=== PATIENT | male | born 1940 | race Caucasian/White ===

== ENCOUNTER 2022-05-12 10:32 | Outpatient (CLI) | payer MEDICARE, BC, SELFPAY ==
[2022-05-12 17:13] LABS: Chloride* 98 mmol/L (96-114); Potassium* 4.3 mmol/L (3.6-5.1); Sodium* 141 mmol/L (135-149)
[2022-05-12 17:15] LABS: Creatinine* 1.9 mg/dL (0.5-1.5); Estimated Glomerular Filt Rate 35 ml/min
[2022-05-12 17:16] LABS: Blood Urea Nitrogen* 51 mg/dL (7-30); Calcium* 9.3 mg/dL (8.4-10.6); Carbon Dioxide* 33 mmol/L (20-32); Glucose* 140 mg/dL (60-115)
== END 2022-05-12 10:33 | disposition home or self-care (01) ==
LOC: LONREF 10:34
PROVIDERS: PCP Family Medicine; Visit Provider Family Medicine
DX: I50.9 Heart failure, unspecified (principal)
CPT/HCPCS: 80048

== ENCOUNTER 2022-05-24 07:57 | Outpatient (CLI) | payer MEDICARE, BC, SELFPAY ==
[2022-05-24 11:42] LABS: Chloride* 91 mmol/L (96-114)
[2022-05-24 11:43] LABS: Albumin* 4.3 g/dL (3.3-5.0); Potassium* 3.8 mmol/L (3.6-5.1); Sodium* 137 mmol/L (135-149)
[2022-05-24 11:45] LABS: Carbon Dioxide* 35 mmol/L (20-32); Creatinine* 2.2 mg/dL (0.5-1.5); Estimated Glomerular Filt Rate 29 ml/min
[2022-05-24 11:46] LABS: Blood Urea Nitrogen* 55 mg/dL (7-30); Calcium* 9.6 mg/dL (8.4-10.6); Glucose* 157 mg/dL (60-115); Phosphorus* 4.1 mg/dL (2.5-4.5)
[2022-05-24 11:51] LABS: Creatinine Urine 40.1 mg/dL
[2022-05-24 11:55] LABS: Microalbumin Creatinine Ratio 190 mg/g (0-30); Microalbumin Urine 8 mg/dL
== END 2022-05-24 07:58 | disposition home or self-care (01) ==
PROVIDERS: Internal Medicine Nephrology; PCP Family Medicine; Visit Provider Family Medicine
DX: N18.30 Chronic kidney disease, stage 3 unspecified (principal); N17.9 Acute kidney failure, unspecified; D64.9 Anemia, unspecified; E78.5 Hyperlipidemia, unspecified; I10 Essential (primary) hypertension
CPT/HCPCS: 80069; 82043; 82570

== ENCOUNTER 2022-06-06 08:18 | Outpatient (CLI) | payer MEDICARE, BC, SELFPAY ==
--- NOTE | 2022-06-06 08:45 | CRLHL7_ITS ---
For Patients: As a result of the Century Cures Act, medical imaging exams and procedure reports are released immediately into your electronic medical record. You may view this report before your referring provider. If you have questions, please contact your health care provider. CLINICAL HISTORY: CHRONIC KIDNEY DISEASE, STAGE 3 UNSPECIFIED, URINE RETENTION COMPARISON: 02/23/2022 and 01/25/2022 TECHNIQUE: Tian scale and color Doppler images were acquired of the kidneys and urinary bladder. FINDINGS: There is a simple exophytic cyst arising from the upper pole of the right kidney measuring 2.9 x 2.7 x 3.4 cm, unchanged. A small exophytic cyst arises from the lower pole measuring 1.8 x 1.5 x 1.6 cm. 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 No hydronephrosis. The right kidney measures 12.2cm in length and the left kidney measures 12.1cm in length. The renal cortex appears of normal thickness. Normal color Doppler flow to both kidneys. The prevoid bladder volume is 100 cc. Postvoid bladder volume 49 cc. Lobular masslike areas are located within the inferior bladder. IMPRESSION: Simple right renal cysts on the right and incidental benign angiomyolipoma left kidney. No hydronephrosis. Lobular masslike areas associated with the inferior bladder, differential diagnosis includes bladder mass or prostatomegaly. CT urogram recommended. Dictated by Bear Reeder MD @ 06/06/2022 9:54:41 AM (Electronically Signed)
== END 2022-06-06 08:19 | disposition home or self-care (01) ==
LOC: US 08:19
PROVIDERS: PCP Family Medicine; Visit Provider Internal Medicine Nephrology
DX: N18.30 Chronic kidney disease, stage 3 unspecified (principal); N28.1 Cyst of kidney, acquired
CPT/HCPCS: 76770

== ENCOUNTER 2022-06-22 08:47 | Outpatient (CLI) | payer MEDICARE, BC, SELFPAY ==
--- OUTSIDE RECORDS SUMMARY | 2022-06-22 08:51 | XMS_ITS | Encounter Summary ---
:1940 Author Organization [place] Address [address] 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 documented as of this encounter Plan of Treatment Upcoming Encounters Date Type Specialty Care Team Description 06/26/2022 Ancillary Procedure Cardiology Seng Canchola MD [address] [place] [address] [place] [id number] (Wo rk) 08/16/2022 Ancillary Procedure Cardiology Timothy Smith MD [address] [place] [phone] (Wo rk) 08/16/2022 Office Visit Cardiology Timothy Smith MD [address] [place] [address] (Wo rk) documented as of this encounter Visit Diagnoses Not on filedocumented in this encounter Care Teams Section Supervisor Relationship Specialty Start Date End Date Graham Licona MD PCP - General Family Medicine 06/30/21 [facility] [address] [place] [address] Timothy Smith MD Assigned Heart and Vascular 07/23/20 [address] Provider [place] [id number] documented as of this encounter
--- OUTSIDE RECORDS SUMMARY | 2022-06-22 08:51 | XMS_ITS | Encounter Summary ---
:1940 Author Organization [place] Address [address] [place] [address] Care Team Providers Name Role Phone Timothy Smith MD Unavailable Graham Licona MD Primary Care Provider Reason for Visit Reason Onset Date Comments fax clearance 02/14/2022 Needs cardiac cleara nce for 02/21/22 surgery Encounter Details Date Type Department Care Team Description 02/14/2022 Telephone [facility] Zarina Smith MD fax clearance (Needs [facility] [place] [address] cardiac clearance for [address] 02/21/22 surgery) [facility] [address] [place] [address] [place] [phone] Social History Tobacco Use Types Packs/Day Years Used Date Never Smoker Smokeless Tobacco: Never Used Alcohol Use Standard Drinks/Week Comments No 0 (1 standard drink = 0.6 oz pure alcoho l) Sex Assigned at Date Recorded Not on file COVID-19 Exposure Response Date Recorded In the last 10 days, have you been in contact with No / Unsu re 02/08/2022 2:58 PM CDT someone who was confirmed or suspected to have Coronavirus/COVID-19? documented as of this encounter Miscellaneous Notes Telephone Encounter - Lacy Washington RN - 02/14/2022 4:23 PM CDT Second request from [facility] for cardiac clearance letter requested to be faxed [phone]. Fax sent. JNelsonRN Telephone Encounter - Temitope Tamayo RN - 02/14/2022 2:14 PM CDT Faxed over to [facility] signed letter from Dr Smith that patient is cleared for hip surgery scheduled for 02/21. Signed letter sent to [facility] to scan. Maldonado RN Telephone Encounter - Timothy Smith MD - 02/14/2022 1:13 PM CDT YES Telephone Encounter - Anel Corado - 02/14/2022 9:41 AM CDT [facility] Call [facility] Phone Message May a detailed message be left on voicemail: yes Reason for Call: Other: [place] calling in stating that pt is having hip surgery on 02/21/22 and they are needing a letter for cardiac clearance faxed over to them at [phone]. Action Taken: Message routed to: Other: ru [facility] Travel Screening: Not Applicable documented in this encounter Plan of Treatment Upcoming Encounters Date Type Specialty Care Team Description 06/26/2022 Ancillary Procedure Cardiology Seng Canchola MD [address] [place] [address] [place] [phone] (Wo rk) 08/16/2022 Ancillary Procedure Cardiology Timothy Smith MD [address] [place] [phone] (Wo rk) 08/16/2022 Office Visit Cardiology Timothy Smith MD [address] [place] [phone] (Wo rk) documented as of this encounter Visit Diagnoses Not on filedocumented in this encounter Care Teams Brusher Operator Relationship Specialty Start Date End Date Graham Licona MD PCP - General Family Medicine 06/30/21 [facility] [address] [place] [address] Timothy Smith MD Assigned Heart and Vascular 07/23/20 [address] Provider [place] [phone] documented as of this encounter
--- OUTSIDE RECORDS SUMMARY | 2022-06-22 08:51 | XMS_ITS | Encounter Summary ---
:1940 Author Organization [place] Address [address] [place] [address] Care Team Providers Name Role Phone Timothy Smith MD Unavailable Graham Licona MD Primary Care Provider Encounter Details Date Type Department Care Team Description 05/03/2022 Travel Social History Tobacco Use Types Packs/Day Years Used Date Never Smoker Smokeless Tobacco: Never Used Alcohol Use Standard Drinks/Week Comments No 0 (1 standard drink = 0.6 oz pure alcoho l) Sex Assigned at Date Recorded Not on file COVID-19 Exposure Response Date Recorded In the last 10 days, have you been in contact Unable to asse ss 05/03/2022 12:42 PM CDT with someone who was confirmed or suspected to have Coronavirus/COVID-19? documented as of this encounter Plan of Treatment Upcoming Encounters Date Type Specialty Care Team Description 06/26/2022 Ancillary Procedure Cardiology Seng Canchola MD [address] [place] [address] [place] [id number] (Wo rk) 08/16/2022 Ancillary Procedure Cardiology Timothy Smith MD [address] [place] [phone] (Wo rk) 08/16/2022 Office Visit Cardiology Timothy Smith MD [address] [place] [phone] (Wo rk) documented as of this encounter Visit Diagnoses Not on filedocumented in this encounter Care Teams Motorcycle Engine Assembler Relationship Specialty Start Date End Date Graham Licona MD PCP - General Family Medicine 06/30/21 [facility] [address] [place] [address] Timothy Smith MD Assigned Heart and Vascular 07/23/20 [address] [facility] [address] Provider [place] [address] documented as of this encounter
--- OUTSIDE RECORDS SUMMARY | 2022-06-22 08:51 | XMS_ITS | Encounter Summary ---
:1940 Author Organization [facility] Address [address] [place] [address] Care Team Providers Name Role Phone Timothy Smith MD Unavailable Graham Licona MD Primary Care Provider Reason for Visit CV Testing (Routine) - Pending Review Specialty Diagnoses / Procedures Referred By Contact Refer red To Contact Diagnoses Cardiac pacemaker in situ Chris De Leon MD Procedures Cardiac Device Check - Remote (Post implant follow up) [address] [place] [id number] Referral ID Status Reason Start Date Expiration Date Visits V isits Requested Authorized [id number] Pending 07/05/2021 07/05/2022 1 1 Review Encounter Details Date Type Department Care Team Description 11/23/2021 Ancillary Procedure [facility] Chris De Leon, Cardiac pacemaker in [facility] situ Heart Care [address] [facility] [address] [place] [address] [place] [phone] Social History Tobacco Use Types Packs/Day Years Used Date Never Smoker Smokeless Tobacco: Never Used Alcohol Use Standard Drinks/Week Comments No 0 (1 standard drink = 0.6 oz pure alcoho l) Sex Assigned at Date Recorded Not on file documented as of this encounter Plan of Treatment Upcoming Encounters Date Type Specialty Care Team Description 06/26/2022 Ancillary Procedure Cardiology Seng Canchola MD [address] [place] [phone] (Wo rk) 08/16/2022 Ancillary Procedure Cardiology Timothy Smith MD [address] [place] [phone] (Wo rk) 08/16/2022 Office Visit Cardiology Timothy Smith MD [address] [place] [phone] (Wo rk) documented as of this encounter Procedures Procedure Name Priority Date/Time Associated Comments Diagnosis INTERROGATION DEVICE Routine 11/24/2021 1:06 PM Cardiac pacema ker Results for this EVAL REMOTE ICD UP TO SINGING TELEGRAM PERFORMER in situ proced ure are in 90 the results section. documented in this encounter Results INTERROGATION DEVICE EVAL REMOTE ICD UP TO 90 (11/24/2021 1:06 PM SINGING TELEGRAM PERFORMER) Component Value Ref Test Analysis Performed Pathologis t Range Method Time At Signature Date Time [id number] [employer] Interrogation Session Implantable [place] [employer] Pulse Generator Senior Support Engineer Implantable D432 RESONATE EL [employer] Pulse Generator ICD Model Implantable [id number] [employer] Pulse Generator Serial Number Type Remote [employer] Interrogation Session Clinic Name [facility] [employer] Implantable Defibrillator [employer] Pulse Generator Type Implantable [id number] [employer] Pulse Generator Implant Date Implantable Lead [place] [employer] Senior Support Engineer Implantable Lead [address] [place] [employer] Model 4-Site S Implantable Lead [id number] [employer] Serial Number Implantable Lead [id number] [employer] Implant Date Implantable Lead Bipolar Lead [employer] Polarity Type Implantable Lead UNKNOWN [employer] Location Detail 1 Implantable Lead Right Ventricle MEDTRON IC Location Brandon Setting VVIR [employer] Mode (NBG Code) Brandon Setting 50 {beats}/ [employer] Lower Rate Limit min Brandon Setting 130 {beats}/ [employer] Maximum Sensor min Rate Lead Channel Bipolar [employer] Setting Sensing Polarity Lead Channel 0.6 mV [employer] Setting Sensing Sensitivity Lead Channel Adaptive [employer] Setting Sensing Adaptation Mode Lead Channel Bipolar [employer] Setting Pacing Polarity Lead Channel 0.4 ms [employer] Setting Pacing Pulse Width Lead Channel 2.0 V [employer] Setting Pacing Amplitude Lead Channel Adaptive [employer] Setting Pacing Capture Mode Zone Setting VF [employer]TR[employer]IC Type Category Zone Setting VF [employer] Vendor Type Category Zone Setting 273 ms MEDTRONIC Detection Interval Zone Setting VT MEDTR[employer]IC Type Category Zone Setting VT MEDTR[employer]IC Vendor Type Category Zone Setting 353 ms [employer] Detection Interval Zone Setting VT MEDTR[employer]IC Type Category Zone Setting VT-1 [employer] Vendor Type Category Zone Setting 400 ms [employer] Detection Interval Lead Channel 469 ohm [employer] Impedance Value Lead Channel 0.7 V [employer]IC Pacing Threshold Amplitude Lead Channel 0.4 ms [employer] Pacing Threshold Pulse Width Battery Date [employer] Time of Measurements Battery Status Beginning of [employer] Service Battery 174 mo [employer] Remaining Longevity Battery 100 % [employer] Remaining Percentage Capacitor Charge Reformation [employer] Type Capacitor Last [id number] [employer] Charge Date Time Capacitor Charge 9.1 s [employer] Time Brandon Statistic [id number] [employer] Date Time Start Brandon Statistic [id number] [employer] Date Time End Brandon Statistic 3 % [employer]TR[employer]IC RV Percent Paced Therapy 0 [employer]TRONIC Statistic Recent Shocks Delivered Therapy 0 MEDTRONIC Statistic Recent Shocks Aborted Therapy 0 MEDTRONIC Statistic Recent ATP Delivered Therapy [id number] [employer] Statistic Recent Date Time Start Therapy [id number] [employer]IC Statistic Recent Date Time End Therapy 0 [employer]TRONIC Statistic Total Shocks Delivered Therapy 0 [employer]TR[employer]IC Statistic Total Shocks Aborted Therapy 8 [employer]TR[employer]IC Statistic Total ATP Delivered Therapy [id number] [employer]IC Statistic Total Date Time End Episode 0 [employer]TRONIC Statistic Recent Count Episode Other MEDTRONIC Statistic Type Category Episode 127 [employer]TR[employer]IC Statistic Recent Count Episode VT MEDTRONIC Statistic Type Category Episode NSVT [employer]TR[employer]IC Statistic Vendor Type Category Episode 0 MEDTRONIC Statistic Recent Count Episode VF [employer]TRONIC Statistic Type Category Episode VF [employer]TR[employer]IC Statistic Vendor Type Category Episode 0 MEDTRONIC Statistic Recent Count Episode VT MEDTRONIC Statistic Type Category Episode VT MEDTRONIC Statistic Vendor Type Category Episode 0 MEDTRONIC Statistic Recent Count Episode VT MEDTRONIC Statistic Type Category Episode VT-1 MEDTR[employer]IC Statistic Vendor Type Category Episode [id number] [employer] Statistic Recent Date Time Start Episode [id number] [employer] Statistic Recent Date Time End Episode [id number] [employer] Statistic Recent Date Time Start Episode [id number] [employer] Statistic Recent Date Time End Episode [id number] [employer] Statistic Recent Date Time Start Episode [id number] [employer]IC Statistic Recent Date Time End Episode [id number] [employer] Statistic Recent Date Time Start Episode [id number] [employer] Statistic Recent Date Time End Episode [id number] [employer] Statistic Recent Date Time Start Episode [id number] [employer]TR[employer]IC Statistic Recent Date Time End Episode APM-55 [employer] Identifier Episode Type Periodic EGM [employer] Category Episode Date [id number] [employer]ONIC Time Episode [id number]-160 [employer] Identifier Episode Type Other [employer]TRONIC Category Episode Date [id number] [employer] Time Anatomical Region Laterality Modality Other Specimen (Source) Anatomical Collection Method Collection Time Re ceived Time Location / / Volume Laterality 11/23/2021 12:40 AM SINGING TELEGRAM PERFORMER Narrative 12/04/2021 10:04 AM SINGING TELEGRAM PERFORMER [place] [employer] Resonate (S) ICD Remote Device Check SALES CLERK FOOD: 3 % ?? Mode: VVIR 50-130 ?? Presenting Rhythm: Irregular VS. On eliq uis. Heart Rate: Stable with good variability . ?? Sensing: WNL ?? Pacing Threshold: WNL ?? Impedance: WNL ?? Battery Status: 14.5 years ? Ventricular Arrhythmia: 127 NSVT episode s logged. 3 EGMs show RVR. The others show NSVT lasting 4-16 seconds wi th rates in the 150s-160s. Patient denies any associated symptoms. ATP: 0 ?? Shocks: 0 ?? Care Plan: Follow up in January with remote device check. He will be due see Dr. Smith in March. Called patient and revie wed results and plan. SIENNA Bolanos I have reviewed and interpreted the agustín ce interrogation, settings, programming and nurse's summary. The dev ice is functioning within normal device parameters. I agree with the curr ent findings, assessment and plan. Chris Hinds MD [facility] C[facility] SERVICES ORDERABL ES documented in this encounter Visit Diagnoses Diagnosis Cardiac pacemaker in situ documented in this encounter Care Teams Folding Rules Printing Machine Operator Relationship Specialty Start Date End Date Graham Licona MD PCP - General Family Medicine 06/30/21 [facility] [address] [place] [address] Timothy Smith MD Assigned Heart and Vascular 07/23/[address] Provider [place] [phone] documented as of this encounter
--- OUTSIDE RECORDS SUMMARY | 2022-06-22 08:51 | XMS_ITS | Encounter Summary ---
:1940 Author Organization [facility] Address [address] [place] [address] Care Team Providers Name Role Phone Timothy Smith MD Unavailable Graham Licona MD Primary Care Provider Encounter Details Date Type Department Care Team Description 03/20/2022 Telephone [facility] Janeth Huizar RN [address] [place] [address] Social History Tobacco Use Types Packs/Day Years Used Date Never Smoker Smokeless Tobacco: Never Used Alcohol Use Standard Drinks/Week Comments No 0 (1 standard drink = 0.6 oz pure alcoho l) Sex Assigned at Date Recorded Not on file documented as of this encounter Miscellaneous Notes Telephone Encounter - Charito Huizar RN - 03/21/2022 3:57 PM CDT Spoke with pt. He verbalizes understanding of medication instructions. -Pt to take 25mg of Toprol XL daily. -start Amiodarone 200mg BID for 1 month. Then decrease back down to 200mg every day. Pt requested script be sent to [facility] [employer] [facility] in [place], [place]. Will escribe this. Pt will call if he has any adverse reactions to this medication switch. Telephone Encounter - Timothy Smith MD - 03/21/2022 3:40 PM CDT OK to keep current dose of metoprolol. Telephone Encounter - Charito Huizar RN - 03/21/2022 10:52 AM CDT Is he to continue the Metoprolol as well? Pt was told by hospitalist at [place] to take 1/2 of 25mg (12.5mg) Toprol XL. He has been taking 1/2 of a 50mg tab (25mg) as he did not get a script for the 25mg tab. If so, what dose should he be on? The 12.5mg or 25mg? Telephone Encounter - Timothy Smith MD - 03/20/2022 4:24 PM CDT Recommend reload amiodarone 200 mg bid for 1 month, then drop to 200 mg daily. Consider VT ablation if he continues to have recurrent VT with ICD shocks after the above trial. Telephone Encounter - Charito Huizar RN - 03/20/2022 2:58 PM CDT Pt had scheduled remote device check today. Last on was on 11/23/21. Since then, he has had multiple alerts that have been addressed for VT, ATP and shocks. Pt has had 90+ episodes of NSVT since last check. Pt reports he was in the hospital at [facility]. He reports he was discharged on Metoprolol XL and was told to take 12.5mg or 1/2 tab daily. Pt reports med he was given is the Toprol XL 50 mg. He is not wanting to divide these in 1/4 tabs so has been halfing them and taking 25mg of Toprol XLsince he doesn't have the correct pill. Attempted to reach Dr. Shaikh SANTANA at [place] but prescribing MD was a hospitalist and he is unavailable. Per his note on 5/24/22: CHANGE how you take these medicines Instructions metoprolol succinate 25 mg Sustained-Release tablet For diagnoses: Typical atrial flutter (HC) What changed: medication strength how much to take Commonly known as: TOPROL XL Take 0.5 Tablets (12.5 mg) by mouth once daily. Will route to Dr. Smith as pt on wrong dose of Metoprolol and unable to reach prescribing MD. Adam Huizar RN documented in this encounter Plan of Treatment Upcoming Encounters Date Type Specialty Care Team Description 06/26/2022 Ancillary Procedure Cardiology Seng Canchola MD [address] [place] [phone] (Wo rk) 08/16/2022 Ancillary Procedure Cardiology Timothy Smith MD [address] [place] [phone] (Wo rk) 08/16/2022 Office Visit Cardiology Timothy Smith MD [address] [place] [phone] (Wo rk) documented as of this encounter Visit Diagnoses Diagnosis Sustained VT (ventricular tachycardia) - Primary Paroxysmal ventricular tachycardia documented in this encounter Care Teams Chucking Lathe Operator Relationship Specialty Start Date End Date Graham Licona MD PCP - General Family Medicine 06/30/21 [facility] [address] [place] [address] Timothy Smith MD Assigned Heart and Vascular 07/23/[address] Provider [place] [id number] documented as of this encounter
--- OUTSIDE RECORDS SUMMARY | 2022-06-22 08:51 | XMS_ITS | Encounter Summary ---
:1940 Author Organization [place] Address [address] [place] [address] Care Team Providers Name Role Phone Timothy Smith MD Unavailable Graham Licona MD Primary Care Provider Reason for Visit Reason Comments Heart Problem ICD shocks Encounter Details Date Type Department Care Team Description 01/27/2022 Documentation Only [facility] Catherine Aranda eart Problem (ICD [facility] [place] Cren[place] LPN shocks) [address] [facility] [address] [place] [address] Social History Tobacco Use Types Packs/Day Years Used Date Never Smoker Smokeless Tobacco: Never Used Alcohol Use Standard Drinks/Week Comments No 0 (1 standard drink = 0.6 oz pure alcoho l) Sex Assigned at Date Recorded Not on file documented as of this encounter Progress Notes Catherine Aranda LPN - 01/27/2022 3:47 PM CDT Pt called my line as we have done patient Assistance in the past, so he has my direct ph #. I picked up the call live-don tells me he has had 4 shocks today. I tried to transfer call, but it would have gone to , so I walked down to our device RN Ivette , and gave her the message, she agrees to call pt yvette cummins Kitty Myers RN - 01/27/2022 3:47 PM CDT Called and spoke with patient regarding his shocks. He states that he got 4 shocks today. He did notpass out but he did feel somewhat faint. He feels well now. Patient states [facility] They felt that he was in stable condition and he was discharged home. Patient states that he will not be back before the clinic closes this tonight. He will go send a remote device transmission when he gets home so we can make sure that we have the EGMs from his shocks available to review on Sunday. Patient states understanding and agreement with plan. He is currently scheduled to see Dr. Smith 02/08/22. documented in this encounter Plan of Treatment Upcoming Encounters Date Type Specialty Care Team Description 06/26/2022 Ancillary Procedure Cardiology Seng Canchola MD [address] [place] [phone] (Wo rk) 08/16/2022 Ancillary Procedure Cardiology Timothy Smith MD [address] [place] [address] (Wo rk) 08/16/2022 Office Visit Cardiology Timothy Smith MD [address] [place] [address] (Wo rk) documented as of this encounter Visit Diagnoses Not on filedocumented in this encounter Care Teams Lead Cytogenetic Technologist Relationship Specialty Start Date End Date Graham Licona MD PCP - General Family Medicine 06/30/21 [facility] [address] [place] [address] Timothy Smith MD Assigned Heart and Vascular 07/23/[address] Provider [place] [id number] documented as of this encounter
--- OUTSIDE RECORDS SUMMARY | 2022-06-22 08:51 | XMS_ITS | Encounter Summary ---
:1940 Author Organization [facility] Address [address] [place] [address] Care Team Providers Name Role Phone Timothy Smith MD Unavailable Graham Licona MD Primary Care Provider Reason for Visit Reason Comments Medication Question Re eliquis dose Encounter Details Date Type Department Care Team Description 05/29/[address] [facility] Catherine Aranda edication Question Heart [facility] Patt Crenshaw LPN (Re eliquis dose) [address] [facility] [address] [place] [id number] Social History Tobacco Use Types Packs/Day [...] have Coronavirus/COVID-19? documented as of this encounter Progress Notes Catherine Aranda LPN - 05/29/2022 9:22 AM CDT Pt called and left me a VM message, he wanted to make sure he was still supposed to be taking eliquis 5 mg I did a review of his last OV w/ Dr Smith, and YEs he is to remain on this medication and dose-did also remind him that his remote device check is sched 06-26-22, and next EP visit with Dr Smith is 08-16-22 Pt verbalized his understanding and agreement yvette cummins documented in this encounter Plan of Treatment Upcoming Encounters Date Type Specialty Care Team Description 06/26/2022 Ancillary Procedure Cardiology Seng Canchola MD [address] [place] [id number] (Wo rk) 08/16/2022 Ancillary Procedure Cardiology Timothy Smith MD [address] [place] [id number] (Wo rk) 08/16/2022 Office Visit Cardiology Tiomthy Smith MD [address] [place] [id number] (Wo rk) documented as of this encounter Visit Diagnoses Not on filedocumented in this encounter Care Teams Hatchery Laborer Relationship Specialty Start Date End Date Graham Licona MD PCP - General Family Medicine 06/30/21 [facility] [address] [place] [address] Timothy Smith MD Assigned Heart and Vascular 07/23/[address] Provider [place] [id number] documented as of this encounter
--- OUTSIDE RECORDS SUMMARY | 2022-06-22 08:51 | XMS_ITS | Encounter Summary ---
:1940 Author Organization [facility] Address [address] [place] [address] Care Team Providers Name Role Phone Timothy Smith MD Unavailable Graham Licona MD Primary Care Provider Reason for Visit Reason Onset Date Comments Implantable Devices 05/01/2022 Encounter Details Date Type Department Care Team Description 05/01/2022 Telephone [facility] Eve Santos, Impla ntable Devices [facility] Heart RN Care [address] [facility] [address] [place] [address] Social History Tobacco Use Types Packs/Day Years Used Date Never Smoker Smokeless Tobacco: Never Used Alcohol Use Standard Drinks/Week Comments No 0 (1 standard drink = 0.6 oz pure alcoho l) Sex Assigned at Date Recorded Not on file documented as of this encounter Miscellaneous Notes Telephone Encounter - Timothy Smith MD - 05/01/2022 3:07 PM CDT It is ok for the primary care physician to take care of diuretics. Telephone Encounter - Eve Santos RN - 05/01/2022 2:31 PM CDT Images from the original note were not included. Alert received for HeartLogic??? Heart Failure Index remains above the alert recovery threshold of 6. HeartLogic Index currently measuring 17. Spoke with patient who states he has gained about 12 lbs in one month and he believes this is due to water weight. Has not noticed any swelling or edema. Patient has been in touch with his primary MD, Dr. Licona, regarding this. Per patient, Dr. Licona prescribed 2.5mg metolazone daily which he started taking about 2 weeks ago. Pt states he has not noticed any decrease in weight since starting onthis medication. (Patient also takes 40mg lasix daily). Pt denies any worseing SOB or activity intolerance. Pt did sound somewhat winded to me when talking with him over the phone; when questioned about this patient states he has been working to get back to baseline since his hospitalization for a hip replacement in January. Spoke with SIENNA Milian at patient's primary clinic who will be contacting Dr. Licona for review and recommendations regarding of above information. Will also route to Dr. Smith as an FYI. SIENNA Partida Refer to below for picture of HeartLogic trends documented in this encounter Plan of Treatment Upcoming Encounters Date Type Specialty Care Team Description 06/26/2022 Ancillary Procedure Cardiology Seng Canchola MD [address] [place] [id number] (Wo rk) 08/16/2022 Ancillary Procedure Cardiology Timothy Smith MD [address] [place] [id number] (Wo rk) 08/16/2022 Office Visit Cardiology Timothy Smith MD [address] [place] [id number] (Wo rk) documented as of this encounter Visit Diagnoses Not on filedocumented in this encounter Care Teams Maintenance Truck Driver Relationship Specialty Start Date End Date Graham Licona MD PCP - General Family Medicine 06/30/21 [facility] [address] [place] [address] Timothy Smith MD Assigned Heart and Vascular 07/23/20 [address] Provider [place] [id number] documented as of this encounter
--- OUTSIDE RECORDS SUMMARY | 2022-06-22 08:51 | XMS_ITS | Encounter Summary ---
:1940 Author Organization [facility] Address [address] [place] [address] Care Team Providers Name Role Phone Timothy Smith MD Unavailable Graham Licona MD Primary Care Provider Encounter Details Date Type Department Care Team Description 03/06/2022 [facility] Keyshawn Myers RN [id number] [place] [address] Social History Tobacco Use Types [...] this encounter Miscellaneous Notes Telephone Encounter - Kitty Myers RN - 03/06/2022 9:45 AM CDT Images from the original note were not included. Remote alert received for heart logic index at 38 and trending up. Patient states that he had a hip replacement done 2 weeks ago. His legs are swollen but he is still at inpatient rehab and they are wrapping his legs and monitoring him closely. Will continue to monitor. documented in this encounter Plan of Treatment Upcoming Encounters Date Type Specialty Care Team Description 06/26/2022 Ancillary Procedure Cardiology Seng Canchola MD [address] [place] [id number] (Wo rk) 08/16/2022 Ancillary Procedure Cardiology Timothy Smith MD [address] [place] [id number] (Wo rk) 08/16/2022 Office Visit Cardiology Timothy Smith MD [address] [place] [id number] (Wo rk) documented as of this encounter Visit Diagnoses Not on filedocumented in this encounter Care Teams Psych Therapist Relationship Specialty Start Date End Date Graham Licona MD PCP - General Family Medicine 06/30/21 [facility] [address] [place] [address] Timothy Smith MD Assigned Heart and Vascular 07/23/[address] Provider [place] [id number] documented as of this encounter
--- OUTSIDE RECORDS SUMMARY | 2022-06-22 08:51 | XMS_ITS | Clinical Summary ---
:1940 Author Organization [facility] Address [address] [facility] [place] [address] Care Team Providers Name Role Phone Timothy Smith MD Unavailable Graham Licona MD Primary Care Provider Allergies Active Allergy Reactions Severity Noted Date Comments Adhesive Tape Rash Low 01/20/2022 Pravastatin Rash Medium 06/30/2021 Medications Medication Sig Dispensed Refills Start Date End Date Status ACYCLOVIR 400 MG OR 1 TABLET 3 TIMES 30 6 04/25/2004 Active TABS DAILY-as need for Cold sores fenofibrate 160 MG Take 160 mg by 0 Active tablet mouth daily. furosemide (LASIX) 40 Take 40 mg by 0 Active MG tablet mouth daily nitroGLYcerin Place 1 tablet 100 tablet 3 02/24/2020 Active (NITROSTAT) 0.4 MG (0.4 mg) under sublingual the tongue every tabletIndications: 5 minutes as Coronary artery disease needed for chest involving [place] pain coronary artery of [place] heart without angina pectoris metoprolol succinate ER Take 1 tablet 90 tablet 3 03/23/2021 Active (TOPROL-XL) 50 MG 24 hr (50 mg) by mouth tabletIndications: daily Persistent atrial fibrillation (H) atorvastatin (LIPITOR) Take 20 mg by 0 Active 20 MG tablet mouth daily loratadine (CLARITIN) Take 10 mg by 0 Active 10 MG tablet mouth daily glimepiride (AMARYL) 2 Take 2 mg by 0 Active MG tablet mouth 2 times daily biotin 1000 MCG TABS Take 1,000 mcg 0 Active tablet by mouth daily omeprazole (PRILOSEC) Take 20 mg by [address] capsule mouth daily metFORMIN (GLUCOPHAGE) Take 2 tablets 0 06/30/2021 Active 500 MG (1,000 mg) by tabletIndications: Type mouth 2 times 2 diabetes mellitus daily (with with complication (H) meals) tamsulosin (FLOMAX) 0.4 Take 0.4 mg by 0 Active MG capsule mouth every evening apixaban ANTICOAGULANT Take 1 tablet (5 60 tablet 3 09/06/2021 Active (ELIQUIS) 5 MG mg) by mouth 2 tabletIndications: times daily Persistent atrial fibrillation (H) amiodarone (PACERONE) Take 1 tablet 90 tablet 3 01/30/2022 Active 200 MG (200 mg) by tabletIndications: mouth daily Sustained VT (ventricular tachycardia) amiodarone (PACERONE) Take 1 tablet 60 tablet 0 03/21/2022 Active 200 MG (200 mg) by tabletIndications: mouth daily Sustained VT (ventricular tachycardia) Active Problems Problem Noted Date Morbid obesity 04/26/2021 Sustained VT (ventricular tachycardia) 01/29/2021 Localized edema 06/11/2018 Chest pain 03/07/2016 ACS (acute coronary syndrome) 02/02/2016 Other psoriasis 04/25/2004 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 Provider to review Atrial flutter Sleep apnea Coronary artery disease A-fib Encounters Date Type Specialty Care Team Description 05/29/2022 Documentation Only Cardiology Catherine Aranda, Med ication Question (Re EXTRUSION DIE COORDINATOR eliquis dose) 05/03/2022 Telephone Cardiology Timothy Smith MD Orders (Cardi ac device check in-clinic / Extend order ) 05/03/2022 Travel 05/01/2022 Telephone Cardiology Eve Santos, RN Implant able Devices from Last 3 Months Immunizations Name Administration Dates Next Due Influenza (IIV3) PF 08/06/2004 Family History Medical History Relation Comments Obesity Daughter 2 Heart Disease Father Obesity Paternal Grandmother Obesity Son 2 Relation Status Comments Daughter 1 Alive Daughter 2 Father (Age 87) Paternal Grandmother Son 1 Alive Son 2 Social History Tobacco Use Types Packs/Day Years Used Date Never Smoker Smokeless Tobacco: Never Used Alcohol Use Standard Drinks/Week Comments No 0 (1 standard drink = 0.6 oz pure alcoho l) Sex Assigned at Date Recorded Not on file Last Filed Vital Signs Vital Sign Reading Time Taken Comments Blood Pressure 110/70 02/08/2022 3:14 PM CDT Pulse 75 02/08/2022 3:14 PM CDT Temperature 36.6 ??C (97.9 ??F) 07/04/2021 12:03 PM CDT Respiratory Rate 16 07/04/2021 4:00 PM CDT Oxygen Saturation 95% 02/08/2022 3:14 PM CDT Inhaled Oxygen Concentration - - Weight 124.5 kg (274 lb 8 oz) 02/08/2022 3:14 PM CDT Height 174 cm (5' 8.5) 02/08/2022 3:14 PM CDT Body Mass Index 41.13 02/08/2022 3:14 PM CDT Plan of Treatment Upcoming Encounters Date Type Specialty Care Team Description 06/26/2022 Ancillary Procedure Cardiology Seng Canchola MD [address] [place] [id number] (Wo rk) 08/16/2022 Ancillary Procedure Cardiology Timothy Smith MD [address] [place] [id number] (Wo rk) 08/16/2022 Office Visit Cardiology Timothy Smith MD [address] [place] [id number] (Wo rk) Health Maintenance Due Date Last Done Comments ADVANCE CARE PLANNING 1940 ANNUAL REVIEW OF HM ORDERS 1940 DIABETIC FOOT EXAM 1940 EYE EXAM 1940 HF ACTION PLAN 1940 MICROALBUMIN 1940 FALL RISK ASSESSMENT 2003 MEDICARE ANNUAL WELLNESS 2003 VISIT ZOSTER IMMUNIZATION (2 of 08/26/2014 07/01/2014 3) LIPID 02/02/2017 02/03/2016, 04/25/2004 ALT 07/04/2019 07/04/2018, 05/03/2018, 04/25/2004 A1C 09/19/2021 06/20/2021, 02/03/2016, 02/02/2012, Additional history exists PHQ-2 (once per calendar 10/01/2021 year) BMP 01/02/2022 07/04/2021, 02/03/2019, 01/22/2019, Additional history exists INFLUENZA VACCINE (#1) 2022 06/28/2021, 06/24/2020, 08/15/2019, Additional history exists CBC 07/04/2022 07/04/2021, 07/04/2018, 05/31/2018, Additional history exists DTAP/TDAP/TD IMMUNIZATION 08/02/2031 08/02/2021, 06/07/2011 , (3 - Td or Tdap) 09/29/2002, Additional history exists Pneumococcal Vaccine: 65+ Completed 10/18/2015, 05/29/2011 , Years 07/07/2005, Additional history exists TSH W/FREE T4 REFLEX Completed 05/03/2018, 02/02/2012, 02/02/2012 COVID-19 Vaccine Completed 01/19/2022, 07/14/2021, 12/04/2020, Additional history exists IPV IMMUNIZATION Aged Out No longer eligi ble based on patient 's age to complete this topic MENINGITIS IMMUNIZATION Aged Out No longe r eligible based on patient 's age to complete this topic Medical Devices Implanted Type Area Twitchell Operator Device Shelf Model / Identifier Expiration Serial / Date Lot [facility]cd [facility] Df4 - [id number] ICD [place] 09/09/2021 [id number] / Implanted: Qty: 1 on 07/04/2021 at [facility] [employer] [place] [id number] / [id number] Lead Wires- Right Atrium-02/04/2016 Lead Wires- [employer] MEDICA L [id number]-52 / Implanted: 02/04/2016 by Timothy Smith MD (Quantity not on file) R ight [employer] INC [id number] / Explanted: 07/04/2021 (Quantity not on file) Lead Wires- Right Ventricle-02/04/2016 Lead Wires- [employer] MED ICAL 8TC-58 / Implanted: 02/04/2016 by Timothy Smith MD (Quantity not on file) Right INC [id number] / Explanted: 07/04/2021 (Quantity not on file) Ventricle Lead [place] [employer] Df4 Af 59 Cm 0272 - [id number] Leads [place] 04/07/2023 [id number] / Implanted: Qty: 1 on 07/04/2021 at [facility] [employer] [place] [id number] / [id number] Pacemaker-Dino Sci Pacemaker [place] ES MARYO HAI GRIJALVA [id number] / Implanted: 02/04/2016 by Timothy Smith MD (Quantity not on file) [employer] [place] [id number] / Explanted: 07/04/2021 (Quantity not on file) Insurance Payer Benefit Plan / Subscriber ID Effective Phone Address T ype Group Dates MEDICARE MEDICARE FOR HB [id number] 2003-Pres [phone] ATTN CLAIMS Medicare SUPPLEMENT ent [address] [facility] [place] [address] BCBS BCBS SNOQUALMIE [id number] 2016-Prese [phone] [address] [address] PPO BLUE nt [address] [place] [address] (Home) [place] [phone] [address] (Work) Advance Directives For more information, please contact: [phone] Latest Code Status on File Code Status Date Activated Date Inactivated Comments Full Code 02/04/2016 9:52 AM 07/04/2021 11:49 AM Full Code 02/02/2016 9:20 PM 02/04/2016 9:52 AM Full Code 02/01/2012 2:37 PM 02/04/2012 6:16 PM Care Teams Lead Painter Relationship Specialty Start Date End Date Graham Licona MD PCP - General Family Medicine 06/30/21 [facility] [address] [place] [address] Timothy Smith MD Assigned Heart and Vascular 07/23/20 [address] Provider [place] [id number]
--- OUTSIDE RECORDS SUMMARY | 2022-06-22 08:51 | XMS_ITS | Encounter Summary ---
:1940 Author Organization [place] Address [address] [place] [address] Care Team Providers Name Role Phone Timothy Smith MD Unavailable Graham Licona MD Primary Care Provider Reason for Referral Consultation (Routine: Next available opening) - Pending Review Specialty Diagnoses / Procedures Referred By Contact Refer red To Contact Cardiovascular Disease Diagnoses Paroxysmal ventricular tachycardia Timothy Smith MD [address] [place] [address] Referral ID Status Reason Start Date Expiration Date Visits V isits Requested Authorized [id number] Pending 02/08/2022 02/08/2023 1 1 Review iagnostic Imaging XR (Routine) - Pending Review Specialty Diagnoses / Procedures Referred By Contact Refer red To Contact Diagnoses Paroxysmal ventricular tachycardia Timothy Smith MD Procedures XR Chest [address] [place] [address] Referral ID Status Reason Start Date Expiration Date Visits V isits Requested Authorized [id number] Pending 02/08/2022 02/08/2023 1 1 Review Reason for Visit Reason Comments Annual Visit Annual f/up (Routine) - Closed Specialty Diagnoses / Procedures Referred By Contact Refer red To Contact Diagnoses Sustained VT (ventricular tachycardia) Timothy Smith MD [address] [place] [address] Referral ID Status Reason Start Date Expiration Date Visits Requ ested Visits Authorized [id number] Closed 03/23/2021 03/23/2022 1 1 Encounter Details Date Type Department Care Team Description 02/08/2022 Office Visit [facility] Timothy Smith MD Persistent atrial fibrillation (H) (Prim arnie Dx); [facility] [address] Paroxy smal ventricular tachycardia (H) [facility] [address] [place], [place] [address] [address] [place], [place] (Work) [address] Social History Tobacco Use Types Packs/Day Years [...] have Coronavirus/COVID-19? documented as of this encounter Last Filed Vital Signs Vital Sign Reading Time Taken Comments Blood Pressure 110/70 02/08/2022 3:14 PM CDT Pulse 75 02/08/2022 3:14 PM CDT Temperature - - Respiratory Rate - - Oxygen Saturation 95% 02/08/2022 3:14 PM CDT Inhaled Oxygen Concentration - - Weight 124.5 kg (274 lb 8 oz) 02/08/2022 3:14 PM CDT Height 174 cm (5' 8.5) 02/08/2022 3:14 PM CDT Body Mass Index 41.13 02/08/2022 3:14 PM CDT documented in this encounter Progress Notes Timothy Smith MD - 02/08/2022 3:47 PM CDT Service Date: 02/08/2022 HISTORY OF PRESENT ILLNESS: I saw Mr. Villa for follow-up of atrial fibrillation and ventricular tachycardia. He is an 81-year-old white male, who initially received a dual-chamber pacemaker for sinus node dysfunction. He subsequently developed persistent atrial fibrillation and was on rate control and anticoagulation therapy. Last year, he was found to have recurrent VT and the pacemaker system was upgraded to a single-chamber ICD in 07/2021. Recently, the patient had recurrent sustained VT with failed ATP for some episodes. He ended up with 6 ICD shocks. That happened over the last several weeks.On 01/30/2022, the patient was started on amiodarone 200 mg p.o. daily. At the present time, he feels well with no palpitation, shortness of breath or chest pain. The patient is known to have a normal LV ejection fraction. He has type 2 diabetes, sleep apnea, hypertension, coronary artery disease with previous CABG. The patient is scheduled to have a hip replacement in the next few weeks. PHYSICAL EXAMINATION: VITAL SIGNS: Today, the blood pressure was 110/70, heart rate 75 beats per minute, body weight 274 pounds. He came to the clinic with a walker. HEENT: The eyes and ENT were unremarkable. LUNGS: Clear. CARDIAC: Rhythm was regular and heart sounds were normal without murmur. ABDOMEN: Severe obesity. EXTREMITIES: There was chronic bilateral leg edema. EKG showed accelerated junctional rhythm with right bundle branch block. ASSESSMENT AND RECOMMENDATIONS: Mr. Villa has received multiple ICD shocks from recurrent VT. He appears to be doing well on amiodarone for now. I agree for him to continue amiodarone therapy indefinitely. He has chronic renal insufficiency, which makes him not an ideal candidate for sotalol. The patient may need to withhold Eliquis for hip replacement. He is asked to continue amiodarone without interruption for the surgery. I ordered a 6-month amiodarone lab panel. He will come back for follow-up in 6 months. cc: Juan José Licona MD [facility] [address] [place] [address] Timothy Smith MD MT: angela Name: RADHA VILLA Account: [id number] : 1940 Service Date: 02/08/2022 Document: [id number] Timothy Smith MD - 02/08/2022 3:15 PM CDT HPI and Plan: See dictation Orders Placed This Encounter Procedures ??? XR Chest 2 Views ??? Hepatic panel ??? Basic metabolic panel ??? TSH ??? Follow-Up with Cardiology EP ??? EKG 12-lead complete w/read - Clinics (performed today) ??? EKG 12-lead complete w/read (Future)- to be scheduled ??? Pulmonary function test No orders of the defined types were placed in this encounter. There are no discontinued medications. Encounter Diagnoses Name Primary? Persistent atrial fibrillation (H) Yes ??? Paroxysmal ventricular tachycardia (H) CURRENT MEDICATIONS: Current Outpatient Medications Medication Sig Dispense Refill ??? ACYCLOVIR 400 MG OR TABS 1 TABLET 3 TIMES DAILY-as need for Cold sores 30 6 ??? amiodarone (PACERONE) 200 MG tablet Take 1 tablet (200 mg) by mouth daily 90 tablet 3 ??? apixaban ANTICOAGULANT (ELIQUIS) 5 MG tablet Take 1 tablet (5 mg) by mouth 2 times daily 60 tablet 3 ??? atorvastatin (LIPITOR) 20 MG tablet Take 20 mg by mouth daily ??? biotin 1000 MCG TABS tablet Take 1,000 mcg by mouth daily ??? fenofibrate 160 MG tablet Take 160 mg by mouth daily. ??? furosemide (LASIX) 40 MG tablet Take 40 mg by mouth daily ??? glimepiride (AMARYL) 2 MG tablet Take 2 mg by mouth 2 times daily ??? loratadine (CLARITIN) 10 MG tablet Take 10 mg by mouth daily ??? metoprolol succinate ER (TOPROL-XL) 50 MG 24 hr tablet Take 1 tablet (50 mg) by mouth daily 90 tablet 3 ??? nitroGLYcerin (NITROSTAT) 0.[address] 1 tablet (0.4 mg) under the tongue every 5 minutes as needed for chest pain 100 tablet 3 ??? omeprazole (PRILOSEC) [address] capsule Take 20 mg by mouth daily ??? tamsulosin (FLOMAX) 0.4 MG capsule Take 0.4 mg by mouth every evening ??? metFORMIN (GLUCOPHAGE) 500 MG tablet Take 2 tablets (1,000 mg) by mouth 2 times daily (with meals) (Patient not taking: Reported on 02/08/2022) ALLERGIES Allergies Allergen Reactions ??? Pravastatin Rash ??? Adhesive Tape Rash PAST MEDICAL HISTORY: Past Medical History: Diagnosis Date ??? Arthritis ??? Atrial flutter (H) sp ablation 02/27/2013 ??? Coronary artery disease sp CABG ??? Hypertension ??? Melanoma (H) right eye ??? Mumps ??? Persistent atrial fibrillation (H) ??? Sinus node dysfunction (H) with recurrent near syncope, PM 02/03/2016 ??? Sleep apnea ??? Sustained VT (ventricular tachycardia) (H) 01/2021 ??? Type II diabetes mellitus (H) PAST SURGICAL HISTORY: Past Surgical History: Procedure Laterality Date ??? CATHETER, ABLATION 01/2013 Atrial flutter ??? CHOLECYSTECTOMY ??? EP ICD N/A 07/04/2021 Procedure: Implantable Cardioverter-Defibrillator (ICD); Surgeon: Chris De Leon MD; Location: HEART CARDIAC SENIOR TREASURY ANALYST ??? EP PACEMAKER 02/04/2016 SSS ??? HC LEFT HEART CATHETERIZATION 01/2012 see report ??? HERNIA REPAIR ??? ORTHOPEDIC SURGERY ??? rotator cuff ??? TESTICLE SURGERY ??? VASECTOMY ??? ZZC CABG, ARTERY-VEIN, FOUR 1986 FAMILY HISTORY: Family History Problem Relation Age of Onset ??? Heart Disease Father ??? Obesity Paternal Grandmother ??? Obesity Daughter ??? Obesity Son SOCIAL HISTORY: Social History Socioeconomic History ??? Marital status: Spouse name: None ??? Number of children: None ??? Years of education: None ??? Highest education level: None Tobacco Use ??? Smoking status: Never Smoker ??? Smokeless tobacco: Never Used Substance and Sexual Activity ??? Alcohol use: No ??? Drug use: No Other Topics Concern ??? Parent/sibling w/ CABG, MD or angioplasty before 65F 55M? No ??? Caffeine Concern Yes Comment: 2 cups coffe ??? Sleep Concern No ??? Stress Concern No ??? Special Diet No ??? Exercise No Review of Systems: Skin: Negative Eyes: Positive for glasses ENT: Negative Respiratory: Positive for sleep apnea;CPAP Cardiovascular: edema;Positive for Gastroenterology: Negative Genitourinary: Negative Musculoskeletal: Negative Neurologic: Negative Psychiatric: Negative Heme/Lymph/Imm: Negative Endocrine: Positive for diabetes Physical Exam: Vitals: BP 110/70 (BP Location: Right arm, Patient Position: Sitting, Cuff Size: Adult Large) Pulse 75 Ht 1.74 m (5' 8.5) Wt 124.5 kg (274 lb 8 oz) SpO2 95% BMI 41.13 kg/m?? Constitutional: cooperative, alert and oriented, well developed, well nourished, in no acute distress morbidly obese uses a walker Skin: warm and dry to the touch pacemaker incision in the left infraclavicular area was well-healed Head: normocephalic, no masses or lesions Eyes: pupils equal and round wear eye glasses Lymph: ENT: no pallor or cyanosis Neck: JVP normal JVP elevated JVP difficult to assess due to body habitus however appears to be elevated slightly above chin level Respiratory: clear to auscultation Bibasilar crackles Cardiac: no murmurs, gallops or rubs detected irregularly irregular rhythm pulses full and equal pulses below the femoral arteries are diminished right radial artery;2+ left radial artery;2+ GI: abdomen soft obese distended and firm Extremities and Muscular Skeletal: no deformities, clubbing, cyanosis, erythema observed 1+ compression stockings Neurological: no gross motor deficits Psych: Alert and Oriented x 3 CC Timothy Smith MD [address] [place] [id number] documented in this encounter Plan of Treatment Upcoming Encounters Date Type Specialty Care Team Description 06/26/2022 Ancillary Procedure Cardiology Seng Canchola MD [address] [place] [id number] (Fiorella olvera) 08/16/2022 Ancillary Procedure Cardiology Timothy Smith MD [address] [place] [id number] (Fiorella olvera) 08/16/2022 Office Visit Cardiology Timothy Smith MD [address] [place] [id number] (Wo rk) Scheduled Orders Name Type Priority Associated Diagnoses Order S chedule Hepatic panel Lab Routine Paroxysmal ventricular Expe cted: 08/07/2022 tachycardia (H) (Approximate ), Expires: 2022 Basic metabolic panel Lab Routine Paroxysmal ventricu lar Expected: 08/07/2022 tachycardia (H) (Approximate ), Expires: 2022 Pulmonary function PFT Routine Paroxysmal ventricular Expected: 08/07/2022 test tachycardia (H) (Approximate ), Expires: 2022 XR Chest 2 Views Imaging Routine Paroxysmal ventricular E xpected: 08/07/2022 tachycardia (H) (Approximate ), Expires: 2022 TSH Lab Routine Persistent atrial Expected: 02/08/2022 fibrillation (H) (Approximat e), Expires: 2021 EKG 12-lead complete EKG Routine Paroxysmal ventricul ar Expected: 08/11/2022 w/read (Future)- to be tachycardia (H) (A pproximate), scheduled Expires: 2022 Scheduled Referrals Name Type Priority Associated Diagnoses Order S chedule Follow-Up with Referral Routine: Next Paroxysmal Expected: Cardiology EP available opening ventricular 2 tachycardia (H) (Approximate ), Expires: 02/08/2023 documented as of this encounter Procedures Procedure Name Priority Date/Time Associated Diagnosis Comme nts EKG 12-LEAD Routine 02/09/2022 12:49 Persistent atrial Result s for this COMPLETE W/READ - PM CDT fibrillation (H) proced ure are in CLINICS the results section. documented in this encounter Results EKG 12-lead complete w/read - Clinics (performed today) (02/09/2022 12:49 PM CDT) Narrative This result has an attachment that is no t available. Timothy Smith MD ECG ORDERABLES documented in this encounter Visit Diagnoses Diagnosis Persistent atrial fibrillation (H) - [facility] Atrial fibrillation Paroxysmal ventricular tachycardia documented in this encounter Care Teams Medical Secretary Receptionist Relationship Specialty Start Date End Date Graham Licona MD PCP - General Family Medicine 06/30/21 [facility] [address] [place] [address] Timothy Smith MD Assigned Heart and Vascular 07/23/20 [address] Provider [place] [id number] documented as of this encounter
--- OUTSIDE RECORDS SUMMARY | 2022-06-22 08:51 | XMS_ITS | Encounter Summary ---
:1940 Author Organization [place] Address [address] [place] [address] Care Team Providers Name Role Phone Timothy Smith MD Unavailable Graham Licona MD Primary Care Provider Encounter Details Date Type Department Care Team Description 02/10/2022 Orders Only [facility] Timothy Smith MD Paroxysmal ventricular [facility] [address] tachycardia (H) [address] (Primary Dx) [facility] [address] [place] [address] [place] [phone] Social History Tobacco Use Types Packs/Day Years [...] [address] [place] [id number] (Wo rk) 08/16/2022 Ancillary Procedure Cardiology Timothy Smith MD [address] [place] [id number] (Wo rk) 08/16/2022 Office Visit Cardiology Timothy Smith MD [address] [place] [id number] (Wo rk) Scheduled Orders Name Type Priority Associated Diagnoses Order S chedule General PFT Lab (Please PFT Routine Paroxysmal ventri cular Expected: 08/13/2022 always keep checked) tachycardia (H) ([place] roximate), Expires: 2022 Pulmonary Function Test PFT Routine Paroxysmal ventri cular Expected: 02/24/2022 tachycardia (H) (Approximate ), Expires: 2022 documented as of this encounter Visit Diagnoses Diagnosis Paroxysmal ventricular tachycardia - Ria jing documented in this encounter Care Teams Ivory Polisher Relationship Specialty Start Date End Date Graham Licona MD PCP - General Family Medicine 06/30/21 [facility] [address] [facility] [place] [address] Timothy Smith MD Assigned Heart and Vascular 07/23/20 [address] Provider [place] [id number] documented as of this encounter
--- OUTSIDE RECORDS SUMMARY | 2022-06-22 08:51 | XMS_ITS | Encounter Summary ---
:1940 Author Organization [place] Address [address] [place] [address] Care Team Providers Name Role Phone Timothy Smith MD Unavailable Graham Licona MD Primary Care Provider Encounter Details Date Type Department Care Team Description 01/30/2022 Telephone [facility] Sandrine Whitman bryn [facility] [address] [facility] [address] [place] [address] Social History Tobacco Use Types Packs/Day Years Used Date Never Smoker Smokeless Tobacco: Never Used Alcohol Use Standard Drinks/Week Comments No 0 (1 standard drink = 0.6 oz pure alcoho l) Sex Assigned at Date Recorded Not on file documented as of this encounter Miscellaneous Notes Telephone Encounter - Aliza Whitman - 01/30/2022 1:08 PM CDT Called patient with Dr Smith's recommendations to start Amidoarone 200mg daily. Patient voiced understanding. Prescription sent to pharmacy of choice. Asked that patient call device clinic with any questions/concerns and will see Dr Smith in clinic on 02/08/22. Telephone Encounter - Timothy Smith MD - 01/30/2022 12:26 PM CDT Recommend amiodarone 200 mg daily. Telephone Encounter - Aliza Whitman - 01/30/2022 9:00 AM CDT Images from the original note were not included. Alert received from patients [employer] single chamber ICD for ATP therapy as well as shock therapy delivered to convert arrhythmia. Patent has received ATPx26 and 6 shocks were delivered. Episodes of ATP occurred on 01/27/22 at 0522,0525,0527, 0531, 0532 0930, 1112, 1121, 1124, 1218, 1220 and 01/28/22 at 0610, 0611 and 0612. Shock episode occurred on 01/27/22 after ATP x6 was unsuccessful, 6-41 J shocks were delivered. EGM shows: VT(190bpm)> ATP delivered that was unsuccessful in breaking the VT, with a spontaneous recovery to VS with rates of 70-90bpm for 5sec. VT(200bpm)> 41J shock the converted to a VS rhythm(60bpm) for 4.5sec. VT(190bpm)> 41J shock that again converted patient into a VS rhythm(70bpm) for 5sec. VT(170-180bpm)>41 J shock that converted patient into VS rhythm (90bpm) that lasted 12sec. VT (180bpm)>41J shock that converted patient into VS rhythm (70-90bpm) for 7sec. VT (180 bpm)> 41J shock delivered and converted to VS rhythm (60-80bpm) for 4.5sec. VT (180bpm)> 41 J shock that converted patient in to VS rhythm (60bpm) for 16.5sec and then back to VT with rates of 180bpm. ATP episode EGMs show ATP appropriately delivered for VT. Patient also has 32 NSVT episodes in the logbook since 01/26/22 with 4 EGMs available. EGMs show 10- 22with V rates of 180-190bpm. Patient presented to [facility] on 01/27/22 after receiving shocks from ICD.Patient stated he had an EKG performed and lab work and was sent home. Patient stated he is feeling well and denies any symptoms. Patient stated that at time of episodes he did not pass out but did feel somewhat faint. Denies any missed medication. Stated was restarted on Eliquis on Sunday after being off since due toa stomach ulcer. Per Saadia Montenegro's note on 06/30/21: Poor candidate for increasing BB given borderline BPs seen in past. 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 On Metoprolol 50mg daily. Patient has had previous episodes that have required ATP, however has not received shocks from device. Will route to Dr Smith. Patient is also scheduled to see Dr Smith on 02/08/22. EGM with shock episodes: ATP Episode from 01/28/22 at 0612: documented in this encounter Plan of Treatment Upcoming Encounters Date Type Specialty Care Team Description 06/26/2022 Ancillary Procedure Cardiology Seng Canchola MD [address] [place] [address] (Wo rk) 08/16/2022 Ancillary Procedure Cardiology Timothy Smith MD [address] [place] [id number] (Wo rk) 08/16/2022 Office Visit Cardiology Timothy Smith MD [address] [place] [address] (Wo rk) documented as of this encounter Visit Diagnoses Diagnosis Sustained VT (ventricular tachycardia) - Primary Paroxysmal ventricular tachycardia documented in this encounter Care Teams Internal Control Consultant Relationship Specialty Start Date End Date Graham Licona MD PCP - General Family Medicine 06/30/21 [facility] [address] [place] [address] Timothy Smith MD Assigned Heart and Vascular 07/23/[address] Provider [place] [id number] documented as of this encounter
--- OUTSIDE RECORDS SUMMARY | 2022-06-22 08:51 | XMS_ITS | Encounter Summary ---
:1940 Author Organization [place] Address [address] [place] [address] Care Team Providers Name Role Phone Timothy Smith MD Unavailable Graham Licona MD Primary Care Provider Reason for Referral CV Testing (Routine) - Pending Review Specialty Diagnoses / Procedures Referred By Contact Refer red To Contact Diagnoses Sustained VT (ventricular tachycardia) Paroxysmal ventricular tachycardia Cardiac pacemaker in situ Timothy Smith MD Procedures Cardiac Device Check - Remote (Standing ORD 4 count) [address] [place] [address] Referral ID Status Reason Start Date Expiration Date Visits V isits Requested Authorized [id number] Pending 05/04/2022 05/04/2023 100 100 Review V Testing (Routine) - Pending Review Specialty Diagnoses / Procedures Referred By Contact Refer red To Contact Diagnoses Sustained VT (ventricular tachycardia) Paroxysmal ventricular tachycardia Cardiac pacemaker in situ Timothy Smith MD Procedures Cardiac Device Check - In Clinic (Standing ORD 2 count) [address] [place] [address] Referral ID Status Reason Start Date Expiration Date Visits V isits Requested Authorized [id number] Pending 05/04/2022 05/04/2023 10 10 Review Reason for Visit Reason Onset Date Comments Orders 05/03/2022 Cardiac device check in-clinic/ Extend order Encounter Details Date Type Department Care Team Description 05/03/2022 Telephone [facility] Zarina Smith MD Orders (Cardiac device Health Heart [address] check in-c linic/ Extend [facility]-[place] [address] order ) [address] [place] [address] [address] [place], [place] (Work) [address] [phone] Social History Tobacco Use Types Packs/Day Years [...] this encounter Miscellaneous Notes Telephone Encounter - Adriana El RN - 05/04/2022 4:05 PM CDT Faxed orders to [place] [facility] Telephone Encounter - Charito Huizar RN - 05/04/2022 10:06 AM CDT Orders entered for remote and in clinic device appts. Appt made for pt in [place] for annual device check with Dr. Smith appt to follow. LM with date, time and place of appt and requested pt to call back to confirm. Orders previously entered for Amiodarone 6m follow up orders by Dr. Smith. Will fax to ord er to [place] [facility] at . [facility] [place] . Telephone Encounter - Maritza Metzger - 05/03/2022 12:47 PM CDT [facility] Phone Message May a detailed message be left on voicemail: no Reason for Call: Other: Guillermo called to schedule an appointment with Dr. SMITH on 08/16/2022. He will need a cardiac device check in-clinic at the time of that appointment, however, his current order expires on 07/05/2022. Please extend the order and add device check prior to this appointment. Also, Guillermo will require a PFT and he would prefer to schedule this in [place] as well. Please send an order to [facility]. Advising them to reach out to the Pt for scheduling. Action Taken: Other: [place] [facility] Travel Screening: Not Applicable documented in this encounter Plan of Treatment Upcoming Encounters Date Type Specialty Care Team Description 06/26/2022 Ancillary Procedure Cardiology Seng Canchola MD [address] [place], [place] [phone] (Wo rk) 08/16/2022 Ancillary Procedure Cardiology Timothy Smith MD [address] [place], [place] [address] (Wo rk) 08/16/2022 Office Visit Cardiology Timothy Smith MD [address] [place] [id number] (Wo rk) Scheduled Orders Name Type Priority Associated Diagnoses Order S chedule Cardiac Device Implantable Cardiac Routine Sustained VT 10 Occ urrences Check - In Device (ventricular starting 2021 Clinic (Standing tachycardia) (H ) until 05/04/2033 ORD 2 count) Paroxysmal ventricular tachycardia (H) Cardiac pacemaker in situ Cardiac Device Implantable Cardiac Routine Sustained VT 100 Oc currences Check - Remote Device (ventricular starting 12/2021 (Standing ORD 4 tachycardia) (H) until 05/04/2033 count) Paroxysmal ventricular tachycardia (H) Cardiac pacemaker in situ documented as of this encounter Visit Diagnoses Diagnosis Sustained VT (ventricular tachycardia) - Primary Paroxysmal ventricular tachycardia Paroxysmal ventricular tachycardia Cardiac pacemaker in situ documented in this encounter Care Teams Assistant Program Manager Relationship Specialty Start Date End Date Graham Licona MD PCP - General Family Medicine 06/30/21 [facility] [address] [place] [address] Timothy Smith MD Assigned Heart and Vascular 07/23/20 [address] Provider [place] [id number] documented as of this encounter
--- OUTSIDE RECORDS SUMMARY | 2022-06-22 08:51 | XMS_ITS | Clinical Summary ---
:1940 Author Organization [facility] [place] [address] Care Team Providers Name Role Phone Unavailable Primary Care Provider Unavailable Allergies No known active allergies Medications Medication Sig Dispensed Refills Start Date End Date Status blood-glucose meter Dispense glucose 1 Device 0 06/13/2013 Active meter, test strips and lancets covered by the patient insurance. Test 3 times per day. lancets Dispense lancets 200 Each 1 11/02/2014 Ac tive covered by pt ins. 250.00 NIDDM type II - Test 2 times/day. Reason: High A1C tests [address] 0.4 mg 0 Act mike (NITROSTAT) 0.4 mg under the tongue sublingual tablet every 5 minutes if needed for Chest Pain. biotin 5,000 mcg TbDi Take 5,000 mcg 0 12/18/2018 Active by mouth once daily. tamsulosin (FLOMAX) 0.4 Take 0.4 mg by 0 07/11/2019 Active mg capsule mouth once daily after a meal. acyclovir (ZOVIRAX) 400 TAKE ONE TABLET 90 Tablet 0 05/10/2021 Active mg tabletIndications: BY MOUTH THREE Recurrent cold sores TIMES A DAY NEEDED FOR COLD SORES omeprazole (PRILOSEC) Take 20 mg by 0 06/06/2021 Active 20 mg Delayed-Release mouth 2 times capsule daily before meals. metFORMIN (GLUCOPHAGE) Take 2 Tablets 360 Tablet 3 06/20/2021 Active 500 mg (1,000 mg) by tabletIndications: mouth 2 times Controlled type 2 daily with diabetes mellitus with meals. complication, without long-term current use of insulin (HC) furosemide (LASIX) 40 Take 1 Tablet 90 Tablet 2 06/20/2021 Active mg tabletIndications: (40 mg) by mouth Bilateral lower every morning. extremity edema glimepiride (AMARYL) 2 TAKE 1 TABLET 180 Tablet 3 06/20/2021 Active mg tabletIndications: TWICE A DAY Controlled type 2 diabetes mellitus with complication, without long-term current use of insulin (HC) fenofibrate 160 mg TAKE ONE TABLET 90 Tablet 0 11/08/2021 Active tabletIndications: BY MOUTH EVERY Hyperlipidemia, DAY WITH A MEAL unspecified hyperlipidemia type blood sugar diagnostic Dispense item 200 Each 3 12/30/2021 Active (Contour Next Test covered by pt Strips) ins. 2 x daily stripIndications: Dispense item Controlled type 2 covered by pt diabetes mellitus with ins. complication, without long-term current use of insulin (HC) amiodarone (CORDARONE) Take 200 mg by 0 Active 200 mg tablet mouth once daily. metOLazone (ZAROXOLYN) Take 2.5-5 mg by 0 Active 2.5 mg tablet mouth once daily. Alternate 2.5 mg and 5 mg every other day apixaban (ELIQUIS) 2.5 Take 1 Tablet 60 Tablet 2 02/26/2022 Active mg tabletIndications: (2.5 mg) by prevent thromboembolism mouth 2 times in chronic atrial daily. fibrillation oxyCODONE (ROXICODONE) Take 0.5 Tablets 10 Tablet 0 02/26/2022 Active 5 mg immediate release (2.5 mg) by tabletIndications: mouth every 6 Lumbar radicular pain hours if needed for Pain. metoprolol succinate Take 0.5 Tablets 30 Tablet 2 03/02/2022 Active (TOPROL XL) 25 mg (12.5 mg) by Sustained-Release mouth once tabletIndications: daily. 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 Stage 3a chronic kidney disease 06/20/2021 Sleep apnea, unspecified 09/12/2020 Heart failure 11/03/2019 Cataract of right eye 09/18/2019 Calculus of ureter 10/09/2018 Type 2 diabetes mellitus without complication, without long-term current 09/02/2018 use of insulin Abnormal kidney function 05/06/2018 Morbid obesity with BMI of 45.0-49.9, adult 12/20/2017 Chronic atrial fibrillation 03/07/2017 Malignant melanoma (HC) - ocular 10/12/2016 Coronary artery disease involving [place] coronary [place] of [place] heart 02/11/2016 without angina pectoris Lumbar foraminal stenosis 08/31/2015 Lumbar radicular pain 08/31/2015 Anticoagulation monitoring, INR range 2-3 06/26/2012 Atrial flutter 02/05/2012 Other and unspecified hyperlipidemia 10/18/2011 Low back pain 02/15/2010 HTN (hypertension) 02/10/2010 Resolved Problems Problem Noted Date Resolved Date Controlled type 2 diabetes mellitus with complication, 10/1106/20/2021 without long-term current use of insulin Controlled type 2 diabetes mellitus with complication, 01/1309/02/2018 without long-term current use of insulin Encounters Date Type Specialty Care Team Description 04/16/2022 Refill Slava Hernandez PA Refil l Request (Atorvastatin) from Last 3 Months Immunizations Name Administration Dates Next Due COVID-19 vaccine ([employer] 12/04/2020, 11/13/2020 30mcg/0.3mL) PF, MDV Influenza Virus, Unspecified 08/06/2004, 07/23/1997, 996, 07/21/1994, 08/05/1993, 08/11/1992 Influenza, High-dose Inactivated 07/03/2019, 07/16/2018, 03/2016, 07/16/2015, 08/05/2014 Influenza, IIV3 (Age 6-35 mos) 08/21/2013, 07/28/2011 Influenza, IIV3 (Age >=3 years) 07/28/2011, 07/26/2010, 06/01, 07/27/2008, 07/12/2007, 07/19/2006, 07/07/2005, 08/06/2004, 08/05/2003, 08/14/2002, 08/07/2001, 08/02/2000 Influenza, Inactivated IIV3 (Age 65+ 06/24/2020, 08/15/2019, 07/17/2017 Years) Preserv Free Pneumococcal Poly,23-Valent 05/29/2011, 07/07/2005, 10/10/19 03 (Pneumovax) Pneumococcal conj 13-Valent (Prevnar 10/18/2015 13) Td (Age >=7 Years) 09/29/2002, 03/02/1992 Td, Preservative Free (age >= 7 06/07/2011 Years) Zoster (Zostavax-ZVL, live) 07/01/2014 Family History Medical History Relation Name Comments Heart Disease Brother 1 Gene Heart Disease Brother 2 Brian Good Health Daughter x 2 Heart Disease Father Diabetes Maternal Grandmother Diabetes Paternal Grandmother No Known Problems Sister Good Health Son Relation Name Status Comments Brother 1 Gene Alive Brother 2 Brian Alive Daughter x 2 Alive Father Maternal Grandfather Maternal Grandmother Mother Paternal Grandfather Paternal Grandmother Sister Alive Son Alive Social History Tobacco Use Types Packs/Day Years Used Date Never Smoker Smokeless Tobacco: Never Used Tobacco Cessation: Counseling Given: Yes Alcohol Use Standard Drinks/Week Comments No 0 (1 standard drink = 0.6 oz pure alcoho l) Sex Assigned at Date Recorded Not on file Obstetrics History Last Filed Vital Signs Vital Sign Reading Time Taken Comments Blood Pressure 134/58 03/02/2022 8:39 AM CDT Pulse 83 03/02/2022 8:39 AM CDT Temperature 36.3 ??C (97.3 ??F) 03/02/2022 8:39 AM CDT Respiratory Rate 18 03/02/2022 8:39 AM CDT Oxygen Saturation 92% 03/02/2022 8:39 AM CDT Inhaled Oxygen Concentration - - Weight 126.1 kg (278 lb) 03/01/2022 10:00 AM CDT Height 175.3 cm (5' 9) 02/21/2022 4:40 PM CDT Body Mass Index 41.05 02/21/2022 4:40 PM CDT Plan of Treatment Health Maintenance Due Date Last Done Comments Tdap 1951 Zoster (shingles) series for age 1108/26/2014 07/01/2014 50+ (2 of 3) Tetanus booster 06/07/2021 06/07/2011, 06/07/2011, 09/29/2002, Additional history exists Influenza for age 65+ 06/01/2022 06/24/2020, 08/15/2019, 07/03/2019, Additional history exists BMI (ht and wt on same day) for 06/20/2022 06/20/2021, 09/01, age 18+ 06/24/2020, Additional history exists Medicare Wellness for age 65+ 06/20/2022 06/20/2021, 2019 Depression screening for age 12+ 06/21/2022 06/21/2021, , 11/03/2019, Additional history exists Pneumococcal series for age 65+ Completed 10/18/2015, 05/02, 07/07/2005, Additional history exists COVID-19 vaccine series Completed 01/19/2022, 07/14/2021, 12/04/2020, Additional history exists Results Not on filefrom Last 3 Months Insurance Payer Benefit Plan / Subscriber ID Effective Dates Phone Addre ss Type Group MEDICARE PART B MEDICARE PART B [id number] 2003-Prese ATTN: CLAIMS - HB USE ONLY HB ONLY nt [address] [place] [address] MEDICARE PART A MEDICARE PART A [id number] 2003-Prese ATTN: CLAIMS - HB USE ONLY HB ONLY nt [address] [place] [address] BLUE CROSS BLUE CROSS [id number] 2016-Presen [address] [address] [place], [place] ONLY [id number] BLUE CROSS MR BLUE CROSS [id number] 2016-Presen [address] [address] [place], [place] ONLY [id number] (Home) [place] [address] [facility] Other 10/01/2000 [address] [employer] [place] (Work) [address] [place] [address] Advance Directives Latest Code Status on File Code Status Date Activated Date Inactivated Comments Full Code 02/22/2022 2:53 PM 03/02/2022 1:31 PM Code Status Discussion: Reviewed Preferences Full Code 02/21/2022 4:37 PM 02/22/2022 2:53 PM Code Status Discussion: Unable to Assess Preferences, Provid er to review later
--- OUTSIDE RECORDS SUMMARY | 2022-06-22 08:51 | XMS_ITS | Encounter Summary ---
:1940 Author Organization [facility] Address [address] [place] [address] Care Team Providers Name Role Phone Timothy Smith MD Unavailable Graham Licona MD Primary Care Provider Encounter Details Date Type Department Care Team Description 02/08/2022 Travel Social History Tobacco Use Types Packs/Day [...] 06/26/2022 Ancillary Procedure Cardiology Seng Canchola MD [address] [place] [id number] (Wo rk) 08/16/2022 Ancillary Procedure Cardiology Timothy Smith MD [address] [place] [id number] (Wo rk) 08/16/2022 Office Visit Cardiology Timothy Smith MD [address] [place] [id number] (Wo rk) documented as of this encounter Visit Diagnoses Not on filedocumented in this encounter Care Teams Cutting Pressman Relationship Specialty Start Date End Date Graham Licona MD PCP - General Family Medicine 06/30/21 [facility] [address] [place] [address] Timothy Smith MD Assigned Heart and Vascular 07/23/20 [address] [facility] [address] Provider [place] [id number] documented as of this encounter
--- OUTSIDE RECORDS SUMMARY | 2022-06-22 08:51 | XMS_ITS | Encounter Summary ---
:1940 Author Organization [facility] Address [address] [place] [address] Care Team Providers Name Role Phone Timothy Smith MD Unavailable Graham Licona MD Primary Care Provider Reason for Visit Reason Onset Date Comments Implantable Devices 09/12/2021 HeartLogic alert Encounter Details Date Type Department Care Team Description 09/12/2021 Telephone [facility] Sintia Muhammad, Impl antable Devices [facility] RN (HeartLog ic alert) Heart Care [address] [place] [id number] Social History Tobacco Use Types Packs/Day Years Used Date Never Smoker Smokeless Tobacco: Never Used Alcohol Use Standard Drinks/Week Comments No 0 (1 standard drink = 0.6 oz pure alcoho l) Sex Assigned at Date Recorded Not on file COVID-19 Exposure Response Date Recorded In the last month, have you been in contact with No / Unsure 08/24/2021 10:48 AM [facility] someone who was confirmed or suspected to have Coronavirus / COVID-19? documented as of this encounter Miscellaneous Notes Telephone Encounter - Sintia Muhammad, RN - 10/03/2021 8:53 AM CST Images from the original note were not included. Remote alert received for HeartLogic at current index of 18, slightly down from last week's index of19. Contributing trends are S3 heart sounds and night heart rate. Patient was contacted on 12/13/[address] Smith was instructed to follow- up with his PMD for evaluation and diuretic titration if needed. If that does not work, then CORE clinic was recommended. Called and spoke with Don who stated that he saw his PMD and they adjusted his diuretics. He has lost 12 pounds so far and is feeling much better. He has follow-up with his PMD in 3 weeks to see how everything is going. Will continue to monitor at this time. SIENNA Hatch [facility] Telephone Encounter - Sintia Muhammad RN - 09/14/2021 11:35 AM CST Called and spoke with patient. Don states he is actually feeling much better. He has been watching his sodium intake and he is down 6 pounds since Sunday. Updated patient on Dr. Smith's recommendation to follow-up with his primary care provider to see if anyadjustments are needed on his diuretics. Explained if additional follow-up is needed after seeing his primary care provider, than Dr. Smith would recommend he follow-up with our CORE clinic, or heart failure clinic. Also congratulated patient on improvement in symptoms and recommended he continue to monitor his sodium intake and symptoms. Patient verbalized understanding and appreciation for call. SIENNA Hatch [facility] Telephone Encounter - Timothy Smith MD - 09/13/2021 4:28 PM CST I am not able to manage heart failure with frequent visit. This patient has severe renal insufficiency. The first step may be with his PMD for evaluation and diuretic titration. If that does not work, then CORE clinic is recommended. [facility] Telephone Encounter - Sintia Muhammad RN - 09/12/2021 12:01 PM CST Images from the original note were not included. [place] ICD remote alert received for HeartLogic at current index of 16. Contributing trends are heart sounds (S3 and S3/S1 ratio). Called and spoke with patient who stated over the last couple of months he has had some shortness ofbreath off and on, leg swelling, and weight gain of about 10 pounds over the last couple of months. He stated in the last week there has not been too much that has changed, though his legs have been a little more swollen. He states he does wear compression stockings. He also states that occasionally he will take an extra 20mg of Lasix depending on his symptoms, though he has not done this in the lastweek. Patient instructed to monitor symptoms and notify clinic if he has increased shortness of breath, swelling, weight gain of 2-3 pounds in a day or 3-5 pounds in a week, or has to increase the incline hesleeps at. Patient verbalized understanding and stated he would do so. He was wondering if he shouldtake any extra Lasix. Will route message to Saadia to determine plan and will update patient after shehas reviewed the information. SIENNA Hatch [facility] documented in this encounter Plan of Treatment Upcoming Encounters Date Type Specialty Care Team Description 06/26/2022 Ancillary Procedure Cardiology Seng Canchola MD [address] [address] [place] [id number] (Wo rk) 08/16/2022 Ancillary Procedure Cardiology Timothy Smith MD [address] [place] [id number] (Wo rk) 08/16/2022 Office Visit Cardiology Timothy Smith MD [address] [place] [id number] (Wo rk) documented as of this encounter Visit Diagnoses Not on filedocumented in this encounter Care Teams Payroll Bookkeeper Relationship Specialty Start Date End Date Graham Licona MD PCP - General Family Medicine 06/30/21 [facility] [address] [place] [address] Timothy Smith MD Assigned Heart and Vascular 07/23/20 [address] Provider [place] [id number] documented as of this encounter
--- OUTSIDE RECORDS SUMMARY | 2022-06-22 08:51 | XMS_ITS | Encounter Summary ---
:1940 Author Organization [facility] Address [address] [place] [address] Care Team Providers Name Role Phone Timothy Smith MD Unavailable Graham Licona MD Primary Care Provider Reason for Referral CV Testing (Routine) - Pending Review Specialty Diagnoses / Procedures Referred By Contact Refer red To Contact Diagnoses Cardiac pacemaker in situ Steven Canchola, Procedures Cardiac Device Check - Remote (Standing ORD 4 count) [address] [place] [address] Referral ID Status Reason Start Date Expiration Date Visits V isits Requested Authorized [id number] Pending 03/20/2022 03/20/2023 100 100 Review Reason for Visit CV Testing (Routine) - Pending Review Specialty Diagnoses / Procedures Referred By Contact Refer red To Contact Diagnoses Cardiac pacemaker in situ Steven Canchola, Procedures Cardiac Device Check - Remote [address] [place] [address] Referral ID Status Reason Start Date Expiration Date Visits V isits Requested Authorized [id number] Pending 03/20/2022 03/20/2023 1 1 Review Encounter Details Date Type Department Care Team Description [facility] Jose in situ Heart Care [address] [place] [address] [place] [phone] (Wo rk) [phone] Social History Tobacco Use Types Packs/Day Years [...] [address] [place] [id number] (Wo rk) 08/16/2022 Ancillary Procedure Cardiology Timothy Smith MD [address] [place] [id number] (Wo rk) 08/16/2022 Office Visit Cardiology Timothy Smith MD [address] [place] [id number] (Wo rk) Scheduled Orders Name Type Priority Associated Order Schedule Diagnoses Cardiac Device Implantable Cardiac Routine Cardiac pacemaker 1 00 Occurrences Check - Remote Device in situ starting 03/02 (Standing ORD 4 until 2032 count) documented as of this encounter Procedures Procedure Name Priority Date/Time Associated Comments Diagnosis INTERROGATION DEVICE Routine 03/20/2022 2:18 PM Cardiac pacema ker Results for this EVAL REMOTE ICD UP TO CDT in situ proced ure are in 90 the results section. documented in this encounter Results INTERROGATION DEVICE EVAL REMOTE ICD UP TO 90 (03/20/2022 2:18 PM CDT) Component Value Ref Test Analysis Performed Pathologis t Range Method Time At Signature Date Time [id number] [employer] Interrogation Session Implantable [employer] [employer] Pulse Generator Pulley Mortiser Operator Implantable D432 RESONATE EL [employer] Pulse Generator ICD Model Implantable [id number] [employer] Pulse Generator Serial Number Type Remote [employer] Interrogation Session Clinic Name [place] [employer] Implantable Defibrillator [employer] Pulse Generator Type Implantable [id number] [employer] Pulse Generator Implant Date Implantable Lead [employer] Pulley Mortiser Operator Implantable Lead 0272 [place] [employer] Model 4-Site S Implantable Lead 900908 [employer] Serial Number Implantable Lead [id number] [employer] Implant Date Implantable Lead Bipolar Lead [...] 469 ohm [employer] Impedance Value Lead Channel 0.9 V [employer] Pacing Threshold Amplitude Lead Channel 0.4 ms [employer] Pacing Threshold Pulse Width Battery Date [employer] Time of Measurements Battery Status Beginning of [employer] Service Battery 156 mo [employer] Remaining Longevity Battery 100 % [employer] Remaining Percentage Capacitor Charge Reformation [employer] Type Capacitor Last [id number] [employer] Charge Date Time Capacitor Charge 8.8 s [employer] Time Capacitor Charge Shock [employer] Type Capacitor Last [id number] [employer] Charge Date Time Capacitor Charge 6.8 s [employer] Time Capacitor Charge 41 J [employer] Energy Brandon Statistic [employer]IC Date Time Start Brandon Statistic [employer]IC Date Time End Brandon Statistic 3 % [employer] RV Percent Paced Therapy 6 [employer] Statistic Recent Shocks Delivered Therapy 0 [employer]IC Statistic Recent Shocks Aborted Therapy 26 [employer] Statistic Recent ATP Delivered Therapy [employer] Statistic Recent Date Time Start Therapy [id number] [employer] Statistic Recent Date Time End Therapy 6 [employer] Statistic Total Shocks Delivered Therapy 0 [employer]IC Statistic Total Shocks Aborted Therapy 34 [employer]IC Statistic Total ATP Delivered Therapy [id number] [employer]IC Statistic Total Date Time End Episode 0 [employer]IC Statistic Recent Count Episode Other [employer]TRONIC Statistic Type Category Episode 203 [employer] Statistic Recent Count Episode VT [employer]IC Statistic Type Category Episode NSVT [employer] Statistic Vendor Type Category Episode 0 [employer] Statistic Recent Count Episode VF [employer] Statistic Type Category Episode VF [employer] Statistic Vendor Type Category Episode 14 [employer] Statistic Recent Count Episode VT [employer] Statistic Type Category Episode VT [employer] Statistic Vendor Type Category Episode 0 [employer]IC Statistic Recent Count Episode VT [employer]IC Statistic Type Category Episode VT-1 [employer] Statistic Vendor Type Category Episode [id number] [employer] Statistic Recent Date Time Start Episode [id number] [employer] Statistic Recent Date Time End Episode [id number] [employer] Statistic Recent Date Time Start Episode [id number] [employer] Statistic Recent Date Time End Episode [id number] [employer] Statistic Recent Date Time Start Episode [id number] [employer] Statistic Recent Date Time End Episode [id number] [employer] Statistic Recent Date Time Start Episode [id number] [employer] Statistic Recent Date Time End Episode [id number] [employer] Statistic Recent Date Time Start Episode [id number] [employer] Statistic Recent Date Time End Episode [id number] [employer] Identifier Episode Type Periodic EGM [employer] Category Episode Date [id number] [employer] Time Episode [id number] [employer] Identifier Episode Type Other [employer] Category Episode Date [id number] [employer] Time Anatomical Region Laterality Modality Other Specimen (Source) Anatomical Collection Method Collection Time Re ceived Time Location / / Volume Laterality 03/19/2022 1:07 AM CDT Narrative 03/26/2022 9:18 AM CDT [employer] Resonate(S) ICD Remote Device Check ?? ALLOPATHIC DOCTOR: 3 % ?? Mode: VVIR 50-130 ?? Presenting Rhythm: VS at 50s-70's ?? Heart Rate: Stable with adequate variabi lity ?? Sensing: WNL ?? Pacing Threshold: WNL ?? Impedance: WNL shock: 79 ohms ?? Battery Status: 13y ?? Atrial Arrhythmia: none ?? Ventricular Arrhythmia: 90 episodes of ? ?VT/NSVT logged. Included in these are 14 episodes that included ATP. These have been accounted for. See Epic note from Dr. Smith regarding the episodes on 01/27 and . The rest of the episodes logged were NSVT. EGM's show bu rsts of NSVT in the 150's to 170's lasting 3-23s. ?? ATP: see episodes already reviewed. Sinc e last scheduled remote on 11/23/21, pt has had 96 ATP ?? Shocks: 4 shocks given since last schedu led remote on 11/23/21. See documentation on 01/27-. These have been accounted for. Pt seen in ER ?? Care Plan: follow up with next remote ch suma on ??06/26/22. Pt updated with results and follow up plan. pt reports divya lopez was put on 12.5mg of Toprolol XL vs 50mg. ??pt reports that his pills are 50 mg and wondering how to break them into 4s. per 's note from [facility], pt is to be on 12.5mg. Unable to talk with that physician or his nurse . pt is currently taking 25mg of Toprolol XL. ??per Dr. Tomlin's note [facility]: CHANGE how you take these medicines Instructions metoprolol succinate 25 mg Sustained-Rel ease tablet For diagnoses: Typical atrial flutter (H C) What changed: medication strength how much to take Commonly known as: TOPROL XL Take 0.5 Tablets (12.5 mg) by mouth once daily. routed note to Dr. Smith as pt is wrong do se of med and unable to reach ordering provider at [facility]. SH/RN I have reviewed and interpreted the agustín ce interrogation, settings, programming and nurse's summary. The dev ice is functioning within normal device parameters. I agree with the curr ent findings, assessment and plan. Steven Canchola MD [facility] documented in this encounter Visit Diagnoses Diagnosis Cardiac pacemaker in situ documented in this encounter Care Teams Exceptional Student Education Teacher Relationship Specialty Start Date End Date Graham Licona MD PCP - General Family Medicine 06/30/21 [facility] [address] [place] [address] Timothy Smith MD Assigned Heart and Vascular 07/23/20 [address] Provider [place] [id number] documented as of this encounter
--- OUTSIDE RECORDS SUMMARY | 2022-06-22 08:51 | XMS_ITS | Encounter Summary ---
:1940 Author Organization [facility] Address [address] [place] [address] Care Team Providers Name Role Phone Timothy Smith MD Unavailable Graham Licona MD Primary Care Provider Encounter Details Date Type Department Care Team Description 12/09/2021 Telephone [facility] Keyshawn Myers RN [address] [place] [address] Social History Tobacco Use Types Packs/Day Years Used Date Never Smoker Smokeless Tobacco: Never Used Alcohol Use Standard Drinks/Week Comments No 0 (1 standard drink = 0.6 oz pure alcoho l) Sex Assigned at Date Recorded Not on file COVID-19 Exposure Response Date Recorded In the last month, have you been in contact Unable to assess 12/02/2021 12:08 PM [employer] with someone who was confirmed or suspected to have Coronavirus / COVID-19? documented as of this encounter Miscellaneous Notes Telephone Encounter - Aliza Whitman - 12/09/2021 1:04 PM CST SIENNA Soliman from Dr Licona's office called device clinic with questions regarding alert that was received from patient's ICD. Reviewed with Janny the [employer] reading and what it means. Per note belowpatient has some swelling in his toes and ankles and it was suggested to follow up with PCP to discuss diuretic dosage. Janny appreciative for the information. [employer] Telephone Encounter - Kitty Myers RN - 12/09/2021 9:20 AM CST Remote alert for heart logic index at 20. This has been slowly trending up. Spoke with patient. He states that his weight has been stable and he feels well. He does have a small amount of swelling in his toes and ankles. Asked patient to contact his PCP (they manage his diuretics) to let them know that he has some swelling. Patient states understanding and agreement with plan. [employer] documented in this encounter Plan of Treatment Upcoming Encounters Date Type Specialty Care Team Description 06/26/2022 Ancillary Procedure Cardiology Seng Canchola MD [address] [place] [id number] (Wo rk) 08/16/2022 Ancillary Procedure Cardiology Timothy Smith MD [address] [place] [id number] (Wo rk) 08/16/2022 Office Visit Cardiology Timothy Smith MD [address] [place] [id number] (Wo rk) documented as of this encounter Visit Diagnoses Not on filedocumented in this encounter Care Teams Ambulatory Technologist Relationship Specialty Start Date End Date Graham Licona MD PCP - General Family Medicine 06/30/21 [facility] [address] [place] [address] Timothy Smith MD Assigned [facility] 07/23/[address] Provider [place] [id number] documented as of this encounter
--- OUTSIDE RECORDS SUMMARY | 2022-06-22 08:52 | XMS_ITS | Encounter Summary ---
:1940 Author Organization [facility] Address [address] [place] [address] Care Team Providers Name Role Phone Timothy Smith MD Unavailable Graham Licona MD Primary Care Provider Encounter Details Date Type Department Care Team Description 07/14/2021 Travel Social History Tobacco Use Types Packs/Day Years Used Date Never Smoker Smokeless Tobacco: Never Used Alcohol Use Standard Drinks/Week Comments No 0 (1 standard drink = 0.6 oz pure alcoho l) Sex Assigned at Date Recorded Not on file COVID-19 Exposure Response Date Recorded In the last month, have you been in contact with No / Unsure 07/14/2021 10:54 AM CDT someone who was confirmed or suspected to have Coronavirus / COVID-19? 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
--- OUTSIDE RECORDS SUMMARY | 2022-06-22 08:52 | XMS_ITS | Encounter Summary ---
:1940 Author Organization [facility] Address [address] [place] [address] Care Team Providers Name Role Phone Timothy Smith MD Unavailable Graham Licona MD Primary Care Provider Reason for Visit Auth/Cert Specialty Diagnoses / Procedures Referred By Contact Refer red To Contact Med Surg Diagnoses Sustained VT (ventricular tachycardia) Cardiac pacemaker in situ VT Care Suites Procedures HC ICD IMPLANT, SINGLE / DUAL W LEAD INSERTION/REPOSITIONING Implantable Cardioverter-Defibrillator (ICD) [address] [id number] Phone: Referral ID Status Reason Start Date Expiration Date Visits Requ ested Visits Authorized [id number] 1 1 Encounter Details Date Type Department Care Team Description 07/04/[address] [facility] Timothy Smith MD [address] [place] [id number] Sustained VT (ventricular tachycardia) ( H); [facility] Kaur De Leon MD [address] [place] [address] Cardiac pacemaker in situ Suites [address] [id number] Social History Tobacco Use Types Packs/Day Years Used Date Never Smoker Smokeless Tobacco: Never Used Alcohol Use Standard Drinks/Week Comments No 0 (1 standard drink = 0.6 oz pure alcoho l) Sex Assigned at Date Recorded Not on file documented as of this encounter Last Filed Vital Signs Vital Sign Reading Time Taken Comments Blood Pressure 108/67 07/04/2021 4:00 PM CDT Pulse 79 07/04/2021 4:00 PM CDT Temperature 36.6 ??C (97.9 ??F) 07/04/2021 12:03 PM CDT Respiratory Rate 16 07/04/2021 4:00 PM CDT Oxygen Saturation 96% 07/04/2021 4:00 PM CDT Inhaled Oxygen Concentration - - Weight 124.7 kg (275 lb) 07/04/2021 12:03 PM CDT Height 174 cm (5' 8.5) 07/04/2021 12:03 PM CDT Body Mass Index 41.2 07/04/2021 12:03 PM CDT documented in this encounter Discharge Instructions Discharge InstructionsAnila Bright RN - 07/04/2021 4:40 PM CDT ICD Implant Discharge Instructions After you go home: ??? Have an adult stay with you until tomorrow. ??? You may resume your normal diet. For 24 hours - due to the sedation you received: ??? Relax and take it easy. ??? Do NOT make any important or legal decisions. ??? Do NOT drive or operate machines at home or at work. ??? Do NOT drink alcohol. Care of Chest Incision: ??? Keep the bandage on at least 3 days. You may remove the dressing on afternoon. Change it only if it gets loose or soaked. If you need to change it, use [id number] gauze and a large clear bandage. ??? Leave the strips of tape on. They will fall off on their own, or we will remove them at your first check-up. ??? Check your wound daily for signs of infection, such as increased redness, severe swelling or draining. Fever may also be a sign of infection. Call us if you see any of these signs. ??? If there are no signs of infection, you may shower after the bandage comes off in 3 days. If youtake a tub bath, keep the wound dry. ??? No soaking the incision (swimming pool, bathtub, hot tub) for 2 weeks. ??? You may have mild to medium pain for 3 to 5 days. Take Acetaminophen (Tylenol) or Ibuprofen (Advil) for the pain. If the pain persists or is severe, call us. Activity: ??? For at least 2 weeks: Do not raise your elbow above your shoulder. You can begin to use your fela it feels comfortable to you. ??? Do not use arm on implant side to lift more than 10 pounds for 2 weeks. ??? In 6 to 8 weeks: You may begin to golf, play tennis, swim and do similar activities. ? ? No driving for one day & limit to necessary driving for one week. Please talk to your doctorfor specific recommendations. Bleeding: ??? If you start bleeding from the incision site, sit down and press firmly on the site for 10 minutes. ??? Once bleeding stops, call [facility] as soon as you can. Call 911 right away if you have heavy bleeding or bleeding that does not stop. Medicines: ??? Take your medications, including blood thinners, unless your provider tells you not to. ??? If you have stopped any medicines, check with your provider about when to restart them. Follow Up Appointments: ??? Follow up with Device Clinic at [facility] Heart [facility] of patient preference in 7- 10 days. Call the clinic if: ??? You have a large or growing hard lump around the site. ??? The site is red, swollen, hot or tender. ??? Blood or fluid is draining from the site. ??? You have chills or a fever greater than 101 F (38 C). ??? You feel dizzy or light-headed. ??? Questions or concerns. Telling others about your device: ??? Before you leave the hospital, you will receive a temporary ID card. A permanent card will be mailed to you about 6 to 8 weeks later. Always carry the ID card with you. It has important details about your device. ??? You may also get a Medical Alert bracelet or tag that says you have a defibrillator (ICD). Go [email or web address]. ??? Always tell doctors, dentists and other care providers that you have a device implanted in you. ??? Let us know before you plan any surgeries. Your care team must take special steps to keep you safe during certain procedures. These steps will depend on the type of device you have. Your provider will need to see your ID card. They may need to call us for instructions. Device Safety: ??? Please refer to device brick wheeler???s booklet for further information. [facility]: [phone] UMP (7 days a week) documented in this encounter Medications at Time of Discharge Medication Sig Dispensed Refills Start Date End Date ACYCLOVIR 400 MG OR TABS 1 TABLET 3 TIMES 30 6 04/25 DAILY-as need for Cold sores atorvastatin (LIPITOR) 20 Take 20 mg by mouth 0 MG tablet daily biotin 1000 MCG TABS Take 1,000 mcg by 0 tablet mouth daily fenofibrate 160 MG tablet Take 160 mg by mouth 0 daily. furosemide (LASIX) 40 MG Take 40 mg by mouth 0 tablet daily glimepiride (AMARYL) 2 MG Take 2 mg by mouth 2 0 tablet times daily loratadine (CLARITIN) 10 Take 10 mg by mouth 0 MG tablet daily metFORMIN (GLUCOPHAGE) 500 Take 2 tablets 0 06/30 MG tabletIndications: Type (1,000 mg) by mouth 2 diabetes mellitus with 2 times daily (with complication (H) meals) metoprolol succinate ER Take 1 tablet (50 90 tablet 3 03/23 (TOPROL-XL) 50 MG 24 hr mg) by mouth daily tabletIndications: Persistent atrial fibrillation (H) nitroGLYcerin (NITROSTAT) Place 1 tablet (0.4 100 tablet 3 0 02/24/2020 0.4 MG sublingual mg) under the tongue tabletIndications: every 5 minutes as Coronary artery disease needed for chest involving [place] coronary pain artery of [place] heart without angina pectoris omeprazole (PRILOSEC) 20 Take 20 mg by mouth [address] capsule daily tamsulosin (FLOMAX) 0.4 MG Take 0.4 mg by mouth 0 capsule every evening documented as of this encounter Progress Notes Anila Bright RN - 07/04/2021 5:33 PM CDT 1535 Report received from Trudi Rhoades RN. 1545 Pt A/O. Drsg CDI to left chest. No oozing or hematoma noted. Area soft & flat. Pt denies pain. Pt instructed on activity restrictions with left arm. Verbal understanding received. Pt's atbedside. Detailed update given. ICD/PPM booklet & ID card given to pt's . Many questions answered. Pt taking diet & flds well. No complaints. 1600 Pt continues with frequent runs of PVCs - pt asymptomatic. 1615 OOB - steady on feet. Ambulated in halls to bathroom with good angeline. 1620 Pt to radiology for CXR. See results. 1635 Device check done at this time. 1650 Discharge teaching & instructions given to both pt & w/ verbal understanding received. All questions & concerns addressed. 1730 Pt discharged per w/c to private vehicle. All personal belongings taken w/ pt. Trudi Rhoades RN - 07/04/2021 3:21 PM CDT Care Suites Post Procedure Note Patient Information Name: Haris Villa Age: [age] year old Post Procedure Time patient returned to Care Suites: 1500 Concerns/abnormal assessment: pt has significant PVCs vs VT on monitor. MD aware and states pt had this rhythm during the case as well. Pt had low sats, O2 applied. Pt tolerated food and fluids withoutissue. If abnormal assessment, provider notified: Yes Plan/Other: recover from sedation, O2 via NC, monitor rhythm and vital signs, treat as needed. CXRs ordered and will be done prior to discharge. Change of shirt report given to Anila Rhoades RN Kaur De Leon MD - 07/04/2021 2:53 PM CDT Uneventful upgrading of a pacemaker to an ICD. Home after recovering from sedation provided normal cxr and device check. Anila Bright RN - 07/04/2021 1:33 PM CDT Care Suites Admission Nursing Note Reason for admission: ICD Implant CS arrival time: 1200 Accompanied by: - Prachi Name/phone of DC utility driver: ... [phone] Medications held: off blood thinners (Eliquis) for past month d/t GI bleed Education/questions answered: Procedure explained. All questions & concerns addressed. Plan: Home with post procedure A/O. Denies pain. Labs WNL. IV flds infusing. Procedure explained. All questions & concerns addressed. Pt resting in bed, denies additional needs at this time, call light within reach. at bedside. 1220 Report received from Trudi Rhoades RN. 1315 Dr De Leon at bedside to speak with pt & . Consent signed at this time. 1325 Report given to Trudi Rhoades RN. Anila Coulter RN - 07/04/2021 12:31 PM CDT PATIENT/VISITOR WELLNESS SCREENING Step 1 Patient Screening 1. In the last month, have you been in contact with someone who was confirmed or suspected to have Coronavirus/COVID-19? No 2. Do you have the following symptoms? Fever/Chills? No Cough? No Shortness of breath? No Skin rash? No New loss of taste or smell? No Sore throat? No Muscle or body aches? No Headaches? No Fatigue? No Vomiting or diarrhea? No Step 2 Visitor Screening 1. Name of Visitor (1 visitor per patient): Prachi - 2. In the last month, have you been in contact with someone who was confirmed or suspected to have Coronavirus/COVID-19? No 3. Do you have the following symptoms? Fever/Chills? No Cough? No Shortness of breath? No Skin rash? No New loss of taste or smell? No Sore throat? No Runny or stuffy nose? No Muscle or body aches? No Headaches? No Fatigue? No Vomiting or diarrhea? No If the visitor has positive symptoms, notify winding department supervisor/manger Per policy, the visitor will need to leave the facility documented in this encounter Plan of Treatment Upcoming Encounters Date Type Specialty Care Team Description 06/26/2022 Ancillary Procedure Cardiology Seng Canchola MD [address] [place], [place] [id number] (Wo rk) 08/16/2022 Ancillary Procedure Cardiology Timothy Smith MD [address] [place], [place] [id number] (Wo rk) 08/16/2022 Office Visit Cardiology Timothy Smith MD [address] [place], [place] [id number] (Wo rk) documented as of this encounter Procedures Procedure Name Priority Date/Time Associated Diagnosis Comme nts XR CHEST 2 VIEWS STAT 07/04/2021 4:35 PM Resul ts for this CDT procedure are i n the results section. EP ICD Routine 07/04/2021 2:40 PM Sustained VT Results f or this CDT (ventricular procedure are i n tachycardia) (H) the results Cardiac pacemaker in section . situ BASIC METABOLIC STAT 07/04/2021 12:48 PM Resul ts for this PANEL CDT procedure are i n the results section. CBC WITH PLATELETS STAT 07/04/2021 12:48 PM Re sults for this CDT procedure are i n the results section. EKG 12-LEAD, STAT 07/04/2021 12:15 PM Results for this TRACING ONLY CDT procedure are i n the results section. EP REPORT - HIM 07/04/2021 12:00 AM SCAN CDT documented in this encounter Results X-ray Chest 2 vws* (07/04/2021 4:35 PM CDT) Anatomical Region Laterality Modality Chest Digital Radiography Specimen (Source) Anatomical Location Collection Method / Collectio n Time Received Time / Laterality Volume Impressions 07/04/2021 4:59 PM CDT IMPRESSION: No acute disease. VALERIANO FITZGERALD MD SYSTEM ID: ??[id number] Narrative 07/04/2021 4:59 PM CDT CHEST TWO VIEWS 07/04/2021 4:35 PM HISTORY: Implantable cardiac device plac ement, evaluate for pneumothorax. COMPARISON: 05/02/2018 FINDINGS: Cardiac leads noted that proje ct over the cardiac silhouette. No pneumothorax. Question so me atelectasis and/or infiltrate in the mid to lower right cesar g. The cardiac silhouette is enlarged, but similar to previous. Pulmo nary vasculature appears congested. Procedure Note Valeriano Fitzgerald MD - 07/04/2021Fo rmatting of this note might be different from the original. CHEST TWO VIEWS 07/04/2021 4:35 PM HISTORY: Implantable cardiac device plac ement, evaluate for pneumothorax. COMPARISON: 05/02/2018 FINDINGS: Cardiac leads noted that proje ct over the cardiac silhouette. No pneumothorax. Question so me atelectasis and/or infiltrate in the mid to lower right cesar g. The cardiac silhouette is enlarged, but similar to previous. Pulmo nary vasculature appears congested. IMPRESSION: No acute disease. VALERIANO FITZGERALD MD SYSTEM ID: [id number] Kaur Hinds MD IMG DIAGNOSTIC IMAGING ORDER ANN EP ICD (07/04/2021 2:40 PM CDT) Anatomical Region Laterality Modality Radio Fluoroscopy Specimen (Source) Anatomical Location Collection Method / Collectio n Time Received Time / Laterality Volume Narrative 07/04/2021 4:21 PM CDT PROCEDURES PERFORMED: 1. Upgrading of a pacemaker to a single- chamber implantable cardioverter defibrillator (ICD) 2. Conscious sedation. 3. Cardiac fluoroscopy INDICATION: Ventricular tachycardia HISTORY OF PRESENT ILLNESS: This is a 80 year old year-old patient with a history of CAD with CABG, s/p ppm for ta chybrady syndrome who was noted to have frequent PVCs up to 25% of the time along with sustained VT at a rate of 170 bpm lasted longer than 1 minute a /w lightheadedness. It is unclear if morphology of sustained VT was simila r to PVCs which has a RBBB and inferior axis orientation. Patient is re ferred for an ICD as secondary prevention against sudden cardiac as recommended by his primary EP physician, Dr. Smith. Risks of the procedur e was discussed before the procedure including but not limited to v ascular injury, infection, pneumothorax, and cardiac perforation. METHOD: Informed consent was obtained an d intravenous antibiotics was given prior to the procedure. The patien t was prepped and draped in the usual manner. Subclavian venogram was pe rformed showing patency. 1% lidocaine was infiltrated into the incis ion located over the left axillary vein area. ??An incision was then made w ith a #15 blade. The device was removed from the pocket. This vein was a ccessed using the modified Seldinger's technique with radiographic guidance as guided by venogram. A sheath was then glide over the wire into the vein. A lead was then advanced into the heart and was fixed in to the right ventricular apical area. Appropriate sensing and threshold were obtained. There was no diaphragmatic stimulation with high outp ut pacing. The sheath was then peeled away. The lead was then secured t o the pectoralis muscle fascia using O-Ethibond sutures. The pacemaker leads were removed the pac Kenguruker generator and were capped. A pocket was then revised and was irriga star with NS solution. The lead was then attached to the device and placed i n the pocket. ??The pocket was then closed with 2-0 and 4-0 Vicryl sutures. Steri-Strips and an OpSite dressing were then placed over the incis ion. ??The patient was then transferred back to the Care Suites ??in stable condition. DEVICE INFORMATION: Implant Name Type Inv. Item Serial No. M anufacturer Lot No. LRB No. Used Action ICD RESONATE EL VR DF4 - [id number] ICD ICD RESONATE EL VR DF4 [id number] [employer] [place] [id number] ??1 Implante d LEAD ??RELIANCE ENDOTAK DF4 AF 59 CM 027 2 - [id number] Leads LEAD ??RELIANCE ENDOTAK DF4 AF 59 CM [id number] [employer] [id number] ??1 Implanted STIMULATION THRESHOLDS: RV - ??Sense:8.4 mV, Threshold: 0.5 V @ 0.4-0.5 ms, Impedance: 583 ohms COMPLICATIONS: None CONCLUSION: 1. Uneventful upgrading of pacemaker to a single-chamber implantable cardioverter defibrillator 2. 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 Will defer to Dr. Smith for treatment Kaur De Leon MD Timothy Smith MD CV ELECTROPHYSIOLOGY ORDERAB LES (ABNORMAL) CBC with platelets (07/04/2021 12:48 PM CDT) Patholo gist Method Time Signature WBC Count 6.9 4.0 - 11.0 07/04/2021 LABORATORY 10e3/uL 12:54 PM CDT RBC Count 3.52 (L) 4.40 - 07/04/2021 LABORATORY 5.90 12:54 PM CDT 10e6/uL Hemoglobin 10.6 (L) 13.3 - 07/04/2021 LABORATORY 17.7 g/dL 12:54 PM CDT Hematocrit 34.5 (L) 40.0 - 07/04/2021 LABORATORY 53.0 % 12:54 PM CDT MCV 98 78 - 100 07/04/2021 LABORATORY fL 12:54 PM CDT MCH 30.1 26.5 - 07/04/2021 LABORATORY 33.0 pg 12:54 PM CDT MCHC 30.7 (L) 31.5 - 07/04/2021 LABORATORY 36.5 g/dL 12:54 PM CDT RDW 15.9 (H) 10.0 - 07/04/2021 LABORATORY 15.0 % 12:54 PM CDT Platelet Count 250 150 - 450 07/04/2021 LABORATORY 10e3/uL 12:54 PM CDT Specimen Anatomical Collection Method / Collection Time Recei chikis Time (Source) Location / Volume Laterality Blood STRUCTURE OF LEFT Venipuncture / 07/04/2021 12:48 10/0 12/2020 UPPER LIMB / Unknown PM CDT 12:52 PM CDT Unknown Timothy Smith MD LAB - BLOOD ORDERABLES Performing Organization Address City/State/ZIP Code Phon e Number LABORATORY [place] [address] [facility] [address] floor, Room [address] (ABNORMAL) Basic metabolic panel (07/04/2021 12:48 PM CDT) Analysis Performed At Patho logist Time Signature Sodium 140 133 - 144 07/04/2021 LABORATORY mmol/L 1:15 PM CDT Potassium 4.2 3.4 - 5.3 07/04/2021 LABORATORY mmol/L 1:15 PM CDT Chloride 105 94 - 109 07/04/2021 LABORATORY mmol/L 1:15 PM CDT Carbon Dioxide 27 20 - 32 07/04/2021 LABORATORY (CO2) mmol/L 1:15 PM CDT Anion Gap 8 3 - 14 07/04/2021 LABORATORY mmol/L 1:15 PM CDT Urea Nitrogen 27 7 - 30 07/04/2021 LABORATORY mg/dL 1:15 PM CDT Creatinine 1.25 0.66 - 07/04/2021 LABORATORY 1.25 mg/dL 1:15 PM CDT Calcium 9.2 8.5 - 10.1 07/04/2021 LABORATORY mg/dL 1:15 PM CDT Glucose 151 (H) 70 - 99 07/04/2021 LABORATORY mg/dL 1:15 PM CDT GFR Estimate 53 (L) >60 07/04/2021 LABORATORY mL/min/1.7 1:15 PM CDT 3m2 Comment: As of April 10, 2021, eGFR is ca lculated by the CKD-EPI creatinine equation, without race adjustment. eGFR can be inf luenced by muscle mass, exercise, and diet. The reported eGFR is an estimation only and is only applicable if the renal function is stable. Specimen Anatomical Collection Method / Collection Time Recei chikis Time (Source) Location / Volume Laterality Blood STRUCTURE OF LEFT Venipuncture / 07/04/2021 12:48 10/12/2020 UPPER LIMB / Unknown PM CDT 12:52 PM CDT Unknown Timothy Smith MD LAB - BLOOD ORDERABLES Performing Organization Address City/State/ZIP Code [place] [address] [facility] [address], [address] EKG 12-lead, tracing only (07/04/2021 12:15 PM CDT) Component Value Ref Range Test Analysis Performed Pathologis t Method Time At Signature Systolic Blood mmHg RADIOLOGY Pressure RESULTS Diastolic Blood mmHg RADIOLOGY Pressure RESULTS Ventricular Rate 96 BPM RADIOLOGY RESULTS Atrial Rate 94 BPM RADIOLOGY RESULTS ID Interval ms RADIOLOGY RESULTS QRS Duration 140 ms RADIOLOGY RESULTS QT 418 ms RADIOLOGY RESULTS QTc 528 ms RADIOLOGY RESULTS P [place] degrees RADIOLOGY RESULTS R AXIS -79 degrees RADIOLOGY RESULTS T [place] 3 degrees RADIOLOGY RESULTS Interpretation Atrial fibrillation with premature ventricular beats RADIOLOGY ECG Left axis deviation RESULTS Right bundle branch block Inferior infarct , age undetermined Abnormal ECG When compared with ECG of 31-MAY-2018 13:40, Atrial fibrillation has replaced Sinus rhythm Confirmed by MD SAUNDRA, KAUR (1984), editor newspaper TIMA [employer]ONEL ([id number]) on 07/05/2021 6:24:46 PM Specimen Anatomical Collection Method Collection Time Receive d Time (Source) Location / / Volume Laterality 07/04/2021 12:15 07/05/2021 6:24 PM CDT PM CDT Timothy Smith MD ECG ORDERABLES Performing Organization Address City/State/ZIP Code Phon e Number RADIOLOGY RESULTS EP REPORT - HIM SCAN (07/04/2021 12:00 AM CDT) Specimen (Source) Anatomical Location Collection Method / Collectio n Time Received Time / Laterality Volume 07/04/2021 Narrative This result has an attachment that is no t available. Provider Scan CV ELECTROPHYSIOLOGY ORDERAB LES documented in this encounter Visit Diagnoses Diagnosis Sustained VT (ventricular tachycardia) Paroxysmal ventricular tachycardia Cardiac pacemaker in situ Sustained VT (ventricular tachycardia) Paroxysmal ventricular tachycardia Cardiac pacemaker in situ documented in this encounter Administered Medications Inactive Administered Medications - up to 3 most recent administrations Medication Order MAR Action Action Date Dose Rate Site 0.45% sodium chloride infusion New Bag 07/04/2021 1:05 PM CDT 75 mL/hr at 75 mL/hr, Intravenous, CONTINUOUS, Start 2 hours pre-procedure and then per provider direction intra-procedure. Pre-procedurally for CAR electrophysiology studies., Cardiac Pre-procedure, Starting on Sun07/04/21 at 1230, Until Sun07/04/21 at 1504 ceFAZolin (ANCEF) intermittent New Bag 07/04/2021 1:45 PM CDT 3 g 200 mL/hr infusion 3 g (pre-mix) Routine, 3 g, Intravenous, PRE-OP/PRE-PROCEDURE, Starting on Sun07/04/21 at 1200, For 1 dose, Give dose within 1 hour PRIOR to procedure in pre-procedure area (Outpatients), or, on Patient Care Unit (Inpatients) PRIOR to arrival in EP lab. Call EP lab to coordinate start time., Indications: Perioperative Pharmacoprophylaxis, Cardiac Pre-procedure documented in this encounter Active and Recently Administered Medications Times are shown in CDT. Scheduled Medication Order 07/02/2021 07/03/2021 07/04/2021 ceFAZolin (ANCEF) intermittent infusion 3 g (pre-mix) (COMPLETED ) 1345 (New Bag - Provider: Heriberto Gaston, RN) Routine, 3 g, Intravenous, PRE-OP/PRE-ID OCEDURE, Starting on Sun07/04/21 at 1200, For 1 dose, Give dose within 1 hour PRIOR to procedure in pre-procedure area (Outpatients), or, on Patient Care Unit (In patients) PRIOR to arrival in EP lab. Ca ll EP lab to coordinate start time., Indications: Perioperative Pharmacoprophylaxis, Cardiac Pre-procedure Continuous Medication Order 07/02/2021 07/03/2021 07/04/2021 0.45% sodium chloride infusion (CANCELED) 1305 (New Bag - Provider: Anila Bright RN) at 75 mL/hr, Intravenous, CONTINUOUS, St art 2 hours pre-procedure and then per provider direction intra-procedure. Pre-procedurally for CAR electrophysiology studies., Cardiac Pre-procedure, Starting on Sun07/04/21 at 1230, Until Sun07/04/21 at 1504 PRN Medication Order 07/02/2021 07/03/2021 07/04/2021 bupivacaine (MARCAINE) 0.25% preservative free injection (CANCEL ED) 1401 (Given - Provider: Heriberto Gaston, RN) ONCE PRN, Starting on Sun07/04/21 at 1401, Cardiac Intra-procedu re fentaNYL (PF) (SUBLIMAZE) injection (CANCELED) 1350 (Given - Provider: Heriberto Gaston, RN)1358 (Given - Provider: Heriberto Gaston, RN)1423 (Given - Provider: Heriberto Gaston, RN) ONCE PRN, Administer over 3-5 Minutes, S tarting on Sun07/04/21 at 1350, Cardiac Intra-procedure lidocaine 1 % (CANCELED) 1401 (G iven - Provider: Heriberto Gaston, RN) ONCE PRN, Starting on Sun07/04/21 at 1401, Cardiac Intra-procedu re midazolam (VERSED) injection (CANCELED) 1350 (Given - Provider: Heriberto Gaston, RN)1358 (Given - Provider: Heriberto Gaston, RN)1414 (Given - Provider: Heriberto Gaston, RN) Administer over 2 Minutes, ONCE PRN, Sta rting on Sun07/04/21 at 1350, Cardiac Intra-procedure naloxone (NARCAN) injection 0.2 mg 0.2 mg, Intravenous, EVERY 2 MIN PRN, op ioid reversal, Starting on Sun07/04/21 at 1506, Administer intravenous route when available and notify provider when administered. For unintended sedation or resp iratory depression if all of the below c riteria are met: ~ respiratory rate LESS than or EQUAL to 8. ~SaO2 less than 92% and or/end-tidal CO2 is greater than 50. ~ the patient is receiving an opioid, kirby s unintended sedations assessed as RASS (-3), and is currently not on mechanical ventilation. RASS scale moderate (-3) is movement or eye opening to voice but no eye contact. Patient Monitoring Once the patient has demonstrated a response to the naloxone, continue to monitor respiratory rate, depth, oxygen saturation and end-tidal CO2 (if available) every 15 minutes x 2, then every 30 minutes x 2, the n every 1 hour x 1 after each naloxone d ose. Consider transfer to ICU if patient respiratory parameters have not improved after 4 naloxone doses. naloxone (NARCAN) injection 0.2 mg 0.2 mg, Intramuscular, EVERY 2 MIN PRN, opioid reversal, Starting on Sun07/04/21 at 1506, Administer intramuscular if an intravenous route is not available and notify provider when administered. For uni ntended sedation or respiratory depressi on if all of the below criteria are met: ~ respiratory rate LESS than or EQUAL to 8. ~SaO2 less than 92% and or/end-tidal CO2 is greater than 50. ~ the patient is receiving an opioid, has unintended sed ations assessed as RASS (-3), and is currently not on mechanical ventilation. RASS scale moderate (-3) is movement or eye opening to voice but no eye contact. Pat ient Monitoring Once the patient has dem onstrated a response to the naloxone, continue to monitor respiratory rate, depth, oxygen saturation and end-tidal CO2 (if available) every 15 minutes x 2, then e very 30 minutes x 2, then every 1 hour x 1 after each naloxone dose. Consider transfer to ICU if patient respiratory parameters have not improved after 4 naloxone doses. naloxone (NARCAN) injection 0.4 mg 0.4 mg, Intravenous, EVERY 2 MIN PRN, op ioid reversal, Starting on Sun07/04/21 at 1506, Administer intravenous route when available and notify provider when administered. For unintended sedation or resp iratory depression if all of the below c riteria are met: ~ respiratory rate LESS than or EQUAL to 8. ~ SaO2 less than 92% and or/end-tidal CO2 is greater than 50. ~ the patient is receiving an opioid, h as unintended sedation assessed as RASS (-4) or (-5) and patient is currently not on mechanical ventilation. RASS scale (-4) is deep sedation with no response to voice but movement or eye opening to phy sical stimulation. RASS scale (-5) is un arousable. Patient Monitoring Once the patient has demonstrated a response to the naloxone, continue to monitor respiratory rate, depth, oxygen saturation and end -tidal CO2 (if available) every 15 minut es x 2, then every 30 minutes x 2, then every 1 hour x 1 after each naloxone dose. Consider transfer to ICU if patient respiratory parameters have not improved after 4 naloxone doses. naloxone (NARCAN) injection 0.4 mg 0.4 mg, Intramuscular, EVERY 2 MIN PRN, opioid reversal, Starting on Sun07/04/21 at 1506, Administer intramuscular if an intravenous route is not available and notify provider when administered. For uni ntended sedation or respiratory depressi on if all of the below criteria are met: ~ respiratory rate LESS than or EQUAL to 8. ~ SaO2 less than 92% and or/end- tidal CO2 is greater than 50. ~ the patient i s receiving an opioid, has unintended se dation assessed as RASS (-4) or (-5) and patient is currently not on mechanical ventilation. RASS scale (-4) is deep sedation with no response to voice but moveme nt or eye opening to physical stimulatio n. RASS scale (-5) is unarousable. Patient Monitoring Once the patient has demonstrated a response to the naloxone, continue to monitor respiratory rate, depth, o xygen saturation and end-tidal CO2 (if a vailable) every 15 minutes x 2, then every 30 minutes x 2, then every 1 hour x 1 after each naloxone dose. Consider transfer to ICU if patient respiratory parameters have not improved after 4 naloxone doses. oxyCODONE-acetaminophen (PERCOCET) 5-325 MG per tablet 1 tablet 1 tablet, Oral, EVERY 4 HOURS PRN, other , mild or moderate pain, Starting on 07/04/21 at 1506, Maximum acetaminophen dose from all sources= 75 mg/kg/day not to exceed 4 grams documented in this encounter Care Teams Film Recordist Relationship Specialty Start Date End Date Graham Licona MD PCP - General Family Medicine 06/30/21 [facility] [address] [place] [address] Timothy Smith MD Assigned Heart and Vascular 07/23/20 [address] Provider [place] [id number] documented as of this encounter
--- OUTSIDE RECORDS SUMMARY | 2022-06-22 08:52 | XMS_ITS | Encounter Summary ---
:1940 Author Organization [place] Address [address] [place] [address] Care Team Providers Name Role Phone Slava Hernandez PA-C Primary Care Provider Timothy Smith MD Unavailable Reason for Visit CV Testing (Routine) - Closed Specialty Diagnoses / Procedures Referred By Contact Refer red To Contact Diagnoses Cardiac pacemaker in situ SSS (sick sinus syndrome) (H) Steven Canhcola Procedures Cardiac Device Check - Remote [address] [place] [id number] Referral ID Status Reason Start Date Expiration Date Visits Requ ested Visits Authorized [id number] Closed 02/16/2021 02/16/2022 1 1 Encounter Details Date Type Department Care Team Description 05/18/2021 Ancillary [facility] Steven Canchola Card iac pacemaker in situ; Procedure [facility] MD Jose SSS (sick sinus syndrome) (H) Heart Care [address] [facility] [address] [place] [address] [place] [phone] (Wo rk) [address] [phone] Social History Tobacco Use Types Packs/Day Years Used Date Never Smoker Smokeless Tobacco: Never Used Alcohol Use Standard Drinks/Week Comments No 0 (1 standard drink = 0.6 oz pure alcoho l) Sex Assigned at Date Recorded Not on file COVID-19 Exposure Response Date Recorded In the last month, have you been in contact with No / Unsure 04/26/2021 12:28 PM CDT someone who was confirmed or suspected to have Coronavirus / COVID-19? documented as of this encounter Plan of Treatment Upcoming Encounters Date Type Specialty Care Team Description 06/26/2022 Ancillary Procedure Cardiology Seng Canchola MD [address] [place] [address] (Wo rk) 08/16/2022 Ancillary Procedure Cardiology Timothy Smith MD [address] [place] [address] (Wo rk) 08/16/2022 Office Visit Cardiology Timothy Smith MD [address] [place] [address] (Wo rk) documented as of this encounter Procedures Procedure Name Priority Date/Time Associated Comments Diagnosis INTERROGATION DEVICE Routine 05/18/2021 3:56 PM Cardiac pacema ker Results for this EVAL REMOTE PACER UP CDT in situ procedure are in TO 90 DAYS SSS (sick sinus the results syndrome) (H) section. documented in this encounter Results INTERROGATION DEVICE EVAL REMOTE PACER UP TO 90 DAYS (05/18/2021 3:56 PM CDT) Component Value Ref Test Analysis Performed Pathologis t Range Method Time At Signature Date Time [id number] [employer] Interrogation Session Implantable [employer] MED[employer]ONIC Pulse Generator Rental Car Deliverer Implantable L121 ESSENTIO EL MEDTRONIC Pulse Generator Model Implantable [id number] MEDTRONIC Pulse Generator Serial Number Type Remote MEDTRONIC Interrogation Session Clinic Name [facility] [employer] Implantable Pacemaker MED[employer]ONIC Pulse Generator Type Implantable [id number] MEDTRONIC Pulse Generator Implant Date Implantable Lead [facility] [employer]O RAUL Rental Car Deliverer Implantable Lead [id number] Tendril MEDTRONI C Model STS Implantable Lead [id number] MED[employer]IC Serial Number Implantable Lead [id number] MEDTRONIC Implant Date Implantable Lead Bipolar Lead MEDTRONIC Polarity Type Implantable Lead UNKNOWN [employer]IC Location Detail 1 Implantable Lead Right Atrium [employer] Location Implantable Lead [facility] [employer] RAUL Rental Car Deliverer Implantable Lead [id number] Tendril MEDTRONI C Model STS Implantable Lead [id number] [employer] Serial Number Implantable Lead [id number] MEDTRONIC Implant Date Implantable Lead Bipolar Lead [employer]ONIC Polarity Type Implantable Lead UNKNOWN [employer] Location Detail 1 Implantable Lead Right Ventricle MEDTRON IC Location Brandon Setting VVIR MEDTRONIC Mode (NBG Code) Brandon Setting 60 {beats}/ [employer] Lower Rate Limit min Brandon Setting 130 {beats}/ [employer] Maximum Sensor min Rate Brandon Setting AT 140 {beats}/ [employer] Mode Switch Rate min Lead Channel 0.15 mV MEDTRONIC Setting Sensing Sensitivity Lead Channel Adaptive [employer]IC Setting Sensing Adaptation Mode Lead Channel Bipolar [employer]IC Setting Sensing Polarity Lead Channel 1.5 mV MEDTRONIC Setting Sensing Sensitivity Lead Channel Adaptive MEDTR[employer]IC Setting Sensing Adaptation Mode Lead Channel Bipolar [employer]IC Setting Pacing Polarity Lead Channel 0.4 ms [employer]TR[employer]IC Setting Pacing Pulse Width Lead Channel 1.3 V [employer]TR[employer]IC Setting Pacing Amplitude Lead Channel Adaptive MEDTRONIC Setting Pacing Capture Mode Zone Setting VT MEDTRONIC Type Category Zone Setting VT MEDTRONIC Vendor Type Category Zone Setting 375 ms [employer]TRON[employer] Detection Interval Lead Channel 409 ohm [employer] Impedance Value Lead Channel 524 ohm [employer]IC Impedance Value Lead Channel 0.8 V [employer] Pacing Threshold Amplitude Lead Channel 0.4 ms [employer]TR[employer]IC Pacing Threshold Pulse Width Battery Date [id number] [employer] Time of Measurements Battery Status Beginning of [employer]TR[employer] Service Battery 126 mo [employer] Remaining Longevity Battery 100 % [employer] Remaining Percentage Brandon Statistic [id number] [employer] Date Time Start Brandon Statistic [id number] [employer]ONIC Date Time End Brandon Statistic 0 % [employer]IC RA Percent Paced Brandon Statistic 30 % [employer] RV Percent Paced Episode 0 MEDTRONIC Statistic Recent Count Episode AT/AF [employer]TRONIC Statistic Type Category Episode AF MEDTRONIC Statistic Vendor Type Category Episode 0 MEDTRONIC Statistic Recent Count Episode SVT MEDTRONIC Statistic Type Category Episode SVT MEDTRONIC Statistic Vendor Type Category Episode 2 [employer]TRONIC Statistic Recent Count Episode VT MEDTRONIC Statistic Type Category Episode NSVT MEDTRONIC Statistic Vendor Type Category Episode 0 MEDTRONIC Statistic Recent Count Episode VT MEDTRONIC Statistic Type Category Episode VT MEDTRONIC Statistic Vendor Type Category Episode [id number] [employer]TRONIC Statistic Recent Date Time Start Episode [id number] [employer]TRONIC Statistic Recent Date Time End Episode [id number] [employer]TR[employer]IC Statistic Recent Date Time Start Episode [id number] [employer] Statistic Recent Date Time End Episode [id number] [employer] Statistic Recent Date Time Start Episode [id number] [employer] Statistic Recent Date Time End Episode [id number] [employer]TR[employer]IC Statistic Recent Date Time Start Episode [id number] [employer]IC Statistic Recent Date Time End Episode APM-99 [employer]TR[employer]IC Identifier Episode Type Periodic EGM [employer]IC Category Episode Date [id number] MEDTRONIC Time Episode [id number] [employer]IC Identifier Episode Type Other MEDTRONIC Category Episode Date [id number] MEDTRONIC Time Episode V-[id number] MEDTRONIC Identifier Episode Type VT MEDTRONIC Category Episode Date [id number] MED[employer]ONIC Time Episode Duration 14 s MEDTRONIC Episode [id number] MEDTRONIC Identifier Episode Type VT MEDTRONIC Category Episode Date [id number] MED[employer]ONIC Time Episode Duration 16 s MEDTRONIC Anatomical Region Laterality Modality Other Specimen (Source) Anatomical Collection Method Collection Time Re ceived Time Location / / Volume Laterality 05/18/2021 12:41 AM CDT Narrative 05/24/2021 4:14 PM CDT [employer] Essentio (S) Remote PPM Device Check MEDICAL ASSISTANT PRN: 30% Mode: VVIR 60-130 Presenting Rhythm: MEDICAL ASSISTANT PRN Heart Rate: Adequate rates per histogram Sensing: Stable Pacing Threshold: Stable Impedance: Stable Battery Status: 10.5 years Atrial Arrhythmia: n/a Ventricular Arrhythmia: 2 ventricular hi gh rates. 2 EGMs for review show irregular VS events suggestive of RVR, e pisodes lasting 27-35 seconds, rates 100-180 bpm. Care Plan: F/U latitude ppm in 3 months. Gave PT results over the phone. JULY HenriquezT/ KAE Keen I have reviewed and interpreted the agustín ce interrogation, settings, programming and nurse's summary. The dev ice is functioning within normal device parameters. I agree with the curr ent findings, assessment and plan. Steven Canchola MD [facility] documented in this encounter Visit Diagnoses Diagnosis Cardiac pacemaker in situ SSS (sick sinus syndrome) (H) Sinoatrial node dysfunction documented in this encounter Care Teams Check Inspector Relationship Specialty Start Date End Date Slava Hernandez, PCP - General Physician Fiber Picker 07/02/1806/02 PA-C [address] [id number] Timothy Smith MD Assigned Heart and 07/23/20 [address] V[address] Provider [address] [place] [id number] documented as of this encounter
--- OUTSIDE RECORDS SUMMARY | 2022-06-22 08:52 | XMS_ITS | Encounter Summary ---
:1940 Author Organization [facility] Address [address] [place] [address] Care Team Providers Name Role Phone Timothy Smith MD Unavailable Graham Licona MD Primary Care Provider Reason for Visit Auth/Cert Specialty Diagnoses / Procedures Referred By Contact Refer red To Contact Med Surg Diagnoses Sustained VT (ventricular tachycardia) Cardiac pacemaker in situ VT Care Suites Procedures HC ICD IMPLANT, SINGLE / DUAL W LEAD INSERTION/REPOSITIONING Implantable Cardioverter-Defibrillator (ICD) [address] [place] [address] Phone: Referral ID Status Reason Start Date Expiration Date Visits Requ ested Visits Authorized [id number] 1 1 Encounter Details Date Type Department Care Team Description 07/04/2021 Surgery [facility] Kaur De Leon MD [facility] [address] Card ioverter-Defibrillat Heart Care [address] or (ICD) [address] [place] [address] [place] [address] [phone] Surgery Details Date/Time Status Location OR Service Patient Class Case Case Trauma Class Type Case? 07/04/21 2:00 Posted HEART Cath Cardiology Outpatient PM CARDIAC Lab 4 THERAPIST Panel 1 Procedure LRB Anes Op Region Wound Class Commen ts Implantable N/A Conscious Sedation Heart ICD I mplant, Cardioverter-Defibrill Li /De Leon, Lucia Sci, ator (ICD) prep mailed to pt, pt arrive at 1 2:00 Surgeon Surgeon Role Service Panel Kaur De Leon MD Primary Cardiology 1 documented in this encounter Social History Tobacco Use Types Packs/Day Years Used Date Never Smoker Smokeless Tobacco: Never Used Alcohol Use Standard Drinks/Week Comments No 0 (1 standard drink = 0.6 oz pure alcoho l) Sex Assigned at Date Recorded Not on file documented as of this encounter Last Filed Vital Signs Vital Sign Reading Time Taken Comments Blood Pressure 118/68 07/04/2021 3:00 PM CDT Pulse 99 07/04/2021 3:00 PM CDT Temperature 36.6 ??C (97.9 ??F) 07/04/2021 12:03 PM CDT Respiratory Rate 18 07/04/2021 12:03 PM CDT Oxygen Saturation 92% 07/04/2021 3:00 PM CDT Inhaled Oxygen Concentration - - [...] If you need to change it, use [id number] gauze and a large clear bandage. ??? [...] 10 minutes. ??? Once bleeding stops, call [facility] as soon as you can. Call 911 right away if you have heavy bleeding or bleeding that does not stop. Medicines: ??? Take your medications, including blood thinners, unless your provider tells you not to. ??? If you have stopped any medicines, check with your provider about when to restart them. Follow Up Appointments: ??? Follow up with Device Clinic at [facility] Heart Clinic of patient preference in 7- [...] says you have a defibrillator (ICD). Go [email or web address]. ??? Always tell doctors, dentists and other [...] Device Safety: ??? Please refer to device cray fishing hand???s booklet for further information. [facility] at [facility]: [phone] UM (7 days a week) documented in this [...] Coronary artery disease needed for chest involving [place] coronary pain artery of [place] heart without angina pectoris omeprazole (PRILOSEC) 20 [...] has significant PVCs vs VT on monitor. aware and states pt had this rhythm [...] provided normal cxr and device check. 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 [phone] Medications held: off blood thinners (Eliquis) for [...] If the visitor has positive symptoms, notify mirror department supervisor/manger Per policy, the visitor will need to leave the facility documented in this encounter Plan of Treatment Upcoming Encounters Date Type Specialty Care Team Description 06/26/2022 Ancillary Procedure Cardiology Seng Canchola MD [address] [place], [place] [address] (Wo rk) 08/16/2022 Ancillary Procedure Cardiology Timothy Smith MD [address] [place], [place] [address] (Wo rk) 08/16/2022 Office Visit Cardiology Timothy Smith MD [address] [place], [place] [address] (Wo rk) documented as of this encounter [...] The pacemaker leads were removed the pac Mobclixker generator and were capped. A pocket was [...] Action ICD RESONATE EL VR DF4 - [id number] ICD ICD RESONATE EL VR DF4 [id number] IPexpert [id number] ??1 Implante d LEAD ??RELIANCE ENDOTAK DF4 AF 59 CM 027 2 - [id number] Leads LEAD ??RELIANCE ENDOTAK DF4 AF 59 CM [id number] IPexpert [id number] ??1 Implanted STIMULATION THRESHOLDS: RV - ??Sense:8.4 [...] CBC with platelets (07/04/2021 12:48 PM CDT) [facility] Method Time Signature WBC Count 6.9 4.0 [...] Address City/State/ZIP Code Phon e Number [place] [address] [facility] [address] 1[address] floor, [...] Address City/State/ZIP Code Phon e Number [place] [address] [facility] [address] 1[address], Room 20B EKG 12-lead, tracing only (07/04/2021 12:15 PM CDT) Component Value Ref Range Test Analysis Performed Pathologis t Method Time At Signature Systolic Blood mmHg RADIOLOGY Pressure RESULTS Diastolic Blood mmHg RADIOLOGY Pressure RESULTS Ventricular Rate 96 BPM RADIOLOGY RESULTS Atrial Rate 94 BPM RADIOLOGY RESULTS AZ Interval ms RADIOLOGY RESULTS QRS Duration 140 ms RADIOLOGY RESULTS QT 418 ms RADIOLOGY RESULTS QTc 528 ms RADIOLOGY RESULTS P [place] degrees RADIOLOGY RESULTS R AXIS -79 degrees RADIOLOGY RESULTS T [place] 3 degrees RADIOLOGY RESULTS Interpretation Atrial fibrillation with premature ventricular beats RADIOLOGY ECG Left axis deviation RESULTS Right bundle branch block Inferior infarct , age undetermined Abnormal ECG When compared with ECG of 31-MAY-2018 13:40, Atrial fibrillation has replaced Sinus rhythm Confirmed by MD SAUNDRA, KAUR (1984), editor dictionary TIMA CORONEL ([id number]) on 07/05/2021 6:24:46 PM Specimen Anatomical Collection [...] Sun07/04/21 at 1230, Until Sun07/04/21 at 1504 bupivacaine (MARCAINE) 0.25% Given 07/04/2021 2:01 PM CDT 10 mLs Left Chest preservative free injection ONCE PRN, Starting on Sun07/04/21 at 1401, Cardiac Intra-procedure ceFAZolin (ANCEF) intermittent New Bag 07/04/2021 1:45 [...] start time., Indications: Perioperative Pharmacoprophylaxis, Cardiac Pre-procedure fentaNYL (PF) (SUBLIMAZE) injection Given 07/04/2021 2:23 PM CDT 50 mcg ONCE PRN, Administer over 3-5 Minutes, Starting on Sun07/04/21 at 1350, Cardiac Intra-procedure Given 07/04/2021 1:58 PM CDT 50 mcg Given 07/04/2021 1:50 PM CDT 50 mcg lidocaine 1 % Given 07/04/2021 2:01 PM CDT 10 mLs Left Chest ONCE PRN, Starting on Sun07/04/21 at 1401, Cardiac Intra-procedure midazolam (VERSED) injection Given 07/04/2021 2:14 PM CDT 1 mg Administer over 2 Minutes, ONCE PRN, Starting on Sun07/04/21 at 1350, Cardiac Intra-procedure Given 07/04/2021 1:58 PM CDT 1 mg Given 07/04/2021 1:50 PM CDT 1 mg documented in this encounter Active and Recently Administered Medications Times are shown in CDT. Scheduled Medication Order 07/02/2021 07/03/2021 07/04/2021 ceFAZolin (ANCEF) intermittent infusion 3 g (pre-mix) (COMPLETED ) 1345 (New Bag - Provider: Heriberto Gaston RN) Routine, 3 g, Intravenous, PRE-OP/PRE-AZ OCEDURE, Starting on Sun07/04/21 at 1200, For [...] (CANCEL ED) 1401 (Given - Provider: Heriberto Gaston RN) ONCE PRN, Starting on Sun07/04/21 at 1401, Cardiac Intra-procedu re fentaNYL (PF) (SUBLIMAZE) injection (CANCELED) 1350 (Given - Provider: Heriberto Gaston RN)1358 (Given - Provider: Heriberto Gaston, RN)1423 (Given - Provider: Heriberto Gaston RN) ONCE PRN, Administer over 3-5 Minutes, S tarting on Sun07/04/21 at 1350, Cardiac Intra-procedure lidocaine 1 % (CANCELED) 1401 (G iven - Provider: Heriberto Gaston RN) ONCE PRN, Starting on Sun07/04/21 at 1401, Cardiac Intra-procedu re midazolam (VERSED) injection (CANCELED) 1350 (Given - Provider: Heriberto Gaston RN)1358 (Given - Provider: Heriberto Gaston RN)1414 (Given - Provider: Heriberto Gaston RN) Administer over 2 Minutes, ONCE PRN, [...] , mild or moderate pain, Starting on Sun07/04/21 at 1506, Maximum acetaminophen dose from all sources= 75 mg/kg/day not to exceed 4 grams documented in this encounter Care Teams Smoke Inspector Relationship Specialty Start Date End Date Graham Licona MD PCP - General Family Medicine 06/30/21 [facility] [address] [place] [address] Timothy Smith MD Assigned Heart and Vascular 07/23/20 [address] [facility] [address] Provider [place] [id number] documented as of this encounter
--- OUTSIDE RECORDS SUMMARY | 2022-06-22 08:52 | XMS_ITS | Encounter Summary ---
:1940 Author Organization [facility] Address [address] [place] [address] Care Team Providers Name Role Phone Timothy Smith MD Unavailable Graham Licona MD Primary Care Provider Reason for Referral CV Testing (Routine) - Pending Review Specialty Diagnoses / Procedures Referred By Contact Refer red To Contact Diagnoses Cardiac pacemaker in situ Chris De Leon MD Procedures Cardiac Device Check - Remote (Post implant follow up) [address] [place] [id number] Referral ID Status Reason Start Date Expiration Date Visits V isits Requested Authorized [id number] Pending 07/05/2021 07/05/2022 1 1 Review V Testing (Routine) - Pending Review Specialty Diagnoses / Procedures Referred By Contact Refer red To Contact Diagnoses Cardiac pacemaker in situ Chris De Leon MD Procedures Cardiac Device Check - In Clinic (Post implant follow up) [address] [place] [id number] Referral ID Status Reason Start Date Expiration Date Visits V isits Requested Authorized [id number] Pending 07/05/2021 07/05/2022 1 1 Review Encounter Details Date Type Department Care Team Description 07/05/2021 [facility] Chris De Leon MD Cardiac pacemaker in [facility] [place] [address] situ (Primary Dx) [address] [place] [address] [place] [phone] Social History Tobacco Use Types Packs/Day Years [...] [address] [place] [id number] (Wo rk) 08/16/2022 Ancillary Procedure Cardiology Timothy Smith MD [address] [place] [id number] (Wo rk) 08/16/2022 Office Visit Cardiology Timothy Smith MD [address] [place] [id number] (Wo rk) Scheduled Orders Name Type Priority Associated Order Schedule Diagnoses Cardiac Device Implantable Cardiac Routine Cardiac pacemaker 3 Occurrences Check - In Clinic Device in situ starting 1 (Post implant until 07/05/20, 2 follow up) completed Cardiac Device Implantable Cardiac Routine Cardiac pacemaker 4 Occurrences Check - Remote Device in situ starting 01/2021 (Post implant until 07/05/20, 1 follow up) completed documented as of this encounter Results INTERROGATION DEVICE EVAL REMOTE ICD UP TO 90 (11/24/2021 1:06 PM EMERGENCY DETAIL DRIVER) Component Value Ref Test Analysis Performed Pathologis t Range Method Time At Signature Date Time [id number] [employer] Interrogation Session Implantable [employer] Pulse Generator [employer] Implantable D432 RESONATE EL [employer] Pulse Generator ICD Model Implantable [id number] [employer] Pulse Generator Serial Number Type Remote [facility] Interrogation Session Clinic Name [facility] Implantable Defibrillator [employer] Pulse Generator Type Implantable [id number] [employer] Pulse Generator Implant Date Implantable Lead [employer] Meat Hostess Implantable Lead 0272 Pitcher [employer] Model 4-Site S Implantable Lead [id number] [employer] Serial Number Implantable Lead [id number] [employer] Implant Date Implantable Lead Bipolar Lead [...] Capacitor Charge Reformation [employer] Type Capacitor Last [id number] [employer] Charge Date Time Capacitor Charge 9.1 s [employer] Time Brandon Statistic [employer] Date Time Start Brandon Statistic [employer] Date Time End Brandon Statistic 3 % [employer] RV Percent Paced Therapy 0 [employer] Statistic Recent Shocks Delivered Therapy 0 [employer] Statistic Recent Shocks Aborted Therapy 0 [employer] Statistic Recent ATP Delivered Therapy [employer] Statistic Recent Date Time Start Therapy [employer] Statistic Recent Date Time End Therapy 0 [employer] Statistic Total Shocks Delivered Therapy 0 [employer] Statistic Total Shocks Aborted Therapy 8 [employer] Statistic Total ATP Delivered Therapy [employer] Statistic Total Date Time End Episode [...] VT-1 [employer] Statistic Vendor Type Category Episode [id number] [employer] Statistic Recent Date Time Start Episode [id number] [employer] Statistic Recent Date Time End Episode [id number] [employer] Statistic Recent Date Time Start Episode [id number] [employer] Statistic Recent Date Time End Episode [id number] [employer] Statistic Recent Date Time Start Episode [id number] [employer] Statistic Recent Date Time End Episode [id number] [employer] Statistic Recent Date Time Start Episode [id number] [employer] Statistic Recent Date Time End Episode [id number] [employer] Statistic Recent Date Time Start Episode [id number] [employer] Statistic Recent Date Time End Episode APM-55 [employer] Identifier Episode Type Periodic EGM [employer] Category Episode Date [employer] Time Episode RVAT-160 [employer] Identifier Episode Type Other [employer] Category Episode Date [employer] Time Anatomical Region Laterality Modality Other Specimen (Source) Anatomical Collection Method Collection Time Re ceived Time Location / / Volume Laterality 11/23/2021 12:40 AM EMERGENCY DETAIL DRIVER Narrative 12/04/2021 10:04 AM EMERGENCY DETAIL DRIVER [employer] Resonate (S) ICD Remote Device Check MOLD STAMPER AND REPAIRER: 3 % ?? Mode: VVIR 50-130 ?? [...] Hinds MD CV CARDIAC SERVICES ORDERABL ES ICD DEVICE PROGRAMMING EVAL, DUAL LEAD ICD (08/24/2021 11:02 AM EMERGENCY DETAIL DRIVER) Component Value Ref Test Analysis Performed Pathologis t Range Method Time At Signature Date Time [id number] [employer] Interrogation Session Implantable [employer] Pulse Generator [employer] Implantable D432 RESONATE EL [employer] Pulse Generator ICD Model Implantable [id number] [employer] Pulse Generator Serial Number Type In Clinic [facility] Interrogation Session Clinic Name [facility] [employer] Implantable Defibrillator [employer] Pulse Generator Type Implantable [id number] [employer] Pulse Generator Implant Date Implantable Lead [employer] Meat Hostess Implantable Lead 0272 Pitcher [employer] Model 4-Site S Implantable Lead 912482 [employer] Serial Number Implantable Lead [id number] [employer] Implant Date Implantable Lead Bipolar Lead [...] 400 ms [employer] Detection Interval Lead Channel 453 ohm [employer] Impedance Value Lead Channel 0.7 V [employer] Pacing Threshold Amplitude Lead Channel 0.4 ms [employer] Pacing Threshold Pulse Width Battery Date [id number] [employer] Time of Measurements Battery Status Beginning of [employer] Service Battery 174 mo [employer] Remaining Longevity Battery 100 % [employer] Remaining Percentage Capacitor Charge Reformation [employer] Type Capacitor Last [id number] [employer] Charge Date Time Capacitor Charge 9.1 s [employer] Time Brandon Statistic [id number] [employer] Date Time Start Brandon Statistic [id number] [employer] Date Time End Brandon Statistic 4 % [employer] RV Percent Paced Therapy 0 [employer] Statistic Recent Shocks Delivered Therapy 0 [employer]IC Statistic Recent Shocks Aborted Therapy 8 [employer]IC Statistic Recent ATP Delivered Therapy [id number] [employer] Statistic Recent Date Time Start Therapy [id number] [employer] Statistic Recent Date Time End Therapy 0 [employer]IC Statistic Total Shocks Delivered Therapy 0 [employer]IC Statistic Total Shocks Aborted Therapy 8 [employer] Statistic Total ATP Delivered Therapy [id number] [employer] Statistic Total Date Time End Episode 0 [employer] Statistic Recent Count Episode Other [employer]IC Statistic Type Category Episode 417 [employer] Statistic Recent Count Episode VT [facility]IC Statistic Type Category Episode NSVT [employer] Statistic Vendor Type Category Episode 0 [employer] Statistic Recent Count Episode VF [facility] Statistic Type Category Episode VF [employer] Statistic Vendor Type Category Episode 4 [facility]IC Statistic Recent Count Episode VT [facility]TR[employer]IC Statistic Type Category Episode VT [facility] Statistic Vendor Type Category Episode 0 [facility]IC Statistic Recent Count Episode VT [facility]TR[employer]IC Statistic Type Category Episode VT-1 [facility] Statistic Vendor Type Category Episode [id number] [employer] Statistic Recent Date Time Start Episode [id number] [employer] Statistic Recent Date Time End Episode [id number] [employer] Statistic Recent Date Time Start Episode [id number] [employer] Statistic Recent Date Time End Episode [id number] [employer] Statistic Recent Date Time Start Episode [id number] [employer] Statistic Recent Date Time End Episode [id number] [employer] Statistic Recent Date Time Start Episode [id number] [employer] Statistic Recent Date Time End Episode [id number] [employer] Statistic Recent Date Time Start Episode [id number] [employer] Statistic Recent Date Time End Episode APM-11 [facility] Identifier Episode Type Periodic EGM [facility] Category Episode Date [id number] [employer] Time Anatomical Region Laterality Modality Other Specimen (Source) Anatomical Collection Method Collection Time Re ceived Time Location / / Volume Laterality 08/24/2021 11:09 AM EMERGENCY DETAIL DRIVER Narrative 09/06/2021 1:31 PM EMERGENCY DETAIL DRIVER [employer] Resonate (S) ICD Device Check Patient seen in clinic for device evalua tion and iterative programming. ?? MOLD STAMPER AND REPAIRER: 4% ?? Mode: VVIR 50-130 ?? Underlying Rhythm: Afib with V rates of 70-100 bpm. Patient is off Eliquis since June due to a GI bleed. ??Per notes patient was to have follow-up EGD done to reassess. Per kaelyn ent this was completed on 08/04/21 and patient stated results were all goo d See care everywhere for results. Heart Rate: Stable with good variability . ?? Sensing: WNL ?? Pacing Threshold: Stable ?? Impedance: Stable ?? Battery Status: Estimated at 15 years ?? Device Site: Healing well ? Ventricular Arrhythmia: 4 VT episodes th at required treatment all of which have been documented on as alerts. 2 of the episodes occurred on 08/04/21 at 1202 and 1204. EGMs show VT with V ra barbara of 200-210 for 7yay9xdx and 3kwa3tud. Both episodes received ATPx6 a nd was successful after the 6th attempt. VT episode on 08/01/21 at 0923 E GM shows VT for 7shf89pcb with V rates of 180-210bpm, ATPx7 was delivered and was successful after the 7th ATP attempt. The other episode of VT occ urred on 07/23/21 at 0832 EGM shows 4gmd2eup of VT with V rates of 200 bpm ATPx6 and was successful on the 6th attempt. Patient also had 418 ep isodes of NSVT logged with 12 EGMs available for review. EGMs show 4-26 beth ts of NSVT with V rates of 150-200 bpm. Patient denies symptoms with all ep isodes of VT and ATP therapy. Reviewed most recent episode of NSVT laila t occurred on 08/20/21 at 0955 and lasted 26 beats patient also denies symp toms with this episode. Per Dr Smith recommendations will continue to monitor for patient symptoms or shocks. ATP: 8 ?? Shocks: 0 ?? Setting Change: None ?? Care Plan: Remote device check scheduled for 11/24/20. Due to see EP ARTURO. Reviewed remote monitoring and follow up plan. Reviewed that he should call the device clinic if he has symptom s with the episodes of VT/NSVT. Patient voiced understanding. Will route message to Dr Smith regarding when to restart Eliquis. KF RN I have reviewed and interpreted the agustín ce interrogation, settings, programming and nurse's summary. The dev ice is functioning within normal device parameters. I agree with the curr ent findings, assessment and plan. Chris Hinds MD CV CARDIAC SERVICES ORDERABL ES ICD DEVICE PROGRAMMING EVAL, SINGLE LEAD ICD (07/14/2021 12:46 PM CDT) Component Value Ref Test Analysis Performed Pathologis t Range Method Time At Signature Date Time [id number] [employer] Interrogation Session Implantable [employer] Pulse Generator [employer] Implantable D432 RESONATE EL [employer] Pulse Generator ICD Model Implantable [id number] [employer] Pulse Generator Serial Number Type In Clinic [facility] Interrogation Session Clinic Name [facility] [facility] Implantable Defibrillator [employer] Pulse Generator Type Implantable [id number] [employer] Pulse Generator Implant Date Implantable Lead [employer] Meat Hostess Implantable Lead 0272 Pitcher [employer] Model 4-Site S Implantable Lead [id number] [employer] Serial Number Implantable Lead [id number] [employer] Implant Date Implantable Lead Bipolar Lead [...] VF [employer] Vendor Type Category Zone Setting 273.0 ms [employer] Detection Interval Zone Setting VT [employer] Type Category Zone Setting VT [employer] Vendor Type Category Zone Setting 353.0 ms [employer] Detection Interval Zone Setting VT [employer] Type Category Zone Setting VT-1 [employer] Vendor Type Category Zone Setting 400.0 ms [employer] Detection Interval Lead Channel 450.0 ohm [employer] Impedance Value Lead Channel 12.8 mV [employer] Sensing Intrinsic Amplitude Lead Channel 0.9000 V [employer] Pacing Threshold Amplitude Lead Channel 0.4 ms [employer] Pacing Threshold Pulse Width Battery Status Beginning of [employer] Service Capacitor Charge Reformation [employer] Type Capacitor Last SunJul 04 [employer] Charge Date Time 08:56:22 CDT 2020 Capacitor Charge 9.065 [employer] Time Capacitor Charge Shock [employer] Type Capacitor Charge 0 s [employer] Time Capacitor Charge 0 J [employer] Energy Therapy 0 [employer]ONIC Statistic Total Shocks Delivered Therapy 0 MEDTRONIC Statistic Total Shocks Aborted Therapy 0 MEDTRONIC Statistic Total ATP Delivered Therapy [id number] [employer] Statistic Total Date Time End Therapy 0 [employer]IC Statistic Recent Shocks Delivered Therapy 0 [employer]IC Statistic Recent Shocks Aborted Therapy 0 [employer] Statistic Recent ATP Delivered Therapy SunJul 04 [employer] Statistic Recent 11:45:37 CDT 2020 Date Time Start Therapy [id number] [employer] Statistic Recent Date Time End Episode 61 [employer]IC Statistic Total Count Episode VT [employer] Statistic Type Category Episode NSVT [employer] Statistic Vendor Type Category Episode 0 [employer] Statistic Total Count Episode VF [employer]IC Statistic Type Category Episode VF [employer] Statistic Vendor Type Category Episode 0 [employer]IC Statistic Total Count Episode [id number]_MONITOR [facility] Statistic Type Category Episode [id number] [employer] Statistic Total Date Time End Episode [id number] [employer] Statistic Total Date Time End Episode [id number] [employer] Statistic Total Date Time End Episode 51 [employer]IC Statistic Recent Count Episode VT [facility]IC Statistic Type Category Episode NSVT [employer] Statistic Vendor Type Category Episode 0 [employer]IC Statistic Recent Count Episode VF [employer]IC Statistic Type Category Episode VF [employer] Statistic Vendor Type Category Episode 0 [employer]IC Statistic Recent Count Episode [id number]_MONITOR [employer] Statistic Type Category Episode SunJul 04 [employer] Statistic Recent 11:45:37 CDT 2020 Date Time Start Episode [id number] [employer] Statistic Recent Date Time End Episode SunJul 04 [employer] Statistic Recent 11:45:37 CDT 2020 Date Time Start Episode [id number] [employer] Statistic Recent Date Time End Episode SunJul 04 [employer] Statistic Recent 11:45:37 CDT 2020 Date Time Start Episode [id number] [employer] Statistic Recent Date Time End Anatomical Region Laterality Modality Other Specimen (Source) Anatomical Collection Method Collection Time Re ceived Time Location / / Volume Laterality 07/14/2021 11:37 AM CDT Narrative 07/18/2021 1:08 PM CDT Integrien ??7 Day Post Upgrade to ICD and PPM removal Device Check Patient seen in clinic for device evalua tion and iterative programming. MOLD STAMPER AND REPAIRER: 3 % ?? Mode: VVIR 50-130 ?? Underlying Rhythm: Afib with irregular V S in the 50-140's. Patient off of Eliquis and GI bleed in June. ?? Heart Rate: Stable with V rates all over . Sensing: wnl ?? Pacing Threshold: stable ?? Impedance: stable ?? Battery Status: 15 years ?? Incision/Complications: Patient had sumanth chikis steri-strips yesterday 07/13/2021 and he has a strong skin reac tion to the adhesive tap. Incision site from device placed is well approxim ated and healing well. However patient has large tape burn and irritate d skin below incision line. See epic encounter for documentation of tape reaction. Reviewed signs of infection and when to call the clinic fo r entire chest area. Patient stated he understood. ? Ventricular Arrhythmia: 51 NSVT episodes logged since implant on 07/04/2021. 2 EGM's available showing bu rst of NSVT ??as reviewed by Dr. De Leon Episodes logged lasting 12 seconds with average V rates between 133-141. Patient did state he is taking his Toprol-XL 50mg daily as prescribed. Will send update FYI to Dr. Smith for review once he returns as patient is asymptomatic. ATP: 0 ?? Shocks: 0 ?? Setting Change: None ?? Care Plan: Follow-up in six weeks with i n-clinic device check. Reviewed activity restrictions, incision care, wh en to call the clinic, and what to do in the event patient gets shocked. Re viewed home monitoring again and will send FYI update to Dr. Smith and Saadia Montenegro regarding patient's irregular and fast V rates as well as fo llow-up regarding anticoagulation status. LEXY, RN ?? I have reviewed and interpreted the agustín ce interrogation, settings, programming and nurse's summary. The dev ice is functioning within normal device parameters. I agree with the curr ent findings, assessment and plan. Chris Hinds MD CV CARDIAC SERVICES ORDERABL ES documented in this encounter Visit Diagnoses Diagnosis Cardiac pacemaker in situ - Primary Cardiac pacemaker in situ Cardiac pacemaker in situ Cardiac pacemaker in situ documented in this encounter Care Teams Rags Laborer Relationship Specialty Start Date End Date Graham Licona MD PCP - General Family Medicine 06/30/21 [facility] [address] [place] [address] Timothy Smith MD Assigned Heart and Vascular 07/23/20 [address] Provider [place] [id number] documented as of this encounter
--- OUTSIDE RECORDS SUMMARY | 2022-06-22 08:52 | XMS_ITS | Encounter Summary ---
:1940 Author Organization [facility] Address [address] [place] [address] Care Team Providers Name Role Phone Timothy Smith MD Unavailable Graham Licona MD Primary Care Provider Encounter Details Date Type Department Care Team Description 07/14/2021 Documentation Only [facility] Thao Alcocer, Clinic Patt RN [address] [facility] [address] [place] [phone] Social History Tobacco Use Types Packs/Day Years [...] / COVID-19? documented as of this encounter Progress Notes Thao Alcocer, RN - 07/14/2021 1:59 PM CDT Images from the original note were not included. Patient had 7 day in-clinic device check done today, 07/14/2021 following upgrade from PPM to signalchamber ICD device. During device interrogation patient noted to have frequent PVC's and what appeared to be short bursts of NSVT episodes. Of note patient has had a total of 51 NSVT episodes logged since implant on 07/04/2021. 2 EGM's available to view which were reviewed with Dr. De Leon who stated logged episodes are NSVT episodes. Patient is asymptomatic with episodes and verified he is taking his Toprol-XL 50mg daily as prescribed. Will route this update as an FYI to Dr. Smith for review and recommendation if needed. Of note patient had additional skin problems noted from tape and adhesive sensitivity. Photo taken as a precaution. Reviewed incision care and signs of infection with patient. Patient aware to call theclinic with any concerns. Thao Alcocer RN - 07/14/2021 1:59 PM CDT Called patient and left voicemail asking for a call back to review anticoagulation status and updatepatient on Dr. Smith's response regarding logged NSVT episodes. During in-clinic device check on 07/14/2021 patient was not taking his Eliquis due to a GI bleed he had on , 06/06/21. Per notes patient was to have follow-up EGD done to reassess at during in-clinic check patient did not have anything scheduled yet. (see Saadia Montenegro's note from 06/30/2021) Sintia Muhammad RN - 07/14/2021 1:59 PM CDT Received call back from patient. Reviewed Dr. Smith's recommendations to continue to monitor NSVT episodes at this time as patient is asymptomatic and has chronic renal insufficiency. Also notified patient that if he were to develop symptoms, he should contact the device clinic to let us know. Patient verbalized understanding and agreement with plan. Patient also stated that he has his follow-up EGD scheduled for early August (he thinks on 08/07/21). He is aware that GI will likely have to clear him to restart anticoagulants. Patient will call if he has any further questions. SIENNA Hatch documented in this encounter Miscellaneous Notes Telephone Encounter - Timothy Smith MD - 07/19/2021 11:47 AM CDT Observation only because pt has no symptoms and has chronic renal insufficiency. documented in this encounter Plan of Treatment Upcoming Encounters Date Type Specialty Care Team Description 06/26/2022 Ancillary Procedure Cardiology Seng Canchola MD [address] [place] [id number] (Wo rk) 08/16/2022 Ancillary Procedure Cardiology Timothy Smith MD [address] [place] [id number] (Wo rk) 08/16/2022 Office Visit Cardiology Timothy Smith MD [address] [place] [id number] (Wo rk) documented as of this encounter Visit Diagnoses Not on filedocumented in this encounter Care Teams Car Mover Relationship Specialty Start Date End Date Graham Licona MD PCP - General Family Medicine 06/30/21 [facility] [address] [place] [address] Timothy Smith MD Assigned Heart and Vascular 07/23/[address] Provider [place] [address] documented as of this encounter
--- OUTSIDE RECORDS SUMMARY | 2022-06-22 08:52 | XMS_ITS | Encounter Summary ---
:1940 Author Organization [place] Address [address] [place] [address] Care Team Providers Name Role Phone Timothy Smith MD Unavailable Graham Licona MD Primary Care Provider Reason for Visit Reason Onset Date Comments Implantable Devices 07/25/2021 Alert for VT requiri ng ATP Encounter Details Date Type Department Care Team Description 07/25/2021 Telephone [facility] Sintia Muhammad, Impl antable Devices [facility] RN (Alert fo r VT requiring Heart Care ATP) [address] [facility] [address] [place] [phone] Social History Tobacco Use Types Packs/Day [...] Telephone Encounter - Sintia Muhammad, RN - 07/25/2021 1:05 PM CDT Called and spoke with patient who stated he is unaware of when the episodes are happening and cannotrecall symptoms at the time of the episode on 07/23/21 requiring ATP. Patient stated he is a little tense hearing that he has been having these episodes, but has not been symptomatic with them. Reassured patient that his device did exactly what it was intended to do for the faster rhythm on the . Encouraged him to try and go about his normal activities as much as possible and reassured him that Dr. Smith is aware of these episodes and does not want to make any changes to his medications or treatment plan at this time. Patient was appreciative of call and will call with any questions. SIENNA Hatch Telephone Encounter - Timothy Smith MD - 07/25/2021 11:23 AM CDT No plan change for now. Telephone Encounter - Sintia Muhammad RN - 07/25/2021 10:14 AM CDT Images from the original note were not included. Remote ICD alert for ATP delivered. Since 07/14/21, patient has had: - 126 NSVT episodes logged with 4 EGMs available. EGMs show 9-14 beats NSVT in the 130-160s. - 1 VT episode logged on 07/23/21 at 0832. EGM shows NSVT lasting 1m7s with v- rates in the 200s. ATPx6 was delivered with rhythm breaking after the 6th ATP attempt (the first 5 ATP episodes have a coupling interval of 97% and 1 burst, implying this was set to delay therapy and the 6th ATP attempt is the first true therapy delivered). See below for EGM and device settings. Called and left message for patient requesting a call back to see if he had any symptoms at time of episode (lightheadedness, dizziness, etc.). Device clinic phone number provided. Pt is on [employer]. Dr. Smith was previously notified for frequent NSVT episodes after 1 week check on 07/14/21 and recommended observation only at that time due to patient being asymptomatic and having a hx of chronic renalinsufficiency. Will route update to Dr. Smith re: continued NSVT episodes and ATP therapy received. SIENNA Hatch ICD Therapy Settings: VT episode requiring ATPx6: documented in this encounter Plan of Treatment Upcoming Encounters Date Type Specialty Care Team Description 06/26/2022 Ancillary Procedure Cardiology Seng Canchola MD [address] [place] [place] [id number] (Wo rk) 08/16/2022 Ancillary Procedure Cardiology Timothy Smith MD [address] [place] [id number] (Wo rk) 08/16/2022 Office Visit Cardiology Timothy Smith MD [address] [place] [id number] (Wo rk) documented as of this encounter Visit Diagnoses Not on filedocumented in this encounter Care Teams Community Health Counselor Relationship Specialty Start Date End Date Graham Licona MD PCP - General Family Medicine 06/30/21 [facility] [address] [place] [id number] Timothy Smith MD Assigned Heart and Vascular 07/23/[address] Provider [place] [id number] documented as of this encounter
--- OUTSIDE RECORDS SUMMARY | 2022-06-22 08:52 | XMS_ITS | Encounter Summary ---
:1940 Author Organization [place] Address [address] [place] [address] Care Team Providers Name Role Phone Timothy Smith MD Unavailable Graham Licona MD Primary Care Provider Encounter Details Date Type Department Care Team Description 08/24/2021 Travel Social History Tobacco Use Types Packs/Day Years Used Date Never Smoker Smokeless Tobacco: Never Used Alcohol Use Standard Drinks/Week Comments No 0 (1 standard drink = 0.6 oz pure alcoho l) Sex Assigned at Date Recorded Not on file COVID-19 Exposure Response Date Recorded In the last month, have you been in contact with No / Unsure 08/24/2021 10:48 AM [employer]IC someone who was confirmed or suspected to have Coronavirus / COVID-19? documented as of this encounter Plan of Treatment Upcoming Encounters Date Type Specialty Care Team Description 06/26/2022 Ancillary Procedure Cardiology Seng Canchola MD [address] [place] [address] [place] [id number] (Wo rk) 08/16/2022 Ancillary Procedure Cardiology Timothy Smith MD [address] [place] [id number] (Wo rk) 08/16/2022 Office Visit Cardiology Timothy Smith MD [address] [place] [phone] (Wo rk) documented as of this encounter Visit Diagnoses Not on filedocumented in this encounter Care Teams Tai Chi Instructor Relationship Specialty Start Date End Date Graham Licona MD PCP - General Family Medicine 06/30/[address] [facility] [address] [place] [address] Timothy Smith MD Assigned Heart and Vascular 07/23/20 [address] Provider [place] [id number] documented as of this encounter
--- OUTSIDE RECORDS SUMMARY | 2022-06-22 08:52 | XMS_ITS | Encounter Summary ---
:1940 Author Organization [place] Address [address] [place] [address] Care Team Providers Name Role Phone Timothy Smith MD Unavailable Graham Licona MD Primary Care Provider Reason for Visit Reason Onset Date Comments Implantable Devices 08/02/2021 Encounter Details Date Type Department Care Team Description 08/02/[address] [facility] Sandrine Whitman Implantable Devices [facility] Heart [address] [place] [phone] Social History Tobacco Use Types [...] Notes Telephone Encounter - Aliza Whitman - 08/02/2021 3:45 PM CDT Patient returned phone call to device clinic. Reviewed date/time of episode on 08/01/21. Patient denied symptoms at time of episode that required ATP. Reviewed with patient that Dr Smith is aware and at this time we will continue to monitor. Encouraged patient to call device clinic with any symptoms. Telephone Encounter - Timothy Smith MD - 08/02/2021 10:50 AM CDT Thank you for the update. Stick with the previous plan: no intervention unless he has symptoms or shocks from VT. Telephone Encounter - Aliza Whitman - 08/02/2021 8:47 AM CDT Images from the original note were not included. Remote ICD alert for ATP delivered. Since 07/24/21(last alert for ATP, see note from 07/25/21 at 1014 ). Patient has had 43 NSVT episodes logged with 4 EGMs available. EGMs show 4-13 beats NSVT with V rates of 150-170bpm. With 10 of the episodes occurring on 08/01/2021. Patient had 1 VT episode logged on 08/01/2021 at 0923. EGM shows VT lasting [id number] with V rates [id number]. ATPx7 was delivered with rhythm breaking after the 7th ATP attempt. Left message with patient's (Prachi) and asked that patient return call to device clinic. Wifestated that patient felt tired yesterday. Asked that she have Don call device clinic to discuss symptoms. Patient is on Toprol XL 50mg daily. Dr Smith was notified of previous ATP episode on 07/24/21 and at that time no change was recommended. Will route message to Dr Smith to inform of new episodes. documented in this encounter Plan of Treatment Upcoming Encounters Date Type Specialty Care Team Description 06/26/2022 Ancillary Procedure Cardiology Seng Canchola MD [address] [place] [place] [phone] (Wo rk) 08/16/2022 Ancillary Procedure Cardiology Timothy Smith MD [address] [place] [phone] (Wo rk) 08/16/2022 Office Visit Cardiology Timothy Smith MD [address] [place] [phone] (Wo rk) documented as of this encounter Visit Diagnoses Not on filedocumented in this encounter Care Teams Allergy And Immunology Specialist Relationship Specialty Start Date End Date Graham Licona MD PCP - General Family Medicine 06/30/21 [facility] [address] [place] [address] Timothy Smith MD Assigned Heart and Vascular 07/23/20 [address] Provider [place] [id number] documented as of this encounter
--- OUTSIDE RECORDS SUMMARY | 2022-06-22 08:52 | XMS_ITS | Encounter Summary ---
:1940 Author Organization [place] Address [address] [place] [address] Care Team Providers Name Role Phone Slava Hernandez PA-C Primary Care Provider Timothy Smith MD Unavailable Encounter Details Date Type Department Care Team Description 04/28/2021 Telephone [facility] Keyshawn Myers RN [facility] [id number] [place] [phone] Social History Tobacco Use Types [...] Telephone Encounter - Timothy Smith MD - 04/28/2021 10:31 AM CDT Just continue current medical therapy. May consider po amiodarone if he has symptomatic VT. Telephone Encounter - Kitty Myers RN - 04/28/2021 10:25 AM CDT Spoke with patient. He was scheduled for an ICD implant (upgrade from ppm to ICD) and states that hehas changed his mind and does not want to have an ICD placed. Patient states that he does not have any questions about it. He is just not interested. Will update Dr. Smith. documented in this encounter Plan of Treatment Upcoming Encounters Date Type Specialty Care Team Description 06/26/2022 Ancillary Procedure Cardiology Seng Canchola MD [address] [place] [address] (Wo rk) 08/16/2022 Ancillary Procedure Cardiology Timothy Smith MD [address] [place] [address] (Wo rk) 08/16/2022 Office Visit Cardiology Timothy Smith MD [address] [place] [address] (Wo rk) documented as of this encounter Visit Diagnoses Not on filedocumented in this encounter Care Teams Internal Medicine Physician Relationship Specialty Start Date End Date Slava Hernandez, PCP - General Physician Other Sales Support Worker 07/02/1806/02 PA-C [facility] [address] [place], [place] [id number] Timothy Smith MD Assigned Heart and 07/23/[address] Vascular Provider [place]ally [place] [id number] documented as of this encounter
--- OUTSIDE RECORDS SUMMARY | 2022-06-22 08:52 | XMS_ITS | Encounter Summary ---
:1940 Author Organization [facility] [place] Address [address] [place] [address] Care Team Providers Name Role Phone Timothy Smith MD Unavailable Graham Licona MD Primary Care Provider Reason for Visit Reason Comments H & P For ICD upgrade Consultation (Routine) - Pending Review Specialty Diagnoses / Procedures Referred By Contact Refer red To Contact Diagnoses Sustained VT (ventricular tachycardia) Cardiac pacemaker in situ [facility] [address] [place] [id number] Referral ID Status Reason Start Date Expiration Date Visits V isits Requested Authorized [id number] Pending 06/23/2021 06/23/2022 1 1 Review Encounter Details Date Type Department Care Team Description 06/30/2021 Office Visit [facility] Tammy Montenegro [place] (ventricular tachycardia) (H); [facility] Patt Torres PA-C Cardiac pacemaker in situ; [address] Type 2 diabetes mellitus with complication (H); [address] Persistent atrial fibrillation (H) [place] [phone] [place] [id number] (Wo rk) Social History Tobacco Use Types Packs/Day Years Used Date Never Smoker Smokeless Tobacco: Never Used Alcohol Use Standard Drinks/Week Comments No 0 (1 standard drink = 0.6 oz pure alcoho l) Sex Assigned at Date Recorded Not on file documented as of this encounter Last Filed Vital Signs Vital Sign Reading Time Taken Comments Blood Pressure 131/71 06/30/2021 7:25 AM CDT Pulse 83 06/30/2021 7:25 AM CDT Temperature - - Respiratory Rate - - Oxygen Saturation 95% 06/30/2021 7:25 AM CDT Inhaled Oxygen Concentration - - Weight 124.7 kg (275 lb) 06/30/2021 7:25 AM CDT Height 174 cm (5' 8.5) 06/30/2021 7:25 AM CDT Body Mass Index 41.21 06/30/2021 7:25 AM CDT documented in this encounter Patient Instructions Patient InstructionsTammy Montenegro PA-C - 06/30/2021 7:30 AM CDT Don - it was nice to see you again today! 1. Reviewed your recent hospitalization at [facility]. I'll look into this more and let Dr. Smith know! PLAN: 1. Upgrade to defibrillator on 07/04 o COVID testing 07/01. Limit contacts between testing and procedure o Stay off of Eliquis o Hold Lasix 40, Glipizide 5 mg & Metformin 1000 mg AM of procedure o Arrive @ 1200 on 07/04/2021 for 1400 procedure o No solid food starting at midnight; OK to have clear liquids morning of procedure until 8 AM, thennothing to eat/drink after 0800. [phone] documented in this encounter Progress Notes Tammy Montenegro PA-C - 06/30/2021 7:30 AM CDT [facility] I had the pleasure of seeing Odilon when he came for preoperative evaluation prior to planned ICD implantation. This [address] Smith for his history of: 1. Ventricular Tachycardia; low-nl EF - noted on device interrogations despite increasing BB therapy 2. Atrial flutter s/p CTI ablation 01/[address] Smith 3. Persistent AFib, initially on amiodarone therapy. He underwent DC cardioversion 05/2018 which was only briefly successful. Subsequently, a rate control/anticoagulation strategy was recommended and amiodarone was discontinued. 4. Chronic anticoagulation with Eliquis for CHADSVASc of 4 (diabetes, CAD, age) 5. 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 He did not ever have an AV node ablation. 6. 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 We believe he had a VG -OM, VG-RCA, VG-LAD and VG-D at that time. Angiogram01/2016 showed patent VGs! 7. 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 8. Obstructive sleep apnea, type 2 diabetes, obesity 9. Recent GI bleed/bleeding ulcer - admitted [facility] 06/04-03/2021. Two units pRBCs given. EGD reportedly showed non-bleeding gastric ulcer (not currently bleeding). Repeat EGD in 4 weeks (early Jul) rec'd. I saw Guillermo back in 11/2018 at which time he was c/o increasing SOB and edema. Repeat echo showed EF dropped slightly to ~40%. Lasix was adjusted and sxs improved. In 01/2021 he was noted to have sustained VT, lasting up to 73 seconds a/w dizziness and palpitations. Metoprolol was increased to 50 mg daily. 24 hour Holter continued to show episodes of VT and frequent PVCs. When Dr. Smith saw him 04/26 he rec'd ICD implantation for primary prevention. He shared with me that he was recently admitted to [facility] d/t dark tarry stools 06/02-01/2021 (?). He had episodes of hypotension. He required 2 units pRBCs, he believes. Eliquis and Celebrexwere stopped. He was started on cephalexin for LLE cellulitis and Carafate for his stomach ulcer. Hgb on discharge 06/05 appears it was 9.8 g/dL. It does not appear it has been checked since then. He hasnot seen GI since then. Has been treated for L LE cellulitis. No fevers/chills. Interval History: Guillermo is still weak after his hospitalization but much better. Has had no furhter episodes of melena or hematochezia. He thinks he got 2 units of pRBCs. We'll work on getting records from [facility]. No issues with palpitations. No dizziness, lightheadedness since the 2 that prompted him to agree toICD implantation this summer. No syncope/falls. No c/o CP. Thinks breathing is stable. He's not taking Celebrex anymore (since hospital discharge) and aches b/c of this, but not anything he wasn't expecting. ADDENDUM 06/30/2021 REVIEWED NOTES FROM [facility]. Pt admitted 06/03- 03/2021 for acute GI bleeding with black coffee-ground emesis and melena. Continued to have large melanotic stools in hospital. Eliquis held and given 2 units pRBCs. Was given Kcentra and EGD done, showing gastric ulcer (not cur rently bleeding but previous bleeding). Initial Hgb 06/03 was 12.9 g/dL but dropped to anderson of 9.9g/dL, it appears. tarted on Carafate and omeprazole. OP EGD rec'd 4 weeks. VITALS: Vitals: BP 131/71 (BP Location: Right arm, Cuff Size: Adult Regular) Pulse 83 Ht 1.74 m (5' 8.5) Wt 124.7 kg (275 lb) SpO2 95% BMI 41.21 kg/m?? Diagnostic Testing: EKG 03/2021 showed AFib 92 bpm. Frequent PVCs. RBBB Dino Sci PPM 05/2021, showed 30% ASSEMBLER FOR PULLER OVER MACHINE in VVIR 60/130. 2 HVR with EGMs showing AFib/RVR to 35seconds Echocardiogram 03/2021 - EF 50-55%. Mod decreased RVSF. MARTA (mod). Mod MAC with trace MR. Trace TR with RVSP 36+RAP. RA pressure 8mmHg. Trivial aortic sclerosis with trace-mild AI. Root OK. asc ao mildly dilated 3.7 cm Angiogram 01/2016 - patent bypass grafts Plan: Get [facility] records re: GI Bleed ICD upgrade as planned Assessment/Plan: 1. VT, PVCs. EF 50-55% 03/2021 ??? As above, at risk for SCD given VT seen on PPM checks and Holter despite increased BB therapy. ??? Poor candidate for increasing BB given borderline BPs seen in past ??? 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 Today, I directly discussed with the patient the rationale for ICD placement, alternative therapies,technical aspects of the surgical procedure, risks/benefits of therapy and need for long-term follow-up in the Device Clinic. An educational handout regarding ICD therapy was provided today and reviewed [id number]. The main points addressed in the handout were further discussed today. All questions/concerns were addressed. After a good discussion, the patient verbalized understanding and has agreed to proceed with ICD implantation. ??? [place] Decision Making Aid PLAN: ??? ICD upgrade o COVID testing 07/01. Limit contacts between testing and procedure o Continue to HOLD Eliquis. Dr. Smith had rec'd x 2 days prior, but he's been off of this all month post GI Bleed o Hold Lasix 40, Glipizide 5 mg & Metformin 1000 mg AM of procedure o Arrive @ 1200 on 07/04/2021 for 1400 procedure o No solid food starting at midnight; OK to have clear liquids morning of procedure until 8 AM, thennothing to eat/drink after 0800. ??? Dr. Smith notes may require Amiodarone therapy if VT persists on device interrogations ??? No evidence of active infection in legs at this time (had cephalexin x 7 days given early Jun @[facility]) 2. CAD ??? S/p 4 v CABG 1986 with patent VGs on cath 2015 ??? Remains on BB, statin. LDL 61 mg/dL 11/2019 ??? Denies CP ??? No ASA d/t Eliquis therapy. PLAN: ??? Continue current meds 3. Recent GI Bleed ??? Reportedly had 2 units pRBCs and was placed on Carafate. He's no longer on this based on follow-up note from PCP in [facility] ??? No recurrent BRBPR/melena PLAN: ??? Will work on getting [facility] documents ??? CBC will be completed at time of ICD upgrade ??? Will d/w Dr. Smith given need to restart Eliquis following ICD. Apparently, repeat EGD was to be set up 4 weeks Saadia Montenegro PA-C, MSPAS No orders of the defined types were placed in this encounter. Orders Placed This Encounter Medications ??? atorvastatin (LIPITOR) 20 MG tablet Sig: Take 20 mg by mouth daily ??? loratadine (CLARITIN) 10 MG tablet Sig: Take 10 mg by mouth daily ??? glimepiride (AMARYL) 2 MG tablet Sig: Take 2 mg by mouth 2 times daily ??? biotin 1000 MCG TABS tablet Sig: Take 1,000 mcg by mouth daily ??? omeprazole (PRILOSEC) [address] capsule Sig: Take 20 mg by mouth daily ??? metFORMIN (GLUCOPHAGE) 500 MG tablet Sig: Take 2 tablets (1,000 mg) by mouth 2 times daily (with meals) ??? apixaban ANTICOAGULANT (ELIQUIS ANTICOAGULANT) 5 MG tablet Sig: Take 1 tablet (5 mg) by mouth 2 times daily ON HOLD 06/2021 Dispense: 180 tablet Refill: 3 Medications Discontinued During This Encounter Medication Reason ??? pravastatin (PRAVACHOL) 80 MG tablet Stopped by Patient ??? metFORMIN (GLUCOPHAGE) 500 MG tablet ??? celecoxib (CELEBREX) 200 MG capsule Discontinued by another Health Care Provider ??? apixaban ANTICOAGULANT (ELIQUIS ANTICOAGULANT) 5 MG tablet Encounter Diagnoses Name Primary? Sustained VT (ventricular tachycardia) (H) ??? Cardiac pacemaker in situ ??? Type 2 diabetes mellitus with complication (H) ??? Persistent atrial fibrillation (H) CURRENT MEDICATIONS: Current Outpatient Medications Medication Sig Dispense Refill ??? ACYCLOVIR 400 MG OR TABS 1 TABLET 3 TIMES DAILY-as need for Cold sores 30 6 ??? apixaban ANTICOAGULANT (ELIQUIS ANTICOAGULANT) 5 MG tablet Take 1 tablet (5 mg) by mouth 2 timesdaily ON HOLD 06/2021 180 tablet 3 ??? atorvastatin (LIPITOR) 20 MG [...] mg by mouth 2 times daily ??? GLIPIZIDE PO Take 5 mg by mouth 2 times daily (before meals) ??? loratadine (CLARITIN) 10 MG tablet Take 10 mg by mouth daily ??? metFORMIN (GLUCOPHAGE) 500 MG tablet Take 2 tablets (1,000 mg) by mouth 2 times daily (with meals) ??? metoprolol succinate ER (TOPROL-XL) 50 MG [...] ??? tamsulosin (FLOMAX) 0.4 MG capsule Take 1 capsule (0.4 mg) by mouth daily 90 capsule 4 ALLERGIES Allergies Allergen Reactions ??? No Known Allergies ??? Pravastatin Rash Review of Systems: Skin: Negative Eyes: Positive for glasses ENT: Negative for Respiratory: Positive for sleep apnea;CPAP Cardiovascular: Negative for;palpitations;chest pain lightheadedness;fatigue;Positive for;edema;exercise intolerance Gastroenterology: Positive for melena;hematochezia Genitourinary: Negative Musculoskeletal: Positive for back pain;neck pain Neurologic: Negative Psychiatric: Negative Heme/Lymph/Imm: Positive for easy bruising Endocrine: Positive for diabetes Physical Exam: Vitals: BP 131/71 (BP Location: Right arm, Cuff Size: Adult Regular) Pulse 83 Ht 1.74 m (5' 8.5) Wt 124.7 kg (275 lb) SpO2 95% BMI 41.21 kg/m?? Constitutional: cooperative, alert and oriented, well developed, well nourished, in no acute distress morbidly obese uses a walker Skin: warm and dry to the touch Head: normocephalic, no masses or lesions Eyes: pupils equal and round wear eye glasses ENT: no pallor or cyanosis Neck: JVP normal JVP elevated Chest: clear to auscultation Bibasilar crackles Cardiac: no murmurs, gallops or rubs detected irregularly irregular rhythm Abdomen: abdomen soft obese distended and firm Vascular: pulses full and equal pulses below the femoral arteries are diminished right radial artery;2+ left radial artery;2+ Extremities and Back: no deformities, clubbing, cyanosis, erythema observed compression stockings Neurological: no gross motor deficits PAST MEDICAL HISTORY: Past Medical History: Diagnosis [...] Past Surgical History: Procedure Laterality Date ??? C CABG, ARTERY-VEIN, FOUR 1985 ??? CATHETER, ABLATION 01/2013 Atrial flutter ??? CHOLECYSTECTOMY ??? EP PACEMAKER 02/04/2016 SSS ??? HC LEFT HEART CATHETERIZATION 01/2012 see report ??? HERNIA REPAIR ??? ORTHOPEDIC SURGERY ??? rotator cuff ??? TESTICLE SURGERY ??? VASECTOMY FAMILY HISTORY: Family History Problem Relation Age of Onset ??? Heart Disease Father ??? Obesity Paternal Grandmother ??? Obesity Daughter ??? Obesity Son SOCIAL HISTORY: Social History Socioeconomic History ??? Marital status: Spouse name: None ??? Number of children: None ??? Years of education: None ??? Highest education level: None Occupational History ??? None Tobacco Use ??? Smoking status: Never Smoker ??? Smokeless tobacco: Never Used Substance and Sexual Activity ??? Alcohol use: No ??? Drug use: No ??? Sexual activity: None Other Topics Concern ??? Parent/sibling w/ CABG, PR or angioplasty before 65F 55M? No ??? Service Not Asked ??? Blood Transfusions Not Asked ??? Caffeine Concern Yes Comment: 2 cups coffe ??? Occupational Exposure Not Asked ??? Hobby Hazards Not Asked ??? Sleep Concern No ??? Stress Concern No ??? Weight Concern Not Asked ??? Special Diet No ??? Back Care Not Asked ??? Exercise No ??? Bike Helmet Not Asked ??? Seat Belt Not Asked ??? Self-Exams Not Asked Social History Narrative ??? None Social Determinants of Health Financial Resource Strain: ??? Difficulty of Paying Living Expenses: Food Insecurity: ??? Worried About Running Out of Food in the Last Year: ??? Ran Out of Food in the Last Year: Transportation Needs: ??? Lack of Transportation (Medical): ??? Lack of Transportation (Non-Medical): Physical Activity: ??? Days of Exercise per Week: ??? Minutes of Exercise per Session: Stress: ??? Feeling of Stress : Social Connections: ??? Frequency of Communication with Friends and Family: ??? Frequency of Social Gatherings with Friends and Family: ??? Attends Orthodox Services: ??? Active Member of Clubs or Organizations: ??? Attends Club or Organization Meetings: ??? Marital Status: Intimate Partner Violence: ??? Fear of Current or Ex-Partner: ??? Emotionally Abused: ??? Physically Abused: ??? Sexually Abused: documented in this encounter Plan of Treatment Upcoming Encounters Date Type Specialty Care Team Description 06/26/2022 Ancillary Procedure Cardiology Seng Canchola MD [address] [place] [id number] (Wo rk) 08/16/2022 Ancillary Procedure Cardiology Timothy Smith MD [address] [place] [id number] (Wo rk) 08/16/2022 Office Visit Cardiology Timothy Smith MD [address] [place] [id number] (Wo rk) documented as of this encounter Visit Diagnoses Diagnosis Sustained VT (ventricular tachycardia) Paroxysmal ventricular tachycardia Cardiac pacemaker in situ Type 2 diabetes mellitus with complicati on (H) Persistent atrial fibrillation (H) Atrial fibrillation documented in this encounter Care Teams Mop Maker Relationship Specialty Start Date End Date Graham Licona MD PCP - General Family Medicine 06/30/21 [facility] [address] [place] [address] Timothy Smith MD Assigned Heart and Vascular 07/23/[address] Provider [place] [id number] documented as of this encounter
--- OUTSIDE RECORDS SUMMARY | 2022-06-22 08:52 | XMS_ITS | Encounter Summary ---
:1940 Author Organization [facility] Address [address] [place] [address] Care Team Providers Name Role Phone Timothy Smith MD Unavailable Graham Licona MD Primary Care Provider Reason for Visit Reason Onset Date Comments Implantable Devices 08/24/2021 Encounter Details Date Type Department Care Team Description 08/24/2021 Telephone [facility] Sandrine Whitman Implantable Devices [facility] [address] [facility] [address] [place] [address] Social History Tobacco Use Types Packs/Day Years Used Date Never Smoker Smokeless Tobacco: Never Used Alcohol Use Standard Drinks/Week Comments No 0 (1 standard drink = 0.6 oz pure alcoho l) Sex Assigned at Date Recorded Not on file COVID-19 Exposure Response Date Recorded In the last month, have you been in contact with No / Unsure 08/24/2021 10:48 AM SOCIETY REPORTER someone who was confirmed or suspected to have Coronavirus / COVID-19? documented as of this encounter Miscellaneous Notes Telephone Encounter - Aliza Whitman - 09/06/2021 11:52 AM CST Images from the original note were not included. Called patient and reviewed that Dr Smith would like patient to restart Eliquis. Asked that patient call clinic if he notices any signs of GI bleed (dark tarry stools). Patient voiced understanding. ETY REPORTER Telephone Encounter - Aliza Whitman - 08/24/2021 12:50 PM CST Images from the original note were not included. Patient had in clinic device check today of his Single chamber ICD. Patient has a history of Aflutter/AFib. And per Saadia Montenegro's note on 06/30/21 a CHADSVASc of 4 (diabetes, CAD, age). Patient has been off Eliquis since June due to a GI bleed. Per notes patient was to have follow-up EGD done to reassess. Per patient this was completed on 08/04/21 and patient stated results were all good. See results below. ?? Will route message to Dr Smith. ETY REPORTER documented in this encounter Plan of Treatment Upcoming Encounters Date Type Specialty Care Team Description 06/26/2022 Ancillary Procedure Cardiology Seng Canchola MD [address] [place] [id number] (Wo rk) 08/16/2022 Ancillary Procedure Cardiology Timothy Smith MD [address] [place] [id number] (Wo rk) 08/16/2022 Office Visit Cardiology Timothy Smith MD [address] [place] [id number] (Wo rk) documented as of this encounter Visit Diagnoses Diagnosis Persistent atrial fibrillation (H) - [facility] jing Atrial fibrillation documented in this encounter Care Teams Station Mechanic Helper Relationship Specialty Start Date End Date Graham Licona MD PCP - General Family Medicine 06/30/21 [facility] [address] [place] [address] Timothy Smith MD Assigned Heart and Vascular 07/23/[address] Provider [place] [id number] documented as of this encounter
--- OUTSIDE RECORDS SUMMARY | 2022-06-22 08:52 | XMS_ITS | Encounter Summary ---
:1940 Author Organization [facility] Address [address] [place] [address] Care Team Providers Name Role Phone Timothy Smith MD Unavailable Graham Licona MD Primary Care Provider Encounter Details Date Type Department Care Team Description 07/01/2021 [facility] for screening for Hospital other viral diseases [address] [place] [address] Social History Tobacco Use Types Packs/Day Years [...] 06/26/2022 Ancillary Procedure Cardiology Seng Canchola MD [address] [place] [id number] (Wo rk) 08/16/2022 Ancillary Procedure Cardiology Timothy Smith MD [address] [place] [id number] (Wo rk) 08/16/2022 Office Visit Cardiology Timothy Smith MD [address] [place] [id number] (Wo rk) documented as of this encounter Procedures Procedure Name Priority Date/Time Associated Diagnosis Comme nts COVID-19 VIRUS Routine 07/01/2021 9:31 AM Encounter for Result s for this (CORONAVIRUS) BY CDT screening for other proc edure are in PCR viral diseases the results section. documented in this encounter Results Asymptomatic COVID-19 Virus (Coronavirus) by PCR Nasopharyngeal (07/01/2021 9:31 AM CDT) Analysis Performed At Patho logist Time Signature SARS CoV2 PCR Negative Negative 07/02/2021 [facility] 7:10 PM CDT LABORATORY Comment: NEGATIVE: SARS-CoV-2 (COVID-19) RNA not detected, presumed negative. Specimen Anatomical Location / Collection Method Collection Jose e Received Time (Source) Laterality / Volume Swab NASOPHARYNGEAL Non-blood 07/01/2021 9:31 07/01/2021 9:31 STRUCTURE / Unknown Collection / AM CDT AM CDT Unknown Narrative [facility] - 07/02/2021 7:10 PM C DT Testing was performed using the Aptima SARS-CoV-2 Assay on the Portable [employer] Instrument System. Additional in formation about this Emergency Use Authorization (EUA) assay can be found via the Lab Guide. This test should be ordered for t he detection of SARS-CoV-2 in individuals who meet SARS-CoV-2 clinical and/or epidemiological criteria. Test performance is unknown in asymptomatic patients. This test is for in vitro diagnostic use unde r the FDA EUA for laboratories certified under CLIA to per form high complexity testing. This test has not been FDA cleared or ap proved. A negative result does not rule out the presence of PCR in hibitors in the specimen or target RNA in concentration below the li kodi of detection for the assay. The possibility of a false negati ve should be considered if the patient's recent exposure or clinica l presentation suggests COVID-19. This test was validated by the [facility] Infectious Diseases Diagnostic Laboratory. This lab oratory is certified under the Clinical Laboratory Improvement Amen dments of 1987 (CLIA-88) as qualified to perform high complexity lab oratory testing. Timothy Smith MD LAB - MICRO GENERAL ORDERABL ES Performing Organization Address City/State/ZIP Code Phon e Number [facility] [place] [address] Diag. Lab [address] [facility] [facility] Infectious [place], [place] [phone] Diseases Diagnostic [phone], [facility] Lab (IDDL) [address] [facility], [address] documented in this encounter Visit Diagnoses Diagnosis Encounter for screening for other viral diseases documented in this encounter Care Teams Internal Sales Relationship Specialty Start Date End Date Graham Licona MD PCP - General Family Medicine 06/30/21 [facility] [address] [place] [address] Timothy Smith MD Assigned Heart and Vascular 07/23/20 [address] [facility] [address] Provider [place] [id number] documented as of this encounter
--- OUTSIDE RECORDS SUMMARY | 2022-06-22 08:52 | XMS_ITS | Encounter Summary ---
:1940 Author Organization [place] Address [address] [facility] [place] [address] Care Team Providers Name Role Phone Timothy Smith MD Unavailable Graham Licona MD Primary Care Provider Reason for Visit Reason Comments Clinic Care Coordination - Follow-up Encounter Details Date Type Department Care Team Description 06/30/2021 Documentation Only [facility] Tammy Montenegro [facility] Care Heart [facility] Shilpi Torres PA-C Coordination - [address] [facility] [address] [facility] [address] [place], [place] [phone] Social History Tobacco Use Types Packs/Day [...] documented as of this encounter Progress Notes Tammy Montenegro PA-C - 06/30/2021 3:[address] Haley OCAMPO only as you're doing Don's upgrade to from dual chamber PPM to ICD for primary prevention on 07/04. Pt of Dr. Smith's. FYI - I met him and he let me know that he'd been at [facility] for GI bleed/ulcer~. He's been off Eliquis since early Jun/ of this; was not instructed when to restart this for his persistent AFib but due to have a repeat EGD early Jul. Dr. Smith had wanted him to hold Eliquis x 2 days anyway. I figured we'd wait to restart until until repeat EGD done (I'm not sure if that has been set up yet but will check). Just I! Saadia documented in this encounter Plan of Treatment Upcoming Encounters Date Type Specialty Care Team Description 06/26/2022 Ancillary Procedure Cardiology Seng Cacnhola MD [address] [place] [id number] (Wo rk) 08/16/2022 Ancillary Procedure Cardiology Timothy Smith MD [address] [place] [address] (Wo rk) 08/16/2022 Office Visit Cardiology Timothy Smith MD [address] [place] [address] (Wo rk) documented as of this encounter Visit Diagnoses Not on filedocumented in this encounter Care Teams Acquisitions Editor Relationship Specialty Start Date End Date Graham Licona MD PCP - General Family Medicine 06/30/21 [facility] [address] [place] [address] Timothy Smith MD Assigned Heart and Vascular 07/23/[address] Provider [place] [id number] documented as of this encounter
--- OUTSIDE RECORDS SUMMARY | 2022-06-22 08:52 | XMS_ITS | Encounter Summary ---
:1940 Author Organization [place] Address [address] [place] [address] Care Team Providers Name Role Phone Timothy Smith MD Unavailable Graham Licona MD Primary Care Provider Reason for Visit CV Testing (Routine) - Pending Review Specialty Diagnoses / Procedures Referred By Contact Refer red To Contact Diagnoses Cardiac pacemaker in situ Chris De Leon MD Procedures Cardiac Device Check - In Clinic (Post implant follow up) [address] [place] [id number] Referral ID Status Reason Start Date Expiration Date Visits V isits Requested Authorized [id number] Pending 07/05/2021 07/05/2022 1 1 Review Encounter Details Date Type Department Care Team Description 08/24/2021 Ancillary Procedure [facility] Chris De Leon, Cardiac pacemaker in [facility] situ Heart Care [address] [facility] [address] [place] [address] [place] [phone] Social History Tobacco Use Types Packs/Day Years Used Date Never Smoker Smokeless Tobacco: Never Used Alcohol Use Standard Drinks/Week Comments No 0 (1 standard drink = 0.6 oz pure alcoho l) Sex Assigned at Date Recorded Not on file COVID-19 Exposure Response Date Recorded In the last month, have you been in contact with No / Unsure 08/24/2021 10:48 AM LOCOMOTIVE ENGINEER someone who was confirmed or suspected to have Coronavirus / COVID-19? documented as of this encounter Plan of Treatment Upcoming Encounters Date Type Specialty Care Team Description 06/26/2022 Ancillary Procedure Cardiology Seng Canchola MD [address] [place] [phone] (Wo rk) 08/16/2022 Ancillary Procedure Cardiology Timothy Smith MD [address] [place] [phone] (Wo rk) 08/16/2022 Office Visit Cardiology Timothy Smith MD [address] [place] [phone] (Wo rk) documented as of this encounter Procedures Procedure Name Priority Date/Time Associated Comments Diagnosis ICD DEVICE Routine 08/24/2021 11:02 Cardiac pacemaker Result s for this PROGRAMMING EVAL, AM LOCOMOTIVE ENGINEER in situ procedure are in DUAL LEAD ICD the results section. documented in this encounter Results ICD DEVICE PROGRAMMING EVAL, DUAL LEAD ICD (08/24/2021 11:02 AM LOCOMOTIVE ENGINEER) Component Value Ref Test Analysis Performed Pathologis t Range Method Time At Signature Date Time [id number] [employer] Interrogation Session Implantable [employer] Pulse Generator Mechanical Service Specialist Implantable D432 RESONATE EL [employer]IC Pulse Generator ICD Model Implantable [id number] [employer] Pulse Generator Serial Number Type In Clinic [facility] Interrogation Session Clinic Name [facility] [employer] Implantable Defibrillator [employer]TRONIC Pulse Generator Type Implantable [id number] MEDTR[employer]IC Pulse Generator Implant Date Implantable Lead [employer] Mechanical Service Specialist Implantable Lead [address] [place] [employer]TR[employer]IC Model 4-Site S Implantable Lead [id number] [employer] Serial Number Implantable Lead [id number] [employer]IC Implant Date Implantable Lead Bipolar Lead [...] [employer]ONIC Pacing Threshold Pulse Width Battery Date [id number] [employer] Time of Measurements Battery Status Beginning of [employer]TR[employer]IC Service Battery 174 mo [employer]TR[employer]IC Remaining Longevity Battery 100 % [employer] Remaining Percentage Capacitor Charge Reformation [employer] Type Capacitor Last [id number] [employer] Charge Date Time Capacitor Charge 9.1 s [employer]IC Time Brandon Statistic [id number] [employer] Date Time Start Brandon Statistic [id number] [employer] Date Time End Brandon Statistic 4 % [employer] RV Percent Paced Therapy 0 [employer]ONIC Statistic Recent Shocks Delivered Therapy 0 [employer]TRONIC Statistic Recent Shocks Aborted Therapy 8 [employer]TRONIC Statistic Recent ATP Delivered Therapy [id number] [employer]TRONIC Statistic Recent Date Time Start Therapy [id number] MEDTRONIC Statistic Recent Date Time End Therapy 0 MEDTRONIC Statistic Total Shocks Delivered Therapy 0 MEDTRONIC Statistic Total Shocks Aborted Therapy 8 MEDTRONIC Statistic Total ATP Delivered Therapy [id number] MEDTRONIC Statistic Total Date Time End Episode [...] VT-1 MEDTRONIC Statistic Vendor Type Category Episode [id number] [employer] Statistic Recent Date Time Start Episode [id number] [employer]IC Statistic Recent Date Time End Episode [id number] [employer]IC Statistic Recent Date Time Start Episode [id number] [employer]IC Statistic Recent Date Time End Episode [id number] [employer]IC Statistic Recent Date Time Start Episode [id number] [employer] Statistic Recent Date Time End Episode [id number] [employer]IC Statistic Recent Date Time Start Episode [employer]TRONIC Statistic Recent Date Time End Episode [id number] [employer] Statistic Recent Date Time Start Episode [employer]ONIC Statistic Recent Date Time End Episode APM-11 [employer] Identifier Episode Type Periodic EGM [employer] Category Episode Date [id number] [employer] Time Anatomical Region Laterality Modality Other Specimen (Source) Anatomical Collection Method Collection Time Re ceived Time Location / / Volume Laterality 08/24/2021 11:09 AM LOCOMOTIVE ENGINEER Narrative 09/06/2021 1:31 PM LOCOMOTIVE ENGINEER Linki Resonate (S) ICD Device Check Patient seen in clinic for device evalua tion and iterative programming. ?? NAPPER TENDER: 4% ?? Mode: VVIR 50-130 ?? Underlying [...] with V ra barbara of 200-210 for [id number] and [id number]. Both episodes received ATPx6 a nd was successful after the 6th attempt. VT episode on 08/01/21 at 0923 E GM shows VT for [id number] with V rates of 180-210bpm, ATPx7 was delivered and was successful after the 7th ATP attempt. The other episode of VT occ urred on 07/23/21 at 0832 EGM shows [id number] of VT with V rates of 200 [...] situ documented in this encounter Care Teams Physiotherapy Practice Manager Relationship Specialty Start Date End Date Graham Licona MD PCP - General Family Medicine 06/30/21 [facility] [address] [place] [address] Timothy Smith MD Assigned Heart and Vascular 07/23/[address] Provider [place] [id number] documented as of this encounter
--- OUTSIDE RECORDS SUMMARY | 2022-06-22 08:52 | XMS_ITS | Encounter Summary ---
:1940 Author Organization [place] Address [address] [place] [address] Care Team Providers Name Role Phone Timothy Smith MD Unavailable Graham Licona MD Primary Care Provider Reason for Visit CV Testing (Routine) - Pending Review Specialty Diagnoses / Procedures Referred By Contact Refer red To Contact Diagnoses Cardiac pacemaker in situ Chris De Leon MD Procedures Cardiac Device Check - In Clinic (Post implant follow up) [address] [place] [address] Referral ID Status Reason Start Date Expiration Date Visits V isits Requested Authorized [id number] Pending 07/05/2021 07/05/2022 1 1 Review Encounter Details Date Type Department Care Team Description 07/14/2021 Ancillary Procedure [facility] Chris De Leon, Cardiac pacemaker in [facility] situ Heart Care [address] [facility] [address] [place] [address] [place] [phone] Social History Tobacco Use Types Packs/Day Years [...] [address] [place] [phone] (Wo rk) 08/16/2022 Ancillary Procedure Cardiology Timothy Smith MD [address] [place] [address] (Wo rk) 08/16/2022 Office Visit Cardiology Timothy Smith MD [address] [place] [phone] (Wo rk) documented as of this encounter Procedures Procedure Name Priority Date/Time Associated Comments Diagnosis ICD DEVICE Routine 07/14/2021 12:46 Cardiac pacemaker Result s for this PROGRAMMING EVAL, PM CDT in situ procedure are in SINGLE LEAD ICD the results section. documented in this encounter Results ICD DEVICE PROGRAMMING EVAL, SINGLE LEAD ICD (07/14/2021 12:46 PM CDT) Component Value Ref Test Analysis Performed Pathologis t Range Method Time At Signature Date Time [employer]IC Interrogation Session Implantable [employer] MEDTRONIC Pulse Generator Plumber Implantable D432 RESONATE EL MEDTRONIC Pulse Generator ICD Model Implantable [id number] [employer]TRONIC Pulse Generator Serial Number Type In Clinic [facility] Interrogation Session Clinic Name [facility] [employer]IC Implantable Defibrillator MEDTRONIC Pulse Generator Type Implantable [id number] MEDTRONIC Pulse Generator Implant Date Implantable Lead [employer]TR ONIC Plumber Implantable Lead [address] [place] MEDTRONIC Model 4-Site S Implantable Lead [id number] [employer]TRONIC Serial Number Implantable Lead [id number] MEDTRONIC Implant Date Implantable Lead Bipolar Lead [...] 0 MEDTRONIC Statistic Total ATP Delivered Therapy 58462391437155 MEDTRONIC Statistic Total Date Time End Therapy 0 MEDTRONIC Statistic Recent Shocks Delivered Therapy 0 MEDTRONIC Statistic Recent Shocks Aborted Therapy 0 [employer]TRONIC Statistic Recent ATP Delivered Therapy SunJul 04 [employer]TR[employer]IC Statistic Recent 11:45:37 CDT 2020 Date Time Start Therapy [id number] [employer]TRONIC Statistic Recent Date Time End Episode 61 [employer]TRONIC Statistic Total Count Episode VT MEDTRONIC Statistic Type Category Episode NSVT MEDTRONIC Statistic Vendor Type Category Episode 0 MEDTRONIC Statistic Total Count Episode VF MEDTRONIC Statistic Type Category Episode VF MEDTRONIC Statistic Vendor Type Category Episode 0 MEDTRONIC Statistic Total Count Episode VF_VT_MONITOR MEDTRONIC Statistic Type Category Episode [id number] MEDTRONIC Statistic Total Date Time End Episode [id number] [employer]TR[employer]IC Statistic Total Date Time End Episode [id number] [employer]TR[employer]IC Statistic Total Date Time End Episode [...] 11:45:37 CDT 2020 Date Time Start Episode [id number] [employer]IC Statistic Recent Date Time End Episode SunJul 04 [employer]TR[employer]IC Statistic Recent 11:45:37 CDT 2020 Date Time Start Episode [id number] [employer]TR[employer]IC Statistic Recent Date Time End Episode SunJul 04 [employer]TRONIC Statistic Recent 11:45:37 CDT 2020 Date Time Start Episode [id number] [employer]IC Statistic Recent Date Time End Anatomical Region Laterality Modality Other Specimen (Source) Anatomical Collection Method Collection Time Re ceived Time Location / / Volume Laterality 07/14/2021 11:37 AM CDT Narrative 07/18/2021 1:08 PM CDT EMUZE ??7 Day Post Upgrade to ICD and PPM removal Device Check Patient seen in clinic for device evalua tion and iterative programming. CARGO OPERATIONS AGENT: 3 % ?? Mode: VVIR 50-130 ?? [...] situ documented in this encounter Care Teams Safety Person Relationship Specialty Start Date End Date Graham Licona MD PCP - General Family Medicine 06/30/21 [facility] [address] [place] [address] Timothy Smith MD Assigned Heart and Vascular 07/23/20 [address] [facility] [address] [address] Provider [place] [address] documented as of this encounter
--- OUTSIDE RECORDS SUMMARY | 2022-06-22 08:52 | XMS_ITS | Encounter Summary ---
:1940 Author Organization [place] Address [address] [place] [address] Care Team Providers Name Role Phone Slava Hernandez PA-C Primary Care Provider Timothy Smith MD Unavailable Reason for Referral (Routine) - Pending Review Specialty Diagnoses / Procedures Referred By Contact Refer red To Contact Diagnoses Sustained VT (ventricular tachycardia) Cardiac pacemaker in situ [facility] Procedures Case Request EP: Implantable Cardioverter-Defibrillator (ICD) [address] [facility] [address] [place] [phone] Referral ID Status Reason Start Date Expiration Date Visits V isits Requested Authorized [id number] Pending 06/23/2021 06/23/2022 1 1 Review onsultation (Routine) - Pending Review Specialty Diagnoses / Procedures Referred By Contact Refer red To Contact Diagnoses Sustained VT (ventricular tachycardia) Cardiac pacemaker in situ [facility] [address] [facility] [address] [place] [address] Referral ID Status Reason Start Date Expiration Date Visits V isits Requested Authorized [id number] Pending 06/23/2021 06/23/2022 1 1 Review Reason for Visit Reason Onset Date Comments Implantable Devices 06/23/2021 Encounter Details Date Type Department Care Team Description 06/23/2021 Telephone [facility] Sandrine Whitman Implantable Devices [facility] Heart [place] [address] [facility] [address] [place] [address] Social History Tobacco Use Types Packs/Day Years Used Date Never Smoker Smokeless Tobacco: Never Used Alcohol Use Standard Drinks/Week Comments No 0 (1 standard drink = 0.6 oz pure alcoho l) Sex Assigned at Date Recorded Not on file documented as of this encounter Miscellaneous Notes Telephone Encounter - Aliza Whitman - 06/23/2021 11:49 AM CDT Called patient with Dr Smith's recommendations. Encouraged patient to present to the ED if symptoms worsen. Orders were placed and paper work given to scheduling. Telephone Encounter - Timothy Smith MD - 06/23/2021 11:44 AM CDT Yes, please go ahead to reschedule ICD upgrade. Telephone Encounter - Aliza Whitman - 06/23/2021 10:26 AM CDT Images from the original note were not included. Patient called device clinic this morning stating that he had 2 episodes yesterday where he felt like he was going to pass out. Patient stated that Dr Smith had recommended that he upgrade his device to aICD in 03/2021. And at that time he decided he did not want to proceed. Patient stated that he has changed his mind and would to upgrade to a ICD. Asked that patient send a remote transmission of his pacemaker today to evaluate for any arrhythmiasthat correlate to symptoms. Patient had 14 logged VT episodes and 193 NSVT episodes logged. 10 VT EGMs available show NSVT episodes lasting 3-13sec with rates of 180-200 bpm. 2 NSVT EGMs available show on and off NSVT lasting 3-10 beats with rated of 120-200 bpm. Will route message to Dr Smith. documented in this encounter Plan of Treatment Upcoming Encounters Date Type Specialty Care Team Description 06/26/2022 Ancillary Procedure Cardiology Seng Canchola MD [address] [place] [address] (Wo rk) 08/16/2022 Ancillary Procedure Cardiology Timothy Smith MD [address] [place] [address] (Wo rk) 08/16/2022 Office Visit Cardiology Timothy Smith MD [address] [place] [phone] (Wo rk) Scheduled Referrals Name Type Priority Associated Order Schedule Diagnoses Follow-Up with Referral Routine: Next Sustained VT Expected: Diagnostic Sales Specialist available opening (ventricular tachycardia) (H) (Approximate), Cardiac pacemaker Expires: in situ 06/23/2022 documented as of this encounter Visit Diagnoses Diagnosis Sustained VT (ventricular tachycardia) - Primary Paroxysmal ventricular tachycardia Cardiac pacemaker in situ documented in this encounter Care Teams Lode Miner Blasting Relationship Specialty Start Date End Date lSava Hernandez, PCP - General Physician Special Machine Operator 07/02/1806/02 PA-C [facility] [id number] [place] [id number] Timothy Smith MD Assigned Heart and 07/23/[address] Vascular Provider [address] [place] [address] documented as of this encounter
--- OUTSIDE RECORDS SUMMARY | 2022-06-22 08:52 | XMS_ITS | Encounter Summary ---
:1940 Author Organization [place] Address [address] [place] [address] Care Team Providers Name Role Phone Timothy Smith MD Unavailable Graham Licona MD Primary Care Provider Encounter Details Date Type Department Care Team Description 07/05/2021 Telephone [facility] Keyshawn Myers RN [facility] Heart [place] [id number] [place] [address] Social History Tobacco Use Types Packs/Day Years Used Date Never Smoker Smokeless Tobacco: Never Used Alcohol Use Standard Drinks/Week Comments No 0 (1 standard drink = 0.6 oz pure alcoho l) Sex Assigned at Date Recorded Not on file documented as of this encounter Miscellaneous Notes Telephone Encounter - Kitty Myers RN - 07/05/2021 10:16 AM CDT Post device implant discharge phone call. Reviewed the following: No raising arm above shoulder on the side of implant for 3 weeks Remove outer dressing 3 days after implant. May shower after outer dressing removed. Leave steri-strips in place, will be removed at 1 week device check Limit driving for: 1 week Watch for redness, drainage, warmth, or fever. Call device clinic if any signs of infection. 1 week device check scheduled: 07/14/21 at 11:00am in [place]. Pt states understanding of all instructions. documented in this encounter Plan of Treatment Upcoming Encounters Date Type Specialty Care Team Description 06/26/2022 Ancillary Procedure Cardiology Seng Canchola MD [address] [place] [phone] (Wo rk) 08/16/2022 Ancillary Procedure Cardiology Timothy Smith MD [address] [place] [phone] (Wo rk) 08/16/2022 Office Visit Cardiology Timothy Smith MD [address] [place] [phone] (Wo rk) documented as of this encounter Visit Diagnoses Not on filedocumented in this encounter Care Teams Relocation Associate Relationship Specialty Start Date End Date Graham Licona MD PCP - General Family Medicine 06/30/21 [facility] [address] [place] [address] Timothy Smith MD Assigned Heart and Vascular 07/23/20 [address] Provider [place] [id number] documented as of this encounter
--- OUTSIDE RECORDS SUMMARY | 2022-06-22 08:52 | XMS_ITS | Encounter Summary ---
:1940 Author Organization [place] Address [address] [place] [address] Care Team Providers Name Role Phone Timothy Smith MD Unavailable Graham Licona MD Primary Care Provider Encounter Details Date Type Department Care Team Description [facility]/05[facility]2021 [facility] [address] [place] [address] Social History Tobacco Use Types [...] this encounter Miscellaneous Notes Telephone Encounter - Tony Reyes RN - 08/05/2021 9:55 AM CDT Remote ICD alert for ATP delivered. Since 08/02/2021 patient has had the following episodes logged. - 8 NSVT episodes logged. 2 EGMs available show 18-23 beats NSVT in the 190-200s. - 2 VT episodes logged on 08/04/2021 occurring consecutively at 12:02 and 12:04. EGM shows VT [id number] and 1m9s with V-rates in the 200-210s. For both episodes ATPx6 was delivered with rhythm breaking after the 6th ATP attempt. Dr. Smith reviewed episodes that occurred on 08/01 and 08/02/2021. The current plan is for no intervention unless he has symptoms or shocks from VT. Called patient to assess for symptoms. Left message for patient asking that patient return call if he is aware of any symptoms occurred at time episodes logged. Addendum: Patient returned call and stated he does not recall symptoms at time episodes logged. Willcontinue to monitor and asked that patient call if he notices any symptoms of fast heart rates (palpations), shortness of breath or syncope. Patient is scheduled for in clinic device check on 08/24/2021. documented in this encounter Plan of Treatment Upcoming Encounters Date Type Specialty Care Team Description 06/26/2022 Ancillary Procedure Cardiology Seng Canchola MD [address] [place] [phone] (Wo rk) 08/16/2022 Ancillary Procedure Cardiology Timothy Smith MD [address] [place] [address] (Wo rk) 08/16/2022 Office Visit Cardiology Timothy Smith MD [address] [place] [address] (Wo rk) documented as of this encounter Visit Diagnoses Not on filedocumented in this encounter Care Teams Keypunch Operator Relationship Specialty Start Date End Date Graham Licona MD PCP - General Family Medicine 06/30/21 [facility] [address] [place] [address] Timothy Smith MD Assigned Heart and Vascular 07/23/[address] Provider [place] [phone] documented as of this encounter
--- OUTSIDE RECORDS SUMMARY | 2022-06-22 08:52 | XMS_ITS | Encounter Summary ---
:1940 Author Organization [place] Address [address] [facility] [place] [address] Care Team Providers Name Role Phone Timothy Smith MD Unavailable Graham Licona MD Primary Care Provider Encounter Details Date Type Department Care Team Description 07/14/2021 Documentation Only [facility] Heart Trung, Shan Ruffin, Clinic Patt SANTANA [address] [facility] [address] [facility] [address] [place] [address] [place] [phone] (Wo rk) Social History Tobacco Use Types [...] as of this encounter Progress Notes Thao Alcocer RN - 07/14/2021 1:55 PM CDT Erroneous encounter. documented in this encounter Plan of Treatment Upcoming Encounters Date Type Specialty Care Team Description 06/26/2022 Ancillary Procedure Cardiology Iskos, Demos thenes Nikolaos, MD [address] [place] [phone] (Wo rk) 08/16/2022 Ancillary Procedure Cardiology Timothy Smith MD [address] [place] [phone] (Wo rk) 08/16/2022 Office Visit Cardiology Timothy Smith MD [address] [place] [phone] (Wo rk) documented as of this encounter Visit Diagnoses Not on filedocumented in this encounter Care Teams Mobile Home Installer Relationship Specialty Start Date End Date Graham Licona MD PCP - General Family Medicine 06/30/21 [facility] [address] [place] [address] Timothy Smith MD Assigned Heart and Vascular 07/23/20 [address] Provider [place] [phone] documented as of this encounter
--- OUTSIDE RECORDS SUMMARY | 2022-06-22 08:52 | XMS_ITS | Encounter Summary ---
:1940 Author Organization [place] Address [address] [place] [address] Care Team Providers Name Role Phone Slava Hernandez PA-C Primary Care Provider Timothy Smith MD Unavailable Encounter Details Date Type Department Care Team Description 06/29/2021 Orders Only [facility] Tony Reyes Sustai ned [facility] RN (ventricu lar Heart Care tachycardia) (H) [address] [facility] (Primary Dx) [facility] [address] [place] [phone] Social History Tobacco Use Types Packs/Day Years Used Date Never Smoker Smokeless Tobacco: Never Used Alcohol Use Standard Drinks/Week Comments No 0 (1 standard drink = 0.6 oz pure alcoho l) Sex Assigned at Date Recorded Not on file documented as of this encounter Progress Notes Tony Reyes, SIENNA - 06/29/2021 9:24 AM CDT Called patient with pre-procedure instructions for device implant: Anticoagulation: Patient to hold Eliquis 2 days prior to procedure per Dr. Smith Oral diabetes meds: Hold Metformin AM of procedure Insulin: N/A Diuretic: N/A Contrast allergy: None Pt informed to be NPO at midnight, may have clear liquid breakfast before 8am. Instructed pt to shower the morning of the procedure, and then put on a clean shirt in order to helpprevent infection. Pt has post-procedure transportation and 24 hours monitoring set up. Pt aware of no driving for 24 hours post procedure due to sedation. COVID test scheduled: Sunday07/01/2021 Pt reminded to self-quarantine from the time of the COVID test to the procedure. Pt aware of arrival time and location. Pt verbalized understanding of instructions. documented in this encounter Plan of Treatment Upcoming Encounters Date Type Specialty Care Team Description 06/26/2022 Ancillary Procedure Cardiology Seng Canchola MD [address] [place] [address] (Wo rk) 08/16/2022 Ancillary Procedure Cardiology Timothy Smith MD [address] [place] [id number] (Wo rk) 08/16/2022 Office Visit Cardiology Timothy Smith MD [address] [place] [id number] (Wo rk) documented as of this encounter Visit Diagnoses Diagnosis Sustained VT (ventricular tachycardia) - Primary Paroxysmal ventricular tachycardia documented in this encounter Care Teams Child Support Agent Relationship Specialty Start Date End Date Slava Hernandez, PCP - General Physician Production Operations Engineer 07/02/1806/02 PA-C [facility] [address] [place] [address] Timothy Smith MD Assigned Heart and 07/23/[address] Vascular Provider [address] [place] [id number] documented as of this encounter
--- OUTSIDE RECORDS SUMMARY | 2022-06-22 08:53 | XMS_ITS | Encounter Summary ---
:1940 Author Organization [place] Address [address] [place] [address] Care Team Providers Name Role Phone Slava Hernandez PA-C Primary Care Provider Reason for Visit CV Testing (Routine) - Closed Specialty Diagnoses / Procedures Referred By Contact Refer red To Contact Diagnoses Cardiac pacemaker in situ Basil Guadalupe MD Procedures Cardiac Device Check - Remote [address] [place] [address] Referral ID Status Reason Start Date Expiration Date Visits Requ ested Visits Authorized [id number] Closed 01/27/2020 01/26/2021 1 1 Encounter Details Date Type Department Care Team Description 05/04/2020 Ancillary Procedure [facility] Basil Guadalupe ardiac pacemaker in [facility] MD [place] situ Heart Care [address] [facility] [address] [facility] [address] [place] [address] [place] [phone] (Work) [phone] Social History Tobacco Use Types Packs/Day Years Used Date Never Smoker Smokeless Tobacco: Never Used Alcohol Use Standard Drinks/Week Comments No 0 (1 standard drink = 0.6 oz pure alcoho l) Sex Assigned at Date Recorded Not on file documented as of this encounter Plan of Treatment Upcoming Encounters Date Type Specialty Care Team Description 06/26/2022 Ancillary Procedure Cardiology Seng Canchola MD [address] [place] [address] (Wo rk) 08/16/2022 Ancillary Procedure Cardiology Tmiothy Smith MD [address] [place] [id number] (Wo rk) 08/16/2022 Office Visit Cardiology Timothy Smith MD [address] [place] [id number] (Wo rk) documented as of this encounter Procedures Procedure Name Priority Date/Time Associated Comments Diagnosis INTERROGATION DEVICE Routine 05/04/2020 7:30 AM Cardiac pacema ker Results for this EVAL REMOTE PACER UP CDT in situ procedu re are in TO 90 DAYS the results section. documented in this encounter Results INTERROGATION DEVICE EVAL REMOTE PACER UP TO 90 DAYS (05/04/2020 7:30 AM CDT) Component Value Ref Test Analysis Performed Pathologis t Range Method Time At Signature Date Time [id number] [employer] Interrogation Session Implantable [place] [employer] Pulse Generator Scraper Tender Implantable L121 ESSENTIO EL [employer] Pulse Generator Model Implantable [id number] [employer] Pulse Generator Serial Number Type Remote [facility]IC Interrogation Session Clinic Name [facility] [employer] Implantable Pacemaker [employer]IC Pulse Generator Type Implantable [id number] [employer] Pulse Generator Implant Date Implantable Lead [facility] RAUL Scraper Tender Implantable Lead 2087TC Tendril MEDTRONI C Model STS Implantable Lead [id number] [employer] Serial Number Implantable Lead [id number] MED[employer]IC Implant Date Implantable Lead Bipolar Lead [employer] Polarity Type Implantable Lead UNKNOWN [employer] Location Detail 1 Implantable Lead Right Atrium [employer] Location Implantable Lead [facility] [employer] RAUL Scraper Tender Implantable Lead 2087TC Tendril MEDTRONI C Model STS Implantable Lead [id number] [employer] Serial Number Implantable Lead [id number] MEDTRONIC [...] 375 ms [employer] Detection Interval Lead Channel 421 ohm [employer] Impedance Value Lead Channel 528 ohm [employer] Impedance Value Lead Channel 0.8 V [employer] Pacing Threshold Amplitude Lead Channel 0.4 ms [employer] Pacing Threshold Pulse Width Battery Date [employer]IC Time of Measurements Battery Status Beginning of MEDTR[employer] Service Battery 138 mo [employer] Remaining Longevity Battery 100 % [employer] Remaining Percentage Brandon Statistic [id number] [employer]IC Date Time Start Brandon Statistic [id number] [employer]IC Date Time End Brandon Statistic 0 % [employer] RA Percent Paced Brandon Statistic 36 % [employer] RV Percent Paced Episode 0 [employer]IC Statistic Recent Count Episode AT/AF [employer]IC Statistic Type Category Episode AF [employer]TRONIC Statistic Vendor Type Category Episode 0 [employer]TR[employer]IC Statistic Recent Count Episode SVT [facility]TR[employer]IC Statistic Type Category Episode SVT [facility]TR[employer]IC Statistic Vendor Type Category Episode 18 [employer]IC Statistic Recent Count Episode VT MEDTRONIC Statistic Type Category Episode NSVT [facility]TR[employer]IC Statistic Vendor Type Category Episode 0 MEDTRONIC Statistic Recent Count Episode VT MEDTRONIC Statistic Type Category Episode VT [facility]TR[employer]IC Statistic Vendor Type Category Episode [id number] [employer] Statistic Recent Date Time Start Episode [id number] [employer] Statistic Recent Date Time End Episode [id number] [employer] Statistic Recent Date Time Start Episode [id number] [employer] Statistic Recent Date Time End Episode [id number] [employer] Statistic Recent Date Time Start Episode [id number] [employer] Statistic Recent Date Time End Episode [id number] [employer] Statistic Recent Date Time Start Episode [id number] [employer]IC Statistic Recent Date Time End Episode APM-95 [employer] Identifier Episode Type Periodic EGM [employer]IC Category Episode Date [id number] [employer]IC Time Episode [id number] [employer]IC Identifier Episode Type Other MEDTRONIC Category Episode Date [id number] MED[employer]IC Time Episode V-1554 MED[employer]IC Identifier Episode Type VT [facility]IC Category Episode Date [id number] [employer] Time Episode Duration 13 s MEDTRONIC Episode V-1553 MEDTRONIC Identifier Episode Type VT MEDTRONIC Category Episode Date [id number] [employer] Time Episode Duration 18 s MEDTRONIC Episode V-1552 MEDTRONIC Identifier Episode Type VT MEDTRONIC Category Episode Date [id number] MED[employer]IC Time Episode Duration 14 s MEDTRONIC Episode V-1551 [employer]IC Identifier Episode Type VT [facility]IC Category Episode Date [id number] [employer] Time Episode Duration 13 s [employer] Anatomical Region Laterality Modality Other Specimen (Source) Anatomical Collection Method Collection Time Re ceived Time Location / / Volume Laterality 05/04/2020 12:41 AM CDT Narrative 05/05/2020 5:21 PM CDT [employer] (S) Remote PPM Device Check 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 2 EGMs available showing irregular VS events suggestive of RVR, e pisodes lasting 5-18 seconds, rates 120 - 180bpm. Care Plan: F/u PPM Latitude q 3 months. LM with results. KAE Keen I have reviewed and interpreted the agustín ce interrogation, settings, programming and nurse's summary. The dev ice is functioning within normal device parameters. I agree with the curr ent findings, assessment and plan. Basil Guadalupe MD CV CARDIAC SERVICES ORDERABL ES documented in this encounter Visit Diagnoses Diagnosis Cardiac pacemaker in situ documented in this encounter Care Teams Sulfide Head Operator Relationship Specialty Start Date End Date Slava Hernandez PA-C PCP - General Physician Manufacturing Associate 07/02/18 06/29/[address] [address] documented as of this encounter
--- OUTSIDE RECORDS SUMMARY | 2022-06-22 08:53 | XMS_ITS | Encounter Summary ---
:1940 Author Organization [place] Address [address] [place] [address] Care Team Providers Name Role Phone Slava Hernandez PA-C Primary Care Provider Timothy Smith MD Unavailable Reason for Visit CV Testing (Routine) - Closed Specialty Diagnoses / Procedures Referred By Contact Refer red To Contact Diagnoses Cardiac pacemaker in situ Timothy Smith MD Procedures Cardiac Device Check - Remote [address] [place] [id number] Referral ID Status Reason Start Date Expiration Date Visits Requ ested Visits Authorized [id number] Closed 05/04/2020 05/04/2021 1 1 Encounter Details Date Type Department Care Team Description 08/03/2020 Ancillary Procedure [facility] Timothy Smith MD Cardiac pacemaker in [facility] [address] situ Heart Care [address] [facility] [place] [address] [facility] [address] [place] [phone] (Work) [phone] Social History Tobacco Use Types Packs/Day Years Used Date Never Smoker Smokeless Tobacco: Never Used Alcohol Use Standard Drinks/Week Comments No 0 (1 standard drink = 0.6 oz pure alcoho l) Sex Assigned at Date Recorded Not on file COVID-19 Exposure Response Date Recorded In the last month, have you been in contact with No / Unsure 07/07/2020 10:34 AM CDT someone who was confirmed or suspected to have Coronavirus / COVID-19? documented as of this encounter Plan of Treatment Upcoming Encounters Date Type Specialty Care Team Description 06/26/2022 Ancillary Procedure Cardiology Seng Canchola MD [address] [place] [phone] (Wo rk) 08/16/2022 Ancillary Procedure Cardiology Timothy Smith MD [address] [place], [place] [phone] (Wo rk) 08/16/2022 Office Visit Cardiology Timothy Smith MD [address] [place] [phone] (Wo rk) documented as of this encounter Procedures Procedure Name Priority Date/Time Associated Comments Diagnosis INTERROGATION DEVICE Routine 08/03/2020 8:56 AM Cardiac pacema ker Results for this EVAL REMOTE PACER UP WIRE ANNEALER in situ procedu re are in TO 90 DAYS the results section. documented in this encounter Results INTERROGATION DEVICE EVAL REMOTE PACER UP TO 90 DAYS (08/03/2020 8:56 AM WIRE ANNEALER) Component Value Ref Test Analysis Performed Pathologis t Range Method Time At Signature Date Time [id number] [employer] Interrogation Session Implantable [place] [employer] Pulse Generator Rn Cardiac Implantable L121 ESSENTIO EL [employer] Pulse Generator Model Implantable [id number] [employer] Pulse Generator Serial Number Type Remote MEDTR[facility]IC Interrogation Session Clinic Name [facility] [employer] Implantable Pacemaker MEDTRONIC Pulse Generator Type Implantable [id number] MED[employer]IC Pulse Generator Implant Date Implantable Lead [facility] RAUL Rn Cardiac Implantable Lead 2087TC Tendril MEDTRONI C Model STS Implantable Lead [id number] [employer]IC Serial Number Implantable Lead [id number] MEDTRONIC Implant Date Implantable Lead Bipolar Lead [employer] Polarity Type Implantable Lead UNKNOWN [employer] Location Detail 1 Implantable Lead Right Atrium [employer] Location Implantable Lead [facility] [employer] RAUL Rn Cardiac Implantable Lead 2087TC Tendril MEDTRONI C Model STS Implantable Lead [id number] [employer] Serial Number Implantable Lead [id number] MEDTRONIC [...] 375 ms MEDTRONIC Detection Interval Lead Channel 419 ohm MEDTRONIC Impedance Value Lead Channel 521 ohm [employer]IC Impedance Value Lead Channel 0.8 V [employer]TR[employer]IC Pacing Threshold Amplitude Lead Channel 0.4 ms [employer]TR[employer]IC Pacing Threshold Pulse Width Battery Date [employer]IC Time of Measurements Battery Status Beginning of MEDTR[employer]IC Service Battery 132 mo [employer]IC Remaining Longevity Battery 100 % [employer]IC Remaining Percentage Brandon Statistic [id number] [employer]TR[employer]IC Date Time Start Brandon Statistic [id number] [employer]IC Date Time End Brandon Statistic 0 % MEDTRONIC RA Percent Paced Brandon Statistic 35 % MEDTRONIC RV Percent Paced Episode 0 MEDTRONIC Statistic Recent Count Episode AT/AF [facility]TRONIC Statistic Type Category Episode AF MEDTRONIC Statistic Vendor Type Category Episode 0 MEDTRONIC Statistic Recent Count Episode SVT MEDTRONIC Statistic Type Category Episode SVT MEDTRONIC Statistic Vendor Type Category Episode 24 MEDTRONIC Statistic Recent Count Episode VT MEDTRONIC Statistic Type Category Episode NSVT [employer]TRONIC Statistic Vendor Type Category Episode 0 MEDTRONIC Statistic Recent Count Episode VT MEDTRONIC Statistic Type Category Episode VT MEDTRONIC Statistic Vendor Type Category Episode [id number] [employer]TRONIC Statistic Recent Date Time Start Episode [id number] [employer]IC Statistic Recent Date Time End Episode [id number] [employer]IC Statistic Recent Date Time Start Episode [id number] [employer]IC Statistic Recent Date Time End Episode [id number] [employer]IC Statistic Recent Date Time Start Episode [id number] [employer]TRONIC Statistic Recent Date Time End Episode [id number] [employer]TR[employer]IC Statistic Recent Date Time Start Episode [id number] [employer]TRONIC Statistic Recent Date Time End Episode APM-96 [employer]IC Identifier Episode Type Periodic EGM [employer]IC Category Episode Date [id number] MED[employer]IC Time Episode RVAT-[id number] [employer] Identifier Episode Type Other MEDTRONIC Category Episode Date [id number] MED[employer]IC Time Episode V-1560 MEDTRONIC Identifier Episode Type VT MEDTRONIC Category Episode Date [id number] MEDTRONIC Time Episode Duration 13 s MEDTRONIC Episode V-1559 MEDTRONIC Identifier Episode Type VT MEDTRONIC Category Episode Date [id number] MEDTRONIC Time Episode Duration 19 s MEDTRONIC Episode V-1558 MEDTRONIC Identifier Episode Type VT MEDTRONIC Category Episode Date [id number] MEDTR[employer]IC Time Episode Duration 11 s MEDTRONIC Episode V-1557 MEDTRONIC Identifier Episode Type VT MEDTRONIC Category Episode Date [id number] MED[employer]IC Time Episode Duration 11 s MEDTRONIC Episode V-1556 MEDTRONIC Identifier Episode Type VT MEDTRONIC Category Episode Date [id number] MEDTRONIC Time Episode Duration 29 s MEDTRONIC Episode V-1555 MEDTRONIC Identifier Episode Type VT [facility]TRONIC Category Episode Date [id number] [employer] Time Episode Duration 13 s [employer] Anatomical Region Laterality Modality Other Specimen (Source) Anatomical Collection Method Collection Time Re ceived Time Location / / Volume Laterality 08/03/2020 12:41 AM WIRE ANNEALER Narrative 08/04/2020 1:54 PM WIRE ANNEALER [employer] (S) Remote PPM Device Check 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 2 EGMs available showing irregular VS events suggestive of RVR, e pisodes lasting 13-19 seconds, rates 88-180bpm. Care Plan: F/u PPM Latitude q 3 months. Postpone annual due to Covid. LM with results. JULY KeenT I have reviewed and interpreted the agustín ce interrogation, settings, programming and nurse's summary. The dev ice is functioning within normal device parameters. I agree with the curr ent findings, assessment and plan. Timothy Smith MD CV CARDIAC SERVICES ORDERABL ES documented in this encounter Visit Diagnoses Diagnosis Cardiac pacemaker in situ documented in this encounter Care Teams Php Consultant Relationship Specialty Start Date End Date Slava Hernandez, PCP - General Physician Vaccine Specialist 07/02/1806/02 [facility] [address] [place] [address] Timothy Smith MD Assigned Heart and 07/23/20 [address] Vascular Provider [address] [place] [address] documented as of this encounter
--- OUTSIDE RECORDS SUMMARY | 2022-06-22 08:53 | XMS_ITS | Encounter Summary ---
:1940 Author Organization [place] Address [address] [place] [address] Care Team Providers Name Role Phone Slava Hernandez PA-C Primary Care Provider Encounter Details Date Type Department Care Team Description 07/07/2020 Travel Social History Tobacco Use Types Packs/Day [...] [address] [place] [phone] (Wo rk) 08/16/2022 Ancillary Procedure Cardiology Timothy Smith MD [address] [place] [phone] (Wo rk) 08/16/2022 Office Visit Cardiology Timothy Smith MD [address] [place] [phone] (Wo rk) documented as of this encounter Visit Diagnoses Not on filedocumented in this encounter Care Teams Model Engine Mechanic Relationship Specialty Start Date End Date Slava Hernandez PA-C PCP - General Physician Drafter Cartographic 07/02/18 06/29/21 [facility] [address] [place] [address] documented as of this encounter
--- OUTSIDE RECORDS SUMMARY | 2022-06-22 08:53 | XMS_ITS | Encounter Summary ---
:1940 Author Organization [facility] Address [address] [place] [address] Care Team Providers Name Role Phone Slava Hernandez PA-C Primary Care Provider Timothy Smith MD Unavailable Reason for Referral CV Testing (Routine) - Closed Specialty Diagnoses / Procedures Referred By Contact Refer red To Contact Cardiology Diagnoses Sustained VT (ventricular tachycardia) Timothy Smith MD Cv Cardiac Svc Rscc Procedures Holter Monitor 24 hour Adult Pediatric [facility] AMB BP MONITORING W/SW >=24 HR, RECORD/SCAN/INTRP/RPT [facility] HOLTER RECORDING 24 HRS [facility] H[place] SCAN 24 HRS [place] HOLTER SCAN 24 HRS [address] [address] [employer] [place] AMB BP MONITORING W/SW >= 24 HR, RECORD/SCAN/INTRP/RPT HC HOLTER RECORDING 24 HRS HC HOLTER SCAN 24 HRS, ANALYSIS WITH REPORT [place] [address] [address] [place] [address] Phone: Fax: Referral ID Status Reason Start Date Expiration Date Visits Requ ested Visits Authorized [id number] Closed 03/23/2021 03/23/2022 1 1 Reason for Visit CV Testing (Routine) - Closed Specialty Diagnoses / Procedures Referred By Contact Refer red To Contact Cardiology Diagnoses Sustained VT (ventricular tachycardia) Timothy Smith MD Rh Cv Cardiac Svc Rscc Procedures Holter Monitor 24 hour Adult Pediatric ZZC AMB BP MONITORING W/SW >=24 HR, RECORD/SCAN/INTRP/RPT [facility] HOLTER RECORDING 24 HRS [facility] [place]OL[place] 24 HRS [place] 24 [place] [address] [address] [employer] [place] AMB BP MONITORING W/SW >= 24 HR, RECORD/SCAN/INTRP/RPT HC HOLTER RECORDING 24 HRS HC HOLTER SCAN 24 HRS, [place] [address] [address] [place] [address] Phone: Fax: Referral ID Status Reason Start Date Expiration Date Visits Requ ested Visits Authorized [id number] Closed 03/23/2021 03/23/2022 1 1 Encounter Details Date Type Department Care Team Description 03/30/2021 Hospital Encounter [facility] Timothy Smith MD Sustained [place] [facility] [address] (ventricu lar Heart Care [address] tachycardia) (H) [address] [facility] [place], [place] [address] [address] [place], [place] (Work) [address] Social History Tobacco Use Types Packs/Day Years Used Date Never Smoker Smokeless Tobacco: Never Used Alcohol Use Standard Drinks/Week Comments No 0 (1 standard drink = 0.6 oz pure alcoho l) Sex Assigned at Date Recorded Not on file COVID-19 Exposure Response Date Recorded In the last month, have you been in contact with No / Unsure 03/30/2021 2:08 PM CDT someone who was confirmed or suspected to have Coronavirus / COVID-19? documented as of this encounter Medications at Time of Discharge Medication Sig Dispensed Refills Start Date End Date ACYCLOVIR 400 MG OR TABS 1 TABLET 3 TIMES 30 6 04/25 DAILY-as need for Cold sores fenofibrate 160 MG tablet Take 160 mg by 0 mouth daily. furosemide (LASIX) 40 MG Take 40 mg by mouth 0 tablet daily metoprolol succinate ER Take 1 tablet (50 90 tablet 3 03/23 (TOPROL-XL) 50 MG 24 hr mg) by mouth daily tabletIndications: Persistent atrial fibrillation (H) nitroGLYcerin (NITROSTAT) Place 1 tablet (0.4 100 tablet 3 0 02/24/2020 0.4 MG sublingual mg) under the tabletIndications: tongue every 5 Coronary artery disease minutes as needed involving ak chin coronary for chest pain artery of ak chin heart without angina pectoris apixaban ANTICOAGULANT Take 1 tablet (5 180 tablet 2 021 04/26/2021 (ELIQUIS ANTICOAGULANT) 5 mg) by mouth 2 MG tabletIndications: times daily A-fib (H) celecoxib (CELEBREX) 200 Take 200 mg by 0 06/30/2021 MG capsule mouth 2 times daily GLIPIZIDE PO Take 5 mg by mouth 0 12/2020 2 times daily (before meals) metFORMIN (GLUCOPHAGE) Take 2 tablets 60 tablet 0 6 06/30/2021 500 MG tabletIndications: (1,000 mg) by mouth Type 2 diabetes mellitus 2 times daily (with with complication (H) meals) pravastatin (PRAVACHOL) Take 80 mg by mouth 0 06/30/2021 80 MG tablet At Bedtime tamsulosin (FLOMAX) 0.4 Take 1 capsule (0.4 90 capsule 4 11/201807/04/2021 MG capsuleIndications: mg) by mouth daily Urinary frequency, Weak urinary stream documented as of this encounter Progress Notes Génesis Barth - 03/30/2021 2:21 PM CDT 24 Hour holter monitor was set up without complications. documented in this encounter Plan of Treatment Upcoming Encounters Date Type Specialty Care Team Description 06/26/2022 Ancillary Procedure Cardiology Seng Canchola MD [address] [place] [id number] (Wo rk) 08/16/2022 Ancillary Procedure Cardiology Timothy Smith MD [address] [place] [address] (Wo rk) 08/16/2022 Office Visit Cardiology Timothy Smith MD [address] [place] [id number] (Wo rk) documented as of this encounter Procedures Procedure Name Priority Date/Time Associated Comments Diagnosis HOLTER MONITOR 24 HOUR Routine 03/30/2021 2:21 PM Sustained VT Results for this APPLICATION SCAN CDT (ventricular procedure a re in ANALYSIS AND PROVIDER tachycardia) (H) th e results INTERPRETATION section. documented in this encounter Results HOLTER MONITOR 24 HOUR APPLICATION SCAN ANALYSIS AND PROVIDER INTERPRETATION (03/30/2021 2:21 PM CDT) Anatomical Region Laterality Modality Other Specimen (Source) Anatomical Collection Method Collection Time Re ceived Time Location / / Volume Laterality 03/30/2021 2:19 PM CDT Timothy Smith MD CV CARDIAC SERVICES ORDERABL ES documented in this encounter Visit Diagnoses Diagnosis Sustained VT (ventricular tachycardia) Paroxysmal ventricular tachycardia documented in this encounter Care Teams Medical Claims Representative Relationship Specialty Start Date End Date Slava Hernandez, PCP - General Physician Medical Leader 07/02/1806/02 PA-C [facility] [address] [place] [address] Timothy Smith MD Assigned Heart and 07/23/20 [address] Vascular Provider [place] [address] documented as of this encounter
--- OUTSIDE RECORDS SUMMARY | 2022-06-22 08:53 | XMS_ITS | Encounter Summary ---
:1940 Author Organization [facility] Address [address] [place] [address] Care Team Providers Name Role Phone Slava Hernandez PA-C Primary Care Provider Timothy Smith MD Unavailable Reason for Visit Reason Onset Date Comments Refill Request 08/30/2020 bridge to mail order !! Encounter Details Date Type Department Care Team Description 08/30/2020 Refill M [facility] Zarina Smith MD Refill Request ([facility] [place] [address] to mail order!!) [address] [place] [address] [place] [phone] Social History Tobacco Use Types Packs/Day Years [...] MD [address] [place] [id number] (Wo rk) 08/16/2022 Ancillary Procedure Cardiology Timothy Smith MD [address] [place] [id number] (Wo rk) 08/16/2022 Office Visit Cardiology Timothy Smith MD [address] [place] [id number] (Wo rk) documented as of this encounter Visit Diagnoses Diagnosis Paroxysmal atrial fibrillation (H) Atrial fibrillation documented in this encounter Care Teams Diesel Crane Operator Relationship Specialty Start Date End Date Slava Hernandez, PCP - General Physician Skip Tracer 07/02/1806/02 PA-C [facility] [address] [place] [address] Timothy Smith MD Assigned Heart and 07/23/20 [address] Vascular Provider [address] [place] [address] documented as of this encounter
--- OUTSIDE RECORDS SUMMARY | 2022-06-22 08:53 | XMS_ITS | Encounter Summary ---
:1940 Author Organization [facility] Address [address] [place] [address] Care Team Providers Name Role Phone Slava Hernandez PA-C Primary Care Provider Timothy Smith MD Unavailable Encounter Details Date Type Department Care Team Description 03/30/2021 Travel Social History Tobacco Use Types Packs/Day [...] [address] [place] [id number] (Wo rk) 08/16/2022 Ancillary Procedure Cardiology Timothy Smith MD [address] [place] [id number] (Wo rk) 08/16/2022 Office Visit Cardiology Timothy Smith MD [address] [place] [id number] (Wo rk) documented as of this encounter Visit Diagnoses Not on filedocumented in this encounter Care Teams Electromedical Service Engineer Relationship Specialty Start Date End Date Slava Hernandez, PCP - General Physician Perforator Operator Oil Well 07/02/1806/02 [facility] [address] [place] [address] Timothy Smith MD Assigned Heart and 07/23/20 [address] [facility] Vascular Provider [address] [place] [address] documented as of this encounter
--- OUTSIDE RECORDS SUMMARY | 2022-06-22 08:53 | XMS_ITS | Encounter Summary ---
:1940 Author Organization [facility] Address [address] [place] [address] Care Team Providers Name Role Phone Slava Hernandez PA-C Primary Care Provider Timothy Smith MD Unavailable Reason for Visit Reason Onset Date Comments Medication Question 02/02/2021 side effects? Encounter Details Date Type Department Care Team Description 02/02/2021 Telephone [facility] Sammi Hill Medic ation Question [facility] SIENNA Butler (side eff ects?) Heart Care [address] [facility] [address] [place] [address] Social History Tobacco Use Types Packs/Day Years Used Date Never Smoker Smokeless Tobacco: Never Used Alcohol Use Standard Drinks/Week Comments No 0 (1 standard drink = 0.6 oz pure alcoho l) Sex Assigned at Date Recorded Not on file documented as of this encounter Miscellaneous Notes Telephone Encounter - Sammi Hill RN - 02/02/2021 1:10 PM CDT Pt left VM. He said he has blood blisters all over his left arm. He says this is new and has never happened before. Chart reviewed. Pt does take eliquis for persistent AF. Called pt. He said he has had the blood blisters on his left arm for almost a week. They all popped up at the same time, and haven't gotten better or worse. No injury to his arm that he can remember, but he says he is working outside more lately. They all appear underneath his skin, there is no actualbleeding. He said he recently had some on his right arm too, but those have resolved. I told pt to give it another week or so, and then call us if they aren't getting better. I told him that with the eliquis normal things like that can take longer to resolve because of the blood thinner. Pt states understanding and agrees with this plan. documented in this encounter Plan of Treatment Upcoming Encounters Date Type Specialty Care Team Description 06/26/2022 Ancillary Procedure Cardiology Seng Canchola MD [address] [place] [id number] (Wo rk) 08/16/2022 Ancillary Procedure Cardiology Timothy Smith MD [address] [place] [address] (Wo rk) 08/16/2022 Office Visit Cardiology Timothy Smith MD [address] [place] [id number] (Wo rk) documented as of this encounter Visit Diagnoses Not on filedocumented in this encounter Care Teams Entertainment Musician Relationship Specialty Start Date End Date Slava Hernandez, PCP - General Physician Chief Of Service 07/02/1806/02 PA-C [facility] [address] [place] [address] Timothy Smith MD Assigned Heart and 07/23/20 [address] Vascular Provider W[address]Cally [place] [id number] documented as of this encounter
--- OUTSIDE RECORDS SUMMARY | 2022-06-22 08:53 | XMS_ITS | Encounter Summary ---
:1940 Author Organization [facility] Address [address] [facility] [place] [address] Care Team Providers Name Role Phone Slava Hernandez PA-C Primary Care Provider Timothy Smith MD Unavailable Reason for Visit Reason Comments Medication Refill Encounter Details Date Type Department Care Team Description 09/24/2020 Refill [facility] Urology Shea Rivera PA-C Medication Refill [facility] [place] [address] [place] [address] [place] [address] [place] [phone] Social History Tobacco Use Types Packs/Day Years Used Date Never Smoker Smokeless Tobacco: Never Used Alcohol Use Standard Drinks/Week Comments No 0 (1 standard drink = 0.6 oz pure alcoho l) Sex Assigned at Date Recorded Not on file documented as of this encounter Plan of Treatment Upcoming Encounters Date Type Specialty Care Team Description 06/26/2022 Ancillary Procedure Cardiology Seng Canchola MD [address] [place] [id number] (Wo rk) 08/16/2022 Ancillary Procedure Cardiology Timothy Smith MD [address] [place] [id number] (Wo rk) 08/16/2022 Office Visit Cardiology Timothy Smith MD [address] [place] [id number] (Wo rk) documented as of this encounter Visit Diagnoses Diagnosis Urinary frequency Weak urinary stream Slowing of urinary stream documented in this encounter Care Teams Carton Gluing Machine Operator Relationship Specialty Start Date End Date Slava Hernandez, PCP - General Physician Commercial Loan Analyst 07/02/1806/02 PA-C [facility] [address] [place] [address] Timothy Smith MD Assigned Heart and 07/23/20 [address] Vascular Provider [address] [place] [id number] documented as of this encounter
--- OUTSIDE RECORDS SUMMARY | 2022-06-22 08:53 | XMS_ITS | Encounter Summary ---
:1940 Author Organization [facility] Address [address] [place] [address] Care Team Providers Name Role Phone Slava Hernandez PA-C Primary Care Provider Timothy Smith MD Unavailable Reason for Visit Reason Onset Date Comments Refill Request 08/25/2020 Eliquis Encounter Details Date Type Department Care Team Description 08/25/[address] [facility] Heart Zarina Smith MD Refill Request (Eliquis) [facility] [place] [address] [place] [id number] [facility] [address] [place] [address] [place] [phone] Social History Tobacco Use Types Packs/Day Years Used Date Never Smoker Smokeless Tobacco: Never Used Alcohol Use Standard Drinks/Week Comments No 0 (1 standard drink = 0.6 oz pure alcoho l) Sex Assigned at Date Recorded Not on file documented as of this encounter Plan of Treatment Upcoming Encounters Date Type Specialty Care Team Description 06/26/2022 Ancillary Procedure Cardiology Seng Canchola MD [address] [facility] [address] [place] [phone] (Wo rk) 08/16/2022 Ancillary Procedure Cardiology Timothy Smith MD [address] [place] [phone] (Wo rk) 08/16/2022 Office Visit Cardiology Timothy Smith MD [address] [place] [id number] (Wo rk) documented as of this encounter Visit Diagnoses Diagnosis Paroxysmal atrial fibrillation (H) Atrial fibrillation documented in this encounter Care Teams Regional Sales Leader Relationship Specialty Start Date End Date Slava Hernandez, PCP - General Physician Medical Radiation Dosimetrist 07/02/1806/02 [facility] [address] [place] [address] Timothy Smith MD Assigned Heart and 07/23/20 [address] Vascular Provider [address] [place] [id number] documented as of this encounter
--- OUTSIDE RECORDS SUMMARY | 2022-06-22 08:53 | XMS_ITS | Encounter Summary ---
:1940 Author Organization [facility] Address [address] [place] [address] Care Team Providers Name Role Phone Slava Hernandez PA-C Primary Care Provider Reason for Referral (Routine) - Closed Specialty Diagnoses / Procedures Referred By Contact Refer red To Contact Diagnoses Persistent atrial fibrillation (H) Ankur Smith MD [address] [place] [address] Referral ID Status Reason Start Date Expiration Date Visits Requ ested Visits Authorized [id number] Closed 07/07/2020 07/07/2021 1 1 (Routine) - Closed Specialty Diagnoses / Procedures Referred By Contact Refer red To Contact Diagnoses Persistent atrial fibrillation (H) Ankur Smith MD [address] [place] [address] Referral ID Status Reason Start Date Expiration Date Visits Requ ested Visits Authorized [id number] Closed 07/07/2020 07/07/2021 1 1 Reason for Visit Reason Comments Atrial Fib (Routine) - Closed Specialty Diagnoses / Procedures Referred By Contact Refer red To Contact Diagnoses Persistent atrial fibrillation (H) Ankur Smith MD [address] [place] [id number] Referral ID Status Reason Start Date Expiration Date Visits Requ ested Visits Authorized [id number] Closed 06/25/2019 06/24/2020 1 1 Encounter Details Date Type Department Care Team Description 07/07/2020 Office Visit [facility] Ankur Smith MD Persistent atrial [facility] [address] (H) [facility] [address] [address] [place], [place] [address] [address] [place], [place] (Work) [phone] Social History Tobacco Use [...] / COVID-19? documented as of this encounter Last Filed Vital Signs Vital Sign Reading Time Taken Comments Blood Pressure 98/64 07/07/2020 10:43 AM CDT Pulse 70 07/07/2020 10:43 AM CDT Temperature - - Respiratory Rate - - Oxygen Saturation 94% 07/07/2020 10:43 AM CDT Inhaled Oxygen Concentration - - Weight 130.2 kg (287 lb) 07/07/2020 10:43 AM CDT Height 180.3 cm (5' 11) 07/07/2020 10:43 AM CDT Body Mass Index 40.03 07/07/2020 10:43 AM CDT documented in this encounter Progress Notes Ankur Smith - 07/07/2020 11:14 AM CDT Service Date: 07/07/2020 CLINIC NOTE HISTORY OF PRESENT ILLNESS: I saw Mr. Villa for followup of atrial fibrillation. He is an 79-year-old white male with a history of coronary artery disease and previous CABG. He had previous atrial flutter ablation and received a dual- chamber pacemaker for sinus node dysfunction. Over the last few years, he has developed persistent atrial fibrillation. He has been on rate control and anticoagulation medications. The patient currently is taking Eliquis 2.5 mg in the morning and 5 mg in the evening. Hehas not had any bleeding or stroke. Symptomatically, he has some fatigue. He denies shortness of breath, chest pain. With position changes, he has dizziness but has not had syncope or near syncope. PHYSICAL EXAMINATION: VITAL SIGNS: Blood pressure was 98/64, heart rate 70 beats per minute, body weight 287 pounds. HEENT: The eyes and ENT were unremarkable. GENERAL: He walks with a cane. CARDIOVASCULAR EXAMINATION: Showed no remarkable abnormalities. ABDOMINAL EXAMINATION: Showed severe obesity. EXTREMITIES: There was no pedal edema. Recent pacemaker interrogation showed about 30% ventricular pacing. ASSESSMENT AND RECOMMENDATIONS: Mr. Villa has some fatigue. His blood pressure is relatively low andhe has apparent symptoms of orthostatic hypotension. I therefore reduced the dose of Toprol-XL from 50 to 25 mg p.o. daily. He will continue the other medications. Regarding his fatigue, he may come to our office for further evaluation if it is getting worse. His cardiology followup is scheduled for 1 year. cc: HANK Handley [place] [phone] ANKUR SMITH MD MT: [place] Name: RADHA VILLA Account: [id number] : 1940 Service Date: 07/07/2020 Document: [id number] Ankur Smith - 07/07/2020 10:45 AM CDT HPI and Plan: See dictation Orders Placed This Encounter Procedures ??? Follow-Up with Process Plant Operator ??? Follow-Up with Cardiac Advanced Practice Provider Orders Placed This Encounter Medications ??? metoprolol succinate ER (TOPROL-XL) 50 MG 24 hr tablet Sig: Take 0.5 tablets (25 mg) by mouth daily Dispense: 90 tablet Refill: 3 Medications Discontinued During This Encounter Medication Reason ??? PANTOPRAZOLE SODIUM PO Therapy completed ??? tamsulosin (FLOMAX) 0.4 MG capsule Medication Reconciliation Clean Up ??? metoprolol succinate ER (TOPROL-XL) 50 MG 24 hr tablet Encounter Diagnosis Name Primary? Persistent atrial fibrillation (H) CURRENT MEDICATIONS: Current Outpatient Medications Medication Sig Dispense Refill ??? ACYCLOVIR 400 MG OR TABS 1 TABLET 3 TIMES DAILY-as need for Cold sores 30 6 ??? apixaban ANTICOAGULANT (ELIQUIS) 5 MG tablet Take 1 tablet (5 mg) by mouth 2 times daily (Patient taking differently: Take 7.5 mg by mouth 2 times daily Pt is taking 0.5 tablets (2.5mg) Morning and1 tablet (5 mg) Evening For a total of 1.5 tablets daily Or 7.5 mg daily) 180 tablet 3 ??? celecoxib (CELEBREX) 200 MG capsule Take 200 mg by mouth 2 times daily ??? fenofibrate 160 MG tablet Take 160 mg by mouth daily. ??? furosemide (LASIX) 40 MG tablet Take 40 mg by mouth daily ??? GLIPIZIDE PO Take 5 mg by mouth 2 times daily (before meals) ??? metFORMIN (GLUCOPHAGE) 500 MG tablet Take 2 tablets (1,000 mg) by mouth 2 times daily (with meals) (Patient taking differently: Take 1,000 mg by mouth daily ) 60 tablet ??? metoprolol succinate ER (TOPROL-XL) 50 MG 24 hr tablet Take 0.5 tablets (25 mg) by mouth daily 90 tablet 3 ??? nitroGLYcerin (NITROSTAT) 0.[address] 1 tablet (0.4 mg) under the tongue every 5 minutes as needed for chest pain 100 tablet 3 ??? pravastatin (PRAVACHOL) 80 MG tablet Take 80 mg by mouth At Bedtime ??? tamsulosin (FLOMAX) 0.4 MG capsule Take 1 capsule (0.4 mg) by mouth daily 90 capsule 4 ALLERGIES Allergies Allergen Reactions ??? No Known Allergies PAST MEDICAL HISTORY: Past Medical History: Diagnosis Date ??? Arthritis ??? Atrial flutter (H) sp ablation 02/27/2013 ??? Coronary artery disease sp CABG ??? Hypertension ??? Melanoma (H) right eye ??? Mumps ??? Persistent atrial fibrillation (H) ??? Sinus node dysfunction (H) with recurrent near syncope, PM 02/03/2016 ??? Sleep apnea ??? Type II diabetes mellitus (H) PAST SURGICAL HISTORY: Past Surgical History: Procedure Laterality Date ??? C CABG, ARTERY-VEIN, FOUR 1986 ??? CATHETER, ABLATION 01/2013 Atrial flutter ??? [...] education level: None Occupational History ??? None Social Needs ??? Financial resource strain: None ??? Food insecurity Worry: None Inability: None ??? Transportation needs Medical: None Non-medical: None Tobacco Use ??? Smoking status: Never Smoker ??? Smokeless tobacco: Never Used Substance and Sexual Activity ??? Alcohol use: No ??? Drug use: No ??? Sexual activity: None Lifestyle ??? Physical activity Days per week: None Minutes per session: None ??? Stress: None Relationships ??? Social connections Talks on phone: None Gets together: None Attends taoist service: None Active member of club or organization: None Attends meetings of clubs or organizations: None Relationship status: None ??? Intimate partner violence Fear of current or ex partner: None Emotionally abused: None Physically abused: None Forced sexual activity: None Other Topics Concern ??? Parent/sibling w/ CABG, WI or angioplasty before 65F 55M? No ??? [...] Not Asked Social History Narrative ??? None Review of Systems: Skin: Negative Eyes: Positive for glasses eye cancer removed ENT: Negative for Respiratory: Positive for sleep apnea;CPAP Cardiovascular: lightheadedness;fatigue;Positive for gets a feeeling of passing out when sitting down in easy chair every time he sits down in it., low energy Gastroenterology: Negative Genitourinary: Negative Musculoskeletal: Positive for back pain;neck pain Neurologic: Negative Psychiatric: Negative Heme/Lymph/Imm: Positive for easy bruising Endocrine: Positive for diabetes Physical Exam: Vitals: BP 98/64 (BP Location: Right arm, Patient Position: Sitting, Cuff Size: Adult Large) Pulse70 Ht 1.803 m (5' 11) Wt 130.2 kg (287 lb) SpO2 94% BMI 40.03 kg/m?? Constitutional: cooperative, alert and oriented, well developed, well nourished, in no acute distress morbidly obese uses a walker Skin: warm and dry to the touch pacemaker incision in the left infraclavicular area was well-healed Head: normocephalic, no masses or lesions Eyes: pupils equal and round wear eye glasses Lymph: ENT: no pallor or cyanosis Neck: JVP normal JVP 10-12 JVP difficult to assess due to body habitus however appears to be elevated slightly above chin level Respiratory: clear to auscultation Bibasilar crackles Cardiac: regular rhythm irregularly irregular rhythm pulses full and equal pulses below the femoral arteries are diminished right radial artery;2+ left radial artery;2+ GI: abdomen soft obese distended and firm Extremities and Muscular Skeletal: no deformities, clubbing, cyanosis, erythema observed 1+ wearin compression stockings Neurological: no gross motor deficits Psych: Alert and Oriented x 3 CC Ankur Smith MD [address] [place] [id number] documented in this encounter Plan of Treatment Upcoming Encounters Date Type Specialty Care Team Description 06/26/2022 Ancillary Procedure Cardiology Seng Canchola MD [address] [place] [id number] (Wo rk) 08/16/2022 Ancillary Procedure Cardiology Ankur Smith MD [address] [place] [id number] (Wo rk) 08/16/2022 Office Visit Cardiology Ankur Smith MD [address] [place] [address] (Wo rk) Scheduled Referrals Name Type Priority Associated Diagnoses Order S chedule Follow-Up with Referral Routine Persistent atrial Expected : Process Plant Operator fibrillation 03/29/20 (Approximate), Expires: 07/27/2022 Follow-Up with Cardiac Referral Routine Persistent atrial Expected: Advanced Practice Provider fibrillation 1 (Approximate), Expires: 11/19/2021 documented as of this encounter Visit Diagnoses Diagnosis Persistent atrial fibrillation (H) Atrial fibrillation documented in this encounter Care Teams Machine Adjuster Relationship Specialty Start Date End Date Slava Hernandez, PAIlanaC PCP - General Physician Lead Generator 07/02/18 06/29/21 [facility] [address] [place] [address] documented as of this encounter
--- OUTSIDE RECORDS SUMMARY | 2022-06-22 08:53 | XMS_ITS | Encounter Summary ---
:1940 Author Organization [facility] Address [address] [place] [address] Care Team Providers Name Role Phone Slava Hernandez PA-C Primary Care Provider Timothy Smith MD Unavailable Reason for Referral CV Testing (Routine) - Closed Specialty Diagnoses / Procedures Referred By Contact Refer red To Contact Diagnoses Cardiac pacemaker in situ Chris De Leon MD Procedures Cardiac Device Check - In Clinic [address] [place] [id number] Referral ID Status Reason Start Date Expiration Date Visits Requ ested Visits Authorized [id number] Closed 11/16/2020 11/16/2021 1 1 T VENDOR Reason for Visit CV Testing (Routine) - Closed Specialty Diagnoses / Procedures Referred By Contact Refer red To Contact Diagnoses Cardiac pacemaker in situ Chris De Leon MD Procedures Cardiac Device Check - Remote [address] [place] [id number] Referral ID Status Reason Start Date Expiration Date Visits Requ ested Visits Authorized [id number] Closed 08/03/2020 08/03/2021 1 1 Encounter Details Date Type Department Care Team Description 11/16/2020 Ancillary Procedure [facility] Chris De Leon Cardiac pacemaker in [facility] situ Heart Care [address] [facility] [address] [place] [address] [place] [phone] Social History Tobacco Use Types Packs/Day Years [...] MD [address] [place] [place] [id number] (Wo rk) 08/16/2022 Ancillary Procedure Cardiology Timothy Smith MD [address] [place] [id number] (Wo rk) 08/16/2022 Office Visit Cardiology Timothy Smith MD [address] [place] [id number] (Wo rk) documented as of this encounter Procedures Procedure Name Priority Date/Time Associated Comments Diagnosis INTERROGATION DEVICE Routine 11/16/2020 11:11 Cardiac pacemake r Results for this EVAL REMOTE PACER UP AM FRUIT VENDOR in situ procedu re are in TO 90 DAYS the results section. documented in this encounter Results PM DEVICE PROGRAMMING EVAL, DUAL LEAD PACER (02/16/2021 9:51 AM CDT) Component Value Ref Test Analysis Performed Pathologis t Range Method Time At Signature Date Time [id number] [employer] Interrogation Session Implantable [employer] Pulse Generator Sustainability Consultant Implantable L121 ESSENTIO EL [employer] Pulse Generator Model Implantable [id number] [employer] Pulse Generator Serial Number Type In Clinic [facility] Interrogation Session Clinic Name [facility] [employer] Implantable Pacemaker [employer] Pulse Generator Type Implantable [id number] [employer] Pulse Generator Implant Date Implantable Lead [employer] [facility]UL Sustainability Consultant Implantable Lead [id number] Tendril MEDTRONI C Model STS Implantable Lead [id number] [employer] Serial Number Implantable Lead [id number] [employer] Implant Date Implantable Lead Bipolar Lead [employer] Polarity Type Implantable Lead UNKNOWN [employer] Location Detail 1 Implantable Lead Right Atrium [facility] Location Implantable Lead [facility] RAUL Sustainability Consultant Implantable Lead 2088TC Tendril [employer] C Model STS Implantable Lead [id number] [employer] Serial Number Implantable Lead [id number] [employer] Implant Date Implantable Lead Bipolar Lead [employer] Polarity Type Implantable Lead UNKNOWN [employer] Location Detail 1 Implantable Lead Right Ventricle [facility] IC Location Brandon Setting VVIR [employer] Mode (NBG Code) Brandon Setting 60 {beats}/ [employer] Lower Rate Limit min Brandon Setting 130 {beats}/ [employer] Maximum Sensor min Rate Brandon Setting 300.0 ms [employer] HANS Delay Low Brandon Setting 300.0 ms [employer] PAV Delay Low Brandon Setting 300.0 ms [employer] PAV Delay High Brandon Setting AT Unknown [employer] Mode Switch Mode Lead Channel Off [employer] Setting Sensing Polarity Lead Channel 0.15 mV [employer] Setting Sensing Sensitivity Lead Channel Adaptive [employer] Setting Sensing Adaptation Mode Lead Channel Bipolar [employer] Setting Sensing Polarity Lead Channel 1.5 mV [employer] Setting Sensing Sensitivity Lead Channel Adaptive [facility] Setting Sensing Adaptation Mode Lead Channel Unknown [facility] Setting Pacing Polarity Lead Channel Fixed Pacing [facility]IC Setting Pacing Capture Mode Lead Channel Bipolar [employer] Setting Pacing Polarity Lead Channel 0.4 ms [employer] Setting Pacing Pulse Width Lead Channel 1.3 V [employer] Setting Pacing Amplitude Lead Channel Adaptive [facility] Setting Pacing Capture Mode Zone Setting VT [facility] Type Category Zone Setting VT [facility] Vendor Type Category Zone Setting 375.0 ms [employer] Detection Interval Lead Channel 421.0 ohm [employer] Impedance Value Lead Channel 1.6000 V [employer] Pacing Threshold Amplitude Lead Channel 0.4 ms [facility] Pacing Threshold Pulse Width Lead Channel 529.0 ohm [employer] Impedance Value Lead Channel 17.1 mV [employer] Sensing Intrinsic Amplitude Lead Channel 0.6000 V [employer] Pacing Threshold Amplitude Lead Channel 0.4 ms [employer] Pacing Threshold Pulse Width Battery Status Beginning of [employer] Service Battery 10.5 yrs [employer] Remaining Longevity Brandon Statistic 39 % [employer] RV Percent Paced Episode 765 [employer] Statistic Total Count Episode VT [facility] Statistic Type Category Episode NSVT [facility] Statistic Vendor Type Category Episode [id number] [employer] Statistic Total Date Time End Episode 80 [facility] Statistic Recent Count Episode VT [facility] Statistic Type Category Episode NSVT [facility] Statistic Vendor Type Category Episode SunOct 15 [employer] Statistic Recent 03:43:58 FRUIT VENDOR 2019 Date Time Start Episode [id number] [employer] Statistic Recent Date Time End Anatomical Region Laterality Modality Other Specimen (Source) Anatomical Location Collection Method / Collectio n Time Received Time / Laterality Volume 02/16/2021 Narrative 02/21/2021 9:24 AM CDT [employer] Essentio (D) Pacemaker Device Check Patient seen in clinic for device evalua tion and iterative programming. AP: NA ?% ?? ROUSTABOUT CREW PUSHER: 39 % ?? Mode: VVIR 60-130 ?? Underlying Rhythm: AF, HR 74-115 bpm ?? Heart Rate: excellent variability ?? Sensing: WNL ?? Pacing Threshold: WNL ?? Impedance: WNL ?? Battery Status: 10.5 yrs estimated longe vity ?? Device Site: WNL ?? Atrial Arrhythmia: 100% AF, on Eliquis ? ? Ventricular Arrhythmia: 21 episodes sinc e last remote in November. 7 EGMs available for review. 4 of the EGMs are from 12/09/2020 between 6:50pm and 7:15pm, these 4 EGMs show regular VS in the 170-180's and a different near-field morphology. Pt says he rememb ers feeling some lightheadedness maybe around that date, but he can't be sure of the exact date. Durations of these 4 episodes are listed as 21 sec onds - 1 minute 13 seconds, though episode duration is usually over-estimat ed by about 10 seconds on this device. Only 1 of the EGMs shows the ent julia episode, and that episode was 14 seconds. The 3 other available EGMs s how irregular rates and no change in morphology for short bursts of RVR ?? Setting Change: none ?? Care Plan: Scheduled remote in 3 months. ??OV with [facility]O due in 07/2021. Pt asked for a BMP order to check his kidne ys because he's on furosemide. His PMD refills his furosemide, so I asked p t to talk to PMD about this, he agreed. Will review possible NSVT/VT epi sodes with Dr. Smith, see separate encounter. ?? EC RN I have reviewed and interpreted the agustín ce interrogation, settings, programming and nurse's summary. The dev ice is functioning within normal device parameters. I agree with the curr ent findings, assessment and plan. Chris Hinds MD CV CARDIAC SERVICES ORDERABL ES INTERROGATION DEVICE EVAL REMOTE PACER UP TO 90 DAYS (11/16/2020 11:11 AM FRUIT VENDOR) Component Value Ref Test Analysis Performed Pathologis t Range Method Time At Signature Date Time [employer] Interrogation Session Implantable [employer] Pulse Generator Sustainability Consultant Implantable L121 ESSENTIO EL [employer] Pulse Generator Model Implantable [id number] [employer] Pulse Generator Serial Number Type Remote [facility] Interrogation Session Clinic Name [facility] Implantable Pacemaker [employer] Pulse Generator Type Implantable [id number] [employer] Pulse Generator Implant Date Implantable Lead [employer]UL Sustainability Consultant Implantable Lead 8TC Tendril MEDTRONI C Model STS Implantable Lead [id number] [employer] Serial Number Implantable Lead [id number] [employer] Implant Date Implantable Lead Bipolar Lead [employer] Polarity Type Implantable Lead UNKNOWN [employer] Location Detail 1 Implantable Lead Right Atrium [employer] Location Implantable Lead [employer]UL Sustainability Consultant Implantable Lead 8TC Tendril [employer] C Model STS Implantable Lead [id number] [employer] Serial Number Implantable Lead [id number] [employer]IC [...] 375 ms [employer] Detection Interval Lead Channel 420 ohm [employer] Impedance Value Lead Channel 533 ohm [employer] Impedance Value Lead Channel 0.8 V [employer] Pacing Threshold Amplitude Lead Channel 0.4 ms [employer] Pacing Threshold Pulse Width Battery Date [id number] [employer] Time of Measurements Battery Status Beginning of [employer] Service Battery 132 mo [employer] Remaining Longevity Battery 100 % [employer] Remaining Percentage Brandon Statistic [id number] [employer] Date Time Start Brandon Statistic [id number] [employer] Date Time End Brandon Statistic 0 % [employer] RA Percent Paced Brandon Statistic 38 % [employer] RV Percent Paced Episode 0 [employer] Statistic Recent Count Episode AT/AF [facility] Statistic Type Category Episode AF [facility] Statistic Vendor Type Category Episode 0 [employer] Statistic Recent Count Episode SVT [facility] Statistic Type Category Episode SVT [facility] Statistic Vendor Type Category Episode 64 [facility] Statistic Recent Count Episode VT [facility]TR[facility]IC Statistic Type Category Episode NSVT [employer] Statistic Vendor Type Category Episode 6 [facility] Statistic Recent Count Episode VT [facility]TR[employer]IC Statistic Type Category Episode VT [facility]TR[employer]IC Statistic Vendor Type Category Episode [id number] [employer] Statistic Recent Date Time Start Episode [id number] [employer] Statistic Recent Date Time End Episode [id number] [employer] Statistic Recent Date Time Start Episode [id number] [employer] Statistic Recent Date Time End Episode [id number] [employer] Statistic Recent Date Time Start Episode [id number] [employer] Statistic Recent Date Time End Episode [id number] [employer] Statistic Recent Date Time Start Episode [id number] [facility] Statistic Recent Date Time End Episode APM-97 [employer] Identifier Episode Type Periodic EGM [employer] Category Episode Date [id number] [employer] Time Episode [id number] [employer] Identifier Episode Type Other [employer]IC Category Episode Date [id number] [employer]IC Time Episode V-1606 [facility]IC Identifier Episode Type VT [facility]IC Category Episode Date [id number] [employer] Time Episode Duration 20 s MEDTR[employer]IC Episode V-1605 [employer]IC Identifier Episode Type VT [facility]TR[employer]IC Category Episode Date [id number] [employer]IC Time Episode Duration 14 s MEDTR[employer]IC Episode V-1604 [employer]IC Identifier Episode Type VT [facility]IC Category Episode Date [id number] [employer]IC Time Episode Duration 17 s MEDTRONIC Episode V-1603 MED[employer]IC Identifier Episode Type VT [facility]IC Category Episode Date [id number] [employer] Time Episode Duration 14 s MEDTRONIC Episode V-1602 [facility]IC Identifier Episode Type VT [facility]IC Category Episode Vendor VT [facility]IC Type Category Episode Date [id number] [facility] Time Episode Duration 29 s MEDTRONIC Episode V-1601 [employer] Identifier Episode Type VT [facility]IC Category Episode Date [id number] [facility] Time Episode Duration 16 s MEDTRONIC Episode V-1600 [employer]IC Identifier Episode Type VT [facility]IC Category Episode Date [id number] [employer] Time Episode Duration 15 s MEDTRONIC Episode V-1599 [employer]IC Identifier Episode Type VT [facility]IC Category Episode Vendor VT [facility]IC Type Category Episode Date [id number] [facility] Time Episode Duration 175 s MEDTRONIC Episode V-1598 [employer]IC Identifier Episode Type VT [facility]IC Category Episode Date [id number] [facility] Time Episode Duration 14 s MEDTRONIC Episode V-1597 [employer]IC Identifier Episode Type VT [facility]TR[facility]IC Category Episode Date [id number] [employer] Time Episode Duration 14 s MEDTRONIC Episode V-1596 [employer]IC Identifier Episode Type VT [facility]TR[employer]IC Category Episode Date [id number] [employer] Time Episode Duration 16 s MEDTRONIC Episode V-1595 [employer]IC Identifier Episode Type VT [facility]TR[employer]IC Category Episode Date [id number] [employer] Time Episode Duration 16 s MEDTRONIC Episode V-1592 [employer]TR[employer]IC Identifier Episode Type VT [facility]TR[employer]IC Category Episode Vendor VT [facility]IC Type Category Episode Date [id number] [facility] Time Episode Duration 129 s MEDTRONIC Episode V-1591 [employer]IC Identifier Episode Type VT [facility]TR[employer]IC Category Episode Vendor VT [facility]IC Type Category Episode Date [id number] [employer]IC Time Episode Duration 21 s MEDTRONIC Episode V-1590 [employer]IC Identifier Episode Type VT [facility]TR[facility]IC Category Episode Vendor VT [facility]IC Type Category Episode Date [id number] [facility] Time Episode Duration 66 s MEDTRONIC Episode V-1585 [facility]IC Identifier Episode Type VT [facility] Category Episode Vendor VT [facility] Type Category Episode Date [id number] [facility] Time Episode Duration 67 s [facility] Anatomical Region Laterality Modality Other Specimen (Source) Anatomical Collection Method Collection Time Re ceived Time Location / / Volume Laterality 11/16/2020 12:42 AM FRUIT VENDOR Narrative 11/22/2020 12:22 PM FRUIT VENDOR [employer] Essentio (S) Remote PPM Device Check ROUSTABOUT CREW PUSHER: 38%, Chronic AFib, taking Eliquis Mode: VVIR Presenting Rhythm: ROUSTABOUT CREW PUSHER Heart Rate: adequate heart rates per his togram Sensing: stable Pacing Threshold: stable Impedance: stable Battery Status: 11 years remaining Atrial Arrhythmia: n/a Ventricular Arrhythmia: 46 ventricular h igh rates. 8 EGMs available continue to show irregular VS events sug gestive of RVR, episodes lasting 14 seconds to 2 minutes 55 seconds, rate s 160-200bpm. Care Plan: F/u annual threshold in 3 mon ths, order placed. LM with results. JULY KeenT I have reviewed and interpreted the agustín ce interrogation, settings, programming and nurse's summary. The dev ice is functioning within normal device parameters. I agree with the curr ent findings, assessment and plan. Chris Hinds MD CV CARDIAC SERVICES ORDERABL ES documented in this encounter Visit Diagnoses Diagnosis Cardiac pacemaker in situ SSS (sick sinus syndrome) (H) - Primary Sinoatrial node dysfunction Cardiac pacemaker in situ documented in this encounter Care Teams Machining Manager Relationship Specialty Start Date End Date Slava Hernandez, PCP - General Physician Care Manager 07/02/1806/02 PA-C [facility] [address] [place], [place] [id number] Timothy Smith MD Assigned Heart and 07/23/20 [address] Vascular Provider [address] [place] [address] documented as of this encounter
--- OUTSIDE RECORDS SUMMARY | 2022-06-22 08:53 | XMS_ITS | Encounter Summary ---
:1940 Author Organization [facility] Address [address] [place] [address] Care Team Providers Name Role Phone Slava Hernandez PA-C Primary Care Provider Timothy Smith MD Unavailable Encounter Details Date Type Department Care Team Description 04/26/2021 Travel Social History Tobacco Use Types Packs/Day [...] [address] [place] [id number] (Wo rk) 08/16/2022 Ancillary Procedure Cardiology Timothy Smith MD [address] [place] [id number] (Wo rk) 08/16/2022 Office Visit Cardiology Timothy Smith MD [address] [place] [id number] (Wo rk) documented as of this encounter Visit Diagnoses Not on filedocumented in this encounter Care Teams Event Planner Relationship Specialty Start Date End Date Slava Hernandez, PCP - General Physician Knitting Demonstrator 07/02/1806/02 [facility] [address] [place] [address] Timothy Smith MD Assigned Heart and 07/23/20 [address] [facility] Vascular Provider [address] [place] [address] documented as of this encounter
--- OUTSIDE RECORDS SUMMARY | 2022-06-22 08:53 | XMS_ITS | Encounter Summary ---
:1940 Author Organization [facility] Address [address] [place] [address] Care Team Providers Name Role Phone Slava Hernandez PA-C Primary Care Provider Ankur Smith MD Unavailable Reason for Referral CV Testing (Routine) - Closed Specialty Diagnoses / Procedures Referred By Contact Refer red To Contact Cardiology Diagnoses Sustained VT (ventricular tachycardia) Ru Cv Cardiac Services Sh Cv Cardiac Services Procedures Echocardiogram Complete [facility] TTE W/DOPPLER, COMPLETE [facility] ECHO COMPLETE W DOPPLER W CONTRAST [facility] ECHO COMPLETE W DOPPLER W/O CONTRAST [facility] IV PUSH SINGLE, INITIAL SUBSTANCE ZZ[facility] US GUIDE FOR PERICARDIOCENTESIS [address] ZZ[facility] ECHO MYOCARD BX ZZC INJECTION, PERFLUTREN LIPID MICROSPHERES, PER ML ZZ[facility] STATISTIC IV PUSH SINGLE INITIAL SUBSTANCE FL ECHO MYOCARD BX FL INJECTION, PERFLUTREN LIPID MICROSPHERES, PER ML FL TTE W/DOPPLER, COMPLETE [address] FL IV PUSH SINGLE, INITIAL S UBSTANCE FL TTE W/DOPPLER, COMPLETE FL TTE W/DOPPLER, COMPLETE HC US GUIDE FOR PERICARDIOCENTESIS HC ECHO MYOCARD BX HC IV PUSH SINGLE, INITIAL SUBSTANCE HC STATISTIC IV PUSH [place] [address] HC ECHO COMPLETE W DOPPLER W CONTRAST HC ECHO COMPLETE W DOPPLER W/O CONTRAST [id number] Referral ID Status Reason Start Date Expiration Date Visits Requ ested Visits Authorized [id number] Closed 02/17/2021 02/17/2022 1 1 Reason for Visit CV Testing (Routine) - Closed Specialty Diagnoses / Procedures Referred By Contact Refer red To Contact Cardiology Diagnoses Sustained VT (ventricular tachycardia) Ru Cv Cardiac Services Sh Cv Cardiac Services Procedures Echocardiogram Complete ZZHC TTE W/DOPPLER, COMPLETE ZZ[facility] ECHO COMPLETE W DOPPLER W CONTRAST ZZ[facility] ECHO COMPLETE W DOPPLER W/O CONTRAST ZZ[facility] IV PUSH SINGLE, INITIAL SUBSTANCE ZZHC US GUIDE FOR PERICARDIOCENTESIS [address] [facility] [address] [employer] [address] [facility] ZZHC ECHO MYOCARD BX ZZC INJECTION, PERFLUTREN LIPID MICROSPHERES, PER ML ZZHC STATISTIC IV PUSH SINGLE INITIAL SUBSTANCE FL ECHO MYOCARD BX FL INJECTION, PERFLUTREN LIPID MICROSPHERES, PER ML FL TTE W/DOPPLER, COMPLETE [address] FL IV PUSH SINGLE, INITIAL S UBSTANCE FL TTE W/DOPPLER, COMPLETE FL TTE W/DOPPLER, COMPLETE HC US GUIDE FOR PERICARDIOCENTESIS HC ECHO MYOCARD BX HC IV PUSH SINGLE, INITIAL SUBSTANCE HC STATISTIC IV PUSH SINGLE [place] [address] HC ECHO COMPLETE W DOPPLER W CONTRAST HC ECHO COMPLETE W DOPPLER W/O CONTRAST [id number] Referral ID Status Reason Start Date Expiration Date Visits Requ ested Visits Authorized [id number] Closed 02/17/2021 02/17/2022 1 1 Encounter Details Date Type Department Care Team Description 03/21/2021 Hospital Encounter [facility] Ankur Smith MD Sustained [place] [address] CLEM (ventr icular [facility] [address] tachycardia) (H) [address] [facility] [place] [phone] (Primary Dx) [facility] [phone] [address] (Work) [place] [address] Social History Tobacco Use Types Packs/Day Years Used Date Never Smoker Smokeless Tobacco: Never Used Alcohol Use Standard Drinks/Week Comments No 0 (1 standard drink = 0.6 oz pure alcoho l) Sex Assigned at Date Recorded Not on file COVID-19 Exposure Response Date Recorded In the last month, have you been in contact with No / Unsure 03/21/2021 12:36 PM CDT someone who was confirmed or suspected to have Coronavirus / COVID-19? documented as of this encounter Last Filed Vital Signs Vital Sign Reading Time Taken Comments Blood Pressure 100/68 03/21/2021 1:00 PM CDT Pulse - - Temperature - - Respiratory Rate - - Oxygen Saturation - - Inhaled Oxygen Concentration - - Weight - - Height - - Body Mass Index - - documented in this encounter Medications at Time of Discharge Medication Sig Dispensed Refills Start Date End Date ACYCLOVIR 400 MG OR TABS 1 TABLET 3 TIMES 30 6 04/25 DAILY-as need for Cold sores fenofibrate 160 MG tablet Take 160 mg by 0 mouth daily. furosemide (LASIX) 40 MG Take 40 mg by mouth 0 tablet daily nitroGLYcerin (NITROSTAT) Place 1 tablet (0.4 100 tablet 3 0 02/24/2020 0.4 MG sublingual mg) under the tabletIndications: tongue every 5 Coronary artery disease minutes as needed involving [place] coronary for chest pain artery of [place] heart without angina pectoris apixaban ANTICOAGULANT Take [...] times daily (with with complication (H) meals) metoprolol succinate ER Take 0.5 tablets 90 tablet 3 201903/23/2021 (TOPROL-XL) 50 MG 24 hr (25 mg) by mouth tabletIndications: daily Persistent atrial fibrillation (H) pravastatin (PRAVACHOL) Take 80 mg by mouth 0 06/30/2021 80 MG tablet At Bedtime tamsulosin (FLOMAX) 0.4 Take 1 capsule (0.4 90 capsule 4 11/201807/04/2021 MG capsuleIndications: mg) by mouth daily Urinary frequency, Weak urinary stream documented as of this encounter Plan of Treatment Upcoming Encounters Date Type Specialty Care Team Description 06/26/2022 Ancillary Procedure Cardiology Seng Canchola MD [address] [place] [place] [id number] (Wo rk) 08/16/2022 Ancillary Procedure Cardiology Ankur Smith MD [address] [place] [id number] (Wo rk) 08/16/2022 Office Visit Cardiology Ankur Smith MD [address] [place] [id number] (Wo rk) documented as of this encounter Procedures Procedure Name Priority Date/Time Associated Diagnosis Comme nts ECHO COMPLETE WITH Routine 03/21/2021 1:18 PM Sustained VT Res ults for this CONTRAST CDT (ventricular procedure are i n tachycardia) (H) the results section. documented in this encounter Results ECHO COMPLETE WITH CONTRAST (03/21/2021 1:18 PM CDT) Anatomical Region Laterality Modality Echocardiography Specimen (Source) Anatomical Collection Method Collection Time Re ceived Time Location / / Volume Laterality 03/21/2021 12:48 PM CDT Narrative 03/21/2021 2:22 PM CDT [id number]^KEELEY^ANKUR [facility] Heart Echocardiography Laboratory [address] [facility] [address] [place] [id number] Name: RAHDA FAROOQ : 1940 Study Date: 03/21/2021 12:48 PM Age: 80 yrs Gender: Male Patient Location: SHCVCV Reason For Study: Sustained VT (ventricu lar tachycardia) (H) Ordering Physician: ANKUR SMITH Referring Physician: ANKUR SMITH Performed By: ZEHRA Saenz BSA: 2.5 m2 Height: 71 in Weight: 285 lb HR: 73 BP: 100/68 mmHg Procedure Complete Echo Adult. Vijaya ([facility] #[id number]) given intravenously. Interpretation Summary The visual ejection fraction is estimate d at 50-55%. There is borderline global hypokinesia o f the left ventricle. No significant valvular heart disease. The patient exhibited frequent PVCs. Left Ventricle The left ventricle is normal in size. Th ere is normal left ventricular wall thickness. The visual ejection fraction is estimated at 50-55%. Diastolic function not assessed due to atrial fibr illation. There is borderline global hypokinesia of the left ventricle. Right Ventricle Moderately decreased right ventricular s ystolic function. Atria The left atrium is moderately dilated. T he right atrium is moderately dilated. There is no color Doppler evidence of an atrial shunt. Mitral Valve The mitral valve leaflets are mildly thi ckened. There is moderate mitral annular calcification. There is trace mi tral regurgitation. Tricuspid Valve There is trace tricuspid regurgitation. The right ventricular systolic pressure is approximated at 36.[address] us the right atrial pressure. IVC diameter and respiratory changes fall in to an intermediate range suggesting an RA pressure of 8 mmHg. Aortic Valve There is trivial trileaflet aortic scler osis. There is trace to mild aortic regurgitation. Pulmonic Valve There is trace pulmonic valvular regurgi tation. Vessels The aortic root is normal size. The asce nding aorta is Mildly dilated. Pericardium There is no pericardial effusion. Rhythm The rhythm was atrial fibrillation. The patient exhibited frequent PVCs. MMode/2D Measurements & Calculations IVSd: 1.1 cm LVIDd: 5.2 cm LVIDs: 3.3 cm LVPWd: 1.1 cm FS: 35.8 % LV mass(C)d: 216.8 grams LV mass(C)dI: 88.4 grams/m2 Ao root diam: 3.5 cm asc Aorta Diam: 3.7 cm LVOT diam: 2.5 cm LVOT area: 4.9 cm2 LA Volume (BP): 120.0 ml LA Volume Index (BP): 49.0 ml/m2 RWT: 0.42 Doppler Measurements & Calculations MV E max pascual: 103.8 cm/sec MV dec time: 0.20 sec PA acc time: 0.10 sec PI end-d pascual: 140.1 cm/sec TR max pascual: 300.0 cm/sec TR max P.0 mmHg E/E' av.4 Lateral E/e': 11.1 Medial E/e': 17.6 Report approved by: Pop Byrnes 02:22 PM Procedure Note Steve Brush MD - 03/21/2021Form atting of this note might be different from the original. [id number]^KEELEY^[facility] Heart Echocardiography Laboratory [address] [facility] [address] [place] [id number] Name: RADHA FAROOQ : 1940 Study Date: 03/21/2021 12:48 PM Age: 80 yrs Gender: Male Patient Location: [facility] Reason For Study: Sustained VT (ventricu lar tachycardia) (H) Ordering Physician: ANKUR SMITH Referring Physician: ANKUR SMITH Performed By: MCKAY Saenz BSA: 2.5 m2 Height: 71 in Weight: 285 lb HR: 73 BP: 100/68 mmHg Procedure Complete Echo Adult. Optison ([facility] #[id number]) given intravenously. Interpretation Summary The visual ejection fraction is estimate d at 50-55%. There is borderline global hypokinesia o f the left ventricle. No significant valvular heart disease. The patient exhibited frequent PVCs. Left Ventricle The left ventricle is normal in size. Th ere is normal left ventricular wall thickness. The visual ejection fraction is estimated at 50-55%. Diastolic function not assessed due to atrial fibr illation. There is borderline global hypokinesia of the left ventricle. Right Ventricle Moderately decreased right ventricular s ystolic function. Atria The left atrium is moderately dilated. T he right atrium is moderately dilated. There is no color Doppler evidence of an atrial shunt. Mitral Valve The mitral valve leaflets are mildly thi ckened. There is moderate mitral annular calcification. There is trace mi tral regurgitation. Tricuspid Valve There is trace tricuspid regurgitation. The right ventricular systolic pressure is approximated at 36.[address] us the right atrial pressure. IVC diameter and respiratory changes fall in to an intermediate range suggesting an RA pressure of 8 mmHg. Aortic Valve There is trivial trileaflet aortic scler osis. There is trace to mild aortic regurgitation. Pulmonic Valve There is trace pulmonic valvular regurgi tation. Vessels The aortic root is normal size. The asce nding aorta is Mildly dilated. Pericardium There is no pericardial effusion. Rhythm The rhythm was atrial fibrillation. The patient exhibited frequent PVCs. MMode/2D Measurements & Calculations IVSd: 1.1 cm LVIDd: 5.2 cm LVIDs: 3.3 cm LVPWd: 1.1 cm FS: 35.8 % LV mass(C)d: 216.8 grams LV mass(C)dI: 88.4 grams/m2 Ao root diam: 3.5 cm asc Aorta Diam: 3.7 cm LVOT diam: 2.5 cm LVOT area: 4.9 cm2 LA Volume (BP): 120.0 ml LA Volume Index (BP): 49.0 ml/m2 RWT: 0.42 Doppler Measurements & Calculations MV E max pascual: 103.8 cm/sec MV dec time: 0.20 sec PA acc time: 0.10 sec PI end-d pascual: 140.1 cm/sec TR max pascual: 300.0 cm/sec TR max P.0 mmHg E/E' av.4 Lateral E/e': 11.1 Medial E/e': 17.6 Report approved by: Pop Byrnes 02:22 PM Ankur Smith MD CV ECHO ORDERABLES documented in this encounter Visit Diagnoses Diagnosis Sustained VT (ventricular tachycardia) - Primary Paroxysmal ventricular tachycardia documented in this encounter Administered Medications Inactive Administered Medications - up to 3 most recent administrations Medication Order MAR Action Action Date Dose Rate Site perflutren diluted 1mL to 2mL with Given 03/21/2021 1:19 PM CDT 3 mLs saline (OPTISON) diluted injection 3 mL 3 mL, Intravenous, ONCE, On Sun03/21/21 at 1330, For 1 dose, [facility] [id number] sodium chloride (PF) 0.9% PF flush 10 mL Given 03/21/2021 1:19 PM CDT 10 mLs 10 mL, Intravenous, ONCE, On Sun03/21/21 at 1330, For 1 dose documented in this encounter Care Teams Pipelayer Relationship Specialty Start Date End Date Slava Hernandez, PCP - General Physician Veneer Manufacturer 07/02/1806/02 PA-C [facility] [address] [place] [address] Ankur Smith MD Assigned Heart and 07/23/20 [address] [facility] S Vascular Provider [address] [place] [address] documented as of this encounter
--- OUTSIDE RECORDS SUMMARY | 2022-06-22 08:53 | XMS_ITS | Encounter Summary ---
:1940 Author Organization [facility] Address [address] [place] [address] Care Team Providers Name Role Phone Slava Hernandez PA-C Primary Care Provider Timothy Smith MD Unavailable Encounter Details Date Type Department Care Team Description 03/23/2021 Travel Social History Tobacco Use Types Packs/Day Years Used Date Never Smoker Smokeless Tobacco: Never Used Alcohol Use Standard Drinks/Week Comments No 0 (1 standard drink = 0.6 oz pure alcoho l) Sex Assigned at Date Recorded Not on file COVID-19 Exposure Response Date Recorded In the last month, have you been in contact with No / Unsure 03/23/2021 1:22 PM CDT someone who was confirmed or suspected to have Coronavirus / COVID-19? documented as of this encounter Plan of Treatment Upcoming Encounters Date Type Specialty Care Team Description 06/26/2022 Ancillary Procedure Cardiology Seng Canchola MD [address] [place] [id number] (Wo rk) 08/16/2022 Ancillary Procedure Cardiology Timothy Smith MD [address] [place] [phone] (Wo rk) 08/16/2022 Office Visit Cardiology Timothy Smith MD [address] [place] [phone] (Wo rk) documented as of this encounter Visit Diagnoses Not on filedocumented in this encounter Care Teams Handle Attacher Relationship Specialty Start Date End Date Slava Hernandez, PCP - General Physician Handbag Parts Cutter 07/02/1806/02 [facility] [address] [place] [address] Timothy Smith MD Assigned Heart and 07/23/20 [address] [facility] Vascular Provider [address] [place] [address] documented as of this encounter
--- OUTSIDE RECORDS SUMMARY | 2022-06-22 08:53 | XMS_ITS | Encounter Summary ---
:1940 Author Organization [facility] Address [address] [facility] [place] [address] Care Team Providers Name Role Phone Slava Hernandez PA-C Primary Care Provider Timothy Smith MD Unavailable Reason for Visit Reason Onset Date Comments Prior Auth - Medication 11/04/2020 (ELIQUIS) 5 MG t ablet COST TIER EXPECTION - Denied Encounter Details Date Type Department Care Team Description 11/04/2020 Telephone [facility] Heart Zarina Smith MD Prior Auth - Medication [facility] [place] [address] ((ELIQUIS) 5 MG tablet [address] [facility] [address] COST TIER EXPECTION - [facility] [address] [place] [address] Denied) [place] [phone] Social History Tobacco Use Types Packs/Day Years Used Date Never Smoker Smokeless Tobacco: Never Used Alcohol Use Standard Drinks/Week Comments No 0 (1 standard drink = 0.6 oz pure alcoho l) Sex Assigned at Date Recorded Not on file documented as of this encounter Miscellaneous Notes Telephone Encounter - Lacy Washington RN - 11/10/2020 1:35 PM CST Pt called device nurse for a prescription of Eliquis. JNelosnRN ANDER Telephone Encounter - Claire Harvey - 11/05/2020 11:59 AM CST Images from the original note were not included. PRIOR AUTHORIZATION DENIED-Tiering Exception Medication: (ELIQUIS) 5 MG tablet COST TIER EXPECTION - Denied Denial Date: 11/04/2020 Denial Rational: Appeal Information: ANDER Telephone Encounter - Monica Nguyen - 11/04/2020 4:11 PM CST Images from the original note were not included. PA Initiation Medication: (ELIQUIS) 5 MG tablet COST TIER EXPECTION - Insurance Company: [employer] [place] - Pharmacy Filling the Rx: [facility] [address] [place] [place] [address] [phone] Filling Pharmacy Filling Pharmacy Start Date: 11/04/2020 ANDER Telephone Encounter - Viola Arcos - 11/04/2020 2:31 PM CST Prior Authorization Retail Medication Request Medication/Dose: apixaban ANTICOAGULANT (ELIQUIS) 5 MG tablet COST TIER EXPECTION ICD code (if different than what is on RX): Previously Tried and Failed: Rationale: Insurance Name: [employer] Insurance ID: Pharmacy Information (if different than what is on RX) Name: Phone: Patient called in stating the medication is too expensive and is over $500. He cannot afford medication. ANDER documented in this encounter Plan of Treatment Upcoming Encounters Date Type Specialty Care Team Description 06/26/2022 Ancillary Procedure Cardiology Seng Canchola MD [address] [place] [id number] (Wo rk) 08/16/2022 Ancillary Procedure Cardiology Timothy Smith MD [address] [place] [phone] (Wo rk) 08/16/2022 Office Visit Cardiology Timothy Smith MD [address] [place] [phone] (Wo rk) documented as of this encounter Visit Diagnoses Not on filedocumented in this encounter Care Teams Room Server Relationship Specialty Start Date End Date Slava Hernandez, PCP - General Physician Plater Supervisor 07/02/1806/02 PA-C [facility] [address] [place], [place] [id number] Timothy Smith MD Assigned Heart and 07/23/20 [address] Vascular Provider [address] [place] [id number] documented as of this encounter
--- OUTSIDE RECORDS SUMMARY | 2022-06-22 08:53 | XMS_ITS | Encounter Summary ---
:1940 Author Organization [place] Address [address] [place] [address] Care Team Providers Name Role Phone Slava Hernandez PA-C Primary Care Provider Timothy Smith MD Unavailable Reason for Visit Reason Comments Atrial Fib ekg done (Routine) - Closed Specialty Diagnoses / Procedures Referred By Contact Refer red To Contact Diagnoses Sustained VT (ventricular tachycardia) Timothy Smith MD [address] [place] [address] Referral ID Status Reason Start Date Expiration Date Visits Requ ested Visits Authorized [id number] Closed 03/23/2021 03/23/2022 1 1 Encounter Details Date Type Department Care Team Description 04/26/2021 Office Visit [facility] Timothy Smith MD Persistent atrial fibrillation (H) (Prim arnie Dx); [facility] [place] [address] Sustained VT (ventricular ta chycardia) (H); [address] [facility] [address] Morbid obesity (H) [facility] [address] [place] [address] [place] [phone] Social History Tobacco Use Types Packs/Day Years [...] Sign Reading Time Taken Comments Blood Pressure 111/64 04/26/2021 12:33 PM CDT Pulse 64 04/26/2021 12:33 PM CDT Temperature - - Respiratory Rate - - Oxygen Saturation - - Inhaled Oxygen Concentration - - Weight 128.8 kg (284 lb) 04/26/2021 12:33 PM CDT Height - - Body Mass Index 42.55 03/23/2021 1:28 PM CDT documented in this encounter Progress Notes Timothy Smith MD - 04/26/2021 1:17 PM CDT Service Date: 04/26/2021 CLINIC NOTE HISTORY OF PRESENT ILLNESS: I saw Mr. Villa for followup of ventricular tachycardia. He is an 80-year-old white male with a history of coronary artery disease and previous CABG. The patient had a dual-chamber pacemaker implanted for sinus node dysfunction. He has developed persistent atrial fibrillation. He has a normal LV ejection fraction. The patient was found to have multiple episodes of VT on pacemaker interrogation in January. One episode lasted for 1 minute and 13 seconds, meeting the criteria for sustained VT. He had dizziness and palpitations during that time. When I saw him in late March, I increased the dose of metoprolol and had him repeat a Holter monitor for 24 hours. He did not have apparent side effects from the change of the metoprolol dose. On the other hand, he continued to have multiple episodes of ventricular tachycardia. Overall, he had 1490 episodes of nonsustained VT. In addition, he had frequent PVCs. PHYSICAL EXAMINATION: VITAL SIGNS: Blood pressure was 111/64, heart rate 64 beats per minute, body weight 284 pounds. GENERAL: He came to the clinic with a walker. HEENT: Eyes and ENT were unremarkable. CARDIOVASCULAR EXAMINATION: Showed no remarkable changes. ASSESSMENT AND RECOMMENDATIONS: Mr. Villa continued to have frequent runs of ventricular tachycardia. He is at risk of sudden cardiac . I discussed the proposal of ICD implantation with the patient. He is full code and he would like to have ICD upgrade from the pacemaker. I went through the risksand benefits of ICD upgrade today. He is asked to withhold Eliquis for 2 days. After the ICD upgrade, we will continue to monitor for symptoms of VT. If he has symptomatic VT, we may have to add amiodarone at that point. At the present time, the major concern is cardiac arrest and he seemed to be relatively asymptomatic from ventricular tachycardia with the short-lasting episodes. Based on his blood p ressure, there is probably no room to add more metoprolol. He is not a candidate for sotalol becauseof chronic renal insufficiency. Timothy Smith MD cc: Slava Hernandez PA-C [facility] [id number] [place] [id number] Timothy Smith MD MT: francesca Name: RADHA VILLA MRN: [id number] Account: [id number] : 1940 Service Date: 04/26/2021 Document: [id number] Timothy Smith MD - 04/26/2021 12:45 PM CDT HPI and Plan: See dictation No orders of the defined types were placed in this encounter. Orders Placed This Encounter Medications ??? apixaban ANTICOAGULANT (ELIQUIS ANTICOAGULANT) 5 MG tablet Sig: Take 1 tablet (5 mg) by mouth 2 times daily Dispense: 180 tablet Refill: 3 Medications Discontinued During This Encounter Medication Reason ??? apixaban ANTICOAGULANT (ELIQUIS ANTICOAGULANT) 5 MG tablet Reorder Encounter Diagnoses Name Primary? Sustained VT (ventricular tachycardia) (H) ??? Morbid obesity (H) ??? Persistent atrial fibrillation (H) Yes CURRENT MEDICATIONS: Current Outpatient Medications Medication Sig Dispense Refill ??? ACYCLOVIR 400 MG OR TABS 1 TABLET 3 TIMES DAILY-as need for Cold sores 30 6 ??? apixaban ANTICOAGULANT (ELIQUIS ANTICOAGULANT) 5 MG tablet Take 1 tablet (5 mg) by mouth 2 timesdaily 180 tablet 3 ??? celecoxib (CELEBREX) 200 [...] Other Topics Concern ??? Parent/sibling w/ CABG, OR or angioplasty before 65F 55M? No ??? [...] Gatherings with Friends and Family: ??? Attends Islam Services: ??? Active Member of Clubs or Organizations: ??? Attends Club or Organization Meetings: ??? Marital Status: Intimate Partner Violence: ??? Fear of Current or Ex-Partner: ??? Emotionally Abused: ??? Physically Abused: ??? Sexually Abused: Review of Systems: Skin: Negative Eyes: Positive [...] Positive for diabetes Physical Exam: Vitals: BP 111/64 Pulse 64 Wt 128.8 kg (284 lb) BMI 42.55 kg/m?? Constitutional: Skin: Head: Eyes: Lymph: ENT: Neck: Respiratory: Cardiac: GI: Extremities and Muscular Skeletal: Neurological: Psych: CC Timothy Smith MD [address] [place] [address] documented in this encounter Plan of Treatment Upcoming Encounters Date Type Specialty Care Team Description 06/26/2022 Ancillary Procedure Cardiology Seng Canchola MD [address] [place] [address] [place], [place] [phone] (Wo rk) 08/16/2022 Ancillary Procedure Cardiology Timothy Smith MD [address] [place] [id number] (Wo rk) 08/16/2022 Office Visit Cardiology Timothy Smith MD [address] [place], [place] [phone] (Wo rk) documented as of this encounter Procedures Procedure Name Priority Date/Time Associated Diagnosis Comme nts EKG 12-LEAD Routine 04/26/2021 4:35 PM Results f or this COMPLETE W/READ - CDT procedure are in CLINICS the results section. documented in this encounter Results EKG 12-lead complete w/read (Future)- to be scheduled (04/26/2021 4:35 PM CDT) Narrative This result has an attachment that is no t available. Timothy Smith MD ECG ORDERABLES documented in this encounter Visit Diagnoses Diagnosis Persistent atrial fibrillation (H) - Ria jing Atrial fibrillation Sustained VT (ventricular tachycardia) Paroxysmal ventricular tachycardia Morbid obesity (H) Morbid obesity documented in this encounter Care Teams Wharf Tender Helper Relationship Specialty Start Date End Date Slava Hernandez, PCP - General Physician Chemist Assistant 07/02/1806/02 [facility] [address] [place] [address] Timothy Smith MD Assigned Heart and 07/23/20 [address] Vascular Provider [address] [place] [address] documented as of this encounter
--- OUTSIDE RECORDS SUMMARY | 2022-06-22 08:53 | XMS_ITS | Encounter Summary ---
:1940 Author Organization [place] Address [address] [facility] [place] [address] Care Team Providers Name Role Phone Slava Hernandez PA-C Primary Care Provider Timothy Smith MD Unavailable Reason for Visit Reason Onset Date Comments Refill Request 11/10/2020 Eliquis Encounter Details Date Type Department Care Team Description 11/10/2020 Refill M [facility] Sintia Muhammad Refi ll Request (Eliquis) [facility] Heart RN Care [facility] [address] [place] [address] Social History Tobacco Use Types Packs/Day Years Used Date Never Smoker Smokeless Tobacco: Never Used Alcohol Use Standard Drinks/Week Comments No 0 (1 standard drink = 0.6 oz pure alcoho l) Sex Assigned at Date Recorded Not on file documented as of this encounter Miscellaneous Notes Telephone Encounter - Sintia Muhammad, RN - 11/10/2020 1:04 PM CST Received call from patient stating that he needs a refill on his Eliquis. He stated that he originally had been taking Eliquis 5mg twice daily, but had changed that on his own to take 2.5mg in the morning and 5 mg at night. He stated that he is agreeable to go back on the Eliquis 5mg twice daily if the doctor feels this would be best. He would like a prescription sent in to the [facility] mail order pharmacy. Spoke with Dr. Smith who stated that he would recommend patient resume the Eliquis 5mg BID. Prescription for Eliquis 5mg BID sent into [facility] mail order pharmacy per patient request. Pt called and updated and verbalized understanding and agreement with plan. 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 encounter Plan of Treatment Upcoming Encounters Date Type Specialty Care Team Description 06/26/2022 Ancillary Procedure Cardiology Seng Canchola MD [address] [place] [place] [address] (Wo rk) 08/16/2022 Ancillary Procedure Cardiology Timothy Smith MD [address] [place] [address] (Wo rk) 08/16/2022 Office Visit Cardiology Timothy Smith MD [address] [place] [address] (Wo rk) documented as of this encounter Visit Diagnoses Diagnosis Atrial flutter (H) - Primary Atrial flutter A-fib (H) Atrial fibrillation documented in this encounter Care Teams Image Processing Engineer Relationship Specialty Start Date End Date Slava Hernandez, PCP - General Physician Retail Salesperson 07/02/1806/02 PA-C [facility] [address] [place], [place] [phone] Timothy Smith MD Assigned Heart and 07/23/[address] Vascular Provider [address] [place] [id number] documented as of this encounter
--- OUTSIDE RECORDS SUMMARY | 2022-06-22 08:53 | XMS_ITS | Encounter Summary ---
:1940 Author Organization [place] Address [address] [place] [address] Care Team Providers Name Role Phone Slava Hernandez PA-C Primary Care Provider Ankur Smith MD Unavailable Reason for Referral (Routine) - Closed Specialty Diagnoses / Procedures Referred By Contact Refer red To Contact Diagnoses Sustained VT (ventricular tachycardia) [facility] [address] [place] [address] Referral ID Status Reason Start Date Expiration Date Visits Requ ested Visits Authorized [id number] Closed 02/17/2021 02/17/2022 1 1 V Testing (Routine) - Closed Specialty Diagnoses / Procedures Referred By Contact Refer red To Contact Cardiology Diagnoses Sustained VT (ventricular tachycardia) [facility] Procedures Echocardiogram Complete ZZHC TTE W/DOPPLER, COMPLETE ZZHC ECHO COMPLETE W DOPPLER W CONTRAST ZZHC ECHO COMPLETE W DOPPLER W/O CONTRAST ZZHC IV PUSH SINGLE, INITIAL SUBSTANCE ZZHC US GUIDE FOR PERICARDIOCENTESIS [id number] [employer] [address] [place] [address] ZZHC ECHO MYOCARD BX ZZC INJECTION, PERFLUTREN LIPID MICROSPHERES, PER ML ZZHC STATISTIC IV PUSH SINGLE INITIAL SUBSTANCE MT ECHO MYOCARD BX MT INJECTION, PERFLUTREN LIPID MICROSPHERES, PER ML MT TTE W/DOPPLER, COMPLETE [address] MT IV PUSH SINGLE, INITIAL S UBSTANCE MT TTE W/DOPPLER, COMPLETE MT TTE W/DOPPLER, COMPLETE HC US GUIDE FOR PERICARDIOCENTESIS HC ECHO MYOCARD BX HC IV PUSH SINGLE, INITIAL SUBSTANCE HC STATISTIC IV PUSH [place]ING[place] [address] HC ECHO COMPLETE W DOPPLER W CONTRAST HC ECHO COMPLETE W DOPPLER W/O CONTRAST [id number] Referral ID Status Reason Start Date Expiration Date Visits Requ ested Visits Authorized [id number] Closed 02/17/2021 02/17/2022 1 1 Reason for Visit Reason Onset Date Comments Implantable Devices 02/16/2021 PPM, NSVT/sustained VT Encounter Details Date Type Department Care Team Description 02/16/2021 Telephone [facility] Triston Butler RN (PPM, NSVT/sustained VT) [address] [facility] [address] [place] [address] Social History Tobacco Use Types Packs/Day Years Used Date Never Smoker Smokeless Tobacco: Never Used Alcohol Use Standard Drinks/Week Comments No 0 (1 standard drink = 0.6 oz pure alcoho l) Sex Assigned at Date Recorded Not on file COVID-19 Exposure Response Date Recorded In the last month, have you been in contact with No / Unsure 02/16/2021 9:18 AM CDT someone who was confirmed or suspected to have Coronavirus / COVID-19? documented as of this encounter Miscellaneous Notes Telephone Encounter - Sammi Hill RN - 02/17/2021 9:49 AM CDT Entered order for echo and f/u OV with Dr. Smith. Called pt, no answer, left non- urgent message to callback to device clinic for some recommendations from Dr. Smith. ADDENDUM 1:15PM. Pt called back and left VM. I called pt and spoke with him. I explained the sustained ventricular tachycardia and what that means. I gave him Dr. Smith's recommendations for echo and OV to discuss results and also discuss upgrade to ICD. I told pt what the ICD is and how it works. Pt states understanding. Transferred to scheduling to set up echo and OV. Telephone Encounter - Ankur Smith MD - 02/16/2021 2:06 PM CDT Repeat echo. Consider upgrade to dual chamber ICD for secondary prevention because of sustained VT (>30 seconds). Telephone Encounter - Sammi Hill RN - 02/16/2021 9:56 AM CDT Images from the original note were not included. Pt in device clinic today for annual threshold. He has dual chamber PPM, programmed VVIR for chronicAF, and he takes Eliquis. His underlying rhythm is AF with HR 74-115 bpm, and he V paces 39%. There were 21 ventricular episodes since last remote in November. 7 EGMs available for review. 4 of the EGMs are from 12/09/2020 between 6:50pm and 7:15pm, these 4 EGMs show regular VS in the 170-180's and a different near-field morphology, suspicious for NSVT/VT. Pt says he remembers feeling some lightheadedness maybe around that date, but he can't be sure of the exact date. Durations of these 4 episodes are listed as 21 seconds - 1 minute 13 seconds, though episode duration is usually over-estimated by about 10 seconds on this device. Only 1 of the EGMs shows the entire episode, and that episode was 14 seconds, and this was the shortest episode. Last EF from 2019 echo was 39-44%. Pt takes metoprolol succinate 25mg daily, this dose was reduced by Dr. Smith in 07/2020 due to fatigue. Pt has a hi story of CAD and CABG. The 3 other available EGMs show irregular rates and no change in morphology for short bursts of RVR. EGM from one of the possible VT episodes: documented in this encounter Plan of Treatment Upcoming Encounters Date Type Specialty Care Team Description 06/26/2022 Ancillary Procedure Cardiology Seng Canchola MD [address] [place] [address] [place] [id number] (Wo rk) 08/16/2022 Ancillary Procedure Cardiology Ankur Smith MD [address] [place] [address] (Wo rk) 08/16/2022 Office Visit Cardiology Ankur Smith MD [address] [place] [id number] (Wo rk) Scheduled Referrals Name Type Priority Associated Diagnoses Order S chedule Follow-Up with Referral Routine Sustained VT Expected: Reciprocating Drill Operator (ventricular 03/20/20 tachycardia) (H) (Approximat e), Expires: 02/17/2022 documented as of this encounter Results ECHO COMPLETE WITH CONTRAST (03/21/2021 1:18 PM CDT) Anatomical Region Laterality Modality Echocardiography Specimen (Source) Anatomical Collection Method Collection Time Re ceived Time Location / / Volume Laterality 03/21/2021 12:48 PM CDT Narrative 03/21/2021 2:22 PM CDT [id number]^KEELEY^ANKUR [facility] [address] [facility] [address] [place] [address] Name: RADHA VILLA : 1940 Study Date: 03/21/2021 12:48 PM Age: 80 yrs Gender: Male Patient Location: [facility] Reason For Study: Sustained VT (ventricu lar tachycardia) (H) Ordering Physician: ANKUR SMTIH Referring Physician: ANKUR SMITH Performed By: MCKAY Saenz BSA: 2.5 m2 Height: 71 in Weight: 285 lb HR: 73 BP: 100/68 mmHg Procedure Complete Echo Adult. Vijaya ([facility] #[id number]) given intravenously. Interpretation Summary The visual ejection [...] note might be different from the original. [id number]^KEELEY^ANKUR [facility] [address] [facility] [address] [place] [address] Name: RADHA VILLA : 1940 Study Date: 03/21/2021 12:48 PM Age: 80 yrs Gender: Male Patient Location: [facility] Reason For Study: Sustained VT (ventricu lar tachycardia) (H) Ordering Physician: ANKUR SMITH Referring Physician: ANKUR SMITH Performed By: MCKAY Saenz BSA: 2.5 m2 Height: 71 in Weight: 285 lb HR: 73 BP: 100/68 mmHg Procedure Complete Echo Adult. Optison ([facility] #[id number]) given intravenously. Interpretation Summary The visual ejection [...] 11.1 Medial E/e': 17.6 Report approved by: oPp Byrnes 02:22 PM Ankur Smith MD CV ECHO ORDERABLES documented in this encounter Visit Diagnoses Diagnosis Sustained VT (ventricular tachycardia) - Primary Paroxysmal ventricular tachycardia Sustained VT (ventricular tachycardia) - Primary Paroxysmal ventricular tachycardia documented in this encounter Care Teams Fire Safety Manager Relationship Specialty Start Date End Date Slava Hernandez, PCP - General Physician Transferrer 07/02/1806/02 PA-C [facility] [address] [place], [place] [id number] Ankur Smith MD Assigned Heart and 07/23/20 [address] [facility] Vascular Provider [address] [place] [address] documented as of this encounter
--- OUTSIDE RECORDS SUMMARY | 2022-06-22 08:53 | XMS_ITS | Encounter Summary ---
:1940 Author Organization [place] Address [address] [place] [address] Care Team Providers Name Role Phone Slava Hernandez PA-C Primary Care Provider Timothy Smith MD Unavailable Reason for Referral CV Testing (Routine) - Closed Specialty Diagnoses / Procedures Referred By Contact Refer red To Contact Diagnoses Cardiac pacemaker in situ SSS (sick sinus syndrome) (H) Steven Canchola, Procedures Cardiac Device Check - Remote MD [address] [place] [address] Referral ID Status Reason Start Date Expiration Date Visits Requ ested Visits Authorized [id number] Closed 02/16/2021 02/16/2022 1 1 Reason for Visit CV Testing (Routine) - Closed Specialty Diagnoses / Procedures Referred By Contact Refer red To Contact Diagnoses Cardiac pacemaker in situ Chris De Leon MD Procedures Cardiac Device Check - In Clinic [address] [place] [address] Referral ID Status Reason Start Date Expiration Date Visits Requ ested Visits Authorized [id number] Closed 11/16/2020 11/16/2021 1 1 Encounter Details Date Type Department Care Team Description 02/16/2021 Ancillary Procedure [facility] Chris De Leon SSS (sick sinus syndrome) (H) (Primary Dx); Heart Clinic Cardiac pacemaker in situ [place] [address] [place] [address] [place] [phone] [address] (Work) [phone] Social History Tobacco Use Types Packs/Day Years [...] [address] [place] [id number] (Wo rk) 08/16/2022 Ancillary Procedure Cardiology Timothy Smith MD [address] [place] [id number] (Wo rk) 08/16/2022 Office Visit Cardiology Timothy Smith MD [address] [place] [id number] (Wo rk) Scheduled Orders Name Type Priority Associated Order Schedule Diagnoses Cardiac Device Implantable Cardiac Routine Cardiac pacemaker 4 Occurrences Check - Remote Device in situ starting 02/16/2021 SSS (sick sinus until 2021, 1 syndrome) (H) completed documented as of this encounter Procedures Procedure Name Priority Date/Time Associated Comments Diagnosis PM DEVICE PROGRAMMING Routine 02/16/2021 9:51 AM Cardiac pacem vane Results for this EVAL, DUAL LEAD PACER CDT in situ proced ure are in the results section. documented in this encounter Results INTERROGATION DEVICE EVAL REMOTE PACER UP TO 90 DAYS (05/18/2021 3:56 PM CDT) Component Value Ref Test Analysis Performed Pathologis t Range Method Time At Signature Date Time MEDTRONIC Interrogation Session Implantable [place] [employer] MEDTRONIC Pulse Generator Container Coordinator Implantable L121 ESSENTIO EL MEDTRONIC Pulse Generator Model Implantable [id number] MEDTRONIC Pulse Generator Serial Number Type Remote MEDTRONIC Interrogation Session Clinic Name [facility] Implantable Pacemaker MEDTRONIC Pulse Generator Type Implantable [id number] MEDTRONIC Pulse Generator Implant Date Implantable Lead [facility] RAUL Container Coordinator Implantable Lead 8TC Tendril MEDTRONI C Model STS Implantable Lead [id number] MEDTRONIC Serial Number Implantable Lead [id number] MEDTRONIC Implant Date Implantable Lead Bipolar Lead MEDTRONIC Polarity Type Implantable Lead UNKNOWN MEDTRONIC Location Detail 1 Implantable Lead Right Atrium MEDTRONIC Location Implantable Lead [facility] MED[employer] RAUL Container Coordinator Implantable Lead 8TC Tendril MEDTRONI C Model STS Implantable Lead [id number] MEDTRONIC Serial Number Implantable Lead [id number] MEDTRONIC [...] 100 % MEDTRONIC Remaining Percentage Brandon Statistic [id number] MEDTRONIC Date Time Start Brandon Statistic MEDTRONIC Date Time End Brandon Statistic 0 [...] [place] MEDTRONIC Statistic Vendor Type Category Episode [id number] MEDTRONIC Statistic Recent Date Time Start Episode [id number] MEDTRONIC Statistic Recent Date Time End Episode [id number] MEDTRONIC Statistic Recent Date Time Start Episode [id number] MEDTRONIC Statistic Recent Date Time End Episode [id number] MEDTRONIC Statistic Recent Date Time Start Episode [id number] MEDTRONIC Statistic Recent Date Time End Episode [id number] MEDTRONIC Statistic Recent Date Time Start Episode [id number] MEDTRONIC Statistic Recent Date Time End Episode APM-99 MEDTRONIC Identifier Episode Type Periodic EGM MEDTRONIC Category Episode Date [id number] MEDTRONIC Time Episode [id number] MEDTRONIC Identifier Episode Type Other MEDTRONIC Category Episode Date [id number] MEDTRONIC Time Episode V-1629 MEDTRONIC Identifier Episode Type [place] MEDTRONIC Category Episode Date [id number] MEDTRONIC Time Episode Duration 14 s MEDTRONIC Episode V-1628 MEDTRONIC Identifier Episode Type [place] MEDTRONIC Category Episode Date [id number] MEDTRONIC Time Episode Duration 16 s MEDTRONIC Anatomical Region Laterality Modality Other Specimen (Source) Anatomical Collection Method Collection Time Re ceived Time Location / / Volume Laterality 05/18/2021 12:41 AM CDT Narrative 05/24/2021 4:14 PM CDT [employer] Essentio (S) Remote PPM Device Check VISUAL DESIGNER: 30% Mode: VVIR 60-130 Presenting Rhythm: VISUAL DESIGNER Heart Rate: Adequate rates per histogram Sensing: [...] Canchola MD [facility]EN PM DEVICE PROGRAMMING EVAL, DUAL LEAD PACER (02/16/2021 9:51 AM CDT) Component Value Ref Test Analysis Performed Pathologis t Range Method Time At Signature Date Time [id number] MEDTRONIC Interrogation Session Implantable [employer] [employer]IC Pulse Generator Container Coordinator Implantable L121 ESSENTIO EL [employer]TRONIC Pulse Generator Model Implantable [id number] MEDTRONIC Pulse Generator Serial Number Type In Clinic MEDTRONIC Interrogation Session Clinic Name [facility] MEDTRONIC Implantable Pacemaker MEDTRONIC Pulse Generator Type Implantable [id number] MEDTRONIC Pulse Generator Implant Date Implantable Lead [facility] MED[employer] RAUL Container Coordinator Implantable Lead 2088TC Tendril MEDTRONI C Model STS Implantable Lead [id number] MEDTRONIC Serial Number Implantable Lead [id number] MEDTRONIC Implant Date Implantable Lead Bipolar Lead MEDTRONIC Polarity Type Implantable Lead UNKNOWN MEDTRONIC Location Detail 1 Implantable Lead Right Atrium MEDTRONIC Location Implantable Lead [facility] [employer] RAUL Container Coordinator Implantable Lead 2088TC Tendril MEDTRONI C Model STS Implantable Lead [id number] MEDTRONIC Serial Number Implantable Lead [id number] MEDTRONIC [...] NSVT MEDTRONIC Statistic Vendor Type Category Episode [id number] MEDTRONIC Statistic Total Date Time End Episode 80 MEDTRONIC Statistic Recent Count Episode [place] MEDTRONIC Statistic Type Category Episode NSVT MEDTRONIC Statistic Vendor Type Category Episode SunOct 15 MEDTRONIC Statistic Recent 03:43:58 PULLMAN CLERK 2019 Date Time Start Episode [id number] MEDTRONIC Statistic Recent Date Time End Anatomical Region Laterality Modality Other Specimen (Source) Anatomical Location Collection Method / Collectio n Time Received Time / Laterality Volume 02/16/2021 Narrative 02/21/2021 9:24 AM CDT [employer] Essentio (D) Pacemaker Device Check Patient seen in clinic for device evalua tion and iterative programming. AP: NA ?% ?? VISUAL DESIGNER: 39 % ?? Mode: VVIR 60-130 ?? [...] documented in this encounter Visit Diagnoses Diagnosis SSS (sick sinus syndrome) (H) - Primary Sinoatrial node dysfunction Cardiac pacemaker in situ Cardiac pacemaker in situ SSS (sick sinus syndrome) (H) Sinoatrial node dysfunction documented in this encounter Care Teams Scrap Hooker Relationship Specialty Start Date End Date Slava Hernandez, PCP - General Physician Tie Knitter Helper 07/02/1806/02 PA-C [facility] [address] [place] [address] Timothy Smith MD Assigned Heart and 07/23/[address] [facility] [place] [place] S Vascular Provider [address] [place] [address] documented as of this encounter
--- OUTSIDE RECORDS SUMMARY | 2022-06-22 08:53 | XMS_ITS | Encounter Summary ---
:1940 Author Organization [place] Address [address] [place] [address] Care Team Providers Name Role Phone Slava Hernandez PA-C Primary Care Provider Timothy Smith MD Unavailable Reason for Referral (Routine) - Closed Specialty Diagnoses / Procedures Referred By Contact Refer red To Contact Diagnoses Sustained VT (ventricular tachycardia) Timothy Smith MD [address] [place] [address] Referral ID Status Reason Start Date Expiration Date Visits Requ ested Visits Authorized [id number] Closed 03/23/2021 03/23/2022 1 1 V Testing (Routine) - Closed Specialty Diagnoses / Procedures Referred By Contact Refer red To Contact Cardiology Diagnoses Sustained VT (ventricular tachycardia) Timothy Smith MD Cv Cardiac Svc Rscc Procedures Holter Monitor 24 hour Adult Pediatric ZZC AMB BP MONITORING W/SW >=24 HR, RECORD/SCAN/INTRP/RPT ZZ[facility] HOLTER RECORDING 24 HRS Z[facility] HOLTER SCAN 24 HRS [place] HOLTER RECORDING 24 HRS [place] HOLTER SCAN 24 HRS [address] [address] [employer] [place] AMB BP MONITORING W/SW >= 24 HR, RECORD/SCAN/INTRP/RPT HC HOLTER RECORDING 24 HRS HC HOLTER SCAN 24 HRS, ANALYSIS WITH REPORT [place] [address] [address] [place] [address] Phone: Fax: Referral ID Status Reason Start Date Expiration Date Visits Requ ested Visits Authorized [id number] Closed 03/23/2021 03/23/2022 1 1 Reason for Visit Reason Comments FU Cardiac testing review echo, discuss upgrade - ekg done (Routine) - Closed Specialty Diagnoses / Procedures Referred By Contact Refer red To Contact Diagnoses Sustained VT (ventricular tachycardia) [facility] [address] [facility] [address] [place] [address] Referral ID Status Reason Start Date Expiration Date Visits Requ ested Visits Authorized [id number] Closed 02/17/2021 02/17/2022 1 1 Encounter Details Date Type Department Care Team Description 03/23/2021 Office Visit [facility] Timothy Smith MD Sustained VT (ventricular tachycardia) ( H); [facility] [place] [address] Persistent atrial fibrillati on (H) [address] [facility] [address] [facility] [address] [place] [address] [place] [address] Social History Tobacco Use Types Packs/Day [...] Sign Reading Time Taken Comments Blood Pressure 119/64 03/23/2021 1:28 PM CDT Pulse 60 03/23/2021 1:28 PM CDT Temperature - - Respiratory Rate - - Oxygen Saturation - - Inhaled Oxygen Concentration - - Weight 126.1 kg (278 lb) 03/23/2021 1:28 PM CDT Height 174 cm (5' 8.5) 03/23/2021 1:28 PM CDT Body Mass Index 41.65 03/23/2021 1:28 PM CDT documented in this encounter Progress Notes Timothy Smith MD - 03/23/2021 2:00 PM CDT Service Date: 03/23/2021 HISTORY OF PRESENT ILLNESS: I saw Mr. Villa for evaluation of ventricular tachycardia. He is an 80-year-old white male with a history of coronary artery disease and previous CABG. He has a Medtronic dual-chamber pacemaker implanted for sinus node dysfunction. Over the years, he has developed persistent atrial fibrillation. The pacemaker detected nonsustained VT around 01/2021. He had some dizziness, but no syncope or near syncope. The VT was up to 1 minute and heart rate was relatively slow at around 160 beats per minute. He last saw me in 07/2020. At that time, he had a relatively low blood pressure. He reported fatigue. For that reason, I have reduced the dose of metoprolol from 50 to 25 mg once a day. The patient had echocardiography on 03/21/2021. His ejection fraction was reported to be about 50%. He was found to have frequent PVCs during the echocardiography. PHYSICAL EXAMINATION: VITAL SIGNS: Blood pressure was 119/64, heart rate 60 beats per minute, body weight down to 278 pounds. HEENT: Unremarkable. LUNGS: Clear. CARDIAC: Rhythm was irregularly irregular. Heart sounds were normal, without murmur. ABDOMEN: Severe obesity. EXTREMITIES: There was no pedal edema. Today's EKG showed atrial fibrillation with right bundle branch block. He had frequent PVCs. ASSESSMENT AND RECOMMENDATIONS: Mr. Villa remains in chronic atrial fibrillation with controlled ventricular rate. He has nonsustained VT with mild dizziness. Today's EKG showed frequent PVCs and he had PVCs during the recent echocardiography. At this point, I would delay consideration of ICD upgrade.I have increased the dose of metoprolol back to 50 mg p.o. daily. He will have a 24-hour Holter in about 1 week that is to assess the frequency of PVCs. I will see him for followup visit in about 1 month. At that time, I will decide if we should continue medical therapy, PVC ablation or ICD upgrade. Timothy Smith MD cc: [facility] [place] [address] [place], [address] Timothy Smith MD MT: patito Name: RADHA VILLA MRN: [id number] Account: [id number] : 1940 Service Date: 03/23/2021 Document: [id number] Mary Post CMA - 03/23/2021 1:45 PM CDT A decision aid for implantable cardioverter-defibrillatiors (ICD) given to patient at office visit to review before seeing provider. Timothy Smith MD - 03/23/2021 1:45 PM CDT HPI and Plan: See dictation Orders Placed This Encounter Procedures ??? Follow-Up with Inventory Specialist ??? EKG 12-lead complete w/read (Future)- to be scheduled ??? Holter Monitor 24 hour Adult Pediatric Orders Placed This Encounter Medications ??? metoprolol succinate ER (TOPROL-XL) 50 MG 24 hr tablet Sig: Take 1 tablet (50 mg) by mouth daily Dispense: 90 tablet Refill: 3 Medications Discontinued During This Encounter Medication Reason ??? metoprolol succinate ER (TOPROL-XL) 50 MG 24 hr tablet Encounter Diagnoses Name Primary? Sustained VT (ventricular tachycardia) (H) ??? Persistent atrial fibrillation (H) CURRENT MEDICATIONS: Current Outpatient Medications Medication Sig Dispense Refill ??? ACYCLOVIR 400 MG OR TABS 1 TABLET 3 TIMES DAILY-as need for Cold sores 30 6 ??? apixaban ANTICOAGULANT (ELIQUIS ANTICOAGULANT) 5 MG tablet Take 1 tablet (5 mg) by mouth 2 timesdaily 180 tablet 2 ??? celecoxib (CELEBREX) 200 MG capsule Take [...] on phone: None Gets together: None Attends judaism service: None Active member of club or [...] Positive for diabetes Physical Exam: Vitals: BP 119/64 Pulse 60 Ht 1.74 m (5' 8.5) Wt 126.1 kg (278 lb) BMI 41.65 kg/m?? Constitutional: cooperative, alert and oriented, well [...] Oriented x 3 CC Timothy Smith MD [address] [place] [address] documented in this encounter Plan of Treatment Upcoming Encounters Date Type Specialty Care Team Description 06/26/2022 Ancillary Procedure Cardiology Seng Canchola MD [address] [place] [phone] (Wo rk) 08/16/2022 Ancillary Procedure Cardiology Timothy Smith MD [address] [place] [id number] (Wo rk) 08/16/2022 Office Visit Cardiology Timothy Smith MD [address] [place] [id number] (Wo rk) Scheduled Referrals Name Type Priority Associated Diagnoses Order S chedule Follow-Up with Referral Routine Sustained VT Expected: Inventory Specialist (ventricular 04/22/20 21 tachycardia) (H) (Approximat e), Expires: 03/23/2022 documented as of this encounter Procedures Procedure Name Priority Date/Time Associated Diagnosis Comme nts EKG 12-LEAD Routine 03/23/2021 2:02 PM Persistent atrial Resu lts for this COMPLETE W/READ - CDT fibrillation (H) proced ure are in CLINICS the results section. documented in this encounter Results EKG 12-lead complete w/read (Future)- to be scheduled (04/26/2021 4:35 PM CDT) Narrative This result has an attachment that is no t available. Timothy Smith MD ECG ORDERABLES HOLTER MONITOR 24 HOUR APPLICATION SCAN ANALYSIS AND PROVIDER INTERPRETATION (03/30/2021 2:21 PM CDT) Anatomical Region Laterality Modality Other Specimen (Source) Anatomical Collection Method Collection Time Re ceived Time Location / / Volume Laterality 03/30/2021 2:19 PM CDT Timothy Smith MD CV CARDIAC SERVICES ORDERABL ES EKG 12-lead complete w/read (Future)- to be scheduled (03/23/2021 2:02 PM CDT) Narrative This result has an attachment that is no t available. Timothy Smith MD ECG ORDERABLES documented in this encounter Visit Diagnoses Diagnosis Sustained VT (ventricular tachycardia) Paroxysmal ventricular tachycardia Persistent atrial fibrillation (H) Atrial fibrillation documented in this encounter Care Teams Application Integrator Relationship Specialty Start Date End Date Slava Hernandez, PCP - General Physician Solar Designer/Installer 07/02/1806/02 PA-C [facility] [address] [place] [address] Timothy Smith MD Assigned Heart and 07/23/20 [address] Vascular Provider [address] [place] [address] documented as of this encounter
--- OUTSIDE RECORDS SUMMARY | 2022-06-22 08:53 | XMS_ITS | Encounter Summary ---
:1940 Author Organization [place] Address [address] [place] [address] Care Team Providers Name Role Phone Slava Hernandez PA-C Primary Care Provider Timothy Smith MD Unavailable Encounter Details Date Type Department Care Team Description 02/16/2021 Travel Social History Tobacco Use Types Packs/Day [...] [address] [place] [phone] (Wo rk) 08/16/2022 Ancillary Procedure Cardiology Timothy Smith MD [address] [place] [phone] (Wo rk) 08/16/2022 Office Visit Cardiology Timothy Smith MD [address] [place] [phone] (Wo rk) documented as of this encounter Visit Diagnoses Not on filedocumented in this encounter Care Teams Element Winding Machine Tender Relationship Specialty Start Date End Date Slava Hernandez, PCP - General Physician Inside Sales Account Executive 07/02/1806/02 MAR[facility]EL [facility] [address] [place] [address] Timothy Smith MD Assigned Heart and 07/23/20 [address] [facility] Vascular Provider [address] [place] [address] documented as of this encounter
--- OUTSIDE RECORDS SUMMARY | 2022-06-22 08:53 | XMS_ITS | Encounter Summary ---
:1940 Author Organization [place] Address [address] [place] [address] Care Team Providers Name Role Phone Slava Hernandez PA-C Primary Care Provider Timothy Smith MD Unavailable Encounter Details Date Type Department Care Team Description 04/26/2021 Orders Only [facility] Timothy Smith MD Encounter for [facility] [address] [facility] screening for other [address] [facility] [address] viral diseases [facility] [address] [place] [address] [place] [phone] Social History Tobacco Use Types Packs/Day Years [...] documented as of this encounter Miscellaneous Notes Addendum Note - Severiano Acevedo - 04/26/2021 4:10 PM CDT Addended by: SEVERIANO ACEVEDO on: 06/23/2021 02:53 PM Modules accepted: Orders documented in this encounter Plan of Treatment Upcoming Encounters Date Type Specialty Care Team Description 06/26/2022 Ancillary Procedure Cardiology Seng Canchola MD [address] [place] [phone] (Wo rk) 08/16/2022 Ancillary Procedure Cardiology Timothy Smith MD [address] [place], [place] [address] (Wo rk) 08/16/2022 Office Visit Cardiology Timothy Smith MD [address] [place] [phone] (Wo rk) documented as of this encounter Results Asymptomatic COVID-19 Virus (Coronavirus) [...] using the Aptima SARS-CoV-2 Assay on the [employer]War Instrument System. Additional in formation about this [...] COVID-19. This test was validated by the [facility]. This lab oratory is certified under the Clinical Laboratory Improvement Amen dments of 1987 (CLIA-88) as qualified to perform high complexity lab oratory testing. Timothy Smith MD LAB - MICRO GENERAL ORDERABL ES Performing Organization Address City/State/ZIP Code Phon e Number [facility] [place] [address] Diag. Lab [address] [facility], [address] [facility] Infectious [place], [place] [phone] Diseases Diagnostic [phone], [facility] Lab (IDDL) [address] [facility], [address] documented in this encounter Visit Diagnoses Diagnosis Encounter for screening for other viral diseases documented in this encounter Care Teams Cloth Printer Relationship Specialty Start Date End Date Slava Hernandez, PCP - General Physician Briquette Maker 07/02/1806/02 PA-C [facility] [address] [place] [address] Timothy Smith MD Assigned Heart and 07/23/20 [address] Vascular Provider [address] [place] [address] documented as of this encounter
--- OUTSIDE RECORDS SUMMARY | 2022-06-22 08:53 | XMS_ITS | Encounter Summary ---
:1940 Author Organization [place] Address [address] [place] [address] Care Team Providers Name Role Phone Slava Hernandez PA-C Primary Care Provider Timothy Smith MD Unavailable Encounter Details Date Type Department Care Team Description 03/21/2021 Travel Social History Tobacco Use Types Packs/Day [...] [address] [place] [id number] (Wo rk) 08/16/2022 Ancillary Procedure Cardiology Timothy Smith MD [address] [place] [phone] (Wo rk) 08/16/2022 Office Visit Cardiology Timothy Smith MD [address] [place] [phone] (Wo rk) documented as of this encounter Visit Diagnoses Not on filedocumented in this encounter Care Teams Supervisor Bleach Plant Relationship Specialty Start Date End Date Slava Hernandez, PCP - General Physician Wrapper Stemmer Hand 07/02/1806/02 MAR[facility]EL [facility] [address] [place] [address] Timothy Smith MD Assigned Heart and 07/23/20 [address] [facility] Vascular Provider [address] [place] [address] documented as of this encounter
--- OUTSIDE RECORDS SUMMARY | 2022-06-22 08:53 | XMS_ITS | Encounter Summary ---
:1940 Author Organization [place] Address [address] [place] [address] Care Team Providers Name Role Phone Slava Hernandez PA-C Primary Care Provider Timothy Smith MD Unavailable Reason for Visit Reason Onset Date Comments Refill Request 08/30/2020 mail order refill se 08-25-2020-[facility] claims they dont have it----re sent Encounter Details Date Type Department Care Team Description 08/30/2020 Refill [facility] Zarina Smith MD Refill Request (mail [facility] [place] [address] order refill sent [address] [facility] [address] 08-25-2020-[facility] claims [address] [place] [address] they dont have it----re [place] [phone] sent) [phone] Social History Tobacco Use Types Packs/Day Years Used Date Never Smoker Smokeless Tobacco: Never Used Alcohol Use Standard Drinks/Week Comments No 0 (1 standard drink = 0.6 oz pure alcoho l) Sex Assigned at Date Recorded Not on file documented as of this encounter Plan of Treatment Upcoming Encounters Date Type Specialty Care Team Description 06/26/2022 Ancillary Procedure Cardiology Seng Canchola MD [address] [place] [phone] (Wo rk) 08/16/2022 Ancillary Procedure Cardiology Timothy Smith MD [address] [place] [phone] (Wo rk) 08/16/2022 Office Visit Cardiology Timothy Smith MD [address] [place] [phone] (Wo rk) documented as of this encounter Visit Diagnoses Diagnosis Paroxysmal atrial fibrillation (H) Atrial fibrillation documented in this encounter Care Teams Mechanical Reliability Engineer Relationship Specialty Start Date End Date Slava Hernandez, PCP - General Physician Faculty Research Assistant 07/02/1806/02 PA-C [facility] [address] [place] [address] Timothy Smith MD Assigned Heart and 07/23/20 [address] Vascular Provider [address] [place] [address] documented as of this encounter
--- OUTSIDE RECORDS SUMMARY | 2022-06-22 08:53 | XMS_ITS | Encounter Summary ---
:1940 Author Organization [facility] Address [address] [place] [address] Care Team Providers Name Role Phone Slava Hernandez PA-C Primary Care Provider Timothy Smith MD Unavailable Encounter Details Date Type Department Care Team Description 11/08/2020 Telephone [facility] Sergo Tamayo RN [address] [place] [phone] Social History Tobacco Use Types Packs/Day Years Used Date Never Smoker Smokeless Tobacco: Never Used Alcohol Use Standard Drinks/Week Comments No 0 (1 standard drink = 0.6 oz pure alcoho l) Sex Assigned at Date Recorded Not on file documented as of this encounter Miscellaneous Notes Telephone Encounter - Temitope Tamayo RN - 11/11/2020 7:23 AM CST Message left with patient to discuss further. Awaiting return call. SIENNA Okeefe ICAL RESEARCH WORKER Telephone Encounter - Temitope Tamayo RN - 11/08/2020 11:17 AM CST ----- Message from Catherine Aranda LPN sent at 11/08/2020 10:32 AM CHEMICAL RESEARCH WORKER ----- Pt left a VM message on my phone that eliquis is too expensive, over 500$, he Rosanna will not be taking that, what else can I try-will forward to AF team His pn# [phone] [place] cigar patcher ICAL RESEARCH WORKER documented in this encounter Plan of Treatment Upcoming Encounters Date Type Specialty Care Team Description 06/26/2022 Ancillary Procedure Cardiology Seng Canchola MD [address] [place] [id number] (Wo rk) 08/16/2022 Ancillary Procedure Cardiology Timothy Smith MD [address] [place] [id number] (Wo rk) 08/16/2022 Office Visit Cardiology Timothy Smith MD [address] [place] [id number] (Wo rk) documented as of this encounter Visit Diagnoses Not on filedocumented in this encounter Care Teams Jewel Stripper Relationship Specialty Start Date End Date Slava Hernandez, PCP - General Physician Beam Builder 07/02/1806/02 PA-C [facility] [address] [place], [place] [id number] Timothy Smith MD Assigned Heart and 07/23/[address] Vascular Provider [address] [place] [id number] documented as of this encounter
--- OUTSIDE RECORDS SUMMARY | 2022-06-22 08:54 | XMS_ITS | Encounter Summary ---
:1940 Author Organization [facility] Address [address] [place] [address] Care Team Providers Name Role Phone Slava Hernandez PA-C Primary Care Provider Encounter Details Date Type Department Care Team Description 10/15/2019 Telephone [facility] Zina Myers RN [address] [place] [address] Social History Tobacco Use Types Packs/Day Years Used Date Never Smoker Smokeless Tobacco: Never Used Alcohol Use Standard Drinks/Week Comments No 0 (1 standard drink = 0.6 oz pure alcoho l) Sex Assigned at Date Recorded Not on file documented as of this encounter Miscellaneous Notes Telephone Encounter - Timothy Smith MD - 10/15/2019 1:22 PM CST Thank you for the update. P CLERK Telephone Encounter - Kitty Myers RN - 10/15/2019 9:56 AM CST Patient was seen today for his annual threshold. He noted that he was no longer taking his eliquis due to cost. He stated that he changed insurance at the beginning of this year. Patient states that hehas previously had a reaction to warfarin. I provided him with the names of xarelto and pradaxa and asked that he call insurance company to see what these would cost. I asked that he call us with an update after hearing back from them. He also had 1 EGM logged showing NSVT. EGM shows 8 beats of NSVT in the 200s. Echo in 11/2018 shows EF 39-44%. He is on metoprolol. Will route to Dr. Smith per protocol. P CLERK documented in this encounter Plan of Treatment Upcoming Encounters Date Type Specialty Care Team Description 06/26/2022 Ancillary Procedure Cardiology Seng Canchola MD [address] [place] [phone] (Wo rk) 08/16/2022 Ancillary Procedure Cardiology Timothy Smith MD [address] [place] [id number] (Wo rk) 08/16/2022 Office Visit Cardiology Timothy Smith MD [address] [place] [id number] (Wo rk) documented as of this encounter Visit Diagnoses Not on filedocumented in this encounter Care Teams Business Management Consultant Relationship Specialty Start Date End Date Slava Hernandez PA-C PCP - General Physician Vault Worker 07/02/18 06/29/21 [facility] [address] [place] [address] documented as of this encounter
--- OUTSIDE RECORDS SUMMARY | 2022-06-22 08:54 | XMS_ITS | Encounter Summary ---
:1940 Author Organization [facility] Address [address] [place] [address] Care Team Providers Name Role Phone Slava Hernandez PA-C Primary Care Provider Encounter Details Date Type Department Care Team Description 01/20/2020 Travel Social History Tobacco Use Types Packs/Day Years Used Date Never Smoker Smokeless Tobacco: Never Used Alcohol Use Standard Drinks/Week Comments No 0 (1 standard drink = 0.6 oz pure alcoho l) Sex Assigned at Date Recorded Not on file COVID-19 Exposure Response Date Recorded In the last month, have you been in contact with No / Unsure 01/20/2020 9:01 AM CDT someone who was confirmed or suspected to have Coronavirus / COVID-19? documented as of this encounter Plan of Treatment Upcoming Encounters Date Type Specialty Care Team Description 06/26/2022 Ancillary Procedure Cardiology Seng Canchola MD [address] [place] [phone] (Wo rk) 08/16/2022 Ancillary Procedure Cardiology Timothy Smith MD [address] [place] [phone] (Wo rk) 08/16/2022 Office Visit Cardiology Timothy Smith MD [address] [place] [phone] (Wo rk) documented as of this encounter Visit Diagnoses Not on filedocumented in this encounter Care Teams Vocational Instructor Relationship Specialty Start Date End Date Slava Hernandez PA-C PCP - General Physician Workers Compensation Claims Adjuster 07/02/18 06/29/21 [facility] [address] [place] [address] documented as of this encounter
--- OUTSIDE RECORDS SUMMARY | 2022-06-22 08:54 | XMS_ITS | Encounter Summary ---
:1940 Author Organization [facility] Address [address] [place] [address] Care Team Providers Name Role Phone Slava Hernandez PA-C Primary Care Provider Encounter Details Date Type Department Care Team Description 06/25/2019 Travel Social History Tobacco Use Types Packs/Day [...] [address] [place] [id number] (Wo rk) 08/16/2022 Ancillary Procedure Cardiology Timothy Smith MD [address] [place] [phone] (Wo rk) 08/16/2022 Office Visit Cardiology Timothy Smith MD [address] [place] [phone] (Wo rk) documented as of this encounter Visit Diagnoses Not on filedocumented in this encounter Care Teams Station Jailer Relationship Specialty Start Date End Date Slava Hernandez PA-C PCP - General Physician Insurance Special Agent 07/02/18 06/29/21 [facility] [id number] [place] [address] [place] [address] documented as of this encounter
--- OUTSIDE RECORDS SUMMARY | 2022-06-22 08:54 | XMS_ITS | Encounter Summary ---
:1940 Author Organization [facility] Address [address] [place] [address] Care Team Providers Name Role Phone Slava Hernandez PA-C Primary Care Provider Reason for Referral (Routine) - Closed Specialty Diagnoses / Procedures Referred By Contact Refer red To Contact Diagnoses Persistent atrial fibrillation (H) Ankur Smith MD [address] [place] [address] Referral ID Status Reason Start Date Expiration Date Visits Requ ested Visits Authorized [id number] Closed 06/25/2019 06/24/2020 1 1 (Routine) - Closed Specialty Diagnoses / Procedures Referred By Contact Refer red To Contact Diagnoses Persistent atrial fibrillation (H) Ankur Smith MD [address] [place] [address] Referral ID Status Reason Start Date Expiration Date Visits Requ ested Visits Authorized [id number] Closed 06/25/2019 06/24/2020 1 1 Reason for Visit Reason Comments Consult AF, cardiomyopathy, PPM, CA D (Routine) - Closed Specialty Diagnoses / Procedures Referred By Contact Refer red To Contact Diagnoses Persistent atrial fibrillation (H) Chronic systolic congestive heart failure (H) Elda Johnson, FLACO INTRANET SPECIALIST [address] [place] [id number] Referral ID Status Reason Start Date Expiration Date Visits Requ ested Visits Authorized [id number] Closed 01/22/2019 01/22/2020 1 1 Encounter Details Date Type Department Care Team Description 06/25/2019 Office Visit [facility], Elda Montoya, VICE PRESIDENT NETWORK INTRANET SPECIALIST [address] [place] [id number] Persistent atrial fibrillation (H); [facility] Ankur Smith MD [address] [place] [phone] Chronic systolic congestive heart failur e (H) [facility] [address] [facility] [address] [place] [address] Social History Tobacco Use Types Packs/Day Years Used Date Never Smoker Smokeless Tobacco: Never Used Alcohol Use Standard Drinks/Week Comments No 0 (1 standard drink = 0.6 oz pure alcoho l) Sex Assigned at Date Recorded Not on file documented as of this encounter Last Filed Vital Signs Vital Sign Reading Time Taken Comments Blood Pressure 120/60 06/25/2019 10:14 AM CDT Pulse 80 06/25/2019 10:14 AM CDT Temperature - - Respiratory Rate - - Oxygen Saturation - - Inhaled Oxygen Concentration - - Weight 136.1 kg (300 lb) 06/25/2019 10:14 AM CDT Height 180.3 cm (5' 11) 06/25/2019 10:14 AM CDT Body Mass Index 41.84 06/25/2019 10:14 AM CDT documented in this encounter Progress Notes Ankur Smith MD - 06/25/2019 10:32 AM CDT Service Date: 06/25/2019 CLINIC NOTE HISTORY OF PRESENT ILLNESS: I saw Mr. Villa for followup of coronary artery disease and atrial fibrillation. He is an 78-year-old white male with a history of coronary artery disease and previous CABG.The current LV ejection fraction is about 40%. The patient initially received a dual-chamber pacemaker for sinus node dysfunction on 02/04/2016. He had previous atrial flutter ablation on 02/27/2013. The patient has developed chronic atrial fibrillation without rapid ventricular rate. He currently is receiving 50% of ventricular pacing on metoprolol 50 mg once a day. He is known to have chronic renal insufficiency and type 2 diabetes. He is on torsemide 20 mg once aday without mild shortness of breath, orthopnea or PND. The patient has decided to take Eliquis 5 mg once a day only because he believed that he is 78 yearsold and would not care less about having a stroke. In addition, the co-pay seemed to be too high to him. Third, he thinks that with once daily Eliquis, he has less subcutaneous bleeding. PHYSICAL EXAMINATION: VITAL SIGNS: Blood pressure was 120/60, heart rate 80 beats per minute, body weight 300 pounds. CHEST: The pacemaker site looked well. LUNGS: Clear. CARDIAC: Rhythm was regular and heart sounds were normal without murmur. ABDOMINAL EXAMINATION: Showed severe obesity. EXTREMITIES: He had trace bilateral leg edema. ASSESSMENT AND RECOMMENDATIONS: Mr. Villa has been relatively stable for the last few months. I agree for him to take Eliquis once a day as long as he is aware of slightly increased risk of stroke withthe nontypical dosing schedule. He can continue the other medications and return for followup in 6 months. He is encouraged to lose weight. cc: HANK Handley [facility] [id number] [place] [id number] ANKUR SMITH MD MT: CAITLYN Name: RADHA VILLA MRN: [id number] Account: [id number] : 1940 Service Date: 06/25/2019 Document: [id number] Ankur Smith MD - 06/25/2019 10:15 AM CDT HPI and Plan: See dictation Orders Placed This Encounter Procedures ??? Follow-Up with Cardiac Advanced Practice Provider ??? Follow-Up with Bait Man ??? EKG 12-lead complete w/read (Future)- to be scheduled No orders of the defined types were placed in this encounter. There are no discontinued medications. Encounter Diagnoses Name Primary? Persistent atrial fibrillation (H) ??? Chronic systolic congestive heart failure (H) CURRENT MEDICATIONS: Current Outpatient Medications Medication Sig Dispense Refill ??? ACYCLOVIR 400 MG OR TABS 1 TABLET 3 TIMES DAILY-as need for Cold sores 30 6 ??? apixaban ANTICOAGULANT (ELIQUIS) 5 MG tablet Take 1 tablet (5 mg) by mouth 2 times daily (Patient taking differently: Take 5 mg by mouth daily ) 180 tablet 2 ??? celecoxib (CELEBREX) 200 MG capsule Take 200 mg by mouth 2 times daily ??? fenofibrate 160 MG tablet Take 160 mg by mouth daily. ??? GLIPIZIDE PO Take 5 mg by mouth 2 times daily (before meals) ??? metFORMIN (GLUCOPHAGE) 500 MG tablet Take 2 tablets (1,000 mg) by mouth 2 times daily (with meals) (Patient taking differently: Take 1,000 mg by mouth daily ) 60 tablet ??? metoprolol succinate ER (TOPROL-XL) 100 MG 24 hr tablet Take 0.5 tablets (50 mg) by mouth daily 90 tablet 1 ??? nitroGLYcerin (NITROSTAT) 0.[address] 1 tablet (0.4 mg) under the tongue every 5 minutes as needed for chest pain 25 tablet 3 ??? pravastatin (PRAVACHOL) 80 MG tablet Take 80 mg by mouth At Bedtime ??? tamsulosin (FLOMAX) 0.4 MG capsule Take 1 capsule (0.4 mg) by mouth daily 90 capsule 4 ??? torsemide (DEMADEX) 20 MG tablet Take 1 tablet (20 mg) by mouth daily 90 tablet 3 ??? PANTOPRAZOLE SODIUM PO Take 40 mg by mouth every morning (before breakfast). ??? terazosin (HYTRIN) 5 MG capsule Take 1 capsule (5 mg) by mouth At Bedtime (Patient not taking: Reported on 01/01/2019) 90 capsule 3 ALLERGIES Allergies Allergen Reactions ??? No Known [...] ??? Financial resource strain: None ??? Food insecurity: Worry: None Inability: None ??? Transportation needs: Medical: None Non-medical: None Tobacco Use ??? Smoking status: Never Smoker ??? Smokeless tobacco: Never Used Substance and Sexual Activity ??? Alcohol use: No ??? Drug use: No ??? Sexual activity: None Lifestyle ??? Physical activity: Days per week: None Minutes per session: None ??? Stress: None Relationships ??? Social connections: Talks on phone: None Gets together: None Attends advent service: None Active member of club or organization: None Attends meetings of clubs or organizations: None Relationship status: None ??? Intimate partner violence: Fear of current or ex partner: None Emotionally abused: None Physically abused: None Forced sexual activity: None Other Topics Concern ??? Parent/sibling w/ CABG, LA or angioplasty before 65F 55M? No ??? [...] ??? None Review of Systems: Skin: Negative for Eyes: Positive for glasses ENT: Negative for Respiratory: Positive for sleep apnea;CPAP Cardiovascular: Negative Gastroenterology: Negative for Genitourinary: not assessed Musculoskeletal: Positive for back pain;neck pain Neurologic: Negative for Psychiatric: Negative for Heme/Lymph/Imm: Positive for allergies Endocrine: Positive for diabetes Physical Exam: Vitals: BP 120/60 Pulse 80 Ht 1.803 m (5' 11) Wt 136.1 kg (300 lb) BMI 41.84 kg/m?? Constitutional: cooperative, alert and oriented, well [...] Psych: Alert and Oriented x 3 CC Slava Hernandez, [facility] [address] [place] [address] documented in this encounter Plan of Treatment Upcoming Encounters Date Type Specialty Care Team Description 06/26/2022 Ancillary Procedure Cardiology Seng Canchola MD [address] [place] [phone] (Wo rk) 08/16/2022 Ancillary Procedure Cardiology Ankur Smith MD [address] [place] [id number] (Wo rk) 08/16/2022 Office Visit Cardiology Ankur Smith MD [address] [place] [address] (Wo rk) Scheduled Referrals Name Type Priority Associated Diagnoses Order S chedule Follow-Up with Cardiac Referral Routine Persistent atrial Expected: Advanced Practice Provider fibrillation ( H) 12/24/2019 (Approximate), Expires: 06/24/2020 Follow-Up with Referral Routine Persistent atrial Expected : Bait Man fibrillation (H) 06/02 (Approximate), Expires: 11/06/2020 documented as of this encounter Results EKG 12-lead complete w/read (Future)- to be scheduled (03/23/2021 2:02 PM CDT) Narrative This result has an attachment that is no t available. Ankur Smith MD ECG ORDERABLES documented in this encounter Visit Diagnoses Diagnosis Persistent atrial fibrillation (H) Atrial fibrillation Chronic systolic congestive heart failur e (H) Chronic systolic heart failure documented in this encounter Care Teams Orthotics Prosthetics Technician Relationship Specialty Start Date End Date Slava Hernandez, PA-C PCP - General Physician Ore Feeder 07/02/18 06/29/21 [facility] [address] [place] [address] documented as of this encounter
--- OUTSIDE RECORDS SUMMARY | 2022-06-22 08:54 | XMS_ITS | Encounter Summary ---
:1940 Author Organization [facility] Address [address] [place] [address] Care Team Providers Name Role Phone Slava Hernandez PA-C Primary Care Provider Encounter Details Date Type Department Care Team Description 02/03/2019 Orders Only [facility] Etl Developer jordyn systolic Clinic [place] congestive heart failure [address] [facility] [address] [place] [address] Social History Tobacco Use [...] [address] [place] [phone] (Wo rk) 08/16/2022 Office Visit Cardiology Timothy Smith MD [address] [place] [phone] (Wo rk) documented as of this encounter Procedures Procedure Name Priority Date/Time Associated Diagnosis Comme nts BASIC METABOLIC Routine 02/03/2019 11:17 AM Chronic systolic R esults for this PANEL CDT congestive heart procedure a re in failure (H) the results section. documented in this encounter Results (ABNORMAL) Basic metabolic panel (02/03/2019 11:17 AM CDT) Analysis Performed At [facility] Time Signature Sodium 140 133 - 144 02/03/2019 [facility] mmol/L 12:07 PM [facility] Potassium 4.1 3.4 - 5.3 02/03/2019 [facility] mmol/L 12:07 PM [facility] Chloride 104 94 - 109 02/03/2019 [facility] mmol/L 12:07 PM [facility] Carbon Dioxide 30 20 - 32 02/03/2019 [facility] mmol/L 12:15 PM [facility] Anion Gap 6 3 - 14 02/03/2019 [facility] mmol/L 12:15 PM [facility] Glucose 95 70 - 99 02/03/2019 [facility] mg/dL 12:15 PM [facility] Urea Nitrogen 39 (H) 7 - 30 02/03/2019 [facility] mg/dL 12:15 PM [facility] Creatinine 1.64 (H) 0.66 - 02/03/2019 [facility] 1.25 mg/dL 12:15 PM [facility] GFR Estimate 39 (L) >60 02/03/2019 [facility] mL/min/{1. 12:15 PM [facility] 73_m2} HOSPITAL Comment: Non GFR Calc Starting 09/17/2018, serum creatinine ba sed estimated GFR (eGFR) will be calculated using the Chronic Kidney Dise [employer] [facility] Epidemiology Collaboration (CKD-EPI) equation. GFR Estimate If 45 (L) >60 mL/min/{1.73_m2} 02/03/2019 12:15 PM [facility] Comment: GFR Calc Starting 09/17/2018, serum creatinine ba sed estimated GFR (eGFR) will be calculated using the Chronic Kidney Dise [employer] Epidemiology Collaboration (CKD-EPI) equation. Calcium 9.6 8.5 - 10.1 mg/dL 02/03/2019 12:15 PM [facility] Specimen Anatomical Collection Method Collection Time Receive d Time (Source) Location / / Volume Laterality Blood specimen 02/03/2019 11:17 9 (specimen) AM CDT 11:22 AM CDT Elda Johnson APRN CHILD CARE LEADER LAB - BLOOD ORDERABL ES Performing Organization Address City/State/ZIP Code Phon e Number [place] [address] [address] [place], [place] [address] [facility] [address] [phone] documented in this encounter Visit Diagnoses Diagnosis Chronic systolic congestive heart failur e (H) Chronic systolic heart failure documented in this encounter Care Teams Senior Civil Engineer Relationship Specialty Start Date End Date Slava Hernandez PA-C PCP - General Physician Sales Representative Jewelry 07/02/18 06/29/[address] [facility] [address] [place] [address] documented as of this encounter
--- OUTSIDE RECORDS SUMMARY | 2022-06-22 08:54 | XMS_ITS | Encounter Summary ---
:1940 Author Organization [facility] Address [address] [place] [address] Care Team Providers Name Role Phone Slava Hernandez PA-C Primary Care Provider Reason for Referral CV Testing (Routine) - Closed Specialty Diagnoses / Procedures Referred By Contact Refer red To Contact Diagnoses Cardiac pacemaker in situ Basil Guadalupe MD Procedures Cardiac Device Check - Remote [address] [place] [address] Referral ID Status Reason Start Date Expiration Date Visits Requ ested Visits Authorized [id number] Closed 10/15/2019 10/14/2020 1 1 NCE CLERK Reason for Visit CV Testing (Routine) - Closed Specialty Diagnoses / Procedures Referred By Contact Refer red To Contact Diagnoses Cardiac pacemaker in situ [facility] Cv Cardiac Services Procedures Cardiac Device Check - In Clinic [address] [facility] [address] [place] [address] Referral ID Status Reason Start Date Expiration Date Visits Requ ested Visits Authorized [id number] Closed 06/25/2019 06/24/2020 1 1 Encounter Details Date Type Department Care Team Description 10/15/[address] [facility] Timothy Smith MD Cardiac pacemaker in Heart Clinic [address] [place] [address] [address] [address] [place], [place] [address] [address] [place], [place] (Work) [phone] Social History Tobacco Use Types Packs/Day Years [...] [address] [place] [address] (Wo rk) 08/16/2022 Ancillary Procedure Cardiology Timothy Smith MD [address] [place] [id number] (Wo rk) 08/16/2022 Office Visit Cardiology Timothy Smith MD [address] [place] [id number] (Wo rk) documented as of this encounter Procedures Procedure Name Priority Date/Time Associated Comments Diagnosis PM DEVICE PROGRAMMING Routine 10/15/2019 9:24 AM Cardiac pacem vane Results for this EVAL, DUAL LEAD PACER BALANCE CLERK in situ proced ure are in the results section. documented in this encounter Results INTERROGATION DEVICE EVAL REMOTE PACER UP TO 90 DAYS (01/27/2020 7:40 AM CDT) Component Value Ref Test Analysis Performed Pathologis t Range Method Time At Signature Date Time [id number] [employer] Interrogation Session Implantable [employer] Pulse Generator Adjunct Spanish Instructor Implantable L121 ESSENTIO EL [employer] Pulse Generator Model Implantable [id number] [employer] Pulse Generator Serial Number Type Remote [facility] Interrogation Session Clinic Name [facility] Implantable Pacemaker [employer] Pulse Generator Type Implantable [id number] [employer] Pulse Generator Implant Date Implantable Lead [facility] [facility]UL Adjunct Spanish Instructor Implantable Lead 2088TC Tendril [employer] C Model STS Implantable Lead [id number] [employer] Serial Number Implantable Lead [id number] [employer] Implant Date Implantable Lead Bipolar Lead [employer] Polarity Type Implantable Lead UNKNOWN [employer] Location Detail 1 Implantable Lead Right Atrium [employer] Location Implantable Lead [facility] [facility] [employer] RAUL Adjunct Spanish Instructor Implantable Lead 2088TC Tendril [employer] C Model STS Implantable Lead [id number] [employer] Serial Number Implantable Lead [id number] [employer] Implant Date Implantable Lead Bipolar Lead [...] [employer] Setting Pacing Pulse Width Lead Channel 1.2 V [employer] Setting Pacing Amplitude Lead Channel Adaptive [employer] Setting Pacing Capture Mode Zone Setting VT [facility] Type Category Zone Setting VT [facility] Vendor Type Category Zone Setting 375 ms [employer] Detection Interval Lead Channel 409 ohm [employer] Impedance Value Lead Channel 517 ohm [employer] Impedance Value Lead Channel 0.8 V [employer] Pacing Threshold Amplitude Lead Channel 0.4 ms [employer] Pacing Threshold Pulse Width Battery Date [employer] Time of Measurements Battery Status Beginning of [employer] Service Battery 144 mo [employer] Remaining Longevity Battery 100 % [employer] Remaining Percentage Brandon Statistic [id number] [employer] Date Time Start Brandon Statistic [id number] [employer] Date Time End Brandon Statistic 0 % [employer] RA Percent Paced Brandon Statistic 35 % [employer] RV Percent Paced Episode 0 [facility] Statistic Recent Count Episode AT/AF [facility] Statistic Type Category Episode AF [facility] Statistic Vendor Type Category Episode 0 [facility] Statistic Recent Count Episode SVT [facility] Statistic Type Category Episode SVT [facility] Statistic Vendor Type Category Episode 14 [facility] Statistic Recent Count Episode VT [facility]IC Statistic Type Category Episode NSVT [employer] Statistic Vendor Type Category Episode 0 [facility] Statistic Recent Count Episode VT [facility]IC Statistic Type Category Episode VT [facility]IC Statistic Vendor Type Category Episode [id number] [facility] Statistic Recent Date Time Start Episode [id number] [facility] Statistic Recent Date Time End Episode [id number] [employer] Statistic Recent Date Time Start Episode [id number] [employer] Statistic Recent Date Time End Episode [id number] [employer] Statistic Recent Date Time Start Episode [id number] [facility] Statistic Recent Date Time End Episode [id number] [facility] Statistic Recent Date Time Start Episode [id number] [facility] Statistic Recent Date Time End Episode APM-94 [facility] Identifier Episode Type Periodic EGM [facility] Category Episode Date [id number] [facility] Time Episode [id number] [employer] Identifier Episode Type Other [employer]IC Category Episode Date [id number] [employer] Time Episode V-1550 [employer] Identifier Episode Type VT [facility]IC Category Episode Date [id number] [facility] Time Episode Duration 16 s [facility]IC Episode V-1549 [employer] Identifier Episode Type VT [facility] Category Episode Date [id number] [facility] Time Episode Duration 26 s [facility]IC Episode V-1548 [employer] Identifier Episode Type VT [facility] Category Episode Date [id number] [facility] Time Episode Duration 28 s MED[employer]IC Episode V-1547 [employer] Identifier Episode Type VT [facility] Category Episode Date [id number] [facility] Time Episode Duration 12 s MED[employer]IC Episode V-1546 [employer] Identifier Episode Type VT [facility]IC Category Episode Date [id number] [employer] Time Episode Duration 14 s MEDTR[employer]IC Episode V-1545 [employer] Identifier Episode Type VT [facility]TR[facility]IC Category Episode Date [id number] [facility] Time Episode Duration 21 s MEDTR[employer]IC Episode V-1544 [employer] Identifier Episode Type VT [facility]TR[facility]IC Category Episode Date [id number] [facility] Time Episode Duration 14 s MED[employer]IC Episode V-1543 [employer] Identifier Episode Type VT [facility]TR[facility]IC Category Episode Date [id number] [facility] Time Episode Duration 37 s [facility]IC Episode V-1542 [employer] Identifier Episode Type VT [facility] Category Episode Date [id number] [facility] Time Episode Duration 14 s [facility]IC Episode V-1541 [employer] Identifier Episode Type VT [facility] Category Episode Date [id number] [facility] Time Episode Duration 23 s [facility] Anatomical Region Laterality Modality Other Specimen (Source) Anatomical Collection Method Collection Time Re ceived Time Location / / Volume Laterality 01/27/2020 12:41 AM CDT Narrative 02/10/2020 3:26 PM CDT [employer] (S) Remote PPM Device Check GEOPHYSICAL PARTY CHIEF: 35%, Chronic AFib, taking Eliquis Mode: VVIR Presenting Rhythm: GEOPHYSICAL PARTY CHIEF Heart Rate: adequate heart rates per his togram Sensing: stable Pacing Threshold: stable Impedance: stable Battery Status: 12 years remaining Atrial Arrhythmia: n/a Ventricular Arrhythmia: 14 ventricular h igh rates. 2 EGMs available showing irregular VS events suggestive o f RVR, episodes lasting 12-37 seconds, rates 140 - 175bpm. Care Plan: F/u PPM Latitude q 3 months. Gave patient results over the phone. OsmaniCVT I have reviewed and interpreted the agustín ce interrogation, settings, programming and nurse's summary. The dev ice is functioning within normal device parameters. I agree with the curr ent findings, assessment and plan. Basil Guadalupe MD CV CARDIAC SERVICES ORDERABL ES PM DEVICE PROGRAMMING EVAL, DUAL LEAD PACER (10/15/2019 9:24 AM BALANCE CLERK) Component Value Ref Test Analysis Performed Pathologis t Range Method Time At Signature Date Time [id number] [employer] Interrogation Session Implantable [employer] Pulse Generator Adjunct Spanish Instructor Implantable L121 ESSENTIO EL [employer] Pulse Generator Model Implantable [id number] [facility] Pulse Generator Serial Number Type In Clinic [facility] Interrogation Session Clinic Name [facility] Implantable Pacemaker [employer] Pulse Generator Type Implantable [id number] [employer] Pulse Generator Implant Date Implantable Lead [facility] [facility] RAUL Adjunct Spanish Instructor Implantable Lead 2088TC Tendril MEDTRONI C Model STS Implantable Lead [id number] [employer] Serial Number Implantable Lead [id number] [employer] Implant Date Implantable Lead Bipolar Lead [employer] Polarity Type Implantable Lead UNKNOWN [employer] Location Detail 1 Implantable Lead Right Atrium [facility] Location Implantable Lead [facility] [facility] RAUL Adjunct Spanish Instructor Implantable Lead 2088TC Tendril [employer] C Model STS Implantable Lead [id number] [employer] Serial Number Implantable Lead [id number] [employer] Implant Date Implantable Lead Bipolar Lead [...] ms [employer] PAV Delay Low Brandon Setting 200.0 ms [employer]IC PAV Delay High Brandon Setting AT Unknown MEDTRONIC Mode Switch Mode Lead Channel Off [employer]IC Setting Sensing Polarity Lead Channel Unknown MEDTR[employer]IC Setting Sensing Cathode Location Lead Channel Unknown MEDTRONIC Setting Sensing Cathode Terminal Lead Channel Unknown [employer]IC Setting Sensing Anode Location Lead Channel Unknown MEDTRONIC Setting Sensing Anode Terminal Lead Channel 0.15 mV MEDTRONIC Setting Sensing Sensitivity Lead Channel Adaptive MED[employer]IC Setting Sensing Adaptation Mode Lead Channel Bipolar [employer]TRONIC Setting Sensing Polarity Lead Channel Unknown MEDTRONIC Setting Sensing Cathode Location Lead Channel Unknown MEDTRONIC Setting Sensing Cathode Terminal Lead Channel Unknown MEDTRONIC Setting Sensing Anode Location Lead Channel Unknown MEDTRONIC Setting Sensing Anode Terminal Lead Channel 1.5 mV MEDTRONIC Setting Sensing Sensitivity Lead Channel Adaptive MEDTRONIC Setting Sensing Adaptation Mode Lead Channel Unknown MEDTRONIC Setting Pacing Polarity Lead Channel Unknown MEDTRONIC Setting Pacing Anode Location Lead Channel Unknown MEDTRONIC Setting Pacing Anode Terminal Lead Channel Unknown MEDTRONIC Setting Sensing Cathode Location Lead Channel Unknown MEDTRONIC Setting Sensing Cathode Terminal Lead Channel Fixed Pacing MEDTRONIC Setting Pacing Capture Mode Lead Channel Bipolar MEDTRONIC Setting Pacing Polarity Lead Channel Unknown MEDTRONIC Setting Pacing Anode Location Lead Channel Unknown MEDTRONIC Setting Pacing Anode Terminal Lead Channel Unknown MEDTRONIC Setting Sensing Cathode Location Lead Channel Unknown MEDTRONIC Setting Sensing Cathode Terminal Lead Channel 0.4 ms [employer]TRONIC Setting Pacing Pulse Width Lead Channel 1.2 V [facility]IC Setting Pacing Amplitude Lead Channel Adaptive [facility]IC Setting Pacing Capture Mode Zone Setting VT MEDTRONIC Type Category Zone Setting VT [facility]IC Vendor Type Category Zone Setting 375.0 ms [employer] Detection Interval Lead Channel 403.0 ohm [employer] Impedance Value Lead Channel 0.5 mV [employer] Sensing Intrinsic Amplitude Lead Channel 1.6000 V [employer]IC Pacing Threshold Amplitude Lead Channel 0.4 ms [employer]IC Pacing Threshold Pulse Width Lead Channel 521.0 ohm [employer]IC Impedance Value Lead Channel 13.1 mV [employer]IC Sensing Intrinsic Amplitude Lead Channel 0.7000 V [employer]IC Pacing Threshold Amplitude Lead Channel 0.4 ms [employer]IC Pacing Threshold Pulse Width Battery Status Beginning of [employer] Service Episode 685 [employer]IC Statistic Total Count Episode VT [facility]IC Statistic Type Category Episode NSVT [facility] Statistic Vendor Type Category Episode [id number] [employer] Statistic Total Date Time End Episode 97 [employer] Statistic Recent Count Episode VT [facility]IC Statistic Type Category Episode NSVT [facility] Statistic Vendor Type Category Episode [id number] [employer] Statistic Recent Date Time Start Episode [id number] [facility] Statistic Recent Date Time End Anatomical Region Laterality Modality Other Specimen (Source) Anatomical Collection Method Collection Time Re ceived Time Location / / Volume Laterality 10/15/2019 3:46 PM BALANCE CLERK Narrative 10/16/2019 10:41 AM BALANCE CLERK [employer] Accolade (D) Pacemaker Device Check AP: <1 ?% ?? GEOPHYSICAL PARTY CHIEF: 61 % ?? Mode: VVIR 60-130 (was DDDR) ?? Underlying Rhythm: Afib with variable v rate in the 40s-60s ?? Heart Rate: Stable with adequate variabi lity ?? Sensing: WNL ?? Pacing Threshold: WNL ?? Impedance: WNL ?? Battery Status: 9 years ?? Device Site: Well healed ?? Atrial Arrhythmia: AT/AF burden remains 100%. Patient states that he is not currently taking his eliquis due to cost. He states he quit taking it about 2 weeks ago. I provided him the na mes of alternative anticoagulants and asked that he call his insurance to see what the cost would be. Ventricular Arrhythmia: 6 NSVT episodes logged with 2 EGMs available. 1 EGM shows RVR in the 170s. The other perez ws 8 beats of NSVT in the 200s. Echo in 11/2018 shows EF 39-44%. He is on metoprolol. Setting Change: Changed mode from DDDR t o VVIR due to being in chronic afib for >1 year. ?? Care Plan: Follow up in December with remot e device check. Patient is due to see Elda in November. Will inform Dr. Smith of NSVT episode. RORO RN ?? I have reviewed and interpreted the agustín ce interrogation, settings, programming and nurse's summary. The dev ice is functioning within normal device parameters. I agree with the curr ent findings, assessment and plan. 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
--- OUTSIDE RECORDS SUMMARY | 2022-06-22 08:54 | XMS_ITS | Encounter Summary ---
:1940 Author Organization [facility] Address [address] [place] [address] Care Team Providers Name Role Phone Slava Hernandez PA-C Primary Care Provider Reason for Visit Reason Onset Date Comments Refill Request 07/11/2019 Eliquis Encounter Details Date Type Department Care Team Description 07/11/[address] [facility] Zarina Smith MD Refill Request (Eliquis) Clinic [place] [address] [facility] [address] [place] [address] [address] [place] [phone] Social History Tobacco Use Types Packs/Day Years [...] [address] [place] [id number] (Wo rk) 08/16/2022 Ancillary Procedure Cardiology Timothy Smith MD [address] [place] [id number] (Wo rk) 08/16/2022 Office Visit Cardiology Timothy Smith MD [address] [place] [address] (Wo rk) documented as of this encounter Visit Diagnoses Diagnosis Paroxysmal atrial fibrillation (H) Atrial fibrillation documented in this encounter Care Teams [employer] Relationship Specialty Start Date End Date Slava Hernandez PA-C PCP - General Physician Wire Saw Operator 07/02/18 06/29/21 [facility] [address] [place], [place] [id number] documented as of this encounter
--- OUTSIDE RECORDS SUMMARY | 2022-06-22 08:54 | XMS_ITS | Encounter Summary ---
:1940 Author Organization [facility] Address [address] [place] [address] Care Team Providers Name Role Phone Slava Hernandez PA-C Primary Care Provider Reason for Visit Reason Comments CORE Enrollment Encounter Details Date Type Department Care Team Description 02/03/2019 [facility] SUPERVISOR SOLDER MAKING [address] [place], [place] [address] [facility] SUPERVISOR SOLDER MAKING [address] [place] [address] congestive heart [facility] e failure (H) [address] [facility] [address] [place] [phone] Social History Tobacco Use Types Packs/Day Years Used Date Never Smoker Smokeless Tobacco: Never Used Alcohol Use Standard Drinks/Week Comments No 0 (1 standard drink = 0.6 oz pure alcoho l) Sex Assigned at Date Recorded Not on file documented as of this encounter Last Filed Vital Signs Vital Sign Reading Time Taken Comments Blood Pressure 126/62 02/03/2019 10:41 AM CDT Pulse 86 02/03/2019 10:41 AM CDT Temperature - - Respiratory Rate - - Oxygen Saturation 92% 02/03/2019 10:41 AM CDT Inhaled Oxygen Concentration - - Weight 132.3 kg (291 lb 9.6 oz) 02/03/2019 10:41 AM 288 home CDT Height 180.3 cm (5' 11) 02/03/2019 10:41 AM CDT Body Mass Index 40.67 02/03/2019 10:41 AM CDT documented in this encounter Patient Instructions Patient Instructionsde Tony Moreno LPN - 02/03/2019 10:50 AM CDT Call [facility] nurse for any questions or concerns Mon-Fri 8am-4pm: [phone] For concerns after hours: [phone] Medication changes: No changes Plan from today: See Dr. Smith in March Lab results after the appt. Today documented in this encounter Progress Notes Lina Noriega APRN CNP - 02/03/2019 11:39 AM CDT Service Date: 02/03/2019 HISTORY OF PRESENT ILLNESS: Guillermo Villa is a pleasant 78-year-old patient who presents to [facility] for enrollment per Elda Johnson's request. He follows with Dr. Smith regarding the following issues: 1. Atrial flutter: Status post CTI ablation 01/[address] Smith. 2. Persistent atrial fibrillation: Initially on amiodarone. Underwent DC cardioversion in 05/2018 which was only briefly successful. He has been in persistent atrial fibrillation since 07/2018. Anticoagulation with Eliquis for a CHADS-VASc score of 4 (diabetes, CAD, age). 3. Sinus node dysfunction: Status post dual-chamber [employer] pacemaker 01/2016. 4. Coronary disease: Status post 4-vessel CABG 1986, thought to be BG-OM, VG- RCA, VG-LAD and VG-D atthe time. Angiogram 01/2016 showed patent VG. 5. Cardiomyopathy. LVEF 40%. Was on an AMINTA inhibitor in the past, is not due to renal insufficiency.He is on torsemide 20 mg daily. 6. Right bundle branch block. 7. Obstructive sleep apnea. 8. Type 2 diabetes. 9. Obesity. Was seen by Elda Johnson 01/22/2019. EKG had been done 11/15/2018 revealing intermittent V-paced at 76 beats per minute with PVCs of different morphology. Intrinsic beat showed a right bundle branch block morphology. QRS was 180 milliseconds (paced). Device interrogation 11/14/2018 showed atrial fibrillation with controlled ventricular response. He had 20 episodes of rapid ventricular response between 05/2018 and 10/17/2018. Device check 11/2018 showed 0% A pacing and 71% V pacing with an underlying rhythm of atrial fibrillation with V pacing. 100% atrial fibrillation. Echocardiogram 06/2018 showed an LVEF 45%-50% with mild to moderate concentric left ventricular hypertrophy. There were no significant valvular abnormalities. Echocardiogram 11/2018 revealed an LVEF of 39-44%, mild global hypokinesis of the left ventricle, moderate to severe inferior and inferolateral wall hypokinesis, mildly decreased right ventricular systolic function. Moderate to severe biatrial enlargement, IVC dilated. The patient has had multiple episodes of volume overload. His high weight was 317 pounds. Lasix was doubled and over time his medication was changed to torsemide. He is currently on 20 mg daily. He hadan episode where his weight went up 6 pounds and Elda increased his torsemide to 20 mg b.i.d. for3 days and his weight came down nicely. Today, he states his cooks meals from home. He does eat out at times. He does wear support socks. He does not really watch the salt, but over time he has educated himself on how high some of the foods are. His metoprolol was recently decreased from 100 mg a day to 50 mg a day. He denies increasedshortness of breath, PND, syncope or near-syncope. PHYSICAL EXAMINATION: VITAL SIGNS: Blood pressure 126/62, pulse is 86, weight is 291 pounds in the clinic and 288 pounds at home. Please see complete physical examination below. IMPRESSION AND PLAN: 1. Patient has an ejection fraction per echocardiogram of 39%-44%. He is not on an AMINTA inhibitor dueto renal insufficiency. CHF teaching was given. The patient refused further ischemic workup. His last coronary angiography revealed patent bypass and no intervention was completed. He has needed his diuretics adjusted from time to time. CHF teaching was given. I have also given him the direct phone number to the [facility] nurse if his weight increases suddenly or if he becomes more short of breath. The patient recently gained 6 pounds of fluid. Elda increased the torsemide from 20 mg daily to 20 mg b.i.d. His weight is back down to baseline. 2. Atrial fibrillation. Metoprolol recently decreased from 100 mg daily to 50 mg daily. His EKG reveals heart rate of 76 beats per minute when seen by Elda. The rhythm is atrial fibrillation. Last device checks reveal overall controlled atrial fibrillation. He is currently taking Eliquis for a CHADS-VASc score of 5 (hypertension, heart failure, age and CAD). 3. Coronary artery disease: CABG x4 in 1983. He had an angiogram in 2015 revealing patent bypass grafts. 4. He will follow up with Dr. Smith in March or sooner if needed. LINA NORIEGA APRN, [place]: [place] Name: RADHA VILLA MRN: [id number] Account: [id number] : 1940 Service Date: 02/03/2019 Document: [id number] Lina Noriega APRN CNP - 02/03/2019 10:50 AM CDT HPI and Plan: See [id number] No orders of the defined types were placed in this encounter. No orders of the defined types were placed in this encounter. There are no discontinued medications. Encounter Diagnosis Name Primary? Chronic systolic congestive heart failure (H) CURRENT MEDICATIONS: Current Outpatient Medications Medication Sig Dispense Refill ??? ACYCLOVIR 400 MG OR TABS 1 TABLET 3 TIMES DAILY-as need for Cold sores 30 6 ??? apixaban ANTICOAGULANT (ELIQUIS) 5 MG tablet Take 1 tablet (5 mg) by mouth 2 times daily 180 tablet 2 ??? celecoxib (CELEBREX) 200 MG capsule Take 200 mg by mouth 2 times daily ??? fenofibrate 160 MG tablet Take 160 mg by mouth daily. ??? GLIPIZIDE PO Take 5 mg by mouth 2 times daily (before meals) ??? metFORMIN (GLUCOPHAGE) 500 MG tablet Take 2 tablets (1,000 mg) by mouth 2 times daily (with meals) 60 tablet ??? metoprolol succinate ER (TOPROL-XL) 100 MG 24 hr tablet Take 0.5 tablets (50 mg) by mouth daily 90 tablet 1 ??? PANTOPRAZOLE SODIUM PO Take 40 mg by mouth every morning (before breakfast). ??? pravastatin (PRAVACHOL) 80 MG tablet Take [...] 5 minutes as needed for chest pain (Patient not taking: Reported on 02/03/2019) 25 tablet 3 ??? terazosin (HYTRIN) 5 MG capsule Take 1 capsule (5 mg) by mouth At Bedtime (Patient not taking: Reported on 01/01/2019) 90 capsule 3 ALLERGIES Allergies Allergen Reactions ??? No Known Allergies PAST MEDICAL HISTORY: Past Medical History: Diagnosis Date ??? Arthritis ??? Atrial flutter (H) sp ablation 02/27/2013 ??? Coronary artery disease sp CABG ??? Diabetes (H) ??? Hypertension ??? Malignant neoplasm (H) eye cancer tx with radiation 10 years ago, monitoring every 2 months ??? Melanoma (H) right eye ??? Mumps ??? PVC (premature ventricular contraction) ??? Sinus node dysfunction (H) with recurrent near syncope, PM 02/03/2016 ??? Sleep apnea PAST SURGICAL HISTORY: Past Surgical History: Procedure Laterality Date ??? C CABG, ARTERY-VEIN, FOUR 1985 ??? CATHETER, ABLATION 01/2013 Atrial flutter ??? CHOLECYSTECTOMY ??? HC LEFT HEART CATHETERIZATION 01/2012 see [...] on phone: None Gets together: None Attends christian service: None Active member of club or organization: None Attends meetings of clubs or organizations: None Relationship status: None ??? Intimate partner violence: Fear of current or ex partner: None Emotionally abused: None Physically abused: None Forced sexual activity: None Other Topics Concern ??? Parent/sibling w/ CABG, [place] or angioplasty before 65F 55M? No ??? [...] Narrative ??? None Review of Systems: Skin: Positive for nail changes spilting nails Eyes: Positive for glasses eye cancer removed ENT: Negative Respiratory: Positive for sleep apnea;CPAP;dyspnea on exertion;shortness of breath;cough at baseline- denies noted much SOB/GALLARDO ; cough d/t allergies per pt Cardiovascular: Positive for;edema wears compression stockings, has helped Gastroenterology: Positive for melena;hematochezia h/o above Genitourinary: Negative Musculoskeletal: Positive for arthritis;joint pain;nocturnal cramping Neurologic: Negative Psychiatric: Negative Heme/Lymph/Imm: Negative Endocrine: Positive for diabetes Physical Exam: Vitals: BP 126/62 (BP Location: Right arm, Patient Position: Chair, Cuff Size: Adult Regular) Pulse 86 Ht 1.803 m (5' 11) Wt 132.3 kg (291 lb 9.6 oz) SpO2 92% BMI 40.67 kg/m?? Constitutional: cooperative, alert and oriented, well developed, well nourished, in no acute distress morbidly obese uses a walker Skin: warm and dry to the touch pacemaker incision in the left infraclavicular area was well-healed Head: normocephalic, no masses or lesions Eyes: pupils equal and round wear eye glasses Lymph: ENT: no pallor or cyanosis Neck: JVP normal Respiratory: clear to auscultation Cardiac: irregularly irregular rhythm GI: abdomen soft obese Extremities and Muscular Skeletal: no deformities, clubbing, cyanosis, erythema observed 1+ Neurological: Psych: Alert and Oriented x 3 CC Elda Johnson APRN SUPERVISOR SOLDER MAKING [address] [place] [address] documented in this encounter Plan of Treatment Upcoming Encounters Date Type Specialty Care Team Description 06/26/2022 Ancillary Procedure Cardiology Seng Canchola MD [address] [place], [place] [address] (Wo rk) 08/16/2022 Ancillary Procedure Cardiology Timothy Smith MD [address] [place], [place] [address] (Wo rk) 08/16/2022 Office Visit Cardiology Timothy Smith MD [address] [place], [place] [id number] (Wo rk) documented as of this encounter Visit Diagnoses Diagnosis Chronic systolic congestive heart failur e (H) Chronic systolic heart failure documented in this encounter Care Teams Appraisal Manager Relationship Specialty Start Date End Date Slava Hernandez PA-C PCP - General Physician Piano Builder 07/02/18 06/29/[address] [address] documented as of this encounter
--- OUTSIDE RECORDS SUMMARY | 2022-06-22 08:54 | XMS_ITS | Encounter Summary ---
:1940 Author Organization [facility] Address [address] [place] [address] Care Team Providers Name Role Phone Slava Hernandez PA-C Primary Care Provider Reason for Visit CV Testing - Closed Specialty Diagnoses / Procedures Referred By Contact Refer red To Contact Diagnoses Syncope and collapse Steven Canchola, Procedures Cardiac Device Check - Remote [address] [place] [address] Referral ID Status Reason Start Date Expiration Date Visits Requ ested Visits Authorized [id number] Closed 12/10/2018 12/10/2019 1 1 Encounter Details Date Type Department Care Team Description 03/18/2019 Ancillary [facility] Steven Canchola Sync ope and Procedure [facility] MD Jose collapse [facility] [address] [facility] [address] [facility] [address] [place] [address] [place] [phone] (Wo rk) [address] [phone] Social History Tobacco Use Types Packs/Day Years [...] [address] [place] [id number] (Wo rk) 08/16/2022 Ancillary Procedure Cardiology Timothy Smith MD [address] [place] [id number] (Wo rk) 08/16/2022 Office Visit Cardiology Timothy Smith MD [address] [place] [id number] (Wo rk) documented as of this encounter Procedures Procedure Name Priority Date/Time Associated Comments Diagnosis INTERROGATION DEVICE Routine 03/18/2019 2:04 PM Syncope and R esults for this EVAL REMOTE PACER UP CDT collapse procedu re are in TO 90 DAYS the results section. documented in this encounter Results INTERROGATION DEVICE EVAL REMOTE PACER UP TO 90 DAYS (03/18/2019 2:04 PM CDT) Component Value Ref Test Analysis Performed Pathologis t Range Method Time At Signature Date Time [id number] [employer] Interrogation Session Implantable [employer] Pulse Generator Order Tracer Implantable L121 [place] EL [employer] Pulse Generator Model Implantable [id number] [employer] Pulse Generator Serial Number Type Remote [employer] Interrogation Session Clinic Name [facility] [employer] Implantable Pacemaker [employer] Pulse Generator Type Implantable [id number] [employer] Pulse Generator Implant Date Implantable Lead [facility] [facility] [employer] [facility]UL Order Tracer Implantable Lead [id number] Tendril [employer] C Model STS Implantable Lead [id number] [employer] Serial Number Implantable Lead [id number] [employer] Implant Date Implantable Lead Bipolar Lead [employer] Polarity Type Implantable Lead UNKNOWN [employer] Location Detail 1 Implantable Lead Right Atrium [employer] Location Implantable Lead [facility] Order Tracer Implantable Lead [id number] Tendril [employer] C Model STS Implantable Lead [id number] [employer] Serial Number Implantable Lead [id number] [employer] Implant Date Implantable Lead Bipolar Lead [employer] Polarity Type Implantable Lead UNKNOWN [employer] Location Detail 1 Implantable Lead Right Ventricle [employer] IC Location Brandon Setting DDDR [employer] Mode (NBG Code) Brandon Setting 60 {beats}/ [employer] Lower Rate Limit min Brandon Setting 130 {beats}/ [employer] Maximum Tracking min Rate Brandon Setting 130 {beats}/ [employer] Maximum Sensor min Rate Brandon Setting 300 ms [employer] HANS Delay Low Brandon Setting 300 ms [employer] PAV Delay Low Brandon Setting 200 ms [employer] PAV Delay High Brandon Setting 200 ms [employer] HANS Delay High Brandon Setting AT 140 {beats}/ [employer] Mode Switch Rate min Brandon Setting AT VDIR [employer] Mode Switch Mode Lead Channel Bipolar [employer] Setting Sensing Polarity Lead Channel 0.15 mV [employer] Setting Sensing Sensitivity Lead Channel Adaptive [employer] Setting Sensing Adaptation Mode Lead Channel Bipolar [employer] Setting Sensing Polarity Lead Channel 1.5 mV [employer] Setting Sensing Sensitivity Lead Channel Adaptive [employer] Setting Sensing Adaptation Mode Lead Channel Bipolar [employer] Setting Pacing Polarity Lead Channel 0.4 ms [employer] Setting Pacing Pulse Width Lead Channel 3.5 V [employer] Setting Pacing Amplitude Lead Channel Fixed Pacing [employer] Setting Pacing Capture Mode Lead Channel Bipolar [employer] Setting Pacing Polarity Lead Channel 0.4 ms [employer] Setting Pacing Pulse Width Lead Channel 1.3 V [employer] Setting Pacing Amplitude Lead Channel Adaptive [employer] Setting Pacing Capture Mode Zone Setting VT [employer] Type Category Zone Setting VT [employer] Vendor Type Category Zone Setting 375 ms [employer] Detection Interval Lead Channel 392 ohm [employer] Impedance Value Lead Channel 529 ohm [employer] Impedance Value Lead Channel 0.8 V [employer] Pacing Threshold Amplitude Lead Channel 0.4 ms [employer] Pacing Threshold Pulse Width Battery Date [employer] Time of Measurements Battery Status Beginning of [employer] Service Battery 114 mo [employer] Remaining Longevity Battery 100 % [employer] Remaining Percentage Brandon Statistic [id number] [employer] Date Time Start Brandon Statistic [id number] [employer] Date Time End Brandon Statistic 0 % [employer] RA Percent Paced Brandon Statistic 60 % [employer] RV Percent Paced Atrial Tachy [id number] [employer] Statistic Date Time Start Atrial Tachy [id number] [employer] Statistic Date Time End Atrial Tachy 100 % [employer] Statistic AT/AF [place] Percent Episode 1 [employer] Statistic Recent Count Episode AT/AF [employer] Statistic Type Category Episode AF [employer] Statistic Vendor Type Category Episode 1 [employer] Statistic Recent Count Episode SVT [employer] Statistic Type Category Episode SVT [employer] Statistic Vendor Type Category Episode 17 [employer] Statistic Recent Count Episode VT [employer] Statistic Type Category Episode NSVT [employer] Statistic Vendor Type Category Episode 0 [employer] Statistic Recent Count Episode VT [employer] Statistic Type Category Episode VT [employer] Statistic Vendor Type Category Episode [id number] [employer] Statistic Recent Date Time Start Episode [id number] [employer] Statistic Recent Date Time End Episode [id number] [employer] Statistic Recent Date Time Start Episode [id number] [employer] Statistic Recent Date Time End Episode [id number] [employer] Statistic Recent Date Time Start Episode [id number] [employer] Statistic Recent Date Time End Episode [id number] [employer] Statistic Recent Date Time Start Episode [id number] [employer] Statistic Recent Date Time End Episode APM-91 [employer] Identifier Episode Type Periodic EGM [employer] Category Episode Date [id number] [employer] Time Episode [id number]-[id number] [employer] Identifier Episode Type Other [employer] Category Episode Date [id number] [employer] Time Episode V-1456 [employer] Identifier Episode Type VT [employer] Category Episode Date [id number] [employer] Time Episode Duration 22 s [employer] Episode V-1455 [employer] Identifier Episode Type SVT [employer] Category Episode Vendor SVT [employer] Type Category Episode Date [id number] [employer] Time Episode Duration 110 s [employer]IC Episode V-1454 [employer] Identifier Episode Type VT [employer] Category Episode Date [id number] [employer] Time Episode Duration 15 s [employer]IC Episode V-1453 [employer] Identifier Episode Type VT [employer] Category Episode Date [id number] [employer] Time Episode Duration 21 s [employer]IC Episode V-1452 [employer] Identifier Episode Type VT [employer] Category Episode Date [id number] [employer] Time Episode Duration 21 s [employer]IC Episode V-1451 [employer] Identifier Episode Type VT [employer] Category Episode Date [id number] [employer] Time Episode Duration 15 s MED[employer]IC Episode V-1450 [employer] Identifier Episode Type VT [employer] Category Episode Date [id number] [employer] Time Episode Duration 17 s [employer]IC Episode V-1449 [employer] Identifier Episode Type VT [employer] Category Episode Date [id number] [employer] Time Episode Duration 13 s [employer]IC Episode V-1448 [employer] Identifier Episode Type VT [employer] Category Episode Date [id number] [employer] Time Episode Duration 19 s [employer] Episode ATR-6506 [employer] Identifier Episode Type AT/AF [employer] Category Episode Date [id number] [employer] Time Episode V-1447 [employer] Identifier Episode Type VT [employer] Category Episode Date [id number] [employer] Time Episode Duration 17 s [employer] Episode V-1446 [employer] Identifier Episode Type VT [employer] Category Episode Date [id number] [employer] Time Episode Duration 14 s [employer] Anatomical Region Laterality Modality Other Specimen (Source) Anatomical Collection Method Collection Time Re ceived Time Location / / Volume Laterality 03/18/2019 5:41 AM CDT Narrative 03/19/2019 2:34 PM CDT [employer] L121 [place] EL (D) Remote PPM Device CheckAP: 0%REGISTERED OCCUPATIONAL THERAPIST: 60%Mode: DDDRPresenting Rhythm: Chronic Afib and VPHeart Rate: Adequate heart rates per histogram Sensing: stabl e Pacing Threshold: RA: not preformed RV: stable Impedance: stable B attery Status: 9.5 years remaining Atrial Arrhythmia: Chronic Afib, taking Eliquis.Ventricular Arrhythmia: 17 VHRs. 3 EGMs available show RVR, longest episode lasting 1 minute 50 seconds, rates: 100-180bpm. Reviewed betzaida Lee RN. Care Plan: FU latitude q 3 months. Gave results and ne xt transmission date over the phone to patient. Jaleesa CVTI have revi ewed and interpreted the device interrogation, settings, programming and nurse's summary. The device is functioning within normal device paramet ers. I agree with the current findings, assessment and plan. Steven Canchola MD [facility] documented in this encounter Visit Diagnoses Diagnosis Syncope and collapse documented in this encounter Care Teams Fractionating Still Operator Relationship Specialty Start Date End Date Slava Hernandez PA-C PCP - General Physician Director Of Surgery 07/02/18 06/29/[address] [address] documented as of this encounter
--- OUTSIDE RECORDS SUMMARY | 2022-06-22 08:54 | XMS_ITS | Encounter Summary ---
:1940 Author Organization [place] Address [facility] [place] [address] Care Team Providers Name Role Phone Slava Hernandez PA-C Primary Care Provider Reason for Visit Reason Onset Date Comments Medication Request 10/31/2019 Encounter Details Date Type Department Care Team Description 10/31/2019 [facility] Urology Shea Rivera , Medication Request Clinic [place] [address] [place] [address] [place] [address] [phone] (Wo rk) Social History Tobacco Use Types Packs/Day Years Used Date Never Smoker Smokeless Tobacco: Never Used Alcohol Use Standard Drinks/Week Comments No 0 (1 standard drink = 0.6 oz pure alcoho l) Sex Assigned at Date Recorded Not on file documented as of this encounter Miscellaneous Notes Telephone Encounter - Heriberto Grossman - 10/31/2019 8:47 AM CST [facility] Call Center Phone Message May a detailed message be left on voicemail: yes Reason for Call: Medication Refill Request Has the patient contacted the pharmacy for the refill? Yes Name of medication being requested: tamsulosin (FLOMAX) 0.4 MG capsule Provider who prescribed the medication: Beverly Davis RN Pharmacy: [facility] - [place], [place] - [address] AT PORTAL TO REGISTERED [facility] Date medication is needed: 2/3 Action Taken: Message routed to: [facility]): urology [employer] HE[employer]CARE CONSULTANT documented in this encounter Plan of Treatment Upcoming Encounters Date Type Specialty Care Team Description 06/26/2022 Ancillary Procedure Cardiology Seng Canchola MD [address] [place] [address] (Wo rk) 08/16/2022 Ancillary Procedure Cardiology Timothy Smith MD [address] [place] [address] (Wo rk) 08/16/2022 Office Visit Cardiology Timothy Smith MD [address] [place] [address] (Wo rk) documented as of this encounter Visit Diagnoses Diagnosis BPH (benign prostatic hyperplasia) - Ria jing Unspecified hyperplasia of prostate with out urinary obstruction and other lower urinary tract symptoms (LUTS) documented in this encounter Care Teams Patient Biller Relationship Specialty Start Date End Date Slava Hernandez PA-C PCP - General Physician Campus Manager 07/02/18 06/29/21 [facility] [address] [place] [address] documented as of this encounter
--- OUTSIDE RECORDS SUMMARY | 2022-06-22 08:54 | XMS_ITS | Encounter Summary ---
:1940 Author Organization [facility] Address [address] [place] [address] Care Team Providers Name Role Phone Slava Hernandez PA-C Primary Care Provider Reason for Visit Reason Onset Date Comments Prior Auth - Medication 07/17/2019 Eliquis 5 MG tab let (Tier Exception) - DENIED Encounter Details Date Type Department Care Team Description 07/17/2019 Telephone [facility] Heart Zarina Smith MD Prior Auth - Medication Clinic [facility] [address] (Eliquis 5 MG tablet [address] (Tier Exception) - [facility] [address] [place] [address] DENIED) [place] [address] Social History Tobacco Use Types Packs/Day Years Used Date Never Smoker Smokeless Tobacco: Never Used Alcohol Use Standard Drinks/Week Comments No 0 (1 standard drink = 0.6 oz pure alcoho l) Sex Assigned at Date Recorded Not on file documented as of this encounter Miscellaneous Notes Telephone Encounter - Temitope Tamayo RN - 07/25/2019 3:57 PM CDT Spoke to patient regarding denial of PA. Patient aware he is in the donut hole and that is reason for increase in cost. Patient reports he has completed open enrollment for next year and has a $450 deductible and after that is met his copay for eliquis will be $45 for 30 days. SIENNA Okeefe Telephone Encounter - Monica Nguyen - 07/23/2019 2:45 PM CDT Images from the original note were not included. PRIOR AUTHORIZATION DENIED Medication: Eliquis 5 MG tablet (Tier Exception) - DENIED Denial Date: 07/20/2019 Denial Rational: Appeal Information: Please advise if appeal is necessary and place a letter of medical necessity under the letters tab in patient's chart and route back to [facility] PA MED [[id number]] Telephone Encounter - Lacy Washington RN - 07/21/2019 3:44 PM CDT Pt called as he is almost out of Eliquis and that cost it now~$400. Pt is most likely in the donut hole. A PA was started by someone outside of this clinic. Did explain to pt that this may be Denied aspt is in the coverage gap (donut hole). Have place one month of samples for pt to seed cone picker in [place]. Will watch for PA results. JNelsonRN Telephone Encounter - Monica Nguyen - 07/18/2019 10:52 AM CDT Images from the original note were not included. PA Initiation Medication: Eliquis 5 MG tablet (Tier Exception) - Insurance Company: Medicare Blue - Pharmacy Filling the Rx: [facility] - [place], [place] - [address] AT PORTAL TO REGISTERED [facility] Filling Pharmacy Filling Pharmacy Start Date: 07/18/2019 Telephone Encounter - Ron Fontaine - 07/17/2019 8:30 AM CDT Prior Authorization Retail Medication Request Medication/Dose: apixaban ANTICOAGULANT (ELIQUIS) 5 MG tablet- (TIER EXCEPTION) ICD Code: Paroxysmal atrial fibrillation (H) (I48.0) Insurance Name: [facility] Medicare Blue RX BIN: [id number] PCN: MEDDADV ID: [id number] RX GROUP: [id number] Pharmacy Information: Name Pharmacy: [facility] - [place] [address] AT Portal to Registered [facility] Sites documented in this encounter Plan of Treatment Upcoming Encounters Date Type Specialty Care Team Description 06/26/2022 Ancillary Procedure Cardiology Seng Canchola MD [address] [place] [id number] (Wo rk) 08/16/2022 Ancillary Procedure Cardiology Timothy Smith MD [address] [place] [address] (Wo rk) 08/16/2022 Office Visit Cardiology Timothy Smith MD [address] [place] [address] (Wo rk) documented as of this encounter Visit Diagnoses Not on filedocumented in this encounter Care Teams Acute Care Nurse Practitioner Relationship Specialty Start Date End Date Slava Hernandez PA-C PCP - General Physician Sales Solutions Associate 07/02/18 06/29/21 [facility] [address] [place] [address] documented as of this encounter
--- OUTSIDE RECORDS SUMMARY | 2022-06-22 08:54 | XMS_ITS | Encounter Summary ---
:1940 Author Organization [facility] Address [address] [place] [address] Care Team Providers Name Role Phone Slava Hernandez PA-C Primary Care Provider Reason for Visit Reason Onset Date Comments Refill Request 10/15/2019 send eliquis to mail order pharmacy-I gave him samples to PU as he has not bee n taking due to cost Encounter Details Date Type Department Care Team Description 10/15/[address] [facility] Heart Zarina Smith MD Refill Request (send [facility] [address] eliquis to mail order [address] [facility] [address] pharmacy-I gave him [address] [place] [address] samples to PU as he has [place] [phone] not been taking due to [phone] cost) Social History Tobacco Use Types Packs/Day Years Used Date Never Smoker Smokeless Tobacco: Never Used Alcohol Use Standard Drinks/Week Comments No 0 (1 standard drink = 0.6 oz pure alcoho l) Sex Assigned at Date Recorded Not on file documented as of this encounter Plan of Treatment Upcoming Encounters Date Type Specialty Care Team Description 06/26/2022 Ancillary Procedure Cardiology Seng Canchola MD [address] [place] [phone] (Wo rk) 08/16/2022 Ancillary Procedure Cardiology Timothy Smith MD [address] [place] [address] (Wo rk) 08/16/2022 Office Visit Cardiology Timothy Smith MD [address] [place] [address] (Wo rk) documented as of this encounter Visit Diagnoses Diagnosis Paroxysmal atrial fibrillation (H) Atrial fibrillation documented in this encounter Care Teams Ui Developer With Angular Js Relationship Specialty Start Date End Date Slava Hernandez PA-C PCP - General Physician Sign Installer 07/02/18 06/29/21 [facility] [address] [place] [address] documented as of this encounter
--- OUTSIDE RECORDS SUMMARY | 2022-06-22 08:54 | XMS_ITS | Encounter Summary ---
:1940 Author Organization [facility] Address [address] [place] [address] Care Team Providers Name Role Phone Slava Hernandez PA-C Primary Care Provider Encounter Details Date Type Department Care Team Description 01/23/2019 Documentation Only [facility] Montoya APRN BRASS POURER [address] [facility] [address] [facility] [address] [place] [address] [place], [place] [address] (Wo rk) Social History Tobacco Use Types Packs/Day Years Used Date Never Smoker Smokeless Tobacco: Never Used Alcohol Use Standard Drinks/Week Comments No 0 (1 standard drink = 0.6 oz pure alcoho l) Sex Assigned at Date Recorded Not on file documented as of this encounter Progress Notes Elda Johnson APRN CNP - 01/23/2019 1:21 PM CDT Can you ask Haris Villa to send a remote transmission a few days prior to his CORE clinic visit. I would like to be able to tell if his HRs have increased since 01/01 when his metoprolol was decreased Thank you, elda Elda Johnson APRN CNP - 01/23/2019 1:21 PM CDT Per device clinic the results would only give an average and not recent HRs therefore he will not send in a remote check prior to seeing CORE clinic documented in this encounter Plan of Treatment Upcoming Encounters Date Type Specialty Care Team Description 06/26/2022 Ancillary Procedure Cardiology Seng Canchola MD [address] [place] [address] (Wo rk) 08/16/2022 Ancillary Procedure Cardiology Timothy Smith MD [address] [place] [address] (Wo rk) 08/16/2022 Office Visit Cardiology Timothy Smith MD [address] [place] [address] (Wo rk) documented as of this encounter Visit Diagnoses Not on filedocumented in this encounter Care Teams Pyrometer Operator Relationship Specialty Start Date End Date Slava Hernandez PA-C PCP - General Physician Aging Room Hand 07/02/18 06/29/21 [facility] [address] [place] [address] documented as of this encounter
--- OUTSIDE RECORDS SUMMARY | 2022-06-22 08:54 | XMS_ITS | Encounter Summary ---
:1940 Author Organization [facility] Address [address] [place] [address] Care Team Providers Name Role Phone Slava Hernandez PA-C Primary Care Provider Encounter Details Date Type Department Care Team Description 01/22/2019 Orders Only [facility] Heart [facility] [place] fibrillation (H) [address] [facility] [address] [place] [address] Social History Tobacco Use [...] Procedure Cardiology Seng Canchola MD [address] [place] [address] (Wo rk) 08/16/2022 Ancillary Procedure Cardiology Timothy Smith MD [address] [place] [phone] (Wo rk) 08/16/2022 Office Visit Cardiology Timothy Smith MD [address] [place] [phone] (Wo rk) documented as of this encounter Procedures Procedure Name Priority Date/Time Associated Diagnosis Comme nts BASIC METABOLIC STAT 01/22/2019 9:14 AM Persistent atrial R esults for this PANEL CDT fibrillation (H) procedure a re in the results section. documented in this encounter Results (ABNORMAL) Basic metabolic panel (01/22/2019 9:14 AM CDT) Analysis Performed At [facility] Time Signature Sodium 140 133 - 144 01/22/2019 [facility] mmol/L 10:08 AM [facility] Potassium 4.1 3.4 - 5.3 01/22/2019 [facility] mmol/L 10:08 AM [facility] Chloride 105 94 - 109 01/22/2019 [facility] mmol/L 10:08 AM [facility] Carbon Dioxide 31 20 - 32 01/22/2019 [facility] mmol/L 10:17 AM [facility] Anion Gap 4 3 - 14 01/22/2019 [facility] mmol/L 10:17 AM [facility] Glucose 102 (H) 70 - 99 01/22/2019 [facility] mg/dL 10:17 AM [facility] Urea Nitrogen 37 (H) 7 - 30 01/22/2019 [facility] mg/dL 10:17 AM [facility] Creatinine 1.63 (H) 0.66 - 01/22/2019 [facility] 1.25 mg/dL 10:17 AM [facility] GFR Estimate 39 (L) >60 01/22/2019 [facility] mL/min/{1. 10:17 AM [facility] 73_m2} HOSPITAL Comment: Non GFR Calc Starting 09/17/2018, serum creatinine ba sed estimated GFR (eGFR) will be calculated using the Chronic Kidney Dise [facility] Epidemiology Collaboration (CKD-EPI) equation. GFR Estimate If 45 (L) >60 mL/min/{1.73_m2} 01/22/2019 10:17 AM [facility] Comment: GFR Calc Starting 09/17/2018, serum creatinine ba sed estimated GFR (eGFR) will be calculated using the Chronic Kidney Dise [facility] Epidemiology Collaboration (CKD-EPI) equation. Calcium 9.7 8.5 - 10.1 mg/dL 01/22/2019 10:17 AM [facility] Specimen Anatomical Collection Method Collection Time Receive d Time (Source) Location / / Volume Laterality Blood specimen 01/22/2019 9:14 AM 019 9:17 (specimen) CDT AM CDT Timothy Smith MD LAB - BLOOD ORDERABLES Performing Organization Address City/State/ZIP Code Phon e Number [facility] [address] [place], [place] [address] [facility] [address] [place], [place] [address] [place] [address] documented in this encounter Visit Diagnoses Diagnosis Persistent atrial fibrillation (H) Atrial fibrillation documented in this encounter Care Teams Commissioner Of Relocation Services Relationship Specialty Start Date End Date Slava Hernandez PA-C PCP - General Physician Equipment Tester 07/02/18 06/29/[address] [address] documented as of this encounter
--- OUTSIDE RECORDS SUMMARY | 2022-06-22 08:54 | XMS_ITS | Encounter Summary ---
:1940 Author Organization [facility] Address [address] [place] [address] Care Team Providers Name Role Phone Slava Hernandez PA-C Primary Care Provider Reason for Visit CV Testing (Routine) - Closed Specialty Diagnoses / Procedures Referred By Contact Refer red To Contact Diagnoses Cardiac pacemaker in situ Basil Guadalupe MD Procedures Cardiac Device Check - Remote [address] [place] [address] Referral ID Status Reason Start Date Expiration Date Visits Requ ested Visits Authorized [id number] Closed 10/15/2019 10/14/2020 1 1 Encounter Details Date Type Department Care Team Description 01/27/2020 Ancillary Procedure [facility] Basil Guadalupe ardiac pacemaker in [facility] MD [facility] [address] [facility] [address] [facility] [address] [place] [address] [place] [phone] [address] (Work) [phone] Social History Tobacco Use Types Packs/Day Years [...] [address] [place] [phone] (Wo rk) 08/16/2022 Ancillary Procedure Cardiology Timothy Smith MD [address] [place] [address] (Wo rk) 08/16/2022 Office Visit Cardiology Timothy Smith MD [address] [place], [place] [address] (Wo rk) documented as of this encounter Procedures Procedure Name Priority Date/Time Associated Comments Diagnosis INTERROGATION DEVICE Routine 01/27/2020 7:40 AM Cardiac pacema ker Results for this EVAL REMOTE PACER UP CDT in situ procedu re are in TO 90 DAYS the results section. documented in this encounter Results INTERROGATION DEVICE EVAL REMOTE PACER UP TO 90 DAYS (01/27/2020 7:40 AM CDT) Component Value Ref Test Analysis Performed Pathologis t Range Method Time At Signature Date Time [id number] [employer] Interrogation Session Implantable [employer] Pulse Generator Sky Cap Implantable L121 ESSENTIO EL [employer] Pulse Generator Model Implantable [id number] [employer] Pulse Generator Serial Number Type Remote [employer] Interrogation Session Clinic Name [facility] [employer] Implantable Pacemaker [employer] Pulse Generator Type Implantable [id number] [employer] Pulse Generator Implant Date Implantable Lead [facility] RAUL Sky Cap Implantable Lead 2087TC Tendril [employer]I C Model STS Implantable Lead [id number] [employer] Serial Number Implantable Lead [id number] [employer] Implant Date Implantable Lead Bipolar Lead [employer] Polarity Type Implantable Lead UNKNOWN [employer] Location Detail 1 Implantable Lead Right Atrium [employer] Location Implantable Lead [employer] Sky Cap Implantable Lead 2087TC Tendril [employer] C Model STS Implantable Lead [id number] [employer] Serial Number Implantable Lead [id number] [employer] [...] 100 % [employer] Remaining Percentage Brandon Statistic [id number] [employer] Date Time Start Brandon Statistic [id number] [employer] Date Time End Brandon Statistic 0 [...] [place] [employer] Statistic Vendor Type Category Episode [id number] [employer] Statistic Recent Date Time Start Episode [id number] [employer] Statistic Recent Date Time End Episode [id number] [employer] Statistic Recent Date Time Start Episode [id number] [employer] Statistic Recent Date Time End Episode [id number] [employer] Statistic Recent Date Time Start Episode [id number] [employer] Statistic Recent Date Time End Episode [id number] [employer] Statistic Recent Date Time Start Episode [id number] [employer] Statistic Recent Date Time End Episode APM-94 [employer] Identifier Episode Type Periodic EGM [employer] Category Episode Date [id number] [employer] Time Episode [id number] [employer] Identifier Episode Type Other [employer] Category Episode Date [id number] [employer] Time Episode V-1550 [employer] Identifier Episode Type [place] [employer] Category Episode Date [id number] [employer] Time Episode Duration 16 s [employer] Episode V-1549 [employer] Identifier Episode Type [place] [employer] Category Episode Date [id number] [employer] Time Episode Duration 26 s [employer] Episode V-1548 [employer] Identifier Episode Type [place] [employer] Category Episode Date [id number] [employer] Time Episode Duration 28 s [employer] Episode V-1547 [employer] Identifier Episode Type [place] [employer] Category Episode Date [id number] [employer] Time Episode Duration 12 s [employer]IC Episode V-1546 [employer] Identifier Episode Type [place] [employer] Category Episode Date [id number] [employer] Time Episode Duration 14 s [employer]IC Episode V-1545 [employer] Identifier Episode Type [place] [employer] Category Episode Date [id number] [employer] Time Episode Duration 21 s [employer]IC Episode V-1544 [employer] Identifier Episode Type [place] [employer] Category Episode Date [id number] [employer] Time Episode Duration 14 s [employer] Episode V-1543 [employer] Identifier Episode Type [place] [employer] Category Episode Date [id number] [employer] Time Episode Duration 37 s [employer] Episode V-1542 [employer] Identifier Episode Type [place] [employer] Category Episode Date [id number] [employer] Time Episode Duration 14 s [employer] Episode V-1541 [employer] Identifier Episode Type [place] [employer] Category Episode Date [id number] [employer] Time Episode Duration 23 s [employer] Anatomical Region Laterality Modality Other Specimen (Source) Anatomical Collection Method Collection Time Re ceived Time Location / / Volume Laterality 01/27/2020 12:41 AM CDT Narrative 02/10/2020 3:26 PM CDT [employer] (S) Remote PPM Device Check RECEIVING TELLER: 35%, Chronic AFib, taking Eliquis Mode: VVIR Presenting Rhythm: RECEIVING TELLER Heart Rate: adequate heart rates per his togram Sensing: stable Pacing Threshold: stable Impedance: stable Battery Status: 12 years remaining Atrial Arrhythmia: n/a Ventricular Arrhythmia: 14 ventricular h igh rates. 2 EGMs available showing irregular VS events suggestive o f RVR, episodes lasting 12-37 seconds, rates 140 - 175bpm. Care Plan: F/u PPM Latitude q 3 months. Gave patient results over the phone. JULY KeenT I have reviewed and interpreted the agustín ce interrogation, settings, programming and nurse's summary. The dev ice is functioning within normal device parameters. I agree with the curr ent findings, assessment and plan. Basil Guadalupe MD CV CARDIAC SERVICES ORDERABL ES documented in this encounter Visit Diagnoses Diagnosis Cardiac pacemaker in situ documented in this encounter Care Teams Trimmer Machine Operator Relationship Specialty Start Date End Date Slava Hernandez, PAIlanaC PCP - General Physician Epidemiology Investigator 07/02/18 06/29/21 [facility] [address] [place] [address] documented as of this encounter
--- OUTSIDE RECORDS SUMMARY | 2022-06-22 08:54 | XMS_ITS | Encounter Summary ---
:1940 Author Organization [place] Address [address] [place] [address] Care Team Providers Name Role Phone Slava Hernandez PA-C Primary Care Provider Reason for Referral CV Testing (Routine) - Closed Specialty Diagnoses / Procedures Referred By Contact Refer red To Contact Diagnoses Cardiac pacemaker in situ [facility] Cv Cardiac Services Procedures Cardiac Device Check - Remote [address] [facility] [address] [place] [phone] Referral ID Status Reason Start Date Expiration Date Visits Requ ested Visits Authorized [id number] Closed 01/23/2019 01/23/2020 1 1 Encounter Details Date Type Department Care Team Description 01/23/2019 Orders Only [facility] Kitty Myers, Cardi ac pacemaker in [facility] RN situ (Ria jing Dx) Heart Care [address] [facility] [address] [place] [phone] Social History [...] Ancillary Procedure Cardiology Seng Canchola MD [address] [place] [id number] (Wo rk) 08/16/2022 Ancillary Procedure Cardiology Tiomthy Smith MD [address] [place] [id number] (Wo rk) 08/16/2022 Office Visit Cardiology Timothy Smith MD [address] [place] [id number] (Wo rk) documented as of this encounter Results INTERROGATION DEVICE EVAL REMOTE PACER UP TO 90 DAYS (06/25/2019 8:54 AM CDT) Component Value Ref Test Analysis Performed Pathologis t Range Method Time At Signature Date Time [id number] [employer] Interrogation Session Implantable [place] [employer] Pulse Generator Internet Marketing Specialist Implantable L121 [place] EL [employer] Pulse Generator Model Implantable [id number] [employer] Pulse Generator Serial Number Type Remote [employer] Interrogation Session Clinic Name [facility] [employer] Implantable Pacemaker [employer] Pulse Generator Type Implantable [id number] [employer] Pulse Generator Implant Date Implantable Lead [facility] [employer] RAUL Internet Marketing Specialist Implantable Lead [id number] Tendril MEDTRONI C Model STS Implantable Lead [id number] [employer] Serial Number Implantable Lead [id number] [employer] Implant Date Implantable Lead Bipolar Lead [employer] Polarity Type Implantable Lead UNKNOWN [employer] Location Detail 1 Implantable Lead Right Atrium [employer] Location Implantable Lead [facility] [employer] RAUL Internet Marketing Specialist Implantable Lead 2088TC Tendril MEDTRONI C Model STS Implantable Lead [id number] [employer] Serial Number Implantable Lead [id number] [employer] Implant Date Implantable Lead Bipolar Lead [employer] Polarity Type Implantable Lead UNKNOWN [employer] Location Detail 1 Implantable Lead Right Ventricle MEDTR[employer] IC Location Brandon Setting DDDR [employer] Mode (NBG Code) Brandon Setting 60 {beats}/ [employer] Lower Rate Limit min Brandon Setting 130 {beats}/ [employer] Maximum Tracking min Rate Brandon Setting 300 ms MEDTRONIC [...] 375 ms [employer] Detection Interval Lead Channel Check Lead [employer] Status Lead Channel 418 ohm [employer] Impedance Value Lead Channel 533 ohm [employer] Impedance Value Lead Channel 0.8 V [employer] Pacing Threshold Amplitude Lead Channel 0.4 ms [employer] Pacing Threshold Pulse Width Battery Date [id number] [employer] Time of Measurements Battery Status Beginning of [employer] Service Battery 108 mo [employer] Remaining Longevity Battery 100 % [employer] Remaining Percentage Brandon Statistic [id number] [employer]IC Date Time Start Brandon Statistic [id number] [employer] Date Time End Brandon Statistic 0 % [employer] RA Percent Paced Brandon Statistic 62 % [employer] RV Percent Paced Atrial Tachy [id number] [employer] Statistic Date Time Start Atrial Tachy [id number] [employer] Statistic Date Time End Atrial Tachy 100 % [employer] Statistic AT/AF Kirvin Percent Episode 5 [employer] Statistic Recent Count Episode AT/AF [employer] Statistic Type Category Episode AF [employer] Statistic Vendor Type Category Episode 1 [employer] Statistic Recent Count Episode SVT [employer] Statistic Type Category Episode SVT [employer]TR[employer] Statistic Vendor Type Category Episode 91 [employer]IC Statistic Recent Count Episode VT [employer]TR[employer]IC Statistic Type Category Episode NSVT [employer]TR[employer]IC Statistic Vendor Type Category Episode 0 [employer]TR[employer]IC Statistic Recent Count Episode VT MEDTRONIC Statistic Type Category Episode VT [employer]TR[employer]IC Statistic Vendor Type Category Episode [id number] [employer] Statistic Recent Date Time Start Episode [id number] [employer] Statistic Recent Date Time End Episode [id number] [employer] Statistic Recent Date Time Start Episode [id number] [employer] Statistic Recent Date Time End Episode [id number] [employer] Statistic Recent Date Time Start Episode [id number] [employer] Statistic Recent Date Time End Episode [id number] [employer] Statistic Recent Date Time Start Episode [id number] [employer]IC Statistic Recent Date Time End Episode APM-92 [employer]IC Identifier Episode Type Periodic EGM [employer] Category Episode Date [id number] [employer] Time Episode [id number]-[id number] [employer]IC Identifier Episode Type Other [employer]TRONIC Category Episode Date [id number] [employer]IC Time Episode ATR-6510 [employer]IC Identifier Episode Type AT/AF [employer] Category Episode Date [id number] MED[employer]IC Time Episode V-1530 MEDTRONIC Identifier Episode Type VT [employer]TR[employer]IC Category Episode Date [id number] MED[employer]IC Time Episode Duration 15 s MEDTRONIC Episode V-1529 MEDTRONIC Identifier Episode Type VT MEDTRONIC Category Episode Date [id number] [employer]IC Time Episode Duration 14 s MEDTRONIC Episode V-1528 MEDTRONIC Identifier Episode Type VT MEDTRONIC Category Episode Date [id number] [employer]IC Time Episode Duration 15 s MEDTRONIC Episode V-1527 MEDTRONIC Identifier Episode Type VT MEDTRONIC Category Episode Date [id number] [employer]IC Time Episode Duration 14 s MEDTRONIC Episode V-1526 MEDTR[employer]IC Identifier Episode Type VT MEDTRONIC Category Episode Date [id number] [employer] Time Episode Duration 14 s MEDTRONIC Episode V-1525 MEDTR[employer]IC Identifier Episode Type VT MEDTRONIC Category Episode Date [id number] [employer] Time Episode Duration 15 s MEDTRONIC Episode V-1524 MEDTRONIC Identifier Episode Type VT MEDTRONIC Category Episode Date [id number] [employer]TR[employer]IC Time Episode Duration 40 s MEDTRONIC Episode V-1523 MEDTRONIC Identifier Episode Type VT MEDTRONIC Category Episode Date [id number] [employer] Time Episode Duration 16 s MEDTRONIC Episode V-1522 MEDTR[employer]IC Identifier Episode Type VT [employer]TR[employer]IC Category Episode Date [id number] [employer] Time Episode Duration 15 s MEDTRONIC Episode V-1521 MEDTRONIC Identifier Episode Type VT [employer]IC Category Episode Date [id number] [employer] Time Episode Duration 14 s MED[employer]IC Episode ATR-6509 [employer]IC Identifier Episode Type AT/AF [employer] Category Episode Date [id number] [employer] Time Episode Duration 1,020,750 s MEDTRONIC Episode ATR-6508 [employer]IC Identifier Episode Type AT/AF [employer]IC Category Episode Date [id number] [employer]IC Time Episode Duration 2,246,835 s MEDTR[employer]IC Episode ATR-6507 [employer]IC Identifier Episode Type AT/AF [employer] Category Episode Date [id number] [employer] Time Episode Duration 30 s [employer]IC Anatomical Region Laterality Modality Other Specimen (Source) Anatomical Collection Method Collection Time Re ceived Time Location / / Volume Laterality 06/25/2019 5:40 AM CDT Narrative 07/01/2019 8:21 AM CDT [employer] L121 [place] EL (D) Remote PPM Device CheckAP: 0%PSYCHOLOGICAL TESTS SALES AGENT: 62%Mode: DDDRPresenting Rhythm: Afib wit h PSYCHOLOGICAL TESTS SALES AGENT & VSHeart Rate: adequate heart rates per histogramSensing: stable Pacing Threshold: RA: not performed RV: stableImpedance: stableBat rissa Status: 9 years remainingAtrial Arrhythmia: remains in A fib 100% of the time, taking EliquisVentricular Arrhythmia: 10 vent h igh rates. 2 EGMs available showing Afib with RVR lasting ??3 - 4 se conds, rates 170 - 185bpm. Care Plan: Order placed for annual threshold to be scheduled in Aug/Oct. Pt seeing Dr. Smith later today. No answer, le ft message with results. Darius CVTI have reviewed and interpreted the d evice interrogation, settings, programming and nurse's summary. The dev ice is functioning within normal device parameters. I agree with the curr ent findings, assessment and plan. Basil Guadalupe MD CV CARDIAC SERVICES ORDERABL ES documented in this encounter Visit Diagnoses Diagnosis Cardiac pacemaker in situ - Primary Cardiac pacemaker in situ documented in this encounter Care Teams Railroad Brake Repairer Relationship Specialty Start Date End Date Slava Hernandez PA-C PCP - General Physician Offset Second Press Operator 07/02/18 06/29/[address] [address] documented as of this encounter
--- OUTSIDE RECORDS SUMMARY | 2022-06-22 08:54 | XMS_ITS | Encounter Summary ---
:1940 Author Organization [place] Address [address] [place] [address] Care Team Providers Name Role Phone Slava Hernandez PA-C Primary Care Provider Encounter Details Date Type Department Care Team Description 02/03/2019 Travel Social History Tobacco Use Types Packs/Day [...] [address] [place] [id number] (Wo rk) 08/16/2022 Ancillary Procedure Cardiology Timothy Smith MD [address] [place] [id number] (Wo rk) 08/16/2022 Office Visit Cardiology Timothy Smith MD [address] [place] [id number] (Wo rk) documented as of this encounter Visit Diagnoses Not on filedocumented in this encounter Care Teams Switchboard Manager Relationship Specialty Start Date End Date Slava Hernandez PA-C PCP - General Physician Payroll Administrative Assistant 07/02/18 06/29/21 [facility] [id number] [place] [address] [place] [address] documented as of this encounter
--- OUTSIDE RECORDS SUMMARY | 2022-06-22 08:54 | XMS_ITS | Encounter Summary ---
:1940 Author Organization [facility] Address [address] [place] [address] Care Team Providers Name Role Phone Slava Hernandez PA-C Primary Care Provider Reason for Referral (Routine) - Closed Specialty Diagnoses / Procedures Referred By Contact Refer red To Contact Diagnoses Persistent atrial fibrillation (H) Cardiac pacemaker in situ Elda Johnson APRN CNP [address] [place] [address] Referral ID Status Reason Start Date Expiration Date Visits Requ ested Visits Authorized [id number] Closed 01/20/2020 01/19/2021 1 1 Reason for Visit Reason Onset Date Comments Atrial Fib 01/20/2020 (Routine) - Closed Specialty Diagnoses / Procedures Referred By Contact Refer red To Contact Diagnoses Persistent atrial fibrillation (H) Timothy Smith MD [address] [place] [address] Referral ID Status Reason Start Date Expiration Date Visits Requ ested Visits Authorized [id number] Closed 06/25/2019 06/24/2020 1 1 Encounter Details Date Type Department Care Team Description 01/20/2020 Virtual Visit [facility] Elda Johnson atrial fibrillation (Primary Dx); [facility] Shilpi Montoya APRN Cardiac pacemaker in situ; [address] [facility] Paroxysmal atrial fibrillation (H) [facility] [address] [place] [phone] [address] [place] [id number] Social History Tobacco Use Types Packs/Day Years [...] this encounter Progress Notes Elda Johnson APRN COLLECTION ANALYST - 01/20/2020 9:30 AM CDT Haris Villa is a 79 year old male who is being evaluated via a billable video visit. The patient has been notified of following: This video visit will be conducted via a call between you and your physician/provider. We have found that certain health care needs can be provided without the need for an in-person physical exam. This service lets us provide the care you need with a video conversation. If a prescription is necessarywe can send it directly to your pharmacy. If lab work is needed we can place an order for that and you can then stop by our lab to have the test done at a later time. Video visits are billed at different rates depending on your insurance coverage. Please reach out [facility] insurance provider with any questions. If during the course of the call the physician/provider feels a video visit is not appropriate, you will not be charged for this service. BP: 126/65 HR: 86 Height: 5-11.5 Weight: 295lb Ronel Barba LPN Patient has given verbal consent for Video visit? Yes How would you like to obtain your AVS? Mail a copy Patient would like the video invitation sent by: Text to cell phone: [phone] [employer] Video Start Time: 9:30 am Additional provider notes: Haris Villa is a 79 year old male who is following up for 6 month cardiology appointment. This visit is being conducted as a virtual visit due to the emphasis on mitigation of the COVID-19 virus pandemic. The clinician has decided that the risk of an in-office visit outweighs the benefit for this patient. He is a patient of Dr Smith. His medical history includes 1. Atrial flutter s/p CTI ablation 01/[address] Smith 2. Persistent atrial fibrillation, initially on amiodarone therapy. ??He underwent DC cardioversion 05/2018 which was only briefly successful??and amiodarone. He has been in persistent atrial fibrillation since 07/2018. Anticoagulation with Eliquis??for CHADSVASc of 4 (diabetes, CAD, age++) 3. Sinus node dysfunction??s/p??dual-chamber [employer] pacemaker 01/2016. 4. Coronary disease??s/p 4v CABG (1986) - ??VG -OM, VG-RCA, VG-LAD and VG- Diagonal at that time. Angiogram 01/2016 showed patent VGs 5. Cardiomyopathy?? 6. RBBB 7. Obstructive sleep apnea 8. type 2 diabetes 9. obesity Diagnostics: ?? Device check (10/2019) revealed A-paced <1% GLASS ARTIST: 61 % Stable leads. Battery life 9 years Atrial Arrhythmia: 100% atrial fibrillation with controlled Ventricular rates Ventricular Arrhthymias 2 EGM 1 shows RVR in the 170s. 8 beats NSVT at 200 bpm. ?? ECHO (11/2018) revealed EF 39-44%, In 03/2018 , he saw Dr. Smith with increasing edema, fatigue and shortness of breath. ??His diuretics were adjusted and at that time he declined a coronary angiogram. ? In 07/[address] Smith??and was doing better with only minimal fatigue and dyspnea his EF at that time was 45-50%. ? In 11/2018 he saw his PCP for increased bilateral lower extremity edema. ??His creatinine at that time was 1.4 and his weight was 317 pounds. ??His Lasix was increased to 40 mg twice daily.? On 11/15/18 he saw HANK Jacobo,??with increased??lower extremity edema and shortness of breath,??significant decrease in exercise tolerance with no significant improvement with the increase of diuretic. ??Patient did not feel this was related to his coronary artery disease but did admit to increasedsodium in his diet. ?At that time,??an echo and repeat BMP was recommended and there was a discussion to proceed with a stress test versus a coronary angiogram but the patient declined.??In subsequent visits his lasix 40 mg twice daily was changed to torsemide 20 mg twice daily and was asked to return in 1 week for follow up but did not return. Again he declined further ischemic work up. Due to elevated creatinine of 2.2 his torsemide was decreased to 20 mg daily. He was subsequently [facility]. In 10/2019, his device check revealed NSVT lasting 8 beats at 200 bpm. In addition he had stopped OACdue to cost, Today he was on video and has no complaints. He denies chest pain or pressure, dizziness, syncope, angina, dyspnea at rest or with exertion, palpitations, orthopnea, or PND. He does have LE edema whichis stable. He is taking Eliquis 2.5 mg in the morning and 5 mg at night and denies bleeding, hematuria, hematochezia, epistaxis and signs/symptoms of stroke. He is taking his other medications as prescribed. He is not able to walk far due to back pain. Physical Exam Constitutional: He is oriented to person, place, and time. He appears well- developed and well-nourished. HENT: Head: Normocephalic. Eyes: Pupils are equal, round, and reactive to light. Neck: Normal range of motion. Musculoskeletal: General: Edema present. Neurological: He is alert and oriented to person, place, and time. He has normal reflexes. Psychiatric: He has a normal mood and affect. His behavior is normal. Judgment and thought content normal. REmainder of exam was deferred due to public health pandemic. ASSESSMENT AND PLAN HFrEF - ischemic cardiomyopathy Patient's has had a low EF which has varied from 35-40% to 45-50% in the past. Most recent ECHO shows EF 40% with wall motion abnormalities which is new. In the past, patient has refused further ischemia work up as he said the last angiogram revealed patent bypass and no interventions were completed. ? He is not a candidate for an AMINTA-I due to elevated creatinine His weight is down to 295# which has been stable. He is currently taking lasix 40 mg daily. On virtual exam today he does have LE edema which he states is normal for him ?? Atrial fibrillation. Since 2018, he has been chronic atrial fibrillation after not maintaining sinus rhythm while on amiodarone. He is asymptomatic. For rate control he is taking metoprolol XL 50 mg daily For anticoagulation for CHADS VASC 5 (HTN, HF, age++, CAD) he is prescribed Eliquis 5 mg twice daily. Due to cost he is taking 2.5 mg in the morning and 5 mg in the evening. We did discuss options including warfarin which he had adverse side effects and Financial programs through [employer]. ?? Coronary artery disease. Patient had??a CABG x 4 in 1983. ??He had an angiogram in 2016 which revealed patent bypass grafts. ?? He is asymptomatic He will continue on metoprolol succinate 50 mg daily, pravastatin, fenofibrate and he has nitroglycerin as needed. ? Sinus node dysfunction s/p dual chamber permanent pacemaker ?? Normal device function ?? Stable leads ?? Follow up with device clinic on a quarterly basis Plan: ?? Follow up in [address] Smith and encouraged pt to seek [employer]'s financial assistance for Eliquis ?? Patient expresses understanding and agreement with the plan. ?? I appreciate the chance to help with Haris Villa Please let me know if you have any questions or concerns. ?? Elda Johnson APRN, AQUILINO Video-Visit Details Type of service: Video Visit Video End Time (time video stopped): 9:40 Originating Location (pt. Location): Home Distant Location (provider location): [facility] Mode of Communication: Video Conference via [employer] Elda Johnson APRN COLLECTION ANALYST documented in this encounter Plan of Treatment Upcoming Encounters Date Type Specialty Care Team Description 06/26/2022 Ancillary Procedure Cardiology Seng Canchola MD [address] [place] [id number] (Wo rk) 08/16/2022 Ancillary Procedure Cardiology Timothy Smith MD [address] [place] [id number] (Wo rk) 08/16/2022 Office Visit Cardiology Timothy Smith MD [address] [place] [id number] (Wo rk) Scheduled Referrals Name Type Priority Associated Diagnoses Order S chedule Follow-Up with Referral Routine Persistent atrial Expected : Director Of Real Estate fibrillation 07/21/2020 Cardiac pacemaker in (Approx imate), situ Expires: 01/19/2021 documented as of this encounter Visit Diagnoses Diagnosis Persistent atrial fibrillation (H) - [facility] Atrial fibrillation Cardiac pacemaker in situ Paroxysmal atrial fibrillation (H) Atrial fibrillation documented in this encounter Care Teams Pantograph I Engraver Relationship Specialty Start Date End Date Slava Hernandez, MARIBEL PCP - General Physician Salesperson Sheet Music 07/02/18 06/29/21 [facility] [id number] [place] [id number] documented as of this encounter
--- OUTSIDE RECORDS SUMMARY | 2022-06-22 08:54 | XMS_ITS | Encounter Summary ---
:1940 Author Organization [facility] Address [address] [place] [address] Care Team Providers Name Role Phone Slava Hernandez PA-C Primary Care Provider Reason for Referral (Routine) - Closed Specialty Diagnoses / Procedures Referred By Contact Refer red To Contact Diagnoses Persistent atrial fibrillation (H) Chronic systolic congestive heart failure (H) Elda Johnson APRN CNP [email or web address] [place] [address] Referral ID Status Reason Start Date Expiration Date Visits Requ ested Visits Authorized [id number] Closed 01/22/2019 01/22/2020 1 1 Specialty Diagnoses / Procedures Referred By Contact Refer red To Contact Elda Johnson APRN CNP [address] [place] [address] Referral ID Status Reason Start Date Expiration Date Visits Requ ested Visits Authorized Reason for Visit Reason Comments Follow Up 2 week followup - Closed Specialty Diagnoses / Procedures Referred By Contact Refer red To Contact Diagnoses Persistent atrial fibrillation (H) Timothy Smith MD [address] [place] [address] Referral ID Status Reason Start Date Expiration Date Visits Requ ested Visits Authorized [id number] Closed 01/01/2019 01/01/2020 1 1 Encounter Details Date Type Department Care Team Description 01/22/2019 Office Visit Neha Timothy Smith MD [address] [place] [id number] Chronic systolic congestive heart failur e (H) (Primary Dx); [facility] Elda Johnson APRN COMPUTER SYSTEMS MANAGER [address] [place] [id number] Persistent atrial fibrillation (H) [facility] [address] [facility] [address] [place] [address] Social History Tobacco Use Types Packs/Day Years Used Date Never Smoker Smokeless Tobacco: Never Used Alcohol Use Standard Drinks/Week Comments No 0 (1 standard drink = 0.6 oz pure alcoho l) Sex Assigned at Date Recorded Not on file documented as of this encounter Last Filed Vital Signs Vital Sign Reading Time Taken Comments Blood Pressure 118/70 01/22/2019 9:44 AM CDT Pulse 76 01/22/2019 9:44 AM CDT Temperature - - Respiratory Rate - - Oxygen Saturation - - Inhaled Oxygen Concentration - - Weight 137.3 kg (302 lb 11.2 oz) 01/22/2019 9:44 AM CDT Height 180.3 cm (5' 11) 01/22/2019 9:44 AM CDT Body Mass Index 42.22 01/22/2019 9:44 AM CDT documented in this encounter Progress Notes Elda Johnson APRN COMPUTER SYSTEMS MANAGER - 01/22/2019 9:30 AM CDT HPI: Haris Villa is a 78 year old male who presents for follow up regarding his fluid overload and medication changes. He is a patient of Dr. Smith. His medical history includes: 1.?Atrial flutter s/p CTI ablation 01/[address] Smith 2.?Persistent atrial fibrillation, initially on amiodarone therapy. ??He underwent DC cardioversion 05/2018 which was only briefly successful and amiodarone. He has been in persistent atrial fibrillation since 07/2018. Anticoagulation with Eliquis??for CHADSVASc of 4 (diabetes, CAD, age++) 3.?Sinus node dysfunction??s/p dual-chamber [employer] pacemaker 01/2016. 4.?Coronary disease??status post 4v CABG 1986. Thought to be VG -OM, VG-RCA, VG-LAD and VG-D at that time. Angiogram 01/2016 showed patent VGs 5.?Cardiomyopathy, 6. 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 ??QRS duration was 180 ms (paced) Device interrogation??11/14/18 showed atrial fibrillation with controlled ventricular response. ??He had 20 episodes of rapid ventricular response between 05/2018 and 10/17/2018. device check (11/2018) shows 0% A Pacing and 71% V??Pacing with an underlying rhythm of A. fib with Vpacing. ??100% atrial fibrillation. Echocardiogram??06/2018 showed an EF of 45-50% with mild to moderate concentric left ventricular hypertrophy. ??There was no significant valvular abnormalities ECHO (11/18/2018) revealed EF 39-44% (patient declined contrast), mild global hypokinesis of the leftventricle, moderate to severe inferior and inferolateral wall hypokinesis, mildly decreased right ventricle systolic function. Moderate- severe by atrial enlargement, IVC dilated. He saw Dr. Smith 03/2018 with increasing edema, fatigue and shortness of breath. His diuretics were adjusted and at that time he declined a coronary angiogram. In 07/[address] Smith and was doing better with only minimal fatigue and dyspnea his EF at that time was 45-50%. In 11/2018 he saw his PCP for increased bilateral lower extremity edema. His creatinine at that time was 1.4 and his weight was 317 pounds. His Lasix was increased to 40 mg twice daily. On 11/15/18 he saw HANK Jacobo, with increased lower extremity edema and shortness of breath, significant decrease in exercise tolerance with no significant improvement with the increase of diuretic.Patient did not feel this was related to his coronary artery disease but did admit to increased sodium in his diet. At that time, an echo and repeat BMP was recommended and there was a discussion to proceed with a stress test versus a coronary angiogram but the patient declined. He again seen in clinic with not much improvement in LE edema or symptoms of GALLARDO. His lasix 40 mg twice daily was changed to torsemide 20 mg twice daily and was asked to return in 1 week for follow up but did not return. Again he declined further ischemic work up. Pt elected to follow up via phone calls vs the recommended clinic visit. His creatinine was elevatedto 2.2 and his torsemide was decreased to 20 mg daily He then saw Dr. Smith, his weight decreased with torsemide. His metoprolol XL was decreased from 100 mgto 50 mg daily. Today he presents for repeat BMP and ECG to evaluate his HR rates with lower dose of metoprolol. Hiscreatinine was 1.6 today and his weight is up 6# at home and in the clinic. He does confess to intermittent non-adherence to a low sodium diet. His shortness of breath has improved slightly. He now hasadded stress as his is currently hospitalized at [facility] and he had to stop 1x walking down the hallway to her room. When he stops due to shortness of breath he denies associated symptoms of chest pain or chest pressure or chest tightness, dizziness, palpitations, nausea. For his LE edema he is wearing support stockings. His abdomen is morbidly obese and slightly firm. He is tolerating his Eliquis and denies bleeding, hematuria, hematochezia, and epistaxis. We did discuss his use ofCelebrex with Eliquis and I encouraged him to see his PCP or a pain clinic for an alternative. Presenting EKG atrial fibrillation with RBBB and ventricular paced with rate of 76 bpm. ASSESSMENT AND PLAN Cardiomyopathy. Patient's has had a low EF which has varied from 35-40% to 45-50% in the past. Most recent ECHO shows EF 40% with wall motion abnormalities which is new. Patient has refused further ischemia work up daryl said the last angiogram revealed patent bypass and no interventions were completed. His diuretics have been adjusted and unfortunately his creatinine has increased in the meantime. He has been non adherent to recommended office visit follow up and low salt diet. While on torsemide 20 mg BID, he lost 15# and has since regained 7# and complains of abdominal distension and bloating, GALLARDO, and LE edema. His creatinine was as high as 2.2 and today is currently 1.6. He is currently taking metoprolol succinate 50 mg daily. At this time his heart rate does not appearto be elevated per ECG and he is not complaining of palpitations. Regarding optimal medication he is not on an AMINTA inhibitor which I believe was discontinued on 05/21/18 due to elevated creatinine of 2. A referral to [facility] clinic was recommended today for HF and medication optimization. He is agreeable to go. Will increase torsemide to 20 mg twice daily for 3 days and return to torsemide 20 mg daily. Follow up with BMP in 1-2 weeks. ?? Atrial fibrillation. Since 2018, he has been chronic atrial fibrillation after not maintaining sinus rhythm while on amiodarone. His metoprolol was decreased from 100 mg to 50 mg at last office visit. Today's ECG reveals HR of 76bpm and appears to be atrial fibrillation with intermittent pacing but the ECG is of poor quality and was over read by Dr Smith Past device checks revealed overall controlled atrial fibrillation. Prior to the CORE appointment will have patient send in a remote to assess for HR control. He is taking Eliquis 5 mg twice daily for CHADS VASC 5 (HTN, HF, age++, CAD). He is currently takingCelebrex for back pain. Recommended follow up with his PCP/pain clinic to discuss alternative pain medication ?? Coronary artery disease. Patient had a CABG x 4 in 1983. He had an angiogram in 2016 which revealed patent bypass grafts. Over the course of the past year patient has had a decrease in exercise tolerance. He can no longer walka block without significant shortness of breath. And a repeat echo was performed revealed new wall motion abnormalities. Stress tests have been recommended patient has declined as past angiogram revealed non flowing limiting lesions. He will continue on metoprolol succinate 50 mg daily, pravastatin, fenofibrate and he has nitroglycerin as needed. Recommendations ?? Increase torsemide to 20 mg twice daily for 3 days. Then return to 20 mg daily ?? Follow up BMP in 1 week ?? Recommendation to establish care in the [facility] clinic ?? Follow up with Dr. Smith in 3 months ?? Send remote transmission prior to CORE visit ?? Follow up with PCP to discuss alternatives to Celebrex ?? Continue to weigh self daily, wear compression stockings, and follow a low sodium diet ?? See PCP for alternative pain medicine for Celebrex Patient expresses understanding and agreement with the plan. ?? I appreciate the chance to help with Haris Juan Miguel Villa Please let me know if you have any questions or concerns. Elda Johnson APRN, COMPUTER SYSTEMS MANAGER This note was completed in part using [employer] voice recognition software. Although reviewed after completion, some word and grammatical errors may occur. Orders Placed This Encounter Procedures ??? Basic metabolic panel ??? [facility] ??? Follow-Up with Learning Facilitator ??? EKG 12-lead complete w/read - Clinics (performed today) No orders of the defined types were placed in this encounter. There are no discontinued medications. Encounter Diagnoses Name Primary? Persistent atrial fibrillation (H) ??? Chronic systolic congestive heart failure (H) Yes CURRENT MEDICATIONS: Current Outpatient Medications [...] for chest pain 25 tablet 3 ??? PANTOPRAZOLE SODIUM PO Take 40 mg by mouth every morning (before breakfast). ??? pravastatin (PRAVACHOL) 80 MG tablet Take 80 mg by mouth At Bedtime ??? tamsulosin (FLOMAX) 0.4 MG capsule Take 1 capsule (0.4 mg) by mouth daily 90 capsule 4 ??? torsemide (DEMADEX) 20 MG tablet Take 1 tablet (20 mg) by mouth daily 90 tablet 3 ??? terazosin (HYTRIN) 5 MG [...] on phone: None Gets together: None Attends jain service: None Active member of club or [...] Narrative ??? None Review of Systems: Skin: Eyes: Positive for glasses ENT: Negative Respiratory: Positive for CPAP;sleep apnea;dyspnea on exertion Cardiovascular: edema;Positive for Physical Exam: Vitals: BP 118/70 (BP Location: Right arm, Patient Position: Sitting, Cuff Size: Adult Large) Pulse 76 Ht 1.803 m (5' 11) Wt 137.3 kg (302 lb 11.2 oz) BMI 42.22 kg/m?? Constitutional: cooperative, alert and oriented, well developed, well nourished, in no acute distress morbidly obese uses a walker Skin: warm and dry to the touch Head: normocephalic, no masses or lesions Eyes: pupils equal and round wear eye glasses ENT: no pallor or cyanosis Neck: JVP 10-12 JVP difficult to assess due to body habitus however appears to be elevated slightly above chin level Chest: clear to auscultation Cardiac: irregularly irregular rhythm Abdomen: abdomen soft obese distended and firm Vascular: pulses full and equal right radial artery;2+ left radial artery;2+ Extremities and Back: no deformities, clubbing, cyanosis, erythema observed wearin compression stockings Neurological: no gross motor deficits Recent Lab Results: LIPID RESULTS: Lab Results Component Value Date CHOL 155 02/03/2016 HDL 31 (L) 02/03/2016 LDL 86 02/03/2016 TRIG 190 (H) 02/03/2016 CHOLHDLRATIO 5.0 04/25/2004 LIVER ENZYME RESULTS: Lab Results Component Value Date AST 22 07/04/2018 ALT 22 07/04/2018 CBC RESULTS: Lab Results Component Value Date WBC 7.8 07/04/2018 RBC 4.35 (L) 07/04/2018 HGB 13.9 07/04/2018 HCT 43.3 07/04/2018 MCV 100 07/04/2018 MCH 32.0 07/04/2018 MCHC 32.1 07/04/2018 RDW 15.2 (H) 07/04/2018 PLT 242 07/04/2018 BMP RESULTS: Lab Results Component Value Date NA 140 01/22/2019 POTASSIUM 4.1 01/22/2019 CHLORIDE 105 01/22/2019 CO2 31 01/22/2019 ANIONGAP 4 01/22/2019 GLC 102 (H) 01/22/2019 BUN 37 (H) 01/22/2019 CR 1.63 (H) 01/22/2019 GFRESTIMATED 39 (L) 01/22/2019 GFRESTBLACK 45 (L) 01/22/2019 [place] 9.7 01/22/2019 A1C RESULTS: Lab Results Component Value Date A1C 9.0 (H) 02/03/2016 INR RESULTS: Lab Results Component Value Date INR 1.25 (H) 07/04/2018 INR 1.00 02/04/2016 CC Timothy Smith MD [address] [place] [id number] documented in this encounter Plan of Treatment Upcoming Encounters Date Type Specialty Care Team Description 06/26/2022 Ancillary Procedure Cardiology Seng Canchola MD [address] [place] [id number] (Wo rk) 08/16/2022 Ancillary Procedure Cardiology Timothy Smith MD [address] [place] [id number] (Wo rk) 08/16/2022 Office Visit Cardiology Timothy Smith MD [address] [place] [id number] (Wo rk) Scheduled Referrals Name Type Priority Associated Diagnoses Order S Critical access hospital Clinic Referral Routine Chronic systolic Expected: congestive heart 01/29/2019 failure (H) (Approximate), Expires: 01/23/2020 Follow-Up with Referral Routine Persistent atrial Expected : Learning Facilitator fibrillation (H) 04/23/2019 Chronic systolic (Approximat e), congestive heart Expires: failure (H) 01/23/2020 documented as of this encounter Procedures Procedure Name Priority Date/Time Associated Diagnosis Comme nts EKG 12-LEAD Routine 01/22/2019 3:09 PM Persistent atrial Resu lts for this COMPLETE W/READ - CDT fibrillation (H) proced ure are in CLINICS the results section. documented in this encounter Results (ABNORMAL) Basic metabolic panel (02/03/2019 11:17 AM CDT) Analysis Performed At Patho logist Time Signature Sodium 140 133 - 144 02/03/2019 [place] mmol/L 12:07 PM [facility] Potassium 4.1 3.4 - 5.3 02/03/2019 [facility] mmol/L 12:07 PM [facility] Chloride 104 94 - 109 02/03/2019 [place] mmol/L 12:07 PM [facility] Carbon Dioxide 30 20 - 32 02/03/2019 [place] mmol/L 12:15 PM [facility] Anion Gap 6 3 - 14 02/03/2019 [place] mmol/L 12:15 PM [facility] Glucose 95 70 - 99 02/03/2019 [place] mg/dL 12:15 PM [facility] Urea Nitrogen 39 (H) 7 - 30 02/03/2019 [place] mg/dL 12:15 PM [facility] Creatinine 1.64 (H) 0.66 - 02/03/2019 [facility] 1.25 mg/dL 12:15 PM [facility] GFR Estimate 39 (L) >60 02/03/2019 [place] mL/min/{1. 12:15 PM [facility] 73_m2} HOSPITAL Comment: Non GFR Calc Starting 09/17/2018, serum creatinine ba sed estimated GFR (eGFR) will be calculated using the Chronic Kidney Dise ase Epidemiology Collaboration (CKD-EPI) equation. GFR Estimate If 45 (L) >60 mL/min/{1.73_m2} 02[facility]03[facility]2019 [facility] Comment: GFR Calc Starting 09/17/2018, serum creatinine ba sed estimated GFR (eGFR) will be calculated using the Chronic Kidney Dise ase Epidemiology Collaboration (CKD-EPI) equation. Calcium 9.6 8.5 - 10.1 mg/dL 02/03/2019 12:15 PM CDT [facility] Specimen Anatomical Collection Method Collection Time Receive d Time (Source) Location / / Volume Laterality Blood specimen 02/03/2019 11:17 9 (specimen) AM CDT 11:22 AM CDT Elda Johnson APRN, CNP LAB - BLOOD ORDERABL ES Performing Organization Address City/State/ZIP Code Phon e Number [place] [address] [address] [place], [place] [address] [phone] [place] [address] [phone] EKG 12-lead complete w/read - Clinics (performed today) (01/22/2019 3:09 PM CDT) Narrative This result has an attachment that is no t available. Elda Johnson APRN, CNP ECG ORDERABLES documented in this encounter Visit Diagnoses Diagnosis Chronic systolic congestive heart failur e (H) - Primary Chronic systolic heart failure Persistent atrial fibrillation (H) Atrial fibrillation documented in this encounter Care Teams Election Supervisor Relationship Specialty Start Date End Date Slava Hernandez PA-C PCP - General Physician Certified Tumor Registrar 07/02/18 06/29/21 [facility] [address] [place] [address] documented as of this encounter
--- OUTSIDE RECORDS SUMMARY | 2022-06-22 08:54 | XMS_ITS | Encounter Summary ---
:1940 Author Organization [place] Address [address] [place] [address] Care Team Providers Name Role Phone Slava Hernandez PA-C Primary Care Provider Reason for Visit CV Testing (Routine) - Closed Specialty Diagnoses / Procedures Referred By Contact Refer red To Contact Diagnoses Cardiac pacemaker in situ [facility] Cv Cardiac Services Procedures Cardiac Device Check - Remote [address] [facility] [address] [place] [phone] Referral ID Status Reason Start Date Expiration Date Visits Requ ested Visits Authorized [id number] Closed 01/23/2019 01/23/2020 1 1 Encounter Details Date Type Department Care Team Description 06/25/2019 Ancillary Procedure [facility] Basil Guadalupe ardiac pacemaker in [facility] MD [place] situ Heart Care [address] [facility] [address] [id number] [facility] [address] [place] [address] [place] [phone] (Work) [phone] Social History Tobacco Use Types Packs/Day Years Used Date Never Smoker Smokeless Tobacco: Never Used Alcohol Use Standard Drinks/Week Comments No 0 (1 standard drink = 0.6 oz pure alcoho l) Sex Assigned at Date Recorded Not on file documented as of this encounter Plan of Treatment Upcoming Encounters Date Type Specialty Care Team Description 06/26/2022 Ancillary Procedure Cardiology Seng Canchola MD [address] [facility] [address] [place] [address] (Wo rk) 08/16/2022 Ancillary Procedure Cardiology Timothy Smith MD [address] [place] [phone] (Wo rk) 08/16/2022 Office Visit Cardiology Timothy Smith MD [address] [place] [phone] (Wo rk) documented as of this encounter Procedures Procedure Name Priority Date/Time Associated Comments Diagnosis INTERROGATION DEVICE Routine 06/25/2019 8:54 AM Cardiac pacema ker Results for this EVAL REMOTE PACER UP CDT in situ procedu re are in TO 90 DAYS the results section. documented in this encounter Results INTERROGATION DEVICE EVAL REMOTE PACER UP TO 90 DAYS (06/25/2019 8:54 AM CDT) Component Value Ref Test Analysis Performed Pathologis t Range Method Time At Signature Date Time [id number] [employer] Interrogation Session Implantable [place] [employer] Pulse Generator Floor Covering Printer Assistant Implantable L121 ESSENTIO EL [employer]TRONIC Pulse Generator Model Implantable [id number] MEDTRONIC Pulse Generator Serial Number Type Remote MEDTRONIC Interrogation Session Clinic Name [place] [facility]IC Implantable Pacemaker MEDTRONIC Pulse Generator Type Implantable [id number] MEDTRONIC Pulse Generator Implant Date Implantable Lead [facility] RAUL Floor Covering Printer Assistant Implantable Lead 2087TC Tendril MEDTRONI C Model STS Implantable Lead [id number] MEDTRONIC Serial Number Implantable Lead [id number] MEDTRONIC Implant Date Implantable Lead Bipolar Lead [employer]IC Polarity Type Implantable Lead UNKNOWN [employer]ONIC Location Detail 1 Implantable Lead Right Atrium MEDTRONIC Location Implantable Lead [facility] [employer] RAUL Floor Covering Printer Assistant Implantable Lead 2087TC Tendril MEDTRONI C Model STS Implantable Lead [id number] [employer]ONIC Serial Number Implantable Lead [id number] MEDTRONIC [...] MEDTRONIC Pacing Threshold Pulse Width Battery Date [id number] [employer]TRONIC Time of Measurements Battery Status Beginning of MEDTRONIC Service Battery 108 mo MEDTRONIC Remaining Longevity Battery 100 % MEDTRONIC Remaining Percentage Brandon Statistic [id number] MEDTRONIC Date Time Start Brandon Statistic [id number] MEDTRONIC Date Time End Brandon Statistic 0 % MEDTRONIC RA Percent Paced Brandon Statistic 62 % [employer]TRONIC RV Percent Paced Atrial Tachy [id number] MEDTRONIC Statistic Date Time Start Atrial Tachy [id number] MEDTRONIC Statistic Date Time End Atrial Tachy 100 % MEDTRONIC Statistic AT/AF [place] Percent Episode 5 MEDTRONIC Statistic Recent Count [...] [place] MEDTRONIC Statistic Vendor Type Category Episode [id number] MEDTRONIC Statistic Recent Date Time Start Episode [id number] MEDTRONIC Statistic Recent Date Time End Episode [id number] MEDTRONIC Statistic Recent Date Time Start Episode [id number] MEDTRONIC Statistic Recent Date Time End Episode [id number] MEDTRONIC Statistic Recent Date Time Start Episode [id number] MEDTRONIC Statistic Recent Date Time End Episode [id number] MEDTRONIC Statistic Recent Date Time Start Episode [id number] MEDTRONIC Statistic Recent Date Time End Episode APM-92 MEDTRONIC Identifier Episode Type Periodic EGM MEDTRONIC Category Episode Date [id number] MEDTRONIC Time Episode [id number]-[id number] MEDTRONIC Identifier Episode Type Other MEDTRONIC Category Episode Date [id number] MEDTRONIC Time Episode ATR-6510 MEDTRONIC Identifier Episode Type AT/AF MEDTRONIC Category Episode Date [id number] MEDTRONIC Time Episode V-1530 MEDTRONIC Identifier Episode Type [place] MEDTRONIC Category Episode Date [id number] MEDTRONIC Time Episode Duration 15 s MEDTRONIC Episode V-1529 MEDTRONIC Identifier Episode Type VT MEDTRONIC Category Episode Date [id number] MEDTRONIC Time Episode Duration 14 s MEDTRONIC Episode V-1528 MEDTRONIC Identifier Episode Type VT MEDTRONIC Category Episode Date [id number] MEDTRONIC Time Episode Duration 15 s MEDTRONIC Episode V-1527 MEDTRONIC Identifier Episode Type VT MEDTRONIC Category Episode Date [id number] MEDTRONIC Time Episode Duration 14 s MEDTRONIC Episode V-1526 MEDTRONIC Identifier Episode Type VT MEDTRONIC Category Episode Date [id number] MEDTRONIC Time Episode Duration 14 s MEDTRONIC Episode V-1525 MEDTRONIC Identifier Episode Type VT MEDTRONIC Category Episode Date [id number] MEDTRONIC Time Episode Duration 15 s MEDTRONIC Episode V-1524 MEDTRONIC Identifier Episode Type VT MEDTRONIC Category Episode Date [id number] MEDTRONIC Time Episode Duration 40 s MEDTRONIC Episode V-1523 MEDTRONIC Identifier Episode Type VT MEDTRONIC Category Episode Date [id number] MEDTRONIC Time Episode Duration 16 s MEDTRONIC Episode V-1522 MEDTRONIC Identifier Episode Type VT MEDTRONIC Category Episode Date [id number] MEDTRONIC Time Episode Duration 15 s MEDTRONIC Episode V-1521 MEDTRONIC Identifier Episode Type VT MEDTRONIC Category Episode Date [id number] MEDTRONIC Time Episode Duration 14 s MEDTRONIC Episode ATR-6509 MEDTRONIC Identifier Episode Type AT/AF MEDTRONIC Category Episode Date [id number] MEDTRONIC Time Episode Duration 1,020,750 s MEDTRONIC Episode ATR-6508 MEDTRONIC Identifier Episode Type AT/AF MEDTRONIC Category Episode Date [id number] [employer]IC Time Episode Duration 2,246,835 s MEDTRONIC Episode ATR-6507 MEDTRONIC Identifier Episode Type AT/AF MEDTRONIC Category Episode Date [id number] MEDTRONIC Time Episode Duration 30 s MEDTRONIC Anatomical Region Laterality Modality Other Specimen (Source) Anatomical Collection Method Collection Time Re ceived Time Location / / Volume Laterality 06/25/2019 5:40 AM CDT Narrative 07/01/2019 8:21 AM CDT [employer] L121 Essentio EL (D) Remote PPM Device CheckAP: 0%WIRE INSULATOR: 62%Mode: DDDRPresenting Rhythm: Afib wit h WIRE INSULATOR & VSHeart Rate: adequate heart rates per [...] answer, le ft message with results. Darius MCDOWELLTI have reviewed and interpreted the d evice interrogation, settings, programming and nurse's summary. The dev ice is functioning within normal device parameters. I agree with the curr ent findings, assessment and plan. Basil Guadalupe MD CV CARDIAC SERVICES ORDERABL ES documented in this encounter Visit Diagnoses Diagnosis Cardiac pacemaker in situ documented in this encounter Care Teams Engineering Professor Relationship Specialty Start Date End Date Slava Hernandez PA-C PCP - General Physician Lockstitch Zipper Setter 07/02/18 06/29/[address] [address] documented as of this encounter
--- OUTSIDE RECORDS SUMMARY | 2022-06-22 08:54 | XMS_ITS | Encounter Summary ---
:1940 Author Organization [place] Address [address] [facility] [place] [address] Care Team Providers Name Role Phone Slava Hernandez PA-C Primary Care Provider Encounter Details Date Type Department Care Team Description 01/22/2019 Travel Social History Tobacco Use Types Packs/Day [...] [address] [place] [place] [phone] (Wo rk) 08/16/2022 Ancillary Procedure Cardiology Timothy Smith MD [address] [place] [phone] (Wo rk) 08/16/2022 Office Visit Cardiology Timothy Smith MD [address] [place] [phone] (Wo rk) documented as of this encounter Visit Diagnoses Not on filedocumented in this encounter Care Teams Restaurant Culinary Manager Relationship Specialty Start Date End Date Slava Hernandez PA-C PCP - General Physician Parts Counter Representative 07/02/18 06/29/21 [facility] [address] [place] [address] [place] [address] documented as of this encounter
--- OUTSIDE RECORDS SUMMARY | 2022-06-22 08:54 | XMS_ITS | Encounter Summary ---
:1940 Author Organization [place] Address [address] [place] [address] Care Team Providers Name Role Phone Slava Hernandez PA-C Primary Care Provider Reason for Visit Reason Onset Date Comments Refill Request 02/24/2020 SL NTG Encounter Details Date Type Department Care Team Description 02/24/2020 Refill [facility] Heart Tammy Montenegro Refill Request (SL NTG) Clinic Patt Torres PA-C [address] [facility] [address] [facility] [address] [place] [address] [place] [address] (Wo rk) Social History Tobacco Use Types [...] 06/26/2022 Ancillary Procedure Cardiology Seng Canchola MD [address] [place] [place] [address] (Wo rk) 08/16/2022 Ancillary Procedure Cardiology Timothy Smith MD [address] [place] [address] (Wo rk) 08/16/2022 Office Visit Cardiology Timothy Smith MD [address] [place] [address] (Wo rk) documented as of this encounter Visit Diagnoses Diagnosis 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
--- OUTSIDE RECORDS SUMMARY | 2022-06-22 08:54 | XMS_ITS | Encounter Summary ---
:1940 Author Organization [place] Address [address] [facility] [place] [address] Care Team Providers Name Role Phone Slava Hernandez PA-C Primary Care Provider Encounter Details Date Type Department Care Team Description 10/15/2019 Travel Social History Tobacco Use Types Packs/Day [...] [address] [place] [phone] (Wo rk) 08/16/2022 Ancillary Procedure Cardiology Timothy Smith MD [address] [place] [phone] (Wo rk) 08/16/2022 Office Visit Cardiology Timothy Smith MD [address] [place] [phone] (Wo rk) documented as of this encounter Visit Diagnoses Not on filedocumented in this encounter Care Teams Tube Coater Relationship Specialty Start Date End Date Slava Hernandez PA-C PCP - General Physician Gold Frame Assembler 07/02/18 06/29/21 [facility] [address] [place] [address] [place] [address] documented as of this encounter
--- OUTSIDE RECORDS SUMMARY | 2022-06-22 08:54 | XMS_ITS | Encounter Summary ---
:1940 Author Organization [place] Address [address] [place] [address] Care Team Providers Name Role Phone Slava Hernandez PA-C Primary Care Provider Reason for Referral CV Testing (Routine) - Closed Specialty Diagnoses / Procedures Referred By Contact Refer red To Contact Diagnoses Cardiac pacemaker in situ [facility] Cv Cardiac Services Procedures Cardiac Device Check - In Clinic [address] [facility] [address] [place] [phone] Referral ID Status Reason Start Date Expiration Date Visits Requ ested Visits Authorized [id number] Closed 06/25/2019 06/24/2020 1 1 Encounter Details Date Type Department Care Team Description 06/25/[address] [facility] Sary Riojas Cardi ac pacemaker in [facility] situ ([facility]) Heart Care [address] [facility] [address] [place] [phone] [...] Ancillary Procedure Cardiology Seng Canchola MD [address] [facility] [address] [place] [address] (Wo rk) 08/16/2022 Ancillary Procedure Cardiology Timothy Smith MD [address] [place] [phone] (Wo rk) 08/16/2022 Office Visit Cardiology Timothy Smith MD [address] [place] [phone] (Wo rk) documented as of this encounter Results PM DEVICE PROGRAMMING EVAL, DUAL LEAD PACER (10/15/2019 9:24 AM INSTRUCTION LIBRARIAN) Component Value Ref Test Analysis Performed [employer]Th[employer]ful Media t Range Method Time At Signature Date Time MEDTRONIC Interrogation Session Implantable [employer]ONIC Pulse Generator Manager Room Implantable L121 ESSENTIO EL MEDTRONIC Pulse Generator Model Implantable [id number] MEDTRONIC Pulse Generator Serial Number Type In Clinic MEDTRONIC Interrogation Session Clinic Name [facility] MEDTRONIC Implantable Pacemaker MEDTRONIC Pulse Generator Type Implantable [id number] MEDTRONIC Pulse Generator Implant Date Implantable Lead [facility] MED[facility]O RAUL Manager Room Implantable Lead 2088TC Tendril MEDTRONI C Model STS Implantable Lead [id number] MEDTRONIC Serial Number Implantable Lead [id number] MEDTRONIC Implant Date Implantable Lead Bipolar Lead [employer]TRONIC Polarity Type Implantable Lead UNKNOWN MEDTRONIC Location Detail 1 Implantable Lead Right Atrium MEDTRONIC Location Implantable Lead [facility] MEDTRO RAUL Manager Room Implantable Lead 2088TC Tendril MEDTRONI C Model STS Implantable Lead [id number] [employer]TRONIC Serial Number Implantable Lead [id number] MEDTRONIC [...] NSVT MEDTRONIC Statistic Vendor Type Category Episode [id number] MEDTRONIC Statistic Total Date Time End Episode 97 MEDTRONIC Statistic Recent Count Episode [place] MEDTRONIC Statistic Type Category Episode NSVT MEDTRONIC Statistic Vendor Type Category Episode [id number] MEDTRONIC Statistic Recent Date Time Start Episode [id number] MEDTRONIC Statistic Recent Date Time End Anatomical Region Laterality Modality Other Specimen (Source) Anatomical Collection Method Collection Time Re ceived Time Location / / Volume Laterality 10/15/2019 3:46 PM INSTRUCTION LIBRARIAN Narrative 10/16/2019 10:41 AM INSTRUCTION LIBRARIAN [employer] Accolade (D) Pacemaker Device Check AP: <1 ?% ?? DOUBLER HELPER: 61 % ?? Mode: VVIR 60-130 (was [...] Will inform Dr. Smith of NSVT episode. RORO, RN ?? I have reviewed and interpreted [...] situ documented in this encounter Care Teams Gluing Pressman Relationship Specialty Start Date End Date Slava Hernandez PA-C PCP - General Physician Cigarette Seller 07/02/18 06/29/[address] [address] documented as of this encounter
--- OUTSIDE RECORDS SUMMARY | 2022-06-22 08:55 | XMS_ITS | Encounter Summary ---
:1940 Author Organization [place] Address [address] [facility] [address] Care Team Providers Name Role Phone Slava Hernandez PA-C Primary Care Provider Encounter Details Date Type Department Care Team Description 10/23/2018 Travel Social History Tobacco Use Types Packs/Day [...] [address] [place] [phone] (Wo rk) 08/16/2022 Ancillary Procedure Cardiology Timothy Smith MD [address] [place] [phone] (Wo rk) 08/16/2022 Office Visit Cardiology Timothy Smith MD [address] [place] [phone] (Wo rk) documented as of this encounter Visit Diagnoses Not on filedocumented in this encounter Care Teams Instructional Technologist Relationship Specialty Start Date End Date Slava Hernandez PA-C PCP - General Physician Bakery Team Leader 07/02/18 06/29/21 [facility] [address] [place] [address] [place] [address] documented as of this encounter
--- OUTSIDE RECORDS SUMMARY | 2022-06-22 08:55 | XMS_ITS | Encounter Summary ---
:1940 Author Organization [place] Address [address] [place] [address] Care Team Providers Name Role Phone Slava Hernandez PA-C Primary Care Provider Reason for Visit Reason Onset Date Comments Refill Request 01/10/2019 torsemide Encounter Details Date Type Department Care Team Description 01/10/2019 Refill [facility] Heart Temitope Tamayo, Refill Request Clinic Shilpi EL (torsemide) [address] [facility] [address] [place] [phone] Social History Tobacco Use Types Packs/Day Years Used Date Never Smoker Smokeless Tobacco: Never Used Alcohol Use Standard Drinks/Week Comments No 0 (1 standard drink = 0.6 oz pure alcoho l) Sex Assigned at Date Recorded Not on file documented as of this encounter Miscellaneous Notes Telephone Encounter - Temitope Tamayo RN - 01/10/2019 9:44 AM CDT Patient called requesting that refills be 3 months versus 30 days. Sent script to [facility] per request. SIENNA Okeefe documented in this encounter Plan of Treatment Upcoming Encounters Date Type Specialty Care Team Description 06/26/2022 Ancillary Procedure Cardiology Seng Canchola MD [address] [facility] [address] [place] [address] (Wo rk) 08/16/2022 Ancillary Procedure Cardiology Timothy Smith MD [address] [place] [address] (Wo rk) 08/16/2022 Office Visit Cardiology Timothy Smith MD [address] [place] [address] (Wo rk) documented as of this encounter Visit Diagnoses Diagnosis Localized edema Edema documented in this encounter Care Teams Liner Man Relationship Specialty Start Date End Date Slava Hernandez PA-C PCP - General Physician Department Coordinator 07/02/18 06/29/21 [facility] [address] [place] [address] documented as of this encounter
--- OUTSIDE RECORDS SUMMARY | 2022-06-22 08:55 | XMS_ITS | Encounter Summary ---
:1940 Author Organization [place] Address [address] [place] [address] Care Team Providers Name Role Phone Slava Hernandez PA-C Primary Care Provider Encounter Details Date Type Department Care Team Description 11/18/2018 Documentation Only [facility] Tammy Montenegro Heart Clinic P[place] Torres PA-C [address] [facility] [address] [facility] [address] [place] [address] [place] 634295 (Wo rk) Social History Tobacco Use Types Packs/Day Years Used Date Never Smoker Smokeless Tobacco: Never Used Alcohol Use Standard Drinks/Week Comments No 0 (1 standard drink = 0.6 oz pure alcoho l) Sex Assigned at Date Recorded Not on file documented as of this encounter Progress Notes Tammy Montenegro PA-C - 11/18/2018 1:41 PM CST Pls let pt know that blood work obtained today looked good! He's been on Lasix 40 mg BID since 11/13. When I saw him 11/15, he was slightly better from a fluid overload/SOB standpoint, but it had been <48 hours. * Continue Lasix 40 mg BID (or 80 every day) * How is breathing? Swelling? Weight? * Plan is to see me tomorrow but reschedule to if it's snowing tomorrow. ER TUBING BACKER Temitope Tamayo RN - 11/18/2018 1:41 PM CST Message left for patient to review lab work and recommendations per HANK Jacobo. Awaiting return call. SIENNA Okeefe ER TUBING BACKER Temitope Tamayo RN - 11/18/2018 1:41 PM CST Spoke with patient regarding results of lab work done 11/18. Patient to continue with lasix 40mg po bid or 80mg every day. Patient reports breathing has improved. Legs continue to have swelling. Patient reports he is starting to wrap them. Weight is down 5 pounds. Patient requesting to move appointment to later date. Reviewed with Saadia. She wanted patient to follow up next week. Patient requesting [facility]. Appointment scheduled for 11/27 with Elda Johnson. Instructed patient to call clinic if he had any questions or concerns. Patient provided verbal understanding of above. SIENNA Okeefe ER TUBING BACKER documented in this encounter Plan of Treatment Upcoming Encounters Date Type Specialty Care Team Description 06/26/2022 Ancillary Procedure Cardiology Seng Canchola MD [address] [place] [phone] (Wo rk) 08/16/2022 Ancillary Procedure Cardiology Timothy Smith MD [address] [place] [address] (Wo rk) 08/16/2022 Office Visit Cardiology Timothy Smith MD [address] [place] [phone] (Wo rk) documented as of this encounter Visit Diagnoses Not on filedocumented in this encounter Care Teams Sleeve Ironer Relationship Specialty Start Date End Date Slava Hernandez PA-C PCP - General Physician Mitten Sewer 07/02/18 06/29/21 [facility] [address] [place], [place] [id number] documented as of this encounter
--- OUTSIDE RECORDS SUMMARY | 2022-06-22 08:55 | XMS_ITS | Encounter Summary ---
:1940 Author Organization Many Address [address] [place] [address] Care Team Providers Name Role Phone Slava Hernandez PA-C Primary Care Provider Reason for Referral - Closed Specialty Diagnoses / Procedures Referred By Contact Refer red To Contact Diagnoses Paroxysmal atrial fibrillation (H) Cardiomyopathy, unspecified type (H) Ischemic cardiomyopathy Tammy Glover PA-C [address] [place] [address] Referral ID Status Reason Start Date Expiration Date Visits Requ ested Visits Authorized [id number] Closed 11/15/2018 11/15/2019 1 1 TROLYSIST CV Testing (Routine) - Closed Specialty Diagnoses / Procedures Referred By Contact Refer red To Contact Cardiology Diagnoses Paroxysmal atrial fibrillation (H) Cardiomyopathy, unspecified type (H) Ischemic cardiomyopathy Tammy Glover Cv Cardiac Svc Rscc Procedures Echocardiogram Complete HC TTE W/DOPPLER, COMPLETE HC ECHO COMPLETE W DOPPLER W CONTRAST HC ECHO COMPLETE W DOPPLER W/O CONTRAST HC IV PUSH SINGLE, INITIAL SUBSTANCE HC US GUIDE FOR PERICARDIOCENTESIS HC ECHO MYOCARD BX MARIBEL Torres [id number] [employer] C INJECTION, PERFLUTREN LIPI D MICROSPHERES, PER ML HC STATISTIC IV PUSH SINGLE INITIAL SUBSTANCE [address] [place] [address] [place] [address] Phone: Fax: Referral ID Status Reason Start Date Expiration Date Visits Requ ested Visits Authorized [id number] Closed 11/15/2018 11/15/2019 1 1 TROLYSIST Reason for Visit Reason Comments Edema Fatigue Encounter Details Date Type Department Care Team Description 11/15/2018 Office Visit [facility] Tammy Glover Cardio myopathy, unspecified type (H) (Primary Dx); [facility] Patt Torres PA-C Paroxysmal atrial fibrillation (H); [address] SSS (sick sinus syndrome) (H); [facility] [address] Ischemic cardiomyopathy; [place] [phone] [place] [address] Coronary artery disease involving yocha dehe coronary artery of yocha dehe heart without angina pectoris [phone] (Wo rk) Social History Tobacco Use Types Packs/Day Years Used Date Never Smoker Smokeless Tobacco: Never Used Alcohol Use Standard Drinks/Week Comments No 0 (1 standard drink = 0.6 oz pure alcoho l) Sex Assigned at Date Recorded Not on file documented as of this encounter Last Filed Vital Signs Vital Sign Reading Time Taken Comments Blood Pressure 123/70 11/15/2018 1:00 PM ELECTROLYSIST Pulse 80 11/15/2018 1:00 PM ELECTROLYSIST Temperature - - Respiratory Rate - - Oxygen Saturation - - Inhaled Oxygen Concentration - - Weight 142.9 kg (315 lb) 11/15/2018 1:00 PM ELECTROLYSIST Height 180.3 cm (5' 11) 11/15/2018 1:00 PM ELECTROLYSIST Body Mass Index 43.93 11/15/2018 1:00 PM ELECTROLYSIST documented in this encounter Patient Instructions Patient InstructionsTammy Glover PA-C - 11/15/2018 1:10 PM ELECTROLYSIST 1. Reviewed increased swelling and shortness of breath x 2 weeks. May be due increased sodium intake(soup) in cold weather * Limit salt in diet * Use compression stockings/SOURAV bandages to try and squeeze fluid from the tissue in legs into the bloodstream so furosemide can work better *See us next week with echocardiogram and blood work ... A little too early to check blood work today as it's only been 1.5 days since furosemide adjusted * Weigh self every morning first thing!!! Write this down and bring in to next appt. At Dr. Torres 11/13 you were #317 and today at our office you were #315. Back in 07/2018, you were @ #295 2. Continue Lasix 40 mg twice daily (80 mg daily) 3. Sent Rx for nitroglycerin to use if chest discomfort does not improve with rest. 4. My nurses are Lacy/Pat: [phone] TROLYSIST documented in this encounter Progress Notes Tammy Glover PA-C - 11/15/2018 1:10 PM CST HPI: I had the pleasure of seeing Don when he came for concerns regarding fluid overload. He is a 78 [address] Smith for his history of: 1. Atrial flutter status post CTI ablation 01/[address] Smith 2. Persistent atrial fibrillation, initially on amiodarone therapy. He underwent DC cardioversion 05/2018 which was only briefly successful. Subsequently, a rate control/anticoagulation strategy was recommended and amiodarone was discontinued. Recent device interrogation shows that he's been in AFib 07/2018 3. Chronic anticoagulation with Eliquis for CHADSVASc of 4 (diabetes, CAD, age) 4. Sinus node dysfunction status post dual-chamber [employer] pacemaker 01/2016. He did not ever have an AV node ablation. 5. Coronary disease status post 4v CABG 1986. We believe he had a VG -OM, VG- RCA, VG-LAD and VG-D atthat time. Angiogram 01/2016 showed patent VGs! 6. 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 7. Obstructive sleep apnea, type 2 diabetes, obesity When Dr. Smith saw him 03/2018, he had been complaining of increasing edema, fatigue and shortness of breath, and his diuretic dose had been adjusted. He had declined coronary angiogram. On repeat evaluation 07/2018, he was doing better with just minimal fatigue and dyspnea. At that time, they reviewed anecho showing an EF of 45-50%. He comes today complaining of lower extremity edema and shortness of breath. He actually saw his primary, Dr. Hernandez, for this on 11/13 with concerns regarding increasing bilateral lower extremity edema x1 week, though notes to me today that this was likely more than 2 weeks since this started. With this, he has noted an increase in dyspnea, but denies orthopnea or PND. He remains compliant with CPAP therapy. At Dr. Hernandez's office, BMP was drawn (below) showing renal insufficiency with creatinine of 1.4. Hisweight was 317 pounds. His Lasix was increased to 40 mg BID. He states that since that time he does feel like his edema and dyspnea are may be a bit better, but notes only been 1/2 days since his diuretic increase. He notes that last Fall, he would work out at the gym for roughly 15 minutes, doing multiple different exercises. Now, he has to stop after just 2-3 minutes for fatigue, increased shortness of breath and chest tightness. This tightness he feels is related to not being able to breathe, and he does not think is related to coronary disease. He states that nothing like he what he had prior to his bypass surgery in the 80s. He has not taken sublingual nitroglycerin for this. The only thing he thinks he is done differently recently is that he has been eating more soup due tothe cold weather. EKG today, which I overread, showed intermittent [employer] @ 76 bpm with 2 PVCs of different morphology. Intrinsic beats showed a right bundle branch block morphology. QRS duration was 180 ms (paced) Device interrogation 11/14/18 showed atrial fibrillation with controlled ventricular response. He hadhad 20 episodes of rapid ventricular response between 05/2018 and 10/17/2018. Full device interrogation 08/27 shows 0% A Pacing and 41% V Pacing with an underlying rhythm of A. fib with V pacing. He had been in atrial fibrillation since 07/2018. Blood work 11/[address] Hernandez's office showed a sodium of 142, potassium 4.2, BUN 38 creatinine 1.43. Echocardiogram 06/2018 showed an EF of 45-50% with mild to moderate concentric left ventricular hypertrophy. There was no significant valvular abnormalities Assessment & Plan: 1. Fluid overload ?? Most recent echo 06/2018 with EF 45-50% ?? Since increasing Lasix 11/13/2018, just 2 days ago, he does think that things have improved, but still very early to tell ?? On exam, he continues to demonstrate at least 2+ pitting edema, hepatojugular reflux, JVD and very mild bibasilar crackles PLAN: ?? Continue Lasix 40 mg twice daily ?? Repeat BMP and echocardiogram early next week ?? See us back to review ?? Does not appear to be related to rapid atrial fibrillation as he has not had any rapid rates since October. Likely due to dietary indiscretion ?? Continue CPAP therapy ?? I have asked him to limit sodium in diet, put his feet up whenever possible and use Sourav bandages/compression stockings to help his lower extremity edema ?? Instructed to present to the emergency department with any significant worsening of symptoms 2. Atrial Fibrillation ?? As above, on rate control/AC strategy and device interrogation shows no rapid rates since 10/2018 ?? On Eliquis for CHADSVASc 4 and rate control with Metoprolol XL 100 mg daily ?? EKG as above PLAN: ?? Continue anticoagulation and metoprolol 3. Chest tightness ?? He states that he believes this is from his shortness of breath, and does not feel like what he had prior to his bypass surgery in the 1980s ?? Most recent angiogram in 2016 did show patent vein grafts, despite being over 30 years old ?? He has never had to take nitroglycerin and symptoms improve immediately when he stops ?? Blood pressure is under good control PLAN: ?? Discussed proceeding with stress test versus coronary angiography, but he does not want to proceed with either as he feels like his chest discomfort is more related to breathing ?? Agreed that we would start with continued diuresis and an echocardiogram ?? I have sent a new prescription in for nitroglycerin ?? Instructed to go to the emergency department should he get any significant change in symptomatology or discomfort that not improved with nitroglycerin Saadia Glover PA-C, MSPAS Orders Placed This Encounter Procedures ??? Basic metabolic panel ??? Follow-Up with Cardiac Advanced Practice Provider ??? EKG 12-lead complete w/read - Clinics (performed today) ??? Echocardiogram Complete Orders Placed This Encounter Medications ??? furosemide (LASIX) 40 MG tablet Sig: Take 1 tablet (40 mg) by mouth 2 times daily ??? nitroGLYcerin (NITROSTAT) 0.4 MG sublingual tablet Sig: Place 1 tablet (0.4 mg) under the tongue every 5 minutes as needed for chest pain Dispense: 25 tablet Refill: 3 Medications Discontinued During This Encounter Medication Reason ??? furosemide (LASIX) 40 MG tablet ??? nitroglycerin (NITROSTAT) 0.4 MG sublingual tablet Reorder Encounter Diagnoses Name Primary? Paroxysmal atrial fibrillation (H) Yes ??? Cardiomyopathy, unspecified type (H) ??? SSS (sick sinus syndrome) (H) ??? Ischemic cardiomyopathy ??? Coronary artery disease involving yocha dehe coronary artery of yocha dehe heart without angina pectoris CURRENT MEDICATIONS: Current Outpatient Medications Medication Sig Dispense Refill ??? acetaminophen (TYLENOL) 500 MG tablet Take 1-2 tablets (500-1,000 mg) by mouth every 8 hours as needed for mild pain (DO NOT FILL! For dosing only.) DO NOT FILL! For Dosing Only 1 tablet 0 ??? acetaminophen-codeine (TYLENOL #3) 300-30 MG per tablet Take 1-2 tablets by mouth every 4 hours as needed for moderate pain 10 tablet 0 ??? ACYCLOVIR 400 MG OR TABS 1 [...] ??? furosemide (LASIX) 40 MG tablet Take 1 tablet (40 mg) by mouth 2 times daily ??? GLIPIZIDE PO Take 5 mg by mouth 2 times daily (before meals) ??? metFORMIN (GLUCOPHAGE) 500 MG tablet Take 2 tablets (1,000 mg) by mouth 2 times daily (with meals) 60 tablet ??? metoprolol (TOPROL-XL) 100 MG 24 hr tablet Take 1 tablet (100 mg) by mouth daily 90 tablet 1 ??? nitroGLYcerin (NITROSTAT) 0.[address] 1 tablet (0.4 mg) under the tongue every 5 minutes as needed for chest pain 25 tablet 3 ??? PANTOPRAZOLE SODIUM PO Take 40 mg by mouth every morning (before breakfast). ??? pravastatin (PRAVACHOL) 80 MG tablet Take 80 mg by mouth At Bedtime ??? terazosin (HYTRIN) 5 MG capsule Take 1 capsule (5 mg) by mouth At Bedtime 90 capsule 3 ??? ondansetron (ZOFRAN ODT) 4 MG ODT tab Take 1 tablet (4 mg) by mouth every 8 hours as needed for nausea (Patient not taking: Reported on 11/15/2018) 10 tablet 0 ??? oxyCODONE IR (ROXICODONE) 5 MG tablet Take 1 tablet (5 mg) by mouth every 6 hours as needed for pain (Patient not taking: Reported on 10/23/2018) 12 tablet 0 ALLERGIES Allergies Allergen Reactions ??? No Known [...] education: None ??? Highest education level: None Social Needs ??? Financial resource strain: None ??? Food insecurity - worry: None ??? Food insecurity - inability: None ??? Transportation needs - medical: None ??? Transportation needs - non-medical: None Occupational History ??? None Tobacco Use ??? Smoking status: Never Smoker ??? Smokeless tobacco: Never Used Substance and Sexual Activity ??? Alcohol use: No ??? Drug use: No ??? Sexual activity: None Other Topics Concern ??? Parent/sibling w/ CABG, [place] or angioplasty before 65F 55M? No ??? [...] of Systems: Skin: Positive for nail changes Eyes: Positive for glasses ENT: Negative Respiratory: Positive for sleep apnea;CPAP;dyspnea on exertion;shortness of breath Cardiovascular: Negative for;palpitations;chest pain;dizziness;lightheadedness Positive for;edema Gastroenterology: Negative melena;hematochezia Genitourinary: Negative Musculoskeletal: Positive for arthritis;joint pain;nocturnal cramping Neurologic: Negative Psychiatric: Negative Heme/Lymph/Imm: Negative Endocrine: Positive for diabetes Physical Exam: Vitals: BP 123/70 Pulse 80 Ht 1.803 m (5' 11) Wt 142.9 kg (315 lb) BMI 43.93 kg/m?? Constitutional: cooperative obese uses a wheeled walker Skin: warm and dry to the touch Head: normocephalic, no masses or lesions Eyes: pupils equal and round wear eye glasses ENT: no pallor or cyanosis, dentition good Neck: JVP >12;hepatojugular reflux Chest: Bibasilar crackles Cardiac: irregularly irregular rhythm Abdomen: abdomen soft obese Vascular: pulses below the femoral arteries are diminished Extremities and Back: no deformities, clubbing, cyanosis, erythema observed Neurological: no gross motor deficits Recent Lab [...] RESULTS: Lab Results Component Value Date NA 139 07/04/2018 POTASSIUM 4.2 07/04/2018 CHLORIDE 102 07/04/2018 CO2 30 07/04/2018 ANIONGAP 7 07/04/2018 GLC 240 (H) 07/04/2018 BUN 37 (H) 07/04/2018 CR 1.43 (H) 07/04/2018 GFRESTIMATED 48 (L) 07/04/2018 GFRESTBLACK 58 (L) 07/04/2018 [place] 9.3 07/04/2018 TROLYSIST documented in this encounter Plan of Treatment Upcoming Encounters Date Type Specialty Care Team Description 06/26/2022 Ancillary Procedure Cardiology Seng Canchola MD [address] [place] [id number] (Wo rk) 08/16/2022 Ancillary Procedure Cardiology Timothy Smith MD [address] [place] [id number] (Wo rk) 08/16/2022 Office Visit Cardiology Timothy Smith MD [address] [place] [id number] (Wo wade) Scheduled Referrals Name Type Priority Associated Diagnoses Order S chedule Follow-Up with Referral Routine Paroxysmal atrial Expected : 11/22/2018 Cardiac Advanced fibrillation (H ) (Approximate), Practice Provider Cardiomyopathy, Expires : 11/15/2019 unspecified type (H) Ischemic cardiomyopathy documented as of this encounter Procedures Procedure Name Priority Date/Time Associated Diagnosis Comme nts EKG 12-LEAD Routine 11/15/2018 4:45 PM Paroxysmal atrial Resu lts for this COMPLETE W/READ - ELECTROLYSIST fibrillation (H) proced ure are in CLINICS the results section. documented in this encounter Results ECHO COMPLETE (11/18/2018 11:17 AM ELECTROLYSIST) Anatomical Region Laterality Modality Echocardiography Specimen (Source) Anatomical Collection Method Collection Time Re ceived Time Location / / Volume Laterality 11/18/2018 10:35 AM ELECTROLYSIST Narrative 11/19/2018 3:59 PM ELECTROLYSIST [id number]^BELEN^TAMMY^JUSTEN [facility] Echocardiography Laboratory [address] [id number] Name: RADHA VILLA : 1940 Study Date: 11/18/2018 10:35 AM Age: 78 yrs Gender: Male Patient Location: [facility] Reason For Study: Paroxysmal atrial fibr illation (H), Cardiomyopathy, unspecified Ordering Physician: TAMMY GLOVER Referring Physician: TAMMY GLOVER Performed By: Radha Mcgrath BSA: 2.6 m2 Height: 71 in Weight: 315 lb BP: 123/70 mmHg __ Procedure Complete Echo Adult. __ Interpretation Summary Very limited image quality which limits interpretation. Patient declined contrast (or IV site difficult) The left ventricle is mildly dilated. The visual ejection fraction is estimate d at 39-44%. Diastolic Doppler findings (E/E' ratio a nd/or other parameters) suggest left ventricular filling pressures are increa sed. Septal motion is consistent with conduct ion abnormality. There is mild global hypokinesia of the left ventricle. There is moderate to severe inferior and inferolateral wall hypokinesis. Mildly decreased right ventricular systo lic function There is mod-severe biatrial enlargement . The IVC is dilated and fails to change w ith respiration, suggesting elevated central venous pressure. Technically difficult, suboptimal study. __ Left Ventricle The left ventricle is mildly dilated. Th ere is normal left ventricular wall thickness. The visual ejection fraction is estimated at 39-44%. Diastolic function not assessed due to atrial fibr illation. Diastolic Doppler findings (E/E' ratio and/or other parameters) sug gest left ventricular filling pressures are increased. Septal motion i s consistent with conduction abnormality. There is mild global hypoki nesia of the left ventricle. There is moderate to severe inferior and inferola teral wall hypokinesis. Right Ventricle Borderline right ventricular enlargement . The right ventricle is not well visualized. Mildly decreased right ventr icular systolic function. Atria There is mod-severe biatrial enlargement . Mitral Valve There is mild (1+) mitral regurgitation. Tricuspid Valve There is trace tricuspid regurgitation. Right ventricular systolic pressure could not be approximated due to inadequ ate tricuspid regurgitation. Aortic Valve The aortic valve is trileaflet with aort ic valve sclerosis. No hemodynamically significant valvular aortic stenosis. Pulmonic Valve The pulmonic valve is not well seen, but is grossly normal. Vessels The ascending aorta is Borderline dilate d. The IVC is dilated and fails to change with respiration, suggesting elev ated central venous pressure. Pericardium The pericardium appears normal. Rhythm The rhythm was atrial fibrillation with controlled ventricular rate at rest. __ MMode/2D Measurements & Calculations IVSd: 0.92 cm LVIDd: 5.6 cm LVIDs: 4.6 cm LVPWd: 0.80 cm FS: 18.8 % LV mass(C)d: 180.5 grams LV mass(C)dI: 70.6 grams/m2 Ao root diam: 3.5 cm asc Aorta Diam: 3.7 cm LVOT diam: 2.6 cm LVOT area: 5.2 cm2 LA Volume (BP): 143.0 ml LA Volume Index (BP): 55.9 ml/m2 RWT: 0.28 Doppler Measurements & Calculations MV E max pascual: 100.3 cm/sec MV A max pascual: 36.0 cm/sec MV E/A: 2.8 MV dec time: 0.14 sec E/E' av.0 Lateral E/e': 18.2 Medial E/e': 19.8 __ Report approved by: Pop Bloom 11/19/2018 03:59 PM Procedure Note Jeffrey Fraser MD - 11/19/2018Format ting of this note might be different from the original. [id number]^BELEN^TAMMY^JUSTEN [facility] Echocardiography Laboratory [address] [place] [id number] Name: RADHA VILLA : 1940 Study Date: 11/18/2018 10:35 AM Age: 78 yrs Gender: Male Patient Location: [facility] Reason For Study: Paroxysmal atrial fibr illation (H), Cardiomyopathy, unspecified Ordering Physician: TAMMY GLOVER Referring Physician: TAMMY GLOVER Performed By: Radha Mcgrath BSA: 2.6 m2 Height: 71 in Weight: 315 lb BP: 123/70 mmHg __ Procedure Complete Echo Adult. __ Interpretation Summary Very limited image quality which limits interpretation. Patient declined contrast (or IV site difficult) The left ventricle is mildly dilated. The visual ejection fraction is estimate d at 39-44%. Diastolic Doppler findings (E/E' ratio a nd/or other parameters) suggest left ventricular filling pressures are increa sed. Septal motion is consistent with conduct ion abnormality. There is mild global hypokinesia of the left ventricle. There is moderate to severe inferior and inferolateral wall hypokinesis. Mildly decreased right ventricular systo lic function There is mod-severe biatrial enlargement . The IVC is dilated and fails to change w ith respiration, suggesting elevated central venous pressure. Technically difficult, suboptimal study. __ Left Ventricle The left ventricle is mildly dilated. Th ere is normal left ventricular wall thickness. The visual ejection fraction is estimated at 39-44%. Diastolic function not assessed due to atrial fibr illation. Diastolic Doppler findings (E/E' ratio and/or other parameters) sug gest left ventricular filling pressures are increased. Septal motion i s consistent with conduction abnormality. There is mild global hypoki nesia of the left ventricle. There is moderate to severe inferior and inferola teral wall hypokinesis. Right Ventricle Borderline right ventricular enlargement . The right ventricle is not well visualized. Mildly decreased right ventr icular systolic function. Atria There is mod-severe biatrial enlargement . Mitral Valve There is mild (1+) mitral regurgitation. Tricuspid Valve There is trace tricuspid regurgitation. Right ventricular systolic pressure could not be approximated due to inadequ ate tricuspid regurgitation. Aortic Valve The aortic valve is trileaflet with aort ic valve sclerosis. No hemodynamically significant valvular aortic stenosis. Pulmonic Valve The pulmonic valve is not well seen, but is grossly normal. Vessels The ascending aorta is Borderline dilate d. The IVC is dilated and fails to change with respiration, suggesting elev ated central venous pressure. Pericardium The pericardium appears normal. Rhythm The rhythm was atrial fibrillation with controlled ventricular rate at rest. __ MMode/2D Measurements & Calculations IVSd: 0.92 cm LVIDd: 5.6 cm LVIDs: 4.6 cm LVPWd: 0.80 cm FS: 18.8 % LV mass(C)d: 180.5 grams LV mass(C)dI: 70.6 grams/m2 Ao root diam: 3.5 cm asc Aorta Diam: 3.7 cm LVOT diam: 2.6 cm LVOT area: 5.2 cm2 LA Volume (BP): 143.0 ml LA Volume Index (BP): 55.9 ml/m2 RWT: 0.28 Doppler Measurements & Calculations MV E max pascual: 100.3 cm/sec MV A max pascual: 36.0 cm/sec MV E/A: 2.8 MV dec time: 0.14 sec E/E' av.0 Lateral E/e': 18.2 Medial E/e': 19.8 __ Report approved by: Pop Bloom 11/19/2018 03:59 PM Tammy Glover PA-C CV ECHO ORDERABLES (ABNORMAL) Basic metabolic panel (11/18/2018 10:02 AM [facility]) Analysis Performed At Patho logist Time Signature Sodium 144 133 - 144 11/18/2018 [facility] mmol/L 10:39 AM [facility] Potassium 3.8 3.4 - 5.3 11/18/2018 [facility] mmol/L 10:39 AM [facility] Chloride 105 94 - 109 11/18/2018 [facility] mmol/L 10:39 AM [facility] Carbon Dioxide 33 (H) 20 - 32 11/18/2018 [facility] mmol/L 10:46 AM [facility] Anion Gap 6 3 - 14 11/18/2018 [facility] mmol/L 10:46 AM [facility] Glucose 146 (H) 70 - 99 11/18/2018 [facility] mg/dL 10:46 AM [facility] Urea Nitrogen 30 7 - 30 11/18/2018 [facility] mg/dL 10:46 AM [facility] Creatinine 1.35 (H) 0.66 - 11/18/2018 [facility] 1.25 mg/dL 10:46 AM [facility] GFR Estimate 49 (L) >60 11/18/2018 [facility] mL/min/{1. 10:46 AM [facility] 73_m2} HOSPITAL Comment: Non GFR Calc Starting 09/17/2018, serum creatinine ba sed estimated GFR (eGFR) will be calculated using the Chronic Kidney Dise [facility] Epidemiology Collaboration (CKD-EPI) equation. GFR Estimate If 57 (L) >60 mL/min/{1.73_m2} 11/18/2018 10:46 AM [facility] Comment: GFR Calc Starting 09/17/2018, serum creatinine ba sed estimated GFR (eGFR) will be calculated using the Chronic Kidney Dise [facility] Epidemiology Collaboration (CKD-EPI) equation. Calcium 9.2 8.5 - 10.1 mg/dL 11/18/2018 10:46 AM [facility] Specimen Anatomical Collection Method Collection Time Receive d Time (Source) Location / / Volume Laterality Blood specimen 11/18/2018 10:02 9 (specimen) AM ELECTROLYSIST 10:07 AM ELECTROLYSIST Tammy Glover PA-C LAB - BLOOD ORDERABLES Performing Organization Address City/State/ZIP Code Phon e Number M [facility] [address], [place] [address] [place] [facility] [address] [place], [place] [address] [place] [address] EKG 12-lead complete w/read - Clinics (performed today) (11/15/2018 4:45 PM ELECTROLYSIST) Narrative This result has an attachment that is no t available. Tammy Glover PA-C ECG ORDERABLES documented in this encounter Visit Diagnoses Diagnosis Cardiomyopathy, unspecified type (H) - P rimary Paroxysmal atrial fibrillation (H) Atrial fibrillation SSS (sick sinus syndrome) (H) Sinoatrial node dysfunction Ischemic cardiomyopathy Other specified forms of chronic ischemi c heart disease Coronary artery disease involving yocha dehe coronary artery of yocha dehe heart without angina pectoris Paroxysmal atrial fibrillation (H) Atrial fibrillation Cardiomyopathy, unspecified type (H) Ischemic cardiomyopathy Other specified forms of chronic ischemi c heart disease documented in this encounter Care Teams Nail Galvanizer Relationship Specialty Start Date End Date Slava Hernandez PA-C PCP - General Physician Internal Combustion Engine Inspector 07/02/18 06/29/21 [facility] [address] [place] [address] documented as of this encounter
--- OUTSIDE RECORDS SUMMARY | 2022-06-22 08:55 | XMS_ITS | Encounter Summary ---
:1940 Author Organization [facility] Address [address] [place] [address] Care Team Providers Name Role Phone Slava Hernandez PA-C Primary Care Provider Reason for Referral CV Testing (Routine) - Closed Specialty Diagnoses / Procedures Referred By Contact Refer red To Contact Cardiology Diagnoses Paroxysmal atrial fibrillation (H) Cardiomyopathy, unspecified type (H) Ischemic cardiomyopathy Tammy Glover Rh Cv Cardiac Svc Rscc Procedures Echocardiogram Complete HC TTE W/DOPPLER, COMPLETE HC ECHO COMPLETE W DOPPLER W CONTRAST HC ECHO COMPLETE W DOPPLER W/O CONTRAST HC IV PUSH SINGLE, INITIAL SUBSTANCE HC US GUIDE FOR PERICARDIOCENTESIS HC ECHO MYOCARD BX MARIBEL Torres [address] C INJECTION, PERFLUTREN LIPI D MICROSPHERES, PER ML HC STATISTIC IV PUSH SINGLE INITIAL SUBSTANCE [address] [place] [address] [place] [address] Phone: Fax: Referral ID Status Reason Start Date Expiration Date Visits Requ ested Visits Authorized [id number] Closed 11/15/2018 11/15/2019 1 1 AD LASTER Reason for Visit CV Testing (Routine) - Closed Specialty Diagnoses / Procedures Referred By Contact Refer red To Contact Cardiology Diagnoses Paroxysmal atrial fibrillation (H) Cardiomyopathy, unspecified type (H) Ischemic cardiomyopathy Tammy Glover Rh Cv Cardiac Svc Rscc Procedures Echocardiogram Complete HC TTE W/DOPPLER, COMPLETE HC ECHO COMPLETE W DOPPLER W CONTRAST HC ECHO COMPLETE W DOPPLER W/O CONTRAST HC IV PUSH SINGLE, INITIAL SUBSTANCE HC US GUIDE FOR PERICARDIOCENTESIS HC ECHO MYOCARD BX MARIBEL Torres [id number] INJECTION, PERFLUTREN LIPI D MICROSPHERES, PER ML HC STATISTIC IV PUSH SINGLE INITIAL SUBSTANCE [address] [place] [address] [place] [address] Phone: Fax: Referral ID Status Reason Start Date Expiration Date Visits Requ ested Visits Authorized [id number] Closed 11/15/2018 11/15/2019 1 1 Encounter Details Date Type Department Care Team Description 11/18/2018 [facility] Belen Tammybridget Jaeger smaquyen atrial fibrillation (H); Encounter [facility] MARIBEL Torres Cardiomyopathy, unspecified type (H); [facility] [address] Ischemic cardiomyopathy [address] [place] [address] [place], [place] [phone] [address] (Work) [phone] Social History Tobacco Use Types Packs/Day Years Used Date Never Smoker Smokeless Tobacco: Never Used Alcohol Use Standard Drinks/Week Comments No 0 (1 standard drink = 0.6 oz pure alcoho l) Sex Assigned at Date Recorded Not on file documented as of this encounter Medications at Time of Discharge Medication Sig Dispensed Refills Start Date End Date ACYCLOVIR 400 MG OR TABS 1 TABLET 3 TIMES 30 6 04/25 DAILY-as need for Cold sores fenofibrate 160 MG tablet Take 160 mg by 0 mouth daily. acetaminophen (TYLENOL) Take 1-2 tablets (500-1,000 mg) by mouth every 8 hours as needed for mild pain (DO NOT FILL! For dosing only.) DO NOT FILL! 1 tablet 0 07/05/2018 01/01/2019 500 MG tablet For Dosing Only acetaminophen-codeine Take 1-2 tablets by 10 tablet 0 02/0301/01/2019 (TYLENOL #3) 300-30 MG mouth every 4 hours per tabletIndications: as needed for Sinoatrial node moderate pain dysfunction (H) apixaban ANTICOAGULANT Take 1 tablet (5 180 tablet 2 019 07/11/2019 (ELIQUIS) 5 MG mg) by mouth 2 tabletIndications: times daily Paroxysmal atrial fibrillation (H) celecoxib (CELEBREX) 200 Take 200 mg by 0 06/30/2021 MG capsule mouth 2 times daily furosemide (LASIX) 40 MG Take 1 tablet (40 0 11/0111/28/2018 tabletIndications: mg) by mouth 2 Ischemic cardiomyopathy times daily GLIPIZIDE PO Take 5 mg by mouth 0 12/2020 2 times daily (before meals) metFORMIN (GLUCOPHAGE) Take 2 tablets 60 tablet 0 6 06/30/2021 500 MG tabletIndications: (1,000 mg) by mouth Type 2 diabetes mellitus 2 times daily (with with complication (H) meals) metoprolol (TOPROL-XL) Take 1 tablet (100 90 tablet 1 10/0801/01/2019 100 MG 24 hr mg) by mouth daily tabletIndications: Palpitations nitroGLYcerin (NITROSTAT) Place 1 tablet (0.4 25 tablet 3 0 11/15/2018 02/24/2020 0.4 MG sublingual mg) under the tabletIndications: tongue every 5 Coronary artery disease minutes as needed involving craig coronary for chest pain artery of craig heart without angina pectoris ondansetron (ZOFRAN ODT) Take 1 tablet (4 10 tablet 0 07/0501/01/2019 4 MG ODT tab mg) by mouth every 8 hours as needed for nausea oxyCODONE IR (ROXICODONE) Take 1 tablet (5 12 tablet 0 10/01/201801/01/2019 5 MG tablet mg) by mouth every 6 hours as needed for pain PANTOPRAZOLE SODIUM PO Take 40 mg by mouth 0 07/07/2020 every morning (before breakfast). pravastatin (PRAVACHOL) Take 80 mg by mouth 0 06/30/2021 80 MG tablet At Bedtime terazosin (HYTRIN) 5 MG Take 1 capsule (5 90 capsule 3 10/2301/20/2020 capsuleIndications: mg) by mouth At Benign prostatic Bedtime hyperplasia with weak urinary stream documented as of this encounter Plan of Treatment Upcoming Encounters Date Type Specialty Care Team Description 06/26/2022 Ancillary Procedure Cardiology Seng Canchola MD [address] [place] [id number] (Wo rk) 08/16/2022 Ancillary Procedure Cardiology Timothy Smith MD [address] [place] [id number] (Wo rk) 08/16/2022 Office Visit Cardiology Timothy Smith MD [address] [place] [id number] (Wo rk) documented as of this encounter Procedures Procedure Name Priority Date/Time Associated Diagnosis Comme nts ECHO COMPLETE Routine 11/18/2018 11:17 AM Paroxysmal atrial Re sults for this THREAD LASTER fibrillation (H) procedure are in Cardiomyopathy, the results unspecified type (H) section. Ischemic cardiomyopathy documented in this encounter Results ECHO COMPLETE (11/18/2018 11:17 AM THREAD LASTER) Anatomical Region Laterality Modality Echocardiography Specimen (Source) Anatomical Collection Method Collection Time Re ceived Time Location / / Volume Laterality 11/18/2018 10:35 AM THREAD LASTER Narrative 11/19/2018 3:59 PM THREAD LASTER [id number]^BELEN^TAMMY^JOSEFABELINO [facility] Echocardiography Laboratory [address] [place] [address] Name: RADHA VILLA : 1940 Study Date: 11/18/2018 10:35 AM Age: 78 yrs Gender: Male Patient Location: [facility] Reason For Study: Paroxysmal atrial fibr illation [...] note might be different from the original. [id number]^BELEN^TAMMY^JOSEFABELINO [facility] Echocardiography Laboratory [address] [place] [address] Name: RADHA VILLA : 1940 Study Date: 11/18/2018 10:35 AM Age: 78 yrs Gender: Male Patient Location: [facility] Reason For Study: Paroxysmal atrial fibr illation [...] PM Tammy Glover PA-C CV ECHO ORDERABLES documented in this encounter Visit Diagnoses Diagnosis Paroxysmal atrial fibrillation (H) Atrial fibrillation Cardiomyopathy, unspecified type (H) Ischemic cardiomyopathy Other specified forms of chronic ischemi c heart disease documented in this encounter Care Teams Rehabilitation Case Coordinator Relationship Specialty Start Date End Date Slava Hernandez PA-C PCP - General Physician Floral Merchandiser 07/02/18 06/29/21 [facility] [address] [place] [address] documented as of this encounter
--- OUTSIDE RECORDS SUMMARY | 2022-06-22 08:55 | XMS_ITS | Encounter Summary ---
:1940 Author Organization [facility] Address [address] [place] [address] Care Team Providers Name Role Phone Slava Hernandez PA-C Primary Care Provider Reason for Visit Reason Comments Follow Up 1 week Encounter Details Date Type Department Care Team Description 11/28/[address] [facility] Elda Johnson ed edema (Primary Dx); [facility] Patt Montoya APRN Ischemic cardiomyopathy; [address] [facility] Coronary artery disease involving kweth[place] coronary artery of kw[place] heart with angina pectoris (H) [facility] [address] [place] [address] [address] [place], [place] [address] Social History Tobacco Use Types Packs/Day Years Used Date Never Smoker Smokeless Tobacco: Never Used Alcohol Use Standard Drinks/Week Comments No 0 (1 standard drink = 0.6 oz pure alcoho l) Sex Assigned at Date Recorded Not on file documented as of this encounter Last Filed Vital Signs Vital Sign Reading Time Taken Comments Blood Pressure 104/61 11/28/2018 10:40 AM VIDEO CONFERENCE SPECIALIST Pulse 54 11/28/2018 10:40 AM VIDEO CONFERENCE SPECIALIST Temperature - - Respiratory Rate - - Oxygen Saturation - - Inhaled Oxygen Concentration - - Weight 140.6 kg (310 lb) 11/28/2018 10:40 AM VIDEO CONFERENCE SPECIALIST Height 180.3 cm (5' 10.98) 11/28/2018 10:40 AM VIDEO CONFERENCE SPECIALIST Body Mass Index 43.26 11/28/2018 10:40 AM VIDEO CONFERENCE SPECIALIST documented in this encounter Progress Notes Elda Johnson, FLACO RIDER TICKET WORKER - 11/28/2018 10:50 AM CST HPI: Haris Villa is a 78 year old male who presents for follow up regarding his fluid overload. He is a patient of Dr. Smith and HANK Jacobo. Haris Villa's medical history includes: 1. Atrial flutter status post CTI ablation 01/[address] Smith 2. Persistent atrial fibrillation, initially on amiodarone therapy. He underwent DC cardioversion 05/2018 which was only briefly successful and amiodarone was subsequently stopped and a rate control method was pursued. 3. Chronic anticoagulation with Eliquis for CHADSVASc of 4 (diabetes, CAD, age++) 4. Sinus node dysfunction s/p dual-chamber [employer] pacemaker 01/2016. 5. Coronary disease status post 4v CABG 1986. Thought to be VG -OM, VG-RCA, VG- LAD and VG-D at that time. Angiogram 01/2016 showed patent VGs 6. Mild cardiomyopathy, On 06/2018, echo revealed EF 45-50%. 7. Other diagnosis include Obstructive sleep apnea, type 2 diabetes, obesity He saw Dr. Smith 03/2018 with increasing edema, fatigue and shortness of breath. His diuretics were adjusted and at that time he declined a coronary angiogram. On 07/02/[address] Smith and was doing betterwith only minimal fatigue and dyspnea his EF at that time was 45-50%. On 11/13/18 he saw his PCP for increased bilateral lower extremity edema. His creatinine at that time was 1.4 and his weight was 317pounds. His Lasix was increased to 40 mg twice daily. on 11/15/18 he saw HANK Jacobo, with increased lower extremity edema and shortness of breath, significant decrease in exercise tolerance with no significant improvement with the increase of diuretic. Patient did not feel this was related to his coronary artery disease but did admit to increased sodium in his diet. At that time, an echo and repeat BMP was recommended and there was a discussion to proceed with a stress test versus a coronary angiogram but the patient declined. 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 Intrinsic beats showed a right bundle branch block morphology. QRS duration was 180 ms (paced) Device interrogation 11/14/18 showed atrial fibrillation with controlled ventricular response. He had20 episodes of rapid ventricular response between 05/2018 and 10/17/2018. Full device interrogation 08/27/2018 shows 0% A Pacing and 41% V Pacing with an underlying rhythm ofA. fib with V pacing. He had been in atrial fibrillation since 07/2018. Echocardiogram 06/2018 showed an EF of 45-50% with mild to moderate concentric left ventricular hypertrophy. There was no significant valvular abnormalities ECHO (11/18/2018) revealed EF 39-44% (patient declined contrast), mild global hypokinesis of the leftventricle, moderate to severe inferior and inferolateral wall hypokinesis, mildly decreased right ventricle systolic function. Moderate- severe by atrial enlargement, IVC dilated. Today Haris Villa presents stating he has not lost a significant amount of weight since starting Lasix 40 mg twice daily. His current weight at home is 305 pounds. he is been taking his weight dailyand it varies from 303-308 since 11/19. He continues to have lower extremity edema however he does not wear compression stockings as they are difficult to put on. He tries to follow low-sodium diet. Andwhen asked what his biggest complaint is he states that 6 months ago he could walk a block without shortness of breath and today he cannot. 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 We did discuss that hehas new wall motion abnormalities on his recent echo however he did not want to pursue a stress testat this time. He was agreeable to changing his Lasix to torsemide. And he will return in 1 week withlabs prior. At this time he denies chest pain or pressure, dizziness, dyspnea with exertion, orthopnea, PND. At this time he is tolerating his Eliquis and denies easy bruising or bleeding, hematuria, hematochezia, and epistaxis. ASSESSMENT AND PLAN Cardiomyopathy. Patient's has had a low ejection fraction which has varied from 35-40% to 45-50% in the past year. In the last month he presented to his PCP with complaints of increased lower extremity edema and increased shortness of breath. At that time his Lasix was increased to 40 mg twice daily and an echocardiogram was repeated. He presents today for follow-up and is frustrated that his weight has not significantly decreased nor has his lower extremity edema. Patient had a recent ECHO which revealed distendedIVC, his abdomonen is distended and he has significant LE edema. Regarding his lower extremity edemaI recommended compression stockings and he would probably benefit from the ones with zippers and he may even benefit from a lymphedema referral. At this time he refused lymphedema clinic referral. He is currently taking metoprolol succinate 100 mg daily. At this time he is not on an AMINTA inhibitor which I believe was discontinued on 05/21/18 due to elevated creatinine of 2. At this time, he is agreeable to change his Lasix 40 mg twice daily to torsemide 20 mg twice daily and he will return to clinic in 1 week with BMP prior. Atrial fibrillation. A rate control method was attempted in 2017 after not maintaining sinus rhythm while on amiodarone his device check and his recent echo revealed persistent atrial fibrillation with overall controlled ventricular rate. Of note his device check on 11/14/18 showed atrial fibrillation with controlled ventricular response however he did have 20 episodes of RVR between 05/2018 and 10/17/18. He is currently taking metoprolol succinate 100 mg daily for rate control. He is taking Eliquis 5 mg twice daily for CHADS VASC 5 (HTN, HF, age++, CAD). Coronary artery disease. Patient had a CABG x 4 in 1983. He had an angiogram in 2015 which revealed patent bypass grafts. Over the course of the past 6 months patient has had a decrease in exercise tolerance. He can no longer walk a block without significant shortness of breath. And a repeat echo was performed which revealed new wall motion abnormalities. I recommended a stress test and at this time the patient has declined.He will continue on metoprolol succinate 100 mg daily and he has nitroglycerin as needed. Recommendations: ?? Stopped Lasix 40 mg twice daily and start torsemide 20 mg twice daily ?? Return to clinic in 1 week for labs and a visit ?? At that time could consider starting Spironolactone 12.5 mg daily or hydrochlorothiazide 12.5 mg daily. ?? Readdress a stress test at next visit ?? At some point the patient may benefit from a core referral to optimize medications such as an ACEinhibitor. ?? Recommend compression stockings with zippers. ?? At next visit recommend following up with Dr. Smith Patient expresses understanding and agreement with the plan. ?? I appreciate the chance to help with Haris Juan Miguel Villa Please let me know if you have any questions or concerns. Elda Johnson APRN, RIDER TICKET WORKER This note was completed in part using [employer] voice recognition software. Although reviewed after completion, some word and grammatical errors may occur. Orders Placed This Encounter Procedures ??? Basic metabolic panel ??? Follow-Up with Cardiac Advanced Practice Provider Orders Placed This Encounter Medications ??? torsemide (DEMADEX) 20 MG tablet Sig: Take 1 tablet (20 mg) by mouth 2 times daily Dispense: 60 tablet Refill: 11 Medications Discontinued During This Encounter Medication Reason ??? furosemide (LASIX) 40 MG tablet Encounter Diagnoses Name Primary? Localized edema Yes ??? Ischemic cardiomyopathy CURRENT MEDICATIONS: Current Outpatient Medications Medication Sig Dispense Refill ??? acetaminophen-codeine (TYLENOL #3) 300-30 MG per [...] mouth At Bedtime 90 capsule 3 ??? torsemide (DEMADEX) 20 MG tablet Take 1 tablet (20 mg) by mouth 2 times daily 60 tablet 11 ??? oxyCODONE IR (ROXICODONE) 5 MG tablet Take 1 tablet (5 mg) by mouth every 6 hours as needed for pain (Patient not taking: Reported on 11/28/2018) 12 tablet 0 ALLERGIES Allergies Allergen Reactions [...] on phone: None Gets together: None Attends gnosticist service: None Active member of club or organization: None Attends meetings of clubs or organizations: None Relationship status: None ??? Intimate partner violence: Fear of current or ex partner: None Emotionally abused: None Physically abused: None Forced sexual activity: None Other Topics Concern ??? Parent/sibling w/ CABG, CO or angioplasty before 65F 55M? No ??? [...] Positive for diabetes Physical Exam: Vitals: BP 104/61 Pulse 54 Ht 1.803 m (5' 10.98) Wt 140.6 kg (310 lb) BMI 43.26 kg/m?? Constitutional: cooperative, alert and oriented, well developed, well nourished, in no acute distress morbidly obese uses a walker Skin: warm and dry to the touch Head: normocephalic, no masses or lesions Eyes: pupils equal and round ENT: no pallor or cyanosis Neck: unable to assess JVP due to body habitus Chest: clear to auscultation Cardiac: irregularly irregular rhythm Abdomen: obese distended and firm Vascular: pulses full and equal Extremities and Back: no deformities, clubbing, cyanosis, [...] RESULTS: Lab Results Component Value Date NA 142 11/25/2018 POTASSIUM 4.3 11/25/2018 CHLORIDE 106 11/25/2018 CO2 33 (H) 11/25/2018 ANIONGAP 3 11/25/2018 GLC 131 (H) 11/25/2018 BUN 32 (H) 11/25/2018 CR 1.43 (H) 11/25/2018 GFRESTIMATED 46 (L) 11/25/2018 GFRESTBLACK 53 (L) 11/25/2018 [place] 9.2 11/25/2018 A1C RESULTS: Lab Results Component Value Date A1C 9.0 (H) 02/03/2016 INR RESULTS: Lab Results Component Value Date INR 1.25 (H) 07/04/2018 INR 1.00 02/04/2016 CC No referring provider defined for this encounter. O CONFERENCE SPECIALIST documented in this encounter Plan of Treatment Upcoming Encounters Date Type Specialty Care Team Description 06/26/2022 Ancillary Procedure Cardiology Seng Canchola MD [address] [place] [id number] (Wo rk) 08/16/2022 Ancillary Procedure Cardiology Timothy Smith MD [address] [place] [id number] (Wo rk) 08/16/2022 Office Visit Cardiology Timothy Smith MD [address] [place] [id number] (Wo rk) documented as of this encounter Results (ABNORMAL) Basic metabolic panel (12/12/2018 9:12 AM CDT) Analysis Performed At [facility] Time Signature Sodium 143 133 - 144 12/12/2018 [facility] mmol/L 9:51 AM [facility] Potassium 4.2 3.4 - 5.3 12/12/2018 [facility] mmol/L 9:51 AM [facility] Chloride 106 94 - 109 12/12/2018 [facility] mmol/L 9:51 AM [facility] Carbon Dioxide 31 20 - 32 12/12/2018 [facility] mmol/L 9:56 AM [facility] Anion Gap 6 3 - 14 12/12/2018 [facility] mmol/L 9:56 AM [facility] Glucose 101 (H) 70 - 99 12/12/2018 [facility] mg/dL 9:56 AM [facility] Urea Nitrogen 55 (H) 7 - 30 12/12/2018 [facility] mg/dL 9:56 AM [facility] Creatinine 2.20 (H) 0.66 - 12/12/2018 [facility] 1.25 mg/dL 9:56 AM [facility] GFR Estimate 27 (L) >60 12/12/2018 [place] mL/min/{1. 9:56 AM [facility] 73_m2} HOSPITAL Comment: Non GFR Calc Starting 09/17/2018, serum creatinine ba sed estimated GFR (eGFR) will be calculated using the Chronic Kidney Dise [facility] Epidemiology Collaboration (CKD-EPI) equation. GFR Estimate If 32 (L) >60 mL/min/{1.73_m2} 12/12/2018 9: 56 AM [facility] Comment: GFR Calc Starting 09/17/2018, serum creatinine ba sed estimated GFR (eGFR) will be calculated using the Chronic Kidney Dise [facility] Epidemiology Collaboration (CKD-EPI) equation. Calcium 8.8 8.5 - 10.1 mg/dL 12/12/2018 9:56 AM [facility] Specimen Anatomical Collection Method Collection Time Receive d Time (Source) Location / / Volume Laterality Blood specimen 12/12/2018 9:12 AM 019 9:14 (specimen) CDT AM CDT Elda Johnson APRN RIDER TICKET WORKER LAB - BLOOD ORDERABL ES Performing Organization Address City/State/ZIP Code Phon e Number M [facility] [address] [place], [place] [address] [facility] [address] [place], [place] [address] [phone] documented in this encounter Visit Diagnoses Diagnosis Localized edema - Primary Edema Ischemic cardiomyopathy Other specified forms of chronic ischemi c heart disease Coronary artery disease involving [place] coronary artery of kw[place] heart with angina pectoris (H) documented in this encounter Care Teams Energy Conservation Technician Relationship Specialty Start Date End Date Slava Hernandez PA-C PCP - General Physician Vacuum Filter Operator 07/02/18 06/29/21 [facility] [address] [place] [id number] documented as of this encounter
--- OUTSIDE RECORDS SUMMARY | 2022-06-22 08:55 | XMS_ITS | Encounter Summary ---
:1940 Author Organization [facility] Address [address] [place] [address] Care Team Providers Name Role Phone Slava Hernandez PA-C Primary Care Provider Encounter Details Date Type Department Care Team Description 12/12/2018 [facility] Heart [facility] em[facility] cardiomyopathy Clinic [address] [place] [address] Social History Tobacco Use [...] [address] [place] [id number] (Wo rk) 08/16/2022 Ancillary Procedure Cardiology Timothy Smith MD [address] [place] [id number] (Wo rk) 08/16/2022 Office Visit Cardiology Timothy Smith MD [address] [place] [phone] (Wo rk) documented as of this encounter Procedures Procedure Name Priority Date/Time Associated Diagnosis Comme nts BASIC METABOLIC Routine 12/12/2018 9:12 AM Ischemic cardiomyop athy Results for this PANEL CDT procedure are i n the results section. documented in this encounter Results (ABNORMAL) Basic metabolic panel (12/12/2018 9:12 AM CDT) Analysis Performed At Patho logist Time Signature Sodium 143 133 - 144 12/12/2018 [facility] mmol/L 9:51 AM [facility] Potassium 4.2 3.4 - 5.3 12/12/2018 [facility] mmol/L 9:51 AM [facility] Chloride 106 94 - 109 12/12/2018 [facility] mmol/L 9:51 AM [facility] Carbon Dioxide 31 20 - 32 12/12/2018 [facility] mmol/L 9:56 AM [facility] Anion Gap 6 3 - 14 12/12/2018 [facility] mmol/L 9:56 AM [facility] Glucose 101 (H) 70 - 99 12/12/2018 [place] mg/dL 9:56 AM [facility] Urea Nitrogen 55 (H) 7 - 30 12/12/2018 [facility] mg/dL 9:56 AM [facility] Creatinine 2.20 (H) 0.66 - 12/12/2018 [facility] 1.25 mg/dL 9:56 AM [facility] GFR Estimate 27 (L) >60 12/12/2018 [place] mL/min/{1. 9:56 AM [facility] 73_m2} [facility] Comment: Non GFR Calc Starting 09/17/2018, serum creatinine ba sed estimated GFR (eGFR) will be calculated using the Chronic Kidney Dise [facility] Epidemiology Collaboration (CKD-EPI) equation. GFR Estimate If 32 (L) >60 mL/min/{1.73_m2} 12/12/2018 9: 56 AM [facility] Comment: GFR Calc Starting 09/17/2018, serum creatinine ba sed estimated GFR (eGFR) will be calculated using the Chronic Kidney Dise [facility] Epidemiology Collaboration (CKD-EPI) equation. Calcium 8.8 8.5 - 10.1 mg/dL 12/12/2018 9:56 AM [facility] Specimen Anatomical Collection Method Collection Time Receive d Time (Source) Location / / Volume Laterality Blood specimen 12/12/2018 9:12 AM 019 9:14 (specimen) CDT AM CDT Elda Lindsay Johnson APRN COMPILATION CLERK LAB - BLOOD ORDERABL ES Performing Organization Address City/State/ZIP Code Phon e Number M [facility] [address] [place], [place] [address] [facility] [address] [phone] documented in this encounter Visit Diagnoses Diagnosis Ischemic cardiomyopathy Other specified forms of chronic ischemi c heart disease documented in this encounter Care Teams Simonizer Relationship Specialty Start Date End Date Slava Hernandez PA-C PCP - General Physician Highway Traffic Control Technician 07/02/18 06/29/21 [facility] [id number] [place] [phone] documented as of this encounter
--- OUTSIDE RECORDS SUMMARY | 2022-06-22 08:55 | XMS_ITS | Encounter Summary ---
:1940 Author Organization [facility] Address [address] [place] [address] Care Team Providers Name Role Phone Slava Hernandez PA-C Primary Care Provider Reason for Referral Diagnostic Imaging XR - Closed Specialty Diagnoses / Procedures Referred By Contact Refer red To Contact Radiology. Diagnoses Calculus of kidney Shea Rivera PA-C Rh Xray Procedures XR KUB [[id number]] [address] [place], [place] [phone] Fax: Referral ID Status Reason Start Date Expiration Date Visits Requ ested Visits Authorized [id number] Closed 10/23/2018 10/23/2019 1 1 PHONE DIRECTORY DELIVERER Reason for Visit Reason Comments Other stone Encounter Details Date Type Department Care Team Description 10/23/2018 Office Visit [facility] Shea Rivera, Calcul us of kidney (Primary Dx); [facility] Benign prostatic hyperplasia with weak u rinary stream Ken[place] [address] [place] [address] [place], [place] [phone] (Work) [phone] Social History Tobacco Use Types Packs/Day Years Used Date Never Smoker Smokeless Tobacco: Never Used Alcohol Use Standard Drinks/Week Comments No 0 (1 standard drink = 0.6 oz pure alcoho l) Sex Assigned at Date Recorded Not on file documented as of this encounter Last Filed Vital Signs Vital Sign Reading Time Taken Comments Blood Pressure - - Pulse 82 10/23/2018 1:26 PM TELEPHONE DIRECTORY DELIVERER Temperature - - Respiratory Rate - - Oxygen Saturation 92% 10/23/2018 1:26 PM TELEPHONE DIRECTORY DELIVERER Inhaled Oxygen Concentration - - Weight 133.8 kg (295 lb) 10/23/2018 1:26 PM TELEPHONE DIRECTORY DELIVERER Height 180.3 cm (5' 11) 10/23/2018 1:26 PM TELEPHONE DIRECTORY DELIVERER Body Mass Index 41.14 10/23/2018 1:26 PM TELEPHONE DIRECTORY DELIVERER documented in this encounter Patient Instructions Patient InstructionsHuShea monae PA-C - 10/23/2018 1:30 PM CST Standard recommendations on kidney stone prevention: -These include maintaining fluid intake of 3 liters per day or more with a goal of making 2 or more liters of urine per day. If alcoholic or caffeinated beverages are consumed, you need to drink water along with these beverages to maintain hydration. -A few ounces of lemon juice concentrate a day diluted in water can help prevent stones (citrate is a stone inhibitor). -Sodium influences calcium excretion in the urine. Limit intake of red meat, salt, and salty processed foods. -Uric acid-high levels in the blood can lead to kidney stones and gout, especially if the urine pH is low. Reduce her protein intake, especially red meats. -Weight loss, if overweight, can reduce the recurrence of kidney stones. -Diabetes-if diabetic, you are at a greater risk of having kidney stones. -Maintain calcium intake in diet through continued consumption of dairy products etc. -Limit foods that are high in oxalate such as spinach, sweet potatoes, dark chocolate, soy products,and some nuts such as peanuts. -Medications that can increase risk of kidney stones: Ephedrine, Guaifenesin, Triamterene, Lasix, Diamox, Topamax, Zonegran, laxatives. -Additional/different recommendations pending any stone analysis. PHONE DIRECTORY DELIVERER documented in this encounter Progress Notes Shea Rivera PA-C - 10/23/2018 1:30 PM CST CC: Left UVJ stone. HPI: It is a pleasure to see Mr. Haris Villa, a pleasant 78 year old male seen today in the urology clinic in consultation from Dustin Hernandez PA-C for evaluation of the above. Passed two kidney stones in Jul. No prior hx of stones. Noted to have 3-5 RBCs on one UA this year and CT stone protocol showed 6mm left UVJ stone without hydronephrosis. Recent BMP revealed Cr 1.2 and Ca to be normal. UA today negative. Currently, the patient reports no pain. The patient has not been straining their urine with no captured stones thus far. Denies gross hematuria, dysuria, fevers, chills, N/V. Saw Dr. Moura in 2011 for urinary frequency, weak stream (BPH). Had good response to Flomax but hadtotal loss of sex drive and has now been off of it. RECENT IMAGING: Microscopic hematuria. Prior cholecystectomy. History of kidney stones. TECHNIQUE: Unenhanced helical CT of the abdomen and pelvis. Sagittal and coronal reformats generated. PLEASE NOTE THAT ALL CT SCANS AT THIS FACILITY USE DOSE MODULATION, ITERATIVE RECONSTRUCTION, AND/ORWEIGHT-BASED DOSING WHEN APPROPRIATE TO REDUCE RADIATION TO LOW REASONABLY ACHIEVABLE. COMPARISON: 09/03/2018. FINDINGS: Subpleural interstitial thickening at the lung bases may be indicative of pulmonary fibrosis and with mild peripheral bronchiectasis. Pleural plaque laterally in the right lower lung zone. Enlarged heart. Right atrial right ventricular leads. Calcified granulomas at the right lung base. Calcifications within the liver and spleen consistent with old granulomatous disease. No definite masses appreciated within the unenhanced pancreas, liver, spleen or the adrenal glands. Exophytic cyst at the upper pole of the right kidney. No evidence of nephrolithiasis. 6 millimeter calcification at the left uretero vesical junction without significant hydronephrosis. This has progressed to the ureterovesical junction from the distal aspect of the ureter on the previous exam. Normal prostate size. Colonic diverticulosis without evidence of diverticulitis. No abdominal aortic aneurysm. Prior cholecystectomy. Multilevel degenerative disc disease and facet arthrosis of the lumbar spine. Impression: 1. 6 mm calculus at the left ureterovesical junction without significant hydroureteronephrosis. 2. Colonic diverticulosis. 3. Upper pole right renal cyst. 4. 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 5. Prior cholecystectomy. 6. Probable pulmonary fibrosis. Past Medical History: Diagnosis Date ??? Arthritis [...] near syncope, PM 02/03/2016 ??? Sleep apnea Past Surgical History: Procedure Laterality Date ??? C CABG, ARTERY-VEIN, FOUR 1985 ??? CATHETER, ABLATION 01/2013 Atrial flutter ??? CHOLECYSTECTOMY ??? HC LEFT HEART CATHETERIZATION 01/2012 see report ??? HERNIA REPAIR ??? ORTHOPEDIC SURGERY ??? rotator cuff ??? TESTICLE SURGERY ??? VASECTOMY Current Outpatient Medications Medication Sig Dispense Refill ??? ACYCLOVIR 400 MG OR TABS 1 TABLET 3 TIMES DAILY-as need for Cold sores 30 6 ??? apixaban ANTICOAGULANT (ELIQUIS) 5 MG tablet Take 1 tablet (5 mg) by mouth 2 times daily 180 tablet 3 ??? celecoxib (CELEBREX) 200 [...] 80 mg by mouth At Bedtime ??? acetaminophen-codeine (TYLENOL #3) 300-30 MG per tablet Take 1-2 tablets by mouth every 4 hours as needed for moderate pain (Patient not taking: Reported on 10/23/2018) 10 tablet 0 ??? furosemide (LASIX) 40 MG tablet Take 1 tablet (40 mg) by mouth daily (Patient not taking: Reported on 10/23/2018) 30 tablet 3 ??? nitroglycerin (NITROSTAT) 0.[address] 0.4 mg under the tongue every 5 minutesas needed for chest pain For chest pain place 1 tablet under the tongue every 5 minutes for 3 doses.If symptoms persist 5 minutes after 1st dose call 911. ??? oxyCODONE IR (ROXICODONE) 5 MG tablet Take 1 tablet (5 mg) by mouth every 6 hours as needed for pain (Patient not taking: Reported on 10/23/2018) 12 tablet 0 Allergies Allergen Reactions ??? No Known Allergies FAMILY HISTORY: There is no family h/o malignancy. There is no family h/o urolithiasis. SOCIAL HISTORY: The patient does not smoke cigarettes. Denies EtOH and illicit drug abuse. ROS: A comprehensive 14 point ROS was obtained and otherwise negative except for that outlined abovein the HPI. GENERAL PHYSICAL EXAM: Pulse 82 Ht 1.803 m (5' 11) Wt 133.8 kg (295 lb) SpO2 92% BMI 41.14 kg/m?? GEN: NAD EYES: EOMI MOUTH: MMM NECK: Supple RESP: Unlabored breathing CARDIAC: No LE edema SKIN: Warm ABD: soft NEURO: AAO UA today neg. ASSESSMENT AND PLAN: 78 year old male with a lef-sided UVJ calculus and BPH w/ LUTS. - Warning signs discussed including fevers, chills, N/V, gross hematuria, severe pain that is refractory to medications which should prompt more urgent evaluation. Patient understands to proceed to theER should these warning signs occur outside of clinic hours. -Check KUB, has not been straining urine. Will call with results. Discussed that sometimes a repeat CT in needed to confirm passage. -Trial of terazosin; SE reviewed. RTO 3-6 months for for med check, PVR During counseling for this visit, we covered the natural history of kidney stones, the risk of progression to symptomatic pain/infection, and the possibility of renal failure/kidney damage. We covered treatment options including observation, medical expulsive therapy, ureteroscopy/laser/stent. Standard recommendations on kidney stone prevention were provided. I have enjoyed participating in the medical care of this patient and will continue to keep you updated on his progress. Please do not hesitate to contact me with any questions or concerns. Shea Rivera PA-C [facility] Urology 30 minutes were spent with the patient today, > 50% in counseling and coordination of care of kidney stone. PHONE DIRECTORY DELIVERER Shea Rivera PA-C - 10/23/2018 1:30 PM CST 2011 [place] PHONE DIRECTORY DELIVERER documented in this encounter Nursing Notes Delores Wilburn CMA - 10/23/2018 1:30 PM CST Pt here for stone Follow-up. Pt has had dark urine. Pt sometimes had flank pain. Pt passed 2 stones in [place] PHONE DIRECTORY DELIVERER documented in this encounter Plan of Treatment Upcoming Encounters Date Type Specialty Care Team Description 06/26/2022 Ancillary Procedure Cardiology Seng Canchola MD [address] [place] [id number] (Wo rk) 08/16/2022 Ancillary Procedure Cardiology Timothy Smith MD [address] [place] [phone] (Wo rk) 08/16/2022 Office Visit Cardiology Timothy Smith MD [address] [place] [phone] (Wo rk) documented as of this encounter Procedures Procedure Name Priority Date/Time Associated Comments Diagnosis URINE MACROSCOPIC Routine 10/23/2018 1:33 PM Calculus of kidne y Results for this ONLY TELEPHONE DIRECTORY DELIVERER procedure are i n the results section. documented in this encounter Results XR KUB [[id number]] (10/23/2018 2:27 PM TELEPHONE DIRECTORY DELIVERER) Anatomical Region Laterality Modality Abdomen/Pelvis Digital Radiography Specimen (Source) Anatomical Location Collection Method / Collectio n Time Received Time / Laterality Volume Impressions 10/23/2018 2:44 PM TELEPHONE DIRECTORY DELIVERER IMPRESSION: No specific evidence of the previously seen distal ureteral stone. JEFFREY PA MD Narrative 10/23/2018 2:44 PM TELEPHONE DIRECTORY DELIVERER XR KUB 10/23/2018 2:27 PM HISTORY: Left ureteral stone. COMPARISON: Abdomen and pelvis CT, 2017 FINDINGS: There is no specific density i n the projection of the pelvis to correlate with the previously seen di stal left ureteral stone. No evidence of renal calculus. The bowel ga s pattern is nonobstructive. Procedure Note Jeffrey Pa MD - 10/23/2018For matting of this note might be different from the original. XR KUB 10/23/2018 2:27 PM HISTORY: Left ureteral stone. COMPARISON: Abdomen and pelvis CT, 2017 FINDINGS: There is no specific density i n the projection of the pelvis to correlate with the previously seen di stal left ureteral stone. No evidence of renal calculus. The bowel ga s pattern is nonobstructive. IMPRESSION: No specific evidence of the previously seen distal ureteral stone. JEFFREY PA MD Shea Rivera PA-C IMG DIAGNOSTIC IMAGING ORDER ANN (ABNORMAL) UA without Microscopic [[id number]] (10/23/2018 1:33 PM TELEPHONE DIRECTORY DELIVERER) [facility] Method Time Signature Color Urine Yellow 10/23/2018 [place] 1:36 PM [facility] Appearance Urine Clear 10/23/2018 [place] 1:36 PM TELEPHONE DIRECTORY DELIVERER [facility] Glucose Urine Negative NEG^Negat 10/23/2018 [place] mike mg/dL 1:36 PM TELEPHONE DIRECTORY DELIVERER [facility] Bilirubin Urine Negative NEG^Negat 10/23/2018 [place] mike 1:36 PM TELEPHONE DIRECTORY DELIVERER [facility] Ketones Urine Trace (A) NEG^Negat 10/23/2018 [place] mike mg/dL 1:36 PM TELEPHONE DIRECTORY DELIVERER [facility] Specific [place] >1.030 1.003 - 10/23/2018 [place] Urine 1.035 1:36 PM TELEPHONE DIRECTORY DELIVERER [facility] Blood Urine Negative NEG^Negat 10/23/2018 [place] mike 1:36 PM TELEPHONE DIRECTORY DELIVERER [facility] pH Urine 6.0 5.0 - 7.0 10/23/2018 [place] pH 1:36 PM TELEPHONE DIRECTORY DELIVERER [facility] Protein Albumin 100 (A) NEG^Negat 10/23/2018 [place] Urine mike mg/dL 1:36 PM TELEPHONE DIRECTORY DELIVERER [facility] Urobilinogen 1.0 0.2 - 1.0 10/23/2018 [place] Urine EU/dL 1:36 PM TELEPHONE DIRECTORY DELIVERER [facility] Nitrite Urine Negative NEG^Negat 10/23/2018 [place] mike 1:36 PM TELEPHONE DIRECTORY DELIVERER [facility] Leukocyte Negative NEG^Negat 10/23/2018 [place] Esterase Urine mike 1:36 PM TELEPHONE DIRECTORY DELIVERER [facility] Source Midstream 10/23/2018 [place] Urine 1:35 PM TELEPHONE DIRECTORY DELIVERER [facility] Specimen (Source) Anatomical Collection Method Collection Time Re ceived Time Location / / Volume Laterality Examination of 10/23/2018 1:33 10/23/2018 1:34 midstream urine PM TELEPHONE DIRECTORY DELIVERER PM TELEPHONE DIRECTORY DELIVERER specimen (procedure) Shea Rivera PA-C LAB - URINE ORDERABLES Performing Organization Address City/State/ZIP Code Phon e Number [facility] [address] [place] [address] [facility] [address] documented in this encounter Visit Diagnoses Diagnosis Calculus of kidney - Primary Benign prostatic hyperplasia with weak u rinary stream Calculus of kidney documented in this encounter Care Teams Wiring Technician Relationship Specialty Start Date End Date Slava Hernandez PA-C PCP - General Physician Salesperson Burial Needs 07/02/18 06/29/21 [facility] [address] [place] [address] documented as of this encounter
--- OUTSIDE RECORDS SUMMARY | 2022-06-22 08:55 | XMS_ITS | Encounter Summary ---
:1940 Author Organization [facility] Address [address] [place] [address] Care Team Providers Name Role Phone Slava Hernandez PA-C Primary Care Provider Encounter Details Date Type Department Care Team Description 11/14/2018 Telephone [facility] Norris, [place], [facility] RN [address] [facility] [address] [facility] [address] [place] [address] [place] [address] [phone] (Wo rk) Social History Tobacco Use Types Packs/Day Years Used Date Never Smoker Smokeless Tobacco: Never Used Alcohol Use Standard Drinks/Week Comments No 0 (1 standard drink = 0.6 oz pure alcoho l) Sex Assigned at Date Recorded Not on file documented as of this encounter Miscellaneous Notes Telephone Encounter - Mary Norris RN, RN - 11/14/2018 11:02 AM SLEEP SCIENTIST Pt calling to report CHF symptoms of fatiuge, weakness, decreased exercise intolerance, and palpitations. His PCP doubled his diuretic and wanted him to be seen by Dr Smith. He cannot see Dr Smith for awhileso will see Saadiajessica Montenegro instead on 11/15/18. He sent a remote PPM transmission that showed afib with controlled vent rate. He had 20 episodes of afib with RVR since 05/18 but none since 10/17/18. P SCIENTIST documented in this encounter Plan of Treatment Upcoming Encounters Date Type Specialty Care Team Description 06/26/2022 Ancillary Procedure Cardiology Seng Canchola MD [address] [place] [id number] (Wo rk) 08/16/2022 Ancillary Procedure Cardiology Timothy Smith MD [address] [place] [phone] (Wo rk) 08/16/2022 Office Visit Cardiology Timothy Smith MD [address] [place] [phone] (Wo rk) documented as of this encounter Visit Diagnoses Not on filedocumented in this encounter Care Teams Hair Designer Relationship Specialty Start Date End Date Slava Hernandez PA-C PCP - General Physician Scraper Tender 07/02/18 06/29/21 [facility] [address] [place] [address] documented as of this encounter
--- OUTSIDE RECORDS SUMMARY | 2022-06-22 08:55 | XMS_ITS | Encounter Summary ---
:1940 Author Organization [place] [facility] Address [address] [place] [address] Care Team Providers Name Role Phone Slava Hernandez PA-C Primary Care Provider Encounter Details Date Type Department Care Team Description 11/25/2018 Orders Only [facility] Heart ACS (acute coronary [facility] [place] syndrome) (H) [address] [facility] [address] [place] [address] Social History Tobacco Use [...] [address] [place] [id number] (Wo rk) 08/16/2022 Ancillary Procedure Cardiology Timothy Smith MD [address] [place] [id number] (Wo rk) 08/16/2022 Office Visit Cardiology Timothy Smith MD [address] [place] [id number] (Wo rk) documented as of this encounter Procedures Procedure Name Priority Date/Time Associated Diagnosis Comme nts BASIC METABOLIC Routine 11/25/2018 10:56 AM ACS (acute coronar y Results for this PANEL TRANSPORTATION DISPATCH MANAGER syndrome) (H) procedure are in the results section. documented in this encounter Results (ABNORMAL) Basic metabolic panel (11/25/2018 10:56 AM [facility]) Analysis Performed At Patho logist Time Signature Sodium 142 133 - 144 11/25/2018 [facility] mmol/L 11:18 AM [facility] Potassium 4.3 3.4 - 5.3 11/25/2018 [facility] mmol/L 11:18 AM [facility] Chloride 106 94 - 109 11/25/2018 [facility] mmol/L 11:18 AM [facility] Carbon Dioxide 33 (H) 20 - 32 11/25/2018 [facility] mmol/L 11:24 AM [facility] Anion Gap 3 3 - 14 11/25/2018 [facility] mmol/L 11:24 AM [facility] Glucose 131 (H) 70 - 99 11/25/2018 [facility] mg/dL 11:24 AM [facility] Urea Nitrogen 32 (H) 7 - 30 11/25/2018 [facility] mg/dL 11:24 AM [facility] Creatinine 1.43 (H) 0.66 - 11/25/2018 [facility] 1.25 mg/dL 11:24 AM [facility] GFR Estimate 46 (L) >60 11/25/2018 [place] mL/min/{1. 11:24 AM [facility] 73_m2} HOSPITAL Comment: Non GFR Calc Starting 09/17/2018, serum creatinine ba sed estimated GFR (eGFR) will be calculated using the Chronic Kidney Dise [facility] Epidemiology Collaboration (CKD-EPI) equation. GFR Estimate If 53 (L) >60 mL/min/{1.73_m2} 11/25/2018 11:24 AM [facility] Comment: GFR Calc Starting 09/17/2018, serum creatinine ba sed estimated GFR (eGFR) will be calculated using the Chronic Kidney Dise [facility] Epidemiology Collaboration (CKD-EPI) equation. Calcium 9.2 8.5 - 10.1 mg/dL 11/25/2018 11:24 AM [facility] Specimen Anatomical Collection Method Collection Time Receive d Time (Source) Location / / Volume Laterality Blood specimen 11/25/2018 10:56 02/25/201 9 (specimen) AM TRANSPORTATION DISPATCH MANAGER 10:59 AM TRANSPORTATION DISPATCH MANAGER Tammy Montenegro PA-C LAB - BLOOD ORDERABLES Performing Organization Address City/State/ZIP Code Phon e Number M [facility] [address] [place], [place] [address] [facility] [address] [place], [place] [address] [place] [address] documented in this encounter Visit Diagnoses Diagnosis ACS (acute coronary syndrome) (H) Intermediate coronary syndrome documented in this encounter Care Teams Plant Puller Relationship Specialty Start Date End Date Slava Hernandez PA-C PCP - General Physician Gizzard Puller 07/02/18 06/29/21 [facility] [id number] [place] [id number] documented as of this encounter
--- OUTSIDE RECORDS SUMMARY | 2022-06-22 08:55 | XMS_ITS | Encounter Summary ---
:1940 Author Organization [place] Address [address] [facility] [place] [address] Care Team Providers Name Role Phone Slava Hernandez PA-C Primary Care Provider Encounter Details Date Type Department Care Team Description 11/15/2018 Travel Social History Tobacco Use Types Packs/Day [...] [address] [place] [phone] (Wo rk) 08/16/2022 Ancillary Procedure Cardiology Timothy Smith MD [address] [place] [phone] (Wo rk) 08/16/2022 Office Visit Cardiology Timothy Smith MD [address] [place] [phone] (Wo rk) documented as of this encounter Visit Diagnoses Not on filedocumented in this encounter Care Teams Steam Tunnel Feeder Relationship Specialty Start Date End Date Slava Hernandez PA-C PCP - General Physician Auto Suspension And Steering Mechanic 07/02/18 06/29/21 [facility] [id number] [place] [address] [place] [address] documented as of this encounter
--- OUTSIDE RECORDS SUMMARY | 2022-06-22 08:55 | XMS_ITS | Encounter Summary ---
:1940 Author Organization [place] Address [address] [place] [address] Care Team Providers Name Role Phone Slava Hernandez PA-C Primary Care Provider Reason for Visit Reason Onset Date Comments Clinic Care Coordination - Initial 11/26/2018 woods e OV Encounter Details Date Type Department Care Team Description 11/26/2018 Telephone [facility] Lacy [place] C linic Care Coordination Clinic [place] RN - Initial (change OV) [address] [facility] [address] [place] [address] Social History Tobacco Use Types Packs/Day Years Used Date Never Smoker Smokeless Tobacco: Never Used Alcohol Use Standard Drinks/Week Comments No 0 (1 standard drink = 0.6 oz pure alcoho l) Sex Assigned at Date Recorded Not on file documented as of this encounter Miscellaneous Notes Telephone Encounter - Lacy [place] RN - 11/26/2018 9:08 AM CST Pt called back and was explained of the mix up and pt will come to [place] on at 1050 and seeMaureen. Pt had BMP on 11/25. . Jing ISSIONER OF RELOCATION SERVICES Telephone Encounter - Lacy [place] RN - 11/26/2018 8:19 AM CST LM with pt to have pt call back to discuss his OV scheduled for tomorrow and that it is not scheduled with enough time. Jing ISSIONER OF RELOCATION SERVICES documented in this encounter Plan of Treatment Upcoming Encounters Date Type Specialty Care Team Description 06/26/2022 Ancillary Procedure Cardiology Seng Canchola MD [address] [place] [address] (Wo rk) 08/16/2022 Ancillary Procedure Cardiology Timothy Smith MD [address] [place] [id number] (Wo rk) 08/16/2022 Office Visit Cardiology Timothy Smith MD [address] [place] [id number] (Wo rk) documented as of this encounter Visit Diagnoses Not on filedocumented in this encounter Care Teams Band Master Relationship Specialty Start Date End Date Slava Hernandez PA-C PCP - General Physician Speech And Drama Teacher 07/02/18 06/29/21 [facility] [address] [place] [address] documented as of this encounter
--- OUTSIDE RECORDS SUMMARY | 2022-06-22 08:55 | XMS_ITS | Encounter Summary ---
:1940 Author Organization [place] Address [address] [place] [address] Care Team Providers Name Role Phone Slava Hernandez PA-C Primary Care Provider Encounter Details Date Type Department Care Team Description 12/12/2018 Telephone [facility] Patt Montoya APRN [facility] [address] [place] [address] [place] [id number] [phone] Social History Tobacco Use Types Packs/Day Years Used Date Never Smoker Smokeless Tobacco: Never Used Alcohol Use Standard Drinks/Week Comments No 0 (1 standard drink = 0.6 oz pure alcoho l) Sex Assigned at Date Recorded Not on file documented as of this encounter Miscellaneous Notes Telephone Encounter - Lacy [place] RN - 12/30/2018 8:09 AM CDT Spoke to pt who will see Dr smith on Sunday at 1115. Jing Telephone Encounter - Lacy [place] RN - 12/27/2018 10:46 AM CDT Pt returned call and states that he would like to see Dr smith at this time. Will discuss with Dr Smith ifhe can see pt next week instead. Jing Telephone Encounter - Temitope Tamayo RN - 12/26/2018 2:47 PM CDT Message left for patient to have patient be seen sooner d/t abnormal labs. Awaiting return call. SIENNA Okeefe Telephone Encounter - Elda Johnson APRN CNP - 12/19/2018 2:39 PM CDT Can you look at Dr. Smith's schedule. Is there a way we can have Don see Dr. Smith sooner than 01/20. Wouldhe feel comfortable seeing Saadia or I prior. Telephone Encounter - Lacy [place] RN - 12/19/2018 7:49 AM CDT Pt could not do an an OV on 12/18 as he has OV at [facility] on the same day. Pt states that he will decide on the OV already scheduled on 01/20. Jing Telephone Encounter - Lacy [place] RN - 12/17/2018 1:50 PM CDT LM for pt that Dr Smith has 2 OV available in [place] tomorrow if pt is wanting to be seen sooner. Jing Telephone Encounter - Elda Johnson APRN CNP - 12/17/2018 1:03 PM CDT Scheduling called patient, however, he wants to follow up with Vinny. He is going to keep his appointment with Dr. Smith in December in case it does not work out Telephone Encounter - Elda Johnson APRN CNP - 12/16/2018 9:18 AM CDT I am sorry; I would also like to see the patient the day of the lab (12/19/2018). Can you help me schedule an appointment too. His creatinine is not normal and I would like to assess his symptoms. Thank you, Elda Telephone Encounter - Temitope Tamayo RN - 12/13/2018 9:59 AM CDT Spoke to patient regarding results of BMP from 12/12. Per Elda Johnson, ARTURO: 1) his creatinine was elevated 2) Decrease torsemide to 20 mg daily--updated medication list in epic 3) no advil or aleve 4) Come to clinic and repeat labs in 1 week--scheduled in [facility] on 12/19 at 9:45am 5) follow low sodium diet 6) watch fluid intake Patient provided verbal understanding regarding above. SIENNA Okeefe Telephone Encounter - Elda Johnson APRN CNP - 12/12/2018 4:20 PM CDT Left message for patient to call clinic for the followin) his creatinine was elevated 2) Decrease torsemide to 20 mg daily 3) no advil or aleve 4) Come to clinic and repeat labs in 1 week 5) follow low sodium diet 6) watch fluid intake documented in this encounter Plan of Treatment Upcoming Encounters Date Type Specialty Care Team Description 06/26/2022 Ancillary Procedure Cardiology Seng Canchola MD [address] [facility] [address] [place] [phone] (Wo rk) 08/16/2022 Ancillary Procedure Cardiology Timothy Smith MD [address] [place] [phone] (Wo rk) 08/16/2022 Office Visit Cardiology Timothy Smith MD [address] [place] [phone] (Wo rk) documented as of this encounter Visit Diagnoses Diagnosis Coronary artery disease involving [place] coronary artery of [place] heart with angina pectoris (H) - Primary Localized edema Edema documented in this encounter Care Teams Java Web User Interface Developer Relationship Specialty Start Date End Date Slava Hernandez PA-C PCP - General Physician Melt Down Furnace Operator 07/02/18 06/29/21 [facility] [address] [place] [address] documented as of this encounter
--- OUTSIDE RECORDS SUMMARY | 2022-06-22 08:55 | XMS_ITS | Encounter Summary ---
:1940 Author Organization [place] Address [address] [facility] [place] [address] Care Team Providers Name Role Phone Slava Hernandez PA-C Primary Care Provider Encounter Details Date Type Department Care Team Description 12/12/2018 Travel Social History Tobacco Use Types Packs/Day [...] [address] [place] [phone] (Wo rk) 08/16/2022 Ancillary Procedure Cardiology Timothy Smith MD [address] [place] [phone] (Wo rk) 08/16/2022 Office Visit Cardiology Timothy Smith MD [address] [place] [phone] (Wo rk) documented as of this encounter Visit Diagnoses Not on filedocumented in this encounter Care Teams Wet And Dry Sugar Bin Operator Relationship Specialty Start Date End Date Slava Hernandez PA-C PCP - General Physician Machine Cementer 07/02/18 06/29/[address] [facility] [id number] [place] [address] [place] [address] documented as of this encounter
--- OUTSIDE RECORDS SUMMARY | 2022-06-22 08:55 | XMS_ITS | Encounter Summary ---
:1940 Author Organization [place] Address [address] [place] [address] Care Team Providers Name Role Phone Slava Hernandez PA-C Primary Care Provider Reason for Referral - Closed Specialty Diagnoses / Procedures Referred By Contact Refer red To Contact Diagnoses Persistent atrial fibrillation (H) Ankur Smith MD [address] [place] [id number] Referral ID Status Reason Start Date Expiration Date Visits Requ ested Visits Authorized [id number] Closed 01/01/2019 01/01/2020 1 1 Reason for Visit Reason Comments Edema Cardiomyopathy Encounter Details Date Type Department Care Team Description 01/01/2019 Office Visit [facility] Ankur Smith MD ACS (acute coronary syndrome) (H) (Prima ry Dx); [facility] [place] [address] Palpitations; [address] Persistent atrial fibrillation (H) [facility] [address] [place] [address] [place] [phone] Social History Tobacco Use Types Packs/Day Years Used Date Never Smoker Smokeless Tobacco: Never Used Alcohol Use Standard Drinks/Week Comments No 0 (1 standard drink = 0.6 oz pure alcoho l) Sex Assigned at Date Recorded Not on file documented as of this encounter Last Filed Vital Signs Vital Sign Reading Time Taken Comments Blood Pressure 104/66 01/01/2019 11:18 AM CDT Pulse 70 01/01/2019 11:18 AM CDT Temperature - - Respiratory Rate - - Oxygen Saturation - - Inhaled Oxygen Concentration - - Weight 133.8 kg (295 lb) 01/01/2019 11:18 AM CDT Height 180.3 cm (5' 11) 01/01/2019 11:18 AM CDT Body Mass Index 41.14 01/01/2019 11:18 AM CDT documented in this encounter Progress Notes Ankur Smith MD - 01/01/2019 11:55 AM CDT Service Date: 01/01/2019 CLINIC NOTE HISTORY OF PRESENT ILLNESS: I saw Mr. Villa for followup of atrial fibrillation and congestive heartfailure. He is an 78-year-old white male with history of chronic atrial fibrillation and coronary artery disease with previous CABG. He had a pacemaker implanted initially for sinus node dysfunction. He has been in persistent atrial fibrillation for years. He has underlying right bundle branch block and the ventricular rate is not known to be fast. The LV function is mildly reduced. The patient has underlying chronic renal insufficiency. Over the last few years, he has been complaining of shortness of breath in the presence of chronic renal insufficiency and severe obesity. The patient previously de clined coronary angiography. He currently has no angina. Recently, he presented to our clinic with leg edema. He was started on torsemide 20 mg once a day. Since 11/28, he has lost 15 pounds. Symptomatically, he feels much better. At the present time, he has no complaints. PHYSICAL EXAMINATION: VITAL SIGNS: Blood pressure was 104/66, heart rate 70 beats per minute, body weight 295 pounds. GENERAL: The patient uses a walker for ambulation. LUNGS: Clear. CARDIAC: Rhythm was irregularly irregular. The heart sounds were normal with no murmur. ABDOMEN: Examination showed severe obesity. EXTREMITIES: He has trace bilateral leg edema. ASSESSMENT AND RECOMMENDATIONS: Mr. Villa has had significant improvement of his symptoms since initiation of torsemide. He has lost 15 pounds. The creatinine on 12/12 showed elevation up to 2.2. I would like him to have a repeat BMP in 2 weeks while on the same dose of torsemide. He may need a reduction of the dosage if the creatinine continues to elevate. During today's clinic visit, I have decidedto cut the dose of metoprolol from 100 to 50 mg once a day. When he returns to the clinic for followup in 2 weeks, he will have a redo EKG to make sure that he does not have rapid ventricular rate. cc: HANK Handley [facility] [address] [place] [address] ANKUR SMITH MD MT: CAITLYN Name: RADHA VILLA MRN: [id number] Account: [id number] : 1940 Service Date: 01/01/2019 Document: [id number] Ankur Smith MD - 01/01/2019 11:15 AM CDT HPI and Plan: See dictation Orders Placed This Encounter Procedures ??? Basic metabolic panel ??? Follow-Up with Cardiac Advanced Practice Provider ??? EKG 12-lead complete w/read (Future)- to be scheduled Orders Placed This Encounter Medications ??? metoprolol succinate ER (TOPROL-XL) 100 MG 24 hr tablet Sig: Take 0.5 tablets (50 mg) by mouth daily Dispense: 90 tablet Refill: 1 Medications Discontinued During This Encounter Medication Reason ??? acetaminophen (TYLENOL) 500 MG tablet Therapy completed ??? acetaminophen-codeine (TYLENOL #3) 300-30 MG per tablet Therapy completed ??? ondansetron (ZOFRAN ODT) 4 MG ODT tab Therapy completed ??? oxyCODONE IR (ROXICODONE) 5 MG tablet Therapy completed ??? metoprolol (TOPROL-XL) 100 MG 24 hr tablet Encounter Diagnoses Name Primary? ACS (acute coronary syndrome) (H) Yes ??? Palpitations ??? Persistent atrial fibrillation (H) CURRENT MEDICATIONS: [...] 1 tablet (20 mg) by mouth daily 60 tablet 11 ??? terazosin (HYTRIN) 5 MG capsule Take [...] on phone: None Gets together: None Attends nondenominational service: None Active member of club or organization: None Attends meetings of clubs or organizations: None Relationship status: None ??? Intimate partner violence: Fear of current or ex partner: None Emotionally abused: None Physically abused: None Forced sexual activity: None Other Topics Concern ??? Parent/sibling w/ CABG, ME or angioplasty before 65F 55M? No ??? [...] for sleep apnea;CPAP;dyspnea on exertion;shortness of breath some improvement to SOB Cardiovascular: Negative for;palpitations;chest pain;dizziness;lightheadedness Positive for;edema wears compression stockings, has helped Gastroenterology: Negative melena;hematochezia Genitourinary: Negative Musculoskeletal: Positive for arthritis;joint pain;nocturnal cramping Neurologic: Negative Psychiatric: Negative Heme/Lymph/Imm: Negative Endocrine: Positive for diabetes Physical Exam: Vitals: BP 104/66 Pulse 70 Ht 1.803 m (5' 11) Wt 133.8 kg (295 lb) BMI 41.14 kg/m?? Constitutional: cooperative, alert and oriented, well developed, well nourished, in no acute distress morbidly obese uses a walker Skin: warm and dry to the touch pacemaker incision in the left infraclavicular area was well-healed Head: normocephalic, no masses or lesions Eyes: pupils equal and round wear eye glasses Lymph: ENT: no pallor or cyanosis Neck: JVP normal JVP >12;hepatojugular reflux unable to assess JVP due to body habitus Respiratory: clear to auscultation Bibasilar crackles Cardiac: regular rhythm irregularly irregular rhythm pulses full and equal pulses below the femoral arteries are diminished GI: abdomen soft obese distended and firm Extremities and Muscular Skeletal: no deformities, clubbing, cyanosis, erythema observed bilateral LE edema;2+;3+ Neurological: no gross motor deficits Psych: Alert and Oriented x 3 CC Slava Hernandez PA-C [facility] [address] [place] [address] documented in this encounter Plan of Treatment Upcoming Encounters Date Type Specialty Care Team Description 06/26/2022 Ancillary Procedure Cardiology Seng Canchola MD [address] [place] [phone] (Fiorella olvera) 08/16/2022 Ancillary Procedure Cardiology Ankur Smith MD [address] [place] [phone] (Fiorella olvera) 08/16/2022 Office Visit Cardiology Ankur Smith MD [address] [place] [phone] (Fiorella olvera) Scheduled Referrals Name Type Priority Associated Diagnoses Order S chedule Follow-Up with Referral Routine Persistent atrial Expected : 01/15/2019 Cardiac Advanced fibrillation (H) (Approx imate), Practice Provider Expires: 0 01/01/2020 documented as of this encounter Results (ABNORMAL) Basic metabolic panel (01/22/2019 9:[address] [facility]) Analysis Performed At [facility] Time Signature Sodium 140 133 - 144 01/22/2019 [facility] mmol/L 10:08 AM [facility] Potassium 4.1 3.4 - 5.3 01/22/2019 [facility] mmol/L 10:08 AM [facility] Chloride 105 94 - 109 01/22/2019 [facility] mmol/L 10:08 AM [facility] Carbon Dioxide 31 20 - 32 01/22/2019 [facility] mmol/L 10:17 AM [facility] Anion Gap 4 3 - 14 01/22/2019 [facility] mmol/L 10:17 AM [facility] Glucose 102 (H) 70 - 99 01/22/2019 [facility] mg/dL 10:17 AM [facility] Urea Nitrogen 37 (H) 7 - 30 01/22/2019 [facility] mg/dL 10:17 AM [facility] Creatinine 1.63 (H) 0.66 - 01/22/2019 [facility] 1.25 mg/dL 10:17 AM [facility] GFR Estimate 39 (L) >60 01/22/2019 [facility] mL/min/{1. 10:17 AM COUNT INCLUDES THE [facility] 73_m2} HOSPITAL Comment: Non GFR Calc Starting 09/17/2018, serum creatinine ba sed estimated GFR (eGFR) will be calculated using the Chronic Kidney Dise [facility] Epidemiology Collaboration (CKD-EPI) equation. GFR Estimate If 45 (L) >60 mL/min/{1.73_m2} 01/22/2019 10:[address] [facility] Comment: GFR Calc Starting 09/17/2018, serum creatinine ba sed estimated GFR (eGFR) will be calculated using the Chronic Kidney Dise [facility] Epidemiology Collaboration (CKD-EPI) equation. Calcium 9.7 8.5 - 10.1 mg/dL 01/22/2019 10:17 AM [facility] Specimen Anatomical Collection Method Collection Time Receive d Time (Source) Location / / Volume Laterality Blood specimen 01/22/2019 9:14 AM 019 9:17 (specimen) CDT AM CDT Ankur Smith MD LAB - BLOOD ORDERABLES Performing Organization Address City/State/ZIP Code Phon e Number M [facility] [address] [place], [place] [address] [facility] [address] [place], [place] [address] [place] [address] documented in this encounter Visit Diagnoses Diagnosis ACS (acute coronary syndrome) (H) - Prim arnie Intermediate coronary syndrome Palpitations Persistent atrial fibrillation (H) Atrial fibrillation documented in this encounter Care Teams Rack Puncher Relationship Specialty Start Date End Date Slava Hernandez PAIlanaC PCP - General Physician Radiation Officer 07/02/18 06/29/21 [facility] [address] [place] [address] documented as of this encounter
--- OUTSIDE RECORDS SUMMARY | 2022-06-22 08:55 | XMS_ITS | Encounter Summary ---
:1940 Author Organization [place] Address [address] [facility] [place] [address] Care Team Providers Name Role Phone Slava Hernandez PA-C Primary Care Provider Encounter Details Date Type Department Care Team Description 11/28/2018 Travel Social History Tobacco Use Types Packs/Day [...] [address] [place] [phone] (Wo rk) 08/16/2022 Ancillary Procedure Cardiology Timothy Smith MD [address] [place] [phone] (Wo rk) 08/16/2022 Office Visit Cardiology Timothy Smith MD [address] [place] [phone] (Wo rk) documented as of this encounter Visit Diagnoses Not on filedocumented in this encounter Care Teams Director Of Income Tax Relationship Specialty Start Date End Date Slava Hernandez PA-C PCP - General Physician Relay Telegrapher 07/02/18 06/29/21 [facility] [id number] [place] [address] [place] [address] documented as of this encounter
--- OUTSIDE RECORDS SUMMARY | 2022-06-22 08:55 | XMS_ITS | Encounter Summary ---
:1940 Author Organization [place] Address [address] [place] [address] Care Team Providers Name Role Phone Slava Hernandez PA-C Primary Care Provider Encounter Details Date Type Department Care Team Description 11/18/2018 Orders Only [facility] Heart Paro xysmal atrial fibrillation (H); [facility] Cardiomyopathy, unspecified type (H); [address] [address] Ischemi c cardiomyopathy [address] [place] [address] Social History Tobacco Use Types [...] Procedure Cardiology Seng Canchola MD [address] [place] [phone] (Wo rk) 08/16/2022 Ancillary Procedure Cardiology Timothy Smith MD [address] [place] [address] (Wo rk) 08/16/2022 Office Visit Cardiology Timothy Smith MD [address] [place] [address] (Wo rk) documented as of this encounter Procedures Procedure Name Priority Date/Time Associated Diagnosis Comme nts BASIC METABOLIC Routine 11/18/2018 10:02 Paroxysmal atrial Res ults for this PANEL AM [facility] fibrillation (H) procedure are in Cardiomyopathy, the results unspecified type (H) section. Ischemic cardiomyopathy documented in this encounter Results (ABNORMAL) Basic metabolic panel (11/18/2018 10:02 AM [facility]) Analysis Performed At [facility] Time Signature Sodium 144 133 - 144 11/18/2018 [facility] mmol/L 10:39 AM [facility] Potassium 3.8 3.4 - 5.3 11/18/2018 [facility] mmol/L 10:39 AM [facility] Chloride 105 94 - 109 11/18/2018 [facility] mmol/L 10:39 AM [facility] Carbon Dioxide 33 (H) 20 - 32 11/18/2018 [facility] mmol/L 10:46 AM [facility] Anion Gap 6 3 - 14 11/18/2018 [facility] mmol/L 10:46 AM [facility] Glucose 146 (H) 70 - 99 11/18/2018 [facility] mg/dL 10:46 AM [facility] Urea Nitrogen 30 7 - 30 11/18/2018 [facility] mg/dL 10:46 AM [facility] Creatinine 1.35 (H) 0.66 - 11/18/2018 [facility] 1.25 mg/dL 10:46 AM [facility] GFR Estimate 49 (L) >60 11/18/2018 [place] mL/min/{1. 10:46 AM [facility] 73_m2} HOSPITAL Comment: Non GFR Calc Starting 09/17/2018, serum creatinine ba sed estimated GFR (eGFR) will be calculated using the Chronic Kidney Dise [facility] Epidemiology Collaboration (CKD-EPI) equation. GFR Estimate If 57 (L) >60 mL/min/{1.73_m2} 11/18/2018 10:[address] [facility] Comment: GFR Calc Starting 09/17/2018, serum creatinine ba sed estimated GFR (eGFR) will be calculated using the Chronic Kidney Dise [facility] Epidemiology Collaboration (CKD-EPI) equation. Calcium 9.2 8.5 - 10.1 mg/dL 11/18/2018 10:46 AM [facility] Specimen Anatomical Collection Method Collection Time Receive d Time (Source) Location / / Volume Laterality Blood specimen 11/18/2018 10: 9 (specimen) AM [facility] 10:07 AM [facility] Tammy Montenegro PA-C LAB - BLOOD ORDERABLES Performing Organization Address City/State/ZIP Code Phon e Number M [facility] [address] [place], [place] [address] [facility] [address] [phone] documented in this encounter Visit Diagnoses Diagnosis Paroxysmal atrial fibrillation (H) Atrial fibrillation Cardiomyopathy, unspecified type (H) Ischemic cardiomyopathy Other specified forms of chronic ischemi c heart disease documented in this encounter Care Teams Senior Coldfusion Developer Relationship Specialty Start Date End Date Slava Hernandez PA-C PCP - General Physician Serging Machine Operator Automatic 07/02/18 06/29/21 [facility] [id number] [place] [address] documented as of this encounter
--- OUTSIDE RECORDS SUMMARY | 2022-06-22 08:55 | XMS_ITS | Encounter Summary ---
:1940 Author Organization [place] Address [address] [place] [address] Care Team Providers Name Role Phone Slava Hernandez PA-C Primary Care Provider Reason for Visit CV Testing - Closed Specialty Diagnoses / Procedures Referred By Contact Refer red To Contact Diagnoses Pacemaker Basil Guadalupe MD Procedures Cardiac Device Check - Remote [address] [place] [address] [place] [id number] Referral ID Status Reason Start Date Expiration Date Visits Requ ested Visits Authorized [id number] Closed 11/14/2018 11/14/2019 1 1 Encounter Details Date Type Department Care Team Description 11/14/2018 Ancillary Procedure [facility] Basil Guadalupe [facility] [address] [facility] [address] [facility] [address] [place] [address] [place] [phone] Social History Tobacco Use Types Packs/Day Years [...] [address] [place] [address] [place] [id number] (Wo rk) 08/16/2022 Ancillary Procedure Cardiology Timothy Smith MD [address] [place] [id number] (Wo rk) 08/16/2022 Office Visit Cardiology Timothy Smith MD [address] [place] [id number] (Wo rk) documented as of this encounter Procedures Procedure Name Priority Date/Time Associated Diagnosis Comme nts COURTESY DEVICE Routine 11/14/2018 11:19 AM Pacemaker Resul ts for this CHECK DISPATCHER ELECTRIC POWER procedure are i n the results section. documented in this encounter Results COURTESY DEVICE CHECK (11/14/2018 11:19 AM DISPATCHER ELECTRIC POWER) Component Value Ref Test Analysis Performed Pathologis t Range Method Time At Signature Date Time [id number] [employer] Interrogation Session Implantable [employer] Pulse Generator Teasel Setter Implantable L121 ESSENTIO EL [employer] Pulse Generator Model Implantable [id number] [employer] Pulse Generator Serial Number Type Remote [facility] Interrogation Session Clinic Name [facility] Implantable Pacemaker [facility] Pulse Generator Type Implantable [id number] [employer] Pulse Generator Implant Date Implantable Lead [facility] RAUL Teasel Setter Implantable Lead 2088TC Tendril MEDTRONI C Model STS Implantable Lead [id number] [employer] Serial Number Implantable Lead [id number] [employer] Implant Date Implantable Lead Bipolar Lead [facility] Polarity Type Implantable Lead UNKNOWN [employer] Location Detail 1 Implantable Lead Right Atrium [employer] Location Implantable Lead [facility] [facility] [employer] RAUL Teasel Setter Implantable Lead 2088TC Tendril MEDTRONI C Model STS Implantable Lead [id number] [employer] Serial Number Implantable Lead [id number] [employer] Implant Date Implantable Lead Bipolar Lead [...] Channel Check Lead [employer] Status Lead Channel 370 ohm [facility] Impedance Value Lead Channel 504 ohm [employer] Impedance Value Lead Channel 0.8 V [employer] Pacing Threshold Amplitude Lead Channel 0.4 ms [employer] Pacing Threshold Pulse Width Battery Date [id number] [employer] Time of Measurements Battery Status Beginning of [employer] Service Battery 108 mo [employer] Remaining Longevity Battery 100 % [employer] Remaining Percentage Brandon Statistic [id number] [employer] Date Time Start Brandon Statistic [id number] [facility] Date Time End Brandon Statistic 0 % [facility] RA Percent Paced Brandon Statistic 48 % [employer] RV Percent Paced Atrial Tachy [id number] [employer]IC Statistic Date Time Start Atrial Tachy 21592898483029 [employer] Statistic Date Time End Atrial Tachy 80 % [employer] Statistic AT/AF [place] Percent Episode 497 [employer] Statistic Recent Count Episode AT/AF [facility] Statistic Type Category Episode AF [facility] Statistic Vendor Type Category Episode 1 [facility] Statistic Recent Count Episode SVT [facility]TR[facility] Statistic Type Category Episode SVT [facility] Statistic Vendor Type Category Episode 19 [facility] Statistic Recent Count Episode VT [facility]TR[facility]IC Statistic Type Category Episode NSVT [facility] Statistic Vendor Type Category Episode 0 [facility]IC Statistic Recent Count Episode VT [facility]TR[facility]IC Statistic Type Category Episode VT [facility] Statistic Vendor Type Category Episode [id number] [facility] Statistic Recent Date Time Start Episode [id number] [facility] Statistic Recent Date Time End Episode [id number] [facility] Statistic Recent Date Time Start Episode [id number] [facility] Statistic Recent Date Time End Episode [id number] [facility] Statistic Recent Date Time Start Episode [id number] [facility] Statistic Recent Date Time End Episode [id number] [facility] Statistic Recent Date Time Start Episode [id number] [facility] Statistic Recent Date Time End Episode [id number] [facility] Identifier Episode Type Other [employer] Category Episode Date [id number] [facility] Time Episode V-1438 [facility] Identifier Episode Type VT [facility] Category Episode Date [id number] [facility] Time Episode Duration 14 s [facility]IC Episode V-1437 [facility]IC Identifier Episode Type VT [facility] Category Episode Date [id number] [facility] Time Episode Duration 12 s MEDTR[facility]IC Episode V-1436 [facility] Identifier Episode Type VT [facility] Category Episode Date [id number] [facility] Time Episode Duration 12 s MEDTR[facility]IC Episode V-1435 [facility] Identifier Episode Type VT [facility] Category Episode Date [id number] [facility] Time Episode Duration 12 s MEDTRONIC Episode V-1434 MEDTR[facility]IC Identifier Episode Type SVT [facility] Category Episode Vendor SVT [facility] Type Category Episode Date [id number] [facility] Time Episode Duration 74 s MEDTRONIC Episode V-1433 [facility]IC Identifier Episode Type VT [facility] Category Episode Date [id number] [facility] Time Episode Duration 13 s MEDTRONIC Episode V-1432 [facility]IC Identifier Episode Type VT [facility] Category Episode Date [id number] [facility] Time Episode Duration 18 s MEDTR[facility]IC Episode V-1431 [facility]IC Identifier Episode Type VT [facility]IC Category Episode Date [id number] [facility] Time Episode Duration 11 s MEDTR[facility]IC Episode V-1430 [facility]IC Identifier Episode Type VT [facility] Category Episode Date [id number] [facility] Time Episode Duration 12 s [facility]IC Episode ATR-6504 [employer] Identifier Episode Type AT/AF [facility] Category Episode Date [id number] [facility] Time Episode V-1429 [facility]IC Identifier Episode Type VT [facility] Category Episode Date [id number] [facility] Time Episode Duration 12 s MEDTR[facility]IC Episode V-1428 MED[facility]IC Identifier Episode Type VT [facility] Category Episode Date [id number] [facility] Time Episode Duration 12 s [facility] Episode APM-87 [facility] Identifier Episode Type Periodic EGM [facility] Category Episode Date [id number] [facility] Time Anatomical Region Laterality Modality Other Specimen (Source) Anatomical Collection Method Collection Time Re ceived Time Location / / Volume Laterality 11/14/2018 4:55 PM DISPATCHER ELECTRIC POWER Narrative 11/20/2018 2:33 PM DISPATCHER ELECTRIC POWER courtesy check: Pt calling to report CHF symptoms of fatiuge, weakness, decreased exercise intolerance, and ??pa lpitations. His PCP doubled his diuretic and wanted him to be seen by Dr Smith. He cannot see Dr Smith for awhile so will see Saadia Montenegro instead on 11/15/18. He sent a remote PPM transmission that showed afib with contr olled vent rate. He had 20 episodes of afib with RVR since 05/18 but none since 10/17/18. Basil Guadalupe MD [facility] ORDERABL ES documented in this encounter Visit Diagnoses Diagnosis Pacemaker Cardiac pacemaker in situ documented in this encounter Care Teams Oven Unloader Relationship Specialty Start Date End Date Slava Hernandez PA-C PCP - General Physician Translation Director 07/02/18 06/29/[address] [address] documented as of this encounter
--- OUTSIDE RECORDS SUMMARY | 2022-06-22 08:55 | XMS_ITS | Encounter Summary ---
:1940 Author Organization [place] Address [facility] [place] [address] Care Team Providers Name Role Phone Slava Hernandez PA-C Primary Care Provider Reason for Visit Reason Onset Date Comments Refill Request 12/31/2018 Tamsulosin Encounter Details Date Type Department Care Team Description 12/31/2018 Refill [facility] Shea Rivera, Refill Request [facility] [place] (Tamsulosin) [address] [place] [address] [place], [place] [address] (Wo rk) Social History Tobacco Use Types Packs/Day Years Used Date Never Smoker Smokeless Tobacco: Never Used Alcohol Use Standard Drinks/Week Comments No 0 (1 standard drink = 0.6 oz pure alcoho l) Sex Assigned at Date Recorded Not on file documented as of this encounter Miscellaneous Notes Telephone Encounter - Beverly Davis RN - 12/31/2018 9:58 AM CDT Rx e-scribed to pt's pharmacy as below. Called Don to inform. ----- Message from Afsaneh Chacon sent at 12/31/2018 7:35 AM CDT ----- Regarding: FW: Medication ----- Message ----- From: Shea Rivera PA-C Sent: 12/30/2018 4:35 PM To: Afsaneh Evaristo Chacon, # Subject: RE: Medication Please call in tamsulosin 0.4mg daily #90 4 refills and let pt know. Thanks,MH ----- Message ----- From: ChaconAfsaneh Evaristo Sent: 12/30/2018 9:51 AM To: Shea Rivera PA-C, # Subject: Medication Shea/ Nurses, Patient came in with Terazosin 5mg CAP And said he would like to switch back to Tamsulosin 0.4mg CAP. His preffered pharmacy is [facility], mail order. 90 day supply Call back if needed is [phone] Thanks! documented in this encounter Plan of Treatment Upcoming Encounters Date Type Specialty Care Team Description 06/26/2022 Ancillary Procedure Cardiology Seng Canchola MD [address] [place] [address] [place] [phone] (Wo rk) 08/16/2022 Ancillary Procedure Cardiology Timothy Smith MD [address] [place] [phone] (Wo rk) 08/16/2022 Office Visit Cardiology Timothy Smith MD [address] [place] [phone] (Wo rk) documented as of this encounter Visit Diagnoses Diagnosis Urinary frequency - Primary Weak urinary stream Slowing of urinary stream documented in this encounter Care Teams Data Warehouse Developer Relationship Specialty Start Date End Date Slava Hernandez PA-C PCP - General Physician Armoured Car Escort 07/02/18 06/29/21 [facility] [address] [place] [address] documented as of this encounter
--- OUTSIDE RECORDS SUMMARY | 2022-06-22 08:55 | XMS_ITS | Encounter Summary ---
:1940 Author Organization [place] Address [address] [place] [address] Care Team Providers Name Role Phone Slava Hernandez PA-C Primary Care Provider Reason for Referral Diagnostic Imaging XR - Closed Specialty Diagnoses / Procedures Referred By Contact Refer red To Contact Radiology. Diagnoses Calculus of kidney Shea Rivera PA-C Rh Xray Procedures XR KUB [[id number]] [address] [place] [address] [place], [place] [phone] Fax: Referral ID Status Reason Start Date Expiration Date Visits Requ ested Visits Authorized [id number] Closed 10/23/2018 10/23/2019 1 1 M ROOM ATTENDANT Reason for Visit Diagnostic Imaging XR - Closed Specialty Diagnoses / Procedures Referred By Contact Refer red To Contact Radiology. Diagnoses Calculus of kidney Shea Rivera PA-C Rh Xray Procedures XR KUB [[id number]] [address] [place] [address] [place], [place] [phone] Fax: Referral ID Status Reason Start Date Expiration Date Visits Requ ested Visits Authorized [id number] Closed 10/23/2018 10/23/2019 1 1 Encounter Details Date Type Department Care Team Description 10/23/2018 Hospital Encounter [facility] Miguel Shea Radhames, Calculus of kidney [facility] [address] [place], [phone] [place] [address] [phone] Social History Tobacco Use Types Packs/Day Years [...] tabletIndications: times daily Paroxysmal atrial fibrillation (H) apixaban ANTICOAGULANT Take 1 tablet (5 180 tablet 3 018 11/01/2018 (ELIQUIS) 5 MG mg) by mouth 2 tabletIndications: times daily Paroxysmal atrial fibrillation (H) celecoxib (CELEBREX) 200 Take 200 mg by 0 06/30/2021 MG capsule mouth 2 times daily furosemide (LASIX) 40 MG Take 1 tablet (40 30 tablet 3 05/0211/15/2018 tabletIndications: mg) by mouth daily Ischemic cardiomyopathy GLIPIZIDE PO Take 5 mg by mouth 0 10/0 12/2020 2 times daily (before meals) metFORMIN (GLUCOPHAGE) Take 2 tablets 60 tablet 0 6 06/30/2021 500 MG tabletIndications: (1,000 mg) by mouth Type 2 diabetes mellitus 2 times daily (with with complication (H) meals) metoprolol (TOPROL-XL) Take 1 tablet (100 90 tablet 1 10/0801/01/2019 100 MG 24 hr mg) by mouth daily tabletIndications: Palpitations nitroglycerin (NITROSTAT) Place 0.4 mg under 0 11/15/2018 0.4 MG sublingual tablet the tongue every 5 minutes as needed for chest pain For chest pain place 1 tablet under the tongue every 5 minutes for 3 doses. If symptoms persist 5 minutes after 1st dose call 911. ondansetron (ZOFRAN ODT) Take 1 tablet (4 10 tablet 0 07/0501/01/2019 4 MG ODT tab mg) by mouth every 8 hours as needed for nausea oxyCODONE IR (ROXICODONE) Take 1 tablet (5 12 tablet 0 01/201801/01/2019 5 MG tablet mg) by mouth every [...] 06/26/2022 Ancillary Procedure Cardiology Seng Canchola MD [address] [place] [address] [place] [address] (Wo rk) 08/16/2022 Ancillary Procedure Cardiology Timothy Smith MD [address] [place] [address] (Wo rk) 08/16/2022 Office Visit Cardiology Timothy Smith MD [address] [place] [address] (Wo rk) documented as of this encounter Procedures Procedure Name Priority Date/Time Associated Diagnosis Comme nts XR KUB Routine 10/23/2018 2:27 PM Calculus of kidney Res ults for this STEAM ROOM ATTENDANT procedure are i n the results section . documented in this encounter Results XR KUB [[id number]] (10/23/2018 2:27 PM STEAM ROOM ATTENDANT) Anatomical Region Laterality Modality Abdomen/Pelvis Digital Radiography Specimen (Source) Anatomical Location Collection Method / Collectio n Time Received Time / Laterality Volume Impressions 10/23/2018 2:44 PM STEAM ROOM ATTENDANT IMPRESSION: No specific evidence of the previously seen distal ureteral stone. JEFFREY PA MD Narrative 10/23/2018 2:44 PM STEAM ROOM ATTENDANT XR KUB 10/23/2018 2:27 PM HISTORY: Left [...] stone. JEFFREY PA MD Shea Rivera PA-C [facility] ORDER ANN documented in this encounter Visit Diagnoses Diagnosis Calculus of kidney documented in this encounter Care Teams Maritime Officer Relationship Specialty Start Date End Date Slava Hernandez PA-C PCP - General Physician Diet Attendant 07/02/18 06/29/21 [facility] [address] [place] [address] documented as of this encounter
--- OUTSIDE RECORDS SUMMARY | 2022-06-22 08:55 | XMS_ITS | Encounter Summary ---
:1940 Author Organization [place] Address [address] [place] [address] Care Team Providers Name Role Phone Slava Hernandez PA-C Primary Care Provider Reason for Referral CV Testing - Closed Specialty Diagnoses / Procedures Referred By Contact Refer red To Contact Diagnoses Syncope and collapse Steven Canchola, Procedures Cardiac Device Check - Remote [address] [place] [address] Referral ID Status Reason Start Date Expiration Date Visits Requ ested Visits Authorized [id number] Closed 12/10/2018 12/10/2019 1 1 Reason for Visit CV Testing - Closed Specialty Diagnoses / Procedures Referred By Contact Refer red To Contact Diagnoses Syncope and collapse Steven Canchola, Procedures Cardiac Device Check - Remote [address] [place] [id number] Referral ID Status Reason Start Date Expiration Date Visits Requ ested Visits Authorized [id number] Closed 09/01/2018 09/01/2019 1 1 Encounter Details Date Type Department Care Team Description 12/10/2018 [facility] Steven Canchola Sync ope and Procedure [facility] MD Jose collapse [facility] [address] [facility] [address] [facility] [address] [place] [address] [place] [phone] (Wo rk) [phone] [phone] Social History Tobacco Use Types Packs/Day Years [...] [address] [place] [phone] (Wo rk) 08/16/2022 Ancillary Procedure Cardiology Timothy Smith MD [address] [place] [id number] (Wo rk) 08/16/2022 Office Visit Cardiology Timothy Smith MD [address] [place] [id number] (Wo rk) documented as of this encounter Procedures Procedure Name Priority Date/Time Associated Comments Diagnosis INTERROGATION DEVICE Routine 12/10/2018 10:02 Syncope and Res ults for this EVAL REMOTE PACER UP AM CDT collapse procedu re are in TO 90 DAYS the results section. documented in this encounter Results INTERROGATION DEVICE EVAL REMOTE PACER UP TO 90 DAYS (03/18/2019 2:04 PM CDT) Component Value Ref Test Analysis Performed Pathologis t Range Method Time At Signature Date Time [id number] [employer] Interrogation Session Implantable [employer] Pulse Generator Caddie Supervisor Implantable L121 ESSENTIO EL [employer] Pulse Generator Model Implantable [id number] [employer] Pulse Generator Serial Number Type Remote [facility] Interrogation Session Clinic Name [facility] Implantable Pacemaker [employer]IC Pulse Generator Type Implantable [id number] [employer] Pulse Generator Implant Date Implantable Lead [facility] RAUL Caddie Supervisor Implantable Lead 2088TC Tendril MEDTRONI C Model STS Implantable Lead [id number] [employer] Serial Number Implantable Lead [id number] [employer] Implant Date Implantable Lead Bipolar Lead [employer] Polarity Type Implantable Lead UNKNOWN [employer] Location Detail 1 Implantable Lead Right Atrium [facility] Location Implantable Lead [facility] RAUL Caddie Supervisor Implantable Lead 2088TC Tendril MEDTRONI C Model STS Implantable Lead [id number] [employer] Serial Number Implantable Lead [id number] [employer] Implant Date Implantable Lead Bipolar Lead [...] [employer] Pacing Threshold Pulse Width Battery Date [id number] [employer] Time of Measurements Battery Status Beginning of [employer] Service Battery 114 mo [employer] Remaining Longevity Battery 100 % [employer] Remaining Percentage Brandon Statistic [id number] [employer] Date Time Start Brandon Statistic [employer]TRONIC Date Time End Brandon Statistic 0 % [employer] RA Percent Paced Brandon Statistic 60 % [employer] RV Percent Paced Atrial Tachy [employer]IC Statistic Date Time Start Atrial Tachy [id number] [employer] Statistic Date Time End Atrial Tachy 100 % [employer] Statistic AT/AF [place] Percent Episode 1 [employer] Statistic Recent Count [...] [place] [facility] Statistic Vendor Type Category Episode [id number] [employer] Statistic Recent Date Time Start Episode [id number] [employer] Statistic Recent Date Time End Episode [id number] [employer] Statistic Recent Date Time Start Episode [id number] [employer] Statistic Recent Date Time End Episode [id number] [employer] Statistic Recent Date Time Start Episode [id number] [employer] Statistic Recent Date Time End Episode [id number] [employer] Statistic Recent Date Time Start Episode [id number] [facility] Statistic Recent Date Time End Episode APM-91 [employer] Identifier Episode Type Periodic EGM [employer] Category Episode Date [id number] [employer] Time Episode [id number]-[id number] [employer] Identifier Episode Type Other [employer] Category Episode Date [id number] [employer] Time Episode V-1456 [employer] Identifier Episode Type [place] [facility] Category Episode Date [id number] [employer] Time Episode Duration 22 s MEDTR[employer]IC Episode V-1455 [employer]IC Identifier Episode Type SVT [employer]TR[employer]IC Category Episode Vendor SVT [employer] Type Category Episode Date [id number] [facility]IC Time Episode Duration 110 s MEDTRONIC Episode V-1454 MED[employer]IC Identifier Episode Type [place] [facility]IC Category Episode Date [id number] [employer] Time Episode Duration 15 s MEDTRONIC Episode V-1453 [employer]IC Identifier Episode Type [place] [facility]TR[facility]IC Category Episode Date [id number] [employer]IC Time Episode Duration 21 s MEDTRONIC Episode V-1452 MED[employer]IC Identifier Episode Type [place] [facility]IC Category Episode Date [id number] [employer] Time Episode Duration 21 s MEDTRONIC Episode V-1451 [employer]IC Identifier Episode Type VT [facility]IC Category Episode Date [id number] [employer] Time Episode Duration 15 s MEDTRONIC Episode V-1450 [employer]IC Identifier Episode Type [place] [facility]IC Category Episode Date [id number] [employer]IC Time Episode Duration 17 s MEDTRONIC Episode V-1449 [employer]IC Identifier Episode Type [place] [facility]IC Category Episode Date [id number] [facility]IC Time Episode Duration 13 s MEDTRONIC Episode V-1448 [employer]IC Identifier Episode Type [place] [facility] Category Episode Date [id number] [facility] Time Episode Duration 19 s [facility]IC Episode ATR-6506 [employer] Identifier Episode Type AT/AF [facility] Category Episode Date [id number] [facility] Time Episode V-1447 [facility]IC Identifier Episode Type [place] [facility] Category Episode Date [id number] [facility] Time Episode Duration 17 s MEDTR[employer]IC Episode V-1446 [employer]IC Identifier Episode Type [place] [facility] Category Episode Date [id number] [employer] Time Episode Duration 14 s [employer] Anatomical Region Laterality Modality Other Specimen (Source) Anatomical Collection Method Collection Time Re ceived Time Location / / Volume Laterality 03/18/2019 5:41 AM CDT Narrative 03/19/2019 2:34 PM CDT [employer] L121 Essentio EL (D) Remote PPM Device CheckAP: 0%COLLECTION OFFICER: 60%Mode: DDDRPresenting Rhythm: Chronic Afib and VPHeart Rate: Adequate heart rates per histogram Sensing: stabl e Pacing Threshold: RA: not preformed RV: stable Impedance: stable B attery Status: 9.5 years remaining Atrial Arrhythmia: Chronic Afib, taking Eliquis.Ventricular Arrhythmia: 17 VHRs. 3 EGMs available show RVR, longest episode lasting 1 minute 50 seconds, rates: 100-180bpm. Reviewed wit divya Lee RN. Care Plan: FU latitude q 3 months. Gave results and ne xt transmission date over the phone to patient. Jaleesa CVTI have revi ewed and interpreted the device interrogation, settings, programming and nurse's summary. The device is functioning within normal device paramet ers. I agree with the current findings, assessment and plan. Steven Canchola MD [facility] INTERROGATION DEVICE EVAL REMOTE PACER UP TO 90 DAYS (12/10/2018 10:02 AM CDT) Component Value Ref Test Analysis Performed Pathologis t Range Method Time At Signature Date Time [id number] [employer] Interrogation Session Implantable [employer] Pulse Generator Caddie Supervisor Implantable L121 ESSENTIO EL [employer]IC Pulse Generator Model Implantable [id number] [employer] Pulse Generator Serial Number Type Remote [facility] Interrogation Session Clinic Name [facility] Implantable Pacemaker [employer] Pulse Generator Type Implantable [id number] [employer]IC Pulse Generator Implant Date Implantable Lead [facility] RAUL Caddie Supervisor Implantable Lead 2087TC Tendril MEDTRONI C Model STS Implantable Lead [id number] [employer] Serial Number Implantable Lead [id number] [employer]IC Implant Date Implantable Lead Bipolar Lead [employer] Polarity Type Implantable Lead UNKNOWN [employer] Location Detail 1 Implantable Lead Right Atrium [facility] Location Implantable Lead [facility] RAUL Caddie Supervisor Implantable Lead 2087TC Tendril MEDTRONI C Model STS Implantable Lead [id number] [employer] Serial Number Implantable Lead [id number] MEDTRONIC [...] Channel Check Lead [employer]IC Status Lead Channel 384 ohm [facility]IC Impedance Value Lead Channel 497 ohm [employer] Impedance Value Lead Channel 0.8 V [employer] Pacing Threshold Amplitude Lead Channel 0.4 ms [employer] Pacing Threshold Pulse Width Battery Date [id number] [employer] Time of Measurements Battery Status Beginning of [employer] Service Battery 102 mo [employer] Remaining Longevity Battery 97 % [employer] Remaining Percentage Brandon Statistic [id number] [employer]IC Date Time Start Brandon Statistic [id number] [employer] Date Time End Brandon Statistic 0 % [employer] RA Percent Paced Brandon Statistic 71 % [employer] RV Percent Paced Atrial Tachy [id number] MEDTRONIC Statistic Date Time Start Atrial Tachy [id number] [employer]IC Statistic Date Time End Atrial Tachy 100 % [facility]IC Statistic AT/AF [place] Percent Episode 0 [employer]ONIC Statistic Recent Count Episode [...] [place] MEDTR[facility]IC Statistic Vendor Type Category Episode [id number] [employer]IC Statistic Recent Date Time Start Episode [id number] [employer]IC Statistic Recent Date Time End Episode [id number] [employer]IC Statistic Recent Date Time Start Episode [id number] [employer]TRONIC Statistic Recent Date Time End Episode [id number] [employer]IC Statistic Recent Date Time Start Episode [id number] [facility]TRONIC Statistic Recent Date Time End Episode [id number] [employer]TR[employer]IC Statistic Recent Date Time Start Episode [id number] [employer]ONIC Statistic Recent Date Time End Episode APM-90 [facility]IC Identifier Episode Type Periodic EGM [facility]IC Category Episode Date [id number] [employer]IC Time Episode RVAT-1695 [employer]IC Identifier Episode Type Other [employer]IC Category Episode Date [id number] [employer]IC Time Episode V-1440 MEDTRONIC Identifier Episode Type [place] [facility]IC Category Episode Date [id number] [employer]IC Time Episode Duration 12 s MEDTR[employer]IC Episode V-1439 MED[employer]IC Identifier Episode Type [place] [facility]IC Category Episode Date [id number] [employer]IC Time Episode Duration 13 s [employer]IC Anatomical Region Laterality Modality Other Specimen (Source) Anatomical Collection Method Collection Time Re ceived Time Location / / Volume Laterality 12/10/2018 5:42 AM CDT Narrative 12/11/2018 12:07 PM CDT [employer] Essentio (D) Remote PPM Device CheckAP: 0%\X090A\COLLECTION OFFICER: 71%Mode: ??DDDR ? Presenting Rhythm: AFib with VPHeart Rate: Adequate rates per histogramSensing: stable ? Pacing Threshold: stable ? Impedance: stableBattery Status: 8.5 yea rsAtrial Arrhythmia: Patient has been in AFib 100% of the time, ventricul ar rates controlled. Taking Eliquis. Ventricular Arrhythmia: 1 ventr icular high rate since last check on 11/15. EGM shows AFib with RVR lasting 13 seconds, rates peaked at 180bpm.Care Plan: F/u PPM Latitude q 3 m ont. Gave patient results over the phone. MaruCVTI have reviewed and interpreted the device interrogation, settings, programming and nurse's summary. The device is functioning within normal device paramet ers. I agree with the current findings, assessment and plan. Steven Canchola MD [facility] documented in this encounter Visit Diagnoses Diagnosis Syncope and collapse Syncope and collapse documented in this encounter Care Teams Lye Bath Operator Relationship Specialty Start Date End Date Slava Hernandez PA-C PCP - General Physician Child And Adolescent Psychiatrist 07/02/18 06/29/21 [facility] [address] [place] [address] documented as of this encounter
--- OUTSIDE RECORDS SUMMARY | 2022-06-22 08:55 | XMS_ITS | Encounter Summary ---
:1940 Author Organization [place] Address [address] [place] [address] Care Team Providers Name Role Phone Slava Hernandez PA-C Primary Care Provider Encounter Details Date Type Department Care Team Description 11/25/2018 Travel Social History Tobacco Use Types Packs/Day [...] Seng Canchola MD [address] [place] [phone] (Wo rk) 08/16/2022 Ancillary Procedure Cardiology Timothy Smith MD [address] [place] [id number] (Wo rk) 08/16/2022 Office Visit Cardiology Timothy Smith MD [address] [place] [phone] (Wo rk) documented as of this encounter Visit Diagnoses Not on filedocumented in this encounter Care Teams Battery Hand Relationship Specialty Start Date End Date Slava Hernandez PA-C PCP - General Physician Stagecraft Professor 07/02/18 06/29/21 [facility] [id number] [place] [address] [place] [address] documented as of this encounter
--- OUTSIDE RECORDS SUMMARY | 2022-06-22 08:55 | XMS_ITS | Encounter Summary ---
:1940 Author Organization [place] Address [address] [place] [address] Care Team Providers Name Role Phone Slava Hernandez PA-C Primary Care Provider Encounter Details Date Type Department Care Team Description 11/20/[address] [facility] Tammy Montenegro ACS (acute coronary Heart Clinic Patt Torres PA-C syndrome) (H) [address] [facility] [address] [facility] [address] ([facility] Dx) [facility] [address] [place] [phone] Social History Tobacco Use Types Packs/Day Years Used Date Never Smoker Smokeless Tobacco: Never Used Alcohol Use Standard Drinks/Week Comments No 0 (1 standard drink = 0.6 oz pure alcoho l) Sex Assigned at Date Recorded Not on file documented as of this encounter Progress Notes Tammy Montenegro PA-C - 11/20/2018 2:49 PM CST Pls let pt know that I reviewed echo, done due to heart failure exacerbation. * EF down a bit from last year - ~40% (had been 45-50% 06/2018, but 35-40% back in 03/2018). Overall, probably not too much different. * Still looks fluid overloaded given dilated IVC and high CVP .... Continue Lasix 40 mg BID * Inferior/inferolateral wall was sluggish, which had not previously been seen on previous echos (previously global hypokinesis). It's possible that the SVG to the PDA is closed (40-50% lesion in proximal graft noted 2015, or the VG to the OM might be down). Pay attention to any chest discomfort/use of NTG and d/w Elda at OV. If SOB not improved with diuresis, may consider stress testing. Pls add BMP to OV with Elda Mary PreciadoSaadia TENANCE DATA ANALYST Temitope Tamayo, SIENNA - 11/20/2018 2:49 PM CST Spoke to patient regarding echo results. Per Saadia Montenegro: * EF down a bit from last year - ~40% (had been 45-50% 06/2018, but 35-40% back in 03/2018). Overall, probably not too much different. * Still looks fluid overloaded given dilated IVC and high CVP .... Continue Lasix 40 mg BID * Inferior/inferolateral wall was sluggish, which had not previously been seen on previous echos (previously global hypokinesis). It's possible that the SVG to the PDA is closed (40-50% lesion in proximal graft noted 2015, or the VG to the OM might be down). Pay attention to any chest discomfort/use of NTG and d/w Elda at OV. If SOB not improved with diuresis, may consider stress testing.---SOB improved but not significant. This will be discussed at upcoming appt. Patient will also bring in dailyweights. Pls add BMP to OV with Elda--Orders placed in e-contratos for BMP and scheduling to call patient on 11/25to set up labs. SIENNA Okeefe TENANCE DATA ANALYST documented in this encounter Plan of Treatment Upcoming Encounters Date Type Specialty Care Team Description 06/26/2022 Ancillary Procedure Cardiology Seng Canchola MD [address] [place] [id number] (Wo rk) 08/16/2022 Ancillary Procedure Cardiology Timothy Smith MD [address] [place] [phone] (Wo rk) 08/16/2022 Office Visit Cardiology Timothy Smith MD [address] [place] [address] (Wo rk) documented as of this encounter Results (ABNORMAL) Basic metabolic panel (11/25/2018 10:56 AM [facility]) Analysis Performed At [facility] Time Signature Sodium 142 133 - 144 11/25/2018 [facility] mmol/L 11:18 AM [facility] Potassium 4.3 3.4 - 5.3 11/25/2018 [facility] mmol/L 11:18 AM [facility] Chloride 106 94 - 109 11/25/2018 [facility] mmol/L 11:18 AM [facility] Carbon Dioxide 33 (H) 20 - 32 11/25/2018 [facility] mmol/L 11:24 AM [facility] Anion Gap 3 3 - 14 [facility]:24 AM [facility] Glucose 131 (H) 70 - 99 11/25/2018 [facility] mg/dL 11:24 AM [facility] Urea Nitrogen 32 (H) 7 - 30 11/25/2018 [facility] mg/dL 11:24 AM [facility] Creatinine 1.43 (H) 0.66 - 11/25/2018 [facility] 1.25 mg/dL 11:24 AM [facility] GFR Estimate 46 (L) >60 11/25/2018 [facility] mL/min/{1. 11:24 AM [facility] 73_m2} HOSPITAL Comment: Non GFR Calc Starting 09/17/2018, serum creatinine ba sed estimated GFR (eGFR) will be calculated using the Chronic Kidney Dise [facility] Epidemiology Collaboration (CKD-EPI) equation. GFR Estimate If 53 (L) >60 mL/min/{1.73_m2} 11/25/2018 11:24 AM [facility] Comment: GFR Calc Starting 09/17/2018, serum creatinine ba sed estimated GFR (eGFR) will be calculated using the Chronic Kidney Dise [facility] Epidemiology Collaboration (CKD-EPI) equation. Calcium 9.2 8.5 - 10.1 mg/dL 11/25/2018 11:24 AM MAINTENANCE DATA ANALYST [facility] Specimen Anatomical Collection Method Collection Time Receive d Time (Source) Location / / Volume Laterality Blood specimen 11/25/2018 10:56 9 (specimen) AM MAINTENANCE DATA ANALYST 10:59 AM MAINTENANCE DATA ANALYST Tammy Montenegro PA-C LAB - BLOOD ORDERABLES Performing Organization Address City/State/ZIP Code Phon [place] Number [place] [address] [address] [address] [place] [address] [phone] documented in this encounter Visit Diagnoses Diagnosis ACS (acute coronary syndrome) (H) - Prim arnie Intermediate coronary syndrome documented in this encounter Care Teams Repairer Typewriter Relationship Specialty Start Date End Date Slava Hernandez PA-C PCP - General Physician Winter Sports Manager 07/02/18 06/29/21 [facility] [id number] [place] [address] documented as of this encounter
--- OUTSIDE RECORDS SUMMARY | 2022-06-22 08:55 | XMS_ITS | Encounter Summary ---
:1940 Author Organization [place] Address [address] [place] [address] Care Team Providers Name Role Phone Slava Hernandez PA-C Primary Care Provider Encounter Details Date Type Department Care Team Description 11/18/2018 Travel Social History Tobacco Use Types Packs/Day [...] [address] [place] [phone] (Wo rk) 08/16/2022 Ancillary Procedure Cardiology Timothy Smith MD [address] [place] [phone] (Wo rk) 08/16/2022 Office Visit Cardiology Timothy Smith MD [address] [place] [phone] (Wo rk) documented as of this encounter Visit Diagnoses Not on filedocumented in this encounter Care Teams Filler Blender Relationship Specialty Start Date End Date Slava Hernandez PA-C PCP - General Physician Interlocker Maintainer 07/02/18 06/29/21 [facility] [id number] [place] [address] [place] [address] documented as of this encounter
--- OUTSIDE RECORDS SUMMARY | 2022-06-22 08:56 | XMS_ITS | Encounter Summary ---
:1940 Author Organization [place] Address [address] [place] [address] Care Team Providers Name Role Phone [facility], [facility] Primary Care Provider [phone] Reason for Visit Reason Onset Date Comments Clinic Care Coordination - Follow-up 05/31/2018 Encounter Details Date Type Department Care Team Description 05/31/2018 Telephone [facility] Temitope Tamayo, Clinic Care Coordination Clinic Patt RN - Follow-up [address] [facility] [address] [place] [phone] Social History Tobacco Use Types Packs/Day Years Used Date Never Smoker Smokeless Tobacco: Never Used Alcohol Use Standard Drinks/Week Comments No 0 (1 standard drink = 0.6 oz pure alcoho l) Sex Assigned at Date Recorded Not on file documented as of this encounter Miscellaneous Notes Telephone Encounter - Temitope Tamayo RN - 05/31/2018 4:27 PM CDT Spoke to patient regarding follow up appt scheduled 07/03 please see other telephone enc. Duplicate. documented in this encounter Plan of Treatment Upcoming Encounters Date Type Specialty Care Team Description 06/26/2022 Ancillary Procedure Cardiology Seng Canchola MD [address] [facility] [address] [place] [phone] (Wo rk) 08/16/2022 Ancillary Procedure Cardiology Timothy Smith MD [address] [place] [address] (Wo rk) 08/16/2022 Office Visit Cardiology Timothy Smith MD [address] [place] [address] (Wo rk) documented as of this encounter Visit Diagnoses Not on filedocumented in this encounter Care Teams Stylist Apprentice Relationship Specialty Start Date End Date [facility], [facility] PCP - General 01/16/18 07/01/18 [address] [place] [address] documented as of this encounter
--- OUTSIDE RECORDS SUMMARY | 2022-06-22 08:56 | XMS_ITS | Encounter Summary ---
:1940 Author Organization [place] Address [facility] [place] [address] Care Team Providers Name Role Phone Clinic, [facility] Primary Care Provider Reason for Visit Reason Onset Date Comments Refill Request 05/07/2018 needs a bridge to [place]-order script-sent to [facility] Encounter Details Date Type Department Care Team Description 05/07/2018 Refill [facility] Zarina Smith MD Refill Request (needs a Clinic Patt [address] bridge to mail-order [address] [facility] [address] script-sent to [employer] [facility]) [address] [place] [address] [place] [phone] [phone] Social History Tobacco Use Types Packs/Day Years [...] [address] [place] [phone] (Wo rk) 08/16/2022 Ancillary Procedure Cardiology Timothy Smith MD [address] [place] [phone] (Wo rk) 08/16/2022 Office Visit Cardiology Timothy Smith MD [address] [place] [address] (Wo rk) documented as of this encounter Visit Diagnoses Diagnosis Persistent atrial fibrillation (H) Atrial fibrillation documented in this encounter Care Teams Electrocardiographic Technician Relationship Specialty Start Date End Date [facility], Vinny Jaimes PCP - General 01/16/18 07/01/18 [address] [address] [place] [phone] documented as of this encounter
--- OUTSIDE RECORDS SUMMARY | 2022-06-22 08:56 | XMS_ITS | Encounter Summary ---
:1940 Author Organization [facility] Address [address] [place] [address] Care Team Providers Name Role Phone [facility], [facility] Primary Care Provider [phone] Encounter Details Date Type Department Care Team Description 06/19/2018 Documentation Only [facility] Heart Outside, [facility] [address] [facility] [address] [place] [phone] Social History [...] MD [address] [place] [address] [place] [id number] (Wo rk) 08/16/2022 Ancillary Procedure Cardiology Timothy Smith MD [address] [place] [id number] (Wo rk) 08/16/2022 Office Visit Cardiology Timothy Smith MD [address] [place] [id number] (Wo rk) documented as of this encounter Procedures Procedure Name Priority Date/Time Associated Diagnosis Comme nts BASIC METABOLIC PANEL Routine 06/13/2018 Result s for this procedure are i n the results section . documented in this encounter Results (ABNORMAL) Basic metabolic panel (06/13/2018) [facility] gist Method Time Signature Sodium 138 135 - 145 [facility] mmol/L [facility] Potassium 4.6 3.5 - 5.0 [facility] mmol/L [facility] Chloride 103 98 - 110 [facility] mmol/L [facility] Carbon Dioxide 25 21 - 31 [facility] mmol/L [facility] Anion Gap 10 5 - 18 [facility] mmol/L [facility] Glucose 184 (A) 65 - 99 [facility] mg/dL [facility] Urea Nitrogen 34 (A) 8 - 25 [facility] mg/dL [facility] Creatinine 1.34 (A) 0.72 - [facility] 1.25 mg/dL [facility] Calcium 10 8.5 - 10.5 [facility] mg/dL [facility] GFR Estimate 51 (A) 60 [facility] ml/min/1.7 [facility] 3m2 [facility]OR[facility]ORY GFR Estimate If >60 60 [facility] Black ml/min/1.7 [facility] 3m2 LABOR[facility]ORY Specimen (Source) Anatomical Location Collection Method / Collectio n Time Received Time / Laterality Volume Blood specimen 06/13/2018 (specimen) Patient Reported LAB - BLOOD ORDERABLES Performing Organization Address City/State/ZIP Code Phon e Number [employer] [facility] [address] [place] [address] LABORATORY [address] documented in this encounter Visit Diagnoses Not on filedocumented in this encounter Care Teams Foxing Closer Relationship Specialty Start Date End Date [facility] [place] PCP - General 01/16/18 07/01/18 [id number] [place] [phone] documented as of this encounter
--- OUTSIDE RECORDS SUMMARY | 2022-06-22 08:56 | XMS_ITS | Encounter Summary ---
:1940 Author Organization [facility] Address [address] [place] [address] Care Team Providers Name Role Phone Slava Hernandez PA-C Primary Care Provider Reason for Visit Reason Comments Pacemaker Check PPM Latitude NXT Encounter Details Date Type Department Care Team Description 08/27/2018 Allied Health/Nurse [facility] Pac emaker Check (PPM Visit [facility] [place] Latitude NXT) [address] [place] [address] [address] [place] [phone] Social History Tobacco Use Types Packs/Day Years Used Date Never Smoker Smokeless Tobacco: Never Used Alcohol Use Standard Drinks/Week Comments No 0 (1 standard drink = 0.6 oz pure alcoho l) Sex Assigned at Date Recorded Not on file documented as of this encounter Progress Notes Sary Riojas - 08/27/2018 4:30 PM CST [employer] EL L121 (D) Remote PPM Device Check AP: 0% SYSTEM OPERATION SUPERINTENDENT: 41% Mode: DDDR Presenting Rhythm: Afib with SYSTEM OPERATION SUPERINTENDENT Heart Rate: histogram shows good rate variation Sensing: stable Pacing Threshold: RA: not performed RV: stable Impedance: stable Battery Status: 9.5 years remaining 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 Controlled vent response while in mode switch. Taking Eliquis and Metoprolol. Ventricular Arrhythmia: none Care Plan: F/U Latitude NXT q 3 month. Transferred pt to scheduling to arrange OV in October. Gave results and next transmission date over the phone to pt. Brannonson CVT SFER PUMPER documented in this encounter Plan of Treatment Upcoming Encounters Date Type Specialty Care Team Description 06/26/2022 Ancillary Procedure Cardiology Seng Canchola MD [address] [place] [address] [place] [address] (Wo rk) 08/16/2022 Ancillary Procedure Cardiology Timothy Smith MD [address] [place] [address] (Wo rk) 08/16/2022 Office Visit Cardiology Timothy Smith MD [address] [place] [id number] (Wo rk) documented as of this encounter Procedures Procedure Name Priority Date/Time Associated Diagnosis Comme [facility] PM DEVICE Routine 08/27/2018 10:09 AM Cardiac pacemaker in INTERROGATE REMOTE, UP TRANSFER PUMPER situ TO 90 DAYS, LEAD/LEADLESS HC INTERR DEVICE EVAL Routine 08/27/2018 Cardiac pacemaker i n REMOTE, PM/LDLS PM/ICD, situ UP TO 90 DAYS documented in this encounter Results INTERROGATION DEVICE EVAL REMOTE, PACER/ICD (63258) (08/27/2018) Narrative This result has an attachment that is no t available. Steven Canchola MD PROCEDURES documented in this encounter Visit Diagnoses Diagnosis Cardiac pacemaker in situ - Primary documented in this encounter Care Teams Front Desk Representative Relationship Specialty Start Date End Date Slava Hernandez PA-C PCP - General Physician Gear Grinding Machine Operator 07/02/18 06/29/21 [facility] [address] [place] [address] documented as of this encounter
--- OUTSIDE RECORDS SUMMARY | 2022-06-22 08:56 | XMS_ITS | Encounter Summary ---
:1940 Author Organization [facility] Address [address] [place] [address] Care Team Providers Name Role Phone Slava HernandezC Primary Care Provider Reason for Visit Reason Comments Abdominal Pain Encounter Details Date Type Department Care Team Description 07/04/2018 - Emergency [facility] Essie Sanchez Nephr olithiasis 07/05/2018 [facility] Emergency Dep t MD Tamanna [address] [facility]YS[facility] [place], [place] [id number] [address] [facility] [phone] [place], [place] [address] (Wo rk) Social History Tobacco Use Types Packs/Day Years Used Date Never Smoker Smokeless Tobacco: Never Used Alcohol Use Standard Drinks/Week Comments No 0 (1 standard drink = 0.6 oz pure alcoho l) Sex Assigned at Date Recorded Not on file documented as of this encounter Last Filed Vital Signs Vital Sign Reading Time Taken Comments Blood Pressure 123/69 07/04/2018 10:53 PM CDT Pulse - - Temperature 36.4 ??C (97.5 ??F) 07/04/2018 10:40 PM CDT Respiratory Rate 16 07/04/2018 10:40 PM CDT Oxygen Saturation 93% 07/05/2018 2:19 AM CDT Inhaled Oxygen Concentration - - Weight 133.8 kg (295 lb) 07/04/2018 10:42 PM CDT Height - - Body Mass Index 41.14 07/02/2018 9:22 AM CDT documented in this encounter Discharge Instructions Discharge Essie Aguilar MD - 07/05/2018 2:18 AM CDT Discharge Instructions Kidney Stones Kidney stones are a common problem that can cause a lot of pain but fortunately are usually not dangerous. Kidney stones form in the kidney and then can cause a blockage (obstruction) of the flow of urine from the kidney which leads to pain. Most patients can manage kidney stones at home (without a hospital stay). However, sometimes your condition may be worse than it seemed at first, or may get worse with time. Most kidney stones will pass on their own, but occasionally stones may need to be removed by an urologist. Generally, every Emergency Department visit should have a follow-up clinic visit with either a primary or a specialty clinic/provider. Please follow-up as instructed by your emergency provider today. Return to the Emergency Department if: ??? Your pain is not controlled despite the medications provided or recommended. ??? You are vomiting (throwing up) and cannot keep fluids or medications down. ? ? You develop a fever (>100.4??F). ??? You feel much more ill or develop new symptoms. What can I do to help myself? Be sure to drink plenty of fluids. ??? If instructed to do so, strain your urine (pee) with the urine strainer you were provided with today. Your stone may look like a grain of sand or a small pebble. Collect any stones in the cup provided and bring to your follow-up appointment. ??? Staying active is good, and may help the stone to pass. You may do whatever you feel up to doingwithout restrictions. Treatment: ??? Non-steroidal anti-inflammatory drugs (NSAIDs). This includes prescription medicines like Toradol?? (ketorolac) and non-prescription medicines like Advil?? (ibuprofen) and Nuprin?? (ibuprofen) and Naproxen. These pain relievers are very effective for kidney stones. ??? Nausea (sick to your stomach) medication. Nausea and vomiting are common with kidney stones, so your provider may send you home with medicine for this. ??? Flomax?? (tamsulosin). This medicine is sometimes used for men with prostate problems, but also can help kidney stones to pass. Its effectiveness is controversial or questionable so it is prescribed in certain situations. This medicine can lower blood pressure, and you may feel faint/lightheaded, e specially when you first stand up. Be sure to get up gradually, sit down if you feel faint, and avoid activity where feeling faint would be dangerous, such as climbing ladders. If you were given a prescription for medicine here today, be sure to read all of the information (including the package insert) that comes with your prescription. This will include important information about the medicine, its side effects, and any warnings that you need to know about. The pharmacist who fills the prescription can provide more information and answer questions you may have about the medicine. If you have questions or concerns that the pharmacist cannot address, please call or return to the Emergency Department. Remember that you can always come back to the Emergency Department if you are not able to see your regular provider in the amount of time listed above, if you get any new symptoms, or if there is anything that worries you. Opioid Medication Discharge Instructions You have been given a prescription for an opioid (narcotic) pain medicine and/or have received a pain medicine while here in the emergency department. These medicines can make you drowsyor impaired. You must not drive, operate dangerous equipment, or engage in any other dangerous activities while taking these medications. If you drive while taking these medications, you could be arrested for DUI, or driving under the influence. Do not drink any alcohol while you are taking these medications. Opioid pain medications can cause addiction. If you have a history of chemical dependency of any type, you are at a higher risk of becoming addicted to pain medications. Only take these prescribed medications to treat your pain when all other options have been tried. Take it for as short a time and as few doses as possible. Store your pain pills in a secure place, as they are frequently stolen and provide a dangerous opportunity for children or visitors in your house to start abusing these powerful medications. We will not replace any lost or stolen medicine. As soon as your pain is better, you should safely dispose of all your remaining medication. Many prescription pain medications contain Tylenol (acetaminophen), including Vicodin, Tylenol #3, Hixton, Lortab, and Percocet. You should not take any extra pills of Tylenol if you are using these prescription medications or you can get very sick. Do not ever take more than 4000 mg of acetaminophen in any 24 hour period. All opioids tend to cause constipation. Drink plenty of water and eat foods that have a lot of fiber, such as fruits, vegetables, prune juice, apple juice and high fiber cereal. Take a laxative if you don???t move your bowels at least every other day. Miralax, Milk of Magnesia, Colace, or Senna can be used to keep you regular. documented in this encounter Medications at Time [...] 0 06/30/2021 80 MG tablet At Bedtime documented as of this encounter ED Notes Yue Tyson RN - 07/05/2018 2:10 AM CDT Pt given urinal to pee. Given crackers and water for PO challenge Yue Tyson RN - 07/05/2018 2:00 AM CDT Pt very upset that it took so long to get more pain medications. RN explained it's been a busy night and several critical patients came in that took priority and apologized for the wait. Pt still upset. Shaila Priest RN - 07/04/2018 10:43 PM CDT Pt c/o LLQ abdominal pain that started this afternoon. Pt denies n/v/d/f. Essie Sanchez MD - 07/04/2018 10:36 PM CDT History Chief Complaint: Abdominal Pain HPI Haris Villa is an anticoagulated 77 year old male with a history of hypertension, coronary arterydisease s/p CABG, melanoma, and atrial flutter who presents to the ED for evaluation of abdominal pain. The patient states that he developed some abdominal discomfort, as if he was going to have diarrhea, around 1800. He states that he had a bowel movement but it was normal and denies diarrhea. [id number], he states that he developed left lower quadrant abdominal pain which he rates a 9/10. He also complains of increased urinary urgency tonight as well. He denies any symptoms of fever, nausea, vomit, or hematuria. His states that he has been flushed and will occasionally break out in sweats, which she suspect is likely secondary to the pain, as well. Of note, he has some bilateral leg swelling which he states is normal in addition to cough/cold symptoms. The patient has not taken and pain medications prior to presenting. Allergies: The patient has no known drug allergies. Medications: Tylenol #3 Acyclovir Eliquis Glipizide Lasix Metformin Metoprolol Nitrostat Pantoprazole sodium Pravastatin Past Medical History: Arthritis Atrial flutter CAD Diabetes HTN Malignant neoplasm Melanoma PVC Sinus node dysfunction Sleep apnea Past Surgical History: CABG Atrial flutter Cholecystectomy Left heart cath Hernia repair Rotator cuff surgery Family History: Heart disease Social History: Negative for tobacco use. Negative for alcohol use. Marital Status: [2] Review of Systems Constitutional: Positive for diaphoresis. Negative for fever. Gastrointestinal: Positive for abdominal pain. Negative for nausea and vomiting. Genitourinary: Positive for urgency. Negative for hematuria. All other systems reviewed and are negative. Physical Exam First Vitals: BP: 94/70 Heart Rate: 77 Temp: 97.5 ??F (36.4 ??C) Resp: 16 Weight: 133.8 kg (295 lb) SpO2: 96 % Physical Exam Nursing note and vitals reviewed. Constitutional: Pleasant and well groomed. Elevated BMI. HENT: Mouth/Throat: Oropharynx is without swelling or erythema. Oral mucosa moist. Eyes: Conjunctivae are normal. No scleral icterus. Neck: Neck supple. Cardiovascular: Normal rate, regular rhythm and intact distal pulses. Pulmonary/Chest: Effort normal and breath sounds normal. Abdominal: Soft. No distension. There is no tenderness. No focal abdominal tenderness. Musculoskeletal: No edema, No calf tenderness. Trace pedal edema, baseline per patient. Neurological:Alert. Coordination normal. Skin: Skin is warm and dry. Psychiatric: Normal mood and affect. Emergency Department Course Imaging: Radiographic findings were communicated with the patient who voiced understanding of the findings. CT Abdomen pelvis without contrast: 1. There are three distal left ureteral stones measuring up to 0.4 cm in diameter and causing mild hydronephrosis. 2. Prostate gland enlargement. 3. Colonic diverticula without acute diverticulitis as per radiology. Laboratory: CBC: WBC: 7.8, HGB: 13.9, PLT: 242 CMP: Glucose 240, BUN 37 (H), Creatinine 1.43 (H), GFR estimate 48 (L), Alkphos 32 (L), o/w WNL Lipase: 124 UA with Microscopic: Glc 50 (A), Mucous present (A), o/w WNL INR: 1.25 (H) Interventions: 2357 Dilaudid 0.2 mg IV 0153 Tylenol 1,000 mg PO 0154 Dilaudid 0.2 mg IV Emergency Department Course: Nursing notes and vitals reviewed. (2343) I performed an exam of the patient as documented above. IV inserted. Medicine administered as documented above. Blood drawn. This was sent to the lab for further testing, results above. The patient provided a urine sample here in the emergency department. This was sent for laboratory testing, findings above. The patient was sent for a abdomen/pelvis CT while in the emergency department, findings above. 0112 I rechecked the patient and discussed the results of his workup thus far. Findings and plan explained to the Patient. Patient discharged home with instructions regarding supportive care, medications, and reasons to return. The importance of close follow-up was reviewed. The patient was prescribed Tylenol, Zofran, and Oxycodone. I personally reviewed the laboratory results with the Patient and answered all related questions prior to discharge. Impression & Plan Medical Decision Making: The patient presented with unilateral flank and abdominal pain. On arrival the differential diagnosis included, but was not limited to nephrolithiasis, pyelonephritis, AAA, testicular torsion. CT confirms a ureteral stone. The patient's symptoms have been controlled with described interventions in the Emergency Department. There is no fever or evidence of a urinary tract infection. The patient will be discharged with opioid analgesics and Ibuprofen for pain. I have explained the importance of short term NSAID use in the management of ureteral colic. The patient understands to return to the ED with uncontrolled pain, vomiting, and fever. I have recommended that they strain their urine for stone, if detected, submit to primary doctor for lab analysis. Plan: 1. Return to the ED with new or worse symptoms 2. Follow up with your PMD in 3-4 for ongoing evaluation and management and additional narcotics as needed for symptom control. 3. Follow up with urology within one week, sooner if pain continues, as retrieval of the stone may be required for refractory symptoms. 4. Provided with standard [facility] Discharge instructions for Kidney Stones 5. Prescriptions for Tylenol, Zofran, and oxycodone were provided. Diagnosis: ICD-10-CM 1. Nephrolithiasis N20.0 Disposition: discharged to home Discharge Medications: Discharge Medication List as of 07/05/2018 2:20 AM START taking these medications Details acetaminophen (TYLENOL) 500 MG tablet Take 1-2 tablets (500-1,000 mg) by mouth every 8 hours as needed for mild pain (DO NOT FILL! For dosing only.) DO NOT FILL! For Dosing Only, Disp-1 tablet, R-0, Local Print ondansetron (ZOFRAN ODT) 4 MG ODT tab Take 1 tablet (4 mg) by mouth every 8 hours as needed for nausea, Disp-10 tablet, R-0, Local Print oxyCODONE IR (ROXICODONE) 5 MG tablet Take 1 tablet (5 mg) by mouth every 6 hours as needed for pain, Disp-12 tablet, R-0, Local Print Scribe Disclosure: I, Isac Alfred, am serving as a scribe on 07/04/2018 at 11:43 PM to personally document services performed by Essie Sanchez* based on my observations and the provider's statements to me. Isac Alfred 07/04/2018 [facility] EMERGENCY DEPARTMENT Essie Sanchez MD 07/07/181951 documented in this encounter Plan of Treatment Upcoming Encounters Date Type Specialty Care Team Description 06/26/2022 Ancillary Procedure Cardiology Seng Canchola MD [address] [place] [id number] (Wo rk) 08/16/2022 Ancillary Procedure Cardiology Timothy Smith MD [address] [place], [place] [phone] (Wo rk) 08/16/2022 Office Visit Cardiology Timothy Smith MD [address] [place] [address] (Wo rk) documented as of this encounter Procedures Procedure Name Priority Date/Time Associated Comments Diagnosis CT ABDOMEN PELVIS W/O STAT 07/05/2018 12:08 Re sults for this CONTRAST AM CDT procedure are i n the results section. ROUTINE UA WITH STAT 07/04/2018 10:50 Results for this MICROSCOPIC REFLEX TO PM CDT proced ure are in CULTURE the results section. CBC WITH PLATELETS & STAT 07/04/2018 10:50 Res ults for this DIFFERENTIAL PM CDT procedure are i n the results section. INR Routine 07/04/2018 10:50 Results for this PM CDT procedure are i n the results section. LIPASE STAT 07/04/2018 10:50 Results for this PM CDT procedure are i n the results section. COMPREHENSIVE STAT 07/04/2018 10:50 Results fo r this METABOLIC PANEL PM CDT procedure ar e in the results section. documented in this encounter Results CT Abdomen Pelvis w/o Contrast (07/05/2018 12:08 AM CDT) Anatomical Region Laterality Modality Abdomen/Pelvis, SUBRAD CT BODY, UMP CT ABDOMEN PELVIS, Computed Tomography RAD CT Specimen (Source) Anatomical Location Collection Method / Collectio n Time Received Time / Laterality Volume Impressions 07/05/2018 1:35 AM CDT IMPRESSION: 1. There are three distal left ureteral stones measuring up to 0.4 cm in diameter and causing mild hydronephro sis. 2. Prostate gland enlargement. 3. Colonic diverticula without acute div erticulitis. CHEYENNE TIAN MD Narrative 07/05/2018 1:[address] ABDOMEN PELVIS W/O CONTRAST ??07/05/2018 12:08 AM HISTORY: Left lower quadrant pain. TECHNIQUE: Noncontrast CT abdomen and pe lvis was performed. Radiation dose for this scan was reduced using aut omated exposure control, adjustment of the mA and/or kV according to patient size, or iterative reconstruction technique. COMPARISON: None. FINDINGS: Abdomen: There is mild dilatation of the left renal collecting system and ureter into the pelvis. There are th ree distal ureteral stones measuring up to 0.4 cm. There are two corral bcentimeter high attenuation lesions in the lower pole of the left ki dney which are probably high-density cysts. There is a 3.1 cm ex ophytic cyst at the upper pole of the right kidney. No right-sided urin arnie stones. There is mild atelectasis and scarring a t the lung bases. Calcified granuloma in the right lower lobe. The h eart is enlarged. Cardiac device in place. Evaluation of the solid abdominal organs is limited by the lack of intravenous contrast. The re are calcified granulomas in the liver and spleen. The gallbladder is absent. The pancreas and adrenal glands are within normal limits. There is no abdominal or pelvic lymph node enlargement. There is atherosclerotic calcification of the aorta and its branches. No aneury sm. Pelvis: There are a few colonic divertic osman without acute diverticulitis. No bowel obstruction or inflammation. The appendix is normal. No free intraperitoneal gas or f luid. The prostate gland is enlarged. A few pelvic phleboliths. Dege nerative disease in the spine. Procedure Note Cheyenne Tian MD - 07/05/2018Form atting of this note might be different from the original. CT ABDOMEN PELVIS W/O CONTRAST 07/05/2018 12:08 AM HISTORY: Left lower quadrant pain. TECHNIQUE: Noncontrast CT abdomen and pe lvis was performed. Radiation dose for this scan was reduced using aut omated exposure control, adjustment of the mA and/or kV according to patient size, or iterative reconstruction technique. COMPARISON: None. FINDINGS: Abdomen: There is mild dilatation of the left renal collecting system and ureter into the pelvis. There are th ree distal ureteral stones measuring up to 0.4 cm. There are two ocrral bcentimeter high attenuation lesions in the lower pole of the left ki dney which are probably high-density cysts. There is a 3.1 cm ex ophytic cyst at the upper pole of the right kidney. No right-sided urin arnie stones. There is mild atelectasis and scarring a t the lung bases. Calcified granuloma in the right lower lobe. The h eart is enlarged. Cardiac device in place. Evaluation of the solid abdominal organs is limited by the lack of intravenous contrast. The re are calcified granulomas in the liver and spleen. The gallbladder is absent. The pancreas and adrenal glands are within normal limits. There is no abdominal or pelvic lymph node enlargement. There is atherosclerotic calcification of the aorta and its branches. No aneury sm. Pelvis: There are a few colonic divertic osman without acute diverticulitis. No bowel obstruction or inflammation. The appendix is normal. No free intraperitoneal gas or f luid. The prostate gland is enlarged. A few pelvic phleboliths. Dege nerative disease in the spine. IMPRESSION: 1. There are three distal left ureteral stones measuring up to 0.4 cm in diameter and causing mild hydronephro sis. 2. Prostate gland enlargement. 3. Colonic diverticula without acute div erticulitis. CHEYENNE TIAN MD Essie Sanchez MD IMG CT ORDERABLES (ABNORMAL) INR (07/04/2018 10:50 PM CDT) athologist Signature INR 1.25 (H) 0.86 - 1.14 07/05/2018 [place] 12:43 AM T [facility] Specimen Anatomical Collection Method Collection Time Receive d Time (Source) Location / / Volume Laterality 07/04/2018 10:50 07/04/2018 PM CDT 11:22 PM CDT Provider Unknown LAB - BLOOD ORDERABLES Performing Organization Address City/State/ZIP Code Phon e Number [facility] [address], [place] [address] [facility] [address] [place] [address] [phone] (ABNORMAL) UA with Microscopic reflex to Culture (07/04/2018 10:50 PM CDT) Patholo gist Method Time Signature Color Urine Yellow 07/04/2018 [place] 11:28 PM [facility] Appearance Urine Clear 07/04/2018 [place] 11:28 PM [facility] Glucose Urine 50 (A) NEG^Negat 07/04/2018 [facility] mike mg/dL 11:28 PM [facility] Bilirubin Urine Negative NEG^Negat 07/04/2018 [facility] mike 11:28 PM [facility] Ketones Urine Negative NEG^Negat 07/04/2018 [facility] mike mg/dL 11:28 PM [facility] Specific [place] 1.017 1.003 - 07/04/2018 [place] Urine 1.035 11:28 PM [facility] Blood Urine Negative NEG^Negat 07/04/2018 [facility] mike 11:28 PM [facility] pH Urine 5.0 5.0 - 7.0 07/04/2018 [place] pH 11:28 PM [facility] Protein Albumin Negative NEG^Negat 07/04/2018 [place] Urine mike mg/dL 11:28 PM [facility] Urobilinogen 0.0 0.0 - 2.0 07/04/2018 [facility] mg/dL mg/dL 11:28 PM [facility] Nitrite Urine Negative NEG^Negat 07/04/2018 [facility] mike 11:28 PM [facility] Leukocyte Negative NEG^Negat 07/04/2018 [place] Esterase Urine mike 11:28 PM [facility] Source Midstream 07/04/2018 [place] Urine 11:15 PM [facility] WBC Urine 1 0 - 5 07/04/2018 [facility] /HPF 11:28 PM [facility] RBC Urine 1 0 - 2 07/04/2018 [facility] /HPF 11:28 PM [facility] Squamous <1 0 - 1 07/04/2018 [facility] Epithelial /HPF /HPF 11:28 PM [facility] Mucous Urine Present (A) NEG^Negat 07/04/2018 [facility] mike /LPF 11:28 PM [facility] Specimen (Source) Anatomical Collection Method Collection Time Re ceived Time Location / / Volume Laterality Examination of 07/04/2018 10:50 8 midstream urine PM T 11:15 PM T specimen (procedure) Sabino Mckeon MD LAB - URINE ORDERABLES Performing Organization Address City/State/[facility] Phon e [facility] [address], [place] [address] [place] [address] [place] [address] [address] Lipase (07/04/2018 10:50 PM CDT) P athologist Signature Lipase 124 73 - 393 07/04/2018 [facility] U/L 11:35 PM CDT HOSPITAL Specimen Anatomical Collection Method Collection Time Receive d Time (Source) Location / / Volume Laterality Blood specimen 07/04/2018 10:50 8 (specimen) PM CDT 11:14 PM CDT Sabino Mckeon MD LAB - BLOOD ORDERABLES Performing Organization Address [facility] [address], [place] [address] [place] [address] [address] [place], [place] [address], [facility] [phone] (ABNORMAL) Comprehensive metabolic panel (07/04/2018 10:50 PM CDT) Analysis Performed At Patho logist Time Signature Sodium 139 133 - 144 07/04/2018 [place] mmol/L 11:35 PM [facility] Potassium 4.2 3.4 - 5.3 07/04/2018 [place] mmol/L 11:35 PM [facility] Chloride 102 94 - 109 07/04/2018 [place] mmol/L 11:35 PM [facility] Carbon Dioxide 30 20 - 32 07/04/2018 [place] mmol/L 11:35 PM [facility] Anion Gap 7 3 - 14 07/04/2018 [place] mmol/L 11:35 PM [facility] Glucose 240 (H) 70 - 99 07/04/2018 [place] mg/dL 11:35 PM [facility] Urea Nitrogen 37 (H) 7 - 30 07/04/2018 [place] mg/dL 11:35 PM [facility] Creatinine 1.43 (H) 0.66 - 07/04/2018 [facility] 1.25 mg/dL 11:35 PM [facility] GFR Estimate 48 (L) >60 07/04/2018 [place] mL/min/1.7 11:[address] Comment: Non GFR Calc GFR Estimate If 58 (L) >60 mL/min/1.7m2 07/04/2018 11:35 PM [facility] Black [facility] Comment: GFR Calc Calcium 9.3 8.5 - 10.1 07/04/2018 11:35 PM [facility] mg/dL [facility] Bilirubin Total 0.4 0.2 - 1.3 mg/dL 07/04/2018 11:35 P [facility] Albumin 3.9 3.4 - 5.0 g/dL 07/04/2018 11:35 PM [facility] Protein Total 7.8 6.8 - 8.8 g/dL 07/04/2018 11:35 PM [facility] Alkaline Phosphatase 32 (L) 40 - 150 U/L 07/04/2018 11:35 PM [facility] ALT 22 0 - 70 U/L 07/04/2018 11:35 PM [facility] AST 22 0 - 45 U/L 07/04/2018 11:35 PM [facility] Specimen Anatomical Collection Method Collection Time Receive d Time (Source) Location / / Volume Laterality Blood specimen 07/04/2018 10:50 8 (specimen) PM CDT 11:14 PM CDT Sabino Mckeon MD LAB - BLOOD ORDERABLES Performing Organization Address City/State/ZIP Code Phon e Number [place] [address] [address] [place] [address] [phone] (ABNORMAL) CBC + differential (07/04/2018 10:50 PM CDT) [facility] Method Time Signature WBC 7.8 4.0 - 07/05/2018 [facility] 11.0 12:03 AM [facility] 10e9/L [facility] RBC Count 4.35 (L) 4.4 - 5.9 07/05/2018 [facility] 10e12/L 12:03 AM [facility] Hemoglobin 13.9 13.3 - 07/05/2018 [facility] 17.7 g/dL 12:03 AM [facility] Hematocrit 43.3 40.0 - 07/05/2018 [facility] 53.0 % 12:03 [facility] MCV 100 78 - 100 07/05/2018 [facility] fl 12:03 AM [facility] MCH 32.0 26.5 - 07/05/2018 [facility] 33.0 pg 12:03 AM [facility] MCHC 32.1 31.5 - 07/05/2018 [facility] 36.5 g/dL 12:03 AM [facility] RDW 15.2 (H) 10.0 - 07/05/2018 [facility] 15.0 % 12:03 AM [facility] Platelet Count 242 150 - 450 07/05/2018 [facility] 10e9/L 12:03 AM [facility] Diff Method Automated 07/05/2018 [facility] Method 12:03 AM [facility] % Neutrophils 62.9 % 07/05/2018 [facility] 12:03 AM [facility] % Lymphocytes 19.5 % 07/05/2018 [facility] 12:03 [facility] % Monocytes 11.0 % 07/05/2018 [facility] 12:03 [facility] % Eosinophils 5.0 % 07/05/2018 [facility] 12:03 [facility] % Basophils 0.8 % 07/05/2018 [facility] 12:03 [facility] % Immature 0.8 % 07/05/2018 [facility] Granulocytes 12:03 AM [facility] Nucleated RBCs 0 0 /100 07/05/2018 [facility] 12:03 AM [facility] Absolute 4.9 1.6 - 8.3 07/05/2018 [facility] Neutrophil 10e9/L 12:03 AM [facility] Absolute 1.5 0.8 - 5.3 07/05/2018 [facility] Lymphocytes 10e9/L 12:03 AM [facility] Absolute 0.9 0.0 - 1.3 07/05/2018 [facility] Monocytes 10e9/L 12:03 AM [facility] Absolute 0.4 0.0 - 0.7 07/05/2018 [facility] Eosinophils 10e9/L 12:03 AM [facility] Absolute 0.1 0.0 - 0.2 07/05/2018 [place] Basophils 10e9/L 12:03 AM [facility] Abs Immature 0.1 0 - 0.4 07/05/2018 [place] Granulocytes 10e9/L 12:03 AM [facility] Absolute 0.0 07/05/2018 [place] Nucleated RBC 12:03 AM [facility] Specimen Anatomical Collection Method Collection Time Receive d Time (Source) Location / / Volume Laterality Blood specimen 07/04/2018 10:50 8 (specimen) PM CDT 11:14 PM CDT Sabino Mckeon MD LAB - BLOOD ORDERABLES Performing Organization Address City/State/ZIP Code Phon e Number [place] [address] [address] [place] [address] [phone] documented in this encounter Visit Diagnoses Diagnosis Nephrolithiasis Calculus of kidney documented in this encounter Administered Medications Inactive Administered Medications - up to 3 most recent administrations Medication Order MAR Action Action Date Dose Rate Site acetaminophen (TYLENOL) tablet Given 07/05/2018 1:53 AM CDT 1,00 0 mg 1,000 mg 1,000 mg, Oral, ONCE, On Sun07/05/18 at 0114, For 1 dose, Maximum acetaminophen dose from all sources = 75 mg/kg/day not to exceed 4 gram HYDROmorphone (DILAUDID) injection 0.2 m g Given 07/04/2018 11:57 PM CDT 0.2 mg 0.2 mg, Intravenous, ONCE PRN, other, pain control or improvement in physical function. Hold dose for analgesic side effects., Starting on Ana 07/04/18 at 2350, For 1 dose, Notify the provider to assess for uncontrolled pain or analgesic side effects. Hold while on IV HALL CLERK or with regular IV opioid dosing. HYDROmorphone (DILAUDID) injection 0.2 m g Given 07/05/2018 1:54 AM CDT 0.2 mg 0.2 mg, Intravenous, ONCE, On Sun07/05/18 at 0114, For 1 dose documented in this encounter Active and Recently Administered Medications Times are shown in CDT. Scheduled Medication Order 07/03/2018 07/04/2018 07/05/2018 acetaminophen (TYLENOL) tablet 1,000 mg (COMPLETED) 0153 (Given - Provider: Krissy Emmanuel, RN) 1,000 mg, Oral, ONCE, Sun07/05/18 at 011 4, For 1 dose, Maximum acetaminophen dose from all sources = 75 mg/kg/day not to exceed 4 gram HYDROmorphone (DILAUDID) injection 0.2 mg (COMPLETED) 015 (Given - Provider: Krissy Emmanuel RN) 0.2 mg, Intravenous, ONCE, 1 dose, Sun07/05/18 at 0114 PRN Medication Order 07/03/2018 07/04/2018 07/05/2018 HYDROmorphone (DILAUDID) injection 0.2 mg (COMPLETED) 2356 (Given - Provider: Yue Tyson RN) 0.2 mg, Intravenous, ONCE PRN, 1 dose, S tarting Ana 07/04/18 at 2350, Until Ana 07/04/18 at 2357, other, pain control or improvement in physical function. Hold dose for analgesic side effects., Notify the provider to assess for uncontrolled madhuri n or analgesic side effects. Hold while on IV HALL CLERK or with regular IV opioid dosing. documented in this encounter Care Teams Warehouse Order Selector Relationship Specialty Start Date End Date Slava Hernandez PA-C PCP - General Physician Broom Worker 07/02/18 06/29/[address] [address] documented as of this encounter
--- OUTSIDE RECORDS SUMMARY | 2022-06-22 08:56 | XMS_ITS | Encounter Summary ---
:1940 Author Organization [facility] Address [address] [place] [address] Care Team Providers Name Role Phone Clinic, [facility] Primary Care Provider [phone] Reason for Visit Reason Comments Pacemaker Check Rep check Pre AF ablation (c ancelled) Encounter Details Date Type Department Care Team Description 05/31/2018 Documentation Only [facility] Fabiola Hurtado Check (Rep [facility] [place] Bui RN, RN check Pre AF [address] [facility] HEART ablati on... [address] [place] [phone] [phone] [address] [place], [place] [id number] Social History Tobacco Use Types Packs/Day Years Used Date Never Smoker Smokeless Tobacco: Never Used Alcohol Use Standard Drinks/Week Comments No 0 (1 standard drink = 0.6 oz pure alcoho l) Sex Assigned at Date Recorded Not on file documented as of this encounter Progress Notes Fabiola Hurtado, RN, RN - 06/07/2018 3:48 PM CDT [facility] [employer] (D) PPM REP INTERROGATION Rep interrogated device while pt prepping for A flutter ablation. Ablation was then canceled as pt presented in sinus rhythm. Mode switched back to DDDR 60/130 on 05/07/18 when pt was cardioverted. He later had more A flutter episodes (2:1). Dr Smith recommended ablation. Will continue to monitor for further events. MS at 140 BPM; Lead measurements are stable battery is full with an estimated 12 years remaining longevity. Continue on current schedule. Supa,SIENNA documented in this encounter Plan of Treatment Upcoming Encounters Date Type Specialty Care Team Description 06/26/2022 Ancillary Procedure Cardiology Seng Canchola MD [address] [place] [id number] (Wo rk) 08/16/2022 Ancillary Procedure Cardiology Timothy Smith MD [address] [place] [id number] (Wo rk) 08/16/2022 Office Visit Cardiology Timothy Smith MD [address] [place] [id number] (Wo rk) documented as of this encounter Visit Diagnoses Not on filedocumented in this encounter Care Teams Retail Department Manager Relationship Specialty Start Date End Date [facility], Vinny Jaimes PCP - General 01/16/18 07/01/18 [id number] [place] [phone] documented as of this encounter
--- OUTSIDE RECORDS SUMMARY | 2022-06-22 08:56 | XMS_ITS | Encounter Summary ---
:1940 Author Organization [place] Address [address] [place] [address] Care Team Providers Name Role Phone Slava Hernandez PA-C Primary Care Provider Reason for Visit Reason Onset Date Comments Prior Auth - Medication 10/02/2018 apixaban ANTICOA GULANT (ELIQUIS) 5 MG tablet- Tier Exception Denied Encounter Details Date Type Department Care Team Description 10/02/2018 Telephone [facility] Timothy Smith MD Prior Auth - Medication [facility] [place] [address] (apixaban ANTICOAGULANT [address] [facility] [address] (ELIQUIS) 5 MG tablet- [facility] [address] [place] [address] Tier Exception Denied) [place] [phone] Social History Tobacco Use Types Packs/Day Years Used Date Never Smoker Smokeless Tobacco: Never Used Alcohol Use Standard Drinks/Week Comments No 0 (1 standard drink = 0.6 oz pure alcoho l) Sex Assigned at Date Recorded Not on file documented as of this encounter Miscellaneous Notes Telephone Encounter - Temitope Tamayo RN - 11/01/2018 10:45 AM CST Patient called and is requesting his refills to go to [facility]. Needing eliquis. Sent script to pharmacy. SIENNA Okeefe L COAT SPRAYER Telephone Encounter - Lacy [place] RN - 10/29/2018 10:19 AM CST Pt called as he needs a couple of weeks of samples of Eliquis to make it until his new insurance card arrives. 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 Jing L COAT SPRAYER Telephone Encounter - Lacy [place] RN - 10/28/2018 7:32 AM CST Pt called and LM and stated that he has changed his insurance from [employer] to [employer] and will bring in his card when it arrives in the mail. Will then do a new PA if needed. Jing L COAT SPRAYER Telephone Encounter - Lacy [place] RN - 10/22/2018 4:24 PM CST LM for pt to call back to discuss the Eliquis tier exception denial. Jing L COAT SPRAYER Telephone Encounter - Catherine Aranda LPN - 10/07/2018 4:24 PM CST WILL FORWARD THE DENIAL WE RECEIVED FROM [facility] PA TEAM TO EP DR SMITH----BECAUSE OF MEDICARE RULES [place] NOT QUALIFY FOR A TIER EXCEPTION-YVETTE MENA--COULD DO AN APPEAL OR OTHER MEDICATION Pt calling today ,- he has 2 weeks of samples left and cannot afford the eliquis, We have already tried for a PA-message to EP Team Dr Smith-yvette mena L COAT SPRAYER Telephone Encounter - Yareli Tamez - 10/07/2018 11:40 AM CST Images from the original note were not included. TIER EXCEPTION DENIED Medication: apixaban ANTICOAGULANT (ELIQUIS) 5 MG tablet- Tier Exception Denied Denial Date: 10/03/2018 Denial Rational: You asked for a covered drug at a lower cost level. When you ask for a higher cost drug at a lower cost level (tier) it is called a tiering exception. [facility] follows Medicare rules; which explain when you can ask for a Tier Exception. It says you can ask for a tier exception as long as there is a lower cost brand name drug or biological drug for treating the same condition on your plans formulary drug list. You don???t qualify for a tiering exception per Medicare rules. If you feel there is additional information related to this case that might affect this decision and an appeal isdesired, please submit a written letter of medical necessity to our PA Team. Appeal Information: L COAT SPRAYER Telephone Encounter - Yareli Tamez - 10/03/2018 12:54 PM CST Images from the original note were not included. Central Prior Authorization Team Ter Exception Renewal Initiation Medication: apixaban ANTICOAGULANT (ELIQUIS) 5 MG tablet Insurance Company: [employer] - Pharmacy Filling the Rx: [facility] MAIL DELIVERY - [address] Filling Pharmacy Filling Pharmacy Fax: Start Date: 10/03/2018 L COAT SPRAYER Telephone Encounter - Kitty Sierra - 10/02/2018 10:12 AM CST TIER EXCEPTION RENEWAL Prior Authorization Retail Medication Request Medication/Dose: apixaban ANTICOAGULANT (ELIQUIS) 5 MG tablet ICD code (if different than what is on RX): Paroxysmal atrial fibrillation (H) [I48.0] Previously Tried and Failed: See chart Rationale: Needs renewal on Tier exception Patient called to start process Insurance Name: [employer] BIN: [id number] PCN: [id number] Pharmacy Information (if different than what is on RX) Name: [facility] MAIL DELIVERY L COAT SPRAYER documented in this encounter Plan of Treatment Upcoming Encounters Date Type Specialty Care Team Description 06/26/2022 Ancillary Procedure Cardiology Seng Canchola MD [address] [place] [id number] (Wo rk) 08/16/2022 Ancillary Procedure Cardiology Timothy Smith MD [address] [place], [place] [phone] (Wo rk) 08/16/2022 Office Visit Cardiology Timothy Smith MD [address] [place] [id number] (Wo rk) documented as of this encounter Visit Diagnoses Diagnosis Paroxysmal atrial fibrillation (H) Atrial fibrillation documented in this encounter Care Teams Double End Trimmer Relationship Specialty Start Date End Date Slava Hernandez PAIlanaC PCP - General Physician Medicine Aide 07/02/18 06/29/21 [facility] [address] [place] [address] documented as of this encounter
--- OUTSIDE RECORDS SUMMARY | 2022-06-22 08:56 | XMS_ITS | Encounter Summary ---
:1940 Author Organization [place] Address [facility] [place] [address] Care Team Providers Name Role Phone [facility], [place] Primary Care Provider [phone] Slava Hernandez PA-C Primary Care Provider Reason for Visit Reason Comments FU After EP Procedure S/p unsuccessful DCCV on 05/07 Encounter Details Date Type Department Care Team Description 05/21/2018 Office Visit [facility] Timothy Smith MD [address] [place] [id number] Persistent atrial fibrillation (H) (Prim arnie Dx); Heart Clinic Elda Ramires, BANKING SERVICES CLERK DOOR CLAMPER [address] [place] [id number] Coronary artery disease involving [place] coronary artery of [place] heart with angina pectoris (H); [address] [facility] Sleep mandrel press hand ea, unspecified type; [address] Cardiomyopathy, unspecified type (H); [place] [address] Typical atrial flutter (H); [phone] Ischemic cardio myopathy Social History Tobacco Use Types Packs/Day Years Used Date Never Smoker Smokeless Tobacco: Never Used Alcohol Use Standard Drinks/Week Comments No 0 (1 standard drink = 0.6 oz pure alcoho l) Sex Assigned at Date Recorded Not on file documented as of this encounter Last Filed Vital Signs Vital Sign Reading Time Taken Comments Blood Pressure 112/62 05/21/2018 2:46 PM CDT Pulse 78 05/21/2018 2:46 PM CDT Temperature - - Respiratory Rate - - Oxygen Saturation - - Inhaled Oxygen Concentration - - Weight 135.4 kg (298 lb 9.6 oz) 05/21/2018 2:46 PM CDT Height 180.3 cm (5' 11) 05/21/2018 2:46 PM CDT Body Mass Index 41.65 05/21/2018 2:46 PM CDT documented in this encounter Patient Instructions Patient InstructionsStElda cuba APRN CNP - 05/21/2018 3:10 PM CDT Schedule your atrial flutter ablation. Reduce your lasix to 40 mg daily. Follow up with your primary care provider with BMP. You creatine is elevated today. As always, thank you for trusting us with your health care needs! If you have any questions regarding your visit please contact your care team: Cardiology Telephone Number Afib RNs: Lacy Del Rosario and Pat [phone] Call for Electrophysiology procedure scheduling concerns [phone] Device Clinic (Pacemakers, ICDs, Loop Recorders) RN's: Sammi Cotton Lynda, MJ, Stephanie, Sue During business hours: [phone] documented in this encounter Progress Notes Elda Johnson APRN CNP - 05/21/2018 3:10 PM CDT HPI: Harsi Villa is a 77 year old male who is a patient of Dr. Smith who presents for atrial fibrillationfollow up. His past medical history includes CAD s/p CABG, atrial fibrillation, cardiomyopathy, obesity, HTN, SSS s/p pacemaker implantation, atrial flutter s/p ablation 01/2013. He saw Dr. Smith (04/30/2018) and was noted to have developed persistent atrial fibrillation with in the past few months, associated with 2+ LE edema while taking lasix 20 mg. His rates appeared to be controlled, however, his ECHO (04/30/2018) revealed EF 35-40% and he had LE edema. Dr. Smith increased his lasix to 40 mg BID, initiated amiodarone 200 mg daily and proceeded to DCCV. He underwent a successful DCCV on 05/07/2018 however converted back to atrial fibrillation in recovery. Device check today revealed 0% A-paced; 34% V-paced Not appropriately mode switching and in an atrial tachycardia. Today Haris Villa presents feeling good. His BMP is elevated His LE edema has decreased. Wears his CPAP. At this time, he denies chest pain or pressure, headaches, dizziness, syncope, angina, dyspnea at rest or with exertion, dry cough, palpitations, orthopnea, PND, abdominal pain, abdominal edema,pedal edema, or claudication. Denies easy bruising or bleeding, hematuria, hematochezia, and epistaxis. Denies signs/symptoms of stroke such as visual disturbance, difficulty speaking, facial drooping,confusion, problems with gait, or any new numbness or weakness. ASSESSMENT AND PLAN (I48.1) Persistent atrial fibrillation (H) Reviewed the EMG and EKG with Dr. Smith. He recommended pursing an atrial flutter ablation. He will have a reassessment of the LV ejection fraction in the end of June. I will see him for followup in July. Atrial flutter ablation Discussed complications of an atrial flutter ablation include but are not limited to vascular injury, excessive bleeding groin hematoma, diaphragm injury, cardiac tamponade requiring pericardiocentesisor open heart surgery, esophageal injury, pulmonary vein stenosis, and thromboembolic complications or strokes. Patient understands there is 3-4% risk of complication associated with procedure. After an extensive discussion, the patient would like to proceed with an atrial flutter ablation. Consent will be signed by the procedure physician. (I25.119) CAD Metoprolol XL 100 mg daily Pravastatin 80 mg daily (last LDL 86 mg on 02/02/2018) Nitroglycerin prn Fenofibrate 160 mg daily (G47.30) Sleep apnea, unspecified type Wears mask (I42.9) Cardiomyopathy, unspecified type (H) Decrease lasix from 80 mg to 40 mg daily Recommended following up with primary care in 1 week with BMP Amiodarone TSH 3.79 (05/03/2018) ALT 31 (05/03/2018) AST 25 (05/03/2018) PFT completed 05/07 Repeat ECHO prior to follow up with Dr. Smith Patient expresses understanding and agreement with the plan. ?? I appreciate the chance to help with Haris Villa Please let me know if you have any questions or concerns. Elda Johnson APRN, DOOR CLAMPER This note was completed in part using [employer]IRS[employer] voice recognition software. Although reviewed after completion, some word and grammatical errors may occur. Orders Placed This Encounter Procedures ??? EKG 12-lead complete w/read - Clinics (performed today) ??? EP Ablation atrial flutter Orders Placed This Encounter Medications ??? furosemide (LASIX) 40 MG tablet Sig: Take 1 tablet (40 mg) by mouth daily Dispense: 30 tablet Refill: 3 Pt will call for refills Medications Discontinued During This Encounter Medication Reason ??? spironolactone (ALDACTONE) 25 MG tablet ??? furosemide (LASIX) 40 MG tablet Reorder Encounter Diagnoses Name Primary? Persistent atrial fibrillation (H) Yes ??? Coronary artery disease involving [place] coronary artery of [place] heart with angina pectoris (H) ??? Sleep apnea, unspecified type ??? Cardiomyopathy, unspecified type (H) ??? Typical atrial flutter (H) ??? Ischemic cardiomyopathy CURRENT MEDICATIONS: Current Outpatient Prescriptions Medication Sig Dispense Refill ??? acetaminophen-codeine (TYLENOL #3) 300-30 MG per tablet Take 1-2 tablets by mouth every 4 hours as needed for moderate pain 10 tablet 0 ??? ACYCLOVIR 400 MG OR TABS 1 TABLET 3 TIMES DAILY-as need for Cold sores 30 6 ??? amiodarone (PACERONE/CODARONE) 100 MG TABS tablet Take 2 tablets (200 mg) by mouth daily 16 tablet 0 ??? apixaban ANTICOAGULANT (ELIQUIS) 5 MG tablet Take 1 tablet (5 mg) by mouth 2 times daily 180 tablet 3 ??? celecoxib (CELEBREX) 200 MG capsule Take 200 mg by mouth 2 times daily ??? fenofibrate 160 MG tablet Take 160 mg by mouth daily. ??? furosemide (LASIX) 40 MG tablet Take 1 tablet (40 mg) by mouth daily 30 tablet 3 ??? GLIPIZIDE PO Take 5 mg by mouth 2 times daily (before meals) ??? metFORMIN (GLUCOPHAGE) 500 MG tablet Take 2 tablets (1,000 mg) by mouth 2 times daily (with meals) 60 tablet ??? metoprolol (TOPROL-XL) 100 MG 24 hr tablet Take 1 tablet (100 mg) by mouth daily 90 tablet 1 ??? nitroglycerin (NITROSTAT) 0.[address] 0.4 mg under the tongue every 5 minutesas needed for chest pain For chest pain place 1 tablet under the tongue every 5 minutes for 3 doses.If symptoms persist 5 minutes after 1st dose call 911. ??? PANTOPRAZOLE SODIUM PO Take 40 mg by mouth every morning (before breakfast). ??? pravastatin (PRAVACHOL) 80 MG tablet Take 80 mg by mouth At Bedtime ??? [DISCONTINUED] furosemide (LASIX) 40 MG tablet Take 1 tablet (40 mg) by mouth 2 times daily 30 tablet 3 ALLERGIES Allergies Allergen Reactions ??? No Known Allergies PAST MEDICAL HISTORY: Past Medical History: Diagnosis Date ??? Arthritis ??? Atrial flutter (H) sp ablation 02/27/2013 ??? Coronary artery disease sp CABG ??? Diabetes (H) ??? Hypertension ??? Malignant neoplasm (H) eye cancer tx with radiation 10 years ago, monitoring every 2 months ??? Melanoma (H) right eye ??? PVC (premature ventricular contraction) ??? Sinus node dysfunction (H) with recurrent near syncope, PM 02/03/2016 ??? Sleep apnea PAST SURGICAL HISTORY: Past Surgical History: Procedure Laterality Date ??? C CABG, ARTERY-VEIN, FOUR 1985 ??? CATHETER, ABLATION 01/2013 Atrial flutter ??? CHOLECYSTECTOMY ??? HC LEFT HEART CATHETERIZATION 01/2012 see report ??? HERNIA REPAIR ??? ORTHOPEDIC SURGERY ??? rotator cuff FAMILY HISTORY: Family History Problem Relation Age of Onset ??? HEART DISEASE Father ??? Obesity Paternal Grandmother ??? Obesity Daughter ??? Obesity Son SOCIAL HISTORY: Social History Social History ??? Marital status: Spouse name: N/A ??? Number of children: N/A ??? Years of education: N/A Social History Main Topics ??? Smoking status: Never Smoker ??? Smokeless tobacco: Never Used ??? Alcohol use No ??? Drug use: No ??? Sexual activity: Not Asked Other Topics Concern ??? Parent/Sibling W/ Cabg, Mi Or Angioplasty Before 65f 55m? No ??? Caffeine Concern Yes 2 cups coffe ??? Sleep Concern No ??? Stress Concern No ??? Special Diet No ??? Exercise No Social History Narrative Review of Systems: Skin: Positive for nail changes Eyes: Positive for glasses ENT: Negative Respiratory: Positive for sleep apnea;CPAP Cardiovascular: Negative for;palpitations;chest pain;dizziness;lightheadedness Positive for;edema Gastroenterology: Negative melena;hematochezia Genitourinary: Negative Musculoskeletal: Positive for arthritis;joint pain;nocturnal cramping Neurologic: Negative Psychiatric: Negative Heme/Lymph/Imm: Negative Endocrine: Positive for diabetes Physical Exam: Vitals: BP 112/62 Pulse 78 Ht 1.803 m (5' 11) Wt 135.4 kg (298 lb 9.6 oz) BMI 41.65 kg/m2 Constitutional: cooperative obese uses a wheeled walker Skin: warm and dry to the touch Head: normocephalic, no masses or lesions Eyes: pupils equal and round ENT: no pallor or cyanosis, dentition good Neck: JVP normal Chest: clear to auscultation Cardiac: regular rhythm Abdomen: abdomen soft obese Vascular: Extremities and Back: Neurological: no gross motor deficits Recent Lab Results: LIPID RESULTS: Lab Results Component Value Date CHOL 155 02/03/2016 HDL 31 (L) 02/03/2016 LDL 86 02/03/2016 TRIG 190 (H) 02/03/2016 CHOLHDLRATIO 5.0 04/25/2004 LIVER ENZYME RESULTS: Lab Results Component Value Date AST 25 05/03/2018 ALT 31 05/03/2018 CBC RESULTS: Lab Results Component Value Date WBC 6.4 02/04/2016 RBC 4.80 02/04/2016 HGB 13.6 05/02/2018 HCT 46.8 02/04/2016 MCV 98 02/04/2016 MCH 32.9 02/04/2016 MCHC 33.8 02/04/2016 RDW 13.6 02/04/2016 PLT 206 02/04/2016 BMP RESULTS: Lab Results Component Value Date NA 141 05/21/2018 POTASSIUM 4.7 05/21/2018 CHLORIDE 101 05/21/2018 CO2 31 (H) 05/21/2018 ANIONGAP 13.7 05/21/2018 GLC 154 (H) 05/21/2018 BUN 44 (H) 05/21/2018 CR 2.03 (H) 05/21/2018 GFRESTIMATED 32 (L) 05/21/2018 GFRESTBLACK 39 (L) 05/21/2018 AFRICA 10.3 05/21/2018 A1C RESULTS: Lab Results Component Value Date A1C 9.0 (H) 02/03/2016 CC Timothy Smith MD [address] [place] [address] R COVERINGS SALESPERSON documented in this encounter Plan of Treatment Upcoming Encounters Date Type Specialty Care Team Description 06/26/2022 Ancillary Procedure Cardiology Seng Canchola MD [address] [place], [place] [id number] (Wo rk) 08/16/2022 Ancillary Procedure Cardiology Timothy Smith MD [address] [place] [address] (Wo rk) 08/16/2022 Office Visit Cardiology Timothy Smith MD [address] [place], [place] [id number] (Wo rk) documented as of this encounter Procedures Procedure Name Priority Date/Time Associated Diagnosis Comme nts EKG 12-LEAD Routine 05/22/2018 11:39 Persistent atrial Result s for this COMPLETE W/READ - AM CDT fibrillation (H) proced ure are in CLINICS the results section. documented in this encounter Results EKG 12-lead complete w/read - Clinics (performed today) (05/22/2018 11:39 AM CDT) Narrative This result has an attachment that is no t available. 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 PCP - General 01/16/18 07/01/18 [place] [address] Slava Hernandez PA-C PCP - General Physician Mill Manager 07/02/18 06/29/21 [facility] [address] [place] [address] documented as of this encounter
--- OUTSIDE RECORDS SUMMARY | 2022-06-22 08:56 | XMS_ITS | Encounter Summary ---
:1940 Author Organization [place] Address [address] [place] [address] Care Team Providers Name Role Phone Slava Hernandez PA-C Primary Care Provider Reason for Referral - Closed Specialty Diagnoses / Procedures Referred By Contact Refer red To Contact Diagnoses Persistent atrial fibrillation (H) Ankur Smith MD [address] [place] [address] Referral ID Status Reason Start Date Expiration Date Visits Requ ested Visits Authorized [id number] Closed 07/02/2018 07/02/2019 1 1 Reason for Visit Reason Comments Atrial Fib ekg done - Closed Specialty Diagnoses / Procedures Referred By Contact Refer red To Contact Diagnoses Persistent atrial fibrillation (H) Ankur Smith MD [address] [place] [id number] Referral ID Status Reason Start Date Expiration Date Visits Requ ested Visits Authorized [id number] Closed 07/04/2018 07/04/2019 1 1 Encounter Details Date Type Department Care Team Description 07/02/2018 Office Visit [facility] Ankur Smith MD Persistent atrial [facility] [address] fibrillation (H) [address] [facility] [address] [place] [address] [place] [phone] Social History Tobacco Use Types Packs/Day Years Used Date Never Smoker Smokeless Tobacco: Never Used Alcohol Use Standard Drinks/Week Comments No 0 (1 standard drink = 0.6 oz pure alcoho l) Sex Assigned at Date Recorded Not on file documented as of this encounter Last Filed Vital Signs Vital Sign Reading Time Taken Comments Blood Pressure 134/76 07/02/2018 9:22 AM CDT Pulse 77 07/02/2018 9:22 AM CDT Temperature - - Respiratory Rate - - Oxygen Saturation - - Inhaled Oxygen Concentration - - Weight 138.3 kg (305 lb) 07/02/2018 9:22 AM CDT Height 180.3 cm (5' 11) 07/02/2018 9:22 AM CDT Body Mass Index 42.54 07/02/2018 9:22 AM CDT documented in this encounter Progress Notes Ankur Smith MD - 07/02/2018 9:53 AM CDT Service Date: 07/02/2018 HISTORY OF PRESENT ILLNESS: I saw Mr. Villa for followup of atrial fibrillation. There was an error in my documentation in the recent past. The patient did not have AV node ablation. He is a 77-year-old white male with a history of obesity, type 2 diabetes, hypertension, sleep apneaand coronary artery disease with previous CABG. He had atrial flutter ablation on 02/27/2013. He received a dual-chamber pacemaker implantation on 02/04/2016 for sinus node dysfunction. The patient hasbeen in persistent atrial fibrillation in the recent past. When I saw him in March, he was complaining of leg edema, fatigue and shortness of breath. The patient declined repeat coronary angiography. Hewas put on amiodarone and was scheduled for DC cardioversion. Although the cardioversion was acutelysuccessful, he reverted back to atrial fibrillation before he was discharged back home. Amiodarone has been stopped. He is currently on Eliquis for anticoagulation. He is taking Lasix 40 mg p.o. daily for leg edema, Toprol-XL 100 mg once a day for rate control. Symptomatically, he stated that he is feeling fine now with some mild fatigue only. The weight has been stable. On current dose of Lasix, he has no reaccumulation of fluid and he has no orthopnea or PND. Denies palpitation or chest pain. PHYSICAL EXAMINATION: VITAL SIGNS: Blood pressure was 134/76, heart rate 77 beats per minute, body weight 305 pounds. HEENT: Eyes and ENT were unremarkable. LUNGS: Clear. CARDIAC: Rhythm was irregularly irregular. The heart sounds were normal without murmur. ABDOMEN: Severe obesity. EXTREMITIES: He had trace leg edema. EKG today showed atrial fibrillation with controlled ventricular rate and right bundle branch block that is atypical. His echocardiography a few days ago showed ejection fraction 45%-50%. ASSESSMENT AND RECOMMENDATIONS: Mr. Villa is stable at the present time. He is doing reasonably wellsymptomatically. Since he cannot maintain sinus rhythm after DC cardioversion on amiodarone, we willno longer pursue rhythm control. We will continue anticoagulation and rate control for the time being. He will stay on the current medications and return to see me in 10/2018. cc: [place] [address] ANKUR SMITH MD MT: AISHWARYA Name: RADHA VILLA Account: [id number] : 1940 Service Date: 07/02/2018 Document: [id number] Ankur Smith MD - 07/02/2018 9:30 AM CDT HPI and Plan: See dictation Orders Placed This Encounter Procedures ??? Follow-Up with Section Gang No orders of the defined types were placed in this encounter. There are no discontinued medications. Encounter Diagnosis Name Primary? Persistent atrial fibrillation (H) CURRENT MEDICATIONS: Current Outpatient Prescriptions Medication Sig [...] Take 80 mg by mouth At Bedtime ALLERGIES Allergies Allergen Reactions ??? No Known [...] removed ENT: Negative Respiratory: Positive for sleep apnea;CPAP Cardiovascular: Negative for;palpitations;chest pain;dizziness;lightheadedness Positive for;edema edema muich improved Gastroenterology: Negative melena;hematochezia Genitourinary: Negative Musculoskeletal: Positive for arthritis;joint pain;nocturnal cramping Neurologic: Negative Psychiatric: Negative Heme/Lymph/Imm: Negative Endocrine: Positive for diabetes Physical Exam: Vitals: BP 134/76 Pulse 77 Ht 1.803 m (5' 11) Wt 138.3 kg (305 lb) BMI 42.54 kg/m2 Constitutional: cooperative obese uses a wheeled walker Skin: warm and dry to the touch pacemaker incision in the right infraclavicular area was well-healed Head: normocephalic, no masses or lesions Eyes: pupils equal and round wear eye glasses Lymph: ENT: no pallor or cyanosis, dentition good Neck: JVP normal Respiratory: clear to auscultation Cardiac: regular rhythm irregularly irregular rhythm not assessed this visit GI: abdomen soft obese Extremities and Muscular Skeletal: no deformities, clubbing, cyanosis, erythema observed bilateral LE edema;1+;2+;L greater than R Neurological: no gross motor deficits Psych: Alert and Oriented x 3 CC Ankur Smith MD [address] [place] [address] documented in this encounter Plan of Treatment Upcoming Encounters Date Type Specialty Care Team Description 06/26/2022 Ancillary Procedure Cardiology Seng Canchola MD [address] [place] [address] (Wo rk) 08/16/2022 Ancillary Procedure Cardiology Ankur Smith MD [address] [place] [address] (Wo rk) 08/16/2022 Office Visit Cardiology Ankur Smith MD [address] [place] [address] (Wo rk) Scheduled Referrals Name Type Priority Associated Diagnoses Order S chedule Follow-Up with Referral Routine Persistent atrial Expected : Section Gang fibrillation (H) 10/02 (Approximate), Expires: 07/02/2019 documented as of this encounter Procedures Procedure Name Priority Date/Time Associated Diagnosis Comme nts EKG 12-LEAD Routine 07/02/2018 9:53 AM Persistent atrial Resu lts for this COMPLETE W/READ - CDT fibrillation (H) proced ure are in CLINICS the results section. documented in this encounter Results EKG 12-lead complete w/read (Future)- to be scheduled (07/02/2018 9:53 AM CDT) Narrative This result has an attachment that is no t available. Ankur Smith MD ECG ORDERABLES documented in this encounter Visit Diagnoses Diagnosis Persistent atrial fibrillation (H) Atrial fibrillation documented in this encounter Care Teams Decating Machine Operator Relationship Specialty Start Date End Date Slava Hernandez PA-C PCP - General Physician Multimedia Project Manager 07/02/18 06/29/[address] [facility] [address] [place] [address] documented as of this encounter
--- OUTSIDE RECORDS SUMMARY | 2022-06-22 08:56 | XMS_ITS | Encounter Summary ---
:1940 Author Organization [place] Address [address] [place] [address] Care Team Providers Name Role Phone [facility], [facility] Primary Care Provider Encounter Details Date Type Department Care Team Description 05/21/2018 Orders Only [facility] Heart CAD (coronary artery Clinic [facility] ory disease) [address] [facility] [address] [place] [phone] Social History Tobacco Use Types Packs/Day Years [...] [address] [place] [id number] (Wo rk) 08/16/2022 Ancillary Procedure Cardiology Timothy Smith MD [address] [place] [phone] (Wo rk) 08/16/2022 Office Visit Cardiology Timothy Smith MD [address] [place] [phone] (Wo rk) documented as of this encounter Procedures Procedure Name Priority Date/Time Associated Diagnosis Comme nts BASIC METABOLIC Routine 05/21/2018 2:05 PM CAD (coronary arter y Results for this PANEL CDT disease) procedure are i n the results section. documented in this encounter Results (ABNORMAL) Basic metabolic panel (05/21/2018 2:05 PM CDT) [facility] Time Signature Sodium 141 136 - 145 05/21/2018 [facility] mmol/L 3:31 PM CDT [facility] A Potassium 4.7 3.5 - 5.1 05/21/2018 [facility] mmol/L 3:31 PM CDT [facility] A Chloride 101 98 - 107 05/21/2018 [facility] mmol/L 3:31 PM CDT [facility] A Carbon Dioxide 31 (H) 23 - 29 05/21/2018 [facility] mmol/L 3:31 PM CDT [facility] A Anion Gap 13.7 6 - 17 05/21/2018 [facility] mmol/L 3:31 PM T [facility] A Glucose 154 (H) 70 - 105 05/21/2018 [facility] mg/dL 3:31 PM CDT [facility] A Urea Nitrogen 44 (H) 7 - 30 05/21/2018 [facility] mg/dL 3:31 PM T [facility] A Creatinine 2.03 (H) 0.70 - 05/21/2018 [facility] 1.30 mg/dL 3:31 PM T [facility] A GFR Estimate 32 (L) >60 05/21/2018 [facility] mL/min/1.7 3:31 PM T [facility] m2 A GFR Estimate If 39 (L) >60 05/21/2018 [facility] Black mL/min/1.7 3:31 PM CDT [facility] m2 A Calcium 10.3 8.5 - 10.5 05/21/2018 [facility] mg/dL 3:31 PM T [facility] A Specimen Anatomical Collection Method Collection Time Receive d Time (Source) Location / / Volume Laterality Blood specimen 05/21/2018 2:05 PM 018 2:07 (specimen) CDT PM CDT Elda Johnson APRN BIGHT MAKER LAB - BLOOD ORDERABL ES Performing Organization Address City/State/ZIP Code Phon e Number [facility] [address] [address] [address] documented in this encounter Visit Diagnoses Diagnosis CAD (coronary artery disease) Coronary atherosclerosis of unspecified type of vessel, [place] or graft documented in this encounter Care Teams Senior Business Process Analyst Relationship Specialty Start Date End Date Clinic, [facility] PCP - General 01/16/18 07/01/18 [address] [place] [address] documented as of this encounter
--- OUTSIDE RECORDS SUMMARY | 2022-06-22 08:56 | XMS_ITS | Encounter Summary ---
:1940 Author Organization [place] Address [address] [place] [address] Care Team Providers Name Role Phone [facility] Primary Care Provider [phone] Encounter Details Date Type Department Care Team Description 05/03/2018 Orders Only [facility] Heart Isch emic cardiomyopathy; [facility] Persistent atrial fibrillati on (H) [address] [place], [place] [phone] Social History Tobacco Use Types Packs/Day [...] [address] [place] [id number] (Wo rk) 08/16/2022 Ancillary Procedure Cardiology Timothy Smith MD [address] [place] [id number] (Wo rk) 08/16/2022 Office Visit Cardiology Timothy Smith MD [address] [place] [id number] (Wo rk) documented as of this encounter Procedures Procedure Name Priority Date/Time Associated Diagnosis Comme nts TSH Routine 05/03/2018 9:58 AM Persistent atrial Resu lts for this CDT fibrillation (H) procedure a re in the results section. HEPATIC FUNCTION Routine 05/03/2018 9:58 AM Persistent atrial Results for this PANEL CDT fibrillation (H) procedure a re in the results section. BASIC METABOLIC Routine 05/03/2018 9:58 AM Ischemic cardiomyop athy Results for this PANEL CDT procedure are i n the results section. documented in this encounter Results TSH (05/03/2018 9:58 AM CDT) P athologist Signature TSH 3.79 0.40 - 4.00 05/03/2018 [facility] mU/L 10:39 AM T HOSPITAL Specimen Anatomical Collection Method Collection Time Receive d Time (Source) Location / / Volume Laterality Blood specimen 05/03/2018 9:58 AM 018 9:59 (specimen) CDT AM CDT Timothy Smith MD LAB - BLOOD ORDERABLES Performing Organization Address City/State/ZIP Code Phon e Number [place] [address] [place] [address] [facility] [address] [phone] (ABNORMAL) Hepatic panel (05/03/2018 9:58 AM CDT) Analysis Performed At Patho logist Time Signature Bilirubin Direct 0.4 (H) 0.0 - 0.2 05/03/2018 [place] mg/dL 10:33 AM [facility] Bilirubin Total 1.0 0.2 - 1.3 05/03/2018 [place] mg/dL 10:33 AM [facility] Albumin 3.7 3.4 - 5.0 05/03/2018 [place] g/dL 10:33 AM [facility] Protein Total 7.9 6.8 - 8.8 05/03/2018 [place] g/dL 10:33 AM [facility] Alkaline 29 (L) 40 - 150 05/03/2018 [place] Phosphatase U/L 10:33 AM [facility] ALT 31 0 - 70 U/L 05/03/2018 [place] 10:33 AM [facility] AST 25 0 - 45 U/L 05/03/2018 [place] 10:33 AM [facility] Specimen Anatomical Collection Method Collection Time Receive d Time (Source) Location / / Volume Laterality Blood specimen 05/03/2018 9:58 AM 018 9:59 (specimen) CDT AM CDT Timothy Smith MD LAB - BLOOD ORDERABLES Performing Organization Address City/State/ZIP Code Phon e Number [place] [address] [address] [place] [address] [facility] [address] [phone] (ABNORMAL) Basic metabolic panel (05/03/2018 9:58 AM CDT) P athologist Signature Sodium 138 133 - 144 05/03/2018 [place] mmol/L 10:33 AM [facility] Potassium 4.5 3.4 - 5.3 05/03/2018 [place] mmol/L 10:33 AM [facility] Chloride 100 94 - 109 05/03/2018 [place] mmol/L 10:33 AM [facility] Carbon Dioxide 31 20 - 32 05/03/2018 [place] mmol/L 10:33 AM [facility] Anion Gap 7 3 - 14 05/03/2018 [place] mmol/L 10:33 AM [facility] Glucose 150 (H) 70 - 99 05/03/2018 [place] mg/dL 10:33 AM [facility] Urea Nitrogen 34 (H) 7 - 30 05/03/2018 [place] mg/dL 10:33 AM [facility] Creatinine 1.25 0.66 - 05/03/2018 [facility] 1.25 mg/dL 10:33 AM [facility] GFR Estimate 56 (L) >60 05/03/2018 [place] mL/min/1.7 10:[address] Comment: Non GFR Calc GFR Estimate If 67 >60 mL/min/1.7m2 05/03/2018 10:33 AM [facility] Comment: GFR Calc Calcium 9.2 8.5 - 10.1 mg/dL 05/03/2018 10:33 AM CDT [facility] Specimen Anatomical Collection Method Collection Time Receive d Time (Source) Location / / Volume Laterality Blood specimen 05/03/2018 9:58 AM 018 9:59 (specimen) CDT AM CDT Timothy Smith MD LAB - BLOOD ORDERABLES Performing Organization Address City/State/ZIP Code Phon e Number [place] [address] [address] [place], [place] [address] [phone] [facility] [address] [place], [place] [address] [place] [address] documented in this encounter Visit Diagnoses Diagnosis Ischemic cardiomyopathy Other specified forms of chronic ischemi c heart disease Persistent atrial fibrillation (H) Atrial fibrillation documented in this encounter Care Teams Business Area Manager Relationship Specialty Start Date End Date [facility], Vinny Jaimes PCP - General 01/16/18 07/01/18 [address] [place] [address] documented as of this encounter
--- OUTSIDE RECORDS SUMMARY | 2022-06-22 08:56 | XMS_ITS | Encounter Summary ---
:1940 Author Organization [place] Address [address] [place] [address] Care Team Providers Name Role [facility] [phone] Reason for Visit (Routine) - Closed Specialty Diagnoses / Procedures Referred By Contact Refer red To Contact Cardiology Diagnoses Per Sarah Persistent atrial fibrillation Rh Echo cc Procedures [facility] [address] [place] [address] [place], [place] [address] Phone: Fax: Referral ID Status Reason Start Date Expiration Date Visits Requ ested Visits Authorized [id number] Closed 06/26/2018 06/26/2019 1 1 Encounter Details Date Type Department Care Team Description 06/26/[address] [facility] Ankur Smith MD [facility] [address] [facility] fibrillat ion (H) [facility] [address] [address] [place] [address] [address] [place], [place] (Work) [phone] Social History Tobacco Use [...] Take 160 mg by 0 mouth daily. acetaminophen-codeine Take 1-2 tablets by 10 tablet [...] 5 minutes after 1st dose call 911. PANTOPRAZOLE SODIUM PO Take 40 mg by mouth 0 07/07/2020 every morning (before breakfast). pravastatin (PRAVACHOL) Take 80 mg by mouth 0 06/30/2021 80 MG tablet At Bedtime documented as of this encounter Plan of Treatment Upcoming Encounters Date Type Specialty Care Team Description 06/26/2022 Ancillary Procedure Cardiology Seng Canchola MD [address] [place] [id number] (Wo rk) 08/16/2022 Ancillary Procedure Cardiology Ankur Smith MD [address] [place] [id number] (Wo rk) 08/16/2022 Office Visit Cardiology Ankur Smith MD [address] [place] [phone] (Wo rk) documented as of this encounter Procedures Procedure Name Priority Date/Time Associated Diagnosis Comme nts ECHO LIMITED WITH Routine 06/26/2018 10:58 Persistent atrial R esults for this OPTISON AM CDT fibrillation (H) procedure a re in the results section. documented in this encounter Results ECHO LIMITED WITH OPTISON (06/26/2018 10:58 AM CDT) Anatomical Region Laterality Modality Echocardiography Specimen (Source) Anatomical Collection Method Collection Time Re ceived Time Location / / Volume Laterality 06/26/2018 10:37 AM CDT Narrative 06/26/2018 1:09 PM CDT [id number]^SARAH^ANKUR [facility] Echocardiography Laboratory [address] [place] [id number] Name: RADHA VILLA : 1940 Study Date: 06/26/2018 10:37 AM Age: 77 yrs Gender: Male Patient Location: [facility] Reason For Study: Persistent atrial fibr illation (H) Ordering Physician: ANKUR SMITH Referring Physician: Kemar [facility] Performed By: Britany Sales RDCS BSA: 2.5 m2 Height: 71 in Weight: 302 lb HR: 81 BP: 117/71 mmHg __ Procedure Limited Echo Adult. Contrast Optison. __ Interpretation Summary Technically difficult imaging The rhythm was atrial fibrillation. Left ventricular systolic function is mi ldly reduced. The visual ejection fraction is estimate d at 45-50%. There is mild to moderate concentric lef t ventricular hypertrophy. There is moderate biatrial enlargement. Doppler interogation does not demonstrat e significant stenosis or insufficiency involving cardiac valves. No change since 04/30/2018. __ Left Ventricle The left ventricle is normal in size. Th ere is mild to moderate concentric left ventricular hypertrophy. Left ventr icular systolic function is mildly reduced. The visual ejection fraction is estimated at 45-50%. Left ventricular diastolic function is indeterminate. No regional wall motion abnormalities noted. There is no thrombus seen in the left ventricle. Right Ventricle The right ventricle is normal in structu re, function and size. There is no mass or thrombus in the right ventricle. Atria There is moderate biatrial enlargement. The left atrial appendage is not well visualized. Mitral Valve The mitral valve is not well visualized. There is no mitral regurgitation noted. There is no mitral valve stenosis . Tricuspid Valve Normal tricuspid valve. The right ventri cular systolic pressure is approximated at 8.5 mmHg plus the right atrial pressure. Right ventricle systolic pressure estimate normal. There is mild to moderate (1-2+) tricuspid regurgitation. There is no tricuspid raya nosis. Aortic Valve There is mild trileaflet aortic sclerosi s. No aortic regurgitation is present. No aortic stenosis is present. Pulmonic Valve The pulmonic valve is not well visualize d. There is no pulmonic valvular regurgitation. There is no pulmonic valv ular stenosis. Vessels The aortic root is normal size. Normal s ize ascending aorta. Inferior vena cava not well visualized for estimation of right atrial pressure. The pulmonary artery is normal size. Pericardium The pericardium appears normal. There is no pleural effusion. Rhythm The rhythm was atrial fibrillation. __ MMode/2D Measurements & Calculations LA dimension: 5.5 cm LA Volume (BP): 111.0 ml LA Volume Index (BP): 44.2 ml/m2 Doppler Measurements & Calculations MV E max pascual: 95.8 cm/sec MV A max pascual: 59.7 cm/sec MV E/A: 1.6 MV dec time: 0.18 sec TR max pascual: 142.4 cm/sec TR max P.5 mmHg __ Report approved by: Dr. Umair clemente 06/26/2018 01:09 PM Procedure Note Umair Alves MD - 06/26/2018For matting of this note might be different from the original. [id number]^SARAH^ANKUR [facility] Echocardiography Laboratory [address] [place] [address] Name: RAHDA VILLA : 1940 Study Date: 06/26/2018 10:37 AM Age: 77 yrs Gender: Male Patient Location: [facility] Reason For Study: Persistent atrial fibr illation (H) Ordering Physician: ANKUR SMITH Referring Physician: Vinny Reinoso Performed By: Britany Sales RDCS BSA: 2.5 m2 Height: 71 in Weight: 302 lb HR: 81 BP: 117/71 mmHg __ Procedure Limited Echo Adult. Contrast Optison. __ Interpretation Summary Technically difficult imaging The rhythm was atrial fibrillation. Left ventricular systolic function is mi ldly reduced. The visual ejection fraction is estimate d at 45-50%. There is mild to moderate concentric lef t ventricular hypertrophy. There is moderate biatrial enlargement. Doppler interogation does not demonstrat e significant stenosis or insufficiency involving cardiac valves. No change since 04/30/2018. __ Left Ventricle The left ventricle is normal in size. Th ere is mild to moderate concentric left ventricular hypertrophy. Left ventr icular systolic function is mildly reduced. The visual ejection fraction is estimated at 45-50%. Left ventricular diastolic function is indeterminate. No regional wall motion abnormalities noted. There is no thrombus seen in the left ventricle. Right Ventricle The right ventricle is normal in structu re, function and size. There is no mass or thrombus in the right ventricle. Atria There is moderate biatrial enlargement. The left atrial appendage is not well visualized. Mitral Valve The mitral valve is not well visualized. There is no mitral regurgitation noted. There is no mitral valve stenosis . Tricuspid Valve Normal tricuspid valve. The right ventri cular systolic pressure is approximated at 8.5 mmHg plus the right atrial pressure. Right ventricle systolic pressure estimate normal. There is mild to moderate (1-2+) tricuspid regurgitation. There is no tricuspid raya nosis. Aortic Valve There is mild trileaflet aortic sclerosi s. No aortic regurgitation is present. No aortic stenosis is present. Pulmonic Valve The pulmonic valve is not well visualize d. There is no pulmonic valvular regurgitation. There is no pulmonic valv ular stenosis. Vessels The aortic root is normal size. Normal s ize ascending aorta. Inferior vena cava not well visualized for estimation of right atrial pressure. The pulmonary artery is normal size. Pericardium The pericardium appears normal. There is no pleural effusion. Rhythm The rhythm was atrial fibrillation. __ MMode/2D Measurements & Calculations LA dimension: 5.5 cm LA Volume (BP): 111.0 ml LA Volume Index (BP): 44.2 ml/m2 Doppler Measurements & Calculations MV E max pascual: 95.8 cm/sec MV A max pascual: 59.7 cm/sec MV E/A: 1.6 MV dec time: 0.18 sec TR max pascual: 142.4 cm/sec TR max P.5 mmHg __ Report approved by: Dr. Umair clemente 06/26/2018 01:09 PM Ankur Smith MD CV ECHO ORDERABLES documented in this encounter Visit Diagnoses Diagnosis Persistent atrial fibrillation (H) Atrial fibrillation documented in this encounter Administered Medications Inactive Administered Medications - up to 3 most recent administrations Medication Order MAR Action Action Date Dose Rate Site perflutren diluted 1mL to 2mL with Given 06/26/2018 11:00 AM CDT 3 mLs saline (OPTISON) diluted injection 3 mL 3 mL, Intravenous, ONCE, On Sun06/26/18 at 1100, For 1 dose sodium chloride (PF) 0.9% PF flush 10 mL Given 06/26/2018 10:59 AM CDT 10 mLs 10 mL, Intracatheter, ONCE, On Sun06/26/18 at 1100, For 1 dose documented in this encounter Care Teams Adult Specialist Relationship Specialty Start Date End Date Clinic, Vinny Jaimes PCP - General 01/16/18 07/01/18 [address] [place] [phone] documented as of this encounter
--- OUTSIDE RECORDS SUMMARY | 2022-06-22 08:56 | XMS_ITS | Encounter Summary ---
:1940 Author Organization [facility] Address [address] [place] [address] Care Team Providers Name Role Phone [facility], [facility] Primary Care Provider [phone] Reason for Referral - Closed Specialty Diagnoses / Procedures Referred By Contact Refer red To Contact Diagnoses Typical atrial flutter (H) Timothy Smith MD [address] [place] [address] Referral ID Status Reason Start Date Expiration Date Visits Requ ested Visits Authorized [id number] Closed 05/31/2018 05/31/2019 1 1 Encounter Details Date Type Department Care Team Description 05/31/2018 Hospital Encounter [facility] Timothy Smith MD Typical atrial [facility] [address] flutter (H ) [address] [place] [address] [place] [phone] Social History Tobacco Use Types Packs/Day Years Used Date Never Smoker Smokeless Tobacco: Never Used Alcohol Use Standard Drinks/Week Comments No 0 (1 standard drink = 0.6 oz pure alcoho l) Sex Assigned at Date Recorded Not on file documented as of this encounter Last Filed Vital Signs Vital Sign Reading Time Taken Comments Blood Pressure 125/59 05/31/2018 11:06 AM CDT Pulse 76 05/31/2018 11:06 AM CDT Temperature 36.2 ??C (97.2 ??F) 05/31/2018 11:06 AM CDT Respiratory Rate 16 05/31/2018 11:06 AM CDT Oxygen Saturation 93% 05/31/2018 11:06 AM CDT Inhaled Oxygen Concentration - - Weight 137.3 kg (302 lb 9.6 oz) 05/31/2018 11:06 AM CDT Height - - Body Mass Index 42.2 05/21/2018 2:46 PM CDT documented in this encounter Discharge Instructions Discharge InstructionsAnn Marie Reyes RN - 05/31/2018 2:28 PM CDT documented in this encounter Medications at Time [...] Take 1 tablet (5 180 tablet 3 017 06/25/2018 (ELIQUIS) 5 MG mg) by mouth 2 [...] At Bedtime documented as of this encounter Progress Notes Ann Marie Reyes RN - 05/31/2018 2:12 PM CDT Patient is in sinus rhythm/Procedure was cancelled by Dr. Smith. EKG was done. Patient had food/liquids. Family was called. Dr. Smith talked to patient. Patient will stop amiodarone. AVS to patient. Discharged at 1420, ambulatory, with family, independently. After patient was discharged, RN from [facility] called/had changed patient's f/u appointment withDr., and said she would call patient at home. Timothy Smith MD - 05/31/2018 1:44 PM CDT Pt was in sinus rhythm in [address] Suites. He was in atrial fib when the pacemaker was re-interrogated, ventricular rate controlled. Pacemaker interrogation on 05-21-2018 showed atrial flutter with 2:1 AV conduction while amiodarone. He had typical atrial flutter ablation in 02/27/2013. Atrial flutter ablation is not recommended. The scheduled procedure is cancelled. (There was an error in my previous note. Pt had no history of AV node ablation.) Stop amiodarone because he cannot maintain regular sinus rhythm. Continue the other home medications. See me in July 2018. documented in this encounter Plan of Treatment Upcoming Encounters Date Type Specialty Care Team Description 06/26/2022 Ancillary Procedure Cardiology Seng Canchola MD [address] [place], [place] [id number] (Wo rk) 08/16/2022 Ancillary Procedure Cardiology Timothy Smith MD [address] [place], [place] [address] (Wo rk) 08/16/2022 Office Visit Cardiology Timothy Smith MD [address] [place], [place] [address] (Wo rk) Scheduled Referrals Name Type Priority Associated Diagnoses Order S chedule Follow-Up with Referral Routine Typical atrial Expected: [place] Turner flutter (H) 07/30/20 18 (Approximate), Expires: 05/31/2019 documented as of this encounter Procedures Procedure Name Priority Date/Time Associated Diagnosis Comme nts EKG 12-LEAD, STAT 05/31/2018 1:40 PM Results f or this TRACING ONLY CDT procedure are i n the results section. EKG 12-LEAD, STAT 05/31/2018 11:43 AM Results for this TRACING ONLY CDT procedure are i n the results section. BASIC METABOLIC STAT 05/31/2018 11:30 AM Typical atrial Res ults for this PANEL CDT flutter (H) procedure are i n the results section. CBC WITH PLATELETS STAT 05/31/2018 11:30 AM Typical atrial Results for this CDT flutter (H) procedure are i n the results section. documented in this encounter Results EKG 12-lead, tracing only (05/31/2018 1:40 PM CDT) [facility] [place] Method Time Signature Interpretation ECG Click View RADIOLOGY Image link RESULTS to view waveform and result Specimen (Source) Anatomical Collection Method Collection Time Re ceived Time Location / / Volume Laterality 05/31/2018 1:40 PM CDT Timothy Smith MD ECG ORDERABLES Performing Organization Address City/State/ZIP Code Phon e Number RADIOLOGY RESULTS EKG 12-lead, tracing only (05/31/2018 11:43 AM CDT) Patholo gist Method Time Signature Interpretation ECG Click View RADIOLOGY Image link RESULTS to view waveform and result Specimen (Source) Anatomical Collection Method Collection Time Re ceived Time Location / / Volume Laterality 05/31/2018 11:43 AM CDT Timothy Smith MD ECG ORDERABLES Performing Organization Address City/State/ZIP Code Phon e Number RADIOLOGY RESULTS (ABNORMAL) CBC with platelets (05/31/2018 11:30 AM CDT) Analysis Performed At Patho logist Time Signature WBC 7.5 4.0 - 11.0 05/31/2018 [facility] 10e9/L 12:33 PM T [facility] RBC Count 4.39 (L) 4.4 - 5.9 05/31/2018 [facility] 10e12/L 12:33 PM [facility] Hemoglobin 14.0 13.3 - 05/31/2018 [facility] 17.7 g/dL 12:33 PM [facility] Hematocrit 42.3 40.0 - 05/31/2018 [facility] 53.0 % 12:33 PM [facility] MCV 96 78 - 100 05/31/2018 [facility] fl 12:33 PM [facility] MCH 31.9 26.5 - 05/31/2018 [facility] 33.0 pg 12:33 PM [facility] MCHC 33.1 31.5 - 05/31/2018 [facility] 36.5 g/dL 12:33 PM [facility] RDW 14.8 10.0 - 05/31/2018 [facility] 15.0 % 12:33 PM [facility] Platelet Count 228 150 - 450 05/31/2018 [facility] 10e9/L 12:33 PM [facility] Specimen Anatomical Collection Method Collection Time Receive d Time (Source) Location / / Volume Laterality Blood specimen 05/31/2018 11:30 8 (specimen) AM CDT 12:30 PM CDT Timothy Smith MD LAB - BLOOD ORDERABLES Performing Organization Address City/State/ZIP Code Phon e Number [facility] [address] [phone] [facility] [address] [address], [place] [phone] (ABNORMAL) Basic metabolic panel (05/31/2018 11:30 AM CDT) P athologist Signature Sodium 140 133 - 144 05/31/2018 [place] mmol/L 12:50 PM [facility] Potassium 4.2 3.4 - 5.3 05/31/2018 [place] mmol/L 12:50 PM [facility] Chloride 104 94 - 109 05/31/2018 [place] mmol/L 12:50 PM [facility] Carbon Dioxide 29 20 - 32 05/31/2018 [place] mmol/L 12:50 PM [facility] Anion Gap 7 3 - 14 05/31/2018 [place] mmol/L 12:50 PM [facility] Glucose 119 (H) 70 - 99 05/31/2018 [place] mg/dL 12:50 PM [facility] Urea Nitrogen 27 7 - 30 05/31/2018 [place] mg/dL 12:50 PM [facility] Creatinine 1.20 0.66 - 05/31/2018 [place] 1.25 mg/dL 12:50 PM [facility] GFR Estimate 58 (L) >60 05/31/2018 [place] mL/min/1.7 12:[address] Comment: Non GFR Calc GFR Estimate If 71 >60 mL/min/1.7m2 05/31/2018 12:50 PM [facility] Comment: GFR Calc Calcium 9.1 8.5 - 10.1 mg/dL 05/31/2018 12:50 PM [facility] Specimen Anatomical Collection Method Collection Time Receive d Time (Source) Location / / Volume Laterality Blood specimen 05/31/2018 11:30 8 (specimen) AM CDT 12:30 PM CDT Timothy Smith MD LAB - BLOOD ORDERABLES Performing Organization Address City/State/ZIP Code Phon e Number [facility] [address] [phone] [facility] [address] [address], [place] [phone] documented in this encounter Visit Diagnoses Diagnosis Typical atrial flutter (H) Atrial flutter documented in this encounter Administered Medications Inactive Administered Medications - up to 3 most recent administrations Medication Order MAR Action Action Date Dose Rate Site 0.45% sodium chloride infusion New Bag 05/31/2018 11:31 AM 30 mL/hr at 30 mL/hr, Intravenous, CDT CONTINUOUS, Start 2 hours pre-procedure and then per provider direction intra-procedure. Pre-procedurally for CAR electrophysiology studies., Cardiac Pre-procedure, Starting on Sun05/31/18 at 1130, Until Sun05/31/18 at 1621 HOLD all oral hypoglycemics glipiZIDE (GLUCOTROL), gly BURIDE (DIABETA/MICRONASE/GLYNASE), glimepiride (AMARYL), gli clazide, rosiglitazone (AVANDIA), pioglitazone (ACTOS), sitagli ptin (JANUVIA), saxagliptin (ONGLYZA) and linagliptin (TRAJENTA) metformin (GLUCOPHAGE, GLUMETZA , FORTAMET, RIOMET) and metformin containing medications: alogliptin/metformin (KAZANO), glipizide/metformin (METAGLIP), glyburide/metformin (G LUCOVANCE), rosiglitazone/metformin (AVANDAMET), dapagliflozin/met formin (XIGDUO XR), sitagliptin/metformin (JANUMET, JANUMET XR), linagliptin/metformin (JENTADUETO), repaglinide/metformin (PRANDIMET), saxagliptin/metform in (KOMBIGLYZE XR), canagliflozin/metformin (INVOKAMET), and pioglitazone/ metformin (ACTOPLUS MET, ACTOPLUS MET XR) the morning of the proc edure. Medication(s) to hold: oral hypoglycemics, Parameter f or hold (doses,days,conditions) : Hold before Pr ocedure or Test, Hours or days to hold med before/after procedure/surgery: hold mor candie of procedure, HOLD, Starting on Sun05/31/18 at 1124, Until Sun05/31/18 at 1621, Cardiac Pr e-procedure lidocaine (LMX4) cream Topical, EVERY 1 HOUR PRN, pain, with VA D insertion or accessing implanted port., Starting on Sun05/31/18 at 1124, For 365 days, Do NOT give if patient has a history of allergy to any local anesthetic or an y gabino product. Apply 30 minutes prior to VAD insertion or port access. MAX Dose: 2.5 g (?? o f 5 g tube), Cardiac Pre-procedure lidocaine 1 % 1 mL 1 mL, Other, EVERY 1 HOUR PRN, mild pain with VAD insertion or accessing implanted port, Starting on Sun05/31/18 at 1124, F or 365 days, Do NOT give if patient has a history of allergy to any local anesthet ic or any gabino product. MAX dose 1 mL subcutaneous OR intradermal in divided doses., Cardiac Pre-procedure sodium chloride (PF) 0.9% PF flush 3 mL 3 mL, Intracatheter, EVERY 1 HOUR PRN, l ine flush, Starting on Sun05/31/18 at 1124, For 365 days, for peripheral IV flush post IV meds, Ca rdiac Pre-procedure sodium chloride (PF) 0.9% PF flush 3 mL 3 mL, Intracatheter, EVERY 8 HOURS, First dose on Sun05/31/18 at 1130, For 365 days, And Q1H PRN, to lock peripheral IV dormant line. , Cardiac Pre-procedure documented in this encounter Active and Recently Administered Medications Times are shown in CDT. Scheduled Medication Order 05/29/2018 05/30/2018 05/31/2018 sodium chloride (PF) 0.9% PF flush 3 mL 1130 (Canceled Entry - Provider: Orders Generic Provider - Comment: Automatically canceled at discontinue of medication order) 3 mL, Intracatheter, EVERY 8 HOURS, Firs t dose on Sun05/31/18 at 1130, For 365 days, And Q1H PRN, to lock peripheral IV dormant line., Cardiac Pre-procedure Continuous Medication Order 05/29/2018 05/30/2018 05/31/2018 0.45% sodium chloride infusion 1 131 (New Bag - Provider: Aruna Garza RN) at 30 mL/hr, Intravenous, CONTINUOUS, St art 2 hours pre-procedure and then per provider direction intra-procedure. Pre-procedurally for CAR electrophysiology studies., Cardiac Pre-procedure, Starting Sun05/31/18 at 1130, Until Sun05/31/18 at 1621 PRN Medication Order 05/29/2018 05/30/2018 05/31/2018 HOLD all oral hypoglycemics glipiZIDE (G LUCOTROL), glyBURIDE (DIABETA/MICRONASE/GLYNASE), glimepiride (AMARYL), gliclazide, rosiglitazone (AVANDIA), pioglitazone (ACTOS), sitagliptin (JANUVIA), saxaglip tin (ONGLYZA) and linagliptin (TRAJENTA) metformin (GLUCOPHAGE, GLUMETZA, FORTAMET, RIOMET) and metformin containing medications: alogliptin/metformin (KAZANO), glipizide/metformin (METAGLIP), glyburide /metformin (GLUCOVANCE), rosiglitazone/m etformin (AVANDAMET), dapagliflozin/metformin (XIGDUO XR), sitagliptin/metformin (JANUMET, JANUMET XR), linagliptin/metformin (JENTADUETO), repaglinide/metformin (PRANDIMET), saxagliptin/metformin (KOMB IGLYZE XR), canagliflozin/metformin (INVOKAMET), and pioglitazone/metformin (ACTOPLUS MET, ACTOPLUS MET XR) the morning of the procedure. Medication(s) to hold: oral hypoglycemic s, Parameter for hold (doses,days,conditions) : Hold before Procedure or Test, Hours or days to hold med before/after procedure/surgery: hold morning of procedure , HOLD, Starting Sun05/31/18 at 1124, Un til Sun05/31/18 at 1621, Cardiac Pre-procedure lidocaine (LMX4) cream Topical, EVERY 1 HOUR PRN, pain, with VA D insertion or accessing implanted port., Starting Sun05/31/18 at 1124, For 365 days, Do NOT give if patient has a history of allergy to any local anesthetic or a ny gabino product. Apply 30 minutes stacey or to VAD insertion or port access. MAX Dose: 2.5 g (?? of 5 g tube), Cardiac Pre-procedure lidocaine 1 % 1 mL 1 mL, Other, EVERY 1 HOUR PRN, mild pain with VAD insertion or accessing implanted port, Starting Sun05/31/18 at 1124, For 365 days, Do NOT give if patient has a history of allergy to any local anesthet ic or any gabino product. MAX dose 1 mL subcutaneous OR intradermal in divided doses., Cardiac Pre-procedure sodium chloride (PF) 0.9% PF flush 3 mL 3 mL, Intracatheter, EVERY 1 HOUR PRN, l ine flush, Starting Sun05/31/18 at 1124, For 365 days, for peripheral IV flush post IV meds, Cardiac Pre-procedure documented in this encounter Care Teams Operations Coordinator Relationship Specialty Start Date End Date [facility], [facility] PCP - General 01/16/18 07/01/18 [address] [place] [address] documented as of this encounter
--- OUTSIDE RECORDS SUMMARY | 2022-06-22 08:56 | XMS_ITS | Encounter Summary ---
:1940 Author Organization [facility] Address [address] [place] [address] Care Team Providers Name Role Phone [facility], [facility] Primary Care Provider Reason for Visit Reason Comments Pacemaker Check annual - Closed Specialty Diagnoses / Procedures Referred By Contact Refer red To Contact Diagnoses Paroxysmal atrial fibrillation (H) [facility] [phone] [place] [phone] Referral ID Status Reason Start Date Expiration Date Visits Requ ested Visits Authorized [id number] Closed 05/20/2018 05/20/2019 1 1 Encounter Details Date Type Department Care Team Description 05/21/2018 [facility] Timothy Smith MD Pacemaker Check Health/Nurse [facility] [address] [facility][1] (annual) Visit [phone] [place] [address] [place] [phone] Social History Tobacco Use Types Packs/Day Years Used Date Never Smoker Smokeless Tobacco: Never Used Alcohol Use Standard Drinks/Week Comments No 0 (1 standard drink = 0.6 oz pure alcoho l) Sex Assigned at Date Recorded Not on file documented as of this encounter Progress Notes Sarina Carty RN - 05/21/2018 2:30 PM CDT [employer] (D) Pacemaker Device Check AP: 0 % DRY WALL INSTALLER: 34 % Mode: DDDR 60-130 Underlying Rhythm: 2:1 AFL with VR 70s Heart Rate: adequate variability Sensing: WNL Pacing Threshold: A-not obtained V-WNL Impedance: WNL Battery Status: estimated 12 years Device Site: remains well healed Atrial Arrhythmia: 11 ATR episodes recorded since 05/08 all less than 30 seconds - see note below Ventricular Arrhythmia: none Setting Change: His ATR mode switch trigger rate was set to 150, his presenting atrial rate was anywhere from 140-147 so his pacemaker is not appropriately mode switching - dropped trigger rate to 140 bpm and he mode switched appropriately Care Plan: remote check on 08/27, he is seeing Elda today, too. SK documented in this encounter Plan of Treatment Upcoming Encounters Date Type Specialty Care Team Description 06/26/2022 Ancillary Procedure Cardiology Seng Canchola MD [address] [place], [place] [phone] (Wo rk) 08/16/2022 Ancillary Procedure Cardiology Timothy Smith MD [address] [place] [address] (Wo rk) 08/16/2022 Office Visit Cardiology Timothy Smith MD [address] [place] [address] (Wo rk) documented as of this encounter Procedures Procedure Name Priority Date/Time Associated Diagnosis Comme [facility] PM DEVICE PROGRAMMING Routine 05/21/2018 Cardiac pacemaker in situ EVAL, SINGLE LEAD/LEADLESS SSS (sick sinu s syndrome) PACER (H) documented in this encounter Results PM DEVICE PROGRAMMING EVAL, SINGLE LEAD PACER (32358) (05/21/2018) Narrative This result has an attachment that is no t available. Timothy Smith MD PROCEDURES documented in this encounter Visit Diagnoses Diagnosis Cardiac pacemaker in situ - Primary SSS (sick sinus syndrome) (H) Sinoatrial node dysfunction documented in this encounter Care Teams Bid Writer Relationship Specialty Start Date End Date [facility], Vinny [place] PCP - General 01/16/18 07/01/18 [address] [place] [address] documented as of this encounter
--- OUTSIDE RECORDS SUMMARY | 2022-06-22 08:56 | XMS_ITS | Encounter Summary ---
:1940 Author Organization [facility] Address [address] [place] [address] Care Team Providers Name Role Phone [facility], [facility] Primary Care Provider [phone] Reason for Visit Reason Comments Pacemaker Check Rep check post cardioversion Encounter Details Date Type Department Care Team Description 05/07/2018 Documentation Only [facility] Fabiola Hurtado Check (Rep [facility] [place] Bui RN, RN check post [address] [facility] HEART cardio vers... [address] [place] [address] [phone] [address] [place] [address] Social History Tobacco Use Types Packs/Day Years Used Date Never Smoker Smokeless Tobacco: Never Used Alcohol Use Standard Drinks/Week Comments No 0 (1 standard drink = 0.6 oz pure alcoho l) Sex Assigned at Date Recorded Not on file documented as of this encounter Progress Notes Fabiola Hurtado RN, RN - 05/07/2018 1:19 PM CDT [employer] PPM REP CHECK POST CARDIOVERSION Leads stable post cardioversion. Device reprogrammed from VVIR back to DDDR to track episodes. Battery shows 13.5 years remaining. Counters reset. Presenting rhythm post cardioversion is sinus with first degree AV block and frequent PAC's. Pt has been started on Amiodarone to maintain sinus rhythm. continue on current schedule. SIENNA Cowart documented in this encounter Plan of Treatment Upcoming Encounters Date Type Specialty Care Team Description 06/26/2022 Ancillary Procedure Cardiology Seng Canchola MD [address] [place] [address] (Wo rk) 08/16/2022 Ancillary Procedure Cardiology Timothy Smith MD [address] [place] [address] (Wo rk) 08/16/2022 Office Visit Cardiology Timothy Smith MD [address] [place] [address] (Wo rk) documented as of this encounter Visit Diagnoses Not on filedocumented in this encounter Care Teams Mathematics Technician Relationship Specialty Start Date End Date [facility], Vinny [place] PCP - General 01/16/18 07/01/18 [address] [place] [address] documented as of this encounter
--- OUTSIDE RECORDS SUMMARY | 2022-06-22 08:56 | XMS_ITS | Encounter Summary ---
:1940 Author Organization [facility] Address [address] [place] [address] Care Team Providers Name Role Phone Slava Hernandez PA-C Primary Care Provider Encounter Details Date Type Department Care Team Description 09/27/2018 Telephone [facility] Zarina Smith MD [facility] [address] [facility] [address] [place] [address] [facility] [address] [place] [address] [phone] Social History Tobacco Use Types Packs/Day Years Used Date Never Smoker Smokeless Tobacco: Never Used Alcohol Use Standard Drinks/Week Comments No 0 (1 standard drink = 0.6 oz pure alcoho l) Sex Assigned at Date Recorded Not on file documented as of this encounter Miscellaneous Notes Telephone Encounter - Catherine Aranda LPN - 09/27/2018 4:29 PM CST [employer] looking to refill Amiodarone, which per Dr Claire dictation from 07-02-2018 Has been discontinued-I call ed to let pharmacy know-yvette cum[facility] documented in this encounter Plan of Treatment Upcoming Encounters Date Type Specialty Care Team Description 06/26/2022 Ancillary Procedure Cardiology Seng Canchola MD [address] [place] [phone] (Wo rk) 08/16/2022 Ancillary Procedure Cardiology Timothy Smith MD [address] [place] [phone] (Wo rk) 08/16/2022 Office Visit Cardiology Timothy Smith MD [address] [place] [phone] (Wo rk) documented as of this encounter Visit Diagnoses Not on filedocumented in this encounter Care Teams Therapeutic Consultant Relationship Specialty Start Date End Date Slava Hernandez PAIlanaC PCP - General Physician Measurement Superintendent 07/02/18 06/29/21 [facility] [address] [place] [address] documented as of this encounter
--- OUTSIDE RECORDS SUMMARY | 2022-06-22 08:56 | XMS_ITS | Encounter Summary ---
:1940 Author Organization [place] Address [address] [place] [address] Care Team Providers Name Role Phone [facility], [facility] Primary Care Provider [phone] Reason for Referral CV Testing - Closed Specialty Diagnoses / Procedures Referred By Contact Refer red To Contact Diagnoses Persistent atrial fibrillation (H) Ankur Smith MD Procedures Cardioversion [address] [place] [id number] Referral ID Status Reason Start Date Expiration Date Visits Requ ested Visits Authorized [id number] Closed 05/07/2018 05/07/2019 1 1 Reason for Visit CV Testing - Closed Specialty Diagnoses / Procedures Referred By Contact Refer red To Contact Diagnoses Persistent atrial fibrillation (H) Ankur Smith MD Procedures Cardioversion [address] [place] [id number] Referral ID Status Reason Start Date Expiration Date Visits Requ ested Visits Authorized [id number] Closed 05/07/2018 05/07/2019 1 1 Encounter Details Date Type Department Care Team Description 05/07/2018 Hospital Encounter [facility] Ankur Smith MD Persistent atrial [place] PACU [address] fibrillation (H) [address] [place] [phone] (work) Social History Tobacco Use Types Packs/Day Years Used Date Never Smoker Smokeless Tobacco: Never Used Alcohol Use Standard Drinks/Week Comments No 0 (1 standard drink = 0.6 oz pure alcoho l) Sex Assigned at Date Recorded Not on file documented as of this encounter Last Filed Vital Signs Vital Sign Reading Time Taken Comments Blood Pressure 110/86 05/07/2018 10:10 AM CDT Pulse 90 05/07/2018 8:48 AM CDT Temperature 36.2 ??C (97.1 ??F) 05/07/2018 8:48 AM CDT Respiratory Rate 16 05/07/2018 10:10 AM CDT Oxygen Saturation 95% 05/07/2018 10:10 AM CDT Inhaled Oxygen Concentration - - Weight - [...] for Sinoatrial node moderate pain dysfunction (H) amiodarone Take 2 tablets (200 16 tablet 0 05/07/201805/31 (PACERONE/CODARONE) 100 mg) by mouth daily MG TABS tabletIndications: Persistent atrial fibrillation (H) apixaban ANTICOAGULANT Take 1 tablet (5 180 tablet 3 017 06/25/2018 (ELIQUIS) 5 MG mg) by mouth 2 tabletIndications: times daily Paroxysmal atrial fibrillation (H) celecoxib (CELEBREX) 200 Take 200 mg by 0 06/30/2021 MG capsule mouth 2 times daily furosemide (LASIX) 40 MG Take 1 tablet (40 30 tablet 3 04/0205/21/2018 tabletIndications: mg) by mouth 2 Ischemic cardiomyopathy [...] 0 06/30/2021 80 MG tablet At Bedtime spironolactone Take by mouth daily 0 0 05/21/2018 (ALDACTONE) 25 MG tablet documented as of this encounter Progress Notes Mary Geiger RN - 05/07/2018 10:30 AM CDT Spoke to Dr. Smith about patient being in afib. He would like patient to followup next week at the clinic with [facility]. He will set up appt. documented in this encounter Miscellaneous Notes Op Note - Ankur Smith MD - 05/07/2018 10:15 AM CDT Procedure Date: 05/07/2018 DATE OF PROCEDURE: 05/07/2018 PROCEDURE: DC cardioversion of atrial fibrillation. INDICATIONS FOR PROCEDURE: Mr. Villa is a 77-year-old white male with history of sinus node dysfunction and chronic atrial fibrillation. At the present time, he has coronary artery disease with relatively preserved ejection fraction. The patient presented with shortness of breath and leg edema. He hasbeen treated with more aggressive diuretic therapy and the patient is scheduled for cardioversion because there is suspicion that the atrial fibrillation is contributing to his symptoms of congestive heart failure. He has been treated with amiodarone. PROCEDURE AND RESULTS: After the written informed consent was obtained, the patient was brought to the PACU in the fasting state. The procedure was performed under deep sedation assisted by the college advisor. The patches were placed in anterior and posterior fashion. A single shock of 200 joules successf ully converted to sinus rhythm. He had short runs of atrial fibrillation and atrial flutter post-cardioversion. There was no complication. ANKUR SMITH MD MT: CC Name: RADHA VILLA Account: [id number] : 1940 Procedure Date: 05/07/2018 Document: [id number] documented in this encounter Plan of Treatment Upcoming Encounters Date Type Specialty Care Team Description 06/26/2022 Ancillary Procedure Cardiology Seng Canchola MD [address] [place] [address] [place] [id number] (Wo rk) 08/16/2022 Ancillary Procedure Cardiology Ankur Smith MD [address] [place] [address] (Wo rk) 08/16/2022 Office Visit Cardiology Ankur Smith MD [address] [place] [address] (Wo rk) Scheduled Orders Name Type Priority Associated Diagnoses Order S chedule Cardioversion Echocardiography Routine Persistent atrial 1 Occ urrences starting fibrillation (H) 05/07/2018 until 05/07/2018 documented as of this encounter Procedures Procedure Name Priority Date/Time Associated Diagnosis Comme nts POTASSIUM STAT 05/07/2018 8:58 AM Persistent atrial Resu lts for this CDT fibrillation (H) procedure a re in the results section. MAGNESIUM STAT 05/07/2018 8:58 AM Persistent atrial Resu lts for this CDT fibrillation (H) procedure a re in the results section. GLUCOSE STAT 05/07/2018 8:58 AM Persistent atrial Resu lts for this CDT fibrillation (H) procedure a re in the results section. documented in this encounter Results (ABNORMAL) Glucose (05/07/2018 8:58 AM CDT) P athologist Signature Glucose 162 (H) 70 - 99 05/07/2018 [place] mg/dL 9:32 AM CDT [facility] Specimen Anatomical Collection Method Collection Time Receive d Time (Source) Location / / Volume Laterality Blood specimen 05/07/2018 8:58 AM 018 9:13 (specimen) CDT AM CDT Serge De Leon MD LAB - BLOOD ORDERABLES Performing Organization Address City/State/ZIP Code Phon e Number M [facility] [address] [place] [address] [phone] [facility] [address] [place] [address], [place] [phone] Potassium level (05/07/2018 8:58 AM CDT) P athologist Signature Potassium 3.7 3.4 - 5.3 05/07/2018 [place] mmol/L 9:32 AM CDT [facility] Specimen Anatomical Collection Method Collection Time Receive d Time (Source) Location / / Volume Laterality Blood specimen 05/07/2018 8:58 AM 018 9:13 (specimen) CDT AM CDT Ankur Smith MD LAB - BLOOD ORDERABLES Performing Organization Address City/State/ZIP Code Phon e Number M [facility] [address] [place] [address] [phone] [facility] [address] [place] [address], [place] [phone] Magnesium level (05/07/2018 8:58 AM CDT) P athologist Signature Magnesium 1.7 1.6 - 2.3 05/07/2018 [place] mg/dL 9:32 AM CDT [facility] Specimen Anatomical Collection Method Collection Time Receive d Time (Source) Location / / Volume Laterality Blood specimen 05/07/2018 8:58 AM 018 9:13 (specimen) CDT AM CDT Ankur Smith MD LAB - BLOOD ORDERABLES Performing Organization Address City/State/ZIP Code Phon e Number M [facility] [address] [place] [address] [phone] [facility] [address] [place] [address], [place] [phone] documented in this encounter Visit Diagnoses Diagnosis Persistent atrial fibrillation (H) Atrial fibrillation documented in this encounter Administered Medications Inactive Administered Medications - up to 3 most recent administrations Medication Order MAR Action Action Date Dose Rate Site lactated ringers infusion New Bag 05/07/2018 9:45 AM CDT 10 mL/hr at 10 mL/hr, Intravenous, ONCE, Pre-procedure, 1 dose, On Sun05/07/18 at 0845 lidocaine 1 % 0.5 mg Given 05/07/2018 9:45 AM CDT 0.5 mg 0.5 mg, Subcutaneous, ONCE, On Sun05/07/18 at 0845, For 1 dose, Pre-procedure documented in this encounter Care Teams Airdrop Systems Technician Relationship Specialty Start Date End Date Clinic, [facility] PCP - General 01/16/18 07/01/18 [id number] [place] [address] documented as of this encounter
--- OUTSIDE RECORDS SUMMARY | 2022-06-22 08:56 | XMS_ITS | Encounter Summary ---
:1940 Author Organization [place] Address [address] [place] [address] Care Team Providers Name Role Phone [facility] Primary Care Provider [phone] Encounter Details Date Type Department Care Team Description 05/28/2018 [facility] Heart Aravind Sunshine, [facility] [place] [address] [facility] [address] [place] [address] Social History [...] Seng Canchola MD [address] [facility] [address] [place] [phone] (Wo rk) 08/16/2022 Ancillary Procedure Cardiology Timothy Smith MD [address] [place] [id number] (Wo rk) 08/16/2022 Office Visit Cardiology Timothy Smith MD [address] [place] [id number] (Wo rk) documented as of this encounter Visit Diagnoses Not on filedocumented in this encounter Care Teams Traffic Court Magistrate Relationship Specialty Start Date End Date Clinic, [facility] PCP - General 01/16/18 07/01/18 [address] [place] [address] documented as of this encounter
--- OUTSIDE RECORDS SUMMARY | 2022-06-22 08:56 | XMS_ITS | Encounter Summary ---
:1940 Author Organization [place] Address [address] [place] [address] Care Team Providers Name Role Phone [facility], [facility] Primary Care Provider [phone] Encounter Details Date Type Department Care Team Description 05/07/2018 Anesthesia Event [facility] Ryann Chino MD [facility] [address] [place] [address] [facility] Ginger Santana, FLACO PLASTER APPLICATOR [address] [place] [address] [address] [place] [place] [phone] Anesthesia Record Procedure Summary Procedure Name Responsible Anesthesia Start Anesthesia Stop Anesthesiologist Time Time ECHO CARDIOVERSION - Derek Chino, 05/07/18 0951 0958 ECHO DEPARTMENT MD Events Date Time Event Comment 05/07/2018 0951 An Start 0951 An Start Data 0951 Quick Note Diagnosis:atriaL fibrillation Procedure: Cardioversion Screening Representative:Dr Smith Location:[facility] PACU room 12 0952 An Induction 09 0958 an stop data 0958 An Stop Electronically s igned by Ginger Santana on May 07, 2018 9:58 AM Name Total propofol (DIPRIVAN) injection 10 mg/mL vial 70 mg lactated ringers infusion 100 mL Agents Name NO HELIOX O2 N2O Air Exp Sevoflurane Exp Isoflurane Exp Desflurane Exp N2O O2 Delivery Device Ins Sevoflurane Ins Isoflurane Ins Desflurane O2 Auxiliary Blood No blood administrations on file. Lines, Drains, and Airways Type Details Placement Removal Incision/Surgical Site 02/27/13; 1433; 02/27/13 1433 by Anterior, Left; Leyda Alexandre, Chest RN Incision/Surgical Site 02/27/13; 1434; 02/27/13 1434 by Other (Comment) Leyda Alexandre, RN Right Groin Interventional 02/03/16; 03/22/21; 02/03/16 0000 by 03/22/21 0105 by Procedure Access 0105 Sintia Ahuja, Inpatient, Nurse RN Peripheral IV 05/07/18; 09; 05/07/18 0915 by 03/22/21 010 5 by G; Right; Hand Lindsay Freitas Inpatient, N carlos Mcgee RN Retired Non-Surgical 05/07/18; 951; 05/07/18 0952 by 03/22/21 0 105 by Airway Easy; Ginger Mclaughlin, MATCHING MACHINE OPERATOR Inpatient, Nurse PLASTER APPLICATOR documented in this encounter Social History Tobacco Use Types Packs/Day Years Used Date Never Smoker Smokeless Tobacco: Never Used Alcohol Use Standard Drinks/Week Comments No 0 (1 standard drink = 0.6 oz pure alcoho l) Sex Assigned at Date Recorded Not on file documented as of this encounter OR Notes Anesthesia Postprocedure Evaluation - Derek Chino MD - 05/15/2018 3:29 PM CDT Patient: Haris Villa * No procedures listed * Diagnosis:* No pre-op diagnosis entered * Diagnosis Additional Information: No value filed. Anesthesia Type: General, Other Note: Anesthesia Post Evaluation Patient location during evaluation: PACU Patient participation: Able to fully participate in evaluation Level of consciousness: awake Pain management: adequate Airway patency: patent Cardiovascular status: acceptable Respiratory status: acceptable Hydration status: acceptable PONV: none Last vitals: Vitals: 05/07/18 0848 05/07/18 1004 05/07/18 1010 BP: 122/68 113/76 110/86 Pulse: 90 Resp: 18 20 16 Temp: 36.2 ??C (97.1 ??F) SpO2: 94% 95% 95% Electronically Signed By: Derek Chino MD May 15, 2018 3:29 PM Anesthesia Preprocedure Evaluation - Derek Chino MD - 05/07/2018 9:56 AM CDT Procedure: Cardioversion Preop diagnosis: Atrial Fibrillation Allergies Allergen Reactions ??? No Known Allergies Past Medical History: Diagnosis Date ??? Arthritis [...] REPAIR ??? ORTHOPEDIC SURGERY ??? rotator cuff Social History Substance Use Topics ??? Smoking status: Never Smoker ??? Smokeless tobacco: Never Used ??? Alcohol use No Prior to Admission medications Medication Sig Start Date End Date Taking? Authorizing Provider apixaban ANTICOAGULANT (ELIQUIS) 5 MG tablet Take 1 tablet (5 mg) by mouth 2 times daily 05/25/17 YesTimothy Smith MD celecoxib (CELEBREX) 200 MG capsule Take 200 mg by mouth 2 times daily Yes Reported, Patient fenofibrate 160 MG tablet Take 160 mg by mouth daily. Yes Reported, Patient furosemide (LASIX) 40 MG tablet Take 1 tablet (40 mg) by mouth 2 times daily 04/30/18 Yes Timothy Smith MD GLIPIZIDE PO Take 5 mg by mouth 2 times daily (before meals) Yes Unknown, Entered By History metFORMIN (GLUCOPHAGE) 500 MG tablet Take 2 tablets (1,000 mg) by mouth 2 times daily (with meals) 02/04/16 Yes Joe Salomon, DO metoprolol (TOPROL-XL) 100 MG 24 hr tablet Take 1 tablet (100 mg) by mouth daily 10/08/17 Yes Timothy Smith MD PANTOPRAZOLE SODIUM PO Take 40 mg by mouth every morning (before breakfast). Yes Reported, Patient pravastatin (PRAVACHOL) 80 MG tablet Take 80 mg by mouth At Bedtime Yes Reported, Patient acetaminophen-codeine (TYLENOL #3) 300-30 MG per tablet Take 1-2 tablets by mouth every 4 hours as needed for moderate pain 02/04/16 Joe Salomon, DO ACYCLOVIR 400 MG OR TABS 1 TABLET 3 TIMES DAILY-as need for Cold sores 04/25/04 amiodarone (PACERONE/CODARONE) 100 MG TABS tablet Take 2 tablets (200 mg) by mouth daily 04/30/18 Timothy Smith MD nitroglycerin (NITROSTAT) 0.[address] 0.4 mg under the tongue every 5 minutes as needed for chest pain For chest pain place 1 tablet under the tongue every 5 minutes for 3 doses. If symptoms persist 5 minutes after 1st dose call 911. Reported, Patient spironolactone (ALDACTONE) 25 MG tablet Take by mouth daily Reported, Patient Current Facility-Administered Medications Ordered in [facility] Medication Dose Route Frequency Last Rate Last Dose ??? propofol (DIPRIVAN) injection 10 mg/mL vial PRN 70 mg at 05/07/18 0952 No current [facility]-ordered outpatient prescriptions on file. Wt Readings from Last 1 Encounters: 04/30/18 138.8 kg (306 lb) Temp Readings from Last 1 Encounters: 05/07/18 (P) 36.2 ??C (97.1 ??F) ((P) Temporal) BP Readings from Last 6 Encounters: 05/07/18 (P) 122/68 04/30/18 124/76 01/23/18 122/76 01/16/18 126/68 12/29/16 104/66 05/15/16 144/82 Pulse Readings from Last 4 Encounters: 05/07/18 (P) 90 04/30/18 86 01/23/18 68 01/16/18 66 Resp Readings from Last 1 Encounters: 05/07/18 (P) 18 SpO2 Readings from Last 1 Encounters: 05/07/18 (P) 94% Recent Labs Lab Test 05/07/18 0858 05/03/18 0958 02/22/18 0911 NA -- 138 143 POTASSIUM 3.7 4.5 4.2 CHLORIDE -- 100 108 CO2 -- 31 30 ANIONGAP -- 7 5 GLC 162* 150* 151* BUN -- 34* 30 CR -- 1.25 1.17 [place] -- 9.2 9.1 Recent Labs Lab Test 05/03/18 0958 AST 25 ALT 31 ALKPHOS 29* BILITOTAL 1.0 Recent Labs Lab Test 05/02/18 1559 02/04/16 1203 02/02/16 2140 WBC -- 6.4 10.3 HGB 13.6 15.8 15.2 PLT -- 206 196 No results for input(s): ABO, RH in the last 99279 hours. Recent Labs Lab Test 02/04/16 1203 02/27/13 1145 INR 1.00 2.66* Recent Labs Lab Test 02/03/16 0450 02/03/16 0140 02/02/16 2140 TROPI 0.395* 0.441* 0.407* No results for input(s): PH, PCO2, PO2, HCO3 in the last 53873 hours. No results for input(s): HCG in the last 77327 hours. Recent Results (from the past 744 hour(s)) XR Chest 1 View Narrative CHEST ONE VIEW 05/02/2018 4:14 PM HISTORY: Persistent atrial fibrillation (H). COMPARISON: Chest x-ray 02/04/2016. Impression IMPRESSION: Portable chest. Pulmonary vascular congestion has worsened in the interval since the prior study. Prior median sternotomy for CABG. Implantable cardiac device and both leads appear unchanged in position. Heart is normal in size. No pneumothorax. LANI CHAO MD RECENT LABS: ECG: ECHO: Anesthesia Evaluation . Pt has had prior anesthetic. Type: General No history of anesthetic complications ROS/MED HX ENT/Pulmonary: (+)sleep apnea, , . . Neurologic: Cardiovascular: (+) hypertension--CAD, --. : . . . :. dysrhythmias a-fib, . METS/Exercise Tolerance: Hematologic: Musculoskeletal: GI/Hepatic: Renal/Genitourinary: Endo: (+) type II DM . (-) Type I DM Psychiatric: Infectious Disease: Malignancy: Other: Physical Exam Normal systems: pulmonary Airway Mallampati: III TM distance: >3 FB Neck ROM: limited Dental (+) caps Cardiovascular Rhythm and rate: irregular and normal Pulmonary (+) decreased breath sounds Other findings: Morbid obesity Anesthesia Plan History & Physical Review History and physical reviewed and following examination; no interval change. ASA Status: 3 . NPO Status: > 8 hours Plan for General and Other with Propofol induction. PONV prophylaxis: Ondansetron (or other 5HT-3) Postoperative Care Postoperative pain management: IV analgesics. Consents Anesthetic plan, risks, benefits and alternatives discussed with: Patient. Use of blood products discussed: No . . . documented in this encounter Plan of Treatment Upcoming Encounters Date Type Specialty Care Team Description 06/26/2022 Ancillary Procedure Cardiology Seng Canchola MD [address] [place] [address] (Wo rk) 08/16/2022 Ancillary Procedure Cardiology Timothy Smith MD [address] [place] [address] (Wo rk) 08/16/2022 Office Visit Cardiology Timothy Smith MD [address] [place] [address] (Wo rk) documented as of this encounter Visit Diagnoses Not on filedocumented in this encounter Administered Medications Inactive Administered Medications - up to 3 most recent administrations Medication Order MAR Action Action Date Dose Rate Site propofol (DIPRIVAN) injection 10 Given 05/07/2018 9:52 AM CDT 70 mg mg/mL vial PRN, Starting on Sun05/07/18 at 0952, Anesthesia Intra-op documented in this encounter Care Teams Nutrition Coordinator Relationship Specialty Start Date End Date [facility], [facility] PCP - General 01/16/18 07/01/18 [address] [place] [phone] documented as of this encounter
--- OUTSIDE RECORDS SUMMARY | 2022-06-22 08:56 | XMS_ITS | Encounter Summary ---
:1940 Author Organization [place] Address [address] [place] [address] Care Team Providers Name Role Phone Clinic, [facility] Primary Care Provider [phone] Reason for Visit Reason Onset Date Comments Refill Request 06/25/2018 eliquis Encounter Details Date Type Department Care Team Description 06/25/2018 Refill [facility] Heart Zarina Smith MD Refill Request (eliquis) [facility] [place] [address] [place] [id number] [address] [place] [address] [place] [phone] Social History Tobacco Use Types Packs/Day Years [...] [address] [place] [id number] (Wo rk) 08/16/2022 Ancillary Procedure Cardiology Timothy Smith MD [address] [place] [id number] (Wo rk) 08/16/2022 Office Visit Cardiology Timothy Smith MD [address] [place] [address] (Wo rk) documented as of this encounter Visit Diagnoses Diagnosis Paroxysmal atrial fibrillation (H) Atrial fibrillation documented in this encounter Care Teams Cafeteria Table Attendant Relationship Specialty Start Date End Date [facility], [facility] PCP - General 01/16/18 07/01/18 [address] [place] [address] documented as of this encounter
--- OUTSIDE RECORDS SUMMARY | 2022-06-22 08:56 | XMS_ITS | Encounter Summary ---
:1940 Author Organization [place] Address [address] [place] [address] Care Team Providers Name Role Phone [facility] Primary Care Provider [phone] Encounter Details Date Type Department Care Team Description 06/11/2018 Documentation Only [facility] [place], [facility] [address] [facility] [address] [place] [phone] Social History Tobacco Use Types Packs/Day Years Used Date Never Smoker Smokeless Tobacco: Never Used Alcohol Use Standard Drinks/Week Comments No 0 (1 standard drink = 0.6 oz pure alcoho l) Sex Assigned at Date Recorded Not on file documented as of this encounter Progress Notes Catherine Aranda LPN - 06/11/2018 2:49 PM CDT Pt of DR Smith and also has seen Elda Oliver RUBBER MOLDER---had resent decrease in his lasix dose-Elda wanted pt to get a BMP 1 week after the medication decrease- [place] [facility], and would like to have that done @ his PMD office- [facility]-I faxed the order to [phone], and have asked them to fax results to my attention-yvette cummins 07-01-2018--I called [facility] to see if pt went in for labs(BMP) await the fax result or call from clinic RN-yvette [place]mins documented in this encounter Plan of Treatment Upcoming Encounters Date Type Specialty Care Team Description 06/26/2022 Ancillary Procedure Cardiology Seng Canchola MD [address] [place] [address] (Wo rk) 08/16/2022 Ancillary Procedure Cardiology Timothy Smith MD [address] [place] [address] (Wo rk) 08/16/2022 Office Visit Cardiology Timothy Smith MD [address] [place] [phone] (Wo rk) documented as of this encounter Visit Diagnoses Not on filedocumented in this encounter Care Teams Printing Gray Cloth Tender Relationship Specialty Start Date End Date [facility], [facility] PCP - General 01/16/18 07/01/18 [address] [place] [address] documented as of this encounter
--- OUTSIDE RECORDS SUMMARY | 2022-06-22 08:56 | XMS_ITS | Encounter Summary ---
:1940 Author Organization [place] Address [address] [place] [address] Care Team Providers Name Role Phone [facility], [facility] Primary Care Provider [phone] Reason for Visit Reason Onset Date Comments Clinic Care Coordination - Follow-up 05/31/2018 [facility] low up appt Encounter Details Date Type Department Care Team Description 05/31/2018 [facility] Heart Temitope Tamayo, Clinic Care Coordination Clinic Shilpi RN - Follow-up (follow up [address] [facility] appt) [facility] [address] [place] [phone] Social History Tobacco Use Types Packs/Day Years Used Date Never Smoker Smokeless Tobacco: Never Used Alcohol Use Standard Drinks/Week Comments No 0 (1 standard drink = 0.6 oz pure alcoho l) Sex Assigned at Date Recorded Not on file documented as of this encounter Miscellaneous Notes Telephone Encounter - Temitope Tamayo RN - 05/31/2018 4:41 PM CDT Spoke to patient to discuss follow up appt with Dr. Smith in July. Patient was scheduled for aflutter ablation today and procedure was cancelled. Appointment scheduled with Dr Smith on 07/03/18 at 9:15am. Appointment reminder sent to patient. SIENNA Okeefe documented in this encounter Plan of Treatment Upcoming Encounters Date Type Specialty Care Team Description 06/26/2022 Ancillary Procedure Cardiology Seng Canchola MD [address] [facility] [address] [place] [address] (Wo rk) 08/16/2022 Ancillary Procedure Cardiology Timothy Smith MD [address] [place] [address] (Wo rk) 08/16/2022 Office Visit Cardiology Timothy Smith MD [address] [place] [phone] (Wo rk) documented as of this encounter Visit Diagnoses Not on filedocumented in this encounter Care Teams Staff Genetic Counselor Relationship Specialty Start Date End Date [facility], [facility] PCP - General 01/16/18 07/01/18 [address] [place] [phone] documented as of this encounter
--- OUTSIDE RECORDS SUMMARY | 2022-06-22 08:56 | XMS_ITS | Encounter Summary ---
:1940 Author Organization [place] Address [facility] [place] [address] Care Team Providers Name Role Phone [facility] Primary Care Provider [phone] Reason for Referral - Closed Specialty Diagnoses / Procedures Referred By Contact Refer red To Contact Diagnoses Paroxysmal atrial fibrillation (H) [facility] [address] [address] [place] [phone] Referral ID Status Reason Start Date Expiration Date Visits Requ ested Visits Authorized [id number] Closed 05/20/2018 05/20/2019 1 1 Reason for Visit Reason Comments Clinic Care Coordination - Follow-up Encounter Details Date Type Department Care Team Description 05/07/2018 Care Coordination [facility] Brisa Sunshine [facility] [place] V[place] RN Coordination - [address] [facility] Follow-up [address] [address] [place] [address] Social History Tobacco Use Types Packs/Day Years Used Date Never Smoker Smokeless Tobacco: Never Used Alcohol Use Standard Drinks/Week Comments No 0 (1 standard drink = 0.6 oz pure alcoho l) Sex Assigned at Date Recorded Not on file documented as of this encounter Progress Notes Aravind Sunshine RN - 05/07/2018 10:[address] Smith he wants patient to return in 1-2 weeks to see Elda with an EKG and pacer check. If patient is still in afib he wants amiodarone stopped. Leyda will call patient either later today or tomorrow morning to schedule. I will place the pacemaker check orders. Yogesh documented in this encounter Plan of Treatment Upcoming Encounters Date Type Specialty Care Team Description 06/26/2022 Ancillary Procedure Cardiology Seng Canchola MD [address] [place] [address] (Wo rk) 08/16/2022 Ancillary Procedure Cardiology Timothy Smith MD [address] [place] [address] (Wo rk) 08/16/2022 Office Visit Cardiology Timothy Smith MD [address] [place] [address] (Wo rk) Scheduled Referrals Name Type Priority Associated Diagnoses Order S chedule Follow-Up with Referral Routine Paroxysmal atrial Expected : 05/20/2018 Device Clinic fibrillation (H) (Approxima te), Expires: 2018 documented as of this encounter Visit Diagnoses Diagnosis Paroxysmal atrial fibrillation (H) - Ria jing Atrial fibrillation documented in this encounter Care Teams Denture Contour Wire Specialist Relationship Specialty Start Date End Date Kemar, Vinny Jaimes PCP - General 01/16/18 07/01/18 [address] [place] [phone] documented as of this encounter
--- OUTSIDE RECORDS SUMMARY | 2022-06-22 08:56 | XMS_ITS | Encounter Summary ---
:1940 Author Organization [place] Address [address] [place] [address] Care Team Providers Name Role Phone [facility], [facility] Primary Care Provider [phone] Reason for Visit Reason Onset Date Comments Clinic Care Coordination - Initial 05/30/2018 pre i nstructions for aflutter ablation scheduled for 05/31 Encounter Details Date Type Department Care Team Description 05/30/2018 Telephone [facility] Heart Temitope Tamayo, Clinic Care Coordination Clinic Shilpi RN - Initial (pre [address] [facility] [address] aflutter ablation [place] [phone] scheduled for 05/31 ) [phone] Social History Tobacco Use Types Packs/Day Years Used Date Never Smoker Smokeless Tobacco: Never Used Alcohol Use Standard Drinks/Week Comments No 0 (1 standard drink = 0.6 oz pure alcoho l) Sex Assigned at Date Recorded Not on file documented as of this encounter Miscellaneous Notes Telephone Encounter - Temitope Tamayo RN - 05/31/2018 8:15 AM CDT Spoke to patient to review instructions for afib ablation scheduled for today 05/31 . Patient aware that he is to be NPO after midnight and may take sips of water with am medications. Patient held oral diabetic medication and furosemide. Patient to arrive at 11am for 1pm procedure. Patient aware that he will NOT be staying overnight after procedure. Patient will have a cdl truck driver post procedure and someone to stay with him for the first 24 hours. SIENNA Okeefe Telephone Encounter - Temitope Tamayo RN - 05/30/2018 2:50 PM CDT Message left for patient to review instructions for aflutter ablation scheduled for 05/31. Awaiting return call. SIENNA Okeefe documented in this encounter Plan of Treatment Upcoming Encounters Date Type Specialty Care Team Description 06/26/2022 Ancillary Procedure Cardiology Seng Canchola MD [address] [place] [address] (Wo rk) 08/16/2022 Ancillary Procedure Cardiology Timothy Smith MD [address] [place] [address] (Wo rk) 08/16/2022 Office Visit Cardiology Timothy Smith MD [address] [place] [address] (Wo rk) documented as of this encounter Visit Diagnoses Not on filedocumented in this encounter Care Teams Turner In Relationship Specialty Start Date End Date [facility], [facility] PCP - General 01/16/18 07/01/18 [address] [place] [address] documented as of this encounter
--- OUTSIDE RECORDS SUMMARY | 2022-06-22 08:56 | XMS_ITS | Encounter Summary ---
:1940 Author Organization [place] Address [address] [place] [address] Care Team Providers Name Role Phone [facility], [facility] Primary Care Provider [phone] Encounter Details Date Type Department Care Team Description 05/07/2018 Hospital Encounter [facility] Timothy Smith MD [place] [facility] [address] [place] [address] [place] [address] [phone] (Wo rk) Social History Tobacco Use Types [...] MG tablet documented as of this encounter Plan of Treatment Upcoming Encounters Date Type Specialty Care Team Description 06/26/2022 Ancillary Procedure Cardiology Seng Canchola MD [address] [place] [phone] (Wo rk) 08/16/2022 Ancillary Procedure Cardiology Timothy Smith MD [address] [place] [phone] (Wo rk) 08/16/2022 Office Visit Cardiology Timothy Smith MD [address] [place] [phone] (Wo rk) documented as of this encounter Visit Diagnoses Not on filedocumented in this encounter Care Teams Bone Glue Maker Relationship Specialty Start Date End Date Clinic, Vinny Jaimes PCP - General 01/16/18 07/01/18 [address] [place] [address] documented as of this encounter
--- OUTSIDE RECORDS SUMMARY | 2022-06-22 08:56 | XMS_ITS | Encounter Summary ---
:1940 Author Organization [place] Address [address] [place] [address] Care Team Providers Name Role Phone Clinic, [facility] Primary Care Provider [phone] Reason for Visit Reason Onset Date Comments Results 05/08/2018 baseline Amio testin g/ BPM- order plaed for repeat BMP when in to see Elda due to r ising BUN Encounter Details Date Type Department Care Team Description 05/08/2018 [facility] Elda Johnson Results (baseline [facility] Sh[place]pi Montoya APRN PATIENT SERVICE REPRESENTATIVE testing/ BPM- order [address] for repeat BMP [facility] [address] when in to see Elda [place] [address] [place] [address] due to rising BUN) [phone] (Wo rk) Social History Tobacco Use Types Packs/Day Years Used Date Never Smoker Smokeless Tobacco: Never Used Alcohol Use Standard Drinks/Week Comments No 0 (1 standard drink = 0.6 oz pure alcoho l) Sex Assigned at Date Recorded Not on file documented as of this encounter Miscellaneous Notes Telephone Encounter - Fabiola Hurtado, RN, RN - 05/08/2018 1:14 PM CDT Called patient and notified him that his TSH, hemoglobin, PFT, Chest X ray Hepatic panel were all WNL. The BMP did show some abnormalities and Mago Walters recommended repeating BPM when he is in to see Elda. He was agreeable to this and will be here at 2:10 PM. Cardioversion failed to return to sinus, pt is instructed to stay on the Amiodarone until he sees Elda. She will stop it if he remains in AF but explained that we can sometime see a spontaneous return to sinus just on Amiodarone. Order for BMP placed. SIENNA Cowart documented in this encounter Plan of Treatment Upcoming Encounters Date Type Specialty Care Team Description 06/26/2022 Ancillary Procedure Cardiology Seng Canchola MD [address] [place] [address] (Wo rk) 08/16/2022 Ancillary Procedure Cardiology Timothy Smith MD [address] [place] [address] (Wo rk) 08/16/2022 Office Visit Cardiology Timothy Smith MD [address] [place] [address] (Wo rk) documented as of this encounter Results (ABNORMAL) Basic metabolic panel (05/21/2018 2:05 PM CDT) Analysis Performed At Patho logist Time Signature Sodium 141 136 - 145 05/21/2018 [facility] mmol/L 3:31 PM CDT FATEM[place] A Potassium 4.7 3.5 - 5.1 05/21/2018 [facility] mmol/L 3:31 PM CDT ANIYAH-PILI A Chloride 101 98 - 107 05/21/2018 [facility] mmol/L 3:31 PM CDT [facility] A Carbon Dioxide 31 (H) 23 - 29 05/21/2018 [facility] mmol/L 3:31 PM CDT [facility] A Anion Gap 13.7 6 - 17 05/21/2018 [facility] mmol/L 3:31 PM CDT [facility] A Glucose 154 (H) 70 - 105 05/21/2018 [facility] mg/dL 3:31 PM CDT [facility] A Urea Nitrogen 44 (H) 7 - 30 05/21/2018 [facility] mg/dL 3:31 PM CDT [facility] A Creatinine 2.03 (H) 0.70 - 05/21/2018 [facility] 1.30 mg/dL 3:31 PM CDT [facility] A GFR Estimate 32 (L) >60 05/21/2018 [facility] mL/min/1.7 3:31 PM CDT [facility] m2 A GFR Estimate If 39 (L) >60 05/21/2018 [facility] Black mL/min/1.7 3:31 PM CDT [facility] m2 A Calcium 10.3 8.5 - 10.5 05/21/2018 [facility] mg/dL 3:31 PM CDT [facility] A Specimen Anatomical Collection Method Collection Time Receive d Time (Source) Location / / Volume Laterality Blood specimen 05/21/2018 2:05 PM 018 2:07 (specimen) CDT PM CDT Elda Johnson APRN PATIENT SERVICE REPRESENTATIVE LAB - BLOOD ORDERABL ES Performing Organization Address City/State/ZIP Code Phon e Number [facility] [address] [place] [place] [address] [address] documented in this encounter Visit Diagnoses Diagnosis CAD (coronary artery disease) - Primary Coronary atherosclerosis of unspecified type of vessel, chilkoot or graft documented in this encounter Care Teams Paper Tube Grader Relationship Specialty Start Date End Date [facility], [place] PCP - General 01/16/18 07/01/18 [address] [place] [address] documented as of this encounter
--- OUTSIDE RECORDS SUMMARY | 2022-06-22 08:57 | XMS_ITS | Encounter Summary ---
:1940 Author Organization [place] Address [address] [place] [address] Care Team Providers Name Role Phone Graham Licona MD Primary Care Provider Reason for Visit Reason Onset Date Comments Medication Question 01/04/2018 Eliquis Encounter Details Date Type Department Care Team Description 01/04/2018 Telephone [facility] Heart Lacy [place] M edication Question Clinic Sihlpi RN (Eliquis) [address] [facility] [address] [place] [phone] Social History Tobacco Use Types Packs/Day Years Used Date Never Smoker Alcohol Use Standard Drinks/Week Comments No 0 (1 standard drink = 0.6 oz pure alcoho l) Sex Assigned at Date Recorded Not on file documented as of this encounter Miscellaneous Notes Telephone Encounter - Kimmy Alberto RN - 01/04/2018 2:14 PM CDT Two week supply of Eliquis 5mg placed at medical front desk specialist of [facility] for pt knot picker cloth. Chu EL Telephone Encounter - Lacy [place] RN - 01/04/2018 1:58 PM CDT Pt LM requesting samples of Eliquis, as he will run out before his medications come in the mail. Will message nurse in [facility] to set out a couple of boxes for pt to knot picker cloth today if possible. JNelsonRN documented in this encounter Plan of Treatment Upcoming Encounters Date Type Specialty Care Team Description 06/26/2022 Ancillary Procedure Cardiology Seng Canchola MD [address] [place] [phone] (Wo rk) 08/16/2022 Ancillary Procedure Cardiology Timothy Smith MD [address] [place] [address] (Wo rk) 08/16/2022 Office Visit Cardiology Timothy Smith MD [address] [place], [place] [address] (Wo rk) documented as of this encounter Visit Diagnoses Not on filedocumented in this encounter Care Teams Fondant Puff Maker Relationship Specialty Start Date End Date Graham Licona MD PCP - General Family Practice 04/13/17 01/15/18 [facility] [address] [place] [address] documented as of this encounter
--- OUTSIDE RECORDS SUMMARY | 2022-06-22 08:57 | XMS_ITS | Encounter Summary ---
:1940 Author Organization [place] Address [address] [place] [address] Care Team Providers Name Role Phone Graham Licona MD Primary Care Provider Reason for Visit Reason Comments Pacemaker Check PPM Latitude NXT Encounter Details Date Type Department Care Team Description 07/16/2017 Allied Health/Nurse [facility] Pac emaker Check (PPM Visit Heart Clinic Shilpi Latitude NXT) [address] [place] [address] [address] [place] [address] Social History Tobacco Use Types Packs/Day Years Used Date Never Smoker Alcohol Use Standard Drinks/Week Comments No 0 (1 standard drink = 0.6 oz pure alcoho l) Sex Assigned at Date Recorded Not on file documented as of this encounter Progress Notes Sary Riojas - 07/16/2017 9:00 AM CDT Dino Adan VALLES L121 (S) Remote PPM Device Check GAS PIPE LAYER: 8% Mode: VVIR Presenting Rhythm: Afib with varying vent response Heart Rate: adequate heart rates per histogram Sensing: stable Pacing Threshold: stable Impedance: stable Battery Status: 13 years remaining Atrial Arrhythmia: chronic Afib, taking Eliquis Ventricular Arrhythmia: 285 vent high rates. EGMs available continue to show Afib with RVR lasting 10 seconds - 2 min, average rates 160 - 165bpm. Reviewed findings with Festus EL. He wore holter in the past and heart rate was controlled. Will cont to monitor. Care Plan: F/U Latitude NXT q 3 months. Per 's request, I will call pt tomorrow afternoon with results. Darius CVT documented in this encounter Plan of Treatment Upcoming Encounters Date Type Specialty Care Team Description 06/26/2022 Ancillary Procedure Cardiology Seng Canchola MD [address] [place], [place] [address] (Wo rk) 08/16/2022 Ancillary Procedure Cardiology Timothy Smith MD [address] [place] [address] (Wo rk) 08/16/2022 Office Visit Cardiology Timothy Smith MD [address] [place] [address] (Wo rk) documented as of this encounter Procedures Procedure Name Priority Date/Time Associated Diagnosis Comme [facility] Z PM DEVICE Routine 07/16/2017 1:42 PM Cardiac pacemaker in INTERROGATE REMOTE, UP CDT situ TO 90 DAYS, LEAD/LEADLESS HC INTERR DEVICE EVAL Routine 07/16/2017 Cardiac pacemaker i n REMOTE, PM/LDLS PM/ICD, situ UP TO 90 DAYS documented in this encounter Results INTERROGATION DEVICE EVAL REMOTE, PACER/ICD (29349) (07/16/2017) Narrative This result has an attachment that is no t available. Basil Guadalupe MD PROCEDURES documented in this encounter Visit Diagnoses Diagnosis Cardiac pacemaker in situ - Primary documented in this encounter Care Teams Flag Car Driver Relationship Specialty Start Date End Date Graham Licona MD PCP - General Family Practice 04/13/17 01/15/18 [facility] [address] [place] [address] documented as of this encounter
--- OUTSIDE RECORDS SUMMARY | 2022-06-22 08:57 | XMS_ITS | Encounter Summary ---
:1940 Author Organization [place] Address [address] [place] [address] Care Team Providers Name Role Phone Graham Licona MD Primary Care Provider Reason for Visit Reason Onset Date Comments Refill Request 10/08/2017 dose of metoprolol i ncreased to 100mg daily, succinate Encounter Details Date Type Department Care Team Description 10/08/2017 Refill [facility] Heart Zarina Smith MD Refill Request (dose of Clinic [place] [address] metoprolol increased to [address] 100mg daily, succinate) [address] [place] [address] [place] [phone] [phone] Social History Tobacco Use Types Packs/Day Years Used Date Never Smoker Alcohol Use Standard Drinks/Week Comments No 0 (1 standard drink = 0.6 oz pure alcoho l) Sex Assigned at Date Recorded Not on file documented as of this encounter Plan of Treatment Upcoming Encounters Date Type Specialty Care Team Description 06/26/2022 Ancillary Procedure Cardiology Seng Canchola MD [address] [place] [id number] (Wo rk) 08/16/2022 Ancillary Procedure Cardiology Timothy Smith MD [address] [place] [phone] (Wo rk) 08/16/2022 Office Visit Cardiology Timothy Smith MD [address] [facility] [place] [address] (Wo rk) documented as of this encounter Visit Diagnoses Diagnosis Palpitations - Primary documented in this encounter Care Teams Cake Cutter Machine Relationship Specialty Start Date End Date Graham Licona MD PCP - General Family Practice 04/13/17 01/15/18 [facility] [address] [place] [address] documented as of this encounter
--- OUTSIDE RECORDS SUMMARY | 2022-06-22 08:57 | XMS_ITS | Encounter Summary ---
:1940 Author Organization [place] Address [address] [place] [address] Care Team Providers Name Role Phone Graham Licona MD Primary Care Provider Reason for Visit Reason Comments Pacemaker Check PPM Latitude NXT Encounter Details Date Type Department Care Team Description 10/22/2017 Allied Health/Nurse [facility] Pac emaker Check (PPM Visit Heart Clinic Shilpi Latitude NXT) [address] [place] [address] [address] [place] [address] Social History Tobacco Use Types Packs/Day Years Used Date Never Smoker Alcohol Use Standard Drinks/Week Comments No 0 (1 standard drink = 0.6 oz pure alcoho l) Sex Assigned at Date Recorded Not on file documented as of this encounter Progress Notes Sary Riojas - 10/22/2017 3:30 PM CST [employer] Jaret VALLES L121 (S) Remote PPM Device Check LEAD ACCOUNTANT: 11% Mode: VVIR Presenting Rhythm: LEAD ACCOUNTANT Heart Rate: historgram shows heart rates 60 - 160bpm with 15% > 100bpm Sensing: stable Pacing Threshold: stable Impedance: stable Battery Status: 14 years remaining Atrial Arrhythmia: chronic Afib, taking Eliquis and Metoprolol Ventricular Arrhythmia: 15 vent high rates ( all occurring on 10/20/17) since last alert. EGMs continue to show RVR lasting 12 sec - 1 min, rates 150 - 180bpm. Reviewed findings with Santino EL Care Plan: Annual threshold and OV scheduled in December. No answer, left message with results. Darius CVT ERY/ORDNANCE OFFICER documented in this encounter Plan of Treatment Upcoming Encounters Date Type Specialty Care Team Description 06/26/2022 Ancillary Procedure Cardiology Seng Canchola MD [address] [place] [address] (Wo rk) 08/16/2022 Ancillary Procedure Cardiology Timothy Smith MD [address] [place] [address] (Wo rk) 08/16/2022 Office Visit Cardiology Timothy Smith MD [address] [place] [id number] (Wo rk) documented as of this encounter Procedures Procedure Name Priority Date/Time Associated Diagnosis Comme [facility] PM DEVICE Routine 10/22/2017 8:41 AM Cardiac pacemaker in INTERROGATE REMOTE, UP GUNNERY/ORDNANCE OFFICER situ TO 90 DAYS, LEAD/LEADLESS HC INTERR DEVICE EVAL Routine 10/22/2017 Cardiac pacemaker i n REMOTE, PM/LDLS PM/ICD, situ UP TO 90 DAYS documented in this encounter Results INTERROGATION DEVICE EVAL REMOTE, PACER/ICD (09422) (10/22/2017) Narrative This result has an attachment that is no t available. Basil Guadalupe MD PROCEDURES documented in this encounter Visit Diagnoses Diagnosis Cardiac pacemaker in situ - Primary documented in this encounter Care Teams Shopper Insights Manager Relationship Specialty Start Date End Date Graham Licona MD PCP - General Family Practice 04/13/17 01/15/18 [facility] [address] [place] [address] documented as of this encounter
--- OUTSIDE RECORDS SUMMARY | 2022-06-22 08:57 | XMS_ITS | Encounter Summary ---
:1940 Author Organization [place] Address [address] [place] [address] Care Team Providers Name Role Phone [facility], [facility] Primary Care Provider [phone] Reason for Visit (Routine) - Closed Specialty Diagnoses / Procedures Referred By Contact Refer red To Contact Cardiology Diagnoses Per Sarah SOB (shortness of breath) Katelynn Byrd Cv Echocard Procedures ECH COMPLETE [address] [facility] [address] Phone: Referral ID Status Reason Start Date Expiration Date Visits Requ ested Visits Authorized [id number] Closed 01/17/2018 01/17/2019 1 1 Encounter Details Date Type Department Care Team Description 01/17/2018 Hospital Encounter [place] Ankur Medeiros MD SOB (shortness of CV Echocardiography [address] breath) [id number] [place] [address] [facility] [phone] [place] [address] (Work) [phone] Social History Tobacco Use Types Packs/Day Years [...] capsule mouth 2 times daily furosemide (LASIX) 20 MG Take 20 mg by mouth 0 04/30/2018 tablet daily GLIPIZIDE PO Take 5 mg by [...] 06/26/2022 Ancillary Procedure Cardiology Seng Canchola MD [address] [place] [id number] (Wo rk) 08/16/2022 Ancillary Procedure Cardiology Ankur Smith MD [address] [place] [id number] (Wo rk) 08/16/2022 Office Visit Cardiology Ankur Smith MD [address] [facility] [address] [place] [id number] (Wo rk) documented as of this encounter Procedures Procedure Name Priority Date/Time Associated Diagnosis Comme nts ECHO COMPLETE WITH Routine 01/17/2018 10:38 AM SOB (shortness of Results for this OPTISON CDT breath) procedure are i n the results section. documented in this encounter Results ECHO COMPLETE WITH OPTISON (01/17/2018 10:38 AM CDT) Anatomical Region Laterality Modality Echocardiography Specimen (Source) Anatomical Collection Method Collection Time Re ceived Time Location / / Volume Laterality 01/17/2018 9:58 AM CDT Narrative 01/17/2018 2:54 PM CDT [id number]^SARAH^ANKUR^ [facility] Heart Echocardiography Laboratory [address] [facility] [address] [place] [id number] Name: RADHA VILLA : 1940 Study Date: 01/17/2018 09:58 AM Age: 77 yrs Gender: Male Patient Location: [facility] Reason For Study: , SOB (shortness of br eath) History: A-FIB, CABG, PACEMAKER Ordering Physician: ANKUR SMITH Referring Physician: [facility] Performed By: Nabeel Fxo RDCS BSA: 2.5 m2 Height: 71 in Weight: 311 lb HR: 68 BP: 124/76 mmHg __ Procedure Complete Echo Adult. Contrast Optison. __ Interpretation Summary The patient exhibited frequent PVCs. The rhythm was atrial fibrillation with wide QRS rhythm, likely RV paced There i s a catheter/pacemaker lead seen in the right ventricle. The frequent PVCs and atrial fibrillatio n made an ejection fraction approximation difficult. The left ventricle is normal in size. Th ere is moderate global hypokinesia of the left ventricle as the visual ejectio n fraction is estimated at 35-45%. Diastolic Doppler findings (E/E' ratio = 24 and/or other parameters) suggest left ventricular filling pressures are i ncreased. Also, the right ventricle is mild to mod erately dilated and the right ventricular systolic function is mild to moderately reduced. There is only mild (1+) mitral regurgita tion. There is mild (1+) tricuspid regurgitati on. The right ventricular systolic pressure is approximated at 39.7mmHg plu s the right atrial pressure is elevated, consistent with moderate pulmo nary hypertension. The inferior vena cava was severely dila star at 3.5 cm without respiratory variability, consistent with increased r ight atrial pressure. The study was technically difficult. The study was technically limited. __ Left Ventricle The left ventricle is normal in size. Th ere is normal left ventricular wall thickness. Diastolic function not assess ed due to atrial fibrillation. Diastolic Doppler findings (E/E' ratio a nd/or other parameters) suggest left ventricular filling pressures are increa sed. The visual ejection fraction is estimated at 35-45%. There is moderate g lobal hypokinesia of the left ventricle. Septal wall motion abnormalit y may reflect pacemaker activation. There is no thrombus seen in the left ve ntricle. Right Ventricle The right ventricle is mild to moderatel y dilated. There is a catheter/pacemaker lead seen in the righ t ventricle. The right ventricular systolic function is mild to moderately reduced. Atria The left atrium is severely dilated. Lef t atrial enlargement is noted by volume criteria. There is severe biatria l enlargement. The right atrium is severely dilated. There is no atrial jose nt seen. Mitral Valve There is no evidence of mitral valve pro lapse. There is mild (1+) mitral regurgitation. There is no mitral valve stenosis. Tricuspid Valve The tricuspid valve is normal in structu re and function. There is mild (1+) tricuspid regurgitation. The right ventr icular systolic pressure is approximated at 39.7 mmHg plus the right atrial pressure. The right ventricular systolic pressure is approxi mated at 39.7mmHg plus the right atrial pressure. Right ventricular systo lic pressure is elevated, consistent with mild to moderate pulmonary hyperten debra. Aortic Valve The aortic valve is normal in structure and function. The aortic valve is trileaflet. No aortic regurgitation is p resent. No aortic stenosis is present. Pulmonic Valve The pulmonic valve is not well seen, but is grossly normal. There is trace pulmonic valvular regurgitation. Vessels Normal size aorta. The inferior vena cav a was dilated at 3.5 cm without respiratory variability, consistent with increased right atrial pressure. Pericardium There is no pericardial effusion. There is no pleural effusion. Rhythm The patient exhibited frequent PVCs. The rhythm was atrial fibrillation with wide QRS rhythm. __ MMode/2D Measurements & Calculations IVSd: 1.1 cm LVIDd: 5.6 cm LVIDs: 4.8 cm LVPWd: 1.3 cm FS: 13.5 % LV mass(C)d: 267.8 grams LV mass(C)dI: 105.3 grams/m2 Ao root diam: 3.5 cm LA dimension: 6.6 cm asc Aorta Diam: 3.3 cm LA/Ao: 1.9 LA Volume (BP): 217.0 ml LA Volume Index (BP): 85.4 ml/m2 RWT: 0.45 Doppler Measurements & Calculations MV E max pascual: 128.0 cm/sec MV dec time: 0.17 sec PA acc time: 0.07 sec TR max pascual: 315.1 cm/sec TR max P.7 mmHg E/E' av.3 Lateral E/e': 18.1 Medial E/e': 24.5 __ Report approved by: Tip Parikh MDon 0 01/17/2018 02:54 PM Procedure Note Tip Parikh MD - 01/17/2018Formatti ng of this note might be different from the original. [id number]^SARAH^ANKUR^ [facility]ch[facility] Laboratory [address] [facility] [address] [place] [address] Name: RADHA VILLA : 1940 Study Date: 01/17/2018 09:58 AM Age: 77 yrs Gender: Male Patient Location: [facility] Reason For Study: , SOB (shortness of br eath) History: A-FIB, CABG, PACEMAKER Ordering Physician: ANKUR SMIHT Referring Physician: [facility] Performed By: Nabeel Fox RDCS BSA: 2.5 m2 Height: 71 in Weight: 311 lb HR: 68 BP: 124/76 mmHg __ Procedure Complete Echo Adult. Contrast Optison. __ Interpretation Summary The patient exhibited frequent PVCs. The rhythm was atrial fibrillation with wide QRS rhythm, likely RV paced There i s a catheter/pacemaker lead seen in the right ventricle. The frequent PVCs and atrial fibrillatio n made an ejection fraction approximation difficult. The left ventricle is normal in size. Th ere is moderate global hypokinesia of the left ventricle as the visual ejectio n fraction is estimated at 35-45%. Diastolic Doppler findings (E/E' ratio = 24 and/or other parameters) suggest left ventricular filling pressures are i ncreased. Also, the right ventricle is mild to mod erately dilated and the right ventricular systolic function is mild to moderately reduced. There is only mild (1+) mitral regurgita tion. There is mild (1+) tricuspid regurgitati on. The right ventricular systolic pressure is approximated at 39.7mmHg plu s the right atrial pressure is elevated, consistent with moderate pulmo nary hypertension. The inferior vena cava was severely dila star at 3.5 cm without respiratory variability, consistent with increased r ight atrial pressure. The study was technically difficult. The study was technically limited. __ Left Ventricle The left ventricle is normal in size. Th ere is normal left ventricular wall thickness. Diastolic function not assess ed due to atrial fibrillation. Diastolic Doppler findings (E/E' ratio a nd/or other parameters) suggest left ventricular filling pressures are increa sed. The visual ejection fraction is estimated at 35-45%. There is moderate g lobal hypokinesia of the left ventricle. Septal wall motion abnormalit y may reflect pacemaker activation. There is no thrombus seen in the left ve ntricle. Right Ventricle The right ventricle is mild to moderatel y dilated. There is a catheter/pacemaker lead seen in the righ t ventricle. The right ventricular systolic function is mild to moderately reduced. Atria The left atrium is severely dilated. Lef t atrial enlargement is noted by volume criteria. There is severe biatria l enlargement. The right atrium is severely dilated. There is no atrial jose nt seen. Mitral Valve There is no evidence of mitral valve pro lapse. There is mild (1+) mitral regurgitation. There is no mitral valve stenosis. Tricuspid Valve The tricuspid valve is normal in structu re and function. There is mild (1+) tricuspid regurgitation. The right ventr icular systolic pressure is approximated at 39.7 mmHg plus the right atrial pressure. The right ventricular systolic pressure is approxi mated at 39.7mmHg plus the right atrial pressure. Right ventricular systo lic pressure is elevated, consistent with mild to moderate pulmonary hyperten debra. Aortic Valve The aortic valve is normal in structure and function. The aortic valve is trileaflet. No aortic regurgitation is p resent. No aortic stenosis is present. Pulmonic Valve The pulmonic valve is not well seen, but is grossly normal. There is trace pulmonic valvular regurgitation. Vessels Normal size aorta. The inferior vena cav a was dilated at 3.5 cm without respiratory variability, consistent with increased right atrial pressure. Pericardium There is no pericardial effusion. There is no pleural effusion. Rhythm The patient exhibited frequent PVCs. The rhythm was atrial fibrillation with wide QRS rhythm. __ MMode/2D Measurements & Calculations IVSd: 1.1 cm LVIDd: 5.6 cm LVIDs: 4.8 cm LVPWd: 1.3 cm FS: 13.5 % LV mass(C)d: 267.8 grams LV mass(C)dI: 105.3 grams/m2 Ao root diam: 3.5 cm LA dimension: 6.6 cm asc Aorta Diam: 3.3 cm LA/Ao: 1.9 LA Volume (BP): 217.0 ml LA Volume Index (BP): 85.4 ml/m2 RWT: 0.45 Doppler Measurements & Calculations MV E max pascual: 128.0 cm/sec MV dec time: 0.17 sec PA acc time: 0.07 sec TR max pascual: 315.1 cm/sec TR max P.7 mmHg E/E' av.3 Lateral E/e': 18.1 Medial E/e': 24.5 __ Report approved by: Tip Parikh MDon 0 01/17/2018 02:54 PM Ankur Smith MD CV ECHO ORDERABLES documented in this encounter Visit Diagnoses Diagnosis SOB (shortness of breath) Shortness of breath documented in this encounter Administered Medications Inactive Administered Medications - up to 3 most recent administrations Medication Order MAR Action Action Date Dose Rate Site perflutren diluted 1mL to 2mL with Given 01/17/2018 10:39 AM CDT 9 mLs saline (OPTISON) diluted injection 9 mL 9 mL, Intravenous, ONCE, On Ana 01/17/18 at 1045, For 1 dose sodium chloride (PF) 0.9% PF flush 10 mL Given 01/17/2018 10:40 AM CDT 10 mLs 10 mL, Intravenous, ONCE, On Ana 01/17/18 at 1045, For 1 dose documented in this encounter Care Teams Photolithographic Stripper Relationship Specialty Start Date End Date [facility], Vinny Arrieta PCP - General 01/16/18 07/01/18 [address] [place] [address] documented as of this encounter
--- OUTSIDE RECORDS SUMMARY | 2022-06-22 08:57 | XMS_ITS | Encounter Summary ---
:1940 Author Organization [place] Address [address] [place] [address] Care Team Providers Name Role Phone Clinic, [facility] Primary Care Provider [phone] Reason for Visit (Routine) - Closed Specialty Diagnoses / Procedures Referred By Contact Refer red To Contact Respiratory Therapy Diagnoses 05/01 Dr. Smith wanted patient to get in before the end of the week. Persistent Atrial Fibrillation. Rh Respiratory Ther Procedures PULMONARY FUNCTION TEST [address] [place] [address] Phone: Referral ID Status Reason Start Date Expiration Date Visits Requ ested Visits Authorized [id number] Closed 05/02/2018 05/02/2019 1 1 Encounter Details Date Type Department Care Team Description 05/02/2018 Hospital Encounter [facility] Timothy Smith MD On amiodarone therapy (Primary Dx); [place] [facility] [address] Persis tent atrial fibrillation (H) Therapy [address] [place] [address] [place], [place] [phone] [address] (Work) [phone] Social History Tobacco Use Types Packs/Day Years [...] dysfunction (H) amiodarone Take 2 tablets (200 60 tablet 3 04/30/201805/07 (PACERONE/CODARONE) 100 mg) by mouth daily MG [...] documented as of this encounter Progress Notes Guera Hinojosa RT - 05/02/2018 3:55 PM CDT PFT Note: Patient completed pulmonary function testing with spirometry, lung volumes and diffusion. Good patient effort and cooperation. The results of this test met the ATS standards for acceptabilityand repeatability. Albuterol neb not given, patient is currently in a-fib and is scheduled on Sunday for cardioversion. documented in this encounter Procedure Notes Julianna Vazquez MD - 05/02/2018 3:51 PM CDTAssociated Order(s): PFT GENERAL LAB TESTING Procedure Date: 05/02/2018 Please see medical chart for graphs and statistics related to this report. REFERRING PHYSICIAN: Timothy Smith WREATH MACHINE TENDER: Guera Hinojosa DIAGNOSIS: Amiodarone Therapy, Atrial Fibrillation, CAD, HTN HEIGHT: 68.25 inches WEIGHT: 295.00 Lbs. DYSPNEA: No dyspnea COUGH: No cough WHEEZE: Rare TOBACCO PROD: Cigarette YEARS SMOKED: PKS/DAY: YEARS QUIT: MEDICATIONS: POST-TEST COMMENTS: Good patient effort and cooperation. The results of these tests meet ATS criteria for acceptability and repeatability. Albuterol neb not given, patient is currently in A-Fib, Cardioversion set for Sunday. INTERPRETATION: 1. Mild ventilatory defect, restrictive 2. No obstruction 3. Mildly restricted lung volumes 4. Gas transfer is normal for volumes 5. No previous study for comparison 6. Correlate clinically JULIANNA VAZQUEZ MD MT: [place] Name: RADHA VILLA MRN: [id number] Account: [id number] : 1940 Procedure Date: 05/02/2018 Document: [id number] cc: [facility] Timothy Smith MD documented in this encounter Plan of Treatment Upcoming Encounters Date Type Specialty Care Team Description 06/26/2022 Ancillary Procedure Cardiology Seng Canchola MD [address] [place] [id number] (Wo rk) 08/16/2022 Ancillary Procedure Cardiology Timothy Smith MD [address] [place] [id number] (Wo rk) 08/16/2022 Office Visit Cardiology Timothy Smith MD [address] [place] [id number] (Wo rk) Scheduled Orders Name Type Priority Associated Diagnoses Order S chedule Pulmonary Function PFT Routine Persistent atrial 1 Oc currences starting Test fibrillation (H) 05/02/2018 until 05/02/2018 documented as of this encounter Procedures Procedure Name Priority Date/Time Associated Diagnosis Comme nts PFT GENERAL LAB 06/06/2018 12:08 Results for this TESTING PM CDT procedure are i n the results section. PFT GENERAL LAB Routine 05/02/2018 3:23 PM Persistent atrial R esults for this TESTING CDT fibrillation (H) procedure a re in the results section. documented in this encounter Results PFT GENERAL LAB TESTING (06/06/2018 12:08 PM CDT) Procedure Note Julianna Vazquez MD - 05/02/2018 3:51 PM CDT Procedure Date: 05/02/2018 Please see medical chart for graphs and statistics related to this report. REFERRING PHYSICIAN: Timothy Smith TECHNICI AN: Guera Hinojosa DIAGNOSIS: Amiodarone Therapy, Atrial Fi brillation, CAD, HTN HEIGHT: 68.25 inches WEIGHT: 295.00 Lbs. DYSPNEA: No dyspnea COUGH: No cough WHEE ZE: Rare TOBACCO PROD: Cigarette YEARS SMOKED: PKS/DAY: YEARS QUIT: MEDICATIONS: POST-TEST COMMENTS: Good patient effort and cooperation. The results of these tests meet ATS criteria for acceptability and repeatability. Albuterol neb not given, patient is currently in A-Fib, Cardioversion set for Sunday. INTERPRETATION: 1. Mild ventilatory defect, restrictive 2. No obstruction 3. Mildly restricted lung volumes 4. Gas transfer is normal for volumes 5. No previous study for comparison 6. Correlate clinically JLUIANNA VAZQUEZ MD MT: [place] Name: RADHA VILLA MRN: [id number] Account: [id number] : 1940 Procedure Date: 05/02/20 Document: [id number] cc: [facility] Timothy Smith MD Julianna Vazquez MD PFT ORDERABLES Hemoglobin FUTURE anytime (05/02/2018 3:59 PM CDT) athologist Signature Hemoglobin 13.6 13.3 - 17.7 05/02/2018 [facility] g/dL 4:02 PM CDT HOSPITAL Specimen Anatomical Collection Method Collection Time Receive d Time (Source) Location / / Volume Laterality Blood specimen 05/02/2018 3:59 PM 018 4:00 (specimen) CDT PM CDT Timothy Smith MD LAB - BLOOD ORDERABLES Performing Organization Address City/State/ZIP Code Phon e Number M [facility] [address] [address] [place] [address] [phone] General PFT Lab (Please always keep checked) (05/02/2018 3:23 PM CDT) athologist Signature FVC-Pred 3.67 L [place] PFT FVC-Pre 2.49 L [place] PFT FVC-%Pred-Pre 67 % [place] PFT FEV1-Pre 2.03 L [place] PFT FEV1-%Pred-Pre 74 % [place] PFT [id number] 72 % [place] PFT [id number] 81 % [place] PFT FEFMax-Pred 6.90 L/sec [place] PFT FEFMax-Pre 6.78 L/sec [place] PFT FEFMax-%Pred-Pr 98 % [place] PFT e [id number] 1.96 L/sec [place] PFT [id number] 2.06 L/sec [place] PFT [id number]-P 105 % [place] PFT re ExpTime-Pre 6.47 sec [place] PFT FIFMax-Pre 5.17 L/sec [place] PFT VC-Pred 4.23 L [place] PFT VC-Pre 2.56 L [place] PFT VC-%Pred-Pre 60 % [place] PFT IC-Pred 4.20 L [place] PFT IC-Pre 2.31 L [place] PFT IC-%Pred-Pre 55 % [place] PFT ERV-Pred 0.03 L [place] PFT ERV-Pre 0.25 L [place] PFT ERV-%Pred-Pre 830 % [place] PFT [id number] 76 % [place] PFT [id number] 81 % [place] PFT FRCPleth-Pred 3.68 L [place] PFT FRCPleth-Pre 2.56 L [place] PFT FRCPleth-%Pred- 69 % [place] PFT Pre RVPleth-Pred 2.79 L [place] PFT RVPleth-Pre 2.31 L [place] PFT RVPleth-%Pred-P 82 % [place] PFT re TLCPleth-Pred 6.77 L [place] PFT TLCPleth-Pre 4.88 L [place] PFT TLCPleth-%Pred- 72 % [place] PFT Pre Gaw-Pred 1.03 L/s/cmH2O [place] PFT Gaw-Pre 0.70 L/s/cmH2O [place] PFT Gaw-%Pred-Pre 67 % [place] PFT sGaw-Pred 0.08 1/cmH2O*s [place] PFT sGaw-Pre 0.24 1/cmH2O*s [place] PFT sGaw-%Pred-Pre 296 % [place] PFT sRaw-Pred 4.76 cmH2O*s [place] PFT sRaw-Pre 4.22 cmH2O*s [place] PFT sRaw-%Pred-Pre 88 % [place] PFT DLCOunc-Pred 23.21 ml/min/mmHg [place] PFT DLCOunc-Pre 18.89 ml/min/mmHg [place] PFT DLCOunc-%Pred-P 81 % [place] PFT re DLCOcor-Pre 19.71 ml/min/mmHg [place] PFT DLCOcor-%Pred-P 84 % [place] PFT re VA-Pre 4.50 L [place] PFT VA-%Pred-Pre 69 % [place] PFT [id number] 65 % [place] PFT [id number] 79 % [place] PFT Specimen (Source) Anatomical Collection Method Collection Time Re ceived Time Location / / Volume Laterality 05/02/2018 3:23 PM CDT Timothy Smith MD PFT ORDERABLES Performing Organization Address City/State/ZIP Code Phon e Number [place] PFT documented in this encounter Visit Diagnoses Diagnosis On amiodarone therapy - Primary Persistent atrial fibrillation (H) Atrial fibrillation documented in this encounter Care Teams Sulfide Head Operator Relationship Specialty Start Date End Date [facility], [facility] PCP - General 01/16/18 07/01/18 [address] [place] [address] documented as of this encounter
--- OUTSIDE RECORDS SUMMARY | 2022-06-22 08:57 | XMS_ITS | Encounter Summary ---
:1940 Author Organization [place] Address [address] [place] [address] Care Team Providers Name Role Phone Clinic, [facility] Primary Care Provider [phone] Reason for Visit CV Testing - Closed Specialty Diagnoses / Procedures Referred By Contact Refer red To Contact Cardiology Diagnoses Paroxysmal atrial fibrillation (H) Ischemic cardiomyopathy Mago Sotomayor, ATTENDANT CAMPGROUND MEDIA LIBRARIAN Zz Sh Cv Echocard Procedures ECHO COMPLETE WITH OPTISON Echocardiogram [address] [place] [address] [facility] [address] [place] [phone] Phone: Referral ID Status Reason Start Date Expiration Date Visits Requ ested Visits Authorized [id number] Closed 04/23/2018 04/23/2019 1 1 Encounter Details Date Type Department Care Team Description 04/30/2018 Hospital Encounter [place] Mago Mina, P aroxysmal atrial fibrillation (H); CV Echocardiography ATTENDANT CAMPGROUND AQUILINO Ischemic cardiomyopathy [address] [facility] [address] [place] [address] Social History Tobacco Use Types Packs/Day [...] [address] [place] [phone] (Wo rk) 08/16/2022 Ancillary Procedure Cardiology Timothy Smith MD [address] [place] [id number] (Wo rk) 08/16/2022 Office Visit Cardiology Timothy Smith MD [address] [place] [id number] (Wo rk) documented as of this encounter Procedures Procedure Name Priority Date/Time Associated Diagnosis Comme nts ECHO COMPLETE WITH Routine 04/30/2018 11:54 Paroxysmal atrial Results for this OPTISON AM CDT fibrillation (H) procedure are in Ischemic cardiomyopathy the results section. documented in this encounter Results ECHO COMPLETE WITH OPTISON (04/30/2018 11:54 AM CDT) Anatomical Region Laterality Modality Echocardiography Specimen (Source) Anatomical Collection Method Collection Time Re ceived Time Location / / Volume Laterality 04/30/2018 11:04 AM CDT Narrative 04/30/2018 1:50 PM CDT [id number]^RESHMA^MAGO^N [facility] Heart [facility]chocardi[facility] Laboratory [address] [facility] [address] [place] [id number] Name: RADHA VILLA : 1940 Study Date: 04/30/2018 11:04 AM Age: 77 yrs Gender: Male Patient Location: [facility] Reason For Study: , Paroxysmal atrial fi brillation (H), Ischemic cardiomyopathy Ordering Physician: MAGO JUSTICE Referring Physician: MAGO JUSTICE Performed By: Kimberly Orantes, RDCS BSA: 2.5 m2 Height: 71 in Weight: 305 lb HR: 80 BP: 125/71 mmHg __ Procedure Complete Echo Adult. Contrast Optison. __ Interpretation Summary The left ventricle is normal in size. There is normal left ventricular wall th ickness. The visual ejection fraction is estimate d at 35-40%. Left ventricular diastolic function is i ndeterminate. There is moderate global hypokinesia of the left ventricle. Septal motion is consistent with conduct ion abnormality. The right ventricle is mild to moderatel y dilated. The right ventricular systolic function is mild to moderately reduced. There is a pacemaker lead in the right v entricle. The left atrium is mild to moderately di lated. The right atrium is mild to moderately d ilated. Pacer wire in right atrium The mitral valve leaflets are mildly thi ckened. There is mild mitral annular calcificati on. There is trace mitral regurgitation. There is trace to mild tricuspid regurgi tation. The right ventricular systolic pressure is approximated at 27.2mmHg plus the right atrial pressure. There is trivial trileaflet aortic scler osis. The rhythm was atrial fibrillation. The patient exhibited occasional PVCs. The study was technically difficult. Chambers ited views were obtained. Optison contrast was used without apparent compl ications. Since 01/17/2018, no significant change except decreased RVSP . __ Left Ventricle The left ventricle is normal in size. Th ere is normal left ventricular wall thickness. The visual ejection fraction is estimated at 35-40%. Left ventricular systolic function is moderat vernon reduced. Left ventricular diastolic function is indeterminate. The re is moderate global hypokinesia of the left ventricle. Septal motion is con sistent with conduction abnormality. There is no thrombus seen in the left ve ntricle. Right Ventricle The right ventricle is mild to moderatel y dilated. There is normal right ventricular wall thickness. The right ve ntricle is not well visualized. The right ventricular systolic function is m ild to moderately reduced. There is a pacemaker lead in the right ventricle. Atria The left atrium is mild to moderately di lated. The right atrium is mild to moderately dilated. Pacer wire in right atrium. Intact atrial septum. Mitral Valve The mitral valve leaflets are mildly thi ckened. There is mild mitral annular calcification. There is trace mitral reg urgitation. Tricuspid Valve The tricuspid valve is not well visualiz ed, but is grossly normal. There is trace to mild tricuspid regurgitation. T he right ventricular systolic pressure is approximated at 27.2mmHg plus the rig ht atrial pressure. Right ventricular systolic pressure is elevated, consisten t with mild pulmonary hypertension. Aortic Valve There is trivial trileaflet aortic scler osis. No aortic regurgitation is present. Pulmonic Valve The pulmonic valve is not well visualize d. There is no pulmonic valvular regurgitation. Vessels The aortic root is not well visualized. The aortic root is normal size. Normal size ascending aorta. The inferior vena cava is not dilated. Pulmonary arteries not well visualized. Pericardium The pericardium appears normal. There is no pericardial effusion. Rhythm The rhythm was atrial fibrillation. The patient exhibited occasional PVCs. __ MMode/2D Measurements & Calculations IVSd: 0.97 cm LVIDd: 5.6 cm LVIDs: 4.1 cm LVPWd: 0.95 cm FS: 26.9 % LV mass(C)d: 206.5 grams LV mass(C)dI: 81.8 grams/m2 LA dimension: 4.4 cm LA Volume (BP): 85.6 ml LA Volume Index (BP): 34.0 ml/m2 RWT: 0.34 Doppler Measurements & Calculations MV E max pascual: 113.0 cm/sec MV dec time: 0.19 sec TR max pascual: 260.6 cm/sec TR max P.2 mmHg E/E' av.4 Lateral E/e': 7.5 Medial E/e': 17.3 __ Report approved by: Pop Pham 04/30/2018 01:50 PM Procedure Note Willi Colmenares MD - 04/30/2018F ormatting of this note might be different from the original. [id number]^RESHMA^MAGO^Evaristo [facility] Heart Echocardiography Laboratory [facility] [facility] [address] [place] [address] Name: RADHA VILLA : 1940 Study Date: 04/30/2018 11:04 AM Age: 77 yrs Gender: Male Patient Location: [facility] Reason For Study: , Paroxysmal atrial fi brillation (H), Ischemic cardiomyopathy Ordering Physician: MAGO JUSTICE Referring Physician: MAGO JUSTICE Performed By: Kimberly Orantes RDCS BSA: 2.5 m2 Height: 71 in Weight: 305 lb HR: 80 BP: 125/71 mmHg __ Procedure Complete Echo Adult. Contrast Optison. __ Interpretation Summary The left ventricle is normal in size. There is normal left ventricular wall th ickness. The visual ejection fraction is estimate d at 35-40%. Left ventricular diastolic function is i ndeterminate. There is moderate global hypokinesia of the left ventricle. Septal motion is consistent with conduct ion abnormality. The right ventricle is mild to moderatel y dilated. The right ventricular systolic function is mild to moderately reduced. There is a pacemaker lead in the right v entricle. The left atrium is mild to moderately di lated. The right atrium is mild to moderately d ilated. Pacer wire in right atrium The mitral valve leaflets are mildly thi ckened. There is mild mitral annular calcificati on. There is trace mitral regurgitation. There is trace to mild tricuspid regurgi tation. The right ventricular systolic pressure is approximated at 27.2mmHg plus the right atrial pressure. There is trivial trileaflet aortic scler osis. The rhythm was atrial fibrillation. The patient exhibited occasional PVCs. The study was technically difficult. Chambers ited views were obtained. Optison contrast was used without apparent compl ications. Since 01/17/2018, no significant change except decreased RVSP . __ Left Ventricle The left ventricle is normal in size. Th ere is normal left ventricular wall thickness. The visual ejection fraction is estimated at 35-40%. Left ventricular systolic function is moderat vernon reduced. Left ventricular diastolic function is indeterminate. The re is moderate global hypokinesia of the left ventricle. Septal motion is con sistent with conduction abnormality. There is no thrombus seen in the left ve ntricle. Right Ventricle The right ventricle is mild to moderatel y dilated. There is normal right ventricular wall thickness. The right ve ntricle is not well visualized. The right ventricular systolic function is m ild to moderately reduced. There is a pacemaker lead in the right ventricle. Atria The left atrium is mild to moderately di lated. The right atrium is mild to moderately dilated. Pacer wire in right atrium. Intact atrial septum. Mitral Valve The mitral valve leaflets are mildly thi ckened. There is mild mitral annular calcification. There is trace mitral reg urgitation. Tricuspid Valve The tricuspid valve is not well visualiz ed, but is grossly normal. There is trace to mild tricuspid regurgitation. T he right ventricular systolic pressure is approximated at 27.2mmHg plus the rig ht atrial pressure. Right ventricular systolic pressure is elevated, consisten t with mild pulmonary hypertension. Aortic Valve There is trivial trileaflet aortic scler osis. No aortic regurgitation is present. Pulmonic Valve The pulmonic valve is not well visualize d. There is no pulmonic valvular regurgitation. Vessels The aortic root is not well visualized. The aortic root is normal size. Normal size ascending aorta. The inferior vena cava is not dilated. Pulmonary arteries not well visualized. Pericardium The pericardium appears normal. There is no pericardial effusion. Rhythm The rhythm was atrial fibrillation. The patient exhibited occasional PVCs. __ MMode/2D Measurements & Calculations IVSd: 0.97 cm LVIDd: 5.6 cm LVIDs: 4.1 cm LVPWd: 0.95 cm FS: 26.9 % LV mass(C)d: 206.5 grams LV mass(C)dI: 81.8 grams/m2 LA dimension: 4.4 cm LA Volume (BP): 85.6 ml LA Volume Index (BP): 34.0 ml/m2 RWT: 0.34 Doppler Measurements & Calculations MV E max pascual: 113.0 cm/sec MV dec time: 0.19 sec TR max pascual: 260.6 cm/sec TR max P.2 mmHg E/E' av.4 Lateral E/e': 7.5 Medial E/e': 17.3 __ Report approved by: Pop Pham 04/30/2018 01:50 PM Mago Sotomayor ATTENDANT CAMPGROUND MEDIA LIBRARIAN CV ECHO ORDERABLES documented in this encounter Visit Diagnoses Diagnosis Paroxysmal atrial fibrillation (H) Atrial fibrillation Ischemic cardiomyopathy Other specified forms of chronic ischemi c heart disease documented in this encounter Administered Medications Inactive Administered Medications - up to 3 most recent administrations Medication Order MAR Action Action Date Dose Rate Site perflutren diluted 1mL to 2mL with Given 04/30/2018 11:55 AM CDT 3 mLs saline (OPTISON) diluted injection 3 mL 3 mL, Intravenous, ONCE, On Sun04/30/18 at 1200, For 1 dose, [facility] [id number] documented in this encounter Care Teams Wharf Helper Relationship Specialty Start Date End Date Clinic, [facility] [place] PCP - General 01/16/18 07/01/18 [address] [place] [address] documented as of this encounter
--- OUTSIDE RECORDS SUMMARY | 2022-06-22 08:57 | XMS_ITS | Encounter Summary ---
:1940 Author Organization [place] Address [address] [place] [address] Care Team Providers Name Role Phone Graham Licona MD Primary Care Provider Reason for Visit Reason Onset Date Comments Refill Request 08/10/2017 metoprolol Encounter Details Date Type Department Care Team Description 08/10/2017 Refill [facility] Zarina Smith MD Refill Request Clinic [place] [address] (metoprolol) [address] [facility] [address] [place] [address] [place] [phone] Social History Tobacco Use Types Packs/Day Years [...] [address] [place] [id number] (Wo rk) 08/16/2022 Ancillary Procedure Cardiology Timothy Smith MD [address] [place] [phone] (Wo rk) 08/16/2022 Office Visit Cardiology Timothy Smith MD [address] [place] [id number] (Wo rk) documented as of this encounter Visit Diagnoses Diagnosis PAF (paroxysmal atrial fibrillation) (H) Atrial fibrillation documented in this encounter Care Teams Director Of Customer Acquisition Relationship Specialty Start Date End Date Graham Licona MD PCP - General Family Practice 04/13/17 01/15/18 [facility] [address] [place] [address] documented as of this encounter
--- OUTSIDE RECORDS SUMMARY | 2022-06-22 08:57 | XMS_ITS | Encounter Summary ---
:1940 Author Organization [place] Address [address] [place] [address] Care Team Providers Name Role Phone Graham Licona MD Primary Care Provider Reason for Visit Reason Comments Pacemaker Check Alert Encounter Details Date Type Department Care Team Description 06/12/2017 Documentation Only [facility] Lula Pa, Pace maker Check Heart Clinic Patt RN (Alert) [address] [facility] [address] [place] [address] Social History Tobacco Use Types Packs/Day Years Used Date Never Smoker Alcohol Use Standard Drinks/Week Comments No 0 (1 standard drink = 0.6 oz pure alcoho l) Sex Assigned at Date Recorded Not on file documented as of this encounter Progress Notes Lula Pa RN - 06/12/2017 2:50 PM CDT [facility]X [facility]-Alert for VHR Latitude alert for VT episode occurrence received- EGMs showed RVR response to AF, rates 160-170 bpm, longest lasting 1 minute. Patient is in chronic AF and is on Eliquis. Will continue to monitor. Heide Pa RN documented in this encounter Plan of Treatment Upcoming Encounters Date Type Specialty Care Team Description 06/26/2022 Ancillary Procedure Cardiology Seng Canchola MD [address] [facility] [address] [place] [address] (Wo rk) 08/16/2022 Ancillary Procedure Cardiology Timothy Smith MD [address] [place] [phone] (Wo rk) 08/16/2022 Office Visit Cardiology Timothy Smith MD [address] [place] [phone] (Wo rk) documented as of this encounter Visit Diagnoses Not on filedocumented in this encounter Care Teams Pier Hand Relationship Specialty Start Date End Date Graham Licona MD PCP - General Family Practice 04/13/17 01/15/18 [facility] [address] [place] [address] documented as of this encounter
--- OUTSIDE RECORDS SUMMARY | 2022-06-22 08:57 | XMS_ITS | Encounter Summary ---
:1940 Author Organization [place] Address [address] [place] [address] Care Team Providers Name Role Phone [facility], [facility] Primary Care Provider [phone] Encounter Details Date Type Department Care Team Description 02/22/2018 [facility] Heart [facility] emic cardiomyopathy Clinic [place] [id number] [place] [address] [address] [place] [address] Social History Tobacco Use [...] [address] [place] [phone] (Wo rk) 08/16/2022 Ancillary Procedure Cardiology Timothy Smith MD [address] [place] [id number] (Wo rk) 08/16/2022 Office Visit Cardiology Timothy Smith MD [address] [place] [phone] (Wo rk) documented as of this encounter Procedures Procedure Name Priority Date/Time Associated Diagnosis Comme nts BASIC METABOLIC Routine 02/22/2018 9:11 AM Ischemic cardiomyop athy Results for this PANEL CDT procedure are i n the results section. documented in this encounter Results (ABNORMAL) Basic metabolic panel (02/22/2018 9:11 AM CDT) P athologist Signature Sodium 143 133 - 144 02/22/2018 [place] mmol/L 10:15 AM [facility] Potassium 4.2 3.4 - 5.3 02/22/2018 [place] mmol/L 10:15 AM [facility] Chloride 108 94 - 109 02/22/2018 [place] mmol/L 10:15 AM [facility] Carbon Dioxide 30 20 - 32 02/22/2018 [place] mmol/L 10:15 AM [facility] Anion Gap 5 3 - 14 02/22/2018 [place] mmol/L 10:15 AM [facility] Glucose 151 (H) 70 - 99 02/22/2018 [place] mg/dL 10:15 AM [facility] Urea Nitrogen 30 7 - 30 02/22/2018 [place] mg/dL 10:15 AM [facility] Creatinine 1.17 0.66 - 02/22/2018 [place] 1.25 mg/dL 10:15 AM [facility] GFR Estimate 60 (L) >60 02/22/2018 [place] mL/min/1.7 10:[address] Comment: Non GFR Calc GFR Estimate If 73 >60 mL/min/1.7m2 02/22/2018 10:15 AM [facility] Comment: GFR Calc Calcium 9.1 8.5 - 10.1 mg/dL 02/22/2018 10:15 AM [facility] Specimen Anatomical Collection Method Collection Time Receive d Time (Source) Location / / Volume Laterality Blood specimen 02/22/2018 9:11 AM 018 9:17 (specimen) [facility] M[facility]otomayor COSTING ANALYST NAVIGATION OFFICER LAB - BLOOD ORDERABLES Performing Organization Address City/State/ZIP Code Phon e Number [facility] [address] [address] [facility] [address] [phone] documented in this encounter Visit Diagnoses Diagnosis Ischemic cardiomyopathy Other specified forms of chronic ischemi c heart disease documented in this encounter Care Teams Mixer Driver Relationship Specialty Start Date End Date Clinic, [facility] [place] PCP - General 01/16/18 07/01/1823366 [place] [address] documented as of this encounter
--- OUTSIDE RECORDS SUMMARY | 2022-06-22 08:57 | XMS_ITS | Encounter Summary ---
:1940 Author Organization [place] Address [address] [place] [address] Care Team Providers Name Role Phone Graham Licona MD Primary Care Provider Encounter Details Date Type Department Care Team Description 11/14/2017 Documentation Only [facility] luis antonio, [facility] [place] [address] [facility] [address] [place] [address] Social History Tobacco Use Types Packs/Day Years Used Date Never Smoker Alcohol Use Standard Drinks/Week Comments No 0 (1 standard drink = 0.6 oz pure alcoho l) Sex Assigned at Date Recorded Not on file documented as of this encounter Progress Notes Sarina Carty RN - 11/14/2017 7:36 AM CST Latitude alert received for V>A. Since last alert on 10/24 there have been 6 VT episodes and 10 NSVT episodes - available EGMs continue to show irregular V beats suggestive of RVR related to his permanent AF. Rates 160s-170s, longest episode 1 minute 18 seconds. About 15-20% of beats greater than 100 bpm. Patient is on 100 mg of metoprolol and eliquis. He is coming in for annual check on 01/16. AlyRN ICATION DISTRIBUTOR documented in this encounter Plan of Treatment Upcoming Encounters Date Type Specialty Care Team Description 06/26/2022 Ancillary Procedure Cardiology Seng Canchola MD [address] [facility] [address] [place] [id number] (Wo rk) 08/16/2022 Ancillary Procedure Cardiology Timothy Smith MD [address] [place], [place] [address] (Wo rk) 08/16/2022 Office Visit Cardiology Timothy Smith MD [address] [place] [phone] (Wo rk) documented as of this encounter Visit Diagnoses Not on filedocumented in this encounter Care Teams Front Line Supervisor Relationship Specialty Start Date End Date Graham Licona MD PCP - General Family Practice 04/13/17 01/15/18 [facility] [address] [place] [address] documented as of this encounter
--- OUTSIDE RECORDS SUMMARY | 2022-06-22 08:57 | XMS_ITS | Encounter Summary ---
:1940 Author Organization [place] Address [address] [place] [address] Care Team Providers Name Role Phone Clinic, [facility] Primary Care Provider Reason for Referral Diagnostic Imaging XR - Closed Specialty Diagnoses / Procedures Referred By Contact Refer red To Contact Radiology. Diagnoses Persistent atrial fibrillation (H) Timothy Smith MD Xray Procedures XR Chest [address] [address] Phone: Fax: Referral ID Status Reason Start Date Expiration Date Visits Requ ested Visits Authorized [id number] Closed 05/02/2018 05/07/2019 1 1 Reason for Visit Diagnostic Imaging XR - Closed Specialty Diagnoses / Procedures Referred By Contact Refer red To Contact Radiology. Diagnoses Persistent atrial fibrillation (H) Timothy Smith MD Rh Xray Procedures XR Chest [address] [address] [address] Phone: Fax: Referral ID Status Reason Start Date Expiration Date Visits Requ ested Visits Authorized [id number] Closed 05/02/2018 05/07/2019 1 1 Encounter Details Date Type Department Care Team Description 05/02/2018 Hospital Encounter [facility] Timothy Smith MD Persistent atrial [facility] [address] fibrillation (H) [address] [place] [phone] Social History Tobacco Use Types Packs/Day Years [...] [address] [place] [id number] (Wo rk) 08/16/2022 Ancillary Procedure Cardiology Timothy Smith MD [address] [place] [phone] (Wo rk) 08/16/2022 Office Visit Cardiology Timothy Smith MD [address] [place] [phone] (Wo rk) documented as of this encounter Procedures Procedure Name Priority Date/Time Associated Diagnosis Comme nts XR CHEST 1 VIEW Routine 05/02/2018 4:14 PM Persistent atrial R esults for this CDT fibrillation (H) procedure a re in the results section. documented in this encounter Results XR Chest 1 View (05/02/2018 4:14 PM CDT) Anatomical Region Laterality Modality Chest Digital Radiography Specimen (Source) Anatomical Location Collection Method / Collectio n Time Received Time / Laterality Volume Impressions 05/03/2018 10:01 AM CDT IMPRESSION: Portable chest. Pulmonary vascular congestion has worsened in the interval since the prior study. P rior median sternotomy for CABG. Implantable cardiac device and bot h leads appear unchanged in position. Heart is normal in size. No pn eumothorax. ANTHONY CHAO MD Narrative 05/03/2018 10:01 AM CDT CHEST ONE VIEW ??05/02/2018 4:14 PM HISTORY: ??Persistent atrial fibrillatio n (H). COMPARISON: Chest x-ray 02/04/2016. Procedure Note Anthony Chao MD - 05/03/2018Form atting of this note might be different from the original. CHEST ONE VIEW 05/02/2018 4:14 PM HISTORY: Persistent atrial fibrillation (H). COMPARISON: Chest x-ray 02/04/2016. IMPRESSION: Portable chest. Pulmonary va scular congestion has worsened in the interval since the prior study. P rior median sternotomy for CABG. Implantable cardiac device and bot h leads appear unchanged in position. Heart is normal in size. No pn eumothorax. ANTHONY CHAO MD Timothy Smith MD IMG DIAGNOSTIC IMAGING ORDER ANN documented in this encounter Visit Diagnoses Diagnosis Persistent atrial fibrillation (H) Atrial fibrillation documented in this encounter Care Teams Office Machines Teacher Relationship Specialty Start Date End Date [facility] [place] PCP - General 01/16/18 07/01/18 [address] [place] [address] documented as of this encounter
--- OUTSIDE RECORDS SUMMARY | 2022-06-22 08:57 | XMS_ITS | Encounter Summary ---
:1940 Author Organization [place] Address [address] [place] [address] Care Team Providers Name Role Phone [facility], [facility] Primary Care Provider Reason for Referral - Closed Specialty Diagnoses / Procedures Referred By Contact Refer red To Contact Diagnoses Paroxysmal atrial fibrillation (H) Ischemic cardiomyopathy Mago Sotomayor APRN CNP [address] [place] [phone] Referral ID Status Reason Start Date Expiration Date Visits Requ ested Visits Authorized [id number] Closed 04/23/2018 04/23/2019 1 1 Reason for Visit Reason Comments Follow Up Holter /Echo - Closed Specialty Diagnoses / Procedures Referred By Contact Refer red To Contact Diagnoses SOB (shortness of breath) Timothy Smith MD [address] [place] [id number] Referral ID Status Reason Start Date Expiration Date Visits Requ ested Visits Authorized [id number] Closed 01/23/2018 01/23/2019 1 1 Encounter Details Date Type Department Care Team Description 01/23/2018 Office Visit [facility] Timothy Smith MD [address] [place] [id number] Ischemic cardiomyopathy (Primary Dx); [facility] Clinic Mago Kessler APRN [employer] [address] [place] [phone] Paroxysmal atrial fibrillation (H); [address] SOB (shor tness of breath); [facility] [address] 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) [place] [phone] Social History Tobacco Use Types Packs/Day Years Used Date Never Smoker Smokeless Tobacco: Never Used Alcohol Use Standard Drinks/Week Comments No 0 (1 standard drink = 0.6 oz pure alcoho l) Sex Assigned at Date Recorded Not on file documented as of this encounter Last Filed Vital Signs Vital Sign Reading Time Taken Comments Blood Pressure 122/76 01/23/2018 10:07 AM CDT Pulse 68 01/23/2018 10:07 AM CDT Temperature - - Respiratory Rate - - Oxygen Saturation 93% 01/23/2018 10:07 AM CDT Inhaled Oxygen Concentration - - Weight 138.8 kg (305 lb 14.4 oz) 01/23/2018 10:07 AM CDT Height 180.3 cm (5' 11) 01/23/2018 10:07 AM CDT Body Mass Index 42.66 01/23/2018 10:07 AM CDT documented in this encounter Patient Instructions Patient InstructionsMago Keating, TITLE MANAGER [employer] - 01/23/2018 11:00 AM CDT Recheck labs in 1 month No changes Wear a support hose especially on the left leg Light to medium support on during the day and off at night OK to order online Component Latest Ref Rng & Units 01/23/2018 Sodium 136 - 145 mmol/L 141 Potassium 3.5 - 5.1 mmol/L 4.4 Chloride 98 - 107 mmol/L 101 Carbon Dioxide 23 - 29 mmol/L 29 Anion Gap 6 - 17 mmol/L 15.4 Glucose 70 - 105 mg/dL 152 (H) Urea Nitrogen 7 - 30 mg/dL 27 Creatinine 0.70 - 1.30 mg/dL 1.27 GFR Estimate >60 mL/min/1.7m2 55 (L) GFR Estimate If Black >60 mL/min/1.7m2 66 Calcium 8.5 - 10.5 mg/dL 10.1 documented in this encounter Progress Notes Mago Keating APRN CNP - 01/23/2018 4:30 PM CDT Service Date: 01/23/2018 HISTORY OF PRESENT ILLNESS: Mr. Villa is a delightful 77-year-old gentleman that I am having the pleasure of meeting today. He has a history of atrial fibrillation, which is now persistent. Briefly, hehas a history of sinus node dysfunction with pacemaker implantation. He is on rate control and antico agulation. He is followed by Dr. Smith. In 11/2016, his losartan was discontinued and metoprolol was increased to 100 mg once daily. He was seeing Dr. Smith for his annual visit on 01/16/2018 and had complaints of fatigue and shortness of breath. He was found to have increased leg edema, left greater than right. This is also the leg where his saphenous vein was harvested for his bypass surgery. He is on furosemide 20 mg daily; however,the patient states that he is actually taking 40 mg daily. He is also on spironolactone [address] Smtih ordered a repeat echocardiogram to reassess his LV function. He also ordered a repeat Holter monitor to see if he had adequate rate control. Holter monitor was completed. This showed a persistent fibrillation with average heart rate of 77 beats per minute. Minimum heart rate was 58 beats per minute with a max heart rate of 150 beats per minute at 6:43 a.m. The patient had 11,761 isolated ventricular ectopic beats. He also had some brief nonsustained VT, longest being 8 beats at 97 beats per minute. Echocardiogram was completed on 01/17, which showed an EF of 35%-40% with global hypokinesis noted in the left ventricle. RV function was moderately reduced. He had 1+ mitral insufficiency, 1+ tricuspid insufficiency and RVSP was at 39.7 mmHg plus RAP. When compared to his previous echo from 2 years earlier, his ejection fraction had declined (previously was 50%-55%). Angiogram was completed 01/2016. This showed occluded upper sioux coronary arteries with patent bypass graft. His proximal left main was occluded. LAD was fed by saphenous vein graft. Circumflex had a vein graft to the obtuse marginal. RCA was completely occluded. He had a saphenous vein graft to the LAD and diagonal that were widely patent and the saphenous vein graft to the OM was widely patent. The saphenous vein graft to the PDA had 4 unusual bends noted per Dr. Heard. FFR was negative. At this time, Mr. Villa denies chest pain, shortness of breath, lightheadedness or dizziness. He states that at times he feels like his legs do have lower extremity edema. He tries not add salt to his food, but states that he understands he should be on a low sodium diet. BMP completed today showed a creatinine of 1.27, potassium of 4.4. All other review of systems and past medical history are noted below. ASSESSMENT AND PLAN: Mr. Villa is a delightful 77-year-old gentleman here today for followup. 1. Persistent atrial fibrillation. In reviewing his history, he had a history of paroxysmal atrial fibrillation that is now persistent. His rate is adequately controlled. He did have the 1 episode of RVR that was briefly in the morning. I did review this with Dr. Smith and he agreed the rate appeared adequately controlled. He is on Eliquis at 5 mg b.i.d. and has no concerns with bleeding issues. 2. Sick sinus syndrome with dual-chamber pacemaker implantation. Device is functioning normally. 3. Cardiomyopathy (ischemic). I did offer a repeat angiogram to Mr. Villa. Dr. Smith felt with a drop in EF that this was warranted; however, Mr. Villa was not interested. He states that his last cath showed his vein grafts were patent. He states he is not having any symptoms and prefers to wait. He has had some brief nonsustained VT noted on Holter. Dr. Smith would like to reassess echocardiogram in 3 months to see if his ejection fraction has stabilized. If not, we need to make a decision about ICD upgrade for primary prevention. 4. Known coronary artery disease. Again, he had a CABG x4 in 1986. Angiogram showed complete and patent grafts when Dr. Heard did the angiogram in 2016. He is currently on fenofibrate 160 mg daily, pravastatin 80 mg daily. Last lipid profile was 11/24/2016 (found in Care Everywhere), LDL was 87, total cholesterol 146, triglycerides 116, HDL 36, ratio 4.06, non-HDL 110. Different options were discussed with Mr. Villa today. He does not have RVR noted on Holter. We briefly discussed AV mack ablation; however, this does not appear to be warranted at this time. Also, wediscussed possibility of cardioversion with amiodarone initiation. Although he is not symptomatic ofthe atrial fibrillation, he has had a drop in his ejection fraction. If this continues to be diminished, it may benefit him to proceed with cardioversion to see if the zoroastrian of atrial kick helps improve his EF. In the interim, he is euvolemic on exam. I did recommend that he wear support stocking. His left legdoes have 1+ edema, which is his vein graft bypassed leg. If there are questions or concerns, I have asked that he contact us. As always, thank you for including us in the care of this delightful gentleman. MAGO KEATING NP MT: AISHWARYA Name: RADHA VILLA Account: [id number] : 1940 Service Date: 01/23/2018 Document: [id number] Mago Keating APRN CNP - 01/23/2018 11:00 AM CDT HPI and Plan: #[id number] See dictation Orders Placed This Encounter Procedures ??? Basic metabolic panel No orders of the defined types were placed in this encounter. There are no discontinued medications. Encounter Diagnoses Name Primary? SOB (shortness of breath) ??? Paroxysmal atrial fibrillation (H) Yes ??? Ischemic cardiomyopathy CURRENT MEDICATIONS: Current [...] mg by mouth daily. ??? furosemide (LASIX) 20 MG tablet Take 20 mg by mouth daily ??? GLIPIZIDE PO [...] 80 mg by mouth At Bedtime ??? spironolactone (ALDACTONE) 25 MG tablet Take by mouth daily ALLERGIES Allergies Allergen Reactions ??? No Known Allergies PAST MEDICAL HISTORY: Past Medical History: Diagnosis Date ??? Arthritis ??? Atrial flutter (H) sp ablation 02/27/2013 ??? Coronary artery disease sp CABG ??? Hypertension ??? Malignant neoplasm (H) eye [...] glasses eye cancer removed ENT: Negative Respiratory: Negative dyspnea on exertion getting better Cardiovascular: Negative edema;Positive for Gastroenterology: Negative melena;hematochezia Genitourinary: Negative Musculoskeletal: Positive for arthritis;joint pain Neurologic: Negative Psychiatric: Negative Heme/Lymph/Imm: Negative Endocrine: Positive for diabetes Physical Exam: Vitals: BP 122/76 (BP Location: Left arm, Patient Position: Chair, Cuff Size: Adult Large) Pulse 68 Ht 1.803 m (5' 11) Wt 138.8 kg (305 lb 14.4 oz) SpO2 93% BMI 42.66 kg/m2 Constitutional: cooperative, alert and oriented, well developed, well nourished, in no acute distress Skin: warm and dry to the touch, no apparent skin lesions or masses noted pacemaker incision in the left infraclavicular area was well-healed Head: normocephalic, no masses or lesions Eyes: pupils equal and round wear eye glasses Lymph: ENT: no pallor or cyanosis, dentition good Neck: JVP normal;no carotid bruit Respiratory: clear to auscultation Cardiac: no S3 or S4;no murmurs, gallops or rubs detected irregularly irregular rhythm not assessed this visit GI: abdomen soft obese Extremities and Muscular Skeletal: no deformities, clubbing, cyanosis, erythema observed bilateral LE edema;1+;L greater than R Neurological: no gross motor deficits;affect appropriate Psych: Alert and Oriented x 3 CC [facility] [address] [place] [phone] documented in this encounter Plan of Treatment Upcoming Encounters Date Type Specialty Care Team Description 06/26/2022 Ancillary Procedure Cardiology Seng Canchola MD [address] [place] [phone] (Wo rk) 08/16/2022 Ancillary Procedure Cardiology Timothy Smith MD [address] [place], [place] [phone] (Wo rk) 08/16/2022 Office Visit Cardiology Timothy Smith MD [address] [place], [place] [phone] (Wo rk) Scheduled Referrals Name Type Priority Associated Diagnoses Order S chedule Follow-Up with Referral Routine Paroxysmal atrial Expected : Sofa Inspector fibrillation (H) 04/23/2018 Ischemic cardiomyopathy ([place]), Expires: 01/23/2019 documented as of this encounter Results (ABNORMAL) Basic metabolic panel (02/22/2018 9:11 AM CDT) P athologist Signature Sodium 143 133 - 144 02/22/2018 [facility] mmol/L 10:15 AM [facility] Potassium 4.2 3.4 - 5.3 02/22/2018 [facility] mmol/L 10:15 AM [facility] Chloride 108 94 - 109 02/22/2018 [facility] mmol/L 10:15 AM [facility] Carbon Dioxide 30 20 - 32 02/22/2018 [facility] mmol/L 10:15 AM [facility] Anion Gap 5 3 - 14 02/22/2018 [facility] mmol/L 10:15 AM [facility] Glucose 151 (H) 70 - 99 02/22/2018 [facility] mg/dL 10:15 AM [facility] Urea Nitrogen 30 7 - 30 02/22/2018 [facility] mg/dL 10:15 AM [facility] Creatinine 1.17 0.66 - 02/22/2018 [facility] 1.25 mg/dL 10:15 AM [facility] GFR Estimate 60 (L) >60 02/22/2018 [facility] mL/min/1.7 10:[address] Comment: Non GFR Calc GFR Estimate If 73 >60 mL/min/1.7m2 02/22/2018 10:15 AM [facility] Comment: GFR Calc Calcium 9.1 8.5 - 10.1 mg/dL 02/22/2018 10:15 AM [facility] Specimen Anatomical Collection Method Collection Time Receive d Time (Source) Location / / Volume Laterality Blood specimen 02/22/2018 9:11 AM 018 9:17 (specimen) CDT AM CDT Mago Sotomayor APRN [employer] [facility] - BLOOD ORDERABLES Performing Organization Address City/State/ZIP Code Phon e Number [place] [address] [address] [place], [place] [address] [place] [address] [phone] documented in this encounter Visit Diagnoses Diagnosis Ischemic cardiomyopathy - Primary Other specified forms of chronic ischemi c heart disease Paroxysmal atrial fibrillation (H) Atrial fibrillation SOB (shortness of breath) Shortness of breath Coronary artery disease involving upper sioux coronary artery of upper sioux heart with angina pectoris (H) documented in this encounter Care Teams Tank Terminal Gauger Relationship Specialty Start Date End Date [facility], [place] PCP - General 01/16/18 07/01/18 [address] [place] [address] documented as of this encounter
--- OUTSIDE RECORDS SUMMARY | 2022-06-22 08:57 | XMS_ITS | Encounter Summary ---
:1940 Author Organization [place] Address [address] [place] [address] Care Team Providers Name Role Phone Graham Licona MD Primary Care Provider Reason for Visit Reason Comments Pacemaker Check Clinic Care Coordination - Follow-up Encounter Details Date Type Department Care Team Description 08/13/2017 Documentation Only [facility] Sergo Vega Check; Heart Clinic Shilpi Lynne RN Clinic Care [address] [place] [address] [address] [place] [phone] Social History Tobacco Use Types Packs/Day Years Used Date Never Smoker Alcohol Use Standard Drinks/Week Comments No 0 (1 standard drink = 0.6 oz pure alcoho l) Sex Assigned at Date Recorded Not on file documented as of this encounter Progress Notes Guera Vega RN - 08/13/2017 12:08 PM CST [address] remote check; alert transmission received for VHR/ Pt has a history of atrial flutter. Tracings showing AF with RVR. Episodes have been fairly persistent since the end of July. Hedoes take Eliquis and Metoprolol. Last OV with Dr Smith 12-29-16 mentioned RX adjustment of the BB with the thought of stopping the AMINTA/ARB. Will review with DR SMITH. Pt states he does note the palpitations;he continues with normal activities, but feels fatigued. Will call him after discussing with Dr Smith. Note routed; Aeb 1300: call to pt; per Dr Smith, he is to STOP the Losartan and increase the Metoprolol Succ from 50mg QD to 100mg QD. He will begin this change tomorrow AM. I spoke with his ; if he has any questions he can call the clinic. Abe URED CAR ESCORT documented in this encounter Plan of Treatment Upcoming Encounters Date Type Specialty Care Team Description 06/26/2022 Ancillary Procedure Cardiology Seng Canchola MD [address] [place] [address] (Wo rk) 08/16/2022 Ancillary Procedure Cardiology Timothy Smith MD [address] [place] [address] (Wo rk) 08/16/2022 Office Visit Cardiology Timothy Smith MD [address] [place] [phone] (Wo rk) documented as of this encounter Visit Diagnoses Not on filedocumented in this encounter Care Teams Safety And Skill Based Pay Manager Relationship Specialty Start Date End Date Graham Licona MD PCP - General Family Practice 04/13/17 01/15/18 [facility] [address] [place] [address] documented as of this encounter
--- OUTSIDE RECORDS SUMMARY | 2022-06-22 08:57 | XMS_ITS | Encounter Summary ---
:1940 Author Organization [place] Address [address] [place] [address] Care Team Providers Name Role Phone [facility], [facility] Primary Care Provider [phone] Reason for Referral - Closed Specialty Diagnoses / Procedures Referred By Contact Refer red To Contact Diagnoses Persistent atrial fibrillation (H) Ankur Smith MD [address] [place] [address] Referral ID Status Reason Start Date Expiration Date Visits Requ ested Visits Authorized [id number] Closed 07/04/2018 07/04/2019 1 1 iagnostic Imaging XR - Closed Specialty Diagnoses / Procedures Referred By Contact Refer red To Contact Radiology. Diagnoses Persistent atrial fibrillation (H) Ankur Smith MD Rh Xray Procedures XR Chest 1 View [address] [place] [address] [place] [address] Phone: Fax: Referral ID Status Reason Start Date Expiration Date Visits Requ ested Visits Authorized [id number] Closed 05/02/2018 05/07/2019 1 1 V Testing - Closed Specialty Diagnoses / Procedures Referred By Contact Refer red To Contact Diagnoses Persistent atrial fibrillation (H) Ankur Smith MD Procedures Cardioversion [address] [place] [address] Referral ID Status Reason Start Date Expiration Date Visits Requ ested Visits Authorized [id number] Closed 05/07/2018 05/07/2019 1 1 Reason for Visit Reason Comments Results echo for review - Closed Specialty Diagnoses / Procedures Referred By Contact Refer red To Contact Diagnoses Paroxysmal atrial fibrillation (H) Ischemic cardiomyopathy Mago Sotomayor, SENIOR LIVING ADVISOR SECRETARY SPECIALIST [address] [place] [phone] Referral ID Status Reason Start Date Expiration Date Visits Requ ested Visits Authorized [id number] Closed 04/23/2018 04/23/2019 1 1 Encounter Details Date Type Department Care Team Description 04/30/2018 Office Visit [facility] Mago Sotomayor, SENIOR LIVING ADVISOR SECRETARY SPECIALIST [address] [place] [phone] Persistent atrial fibrillation (H) (Prim arnie Dx); Heart Clinic Ankur Beauchamp MD [address] [place] [phone] Paroxysmal atrial fibrillation (H); [address] [facility] Ischemic cardiomyopathy [place] [address] [place] [phone] Social History Tobacco Use Types Packs/Day Years Used Date Never Smoker Smokeless Tobacco: Never Used Alcohol Use Standard Drinks/Week Comments No 0 (1 standard drink = 0.6 oz pure alcoho l) Sex Assigned at Date Recorded Not on file documented as of this encounter Last Filed Vital Signs Vital Sign Reading Time Taken Comments Blood Pressure 124/76 04/30/2018 2:20 PM CDT Pulse 86 04/30/2018 2:20 PM CDT Temperature - - Respiratory Rate - - Oxygen Saturation 95% 04/30/2018 2:20 PM CDT Inhaled Oxygen Concentration - - Weight 138.8 kg (306 lb) 04/30/2018 2:20 PM CDT Height 180.3 cm (5' 11) 04/30/2018 2:20 PM CDT Body Mass Index 42.68 04/30/2018 2:20 PM CDT documented in this encounter Progress Notes Ankur Smith MD - 04/30/2018 2:55 PM CDT Service Date: 04/30/2018 HISTORY OF PRESENT ILLNESS: I saw Mr. Villa for followup of coronary artery disease, atrial fibrillation and LV dysfunction. He is a 77-year-old white male with obesity and hypertension. He has historyof coronary artery disease with previous CABG. He has sinus node dysfunction, status post AV node ablation and post-pacemaker implantation. The patient has developed persistent atrial fibrillation in the last few months. He previously had atrial flutter ablation in 01/2013. The patient appeared to have controlled ventricular rate at rest, but he has been complaining of leg edema. He has apparent dropof the LV ejection fraction. He does not have chest pain and does not feel palpitations. The patientcurrently is taking Lasix 20 mg b.i.d. but still has significant bilateral leg edema. His creatinineis only mildly elevated. PHYSICAL EXAMINATION: VITAL SIGNS: Blood pressure was 124/76, heart rate 86 beats per minute, body weight 306 pounds. GENERAL: He uses a walker. LUNGS: Clear. CARDIAC: Rhythm was irregularly irregular. The heart sounds were reduced without murmur. ABDOMEN: Examination showed severe obesity. EXTREMITIES: He had 2+ bilateral pitting leg edema. ASSESSMENT AND RECOMMENDATIONS: Mr. Villa continues to have significant leg edema on current dose ofLasix. I have increased Lasix from 20 to 40 mg p.o. b.i.d. He will have a BMP this Sunday to make sure that his potassium is acceptable. Today's echocardiography reported ejection fraction 35%-40%. The patient has declined coronary angiography. I suspect atrial fibrillation might be contributing to the reduced ejection fraction. Based on that, I have started him on amiodarone 200 mg once a day with a plan for DC cardioversion next week. He will have a reassessment of the LV ejection fraction in the end of June. I will see him forfollowup in July. The patient will have baseline amiodarone testing in [place]. cc: [facility] [address] [place] [address] ANKUR SMITH MD MT: MANDIE Name: RADHA VILLA MRN: [id number] Account: [id number] : 1940 Service Date: 04/30/2018 Document: [id number] Ankur Smith MD - 04/30/2018 2:15 PM CDT HPI and Plan: See dictation Orders Placed This Encounter Procedures ??? XR Chest 1 View ??? Basic metabolic panel ??? Hepatic panel ??? TSH ??? Follow-Up with Dock Clerk ??? EKG 12-lead complete w/read (Future)- to be scheduled ??? Cardioversion ??? Echocardiogram ??? Pulmonary function test Orders Placed This Encounter Medications ??? furosemide (LASIX) 40 MG tablet Sig: Take 1 tablet (40 mg) by mouth 2 times daily Dispense: 30 tablet Refill: 3 ??? amiodarone (PACERONE/CODARONE) 100 MG TABS tablet Sig: Take 2 tablets (200 mg) by mouth daily Dispense: 60 tablet Refill: 3 Medications Discontinued During This Encounter Medication Reason ??? furosemide (LASIX) 20 MG tablet Encounter Diagnoses Name Primary? Paroxysmal atrial fibrillation (H) ??? Ischemic cardiomyopathy ??? Persistent atrial fibrillation (H) Yes CURRENT MEDICATIONS: Current Outpatient Prescriptions Medication Sig [...] 2 tablets (200 mg) by mouth daily 60 tablet 3 ??? apixaban ANTICOAGULANT (ELIQUIS) 5 [...] mouth 2 times daily 30 tablet 3 ??? GLIPIZIDE PO [...] 25 MG tablet Take by mouth daily ??? nitroglycerin (NITROSTAT) 0.[address] 0.4 mg under the tongue every 5 minutesas needed for chest pain For chest pain place 1 tablet under the tongue every 5 minutes for 3 doses.If symptoms persist 5 minutes after 1st dose call 911. ??? [DISCONTINUED] furosemide (LASIX) 20 MG tablet Take 20 mg by mouth daily ALLERGIES Allergies Allergen Reactions [...] Respiratory: Positive for sleep apnea;CPAP Cardiovascular: Negative Positive for;edema Gastroenterology: Negative melena;hematochezia Genitourinary: Negative Musculoskeletal: Positive for arthritis;joint pain Neurologic: Negative Psychiatric: Negative Heme/Lymph/Imm: Negative Endocrine: Positive for diabetes Physical Exam: Vitals: BP 124/76 (BP Location: Right arm, Patient Position: Chair, Cuff Size: Adult Large) Pulse 86 Ht 1.803 m (5' 11) Wt 138.8 kg (306 lb) SpO2 95% BMI 42.68 kg/m2 Constitutional: Skin: Head: Eyes: Lymph: ENT: Neck: Respiratory: Cardiac: GI: Extremities and Muscular Skeletal: Neurological: Psych: CC Mago Keating, SENIOR LIVING ADVISOR SECRETARY SPECIALIST [address] [place] [address] Ankur Smith MD - 04/30/2018 2:15 PM CDT HPI and Plan: See dictation Orders Placed This Encounter Procedures ??? XR Chest 1 View ??? Basic metabolic panel ??? Hepatic panel ??? TSH ??? Follow-Up with Dock Clerk ??? EKG 12-lead complete w/read (Future)- to be scheduled ??? Cardioversion ??? Echocardiogram ??? Pulmonary function test Orders Placed This Encounter Medications ??? furosemide (LASIX) 40 MG tablet Sig: Take 1 tablet (40 mg) by mouth 2 times daily Dispense: 30 tablet Refill: 3 ??? amiodarone (PACERONE/CODARONE) 100 MG TABS tablet Sig: Take 2 tablets (200 mg) by mouth daily Dispense: 60 tablet Refill: 3 Medications Discontinued During This Encounter Medication Reason ??? furosemide (LASIX) 20 MG tablet Encounter Diagnoses Name Primary? Paroxysmal atrial fibrillation (H) ??? Ischemic cardiomyopathy ??? Persistent atrial fibrillation (H) Yes CURRENT MEDICATIONS: Current Outpatient Prescriptions Medication Sig [...] 2 tablets (200 mg) by mouth daily 60 tablet 3 ??? apixaban ANTICOAGULANT (ELIQUIS) 5 [...] mouth 2 times daily 30 tablet 3 ??? GLIPIZIDE PO [...] 25 MG tablet Take by mouth daily ??? nitroglycerin (NITROSTAT) 0.[address] 0.4 mg under the tongue every 5 minutesas needed for chest pain For chest pain place 1 tablet under the tongue every 5 minutes for 3 doses.If symptoms persist 5 minutes after 1st dose call 911. ??? [DISCONTINUED] furosemide (LASIX) 20 MG tablet Take 20 mg by mouth daily ALLERGIES Allergies Allergen Reactions [...] Respiratory: Positive for sleep apnea;CPAP Cardiovascular: Negative Positive for;edema Gastroenterology: Negative melena;hematochezia Genitourinary: Negative Musculoskeletal: Positive for arthritis;joint pain Neurologic: Negative Psychiatric: Negative Heme/Lymph/Imm: Negative Endocrine: Positive for diabetes Physical Exam: Vitals: BP 124/76 (BP Location: Right arm, Patient Position: Chair, Cuff Size: Adult Large) Pulse 86 Ht 1.803 m (5' 11) Wt 138.8 kg (306 lb) SpO2 95% BMI 42.68 kg/m2 Constitutional: Skin: Head: Eyes: Lymph: ENT: Neck: Respiratory: Cardiac: GI: Extremities and Muscular Skeletal: Neurological: Psych: CC Mago Keating, SENIOR LIVING ADVISOR SECRETARY SPECIALIST [address] [place] [address] documented in this encounter Plan of Treatment Upcoming Encounters Date Type Specialty Care Team Description 06/26/2022 Ancillary Procedure Cardiology Seng Canchola MD [address] [place] [address] (Wo rk) 08/16/2022 Ancillary Procedure Cardiology Ankur Smith MD [address] [place] [address] (Wo rk) 08/16/2022 Office Visit Cardiology Ankur Smith MD [address] [place] [address] (Wo rk) Scheduled Orders Name Type Priority Associated Diagnoses Order S chedule Cardioversion Echocardiography Routine Persistent atrial Expec star: 05/07/2018 fibrillation (H) (Approximat e), Expires: 2018 Scheduled Referrals Name Type Priority Associated Diagnoses Order S chedule Follow-Up with Referral Routine Persistent atrial Expected : Dock Clerk fibrillation (H) 12/2017 (Approximate), Expires: 04/30/2019 documented as of this encounter Results EKG 12-lead complete w/read (Future)- to be scheduled (07/02/2018 9:53 AM CDT) Narrative This result has an attachment that is no t available. Ankur Smith MD ECG ORDERABLES TSH (05/03/2018 9:58 AM CDT) P athologist Signature TSH 3.79 0.40 - 4.00 05/03/2018 [facility] mU/L 10:39 AM CDT HOSPITAL Specimen Anatomical Collection Method Collection Time Receive d Time (Source) Location / / Volume Laterality Blood specimen 05/03/2018 9:58 AM 018 9:59 (specimen) CDT AM CDT Ankur Smith MD LAB - BLOOD ORDERABLES Performing Organization Address [facility] Phon e Number [facility] [address], [place] [address] [facility] [address] [address] 7, [facility] [phone] (ABNORMAL) Hepatic panel (05/03/2018 9:58 AM CDT) Analysis Performed At Patho logist Time Signature Bilirubin Direct 0.4 (H) 0.0 - 0.2 05/03/2018 [place] mg/dL 10:33 AM [facility] Bilirubin Total 1.0 0.2 - 1.3 05/03/2018 [place] mg/dL 10:33 AM [facility] Albumin 3.7 3.4 - 5.0 05/03/2018 [place] g/dL 10:33 AM [facility] Protein Total 7.9 6.8 - 8.8 05/03/2018 [place] g/dL 10:33 AM [facility] Alkaline 29 (L) 40 - 150 05/03/2018 [place] Phosphatase U/L 10:33 AM [facility] ALT 31 0 - 70 U/L 05/03/2018 [place] 10:33 AM [facility] AST 25 0 - 45 U/L 05/03/2018 [place] 10:33 AM [facility] Specimen Anatomical Collection Method Collection Time Receive d Time (Source) Location / / Volume Laterality Blood specimen 05/03/2018 9:58 AM 018 9:59 (specimen) CDT AM CDT Ankur Smith MD LAB - BLOOD ORDERABLES Performing Organization Address City/[facility] Phon e Number [facility] [address], [place] [address] [place] [address] [address] [place], [place] [address] 7, [facility] [phone] (ABNORMAL) Basic metabolic panel (05/03/2018 9:58 AM CDT) P athologist Signature Sodium 138 133 - 144 05/03/2018 [place] mmol/L 10:33 AM [facility] Potassium 4.5 3.4 - 5.3 05/03/2018 [place] mmol/L 10:33 AM [facility] Chloride 100 94 - 109 05/03/2018 [place] mmol/L 10:33 AM [facility] Carbon Dioxide 31 20 - 32 05/03/2018 [place] mmol/L 10:33 AM [facility] Anion Gap 7 3 - 14 05/03/2018 [place] mmol/L 10:33 AM [facility] Glucose 150 (H) 70 - 99 05/03/2018 [place] mg/dL 10:33 AM [facility] Urea Nitrogen 34 (H) 7 - 30 05/03/2018 [place] mg/dL 10:33 AM [facility] Creatinine 1.25 0.66 - 05/03/2018 [place] 1.25 mg/dL 10:33 AM [facility] GFR Estimate 56 (L) >60 05/03/2018 [place] mL/min/1.7 10:[address] Comment: Non GFR Calc GFR Estimate If 67 >60 mL/min/1.7m2 05/03/2018 10:33 AM [facility] Comment: GFR Calc Calcium 9.2 8.5 - 10.1 mg/dL 05/03/2018 10:33 AM [facility] Specimen Anatomical Collection Method Collection Time Receive d Time (Source) Location / / Volume Laterality Blood specimen 05/03/2018 9:58 AM 018 9:59 (specimen) CDT AM CDT Ankur Smith MD LAB - BLOOD ORDERABLES Performing Organization Address City/State/ZIP Code Phon e Number [facility] [address], [place] [address] [facility] [address] [place], [place] [address] [address] [phone] XR Chest 1 View (05/02/2018 4:14 PM [...] is normal in size. No pn eumothorax. LANI CHAO MD Narrative 05/03/2018 10:01 AM CDT CHEST ONE VIEW ??05/02/2018 4:14 PM HISTORY: ??Persistent atrial fibrillatio n (H). COMPARISON: Chest x-ray 02/04/2016. Procedure Note Lani Chao MD - 05/03/2018Form atting of this [...] is normal in size. No pn eumothorax. LANI CHAO MD Ankur Smith MD IMG DIAGNOSTIC IMAGING ORDER ANN documented in this encounter Visit Diagnoses Diagnosis Persistent atrial fibrillation (H) - Ria jing Atrial fibrillation Paroxysmal atrial fibrillation (H) Atrial fibrillation Ischemic cardiomyopathy Other specified forms of chronic ischemi c heart disease Persistent atrial fibrillation (H) Atrial fibrillation documented in this encounter Care Teams Moth Exterminator Relationship Specialty Start Date End Date [facility], [place] [place] PCP - General 01/16/18 07/01/18 [address] [place] [phone] documented as of this encounter
--- OUTSIDE RECORDS SUMMARY | 2022-06-22 08:57 | XMS_ITS | Encounter Summary ---
:1940 Author Organization [place] Address [facility] [place] [address] Care Team Providers Name Role Phone Clinic, [facility] Primary Care Provider [phone] Reason for Visit Reason Comments Pacemaker Check PPM Latitude NXT Encounter Details Date Type Department Care Team Description 04/24/2018 Allied Health/Nurse [facility] Pac emaker Check (PPM Visit Heart Clinic [place] Latitude NXT) [address] [facility] [address] [place] [phone] Social History Tobacco Use Types Packs/Day Years Used Date Never Smoker Smokeless Tobacco: Never Used Alcohol Use Standard Drinks/Week Comments No 0 (1 standard drink = 0.6 oz pure alcoho l) Sex Assigned at Date Recorded Not on file documented as of this encounter Progress Notes Sary Riojas - 04/24/2018 3:30 PM CDT [employer] EL L121 (S) Remote PPM Device Check CASE FINISHER: 26% Mode: VVIR Presenting Rhythm: CASE FINISHER & VS Heart Rate: vent rates 60 - 140bpm with 10 - 15% of the time rates > 100bpm. Sensing: stable Pacing Threshold: stable Impedance: stable Battery Status: 13.5 years remaining Atrial Arrhythmia: chronic Afib, taking Eliquis. Ventricular Arrhythmia: 7 vent high rates. EGMs available show irregular VS events (RVR) with episodes lasting 10 sec - 1 min. Care Plan: Pt seeing Dr. Smith next week. F/U Latitude NXT q 3 months. Gave results and next transmission date over the phone to pt. KOlson CVT documented in this encounter Plan of Treatment Upcoming Encounters Date Type Specialty Care Team Description 06/26/2022 Ancillary Procedure Cardiology Seng Canchola MD [address] [place] [address] (Wo rk) 08/16/2022 Ancillary Procedure Cardiology Timothy Smith MD [address] [place] [address] (Wo rk) 08/16/2022 Office Visit Cardiology Timothy Smith MD [address] [place], [place] [phone] (Wo rk) documented as of this encounter Procedures Procedure Name Priority Date/Time Associated Diagnosis Comme [facility] PM DEVICE Routine 04/24/2018 9:24 AM Cardiac pacemaker in INTERROGATE REMOTE, UP CDT situ TO 90 DAYS, LEAD/LEADLESS HC INTERR DEVICE EVAL Routine 04/24/2018 Cardiac pacemaker i n REMOTE, PM/LDLS PM/ICD, situ UP TO 90 DAYS documented in this encounter Results INTERROGATION DEVICE EVAL REMOTE, PACER/ICD (35634) (04/24/2018) Narrative This result has an attachment that is no t available. Basil Guadalupe MD PROCEDURES documented in this encounter Visit Diagnoses Diagnosis Cardiac pacemaker in situ - Primary documented in this encounter Care Teams Medical Surgery Nurse Relationship Specialty Start Date End Date Clinic, [facility] PCP - General 01/16/18 07/01/18 [address] [place] [phone] documented as of this encounter
--- OUTSIDE RECORDS SUMMARY | 2022-06-22 08:57 | XMS_ITS | Encounter Summary ---
:1940 Author Organization [place] Address [address] [place] [address] Care Team Providers Name Role Phone Graham Licona MD Primary Care Provider Reason for Visit Reason Onset Date Comments Refill Request 05/25/2017 eliquis Encounter Details Date Type Department Care Team Description 05/25/2017 Refill M [facility] Heart Zarina Smith MD Refill Request (eliquis) [facility] [place] [address] [facility] [address] [place] [address] [place] [phone] Social History Tobacco Use Types Packs/Day Years Used Date Never Smoker Alcohol Use Standard Drinks/Week Comments No 0 (1 standard drink = 0.6 oz pure alcoho l) Sex Assigned at Date Recorded Not on file documented as of this encounter Plan of Treatment Upcoming Encounters Date Type Specialty Care Team Description 06/26/2022 Ancillary Procedure Cardiology Seng Canchola MD [address] [facility] [address] [place] [id number] (Wo rk) 08/16/2022 Ancillary Procedure Cardiology Timothy Smith MD [address] [place] [id number] (Wo rk) 08/16/2022 Office Visit Cardiology Timothy Smith MD [address] [place] [address] (Wo rk) documented as of this encounter Visit Diagnoses Diagnosis Paroxysmal atrial fibrillation (H) Atrial fibrillation documented in this encounter Care Teams Mems Process Engineer Relationship Specialty Start Date End Date Graham Licona MD PCP - General Family Practice 04/13/17 01/15/18 [facility] [address] [place] [address] documented as of this encounter
--- OUTSIDE RECORDS SUMMARY | 2022-06-22 08:57 | XMS_ITS | Encounter Summary ---
:1940 Author Organization [place] Address [address] [place] [address] Care Team Providers Name Role Phone [facility] Primary Care Provider [phone] Reason for Referral - Closed Specialty Diagnoses / Procedures Referred By Contact Refer red To Contact Diagnoses Atrial fibrillation (H) [facility] [address] [address] [place] [address] Referral ID Status Reason Start Date Expiration Date Visits Requ ested Visits Authorized [id number] Closed 04/25/2018 04/25/2019 1 1 Reason for Visit Reason Onset Date Comments Clinic Care Coordination - Follow-up 01/24/2018 Encounter Details Date Type Department Care Team Description 01/24/[address] [facility] Aravind Fierro [facility] [place] Vital RN Coordination - [address] [facility] Follow-up [address] [phone] Social History Tobacco Use Types Packs/Day Years Used Date Never Smoker Smokeless Tobacco: Never Used Alcohol Use Standard Drinks/Week Comments No 0 (1 standard drink = 0.6 oz pure alcoho l) Sex Assigned at Date Recorded Not on file documented as of this encounter Miscellaneous Notes Addendum Note - Aravind Fierro RN - 01/24/2018 11:22 AM CDT Addended by: ARAVIND FIERRO on: 01/24/2018 11:22 AM Modules accepted: Orders Telephone Encounter - Aravind Fierro RN - 01/24/2018 11:16 AM CDT Patient returned call and I carefully explained to him that Mago spoke to Dr. Smith and he would like torepeat an echocardiogram along with a clinic visit with him in three months. I told him that we wantto see if his EF comes up overtime. If it does not, then there would be a couple of options that would be discussed with him in an attempt to raise it. He is fine with this plan and I will place the order. I encouraged him to call us anytime he has questions or concerns. Yogesh Telephone Encounter - Aravind Fierro RN - 01/24/2018 9:23 AM CDT Left message with patient to call afib clinic clinic to discuss Mago's recommendation to repeat an echocardiogram and clinic visit with Dr. Smith in 3 months. Yogesh documented in this encounter Plan of Treatment Upcoming Encounters Date Type Specialty Care Team Description 06/26/2022 Ancillary Procedure Cardiology Seng Canchola MD [address] [place] [id number] (Wo wade) 08/16/2022 Ancillary Procedure Cardiology Timothy Smith MD [address] [place] [address] (Wo rk) 08/16/2022 Office Visit Cardiology Timothy Smith MD [address] [place] [phone] (Wo rk) Scheduled Referrals Name Type Priority Associated Diagnoses Order S chedule Follow-Up with Referral Routine Atrial fibrillation Expect ed: Welding Machine Operator Arc (H) 04/25/20 18 (Approximate), Expires: 01/24/2020 documented as of this encounter Visit Diagnoses Diagnosis Atrial fibrillation (H) - Primary Atrial fibrillation documented in this encounter Care Teams Vaccine Key Customer Leader Relationship Specialty Start Date End Date [facility], [place] PCP - General 01/16/18 07/01/18 [address] [place] [phone] documented as of this encounter
--- OUTSIDE RECORDS SUMMARY | 2022-06-22 08:57 | XMS_ITS | Encounter Summary ---
:1940 Author Organization [place] Address [address] [place] [address] Care Team Providers Name Role Phone Graham Licona MD Primary Care Provider Reason for Visit Reason Onset Date Comments Prior Auth - Medication 12/28/2017 apixaban ANTICOA GULANT (ELIQUIS) 5 MG tablet -TIER EXCEPTION approved Encounter Details Date Type Department Care Team Description 12/28/[address] [facility] Timothy Smith MD Prior Auth - Medication [facility] [place] [address] (apixaban ANTICOAGULANT [address] (ELIQUIS) 5 MG tablet [facility] [address] [place], [place] [address] -TIER EXCEPTION approved [place] [id number] ) Social History Tobacco Use Types Packs/Day Years Used Date Never Smoker Alcohol Use Standard Drinks/Week Comments No 0 (1 standard drink = 0.6 oz pure alcoho l) Sex Assigned at Date Recorded Not on file documented as of this encounter Miscellaneous Notes Telephone Encounter - Ana Noe - 01/03/2018 9:31 AM CDT Images from the original note were not included. Prior Authorization Approval Authorization Effective Date: 01/03/2018 Authorization Expiration Date: 09/30/2018 Medication: apixaban ANTICOAGULANT (ELIQUIS) 5 MG tablet -TIER EXCEPTION approved Reference #: CMM GALICIA [id number] Insurance Company: [employer] Which Pharmacy is filling the prescription (Not needed for infusion/clinic administered): [facility] [address] [place], [place] - [address] [address] Notified: Yes Patient Notified: No Telephone Encounter - Janette Archer - 01/02/2018 3:58 PM CDT Images from the original note were not included. Central Prior Authorization Team PA Initiation Medication: apixaban ANTICOAGULANT (ELIQUIS) 5 MG tablet -TIER EXCEPTION Insurance Company: [employer] - Pharmacy Filling the Rx: [facility] [id number] - [place], [place] - [address] [employer] [facility] Filling Pharmacy Filling Pharmacy Start Date: 01/02/2018 Telephone Encounter - Latesha Rider - 12/28/2017 3:03 PM CDT Central Prior Authorization Team Received call from patient. He states his copay is now $590.00 and needs another tier exception. Patient's phone: [phone] documented in this encounter Plan of Treatment Upcoming Encounters Date Type Specialty Care Team Description 06/26/2022 Ancillary Procedure Cardiology Seng Canchola MD [address] [place] [id number] (Wo rk) 08/16/2022 Ancillary Procedure Cardiology Timothy Smith MD [address] [place] [phone] (Wo rk) 08/16/2022 Office Visit Cardiology Timothy Smith MD [address] [place] [phone] (Wo rk) documented as of this encounter Visit Diagnoses Not on filedocumented in this encounter Care Teams Department Mgr Relationship Specialty Start Date End Date Graham Licona MD PCP - General Family Practice 04/13/17 01/15/18 [facility] [address] [place] [address] documented as of this encounter
--- OUTSIDE RECORDS SUMMARY | 2022-06-22 08:57 | XMS_ITS | Encounter Summary ---
:1940 Author Organization [place] Address [address] [place] [address] Care Team Providers Name Role Phone [facility], [facility] Primary Care Provider [phone] Encounter Details Date Type Department Care Team Description 05/02/2018 Hospital Encounter [facility] Timothy Smith MD On amiodarone [facility] [address] therapy [address] [place] [phone] Social History Tobacco Use Types Packs/Day Years [...] 06/26/2022 Ancillary Procedure Cardiology Seng Canchola MD [address] [place] [id number] (Wo rk) 08/16/2022 Ancillary Procedure Cardiology Timothy Smith MD [address] [place] [phone] (Wo rk) 08/16/2022 Office Visit Cardiology Timothy Smith MD [address] [place] [id number] (Wo rk) documented as of this encounter Procedures Procedure Name Priority Date/Time Associated Diagnosis Comme nts HEMOGLOBIN Routine 05/02/2018 3:59 PM On amiodarone therapy Results for this CDT procedure are i n the results section . documented in this encounter Results Hemoglobin FUTURE anytime (05/02/2018 3:59 PM CDT) athologist Signature Hemoglobin 13.6 13.3 - 17.7 05/02/[address] [facility] g/dL 4:02 PM CDT HOSPITAL Specimen Anatomical Collection Method Collection Time Receive d Time (Source) Location / / Volume Laterality Blood specimen 05/02/2018 3:59 PM 018 4:00 (specimen) CDT PM CDT Timothy Smith MD LAB - BLOOD ORDERABLES Performing Organization Address City/State/ZIP Code Phon e Number M [facility] [address] [address] [facility] [address] [phone] documented in this encounter Visit Diagnoses Diagnosis On amiodarone therapy documented in this encounter Care Teams Professor Of Religion Relationship Specialty Start Date End Date [facility], [facility] PCP - General 01/16/18 07/01/18 [address] [place] [address] documented as of this encounter
--- OUTSIDE RECORDS SUMMARY | 2022-06-22 08:57 | XMS_ITS | Encounter Summary ---
:1940 Author Organization [place] Address [address] [place] [address] Care Team Providers Name Role Phone Clinic, [facility] Primary Care Provider [phone] Reason for Visit Reason Comments Pacemaker Check Annual Threshold Check Encounter Details Date Type Department Care Team Description 01/16/2018 Allied Health/Nurse [facility] Pac emaker Check (Annual Visit [facility] [place] Threshold Check) [address] [facility] [address] [place] [phone] Social History Tobacco Use Types Packs/Day Years Used Date Never Smoker Smokeless Tobacco: Never Used Alcohol Use Standard Drinks/Week Comments No 0 (1 standard drink = 0.6 oz pure alcoho l) Sex Assigned at Date Recorded Not on file documented as of this encounter Progress Notes Lula Pa RN - 01/16/2018 11:00 AM CDT [employer] EL L121 Pacemaker Device Check AP: o % MANAGEMENT TRAINER: 14 % Mode: VVIR 60-130 bpm Underlying Rhythm: AF with variable ventricular rate. Heart Rate: Stable with good variability. Sensing: WNL Pacing Threshold: WNL Impedance: WNL Battery Status: Approximately 13.5 years longevity. Device Site: Well healed, Atrial Arrhythmia: Permanent AF, patient is on Eliquis. Ventricular Arrhythmia: 10 episodes logged as NSVT or VT(V>A), 2 stored EGMs which showed brief episodes of RVR. Setting Change: Programmed Atrial Intrinsic Amplitude off, Programmed Atrial Pace Impedance off. In Latitude the alert for V>A turned off. Care Plan: Follow up with Q 3 month remote checks. Saw Dr. Smith this AM . documented in this encounter Plan of Treatment Upcoming Encounters Date Type Specialty Care Team Description 06/26/2022 Ancillary Procedure Cardiology Seng Canchola MD [address] [place] [address] (Wo rk) 08/16/2022 Ancillary Procedure Cardiology Timothy Smith MD [address] [place] [address] (Wo rk) 08/16/2022 Office Visit Cardiology Timothy Smith MD [address] [place] [phone] (Wo rk) documented as of this encounter Procedures Procedure Name Priority Date/Time Associated Diagnosis Comme nts HC PM DEVICE PROGRAMMING EVAL, Routine 01/16/2018 Cardiac pa cemaker in situ DUAL LEAD PACER documented in this encounter Results PM DEVICE PROGRAMMING EVAL, DUAL LEAD PACER ([id number]) (01/16/2018) Narrative This result has an attachment that is no t available. Timothy Smith MD PROCEDURES documented in this encounter Visit Diagnoses Diagnosis Cardiac pacemaker in situ - Primary documented in this encounter Care Teams Coordinator Of Placement Relationship Specialty Start Date End Date [facility], [facility] PCP - General 01/16/18 07/01/18 [address] [place] [phone] documented as of this encounter
--- OUTSIDE RECORDS SUMMARY | 2022-06-22 08:57 | XMS_ITS | Encounter Summary ---
:1940 Author Organization [place] Address [address] [place] [address] Care Team Providers Name Role Phone Graham Licona MD Primary Care Provider Reason for Visit Reason Onset Date Comments Refill Request 08/13/2017 Encounter Details Date Type Department Care Team Description 08/13/2017 Refill [facility] Zarina Smith MD Refill Request Clinic [place] [address] [place] [address] [facility] [address] [place] [address] [phone] Social History Tobacco Use Types Packs/Day Years [...] MD [address] [place] [phone] (Wo rk) 08/16/2022 Ancillary Procedure Cardiology Timothy Smith MD [address] [place] [phone] (Wo rk) 08/16/2022 Office Visit Cardiology Timothy Smith MD [address] [place] [address] (Wo rk) documented as of this encounter Visit Diagnoses Not on filedocumented in this encounter Care Teams Supervisor Major Appliance Assembly Relationship Specialty Start Date End Date Graham Licona MD PCP - General Family Practice 04/13/17 01/15/18 [facility] [address] [place] [address] documented as of this encounter
--- OUTSIDE RECORDS SUMMARY | 2022-06-22 08:57 | XMS_ITS | Encounter Summary ---
:1940 Author Organization [place] Address [address] [place] [address] Care Team Providers Name Role Phone Clinic, [facility] Primary Care Provider [phone] Encounter Details Date Type Department Care Team Description 01/23/2018 Orders Only [facility] Heart SOB (shortness of breath) [facility] [address] [facility] [address] [place] [phone] Social History Tobacco Use Types Packs/Day Years [...] [address] [place] [id number] (Wo rk) 08/16/2022 Ancillary Procedure Cardiology Timothy Smith MD [address] [place] [phone] (Wo rk) 08/16/2022 Office Visit Cardiology Timothy Smith MD [address] [place] [phone] (Wo rk) documented as of this encounter Procedures Procedure Name Priority Date/Time Associated Diagnosis Comme nts BASIC METABOLIC Routine 01/23/2018 9:50 AM SOB (shortness of R esults for this PANEL CDT breath) procedure are i n the results section. documented in this encounter Results (ABNORMAL) Basic metabolic panel (01/23/2018 9:50 AM CDT) P athologist Signature Sodium 141 136 - 145 01/23/2018 [facility] mmol/L 10:46 AM CDT [facility] A Potassium 4.4 3.5 - 5.1 01/23/2018 [facility] mmol/L 10:46 AM CDT [facility] A Chloride 101 98 - 107 01/23/2018 [facility] mmol/L 10:46 AM CDT [facility] A Carbon Dioxide 29 23 - 29 01/23/2018 [facility] mmol/L 10:46 AM CDT [facility] A Anion Gap 15.4 6 - 17 01/23/2018 [facility] mmol/L 10:46 AM T [facility] A Glucose 152 (H) 70 - 105 01/23/2018 [facility] mg/dL 10:46 AM CDT [facility] A Urea Nitrogen 27 7 - 30 01/23/2018 [facility] mg/dL 10:46 AM CDT [facility] A Creatinine 1.27 0.70 - 01/23/2018 [facility] 1.30 mg/dL 10:46 AM CDT [facility] A GFR Estimate 55 (L) >60 01/23/2018 [facility] mL/min/1.7 10:46 AM CDT [facility] m2 A GFR Estimate If 66 >60 01/23/2018 [facility] Black mL/min/1.7 10:46 AM CDT [facility] m2 A Calcium 10.1 8.5 - 10.5 01/23/2018 [facility] mg/dL 10:46 AM [facility] A Specimen Anatomical Collection Method Collection Time Receive d Time (Source) Location / / Volume Laterality Blood specimen 01/23/2018 9:50 AM 018 9:51 (specimen) CDT AM CDT Timothy Smith MD LAB - BLOOD ORDERABLES Performing Organization Address City/State/ZIP Code Phon e Number [facility] [address] [place] [address] [address] documented in this encounter Visit Diagnoses Diagnosis SOB (shortness of breath) Shortness of breath documented in this encounter Care Teams Mounter Brass Wind Instruments Relationship Specialty Start Date End Date Clinic, [facility] PCP - General 01/16/18 07/01/18 [address] [place] [address] documented as of this encounter
--- OUTSIDE RECORDS SUMMARY | 2022-06-22 08:57 | XMS_ITS | Encounter Summary ---
:1940 Author Organization [place] Address [address] [place] [address] Care Team Providers Name Role Phone Clinic, [facility] Primary Care Provider [phone] Encounter Details Date Type Department Care Team Description 04/30/[address] [facility], Lidya Crenshaw Per vivient atrial Respiratory Therapy fibrillation (H) (Primary [address] D[address]) [place] [address] Social History Tobacco Use Types Packs/Day Years Used Date Never Smoker Smokeless Tobacco: Never Used Alcohol Use Standard Drinks/Week Comments No 0 (1 standard drink = 0.6 oz pure alcoho l) Sex Assigned at Date Recorded Not on file documented as of this encounter Plan of Treatment Upcoming Encounters Date Type Specialty Care Team Description 06/26/2022 Ancillary Procedure Cardiology Seng Canhcola MD [address] [place] [phone] (Wo rk) 08/16/2022 Ancillary Procedure Cardiology Timothy Smith MD [address] [place] [phone] (Wo rk) 08/16/2022 Office Visit Cardiology Timothy Smith MD [address] [place] [phone] (Wo rk) Scheduled Orders Name Type Priority Associated Diagnoses Order S chedule Pulmonary Function PFT Routine Persistent atrial 1 Oc currences starting Test fibrillation (H) 04/30/2018 until 04/30/2019 documented as of this encounter Results General PFT Lab (Please always keep checked) (05/02/2018 3:23 PM CDT) P athologist Signature FVC-Pred 3.67 L [facility] PFT FVC-Pre 2.49 L [facility] PFT FVC-%Pred-Pre 67 % [facility] FEV1-Pre 2.03 L [facility] P[facility] FEV1-%Pred-Pre 74 % [facility] PFT [id number] 72 % [facility] P[facility] [id number]-Pos 81 % [facility] FEFMax-Pred 6.90 L/sec [facility] PFT FEFMax-Pre 6.78 L/sec [facility] PFT FEFMax-%Pred-Pr 98 % [facility] PFT e [id number] 1.96 L/sec [facility] PFT [id number] 2.06 L/sec [facility] PFT HPF1285-%Pred-P 105 % [facility] PFT re ExpTime-Pre 6.47 sec [facility] PFT FIFMax-Pre 5.17 L/sec [facility] PFT VC-Pred 4.23 L [facility] PFT VC-Pre 2.56 L [facility] PFT VC-%Pred-Pre 60 % [facility] P[facility] IC-Pred 4.20 L [facility] PFT IC-Pre 2.31 L [facility] PFT IC-%Pred-Pre 55 % [facility] P[facility] ERV-Pred 0.03 L [facility] PFT ERV-Pre 0.25 L [facility] PFT ERV-%Pred-Pre 830 % [facility] PFT [id number] 76 % [facility] PFT [id number] 81 % [facility] PFT FRCPleth-Pred 3.68 L [...] [facility] VA-%Pred-Pre 69 % [facility] PFT [id number] 65 % [facility] P[facility] [id number] 79 % [facility] Specimen (Source) Anatomical Collection Method Collection Time Re ceived Time Location / / Volume Laterality 05/02/2018 3:23 PM CDT Timothy Smith MD PFT ORDERABLES Performing Organization Address City/State/ZIP Code Phon e Number [facility] documented in this encounter Visit Diagnoses Diagnosis Persistent atrial fibrillation (H) - Ria jing Atrial fibrillation documented in this encounter Care Teams Yardage Control Operator Relationship Specialty Start Date End Date [facility], [facility] Biloxidanny Lares PCP - General 01/16/18 07/01/18 [address] [place] [address] documented as of this encounter
--- OUTSIDE RECORDS SUMMARY | 2022-06-22 08:57 | XMS_ITS | Encounter Summary ---
:1940 Author Organization [place] Address [address] [place] [address] Care Team Providers Name Role Phone [facility], [facility] Primary Care Provider [phone] Reason for Referral CV Testing - Closed Specialty Diagnoses / Procedures Referred By Contact Refer red To Contact Cardiology Diagnoses SOB (shortness of breath) Timothy Smith MD [facility] Cardiac Test [facility] Procedures Holter Monitor 24 hour - Adult [address] [address] [place] [address] [address] [place] [address] Phone: Fax: Referral ID Status Reason Start Date Expiration Date Visits Requ ested Visits Authorized [id number] Closed 01/17/2018 01/23/2019 1 1 Reason for Visit CV Testing - Closed Specialty Diagnoses / Procedures Referred By Contact Refer red To Contact Cardiology Diagnoses SOB (shortness of breath) Timothy Smith MD [facility] Cardiac Test [facility] Procedures Holter Monitor 24 hour - Adult [address] [address] [place] [address] [address] [place] [address] Phone: Fax: Referral ID Status Reason Start Date Expiration Date Visits Requ ested Visits Authorized [id number] Closed 01/17/2018 01/23/2019 1 1 Encounter Details Date Type Department Care Team Description 01/21/2018 Hospital Encounter [place] [facility] Timothy Smith MD SOB ([facility] [address] breath) [address] [facility] [address] [place] [address] [place], [place] [phone] [address] (Work) [phone] Social History Tobacco Use Types Packs/Day Years [...] documented as of this encounter Progress Notes Moises Newton - 01/21/2018 10:56 AM CDT Placed a 24 Hour Holter Monitor. documented in this encounter Plan of Treatment Upcoming Encounters Date Type Specialty Care Team Description 06/26/2022 Ancillary Procedure Cardiology Seng Canchola MD [address] [place] [phone] (Wo rk) 08/16/2022 Ancillary Procedure Cardiology Timothy Smith MD [address] [place] [phone] (Wo rk) 08/16/2022 Office Visit Cardiology Timothy Smith MD [address] [place] [phone] (Wo rk) documented as of this encounter Procedures Procedure Name Priority Date/Time Associated Diagnosis Comme nts HOLTER MONITOR 24 Routine 01/21/2018 10:09 AM SOB (shortness o f Results for this HOUR - ADULT CDT breath) procedure are i n the results section. documented in this encounter Results Holter Monitor 24 hour - Adult (01/21/2018 10:09 AM CDT) [facility] gist Method Time Signature Interpretation Click View RADIOLOGY Heavy Equipment Sales Manager Image link RESULTS to view waveform and result Specimen (Source) Anatomical Collection Method Collection Time Re ceived Time Location / / Volume Laterality 01/21/2018 10:09 AM CDT Narrative This result has an attachment that is no t available. Timothy Smith MD CV CARDIAC SERVICES ORDERABL ES Performing Organization Address City/State/ZIP Code Phon e Number RADIOLOGY RESULTS documented in this encounter Visit Diagnoses Diagnosis SOB (shortness of breath) Shortness of breath documented in this encounter Care Teams Law Firm Receptionist Relationship Specialty Start Date End Date [facility], [facility] PCP - General 01/16/18 07/01/18 [address] [place] [address] documented as of this encounter
--- OUTSIDE RECORDS SUMMARY | 2022-06-22 08:57 | XMS_ITS | Encounter Summary ---
:1940 Author Organization [place] Address [facility] [place] [address] Care Team Providers Name Role Phone [facility], [facility] Primary Care Provider [phone] Reason for Referral - Closed Specialty Diagnoses / Procedures Referred By Contact Refer red To Contact Diagnoses SOB (shortness of breath) Ankur Smith MD [address] [place] [address] Referral ID Status Reason Start Date Expiration Date Visits Requ ested Visits Authorized [id number] Closed 01/23/2018 01/23/2019 1 1 V Testing - Closed Specialty Diagnoses / Procedures Referred By Contact Refer red To Contact Cardiology Diagnoses SOB (shortness of breath) Ankur Smith MD [facility] Procedures Holter Monitor 24 hour - Adult [address] [address] [place] [address] [address] [place] [address] Phone: Fax: Referral ID Status Reason Start Date Expiration Date Visits Requ ested Visits Authorized [id number] Closed 01/17/2018 01/23/2019 1 1 Reason for Visit Reason Comments Annual Visit f/u OV for AF - Closed Specialty Diagnoses / Procedures Referred By Contact Refer red To Contact Diagnoses Typical atrial flutter (H) Ankur Smith MD [address] [place] [address] Referral ID Status Reason Start Date Expiration Date Visits Requ ested Visits Authorized [id number] Closed 12/19/2017 12/19/2018 1 1 Encounter Details Date Type Department Care Team Description 01/16/2018 Office Visit [facility] Ankur Smith MD SOB (shortness of breath) (Primary Dx); [facility] [place] [address] Typical atrial flutter (H) [address] [facility] [address] [facility] [address] [place] [address] [place] [phone] Social History Tobacco Use Types Packs/Day Years Used Date Never Smoker Smokeless Tobacco: Never Used Alcohol Use Standard Drinks/Week Comments No 0 (1 standard drink = 0.6 oz pure alcoho l) Sex Assigned at Date Recorded Not on file documented as of this encounter Last Filed Vital Signs Vital Sign Reading Time Taken Comments Blood Pressure 126/68 01/16/2018 9:32 AM CDT Pulse 66 01/16/2018 9:32 AM CDT Temperature - - Respiratory Rate - - Oxygen Saturation - - Inhaled Oxygen Concentration - - Weight 141.1 kg (311 lb) 01/16/2018 9:32 AM CDT Height 180.3 cm (5' 10.98) 01/16/2018 9:32 AM CDT Body Mass Index 43.4 01/16/2018 9:32 AM CDT documented in this encounter Progress Notes Ankur Smith MD - 01/16/2018 10:08 AM CDT Service Date: 01/16/2018 HISTORY OF PRESENT ILLNESS: I saw Mr. Villa for followup of atrial fibrillation. He is a 5-aemj-krbrdrli male who had a pacemaker implanted for sinus node dysfunction. He has developed persistent atrial fibrillation. He has been on rate control and anticoagulation. When I saw him in 11/2016, losartan was discontinued and the metoprolol dose was increased to 100 mg p.o. daily. A Holter monitor on 01/08/2017 showed average ventricular rate of 81 beats per minute. The patient has been complaining of fatigue and shortness of breath recently. He was found to have leg edema with significant weight gain. He told me that he is on Lasix 20 mg 3 times a day, but that was unconfirmed from pharmacy because they refused to give us the information. He said that he lost about 10 pounds but now he is regaining weight. PHYSICAL EXAMINATION: VITAL SIGNS: Blood pressure was 126/68, heart rate 66 beats per minute, body weight 311 pounds. GENERAL: He had a recent back injury and he does use a walker in the clinic. CARDIOVASCULAR: The cardiac rhythm was irregularly irregular and heart sounds were normal without murmur. LUNGS: Clear. EXTREMITIES: He had 1+ bilateral pitting leg edema. The EKG today showed atrial fibrillation with ventricular rate 86 beats per minute. ASSESSMENT AND RECOMMENDATIONS: Mr. Villa is in chronic atrial fibrillation. At rest, his heart rateis not particularly fast. He has apparent leg edema on diuretic therapy. His previous echo reported normal ejection fraction. I ordered a repeat echocardiogram for reassessment of the LV ejection fraction. Furthermore, we will repeat the Holter to reassess the ventricular rate during atrial fibrillation. If the ventricular rate is uncontrolled with average above 90 beats per minute, we may recommend AV node ablation. On the other hand, if he has controlled ventricular rate, we may attempt a cardioversion of atrial fibrillation followed by amiodarone as a trial for management of his congestive heartfailure. In addition, I suspect chronic renal insufficiency. For that reason he will have a BMP before the next visit in 1 week. The patient has been asked to bring all of his home medications for the next clinic visit. ANKUR SMITH MD MT: AISHWARYA Name: RADHA VILLA MRN: [id number] Account: [id number] : 1940 Service Date: 01/16/2018 Document: [id number] Ankur Smith MD - 01/16/2018 9:45 AM CDT HPI and Plan: See dictation Orders Placed This Encounter Procedures ??? Follow-Up with Cardiac Advanced Practice Provider ??? EKG 12-lead complete w/read - Clinics (performed today) ??? Holter Monitor 24 hour - Adult ??? Echocardiogram No orders of the defined types were placed in this encounter. Medications Discontinued During This Encounter Medication Reason ??? losartan (COZAAR) 25 MG tablet Encounter Diagnoses Name Primary? Typical atrial flutter (H) ??? SOB (shortness of breath) Yes CURRENT MEDICATIONS: Current Outpatient Prescriptions Medication [...] eye cancer removed ENT: Negative Respiratory: Negative Cardiovascular: Negative Gastroenterology: Negative Genitourinary: Negative Musculoskeletal: Positive for arthritis;joint pain Neurologic: Negative Psychiatric: Negative Heme/Lymph/Imm: Negative Endocrine: Positive for diabetes Physical Exam: Vitals: BP 126/68 Pulse 66 Ht 1.803 m (5' 10.98) Wt 141.1 kg (311 lb) BMI 43.4 kg/m2 Constitutional: Skin: Head: Eyes: Lymph: ENT: Neck: Respiratory: Cardiac: GI: Extremities and Muscular Skeletal: Neurological: Psych: CC Ankur Smith MD [address] [place] [id number] documented in this encounter Plan of Treatment Upcoming Encounters Date Type Specialty Care Team Description 06/26/2022 Ancillary Procedure Cardiology Seng Canchola MD [address] [place], [place] [phone] (Wo rk) 08/16/2022 Ancillary Procedure Cardiology Ankur Smith MD [address] [place] [phone] (Wo rk) 08/16/2022 Office Visit Cardiology Ankur Smith MD [address] [place] [phone] (Wo rk) Scheduled Referrals Name Type Priority Associated Diagnoses Order S chedule Follow-Up with Cardiac Referral Routine SOB (shortness of Expected: 01/23/2018 Advanced Practice breath) (Approxima te), Provider Expires: 2018 documented as of this encounter Procedures Procedure Name Priority Date/Time Associated Diagnosis Comme nts EKG 12-LEAD Routine 01/16/2018 9:50 AM Typical atrial Results for this COMPLETE W/READ - CDT flutter (H) procedure are in CLINICS the results section. documented in this encounter Results (ABNORMAL) Basic metabolic panel (01/23/2018 9:50 AM CDT) P athologist Signature Sodium 141 136 - 145 01/23/2018 [facility] mmol/L 10:46 AM CDT [facility] Potassium 4.4 3.5 - 5.1 01/23/2018 [facility] mmol/L 10:46 AM CDT [facility] Chloride 101 98 - 107 01/23/2018 [facility] mmol/L 10:46 AM CDT [facility] Carbon Dioxide 29 23 - 29 01/23/2018 [facility] mmol/L 10:46 AM CDT [facility] Anion Gap 15.4 6 - 17 01/23/2018 [facility] mmol/L 10:46 AM CDT [facility] Glucose 152 (H) 70 - 105 01/23/2018 [facility] mg/dL 10:46 AM CDT [facility] Urea Nitrogen 27 7 - 30 01/23/2018 [facility] mg/dL 10:46 AM CDT [facility] A Creatinine 1.27 0.70 - 01/23/2018 [facility] 1.30 mg/dL 10:46 AM CDT [facility] A GFR Estimate 55 (L) >60 01/23/2018 [facility] mL/min/1.7 10:46 AM CDT [facility] m2 A GFR Estimate If 66 >60 01/23/2018 [facility] Black mL/min/1.7 10:46 AM CDT [facility] m2 A Calcium 10.1 8.5 - 10.5 01/23/2018 [facility] mg/dL 10:46 AM CDT [facility] A Specimen Anatomical Collection Method Collection Time Receive d Time (Source) Location / / Volume Laterality Blood specimen 01/23/2018 9:50 AM 018 9:51 (specimen) CDT AM CDT Ankur Smith MD LAB - BLOOD ORDERABLES Performing Organization Address City/State/ZIP Code Phon e Number [facility] [address] [place] [address] [address] Holter Monitor 24 hour - Adult (01/21/2018 10:09 AM CDT) [facility] gist Method Time Signature Interpretation Click View RADIOLOGY Roustabout Supervisor Image link RESULTS to view waveform and result Specimen (Source) Anatomical Collection Method Collection Time Re ceived Time Location / / Volume Laterality 01/21/2018 10:09 AM CDT Narrative This result has an attachment that is no t available. Ankur Smith MD [facility] ORDERABL ES Performing Organization Address City/State/ZIP Code Phon e Number RADIOLOGY RESULTS EKG 12-lead complete w/read - Clinics (performed today) (01/16/2018 9:50 AM CDT) Narrative This result has an attachment that is no t available. Ankur Smith MD ECG ORDERABLES documented in this encounter Visit Diagnoses Diagnosis SOB (shortness of breath) - Primary Shortness of breath Typical atrial flutter (H) Atrial flutter documented in this encounter Care Teams Marine Electrician Helper Relationship Specialty Start Date End Date Clinic, Vinny Lignum PCP - General 01/16/18 07/01/18 [address] [place] [address] documented as of this encounter
--- OUTSIDE RECORDS SUMMARY | 2022-06-22 08:58 | XMS_ITS | Encounter Summary ---
:1940 Author Organization [place] Address [address] [place] [address] Care Team Providers Name Role Phone Graham Licona MD Primary Care Provider Reason for Visit Reason Comments Pacemaker Check remote alert for VHR Encounter Details Date Type Department Care Team Description 04/20/2017 Documentation Only [facility] Fabiola Hurtado acemaker Check [facility] [place] Bui RN, RN (remote alert for [address] [facility] HEART VHR) [address] [place] [address] [phone] [address] [place] [phone] Social History Tobacco Use Types Packs/Day Years Used Date Never Smoker Alcohol Use Standard Drinks/Week Comments No 0 (1 standard drink = 0.6 oz pure alcoho l) Sex Assigned at Date Recorded Not on file documented as of this encounter Progress Notes Fabiola Hurtado, SIENNA, RN - 04/20/2017 9:28 AM CDT Epos PPM- Alert- NO CHARGE Another alert for VHR- 13 episodes of RVR yesterday at rates of 160-163 BPM lasting 10 seconds to 1 minute and 56 seconds. In past 6 days (when last interrogated) HR overall is still well controlled. We will monitor to assure this does not start to creep up. See Dr SMITH's note on 12/29 regarding possible change in meds if rate is not controlled. SIENNA Cowart documented in this encounter Plan of Treatment Upcoming Encounters Date Type Specialty Care Team Description 06/26/2022 Ancillary Procedure Cardiology Seng Canchola MD [address] [place], [place] [phone] (Wo rk) 08/16/2022 Ancillary Procedure Cardiology Timothy Smith MD [address] [place] [phone] (Wo rk) 08/16/2022 Office Visit Cardiology Timothy Smith MD [address] [place] [phone] (Wo rk) documented as of this encounter Visit Diagnoses Not on filedocumented in this encounter Care Teams Extrusion Die Repair Manager Relationship Specialty Start Date End Date Graham Licona MD PCP - General Family Practice 04/13/17 01/15/18 [facility] [address] [place] [address] documented as of this encounter
--- OUTSIDE RECORDS SUMMARY | 2022-06-22 08:58 | XMS_ITS | Encounter Summary ---
:1940 Author Organization [place] Address [address] [place] [address] Care Team Providers Name Role Phone Graham Licona MD Primary Care Provider Reason for Visit Reason Comments Samples eliquis 5mg Encounter Details Date Type Department Care Team Description 05/14/2017 Care Coordination [facility] Catherine Aranda Sa (eliquis [facility] Crenshaw LPN 5mg) [address] [facility] [address] [place] [phone] Social History Tobacco Use Types Packs/Day Years Used Date Never Smoker Alcohol Use Standard Drinks/Week Comments No 0 (1 standard drink = 0.6 oz pure alcoho l) Sex Assigned at Date Recorded Not on file documented as of this encounter Progress Notes Catherine Aranda LPN - 05/14/2017 8:32 AM CDT We have sent to PA team for a tier review for pts eliquis-we do not yet have the determination-pt called and will be out of his med on Sunday-he will be able to p/u samples @ our location-spoke/w Paola EL who will set aside samples-yvette cummins documented in this encounter Plan of Treatment Upcoming Encounters Date Type Specialty Care Team Description 06/26/2022 Ancillary Procedure Cardiology Seng Canchola MD [address] [facility] [address] [place] [address] (Wo rk) 08/16/2022 Ancillary Procedure Cardiology Timothy Smith MD [address] [place] [phone] (Wo rk) 08/16/2022 Office Visit Cardiology Timothy Smith MD [address] [place] [phone] (Wo rk) documented as of this encounter Visit Diagnoses Not on filedocumented in this encounter Care Teams Boiler Shop Mechanic Relationship Specialty Start Date End Date Graham Licona MD PCP - General Family Practice 04/13/17 01/15/18 [facility] [address] [place] [address] documented as of this encounter
--- OUTSIDE RECORDS SUMMARY | 2022-06-22 08:58 | XMS_ITS | Encounter Summary ---
:1940 Author Organization [place] Address [address] [place] [address] Care Team Providers Name Role Phone Nas Cardenas MD Primary Care Provider Reason for Visit Reason Comments Pacemaker Check COurtesy Encounter Details Date Type Department Care Team Description 03/19/2017 Allied Health/Nurse [facility] Pac emaker Check Visit [facility] (COurtesy) [address] [facility] [address] [place] [phone] Social History Tobacco Use Types Packs/Day Years Used Date Never Smoker Alcohol Use Standard Drinks/Week Comments No 0 (1 standard drink = 0.6 oz pure alcoho l) Sex Assigned at Date Recorded Not on file documented as of this encounter Progress Notes Quang Montalvo, RN - 03/19/2017 4:30 PM CDT Colondee Essentio PPM Courtesy-No Charge Alert received for VT episode. EGM suggest PAT. Patient also had several NSVT episodes; EGMs also suggest PAT Lead measurements are stable. Will continue to monitor. YYangRN. documented in this encounter Plan of Treatment Upcoming Encounters Date Type Specialty Care Team Description 06/26/2022 Ancillary Procedure Cardiology Seng Canchola MD [address] [facility] [address] [place] [phone] (Wo rk) 08/16/2022 Ancillary Procedure Cardiology Timothy Smith MD [address] [place] [address] (Wo rk) 08/16/2022 Office Visit Cardiology Timothy Smith MD [address] [place] [address] (Wo rk) documented as of this encounter Visit Diagnoses Diagnosis Cardiac pacemaker in situ - Primary documented in this encounter Care Teams Shipyard Painter Relationship Specialty Start Date End Date Nas Cardenas MD PCP - General Family Practice 02/01/12 04/12/17 documented as of this encounter
--- OUTSIDE RECORDS SUMMARY | 2022-06-22 08:58 | XMS_ITS | Encounter Summary ---
:1940 Author Organization [place] Address [address] [place] [address] Care Team Providers Name Role Phone Nas Cardenas MD Primary Care Provider Reason for Referral Specialty Diagnoses / Procedures Referred By Contact Refer red To Contact Ankur Smith MD [address] [facility] [place] [address] Referral ID Status Reason Start Date Expiration Date Visits Requ ested Visits Authorized Scheduling Instructions ANTICOAGULATION CLINIC COLLABORATIVE PA ACTICE AGREEMENT The following represents a collaborative practice agreement among the physicians of the Clinic and staff of the Anticoagulat ion Clinic Service ([facility]) Physicians shall: 1. Refer patients requiring anticoagulat ion to a specialty service staffed by personnel of Pharmacy Services and super vised by Clinic physicians. 2. Respond to questions and referrals fr pharmacy staff regarding delinquent or difficult patients. 3. Inform the [facility] staff when a new patie nt is to be started on the service in a timely manner including the indication f or warfarin therapy and any variation from the protocol. Anticoagulation service staff shall: 1. Conduct an education program for each patient. 2. Assess each patient for their ability to comply with therapy and their understanding of anticoagulation therapy . 3. Order all doses and dose changes base d on a mutually agreed protocol. 4. Schedule patients for follow-up labor atory and consultation visits. 5. Assess each patient's INR and provide appropriate direction. 6. At each visit, assess each patient fo r his or her risk of adverse or sub-therapeutic effects including at [facility] the following: Has the patient experienced any bleeding since the last INR Has the patient had any bacterial or vir al infections since the last INR Have any medications been added or woods ed or stopped since the last INR Has the patient had any symptoms of thro mboemboli since the last INR Has the patient had any dietary changes or changes in eating habits since the last INR Has the patient missed any warfarin/coum carlitos doses since the last INR Has the patient had a fever since the la st INR Has the patient had unusual diarrhea sin ce the last INR 7. Prepare new prescriptions and authori ze refills for anticoagulants. 8. Serve as a resource to and answer que stions from patients and staff. 9. Identify delinquent patients and init iate appropriate steps to ensure adequate follow-up and monitoring. 10. Refer delinquent patients and other problem situations to a physician for direction. 11. Initiate vitamin K therapy when vanessa cated. Reason for Visit Reason Comments Heart Problem - Closed Specialty Diagnoses / Procedures Referred By Contact Refer red To Contact Diagnoses Sinoatrial node dysfunction (H) Tammy Montenegro PA-C [address] [employer] [address] [place] [id number] Referral ID Status Reason Start Date Expiration Date Visits Requ ested Visits Authorized [id number] Closed 12/04/2016 12/04/2017 1 1 Encounter Details Date Type Department Care Team Description 12/29/2016 Office Visit [facility] Buffy Montenegro PA-C [address] [place] [id number] Paroxysmal atrial fibrillation (H) (Prim arnie Dx); Heart Clinic Ankur Beauchamp MD [address] [place] [id number] Sinoatrial node dysfunction (H) [address] [facility] [address] [place] [phone] Social History Tobacco Use Types Packs/Day Years Used Date Never Smoker Alcohol Use Standard Drinks/Week Comments No 0 (1 standard drink = 0.6 oz pure alcoho l) Sex Assigned at Date Recorded Not on file documented as of this encounter Last Filed Vital Signs Vital Sign Reading Time Taken Comments Blood Pressure 104/66 12/29/2016 1:11 PM CDT Pulse 78 12/29/2016 1:11 PM CDT Temperature - - Respiratory Rate - - Oxygen Saturation - - Inhaled Oxygen Concentration - - Weight 140.2 kg (309 lb) 12/29/2016 1:11 PM CDT Height 180.3 cm (5' 11) 12/29/2016 1:11 PM CDT Body Mass Index 43.1 12/29/2016 1:11 PM CDT documented in this encounter Progress Notes Ankur Smith MD - 12/29/2016 1:56 PM CDT HISTORY OF PRESENT ILLNESS: I saw Mr. Villa for evaluation of atrial fibrillation with rapid ventricular rate. He is a 76-year-old white male with a history of coronary artery disease and previous CABG. His ejection fraction is normal. The patient had atrial flutter ablation in 2012. He later receiveda [employer] dual-chamber pacemaker for symptomatic sinus node dysfunction. Subsequent to thepacemaker implantation, he has been known to have paroxysmal atrial fibrillation. He has been on Eliquis for which he complains about the cost of co-pay. The recent pacemaker interrogation showed that he had episodes of rapid ventricular rate up to 170 beats per minute during atrial fibrillation. On the other hand, the patient has no apparent symptoms. The Holter monitoring in March of last year did not show atrial fibrillation with rapid ventricular rate. PHYSICAL EXAMINATION: VITAL SIGNS: On examination, blood pressure was 104/66, heart rate 78 beats per minute, body weight 309 pounds. CHEST: The pacemaker site looked well. LUNGS: Clear. CARDIAC: Rhythm was regular, and the heart sounds were normal without murmur. ABDOMEN: Showed severe obesity. EXTREMITIES: There was no pedal edema. ASSESSMENT AND RECOMMENDATIONS: Mr. Villa is doing well symptomatically. From the pacemaker interrogation, I am not sure if he has occasional rapid ventricular rate or persistent rapid ventricular rate. Since the patient is asymptomatic, the only concern is whether he is at risk of tachycardia-induced cardiomyopathy. For further evaluation, I have ordered a repeat Holter for 24 hours, and I will follow the results when they are available. His blood pressure is relatively low, and there is not much room to change the rate control medications. However, if the Holter does show rapid ventricular rate, we may discontinue losartan in order to increase the dose of Toprol-XL. If the ventricular rate is only occasionally fast then I would recommend no intervention. Per patient request, the anticoagulation medication has been changed from Eliquis to warfarin. He prefers to have the INR monitored in your office. cc: Nas Cardenas MD [facility] [address] [place] [address] ANKUR SMITH MD MT: MANDIE Name: RADHA VILLA MRN: [id number] Account: [id number] : 1940 Service Date: 12/29/2016 Document: [id number] Ankur Smith MD - 12/29/2016 1:15 PM CDT HPI and Plan: See dictation Orders Placed This Encounter Procedures ??? Holter Monitor 24 hour - Adult Orders Placed This Encounter Medications ??? metoprolol (TOPROL-XL) 50 MG 24 hr tablet Sig: Take 50 mg by mouth daily ??? nitroglycerin (NITROSTAT) 0.4 MG sublingual tablet Sig: Place 0.4 mg under the tongue every 5 minutes as needed for chest pain For chest pain place 1 tablet under the tongue every 5 minutes for 3 doses. If symptoms persist 5 minutes after 1st dose call 911. ??? warfarin (COUMADIN) 5 MG tablet Sig: Take 1 tablet (5 mg) by mouth daily Dispense: 90 tablet Refill: 3 Medications Discontinued During This Encounter Medication Reason ??? metoprolol (TOPROL-XL) 50 MG 24 hr tablet Medication Reconciliation Clean Up ??? NITROGLYCERIN SL Medication Reconciliation Clean Up ??? apixaban ANTICOAGULANT (ELIQUIS) 5 MG tablet Encounter Diagnoses Name Primary? Sinoatrial node dysfunction (H) ??? Paroxysmal atrial fibrillation (H) Yes CURRENT MEDICATIONS: Current Outpatient Prescriptions Medication Sig Dispense Refill ??? metoprolol (TOPROL-XL) 50 MG 24 hr tablet Take 50 mg by mouth daily ??? nitroglycerin (NITROSTAT) 0.[address] 0.4 mg under the tongue every 5 minutesas needed for chest pain For chest pain place 1 tablet under the tongue every 5 minutes for 3 doses.If symptoms persist 5 minutes after 1st dose call 911. ??? warfarin (COUMADIN) 5 MG tablet Take 1 tablet (5 mg) by mouth daily 90 tablet 3 ??? losartan (COZAAR) 25 MG tablet Take 25 mg by mouth ??? metFORMIN (GLUCOPHAGE) 500 MG tablet Take 2 tablets (1,000 mg) by mouth 2 times daily (with meals) 60 tablet ??? acetaminophen-codeine (TYLENOL #3) 300-30 MG per tablet Take 1-2 tablets by mouth every 4 hours as needed for moderate pain 10 tablet 0 ??? GLIPIZIDE PO Take 5 mg by mouth 2 times daily (before meals) ??? celecoxib (CELEBREX) 200 MG capsule Take 200 mg by mouth 2 times daily ??? fenofibrate 160 MG tablet Take 160 mg by mouth daily. ??? ACYCLOVIR 400 MG OR TABS 1 TABLET 3 TIMES DAILY-as need for Cold sores 30 6 ??? PANTOPRAZOLE SODIUM PO Take 40 mg [...] Smoking status: Never Smoker ??? Smokeless tobacco: None ??? Alcohol use No ??? Drug use: [...] diabetes Physical Exam: Vitals: BP 104/66 Pulse 78 Ht 1.803 m (5' 11) Wt (!) 140.2 kg (309 lb) BMI 43.1 kg/m2 Constitutional: cooperative, alert and oriented, well developed, well nourished, in no acute distress Skin: warm and dry to the touch, no apparent skin lesions or masses noted Head: normocephalic, no masses or lesions Eyes: wear eye glasses ENT: no pallor or cyanosis, dentition good Neck: JVP normal;no carotid bruit Chest: normal breath sounds, clear to auscultation, normal A-P diameter, normal symmetry, normal respiratory excursion, no use of accessory muscles pacemaker incision in the left infraclavicular area was well-healed Cardiac: regular rhythm, normal S1/S2, no S3 or S4, apical impulse not displaced, no murmurs, gallops or rubs Abdomen: abdomen soft obese Vascular: pulses full and equal Extremities and Back: no deformities, clubbing, cyanosis, erythema observed bilateral LE edema;trace Neurological: affect appropriate, oriented to time, person and place HERMELINDA Montenegro PA-C [facility] [address] [place] [address] documented in this encounter Plan of Treatment Upcoming Encounters Date Type Specialty Care Team Description 06/26/2022 Ancillary Procedure Cardiology Seng Canchola MD [address] [place] [id number] (Wo rk) 08/16/2022 Ancillary Procedure Cardiology Ankur Smith MD [address] [place] [id number] (Wo rk) 08/16/2022 Office Visit Cardiology Ankur Smith MD [address] [place] [id number] (Wo rk) Scheduled Referrals Name Type Priority Associated Diagnoses Order S chedule INR/ANTICOAG REFERRAL Referral Routine Paroxysmal atrial E xpected: 12/29/2016, fibrillation (H) Expires: documented as of this encounter Results Holter Monitor 24 hour - Adult (01/08/2017) Narrative [facility] - 01/08/[address] [phone] 01/04/2017 Patient: ??Radha Bullard [facility] Chart: [id number] : ??1940 Age: ??76 year old Sex: ??male Procedure: ??Holter Monitor Placed: plea se see scanned document for result once interpretation is completed. Cut Off Machine Operator performing hook-up: ??Sheri Yuen Ankur Smith MD CV CARDIAC SERVICES ORDERABL ES Performing Organization Address City/State/ZIP Code Phon e Number [facility] documented in this encounter Visit Diagnoses Diagnosis Paroxysmal atrial fibrillation (H) - Ria jing Atrial fibrillation Sinoatrial node dysfunction (H) Sinoatrial node dysfunction Paroxysmal atrial fibrillation (H) Atrial fibrillation documented in this encounter Care Teams Line Leader Relationship Specialty Start Date End Date Nas Cardenas MD PCP - General Family Practice 02/01/12 04/12/17 documented as of this encounter
--- OUTSIDE RECORDS SUMMARY | 2022-06-22 08:58 | XMS_ITS | Encounter Summary ---
:1940 Author Organization [facility] Address [address] [place] [address] Care Team Providers Name Role Phone Graham Licona MD Primary Care Provider Reason for Visit Reason Onset Date Comments Refill Request 05/07/2017 Encounter Details Date Type Department Care Team Description 05/07/2017 Refill [facility] Selena Reynoso RN Refill Request [facility] [address] [facility] [address] [place] [phone] Social History Tobacco Use Types Packs/Day Years [...] [address] [place] [id number] (Wo rk) 08/16/2022 Ancillary Procedure Cardiology Timothy Smith MD [address] [place] [id number] (Wo rk) 08/16/2022 Office Visit Cardiology Timothy Smith MD [address] [place] [phone] (Wo rk) documented as of this encounter Visit Diagnoses Diagnosis PAF (paroxysmal atrial fibrillation) (H) - Primary Atrial fibrillation documented in this encounter Care Teams Dial Buffer Relationship Specialty Start Date End Date Graham Licona MD PCP - General Family Practice 04/13/17 01/15/18 [facility] [address] [place] [address] documented as of this encounter
--- OUTSIDE RECORDS SUMMARY | 2022-06-22 08:58 | XMS_ITS | Encounter Summary ---
:1940 Author Organization [facility] Address [address] [place] [address] Care Team Providers Name Role Phone Nas Cardenas MD Primary Care Provider Reason for Visit Reason Comments Pacemaker Check PPM Latitude Encounter Details Date Type Department Care Team Description 01/03/2017 Allied Health/Nurse [facility] Pac emaker Check (PPM Visit Heart Clinic [facility]) [address] [place] [address] [address] [place] [phone] Social History Tobacco Use Types Packs/Day Years Used Date Never Smoker Alcohol Use Standard Drinks/Week Comments No 0 (1 standard drink = 0.6 oz pure alcoho l) Sex Assigned at Date Recorded Not on file documented as of this encounter Progress Notes Rachel Freedman - 01/03/2017 11:45 AM CDT [employer] (D) Remote PPM Device Check AP: 2 % HAND CANDLE MOLDER: 14 % Mode: DDDR Presenting Rhythm: Aflutter/HAND CANDLE MOLDER Heart Rate: Adequate rates per histogram Sensing: Stable Pacing Threshold: Stable Impedance: Stable Battery Status: 13.5 years Atrial Arrhythmia: Patient remains in mode switch 100% of the time. Ventricular rates controlled. Taking Eliquis. Ventricular Arrhythmia: Pt continues to have brief ventricular high rate episodes. EGMs available show Aflutter with RVR. Reviewed findings with SIENNA Sawyer. Care Plan: F/u annual threshold in 3 months. Gave patient results over the phone. KAE Mahoney documented in this encounter Plan of Treatment Upcoming Encounters Date Type Specialty Care Team Description 06/26/2022 Ancillary Procedure Cardiology Seng Canchola MD [address] [place] [phone] (Wo rk) 08/16/2022 Ancillary Procedure Cardiology Timothy Smith MD [address] [place], [place] [phone] (Wo rk) 08/16/2022 Office Visit Cardiology Timothy Smith MD [address] [place] [id number] (Wo rk) documented as of this encounter Procedures Procedure Name Priority Date/Time Associated Diagnosis Comme [facility] Z PM DEVICE Routine 01/03/2017 9:24 AM Cardiac pacemaker in INTERROGATE REMOTE, UP CDT situ TO 90 DAYS, LEAD/LEADLESS HC INTERR DEVICE EVAL Routine 01/03/2017 Cardiac pacemaker i n REMOTE, PM/LDLS PM/ICD, situ UP TO 90 DAYS documented in this encounter Results INTERROGATION DEVICE EVAL REMOTE, PACER/ICD (00121) (01/03/2017) Narrative This result has an attachment that is no t available. Timothy Smith MD PROCEDURES documented in this encounter Visit Diagnoses Diagnosis Cardiac pacemaker in situ - Primary documented in this encounter Care Teams Communication Professor Relationship Specialty Start Date End Date Nas Cardenas MD PCP - General Family Practice 02/01/12 04/12/17 documented as of this encounter
--- OUTSIDE RECORDS SUMMARY | 2022-06-22 08:58 | XMS_ITS | Encounter Summary ---
:1940 Author Organization [place] [facility] Address [address] [place] [address] Care Team Providers Name Role Phone Graham Licona MD Primary Care Provider Reason for Visit Reason Onset Date Comments Patient Request 05/08/2017 echo Encounter Details Date Type Department Care Team Description 05/08/2017 Telephone [facility] Heart Lacy Washington P atient Request (echo) Clinic [place] [address] [facility] [address] [place] [phone] Social History Tobacco Use Types Packs/Day Years Used Date Never Smoker Alcohol Use Standard Drinks/Week Comments No 0 (1 standard drink = 0.6 oz pure alcoho l) Sex Assigned at Date Recorded Not on file documented as of this encounter Miscellaneous Notes Telephone Encounter - Lacy Washington RN - 05/08/2017 12:03 PM CDT Returned call to pt who answered this call, Discussed that having the echo at [place] is fine, but would request that echo results be sent to clinic. Pt will have this done. Pt told that if Dr Licona feels that pt needs to see Cardiology following echo to also call. Pt then stated that his Eliquisis costing $100/mo and he had called [facility] for help, but is still waiting. Pt has been on Coumadin in the past, but was changed d/t intolerance to Eliquis. A Tier exception has been sent to PA team to see if this cost can be reduced. JNelsonRN Telephone Encounter - Lacy Washington RN - 05/08/2017 11:27 AM CDT Pt called and LM stating that he had seen Dr Licona that told pt that he has water on his heart andwas started on diuretic pills and ordered to have an echo in [place]. Pt wondering if we would want it done up here. Attempted to call pt back but phone on rang and did not go to voice message, willattempt to call later. JNelsonRN documented in this encounter Plan of Treatment Upcoming Encounters Date Type Specialty Care Team Description 06/26/2022 Ancillary Procedure Cardiology Seng Canchola MD [address] [place] [address] (Wo rk) 08/16/2022 Ancillary Procedure Cardiology Timothy Smith MD [address] [place] [address] (Wo rk) 08/16/2022 Office Visit Cardiology Timothy Smith MD [address] [place] [id number] (Wo rk) documented as of this encounter Visit Diagnoses Not on filedocumented in this encounter Care Teams Surface Mount Technology Operator Relationship Specialty Start Date End Date Graham Licona MD PCP - General Family Practice 04/13/17 01/15/18 [facility] [address] [place] [address] documented as of this encounter
--- OUTSIDE RECORDS SUMMARY | 2022-06-22 08:58 | XMS_ITS | Encounter Summary ---
:1940 Author Organization [facility] Address [address] [place] [address] Care Team Providers Name Role Phone Nas Cardenas MD Primary Care Provider Reason for Visit (Routine) - Closed Specialty Diagnoses / Procedures Referred By Contact Refer red To Contact Cardiology Diagnoses Per Sarah 24 hour holter, AFIB Zzrh Cardiac Test [facility] Procedures [address] [place], [place] [phone] Phone: Fax: Referral ID Status Reason Start Date Expiration Date Visits Requ ested Visits Authorized [id number] Closed 01/03/2017 01/03/2018 1 1 Encounter Details Date Type Department Care Team Description 01/04/2017 Hospital Encounter [facility] Timothy Smith MD [facility] [address] fibrillation (H) [address] [place] [address] [place], [place] [phone] (Work) [phone] Social History Tobacco Use Types Packs/Day Years [...] Take 160 mg by mouth 0 daily. acetaminophen-codeine Take 1-2 tablets by 10 tablet 0 02/0301/01/2019 (TYLENOL #3) 300-30 MG mouth every 4 hours per tabletIndications: as needed for Sinoatrial node moderate pain dysfunction (H) celecoxib (CELEBREX) 200 Take 200 mg by mouth 0 06/30/2021 MG capsule 2 times daily GLIPIZIDE PO Take 5 mg by mouth 2 0 times daily (before meals) losartan (COZAAR) 25 MG Take 25 mg by mouth 0 10/201501/16/2018 tablet metFORMIN (GLUCOPHAGE) Take 2 tablets 60 tablet 0 6 06/30/2021 500 MG tabletIndications: (1,000 mg) by mouth Type 2 diabetes mellitus 2 times daily (with with complication (H) meals) metoprolol (TOPROL-XL) 50 Take 50 mg by mouth 0 05/07/2017 MG 24 hr tablet daily nitroglycerin (NITROSTAT) Place 0.4 mg under 0 [...] 0 06/30/2021 80 MG tablet At Bedtime warfarin (COUMADIN) 5 MG Take 1 tablet (5 mg) 90 tablet 3 0 12/29/2016 05/04/2017 tabletIndications: by mouth daily Paroxysmal atrial fibrillation (H) documented as of this encounter Progress Notes Sheri Yuen - 01/04/2017 10:08 AM CDT 24 hour holter set up. documented in this encounter Plan of Treatment Upcoming Encounters Date Type Specialty Care Team Description 06/26/2022 Ancillary Procedure Cardiology Seng Canchola MD [address] [facility] [address] [place] [id number] (Wo rk) 08/16/2022 Ancillary Procedure Cardiology Timothy Smith MD [address] [place] [id number] (Wo rk) 08/16/2022 Office Visit Cardiology Timothy Smith MD [address] [place] [id number] (Wo rk) documented as of this encounter Procedures Procedure Name Priority Date/Time Associated Diagnosis Comme nts HOLTER MONITOR 24 Routine 01/08/2017 Paroxysmal atrial Resul ts for this HOUR - ADULT fibrillation (H) procedure a re in the results section . documented in this encounter Results Holter Monitor 24 hour - Adult (01/08/2017) Narrative [facility] - 01/08/2017 [facility] [address] [place] [phone] 01/04/2017 Patient: ??Haris Bullard [facility] Chart: [id number] : ??1940 Age: ??76 year old Sex: ??male Procedure: ??Holter Monitor Placed: plea se see scanned document for result once interpretation is completed. Field Superintendent performing hook-up: ??Sheri Yuen Timothy Smith MD CV CARDIAC SERVICES ORDERABL ES Performing Organization Address City/State/ZIP Code Phon e Number [facility] documented in this encounter Visit Diagnoses Diagnosis Paroxysmal atrial fibrillation (H) Atrial fibrillation documented in this encounter Care Teams Stick Inserter Relationship Specialty Start Date End Date Nas Cardenas MD PCP - General Family Practice 02/01/12 04/12/17 documented as of this encounter
--- OUTSIDE RECORDS SUMMARY | 2022-06-22 08:58 | XMS_ITS | Encounter Summary ---
:1940 Author Organization [place] Address [address] [place] [address] Care Team Providers Name Role Phone Nas Cardenas MD Primary Care Provider Reason for Visit (Routine) - Closed Specialty Diagnoses / Procedures Referred By Contact Refer red To Contact Cardiology Diagnoses Per Fabiola Woo Cardiac Test [facility] Procedures HOLTER MONITOR [address] [place], [place] [address] Phone: Fax: Referral ID Status Reason Start Date Expiration Date Visits Requ ested Visits Authorized [id number] Closed 03/29/2016 03/29/2017 1 1 Encounter Details Date Type Department Care Team Description 04/13/2016 Hospital Encounter [facility] Timothy Smith MD SSS (sick sinus syndrome) (H); [facility] [address] [place] [address] Typical atrial flutter (H) [address] [facility] [address] [place] [address] [place], [place] [phone] (Work) [phone] Social History Tobacco Use Types Packs/Day Years [...] 0 12/2020 2 times daily (before meals) lisinopril Take 1 tablet (20 90 tablet 5 12/20/2015 016 (PRINIVIL,ZESTRIL) 20 MG mg) by mouth daily tabletIndications: Benign essential hypertension metFORMIN (GLUCOPHAGE) Take 2 tablets 60 tablet 0 6 06/30/2021 500 MG tabletIndications: (1,000 mg) by mouth Type 2 diabetes mellitus 2 times daily (with with complication (H) meals) metoprolol (TOPROL-XL) 50 Take 1 tablet (50 180 tablet 3 12/29/2016 MG 24 hr mg) by mouth 2 tabletIndications: times daily Take 50 Typical atrial flutter mg twice daily (pt (H) prefers to split dosing) 100 mg daily [address]GLYCER[address] SL Place 0.4 mg under 0 12/29/2016 the tongue every 5 minutes as needed PANTOPRAZOLE SODIUM PO Take 40 mg by mouth 0 07/07/2020 every morning (before breakfast). pravastatin (PRAVACHOL) Take 80 mg by mouth 0 06/30/2021 80 MG tablet At Bedtime warfarin (COUMADIN) 5 MG Take 1 tablet (5 30 tablet 0 03/2905/15/2016 tabletIndications: mg) by mouth daily Typical atrial flutter (H) documented as of this encounter Progress Notes Sheri Yuen - 04/13/2016 12:32 PM CDT 24 Hour holter monitor set up. documented in this encounter Plan of Treatment Upcoming Encounters Date Type Specialty Care Team Description 06/26/2022 Ancillary Procedure Cardiology Seng Canchola MD [address] [place] [id number] (Wo rk) 08/16/2022 Ancillary Procedure Cardiology Timothy Smith MD [address] [place] [address] (Wo rk) 08/16/2022 Office Visit Cardiology Timothy Smith MD [address] [place] [address] (Wo rk) documented as of this encounter Procedures Procedure Name Priority Date/Time Associated Diagnosis Comme nts HOLTER MONITOR 24 HOUR Routine 04/18/2016 SSS (sick sinus Re sults for this - ADULT syndrome) (H) procedure are in the Typical atrial flutter resul ts section. (H) documented in this encounter Results Holter Monitor 24 hour - Adult (04/18/2016) Narrative RADIANT - 04/18/2016 [facility] [id number] [place] [phone] 04/13/2016 Patient: ??Haris Covington Chart: [id number] : ??1940 Age: ??75 year old Sex: ??male Procedure: ??Holter Monitor Placed: plea se see scanned document for result once interpretation is comple star. Parquetry Floor Layer performing hook-up: ??Sheri Yuen Timothy Smith MD CV CARDIAC SERVICES ORDERABL ES Performing Organization Address City/State/ZIP Code Phon e Number RADIANT documented in this encounter Visit Diagnoses Diagnosis SSS (sick sinus syndrome) (H) Sinoatrial node dysfunction Typical atrial flutter (H) Atrial flutter documented in this encounter Care Teams Warpman Relationship Specialty Start Date End Date Nas Cardenas MD PCP - General Family Practice 02/01/12 04/12/17 documented as of this encounter
--- OUTSIDE RECORDS SUMMARY | 2022-06-22 08:58 | XMS_ITS | Encounter Summary ---
:1940 Author Organization [place] Address [address] [place] [address] Care Team Providers Name Role Phone Graham Licona MD Primary Care Provider Reason for Visit Reason Onset Date Comments Refill Request 05/23/2017 pt was granted tier acception for eliquis Encounter Details Date Type Department Care Team Description 05/23/2017 Refill [facility] Heart Zarina Smith MD Refill Request (pt was [facility] [address] granted tier acception [address] [phone] for eliquis) [address] [place] [address] [place] [phone] Social History Tobacco Use Types Packs/Day Years Used Date Never Smoker Alcohol Use Standard Drinks/Week Comments No 0 (1 standard drink = 0.6 oz pure alcoho l) Sex Assigned at Date Recorded Not on file documented as of this encounter Plan of Treatment Upcoming Encounters Date Type Specialty Care Team Description 06/26/2022 Ancillary Procedure Cardiology Seng Canchola MD [address] [place] [id number] (Wo rk) 08/16/2022 Ancillary Procedure Cardiology Timothy Smith MD [address] [place] [id number] (Wo rk) 08/16/2022 Office Visit Cardiology Timothy Smith MD [address] [place] [id number] (Wo rk) documented as of this encounter Visit Diagnoses Diagnosis Paroxysmal atrial fibrillation (H) Atrial fibrillation documented in this encounter Care Teams Bracelet And Brooch Maker Relationship Specialty Start Date End Date Graham Licona MD PCP - General Family Practice 04/13/17 01/15/18 [facility] [address] [place] [address] documented as of this encounter
--- OUTSIDE RECORDS SUMMARY | 2022-06-22 08:58 | XMS_ITS | Encounter Summary ---
:1940 Author Organization [place] Address [address] [place] [address] Care Team Providers Name Role Phone Nas Cardenas MD Primary Care Provider Reason for Visit Reason Comments Pacemaker Check Encounter Details Date Type Department Care Team Description 02/14/2016 Allied Health/Nurse [facility] Heart Pacemaker Check Visit Clinic [address] [place] [phone] Social History Tobacco Use Types Packs/Day Years Used Date Never Smoker Alcohol Use Standard Drinks/Week Comments Yes 0 (1 standard drink = 0.6 oz pure alcoho l) Sex Assigned at Date Recorded Not on file documented as of this encounter Progress Notes Mary Norris, RN, RN - 02/14/2016 11:33 AM CDT [place] [employer] 7-10 day Post Pacemaker Device Check AP: 14 % COMMUNICATIONS BILLING ANALYST: 8 % Mode: DDDR Underlying Rhythm: SR with frequent PACS Heart Rate: Slightly elevated due to frequent PACs. Rates mostly 60 - 110. No c/o. Sensing: stable Pacing Threshold: atrial threshold sl elevated Impedence: stable Battery Status: 15 years Incision: lateral edge not completely approximated. Steri strip applied. Atrial Arrhythmia: Frequent PACS. 1 brief mode switch lasting 2 sec for atrial flutter Ventricular Arrhythmia: none Setting Change: none Care Plan: f/u 6 weeks threshold. documented in this encounter Plan of Treatment Upcoming Encounters Date Type Specialty Care Team Description 06/26/2022 Ancillary Procedure Cardiology Seng Canchola MD [address] [place], [place] [phone] (Wo rk) 08/16/2022 Ancillary Procedure Cardiology Timothy Smith MD [address] [place], [place] [address] (Wo rk) 08/16/2022 Office Visit Cardiology Timothy Smith MD [address] [place] [phone] (Wo rk) documented as of this encounter Procedures Procedure Name Priority Date/Time Associated Diagnosis Comme nts PM DEVICE PROGRAMMING EVAL, Routine 02/14/2016 Cardiac pa cemaker in situ DUAL LEAD PACER documented in this encounter Results PM DEVICE PROGRAMMING EVAL, DUAL LEAD PACER ([id number]) (02/14/2016) Narrative This result has an attachment that is no t available. Steven Canchola MD PROCEDURES documented in this encounter Visit Diagnoses Diagnosis Cardiac pacemaker in situ - Primary documented in this encounter Care Teams Sales Superintendent Relationship Specialty Start Date End Date Nas Cardenas MD PCP - General Family Practice 02/01/12 04/12/17 documented as of this encounter
--- OUTSIDE RECORDS SUMMARY | 2022-06-22 08:58 | XMS_ITS | Encounter Summary ---
:1940 Author Organization [place] Address [address] [place] [address] Care Team Providers Name Role Phone Nas Cardenas MD Primary Care Provider Reason for Referral - Closed Specialty Diagnoses / Procedures Referred By Contact Refer red To Contact Diagnoses SSS (sick sinus syndrome) (H) Typical atrial flutter (H) [facility] [address] [facility] [address] [place] [phone] Referral ID Status Reason Start Date Expiration Date Visits Requ ested Visits Authorized [id number] Closed 04/11/2016 04/11/2017 1 1 Reason for Visit Reason Comments Pacemaker Check 6 weeks S/P PPM implant Encounter Details Date Type Department Care Team Description 03/28/2016 Allied Health/Nurse [facility] Pac emaker Check (6 Visit Heart Clinic [place] weeks S/P PPM implant) [address] [facility] [address] [place] [phone] Social History Tobacco Use Types Packs/Day Years Used Date Never Smoker Alcohol Use Standard Drinks/Week Comments No 0 (1 standard drink = 0.6 oz pure alcoho l) Sex Assigned at Date Recorded Not on file documented as of this encounter Progress Notes Fabiola Hurtado, RN, RN - 03/28/2016 12:56 PM CDT [employer] (D) Pacemaker Device Check 6 wks S/P implant AP:2 % TELECOMMUNICATIONS REPAIRER: 10 % Mode: DDDR 60/130 Underlying Rhythm: A flutter at time of interrogation (mostly 2:1) with v- rate [id number] BPM Heart Rate: Evidence on histogram of some RVR with a flutter with rates up to 160 bpm2 Sensing: WNL Pacing Threshold: unable to obtain atrial threshold d/t AFl; RV is WNL Impedance: WNL Battery Status: Full Atrial Arrhythmia: frequent mode switching comprising 38% ( some undersensing when flutter waves fall into refractory); 77 episodes logged as SVT Ventricular Arrhythmia: 47 NSVT with EGM showing short bursts of RVR with A flutter Setting Change: RV output lowered per protocol; mode switch atrial rate decreased from 170 to 150 bpm to make more sensitive to flutter waves. Care Plan: Reviewed findings with Dr Smith. Patient is instructed to stop aspirin. Start Eliquis 5 mg BID; increased metoprolol from 50 mg to 100 mg. He will obtain a 24 hour holter in 2 weeks and follow up with Dr Smith in 3-4 weeks. Patient is ASYMPTOMATIC at this time with A flutter. Orders placed and ptwas walked to scheduling. Samples of Eliquis given to pt with new RX escripted to mail order pharmacy. Pt will call them to preview cost and assure medication is at a reasonable huntley for him. If not he will call us back. SIENNA Cunningham I have reviewed and interpreted the device interrogation, settings, programming and summary. The device is functioning within normal device parameters. I agree with the current findings, assessment andplan. documented in this encounter Plan of Treatment Upcoming Encounters Date Type Specialty Care Team Description 06/26/2022 Ancillary Procedure Cardiology Seng Canchola MD [address] [place] [id number] (Wo rk) 08/16/2022 Ancillary Procedure Cardiology Timothy Smith MD [address] [place] [phone] (Wo rk) 08/16/2022 Office Visit Cardiology Timothy Smith MD [address] [place] [address] (Wo rk) Scheduled Referrals Name Type Priority Associated Diagnoses Order S chedule Follow-Up with Referral Routine SSS (sick sinus Expected: Stock Shaper syndrome) (H ) 04/11/2016 Typical atrial (Approximate) , flutter (H) Expires: 03/28/2017 documented as of this encounter Procedures Procedure Name Priority Date/Time Associated Diagnosis Comme nts HC PM DEVICE PROGRAMMING Routine 03/28/2016 Cardiac pacemaker in situ EVAL, DUAL LEAD PACER SSS (sick sinus syn drome) (H) documented in this encounter Results Holter Monitor 24 hour - Adult (04/18/2016) Narrative [facility] - 04/18/2016 [facility] [address] [facility] [address] [facility] [phone] 04/13/2016 Patient: ??Haris Covington Chart: [id number] : ??1940 Age: ??75 year old Sex: ??male Procedure: ??Holter Monitor Placed: plea se see scanned document for result once interpretation is comple star. Book Packer performing hook-up: ??Sheri Yuen Timothy Smith MD CV CARDIAC SERVICES ORDERABL ES Performing Organization Address City/State/ZIP Code Phon e Number RADIANT PM DEVICE PROGRAMMING EVAL, DUAL LEAD PACER ([id number]) (03/28/2016) Narrative This result has an attachment that is no t available. Steven Canchola MD PROCEDURES documented in this encounter Visit Diagnoses Diagnosis Cardiac pacemaker in situ - Primary SSS (sick sinus syndrome) (H) Sinoatrial node dysfunction Typical atrial flutter (H) Atrial flutter SSS (sick sinus syndrome) (H) Sinoatrial node dysfunction Typical atrial flutter (H) Atrial flutter documented in this encounter Care Teams Diesel Service Apprentice Relationship Specialty Start Date End Date Nas Cardenas MD PCP - General Family Practice 02/01/12 04/12/17 documented as of this encounter
--- OUTSIDE RECORDS SUMMARY | 2022-06-22 08:58 | XMS_ITS | Encounter Summary ---
:1940 Author Organization [place] Address [address] [place] [address] Care Team Providers Name Role Phone Graham Licona MD Primary Care Provider Reason for Visit Reason Comments Pacemaker Check Alert for VHR Encounter Details Date Type Department Care Team Description 04/24/2017 Documentation Only [facility] [place] Bui RN, RN (Alert for VHR) [address] [facility] [address] [place] [address] [phone] [address] [place] [address] Social History Tobacco Use Types Packs/Day Years Used Date Never Smoker Alcohol Use Standard Drinks/Week Comments No 0 (1 standard drink = 0.6 oz pure alcoho l) Sex Assigned at Date Recorded Not on file documented as of this encounter Progress Notes Fabiola Hurtado RN, RN - 04/24/2017 7:44 AM CDT [place] [employer] PPM ALERT Alert for VHR, (4 NSVT and 1 longer episodes logged at VT). All EGM's showed irregular VS events, pt now in permanent AF. Overall heart rate histogram shows stable rates. The bursts of RVR all lasted < 1 minute in duration. Will continue to monitor for longer episodes. SIENNA Cowart documented in this encounter Plan of Treatment Upcoming Encounters Date Type Specialty Care Team Description 06/26/2022 Ancillary Procedure Cardiology Seng Canchola MD [address] [place] [address] (Wo rk) 08/16/2022 Ancillary Procedure Cardiology Timothy Smith MD [address] [place] [id number] (Wo rk) 08/16/2022 Office Visit Cardiology Timothy Smith MD [address] [place], [place] [phone] (Wo rk) documented as of this encounter Visit Diagnoses Not on filedocumented in this encounter Care Teams Tiger Machine Operator Relationship Specialty Start Date End Date Graham Licona MD PCP - General Family Practice 04/13/17 01/15/18 [facility] [address] [place] [address] documented as of this encounter
--- OUTSIDE RECORDS SUMMARY | 2022-06-22 08:58 | XMS_ITS | Encounter Summary ---
:1940 Author Organization [place] Address [address] [place] [address] Care Team Providers Name Role Phone Nas Cardenas MD Primary Care Provider Reason for Visit Reason Comments Pacemaker Check PPM Latitude NXT Encounter Details Date Type Department Care Team Description 06/28/2016 Allied Health/Nurse [facility] Pac emaker Check (PPM Visit Heart Clinic [facility] Latitude NXT) [address] [place] [address] [address] [place] [phone] Social History Tobacco Use Types Packs/Day Years Used Date Never Smoker Alcohol Use Standard Drinks/Week Comments No 0 (1 standard drink = 0.6 oz pure alcoho l) Sex Assigned at Date Recorded Not on file documented as of this encounter Progress Notes Sary Riojas - 06/28/2016 9:00 AM CDT 90 day Latitude NXT Remote PPM Device Check AP: 2% STORAGE CENTER MANAGER: 14% Mode: DDDR Underlying Rhythm: Aflutter with VS Heart Rate: adequate heart rates per histogram Sensing: stable Pacing Threshold: stable Impedance: stable Battery Status: 14 years Atrial Arrhythmia: 1013 mode switch episodes comprising 100% of the time. Taking Eliquis Ventricular Arrhythmia: 60 vent high rates. EGMs available show Aflutter with RVR. Rates 140 - 170bpm. Reviewed findings with Supa RN Care Plan: F/U Latitude NXT q 3 months. No answer, left voice message with results and next transmission date. Asked pt to call me back if experiencing any symptoms with faster rates. Darius CVT documented in this encounter Plan of Treatment Upcoming Encounters Date Type Specialty Care Team Description 06/26/2022 Ancillary Procedure Cardiology Seng Canchola MD [address] [place] [address] (Wo rk) 08/16/2022 Ancillary Procedure Cardiology Timothy Smith MD [address] [place] [address] (Wo rk) 08/16/2022 Office Visit Cardiology Timothy Smith MD [address] [place] [phone] (Wo rk) documented as of this encounter Procedures Procedure Name Priority Date/Time Associated Diagnosis Comme [facility] PM DEVICE Routine 06/28/2016 9:13 AM Cardiac pacemaker in INTERROGATE REMOTE, UP CDT situ TO 90 DAYS, LEAD/LEADLESS HC INTERR DEVICE EVAL Routine 06/28/2016 Cardiac pacemaker i n REMOTE, PM/LDLS PM/ICD, situ UP TO 90 DAYS documented in this encounter Results INTERROGATION DEVICE EVAL REMOTE, PACER/ICD (25988) (06/28/2016) Narrative This result has an attachment that is no t available. Basil Guadalupe MD PROCEDURES documented in this encounter Visit Diagnoses Diagnosis Cardiac pacemaker in situ - Primary documented in this encounter Care Teams Grain Inspector Relationship Specialty Start Date End Date Nas Cardenas MD PCP - General Family Practice 02/01/12 04/12/17 documented as of this encounter
--- OUTSIDE RECORDS SUMMARY | 2022-06-22 08:58 | XMS_ITS | Encounter Summary ---
:1940 Author Organization [place] Address [address] [place] [address] Care Team Providers Name Role Phone Nas Cardenas MD Primary Care Provider Reason for Visit Reason Comments Results Encounter Details Date Type Department Care Team Description 04/24/[address] [facility] [place] [place] , Results Clinic [place] [id number] [facility] [address] [place] [phone] Social History Tobacco Use Types Packs/Day Years Used Date Never Smoker Alcohol Use Standard Drinks/Week Comments No 0 (1 standard drink = 0.6 oz pure alcoho l) Sex Assigned at Date Recorded Not on file documented as of this encounter Progress Notes Blair Montalvo, RN - 04/24/2016 3:47 PM CDT PA request called in to [phone]. YYangRN Blair Montalvo, RN - 04/24/2016 1:25 PM CDT Holter results reviewed with patient. Latitude monitor blinking light discussed with patient. Patient is scheduled to see Dr. Smith 05/15. Patient had questions about AF Ablation, instructed patient to have that discussion with Dr. Smith. Patient does not want to go on coumadin and can not afford eliquis. Patient is going to pepper picker more samples of Eliquis today and will discuss with Dr. Smith about AF Ablation. Will initiate a PA for Eliquis. YJagdeepgRN Catherine Aranda LPN - 04/24/2016 11:03 AM CDT Pt calling EP for holter results, also has a pacemaker question, his message said blinking orange light on my machine-message to ROSIO-yvette cummins documented in this encounter Miscellaneous Notes Addendum Note - Blair Montalvo, RN - 04/24/2016 3:47 PM CDT Addended by: BLAIR MONTALVO on: 04/24/2016 03:47 PM Modules accepted: Orders documented in this encounter Plan of Treatment Upcoming Encounters Date Type Specialty Care Team Description 06/26/2022 Ancillary Procedure Cardiology Seng Canchola MD [address] [place] [address] (Wo rk) 08/16/2022 Ancillary Procedure Cardiology Timothy Smith MD [address] [place] [address] (Wo rk) 08/16/2022 Office Visit Cardiology Timothy Smith MD [address] [place] [address] (Wo rk) documented as of this encounter Visit Diagnoses Not on filedocumented in this encounter Care Teams Braided Band Assembler Relationship Specialty Start Date End Date Nas Cardenas MD PCP - General Family Practice 02/01/12 04/12/17 documented as of this encounter
--- OUTSIDE RECORDS SUMMARY | 2022-06-22 08:58 | XMS_ITS | Encounter Summary ---
:1940 Author Organization [place] Address [address] [place] [address] Care Team Providers Name Role Phone Nas Cardenas MD Primary Care Provider Reason for Visit Reason Onset Date Comments Left Message To Call 01/23/2017 re the warfarin Encounter Details Date Type Department Care Team Description 01/23/2017 Telephone [facility] Catherine Aranda, Left Message To Call Heart Clinic [facility] (re the warfarin) [address] [facility] [address] [place] [phone] Social History Tobacco Use Types Packs/Day Years Used Date Never Smoker Alcohol Use Standard Drinks/Week Comments No 0 (1 standard drink = 0.6 oz pure alcoho l) Sex Assigned at Date Recorded Not on file documented as of this encounter Miscellaneous Notes Telephone Encounter - Fabiola Hurtado RN, RN - 01/23/2017 1:07 PM CDT Called patient back. I explained the dietary restrictions of warfarin are not you can't eat any greens, you simply have to have consistency in your diet. We discussed this further, he stated he had dinner with a friend who was on it but was complaining because he could not eat cabbage or lettuce etc. I told him again this was not completely true. He then stated he had an appointment with INR nurse to discuss starting warfarin- he will go and listen to her. I asked him to let us know what his finaldecision is. He stated- lets go with I will try it but if I decide not to I will call. Supa,RN Telephone Encounter - Catherine Aranda LPN - 01/23/2017 12:30 PM CDT Pt left a voice message on my phone, saw Dr Smith end of November-his message said I wont take warfarin,I like my salads, Im just going to take asa daily-looks like Dr Smith switched him from eliquis to warfarin -please call pt-will forward to EP team-yvette mena documented in this encounter Plan of Treatment Upcoming Encounters Date Type Specialty Care Team Description 06/26/2022 Ancillary Procedure Cardiology Seng Canchola MD [address] [place] [phone] (Wo rk) 08/16/2022 Ancillary Procedure Cardiology Timothy Smith MD [address] [place] [address] (Wo rk) 08/16/2022 Office Visit Cardiology Timothy Smith MD [address] [place] [address] (Wo rk) documented as of this encounter Visit Diagnoses Not on filedocumented in this encounter Care Teams Dictionary Editor Relationship Specialty Start Date End Date Nas Cardenas MD PCP - General Family Practice 02/01/12 04/12/17 documented as of this encounter
--- OUTSIDE RECORDS SUMMARY | 2022-06-22 08:58 | XMS_ITS | Encounter Summary ---
:1940 Author Organization [place] Address [address] [place] [address] Care Team Providers Name Role Phone Nas Cardenas MD Primary Care Provider Reason for Visit Reason Onset Date Comments Results 01/15/2017 Holter Encounter Details Date Type Department Care Team Description 01/15/2017 Telephone [facility] Heart Fabiola Hurtado, Results (Holter) Clinic [place] RN, RN [address] [facility] HEART [address] [place] [address] [address] [facility] [phone] [address] [place], [place] [phone] (Wo rk) Social History Tobacco Use Types Packs/Day Years Used Date Never Smoker Alcohol Use Standard Drinks/Week Comments No 0 (1 standard drink = 0.6 oz pure alcoho l) Sex Assigned at Date Recorded Not on file documented as of this encounter Miscellaneous Notes Telephone Encounter - Fabiola Hurtado, RN, RN - 01/15/2017 3:34 PM CDT Reviewed Holter results. Dr Smith had ordered to determine if pt was having NSVT vs RVR. Unfortunately neither showed up on Holter monitoring. Average HR was 81 BPM with the fastest rate at 133 BPM. NO medication changes needed at this time. Infrequent PVC's totaling [phone] in the monitored time. LM requesting callback to review with patient. SIENNA Cowart documented in this encounter Plan of Treatment Upcoming Encounters Date Type Specialty Care Team Description 06/26/2022 Ancillary Procedure Cardiology Seng Canchola MD [address] [place] [phone] (Wo rk) 08/16/2022 Ancillary Procedure Cardiology Timothy Smith MD [address] [place] [phone] (Wo rk) 08/16/2022 Office Visit Cardiology Timothy Smith MD [address] [place] [phone] (Wo rk) documented as of this encounter Visit Diagnoses Not on filedocumented in this encounter Care Teams Engineering Assistant Relationship Specialty Start Date End Date Nas Cardenas MD PCP - General Family Practice 02/01/12 04/12/17 documented as of this encounter
--- OUTSIDE RECORDS SUMMARY | 2022-06-22 08:58 | XMS_ITS | Encounter Summary ---
:1940 Author Organization [place] Address [address] [place] [address] Care Team Providers Name Role Phone Nas Cardenas MD Primary Care Provider Reason for Visit Reason Comments ICD Check Encounter Details Date Type Department Care Team Description 03/29/2017 Allied Health/Nurse [facility] Heart ICD Check Visit Clinic [address] [place] [phone] Social History Tobacco Use Types Packs/Day Years Used Date Never Smoker Alcohol Use Standard Drinks/Week Comments No 0 (1 standard drink = 0.6 oz pure alcoho l) Sex Assigned at Date Recorded Not on file documented as of this encounter Progress Notes Mary Norris, RN, RN - 03/29/2017 4:30 PM CDT Courtesy check: No charge. Stitch remote ICD alert for VT and NSVT episodes. There have been 11 since 03/25/17. He remains in atrial tach and all episodes were atrial tach with rapid vent rates (160 - 170). Longest was 2 min. Overall heart rate controlled per histogram. Called pt and he remains free of symptoms. Pt recalled later today and left voice messaging stating he feels a bit anxious and nervous. States he noticed the feeling yesterday. He will cont to monitor and call back next week to schedule f/u with Dr Smith or SEWER PIPE SORTER if symptoms persist. Or if he cont to have frequent fast rates, we can review need to med changes with Dr Smith. 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
--- OUTSIDE RECORDS SUMMARY | 2022-06-22 08:58 | XMS_ITS | Encounter Summary ---
:1940 Author Organization [place] Address [address] [place] [address] Care Team Providers Name Role Phone Nas Cardenas MD Primary Care Provider Reason for Visit Reason Onset Date Comments Refill Request 06/15/2016 Encounter Details Date Type Department Care Team Description 06/15/[address] [facility] Heart LangenbrMarian velasco, Refill Request Clinic [place] [address] [facility] [address] [place] [phone] Social History Tobacco Use Types Packs/Day [...] [address] [place] [phone] (Wo rk) 08/16/2022 Ancillary Procedure Cardiology Timothy Smith MD [address] [place] [phone] (Wo rk) 08/16/2022 Office Visit Cardiology Timothy Smith MD [address] [place] [phone] (Wo rk) documented as of this encounter Visit Diagnoses Diagnosis Atrial flutter (H) - Primary Atrial flutter documented in this encounter Care Teams Laboratory Chief Relationship Specialty Start Date End Date Nas Cardenas MD PCP - General Family Practice 02/01/12 04/12/17 documented as of this encounter
--- OUTSIDE RECORDS SUMMARY | 2022-06-22 08:58 | XMS_ITS | Encounter Summary ---
:1940 Author Organization [place] Address [address] [place] [address] Care Team Providers Name Role Phone Nas Cardenas MD Primary Care Provider Reason for Visit Reason Onset Date Comments Formulary Issue 03/29/2016 Eliquis and NOACS in general are not covered by his insurance plan Encounter Details Date Type Department Care Team Description 03/29/2016 Telephone [facility] [place] Bui RN, RN (Eliquis and NOACS in [address] [facility] HEART genera l are not covered [facility] W2 CLINIC by his insurance plan) [place] [phone] [address] [facility] [phone] [address] [place] [address] Social History Tobacco Use Types Packs/Day Years Used Date Never Smoker Alcohol Use Standard Drinks/Week Comments No 0 (1 standard drink = 0.6 oz pure alcoho l) Sex Assigned at Date Recorded Not on file documented as of this encounter Miscellaneous Notes Telephone Encounter - Fabiola Hurtado, RN, RN - 03/29/2016 9:37 AM CDT Patient calling to report that the Eliquis will cost him 500$ for a 3 month supply- an amount he is not will ing to pay. He states they will cover Pletal,clopideral and warfarin. I explained that the Pletal and Plavix are Antiplatelets medications and do not replace NOACs. He will need to use warfarin. He will have his INR monitored through his PCP, Dr Gordon' office. Paper orders sent to his office ([facility]); 1 month Rx for 5 mg warfarin sent to pharmacy. ARLENchaeppi documented in this encounter Plan of Treatment Upcoming Encounters Date Type Specialty Care Team Description 06/26/2022 Ancillary Procedure Cardiology Seng Canchola MD [address] [place] [phone] (Wo rk) 08/16/2022 Ancillary Procedure Cardiology Timothy Smith MD [address] [place] [phone] (Wo rk) 08/16/2022 Office Visit Cardiology Timothy Smith MD [address] [place] [phone] (Wo rk) documented as of this encounter Visit Diagnoses Diagnosis Typical atrial flutter (H) - Primary Atrial flutter documented in this encounter Care Teams Developmental Behavioral Physician Relationship Specialty Start Date End Date Nas Cardenas MD PCP - General Family Practice 02/01/12 04/12/17 documented as of this encounter
--- OUTSIDE RECORDS SUMMARY | 2022-06-22 08:58 | XMS_ITS | Encounter Summary ---
:1940 Author Organization [place] Address [address] [place] [address] Care Team Providers Name Role Phone Nas Cardenas MD Primary Care Provider Reason for Visit Reason Onset Date Comments Prior Auth - Medication 04/24/2016 ELIQUIS 5 MG- NO PA NEEDED Encounter Details Date Type Department Care Team Description 04/24/2016 Telephone [facility] Heart Zraina Smith MD Prior Auth - Medication Clinic [place] [address] (ELIQUIS 5 MG- NO PA [address] NEEDED) [facility] [address] [place] [address] [place] [phone] Social History Tobacco Use Types Packs/Day Years Used Date Never Smoker Alcohol Use Standard Drinks/Week Comments No 0 (1 standard drink = 0.6 oz pure alcoho l) Sex Assigned at Date Recorded Not on file documented as of this encounter Miscellaneous Notes Telephone Encounter - Yareli Tamez - 06/08/2016 12:22 PM CDT Images from the original note were not included. NO PA NEEDED PT NOTIFIED AND HE STATES HE CANT AFFORD THE MEDICATION @ $500 FOR 3 MONTH SUPPLY. I CALLED [employer] AND REQUESTED/INITIATED A TIER REDUCTION. WILL KNOW SOMETHING WITHIN 24-72HRS. documented in this encounter Plan of Treatment Upcoming Encounters Date Type Specialty Care Team Description 06/26/2022 Ancillary Procedure Cardiology Seng Canchola MD [address] [place], [place] [phone] (Wo rk) 08/16/2022 Ancillary Procedure Cardiology Timothy Smith MD [address] [place], [place] [address] (Wo rk) 08/16/2022 Office Visit Cardiology Timothy Smith MD [address] [place], [place] [phone] (Wo rk) documented as of this encounter Visit Diagnoses Not on filedocumented in this encounter Care Teams Delta System Freight Car Cleaner Relationship Specialty Start Date End Date Nas Cardenas MD PCP - General Family Practice 02/01/12 04/12/17 documented as of this encounter
--- OUTSIDE RECORDS SUMMARY | 2022-06-22 08:58 | XMS_ITS | Encounter Summary ---
:1940 Author Organization [place] Address [address] [place] [address] Care Team Providers Name Role Phone Graham Licona MD Primary Care Provider Reason for Visit Reason Comments Pacemaker Check alert for VHR Encounter Details Date Type Department Care Team Description 05/17/2017 Documentation Only [facility] Sergo Vega cemaker Check Heart Clinic [place] Lynne RN (alert for VHR) [address] [facility] [address] [place] [phone] Social History Tobacco Use Types Packs/Day Years Used Date Never Smoker Alcohol Use Standard Drinks/Week Comments No 0 (1 standard drink = 0.6 oz pure alcoho l) Sex Assigned at Date Recorded Not on file documented as of this encounter Progress Notes Guera Vega, SIENNA - 05/17/2017 1:40 PM CDT [place] PPM. Alert for VHR. Tracings show AF/RVR. Will continue to monitor. Pt on OAC. MarianeLanJeanN documented in this encounter Plan of Treatment Upcoming Encounters Date Type Specialty Care Team Description 06/26/2022 Ancillary Procedure Cardiology Seng Canchola MD [address] [facility] [address] [place] [phone] (Wo rk) 08/16/2022 Ancillary Procedure Cardiology Timothy Smith MD [address] [place] [address] (Wo rk) 08/16/2022 Office Visit Cardiology Timothy Smith MD [address] [place] [address] (Wo rk) documented as of this encounter Visit Diagnoses Not on filedocumented in this encounter Care Teams Editorial Cartoonist Relationship Specialty Start Date End Date Graham Licona MD PCP - General Family Practice 04/13/17 01/15/18 [facility] [address] [place] [address] documented as of this encounter
--- OUTSIDE RECORDS SUMMARY | 2022-06-22 08:58 | XMS_ITS | Encounter Summary ---
:1940 Author Organization [place] Address [address] [place] [address] Care Team Providers Name Role Phone Nas Cardenas MD Primary Care Provider Reason for Visit Reason Comments Pacemaker Check PPM Latitude NXT Encounter Details Date Type Department Care Team Description 10/04/2016 Allied Health/Nurse [facility] Pac emaker Check (PPM Visit Heart Clinic [place] Latitude NXT) [address] [facility] [address] [place] [phone] Social History Tobacco Use Types Packs/Day Years Used Date Never Smoker Alcohol Use Standard Drinks/Week Comments No 0 (1 standard drink = 0.6 oz pure alcoho l) Sex Assigned at Date Recorded Not on file documented as of this encounter Progress Notes Sary Riojas - 10/04/2016 8:17 AM CST [employer] Essentio EL L121 (D) Remote PPM Device Check AP: 2% LEARNING CENTER INSTRUCTOR: 13% Mode: DDDR Presenting Rhythm: Aflutter with VS and LEARNING CENTER INSTRUCTOR Heart Rate: evidence on histogram of some RVR with a flutter with rates up to 150 bpm Sensing: stable Pacing Threshold: stable Impedance: stable Battery Status: 13.5 years remaining Atrial Arrhythmia: pt remains in mode switch 100% of the time. Taking Eliquis Ventricular Arrhythmia: pt continues to have brief vent high rates. EGMs available show Aflutter with RVR. Reviewed findings with Supa EL. Care Plan: F/U Latitude NXT q 3 months. No answer, left voice message with results and next transmission date. Darius CVT FILLER MACHINE OPERATOR documented in this encounter Plan of Treatment Upcoming Encounters Date Type Specialty Care Team Description 06/26/2022 Ancillary Procedure Cardiology Seng Canchola MD [address] [place] [address] (Wo rk) 08/16/2022 Ancillary Procedure Cardiology Timothy Smith MD [address] [place] [address] (Wo rk) 08/16/2022 Office Visit Cardiology Timothy Smith MD [address] [place], [place] [phone] (Wo rk) documented as of this encounter Procedures Procedure Name Priority Date/Time Associated Diagnosis Comme [facility] PM DEVICE Routine 10/04/2016 8:35 AM Cardiac pacemaker in INTERROGATE REMOTE, UP BAG FILLER MACHINE OPERATOR situ TO 90 DAYS, LEAD/LEADLESS HC INTERR DEVICE EVAL Routine 10/04/2016 Cardiac pacemaker i n REMOTE, PM/LDLS PM/ICD, situ UP TO 90 DAYS documented in this encounter Results INTERROGATION DEVICE EVAL REMOTE, PACER/ICD (02680) (10/04/2016) Narrative This result has an attachment that is no t available. Chris Hinds MD PROCEDURES documented in this encounter Visit Diagnoses Diagnosis Cardiac pacemaker in situ - Primary documented in this encounter Care Teams Rn Nicu Relationship Specialty Start Date End Date Nas Cardenas MD PCP - General Family Practice 02/01/12 04/12/17 documented as of this encounter
--- OUTSIDE RECORDS SUMMARY | 2022-06-22 08:58 | XMS_ITS | Encounter Summary ---
:1940 Author Organization [place] Address [address] [place] [address] Care Team Providers Name Role Phone Nas Cardenas MD Primary Care Provider Reason for Visit Reason Onset Date Comments Other 04/06/2016 left messge stating he was not going to start warfarin Encounter Details Date Type Department Care Team Description 04/06/2016 Telephone [facility] Heart Fabiola Hurtado (left messge Clinic [place] Bui, RN, RN stating he was not [address] [facility] HEART going to start [facility] [address] CLINIC warfarin) [place] [phone] [address] [facility] [phone] [address] [place] [phone] Social History Tobacco Use Types Packs/Day Years Used Date Never Smoker Alcohol Use Standard Drinks/Week Comments No 0 (1 standard drink = 0.6 oz pure alcoho l) Sex Assigned at Date Recorded Not on file documented as of this encounter Miscellaneous Notes Telephone Encounter - Fabiola Hurtado, RN, RN - 04/06/2016 10:36 AM CDT Patient calling and left a message. He states he has decided to not start warfarin. He states I haveabout 10 days left of Eliquis, then my holter test (increased metoprolol from 50-100 mg); but I decided I am not going to take this warfarin. He has already checked into the cost of NOAC and they are too expensive. He has a follow up visit with Dr Smith in May. He extended when he came in for F/U as the earlier openings were during boudreaux hour times and refused to drive during this time. SIENNA Cowart documented in this encounter Plan of Treatment Upcoming Encounters Date Type Specialty Care Team Description 06/26/2022 Ancillary Procedure Cardiology Seng Canchola MD [address] [place] [phone] (Wo rk) 08/16/2022 Ancillary Procedure Cardiology Timothy Smith MD [address] [place] [phone] (Wo rk) 08/16/2022 Office Visit Cardiology Timothy Smith MD [address] [place] [phone] (Wo rk) documented as of this encounter Visit Diagnoses Not on filedocumented in this encounter Care Teams Pharmacy Technician Per Diem Relationship Specialty Start Date End Date Nas Cardenas MD PCP - General Family Practice 02/01/12 04/12/17 documented as of this encounter
--- OUTSIDE RECORDS SUMMARY | 2022-06-22 08:58 | XMS_ITS | Encounter Summary ---
:1940 Author Organization [place] Address [address] [place] [address] Care Team Providers Name Role Phone Graham Licona MD Primary Care Provider Reason for Visit Reason Comments Pacemaker Check Courtesy/Alert Encounter Details Date Type Department Care Team Description 04/19/2017 Allied Health/Nurse [facility] Pac emaker Check Visit Heart Clinic [place] (Courtesy/Alert) [address] [facility] [address] [place] [phone] Social History Tobacco Use Types Packs/Day Years Used Date Never Smoker Alcohol Use Standard Drinks/Week Comments No 0 (1 standard drink = 0.6 oz pure alcoho l) Sex Assigned at Date Recorded Not on file documented as of this encounter Progress Notes Quang Montalvo, RN - 04/19/2017 4:30 PM CDT [employer] Essentio PPM Courtesy/ No Charge Alert received for VT episodes. EGMs reviewed showing AF with RVR between 21 seconds and 1 minute and 13 seconds. Patient has know AF. Will continue to monitor. YYangREvaristo documented in this encounter Plan of Treatment Upcoming Encounters Date Type Specialty Care Team Description 06/26/2022 Ancillary Procedure Cardiology Seng Canchola MD [address] [facility] [address] [place] [address] (Wo rk) 08/16/2022 Ancillary Procedure Cardiology Timothy Smith MD [address] [place] [phone] (Wo rk) 08/16/2022 Office Visit Cardiology Timothy Smith MD [address] [place] [phone] (Wo rk) documented as of this encounter Visit Diagnoses Diagnosis Cardiac pacemaker in situ - Primary documented in this encounter Care Teams Freight Broker Agent Relationship Specialty Start Date End Date Graham Licona MD PCP - General Family Practice 04/13/17 01/15/18 [facility] [address] [place] [address] documented as of this encounter
--- OUTSIDE RECORDS SUMMARY | 2022-06-22 08:58 | XMS_ITS | Encounter Summary ---
:1940 Author Organization [place] Address [address] [place] [address] Care Team Providers Name Role Phone Nas Cardenas MD Primary Care Provider Reason for Visit Reason Comments ICD Check Encounter Details Date Type Department Care Team Description 03/26/2017 Allied Health/Nurse [facility] Heart ICD Check Visit Clinic [place] [address] [facility] [address] [place] [phone] Social History Tobacco Use Types Packs/Day Years Used Date Never Smoker Alcohol Use Standard Drinks/Week Comments No 0 (1 standard drink = 0.6 oz pure alcoho l) Sex Assigned at Date Recorded Not on file documented as of this encounter Progress Notes Mary Norris, RN, RN - 03/26/2017 4:30 PM CDT Courtesy Check: No charge. [employer] ICD remote alert due to episodes of NSVT. Reviewd EGMs and they appear PAT with RVR. Presenting rhythm is PAT. Called pt and he was not aware of any episodes. He feels fine. He admits to doing some heavy work over the weekend. MJBRN documented in this encounter Plan of Treatment Upcoming Encounters Date Type Specialty Care Team Description 06/26/2022 Ancillary Procedure Cardiology Seng Canchola MD [address] 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
--- OUTSIDE RECORDS SUMMARY | 2022-06-22 08:58 | XMS_ITS | Encounter Summary ---
:1940 Author Organization [place] Address [address] [place] [address] Care Team Providers Name Role Phone Graham Licona MD Primary Care Provider Reason for Visit Reason Onset Date Comments Medication Request 05/04/2017 SE with warfarin- wa nts to switch back to Eliquis Encounter Details Date Type Department Care Team Description 05/04/2017 Telephone [facility] Heart Zarina Smith MD Medication Request (SE Clinic [place] [address] with warfarin- wants to [address] switch back to Eliquis) [facility] [address] [place] [address] [place] [phone] Social History Tobacco Use Types Packs/Day Years Used Date Never Smoker Alcohol Use Standard Drinks/Week Comments No 0 (1 standard drink = 0.6 oz pure alcoho l) Sex Assigned at Date Recorded Not on file documented as of this encounter Miscellaneous Notes Telephone Encounter - Fabiola Hurtado RN, RN - 05/04/2017 3:59 PM CDT Patient calling in. He states he has not been feeling well, he states I read the SE of warfarin Josefina am having a lot of these SE. I asked him what was going on. He reports, dakotah SOB,itching, tingling, CP, stomach pain. He was in to see his PCP today, they andres blood and a chest X ray. He was instructed to return on Sunday. The primary care DID NOT instruct him to stop AC. He reports his Hemoglobin was at 13. Our last draw was January of 2016, Hemoglobin at that time was 15.8. Patient is requesting to switch back to Eliquis. He is asking that I call in a 30 day supply to local [facility], then send 90 day Rx to mail order. Since primary care did not instruct pt to stop AC, I will military exchange wireless manager the prescription at this time. Patient will call us back after F/U on Sunday with anyfurther instructions/findings. SIENNA Cowart documented in this encounter Plan of Treatment Upcoming Encounters Date Type Specialty Care Team Description 06/26/2022 Ancillary Procedure Cardiology Seng Canchola MD [address] [place] [address] (Wo rk) 08/16/2022 Ancillary Procedure Cardiology Timothy Smith MD [address] [place] [address] (Wo rk) 08/16/2022 Office Visit Cardiology Timothy Smith MD [address] [place] [address] (Wo rk) documented as of this encounter Visit Diagnoses Diagnosis Paroxysmal atrial fibrillation (H) - Ria jing Atrial fibrillation documented in this encounter Care Teams Supervisor Park Workers Relationship Specialty Start Date End Date Graham Licona MD PCP - General Family Practice 04/13/17 01/15/18 [facility] [address] [place] [address] documented as of this encounter
--- OUTSIDE RECORDS SUMMARY | 2022-06-22 08:58 | XMS_ITS | Encounter Summary ---
:1940 Author Organization [employer] Address [address] [place] [address] Care Team Providers Name Role Phone Graham Licona MD Primary Care Provider Reason for Visit Reason Onset Date Comments Prior Auth - Medication 05/10/2017 apixaban ANTICOA GULANT (ELIQUIS) 5 MG tablet - Tier Exception Appro chikis Encounter Details Date Type Department Care Team Description 05/10/2017 Telephone [facility] Timothy Smith MD Prior Auth - Medication [facility] [place] [address] (apixaban ANTICOAGULANT [address] (ELIQUIS) 5 MG tablet - [facility] [address] [place] [address] Tier Exception Approved) [place] [id number] Social History Tobacco Use Types Packs/Day Years Used Date Never Smoker Alcohol Use Standard Drinks/Week Comments No 0 (1 standard drink = 0.6 oz pure alcoho l) Sex Assigned at Date Recorded Not on file documented as of this encounter Miscellaneous Notes Telephone Encounter - Yareli Tamez - 05/28/2017 9:35 AM CDT Tier Exception Approval Authorization Effective Date: 05/16/2017 Authorization Expiration Date: 09/30/2017 Medication: apixaban ANTICOAGULANT (ELIQUIS) 5 MG tablet - Tier Exception Approved Approved Dose/Quantity: Reference #: Insurance Company: [employer] - Expected CoPay: $1.00 patient p/u meds on 05/23/17 CoPay Card Available: Foundation Assistance Needed: Which Pharmacy is filling the prescription (Not needed for infusion/clinic administered): [facility] [address] [place] [phone] [facility] Pharmacy Notified: Yes Patient Notified: Yes Telephone Encounter - Yareli Tamez - 05/28/2017 9:30 AM CDT Images from the original note were not included. Telephone Encounter - Yareli Tamez - 05/16/2017 11:28 AM CDT Images from the original note were not included. [facility] Authorization Team Tier Exception Initiation Medication: apixaban ANTICOAGULANT (ELIQUIS) 5 MG tablet Insurance Company: [employer] - Pharmacy Filling the Rx: [facility] [address] [place] [phone] [facility] Filling Pharmacy Filling Pharmacy Fax: Start Date: 05/16/2017 documented in this encounter Plan of Treatment Upcoming Encounters Date Type Specialty Care Team Description 06/26/2022 Ancillary Procedure Cardiology Seng Canchola MD [address] [place] [id number] (Wo rk) 08/16/2022 Ancillary Procedure Cardiology Timothy Smith MD [address] [place] [id number] (Wo rk) 08/16/2022 Office Visit Cardiology Timothy Smith MD [address] [place] [phone] (Wo rk) documented as of this encounter Visit Diagnoses Not on filedocumented in this encounter Care Teams Director Process Engineering Relationship Specialty Start Date End Date Graham Licona MD PCP - General Family Practice 04/13/17 01/15/18 [facility] [address] [place] [address] documented as of this encounter
--- OUTSIDE RECORDS SUMMARY | 2022-06-22 08:58 | XMS_ITS | Encounter Summary ---
:1940 Author Organization [place] Address [address] [place] [address] Care Team Providers Name Role Phone Graham Licona MD Primary Care Provider Reason for Visit Reason Onset Date Comments Pacemaker Check 04/25/2017 Remote alert for VHR Encounter Details Date Type Department Care Team Description 04/25/2017 Telephone [facility] Fabiola Hurtado acemaker Check (Remote Clinic Shilpi Bui, RN, RN alert for VHR) [address] [facility] [address] [place] [address] [address] [facility] [phone] [address] [place] [address] Social History Tobacco Use Types Packs/Day Years Used Date Never Smoker Alcohol Use Standard Drinks/Week Comments No 0 (1 standard drink = 0.6 oz pure alcoho l) Sex Assigned at Date Recorded Not on file documented as of this encounter Miscellaneous Notes Telephone Encounter - Fabiola Hurtado, RN, RN - 04/25/2017 5:09 PM CDT [facility] P[facility] Alert Received alert for another VHR. EGM again shows irregular VS events suggestive of RVR lasting 30 seconds. I did contact patient today to assure there have been no changes in his medications due to the frequency of alerts lately. EPIC shows pt should be taking 50 mg Toprol XL. Holter obtained while on that dose showed 24 hour avg HR of 81 BPM. Patient reports no changes in his medications, he is faithfully taking his Metoprolol daily. He also agreed to take warfarin and has been on that for about a month or so. Overall pt has been feeling well. Will continue to monitor for longer episodes of RVR. SIENNA Cowart documented in this encounter Plan of Treatment Upcoming Encounters Date Type Specialty Care Team Description 06/26/2022 Ancillary Procedure Cardiology Seng Canchola MD [address] [place] [phone] (Wo rk) 08/16/2022 Ancillary Procedure Cardiology Timothy Smith MD [address] [place], [place] [address] (Wo rk) 08/16/2022 Office Visit Cardiology Timothy Smith MD [address] [place] [address] (Wo rk) documented as of this encounter Visit Diagnoses Not on filedocumented in this encounter Care Teams Artificial Marble Worker Relationship Specialty Start Date End Date Graham Licona MD PCP - General Family Practice 04/13/17 01/15/18 [facility] [address] [place] [address] documented as of this encounter
--- OUTSIDE RECORDS SUMMARY | 2022-06-22 08:58 | XMS_ITS | Encounter Summary ---
:1940 Author Organization [place] Address [address] [place] [address] Care Team Providers Name Role Phone Nas Cardenas MD Primary Care Provider Reason for Visit Reason Comments Heart Problem 6 week follow up - Closed Specialty Diagnoses / Procedures Referred By Contact Refer red To Contact Diagnoses SSS (sick sinus syndrome) (H) Typical atrial flutter (H) [facility] [id number] [place] [id number] Referral ID Status Reason Start Date Expiration Date Visits Requ ested Visits Authorized [id number] Closed 04/11/2016 04/11/2017 1 1 Encounter Details Date Type Department Care Team Description 05/15/2016 Office Visit [facility] Ankur Smith MD SSS (sick sinus syndrome) (H); [facility] [place] [address] [place] [address] Typical atrial flutter (H) [id number] [place] [address] [place] [address] Social History Tobacco Use Types Packs/Day Years Used Date Never Smoker Alcohol Use Standard Drinks/Week Comments No 0 (1 standard drink = 0.6 oz pure alcoho l) Sex Assigned at Date Recorded Not on file documented as of this encounter Last Filed Vital Signs Vital Sign Reading Time Taken Comments Blood Pressure 144/82 05/15/2016 1:03 PM CDT Pulse 90 05/15/2016 1:03 PM CDT Temperature - - Respiratory Rate - - Oxygen Saturation 93% 05/15/2016 1:03 PM CDT Inhaled Oxygen Concentration - - Weight 135.6 kg (299 lb) 05/15/2016 1:03 PM CDT Height 180.3 cm (5' 11) 05/15/2016 1:03 PM CDT Body Mass Index 41.7 05/15/2016 1:03 PM CDT documented in this encounter Progress Notes Ankur Smith MD - 05/15/2016 1:38 PM CDT May 15, 2016 Nas Cardenas MD [facility] [id number] [place], [place] [id number] RE: Radha Villa : [address] Cardenas: I saw Mr. Villa for followup of atrial flutter and sinus node dysfunction. He is a 75-year-old [place] with a history of coronary artery disease and previous CABG. He had atrial flutter ablation in 2012. The patient was admitted for possible acute coronary syndrome in January. During the hospitalization, he was found to have multiple episodes of sinus asystole. He received a [employer] dual-chamber pacemaker implantation during the same hospitalization because he reported history of recurrent near-syncope prior to the admission. Since the pacemaker implantation, he has not had any recurrent syncope. He did undergo coronary angiography that showed patent grafts, although his [place] vessels were occluded. At the present time, he denies shortness of breath, palpitation, dizziness or chest pain. PHYSICAL EXAMINATION: VITAL SIGNS: On examination, blood pressure was 144/82, heart rate 90 beats per minute, body weight 299 pounds. CHEST: The pacemaker site has healed well. LUNGS: Clear. CARDIAC: The cardiac rhythm was regular and heart sounds were normal without murmur. ABDOMEN: Showed severe obesity. EXTREMITIES: There was no pedal edema. ASSESSMENT AND RECOMMENDATIONS: Mr. Villa is doing well symptomatically. A recent Holter showed thathe was mostly in atrial flutter with controlled ventricular rate. He is on Eliquis for anticoagulation, but he is concerned about his copayment. I asked him to contact his pharmacy regarding possible sw itching to Pradaxa or Xarelto if his copayment can be reduced. For the time being, he will continue the free samples of Eliquis for at least another 9 weeks. If he decides to switch to the other anticoagulant, he can contact our office for a prescription. His blood pressure is mildly elevated, but the patient insisted that his blood pressure has been quite normal when it is checked in your office. I will therefore, leave it up to you for possible titration of his high blood pressure medications in the future. Sincerely, MD ANKUR Greene MD MT: [id number] Name: RADHA VILLA Account: [id number] : 1940 Service Date: 05/15/2016 Document: [id number] Ankur Smith MD - 05/15/2016 1:29 PM CDT HPI and Plan: See dictation No orders of the defined types were placed in this encounter. Orders Placed This Encounter Medications ??? losartan (COZAAR) 25 MG tablet Sig: Take 25 mg by mouth Medications Discontinued During This Encounter Medication Reason ??? lisinopril (PRINIVIL,ZESTRIL) 20 MG tablet Therapy completed ??? warfarin (COUMADIN) 5 MG tablet Therapy completed Encounter Diagnoses Name Primary? SSS (sick sinus syndrome) (H) ??? Typical atrial flutter (H) CURRENT MEDICATIONS: Current Outpatient Prescriptions Medication Sig Dispense Refill ??? losartan (COZAAR) 25 MG tablet Take 25 mg by mouth ??? apixaban ANTICOAGULANT (ELIQUIS) 5 MG tablet Take 1 tablet (5 mg) by mouth 2 times daily 180 tablet 3 ??? metoprolol (TOPROL-XL) 50 MG 24 hr tablet Take 1 tablet (50 mg) by mouth 2 times daily Take 50 mg twice daily (pt prefers to split dosing) 100 mg daily 180 tablet 3 ??? metFORMIN (GLUCOPHAGE) 500 MG tablet Take 2 tablets (1,000 mg) by mouth 2 times daily (with meals) 60 tablet ??? GLIPIZIDE PO Take 5 mg by mouth 2 times daily (before meals) ??? celecoxib (CELEBREX) 200 MG capsule Take 200 mg by mouth 2 times daily ??? fenofibrate 160 MG tablet Take 160 mg by mouth daily. ??? PANTOPRAZOLE SODIUM PO Take 40 mg by mouth every morning (before breakfast). ??? NITROGLYCERIN SL Place 0.4 mg under the tongue every 5 minutes as needed ??? pravastatin (PRAVACHOL) 80 MG tablet Take 80 mg by mouth At Bedtime ??? acetaminophen-codeine (TYLENOL #3) 300-30 MG per tablet Take 1-2 tablets by mouth every 4 hours as needed for moderate pain 10 tablet 0 ??? ACYCLOVIR 400 MG OR TABS 1 TABLET 3 TIMES DAILY-as need for Cold sores 30 6 ALLERGIES Allergies Allergen Reactions ??? No Known Allergies PAST MEDICAL HISTORY: Past Medical History Diagnosis Date ??? Coronary artery disease sp CABG ??? Arthritis ??? Hypertension ??? Malignant neoplasm (H) eye cancer tx with radiation 10 years ago, monitoring every 2 months ??? Atrial flutter (H) sp ablation 02/27/2013 ??? Sleep apnea ??? Melanoma (H) right eye ??? PVC (premature ventricular contraction) ??? Sinus node dysfunction (H) with recurrent near syncope, PM 02/03/2016 PAST SURGICAL HISTORY: Past Surgical History Procedure Laterality Date ??? Catheter, ablation 01/2013 Atrial flutter ??? C cabg, artery-vein, four 1985 ??? Cholecystectomy ??? Hernia repair ??? Orthopedic surgery ??? Rotator cuff ??? Hc left heart catheterization 01/2012 see report FAMILY HISTORY: Family History Problem Relation Age of Onset ??? Heart Disease Father ??? Obesity Paternal Grandmother ??? Obesity Daughter ??? Obesity Son SOCIAL HISTORY: Social History Social History ??? Marital Status: Spouse Name: N/A ??? Number of Children: N/A ??? Years of Education: N/A Social History Main Topics ??? Smoking status: Never Smoker ??? Smokeless tobacco: None ??? Alcohol Use: No ??? Drug Use: No ??? Sexual Activity: Not Asked Other Topics Concern ??? Parent/Sibling W/ Cabg, Mi Or Angioplasty Before 65f 55m? No ??? Caffeine Concern Yes 2 cups coffe ??? Sleep Concern No ??? Stress Concern No ??? Special Diet No ??? Exercise No Social History Narrative Review of Systems: Skin: Positive for nail changes spilting nails Eyes: Positive for glasses eye cancer removed ENT: Negative Respiratory: Positive for dyspnea on exertion Cardiovascular: Negative for;palpitations;chest pain;fatigue;lightheadedness Gastroenterology: Negative for melena;hematochezia Genitourinary: Negative Musculoskeletal: Positive for arthritis Neurologic: Negative Psychiatric: Negative Heme/Lymph/Imm: Negative Endocrine: Positive for diabetes Physical Exam: Vitals: BP 144/82 mmHg Pulse 90 Ht 1.803 m (5' 11) Wt 135.626 kg (299 lb) BMI 41.72 kg/m2 SpO2 93% Constitutional: cooperative, alert and oriented, well developed, [...] appropriate, oriented to time, person and place CC No referring provider defined for this encounter. documented in this encounter Plan of Treatment Upcoming Encounters Date Type Specialty Care Team Description 06/26/2022 Ancillary Procedure Cardiology Seng Canchola MD [address] [place] [id number] (Wo wade) 08/16/2022 Ancillary Procedure Cardiology Ankur Smith MD [address] [place] [id number] (Wo rk) 08/16/2022 Office Visit Cardiology Ankur Smith MD [address] [place] [address] (Wo rk) documented as of this encounter Visit Diagnoses Diagnosis SSS (sick sinus syndrome) (H) Sinoatrial node dysfunction Typical atrial flutter (H) Atrial flutter documented in this encounter Care Teams Warehouse Processor Relationship Specialty Start Date End Date Nas Cardenas MD PCP - General Family Practice 02/01/12 04/12/17 documented as of this encounter
--- OUTSIDE RECORDS SUMMARY | 2022-06-22 08:58 | XMS_ITS | Encounter Summary ---
:1940 Author Organization [facility] Address [address] [place] [address] Care Team Providers Name Role Phone Nas Cardenas MD Primary Care Provider Reason for Referral - Closed Specialty Diagnoses / Procedures Referred By Contact Refer red To Contact Diagnoses Sinoatrial node dysfunction (H) Tammy Montenegro PA-C [address] [place] [id number] Referral ID Status Reason Start Date Expiration Date Visits Requ ested Visits Authorized [id number] Closed 12/04/2016 12/04/2017 1 1 Reason for Visit Reason Comments Heart Problem CAD Irregular Heart Beat s/p PPM - Closed Specialty Diagnoses / Procedures Referred By Contact Refer red To Contact Diagnoses Sinoatrial node dysfunction (H) Timothy Smith MD [address] [place] [address] Referral ID Status Reason Start Date Expiration Date Visits Requ ested Visits Authorized [id number] Closed 03/06/2016 03/06/2017 1 1 Encounter Details Date Type Department Care Team Description 03/09/2016 Office Visit [facility] Timothy Smith MD [address] [place] [id number] Cardiac pacemaker in situ (Primary Dx); Heart Clinic Tammy Carver PA-C [address] [place] [id number] Sinoatrial node dysfunction (H); [address] [facility] Benign es sential hypertension; [address] Typical atrial flutter (H) [place] [phone] Social History Tobacco Use Types Packs/Day Years Used Date Never Smoker Alcohol Use Standard Drinks/Week Comments No 0 (1 standard drink = 0.6 oz pure alcoho l) Sex Assigned at Date Recorded Not on file documented as of this encounter Last Filed Vital Signs Vital Sign Reading Time Taken Comments Blood Pressure 118/58 03/09/2016 8:45 AM CDT Pulse 88 03/09/2016 8:45 AM CDT Temperature - - Respiratory Rate - - Oxygen Saturation - - Inhaled Oxygen Concentration - - Weight 135.2 kg (298 lb 1.6 oz) 03/09/2016 8:45 AM CDT Height 180.3 cm (5' 11) 03/09/2016 8:45 AM CDT Body Mass Index 41.58 03/09/2016 8:45 AM CDT documented in this encounter Patient Instructions Patient InstructionsTammy Montenegro PA-C - 03/09/2016 9:01 AM CDT 1. Everything looked good today! Reviewed your first pacemaker check from mid January. Next is due on Sunday 6.28 @ 1 PM in [place] - call [phone] if you need to reschedule 2. Reviewed your angiogram/heart catheterization done in the hospital showing all of your bypasses still look great! 3. Continue to monitor for any lightheadedness or chest discomfort. 4. See Dr. Smith in 11/2016 but call earlier if need to be seen or any questions! My nurse is ZEINAB: [phone] documented in this encounter Progress Notes Tammy Montenegro PA-C - 03/09/2016 9:19 AM CDT HISTORY OF PRESENT ILLNESS: I had the pleasure of seeing Radha today when he came for followup of his recent pacemaker implantation. He is a very pleasant 75-year-old with a history of coronary disease, status post 4-vessel bypass surgery in 1986. We believe he had a vein graft to the obtuse marginal, vein graft to the RCA, vein graft to the LAD and vein graft to the diagonal. I do not believe his RAMIREZ was utilized He also had atrial flutter, status post ablation in 01/2013. He saw Dr. Smith back in 11/2015. Metoprolol succinate was decreased from 50 mg twice daily to just 50 mg daily and lisinopril was increased from 5 mg to 20 mg daily in an effort to improve blood pressure control. Unfortunately, he presented to [facility] on 02/01 and complained about chest fullness and increasing shortness of breath. His troponin was elevated and therefore, he was admitted [facility]. He underwent coronary angiography which showed an occluded [place] RCA, but vein grafts were all patent which was surprising given that they were about 30 years old. While in the hospital, he was noted to have a 5-second episode of asystole. This was actually completely asymptomatic, but the patient had noted 3 episodes of near-syncope prior to his admission. Dr. Smith saw him in the hospital and they discussed event monitor versus pacemaker implantation. Ultimately, he underwent dual-chamber [employer] pacemaker placement on 02/04/2016. Interestingly, he was noted to be in atypical atrial flutter upon arrival to the EP Lab, but after the atrial lead was placed, the flutter was pace terminated to sinus rhythm. He did have frequent PACsbut they were able to achieve atrial pacing threshold measurement. It was felt that if he were notedto have atrial fibrillation or atrial flutter on pacemaker interrogations then he would require anticoagulation given his high CHADS-VASc score. Guillermo tells me that he has done well since his hospitalization. He denies any problems with the pacemaker implantation. He denies any problems with recurrent chest pain, pressure or tightness. He denies any problems with the angiogram access site. He also denies any problems with fevers or chills. Overall, he is feeling better than before he came to the hospital. He does note that he continues toget some shortness of breath which he blames on his weight. This has not changed dramatically. He denies any problems with exertional chest pain, pressure or tightness. In the hospital, he underwent echocardiogram done 02/03 showing an EF of 50%- 55%. He had mild left ventricular hypertrophy and mild dilatation of the left atrium. Most recent device check on 02/13 showed he was 14% A paced and 8% V paced. He had frequent PACs and about 2 seconds of what looks like atrial flutter. ASSESSMENT AND PLAN: 1. Coronary disease and recent episode of chest discomfort. Again, he underwent 4-vessel bypass surgery in 1986. An angiogram done by Dr. Heard showed completely patent grafts. At this time, we will have him continue his current medications including beta best, aspirin, AMINTA inhibitor and statin therapy. 2. Asystole. He is now status post dual-chamber [employer] pacemaker implantation. His first device check showed this was working well. He is due for the next one at the end of March. He will keep his arm restrictions until then. We are continuing to watch for any episodes of arrhythmia on his pacemaker interrogations. 3. History of atrial flutter. As above, he is status post ablation 01/2013. He was noted to be in atypical atrial flutter when he presented to the EP Lab but he was paced into sinus rhythm when the atrial lead was placed. We will continue to monitor for this. He does have frequent PACs and he did havea mode switch lasting just 2 seconds. His CHADS-VASc score is 5 (hypertension, age over 75, diabetesand history of coronary disease) and Dr. Smith notes that if he did have evidence of recurrent arrhythmias that he would be placed on anticoagulation. We will continue to monitor this. It has been a pleasure to see Radha in clinic today. He will see Dr. Smith in 1 year. He will see our device nurses as arranged. TAMMY MONTENEGRO PA-C MT: Name: RADHA VILLA Account: [id number] : 1940 Service Date: 03/09/2016 Document: [id number] Tammy Montenegro PA-C - 03/09/2016 9:13 AM CDT HPI and Plan: See dictation #[id number] Orders Placed This Encounter Procedures ??? Follow-Up with Coupler ??? EKG 12-lead complete w/read - Clinics Encounter Diagnoses Name Primary? Sinoatrial node dysfunction (H) ??? Cardiac pacemaker in situ Yes ??? Benign essential hypertension ??? Typical atrial flutter (H) CURRENT MEDICATIONS: Current Outpatient Prescriptions Medication Sig Dispense Refill ??? metFORMIN (GLUCOPHAGE) 500 MG tablet Take 2 tablets (1,000 mg) by mouth 2 times daily (with meals) 60 tablet ??? metoprolol (TOPROL-XL) 50 MG 24 hr tablet Take 1 tablet (50 mg) by mouth daily ??? acetaminophen-codeine (TYLENOL #3) 300-30 MG per tablet Take 1-2 tablets by mouth every 4 hours as needed for moderate pain 10 tablet 0 ??? GLIPIZIDE PO Take 5 mg by mouth 2 times daily (before meals) ??? celecoxib (CELEBREX) 200 MG capsule Take 200 mg by mouth 2 times daily ??? aspirin 81 MG tablet Take 81 mg by mouth At Bedtime ??? lisinopril (PRINIVIL,ZESTRIL) 20 MG tablet Take 1 tablet (20 mg) by mouth daily 90 tablet 5 ??? fenofibrate 160 MG tablet Take 160 mg by mouth daily. ??? PANTOPRAZOLE SODIUM PO Take 40 mg by mouth every morning (before breakfast). ??? NITROGLYCERIN SL Place 0.4 mg under the tongue every 5 minutes as needed ??? pravastatin (PRAVACHOL) 80 MG tablet Take 80 mg by mouth At Bedtime ??? ACYCLOVIR 400 MG OR TABS 1 [...] eye ??? PVC (premature ventricular contraction) ??? High degree atrioventricular block with recurrent near syncope, PM 02/03/2016 ??? H/O angiography 02-02-2016 patent bypass grafts PAST SURGICAL HISTORY: Past Surgical History Procedure [...] Obesity Daughter ??? Obesity Son SOCIAL HISTORY: History Social History ??? Marital Status: Spouse Name: N/A ??? Number of Children: N/A ??? Years of Education: N/A Social History Main Topics ??? Smoking status: Never Smoker ??? Smokeless tobacco: Not on file ??? Alcohol Use: No ??? Drug Use: No ??? Sexual Activity: Not on file Other Topics Concern ??? Caffeine Concern Yes 2 cups coffe [...] Positive for diabetes Physical Exam: Vitals: BP 118/58 mmHg Pulse 88 Ht 1.803 m (5' 11) Wt 135.217 kg (298 lb 1.6 oz) BMI 41.59 kg/m2 Constitutional: cooperative, alert and oriented, well [...] oriented to time, person and place CC Nas Cardenas MD [facility] [address] [place] [address] documented in this encounter Plan of Treatment Upcoming Encounters Date Type Specialty Care Team Description 06/26/2022 Ancillary Procedure Cardiology Seng Canchola MD [address] [place] [address] (Wo rk) 08/16/2022 Ancillary Procedure Cardiology Timothy Smith MD [address] [place] [address] (Wo rk) 08/16/2022 Office Visit Cardiology Timothy Smith MD [address] [place] [address] (Wo rk) Scheduled Referrals Name Type Priority Associated Diagnoses Order S chedule Follow-Up with Referral Routine Sinoatrial node Expected: Coupler dysfunction (H) 12/04 (Approximate), Expires: 03/09/2017 documented as of this encounter Visit Diagnoses Diagnosis Cardiac pacemaker in situ - Primary Sinoatrial node dysfunction (H) Sinoatrial node dysfunction Benign essential hypertension Essential hypertension, benign Typical atrial flutter (H) Atrial flutter documented in this encounter Care Teams 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
--- OUTSIDE RECORDS SUMMARY | 2022-06-22 08:58 | XMS_ITS | Encounter Summary ---
:1940 Author Organization [facility] Address [address] [place] [address] Care Team Providers Name Role Phone Graham Licona MD Primary Care Provider Reason for Visit Reason Comments Pacemaker Check annual threshold Encounter Details Date Type Department Care Team Description 04/13/2017 Allied Health/Nurse [facility] Pac emaker Check (annual Visit [facility] threshold) [address] [facility] [address] [place] [phone] Social History Tobacco Use Types Packs/Day Years Used Date Never Smoker Alcohol Use Standard Drinks/Week Comments No 0 (1 standard drink = 0.6 oz pure alcoho l) Sex Assigned at Date Recorded Not on file documented as of this encounter Progress Notes Sammi Hill, SIENNA - 04/13/2017 9:45 AM CDT [employer] (D) Pacemaker Device Check AP: 1 % CHIEF MEDICAL TECHNOLOGIST: 15 % Mode: DDDR 60-130, changed to VVIR Underlying Rhythm: aflutter with 2:1 conduction, HR 75 bpm Heart Rate: good variability Sensing: WNL Pacing Threshold: WNL Impedance: WNL Battery Status: 13.5 yrs estimated longevity after changes made today. Atrial Arrhythmia: pt has been in aflutter since last annual check in March 2016. Ventricular Arrhythmia: since last alert on 04/01/2017, 8 episodes recorded, 5 EGMs available showing aflutter with 1:1 conduction, HR 160 bpm. All 5 recent EGMs are from 04/06/2017 in the afternoon, pt reports no symptoms. Setting Change: changed mode from DDDR to VVIR due to 100% aflutter. Changed V Amplitude from Trend at 2.0V to Auto, now at 1.3V. Care Plan: remote in 3 months, scheduled. Pt due for OV with Dr. Smith in November 2017. Encouraged pt to call if he ever has any symptoms of fast HR such as SOB, palpitations, lightheadedness, etc. EC RN documented in this encounter Plan of Treatment Upcoming Encounters Date Type Specialty Care Team Description 06/26/2022 Ancillary Procedure Cardiology Seng Canchola MD [address] [place], [place] [phone] (Wo rk) 08/16/2022 Ancillary Procedure Cardiology Timothy Smith MD [address] [place] [id number] (Wo rk) 08/16/2022 Office Visit Cardiology Timothy Smith MD [address] [place] [id number] (Wo rk) documented as of this encounter Procedures Procedure Name Priority Date/Time Associated Diagnosis Comme [facility] PM DEVICE PROGRAMMING Routine 04/13/2017 Cardiac pacemaker in situ EVAL, DUAL LEAD PACER Sinoatrial node dys function (H) documented in this encounter Results PM DEVICE PROGRAMMING EVAL, DUAL LEAD PACER ([id number]) (04/13/2017) Narrative This result has an attachment that is no t available. Basil Guadalupe MD PROCEDURES documented in this encounter Visit Diagnoses Diagnosis Cardiac pacemaker in situ - Primary Sinoatrial node dysfunction (H) Sinoatrial node dysfunction documented in this encounter Care Teams Mailroom Coordinator Relationship Specialty Start Date End Date Graham Licona MD PCP - General Family Practice 04/13/17 01/15/18 [facility] [address] [place] [address] documented as of this encounter
--- OUTSIDE RECORDS SUMMARY | 2022-06-22 08:59 | XMS_ITS | Encounter Summary ---
:1940 Author Organization [facility] Address [address] [place] [address] Care Team Providers Name Role Phone Nas Cardenas MD Primary Care Provider Encounter Details Date Type Department Care Team Description 02/27/2013 Historic Results [facility] Heart Unknown, [facility] [place] [address] [facility] [address] [place] [phone] Social History Tobacco Use Types [...] Seng Canchola MD [address] [facility] [address] [place] [id number] (Wo rk) 08/16/2022 Ancillary Procedure Cardiology Timothy Smith MD [address] [place] [id number] (Wo rk) 08/16/2022 Office Visit Cardiology Timothy Smith MD [address] [place] [id number] (Wo rk) documented as of this encounter Procedures Procedure Name Priority Date/Time Associated Diagnosis Comme nts EP REPORT - HIM SCAN - 02/27/2013 12:00 AM CDT ARCHIVE documented in this encounter Results EP REPORT - HIM SCAN - ARCHIVE (02/27/2013 12:00 AM CDT) Specimen (Source) Anatomical Location Collection Method / Collectio n Time Received Time / Laterality Volume 02/27/2013 Narrative This result has an attachment that is no t available. Provider Scan CV ELECTROPHYSIOLOGY ORDERAB LES documented in this encounter Visit Diagnoses Not on filedocumented in this encounter Care Teams Dermatology Physician Relationship Specialty Start Date End Date Nas Cardenas MD PCP - General Family Practice 02/01/12 04/12/17 documented as of this encounter
--- OUTSIDE RECORDS SUMMARY | 2022-06-22 08:59 | XMS_ITS | Encounter Summary ---
:1940 Author Organization [place] Address [address] [place] [address] Care Team Providers Name Role Phone Herminia Coleman MD Primary Care Provider Graham Licona MD Primary Care Provider [facility] Primary Care Provider [phone] Slava Hernandez PA-C Primary Care Provider Timothy Smith MD Unavailable Graham Licona MD Primary Care Provider Encounter Details Date Type Department Care Team Description 03/18/2013 Office Visit-[facility] Heart Radhames Huff vale [facility] [place] Mcgee PA-C [address] [facility] [address] [place] [address] Social History Tobacco Use Types Packs/Day Years Used Date Never Smoker Alcohol Use Standard Drinks/Week Comments Yes 0 (1 standard drink = 0.6 oz pure alcoho l) Sex Assigned at Date Recorded Not on file documented as of this encounter Progress Notes Michelle Huff PA-C - 04/26/2013 2:24 PM CDT Progress Note Created by: HANK Arellano [id number] DATE: 03/18/2013 RADHA VILLA DATE OF : 1940 AGE: [age] years old Referring Physician: HERMINIA COLEMAN Referring Clinic: [facility] CURRENT DIAGNOSES 1. - Hyperlipidemia, 272.4 2. - Hypertension, 401.1 3. MA-Recent Unspecified, 410.91 4. - CAD, 414.00 5. - Atrial Flutter, 427.32 ALLERGIES NKDA MEDICATIONS (prior to changes made today) 1. fenofibrate 160 mg tablet, 1 p.o. daily 2. isosorbide mononitrate 30 mg tablet extended release 24 hr, 1 p.o. PRN as Directed 3. lisinopril5 mg tablet, 1 p.o. daily 4. metoprolol succinate 50 mg tablet extended release 24 hr, 1 p.o. daily 5. Nitrostat 0.4 mg tablet, sublingual, 1 p.o. PRN as Directed 6. pantoprazole 40 mg tablet,delayed release (DR/EC), 1 p.o. daily 7. pravastatin 80 mg tablet, 1 p.o. daily 8. pseudoephedrine HCl 60 mg tablet, 90 mg po daily 9. warfarin 5 mg tablet, Take as Directed CHIEF COMPLAINTS Followup of - Atrial Flutter HISTORY OF PRESENT ILLNESS: Mr. Villa is a pleasant 72-year-old patient who presents to clinic todayfor followup after atrial flutter ablation to discuss chest discomfort as well as differential bloodpressures. He has a history of coronary artery disease and underwent coronary artery bypass graft surgery in the past at another institution. He presented to [facility] last year with chest discomfort and was found to be in atrial flutter. Due to troponin elevation he underwent coronary angiography and was found to have no significant stenosis. No intervention was performed. Subsequently he went to [facility] and underwent a direct current cardioversion. Dr. Smith saw him in January of this year for concerns regarding recurrent chest pain with exertion, such as walking more than two blocks,as well as shortness of breath and palpitations. His EKG at that time showed atrial flutter with controlled ventricular response. Dr. Smith discussed options with him and he decided to pursue an atrial flutter ablation. This was performed on 02/27/[address] Smith. A complete tricuspid isthmus block was achieved and one further ablation was required to eliminate the residual atrial electrogram over the tricuspid isthmus. He had no evidence of accessory pathway or dual AV mack pathways. No inducible SVT orVT. He has not suffered any complications from this procedure. He did call in to our clinic about two weeks later as he was having chest discomfort with activity that went away with rest. He would takean occasional nitroglycerin and this pain was relieved. Yesterday he called in to our clinic to cancel an appointment he had for today to discuss chest discomfort and then took his blood pressure this m orning and decided to come in. He was concerned as he took his blood pressure on both arms and on his left side it was more elevated than the right side, in the 140-150 on the left and 120s-130s on theright. He has not measured his blood pressure on both arms in the past. Today we did check his bloodpressure in both arms and they are very close in number. He continues to be on Coumadin 5 mg q.d. Nory tell me he has occasional episodes of chest discomfort that can occur randomly either at rest or with exertion. These do not seem to have any associated symptoms and are certainly improving since the ablation. Again, he had a normal angiogram in Jan, 2012. He denies any symptoms of dizziness, lightheadedness, or palpitations. He does have some lower extremity edema which is worse on the left than the right due to his vein graft procedure during his bypass surgery. Usually the swelling goes away overnight. Please see below for review of systems, history, and physical examination findings. EKG performed in the clinic today reveals sinus rhythm with a heart rate of 87 beats per minute and a right bundle branch block. PAST HISTORY Past Medical Illnesses: hyperlipidemia, obesity, sleep apnea on CPAP, hypertension Past Cardiac Illnesses: coronary artery disease, sp CABG, atrial flutter, S/P myocardial infarction LVEF not documented FAMILY HISTORY: Father - Age 80, ; Mother - Age 80, ; SOCIAL HISTORY Alcohol Use - does not use alcohol; Smoking - never smoked; Diet - regular diet; REVIEW OF SYSTEMS GENERAL ekg done INTEGUMENTARY denies any change in hair or nails, rashes, or skin lesions. EYES wears eye glasses/contact lenses EARS, NOSE, THROAT, MOUTH epistaxis RESPIRATORY cough, dyspnea, sleep apnea CARDIOVASCULAR chest pain, palpitations, edema ABDOMINAL denies ulcer disease, hematochezia or melena. GENITOURINARY-MALE frequency x 2, nocturia x 2 MUSCULOSKELETAL arthritis of the, thumb and back NEUROLOGICAL denies any history of recurrent strokes, headaches, TIA, or seizure disorder. PSYCHIATRIC denies any history of depression, substance abuse or change in cognitive functions. ENDOCRINE denies any history of thyroid disease or diabetes mellitus. HEMATOLOGICAL/IMMUNOLOGIC denies any food allergies, seasonal allergies, bleeding disorders. PHYSICAL EXAMINATION VITAL SIGNS: Blood Pressure: 128/64Sitting, Right arm, large cuff 128/70Sitting, Left arm, large cuff Pulse- 72.00/min. Weight- 318.00 lbs. 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 - [id number] CONSTITUTIONAL cooperative, alert and oriented,well developed, well nourished, in no acute distress. SKIN warm and dry to touch, no apparent skin lesions, or masses noted. HEAD normocephalic, atraumatic EYES Pupils equal and round, conjunctivae and lids unremarkable, sclera white, no xanthalasma ENT no pallor or cyanosis, dentition good NECK carotid pulses are full and equal bilaterally, JVP normal, no carotid bruit, no thyromegaly CHEST normal symmetry, no tenderness to palpation, normal respiratory excursion, no intercostal retraction, no use of accessory muscles, clear to auscultation and percussion. CARDIAC regular rhythm, S1 normal, S2 normal, No S3 or S4, Apical impulse not displaced, no murmurs, gallopsor rubs detected. ABDOMEN abdomen soft, bowel sounds normoactive, no masses, no hepatosplenomegaly, non- tender, no bruits PERIPHERAL PULSES pulses full and equal in all extremities, no bruits auscultated. EXTREMITIES & BACK no deformities, clubbing, cyanosis, erythema or edema observed. There are no spinal abnormalities noted. Normal muscle strength and tone. NEUROLOGICAL no gross motor deficits noted, affect appropriate, oriented to time, person and place. MEDICATIONS UPDATED/STARTED TODAY: IMPRESSIONS/PLAN IMPRESSION/PLAN: Mr. Villa is a pleasant 72-year-old patient who presents to clinic today for followup after atrial flutter ablation. He is coming in today to discuss chest discomfort after the procedure, as well as differential blood pressures. 1. Atrial flutter, status post atrial flutter ablation on 02/27/13. He does note some episodes of chest discomfort randomly. These seem to be improving sincethe procedure. He has taken some nitroglycerin for the pain and this completely relieves it. He continues to be on Coumadin for anticoagulation and is taking metoprolol succinate 50 mg q.d. 2. Hypertension. Blood pressure is well controlled today. He did come in because he was concerned regarding diffe rent blood pressure values for each arm. We did measure each arm today in the clinic and the numberswere very similar. I did suggest this could possibly be related to him putting on the blood pressurecuff himself and maybe not getting it as tight on one arm as the other. I ask that he ensure the cuff is the same tightness on both arms and if he continues to have discrepant numbers to certainly let us know. 3. Hyperlipidemia. He continues to be on statin medication. 4. Coronary artery disease, status post coronary artery bypass grafting in 1985 with a four-vessel bypass at [facility]. Subsequent angiography in Jan, 2012, did not show any significant stenosis. Thank you for allowing me to participate in the care of this pleasant patient. I encouraged him to call if he has any concerns or questions. He does have followup scheduled with Saadia Montenegro next week. Iencouraged him to keep this appointment but certainly if he is feeling well he can cancel it. He will also be seeing Dr. Smith in May. TODAYS ORDERS 1. 12 Lead EKG Today HANK Arellano documented in this encounter Plan of Treatment Upcoming Encounters Date Type Specialty Care Team Description 06/26/2022 Ancillary Procedure Cardiology Seng Canchola MD [address] [place] [address] [place] [id number] (Wo rk) 08/16/2022 Ancillary Procedure Cardiology Timothy Smith MD [address] [place] [id number] (Wo rk) 08/16/2022 Office Visit Cardiology Timothy Smith MD [address] [place] [id number] (Wo rk) documented as of this encounter Visit Diagnoses Not on filedocumented in this encounter Care Teams Grain Weigher Relationship Specialty Start Date End Date Herminia Coleman, ADA - General Family Practice 02/01/1203/31 Graham Licona MD PCP - General Family Practice 04/13/17 01/15/18 [facility] [address] [place] [address] Vinny Reinoso PCP - General 01/16/18 07/01/18 [place] [address] [place] [address] Slava Hernandez, PCP - General Physician Report Analyst 07/02/1806/02 PA-C [facility] [address] [place] [address] Graham Licona MD PCP - General Family Medicine 06/30/21 [facility] [address] [place] [address] Timothy Smith MD Assigned Heart and 07/23/20 [address] Vascular Provider [address] [place] [address] documented as of this encounter
--- OUTSIDE RECORDS SUMMARY | 2022-06-22 08:59 | XMS_ITS | Encounter Summary ---
:1940 Author Organization [place] Address [address] [place] [address] Care Team Providers Name Role Phone Nas Cardenas MD Primary Care Provider Encounter Details Date Type Department Care Team Description 01/15/[address] [facility] Heart Unknown, Doct or, [place] [id number] [facility] [address] [place] [id number] Social History Tobacco Use Types Packs/Day Years Used Date Never Smoker Alcohol Use Standard Drinks/Week Comments Yes 0 (1 standard drink = 0.6 oz pure alcoho l) Sex Assigned at Date Recorded Not on file documented as of this encounter Plan of Treatment Upcoming Encounters Date Type Specialty Care Team Description 06/26/2022 Ancillary Procedure Cardiology Seng Canchola MD [address] [facility] [address] [place] [id number] (Wo rk) 08/16/2022 Ancillary Procedure Cardiology Timothy Smith MD [address] [place] [id number] (Wo rk) 08/16/2022 Office Visit Cardiology Timothy Smith MD [address] [place] [id number] (Wo rk) documented as of this encounter Procedures Procedure Name Priority Date/Time Associated Comments Diagnosis GEMMS HISTORICAL Routine 01/15/2013 12:00 AM Resu lts for this RESULTS CDT procedure are i n the results section. documented in this encounter Results [facility] Historical Results (01/15/2013 12:00 AM CDT) P athologist Signature INR 2.9 GEMVT HISTORICAL RESULTS Specimen (Source) Anatomical Location Collection Method / Collectio n Time Received Time / Laterality Volume 01/15/2013 01/15/2013 Doctor Unknown MD LABORATORY Performing Organization Address City/State/ZIP Code Phon e Number GEMVT HISTORICAL RESULTS documented in this encounter Visit Diagnoses Not on filedocumented in this encounter Care Teams Digital Marketing Manager Relationship Specialty Start Date End Date Nas Cardenas MD PCP - General Family Practice 02/01/12 04/12/17 documented as of this encounter
--- OUTSIDE RECORDS SUMMARY | 2022-06-22 08:59 | XMS_ITS | Encounter Summary ---
:1940 Author Organization [place] Address [address] [place] [address] Care Team Providers Name Role Phone Herminia Coleman MD Primary Care Provider Reason for Referral - Closed Specialty Diagnoses / Procedures Referred By Contact Refer red To Contact Diagnoses Sinoatrial node dysfunction (H) Ankur Smith MD [address] [place] [address] Referral ID Status Reason Start Date Expiration Date Visits Requ ested Visits Authorized [id number] Closed 03/06/2016 03/06/2017 1 1 Reason for Visit Auth/Cert Specialty Diagnoses / Procedures Referred By Contact Refer red To Contact Coronary Intensive Diagnoses Chest Pain / Unstable Angina ACS (acute coronary syndrome) (HCC) Coronary Care Care Unit [address] , [address] [place] [address] Phone: Referral ID Status Reason Start Date Expiration Date Visits Requ ested Visits Authorized [id number] 1 1 Encounter Details Date Type Department Care Team Description [facility]02[facility]2016 [facility] 02/04/2016 Bethany Fung MD Type 2 diabetes mellitus with complicati on (H); Care Unit [address] block; [address] Atrial flutter, unspecified; [address] [place], [place] Coronary artery disease invo lving ak chin coronary artery of ak chin heart with angina pectoris (H) ABELARDO DOBBINS [phone] Social History Tobacco Use Types Packs/Day Years Used Date Never Smoker Alcohol Use Standard Drinks/Week Comments Yes 0 (1 standard drink = 0.6 oz pure alcoho l) Sex Assigned at Date Recorded Not on file documented as of this encounter Last Filed Vital Signs Vital Sign Reading Time Taken Comments Blood Pressure 124/70 02/04/2016 4:00 PM CDT Pulse 86 02/04/2016 7:51 AM CDT Temperature 36.7 ??C (98.1 ??F) 02/04/2016 3:35 PM CDT Respiratory Rate 37 02/04/2016 4:00 PM CDT Oxygen Saturation 94% 02/04/2016 2:45 PM CDT Inhaled Oxygen Concentration - - Weight 134.6 kg (296 lb 11.8 02/04/2016 4:58 AM CDT Bed scale oz) Height 180.3 cm (5' 11) 02/02/2016 7:45 PM CDT Body Mass Index 41.39 02/02/2016 7:45 PM CDT documented in this encounter Discharge Summaries Maynor Joyce, - 02/04/2016 2:34 PM CDT Date of admission: 02/02/2016. Date of discharge: 02/04/2016. PRIMARY CARE PHYSICIAN: Herminia Story MD. DISCHARGE DIAGNOSES: 1. Coronary artery disease with 4-vessel bypass in 1986: The patient was initially admitted with some chest discomfort and had an angiogram showing chronically occluded left main and RCA with patent saphenous vein grafts to the LAD, diagonal, OM and PDA. He will continue with medical management including aspirin, lisinopril, metoprolol and simvastatin. 2. Five-second sinus pause: In the setting of 3 recent near-syncopal episodes. Permanent pacemaker was placed today by Dr. Smith, will follow up in Device Clinic upon discharge. 3. GERD (gastroesophageal reflux disease): He continues on Protonix and will follow up with GI as anoutpatient. 4. Type 2 diabetes: Continues on metformin and glipizide. 5. Morbid obesity with BMI of 41. DISCHARGE MEDICATIONS: 1. Acyclovir 400 mg 3 times daily as needed for cold sores. 2. Aspirin 81 mg at bedtime. 3. Celebrex 200 mg b.i.d. 4. Fenofibrate 160 mg daily. 5. Glipizide 5 mg b.i.d. before meals. 6. Lisinopril 20 mg daily. 7. Metformin 1000 mg b.i.d. with meals to restart on Monday 02/05. 8. Nitroglycerin 0.4 mg sublingual every 5 minutes p.r.n. chest pain. 9. Protonix 40 mg every morning. 10. Pravastatin 80 mg at bedtime. 11. Toprol-XL 50 mg daily. ALLERGIES: No known drug allergies. DISPOSITION AND FOLLOWUP: 1. Discharge to home. 2. Followup with PCP in 1 week. 3. Follow up with Cardiology Device Clinic as scheduled. 4. Follow up PCP to discuss referral to GI physician. PENDING TEST RESULTS: None. CONSULTANTS: Dr. Singleton of Cardiology and Dr. Smith of Electrophysiology. PROCEDURES AND INVESTIGATIONS: 1. Angiography on 02/03/2016 showing chronically occluded left main and RCA as well as patent saphenous vein grafts to the LAD, diagonal, OM and PDA. 2. Permanent pacemaker placement on 02/03. HOSPITAL COURSE: Mr. Radha Farooq is a 75-year-old male with a past medical history significant for coronary artery disease with previous bypass, hypertension, dyslipidemia, type 2 diabetes who presents to the Emergency Department on 02/01 with concerns for chest pain. I refer you to the admission H &P dictated by Dr. Pina on admission for full details. Briefly the patient came in with chest fullness which he thought was similar to some of the GI symptoms he had had previously. He did have an elevated troponin at roughly 0.4 and so was started on heparin and nitroglycerin drips. He was admitted to [facility] where he was seen by Cardiology and underwent angiography the following day. This showed chronically occluded ak chin vessels with patent saphenous vein grafts as discussed above. The plan was for medical management. The night after the angiography the patient was noted to have a 5-second pause. The patient was asymptomatic from this, but upon further discussion with him, he notes 3 episodes of near-syncope in the few weeks nae ding up to his hospitalization. Electrophysiology was consulted and the patient underwent pacemaker implantation on the day of discharge. Cardiology has cleared him for discharge to home and followup in the Device Clinic following discharge. He will continue on his typical RECORDINGS LIBRARIAN medication regimen. CODE STATUS: Full code. TOTAL DISCHARGE TIME: Greater than 30 minutes. MAYNOR JOYCE DO MT: [id number] Name: RADHA FAROOQ Account: [id number] : 1940 Admit Date: Discharge Date: 02/04/2016 Document: [id number] cc: Ankur Coleman MD documented in this encounter Discharge Instructions Discharge InstructionsMaynor Joyce DO - 02/04/2016 9:52 AM CDT Ok to restart metformin on 02/05 AttachmentsThe following attachments cannot be sent through Care Everywhere. PACEMAKER IMPLANTATION, DISCHARGE INSTRUCTIONS FOR (ARABIC)PACEMAKER, LIVING WITH (ARABIC)documented in this encounter Medications at Time of [...] for Sinoatrial node moderate pain dysfunction (H) aspirin 81 MG tablet Take 81 mg by mouth 0 03/28/2016 At Bedtime celecoxib (CELEBREX) 200 Take 200 mg by mouth 0 06/30/2021 MG capsule 2 times daily GLIPIZIDE PO Take 5 mg by mouth 2 0 times daily (before meals) lisinopril Take 1 tablet (20 90 tablet 5 12/20/2015 016 (PRINIVIL,ZESTRIL) 20 MG mg) by mouth daily tabletIndications: Benign essential hypertension metFORMIN (GLUCOPHAGE) Take 2 tablets 60 tablet 0 6 06/30/2021 500 MG tabletIndications: (1,000 mg) by mouth Type 2 diabetes mellitus 2 times daily (with with complication (H) meals) metoprolol (TOPROL-XL) 50 Take 1 tablet (50 0 03/201603/28/2016 MG 24 hr mg) by mouth daily tabletIndications: Atrial flutter, unspecified, Coronary artery disease involving ak chin coronary artery of ak chin heart with angina pectoris (H) NITROGLYCERIN SL Place 0.4 mg under 0 12/29/2016 the tongue every 5 minutes as needed PANTOPRAZOLE SODIUM PO Take 40 mg by mouth 0 07/07/2020 every morning (before breakfast). pravastatin (PRAVACHOL) Take 80 mg by mouth 0 06/30/2021 80 MG tablet At Bedtime documented as of this encounter Progress Notes Ankur Smith MD - 02/04/2016 1:55 PM CDT Dual chamber pacer implantation. No complications. Pt was in atrial flutter before implantation, likely atypical. Paced to sinus rhythm with frequent PACs. He may need anticoagulation if future pacer interrogation shows atrial fib/flutter. May be discharged around 5-6PM today. Willi Colmenares MD - 02/04/2016 1:47 PM CDT [facility] Cardiology Progress Note Date of Service (when I saw the patient): 02/04/2016 Radha Farooq is a 75 year old male who was admitted on 02/02/2016. Assessment and Plan A: 1)Stable cardiac status at present 2)Sinus arrest-5-6 seconds with prior OP hx of near syncopal episodes at home; metoprolol xl(anti-anginal Rx) held 3)ASCVD s/p slight troponin elevation and cath showing patent grafts with no intervention performed; medical therapy advised. P: 1)Telemetry 2)EP consult appreciated with permanent pacemaker planned 3)Continue antianginal therapy Time Spent: > than 30 minutes of complex medical management of antianginal Rx and rhythm management. Willi Colmenares MD [facility] Interval History S: Doing well; no cp, sob; feeling better; had 5-6 second pause(sinus arrest) last PM on monitor Physical Exam Vitals: Blood pressure 139/89, pulse 86, temperature 97.6 ??F (36.4 ??C), temperature source Oral, resp. rate 16, height 1.803 m (5' 11), weight 134.6 kg (296 lb 11.8 oz), SpO2 98 %., Heart Rate: 88, Wt Readings from Last 4 Encounters: 02/04/16 134.6 kg (296 lb 11.8 oz) 12/20/15 138.347 kg (305 lb) 12/10/14 142.429 kg (314 lb) 02/27/13 145.786 kg (321 lb 6.4 oz) I/O last 3 completed shifts: In: 1033.71 [P.O.:240; I.V.:793.71] Out: 3200 [Urine:3200] Lungs: Decreased BS at bases with few crackles Heart: RR, S4, 1-2/6 systolic murmur Extremities: trace-1+ edema Medications ??? NaCl 30 mL/hr at 02/04/16 1214 ??? DOBUTamine ??? fentanyl drip ??? HEParin ??? heparin (porcine) ??? heparin (porcine) ??? isoproterenol ??? midazolam ??? - MEDICATION INSTRUCTIONS - ??? Continuing AMINTA inhibitor/ARB from home medication list OR AMINTA inhibitor/ARB order already placedduring this visit ??? - MEDICATION INSTRUCTIONS - ??? - MEDICATION INSTRUCTIONS - ??? sodium chloride (PF) 3 mL Intracatheter Q8H ??? nitroglycerin ??? pantoprazole 20 mg Oral QAM AC ??? insulin glargine 7 Units Subcutaneous At Bedtime ??? sucralfate 1 g Oral TID AC ??? sodium chloride (PF) 3 mL Intracatheter Q8H ??? aspirin EC 81 mg Oral Daily ??? fenofibrate 160 mg Oral Daily ??? lisinopril 20 mg Oral Daily ??? pravastatin 80 mg Oral At Bedtime ??? insulin aspart 1-10 Units Subcutaneous TID AC ??? insulin aspart 1-7 Units Subcutaneous At Bedtime All laboratory data reviewed ROUTINE IP LABS (Last four results) BMP Recent Labs Lab 02/03/16 0450 NA 138 POTASSIUM 4.1 CHLORIDE 103 AFRICA 8.4* CO2 26 BUN 27 CR 1.02 GLC 167* CBC Recent Labs Lab 02/04/16 1203 02/02/16 2140 WBC 6.4 10.3 RBC 4.80 4.63 HGB 15.8 15.2 HCT 46.8 45.0 MCV 98 97 MCH 32.9 32.8 MCHC 33.8 33.8 RDW 13.6 13.6 PLT 206 196 INR Recent Labs Lab 02/04/16 1203 INR 1.00 Lab Results Component Value Date TROPI 0.395* 02/03/2016 TROPI 0.441* 02/03/2016 TROPI 0.407* 02/02/2016 TROPI 5.030* 02/02/2012 TROPI 4.260* 02/01/2012 EKG results: Reviewed if available. Performed on 02/04/2016 Results: Sinus rhythm Anel Patterson RN - 02/04/2016 1:04 PM CDT Pt to EP lab at 1300. Report given to SIENNA Kemp. Harrison Rodriguez RN - 02/04/2016 11:37 AM CDT Met wt pt, his , and two daughters to discuss DC planning adn F/U appt. Pt's goal is to DC home wt . He states his and daughters are very helpful and supportive. F/U appt wt PCP has been arranged for 02/07. Pt and family aware. Plan is PPM placement this PM and then DC home it pt medicallystable. Pt and family verbalized understanding and have no further questions. Ankur Smith MD - 02/04/2016 11:20 AM CDT Pt changed his mind and now wants to have pacemaker implant instead of event monitor. Agree to proceed. Scheduled for this afternoon. Ankur Smith MD - 02/04/2016 9:41 AM CDT Admitted for persistent chest pain 1 week. Mild troponin elevation. Angiography showed patent grafts. Had previous atrial flutter ablation. Asystole was found on telemetry for about 5 seconds. Had near syncope 3 times at home. Metoprolol stopped. Pt was offered pacemaker vs event monitor. He preferred event monitor. Will see him in cardiology clinic in 1 month. Since his pain was worse after swallowing and relieved by GI cocktail, outpatient GI consultation may be beneficial. Pt can go home on event monitor today. Not to drive for 1 month. Maynor Francis DO - 02/04/2016 9:17 AM CDT [facility] Hospitalist Progress Note Maynor Joyce D.Jenae Date of service (Date I saw patient): 02/04/2016 Assessment and Plan Radha Farooq is a 75 year old male who was directly admitted from [facility] on 02/02/16 for evaluation of epigastric discomfort, chest pain and elevated troponin concerning for NSTEMI in the setting of known CAD. CAD with 4 vessel bypass 1987 with NSTEMI: Initially presented in [place] with epigastric discomfort and found to have elevated troponin. Troponin stable around 0.4. Angiogram 02/02 showed occluded LMand RCA, patent to LAD, Diagonal, OM and PDA. - cards recommends medical management - Continue RECORDINGS LIBRARIAN ASA, lisinopril, and simvastatin - metoprolol on hold as of 02/02 given five second pause - Appreciate Cardiology assistance. Five second sinus pause: noted on tele evening of 02/02. On toprol XL 50 mg daily RECORDINGS LIBRARIAN. -metoprolol dc 02/02 -EP consult pending GERD: States chest pain symptoms started as what he thought was GERD but no improvement with tums. Did note that GI cocktail helped a lot - Continue Protonix - Maalox and Simethicone available prn. Will also trial Carafate - If cardiac work-up negative or symptoms persist despite cardiac intervention would benefit from GIevaluation +/- EGD as outpatient DM-2, uncontrolled?? A1C 9.0 (7.9 in 10/16 per CareEverywhere) RECORDINGS LIBRARIAN regimen Metformin 1000 mg/d and Glipizide 5 mg bid - Oral agents on hold pending further plan by EP. Will need to hold Metformin for 48 hrs post angio - continue Lantus 7 units at hs while inpatient. Morbid Obesity - BMI 41.5 DVT Prophylaxis: Heparin drip Code Status: Full Code Disposition: Pending EP work up -discussed with cardiology and EP Interval History Had angiogram yesterday with plans for medical management. Had a 5 second pause on tele last night. Describes having 3 episodes in the past couple weeks where he gets dizzy and lightheaded while sitting on the couch without passing out. This passes quickly. No chest pain or shortness of breath. Tolerating diet. -Data reviewed today: I reviewed all new labs and imaging over the last 24 hours. I personally reviewed no images or EKG's today. Physical Exam Heart Rate: 88, Blood pressure 139/89, pulse 86, temperature 97.6 ??F (36.4 ??C), temperature sourceOral, resp. rate 16, height 1.803 m (5' 11), weight 134.6 kg (296 lb 11.8 oz), SpO2 98 %. Filed Vitals: 02/02/16 1945 02/03/16 0500 02/04/16 0458 Weight: 134.628 kg (296 lb 12.8 oz) 135.172 kg (298 lb) 134.6 kg (296 lb 11.8 oz) Vital Signs with Ranges Temp: [97.6 ??F (36.4 ??C)-98.1 ??F (36.7 ??C)] 97.6 ??F (36.4 ??C) Pulse: [86] 86 Heart Rate: [81-90] 88 Resp: [12-25] 16 BP: (104-139)/(52-89) 139/89 mmHg SpO2: [94 %-98 %] 98 % I/O's Last 24 hours I/O last 3 completed shifts: In: 1033.71 [P.O.:240; I.V.:793.71] Out: 3200 [Urine:3200] Constitutional: awake, alert, cooperative Respiratory: Clear to auscultation bilaterally, no crackles or wheezing noted. Good air exchange. Cardiovascular: Regular rate and rhythm. No murmur, rub or gallop noted. GI: Positive bowel sounds, soft, non-distended, non-tender. No masses or organomegaly noted. Musculoskeletal: Full range of motion. Tone is normal. No acute abnormalities. Neurologic: Awake, alert and oriented to name, place and time. Cranial nerves II-XII are grossly intact. Medications All medications were reviewed. ??? - MEDICATION INSTRUCTIONS - ??? Continuing AMINTA inhibitor/ARB from home medication list OR AMINTA inhibitor/ARB order already placedduring this visit ??? - MEDICATION INSTRUCTIONS - ??? - MEDICATION INSTRUCTIONS - ??? pantoprazole 20 mg Oral QAM AC ??? insulin glargine 7 Units Subcutaneous At Bedtime ??? sucralfate 1 g Oral TID AC ??? sodium chloride (PF) 3 mL Intracatheter Q8H ??? aspirin EC 81 mg Oral Daily ??? fenofibrate 160 mg Oral Daily ??? lisinopril 20 mg Oral Daily ??? pravastatin 80 mg Oral At Bedtime ??? insulin aspart 1-10 Units Subcutaneous TID AC ??? insulin aspart 1-7 Units Subcutaneous At Bedtime Data Recent Labs Lab 02/03/16 0450 02/03/16 0140 02/02/16 2140 WBC -- -- 10.3 HGB -- -- 15.2 MCV -- -- 97 PLT -- -- 196 NA 138 -- -- POTASSIUM 4.1 -- -- CHLORIDE 103 -- -- CO2 26 -- -- BUN 27 -- -- CR 1.02 -- -- ANIONGAP 9 -- -- AFRICA 8.4* -- -- GLC 167* -- -- TROPI 0.395* 0.441* 0.407* No results found for this or any previous visit (from the past 24 hour(s)). Maksim Herman PA-C - 02/03/2016 9:58 AM CDT [facility] Hospitalist Progress Note Date of Service (when I saw the patient): 02/03/2016 Assessment and Plan Radha Farooq is a 75 year old male who was directly admitted from [facility] on 02/02/16 for evaluation of epigastric discomfort, chest pain and elevated troponin concerning for NSTEMI in the setting of known CAD. CAD with 4 vessel bypass 1987 with NSTEMI - Initially presented in [place] with epigastric discomfort and found to have elevated troponin - Trop trend 0.407--0.411--0.395 - Continues on heparin and nitroglycerin drip as well as RECORDINGS LIBRARIAN ASA, lisinopril, Toprol XL and simvastatin -Appreciate Cardiology assistance. Plan for angiogram later today GERD - H/o gerd managed with Protonix. Denies previous history of EGD - States chest pain symptoms started as what he thought was GERD but no improvement with tums. Did note that GI cocktail last pm helped a lot - Continue Protonix - Maalox and Simethicone available prn. Will also trial Carafate - If cardiac work-up negative or symptoms persist despite cardiac intervention would benefit from GIevaluation +/- EGD as outpatient DM-2, uncontrolled A1C 9.0 (7.9 in 10/16 per CareEverywhere) - RECORDINGS LIBRARIAN regimen Metformin 1000 mg/d and Glipizide 5 mg bid - Checks blood glucose every other day. Discussed increased A1C and concern for uncontrolled DM in the setting of DM. Does admit he has been a bit more lax in diet in recent months - Oral agents on hold. Will need to hold Metformin for 48 hrs post angio - Will order Lantus 7 units at hs while inpatient. Consider adjustment of DM regimen at d/c vs closePCP follow up and improvement in diet modifications Morbid Obesity - BMI 41.5 DVT Prophylaxis: Heparin drip Code Status: Full Code Disposition: Pending angiogram and work-up per Cardiology Maksim Herman Interval History Doing well. No further symptoms of chest pain. Notes improvement after GI cocktail. Denies SOB. Discussed A1C and DM. -Data reviewed today: I reviewed all new labs and imaging results over the last 24 hours. I personally reviewed no images or EKG's today. Physical Exam Temp: 97.8 ??F (36.6 ??C) Temp src: Oral BP: 96/71 mmHg Heart Rate: 92 Resp: 17 SpO2: 98 % O2 Device: Nasal cannula Oxygen Delivery: 2 LPM Filed Vitals: 02/02/16 1945 02/03/16 0500 Weight: 134.628 kg (296 lb 12.8 oz) 135.172 kg (298 lb) Vital Signs with Ranges Temp: [97.8 ??F (36.6 ??C)-98 ??F (36.7 ??C)] 97.8 ??F (36.6 ??C) Heart Rate: [80-92] 92 Resp: [14-31] 17 BP: (80-118)/(39-93) 96/71 mmHg SpO2: [94 %-99 %] 98 % I/O last 3 completed shifts: In: 801.94 [I.V.:801.94] Out: 325 [Urine:325] Constitutional: Alert, resting comfortably in NAD Respiratory: Normal effort, symmetric expansion, no crackles or wheezing Cardiovascular: RRR no murmurs GI: Non distended, normal bowels sounds, no tenderness or guarding MSK: LE without edema. Dorsalis pedis pulse palpated bilaterally. Skin/Integumen: Clear Neuro: CN II-XII grossly intact Psych: Alert and oriented x 3. Normal affect Medications ??? NaCl 150 mL/hr at 02/03/16 0935 ??? - MEDICATION INSTRUCTIONS - ??? NaCl 75 mL/hr at 02/03/16 0805 ??? nitroglycerin 0.17 mcg/kg/min (02/03/16 0858) ??? Continuing AMINTA inhibitor/ARB from home medication list OR AMINTA inhibitor/ARB order already placedduring this visit ??? - MEDICATION INSTRUCTIONS - ??? - MEDICATION INSTRUCTIONS - ??? heparin 1,350 Units/hr (02/03/16 0804) ??? sodium chloride (PF) 3 mL Intracatheter Q8H ??? [START ON 02/04/2016] pantoprazole 20 mg Oral QAM AC ??? fenofibrate 160 mg Oral Daily ??? lisinopril 20 mg Oral Daily ??? metoprolol 50 mg Oral Daily ??? pravastatin 80 mg Oral At Bedtime ??? sodium chloride (PF) 3 mL Intracatheter Q8H ??? aspirin 325 mg Oral Daily ??? insulin aspart 1-10 Units Subcutaneous TID AC ??? insulin aspart 1-7 Units Subcutaneous At Bedtime Data Recent Labs Lab 02/03/16 0450 02/03/16 0140 02/02/16 2140 WBC -- -- 10.3 HGB -- -- 15.2 MCV -- -- 97 PLT -- -- 196 NA 138 -- -- POTASSIUM 4.1 -- -- CHLORIDE 103 -- -- CO2 26 -- -- BUN 27 -- -- CR 1.02 -- -- ANIONGAP 9 -- -- AFRICA 8.4* -- -- GLC 167* -- -- TROPI 0.395* 0.441* 0.407* No results found for this or any previous visit (from the past 24 hour(s)). Associated attestation - Maynor Joyce DO - 02/03/2016 4:07 PM CDT Physician Attestation I, Maynor Joyce, saw and evaluated Radha Farooq as part of a shared visit. I have reviewed and discussed with the advanced practice provider their history, physical and plan. I personally reviewed the vital signs and medications. My parish history or physical exam findings: pt resting comfortably in the chair. No further chest pain. Waiting for angiogram. Parish management decisions made by me: awaiting angiogram today. Continue with current therapy. Appreciate cardiology consult. Maynor Joyce Date of Service (when I saw the patient): 02/03/2016 Siddharth Singleton DO - 02/03/2016 9:27 AM CDT CONSULT DICTATED 75YO MALE WITH H/O REMOTE 4 VCABG, NSTEMI ADMITTED FOR ATYPICAL CP AND ELEVATED CARDIAC ENZYMES. RECOMMEND CORONARY ANGIOGRAM FOR ISCHEMIC EVALUATION. CXR RESULTS ARE NOT AVAILABLE FROM [facility] AND NEED TO BE REVIEWED-PENDING. Addendum: CXR results received from [place] radiology. Radiology read- no acute abnormality. documented in this encounter H&P Notes Blane Pina MD - 02/02/2016 8:59 PM CDT PRIMARY CARE PHYSICIAN: Herminia Coleman MD CHIEF COMPLAINT: Radha Farooq is a 75-year-old male who was admitted with chest pain. HISTORY OF PRESENT ILLNESS: The patient states that for approximately the last week he has had some intermittent chest fullness, which he describes as feeling like he needs to burp. The patient also describes some discomfort with swallowing, although he does not describe it as outright pain. Denies that food appears to get stuck. Denies regurgitation. The patient has been taking Tums and Maalox intermittently with only partial relief of symptoms. The patient also states that he has noticed increasing shortness of breath with exertion. He has been taking nitroglycerin for this with again only partial relief of dyspnea. There is not any associated nausea or diaphoresis with symptoms. Approximately 8:00 this morning, the patient again had this epigastric fullness. It has been present since that time. There is no associated shortness of breath, diaphoresis or nausea symptoms. Epigastric discomfort does not radiate to his shoulders, neck, jaw or back. He presented to an outside Emergency Department.He was given Mylanta without any relief. He was then noted to have a troponin of approximately 0.3. He was then transferred to [facility] for further evaluation. Prior to transfer, thepatient was started on heparin and nitroglycerin. Currently, patient states that his pain has remained at a 5/10 without any improvement following the initiation of heparin and nitroglycerin. PAST MEDICAL HISTORY: 1. Hypertension. 2. Hyperlipidemia. 3. Coronary artery disease. 4. Atrial flutter, status post ablation. 5. History of right eye melanoma, status post treatment at the [facility]. 6. Metabolic syndrome. 7. Diabetes mellitus type 2. 8. Coronary artery bypass graft in 1985 x4. 9. History of NSTEMI in 2011. MEDICATIONS PRIOR TO ADMISSION: 1. Metformin 1000 mg twice daily. 2. Glipizide 5 mg twice daily. 3. Celebrex 200 mg twice daily. 4. Aspirin 81 mg daily. 5. Toprol 50 mg daily. 6. Lisinopril 20 mg daily. 7. Fenofibrate 160 mg daily. 8. Protonix 40 mg daily. 9. Nitroglycerin sublingual as needed. 10. Pravachol 80 mg at bedtime. 11. Acyclovir 400 mg 3 times daily as needed. ALLERGIES: None. SOCIAL HISTORY: Patient is , lives with his . He is a nonsmoker with occasional alcohol use. FAMILY HISTORY: Heart disease in patient's father, otherwise noncontributory. REVIEW OF SYSTEMS: Complete comprehensive review of systems was performed and was negative except asabove. PHYSICAL EXAMINATION: VITAL SIGNS: Blood pressure 111/79, temperature 98.5 degrees, pulse 83, respiratory rate 20, % on room air. GENERAL: This is a morbidly obese male resting in bed. HEENT: Head appears atraumatic, normocephalic. Eyes: Sclerae noninjected, anicteric. Oral mucosa moist without lesions or exudates. NECK: Supple without any lymphadenopathy. LUNGS: Clear to auscultation bilaterally. HEART: Regular rate and rhythm without murmurs, gallops, rubs. ABDOMEN: Bowel sounds positive. Soft, nontender, nondistended, no hepatosplenomegaly. MUSCULOSKELETAL: Normal muscle mass and tone. SKIN: Shows no rashes. LYMPHATIC: No peripheral edema, no lymphadenopathy. NEUROLOGIC: Cranial nerves II-XII are intact. Strength in all 4 extremities normal, coordination normal. Reflexes normal and symmetrical. EKG viewed by myself demonstrates normal sinus rhythm. ASSESSMENT AND PLAN: A 75-year-old male who was admitted with chest pain and elevated troponin. 1. Chest pain concerning for acute coronary syndrome: This patient is being admitted to the CCU. Will follow serial troponins. Continue patient on aspirin, metoprolol, statin, heparin drip and nitroglycerin drip. Will consult Cardiology in the morning. 2. Hypertension: Continue Toprol and lisinopril. 3. Hyperlipidemia: Continue pravastatin. Consider changing to atorvastatin. Will check a fasting lipid panel in the morning. 4. Diabetes: Hold glipizide and metformin. Place patient on insulin sliding scale. 5. Gastroesophageal reflux disease: Continue patient on Protonix. There is a possibility that the patient's symptoms may be due to gastroesophageal reflux disease. Will treat with a GI cocktail tonightand see if patient's symptoms responded. CODE STATUS: Patient is full code. BLANE PINA MD MT: Name: RADHA FAROOQ Account: [id number] : 1940 Admitted: [id number] Document: [id number] cc: Herminia Coleman MD documented in this encounter Procedure Notes Juan José Person MD - 02/03/2016 4:22 PM CDT Occluded RCA, LM. Patent SVG LAD,Diagonal, OM, PDA. Medical management recommended documented in this encounter Consult Notes Ankur Smith MD - 02/04/2016 9:57 AM CDT CARDIOLOGY CONSULTATION REQUESTING PHYSICIAN: Maynor Joyce DO REASON FOR CONSULTATION: Cardiac asystole. HISTORY OF PRESENT ILLNESS: Mr. Radha Farooq is a 75-year-old white male with a history of coronary artery disease and previous CABG. Echocardiography in 2011 reported normal LV function. The patient presented with symptomatic atrial flutter with rapid ventricular rate and underwent catheter ablation on 02/27/2013 by me. He was last seen by me in the Cardiology Clinic in 11/2015. At that time, he wasdoing well. The patient had persistent mid sternal chest pain for the last week. The pain was described as moderate to severe. It was not associated with diaphoresis or shortness of breath. Swallowing of the food appeared to aggravate the pain. There was also a sensation that sometimes food appeared to be stuck in his esophagus. He did not have any vomiting or nausea. The patient was evaluated on 02/03/2016 withelevated troponin. He was sent for coronary angiography that showed occluded ak chin RCA, but the bypass graft was patent. After admission, he did receive a GI cocktails, and his chest pain has been relieved. At the present time, he has no chest pain, shortness of breath. He was found to have 1 episode of asystole for about 5 seconds on telemetry. He was at bed rest without apparent symptom. However, on inquiry, he reported 3 episodes of near-syncope at home. He stated that he was sitting, eating or watching TV when he briefly had a severe spell of dizziness for a few seconds. He did not lose consciousness completely. He did not feel any heart racing. PAST MEDICAL HISTORY: Hypertension, history of eye cancer with radiation, sleep apnea. FAMILY HISTORY: Noncontributory to sudden cardiac . SOCIAL HISTORY: He does not smoke or abuse alcohol. He is full code. REVIEW OF SYSTEMS: A comprehensive review of systems showed no fever, cough or diarrhea. He did not have history of stroke and he has not had any falls. CURRENT MEDICATIONS: 1. Aspirin 81 mg p.o. daily. 2. Fenofibrate 160 mg p.o. daily. 3. Insulin as needed. 4. Lisinopril 20 mg p.o. daily. 5. Protonix 20 mg p.o. daily. 6. Pravachol 80 mg p.o. daily. 7. Carafate 1 gram p.o. t.i.d. ALLERGIES: None. PHYSICAL EXAMINATION: GENERAL: He is alert and oriented without acute distress. VITAL SIGNS: Blood pressure 139/89, heart rate 86 beats per minute, temperature 97.6 degrees, oxygensaturation 98% on nasal cannula. HEENT: Eyes, ears, nose, throat were unremarkable. SKIN: There was no skin rash or lymph node enlargement. NECK: The jugular vein was not extended. LUNGS: Clear. HEART: Rhythm was regular and heart sounds were normal without murmur. ABDOMEN: Severe obesity. EXTREMITIES: There was no pedal edema. NEUROLOGIC: Showed no focal deficit. His EKG on telemetry showed asystole of about 5 seconds. The underlying atrial rhythm appeared to beatrial fib/flutter. However, the atrial arrhythmia was very brief, which was only observed during the asystole. ASSESSMENT AND RECOMMENDATIONS: Mr. Farooq is a 75-year-old white male with a history of coronary artery disease and preserved ejection fraction. He had previous atrial flutter ablation. The patient presented with chest pain with a mild troponin elevation. Repeat coronary angiography showed patent grafts. His chest pain has been relieved. The patient may benefit from Gastroenterology consultation. He has had 1 episode of asystole during atrial tachyarrhythmia. He also had 3 spells with near-syncope at home. The patient was given the option of receiving pacemaker implantation versus going home with an EKG event monitor.The patient preferred EKG event monitor. I agree for discontinuation of metoprolol because of asystole. Since he is at risk of possible syncope, he is asked not to drive a motor vehicle for now. We will see him in Cardiology Clinic to review the results of the EKG event monitor in 1month. ANKUR SMITH MD MT: [id number] Name: RADHA FAROOQ MRN: [id number] Account: [id number] : 1940 Consult Date: 02/04/2016 Document: [id number] cc: Maynor Joyce DO Siddharth Singleton DO - 02/03/2016 9:27 AM CDT CARDIOLOGY CONSULTATION DATE OF SERVICE: 02/03/2016. REQUESTING PHYSICIAN: Blane Pina MD. REASON FOR REFERRAL: Chest pain and elevated cardiac enzymes. HISTORY OF PRESENT ILLNESS: I have been asked to evaluate Radha Farooq, a very pleasant 75-year-old male for the above. He was initially seen at [facility] emergency room for the above symptoms and was transferred here for further evaluation and management. He has an underlying history of coronary artery disease with previous 4-vessel bypass graft in 1986, he had a non-ST elevation myocardial infarction in 2011, per his history. He did not have any stents placed at that time. He also has a history of peripheral vascular disease and atrial arrhythmias with previous ablation procedure. He has seen Dr. Darshan Smith in our clinic and recently saw him about a month ago. At that time, in reviewing Dr. Smith's note, the patient had been complaining of some chest pain symptoms, which he described as anginal. Mr. Farooq presented to [facility] after experiencing what he thought was acid reflux. He had had some pressure or fullness in the epigastric area. He found some partial relief with belching and he has had some partial relief with baking soda and water. He has not attempted to take sublingual nitroglycerin for his symptoms. At [facility] he was noted to have elevated cardiac enzymes; therefore, he was transferred here for further care and evaluation. I did review the electrocardiogram from his admission which demonstrates a sinus rhythm with a prolonged IN interval. There is no acute STor T-wave abnormalities seen on the EKG. His initial troponin at [facility] was 0.26. He presented with continued chest pain at [facility] and was admitted. His troponin measurements co ntinued to rise to a peak of 0.407 and then the last one has come down a little bit to 0.395. He is currently pain-free after being given what sounds like a GI cocktail. He is also, however, on IV nitroglycerin and heparin at this time. In talking with him, he does seem to have a little bit of memory issues. He did not recall discussing chest pains with Dr. Smith last month. He denies any recent cardiactesting and in reviewing his chart, I do not see that he has had a stress test at any time in the last 3 years. PAST MEDICAL HISTORY: Hypertension, hyperlipidemia, coronary artery disease with previous 4-vessel CABG in 1986, non-ST elevation myocardial infarction in 2011, no record of revascularization procedurewith this, atrial flutter and post ablation procedure, type 2 diabetes, history of melanoma of the right eye. MEDICATIONS ON ADMISSION: Please see H&P. Notable is Celebrex 200 mg twice a day. ALLERGIES: None. SOCIAL HISTORY: Lives with his . He is a lifelong nonsmoker, occasional alcohol use. FAMILY HISTORY: Father had a history of heart disease. REVIEW OF SYSTEMS: He has had ongoing issues with gastrointestinal distress with gaseous problems. He does take Protonix which he does not feel helps at all. He has had a sensation of fullness and somediscomfort swallowing. Once again, he describes that taking baking soda tends to help with these type of symptoms. He denies any symptoms suggestive of orthopnea or PND or difficulty breathing. He denies any claudication type symptoms. No difficulties moving his bowel or bladder. He does not recall whether he has had any evaluation of his reflux such as an EGD. The rest of the 10-point review of systems is described as above or is otherwise unremarkable. PHYSICAL EXAMINATION: VITAL SIGNS: His initial blood pressure upon arriving at [facility] demonstrated a blood pressure systolic of 111. His blood pressure here has ranged anywhere from 80-118 systolic over 39-73 diastolic.Heart rate is ranging between 80-92, respiratory rate 17-31. He is oxygenating 94% or greater on 2 liters per nasal cannula. He is afebrile. GENERAL: He is an obese male in no apparent distress, eupneic on exam and with conversation. HEENT: Head is atraumatic and normocephalic. Pupils are equal and small. Conjunctivae are clear. Oropharynx is clear. NECK: Supple and thick. I cannot appreciate jugular venous distention. I do not hear carotid bruits. CARDIOVASCULAR: Tones are regular, distant. I do not appreciate a murmur, gallop or rub. LUNGS: Clear posteriorly without wheezes or rales. ABDOMEN: Soft, obese. I do not appreciate bruits. He has diminished pulses in the lower extremities without peripheral edema. SKIN: Warm, dry without rash or jaundice. NEUROLOGIC: He is alert and oriented. There are no gross focal neurologic abnormalities noted. EKG is described as above. LABORATORY DATA: Electrolyte panel including kidney function looks normal. CBC is normal. Troponins are described as above. ASSESSMENT AND PLAN: This is a 75-year-old male with atypical chest pain symptoms, but with evidenceof a non-ST elevation myocardial infarction and previous history of coronary artery disease with 4-vessel CABG remotely. He describes his symptoms were relieved readily with a GI cocktail which suggests a gastrointestinal cause or source for his symptoms. However, he is demonstrating evidence of an acute coronary syndrome based upon his lab tests. I would recommend an ischemic evaluation. We talked about stress testing versus coronary angiogram. After discussion, he is agreeable to undergoing a coronary angiogram today. I did describe the risks, benefits and alternatives fully with him and he is agreeable to proceed. He has been n.p.o. since midnight. Metformin has been held. He declined watching the video. I will schedule him for coronary angiogram today for further evaluation. I would also recommend a change to his antacid medications with the addition of something like sucralfate or a more potent acid suppressant agent. I would continue the IV nitroglycerin and heparin drip. It is noted in his chart visit with Dr. Smith that his beta best was reduced recently because of the prolonged IN interval. We are happy to follow along in his care. Please feel free to contact me with any questions you havein regard to his care. SIDDHARTH SINGLETON DO MT: caprice Name: RADHA FAROOQ MRN: [id number] Account: [id number] : 1940 Consult Date: 02/03/2016 Document: [id number] documented in this encounter Miscellaneous Notes Plan of Care - Anel Wheatley RN - 02/04/2016 8:06 PM CDT Problem: Goal Outcome Summary Goal: Goal Outcome Summary Outcome: Adequate for Discharge Date Met: 02/04/16 Pt is A&O. Denies CP or discomfort at surgical site. Monitor shows a fib with occasional A and AV pacing. Dsg to L chest is CDI. Pt on bedrest until 1730, when Dr. Smith ok'd pt to be off bedrest. Up with SBA. Sling provided as a reminder to pt of activity restrictions following PPM placement. IVs removed and pt disconnected from monitor. All d/c instructions reviewed with pt and family members. Sent pt with rx for Tylenol #3. All questions answered. All pt's belongings accounted for. Pt left unit via w/c. Pt's dtr and to provide transport home. Provider Notification - Anel Wheatley RN - 02/04/2016 5:00 PM CDT Web paged Dr. Smith to update that pt had 15 second run of tachycardia and oddly paced beats. HR up to 127. Spoke to Dr. Smith and he states he will come look at rhythm strips. Plan of Care - Anel Patterson RN - 02/04/2016 3:40 PM CDT Problem: Individualization Goal: Patient Preferences Outcome: Improving VSS. Tele SR. Denies pain, discomfort, and SOB. Pacer placed this afternoon. Returned to unit at 1430. Off bedrest at 1830. Plan for chest xray before DC. Pt also requested GI consult outpatient. Will continue to monitor. Provider Notification - Anel Patterson RN - 02/04/2016 2:44 PM CDT MD Notification Notified Person: MD Notified Persons Name: Dr. Joyce Notification Date/Time: 02/04/16 1441 Notification Interaction: Text paged Physician Purpose of Notification: Pt family wants to talk regarding discharge. Orders Received: Comments: Plan of Care - Irish Hicks RN - 02/04/2016 7:30 AM CDT Problem: Goal Outcome Summary Goal: Goal Outcome Summary Outcome: Improving VSS, A/O, urine output good per urinal. Right groin site CDI with bandaids. Pt up with SBA. Plans for echo today and then discharge. Plan of Care - Sintia Ahuja RN - 02/03/2016 10:03 PM CDT Problem: Goal Outcome Summary Goal: Goal Outcome Summary Outcome: Improving Denies chest pain since angio Right groin site CDI Had a five second pause this evening, asymptomatic.... MD aware Plan of Care - Nieves Granado RN - 02/03/2016 1:42 PM CDT Problem: Goal Outcome Summary Goal: Goal Outcome Summary Outcome: No Change AOx4. VSS, on nitro gtt at 0.17mcg/kg/hr. Titrated down to 0.07 due to hypotension but CP began to return, able to titrate back up and patient able to tolerate. Now pain free. Plan for angio this afternoon. NPO since 02/01. SBA, voiding in urinal. 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 Plan of Care - Catherine Mak RN - 02/03/2016 7:29 AM CDT Problem: Goal Outcome Summary Goal: Goal Outcome Summary Outcome: No Change VSS. BP low at times, but pt has been laying on side so low BP's may not be accurate. Nitro gtt decreased. Heparin gtt infusing- increased with bolus, Xa at 1200. No c/o chest pain overnight, slept well. NPO for cardiology consult today. documented in this encounter Plan of Treatment Upcoming Encounters Date Type Specialty Care Team Description 06/26/2022 Ancillary Procedure Cardiology Seng Canchola MD [address] [place] [id number] (Wo rk) 08/16/2022 Ancillary Procedure Cardiology Ankur Smith MD [address] [place] [id number] (Wo rk) 08/16/2022 Office Visit Cardiology Ankur Smith MD [address] [place] [id number] (Wo rk) Scheduled Orders Name Type Priority Associated Diagnoses Order S chedule EKG 12-lead, tracing EKG Routine Enter c ondition for order only release in comm ents for 1 Occurrences sta rting 02/02/2016 Cardiac event monitor EKG Routine One ti me imaging for 1 Occurrences sta rting 02/04/2016 unti l 02/04/2016 Scheduled Referrals Name Type Priority Associated Diagnoses Order S chedule Follow-Up with Cardiac Referral Routine Sinoatrial node Ex pected: 03/06/2016 Advanced Practice dysfunction (H) (Approx imate), Provider Expires: 2016 documented as of this encounter Procedures Procedure Name Priority Date/Time Associated Diagnosis Comme nts XR CHEST POST STAT 02/04/2016 6:05 PM Second degree AV Resu lts for this PROCEDURE [place] CDT block procedure are in the results section. GLUCOSE BY METER Routine 02/04/2016 3:42 PM Sinoatrial node Re sults for this CDT dysfunction (H) procedure ar e in the results section. ECHO COMPLETE Routine 02/04/2016 3:25 PM Results for this CDT procedure are i n the results section. EKG 12-LEAD, TRACING Routine 02/04/2016 2:55 PM Second degree AV Results for this ONLY CDT block procedure are i n the results section. EP REPORT - HIM SCAN Routine 02/04/2016 2:11 PM CDT H PERM PACER DBLE Routine 02/04/2016 1:55 PM Resu lts for this LEAD CDT procedure are i n the results section. INR STAT 02/04/2016 12:03 Sinoatrial node Results for this PM CDT dysfunction (H) procedure ar e in the results section. HCG QUALITATIVE STAT 02/04/2016 12:03 Sinoatrial node Resul ts for this PM CDT dysfunction (H) procedure ar e in the results section. CBC WITH PLATELETS STAT 02/04/2016 12:03 Sinoatrial node Re sults for this PM CDT dysfunction (H) procedure ar e in the results section. GLUCOSE BY METER Routine 02/04/2016 11:57 Sinoatrial node Resu lts for this AM CDT dysfunction (H) procedure ar e in the results section. GLUCOSE BY METER Routine 02/04/2016 7:15 AM Resul ts for this CDT procedure are i n the results section. GLUCOSE BY METER Routine 02/04/2016 2:23 AM Resul ts for this CDT procedure are i n the results section. EP REPORT - HIM SCAN 02/04/2016 12:00 AM CDT GLUCOSE BY METER Routine 02/03/2016 9:13 PM Resul ts for this CDT procedure are i n the results section. GLUCOSE BY METER Routine 02/03/2016 5:17 PM Resul ts for this CDT procedure are i n the results section. HEART CATH LEFT Routine 02/03/2016 4:25 PM Result s for this HEART CATH CDT procedure are i n the results section. ACTIVATED CLOTTING Routine 02/03/2016 4:14 PM Res ults for this TIME POCT CDT procedure are i n the results section. HEPARIN 10A LEVEL Timed 02/03/2016 12:05 Result s for this PM CDT procedure are i n the results section. GLUCOSE BY METER Routine 02/03/2016 12:04 Results for this PM CDT procedure are i n the results section. GLUCOSE BY METER Routine 02/03/2016 7:12 AM Resul ts for this CDT procedure are i n the results section. TROPONIN I Routine 02/03/2016 4:50 AM Results f or this CDT procedure are i n the results section. LIPID REFLEX TO Routine 02/03/2016 4:50 AM Result s for this DIRECT LDL PANEL CDT procedure a re in the results section. HEMOGLOBIN A1C Routine 02/03/2016 4:50 AM Results for this CDT procedure are i n the results section. HEPARIN 10A LEVEL Routine 02/03/2016 4:50 AM Resu lts for this CDT procedure are i n the results section. BASIC METABOLIC Routine 02/03/2016 4:50 AM Result s for this PANEL CDT procedure are i n the results section. TROPONIN I Timed 02/03/2016 1:40 AM Results f or this CDT procedure are i n the results section. TROPONIN I Timed 02/02/2016 9:40 PM Results f or this CDT procedure are i n the results section. CBC WITH PLATELETS STAT 02/02/2016 9:40 PM Res ults for this CDT procedure are i n the results section. GLUCOSE BY METER Routine 02/02/2016 9:12 PM Resul ts for this CDT procedure are i n the results section. documented in this encounter Results XR Chest 1 View Post Procedure (02/04/2016 6:05 PM CDT) Anatomical Region Laterality Modality Chest Computed Radiography Specimen (Source) Anatomical Location Collection Method / Collectio n Time Received Time / Laterality Volume Impressions 02/04/2016 8:01 PM CDT IMPRESSION: Left cardiac device. No pneumothorax is seen. LAYNE HUERTAS MD Narrative 02/04/2016 8:01 PM CDT XR CHEST POST PROCEDURE ??02/04/2016 6:05 PM HISTORY: ??Post procedure, Atrioventricu lar block, second degree COMPARISON: Film performed on 02/01/2012 FINDINGS: ??A left cardiac device is in place. Leads appear to be in good position. No pneumothorax is seen. Patient is status post midline sternotomy. Lungs appear clear. Procedure Note Barron Huertas MD - 02/04/2016For matting of this note might be different from the original. XR CHEST POST PROCEDURE 02/04/2016 6:05 PM HISTORY: Post procedure, Atrioventricula r block, second degree COMPARISON: Film performed on 02/01/2012 FINDINGS: A left cardiac device is in pl aminta. Leads appear to be in good position. No pneumothorax is seen. Patient is status post midline sternotomy. Lungs appear clear. IMPRESSION: Left cardiac device. No pneu mothorax is seen. LAYNE HUERTAS MD Ankur Smith MD IMG DIAGNOSTIC IMAGING ORDER ANN (ABNORMAL) Glucose by meter (02/04/2016 3:42 PM CDT) P athologist Signature Glucose 129 (H) 70 - 99 POINT OF CARE mg/dL TEST, GLUCOSE Specimen Anatomical Collection Method Collection Time Receive d Time (Source) Location / / Volume Laterality 02/04/2016 3:42 PM 6 3:45 CDT PM CDT Blane Pina MD [facility] POCT Performing Organization Address City/State/ZIP Code Phon e Number FV POINT OF CARE TEST, GLUCOSE POINT OF CARE TEST, GLUCOSE Echocardiogram Complete (02/04/2016 3:25 PM CDT) Anatomical Region Laterality Modality Echocardiography Specimen (Source) Anatomical Collection Method Collection Time Re ceived Time Location / / Volume Laterality 02/04/2016 1:04 PM CDT Narrative 02/04/2016 4:07 PM CDT Interpretation Summary ?Version 2 [facility] Echocardiography Laboratory [address] [place], [place] [id number] Name: RADHA FAROOQ : 1940 Study Date: 02/04/2016 01:04 PM Age: 75 yrs Gender: Male Patient Location: [facility] Reason For Study: Chest Pain Ordering Physician: MAKSIM HERMAN Referring Physician: HERMINIA COLEMAN Performed By: Slava Mittal RDCS BSA: 2.5 m2 Height: 71 in Weight: 296 lb HR: 71 BP: 104/70 mmHg Procedure Complete Portable Echo Adult. Contrast L umason. Interpretation Summary The left ventricle is normal in size. Th ere is mild concentric left ventricular hypertrophy. Left ventricula r systolic function is low normal. The visual ejection fraction is estimate d at 50-55%. There is no thrombus seen in the left ventricle. The right ventricle is normal size. Ther e is a catheter/pacemaker lead seen in the right ventricle. The right ventri cular systolic function is normal. The left atrium is mildly dilated. Right atrial size is normal. Trace mitral and tricuspid regurgitation . Mild aortic root dilatation. No pericardial effusion. In comparison to the previous report viridiana ed 02/01/2012, the patient is now status post pacemaker implantation. Left Ventricle The left ventricle is normal in size. Th ere is mild concentric left ventricular hypertrophy. Left ventricula r systolic function is low normal. The visual ejection fraction is estimate d at 50-55%. There is no thrombus seen in the left ventricle. Right Ventricle The right ventricle is normal size. Ther e is a catheter/pacemaker lead seen in the right ventricle. The right ventri cular systolic function is normal. Atria The left atrium is mildly dilated. Right atrial size is normal. Mitral Valve The mitral valve leaflets are mildly thi ckened. There is mild mitral annular calcification. There is trace mitral reg urgitation. Tricuspid Valve There is trace tricuspid regurgitation. The right ventricular systolic pressure is approximated at 25.[address] us the right atrial pressure. Aortic Valve There is mild trileaflet aortic sclerosi s. No aortic regurgitation is present. No aortic stenosis is present. Pulmonic Valve There is no pulmonic valvular stenosis. Vessels Mild aortic root dilatation. Descending aortic velocity normal. Inferior vena cava not well visualized for estimation of right atrial pressure. Pericardium There is no pericardial effusion. MMode/2D Measurements & Calculations IVSd: 1.3 cm LVIDd: 5.0 cm LVIDs: 4.0 cm LVPWd: 1.1 cm FS: 20.2 % EDV(Teich): 118.5 ml ESV(Teich): 69.8 ml LV mass(C)d: 237.6 grams Ao root diam: 4.0 cm LA dimension: 4.1 cm LA/Ao: 1.0 LA Volume (BP): 63.0 ml LA Volume Index (BP): 25.3 ml/m2 Doppler Measurements & Calculations MV E max pascual: 58.3 cm/sec MV A max pascual: 54.2 cm/sec MV E/A: 1.1 MV dec time: 0.25 sec TR max pascual: 250.0 cm/sec TR max P.0 mmHg Report approved by: Pop Benavides 03/2016 04:09 PM Procedure Note Arron Parrish MD - 016 Interpretation Summary Version 2 [facility] Echocardiography Laboratory [address] [place] [address] Name: RADHA FAROOQ : 1940 Study Date: 02/04/2016 01:04 PM Age: 75 yrs Gender: Male Patient Location: [facility] Reason For Study: Chest Pain Ordering Physician: MAKSIM HERMAN Referring Physician: HERMINIA COLEMAN Performed By: Slava Mittal RDCS BSA: 2.5 m2 Height: 71 in Weight: 296 lb HR: 71 BP: 104/70 mmHg Procedure Complete Portable Echo Adult. Contrast L umason. Interpretation Summary The left ventricle is normal in size. Th ere is mild concentric left ventricular hypertrophy. Left ventricula r systolic function is low normal. The visual ejection fraction is estimate d at 50-55%. There is no thrombus seen in the left ventricle. The right ventricle is normal size. Ther e is a catheter/pacemaker lead seen in the right ventricle. The right ventri cular systolic function is normal. The left atrium is mildly dilated. Right atrial size is normal. Trace mitral and tricuspid regurgitation . Mild aortic root dilatation. No pericardial effusion. In comparison to the previous report viridiana ed 02/01/2012, the patient is now status post pacemaker implantation. Left Ventricle The left ventricle is normal in size. Th ere is mild concentric left ventricular hypertrophy. Left ventricula r systolic function is low normal. The visual ejection fraction is estimate d at 50-55%. There is no thrombus seen in the left ventricle. Right Ventricle The right ventricle is normal size. Ther e is a catheter/pacemaker lead seen in the right ventricle. The right ventri cular systolic function is normal. Atria The left atrium is mildly dilated. Right atrial size is normal. Mitral Valve The mitral valve leaflets are mildly thi ckened. There is mild mitral annular calcification. There is trace mitral reg urgitation. Tricuspid Valve There is trace tricuspid regurgitation. The right ventricular systolic pressure is approximated at 25.[address] us the right atrial pressure. Aortic Valve There is mild trileaflet aortic sclerosi s. No aortic regurgitation is present. No aortic stenosis is present. Pulmonic Valve There is no pulmonic valvular stenosis. Vessels Mild aortic root dilatation. Descending aortic velocity normal. Inferior vena cava not well visualized for estimation of right atrial pressure. Pericardium There is no pericardial effusion. MMode/2D Measurements & Calculations IVSd: 1.3 cm LVIDd: 5.0 cm LVIDs: 4.0 cm LVPWd: 1.1 cm FS: 20.2 % EDV(Teich): 118.5 ml ESV(Teich): 69.8 ml LV mass(C)d: 237.6 grams Ao root diam: 4.0 cm LA dimension: 4.1 cm LA/Ao: 1.0 LA Volume (BP): 63.0 ml LA Volume Index (BP): 25.3 ml/m2 Doppler Measurements & Calculations MV E max pascual: 58.3 cm/sec MV A max pascual: 54.2 cm/sec MV E/A: 1.1 MV dec time: 0.25 sec TR max pascual: 250.0 cm/sec TR max P.0 mmHg Report approved by: Pop Benavides 03/2016 04:09 PM Maksim Herman PA-C CV ECHO ORDERABLES EKG 12-lead, tracing only (02/04/2016 2:55 PM CDT) [facility] gist Method Time Signature Interpretation ECG Click View RADIOLOGY Image link RESULTS to view waveform and result Specimen (Source) Anatomical Collection Method Collection Time Re ceived Time Location / / Volume Laterality 02/04/2016 2:55 PM CDT Ankur Smith MD ECG ORDERABLES Performing Organization Address City/State/ZIP Code Phon e Number RADIOLOGY RESULTS EP Report - HIM Scan (02/04/2016 2:11 PM CDT) Anatomical Region Laterality Modality Other Narrative This result has an attachment that is no t available. Ankur Smith MD CV ELECTROPHYSIOLOGY ORDERAB LES EP Perm pacer dble lead (02/04/2016 1:55 PM CDT) Anatomical Region Laterality Modality Radio Fluoroscopy Specimen (Source) Anatomical Location Collection Method / Collectio n Time Received Time / Laterality Volume Narrative 02/08/2016 10:21 AM CDT PROCEDURE REPORT NAME OF THE PROCEDURE: Implantation of a dual chamber pacemaker system. INDICATIONS FOR PROCEDURE: Mr. Farooq is a 75-year-old white male with a history of coronary disease, previous CABG and atrial flutter. He presented with chest pain, and was found to have patent coronary grafts. The patient was found to have as ystole of 5 seconds on telemetry and he reported recent near sy ncope at home at least three times. PROCEDURE AND RESULTS: After the written informed consent was obtained, the patient was transported to CV Lab 4 in the fasting state. The procedure was performed under local anesthesia and sterile conditions. IV Versed and fentanyl were used for conscious sedation. By using the Seldinger technique, a guid ewire was inserted through the left subclavian vein. After the guidewir e was secured over the left shoulder by using the hemostat onto the draping, the incision was made below the left clavicle around the guide wire. The pacemaker pocket was created subcutaneously. The second guide wire was inserted after the creation of the pocket. The leads were i ntroduced by using the guidewires and peel-away sheaths. Under fluoroscopy, the ventricular lead was screwed into the base of the RV outflow tract and atrial lead to the RA appendage. Both leads were anc hored to the insertion sites after the pacing and sensing parameters were measured. The pocket was irrigated with bacitracin solution and c omplete hemostasis was obtained before the pulse generator impl antation. The incision was closed in layers and dressed in a steril e fashion. There was no complication. PACEMAKER INFORMATION: Pulse generator: [employer] ESSEN [address]NA DR Model L121, SN [id number]. Atrial lead: [employer] Model 2088TC, SR C [id number]. P-wave 2.7 millivolts. Atrial pacing thr eshold .8 volts. Atrial pace impedence 513 ohms. Ventricular lead: [employer] Model 2088TC, SR [id number]. R-wave 20 millivolts. Ventricular pacing threshold .8 volts. Ventricular pacing impedance 901 ohms. The patient was in atrial flutter on arr ival to the EP Lab. After the atrial lead was placed, the flutter was pace terminated to sinus rhythm. He had frequent PACs which made the atrial pacing threshold measurements somewhat difficult, but sti ll we were able to achieve the atrial pacing threshold measurement. If the patient is found to have atrial fibrillation/flutter on pacemaker interrogation in the near future, anticoagulation will be recommen ded. ANKUR SMITH MD Procedure Note Ankur Smith MD - 02/08/2016 PROCEDURE REPORT NAME OF THE PROCEDURE: Implantation of a dual chamber pacemaker system. INDICATIONS FOR PROCEDURE: Mr. Farooq is a 75-year-old white male with a history of coronary disease, previous CABG and atrial flutter. He presented with chest pain, and was found to have patent coronary grafts. The patient was found to have as ystole of 5 seconds on telemetry and he reported recent near sy ncope at home at least three times. PROCEDURE AND RESULTS: After the written informed consent was obtained, the patient was transported to CV Lab 4 in the fasting state. The procedure was performed under local anesthesia and sterile conditions. IV Versed and fentanyl were used for conscious sedation. By using the Seldinger technique, a guid ewire was inserted through the left subclavian vein. After the guidewir e was secured over the left shoulder by using the hemostat onto the draping, the incision was made below the left clavicle around the guide wire. The pacemaker pocket was created subcutaneously. The second guide wire was inserted after the creation of the pocket. The leads were i ntroduced by using the guidewires and peel-away sheaths. Under fluoroscopy, the ventricular lead was screwed into the base of the RV outflow tract and atrial lead to the RA appendage. Both leads were anc hored to the insertion sites after the pacing and sensing parameters were measured. The pocket was irrigated with bacitracin solution and c omplete hemostasis was obtained before the pulse generator impl antation. The incision was closed in layers and dressed in a steril e fashion. There was no complication. PACEMAKER INFORMATION: Pulse generator: [employer] ESSEN MARIANA DR Model L121, SN [id number]. Atrial lead: [employer] Model 2088TC, SR C [id number]. P-wave 2.7 millivolts. Atrial pacing thr eshold .8 volts. Atrial pace impedence 513 ohms. Ventricular lead: [employer] Model 2088TC, SR [id number]. R-wave 20 millivolts. Ventricular pacing threshold .8 volts. Ventricular pacing impedance 901 ohms. The patient was in atrial flutter on arr ival to the EP Lab. After the atrial lead was placed, the flutter was pace terminated to sinus rhythm. He had frequent PACs which made the atrial pacing threshold measurements somewhat difficult, but sti ll we were able to achieve the atrial pacing threshold measurement. If the patient is found to have atrial fibrillation/flutter on pacemaker interrogation in the near future, anticoagulation will be recommen ded. ANKUR SMITH MD Ankur Smith MD CV ELECTROPHYSIOLOGY ORDERAB LES INR (02/04/2016 12:03 PM CDT) athologist Signature INR 1.00 0.86 - 1.14 [facility] Specimen Anatomical Collection Method Collection Time Receive d Time (Source) Location / / Volume Laterality Blood specimen 02/04/2016 12:03 6 (specimen) PM CDT 12:13 PM CDT Ankur Smith MD LAB - BLOOD ORDERABLES Performing Organization Address City/State/ZIP Code Phon e Number [facility] [address] [place] [address] [phone] [facility] [address] [place] [address], [place] [phone] (ABNORMAL) HCG qualitative (02/04/2016 12:03 PM CDT) [facility] gist Method Time Signature HCG Qualitative Canceled, Test credited NEG [place] Serum Incorrectly ordered by PCU/Clinic [facility] (A) [facility] Specimen Anatomical Collection Method Collection Time Receive d Time (Source) Location / / Volume Laterality Blood specimen 02/04/2016 12:03 6 (specimen) PM CDT 12:13 PM CDT Ankur Smith MD LAB - BLOOD ORDERABLES Performing Organization Address City/State/ZIP Code Phon e Number [facility] [address] [place] [phone] [facility] [address] [place] [address], [place] [phone] CBC with platelets (02/04/2016 12:03 PM CDT) P athologist Signature WBC 6.4 4.0 - 11.0 [place] 10e9/L [facility] RBC Count 4.80 4.4 - 5.9 [place] 10e12/L [facility] Hemoglobin 15.8 13.3 - [place] 17.7 g/dL [facility] Hematocrit 46.8 40.0 - [place] 53.0 % [facility] MCV 98 78 - 100 [place] fl [facility] MCH 32.9 26.5 - [place] 33.0 pg [facility] MCHC 33.8 31.5 - [place] 36.5 g/dL [facility] RDW 13.6 10.0 - [place] 15.0 % [facility] Platelet Count 206 150 - 450 [place] 10e9/L [facility] Specimen Anatomical Collection Method Collection Time Receive d Time (Source) Location / / Volume Laterality Blood specimen 02/04/2016 12:03 6 (specimen) PM CDT 12:13 PM CDT Ankur Smith MD LAB - BLOOD ORDERABLES Performing Organization Address City/State/ZIP Code Phon e Number [facility] [address] [phone] [facility] [address] [address], [facility] [phone] (ABNORMAL) Glucose by meter (02/04/2016 11:57 AM CDT) P athologist Signature Glucose 203 (H) 70 - 99 POINT OF CARE mg/dL TEST, GLUCOSE Specimen Anatomical Collection Method Collection Time Receive d Time (Source) Location / / Volume Laterality 02/04/2016 11:57 02/04/2016 AM CDT 12:00 PM CDT Blane LAGUNAS - LIYA POCT Performing Organization Address City/State/ZIP Code Phon e Number FV POINT OF CARE TEST, GLUCOSE POINT OF CARE TEST, GLUCOSE (ABNORMAL) Glucose by meter (02/04/2016 7:15 AM CDT) P athologist Signature Glucose 173 (H) 70 - 99 POINT OF CARE mg/dL TEST, GLUCOSE Specimen Anatomical Collection Method Collection Time Receive d Time (Source) Location / / Volume Laterality 02/04/2016 7:15 AM 6 8:01 CDT AM CDT Blane LAGUNAS - LIYA POCT Performing Organization Address City/State/ZIP Code Phon e Number FV POINT OF CARE TEST, GLUCOSE POINT OF CARE TEST, GLUCOSE (ABNORMAL) Glucose by meter (02/04/2016 2:23 AM CDT) P athologist Signature Glucose 157 (H) 70 - 99 POINT OF CARE mg/dL TEST, GLUCOSE Specimen Anatomical Collection Method Collection Time Receive d Time (Source) Location / / Volume Laterality 02/04/2016 2:23 AM 6 2:25 CDT AM CDT Blane LAGUNAS - LIYA POCT Performing Organization Address [facility] Phon e Number FV POINT OF CARE TEST, GLUCOSE POINT OF CARE TEST, GLUCOSE EP REPORT - HIM SCAN (02/04/2016 12:00 AM CDT) Specimen (Source) Anatomical Location Collection Method / Collectio n Time Received Time / Laterality Volume 02/04/2016 Narrative This result has an attachment that is no t available. Provider Scan CV ELECTROPHYSIOLOGY ORDERAB LES (ABNORMAL) Glucose by meter (02/03/2016 9:13 PM CDT) P athologist Signature Glucose 204 (H) 70 - 99 POINT OF CARE mg/dL TEST, GLUCOSE Specimen Anatomical Collection Method Collection Time Receive d Time (Source) Location / / Volume Laterality 02/03/2016 9:13 PM 6 9:16 CDT PM CDT Blane LAGUNAS - LIYA POCT Performing Organization Address [facility] Phon e Number FV POINT OF CARE TEST, GLUCOSE POINT OF CARE TEST, GLUCOSE (ABNORMAL) Glucose by meter (02/03/2016 5:17 PM CDT) P athologist Signature Glucose 132 (H) 70 - 99 POINT OF CARE mg/dL TEST, GLUCOSE Specimen Anatomical Collection Method Collection Time Receive d Time (Source) Location / / Volume Laterality 02/03/2016 5:17 PM 6 5:21 CDT PM CDT Blane NICKERSON POCT Performing Organization Address [facility]/ZIP [facility] Phon e Number FV POINT OF CARE TEST, GLUCOSE POINT OF CARE TEST, GLUCOSE Heart Cath Left heart cath (02/03/2016 4:25 PM CDT) Anatomical Region Laterality Modality Radio Fluoroscopy Specimen (Source) Anatomical Location Collection Method / Collectio n Time Received Time / Laterality Volume Impressions 02/03/2016 4:30 PM CDT IMPRESSION: Occluded ak chin coronary arteries. Patent bypass ??grafts. PLAN: Medical management JUAN JOSÉ PERSON MD Narrative 02/03/2016 4:30 PM CDT INDICATION: Myocardial infarction PROCEDURES PERFORMED: Aortogram, left ri ght heart catheter coronary angiogram, vein graph angiography, wave wire HISTORY: Refer to H&P PROCEDURE: After discussing risks, benef its, goals, alternatives and complications of the procedure, the kaelyn ent was brought to the catheterization lab. Right and left groi ns were prepped and draped in sterile fashion. Under 1% Lidocaine a 4 Thai sheath was placed in the right femoral artery using a modifie d Seldinger technique. Coronary angiography was performed with a 4 Thai JL 4.5 and 3 DRC, multipurpose catheter diagnostic cathete rs. Standard angle and views were used for the right and left coronar ies. ??Wave wire was performed to the RCA graft. This was negative. ??A ortogram was done to look for RCA ak chin artery. FINDINGS: See below LEFT MAIN CORONARY ARTERY: Complete occl usion proximally LEFT ANTERIOR DESCENDING ARTERY: Patent and fed by a vein graft CIRCUMFLEX ARTERY: Obtuse marginal arter y fed by a vein graft RIGHT CORONARY ARTERY: Complete occlusio n Saphenous Vein ??a graft to the LAD and diagonal: Widely patent Saphenous vein graft to the OM: Widely p atent Saphenous vein graft to the PDA: There i s an unusual seen 4 bend in the proximal segment with mild 40-50% pr oximal stenosis. The distal vein graft into the PDA is widely patent . FFR negative. Procedure Note Juan José Person MD - 02/03/2016Fo rmatting of this note might be different from the original. INDICATION: Myocardial infarction PROCEDURES PERFORMED: Aortogram, left ri ght heart catheter coronary angiogram, vein graph angiography, wave wire HISTORY: Refer to H&P PROCEDURE: After discussing risks, benef its, goals, alternatives and complications of the procedure, the kaelyn ent was brought to the catheterization lab. Right and left groi ns were prepped and draped in sterile fashion. Under 1% Lidocaine a 4 Thai sheath was placed in the right femoral artery using a modifie d Seldinger technique. Coronary angiography was performed with a 4 Thai JL 4.5 and 3 DRC, multipurpose catheter diagnostic cathete rs. Standard angle and views were used for the right and left coronar ies. Wave wire was performed to the RCA graft. This was negative. Aor togram was done to look for RCA ak chin artery. FINDINGS: See below LEFT MAIN CORONARY ARTERY: Complete occl usion proximally LEFT ANTERIOR DESCENDING ARTERY: Patent and fed by a vein graft CIRCUMFLEX ARTERY: Obtuse marginal arter y fed by a vein graft RIGHT CORONARY ARTERY: Complete occlusio n Saphenous Vein a graft to the LAD and di agonal: Widely patent Saphenous vein graft to the OM: Widely p atent Saphenous vein graft to the PDA: There i s an unusual seen 4 bend in the proximal segment with mild 40-50% pr oximal stenosis. The distal vein graft into the PDA is widely patent . FFR negative. IMPRESSION: Occluded ak chin coronary art eries. Patent bypass grafts. PLAN: Medical management JUAN JOSÉ PERSON MD Siddharth Singleton DO CV CARDIAC CATH ORDERABLE S Activated clotting time POCT (02/03/2016 4:14 PM CDT) athologist Signature Activated Clot 156 105 - 167 POINT OF CARE Time sec TEST, HANDHELD METER Specimen Anatomical Collection Method Collection Time Receive d Time (Source) Location / / Volume Laterality 02/03/2016 4:14 PM 6 5:41 CDT PM CDT Blane Pina MD LAB - ENTER/EDIT POCT Performing Organization Address City/State/ZIP Code Phon e Number FV POINT OF CARE TEST, HANDHELD METER POINT OF CARE TEST, HANDHELD METER Heparin 10a Level (02/03/2016 12:05 PM CDT) athologist Signature Heparin 10A 0.29 IU/mL [facility] Comment: Therapeutic Range: ?? UFH: ?? 0.15-0.35 IU/mL for low ?intensity dosing ?0.30-0.70 IU/mL for high ?intensity dosing ?? LMWH: ??1.00-2.00 IU/mL if 4-6 h ?post daily dosing ?0.60-1.00 IU/mL if 4-6 h ?post twice a day dosin g Specimen Anatomical Collection Method Collection Time Receive d Time (Source) Location / / Volume Laterality Blood specimen 02/03/2016 12:05 6 (specimen) PM CDT 12:19 PM CDT Blane Pina MD LAB - BLOOD ORDERABLES Performing Organization Address City/[facility]/ZIP [facility] Phon e Number [facility] [address] [place] [address] [facility] [address] [place] [address], [place] [phone] (ABNORMAL) Glucose by meter (02/03/2016 12:04 PM CDT) P athologist Signature Glucose 157 (H) 70 - 99 POINT OF CARE mg/dL TEST, GLUCOSE Specimen Anatomical Collection Method Collection Time Receive d Time (Source) Location / / Volume Laterality 02/03/2016 12:04 02/03/2016 PM CDT 12:11 PM CDT Blane NICKERSON POCT Performing Organization Address [facility]/ZIP Code Phon e Number FV POINT OF CARE TEST, GLUCOSE POINT OF CARE TEST, GLUCOSE (ABNORMAL) Glucose by meter (02/03/2016 7:12 AM CDT) P athologist Signature Glucose 182 (H) 70 - 99 POINT OF CARE mg/dL TEST, GLUCOSE Specimen Anatomical Collection Method Collection Time Receive d Time (Source) Location / / Volume Laterality 02/03/2016 7:12 AM 6 7:21 CDT AM CDT Blane NICKERSON POCT Performing Organization Address [facility]/ZIP [facility] Phon e Number FV POINT OF CARE TEST, GLUCOSE POINT OF CARE TEST, GLUCOSE (ABNORMAL) Troponin I (02/03/2016 4:50 AM CDT) Analysis Performed At [facility] logist Time Signature Troponin I ES 0.395 (HH) 0.000 - [place] 0.045 ug/L [facility] Comment: The 99th percentile for upper reference range is 0.045 ug/L. ??Troponin values in the range of 0.045 - 0.120 ug/L may be associated with risks of adverse clinical events. Previous critical documented Specimen Anatomical Collection Method Collection Time Receive d Time (Source) Location / / Volume Laterality 02/03/2016 4:50 AM 6 5:01 CDT AM CDT Blane Pina MD LAB - BLOOD ORDERABLES Performing Organization Address City/[facility]/ZIP Code Phon e Number [facility] [address] [address] [phone] [facility] [address] [address], [facility] [phone] Heparin Xa (10a) Level (02/03/2016 4:50 AM CDT) [facility] gist Method Time Signature Heparin 10A <0.10 IU/mL [place] Level [facility] ?? UFH: ?? 0.15-0.35 IU/mL for low HOSPITAL ?intensity dosing ?0.30-0.70 IU/mL for high ?intensity dosing ?? LMWH: ??1.00-2.00 IU/mL if 4-6 h ?post daily dosing ?0.60-1.00 IU/mL if 4-6 h ?post twice a day dosing Specimen Anatomical Collection Method Collection Time Receive d Time (Source) Location / / Volume Laterality Blood specimen 02/03/2016 4:50 AM 016 5:01 (specimen) CDT AM CDT Blane Pina MD LAB - BLOOD ORDERABLES Performing Organization Address City/State/ZIP Code Phon e Number [facility] [address] [phone] [facility] [address] [place] [address], [place] [phone] (ABNORMAL) Basic metabolic panel (02/03/2016 4:50 AM CDT) athologist Signature Sodium 138 133 - 144 [place] mmol/L [facility] Potassium 4.1 3.4 - 5.3 [place] mmol/L [facility] Chloride 103 94 - 109 [place] mmol/L [facility] Carbon Dioxide 26 20 - 32 [place] mmol/L [facility] Anion Gap 9 3 - 14 [place] mmol/L [facility] Glucose 167 (H) 70 - 99 [place] mg/dL [facility] Urea Nitrogen 27 7 - 30 [place] mg/dL [facility] Creatinine 1.02 0.66 - [place] 1.25 mg/dL [facility] GFR Estimate 71 >60 [place] mL/min/1.[address] Comment: Non GFR Calc GFR Estimate If Black 86 >60 mL/min/1.7m2 [facility] Comment: GFR Calc Calcium 8.4 (L) 8.5 - 10.1 mg/dL [facility] Specimen Anatomical Collection Method Collection Time Receive d Time (Source) Location / / Volume Laterality Blood specimen 02/03/2016 4:50 AM 016 5:01 (specimen) CDT AM CDT Blane Pina MD LAB - BLOOD ORDERABLES Performing Organization Address City/State/ZIP Code Phon e Number [facility] [address] [place] [address] [facility] [address] [place] [address], [place] [phone] (ABNORMAL) Hemoglobin A1c (02/03/2016 4:50 AM CDT) P athologist Signature Hemoglobin A1C 9.0 (H) 4.3 - 6.0 [facility] Specimen Anatomical Collection Method Collection Time Receive d Time (Source) Location / / Volume Laterality Blood specimen 02/03/2016 4:50 AM 016 5:01 (specimen) CDT AM CDT Blane Pina MD LAB - BLOOD ORDERABLES Performing Organization Address City/State/ZIP Code Phon e Number [facility] [address] [place] [address] [facility] [address] [place] [address], [place] [phone] (ABNORMAL) Lipid panel reflex to direct LDL (02/03/2016 4:50 AM CDT) P athologist Signature Cholesterol 155 <200 mg/dL [facility] Triglycerides 190 (H) <150 mg/dL [facility] Comment: Borderline high: ??150-199 mg/dl High: ? 200-499 mg/dl Very high: ? >499 mg/dl HDL Cholesterol 31 (L) >39 mg/dL [facility] LDL Cholesterol Calculated 86 <100 mg/dL [facility] Comment: Desirable: <100 mg/dl Non HDL Cholesterol 124 <130 mg/dL [facility] Specimen Anatomical Collection Method Collection Time Receive d Time (Source) Location / / Volume Laterality Blood specimen 02/03/2016 4:50 AM 016 5:01 (specimen) CDT AM CDT Blane Pina MD LAB - BLOOD ORDERABLES Performing Organization Address City/State/ZIP Code Phon e Number [facility] [address] [place] [address] [phone] [facility] [address] [place] [address], [place] [phone] (ABNORMAL) Troponin I - Now then in 4 hours x 3 (02/03/2016 1:40 AM CDT) Analysis Performed At Patho logist Time Signature Troponin I ES 0.441 (HH) 0.000 - [place] 0.045 ug/L [facility] Comment: The 99th percentile for upper reference range is 0.045 ug/L. ??Troponin values in the range of 0.045 - 0.120 ug/L may be associated with risks of adverse clinical events. Previous critical documented Specimen Anatomical Collection Method Collection Time Receive d Time (Source) Location / / Volume Laterality Blood specimen 02/03/2016 1:40 AM 016 1:51 (specimen) CDT AM CDT Blane Pina MD LAB - BLOOD ORDERABLES Performing Organization Address City/[facility]/ZIP Code Phon e Number [facility] [address] [place] [address] [facility] [address] [place] [address], [place] [phone] (ABNORMAL) Troponin I - Now then in 4 hours x 3 (02/02/2016 9:40 PM CDT) Analysis Performed At Patho logist Time Signature Troponin I ES 0.407 () 0.000 - [place] 0.045 ug/L [facility] Comment: The 99th percentile for upper reference range is 0.045 ug/L. ??Troponin values in the range of 0.045 - 0.120 ug/L may be associated with risks of adverse clinical events. Critical Value called to and read back by KENNETH IN CCU AT 2210 KMJ Specimen Anatomical Collection Method Collection Time Receive d Time (Source) Location / / Volume Laterality Blood specimen 02/02/2016 9:40 PM 016 9:47 (specimen) CDT PM CDT Blane Pina MD LAB - BLOOD ORDERABLES Performing Organization Address City/State/ZIP Code Phon e Number [facility] [address] [place] [address] [facility] [address] [place] [address], [place] [phone] CBC with platelets (02/02/2016 9:40 PM CDT) P athologist Signature WBC 10.3 4.0 - 11.0 [place] 10e9/L [facility] RBC Count 4.63 4.4 - 5.9 [place] 10e12/L [facility] Hemoglobin 15.2 13.3 - [place] 17.7 g/dL [facility] Hematocrit 45.0 40.0 - [place] 53.0 % [facility] MCV 97 78 - 100 [place] fl [facility] MCH 32.8 26.5 - [place] 33.0 pg [facility] MCHC 33.8 31.5 - [place] 36.5 g/dL [facility] RDW 13.6 10.0 - [place] 15.0 % [facility] Platelet Count 196 150 - 450 [place] 10e9/L [facility] Specimen Anatomical Collection Method Collection Time Receive d Time (Source) Location / / Volume Laterality Blood specimen 02/02/2016 9:40 PM 016 9:47 (specimen) CDT PM CDT Blane Pina MD LAB - BLOOD ORDERABLES Performing Organization Address City/State/ZIP Code Phon e Number [facility] [address] [place] [address] [facility] [address] [place] [address], [facility] [phone] (ABNORMAL) Glucose by meter (02/02/2016 9:12 PM CDT) P athologist Signature Glucose 145 (H) 70 - 99 POINT OF CARE mg/dL TEST, GLUCOSE Specimen Anatomical Collection Method Collection Time Receive d Time (Source) Location / / Volume Laterality 02/02/2016 9:12 PM 6 9:15 CDT PM CDT Blane Pina MD LAB - BEAKER POCT Performing Organization Address City/State/ZIP Code Phon e Number [facility] POINT OF CARE TEST, GLUCOSE POINT OF CARE TEST, GLUCOSE documented in this encounter Visit Diagnoses Diagnosis Sinoatrial node dysfunction (H) - Primar y Sinoatrial node dysfunction Type 2 diabetes mellitus with complicati on (H) Second degree AV block Other second degree atrioventricular blo ck Atrial flutter, unspecified 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 Pre-procedurally for CAR electrophysiology studies., Cardiac Pre-procedure, Starting on Sun02/04/16 at 1200, Until Sun02/04/16 at 1430 0.9% sodium chloride infusion Rate/Dose Verify 02/03/2016 8:05 AM CDT 75 mL/hr at 75 mL/hr, Intravenous, CONTINUOUS, Starting on Sun02/02/16 at 2130, Until Sun02/03/16 at 2333 Rate/Dose Verify 02/03/2016 12:04 AM CDT 75 mL/hr New Bag 02/02/2016 9:55 PM CDT 75 mL/hr 0.9% sodium chloride infusion New Bag 02/03/2016 9:35 AM CDT 150 mL/hr at 150 mL/hr, Intravenous, CONTINUOUS, 150 mL/hr IV for 2 hours prior to cardiac prosthetic lab technician procedure, then decrease to 75 mL/hr to run throughout the procedure. Start at 0800 for inpatients. IF PATIENT IS RECEIVING RENAL DIALYSIS, RN to reduce rate of 0.9 % sodium chloride IV solution to 10 mL /hour (TKO) IV infusion to prevent fluid overload., Cardiac Pre-procedure, Starting on Sun02/03/16 at 0930, Until Sun02/03/16 at 1652 0.9% sodium chloride infusion New Bag 02/03/2016 5:43 PM CDT 75 mL/hr at 75 mL/hr, Intravenous, CONTINUOUS, Administer over 4 Hours, or until patient is ambulating. IF PATIENT IS RECEIVING RENAL DIALYSIS, RN to reduce rate of 0.9% sodium chloride IV solution to 10 mL /hour (TKO) to prevent fluid overload, Cardiac Post-procedure, Starting on Sun02/03/16 at 1745, Until Ana 02/03/16 at 2334 acetaminophen (TYLENOL) tablet 325-650 m g Given 02/03/2016 7:02 PM CDT 650 mg 325-650 mg, Oral, EVERY 4 HOURS PRN, mild pain, headaches, Starting on Ana 02/03/16 at 1740, Maximum acetaminophen dose from all sources = 75 mg/kg/day not to exceed 4 grams/day., Cardiac Post-procedure aspirin chewable tablet 162 mg Given 02/02/2016 9:56 PM CDT 162 mg 162 mg, Oral, ONCE, On Sun02/02/16 at 2130, For 1 dose, if not given in ED or by EMS. Total of 324mg today aspirin EC tablet 81 mg Given 02/04/2016 7:59 AM CDT 81 mg 81 mg, Oral, DAILY, First dose on Sun02/04/16 at 0900, DO NOT CRUSH., Cardiac Post-procedure aspirin tablet 325 mg Given 02/03/2016 9:35 AM CDT 325 mg 325 mg, Oral, DAILY, First dose on Sun02/03/16 at 0900 bacitracin in 0.9% NaCl 500 mL Given by Other 02/04/2016 1:48 PM 25,0 00 Units Bottle for irrigation 25,000 CDT Units ONCE PRN, for pacemaker/defibrillator pocket antibiotic irrigation. , Starting on Sun02/04/16 at 1310, For 1 dose, Irrigate pacemaker/defibrillator pocket when verbally ordered by prescriber during procedure., Cardiac Intra-procedure bupivacaine HCl 0.25 % preservative Given by Other 02/04/2016 1:35 PM CDT 5 mLs free injection SOLN 25-75 mg 25-75 mg (10-30 mL), Intradermal, ONCE PRN, for implants; for local anesthesia as verbally ordered by prescriber during procedure., Starting on Sun02/04/16 at 1310, For 1 dose, The provider administers the medication. Dose may be into smaller doses for administration., Cardiac Intra-procedure Given by Other 02/04/2016 1:30 PM CDT 10 mLs ceFAZolin (ANCEF) intermittent infusion 3 g Given 02/04/2016 1:0 0 PM CDT 3 g (pre-mix) Routine, 3 g, Intravenous, PRE-OP/PRE-PROCEDURE, Starting on Sun02/04/16 at 1148, For 1 dose, Give dose within 1 hour PRIOR to procedure in pre-procedure area (Outpatients), or, on Patient Care Unit (Inpatients) PRIOR to arrival in EP lab/incision/procedure. Call EP lab to coordinate start time., Indications: Perioperative Pharmacoprophylaxis, Cardiac Pre-procedure fenofibrate tablet 160 mg Given 02/04/2016 7:59 AM CDT 160 mg 160 mg, Oral, DAILY, First dose on 02/02/16 at 0900 Given 02/03/2016 9:39 AM CDT 160 mg FentaNYL Citrate (PF) (SUBLIMAZE) injection Given 02/03/2016 4:13 PM CDT 25 mcg 25-50 mcg 25-50 mcg, Intravenous, EVERY 2 MIN PRN, moderate to severe pain, other, when verbally ordered by prescriber during the procedure., Starting on Ana 02/03/16 at 1544, Doses can be exceeded under direct oversight of the patient by physician., Cardiac Intra-procedure Given 02/03/2016 3:51 PM CDT 25 mcg Given 02/03/2016 3:26 PM CDT 50 mcg FentaNYL Citrate (PF) (SUBLIMAZE) injection Given 02/04/2016 1:25 PM CDT 50 mcg 25-50 mcg 25-50 mcg, Intravenous, EVERY 2 MIN PRN, severe pain (7-10), when verbally ordered by the prescriber during the procedure, Starting on Sun02/04/16 at 1310, Doses can be exceeded under direct oversight of patient by physician., Cardiac Intra-procedure Given 02/04/2016 1:18 PM CDT 50 mcg heparin (porcine) injection 1,000-10,000 Given 016 4:04 PM CDT 2,000 Units Units 1,000-10,000 Units, Intravenous, EVERY 5 MIN PRN, other, bolus dose, Starting on Ana 02/03/16 at 1544, when verbally ordered by prescriber during procedure. Up to a max of 25,000 units. Physician may request an additional bolus., Cardiac Intra-procedure heparin infusion 25,000 New Bag 02/03/2016 12:54 PM 1,350 Units/hr 13.5 mL/hr units in 0.45% NaCl 250 mL CDT 1,350 Units/hr (13.5 mL/hr), Intravenous, CONTINUOUS, Starting on Sun02/02/16 at 2130, Goal level of: 0.15-0.35 IU/mL Xa=0.29 , continue @ 1350 units/hr and recheck in am 5/6 Heparin dosed per [place] Protocol. Monitor platelets every three days while on anticoagulation therapy. Rate/Dose Verify 02/03/2016 8:04 AM CDT 1,350 Units/hr 13.5 mL/hr Rate/Dose Change 02/03/2016 5:41 AM CDT 1,350 Units/hr 13.5 mL/hr heparin Loading Dose bolus dose from Given 02/03/2016 5:45 AM CD T 5,000 Units infusion pump 5,000 Units 5,000 Units, Intravenous, ONCE, On Ana 02/03/16 at 0545, For 1 dose, Nurse to administer dose from existing infusion. If no infusion bag or syringe for this order is available, contact pharmacist to re-enter medication order. insulin Aspart (NovoLOG) inj (RAPID ACTI NG) Given 02/04/2016 4:11 PM CDT 4 Units 1-10 Units, Subcutaneous, 3 TIMES DAILY BEFORE MEALS, First dose on Sun02/03/16 at 0730, Correction Scale - HIGH INSULIN RESISTANCE DOSING Do Not give Correction Insulin if Pre-Meal BG < 140. For Pre-Meal BG 140 - 164 give 1 unit. For Pre-Meal BG 165 - 189 give 2 units. For Pre-Meal BG 190 - 214 give 3 units. For Pre-Meal BG 215 - 239 give 4 units. For Pre-Meal BG 240 - 264 give 5 units. For Pre-Meal BG 265 - 289 give 6 units. For Pre-Meal BG 290 - 314 give 7 units. For Pre-Meal BG 315 - 339 give 8 units. For Pre-Meal BG 340 - 364 give 9 units. For Pre-Meal BG = or > 365 give 10 units To be given with prandial insulin, and based on pre-meal blood glucose. Notify MD if glucose > or = 350 mg/dL after administration of correction dose. If given at mealtime, must be administered 5 min before meal or immediately after. Given 02/04/2016 7:57 AM CDT 2 Units Given 02/03/2016 12:25 PM CDT 1 Units insulin Aspart (NovoLOG) inj (RAPID ACTI NG) Given 02/03/2016 9:18 PM CDT 1 Units 1-7 Units, Subcutaneous, AT BEDTIME, First dose on Sun02/02/16 at 2200, HIGH INSULIN RESISTANCE DOSING Do Not give Bedtime Correction Insulin if BG < 200. For BG 200 - 224 give 1 units. For BG 225 - 249 give 2 units. For BG 250 - 274 give 3 units. For BG 275 - 299 give 4 units. For BG 300 - 324 give 5 units. For BG 325 - 349 give 6 units. For BG = or > 350 give 7 units. Notify MD if glucose > or = 350 mg/dL after administration of correction dose. If given at mealtime, must be administered 5 min before meal or immediately after. insulin glargine (LANTUS) injection 7 Un its Given 02/03/2016 9:17 PM CDT 7 Units 7 Units, Subcutaneous, AT BEDTIME, First dose on Sun02/03/16 at 2200 lidocaine (PF) (XYLOCAINE) 1 % Given by Other 02/03/2016 3:50 PM CDT 90 mg injection 10-100 mg 10-100 mg (1-10 mL), Subcutaneous, ONCE PRN, For local anesthesia for groin puncture as verbally ordered by prescriber during the procedure., Starting on Sun02/03/16 at 1544, For 1 dose, The provider administers the medication. Dose may be into smaller doses for administration., Cardiac Intra-procedure lidocaine (PF) (XYLOCAINE) 1 % Given by Other 02/04/2016 1:35 PM CDT 50 mg injection 100-300 mg 100-300 mg (10-30 mL), Intradermal, ONCE PRN, for implants; for local anesthesia as verbally ordered by precriber during the procedure., Starting on Sun02/04/16 at 1310, For 1 dose, The provider administers the medication. Dose may be into smaller doses for administration, Cardiac Intra-procedure Given by Other 02/04/2016 1:30 PM CDT 100 mg lidocaine (XYLOCAINE) 2 % 15 mL, alum & mag Given 02/02/2016 9:18 PM CDT 30 mLs hydroxide-simethicone (MYLANTA ES/MAALOX ES) 15 mL GI Cocktail 30 mL, Oral, ONCE, On Sun02/02/16 at 2100, For 1 dose lisinopril (PRINIVIL,ZESTRIL) tablet 20 mg Given 02/04/2016 7:59 AM CDT 20 mg 20 mg, Oral, DAILY, First dose on Sun02/03/16 at 0900 metoprolol (TOPROL-XL) 24 hr tablet 50 m g Given 02/03/2016 9:35 AM CDT 50 mg 50 mg, Oral, DAILY, First dose on Sun02/03/16 at 0900, DO NOT CRUSH. Tablet may be split in half along score line. For Adults, Hold if Heart Rate less than 60 bpm. midazolam (VERSED) injection 0.5-2 mg Given 02/03/2016 4:14 PM CDT 0.5 mg 0.5-2 mg, Intravenous, EVERY 2 MIN PRN, other, when verbally ordered by prescriber during the procedure., Starting on Ana 02/03/16 at 1544, Doses can be exceeded under direct oversight of the patient by physician., Cardiac Intra-procedure Given 02/03/2016 3:52 PM CDT 0.5 mg Given 02/03/2016 3:26 PM CDT 1 mg midazolam (VERSED) injection 0.5-2 mg Given 02/04/2016 1:25 PM CDT 1 mg 0.5-2 mg, Intravenous, EVERY 2 MIN PRN, sedation, when verbally ordered by the prescriber during the procedure, Starting on Sun02/04/16 at 1310, Doses can be exceeded under direct oversight of patient by physician., Cardiac Intra-procedure Given 02/04/2016 1:20 PM CDT 2 mg nitroglycerin 50 mg in D5W Rate/Dose 02/03/2016 8:58 0.17 mcg/kg/min 6.9 mL/hr 250 mL (adult std) Change AM CDT infusion 0.07-1.49 mcg/kg/min ? 134.6 kg (2.8266-60.1662 mL/hr, rounded to 2.8-60.2 mL/hr), Intravenous, CONTINUOUS, Starting on Sun02/02/16 at 2130, Start at lowest dose ordered. Titrate by 0.1 mcg/kg/min every 5 minutes to keep systolic blood pressure less than 120 mmHg and greater than 90 mmHg and control angina. Hold for systolic blood pressure less than 85 mmHg. Notify provider if patient continues to have chest pain. Max Dose: 2 mcg/kg/min Rate/Dose Change 02/03/2016 8:04 AM CDT 0.07 mcg/kg/min 2.8 mL/hr Rate/Dose Change 02/03/2016 5:46 AM CDT 0.17 mcg/kg/min 6.9 mL/hr pantoprazole (PROTONIX) EC tablet 20 mg Given 02/04/2016 6:51 AM CDT 20 mg 20 mg, Oral, EVERY MORNING BEFORE BREAKFAST, First dose on Sun02/04/16 at 0730, DO NOT CRUSH. Therapeutic interchange for Nexium. pantoprazole (PROTONIX) EC tablet 40 mg Given 02/03/2016 8:56 AM CDT 40 mg 40 mg, Oral, EVERY MORNING BEFORE BREAKFAST, First dose on Sun02/03/16 at 0730 pravastatin (PRAVACHOL) tablet 80 mg Given 02/03/2016 9:18 PM CDT 80 mg 80 mg, Oral, AT BEDTIME, First dose on Sun02/02/16 at 2200 Given 02/02/2016 9:56 PM CDT 80 mg sodium chloride (PF) 0.9% PF flush 10 mL Given 02/04/2016 3:19 PM CDT 10 mLs 10 mL, Intravenous, ONCE, On Sun02/04/16 at 1530, For 1 dose sodium chloride (PF) 0.9% PF flush 3 mL Given 02/04/2016 6:53 AM CDT 3 mLs 3 mL, Intracatheter, EVERY 1 HOUR PRN, line flush, Starting on Sun02/03/16 at 1740, for peripheral IV flush post IV meds, Cardiac Post-procedure sodium chloride (PF) 0.9% PF flush 3 mL Given 02/04/2016 6:53 AM CDT 3 mLs 3 mL, Intracatheter, EVERY 8 HOURS, First dose on Sun02/03/16 at 1745, And Q1H PRN, to lock peripheral IV dormant line., Cardiac Post-procedure sodium chloride (PF) 0.9% PF flush 3 mL Given 02/04/2016 12:15 PM CDT 3 mLs 3 mL, Intracatheter, EVERY 8 HOURS, First dose on Sun02/04/16 at 1200, And Q1H PRN, to lock peripheral IV dormant line., Cardiac Pre-procedure sucralfate (CARAFATE) suspension 1 g Given 02/04/2016 6:51 AM CDT 1 g 1 g, Oral, 3 TIMES DAILY BEFORE MEALS, First dose on Sun02/03/16 at 1200, Shake well. Recommended to take before meals. Given 02/03/2016 6:18 PM CDT 1 g sulfur hexafluoride microsphere (LUMASON) Given 02/04/2016 3:19 PM CDT 5 mLs 60.7-25 MG injection 5 mL 5 mL, Intravenous, ONCE, On Sun02/04/16 at 1530, For 1 dose documented in this encounter Active and Recently Administered Medications Times are shown in CDT. Scheduled Medication Order 02/02/2016 02/03/2016 02/04/2016 aspirin chewable tablet 162 mg (COMPLETED) 2155 (Given - Provider: Sintia Ahuja, RN) 162 mg, Oral, ONCE, On Sun02/02/16 at 213 0, For 1 dose, if not given in ED or by EMS. Total of 324mg today aspirin EC tablet 81 mg (CANCELED) 0759 (Given - Provider: Anel Patterson RN)0800 (Canceled Entry - Provider: Anel Patterson RN) 81 mg, Oral, DAILY, First dose on 03/16 at 0900, DO NOT CRUSH., Cardiac Post-procedure aspirin tablet 325 mg (CANCELED) 0935 (Given - P rovider: Nieves Granado RN) 325 mg, Oral, DAILY, First dose on Sun02/03/16 at 0900 ceFAZolin (ANCEF) intermittent infusion 3 g (pre-mix) (COMPLETED ) 1300 (Given - Provider: Anel Patterson RN) Routine, 3 g, Intravenous, PRE-OP/PRE-IN OCEDURE, Starting on Sun02/04/16 at 1148, For 1 dose, Give dose within 1 hour PRIOR to procedure in pre-procedure area (Outpatients), or, on Patient Care Unit (Inp atients) PRIOR to arrival in EP lab/inci debra/procedure. Call EP lab to coordinate start time., Indications: Perioperative Pharmacoprophylaxis, Cardiac Pre-procedure fenofibrate tablet 160 mg (CANCELED) 093 9 (Given - Provider: Nieves Granado, SIENNA) 0759 (Given - Provider: Den Rose)0900 (Canceled Entry - Provider: Anel Patterson RN) 160 mg, Oral, DAILY, First dose on Sun02/03/16 at 0900 heparin Loading Dose bolus dose from infusion pump 5,000 Uni ts (COMPLETED) 0545 (Given - Provider: Catherine Mak RN) 5,000 Units, Intravenous, ONCE, On Sun at 0545, For 1 dose, Nurse to administer dose from existing infusion. If no infusion bag or syringe for this order is available, contact pharmacist to re-enter medication order. insulin Aspart (NovoLOG) inj (RAPID ACTING) (CANCELED) 0811 (Given - Provider: Nieves Granado, RN)1225 (Given - Provider: Nieves Granado, RN)1743 (Not Given - Provider: Sintia Ahuja RN - Reason: Order parameters not met) 0757 (Given - Provider: Anel Patterson RN)1356 (Not Given - Provider: Anel Patterson RN - Reason: NPO)1611 (Given - Provider: Anel Wheatley RN - Comment: BS 229) 1-10 Units, Subcutaneous, 3 TIMES DAILY BEFORE MEALS, First dose on Sun02/03/16 at 0730, Correction Scale - HIGH INSULIN RESISTANCE DOSING Do Not give Correction Insulin if Pre-Meal BG < 140. For Pre- Meal BG 140 - 164 give 1 unit. For Pre-M eal BG 165 - 189 give 2 units. For Pre- Meal BG 190 - 214 give 3 units. For Pre-Meal BG 215 - 239 give 4 units. For Pre- Meal BG 240 - 264 give 5 units. For Pre-Arlin l BG 265 - 289 give 6 units. For Pre-Arlin l BG 290 - 314 give 7 units. For Pre- Meal BG 315 - 339 give 8 units. For Pre-Meal BG 340 - 364 give 9 units. For Pre- Meal BG = or > 365 give 10 units To be giv en with prandial insulin, and based on p re-meal blood glucose. Notify MD if glucose > or = 350 mg/dL after administration of correction dose. If given at mealtime, must be administered 5 min before meal or immediately after. insulin Aspart (NovoLOG) inj (RAPID ACTING) (CANCELED) 2112 (Not Given - Provider: Sintia Ahuja RN - Reason: Order parameters not met) 2117 (Given - Provider: Sintia Ahuja RN) 1-7 Units, Subcutaneous, AT BEDTIME, Fir st dose on Sun02/02/16 at 2200, HIGH INSULIN RESISTANCE DOSING Do Not give Bedtime Correction Insulin if BG < 200. For BG 200 - 224 give 1 units. For BG 225 - 2 49 give 2 units. For BG 250 - 274 give 3 units. For BG 275 - 299 give 4 units. For BG 300 - 324 give 5 units. For BG 325 - 349 give 6 units. For BG = or > 350 give 7 units. Notify MD if glucose > or = 350 mg/dL after administration of c orrection dose. If given at mealtime, must be administered 5 min before meal or immediately after. insulin glargine (LANTUS) injection 7 Units (CANCELED) 2116 (Given - Provider: Sintia Ahuja RN) 7 Units, Subcutaneous, AT BEDTIME, First dose on Sun02/03/16 at 2 200 lidocaine (XYLOCAINE) 2 % 15 mL, alum & mag hydroxide-simethicone (MYLANTA ES/MAALOX ES) 15 mL GI Cocktail (COMPLETED) 2117 (Given - Provider: Sintia Ahuja, SIENNA) 30 mL, Oral, ONCE, On Sun02/02/16 at 2100, For 1 dose lisinopril (PRINIVIL,ZESTRIL) tablet 20 mg (CANCELED) 0936 (Not Given - Provider: Nieves Granado RN - Reason: Other) 0759 (Given - Provider: Anel Patterson RN)0900 (Canceled Entry - Provider: nAel Patterson RN) 20 mg, Oral, DAILY, First dose on Sun02/03/16 at 0900 metoprolol (TOPROL-XL) 24 hr tablet 50 mg (CANCELED) 0935 (Given - Provider: Nieves Granado RN) 50 mg, Oral, DAILY, First dose on 02/13 at 0900, DO NOT CRUSH. Tablet may be split in half along score line. For Adults, Hold if Heart Rate less than 60 bpm. pantoprazole (PROTONIX) EC tablet 20 mg (CANCELED) 0651 (Given - Provider: Irish Hicks RN) 20 mg, Oral, EVERY MORNING BEFORE BREAKF AST, First dose on Sun02/04/16 at 0730, DO NOT CRUSH. Therapeutic interchange for Nexium. pantoprazole (PROTONIX) EC tablet 40 mg (CANCELED) 0856 (Given - Provider: Nieves Granado RN) 40 mg, Oral, EVERY MORNING BEFORE BREAKFAST, First dose on Sun at 0730 pravastatin (PRAVACHOL) tablet 80 mg (CANCELED) 2155 ( Given - Provider: Sintia Ahuja RN) 2117 (Given - Provider: Sintia Ahuja RN) 80 mg, Oral, AT BEDTIME, First dose on Sun02/02/16 at 2200 sodium chloride (PF) 0.9% PF flush 10 mL (COMPLETED) 1519 (Given - Provider: Slava Mittal) 10 mL, Intravenous, ONCE, On Sun02/04/16 at 1530, For 1 dose sodium chloride (PF) 0.9% PF flush 3 mL (CANCELED) 1820 (Not Given - Provider: Sintia Ahuja RN - Reason: IV Infusing) 0653 (Given - Provider: Irish Hicks RN)1527 (Not Given - Provider: Anel Patterson RN - Reason: Other) 3 mL, Intracatheter, EVERY 8 HOURS, Firs t dose on Sun02/03/16 at 1745, And Q1H PRN, to lock peripheral IV dormant line., Cardiac Post-procedure sodium chloride (PF) 0.9% PF flush 3 mL (CANCELED) 1215 (Given - Provider: Anel Patterson RN) 3 mL, Intracatheter, EVERY 8 HOURS, Firs t dose on Sun02/04/16 at 1200, And Q1H PRN, to lock peripheral IV dormant line., Cardiac Pre-procedure sucralfate (CARAFATE) suspension 1 g (CANCELED) 1211 (Not Given - Provider: Nieves Granado RN - Reason: NPO)1818 (Given - Provider: Sintia Ahuja RN) 0651 (Given - Provider: Irish hernandez RN)1216 (Not Given - Provider: Anel Patterson RN - Reason: NPO)1720 (Not Given - Provider: Anel Wheatley RN - Reason: Other - Comment: Pt ate late lunch at 4:00 after EP procedure.) 1 g, Oral, 3 TIMES DAILY BEFORE MEALS, F irst dose on Sun02/03/16 at 1200, Shake well. Recommended to take before meals. sulfur hexafluoride microsphere (LUMASON) 60.7-25 MG i njection 5 mL (COMPLETED) 1519 (Given - Provider: London Mittal) 5 mL, Intravenous, ONCE, On Sun02/04/16 at 1530, For 1 dose Continuous Medication Order 02/02/2016 02/03/2016 02/04/2016 0.45% sodium chloride infusion (CANCELED) 1214 (New Bag - Provider: Anel Patterson RN) at 30 mL/hr, Intravenous, CONTINUOUS, St art 2 hours pre-procedure and then per provider direction intra-procedure. Pre-procedurally for CAR electrophysiology studies., Cardiac Pre-procedure, Starting on Sun02/04/16 at 1200, Until Sun02/04/16 at 1430 0.9% sodium chloride infusion (CANCELED) 2155 (New Bag - Provider: Sintia Ahuja, SIENNA) 0004 (Rate/Dose Verify - Provider: Nicole Mak RN)0805 (Rate/Dose Verify - Provider: Nieves Granado, SIENNA) at 75 mL/hr, Intravenous, CONTINUOUS, St arting on Sun02/02/16 at 2130, Until Sun02/03/16 at 2333 0.9% sodium chloride infusion (CANCELED) 0935 (New Bag - Provider: Nieves Grandao, SIENNA) at 150 mL/hr, Intravenous, CONTINUOUS, 1 50 mL/hr IV for 2 hours prior to cardiac prosthetic lab technician procedure, then decrease to 75 mL/hr to run throughout the procedure. Start at 0800 for inpatients. IF PATIENT I S RECEIVING RENAL DIALYSIS, RN to reduce rate of 0.9 % sodium chloride IV solution to 10 mL /hour (TKO) IV infusion to prevent fluid overload., Cardiac Pre-procedure, Starting on Sun02/03/16 at 0930, Until Sun02/03/16 at 1652 0.9% sodium chloride infusion (CANCELED) 1743 (New Bag - Provider: Sintia Ahuja, SIENNA) at 75 mL/hr, Intravenous, CONTINUOUS, Ad director corporate security over 4 Hours, or until patient is ambulating. IF PATIENT IS RECEIVING RENAL DIALYSIS, RN to reduce rate of 0.9% sodium chloride IV solution to 10 mL /arely r (TKO) to prevent fluid overload, Cardi ac Post-procedure, Starting on Sun02/03/16 at 1745, Until Sun02/03/16 at 2334 heparin infusion 25,000 units in 0.45% NaCl 250 mL (CA NCELED) 2127 (New Bag - Provider: Sintia Ahuja RN) 0004 (Rate/Dose Verify - Provider: Nicole Mak RN)0541 (Rate/Dose Change - Provider: Catherine Mak, SIENNA)0804 (Rate/Dose Verify - Provider: Nieves Granado, SIENNA)1254 (New Bag - Provider: Jv Granado RN) 1,350 Units/hr (13.5 mL/hr), Intravenous , CONTINUOUS, Starting on Sun02/02/16 at 2130, Goal level of: 0.15-0.35 IU/mL Xa=0.29 , continue @ 1350 units/hr and recheck in am 5/6 Heparin dosed per Nipomo P 1525 (S topped - Provider: Paulina Steward RN) rotocol. Monitor platelets every three days while on anticoagula tion therapy. nitroglycerin 50 mg in D5W 250 mL (adult std) infusion (CANCELED) 2123 (New Bag - Provider: Sintia Ahuja, SIENNA) 0004 (Rate/Dose Verify - Provider: Nicole Mak RN)0546 (Rate/Dose Change - Provider: Catherine Mak RN)0804 (Rate/Dose Change - Provider: Nieves Granado RN)0858 (Rate/Dose Change - Prov ider: Nieves Granado RN) 0.07-1.49 mcg/kg/min ? 134.6 kg (2.8266-60.1662 mL/hr, rounded to 2.8-60.2 mL/hr), Intravenous, CONTINUOUS, Starting on Sun02/02/16 at 2130, Start at lowest dose ordered. Titrate by 0.1 mcg/kg/min every 1526 (Stopped - Provider: Roseanne Steward RN) 5 minutes to keep systolic blood pressu re less than 120 mmHg and greater than 90 mmHg and control angina. Hold for systolic blood pressure less than 85 mmHg. Notify provider if patient continues to have chest pain. Max Dose: 2 mcg/kg/min PRN Medication Order 02/02/2016 02/03/2016 02/04/2016 acetaminophen (TYLENOL) tablet 325-650 mg (CANCELED) 1902 (Given - Provider: Sintia Ahuja RN) 325-650 mg, Oral, EVERY 4 HOURS PRN, mil d pain, headaches, Starting on Sun02/03/16 at 1740, Maximum acetaminophen dose from all sources = 75 mg/kg/day not to exceed 4 grams/day., Cardiac Post-procedure bacitracin in 0.9% NaCl 500 mL Bottle for irrigation 25,000 Unit s (COMPLETED) 1348 (Given by Other - Provider: Cass Amor RN) ONCE PRN, for pacemaker/defibrillator po cket antibiotic irrigation. , Starting on Sun02/04/16 at 1310, For 1 dose, Irrigate pacemaker/defibrillator pocket when verbally ordered by prescriber during procedure., Cardiac Intra-procedure bupivacaine HCl 0.25 % preservative free injection SOLN 25-75 mg (COMPLETED) 1330 (Given by Other - Provider: Cass Amor RN)1335 (Given by Other - Provider: Cass Amor RN) 25-75 mg (10-30 mL), Intradermal, ONCE P RN, for implants; for local anesthesia as verbally ordered by prescriber during procedure., Starting on Sun02/04/16 at 1310, For 1 dose, The provider administers t he medication. Dose may be int o smaller doses for administration., Cardiac Intra-procedure FentaNYL Citrate (PF) (SUBLIMAZE) injection 25-50 mcg (CANCE LED) 1526 (Given - Provider: Lazaro Crenshaw, SIENNA)1551 (Given - Provider: Lazaro Crenshaw, RN)1613 (Given - Provider: Lazaro Crenshaw, RN) 25-50 mcg, Intravenous, EVERY 2 MIN PRN, moderate to severe pain, other, when verbally ordered by prescriber during the procedure., Starting on Sun02/03/16 at 1544, Doses can be exceeded under direct ove rsight of the patient by physician., Cardiac Intra-procedure FentaNYL Citrate (PF) (SUBLIMAZE) injection 25-50 mcg (CANCELED) 1318 (Given - Provider: Cass Amor RN)1325 (Given - Provider: Cass Amor RN) 25-50 mcg, Intravenous, EVERY 2 MIN PRN, severe pain (7-10), when verbally ordered by the prescriber during the procedure, Starting on Sun02/04/16 at 1310, Doses can be exceeded under direct oversight of patient by physician., Cardiac Intra-procedure heparin (porcine) injection 1,000-10,000 Units (CANCELED) 1604 (Given - Provider: Lazaro Crenshaw RN) 1,000-10,000 Units, Intravenous, EVERY 5 MIN PRN, other, bolus dose, Starting on Sun02/03/16 at 1544, when verbally ordered by prescriber during procedure. Up to a max of 25,000 units. Physician may requ est an additional bolus., Cardiac Intra-procedure lidocaine (PF) (XYLOCAINE) 1 % injection 10-100 mg (COMPLETE D) 1550 (Given by Other - Provider: Lazaro Crneshaw RN - Comment: RFG) 10-100 mg (1-10 mL), Subcutaneous, ONCE PRN, For local anesthesia for groin puncture as verbally ordered by prescriber during the procedure., Starting on Sun02/03/16 at 1544, For 1 dose, The provider adm inisters the medication. Dose may be sep arated into smaller doses for administration., Cardiac Intra-procedure lidocaine (PF) (XYLOCAINE) 1 % injection 100-300 mg (COMPLETED) 1330 (Given by Other - Provider: Cass Amor RN)1335 (Given by Other - Provider: Cass Amor RN) 100-300 mg (10-30 mL), Intradermal, ONCE PRN, for implants; for local anesthesia as verbally ordered by precriber during the procedure., Starting on Sun02/04/16 at 1310, For 1 dose, The provider administ ers the medication. Dose may be separate d into smaller doses for administration, Cardiac Intra-procedure midazolam (VERSED) injection 0.5-2 mg (CANCELED) 1526 (Given - Provider: Lazaro Crenshaw, RN)1552 (Given - Provider: Lazaro Crenshaw, RN)1614 (Given - Provider: Lazaro Crenshaw, RN) 0.5-2 mg, Intravenous, EVERY 2 MIN PRN, other, when verbally ordered by prescriber during the procedure., Starting on Sun02/03/16 at 1544, Doses can be exceeded under direct oversight of the patient by physician., Cardiac Intra-procedure midazolam (VERSED) injection 0.5-2 mg (CANCELED) 1320 (Given - Provider: Cass Amor, RN)1325 (Given - Provider: Cass Amor, RN) 0.5-2 mg, Intravenous, EVERY 2 MIN PRN, sedation, when verbally ordered by the prescriber during the procedure, Starting on 02/04/16 at 1310, Doses can be exceeded under direct oversight of patient by physician., Cardiac Intra-procedure sodium chloride (PF) 0.9% PF flush 3 mL (CANCELED) 0653 (Given - Provider: Irish Hicks RN) 3 mL, Intracatheter, EVERY 1 HOUR PRN, l ine flush, Starting on Ana 02/03/16 at 1740, for peripheral IV flush post IV meds, Cardiac Post-procedure documented in this encounter Care Teams Religious Activities Director Relationship Specialty Start Date End Date Herminia Coleman MD PCP - General Family Practice 02/01/12 04/12/17 documented as of this encounter
--- OUTSIDE RECORDS SUMMARY | 2022-06-22 08:59 | XMS_ITS | Encounter Summary ---
:1940 Author Organization [facility] Address [address] [place] [address] Care Team Providers Name Role Phone Herminia Coleman MD Primary Care Provider Graham Licona MD Primary Care Provider [facility] Primary Care Provider [phone] Slava Hernandez-C Primary Care Provider Timothy Smith MD Unavailable Graham Licona MD Primary Care Provider Encounter Details Date Type Department Care Team Description 02/10/2013 Office Visit-[facility] Heart Rafael Smith MD [place] [id number] [place] [address] [place] [address] [phone] Social History Tobacco Use Types Packs/Day Years Used Date Never Smoker Alcohol Use Standard Drinks/Week Comments Yes 0 (1 standard drink = 0.6 oz pure alcoho l) Sex Assigned at Date Recorded Not on file documented as of this encounter Progress Notes Timothy Smith MD - 02/12/2013 1:31 PM CDT Progress Note Created by: Timothy Smith M.D. DATE: 02/10/2013 RADHA VILLA DATE OF : 1940 AGE: [age] years old Referring Physician: HERMINIA COLEMAN Referring Clinic: [facility] CURRENT DIAGNOSES 1. - Hyperlipidemia, 272.4 2. - Hypertension, 401.1 3. WA-Recent Unspecified, 410.91 4. - CAD, 414.00 5. [...] of - Atrial Flutter HISTORY OF PRESENT ILLNESS I had the pleasure of seeing Mr. Villa for evaluation of atrial flutter. This is a 72-year-old [place] with a history of coronary artery disease and coronary bypass surgery that was performed years ago in another institution. The patient presented to [facility] last year with chest pain. He was found to be in atrial flutter. Because of troponin elevation the attention was focused on acute coronary syndrome. He underwent coronary angiography and was found to have no significant stenosis. Therefore, he did not undergo any intervention. The patient was treated medically and was discharged from the hospital with no Cardiology followup plan. Subsequently he went to [facility] and underwent a DC cardioversion. Apparently, sometime in the recent past he went back to atrial tachyarrhythmia. He could not tell the exact time when he went back to atrial flutter. Symptomatically, he currently has recurrent chest pain with exertion such as walking more than two blocks. He also has shortness of breath. He feels palpitations quite frequently but he has no near-syncope or syncope. The patient has been anticoagulated with warfarin. He is also on aspirin. He is currently on metoprolol 50 mg q.d. The EKG from your office on January 15 showed atrial flutter with controlled ventricular rate when he is at rest. His other medical conditions include severe obesity, sleep apnea on CPAP, hypertension, and hyperlipidemia. His echocardiography in January of last year reported normal ejection fraction. On examination today the blood pressure was 110/50, body weight 322 pounds, and heart rate 76 beats per minute. The eyes and ENT were unremarkable. The lungs had no crackles or wheezing. The cardiac rhythm was regular and the heart sounds were normal. The heart sounds were remote. There was no murmur.The abdominal examination showed severe obesity. He had trace bilateral leg edema. Today's EKG showed atrial flutter with controlled ventricular rate when he was at rest. There was 1 PVC recorded as well. PAST HISTORY Past Medical Illnesses: hyperlipidemia, obesity, sleep apnea on CPAP, hypertension Past Cardiac Illnesses: coronary artery disease, sp CABG, atrial flutter, S/P myocardial infarction LVEF not documented FAMILY HISTORY: Father - Age 80, ; Mother - Age 80, ; SOCIAL HISTORY Alcohol Use - does not use alcohol; Smoking - never smoked; Diet - regular diet; REVIEW OF SYSTEMS GENERAL denies recent weight loss, weight gain, fever or chills or change in exercise tolerance. INTEGUMENTARY denies any change in hair or [...] disorders. PHYSICAL EXAMINATION VITAL SIGNS: Blood Pressure: 110/50Sitting, Left arm, large cuff Pulse- 76.00/min. Weight- 322.00 lbs. Height- 71 BMI Measurement: 45 CONSTITUTIONAL cooperative, alert and oriented,well developed, well [...] time, person and place. MEDICATIONS UPDATED/STARTED TODAY: fenofibrate 160 mg tablet, 1 p.o. daily, #0 (Zero) isosorbide mononitrate 30 mg tablet extended release 24 hr, 1 p.o. PRN as Directed, #0 (Zero) lisinopril 5 mg tablet, 1 p.o. daily, #0 (Zero) metoprolol succinate 50 mg tablet extended release 24 hr, 1 p.o. daily, #0 (Zero) Nitrostat 0.4 mg tablet, sublingual, 1 p.o. PRN as Directed, #0 (Zero) pantoprazole 40 mg tablet,delayed release (DR/EC), 1 p.o. daily, #0 (Zero) pravastatin 80 mg tablet, 1 p.o. daily, #0 (Zero) pseudoephedrine HCl 60 mg tablet, 90 mg po daily, #0 (Zero) warfarin 5 mg tablet, Take as Directed, #0 (Zero) MEDICATIONS REFILLED/STOPPED TODAY: Aspir-81 81 mg tablet,delayed release (DR/EC) 1 p.o. daily #0 (Zero) Physician Order IMPRESSIONS/PLAN Mr. Villa is a 72-year-old white male with severe obesity, hypertension, hyperlipidemia, and sleep apnea. He has underlying coronary artery disease with preserved LV ejection fraction. He had a previous coronary bypass surgery and the last coronary angiography showed no severe stenosis. He currently is in persistent atrial flutter. At rest his ventricular rates seems to be controlled. I suspect that his chest pain and shortness of breath with exertion are contributed at least partially by atrial flutter with rapid ventricular rate. In addition, the patient is bothered by recurrent palpitations. At this point I would recommend an EP study and catheter ablation of atrial flutter. The risks and benefits of flutter ablation were explained to the patient who expressed understanding and consented for the procedure. Meanwhile, I have asked him to discontinue aspirin for concern of increased risk of bleeding on top of warfarin. As for his chest discomfort with exertion we need to reassess the situationafter successful ablation of atrial flutter. If he continues to have chest pain with exertion, I would repeat a nuclear scan before a repeat coronary angiography. It is my pleasure to participate in the care of this patient. If you have any questions, please do not hesitate to contact me. TODAYS ORDERS 1. 12 Lead EKG Today 2. Ablation of Atrial Flutter PADMINI Smith M.D. documented in this encounter Plan of Treatment Upcoming Encounters Date Type Specialty Care Team Description 06/26/2022 Ancillary Procedure Cardiology Seng Canchola MD [address] [place] [address] [place] [id number] (Wo rk) 08/16/2022 Ancillary Procedure Cardiology Timothy Smith MD [address] [place] [phone] (Wo rk) 08/16/2022 Office Visit Cardiology Timothy Smith MD [address] [place] [id number] (Wo rk) documented as of this encounter Visit Diagnoses Not on filedocumented in this encounter Care Teams Senior Medical Technologist Relationship Specialty Start Date End Date Herminia Coleman, PCP - General Family Practice 02/01/1203/31 Graham Licona MD PCP - General Family Practice 04/13/17 01/15/18 [facility] [address] [facility] [place] [address] Vinny Reinoso PCP - General 01/16/18 07/01/[address] [address] Ghere, Robbin D, PCP - General Physician Cardiac Cath Technician 07/02/1806/02 PA-C [facility] [address] [place] [address] Graham Licona MD PCP - General Family Medicine 06/30/21 [facility] [address] [place] [address] Timothy Smith MD Assigned Heart and 07/23/20 [address] [facility] Vascular Provider [address] [place] [id number] documented as of this encounter
--- OUTSIDE RECORDS SUMMARY | 2022-06-22 08:59 | XMS_ITS | Encounter Summary ---
:1940 Author Organization [facility] Address [address] [place] [address] Care Team Providers Name Role Phone Nas Cardenas MD Primary Care Provider Encounter Details Date Type Department Care Team Description 02/25/2013 [facility] Guera Yap, Atrial flutter (H) [facility] RN (Primary Dx) Heart Care [address] [place] [id number] Social History Tobacco Use Types Packs/Day Years [...] [address] [place] [address] [place] [id number] (Wo rk) 08/16/2022 Ancillary Procedure Cardiology Timothy Smith MD [address] [place] [id number] (Wo rk) 08/16/2022 Office Visit Cardiology Timothy Smith MD [address] [place] [id number] (Wo rk) documented as of this encounter Visit Diagnoses Diagnosis Atrial flutter (H) - Primary Atrial flutter documented in this encounter Care Teams Bounty Hunter Relationship Specialty Start Date End Date Nas Cardenas MD PCP - General Family Practice 02/01/12 04/12/17 documented as of this encounter
--- OUTSIDE RECORDS SUMMARY | 2022-06-22 08:59 | XMS_ITS | Encounter Summary ---
:1940 Author Organization [facility] Address [address] [place] [address] Care Team Providers Name Role Phone Nas Cardenas MD Primary Care Provider Encounter Details Date Type Department Care Team Description 02/27/2013 Hospital Encounter [facility] Timothy Smith MD Atrial flutter (H) [facility] [address] (Primary D x) [address] [place] [address] [place] [phone] Social History Tobacco Use Types Packs/Day Years Used Date Never Smoker Alcohol Use Standard Drinks/Week Comments Yes 0 (1 standard drink = 0.6 oz pure alcoho l) Sex Assigned at Date Recorded Not on file documented as of this encounter Last Filed Vital Signs Vital Sign Reading Time Taken Comments Blood Pressure 113/73 02/27/2013 6:00 PM CDT Pulse 84 02/27/2013 6:00 PM CDT Temperature 36.2 ??C (97.2 ??F) 02/27/2013 11:17 AM CDT Respiratory Rate 16 02/27/2013 2:45 PM CDT Oxygen Saturation 93% 02/27/2013 6:00 PM CDT Inhaled Oxygen Concentration - - Weight 145.8 kg (321 lb 6.4 oz) 02/27/2013 11:17 AM CDT Height 180.3 cm (5' 11) 02/27/2013 11:17 AM CDT Body Mass Index 44.83 02/27/2013 11:17 AM CDT documented in this encounter Discharge Instructions Discharge InstructionsEric Ann Marie [place], RN - 02/27/2013 5:26 PM CDT 1. See an EP WEIGHT CONTROL ENGINEER in 1 month, with ECG 2. See Dr. Smith in 3 months, with ECG EP (Electrophysiology) Study or Ablation Discharge Instructions Patient Name: Haris Villa Today's Date: February 27, 2013 When you go home, have an adult stay with you until the next day. Care of your puncture site: In the first 24 hours: If you cough or sneeze, press firmly on the puncture site. The day after your test or treatment: ??? You may take a shower or tub bath. ??? You may remove the Band-Aid the next day. Bleeding is rare. If bleeding occurs, press firmly on the site while lying down and call 911. Activity Because you have received medicine to sedate you, you should not drive for 48 hours. To prevent bleeding, for the next 48 hours: ?? No lifting more than 10 pounds. ?? No housework, yard work or any activity that makes you sweat. ?? No stooping or squatting. ?? No sex. ?? No alcohol. Ask your doctor when you can return to work. Most people return to normal activity in 3 to 5 days. Discomfort You may have bruising, soreness or a hardening at the puncture site. This is normal. If you have pain or shortness of breath, you may take Advil (ibuprofen) or Tylenol (acetaminophen). Call the clinic and talk to a nurse if you have: ?? An increase in pain, fluid or swelling at the site. ?? A temperature of 101?? F (38.3?? C) or higher when taken under the tongue. ?? Shortness of breath or chest pain that is not relieved by Advil or Tylenol. ?? Premature heartbeats that occur often and lead to a return of symptoms. Heart rhythms You may have some premature heartbeats. These feel very strong. They may make you feel that the fastheart rhythm (tachycardia) is going to start again. Give it time. The premature beats should occur less often. Questions? Call [facility] at [phone]. documented in this encounter Medications at Time of Discharge Medication Sig Dispensed Refills Start Date End Date ACYCLOVIR 400 MG OR TABS 1 TABLET 3 TIMES 30 6 04/25 DAILY-as need for Cold sores fenofibrate 160 MG tablet Take 160 mg by 0 mouth daily. NITROGLYCERIN SL Place 0.4 mg under 0 12/29/2016 the tongue every 5 minutes as needed PANTOPRAZOLE SODIUM PO Take 40 mg by 0 07/07/2020 mouth every morning (before breakfast). pravastatin (PRAVACHOL) 80 Take 80 mg by 0 06/30/2021 MG tablet mouth At Bedtime lisinopril Take 5 mg by mouth 0 02/04/20122015 (PRINIVIL,ZESTRIL) 5 MG daily. tablet metoprolol (TOPROL-XL) 50 Take 50 mg by 0 12/20/2015 MG 24 hr tablet mouth 2 times daily metoprolol (TOPROL-XL) 50 Take 100 mg by 0 201112/10/2014 MG 24 hr tablet mouth daily. PSEUDOEPHEDRINE HCL Take 60 mg by 0 mouth daily. warfarin (COUMADIN) 5 MG Take 1 tablet by 10 tablet 1 02/0312/10/2014 tabletIndications: Atrial mouth daily. flutter (H) documented as of this encounter Progress Notes Timothy Smith MD - 02/28/2013 11:18 AM CDT Timothy Smith MD - 02/27/2013 2:08 PM CDT Typical atrial flutter. Successful ablation. No complications. May go home around 7pm. See discharge instructions for follow up Plan. Ann Marie Reyes RN - 02/27/2013 12:41 PM CDT Patient is here for Atrial Flutter Ablation. INR is 2.66, which was paged to Dr. Smith. Patient, spouseand daughters watched ablation video. Post ablation patient is in sinus rhythm, pain free. Patient taking po well, voided. Patient states understanding of discharge instructions. 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 documented in this encounter H&P Notes Timothy Smith MD - 02/26/2013 2:35 PM CDT documented in this encounter Plan of Treatment Upcoming Encounters Date Type Specialty Care Team Description 06/26/2022 Ancillary Procedure Cardiology Seng Canchola MD [address] [place] [id number] (Wo rk) 08/16/2022 Ancillary Procedure Cardiology Timothy Smith MD [address] [place] [id number] (Wo rk) 08/16/2022 Office Visit Cardiology Timothy Smith MD [address] [place] [phone] (Wo rk) documented as of this encounter Procedures Procedure Name Priority Date/Time Associated Diagnosis Comme nts EKG 12-LEAD, Routine 02/27/2013 2:47 PM Results f or this TRACING ONLY CDT procedure are i n the results section. HIM IMAGING SCAN Routine 02/27/2013 2:16 PM CDT EKG 12-LEAD, Routine 02/27/2013 12:40 PM Results for this TRACING ONLY CDT procedure are i n the results section. INR STAT 02/27/2013 11:45 AM Results for this CDT procedure are i n the results section. BASIC METABOLIC STAT 02/27/2013 11:45 AM Resul ts for this PANEL CDT procedure are i n the results section. CBC WITH PLATELETS STAT 02/27/2013 11:45 AM Re sults for this CDT procedure are i n the results section. documented in this encounter Results EKG 12-lead, tracing only (02/27/2013 2:47 PM CDT) [facility] Method Time Signature Interpretation ECG Click View RADIOLOGY Image link RESULTS to view waveform and result Specimen (Source) Anatomical Collection Method Collection Time Re ceived Time Location / / Volume Laterality 02/27/2013 2:47 PM CDT Timothy Smith MD ECG ORDERABLES Performing Organization Address City/[facility]/ZIP Code Phon e Number RADIOLOGY RESULTS ATRIAL FLUTTER REPORT - HIM Imaging Scan (02/27/2013 2:16 PM CDT) Anatomical Region Laterality Modality Other Narrative This result has an attachment that is no t available. Timothy Smith MD IMG DIAGNOSTIC IMAGING ORDER ANN EKG 12-lead, tracing only (02/27/2013 12:40 PM CDT) [facility] Method Time Signature Interpretation ECG Click View RADIOLOGY Image link RESULTS to view waveform and result Specimen (Source) Anatomical Collection Method Collection Time Re ceived Time Location / / Volume Laterality 02/27/2013 12:40 PM CDT Timothy Smith MD ECG ORDERABLES Performing Organization Address City/[facility] Phon e Number RADIOLOGY RESULTS (ABNORMAL) INR (02/27/2013 11:45 AM CDT) athologist Signature INR 2.66 (H) 0.86 - 1.14 [facility] Specimen Anatomical Collection Method Collection Time Receive d Time (Source) Location / / Volume Laterality Blood specimen 02/27/2013 11:45 3 (specimen) AM CDT 11:54 AM CDT Timothy Smith MD LAB - BLOOD ORDERABLES Performing Organization Address City/[facility] Phon e Number [facility] [address] [address] [phone] [facility] CBC with platelets (02/27/2013 11:45 AM CDT) athologist Signature WBC 6.0 4.0 - 11.0 [place] 10e9/L [facility] RBC Count 4.89 4.4 - 5.9 [place] 10e12/L [facility] Hemoglobin 15.6 13.3 - [facility] 17.7 g/dL [facility] Hematocrit 46.4 40.0 - [facility] 53.0 % [facility] MCV 95 78 - 100 [place] fl [facility] MCH 31.9 26.5 - [facility] 33.0 pg [facility] MCHC 33.6 31.5 - [facility] 36.5 g/dL [facility] RDW 14.0 10.0 - [place] 15.0 % [facility] Platelet Count 191 150 - 450 [place] 10e9/L [facility] Specimen Anatomical Collection Method Collection Time Receive d Time (Source) Location / / Volume Laterality Blood specimen 02/27/2013 11:45 3 (specimen) AM CDT 11:54 AM CDT Timothy Smith MD LAB - BLOOD ORDERABLES Performing Organization Address City/State/ZIP Code Phon e Number [facility] [address] [place] [address] [facility] (ABNORMAL) Basic metabolic panel (02/27/2013 11:45 AM CDT) P athologist Signature Sodium 139 133 - 144 [place] mmol/L [facility] Potassium 4.3 3.4 - 5.3 [place] mmol/L [facility] Chloride 102 94 - 109 [place] mmol/L [facility] Carbon Dioxide 24 20 - 32 [place] mmol/L [facility] Anion Gap 12 6 - 17 [place] mmol/L [facility] Glucose 183 (H) 60 - 99 [place] mg/dL [facility] Urea Nitrogen 20 7 - 30 [place] mg/dL [facility] Creatinine 0.79 0.66 - [facility] 1.25 mg/dL [facility] GFR Estimate >90 >60 [place] mL/min/1.[address] [facility] GFR Estimate If >90 >60 [place] Black mL/min/1.[address] LAB Calcium 8.7 8.5 - 10.4 [place] mg/dL [facility] Specimen Anatomical Collection Method Collection Time Receive d Time (Source) Location / / Volume Laterality Blood specimen 02/27/2013 11:45 3 (specimen) AM CDT 11:54 AM CDT Timothy Smith MD LAB - BLOOD ORDERABLES Performing Organization Address City/State/ZIP Code Phon e Number [facility] [address] [place] [address] [facility] documented in this encounter Visit Diagnoses Diagnosis Atrial flutter (H) - Primary Atrial flutter documented in this encounter Administered Medications Inactive Administered Medications - up to 3 most recent administrations Medication Order MAR Action Action Date Dose Rate Site 0.45 % sodium chloride IV New Bag 02/27/2013 11:58 AM 1,000 mLs 7 5 mL/hr solution CDT at 75 mL/hr, Intravenous, CONTINUOUS, Start 2 hours pre-procedure and then per MD direction intra-procedure. Pre-procedurally for CAR electrophysiology studies., Cardiac Pre-procedure, Starting on Ana 02/27/13 at 1145, Until Ana 02/27/13 at 1432 fentaNYL (SUBLIMAZE) injection 25-50 mcg Given 02/27/2013 1:31 PM CDT 50 mcg 25-50 mcg, Intravenous, EVERY 2 MIN PRN, severe pain (7-10), when verbally ordered by the prescriber during the procedure, Starting on Ana 02/27/13 at 1329, Doses can be exceeded under direct oversight of patient by physician., Cardiac Intra-procedure midazolam (VERSED) injection 0.5-2 mg Given 02/27/2013 1:32 PM CDT 1 mg 0.5-2 mg, Intravenous, EVERY 2 MIN PRN, sedation, when verbally ordered by the prescriber during the procedure, Starting on Ana 02/27/13 at 1329, Doses can be exceeded under direct oversight of patient by physician., Cardiac Intra-procedure documented in this encounter Active and Recently Administered Medications Times are shown in CDT. Continuous Medication Order 02/25/2013 02/26/2013 02/27/2013 0.45 % sodium chloride IV solution (CANCELED) 1158 (New Bag - Provider: Ann Marie Reyes RN) at 75 mL/hr, Intravenous, CONTINUOUS, St art 2 hours pre-procedure and then per MD direction intra-procedure. Pre-procedurally for CAR electrophysiology studies., Cardiac Pre-procedure PRN Medication Order 02/25/2013 02/26/2013 02/27/2013 fentaNYL (SUBLIMAZE) injection 25-50 mcg (CANCELED) 1331 (Given - Provider: Marissa Babin RN) 25-50 mcg, Intravenous, EVERY 2 MIN PRN, Starting Ana 02/27/13 at 1329, severe pain, when verbally ordered by the prescriber during the procedure, Doses can be exceeded under direct oversight of patient by physician., Cardiac Intra-procedure midazolam (VERSED) injection 0.5-2 mg (CANCELED) 1332 (Given - Provider: Marissa Babin RN) 0.5-2 mg, Intravenous, EVERY 2 MIN PRN, Starting Ana 02/27/13 at 1329, sedation, when verbally ordered by the prescriber during the procedure, Doses can be exceeded under direct oversight of patient by physician., Cardiac Intra-procedure documented in this encounter Care Teams Stage Producer Relationship Specialty Start Date End Date Nas Cardenas MD PCP - General Family Practice 02/01/12 04/12/17 documented as of this encounter
--- OUTSIDE RECORDS SUMMARY | 2022-06-22 08:59 | XMS_ITS | Encounter Summary ---
:1940 Author Organization [facility] Address [address] [place] [address] Care Team Providers Name Role Phone Nas Cardenas MD Primary Care Provider Reason for Referral - Closed Specialty Diagnoses / Procedures Referred By Contact Refer red To Contact Ankur Smith MD [address] [place] [id number] Referral ID Status Reason Start Date Expiration Date Visits Requ ested Visits Authorized [id number] Closed 12/10/2015 06/07/2016 1 1 Reason for Visit Reason Comments Annual Visit feeling well - ekg done Encounter Details Date Type Department Care Team Description 12/10/2014 Office Visit [facility] Ankur Smith MD Atrial flutter (H) [facility] [place] [address] (Primary Dx) [address] [phone] [facility] [address] [place] [address] [place] [phone] Social History Tobacco Use Types Packs/Day Years Used Date Never Smoker Alcohol Use Standard Drinks/Week Comments Yes 0 (1 standard drink = 0.6 oz pure alcoho l) Sex Assigned at Date Recorded Not on file documented as of this encounter Last Filed Vital Signs Vital Sign Reading Time Taken Comments Blood Pressure 124/84 12/10/2014 2:07 PM CDT Pulse 72 12/10/2014 2:07 PM CDT Temperature - - Respiratory Rate - - Oxygen Saturation - - Inhaled Oxygen Concentration - - Weight 142.4 kg (314 lb) 12/10/2014 2:07 PM CDT Height 181.6 cm (5' 11.5) 12/10/2014 2:07 PM CDT Body Mass Index 43.18 12/10/2014 2:07 PM CDT documented in this encounter Progress Notes Ankur Smith MD - 12/10/2014 2:31 PM CDT December 10, 2014 Nas Cardenas MD [facility] [address] [place] [address] RE: Radha Villa : [address] Cardenas: I saw Mr. Villa for followup of atrial flutter and coronary artery disease. He has had successful ablation of a right-sided atrial flutter on 02/27/2013. For the last year and half, he has not had any recurrent atrial fibrillation or flutter. He is known to have coronary artery disease with a small branch stenosis and normal LV function. He has not had any angina or congestive heart failure. The patient was diagnosed to have a right eye melanoma. He got treatment at [facility] and has had some impaired vision of the right eye. The melanoma is supposed to be in remission at the present time. Symptomatically, he denies shortness of breath, fatigue, palpitation or dizziness. PHYSICAL EXAMINATION: VITAL SIGNS: On examination, blood pressure was 124/84, heart rate 72 beats per minute, body weight up to 314 pounds. LUNGS: Clear. CARDIAC: The cardiac rhythm was regular with frequent premature contractions. The heart sounds were normal, and there was no murmur. ABDOMEN: Showed severe obesity. EXTREMITIES: The legs had no edema. EKG shows sinus rhythm with first-degree AV block. He had relatively frequent outflow tract PVCs. ASSESSMENT AND RECOMMENDATIONS: Mr. Villa has no complaints at the present time. His blood pressure is acceptable, and the weight is trending up. He has no evidence of recurrent atrial fibrillation up to this point. He does have relatively frequent PVCs, but he does not have apparent symptoms. I, therefore, do not recommend intervention for PVCs for the time being. If he continues to do well, we willsee him for followup in 1 year. Sincerely, MD ANKUR Greene MD MT: MANDIE Name: RADHA VILLA Account: [id number] : 1940 Service Date: 12/10/2014 Document: [id number] Ankur Smith MD - 12/10/2014 2:26 PM CDT HPI and Plan: See dictation Orders Placed This Encounter Procedures ??? EKG 12-lead complete w/read - Clinics (performed today) No orders of the defined types were placed in this encounter. Medications Discontinued During This Encounter Medication Reason ??? metoprolol (TOPROL-XL) 50 MG 24 hr tablet Stopped by Patient ??? PSEUDOEPHEDRINE HCL Stopped by Patient ??? warfarin (COUMADIN) 5 MG tablet Stopped by Patient Encounter Diagnosis Name Primary? Atrial flutter Yes CURRENT MEDICATIONS: Current Outpatient Prescriptions Medication Sig Dispense Refill ??? ACYCLOVIR 400 MG OR TABS 1 TABLET 3 TIMES DAILY-as need for Cold sores 30 6 ??? metoprolol (TOPROL-XL) 50 MG 24 hr tablet Take 50 mg by mouth 2 times daily ??? fenofibrate 160 MG tablet Take 160 mg by mouth daily. ??? PANTOPRAZOLE SODIUM PO Take 40 mg by mouth every morning (before breakfast). ??? NITROGLYCERIN SL Place 0.4 mg under the tongue. ??? lisinopril (PRINIVIL,ZESTRIL) 5 MG tablet Take 5 mg by mouth daily. ??? pravastatin (PRAVACHOL) 80 MG tablet Take 80 mg by mouth daily. ALLERGIES Allergies Allergen Reactions ??? No Known Allergies PAST MEDICAL HISTORY: Past Medical History Diagnosis Date ??? Coronary artery disease small branch stenosis ??? Arthritis ??? Hypertension ??? Malignant neoplasm eye cancer tx with radiation 10 years ago, monitoring every 2 months ??? Atrial flutter sp ablation 02/27/2013 ??? Sleep apnea ??? Melanoma right eye PAST SURGICAL HISTORY: Past Surgical History Procedure Laterality Date ??? Cardiac surgery ??? C cabg, artery-vein, four 1985 ??? Cholecystectomy ??? Hernia repair ??? Orthopedic surgery ??? Rotator cuff[ FAMILY HISTORY: Family History Problem Relation Age of Onset ??? Heart Father ??? Obesity Paternal Grandmother ??? Obesity Daughter ??? Obesity Son SOCIAL HISTORY: History Social History ??? Marital Status: Spouse Name: N/A Number of Children: N/A ??? Years of Education: N/A Social History Main Topics ??? Smoking status: Never Smoker ??? Smokeless tobacco: None ??? Alcohol Use: Yes ??? Drug Use: No ??? Sexual Activity: None Other Topics Concern ??? None Social History Narrative Review of Systems: Skin: Negative Eyes: Positive for eye cancer removed ENT: Negative Respiratory: Negative Cardiovascular: Negative Gastroenterology: Negative Genitourinary: Negative Musculoskeletal: Positive for arthritis;back pain Neurologic: Negative Psychiatric: Negative Heme/Lymph/Imm: Negative Endocrine: Positive for diabetes Physical Exam: Vitals: BP 124/84 Pulse 72 Ht 1.816 m (5' 11.5) Wt 142.429 kg (314 lb) BMI 43.19 kg/m2 Constitutional: cooperative, alert and oriented, well developed, well nourished, in no acute distress Skin: warm and dry to the touch, no apparent skin lesions or masses noted Head: normocephalic, no masses or lesions Eyes: wear eye glasses ENT: no pallor or cyanosis, dentition good Neck: carotid pulses are full and equal bilaterally, JVP normal, no carotid bruit, no thyromegaly Chest: normal breath sounds, clear to auscultation, normal A-P diameter, normal symmetry, normal respiratory excursion, no use of accessory muscles Cardiac: regular rhythm, normal S1/S2, no S3 or S4, apical impulse not displaced, no murmurs, gallops or rubs Abdomen: abdomen soft, non-tender, BS normoactive, no mass, no HSM, no bruits Vascular: pulses full and equal, no bruits auscultated Extremities and Back: no deformities, clubbing, cyanosis, erythema observed Neurological: affect appropriate, oriented to time, person and place CC No referring provider defined for this encounter. documented in this encounter Plan of Treatment Upcoming Encounters Date Type Specialty Care Team Description 06/26/2022 Ancillary Procedure Cardiology Seng Canchola MD [address] [place] [address] (Wo rk) 08/16/2022 Ancillary Procedure Cardiology Ankur Smith MD [address] [place] [address] (Wo rk) 08/16/2022 Office Visit Cardiology Ankur Smith MD [address] [place], [place] [address] (Wo rk) Scheduled Referrals Name Type Priority Associated Diagnoses Order S chedule Follow-Up with Referral Routine Atrial Flutter (H) Expecte d: Data Center Manager 12/10/19 16 (Approximate), Expires: 04/23/2016 documented as of this encounter Procedures Procedure Name Priority Date/Time Associated Diagnosis Comme nts EKG 12-LEAD Routine 12/10/2014 2:12 PM Atrial Flutter (H) Res ults for this COMPLETE W/READ - CDT procedure are in CLINICS the results section. documented in this encounter Results EKG 12-lead complete w/read - Clinics (performed today) (12/10/2014 2:12 PM CDT) Narrative This result has an attachment that is no t available. Ankur Smith MD ECG ORDERABLES documented in this encounter Visit Diagnoses Diagnosis Atrial flutter (H) - Primary Atrial flutter documented in this encounter Care Teams Supervisor [employer] Former Relationship Specialty Start Date End Date Nas Cardenas MD PCP - General Family Practice 02/01/12 04/12/17 documented as of this encounter
--- OUTSIDE RECORDS SUMMARY | 2022-06-22 08:59 | XMS_ITS | Encounter Summary ---
:1940 Author Organization [place] Address [address] [place] [address] Care Team Providers Name Role Phone Nas Cardenas MD Primary Care Provider Encounter Details Date Type Department Care Team Description 02/27/2013 Results Only [facility] Timothy Smith MD Hospital Results [address] [place] [id number] (Wo rk) Social History Tobacco Use Types [...] [address] [place] [id number] (Wo rk) 08/16/2022 Ancillary Procedure Cardiology Timothy Smith MD [address] [place] [id number] (Wo rk) 08/16/2022 Office Visit Cardiology Timothy Smith MD [address] [place] [id number] (Wo rk) documented as of this encounter Procedures Procedure Name Priority Date/Time Associated Diagnosis Comme nts H ABLATION ATRIAL 02/27/2013 2:26 PM Resu lts for this FLUTTER CDT procedure are i n the results section. documented in this encounter Results EP Ablation atrial flutter (02/27/2013 2:26 PM CDT) Anatomical Region Laterality Modality Other Specimen (Source) Anatomical Collection Method Collection Time Re ceived Time Location / / Volume Laterality 02/27/2013 2:26 PM CDT Narrative 03/07/2013 10:57 AM CDT RADHA FAROOQ ?? PROCEDURES PERFORMED: 1. ??Comprehensive EP study with left at rial recording through the coronary sinus. 2. ??Ablation of typical atrial flutter. ?? INDICATIONS FOR PROCEDURE: ??Mr. Daisy polanco s a 72-year-old white male with a history of coronary artery diseas e and previous CABG. ??He presented with persistent atrial flutter . ??The patient has been fully anticoagulated. ??After the risks and be nefits of the procedure were explained, the patient agreed for atrial flutter ablation for correction of the arrhythmia. ?? PROCEDURE AND RESULTS: ??After the writt en informed consent was obtained, the patient was transported to [facility] Lab 3 in the fasting state. ??The procedure was performed und er local anesthesia and sterile conditions. ??Intravenous Versed and fentanyl were used for conscious sedation. ??By using the Seldi nger technique, a 5 Amharic decapolar catheter was inserted through the left subclavian vein and placed into the coronary sinus. ??The Ann lo catheter was inserted through the right femoral vein and place d into the right atrium for mapping of the tricuspid annulus. ?? The patient was in persistent atrial flu tter at the baseline. ??The flutter cycle length was 272 millisecond s with variable AV conduction. ??The intracardiac recording showed activation patterns consistent with typical tricuspid isthmu s-dependent counterclockwise rotation atrial flutter. ??The ablation catheter was inserted through the right femoral vein and placed into t he tricuspid isthmus. ??The ablation catheter was from [facility] with 8 mm tip. ??The ablation was started at the output of 70 keane with a temperature of 66 degrees Celsius. ??The flutter was terminated on ablation #5. ??After that ablation, coronary sinus pacing showed c omplete tricuspid isthmus block. ??One more ablation was required to eliminate residual atrial electrogram over the tricuspid isthmus. ?? Comprehensive EP study was performed aft er flutter termination to assess the AV and VA conduction. ??The A -H was 214, H-V 55 milliseconds. ??AV Wenckebach cycle savannah th 470 milliseconds, AV node ERP 460 at BCL 600 milliseconds, atrial ERP 200 at BCL 600 milliseconds. ??VA Wenckebach cycle savannah th 370 milliseconds, VA ERP 270 at BCL 400 milliseconds. ??Ventricul ar ERP of 250 at BCL of 400 milliseconds. ??There was no evidence of accessory pathways or dual AV mack pathways. ??With single atrial and ventricular extrastimulation, there was no inducible SVT or VT. ?? At the end of the procedure, all cathete rs and sheaths were removed and local pressure was applied to the pu ncture site. ??There was no complication. ?? Procedure Note Timothy Smith MD - 03/07/2013 RADHA FAROOQ PROCEDURES PERFORMED: 1. Comprehensive EP study with left atri al recording through the coronary sinus. 2. Ablation of typical atrial flutter. INDICATIONS FOR PROCEDURE: Mr. Farooq is a 72-year-old white male with a history of coronary artery diseas e and previous CABG. He presented with persistent atrial flutter . The patient has been fully anticoagulated. After the risks and bene fits of the procedure were explained, the patient agreed for atrial flutter ablation for correction of the arrhythmia. PROCEDURE AND RESULTS: After the written informed consent was obtained, the patient was transported to CV Lab 3 in the fasting state. The procedure was performed under local anesthesia and sterile conditions. Intravenous Versed a nd fentanyl were used for conscious sedation. By using the Selding er technique, a 5 Amharic decapolar catheter was inserted through the left subclavian vein and placed into the coronary sinus. The Halo catheter was inserted through the right femoral vein and place d into the right atrium for mapping of the tricuspid annulus. The patient was in persistent atrial flu tter at the baseline. The flutter cycle length was 272 millisecond s with variable AV conduction. The intracardiac recording s howed activation patterns consistent with typical tricuspid isthmu s-dependent counterclockwise rotation atrial flutter. The ablation ca theter was inserted through the right femoral vein and placed into t he tricuspid isthmus. The ablation catheter was from [facility] with 8 mm tip. The ablation was started at the output of 70 keane with a temperature of 66 degrees Celsius. The flutter was terminated on a blation #5. After that ablation, coronary sinus pacing showed c omplete tricuspid isthmus block. One more ablation was required to eliminate residual atrial electrogram over the tricuspid isthmus. Comprehensive EP study was performed aft er flutter termination to assess the AV and VA conduction. The A-H was 214, H-V 55 milliseconds. AV Wenckebach cycle length 470 milliseconds, AV node ERP 460 at BCL 600 milliseconds, atrial ERP 200 at BCL 600 milliseconds. VA Wenckebach cycle length 370 milliseconds, VA ERP 270 at BCL 400 milliseconds. Ventricular ERP of 250 at BCL of 400 milliseconds. There was no evidence of a ccessory pathways or dual AV mack pathways. With single atrial and v entricular extrastimulation, there was no inducible SVT or VT. At the end of the procedure, all cathete rs and sheaths were removed and local pressure was applied to the pu ncture site. There was no complication. Timothy Smith MD CV ELECTROPHYSIOLOGY ORDERAB LES documented in this encounter Visit Diagnoses Not on filedocumented in this encounter Care Teams Survival Equipment Repairer Relationship Specialty Start Date End Date Nas Cardenas MD PCP - General Family Practice 02/01/12 04/12/17 documented as of this encounter
--- OUTSIDE RECORDS SUMMARY | 2022-06-22 08:59 | XMS_ITS | Encounter Summary ---
:1940 Author Organization [place] Address [address] [place] [address] Care Team Providers Name Role Phone Herminia Coleman MD Primary Care Provider Graham Licona MD Primary Care Provider [facility] Primary Care Provider [phone] Slava Hernandez-C Primary Care Provider Timothy Smith MD Unavailable Graham Licona MD Primary Care Provider Encounter Details Date Type Department Care Team Description 05/23/2013 Office Visit-[facility] Rafael Smith MD [place] [id number] [address] [place] [id number] [place] [phone] [phone] Social History Tobacco Use Types Packs/Day Years Used Date Never Smoker Alcohol Use Standard Drinks/Week Comments Yes 0 (1 standard drink = 0.6 oz pure alcoho l) Sex Assigned at Date Recorded Not on file documented as of this encounter Progress Notes Timothy Smith MD - 05/26/2013 12:59 PM CDT Progress Note Created by: Timothy Smith M.D. DATE: 05/23/2013 RADHA VILLA DATE OF : 1940 AGE: [age] years old Referring Physician: HERMINIA COLEMAN Referring Clinic: [facility] CURRENT DIAGNOSES 1. - Hyperlipidemia, 272.4 2. - Hypertension, 401.1 3. UT-Recent Unspecified, 410.91 4. - CAD, 414.00 5. - Atrial Flutter, 427.32 ALLERGIES NKDA MEDICATIONS (prior to changes made today) 1. Aspir-81 81 mg tablet,delayed release (DR/EC), 1 p.o. daily 2. fenofibrate 160 mg tablet, 1 p.o. daily 3. isosorbide mononitrate 30 mg tablet extended release 24 hr, 1 p.o. PRN as Directed 4. lisinopril5 mg tablet, 1 p.o. daily 5. metoprolol succinate 50 mg tablet extended release 24 hr, 1 p.o. twice daily 6. Nitrostat 0.4 mgtablet, sublingual, 1 p.o. PRN as Directed 7. pantoprazole 40 mg tablet,delayed release (DR/EC), 1 p.o. daily 8. pravastatin 80 mg tablet, 1 p.o. daily 9. pseudoephedrine HCl 60 mg tablet, 90 mg po daily prn 10. Ranexa 1,000 mg tablet extended release 12 hr, 1 p.o. twice daily CHIEF COMPLAINTS HISTORY OF PRESENT ILLNESS I had the pleasure of seeing Mr. Villa for follow-up of atrial flutter ablation and coronary artery disease. Since the success ablation of atrial flutter in January he has been doing well. He has not had any recurrent palpitation and denies dizziness. He does have frequent chest pain with exertion and typically the symptom would resolve after he stops his activities. The patient had coronary angiography in January of last year that showed no critical stenosis that would require stent or angioplasty. Apparently he had some small vessel disease that was not feasible for revascularization. On examination, the blood pressure was 110/62, body weight 312 pounds and heart rate 80 beats per minute. The eyes and ENT were unremarkable. The lungs had no crackles or wheezing. The cardiac rhythm was regular and the heart sounds were remote. There was no murmur. The abdominal examination showed noobesity. He has 1+ edema in the left leg and trace edema in the right leg. The EKG showed normal sinus rhythm. PAST HISTORY Past Medical Illnesses: hyperlipidemia, obesity, sleep apnea on CPAP, hypertension Past Cardiac Illnesses: coronary artery disease, sp CABG, atrial flutter sp ablation, S/P myocardial infarction Cardiac/Vasc Procedures-Invasive: radiofrequency ablation January 2013, cardiac cath (left) January 2013 Cardiology Procedures-NonInvasive: echocardiogram January 2012 Left Ventricular Ejection Fraction: EF<GT>55% by Echo -January 2013 EF<GT>55% by Echo -January 2013 REVIEW OF SYSTEMS GENERAL ekg done INTEGUMENTARY denies any change in hair or nails, rashes, or skin lesions. EYES wears eye glasses/contact lenses EARS, NOSE, THROAT, MOUTH epistaxis RESPIRATORY sleep apnea CARDIOVASCULAR palpitations, chest pain when walking up stairs ABDOMINAL denies ulcer disease, hematochezia or melena. [...] disorders. PHYSICAL EXAMINATION VITAL SIGNS: Blood Pressure: 110/62Sitting, Right arm, large cuff Pulse- 80.00/min. Weight- 312.20 lbs. Height- 71 BMI Measurement: 43 CONSTITUTIONAL cooperative, alert and oriented,well developed, well [...] time, person and place. MEDICATIONS UPDATED/STARTED TODAY: Aspir-81 81 mg tablet,delayed release (DR/EC), 1 p.o. daily, #90 (Ninety) metoprolol succinate 50 mg tablet extended release 24 hr, 1 p.o. twice daily, #0 (Zero) pseudoephedrine HCl 60 mg tablet, 90 mg po daily prn, #0 (Zero) Ranexa 1,000 mg tablet extended release 12 hr, 1 p.o. twice daily, #180 (One [place]y) MEDICATIONS REFILLED/STOPPED TODAY: metoprolol succinate 50 mg tablet extended release 24 hr 1 p.o. daily #0 (Zero) Dosage Increased, pseudoephedrine HCl 60 mg tablet 90 mg po daily #0 (Zero) Dosage Decreased and warfarin 5 mg tablet Take as Directed #0 (Zero) Physician Order IMPRESSIONS/PLAN ASSESSMENT AND RECOMMENDATION: Mr. Villa is maintaining sinus rhythm. He has been more than two months after the flutter ablation. So far we have not had any atrial fibrillation. I therefore have askedhim to switched warfarin to aspirin 81 mg once a day. For his angina he is already on nitrate and beta-best. I started him on Ranexa 1,000 mg p.o. b.i.d. He will start with samples first and will fill the prescription if he does well on the samples. It is my pleasure to participate in the care of this patient. If you have any questions, please do not hesitate to contact me. TODAYS ORDERS 1. Return Visit 1 year 2. Michelle MATA PA-C 3 months 3. 12 Lead EKG 3 months 4. 12 Lead EKG 1 year Timothy Smith M.D. documented in this encounter Plan of Treatment Upcoming Encounters Date Type Specialty Care Team Description 06/26/2022 Ancillary Procedure Cardiology Seng Canchola MD [address] [place] [id number] (Wo rk) 08/16/2022 Ancillary Procedure Cardiology Timothy Smith MD [address] [place] [id number] (Wo rk) 08/16/2022 Office Visit Cardiology Timothy Smith MD [address] [place] [id number] (Fiorella rk) documented as of this encounter Visit Diagnoses Not on filedocumented in this encounter Care Teams Crystal Finisher Relationship Specialty Start Date End Date Herminia Coleman, PCP - General Family Practice 02/01/1203/31 Graham Licona MD PCP - General Family Practice 04/13/17 01/15/18 [facility] [address] [place] [address] Vinny Reinoso PCP - General 01/16/18 07/01/18 [facility] [address] [place] [address] Slava Hernandez, PCP - General Physician Senior Business Consultant 07/02/1806/[address] [facility] [id number] [place] [id number] Graham Licona MD PCP - General Family Medicine 06/30/21 [facility] [address] [place] [address] Timothy Smith MD Assigned Heart and 07/23/20 [address] Vascular Provider [address] [place] [id number] documented as of this encounter
--- OUTSIDE RECORDS SUMMARY | 2022-06-22 08:59 | XMS_ITS | Encounter Summary ---
:1940 Author Organization [place] Address [address] [place] [address] Care Team Providers Name Role Phone Nas Cardenas MD Primary Care Provider Reason for Visit Reason Onset Date Comments Previsit 12/09/2014 [facility] 12/09/2014 Encounter Details Date Type Department Care Team Description 12/09/2014 PRE VISIT [facility] Zarina Smith MD Previsit; [facility] [place] [address] [facility] [address] [facility] [address] [place] [address] [place] [phone] Social History Tobacco Use Types Packs/Day Years Used Date Never Smoker Alcohol Use Standard Drinks/Week Comments Yes 0 (1 standard drink = 0.6 oz pure alcoho l) Sex Assigned at Date Recorded Not on file documented as of this encounter Plan of Treatment Upcoming Encounters Date Type Specialty Care Team Description 06/26/2022 Ancillary Procedure Cardiology Seng Canchola MD [address] [place] [id number] (Wo rk) 08/16/2022 Ancillary Procedure Cardiology Timothy Smith MD [address] [place] [phone] (Wo rk) 08/16/2022 Office Visit Cardiology Timothy Smith MD [address] [place] [id number] (Wo rk) documented as of this encounter Visit Diagnoses Not on filedocumented in this encounter Care Teams Client Support Manager Relationship Specialty Start Date End Date Nas Cardenas MD PCP - General Family Practice 02/01/12 04/12/17 documented as of this encounter
--- OUTSIDE RECORDS SUMMARY | 2022-06-22 08:59 | XMS_ITS | Encounter Summary ---
:1940 Author Organization [place] Address [address] [place] [address] Care Team Providers Name Role Phone Herminia Coleman MD Primary Care Provider Graham Licona MD Primary Care Provider [facility] Primary Care Provider [phone] Slava Hernandez PA-C Primary Care Provider Timothy Smith MD Unavailable Graham Licona MD Primary Care Provider Encounter Details Date Type Department Care Team Description 09/12/2013 Office Visit-[facility] Patt Torres PA-C [address] [facility] [address] [id number] [facility] [address] [place] [address] [place] [address] [phone] Social History Tobacco Use Types Packs/Day Years Used Date Never Smoker Alcohol Use Standard Drinks/Week Comments Yes 0 (1 standard drink = 0.6 oz pure alcoho l) Sex Assigned at Date Recorded Not on file documented as of this encounter Progress Notes Tammy Montenegro PA-C - 09/19/2013 3:42 PM CST Progress Note Created by: Demetra Boyle DATE: 09/12/2013 RADHA VILLA DATE OF : 1940 AGE: [age] years old Referring Physician: HERMINIA COLEMAN Referring Clinic: [facility] CURRENT DIAGNOSES 1. - Hyperlipidemia, 272.4 2. - Hypertension, 401.1 3. NJ-Recent Unspecified, 410.91 4. - CAD, 414.00 5. - Atrial Flutter, 427.32 ALLERGIES NKDA MEDICATIONS (prior to changes made today) 1. Aspir-81 81 mg tablet,delayed release (DR/EC), 1 p.o. daily 2. biotin 5 mg capsule, 1 p.o. twice daily 3. fenofibrate 160 mg tablet, 1 p.o. daily 4. glimepiride 2 mg tablet, 1 p.o. twice daily 5. loratadine 10 mg tablet, 1 p.o. daily 6. losartan 25 mg tablet, 1 p.o. daily 7. metformin 500 mg tablet, 2 p.o. daily 8. metoprolol succinate 50 mg tablet extended release 24 hr, 1 p.o. twice daily 9. naproxen 500 mg tablet, 1 p.o. PRN as Directed 10. Nitrostat 0.4 mg tablet, sublingual, 1 p.o. PRN as Directed 11. pantoprazole 40 mg tablet,delayed release (DR/EC), 1 p.o. daily 12. pravastatin 80 mg tablet, 1 p.o. daily 13. tamsulosin 0.4 mg capsule,extended release 24hr, 1 p.o. daily CHIEF COMPLAINTS Followup of atrial flutter, CAD and angina HISTORY OF PRESENT ILLNESS I had the pleasure of meeting Mr. Villa today when he came for followup of his coronary disease and chest discomfort. As you know, he is a 72-year-old white male. He has a history of four-vessel bypasssurgery in 1985 and January of 2012. He underwent coronary angiography, which showed diffuse disease, but no need for mechanical intervention. He has a history of atrial flutter, status-post ablation in January of 2013. He saw Dr. Smith, his primary supervisor cereal, in May, at which time he was complaining of chest discomfort. At that time he was noted to already be on isosorbide, as well as beta-blockade. Dr. Smith recommended Ranexa 1,000 mg twice daily. He also discontinued his warfarin in favor of babyaspirin. He called our office on 09/01/2013 complaining of a presyncopal event that had happened after a largemeal on . He was asked to see me in followup. Mr. Villa tells me that he did not think the Ranexa helped his symptoms at all. He actually is not on isosorbide, stating that he had significant headaches with this in the past. He does remain on ARB and beta-best therapy, however. He denies any worsening of his mild chronic angina. He notes this mostly when he is walking outside or walking in a big store, such as [employer]. He does workout at [employer] three times weekly and states he has not had to stop at all or take nitroglycerin when he does the recumbent bike. He denies any problems with edema, orthopnea, or PND. He denies palpitations or ryan syncope. He tells me that the spell he had on 08/29/2013 was after a very heavy pasta dish. He sat down on the couch and suddenly felt his heart pounding with a wave going over him. He did not check his blood pressure or blood sugar during this time. This was very brief. It did not cause him to pass out, it has not recurred. He has never had anything like this before. He denied any problems with chest pain during or following. He denies any bleeding issues, fevers, or chills. Overall, he really feels as though he is doing pretty well. PAST HISTORY Past Medical Illnesses: hyperlipidemia, obesity, sleep apnea on CPAP, hypertension Past Cardiac Illnesses: coronary artery disease, sp CABG, atrial flutter sp ablation, S/P myocardial infarction Cardiac/Vasc Procedures-Invasive: radiofrequency ablation January 2013, cardiac cath (left) January 2013 Cardiology Procedures-NonInvasive: echocardiogram January 2012 Left Ventricular Ejection Fraction: EF<GT>55% by Echo -January 2013 EF<GT>55% by Echo -January 2013 FAMILY HISTORY: Father - Age 80, ; Mother - Age 80, ; CARDIAC RISK FACTORS SOCIAL HISTORY Alcohol Use - does not use alcohol; Smoking - never smoked; Diet - regular diet; Exercise - no regular exercise; Seat Belt Use - always; Occupation - retired; Residence - lives in [place] year round; REVIEW OF SYSTEMS GENERAL See HPI INTEGUMENTARY denies any change in hair or nails, rashes, or skin lesions. EYES wears eye glasses/contact lenses EARS, NOSE, THROAT, MOUTH epistaxis RESPIRATORY sleep apnea CARDIOVASCULAR See HPI ABDOMINAL denies ulcer disease, hematochezia or melena. [...] disorders. PHYSICAL EXAMINATION VITAL SIGNS: Blood Pressure: 130/70 Sitting, Right arm, large cuff Pulse- 80.00/min. Weight- 314.20 lbs. Height- 71 BMI Measurement: 43 CONSTITUTIONAL [...] oriented to time, person and place. MEDICATIONS STARTED TODAY: losartan 25 mg tablet, 1 p.o. twice daily, #180 ([place]) MEDICATIONS STOPPED TODAY: losartan 25 mg tablet, 1 p.o. daily IMPRESSIONS/PLAN 1. Coronary disease and angina. He was unable to tolerate isosorbide due to headaches. Ranexa did not seem to improve his symptoms, per his report. His blood pressure is a bit high, and I think that wecould certainly increase his losartan, aiming for a blood pressure closer to the 120s to see if thatimproves his chest discomfort at all. At this time, therefore, I will increase losartan to 25 mg twice daily, and a prescription was Escripted for him. I did not increase his beta-best secondary to his EKG. I over read this today showing sinus rhythm with a long first-degree A-V block (240 milliseconds). Other options certainly include starting amlodipine or re-trialing isosorbide with the addition of Tylenol, as needed. I have asked him to contact me should he run into any issues, but currently he will plan to keep hisfollow-up appointment in May of 2014. 2. Presyncopal event. He thinks that this was more related to a change in his blood sugar after a heavy pasta meal. He did not check his blood pressure or blood sugar. I explained to him our limitations given that this has only happened once. At this time, I have recommended that he continue to followthis. If he were to have a significant episode, I would want him to try if he was safe to check his blood pressure or blood sugar and contact us. Certainly, we could determine if an event monitor was needed to ensure that his heart rate and rhythm do not change dramatically, causing these symptoms. As above, he is due to see Dr. Smith in May. He will contact us in the interim can we be of any assistance. TODAYS ORDERS 1. 12 Lead EKG Today 2. See Dr. Smith in 05/2014 as previously ordered Tammy Montenegro, Kasi. documented in this encounter Plan of Treatment Upcoming Encounters Date Type Specialty Care Team Description 06/26/2022 Ancillary Procedure Cardiology Seng Canchola MD [address] [place] [address] [id number] (Wo rk) 08/16/2022 Ancillary Procedure Cardiology Timothy Smith MD [address] [place] [id number] (Wo rk) 08/16/2022 Office Visit Cardiology Timothy Smith MD [address] [place] [id number] (Wo rk) documented as of this encounter Visit Diagnoses Not on filedocumented in this encounter Care Teams Vehicle And Equipment Cleaner Relationship Specialty Start Date End Date Niebeling, Herminia A, PCP - General Family Practice 02/01/1203/31 Graham Licona MD PCP - General Family Practice 04/13/17 01/15/18 [facility] [address] [place] [address] Vinny Reinoso PCP - General 01/16/18 07/01/[address] [place] [id number] [place] [phone] Slava Hernandez, PCP - General Physician Media Strategist 07/02/1806/02 JOSÉ MIGUELC [facility] [id number] [place] [id number] Graham Licona MD PCP - General Family Medicine 06/30/21 [facility] [address] [place] [address] Timothy Smith MD Assigned Heart and 07/23/20 [address] Vascular Provider [address] [place] [id number] documented as of this encounter
--- OUTSIDE RECORDS SUMMARY | 2022-06-22 08:59 | XMS_ITS | Encounter Summary ---
:1940 Author Organization [facility] Address [address] [place] [address] Care Team Providers Name Role Phone Nas Cardenas MD Primary Care Provider Encounter Details Date Type Department Care Team Description 02/27/2013 Historic Results [facility] [place] [facility] Heart Unknown, [facility] [place] [address] [facility] [address] [place] [phone] Social History Tobacco [...] Seng Canchola MD [address] [facility] [address] [place] [id number] (Wo rk) 08/16/2022 Ancillary Procedure Cardiology Timothy Smith MD [address] [place] [id number] (Wo rk) 08/16/2022 Office Visit Cardiology Timothy Smith MD [address] [place] [id number] (Wo rk) documented as of this encounter [...] on filedocumented in this encounter Care Teams Manager Action Relationship Specialty Start Date End Date Nas Cardenas MD PCP - General Family Practice 02/01/12 04/12/17 documented as of this encounter
--- OUTSIDE RECORDS SUMMARY | 2022-06-22 08:59 | XMS_ITS | Encounter Summary ---
:1940 Author Organization [facility] Address [address] [place] [address] Care Team Providers Name Role Phone Nas Cardenas MD Primary Care Provider Encounter Details Date Type Department Care Team Description 12/13/2012 Historic Results [facility] Heart Unknown, Doct or, [place] [id number] [facility] [address] [place] [phone] Social History Tobacco Use Types Packs/Day Years Used Date Never Smoker Alcohol Use Standard Drinks/Week Comments Yes 0 (1 standard drink = 0.6 oz pure alcoho l) Sex Assigned at Date Recorded Not on file documented as of this encounter Plan of Treatment Upcoming Encounters Date Type Specialty Care Team Description 06/26/2022 Ancillary Procedure Cardiology Seng Canchola MD [address] [facility] [address] [place] [id number] (Wo rk) 08/16/2022 Ancillary Procedure Cardiology Timothy Smith MD [address] [place] [id number] (Wo rk) 08/16/2022 Office Visit Cardiology Timothy Smith MD [address] [place] [id number] (Wo rk) documented as of this encounter Procedures Procedure Name Priority Date/Time Associated Comments Diagnosis [facility] HISTORICAL Routine 12/13/2012 12:00 AM Resu lts for this RESULTS CDT procedure are i n the results section. documented in this encounter Results [facility] Historical Results (12/13/2012 12:00 AM CDT) P athologist Signature Sodium 139 136 - 145 [facility] mmol/L HISTORICAL RESULTS Potassium 4.8 3.5 - 5.1 [facility] mmol/L HISTORICAL RESULTS Chloride 103 98 - 107 [facility] mmol/L HISTORICAL RESULTS Carbon Dioxide 21 23 - 29 [facility] mmol/L HISTORICAL RESULTS Anion Gap 15 [facility] HISTORICAL RESULTS Glucose Fasting 164 70 - 105 [facility] mg/dl HISTORICAL RESULTS Urea Nitrogen 21 7 - 18 [facility] mg/dl HISTORICAL RESULTS Creatinine 0.85 0.7 - 1.3 [facility] mg/dl HISTORICAL RESULTS eGFR Calculated >60 >60 mL/min [facility] (Non Black HISTORICAL Reference) RESULTS eGFR Calculated >60 >60 mL/min [facility] (Black HISTORICAL Reference) RESULTS Calcium 10.2 8.5 - 10.5 [facility] mg/dl HISTORICAL RESULTS Specimen (Source) Anatomical Location Collection Method / Collectio n Time Received Time / Laterality Volume 12/13/2012 12/13/2012 Doctor Unknown MD LABORATORY Performing Organization Address City/State/ZIP Code Phon e Number [facility] HISTORICAL RESULTS documented in this encounter Visit Diagnoses Not on filedocumented in this encounter Care Teams Assisted Living Nursing Director Relationship Specialty Start Date End Date Nas Cardenas MD PCP - General Family Practice 02/01/12 04/12/17 documented as of this encounter
--- OUTSIDE RECORDS SUMMARY | 2022-06-22 08:59 | XMS_ITS | Encounter Summary ---
:1940 Author Organization [facility] Address [address] [place] [address] Care Team Providers Name Role Phone Nas Cardenas MD Primary Care Provider Reason for Referral - Closed Specialty Diagnoses / Procedures Referred By Contact Refer red To Contact Diagnoses Typical atrial flutter (H) Ankur Smith MD [address] [place] [id number] Referral ID Status Reason Start Date Expiration Date Visits Requ ested Visits Authorized [id number] Closed 12/19/2017 12/19/2018 1 1 Reason for Visit Reason Comments Atrial Fib yearly f/u - Closed Specialty Diagnoses / Procedures Referred By Contact Refer red To Contact Ankur Smith MD [address] [place] [id number] Referral ID Status Reason Start Date Expiration Date Visits Requ ested Visits Authorized [id number] Closed 12/10/2015 06/07/2016 1 1 Encounter Details Date Type Department Care Team Description 12/20/2015 Office Visit [facility] Ankur Smith MD Benign essential hypertension (Primary D x); Heart Clinic [place] [address] Typical atrial flutter (H) [address] [facility] [address] [facility] [address] [place] [address] [place] [address] [phone] Social History Tobacco Use Types Packs/Day Years Used Date Never Smoker Alcohol Use Standard Drinks/Week Comments Yes 0 (1 standard drink = 0.6 oz pure alcoho l) Sex Assigned at Date Recorded Not on file documented as of this encounter Last Filed Vital Signs Vital Sign Reading Time Taken Comments Blood Pressure 134/82 12/20/2015 9:57 AM CDT Pulse 81 12/20/2015 9:57 AM CDT Temperature - - Respiratory Rate - - Oxygen Saturation - - Inhaled Oxygen Concentration - - Weight 138.3 kg (305 lb) 12/20/2015 9:57 AM CDT Height 181.6 cm (5' 11.5) 12/20/2015 9:57 AM CDT Body Mass Index 41.95 12/20/2015 9:57 AM CDT documented in this encounter Progress Notes Ankur Smith MD - 12/20/2015 10:21 AM CDT December 20, 2015 [place] [address] RE: Radha Farooq : [address] Cardenas: I saw Mr. Farooq is that for followup of coronary artery disease, atrial flutter, status post ablation. Since the last clinic visit about a year ago, he has been doing reasonably well without palpitation or shortness of breath. He does use nitroglycerin for occasional angina. He is still doing some part-time work without difficulty. The patient on the other hand does not do much physical activities for exercise purpose. PHYSICAL EXAMINATION: VITAL SIGNS: On examination, blood pressure was 134/82, heart rate 81 beats per minute, body weight down to 305 pounds. HEENT: The eyes and ENT were unremarkable. LUNGS: Clear. CARDIAC: The cardiac rhythm was regular and the heart sounds were normal. ABDOMEN: Showed severe obesity. EXTREMITIES: There was no pedal edema. EKG showed sinus rhythm with first-degree AV block with a relatively long WI interval. ASSESSMENT AND RECOMMENDATIONS: Mr. Farooq is doing reasonably well. His angina is occasional and infrequent. I agree for him to use nitroglycerin. However, if the angina frequency increases, we may have to repeat coronary angiography. His last coronary angiography was in 2011. He is known to have normal LV function. Based on his very long WI interval, I have asked him to change Toprol XL from 50 mg p.o. b.i.d. to 50 mg p.o. daily. On the other hand, the dose of lisinopril is increased from 5 to 20 mg once a day. He will return for Cardiology follow up in 1 year. However, if his angina frequency changes or severe fatigue becomes worse, he may contact our office for earlier visit. Sincerely, MD ANKUR Greene MD MT: [id number] Name: RADHA FAROOQ Account: [id number] : 1940 Service Date: 12/20/2015 Document: [id number] Ankur Smith MD - 12/20/2015 10:15 AM CDT HPI and Plan: See dictation Orders Placed This Encounter Procedures ??? Follow-Up with Cardiac Advanced Practice Provider ??? Follow-Up with Covering Machine Tender ??? EKG 12-lead complete w/read - Clinics (performed today) ??? EKG 12-lead complete w/read (Future)- to be scheduled ??? EKG 12-lead complete w/read (Future)- to be scheduled Orders Placed This Encounter Medications ??? celecoxib (CELEBREX) 200 MG capsule Sig: Take 200 mg by mouth 2 times daily ??? aspirin 81 MG tablet Sig: Take 81 mg by mouth daily ??? metoprolol (TOPROL XL) 50 MG 24 hr tablet Sig: Take 1 tablet (50 mg) by mouth daily Dispense: 90 tablet Refill: 5 ??? lisinopril (PRINIVIL,ZESTRIL) 20 MG tablet Sig: Take 1 tablet (20 mg) by mouth daily Dispense: 90 tablet Refill: 5 Medications Discontinued During This Encounter Medication Reason ??? metoprolol (TOPROL-XL) 50 MG 24 hr tablet ??? lisinopril (PRINIVIL,ZESTRIL) 5 MG tablet Encounter Diagnoses Name Primary? Benign essential hypertension Yes ??? Typical atrial flutter (HCC) CURRENT MEDICATIONS: Current Outpatient Prescriptions Medication Sig Dispense Refill ??? celecoxib (CELEBREX) 200 MG capsule Take 200 mg by mouth 2 times daily ??? aspirin 81 MG tablet Take 81 mg by mouth daily ??? metoprolol (TOPROL XL) 50 MG 24 hr tablet Take 1 tablet (50 mg) by mouth daily 90 tablet 5 ??? lisinopril (PRINIVIL,ZESTRIL) 20 MG tablet Take 1 tablet (20 mg) by mouth daily 90 tablet 5 ??? fenofibrate 160 MG tablet Take 160 mg by mouth daily. ??? PANTOPRAZOLE SODIUM PO Take 40 mg by mouth every morning (before breakfast). ??? NITROGLYCERIN SL Place 0.4 mg under the tongue. ??? pravastatin (PRAVACHOL) 80 MG tablet Take 80 mg by mouth daily. ??? ACYCLOVIR 400 MG OR TABS 1 TABLET 3 TIMES DAILY-as need for Cold sores 30 6 ALLERGIES Allergies Allergen Reactions ??? No Known Allergies PAST MEDICAL HISTORY: Past Medical History Diagnosis Date ??? Coronary artery disease sp CABG ??? Arthritis ??? Hypertension ??? Malignant neoplasm (HCC) eye cancer tx with radiation 10 years ago, monitoring every 2 months ??? Atrial flutter (HCC) sp ablation 02/27/2013 ??? Sleep apnea ??? Melanoma (HCC) right eye ??? PVC (premature ventricular contraction) PAST SURGICAL HISTORY: Past Surgical History Procedure [...] Sexual Activity: None Other Topics Concern ??? Caffeine Concern Yes 2 cups coffe ??? Sleep Concern No ??? Stress Concern No ??? Special Diet No ??? Exercise No Social History Narrative Review of Systems: Skin: Positive for nail changes spilting nails Eyes: Positive for glasses eye cancer removed ENT: Negative Respiratory: Negative Cardiovascular: Negative Gastroenterology: Negative Genitourinary: Negative Musculoskeletal: Positive for arthritis Neurologic: Negative Psychiatric: Negative Heme/Lymph/Imm: Negative Endocrine: Positive for diabetes Physical Exam: Vitals: BP 134/82 mmHg Pulse 81 Ht 1.816 m (5' 11.5) Wt 138.347 kg (305 lb) BMI 41.95 kg/m2 Constitutional: cooperative, alert and oriented, well [...] oriented to time, person and place CC Ankur Smith MD [facility] [address] [place] [id number] documented in this encounter Plan of Treatment Upcoming Encounters Date Type Specialty Care Team Description 06/26/2022 Ancillary Procedure Cardiology Seng Canchola MD [address] [place] [address] [place] [id number] (Wo rk) 08/16/2022 Ancillary Procedure Cardiology Ankur Smith MD [address] [place] [address] (Wo rk) 08/16/2022 Office Visit Cardiology Ankur Smith MD [address] [place] [phone] (Wo rk) Scheduled Referrals Name Type Priority Associated Diagnoses Order S chedule Follow-Up with Referral Routine Typical atrial Expected: Covering Machine Tender flutter (H) 12/20/19 18 (Approximate), Expires: 05/03/2018 documented as of this encounter Procedures Procedure Name Priority Date/Time Associated Diagnosis Comme nts EKG 12-LEAD COMPLETE Routine 12/20/2015 Results for this W/READ - CLINICS procedure a re in the results section . documented in this encounter Results EKG 12-lead complete w/read - Clinics (performed today) (12/20/2015) Narrative This result has an attachment that is no t available. Ankur Smith MD ECG ORDERABLES documented in this encounter Visit Diagnoses Diagnosis Benign essential hypertension - Primary Essential hypertension, benign Typical atrial flutter (H) Atrial flutter documented in this encounter Care Teams Pantomimist Relationship Specialty Start Date End Date Nas Cardenas MD PCP - General Family Practice 02/01/12 04/12/17 documented as of this encounter
--- NOTE | 2022-06-22 09:00 | CRLHL7_ITS ---
For Patients: As a result of the Century Cures Act, medical imaging exams and procedure reports are released immediately into your electronic medical record. You may view this report before your referring provider. If you have questions, please contact your health care provider. Indication: ANOSMIA Technique: Performed without IV contrast Comparison: None available Findings: Frontal sinuses: Clear. Ethmoid sinuses: Clear. Maxillary sinuses: Mild mucosal thickening inferior right maxillary sinus adjacent to a periapical/dentigerous cyst measuring 0.9 x 1.3 cm. Left maxillary sinus is clear. The maxillary sinus drainage pathways are patent on both sides. Sphenoid sinuses: Clear, including both sphenoethmoidal recesses. Nasal Cavity: Mild rightward curvature of the anterior nasal septum and mild leftward curvature of the posterior nasal septum. Left posterior nasal septal spur. Paradoxical turn of the right middle turbinates No TMJ abnormalities identified. The visualized portions of the orbits, intracranial contents and upper soft tissue neck are grossly negative. Impression: 1. Mild right maxillary sinus disease adjacent to a right periapical cyst, possibly related to periodontal disease. 2. S shaped curvature of the nasal septum with left posterior nasal septal spur. Please note that all CT scans at this facility use dose modulation, iterative reconstruction, and/or weight-based dosing when appropriate to reduce radiation dose to as low as reasonably achievable. Dictated by Bear Reeder MD @ 06/22/2022 11:09:45 AM (Electronically Signed)
--- OUTSIDE RECORDS SUMMARY | 2022-06-22 09:00 | XMS_ITS | Encounter Summary ---
:1940 Author Organization [place] Address [facility] [place] [address] Care Team Providers Name Role Phone Unavailable Primary Care Provider Unavailable Reason for Visit Reason Comments RECHECK having radiation tx for eye ca.-needing lab work Encounter Details Date Type Department Care Team Description 08/31/2004 Office Visit [facility] Kannan Flores MD [facility] XXX RESIGNED XXX ENCOUNTER--DISREGARD [address] (Primary Dx) [facility] [address] [place] [phone] (Wo rk) Social History Tobacco Use Types Packs/Day Years Used Date Never Smoker Alcohol Use Standard Drinks/Week Comments Yes 0 (1 standard drink = 0.6 oz pure alcoho l) Sex Assigned at Date Recorded Not on file documented as of this encounter Last Filed Vital Signs Vital Sign Reading Time Taken Comments Blood Pressure 128/90 08/31/2004 9:55 AM OPERATOR SPECIALIST COMMUNICATIONS Pulse 62 08/31/2004 9:55 AM OPERATOR SPECIALIST COMMUNICATIONS Temperature - - Respiratory Rate - - Oxygen Saturation - - Inhaled Oxygen Concentration - - Weight 139.3 kg (307 lb) 08/31/2004 9:55 AM OPERATOR SPECIALIST COMMUNICATIONS Height - - Body Mass Index - - documented in this encounter Progress Notes Kannan Flores - 01/15/2005 11:20 AM CDT err documented in this encounter Nursing Notes 08/31/2004 9:30 AM CST >> ELISABET VALLECILLO 08/31/2004 9:56 am Haris Villa presents for lab work/consult-having radiation tx for eye ca. Initial BP 128/90 Pulse 62 Wt 307 lbs (139.3kg). BP completed using cuff size: large. documented in this encounter Plan of Treatment Upcoming Encounters Date Type Specialty Care Team Description 06/26/2022 Ancillary Procedure Cardiology Seng Canchola MD [address] [place] [address] [place] [id number] (Wo rk) 08/16/2022 Ancillary Procedure Cardiology Timothy Smith MD [address] [place] [id number] (Wo rk) 08/16/2022 Office Visit Cardiology Timothy Smith MD [address] [place] [id number] (Wo rk) documented as of this encounter Visit Diagnoses Diagnosis ERRONEOUS ENCOUNTER--DISREGARD - Primary documented in this encounter
--- OUTSIDE RECORDS SUMMARY | 2022-06-22 09:00 | XMS_ITS | Encounter Summary ---
:1940 Author Organization [facility] Address [address] [place] [address] Care Team Providers Name Role Phone Nas Cardenas MD Primary Care Provider Encounter Details Date Type Department Care Team Description 02/02/2012 Historic Results [facility] Unknown, [facility] [place] [address] [facility] [address] [place] [id number] Social History [...] MD [address] [place] [address] [place] [id number] (Wo rk) 08/16/2022 Ancillary Procedure Cardiology Timothy Smith MD [address] [place] [id number] (Wo rk) 08/16/2022 Office Visit Cardiology Timothy Smith MD [address] [place] [id number] (Wo rk) documented as of this encounter Procedures Procedure Name Priority Date/Time Associated Diagnosis Comme nts CARDIAC CATH - HIM SCAN 02/02/2012 12:00 AM CDT - ARCHIVE documented in this encounter Results CARDIAC CATH - HIM SCAN - ARCHIVE (02/02/2012 12:00 AM CDT) Specimen (Source) Anatomical Location Collection Method / Collectio n Time Received Time / Laterality Volume 02/02/2012 Narrative This result has an attachment that is no t available. Provider Scan CV ELECTROPHYSIOLOGY ORDERAB LES documented in this encounter Visit Diagnoses Not on filedocumented in this encounter Care Teams Manager Zone Relationship Specialty Start Date End Date Nas Cardenas MD PCP - General Family Practice 02/01/12 04/12/17 documented as of this encounter
--- OUTSIDE RECORDS SUMMARY | 2022-06-22 09:00 | XMS_ITS | Encounter Summary ---
:1940 Author Organization [facility] Address [address] [place] [address] Care Team Providers Name Role Phone Unavailable Primary Care Provider Unavailable Reason for Visit Reason Comments SIGNAL TECHNICIAN - INTRODUCTION [facility] SENIOR MEMBER Encounter Details Date Type Department Care Team Description 11/12/2003 Telephone [place] PHYSICIAN Stephon Stone SIGNAL TECHNICIAN - ASSOCIATES - CARE PHYSICIAN INTRODUCTI ON ([facility] SENIOR MEMBER) [address] [place] [address] [place] [id number] [phone] Social History Tobacco Use Types Packs/Day Years Used Date Never Assessed Sex Assigned at Date Recorded Not on file documented as of this encounter Miscellaneous Notes Telephone Encounter - 11/12/2003 11:59 PM SIGNAL ENGINEER >> AMANDA STONE Wed Dec 09, 2003 11:27 AM Called member. Takes Zocor and no OTC medications, triple bypass surgery 17 years ago and no problems since. Lives independent in his own home with his , non smoker, drives, and ind ependent with meal prep and cleaning. Lower level, stairs, for laundry. Falls Prevention explained , member declined at present time. Member does not have an Advance Care Directive and requests Q &A brochure and workbook be mailed to him - completed today. My name and contact information is included in the cover letter mailed with the Advance Care Directives information, member was encour aged to call with any questions or concerns. Amanda Stone RN Case Manager FPA >> AMANDA STONE [facility] Nov 12, 2003 5:03 PM >> CALL RECEIVED. Contact: Called client as a new member, and as follow up to his [facility] score of 0.239. No answer, did not leave a message, will require a return call at a later time. Amanda Stone RN Case Ryann MARTINEZ documented in this encounter Plan of Treatment Upcoming Encounters Date Type Specialty Care Team Description 06/26/2022 Ancillary Procedure Cardiology Seng Canchola MD [address] [place] [place] [id number] (Wo rk) 08/16/2022 Ancillary Procedure Cardiology Timothy Smith MD [address] [place] [id number] (Wo rk) 08/16/2022 Office Visit Cardiology Timothy Smith MD [address] [place] [phone] (Wo rk) documented as of this encounter Visit Diagnoses Not on filedocumented in this encounter
--- OUTSIDE RECORDS SUMMARY | 2022-06-22 09:00 | XMS_ITS | Encounter Summary ---
:1940 Author Organization [facility] Address [facility] [facility] [place] [address] Care Team Providers Name Role Phone Unavailable Primary Care Provider Unavailable Encounter Details Date Type Department Care Team Description 10/13/2004 Operative Report Lesvia Serrato MD ([employer]) [facility] NCOLOGY [address] [facility] [place] [phone] (Wo rk) Social History Tobacco Use Types Packs/Day Years Used Date Never Smoker Alcohol Use Standard Drinks/Week Comments Yes 0 (1 standard drink = 0.6 oz pure alcoho l) Sex Assigned at Date Recorded Not on file documented as of this encounter Miscellaneous Notes Op Note - Lesvia Serrato - 10/15/2004 12:00 AM CONCRETE PUDDLER 1st ASS'T: 2nd ASS'T: PRE-OPERATIVE DIAGNOSIS: POST-OPERATIVE DIAGNOSIS: 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 Mr. Radha Villa is a [id number] with a diagnosis of right eye choroidal melanoma. The patient has had identification of this right eye lesion with basal measurements of 13 X 12 mm with an apical height of 3 mm. Based on this a 16 mm notched eye plaque has been recommended. This was discussed and reviewed with the patient including alternative options of treatment. The patient elected to proceed with radioactive I125 plaque implant. The patient was brought to the OR. Dr. Gonzalez had accomplished nerve block procedure and anesthesia of the right eye. The eye lesion was localized by Dr. Gonzalez. I delivered the 16 mm plaque. This contained 12 radioactive I125 seeds with an activity of 42.6 millicuries. The plaque was surgically implanted at 7:55 a.m. on . 10/13/04. This was sutured into place by Dr. Gonzalez. There was good localization. Subsequently the patient was brought to the Recovery Room in stable condition. He was then brought to Radiation Therapy where I reviewed and discussed the radiation precautions which were indicated. Confirmational x-ray films of the localization of the eye plaque were carried out. The patient tolerated this without significant difficulty. He subsequently was discharged to home with radiation precaution instructions. He will be having the eye plaque removed on 10/17/04. This will deliver an apical dose of approximately 7,400 cGy. LESVIA SERRATO MD MT: [email or web address] Document: [id number] [place], [place] Name: RADHA VILLA OPERATIVE REPORT Page 2 of 1 LCN: EYE DSC: 10/13/2004 [place], [place] Name: RADHA VILLA MR#: : Procedure Date: -86 1940 10/13/2004 Surgeon: LESVIA SERRATO MD OPERATIVE REPORT Page 1 of 1 RETE PUDDLER documented in this encounter Plan of Treatment Upcoming Encounters Date Type Specialty Care Team Description 06/26/2022 Ancillary Procedure Cardiology Seng Canchola MD [address] [place] [address] [place] [phone] (Wo rk) 08/16/2022 Ancillary Procedure Cardiology Timothy Smith MD [address] [place] [id number] (Wo rk) 08/16/2022 Office Visit Cardiology Timothy Smith MD [address] [place] [phone] (Wo rk) documented as of this encounter Visit Diagnoses Not on filedocumented in this encounter
--- OUTSIDE RECORDS SUMMARY | 2022-06-22 09:00 | XMS_ITS | Encounter Summary ---
:1940 Author Organization [place] Address [address] [place] [address] Care Team Providers Name Role Phone Nas Cardenas MD Primary Care Provider Reason for Visit Reason Comments Chest Pain awoke with pain at 0600 8 Auth/Cert - Closed Specialty Diagnoses / Procedures Referred By Contact Refer red To Contact Intensive Care Diagnoses Unstable angina (H) [facility] [address] [place] [address] Phone: Fax: Referral ID Status Reason Start Date Expiration Date Visits Requ ested Visits Authorized [id number] Closed 02/01/2012 07/30/2012 1 1 Encounter Details Date Type Department Care Team Description 02/01/2012 - [facility] [place] [address] [place], [place] [id number] Unstable angina (H); 02/04/2012 Encounter [facility] Jayy Gill MD [address] [place] [address] HTN (hypertension); Surgical Atrial flutter (H) [address] [place] [address] Social History Tobacco Use Types Packs/Day Years Used Date Never Smoker Alcohol Use Standard Drinks/Week Comments Yes 0 (1 standard drink = 0.6 oz pure alcoho l) Sex Assigned at Date Recorded Not on file documented as of this encounter Last Filed Vital Signs Vital Sign Reading Time Taken Comments Blood Pressure 119/71 02/04/2012 11:31 AM CDT Pulse 74 02/01/2012 11:19 AM CDT Temperature 36.9 ??C (98.4 ??F) 02/04/2012 11:31 AM CDT Respiratory Rate 20 02/04/2012 11:31 AM CDT Oxygen Saturation 94% 02/04/2012 12:49 PM CDT Inhaled Oxygen Concentration - - Weight 140.8 kg (310 lb 8 oz) 02/04/2012 6:20 AM standi ng scale CDT Height 180.3 cm (5' 11) 02/01/2012 2:00 PM CDT Body Mass Index 43.31 02/01/2012 2:00 PM CDT documented in this encounter Discharge Summaries Beatriz Ho MD - 02/04/2012 9:08 AM CDT PRIMARY CARE PHYSICIAN: Dr. Nas Cardenas. DISCHARGE DIAGNOSES: 1. Acute coronary syndrome, with NSTEMI, status post angiogram carried out on 02/02/2012 which showed that the [place] vessels proximally occluded but the SVGs remain patent, no lesion that warrantsPCI. 2. Hypertension. 3. Hyperlipidemia. 4. Coronary artery disease. 5. Metabolic syndrome. 6. Atrial flutter on rate control with metoprolol. Lovenox and Coumadin initiated during this hospitalization. HOSPITAL COURSE: Radha Farooq is a 71-year-old gentleman who presented to the ER with chest discomfort. His chest discomfort was 6 hours prior to presentation. The pain was constant. He described itas heaviness, tightness, associated with shortness of breath. The patient in the ER was started on a nitroglycerin drip and IV heparin. His EKG showed atrial flutter. His troponins trended up. Cardiology was consulted and subsequently underwent an angiogram on 02/02/2012. The angiogram showed the [place] vessels proximally occluded but the SVGs remain patent. No lesion that warrants PCI. It was thought that atrial flutter contributed to his presentation. His IZABELA score is 2, and hence this warrants anticoagulation and consideration of either cardioversion or ablation at some point in the future.During his hospital course, he remained chest pain-free. On the day of discharge, subjectively he denies any complaints. OBJECTIVE: VITAL SIGNS: Blood pressure is 132/83, temperature 98.1, respiratory rate 18, O2 sat 95% on 2 liters, pulse 81. GENERAL: He is a heavyset male, alert, awake, oriented, in no acute distress. NECK: Appears supple. LUNGS: Appear to have a few crackles at the bases. HEART: Regular rate, S1, S2 normal. Distant heart sounds. ABDOMEN: Obese, soft, nontender with good bowel sounds. EXTREMITIES: There is no edema. DISCHARGE MEDICATIONS: 1. Lisinopril 5 mg p.o. b.i.d. 2. Toprol-XL 50 mg p.o. b.i.d. 3. Lovenox 1 mg/kg subq b.i.d. for 3 days. 4. Coumadin 5 mg p.o. q. day. 5. Aspirin 81 mg p.o. q. day. 6. Celebrex 200 mg p.o. b.i.d. 7. Pravachol 80 mg p.o. q. day. FOLLOW UP: We will have him follow up with his primary care physician in the next 2-3 days for checkof his INR. Of note, it has been recommended that the patient undergo a sleep study for possible sleep apnea andpossible cardioversion in the next month or so, and consideration of cardiac rehab. LUCAS HO MD MT: #[id number] Name: RADHA FAROOQ Account: [id number] : 1940 Admit Date: Discharge Date: Document: [id number] cc: Nas Cardenas MD documented in this encounter Discharge Instructions Discharge Sariah England RN - 02/04/2012 2:29 PM CDT Images from the original note were not included. After your Coronary Artery procedure limit your activity during your first few days at home.Do not strain or lift heavy objects.For [address]: drive car,lift over 3-5 lbs,do housework, yardwork,stooping or squatting, have sexual intercourse or drink alcohol. Have an adult stay with you overnight. A small bruise or lump at the insertion site is common. Call your Dr. if swelling or bruising increases or the leg(or arm) in which the catheter was inserted feels cold or numb. For leg,If bleeding occurs lay down and apply firm pressure and call 911.For wrist, sit and apply pressure for 10 min,if bleeding does not stop, call 911. Call your caregiver if the site becomes more painful or for a fever > 100.5.Do not have MRI test for 3 months after stent unless ok with cardiology. MEDICATION: AMINTA INHIBITOR You have been prescribed an AMINTA inhibitor. This refers to a special class of drugs used to treat high blood pressure (hypertension). These drugs include Lotensin (benazepril), Capoten (captopril), Vasotec (enalapril), Monopril (fosinopril), Prinivil and Zestril (lisinopril), Accupril (quinapril), and A ltace (ramipril). Some of these medicines are also used to treat congestive heart failure. DIRECTIONS FOR USE: Unless otherwise stated, take your medicine on an empty stomach either??1 hour before meals or??2 hours after a meal. It may take several weeks before the effect of this medicine begins. To be effective, this medicine must be taken at regular intervals on a daily basis. When you first start this medicine, measure your own blood pressure every few days to check your response to the medicine. You may measure your own blood pressure at home or have someone do it for you at a pharmacy, clinic or your doctor???s office. Notify your doctor if your pressure does not begin to improve within??1 week or if the blood pressure goes below 110/60 on two readings in a row (this istoo low). The goal for most persons is to get their blood pressure below 140/90. Do not skip doses or suddenly stop taking this medicine since this may cause your blood pressure to go very high. Talk to your doctor if you need to stop this medicine so you can reduce the dose gradually. WHAT TO WATCH FOR: POSSIBLE SIDE EFFECTS: Change or decrease in sense of taste (this effect wears off with time), persistent non-productive cough. Contact your doctor. Dizziness or faintness, especially when getting up after sitting/lying down for long periods (this effect wears off with time; get up more slowly). Swelling of the face, feet or legs. Contact your doctor. ALLERGIC REACTION: Rash, itching, swelling, trouble breathing or swallowing. Contact your doctor or return to this facility promptly. MEDICAL CONDITIONS: Before starting this medicine, be sure your doctor knows if: ?? You are or ?? You have kidney disease, lupus, or other collagen vascular disease DRUG INTERACTIONS: Before starting this medicine, be sure your doctor knows if you are taking any ofthe following drugs: ?? Aldactone (spironolactone), Dyrenium (triamterene), Dyazide, potassium supplements NOTE: While taking this medicine, avoid aspirin and nonsteroidal anti- inflammatory drugs such as ibuprofen, Advil, Motrin, and Naprosyn. These may make this medicine less effective. WARNINGS: ?? DO NOT DRIVE, ride a bicycle or operate dangerous equipment while taking this medicine until you know how it will affect you. [NOTE: This information topic may not include all directions, precautions, medical conditions, drug/food interactions and warnings for this drug. Check with your doctor, nurse, or pharmacist for any questions that you may have.] ?? [id number] [place] [address]. All rights reserved. This information is not intended as a substitute for professional medical care. Always follow your healthcare professional's instructions. ATRIAL FLUTTER Atrial flutter??is a condition where the heart beats at a very rapid rate. It is due to a disturbance in the electrical pathways of the heart. It is a sign of heart disease or other health problems affecting the heart. The most common symptom is??palpitations. This is the feeling that your heart is fluttering or beating fast or hard. When the heart beats too fast, it does not pump blood very well. This can cause other symptoms such as anxiety, fatigue, shortness of breath, chest pain, dizziness or fainting. If this is your first episode of atrial flutter, and you have no heart or lung disease, you may never have another episode again. But in most cases, atrial flutter comes and goes, lasting from a few hours to a couple of days. Sometimes the atrial flutter does not ever go away and becomes chronic. Atrial flutter may be caused by disease of the heart or other conditions in the body that affect theheart: ?? Coronary artery disease (arteriosclerosis) ?? High blood pressure ?? Disease of the heart valves ?? Enlarged heart Atrial flutter can occur without heart disease due to: ?? Overactive thyroid (hyperthyroid) ?? Chronic lung disease (COPD, emphysema, bronchitis) ?? Heavy alcohol use ?? Cardiac stimulants (cocaine, amphetamines, diet pills, certain decongestant cold medicines, caffeine or nicotine) ?? Infection Treating or removing these causes will improve success in the treatment of atrial flutter and reduceyour risk of recurrence. Atrial flutter can alternate back and forth with another abnormal rhythm called atrial fibrillation.The risk of stroke is higher with these conditions. Proper treatment can reduce your risk. HOME CARE: 1. Resume your usual activities as soon as you are feeling back to normal. 2. If you smoke, stop smoking. Contact your doctor or a local stop-smoking program for help. 3. Avoid stimulants (cocaine, amphetamines, diet pills, certain decongestant cold medicines, caffeine, or nicotine). 4. If medicine is prescribed to prevent recurrence of atrial fibrillation, take it exactly as directed. Some medicines must be taken daily, not just when you have symptoms, in order to be effective. 5. If you were prescribed warfarin (Coumadin) to reduce stroke risk, have your blood tested on a regular basis as advised by your doctor. This will ensure that the dose is correct for you. FOLLOW UP with your doctor or as advised by our staff. [NOTE: If you had an x-ray or EKG (cardiogram), it will be reviewed by a specialist. You will be notified of any new findings that may affect your care.] GET PROMPT MEDICAL ATTENTION if any of the following occur: ?? Increasing shortness of breath ?? Swelling??of the legs ?? Unexpected weight gain ?? Chest pain or palpitations (the sense that your heart is fluttering, beating fast or hard) ?? Fever of 100.4??F (38??C) or higher, or as directed by your healthcare provider ?? Cough with dark-colored or bloody sputum (mucus) ?? Pain, redness, or swelling in one leg ?? Signs of stroke: ?? Weakness or numbness of an arm or leg or one side of the face ?? Difficulty with speech or vision ?? Extreme drowsiness, confusion, dizziness or fainting ?? [id number] [facility], [address] [place] [address], [place] [address]. All rights reserved. This information is not intended as a substitute for professional medical care. Always follow your healthcare professional's instructions. MEDICATION: BETA-BLOCKERS You have been prescribed a beta-best. This is a special type of drug that contains many differentgeneric and brand names, such as Inderal, (propranolol), Tenormin (atenolol), Lopressor (metoprolol), Corgard (nadolol), and others. They are used for angina, high blood pressure, rapid heart rate, migraine headaches, and other problems. DIRECTIONS FOR USE: ?? Unless otherwise stated, take your medicine on an empty stomach either one half hour before mealsor 2 hours after a meal. If you find that it causes nausea when taken on an empty stomach, you may take it with food. Take the medicine at regular intervals and as directed. ?? If you were given this medicine for high blood pressure, measure your blood pressure every few days to check your response. You may measure your own blood pressure at home, or have someone do it foryou at a pharmacy, clinic, or your doctor???s office. Notify your doctor if your pressure does not begin to improve within 1 week. Notify your doctor if your blood pressure goes below 110/60 on 2 readings in a row (this is too low) or if your pulse stays below 60. The goal for most persons is to get their blood pressure below 140/90 and pulse under 100. ?? If you were told to take this medicine every day, do not skip doses or suddenly stop taking this medicine since this might make your condition worse. Talk to your doctor if you need to stop this medicine so you can reduce the dose gradually. WHAT TO WATCH FOR: POSSIBLE SIDE EFFECTS: Nausea, vomiting, cramps, gas (Take the medicine with food. Contact your doctor if symptoms persist). Sedation, fatigue, dizziness, confusion, diarrhea, or constipation (Contact your doctor if these effects persist). Shortness of breath, wheezing, swelling of feet or legs, slow pulse, fainting (Contact your doctor or return to this facility promptly). MEDICAL CONDITIONS: Before starting this medicine, be sure your doctor knows if you have any of the following conditions: ?? or ?? Asthma, chronic bronchitis or emphysema ?? Heart disease or diabetes ?? Thyroid, liver, or kidney disease DRUG INTERACTIONS: Before starting this medicine, be sure your doctor knows if you are taking any ofthe following drugs: ?? Tagamet (cimetidine), calcium channel blockers (Calan, verapamil), another beta-best, theophylline (Aminophylline, Theodur), MAO inhibitors (Parnate) tranylcypromine, Nardil (phenelzine) WARNING: ?? Do not drive, ride a bicycle, or operate dangerous equipment while taking this medicine until youknow how it will affect you. [NOTE: This information topic may not include all directions, precautions, medical conditions, drug/food interactions, and warnings, for this drug. Check with your doctor, nurse, or pharmacist for any questions that you may have.] ?? [id number] [facility], [address] [place] [address], [place] [address]. All rights reserved. This information is not intended as a substitute for professional medical care. Always follow your healthcare professional's instructions. ?? under 100. ?? If you were told to take this medicine every day, do not skip doses or suddenly stop taking this medicine since this might make your condition worse. Talk to your doctor if you need to stop this medicine so you can reduce the dose gradually. Educational handouts (Thomas) provided/reviewed for Warfarin therapy guide, warfarin dietary guidelines, Metoprolol, Lisinopril, and discharge instructions and care of wrist/arm after Angio. documented in this encounter Medications at Time of Discharge Medication Sig Dispensed Refills Start Date End Date ACYCLOVIR 400 MG OR 1 TABLET 3 TIMES 30 6 04/25/2004 TABS DAILY-as need for Cold sores pravastatin Take 80 mg by mouth At 0 0 06/30/2021 (PRAVACHOL) 80 MG Bedtime tablet aspirin 81 MG EC Take 81 mg by mouth 0 02/27/2013 tablet daily. celecoxib (CELEBREX) Take 200 mg by mouth 2 0 02/27/2013 200 MG capsule times daily. enoxaparin (LOVENOX) Inject 1 mL 6 mL 0 02/04/2012 150 MG/ML Subcutaneous every 12 injectionIndications: hours. Atrial flutter (H) lisinopril Take 5 mg by mouth 0 02/04/20122015 (PRINIVIL,ZESTRIL) 5 daily. MG tablet lisinopril Take 1 tablet by mouth 30 tablet 0 02/04/2012 (PRINIVIL,ZESTRIL) 5 2 times daily. MG tabletIndications: HTN (hypertension) metoprolol (TOPROL-XL) Take 100 mg by mouth 0 03/201212/10/2014 50 MG 24 hr tablet daily. metoprolol (TOPROL-XL) Take 1 tablet by mouth 30 tablet 0 0 02/04/2012 02/27/2013 50 MG 24 hr 2 times daily. tabletIndications: Atrial flutter (H) warfarin (COUMADIN) 5 Take 1 tablet by mouth 10 tablet 1 12/10/2014 MG tabletIndications: daily. Atrial flutter (H) documented as of this encounter Progress Notes Willi Richard MD - 02/04/2012 11:08 AM CDT Cardiology Progress Note Interval History: S: Doing well; no cp, sob; feeling better Medications: ??? furosemide 20 mg Intravenous Once ??? metoprolol 50 mg Oral BID ??? warfarin 7.5 mg Oral ONCE at 18:00 ??? lisinopril 5 mg Oral BID ??? lisinopril 2.5 mg Oral Once ??? DISCONTD: lisinopril 2.5 mg Oral BID ??? sodium chloride 3 mL Intravenous Q8H ??? enoxaparin 1 mg/kg Subcutaneous Q12H ??? pravastatin 80 mg Oral Daily ??? sodium chloride 3 mL Intravenous Q8H ??? pantoprazole 40 mg Oral QAM AC ??? senna-docusate 1-2 tablet Oral BID ??? insulin aspart 1-5 Units Subcutaneous TID AC ??? insulin aspart 1-2.5 Units Subcutaneous At Bedtime ??? aspirin EC 325 mg Oral Daily Physical Exam: Patient Vitals in the past 24 hrs: BP Temp Temp src Resp SpO2 Weight 02/04/12 0726 132/83 mmHg 98.1 ??F (36.7 ??C) Oral 18 95 % - 02/04/12 0620 - - - - - 140.842 kg (310 lb 8 oz) 02/04/12 0407 144/76 mmHg 98.7 ??F (37.1 ??C) Oral 18 93 % - 02/04/12 0022 131/69 mmHg 97.9 ??F (36.6 ??C) Oral 18 95 % - 02/03/12 1910 - - - - 96 % - 02/03/12 1900 122/71 mmHg 97.2 ??F (36.2 ??C) Oral 18 89 % - 02/03/12 1452 151/79 mmHg 97 ??F (36.1 ??C) Oral 20 93 % - 02/03/12 1423 118/73 mmHg - - - - - 02/03/12 1330 183/113 mmHg - - 23 - - 02/03/12 1315 158/115 mmHg - - 11 99 % - 02/03/12 1215 128/84 mmHg - - 23 94 % - 02/03/12 1115 194/88 mmHg - - 22 91 % - Lungs: Decreased BS at bases, otherwise clear Heart: irreg. Variable S1, 1-2/6 systolic murmur Extremities: 1+edema Data: All laboratory data reviewed ROUTINE IP LABS (Last four results) BMP Lab 02/04/1218 02/02/12 0526 02/01/12 0845 NA 142 139 141 POTASSIUM 4.1 4.1 4.1 CHLORIDE 101 101 99 [place] 8.8 8.7 8.8 CO2 30 27 30 BUN 14 16 20 CR 0.68 0.59* 0.59* GLC 119* 140* 181* CBC Lab 02/04/12 0618 02/03/12 0550 02/01/12 1518 02/01/12 0845 WBC 7.7 -- 7.6 6.1 RBC 4.90 -- 4.71 4.93 HGB 15.7 -- -- -- HCT 47.1 -- 44.7 47.0 MCV 96 -- 95 95 MCH 32.0 -- 31.8 32.0 MCHC 33.3 -- 33.6 33.6 RDW 14.1 -- 13.8 14.0 PLT 152 140* 148* 161 INR Lab 02/04/12 0618 02/03/12 0550 02/02/12 1630 INR 1.15* 1.09 1.05 EKG results: Reviewed if available. Performed on 02/04/2012 Results: Atrial flutter with variable AV block Assessment and Plan: A: 1)stable cardiac condition 2)S/P [place] 3)Hypertension-improved control 4)atrial flutter-reasonable heart rate control at rest P: 1)Telemetry 2)Continue metoprolol xl, lisinopril-may need adjustment of doses with activity 3)Anticoagulation-Lovenox to coumadin 4)Patient would prefer one month of anticoagulation before considering cardioversion or ablation. Time Spent: > than 30 minutes WILLI RICHARD MD Essie Cleary - 02/03/2012 2:46 PM CDT 02/03/12 1401 Quick Adds Type of Visit Initial (Cardiac (OT)) Living Environment [R] Lives With spouse Living Arrangements house Self-Care Usual Activity Tolerance good Current Activity Tolerance moderate Regular Exercise no Equipment Currently Used at Home no [R] Functional Level Prior [R] Ambulation 0 - independent [R]Transferring 0 - independent General Information, OT Eval Onset of Illness/Injury or Date of Surgery - Date 02/02/12 Referring Physician Willi Richard Patient/Family Goals Statement To return home Pertinent History of Current Problem Pt admitted with chest pain. Pt sustained NSTEMI and is now s/pcath. Precautions/Limitations no known precautions/limitations Heart Disease Risk Factors Lack of physical activity;Overweight;Family history;Medical history;Age General Observations Pt sitting on EOB upon OT arrival. Agreeable to OT session. General Info Comments Pt pleasant and cooperative throughout session. Pain Assessment Patient Currently in Pain No Range of Motion (ROM), OT Eval Range of Motion (WFL) no deficits were identified Transfer Skill: Sit to Stand Level of [place]: Sit/Stand independent IADL Evaluation Previous Responsibilities yardwork;medication management;finances;driving Activities of Daily Living Analysis Impairments Contributing to Impaired Activities of Daily Living post surgical precautions;strength decreased General Therapy Interventions Planned Therapy Interventions home program guidelines;progressive activity/exercise;risk factor education Clinical Impression, OT Eval Criteria for Skilled Therapeutic Interventions Met yes;treatment indicated OT Diagnosis decreased activity tolerance Influenced by the following impairments see above Rehab Potential good, to achieve stated therapy goals Therapy Frequency other (see comments) (1x) Predicted Duration of Therapy Intervention (days/wks) 1x eval and treat Anticipated Discharge Disposition home w/ outpatient services Risks and Benefits of Treatment have been explained. Yes Patient, Family & other staff in agreement with plan of care Yes Total Evaluation Time Total Evaluation Time (Minutes) 10 Jayy Gill MD - 02/03/2012 12:13 PM CDT This patient is a 71 year old male with a significant past medical history of CABG times 4In 1985 and coronary artery disease who presents with NSTEMI S/P cath and being followed by cardiology Interval history Feels better No chest pain No shortness of breath No fever Past Medical History: CAD S/P CABG times 1985 Hyperlipidemia Past Surgical History: CABG GB SURGERY Current Medications ??? metoprolol 50 mg Oral BID ??? lisinopril 2.5 mg Oral BID ??? warfarin 7.5 mg Oral ONCE at 18:00 ??? sodium chloride 3 mL Intravenous Q8H ??? enoxaparin 1 mg/kg Subcutaneous Q12H ??? warfarin 7.5 mg Oral ONCE at 18:00 ??? DISCONTD: metoprolol 100 mg Oral Daily ??? pravastatin 80 mg Oral Daily ??? sodium chloride 3 mL Intravenous Q8H ??? pantoprazole 40 mg Oral QAM AC ??? senna-docusate 1-2 tablet Oral BID ??? insulin aspart 1-5 Units Subcutaneous TID AC ??? insulin aspart 1-2.5 Units Subcutaneous At Bedtime ??? aspirin EC 325 mg Oral Daily ??? DISCONTD: metoprolol 12.5 mg Oral BID Physical Exam: Vitals were reviewed Blood pressure 176/106, pulse 74, temperature 97.8 ??F (36.6 ??C), temperature source Oral, resp. rate 15, height 1.803 m (5' 11), weight 143.4 kg (316 lb 2.2 oz), SpO2 98.00%. Constitutional: awake, alert, cooperative and no apparent distress Eyes: lids and lashes normal, pupils equal, round and reactive to light, extra-ocular muscles intact, sclera clear and conjunctiva normal ENT: normocepalic, without obvious abnormality, atramatic, external ears without lesions Neck: supple, symmetrical, trachea midline, skin normal, no stridor and no lymphadenopathy Hematologic / Lymphatic: no cervical lymphadenopathy and no supraclavicular lymphadenopathy Back: symmetric, no curvature and spinous processes are non-tender on palpation Lungs: no increased work of breathing, good air exchange, no retractions and clear to auscultation Cardiovascular: regular rate and rhythm, normal S1 and S2, no S3, no S4 and no murmur noted Abdomen: normal bowel sounds, soft, non-distended and non-tender Musculoskeletal: no lower extremity pitting edema present there is no redness, warmth, or swelling of the joints full range of motion noted Neurologic: Mental Status Exam: Level of Alertness: awake Cranial Nerves: cranial nerves II-XII are grossly intact Motor Exam: moves all extremities well and symmetrically Sensory: Sensory intact Neuropsychiatric: General: normal, calm and normal eye contact Level of consciousness: alert / normal Affect: normal Skin: no bruising or bleeding, normal skin color, texture, turgor, no rashes and no lesions Data: Labs: Lab 02/02/12 0526 NA 139 POTASSIUM 4.1 CHLORIDE 101 CO2 27 ANIONGAP 10 GLC 140* BUN 16 CR 0.59* GFRESTIMATED >90 GFRESTBLACK >90 AFRICA 8.7 Lab 02/03/12 0550 02/01/12 1518 02/01/12 0845 WBC -- 7.6 6.1 HGB -- 15.0 15.8 HCT -- 44.7 47.0 MCV -- 95 95 PLT 140* 148* 161 Lab 02/02/12 0526 02/01/12 2359 02/01/12 1830 TROPONIN -- -- -- TROPI 5.030* 4.260* 2.330* TROPR -- -- -- Assessment and Recommendation: Assessment: This patient is a 71 year old male with a significant past medical history of CABG times 4In 1985 and coronary artery disease who presents with chest pain requiring NTG drip and elevate troponin concerning for Unstable Angina.He has ACS with NSTEMI S/P cath by Dr Alves 02/01 1.Acute coronary syndrome -NSTEMI -on lovenox,bb asa -cards following -cp free -cont meds -no stentable lesion per cards 2.CAD -continue meds -cath done -stable 3.Hyperlipidemia -cont statin 4.Hypertension -denies h/o HTN -Cont current meds 5.Hyperglycemia- -cont SSI -hgba1c 6.7 -may be diabetic ,need to repeat on discharge -counseled 6.Atrial flutter -intermittent -rate controlled -cont rate control -lovenox and coumadin -ablation discussed -further plan per cardiology Disposition -per cards -may transfer to tele Willi Richard MD - 02/03/2012 10:33 AM CDT Cardiology Progress Note Interval History: S: Doing well; no cp, sob Medications: ??? metoprolol 50 mg Oral BID ??? lisinopril 2.5 mg Oral BID ??? sodium chloride 3 mL Intravenous Q8H ??? enoxaparin 1 mg/kg Subcutaneous Q12H ??? warfarin 7.5 mg Oral ONCE at 18:00 ??? DISCONTD: metoprolol 100 mg Oral Daily ??? pravastatin 80 mg Oral Daily ??? sodium chloride 3 mL Intravenous Q8H ??? pantoprazole 40 mg Oral QAM AC ??? senna-docusate 1-2 tablet Oral BID ??? insulin aspart 1-5 Units Subcutaneous TID AC ??? insulin aspart 1-2.5 Units Subcutaneous At Bedtime ??? aspirin EC 325 mg Oral Daily ??? DISCONTD: metoprolol 12.5 mg Oral BID Physical Exam: Patient Vitals in the past 24 hrs: BP Temp Temp src Resp SpO2 02/03/12 0939 140/79 mmHg - - 28 92 % 02/03/12 0815 118/58 mmHg - - 9 89 % 02/03/12 0800 143/72 mmHg 97.8 ??F (36.6 ??C) Oral 9 91 % 02/03/12 0745 134/87 mmHg - - 16 93 % 02/03/12 0730 128/62 mmHg - - 10 92 % 02/03/12 0700 137/79 mmHg - - 8 92 % 02/03/12 0600 137/89 mmHg - - 15 - 02/03/12 0500 121/58 mmHg - - 23 - 02/03/12 0400 123/75 mmHg 98.4 ??F (36.9 ??C) Oral 18 98 % 02/03/12 0300 102/61 mmHg - - 18 - 02/03/12 0200 147/101 mmHg - - 17 - 02/03/12 0100 105/58 mmHg - - 26 - 02/03/12 0000 132/80 mmHg 98 ??F (36.7 ??C) Oral 16 98 % 02/02/12 2300 137/96 mmHg - - 16 - 02/02/12 2200 140/88 mmHg - - 16 - 02/02/12 2100 118/105 mmHg - - 18 - 02/02/12 2000 132/81 mmHg 98.3 ??F (36.8 ??C) Oral 19 98 % 02/02/12 1730 129/75 mmHg - - 19 - 02/02/12 1715 137/79 mmHg - - 20 - 02/02/12 1700 126/81 mmHg - - 22 - 02/02/12 1645 118/63 mmHg - - 30 - 02/02/12 1630 107/56 mmHg - - 28 - 02/02/12 1615 135/82 mmHg - - 28 - 02/02/12 1600 129/80 mmHg - - 10 - 02/02/12 1544 120/83 mmHg - - 19 - 02/02/12 1540 124/78 mmHg - - 24 - 02/02/12 1515 - - - 24 92 % 02/02/12 1511 108/62 mmHg - - 10 92 % 02/02/12 1509 120/65 mmHg - - 20 - 02/02/12 1130 107/61 mmHg - - 8 - 02/02/12 1100 117/64 mmHg - - 19 - Lungs: Decreased BS at bases with few crackles Heart: Irreg. Variable S1, 1/6 systolic murmur Extremities: trace-1+ edema Data: All laboratory data reviewed ROUTINE IP LABS (Last four results) BMP Lab 02/02/12 0526 02/01/12 0845 NA 139 141 POTASSIUM 4.1 4.1 CHLORIDE 101 99 AFRICA 8.7 8.8 CO2 27 30 BUN 16 20 CR 0.59* 0.59* GLC 140* 181* CBC Lab 02/03/12 0550 02/01/12 1518 02/01/12 0845 WBC -- 7.6 6.1 RBC -- 4.71 4.93 HGB -- 15.0 -- HCT -- 44.7 47.0 MCV -- 95 95 MCH -- 31.8 32.0 MCHC -- 33.6 33.6 RDW -- 13.8 14.0 PLT 140* 148* 161 INR Lab 02/03/12 0550 02/02/12 1630 INR 1.09 1.05 EKG results: Reviewed if available. Performed on 02/03/2012 Results: Atrial flutter/sinus rhythm Assessment and Plan: A: 1)S/P [place] with elevated troponin 2)atrial flutter with relatively controlled heart rate 3)ASCVD with distant CABG in 1985. P: 1)Telemetry 2)Adjust metoprolol xl to bid dosing and add lisinopril for better bp control 3)Anticoagulation 4)Consider possible EP assessment for atrial flutter ablation. 5)Cardiac rehab Time Spent: > than 30 minutes WILLI RICHARD MD Tanya Severino RT - 02/03/2012 9:06 AM CDT Overnight oximetry study completed. Preliminary results in paper chart. RT Kelvin 02/03/2012 9:07 AM Sherman Messer RN - 02/03/2012 5:58 AM CDT Afebrile. Uneventful night. Denies any pain. Sleep study done. 12-Lead EKG done this AM to verify current cardiac rhythm. Guera Mckeon, RT - 02/02/2012 11:36 PM CDT Patient set up on overnight oximetry. 2L nasal cannula, SpO2 95%. Guera Mckeon , RT 02/02/2012 11:38 PM José Luevano MD - 02/02/2012 2:50 PM CDT No new obstructive disease at cath. Metoprolol increased by Dr. Alves. Would rec long-term anticoagulation as outlined in my note and to this end am starting lovenox this evening with initiation of coumadin. The patient is obese, likely diabetic, 71 years of age. I have also ordered overnight oximetry with a readout this evening José Luevano MD - 02/02/2012 11:38 AM CDT [facility] Cardiology Progress Note Problem List: Patient Active Problem List Diagnoses Code ??? OTHER PSORIASIS 696.1 ??? AORTOCORONARY BYPASS STATUS V45.81 ??? 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 Pain-free with NTG. In atrial flutter, asymptomatic. No further CP, no dyspnea, no palpitations, no lightheadedness, no PND/orthopnea. Review of Systems: The Review of Systems is negative other than noted in the HPI. Medications: ??? nitroglycerin 50 mg in D5W 250 mL (adult std) ??? heparin 5,500 Units Intravenous Once ??? pravastatin 80 mg Oral Daily ??? sodium chloride 3 mL Intravenous Q8H ??? pantoprazole 40 mg Oral QAM AC ??? senna-docusate 1-2 tablet Oral BID ??? insulin aspart 1-5 Units Subcutaneous TID AC ??? insulin aspart 1-2.5 Units Subcutaneous At Bedtime ??? metoprolol 12.5 mg Oral BID ??? aspirin EC 325 mg Oral Daily ??? clopidogrel 300 mg Oral Once ??? DISCONTD: sodium chloride 3 mL Intravenous Q8H ??? DISCONTD: aspirin 81 mg Oral Daily ??? DISCONTD: aspirin 324 mg Oral Once ??? DISCONTD: aspirin EC 325 mg Oral Daily ??? DISCONTD: sodium chloride 3 mL Intravenous Q8H ??? DISCONTD: clopidogrel 75 mg Oral Daily Physical Exam: Most recent vitals: Blood pressure 116/84, pulse 74, temperature 98.6 ??F (37 ??C), resp. rate 28, height 1.803 m (5' 11), weight 145.6 kg (320 lb 15.8 oz), SpO2 97.00%. Vital Sign Ranges Temperature Temp Av.5 ??F (36.9 ??C) Min: 98.3 ??F (36.8 ??C) Max: 98.6 ??F (37 ??C) Blood pressure Systolic (24hrs), Av mmHg, Min:81 mmHg, Max:137 mmHg Diastolic (24hrs), Av mmHg, Min:44 mmHg, Max:98 mmHg Pulse No Data Recorded Respirations Resp Av.5 Min: 0 Max: 33 Pulse oximetry SpO2 Av.5 % Min: 94 % Max: 100 % Last 4 weights: Wt Readings from Last 4 Encounters: 02/02/12 145.6 kg (320 lb 15.8 oz) 08/31/04 139.254 kg (307 lb) 04/25/04 137.893 kg (304 lb) I&O: Intake/Output Summary (Last 24 hours) at 02/02/12 1139 Last data filed at 02/02/12 0700 Gross per 24 hour Intake 1141.11 ml Output 2680 ml Net -1538.89 ml Telemetry: A flutter Physical Exam: Constitutional: in no apparent distress and obese Skin: normal and no jaundice Head: Normocephalic, atramatic Eyes: pupils equal, round and reactive to light, extra ocular muscles intact, sclera clear, conjunctiva normal Neck: JVP not well visualized. Carotids normal in upstroke, volume and contour Chest: Normal Symmetry and no tenderness Lungs: normal and symmetric, clear to auscultation Cardiovascular: S1, S2 appear regular, no murmur rub or gallop noted. PMI nonpalpable Abdomen: Normal and normal bowel sounds Extremities and Back: No edema Neurological: Awake, alert, oriented to name, place and time. Cranial nerves II-XII are grossly intact. Motor is 5 out of 5 bilaterally. Cerebellar finger to nose, heel to corbett intact. Sensory is intact. Babinski down going, Romberg negative, and gait is normal. No gross or focal neurologic abnormalities Data: Lab Results Component Value Date WBC 7.6 02/01/2012 HGB 15.0 02/01/2012 HCT 44.7 02/01/2012 PLT 148* 02/01/2012 ALT 52 04/25/2004 AST 40 04/25/2004 NA 139 02/02/2012 BUN 16 02/02/2012 CO2 27 02/02/2012 TSH 1.64 02/02/2012 No results found for this basename: troponinies, cktotal, ckmb, ckmbindex HDL 37 04/25/2004 LDL 113 04/25/2004 CHOL 184 04/25/2004 TRIG 172 04/25/2004 EKG results: Imaging: Imaging: Assessment and Plan: 71 yo man with asymptomatic atrial flutter and recent NSTEMI (d.1). Plan for cath today. Have discussed at length options for intervention and the need for Plavix if a stent is used. Also discussed at length the need for aspirin or coumadin with atrial flutter and risk of bleed on triple therapy. My feeling is that he should simply continue on coumadin given his lack of symptoms, likely CARLO (may do overnight oximetry) and obesity, diabetes and age. We have discussed the consideration of ablation as an option as well, however. Further recs will be pending the findings at angiography- Attestation: Total time: 40 minutes/ 30 spent in coordination of care and counselling. José Luevano MD 02/02/2012 11:39 AM Jayy Gill MD - 02/02/2012 9:15 AM CDT Interval history Feels better No chest pain No shortness of breath Past Medical History: CAD S/P CABG times 1985 Hyperlipidemia Past Surgical History: CABG GB SURGERY Physical Exam: Vitals were reviewed Blood pressure 116/84, pulse 74, temperature 98.6 ??F (37 ??C), resp. rate 28, height 1.803 m (5' 11), weight 145.6 kg (320 lb 15.8 oz), SpO2 97.00%. Constitutional: awake, alert, cooperative and no apparent distress Eyes: lids and lashes normal, pupils equal, round and reactive to light, extra-ocular muscles intact, sclera clear and conjunctiva normal ENT: normocepalic, without obvious abnormality, atramatic, external ears without lesions Neck: supple, symmetrical, trachea midline, skin normal, no stridor and no lymphadenopathy Hematologic / Lymphatic: no cervical lymphadenopathy and no supraclavicular lymphadenopathy Back: symmetric, no curvature and spinous processes are non-tender on palpation Lungs: no increased work of breathing, good air exchange, no retractions and clear to auscultation Cardiovascular: regular rate and rhythm, normal S1 and S2, no S3, no S4 and no murmur noted Abdomen: normal bowel sounds, soft, non-distended and non-tender Musculoskeletal: no lower extremity pitting edema present there is no redness, warmth, or swelling of the joints full range of motion noted Neurologic: Mental Status Exam: Level of Alertness: awake Cranial Nerves: cranial nerves II-XII are grossly intact Motor Exam: moves all extremities well and symmetrically Sensory: Sensory intact Neuropsychiatric: General: normal, calm and normal eye contact Level of consciousness: alert / normal Affect: normal Skin: no bruising or bleeding, normal skin color, texture, turgor, no rashes and no lesions Data: Labs: Lab 02/02/12 0526 NA 139 POTASSIUM 4.1 CHLORIDE 101 CO2 27 ANIONGAP 10 GLC 140* BUN 16 CR 0.59* GFRESTIMATED >90 GFRESTBLACK >90 AFRICA 8.7 Lab 02/01/12 1518 02/01/12 0845 WBC 7.6 6.1 HGB 15.0 15.8 HCT 44.7 47.0 MCV 95 95 PLT 148* 161 Lab 02/02/12 0526 02/01/12 2359 02/01/12 1830 TROPONIN -- -- -- TROPI 5.030* 4.260* 2.330* TROPR -- -- -- Assessment and Recommendation: Assessment: This patient is a 71 year old male with a significant past medical history of CABG times 4In 1985 and coronary artery disease who presents with chest pain requiring NTG drip and elevate troponin concerning for Unstable Angina. 1.Acute coronary syndrome -NSTEMI -on heparin and nitro gtt -plan to cath noted 2.CAD -continue meds -cath today 3.Hyperlipidemia -cont statin 4.Morbid Obesity -counseled 5.Hyperglycemia- -cont SSI -hgba1c 6.7 -may be diabetic ,need to repeat on discharge -counseled Disposition -cath today -per cards documented in this encounter H&P Notes Jayy Gill MD - 02/01/2012 2:41 PM CDT [facility] Hospitalist Admission Note Name: Radha Farooq Date of : 1940 Age: [age] year old Date of admission: 02/01/2012 Primary care provider: Nas Cardenas MD Chief Complaint: Chest pain History is obtained from the patient History of Present Illness: This patient is a 71 year old male with a significant past medical history of coronary artery disease who presents with the following condition requiring a hospital admission: Chest Pain Radha Farooq complains of chest pain. Onset was 6 hours ago. Symptoms have been unchanged since that time. The patient's pain is constant. The patient describes the pain as heaviness, tightness and does not radiate. Patient rates pain as a 8/10 in intensity. Associated symptoms are: dyspnea. Aggravating factors are: none. Alleviating factors are: none. Patient's cardiac risk factors are: previous Ischemic Heart Disease and previous coronary artery bypass graft. Patient's risk factors for DVT/PE: none known. Previous cardiac testing: four years ago but no stent was placed. Patient wake up at 6 am this morning with pain as above.He used his old NTG tab with no improvement.His then drove him to ED for evaluation. Patient was started on NTG drip and heparin and I was asked to admit patient. Past Medical History: CAD S/P CABG times 4 1985 Hyperlipidemia Past Surgical History: CABG GB SURGERY Social History: History Substance Use Topics ??? Smoking status: Never Smoker ??? Smokeless tobacco: Not on file ??? Alcohol Use: Yes Family History: Family History Problem Relation Age of Onset ??? Heart Father ??? Obesity Paternal Grandmother ??? Obesity Daughter ??? Obesity Son Allergies: Allergies Allergen Reactions ??? No Known Allergies Medications: Prescriptions prior to admission Medication Sig Dispense Refill ??? aspirin 81 MG EC tablet Take 81 mg by mouth daily. ??? celecoxib (CELEBREX) 200 MG capsule Take 200 mg by mouth 2 times daily. ??? pravastatin (PRAVACHOL) 80 MG tablet Take 80 mg by mouth daily. ??? ACYCLOVIR 400 MG OR TABS 1 TABLET 3 TIMES DAILY-as need for Cold sores 30 6 Review of Systems: A Comprehensive greater than 10 system review of systems was carried out. Pertinent positives and negatives are noted above in HPI. Otherwise negative for contributory information. Physical Exam: Vitals were reviewed Blood pressure 110/71, pulse 74, temperature 97.1 ??F (36.2 ??C), temperature source Oral, resp. rate 23, height 1.803 m (5' 11), weight 145.1 kg (319 lb 14.2 oz), SpO2 96.00%. Constitutional: awake, alert, cooperative and no apparent distress Eyes: lids and lashes normal, pupils equal, round and reactive to light, extra-ocular muscles intact, sclera clear and conjunctiva normal ENT: normocepalic, without obvious abnormality, atramatic, external ears without lesions Neck: supple, symmetrical, trachea midline, skin normal, no stridor and no lymphadenopathy Hematologic / Lymphatic: no cervical lymphadenopathy and no supraclavicular lymphadenopathy Back: symmetric, no curvature and spinous processes are non-tender on palpation Lungs: no increased work of breathing, good air exchange, no retractions and clear to auscultation Cardiovascular: regular rate and rhythm, normal S1 and S2, no S3, no S4 and no murmur noted Abdomen: normal bowel sounds, soft, non-distended and non-tender Musculoskeletal: no lower extremity pitting edema present there is no redness, warmth, or swelling of the joints full range of motion noted Neurologic: Mental Status Exam: Level of Alertness: awake Cranial Nerves: cranial nerves II-XII are grossly intact Motor Exam: moves all extremities well and symmetrically Sensory: Sensory intact Neuropsychiatric: General: normal, calm and normal eye contact Level of consciousness: alert / normal Affect: normal Skin: no bruising or bleeding, normal skin color, texture, turgor, no rashes and no lesions Data: All laboratory data reviewed All laboratory and imaging data in the past 24 hours reviewed All cardiac studies reviewed by me. All imaging studies reviewed by me. EK: Atrial flutter with variable AV block, nonspecific intraventricular conduction delay, T wave abnormality, consider inferior ischemia. Heart rate 86 bpm, QT/QTc 422/504 ms, R axes 7. Abnormal ECG. 0953 Repeat ECG: Sinus rhythm with premature supraventricular complexes, nonspecific intraventricular block, nonspecific T wave abnormality. Heart rate 78 bpm, MA Interval 178 ms, QT/QTc 378/430 ms, R Axes 3. Abnormal ECG. No change compared to EKG dated 02/01/2012 (noted above) Imaging: Radiology results from 02/01/12 -X-RAY CHEST 2 VWS IMAGECAST RESULT Value: CHEST TWO VIEWS February 01, 2012 9:44 AM HISTORY: Chest pain. COMPARISON: None. FINDINGS: Heart is enlarged in size. Central vasculature is mildly prominent. Lungs are clear. IMPRESSION: Cardiomegaly. Question mild central pulmonary vascular congestion. Labs: Lab 02/01/12 0845 NA 141 POTASSIUM 4.1 CHLORIDE 99 CO2 30 ANIONGAP 12 GLC 181* BUN 20 CR 0.59* GFRESTIMATED >90 GFRESTBLACK >90 AFRICA 8.8 Lab 02/01/12 0845 WBC 6.1 HGB 15.8 HCT 47.0 MCV 95 PLT 161 Lab 02/01/12 1010 02/01/12 0845 TROPONIN -- -- TROPI 0.047* 0.026 TROPR -- -- No results found for this basename: TSH:3 in the last 168 hours Recent labs and studies reviewed. Patient`s old medical records reviewed and case discussed with the ED physician. Assessment and Recommendation: Assessment: This patient is a 71 year old male with a significant past medical history of CABG times 4In 1985 and coronary artery disease who presents with chest pain requiring NTG drip and elevate troponin concerning for Unstable Angina. 1.Acute coronary syndrome 2.CAD 3.Hyperlipidemia 4.Morbid Obesity 5.Hyperglycemia-Non fasting Recommendations: Admit to hospitalist Admit to inpatient and intensive care Oxygen continued Pain management: acetominophen, anxiolytics and oral narcotics Nausea and vomiting control measures Respiratory therapy Additional orders: continue NTG drip,heparin drip,ASA,will add BB,will get Echo,serial troponin,continue statin.hgb A1C Cardiac diet Bed rest with bathroom privileges Discussed treatment plan with the patient Inpatient consult with cardiology anticipate discharge to home with home care services and Anticipate discharge in 2 days documented in this encounter Procedure Notes Julianna Vazquez MD - 02/05/2012 3:22 PM CDTAssociated Order(s): PULMONARY FUNCTION TEST; PULMONARY FUNCTION TEST Interpretation of Nocturnal Recording Oximetry for study night of: 02/02/2012. Study running from 5929 to 9172. (See attached graphics in paper chart) This study was: 1. 2 liters of oxygen by nasal cannula 2. Abnormal study Findings include: 1. Bradycardia 2. Tachycardia 3. Multiple desaturations below 90% 4. Repetitive and suggestive of Sleep Disordered Breathing 5. Asleep sats documented: 92% Suggested follow up: 1. Clinical correlation 2. Schedule Outpatient Sleep Consultation Other: Abnormal study with REM pattern-like episodic desaturations despite O2, to a anderson of 81%; 2%of recording <89% saturation. Mean pulse 80 beats per minute with rate 28-119 bpm or yoselin-tachycardia in response to desaturations. JULIANNA VAZQUEZ MD MT: Name: RADHA FAROOQ Account: [id number] : 1940 Procedure Date: 02/02/2012 Document: [id number] Umair Alves MD - 02/02/2012 2:58 PM CDT Radha Farooq Date of : 1940 Age: [age] year old PROCEDURES PERFORMED: 1. Saphenous venous graft angiogram/Left internal mammary angiogram 2. Coronary angiogram. 3. Left heart catheterization. 4. Left ventriculogram. APPROACH: left radial artery. COMPLICATIONS: None noted. INDICATION FOR THE PROCEDURE: Radha Farooq is a 71 year old male with CAD sp CABG 1985. The numberof bypass grafts placed is unavailable although the patient underwent diagnostic angiography at an outside institution 4 years ago and no intervention was performed. He presents with prolonged chest pain, a troponin elevation to 5.0 and atrial flutter of uncertain duration, ventricular response rates in the 80s and at times low 90s. Diagnostic angiography with possible intervention was recommended by. We have explained the risks of , myocardial infarction, stroke, hematoma, bleeding, infection, renal failure, embolus, arrhythmia, use of stents, need for regional clinical director thienopyridine therapy, restenosis, the alternative of medical therapy alone, risk of peripheral vascular complications, and possible urgent bypass surgery for failed PCI. The patient voiced understanding and wishedto proceed. Radha Farooq has a good left radial and ulnar pulse with a normal Ilan's sign. PROCEDURES: 1. SVG and RAMIREZ angiography. Theleft radialregion was prepped and draped in standard fashion and infiltrated with 1% lidocaine. The left radialartery was entered percutaneously with a Cook needle, and with Seldinger technique, a 6 [place] sheath placed in the right radial artery. We gave no additional units of heparin since his heparin was stopped upon arrival in [employer]. We gave 2.5 mg of verapamil and 400 mcg of nitroglycerin intra-arterially. We advanced a 4 Fr RAMIREZ catheter under fluoroscopic guidance and placed the catheter in the ascending aorta. We measured pressures. We then seated the catheter in the ostium of the left internal mammary artery . Diagnostic views were taken in orthogonal projections. A 5Fr Manas catheter was then seated in the ostium of the SVG to the LAD.. LAD SVG graft Angiography was performed with orthogonal views. Later in the case a 6 Fr Right SVG bypass catheter was used to cannulate the SVG to RCA 2) [place] CAG The [place] RCA was cannulated with a 5Fr Manas catheter and the LMCA was cannulated with a 6Fr JL4. Orthogonal views were performed. 2. Left heart catheterization. We exchanged for [id number] pigtail catheter. This catheter was advanced under fluoroscopic guidance. We measured crossed the aortic valve. We noted no gradient. We measured pre left ventriculogram pressures. 3. Left ventriculogram. We next performed a left ventriculogram, injecting contrast in the 30-degreeRAO view. We measured pressures in the ventricle. We pulled the catheter across the aortic valve. Wenoted no gradient. The catheter was removed from the sheath. The sheath was removed from the access site.Hemostasis achieved with no hematoma and a good left radial pulseThe patient was sent back to the Telemetry for observation. No complications were observed. Total contrast was 72 mL Optiray 350. Total fluoroscopy time was 2.6 minutes. FINDINGS: Hemodynamics LEDP 20 Angiography: Left ventriculogram: LV chamber size is mildly dilated. Ejection fraction estimated at 60% with no regional wall motion abnormalities. No mitral insufficiency. Aortic root size is normal. Coronary Angiography: Left main: distally occluded . LAD: Seen only with injection of SVG to mid LAD. Proximal vessel occluded, but partially fills retrograde via injection of the SVG to mid LAD. The small to moderate D1 fills via ipsicollaterals from [place] LAD via injection of SVG. There is a subtotal narrowing at the origin of this vessel. The mid and distal LAD are small caliber and demonstrate atherosclerotic change, but no focal stenosis. CX: Seen only with injection of SVG to large M1. There is a subtotal stenosis in proximal M1, but this vessel fills nicely via the SVG anastamosed to the M1 and contains no significant narrowing distalto the distal anastomotic site. The terminal CX is small caliber, runs in AV groove and faintly fills a small distal marginal branch. The terminal CX is seen only via retrograde fill from the M1 via injection of the SVG to M1. Right coronary: The right coronary artery is a Dominant vessel with a 80% proximal stenosis. The vessel demonstrates competitive filling in the mid and distal vessel due to competitive filling. The SVGfills in a retrograde fashion via injection of the [place] RCA. There is no significant narrowing in the mid and distal RCA distal to the distal anastamotic site. SVGs 1) The SVG to mid LAD: a large graft with mild atherosclerotic change that is anatamosed to the mid LAD. There is no significant narrowing distal to the distal anastamotic site. 2) The SVG to Mid M1: This graft has mild atherosclerotic change, but nicely fills the large M1 which bifurcates over the posterolateral wall. There is no significant narrowing distal to the distal anastamotic site of the graft. 3) The SVG to mid RCA: Smooth ostial and proximal 50% narrowing. The mid segment of the graft is patulous without significant narrowing and CHARLES 3 flow. There is no significant narrowing in the mid anddistal dominant RCA distal to the distal anastamotic site. DISCUSSION: All [place] vessels are proximally occluded, but the SVGs remain patent. There is no lesion that warrants PCI. It may be that atrial flutter has contributed to his presentation . On basis ofdiabetes and hypertension, his CHADS2 score =2 and he likely warrants anticoagulation and consideration of either cardioversion or ablation at some point in future RECOMMENDATIONS: 1) Increase metoprolol xl to 100 daily. 2) Anticoagulation with either warfarin, dabigatrin or rivaroxaban. 3) Consideration of either Cardioversion or ablation. 4) Sleep apnea testing 5) Wt. Loss, exercise program, target LDL< 70 with statin. 6) Consider AMINTA or ARB in view of diabetes. Umair Alves MD FACCl documented in this encounter Consult Notes Umair Alves MD - 02/01/2012 5:13 PM CDT I have examined the patient, reviewed the history, medications and pre procedural tests. He underwent CABG 23 years ago and indicates he received both RAMIREZ and SVGs. He sustained a NSTEMI 4 years ago, but was told the vessels involved at that time were not large enough to warrant PCI. His admit ECG shows atrial flutter with a well controlled ventricular response rate. I will discuss TORREY vs BMS with in view of a possible regional clinical director need for anticoagulation. I have explained to the patient the risks of , [place], stroke, hematoma, possible urgent bypass surgery for failed PCI, use ofstents, thienopyridine agents, possible peripheral vascular complications, arrhythmia, and alternative of medical therapy alone associated with left heart catheterization, left ventriculography, coronary angiography, and possible percutaneous coronary intervention. The patient voiced understanding andwishes to proceed. The patient has a good left radial pulse, normal ulnar pulse and a normal Ilan'ssign. José Luevano MD - 02/01/2012 5:03 PM CDT CARDIOLOGY CONSULTATION REASON FOR CONSULTATION: Acute coronary syndrome. HISTORY OF PRESENT ILLNESS: Mr. Rahda Farooq is a very pleasant 71-year-old gentleman with known prior history of coronary artery disease who presented having been woken up at 6:00 a.m. with retrosternal chest discomfort. He says he thinks he may have noticed a little bit of tightness when he went to bed last night around 11:00 p.m., but thought it was related to the carbonation after having had abeer. At 6:00 a.m. when he was awakened, he took some baking soda and water but it did not help. He tried some sprays of nitroglycerin with no improvement. The nitroglycerin unfortunately was 4 years old, however. His prompted him to come into the emergency room where his pain was rated at 8/10 in intensity. EKGs from the ER were reviewed without evidence of ischemia or injury but with the comment on one EKG of atrial flutter. This was not seen on the EKGs that were available for me to review, and will be sought. Subsequent EKGs were apparently sinus. Cardiac enzymes demonstrated an initial troponin of 0.026 at 8:45 a.m., rising 2.047 at 10:10 a.m. and ultimately to 0.9 this afternoon. He wasstarted on a nitroglycerin drip with relief of his pain quite promptly. He states he has been in his usual state of health, which is quite good, since 4 years ago. He said he had a very similar presentation in [place], in [place], at the [facility], and underwent cardiac catheterization and was told that he had a small artery that was plugged off. He was also told that he had another little one that may block it in future with recurrent symptoms. He didnot undergo any sort of intervention. He otherwise has not had, however, any exertional or rest symptoms of chest discomfort or shortness of breath since that time. He has no lightheadedness, presyncope, syncope, PND, orthopnea, palpitations or swelling of the ankles. He does have risk factors of hyper tension and dyslipidemia. He denies diabetes though his blood sugar is elevated on presentation at 181. He denies tobacco abuse. He describes a family history of coronary disease in second-degree relatives at advanced ages. PAST MEDICAL HISTORY: 1. Mr. Farooq underwent coronary artery bypass grafting in 1985 with a 4-vessel bypass at [facility]. He has not had any further angiography since then. He has a preserved LVEF on echo. 2. Morbid obesity. 3. Dyslipidemia. 4. Hyperglycemia on a nonfasting blood sample. 5. Hypertension. OUTPATIENT MEDICATIONS: 1. Aspirin 81 a day. 2. Celebrex 200 twice daily. 3. Pravachol 80 a day. 4. Acyclovir as needed for cold sores. ALLERGIES: No known drug allergies. REVIEW OF SYSTEMS: As per admitting H&P of Dr. Gill dated today's date and included in the patient's online medical record. PHYSICAL EXAMINATION: VITAL SIGNS: Blood pressure is 110/71, heart rate 65 and regular. His weight is 145.1, height 1.8 meters. GENERAL: This is a well-appearing gentleman in no apparent distress. He is alert and oriented x 3. HEENT: EOMI, MARIUSZ. Mucous membranes are moist. No icterus or jaundice is noted. CHEST: clear to auscultation bilaterally without adventitious sounds CV: PMI nonpalpable. S1, S2 regular without clear murmur, rub or gallop. JVP cannot be well visualized. Carotids are normal in upstroke, volume and contour without appreciable bruits. ABDO: benign, nontender, nondistended. No bruits or masses. EXTR: no edema LABS: K+ 4.1; Cr 0.59; BUN 20; trop I 0.912; Hb 5.0; WBC 7.6; PLTS 149; CXR cardiomegaly with questionably increased vascularity ASSESSMENT AND PLAN: Pleasant 71-year-old gentleman with known coronary artery disease and recurrence of typical anginal chest discomfort of onset at rest this morning, perhaps with a warning last night on going to bed. His pain is relieved and he is currently pain-free. I would go ahead and continue him on heparin, nitrates, beta best, aspirin and statin as well as loading him on Plavix. He is scheduled for cardiac catheterization tomorrow. Hemoglobin A1c can be checked and further management will be deferred to his primary service. We have discussed the risks and benefits of cardiac catheterization including 1:1000 risk of or severe morbidity including stroke, renal failure, or need for emergent bypass amongst others. He has verbalized understanding and agrees to proceed. With respect to his arrhythmia, his CHADS risk score is 1 if diabetes is included. He staunchly denies a history of hypertension though it is described in the admitting history. His blood pressure was normal off antihypertensive medications, in support of his claim. He has no stroke history, he is 71 years old (<75) with preserved systolic function. There is not evidence of mitral stenosis on echocardiogram. Overall, my recommendation would be for consideration of coumadin anticoagulation but decision may be made in concert with the patient's findings at catheterization and the potential need for plavix. Further recommendations will be pending his course. It is a pleasure being involved in this pleasantgentleman's care. TOTAL TIME: 45 minutes, 40 in coordination of care and counseling. JOSÉ LUEVANO MD MT: #[id number] Name: RADHA FAROOQ Account: [id number] : 1940 Consult Date: 02/01/2012 Document: [id number] José Luevano MD - 02/01/2012 4:48 PM CDTAssociated Order(s): CARDIOLOGY IP CONSULT Patient seen and examined for ACS. No complaints of chest pain currentl;y. Mild elevation troponin. Benign ECG and echo. Discussed plans for cath tomorrow. Will load with Plavix today. Risks/benefits of cath including 1:1000 risk of , stroke, renal failure, need for emergent cardiac surgery and other significant morbidity described to patient who verbalized understanding and agrees to proceed. Of note, the patient is noted to be in asymptomatic atrial flutter with controlled ventricular response. Acuity is unknown but the indication for warfarin will likely exist long-term in the absence of symptoms. This has implications for the type of stent deployed, if necessary, given the increased risk of bleed associated with triple-therapy. Would recommend the use of bare-metal stent if technically feasible with acceptable anticipated outcomes (such as a larger-calibre vessel). However should a drug-eluting stent be preferred from a technical standpoint in light of culprit lesion characteristics, discussion of risk/benefits will be undertaken at the time. This will be addressed with the patient prior to being taken to the [facility] tomorrow morning. documented in this encounter ED Notes Amy Mackenzie - 02/01/2012 9:51 AM CDT ekg done on patient Stephen Liriano MD - 02/01/2012 8:49 AM CDT History Chief Complaint: Chest Pain HPI Radha Farooq is a 71 year old male with history of CAD who presents with chest pain. The patient states that around 6am this morning we awoke with left sided chest pain that has continued since that time. The patient states he gets acid reflux and usually takes baking soda and water but states he had no relief this morning. The patient then took a Nitro but again had no relief, prompting him here to the ED. He currently rates his pain as a 7-8/10 in severity and describes his pain as a constant heaviness in his chest. He states his pain does not worsen with exertion and is not pleuritic in nature. He also complains of slight difficulty breathing. He denies any back pain, abdominal pain or other a ssociated symptoms. Cardiac Risk Factors: The patient has a personal history of coronary artery disease. He has hypertension, hyperlipidemia and diabetes. He does not smoke or use illicit drugs. PE/DVT Risk Factors: The patient denies a personal and family history of PE, DVT, or other clotting disorders. He denies any recent travel, surgery, or other prolonged immobilization. He denies a personal history of cancer. He does not smoke. Allergies: No known allergies Medications: Pravastatin Aspirin 81mg Celebrex Acyclovir PRN Propanolol Protonix Flomax Nitroglycerine spray PRN Multivitamin Calcium Fish Oil Past Medical History: CAD Hyperlipidemia Herpes simplex Past Surgical History: Aortocoronary bypass, 2006 Family History: Father had heart disease. Marital Status: [2] Social History: Patient has never smoked. He drinks alcohol. His is at the bedside. Review of Systems Respiratory: Positive for slight difficulty breathing Cardiovascular: Positive for chest pain. Negative for pleuritic or exertional chest pain Gastrointestinal: Negative for abdominal pain. Musculoskeletal: Negative for back pain. All other systems reviewed and are negative. Physical Exam First Vitals: BP: 142/92 mmHg Heart Rate: 75 Temp: 97.1 ??F (36.2 ??C) Resp: 20 Height: 181.6 cm (5' 11.5) Weight: 133.811 kg (295 lb) SpO2: 95 % Physical Exam Constitutional: He is oriented to person, place, and time. HENT: Head: Normocephalic and atraumatic. Nose: Nose normal. Mouth/Throat: Mucous membranes are normal. Eyes: EOM are normal. Pupils are equal, round, and reactive to light. Cardiovascular: Normal rate, regular rhythm, S1 normal and S2 normal. Exam reveals no gallop and no friction rub. No murmur heard. Pulmonary/Chest: Effort normal and breath sounds normal. Abdominal: Soft. He exhibits no distension. No tenderness. Musculoskeletal: Normal range of motion. Neurological: He is alert and oriented to person, place, and time. He has normal strength. Skin: Skin is warm and dry. No rash noted. Emergency Department Course EC: Atrial flutter with variable AV block, nonspecific intraventricular conduction delay, T wave abnormality, consider inferior ischemia. Heart rate 86 bpm, QT/QTc 422/504 ms, R axes 7. Abnormal ECG. 0953 Repeat ECG: Sinus rhythm with premature supraventricular complexes, nonspecific intraventricular block, nonspecific T wave abnormality. Heart rate 78 bpm, MA Interval 178 ms, QT/QTc 378/430 ms, R Axes 3. Abnormal ECG. No change compared to EKG dated 02/01/2012 (noted above) Imaging: CXR 2 views: Cardiomegaly. Question mild central pulmonary vascular congestion. Per Radiology. Laboratory: CBC: WBC 6.1, HGB 15.8, HCT 47.0, PLT 161, o/w WNL BMP: Glucose 181 (High), Creatinine 0.59 (Low), o/w WNL Troponin: 0.026 (WNL) Repeat Troponin: 0.047 (High) Interventions: 0903 Nitrostat, 0.4 mg, PO 0909 Nitrostat, 0.4 mg, PO 0917 Nitrostat, 0.4 mg, PO 0853 Aspirin, 243 mg, PO 0926 Nitrodur, 0.4mg/hr, patch 1119 Lopressor, 25 mg, PO 1011 Nitroglycerin, 10ml/hr, IV drip Emergency Department Course: The patient is under continuous cardiac monitoring, pulse oximetry, and supplemental oxygen via a nasal canula here in the emergency department. 0849 After reviewing nursing notes and the patient's past medical history, I examined the patient here in the emergency department. I discussed with him the plan of care including laboratory workup, ECG and Xray imaging and he was in agreement with this plan. 1030 The patient is chest pain free again on the nitro drip. 1100 The patient remains chest pain free. [address] Gill regarding patient's condition and plan of care. [address] Sales regarding the patient. Recheck: I discussed with the patient admission to the hospital for further observation and he was in agreement. I also spoke with Dr. Dsouza who was in agreement with admission. The patient is admitted to the hospital for further observation and evaluation. Impression & Plan Medical Decision Making: This is a 71 year old male with history of coronary artery disease status post CABG who presents with unstable angina typical of symptoms leading to his most recent catheterization. Differential diagnosis is brought but given the character of the pain unstable angina was high on my list. The patient was immediately evaluated by myself and required multiple and serial reevaluations, cardiology consultation, and aggressive interventions including nitroglycerin and heparin drip. After initial resolution of pain, he required the aforementioned nitro drip. His initial troponin was negative, however it was done approximately three hours after the initial onset of his pain and will need to be followed up. On reevaluation the patient is normotensive and has resolution of pain. There are no signs or symptoms that suggest pulmonary embolism nor are there evidence on chest Xray of pneumothorax or aortic dissection. The patient will be admitted to ICU with plan for Nitroglycerin and heparin drip and possible catheterization for further evaluation and potential occlusive disease. The patient does have elevated glucose consistent with uncontrolled diabetes. There is no evidence of acute acidosis. He appears asymptomatic from this. He will require close glucose monitoring as an inpatient. Diagnosis: 1. Unstable angina 2. Elevated troponin 3. Coronary artery disease 4. Uncontrolled diabetes Disposition: Admit to ICU Critical care time: independent of procedures, was 65 minutes. I, Mitra Flower, am serving as a scribe on February 01, 2012 at 8:49 AM to personally document servicesperformed by Dr. Liriano based on my observations and the provider's statements to me. Stephen Liriano MD 02/01/12 1202 Ana Cage RN - 02/01/2012 8:46 AM CDT Patient awoke this AM at 0600 with left sided chest pain. He got no relief after TWO sprays of NTG. Pain was accompanied by slight nausea. He believed that this may be reflux and tried to drink baking soda and water also with no relief. Patient also reports taking ONE baby aspirin this am Medications: Pravastatin Aspirin 81mg Celebrex Acyclovir PRN Propanolol Protonix Flomax Nitroglycerine spray PRN Multivitamin Calcium Fish Oil documented in this encounter Miscellaneous Notes Plan of Care - Sariah Torres RN - 02/04/2012 3:43 PM CDT Problem: IP GENERAL POC-ADULT,OB,BEHAVIORAL FVCPM Goal: Individualization/Patient-Specific Goal (Adult,OB,Behavioral The patient and/or their loan representative will achieve their patient-specific goals related to the plan of care. The patient-specific goals include: RN: reviewed discharge and medication listing with patient and . Provided Lovenox teaching, warfarin teaching, and provided educational materials regarding Lisinopril, metoprolol, lovenox, and warfarin. Patients prescriptions were faxed to [facility]. Patient awaiting staff to bring to car by wheel chair for transport home by /POV at 1541 hours. Denies dizziness, SOB, or pain. Pt ambulated hallways several times with hospital staff/tolerated well with no SOB, dizziness, pain. Plan of Care - Kimberly Nur RN - 02/04/2012 5:42 AM CDT Problem: IP GENERAL POC-ADULT,OB,BEHAVIORAL FVCPM Goal: Individualization/Patient-Specific Goal (Adult,OB,Behavioral The patient and/or their loan representative will achieve their patient-specific goals related to the plan of care. The patient-specific goals include: Outcome: Improving Pt rested well throughout night. VSS. No c/o CP/discomfort. Tele Aflutter with CVR, but looks like SR at times. Angio done and 01/31. Sheath site on L arm with dressing that is CDI. Cardio following. Plan for possible ablation at [facility]. Will continue to monitor. Plan of Care - Sulema Sexton RN - 02/03/2012 10:53 PM CDT Problem: IP GENERAL POC-ADULT,OB,BEHAVIORAL FVCPM Goal: Individualization/Patient-Specific Goal (Adult,OB,Behavioral The patient and/or their loan representative will achieve their patient-specific goals related to the plan of care. The patient-specific goals include: Outcome: No Change Denies pain,spo2 on Ra was 88-89 % started on oxygen 2l nc spo2 was 96 %. Telemetry a fluter. Plan of Care - Mary Jasso RN - 02/03/2012 3:08 PM CDT Transferred to tele. Plan of Care - Essie Cleary - 02/03/2012 3:00 PM CDT Problem: General Rehab Plan of Care Goal: Occupational Therapy Goals The patient and/or their loan representative will achieve their patient-specific goals related to the plan of care. The patient-specific goals include: By 02/03/12 pt will... 1. Ambulate for 5-6 min. safely in [place] without angina. May need assistive device. (GOAL MET 02/03/12) 2. participate in appropriate education (See Adult Education Outcome Record) (GOAL MET 02/03/12) Frequency: 1x eval and treat Outcome: Completed Date Met: 02/03/12 OT: Evaluation and treatment completed. Recommend home with assist at dc. Educated pt on the importance of activity and scheduling cardiac rehab. Pt lives in [place] so stated he didn't want to have to come up 3x/week. Offered option for pt to come 1x/week and then continue on own at home and pt seemed open to this. Pt able to tolerate 5 min continuous walking in hallway with no c/o chest pain and BP and HR stable. All cardiac OT goals met. No further skilled cardiac OT needs identified. DC from OT. Occupational Therapy Discharge Summary Reason for discharge: All goals and outcomes met, no futher needs identified Progress towards goals: Goals met Recommendation(s): Continued therapy is recommended. Rationale/Recommendations: outpatient cardiac rehab recommended tomonitor progression of activity and encourage increased physical activity to decrease risk of another [place].. DC from cardiac OT Plan of Care - Sharla Veloz RN - 02/03/2012 2:46 PM CDT Problem: IP GENERAL POC-ADULT,OB,BEHAVIORAL FVCPM Goal: Individualization/Patient-Specific Goal (Adult,OB,Behavioral The patient and/or their loan representative will achieve their patient-specific goals related to the plan of care. The patient-specific goals include: Outcome: No Change Bp elevated this afternoon, 150-180/100-113. Tele was sr until 1015 when pt went into aflutter/fib. Pt denies pain, sob, chest pain. Cms intact in ue's. Pt denies numbness/tingling. Pt up to br multiples without problems. Pt transferred to [facility] tele. Plan of Care - Sharla Veloz RN - 02/03/2012 2:16 PM CDT Report called to [facility]it[facility] [place] Provider Notification - Sharla Veloz RN - 02/03/2012 1:[address] Richard paged with new bp of 183/113. Orders received for lisinopril 5mg po bid. Pt to start now and receive a second dose tonight. Plan of Care - Daly Norwood RN - 02/02/2012 5:49 AM CDT Problem: Acute Coronary Syndrome (Adult) Goal: Prevent/Manage Potential Problems Signs and symptoms of listed problems will be absent or manageable. Pt. Continues on heparin gtt and nitro gtt. Chest pain minimum. Pts. Trops. Continue to increase today. Pt. Scheduled for angio this AM. BP stable. Denies SOB. Continue to monitor. Plan of Care - Aravind Mahan RN - 02/01/2012 11:41 PM CDT Problem: IP GENERAL POC-ADULT,OB,BEHAVIORAL FVCPM Goal: Individualization/Patient-Specific Goal (Adult,OB,Behavioral The patient and/or their loan representative will achieve their patient-specific goals related to the plan of care. The patient-specific goals include: Outcome: No Change Remains pain free - rare pvc note - had 4 beat run. Cardiology here early in shift and discussed plan of care with pt - received old records as ordered from prior hospitalization with cardiac issues. Pharmacy-Admission Medication History - Elma Linder RPH - 02/01/2012 11:57 AM CDT Medication reconciliation complete documented in this encounter Plan of Treatment Upcoming Encounters Date Type Specialty Care Team Description 06/26/2022 Ancillary Procedure Cardiology Seng Canchola MD [address] [place] [id number] (Wo rk) 08/16/2022 Ancillary Procedure Cardiology Timothy Smith MD [address] [place] [id number] (Wo rk) 08/16/2022 Office Visit Cardiology Timothy Smith MD [address] [place] [id number] (Wo rk) Pending Results Name Type Priority Associated Diagnoses Date/Ti me Echo complete with Imaging Routine 2 3:23 PM CDT definity Scheduled Orders Name Type Priority Associated Diagnoses Order S chedule X-ray Chest 1 vw port Imaging Routine Enter condition for (CP) order release i n comments for 1 Occurrences sta rting 02/01/2012 EKG 12-lead, tracing EKG Routine Enter c ondition for only order release i n comments for 1 Occurrences sta rting 02/01/2012 Inpatient Coronary Imaging Routine One Time for 1 Angiography Adult Order Occu rrences starting 02/02/2012 unti l 02/02/2012 documented as of this encounter Procedures Procedure Name Priority Date/Time Associated Comments Diagnosis PFT GENERAL LAB 02/12/2012 12:32 Results for this TESTING PM CDT procedure are i n the results section. GLUCOSE BY METER Routine 02/04/2012 11:34 Results for this AM CDT procedure are i n the results section. GLUCOSE BY METER Routine 02/04/2012 7:25 AM Resul ts for this CDT procedure are i n the results section. INR Routine 02/04/2012 6:18 AM Results f or this CDT procedure are i n the results section. BASIC METABOLIC PANEL Routine 02/04/2012 6:18 AM Results for this CDT procedure are i n the results section. CBC WITH PLATELETS Routine 02/04/2012 6:18 AM Res ults for this CDT procedure are i n the results section. GLUCOSE BY METER Routine 02/03/2012 8:41 PM Resul ts for this CDT procedure are i n the results section. MRSA MSSA PCR, NASAL Routine 02/03/2012 8:25 PM R esults for this SWAB CDT procedure are i n the results section. GLUCOSE BY METER Routine 02/03/2012 6:08 PM Resul ts for this CDT procedure are i n the results section. GLUCOSE BY METER Routine 02/03/2012 12:18 Results for this PM CDT procedure are i n the results section. GLUCOSE BY METER Routine 02/03/2012 7:51 AM Resul ts for this CDT procedure are i n the results section. EKG 12-LEAD, TRACING STAT 02/03/2012 5:59 AM R esults for this ONLY CDT procedure are i n the results section. EKG 12-LEAD, TRACING Routine 02/03/2012 5:59 AM R esults for this ONLY CDT procedure are i n the results section. INR Routine 02/03/2012 5:50 AM Results f or this CDT procedure are i n the results section. PLATELET COUNT Timed 02/03/2012 5:50 AM Results for this CDT procedure are i n the results section. HIM ECG SCAN Routine 02/03/2012 GLUCOSE BY METER Routine 02/02/2012 9:00 PM Resul ts for this CDT procedure are i n the results section. GLUCOSE BY METER Routine 02/02/2012 5:39 PM Resul ts for this CDT procedure are i n the results section. INR STAT 02/02/2012 4:30 PM Results f or this CDT procedure are i n the results section. HEART CATH LEFT HEART Routine 02/02/2012 3:32 PM Results for this CATH CDT procedure are i n the results section. HIM IMAGING SCAN Routine 02/02/2012 2:49 PM CDT GLUCOSE BY METER Routine 02/02/2012 11:36 Results for this AM CDT procedure are i n the results section. GLUCOSE BY METER Routine 02/02/2012 7:32 AM Resul ts for this CDT procedure are i n the results section. TSH Routine 02/02/2012 5:26 AM Results f or this CDT procedure are i n the results section. TROPONIN I Timed 02/02/2012 5:26 AM Results f or this CDT procedure are i n the results section. HEMOGLOBIN A1C Routine 02/02/2012 5:26 AM Results for this CDT procedure are i n the results section. HEPARIN 10A LEVEL Routine 02/02/2012 5:26 AM Resu lts for this CDT procedure are i n the results section. BASIC METABOLIC PANEL Routine 02/02/2012 5:26 AM Results for this CDT procedure are i n the results section. HIM OTHER SCAN Routine 02/02/2012 TROPONIN I Timed 02/01/2012 11:59 Results for this PM CDT procedure are i n the results section. GLUCOSE BY METER Routine 02/01/2012 9:15 PM Resul ts for this CDT procedure are i n the results section. HEPARIN 10A LEVEL Timed 02/01/2012 7:40 PM Resu lts for this CDT procedure are i n the results section. TROPONIN I Timed 02/01/2012 6:30 PM Results f or this CDT procedure are i n the results section. HEPARIN 10A LEVEL Timed 02/01/2012 6:30 PM Resu lts for this CDT procedure are i n the results section. GLUCOSE BY METER Routine 02/01/2012 5:02 PM Resul ts for this CDT procedure are i n the results section. ECHO COMPLETE WITH Routine 02/01/2012 3:23 PM DEFINITY CDT TROPONIN I Timed 02/01/2012 3:18 PM Results f or this CDT procedure are i n the results section. HEMOGLOBIN A1C Routine 02/01/2012 3:18 PM Results for this CDT procedure are i n the results section. CBC WITH PLATELETS STAT 02/01/2012 3:18 PM Res ults for this CDT procedure are i n the results section. ECHO COMPLETE WITH Routine 02/01/2012 2:52 PM Res ults for this DEFINITY CDT procedure are i n the results section. TROPONIN I Timed 02/01/2012 10:10 Results for this AM CDT procedure are i n the results section. EKG 12-LEAD, TRACING STAT 02/01/2012 9:51 AM R esults for this ONLY CDT procedure are i n the results section. XR CHEST 2 VIEWS STAT 02/01/2012 9:44 AM Resul ts for this CDT procedure are i n the results section. EKG 12-LEAD, TRACING STAT 02/01/2012 8:45 AM R esults for this ONLY CDT procedure are i n the results section. CBC WITH PLATELETS & STAT 02/01/2012 8:45 AM R esults for this DIFFERENTIAL CDT procedure are i n the results section. TROPONIN I STAT 02/01/2012 8:45 AM Results f or this CDT procedure are i n the results section. BASIC METABOLIC PANEL STAT 02/01/2012 8:45 AM Results for this CDT procedure are i n the results section. HIM ECG SCAN Routine 02/01/2012 HIM ECG SCAN Routine 02/01/2012 documented in this encounter Results PULMONARY FUNCTION TEST (02/12/2012 12:32 PM CDT) Transcriptions Julianna Vazquez MD - 02/05/2012 3:22 PM CDT Interpretation of Nocturnal Recording Ox imetry for study night of: 02/02/2012. Study running from 2329 to 4354. (See attached graphics in paper chart) This study was: 1. 2 liters of oxygen by nasal cannula 2. Abnormal study Findings include: 1. Bradycardia 2. Tachycardia 3. Multiple desaturations below 90% 4. Repetitive and suggestive of Sleep D isordered Breathing 5. Asleep sats documented: 92% Suggested follow up: 1. Clinical correlation 2. Schedule Outpatient Sleep Consultatio n Other: Abnormal study with REM pattern-l karlo episodic desaturations despite O2, to a anderson of 81%; 2% of recording <89% saturation. Mean pulse 80 beats per minute with rate 28-119 bpm or yoselin-tachycardia in response to desaturations. JULIANNA VAZQUEZ MD MT: Name: RADHA FAROOQ Account: [id number] : 1940 Procedure Date: 02/02/20 Document: [id number] Julianna Vazquez MD PFT ORDERABLES (ABNORMAL) Glucose by meter (02/04/2012 11:34 AM CDT) P athologist Signature Glucose 130 (H) 60 - 99 POINT OF CARE mg/dL TEST, GLUCOSE Specimen Anatomical Collection Method Collection Time Receive d Time (Source) Location / / Volume Laterality 02/04/2012 11:34 02/04/2012 AM CDT 11:50 AM CDT Jayy LAGUNAS - BEJOHN PAUL POCT Performing Organization Address City/State/ZIP Code Phon e Number FV POINT OF CARE TEST, GLUCOSE POINT OF CARE TEST, GLUCOSE (ABNORMAL) Glucose by meter (02/04/2012 7:25 AM CDT) athologist Signature Glucose 138 (H) 60 - 99 POINT OF CARE mg/dL TEST, GLUCOSE Comment: RN/Dr notified Specimen Anatomical Collection Method Collection Time Receive d Time (Source) Location / / Volume Laterality 02/04/2012 7:25 AM 2 7:50 CDT AM CDT Jayy NICKERSON POCT Performing Organization Address City/[facility]/ZIP Code Phon e Number FV POINT OF CARE TEST, GLUCOSE POINT OF CARE TEST, GLUCOSE (ABNORMAL) INR (02/04/2012 6:18 AM CDT) athologist Signature INR 1.15 (H) 0.86 - 1.14 [facility] Specimen Anatomical Collection Method Collection Time Receive d Time (Source) Location / / Volume Laterality Blood specimen 02/04/2012 6:18 AM 012 6:31 (specimen) CDT AM CDT Jayy Gill MD LAB - BLOOD ORDERABLES Performing Organization Address City/[facility]/ZIP [facility] Phon e Number [facility] [address] [place] [address] [facility] CBC (AM Draw) (02/04/2012 6:18 AM CDT) athologist Signature WBC 7.7 4.0 - 11.0 [place] 10e9/L [facility] RBC Count 4.90 4.4 - 5.9 [place] 10e12/L [facility] Hemoglobin 15.7 13.3 - [facility] 17.7 g/dL [facility] Hematocrit 47.1 40.0 - [place] 53.0 % [facility] MCV 96 78 - 100 [place] fl [facility] MCH 32.0 26.5 - [facility] 33.0 pg [facility] MCHC 33.3 31.5 - [place] 36.5 g/dL [facility] RDW 14.1 10.0 - [place] 15.0 % [facility] Platelet Count 152 150 - 450 [place] 10e9/L [facility] Specimen Anatomical Collection Method Collection Time Receive d Time (Source) Location / / Volume Laterality Blood specimen 02/04/2012 6:18 AM 012 6:31 (specimen) CDT AM CDT Jayy Gill MD LAB - BLOOD ORDERABLES Performing Organization Address City/State/ZIP Code Phon e Number [facility] [address] [place], [place] [address] [facility] (ABNORMAL) Basic metabolic panel (02/04/2012 6:18 AM CDT) athologist Signature Sodium 142 133 - 144 [place] mmol/L [facility] Potassium 4.1 3.4 - 5.3 [place] mmol/L [facility] Chloride 101 94 - 109 [place] mmol/L [facility] Carbon Dioxide 30 20 - 32 [place] mmol/L [facility] Anion Gap 11 6 - 17 [place] mmol/L [facility] Glucose 119 (H) 60 - 99 [place] mg/dL [facility] Urea Nitrogen 14 7 - 30 [place] mg/dL [facility] Creatinine 0.68 0.66 - [facility] 1.25 mg/dL [facility] GFR Estimate >90 >60 [place] mL/min/1.[address] LAB GFR Estimate If >90 >60 [place] Black mL/min/1.[address] LAB Calcium 8.8 8.5 - 10.4 [place] mg/dL [facility] Specimen Anatomical Collection Method Collection Time Receive d Time (Source) Location / / Volume Laterality Blood specimen 02/04/2012 6:18 AM 012 6:31 (specimen) CDT AM CDT Jayy Gill MD LAB - BLOOD ORDERABLES Performing Organization Address City/State/ZIP Code Phon e Number [facility] [address] [place], [place] [address] [facility] (ABNORMAL) Glucose by meter (02/03/2012 8:41 PM CDT) P athologist Signature Glucose 146 (H) 60 - 99 POINT OF CARE mg/dL TEST, GLUCOSE Specimen Anatomical Collection Method Collection Time Receive d Time (Source) Location / / Volume Laterality 02/03/2012 8:41 PM 2 8:50 CDT PM CDT Jayy Gill MD LAB - BEAKER POCT Performing Organization Address [facility]/ZIP [facility] Phon e Number FV POINT OF CARE TEST, GLUCOSE POINT OF CARE TEST, GLUCOSE Methicillin Resistant Staph Aureus PCR (02/03/2012 8:25 PM CDT) Component Value Ref Test Analysis Performed At [facility] gist Range Method Time Signature Specimen Nares [facility] Methicillin MRSA Negative: SA Negative ? ?MRSA and Staphylococcus aureus target DNA not [facility] Resist/Sens S. detected, presumed negative for MRSA and SA colonization or the number of MICROBIOLOGY aureus PCR bacteria present may be bel ow the limit of detection for the assay. FDA approved assay performed using [employer] GeneXpert(R) real-ti me PCR. Specimen (Source) Anatomical Collection Method Collection Time Re ceived Time Location / / Volume Laterality Nasal structure 02/03/2012 8:25 2 9:02 (body structure) PM CDT PM CDT Jeffrey Stallworth MD LAB - MICRO GENERAL ORDERABL ES Performing Organization Address City/State/ZIP Code Phon e Number [facility] [address] [place] [address] [facility] MICROBIOLOGY (ABNORMAL) Glucose by meter (02/03/2012 6:08 PM CDT) P athologist Signature Glucose 163 (H) 60 - 99 POINT OF CARE mg/dL TEST, GLUCOSE Specimen Anatomical Collection Method Collection Time Receive d Time (Source) Location / / Volume Laterality 02/03/2012 6:08 PM 2 6:25 CDT PM CDT Jayy LAGUANS - LIYA POCT Performing Organization Address [facility] Phon e Number FV POINT OF CARE TEST, GLUCOSE POINT OF CARE TEST, GLUCOSE (ABNORMAL) Glucose by meter (02/03/2012 12:18 PM CDT) P athologist Signature Glucose 118 (H) 60 - 99 POINT OF CARE mg/dL TEST, GLUCOSE Specimen Anatomical Collection Method Collection Time Receive d Time (Source) Location / / Volume Laterality 02/03/2012 12:18 02/03/2012 PM CDT 12:35 PM CDT Jayy LAGUNAS - LIYA POCT Performing Organization Address [facility] Phon e Number FV POINT OF CARE TEST, GLUCOSE POINT OF CARE TEST, GLUCOSE (ABNORMAL) Glucose by meter (02/03/2012 7:51 AM CDT) P athologist Signature Glucose 167 (H) 60 - 99 POINT OF CARE mg/dL TEST, GLUCOSE Specimen Anatomical Collection Method Collection Time Receive d Time (Source) Location / / Volume Laterality 02/03/2012 7:51 AM 2 8:05 CDT AM CDT Jayy LAGUNAS - LIYA POCT Performing Organization Address [facility] Phon e Number FV POINT OF CARE TEST, GLUCOSE POINT OF CARE TEST, GLUCOSE EKG 12-lead, tracing only (02/03/2012 5:59 AM CDT) Component Value Ref Range Test Analysis Performed Pathologis t Method Time At Signature Ventricular Rate 76 BPM RADIOLOGY RESULTS Atrial Rate 76 BPM RADIOLOGY RESULTS MA Interval 168 ms RADIOLOGY RESULTS QRS Duration 106 ms RADIOLOGY RESULTS QT 368 ms RADIOLOGY RESULTS QTc 414 ms RADIOLOGY RESULTS P [place] 69 degrees RADIOLOGY RESULTS R AXIS 1 degrees RADIOLOGY RESULTS T [place] 117 degrees RADIOLOGY RESULTS Interpretation Sinus rhythm RADIOLOGY ECG RESULTS Interpretation Incomplete left RADIOLOGY ECG bundle branch RESULTS block Interpretation Nonspecific T wave RADIOL OGY ECG abnormality RESULTS Interpretation Abnormal ECG RADIOLOGY ECG RESULTS Interpretation When compared with RADIOL OGY ECG ECG of 03-FEB-2012 RESULTS 05:59, (unconfirmed) Interpretation Fusion complexes RADIOLOG Y ECG are no longer RESULTS Present Interpretation Premature RADIOLOGY ECG ventricular RESULTS complexes are no longer Present Interpretation Premature RADIOLOGY ECG supraventricular RESULTS complexes are no longer Present Interpretation Unconfirmed report - interpr etation of this ECG is computer generated - see RADIOLOGY ECG medical record for final interpretation RESULTS Specimen (Source) Anatomical Collection Method Collection Time Re ceived Time Location / / Volume Laterality 02/03/2012 5:59 AM CDT Stephen Liriano MD ECG ORDERABLES Performing Organization Address City/State/ZIP Code Phon e Number RADIOLOGY RESULTS EKG 12-lead, tracing only (02/03/2012 5:59 AM CDT) Component Value Ref Range Test Analysis Performed Pathologis t Method Time At Signature Ventricular Rate 78 BPM RADIOLOGY RESULTS Atrial Rate 78 BPM RADIOLOGY RESULTS MA Interval 168 ms RADIOLOGY RESULTS QRS Duration 100 ms RADIOLOGY RESULTS QT 364 ms RADIOLOGY RESULTS QTc 414 ms RADIOLOGY RESULTS P [place] 75 degrees RADIOLOGY RESULTS R AXIS 3 degrees RADIOLOGY RESULTS T [place] 126 degrees RADIOLOGY RESULTS Interpretation Sinus rhythm with RADIOLO GY ECG Premature RESULTS supraventricular complexes and Interpretation Premature RADIOLOGY ECG ventricular RESULTS complexes or Fusion complexes Interpretation Nonspecific ST and RADIOL OGY ECG T wave abnormality RESULTS Interpretation Abnormal ECG RADIOLOGY ECG RESULTS Interpretation When compared with RADIOL OGY ECG ECG of 01-FEB-2012 RESULTS 09:51, Interpretation Fusion complexes RADIOLOG Y ECG are now Present RESULTS Interpretation Premature RADIOLOGY ECG ventricular RESULTS complexes are now Present Interpretation ST now depressed RADIOLOG Y ECG in Inferior leads RESULTS Interpretation ST now depressed RADIOLOG Y ECG in Anterolateral RESULTS leads Interpretation T wave inversion RADIOLOG Y ECG no longer evident RESULTS in Inferior leads Interpretation Unconfirmed report - interpr etation of this ECG is computer generated - see RADIOLOGY ECG medical record for final interpretation RESULTS Specimen (Source) Anatomical Collection Method Collection Time Re ceived Time Location / / Volume Laterality 02/03/2012 5:59 AM CDT Jayy Gill MD ECG ORDERABLES Performing Organization Address City/State/ZIP Code Phon e Number RADIOLOGY RESULTS (ABNORMAL) Platelet count (02/03/2012 5:50 AM CDT) P athologist Signature Platelet Count 140 (L) 150 - 450 [place] 10e9/L [facility] Specimen Anatomical Collection Method Collection Time Receive d Time (Source) Location / / Volume Laterality Blood specimen 02/03/2012 5:50 AM 012 5:58 (specimen) CDT AM CDT Sabino Lujan [facility] - BLOOD ORDERABLES Performing Organization Address City/[facility]/ZIP [facility] Phon e Number [facility] [address] [place], [place] [address] [facility] INR (02/03/2012 5:50 AM CDT) P athologist Signature INR 1.09 0.86 - 1.14 [facility] Specimen Anatomical Collection Method Collection Time Receive d Time (Source) Location / / Volume Laterality Blood specimen 02/03/2012 5:50 AM 012 5:58 (specimen) CDT AM CDT José Luevano MD LAB - BLOOD ORDERABLES Performing Organization Address [facility] Phon e Number [facility] [address] [place], [place] [address] [facility] ECG - HIM ECG Scan (02/03/2012) Narrative This result has an attachment that is no t available. Jayy Gill MD ECG ORDERABLES Glucose by meter (02/02/2012 9:00 PM CDT) P athologist Signature Glucose 97 60 - 99 POINT OF CARE mg/dL TEST, GLUCOSE Specimen Anatomical Collection Method Collection Time Receive d Time (Source) Location / / Volume Laterality 02/02/2012 9:00 PM 2 9:10 CDT PM CDT Jayy Gill MD LAB - BEAKER POCT Performing Organization Address City/[facility]/ZIP Code Phon e Number FV POINT OF CARE TEST, GLUCOSE POINT OF CARE TEST, GLUCOSE (ABNORMAL) Glucose by meter (02/02/2012 5:39 PM CDT) P athologist Signature Glucose 138 (H) 60 - 99 POINT OF CARE mg/dL TEST, GLUCOSE Specimen Anatomical Collection Method Collection Time Receive d Time (Source) Location / / Volume Laterality 02/02/2012 5:39 PM 2 5:45 CDT PM CDT Jayy LAGUNAS - BEAKER POCT Performing Organization Address [facility]/ZIP Code Phon e Number FV POINT OF CARE TEST, GLUCOSE POINT OF CARE TEST, GLUCOSE INR (02/02/2012 4:30 PM CDT) P athologist Signature INR 1.05 0.86 - 1.14 [facility] Specimen Anatomical Collection Method Collection Time Receive d Time (Source) Location / / Volume Laterality Blood specimen 02/02/2012 4:30 PM 012 4:43 (specimen) CDT PM CDT Sabino Lujan [facility] - BLOOD ORDERABLES Performing Organization Address City/State/ZIP Code Phon e Number [facility] [address] [place], [place] [address] [facility] Heart Cath Left heart cath (02/02/2012 3:32 PM CDT) Anatomical Region Laterality Modality Other Specimen (Source) Anatomical Collection Method Collection Time Re ceived Time Location / / Volume Laterality 02/02/2012 3:32 PM CDT Impressions 02/03/2012 10:17 AM CDT RADHA FAROOQ PROCEDURES PERFORMED: 1. ??Left internal mammary angiogram. 2. ??Saphenous venous bypass graft angio graphy. 3. ??[place] coronary angiography. 4. ??Left heart catheterization. 5. ??Left ventriculogram. APPROACH: ??Left radial artery. COMPLICATIONS: ??None noted. INDICATION FOR THIS PROCEDURE: ??Mr. Edward agrawal is a 71-year-old man with a known history of coronary disease, statu s post bypass surgery about 23 years ago. ??Details regarding his pr evious bypass are unavailable. ?? He did undergo an angiogram 4 years ago, but no intervention was performed. ??The patient presented here with prolonged chest heaviness and tightness. ??His EKG shows atrial fl utter of uncertain duration. ?? His ventricular response rates have julio cesar ined between the 80s and low 90s. ??The patient's troponin peaked at 5.03. ??Diagnostic angiography with possible intervention was recommend ed by Dr. Luevano. ??We have explained the risks of , myoca rdial infarction, stroke, hematoma, bleeding, infection, embolus, arrhythmias, use of stents, restenosis, the option of medical therap y alone, risk of peripheral vascular complications, possible urgent bypass surgery for failed PCI. ??The patient voiced understanding and wished to proceed. ??A radial approach has been requested in vi ew of the patient's obesity. ?? He has a good left radial and ulnar puls e with a normal Ilan's sign. PROCEDURES: 1. ??Left internal mammary angiography. ??The left radial region was prepped and draped in standard fashion a nd infiltrated with 1% lidocaine. ??The left radial artery was entered percutaneously with a Cook needle, and with Seldinger techniqu e, a 6 Kosovan sheath placed in the left radial artery. ??We gave 2.5 mg of verapamil and 400 mcg nitroglycerin intra-arterially. ??The jose francisco lawrence had just been on a heparin drip, and we did not give him an y additional heparin as it had been stopped on admission here to e lab. ??We advanced a 4 Kosovan left internal mammary catheter an d seated it in the ostium of the left internal mammary artery. ??A si ngle view was taken of this vessel. ??It was clear that the RAMIREZ art jigna did not anastomose to the heart, and there was no evidence of an a rterial bypass being done. 2. ??Saphenous venous bypass graft angio graphy. ??We next advanced a 5 Fr Manas catheter and seated this cathet er in the ostium of the saphenous venous bypass graft to the LAD . ??Bypass graft angiography was performed in orthogonal views. ??The catheter was then seated in the ostium of the saphenous venous bypas s graft to the circumflex. ?? Bypass graft angiography was performed i n orthogonal views. ??Later on in the case, we did cannulate the saphen ous venous bypass graft to the right coronary artery with a 6 Frenc h right bypass graft catheter. ??Bypass graft angiography was performed in orthogonal views. 3. ??[place] coronary angiogram. ??We use d a 5 Kosovan Manas catheter to cannulate the ostium of the right fung ry artery. ??Right coronary angiography was performed in orthogonal views. ??We later exchanged for first a JL4 4 Kosovan and then finall y a JL4 6 Kosovan catheter which allowed us to seat in the ostium o f the left main. ??We noted the left main was distally occluded and took 2 views. 4. ??Left heart catheterization. ??We ex changed for a pigtail catheter. ?? This catheter was advanced across the ao rtic valve. ??We noted no gradient. ??We measured pre left ventric ulogram pressures. 5. ??Left ventriculogram. ??We next perf ormed a left ventriculogram, injecting contrast in the 30-degree BANUELOS view. ??We measured pressures in the ventricle. ??We pulled the cathet er across the aortic valve. ?? We noted no gradient. I stopped the procedure at this point an d reviewed the patient's films. ??I did not see any lesion that w arranted mechanical intervention at this time. ??The cathete r was removed from the wrist. ?? The sheath was removed from the wrist wi th a TR band placed with good hemostasis. ??The patient was sent back to the [facility] for observation. ?? No complications were observed. FINDINGS: Hemodynamics: ??LVEDP is 20. Angiography: Left ventriculogram: ??The ejection frac tion appears to be normal and slightly hyperdynamic. ??There is no kodi ral insufficiency. ??LV chamber size is slightly increased. Left internal mammary artery: ??This art jigna is widely patent but is not anastomosed to the heart. Bypass grafts: 1. ??The saphenous venous bypass graft t o the LAD: ??This graft is widely patent and anastomosed to the mid LAD. ??It fills the mid and distal vessel and in a retrograde fashio n the proximal vessel. ??There is filling of both septal pyrometer mechanic bra nches and a small to moderate-sized first diagonal branch see n with injection of the bypass graft. ??There is a subtotal narr owing present at the origin of this small to moderate-sized diagonal br anch which does fill via ipsicollaterals from the left coronary. 2. ??The saphenous venous bypass graft t o the large first obtuse marginal branch: ??This graft is widely patent with mild atheromatous change but no significant narrowing. ??I t fills a large first marginal branch which bifurcates over the postero lateral wall. ??The terminal circumflex is seen to run in the AV groo ve and appears to be small caliber. ??It fills in a retrograde fash ion by injection of the bypass graft. 3. ??The saphenous venous bypass graft t o the mid right coronary: ?? This graft has an ostial moderate smooth 50% narrowing. ??The mid segment of the graft is very patulous. ? ?The graft nicely fills the terminal right coronary, and there is no significant narrowing distal to the distal anastomotic site. [place] coronary arteries: 1. ??The [place] left main: ??This vessel of occluded in its distal portion before the takeoff of the circum flex and the LAD. 2. ??Circumflex: ??This vessel is seen o nly via injection of the saphenous venous bypass graft that anast omosed to the first marginal branch. ??The vessel is proximally occlu ded. ??The portion of the circumflex seen with injection of the by pass graft runs in the AV groove, is small caliber, and fills a ve ry small terminal marginal branch system. ?? 3. ??[place] right coronary artery: ??Thi s is a dominant vessel. ??It has a proximal 85-90% narrowing. ??There is competitive filling seen in the mid and distal right coronary with i njection of the [place] right coronary artery from the patent bypass g raft. ??The right coronary distal to the distal anastomotic site of the bypass graft has no significant narrowing. ASSESSMENT: ??All of Mr. Farooq's [place] coronary arteries are proximally occluded or severely narrowed , however, there are patent bypass grafts serving the distal vessels ??There does not appear to be any vessel that would warrant mechanical intervention. The patient has atrial flutter of uncert ain duration. ??Given his diabetes and hypertension, his CHADS sco re would be at least 2, and I would favor anticoagulation with either warfarin or dabigatran. ??The patient may also benefit from better con trol of his ventricular response rate, and consideration might b e given to cardioversion at some point since the duration of his dys rhythmia is unknown. RECOMMENDATIONS: 1. ??No indication for percutaneous inte rvention. 2. ??Continue low dose aspirin and stati n therapy. 3. ??Increase metoprolol to 100 mg daily . 4. ??Weight loss. 5. ??Consider sleep apnea studies. 6. ??Warfarin anticoagulation to maintai n therapeutic INR. 7. ??Consider eventual cardioversion. Total contrast used was 200 mL Optiray 3 50. ??Total fluoroscopy time was 17.1 minutes. José Luevano MD CV CARDIAC CATH ORDERABLES Cardiac Angiogram - HIM Imaging Scan (02/02/2012 2:49 PM CDT) Anatomical Region Laterality Modality Other Narrative This result has an attachment that is no t available. Umair Alves MD IMG DIAGNOSTIC IMAGING ORDER ANN (ABNORMAL) Glucose by meter (02/02/2012 11:36 AM CDT) P athologist Signature Glucose 126 (H) 60 - 99 POINT OF CARE mg/dL TEST, GLUCOSE Specimen Anatomical Collection Method Collection Time Receive d Time (Source) Location / / Volume Laterality 02/02/2012 11:36 02/02/2012 AM CDT 11:50 AM CDT Jayy LAGUNAS - BEJOHN PAUL POCT Performing Organization Address [facility] Phon e Number FV POINT OF CARE TEST, GLUCOSE POINT OF CARE TEST, GLUCOSE (ABNORMAL) Glucose by meter (02/02/2012 7:32 AM CDT) P athologist Signature Glucose 148 (H) 60 - 99 POINT OF CARE mg/dL TEST, GLUCOSE Specimen Anatomical Collection Method Collection Time Receive d Time (Source) Location / / Volume Laterality 02/02/2012 7:32 AM 2 8:16 CDT AM CDT Jayy LAGUNAS - LIYA POCT Performing Organization Address City/[facility] Phon e Number FV POINT OF CARE TEST, GLUCOSE POINT OF CARE TEST, GLUCOSE TSH (02/02/2012 5:26 AM CDT) P athologist Signature TSH 1.64 0.4 - 5.0 [facility] mU/L [facility] Specimen Anatomical Collection Method Collection Time Receive d Time (Source) Location / / Volume Laterality 02/02/2012 5:26 AM 2 5:41 CDT AM CDT Jayy Gill MD LAB - BLOOD ORDERABLES Performing Organization Address [facility] Phon e Number M [facility] [address], [place] [address] [facility] Heparin Xa (10a) Level (02/02/2012 5:26 AM CDT) P athologist Signature Heparin 10A 0.20 IU/mL [facility] LAB Comment: Therapeutic Range: ?? UFH: ?? 0.15-0.35 IU/mL for low ?intensity dosing ?0.30-0.70 IU/mL for high ?intensity dosing ?? LMWH: ??1.00-2.00 IU/mL if 4-6 h ?post daily dosing ?0.60-1.00 IU/mL if 4-6 h ?post twice a day dosin g Specimen Anatomical Collection Method Collection Time Receive d Time (Source) Location / / Volume Laterality Blood specimen 02/02/2012 5:26 AM 012 5:41 (specimen) CDT AM CDT Jayy Gill MD LAB - BLOOD ORDERABLES Performing Organization Address City/State/ZIP Code Phon e Number M [facility] [address] [place] [address] [facility] (ABNORMAL) Basic metabolic panel (02/02/2012 5:26 AM CDT) Analysis Performed At Patho logist Time Signature Sodium 139 133 - 144 [place] mmol/L [facility] Potassium 4.1 3.4 - 5.3 [place] mmol/L [facility] Chloride 101 94 - 109 [place] mmol/L [facility] Carbon Dioxide 27 20 - 32 [place] mmol/L [facility] Anion Gap 10 6 - 17 [place] mmol/L [facility] Glucose 140 (H) 60 - 99 [place] mg/dL [facility] Urea Nitrogen 16 7 - 30 [place] mg/dL [facility] Creatinine 0.59 (L) 0.66 - [facility] 1.25 mg/dL [facility] GFR Estimate >90 >60 [place] mL/min/1.[address] LAB GFR Estimate If >90 >60 [place] Black mL/min/1.[address] LAB Calcium 8.7 8.5 - 10.4 [place] mg/dL [facility] Specimen Anatomical Collection Method Collection Time Receive d Time (Source) Location / / Volume Laterality Blood specimen 02/02/2012 5:26 AM 012 5:41 (specimen) CDT AM CDT Jayy Gill MD LAB - BLOOD ORDERABLES Performing Organization Address City/[facility] Phon e Number [place] [id number], [place] [address] [facility] (ABNORMAL) Hemoglobin A1c (02/02/2012 5:26 AM CDT) P athologist Signature Hemoglobin A1C 6.6 (H) 4.3 - 6.0 [facility] LAB Specimen Anatomical Collection Method Collection Time Receive d Time (Source) Location / / Volume Laterality Blood specimen 02/02/2012 5:26 AM 012 5:41 (specimen) CDT AM CDT Jayy Gill MD LAB - BLOOD ORDERABLES Performing Organization Address City/[facility] Phon e Number [place] [id number], [place] [address] [facility] (ABNORMAL) Troponin I - every 6 hours x 4 (02/02/2012 5:26 AM CDT) Analysis Performed At Patho logist Time Signature Troponin I ES 5.030 (HH) 0.000 - [place] 0.034 ug/L [facility] Comment: Critical Value called to and read back sam MICHELE (ICU) ON 5..12 AT 0615 BY EK Specimen Anatomical Collection Method Collection Time Receive d Time (Source) Location / / Volume Laterality Blood specimen 02/02/2012 5:26 AM 012 5:41 (specimen) CDT AM CDT Jayy Gill MD LAB - BLOOD ORDERABLES Performing Organization Address City/[facility]/ZIP [facility] Phon e Number M [place] [address], [place] [address] [facility] OXIMETRY COMPREHENSIVE REPORT - HIM Other Scan (02/02/2012) Narrative This result has an attachment that is no t available. Julianna Vazquez MD IP NURSING ACTIVITY (ABNORMAL) Troponin I - every 6 hours x 4 (02/01/2012 11:59 PM CDT) Analysis Performed At Patho logist Time Signature Troponin I ES 4.260 () 0.000 - [place] 0.034 ug/L [facility] LAB Comment: Critical Value called to and read back sam walker DALY(ICU)ON [id number] @0041 TT Specimen Anatomical Collection Method Collection Time Receive d Time (Source) Location / / Volume Laterality Blood specimen 02/01/2012 11:59 2 (specimen) PM CDT 12:07 AM CDT Jayy Gill MD LAB - BLOOD ORDERABLES Performing Organization Address City/[facility]/ZIP Code Phon e Number [place] [address] [address] [facility] LAB (ABNORMAL) Glucose by meter (02/01/2012 9:15 PM CDT) P athologist Signature Glucose 155 (H) 60 - 99 POINT OF CARE mg/dL TEST, GLUCOSE Specimen Anatomical Collection Method Collection Time Receive d Time (Source) Location / / Volume Laterality 02/01/2012 9:15 PM 2 9:20 CDT PM CDT Jayy Gill MD LAB - BEAKER POCT Performing Organization Address City/[facility] Phon e Number FV POINT OF CARE TEST, GLUCOSE POINT OF CARE TEST, GLUCOSE Heparin 10a Level (02/01/2012 7:40 PM CDT) P athologist Signature Heparin 10A 0.26 IU/mL [facility] LAB Comment: Therapeutic Range: ?? UFH: ?? 0.15-0.35 IU/mL for low ?intensity dosing ?0.30-0.70 IU/mL for high ?intensity dosing ?? LMWH: ??1.00-2.00 IU/mL if 4-6 h ?post daily dosing ?0.60-1.00 IU/mL if 4-6 h ?post twice a day dosin g Specimen Anatomical Collection Method Collection Time Receive d Time (Source) Location / / Volume Laterality Blood specimen 02/01/2012 7:40 PM 012 7:45 (specimen) CDT PM CDT Jayy Gill MD LAB - BLOOD ORDERABLES Performing Organization Address [facility]/ZIP [facility] Phon e Number M [facility] [address], [place] [address] [facility] (ABNORMAL) Troponin I - every 6 hours x 4 (02/01/2012 6:30 PM CDT) Analysis Performed At Patho logist Time Signature Troponin I ES 2.330 (HH) 0.000 - [place] 0.034 ug/L [facility] Comment: Critical Value called to and read back sam MCKOY (GRADE RECORDER) AT 1900 05.03.12, TD Specimen Anatomical Collection Method Collection Time Receive d Time (Source) Location / / Volume Laterality Blood specimen 02/01/2012 6:30 PM 012 6:34 (specimen) CDT PM CDT Jayy Gill MD LAB - BLOOD ORDERABLES Performing Organization Address City/[facility]/ZIP [facility] Phon e Number M [facility] [address], [place] [address] [facility] Heparin 10a Level (02/01/2012 6:30 PM CDT) P athologist Signature Heparin 10A 0.30 IU/mL [facility] LAB Comment: Therapeutic Range: ?? UFH: ?? 0.15-0.35 IU/mL for low ?intensity dosing ?0.30-0.70 IU/mL for high ?intensity dosing ?? LMWH: ??1.00-2.00 IU/mL if 4-6 h ?post daily dosing ?0.60-1.00 IU/mL if 4-6 h ?post twice a day dosin g Specimen Anatomical Collection Method Collection Time Receive d Time (Source) Location / / Volume Laterality Blood specimen 02/01/2012 6:30 PM 012 6:34 (specimen) CDT PM CDT Cheng Theron [facility] LAB - BLOOD ORDERABLES Performing Organization Address [facility] Phon e Number [facility] [address], [place] [address] [facility] (ABNORMAL) Glucose by meter (02/01/2012 5:02 PM CDT) P athologist Signature Glucose 121 (H) 60 - 99 POINT OF CARE mg/dL TEST, GLUCOSE Specimen Anatomical Collection Method Collection Time Receive d Time (Source) Location / / Volume Laterality 02/01/2012 5:02 PM 2 6:50 CDT AM CDT Jayy Gill MD LAB - BEAKER POCT Performing Organization Address [facility]/ZIP Code Phon e Number FV POINT OF CARE TEST, GLUCOSE POINT OF CARE TEST, GLUCOSE (ABNORMAL) Hemoglobin A1c (02/01/2012 3:18 PM CDT) athologist Signature Hemoglobin A1C 6.7 (H) 4.3 - 6.0 [facility] LAB Specimen Anatomical Collection Method Collection Time Receive d Time (Source) Location / / Volume Laterality Blood specimen 02/01/2012 3:18 PM 012 3:23 (specimen) CDT PM CDT Jayy Gill MD LAB - BLOOD ORDERABLES Performing Organization Address [facility] Phon e Number M [facility] [address] [place], [place] [address] [facility] (ABNORMAL) CBC with platelets (02/01/2012 3:18 PM CDT) P athologist Signature WBC 7.6 4.0 - 11.0 [place] 10e9/L [facility] RBC Count 4.71 4.4 - 5.9 [place] 10e12/L [facility] Hemoglobin 15.0 13.3 - [facility] 17.7 g/dL [facility] Hematocrit 44.7 40.0 - [place] 53.0 % [facility] MCV 95 78 - 100 [place] fl [facility] MCH 31.8 26.5 - [facility] 33.0 pg [facility] MCHC 33.6 31.5 - [facility] 36.5 g/dL [facility] RDW 13.8 10.0 - [place] 15.0 % [facility] Platelet Count 148 (L) 150 - 450 [place] 10e9/L [facility] Specimen Anatomical Collection Method Collection Time Receive d Time (Source) Location / / Volume Laterality Blood specimen 02/01/2012 3:18 PM 012 3:23 (specimen) CDT PM CDT Jayy Gill MD LAB - BLOOD ORDERABLES Performing Organization Address City/[facility]/ZIP [facility] Phon e Number M [facility] [address], [place] [address] [facility] (ABNORMAL) Troponin I - every 6 hours x 4 (02/01/2012 3:18 PM CDT) Analysis Performed At Patho logist Time Signature Troponin I ES 0.912 () 0.000 - [facility] 0.034 ug/L [facility] Comment: Critical Value called to and read back sam MCKOY (ICU CHARGE NURSE) AT 1555 05.03.12 , TD Specimen Anatomical Collection Method Collection Time Receive d Time (Source) Location / / Volume Laterality Blood specimen 02/01/2012 3:18 PM 012 3:23 (specimen) CDT PM CDT Jayy Gill MD LAB - BLOOD ORDERABLES Performing Organization Address City/[facility]/ZIP Code Phon e Number M [facility] [address], [place] [address] [facility] Echo complete with definity (02/01/2012 2:52 PM CDT) [facility] Method Time Signature [facility] RADIOLOGY Interpretation Summary RESULTS Left ventricular systolic function is normal. Th e visual ejection fraction is estimated at 55-60%. The left ventricle is normal in size. T here is mild concentric left ventricular hypertrophy. No regional wall mo tion abnormalities noted. PatientHeight: 71 in PatientWeight: 319 lbs SystolicPressure: 114 mmHg DiastolicPressure: 73 mmHg HeartRate: 71 bpm BSA 2.6 m^2 Left Ventricle The left ventricle is normal in size. There is mild concentric left ventricular hypertrophy. Left ventricular systolic function is normal. The visual ejection fraction is estimated at 55-60%. No regional wall motion abnormalities noted. There is no thrombus seen in the left ventricle. Right Ventricle The right ventricle is normal size. There is normal right ventricular wall thickness. The right ventricular systolic function is normal. There is no mass or thrombus in the right ventricle. Atria The left atrium is moderately dilated. Right atrial size is normal. There is no atrial shunt seen. Mitral Valve The mitral valve is normal in structure and function. There is mild to moderate (1-2+) mitral regurgitation. There is no mitral valve stenosis. Tricuspid Valve Normal tricuspid valve. The right ventricular systolic pressure is approximated at 25 mmHg plus the right atrial pressure. Right ventricle systolic pressure estimate normal. There is mild (1+) tricuspid regurgitation. There is no tricuspid stenosis. Aortic Valve The aortic valve is trileaflet. No aortic regurgitation is present. No aortic stenosis is present. Pulmonic Valve The pulmonic valve is not well seen, but is grossly normal. There is trace pulmonic valvular regurgitation. There is no pulmonic valvular stenosis. Vessels The aortic root is normal size. Normal ascending aorta. The IVC is normal in size and reactivity with respirat ion, suggesting normal central venous pressure. The pulmonary artery is normal size. Normal pulmonary vein velocity. Pericardium The pericardium appears normal. There is no pleural effusion. Rhythm The rhythm was normal sinus. Procedure Complete Portable Echo Adult. Contrast Optison. Doppler Measurements & Calculations TR Max pascual: 249 cm/sec TR Max P mmHg Interpreting Physician: ??Umair Alves, ??electronically signed on 02-01-2012 15:44:33 Anatomical Region Laterality Modality Echocardiography Specimen (Source) Anatomical Collection Method Collection Time Re ceived Time Location / / Volume Laterality 02/01/2012 2:52 PM CDT Jayy Gill MD CV ECHO ORDERABLES (ABNORMAL) Troponin I (02/01/2012 10:10 AM CDT) Analysis Performed At Patho logist Time Signature Troponin I ES 0.047 (H) 0.000 - [place] 0.034 ug/L [facility] LAB Comment: The 99th percentile for upper reference range is 0.034 ug/L. Troponin values in the range of 0.035 - 0.120 ug/L may be associated with risks of adverse clinical events. Specimen Anatomical Collection Method Collection Time Receive d Time (Source) Location / / Volume Laterality Blood specimen 02/01/2012 10:10 2 (specimen) AM CDT 10:16 AM CDT Stephen Liriano MD LAB - BLOOD ORDERABLES Performing Organization Address City/State/ZIP Code Phon e Number [place] [id number], [place] [address] [facility] EKG 12 lead (02/01/2012 9:51 AM CDT) Component Value Ref Range Test Analysis Performed Pathologis t Method Time At Signature Ventricular Rate 78 BPM RADIOLOGY RESULTS Atrial Rate 78 BPM RADIOLOGY RESULTS MA Interval 178 ms RADIOLOGY RESULTS QRS Duration 136 ms RADIOLOGY RESULTS QT 378 ms RADIOLOGY RESULTS QTc 430 ms RADIOLOGY RESULTS P [place] 77 degrees RADIOLOGY RESULTS R AXIS 3 degrees RADIOLOGY RESULTS T [place] -160 degrees RADIOLOGY RESULTS Interpretation Sinus rhythm with RADIOLO GY ECG Premature RESULTS supraventricular complexes Interpretation Non-specific RADIOLOGY ECG intra-ventricular RESULTS conduction block Interpretation Nonspecific T wave RADIOL OGY ECG abnormality RESULTS Interpretation Abnormal ECG RADIOLOGY ECG RESULTS Interpretation Unconfirmed report - interpr etation of this ECG is computer generated - see RADIOLOGY ECG medical record for final interpretation RESULTS Specimen (Source) Anatomical Collection Method Collection Time Re ceived Time Location / / Volume Laterality 02/01/2012 9:51 AM CDT tSephen Liriano MD ECG ORDERABLES Performing Organization Address City/State/ZIP Code Phon e Number RADIOLOGY RESULTS X-ray Chest 2 vws* (02/01/2012 9:44 AM CDT) Anatomical Region Laterality Modality Chest Other Specimen (Source) Anatomical Collection Method Collection Time Re ceived Time Location / / Volume Laterality 02/01/2012 9:44 AM CDT Impressions 02/04/2012 9:57 PM CDT CHEST TWO VIEWS ??February 01, 2012 9:44 AM HISTORY: Chest pain. COMPARISON: None. FINDINGS: Heart is enlarged in size. Fabiana tral vasculature is mildly prominent. Lungs are clear. IMPRESSION: Cardiomegaly. Question mild central pulmonary vascular congestion. Stephen Liriano MD IMG DIAGNOSTIC IMAGING ORDER ANN EKG 12 lead (02/01/2012 8:45 AM CDT) Component Value Ref Range Test Analysis Performed Pathologis t Method Time At Signature Ventricular Rate 86 BPM RADIOLOGY RESULTS Atrial Rate 227 BPM RADIOLOGY RESULTS QRS Duration 124 ms RADIOLOGY RESULTS QT 422 ms RADIOLOGY RESULTS QTc 504 ms RADIOLOGY RESULTS P [place] 90 degrees RADIOLOGY RESULTS R AXIS 7 degrees RADIOLOGY RESULTS T [place] -121 degrees RADIOLOGY RESULTS Interpretation Atrial flutter RADIOLOGY ECG with variable A-V RESULTS block Interpretation Non-specific RADIOLOGY ECG intra-ventricular RESULTS conduction delay Interpretation T wave RADIOLOGY ECG abnormality, RESULTS consider inferior ischemia Interpretation Abnormal ECG RADIOLOGY ECG RESULTS Interpretation Unconfirmed report - interpr etation of this ECG is computer generated - see RADIOLOGY ECG medical record for final interpretation RESULTS Specimen (Source) Anatomical Collection Method Collection Time Re ceived Time Location / / Volume Laterality 02/01/2012 8:45 AM CDT Stephen Liraino MD ECG ORDERABLES Performing Organization Address City/State/ZIP Code Phon e Number RADIOLOGY RESULTS Troponin I (02/01/2012 8:45 AM CDT) P athologist Signature Troponin I 0.026 0.000 - [place] 0.034 ug/L [facility] Specimen Anatomical Collection Method Collection Time Receive d Time (Source) Location / / Volume Laterality Blood specimen 02/01/2012 8:45 AM 012 9:04 (specimen) CDT AM CDT Stephen Liriano MD LAB - BLOOD ORDERABLES Performing Organization Address City/State/ZIP Code Phon e Number [facility] [address], [place] [address] [facility] (ABNORMAL) Basic metabolic panel (02/01/2012 8:45 AM CDT) Analysis Performed At Patho logist Time Signature Sodium 141 133 - 144 [place] mmol/L [facility] Potassium 4.1 3.4 - 5.3 [place] mmol/L [facility] Chloride 99 94 - 109 [place] mmol/L [facility] Carbon Dioxide 30 20 - 32 [place] mmol/L [facility] Anion Gap 12 6 - 17 [place] mmol/L [facility] Glucose 181 (H) 60 - 99 [place] mg/dL [facility] Urea Nitrogen 20 7 - 30 [place] mg/dL [facility] Creatinine 0.59 (L) 0.66 - [place] 1.25 mg/dL [facility] GFR Estimate >90 >60 [place] mL/min/1.[address] LAB GFR Estimate If >90 >60 [place] Black mL/min/1.[address] LAB Calcium 8.8 8.5 - 10.4 [place] mg/dL [facility] Specimen Anatomical Collection Method Collection Time Receive d Time (Source) Location / / Volume Laterality Blood specimen 02/01/2012 8:45 AM 012 9:04 (specimen) CDT AM CDT Stephen Liriano MD LAB - BLOOD ORDERABLES Performing Organization Address City/State/ZIP Code Phon e Number M [address] [facility] CBC with platelets differential (02/01/2012 8:45 AM CDT) [facility] gist Method Time Signature WBC 6.1 4.0 - [place] 11.0 [facility] 10e9/L [facility] RBC Count 4.93 4.4 - 5.9 [place] 10e12/L [facility] Hemoglobin 15.8 13.3 - [facility] 17.7 g/dL [facility] Hematocrit 47.0 40.0 - [facility] 53.0 % [facility] MCV 95 78 - 100 [place] fl [facility] MCH 32.0 26.5 - [facility] 33.0 pg [facility] MCHC 33.6 31.5 - [place] 36.5 g/dL [facility] RDW 14.0 10.0 - [place] 15.0 % [facility] Platelet Count 161 150 - 450 [facility] 10e9/L [facility] Diff Method Automated [facility] LAB % Neutrophils 55.3 40 - 75 % [facility] % Lymphocytes 29.5 20 - 48 % [facility] % Monocytes 9.1 0 - 12 % [facility] % Eosinophils 5.3 0 - 6 % [facility] % Basophils 0.5 0 - 2 % [facility] % Immature 0.3 0 - 0.4 % [place] Granulocytes [facility] Absolute 3.4 1.6 - 8.3 [place] Neutrophil 10e9/L [facility] Absolute 1.8 0.8 - 5.3 [place] Lymphocytes 10e9/L [facility] Absolute 0.6 0.0 - 1.3 [place] Monocytes 10e9[facility] Absolute 0.3 0.0 - 0.7 [place] Eosinophils 10e9L [facility] Absolute 0.0 0.0 - 0.2 [place] Basophils 10e9/[facility] Abs Immature 0.0 0 - 0.03 [place] Granulocytes [address] [place] [address] LAB Specimen Anatomical Collection Method Collection Time Receive d Time (Source) Location / / Volume Laterality Blood specimen 02/01/2012 8:45 AM 012 9:04 (specimen) CDT AM CDT Stephen Liriano MD LAB - BLOOD ORDERABLES Performing Organization Address City/State/ZIP Code Phon e Number M [place] [address] [place] [address] [facility] ECG - HIM ECG Scan (02/01/2012) Narrative This result has an attachment that is no t available. Stephen Liriano MD ECG ORDERABLES ECG - HIM ECG Scan (02/01/2012) Narrative This result has an attachment that is no t available. Stephen Liriano MD ECG ORDERABLES documented in this encounter Visit Diagnoses Diagnosis Unstable angina (H) Intermediate coronary syndrome HTN (hypertension) Unspecified essential hypertension Atrial flutter (H) Atrial flutter documented in this encounter Administered Medications Inactive Administered Medications - up to 3 most recent administrations Medication Order MAR Action Action Date Dose Rate Site 0.9 % sodium chloride IV Rate/Dose Verify 02/02/2012 7:00 AM 1,000 mL s 10 mL/hr solution CDT at 150 mL/hr, Intravenous, CONTINUOUS, 150 mL/hr IV for 2 hours prior to cardiac laborer vegetable farm procedure, then decrease to 75 mL/hr to run throughout the procedure. Start at 0800 for inpatients., Cardiac Pre-procedure, Starting on Sun02/02/12 at 0000, Until Sun02/02/12 at 1450 New Bag 02/01/2012 4:00 PM CDT 1,000 mLs 10 mL/hr 0.9 % sodium chloride IV solution New Bag 02/02/2012 4:49 PM C DT 1,000 mLs 75 mL/hr at 75 mL/hr, Intravenous, CONTINUOUS, Administer over 2 Hours, or until patient is ambulating. Post coronary angiogram diagnostic exams. , Starting on Sun02/02/12 at 1530, Until Sun02/04/12 at 1816 aspirin 81 MG chewable tablet Starting on Ana 02/01/12 at 0855, For 1 dose, MADELYN CAGE: Kannaninet Override aspirin chewable tablet 243 mg Given 02/01/2012 8:53 AM CDT 243 mg 243 mg, Oral, ONCE, On Ana 02/01/12 at 0900, For 1 dose, Hold if patient allergy to aspirin, or if aspirin has been given during this episode. aspirin EC tablet 325 mg Given 02/04/2012 8:14 AM CDT 325 mg 325 mg, Oral, DAILY, First dose on Sun02/02/12 at 0900, Including day before and day of cardiac laborer vegetable farm procedure (except if pt. Allergic) if not already given today in ED for patients arriving on day of cardiac laborer vegetable farm procedure. Already received total of 325 mg 5 am. Given 02/03/2012 8:05 AM CDT 325 mg Given 02/02/2012 9:00 AM CDT 325 mg clopidogrel (PLAVIX) tablet 300 mg Given 02/01/2012 6:47 PM CDT 300 mg 300 mg, Oral, ONCE, On Ana 02/01/12 at 1700, For 1 dose enoxaparin (LOVENOX) injection 150 mg Given 02/04/2012 8:14 AM CDT 150 mg 150 mg (1 mg/kg ? 145.6 kg), Subcutaneous, EVERY 12 HOURS, First dose on Sun02/02/12 at 2000 Given 02/03/2012 8:42 PM CDT 150 mg Given 02/03/2012 8:05 AM CDT 150 mg fentaNYL (SUBLIMAZE) injection 25-50 mcg Given 02/02/2012 2:38 PM CDT 100 mcg 25-50 mcg, Intravenous, EVERY 2 MIN PRN, moderate to severe pain, other, when verbally ordered by prescriber during the procedure., Starting on Sun02/02/12 at 1335, Doses can be exceeded under direct oversight of the patient by physician., Cardiac Intra-procedure furosemide (LASIX) injection 20 mg Given 02/04/2012 9:36 AM CDT 20 mg 20 mg, Intravenous, ONCE, On Sun02/04/12 at 0930, For 1 dose heparin bolus dose from drip 5,500 Given 02/01/2012 12:34 PM CDT 5,500 Units Units 5,500 Units, Intravenous, ONCE, On Ana 02/01/12 at 1200, For 1 dose heparin drip 25,000 Rate/Dose Verify 02/02/2012 7:30 AM 1,100 Units/h r 11 mL/hr units in D5W 250 mL CDT 1,100 Units/hr (rounded to 11 mL/hr), Intravenous, CONTINUOUS, Starting on Sun02/01/12 at 1200, Continue at 1100 units/hr for Heparin 10a level of 0.3. Check next Heparin 10a level with AM labs 02/01., Initial Set-up verified by: qtt at 1,100 u/ hr New Bag 02/02/2012 4:47 AM CDT 1,100 Units/hr 11 mL/hr Rate/Dose Verify 02/01/2012 2:03 PM CDT 1,100 Units/hr 11 mL/hr insulin aspart (NovoLOG) injection Given 02/03/2012 6:09 PM CDT 1 Units 1-5 Units, Subcutaneous, 3 TIMES DAILY BEFORE MEALS, First dose on Sun02/01/12 at 1700, Correction Scale - MEDIUM INSULIN RESISTANCE DOSING Do Not give Correction Insulin if Pre-Meal BG < 140. For Pre-Meal BG 140 - 189 give 1 unit. For Pre-Meal BG 190 - 239 give 2 units. For Pre-Meal BG 240 - 289 give 3 units. For Pre-Meal BG 290 - 339 give 4 units. For Pre-Meal BG = or > 340 give 5 units. To be given with prandial insulin, and based on pre-meal blood glucose. Notify MD if glucose > or = 350 mg/dL after administration of correction dose. If given at mealtime, must be administered 5 min before meal or immediately after. Dispose as HW Given 02/03/2012 7:53 AM CDT 1 Units Left Arm lisinopril (PRINIVIL,Zestril) tablet 2.5 mg Given 02/03/2012 10:52 AM CDT 2.5 mg 2.5 mg, Oral, 2 TIMES DAILY, First dose on 02/03/12 at 1045, Hold for SBP < 100 lisinopril (PRINIVIL,Zestril) tablet 2.5 mg Given 02/03/2012 2:23 PM CDT 2.5 mg 2.5 mg, Oral, ONCE, On 02/03/12 at 1430, For 1 dose lisinopril (PRINIVIL,ZESTRIL) tablet 5 m g Given 02/04/2012 8:14 AM CDT 5 mg 5 mg, Oral, 2 TIMES DAILY, First dose on 02/03/12 at 2100, Hold for bp less than 100. Given 02/03/2012 8:42 PM CDT 5 mg metoprolol (LOPRESSOR) tablet 12.5 mg Given 02/02/2012 9:01 AM CDT 12.5 mg 12.5 mg, Oral, 2 TIMES DAILY, First dose on Ana 02/01/12 at 2100, Hold for SBP < 100 or HR < 60 metoprolol (LOPRESSOR) tablet 25 mg Given 02/01/2012 11:19 AM CDT 25 mg 25 mg, Oral, ONCE, On Ana 02/01/12 at 1115, For 1 dose metoprolol (TOPROL-XL) 24 hr tablet 100 mg Given 02/03/2012 8:05 AM CDT 100 mg 100 mg, Oral, DAILY, First dose on Sun02/02/12 at 1530, DO NOT CRUSH. Tablet may be split in half along score line. Given 02/02/2012 4:46 PM CDT 100 mg metoprolol (TOPROL-XL) 24 hr tablet 50 m g Given 02/04/2012 8:14 AM CDT 50 mg 50 mg, Oral, 2 TIMES DAILY, First dose (after last modification) on Sun02/04/12 at 0900, DO NOT CRUSH. Tablet may be split in half along score line. Hold if systolic bp<100 or hr<60 midazolam (VERSED) injection 0.5-2 mg Given 02/02/2012 2:39 PM CDT 1.5 mg 0.5-2 mg, Intravenous, EVERY 2 MIN PRN, other, when verbally ordered by prescriber during the procedure., Starting on Sun02/02/12 at 1335, Doses can be exceeded under direct oversight of the patient by physician., Cardiac Intra-procedure nitroglycerin (NITRODUR) 0.4 MG/HR 1 Given 02/01/2012 9:26 AM CD T 1 patch Left Arm patch 1 patch, Transdermal, ONCE, On Ana 02/01/12 at 0930, For 1 dose nitroglycerin (NITRODUR) 0.4 MG/HR Starting on Ana 02/01/12 at 0927, For 1 dose, MADELYN CAGE: Cabinet Override nitroglycerin (NITROSTAT) 0.4 MG SL tabl et Starting on Ana 02/01/12 at 0858, For 1 dose, MADELYN CAGE: Cabinet Override nitroglycerin (NITROSTAT) SL tablet 0.4 mg Given 02/01/2012 9:17 AM CDT 0.4 mg 0.4 mg, Sublingual, EVERY 5 MIN PRN, chest pain, Starting on Ana 02/01/12 at 0855, For 3 doses, until pain subsides. Hold for SBP<90 Given 02/01/2012 9:09 AM CDT 0.4 mg Given 02/01/2012 9:03 AM CDT 0.4 mg nitroglycerin 50 mg in D5W 250 mL (adult std) 200-5 MCG/ML-% infusion Starting on Ana 02/01/12 at 1003, For 1 dose, MADELYN CAGE: Cabinet Override nitroglycerin 50 mg in D5W 250 mL New Bag 02/02/2012 7:24 AM C DT mcg/kg/min mL/hr (adult std) 200-5 MCG/ML-% infusion Starting on Sun02/02/12 at 0539, For 1 dose, DALY NORWOOD: Cabinet Override nitroglycerin 50 mg in Rate/Dose Verify 02/01/2012 2:03 PM 40 mcg/min 12 mL/hr D5W 250 mL (adult std) CDT infusion 40 mcg/min (rounded to 12 mL/hr), Intravenous, CONTINUOUS, Starting on Ana 02/01/12 at 1000, Initial Set-up verified by: Stef Dunbar 02/01/2012 10:11 AM CDT 40 mcg/min 12 mL/hr Left Arm nitroglycerin 50 mg in Rate/Dose Change 02/02/2012 9:00 AM CDT 20 m cg/min 6 mL/hr D5W 250 mL (adult std) infusion 10 mcg/min (rounded to 3 mL/hr), Intravenous, CONTINUOUS, Starting on Ana 02/01/12 at 1500, Start at 10 mcg/min continuous IV; titrate by 5 mcg/min Q 5-10 min to keep SBP less than 120 mmHg and greater than 90mmHG and control angina. Hold for SBP Less than 85. Notify MD if patient continues to have chest pain. Max Dose: 100 mcg/min, Initial Set-up verified by: NTG qtt at 40 mcg's / hr (titraable) Rate/Dose Verify 02/02/2012 7:30 AM CDT 40 mcg/min 12 mL/hr Rate/Dose Verify 02/02/2012 5:30 AM CDT 40 mcg/min 12 mL/hr nitroglycerin Cmpd syr inj, 10ml Given by Other 02/02/2012 2:40 PM CD T 0.4 mg 0.1-0.5 mg 0.1-0.5 mg (100-500 mcg), INTRA-ARTERIAL, ONCE PRN, for radial artery sheath protocol, when verbally ordered by prescriber during the procedure, Starting on Sun02/02/12 at 1335, For 1 dose, Prescriber will administer the dose. Dispose as HW-P, Cardiac Intra-procedure pantoprazole (PROTONIX) EC tablet 40 mg Given 02/04/2012 6:32 AM CDT 40 mg 40 mg, Oral, EVERY MORNING BEFORE BREAKFAST, First dose on Sun02/02/12 at 0730, DO NOT CRUSH. Given 02/03/2012 8:05 AM CDT 40 mg Given 02/02/2012 6:56 AM CDT 40 mg pravastatin (PRAVACHOL) tablet 80 mg Given 02/03/2012 8:42 PM CDT 80 mg 80 mg, Oral, DAILY, First dose on Sun02/01/12 at 2000 Given 02/02/2012 7:58 PM CDT 80 mg Given 02/01/2012 9:50 PM CDT 80 mg senna-docusate (SENOKOT-S;PERICOLACE) Given 02/04/2012 8:14 AM C DT 2 tablets 8.6-50 MG per tablet 1-2 tablet 1-2 tablet, Oral, 2 TIMES DAILY, First dose on Sun02/01/12 at 2100, Start with 1 tablet PO BID, If no bowel movement in 24 hours, increase to 2 tablets po BID. Hold for loose stools. Given 02/03/2012 8:05 AM CDT 1 tablet Given 02/02/2012 7:59 PM CDT 1 tablet sodium chloride 0.9 % flush 3 mL Given 02/04/2012 8:14 AM CDT 3 mLs 3 mL, Intravenous, EVERY 8 HOURS, First dose on Sun02/01/12 at 2200, And Q1H PRN, to lock peripheral IV dormant line. Given 02/04/2012 12:22 AM CDT 3 mLs Given 02/03/2012 4:10 PM CDT 3 mLs sodium chloride 0.9 % flush 3 mL Given 02/01/2012 7:00 PM CDT 3 mLs 3 mL, Intravenous, EVERY 8 HOURS, First dose on Sun02/01/12 at 1930, And Q1H PRN, to lock peripheral IV dormant line. , Cardiac Pre-procedure sodium chloride 0.9 % flush 3 mL Given 02/03/2012 8:10 AM CDT 3 mLs 3 mL, Intravenous, EVERY 1 HOUR PRN, line flush, Starting on Sun02/02/12 at 1515, for peripheral IV flush post IV meds sodium chloride 0.9 % flush 3 mL Given 02/04/2012 8:14 AM CDT 3 mLs 3 mL, Intravenous, EVERY 8 HOURS, First dose on Sun02/02/12 at 1530, And Q1H PRN, to lock peripheral IV dormant line. Given 02/04/2012 12:31 AM CDT 3 mLs Given 02/03/2012 4:10 PM CDT 3 mLs verapamil (ISOPTIN) injection 1-2.5 Given by Other 02/02/2012 2 :39 PM CDT 2.5 mg mg 1-2.5 mg, INTRA-ARTERIAL, ONCE PRN, when verbally ordered by prescriber during procedure , Starting on Sun02/02/12 at 1335, For 1 dose, For radial or brachial access., Cardiac Intra-procedure warfarin (COUMADIN) tablet 7.5 mg Given 02/02/2012 7:59 PM CDT 7.5 mg 7.5 mg, Oral, ONCE AT 6PM, On Sun02/02/12 at 1915, For 1 dose, Dispose as HW-P warfarin (COUMADIN) tablet 7.5 mg Given 02/03/2012 6:06 PM CDT 7.5 mg 7.5 mg, Oral, ONCE AT 6PM, On Sun02/03/12 at 1800, For 1 dose, Dispose as HW-P documented in this encounter Active and Recently Administered Medications Times are shown in CDT. Scheduled Medication Order 02/02/2012 02/03/2012 02/04/2012 aspirin EC tablet 325 mg (CANCELED) 899 (Given - Provider: Brian Little RN) 804 (Given - Provider: Misa Nelson) 813 (Given - Provider: Modesto Carey) 325 mg, Oral, DAILY, First dose on Sun at 0900, Including day before and day of cardiac laborer vegetable farm procedure (except if pt. Allergic) if not already given today in ED for patients arriving on day o f cardiac laborer vegetable farm procedure. Already received total of 325 mg 5 /3 am. enoxaparin (LOVENOX) injection 150 mg 1956 (Given - Pr ovider: Sherman Messer RN) 804 (Given - Provider: Misa Nelson)2041 (Given - Provider: Mildred Massey RN) 14 (Given - Provider: Modesto Carey) 1 mg/kg ? 145.6 kg = 150 mg, Subcutaneous, EVERY 12 HOURS, First dose on Sun02/02/12 at 2000 furosemide (LASIX) injection 20 mg (COMPLETED) 935 (Given - Provider: Sariah Torres RN) 20 mg, Intravenous, ONCE, 02/04/12 at 0930, For 1 dose insulin aspart (NovoLOG) injection (CANCELED) 08 (Ho ld - Provider: Ana Tian LPN - Reason: NPO)1200 (Not Given - Provider: Brian Little RN - Reason: Order parameters not met - Comment: [phone] (Not Given - Provider: Mildred Massey RN - Reason: Order parameters not met - Comment: 138) 0753 (Given - Provider: Eran Ambrose LPN - Comment: [phone] (Not Given - Provider: Eran Ambrose LPN - Reason: Order parameters not met - Comment: [phone] (Given - Provider: Sulema East RN) 0727 (Not Given - Provider: Marta Bynum LPN - Reason: Order parameters not met - Comment: bg [phone] (Not Given - Provider: Marta Bynum LPN - Reason: Order parameters not met - Comment: bg 130) 1-5 Units, Subcutaneous, 3 TIMES DAILY B EFORE MEALS, First dose on Ana 02/01/12 at 1700, Correction Scale - MEDIUM INSULIN RESISTANCE DOSING Do Not give Correction Insulin if Pre-Meal BG < 140. For Pre -Meal BG 140 - 189 give 1 unit. For Pre- Meal BG 190 - 239 give 2 units. For Pre- Meal BG 240 - 289 give 3 units. For Pre-Meal BG 290 - 339 give 4 units. For Pre- Meal BG = or > 340 give 5 units. To be given with prandial insulin, and based o n pre-meal blood glucose. Notify MD if glucose > or = 350 mg/dL after administration of correction dose. If given at mealtime, must be administered 5 min before meal or immediately after. Dispose as HW lisinopril (PRINIVIL,Zestril) tablet 2.5 mg (CANCELED) 1052 (Given - Provider: Misa Nelson) 2.5 mg, Oral, 2 TIMES DAILY, First dose on 02/03/12 at 1045, Hold for SBP < 100 lisinopril (PRINIVIL,Zestril) tablet 2.5 mg (COMPLETED) 1423 (Given - Provider: Eran Ambrose LPN) 2.5 mg, Oral, ONCE, 02/03/12 at 1430, For 1 dose lisinopril (PRINIVIL,ZESTRIL) tablet 5 mg 2042 (Given - Provider: Mildred Massey RN) 0814 (Given - Provider: Modesto Carey) 5 mg, Oral, 2 TIMES DAILY, First dose on Sun02/03/12 at 2100, Hold for bp less than 100. metoprolol (LOPRESSOR) tablet 12.5 mg (CANCELED) 900 (Given - Provider: Brian Little RN) 12.5 mg, Oral, 2 TIMES DAILY, First dose on Ana 02/01/12 at 2100, Hold for SBP < 100 or HR < 60 metoprolol (TOPROL-XL) 24 hr tablet 100 mg (CANCELED) 1646 (Given - Provider: Brian Little RN) 0805 (Given - Provider: Misa Nelson) 100 mg, Oral, DAILY, First dose on Sun at 1530, DO NOT CRUSH. Tablet may be split in half along score line. metoprolol (TOPROL-XL) 24 hr tablet 50 mg 813 (Given - Provider: Marta Bynum LPN) 50 mg, Oral, 2 TIMES DAILY, First dose o [place] 02/04/12 at 0900, DO NOT CRUSH. Tablet may be split in half along score line. Hold if systolic bp<100 or hr<60 pantoprazole (PROTONIX) EC tablet 40 mg (CANCELED) 065 6 (Given - Provider: Daly Norwood RN) 0805 (Given - Provider: Misa Nelson) 0632 (Given - Pro vider: Jaclyn Rebolledo LPN) 40 mg, Oral, EVERY MORNING BEFORE BREAKF AST, First dose on Sun02/02/12 at 0730, DO NOT CRUSH. pravastatin (PRAVACHOL) tablet 80 mg (CANCELED) 1957 ( Given - Provider: Sherman Messer RN) 2041 (Given - Provider: Mildred Massey RN) 80 mg, Oral, DAILY, First dose on Ana 02/01/12 at 2000 senna-docusate (SENOKOT-S;PERICOLACE) 8. 6-50 MG per tablet 1-2 tablet (CANCELED) 900 (Given - Provider: Brian Little RN) 1958 (Given - Provider: Sherman Messer RN)2212 (Not Given - Provider: Sherman Messer RN - Reason: Other - Comment: given early) 0805 (Given - Provider: Misa Nelson)2041 (Not Given - Provider: Mildred Massey RN - Reason: Patient/family refused) 0814 (Given - Provider: Marta Bynum LPN) 1-2 tablet, Oral, 2 TIMES DAILY, First d ose on Ana 02/01/12 at 2100, Start with 1 tablet PO BID, If no bowel movement in 24 hours, increase to 2 tablets po BID. Hold for loose stools. sodium chloride 0.9 % flush 3 mL (CANCELED) 0527 (Give n - Provider: Daly Norwood RN)1555 (Not Given - Provider: Brian Little RN - Reason: Transfer to a procedural area)2215 (Not Given - Provider: Sherman Messer RN - Reason: IV Infusing) 0600 (Canceled Entry - Provider: Michael Luke RN)0811 (Given - Provider: Sharla Ruiz RN)1610 (Given - Provider: Sulema East RN) 0022 (Given - Provider: JYOTSNA Weber)0814 (Given - Provider: Marta Bynum LPN)1600 (Canceled Entry - Provider: Sharla Ruiz RN) 3 mL, Intravenous, EVERY 8 HOURS, First dose on Ana 02/01/12 at 2200, And Q1H PRN, to lock peripheral IV dormant line. sodium chloride 0.9 % flush 3 mL (CANCELED) 1648 (Give n - Provider: Brian Little RN)2330 (Not Given - Provider: Sherman Messer RN - Reason: IV Infusing) 0810 (Given - Provider: Sharla Ruiz RN)1610 (Given - Provider: Sulema East RN) 0031 (Given - Provider: Kimberly hoang RN)0814 (Given - Provider: Marta Bynum LPN)1600 (Canceled Entry - Provider: Sharla Ruiz RN) 3 mL, Intravenous, EVERY 8 HOURS, First dose on Sun02/02/12 at 1530, And Q1H PRN, to lock peripheral IV dormant line. warfarin (COUMADIN) tablet 7.5 mg (COMPLETED) 1958 (Gi didier - Provider: Sherman Messer, RN) 7.5 mg, Oral, ONCE AT 6PM, 02/02/12 at 1915, For 1 dose, Dispo se as HW-P warfarin (COUMADIN) tablet 7.5 mg (COMPLETED) 180 (Given - Provider: Sulema East, SIENNA) 7.5 mg, Oral, ONCE AT 6PM, 02/03/12 at 1800, For 1 dose, Dispo se as HW-P Continuous Medication Order 02/02/2012 02/03/2012 02/04/2012 0.9 % sodium chloride IV solution (CANCELED) 0700 (Rat e/Dose Verify - Provider: Brian Little RN) 1,000 mL, Intravenous, at 150 mL/hr, CON TINUOUS, Starting 02/02/12 at 0000, 150 mL/hr IV for 2 hours prior to cardiac laborer vegetable farm procedure, then decrease to 75 mL/hr to run throughout the procedure. Sta rt at 0800 for inpatients., Cardiac Pre-procedure 0.9 % sodium chloride IV solution (CANCELED) 1649 (New Bag - Provider: Brian Little RN) 1,000 mL, Intravenous, at 75 mL/hr, CONT INUOUS, Starting 02/02/12 at 1530, or until patient is ambulating. Post coronary angiogram diagnostic exams. heparin drip 25,000 units in D5W 250 mL (CANCELED) 044 7 (New Bag - Provider: Daly Norwood RN)0730 (Rate/Dose Verify - Provider: Brian Little RN)1325 (Stopped - Provider: Essie Lorenzo, SIENNA) 1,100 Units/hr = 11 mL/hr, Intravenous, at 11 mL/hr, CONTINUOUS, Starting Ana 02/01/12 at 1200, Continue at 1100 units/hr for Heparin 10a level of 0.3. Check next Heparin 10a level with AM labs 02/01. nitroglycerin 50 mg in D5W 250 mL (adult std) infusion (CANCELED) 0530 (Rate/Dose Verify - Provider: Daly Norwood RN)0730 (Rate/Dose Verify - Provider: Brian Little RN)0900 (Rate/Dose Change - Provider: Brian Little RN) 10 mcg/min = 3 mL/hr, Intravenous, at 3 mL/hr, CONTINUOUS, Starting Ana 02/01/12 at 1500, Start at 10 mcg/min continuous IV; titrate by 5 mcg/min Q 5-10 min to keep SBP less than 120 mmHg and greater than 90mmHG and control angina. Hold for SBP Less than 85. Notify MD if patient continues to have chest pain. Max Dose: 100 mcg/min PRN Medication Order 02/02/2012 02/03/2012 02/04/2012 fentaNYL (SUBLIMAZE) injection 25-50 mcg (CANCELED) 14 38 (Given - Provider: Essie Lorenzo RN - Comment: Total dose charted. See mac lab report.) 25-50 mcg, Intravenous, EVERY 2 MIN PRN, moderate to severe pain, other, when verbally ordered by prescriber during the procedure., Starting Sun02/02/12 at 1335, Doses can be exceeded under direct oversi ght of the patient by physician., Cardiac Intra-procedure midazolam (VERSED) injection 0.5-2 mg (CANCELED) 1439 (Given - Provider: Essie Lorenzo RN - Comment: Total dose given.See mac lab report.) 0.5-2 mg, Intravenous, EVERY 2 MIN PRN, other, when verbally ordered by prescriber during the procedure., Starting Sun02/02/12 at 1335, Doses can be exceeded under direct oversight of the patient by physician., Cardiac Intra-procedure nitroglycerin Cmpd syr inj, 10ml 0.1-0.5 mg (CANCELED) 1440 (Given by Other - Provider: sEsie Lorenzo RN - Comment: Total dose given. See mac lab report.) 100-500 mcg = 0.1-0.5 mg, INTRA-ARTERIAL , ONCE PRN, for radial artery sheath protocol, when verbally ordered by prescriber during the procedure, Starting Sun02/02/12 at 1335, For 1 dose, Prescriber will administer the dose. Dispose as HW-P, Cardiac Intra-procedure sodium chloride 0.9 % flush 3 mL (CANCELED) 0810 (Given - Provider: Sharla Ruiz, SIENNA) 3 mL, Intravenous, EVERY 1 HOUR PRN, carlos enrique e flush, Starting Sun02/02/12 at 1515, for peripheral IV flush post IV meds verapamil (ISOPTIN) injection 1-2.5 mg (CANCELED) 1439 (Given by Other - Provider: Essie Lorenzo RN - Comment: Total dose given by Dr. Alves. See mac lab report.) 1-2.5 mg, INTRA-ARTERIAL, ONCE PRN, when verbally ordered by prescriber during procedure , Starting Sun02/02/12 at 1335, For 1 dose, For radial or brachial access., Cardiac Intra-procedure No Frequency Medication Order 02/02/2012 02/03/2012 02/04/2012 nitroglycerin 50 mg in D5W 250 mL (adult std) 200-5 MCG/ML-% infusion (COMPLETED) 0724 (New Bag - Provider: Den Cueva - Comment: see below/charted) Starting on Sun02/02/12 at 0539, For 1 dose, DALY NORWOOD: Cabinet Override documented in this encounter Care Teams Back Shoe Worker Relationship Specialty Start Date End Date Nas Cardenas MD PCP - General Family Practice 02/01/12 04/12/17 documented as of this encounter
--- OUTSIDE RECORDS SUMMARY | 2022-06-22 09:00 | XMS_ITS | Encounter Summary ---
:1940 Author Organization [facility] Address [address] [place] [address] Care Team Providers Name Role Phone Unavailable Primary Care Provider Unavailable Encounter Details Date Type Department Care Team Description 10/13/2004 Historic [employer] INTERFACED REPORT Dasha Gonzalez MD [facility] [place] [address] [facility] [address] [place] [address] (Wo rk) Social History Tobacco Use Types Packs/Day Years Used Date Never Smoker Alcohol Use Standard Drinks/Week Comments Yes 0 (1 standard drink = 0.6 oz pure alcoho l) Sex Assigned at Date Recorded Not on file documented as of this encounter Progress Notes Dasha Gonzalez MD - 09/06/2011 4:57 AM [facility] OPERATOR 1st ASS'T: Sabino Ceja 2nd ASS'T: PRE-OPERATIVE DIAGNOSIS:Choroidal melanoma, macula, right eye. POST-OPERATIVE DIAGNOSIS:Choroidal melanoma, macula, right eye. OPERATION:Placement of iodine-125 radioactive plaque, right eye. COMPLICATIONS: None. SPECMIENS: None. PROCEDURE: After appropriate informed consent was obtained from Radha Farooq, the patient had a retrobulbar anesthetic block consisting of 4% lidocaine and 0.75% bupivacaine. After adequate akinesia and anesthesia was obtained, the patient was brought to the operating room and prepped and draped in usual sterile ophthalmic fashion. After a lid speculum was inserted into the right eye, a 360 degree conjunctival peritomy was performed and the Tenon's capsule was incised in all four quadrants using a curved Mcdaniel scissors. The four rectus muscles were looped with 2-0 silk sutures. The indirect ophthalmoscope was then used to size the tumor. It was a large macular tumor which extended out temporally. Decision was made to remove the lateral rectus in order to place the plaque. A 5-0 Vicryl suture, double-armed, was used to pass sutures through the base of the muscle and the muscle was disinserted using Katerine scissors. A small amount of bleeding was encountered and this was remedied with cautery. The dummy plaque was then placed and positioning for the sutures was performed. The real plaque was then placed which was a 16 mm notched plaque, given the macula location of the tumor. This was sewn into place with two 5-0 nylon sutures. The indirect ophthalmoscope along with the transillumination probe was then used to ensure that the plaque covered the entire surface of the tumor. The lateral rectus was then reinserted into the base of the muscle insertion and the ends of the Vicryl suture were cut long. The conjunctival wounds were then closed with 6-0 plain suture. Ancef 25 mg and Decadron 10 mg were injected inferiorly. The drapes were then removed. Scopolamine 0.25% drops were placed in the eye, and the eye was patched and shielded. The patient was then successfully escorted from the OR, tolerated the procedure well, and left the OR in good condition. DASHA GONZALEZ MD MT: taj Document: [id number] CC: DASHA GONZALEZ MD [place], [place] Name: RADHA FAROOQ OPERATIVE REPORT Page 2 of 2 LCN: EYE DSC: 10/13/2004 [place], [place] Name: RADHA FAROOQ MR#: : Procedure Date: [id number] 1940 10/13/2004 Surgeon: DASHA GONZALEZ MD OPERATIVE REPORT Page 1 of 2 OPERATOR documented in this encounter Plan of Treatment Upcoming Encounters Date Type Specialty Care Team Description 06/26/2022 Ancillary Procedure Cardiology Seng Canchola MD [address] [facility] [address] [place] [id number] (Wo rk) 08/16/2022 Ancillary Procedure Cardiology Timothy Smith MD [address] [place] [id number] (Wo rk) 08/16/2022 Office Visit Cardiology Timothy Smith MD [address] [place] [id number] (Wo rk) documented as of this encounter Visit Diagnoses Not on filedocumented in this encounter
--- OUTSIDE RECORDS SUMMARY | 2022-06-22 09:00 | XMS_ITS | Encounter Summary ---
:1940 Author Organization [place] Address [address] [place] [address] Care Team Providers Name Role Phone Unavailable Primary Care Provider Unavailable Encounter Details Date Type Department Care Team Description 08/06/2004 Allied Health/Nurse [facility] VAC CINE FOR INFLUENZA Visit Clinic [place] [address] [place] [address] Social History Tobacco Use Types [...] [address] [place] [id number] (Wo rk) 08/16/2022 Ancillary Procedure Cardiology Timothy Smith MD [address] [place] [id number] (Wo rk) 08/16/2022 Office Visit Cardiology Timothy Smith MD [address] [place] [id number] (Wo rk) documented as of this encounter Visit Diagnoses Diagnosis Need for prophylactic vaccination and in oculation against influenza documented in this encounter
--- OUTSIDE RECORDS SUMMARY | 2022-06-22 09:00 | XMS_ITS | Encounter Summary ---
:1940 Author Organization [place] Address [address] 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 OPERATION:Remove of I125 radioactive plaque right eye. Complications none. Specimens none. PROCEDURE: After appropriate informed consent was obtained from the patient, the patient had a retrobulbar anesthetic block consisting of 4% lidocaine and 0.75% Bupivacaine. After adequate akinesia and anesthesia was obtained, the patient was brought to the OR and prepped and draped in the usual sterile ophthalmic fashion. A lid speculum was inserted into the right eye. A temporal conjunctival peritomy was performed and the Tenon's capsule was incised. The superior and inferior rectus muscles were looped with 2-0 silk sutures. The double armed 5-0 nylon suture was used to reinforce attachment to the lateral rectus muscle. The muscle was then disinserted. The previously placed suture was removed. The radioactive plaque which was quite large and notch plaque located in the macula was removed after removing the two 5-0 nylon sutures folding this in place. Lateral rectus muscle was then reinserted to the muscle insertion using the needles on the 5-0 nylon double armed suture. This was tied down and the ends were cut fairly long on the suture. The buccal element was then irrigated with Tobramycin solution. The conjunctiva was closed with 6-0 plain suture. Decadron 10 mg was injected inferiorly. The drapes were then removed. Scopolamine 0.24% drops were placed on the eye and the eye was patched and shielded. The patient was escorted from the OR and tolerated the procedure well and left the OR in good condition. DASHA GONZALEZ MD MT: [email or web address] Document: [id number] CC: DASHA GONZALEZ MD [place], [place] Name: RADHA FAROOQ OPERATIVE REPORT Page 2 of 1 LCN: EYE DSC: 10/17/2004 [place], [place] Name: RADHA FAROOQ MR#: : Procedure Date: -86 1940 10/17/2004 Surgeon: DASHA GONZALEZ MD OPERATIVE REPORT Page 1 of 1 MAKER documented in this encounter Plan of Treatment Upcoming Encounters Date Type Specialty Care Team Description 06/26/2022 Ancillary Procedure Cardiology Seng Canchola MD [address] [place] [id number] (Wo rk) 08/16/2022 Ancillary Procedure Cardiology Timothy Smith MD [address] [place] [phone] (Wo rk) 08/16/2022 Office Visit Cardiology Timothy Smith MD [address] [place] [id number] (Wo rk) documented as of this encounter Visit Diagnoses Not on filedocumented in this encounter
--- OUTSIDE RECORDS SUMMARY | 2022-06-22 09:00 | XMS_ITS | Encounter Summary ---
:1940 Author Organization [place] Address [address] [place] [address] Care Team Providers Name Role Phone Nas Cardenas MD Primary Care Provider Encounter Details Date Type Department Care Team Description 02/01/2012 Historic Results [facility] Heart Unknown, [facility] ider Clinic [place] [address] [facility] [address] [place] [phone] Social History Tobacco Use Types Packs/Day Years Used Date Never Smoker Alcohol Use Standard Drinks/Week Comments Yes 0 (1 standard drink = 0.6 oz pure alcoho l) Sex Assigned at Date Recorded Not on file documented as of this encounter Plan of Treatment Upcoming Encounters Date Type Specialty Care Team Description 06/26/2022 Ancillary Procedure Cardiology Segn Canchola MD [address] [place] [id number] (Wo rk) 08/16/2022 Ancillary Procedure Cardiology Timothy Smith MD [address] [place] [id number] (Wo rk) 08/16/2022 Office Visit Cardiology Timothy Smith MD [address] [place] [id number] (Wo rk) documented as of this encounter Procedures Procedure Name Priority Date/Time Associated Diagnosis Comme nts ECHO CARDIAC - HIM SCAN 02/01/2012 12:00 AM CDT - ARCHIVE documented in this encounter Results ECHO CARDIAC - HIM SCAN - ARCHIVE (02/01/2012 12:00 AM CDT) Specimen (Source) Anatomical Location Collection Method / Collectio n Time Received Time / Laterality Volume 02/01/2012 Narrative This result has an attachment that is no t available. Provider Scan CV ECHO ORDERABLES documented in this encounter Visit Diagnoses Not on filedocumented in this encounter Care Teams Leather Whitener Relationship Specialty Start Date End Date Nas Cardenas MD PCP - General Family Practice 02/01/12 04/12/17 documented as of this encounter
--- OUTSIDE RECORDS SUMMARY | 2022-06-22 09:00 | XMS_ITS | Encounter Summary ---
:1940 Author Organization [place] Address [facility] [place] [address] Care Team Providers Name Role Phone Unavailable Primary Care Provider Unavailable Reason for Visit Reason Comments RECHECK Would like to have some lab work done. Encounter Details Date Type Department Care Team Description [facility]; Clinic [place] XXX RESIGNED XXX OTHER PSORIASIS [address] [place] [address] [place] [address] [place] [phone] (Wo rk) Social History Tobacco Use Types Packs/Day Years Used Date Never Smoker Alcohol Use Standard Drinks/Week Comments Yes 0 (1 standard drink = 0.6 oz pure alcoho l) Sex Assigned at Date Recorded Not on file documented as of this encounter Last Filed Vital Signs Vital Sign Reading Time Taken Comments Blood Pressure 114/80 04/25/2004 9:15 AM CDT Pulse 80 04/25/2004 9:15 AM CDT Temperature - - Respiratory Rate - - Oxygen Saturation - - Inhaled Oxygen Concentration - - Weight 137.9 kg (304 lb) 04/25/2004 9:15 AM CDT Height - - Body Mass Index - - documented in this encounter Progress Notes 04/25/2004 9:15 AM CDT CC: Haris Villa is a 63 year old male who presents for follow up lipid eval. and labs. Patient Changed Clinics due to Insurance reasons-I had Cardiac Bypass surgery at age 45. 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 he is also requesting evaluation of A Skin rash. 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 HEENT: Head without trauma. Conjunctiva clear. Nasal mucosa Normal in appearance. Throat -Normal. Scant, clear post-nasal drip noted. No tenderness over maxillary sinuses. NECK: Supple. No anterior lymph nodes palpable. No posterior nodes. LUNGS: Clear to auscultation and percussion bilaterally. CV: Regular rate and rhyt hm. No murmur. GI: Abdomen soft, non-tender. Non-distended. Normoactive bowel movements. skin-Scaly s ilver rash on extensor surfaces of left arm involving elbow, forearm and hand ASSESSMENT AND PLAN: Hyperlipidemia continue current medication regimen unchanged Rash-psorasis See Epic orders documented in this encounter Plan of Treatment Upcoming Encounters Date Type Specialty Care Team Description 06/26/2022 Ancillary Procedure Cardiology Seng Canchola MD [address] [place] [id number] (Wo rk) 08/16/2022 Ancillary Procedure Cardiology Timothy Smith MD [address] [place] [id number] (Wo rk) 08/16/2022 Office Visit Cardiology Timothy Smith MD [address] [place] [id number] (Fiorella rk) documented as of this encounter Procedures Procedure Name Priority Date/Time Associated Comments Diagnosis HCL COMPREHENSIVE Routine 04/25/2004 9:47 AM Mixed Resu lts for this METABOLIC PANEL CDT Hyperlipidemia procedure are in Other Psoriasis the results section. CL AFF A.M.A. LIPID Routine 04/25/2004 9:47 AM Mixed Re sults for this PANEL CDT Hyperlipidemia procedure are in Other Psoriasis the results section. documented in this encounter Results (ABNORMAL) A.M.A. LIPID PANEL (04/25/2004 9:47 AM CDT) athologist Signature Cholesterol 184 <200 mg/dL [facility] Comment: Cholesterol Reference Range: <200 ??The NCEP recommends further ? evaluation of: ? 1. ??Patients with cholesterol ? greater than 200 mg/dL ? if additional risk facto rs ? are present. ? 2. ??All patients with a ? cholesterol greater than ? 240 mg/dL. Triglycerides 172 (H) <150 mg/dL [facility] HDL Cholesterol 37 (L) >40 mg/dL [facility] LDL Cholesterol Calculated 113 0 - 129 mg/dL [facility] VLDL-Cholesterol 34 (H) 0 - 30 mg/dL [facility] Cholesterol/HDL Ratio 5.0 0.0 - 5.0 [facility] Specimen Anatomical Collection Method Collection Time Receive d Time (Source) Location / / Volume Laterality 04/25/2004 9:47 AM 4 9:52 CDT AM CDT Kannan Flores MD LABORATORY Performing Organization Address City/State/ZIP Code Phon e Number [facility] [address] [place] [address] [facility] (ABNORMAL) A.M.A. COMPREHENSIVE MET.PANEL (04/25/2004 9:47 AM CDT) athologist Signature Sodium 138 133 - 144 [facility] mmol[facility]L [facility] Potassium 4.1 3.4 - 5.3 [facility] mmol/L [facility] Chloride 105 94 - 109 [facility] mmol/L [facility] Carbon Dioxide 28 20 - 32 [facility] mmol/L [facility] Anion Gap 5 (L) 6 - 17 [facility] mmol/L [facility] Glucose 98 60 - 115 [facility] mg/dL [facility] Urea Nitrogen 22 7 - 30 [facility] mg/dL [facility] Creatinine 0.80 0.80 - [facility] 1.50 mg/dL [facility] GFR Estimate >80 >60 [facility] mL/min/1.7 [facility] m2 GFR Estimate If >80 >60 [facility] Black mL/min/1.7 [facility] m2 Calcium 9.0 8.5 - 10.4 [facility] mg/dL [facility] Bilirubin Total 0.5 0.2 - 1.3 [facility] mg/dL [facility] Albumin 3.7 3.2 - 4.5 [facility] g/dL [facility] Protein Total 7.1 6.0 - 8.2 [facility] g/dL [facility] Alkaline 66 40 - 150 [facility] Phosphatase U/L [facility] ALT 52 0 - 70 U/L [facility] AST 40 0 - 55 U/L [facility] Specimen Anatomical Collection Method Collection Time Receive d Time (Source) Location / / Volume Laterality 04/25/2004 9:47 AM 9:52 CDT AM CDT Kannan Flores MD LABORATORY Performing Organization Address City/State/ZIP Code Phon e Number [facility] [address] [place] [address] [facility] documented in this encounter Visit Diagnoses Diagnosis Mixed hyperlipidemia Other psoriasis documented in this encounter
== END 2022-06-22 08:48 | disposition home or self-care (01) ==
LOC: CT 08:49
PROVIDERS: PCP Family Medicine; Visit Provider Otolaryngology
DX: R43.0 Anosmia (principal); J32.0 Chronic maxillary sinusitis; J34.2 Deviated nasal septum; K04.8 Radicular cyst
CPT/HCPCS: 70486

== ENCOUNTER 2022-07-19 08:15 | Outpatient (CLI) | payer MEDICARE, BC, SELFPAY ==
--- OUTSIDE RECORDS SUMMARY | 2022-07-19 08:18 | XMS_ITS | Clinical Summary ---
:1940 Author Organization [facility] [place] [address] Care Team Providers Name Role Phone Unavailable Primary Care Provider Unavailable Allergies No known active allergies Medications Medication Sig Dispensed Refills Start End Date Status Date blood-glucose meter Dispense 1 Device 0 Active glucose 3 meter, test strips and lancets covered by the patient insurance. Test 3 times per day. lancets Dispense 200 Each 1 Active lancets 5 covered by pt ins. 250.00 NIDDM type II - Test 2 times/day. Reason: High A1C tests [address] 0.4 mg 0 Act mike (NITROSTAT) 0.4 mg under the sublingual tablet tongue every 5 minutes if needed for Chest Pain. biotin 5,000 mcg Take 5,000 0 Ac tive TbDi mcg by mouth 9 once daily. tamsulosin (FLOMAX) Take 0.4 mg 0 Active 0.4 mg capsule by mouth once 9 daily after a meal. omeprazole Take 20 mg by 0 Activ e (PRILOSEC) 20 mg mouth 2 times 1 Delayed-Release daily before capsule meals. metFORMIN Take 2 360 Tablet 3 Active (GLUCOPHAGE) 500 mg Tablets 1 tabletIndications: (1,000 mg) by Controlled type 2 mouth 2 times diabetes mellitus daily with with complication, meals. without long-term current use of insulin (HC) furosemide (LASIX) Take 1 Tablet 90 Tablet 2 Active 40 mg (40 mg) by 1 tabletIndications: mouth every Bilateral lower morning. extremity edema glimepiride (AMARYL) TAKE 1 TABLET 180 Tablet 3 Active 2 mg TWICE A DAY 1 tabletIndications: Controlled type 2 diabetes mellitus with complication, without long-term current use of insulin (HC) fenofibrate 160 mg TAKE ONE 90 Tablet 0 A ctive tabletIndications: TABLET BY 2 Hyperlipidemia, MOUTH EVERY unspecified DAY WITH A hyperlipidemia type MEAL blood sugar Dispense item 200 Each 3 Acti ve diagnostic (Contour covered by pt 2 Next Test Strips) ins. 2 x stripIndications: daily Controlled type 2 Dispense item diabetes mellitus covered by pt with complication, ins. without long-term current use of insulin (HC) amiodarone Take 200 mg 0 Active (CORDARONE) 200 mg by mouth once tablet daily. metOLazone Take 2.5-5 mg 0 Activ e (ZAROXOLYN) 2.5 mg by mouth once tablet daily. Alternate 2.5 mg and 5 mg every other day apixaban (ELIQUIS) Take 1 Tablet 60 Tablet 2 Active 2.5 mg (2.5 mg) by 2 tabletIndications: mouth 2 times prevent daily. thromboembolism in chronic atrial fibrillation oxyCODONE Take 0.5 10 Tablet 0 Active (ROXICODONE) 5 mg Tablets (2.5 2 immediate release mg) by mouth tabletIndications: every 6 hours Lumbar radicular if needed for pain Pain. metoprolol succinate Take 0.5 30 Tablet 2 Active (TOPROL XL) 25 mg Tablets (12.5 2 Sustained-Release mg) by mouth tabletIndications: once daily. Typical atrial flutter (HC) atorvastatin TAKE ONE 30 Tablet 0 Active (LIPITOR) 20 mg TABLET BY 2 tabletIndications: MOUTH EVERY Hyperlipidemia, DAY unspecified hyperlipidemia type acyclovir (ZOVIRAX) TAKE ONE 21 Tablet 0 Active 400 mg TABLET BY 2 tabletIndications: MOUTH THREE Recurrent cold sores TIMES A DAY NEEDED FOR COLD SORES acyclovir (ZOVIRAX) TAKE ONE 90 Tablet 0 07/05/20 Discontinued 400 mg TABLET BY 1 22 (Reorder tabletIndications: MOUTH THREE (E-cancel not Recurrent cold sores TIMES A DAY sent)) NEEDED FOR COLD SORES Active Problems Problem Noted Date Acute respiratory failure with hypoxia and hypercapnia 02/22/2022 Hemorrhagic shock 02/22/2022 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 [...] - ocular 10/12/2016 Coronary artery disease involving [place] coronary [place] ry of [place] heart 02/11/2016 without angina pectoris Lumbar foraminal [...] Encounters Date Type Specialty Care Team Description 07/05/2022 Refill Slava Hernandez PA Refil l Request (acyclovir) from Last 3 Months Immunizations Name Administration Dates Next Due COVID-19 vaccine (OneWed (Formerly Nearlyweds) 12/04/2020, 11/13/2020 30mcg/0.3mL) PF, MDV Influenza Virus, [...] 06/07/2021 06/07/2011, 06/07/2011, 09/29/2002, Additional history exists COVID-19 vaccine series (5 - 03/16/2022 01/19/2022, 021, Booster for Pfizer series) 12/04/2020, Additiona l history exists Influenza for age 65+ 06/01/2022 06/24/2020, 08/15/2019, 07/03/2019, Additional history exists BMI (ht and wt on same day) for 06/20/2022 06/20/2021, 09/01, age 18+ 06/24/2020, Additional history exists Medicare Wellness for age 65+ 06/20/2022 06/20/2021, 2019 Depression screening for age 12+ 06/21/2022 06/21/2021, , 11/03/2019, Additional history exists Pneumococcal series for age 65+ Completed 10/18/2015, 05/02, 07/07/2005, Additional history exists Results Not on filefrom Last 3 Months Insurance Payer Benefit Plan / Subscriber ID Effective Dates Phone Addre ss Type Group MEDICARE PART B MEDICARE PART B [id number] 2003-Prese ATTN: CLAIMS - HB USE ONLY HB ONLY nt [address] [place] [address] MEDICARE PART A MEDICARE PART A [id number] 2003-Prese ATTN: CLAIMS - HB USE ONLY HB ONLY nt [address] [facility] [place] [address] BLUE CROSS BLUE CROSS [id number] 2016-[place]en [address] [address] [address] [facility], [place] ONLY [id number] BLUE CROSS MR BLUE CROSS [id number] 2016-Eber [place] [address] [address] [employer], [place] MR PB ONLY [id number] [facility]/Tamiko Other 10/01/[address] [facility] [place] (Work) [address] [place] [address] Advance Directives Latest Code Status on File Code Status Date Activated Date Inactivated Comments Full Code 02/22/2022 2:53 PM 03/02/2022 1:31 PM Code Status Discussion: Reviewed Preferences Full Code 02/21/2022 4:37 PM 02/22/2022 2:53 PM Code Status Discussion: Unable to Assess Preferences, Provid er to review later
--- OUTSIDE RECORDS SUMMARY | 2022-07-19 08:18 | XMS_ITS | Clinical Summary ---
:1940 Author Organization [facility] Address [address] [facility] [place] [address] Care Team Providers Name Role Phone Timothy [...] Coronary artery disease needed for chest involving paimiut pain coronary artery of paimiut heart without angina pectoris metoprolol succinate ER [...] 04/25/2004 Overview: Problem list name updated by automated p rocess. Provider to review Atrial flutter Sleep apnea Coronary artery disease A-fib Encounters Date Type Specialty Care Team Description 06/26/2022 Ancillary Procedure Cardiology Steven Canchola Ca rdiac pacemaker in MD Jose situ 05/29/2022 Documentation Only Cardiology Catherine Aranda LPN Medication Question (Re eliquis dos e) 05/03/2022 Telephone Cardiology Timothy Smith MD Orders (Cardi ac device check in-clinic/ Exte nd order ) 05/03/2022 Travel 05/01/2022 Telephone Cardiology [...] Tobacco Use Types Packs/Day Years Used Date Smoking Tobacco: Never Smokeless Tobacco: Never Alcohol Use Standard Drinks/Week Comments No 0 [...] Encounters Date Type Specialty Care Team Description 08/16/2022 Ancillary Procedure Cardiology Timothy Smith MD [address] [place] [id number] (Wo rk) 08/16/2022 Office Visit Cardiology Timothy Smith MD [address] [place] [id number] (Wo rk) Health Maintenance Due Date Last Done Comments ADVANCE CARE PLANNING 1940 ANNUAL REVIEW OF HM ORDERS 1940 DIABETIC FOOT EXAM 1940 EYE EXAM 1940 MICROALBUMIN 1940 FALL RISK ASSESSMENT 2003 ZOSTER IMMUNIZATION (2 of 08/26/2014 07/01/2014 3) LIPID 02/02/2017 02/03/2016, 04/25/2004 A1C 09/19/2021 06/20/2021, 02/03/2016, 02/02/2012, Additional history exists PHQ-2 (once per calendar 10/01/2021 year) BMP 01/02/2022 07/04/2021, 02/03/2019, 01/22/2019, Additional history exists COVID-19 Vaccine (5 - 03/16/2022 01/19/2022, 07/14/2021, Booster for Pfizer series) 12/04/2020, Additiona l history exists INFLUENZA VACCINE (#1) 2022 06/28/2021, 06/24/2020, 06/24/2020, Additional history exists MEDICARE ANNUAL WELLNESS 06/20/2022 06/20/2021 VISIT DTAP/TDAP/TD IMMUNIZATION 08/02/2031 08/02/2021, 06/07/2011 , (3 - Td or Tdap) 06/07/2011, Additional history exists Pneumococcal Vaccine: 65+ Completed 10/18/2015, 05/29/2011 , Years 07/07/2005, Additional history exists IPV IMMUNIZATION Aged Out No longer eligi ble based on patient 's age to complete this topic MENINGITIS IMMUNIZATION Aged Out No longe r eligible based on patient 's age to complete this topic Medical Devices Implanted Type Area Housecleaner Floor Device Shelf Model / Identifier Expiration Serial / Date Lot Icd Resonate El Vr Df4 - [id number] ICD LILY 09/09/2021 D432 / Implanted: Qty: 1 on 07/04/2021 at [facility] [employer] [id number] / [id number] Lead Wires- Right Atrium-02/04/2016 Lead Wires- [employer] MEDICA L 8TC-52 / Implanted: 02/04/2016 by Timothy Smith MD (Quantity not on file) R ight Atrium INC [id number] / Explanted: 07/04/2021 (Quantity not on file) Lead Wires- Right Ventricle-02/04/2016 Lead Wires- [employer] MED ICAL 8TC-58 / Implanted: 02/04/2016 by Timothy Smith MD (Quantity not on file) Right INC [id number] / Explanted: 07/04/2021 (Quantity not on file) Ventricle Lead [place] [employer] Df4 Af 59 Cm 0272 - [id number] Leads LILY 04/07/2023 0272 / Implanted: Qty: 1 on 07/04/2021 at [facility] [employer] [id number] / [id number] Pacemaker-Dino Sci Pacemaker [place] [address] L121 / Implanted: 02/04/2016 by Timothy Smith MD (Quantity not on file) [employer] [place] [id number] / Explanted: 07/04/2021 (Quantity not on file) Procedures Procedure Name Priority Date/Time Associated Comments Diagnosis INTERROGATION DEVICE Routine 06/26/2022 12:55 Cardiac pacemake r Results for this EVAL REMOTE ICD UP TO AM CDT in situ proced ure are in 90 the results section. from Last 3 Months Results INTERROGATION DEVICE EVAL REMOTE ICD UP TO 90 (06/26/2022 12:55 AM CDT) Component Value Ref Test Analysis Performed Pathologis t Range Method Time At Signature Date Time [id number] [employer] Interrogation Session Implantable [place] [employer]ONIC Pulse Generator Housecleaner Floor Implantable D432 RESONATE EL MEDTRONIC Pulse Generator ICD Model Implantable [id number] MEDTRONIC Pulse Generator Serial Number Type Remote MEDTRONIC Interrogation Session Clinic Name [facility] [employer]TRONIC Implantable Defibrillator MEDTRONIC Pulse Generator Type Implantable [id number] MEDTRONIC Pulse Generator Implant Date Implantable Lead [place] [employer] ONIC Housecleaner Floor Implantable Lead 0272 [place] MEDTRONIC Model 4-Site S Implantable Lead [id number] MEDTRONIC Serial Number Implantable Lead [id number] MEDTRONIC Implant Date Implantable Lead Bipolar Lead [...] MEDTRONIC Setting Pacing Pulse Width Lead Channel 2.4 V MEDTRONIC Setting Pacing Amplitude Lead Channel [...] 400 ms [employer]TRONIC Detection Interval Lead Channel 515 ohm MEDTRONIC Impedance Value Lead Channel 1.1 V MEDTRONIC Pacing Threshold Amplitude Lead Channel 0.4 ms MEDTRONIC Pacing Threshold Pulse Width Battery Date [id number] [employer]TRONIC Time of Measurements Battery Status Beginning of MEDTRONIC Service Battery 174 mo MEDTRONIC Remaining Longevity Battery 100 % MEDTRONIC Remaining Percentage Capacitor Charge Reformation MEDTRONIC Type Capacitor Last MEDTRONIC Charge Date Time Capacitor Charge 8.8 s MEDTRONIC Time Capacitor Charge Shock MEDTRONIC Type Capacitor Last MEDTRONIC Charge Date Time Capacitor Charge 6.8 s MEDTRONIC Time Capacitor Charge 41 J MEDTRONIC Energy Brandon Statistic [id number] MEDTRONIC Date Time Start Brandon Statistic [id number] MEDTRONIC Date Time End Brandon Statistic 3 % MEDTRONIC RV Percent Paced Therapy 6 MEDTRONIC Statistic Recent Shocks Delivered Therapy 0 MEDTRONIC Statistic Recent Shocks Aborted Therapy 26 MEDTRONIC Statistic Recent ATP Delivered Therapy [id number] MEDTRONIC Statistic Recent Date Time Start Therapy [id number] MEDTRONIC Statistic Recent Date Time End Therapy 6 MEDTRONIC Statistic Total Shocks Delivered Therapy 0 MEDTRONIC Statistic Total Shocks Aborted Therapy 34 MEDTRONIC Statistic Total ATP Delivered Therapy [id number] MEDTRONIC Statistic Total Date Time End Episode [...] VT-1 MEDTRONIC Statistic Vendor Type Category Episode [id number] MEDTRONIC Statistic Recent Date Time Start Episode [id number] [employer]TRONIC Statistic Recent Date Time End Episode [id number] MEDTRONIC Statistic Recent Date Time Start Episode [id number] MEDTRONIC Statistic Recent Date Time End Episode [id number] MEDTRONIC Statistic Recent Date Time Start Episode [id number] MEDTRONIC Statistic Recent Date Time End Episode [id number] MEDTRONIC Statistic Recent Date Time Start Episode [id number] MEDTRONIC Statistic Recent Date Time End Episode [id number] [employer]TRONIC Statistic Recent Date Time Start Episode [id number] MEDTRONIC Statistic Recent Date Time End Episode APM-195 MEDTRONIC Identifier Episode Type Periodic EGM MEDTRONIC Category Episode Date [id number] MEDTRONIC Time Episode [id number]-[id number] [employer]TRONIC Identifier Episode Type Other MEDTRONIC Category Episode Date [id number] MEDTRONIC Time Anatomical Region Laterality Modality Other Specimen (Source) Anatomical Collection Method Collection Time Re ceived Time Location / / Volume Laterality 06/26/2022 12:55 AM CDT Narrative 06/27/2022 11:01 AM CDT [place] [employer] Resonate (S) ICD Remote Device Check TREE CLIMBER: 3% Mode: VVIR 50-130 ppm Presenting Rhythm: Heart Rate: Histogram shows good variabi lity with rates primarily 50-120's Sensing: Stable Pacing Threshold: WNL Impedance: WNL Battery Status: Estimated 14.5 years Atrial Arrhythmia: 0 Ventricular Arrhythmia: 0 ATP: 0 Shocks: 0 HeartLogic: 3 Care Plan: ??Pt has scheduled appt with Dr Smith and in-clinic device check ?? 08/16/22. ??Pt updated of results via val singh and confirmed his appointments. SIENNA Domingo I have reviewed and interpreted the agustín ce interrogation, settings, programming and nurse's summary. The dev ice is functioning within normal device parameters. I agree with the curr ent findings, assessment and plan. Steven Canchola MD [facility] from Last 3 Months Insurance Payer Benefit Plan / Subscriber ID Effective Phone Address T ype Group Dates MEDICARE MEDICARE FOR HB [id number] 2003-Pres [phone] ATTN CLAIMS Medicare SUPPLEMENT ent 40 [address] [place] [address] BCBS BCBS MI'[id number] 2016-Prese [phone] [address] [address] [place] [address] (Home) [place] [phone] [address] (Work) Advance Directives For more information, please contact: [phone] Latest Code Status on File Code Status Date Activated Date Inactivated Comments Full Code 02/04/2016 9:52 AM 07/04/2021 11:49 AM Code Status History Code Status Date Activated Date Inactivated Comments Full Code 02/02/2016 9:20 PM 02/04/2016 9:52 AM Full Code 02/01/2012 2:37 PM 02/04/2012 6:16 PM Care Teams Dramatic Reader Relationship Specialty Start Date End Date Graham Licona MD PCP - General Family Medicine 06/30/21 [facility] [address] [place] [address] Timothy Smith MD Assigned Heart and Vascular 07/23/[address] Provider [place] [id number]
--- OUTSIDE RECORDS SUMMARY | 2022-07-19 08:19 | XMS_ITS | Encounter Summary ---
:1940 Author Organization [facility] Address [address] [facility] [address] Care Team Providers Name Role Phone Timothy Smith MD Unavailable Graham Licona MD Primary Care Provider Reason for Visit Reason Onset Date Comments fax clearance 02/14/2022 Needs cardiac cleara nce for 02/21/22 surgery Encounter Details Date Type Department Care Team Description 02/14/2022 Telephone [facility] Heart Zarina Smith MD fax clearance ([facility] [place] [address] cardiac clearance for [address] 02/21/22 surgery) [facility] [address] [place] [address] [place] [phone] Social History Tobacco Use Types Packs/Day Years [...] 02/14/2022 4:23 PM CDT Second request from [facility] for cardiac clearance letter requested to be faxed [phone]. Fax sent. JNelsonRN Telephone Encounter - Temitope Tamayo RN - 02/14/2022 2:14 PM CDT Faxed over to [facility] signed letter from Dr Smith that patient is cleared for hip surgery scheduled for 02/21. Signed letter sent to [facility] to scan. SIENNA Okeefe Telephone Encounter - Timothy Smith MD - 02/14/2022 1:13 PM CDT YES Telephone Encounter - Anel Corado - 02/14/2022 9:41 AM CDT [facility] Phone Message May a detailed message be left on voicemail: yes Reason for Call: Other: [facility] calling in stating that pt is having hip surgery on 02/21/22 and they are needing a letter for cardiac clearance faxed over to them at [phone]. Action Taken: Message routed to: Other: ru cardio Travel Screening: Not Applicable documented in this encounter Plan of Treatment Upcoming Encounters Date Type Specialty Care Team Description 08/16/2022 Ancillary Procedure Cardiology Timothy Smith MD [address] [place] [id number] (Wo rk) 08/16/2022 Office Visit Cardiology Timothy Smith MD [address] [place] [id number] (Wo rk) documented as of this encounter Visit Diagnoses Not on filedocumented in this encounter Care Teams Central Office Maintainer Relationship Specialty Start Date End Date Graham Licona MD PCP - General Family Medicine 06/30/21 [facility] [address] [place] [address] Timothy Smith MD Assigned Heart and Vascular 07/23/20 [address] Provider [place] [id number] documented as of this encounter
--- OUTSIDE RECORDS SUMMARY | 2022-07-19 08:19 | XMS_ITS | Encounter Summary ---
:1940 Author Organization [facility] Address [address] [facility] [facility] [place] [address] Care Team Providers Name Role Phone Timothy Smith MD Unavailable Graham Licona MD Primary Care Provider Reason for Referral Consultation (Routine: Next available opening) - Pending Review Specialty Diagnoses / Procedures Referred By Contact Refer red To Contact Cardiovascular Disease Diagnoses Paroxysmal ventricular tachycardia Timothy Smith MD [address] [place] [address] Referral ID Status Reason Start Date Expiration Date Visits V isits Requested Authorized [id number] Pending 02/08/2022 02/08/2023 1 1 Review iagnostic Imaging XR (Routine) - Pending Review Specialty Diagnoses / Procedures Referred By Contact Refer red To Contact Diagnoses Paroxysmal ventricular tachycardia Timothy Smith MD Procedures XR Chest [address] [place] [address] Referral ID Status Reason Start Date Expiration Date Visits V isits Requested Authorized [id number] Pending 02/08/2022 02/08/2023 1 1 Review Reason for Visit Reason Comments Annual Visit Annual f/up (Routine) - Closed Specialty Diagnoses / Procedures Referred By Contact Refer red To Contact Diagnoses Sustained VT (ventricular tachycardia) Timothy Smith MD [address] [place] [address] Referral ID Status Reason Start Date Expiration Date Visits Requ ested Visits Authorized [id number] Closed 03/23/2021 03/23/2022 1 1 Encounter Details Date Type Department Care Team Description 02/08/2022 Office Visit [facility] Timothy Smith MD Persistent atrial fibrillation (H) (Prim arnie Dx); [facility] [address] Paroxy smal ventricular tachycardia (H) [facility] [address] [address] [place], [place] [address] [address] [place], [place] (Work) [phone] Social History Tobacco Use [...] 6 months. 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 EP PACEMAKER 02/04/2016 [facility] ??? HC [...] Other Topics Concern ??? Parent/sibling w/ CABG, MT or angioplasty before 65F 55M? No ??? [...] Oriented x 3 CC Timothy Smith MD [address] [place] [id number] documented in this encounter Plan of Treatment Upcoming Encounters Date Type Specialty Care Team Description 08/16/2022 Ancillary Procedure Cardiology Timothy Smith MD [address] [place] [phone] (Fiorella olvera) 08/16/2022 Office Visit Cardiology Timothy Smith MD [address] [place] [phone] (Fiorella olvera) Scheduled Orders Name Type Priority Associated Diagnoses [...] (H) - Ria jing Atrial fibrillation Paroxysmal ventricular tachycardia documented in this encounter Care Teams Junior Accountant Bookkeeper Relationship Specialty Start Date End Date Graham Licona MD PCP - General Family Medicine 06/30/21 [facility] [address] [place] [address] Timothy Smith MD Assigned Heart and Vascular 07/23/20 [address] Provider [place] [phone] documented as of this encounter
--- OUTSIDE RECORDS SUMMARY | 2022-07-19 08:19 | XMS_ITS | Encounter Summary ---
:1940 Author Organization [place] Address [address] [facility] [place] [address] Care Team Providers Name Role Phone Timothy Smith MD Unavailable Graham Licona MD Primary Care Provider Encounter Details Date Type Department Care Team Description 01/30/2022 [facility] Sandrine Whitman bryn [facility] Care [address] [facility] [address] [place] [address] Social History Tobacco Use Types [...] were not included. Alert received from patients [place] [employer] single chamber ICD for ATP therapy [...] V rates of 180-190bpm. Patient presented to [facility] on 01/27/22 after receiving shocks from ICD.Patient [...] [address] [place] [id number] (Wo wade) 08/16/2022 Office Visit Cardiology Timothy Smith MD [address] [place] [address] (Wo rk) documented as of this encounter Visit Diagnoses Diagnosis Sustained VT (ventricular tachycardia) - Primary Paroxysmal ventricular tachycardia documented in this encounter Care Teams Finance Executive Relationship Specialty Start Date End Date Graham Licona MD PCP - General Family Medicine 06/30/21 [facility] [address] [place] [address] Timothy Smith MD Assigned Heart and Vascular 07/23/[address] Provider [place] [address] documented as of this encounter
--- OUTSIDE RECORDS SUMMARY | 2022-07-19 08:19 | XMS_ITS | Encounter Summary ---
:1940 Author Organization [facility] Address [address] [place] [address] Care Team Providers Name Role Phone Timothy Smith MD Unavailable Graham Licona MD Primary Care Provider Encounter Details Date Type Department Care Team Description 03/20/2022 [facility] Janeth Huizar RN [facility] Heart [address] [place] [address] Social History Tobacco Use Types [...] day. Pt requested script be sent to [facility] [employer] Mail service in [place], [place]. Will escribe this. Pt will call if he has any adverse reactions to this medication switch. Telephone Encounter - Timothy Smith MD - 03/21/2022 3:40 PM CDT OK to keep current dose of metoprolol. Telephone Encounter - Charito Huizar RN - 03/21/2022 10:52 AM CDT Is he to continue the Metoprolol as well? Pt was told by hospitalist at [facility] to take 1/2 of 25mg (12.5mg) Toprol [...] reports he was in the hospital at [facility]. He reports he was discharged on Metoprolol [...] Attempted to reach Dr. Shaikh SANTANA at [facility] but prescribing MD was a hospitalist and he is unavailable. Per his note on 02/21/22: CHANGE how you take these medicines Instructions [...] [address] [place] [id number] (Wo wade) 08/16/2022 Office Visit Cardiology Timothy Smith MD [address] [place] [phone] (Fiorella olvera) documented as of this encounter Visit Diagnoses Diagnosis Sustained VT (ventricular tachycardia) - Primary Paroxysmal ventricular tachycardia documented in this encounter Care Teams Branch Library Clerk Relationship Specialty Start Date End Date Graham Licona MD PCP - General Family Medicine 06/30/21 [facility] [address] [place] [address] Timothy Smith MD Assigned Heart and Vascular 07/23/20 [address] Provider [place] [phone] documented as of this encounter
--- OUTSIDE RECORDS SUMMARY | 2022-07-19 08:19 | XMS_ITS | Encounter Summary ---
:1940 Author Organization [facility] Address [address] [facility] [place] [address] Care Team Providers Name Role Phone Timothy Smith MD Unavailable Graham Licona MD Primary Care Provider Reason for Visit Reason Comments Medication Question Re eliquis dose Encounter Details Date Type Department Care Team Description 05/29/2022 Documentation Only [facility] Catherine Aranda edication Question [facility] Patt Crenshaw LPN (Re eliquis dose) [address] [facility] [address] [place] [phone] Social History Tobacco [...] that his remote device check is sched 9-26-22, and next EP visit with Dr Smith is 08-16-22 Pt verbalized his understanding and agreement yvette cummins documented in this encounter Plan of Treatment Upcoming Encounters Date Type Specialty Care Team Description 08/16/2022 Ancillary Procedure Cardiology Timothy Smith MD [address] [place] [address] (Wo rk) 08/16/2022 Office Visit Cardiology Timothy Smith MD [address] [place] [phone] (Wo rk) documented as of this encounter Visit Diagnoses Not on filedocumented in this encounter Care Teams Literary Writer Relationship Specialty Start Date End Date Graham Licona MD PCP - General Family Medicine 06/30/[address] [facility] [address] [place] [address] Timothy Smith MD Assigned Heart and Vascular 07/23/20 [address] Provider [place] [id number] documented as of this encounter
--- OUTSIDE RECORDS SUMMARY | 2022-07-19 08:19 | XMS_ITS | Encounter Summary ---
:1940 Author Organization [facility] Address [address] [facility] [place] [address] Care Team Providers Name Role Phone Timothy [...] contact Unable to assess 12/02/2021 12:08 PM MAKEUP EDITOR with someone who was confirmed or suspected to have Coronavirus / COVID-19? documented as of this encounter Plan of Treatment Upcoming Encounters Date Type Specialty Care Team Description 08/16/2022 Ancillary Procedure Cardiology Timothy Smith MD [address] [place] [phone] (Wo rk) 08/16/2022 Office Visit Cardiology Timothy Smith MD [address] [place] [phone] (Wo rk) documented as of this encounter Visit Diagnoses Not on filedocumented in this encounter Care Teams Box Finisher Relationship Specialty Start Date End Date Graham Licona MD PCP - General Family Medicine 06/30/21 [facility] [address] [place] [address] Timothy Smith MD Assigned Heart and Vascular 07/23/20 [address] Provider [place] [address] documented as of this encounter
--- OUTSIDE RECORDS SUMMARY | 2022-07-19 08:19 | XMS_ITS | Encounter Summary ---
:1940 Author Organization [place] Address [address] [place] [address] Care Team Providers Name Role Phone Timothy Smith MD Unavailable Graham Licona MD Primary Care Provider Reason for Visit CV Testing (Routine) - Closed Specialty Diagnoses / Procedures Referred By Contact Refer red To Contact Diagnoses Cardiac pacemaker in situ Chris De Leon MD Procedures Cardiac Device Check - Remote (Post implant follow up) [address] [place] [id number] Referral ID Status Reason Start Date Expiration Date Visits Requ ested Visits Authorized [id number] Closed 07/05/2021 07/05/2022 1 1 Encounter Details Date Type Department Care Team Description 11/23/2021 Ancillary Procedure [facility] Chris De Leon, Cardiac pacemaker in [facility] situ Heart Care [address] [facility] [address] [place] [address] [place] [address] [phone] Social History Tobacco Use Types Packs/Day Years [...] [address] [place] [id number] (Wo rk) 08/16/2022 Office Visit Cardiology Timothy Smith MD [address] [place] [id number] (Wo rk) documented as of this encounter Procedures Procedure Name Priority Date/Time Associated Comments Diagnosis INTERROGATION DEVICE Routine 11/24/2021 1:06 PM Cardiac pacema ker Results for this EVAL REMOTE ICD UP TO CROZE MACHINE OPERATOR in situ proced ure are in 90 the results section. documented in this encounter Results INTERROGATION DEVICE EVAL REMOTE ICD UP TO 90 (11/24/2021 1:06 PM CROZE MACHINE OPERATOR) Component Value Ref Test Analysis Performed [employer] t Range Method Time At Signature Date Time [id number] [employer]IC Interrogation Session Implantable [place] [employer]IC Pulse Generator Cone Classifier Tender Implantable D432 RESONATE EL MEDTRONIC Pulse Generator ICD Model Implantable [id number] MEDTRONIC Pulse Generator Serial Number Type Remote MEDTRONIC Interrogation Session Clinic Name [facility] [employer]IC Implantable Defibrillator MEDTRONIC Pulse Generator Type Implantable [id number] MEDTRONIC Pulse Generator Implant Date Implantable Lead [place] [employer] Cone Classifier Tender Implantable Lead [address] [place] MEDTRONIC Model 4-Site S Implantable Lead [id number] MEDTRONIC Serial Number Implantable Lead [id number] MEDTRONIC Implant Date Implantable Lead Bipolar Lead [...] Capacitor Charge Reformation MEDTRONIC Type Capacitor Last [id number] MEDTRONIC Charge Date Time Capacitor Charge 9.1 s MEDTRONIC Time [place] Statistic [id number] MEDTRONIC Date Time Start Brandon Statistic [id number] MEDTRONIC Date Time End Brandon Statistic 3 % MEDTRONIC RV Percent Paced Therapy 0 MEDTRONIC Statistic Recent Shocks Delivered Therapy 0 MEDTRONIC Statistic Recent Shocks Aborted Therapy 0 MEDTRONIC Statistic Recent ATP Delivered Therapy [id number] MEDTRONIC Statistic Recent Date Time Start Therapy [id number] MEDTRONIC Statistic Recent Date Time End Therapy 0 MEDTRONIC Statistic Total Shocks Delivered Therapy 0 MEDTRONIC Statistic Total Shocks Aborted Therapy 8 MEDTRONIC Statistic Total ATP Delivered Therapy [id number] MEDTRONIC Statistic Total Date Time End Episode [...] VT-1 MEDTRONIC Statistic Vendor Type Category Episode [id number] MEDTRONIC Statistic Recent Date Time Start Episode [id number] MEDTRONIC Statistic Recent Date Time End Episode [id number] MEDTRONIC Statistic Recent Date Time Start Episode [id number] MEDTRONIC Statistic Recent Date Time End Episode [id number] MEDTRONIC Statistic Recent Date Time Start Episode [id number] MEDTRONIC Statistic Recent Date Time End Episode [id number] MEDTRONIC Statistic Recent Date Time Start Episode [id number] MEDTRONIC Statistic Recent Date Time End Episode [id number] MEDTRONIC Statistic Recent Date Time Start Episode [id number] MEDTRONIC Statistic Recent Date Time End Episode APM-55 MEDTRONIC Identifier Episode Type Periodic EGM MEDTRONIC Category Episode Date MEDTRONIC Time Episode RVAT-160 MEDTRONIC Identifier Episode Type Other MEDTRONIC Category Episode Date [id number] [employer]TRONIC Time Anatomical Region Laterality Modality Other Specimen (Source) Anatomical Collection Method Collection Time Re ceived Time Location / / Volume Laterality 11/23/2021 12:40 AM CROZE MACHINE OPERATOR Narrative 12/04/2021 10:04 AM CROZE MACHINE OPERATOR [employer] [place] Resonate (S) ICD Remote Device Check BOX CAR CHECKER: 3 % ?? Mode: VVIR 50-130 ?? [...] patient and revie wed results and plan. Cici, SIENNA I have reviewed and interpreted the agustín ce interrogation, settings, programming and nurse's summary. The dev ice is functioning within normal device parameters. I agree with the curr ent findings, assessment and plan. Chris Hinds MD CV CARDIAC SERVICES ORDERABL ES documented in this encounter Visit Diagnoses Diagnosis Cardiac pacemaker in situ documented in this encounter Care Teams Car Rider Relationship Specialty Start Date End Date Graham Licona MD PCP - General Family Medicine 06/30/21 [facility] [address] [place] [address] Timothy Smith MD Assigned Heart and Vascular 07/23/[address] Provider [place] [address] documented as of this encounter
--- OUTSIDE RECORDS SUMMARY | 2022-07-19 08:19 | XMS_ITS | Encounter Summary ---
:1940 Author Organization [place] Address [address] [facility] [place] [address] Care Team Providers Name Role Phone Timothy Smith MD Unavailable Graham Licona MD Primary Care Provider Encounter Details Date Type Department Care Team Description 12/09/2021 [facility] Keyshawn Myers RN [facility] Heart [address] [place] [address] Social History Tobacco Use Types Packs/Day Years Used Date Smoking Tobacco: Never Smokeless Tobacco: Never Alcohol Use Standard Drinks/Week Comments No 0 (1 standard drink = 0.6 oz pure alcoho l) Sex Assigned at Date Recorded Not on file COVID-19 Exposure Response Date Recorded In the last month, have you been in contact Unable to assess 12/02/2021 12:08 PM DESK PEN SET ASSEMBLER with someone who was confirmed or suspected [...] diuretic dosage. Janny appreciative for the information. PEN SET ASSEMBLER Telephone Encounter - Kitty Myers, RN - 12/09/2021 9:20 AM CST Remote [...] Patient states understanding and agreement with plan. PEN SET ASSEMBLER documented in this encounter Plan of Treatment Upcoming Encounters Date Type Specialty Care Team Description 08/16/2022 Ancillary Procedure Cardiology Timothy Smith MD [address] [place] [id number] (Wo rk) 08/16/2022 Office Visit Cardiology Timothy Smith MD [address] [place] [address] (Wo rk) documented as of this encounter Visit Diagnoses Not on filedocumented in this encounter Care Teams Knife Finisher Relationship Specialty Start Date End Date Graham Licona MD PCP - General Family Medicine 06/30/21 [facility] [address] [place] [address] Timothy Smith MD Assigned Heart and Vascular 07/23/20 [address] Provider [place] [address] documented as of this encounter
--- OUTSIDE RECORDS SUMMARY | 2022-07-19 08:19 | XMS_ITS | Encounter Summary ---
:1940 Author Organization [place] Address [address] [address] Care Team Providers Name Role Phone Timothy Smith MD Unavailable Graham Licona MD Primary Care Provider Reason for Visit Reason Onset Date Comments Implantable Devices 09/12/2021 [facility]Logic alert Encounter Details Date Type Department Care Team Description 09/12/2021 Telephone [facility] Sintia Muhammad, Impl antable Devices [facility] RN (HeartLog ic alert) Heart Care [address] [place] [address] [place] [phone] Social History Tobacco Use Types Packs/Day Years Used Date Smoking Tobacco: Never Smokeless Tobacco: Never Alcohol Use Standard Drinks/Week Comments No 0 (1 standard drink = 0.6 oz pure alcoho l) Sex Assigned at Date Recorded Not on file COVID-19 Exposure Response Date Recorded In the last month, have you been in contact with No / Unsure 08/24/2021 10:48 AM BPM ANALYST someone who was confirmed or suspected to [...] night heart rate. Patient was contacted on 09/12/[address] Smith was instructed to follow- up with his PMD for evaluation and diuretic titration if needed. If that does not work, then CORE clinic was recommended. Called and spoke with Guillermo who stated that he saw his PMD and they adjusted his diuretics. He has lost 12 pounds so far and is feeling much better. He has follow-up with his PMD in 3 weeks to see how everything is going. Will continue to monitor at this time. SIENNA Hatch ANALYST Telephone Encounter - Sintia Muhammad RN - [...] understanding and appreciation for call. SIENNA Hatch ANALYST Telephone Encounter - Timothy Smith MD - 09/13/2021 4:28 PM CST I am not able to manage heart failure with frequent visit. This patient has severe renal insufficiency. The first step may be with his PMD for evaluation and diuretic titration. If that does not work, then CORE clinic is recommended. ANALYST Telephone Encounter - Sintia Muhammad RN - 09/12/2021 12:01 PM CST Images from the original note were not included. [place] ICD remote alert received for HeartLogic at [...] after shehas reviewed the information. SIENNA Hatch ANALYST documented in this encounter Plan of Treatment Upcoming Encounters Date Type Specialty Care Team Description 08/16/2022 Ancillary Procedure Cardiology Timothy Smith MD [address] [place] [id number] (Wo wade) 08/16/2022 Office Visit Cardiology Timothy Smith MD [address] [place] [address] (Wo wade) documented as of this encounter Visit Diagnoses Not on filedocumented in this encounter Care Teams Autocad Draftsman Relationship Specialty Start Date End Date Grhaam Licona MD PCP - General Family Medicine 06/30/21 [facility] [address] [place] [address] Timothy Smith MD Assigned Heart and Vascular 07/23/20 [address] Provider [place] [address] documented as of this encounter
--- OUTSIDE RECORDS SUMMARY | 2022-07-19 08:19 | XMS_ITS | Encounter Summary ---
:1940 Author Organization [place] Address [address] [place] [address] Care Team Providers Name Role Phone Timothy Smith MD Unavailable Graham Licona MD Primary Care Provider Reason for Referral CV Testing (Routine) - Pending Review Specialty Diagnoses / Procedures Referred By Contact Refer red To Contact Diagnoses Cardiac pacemaker in situ Steven Canchola, Procedures Cardiac Device Check - Remote (Standing ORD 4 count) [address] [place] [address] Referral ID Status Reason Start Date Expiration Date Visits V isits Requested Authorized [id number] Pending 03/20/2022 03/20/2023 100 100 Review Reason for Visit CV Testing (Routine) - Pending Review Specialty Diagnoses / Procedures Referred By Contact Refer red To Contact Diagnoses Cardiac pacemaker in situ Steven Canchola, Procedures Cardiac Device Check - Remote [address] [place] [address] Referral ID Status Reason Start Date Expiration Date Visits V isits Requested Authorized [id number] Pending 03/20/2022 03/20/2023 1 1 Review Encounter Details Date Type Department Care Team Description 03/20/2022 [facility] Steven Canchola Card iac pacemaker Procedure [facility] MD Jose in situ Heart Care [address] [place] [address] [place] [phone] (Wo rk) [address] [phone] Social History Tobacco Use Types Packs/Day Years [...] [address] [place] [phone] (Wo rk) 08/16/2022 Office Visit Cardiology Timothy Smith MD [address] [place] [phone] (Wo rk) Scheduled Orders Name Type Priority Associated Order Schedule Diagnoses Cardiac Device Implantable Cardiac Routine Cardiac pacemaker 1 00 Occurrences Check - Remote Device in situ starting 03/02 (Standing ORD 4 until 2032, 1 count) completed documented as of this encounter Procedures [...] Range Method Time At Signature Date Time [id number] [employer]TRONIC Interrogation Session Implantable [employer] [employer] MEDTRONIC Pulse Generator Housing Development Specialist Implantable D432 RESONATE EL MEDTRONIC Pulse Generator ICD Model Implantable [id number] MEDTRONIC Pulse Generator Serial Number Type Remote MEDTRONIC Interrogation Session Clinic Name [facility] [employer]IC Implantable Defibrillator MEDTRONIC Pulse Generator Type Implantable [id number] MEDTRONIC Pulse Generator Implant Date Implantable Lead [employer] ON[employer] Housing Development Specialist Implantable Lead [address] [place] MEDTRONIC Model 4-Site S Implantable Lead 618515 MEDTRONIC Serial Number Implantable Lead [id number] MEDTRONIC Implant Date Implantable Lead Bipolar Lead [...] Capacitor Charge Reformation [employer]IC Type Capacitor Last [id number] MEDTRONIC Charge Date Time Capacitor Charge 8.8 s MEDTRONIC Time Capacitor Charge Shock MEDTRONIC Type Capacitor Last MEDTRONIC Charge Date Time Capacitor Charge 6.8 s MEDTRONIC Time Capacitor Charge 41 J MEDTRONIC Energy Brandon Statistic [id number] MEDTRONIC Date Time Start Brandon Statistic [id number] MEDTRONIC Date Time End Brandon Statistic 3 % MEDTRONIC RV Percent Paced Therapy 6 MEDTRONIC Statistic Recent Shocks Delivered Therapy 0 MEDTRONIC Statistic Recent Shocks Aborted Therapy 26 MEDTRONIC Statistic Recent ATP Delivered Therapy MEDTRONIC Statistic Recent Date Time Start Therapy [id number] MEDTRONIC Statistic Recent Date Time End Therapy 6 MEDTRONIC Statistic Total Shocks Delivered Therapy 0 MEDTRONIC Statistic Total Shocks Aborted Therapy 34 MEDTRONIC Statistic Total ATP Delivered Therapy 72014308533272 MEDTRONIC Statistic Total Date Time End Episode [...] VT-1 MEDTRONIC Statistic Vendor Type Category Episode [id number] MEDTRONIC Statistic Recent Date Time Start Episode [id number] MEDTRONIC Statistic Recent Date Time End Episode [id number] MEDTRONIC Statistic Recent Date Time Start Episode [id number] MEDTRONIC Statistic Recent Date Time End Episode [id number] MEDTRONIC Statistic Recent Date Time Start Episode [id number] MEDTRONIC Statistic Recent Date Time End Episode [id number] MEDTRONIC Statistic Recent Date Time Start Episode [id number] MEDTRONIC Statistic Recent Date Time End Episode [id number] MEDTRONIC Statistic Recent Date Time Start Episode [id number] MEDTRONIC Statistic Recent Date Time End Episode APM-195 MEDTRONIC Identifier Episode Type Periodic EGM MEDTRONIC Category Episode Date [id number] MEDTRONIC Time Episode RVAT-406 MEDTRONIC Identifier Episode Type Other MEDTRONIC Category Episode Date [id number] MEDTRONIC Time Anatomical Region Laterality Modality Other Specimen (Source) Anatomical Collection Method Collection Time Re ceived Time Location / / Volume Laterality 06/26/2022 12:55 AM CDT Narrative 06/27/2022 11:01 AM CDT [employer] Resonate (S) ICD Remote Device Check 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% Mode: VVIR 50-130 ppm Presenting Rhythm: [...] SERVICES MILTON HOLDEN INTERROGATION DEVICE EVAL REMOTE ICD UP TO 90 (03/20/2022 2:18 PM CDT) Component Value Ref Test Analysis Performed Pathologis t Range Method Time At Signature Date Time MEDTRONIC Interrogation Session Implantable [employer] [employer] MEDTRONIC Pulse Generator Housing Development Specialist Implantable D432 RESONATE EL MEDTRONIC Pulse Generator ICD Model Implantable [id number] MEDTRONIC Pulse Generator Serial Number Type Remote MEDTRONIC Interrogation Session Clinic Name [place] MEDTRONIC Implantable Defibrillator MEDTRONIC Pulse Generator Type Implantable [id number] MEDTRONIC Pulse Generator Implant Date Implantable Lead [employer]TR ON[employer] Housing Development Specialist Implantable Lead [address] [place] MEDTRONIC Model 4-Site S Implantable Lead 896378 MEDTRONIC Serial Number Implantable Lead [id number] MEDTRONIC Implant Date Implantable Lead Bipolar Lead [...] Capacitor Charge Reformation MEDTRONIC Type Capacitor Last [id number] MEDTRONIC Charge Date Time Capacitor Charge 8.8 s MEDTRONIC Time Capacitor Charge Shock MEDTRONIC Type Capacitor Last 61357017829326 MEDTRONIC Charge Date Time Capacitor Charge 6.8 s MEDTRONIC Time Capacitor Charge 41 J MEDTRONIC Energy Brandon Statistic [id number] MEDTRONIC Date Time Start Brandon Statistic [id number] MEDTRONIC Date Time End Brandon Statistic 3 % MEDTRONIC RV Percent Paced Therapy 6 MEDTRONIC Statistic Recent Shocks Delivered Therapy 0 MEDTRONIC Statistic Recent Shocks Aborted Therapy 26 MEDTRONIC Statistic Recent ATP Delivered Therapy 37665563788219 MEDTRONIC Statistic Recent Date Time Start Therapy 02523195845715 MEDTRONIC Statistic Recent Date Time End Therapy 6 MEDTRONIC Statistic Total Shocks Delivered Therapy 0 MEDTRONIC Statistic Total Shocks Aborted Therapy 34 MEDTRONIC Statistic Total ATP Delivered Therapy 46532285271004 MEDTRONIC Statistic Total Date Time End Episode [...] VT-1 MEDTRONIC Statistic Vendor Type Category Episode [id number] MEDTRONIC Statistic Recent Date Time Start Episode [id number] MEDTRONIC Statistic Recent Date Time End Episode [id number] MEDTRONIC Statistic Recent Date Time Start Episode [id number] MEDTRONIC Statistic Recent Date Time End Episode [id number] MEDTRONIC Statistic Recent Date Time Start Episode [id number] MEDTRONIC Statistic Recent Date Time End Episode [id number] MEDTRONIC Statistic Recent Date Time Start Episode [id number] MEDTRONIC Statistic Recent Date Time End Episode [id number] MEDTRONIC Statistic Recent Date Time Start Episode [id number] MEDTRONIC Statistic Recent Date Time End Episode APM-133 MEDTRONIC Identifier Episode Type Periodic EGM MEDTRONIC Category Episode Date [id number] MEDTRONIC Time Episode RVAT-293 MEDTRONIC Identifier Episode Type Other MEDTRONIC Category Episode Date [id number] MEDTRONIC Time Anatomical Region Laterality Modality Other Specimen (Source) Anatomical Collection Method Collection Time Re ceived Time Location / / Volume Laterality 03/19/2022 1:07 AM CDT Narrative 03/26/2022 9:18 AM CDT [employer] Resonate(S) ICD Remote Device Check ?? 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 % ?? Mode: VVIR 50-130 ?? [...] results and follow up plan. pt reports h e was put on 12.5mg of Toprolol XL vs 50mg. ??pt reports that his pills are 50 mg and wondering how to break them into 4s. per 's note from [facility], pt is to be on 12.5mg. Unable to talk with that physician or his nurse . pt is currently taking 25mg of Toprolol XL. ??per Dr. Tomlin's note [facility]: CHANGE how you take these medicines Instructions metoprolol succinate 25 mg Sustained-Rel ease tablet For diagnoses: Typical atrial flutter (H C) What changed: medication strength how much to take Commonly known as: TOPROL XL Take 0.5 Tablets (12.5 mg) by mouth once daily. routed note to Dr. Smith as pt is wrong do se of med and unable to reach ordering provider at [facility]. SH/RN I have reviewed and interpreted the agustín ce interrogation, settings, programming and nurse's summary. The dev ice is functioning within normal device parameters. I agree with the curr ent findings, assessment and plan. 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
--- OUTSIDE RECORDS SUMMARY | 2022-07-19 08:19 | XMS_ITS | Encounter Summary ---
:1940 Author Organization [place] Address [address] 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 documented as of this encounter Plan of Treatment Upcoming Encounters Date Type Specialty Care Team Description 08/16/2022 Ancillary Procedure Cardiology Timothy Smith MD [address] [place] [id number] (Wo rk) 08/16/2022 Office Visit Cardiology Timothy Smith MD [address] [place] [phone] (Wo rk) documented as of this encounter Visit Diagnoses Not on filedocumented in this encounter Care Teams Technical Support Associate Relationship Specialty Start Date End Date Graham Licona MD PCP - General Family Medicine 06/30/21 [facility] [address] [place] [address] Timothy Smith MD Assigned Heart and Vascular 07/23/20 [address] Provider [place] [address] documented as of this encounter
--- OUTSIDE RECORDS SUMMARY | 2022-07-19 08:19 | XMS_ITS | Encounter Summary ---
:1940 Author Organization [place] Address [address] [facility] [place] [address] Care Team Providers Name Role Phone Timothy Smith MD Unavailable Graham Licona MD Primary Care Provider Encounter Details Date Type Department Care Team Description 02/10/2022 Orders Only [facility] Timothy Smith MD Paroxysmal ventricular [facility] [place] [address] tachycardia (H) [address] [facility] [address] (Primary Dx) [facility] [address] [place] [address] [place] [phone] Social History Tobacco Use Types Packs/Day Years [...] 08/16/2022 Ancillary Procedure Cardiology Timothy Smith MD [address] [place] [address] (Wo rk) 08/16/2022 Office Visit Cardiology Timothy Smith MD [address] [place] [address] (Wo rk) Scheduled Orders Name Type Priority [...] jing documented in this encounter Care Teams Drawing Tracer Relationship Specialty Start Date End Date Graham Licona MD PCP - General Family Medicine 06/30/21 [facility] [address] [place] [address] Timothy Smith MD Assigned Heart and Vascular 07/23/20 [address] Provider [place] [address] documented as of this encounter
--- OUTSIDE RECORDS SUMMARY | 2022-07-19 08:19 | XMS_ITS | Encounter Summary ---
:1940 Author Organization [place] Address [address] [facility] [place] [address] Care Team Providers Name Role Phone Timothy Smith MD Unavailable Graham Licona MD Primary Care Provider Reason for Visit Reason Comments Heart Problem ICD shocks Encounter Details Date Type Department Care Team Description 01/27/2022 Documentation Only [facility] Catherine Aranda eart Problem (ICD [facility] [place] Crenshaw LPN shocks) [address] [facility] [address] [place] [address] Social History Tobacco Use Types [...] now. [facility] felt [facility] in [...] [address] [place] [address] (Wo rk) 08/16/2022 Office Visit Cardiology Timothy Smith MD [address] [place] [address] (Wo rk) documented as of this encounter Visit Diagnoses Not on filedocumented in this encounter Care Teams Vice President Global Advertising Sales Relationship Specialty Start Date End Date Graham Licona MD PCP - General Family Medicine 06/30/21 [facility] [address] [place] [address] Timothy Smith MD Assigned Heart and Vascular 07/23/20 [address] Provider [place] [address] documented as of this encounter
--- OUTSIDE RECORDS SUMMARY | 2022-07-19 08:19 | XMS_ITS | Encounter Summary ---
:1940 Author Organization [place] Address [address] [facility] [address] Care Team Providers Name Role Phone Timothy [...] [address] [place] [phone] (Wo rk) 08/16/2022 Office Visit Cardiology Timothy Smith MD [address] [place] [id number] (Wo rk) documented as of this encounter Visit Diagnoses Not on filedocumented in this encounter Care Teams Harbor Engineer Relationship Specialty Start Date End Date Graham Licona MD PCP - General Family Medicine 06/30/21 [facility] [address] [place] [address] Timothy Smith MD Assigned Heart and Vascular 07/23/20 [address] Provider [place] [id number] documented as of this encounter
--- OUTSIDE RECORDS SUMMARY | 2022-07-19 08:19 | XMS_ITS | Encounter Summary ---
:1940 Author Organization [place] Address [address] [place] [address] Care Team Providers Name Role Phone Timothy Smith MD Unavailable Graham Licona MD Primary Care Provider Reason for Referral CV Testing (Routine) - Pending Review Specialty Diagnoses / Procedures Referred By Contact Refer red To Contact Diagnoses Sustained VT (ventricular tachycardia) Paroxysmal ventricular tachycardia Cardiac pacemaker in situ Timothy Smith MD Procedures Cardiac Device Check - Remote (Standing ORD 4 count) [address] [place] [address] Referral ID Status Reason Start Date Expiration Date Visits V isits Requested Authorized [id number] Pending 05/04/2022 05/04/2023 100 100 Review V Testing (Routine) - Pending Review Specialty Diagnoses / Procedures Referred By Contact Refer red To Contact Diagnoses Sustained VT (ventricular tachycardia) Paroxysmal ventricular tachycardia Cardiac pacemaker in situ Timothy Smith MD Procedures Cardiac Device Check - In Clinic (Standing ORD 2 count) [address] [place] [address] Referral ID Status Reason Start Date Expiration Date Visits V isits Requested Authorized [id number] Pending 05/04/2022 05/04/2023 10 10 Review Reason for Visit Reason Onset Date Comments Orders 05/03/2022 Cardiac device check in-clinic/ Extend order Encounter Details Date Type Department Care Team Description 05/03/2022 Telephone [facility] Zarina Smith MD Orders (Cardiac device Health Heart [address] check in-c linic/ Extend [facility] [address] order ) [address] [place], [place] [address] [address] [place], [place] (Work) [address] [phone] Social History Tobacco Use Types Packs/Day Years [...] device appts. Appt made for pt in [place] for annual device check with Dr. Smith appt to follow. LM with date, time and place of appt and requested pt to call back to confirm. Orders previously entered for Amiodarone 6m follow up orders by Dr. Smith. Will fax to ord er to [facility] at . [facility] [place] . Telephone Encounter - Maritza Metzger - 05/03/2022 12:47 PM CDT [facility] Call Center Phone Message May a [...] he would prefer to schedule this in [place] as well. Please send an order to [facility]. Advising them to reach out to the Pt for scheduling. Action Taken: Other: [facility] Travel Screening: Not Applicable documented in this encounter Plan of Treatment Upcoming Encounters Date Type Specialty Care Team Description 08/16/2022 Ancillary Procedure Cardiology Timothy Smith MD [address] [place] [address] (Wo rk) 08/16/2022 Office Visit Cardiology Timothy Smith MD [address] [place] [address] (Wo rk) Scheduled Orders Name Type Priority [...] situ documented in this encounter Care Teams Ring Spinner Relationship Specialty Start Date End Date Graham Licona MD PCP - General Family Medicine 06/30/21 [facility] [address] [place] [address] Timothy Smith MD Assigned Heart and Vascular 07/23/20 [address] Provider [place] [phone] documented as of this encounter
--- OUTSIDE RECORDS SUMMARY | 2022-07-19 08:19 | XMS_ITS | Encounter Summary ---
:1940 Author Organization [place] Address [address] [place] [address] Care Team Providers Name Role Phone Timothy Smith MD Unavailable Graham Licona MD Primary Care Provider Encounter Details Date Type Department Care Team Description 03/06/2022 [facility] Keyshawn Myers RN [facility] Heart [address] [place] [address] Social History Tobacco Use Types [...] [address] [place] [address] (Wo rk) 08/16/2022 Office Visit Cardiology Timothy Smith MD [address] [place] [phone] (Wo rk) documented as of this encounter Visit Diagnoses Not on filedocumented in this encounter Care Teams Dental Assisting Instructor Relationship Specialty Start Date End Date Graham Licona MD PCP - General Family Medicine 06/30/21 [facility] [address] [place] [address] Timothy Smith MD Assigned Heart and Vascular 07/23/20 [address] Provider [place] [address] documented as of this encounter
--- OUTSIDE RECORDS SUMMARY | 2022-07-19 08:19 | XMS_ITS | Encounter Summary ---
:1940 Author Organization [place] Address [address] [place] [address] Care Team Providers Name Role Phone Timothy Smith MD Unavailable Graham Licona MD Primary Care Provider Reason for Visit CV Testing (Routine) - Pending Review Specialty Diagnoses / Procedures Referred By Contact Refer red To Contact Diagnoses Cardiac pacemaker in situ Steven Canchola Procedures Cardiac Device Check - Remote (Standing ORD 4 count) [address] [place] [address] [place] [address] Referral ID Status Reason Start Date Expiration Date Visits V isits Requested Authorized [id number] Pending 03/20/2022 03/20/2023 100 100 Review Encounter Details Date Type Department Care Team Description 06/26/2022 Ancillary [facility] Steven Canchola Card iac pacemaker Procedure [facility] MD Jose in situ Heart Care [address] [place] [address] [place] [address] [place] [phone] (Wo rk) [address] [phone] Social History Tobacco Use Types Packs/Day Years [...] Procedure Cardiology Timothy Smith MD [address] [place] [phone] (Wo rk) 08/16/2022 Office Visit Cardiology Timothy Smith MD [address] [place] [address] (Wo rk) documented as of this encounter [...] Range Method Time At Signature Date Time [id number] [employer] Interrogation Session Implantable [employer] Pulse Generator Customer Agent Implantable D432 RESONATE EL [employer]IC Pulse Generator ICD Model Implantable [id number] [employer] Pulse Generator Serial Number Type Remote [facility] Interrogation Session Clinic Name [facility] [employer] Implantable Defibrillator [employer]IC Pulse Generator Type Implantable [id number] [employer] Pulse Generator Implant Date Implantable Lead [employer] Customer Agent Implantable Lead [place] MEDTR[employer]IC Model 4-Site S Implantable Lead [id number] [employer]IC Serial Number Implantable Lead [id number] MEDTRONIC Implant Date Implantable Lead Bipolar Lead [...] [employer]TRONIC Pacing Threshold Pulse Width Battery Date 15338800659153 [employer]IC Time of Measurements Battery Status Beginning [...] Charge 41 J [employer]TRONIC Energy Brandon Statistic [id number] MEDTRONIC Date Time Start Brandon Statistic [id number] MEDTRONIC Date Time End Brandon Statistic 3 % MEDTRONIC RV Percent Paced Therapy 6 MEDTRONIC Statistic Recent Shocks Delivered Therapy 0 MEDTRONIC Statistic Recent Shocks Aborted Therapy 26 MEDTRONIC Statistic Recent ATP Delivered Therapy [id number] MEDTRONIC Statistic Recent Date Time Start Therapy [id number] MEDTRONIC Statistic Recent Date Time End Therapy 6 MEDTRONIC Statistic Total Shocks Delivered Therapy 0 MEDTRONIC Statistic Total Shocks Aborted Therapy 34 MEDTRONIC Statistic Total ATP Delivered Therapy 20674198444057 MEDTRONIC Statistic Total Date Time End Episode [...] VT-1 MEDTRONIC Statistic Vendor Type Category Episode [id number] MEDTRONIC Statistic Recent Date Time Start Episode [id number] MEDTRONIC Statistic Recent Date Time End Episode [id number] MEDTRONIC Statistic Recent Date Time Start Episode [id number] MEDTRONIC Statistic Recent Date Time End Episode [id number] MEDTRONIC Statistic Recent Date Time Start Episode [id number] MEDTRONIC Statistic Recent Date Time End Episode [id number] MEDTRONIC Statistic Recent Date Time Start Episode [id number] MEDTRONIC Statistic Recent Date Time End Episode [id number] MEDTRONIC Statistic Recent Date Time Start Episode [id number] [employer]TRONIC Statistic Recent Date Time End Episode APM-195 [employer]IC Identifier Episode Type Periodic EGM [employer]IC Category Episode Date [id number] [employer]ONIC Time Episode RVAT-406 [employer] Identifier Episode Type Other [employer]TRONIC Category Episode Date [id number] [employer] Time Anatomical Region Laterality Modality Other Specimen (Source) Anatomical Collection Method Collection Time Re ceived Time Location / / Volume Laterality 06/26/2022 12:55 AM CDT Narrative 06/27/2022 11:01 AM CDT [employer] Resonate (S) ICD 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 Chayo, RN I have reviewed and interpreted the agustín ce interrogation, settings, programming and nurse's summary. The dev ice is functioning within normal device parameters. I agree with the curr ent findings, assessment and plan. Steven Canchola MD [facility] documented in this encounter Visit Diagnoses Diagnosis Cardiac pacemaker in situ documented in this encounter Care Teams Spot Facer Relationship Specialty Start Date End Date Graham Licona MD PCP - General Family Medicine 06/30/21 [facility] [address] [place] [address] Timothy Smith MD Assigned Heart and Vascular 07/23/[address] Provider [place] [address] documented as of this encounter
--- OUTSIDE RECORDS SUMMARY | 2022-07-19 08:19 | XMS_ITS | Encounter Summary ---
:1940 Author Organization [place] Address [address] [facility] [place] [address] Care Team Providers Name Role Phone Timothy Smith MD Unavailable Graham Licona MD Primary Care Provider Reason for Visit Reason Onset Date Comments Implantable Devices 05/01/2022 Encounter Details Date Type Department Care Team Description 05/01/2022 Telephone [facility] Eve Santos, Impla ntable Devices [facility] Heart RN Care [facility] [facility] [address] [place] [address] Social History Tobacco Use Types [...] [address] [place] [address] (Fiorella olvera) 08/16/2022 Office Visit Cardiology Timothy Smith MD [address] [place] [address] (Wo wade) documented as of this encounter Visit Diagnoses Not on filedocumented in this encounter Care Teams Box Worker Relationship Specialty Start Date End Date Graham Licona MD PCP - General Family Medicine 06/30/21 [facility] [address] [place] [address] Timothy Smith MD Assigned Heart and Vascular 07/23/[address] Provider [place] [address] documented as of this encounter
--- OUTSIDE RECORDS SUMMARY | 2022-07-19 08:19 | XMS_ITS | Encounter Summary ---
:1940 Author Organization [place] Address [address] [facility] [address] Care Team Providers Name Role Phone Timothy Smith MD Unavailable Graham Licona MD Primary Care Provider Reason for Visit Reason Onset Date Comments Implantable Devices 08/24/2021 Encounter Details Date Type Department Care Team Description 08/24/2021 Telephone [facility] Sandrine Whitman Implantable Devices [facility] Heart Care [address] [place] [address] [address] [place] [address] Social History Tobacco Use Types Packs/Day Years Used Date Smoking Tobacco: Never Smokeless Tobacco: Never Alcohol Use Standard Drinks/Week Comments No 0 (1 standard drink = 0.6 oz pure alcoho l) Sex Assigned at Date Recorded Not on file COVID-19 Exposure Response Date Recorded In the last month, have you been in contact with No / Unsure 08/24/2021 10:48 AM DIRECTOR OF SPA AND GUEST EXPERIENCE someone who was confirmed or suspected to [...] bleed (dark tarry stools). Patient voiced understanding. CTOR OF SPA AND GUEST EXPERIENCE Telephone Encounter - Aliza Whitman - 08/24/2021 [...] ?? Will route message to Dr Smith. CTOR OF SPA AND GUEST EXPERIENCE documented in this encounter Plan of Treatment Upcoming Encounters Date Type Specialty Care Team Description 08/16/2022 Ancillary Procedure Cardiology Timothy Smith MD [address] [place] [phone] (Wo wade) 08/16/2022 Office Visit Cardiology Timothy Smith MD [address] [place] [address] (Wo rk) documented as of this encounter Visit Diagnoses Diagnosis Persistent atrial fibrillation (H) - [facility] jing Atrial fibrillation documented in this encounter Care Teams Lead Teller Relationship Specialty Start Date End Date Graham Licona MD PCP - General Family Medicine 06/30/21 [facility] [address] [place] [address] Timothy Smith MD Assigned Heart and Vascular 07/23/20 [address] Provider [place] [address] documented as of this encounter
--- OUTSIDE RECORDS SUMMARY | 2022-07-19 08:19 | XMS_ITS | Encounter Summary ---
:1940 Author Organization [place] Address [address] [facility] [place] [address] Care Team Providers Name Role Phone Timothy [...] [address] [place] [address] (Wo rk) 08/16/2022 Office Visit Cardiology Timothy Smith MD [address] [place] [phone] (Wo rk) documented as of this encounter Visit Diagnoses Not on filedocumented in this encounter Care Teams Nurse Executive Relationship Specialty Start Date End Date Graham Licona MD PCP - General Family Medicine 06/30/21 [facility] [address] [place] [address] Timothy Smith MD Assigned Heart and Vascular 07/23/20 [address] Provider [place] [address] documented as of this encounter
--- OUTSIDE RECORDS SUMMARY | 2022-07-19 08:20 | XMS_ITS | Encounter Summary ---
:1940 Author Organization [place] Address [address] [facility] [place] [address] Care Team Providers Name Role Phone Slava Hernandez PA-C Primary Care Provider Timothy Smith MD Unavailable Encounter Details Date Type Department Care Team Description 04/26/2021 Orders Only [facility] Timothy Smith MD Encounter for [facility] [place] [address] screening for other [address] viral diseases [facility] [address] [place] [address] [place] [phone] Social History Tobacco Use Types Packs/Day Years [...] [address] [place] [phone] (Wo rk) 08/16/2022 Office Visit Cardiology Timothy Smith MD [address] [place] [phone] (Wo rk) documented as of this encounter [...] using the Aptima SARS-CoV-2 Assay on the Tocagen Instrument System. Additional in formation about this [...] COVID-19. This test was validated by the [facility] Infectious Diseases Diagnostic Laboratory. This lab oratory is certified under the Clinical Laboratory Improvement Amen dments of 1987 (CLIA-88) as qualified to perform high complexity lab oratory testing. Timothy Smith MD LAB - MICRO GENERAL ORDERABL ES Performing Organization Address City/State/ZIP Code Phon e Number [facility] [place] [address] Diag. Lab [address] [facility], [address] [facility] Infectious [place], [place] [phone] Diseases Diagnostic [phone], [facility] Lab (IDDL) [address] [facility], [address]297 documented in this encounter Visit Diagnoses Diagnosis Encounter for screening for other viral diseases documented in this encounter Care Teams Crozer Operator Relationship Specialty Start Date End Date Slava Hernandez, PCP - General Physician Clinical Staff Rn 07/02/1806/02 PAIlanaC [facility] [address] [place] [address] Timothy Smith MD Assigned Heart and 07/23/20 [address] [facility] Vascular Provider [address] [place] [address] documented as of this encounter
--- OUTSIDE RECORDS SUMMARY | 2022-07-19 08:20 | XMS_ITS | Encounter Summary ---
:1940 Author Organization [place] Address [address] [place] [address] Care Team Providers Name Role Phone Timothy Smith MD Unavailable Graham Licona MD Primary Care Provider Reason for Visit CV Testing (Routine) - Closed Specialty Diagnoses / Procedures Referred By Contact Refer red To Contact Diagnoses Cardiac pacemaker in situ Chris De Leon MD Procedures Cardiac Device Check - In Clinic (Post implant follow up) [address] [place] [address] Referral ID Status Reason Start Date Expiration Date Visits Requ ested Visits Authorized [id number] Closed 07/05/2021 07/05/2022 1 1 Encounter Details Date Type Department Care Team Description 07/14/2021 Ancillary Procedure [facility] Chris De Leon, Cardiac pacemaker in [facility] situ Heart Care [address] [facility] [address] [place] [address] [place] [address] [phone] Social History Tobacco Use Types Packs/Day Years [...] [address] [place] [address] (Wo rk) 08/16/2022 Office Visit Cardiology Timothy Smith MD [address] [place] [phone] (Wo rk) documented as of this encounter [...] Range Method Time At Signature Date Time [id number] [employer] Interrogation Session Implantable [employer]IC Pulse Generator Motorcycle Mechanic Implantable D432 RESONATE EL MEDTRONIC Pulse Generator ICD Model Implantable [id number] MEDTR[employer]IC Pulse Generator Serial Number Type In Clinic [facility] Interrogation Session Clinic Name [place] [facility]IC Implantable Defibrillator MEDTRONIC Pulse Generator Type Implantable [id number] MEDTRONIC Pulse Generator Implant Date Implantable Lead [employer]TR [employer] Motorcycle Mechanic Implantable Lead [address] [place] MEDTRONIC Model 4-Site S Implantable Lead 642245 MEDTRONIC Serial Number Implantable Lead [id number] MEDTRONIC Implant Date Implantable Lead Bipolar Lead [...] 0 MEDTRONIC Statistic Total ATP Delivered Therapy 98526310269859 MEDTRONIC Statistic Total Date Time End Therapy 0 MEDTRONIC Statistic Recent Shocks Delivered Therapy 0 MEDTRONIC Statistic Recent Shocks Aborted Therapy 0 [employer]TRONIC Statistic Recent ATP Delivered Therapy SunJul 04 [employer]TRONIC Statistic Recent 11:45:37 CDT 2020 Date Time Start Therapy 57245459383938 [employer]TRONIC Statistic Recent Date Time End Episode 61 MEDTRONIC Statistic Total Count Episode VT MEDTRONIC Statistic Type Category Episode NSVT MEDTRONIC Statistic Vendor Type Category Episode 0 MEDTRONIC Statistic Total Count Episode VF MEDTRONIC Statistic Type Category Episode VF MEDTRONIC Statistic Vendor Type Category Episode 0 MEDTRONIC Statistic Total Count Episode VF_VT_MONITOR MEDTRONIC Statistic Type Category Episode [id number] MEDTRONIC Statistic Total Date Time End Episode [id number] MEDTRONIC Statistic Total Date Time End Episode [id number] MEDTRONIC Statistic Total Date Time End Episode [...] 11:45:37 CDT 2020 Date Time Start Episode [id number] [employer]IC Statistic Recent Date Time End Episode SunJul 04 [employer]IC Statistic Recent 11:45:37 CDT 2020 Date Time Start Episode [id number] [employer] Statistic Recent Date Time End Episode SunJul 04 [employer]IC Statistic Recent 11:45:37 CDT 2020 Date Time Start Episode [id number] [employer] Statistic Recent Date Time End Anatomical Region Laterality Modality Other Specimen (Source) Anatomical Collection Method Collection Time Re ceived Time Location / / Volume Laterality 07/14/2021 11:37 AM CDT Narrative 07/18/2021 1:08 PM CDT [place] ??7 Day Post Upgrade to ICD and PPM removal Device Check Patient seen in clinic for device evalua tion and iterative programming. UX LEAD: 3 % ?? Mode: VVIR 50-130 ?? [...] well as fo llow-up regarding anticoagulation status. KB, RN ?? I have reviewed and interpreted the agustín ce interrogation, settings, programming and nurse's summary. The dev ice is functioning within normal device parameters. I agree with the curr ent findings, assessment and plan. Chris Hinds MD [facility] ORDERABL ES documented in this encounter Visit Diagnoses Diagnosis Cardiac pacemaker in situ documented in this encounter Care Teams Vegetable Loader Machine Operator Relationship Specialty Start Date End Date Graham Licona MD PCP - General Family Medicine 06/30/21 [facility] [address] [place] [address] Timothy Smith MD Assigned Heart and Vascular 07/23/[address] Provider [place] [address] documented as of this encounter
--- OUTSIDE RECORDS SUMMARY | 2022-07-19 08:20 | XMS_ITS | Encounter Summary ---
:1940 Author Organization [place] Address [address] [facility] [place] [address] Care Team Providers Name Role Phone Timothy [...] [address] [place] [phone] (Wo rk) 08/16/2022 Office Visit Cardiology Timothy Smith MD [address] [place] [phone] (Wo rk) documented as of this encounter Visit Diagnoses Not on filedocumented in this encounter Care Teams Casting Operator Helper Relationship Specialty Start Date End Date Graham Licona MD PCP - General Family Medicine 06/30/21 [facility] [address] [place] [address] Timothy Smith MD Assigned Heart and Vascular 07/23/20 [address] Provider [place] [address] documented as of this encounter
--- OUTSIDE RECORDS SUMMARY | 2022-07-19 08:20 | XMS_ITS | Encounter Summary ---
:1940 Author Organization [place] Address [address] [facility] [place] [address] Care Team Providers Name Role Phone Timothy Smith MD Unavailable Graham Licona MD Primary Care Provider Encounter Details Date Type Department Care Team Description [facility] Heart [address] [place] [address] Social History Tobacco Use Types [...] at 12:02 and 12:04. EGM shows VT [id number] and 1m9s with V-rates in the 200-210s. [...] [address] [place] [address] (Wo wade) 08/16/2022 Office Visit Cardiology Timothy Smith MD [address] [place] [address] (Wo rk) documented as of this encounter Visit Diagnoses Not on filedocumented in this encounter Care Teams District Resource Officer Relationship Specialty Start Date End Date Graham Licona MD PCP - General Family Medicine 06/30/21 [facility] [address] [place] [address] Timothy Smith MD Assigned Heart and Vascular 07/23/20 [address] Provider [place] [address] documented as of this encounter
--- OUTSIDE RECORDS SUMMARY | 2022-07-19 08:20 | XMS_ITS | Encounter Summary ---
:1940 Author Organization [place] Address [address] [facility] [place] [address] Care Team Providers Name Role Phone Timothy Smith MD Unavailable Graham Licona MD Primary Care Provider Reason for Visit Reason Comments H & P For ICD upgrade Consultation (Routine) - Closed Specialty Diagnoses / Procedures Referred By Contact Refer red To Contact Diagnoses Sustained [place] (ventricular tachycardia) Cardiac pacemaker in situ [facility] [address] [facility] [address] [place] [phone] Referral ID Status Reason Start Date Expiration Date Visits Requ ested Visits Authorized [id number] Closed 06/23/2021 06/23/2022 1 1 Encounter Details Date Type Department Care Team Description 06/30/[address] [facility] Tammy Montenegro [place] (ventricular tachycardia) (H); Heart Clinic Patt Torres PA-C Cardiac pacemaker in situ; [address] [facility] Type 2 diabetes mellitus with complication (H); [address] Persistent atrial fibrillation (H) [place] [phone] [place] [id number] (Wo rk) Social History Tobacco Use Types [...] today! 1. Reviewed your recent hospitalization at [facility]. I'll look into this more and let [...] 8 AM, thennothing to eat/drink after 0800. [phone] documented in this encounter Progress Notes Tammy Montenegro PA-C - 06/30/2021 7:30 AM CDT [facility] I had the pleasure of seeing Odilon [...] (diabetes, CAD, age) 5. 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 He did not ever have an AV node ablation. 6. 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 We believe he had a VG -OM, VG-RCA, VG-LAD and VG-D at that time. Angiogram01/2016 showed patent VGs! 7. 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 8. Obstructive sleep apnea, type 2 diabetes, obesity 9. Recent GI bleed/bleeding ulcer - admitted [facility] 06/04-03/2021. Two units pRBCs given. EGD reportedly [...] me that he was recently admitted to [facility] d/t dark tarry stools 06/02-01/2021 (?). He [...] pRBCs. We'll work on getting records from [facility]. No issues with palpitations. No dizziness, lightheadedness since the 2 that prompted him to agree toICD implantation this summer. No syncope/falls. No c/o CP. Thinks breathing is stable. He's not taking Celebrex anymore (since hospital discharge) and aches b/c of this, but not anything he wasn't expecting. ADDENDUM 06/30/2021 REVIEWED NOTES FROM [facility]. Pt admitted 06/03- 03/2021 for acute GI bleeding with black coffee-ground emesis and melena. Continued to have large melanotic stools in hospital. Feliz held and given 2 units pRBCs. Was [...] RBBB Dino Sci PPM 05/2021, showed 30% LINUX CONSULTANT in VVIR 60/130. 2 HVR with EGMs showing AFib/RVR to 35seconds Echocardiogram 03/2021 - EF 50-55%. Mod decreased RVSF. MARTA (mod). Mod MAC with trace MR. Trace TR with RVSP 36+RAP. RA pressure 8mmHg. Trivial aortic sclerosis with trace-mild AI. Root OK. asc ao mildly dilated 3.7 cm Angiogram 01/2016 - patent bypass grafts Plan: Get [facility] records re: GI Bleed ICD upgrade as [...] ICD therapy was provided today and reviewed [id number]. The main points addressed in the handout were further discussed today. All questions/concerns were addressed. After a good discussion, the patient verbalized understanding and has agreed to proceed with ICD implantation. ??? Cooper Decision Making Aid PLAN: ??? ICD upgrade [...] cephalexin x 7 days given early Jun @[facility]) 2. CAD ??? S/p 4 v CABG [...] BRBPR/melena PLAN: ??? Will work on getting [facility] documents ??? CBC will be completed at [...] Other Topics Concern ??? Parent/sibling w/ CABG, FL or angioplasty before 65F 55M? No ??? [...] Gatherings with Friends and Family: ??? Attends Uatsdin Services: ??? Active Member of Clubs or [...] [address] [place] [id number] (Wo wade) 08/16/2022 Office Visit Cardiology Timothy Smith MD [address] [place] [id number] (Wo rk) documented as of this encounter Visit Diagnoses Diagnosis Sustained VT (ventricular tachycardia) Paroxysmal ventricular tachycardia Cardiac pacemaker in situ Type 2 diabetes mellitus with complicati on (H) Persistent atrial fibrillation (H) Atrial fibrillation documented in this encounter Care Teams Fitness Club Manager Relationship Specialty Start Date End Date Graham Licona MD PCP - General Family Medicine 06/30/21 [facility] [address] [place] [address] Timothy Smith MD Assigned Heart and Vascular 07/23/20 [address] Provider [place] [id number] documented as of this encounter
--- OUTSIDE RECORDS SUMMARY | 2022-07-19 08:20 | XMS_ITS | Encounter Summary ---
:1940 Author Organization [place] Address [address] [facility] [address] Care Team Providers Name Role Phone Timothy Smith MD Unavailable Graham Licona MD Primary Care Provider Reason for Referral CV Testing (Routine) - Closed Specialty Diagnoses / Procedures Referred By Contact Refer red To Contact Diagnoses Cardiac pacemaker in situ Chris De Leon MD Procedures Cardiac Device Check - Remote (Post implant follow up) [address] [place] [address] Referral ID Status Reason Start Date Expiration Date Visits Requ ested Visits Authorized [id number] Closed 07/05/2021 07/05/2022 1 1 V Testing (Routine) - Closed Specialty Diagnoses / Procedures Referred By Contact Refer red To Contact Diagnoses Cardiac pacemaker in situ Chris De Leon MD Procedures Cardiac Device Check - In Clinic (Post implant follow up) [address] [place] [address] Referral ID Status Reason Start Date Expiration Date Visits Requ ested Visits Authorized [id number] Closed 07/05/2021 07/05/2022 1 1 Encounter Details Date Type Department Care Team Description 07/05/2021 [facility] Chris De Leon MD Cardiac pacemaker in [facility] [address] situ (Primary Dx) [address] [place] [address] [place] [phone] Social History Tobacco Use Types Packs/Day Years [...] [address] [place] [address] (Wo rk) 08/16/2022 Office Visit Cardiology Timothy Smith MD [address] [place] [id number] (Wo rk) Scheduled Orders Name Type Priority [...] ICD UP TO 90 (11/24/2021 1:06 PM WET MACHINE TENDER) Component Value Ref Test Analysis Performed Pathologis t Range Method Time At Signature Date Time [id number] [employer] Interrogation Session Implantable [place] [employer] Pulse Generator Truckman Implantable D432 RESONATE EL [employer]IC Pulse Generator ICD Model Implantable [id number] [employer] Pulse Generator Serial Number Type Remote [facility]IC Interrogation Session Clinic Name [place] [facility] Implantable Defibrillator MEDTRONIC Pulse Generator Type Implantable [id number] [employer]IC Pulse Generator Implant Date Implantable Lead [place] [employer] Truckman Implantable Lead [address] [place] [employer]IC Model 4-Site S Implantable Lead [id number] [employer] Serial Number Implantable Lead [id number] MEDTRONIC Implant Date Implantable Lead Bipolar Lead [...] Capacitor Charge Reformation MEDTRONIC Type Capacitor Last [id number] [employer]TRONIC Charge Date Time Capacitor Charge 9.1 s MEDTRONIC Time Brandon Statistic MEDTRONIC Date Time Start Brandon Statistic MEDTRONIC Date Time End Brandon Statistic 3 % MEDTRONIC RV Percent Paced Therapy 0 MEDTRONIC Statistic Recent Shocks Delivered Therapy 0 MEDTRONIC Statistic Recent Shocks Aborted Therapy 0 MEDTRONIC Statistic Recent ATP Delivered Therapy [id number] MEDTRONIC Statistic Recent Date Time Start Therapy [id number] MEDTRONIC Statistic Recent Date Time End Therapy 0 MEDTRONIC Statistic Total Shocks Delivered Therapy 0 MEDTRONIC Statistic Total Shocks Aborted Therapy 8 MEDTRONIC Statistic Total ATP Delivered Therapy [id number] MEDTRONIC Statistic Total Date Time End Episode [...] VT-1 MEDTRONIC Statistic Vendor Type Category Episode [id number] [employer]TR[employer]IC Statistic Recent Date Time Start Episode MEDTRONIC Statistic Recent Date Time End Episode [id number] [employer]TR[employer]IC Statistic Recent Date Time Start Episode MEDTRONIC Statistic Recent Date Time End Episode [id number] [employer]TRONIC Statistic Recent Date Time Start Episode MEDTRONIC Statistic Recent Date Time End Episode [id number] [employer]TRONIC Statistic Recent Date Time Start Episode [id number] MEDTRONIC Statistic Recent Date Time End Episode [id number] [employer]TR[employer]IC Statistic Recent Date Time Start Episode [id number] [employer]IC Statistic Recent Date Time End Episode APM-55 [employer]IC Identifier Episode Type Periodic EGM MEDTRONIC Category Episode Date MEDTRONIC Time Episode RVAT-160 [employer]IC Identifier Episode Type Other MEDTRONIC Category Episode Date MEDTRONIC Time Anatomical Region Laterality Modality Other Specimen (Source) Anatomical Collection Method Collection Time Re ceived Time Location / / Volume Laterality 11/23/2021 12:40 AM WET MACHINE TENDER Narrative 12/04/2021 10:04 AM WET MACHINE TENDER [place] [employer] Resonate (S) ICD Remote Device Check CYBER SPECIAL AGENT: 3 % ?? Mode: VVIR 50-130 [...] EVAL, DUAL LEAD ICD (08/24/2021 11:02 AM WET MACHINE TENDER) Component Value Ref Test Analysis Performed Pathologis t Range Method Time At Signature Date Time [employer]IC Interrogation Session Implantable [place] [employer] Pulse Generator Truckman Implantable D432 RESONATE EL [employer]TR[employer]IC Pulse Generator ICD Model Implantable [id number] [employer] Pulse Generator Serial Number Type In Clinic [facility]IC Interrogation Session Clinic Name [place] [facility]IC Implantable Defibrillator MEDTRONIC Pulse Generator Type Implantable [id number] MEDTRONIC Pulse Generator Implant Date Implantable Lead [place] [employer] Truckman Implantable Lead [address] [place] MEDTRONIC Model 4-Site S Implantable Lead 409663 [employer]IC Serial Number Implantable Lead [id number] MEDTRONIC Implant Date Implantable Lead Bipolar Lead [...] [employer]TRONIC Pacing Threshold Pulse Width Battery Date [id number] [employer]IC Time of Measurements Battery Status Beginning of MEDTRONIC Service Battery 174 mo MEDTRONIC Remaining Longevity Battery 100 % [employer]TR[employer]IC Remaining Percentage Capacitor Charge Reformation MEDTRONIC Type Capacitor Last [id number] [employer]IC Charge Date Time Capacitor Charge 9.1 s MEDTRONIC Time Brandon Statistic [id number] MEDTRONIC Date Time Start Brandon Statistic MEDTRONIC Date Time End Brandon Statistic 4 % MEDTRONIC RV Percent Paced Therapy 0 MEDTRONIC Statistic Recent Shocks Delivered Therapy 0 MEDTRONIC Statistic Recent Shocks Aborted Therapy 8 MEDTRONIC Statistic Recent ATP Delivered Therapy [id number] MEDTRONIC Statistic Recent Date Time Start Therapy [id number] MEDTRONIC Statistic Recent Date Time End Therapy 0 MEDTRONIC Statistic Total Shocks Delivered Therapy 0 MEDTRONIC Statistic Total Shocks Aborted Therapy 8 MEDTRONIC Statistic Total ATP Delivered Therapy 72301514133410 MEDTRONIC Statistic Total Date Time End Episode [...] VT-1 MEDTRONIC Statistic Vendor Type Category Episode [id number] [employer]TRONIC Statistic Recent Date Time Start Episode [id number] [employer]TRONIC Statistic Recent Date Time End Episode [id number] MEDTRONIC Statistic Recent Date Time Start Episode [id number] MEDTRONIC Statistic Recent Date Time End Episode [id number] [employer]TRONIC Statistic Recent Date Time Start Episode [id number] MEDTRONIC Statistic Recent Date Time End Episode [id number] [employer]TR[employer]IC Statistic Recent Date Time Start Episode [id number] [employer]TR[employer]IC Statistic Recent Date Time End Episode [id number] MEDTRONIC Statistic Recent Date Time Start Episode [id number] MEDTRONIC Statistic Recent Date Time End Episode APM-11 [facility]IC Identifier Episode Type Periodic EGM [employer]TR[employer]IC Category Episode Date [id number] [employer] Time Anatomical Region Laterality Modality Other Specimen (Source) Anatomical Collection Method Collection Time Re ceived Time Location / / Volume Laterality 08/24/2021 11:09 AM WET MACHINE TENDER Narrative 09/06/2021 1:31 PM WET MACHINE TENDER [employer] Resonate (S) ICD Device Check Patient seen in clinic for device evalua tion and iterative programming. ?? CYBER SPECIAL AGENT: 4% ?? Mode: VVIR 50-130 ?? Underlying [...] with V ra barbara of 200-210 for 0bfq3yeh and 1ydt2uov. Both episodes received ATPx6 a nd was successful after the 6th attempt. VT episode on 08/01/21 at 0923 E GM shows VT for [id number] with V rates of 180-210bpm, ATPx7 was delivered and was successful after the 7th ATP attempt. The other episode of VT occ urred on 07/23/21 at 0832 EGM shows 8rnr7nbf of VT with V rates of 200 [...] Signature Date Time [employer]TRONIC Interrogation Session Implantable [place] [employer] Pulse Generator Truckman Implantable D432 RESONATE EL [employer]IC Pulse Generator ICD Model Implantable [id number] [employer]IC Pulse Generator Serial Number Type In Clinic [facility]IC Interrogation Session Clinic Name [place] [facility]IC Implantable Defibrillator MEDTRONIC Pulse Generator Type Implantable [id number] MEDTRONIC Pulse Generator Implant Date Implantable Lead [place] [employer] Truckman Implantable Lead [address] [place] MEDTRONIC Model 4-Site S Implantable Lead [id number] MEDTRONIC Serial Number Implantable Lead [id number] MEDTRONIC Implant Date Implantable Lead Bipolar Lead [...] 0 MEDTRONIC Statistic Total ATP Delivered Therapy MEDTRONIC Statistic Total Date Time End Therapy 0 MEDTRONIC Statistic Recent Shocks Delivered Therapy 0 MEDTRONIC Statistic Recent Shocks Aborted Therapy 0 MEDTRONIC Statistic Recent ATP Delivered Therapy SunJul 04 MEDTRONIC Statistic Recent 11:45:37 CDT 2020 Date Time Start Therapy [id number] MEDTRONIC Statistic Recent Date Time End Episode 61 MEDTRONIC Statistic Total Count Episode VT MEDTRONIC Statistic Type Category Episode NSVT MEDTRONIC Statistic Vendor Type Category Episode 0 MEDTRONIC Statistic Total Count Episode VF MEDTRONIC Statistic Type Category Episode VF MEDTRONIC Statistic Vendor Type Category Episode 0 MEDTRONIC Statistic Total Count Episode [id number] MEDTRONIC Statistic Type Category Episode [id number] MEDTRONIC Statistic Total Date Time End Episode [id number] MEDTRONIC Statistic Total Date Time End Episode [id number] MEDTRONIC Statistic Total Date Time End Episode [...] 11:45:37 CDT 2020 Date Time Start Episode [id number] [employer]IC Statistic Recent Date Time End Episode SunJul 04 [employer]TR[employer]IC Statistic Recent 11:45:37 CDT 2020 Date Time Start Episode [id number] [employer]ONIC Statistic Recent Date Time End Episode SunJul 04 MEDTRONIC Statistic Recent 11:45:37 CDT 2020 Date Time Start Episode [id number] [employer]ONIC Statistic Recent Date Time End Anatomical Region Laterality Modality Other Specimen (Source) Anatomical Collection Method Collection Time Re ceived Time Location / / Volume Laterality 07/14/2021 11:37 AM CDT Narrative 07/18/2021 1:08 PM CDT [employer] ??7 Day Post Upgrade to ICD and PPM removal Device Check Patient seen in clinic for device evalua tion and iterative programming. CYBER SPECIAL AGENT: 3 % ?? Mode: VVIR 50-130 [...] situ documented in this encounter Care Teams Screen Roller Relationship Specialty Start Date End Date Graham Licona MD PCP - General Family Medicine 06/30/21 [facility] [address] [place] [address] Timothy Smith MD Assigned Heart and Vascular 07/23/[address] Provider [place] [id number] documented as of this encounter
--- OUTSIDE RECORDS SUMMARY | 2022-07-19 08:20 | XMS_ITS | Encounter Summary ---
:1940 Author Organization [place] Address [address] [facility] [place] [address] Care Team Providers Name Role Phone Timothy Smith MD Unavailable Graham Licona MD Primary Care Provider Reason for Visit Reason Comments Clinic Care Coordination - Follow-up Encounter Details Date Type Department Care Team Description 06/30/2021 Documentation Only [facility] Tammy Montenegro Clinic Care Heart Clinic Patt Torres PA-C Coordination - [address] [facility] [address] [facility] [place] [phone] Social History Tobacco Use Types Packs/Day [...] let me know that he'd been at [facility] for GI bleed/ulcer~. He's been off Eliquis since early Jun of this; was not instructed when to restart this for his persistent AFib but due to have a repeat EGD early Jul. Dr. Smith had wanted him to hold Eliquis x 2 days anyway. I figured we'd wait to restart until until repeat EGD done (I'm not sure if that has been set up yet but will check). Just FYI! Saadia documented in this encounter Plan of Treatment Upcoming Encounters Date Type Specialty Care Team Description 08/16/2022 Ancillary Procedure Cardiology Timothy Smith MD [address] [place] [address] (Wo rk) 08/16/2022 Office Visit Cardiology Timothy Smith MD [address] [place] [address] (Wo rk) documented as of this encounter Visit Diagnoses Not on filedocumented in this encounter Care Teams Genetic Supervisor Relationship Specialty Start Date End Date Graham Licona MD PCP - General Family Medicine 06/30/21 [facility] [address] [place] [address] Timothy Smith MD Assigned Heart and Vascular 07/23/[address] Provider [place] [id number] documented as of this encounter
--- OUTSIDE RECORDS SUMMARY | 2022-07-19 08:20 | XMS_ITS | Encounter Summary ---
:1940 Author Organization [place] Address [address] [place] [address] Care Team Providers Name Role Phone Timothy Smith MD Unavailable Graham Licona MD Primary Care Provider Reason for Visit CV Testing (Routine) - Closed Specialty Diagnoses / Procedures Referred By Contact Refer red To Contact Diagnoses Cardiac pacemaker in situ Chris De Leon MD Procedures Cardiac Device Check - In Clinic (Post implant follow up) [address] [place] [id number] Referral ID Status Reason Start Date Expiration Date Visits Requ ested Visits Authorized [id number] Closed 07/05/2021 07/05/2022 1 1 Encounter Details Date Type Department Care Team Description 08/24/2021 Ancillary Procedure [facility] Chris De Leon, Cardiac pacemaker in [facility] situ Heart Care [address] [facility] [address] [place] [address] [place] [phone] Social History Tobacco Use Types Packs/Day Years Used Date Smoking Tobacco: Never Smokeless Tobacco: Never Alcohol Use Standard Drinks/Week Comments No 0 (1 standard drink = 0.6 oz pure alcoho l) Sex Assigned at Date Recorded Not on file COVID-19 Exposure Response Date Recorded In the last month, have you been in contact with No / Unsure 08/24/2021 10:48 AM ASSOCIATE PROFESSOR OF BIOSTATISTICS someone who was confirmed or suspected to have Coronavirus / COVID-19? documented as of this encounter Plan of Treatment Upcoming Encounters Date Type Specialty Care Team Description 08/16/2022 Ancillary Procedure Cardiology Timothy Smith MD [address] [place] [address] (Wo rk) 08/16/2022 Office Visit Cardiology Timothy Smith MD [address] [place] [phone] (Wo rk) documented as of this encounter Procedures Procedure Name Priority Date/Time Associated Comments Diagnosis ICD DEVICE Routine 08/24/2021 11:02 Cardiac pacemaker Result s for this PROGRAMMING EVAL, AM ASSOCIATE PROFESSOR OF BIOSTATISTICS in situ procedure are in DUAL LEAD ICD the results section. documented in this encounter Results ICD DEVICE PROGRAMMING EVAL, DUAL LEAD ICD (08/24/2021 11:02 AM ASSOCIATE PROFESSOR OF BIOSTATISTICS) Component Value Ref Test Analysis Performed Pathologis t Range Method Time At Signature Date Time [id number] [employer] Interrogation Session Implantable [place] [employer] Pulse Generator Apparel Manufacture Instructor Implantable D432 RESONATE EL MEDTRONIC Pulse Generator ICD Model Implantable [id number] MEDTRONIC Pulse Generator Serial Number Type In Clinic MEDTRONIC Interrogation Session Clinic Name [place] [facility]TR[employer]IC Implantable Defibrillator MEDTRONIC Pulse Generator Type Implantable [id number] MEDTRONIC Pulse Generator Implant Date Implantable Lead [employer] Apparel Manufacture Instructor Implantable Lead [address] [place] MEDTRONIC Model 4-Site S Implantable Lead 577635 [employer]IC Serial Number Implantable Lead [id number] MEDTRONIC Implant Date Implantable Lead Bipolar Lead [...] [employer]TRONIC Pacing Threshold Pulse Width Battery Date 81781903606551 MED[employer]ONIC Time of Measurements Battery Status Beginning of MEDTR[employer]IC Service Battery 174 mo MEDTRONIC Remaining Longevity Battery 100 % MEDTR[employer]IC Remaining Percentage Capacitor Charge Reformation MEDTRONIC Type Capacitor Last [id number] MEDTRONIC Charge Date Time Capacitor Charge 9.1 s MEDTRONIC Time Brandon Statistic [id number] MEDTRONIC Date Time Start Brandon Statistic 00223773295971 MEDTRONIC Date Time End Brandon Statistic 4 % MEDTRONIC RV Percent Paced Therapy 0 MEDTRONIC Statistic Recent Shocks Delivered Therapy 0 MEDTRONIC Statistic Recent Shocks Aborted Therapy 8 MEDTRONIC Statistic Recent ATP Delivered Therapy [id number] MEDTRONIC Statistic Recent Date Time Start Therapy 05569336829249 MEDTRONIC Statistic Recent Date Time End Therapy 0 MEDTRONIC Statistic Total Shocks Delivered Therapy 0 MEDTRONIC Statistic Total Shocks Aborted Therapy 8 MEDTRONIC Statistic Total ATP Delivered Therapy 71218171048252 MEDTRONIC Statistic Total Date Time End Episode [...] VT-1 MEDTRONIC Statistic Vendor Type Category Episode [id number] MEDTRONIC Statistic Recent Date Time Start Episode [id number] MEDTRONIC Statistic Recent Date Time End Episode [id number] MEDTRONIC Statistic Recent Date Time Start Episode [id number] MEDTRONIC Statistic Recent Date Time End Episode [id number] MEDTRONIC Statistic Recent Date Time Start Episode [id number] MEDTRONIC Statistic Recent Date Time End Episode [id number] MEDTRONIC Statistic Recent Date Time Start Episode [id number] MEDTRONIC Statistic Recent Date Time End Episode [id number] MEDTRONIC Statistic Recent Date Time Start Episode [id number] MEDTRONIC Statistic Recent Date Time End Episode APM-11 MEDTR[employer]IC Identifier Episode Type Periodic EGM MEDTRONIC Category Episode Date [id number] [employer]ONIC Time Anatomical Region Laterality Modality Other Specimen (Source) Anatomical Collection Method Collection Time Re ceived Time Location / / Volume Laterality 08/24/2021 11:09 AM ASSOCIATE PROFESSOR OF BIOSTATISTICS Narrative 09/06/2021 1:31 PM ASSOCIATE PROFESSOR OF BIOSTATISTICS [employer] Resonate (S) ICD Device Check Patient seen in clinic for device evalua tion and iterative programming. ?? DIGITAL HARDWARE DESIGN ENGINEER: 4% ?? Mode: VVIR 50-130 ?? Underlying [...] with V ra barbara of 200-210 for 2fmt5bah and 2rgy8gnw. Both episodes received ATPx6 a nd was successful after the 6th attempt. VT episode on 08/01/21 at 0923 E GM shows VT for [id number] with V rates of 180-210bpm, ATPx7 was delivered and was successful after the 7th ATP attempt. The other episode of VT occ urred on 07/23/21 at 0832 EGM shows 4wso8cwb of VT with V rates of 200 [...] situ documented in this encounter Care Teams Parts Person Relationship Specialty Start Date End Date Graham Licona MD PCP - General Family Medicine 06/30/21 [facility] [address] [place] [address] Timothy Smith MD Assigned Heart and Vascular 07/23/20 [address] Provider [place] [id number] documented as of this encounter
--- OUTSIDE RECORDS SUMMARY | 2022-07-19 08:20 | XMS_ITS | Encounter Summary ---
:1940 Author Organization [place] Address [address] [facility] [place] [address] Care Team Providers Name Role Phone Slava Hernandez PA-C Primary Care Provider Timothy Smith MD Unavailable Encounter Details Date Type Department Care Team Description 04/28/2021 Telephone [facility] Keyshawn Myers RN [address] [place] [address] Social History Tobacco Use Types [...] [address] [place] [address] (Wo rk) 08/16/2022 Office Visit Cardiology Timothy Smith MD [address] [place] [address] (Wo rk) documented as of this encounter Visit Diagnoses Not on filedocumented in this encounter Care Teams House Mover Helper Relationship Specialty Start Date End Date Slava Hernandez, PCP - General Physician Credit Risk Modeler 07/02/1806/02 PA-C [facility] [address] [place], [place] [phone] Timothy Smith MD Assigned Heart and 07/23/20 [address] Vascular Provider [address] [place] [address] documented as of this encounter
--- OUTSIDE RECORDS SUMMARY | 2022-07-19 08:20 | XMS_ITS | Encounter Summary ---
:1940 Author Organization [place] Address [address] [facility] [place] [address] Care Team Providers Name Role Phone iTmothy Smith MD Unavailable Graham Licona MD Primary Care Provider Reason for Visit Reason Onset Date Comments Implantable Devices 08/02/2021 Encounter Details Date Type Department Care Team Description 08/02/[address] [facility] Sandrine Whitman Implantable Devices [facility] Heart Care [address] [place] [address] Social History Tobacco Use Types Packs/Day [...] 08/01/2021 at 0923. EGM shows VT lasting [id number] with V rates [id number]. ATPx7 was delivered with rhythm breaking after [...] [address] [place] [phone] (Fiorella olvera) 08/16/2022 Office Visit Cardiology Timothy Smith MD [address] [place] [id number] (Fiorella olvera) documented as of this encounter Visit Diagnoses Not on filedocumented in this encounter Care Teams Firearms Expert Relationship Specialty Start Date End Date Graham Licona MD PCP - General Family Medicine 06/30/21 [facility] [address] [place] [address] Timothy Smith MD Assigned Heart and Vascular 07/23/20 [address] [facility] [address] [address] Provider [place] [address] documented as of this encounter
--- OUTSIDE RECORDS SUMMARY | 2022-07-19 08:20 | XMS_ITS | Encounter Summary ---
:1940 Author Organization [place] Address [address] [facility] [place] [address] Care Team Providers Name Role Phone Timothy Smith MD Unavailable Graham Licona MD Primary Care Provider Encounter Details Date Type Department Care Team Description 07/14/2021 Documentation Only [facility] Heart Thao [place], [facility] [place] RN [address] [facility] [address] [place] [phone] Social History Tobacco Use Types Packs/Day Years [...] [address] [place] [address] (Wo rk) 08/16/2022 Office Visit Cardiology Timothy Smith MD [address] [place] [phone] (Wo rk) documented as of this encounter Visit Diagnoses Not on filedocumented in this encounter Care Teams Therapeutic Recreation Specialist Relationship Specialty Start Date End Date Graham Licona MD PCP - General Family Medicine 06/30/21 [facility] [address] [place] [address] Timothy Smith MD Assigned Heart and Vascular 07/23/20 [address] Provider [place] [address] documented as of this encounter
--- OUTSIDE RECORDS SUMMARY | 2022-07-19 08:20 | XMS_ITS | Encounter Summary ---
:1940 Author Organization [place] Address [address] [place] [address] Care Team Providers Name Role Phone Slava Hernandez PA-C Primary Care Provider Timothy Smith MD Unavailable Reason for Visit CV Testing (Routine) - Closed Specialty Diagnoses / Procedures Referred By Contact Refer red To Contact Diagnoses Cardiac pacemaker in situ SSS (sick sinus syndrome) (H) Steven Canchola Procedures Cardiac Device Check - Remote [address] [place] [address] Referral ID Status Reason Start Date Expiration Date Visits Requ ested Visits Authorized [id number] Closed 02/16/2021 02/16/2022 1 1 Encounter Details Date Type Department Care Team Description 05/18/2021 Ancillary [facility] Steven Canchola iac pacemaker in situ; Procedure [facility] MD Jose SSS (sick sinus syndrome) (H) Heart Care [address] [facility] [address] [place] [address] [place] [phone] (Wo rk) [address] [phone] Social History Tobacco Use Types Packs/Day Years [...] Smith MD [address] [place] [phone] (Wo rk) 08/16/2022 Office Visit Cardiology Timothy Smith MD [address] [place] [phone] (Wo rk) documented as of this encounter [...] Range Method Time At Signature Date Time [id number] [employer] Interrogation Session Implantable [place] [employer] Pulse Generator Guide Alpine Implantable L121 ESSENTIO EL [employer]ONIC Pulse Generator Model Implantable [id number] [employer]ONIC Pulse Generator Serial Number Type Remote MEDTRONIC Interrogation Session Clinic Name [facility] [employer]IC Implantable Pacemaker [employer]ONIC Pulse Generator Type Implantable [id number] MED[employer]ONIC Pulse Generator Implant Date Implantable Lead [facility] RAUL Guide Alpine Implantable Lead 2087TC Tendril MEDTRONI C Model STS Implantable Lead [id number] [employer]ON[employer] Serial Number Implantable Lead [id number] MEDTRONIC Implant Date Implantable Lead Bipolar Lead [employer] Polarity Type Implantable Lead UNKNOWN [employer] Location Detail 1 Implantable Lead Right Atrium [employer] Location Implantable Lead [facility] RAUL Guide Alpine Implantable Lead 2087TC Tendril MEDTRONI C Model STS Implantable Lead [id number] [employer]IC Serial Number Implantable Lead [id number] MEDTRONIC [...] 100 % MEDTRONIC Remaining Percentage Brandon Statistic [id number] MEDTRONIC Date Time Start Brandon Statistic [id number] MEDTRONIC Date Time End Brandon Statistic 0 [...] [place] MEDTRONIC Statistic Vendor Type Category Episode [id number] MEDTRONIC Statistic Recent Date Time Start Episode [id number] [employer]TRONIC Statistic Recent Date Time End Episode [id number] [employer]TRONIC Statistic Recent Date Time Start Episode [id number] MEDTRONIC Statistic Recent Date Time End Episode [id number] MEDTRONIC Statistic Recent Date Time Start Episode [id number] MEDTRONIC Statistic Recent Date Time End Episode [id number] MEDTRONIC Statistic Recent Date Time Start Episode [id number] MEDTRONIC Statistic Recent Date Time End Episode APM-99 MEDTRONIC Identifier Episode Type Periodic EGM MEDTRONIC Category Episode Date [id number] MEDTRONIC Time Episode [id number] MEDTRONIC Identifier Episode Type Other MEDTRONIC Category Episode Date [id number] MEDTRONIC Time Episode V-1629 MEDTRONIC Identifier Episode Type [place] [employer]TRONIC Category Episode Date [id number] MEDTRONIC Time Episode Duration 14 s MEDTRONIC Episode V-1628 MEDTRONIC Identifier Episode Type [place] [employer]TRONIC Category Episode Date [id number] MEDTRONIC Time Episode Duration 16 s MEDTRONIC Anatomical Region Laterality Modality Other Specimen (Source) Anatomical Collection Method Collection Time Re ceived Time Location / / Volume Laterality 05/18/2021 12:41 AM CDT Narrative 05/24/2021 4:14 PM CDT Local Magnet Essentio (S) Remote PPM Device Check JOB ESTIMATOR: 30% Mode: VVIR 60-130 Presenting Rhythm: JOB ESTIMATOR Heart Rate: Adequate rates per histogram Sensing: [...] dysfunction documented in this encounter Care Teams Rack Worker Relationship Specialty Start Date End Date Slava Hernandez, PCP - General Physician Head Of Biology 07/02/1806/02 PAIlanaC [facility] [address] [place] [address] Timothy Smith MD Assigned Heart and 07/23/20 [address] Vascular Provider [address] [place] [address] documented as of this encounter
--- OUTSIDE RECORDS SUMMARY | 2022-07-19 08:20 | XMS_ITS | Encounter Summary ---
:1940 Author Organization [place] Address [address] [facility] [place] [address] Care Team Providers Name Role Phone Timothy Smith MD Unavailable Graham Licona MD Primary Care Provider Reason for Visit Auth/Cert Specialty Diagnoses / Procedures Referred By Contact Refer red To Contact Med Surg Diagnoses Sustained VT (ventricular tachycardia) Cardiac pacemaker in situ VT Care Suites Procedures HC ICD IMPLANT, SINGLE / DUAL W LEAD INSERTION/REPOSITIONING Implantable Cardioverter-Defibrillator (ICD) [address] [place] [place] [address] Phone: Referral ID Status Reason Start Date Expiration Date Visits Requ ested Visits Authorized [id number] 1 1 Encounter Details Date Type Department Care Team Description 07/04/2021 Surgery [facility] Kaur De Leon MD [facility] [address] Card ioverter-Defibrillat Heart Care [address] or (ICD) [address] [place] [address] [place] [address] [phone] Surgery Details Date/Time Status Location OR Service Patient Class Case Case Trauma Class Type Case? 07/04/21 2:00 Posted HEART Cath Cardiology Outpatient PM CARDIAC Lab 4 LOG MANAGER Panel 1 Procedure LRB Anes Op Region Wound Class Commen ts Implantable N/A Conscious Sedation Heart ICD I mplant, Cardioverter-Defibrill Sarah /De Leon, Lucia Sci, ator (ICD) prep [...] documented in this encounter Discharge Instructions Discharge Anila Combs RN - 07/04/2021 4:40 PM CDT ICD [...] If you need to change it, use [id number] gauze and a large clear bandage. ??? [...] 10 minutes. ??? Once bleeding stops, call [facility] Heart Clinic as soon as you [...] ??? Follow up with Device Clinic at [facility] Heart Clinic of patient preference in [...] Device Safety: ??? Please refer to device digital forensic analyst???s booklet for further information. [facility] Heart at [place]: [phone] [facility] (7 days a week) documented in this [...] Coronary artery disease needed for chest involving [place] coronary pain artery of [place] heart without angina pectoris omeprazole (PRILOSEC) 20 [...] All personal belongings taken w/ pt. Trudi Coffman RN - 07/04/2021 3:21 PM CDT Care [...] Accompanied by: - Prachi Name/phone of DC miniature train driver: ... [phone] Medications held: off blood thinners (Eliquis) for [...] If the visitor has positive symptoms, notify concrete stone fabricating supervisor/manger Per policy, the visitor will need to leave the facility documented in this encounter Plan of Treatment Upcoming Encounters Date Type Specialty Care Team Description 08/16/2022 Ancillary Procedure Cardiology Timothy Smith MD [address] [place] [phone] (Wo rk) 08/16/2022 Office Visit Cardiology Timothy Smith MD [address] [place] [phone] (Wo rk) documented as of this encounter [...] The pacemaker leads were removed the pac SeatID generator and were capped. A pocket was [...] Action ICD RESONATE EL VR DF4 - [id number] ICD ICD RESONATE EL VR DF4 [id number] [email or web address] [email or web address] [id number] ??1 Implante d LEAD ??RELIANCE ENDOTAK DF4 AF 59 CM 027 2 - [id number] Leads LEAD ??RELIANCE ENDOTAK DF4 AF 59 CM 0272 623602 [place] [employer] [place] 739334 ??1 Implanted STIMULATION THRESHOLDS: RV - ??Sense:8.4 [...] Address City/State/ZIP Code Phon e Number [place]ATORY [place] [address] [facility] Lab [address] 1st floor, [...] STRUCTURE OF LEFT Venipuncture / 07/04/2021 12:48 1012/2020 UPPER LIMB / Unknown PM CDT 12:52 PM CDT Unknown Timothy Smith MD LAB - BLOOD ORDERABLES Performing Organization Address City/State/ZIP [place] [address] Care Lab [address] 1st floor, Room 20B EKG 12-lead, [...] RESULTS QTc 528 ms RADIOLOGY RESULTS P Fitzpatrick degrees RADIOLOGY RESULTS R AXIS -79 degrees RADIOLOGY RESULTS T Fitzpatrick 3 degrees RADIOLOGY RESULTS Interpretation Atrial fibrillation with premature ventricular beats RADIOLOGY ECG Left axis deviation RESULTS Right bundle branch block Inferior infarct , age undetermined Abnormal ECG When compared with ECG of 31-MAY-2018 13:40, Atrial fibrillation has replaced Sinus rhythm Confirmed by MD SAUNDRA, KAUR (1984), scientific publications editor TIMA CORONEL ([id number]) on 07/05/2021 6:24:46 PM Specimen Anatomical Collection Method Collection Time Receive d Time (Source) Location / / Volume Laterality 07/04/2021 12:15 07/05/2021 6:24 PM CDT PM CDT Timothy Smith MD ECG ORDERABLES Performing Organization Address City/State/ZIP Code Phon e Number RADIOLOGY RESULTS EP REPORT - HIM SCAN (07/04/2021 12:00 AM CDT) Anatomical Region Laterality Modality Other Specimen [...] Heriberto Gaston RN) Routine, 3 g, Intravenous, PRE-OP/PRE-ID OCEDURE, [...] Heriberto Gaston RN)1414 (Given - Provider: Heriberto Gaston, RN) [...] grams documented in this encounter Care Teams Windows Administrator Relationship Specialty Start Date End Date Graham Licona MD PCP - General Family Medicine 06/30/21 [facility] [address] [place] [address] Timothy Smith MD Assigned Heart and Vascular 07/23/[address] Provider [place] [address] documented as of this encounter
--- OUTSIDE RECORDS SUMMARY | 2022-07-19 08:20 | XMS_ITS | Encounter Summary ---
:1940 Author Organization [place] Address [address] [facility] [place] [address] Care Team Providers Name Role Phone Timothy Smith MD Unavailable Graham Licona MD Primary Care Provider Encounter Details Date Type Department Care Team Description 07/14/2021 Documentation Only [facility] Heart Trung, S ananda C, Clinic [place] SANTANA [address] [facility] [address] [facility] [address] [place] [address] [place] [phone] (Wo rk) Social History Tobacco Use Types [...] [address] [place] [phone] (Wo rk) 08/16/2022 Office Visit Cardiology Timothy Smith MD [address] [place] [phone] (Wo rk) documented as of this encounter Visit Diagnoses Not on filedocumented in this encounter Care Teams Coding Assistant Relationship Specialty Start Date End Date Graham Licona MD PCP - General Family Medicine 06/30/21 [facility] [address] [place] [address] Timothy Smith MD Assigned Heart and Vascular 07/23/20 [address] Provider [place] [address] documented as of this encounter
--- OUTSIDE RECORDS SUMMARY | 2022-07-19 08:20 | XMS_ITS | Encounter Summary ---
:1940 Author Organization [place] Address [address] [facility] [place] [address] Care Team Providers Name Role Phone Slava Hernandez PA-C Primary Care Provider Timothy Smith MD Unavailable Encounter Details Date Type Department Care Team Description 06/29/2021 Orders Only [facility] Tony Reyes Sustai ned [facility] RN (ventricu lar Heart Care tachycardia) (H) [address] [facility] (Primary Dx) [facility] [address] [place] [address] Social [...] [address] [place] [address] (Wo rk) 08/16/2022 Office Visit Cardiology Timothy Smith MD [address] [place] [address] (Wo rk) documented as of this encounter Visit Diagnoses Diagnosis Sustained VT (ventricular tachycardia) - Primary Paroxysmal ventricular tachycardia documented in this encounter Care Teams Information Assistant Relationship Specialty Start Date End Date Slava Hernandez, PCP - General Physician Perforator Typist 07/02/1806/02 PA-C [facility] [address] [place], [place] [phone] Timothy Smith MD Assigned Heart and 07/23/20 [address] Vascular Provider [address] [place] [address] documented as of this encounter
--- OUTSIDE RECORDS SUMMARY | 2022-07-19 08:20 | XMS_ITS | Encounter Summary ---
:1940 Author Organization [place] Address [facility] [place] [address] Care Team Providers Name Role Phone Slava Hernandez PAIlanaC Primary Care Provider Timothy Smith MD Unavailable [...] [address] [place] [address] (Wo rk) 08/16/2022 Office Visit Cardiology Timothy Smith MD [address] [place] [phone] (Wo rk) documented as of this encounter Visit Diagnoses Not on filedocumented in this encounter Care Teams Wind Turbine Machinist Relationship Specialty Start Date End Date Slava Hernandez, PCP - General Physician Brand Specialist 07/02/1806/02 [facility] [address] [facility] [place] [address] Timothy Smith MD Assigned Heart and 07/23/20 [address] Vascular Provider [address] [place] [address] documented as of this encounter
--- OUTSIDE RECORDS SUMMARY | 2022-07-19 08:20 | XMS_ITS | Encounter Summary ---
:1940 Author Organization [place] Address [address] [facility] [place] [address] Care Team Providers Name Role Phone Timothy Smith MD Unavailable Graham Licona MD Primary Care Provider Encounter Details Date Type Department Care Team Description 07/01/2021 [facility] for screening for Hospital other viral diseases [address] [place] [address] Social History Tobacco Use [...] Procedure Cardiology Timothy Smith MD [address] [place] [phone] (Wo rk) 08/16/2022 Office Visit Cardiology Timothy Smith MD [address] [place] [phone] (Wo rk) documented as of this encounter [...] using the Aptima SARS-CoV-2 Assay on the [employer] Instrument System. Additional in formation about this [...] COVID-19. This test was validated by the [facility] Infectious Diseases Diagnostic Laboratory. This lab oratory is certified under the Clinical Laboratory Improvement Amen dments of 1987 (CLIA-88) as qualified to perform high complexity lab oratory testing. Timothy Smith MD LAB - MICRO GENERAL ORDERABL ES Performing Organization Address City/State/ZIP Code Phon e Number [facility] [place] [phone] Diag. Lab [address] [facility], [address] [facility] Infectious [place], [place] [phone] Diseases Diagnostic [address], [facility] Lab (IDDL) [address] [facility], [address] documented in this encounter Visit Diagnoses Diagnosis Encounter for screening for other viral diseases documented in this encounter Care Teams Tape Recorder Mechanic Relationship Specialty Start Date End Date Graham Licona MD PCP - General Family Medicine 06/30/21 [facility] [address] [place] [address] Timothy Smith MD Assigned Heart and Vascular 07/23/20 [address] Provider [place] [address] documented as of this encounter
--- OUTSIDE RECORDS SUMMARY | 2022-07-19 08:20 | XMS_ITS | Encounter Summary ---
:1940 Author Organization [place] Address [address] [place] [address] Care Team Providers Name Role Phone Timothy Smith MD Unavailable Graham Licona MD Primary Care Provider Reason for Visit Auth/Cert Specialty Diagnoses / Procedures Referred By Contact Refer red To Contact Med Surg Diagnoses Sustained VT (ventricular tachycardia) Cardiac pacemaker in situ VT Care Suites Procedures HC ICD IMPLANT, SINGLE / DUAL W LEAD INSERTION/REPOSITIONING Implantable Cardioverter-Defibrillator (ICD) [address] [address] Phone: Referral ID Status Reason Start Date Expiration Date Visits Requ ested Visits Authorized [id number] 1 1 Encounter Details Date Type Department Care Team Description 07/04/2021 Hospital Encounter [facility] Timothy Smith MD [address] [place] [address] Sustained VT (ventricular tachycardia) ( H); [facility] Kaur De Leon MD [address] [place] [address] Cardiac [...] If you need to change it, use [id number] gauze and a large clear bandage. ??? [...] 10 minutes. ??? Once bleeding stops, call [facility] Heart Clinic as soon as you can. Call 911 right away if you have heavy bleeding or bleeding that does not stop. Medicines: ??? Take your medications, including blood thinners, unless your provider tells you not to. ??? If you have stopped any medicines, check with your provider about when to restart them. Follow Up Appointments: ??? Follow up with Device Clinic at [facility] Heart Clinic of patient preference in 7- [...] says you have a defibrillator (ICD). Go [email or web address]. ??? Always tell doctors, dentists and other [...] Device Safety: ??? Please refer to device focuser???s booklet for further information. [facility] at [place]: [phone] UMP (7 days a week) documented in [...] Coronary artery disease needed for chest involving cherokee coronary pain artery of cherokee heart without angina pectoris omeprazole (PRILOSEC) 20 [...] Accompanied by: - Prachi Name/phone of DC driver examiner: ... [phone] Medications held: off blood thinners (Eliquis) for [...] If the visitor has positive symptoms, notify shipfitters supervisor/manger Per policy, the visitor will need to leave the facility documented in this encounter Plan of Treatment Upcoming Encounters Date Type Specialty Care Team Description 08/16/2022 Ancillary Procedure Cardiology Timothy Smith MD [address] [place] [id number] (Wo rk) 08/16/2022 Office Visit Cardiology Timothy Smith MD [address] [place] [address] (Wo rk) documented as of this encounter [...] sutures. The pacemaker leads were removed the [employer] generator and were capped. A pocket was [...] Action ICD RESONATE EL VR DF4 - [id number] ICD ICD RESONATE EL VR DF4 [id number] [employer] [place] 418005 ??1 Implante d LEAD ??RELIANCE ENDOTAK DF4 AF 59 CM 027 2 - [id number] Leads LEAD ??RELIANCE ENDOTAK DF4 AF 59 CM 0272 [id number] [employer] [place] 686948 ??1 Implanted STIMULATION THRESHOLDS: RV - ??Sense:8.4 [...] Address City/State/ZIP [place] [address] [phone] [facility] [address] 1st floor, [...] Address City/State/ZIP [place] [address] [phone] [facility] [address] 1st floor, Room 20B EKG 12-lead, tracing only (07/04/2021 12:15 PM CDT) Component Value Ref Range Test Analysis Performed Pathologis t Method Time At Signature Systolic Blood mmHg RADIOLOGY Pressure RESULTS Diastolic Blood mmHg RADIOLOGY Pressure RESULTS Ventricular Rate 96 BPM RADIOLOGY RESULTS Atrial Rate 94 BPM RADIOLOGY RESULTS MA Interval ms RADIOLOGY RESULTS QRS Duration 140 ms RADIOLOGY RESULTS QT 418 ms RADIOLOGY RESULTS QTc 528 ms RADIOLOGY RESULTS P [place] degrees RADIOLOGY RESULTS R AXIS -79 degrees RADIOLOGY RESULTS T [place] 3 degrees RADIOLOGY RESULTS Interpretation Atrial fibrillation with premature ventricular beats RADIOLOGY ECG Left axis deviation RESULTS Right bundle branch block Inferior infarct , age undetermined Abnormal ECG When compared with ECG of 31-MAY-2018 13:40, Atrial fibrillation has replaced Sinus rhythm Confirmed by MD SAUNDRA, KAUR (1984), commissioning editor TIMA CORONEL ([id number]) on 07/05/2021 6:24:46 PM Specimen Anatomical Collection [...] Heriberto Gaston RN) Routine, 3 g, Intravenous, PRE-OP/PRE-MA OCEDURE, Starting on Sun07/04/21 at 1200, For 1 dose, Give dose within 1 hour PRIOR to procedure in pre-procedure area (Outpatients), or, on Patient Care Unit (In patients) PRIOR to arrival in EP lab. Ca EP lab to coordinate start time., Indications: [...] Gaston RN)1358 (Given - Provider: Heriberto Gaston RN)1423 (Given - Provider: Heriberto Gaston RN) ONCE PRN, Administer over 3-5 Minutes, S tarting on Sun07/04/21 at 1350, Cardiac Intra-procedure lidocaine 1 % (CANCELED) 1401 (G iven - Provider: Heriberto Gaston RN) ONCE PRN, Starting on Sun07/04/21 at 1401, Cardiac Intra-procedu re midazolam (VERSED) injection (CANCELED) 1350 (Given - Provider: Heriberto Gaston RN)1358 (Given - Provider: Heriberto Gaston, SIENNA)1414 (Given - Provider: Heriberto Gaston RN) Administer [...] grams documented in this encounter Care Teams Youth Counselor Relationship Specialty Start Date End Date Graham Licona MD PCP - General Family Medicine 06/30/21 [facility] [address] [place] [address] Timothy Smith MD Assigned Heart and Vascular 07/23/20 [address] Provider [place] [address] documented as of this encounter
--- OUTSIDE RECORDS SUMMARY | 2022-07-19 08:20 | XMS_ITS | Encounter Summary ---
:1940 Author Organization [place] Address [address] [place] [address] Care Team Providers Name Role Phone Timothy Smith MD Unavailable Graham Licona MD Primary Care Provider Encounter Details Date Type Department Care Team Description 07/05/2021 Telephone [facility] Keyshawn Myers RN [facility] [address] [place] [address] Social History Tobacco Use Types [...] device check scheduled: 07/14/21 at 11:00am in [employer]. Pt states understanding of all instructions. documented in this encounter Plan of Treatment Upcoming Encounters Date Type Specialty Care Team Description 08/16/2022 Ancillary Procedure Cardiology Timothy Smith MD [address] [place] [address] (Wo rk) 08/16/2022 Office Visit Cardiology Timothy Smith MD [address] [place] [address] (Wo rk) documented as of this encounter Visit Diagnoses Not on filedocumented in this encounter Care Teams Bottle Caser Relationship Specialty Start Date End Date Graham Licona MD PCP - General Family Medicine 06/30/21 [facility] [address] [place] [address] Timothy Smith MD Assigned Heart and Vascular 07/23/20 [address] Provider [place] [address] documented as of this encounter
--- OUTSIDE RECORDS SUMMARY | 2022-07-19 08:20 | XMS_ITS | Encounter Summary ---
:1940 Author Organization [place] Address [address] [facility] [place] [address] Care Team Providers Name Role Phone Timothy Smith MD Unavailable Graham Licona MD Primary Care Provider Reason for Visit Reason Onset Date Comments Implantable Devices 07/25/2021 Alert for VT requiri ng ATP Encounter Details Date Type Department Care Team Description 07/25/2021 Telephone [facility] Sintia Muhammad, Impl antable Devices [facility] RN (Alert fo r VT requiring Heart Care ATP) [address] [place] [phone] Social History Tobacco Use Types Packs/Day [...] clinic phone number provided. Pt is on [employer] XL. Dr. Smith was previously notified for frequent NSVT episodes after 1 week check on 07/14/21 and recommended observation only at that time due to patient being asymptomatic and having a hx of chronic renalinsufficiency. Will route update to Dr. Smith re: continued NSVT episodes and ATP therapy received. PSchultz, RN ICD Therapy Settings: VT episode requiring ATPx6: documented in this encounter Plan of Treatment Upcoming Encounters Date Type Specialty Care Team Description 08/16/2022 Ancillary Procedure Cardiology Timothy Smith MD [address] [place] [address] (Wo rk) 08/16/2022 Office Visit Cardiology Timothy Smith MD [address] [place] [address] (Wo rk) documented as of this encounter Visit Diagnoses Not on filedocumented in this encounter Care Teams Newscast Producer Relationship Specialty Start Date End Date Graham Licona MD PCP - General Family Medicine 06/30/21 [facility] [address] [place] [address] Timothy Smith MD Assigned Heart and Vascular 07/23/20 [address] Provider [place] [address] documented as of this encounter
--- OUTSIDE RECORDS SUMMARY | 2022-07-19 08:20 | XMS_ITS | Encounter Summary ---
:1940 Author Organization [place] Address [address] [place] [address] Care Team Providers Name Role Phone Slava Hernandez PA-C Primary Care Provider Timothy Smith MD Unavailable Reason for Referral (Routine) - Closed Specialty Diagnoses / Procedures Referred By Contact Refer red To Contact Diagnoses Sustained VT (ventricular tachycardia) Cardiac pacemaker in situ [facility] Procedures Case Request EP: Implantable Cardioverter-Defibrillator (ICD) [address] [address] [place] [address] Referral ID Status Reason Start Date Expiration Date Visits Requ ested Visits Authorized [id number] Closed 06/23/2021 06/23/2022 1 1 onsultation (Routine) - Closed Specialty Diagnoses / Procedures Referred By Contact Refer red To Contact Diagnoses Sustained VT (ventricular tachycardia) Cardiac pacemaker in situ [facility] [address] [address] [place] [address] Referral ID Status Reason Start Date Expiration Date Visits Requ ested Visits Authorized [id number] Closed 06/23/2021 06/23/2022 1 1 Reason for Visit Reason Onset Date Comments Implantable Devices 06/23/2021 Encounter Details Date Type Department Care Team Description 06/23/2021 Telephone [facility] Sandrine Whitman Implantable Devices [facility] Heart [address] [facility] [address] [place] [address] Social History Tobacco Use Types [...] [address] [place] [address] (Wo rk) 08/16/2022 Office Visit Cardiology Timothy Smith MD [address] [place] [address] (Wo rk) Scheduled Referrals Name Type Priority Associated Order Schedule Diagnoses Follow-Up with Referral Routine: Next Sustained VT Expected: [facility] Shift Lead available opening (ventricular tachycardia) (H) (Approximate), Cardiac pacemaker Expires: in situ 06/23/2022 documented as of this encounter Visit Diagnoses Diagnosis Sustained VT (ventricular tachycardia) - Primary Paroxysmal ventricular tachycardia Cardiac pacemaker in situ documented in this encounter Care Teams Hematology Technician Relationship Specialty Start Date End Date Slava Hernandez, PCP - General Physician Drilling Rig Operator 07/02/1806/02 PA-C [facility] [address] [place] [address] Timothy Smith MD Assigned Heart and 07/23/[address] Vascular Provider [address] [place] [address] documented as of this encounter
--- OUTSIDE RECORDS SUMMARY | 2022-07-19 08:21 | XMS_ITS | Encounter Summary ---
:1940 Author Organization [place] Address [address] [place] [address] Care Team Providers Name Role Phone Slava Hernandez PA-C Primary Care Provider Ankur Smith MD Unavailable Reason for Referral (Routine) - Closed Specialty Diagnoses / Procedures Referred By Contact Refer red To Contact Diagnoses Sustained VT (ventricular tachycardia) [facility] [address] [place] [address] Referral ID Status Reason Start Date Expiration Date Visits Requ ested Visits Authorized [id number] Closed 02/17/2021 02/17/2022 1 1 V Testing [...] INITIAL SUBSTANCE [facility] US GUIDE FOR PERICARDIOCENTESIS [address] [place] [address] [facility] ECHO MYOCARD BX ZZC INJECTION, PERFLUTREN LIPID MICROSPHERES, PER ML [facility] STATISTIC IV PUSH SINGLE INITIAL SUBSTANCE MS ECHO MYOCARD BX MS INJECTION, PERFLUTREN LIPID MICROSPHERES, PER ML MS TTE W/DOPPLER, COMPLETE [address] MS IV PUSH SINGLE, INITIAL S UBSTANCE MS TTE W/DOPPLER, COMPLETE MS TTE W/DOPPLER, COMPLETE HC US GUIDE FOR PERICARDIOCENTESIS HC ECHO MYOCARD BX HC IV PUSH SINGLE, INITIAL SUBSTANCE HC STATISTIC IV [place]USH [place] [address] HC ECHO COMPLETE W DOPPLER W CONTRAST HC ECHO COMPLETE W DOPPLER W/O CONTRAST [phone] Referral ID Status Reason Start Date Expiration Date Visits Requ ested Visits Authorized [id number] Closed 02/17/2021 02/17/2022 1 1 Reason for Visit Reason Onset Date Comments Implantable Devices 02/16/2021 PPM, NSVT/sustained VT Encounter Details Date Type Department Care Team Description 02/16/2021 Telephone [facility] [place] Im[facility] Devices [facility] Triston Butler RN (PPM, NSVT/sustained VT) [address] [facility] [address] [place] [address] Social History Tobacco Use Types [...] Care Team Description 08/16/2022 Ancillary Procedure Cardiology Ankur Smith MD [address] [place] [id number] (Wo rk) 08/16/2022 Office Visit Cardiology Ankur Smith MD [address] [place] [id number] (Wo rk) Scheduled Referrals Name Type Priority Associated Diagnoses Order S chedule Follow-Up with Referral Routine Sustained VT Expected: Medical Lab Assistant (ventricular 03/20/20 21 tachycardia) (H) (Approximat e), Expires: 02/17/2022 documented as of this encounter Results ECHO COMPLETE WITH CONTRAST (03/21/2021 1:18 PM CDT) Anatomical Region Laterality Modality Echocardiography Specimen (Source) Anatomical Collection Method Collection Time Re ceived Time Location / / Volume Laterality 03/21/2021 12:48 PM CDT Narrative 03/21/2021 2:22 PM CDT [id number]^KEELEY^ANKUR [facility]ch[facility] Laboratory [address] [place] [address] Name: RADHA VILLA : 1940 Study Date: 03/21/2021 12:48 PM Age: 80 yrs Gender: Male Patient Location: [facility] Reason For Study: Sustained VT (ventricu lar tachycardia) (H) Ordering Physician: ANKUR SMITH Referring Physician: ANKUR SMITH Performed By: MCKAY Saenz BSA: 2.5 m2 Height: 71 in Weight: 285 lb HR: 73 BP: 100/68 mmHg Procedure Complete Echo Adult. Vijaya ([facility] #[id number]) given intravenously. Interpretation Summary The visual ejection [...] note might be different from the original. [id number]^KEELEY^[facility] [address] [facility] [address] [place] [address] Name: RADHA VILLA : 1940 Study Date: 03/21/2021 12:48 PM Age: 80 yrs Gender: Male Patient Location: [facility] Reason For Study: Sustained VT (ventricu lar tachycardia) (H) Ordering Physician: ANKUR SMITH Referring Physician: ANKUR SMITH Performed By: MCKAY Saenz BSA: 2.5 m2 Height: 71 in Weight: 285 lb HR: 73 BP: 100/68 mmHg Procedure Complete Echo Adult. Optison ([facility] #[id number]) given intravenously. Interpretation Summary The visual ejection [...] tachycardia documented in this encounter Care Teams Compounding And Finishing Supervisor Relationship Specialty Start Date End Date Slava Hernandez, PCP - General Physician Climatology Professor 07/02/1806/02 PA-C [facility] [address] [place] [address] Ankur Smith MD Assigned Heart and 07/23/20 [address] [facility] [address] Vascular Provider [address] [place] [address] documented as of this encounter
--- OUTSIDE RECORDS SUMMARY | 2022-07-19 08:21 | XMS_ITS | Encounter Summary ---
:1940 Author Organization [place] Address [address] [facility] [place] [address] Care Team Providers Name Role Phone Slava Hernandez PA-C Primary Care Provider Reason for Visit CV Testing (Routine) - Closed Specialty Diagnoses / Procedures Referred By Contact Refer red To Contact Diagnoses Cardiac pacemaker in situ Basil Guadalupe MD Procedures Cardiac Device Check - Remote [address] [place] [address] [place] [address] Referral ID Status Reason Start Date Expiration Date Visits Requ ested Visits Authorized [id number] Closed 01/27/2020 01/26/2021 1 1 Encounter Details Date Type Department Care Team Description 05/04/2020 Ancillary Procedure [facility] Basli Guadalupe ardiac pacemaker in [facility] MD Tawanda situ Heart Care [address] [facility] [address] [place] [address] [facility] [address] [place] [address] [place] [phone] [address] (Work) [phone] Social History Tobacco Use Types Packs/Day Years Used Date Smoking Tobacco: Never Smokeless Tobacco: Never Alcohol Use Standard Drinks/Week Comments No 0 (1 standard drink = 0.6 oz pure alcoho l) Sex Assigned at Date Recorded Not on file documented as of this encounter Plan of Treatment Upcoming Encounters Date Type Specialty Care Team Description 08/16/2022 Ancillary Procedure Cardiology Timothy Smith MD [address] [place] [address] (Wo rk) 08/16/2022 Office Visit Cardiology Timothy Smith MD [address] [place] [address] (Wo rk) documented as of this encounter [...] Range Method Time At Signature Date Time [id number] [employer] Interrogation Session Implantable [employer]IC Pulse Generator Extractor Loader And Unloader Implantable L121 ESSENT[address] EL [employer] Pulse Generator Model Implantable 996236 [employer] Pulse Generator Serial Number Type Remote [employer] Interrogation Session Clinic Name [facility] [employer] Implantable Pacemaker [employer] Pulse Generator Type Implantable [id number] [employer] Pulse Generator Implant Date Implantable Lead [facility] MEDTRO RAUL Extractor Loader And Unloader Implantable Lead 2088TC Tendril MEDTRONI C Model STS Implantable Lead [id number] [employer] Serial Number Implantable Lead [id number] [employer] Implant Date Implantable Lead Bipolar Lead [employer] Polarity Type Implantable Lead UNKNOWN [employer] Location Detail 1 Implantable Lead Right Atrium [employer] Location Implantable Lead [facility] MEDTRO RAUL Extractor Loader And Unloader Implantable Lead 2088TC Tendril MEDTRONI C Model STS Implantable Lead [id number] [employer] Serial Number Implantable Lead [id number] [employer] Implant Date Implantable Lead Bipolar Lead [...] 100 % MEDTR[employer] Remaining Percentage Brandon Statistic [id number] [employer]TRONIC Date Time Start Brandon Statistic [id number] MEDTRONIC Date Time End Brandon Statistic 0 [...] [place] MEDTRONIC Statistic Vendor Type Category Episode [id number] [employer]TR[employer] Statistic Recent Date Time Start Episode [id number] [employer] Statistic Recent Date Time End Episode [id number] [employer]TR[employer] Statistic Recent Date Time Start Episode [id number] [employer] Statistic Recent Date Time End Episode [id number] [employer] Statistic Recent Date Time Start Episode [id number] [employer] Statistic Recent Date Time End Episode [id number] [employer] Statistic Recent Date Time Start Episode [id number] [employer]TR[employer]IC Statistic Recent Date Time End Episode APM-95 [employer]IC Identifier Episode Type Periodic EGM [employer]IC Category Episode Date [id number] MED[employer]ONIC Time Episode [id number] [employer]IC Identifier Episode Type Other MEDTRONIC Category Episode Date [id number] MED[employer]IC Time Episode V-1554 [employer]IC Identifier Episode Type VT [employer]IC Category Episode Date [id number] [employer] Time Episode Duration 13 s MEDTRONIC Episode V-1553 MED[employer]IC Identifier Episode Type VT [employer]TR[employer]IC Category Episode Date [id number] [employer] Time Episode Duration 18 s MEDTRONIC Episode V-1552 MED[employer]IC Identifier Episode Type VT [employer]IC Category Episode Date [id number] [employer] Time Episode Duration 14 s MEDTRONIC Episode V-1551 [employer]IC Identifier Episode Type VT [employer]IC Category Episode Date [id number] [employer] Time Episode Duration 13 s [employer] Anatomical Region Laterality Modality Other Specimen (Source) Anatomical Collection Method Collection Time Re ceived Time Location / / Volume Laterality 05/04/2020 12:41 AM CDT Narrative 05/05/2020 5:21 PM CDT [employer] Essentio (S) Remote PPM Device Check VICE PRESIDENT QUALITY ASSURANCE: 36%, Chronic AFib, taking Eliquis Mode: VVIR Presenting Rhythm: VICE PRESIDENT QUALITY ASSURANCE Heart Rate: adequate heart rates per his [...] situ documented in this encounter Care Teams Dry Food Products Mixer Relationship Specialty Start Date End Date Slava Hernandez PA-C PCP - General Physician Filemaker Developer 07/02/18 06/29/[address] [address] documented as of this encounter
--- OUTSIDE RECORDS SUMMARY | 2022-07-19 08:21 | XMS_ITS | Encounter Summary ---
:1940 Author Organization [place] Address [address] [facility] [place] [address] Care Team Providers Name Role Phone Mary Slava Estrella PA-C Primary Care Provider Timothy Smith MD Unavailable Reason for Visit Reason Onset Date Comments Refill Request 08/30/2020 mail order refill se 08-25-2020-[facility] claims [facility]----re sent Encounter Details Date Type Department Care Team Description 08/30/2020 Refill [facility] Zarina Smith MD Refill Request (mail [facility] [address] order refill sent [address] [facility] [address] 08-25-2020-[facility] claims [address] [place] [address] they dont have it----re [place] [phone] sent) [phone] Social History Tobacco Use Types Packs/Day Years Used Date Smoking Tobacco: Never Smokeless Tobacco: Never Alcohol Use Standard Drinks/Week Comments No 0 (1 standard drink = 0.6 oz pure alcoho l) Sex Assigned at Date Recorded Not on file documented as of this encounter Plan of Treatment Upcoming Encounters Date Type Specialty Care Team Description 08/16/2022 Ancillary Procedure Cardiology Timothy Smith MD [address] [place] [phone] (Wo rk) 08/16/2022 Office Visit Cardiology Timothy Smith MD [address] [place] [address] (Wo rk) documented as of this encounter Visit Diagnoses Diagnosis Paroxysmal atrial fibrillation (H) Atrial fibrillation documented in this encounter Care Teams Ground School Instructor Relationship Specialty Start Date End Date Slava Hernandez, PCP - General Physician Mexican Food Machine Tender 07/02/1806/02 PA-C [facility] [address] [place] [address] Timothy Smith MD Assigned Heart and 07/23/20 [address] Vascular Provider [address] [place] [phone] documented as of this encounter
--- OUTSIDE RECORDS SUMMARY | 2022-07-19 08:21 | XMS_ITS | Encounter Summary ---
:1940 Author Organization [place] Address [facility] [place] [address] Care Team Providers Name Role Phone Slava [...] [address] [place] [address] (Wo rk) 08/16/2022 Office Visit Cardiology Timothy Smith MD [address] [place] [phone] (Wo rk) documented as of this encounter Visit Diagnoses Not on filedocumented in this encounter Care Teams Engineering Intern Relationship Specialty Start Date End Date Slava Hernandez, PCP - General Physician Harpsichord Maker 07/02/1806/02 [facility] [address] [facility] [address] Timothy Smith MD Assigned Heart and 07/23/20 [address] Vascular Provider [address] [place] [address] documented as of this encounter
--- OUTSIDE RECORDS SUMMARY | 2022-07-19 08:21 | XMS_ITS | Encounter Summary ---
:1940 Author Organization [place] Address [address] [place] [address] Care Team Providers Name Role Phone Slava Hernandez PA-C Primary Care Provider Timothy Smith MD Unavailable Reason for Referral CV Testing (Routine) - Closed Specialty Diagnoses / Procedures Referred By Contact Refer red To Contact Diagnoses Cardiac pacemaker in situ Chris De Leon MD Procedures Cardiac Device Check - In Clinic [address] [place] [address] Referral ID Status Reason Start Date Expiration Date Visits Requ ested Visits Authorized [id number] Closed 11/16/2020 11/16/2021 1 1 RAL LITHOGRAPHIC WORKER Reason for Visit CV Testing (Routine) - Closed Specialty Diagnoses / Procedures Referred By Contact Refer red To Contact Diagnoses Cardiac pacemaker in situ Chris De Leon MD Procedures Cardiac Device Check - Remote [address] [place] [address] Referral ID Status Reason Start Date Expiration Date Visits Requ ested Visits Authorized [id number] Closed 08/03/2020 08/03/2021 1 1 Encounter Details Date Type Department Care Team Description 11/16/2020 Ancillary Procedure [facility] Chris De Leon Cardiac pacemaker in [facility] situ [facility] Care [address] [facility] [address] [place] [address] [place] [phone] Social History Tobacco Use Types Packs/Day Years [...] Procedure Cardiology Timothy Smith MD [address] [place] [id number] (Wo rk) 08/16/2022 Office Visit Cardiology Timothy Smith MD [address] [place] [id number] (Wo rk) documented as of this encounter Procedures Procedure Name Priority Date/Time Associated Comments Diagnosis INTERROGATION DEVICE Routine 11/16/2020 11:11 Cardiac pacemake r Results for this EVAL REMOTE PACER UP AM GENERAL LITHOGRAPHIC WORKER in situ procedu re are in TO 90 DAYS the results section. documented in this encounter Results PM DEVICE PROGRAMMING EVAL, DUAL LEAD PACER (02/16/2021 9:51 AM CDT) Component Value Ref Test Analysis Performed Pathologis t Range Method Time At Signature Date Time [id number] [employer] Interrogation Session Implantable [employer] Pulse Generator Crossing [place] Implantable L121 ESSENT[place] EL [employer] Pulse Generator Model Implantable [id number] [employer] Pulse Generator Serial Number Type In Clinic [facility] Interrogation Session Clinic Name [facility] [employer] Implantable Pacemaker [employer] Pulse Generator Type Implantable [id number] [employer] Pulse Generator Implant Date Implantable Lead [facility] RAUL Crossing [place] Implantable Lead 8TC Tendril MEDTRONI C Model STS Implantable Lead [id number] [employer] Serial Number Implantable Lead [id number] [employer] Implant Date Implantable Lead Bipolar Lead [employer] Polarity Type Implantable Lead UNKNOWN [employer] Location Detail 1 Implantable Lead Right Atrium [employer] Location Implantable Lead [facility] [employer] RAUL Crossing [place] Implantable Lead 2088TC Tendril [employer]TRONI C Model STS Implantable Lead [id number] [employer] Serial Number Implantable Lead [id number] [employer] Implant Date Implantable Lead Bipolar Lead [...] NSVT [employer]TRONIC Statistic Vendor Type Category Episode [id number] [employer] Statistic Total Date Time End Episode 80 [employer] Statistic Recent Count Episode [place] [facility] Statistic Type Category Episode NSVT [employer] Statistic Vendor Type Category Episode SunOct 15 [employer] Statistic Recent 03:43:58 GENERAL LITHOGRAPHIC WORKER 2019 Date Time Start Episode [id number] [employer] Statistic Recent Date Time End Anatomical Region Laterality Modality Other Specimen (Source) Anatomical Location Collection Method / Collectio n Time Received Time / Laterality Volume 02/16/2021 Narrative 02/21/2021 9:24 AM CDT [email or web address] Essentio (D) Pacemaker Device Check Patient seen in clinic for device evalua tion and iterative programming. AP: NA ?% ?? RUG INSPECTOR: 39 % ?? Mode: VVIR 60-130 ?? [...] UP TO 90 DAYS (11/16/2020 11:11 AM GENERAL LITHOGRAPHIC WORKER) Component Value Ref Test Analysis Performed Pathologis t Range Method Time At Signature Date Time [id number] [employer] Interrogation Session Implantable [employer] Pulse Generator Crossing [place] Implantable L121 ESSENTIO EL [employer] Pulse Generator Model Implantable [id number] [employer] Pulse Generator Serial Number Type Remote [facility] Interrogation Session Clinic Name [place] [facility] Implantable Pacemaker [employer] Pulse Generator Type Implantable [id number] [employer] Pulse Generator Implant Date Implantable Lead [facility] RAUL Crossing [place] Implantable Lead 2087TC Tendril MEDTRONI C Model STS Implantable Lead [id number] [employer] Serial Number Implantable Lead [id number] MED[employer]IC Implant Date Implantable Lead Bipolar Lead [employer] Polarity Type Implantable Lead UNKNOWN [employer] Location Detail 1 Implantable Lead Right Atrium [employer] Location Implantable Lead [facility] [employer] RAUL Crossing [place] Implantable Lead 8TC Tendril MEDTRONI C Model STS Implantable Lead [id number] [employer] Serial Number Implantable Lead [id number] MEDTRONIC [...] 100 % [employer]TR[employer]IC Remaining Percentage Brandon Statistic [id number] MEDTRONIC Date Time Start Brandon Statistic MEDTRONIC [...] [place] MEDTR[employer]IC Statistic Vendor Type Category Episode [id number] [employer]TR[employer]IC Statistic Recent Date Time Start Episode [id number] [employer] Statistic Recent Date Time End Episode [id number] [employer]IC Statistic Recent Date Time Start Episode [id number] [employer]IC Statistic Recent Date Time End Episode [id number] [employer]IC Statistic Recent Date Time Start Episode [id number] [employer]IC Statistic Recent Date Time End Episode [id number] [employer]TR[employer]IC Statistic Recent Date Time Start Episode [id number] [employer]IC Statistic Recent Date Time End Episode APM-97 [employer] Identifier Episode Type Periodic EGM [employer]IC Category Episode Date [id number] MED[employer]IC Time Episode [id number]-[id number] [employer]IC Identifier Episode Type Other MEDTRONIC Category Episode Date [id number] MED[employer]IC Time Episode V-1606 MEDTRONIC Identifier Episode Type [place] [employer]IC Category Episode Date [id number] [employer]IC Time Episode Duration 20 s MEDTRONIC Episode V-1605 MEDTRONIC Identifier Episode Type VT [facility]TR[employer]IC Category Episode Date [id number] [employer]IC Time Episode Duration 14 s MEDTRONIC Episode V-1604 MEDTR[employer]IC Identifier Episode Type VT [employer]TR[employer]IC Category Episode Date [id number] [employer] Time Episode Duration 17 s MEDTRONIC Episode V-1603 MEDTR[employer]IC Identifier Episode Type VT MEDTRONIC Category Episode Date [id number] [employer]IC Time Episode Duration 14 s MEDTRONIC Episode V-1602 MEDTRONIC Identifier Episode Type VT MEDTRONIC Category Episode Vendor VT MEDTRONIC Type Category Episode Date [id number] [employer]IC Time Episode Duration 29 s MEDTRONIC Episode V-1601 MEDTRONIC Identifier Episode Type VT [facility]TR[facility]IC Category Episode Date [id number] [employer]IC Time Episode Duration 16 s MEDTRONIC Episode V-1600 MEDTRONIC Identifier Episode Type VT MEDTR[facility]IC Category Episode Date [id number] MEDTR[employer]IC Time Episode Duration 15 s MEDTRONIC Episode V-1599 MEDTRONIC Identifier Episode Type VT [facility]TR[facility]IC Category Episode Vendor VT MEDTR[employer]IC Type Category Episode Date [id number] MED[employer]IC Time Episode Duration 175 s MEDTRONIC Episode V-1598 MEDTRONIC Identifier Episode Type VT [facility]TR[facility]IC Category Episode Date [id number] [employer]IC Time Episode Duration 14 s MEDTRONIC Episode V-1597 MEDTRONIC Identifier Episode Type VT MEDTRONIC Category Episode Date [id number] MEDTR[employer]IC Time Episode Duration 14 s MEDTRONIC Episode V-1596 MEDTRONIC Identifier Episode Type VT MEDTRONIC Category Episode Date [id number] MEDTR[employer]IC Time Episode Duration 16 s MEDTRONIC Episode V-1595 MEDTRONIC Identifier Episode Type VT MEDTRONIC Category Episode Date [id number] MEDTRONIC Time Episode Duration 16 s MEDTRONIC Episode V-1592 MEDTRONIC Identifier Episode Type VT MEDTRONIC Category Episode Vendor VT MEDTRONIC Type Category Episode Date [id number] MEDTRONIC Time Episode Duration 129 s MEDTRONIC Episode V-1591 MEDTRONIC Identifier Episode Type VT MEDTRONIC Category Episode Vendor VT MEDTRONIC Type Category Episode Date [id number] MEDTRONIC Time Episode Duration 21 s MEDTRONIC Episode V-1590 MEDTRONIC Identifier Episode Type VT MEDTRONIC Category Episode Vendor VT MEDTRONIC Type Category Episode Date [id number] MED[employer]IC Time Episode Duration 66 s MEDTRONIC Episode V-1585 MEDTRONIC Identifier Episode Type VT [facility]IC Category Episode Vendor [place] [facility]IC Type Category Episode Date [id number] [facility]IC Time Episode Duration 67 s [facility]IC Anatomical Region Laterality Modality Other Specimen (Source) Anatomical Collection Method Collection Time Re ceived Time Location / / Volume Laterality 11/16/2020 12:42 AM GENERAL LITHOGRAPHIC WORKER Narrative 11/22/2020 12:22 PM GENERAL LITHOGRAPHIC WORKER [employer] Essentio (S) Remote PPM Device Check RUG INSPECTOR: 38%, Chronic AFib, taking Eliquis Mode: VVIR Presenting Rhythm: RUG INSPECTOR Heart Rate: adequate heart rates per his [...] mon ths, order placed. LM with results. KAE Keen I have [...] situ documented in this encounter Care Teams Automatic Machines Supervisor Relationship Specialty Start Date End Date Slava Hernandez, PCP - General Physician Legal Administrative Secretary 07/02/1806/02 PA-C [facility] [address] [place], [place] [address] Timothy Smith MD Assigned Heart and 07/23/20 [address] [facility] S Vascular Provider [address] [place] [address] documented as of this encounter
--- OUTSIDE RECORDS SUMMARY | 2022-07-19 08:21 | XMS_ITS | Encounter Summary ---
:1940 Author Organization [place] Address [facility] [place] [address] Care Team Providers Name Role Phone Slava [...] [address] [place] [address] (Wo rk) 08/16/2022 Office Visit Cardiology Timothy Smith MD [address] [place] [id number] (Wo rk) documented as of this encounter Visit Diagnoses Not on filedocumented in this encounter Care Teams Product Development Carpenter Relationship Specialty Start Date End Date Slava Hernandez, PCP - General Physician Supervisor Industrial Garment 07/02/1806/02 [facility] [address] [facility] [place] [address] iTmothy Smith MD Assigned Heart and 07/23/20 [address] Vascular Provider [address] [place] [address] documented as of this encounter
--- OUTSIDE RECORDS SUMMARY | 2022-07-19 08:21 | XMS_ITS | Encounter Summary ---
:1940 Author Organization [place] Address [facility] [place] [address] Care Team Providers Name Role Phone Slava [...] [address] [place] [address] (Wo rk) 08/16/2022 Office Visit Cardiology Timothy Smith MD [address] [place] [id number] (Wo rk) documented as of this encounter Visit Diagnoses Not on filedocumented in this encounter Care Teams Lens Polisher Hand Relationship Specialty Start Date End Date Slava Hernandez, PCP - General Physician Duct Cleaner 07/02/1806/02 [facility] [address] [place] [address] Timothy Smith MD Assigned Heart and 07/23/20 [address] Vascular Provider [address] [place] [address] documented as of this encounter
--- OUTSIDE RECORDS SUMMARY | 2022-07-19 08:21 | XMS_ITS | Encounter Summary ---
:1940 Author Organization [place] Address [facility] [place] [address] Care Team Providers Name Role Phone Slava Hernandez PA-C Primary Care Provider Timothy Smith MD Unavailable Reason for Visit Reason Comments Medication Refill Encounter Details Date Type Department Care Team Description 09/24/2020 Refill [facility] Urology Shea Rivera PA-C Medication Refill Clinic [place] [address] [place] [address] [place] [address] [place] [phone] Social History Tobacco Use Types Packs/Day Years Used Date Smoking Tobacco: Never Smokeless Tobacco: Never Alcohol Use Standard Drinks/Week Comments No 0 (1 standard drink = 0.6 oz pure alcoho l) Sex Assigned at Date Recorded Not on file documented as of this encounter Plan of Treatment Upcoming Encounters Date Type Specialty Care Team Description 08/16/2022 Ancillary Procedure Cardiology Timothy Smith MD [address] [place] [id number] (Wo rk) 08/16/2022 Office Visit Cardiology Timothy Smith MD [address] [place] [phone] (Wo rk) documented as of this encounter Visit Diagnoses Diagnosis Urinary frequency Weak urinary stream Slowing of urinary stream documented in this encounter Care Teams Press Smith Helper Relationship Specialty Start Date End Date Slava Hernandez, PCP - General Physician Automobile Drivers 07/02/1806/02 [facility] [address] [place] [address] Timothy Smith MD Assigned Heart and 07/23/20 [address] [facility] Provider [address] [place] [address] documented as of this encounter
--- OUTSIDE RECORDS SUMMARY | 2022-07-19 08:21 | XMS_ITS | Encounter Summary ---
:1940 Author Organization [place] Address Counts include 234 beds at the [facility] [place] [address] Care Team Providers Name Role Phone Slava [...] [address] [place] [phone] (Wo rk) 08/16/2022 Office Visit Cardiology Timothy Smith MD [address] [place] [phone] (Wo rk) documented as of this encounter Visit Diagnoses Not on filedocumented in this encounter Care Teams Travel Rn Or Relationship Specialty Start Date End Date Slava Hernandez PA-C PCP - General Physician Electrical Design Technologist 07/02/18 06/29/21 [facility] [address] [place] [address] documented as of this encounter
--- OUTSIDE RECORDS SUMMARY | 2022-07-19 08:21 | XMS_ITS | Encounter Summary ---
:1940 Author Organization [place] Address [address] [facility] [place] [address] Care Team Providers Name Role Phone Slava Hernandez PA-C Primary Care Provider Timothy Smith MD Unavailable Reason for Referral (Routine) - Closed Specialty Diagnoses / Procedures Referred By Contact Refer red To Contact Diagnoses Sustained [place] (ventricular tachycardia) Timothy Smith MD [address] [place] [address] Referral ID Status Reason Start Date Expiration Date Visits Requ ested Visits Authorized [id number] Closed 03/23/2021 03/23/2022 1 1 V Testing (Routine) - Closed Specialty Diagnoses / Procedures Referred By Contact Refer red To Contact Cardiology Diagnoses Sustained VT (ventricular tachycardia) Timothy Smith MD Cv Cardiac Svc Rscc Procedures Holter Monitor 24 hour Adult Pediatric ZZC AMB BP MONITORING W/SW >=24 HR, RECORD/SCAN/INTRP/RPT ZZHC HOLTER RECORDING 24 HRS ZZHC HOLTER SCAN 24 HRS AL HOLTER RECORDING 24 HRS AL HOLTER SCAN [address] [address] [employer] AL AMB BP MONITORING W/SW >= 24 HR, RECORD/SCAN/INTRP/RPT HC HOLTER RECORDING 24 HRS HC HOLTER SCAN 24 HRS, ANALYSIS WITH REPORT [place] [address] [address] [place] [address] Phone: Fax: Referral ID Status Reason Start Date Expiration Date Visits Requ ested Visits Authorized [id number] Closed 03/23/2021 03/23/2022 1 1 Reason for Visit Reason Comments FU Cardiac testing review echo, discuss upgrade - ekg done (Routine) - Closed Specialty Diagnoses / Procedures Referred By Contact Refer red To Contact Diagnoses Sustained [place] (ventricular tachycardia) [facility] [address] [facility] [address] [place] [address] Referral ID Status Reason Start Date Expiration Date Visits Requ ested Visits Authorized [id number] Closed 02/17/2021 02/17/2022 1 1 Encounter Details Date Type Department Care Team Description 03/23/2021 Office Visit [facility] Timothy Smith MD Sustained VT (ventricular tachycardia) ( H); [facility] [place] [address] Persistent atrial fibrillati on (H) [address] [facility] [address] [facility] [address] [place] [address] [place] [phone] Social History Tobacco Use [...] upgrade. Timothy Smith MD cc: HANK Hand[facility] [address] [place], [address] Timothy Smith MD MT: patito Name: RADHA VILLA MRN: [id number] Account: [id number] : 1940 Service Date: 03/23/2021 Document: [id number] Mary Post CMA - 03/23/2021 1:45 PM CDT A decision aid for implantable cardioverter-defibrillatiors (ICD) given to patient at office visit to review before seeing provider. Timothy Smith MD - 03/23/2021 1:45 PM CDT HPI and Plan: See dictation Orders Placed This Encounter Procedures ??? Follow-Up with Assistant Paralegal ??? EKG 12-lead complete w/read (Future)- to [...] on phone: None Gets together: None Attends temple service: None Active member of club or organization: None Attends meetings of clubs or organizations: None Relationship status: None ??? Intimate partner violence Fear of current or ex partner: None Emotionally abused: None Physically abused: None Forced sexual activity: None Other Topics Concern ??? Parent/sibling w/ CABG, HI or angioplasty before 65F 55M? No ??? [...] Oriented x 3 CC Timothy Smith MD [address] [place] [address] documented in this encounter Plan of Treatment Upcoming Encounters Date Type Specialty Care Team Description 08/16/2022 Ancillary Procedure Cardiology Timothy Smith MD [address] [place] [phone] (Wo wade) 08/16/2022 Office Visit Cardiology Timothy Smith MD [address] [place] [phone] (Wo rk) Scheduled Referrals Name Type Priority Associated Diagnoses Order S chedule Follow-Up with Referral Routine Sustained [place] Expected: Assistant Paralegal (ventricular 04/22/20 21 tachycardia) (H) (Approximat e), [...] fibrillation documented in this encounter Care Teams Metalizing Machine Operator Automatic Relationship Specialty Start Date End Date Slava Hernandez, PCP - General Physician Practice Support Specialist 07/02/1806/02 PA-C [facility] [address] [place] [address] Timothy Smith MD Assigned Heart and 07/23/20 [address] Vascular Provider [address] [place] [address] documented as of this encounter
--- OUTSIDE RECORDS SUMMARY | 2022-07-19 08:21 | XMS_ITS | Encounter Summary ---
:1940 Author Organization [place] Address [address] [place] [address] Care Team Providers Name Role Phone Slava Hernandez PA-C Primary Care Provider Timothy Smith MD Unavailable Reason for Referral CV Testing (Routine) - Closed Specialty Diagnoses / Procedures Referred By Contact Refer red To Contact Diagnoses Cardiac pacemaker in situ SSS (sick sinus syndrome) (H) Steven Canchola, Procedures Cardiac Device Check - Remote MD [address] [place] [address] Referral ID Status Reason Start Date Expiration Date Visits Requ ested Visits Authorized [id number] Closed 02/16/2021 02/16/2022 1 1 Reason for Visit CV Testing (Routine) - Closed Specialty Diagnoses / Procedures Referred By Contact Refer red To Contact Diagnoses Cardiac pacemaker in situ Chris De Leon MD Procedures Cardiac Device Check - In Clinic [address] [place] [address] Referral ID Status Reason Start Date Expiration Date Visits Requ ested Visits Authorized [id number] Closed 11/16/2020 11/16/2021 1 1 Encounter Details Date Type Department Care Team Description 02/16/2021 Ancillary Procedure [facility] Chris De Leon SSS (sick sinus syndrome) (H) (Primary Dx); Heart Clinic Cardiac pacemaker in situ [place] [address] [place] [address] [place]stein [phone] [address] (Work) [phone] Social History Tobacco Use Types Packs/Day Years [...] Procedure Cardiology Timothy Smith MD [address] [place] [id number] (Wo rk) 08/16/2022 Office Visit Cardiology Timothy Smith MD [address] [place] [id number] (Wo rk) Scheduled Orders Name Type Priority [...] Range Method Time At Signature Date Time [id number] [employer] Interrogation Session Implantable [employer]ONIC Pulse Generator Striper Implantable L121 ESSENTIO EL [employer]ONIC Pulse Generator Model Implantable [id number] [employer]IC Pulse Generator Serial Number Type Remote [facility]IC Interrogation Session Clinic Name [facility] Implantable Pacemaker MED[employer]IC Pulse Generator Type Implantable [id number] [employer]IC Pulse Generator Implant Date Implantable Lead [facility] RAUL Striper Implantable Lead Tendril MEDTRONI C Model STS Implantable Lead [id number] [employer]IC Serial Number Implantable Lead [id number] MED[employer]ONIC Implant Date Implantable Lead Bipolar Lead [employer] Polarity Type Implantable Lead UNKNOWN [employer] Location Detail 1 Implantable Lead Right Atrium [facility] Location Implantable Lead [facility] MED[facility] RAUL Striper Implantable Lead Tendril MEDTRONI C Model STS Implantable Lead [id number] [employer]IC Serial Number Implantable Lead [id number] MEDTRONIC [...] MEDTRONIC Pacing Threshold Pulse Width Battery Date [id number] [employer]IC Time of Measurements Battery Status Beginning of MEDTRONIC Service Battery 126 mo MEDTRONIC Remaining Longevity Battery 100 % [employer]IC Remaining Percentage Brandon Statistic MEDTRONIC Date Time Start Brandon [...] [place] MEDTR[employer]IC Statistic Vendor Type Category Episode [id number] [employer]TRONIC Statistic Recent Date Time Start Episode [id number] [facility] Statistic Recent Date Time End Episode [id number] [facility]IC Statistic Recent Date Time Start Episode [id number] [facility]TRONIC Statistic Recent Date Time End Episode [id number] [employer]TRONIC Statistic Recent Date Time Start Episode [id number] [facility]IC Statistic Recent Date Time End Episode [id number] MEDTRONIC Statistic Recent Date Time Start Episode [id number] MEDTRONIC Statistic Recent Date Time End Episode APM-99 [facility]IC Identifier Episode Type Periodic EGM MEDTRONIC Category Episode Date [id number] [facility]IC Time Episode [id number] MED[employer]ONIC Identifier Episode Type Other MEDTRONIC Category Episode Date [id number] MEDTRONIC Time Episode V-1629 MED[employer]ONIC Identifier Episode Type [place] [facility]IC Category Episode Date [id number] [facility]ONIC Time Episode Duration 14 s MEDTRONIC Episode V-1628 MED[facility]IC Identifier Episode Type [place] [facility] Category Episode Date [id number] [facility]IC Time Episode Duration 16 s MEDTRONIC Anatomical Region Laterality Modality Other Specimen (Source) Anatomical Collection Method Collection Time Re ceived Time Location / / Volume Laterality 05/18/2021 12:41 AM CDT Narrative 05/24/2021 4:14 PM CDT [facility] Essentio (S) Remote PPM Device Check GUNNERY/ORDNANCE OFFICER: 30% Mode: VVIR 60-130 Presenting Rhythm: GUNNERY/ORDNANCE OFFICER Heart Rate: Adequate rates per histogram Sensing: Stable Pacing Threshold: Stable Impedance: Stable Battery Status: 10.5 years Atrial Arrhythmia: n/a Ventricular Arrhythmia: 2 ventricular hi gh rates. 2 EGMs for review show irregular VS events suggestive of RVR, e pisodes lasting 27-35 seconds, rates 100-180 bpm. Care Plan: F/U latitude ppm in 3 months. Gave PT results over the phone. KEA Henriquez/ KAE Keen I have reviewed and interpreted [...] Range Method Time At Signature Date Time [id number] [employer] Interrogation Session Implantable [employer] Pulse Generator Striper Implantable L121 ESSENTIO EL [employer] Pulse Generator Model Implantable [id number] [employer]IC Pulse Generator Serial Number Type In Clinic [facility]IC Interrogation Session Clinic Name Lizandro [place] [facility]IC Implantable Pacemaker MED[employer]IC Pulse Generator Type Implantable [id number] MED[employer]IC Pulse Generator Implant Date Implantable Lead [facility] RAUL Striper Implantable Lead 8TC Tendril MEDTRONI C Model STS Implantable Lead [id number] [employer]IC Serial Number Implantable Lead [id number] MEDTRONIC Implant Date Implantable Lead Bipolar Lead [facility] Polarity Type Implantable Lead UNKNOWN [facility] Location Detail 1 Implantable Lead Right Atrium [facility] Location Implantable Lead [facility] MED[facility]O RAUL Striper Implantable Lead 8TC Tendril MEDTRONI C Model STS Implantable Lead [id number] MED[employer]IC Serial Number Implantable Lead [id number] MEDTRONIC [...] NSVT MEDTRONIC Statistic Vendor Type Category Episode [id number] MEDTRONIC Statistic Total Date Time End Episode 80 MED[employer]IC Statistic Recent Count Episode [place] MEDTR[facility]IC Statistic Type Category Episode NSVT MEDTRONIC Statistic Vendor Type Category Episode SunOct 15 [employer]IC Statistic Recent 03:43:58 LINEN ROOM WORKER 2019 Date Time Start Episode [id number] [facility] Statistic Recent Date Time End Anatomical Region Laterality Modality Other Specimen (Source) Anatomical Location Collection Method / Collectio n Time Received Time / Laterality Volume 02/16/2021 Narrative 02/21/2021 9:24 AM CDT [facility] Essentio (D) Pacemaker Device Check Patient seen in clinic for device evalua tion and iterative programming. AP: NA ?% ?? GUNNERY/ORDNANCE OFFICER: 39 % ?? Mode: VVIR 60-130 ?? [...] dysfunction documented in this encounter Care Teams Research Methodologist Relationship Specialty Start Date End Date Slava Hernandez, PCP - General Physician Sinker Winder 07/02/1806/02 PA-C [facility] [address] [place] [address] Timothy Smith MD Assigned Heart and 07/23/20 [address] Vascular Provider [address] [place] [address] documented as of this encounter
--- OUTSIDE RECORDS SUMMARY | 2022-07-19 08:21 | XMS_ITS | Encounter Summary ---
:1940 Author Organization [place] Address [address] [place] [address] Care Team Providers Name Role Phone Leeroymekhi Slava Estrella PA-C Primary Care Provider Timothy Smith MD Unavailable Reason for Visit Reason Onset Date Comments Prior Auth - Medication 11/04/2020 (ELIQUIS) 5 MG t ablet COST TIER EXPECTION - Denied Encounter Details Date Type Department Care Team Description 11/04/2020 Telephone [facility] Heart Zarina Smith MD Prior Auth - Medication Clinic [place] [address] [facility] [address] ((ELIQUIS) 5 MG tablet [address] [facility] [address] COST TIER EXPECTION - [facility] [address] [place] [address] Denied) [place] [address] Social History Tobacco Use Types [...] nurse for a prescription of Eliquis. JNelosnRN INTERVIEWER Telephone Encounter - Claire Harvey - 11/05/2020 11:59 AM CST Images from the original note were not included. PRIOR AUTHORIZATION DENIED-Tiering Exception Medication: (ELIQUIS) 5 MG tablet COST TIER EXPECTION - Denied Denial Date: 11/04/2020 Denial Rational: Appeal Information: INTERVIEWER Telephone Encounter - Monica Nguyen - 11/04/2020 4:11 PM CST Images from the original note were not included. PA Initiation Medication: (ELIQUIS) 5 MG tablet COST TIER EXPECTION - Insurance Company: [employer] - Pharmacy Filling the Rx: [facility] [address] [place] [id number] [facility] Filling Pharmacy Filling Pharmacy Start Date: 11/04/2020 INTERVIEWER Telephone Encounter - Viola Arcos - 11/04/2020 2:31 PM CST Prior Authorization Retail Medication Request Medication/Dose: apixaban ANTICOAGULANT (ELIQUIS) 5 MG tablet COST TIER EXPECTION ICD code (if different than what is on RX): Previously Tried and Failed: Rationale: Insurance Name: [employer] Insurance ID: Pharmacy Information (if different than what is on RX) Name: Phone: Patient called in stating the medication is too expensive and is over $500. He cannot afford medication. INTERVIEWER documented in this encounter Plan of Treatment Upcoming Encounters Date Type Specialty Care Team Description 08/16/2022 Ancillary Procedure Cardiology Timothy Smith MD [address] [place] [address] (Wo rk) 08/16/2022 Office Visit Cardiology Timothy Smith MD [address] [place] [address] (Wo rk) documented as of this encounter Visit Diagnoses Not on filedocumented in this encounter Care Teams Iron Pourer Relationship Specialty Start Date End Date Slava Hernandez, PCP - General Physician Medicinal Chemist 07/02/1806/02 PA-C [facility] [address] [place], [place] [id number] Timothy Smith MD Assigned Heart and 07/23/20 [address] V[address] [place] [id number] documented as of this encounter
--- OUTSIDE RECORDS SUMMARY | 2022-07-19 08:21 | XMS_ITS | Encounter Summary ---
:1940 Author Organization [place] Address [facility] [place] [address] Care Team Providers Name Role Phone Slava Hernandez PA-C Primary Care Provider Timothy Smith MD Unavailable Reason for Visit Reason Onset Date Comments Refill Request 08/25/2020 Eliquis Encounter Details Date Type Department Care Team Description 08/25/2020 Refill [facility] Heart Zarina Smith MD Refill Request (Eliquis) Clinic [place] [address] [facility] [address] [place] [address] [place] [phone] Social History Tobacco Use Types Packs/Day Years [...] Procedure Cardiology Timothy Smith MD [address] [place] [phone] (Wo rk) 08/16/2022 Office Visit Cardiology Timothy Smith MD [address] [place] [phone] (Wo rk) documented as of this encounter Visit Diagnoses Diagnosis Paroxysmal atrial fibrillation (H) Atrial fibrillation documented in this encounter Care Teams Delivery And Mail Sorter Relationship Specialty Start Date End Date Slava Hernandez, PCP - General Physician Pharmacy Specialist 07/02/1806/02 MARIBEL [facility] [address] [place] [address] Timothy Smith MD Assigned Heart and 07/23/20 [address] [facility] Vascular Provider [address] [place] [address] documented as of this encounter
--- OUTSIDE RECORDS SUMMARY | 2022-07-19 08:21 | XMS_ITS | Encounter Summary ---
:1940 Author Organization [place] Address [address] [facility] [facility] [place] [address] Care Team Providers Name Role Phone Slava Hernandez PA-C Primary Care Provider Timothy Smith MD Unavailable Reason for Visit Reason Comments Atrial Fib ekg done (Routine) - Closed Specialty Diagnoses / Procedures Referred By Contact Refer red To Contact Diagnoses Sustained [place] (ventricular tachycardia) iTmothy Smith MD [address] [place] [address] Referral ID Status Reason Start Date Expiration Date Visits Requ ested Visits Authorized [id number] Closed 03/23/2021 03/23/2022 1 1 Encounter Details Date Type Department Care Team Description 04/26/[address] [facility] Timothy Smith MD Persistent atrial fibrillation (H) (Prim arnie Dx); [facility] [place] [address] Sustained [place] (ventricular ta chycardia) (H); [address] [facility] [address] Morbid obesity (H) [facility] [address] [place] [address] [place] [phone] Social History Tobacco Use Types Packs/Day Years [...] Timothy Smith MD cc: Slava Hernandez PA-C [facility] [id number] [place] [address] Timothy Smith MD MT: francesca Name: RADHA VILLA MRN: [id number] Account: [id number] : 1940 Service Date: 04/26/2021 Document: [id number] Timothy Smith MD - 04/26/2021 12:45 PM [...] Psych: CC Timothy Smith MD [address] [place] [address] documented in this encounter Plan of Treatment Upcoming Encounters Date Type Specialty Care Team Description 08/16/2022 Ancillary Procedure Cardiology Timothy Smith MD [address] [place] [id number] (Wo rk) 08/16/2022 Office Visit Cardiology Timothy Smith MD [address] [place] [phone] (Wo rk) documented as of this encounter [...] obesity documented in this encounter Care Teams Trimmer Hand Relationship Specialty Start Date End Date Slava Hernandez, PCP - General Physician Lab Animal Technician 07/02/1806/02 PA-C [facility] [address] [place] [address] Timothy Smith MD Assigned Heart and 07/23/20 [address] V[address] [place] [phone] documented as of this encounter
--- OUTSIDE RECORDS SUMMARY | 2022-07-19 08:21 | XMS_ITS | Encounter Summary ---
:1940 Author Organization [place] Address [address] [place] [address] Care Team Providers Name Role Phone Slava Hernandez PA-C Primary Care Provider Timothy Smith MD Unavailable Reason for Visit Reason Onset Date Comments Medication Question 02/02/2021 side effects? Encounter Details Date Type Department Care Team Description 02/02/2021 Telephone [facility] [place] Medic ation Question [facility] SIENNA Butler (side eff ects?) [facility] Care [address] [place] [address] [address] [place] [address] Social History Tobacco Use Types [...] MD [address] [place] [address] (Wo rk) 08/16/2022 Office Visit Cardiology Timothy Smith MD [address] [place] [address] (Wo rk) documented as of this encounter Visit Diagnoses Not on filedocumented in this encounter Care Teams Iphone Developer Relationship Specialty Start Date End Date Slava Hernandez, PCP - General Physician Senior Director Finance 07/02/1806/02 PAKatie [facility] [address] [place] [address] Timothy Smith MD Assigned Heart and 07/23/20 [address] [place] [address] documented as of this encounter
--- OUTSIDE RECORDS SUMMARY | 2022-07-19 08:21 | XMS_ITS | Encounter Summary ---
:1940 Author Organization [place] Address [address] [place] [address] Care Team Providers Name Role Phone Salva Hernandez PA-C Primary Care Provider Ankur Smith [...] INITIAL SUBSTANCE [facility] US GUIDE FOR PERICARDIOCENTESIS [address] [place] [address] Z[facility] ECHO MYOCARD BX ZZC INJECTION, PERFLUTREN [...] HC STATISTIC IV PUSH SING[place] [address] HC ECHO COMPLETE W DOPPLER W CONTRAST HC ECHO COMPLETE W DOPPLER W/O CONTRAST [address] Referral ID Status Reason Start Date Expiration Date Visits Requ ested Visits Authorized [id number] Closed 02/17/2021 02/17/2022 1 1 Reason for [...] INITIAL SUBSTANCE ZZHC US GUIDE FOR PERICARDIOCENTESIS [address] [address] [facility] ZZHC ECHO MYOCARD BX ZZC INJECTION, PERFLUTREN [...] STATISTIC IV PUSH SINGLE [place] [address] HC ECHO COMPLETE W DOPPLER W CONTRAST HC ECHO COMPLETE W DOPPLER W/O CONTRAST [address] Referral ID Status Reason Start Date Expiration Date Visits Requ ested Visits Authorized [id number] Closed 02/17/2021 02/17/2022 1 1 Encounter Details Date Type Department Care Team Description 03/21/2021 Hospital Encounter [facility] Ankur Smith MD Sustained [place] [address] (ventr icular Heart Care [address] tachycardia) (H) [address] [facility] [place] [phone] (Primary Dx) [facility] [phone] [address] (Work) [place] [address] Social History [...] Coronary artery disease minutes as needed involving [place] coronary for chest pain artery of [place] heart without angina pectoris apixaban ANTICOAGULANT Take [...] [address] [place] [id number] (Wo rk) 08/16/2022 Office Visit Cardiology Ankur Smith MD [address] [place] [phone] (Wo rk) documented as of this encounter [...] PM CDT Narrative 03/21/2021 2:22 PM CDT [id number]^KEELEY^ANKUR [facility] Heart [facility]chocardiography Laboratory [address] [facility] [address] [place] [address] Name: RADHA FAROOQ : 1940 Study Date: 03/21/2021 12:48 PM Age: 80 yrs Gender: Male Patient Location: [facility] Reason For Study: Sustained VT (ventricu lar tachycardia) (H) Ordering Physician: ANKUR SMITH Referring Physician: ANKUR SMITH Performed By: MCKAY Saenz BSA: 2.5 m2 Height: 71 in Weight: 285 lb HR: 73 BP: 100/68 mmHg Procedure Complete Echo Adult. Vijaya ([facility] #[id number]) given intravenously. Interpretation Summary The visual ejection [...] note might be different from the original. [id number]^KEELEY^SUSANNASUSANA [facility] Heart [facility]ch[facility] Laboratory [address] [facility] [address] [place] [address] Name: RADHA FAROOQ : 1940 Study Date: 03/21/2021 12:48 PM Age: 80 yrs Gender: Male Patient Location: [facility] Reason For Study: Sustained VT (ventricu lar tachycardia) (H) Ordering Physician: ANKUR SMITH Referring Physician: ANKUR SMITH Performed By: ZEHRA Saenz BSA: 2.5 m2 Height: 71 in Weight: 285 lb HR: 73 BP: 100/68 mmHg Procedure Complete Echo Adult. Optison ([facility] #[id number]) given intravenously. Interpretation Summary The visual ejection [...] On Sun03/21/21 at 1330, For 1 dose, [facility] [id number] sodium chloride (PF) 0.9% PF flush 10 mL Given 03/21/2021 1:19 PM CDT 10 mLs 10 mL, Intravenous, ONCE, On Sun03/21/21 at 1330, For 1 dose documented in this encounter Care Teams Patient Transport Officer Relationship Specialty Start Date End Date Slava Hernandez, PCP - General Physician Color Artist 07/02/1806/02 PA-C [facility] [address] [place] [address] Ankur Smith MD Assigned Heart and 07/23/20 [address] Vascular Provider [address] [place] [address] documented as of this encounter
--- OUTSIDE RECORDS SUMMARY | 2022-07-19 08:21 | XMS_ITS | Encounter Summary ---
:1940 Author Organization [place] Address [address] [facility] [place] [address] Care Team Providers Name Role Phone Slava [...] 24 HRS ZZ[facility] HOLTER SCAN 24 HRS ME HOLTER RECORDING 24 HRS ME HOLTER SCAN 24 HRS [address] [address] [address] ME AMB BP MONITORING W/SW >= 24 HR, RECORD/SCAN/INTRP/RPT HC HOLTER RECORDING 24 HRS HC HOLTER SCAN 24 HRS, ANALYSIS WITH REPORT [place] [address] [address] [place] [address] Phone: Fax: Referral ID Status Reason Start Date Expiration Date Visits Requ ested Visits Authorized [id number] Closed 03/23/2021 03/23/2022 1 1 Reason for Visit CV Testing (Routine) - Closed Specialty Diagnoses / Procedures Referred By Contact Refer red To Contact Cardiology Diagnoses Sustained VT (ventricular tachycardia) Timothy Smith MD Rh Cv Cardiac Svc Rscc Procedures Holter Monitor 24 hour Adult Pediatric ZZC AMB BP MONITORING W/SW >=24 HR, RECORD/SCAN/INTRP/RPT ZZ[facility] HOLTER RECORDING 24 HRS ZZHC HOLTER SCAN 24 HRS ME HOLTER RECORDING 24 HRS ME HOLTER SCAN [address] [address] [address] ME AMB BP MONITORING W/SW >= 24 HR, RECORD/SCAN/INTRP/RPT HC HOLTER RECORDING 24 HRS HC HOLTER SCAN 24 HRS, ANALYSIS WITH REPORT [place] [address] [address] [place] [address] Phone: Fax: Referral ID Status Reason Start Date Expiration Date Visits Requ ested Visits Authorized [id number] Closed 03/23/2021 03/23/2022 1 1 Encounter Details Date Type Department Care Team Description 03/30/2021 Hospital Encounter [facility] Timothy Smith MD Sustained [place] [facility] [address] (ventricu lar Heart Care [address] tachycardia) (H) [address] [address] [place] [address] [address] [place], [place] (Work) [address] Social History Tobacco Use [...] Coronary artery disease minutes as needed involving [place] coronary for chest pain artery of [place] heart without angina pectoris apixaban ANTICOAGULANT Take [...] Procedure Cardiology Timothy Smith MD [address] [place] [address] (Wo rk) 08/16/2022 Office Visit Cardiology Timothy Smith MD [address] [place] [address] (Wo rk) documented as of this encounter [...] tachycardia documented in this encounter Care Teams Bellman Driver Relationship Specialty Start Date End Date Slava Hernandez, PCP - General Physician Drawing Hand 07/02/1806/02 PA-C [facility] [address] [place] [address] Timothy Smith MD Assigned Heart and 07/23/20 [address] Vascular Provider [address] [place] [address] documented as of this encounter
--- OUTSIDE RECORDS SUMMARY | 2022-07-19 08:21 | XMS_ITS | Encounter Summary ---
:1940 Author Organization [place] Address [facility] [place] [address] Care Team Providers Name Role Phone Slava [...] [address] [place] [address] (Wo rk) 08/16/2022 Office Visit Cardiology Timothy Smith MD [address] [place] [id number] (Wo rk) documented as of this encounter Visit Diagnoses Not on filedocumented in this encounter Care Teams Primer Charging Tool Setter Relationship Specialty Start Date End Date Slava Hernandez, PCP - General Physician Refuge Worker 07/02/1806/02 HANK-C [facility] [address] [facility] [address] Timothy Smith MD Assigned Heart and 07/23/20 [address] Vascular Provider [address] [place] [address] documented as of this encounter
--- OUTSIDE RECORDS SUMMARY | 2022-07-19 08:21 | XMS_ITS | Encounter Summary ---
:1940 Author Organization [place] Address [address] [facility] [place] [address] Care Team Providers Name Role Phone Slava Hernandez PA-C Primary Care Provider Reason for Referral (Routine) - Closed Specialty Diagnoses / Procedures Referred By Contact Refer red To Contact Diagnoses Persistent atrial fibrillation (H) Ankur Smith MD [address] [place] [address] Referral ID Status Reason Start Date Expiration Date Visits Requ ested Visits Authorized [id number] Closed 07/07/2020 07/07/2021 1 1 (Routine) - Closed Specialty Diagnoses / Procedures Referred By Contact Refer red To Contact Diagnoses Persistent atrial fibrillation (H) Ankur Smith MD [address] [place] [address] Referral ID Status Reason Start Date Expiration Date Visits Requ ested Visits Authorized [id number] Closed 07/07/2020 07/07/2021 1 1 Reason for Visit Reason Comments Atrial Fib (Routine) - Closed Specialty Diagnoses / Procedures Referred By Contact Refer red To Contact Diagnoses Persistent atrial fibrillation (H) Ankur Smith MD [address] [place] [address] Referral ID Status Reason Start Date Expiration Date Visits Requ ested Visits Authorized [id number] Closed 06/25/2019 06/24/2020 1 1 Encounter Details Date Type Department Care Team Description 07/07/2020 Office Visit [facility] Ankur Smith MD Persistent atrial [facility] [address] (H) [facility] [address] [address] [place], [place] [address] [address] [place], [place] (Work) [address] Social History Tobacco Use [...] scheduled for 1 year. cc: HANK Handley [facility] [address] [place], [place] [id number] ANKUR SMITH MD MT: CAITLYN Name: RADHA VILLA MRN: [id number] Account: [id number] : 1940 Service Date: 07/07/2020 Document: [id number] Ankur Smith - 07/07/2020 10:45 AM CDT HPI and Plan: See dictation Orders Placed This Encounter Procedures ??? Follow-Up with Jump Roll Operator ??? Follow-Up with Cardiac Advanced Practice [...] on phone: None Gets together: None Attends moravian service: None Active member of club or organization: None Attends meetings of clubs or organizations: None Relationship status: None ??? Intimate partner violence Fear of current or ex partner: None Emotionally abused: None Physically abused: None Forced sexual activity: None Other Topics Concern ??? Parent/sibling w/ CABG, TN or angioplasty before 65F 55M? No ??? [...] MD [address] [place] [id number] documented in this encounter Plan of Treatment Upcoming Encounters Date Type Specialty Care Team Description 08/16/2022 Ancillary Procedure Cardiology Ankur Smith MD [address] [place] [id number] (Fiorella olvera) 08/16/2022 Office Visit Cardiology Ankur Smith MD [address] [place] [id number] (Wo rk) Scheduled Referrals Name Type Priority Associated Diagnoses Order S chedule Follow-Up with Referral Routine Persistent atrial Expected : Jump Roll Operator fibrillation 03/29/20 (Approximate), Expires: 07/27/2022 Follow-Up with Cardiac Referral Routine Persistent atrial Expected: Advanced Practice Provider fibrillation 1 (Approximate), Expires: 11/19/2021 documented as of this encounter Visit Diagnoses Diagnosis Persistent atrial fibrillation (H) Atrial fibrillation documented in this encounter Care Teams Rack Carrier Relationship Specialty Start Date End Date Slava Hernandez PA-C PCP - General Physician Access Specialist 07/02/18 06/29/[address] [address] documented as of this encounter
--- OUTSIDE RECORDS SUMMARY | 2022-07-19 08:21 | XMS_ITS | Encounter Summary ---
:1940 Author Organization [place] Address [address] [facility] [place] [address] Care Team Providers Name Role Phone Slava Hernandez PA-C Primary Care Provider Timothy Smith MD Unavailable Reason for Visit Reason Onset Date Comments Refill Request 11/10/2020 Eliquis Encounter Details Date Type Department Care Team Description 11/10/2020 Refill M [facility] Sintia Muhammad Refi ll Request (Eliquis) [facility] Heart RN Care [address] [place] [phone] Social History Tobacco Use Types Packs/Day [...] like a prescription sent in to the [facility] mail order pharmacy. Spoke with Dr. Smith who stated that he would recommend patient resume the Eliquis 5mg BID. Prescription for Eliquis 5mg BID sent into [facility] mail order pharmacy per patient request. Pt called and updated and verbalized understanding and agreement with plan. SIENNA Hatch ETING INTELLIGENCE ANALYST documented in this encounter Plan of Treatment Upcoming Encounters Date Type Specialty Care Team Description 08/16/2022 Ancillary Procedure Cardiology Timothy Smith MD [address] [place] [address] (Wo rk) 08/16/2022 Office Visit Cardiology Timothy Smith MD [address] [place] [address] (Wo rk) documented as of this encounter Visit Diagnoses Diagnosis Atrial flutter (H) - Primary Atrial flutter A-fib (H) Atrial fibrillation documented in this encounter Care Teams Port Crane Operator Relationship Specialty Start Date End Date Slava Hernandez, PCP - General Physician Body Maker Machine Setter 07/02/1806/02 PA-C [facility] [address] [place] [address] Timothy Smith MD Assigned Heart and 07/23/20 [address] Vascular Provider [address] [place] [address] documented as of this encounter
--- OUTSIDE RECORDS SUMMARY | 2022-07-19 08:21 | XMS_ITS | Encounter Summary ---
:1940 Author Organization [place] Address [address] [facility] [place] [address] Care Team Providers Name Role Phone Slava Hernandez PA-C Primary Care Provider Timothy Smith MD Unavailable Reason for Visit CV Testing (Routine) - Closed Specialty Diagnoses / Procedures Referred By Contact Refer red To Contact Diagnoses Cardiac pacemaker in situ Timothy Smith MD Procedures Cardiac Device Check - Remote [address] [place] [address] Referral ID Status Reason Start Date Expiration Date Visits Requ ested Visits Authorized [id number] Closed 05/04/2020 05/04/2021 1 1 Encounter Details Date Type Department Care Team Description 08/03/2020 Ancillary Procedure [facility] Timothy Smith MD Cardiac pacemaker in [facility] [address] situ Heart Care S [address] [facility] [place] [address] [facility] [address] [place] [address] (Work) [phone] Social History Tobacco Use Types Packs/Day Years [...] [address] [place] [address] (Wo rk) 08/16/2022 Office Visit Cardiology Timothy Smith MD [address] [place] [address] (Wo rk) documented as of this encounter Procedures Procedure Name Priority Date/Time Associated Comments Diagnosis INTERROGATION DEVICE Routine 08/03/2020 8:56 AM Cardiac pacema ker Results for this EVAL REMOTE PACER UP MECHANICAL PRODUCT ENGINEER in situ procedu re are in TO 90 DAYS the results section. documented in this encounter Results INTERROGATION DEVICE EVAL REMOTE PACER UP TO 90 DAYS (08/03/2020 8:56 AM MECHANICAL PRODUCT ENGINEER) Component Value Ref Test Analysis Performed Pathologis t Range Method Time At Signature Date Time [id number] [employer] Interrogation Session Implantable [place] [employer] Pulse Generator Novelties Sales Representative Implantable L[address] [place] [employer] Pulse Generator Model Implantable [id number] [employer] Pulse Generator Serial Number Type Remote [employer] Interrogation Session Clinic Name [facility] [employer] Implantable Pacemaker [employer] Pulse Generator Type Implantable [id number] [employer] Pulse Generator Implant Date Implantable Lead [facility] RAUL Novelties Sales Representative Implantable Lead 2087TC Tendril MEDTRONI C Model STS Implantable Lead [id number] [employer] Serial Number Implantable Lead [id number] [employer] Implant Date Implantable Lead Bipolar Lead [employer] Polarity Type Implantable Lead UNKNOWN [employer] Location Detail 1 Implantable Lead Right Atrium [employer] Location Implantable Lead [facility] [employer] RAUL Novelties Sales Representative Implantable Lead 2087TC Tendril MEDTRONI C Model STS Implantable Lead [id number] [employer] Serial Number Implantable Lead [id number] [employer] Implant Date Implantable Lead Bipolar Lead [...] 100 % [employer] Remaining Percentage Brandon Statistic [id number] [employer]IC Date Time Start Brandon Statistic [id number] [employer] Date Time End Brandon Statistic 0 [...] [place] [employer] Statistic Vendor Type Category Episode [id number] [employer] Statistic Recent Date Time Start Episode [id number] [employer] Statistic Recent Date Time End Episode [id number] [employer] Statistic Recent Date Time Start Episode [id number] [employer] Statistic Recent Date Time End Episode [id number] [employer] Statistic Recent Date Time Start Episode [id number] [employer] Statistic Recent Date Time End Episode [id number] MEDTRONIC Statistic Recent Date Time Start Episode [id number] MEDTRONIC Statistic Recent Date Time End Episode APM-96 MEDTRONIC Identifier Episode Type Periodic EGM MEDTRONIC Category Episode Date [id number] [employer]IC Time Episode [id number] [employer] Identifier Episode Type Other [employer]TRONIC Category Episode Date [id number] [employer] Time Episode V-1560 [employer] Identifier Episode Type [place] [employer] Category Episode Date [id number] [employer] Time Episode Duration 13 s MEDTRONIC Episode V-1559 [employer]IC Identifier Episode Type VT [employer]IC Category Episode Date [id number] [employer] Time Episode Duration 19 s MEDTRONIC Episode V-1558 [employer]IC Identifier Episode Type [place] [employer]IC Category Episode Date [id number] [employer] Time Episode Duration 11 s MEDTRONIC Episode V-1557 [employer]IC Identifier Episode Type VT [employer]IC Category Episode Date [id number] [employer]IC Time Episode Duration 11 s MEDTRONIC Episode V-1556 MED[employer]IC Identifier Episode Type VT [employer]TR[employer]IC Category Episode Date [id number] [employer] Time Episode Duration 29 s MEDTR[employer]IC Episode V-1555 [employer]IC Identifier Episode Type [place] [employer]IC Category Episode Date [id number] [employer] Time Episode Duration 13 s [employer] Anatomical Region Laterality Modality Other Specimen (Source) Anatomical Collection Method Collection Time Re ceived Time Location / / Volume Laterality 08/03/2020 12:41 AM MECHANICAL PRODUCT ENGINEER Narrative 08/04/2020 1:54 PM MECHANICAL PRODUCT ENGINEER [email or web address] [place] (S) Remote PPM Device Check INSTRUMENT INSTALLER: 35%, Chronic AFib, taking Eliquis Mode: VVIR Presenting Rhythm: INSTRUMENT INSTALLER Heart Rate: adequate heart rates per [...] situ documented in this encounter Care Teams Head Of Partner Development Relationship Specialty Start Date End Date Slava Hernandez, PCP - General Physician Millwork Estimator 07/02/1806/02 PA-C [place] [id number] Timothy Smith MD Assigned Heart and 07/23/20 [address] Vascular Provider [address] [place] [id number] documented as of this encounter
--- OUTSIDE RECORDS SUMMARY | 2022-07-19 08:21 | XMS_ITS | Encounter Summary ---
:1940 Author Organization [place] Address [address] [facility] [place] [address] Care Team Providers Name Role Phone Slava Hernandez PA-C Primary Care Provider Timothy Smith MD Unavailable Reason for Visit Reason Onset Date Comments Refill Request 08/30/2020 [facility] to mail order !! Encounter Details Date Type Department Care Team Description 08/30/2020 Refill [facility] Heart Zarina Smith MD Refill Request ([facility] [place] [address] to mail order!!) [address] [place] [address] [place] [address] [phone] Social History Tobacco Use Types Packs/Day Years [...] [address] [place] [address] (Wo rk) 08/16/2022 Office Visit Cardiology Timothy Smith MD [address] [place] [address] (Wo rk) documented as of this encounter Visit Diagnoses Diagnosis Paroxysmal atrial fibrillation (H) Atrial fibrillation documented in this encounter Care Teams Coreroom Foundry Laborer Relationship Specialty Start Date End Date Slava Hernandez, PCP - General Physician Fiberglass Finisher 07/02/1806/02 [facility] [address] [place] [address] Timothy Smith MD Assigned Heart and 07/23/20 [address] [facility] Vascular Provider [address] [place] [address] documented as of this encounter
--- OUTSIDE RECORDS SUMMARY | 2022-07-19 08:21 | XMS_ITS | Encounter Summary ---
:1940 Author Organization [place] Address [address] [facility] [place] [address] Care Team Providers Name Role Phone Slava Hernandez PA-C Primary Care Provider Timothy Smith MD Unavailable Encounter Details Date Type Department Care Team Description 11/08/2020 Telephone [facility] Sergo Tamayo RN [place] [address] [place] [address] [address] [place] [address] Social History Tobacco Use Types [...] discuss further. Awaiting return call. SIENNA Okeefe R PRESS SUPERVISOR Telephone Encounter - Temitope Tamayo RN - 11/08/2020 11:17 AM CST ----- Message from Catherine Aranda LPN sent at 11/08/2020 10:32 AM POWER PRESS SUPERVISOR ----- Pt left a VM message on my phone that eliquis is too expensive, over 500$, he Rosanna will not be taking that, what else can I try-will forward to AF team His pn# [phone] [place] mailing section clerk R PRESS SUPERVISOR documented in this encounter Plan of Treatment Upcoming Encounters Date Type Specialty Care Team Description 08/16/2022 Ancillary Procedure Cardiology Timothy Smith MD [address] [place] [address] (Wo rk) 08/16/2022 Office Visit Cardiology Timothy Smith MD [address] [place] [id number] (Wo rk) documented as of this encounter Visit Diagnoses Not on filedocumented in this encounter Care Teams Fiscal Services Manager Relationship Specialty Start Date End Date Slava Hernandez, PCP - General Physician Automotive Technician Instructor 07/02/1806/02 PA-C [facility] [address] [place] [address] Timothy Smith MD Assigned Heart and 07/23/20 [address] Vascular Provider [address] [place] [address] documented as of this encounter
--- OUTSIDE RECORDS SUMMARY | 2022-07-19 08:22 | XMS_ITS | Encounter Summary ---
:1940 Author Organization [place] Address [facility] [place] [address] Care Team Providers Name Role Phone Slava [...] MD [address] [place] [address] (Wo rk) 08/16/2022 Office Visit Cardiology Timothy Smith MD [address] [place] [address] (Wo rk) documented as of this encounter Visit Diagnoses Not on filedocumented in this encounter Care Teams Fishing Tool Operator Relationship Specialty Start Date End Date Slava Hernandez PA-C PCP - General Physician Gaming Associate 07/02/18 06/29/21 [facility] [address] [place] [address] documented as of this encounter
--- OUTSIDE RECORDS SUMMARY | 2022-07-19 08:22 | XMS_ITS | Encounter Summary ---
:1940 Author Organization [place] Address [address] [facility] [place] [address] Care Team Providers Name Role Phone Slava Hernandez PA-C Primary Care Provider Encounter Details Date Type Department Care Team Description 01/22/2019 [facility] Heart [facility] [place] fibrillation (H) [address] [facility] [address] [place], [place] [phone] Social History Tobacco Use Types Packs/Day [...] MD [address] [place] [id number] (Wo rk) 08/16/2022 Office Visit Cardiology Timothy Smith MD [address] [place] [phone] (Wo rk) documented as of this encounter Procedures Procedure Name Priority Date/Time Associated Diagnosis Comme nts BASIC METABOLIC STAT 01/22/2019 9:14 AM Persistent atrial R esults for this PANEL CDT fibrillation (H) procedure a re in the results section. documented in this encounter Results (ABNORMAL) Basic metabolic panel (01/22/2019 9:14 AM CDT) Analysis Performed At Patho logist Time Signature Sodium 140 133 - 144 01/22/2019 [place] mmol/L 10:08 AM [facility] Potassium 4.1 3.4 - 5.3 01/22/2019 [place] mmol/L 10:08 AM [facility] Chloride 105 94 - 109 01/22/2019 [place] mmol/L 10:08 AM [facility] Carbon Dioxide 31 20 - 32 01/22/2019 [place] mmol/L 10:17 AM [facility] Anion Gap 4 3 - 14 01/22/2019 [place] mmol/L 10:17 AM [facility] Glucose 102 (H) 70 - 99 01/22/2019 [place] mg/dL 10:17 AM [facility] Urea Nitrogen 37 (H) 7 - 30 01/22/2019 [place] mg/dL 10:17 AM [facility] Creatinine 1.63 (H) 0.66 - 01/22/2019 [place] 1.25 mg/dL 10:17 AM [facility] GFR Estimate 39 (L) >60 01/22/2019 [place] mL/min/{1. 10:17 AM [facility] 73_m2} HOSPITAL Comment: Non GFR Calc Starting 09/17/2018, serum creatinine ba sed estimated GFR (eGFR) will be calculated using the Chronic Kidney Dise [facility] Epidemiology Collaboration (CKD-EPI) equation. GFR Estimate If 45 (L) >60 mL/min/{1.73_m2} 01/22/2019 10:17 AM [facility] Comment: GFR Calc Starting 09/17/2018, serum creatinine ba sed estimated GFR (eGFR) will be calculated using the Chronic Kidney Dise [facility] Epidemiology Collaboration (CKD-EPI) equation. Calcium 9.7 8.5 - 10.1 mg/dL 01/22/2019 10:17 AM [facility] Specimen Anatomical Collection Method Collection Time Receive d Time (Source) Location / / Volume Laterality Blood specimen 01/22/2019 9:14 AM 019 9:17 (specimen) CDT AM CDT Timothy Smith MD LAB - BLOOD ORDERABLES Performing Organization Address City/State/ZIP Code Phon e Number [facility] [address] [place], [place] [address] [facility] [address] [phone] documented in this encounter Visit Diagnoses Diagnosis Persistent atrial fibrillation (H) Atrial fibrillation documented in this encounter Care Teams Size Cutter Relationship Specialty Start Date End Date Slava Hernandez PA-C PCP - General Physician Ladies' Hat Trimmer 07/02/18 06/29/[address] [facility] [address] [place] [address] documented as of this encounter
--- OUTSIDE RECORDS SUMMARY | 2022-07-19 08:22 | XMS_ITS | Encounter Summary ---
:1940 Author Organization [place] Address [facility] [place] [address] Care Team Providers Name Role Phone Slava Hernandez PA-C Primary Care Provider Reason for Visit Reason Onset Date Comments Medication Request 10/31/2019 Encounter Details Date Type Department Care Team Description 10/31/2019 [facility] Urology Shea Rivera , Medication Request Clinic [place] [address] [place] [address] [place] [address] (Wo rk) Social History Tobacco Use Types Packs/Day Years Used Date Smoking Tobacco: Never Smokeless Tobacco: Never Alcohol Use Standard Drinks/Week Comments No 0 (1 standard drink = 0.6 oz pure alcoho l) Sex Assigned at Date Recorded Not on file documented as of this encounter Miscellaneous Notes Telephone Encounter - Heriberto Grossman - 10/31/2019 8:47 AM CST [facility] Call Center Phone Message May a detailed message be left on voicemail: yes Reason for Call: Medication Refill Request Has the patient contacted the pharmacy for the refill? Yes Name of medication being requested: tamsulosin (FLOMAX) 0.4 MG capsule Provider who prescribed the medication: Beverly Davis, RN Pharm[facility]: [facility] [place] [facility] [address] AT PORTAL TO REGISTERED CAREPUYALLUP SITES Date medication is needed: 2/3 Action Taken: Message routed to: [facility] ([facility]): urology TER AUTOMOBILE BRAKES documented in this encounter Plan of Treatment Upcoming Encounters Date Type Specialty Care Team Description 08/16/2022 Ancillary Procedure Cardiology Timothy Smith MD [address] [place] [address] (Wo rk) 08/16/2022 Office Visit Cardiology Timothy Smith MD [address] [place] [address] (Wo rk) documented as of this encounter Visit Diagnoses Diagnosis BPH (benign prostatic hyperplasia) - Ria jing Unspecified hyperplasia of prostate with out urinary obstruction and other lower urinary tract symptoms (LUTS) documented in this encounter Care Teams Health Services Director Relationship Specialty Start Date End Date Slava Hernandez PA-C PCP - General Physician Marriage And Family Therapist 07/02/18 06/29/21 [facility] [address] [place] [address] documented as of this encounter
--- OUTSIDE RECORDS SUMMARY | 2022-07-19 08:22 | XMS_ITS | Encounter Summary ---
:1940 Author Organization [place] Address [address] [place] [address] Care Team Providers Name Role Phone Slava Hernandez PA-C Primary Care Provider Reason for Referral CV Testing (Routine) - Closed Specialty Diagnoses / Procedures Referred By Contact Refer red To Contact Diagnoses Cardiac pacemaker in situ [facility] Cv Cardiac Services Procedures Cardiac Device Check - Remote [address] [facility] [address] [place] [phone] Referral ID Status Reason Start Date Expiration Date Visits Requ ested Visits Authorized [id number] Closed 01/23/2019 01/23/2020 1 1 Encounter Details Date Type Department Care Team Description 01/23/2019 Orders Only [facility] Kitty Myers, Cardi ac pacemaker in [facility] RN situ (Ria ch Dx) Heart Care [address] [facility] [address] [place] [address] [...] 08/16/2022 Ancillary Procedure Cardiology Timothy Smith MD [address] [facility] [address] [place] [address] (Wo rk) 08/16/2022 Office Visit Cardiology Timothy Smith MD [address] [place], [place] [address] (Wo rk) documented as of this encounter Results INTERROGATION DEVICE EVAL REMOTE PACER UP TO 90 DAYS (06/25/2019 8:54 AM CDT) Component Value Ref Test Analysis Performed Pathologis t Range Method Time At Signature Date Time [id number] [employer]TRON[employer] Interrogation Session Implantable [employer] MEDTRONIC Pulse Generator Jewelry Repairer Implantable L121 ESSENTIO EL MEDTRONIC Pulse Generator Model Implantable [id number] MEDTRONIC Pulse Generator Serial Number Type Remote MEDTRONIC Interrogation Session Clinic Name [facility] Implantable Pacemaker MEDTRONIC Pulse Generator Type Implantable [id number] MEDTRONIC Pulse Generator Implant Date Implantable Lead [facility] MEDTRO RAUL Jewelry Repairer Implantable Lead [id number] Tendril MEDTRONI C Model STS Implantable Lead [id number] [employer]ONIC Serial Number Implantable Lead [id number] MEDTRONIC Implant Date Implantable Lead Bipolar Lead [employer]ONIC Polarity Type Implantable Lead UNKNOWN [employer]TRONIC Location Detail 1 Implantable Lead Right Atrium MEDTRONIC Location Implantable Lead [facility] [facility] MEDTRO RAUL Jewelry Repairer Implantable Lead 2088TC Tendril MEDTRONI C Model STS Implantable Lead [id number] [employer]IC Serial Number Implantable Lead [id number] MEDTRONIC Implant Date Implantable Lead Bipolar Lead [...] MEDTRONIC Pacing Threshold Pulse Width Battery Date [id number] [employer]TRONIC Time of Measurements Battery Status Beginning of MEDTRONIC Service Battery 108 mo MEDTRONIC Remaining Longevity Battery 100 % MEDTRONIC Remaining Percentage Brandon Statistic [id number] MEDTRONIC Date Time Start Brandon Statistic [id number] MEDTRONIC Date Time End Brandon Statistic 0 % MEDTRONIC RA Percent Paced Brandon Statistic 62 % MEDTRONIC RV Percent Paced Atrial Tachy MEDTRONIC Statistic Date Time Start Atrial Tachy [id number] MEDTRONIC Statistic Date Time End Atrial Tachy 100 % MEDTRONIC Statistic AT/AF [place] Percent Episode 5 MEDTRONIC Statistic Recent Count [...] [place] MEDTRONIC Statistic Vendor Type Category Episode [id number] MEDTRONIC Statistic Recent Date Time Start Episode [id number] MEDTRONIC Statistic Recent Date Time End Episode [id number] MEDTRONIC Statistic Recent Date Time Start Episode [id number] MEDTRONIC Statistic Recent Date Time End Episode [id number] MEDTRONIC Statistic Recent Date Time Start Episode [id number] MEDTRONIC Statistic Recent Date Time End Episode [id number] MEDTRONIC Statistic Recent Date Time Start Episode [id number] MEDTRONIC Statistic Recent Date Time End Episode APM-92 MEDTRONIC Identifier Episode Type Periodic EGM MEDTRONIC Category Episode Date [id number] MEDTRONIC Time Episode RVAT-2151 MEDTRONIC Identifier Episode Type Other MEDTRONIC Category Episode Date [id number] MEDTRONIC Time Episode ATR-6510 MEDTRONIC Identifier Episode Type AT/AF MEDTRONIC Category Episode Date [id number] MEDTRONIC Time Episode V-1530 MEDTRONIC Identifier Episode Type [place] MEDTRONIC Category Episode Date [id number] MEDTRONIC Time Episode Duration 15 s MEDTRONIC Episode V-1529 MEDTRONIC Identifier Episode Type [place] MEDTRONIC Category Episode Date [id number] MEDTRONIC Time Episode Duration 14 s MEDTRONIC Episode V-1528 MEDTRONIC Identifier Episode Type [place] MEDTRONIC Category Episode Date [id number] MEDTRONIC Time Episode Duration 15 s MEDTRONIC Episode V-1527 MEDTRONIC Identifier Episode Type VT MEDTRONIC Category Episode Date [id number] MEDTRONIC Time Episode Duration 14 s MEDTRONIC Episode V-1526 MEDTRONIC Identifier Episode Type VT MEDTRONIC Category Episode Date [id number] MEDTRONIC Time Episode Duration 14 s MEDTRONIC Episode V-1525 MEDTRONIC Identifier Episode Type VT MEDTRONIC Category Episode Date [id number] MEDTRONIC Time Episode Duration 15 s MEDTRONIC Episode V-1524 MEDTRONIC Identifier Episode Type VT MEDTRONIC Category Episode Date [id number] MEDTRONIC Time Episode Duration 40 s MEDTRONIC Episode V-1523 MEDTRONIC Identifier Episode Type [place] MEDTRONIC Category Episode Date [id number] MEDTRONIC Time Episode Duration 16 s MEDTRONIC Episode V-1522 MEDTRONIC Identifier Episode Type VT MEDTRONIC Category Episode Date [id number] MEDTRONIC Time Episode Duration 15 s MEDTRONIC Episode V-1521 MEDTRONIC Identifier Episode Type [place] MEDTRONIC Category Episode Date [id number] MEDTRONIC Time Episode Duration 14 s MEDTRONIC Episode ATR-6509 MEDTRONIC Identifier Episode Type AT/AF MEDTRONIC Category Episode Date [id number] MEDTRONIC Time Episode Duration 1,020,750 s MEDTRONIC Episode ATR-6508 MEDTRONIC Identifier Episode Type AT/AF MEDTRONIC Category Episode Date [id number] MEDTRONIC Time Episode Duration 2,246,835 s MEDTRONIC Episode ATR-6507 MEDTRONIC Identifier Episode Type AT/AF MEDTRONIC Category Episode Date [id number] MEDTRONIC Time Episode Duration 30 s MEDTRONIC Anatomical Region Laterality Modality Other Specimen (Source) Anatomical Collection Method Collection Time Re ceived Time Location / / Volume Laterality 06/25/2019 5:40 AM CDT Narrative 07/01/2019 8:21 AM CDT [employer] L121 Essentio EL (D) Remote PPM Device CheckAP: 0%LOG SORTING SUPERVISOR: 62%Mode: DDDRPresenting Rhythm: Afib wit h LOG SORTING SUPERVISOR & VSHeart Rate: adequate heart rates per [...] situ documented in this encounter Care Teams Thermit Welding Machine Operator Relationship Specialty Start Date End Date Slava Hernandez PA-C PCP - General Physician Hand Sewer 07/02/18 06/29/21 [place] [id number] documented as of this encounter
--- OUTSIDE RECORDS SUMMARY | 2022-07-19 08:22 | XMS_ITS | Encounter Summary ---
:1940 Author Organization [place] Address [address] [facility] [place] [address] Care Team Providers Name Role Phone Mary Slava Estrella PA-C Primary Care Provider Encounter Details Date Type Department Care Team Description 10/15/2019 Telephone [facility] Zina Myers, RN [address] [place] [phone] Social History Tobacco Use Types [...] PM CST Thank you for the update. CHANGER Telephone Encounter - Kitty Myers RN - [...] Will route to Dr. Smith per protocol. CHANGER documented in this encounter Plan of Treatment Upcoming Encounters Date Type Specialty Care Team Description 08/16/2022 Ancillary Procedure Cardiology Timothy Smith MD [address] [place] [address] (Wo rk) 08/16/2022 Office Visit Cardiology Timothy Smith MD [address] [place] [address] (Wo rk) documented as of this encounter Visit Diagnoses Not on filedocumented in this encounter Care Teams Spark Plug Assembler Relationship Specialty Start Date End Date Slava Hernandez PA-C PCP - General Physician Office Nurse Practitioner 07/02/18 06/29/21 [facility] [address] [place] [address] documented as of this encounter
--- OUTSIDE RECORDS SUMMARY | 2022-07-19 08:22 | XMS_ITS | Encounter Summary ---
:1940 Author Organization [place] Address [address] [place] [address] Care Team Providers Name Role Phone Slava Hernandez PA-C Primary Care Provider Reason for Referral (Routine) - Closed Specialty Diagnoses / Procedures Referred By Contact Refer red To Contact Diagnoses Persistent atrial fibrillation (H) Ankur Smith MD [address] [place] [address] Referral ID Status Reason Start Date Expiration Date Visits Requ ested Visits Authorized [id number] Closed 06/25/2019 06/24/2020 1 1 (Routine) - Closed Specialty Diagnoses / Procedures Referred By Contact Refer red To Contact Diagnoses Persistent atrial fibrillation (H) Ankur Smith MD [address] [employer] [address] [place] [address] Referral ID Status Reason Start Date Expiration Date Visits Requ ested Visits Authorized [id number] Closed 06/25/2019 06/24/2020 1 1 Reason for Visit Reason Comments Consult AF, cardiomyopathy, PPM, CA D (Routine) - Closed Specialty Diagnoses / Procedures Referred By Contact Refer red To Contact Diagnoses Persistent atrial fibrillation (H) Chronic systolic congestive heart failure (H) Elda Johnson, FLACO ROLLE [address] [place] [address] Referral ID Status Reason Start Date Expiration Date Visits Requ ested Visits Authorized [id number] Closed 01/22/2019 01/22/2020 1 1 Encounter Details Date Type Department Care Team Description 06/25/2019 Office Visit [facility], Elda Lindsay, FRONT DESK ASSOCIATE FUSING MACHINE OPERATOR [address] [place] [address] Persistent atrial fibrillation (H); [facility] Ankur Smith MD [address] [place] [id number] Chronic systolic congestive heart failur e (H) [facility] [address] [place] [address] [address] [place] [phone] Social History Tobacco Use Types Packs/Day Years [...] encouraged to lose weight. cc: HANK Handley [facility] [place] [address] [place] [address] ANKUR SMITH MD MT: CAITLYN Name: RADHA VILLA Account: [id number] : 1940 Service Date: 06/25/2019 Document: [id number] Ankur Smith MD - 06/25/2019 10:15 AM CDT HPI and Plan: See dictation Orders Placed This Encounter Procedures ??? Follow-Up with Cardiac Advanced Practice Provider ??? Follow-Up with Splitting Machine Feeder ??? EKG 12-lead complete w/read (Future)- to [...] on phone: None Gets together: None Attends episcopalian service: None Active member of club or [...] Psych: Alert and Oriented x 3 CC lSava Hernandez PA-C [facility] [address] [place] [address] documented in this encounter Plan of Treatment Upcoming Encounters Date Type Specialty Care Team Description 08/16/2022 Ancillary Procedure Cardiology Ankur Smith MD [address] [place] [phone] (Fiorella olvera) 08/16/2022 Office Visit Cardiology Ankur Smith MD [address] [place] [phone] (Fiorella olvera) Scheduled Referrals Name Type Priority Associated Diagnoses Order S chedule Follow-Up with Cardiac Referral Routine Persistent atrial Expected: Advanced Practice Provider fibrillation ( H) 12/24/2019 (Approximate), Expires: 06/24/2020 Follow-Up with Referral Routine Persistent atrial Expected : Splitting Machine Feeder fibrillation (H) 06/02 (Approximate), Expires: 11/06/2020 documented [...] failure documented in this encounter Care Teams Talent Specialist Relationship Specialty Start Date End Date Slava Hernandez, PAIlanaC PCP - General Physician Formal Wear Rental Clerk 07/02/18 06/29/[address] [address] documented as of this encounter
--- OUTSIDE RECORDS SUMMARY | 2022-07-19 08:22 | XMS_ITS | Encounter Summary ---
:1940 Author Organization [place] Address [address] [facility] [address] Care Team Providers Name Role Phone Slava Hernandez PA-C Primary Care Provider Reason for Visit Reason Onset Date Comments Refill Request 10/15/2019 send eliquis to mail order pharmacy-I gave him samples to PU as he has not bee n taking due to cost Encounter Details Date Type Department Care Team Description 10/15/2019 Refill [facility] Heart Zarina Smith MD Refill Request ([facility] [place] [address] eliquis to mail order [address] [facility] [address] pharmacy-I gave him [address] [place] [address] samples to PU as he has [place] [phone] not been taking due to [phone] cost) Social History Tobacco Use Types Packs/Day Years Used Date Smoking Tobacco: Never Smokeless Tobacco: Never Alcohol Use Standard Drinks/Week Comments No 0 (1 standard drink = 0.6 oz pure alcoho l) Sex Assigned at Date Recorded Not on file documented as of this encounter Plan of Treatment Upcoming Encounters Date Type Specialty Care Team Description 08/16/2022 Ancillary Procedure Cardiology Timothy Smith MD [address] [place] [id number] (Wo rk) 08/16/2022 Office Visit Cardiology Timothy Smith MD [address] [place] [address] (Wo rk) documented as of this encounter Visit Diagnoses Diagnosis Paroxysmal atrial fibrillation (H) Atrial fibrillation documented in this encounter Care Teams Fish Hatchery Assistant Relationship Specialty Start Date End Date Slava Hernandez PA-C PCP - General Physician Drum Tender 07/02/18 06/29/21 [facility] [address] [place] [address] documented as of this encounter
--- OUTSIDE RECORDS SUMMARY | 2022-07-19 08:22 | XMS_ITS | Encounter Summary ---
:1940 Author Organization [place] Address [address] [facility] [address] Care Team Providers Name Role Phone Slava Hernandez PA-C Primary Care Provider Reason for Referral (Routine) - Closed Specialty Diagnoses / Procedures Referred By Contact Refer red To Contact Diagnoses Persistent atrial fibrillation (H) Cardiac pacemaker in situ Elda Johnson APRN CNP [address] [place] [address] Referral ID Status Reason Start Date Expiration Date Visits Requ ested Visits Authorized [id number] Closed 01/20/2020 01/19/2021 1 1 Reason for Visit Reason Onset Date Comments Atrial Fib 01/20/2020 (Routine) - Closed Specialty Diagnoses / Procedures Referred By Contact Refer red To Contact Diagnoses Persistent atrial fibrillation (H) Timothy Smith MD [address] [place] [address] Referral ID Status Reason Start Date Expiration Date Visits Requ ested Visits Authorized [id number] Closed 06/25/2019 06/24/2020 1 1 Encounter Details Date Type Department Care Team Description 01/20/2020 Virtual Visit [facility] Elda Johnson atrial fibrillation (Primary Dx); Heart Clinic [place] Montoya APRN CNP Cardiac pacemaker in situ; [address] [facility] [address] [facility] Paroxysmal atrial fibrillation (H) [place] [address] [place] [address] [place] [address] [phone] Social History Tobacco Use Types Packs/Day Years [...] this encounter Progress Notes Elda Johnson APRN MIXER OPERATOR HOT METAL - 01/20/2020 9:30 AM CDT [place] [...] on your insurance coverage. Please reach out toyour insurance provider with any questions. If during [...] invitation sent by: Text to cell phone: [phone] Doximity Video Start Time: 9:30 am Additional provider [...] (diabetes, CAD, age++) 3. Sinus node dysfunction??s/p??dual-chamber [employer] pacemaker 01/2016. 4. Coronary disease??s/p 4v CABG (1986) - ??VG -OM, VG-RCA, VG-LAD and VG- Diagonal at that time. Angiogram 01/2016 showed patent VGs 5. Cardiomyopathy?? 6. RBBB 7. Obstructive sleep apnea 8. type 2 diabetes 9. obesity Diagnostics: ?? Device check (10/2019) revealed A-paced <1% GULLET SLITTER: 61 % Stable leads. Battery life 9 [...] adverse side effects and Financial programs through [employer]. ?? Coronary artery disease. Patient had??a CABG [...] Dr. Smith and encouraged pt to seek [employer]'s financial assistance for Eliquis ?? Patient expresses understanding and agreement with the plan. ?? I appreciate the chance to help with [place]is [place] Please let me know if you have any questions or concerns. ?? Elda Johnson APRN, AQUILINO Video-Visit Details Type of service: Video Visit Video End Time (time video stopped): 9:40 Originating Location (pt. Location): Home Distant Location (provider location): [facility] Mode of Communication: Video Conference via GroupSwim Elda Johnson APRN CNP documented in this encounter Plan of Treatment Upcoming Encounters Date Type Specialty Care Team Description 08/16/2022 Ancillary Procedure Cardiology Timothy Smith MD [address] [place] [address] (Wo rk) 08/16/2022 Office Visit Cardiology Timothy Smith MD [address] [place] [address] (Wo rk) Scheduled Referrals Name Type Priority Associated Diagnoses Order S chedule Follow-Up with Referral Routine Persistent atrial Expected : Roller Painter fibrillation 07/21/2020 Cardiac pacemaker in (Approx imate), situ Expires: 01/19/2021 documented as of this encounter Visit Diagnoses Diagnosis Persistent atrial fibrillation (H) - [facility] Atrial fibrillation Cardiac pacemaker in situ Paroxysmal atrial fibrillation (H) Atrial fibrillation documented in this encounter Care Teams Nurse Discharge Planner Relationship Specialty Start Date End Date Slava Hernandez, PAIlanaC PCP - General Physician Supply Service Worker 07/02/18 06/29/21 [facility] [address] [place] [address] documented as of this encounter
--- OUTSIDE RECORDS SUMMARY | 2022-07-19 08:22 | XMS_ITS | Encounter Summary ---
:1940 Author Organization [place] Address [facility] [place] [address] Care Team Providers Name Role Phone Slava Hernandez PA-C Primary Care Provider Reason for Visit Reason Comments CORE Enrollment Encounter Details Date Type Department Care Team Description 02/03/2019 Office Visit [facility] Elda Johnson APRN FLEET MAINTENANCE FOREMAN [address] [place] [address] [facility] FLEET MAINTENANCE FOREMAN [address] [facility] [address] [place], [place] [address] congestive heart Heart failure (H) [facility] [place] [address] Social History Tobacco Use Types [...] for any questions or concerns Mon-Fri 8am-4pm: [phone] For concerns after hours: [phone] Medication changes: No changes Plan from today: [...] 3. Sinus node dysfunction: Status post dual-chamber [employer] pacemaker 01/2016. 4. Coronary disease: Status [...] if needed. LINA NORIEGA APRN, AQUILINO MT: PERLITA Name: RADHA VILLA Account: [id number] : 1940 Service Date: 02/03/2019 Document: [id number] Lina Noriega APRN CNP - 02/03/2019 10:50 AM CDT HPI and Plan: See [id number] No orders of the defined types were [...] on phone: None Gets together: None Attends cheondoism service: None Active member of club or organization: None Attends meetings of clubs or organizations: None Relationship status: None ??? Intimate partner violence: Fear of current or ex partner: None Emotionally abused: None Physically abused: None Forced sexual activity: None Other Topics Concern ??? Parent/sibling w/ CABG, MA or angioplasty before 65F 55M? No ??? [...] Oriented x 3 CC Elda Johnson APRN FLEET MAINTENANCE FOREMAN [address] [place] [address] documented in this encounter Plan of Treatment Upcoming Encounters Date Type Specialty Care Team Description 08/16/2022 Ancillary Procedure Cardiology Timothy Smith MD [address] [place] [address] (Wo rk) 08/16/2022 Office Visit Cardiology Timothy Smith MD [address] [place] [address] (Wo rk) documented as of this encounter Visit Diagnoses Diagnosis Chronic systolic congestive heart failur e (H) Chronic systolic heart failure documented in this encounter Care Teams Lighter Relationship Specialty Start Date End Date Slava Hernandez PA-C PCP - General Physician Circuit Breaker Assembler 07/02/18 06/29/[address] [address] documented as of this encounter
--- OUTSIDE RECORDS SUMMARY | 2022-07-19 08:22 | XMS_ITS | Encounter Summary ---
:1940 Author Organization [place] Address [facility] [place] [address] Care Team Providers Name Role Phone Slava Hernandez PA-C Primary Care Provider Reason for Visit Reason Onset Date Comments Refill Request 02/24/2020 SL NTG Encounter Details Date Type Department Care Team Description 02/24/2020 Refill [facility] Heart [place] Refill Request (SL NTG) Clinic Patt Torres PA-C [address] [facility] [address] [facility] [address] [place] [address] [place] [address] (Wo rk) Social History Tobacco Use Types [...] 08/16/2022 Ancillary Procedure Cardiology Timothy Smith MD [address] [place] [address] (Wo rk) 08/16/2022 Office Visit Cardiology Timothy Smith MD [address] [place] [phone] (Wo rk) documented as of this encounter Visit Diagnoses Diagnosis Coronary artery disease involving chenega coronary artery of chenega heart without angina pectoris documented in this encounter Care Teams Flash Welder Relationship Specialty Start Date End Date Slava Hernandez PA-C PCP - General Physician Educational Aid 07/02/18 06/29/21 [facility] [address] [place] [address] documented as of this encounter
--- OUTSIDE RECORDS SUMMARY | 2022-07-19 08:22 | XMS_ITS | Encounter Summary ---
:1940 Author Organization [place] Address [facility] [place] [address] Care Team Providers Name Role Phone Slava Hernandez PA-C Primary Care Provider Reason for Visit Reason Onset Date Comments Refill Request 07/11/2019 Eliquis Encounter Details Date Type Department Care Team Description 07/11/2019 Refill [facility] Heart Zarina Smith MD Refill Request (Eliquis) [facility] [place] [address] [place] [id number] [address] [place] [address] [place] [phone] [phone] Social History Tobacco Use Types Packs/Day Years [...] [address] [place] [address] (Wo rk) 08/16/2022 Office Visit Cardiology Timothy Smith MD [address] [place] [phone] (Wo rk) documented as of this encounter Visit Diagnoses Diagnosis Paroxysmal atrial fibrillation (H) Atrial fibrillation documented in this encounter Care Teams Welfare Interviewer Relationship Specialty Start Date End Date Slava Hernandez PA-C PCP - General Physician Elder Assistant 07/02/18 06/29/21 [facility] [address] [place] [address] documented as of this encounter
--- OUTSIDE RECORDS SUMMARY | 2022-07-19 08:22 | XMS_ITS | Encounter Summary ---
:1940 Author Organization [place] Address [address] [facility] [place] [address] Care Team Providers Name Role Phone Slava Hernandez PA-C Primary Care Provider Reason for Visit CV Testing - Closed Specialty Diagnoses / Procedures Referred By Contact Refer red To Contact Diagnoses Syncope and collapse Steven Canchola, Procedures Cardiac Device Check - Remote [address] [facility] [address] [place] [address] Referral ID Status Reason Start Date Expiration Date Visits Requ ested Visits Authorized [id number] Closed 12/10/2018 12/10/2019 1 1 Encounter Details Date Type Department Care Team Description 03/18/2019 Ancillary [facility] Steven Canchola Sync ope and Procedure [facility] MD Jose collapse [facility] [address] [facility] [address] [facility] [address] [place] [address] [place], [place] [phone] (Wo rk) [address] [phone] Social History Tobacco Use Types Packs/Day Years Used Date Smoking Tobacco: Never Smokeless Tobacco: Never Alcohol Use Standard Drinks/Week Comments No 0 (1 standard drink = 0.6 oz pure alcoho l) Sex Assigned at Date Recorded Not on file documented as of this encounter Plan of Treatment Upcoming Encounters Date Type Specialty Care Team Description 08/16/2022 Ancillary Procedure Cardiology Timothy Smith MD [address] [place] [id number] (Wo rk) 08/16/2022 Office Visit Cardiology Timothy Smith MD [address] [place] [address] (Wo rk) documented as of this encounter [...] Range Method Time At Signature Date Time [id number] [employer]TRONIC Interrogation Session Implantable [place] [employer]ONIC Pulse Generator Warehousing Technician Implantable L121 ESSENTIO EL MEDTRONIC Pulse Generator Model Implantable [id number] MEDTRONIC Pulse Generator Serial Number Type Remote MEDTRONIC Interrogation Session Clinic Name [facility]IC Implantable Pacemaker MEDTRONIC Pulse Generator Type Implantable [id number] MEDTRONIC Pulse Generator Implant Date Implantable Lead [facility] MEDTRO RAUL Warehousing Technician Implantable Lead 2088TC Tendril MEDTRONI C Model STS Implantable Lead [id number] MEDTRONIC Serial Number Implantable Lead [id number] MEDTRONIC Implant Date Implantable Lead Bipolar Lead MEDTRONIC Polarity Type Implantable Lead UNKNOWN [facility]TRONIC Location Detail 1 Implantable Lead Right Atrium MEDTRONIC Location Implantable Lead [facility] MEDTRO RAUL Warehousing Technician Implantable Lead 2088TC Tendril MEDTRONI C Model STS Implantable Lead [id number] MEDTRONIC Serial Number Implantable Lead [id number] MEDTRONIC [...] MEDTRONIC Pacing Threshold Pulse Width Battery Date [id number] MEDTRONIC Time of Measurements Battery Status Beginning of MEDTRONIC Service Battery 114 mo MEDTRONIC Remaining Longevity Battery 100 % MEDTRONIC Remaining Percentage Brandon Statistic [id number] MEDTRONIC Date Time Start Brandon Statistic [id number] MEDTRONIC Date Time End Brandon Statistic 0 % MEDTRONIC RA Percent Paced Brandon Statistic 60 % MEDTRONIC RV Percent Paced Atrial Tachy [id number] MEDTRONIC Statistic Date Time Start Atrial Tachy [id number] MEDTRONIC Statistic Date Time End Atrial Tachy 100 % MEDTRONIC Statistic AT/AF [place] Percent Episode 1 MEDTRONIC Statistic Recent Count [...] [place] MEDTRONIC Statistic Vendor Type Category Episode [id number] MEDTRONIC Statistic Recent Date Time Start Episode [id number] MEDTRONIC Statistic Recent Date Time End Episode [id number] MEDTRONIC Statistic Recent Date Time Start Episode [id number] MEDTRONIC Statistic Recent Date Time End Episode [id number] MEDTRONIC Statistic Recent Date Time Start Episode [id number] MEDTRONIC Statistic Recent Date Time End Episode [id number] MEDTRONIC Statistic Recent Date Time Start Episode [id number] MEDTRONIC Statistic Recent Date Time End Episode APM-91 MEDTRONIC Identifier Episode Type Periodic EGM MEDTRONIC Category Episode Date [id number] MEDTRONIC Time Episode [id number]-[id number] MEDTRONIC Identifier Episode Type Other MEDTRONIC Category Episode Date [id number] MEDTRONIC Time Episode V-1456 MEDTRONIC Identifier Episode Type [place] MEDTRONIC Category Episode Date [id number] MEDTRONIC Time Episode Duration 22 s MEDTRONIC Episode V-1455 MEDTRONIC Identifier Episode Type SVT MEDTRONIC Category Episode Vendor SVT MEDTRONIC Type Category Episode Date [id number] MEDTRONIC Time Episode Duration 110 s MEDTRONIC Episode V-1454 MEDTRONIC Identifier Episode Type VT MEDTRONIC Category Episode Date [id number] MEDTRONIC Time Episode Duration 15 s MEDTRONIC Episode V-1453 MEDTRONIC Identifier Episode Type VT MEDTRONIC Category Episode Date [id number] MEDTRONIC Time Episode Duration 21 s MEDTRONIC Episode V-1452 MEDTRONIC Identifier Episode Type VT MEDTRONIC Category Episode Date [id number] MEDTRONIC Time Episode Duration 21 s MEDTRONIC Episode V-1451 MEDTRONIC Identifier Episode Type VT MEDTRONIC Category Episode Date [id number] MEDTRONIC Time Episode Duration 15 s MEDTRONIC Episode V-1450 MEDTRONIC Identifier Episode Type VT MEDTRONIC Category Episode Date [id number] MEDTRONIC Time Episode Duration 17 s MEDTRONIC Episode V-1449 MEDTRONIC Identifier Episode Type VT MEDTRONIC Category Episode Date [id number] MEDTRONIC Time Episode Duration 13 s MEDTRONIC Episode V-1448 MEDTRONIC Identifier Episode Type VT MEDTRONIC Category Episode Date [id number] MEDTRONIC Time Episode Duration 19 s MEDTRONIC Episode ATR-6506 MEDTRONIC Identifier Episode Type AT/AF MEDTRONIC Category Episode Date [id number] MEDTRONIC Time Episode V-1447 MEDTRONIC Identifier Episode Type [place] MEDTRONIC Category Episode Date [id number] MEDTRONIC Time Episode Duration 17 s MEDTRONIC Episode V-1446 MEDTRONIC Identifier Episode Type [place] MEDTRONIC Category Episode Date [id number] MEDTRONIC Time Episode Duration 14 s MEDTRONIC Anatomical Region Laterality Modality Other Specimen (Source) Anatomical Collection Method Collection Time Re ceived Time Location / / Volume Laterality 03/18/2019 5:41 AM CDT Narrative 03/19/2019 2:34 PM CDT [employer] L121 Erwino EL (D) Remote PPM Device CheckAP: 0%CORPORATE TAX PREPARER: 60%Mode: DDDRPresenting Rhythm: Chronic Afib and VPHeart [...] collapse documented in this encounter Care Teams Senior Application Programmer Relationship Specialty Start Date End Date Slava Hernandez PA-C PCP - General Physician Human Relations Professor 07/02/18 06/29/21 [place] [address] documented as of this encounter
--- OUTSIDE RECORDS SUMMARY | 2022-07-19 08:22 | XMS_ITS | Encounter Summary ---
:1940 Author Organization [place] Address [address] [facility] [place] [address] Care Team Providers Name Role Phone Slava Hernandez PA-C Primary Care Provider Reason for Visit CV Testing (Routine) - Closed Specialty Diagnoses / Procedures Referred By Contact Refer red To Contact Diagnoses Cardiac pacemaker in situ [facility] Cardiac Services Procedures Cardiac Device Check - Remote [address] [facility] [address] [place] [address] Referral ID Status Reason Start Date Expiration Date Visits Requ ested Visits Authorized [id number] Closed 01/23/2019 01/23/2020 1 1 Encounter Details Date Type Department Care Team Description 06/25/2019 Ancillary Procedure [facility] Basil Guadalupe ardiac pacemaker in [facility] MD Tawanda situ Heart Care [address] [facility] [id number] [facility] [address] [place] [address] [place] [phone] [address] (Work) [phone] Social History Tobacco Use Types Packs/Day Years Used Date Smoking Tobacco: Never Smokeless Tobacco: Never Alcohol Use Standard Drinks/Week Comments No 0 (1 standard drink = 0.6 oz pure alcoho l) Sex Assigned at Date Recorded Not on file documented as of this encounter Plan of Treatment Upcoming Encounters Date Type Specialty Care Team Description 08/16/2022 Ancillary Procedure Cardiology Timothy Smith MD [address] [place] [address] (Wo rk) 08/16/2022 Office Visit Cardiology Timothy Smith MD [address] [place] [address] (Wo rk) documented as of this encounter [...] Range Method Time At Signature Date Time [id number] MEDTRONIC Interrogation Session Implantable [employer] [employer] MEDTRONIC Pulse Generator Lawn Mower Mechanic Implantable L121 ESSENTIO EL MEDTRONIC Pulse Generator Model Implantable [id number] MEDTRONIC Pulse Generator Serial Number Type Remote MEDTRONIC Interrogation Session Clinic Name [facility]ONIC Implantable Pacemaker MEDTRONIC Pulse Generator Type Implantable [id number] MEDTRONIC Pulse Generator Implant Date Implantable Lead [facility] MED[facility]O RAUL Lawn Mower Mechanic Implantable Lead 2088TC Tendril MEDTRONI C Model STS Implantable Lead [id number] MEDTRONIC Serial Number Implantable Lead [id number] MEDTRONIC Implant Date Implantable Lead Bipolar Lead MEDTRONIC Polarity Type Implantable Lead UNKNOWN MEDTRONIC Location Detail 1 Implantable Lead Right Atrium MEDTRONIC Location Implantable Lead [facility] [facility] MEDTRO RAUL Lawn Mower Mechanic Implantable Lead 2088TC Tendril MEDTRONI C Model STS Implantable Lead [id number] MEDTRONIC Serial Number Implantable Lead [id number] MEDTRONIC Implant Date Implantable Lead Bipolar Lead [...] MEDTRONIC Pacing Threshold Pulse Width Battery Date 63272703988926 MEDTRONIC Time of Measurements Battery Status Beginning of MEDTRONIC Service Battery 108 mo MEDTRONIC Remaining Longevity Battery 100 % MEDTRONIC Remaining Percentage Brandon Statistic [id number] MEDTRONIC Date Time Start Brandon Statistic [id number] MEDTRONIC Date Time End Brandon Statistic 0 % MEDTRONIC RA Percent Paced Brandon Statistic 62 % MEDTRONIC RV Percent Paced Atrial Tachy 47138878646912 MEDTRONIC Statistic Date Time Start Atrial Tachy 10654399060344 MEDTRONIC Statistic Date Time End Atrial Tachy 100 % MEDTRONIC Statistic AT/AF [place] Percent Episode 5 MEDTRONIC Statistic Recent Count [...] [place] MEDTRONIC Statistic Vendor Type Category Episode [id number] MEDTRONIC Statistic Recent Date Time Start Episode [id number] MEDTRONIC Statistic Recent Date Time End Episode [id number] MEDTRONIC Statistic Recent Date Time Start Episode [id number] MEDTRONIC Statistic Recent Date Time End Episode [id number] MEDTRONIC Statistic Recent Date Time Start Episode [id number] MEDTRONIC Statistic Recent Date Time End Episode [id number] MEDTRONIC Statistic Recent Date Time Start Episode [id number] MEDTRONIC Statistic Recent Date Time End Episode APM-92 MEDTRONIC Identifier Episode Type Periodic EGM MEDTRONIC Category Episode Date [id number] MEDTRONIC Time Episode RVAT-2151 MEDTRONIC Identifier Episode Type Other MEDTRONIC Category Episode Date [id number] MEDTRONIC Time Episode ATR-6510 MEDTRONIC Identifier Episode Type AT/AF MEDTRONIC Category Episode Date [id number] MEDTRONIC Time Episode V-1530 MEDTRONIC Identifier Episode Type VT MEDTRONIC Category Episode Date [id number] MEDTRONIC Time Episode Duration 15 s MEDTRONIC Episode V-1529 MEDTRONIC Identifier Episode Type VT MEDTRONIC Category Episode Date [id number] MEDTRONIC Time Episode Duration 14 s MEDTRONIC Episode V-1528 MEDTRONIC Identifier Episode Type VT MEDTRONIC Category Episode Date [id number] MEDTRONIC Time Episode Duration 15 s MEDTRONIC Episode V-1527 MEDTRONIC Identifier Episode Type VT MEDTRONIC Category Episode Date [id number] MEDTRONIC Time Episode Duration 14 s MEDTRONIC Episode V-1526 MEDTRONIC Identifier Episode Type VT MEDTRONIC Category Episode Date [id number] MEDTRONIC Time Episode Duration 14 s MEDTRONIC Episode V-1525 MEDTRONIC Identifier Episode Type VT MEDTRONIC Category Episode Date [id number] MEDTRONIC Time Episode Duration 15 s MEDTRONIC Episode V-1524 MEDTRONIC Identifier Episode Type VT MEDTRONIC Category Episode Date [id number] MEDTRONIC Time Episode Duration 40 s MEDTRONIC Episode V-1523 MEDTRONIC Identifier Episode Type VT MEDTRONIC Category Episode Date [id number] MEDTRONIC Time Episode Duration 16 s MEDTRONIC Episode V-1522 MEDTRONIC Identifier Episode Type VT MEDTRONIC Category Episode Date [id number] MEDTRONIC Time Episode Duration 15 s MEDTRONIC Episode V-1521 MEDTRONIC Identifier Episode Type VT MEDTRONIC Category Episode Date [id number] MEDTRONIC Time Episode Duration 14 s MEDTRONIC Episode ATR-6509 MEDTRONIC Identifier Episode Type AT/AF MEDTRONIC Category Episode Date [id number] MEDTRONIC Time Episode Duration 1,020,750 s MEDTRONIC Episode ATR-6508 MEDTRONIC Identifier Episode Type AT/AF MEDTRONIC Category Episode Date [id number] MEDTRONIC Time Episode Duration 2,246,835 s MEDTRONIC Episode ATR-6507 MEDTRONIC Identifier Episode Type AT/AF MEDTRONIC Category Episode Date [id number] MEDTRONIC Time Episode Duration 30 s MEDTRONIC Anatomical Region Laterality Modality Other Specimen (Source) Anatomical Collection Method Collection Time Re ceived Time Location / / Volume Laterality 06/25/2019 5:40 AM CDT Narrative 07/01/2019 8:21 AM CDT [employer] L121 Essentio EL (D) Remote PPM Device CheckAP: 0%BAG MACHINE OPERATOR: 62%Mode: DDDRPresenting Rhythm: Afib wit h BAG MACHINE OPERATOR & VSHeart Rate: adequate heart rates per [...] situ documented in this encounter Care Teams Accounting Clerks Supervisor Relationship Specialty Start Date End Date Slava Hernandez PA-C PCP - General Physician Stonework Tracer 07/02/18 06/29/[address] [address] documented as of this encounter
--- OUTSIDE RECORDS SUMMARY | 2022-07-19 08:22 | XMS_ITS | Encounter Summary ---
:1940 Author Organization [place] Address [address] [facility] [place] [address] Care Team Providers Name Role Phone Slava Hernandez PA-C Primary Care Provider Reason for Referral (Routine) - Closed Specialty Diagnoses / Procedures Referred By Contact Refer red To Contact Diagnoses Persistent atrial fibrillation (H) Chronic systolic congestive heart failure (H) Elda Johnson APRN DIGITAL PRODUCTION MANAGER [address] [place] [address] Referral ID Status Reason Start Date Expiration Date Visits Requ ested Visits Authorized [id number] Closed 01/22/2019 01/22/2020 1 1 Specialty Diagnoses / Procedures Referred By Contact Refer red To Contact Elda Johnson APRN CNP [address] [place] [address] Referral ID Status Reason Start Date Expiration Date Visits Requ ested Visits Authorized Reason for Visit Reason Comments Follow Up 2 week followup - Closed Specialty Diagnoses / Procedures Referred By Contact Refer red To Contact Diagnoses Persistent atrial fibrillation (H) Timothy Smith MD [address] [place] [address] Referral ID Status Reason Start Date Expiration Date Visits Requ ested Visits Authorized [id number] Closed 01/01/2019 01/01/2020 1 1 Encounter Details Date Type Department Care Team Description 01/22/2019 Office Visit Timothy Howard MD [address] [place] [address] Chronic systolic congestive heart failur e (H) (Primary Dx); [facility] Elda Johnson APRN DIGITAL PRODUCTION MANAGER [address] [place] [address] Persistent atrial fibrillation (H) [facility] [place] [address] Social History Tobacco Use Types [...] this encounter Progress Notes Elda Johnson APRN DIGITAL PRODUCTION MANAGER - 01/22/2019 9:30 AM CDT HPI: [...] (diabetes, CAD, age++) 3.?Sinus node dysfunction??s/p dual-chamber [employer] pacemaker 01/2016. 4.?Coronary disease??status post 4v CABG 1986. Thought to be VG -OM, VG-RCA, VG-LAD and VG-D at that time. Angiogram 01/2016 showed patent VGs 5.?Cardiomyopathy, 6. RBBB 7.?Other diagnosis include Obstructive sleep apnea, type 2 diabetes, obesity Diagnostics: EKG??(11/15/2018) revealed intermittent??GUIDE CRUISE @ 76 bpm with 2 PVCs of [...] stress as his is currently hospitalized at [facility] and he had to stop 1x walking [...] any questions or concerns. Elda Johnson APRN, DIGITAL PRODUCTION MANAGER This note was completed in part using Yoka voice recognition software. Although reviewed after completion, some word and grammatical errors may occur. Orders Placed This Encounter Procedures ??? Basic metabolic panel ??? [facility] ??? Follow-Up with Electronic Publisher ??? EKG 12-lead complete w/read - Clinics [...] on phone: None Gets together: None Attends mandaeism service: None Active member of club or organization: None Attends meetings of clubs or organizations: None Relationship status: None ??? Intimate partner violence: Fear of current or ex partner: None Emotionally abused: None Physically abused: None Forced sexual activity: None Other Topics Concern ??? Parent/sibling w/ CABG, IL or angioplasty before 65F 55M? No ??? [...] 02/04/2016 CC Timothy Smith MD [address] [place] [address] documented in this encounter Plan of Treatment Upcoming Encounters Date Type Specialty Care Team Description 08/16/2022 Ancillary Procedure Cardiology Timothy Smith MD [address] [place] [id number] (Wo rk) 08/16/2022 Office Visit Cardiology Timothy Smith MD [address] [place] [id number] (Wo rk) Scheduled Referrals Name Type Priority Associated Diagnoses Order S [facility] Referral Routine Chronic systolic Expected: congestive heart 01/29/2019 failure (H) (Approximate), Expires: 01/23/2020 Follow-Up with Referral Routine Persistent atrial Expected : Electronic Publisher fibrillation (H) 04/23/2019 Chronic systolic (Approximat e), [...] (ABNORMAL) Basic metabolic panel (02/03/2019 11:17 AM T) Analysis Performed At [facility] Time Signature Sodium 140 133 - 144 02/03/2019 [place] mmol/L 12:07 PM [facility] Potassium 4.1 3.4 - 5.3 02/03/2019 [place] mmol/L 12:07 PM [facility] Chloride 104 94 - 109 02/03/2019 [place] mmol/L 12:07 PM [facility] Carbon Dioxide 30 20 - 32 02/03/2019 [place] mmol/L 12:15 PM [facility] Anion Gap 6 3 - 14 02/03/2019 [place] mmol/L 12:15 PM [facility] Glucose 95 70 - 99 02/03/2019 [place] mg/dL 12:15 PM [facility] Urea Nitrogen 39 (H) 7 - 30 02/03/2019 [place] mg/dL 12:15 PM [facility] Creatinine 1.64 (H) 0.66 - 02/03/2019 [place] 1.25 mg/dL 12:15 PM [facility] GFR Estimate 39 (L) >60 02/03/2019 [place] mL/min/{1. 12:15 PM [facility] 73_m2} [facility]OS[facility] Comment: Non GFR Calc Starting 09/17/2018, serum creatinine ba sed estimated GFR (eGFR) will be calculated using the Chronic Kidney Dise ase Epidemiology Collaboration (CKD-EPI) equation. GFR Estimate If 45 (L) >60 mL/min/{1.73_m2} 02/03/2019 12:[address] [facility] Comment: GFR Calc Starting 09/17/2018, serum creatinine ba sed estimated GFR (eGFR) will be calculated using the Chronic Kidney Dise ase Epidemiology Collaboration (CKD-EPI) equation. Calcium 9.6 8.5 - 10.1 mg/dL 02/03/2019 12:15 PM CDT [facility] Specimen Anatomical Collection Method Collection Time Receive d Time (Source) Location / / Volume Laterality Blood specimen 02/03/2019 11:17 9 (specimen) AM CDT 11:22 AM CDT Elda Johnson APRN, CNP LAB - BLOOD ORDERABL ES Performing Organization Address City/State/ZIP Code Phon e Number M [facility] [address] [place], [place] [address] [facility] [address] [place], [place] [address] [phone] EKG 12-lead complete w/read - Clinics (performed today) (01/22/2019 3:09 PM CDT) Narrative This result has an attachment that is no t available. Elda Johnson APRN, CNP ECG ORDERABLES documented in this encounter Visit Diagnoses Diagnosis Chronic systolic congestive heart failur e (H) - Primary Chronic systolic heart failure Persistent atrial fibrillation (H) Atrial fibrillation documented in this encounter Care Teams Kapok Machine Operator Relationship Specialty Start Date End Date Slava Hernandez PA-C PCP - General Physician Clutch Assembler 07/02/18 06/29/[address] [address] documented as of this encounter
--- OUTSIDE RECORDS SUMMARY | 2022-07-19 08:22 | XMS_ITS | Encounter Summary ---
:1940 Author Organization [place] Address [facility] [place] [address] Care Team Providers Name Role Phone Slava [...] MD [address] [place] [address] (Wo rk) 08/16/2022 Office Visit Cardiology Timothy Smith MD [address] [place] [address] (Wo rk) documented as of this encounter Visit Diagnoses Not on filedocumented in this encounter Care Teams Compensation Intern Relationship Specialty Start Date End Date Slava Hernandez PA-C PCP - General Physician Topology Teacher 07/02/18 06/29/21 [facility] [address] [place] [address] documented as of this encounter
--- OUTSIDE RECORDS SUMMARY | 2022-07-19 08:22 | XMS_ITS | Encounter Summary ---
:1940 Author Organization [place] Address [address] [facility] [address] Care Team Providers Name Role Phone Slava Hernandez PA-C Primary Care Provider Encounter Details Date Type Department Care Team Description 02/03/2019 [facility] Heart Superintendent Building [facility] [place] congestive heart failure [address] [facility] [address] [place] [address] Social History Tobacco Use [...] [address] [place] [id number] (Wo rk) 08/16/2022 Office Visit Cardiology Timothy Smith MD [address] [place] [id number] (Wo rk) documented as of this encounter [...] Signature Sodium 140 133 - 144 02/03/2019 [place] mmol/L 12:07 PM [facility] Potassium 4.1 3.4 - 5.3 02/03/2019 [place] mmol/L 12:07 PM [facility] Chloride 104 94 - 109 02/03/2019 [place] mmol/L 12:07 PM [facility] Carbon Dioxide 30 20 - 32 02/03/2019 [place] mmol/L 12:15 PM [facility] Anion Gap 6 3 - 14 02/03/2019 [place] mmol/L 12:15 PM [facility] Glucose 95 70 - 99 02/03/2019 [place] mg/dL 12:15 PM [facility] Urea Nitrogen 39 (H) 7 - 30 02/03/2019 [place] mg/dL 12:15 PM [facility] Creatinine 1.64 (H) 0.66 - 02/03/2019 [place] 1.25 mg/dL 12:15 PM [facility] GFR Estimate 39 (L) >60 02/03/2019 [place] mL/min/{1. 12:15 PM [facility] 73_m2} [facility] Comment: Non GFR Calc Starting 09/17/2018, serum creatinine ba sed estimated GFR (eGFR) will be calculated using the Chronic Kidney Dise [facility] Epidemiology Collaboration (CKD-EPI) equation. GFR Estimate If 45 (L) >60 mL/min/{1.73_m2} 02/03/2019 12:15 PM [facility] Comment: GFR Calc Starting 09/17/2018, serum creatinine ba sed estimated GFR (eGFR) will be calculated using the Chronic Kidney Dise [facility] Epidemiology Collaboration (CKD-EPI) equation. Calcium 9.6 8.5 - 10.1 mg/dL 02/03/2019 12:15 PM [facility] Specimen Anatomical Collection Method Collection Time Receive d Time (Source) Location / / Volume Laterality Blood specimen 02/03/2019 11:17 9 (specimen) AM CDT 11:22 AM CDT Elda Johnson APRN [place] TRAFFIC CHECKER LAB - BLOOD ORDERABL ES Performing Organization Address City/State/ZIP Code Phon e Number M [facility] [address] [place], [place] [address] [facility] [address] [place] [place], [place] [address] [place] [address] documented in this encounter Visit Diagnoses Diagnosis Chronic systolic congestive heart failur e (H) Chronic systolic heart failure documented in this encounter Care Teams Gear Shaper Set Up Operator Relationship Specialty Start Date End Date Slava Hernandez PA-C PCP - General Physician Sewer And Drain Technician 07/02/18 06/29/21 [facility] [address] [place] [address] documented as of this encounter
--- OUTSIDE RECORDS SUMMARY | 2022-07-19 08:22 | XMS_ITS | Encounter Summary ---
:1940 Author Organization [place] Address [facility] [place] [address] Care Team Providers Name Role Phone Slava [...] MD [address] [place] [address] (Wo rk) 08/16/2022 Office Visit Cardiology Timothy Smith MD [address] [place] [address] (Wo rk) documented as of this encounter Visit Diagnoses Not on filedocumented in this encounter Care Teams Entry Level Paralegal Relationship Specialty Start Date End Date Slava Hernandez PA-C PCP - General Physician Underwater Photographer 07/02/18 06/29/21 [facility] [address] [place] [address] documented as of this encounter
--- OUTSIDE RECORDS SUMMARY | 2022-07-19 08:22 | XMS_ITS | Encounter Summary ---
:1940 Author Organization [place] Address [address] [facility] [place] [address] Care Team Providers Name Role Phone Slava Hernandez PA-C Primary Care Provider Reason for Visit CV Testing (Routine) - Closed Specialty Diagnoses / Procedures Referred By Contact Refer red To Contact Diagnoses Cardiac pacemaker in situ Basil Guadalupe MD Procedures Cardiac Device Check - Remote [address] [place] [id number] Referral ID Status Reason Start Date Expiration Date Visits Requ ested Visits Authorized [id number] Closed 10/15/2019 10/14/2020 1 1 Encounter Details Date Type Department Care Team Description 01/27/2020 Ancillary Procedure [facility] Basil Guadalupe ardiac pacemaker in [facility] MD [place] situ Heart Care [address] [facility] [address] [facility] [address] [place] [address] [place] [phone] [address] (Work) [phone] Social History Tobacco Use Types Packs/Day Years [...] [address] [place] [address] (Wo rk) 08/16/2022 Office Visit Cardiology Timothy Smith MD [address] [place] [phone] (Wo rk) documented as of this encounter [...] Range Method Time At Signature Date Time [id number] MEDTRONIC Interrogation Session Implantable [place] [employer]IC Pulse Generator Camera Repair Technician Implantable L121 ESSENTIO EL MEDTRONIC Pulse Generator Model Implantable [id number] MEDTRONIC Pulse Generator Serial Number Type Remote [facility]IC [facility]rogation [facility] MEDTRONIC Pulse Generator Type Implantable [id number] MEDTRONIC Pulse Generator Implant Date Implantable Lead [facility] RAUL Camera Repair Technician Implantable Lead 2087TC Tendril MEDTRONI C Model STS Implantable Lead [id number] MEDTRONIC Serial Number Implantable Lead [id number] MEDTRONIC Implant Date Implantable Lead Bipolar Lead MEDTRONIC Polarity Type Implantable Lead UNKNOWN MEDTRONIC Location Detail 1 Implantable Lead Right Atrium [employer] Location Implantable Lead [facility] RAUL Camera Repair Technician Implantable Lead 2087TC Tendril MEDTRONI C Model STS Implantable Lead [id number] MEDTRONIC Serial Number Implantable Lead [id number] MEDTRONIC Implant Date Implantable Lead Bipolar Lead [...] MEDTRONIC Pacing Threshold Pulse Width Battery Date [id number] MEDTRONIC Time of Measurements Battery Status Beginning of MEDTRONIC Service Battery 144 mo MEDTRONIC Remaining Longevity Battery 100 % MEDTRONIC Remaining Percentage Brandon Statistic [id number] MEDTRONIC Date Time Start Brandon Statistic [id number] MEDTRONIC Date Time End Brandon Statistic 0 [...] [place] MEDTRONIC Statistic Vendor Type Category Episode [id number] MEDTRONIC Statistic Recent Date Time Start Episode [id number] MEDTRONIC Statistic Recent Date Time End Episode [id number] MEDTRONIC Statistic Recent Date Time Start Episode [id number] MEDTRONIC Statistic Recent Date Time End Episode [id number] MEDTRONIC Statistic Recent Date Time Start Episode [id number] MEDTRONIC Statistic Recent Date Time End Episode [id number] MEDTRONIC Statistic Recent Date Time Start Episode [id number] MEDTRONIC Statistic Recent Date Time End Episode APM-94 MEDTRONIC Identifier Episode Type Periodic EGM MEDTRONIC Category Episode Date [id number] MEDTRONIC Time Episode [id number] MEDTRONIC Identifier Episode Type Other MEDTRONIC Category Episode Date [id number] MEDTRONIC Time Episode V-1550 MEDTRONIC Identifier Episode Type [place] MEDTRONIC Category Episode Date [id number] MEDTRONIC Time Episode Duration 16 s MEDTRONIC Episode V-1549 MEDTRONIC Identifier Episode Type [place] MEDTRONIC Category Episode Date [id number] MEDTRONIC Time Episode Duration 26 s MEDTRONIC Episode V-1548 MEDTRONIC Identifier Episode Type VT MEDTRONIC Category Episode Date [id number] MEDTRONIC Time Episode Duration 28 s MEDTRONIC Episode V-1547 MEDTRONIC Identifier Episode Type VT MEDTRONIC Category Episode Date [id number] MEDTRONIC Time Episode Duration 12 s MEDTRONIC Episode V-1546 MEDTRONIC Identifier Episode Type VT MEDTRONIC Category Episode Date [id number] MEDTRONIC Time Episode Duration 14 s MEDTRONIC Episode V-1545 MEDTRONIC Identifier Episode Type VT MEDTRONIC Category Episode Date [id number] MEDTRONIC Time Episode Duration 21 s MEDTRONIC Episode V-1544 MEDTRONIC Identifier Episode Type VT MEDTRONIC Category Episode Date [id number] MEDTRONIC Time Episode Duration 14 s MEDTRONIC Episode V-1543 MEDTRONIC Identifier Episode Type VT MEDTRONIC Category Episode Date [id number] MEDTRONIC Time Episode Duration 37 s MEDTRONIC Episode V-1542 MEDTRONIC Identifier Episode Type VT MEDTRONIC Category Episode Date [id number] MEDTRONIC Time Episode Duration 14 s MEDTRONIC Episode V-1541 MEDTRONIC Identifier Episode Type VT MEDTRONIC Category Episode Date [id number] MEDTRONIC Time Episode Duration 23 s MEDTRONIC Anatomical Region Laterality Modality Other Specimen (Source) Anatomical Collection Method Collection Time Re ceived Time Location / / Volume Laterality 01/27/2020 12:41 AM CDT Narrative 02/10/2020 3:26 PM CDT [employer] Essentio (S) Remote PPM Device Check ORGANIZATIONAL CONSULTANT: 35%, Chronic AFib, taking Eliquis Mode: VVIR Presenting Rhythm: ORGANIZATIONAL CONSULTANT Heart Rate: adequate heart rates per his [...] Gave patient results over the phone. KAE Keen I have reviewed and interpreted the agustín ce interrogation, settings, programming and nurse's summary. The dev ice is functioning within normal device parameters. I agree with the curr ent findings, assessment and plan. Basil Guadalupe MD CV CARDIAC SERVICES ORDERABL ES documented in this encounter Visit Diagnoses Diagnosis Cardiac pacemaker in situ documented in this encounter Care Teams Director Of Corporate Strategy Relationship Specialty Start Date End Date Slava Hernandez, PAIlanaC PCP - General Physician Pre Billing Specialist 07/02/18 06/29/21 [facility] [address] [place] [address] documented as of this encounter
--- OUTSIDE RECORDS SUMMARY | 2022-07-19 08:22 | XMS_ITS | Encounter Summary ---
:1940 Author Organization [place] Address [facility] [place] [address] Care Team Providers Name Role Phone Slava [...] MD [address] [place] [address] (Wo rk) 08/16/2022 Office Visit Cardiology Timothy Smith MD [address] [place] [address] (Wo rk) documented as of this encounter Visit Diagnoses Not on filedocumented in this encounter Care Teams Top Steep Tender Relationship Specialty Start Date End Date Slava Hernandez PA-C PCP - General Physician Avian Keeper 07/02/18 06/29/21 [facility] [address] [place] [address] documented as of this encounter
--- OUTSIDE RECORDS SUMMARY | 2022-07-19 08:22 | XMS_ITS | Encounter Summary ---
:1940 Author Organization [place] Address [facility] [place] [address] Care Team Providers Name Role Phone Slava [...] [address] [place] [phone] (Wo rk) 08/16/2022 Office Visit Cardiology Timothy Smith MD [address] [place] [phone] (Wo rk) documented as of this encounter Visit Diagnoses Not on filedocumented in this encounter Care Teams Tire Finisher Relationship Specialty Start Date End Date Slava Hernandez PA-C PCP - General Physician Registration Officer 07/02/18 06/29/21 [facility] [address] [place] [address] documented as of this encounter
--- OUTSIDE RECORDS SUMMARY | 2022-07-19 08:22 | XMS_ITS | Encounter Summary ---
:1940 Author Organization [place] Address [address] [place] [address] Care Team Providers Name Role Phone Slava Hernandez PA-C Primary Care Provider Reason for Referral CV Testing (Routine) - Closed Specialty Diagnoses / Procedures Referred By Contact Refer red To Contact Diagnoses Cardiac pacemaker in situ [facility] Cv Cardiac Services Procedures Cardiac Device Check - In Clinic [address] [facility] [address] [place] [phone] Referral ID Status Reason Start Date Expiration Date Visits Requ ested Visits Authorized [id number] Closed 06/25/2019 06/24/2020 1 1 Encounter Details Date Type Department Care Team Description 06/25/2019 [facility] Sary Riojas Cardi ac pacemaker in [facility] situ (Ira jing Dx) Heart Care [address] [facility] [address] [place] [phone] Social History [...] Ancillary Procedure Cardiology Timothy Smith MD [address] [facility] [address] [place] [phone] (Wo rk) 08/16/2022 Office Visit Cardiology Timothy Smith MD [address] [place] [address] (Wo rk) documented as of this encounter Results PM DEVICE PROGRAMMING EVAL, DUAL LEAD PACER (10/15/2019 9:24 AM INVENTORY ASSISTANT) Component Value Ref Test Analysis Performed Pathologis t Range Method Time At Signature Date Time [id number] MEDTRONIC Interrogation Session Implantable [place] [employer] MED[employer]ONIC Pulse Generator Travel Rn Or Implantable L121 ESS[address] EL MEDTRONIC Pulse Generator Model Implantable 180804 MEDTRONIC Pulse Generator Serial Number Type In Clinic MEDTRONIC Interrogation Session Clinic Name [facility] MEDTRONIC Implantable Pacemaker MEDTRONIC Pulse Generator Type Implantable [id number] MEDTRONIC Pulse Generator Implant Date Implantable Lead [facility]O RAUL Travel Rn Or Implantable Lead 2088TC Tendril MEDTRONI C Model STS Implantable Lead [id number] MEDTRONIC Serial Number Implantable Lead 20160204 MEDTRONIC Implant Date Implantable Lead Bipolar Lead MEDTRONIC Polarity Type Implantable Lead UNKNOWN MEDTRONIC Location Detail 1 Implantable Lead Right Atrium [facility]IC Location Implantable Lead [facility] RAUL Travel Rn Or Implantable Lead 2088TC Tendril MEDTRONI C Model STS Implantable Lead [id number] MEDTRONIC Serial Number Implantable Lead [id number] MEDTRONIC [...] NSVT MEDTRONIC Statistic Vendor Type Category Episode [id number] MEDTRONIC Statistic Total Date Time End Episode 97 MEDTRONIC Statistic Recent Count Episode VT MEDTRONIC Statistic Type Category Episode NSVT MEDTRONIC Statistic Vendor Type Category Episode [id number] MEDTRONIC Statistic Recent Date Time Start Episode [id number] MEDTRONIC Statistic Recent Date Time End Anatomical Region Laterality Modality Other Specimen (Source) Anatomical Collection Method Collection Time Re ceived Time Location / / Volume Laterality 10/15/2019 3:46 PM INVENTORY ASSISTANT Narrative 10/16/2019 10:41 AM INVENTORY ASSISTANT [place] [employer] Accolade (D) Pacemaker Device Check AP: <1 ?% ?? HEEL BRUSHER: 61 % ?? Mode: VVIR 60-130 (was [...] situ documented in this encounter Care Teams Cut Off Machine Helper Relationship Specialty Start Date End Date Slava Hernandez PA-C PCP - General Physician Wheel Blocker 07/02/18 06/29/[address] [address] documented as of this encounter
--- OUTSIDE RECORDS SUMMARY | 2022-07-19 08:22 | XMS_ITS | Encounter Summary ---
:1940 Author Organization [place] Address [address] [facility] [place] [address] Care Team Providers Name Role Phone Slava Hernandez PA-C Primary Care Provider Encounter Details Date Type Department Care Team Description 01/23/2019 Documentation Only [facility] Patt Montoya APRN VISOR INSTALLER [address] [facility] [address] [facility] [address] [place] [address] [place] [address] [phone] Social History Tobacco Use Types Packs/Day Years [...] MD [address] [place] [address] (Wo rk) 08/16/2022 Office Visit Cardiology Timothy Smith MD [address] [place] [address] (Wo rk) documented as of this encounter Visit Diagnoses Not on filedocumented in this encounter Care Teams Singer And Unloader Relationship Specialty Start Date End Date Slava Hernandez PA-C PCP - General Physician Slip Cover Sewer 07/02/18 06/29/21 [facility] [address] [place] [address] documented as of this encounter
--- OUTSIDE RECORDS SUMMARY | 2022-07-19 08:22 | XMS_ITS | Encounter Summary ---
:1940 Author Organization [place] Address [address] [place] [address] Care Team Providers Name Role Phone Slava Hernandez PA-C Primary Care Provider Reason for Referral CV Testing (Routine) - Closed Specialty Diagnoses / Procedures Referred By Contact Refer red To Contact Diagnoses Cardiac pacemaker in situ Basil Guadalupe MD Procedures Cardiac Device Check - Remote [address] [facility] [address] [place] [address] Referral ID Status Reason Start Date Expiration Date Visits Requ ested Visits Authorized [id number] Closed 10/15/2019 10/14/2020 1 1 M TURBINE ASSEMBLER Reason for Visit CV Testing (Routine) - Closed Specialty Diagnoses / Procedures Referred By Contact Refer red To Contact Diagnoses Cardiac pacemaker in situ [facility] Cv Cardiac Services Procedures Cardiac Device Check - In Clinic [address] [facility] [address] [place] [address] Referral ID Status Reason Start Date Expiration Date Visits Requ ested Visits Authorized [id number] Closed 06/25/2019 06/24/2020 1 1 Encounter Details Date Type Department Care Team Description 10/15/2019 Ancillary Procedure [facility] Timothy Smith MD Cardiac pacemaker in Heart Clinic [address] situ [facility] [address] [address] [place], [place] [address] [address] [place], [place] (Work) [phone] Social History Tobacco Use Types Packs/Day Years [...] [address] [place] [address] (Wo rk) 08/16/2022 Office Visit Cardiology Timothy Smith MD [address] [place] [phone] (Wo rk) documented as of this encounter Procedures Procedure Name Priority Date/Time Associated Comments Diagnosis PM DEVICE PROGRAMMING Routine 10/15/2019 9:24 AM Cardiac pacem vane Results for this EVAL, DUAL LEAD PACER STEAM TURBINE ASSEMBLER in situ proced ure are in the results section. documented in this encounter Results INTERROGATION DEVICE EVAL REMOTE PACER UP TO 90 DAYS (01/27/2020 7:40 AM CDT) Component Value Ref Test Analysis Performed Pathologis t Range Method Time At Signature Date Time [id number] MEDTRONIC Interrogation Session Implantable [place] [employer] MEDTRONIC Pulse Generator Trim Setter Implantable L121 ESSENTIO EL MEDTRONIC Pulse Generator Model Implantable 750579 MEDTRONIC Pulse Generator Serial Number Type Remote MEDTRONIC Interrogation Session Clinic Name [facility] MEDTRONIC Implantable Pacemaker MEDTRONIC Pulse Generator Type Implantable [id number] MEDTRONIC Pulse Generator Implant Date Implantable Lead [facility] RAUL Trim Setter Implantable Lead 2087TC Tendril MEDTRONI C Model STS Implantable Lead [id number] MEDTRONIC Serial Number Implantable Lead 20160204 MEDTRONIC Implant Date Implantable Lead Bipolar Lead MEDTRONIC Polarity Type Implantable Lead UNKNOWN MEDTRONIC Location Detail 1 Implantable Lead Right Atrium [employer]IC Location Implantable Lead [facility] [employer] RAUL Trim Setter Implantable Lead 2087TC Tendril MEDTRONI C Model STS Implantable Lead [id number] MEDTRONIC Serial Number Implantable Lead 20160204 MEDTRONIC [...] 100 % MEDTRONIC Remaining Percentage Brandon Statistic [id number] MEDTRONIC Date Time Start Brandon Statistic [id number] MEDTRONIC Date Time End Brandon Statistic 0 [...] [place] MEDTRONIC Statistic Vendor Type Category Episode [id number] MEDTRONIC Statistic Recent Date Time Start Episode [id number] MEDTRONIC Statistic Recent Date Time End Episode [id number] MEDTRONIC Statistic Recent Date Time Start Episode [id number] MEDTRONIC Statistic Recent Date Time End Episode [id number] MEDTRONIC Statistic Recent Date Time Start Episode [id number] MEDTRONIC Statistic Recent Date Time End Episode [id number] MEDTRONIC Statistic Recent Date Time Start Episode [id number] MEDTRONIC Statistic Recent Date Time End Episode APM-94 MEDTRONIC Identifier Episode Type Periodic EGM MEDTRONIC Category Episode Date [id number] MEDTRONIC Time Episode [id number]-2805 MEDTRONIC Identifier Episode Type Other MEDTRONIC Category Episode Date [id number] MEDTRONIC Time Episode V-1550 MEDTRONIC Identifier Episode Type [place] MEDTRONIC Category Episode Date [id number] MEDTRONIC Time Episode Duration 16 s MEDTRONIC Episode V-1549 MEDTRONIC Identifier Episode Type [place] MEDTRONIC Category Episode Date [id number] MEDTRONIC Time Episode Duration 26 s MEDTRONIC Episode V-1548 MEDTRONIC Identifier Episode Type [place] MEDTRONIC Category Episode Date [id number] MEDTRONIC Time Episode Duration 28 s MEDTRONIC Episode V-1547 MEDTRONIC Identifier Episode Type [place] MEDTRONIC Category Episode Date [id number] MEDTRONIC Time Episode Duration 12 s MEDTRONIC Episode V-1546 MEDTRONIC Identifier Episode Type [place] MEDTRONIC Category Episode Date [id number] MEDTRONIC Time Episode Duration 14 s MEDTRONIC Episode V-1545 MEDTRONIC Identifier Episode Type [place] MEDTRONIC Category Episode Date [id number] MEDTRONIC Time Episode Duration 21 s MEDTRONIC Episode V-1544 MEDTRONIC Identifier Episode Type [place] MEDTRONIC Category Episode Date [id number] MEDTRONIC Time Episode Duration 14 s MEDTRONIC Episode V-1543 MEDTRONIC Identifier Episode Type [place] MEDTRONIC Category Episode Date [id number] MEDTRONIC Time Episode Duration 37 s MEDTRONIC Episode V-1542 MEDTRONIC Identifier Episode Type [place] MEDTRONIC Category Episode Date [id number] MEDTRONIC Time Episode Duration 14 s MEDTRONIC Episode V-1541 MEDTRONIC Identifier Episode Type [place] MEDTRONIC Category Episode Date [id number] MEDTRONIC Time Episode Duration 23 s MEDTRONIC Anatomical Region Laterality Modality Other Specimen (Source) Anatomical Collection Method Collection Time Re ceived Time Location / / Volume Laterality 01/27/2020 12:41 AM CDT Narrative 02/10/2020 3:26 PM CDT [employer] Essentio (S) Remote PPM Device Check ANESTHESIOLOGIST: 35%, Chronic AFib, taking Eliquis Mode: VVIR Presenting Rhythm: ANESTHESIOLOGIST Heart Rate: adequate heart rates per his [...] EVAL, DUAL LEAD PACER (10/15/2019 9:24 AM STEAM TURBINE ASSEMBLER) Component Value Ref Test Analysis Performed Pathologis t Range Method Time At Signature Date Time [id number] MEDTRONIC Interrogation Session Implantable [place] [employer] MED[employer]ONIC Pulse Generator Trim Setter Implantable L121 ESSENTIO EL MEDTRONIC Pulse Generator Model Implantable 697831 MEDTRONIC Pulse Generator Serial Number Type In Clinic MEDTRONIC Interrogation Session Clinic Name [facility] MEDTRONIC Implantable Pacemaker MEDTRONIC Pulse Generator Type Implantable [id number] MEDTRONIC Pulse Generator Implant Date Implantable Lead [facility] MED[facility]O RAUL Trim Setter Implantable Lead 2088TC Tendril MEDTRONI C Model STS Implantable Lead [id number] MEDTRONIC Serial Number Implantable Lead 20160204 MEDTRONIC Implant Date Implantable Lead Bipolar Lead MEDTRONIC Polarity Type Implantable Lead UNKNOWN MEDTRONIC Location Detail 1 Implantable Lead Right Atrium MEDTRONIC Location Implantable Lead [facility] MED[employer]O RAUL Trim Setter Implantable Lead 2088TC Tendril MEDTRONI C Model STS Implantable Lead [id number] MEDTRONIC Serial Number Implantable Lead [id number] MEDTRONIC Implant Date Implantable Lead Bipolar Lead [...] NSVT MEDTRONIC Statistic Vendor Type Category Episode [id number] MEDTRONIC Statistic Total Date Time End Episode 97 MEDTRONIC Statistic Recent Count Episode [place] MEDTRONIC Statistic Type Category Episode NSVT MEDTRONIC Statistic Vendor Type Category Episode [id number] MEDTRONIC Statistic Recent Date Time Start Episode [id number] MEDTRONIC Statistic Recent Date Time End Anatomical Region Laterality Modality Other Specimen (Source) Anatomical Collection Method Collection Time Re ceived Time Location / / Volume Laterality 10/15/2019 3:46 PM STEAM TURBINE ASSEMBLER Narrative 10/16/2019 10:41 AM STEAM TURBINE ASSEMBLER [employer] Accolade (D) Pacemaker Device Check AP: <1 ?% ?? ANESTHESIOLOGIST: 61 % ?? Mode: VVIR 60-130 (was [...] situ documented in this encounter Care Teams [place] Maori Relationship Specialty Start Date End Date Slava Hernandez PAIlanaC PCP - General Physician Perforator Loader 07/02/18 06/29/[address] [address] documented as of this encounter
--- OUTSIDE RECORDS SUMMARY | 2022-07-19 08:23 | XMS_ITS | Encounter Summary ---
:1940 Author Organization [place] Address [address] [place] [address] Care Team Providers Name Role Phone Slava Hernandez PA-C Primary Care Provider Reason for Visit CV Testing - Closed Specialty Diagnoses / Procedures Referred By Contact Refer red To Contact Diagnoses Pacemaker Basil Guadalupe MD Procedures Cardiac Device Check - Remote [address] [place] [address] Referral ID Status Reason Start Date Expiration Date Visits Requ ested Visits Authorized [id number] Closed 11/14/2018 11/14/2019 1 1 Encounter Details Date Type Department Care Team Description 11/14/2018 Ancillary Procedure [facility] [address] [facility] [address] [facility] [address] [place] [address] [place] [address] [phone] Social History Tobacco Use Types Packs/Day Years [...] [address] [place] [address] (Wo rk) 08/16/2022 Office Visit Cardiology Timothy Smith MD [address] [place] [address] (Wo rk) documented as of this encounter Procedures Procedure Name Priority Date/Time Associated Diagnosis Comme nts COURTESY DEVICE Routine 11/14/2018 11:19 AM Pacemaker Resul ts for this CHECK CUTTER OUT procedure are i n the results section. documented in this encounter Results COURTESY DEVICE CHECK (11/14/2018 11:19 AM CUTTER OUT) Component Value Ref Test Analysis Performed Pathologis t Range Method Time At Signature Date Time [id number] MEDTRONIC Interrogation Session Implantable [employer] MEDTRONIC Pulse Generator Senior Software Systems Engineer Implantable L121 ESSENTIO EL MEDTRONIC Pulse Generator Model Implantable [id number] MEDTRONIC Pulse Generator Serial Number Type Remote MEDTRONIC Interrogation Session Clinic Name [facility] [employer]ONIC Implantable Pacemaker MEDTRONIC Pulse Generator Type Implantable [id number] MEDTRONIC Pulse Generator Implant Date Implantable Lead [facility] MEDTRO RAUL Senior Software Systems Engineer Implantable Lead 2088TC Tendril MEDTRONI C Model STS Implantable Lead [id number] MEDTRONIC Serial Number Implantable Lead [id number] MEDTRONIC Implant Date Implantable Lead Bipolar Lead MEDTRONIC Polarity Type Implantable Lead UNKNOWN MEDTRONIC Location Detail 1 Implantable Lead Right Atrium MEDTRONIC Location Implantable Lead [facility] [employer] RAUL Senior Software Systems Engineer Implantable Lead 2088TC Tendril MEDTRONI C Model STS Implantable Lead [id number] [employer]TRONIC Serial Number Implantable Lead [id number] MEDTRONIC Implant Date Implantable Lead Bipolar Lead [...] MEDTRONIC Pacing Threshold Pulse Width Battery Date [id number] MEDTRONIC Time of Measurements Battery Status Beginning of MEDTRONIC Service Battery 108 mo MEDTRONIC Remaining Longevity Battery 100 % MEDTRONIC Remaining Percentage Brandon Statistic [id number] MEDTRONIC Date Time Start Brandon Statistic [id number] MEDTRONIC Date Time End Brandon Statistic 0 % MEDTRONIC RA Percent Paced Brandon Statistic 48 % MEDTRONIC RV Percent Paced Atrial Tachy [id number] MEDTRONIC Statistic Date Time Start Atrial Tachy 45287429468521 MEDTRONIC Statistic Date Time End Atrial Tachy 80 % MEDTRONIC Statistic AT/AF [place] Percent Episode 497 MEDTRONIC Statistic Recent Count [...] [place] MEDTRONIC Statistic Vendor Type Category Episode [id number] MEDTRONIC Statistic Recent Date Time Start Episode [id number] MEDTRONIC Statistic Recent Date Time End Episode [id number] MEDTRONIC Statistic Recent Date Time Start Episode [id number] MEDTRONIC Statistic Recent Date Time End Episode [id number] MEDTRONIC Statistic Recent Date Time Start Episode [id number] MEDTRONIC Statistic Recent Date Time End Episode [id number] MEDTRONIC Statistic Recent Date Time Start Episode [id number] MEDTRONIC Statistic Recent Date Time End Episode [id number] MEDTRONIC Identifier Episode Type Other MEDTRONIC Category Episode Date [id number] MEDTRONIC Time Episode V-1438 MEDTRONIC Identifier Episode Type [place] MEDTRONIC Category Episode Date [id number] MEDTRONIC Time Episode Duration 14 s MEDTRONIC Episode V-1437 MEDTRONIC Identifier Episode Type [place] MEDTRONIC Category Episode Date [id number] MEDTRONIC Time Episode Duration 12 s MEDTRONIC Episode V-1436 MEDTRONIC Identifier Episode Type [place] MEDTRONIC Category Episode Date [id number] MEDTRONIC Time Episode Duration 12 s MEDTRONIC Episode V-1435 MEDTRONIC Identifier Episode Type [place] MEDTRONIC Category Episode Date [id number] MEDTRONIC Time Episode Duration 12 s MEDTRONIC Episode V-1434 MEDTRONIC Identifier Episode Type SVT MEDTRONIC Category Episode Vendor SVT MEDTRONIC Type Category Episode Date [id number] MEDTRONIC Time Episode Duration 74 s MEDTRONIC Episode V-1433 MEDTRONIC Identifier Episode Type [place] MEDTRONIC Category Episode Date [id number] MEDTRONIC Time Episode Duration 13 s MEDTRONIC Episode V-1432 MEDTRONIC Identifier Episode Type [place] MEDTRONIC Category Episode Date [id number] MEDTRONIC Time Episode Duration 18 s MEDTRONIC Episode V-1431 MEDTRONIC Identifier Episode Type [place] MEDTRONIC Category Episode Date [id number] MEDTRONIC Time Episode Duration 11 s MEDTRONIC Episode V-1430 MEDTRONIC Identifier Episode Type [place] MEDTRONIC Category Episode Date [id number] MEDTRONIC Time Episode Duration 12 s MEDTRONIC Episode ATR-[id number] MEDTRONIC Identifier Episode Type AT/AF MEDTRONIC Category Episode Date [id number] MEDTRONIC Time Episode V-1429 MEDTRONIC Identifier Episode Type [place] MEDTRONIC Category Episode Date [id number] MEDTRONIC Time Episode Duration 12 s MEDTRONIC Episode V-1428 MEDTRONIC Identifier Episode Type [place] MEDTRONIC Category Episode Date [id number] MEDTRONIC Time Episode Duration 12 s MEDTRONIC Episode APM-87 MEDTRONIC Identifier Episode Type Periodic EGM MEDTRONIC Category Episode Date [id number] MEDTRONIC Time Anatomical Region Laterality Modality Other Specimen (Source) Anatomical Collection Method Collection Time Re ceived Time Location / / Volume Laterality 11/14/2018 4:55 PM CUTTER OUT Narrative 11/20/2018 2:33 PM CUTTER OUT courtesy check: Pt calling to report CHF symptoms of fatiuge, weakness, decreased exercise intolerance, and ??pa lpitations. His PCP doubled his diuretic and wanted him to be seen by Dr Smith. He cannot see Dr Smith for awhile so will see Saadia Aguirrey instead on 11/15/18. He sent a remote PPM transmission that showed afib with contr olled vent rate. He had 20 episodes of afib with RVR since 05/18 but none since 10/17/18. Basil Guadalupe MD CV CARDIAC SERVICES ORDERABL ES documented in this encounter Visit Diagnoses Diagnosis Pacemaker Cardiac pacemaker in situ documented in this encounter Care Teams Hired Help Relationship Specialty Start Date End Date Slava Hernandez, JOSÉ MIGUELC PCP - General Physician Install Technician 07/02/18 06/29/21 [place] [id number] documented as of this encounter
--- OUTSIDE RECORDS SUMMARY | 2022-07-19 08:23 | XMS_ITS | Encounter Summary ---
:1940 Author Organization [place] Address [address] [facility] [place] [address] Care Team Providers Name Role Phone Slava Hernandez PA-C Primary Care Provider Encounter Details Date Type Department Care Team Description 11/14/2018 Telephone [facility] Robert Norris, SIENNA, [facility] RN [address] [facility] [address] [facility] [address] [place] [address] [place] [address] [phone] (Wo rk) Social History Tobacco Use Types Packs/Day Years Used Date Smoking Tobacco: Never Smokeless Tobacco: Never Alcohol Use Standard Drinks/Week Comments No 0 (1 standard drink = 0.6 oz pure alcoho l) Sex Assigned at Date Recorded Not on file documented as of this encounter Miscellaneous Notes Telephone Encounter - Mary Norris, RN, RN - 11/14/2018 11:02 AM ASSOCIATE CHIEF NURSE Pt calling to report CHF symptoms of fatiuge, weakness, decreased exercise intolerance, and palpitations. His PCP doubled his diuretic and wanted him to be seen by Dr mSith. He cannot see Dr Smith for awhileso will see Saadia Montenegro instead on 11/15/18. He sent a remote PPM transmission that showed afib with controlled vent rate. He had 20 episodes of afib with RVR since 05/18 but none since 10/17/18. CIATE CHIEF NURSE documented in this encounter Plan of Treatment Upcoming Encounters Date Type Specialty Care Team Description 08/16/2022 Ancillary Procedure Cardiology Timothy Smith MD [address] [place] [address] (Wo rk) 08/16/2022 Office Visit Cardiology Timothy Smith MD [address] [place] [address] (Wo rk) documented as of this encounter Visit Diagnoses Not on filedocumented in this encounter Care Teams Social Science Instructor Relationship Specialty Start Date End Date Slava Hernandez PAIlanaC PCP - General Physician Sweat Band Separator 07/02/18 06/29/21 [facility] [id number] [place] [address] documented as of this encounter
--- OUTSIDE RECORDS SUMMARY | 2022-07-19 08:23 | XMS_ITS | Encounter Summary ---
:1940 Author Organization [place] Address [address] [place] [address] Care Team Providers Name Role Phone Slava Hernandez PA-C Primary Care Provider Encounter Details Date Type Department Care Team Description 12/12/2018 [facility] Heart [facility] emic cardiomyopathy Clinic [address] [place] [address] Social History Tobacco Use [...] [address] [place] [phone] (Wo rk) 08/16/2022 Office Visit Cardiology Timothy Smith MD [address] [place] [id number] (Wo rk) documented as of this encounter Procedures Procedure Name Priority Date/Time Associated Diagnosis Comme nts BASIC METABOLIC Routine 12/12/2018 9:12 AM Ischemic cardiomyop athy Results for this PANEL CDT procedure are i n the results section. documented in this encounter Results (ABNORMAL) Basic metabolic panel (12/12/2018 9:12 AM CDT) Analysis Performed At Patho logist Time Signature Sodium 143 133 - 144 12/12/2018 [place] mmol/L 9:51 AM [facility] Potassium 4.2 3.4 - 5.3 12/12/2018 [place] mmol/L 9:51 AM [facility] Chloride 106 94 - 109 12/12/2018 [place] mmol/L 9:51 AM [facility] Carbon Dioxide 31 20 - 32 12/12/2018 [place] mmol/L 9:56 AM [facility] Anion Gap 6 3 - 14 12/12/2018 [place] mmol/L 9:56 AM [facility] Glucose 101 (H) 70 - 99 12/12/2018 [place] mg/dL 9:56 AM [facility] Urea Nitrogen 55 (H) 7 - 30 12/12/2018 [place] mg/dL 9:56 AM [facility] Creatinine 2.20 (H) 0.66 - 12/12/2018 [place] 1.25 mg/dL 9:56 AM [facility] GFR Estimate 27 (L) >60 12/12/2018 [place] mL/min/{1. 9:56 AM [facility] 73_m2} HOSPITAL Comment: Non GFR Calc Starting 09/17/2018, serum creatinine ba sed estimated GFR (eGFR) will be calculated using the Chronic Kidney Dise [facility] Epidemiology Collaboration (CKD-EPI) equation. GFR Estimate If 32 (L) >60 mL/min/{1.73_m2} 12/12/2018 9: 56 AM [facility] Comment: GFR Calc Starting 09/17/2018, serum creatinine ba sed estimated GFR (eGFR) will be calculated using the Chronic Kidney Dise [facility] Epidemiology Collaboration (CKD-EPI) equation. Calcium 8.8 8.5 - 10.1 mg/dL 12/12/2018 9:56 AM [facility] Specimen Anatomical Collection Method Collection Time Receive d Time (Source) Location / / Volume Laterality Blood specimen 12/12/2018 9:12 AM 019 9:14 (specimen) CDT AM CDT Elda Johnson APRN DISH STACKER LAB - BLOOD ORDERABL ES Performing Organization Address City/State/ZIP Code Phon e Number M [facility] [address] [place], [place] [address] [facility] [address] [phone] documented in this encounter Visit Diagnoses Diagnosis Ischemic cardiomyopathy Other specified forms of chronic ischemi c heart disease documented in this encounter Care Teams Training Specialist Relationship Specialty Start Date End Date Slava Hernandez PA-C PCP - General Physician Incubator Operator 07/02/18 06/29/21 [facility] [address] [place] [address] documented as of this encounter
--- OUTSIDE RECORDS SUMMARY | 2022-07-19 08:23 | XMS_ITS | Encounter Summary ---
:1940 Author Organization [place] Address [facility] [place] [address] Care Team Providers Name Role Phone Slava [...] MD [address] [place] [address] (Wo rk) 08/16/2022 Office Visit Cardiology Timothy Smith MD [address] [place] [address] (Wo rk) documented as of this encounter Visit Diagnoses Not on filedocumented in this encounter Care Teams Last Trimmer Relationship Specialty Start Date End Date Slava Hernandez PA-C PCP - General Physician Manager Pulmonary 07/02/18 06/29/21 [facility] [address] [place] [address] documented as of this encounter
--- OUTSIDE RECORDS SUMMARY | 2022-07-19 08:23 | XMS_ITS | Encounter Summary ---
:1940 Author Organization [place] Address [address] [facility] [address] Care Team Providers Name Role Phone Slava Hernandez PA-C Primary Care Provider Reason for Referral - Closed Specialty Diagnoses / Procedures Referred By Contact Refer red To Contact Diagnoses Paroxysmal atrial fibrillation (H) Cardiomyopathy, unspecified type (H) Ischemic cardiomyopathy Tammy Montenegro PA-C [address] [place] [address] Referral ID Status Reason Start Date Expiration Date Visits Requ ested Visits Authorized [id number] Closed 11/15/2018 11/15/2019 1 1 FIELD EQUIPMENT MECHANIC SUPERVISOR CV Testing (Routine) - Closed Specialty Diagnoses / Procedures Referred By Contact Refer red To Contact Cardiology Diagnoses Paroxysmal atrial fibrillation (H) Cardiomyopathy, unspecified type (H) Ischemic cardiomyopathy Tammy Montenegro Cv Cardiac Svc Rscc Procedures Echocardiogram Complete HC TTE W/DOPPLER, COMPLETE HC ECHO COMPLETE W DOPPLER W CONTRAST HC ECHO COMPLETE W DOPPLER W/O CONTRAST HC IV PUSH SINGLE, INITIAL SUBSTANCE HC US GUIDE FOR PERICARDIOCENTESIS HC ECHO MYOCARD BX MARIBEL Torres [address] BackTrack C INJECTION, PERFLUTREN LIPI D MICROSPHERES, PER ML HC STATISTIC IV PUSH SINGLE INITIAL SUBSTANCE [address] [place] [address] [place] [address] Phone: Fax: Referral ID Status Reason Start Date Expiration Date Visits Requ ested Visits Authorized [id number] Closed 11/15/2018 11/15/2019 1 1 FIELD EQUIPMENT MECHANIC SUPERVISOR Reason for Visit Reason Comments Edema Fatigue Encounter Details Date Type Department Care Team Description 11/15/2018 Office Visit [facility] Tammy Montenegro Cardio myopathy, unspecified type (H) (Primary Dx); [facility] Clinic [place]pi Torres PA-C Paroxysmal atrial fibrillation (H); [address] [facility] [address] [facility] [address] SSS (sick sinus syndrome) (H); [facility] [address] Ischemic cardiomyopathy; [place] [address] [place] [address] 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 [phone] (Wo rk) Social History Tobacco Use Types Packs/Day Years Used Date Smoking Tobacco: Never Smokeless Tobacco: Never Alcohol Use Standard Drinks/Week Comments No 0 (1 standard drink = 0.6 oz pure alcoho l) Sex Assigned at Date Recorded Not on file documented as of this encounter Last Filed Vital Signs Vital Sign Reading Time Taken Comments Blood Pressure 123/70 11/15/2018 1:00 PM OIL FIELD EQUIPMENT MECHANIC SUPERVISOR Pulse 80 11/15/2018 1:00 PM OIL FIELD EQUIPMENT MECHANIC SUPERVISOR Temperature - - Respiratory Rate - - Oxygen Saturation - - Inhaled Oxygen Concentration - - Weight 142.9 kg (315 lb) 11/15/2018 1:00 PM OIL FIELD EQUIPMENT MECHANIC SUPERVISOR Height 180.3 cm (5' 11) 11/15/2018 1:00 PM OIL FIELD EQUIPMENT MECHANIC SUPERVISOR Body Mass Index 43.93 11/15/2018 1:00 PM OIL FIELD EQUIPMENT MECHANIC SUPERVISOR documented in this encounter Patient Instructions Patient InstructionsTammy Montenegro PA-C - 11/15/2018 1:10 PM OIL FIELD EQUIPMENT MECHANIC SUPERVISOR 1. Reviewed increased swelling and shortness of [...] with rest. 4. My nurses are Lacy/Pat: [phone] FIELD EQUIPMENT MECHANIC SUPERVISOR documented in this encounter Progress Notes Tammy Montenegro PA-C - 11/15/2018 1:10 PM CST HPI: [...] 4. Sinus node dysfunction status post dual-chamber [employer] [place] [employer] pacemaker 01/2016. He did not ever [...] EKG today, which I overread, showed intermittent PERSONNEL DIRECTOR @ 76 bpm with 2 PVCs of [...] discomfort that not improved with nitroglycerin Saadia Montenegro PA-C, MSPAS Orders Placed This Encounter Procedures [...] Ischemic cardiomyopathy ??? 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 Parent/sibling w/ CABG, [place] or angioplasty before 65F 55M? No ??? [...] GFRESTBLACK 58 (L) 07/04/2018 [place] 9.3 07/04/2018 FIELD EQUIPMENT MECHANIC SUPERVISOR documented in this encounter Plan of Treatment Upcoming Encounters Date Type Specialty Care Team Description 08/16/2022 Ancillary Procedure Cardiology Timothy Smith MD [address] [place] [phone] (Wo wade) 08/16/2022 Office Visit Cardiology Timothy Smith MD [address] [place] [phone] (Fiorella olvera) Scheduled Referrals Name Type Priority [...] Resu lts for this COMPLETE W/READ - OIL FIELD EQUIPMENT MECHANIC SUPERVISOR fibrillation (H) proced ure are in CLINICS the results section. documented in this encounter Results ECHO COMPLETE (11/18/2018 11:17 AM OIL FIELD EQUIPMENT MECHANIC SUPERVISOR) Anatomical Region Laterality Modality Echocardiography Specimen (Source) Anatomical Collection Method Collection Time Re ceived Time Location / / Volume Laterality 11/18/2018 10:35 AM OIL FIELD EQUIPMENT MECHANIC SUPERVISOR Narrative 11/19/2018 3:59 PM [facility] [id number]^BELEN^TAMMY^JUSTEN [facility] Echocardiography Laboratory [address] [place] [address] Name: RADHA VILLA : 1940 Study Date: 11/18/2018 10:35 AM Age: 78 yrs Gender: Male Patient Location: [facility] Reason For Study: Paroxysmal atrial fibr illation (H), Cardiomyopathy, unspecified Ordering Physician: TAMMY MONTENEGRO Referring Physician: TAMMY MONTENEGRO Performed By: Radha Mcgrath BSA: 2.6 m2 [...] note might be different from the original. [id number]^BELEN^TAMMY^[facility] Echocardiography Laboratory [address] [place] [address] Name: RADHA VILLA : 1940 Study Date: 11/18/2018 10:35 AM Age: 78 yrs Gender: Male Patient Location: [facility] Reason For Study: Paroxysmal atrial fibr illation (H), Cardiomyopathy, unspecified Ordering Physician: TAMMY MONTENEGRO Referring Physician: TAMMY MONTENEGRO Performed By: Radha Mcgrath BSA: 2.6 m2 [...] by: Pop Bloom 11/19/2018 03:59 PM Tammy Montenegro PA-C CV ECHO ORDERABLES (ABNORMAL) Basic metabolic panel (11/18/2018 10:02 AM [facility]) Analysis Performed At Patho logist Time Signature Sodium 144 133 - 144 11/18/2018 [facility] mmol/L 10:39 AM [facility] Potassium 3.8 3.4 - 5.3 11/18/2018 [facility] mmol/L 10:39 AM [facility] Chloride 105 94 - 109 11/18/2018 [facility] mmol/L 10:39 AM [facility] Carbon Dioxide 33 (H) 20 - 32 11/18/2018 [facility] mmol/L 10:46 AM [facility] Anion Gap 6 3 - 14 11/18/2018 [facility] mmol/L 10:46 AM [facility] Glucose 146 (H) 70 - 99 11/18/2018 [facility] mg/dL 10:46 AM [facility] Urea Nitrogen 30 7 - 30 11/18/2018 [facility] mg/dL 10:46 AM [facility] Creatinine 1.35 (H) 0.66 - 11/18/2018 [facility] 1.25 mg/dL 10:46 AM [facility] GFR Estimate 49 (L) >60 11/18/2018 [facility] mL/min/{1. 10:46 AM [facility] 73_m2} HOSPITAL Comment: Non GFR Calc Starting 09/17/2018, serum creatinine ba sed estimated GFR (eGFR) will be calculated using the Chronic Kidney Dise [facility] Epidemiology Collaboration (CKD-EPI) equation. GFR Estimate If 57 (L) >60 mL/min/{1.73_m2} 11/18/2018 10:46 AM [facility] Comment: GFR Calc Starting 09/17/2018, serum creatinine ba sed estimated GFR (eGFR) will be calculated using the Chronic Kidney Dise [facility] Epidemiology Collaboration (CKD-EPI) equation. Calcium 9.2 8.5 - 10.1 mg/dL 11/18/2018 10:46 AM [facility] Specimen Anatomical Collection Method Collection Time Receive d Time (Source) Location / / Volume Laterality Blood specimen 11/18/2018 10:02 9 (specimen) AM OIL FIELD EQUIPMENT MECHANIC SUPERVISOR 10:07 AM [facility] Tammy Montenegro PA-C LAB - BLOOD ORDERABLES Performing Organization Address City/State/ZIP Code Phon e Number M [facility] [address] [place], [place] [address] [facility] [address] [place], [place] [address] [facility] [phone] EKG 12-lead complete w/read - Clinics (performed today) (11/15/2018 4:45 PM OIL FIELD EQUIPMENT MECHANIC SUPERVISOR) Narrative This result has an attachment that is no t available. 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
--- OUTSIDE RECORDS SUMMARY | 2022-07-19 08:23 | XMS_ITS | Encounter Summary ---
:1940 Author Organization [place] Address [address] [place] [address] Care Team Providers Name Role Phone Slava Hernandez PA-C Primary Care Provider Reason for Referral Diagnostic Imaging XR - Closed Specialty Diagnoses / Procedures Referred By Contact Refer red To Contact Radiology. 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 [place] [address] [place] [address] [place] [address] [place], [place] [phone] (Work) [phone] Social History Tobacco Use Types Packs/Day Years Used Date Smoking Tobacco: Never Smokeless Tobacco: Never Alcohol Use Standard Drinks/Week Comments No 0 (1 standard drink = 0.6 oz pure alcoho l) Sex Assigned at Date Recorded Not on file documented as of this encounter Last Filed Vital Signs Vital Sign Reading Time Taken Comments Blood Pressure - - Pulse 82 10/23/2018 1:26 PM FIELD SALES SPECIALIST Temperature - - Respiratory Rate - - Oxygen Saturation 92% 10/23/2018 1:26 PM FIELD SALES SPECIALIST Inhaled Oxygen Concentration - - Weight 133.8 kg (295 lb) 10/23/2018 1:26 PM FIELD SALES SPECIALIST Height 180.3 cm (5' 11) 10/23/2018 1:26 PM FIELD SALES SPECIALIST Body Mass Index 41.14 10/23/2018 1:26 PM FIELD SALES SPECIALIST documented in this encounter Patient Instructions Patient InstructionsShea Rivera PA-C - 10/23/2018 1:30 PM CST Standard [...] laxatives. -Additional/different recommendations pending any stone analysis. D SALES SPECIALIST documented in this encounter Progress Notes Shea [...] any questions or concerns. Shea Rivera PA-C [facility] 30 minutes were spent with the patient today, > 50% in counseling and coordination of care of kidney stone. D SALES SPECIALIST Shea Rivera PA-C - 10/23/2018 1:30 PM CST [address] [place] D SALES SPECIALIST documented in this encounter Nursing Notes Delores Wilburn CMA - 10/23/2018 1:30 PM CST Pt here for stone Follow-up. Pt has had dark urine. Pt sometimes had flank pain. Pt passed 2 stones in Trae Duenas CMA D SALES SPECIALIST documented in this encounter Plan of Treatment Upcoming Encounters Date Type Specialty Care Team Description 08/16/2022 Ancillary Procedure Cardiology Timothy Smith MD [address] [place] [id number] (Fiorella olvera) 08/16/2022 Office Visit Cardiology Timothy Smith MD [address] [place] [phone] (Fiorella olvera) documented as of this encounter Procedures Procedure Name Priority Date/Time Associated Comments Diagnosis URINE MACROSCOPIC Routine 10/23/2018 1:33 PM Calculus of kidne y Results for this ONLY FIELD SALES SPECIALIST procedure are i n the results section. documented in this encounter Results XR KUB [[id number]] (10/23/2018 2:27 PM FIELD SALES SPECIALIST) Anatomical Region Laterality Modality Abdomen/Pelvis Digital Radiography Specimen (Source) Anatomical Location Collection Method / Collectio n Time Received Time / Laterality Volume Impressions 10/23/2018 2:44 PM FIELD SALES SPECIALIST IMPRESSION: No specific evidence of the previously seen distal ureteral stone. JEFFREY PA MD Narrative 10/23/2018 2:44 PM FIELD SALES SPECIALIST XR KUB 10/23/2018 2:27 PM HISTORY: Left [...] IMAGING ORDER ANN (ABNORMAL) UA without Microscopic [[id number]] (10/23/2018 1:33 PM [facility]) [facility] Method Time Signature Color Urine Yellow 10/23/2018 [place] 1:36 PM [facility] Appearance Urine Clear 10/23/2018 [place] 1:36 PM FIELD SALES SPECIALIST [facility] Glucose Urine Negative NEG^Negat 10/23/2018 [place] mike mg/dL 1:36 PM FIELD SALES SPECIALIST [facility] Bilirubin Urine Negative NEG^Negat 10/23/2018 [place] mike 1:36 PM [facility] Ketones Urine Trace (A) NEG^Negat 10/23/2018 [place] mike mg/dL 1:36 PM [facility] Specific [place] >1.030 1.003 - 10/23/2018 [place] Urine 1.035 1:36 PM [facility] Blood Urine Negative NEG^Negat 10/23/2018 [place] mike 1:36 PM [facility] pH Urine 6.0 5.0 - 7.0 10/23/2018 [place] pH 1:36 PM [facility] Protein Albumin 100 (A) NEG^Negat 10/23/2018 [place] Urine mike mg/dL 1:36 PM FIELD SALES SPECIALIST [facility] Urobilinogen 1.0 0.2 - 1.0 10/23/2018 [place] Urine EU/dL 1:36 PM FIELD SALES SPECIALIST [facility] Nitrite Urine Negative NEG^Negat 10/23/2018 [place] mike 1:36 PM FIELD SALES SPECIALIST [facility] Leukocyte Negative NEG^Negat 10/23/2018 [place] Esterase Urine mike 1:36 PM FIELD SALES SPECIALIST [facility] Source Midstream 10/23/2018 [place] Urine 1:35 PM FIELD SALES SPECIALIST [facility] Specimen (Source) Anatomical Collection Method Collection Time Re ceived Time Location / / Volume Laterality Examination of 10/23/2018 1:33 10/23/2018 1:34 midstream urine PM FIELD SALES SPECIALIST PM FIELD SALES SPECIALIST specimen (procedure) Shea Rivera PA-C LAB - URINE ORDERABLES Performing Organization Address City/State/ZIP Code Phon e Number [facility] [address] [place] [phone] [facility] [address] documented in this encounter Visit Diagnoses Diagnosis Calculus of kidney - Primary 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
--- OUTSIDE RECORDS SUMMARY | 2022-07-19 08:23 | XMS_ITS | Encounter Summary ---
:1940 Author Organization [place] Address [address] [place] [address] Care Team Providers Name Role Phone Slava Hernandez PA-C Primary Care Provider Encounter Details Date Type Department Care Team Description 11/18/2018 Documentation Only [facility] Tammy Monten[facility] [place] Torres PA-C [address] [facility] [address] [facility] [address] [place] [phone] [place] [id number] (Wo rk) Social History Tobacco Use Types [...] but reschedule to if it's snowing tomorrow. IPLE WIRE SAWYER Temitope Tamayo RN - 11/18/2018 1:41 PM CST Message left for patient to review lab work and recommendations per HANK Jacobo. Awaiting return call. SIENNA Okeefe IPLE WIRE SAWYER Temitope Tamayo RN - 11/18/2018 1:41 PM [...] to follow up next week. Patient requesting [place] location. Appointment scheduled for 11/27 with Elda Johnson. Instructed patient to call clinic if he had any questions or concerns. Patient provided verbal understanding of above. SIENNA Okeefe IPLE WIRE SAWYER documented in this encounter Plan of Treatment Upcoming Encounters Date Type Specialty Care Team Description 08/16/2022 Ancillary Procedure Cardiology Timothy Smith MD [address] [place] [phone] (Wo rk) 08/16/2022 Office Visit Cardiology Timothy Smith MD [address] [place] [id number] (Wo rk) documented as of this encounter Visit Diagnoses Not on filedocumented in this encounter Care Teams Cabana Attendant Relationship Specialty Start Date End Date Slava Hernandez PA-C PCP - General Physician Food Service Aide 07/02/18 06/29/21 [facility] [id number] [place] [address] documented as of this encounter
--- OUTSIDE RECORDS SUMMARY | 2022-07-19 08:23 | XMS_ITS | Encounter Summary ---
:1940 Author Organization [place] Address [address] [place] [address] Care Team Providers Name Role Phone Mary Slava Estrella PA-C Primary Care Provider Reason for Visit Reason Onset Date Comments Prior Auth - Medication 10/02/2018 apixaban ANTICOA GULANT (ELIQUIS) 5 MG tablet- Tier Exception Denied Encounter Details Date Type Department Care Team Description 10/02/2018 Telephone [facility] Timothy Smith MD Prior Auth - Medication [facility] [place] [address] (apixaban ANTICOAGULANT [address] (ELIQUIS) 5 MG tablet- [facility] [address] [place] [address] Tier Exception Denied) [place] [phone] Social History Tobacco Use Types Packs/Day Years [...] is requesting [facility] ref[facility]. Needing eliquis. Sent script to pharmacy. SIENNA Okeefe ERY SETTER OUT Telephone Encounter - Lacy Washington RN - 10/29/2018 10:19 AM CST Pt called as he needs a couple of weeks of samples of Eliquis to make it until his new insurance card arrives. Have placed 3 weeks for pt to shredder picker. Jing ERY SETTER OUT Telephone Encounter - Lacy Washington RN - 10/28/2018 7:32 AM CST Pt called and LM and stated that he has changed his insurance from [employer] to [employer] and will bring in his card when it arrives in the mail. Will then do a new PA if needed. Jing ERY SETTER OUT Telephone Encounter - Lacy Washington RN - 10/22/2018 4:24 PM CST LM for pt to call back to discuss the Eliquis tier exception denial. Jing ERY SETTER OUT Telephone Encounter - Catherine Aranda LPN - [...] PA-message to EP Team Dr Smith-yvette mena ERY SETTER OUT Telephone Encounter - Yareli Tamez - 10/07/2018 [...] necessity to our PA Team. Appeal Information: ERY SETTER OUT Telephone Encounter - Yareli Tamez - 10/03/2018 12:54 PM CST Images from the original note were not included. Central Prior Authorization Team Ter Exception Renewal Initiation Medication: apixaban ANTICOAGULANT (ELIQUIS) 5 MG tablet Insurance Company: [employer] - Pharmacy Filling the Rx: [facility] MAIL DELIVERY - [address] Filling Pharmacy Filling Pharmacy Fax: Start Date: 10/03/2018 ERY SETTER OUT Telephone Encounter - Kitty Sierra - 10/02/2018 10:12 AM CST TIER EXCEPTION RENEWAL Prior Authorization Retail Medication Request Medication/Dose: apixaban ANTICOAGULANT (ELIQUIS) 5 MG tablet ICD code (if different than what is on RX): Paroxysmal atrial fibrillation (H) [I48.0] Previously Tried and Failed: See chart Rationale: Needs renewal on Tier exception Patient called to start process Insurance Name: [employer] BIN: [id number] PCN: [id number] Pharmacy Information (if different than what is on RX) Name: [facility] MAIL DELIVERY ERY SETTER OUT documented in this encounter Plan of Treatment Upcoming Encounters Date Type Specialty Care Team Description 08/16/2022 Ancillary Procedure Cardiology Timothy Smith MD [address] [place] [phone] (Wo rk) 08/16/2022 Office Visit Cardiology Timothy Smith MD [address] [place] [address] (Wo rk) documented as of this encounter Visit Diagnoses Diagnosis Paroxysmal atrial fibrillation (H) Atrial fibrillation documented in this encounter Care Teams Waiter/Waitress Cocktail Lounge Relationship Specialty Start Date End Date Slava Hernandez PA-C PCP - General Physician Race Car Driver 07/02/18 06/29/21 [facility] [address] [place] [address] documented as of this encounter
--- OUTSIDE RECORDS SUMMARY | 2022-07-19 08:23 | XMS_ITS | Encounter Summary ---
:1940 Author Organization [place] Address [address] [facility] [place] [address] Care Team Providers Name Role Phone Slava Hernandez PA-C Primary Care Provider Encounter Details Date Type Department Care Team Description 11/25/2018 [facility] Heart ACS (acute coronary Clinic [place] syndrome) (H) [address] [facility] [address] [place], [place] [phone] Social History Tobacco Use Types Packs/Day [...] [address] [place] [id number] (Wo rk) 08/16/2022 Office Visit Cardiology Timothy Smith MD [address] [place] [id number] (Wo rk) documented as of this encounter Procedures Procedure Name Priority Date/Time Associated Diagnosis Comme nts BASIC METABOLIC Routine 11/25/2018 10:56 AM ACS (acute coronar y Results for this PANEL FRUIT INSPECTOR syndrome) (H) procedure are in the results section. documented in this encounter Results (ABNORMAL) Basic metabolic panel (11/25/2018 10:56 AM FRUIT INSPECTOR) Analysis Performed At Patho logist Time Signature Sodium 142 133 - 144 11/25/2018 [place] mmol/L 11:18 AM [facility] Potassium 4.3 3.4 - 5.3 11/25/2018 [place] mmol/L 11:18 AM [facility] Chloride 106 94 - 109 11/25/2018 [place] mmol/L 11:18 AM [facility] Carbon Dioxide 33 (H) 20 - 32 11/25/2018 [facility] mmol/L 11:24 AM [facility] Anion Gap 3 3 - 14 11/25/2018 [facility] mmol/L 11:24 AM [facility] Glucose 131 (H) 70 - 99 11/25/2018 [place] mg/dL 11:24 AM [facility] Urea Nitrogen 32 (H) 7 - 30 11/25/2018 [place] mg/dL 11:24 AM [facility] Creatinine 1.43 (H) 0.66 - 11/25/2018 [facility] 1.25 mg/dL 11:24 AM [facility] GFR Estimate 46 (L) >60 11/25/2018 [place] mL/min/{1. 11:24 AM [facility] 73_m2} HOSPITAL Comment: Non GFR Calc Starting 09/17/2018, serum creatinine ba sed estimated GFR (eGFR) will be calculated using the Chronic Kidney Dise [facility] Epidemiology Collaboration (CKD-EPI) equation. GFR Estimate If 53 (L) >60 mL/min/{1.73_m2} 11/25/2018 11:24 AM [facility] Comment: GFR Calc Starting 09/17/2018, serum creatinine ba sed estimated GFR (eGFR) will be calculated using the Chronic Kidney Dise [facility] Epidemiology Collaboration (CKD-EPI) equation. Calcium 9.2 8.5 - 10.1 mg/dL 11/25/2018 11:24 AM [facility] Specimen Anatomical Collection Method Collection Time Receive d Time (Source) Location / / Volume Laterality Blood specimen 11/25/2018 10:56 9 (specimen) AM FRUIT INSPECTOR 10:59 AM FRUIT INSPECTOR Tammy Montenegro PA-C LAB - BLOOD ORDERABLES Performing Organization Address City/State/ZIP Code Phon e Number M [facility] [address] [place], [place] [address] [facility] [address] [place], [place] [address] [facility] [phone] documented in this encounter Visit Diagnoses Diagnosis ACS (acute coronary syndrome) (H) Intermediate coronary syndrome documented in this encounter Care Teams Business Solutions Architect Relationship Specialty Start Date End Date Slava Hernandez PA-C PCP - General Physician Online Content Developer 07/02/18 06/29/21 [facility] [address] [place] [address] documented as of this encounter
--- OUTSIDE RECORDS SUMMARY | 2022-07-19 08:23 | XMS_ITS | Encounter Summary ---
:1940 Author Organization [place] Address [facility] [place] [address] Care Team Providers Name Role Phone Slava Hernandez PA-C Primary Care Provider Reason for Visit Reason Onset Date Comments Refill Request 12/31/2018 Tamsulosin Encounter Details Date Type Department Care Team Description 12/31/2018 Refill [facility] Shea Rivera, Refill Request Urology Clinic Patt LÓPEZ (Tamsulosin) [address] [place] [address] [place], [place] [address] (Wo rk) Social History Tobacco Use Types [...] pt know. Thanks,MH ----- Message ----- From: Chacon Afsaneh Loera Sent: 12/30/2018 9:51 AM To: Shea Rivera PA-C, # Subject: Medication Shea/ Nurses, Patient came in with Terazosin 5mg CAP And said he would like to switch back to Tamsulosin 0.4mg CAP. [facility] preffered pharmacy is [facility], mail order. 90 day supply Call back if needed is [phone] Thanks! documented in this encounter Plan of Treatment Upcoming Encounters Date Type Specialty Care Team Description 08/16/2022 Ancillary Procedure Cardiology Timothy Smith MD [address] [place] [address] (Wo rk) 08/16/2022 Office Visit Cardiology Timothy Smith MD [address] [place] [address] (Wo rk) documented as of this encounter Visit Diagnoses Diagnosis Urinary frequency - Primary Weak urinary stream Slowing of urinary stream documented in this encounter Care Teams Principal Network Engineer Relationship Specialty Start Date End Date Slava Hernandez PA-C PCP - General Physician Debate Director 07/02/18 06/29/21 [facility] [address] [place] [address] documented as of this encounter
--- OUTSIDE RECORDS SUMMARY | 2022-07-19 08:23 | XMS_ITS | Encounter Summary ---
:1940 Author Organization [place] Address Pending sale to [facility] [address] Care Team Providers Name Role Phone Slava [...] MD [address] [place] [address] (Wo rk) 08/16/2022 Office Visit Cardiology Timothy Smith MD [address] [place] [address] (Wo rk) documented as of this encounter Visit Diagnoses Not on filedocumented in this encounter Care Teams Sprinkler Installer Relationship Specialty Start Date End Date Slava Hernandez PA-C PCP - General Physician Supervisor Finishing Room 07/02/18 06/29/21 [facility] [address] [place] [address] documented as of this encounter
--- OUTSIDE RECORDS SUMMARY | 2022-07-19 08:23 | XMS_ITS | Encounter Summary ---
:1940 Author Organization [place] Address Critical access hospital0 [facility] [place] [address] Care Team Providers Name Role Phone Slava Hernandez PA-C Primary Care Provider Reason for Visit Reason Comments Follow Up 1 week Encounter Details Date Type Department Care Team Description 11/28/2018 Office Visit [facility] Elda Johnson ed edema (Primary Dx); Heart Clinic Patt Montoya APRN SCREENER AND BLENDER Ischemic cardiomyopathy; [address] 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) [facility] [address] [place] [address] [place] [address] [phone] Social History Tobacco Use Types Packs/Day Years Used Date Smoking Tobacco: Never Smokeless Tobacco: Never Alcohol Use Standard Drinks/Week Comments No 0 (1 standard drink = 0.6 oz pure alcoho l) Sex Assigned at Date Recorded Not on file documented as of this encounter Last Filed Vital Signs Vital Sign Reading Time Taken Comments Blood Pressure 104/61 11/28/2018 10:40 AM CLAIMS DIRECTOR Pulse 54 11/28/2018 10:40 AM CLAIMS DIRECTOR Temperature - - Respiratory Rate - - Oxygen Saturation - - Inhaled Oxygen Concentration - - Weight 140.6 kg (310 lb) 11/28/2018 10:40 AM CLAIMS DIRECTOR Height 180.3 cm (5' 10.98) 11/28/2018 10:40 AM CLAIMS DIRECTOR Body Mass Index 43.26 11/28/2018 10:40 AM CLAIMS DIRECTOR documented in this encounter Progress Notes Alex Elda Montoya, FLACO SCREENER AND BLENDER - 11/28/2018 10:50 AM CST HPI: Haris [...] age++) 4. Sinus node dysfunction s/p dual-chamber [employer] pacemaker 01/2016. 5. Coronary disease status [...] patient declined. Diagnostics: EKG (11/15/2018) revealed intermittent MEDIA CONSULTANT OUTSIDE SALES @ 76 bpm with 2 PVCs of [...] any questions or concerns. Elda Johnson APRN, SCREENER AND BLENDER This note was completed in part using Project[employer]aker voice recognition software. Although reviewed after completion, [...] on phone: None Gets together: None Attends samaritan service: None Active member of club or organization: None Attends meetings of clubs or organizations: None Relationship status: None ??? Intimate partner violence: Fear of current or ex partner: None Emotionally abused: None Physically abused: None Forced sexual activity: None Other Topics Concern ??? Parent/sibling w/ CABG, RI or angioplasty before 65F 55M? No ??? [...] No referring provider defined for this encounter. MS DIRECTOR documented in this encounter Plan of Treatment Upcoming Encounters Date Type Specialty Care Team Description 08/16/2022 Ancillary Procedure Cardiology Timothy Smith MD [address] [place] [address] (Fiorella olvera) 08/16/2022 Office Visit Cardiology Timothy Smith MD [address] [place] [address] (Fiorella olvera) documented as of this encounter Results (ABNORMAL) Basic metabolic panel (12/12/2018 9:12 AM CDT) [facility] Signature Sodium 143 133 - 144 12/12/2018 [place] mmol/L 9:51 AM [facility] Potassium 4.2 3.4 - 5.3 12/12/2018 [place] mmol/L 9:51 AM [facility] Chloride 106 94 - 109 12/12/2018 [place] mmol/L 9:51 AM [facility] Carbon Dioxide 31 20 - 32 12/12/2018 [place] mmol/L 9:56 AM [facility] Anion Gap 6 3 - 14 12/12/2018 [place] mmol/L 9:56 AM [facility] Glucose 101 (H) 70 - 99 12/12/2018 [place] mg/dL 9:56 AM [facility] Urea Nitrogen 55 (H) 7 - 30 12/12/2018 [place] mg/dL 9:56 AM [facility] Creatinine 2.20 (H) 0.66 - 12/12/2018 [facility] 1.25 mg/dL 9:56 AM [facility] GFR Estimate 27 (L) >60 12/12/2018 [place] mL/min/{1. 9:56 AM [facility] 73_m2} [facility] Comment: Non GFR Calc Starting 09/17/2018, serum creatinine ba sed estimated GFR (eGFR) will be calculated using the Chronic Kidney Dise [facility] Epidemiology Collaboration (CKD-EPI) equation. GFR Estimate If 32 (L) >60 mL/min/{1.73_m2} 12/12/2018 9: 56 AM [facility] Comment: GFR Calc Starting 09/17/2018, serum creatinine ba sed estimated GFR (eGFR) will be calculated using the Chronic Kidney Dise [facility] Epidemiology Collaboration (CKD-EPI) equation. Calcium 8.8 8.5 - 10.1 mg/dL 12/12/2018 9:56 AM [facility] Specimen Anatomical Collection Method Collection Time Receive d Time (Source) Location / / Volume Laterality Blood specimen 12/12/2018 9:12 AM 019 9:14 (specimen) CDT AM CDT Elda Johnson APRN SCREENER AND BLENDER LAB - BLOOD ORDERABL ES Performing Organization Address City/State/ZIP Code Phon e Number M [facility] [address] [place], [place] [address] [facility] [address] [place] [id number] [facility] [phone] documented in this encounter Visit Diagnoses Diagnosis Localized edema - Primary Edema Ischemic cardiomyopathy Other specified forms of chronic ischemi c heart disease 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
--- OUTSIDE RECORDS SUMMARY | 2022-07-19 08:23 | XMS_ITS | Encounter Summary ---
:1940 Author Organization [place] Address [address] [place] [address] Care Team Providers Name Role Phone Slava Hernandez PA-C Primary Care Provider Reason for Referral CV Testing - Closed Specialty Diagnoses / Procedures Referred By Contact Refer red To Contact Diagnoses Syncope and collapse Steven Canchola, Procedures Cardiac Device Check - Remote [address] [place] [address] Referral ID Status Reason Start Date Expiration Date Visits Requ ested Visits Authorized [id number] Closed 12/10/2018 12/10/2019 1 1 Reason for Visit CV Testing - Closed Specialty Diagnoses / Procedures Referred By Contact Refer red To Contact Diagnoses Syncope and collapse Steven Canchola, Procedures Cardiac Device Check - Remote [address] [place] [address] Referral ID Status Reason Start Date Expiration Date Visits Requ ested Visits Authorized [id number] Closed 09/01/2018 09/01/2019 1 1 Encounter Details Date Type Department Care Team Description 12/10/2018 [facility] Steven Canchola Sync ope and Procedure [facility] MD Jose collapse [facility] [address] [place] [address] [facility] [address] [place] [address] [place] [phone] (Wo rk) [address] [phone] Social History Tobacco Use Types Packs/Day Years [...] [address] [place] [phone] (Wo rk) 08/16/2022 Office Visit Cardiology Timothy Smith MD [address] [place] [phone] (Wo rk) documented as of this encounter [...] Range Method Time At Signature Date Time [id number] [employer] Interrogation Session Implantable [employer] Pulse Generator [employer]astics [employer] Composites Inspector Implantable L121 ESSENTIO EL [employer]IC Pulse Generator Model Implantable [id number] [employer]IC Pulse Generator Serial Number Type Remote [facility] Interrogation Session Clinic Name [facility] Implantable Pacemaker [employer]ONIC Pulse Generator Type Implantable [id number] [employer]IC Pulse Generator Implant Date Implantable Lead [facility] [facility] [employer] RAUL [employer] Inspector Implantable Lead 8TC Tendril MEDTRONI C Model STS Implantable Lead [id number] [employer] Serial Number Implantable Lead [id number] MED[employer]IC Implant Date Implantable Lead Bipolar Lead [employer] Polarity Type Implantable Lead UNKNOWN [employer] Location Detail 1 Implantable Lead Right Atrium [facility] Location Implantable Lead [facility]UL [employer] Inspector Implantable Lead 8TC Tendril MEDTRONI C Model STS Implantable Lead [id number] [employer] Serial Number Implantable Lead [id number] MEDTR[employer]IC [...] [employer]IC Pacing Threshold Pulse Width Battery Date [id number] [employer] Time of Measurements Battery Status Beginning of [employer] Service Battery 114 mo [employer] Remaining Longevity Battery 100 % [employer] Remaining Percentage Brandon Statistic [id number] [employer]TR[employer]IC Date Time Start Brandon Statistic MEDTRONIC Date Time End Brandon Statistic 0 % [employer] RA Percent Paced Brandon Statistic 60 % [employer] RV Percent Paced Atrial Tachy MEDTRONIC Statistic Date Time Start Atrial Tachy MEDTRONIC Statistic Date Time End Atrial Tachy 100 % [facility] Statistic AT/AF [place] Percent Episode 1 [facility] Statistic Recent Count [...] [place] [facility] Statistic Vendor Type Category Episode [id number] [facility] Statistic Recent Date Time Start Episode [id number] [facility] Statistic Recent Date Time End Episode [id number] [facility] Statistic Recent Date Time Start Episode [id number] [facility] Statistic Recent Date Time End Episode [id number] [facility] Statistic Recent Date Time Start Episode [id number] [facility] Statistic Recent Date Time End Episode [id number] [facility] Statistic Recent Date Time Start Episode [id number] [facility] Statistic Recent Date Time End Episode APM-91 [facility] Identifier Episode Type Periodic EGM [facility] Category Episode Date [id number] [facility] Time Episode [id number]-1947 [facility] Identifier Episode Type Other [employer]TRONIC Category Episode Date [id number] [facility] Time Episode V-1456 [employer]IC Identifier Episode Type [place] [facility]IC Category Episode Date [id number] [facility]IC Time Episode Duration 22 s MEDTRONIC Episode V-1455 [employer]IC Identifier Episode Type SVT MEDTRONIC Category Episode Vendor SVT MEDTR[employer]IC Type Category Episode Date [id number] MEDTRONIC Time Episode Duration 110 s MEDTRONIC Episode V-1454 MEDTR[employer]IC Identifier Episode Type [place] [facility]TR[facility]IC Category Episode Date [id number] [employer]TR[employer]IC Time Episode Duration 15 s MEDTRONIC Episode V-1453 MEDTR[employer]IC Identifier Episode Type VT MEDTRONIC Category Episode Date [id number] [employer]TR[employer]IC Time Episode Duration 21 s MEDTRONIC Episode V-1452 MEDTR[employer]IC Identifier Episode Type VT MEDTRONIC Category Episode Date [id number] [employer]TR[employer]IC Time Episode Duration 21 s MEDTRONIC Episode V-1451 MEDTRONIC Identifier Episode Type VT MEDTRONIC Category Episode Date [id number] MEDTR[employer]IC Time Episode Duration 15 s MEDTRONIC Episode V-1450 MEDTRONIC Identifier Episode Type VT MEDTRONIC Category Episode Date [id number] MEDTR[employer]IC Time Episode Duration 17 s MEDTRONIC Episode V-1449 MED[employer]IC Identifier Episode Type VT MEDTRONIC Category Episode Date [id number] MEDTR[employer]IC Time Episode Duration 13 s MEDTRONIC Episode V-1448 MEDTRONIC Identifier Episode Type [place] MEDTRONIC Category Episode Date [id number] [facility]IC Time Episode Duration 19 s MEDTRONIC Episode ATR-6506 [employer]IC Identifier Episode Type AT/AF [facility] Category Episode Date [id number] MEDTR[employer]IC Time Episode V-1447 MEDTR[employer]IC Identifier Episode Type [place] MEDTR[facility]IC Category Episode Date [id number] MEDTRONIC Time Episode Duration 17 s MEDTRONIC Episode V-1446 MED[employer]IC Identifier Episode Type [place] [facility]IC Category Episode Date [id number] [facility] Time Episode Duration 14 s [employer] Anatomical Region Laterality Modality Other Specimen (Source) Anatomical Collection Method Collection Time Re ceived Time Location / / Volume Laterality 03/18/2019 5:41 AM CDT Narrative 03/19/2019 2:34 PM CDT [employer] L121 Essentio EL (D) Remote PPM Device CheckAP: 0%DRIVER SERVICE TECHNICIAN: 60%Mode: DDDRPresenting Rhythm: Chronic Afib and VPHeart [...] plan. Steven Canchola MD [facility] INTERROGATION DEVICE EVAL REMOTE PACER UP TO 90 DAYS (12/10/2018 10:02 AM CDT) Component Value Ref Test Analysis Performed Pathologis t Range Method Time At Signature Date Time [id number] [employer] Interrogation Session Implantable [place] [employer] Pulse Generator [employer] Composites Inspector Implantable L121 ESSENTIO EL [employer]IC Pulse Generator Model Implantable 190526 [employer] Pulse Generator Serial Number Type Remote [facility] Interrogation Session Clinic Name [facility]IC Implantable Pacemaker [employer]IC Pulse Generator Type Implantable [id number] [employer]IC Pulse Generator Implant Date Implantable Lead [facility] [facility] [employer] RAUL [employer] Inspector Implantable Lead 2088TC Tendril MEDTRONI C Model STS Implantable Lead [id number] [employer] Serial Number Implantable Lead [id number] [employer]ONIC Implant Date Implantable Lead Bipolar Lead [employer] Polarity Type Implantable Lead UNKNOWN [employer] Location Detail 1 Implantable Lead Right Atrium [employer] Location Implantable Lead [employer] RAUL [employer] Inspector Implantable Lead 2088TC Tendril MEDTRONI C Model STS Implantable Lead [id number] [employer] Serial Number Implantable Lead [id number] [employer]IC Implant Date Implantable Lead Bipolar Lead [...] [employer]TRONIC Pacing Threshold Pulse Width Battery Date [id number] [employer] Time of Measurements Battery Status Beginning of MEDTR[employer]IC Service Battery 102 mo [employer] Remaining Longevity Battery 97 % [employer] Remaining Percentage Brandon Statistic [id number] [employer]IC Date Time Start Brandon Statistic MEDTRONIC Date Time End Brandon Statistic 0 % [employer] RA Percent Paced Brandon Statistic 71 % [employer] RV Percent Paced Atrial Tachy [id number] MEDTRONIC Statistic Date Time Start Atrial Tachy [id number] [facility]TRONIC Statistic Date Time End Atrial Tachy 100 % [employer]TRONIC Statistic AT/AF [place] Percent Episode 0 [facility]IC Statistic Recent Count [...] [place] [facility]TRONIC Statistic Vendor Type Category Episode [id number] [facility]TRONIC Statistic Recent Date Time Start Episode [id number] [facility]TR[facility]IC Statistic Recent Date Time End Episode [id number] [facility]TR[employer]IC Statistic Recent Date Time Start Episode [id number] [facility]TRONIC Statistic Recent Date Time End Episode [id number] MEDTRONIC Statistic Recent Date Time Start Episode [id number] MEDTRONIC Statistic Recent Date Time End Episode [id number] [facility]TR[facility]IC Statistic Recent Date Time Start Episode [id number] MEDTRONIC Statistic Recent Date Time End Episode APM-90 [facility]IC Identifier Episode Type Periodic EGM [facility]IC Category Episode Date [id number] [facility]IC Time Episode RVAT-1695 [facility]IC Identifier Episode Type Other MEDTRONIC Category Episode Date [id number] MEDTRONIC Time Episode V-1440 MEDTRONIC Identifier Episode Type VT MEDTRONIC Category Episode Date [id number] MEDTRONIC Time Episode Duration 12 s MEDTRONIC Episode V-1439 MEDTRONIC Identifier Episode Type [place] [facility]IC Category Episode Date [id number] [employer] Time Episode Duration 13 s [employer] Anatomical Region Laterality Modality Other Specimen (Source) Anatomical Collection Method Collection Time Re ceived Time Location / / Volume Laterality 12/10/2018 5:42 AM CDT Narrative 12/11/2018 12:07 PM CDT [employer] Essentio (D) Remote PPM Device CheckAP: 0%\X090A\DRIVER SERVICE TECHNICIAN: 71%Mode: ??DDDR ? Presenting Rhythm: AFib with [...] ont. Gave patient results over the phone. EXenia,CVTI have reviewed and interpreted the device interrogation, settings, programming and nurse's summary. The device is functioning within normal device paramet ers. I agree with the current findings, assessment and plan. Steven Canchola MD [facility] documented in this encounter Visit Diagnoses Diagnosis Syncope and collapse Syncope and collapse documented in this encounter Care Teams Product Responsibility Liaison Relationship Specialty Start Date End Date Slava Hernandez, PAIlanaC PCP - General Physician [place] Cook 07/02/18 06/29/[address] [address] documented as of this encounter
--- OUTSIDE RECORDS SUMMARY | 2022-07-19 08:23 | XMS_ITS | Encounter Summary ---
:1940 Author Organization [place] Address [facility] [place] [address] Care Team Providers Name Role Phone Slava [...] MD [address] [place] [address] (Wo rk) 08/16/2022 Office Visit Cardiology Timothy Smith MD [address] [place] [phone] (Wo rk) documented as of this encounter Visit Diagnoses Not on filedocumented in this encounter Care Teams Customer Support Advisor Relationship Specialty Start Date End Date Slava Hernandez PA-C PCP - General Physician Rn Support Services 07/02/18 06/29/21 [facility] [address] [place] [address] documented as of this encounter
--- OUTSIDE RECORDS SUMMARY | 2022-07-19 08:23 | XMS_ITS | Encounter Summary ---
:1940 Author Organization [place] Address [address] [facility] [place] [address] Care Team Providers Name Role Phone Slava [...] PERICARDIOCENTESIS HC ECHO MYOCARD BX MARIBEL Torres [phone] C INJECTION, PERFLUTREN LIPI D MICROSPHERES, PER ML HC STATISTIC IV PUSH SINGLE INITIAL SUBSTANCE [address] [place] [address] [place] [address] Phone: Fax: Referral ID Status Reason Start Date Expiration Date Visits Requ ested Visits Authorized [id number] Closed 11/15/2018 11/15/2019 1 1 SCAPE MANAGEMENT TECHNICIAN Reason for Visit CV Testing (Routine) - [...] PERICARDIOCENTESIS HC ECHO MYOCARD BX [place] Torres [phone] [employer] [address] INJECTION, PERFLUTREN LIPI D MICROSPHERES, PER ML HC STATISTIC IV PUSH SINGLE INITIAL SUBSTANCE [address] [place] [address] [place] [address] Phone: Fax: Referral ID Status Reason Start Date Expiration Date Visits Requ ested Visits Authorized [id number] Closed 11/15/2018 11/15/2019 1 1 Encounter Details Date Type Department Care Team Description 11/18/2018 [facility] [place] Tammyame Jaeger smal atrial fibrillation (H); Encounter [facility] MARIBEL Torres Cardiomyopathy, unspecified type (H); [facility] [address] Ischemic cardiomyopathy [address] [place] [place] [address] [place], [place] [phone] [address] (Work) [phone] Social History Tobacco Use Types Packs/Day Years [...] Coronary artery disease minutes as needed involving napaimute coronary for chest pain artery of napaimute heart without angina pectoris ondansetron (ZOFRAN ODT) Take 1 tablet (4 10 tablet 0 07/0501/01/2019 4 MG ODT tab mg) by mouth every 8 hours as needed for nausea oxyCODONE IR (ROXICODONE) Take 1 tablet (5 12 tablet 0 10/0 01/201801/01/2019 5 MG tablet mg) by mouth [...] [address] [place] [phone] (Wo rk) 08/16/2022 Office Visit Cardiology Timothy Smith MD [address] [place] [phone] (Wo rk) documented as of this encounter Procedures Procedure Name Priority Date/Time Associated Diagnosis Comme nts ECHO COMPLETE Routine 11/18/2018 11:17 AM Paroxysmal atrial Re sults for this LANDSCAPE MANAGEMENT TECHNICIAN fibrillation (H) procedure are in Cardiomyopathy, the results unspecified type (H) section. Ischemic cardiomyopathy documented in this encounter Results ECHO COMPLETE (11/18/2018 11:17 AM LANDSCAPE MANAGEMENT TECHNICIAN) Anatomical Region Laterality Modality Echocardiography Specimen (Source) Anatomical Collection Method Collection Time Re ceived Time Location / / Volume Laterality 11/18/2018 10:35 AM LANDSCAPE MANAGEMENT TECHNICIAN Narrative 11/19/2018 3:59 PM LANDSCAPE MANAGEMENT TECHNICIAN [id number]^BELEN^TAMMY^JOSEFABELINO [facility] Echocardiography Laboratory [address] [place] [id number] Name: RADHA VILLA : 1940 Study Date: 11/18/2018 10:35 AM Age: 78 yrs Gender: Male Patient Location: [facility] Reason For Study: Paroxysmal atrial fibr [...] note might be different from the original. [id number]^BELEN^TAMMY^JUSTEN [facility] Echocardiography Laboratory [address] [facility] [place] [address] Name: RADHA VILLA : 1940 Study Date: 11/18/2018 10:35 AM Age: 78 yrs Gender: Male Patient Location: [facility] Reason For Study: Paroxysmal atrial fibr [...] disease documented in this encounter Care Teams Instrument Repairer Relationship Specialty Start Date End Date Slava Hernandez PA-C PCP - General Physician Pipe Processor 07/02/18 06/29/21 [facility] [address] [place] [address] documented as of this encounter
--- OUTSIDE RECORDS SUMMARY | 2022-07-19 08:23 | XMS_ITS | Encounter Summary ---
:1940 Author Organization [place] Address [address] [facility] [place] [address] Care Team Providers Name Role Phone Slava Hernandez PA-C Primary Care Provider Encounter Details Date Type Department Care Team Description 11/18/2018 [facility] Heart Paro xysmal atrial fibrillation (H); Clinic [place] Cardiomyopathy, unspecified type (H); [address] [facility] Ischemi c cardiomyopathy [address] [place] [address] Social History Tobacco Use Types Packs/Day Years Used Date Smoking Tobacco: Never Smokeless Tobacco: Never Alcohol Use Standard Drinks/Week Comments No 0 (1 standard drink = 0.6 oz pure alcoho l) Sex Assigned at Date Recorded Not on file documented as of this encounter Plan of Treatment Upcoming Encounters Date Type Specialty Care Team Description 08/16/2022 Ancillary Procedure Cardiology Timothy mSith MD [address] [place] [phone] (Wo rk) 08/16/2022 Office Visit Cardiology Timothy Smith MD [address] [place] [phone] (Wo rk) documented as of this encounter Procedures Procedure Name Priority Date/Time Associated Diagnosis Comme nts BASIC METABOLIC Routine 11/18/2018 10:02 Paroxysmal atrial Res ults for this PANEL AM AIR SUPPORT CONTROL OFFICER fibrillation (H) procedure are in Cardiomyopathy, the results unspecified type (H) section. Ischemic cardiomyopathy documented in this encounter Results (ABNORMAL) Basic metabolic panel (11/18/2018 10:[address] [facility]) Analysis Performed At Patho logist Time Signature Sodium 144 133 - 144 11/18/2018 [facility] mmol/L 10:39 AM [facility] Potassium 3.8 3.4 - 5.3 11/18/2018 [facility] mmol/L 10:39 AM [facility] Chloride 105 94 - 109 11/18/2018 [facility] mmol/L 10:39 AM [facility] Carbon Dioxide 33 (H) 20 - 32 11/18/2018 [facility] mmol/L 10:46 AM [facility] Anion Gap 6 3 - 14 11/18/2018 [facility] mmol/L 10:46 AM [facility] Glucose 146 (H) 70 - 99 11/18/2018 [facility] mg/dL 10:46 AM [facility] Urea Nitrogen 30 7 - 30 11/18/2018 [facility] mg/dL 10:46 AM [facility] Creatinine 1.35 (H) 0.66 - 11/18/2018 [facility] 1.25 mg/dL 10:46 AM [facility] GFR Estimate 49 (L) >60 11/18/2018 [place] mL/min/{1. 10:46 AM [facility] 73_m2} HOSPITAL Comment: Non GFR Calc Starting 09/17/2018, serum creatinine ba sed estimated GFR (eGFR) will be calculated using the Chronic Kidney Dise [facility] Epidemiology Collaboration (CKD-EPI) equation. GFR Estimate If 57 (L) >60 mL/min/{1.73_m2} 11/18/2018 10:46 AM [facility] Comment: GFR Calc Starting 09/17/2018, serum creatinine ba sed estimated GFR (eGFR) will be calculated using the Chronic Kidney Dise [facility] Epidemiology Collaboration (CKD-EPI) equation. Calcium 9.2 8.5 - 10.1 mg/dL 11/18/2018 10:46 AM [facility] Specimen Anatomical Collection Method Collection Time Receive d Time (Source) Location / / Volume Laterality Blood specimen 11/18/2018 10:02 9 (specimen) AM AIR SUPPORT CONTROL OFFICER 10:[address] [facility] Tammy Montenegro PA-C LAB - BLOOD ORDERABLES Performing Organization Address City/State/ZIP Code Phon e Number M [facility] [address] [place], [place] [address] [facility] [address] [place], [place] [address] [place] [address] documented in this encounter Visit Diagnoses Diagnosis Paroxysmal atrial fibrillation (H) Atrial fibrillation Cardiomyopathy, unspecified type (H) Ischemic cardiomyopathy Other specified forms of chronic ischemi c heart disease documented in this encounter Care Teams Tube Sizer Operator Relationship Specialty Start Date End Date Slava Hernandez PA-C PCP - General Physician Nurses' Aide 07/02/18 06/29/21 [facility] [address] [place] [address] documented as of this encounter
--- OUTSIDE RECORDS SUMMARY | 2022-07-19 08:23 | XMS_ITS | Encounter Summary ---
:1940 Author Organization [place] Address [address] [facility] [place] [address] Care Team Providers Name Role Phone Slava Hernandez PA-C Primary Care Provider Reason for Referral - Closed Specialty Diagnoses / Procedures Referred By Contact Refer red To Contact Diagnoses Persistent atrial fibrillation (H) Ankur Smith MD [address] [place] [address] Referral ID Status Reason Start Date Expiration Date Visits Requ ested Visits Authorized [id number] Closed 01/01/2019 01/01/2020 1 1 Reason for Visit Reason Comments Edema Cardiomyopathy Encounter Details Date Type Department Care Team Description 01/01/2019 Office Visit [facility] Ankur Smith MD ACS (acute coronary syndrome) (H) (Prima ry Dx); [facility] [place] [address] Palpitations; [address] Persistent atrial fibrillation (H) [facility] [address] [place] [address] [place] [phone] Social History Tobacco Use Types Packs/Day Years [...] have rapid ventricular rate. cc: HANK Handley [facility] [id number] [place] [address] ANKUR SMITH MD MT: CAITLYN Name: RADHA VILLA Account: [id number] : 1940 Service Date: 01/01/2019 Document: [id number] Ankur Smith MD - 01/01/2019 11:15 AM [...] on phone: None Gets together: None Attends worship service: None Active member of club or organization: None Attends meetings of clubs or organizations: None Relationship status: None ??? Intimate partner violence: Fear of current or ex partner: None Emotionally abused: None Physically abused: None Forced sexual activity: None Other Topics Concern ??? Parent/sibling w/ CABG, [place] or angioplasty before 65F 55M? No ??? [...] Oriented x 3 CC Slava Hernandez PA-C [address] [address] documented in this encounter Plan of Treatment Upcoming Encounters Date Type Specialty Care Team Description 08/16/2022 Ancillary Procedure Cardiology Ankur Smith MD [address] [place] [id number] (Fiorella olvera) 08/16/2022 Office Visit Cardiology Ankur Smith MD [address] [place] [phone] (Fiorella olvera) Scheduled Referrals Name Type Priority Associated Diagnoses Order S chedule Follow-Up with Referral Routine Persistent atrial Expected : 01/15/2019 Cardiac Advanced fibrillation (H) (Approx imate), Practice Provider Expires: 0 01/01/2020 documented as of this encounter Results (ABNORMAL) Basic metabolic panel (01/22/2019 9:14 AM CDT) Analysis Performed At Patho logist Time Signature Sodium 140 133 - 144 01/22/2019 [place] mmol/L 10:08 AM [facility] Potassium 4.1 3.4 - 5.3 01/22/2019 [place] mmol/L 10:08 AM [facility] Chloride 105 94 - 109 01/22/2019 [place] mmol/L 10:08 AM [facility] Carbon Dioxide 31 20 - 32 01/22/2019 [place] mmol/L 10:17 AM [facility] Anion Gap 4 3 - 14 01/22/2019 [place] mmol/L 10:17 AM [facility] Glucose 102 (H) 70 - 99 01/22/2019 [place] mg/dL 10:17 AM [facility] Urea Nitrogen 37 (H) 7 - 30 01/22/2019 [place] mg/dL 10:17 AM [facility] Creatinine 1.63 (H) 0.66 - 01/22/2019 [place] 1.25 mg/dL 10:17 AM [facility] GFR Estimate 39 (L) >60 01/22/2019 [place] mL/min/{1. 10:17 AM [facility] 73_m2} HOSPITAL Comment: Non GFR Calc Starting 09/17/2018, serum creatinine ba sed estimated GFR (eGFR) will be calculated using the Chronic Kidney Dise [facility] Epidemiology Collaboration (CKD-EPI) equation. GFR Estimate If 45 (L) >60 mL/min/{1.73_m2} 01/22/2019 10:17 AM [facility] Comment: GFR Calc Starting 09/17/2018, serum creatinine ba sed estimated GFR (eGFR) will be calculated using the Chronic Kidney Dise [facility] Epidemiology Collaboration (CKD-EPI) equation. Calcium 9.7 8.5 - 10.1 mg/dL 01/22/2019 10:17 AM [facility] Specimen Anatomical Collection Method Collection Time Receive d Time (Source) Location / / Volume Laterality Blood specimen 01/22/2019 9:14 AM 019 9:17 (specimen) CDT AM CDT Ankur Smith MD LAB - BLOOD ORDERABLES Performing Organization Address City/State/ZIP Code Phon e Number [facility] [address] [place], [place] [address] [facility] [address] [place], [place] [address] [place] [address] documented in this encounter Visit Diagnoses Diagnosis ACS (acute coronary syndrome) (H) - Prim arnie Intermediate coronary syndrome Palpitations Persistent atrial fibrillation (H) Atrial fibrillation documented in this encounter Care Teams Air Chief Marshal Relationship Specialty Start Date End Date Slava Hernandez PA-C PCP - General Physician Hide Or Skin Buffer 07/02/18 06/29/21 [facility] [address] [place] [address] documented as of this encounter
--- OUTSIDE RECORDS SUMMARY | 2022-07-19 08:23 | XMS_ITS | Encounter Summary ---
:1940 Author Organization [place] Address [facility] [place] [address] Care Team Providers Name Role Phone Mary Slava Estrella PA-C Primary Care Provider Encounter Details Date Type Department Care Team Description 09/27/2018 Telephone [facility] Heart Zarina Smith MD [facility] [address] [place] [address] [facility] [address] [place] [address] [phone] Social History Tobacco Use Types Packs/Day Years [...] call ed to let pharmacy know-yvette cummins DEADENER documented in this encounter Plan of Treatment Upcoming Encounters Date Type Specialty Care Team Description 08/16/2022 Ancillary Procedure Cardiology Timothy Smith MD [address] [place], [place] [phone] (Wo rk) 08/16/2022 Office Visit Cardiology Timothy Smith MD [address] [place] [address] (Wo rk) documented as of this encounter Visit Diagnoses Not on filedocumented in this encounter Care Teams Finisher Tailor Apprentice Relationship Specialty Start Date End Date Slava Hernandez PAIlanaC PCP - General Physician Sales Assistants And Salespersons 07/02/18 06/29/21 [facility] [address] [place] [address] documented as of this encounter
--- OUTSIDE RECORDS SUMMARY | 2022-07-19 08:23 | XMS_ITS | Encounter Summary ---
:1940 Author Organization [place] Address [facility] [place] [address] Care Team Providers Name Role Phone Slava [...] MD [address] [place] [address] (Wo rk) 08/16/2022 Office Visit Cardiology Timothy Smith MD [address] [place] [address] (Wo rk) documented as of this encounter Visit Diagnoses Not on filedocumented in this encounter Care Teams Trade Specialist Relationship Specialty Start Date End Date Slava Hernandez PA-C PCP - General Physician Completion Manager 07/02/18 06/29/21 [facility] [address] [place] [address] documented as of this encounter
--- OUTSIDE RECORDS SUMMARY | 2022-07-19 08:23 | XMS_ITS | Encounter Summary ---
:1940 Author Organization [place] Address [address] [facility] [place] [address] Care Team Providers Name Role Phone Slava Hernandez PA-C Primary Care Provider Encounter Details Date Type Department Care Team Description 12/12/2018 Telephone [facility] Heart Elda Johnson, [facility] [place] MARKETING UNDERWRITER [facility] [address] [place] [address] [place] [address] [phone] Social History Tobacco Use Types Packs/Day Years [...] on 12/18 as he has OV at [facility] on the same day. Pt states that he will decide on the OV already scheduled on 01/20. 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
--- OUTSIDE RECORDS SUMMARY | 2022-07-19 08:23 | XMS_ITS | Encounter Summary ---
:1940 Author Organization [place] Address [facility] [place] [address] Care Team Providers Name Role Phone Slava [...] MD [address] [place] [address] (Wo rk) 08/16/2022 Office Visit Cardiology Timothy Smith MD [address] [place] [address] (Wo rk) documented as of this encounter Visit Diagnoses Not on filedocumented in this encounter Care Teams Building Architect Relationship Specialty Start Date End Date Slava Hernandez PA-C PCP - General Physician Glue Jointer Feeder 07/02/18 06/29/21 [facility] [address] [place] [address] documented as of this encounter
--- OUTSIDE RECORDS SUMMARY | 2022-07-19 08:23 | XMS_ITS | Encounter Summary ---
:1940 Author Organization [place] Address [facility] [place] [address] Care Team Providers Name Role Phone Slava Hernandez PA-C Primary Care Provider Reason for Visit Reason Onset Date Comments Refill Request 01/10/2019 torsemide Encounter Details Date Type Department Care Team Description 01/10/[address] [facility] Heart Temitope [place]o, Refill Request Clinic [facility] EL (torsemide) [address] [facility] [address] [place] [address] Social History [...] months versus 30 days. Sent script to [facility] per request. SIENNA Okeefe documented in this encounter Plan of Treatment Upcoming Encounters Date Type Specialty Care Team Description 08/16/2022 Ancillary Procedure Cardiology Timothy Smith MD [address] [place] [id number] (Wo rk) 08/16/2022 Office Visit Cardiology Timothy Smith MD [address] [facility] [address] [place], [place] [address] (Wo rk) documented as of this encounter Visit Diagnoses Diagnosis Localized edema Edema documented in this encounter Care Teams City Jailer Relationship Specialty Start Date End Date Slava Hernandez PA-C PCP - General Physician Certified Midwife 07/02/18 06/29/21 [facility] [address] [place], [place] [id number] documented as of this encounter
--- OUTSIDE RECORDS SUMMARY | 2022-07-19 08:23 | XMS_ITS | Encounter Summary ---
:1940 Author Organization [place] Address [address] [place] [address] Care Team Providers Name Role Phone Slava Hernandez PA-C Primary Care Provider Reason for Referral Diagnostic Imaging XR - Closed Specialty Diagnoses / Procedures Referred By Contact Refer red To Contact Radiology. Diagnoses Calculus of kidney Shea Rivera PA-C Rh Xray Procedures XR KUB [[id number]] [address] [place] [address] [place], [place] [phone] Fax: Referral ID Status Reason Start Date Expiration Date Visits Requ ested Visits Authorized [id number] Closed 10/23/2018 10/23/2019 1 1 BOX TENDER Reason for Visit Diagnostic Imaging XR - Closed Specialty Diagnoses / Procedures Referred By Contact Refer red To Contact Radiology. Diagnoses Calculus of kidney Shea Rivera PA-C Rh Xray Procedures XR KUB [[id number]] [address] [place] [address] [place], [place] [phone] Fax: Referral ID Status Reason Start Date Expiration Date Visits Requ ested Visits Authorized [id number] Closed 10/23/2018 10/23/2019 1 1 Encounter Details Date Type Department Care Team Description 10/23/2018 Hospital Encounter [facility] MiguelShea, Calculus of kidney [facility] PA-C [address] [place] [place] [address] [phone] [place] [address] [phone] Social History Tobacco Use Types Packs/Day Years [...] Procedure Cardiology Timothy Smith MD [address] [place] [address] (Fiorella olvera) 08/16/2022 Office Visit Cardiology Timothy Smith MD [address] [place] [phone] (Fiorella olvera) documented as of this encounter Procedures Procedure Name Priority Date/Time Associated Diagnosis Comme nts XR KUB Routine 10/23/2018 2:27 PM Calculus of kidney Res ults for this DRY BOX TENDER procedure are i n the results section . documented in this encounter Results XR KUB [[id number]] (10/23/2018 2:27 PM DRY BOX TENDER) Anatomical Region Laterality Modality Abdomen/Pelvis Digital Radiography Specimen (Source) Anatomical Location Collection Method / Collectio n Time Received Time / Laterality Volume Impressions 10/23/2018 2:44 PM DRY BOX TENDER IMPRESSION: No specific evidence of the previously seen distal ureteral stone. JEFFREY PA MD Narrative 10/23/2018 2:44 PM DRY BOX TENDER XR KUB 10/23/2018 2:27 PM HISTORY: Left [...] stone. JEFFREY PA MD Shea Rivera PA-C [facility] ORDER ANN documented in this encounter Visit Diagnoses Diagnosis Calculus of kidney documented in this encounter Care Teams Certified Nursing Assistant Instructor Relationship Specialty Start Date End Date Slava Hernandez PA-C PCP - General Physician Cable Former 07/02/18 06/29/[address] [address] documented as of this encounter
--- OUTSIDE RECORDS SUMMARY | 2022-07-19 08:23 | XMS_ITS | Encounter Summary ---
:1940 Author Organization [place] Address [address] [facility] [place] [address] Care Team Providers Name Role Phone Slava Hernandez PA-C Primary Care Provider Reason for Visit Reason Onset Date Comments Clinic Care Coordination - Initial 11/26/2018 [place] [facility] OV Encounter Details Date Type Department Care Team Description 11/26/2018 Telephone [facility] Heart Lacy Washington C linic Care Coordination Clinic [place] RN - Initial (change OV) [address] [facility] [address] [place] [address] Social History Tobacco Use Types [...] mix up and pt will come to [place] on at 1050 and seeMaureen. Pt had BMP on 11/25. . Jing BRIDGE OPERATOR Telephone Encounter - Lacy Washington RN - 11/26/2018 8:19 AM CST LM with pt to have pt call back to discuss his OV scheduled for tomorrow and that it is not scheduled with enough time. MESHAelsonRN BRIDGE OPERATOR documented in this encounter Plan of Treatment Upcoming Encounters Date Type Specialty Care Team Description 08/16/2022 Ancillary Procedure Cardiology Timothy Smith MD [address] [place] [address] (Wo rk) 08/16/2022 Office Visit Cardiology Timothy Smith MD [address] [place] [address] (Wo rk) documented as of this encounter Visit Diagnoses Not on filedocumented in this encounter Care Teams Business Office Technology Instructor Relationship Specialty Start Date End Date Slava Hernandez, PAIlanaC PCP - General Physician Computer Customer Support Specialist 07/02/18 06/29/21 [facility] [address] [place] [address] documented as of this encounter
--- OUTSIDE RECORDS SUMMARY | 2022-07-19 08:23 | XMS_ITS | Encounter Summary ---
:1940 Author Organization [place] Address [facility] [place] [address] Care Team Providers Name Role Phone Slava [...] [address] [place] [address] (Wo rk) 08/16/2022 Office Visit Cardiology Timothy Smith MD [address] [place] [address] (Wo rk) documented as of this encounter Visit Diagnoses Not on filedocumented in this encounter Care Teams Applied Anthropologist Relationship Specialty Start Date End Date Slava Hernandez PA-C PCP - General Physician Soil Sort Worker 07/02/18 06/29/21 [facility] [address] [place] [address] documented as of this encounter
--- OUTSIDE RECORDS SUMMARY | 2022-07-19 08:24 | XMS_ITS | Encounter Summary ---
:1940 Author Organization [place] Address [facility] [place] [address] Care Team Providers Name Role Phone [facility] Primary Care Provider [phone] Encounter Details Date Type Department Care Team Description 05/21/[address] [facility] Heart CAD (coronary artery Clinic [place] Labor[facility] ory disease) [address] [facility] [address] [place] [address] Social History Tobacco Use Types Packs/Day Years Used Date Smoking Tobacco: Never Smokeless Tobacco: Never Alcohol Use Standard Drinks/Week Comments No 0 (1 standard drink = 0.6 oz pure alcoho l) Sex Assigned at Date Recorded Not on file documented as of this encounter Plan of Treatment Upcoming Encounters Date Type Specialty Care Team Description 08/16/2022 Ancillary Procedure Cardiology Timothy Smith MD [address] [facility] [address] [address] [place] [address] (Wo rk) 08/16/2022 Office Visit Cardiology Timothy Smith MD [address] [facility] [address] [place] [address] (Wo rk) documented as of this encounter Procedures Procedure Name Priority Date/Time Associated Diagnosis Comme nts BASIC METABOLIC Routine 05/21/2018 2:05 PM CAD (coronary arter y Results for this PANEL CDT disease) procedure are i n the results section. documented in this encounter Results (ABNORMAL) Basic metabolic panel (05/21/2018 2:05 PM CDT) [facility] Time Signature Sodium 141 136 - 145 05/21/2018 [facility] mmol/L 3:[address] [facility] A Potassium 4.7 3.5 - 5.1 05/21/2018 [facility] mmol/L 3:[address] [facility] A Chloride 101 98 - 107 05/21/2018 [facility] mmol/L 3:[address] [facility] A Carbon Dioxide 31 (H) 23 - 29 05/21/2018 [facility] mmol/L 3:[address] [facility] A Anion Gap 13.7 6 - 17 05/21/2018 [facility] mmol/L 3:[address] [facility] A Glucose 154 (H) 70 - 105 05/21/2018 [facility] mg/dL 3:[address] [facility] A Urea Nitrogen 44 (H) 7 - 30 05/21/2018 [facility] mg/dL 3:[address] [facility] A Creatinine 2.03 (H) 0.70 - 05/21/2018 [facility] 1.30 mg/dL 3:[address] [facility] A GFR Estimate 32 (L) >60 05/21/2018 [facility] mL/min/1.7 3:[address] [facility] m2 A GFR Estimate If 39 (L) >60 05/21/2018 [facility] [place] mL/min/1.7 3:[address] [facility] m2 A Calcium 10.3 8.5 - 10.5 05/21/2018 [facility] mg/dL 3:[address] [facility] A Specimen Anatomical Collection Method Collection Time Receive d Time (Source) Location / / Volume Laterality Blood specimen 05/21/2018 2:05 PM 018 2:07 (specimen) CDT PM CDT Elda Johnson APRN SOAP PRESS FEEDER LAB - BLOOD ORDERABL ES Performing Organization Address City/State/ZIP Code Phon e Number [facility] [address] [place] [place] [address] [address] documented in this encounter Visit Diagnoses Diagnosis CAD (coronary artery disease) Coronary atherosclerosis of unspecified type of vessel, [place] or graft documented in this encounter Care Teams Independent Film Maker Relationship Specialty Start Date End Date Clinic, Vinny Jaimes PCP - General 01/16/18 07/01/18 [address] [place] [address] documented as of this encounter
--- OUTSIDE RECORDS SUMMARY | 2022-07-19 08:24 | XMS_ITS | Encounter Summary ---
:1940 Author Organization [place] Address [facility] [place] [address] Care Team Providers Name Role Phone Clinic, Vinny Brian Head Primary Care Provider [phone] Slava Hernandez PA-C Primary Care Provider Reason for Visit Reason Comments FU After EP Procedure S/p unsuccessful DCCV on 05/07 Encounter Details Date Type Department Care Team Description 05/21/2018 Office Visit [facility] Timothy Smith MD [address] [facility] [address] [place] [phone] Persistent atrial fibrillation (H) (Prim arnie Dx); Heart Clinic Elda Ramires, FLACO FORMING YARDAGE CONTROL OPERATOR [address] [place] [address] Coronary artery disease involving [place] coronary artery of [place] heart with angina pectoris (H); [address] [facility] Sleep cath lab radiology technician ea, unspecified type; [address] Cardiomyopathy, unspecified type (H); [place] Typical atrial flutter (H); [phone] Ischemic cardiomyopathy [phone] Social History Tobacco Use Types Packs/Day Years [...] Afib RNs: Lacy Del Rosario and Pat [phone] Call for Electrophysiology procedure scheduling concerns [phone] Device Clinic (Pacemakers, ICDs, Loop Recorders) RN's: Sammi Cotton Lynda, MJ, Stephanie, Sue During business hours: [phone] documented in this encounter Progress Notes Elda Johnson APRN CNP - 05/21/2018 3:10 PM CDT HPI: Haris Villa is a 77 year old male [...] any questions or concerns. Elda Johnson APRN, FORMING YARDAGE CONTROL OPERATOR This note was completed in part using [employer] voice recognition software. Although reviewed after completion, [...] (H) Yes ??? Coronary artery disease involving [place] coronary artery of [place] heart with angina pectoris (H) ??? Sleep [...] 02/03/2016 CC Timothy Smith MD [address] [place] [address] TATION OPERATOR APPRENTICE documented in this encounter Plan of Treatment Upcoming Encounters Date Type Specialty Care Team Description 08/16/2022 Ancillary Procedure Cardiology Timothy Smith MD [address] [place] [phone] (Wo rk) 08/16/2022 Office Visit Cardiology Timothy Smith MD [address] [place] [phone] (Wo rk) documented as of this encounter [...] is no t available. 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
--- OUTSIDE RECORDS SUMMARY | 2022-07-19 08:24 | XMS_ITS | Encounter Summary ---
:1940 Author Organization [place] Address [facility] [place] [address] Care Team Providers Name Role Phone Clinic, [facility] Primary Care Provider Reason for Visit Reason Onset Date Comments Clinic Care Coordination - Follow-up 05/31/2018 [facility] low up appt Encounter Details Date Type Department Care Team Description 05/31/2018 [facility] Heart Temitope Tamayo, Clinic Care Coordination Clinic Patt RN - Follow-up (follow up [address] [facility] appt) [facility] [address] [place] [address] Social History Tobacco Use Types [...] 08/16/2022 Ancillary Procedure Cardiology Timothy Smith MD [address] [place] [address] (Wo rk) 08/16/2022 Office Visit Cardiology Timothy Smith MD [address] [place] [phone] (Wo rk) documented as of this encounter Visit Diagnoses Not on filedocumented in this encounter Care Teams Customer Service Representative Teacher Relationship Specialty Start Date End Date [facility], Vinny [place] PCP - General 01/16/18 07/01/18 [address] [place] [address] documented as of this encounter
--- OUTSIDE RECORDS SUMMARY | 2022-07-19 08:24 | XMS_ITS | Encounter Summary ---
:1940 Author Organization [place] Address [facility] [place] [address] Care Team Providers Name Role Phone Clinic, [facility] Primary Care Provider [phone] Encounter Details Date Type Department Care Team Description 05/07/2018 Hospital Encounter [facility] Timothy Smith MD [facility] PACU [address] [place] [address] [place] [address] [phone] (Wo rk) Social History Tobacco Use Types [...] Procedure Cardiology Timothy Smith MD [address] [place] [address] (Fiorella olvera) 08/16/2022 Office Visit Cardiology Timothy Smith MD [address] [place] [phone] (Fiorella olvera) documented as of this encounter Visit Diagnoses Not on filedocumented in this encounter Care Teams Tile Erector Relationship Specialty Start Date End Date Kemar, Vinny Jaimes PCP - General 01/16/18 07/01/18 [address] [address] [place] [address] documented as of this encounter
--- OUTSIDE RECORDS SUMMARY | 2022-07-19 08:24 | XMS_ITS | Encounter Summary ---
:1940 Author Organization [place] Address [address] [facility] [place] [address] Care Team Providers Name Role Phone Kemar, Vinny [place] Primary Care Provider [phone] Reason for Visit (Routine) - Closed Specialty Diagnoses / Procedures Referred By Contact Refer red To Contact Cardiology Diagnoses Per Sarah Persistent atrial fibrillation Rh Echo [facility] Procedures [facility]TE [address] [place], [place] [address] Phone: Fax: Referral ID Status Reason Start Date Expiration Date Visits Requ ested Visits Authorized [id number] Closed 06/26/2018 06/26/2019 1 1 Encounter Details Date Type Department Care Team Description 06/26/2018 Hospital Encounter [facility] Ankur Smith MD [facility] [address] [place] [address] AVWilfred fibrillat ion (H) [facility] [address] [address] [place] [address] [address] [place], [place] (Work) [address] Social History Tobacco Use [...] MD [address] [place] [phone] (Wo rk) 08/16/2022 Office Visit Cardiology Ankur Smith MD [address] [place] [address] (Wo rk) documented as of this encounter [...] AM CDT Narrative 06/26/2018 1:09 PM CDT [id number]^SARAH^ANKUR [facility] [address] [place] [address] Name: RADHA VILLA : 1940 Study Date: 06/26/2018 10:37 AM Age: 77 yrs Gender: Male Patient Location: [facility] Reason For Study: Persistent atrial fibr illation (H) Ordering Physician: ANKUR SMITH Referring Physician: Vinny Reinoso Salazar benito Performed By: Britany Sales RDCS BSA: 2.5 [...] max pascual: 95.8 cm/sec MV A max apscual: 59.7 cm/sec MV E/A: 1.6 MV dec time: 0.18 sec TR max pascual: 142.4 cm/sec TR max P.5 mmHg __ Report approved by: Dr. Umair clemente 06/26/2018 01:09 PM Procedure Note Umair Alves MD - 06/26/2018For matting of this note might be different from the original. [id number]^SARAH^ANKUR [facility] [address] [place] [address] Name: RADHA VILLA : 1940 Study Date: 06/26/2018 10:37 AM Age: 77 yrs Gender: Male Patient Location: [facility] Reason For Study: Persistent atrial fibr illation [...] dose documented in this encounter Care Teams Crm Coordinator Relationship Specialty Start Date End Date Clinic, Vinny Jaimes PCP - General 01/16/18 07/01/18 [address] [place] [address] documented as of this encounter
--- OUTSIDE RECORDS SUMMARY | 2022-07-19 08:24 | XMS_ITS | Encounter Summary ---
:1940 Author Organization [place] Address [facility] [place] [address] Care Team Providers Name Role Phone Clinic, [facility] Primary Care Provider [phone] Reason for Referral - Closed Specialty Diagnoses / Procedures Referred By Contact Refer red To Contact Diagnoses Typical atrial flutter (H) Timothy Smith MD [address] [place] [address] Referral ID Status Reason Start Date Expiration Date Visits Requ ested Visits Authorized [id number] Closed 05/31/2018 05/31/2019 1 1 Encounter Details Date Type Department Care Team Description 05/31/2018 Hospital Encounter [facility] Timothy Smith MD Typical atrial [facility] [address] flutter (H ) [address] [place] [address] [place] [address] [phone] Social History Tobacco Use Types Packs/Day Years [...] [address] [place] [address] (Wo rk) 08/16/2022 Office Visit Cardiology Timothy Smith MD [address] [place] [address] (Wo rk) Scheduled Referrals Name Type Priority Associated Diagnoses Order S chedule Follow-Up with Referral Routine Typical atrial Expected: Business Control Specialist flutter (H) 07/30/20 18 (Approximate), Expires: 05/31/2019 [...] 12-lead, tracing only (05/31/2018 1:40 PM CDT) [facility] Shop2 Method Time Signature Interpretation ECG Click View RADIOLOGY Image link RESULTS to view waveform and result Specimen (Source) Anatomical Collection Method Collection Time Re ceived Time Location / / Volume Laterality 05/31/2018 1:40 PM CDT Timothy Smith MD ECG ORDERABLES Performing Organization Address City/State/ZIP Code Phon e Number RADIOLOGY RESULTS EKG 12-lead, tracing only (05/31/2018 11:43 AM CDT) [facility] Shop2 Method Time Signature Interpretation ECG Click View [...] Signature WBC 7.5 4.0 - 11.0 05/31/2018 [place] 10e9/L 12:33 PM T [facility] RBC Count 4.39 (L) 4.4 - 5.9 05/31/2018 [facility] 10e12/L 12:33 PM T [facility] Hemoglobin 14.0 13.3 - 05/31/2018 [facility] 17.7 g/dL 12:33 PM T [facility] Hematocrit 42.3 40.0 - 05/31/2018 [facility] 53.0 % 12:33 PM T [facility] MCV 96 78 - 100 05/31/2018 [facility] fl 12:33 PM T [facility] MCH 31.9 26.5 - 05/31/2018 [facility] 33.0 pg 12:33 PM [facility] MCHC 33.1 31.5 - 05/31/2018 [facility] 36.5 g/dL 12:33 PM [facility] RDW 14.8 10.0 - 05/31/2018 [facility] 15.0 % 12:33 PM [facility] Platelet Count 228 150 - 450 05/31/2018 [place] 10e9/L 12:33 PM [facility] Specimen Anatomical Collection Method Collection Time Receive d Time (Source) Location / / Volume Laterality Blood specimen 05/31/2018 11:30 8 (specimen) AM CDT 12:30 PM CDT Timothy Smith MD LAB - BLOOD ORDERABLES Performing Organization Address City/[facility]/ZIP Code Phon e Number M [facility] [address] [phone] [facility] [address] [address], U [phone] (ABNORMAL) Basic metabolic panel (05/31/2018 11:30 AM CDT) P athologist Signature Sodium 140 133 - 144 05/31/2018 [place] mmol/L 12:50 PM [facility] Potassium 4.2 3.4 - 5.3 05/31/2018 [place] mmol/L 12:50 PM [facility] Chloride 104 94 - 109 05/31/2018 [place] mmol/L 12:50 PM [facility] Carbon Dioxide 29 20 - 32 05/31/2018 [place] mmol/L 12:50 PM [facility] Anion Gap 7 3 - 14 05/31/2018 [place] mmol/L 12:50 PM [facility] Glucose 119 (H) 70 - 99 05/31/2018 [place] mg/dL 12:50 PM [facility] Urea Nitrogen 27 7 - 30 05/31/2018 [place] mg/dL 12:50 PM [facility] Creatinine 1.20 0.66 - 05/31/2018 [place] 1.25 mg/dL 12:50 PM [facility] GFR Estimate 58 (L) >60 05/31/2018 [place] mL/min/1.7 12:[address] Comment: Non GFR Calc GFR Estimate If 71 >60 mL/min/1.7m2 05/31/2018 12:50 PM [facility] Comment: GFR Calc Calcium 9.1 8.5 - 10.1 mg/dL 05/31/2018 12:50 PM [facility] Specimen Anatomical Collection Method Collection Time Receive d Time (Source) Location / / Volume Laterality Blood specimen 05/31/2018 11:30 8 (specimen) AM CDT 12:30 PM T Timothy Smith MD LAB - BLOOD ORDERABLES Performing Organization Address City/State/ZIP Code Phon e Number M [facility] [address] [address] [facility] [address] [address], [facility] [phone] documented in this encounter Visit Diagnoses Diagnosis [...] Pre-procedure documented in this encounter Care Teams Clammer Relationship Specialty Start Date End Date Clinic, Vinny Jaimes PCP - General 01/16/18 07/01/18 [address] [place] [address] documented as of this encounter
--- OUTSIDE RECORDS SUMMARY | 2022-07-19 08:24 | XMS_ITS | Encounter Summary ---
:1940 Author Organization [place] Address [facility] [place] [address] Care Team Providers Name Role Phone [facility] Primary Care Provider [phone] Encounter Details Date Type Department Care Team Description 05/28/2018 [facility] Heart Aravind Sunshine, [facility] [place] [address] [facility] [address] [place] [phone] Social History Tobacco Use Types Packs/Day Years [...] [address] [place] [phone] (Wo rk) documented as of this encounter Visit Diagnoses Not on filedocumented in this encounter Care Teams Chemistry Technician Relationship Specialty Start Date End Date [facility] PCP - General 01/16/18 07/01/18 [address] [place] [phone] documented as of this encounter
--- OUTSIDE RECORDS SUMMARY | 2022-07-19 08:24 | XMS_ITS | Encounter Summary ---
:1940 Author Organization [place] Address [facility] [place] [address] Care Team Providers Name Role Phone Clinic, [facility] Primary Care Provider [phone] Reason for Visit Reason Onset Date Comments Results 05/08/2018 baseline Amio testin g/ BPM- order plaed for repeat BMP when in to see Elda due to r ising BUN Encounter Details Date Type Department Care Team Description 05/08/2018 Telephone [facility] Elda Johnson Results (baseline [facility] [place] APRN OFFICE PROFESSIONALS testing/ BPM- order [address] [facility] plaed for repeat BMP [facility] [address] [place] [address] [place] [address] due to rising BUN) [phone] Social History Tobacco Use Types Packs/Day Years Used Date Smoking Tobacco: Never Smokeless Tobacco: Never Alcohol Use Standard Drinks/Week Comments No 0 (1 standard drink = 0.6 oz pure alcoho l) Sex Assigned at Date Recorded Not on file documented as of this encounter Miscellaneous Notes Telephone Encounter - Fabiola Hurtado, SIENNA, RN - 05/08/2018 1:14 PM CDT Called [...] Procedure Cardiology Timothy Smith MD [address] [place] [phone] (Wo rk) 08/16/2022 Office Visit Cardiology Timothy Smith MD [address] [place] [phone] (Wo rk) documented as of this encounter Results (ABNORMAL) Basic metabolic panel (05/21/2018 2:05 PM CDT) Analysis Performed At Patho logist Time Signature Sodium 141 136 - 145 05/21/2018 [facility] mmol/L 3:31 PM CDT [facility] Potassium 4.7 3.5 - 5.1 05/21/2018 [facility] mmol/L 3:31 PM CDT [facility] Chloride 101 98 - 107 05/21/2018 [facility] mmol/L 3:31 PM CDT [facility] Carbon Dioxide 31 (H) 23 - 29 05/21/2018 [facility] mmol/L 3:31 PM CDT [facility] Anion Gap 13.7 6 - 17 05/21/2018 [facility] mmol/L 3:31 PM CDT [facility] Glucose 154 (H) 70 - 105 05/21/2018 [facility] mg/dL 3:31 PM CDT [facility] Urea Nitrogen 44 (H) 7 - 30 05/21/2018 [facility] mg/dL 3:31 PM CDT [facility] A Creatinine 2.03 (H) 0.70 - 05/21/2018 [facility] 1.30 mg/dL 3:31 PM CDT [facility] A GFR Estimate 32 (L) >60 05/21/2018 [facility] mL/min/1.7 3:31 PM CDT [facility] m2 A GFR Estimate If 39 (L) >60 05/21/2018 [facility] [place] mL/min/1.7 3:31 PM CDT [facility] m2 A Calcium 10.3 8.5 - 10.5 05/21/2018 [facility] mg/dL 3:31 PM CDT [facility] A Specimen Anatomical Collection Method Collection Time Receive d Time (Source) Location / / Volume Laterality Blood specimen 05/21/2018 2:05 PM 018 2:07 (specimen) CDT PM CDT Elda Johnson EDUCATION ANALYST OFFICE PROFESSIONALS LAB - BLOOD ORDERABL ES Performing Organization Address City/State/ZIP Code Phon e Number [facility] [address] [place] [address] [address] documented in this encounter Visit Diagnoses Diagnosis CAD (coronary artery disease) - Primary Coronary atherosclerosis of unspecified type of vessel, menominee or graft documented in this encounter Care Teams Plodding Operator Relationship Specialty Start Date End [facility] - [facility] 07/01/18 [address] [address] [place] [address] documented as of this encounter
--- OUTSIDE RECORDS SUMMARY | 2022-07-19 08:24 | XMS_ITS | Encounter Summary ---
:1940 Author Organization [place] Address [facility] [place] [place] [address] Care Team Providers Name Role Phone Vinny Reinoso Primary Care Provider [phone] Encounter Details Date Type Department Care Team Description 06/11/2018 Documentation Only [facility] [place], [place] [id number] [facility] [address] [place] [phone] Social History Tobacco Use Types Packs/Day Years [...] Smith and also has seen Elda Oliver WREATH MACHINE OPERATOR---had resent decrease in his lasix dose-Elda wanted pt to get a BMP 1 week after the medication decrease- He [place] [facility], and would like to have that done @ his PMD office- Vinny Jaimes-I faxed the order to [phone], and have asked them to fax results to my attention-yvette cummins 07-01-2018--I called Vinny @ [facility] to see if pt went in for labs(BMP) await the fax result or call from clinic RN-yvette cummins documented in this encounter Plan of Treatment Upcoming Encounters Date Type Specialty Care Team Description 08/16/2022 Ancillary Procedure Cardiology Timothy Smith MD [address] [place] [address] (Wo rk) 08/16/2022 Office Visit Cardiology Timothy Smith MD [address] [place] [address] (Wo rk) documented as of this encounter Visit Diagnoses Not on filedocumented in this encounter Care Teams Sap Business Analyst Relationship Specialty Start Date End Date [facility], Vinny Jaimes PCP - General 01/16/18 07/01/18 [address] [place] [phone] documented as of this encounter
--- OUTSIDE RECORDS SUMMARY | 2022-07-19 08:24 | XMS_ITS | Encounter Summary ---
:1940 Author Organization [place] Address Count includes the [facility] [place] [address] Care Team Providers Name Role Phone Mary Slava Estrella PA-C Primary Care Provider Reason for Visit Reason Comments Pacemaker Check PPM Latitude NXT Encounter Details Date Type Department Care Team Description 08/27/2018 [facility] Pac emaker Check (PPM Visit [facility] [place] Latitude NXT) [address] [place] [address] [address] [place] [address] Social History Tobacco Use Types Packs/Day Years Used Date Smoking Tobacco: Never Smokeless Tobacco: Never Alcohol Use Standard Drinks/Week Comments No 0 (1 standard drink = 0.6 oz pure alcoho l) Sex Assigned at Date Recorded Not on file documented as of this encounter Progress Notes Sary Riojas - 08/27/2018 4:30 PM CST [employer] [facility] EL L121 (D) Remote PPM Device Check AP: 0% ORAL AND MAXILLOFACIAL SURGERY: 41% Mode: DDDR Presenting Rhythm: Afib with ORAL AND MAXILLOFACIAL SURGERY Heart Rate: histogram shows good rate variation [...] transmission date over the phone to pt. Darius PAL BOOK WRITER documented in this encounter Plan of Treatment Upcoming Encounters Date Type Specialty Care Team Description 08/16/2022 Ancillary Procedure Cardiology Timothy Smith MD [address] [place] [phone] (Wo rk) 08/16/2022 Office Visit Cardiology Timothy Smith MD [address] [place] [address] (Wo rk) documented as of this encounter Procedures Procedure Name Priority Date/Time Associated Diagnosis Comme [facility] ZC PM DEVICE Routine 08/27/2018 10:09 AM Cardiac pacemaker in INTERROGATE REMOTE, UP HANDBOOK WRITER situ TO 90 DAYS, LEAD/LEADLESS HC INTERR DEVICE EVAL Routine 08/27/2018 Cardiac pacemaker i n REMOTE, PM/LDLS PM/ICD, situ UP TO 90 DAYS documented in this encounter Results INTERROGATION DEVICE EVAL REMOTE, PACER/ICD (53889) (08/27/2018) Narrative This result has an attachment that is no t available. Steven Canchola MD PROCEDURES documented in this encounter Visit Diagnoses Diagnosis Cardiac pacemaker in situ - Primary documented in this encounter Care Teams Director Of Primary Care Relationship Specialty Start Date End Date Slava Hernandez PA-C PCP - General Physician Firer Diesel Locomotive 07/02/18 06/29/21 [facility] [id number] [place] [address] documented as of this encounter
--- OUTSIDE RECORDS SUMMARY | 2022-07-19 08:24 | XMS_ITS | Encounter Summary ---
:1940 Author Organization [place] Address [address] [facility] [place] [address] Care Team Providers Name Role Phone Clinic, [facility] Primary Care Provider [phone] Encounter Details Date Type Department Care Team Description 05/02/2018 Hospital Encounter [facility] Timothy Smith MD On amiodarone [facility] [address] therapy [address] [place] [phone] Social History Tobacco Use Types Packs/Day Years [...] Procedure Cardiology Timothy Smith MD [address] [place] [address] (Fiorella olvera) 08/16/2022 Office Visit Cardiology Timothy Smith MD [address] [place] [phone] (Fiorella olvera) documented as of this encounter Procedures Procedure Name Priority Date/Time Associated Diagnosis Comme nts HEMOGLOBIN Routine 05/02/2018 3:59 PM On amiodarone therapy Results for this CDT procedure are i n the results section . documented in this encounter Results Hemoglobin FUTURE anytime (05/02/2018 3:59 PM CDT) P athologist Signature Hemoglobin 13.6 13.3 - 17.7 05/02/[address] [facility] g/dL 4:02 PM CDT HOSPITAL Specimen Anatomical Collection Method Collection Time Receive d Time (Source) Location / / Volume Laterality Blood specimen 05/02/2018 3:59 PM 018 4:00 (specimen) CDT PM CDT Timothy Smith MD LAB - BLOOD ORDERABLES Performing Organization Address City/State/ZIP Code Phon e Number M [facility] [address] [place], [place] [address] [facility] [address] [place], [place] [address] [place] [address] documented in this encounter Visit Diagnoses Diagnosis On amiodarone therapy documented in this encounter Care Teams Gasoline Pump Mechanic Relationship Specialty Start Date End Date [facility], Vinny [place] PCP - General 01/16/18 07/01/1891053 [place] [phone] documented as of this encounter
--- OUTSIDE RECORDS SUMMARY | 2022-07-19 08:24 | XMS_ITS | Encounter Summary ---
:1940 Author Organization [place] Address [facility] [place] [address] Care Team Providers Name Role Phone Clinic, [facility] Primary Care Provider [phone] Reason for Referral - Closed Specialty Diagnoses / Procedures Referred By Contact Refer red To Contact Diagnoses Paroxysmal atrial fibrillation (H) [facility] [address] [facility] [address] [place] [address] Referral ID Status Reason Start Date Expiration Date Visits Requ ested Visits Authorized [id number] Closed 05/20/2018 05/20/2019 1 1 Reason for Visit Reason Comments Clinic Care Coordination - Follow-up Encounter Details Date Type Department Care Team Description 05/07/2018 Care Coordination [facility] [place] V[place] RN Coordination - [address] [facility] Follow-up [facility] [address] [place] [phone] Social History Tobacco Use Types Packs/Day [...] [address] [place] [address] (Wo rk) 08/16/2022 Office Visit Cardiology Timothy Smith MD [address] [place] [address] (Wo rk) Scheduled Referrals Name Type Priority Associated Diagnoses Order S chedule Follow-Up with Referral Routine Paroxysmal atrial Expected : 05/20/2018 Device Clinic fibrillation (H) (Approxima te), Expires: 2018 documented as of this encounter Visit Diagnoses Diagnosis Paroxysmal atrial fibrillation (H) - Ria jing Atrial fibrillation documented in this encounter Care Teams Graduate Studies Dean Relationship Specialty Start Date End Date Clinic, Vinny Jaimes PCP - General 01/16/18 07/01/18 [address] [place] [address] documented as of this encounter
--- OUTSIDE RECORDS SUMMARY | 2022-07-19 08:24 | XMS_ITS | Encounter Summary ---
:1940 Author Organization [place] Address [address] [facility] [place] [address] Care Team Providers Name Role Phone Clinic, [facility] Primary Care Provider [phone] Reason for Referral CV Testing - Closed Specialty Diagnoses / Procedures Referred By Contact Refer red To Contact Diagnoses Persistent atrial fibrillation (H) Ankur Smith MD Procedures Cardioversion [address] [place] [address] Referral ID Status Reason Start Date Expiration Date Visits Requ ested Visits Authorized [id number] Closed 05/07/2018 05/07/2019 1 1 Reason for Visit CV Testing - Closed Specialty Diagnoses / Procedures Referred By Contact Refer red To Contact Diagnoses Persistent atrial fibrillation (H) Ankur Smith MD Procedures Cardioversion [address] [place] [id number] Referral ID Status Reason Start Date Expiration Date Visits Requ ested Visits Authorized [id number] Closed 05/07/2018 05/07/2019 1 1 Encounter Details Date Type Department Care Team Description 05/07/2018 Hospital Encounter [facility] Ankur Smith MD Persistent atrial [place] PACU [address] fibrillation (H) [address] [place] [phone] Social History Tobacco Use Types Packs/Day Years [...] followup next week at the clinic with RN CLINICAL. He will set up appt. documented in [...] performed under deep sedation assisted by the superintendent oil well services. The patches were placed in anterior and posterior fashion. A single shock of 200 joules successf ully converted to sinus rhythm. He had short runs of atrial fibrillation and atrial flutter post-cardioversion. There was no complication. ANKUR SMITH MD MT: CC Name: RADHA VILLA MRN: [id number] Account: [id number] : 1940 Procedure Date: 05/07/2018 Document: [id number] documented in this encounter Plan of Treatment Upcoming Encounters Date Type Specialty Care Team Description 08/16/2022 Ancillary Procedure Cardiology Ankur Smith MD [address] [place] [phone] ([place]) 08/16/2022 Office Visit Cardiology Ankur Smith MD [address] [place] [phone] ([place]) Scheduled Orders Name Type Priority Associated Diagnoses [...] Glucose 162 (H) 70 - 99 05/07/2018 [place] mg/dL 9:32 AM CDT [facility] Specimen Anatomical Collection Method Collection Time Receive d Time (Source) Location / / Volume Laterality Blood specimen 05/07/2018 8:58 AM 018 9:13 (specimen) CDT AM CDT Serge De Leon MD LAB - BLOOD ORDERABLES Performing Organization Address City/State/ZIP Code Phon e Number [facility] [address] [place] [address] [facility] [address] [place] [address], [place] [phone] Potassium level (05/07/2018 8:58 AM CDT) P athologist Signature Potassium 3.7 3.4 - 5.3 05/07/2018 [place] mmol/L 9:32 AM CDT [facility] Specimen Anatomical Collection Method Collection Time Receive d Time (Source) Location / / Volume Laterality Blood specimen 05/07/2018 8:58 AM 018 9:13 (specimen) CDT AM CDT Ankur Smith MD LAB - BLOOD ORDERABLES Performing Organization Address City/State/ZIP Code Phon e Number [facility] [address] [place] [address] [facility] [address] [place] [address], [place] [phone] Magnesium level (05/07/2018 8:58 AM CDT) P athologist Signature Magnesium 1.7 1.6 - 2.3 05/07/2018 [place] mg/dL 9:32 AM CDT [facility] Specimen Anatomical Collection Method Collection Time Receive d Time (Source) Location / / Volume Laterality Blood specimen 05/07/2018 8:58 AM 018 9:13 (specimen) CDT AM CDT Ankur Smith MD LAB - BLOOD ORDERABLES Performing Organization Address City/State/ZIP Code Phon e Number [facility] [address] [place] [address] [phone] [facility] [address] [place] [address], [place] [phone] documented in this encounter Visit Diagnoses Diagnosis [...] Pre-procedure documented in this encounter Care Teams Prison Warden Relationship Specialty Start Date End Date Clinic, Vinny [facility]imes PCP - General 01/16/18 07/01/18 [address] [place] [address] documented as of this encounter
--- OUTSIDE RECORDS SUMMARY | 2022-07-19 08:24 | XMS_ITS | Encounter Summary ---
:1940 Author Organization [place] Address [facility] [place] [address] Care Team Providers Name Role Phone Clinic, [facility] Primary Care Provider [phone] Reason for Visit Reason Onset Date Comments Refill Request 06/25/2018 [place] Encounter Details Date Type Department Care Team Description 06/25/2018 Refill [facility] Heart Zarina Smith MD Refill Request (eliquis) [facility] [place] [address] [facility] [address] [place] [address] [place] [phone] Social History Tobacco Use Types Packs/Day Years [...] [address] [place] [phone] (Wo rk) 08/16/2022 Office Visit Cardiology Timothy Smith MD [address] [place] [phone] (Wo rk) documented as of this encounter Visit Diagnoses Diagnosis Paroxysmal atrial fibrillation (H) Atrial fibrillation documented in this encounter Care Teams Adult Psychiatrist Relationship Specialty Start Date End Date Clinic, Vinny Jaimes PCP - General 01/16/18 07/01/18 [address] [place] [address] documented as of this encounter
--- OUTSIDE RECORDS SUMMARY | 2022-07-19 08:24 | XMS_ITS | Encounter Summary ---
:1940 Author Organization [place] Address [address] [place] [place] [address] Care Team Providers Name Role Phone Clinic, [facility] Primary Care Provider [phone] Reason for Visit Reason Onset Date Comments Clinic Care Coordination - Initial 05/30/2018 pre i nstructions for aflutter ablation scheduled for 05/31 Encounter Details Date Type Department Care Team Description 05/30/2018 Telephone [facility] Heart Temitope Tamayo, Clinic Care Coordination [facility] [place] RN - Initial (pre [address] [facility] [address] aflutter ablation [place] [phone] scheduled for 05/31 ) [phone] Social History Tobacco Use Types Packs/Day Years [...] overnight after procedure. Patient will have a mule driver post procedure and someone to stay [...] [address] [place] [phone] (Wo rk) 08/16/2022 Office Visit Cardiology Timothy Smith MD [address] [place] [phone] (Wo rk) documented as of this encounter Visit Diagnoses Not on filedocumented in this encounter Care Teams Spool Winder Relationship Specialty Start Date End Date [facility], Vinny Hamilton PCP - General 01/16/18 07/01/18 [address] [place] [address] documented as of this encounter
--- OUTSIDE RECORDS SUMMARY | 2022-07-19 08:24 | XMS_ITS | Encounter Summary ---
:1940 Author Organization [place] [facility] Address [address] [place] [address] Care Team Providers Name Role Phone Clinic, [facility] Primary Care Provider [phone] Reason for Visit Reason Comments Pacemaker Check annual - Closed Specialty Diagnoses / Procedures Referred By Contact Refer red To Contact Diagnoses Paroxysmal atrial fibrillation (H) [facility] [id number] [place] [phone] Referral ID Status Reason Start Date Expiration Date Visits Requ ested Visits Authorized [id number] Closed 05/20/2018 05/20/2019 1 1 Encounter Details Date Type Department Care Team Description 05/21/2018 [facility] Timothy Smith MD Pacemaker Check Health/Nurse [facility] [place] [address] [facility] (annual) Visit [address] [address] [place] [address] [place] [phone] Social History Tobacco Use Types Packs/Day Years Used Date Smoking Tobacco: Never Smokeless Tobacco: Never Alcohol Use Standard Drinks/Week Comments No 0 (1 standard drink = 0.6 oz pure alcoho l) Sex Assigned at Date Recorded Not on file documented as of this encounter Progress Notes Sarina Carty RN - 05/21/2018 2:30 PM CDT [employer] (D) Pacemaker Device Check AP: 0 % FACILITIES FLIGHT CHECK PILOT: 34 % Mode: DDDR 60-130 Underlying Rhythm: [...] [address] [place] [address] (Wo rk) 08/16/2022 Office Visit Cardiology Timothy Smith MD [address] [place] [phone] (Wo rk) documented as of this encounter Procedures Procedure Name Priority Date/Time Associated Diagnosis Comme [facility] PM DEVICE PROGRAMMING Routine 05/21/2018 Cardiac pacemaker in situ EVAL, SINGLE LEAD/LEADLESS SSS (sick sinu s syndrome) PACER (H) documented in this encounter Results PM DEVICE PROGRAMMING EVAL, SINGLE LEAD PACER (53094) (05/21/2018) Narrative This result has an attachment that is no t available. Timothy Smith MD PROCEDURES documented in this encounter Visit Diagnoses Diagnosis Cardiac pacemaker in situ - Primary SSS (sick sinus syndrome) (H) Sinoatrial node dysfunction documented in this encounter Care Teams Patrol Supervisor Relationship Specialty Start Date End Date [facility], [facility] PCP - General 01/16/18 07/01/18 [address] [place] [phone] documented as of this encounter
--- OUTSIDE RECORDS SUMMARY | 2022-07-19 08:24 | XMS_ITS | Encounter Summary ---
:1940 Author Organization [place] Address [facility] [address] Care Team Providers Name Role Phone Clinic, [facility] Primary Care Provider [phone] Reason for Visit Reason Onset Date Comments Clinic Care Coordination - Follow-up 05/31/2018 Encounter Details Date Type Department Care Team Description 05/31/2018 Telephone [facility] Heart Temitope Tamayo, Clinic Care Coordination Clinic [place] RN - Follow-up [address] [facility] [address] [place] [address] Social History [...] 08/16/2022 Ancillary Procedure Cardiology Timothy Smith MD [address] [facility] [address] [place] [phone] (Wo rk) 08/16/2022 Office Visit Cardiology Timothy Smith MD [address] [place] [phone] (Wo rk) documented as of this encounter Visit Diagnoses Not on filedocumented in this encounter Care Teams Screwhead Polisher Relationship Specialty Start Date End Date [facility], [facility] PCP - General 01/16/18 07/01/18 [address] [place] [address] documented as of this encounter
--- OUTSIDE RECORDS SUMMARY | 2022-07-19 08:24 | XMS_ITS | Encounter Summary ---
:1940 Author Organization [place] Address [facility] [facility] [place] [address] Care Team Providers Name Role Phone Clinic, [facility] Primary Care Provider [phone] Reason for Visit Reason Onset Date Comments Refill Request 05/07/2018 needs a bridge to co il-order script-sent to [facility] Encounter Details Date Type Department Care Team Description 05/07/2018 Refill [facility] Heart Zarina Smith MD Refill Request (needs a [facility] [address] bridge to mail-order [address] [facility] [address] script-sent to [facility]) [address] [place] [address] [place] [phone] Social History Tobacco Use Types Packs/Day Years [...] [address] [place] [phone] (Wo rk) 08/16/2022 Office Visit Cardiology Timothy Smith MD [address] [place] [phone] (Wo rk) documented as of this encounter Visit Diagnoses Diagnosis Persistent atrial fibrillation (H) Atrial fibrillation documented in this encounter Care Teams Business Information Consultant Relationship Specialty Start Date End Date [facility] [place] PCP - General 01/16/18 07/01/18 [address] [place] [phone] documented as of this encounter
--- OUTSIDE RECORDS SUMMARY | 2022-07-19 08:24 | XMS_ITS | Encounter Summary ---
:1940 Author Organization [place] Address [facility] [place] [address] Care Team Providers Name Role Phone [facility] [place] Primary Care Provider [phone] Encounter Details Date Type Department Care Team Description 05/03/2018 Orders Only [facility] Heart Isch emic cardiomyopathy; [facility] Persistent atrial fibrillati on (H) [address] [place] [address] Social History Tobacco Use Types Packs/Day [...] [address] [place] [phone] (Wo rk) 08/16/2022 Office Visit Cardiology Timothy Smith MD [address] [place] [phone] (Wo rk) documented as of this encounter [...] Signature TSH 3.79 0.40 - 4.00 05/03/[address] [facility] mU/L 10:39 AM [facility] Specimen Anatomical Collection Method Collection Time Receive d Time (Source) Location / / Volume Laterality Blood specimen 05/03/2018 9:58 AM 018 9:59 (specimen) CDT AM CDT Timothy Smith MD LAB - BLOOD ORDERABLES Performing Organization Address City/State/ZIP Code Phon e Number [place] [address] [address] [facility] [address] [phone] (ABNORMAL) Hepatic panel (05/03/2018 9:58 AM CDT) Analysis Performed At Patho logist Time Signature Bilirubin Direct 0.4 (H) 0.0 - 0.2 05/03/2018 [place] mg/dL 10:33 AM [facility] Bilirubin Total 1.0 0.2 - 1.3 05/03/2018 [place] mg/dL 10:33 AM [facility] Albumin 3.7 3.4 - 5.0 05/03/2018 [place] g/dL 10:33 AM [facility] Protein Total 7.9 6.8 - 8.8 05/03/2018 [place] g/dL 10:33 AM [facility] Alkaline 29 (L) 40 - 150 05/03/2018 [place] Phosphatase U/L 10:33 AM [facility] ALT 31 0 - 70 U/L 05/03/2018 [place] 10:33 AM [facility] AST 25 0 - 45 U/L 05/03/2018 [place] 10:33 AM [facility] Specimen Anatomical Collection Method Collection Time Receive d Time (Source) Location / / Volume Laterality Blood specimen 05/03/2018 9:58 AM 018 9:59 (specimen) CDT AM CDT Timothy Smith MD LAB - BLOOD ORDERABLES Performing Organization Address City/State/ZIP Code Phon e Number M [facility] [address] [place], [place] [address] [facility] [address] [place], [place] [address] [facility] [phone] (ABNORMAL) Basic metabolic panel (05/03/2018 9:58 AM CDT) athologist Signature Sodium 138 133 - 144 05/03/2018 [place] mmol/L 10:33 AM [facility] Potassium 4.5 3.4 - 5.3 05/03/2018 [place] mmol/L 10:33 AM [facility] Chloride 100 94 - 109 05/03/2018 [place] mmol/L 10:33 AM [facility] Carbon Dioxide 31 20 - 32 05/03/2018 [place] mmol/L 10:33 AM [facility] Anion Gap 7 3 - 14 05/03/2018 [place] mmol/L 10:33 AM [facility] Glucose 150 (H) 70 - 99 05/03/2018 [place] mg/dL 10:33 AM [facility] Urea Nitrogen 34 (H) 7 - 30 05/03/2018 [place] mg/dL 10:33 AM [facility] Creatinine 1.25 0.66 - 05/03/2018 [place] 1.25 mg/dL 10:33 AM [facility] GFR Estimate 56 (L) >60 05/03/2018 [place] mL/min/1.7 10:[address] Comment: Non GFR Calc GFR Estimate If 67 >60 mL/min/1.7m2 05/03/2018 10:[address] [facility] Comment: GFR Calc Calcium 9.2 8.5 - 10.1 mg/dL 05/03/2018 10:33 AM [facility] Specimen Anatomical Collection Method Collection Time Receive d Time (Source) Location / / Volume Laterality Blood specimen 05/03/2018 9:58 AM 018 9:59 (specimen) CDT AM CDT Timothy Smith MD LAB - BLOOD ORDERABLES Performing Organization Address City/State/ZIP Code Phon e Number M [facility] [address] [place], [place] [address] [facility] [address] [place], [place] [address] [facility] [phone] documented in this encounter Visit Diagnoses Diagnosis Ischemic cardiomyopathy Other specified forms of chronic ischemi c heart disease Persistent atrial fibrillation (H) Atrial fibrillation documented in this encounter Care Teams Office Machine Service Supervisor Relationship Specialty Start Date End Date [facility], [facility] PCP - General 01/16/18 07/01/18 [address] [place] [address] documented as of this encounter
--- OUTSIDE RECORDS SUMMARY | 2022-07-19 08:24 | XMS_ITS | Encounter Summary ---
:1940 Author Organization [place] Address [facility] [place] [address] Care Team Providers Name Role Phone Clinic, [facility] Primary Care Provider [phone] Encounter Details Date Type Department Care Team Description 05/07/2018 Anesthesia Event [facility] Ryann Chino MD [facility] [address] [place] [address] [facility] Ginger Santana, FLACO A AND P MECHANIC [address] [phone] [place] [phone] Anesthesia Record Procedure Summary Procedure Name Responsible Anesthesia Start Anesthesia Stop Anesthesiologist Time Time ECHO CARDIOVERSION - Derek Chino, 05/07/18 0951 0958 ECHO DEPARTMENT Events Date Time Event Comment 05/07/2018 0951 An Start 0951 An Start Data 0951 Quick Note Diagnosis:atriaL fibrillation Procedure: Cardioversion [employer]:Dr Smith Location:[facility] PACU room 12 0952 An Induction 0958 0958 an stop data 0958 An Stop [...] Ahuja, Inpatient, Nurse RN Peripheral IV 05/07/18; 0915; 20 05/07/18 0915 by 03/22/21 010 5 by G; Right; Hand Lindsay Freitas Inpatient, N carlos Mcgee RN Retired Non-Surgical 05/07/18; 951; 05/07/18 0952 by 03/22/21 0 105 by Airway Easy; Ginger Mclaughlin SURG PHYSICIAN ASST Inpatient, Nurse A AND P MECHANIC documented in this encounter Social History Tobacco [...] Reported, Patient Current Facility-Administered Medications Ordered in [facility] Medication Dose Route Frequency Last Rate Last Dose ??? propofol (DIPRIVAN) injection 10 mg/mL vial PRN 70 mg at 05/07/18 0952 No current [facility]-ordered outpatient prescriptions on file. Wt Readings [...] for input(s): ABO, RH in the last 10776 hours. Recent Labs Lab Test 02/04/16 1203 02/27/13 1145 INR 1.00 2.66* Recent Labs Lab Test 02/03/16 0450 02/03/16 0140 02/02/16 2140 TROPI 0.395* 0.441* 0.407* No results for input(s): PH, PCO2, PO2, HCO3 in the last 93582 hours. No results for input(s): HCG in the last 29825 hours. Recent Results (from the past 744 [...] [address] [place] [phone] (Wo rk) 08/16/2022 Office Visit Cardiology Timothy Smith MD [address] [place] [address] (Wo rk) documented as of this encounter Visit Diagnoses Not on filedocumented in this encounter Administered Medications Inactive Administered Medications - up to 3 most recent administrations Medication Order MAR Action Action Date Dose Rate Site propofol (DIPRIVAN) injection 10 Given 05/07/2018 9:52 AM CDT 70 mg mg/mL vial PRN, Starting on Sun05/07/18 at 0952, Anesthesia Intra-op documented in this encounter Care Teams Commercial Roofing Estimator Relationship Specialty Start Date End Date [facility], Vinny Jaimes PCP - General 01/16/18 07/01/18 [address] [place] [address] documented as of this encounter
--- OUTSIDE RECORDS SUMMARY | 2022-07-19 08:24 | XMS_ITS | Encounter Summary ---
:1940 Author Organization [place] Address [address] [facility] [place] [address] Care Team Providers Name Role Phone Clinic, [facility] Primary Care Provider [phone] Reason for Visit Reason Comments Pacemaker Check Rep check Pre AF ablation (c ancelled) Encounter Details Date Type Department Care Team Description 05/31/2018 Documentation Only [facility] Fabiola Hurtado Check (Rep Heart [facility] [place] Bui, RN, RN check Pre AF [address] [facility] HEART ablati on... [address] [place] [address] [phone] [address] [place] [address] [place] [phone] Social History Tobacco Use Types Packs/Day Years Used Date Smoking Tobacco: Never Smokeless Tobacco: Never Alcohol Use Standard Drinks/Week Comments No 0 (1 standard drink = 0.6 oz pure alcoho l) Sex Assigned at Date Recorded Not on file documented as of this encounter Progress Notes Fabiola Hurtado, RN, RN - 06/07/2018 3:48 PM CDT [employer] (D) PPM REP INTERROGATION Rep [...] [address] [place] [address] (Wo rk) 08/16/2022 Office Visit Cardiology Timothy Smith MD [address] [place] [phone] (Wo rk) documented as of this encounter Visit Diagnoses Not on filedocumented in this encounter Care Teams Lens Hardener Relationship Specialty Start Date End Date [facility], [facility] PCP - General 01/16/18 07/01/18 [address] [place] [phone] documented as of this encounter
--- OUTSIDE RECORDS SUMMARY | 2022-07-19 08:24 | XMS_ITS | Encounter Summary ---
:1940 Author Organization [place] Address [address] [facility] [place] [address] Care Team Providers Name Role Phone Slava Hernandez PA-C Primary Care Provider Reason for Visit Reason Comments Abdominal Pain Encounter Details Date Type Department Care Team Description 07/04/2018 - Emergency [facility] Essie Sanchez Nephr olithiasis 07/05/2018 [facility] Emergency Dep t MD Tamanna [address] [facility] [address] 543 [facility] [phone] [place], [place] [address] (Wo rk) Social History [...] documented in this encounter Discharge Instructions Discharge Essei Aguilar MD - 07/05/2018 2:18 AM CDT [...] contain Tylenol (acetaminophen), including Vicodin, Tylenol #3, [place], Lortab, and Percocet. You should not take [...] documented as of this encounter ED Notes Yeu Tyson RN - 07/05/2018 2:10 AM CDT Pt given urinal to pee. Given crackers and water for PO challenge NOT Yue Tyson RN - 07/05/2018 2:00 AM [...] but it was normal and denies diarrhea. [id number], he states that he developed left lower [...] for refractory symptoms. 4. Provided with standard [facility] Discharge instructions for Kidney Stones 5. [...] provider's statements to me. Isac Alfred 07/04/2018 [facility] EMERGENCY DEPARTMENT Essie Sanchez MD 07/07/181951 documented in this encounter Plan of Treatment Upcoming Encounters Date Type Specialty Care Team Description 08/16/2022 Ancillary Procedure Cardiology Timothy Smith MD [address] [place] [id number] (Wo rk) 08/16/2022 Office Visit Cardiology Timothy Smith MD [address] [place] [id number] (Wo rk) documented as of this encounter [...] Colonic diverticula without acute div erticulitis. 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 Procedure Note StrandCheyenne MD - 07/05/2018Form atting of this note [...] Colonic diverticula without acute div erticulitis. CHEYENNE FOOET MD Essie Sanchez MD IMG CT ORDERABLES (ABNORMAL) INR (07/04/2018 10:50 PM CDT) athologist Signature INR 1.25 (H) 0.86 - 1.14 07/05/2018 [place] 12:43 AM [facility] Specimen Anatomical Collection Method Collection Time Receive d Time (Source) Location / / Volume Laterality 07/04/2018 10:50 07/04/2018 PM CDT 11:22 PM CDT Provider Unknown LAB - BLOOD ORDERABLES Performing Organization Address City/State/ZIP Code Phon e Number [facility] [address] [address] [facility] [address] [phone] (ABNORMAL) UA with Microscopic reflex to Culture (07/04/2018 10:50 PM CDT) [facility] gist Method Time Signature Color Urine Yellow 07/04/2018 [place] 11:28 PM [facility] Appearance Urine Clear 07/04/2018 [place] 11:28 PM [facility] Glucose Urine 50 (A) NEG^Negat 07/04/2018 [place] mike mg/dL 11:28 PM [facility] Bilirubin Urine Negative NEG^Negat 07/04/2018 [place] mike 11:28 PM [facility] Ketones Urine Negative NEG^Negat 07/04/2018 [place] mike mg/dL 11:28 PM [facility] Specific [place] 1.017 1.003 - 07/04/2018 [place] Urine 1.035 11:28 PM [facility] Blood Urine Negative NEG^Negat 07/04/2018 [place] mike 11:28 PM [facility] pH Urine 5.0 5.0 - 7.0 07/04/2018 [place] pH 11:28 PM [facility] Protein Albumin Negative NEG^Negat 07/04/2018 [place] Urine mike mg/dL 11:28 PM [facility] Urobilinogen 0.0 0.0 - 2.0 07/04/2018 [place] mg/dL mg/dL 11:28 PM [facility] Nitrite Urine Negative NEG^Negat 07/04/2018 [place] mike 11:28 PM [facility] Leukocyte Negative NEG^Negat 07/04/2018 [place] Esterase Urine mike 11:28 PM [facility] Source Midstream 07/04/2018 [place] Urine 11:15 PM [facility] WBC Urine 1 0 - 5 07/04/2018 [place] /HPF 11:28 PM [facility] RBC Urine 1 0 - 2 07/04/2018 [facility] /HPF 11:28 [facility] Squamous <1 0 - 1 07/04/2018 [place] Epithelial /HPF /HPF 11:28 PM [facility] Mucous Urine Present (A) NEG^Negat 07/04/2018 [place] mike /LPF 11:28 [facility] Specimen (Source) Anatomical Collection Method Collection Time Re ceived Time Location / / Volume Laterality Examination of 07/04/2018 10:50 8 midstream urine PM T 11:15 PM [facility] specimen (procedure) Sabino Mckeon MD LAB - URINE ORDERABLES Performing Organization Address City/State/ZIP Code Phon e Number [facility] [address] [address] [place] [address] [address] 7, [facility] [phone] Lipase (07/04/2018 10:50 PM CDT) P athologist Signature Lipase 124 73 - 393 07/04/[address] [facility] U/L 11:35 PM [facility] Specimen Anatomical Collection Method Collection Time Receive d Time (Source) Location / / Volume Laterality Blood specimen 07/04/2018 10:50 8 (specimen) PM CDT 11:14 PM CDT Sabino Mckeon MD LAB - BLOOD ORDERABLES Performing Organization Address City/State/ZIP Code Phon e Number [facility] [address] [address] [place] [address] [address] [place], [place] [address] [phone] (ABNORMAL) Comprehensive metabolic panel (07/04/2018 10:50 PM CDT) Analysis Performed At Patho logist Time Signature Sodium 139 133 - 144 07/04/2018 [place] mmol/L 11:35 PM [facility] Potassium 4.2 3.4 - 5.3 07/04/2018 [place] mmol/L 11:35 PM [facility] Chloride 102 94 - 109 07/04/2018 [place] mmol/L 11:35 PM [facility] Carbon Dioxide 30 20 - 32 07/04/2018 [place] mmol/L 11:35 PM [facility] Anion Gap 7 3 - 14 07/04/2018 [place] mmol/L 11:35 PM [facility] Glucose 240 (H) 70 - 99 07/04/2018 [place] mg/dL 11:35 PM [facility] Urea Nitrogen 37 (H) 7 - 30 07/04/2018 [place] mg/dL 11:35 PM [facility] Creatinine 1.43 (H) 0.66 - 07/04/2018 [facility] 1.25 mg/dL 11:35 PM [facility] GFR Estimate 48 (L) >60 07/04/2018 [place] mL/min/1.7 11:[address] Comment: Non GFR Calc GFR Estimate If 58 (L) >60 mL/min/1.7m2 07/04/2018 11:35 PM [facility] Comment: GFR Calc Calcium 9.3 8.5 - 10.1 07/04/2018 11:[address] [facility] mg/dL [facility] Bilirubin Total 0.4 0.2 - 1.3 mg/dL 07/04/2018 11:[address] [facility] Albumin 3.9 3.4 - 5.0 g/dL 07/04/2018 11:35 PM [facility] IEW [facility] Protein Total 7.8 6.8 - 8.8 g/dL 07/04/2018 11:35 PM [facility] Alkaline Phosphatase 32 (L) 40 - 150 U/L 07/04/2018 11:[address] [facility] ALT 22 0 - 70 U/L 07/04/2018 11:[address] [facility] AST 22 0 - 45 U/L 07/04/2018 11:[address] [facility] Specimen Anatomical Collection Method Collection Time Receive d Time (Source) Location / / Volume Laterality Blood specimen 07/04/2018 10:50 8 (specimen) PM CDT 11:14 PM CDT Sabino Mckeon MD LAB - BLOOD ORDERABLES Performing Organization Address City/State/ZIP Code Phon e Number [facility] [place] [address] [address] [place] [address] [phone] (ABNORMAL) CBC + differential (07/04/2018 10:50 PM CDT) [facility] Method Time Signature WBC 7.8 4.0 - 07/05/2018 [facility] 11.0 12:03 AM [facility] 10e9/L [facility] RBC Count 4.35 (L) 4.4 - 5.9 07/05/2018 [facility] 10e12/L 12:03 AM [facility] Hemoglobin 13.9 13.3 - 07/05/2018 [facility] 17.7 g/dL 12:03 AM [facility] Hematocrit 43.3 40.0 - 07/05/2018 [facility] 53.0 % 12:03 AM [facility] MCV 100 78 - 100 07/05/2018 [facility] fl 12:03 AM [facility] MCH 32.0 26.5 - 07/05/2018 [facility] 33.0 pg 12:03 AM [facility] 32.1 31.5 - 07/05/2018 [facility] 36.5 g/dL 12:03 AM [facility] RDW 15.2 (H) 10.0 - 07/05/2018 [facility] 15.0 % 12:03 AM [facility] Platelet Count 242 150 - 450 07/05/2018 [facility] 10e9/L 12:03 AM [facility] Diff Method Automated 07/05/2018 [facility] Method 12:03 AM [facility] % Neutrophils 62.9 % 07/05/2018 [facility] 12:03 AM [facility] % Lymphocytes 19.5 % 07/05/2018 [facility] 12:03 AM [facility] % Monocytes 11.0 % 07/05/2018 [facility] 12:03 AM [facility] % Eosinophils 5.0 % 07/05/2018 [facility] 12:03 AM [facility] % Basophils 0.8 % 07/05/2018 [facility] 12:03 AM [facility] % Immature 0.8 % 07/05/2018 [facility] Granulocytes 12:03 AM [facility] Nucleated RBCs 0 0 /100 07/05/2018 [facility] 12:03 AM [facility] Absolute 4.9 1.6 - 8.3 07/05/2018 [facility] Neutrophil 10e9/L 12:03 AM [facility] Absolute 1.5 0.8 - 5.3 07/05/2018 [facility] Lymphocytes 10e9/L 12:03 AM [facility] Absolute 0.9 0.0 - 1.3 07/05/2018 [facility] Monocytes 10e9/L 12:03 AM [facility] Absolute 0.4 0.0 - 0.7 07/05/2018 [facility] Eosinophils 10e9/L 12:03 AM [facility] Absolute 0.1 0.0 - 0.2 07/05/2018 [facility] Basophils 10e9/L 12:03 AM [facility] Abs Immature 0.1 0 - 0.4 07/05/2018 [place] Granulocytes 10e9/L 12:03 AM [facility] Absolute 0.0 07/05/2018 [place] Nucleated RBC 12:03 AM [facility] Specimen Anatomical Collection Method Collection Time Receive d Time (Source) Location / / Volume Laterality Blood specimen 07/04/2018 10:50 8 (specimen) PM CDT 11:14 PM CDT Sabino Mckeon MD LAB - BLOOD ORDERABLES Performing Organization Address City/State/ZIP Code Phon e Number [place] [address] [address] [place], [place] [address] [phone] [place] [address] [phone] documented in this encounter Visit Diagnoses Diagnosis [...] analgesic side effects. Hold while on IV FLYING TEACHER or with regular IV opioid dosing. HYDROmorphone (DILAUDID) injection 0.2 m g Given 07/05/2018 1:54 AM CDT 0.2 mg 0.2 mg, Intravenous, ONCE, On Sun07/05/18 at 0114, For 1 dose documented in this encounter Active and Recently Administered Medications Times are shown in CDT. Scheduled Medication Order 07/03/2018 07/04/2018 07/05/2018 acetaminophen (TYLENOL) tablet 1,000 mg (COMPLETED) 0153 (Given - Provider: Krissy Emmanuel, SIENNA) 1,000 mg, Oral, ONCE, Sun07/05/18 at 011 4, For 1 dose, Maximum acetaminophen dose from all sources = 75 mg/kg/day not to exceed 4 gram HYDROmorphone (DILAUDID) injection 0.2 mg (COMPLETED) 0154 (Given - Provider: Krissy Emmanuel RN) 0.2 [...] analgesic side effects. Hold while on IV FLYING TEACHER or with regular IV opioid dosing. documented in this encounter Care Teams Brine Supervisor Relationship Specialty Start Date End Date Slava Hernandez PA-C PCP - General Physician Automobile Sales Consultant 07/02/18 06/29/[address] [address] documented as of this encounter
--- OUTSIDE RECORDS SUMMARY | 2022-07-19 08:24 | XMS_ITS | Encounter Summary ---
:1940 Author Organization [place] Address [address] [place] [address] Care Team Providers Name Role Phone Clinic, [facility] Primary Care Provider [phone] Reason for Visit Reason Comments Pacemaker Check Rep check post cardioversion Encounter Details Date Type Department Care Team Description 05/07/2018 Documentation Only [facility] Fabiola Hurtado Check (Rep Heart Clinic Patt Bui RN, RN check post [address] [facility] HEART cardio vers... [address] [place] [address] [phone] [address] [place] [address] Social History Tobacco Use Types Packs/Day Years Used Date Smoking Tobacco: Never Smokeless Tobacco: Never Alcohol Use Standard Drinks/Week Comments No 0 (1 standard drink = 0.6 oz pure alcoho l) Sex Assigned at Date Recorded Not on file documented as of this encounter Progress Notes Fabiola Hurtado RN, RN - 05/07/2018 1:19 PM CDT [employer] PPM REP CHECK POST CARDIOVERSION [...] [address] [place] [address] (Wo rk) 08/16/2022 Office Visit Cardiology Timothy Smith MD [address] [place] [phone] (Wo rk) documented as of this encounter Visit Diagnoses Not on filedocumented in this encounter Care Teams Hog Killer Relationship Specialty Start Date End Date [facility], [facility] PCP - General 01/16/18 07/01/18 [address] [place] [phone] documented as of this encounter
--- OUTSIDE RECORDS SUMMARY | 2022-07-19 08:24 | XMS_ITS | Encounter Summary ---
:1940 Author Organization [place] Address [address] [place] [address] Care Team Providers Name Role Phone [facility] Primary Care Provider [phone] Encounter Details Date Type Department Care Team Description 06/19/2018 Documentation Only [facility] Heart Outside, [facility] [place] [address] [facility] [address] [place] [phone] Social History Tobacco Use Types Packs/Day Years [...] MD [address] [place], [place] [phone] (Wo rk) 08/16/2022 Office Visit Cardiology Timothy Smith MD [address] [place] [id number] (Wo rk) documented as of this encounter Procedures Procedure Name Priority Date/Time Associated Diagnosis Comme nts BASIC METABOLIC PANEL Routine 06/13/2018 Result s for this procedure are i n the results section . documented in this encounter Results (ABNORMAL) Basic metabolic panel (06/13/2018) [facility] Method Time Signature Sodium 138 135 - [address] [facility] mmol/L [facility] Potassium 4.6 3.5 - 5.0 [facility] [employer] mmol/L [facility] Chloride 103 98 - 110 [facility] mmol/L [facility] Carbon Dioxide 25 21 - 31 [place] [employer] mmol/L [facility] Anion Gap 10 5 - 18 [facility] mmol/L [facility] Glucose 184 (A) 65 - 99 [facility] [employer] mg/dL [facility] Urea Nitrogen 34 (A) 8 - 25 [facility] mg/dL [facility] Creatinine 1.34 (A) 0.72 - [facility] 1.25 mg/dL [facility] Calcium 10 8.5 - 10.5 [place] [employer] mg/dL [facility] GFR Estimate 51 (A) 60 [facility] ml/min/1.7 [facility] 3m2 LABORATORY GFR Estimate If >60 60 [facility] ml/min/1.7 [facility] 3m2 LABORATORY Specimen (Source) Anatomical Location Collection Method / Collectio n Time Received Time / Laterality Volume Blood specimen 06/13/2018 (specimen) Patient Reported LAB - BLOOD ORDERABLES Performing Organization Address City/State/ZIP Code Phon e Number [facility] [address] [place] [address] LABORATORY [address] documented in this encounter Visit Diagnoses Not on filedocumented in this encounter Care Teams Administrative Representative Relationship Specialty Start Date End Date [facility], [facility] PCP - General 01/16/18 07/01/18 [address] [place] [address] documented as of this encounter
--- OUTSIDE RECORDS SUMMARY | 2022-07-19 08:24 | XMS_ITS | Encounter Summary ---
:1940 Author Organization [place] Address [address] [facility] [place] [address] Care Team Providers Name Role Phone Slava Hernandez PA-C Primary Care Provider Reason for Referral - Closed Specialty Diagnoses / Procedures Referred By Contact Refer red To Contact Diagnoses Persistent atrial fibrillation (H) Ankur Smith MD [address] [place] [address] Referral ID Status Reason Start Date Expiration Date Visits Requ ested Visits Authorized [id number] Closed 07/02/2018 07/02/2019 1 1 Reason for Visit Reason Comments Atrial Fib ekg done - Closed Specialty Diagnoses / Procedures Referred By Contact Refer red To Contact Diagnoses Persistent atrial fibrillation (H) Ankur Smith MD [address] [place] [address] Referral ID Status Reason Start Date Expiration Date Visits Requ ested Visits Authorized [id number] Closed 07/04/2018 07/04/2019 1 1 Encounter Details Date Type Department Care Team Description 07/02/2018 Office Visit [facility] Ankur Smith MD Persistent atrial [facility] [address] fibrillation (H) [address] [facility] [address] [place] [address] [place] [phone] Social History Tobacco Use Types Packs/Day Years [...] see me in 10/2018. cc: [place] [address] ANKUR SMITH MD MT: AISHWARYA Name: RADHA VILLA MRN: [id number] Account: [id number] : 1940 Service Date: 07/02/2018 Document: [id number] Ankur Smith MD - 07/02/2018 9:30 AM CDT HPI and Plan: See dictation Orders Placed This Encounter Procedures ??? Follow-Up with Invasive Cardiovascular Technologist No orders of the defined types were [...] x 3 CC Ankur Smith MD [address] [place] [phone] documented in this encounter Plan of Treatment Upcoming Encounters Date Type Specialty Care Team Description 08/16/2022 Ancillary Procedure Cardiology Ankur Smith MD [address] [place] [phone] (Wo rk) 08/16/2022 Office Visit Cardiology Ankur Smith MD [address] [place] [address] (Wo rk) Scheduled Referrals Name Type Priority Associated Diagnoses Order S chedule Follow-Up with Referral Routine Persistent atrial Expected : Invasive Cardiovascular Technologist fibrillation (H) 10/02 (Approximate), Expires: 07/02/2019 documented [...] fibrillation documented in this encounter Care Teams Medical Leader Relationship Specialty Start Date End Date Slava Hernandez, PA-C PCP - General Physician Director Business Intelligence 07/02/18 06/29/21 [facility] [address] [place] [address] documented as of this encounter
--- OUTSIDE RECORDS SUMMARY | 2022-07-19 08:25 | XMS_ITS | Encounter Summary ---
:1940 Author Organization [place] Address [facility] [place] [address] Care Team Providers Name Role Phone Graham Licona MD Primary Care Provider Reason for Visit Reason Comments Pacemaker Check PPM Latitude NXT Encounter Details Date Type Department Care Team Description 07/16/2017 Allied Health/Nurse [facility] Pac emaker Check (PPM Visit Heart Clinic [place] Latitude NXT) [address] [place] [address] [address] [place] [address] Social History Tobacco Use Types Packs/Day Years Used Date Smoking Tobacco: Never Alcohol Use Standard Drinks/Week Comments No 0 (1 standard drink = 0.6 oz pure alcoho l) Sex Assigned at Date Recorded Not on file documented as of this encounter Progress Notes Sary Riojas - 07/16/2017 9:00 AM CDT Dino Adan VALLES L121 (S) Remote PPM Device Check FIELD CARE MANAGER: 8% Mode: VVIR Presenting Rhythm: Afib with [...] [address] [place] [address] (Wo rk) 08/16/2022 Office Visit Cardiology Timothy Smith MD [address] [place] [address] (Wo rk) documented as of this encounter Procedures Procedure Name Priority Date/Time Associated Diagnosis Comme nts ZZC PM DEVICE Routine 07/16/2017 1:42 PM Cardiac pacemaker in INTERROGATE REMOTE, UP CDT situ TO 90 DAYS, LEAD/LEADLESS HC INTERR DEVICE EVAL Routine 07/16/2017 Cardiac pacemaker i n REMOTE, PM/LDLS PM/ICD, situ UP TO 90 DAYS documented in this encounter Results INTERROGATION DEVICE EVAL REMOTE, PACER/ICD (24341) (07/16/2017) Narrative This result has an attachment that is no t available. Basil Guadalupe MD PROCEDURES documented in this encounter Visit Diagnoses Diagnosis Cardiac pacemaker in situ - Primary documented in this encounter Care Teams Paddle Dyeing Machine Operator Relationship Specialty Start Date End Date Graham Licona MD PCP - General Family Practice 04/13/17 01/15/18 [facility] [address] [place] [address] documented as of this encounter
--- OUTSIDE RECORDS SUMMARY | 2022-07-19 08:25 | XMS_ITS | Encounter Summary ---
:1940 Author Organization [place] Address [facility] [place] [address] Care Team Providers Name Role Phone Graham Licona MD Primary Care Provider Reason for Visit Reason Comments Pacemaker Check PPM Latitude NXT Encounter Details Date Type Department Care Team Description 10/22/2017 Allied Health/Nurse [facility] Pac emaker Check (PPM Visit [facility] [place] Latitude NXT) [address] [place] [address] [address] [place] [address] Social History Tobacco Use Types Packs/Day Years Used Date Smoking Tobacco: Never Alcohol Use Standard Drinks/Week Comments No 0 (1 standard drink = 0.6 oz pure alcoho l) Sex Assigned at Date Recorded Not on file documented as of this encounter Progress Notes Sary Riojas - 10/22/2017 3:30 PM CST [place] Jaret VALLES L121 (S) Remote PPM Device Check PRINT LINE TAILER: 11% Mode: VVIR Presenting Rhythm: PRINT LINE TAILER Heart Rate: historgram shows heart rates 60 [...] December. No answer, left message with results. KOlson CVT DEVELOPER documented in this encounter Plan of Treatment Upcoming Encounters Date Type Specialty Care Team Description 08/16/2022 Ancillary Procedure Cardiology Timothy Smith MD [address] [place] [id number] (Wo rk) 08/16/2022 Office Visit Cardiology Timothy Smith MD [address] [place] [phone] (Wo rk) documented as of this encounter Procedures Procedure Name Priority Date/Time Associated Diagnosis Comme [facility] Z PM DEVICE Routine 10/22/2017 8:41 AM Cardiac pacemaker in INTERROGATE REMOTE, UP GUI DEVELOPER situ TO 90 DAYS, LEAD/LEADLESS HC INTERR DEVICE EVAL Routine 10/22/2017 Cardiac pacemaker i n REMOTE, PM/LDLS PM/ICD, situ UP TO 90 DAYS documented in this encounter Results INTERROGATION DEVICE EVAL REMOTE, PACER/ICD (00930) (10/22/2017) Narrative This result has an attachment that is no t available. Basil Guadalupe MD PROCEDURES documented in this encounter Visit Diagnoses Diagnosis Cardiac pacemaker in situ - Primary documented in this encounter Care Teams Rn Advanced Relationship Specialty Start Date End Date Graham Licona MD PCP - General Family Practice 04/13/17 01/15/18 [facility] [address] [place] [address] documented as of this encounter
--- OUTSIDE RECORDS SUMMARY | 2022-07-19 08:25 | XMS_ITS | Encounter Summary ---
:1940 Author Organization [place] Address [address] [facility] [place] [address] Care Team Providers Name Role Phone Graham Licona MD Primary Care Provider Reason for Visit Reason Comments Pacemaker Check Alert Encounter Details Date Type Department Care Team Description 06/12/2017 Documentation Only [facility] Lula Pa Pace maker Check Heart Clinic [place] RN (Alert) [address] [facility] [address] [place] [address] Social History Tobacco Use Types Packs/Day Years Used Date Smoking Tobacco: Never Alcohol Use Standard Drinks/Week Comments No 0 (1 standard drink = 0.6 oz pure alcoho l) Sex Assigned at Date Recorded Not on file documented as of this encounter Progress Notes Lula Pa RN - 06/12/2017 2:50 PM CDT [employer] Essentio-Alert for VHR Latitude alert for VT episode occurrence received- EGMs showed RVR response to AF, rates 160-170 bpm, longest lasting 1 minute. Patient is in chronic AF and is on Eliquis. Will continue to monitor. Heide Pa RN documented in this encounter Plan of Treatment Upcoming Encounters Date Type Specialty Care Team Description 08/16/2022 Ancillary Procedure Cardiology Timothy Smith MD [address] [place] [address] (Wo rk) 08/16/2022 Office Visit Cardiology Timothy Smith MD [address] [place] [address] (Wo rk) documented as of this encounter Visit Diagnoses Not on filedocumented in this encounter Care Teams Industrial Furnace Fabricator Relationship Specialty Start Date End Date Graham Licona MD PCP - General Family Practice 04/13/17 01/15/18 [facility] [address] [place] [address] documented as of this encounter
--- OUTSIDE RECORDS SUMMARY | 2022-07-19 08:25 | XMS_ITS | Encounter Summary ---
:1940 Author Organization [place] Address [address] [facility] [place] [address] Care Team Providers Name Role Phone Clinic, [facility] Primary Care Provider [phone] Reason for Visit (Routine) - Closed Specialty Diagnoses / Procedures Referred By Contact Refer red To Contact Cardiology Diagnoses Per Sarah SOB (shortness of breath) Katelynn Cv Echocard Procedures [facility] [address] [address] [place] [address] Phone: Referral ID Status Reason Start Date Expiration Date Visits Requ ested Visits Authorized [id number] Closed 01/17/2018 01/17/2019 1 1 Encounter Details Date Type Department Care Team Description 01/17/2018 Hospital Encounter [place] DallinAnkur Ramirez MD SOB (shortness of CV Echocardiography [address] breath) [id number] [place] [address] [facility] [phone] [place] [address] (Work) [phone] Social History Tobacco Use Types Packs/Day Years [...] 08/16/2022 Ancillary Procedure Cardiology Ankur Smith MD [address] [place] [phone] (Wo rk) 08/16/2022 Office Visit Cardiology Ankur Smith MD [address] [place] [address] (Wo rk) documented as of this encounter [...] AM CDT Narrative 01/17/2018 2:54 PM CDT [id number]^SARAH^ANKUR^ [facility] Heart Echocardiography Laboratory [address] [place] [address] [address] [place] [address] Name: RADHA VILLA : 1940 Study Date: 01/17/2018 09:58 AM Age: 77 yrs Gender: Male Patient Location: [facility] Reason For Study: , SOB (shortness of br eath) History: A-FIB, CABG, PACEMAKER Ordering Physician: ANKUR SMITH Referring Physician: [facility] Performed By: Nabeel Fox [...] note might be different from the original. [id number] [facility] [id number] 268530^SARAH^ANKUR^ [facility] Heart Echocardiography Laboratory [address] [facility] [address] [place], [place] [address] Name: RADHA VILLA : 1940 Study Date: 01/17/2018 09:58 AM Age: 77 yrs Gender: Male Patient Location: [facility] Reason For Study: , SOB (shortness of br eat) History: A-FIB, CABG, PACEMAKER Ordering Physician: ANKUR SMITH Referring Physician: [facility] Performed By: Nabeel Fox [...] dose documented in this encounter Care Teams Design Drafter Relationship Specialty Start Date End Date [facility], [facility] PCP - General 01/16/18 07/01/18 [address] [place] [address] documented as of this encounter
--- OUTSIDE RECORDS SUMMARY | 2022-07-19 08:25 | XMS_ITS | Encounter Summary ---
:1940 Author Organization [place] Address [address] [place] [address] Care Team Providers Name Role Phone Graham Licona MD Primary Care Provider Reason for Visit Reason Comments Pacemaker Check alert for VHR Encounter Details Date Type Department Care Team Description 05/17/2017 Documentation Only [facility] Sergo Vega cemaker Check Heart Clinic [place] Lynne RN (alert for VHR) [address] [facility] [address] [place] [address] Social History Tobacco Use Types Packs/Day Years Used Date Smoking Tobacco: Never Alcohol Use Standard Drinks/Week Comments No 0 (1 standard drink = 0.6 oz pure alcoho l) Sex Assigned at Date Recorded Not on file documented as of this encounter Progress Notes Guera Vega RN - 05/17/2017 1:40 PM CDT [place] PPM. Alert for VHR. Tracings show AF/RVR. Will continue to monitor. Pt on OAC. SueLangenrikkiunnerRN documented in this encounter Plan of Treatment Upcoming Encounters Date Type Specialty Care Team Description 08/16/2022 Ancillary Procedure Cardiology Timothy Smith MD [address] [place] [phone] (Wo rk) 08/16/2022 Office Visit Cardiology Timothy Smith MD [address] [place] [address] (Wo rk) documented as of this encounter Visit Diagnoses Not on filedocumented in this encounter Care Teams Supervisor Pipeline Maintenance Relationship Specialty Start Date End Date Graham Licona MD PCP - General Family Practice 04/13/17 01/15/18 [facility] [address] [place] [address] documented as of this encounter
--- OUTSIDE RECORDS SUMMARY | 2022-07-19 08:25 | XMS_ITS | Encounter Summary ---
:1940 Author Organization [place] Address [address] [facility] [place] [address] Care Team Providers Name Role Phone Graham Licona MD Primary Care Provider Reason for Visit Reason Onset Date Comments Prior Auth - Medication 12/28/2017 apixaban ANTICOA GULANT (ELIQUIS) 5 MG tablet -TIER EXCEPTION approved Encounter Details Date Type Department Care Team Description 12/28/2017 Telephone [facility] Timothy Smith MD Prior Auth - Medication [facility] [place] [address] (apixaban ANTICOAGULANT [address] (ELIQUIS) 5 MG tablet [facility] [address] [place] [address] -TIER EXCEPTION approved [place] [phone] ) Social History Tobacco Use Types Packs/Day [...] Reference #: CMM GALICIA [id number] Insurance Company: 1-800-DOCTORS [phone] Which Pharmacy is filling the prescription (Not needed for infusion/clinic administered): [facility] [address] [place], [place] - [address] [facility] Notified: Yes Patient Notified: No Telephone Encounter - Janette Archer - 01/02/2018 3:58 PM CDT Images from the original note were not included. Central Prior Authorization Team PA Initiation Medication: apixaban ANTICOAGULANT (ELIQUIS) 5 MG tablet -TIER EXCEPTION Insurance Company: [employer] - Pharmacy Filling the Rx: [facility] [address] [facility] [place], [place] - [address] [facility] Filling Pharmacy Start Date: 01/02/2018 Telephone Encounter - Latesha Rider - 12/28/2017 3:03 PM CDT Central Prior Authorization Team Received call from patient. He states his copay is now $590.00 and needs another tier exception. Patient's phone: [phone] documented in this encounter Plan of Treatment Upcoming Encounters Date Type Specialty Care Team Description 08/16/2022 Ancillary Procedure Cardiology Timothy Smith MD [address] [place] [phone] (Wo rk) 08/16/2022 Office Visit Cardiology Timothy Smith MD [address] [place] [phone] (Wo rk) documented as of this encounter Visit Diagnoses Not on filedocumented in this encounter Care Teams Coal Gasification Technician Relationship Specialty Start Date End Date Graham Licona MD PCP - General Family Practice 04/13/17 01/15/18 [facility] [address] [place] [address] documented as of this encounter
--- OUTSIDE RECORDS SUMMARY | 2022-07-19 08:25 | XMS_ITS | Encounter Summary ---
:1940 Author Organization [place] Address [address] [facility] [place] [address] Care Team Providers Name Role Phone Graham Licona MD Primary Care Provider Reason for Visit Reason Onset Date Comments Medication Question 01/04/2018 Eliquis Encounter Details Date Type Department Care Team Description 01/04/[address] [facility] Heart Lacy [place] M edication Question Clinic [place] RN (Eliquis) [address] [facility] [address] [place] [address] Social History Tobacco [...] week supply of Eliquis 5mg placed at credit front office developer of [facility] for pt moss picker. Chu EL Telephone Encounter - Lacy [place] RN - 01/04/2018 1:58 PM CDT Pt LM requesting samples of Eliquis, as he will run out before his medications come in the mail. Will message nurse in [facility] to set out a couple of boxes for pt to moss picker today if possible. Jing documented in this encounter Plan of Treatment Upcoming Encounters Date Type Specialty Care Team Description 08/16/2022 Ancillary Procedure Cardiology Timothy Smith MD [address] [place] [address] (Wo rk) 08/16/2022 Office Visit Cardiology Timothy Smith MD [address] [place] [address] (Wo rk) documented as of this encounter Visit Diagnoses Not on filedocumented in this encounter Care Teams Canary Breeder Relationship Specialty Start Date End Date Graham Licona MD PCP - General Family Practice 04/13/17 01/15/18 [facility] [address] [place] [address] documented as of this encounter
--- OUTSIDE RECORDS SUMMARY | 2022-07-19 08:25 | XMS_ITS | Encounter Summary ---
:1940 Author Organization [place] Address [address] [place] [address] Care Team Providers Name Role Phone Graham Licona MD Primary Care Provider Reason for Visit Reason Onset Date Comments Patient Request 05/08/2017 echo Encounter Details Date Type Department Care Team Description 05/08/2017 Telephone [facility] Heart Lacy [place] P atient Request (echo) Clinic [place] EL [address] [facility] [address] [place] [address] Social History Tobacco Use Types Packs/Day [...] call, Discussed that having the echo at [place] is fine, but would request that echo [...] see if this cost can be reduced. JNelsonDenN Telephone Encounter - Lacy [place] RN - 05/08/2017 11:27 AM CDT Pt called and LM stating that he had seen Dr Licona that told pt that he has water on his heart andwas started on diuretic pills and ordered to have an echo in [place]. Pt wondering if we would want it done up here. Attempted to call pt back but phone on rang and did not go to voice message, willattempt to call later. JNelsonRN documented in this encounter Plan of Treatment Upcoming Encounters Date Type Specialty Care Team Description 08/16/2022 Ancillary Procedure Cardiology Timothy Smith MD [address] [place] [address] (Wo rk) 08/16/2022 Office Visit Cardiology Timothy Smith MD [address] [place] [address] (Wo rk) documented as of this encounter Visit Diagnoses Not on filedocumented in this encounter Care Teams International Marketing Intern Relationship Specialty Start Date End Date Graham Licona MD PCP - General Family Practice 04/13/17 01/15/18 [facility] [address] [place] [address] documented as of this encounter
--- OUTSIDE RECORDS SUMMARY | 2022-07-19 08:25 | XMS_ITS | Encounter Summary ---
:1940 Author Organization [place] Address [address] [facility] [place] [address] Care Team Providers Name Role Phone Graham Licona MD Primary Care Provider Reason for Visit Reason Comments Samples eliquis 5mg Encounter Details Date Type Department Care Team Description 05/14/2017 Care Coordination [facility] Catherine Aranda Sa (eliquis Heart Clinic [place] Crenshaw LPN 5mg) [address] [facility] [address] [place] [address] Social [...] 08/16/2022 Ancillary Procedure Cardiology Timothy Smith MD [address] [place] [address] (Wo rk) 08/16/2022 Office Visit Cardiology Timothy Smith MD [address] [place] [address] (Wo rk) documented as of this encounter Visit Diagnoses Not on filedocumented in this encounter Care Teams Veneer Jointer Returner Relationship Specialty Start Date End Date Graham Licona MD PCP - General Family Practice 04/13/17 01/15/18 [facility] [address] [place] [address] documented as of this encounter
--- OUTSIDE RECORDS SUMMARY | 2022-07-19 08:25 | XMS_ITS | Encounter Summary ---
:1940 Author Organization [place] Address [address] [facility] [place] [address] Care Team Providers Name Role Phone Clinic, [facility] Primary Care Provider [phone] Reason for Referral Diagnostic Imaging XR - Closed Specialty Diagnoses / Procedures Referred By Contact Refer red To Contact Radiology. Diagnoses Persistent atrial fibrillation (H) Timothy Smith MD Rh Xray Procedures XR Chest [address] [place] [address] [address] Phone: Fax: Referral ID Status Reason Start Date Expiration Date Visits Requ ested Visits Authorized [id number] Closed 05/02/2018 05/07/2019 1 1 Reason for Visit Diagnostic Imaging XR - Closed Specialty Diagnoses / Procedures Referred By Contact Refer red To Contact Radiology. Diagnoses Persistent atrial fibrillation (H) Timothy Smith MD Rh Xray Procedures XR Chest [address] [place] [address] [address] Phone: Fax: Referral ID Status Reason Start Date Expiration Date Visits Requ ested Visits Authorized [id number] Closed 05/02/2018 05/07/2019 1 1 Encounter Details Date Type Department Care Team Description 05/02/2018 Hospital Encounter [facility] Timothy Smith MD Persistent atrial [facility] [address] fibrillation (H) [address] [facility] [place] [address] Social History Tobacco Use Types Packs/Day [...] [address] [place] [id number] (Fiorella rk) 08/16/2022 Office Visit Cardiology Timothy Smith MD [address] [place] [phone] (Fiorella olvera) documented as of this encounter [...] fibrillation documented in this encounter Care Teams Car Wash Attendant Relationship Specialty Start Date End Date [facility], [facility] PCP - General 01/16/18 07/01/18 [address] [place] [address] documented as of this encounter
--- OUTSIDE RECORDS SUMMARY | 2022-07-19 08:25 | XMS_ITS | Encounter Summary ---
:1940 Author Organization [place] Address [facility] [place] [address] Care Team Providers Name Role Phone [facility] [place] Primary Care Provider [phone] Encounter Details Date Type Department Care Team Description 02/22/2018 [facility] emic cardiomyopathy Clinic [address] [place] [address] Social History Tobacco Use [...] [address] [place] [address] (Wo rk) 08/16/2022 Office Visit Cardiology Timothy Smith MD [address] [place] [phone] (Wo rk) documented as of this encounter Procedures Procedure Name Priority Date/Time Associated Diagnosis Comme nts BASIC METABOLIC Routine 02/22/2018 9:11 AM Ischemic cardiomyop athy Results for this PANEL CDT procedure are i n the results section. documented in this encounter Results (ABNORMAL) Basic metabolic panel (02/22/2018 9:11 AM CDT) P athologist Signature Sodium 143 133 - 144 02/22/2018 [place] mmol/L 10:15 AM [facility] Potassium 4.2 3.4 - 5.3 02/22/2018 [place] mmol/L 10:15 AM [facility] Chloride 108 94 - 109 02/22/2018 [place] mmol/L 10:15 AM [facility] Carbon Dioxide 30 20 - 32 02/22/2018 [place] mmol/L 10:15 AM [facility] Anion Gap 5 3 - 14 02/22/2018 [place] mmol/L 10:15 AM [facility] Glucose 151 (H) 70 - 99 02/22/2018 [place] mg/dL 10:15 AM [facility] Urea Nitrogen 30 7 - 30 02/22/2018 [place] mg/dL 10:15 AM [facility] Creatinine 1.17 0.66 - 02/22/2018 [place] 1.25 mg/dL 10:15 AM [facility] GFR Estimate 60 (L) >60 02/22/2018 [place] mL/min/1.7 10:[address] Comment: Non GFR Calc GFR Estimate If 73 >60 mL/min/1.7m2 02/22/2018 10:15 AM [facility] Comment: GFR Calc Calcium 9.1 8.5 - 10.1 mg/dL 02/22/2018 10:15 AM [facility] Specimen Anatomical Collection Method Collection Time Receive d Time (Source) Location / / Volume Laterality Blood specimen 02/22/2018 9:11 AM 018 9:17 (specimen) T [facility] Mago Sotomayor APRN GUIDANCE ADVISER LAB - BLOOD ORDERABLES Performing Organization Address City/State/ZIP Code Phon e Number M [facility] [address] [address] [facility] [address] [phone] documented in this encounter Visit Diagnoses Diagnosis Ischemic cardiomyopathy Other specified forms of chronic ischemi c heart disease documented in this encounter Care Teams Motion Study Technician Relationship Specialty Start Date End Date Vinny Reinoso PCP - General 01/16/18 07/01/18 [address] [place] [address] documented as of this encounter
--- OUTSIDE RECORDS SUMMARY | 2022-07-19 08:25 | XMS_ITS | Encounter Summary ---
:1940 Author Organization [place] Address [address] [facility] [place] [address] Care Team Providers Name Role Phone Clinic, [facility] Primary Care Provider [phone] Reason for Referral - Closed Specialty Diagnoses / Procedures Referred By Contact Refer red To Contact Diagnoses Paroxysmal atrial fibrillation (H) Ischemic cardiomyopathy Mago Sotomayor APRN CNP [address] [place] [address] Referral ID Status Reason Start Date Expiration Date Visits Requ ested Visits Authorized [id number] Closed 04/23/2018 04/23/2019 1 1 Reason for Visit Reason Comments Follow Up Holter /Echo - Closed Specialty Diagnoses / Procedures Referred By Contact Refer red To Contact Diagnoses SOB (shortness of breath) Timothy Smith MD [address] [place] [address] Referral ID Status Reason Start Date Expiration Date Visits Requ ested Visits Authorized [id number] Closed 01/23/2018 01/23/2019 1 1 Encounter Details Date Type Department Care Team Description 01/23/2018 Office Visit [facility] Timothy Smith MD [address] [place] [id number] Ischemic cardiomyopathy (Primary Dx); Heart Clinic Mago Kessler, GRADE SETTER INKJET OPERATOR [address] [place] [phone] Paroxysmal atrial fibrillation (H); 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 [place] ordered a repeat echocardiogram to reassess his [...] Angiogram was completed 01/2016. 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 His [...] proceed with cardioversion to see if the orthodoxy of atrial kick helps improve his EF. [...] NP MT: AISHWARYA Name: RADHA VILLA Account: [id number] : 1940 Service Date: 01/23/2018 Document: [id number] Mago Keating APRN CNP - 01/23/2018 11:00 AM CDT HPI and Plan: #[id number] See dictation Orders Placed This Encounter Procedures [...] Psych: Alert and Oriented x 3 CC [facility] [address] [place] [address] documented in this encounter Plan of Treatment Upcoming Encounters Date Type Specialty Care Team Description 08/16/2022 Ancillary Procedure Cardiology Timothy Smith MD [address] [place] [address] (Wo rk) 08/16/2022 Office Visit Cardiology Timothy Smith MD [address] [place] [address] (Wo rk) Scheduled Referrals Name Type Priority Associated Diagnoses Order S chedule Follow-Up with Referral Routine Paroxysmal atrial Expected : Die Cutter Apprentice fibrillation (H) 04/23/2018 Ischemic cardiomyopathy ([place]), Expires: 01/23/2019 documented as of this encounter Results (ABNORMAL) Basic metabolic panel (02/22/2018 9:11 AM CDT) athologist Signature Sodium 143 133 - 144 02/22/2018 [facility] mmol[facility]L 10:15 AM [facility] Potassium 4.2 3.4 - 5.3 02/22/2018 [place] mmol/L 10:15 AM [facility] Chloride 108 94 - 109 02/22/2018 [place] mmol/L 10:15 AM [facility] Carbon Dioxide 30 20 - 32 02/22/2018 [place] mmol/L 10:15 AM [facility] Anion Gap 5 3 - 14 02/22/2018 [place] mmol/L 10:15 AM [facility] Glucose 151 (H) 70 - 99 02/22/2018 [facility] mg/dL 10:15 AM [facility] Urea Nitrogen 30 7 - 30 02/22/2018 [place] mg/dL 10:15 AM [facility] Creatinine 1.17 0.66 - 02/22/2018 [facility] 1.25 mg/dL 10:15 AM [facility] GFR Estimate 60 (L) >60 02/22/2018 [place] mL/min/1.7 10:[address] Comment: Non GFR Calc GFR Estimate If 73 >60 mL/min/1.7m2 02/22/2018 10:15 AM [facility] Comment: GFR Calc Calcium 9.1 8.5 - 10.1 mg/dL 02/22/2018 10:15 AM CDT [facility] Specimen Anatomical Collection Method Collection Time Receive d Time (Source) Location / / Volume Laterality Blood specimen 02/22/2018 9:11 AM 018 9:17 (specimen) CDT AM CDT Mago N Светлана GRADE SETTER INKJET OPERATOR LAB - BLOOD ORDERABLES Performing Organization Address City/State/ZIP Code Phon e Number [place] [address] [address] [place], [place] [address] [facility] [address] [phone] documented in this encounter Visit Diagnoses Diagnosis Ischemic cardiomyopathy - Primary Other specified forms of chronic ischemi c heart disease Paroxysmal atrial fibrillation (H) Atrial fibrillation SOB (shortness of breath) Shortness of breath 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
--- OUTSIDE RECORDS SUMMARY | 2022-07-19 08:25 | XMS_ITS | Encounter Summary ---
:1940 Author Organization [place] Address [facility] [place] [address] Care Team Providers Name Role Phone Clinic, [facility] Primary Care Provider [phone] Reason for Visit Reason Comments Pacemaker Check PPM Latitude NXT Encounter Details Date Type Department Care Team Description 04/24/2018 Allied Health/Nurse [facility] Pac emaker Check (PPM Visit Heart Clinic Patt Latitude NXT) [address] [place] [address] [address] [place] [address] Social History Tobacco Use Types Packs/Day Years Used Date Smoking Tobacco: Never Smokeless Tobacco: Never Alcohol Use Standard Drinks/Week Comments No 0 (1 standard drink = 0.6 oz pure alcoho l) Sex Assigned at Date Recorded Not on file documented as of this encounter Progress Notes Sary Riojas - 04/24/2018 3:30 PM CDT [employer] [facility] EL L121 (S) Remote PPM Device Check CARPET SEWING MACHINE OPERATOR: 26% Mode: VVIR Presenting Rhythm: CARPET SEWING MACHINE OPERATOR & VS Heart Rate: vent rates 60 [...] transmission date over the phone to pt. Mccoy CVT documented in this encounter Plan of Treatment Upcoming Encounters Date Type Specialty Care Team Description 08/16/2022 Ancillary Procedure Cardiology Timothy Smith MD [address] [place] [address] (Wo rk) 08/16/2022 Office Visit Cardiology Timothy Smith MD [address] [place] [address] (Wo rk) documented as of this encounter Procedures Procedure Name Priority Date/Time Associated Diagnosis Comme [facility] Z PM DEVICE Routine 04/24/2018 9:24 AM Cardiac pacemaker in INTERROGATE REMOTE, UP CDT situ TO 90 DAYS, LEAD/LEADLESS HC INTERR DEVICE EVAL Routine 04/24/2018 Cardiac pacemaker i n REMOTE, PM/LDLS PM/ICD, situ UP TO 90 DAYS documented in this encounter Results INTERROGATION DEVICE EVAL REMOTE, PACER/ICD (04206) (04/24/2018) Narrative This result has an attachment that is no t available. Basil Guadalupe MD PROCEDURES documented in this encounter Visit Diagnoses Diagnosis Cardiac pacemaker in situ - Primary documented in this encounter Care Teams Sed High School Teacher Relationship Specialty Start Date End Date [facility], [facility] PCP - General 01/16/18 07/01/18 [address] [place] [address] documented as of this encounter
--- OUTSIDE RECORDS SUMMARY | 2022-07-19 08:25 | XMS_ITS | Encounter Summary ---
:1940 Author Organization [place] Address [address] [facility] [place] [address] Care Team Providers Name Role Phone Graham Licona MD Primary Care Provider Encounter Details Date Type Department Care Team Description 11/14/2017 Documentation Only [facility] Shilpi EL [address] [facility] [address] [place] [address] Social History Tobacco Use Types Packs/Day Years Used Date Smoking Tobacco: Never Alcohol Use Standard Drinks/Week Comments No 0 (1 standard drink = 0.6 oz pure alcoho l) Sex Assigned at Date Recorded Not on file documented as of this encounter Progress Notes Sarina Carty, SIENNA - 11/14/2017 7:36 AM CST Latitude alert [...] coming in for annual check on 01/16. SPowellRN LE HRMS DEVELOPER documented in this encounter Plan of Treatment Upcoming Encounters Date Type Specialty Care Team Description 08/16/2022 Ancillary Procedure Cardiology Timothy Smith MD [address] [place] [address] (Wo rk) 08/16/2022 Office Visit Cardiology Timothy Smith MD [address] [place] [address] (Wo rk) documented as of this encounter Visit Diagnoses Not on filedocumented in this encounter Care Teams Candy Packer Relationship Specialty Start Date End Date Graham Licona MD PCP - General Family Practice 04/13/17 01/15/18 [facility] [address] [place] [address] documented as of this encounter
--- OUTSIDE RECORDS SUMMARY | 2022-07-19 08:25 | XMS_ITS | Encounter Summary ---
:1940 Author Organization [place] Address [address] [place] [address] Care Team Providers Name Role Phone [facility] Primary Care Provider [phone] Reason for Visit (Routine) - Closed Specialty Diagnoses / Procedures Referred By Contact Refer red To Contact Respiratory Therapy Diagnoses 05/01 Dr. Smith wanted patient to get in before the end of the week. Persistent Atrial Fibrillation. Rh Respiratory Ther Procedures PULMONARY FUNCTION TEST [address] [place] [address] Phone: Referral ID Status Reason Start Date Expiration Date Visits Requ ested Visits Authorized [id number] Closed 05/02/2018 05/02/2019 1 1 Encounter Details Date Type Department Care Team Description 05/02/2018 Hospital Encounter [facility] Timothy Smith MD On amiodarone therapy (Primary Dx); [facility] [address] Persis tent atrial fibrillation (H) Therapy [address] [place] [address] [place], [place] [phone] [address] (Work) [phone] Social History Tobacco Use Types Packs/Day Years [...] documented as of this encounter Progress Notes Dellwo, Guera L, RT - 05/02/2018 3:55 PM CDT PFT [...] to this report. REFERRING PHYSICIAN: Timothy Smith CLOTH MERCERIZING SUPERVISOR: Guera Hinojosa DIAGNOSIS: Amiodarone Therapy, Atrial Fibrillation, [...] VAZQUEZ MD MT: TALIA Name: RADHA VILLA Account: [id number] : 1940 Procedure Date: 05/02/2018 Document: [id number] cc: [facility] Timothy Smith MD documented in this encounter Plan of Treatment Upcoming Encounters Date Type Specialty Care Team Description 08/16/2022 Ancillary Procedure Cardiology Timothy Smith MD [address] [facility] [address] [place] [address] (Wo rk) 08/16/2022 Office Visit Cardiology Timothy Smith MD [address] [place] [address] (Wo rk) Scheduled Orders Name Type Priority [...] VAZQUEZ MD MT: TALIA Name: RADHA VILLA Account: [id number] : 1940 Procedure Date: 05/02/20 18 Document: [id number] cc: [facility] Timothy Smith MD Julianna Vazquez MD PFT ORDERABLES Hemoglobin FUTURE anytime (05/02/2018 3:59 PM CDT) athologist Signature Hemoglobin 13.6 13.3 - 17.7 05/02/2018 [facility] g/dL 4:02 PM CDT HOSPITAL Specimen Anatomical Collection Method Collection Time Receive d Time (Source) Location / / Volume Laterality Blood specimen 05/02/2018 3:59 PM 018 4:00 (specimen) CDT PM CDT Timothy Smith MD LAB - BLOOD ORDERABLES Performing Organization Address City/State/ZIP Code Phon e Number [facility] [address] [address] [facility] [address] [phone] General PFT Lab (Please always keep checked) (05/02/2018 3:23 PM CDT) athologist Signature FVC-Pred 3.67 L [place] PFT FVC-Pre 2.49 L [place] PFT FVC-%Pred-Pre 67 % [place] PFT FEV1-Pre 2.03 L [place] PFT FEV1-%Pred-Pre 74 % [place] PFT [id number] 72 % [place] PFT [id number] 81 % [place] PFT FEFMax-Pred 6.90 L/sec [place] PFT FEFMax-Pre 6.78 L/sec [place] PFT FEFMax-%Pred-Pr 98 % [place] PFT e [id number] 1.96 L/sec [place] PFT [id number] 2.06 L/sec [place] PFT [id number]-%Pred-P 105 % [place] PFT re ExpTime-Pre 6.47 sec [place] PFT FIFMax-Pre 5.17 L/sec [place] PFT VC-Pred 4.23 L [place] PFT VC-Pre 2.56 L [place] PFT VC-%Pred-Pre 60 % [place] PFT IC-Pred 4.20 L [place] PFT IC-Pre 2.31 L [place] PFT IC-%Pred-Pre 55 % [place] PFT ERV-Pred 0.03 L [place] PFT ERV-Pre 0.25 L [place] PFT ERV-%Pred-Pre 830 % [place] PFT [id number] 76 % [place] PFT [id number] 81 % [place] PFT FRCPleth-Pred 3.68 L [...] [place] PFT VA-%Pred-Pre 69 % [place] PFT [id number]-Pmnx 65 % [place] PFT [id number]-Rsm 79 % [facility] PFT Specimen (Source) Anatomical Collection Method Collection Time Re ceived Time Location / / Volume Laterality 05/02/2018 3:23 PM CDT Timothy Smith MD PFT ORDERABLES Performing Organization Address City/State/ZIP Code Phon e Number [facility] PFT documented in this encounter Visit Diagnoses Diagnosis On amiodarone therapy - Primary Persistent atrial fibrillation (H) Atrial fibrillation documented in this encounter Care Teams Pest Management Supervisor Relationship Specialty Start Date End Date Kemar, Vinny Jaimes PCP - General 01/16/18 07/01/18 [address] [place] [phone] documented as of this encounter
--- OUTSIDE RECORDS SUMMARY | 2022-07-19 08:25 | XMS_ITS | Encounter Summary ---
:1940 Author Organization [place] Address [facility] [place] [address] Care Team Providers Name Role Phone Graham Licona MD Primary Care Provider Reason for Visit Reason Onset Date Comments Refill Request 08/10/2017 metoprolol Encounter Details Date Type Department Care Team Description 08/10/2017 Refill [facility] Heart Zarina Smith MD Refill Request Clinic [facility] [address] (metoprolol) [id number] [place] [address] [place] [phone] [phone] Social History Tobacco Use Types Packs/Day Years [...] [address] [place] [address] (Wo rk) 08/16/2022 Office Visit Cardiology Timothy Smith MD [address] [place] [address] (Wo rk) documented as of this encounter Visit Diagnoses Diagnosis PAF (paroxysmal atrial fibrillation) (H) Atrial fibrillation documented in this encounter Care Teams Supervisor [place] Relationship Specialty Start Date End Date Graham Licona MD PCP - General Family Practice 04/13/17 01/15/18 [facility]ICAL [facility] [address] [place] [address] documented as of this encounter
--- OUTSIDE RECORDS SUMMARY | 2022-07-19 08:25 | XMS_ITS | Encounter Summary ---
:1940 Author Organization [place] Address [address] [facility] [place] [address] Care Team Providers Name Role Phone Graham Licona MD Primary Care Provider Reason for Visit Reason Comments Pacemaker Check Clinic Care Coordination - Follow-up Encounter Details Date Type Department Care Team Description 08/13/2017 Documentation Only [facility] Sergo Vega Check; Heart Clinic Patt Lynne RN Clinic Care [address] [place] [address] [address] [place] [address] Social History Tobacco [...] after discussing with Dr Smith. Note routed; SueLangenbrunnerRN 1300: call to pt; per Dr Smith, he is to STOP the Losartan and increase the Metoprolol Succ from 50mg QD to 100mg QD. He will begin this change tomorrow AM. I spoke with his ; if he has any questions he can call the clinic. Abe CAL DATA ANALYST documented in this encounter Plan of Treatment Upcoming Encounters Date Type Specialty Care Team Description 08/16/2022 Ancillary Procedure Cardiology Timothy Smith MD [address] [place] [address] (Wo rk) 08/16/2022 Office Visit Cardiology Timothy Smith MD [address] [place] [address] (Wo rk) documented as of this encounter Visit Diagnoses Not on filedocumented in this encounter Care Teams Welfare Aide Relationship Specialty Start Date End Date Graham Licona MD PCP - General Family Practice 04/13/17 01/15/18 [facility] [address] [place] [address] documented as of this encounter
--- OUTSIDE RECORDS SUMMARY | 2022-07-19 08:25 | XMS_ITS | Encounter Summary ---
:1940 Author Organization [place] Address [facility] [place] [address] Care Team Providers Name Role Phone Clinic, [facility] Primary Care Provider [phone] Reason for Referral CV Testing - Closed Specialty Diagnoses / Procedures Referred By Contact Refer red To Contact Cardiology Diagnoses SOB (shortness of breath) Timothy Smith MD Zzdomitila Cardiac Test [facility] Procedures Holter Monitor 24 hour - Adult [address] [address] [place] [address] [address] [place] [address] Phone: Fax: Referral ID Status Reason Start Date Expiration Date Visits Requ ested Visits Authorized [id number] Closed 01/17/2018 01/23/2019 1 1 Reason for Visit CV Testing - Closed Specialty Diagnoses / Procedures Referred By Contact Refer red To Contact Cardiology Diagnoses SOB (shortness of breath) Timothy Smith MD Zzrh Cardiac Test Rs Procedures Holter Monitor 24 hour - Adult [address] [address] [place] [address] [address] [place] [address] Phone: Fax: Referral ID Status Reason Start Date Expiration Date Visits Requ ested Visits Authorized [id number] Closed 01/17/2018 01/23/2019 1 1 Encounter Details Date Type Department Care Team Description 01/21/2018 Hospital Encounter [place] [facility] Timothy Smith MD SOB ([facility] [address] breath) [address] [facility] [address] [place] [address] [place] [phone] [address] (Work) [phone] Social History Tobacco Use Types Packs/Day Years [...] [address] [place] [address] (Wo rk) 08/16/2022 Office Visit Cardiology Timothy Smith MD [address] [place] [address] (Wo rk) documented as of this encounter Procedures Procedure Name Priority Date/Time Associated Diagnosis Comme nts HOLTER MONITOR 24 Routine 01/21/2018 10:09 AM SOB (shortness o f Results for this HOUR - ADULT CDT breath) procedure are i n the results section. documented in this encounter Results Holter Monitor 24 hour - Adult (01/21/2018 10:09 AM CDT) [facility] gist Method Time Signature Interpretation Click View RADIOLOGY Lead Refiner Image link RESULTS to view waveform and [...] breath documented in this encounter Care Teams College [employer] Department Head Relationship Specialty Start Date End Date Clinic, Vinny Jaimes PCP - General 01/16/18 07/01/18 [address] [place] [address] documented as of this encounter
--- OUTSIDE RECORDS SUMMARY | 2022-07-19 08:25 | XMS_ITS | Encounter Summary ---
:1940 Author Organization [place] Address [facility] [place] [address] Care Team Providers Name Role Phone Graham Licona MD Primary Care Provider Reason for Visit Reason Onset Date Comments Refill Request 05/07/2017 Encounter Details Date Type Department Care Team Description 05/07/2017 Refill [facility] Selena Reynoso RN Refill Request [facility] [address] [facility] [address] [place] [phone] Social History Tobacco Use Types Packs/Day Years [...] [address] [place] [address] (Wo rk) 08/16/2022 Office Visit Cardiology Timothy Smith MD [address] [place] [phone] (Wo rk) documented as of this encounter Visit Diagnoses Diagnosis PAF (paroxysmal atrial fibrillation) (H) - Primary Atrial fibrillation documented in this encounter Care Teams Locum Tenens Relationship Specialty Start Date End Date Graham Licona MD PCP - General Family Practice 04/13/17 01/15/18 [facility] [address] [place] [address] documented as of this encounter
--- OUTSIDE RECORDS SUMMARY | 2022-07-19 08:25 | XMS_ITS | Encounter Summary ---
:1940 Author Organization [place] Address [address] [facility] [place] [address] Care Team Providers Name Role Phone Graham Licona MD Primary Care Provider Reason for Visit Reason Onset Date Comments Prior Auth - Medication 05/10/2017 apixaban ANTICOA GULANT (ELIQUIS) 5 MG tablet - Tier Exception Appro chikis Encounter Details Date Type Department Care Team Description 05/10/2017 Telephone [facility] Timothy Smith MD Prior Auth - Medication Heart Clinic [place] [address] (apixaban ANTICOAGULANT [address] (ELIQUIS) 5 MG tablet - [facility] [address] [place], [place] [address] Tier Exception Approved) [place] [phone] Social History Tobacco Use Types Packs/Day Years [...] Exception Approved Approved Dose/Quantity: Reference #: Insurance Noom: [employer] [phone] Expected CoPay: $1.00 patient p/u meds on 05/23/17 CoPay Card Available: Foundation Assistance Needed: Which Pharmacy is filling the prescription (Not needed for infusion/clinic administered): [facility] [address] [place], [place] - [address] [facility] Pharmacy Notified: Yes Patient Notified: Yes Telephone Encounter - Yareli Tamez - 05/28/2017 9:30 AM CDT Images from the original note were not included. Telephone Encounter - Yareli Tamez - 05/16/2017 11:28 AM CDT Images from the original note were not included. [facility] [place] [facility] Prior Authorization Team Tier Exception Initiation Medication: apixaban ANTICOAGULANT (ELIQUIS) 5 MG tablet Insurance Company: [employer] - Pharmacy Filling the Rx: [facility] [address] [place] [phone] [facility] Filling Pharmacy Filling Pharmacy Fax: Start Date: 05/16/2017 documented in this encounter Plan of Treatment Upcoming Encounters Date Type Specialty Care Team Description 08/16/2022 Ancillary Procedure Cardiology Timothy Smith MD [address] [place] [address] (Wo rk) 08/16/2022 Office Visit Cardiology Timothy Smith MD [address] [place] [address] (Wo rk) documented as of this encounter Visit Diagnoses Not on filedocumented in this encounter Care Teams Police Captain Precinct Relationship Specialty Start Date End Date Graham Licona MD PCP - General Family Practice 04/13/17 01/15/18 [facility]ICAL [facility] [address] [place] [address] documented as of this encounter
--- OUTSIDE RECORDS SUMMARY | 2022-07-19 08:25 | XMS_ITS | Encounter Summary ---
:1940 Author Organization [place] Address [facility] [place] [address] Care Team Providers Name Role Phone Graham Licona MD Primary Care Provider Reason for Visit Reason Onset Date Comments Refill Request 05/25/2017 eliquis Encounter Details Date Type Department Care Team Description 05/25/2017 Refill [facility] Heart Zarina Smith MD Refill Request (eliquis) [facility] [place] [address] [id number] [place] [address] [place] [phone] [phone] Social History Tobacco Use Types Packs/Day Years [...] [address] [place] [address] (Wo rk) 08/16/2022 Office Visit Cardiology Timothy Smith MD [address] [place] [phone] (Wo rk) documented as of this encounter Visit Diagnoses Diagnosis Paroxysmal atrial fibrillation (H) Atrial fibrillation documented in this encounter Care Teams Clam Grower Relationship Specialty Start Date End Date Graham Licona MD PCP - General Family Practice 04/13/17 01/15/18 [facility] [address] [place] [address] documented as of this encounter
--- OUTSIDE RECORDS SUMMARY | 2022-07-19 08:25 | XMS_ITS | Encounter Summary ---
:1940 Author Organization [place] Address Counts include [facility] beds at the [facility] [place] [address] Care Team Providers Name Role Phone Clinic, [facility] Primary Care Provider [phone] Reason for Visit CV Testing - Closed Specialty Diagnoses / Procedures Referred By Contact Refer red To Contact Cardiology Diagnoses Paroxysmal atrial fibrillation (H) Ischemic cardiomyopathy Mago Sotomayor, FLACO CONSUMER SALES REPRESENTATIVE Zz Cv Echocard Procedures ECHO COMPLETE WITH OPTISON Echocardiogram [address] [facility] [place] [address] [facility] [address] [place] [phone] Phone: Referral ID Status Reason Start Date Expiration Date Visits Requ ested Visits Authorized [id number] Closed 04/23/2018 04/23/2019 1 1 Encounter Details Date Type Department Care Team Description 04/30/2018 Hospital Encounter [place] Mago Mina, P aroxysmal atrial fibrillation (H); CV Echocardiography RN CLINICAL QUALITYEvaristo ROLLE Ischemic cardiomyopathy [address] [facility] [address] S [...] [address] [place] [address] (Wo rk) 08/16/2022 Office Visit Cardiology Timothy Smith MD [address] [place] [address] (Wo rk) documented as of this encounter [...] AM CDT Narrative 04/30/2018 1:50 PM CDT [id number] [facility] [id number]^RESHMA^MAGO^N [facility] Ech[facility] Laboratory [address] [facility] [address] [place] [address] Name: RADHA VILLA : 1940 Study Date: [...] note might be different from the original. [id number] [facility] [id number]^RESHMA^MAGO^Evaristo [facility] Heart Echocardiography Laboratory [address] [facility] [address] [place] [address] Name: RADHA VILLA : 1940 Study Date: [...] Pop Pham 04/30/2018 01:50 PM Mago Sotomayor RN CLINICAL QUALITY CONSUMER SALES REPRESENTATIVE CV ECHO ORDERABLES documented in this encounter [...] On Sun04/30/18 at 1200, For 1 dose, [facility] [id number] documented in this encounter Care Teams Hearing Healthcare Practitioner Relationship Specialty Start Date End Date [facility], Vinny Jaimes PCP - General 01/16/18 07/01/18 [address] [place] [address] documented as of this encounter
--- OUTSIDE RECORDS SUMMARY | 2022-07-19 08:25 | XMS_ITS | Encounter Summary ---
:1940 Author Organization [place] Address [facility] [place] [address] Care Team Providers Name Role Phone [facility] [place] Primary Care Provider [phone] Encounter Details Date Type Department Care Team Description 04/30/2018 Orders Only [facility], Lidya Crenshaw Per sistent atrial Respiratory Therapy fibrillation (H) (Primary [address] [place]x) [place] [address] Social History Tobacco Use Types Packs/Day [...] [address] [place] [address] (Wo rk) 08/16/2022 Office Visit Cardiology Timothy Smith MD [address] [place] [id number] (Wo rk) Scheduled Orders Name Type Priority [...] [facility] PFT FEV1-%Pred-Pre 74 % [facility] PFT [id number]-Ruvf 72 % [place] PFT [id number] 81 % [place] PFT FEFMax-Pred 6.90 L/sec [place] PFT FEFMax-Pre 6.78 L/sec [place] PFT FEFMax-%Pred-Pr 98 % [place] PFT e [id number] 1.96 L/sec [place] PFT [id number] 2.06 L/sec [place] PFT [id number]-%Pred-P 105 % [place] PFT re ExpTime-Pre 6.47 sec [place] PFT FIFMax-Pre 5.17 L/sec [place] PFT VC-Pred 4.23 L [place] PFT VC-Pre 2.56 L [place] PFT VC-%Pred-Pre 60 % [place] PFT IC-Pred 4.20 L [place] PFT IC-Pre 2.31 L [place] PFT IC-%Pred-Pre 55 % [place] PFT ERV-Pred 0.03 L [place] PFT ERV-Pre 0.25 L [place] PFT ERV-%Pred-Pre 830 % [place] PFT [id number] 76 % [place] PFT [id number]-[id number] 81 % [place] PFT FRCPleth-Pred 3.68 L [...] [place] PFT VA-%Pred-Pre 69 % [place] PFT [id number]-Fecg 65 % [place] PFT [id number]-Vpi 79 % [facility] PFT Specimen (Source) Anatomical Collection Method Collection Time Re ceived Time Location / / Volume Laterality 05/02/2018 3:23 PM CDT Timothy Smith MD PFT ORDERABLES Performing Organization Address City/State/ZIP Code Phon e Number [facility] PFT documented in this encounter Visit Diagnoses Diagnosis Persistent atrial fibrillation (H) - Ria jing Atrial fibrillation documented in this encounter Care Teams Mink Rancher Relationship Specialty Start Date End Date [facility] - General 01/16/18 07/01/18 [address] [place] [address] documented as of this encounter
--- OUTSIDE RECORDS SUMMARY | 2022-07-19 08:25 | XMS_ITS | Encounter Summary ---
:1940 Author Organization [place] Address [facility] [place] [address] Care Team Providers Name Role Phone Graham Licona MD Primary Care Provider Reason for Visit Reason Onset Date Comments Refill Request 10/08/2017 dose of metoprolol i ncreased to 100mg daily, succinate Encounter Details Date Type Department Care Team Description 10/08/2017 Refill [facility] Heart Zarina Smith MD Refill Request (dose of [facility] [place] [address] metoprolol increased to [address] 100mg daily, succinate) [address] [place] [address] [place] [phone] Social History Tobacco Use Types Packs/Day Years [...] [address] [place] [phone] (Wo rk) 08/16/2022 Office Visit Cardiology Timothy Smith MD [address] [place] [phone] (Wo rk) documented as of this encounter Visit Diagnoses Diagnosis Palpitations - Primary documented in this encounter Care Teams Set Up / Operator Relationship Specialty Start Date End Date Graham Licona MD PCP - General Family Practice 04/13/17 01/15/18 [facility] [address] [place] [address] documented as of this encounter
--- OUTSIDE RECORDS SUMMARY | 2022-07-19 08:25 | XMS_ITS | Encounter Summary ---
:1940 Author Organization [place] Address [facility] [place] [address] Care Team Providers Name Role Phone Graham Licona MD Primary Care Provider Reason for Visit Reason Onset Date Comments Refill Request 05/23/2017 pt was granted tier acception for eliquis Encounter Details Date Type Department Care Team Description 05/23/2017 Refill [facility] Heart Zarina Smith MD Refill Request (pt was Clinic [place] [address] granted tier acception [address] [facility] [address] for eliquis) [address] [place] [address] [place] [phone] [phone] Social History Tobacco Use Types Packs/Day Years Used Date Smoking Tobacco: Never Alcohol Use Standard Drinks/Week Comments No 0 (1 standard drink = 0.6 oz pure alcoho l) Sex Assigned at Date Recorded Not on file documented as of this encounter Plan of Treatment Upcoming Encounters Date Type Specialty Care Team Description 08/16/2022 Ancillary Procedure Cardiology Timothy Smith MD [address] [place] [phone] (Wo rk) 08/16/2022 Office Visit Cardiology Timothy Smith MD [address] [place] [phone] (Wo rk) documented as of this encounter Visit Diagnoses Diagnosis Paroxysmal atrial fibrillation (H) Atrial fibrillation documented in this encounter Care Teams Plastic Surgeon Relationship Specialty Start Date End Date Graham Licona MD PCP - General Family Practice 04/13/17 01/15/18 [facility] [address] [place] [address] documented as of this encounter
--- OUTSIDE RECORDS SUMMARY | 2022-07-19 08:25 | XMS_ITS | Encounter Summary ---
:1940 Author Organization [place] Address [facility] [place] [address] Care Team Providers Name Role Phone Clinic, [facility] Primary Care Provider [phone] Reason for Referral - Closed Specialty Diagnoses / Procedures Referred By Contact Refer red To Contact Diagnoses Atrial fibrillation (H) [facility] [address] [facility] [address] [place] [address] Referral ID Status Reason Start Date Expiration Date Visits Requ ested Visits Authorized [id number] Closed 04/25/2018 04/25/2019 1 1 Reason for Visit Reason Onset Date Comments Clinic Care Coordination - Follow-up 01/24/2018 Encounter Details Date Type Department Care Team Description 01/24/2018 Telephone [facility] Aravind Fierro [facility] [place] Vital RN Coordination - [address] [facility] Follow-up [facility] [address] [place] [address] Social History Tobacco Use Types Packs/Day [...] [address] [place] [phone] (Fiorella olvera) 08/16/2022 Office Visit Cardiology Timothy Smith MD [address] [place] [address] (Fiorella olvera) Scheduled Referrals Name Type Priority Associated Diagnoses Order S chedule Follow-Up with Referral Routine Atrial fibrillation Expect ed: Injection Molding Technician (H) 04/25/20 18 (Approximate), Expires: 01/24/2020 documented as of this encounter Visit Diagnoses Diagnosis Atrial fibrillation (H) - Primary Atrial fibrillation documented in this encounter Care Teams Supervisor Lace Tearing Relationship Specialty Start Date End Date Clinic, [facility] PCP - General 01/16/18 07/01/18 [address] [place] [address] documented as of this encounter
--- OUTSIDE RECORDS SUMMARY | 2022-07-19 08:25 | XMS_ITS | Encounter Summary ---
:1940 Author Organization [place] Address [facility] [place] [address] Care Team Providers Name Role Phone Clinic, [facility] Primary Care Provider [phone] Reason for Visit Reason Comments Pacemaker Check Annual Threshold Check Encounter Details Date Type Department Care Team Description 01/16/2018 [facility] Pac emaker Check (Annual Visit Heart [facility] [place] Threshold Check) [address] [place] [address] [address] [place] [phone] Social History Tobacco Use Types Packs/Day Years Used Date Smoking Tobacco: Never Smokeless Tobacco: Never Alcohol Use Standard Drinks/Week Comments No 0 (1 standard drink = 0.6 oz pure alcoho l) Sex Assigned at Date Recorded Not on file documented as of this encounter Progress Notes Lula Pa RN - 01/16/2018 11:00 AM CDT [employer] EL L121 Pacemaker Device Check AP: o % DAYCARE ASSISTANT: 14 % Mode: VVIR 60-130 bpm Underlying [...] [address] [place] [address] (Wo rk) 08/16/2022 Office Visit Cardiology Timothy Smith MD [address] [place] [address] (Wo rk) documented as of this encounter Procedures Procedure Name Priority Date/Time Associated Diagnosis Comme nts HC PM DEVICE PROGRAMMING EVAL, Routine 01/16/2018 Cardiac pa cemaker in situ DUAL LEAD PACER documented in this encounter Results PM DEVICE PROGRAMMING EVAL, DUAL LEAD PACER (08255) (01/16/2018) Narrative This result has an attachment that is no t available. Timothy Smith MD PROCEDURES documented in this encounter Visit Diagnoses Diagnosis Cardiac pacemaker in situ - Primary documented in this encounter Care Teams Room Service Waiter/Waitress Relationship Specialty Start Date End Date Clinic, Vinny Jaimes PCP - General 01/16/18 07/01/18 [address] [place] [address] documented as of this encounter
--- OUTSIDE RECORDS SUMMARY | 2022-07-19 08:25 | XMS_ITS | Encounter Summary ---
:1940 Author Organization [place] Address [facility] [place] [address] Care Team Providers Name Role Phone Clinic, [facility] Primary Care Provider [phone] Reason for Referral - Closed Specialty Diagnoses / Procedures Referred By Contact Refer red To Contact Diagnoses Persistent atrial fibrillation (H) Ankur Smith MD [address] [place] [address] Referral ID Status Reason Start Date Expiration Date Visits Requ ested Visits Authorized [id number] Closed 07/04/2018 07/04/2019 1 1 iagnostic Imaging XR - Closed Specialty Diagnoses / Procedures Referred By Contact Refer red To Contact Radiology. Diagnoses Persistent atrial fibrillation (H) Ankur Smith MD Rh Xray Procedures XR Chest [address] [place] [address] [place] [address] Phone: Fax: Referral ID Status Reason Start Date Expiration Date Visits Requ ested Visits Authorized [id number] Closed 05/02/2018 05/07/2019 1 1 V Testing - Closed Specialty Diagnoses / Procedures Referred By Contact Refer red To Contact Diagnoses Persistent atrial fibrillation (H) Ankur Smith MD Procedures Cardioversion [address] [place] [address] Referral ID Status Reason Start Date Expiration Date Visits Requ ested Visits Authorized [id number] Closed 05/07/2018 05/07/2019 1 1 Reason for Visit Reason Comments Results echo for review - Closed Specialty Diagnoses / Procedures Referred By Contact Refer red To Contact Diagnoses Paroxysmal atrial fibrillation (H) Ischemic cardiomyopathy Mago Sotomayor, FLACO STORE CLERK [address] [place] [phone] Referral ID Status Reason Start Date Expiration Date Visits Requ ested Visits Authorized [id number] Closed 04/23/2018 04/23/2019 1 1 Encounter Details Date Type Department Care Team Description 04/30/2018 Office Visit [facility] Mago Sotomayor, FLACO STORE CLERK [address] [place] [phone] Persistent atrial fibrillation (H) (Prim arnie Dx); Heart Clinic Ankur Beauchamp MD [address] [place] [address] Paroxysmal atrial fibrillation (H); [address] [facility] Ischemic cardiomyopathy South [address] [place] [phone] Social History Tobacco Use Types Packs/Day Years [...] patient will have baseline amiodarone testing in [place]. cc: [address] [address] ANKUR SMITH MD MT: MANDIE Name: RADHA VILLA Account: [id number] : 1940 Service Date: 04/30/2018 Document: [id number] Ankur Smith MD - 04/30/2018 2:15 PM CDT HPI and Plan: See dictation Orders Placed This Encounter Procedures ??? XR Chest 1 View ??? Basic metabolic panel ??? Hepatic panel ??? TSH ??? Follow-Up with Sanding Supervisor ??? EKG 12-lead complete w/read (Future)- to [...] Muscular Skeletal: Neurological: Psych: CC Mago Keating, SCOURING TRAIN OPERATOR CHIEF STORE CLERK [address] [facility] [address] [place] [address] Ankur Smith MD - 04/30/2018 2:15 PM CDT HPI and Plan: See dictation Orders Placed This Encounter Procedures ??? XR Chest 1 View ??? Basic metabolic panel ??? Hepatic panel ??? TSH ??? Follow-Up with Sanding Supervisor ??? EKG 12-lead complete w/read (Future)- to [...] Muscular Skeletal: Neurological: Psych: CC Mago Keating, SCOURING TRAIN OPERATOR CHIEF STORE CLERK [address] [place] [address] documented in this encounter Plan of Treatment Upcoming Encounters Date Type Specialty Care Team Description 08/16/2022 Ancillary Procedure Cardiology Ankur Smith MD [address] [place] [address] (Wo rk) 08/16/2022 Office Visit Cardiology Ankur Smith MD [address] [place], [place] [address] (Wo rk) Scheduled Orders Name Type Priority Associated Diagnoses Order S chedule Cardioversion Echocardiography Routine Persistent atrial Expec star: 05/07/2018 fibrillation (H) (Approximat e), Expires: 2018 Scheduled Referrals Name Type Priority Associated Diagnoses Order S chedule Follow-Up with Referral Routine Persistent atrial Expected : Sanding Supervisor fibrillation (H) 12/2017 (Approximate), Expires: 04/30/2019 documented as of this encounter Results EKG 12-lead complete w/read (Future)- to be scheduled (07/02/2018 9:53 AM CDT) Narrative This result has an attachment that is no t available. Ankur Smith MD ECG ORDERABLES TSH (05/03/2018 9:58 AM CDT) P athologist Signature TSH 3.79 0.40 - 4.00 05/03/2018 [facility] mU/L 10:39 AM CDT HOSPITAL Specimen Anatomical Collection Method Collection Time Receive d Time (Source) Location / / Volume Laterality Blood specimen 05/03/2018 9:58 AM 018 9:59 (specimen) CDT AM CDT Ankur Smith MD LAB - BLOOD ORDERABLES Performing Organization Address [facility]/Va Hospital/ZIP [facility] Phon e Number Karey [facility] [address] [place], [place] [address] [facility] [address] [place], [place] [address], [facility] [phone] (ABNORMAL) Hepatic panel (05/03/2018 9:58 AM CDT) Analysis Performed At Patho logist Time Signature Bilirubin Direct 0.4 (H) 0.0 - 0.2 05/03/2018 [place] mg/dL 10:33 AM [facility] Bilirubin Total 1.0 0.2 - 1.3 05/03/2018 [place] mg/dL 10:33 AM [facility] Albumin 3.7 3.4 - 5.0 05/03/2018 [place] g/dL 10:33 AM [facility] Protein Total 7.9 6.8 - 8.8 05/03/2018 [place] g/dL 10:33 AM [facility] Alkaline 29 (L) 40 - 150 05/03/2018 [place] Phosphatase U/L 10:33 AM [facility] ALT 31 0 - 70 U/L 05/03/2018 [place] 10:33 AM [facility] AST 25 0 - 45 U/L 05/03/2018 [place] 10:33 AM [facility] Specimen Anatomical Collection Method Collection Time Receive d Time (Source) Location / / Volume Laterality Blood specimen 05/03/2018 9:58 AM 018 9:59 (specimen) CDT AM T Ankur Smith MD LAB - BLOOD ORDERABLES Performing Organization Address [facility]/Va Hospital/[facility] Phon e Daniel Eden [facility] [address] [place], [place] [address] [facility] [address] [place], [place] [address] [phone] (ABNORMAL) Basic metabolic panel (05/03/2018 9:58 AM CDT) P athologist Signature Sodium 138 133 - 144 05/03/2018 [place] mmol/L 10:33 AM [facility] Potassium 4.5 3.4 - 5.3 05/03/2018 [place] mmol/L 10:33 AM [facility] Chloride 100 94 - 109 05/03/2018 [place] mmol/L 10:33 AM [facility] Carbon Dioxide 31 20 - 32 05/03/2018 [place] mmol/L 10:33 AM [facility] Anion Gap 7 3 - 14 05/03/2018 [place] mmol/L 10:33 AM [facility] Glucose 150 (H) 70 - 99 05/03/2018 [place] mg/dL 10:33 AM [facility] Urea Nitrogen 34 (H) 7 - 30 05/03/2018 [place] mg/dL 10:33 AM [facility] Creatinine 1.25 0.66 - 05/03/2018 [place] 1.25 mg/dL 10:33 AM [facility] GFR Estimate 56 (L) >60 05/03/2018 [place] mL/min/1.7 10:[address] Comment: Non GFR Calc GFR Estimate If 67 >60 mL/min/1.7m2 05/03/2018 10:33 AM [facility] Comment: GFR Calc Calcium 9.2 8.5 - 10.1 mg/dL 05/03/2018 10:33 AM [facility] Specimen Anatomical Collection Method Collection Time Receive d Time (Source) Location / / Volume Laterality Blood specimen 05/03/2018 9:58 AM 018 9:59 (specimen) CDT AM CDT Ankur Smith MD LAB - BLOOD ORDERABLES Performing Organization Address City/State/ZIP Code Phon e Number M [facility] [address] [place], [place] [address] [facility] [address] [phone] XR Chest 1 View (05/02/2018 4:14 PM [...] Persistent atrial fibrillation (H) - [facility] Atrial fibrillation Paroxysmal atrial fibrillation (H) Atrial fibrillation Ischemic cardiomyopathy Other specified forms of chronic ischemi c heart disease Persistent atrial fibrillation (H) Atrial fibrillation documented in this encounter Care Teams Back Up Machine Operator Relationship Specialty Start Date End Date [facility], Vinny Jaimes PCP - General 01/16/18 07/01/18 [address] [place] [phone] documented as of this encounter
--- OUTSIDE RECORDS SUMMARY | 2022-07-19 08:25 | XMS_ITS | Encounter Summary ---
:1940 Author Organization [place] Address [facility] [place] [address] Care Team Providers Name Role Phone Clinic, [facility] Primary Care Provider [phone] Reason for Referral - Closed Specialty Diagnoses / Procedures Referred By Contact Refer red To Contact Diagnoses SOB (shortness of breath) Ankur Smith MD [address] [place] [address] Referral ID Status Reason Start Date Expiration Date Visits Requ ested Visits Authorized [id number] Closed 01/23/2018 01/23/2019 1 1 V Testing - Closed Specialty Diagnoses / Procedures Referred By Contact Refer red To Contact Cardiology Diagnoses SOB (shortness of breath) Ankur Smith MD [facility] Procedures Holter Monitor 24 hour - Adult [address] [employer] [address] [address] [place] [address] [address] [place] [address] Phone: Fax: Referral ID Status Reason Start Date Expiration Date Visits Requ ested Visits Authorized [id number] Closed 01/17/2018 01/23/2019 1 1 Reason for Visit Reason Comments Annual Visit f/u OV for AF - Closed Specialty Diagnoses / Procedures Referred By Contact Refer red To Contact Diagnoses Typical atrial flutter (H) Ankur Smith MD [address] [place] [address] Referral ID Status Reason Start Date Expiration Date Visits Requ ested Visits Authorized [id number] Closed 12/19/2017 12/19/2018 1 1 Encounter Details Date Type Department Care Team Description 01/16/2018 Office Visit [facility] Ankur Smith MD SOB (shortness of breath) (Primary Dx); [facility] [place] [address] Typical atrial flutter (H) [address] [facility] [address] [facility] [address] [place] [address] [place] [phone] Social History Tobacco Use Types Packs/Day Years [...] followup of atrial fibrillation. He is a [id number] male who had a pacemaker implanted for [...] MD MT: AISHWARYA Name: RADHA VILLA Account: [id number] : 1940 Service Date: 01/16/2018 Document: [id number] Ankur Smith MD - 01/16/2018 9:45 AM [...] MD [address] [place] [address] documented in this encounter Plan of Treatment Upcoming Encounters Date Type Specialty Care Team Description 08/16/2022 Ancillary Procedure Cardiology Ankur Smith MD [address] [place] [address] (Wo rk) 08/16/2022 Office Visit Cardiology Ankur Smith MD [address] [place] [address] (Wo rk) Scheduled Referrals Name Type Priority [...] [facility] mmol/L 10:46 AM CDT [facility] A Potassium 4.4 3.5 - 5.1 01/23/2018 [facility] mmol/L 10:46 AM CDT [facility] Chloride 101 98 - 107 01/23/2018 [facility] mmol/L 10:46 AM CDT [facility] Carbon Dioxide 29 23 - 29 01/23/2018 [facility] mmol/L 10:46 AM T [facility] Anion Gap 15.4 6 - 17 01/23/2018 [facility] mmol/L 10:46 AM CDT [facility] Glucose 152 (H) 70 - 105 01/23/2018 [facility] mg/dL 10:46 AM CDT [facility] Urea Nitrogen 27 7 - 30 01/23/2018 [facility] mg/dL 10:46 AM T [facility] Creatinine 1.27 0.70 - 01/23/2018 [facility] 1.30 mg/dL 10:46 AM CDT [facility] GFR Estimate 55 (L) >60 01/23/2018 [facility] mL/min/1.7 10:46 AM CDT [facility] m2 A GFR Estimate If 66 >60 01/23/2018 [facility] Black mL/min/1.7 10:46 AM CDT [facility] m2 A Calcium 10.1 8.5 - 10.5 01/23/2018 [facility] mg/dL 10:46 AM CDT [facility] A Specimen Anatomical Collection Method Collection Time Receive d Time (Source) Location / / Volume Laterality Blood specimen 01/23/2018 9:50 AM 018 9:51 (specimen) CDT AM CDT Ankur Smith MD LAB - BLOOD ORDERABLES Performing Organization Address City/State/ZIP Code Phon e Number [facility] [address] [place] [address] [address] Holter Monitor 24 hour - Adult (01/21/2018 10:09 AM CDT) [facility] Method Time Signature Interpretation Click View RADIOLOGY Test Grader Image link RESULTS to view waveform and [...] flutter documented in this encounter Care Teams Clinching Machine Operator Relationship Specialty Start Date End Date [facility], Vinny Jaimes PCP - General 01/16/18 07/01/18 [address] [place] [phone] documented as of this encounter
--- OUTSIDE RECORDS SUMMARY | 2022-07-19 08:25 | XMS_ITS | Encounter Summary ---
:1940 Author Organization [place] Address [facility]0 [facility] [place] [address] Care Team Providers Name Role Phone Graham Licona MD Primary Care Provider Reason for Visit Reason Onset Date Comments Refill Request 08/13/2017 Encounter Details Date Type Department Care Team Description 08/13/2017 Refill [facility] Heart Zarina Smith MD Refill Request Clinic [place] [address] [place] [address] [facility] [address] [place] [phone] [phone] Social History Tobacco Use Types Packs/Day Years [...] Smith MD [address] [place] [address] (Wo rk) 08/16/2022 Office Visit Cardiology Timothy Smith MD [address] [place] [address] (Wo rk) documented as of this encounter Visit Diagnoses Not on filedocumented in this encounter Care Teams Carton Stapler Relationship Specialty Start Date End Date Graham Licona MD PCP - General Family Practice 04/13/17 01/15/18 [facility] [address] [facility] [place] [place] [address] documented as of this encounter
--- OUTSIDE RECORDS SUMMARY | 2022-07-19 08:25 | XMS_ITS | Encounter Summary ---
:1940 Author Organization [place] Address [facility] [place] [address] Care Team Providers Name Role Phone Clinic, [facility] Primary Care Provider [phone] Encounter Details Date Type Department Care Team Description 01/23/2018 Orders Only [facility] Heart SOB (shortness of breath) Clinic [facility] [address] [facility] [address] [place] , [place] [phone] Social History Tobacco Use Types Packs/Day Years [...] [address] [place] [address] (Wo rk) 08/16/2022 Office Visit Cardiology Timothy Smith MD [address] [place] [address] (Wo rk) documented as of this encounter [...] [facility] mmol/L 10:46 AM CDT [facility] A Potassium 4.4 3.5 - 5.1 01/23/2018 [facility] mmol/L 10:46 AM CDT [facility] A Chloride 101 98 - 107 01/23/2018 [facility] mmol/L 10:46 AM CDT [facility] A Carbon Dioxide 29 23 - 29 01/23/2018 [facility] mmol/L 10:46 AM CDT [facility] A Anion Gap 15.4 6 - 17 01/23/2018 [facility] mmol/L 10:46 AM T [facility] A Glucose 152 (H) 70 - 105 01/23/2018 [facility] mg/dL 10:46 AM T [facility] A Urea Nitrogen 27 7 - 30 01/23/2018 [facility] mg/dL 10:46 AM T [facility] A Creatinine 1.27 0.70 - 01/23/2018 [facility] 1.30 mg/dL 10:46 AM CDT [facility] A GFR Estimate 55 (L) >60 01/23/2018 [facility] mL/min/1.7 10:46 AM CDT [facility] m2 A GFR Estimate If 66 >60 01/23/2018 [facility] Black mL/min/1.7 10:46 AM T [facility] m2 A Calcium 10.1 8.5 - 10.5 01/23/2018 [facility] mg/dL 10:46 AM T [facility] A Specimen Anatomical Collection Method Collection Time Receive d Time (Source) Location / / Volume Laterality Blood specimen 01/23/2018 9:50 AM 018 9:51 (specimen) CDT AM CDT Timothy Smith MD LAB - BLOOD ORDERABLES Performing Organization Address City/State/ZIP Code Phon e Number [facility] [address] [place] [address] [address] documented in this encounter Visit Diagnoses Diagnosis SOB (shortness of breath) Shortness of breath documented in this encounter Care Teams Clinical Nursing Professor Relationship Specialty Start Date End Date Clinic, Vinny Jaimes PCP - General 01/16/18 07/01/18 [address] [place] [address] documented as of this encounter
--- OUTSIDE RECORDS SUMMARY | 2022-07-19 08:26 | XMS_ITS | Encounter Summary ---
:1940 Author Organization [place] Address [address] [facility] [place] [address] Care Team Providers Name Role Phone Nas Cardenas MD Primary Care Provider Reason for Visit Reason Comments ICD Check Encounter Details Date Type Department Care Team Description 03/29/2017 Allied Health/Nurse [facility] Heart ICD Check Visit Clinic [address] [place] [phone] Social History Tobacco Use Types Packs/Day Years Used Date Smoking Tobacco: Never Alcohol Use Standard Drinks/Week Comments No 0 (1 standard drink = 0.6 oz pure alcoho l) Sex Assigned at Date Recorded Not on file documented as of this encounter Progress Notes Mary Norris RN, RN - 03/29/2017 4:30 PM CDT Courtesy check: No charge. [facility] EHR remote ICD alert for VT and NSVT [...] to schedule f/u with Dr Smith or DOOR AND ARRIVAL ATTENDANT if symptoms persist. Or if he cont to have frequent fast rates, we can review need to med changes with Dr Smith. 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
--- OUTSIDE RECORDS SUMMARY | 2022-07-19 08:26 | XMS_ITS | Encounter Summary ---
:1940 Author Organization [place] Address [address] [facility] [place] [address] Care Team Providers Name Role Phone Graham Licona MD Primary Care Provider Reason for Visit Reason Onset Date Comments Medication Request 05/04/2017 SE with warfarin- wa nts to switch back to Eliquis Encounter Details Date Type Department Care Team Description 05/04/2017 Telephone [facility] Heart Zarina Smith MD Medication Request ([facility] [place] [address] with warfarin- wants to [address] switch back to Eliquis) [facility] [address] [place] [address] [place] [phone] Social History Tobacco Use [...] instruct pt to stop AC, I will change management analyst the prescription at this time. Patient will call us back after F/U on Sunday with anyfurther instructions/findings. SIENNA Cowart documented in this encounter Plan of Treatment Upcoming Encounters Date Type Specialty Care Team Description 08/16/2022 Ancillary Procedure Cardiology Timothy Smith MD [address] [place] [phone] (Wo rk) 08/16/2022 Office Visit Cardiology Timothy Smith MD [address] [place] [id number] (Wo rk) documented as of this encounter Visit Diagnoses Diagnosis Paroxysmal atrial fibrillation (H) - Ria jing Atrial fibrillation documented in this encounter Care Teams Beef Killer Relationship Specialty Start Date End Date Graham Licona MD PCP - General Family Practice 04/13/17 01/15/18 [facility] [address] [place] [address] documented as of this encounter
--- OUTSIDE RECORDS SUMMARY | 2022-07-19 08:26 | XMS_ITS | Encounter Summary ---
:1940 Author Organization [place] Address [address] [facility] [place] [address] Care Team Providers Name Role Phone Nas Cardenas MD Primary Care Provider Reason for Visit Reason Comments ICD Check Encounter Details Date Type Department Care Team Description 03/26/2017 Allied Health/Nurse [facility] [place] [facility] ICD Check Visit Clinic [place] [address] [facility] [address] [place] [phone] Social History Tobacco Use Types Packs/Day Years Used Date Smoking Tobacco: Never Alcohol Use Standard Drinks/Week Comments No 0 (1 standard drink = 0.6 oz pure alcoho l) Sex Assigned at Date Recorded Not on file documented as of this encounter Progress Notes Mary Norris, RN, RN - 03/26/2017 4:30 PM CDT Courtesy Check: No charge. 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
--- OUTSIDE RECORDS SUMMARY | 2022-07-19 08:26 | XMS_ITS | Encounter Summary ---
:1940 Author Organization [place] Address [address] [place] [address] Care Team Providers Name Role Phone Nas Cardensa MD Primary Care Provider Reason for Visit Reason Onset Date Comments Other 04/06/2016 left messge stating he was not going to start warfarin Encounter Details Date Type Department Care Team Description 04/06/2016 Telephone [facility] Heart Fabiola Hurtado (left messge Clinic [place] Bui, RN, RN stating he was not [address] [facility] HEART going to start [facility] [address] CLINIC warfarin) [place] [phone] [address] [facility] [address] [phone] [address] [place] [id number] Social History Tobacco Use Types Packs/Day Years [...] and refused to drive during this time. SupaRN documented in this encounter Plan of Treatment Upcoming Encounters Date Type Specialty Care Team Description 08/16/2022 Ancillary Procedure Cardiology Timothy Smith MD [address] [place] [id number] (Wo rk) 08/16/2022 Office Visit Cardiology Timothy Smith MD [address] [place] [address] (Wo rk) documented as of this encounter Visit Diagnoses Not on filedocumented in this encounter Care Teams Roll Scale Worker Relationship Specialty Start Date End Date Nas Cardenas MD PCP - General Family Practice 02/01/12 04/12/17 documented as of this encounter
--- OUTSIDE RECORDS SUMMARY | 2022-07-19 08:26 | XMS_ITS | Encounter Summary ---
:1940 Author Organization [place] Address [address] [facility] [place] [address] Care Team Providers Name Role Phone Nas Cardenas MD Primary Care Provider Reason for Visit Reason Onset Date Comments Prior Auth - Medication 04/24/2016 ELIQUIS 5 MG- NO PA NEEDED Encounter Details Date Type Department Care Team Description 04/24/2016 Telephone [facility] Heart Zarina Smith MD Prior Auth - Medication Clinic [place] [address] (ELIQUIS 5 MG- NO PA [address] NEEDED) [facility] [address] [place] [address] [place] [address] Social History Tobacco Use Types Packs/Day [...] [address] [place] [phone] (Wo rk) 08/16/2022 Office Visit Cardiology Timothy Smith MD [address] [place] [address] (Wo rk) documented as of this encounter Visit Diagnoses Not on filedocumented in this encounter Care Teams Roll Tester Relationship Specialty Start Date End Date Nas Cardenas MD PCP - General Family Practice 02/01/12 04/12/17 documented as of this encounter
--- OUTSIDE RECORDS SUMMARY | 2022-07-19 08:26 | XMS_ITS | Encounter Summary ---
:1940 Author Organization [place] Address [facility] [place] [address] Care Team Providers Name Role Phone Nas Cardenas MD Primary Care Provider Reason for Visit Reason Comments Pacemaker Check PPM Latitude NXT Encounter Details Date Type Department Care Team Description 10/04/2016 Allied Health/Nurse [facility] Pac emaker Check (PPM Visit Heart Clinic [place] Latitude NXT) [address] [place] [address] [address] [place] [phone] Social History Tobacco Use Types Packs/Day Years Used Date Smoking Tobacco: Never Alcohol Use Standard Drinks/Week Comments No 0 (1 standard drink = 0.6 oz pure alcoho l) Sex Assigned at Date Recorded Not on file documented as of this encounter Progress Notes Sary Riojas - 10/04/2016 8:17 AM CST [employer] Essentio EL L121 (D) Remote PPM Device Check AP: 2% PLANT ATTENDANT OR ASSISTANT OPERATOR: 13% Mode: DDDR Presenting Rhythm: Aflutter with VS and PLANT ATTENDANT OR ASSISTANT OPERATOR Heart Rate: evidence on histogram of some [...] message with results and next transmission date. [employer]lson CVT EMS SUPPORT SPECIALIST documented in this encounter Plan of Treatment Upcoming Encounters Date Type Specialty Care Team Description 08/16/2022 Ancillary Procedure Cardiology Timothy Smith MD [address] [place] [phone] (Wo rk) 08/16/2022 Office Visit Cardiology Timothy Smith MD [address] [place] [phone] (Wo rk) documented as of this encounter Procedures Procedure Name Priority Date/Time Associated Diagnosis Comme [facility] PM DEVICE Routine 10/04/2016 8:35 AM Cardiac pacemaker in INTERROGATE REMOTE, UP SYSTEMS SUPPORT SPECIALIST situ TO 90 DAYS, LEAD/LEADLESS HC INTERR DEVICE EVAL Routine 10/04/2016 Cardiac pacemaker i n REMOTE, PM/LDLS PM/ICD, situ UP TO 90 DAYS documented in this encounter Results INTERROGATION DEVICE EVAL REMOTE, PACER/ICD (07268) (10/04/2016) Narrative This result has an attachment that is no t available. Chris Hinds MD PROCEDURES documented in this encounter Visit Diagnoses Diagnosis Cardiac pacemaker in situ - Primary documented in this encounter Care Teams Road Roller Operator Hot Mix Relationship Specialty Start Date End Date Nas Cardenas MD PCP - General Family Practice 02/01/12 04/12/17 documented as of this encounter
--- OUTSIDE RECORDS SUMMARY | 2022-07-19 08:26 | XMS_ITS | Encounter Summary ---
:1940 Author Organization [place] Address [address] [place] [address] Care Team Providers Name Role Phone Nas Cardenas MD Primary Care Provider Reason for Visit (Routine) - Closed Specialty Diagnoses / Procedures Referred By Contact Refer red To Contact Cardiology Diagnoses Per Fabiola Woo Cardiac Test [facility] Procedures HOLTER MONITOR [address] [place], [place] [address] Phone: Fax: Referral ID Status Reason Start Date Expiration Date Visits Requ ested Visits Authorized [id number] Closed 03/29/2016 03/29/2017 1 1 Encounter Details Date Type Department Care Team Description 04/13/2016 Hospital Encounter [place] [facility] Timothy Smith MD SSS (sick sinus syndrome) (H); [facility] [address] [place] [address] Typical atrial flutter (H) [address] [employer] [place] [address] [place] [address] [place], [place] [phone] [address] (Work) [phone] Social History Tobacco Use Types Packs/Day Years [...] 08/16/2022 Ancillary Procedure Cardiology Timothy Smith MD [address] [place] [phone] (Wo rk) 08/16/2022 Office Visit Cardiology Timothy Smith MD [address] [place] [address] (Wo rk) documented as of this encounter Procedures Procedure Name Priority Date/Time Associated Diagnosis Comme nts HOLTER MONITOR 24 HOUR Routine 04/18/2016 SSS (sick sinus Re sults for this - ADULT syndrome) (H) procedure are in the Typical atrial flutter resul ts section. (H) documented in this encounter Results Holter Monitor 24 hour - Adult (04/18/2016) Narrative RADIANT - 04/18/2016 [facility] [address] [facility] [address] [facility] [address] 04/13/2016 Patient: ??Haris Bullard [facility] Chart: [id number] : ??1940 Age: ??75 year old Sex: ??male Procedure: ??Holter Monitor Placed: plea se see scanned document for result once interpretation is comple star. Scuba Diver performing hook-up: ??Sheri Yuen Timothy Smith MD CV CARDIAC SERVICES ORDERABL ES Performing Organization Address City/State/ZIP Code Phon e Number RADIANT documented in this encounter Visit Diagnoses Diagnosis SSS (sick sinus syndrome) (H) Sinoatrial node dysfunction Typical atrial flutter (H) Atrial flutter documented in this encounter Care Teams Oracle Fusion Consultant Relationship Specialty Start Date End Date Nas Cardenas MD PCP - General Family Practice 02/01/12 04/12/17 documented as of this encounter
--- OUTSIDE RECORDS SUMMARY | 2022-07-19 08:26 | XMS_ITS | Encounter Summary ---
:1940 Author Organization [place] Address [address] [facility] [place] [address] Care Team Providers Name Role Phone Nas Cardenas MD Primary Care Provider Reason for Visit Reason Comments Heart Problem 6 week follow up - Closed Specialty Diagnoses / Procedures Referred By Contact Refer red To Contact Diagnoses SSS (sick sinus syndrome) (H) Typical atrial flutter (H) [facility] [id number] [place] [phone] Referral ID Status Reason Start Date Expiration Date Visits Requ ested Visits Authorized [id number] Closed 04/11/2016 04/11/2017 1 1 Encounter Details Date Type Department Care Team Description 05/15/[address] [facility] Ankur Smith MD SSS (sick sinus syndrome) (H); [facility] [place] [address] [facility] Typical atrial flutter (H) [id number] [place] [address] [place] [phone] Social History Tobacco Use [...] CDT May 15, 2016 Nas Cardenas MD [facility] [address] [place], [place] [id number] RE: Radha Villa : [address] [...] episodes of sinus asystole. He received a [place] [employer] dual-chamber pacemaker implantation during the same hospitalization because he reported history of recurrent near-syncope prior to the admission. Since the pacemaker implantation, he has not had any recurrent syncope. He did undergo coronary angiography that showed patent grafts, although his [place] vessels were occluded. At the present time, [...] Greene MD MT: KALPESH Name: RADHA VILLA MRN: [id number] Account: [id number] : 1940 Service Date: 05/15/2016 Document: [id number] Ankur Smith MD - 05/15/2016 1:29 PM [...] 08/16/2022 Ancillary Procedure Cardiology Ankur Smith MD [address] [place] [phone] (Fiorella olvera) 08/16/2022 Office Visit Cardiology Ankur Smith MD [address] [place] [address] (Wo rk) documented as of this encounter Visit Diagnoses Diagnosis SSS (sick sinus syndrome) (H) Sinoatrial node dysfunction Typical atrial flutter (H) Atrial flutter documented in this encounter Care Teams Make Up Artist Relationship Specialty Start Date End Date Nas Cardenas MD PCP - General Family Practice 02/01/12 04/12/17 documented as of this encounter
--- OUTSIDE RECORDS SUMMARY | 2022-07-19 08:26 | XMS_ITS | Encounter Summary ---
:1940 Author Organization [place] Address [facility] [place] [address] Care Team Providers Name Role Phone Nas Cardenas MD Primary Care Provider Reason for Visit Reason Comments Pacemaker Check PPM Latitude NXT Encounter Details Date Type Department Care Team Description 06/28/2016 Allied Health/Nurse [facility] Pac emaker Check (PPM Visit Heart Clinic [place] Latitude NXT) [address] [place] [address] [address] [place] [address] Social History Tobacco Use Types Packs/Day Years Used Date Smoking Tobacco: Never Alcohol Use Standard Drinks/Week Comments No 0 (1 standard drink = 0.6 oz pure alcoho l) Sex Assigned at Date Recorded Not on file documented as of this encounter Progress Notes Sary Rijoas - 06/28/2016 9:00 AM CDT 90 day Latitude NXT Remote PPM Device Check AP: 2% FLOW COORDINATOR: 14% Mode: DDDR Underlying Rhythm: Aflutter with [...] MD [address] [place] [phone] (Wo rk) 08/16/2022 Office Visit Cardiology Timothy Smith MD [address] [place] [address] (Wo rk) documented as of this encounter Procedures Procedure Name Priority Date/Time Associated Diagnosis Comme nts ZC PM DEVICE Routine 06/28/2016 9:13 AM Cardiac pacemaker in INTERROGATE REMOTE, UP CDT situ TO 90 DAYS, LEAD/LEADLESS HC INTERR DEVICE EVAL Routine 06/28/2016 Cardiac pacemaker i n REMOTE, PM/LDLS PM/ICD, situ UP TO 90 DAYS documented in this encounter Results INTERROGATION DEVICE EVAL REMOTE, PACER/ICD (74262) (06/28/2016) Narrative This result has an attachment that is no t available. Bsail Guadalupe MD PROCEDURES documented in this encounter Visit Diagnoses Diagnosis Cardiac pacemaker in situ - Primary documented in this encounter Care Teams Horse Racetrack Manager Relationship Specialty Start Date End Date Nas Cardenas MD PCP - General Family Practice 02/01/12 documented as of this encounter
--- OUTSIDE RECORDS SUMMARY | 2022-07-19 08:26 | XMS_ITS | Encounter Summary ---
:1940 Author Organization [place] Address [address] [facility] [place] [address] Care Team Providers Name Role Phone Garham Licona MD Primary Care Provider Reason for Visit Reason Comments Pacemaker Check Courtesy/Alert Encounter Details Date Type Department Care Team Description 04/19/2017 Allied Health/Nurse [facility] Pac emaker Check Visit Heart Clinic [place] (Courtesy/Alert) [address] [facility] [address] [place] [phone] Social History Tobacco Use Types Packs/Day Years Used Date Smoking Tobacco: Never Alcohol Use Standard Drinks/Week Comments No 0 (1 standard drink = 0.6 oz pure alcoho l) Sex Assigned at Date Recorded Not on file documented as of this encounter Progress Notes Quang Montalvo, RN - 04/19/2017 4:30 PM CDT [employer] PPM Courtesy/ No Charge Alert received for VT episodes. EGMs reviewed showing AF with RVR between 21 seconds and 1 minute and 13 seconds. Patient has know AF. Will continue to monitor. YRadha documented in this encounter Plan of Treatment Upcoming Encounters Date Type Specialty Care Team Description 08/16/2022 Ancillary Procedure Cardiology Timothy Smith [facility] [address] [facility] [address] [place] [address] (Wo rk) 08/16/2022 Office Visit Cardiology Timothy Smith MD [address] [place] [phone] (Wo rk) documented as of this encounter Visit Diagnoses Diagnosis Cardiac pacemaker in situ - Primary documented in this encounter Care Teams Tobacco Conditioner Relationship Specialty Start Date End Date Graham Licona MD PCP - General Family Practice 04/13/17 01/15/18 [facility] [address] [place] [address] documented as of this encounter
--- OUTSIDE RECORDS SUMMARY | 2022-07-19 08:26 | XMS_ITS | Encounter Summary ---
:1940 Author Organization [place] Address [address] [facility] [place] [address] Care Team Providers Name Role Phone Nas Cardenas MD Primary Care Provider Reason for Visit (Routine) - Closed Specialty Diagnoses / Procedures Referred By Contact Refer red To Contact Cardiology Diagnoses Per Sarah 24 hour holter, AFIB Zzrh Cardiac Test [facility] Procedures HOLTER MONITOR [address] [place], [place] [address] Phone: Fax: Referral ID Status Reason Start Date Expiration Date Visits Requ ested Visits Authorized [id number] Closed 01/03/2017 01/03/2018 1 1 Encounter Details Date Type Department Care Team Description 01/04/2017 Hospital Encounter [place] [facility] Timothy Smith MD [facility] [address] fibrillation (H) [address] [place] [address] [place], [place] [phone] [address] (Work) [phone] Social History Tobacco Use Types Packs/Day Years [...] MD [address] [place] [address] (Wo rk) 08/16/2022 Office Visit Cardiology Timothy Smith MD [address] [place] [address] (Wo rk) documented as of this encounter Procedures Procedure Name Priority Date/Time Associated Diagnosis Comme nts HOLTER MONITOR 24 Routine 01/08/2017 Paroxysmal atrial Resul ts for this HOUR - ADULT fibrillation (H) procedure a re in the results section . documented in this encounter Results Holter Monitor 24 hour - Adult (01/08/2017) Narrative RADIANT - 01/08/2017 [facility] [address] [facility] [address] [facility] [address] 01/04/2017 Patient: ??Haris Bullard [facility] Chart: [id number] : ??1940 Age: ??76 year old Sex: ??male Procedure: ??Holter Monitor Placed: plea se see scanned document for result once interpretation is completed. Geotechnician performing hook-up: ??Sheri Yuen Timothy Smith MD CV CARDIAC SERVICES ORDERABL ES Performing Organization Address City/State/ZIP Code Phon e Number RADIANT documented in this encounter Visit Diagnoses Diagnosis Paroxysmal atrial fibrillation (H) Atrial fibrillation documented in this encounter Care Teams Telecommunicator Relationship Specialty Start Date End Date Nas Cardenas MD PCP - General Family Practice 02/01/12 04/12/17 documented as of this encounter
--- OUTSIDE RECORDS SUMMARY | 2022-07-19 08:26 | XMS_ITS | Encounter Summary ---
:1940 Author Organization [place] Address [address] [facility] [place] [address] Care Team Providers Name Role Phone Herminia Coleman MD Primary Care Provider Reason for Referral - Closed Specialty Diagnoses / Procedures Referred By Contact Refer red To Contact Diagnoses Sinoatrial node dysfunction (H) Ankur Smith MD [address] [place] [address] Referral ID Status Reason Start Date Expiration Date Visits Requ ested Visits Authorized [id number] Closed 03/06/2016 03/06/2017 1 1 Reason for Visit Auth/Cert Specialty Diagnoses / Procedures Referred By Contact Refer red To Contact Coronary Intensive Diagnoses Chest Pain / Unstable Angina ACS (acute coronary syndrome) (HCC) Coronary Care Care Unit [address] , [address] [place] [address] Phone: Referral ID Status Reason Start Date Expiration Date Visits Requ ested Visits Authorized [id number] 1 1 Encounter Details Date Type Department Care Team Description 02/02/2016 - Hospital Encounter [facility] Blane Pina Sin oatrial node dysfunction (H) (Primary Dx); 02/04/2016 Bethany Fung MD Type 2 diabetes mellitus with complicati on (H); Care Unit [address] Second degree AV block; [address] Atrial flutter, unspecified; [address] [place], [place] Coronary artery disease invo lving [place] coronary artery of [place] heart with angina pectoris (H) [place] [phone] Social History Tobacco Use Types Packs/Day Years Used Date Smoking Tobacco: Never Alcohol Use Standard Drinks/Week Comments Yes 0 [...] and nitroglycerin drips. He was admitted to [facility] where he was seen by Cardiology and underwent angiography the following day. This showed chronically occluded [place] vessels with patent saphenous vein grafts as [...] discharge. He will continue on his typical SPINE NURSE medication regimen. CODE STATUS: Full code. TOTAL DISCHARGE TIME: Greater than 30 minutes. MAYNOR JOYCE DO MT: [id number] Name: RADHA FAROOQ Account: [id number] : 1940 Admit Date: Discharge Date: 02/04/2016 Document: [id number] cc: Ankur Coleman MD documented in this encounter Discharge Instructions Discharge InstructionsMaynor Joyce DO - 02/04/2016 9:52 AM CDT Ok to restart metformin on 02/05 AttachmentsThe following attachments cannot be sent through Care Everywhere. PACEMAKER IMPLANTATION, DISCHARGE INSTRUCTIONS FOR (NIUEAN)PACEMAKER, LIVING WITH (NIUEAN)documented in this encounter Medications at Time of [...] Atrial flutter, unspecified, Coronary artery disease involving [place] coronary artery of [place] heart with angina pectoris (H) NITROGLYCERIN SL [...] Colmenares MD - 02/04/2016 1:47 PM CDT [facility] Cardiology Progress Note Date of Service (when [...] Rx and rhythm management. Willi Colmenares MD [facility] Interval History S: Doing well; no [...] Not to drive for 1 month. Maynor Joyce DO - 02/04/2016 9:17 AM CDT [facility] Hospitalist Progress Note Maynor Joyce D.Jenae Date of service (Date I saw patient): 02/04/2016 Assessment and Plan Radha Farooq is a 75 year old male who was directly admitted from [facility] on 02/02/16 for evaluation of epigastric discomfort, chest pain and elevated troponin concerning for NSTEMI in the setting of known CAD. CAD with 4 vessel bypass 1987 with NSTEMI: Initially presented in [place] with epigastric discomfort and found to have elevated troponin. Troponin stable around 0.4. Angiogram 02/02 showed occluded LMand RCA, patent to LAD, Diagonal, OM and PDA. - cards recommends medical management - Continue SPINE NURSE ASA, lisinopril, and simvastatin - metoprolol on hold as of 02/02 given five second pause - Appreciate Cardiology assistance. Five second sinus pause: noted on tele evening of 02/02. On toprol XL 50 mg daily SPINE NURSE. -metoprolol dc 02/02 -EP consult pending GERD: [...] A1C 9.0 (7.9 in 10/16 per CareEverywhere) SPINE NURSE regimen Metformin 1000 mg/d and Glipizide 5 [...] Herman PA-C - 02/03/2016 9:58 AM CDT [facility] Hospitalist Progress Note Date of Service (when I saw the patient): 02/03/2016 Assessment and Plan Radha Farooq is a 75 year old male who was directly admitted from [facility] on 02/02/16 for evaluation of epigastric discomfort, chest pain and elevated troponin concerning for NSTEMI in the setting of known CAD. CAD with 4 vessel bypass 1987 with NSTEMI - Initially presented in [place] with epigastric discomfort and found to have elevated troponin - Trop trend 0.407--0.411--0.395 - Continues on heparin and nitroglycerin drip as well as SPINE NURSE ASA, lisinopril, Toprol XL and simvastatin -Appreciate [...] 9.0 (7.9 in 10/16 per CareEverywhere) - SPINE NURSE regimen Metformin 1000 mg/d and Glipizide 5 [...] EVALUATION. CXR RESULTS ARE NOT AVAILABLE FROM [facility] AND NEED TO BE REVIEWED-PENDING. Addendum: CXR results received from [place] radiology. Radiology read- no acute abnormality. documented [...] approximately 0.3. He was then transferred to [facility] for further evaluation. Prior to transfer, thepatient was started on heparin and nitroglycerin. Currently, patient states that his pain has remained at a 5/10 without any improvement following the initiation of heparin and nitroglycerin. PAST MEDICAL HISTORY: 1. Hypertension. 2. Hyperlipidemia. 3. Coronary artery disease. 4. Atrial flutter, status post ablation. 5. History of right eye melanoma, status post treatment at the [facility]. 6. Metabolic syndrome. 7. Diabetes mellitus type [...] 98.5 degrees, pulse 83, respiratory rate 20, [id number]% on room air. GENERAL: This is a [...] BLANE PINA MD MT: Name: RADHA FAROOQ MRN: [id number] Account: [id number] : 1940 Admitted: [id number] Document: [id number] cc: Herminia Coleman MD documented in this [...] sent for coronary angiography that showed occluded [place] RCA, but the bypass graft was patent. [...] SMITH MD MT: [id number] Name: RADHA FAROOQ Account: [id number] : 1940 Consult Date: 02/04/2016 Document: [id number] cc: Maynor Joyce DO Siddharth Singleton DO - 02/03/2016 9:27 AM CDT CARDIOLOGY CONSULTATION DATE OF SERVICE: 02/03/2016. REQUESTING PHYSICIAN: Blane Pina MD. REASON FOR REFERRAL: Chest pain and elevated cardiac enzymes. HISTORY OF PRESENT ILLNESS: I have been asked to evaluate Radha Farooq, a very pleasant 75-year-old male for the above. He was initially seen at [facility] emergency room for the above symptoms and [...] described as anginal. Mr. Farooq presented to [facility] after experiencing what he thought was acid reflux. He had had some pressure or fullness in the epigastric area. He found some partial relief with belching and he has had some partial relief with baking soda and water. He has not attempted to take sublingual nitroglycerin for his symptoms. At [place] he was noted to have elevated cardiac enzymes; therefore, he was transferred here for further care and evaluation. I did review the electrocardiogram from his admission which demonstrates a sinus rhythm with a prolonged OR interval. There is no acute STor T-wave abnormalities seen on the EKG. His initial troponin at [place] was 0.26. He presented with continued chest pain at [facility] and was admitted. His troponin measurements co [...] His initial blood pressure upon arriving at [place] demonstrated a blood pressure systolic of 111. [...] was reduced recently because of the prolonged OR interval. We are happy to follow along in his care. Please feel free to contact me with any questions you havein regard to his care. SIDDHARTH SINGLETON DO MT: caprice Name: RADHA FAROOQ MRN: [id number] Account: [id number] : 1940 Consult Date: 02/03/2016 Document: [id number] documented in this encounter Miscellaneous Notes Plan [...] Notification Notified Person: MD Notified Persons Name: Aime Notification Date/Time: 02/04/16 8964 Notification Interaction: Text paged Physician Purpose of [...] voiding in urinal. 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 and stated if angio wasn't going [...] [address] [place] [id number] (Wo rk) 08/16/2022 Office Visit Cardiology Ankur Smith MD [address] [place] [phone] (Wo rk) Scheduled Orders Name Type Priority [...] PM CDT Blane Pina MD [facility] POCT Performing Organization Address City/State/ZIP Code Phon e Number FV POINT OF CARE TEST, GLUCOSE POINT OF CARE TEST, GLUCOSE Echocardiogram Complete (02/04/2016 3:25 PM CDT) Anatomical Region Laterality Modality Echocardiography Specimen (Source) Anatomical Collection Method Collection Time Re ceived Time Location / / Volume Laterality 02/04/2016 1:04 PM CDT Narrative 02/04/2016 4:07 PM CDT Interpretation Summary ?Version 2 [facility] Echocardiography Laboratory [address] [place], [place] [id number] Name: RADHA FAROOQ : 1940 Study Date: 02/04/2016 01:04 PM Age: 75 yrs Gender: Male Patient Location: [facility] Reason For Study: Chest Pain Ordering Physician: [...] MD - 016 Interpretation Summary Version 2 [facility] Echocardiography Laboratory [address] [place] [address] Name: RADHA FAROOQ : 1940 Study Date: 02/04/2016 01:04 PM Age: 75 yrs Gender: Male Patient Location: [facility] Reason For Study: Chest Pain Ordering Physician: [...] 12-lead, tracing only (02/04/2016 2:55 PM CDT) [facility] gist Method Time Signature Interpretation ECG [...] was no complication. PACEMAKER INFORMATION: Pulse generator: [employer] [address] Model L121, [place] [id number]. Atrial lead: [employer] Model 2088TC, SR C [id number]. P-wave 2.7 millivolts. Atrial pacing thr eshold .8 volts. Atrial pace impedence 513 ohms. Ventricular lead: [employer] Model 2088TC, SR [id number]. R-wave 20 millivolts. Ventricular pacing threshold .8 [...] was no complication. PACEMAKER INFORMATION: Pulse generator: [employer] [address] Model L121, SN [id number]. Atrial lead: [employer] Model 2088TC, SR C [id number]. P-wave 2.7 millivolts. Atrial pacing thr eshold .8 volts. Atrial pace impedence 513 ohms. Ventricular lead: [employer] Model 2088TC, SR [id number]. R-wave 20 millivolts. Ventricular pacing threshold .8 [...] athologist Signature INR 1.00 0.86 - 1.14 [facility] Specimen Anatomical Collection Method Collection Time Receive d Time (Source) Location / / Volume Laterality Blood specimen 02/04/2016 12:03 6 (specimen) PM CDT 12:13 PM CDT Ankur Smith MD LAB - BLOOD ORDERABLES Performing Organization Address City/[facility]/ZIP Code Phon e Number [facility] [address] [place] [address] [facility] [address] [place] [address], [place] [phone] (ABNORMAL) HCG qualitative (02/04/2016 12:03 PM CDT) [facility] gist Method Time Signature HCG Qualitative Canceled, Test credited NEG [place] Serum Incorrectly ordered by PCU/Clinic [facility] Specimen Anatomical Collection Method Collection Time Receive d Time (Source) Location / / Volume Laterality Blood specimen 02/04/2016 12:03 6 (specimen) PM CDT 12:13 PM CDT Ankur Smith MD LAB - BLOOD ORDERABLES Performing Organization Address City/[facility]/ZIP Code Phon e Number [facility] [address] [place] [address] [facility] [address] [place] [address], [place] SA [phone] CBC with platelets (02/04/2016 12:03 PM CDT) athologist Signature WBC 6.4 4.0 - 11.0 [place] 10e9/L [facility] RBC Count 4.80 4.4 - 5.9 [place] 10e12/L [facility] Hemoglobin 15.8 13.3 - [place] 17.7 g/dL [facility] Hematocrit 46.8 40.0 - [place] 53.0 % [facility] MCV 98 78 - 100 [facility] MCH 32.9 26.5 - [place] 33.0 pg [facility] MCHC 33.8 31.5 - [place] 36.5 g/dL [facility] RDW 13.6 10.0 - [place] 15.0 % [facility] Platelet Count 206 150 - 450 [place] 10e9/L [facility] Specimen Anatomical Collection Method Collection Time Receive d Time (Source) Location / / Volume Laterality Blood specimen 02/04/2016 12:03 6 (specimen) PM CDT 12:13 PM CDT Ankur Smith MD LAB - BLOOD ORDERABLES Performing Organization Address City/State/ZIP Code Phon e Number [facility] [address] [place] [address] [phone] [facility] [address] [place] [address], [place] [phone] (ABNORMAL) Glucose by meter (02/04/2016 11:57 AM CDT) P athologist Signature Glucose 203 (H) 70 - 99 POINT OF CARE mg/dL TEST, GLUCOSE Specimen Anatomical Collection Method Collection Time Receive d Time (Source) Location / / Volume Laterality 02/04/2016 11:57 02/04/2016 AM CDT 12:00 PM CDT Blane [place]ICK[place] POCT Performing Organization Address City/[facility]/ZIP Code Phon e Number FV POINT OF CARE TEST, GLUCOSE POINT OF CARE TEST, GLUCOSE (ABNORMAL) Glucose by meter (02/04/2016 7:15 AM CDT) P athologist Signature Glucose 173 (H) 70 - 99 POINT OF CARE mg/dL TEST, GLUCOSE Specimen Anatomical Collection Method Collection Time Receive d Time (Source) Location / / Volume Laterality 02/04/2016 7:15 AM 6 8:01 CDT AM CDT Blane [place] POCT Performing Organization Address City/State/ZIP Code Phon [...] AM 6 2:25 CDT AM CDT Blane [place] POCT Performing Organization Address City/[facility]/ZIP Code Phon e Number FV POINT OF CARE TEST, GLUCOSE POINT OF CARE TEST, GLUCOSE EP REPORT - HIM SCAN (02/04/2016 12:00 AM CDT) Anatomical Region Laterality Modality [...] PM 6 9:16 CDT PM CDT Blane [place] POCT Performing Organization Address City/[facility] Phon e Number FV POINT OF CARE [...] CDT Blane NICKERSON POCT Performing Organization Address City/[facility] Phon e Number FV POINT OF CARE TEST, GLUCOSE POINT OF CARE TEST, GLUCOSE Heart Cath Left heart cath (02/03/2016 4:25 PM CDT) Anatomical Region Laterality Modality Radio Fluoroscopy Specimen (Source) Anatomical Location Collection Method / Collectio n Time Received Time / Laterality Volume Impressions 02/03/2016 4:30 PM CDT IMPRESSION: Occluded [place] coronary arteries. Patent bypass ??grafts. PLAN: Medical [...] sterile fashion. Under 1% Lidocaine a 4 Congolese sheath was placed in the right femoral artery using a modifie d Seldinger technique. Coronary angiography was performed with a 4 Cong[place] JL 4.5 and 3 DRC, multipurpose catheter diagnostic cathete rs. Standard angle and views were used for the right and left coronar ies. ??Wave wire was performed to the RCA graft. This was negative. ??A ortogram was done to look for RCA [place] artery. FINDINGS: See below LEFT MAIN CORONARY [...] patent . FFR negative. Procedure Note Juan Jsoé Person MD - 02/03/2016Fo rmatting of this [...] sterile fashion. Under 1% Lidocaine a 4 Cong[place]ese sheath was placed in the right femoral artery using a modifie d Seldinger technique. Coronary angiography was performed with a 4 Cong[place]ese JL 4.5 and 3 DRC, multipurpose catheter diagnostic cathete rs. Standard angle and views were used for the right and left coronar ies. Wave wire was performed to the RCA graft. This was negative. Aor togram was done to look for RCA [place] artery. FINDINGS: See below LEFT MAIN CORONARY [...] widely patent . FFR negative. IMPRESSION: Occluded [place] coronary art eries. Patent bypass grafts. PLAN: Medical management JUAN JOSÉ PERSON MD Siddharth Arananiherbert Singleton DO CV CARDIAC CATH ORDERABLE S [...] CDT) athologist Signature Heparin 10A 0.29 IU/mL [facility] Comment: Therapeutic Range: ?? UFH: ?? 0.15-0.35 [...] Organization Address City/State/ZIP Code Phon e Number [facility] [address] [place] [address] [facility] [address] [place] [address], U [phone] (ABNORMAL) Glucose by meter (02/03/2016 12:04 PM CDT) P athologist Signature Glucose 157 (H) 70 - 99 POINT OF CARE mg/dL TEST, GLUCOSE Specimen Anatomical Collection Method Collection Time Receive d Time (Source) Location / / Volume Laterality 02/03/2016 12:04 02/03/2016 PM CDT 12:11 PM CDT Blane [facility] POCT Performing Organization [...] AM 6 7:21 CDT AM CDT Blane [place] POCT Performing Organization Address City/State/ZIP Code Phon e Number FV POINT OF CARE TEST, GLUCOSE POINT OF CARE TEST, GLUCOSE (ABNORMAL) Troponin I (02/03/2016 4:50 AM CDT) Analysis Performed At Patho logist Time Signature Troponin I ES 0.395 () 0.000 [facility] 0.045 ug/L [facility] Comment: The 99th percentile for upper reference [...] LAB - BLOOD ORDERABLES Performing Organization Address City/[facility]/ZIP Code Phon e Number [facility] [address] [place] [address] [facility] [address] [place] [address], [place] [phone] Heparin Xa (10a) Level (02/03/2016 4:50 AM CDT) [facility] Method Time Signature Heparin 10A <0.10 IU/mL [facility] Therapeutic Range: [place] ?? UFH: ?? 0.15-0.35 IU/mL for low [...] Phon e Number [facility] [address] [place] [address] [phone] [facility] [address] [place] [address], [place] [phone] (ABNORMAL) Basic metabolic panel (02/03/2016 4:50 AM CDT) P athologist Signature Sodium 138 133 - 144 [place] mmol/L [facility] Potassium 4.1 3.4 - 5.3 [place] mmol/L [facility] Chloride 103 94 - 109 [place] mmol/L [facility] Carbon Dioxide 26 20 - 32 [place] mmol/L [facility] Anion Gap 9 3 - 14 [place] mmol/L [facility] Glucose 167 (H) 70 - 99 [place] mg/dL [facility] Urea Nitrogen 27 7 - 30 [place] mg/dL [facility] Creatinine 1.02 0.66 - [place] 1.25 mg/dL [facility] GFR Estimate 71 >60 [place] mL/min/1.[address] Comment: Non GFR Calc GFR Estimate If Black 86 >60 mL/min/1.7m2 F [facility] Comment: GFR Calc Calcium 8.4 (L) 8.5 - 10.1 mg/dL [facility] Specimen Anatomical Collection Method Collection Time Receive d Time (Source) Location / / Volume Laterality Blood specimen 02/03/2016 4:50 AM 016 5:01 (specimen) CDT AM CDT Blane Pina MD LAB - BLOOD ORDERABLES Performing Organization Address City/State/ZIP Code Phon e Number [facility] [address] [address] [phone] [facility] [address] [address], [facility] [phone] (ABNORMAL) Hemoglobin A1c (02/03/2016 4:50 AM CDT) P athologist Signature Hemoglobin A1C 9.0 (H) 4.3 - 6.0 [facility] Specimen Anatomical Collection Method Collection Time Receive d Time (Source) Location / / Volume Laterality Blood specimen 02/03/2016 4:50 AM 016 5:01 (specimen) CDT AM CDT Blane Pina MD LAB - BLOOD ORDERABLES Performing Organization Address City/State/ZIP Code Phon e Number [facility] [address] [address] [facility] [address] [address], [place] [phone] (ABNORMAL) Lipid panel reflex to direct LDL (02/03/2016 4:50 AM CDT) P athologist Signature Cholesterol 155 <200 mg/dL [facility] Triglycerides 190 (H) <150 mg/dL [facility] Comment: Borderline high: ??150-199 mg/dl High: ? 200-499 mg/dl Very high: ? >499 mg/dl HDL Cholesterol 31 (L) >39 mg/dL [facility] LDL Cholesterol Calculated 86 <100 mg/dL [facility] Comment: Desirable: <100 mg/dl Non HDL Cholesterol 124 <130 mg/dL [facility] Specimen Anatomical Collection Method Collection Time Receive d Time (Source) Location / / Volume Laterality Blood specimen 02/03/2016 4:50 AM 016 5:01 (specimen) CDT AM CDT Blane Pina MD LAB - BLOOD ORDERABLES Performing Organization Address City/State/ZIP Code Phon e Number [facility] [address] [address] [facility] [address] [address], [place] [phone] (ABNORMAL) Troponin I - Now then in 4 hours x 3 (02/03/2016 1:40 AM CDT) Analysis Performed At Patho logist Time Signature Troponin I ES 0.441 () 0.000 - [place] 0.045 ug/L [facility] Comment: The 99th percentile for upper reference [...] Phon e Number [facility] [address] [place] [address] [phone] [facility] [address] [place] [address], [place] [phone] (ABNORMAL) Troponin I - Now then in 4 hours x 3 (02/02/2016 9:40 PM CDT) Analysis Performed At Patho logist Time Signature Troponin I ES 0.407 () 0.000 - [place] 0.045 ug/L [facility] Comment: The 99th percentile for upper reference [...] Phon e Number [facility] [address] [place] [address] [facility] [address] [place] [address], [place] SA [phone] CBC with platelets (02/02/2016 9:40 PM CDT) athologist Signature WBC 10.3 4.0 - 11.0 [place] 10e9/L [facility] RBC Count 4.63 4.4 - 5.9 [place] 10e12/L [facility] Hemoglobin 15.2 13.3 - [place] 17.7 g/dL [facility] Hematocrit 45.0 40.0 - [place] 53.0 % [facility] MCV 97 78 - 100 [facility] MCH 32.8 26.5 - [place] 33.0 pg [facility] MCHC 33.8 31.5 - [place] 36.5 g/dL [facility] RDW 13.6 10.0 - [place] 15.0 % [facility] Platelet Count 196 150 - 450 [place] 10e9/L [facility] Specimen Anatomical Collection Method Collection Time Receive d Time (Source) Location / / Volume Laterality Blood specimen 02/02/2016 9:40 PM 016 9:47 (specimen) CDT PM CDT Blane Pina MD LAB - BLOOD ORDERABLES Performing Organization Address City/State/ZIP Code Phon e Number [facility] [address] [place] [address] [facility] [address] [place] [address], [place] [phone] (ABNORMAL) Glucose by meter (02/02/2016 9:12 PM [...] Atrial flutter, unspecified Coronary artery disease involving [place] coronary artery of [place] heart with angina pectoris (H) ACS (acute [...] IV for 2 hours prior to cardiac film laboratory technician procedure, then decrease to 75 mL/hr [...] Sun02/03/16 at 1745, Until Sun02/03/16 at 2334 acetaminophen (TYLENOL) tablet 325-650 m g Given 02/03/2016 7:02 PM CDT 650 mg 325-650 mg, Oral, EVERY 4 HOURS PRN, mild pain, headaches, Starting on Sun02/03/16 at 1740, [...] 325 mg, Oral, DAILY, First dose on Ana 02/03/16 at 0900 bacitracin in 0.9% NaCl 500 [...] 160 mg, Oral, DAILY, First dose on Ana 02/03/16 at 0900 Given 02/03/2016 9:39 AM CDT [...] mcg, Intravenous, EVERY 2 MIN PRN, severe pain, when verbally ordered by the [...] recheck in am 5/6 Heparin dosed per [place] Protocol. Monitor platelets every three days while on anticoagulation therapy. Rate/Dose Verify 02/03/2016 8:04 AM CDT 1,350 Units/hr 13.5 mL/hr Rate/Dose Change 02/03/2016 5:41 AM CDT 1,350 Units/hr 13.5 mL/hr heparin Loading Dose bolus dose from Given 02/03/2016 5:45 AM CD T 5,000 Units infusion pump 5,000 Units 5,000 Units, Intravenous, ONCE, On Sun02/03/16 at 0545, For 1 dose, Nurse to [...] 02/04/2016 aspirin chewable tablet 162 mg (COMPLETED) 2156 (Given - Provider: Sintia Ahuja, RN) 162 [...] Anel Patterson RN) Routine, 3 g, Intravenous, PRE-OP/PRE-OR OCEDURE, Starting on Sun02/04/16 at 1148, For [...] not met) 0757 (Given - Provider: Anel Patterson, RN)1356 (Not Given - Provider: Anel Patterson RN - Reason: NPO)1611 (Given - Provider: Anel Wheatley RN - Comment: BS 229) 1-10 Units, Subcutaneous, 3 TIMES DAILY BEFORE MEALS, First dose on Ana 02/03/16 at 0730, Correction Scale - HIGH INSULIN [...] not met) 2117 (Given - Provider: Sintia Ahuja, SIENNA) 1-7 Units, Subcutaneous, AT BEDTIME, Fir st [...] Cocktail (COMPLETED) 2117 (Given - Provider: Sintia Ahuja RN) 30 mL, Oral, ONCE, On Sun02/02/16 at 2100, For 1 dose lisinopril (PRINIVIL,ZESTRIL) tablet 20 mg (CANCELED) 935 (Not Given - Provider: Nieves Granado RN - Reason: Other) 0759 (Given - Provider: Anel Patterson RN)0900 (Canceled Entry - Provider: Anel Patterson RN) 20 mg, Oral, DAILY, First dose on Sun02/03/16 at 0900 metoprolol (TOPROL-XL) 24 hr tablet 50 mg (CANCELED) 35 (Given - Provider: Nieves Granado RN) 50 mg, Oral, DAILY, First dose on 02/13 at 0900, DO NOT CRUSH. Tablet may be split in half along score line. For Adults, Hold if Heart Rate less than 60 bpm. pantoprazole (PROTONIX) EC tablet 20 mg (CANCELED) 650 (Given - Provider: Irish Hicks RN) 20 mg, Oral, EVERY MORNING BEFORE BREAKF AST, First dose on Sun02/04/16 at 0730, DO NOT CRUSH. Therapeutic interchange for Nexium. pantoprazole (PROTONIX) EC tablet 40 mg (CANCELED) 855 (Given - Provider: Nieves Granado RN) 40 [...] 60.7-25 MG i njection 5 mL (COMPLETED) 151 (Given - Provider: London Mittal) 5 mL, [...] (CANCELED) 2155 (New Bag - Provider: Sintia Ahuja RN) 0004 (Rate/Dose Verify - Provider: Nicole Mak RN)0805 (Rate/Dose Verify - Provider: Nieves Granado RN) at 75 mL/hr, Intravenous, CONTINUOUS, St arting on Sun02/02/16 at 2130, Until Ana 02/03/16 at 2333 0.9% sodium chloride infusion (CANCELED) 0935 (New Bag - Provider: Nieves Granado RN) at 150 mL/hr, Intravenous, CONTINUOUS, 1 50 mL/hr IV for 2 hours prior to cardiac film laboratory technician procedure, then decrease to 75 mL/hr to run throughout the procedure. Start at 0800 for inpatients. IF PATIENT I S RECEIVING RENAL DIALYSIS, RN to reduce rate of 0.9 % sodium chloride IV solution to 10 mL /hour (TKO) IV infusion to prevent fluid overload., Cardiac Pre-procedure, Starting on Ana 02/03/16 at 0930, Until Ana 02/03/16 at 1652 0.9% sodium chloride infusion (CANCELED) 1743 (New Bag - Provider: Sintia Ahuja RN) at 75 mL/hr, Intravenous, CONTINUOUS, Ad ui software engineer over 4 Hours, or until patient is ambulating. IF PATIENT IS RECEIVING RENAL DIALYSIS, RN to reduce rate of 0.9% sodium chloride IV solution to 10 mL /arely r (TKO) to prevent fluid overload, Cardi ac Post-procedure, Starting on Ana 02/03/16 at 1745, Until Ana 02/03/16 at 2334 heparin infusion 25,000 units in 0.45% NaCl 250 mL (CA NCELED) 2128 (New Bag - Provider: Sintia Ahuja RN) 0004 (Rate/Dose Verify - Provider: Nicole Mak RN)0541 (Rate/Dose Change - Provider: Catherine Mak RN)0804 (Rate/Dose Verify - Provider: Nieves Granado, SIENNA)1254 (New Bag - Provider: Jv Granado RN) 1,350 Units/hr (13.5 mL/hr), Intravenous , CONTINUOUS, Starting on Sun02/02/16 at 2130, Goal level of: 0.15-0.35 IU/mL Xa=0.29 , continue @ 1350 units/hr and recheck in am 5/6 Heparin dosed per [place] P 1525 (S topped - Provider: Paulina Steward RN) rotocol. Monitor platelets every three days while on anticoagula tion therapy. nitroglycerin 50 mg in D5W 250 mL (adult std) infusion (CANCELED) 2123 (New Bag - Provider: Sintia Ahuja RN) [...] 02/04/2016 acetaminophen (TYLENOL) tablet 325-650 mg (CANCELED) 1901 (Given - Provider: Sintia Ahuja, SIENNA) 325-650 mg, Oral, EVERY 4 HOURS PRN, mil d pain, headaches, Starting on Ana 02/03/16 at 1740, Maximum acetaminophen dose from all sources = 75 mg/kg/day not to exceed 4 grams/day., Cardiac Post-procedure bacitracin in 0.9% NaCl 500 mL Bottle for irrigation 25,000 Unit s (COMPLETED) 1348 (Given by Other - Provider: Cass Amor, SIENNA) ONCE PRN, for pacemaker/defibrillator po cket antibiotic irrigation. , Starting on Sun02/04/16 at 1310, For 1 dose, Irrigate pacemaker/defibrillator pocket when verbally ordered by prescriber during procedure., Cardiac Intra-procedure bupivacaine HCl 0.25 % preservative free injection SOLN 25-75 mg (COMPLETED) 1330 (Given by Other - Provider: Cass Amor, SIENNA)1335 (Given by Other - Provider: Cass Amor [...] mcg (CANCELED) 1318 (Given - Provider: Cass Amor, SIENNA)1325 (Given - Provider: Cass Amor, SIENNA) 25-50 mcg, Intravenous, EVERY 2 MIN PRN, severe pain (7-10), when verbally ordered by the prescriber during the procedure, Starting on Sun02/04/16 at 1310, Doses can be exceeded under direct oversight of patient by physician., Cardiac Intra-procedure heparin (porcine) injection 1,000-10,000 Units (CANCELED) 1604 (Given - Provider: Lazaro Crenshaw, RN) 1,000-10,000 Units, Intravenous, EVERY 5 MIN PRN, other, bolus dose, Starting on Sun02/03/16 at 1544, when verbally ordered by prescriber during procedure. Up to a max of 25,000 units. Physician may requ est an additional bolus., Cardiac Intra-procedure lidocaine (PF) (XYLOCAINE) 1 % injection 10-100 mg (COMPLETE D) 1550 (Given by Other - Provider: Lazaro Crenshaw RN - Comment: RFG) 10-100 mg (1-10 [...] mg (CANCELED) 1526 (Given - Provider: Lazaro Crenshaw RN)1552 (Given - Provider: Lazaro Crenshaw, RN)1614 (Given - Provider: Lazaro Crenshaw, RN) 0.5-2 mg, Intravenous, EVERY 2 MIN PRN, other, when verbally ordered by prescriber during the procedure., Starting on Sun02/03/16 at 1544, Doses can be exceeded under direct oversight of the patient by physician., Cardiac Intra-procedure midazolam (VERSED) injection 0.5-2 mg (CANCELED) 1320 (Given - Provider: Cass Amor RN)1325 (Given - Provider: Cass Amor, SIENNA) 0.5-2 mg, Intravenous, EVERY 2 MIN PRN, [...] Post-procedure documented in this encounter Care Teams Computational Scientist Relationship Specialty Start Date End Date Herminia Coleman MD PCP - General Family Practice 02/01/12 04/12/17 documented as of this encounter
--- OUTSIDE RECORDS SUMMARY | 2022-07-19 08:26 | XMS_ITS | Encounter Summary ---
:1940 Author Organization [place] Address [address] [facility] [place] [address] Care Team Providers Name Role Phone Graham Licona MD Primary Care Provider Reason for Visit Reason Onset Date Comments Pacemaker Check 04/25/2017 Remote alert for VHR Encounter Details Date Type Department Care Team Description 04/25/2017 Telephone [facility] Heart Fabiola Hurtado acemaker Check (Remote Clinic [place] Bui, RN, RN alert for VHR) [address] [facility] [address] [place] [address] [address] [facility] [phone] [address] [place] [address] Social History Tobacco Use Types Packs/Day Years Used Date Smoking Tobacco: Never Alcohol Use Standard Drinks/Week Comments No 0 (1 standard drink = 0.6 oz pure alcoho l) Sex Assigned at Date Recorded Not on file documented as of this encounter Miscellaneous Notes Telephone Encounter - Fabiola Hurtado, RN, RN - 04/25/2017 5:09 PM CDT [employer]ent[employer] PPM Alert Received alert for another [...] [address] [place] [id number] (Wo rk) 08/16/2022 Office Visit Cardiology Timothy Smith MD [address] [place] [id number] (Wo rk) documented as of this encounter Visit Diagnoses Not on filedocumented in this encounter Care Teams Conference Producer Relationship Specialty Start Date End Date Graham Licona MD PCP - General Family Practice 04/13/17 01/15/18 [facility] [address] [place] [address] documented as of this encounter
--- OUTSIDE RECORDS SUMMARY | 2022-07-19 08:26 | XMS_ITS | Encounter Summary ---
:1940 Author Organization [place] Address [address] [facility] [address] Care Team Providers Name Role Phone Nas Cardenas MD Primary Care Provider Reason for Visit Reason Onset Date Comments Formulary Issue 03/29/2016 Eliquis and NOACS in general are not covered by his insurance plan Encounter Details Date Type Department Care Team Description 03/29/2016 Telephone [facility] Heart Fabiola Hurtado [facility] Issue Clinic [place] Bui RN, RN (Eliquis and NOACS in [address] [facility] HEART genera are not covered [address] by his insurance plan) [place] [phone] [facility] [phone] [address] [place] [phone] Social History Tobacco Use Types Packs/Day Years [...] office. [facility] orders [facility] ([facility] 1 month Rx for 5 mg warfarin sent to pharmacy. Supa documented in this encounter Plan of Treatment Upcoming Encounters Date Type Specialty Care Team Description 08/16/2022 Ancillary Procedure Cardiology Timothy Smith MD [address] [place] [phone] (Wo rk) 08/16/2022 Office Visit Cardiology Timothy Smith MD [address] [place] [address] (Wo rk) documented as of this encounter Visit Diagnoses Diagnosis Typical atrial flutter (H) - Primary Atrial flutter documented in this encounter Care Teams Body Masker Relationship Specialty Start Date End Date Nas Cardenas MD PCP - General Family Practice 02/01/12 04/12/17 documented as of this encounter
--- OUTSIDE RECORDS SUMMARY | 2022-07-19 08:26 | XMS_ITS | Encounter Summary ---
:1940 Author Organization [place] Address [facility] [place] [address] Care Team Providers Name Role Phone Nas Cardenas MD Primary Care Provider Reason for Visit Reason Onset Date Comments Refill Request 06/15/2016 Encounter Details Date Type Department Care Team Description 06/15/2016 Refill [facility] Heart Marian Vega, Refill Request Clinic [place] [address] [facility] [address] [place], [place] [phone] Social History Tobacco Use Types Packs/Day Years [...] [address] [place] [address] (Wo rk) 08/16/2022 Office Visit Cardiology Timothy Smith MD [address] [place] [phone] (Wo rk) documented as of this encounter Visit Diagnoses Diagnosis Atrial flutter (H) - Primary Atrial flutter documented in this encounter Care Teams Batch Trucker Relationship Specialty Start Date End Date Nas Cardenas MD PCP - General Family Practice 02/01/12 04/12/17 documented as of this encounter
--- OUTSIDE RECORDS SUMMARY | 2022-07-19 08:26 | XMS_ITS | Encounter Summary ---
:1940 Author Organization [place] Address [address] [place] [address] Care Team Providers Name Role Phone Nas Cardenas MD Primary Care Provider Reason for Visit Reason Onset Date Comments Results 01/15/2017 Holter Encounter Details Date Type Department Care Team Description 01/15/2017 Telephone [facility] Heart Fabiola Hurtado, Results (Holter) Clinic [place] RN, RN [address] [facility] [address]ART [address] [place] [address] [address] [facility] [phone] [place] [address] (Wo rk) Social History Tobacco Use [...] [address] [place] [address] (Wo rk) 08/16/2022 Office Visit Cardiology Timothy Smith MD [address] [place] [address] (Wo rk) documented as of this encounter Visit Diagnoses Not on filedocumented in this encounter Care Teams Global Transportation Manager Relationship Specialty Start Date End Date Nas Cardenas MD PCP - General Family Practice 02/01/12 04/12/17 documented as of this encounter
--- OUTSIDE RECORDS SUMMARY | 2022-07-19 08:26 | XMS_ITS | Encounter Summary ---
:1940 Author Organization [place] Address [address] [place] [address] Care Team Providers Name Role Phone Graham Licona MD Primary Care Provider Reason for Visit Reason Comments Pacemaker Check annual threshold Encounter Details Date Type Department Care Team Description 04/13/2017 Allied Health/Nurse [facility] Pac emaker Check (annual Visit Heart Clinic [place] threshold) [address] [facility] [address] [place] [phone] Social History Tobacco Use Types Packs/Day Years Used Date Smoking Tobacco: Never Alcohol Use Standard Drinks/Week Comments No 0 (1 standard drink = 0.6 oz pure alcoho l) Sex Assigned at Date Recorded Not on file documented as of this encounter Progress Notes Sammi Hill, SIENNA - 04/13/2017 9:45 AM CDT [employer] Essentio (D) Pacemaker Device Check AP: 1 % FACILITIES ASSISTANT: 15 % Mode: DDDR 60-130, changed to [...] [address] [place] [id number] (Wo rk) 08/16/2022 Office Visit Cardiology Timothy Smith MD [address] [place] [phone] (Wo rk) documented as of this encounter Procedures Procedure Name Priority Date/Time Associated Diagnosis Comme Merged with [facility] PM DEVICE PROGRAMMING Routine 04/13/2017 Cardiac pacemaker in situ EVAL, DUAL LEAD PACER Sinoatrial node dys function (H) documented in this encounter Results PM DEVICE PROGRAMMING EVAL, DUAL LEAD PACER (36735) (04/13/2017) Narrative This result has an attachment that is no t available. Basil Guadalupe MD PROCEDURES documented in this encounter Visit Diagnoses Diagnosis Cardiac pacemaker in situ - Primary Sinoatrial node dysfunction (H) Sinoatrial node dysfunction documented in this encounter Care Teams Finance And Administration Manager Relationship Specialty Start Date End Date Graham Licona MD PCP - General Family Practice 04/13/17 01/15/18 [facility] [address] [place] [address] documented as of this encounter
--- OUTSIDE RECORDS SUMMARY | 2022-07-19 08:26 | XMS_ITS | Encounter Summary ---
:1940 Author Organization [place] Address [address] [facility] [place] [address] Care Team Providers Name Role Phone Graham Licona MD Primary Care Provider Reason for Visit Reason Comments Pacemaker Check remote alert for VHR Encounter Details Date Type Department Care Team Description 04/20/2017 Documentation Only [facility] Fabiola Hurtado acevaker Check Heart Clinic [place] Bui RN, RN (remote alert for [address] [facility] HEART VHR) South [address] [place] [address] [phone] [address] [place] [address] Social History Tobacco Use Types Packs/Day Years Used Date Smoking Tobacco: Never Alcohol Use Standard Drinks/Week Comments No 0 (1 standard drink = 0.6 oz pure alcoho l) Sex Assigned at Date Recorded Not on file documented as of this encounter Progress Notes Fabiola Hurtado, RN, RN - 04/20/2017 9:28 AM CDT [employer] PPM- Alert- NO CHARGE Another alert for VHR- 13 episodes of RVR yesterday at rates of 160-163 BPM lasting 10 seconds to 1 minute and 56 seconds. In past 6 days (when last interrogated) HR overall is still well controlled. We will monitor to assure this does not start to creep up. See Dr MSITH's note on 12/29 regarding possible change in meds if rate is not controlled. SIENNA Cowart documented in this encounter Plan of Treatment Upcoming Encounters Date Type Specialty Care Team Description 08/16/2022 Ancillary Procedure Cardiology Timothy Smith MD [address] [place] [phone] (Wo rk) 08/16/2022 Office Visit Cardiology Timothy Smith MD [address] [place] [phone] (Wo rk) documented as of this encounter Visit Diagnoses Not on filedocumented in this encounter Care Teams Film Inspector Relationship Specialty Start Date End Date Graham Licona MD PCP - General Family Practice 04/13/17 01/15/18 [facility] [address] [place] [address] documented as of this encounter
--- OUTSIDE RECORDS SUMMARY | 2022-07-19 08:26 | XMS_ITS | Encounter Summary ---
:1940 Author Organization [place] Address [address] [facility] [place] [address] Care Team Providers Name Role Phone Nas Cardenas MD Primary Care Provider Reason for Visit Reason Comments Pacemaker Check COurtesy Encounter Details Date Type Department Care Team Description 03/19/2017 Allied Health/Nurse [facility] Pac emaker Check Visit Heart Clinic [place] (COurtesy) [address] [facility] [address] [place] [phone] Social History Tobacco Use Types Packs/Day Years Used Date Smoking Tobacco: Never Alcohol Use Standard Drinks/Week Comments No 0 (1 standard drink = 0.6 oz pure alcoho l) Sex Assigned at Date Recorded Not on file documented as of this encounter Progress Notes Quang Montalvo RN - 03/19/2017 4:30 PM CDT [employer]ent[employer] PPM Courtesy-No Charge Alert received for VT episode. EGM suggest PAT. Patient also had several NSVT episodes; EGMs also suggest PAT Lead measurements are stable. Will continue to monitor. [id number]. documented in this encounter Plan of Treatment Upcoming Encounters Date Type Specialty Care Team Description 08/16/2022 Ancillary Procedure Cardiology Timothy Smith MD [address] [place] [phone] (Wo rk) 08/16/2022 Office Visit Cardiology Timothy Smith MD [address] [place] [address] (Wo rk) documented as of this encounter Visit Diagnoses Diagnosis Cardiac pacemaker in situ - Primary documented in this encounter Care Teams Pickup Driver Relationship Specialty Start Date End Date Nas Cardenas MD PCP - General Family Practice 02/01/12 04/12/17 documented as of this encounter
--- OUTSIDE RECORDS SUMMARY | 2022-07-19 08:26 | XMS_ITS | Encounter Summary ---
:1940 Author Organization [place] Address [facility] [place] [address] Care Team Providers Name Role Phone Nas Cardenas MD Primary Care Provider Reason for Visit Reason Comments Pacemaker Check PPM Latitude Encounter Details Date Type Department Care Team Description 01/03/2017 Allied Health/Nurse [facility] Pac emaker Check (PPM Visit Heart Clinic [facility] Latitude) [address] [place] [address] [address] [place] [address] Social History Tobacco Use Types Packs/Day Years Used Date Smoking Tobacco: Never Alcohol Use Standard Drinks/Week Comments No 0 (1 standard drink = 0.6 oz pure alcoho l) Sex Assigned at Date Recorded Not on file documented as of this encounter Progress Notes Rachel Freedman - 01/03/2017 11:45 AM CDT [employer] Essentio (D) Remote PPM Device Check AP: 2 % MARBLE SUPERVISOR: 14 % Mode: DDDR Presenting Rhythm: Aflutter/MARBLE SUPERVISOR Heart Rate: Adequate rates per histogram Sensing: [...] [address] [place] [address] (Wo rk) 08/16/2022 Office Visit Cardiology Timothy Smith MD [address] [place] [address] (Wo rk) documented as of this encounter Procedures Procedure Name Priority Date/Time Associated Diagnosis Comme nts Z PM DEVICE Routine 01/03/2017 9:24 AM Cardiac pacemaker in INTERROGATE REMOTE, UP CDT situ TO 90 DAYS, LEAD/LEADLESS HC INTERR DEVICE EVAL Routine 01/03/2017 Cardiac pacemaker i n REMOTE, PM/LDLS PM/ICD, situ UP TO 90 DAYS documented in this encounter Results INTERROGATION DEVICE EVAL REMOTE, PACER/ICD (07321) (01/03/2017) Narrative This result has an attachment that is no t available. Timothy Smith MD PROCEDURES documented in this encounter Visit Diagnoses Diagnosis Cardiac pacemaker in situ - Primary documented in this encounter Care Teams Checker In Relationship Specialty Start Date End Date Nas Cardenas MD PCP - General Family Practice 02/01/12 04/12/17 documented as of this encounter
--- OUTSIDE RECORDS SUMMARY | 2022-07-19 08:26 | XMS_ITS | Encounter Summary ---
:1940 Author Organization [place] Address [address] [facility] [place] [address] Care Team Providers Name Role Phone Nas Cardenas MD Primary Care Provider Reason for Visit Reason Onset Date Comments Left Message To Call 01/23/2017 re the warfarin Encounter Details Date Type Department Care Team Description 01/23/2017 Telephone [facility] Catherine Aranda, Left Message To Call Heart Clinic [place] (re the warfarin) [address] [facility] [address] [place] [address] Social History Tobacco Use Types Packs/Day [...] I decide not to I will call. SupaRN Telephone Encounter - Catherine Aranda LPN - [...] [address] [place] [address] (Wo rk) 08/16/2022 Office Visit Cardiology Timothy Smith MD [address] [place] [address] (Wo rk) documented as of this encounter Visit Diagnoses Not on filedocumented in this encounter Care Teams Research Engineer Marine Equipment Relationship Specialty Start Date End Date Nas Cardenas MD PCP - General Family Practice 02/01/12 04/12/17 documented as of this encounter
--- OUTSIDE RECORDS SUMMARY | 2022-07-19 08:26 | XMS_ITS | Encounter Summary ---
:1940 Author Organization [place] Address [address] [facility] [place] [address] Care Team Providers Name Role Phone Graham Licona MD Primary Care Provider Reason for Visit Reason Comments Pacemaker Check Alert for VHR Encounter Details Date Type Department Care Team Description 04/24/2017 Documentation Only [facility] Heart Clinic [place] Bui RN, RN (Alert for VHR) [address] [facility] [address] [place] [phone] [facility] [phone] [address] [place] [address] Social History Tobacco Use Types Packs/Day Years Used Date Smoking Tobacco: Never Alcohol Use Standard Drinks/Week Comments No 0 (1 standard drink = 0.6 oz pure alcoho l) Sex Assigned at Date Recorded Not on file documented as of this encounter Progress Notes Fabiola Hurtado RN, RN - 04/24/2017 7:44 AM CDT [facility] [employer] PPM ALERT Alert for VHR, (4 [...] [address] [place] [address] (Wo rk) 08/16/2022 Office Visit Cardiology Timothy Smith MD [address] [place] [phone] (Wo rk) documented as of this encounter Visit Diagnoses Not on filedocumented in this encounter Care Teams Labor Operator Relationship Specialty Start Date End Date Graham Licona MD PCP - General Family Practice 04/13/17 01/15/18 [facility] [address] [place] [address] documented as of this encounter
--- OUTSIDE RECORDS SUMMARY | 2022-07-19 08:26 | XMS_ITS | Encounter Summary ---
:1940 Author Organization [place] Address [address] [place] [address] Care Team Providers Name Role Phone Nas Cardenas MD Primary Care Provider Reason for Referral - Closed Specialty Diagnoses / Procedures Referred By Contact Refer red To Contact Diagnoses Sinoatrial node dysfunction (H) Tammy Montenegro PA-C [address] [place] [address] Referral ID Status Reason Start Date Expiration Date Visits Requ ested Visits Authorized [id number] Closed 12/04/2016 12/04/2017 1 1 Reason for Visit Reason Comments Heart Problem CAD Irregular Heart Beat s/p PPM - Closed Specialty Diagnoses / Procedures Referred By Contact Refer red To Contact Diagnoses Sinoatrial node dysfunction (H) Timothy Smith MD [address] [place] [address] Referral ID Status Reason Start Date Expiration Date Visits Requ ested Visits Authorized [id number] Closed 03/06/2016 03/06/2017 1 1 Encounter Details Date Type Department Care Team Description 03/09/2016 Office Visit [facility] Timothy Smith MD [address] [place] [address] Cardiac pacemaker in situ (Primary Dx); Heart Clinic Tammy Carver PA-C [address] [place] [address] Sinoatrial node dysfunction (H); [address] [facility] Benign es sential hypertension; [address] Typical atrial flutter (H) [place] [phone] Social History Tobacco Use Types Packs/Day Years [...] today! Reviewed your first pacemaker check from january. Next is due on Sunday 6.28 @ 1 PM in [place] - call [phone] if you need to reschedule 2. Reviewed your angiogram/heart catheterization done in the hospital showing all of your bypasses still look great! 3. Continue to monitor for any lightheadedness or chest discomfort. 4. See Dr. Smith in 11/2016 but call earlier if need to be seen or any questions! My nurse is ZEINAB: [phone] documented in this encounter Progress Notes Tammy [...] blood pressure control. Unfortunately, he presented to [facility] on 02/01 and complained about chest fullness and increasing shortness of breath. His troponin was elevated and therefore, he was admitted [facility]. He underwent coronary angiography which showed an occluded [place] RCA, but vein grafts were all patent [...] versus pacemaker implantation. Ultimately, he underwent dual-chamber [employer] pacemaker placement on 02/04/2016. Interestingly, he [...] Asystole. He is now status post dual-chamber [employer] pacemaker implantation. His first device check [...] nurses as arranged. TAMMY MONTENEGRO PA-C MT: KALPESH Name: RADHA VILLA MRN: [id number] Account: [id number] : 1940 Service Date: 03/09/2016 Document: [id number] Tammy Montenegro PA-C - 03/09/2016 9:13 AM CDT HPI and Plan: See dictation #[id number] Orders Placed This Encounter Procedures ??? Follow-Up with Laminator Hand ??? EKG 12-lead complete w/read - Clinics [...] person and place CC Nas Cardenas MD [facility] [address] [place] [address] documented in this encounter Plan of Treatment Upcoming Encounters Date Type Specialty Care Team Description 08/16/2022 Ancillary Procedure Cardiology Timothy Smith MD [address] [place] [address] (Wo rk) 08/16/2022 Office Visit Cardiology Timothy Smith MD [address] [place] [address] (Wo rk) Scheduled Referrals Name Type Priority Associated Diagnoses Order S chedule Follow-Up with Referral Routine Sinoatrial node Expected: Laminator Hand dysfunction (H) 12/04 (Approximate), Expires: 03/09/2017 documented as of this encounter Visit Diagnoses Diagnosis Cardiac pacemaker in situ - Primary Sinoatrial node dysfunction (H) Sinoatrial node dysfunction Benign essential hypertension Essential hypertension, benign Typical atrial flutter (H) Atrial flutter documented in this encounter Care Teams Eligibility Examiner Relationship Specialty Start Date End Date Nas Cardenas MD PCP - General Family Practice 02/01/12 04/12/17 documented as of this encounter
--- OUTSIDE RECORDS SUMMARY | 2022-07-19 08:26 | XMS_ITS | Encounter Summary ---
:1940 Author Organization [place] Address [address] [facility] [place] [address] Care Team Providers Name Role Phone Nas Cardenas MD Primary Care Provider Reason for Referral Specialty Diagnoses / Procedures Referred By Contact Refer red To Contact Ankur Smith MD [address] [place] [address] Referral ID Status Reason Start Date Expiration Date Visits Requ ested Visits Authorized Scheduling Instructions ANTICOAGULATION CLINIC COLLABORATIVE MS ACTICE AGREEMENT The following represents a collaborative practice agreement among the physicians of the Clinic and staff of the Anticoagulat ion Clinic Service ([facility]) Physicians shall: 1. Refer patients requiring anticoagulat ion to a specialty service staffed by personnel of Pharmacy Services and super vised by Clinic physicians. 2. Respond to questions and referrals fr om pharmacy staff regarding delinquent or difficult patients. 3. Inform the [facility] staff when a new patie nt [...] of adverse or sub-therapeutic effects including at nae st the following: Has the patient experienced any [...] dysfunction (H) Tammy Montenegro PA-C [address] [place] [address] Referral ID Status Reason Start Date Expiration Date Visits Requ ested Visits Authorized [id number] Closed 12/04/2016 12/04/2017 1 1 Encounter Details Date Type Department Care Team Description 12/29/2016 Office Visit [facility] Buffy Montenegro PA-C [address] [place] [id number] Paroxysmal atrial fibrillation (H) (Prim arnie Dx); Heart Clinic Ankur Beauchamp MD [address] [place] [id number] Sinoatrial node dysfunction (H) [address] [facility] [address] [place] [phone] Social History Tobacco Use Types Packs/Day Years [...] flutter ablation in 2012. He later receiveda [employer] dual-chamber pacemaker for symptomatic sinus node [...] in your office. cc: Nas Cardenas MD [facility] [address] [place] [address] ANKUR SMITH MD MT: MANDIE Name: RADHA VILLA Account: [id number] : 1940 Service Date: 12/29/2016 Document: [id number] Ankur Smith MD - 12/29/2016 1:15 PM [...] [address] [place] [address] documented in this encounter Plan of Treatment Upcoming Encounters Date Type Specialty Care Team Description 08/16/2022 Ancillary Procedure Cardiology Ankur Smith MD [address] [place] [address] (Wo rk) 08/16/2022 Office Visit Cardiology Ankur Smith MD [address] [place] [address] (Wo rk) Scheduled Referrals Name Type Priority Associated Diagnoses Order S chedule INR/ANTICOAG REFERRAL Referral Routine Paroxysmal atrial E xpected: 12/29/2016, fibrillation (H) Expires: documented as of this encounter Results Holter Monitor 24 hour - Adult (01/08/2017) Narrative [facility] - 01/08/2017 [facility] [address] [place] [phone] 01/04/2017 Patient: ??Radha Covington Chart: [id number] : ??1940 Age: ??76 year old Sex: ??male Procedure: ??Holter Monitor Placed: plea se see scanned document for result once interpretation is completed. Video Game Programmer performing hook-up: ??Sheri Yuen Ankur Smith MD CV C[facility] SERVICES ORDERABL ES Performing Organization Address City/State/ZIP Code Phon e Number RADIANT documented in this encounter Visit Diagnoses Diagnosis Paroxysmal atrial fibrillation (H) - Ria jing Atrial fibrillation Sinoatrial node dysfunction (H) Sinoatrial node dysfunction Paroxysmal atrial fibrillation (H) Atrial fibrillation documented in this encounter Care Teams Front End Developer Javascript Html Css Relationship Specialty Start Date End Date Nas Cardenas MD PCP - General Family Practice 02/01/12 04/12/17 documented as of this encounter
--- OUTSIDE RECORDS SUMMARY | 2022-07-19 08:26 | XMS_ITS | Encounter Summary ---
:1940 Author Organization [place] Address [address] [place] [address] Care Team Providers Name Role Phone Nas Cardenas MD Primary Care Provider Reason for Visit Reason Comments Pacemaker Check Encounter Details Date Type Department Care Team Description 02/14/2016 Allied Health/Nurse [facility] Heart Pacemaker Check Visit Clinic [address] [place] [phone] Social History Tobacco Use Types Packs/Day Years Used Date Smoking Tobacco: Never Alcohol Use Standard Drinks/Week Comments Yes 0 (1 standard drink = 0.6 oz pure alcoho l) Sex Assigned at Date Recorded Not on file documented as of this encounter Progress Notes Mary Norris, RN, RN - 02/14/2016 11:33 AM CDT [employer] 7-10 day Post Pacemaker Device Check AP: 14 % ROTARY DRILLER HELPER: 8 % Mode: DDDR Underlying Rhythm: SR [...] [address] [place] [address] (Wo rk) 08/16/2022 Office Visit Cardiology Timothy Smith MD [address] [place] [phone] (Wo rk) documented as of this encounter Procedures Procedure Name Priority Date/Time Associated Diagnosis Comme nts HC PM DEVICE PROGRAMMING EVAL, Routine 02/14/2016 Cardiac pa cemaker in situ DUAL LEAD PACER documented in this encounter Results PM DEVICE PROGRAMMING EVAL, DUAL LEAD PACER (11032) (02/14/2016) Narrative This result has an attachment that is no t available. Steven Canchola MD PROCEDURES documented in this encounter Visit Diagnoses Diagnosis Cardiac pacemaker in situ - Primary documented in this encounter Care Teams Dining Room Hostess Relationship Specialty Start Date End Date Nas Cardenas MD PCP - General Family Practice 02/01/12 04/12/17 documented as of this encounter
--- OUTSIDE RECORDS SUMMARY | 2022-07-19 08:26 | XMS_ITS | Encounter Summary ---
:1940 Author Organization [place] Address [address] [place] [address] Care Team Providers Name Role Phone Nas Cardenas MD Primary Care Provider Reason for Referral - Closed Specialty Diagnoses / Procedures Referred By Contact Refer red To Contact Diagnoses SSS (sick sinus syndrome) (H) Typical atrial flutter (H) [facility] [address] [facility] [address] [place] [phone] Referral ID Status Reason Start Date Expiration Date Visits Requ ested Visits Authorized [id number] Closed 04/11/2016 04/11/2017 1 1 Reason for Visit Reason Comments Pacemaker Check 6 weeks S/P PPM implant Encounter Details Date Type Department Care Team Description 03/28/2016 Allied Health/Nurse [facility] Pac emaker Check (6 Visit [facility] [place] weeks S/P PPM implant) [address] [facility] [address] [place] [phone] Social History Tobacco Use Types Packs/Day Years Used Date Smoking Tobacco: Never Alcohol Use Standard Drinks/Week Comments No 0 (1 standard drink = 0.6 oz pure alcoho l) Sex Assigned at Date Recorded Not on file documented as of this encounter Progress Notes Fabiola Hurtado RN, RN - 03/28/2016 12:56 PM CDT [employer] (D) Pacemaker Device Check 6 wks S/P implant AP:2 % FISHER SWORDFISH: 10 % Mode: DDDR 60/130 Underlying Rhythm: A flutter at time of interrogation (mostly 2:1) with v- rate we75-635 BPM Heart Rate: Evidence on histogram of [...] Care Team Description 08/16/2022 Ancillary Procedure Cardiology Tmiothy Smith MD [address] [place] [phone] (Fiorella olvera) 08/16/2022 Office Visit Cardiology Timothy Smith MD [address] [place] [address] (Fiorella olvera) Scheduled Referrals Name Type Priority Associated Diagnoses Order S chedule Follow-Up with Referral Routine SSS (sick sinus Expected: Wedding Photographer syndrome) (H ) 04/11/2016 Typical atrial (Approximate) , flutter (H) Expires: 03/28/2017 documented as of this encounter Procedures Procedure Name Priority Date/Time Associated Diagnosis Comme nts HC PM DEVICE PROGRAMMING Routine 03/28/2016 Cardiac pacemaker in situ EVAL, DUAL LEAD PACER SSS (sick sinus syn drome) (H) documented in this encounter Results Holter Monitor 24 hour - Adult (04/18/2016) Narrative [facility] - 04/18/2016 [facility] [address] [facility] [address] [facility] [address] 04/13/2016 Patient: ??Haris Covington Chart: [id number] : ??1940 Age: ??75 year old Sex: ??male Procedure: ??Holter Monitor Placed: plea se see scanned document for result once interpretation is comple star. Ash Worker performing hook-up: ??Sheri Yuen Timothy Smith MD CV CARDIAC SERVICES ORDERABL ES Performing Organization Address City/State/ZIP Code Phon e Number RADIANT PM DEVICE PROGRAMMING EVAL, DUAL LEAD PACER ([address]) (03/28/2016) Narrative This result has an attachment that is no t available. Steven Canchola MD PROCEDURES documented in this encounter Visit Diagnoses Diagnosis Cardiac pacemaker in situ - Primary SSS (sick sinus syndrome) (H) Sinoatrial node dysfunction Typical atrial flutter (H) Atrial flutter SSS (sick sinus syndrome) (H) Sinoatrial node dysfunction Typical atrial flutter (H) Atrial flutter documented in this encounter Care Teams Beveling And Edging Machine Operator Relationship Specialty Start Date End Date Nas Cardenas MD PCP - General Family Practice 02/01/12 04/12/17 documented as of this encounter
--- OUTSIDE RECORDS SUMMARY | 2022-07-19 08:27 | XMS_ITS | Encounter Summary ---
:1940 Author Organization [place] Address [address] [facility] [place] [address] Care Team Providers Name Role Phone Nas Cardenas MD Primary Care Provider Encounter Details Date Type Department Care Team Description [facility] RN (Primary Dx) [facility] [address] [place] [phone] Social History Tobacco Use Types Packs/Day Years [...] [address] [place] [phone] (Wo rk) 08/16/2022 Office Visit Cardiology Timothy Smith MD [address] [place] [phone] (Wo rk) documented as of this encounter Visit Diagnoses Diagnosis Atrial flutter (H) - Primary Atrial flutter documented in this encounter Care Teams Carton Stamper Relationship Specialty Start Date End Date Nas Cardenas MD PCP - General Family Practice 02/01/12 04/12/17 documented as of this encounter
--- OUTSIDE RECORDS SUMMARY | 2022-07-19 08:27 | XMS_ITS | Encounter Summary ---
:1940 Author Organization [place] Address [address] [facility] [place] [address] Care Team Providers Name Role Phone Herminia Coleman MD Primary Care Provider Graham Licona MD Primary Care Provider [facility] Primary Care Provider [phone] Slava HernandezC Primary Care Provider Timothy Smith MD Unavailable Graham Licona MD Primary Care Provider Encounter Details Date Type Department Care Team Description 05/23/2013 Office Visit-[facility] Heart Rafael Smith MD [address] [place] [address] [place] [address] [phone] Social History Tobacco Use Types Packs/Day Years [...] Referring Physician: HERMINIA COLEMAN Referring Clinic: [facility] CURRENT DIAGNOSES 1. - Hyperlipidemia, 272.4 2. - Hypertension, 401.1 3. VT-Recent Unspecified, 410.91 4. - CAD, 414.00 5. [...] I had the pleasure of seeing Mr. Vlila for follow-up of atrial flutter ablation and [...] hr, 1 p.o. twice daily, #180 (One Ragland Eighty) MEDICATIONS REFILLED/STOPPED TODAY: metoprolol succinate 50 [...] MD [address] [place] [phone] (Fiorella olvera) 08/16/2022 Office Visit Cardiology Timothy Smith MD [address] [place] [address] (Fiorella olvera) documented as of this encounter Visit Diagnoses Not on filedocumented in this encounter Care Teams Slot Machine Department Floorperson Relationship Specialty Start Date End Date Herminia Coleman, ADA - General Family Practice 02/01/1203/31 Graham Licona MD PCP - General Family Practice 04/13/17 01/15/18 [facility] [address] [place] [address] Vinny Reinoso PCP - General 01/16/18 07/01/18 [place] [address] [place] [phone] Slava Hernandez, PCP - General Physician Customer Relations Specialist 07/02/1806/02 [facility] [address] [place] [address] Graham Licona MD PCP - General Family Medicine 06/30/21 [facility] [address] [place] [address] Timothy Smith MD Assigned Heart and 07/23/20 [address] Vascular Provider [address] [place] [address] documented as of this encounter
--- OUTSIDE RECORDS SUMMARY | 2022-07-19 08:27 | XMS_ITS | Encounter Summary ---
:1940 Author Organization [place] Address [address] [place] [address] Care Team Providers Name Role Phone Nas Cardenas MD Primary Care Provider Encounter Details Date Type Department Care Team Description 12/13/2012 Historic Results [facility] Heart Unknown, Doct or, [facility] [address] [place] [address] [address] [place] [phone] Social History Tobacco Use Types Packs/Day Years Used Date Smoking Tobacco: Never Alcohol Use Standard Drinks/Week Comments Yes 0 (1 standard drink = 0.6 oz pure alcoho l) Sex Assigned at Date Recorded Not on file documented as of this encounter Plan of Treatment Upcoming Encounters Date Type Specialty Care Team Description 08/16/2022 Ancillary Procedure Cardiology Timothy Smith MD [address] [place] [address] (Wo rk) 08/16/2022 Office Visit Cardiology Timothy Smith MD [address] [place] [phone] (Wo rk) documented as of this encounter Procedures Procedure Name Priority Date/Time Associated Comments Diagnosis [facility] HISTORICAL Routine 12/13/2012 12:00 AM Resu lts for this RESULTS CDT procedure are i n the results section. documented in this encounter Results [facility] Historical Results (12/13/2012 12:00 AM CDT) P [...] on filedocumented in this encounter Care Teams Polysom Tech Relationship Specialty Start Date End Date Nas Cardenas MD PCP - General Family Practice 02/01/12 04/12/17 documented as of this encounter
--- OUTSIDE RECORDS SUMMARY | 2022-07-19 08:27 | XMS_ITS | Encounter Summary ---
:1940 Author Organization [place] Address [facility] [place] [address] Care Team Providers Name Role Phone Unavailable Primary Care Provider Unavailable Encounter Details Date Type Department Care Team Description 10/13/2004 Historic Senior Peoplesoft Developer INTERFACED REPORT Dasha Gonzalez MD [facility] [address] [facility] [address] [place], [place] [address] (Wo rk) Social History Tobacco Use Types Packs/Day Years Used Date Smoking Tobacco: Never Alcohol Use Standard Drinks/Week Comments Yes 0 (1 standard drink = 0.6 oz pure alcoho l) Sex Assigned at Date Recorded Not on file documented as of this encounter Progress Notes Dasha Gonzalez MD - 09/06/2011 4:57 AM HOTEL RESERVATION AGENT 1st ASS'T: Sabino Ceja 2nd ASS'T: PRE-OPERATIVE [...] condition. DASHA GONZALEZ MD MT: taj Document: [id number] CC: DASHA GONZALEZ MD [place], [place] Name: RADHA FAROOQ OPERATIVE REPORT Page 2 of 2 LCN: EYE DSC: 10/13/2004 [place], [place] Name: RADHA FAROOQ MR#: : Procedure Date: -86 1940 10/13/2004 Surgeon: DASHA GONZALEZ MD OPERATIVE REPORT Page 1 of 2 L RESERVATION AGENT documented in this encounter Plan of Treatment Upcoming Encounters Date Type Specialty Care Team Description 08/16/2022 Ancillary Procedure Cardiology Timothy Smith MD [address] [place] [address] (Wo rk) 08/16/2022 Office Visit Cardiology Timothy Smith MD [address] [place] [phone] (Fiorella rk) documented as of this encounter Visit Diagnoses Not on filedocumented in this encounter
--- OUTSIDE RECORDS SUMMARY | 2022-07-19 08:27 | XMS_ITS | Encounter Summary ---
:1940 Author Organization [place] Address [address] [place] [address] Care Team Providers Name Role Phone Nas Cardenas MD Primary Care Provider Encounter Details Date Type Department Care Team Description 02/27/2013 Hospital Encounter [facility] Timothy Smith MD Atrial flutter (H) [facility] [address] ([address] D x) [address] [place] [address] [place] [phone] Social History Tobacco Use Types Packs/Day Years [...] Instructions Discharge InstructionsAnn Marie Reyes RN - 02/27/2013 5:26 PM CDT 1. See an EP BATH HOUSE ATTENDANT in 1 month, with ECG 2. See [...] beats should occur less often. Questions? Call [facility] Physician Heart at [phone]. documented in this encounter Medications at Time of Discharge Medication Sig Dispensed Refills Start Date End Date ACYCLOVIR 400 MG OR TABS 1 TABLET 3 TIMES 30 6 04/25 DAILY-as need for Cold sores fenofibrate 160 MG tablet Take 160 mg by 0 mouth daily. lisinopril Take 5 mg by mouth 0 02/04/20122015 (PRINIVIL,ZESTRIL) 5 MG daily. tablet metoprolol (TOPROL-XL) 50 Take 50 mg by 0 12/20/2015 MG 24 hr tablet mouth 2 times daily metoprolol (TOPROL-XL) 50 Take 100 mg by 0 201112/10/2014 MG 24 hr tablet mouth daily. NITROGLYCERIN SL Place 0.4 mg under 0 12/29/2016 the tongue every 5 minutes as needed PANTOPRAZOLE SODIUM PO Take 40 mg by 0 07/07/2020 mouth every morning (before breakfast). pravastatin (PRAVACHOL) 80 Take 80 mg by 0 06/30/2021 MG tablet mouth At Bedtime PSEUDOEPHEDRINE HCL Take 60 mg by 0 [...] was discharged at 1909 per W/C with route delivery service driver. documented in this encounter H&P Notes Timothy Smith MD - 02/26/2013 2:35 PM CDT documented in this encounter Plan of Treatment Upcoming Encounters Date Type Specialty Care Team Description 08/16/2022 Ancillary Procedure Cardiology Timothy Smith MD [address] [place] [id number] (Wo rk) 08/16/2022 Office Visit Cardiology Timothy Smith MD [address] [place] [id number] (Wo rk) documented as of this encounter [...] 12-lead, tracing only (02/27/2013 2:47 PM CDT) [facility] Method Time Signature Interpretation ECG Click View RADIOLOGY Image link RESULTS to view waveform and result Specimen (Source) Anatomical Collection Method Collection Time Re ceived Time Location / / Volume Laterality 02/27/2013 2:47 PM CDT Timothy Smith MD ECG ORDERABLES Performing Organization Address City/State/ZIP Code Phon e Number RADIOLOGY RESULTS ATRIAL FLUTTER REPORT - HIM Imaging Scan (02/27/2013 2:16 PM CDT) Anatomical Region Laterality Modality Other Narrative This result has an attachment that is no t available. Timothy Smith MD IMG DIAGNOSTIC IMAGING ORDER ANN EKG 12-lead, tracing only (02/27/2013 12:40 PM CDT) [facility] Method Time Signature Interpretation ECG Click View RADIOLOGY Image link RESULTS to view waveform and result Specimen (Source) Anatomical Collection Method Collection Time Re ceived Time Location / / Volume Laterality 02/27/2013 12:40 PM CDT Timothy Smith MD ECG ORDERABLES Performing Organization Address City/State/ZIP Code Phon e Number RADIOLOGY RESULTS (ABNORMAL) INR (02/27/2013 11:45 AM CDT) athologist [facility] INR 2.66 (H) 0.86 - 1.14 [facility] Specimen Anatomical Collection Method Collection Time Receive d Time (Source) Location / / Volume Laterality Blood specimen 02/27/2013 11:45 3 (specimen) AM CDT 11:54 AM CDT Timothy Smith MD LAB - BLOOD ORDERABLES Performing Organization Address City/State/ZIP Code Phon e Number [facility] [address] [address] [facility] CBC with platelets (02/27/2013 11:45 AM CDT) athologist Signature WBC 6.0 4.0 - 11.0 [place] 10e9/L [facility] RBC Count 4.89 4.4 - 5.9 [place] 10e12/L [facility] Hemoglobin 15.6 13.3 - [place] 17.7 g/dL [facility] Hematocrit 46.4 40.0 - [facility] 53.0 % [facility] MCV 95 78 - [address] [place] [address] [facility] MCH 31.9 26.5 - [facility] 33.[address] [facility] MCHC 33.6 31.5 - [facility] 36.5 g/dL [facility] RDW 14.0 10.0 - [place] 15.0 % [facility] Platelet Count 191 150 - 450 [place] 10e9/L [facility] Specimen Anatomical Collection Method Collection Time Receive d Time (Source) Location / / Volume Laterality Blood specimen 02/27/2013 11:45 3 (specimen) AM CDT 11:54 AM CDT Timothy Smith MD LAB - BLOOD ORDERABLES Performing Organization Address City/State/ZIP Code Phon e Number [facility] [address] [place] [place] [address] [facility] (ABNORMAL) Basic metabolic panel (02/27/2013 11:45 AM CDT) P athologist Signature Sodium 139 133 - 144 [place] mmol/L [facility] Potassium 4.3 3.4 - 5.3 [place] mmol/L [facility] Chloride 102 94 - 109 [place] mmol/L [facility] Carbon Dioxide 24 20 - 32 [place] mmol/L [facility] Anion Gap 12 6 - 17 [place] mmol/L [facility] Glucose 183 (H) 60 - 99 [place] mg/dL [facility] Urea Nitrogen 20 7 - 30 [place] mg/dL [facility] Creatinine 0.79 0.66 - [facility] 1.25 mg/dL [facility] GFR Estimate >90 >60 [place] mL/min/1.[address] LAB GFR Estimate If >90 >60 [place] Black mL/min/1.[address] LAB Calcium 8.7 8.5 - 10.4 [place] mg/dL [facility] Specimen Anatomical Collection Method Collection Time Receive d Time (Source) Location / / Volume Laterality Blood specimen 02/27/2013 11:45 3 (specimen) AM CDT 11:54 AM CDT Timothy Smith MD LAB - BLOOD ORDERABLES Performing Organization Address City/State/ZIP Code [facility] e Number [facility] [address] [address] [phone] [facility] documented in this encounter Visit [...] Intra-procedure documented in this encounter Care Teams Mill Worker Relationship Specialty Start Date End Date Nas Cardenas MD PCP - General Family Practice 02/01/12 04/12/17 documented as of this encounter
--- OUTSIDE RECORDS SUMMARY | 2022-07-19 08:27 | XMS_ITS | Encounter Summary ---
:1940 Author Organization [place] Address [address] [place] [address] Care Team Providers Name Role Phone Nas Cardenas MD Primary Care Provider Encounter Details Date Type Department Care Team Description 02/02/2012 Historic Results [facility] Unknown, [facility] ider [facility] [place] [address] [facility] [address] [place] [phone] Social History Tobacco Use Types Packs/Day Years [...] [address] [place] [id number] (Wo rk) 08/16/2022 Office Visit Cardiology Timothy Smith MD [address] [place] [phone] (Wo rk) documented as of this encounter Procedures Procedure Name Priority Date/Time Associated Diagnosis Comme nts CARDIAC CATH - HIM SCAN 02/02/2012 12:00 AM CDT - ARCHIVE documented in this encounter Results CARDIAC CATH - HIM SCAN - ARCHIVE (02/02/2012 12:00 AM CDT) Anatomical Region Laterality Modality Other Specimen (Source) Anatomical Location Collection Method / Collectio n Time Received Time / Laterality Volume 02/02/2012 Narrative This result has an attachment that is no t available. Provider Scan CV ELECTROPHYSIOLOGY ORDERAB LES documented in this encounter Visit Diagnoses Not on filedocumented in this encounter Care Teams Gut Puller Relationship Specialty Start Date End Date Nas Cardenas MD PCP - General Family Practice 02/01/12 04/12/17 documented as of this encounter
--- OUTSIDE RECORDS SUMMARY | 2022-07-19 08:27 | XMS_ITS | Encounter Summary ---
:1940 Author Organization [place]ota Address [facility] [place] [address] Care Team Providers Name Role Phone Nas Cardenas MD Primary Care Provider Reason for Visit Reason Comments Chest Pain awoke with pain at 0600 05/10 Auth/Cert - Closed Specialty Diagnoses / Procedures Referred By Contact Refer red To Contact Intensive Care Diagnoses Unstable angina (H) [facility] [address] [place] [address] Phone: Fax: Referral ID Status Reason Start Date Expiration Date Visits Requ ested Visits Authorized [id number] Closed 02/01/2012 07/30/2012 1 1 Encounter Details Date Type Department Care Team Description 02/01/2012 - [facility] MD [facility] [address] [place], [place] [id number] Unstable angina (H); 02/04/2012 Encounter [facility] Jayy Gill MD [address] [place] [address] HTN (hypertension); Surgical Atrial flutter (H) [address] [place] [address] Social History Tobacco Use Types [...] on 02/02/2012 which showed that the old brevig mission vessels proximally occluded but the SVGs remain [...] on 02/02/2012. The angiogram showed the old brevig mission vessels proximally occluded but the SVGs remain [...] MD MT: #[id number] Name: RADHA FAROOQ Account: [id number] : 1940 Admit Date: Discharge Date: Document: [id number] cc: Nas Cardenas MD documented in this [...] any questions that you may have.] ?? [id number] [place] [address]. All rights reserved. This information is not [...] Extreme drowsiness, confusion, dizziness or fainting ?? [phone] [facility], [address] [place] [address], [place] [address]. All rights reserved. This information is not [...] any questions that you may have.] ?? [phone] [facility], [address] [place] [address], [place] [address]. All rights reserved. This information is not [...] 04/25/2004 TABS DAILY-as need for Cold sores aspirin 81 MG EC Take 81 mg [...] 2 times daily. tabletIndications: Atrial flutter (H) pravastatin Take 80 mg by mouth At 0 0 06/30/2021 (PRAVACHOL) 80 MG Bedtime tablet warfarin (COUMADIN) 5 Take 1 tablet by [...] IP LABS (Last four results) BMP Lab 02/04/12 0618 02/02/12 0526 02/01/12 0845 NA 142 139 [...] and Plan: A: 1)stable cardiac condition 2)S/P NJ 3)Hypertension-improved control 4)atrial flutter-reasonable heart rate control [...] Transfer Skill: Sit to Stand Level of [place]: Sit/Stand independent IADL Evaluation Previous Responsibilities yardwork;medication [...] flutter/sinus rhythm Assessment and Plan: A: 1)S/P NJ with elevated troponin 2)atrial flutter with relatively [...] overnight oximetry. 2L nasal cannula, SpO2 95%. RT Ifeoma 02/02/2012 11:38 PM José Luevano MD - [...] Luevano MD - 02/02/2012 11:38 AM CDT [facility] Cardiology Progress Note Problem List: Patient [...] Gill MD - 02/01/2012 2:41 PM CDT [facility] Hospitalist Admission Note Name: Radha Farooq Date [...] T wave abnormality. Heart rate 78 bpm, UT Interval 178 ms, QT/QTc 378/430 ms, R [...] past medical history of CABG times 4In 1986 and coronary artery disease who presents with [...] study night of: 02/02/2012. Study running from 8009 to 0516. (See attached graphics in paper chart) This [...] VAZQUEZ MD MT: Name: RADHA FAROOQ Account: [id number] : 1940 Procedure Date: 02/02/2012 Document: [id number] Umair Alves MD - 02/02/2012 2:58 PM [...] embolus, arrhythmia, use of stents, need for terminal worker thienopyridine therapy, restenosis, the alternative of medical [...] needle, and with Seldinger technique, a 6 Venezuelan sheath placed in the right radial artery. We gave no additional units of heparin since his heparin was stopped upon arrival in catheter builder. We gave 2.5 mg of verapamil and [...] to cannulate the SVG to RCA 2) Hopi CAG The Hopi RCA was cannulated with a 5Fr Manas catheter and the LMCA was cannulated with a 6Fr JL4. Orthogonal views were performed. 2. Left heart catheterization. We exchanged for e5Errzzm pigtail catheter. This catheter was advanced under [...] to moderate D1 fills via ipsicollaterals from brevig mission LAD via injection of SVG. There is [...] a retrograde fashion via injection of the brevig mission RCA. There is no significant narrowing in [...] to the distal anastamotic site. 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 I have explained to the patient the risks of , NJ, stroke, hematoma, possible urgent bypass surgery for [...] coronary syndrome. HISTORY OF PRESENT ILLNESS: Mr. Radha Farooq is a very pleasant 71-year-old gentleman [...] he had a very similar presentation in [place], in [place], at the [facility], and underwent cardiac catheterization and was told [...] in 1985 with a 4-vessel bypass at [facility]. He has not had any further [...] LUEVANO MD MT: #[id number] Name: RADHA FAROOQ MRN: [id number] Account: [id number] : 1940 Consult Date: 02/01/2012 Document: [id number] José Luevano MD - 02/01/2012 4:48 PM [...] patient prior to being taken to the catheter builder tomorrow morning. documented in this encounter ED [...] T wave abnormality. Heart rate 78 bpm, UT Interval 178 ms, QT/QTc 378/430 ms, R [...] time: independent of procedures, was 65 minutes. IMitra, am serving as a scribe on February [...] Individualization/Patient-Specific Goal (Adult,OB,Behavioral The patient and/or their customer success representative will achieve their patient-specific goals related to the plan of care. The patient-specific goals include: RN: reviewed discharge and medication listing with patient and . Provided Lovenox teaching, warfarin teaching, and provided educational materials regarding Lisinopril, metoprolol, lovenox, and warfarin. Patients prescriptions were faxed to [facility]. Patient awaiting staff to bring to car by wheel chair for transport home by /POV at 1541 hours. Denies dizziness, SOB, or pain. Pt ambulated hallways several times with hospital staff/tolerated well with no SOB, dizziness, pain. Plan of Care - Kimberly Nur RN - 02/04/2012 5:42 AM CDT Problem: IP GENERAL POC-ADULT,OB,BEHAVIORAL FVCPM Goal: Individualization/Patient-Specific Goal (Adult,OB,Behavioral The patient and/or their customer success representative will achieve their patient-specific goals related to the plan of care. The patient-specific goals include: Outcome: Improving Pt rested well throughout night. VSS. No c/o CP/discomfort. Tele Aflutter with CVR, but looks like SR at times. Angio done and 01/31. Sheath site on L arm with dressing that is CDI. Cardio following. Plan for possible ablation at [facility]. Will continue to monitor. Plan of Care - Sulema Sexton RN - 02/03/2012 10:53 PM CDT Problem: IP GENERAL POC-ADULT,OB,BEHAVIORAL FVCPM Goal: Individualization/Patient-Specific Goal (Adult,OB,Behavioral The patient and/or their customer success representative will achieve their patient-specific goals related [...] Occupational Therapy Goals The patient and/or their customer success representative will achieve their patient-specific goals related [...] and scheduling cardiac rehab. Pt lives in [place] so stated he didn't want to have [...] physical activity to decrease risk of another NJ.. DC from cardiac OT Plan of Care - Sharla Veloz RN - 02/03/2012 2:46 PM CDT Problem: IP GENERAL POC-ADULT,OB,BEHAVIORAL FVCPM Goal: Individualization/Patient-Specific Goal (Adult,OB,Behavioral The patient and/or their customer success representative will achieve their patient-specific goals related to the plan of care. The patient-specific goals include: Outcome: No Change Bp elevated this afternoon, 150-180/100-113. Tele was sr until 1015 when pt went into aflutter/fib. Pt denies pain, sob, chest pain. Cms intact in ue's. Pt denies numbness/tingling. Pt up to br multiples without problems. [place] [facility] [place] Plan of Care - Sharla Veloz RN - 02/03/2012 2:16 PM CDT Report called to Chitra EL on [facility]. Provider Notification - Sharla Veloz RN [...] Individualization/Patient-Specific Goal (Adult,OB,Behavioral The patient and/or their customer success representative will achieve their patient-specific goals related [...] [address] [place] [id number] (Wo rk) 08/16/2022 Office Visit Cardiology Timothy Smith MD [address] [place] [id number] (Wo rk) Pending Results Name Type Priority [...] study night of: 02/02/2012. Study running from 7739 to 2181. (See attached graphics in paper chart) This study was: 1. 2 liters of oxygen by nasal cannula 2. Abnormal study Findings include: 1. Bradycardia 2. Tachycardia 3. Multiple desaturations below 90% 4. Repetitive and suggestive of Sleep D isordered Breathing 5. Asleep sats documented: 92% Suggested follow up: 1. Clinical correlation 2. Schedule Outpatient Sleep Consultatio n Other: Abnormal study with REM pattern-l karol episodic desaturations despite O2, to a anderson of 81%; 2% of recording <89% saturation. Mean pulse 80 beats per minute with rate 28-119 bpm or yoselin-tachycardia in response to desaturations. JULIANAN VAZQUEZ MD MT: rh Name: RADHA FAROOQ Account: [id number] : 1940 Procedure Date: 02/02/20 12 Document: [id number] Julianna Vazquez MD PFT ORDERABLES (ABNORMAL) Glucose by meter (02/04/2012 11:34 AM CDT) P athologist Signature Glucose 130 (H) 60 - 99 POINT OF CARE mg/dL TEST, GLUCOSE Specimen Anatomical Collection Method Collection Time Receive d Time (Source) Location / / Volume Laterality 02/04/2012 11:34 02/04/2012 AM CDT 11:50 AM CDT Jayy LAGUNAS - BEAKER POCT Performing Organization Address [facility]/ZIP [facility] Phon e Number FV POINT OF CARE TEST, GLUCOSE POINT OF CARE TEST, GLUCOSE (ABNORMAL) Glucose by meter (02/04/2012 7:25 AM CDT) athologist Signature Glucose 138 (H) 60 - 99 POINT OF CARE mg/dL TEST, GLUCOSE Comment: RN/Dr notified Specimen Anatomical Collection Method Collection Time Receive d Time (Source) Location / / Volume Laterality 02/04/2012 7:25 AM 2 7:50 CDT AM CDT Jayy LAGUNAS - LIYA POCT Performing Organization Address [facility] Phon e Number FV POINT OF CARE TEST, GLUCOSE POINT OF CARE TEST, GLUCOSE (ABNORMAL) INR (02/04/2012 6:18 AM CDT) athologist [facility] INR 1.15 (H) 0.86 - 1.14 [facility] LAB Specimen Anatomical Collection Method Collection Time Receive d Time (Source) Location / / Volume Laterality Blood specimen 02/04/2012 6:18 AM 012 6:31 (specimen) CDT AM CDT Jayy Gill MD LAB - BLOOD ORDERABLES Performing Organization Address [facility] Phon e Number M [facility] [address] [place], [place] [address] [facility] CBC (AM Draw) (02/04/2012 6:18 AM CDT) athologist Signature WBC 7.7 4.0 - 11.0 [place] 10e9/L [facility] RBC Count 4.90 4.4 - 5.9 [place] 10e12/L [facility] Hemoglobin 15.7 13.3 - [place] 17.7 g/dL [facility] Hematocrit 47.1 40.0 - [facility] 53.0 % [facility] MCV 96 78 - 100 [place] fl [facility] MCH 32.0 26.5 - [facility] 33.0 pg [facility] MCHC 33.3 31.5 - [facility] 36.5 g/dL [facility] RDW 14.1 10.0 - [facility] 15.0 % [facility] Platelet Count 152 150 - 450 [place] 10e9/L [facility] Specimen Anatomical Collection Method Collection Time Receive d Time (Source) Location / / Volume Laterality Blood specimen 02/04/2012 6:18 AM 012 6:31 (specimen) CDT AM CDT Jayy Gill MD LAB - BLOOD ORDERABLES Performing Organization Address City/State/ZIP Code Phon e Number M [address] [facility] (ABNORMAL) Basic metabolic panel (02/04/2012 6:18 AM CDT) athologist Signature Sodium 142 133 - 144 [place] mmol/L [facility] Potassium 4.1 3.4 - 5.3 [place] mmol/L [facility] Chloride 101 94 - 109 [place] mmol/L [facility] Carbon Dioxide 30 20 - 32 [place] mmol/L [facility] Anion Gap 11 6 - 17 [place] mmol/L [facility] Glucose 119 (H) 60 - 99 [place] mg/dL [facility] Urea Nitrogen 14 7 - 30 [place] mg/dL [facility] Creatinine 0.68 0.66 - [facility] 1.25 mg/dL [facility] GFR Estimate >90 >60 [place] mL/min/[address] [place] [address] LAB GFR Estimate If >90 >60 [place] Black mL/min/1.[address] [place] [address] LAB Calcium 8.8 8.5 - 10.4 [place] mg/dL [facility] Specimen Anatomical Collection Method Collection Time Receive d Time (Source) Location / / Volume Laterality Blood specimen 02/04/2012 6:18 AM 012 6:31 (specimen) CDT AM CDT Jayy Gill MD LAB - BLOOD ORDERABLES Performing Organization Address City/State/ZIP Code Phon e Number [facility] [address] [place], [place] [address] [facility] (ABNORMAL) Glucose by meter (02/03/2012 8:41 PM CDT) P athologist Signature Glucose 146 (H) 60 - 99 POINT OF CARE mg/dL TEST, GLUCOSE Specimen Anatomical Collection Method Collection Time Receive d Time (Source) Location / / Volume Laterality 02/03/2012 8:41 PM 2 8:50 CDT PM CDT Jayy LAGUNAS - BEAKER POCT Performing Organization Address City/[facility]/ZIP Code Phon e Number FV POINT OF CARE TEST, GLUCOSE POINT OF CARE TEST, GLUCOSE Methicillin Resistant Staph Aureus PCR (02/03/2012 8:25 PM CDT) Component Value Ref Test Analysis Performed At Patholo gist Range Method Time Signature Specimen Nares [facility] LAB Methicillin MRSA Negative: SA Negative ? ?MRSA and Staphylococcus aureus target DNA not [facility] Resist/Sens S. detected, presumed negative for MRSA and SA colonization or the number of MICROBIOLOGY aureus PCR bacteria present may be bel ow the limit of detection for the assay. FDA approved assay performed using [employer] GeneXpert(R) real-ti me PCR. Specimen (Source) Anatomical Collection Method Collection Time Re ceived Time Location / / Volume Laterality Nasal structure 02/03/2012 8:25 2 9:02 (body structure) PM CDT PM CDT Jeffrey Stallworth MD LAB - MICRO GENERAL ORDERABL ES Performing Organization Address City/[facility]/ZIP Code Phon e Number [address] [address] [facility] MICROBIOLOGY (ABNORMAL) Glucose by meter (02/03/2012 6:08 PM CDT) P athologist Signature Glucose 163 (H) 60 - 99 POINT OF CARE mg/dL TEST, GLUCOSE Specimen Anatomical Collection Method Collection Time Receive d Time (Source) Location / / Volume Laterality 02/03/2012 6:08 PM 2 6:25 CDT PM CDT Jayy LAGUNAS - BEAKER POCT Performing Organization Address City/[facility]/ZIP Code Phon e Number FV POINT OF CARE TEST, GLUCOSE POINT OF CARE TEST, GLUCOSE (ABNORMAL) Glucose by meter (02/03/2012 12:18 PM CDT) P athologist Signature Glucose 118 (H) 60 - 99 POINT OF CARE mg/dL TEST, GLUCOSE Specimen Anatomical Collection Method Collection Time Receive d Time (Source) Location / / Volume Laterality 02/03/2012 12:18 02/03/2012 PM CDT 12:35 PM CDT Jayy Gill MD LAB - BEJOHN PAUL POCT Performing Organization Address [facility] Phon e Number FV POINT [...] LAGUNAS - LIYA POCT Performing Organization Address [facility] Phon e Number FV POINT OF CARE TEST, GLUCOSE POINT OF CARE TEST, GLUCOSE EKG 12-lead, tracing only (02/03/2012 5:59 AM CDT) Component Value Ref Range Test Analysis Performed Pathologis t Method Time At Signature Ventricular Rate 76 BPM RADIOLOGY RESULTS Atrial Rate 76 BPM RADIOLOGY RESULTS UT Interval 168 ms RADIOLOGY RESULTS QRS Duration 106 ms RADIOLOGY RESULTS QT 368 ms RADIOLOGY RESULTS QTc 414 ms RADIOLOGY RESULTS P Willard 69 degrees RADIOLOGY RESULTS R AXIS 1 degrees RADIOLOGY RESULTS T Willard 117 degrees RADIOLOGY RESULTS Interpretation Sinus rhythm [...] RESULTS Atrial Rate 78 BPM RADIOLOGY RESULTS UT Interval 168 ms RADIOLOGY RESULTS QRS Duration 100 ms RADIOLOGY RESULTS QT 364 ms RADIOLOGY RESULTS QTc 414 ms RADIOLOGY RESULTS P Willard 75 degrees RADIOLOGY RESULTS R AXIS 3 degrees RADIOLOGY RESULTS T Willard 126 degrees RADIOLOGY RESULTS Interpretation Sinus rhythm [...] Gill MD ECG ORDERABLES Performing Organization Address City/[facility]/ZIP Code Phon e Number RADIOLOGY RESULTS (ABNORMAL) Platelet count (02/03/2012 5:50 AM CDT) P athologist Signature Platelet Count 140 (L) 150 - 450 [place] 10e9/L [facility] Specimen Anatomical Collection Method Collection Time Receive d Time (Source) Location / / Volume Laterality Blood specimen 02/03/2012 5:50 AM 012 5:58 (specimen) CDT AM CDT Sabnio Lujan [facility] LAB - BLOOD ORDERABLES Performing Organization Address City/[facility]/ZIP Code Phon e Number [employer] [address] [place], [place] [address] [facility] INR (02/03/2012 5:50 AM CDT) athologist Signature INR 1.09 0.86 - 1.14 [facility] LAB Specimen Anatomical Collection Method Collection Time Receive d Time (Source) Location / / Volume Laterality Blood specimen 02/03/2012 5:50 AM 012 5:58 (specimen) CDT AM CDT José Luevano MD LAB - BLOOD ORDERABLES Performing Organization Address City/[facility]/ZIP Code Phon e Number [facility] [address] [place], [place] [address] [facility] ECG - HIM ECG Scan (02/03/2012) Narrative This result has an attachment that is no t available. Jayy Gill MD ECG ORDERABLES Glucose by meter (02/02/2012 9:00 PM CDT) athologist Signature Glucose 97 60 - 99 POINT OF CARE mg/dL TEST, GLUCOSE Specimen Anatomical Collection Method Collection Time Receive d Time (Source) Location / / Volume Laterality 02/02/2012 9:00 PM 2 9:10 CDT PM CDT Jayy LAGUNAS - BEAKER POCT Performing Organization Address City/[facility]/ZIP Code Phon e Number FV POINT OF CARE TEST, GLUCOSE POINT OF CARE TEST, GLUCOSE (ABNORMAL) Glucose by meter (02/02/2012 5:39 PM CDT) athologist Signature Glucose 138 (H) 60 - 99 POINT OF CARE mg/dL TEST, GLUCOSE Specimen Anatomical Collection Method Collection Time Receive d Time (Source) Location / / Volume Laterality 02/02/2012 5:39 PM 2 5:45 CDT PM CDT Jayy LAGUNAS - BEJOHN PAUL POCT Performing Organization Address City/[facility]/ZIP [facility] Phon e Number FV POINT OF CARE TEST, GLUCOSE POINT OF CARE TEST, GLUCOSE INR (02/02/2012 4:30 PM CDT) athologist Signature INR 1.05 0.86 - 1.14 [facility] LAB Specimen Anatomical Collection Method Collection Time Receive d Time (Source) Location / / Volume Laterality Blood specimen 02/02/2012 4:30 PM 012 4:43 (specimen) CDT PM CDT Sabino Lujan [facility] LAB - BLOOD ORDERABLES Performing Organization Address City/State/ZIP Code Phon e Number [facility] [address] [place], [place] [address] [facility] Heart Cath Left heart cath (02/02/2012 3:32 PM CDT) Anatomical Region Laterality Modality Other Specimen (Source) Anatomical Collection Method Collection Time Re ceived Time Location / / Volume Laterality 02/02/2012 3:32 PM CDT Impressions 02/03/2012 10:17 AM CDT RADHA FAROOQ PROCEDURES PERFORMED: 1. ??Left internal mammary angiogram. 2. ??Saphenous venous bypass graft angio graphy. 3. ??Hopi coronary angiography. 4. ??Left heart catheterization. 5. [...] and with Seldinger techniqu e, a 6 Venezuelan sheath placed in the left radial artery. ??We gave 2.5 mg of verapamil and 400 mcg nitroglycerin intra-arterially. ??The jose francisco lawrence had just been on a heparin drip, and we did not give him an y additional heparin as it had been stopped on admission here to e lab. ??We advanced a 4 Venezuelan left internal mammary catheter an d seated [...] angiography was performed in orthogonal views. 3. ??Hopi coronary angiogram. ??We use d a 5 Venezuelan Manas catheter to cannulate the ostium of the right fung ry artery. ??Right coronary angiography was performed in orthogonal views. ??We later exchanged for first a JL4 4 Venezuelan and then finall y a JL4 6 Venezuelan catheter which allowed us to seat in [...] vessel. ??There is filling of both septal car lot attendant bra nches and a small to moderate-sized [...] narrowing distal to the distal anastomotic site. Hopi coronary arteries: 1. ??The brevig mission left main: ??This vessel of occluded in [...] small terminal marginal branch system. ?? 3. ??Hopi right coronary artery: ??Thi s is a dominant vessel. ??It has a proximal 85-90% narrowing. ??There is competitive filling seen in the mid and distal right coronary with i njection of the brevig mission right coronary artery from the patent bypass g raft. ??The right coronary distal to the distal anastomotic site of the bypass graft has no significant narrowing. ASSESSMENT: ??All of Mr. Farooq's brevig mission coronary arteries are proximally occluded or severely [...] 02/02/2012 AM CDT 11:50 AM CDT Jayy NICKERSON POCT Performing Organization Address City/[facility]/ZIP Code Phon e Number FV POINT OF CARE TEST, GLUCOSE POINT OF CARE TEST, GLUCOSE (ABNORMAL) Glucose by meter (02/02/2012 7:32 AM CDT) athologist Signature Glucose 148 (H) 60 - 99 POINT OF CARE mg/dL TEST, GLUCOSE Specimen Anatomical Collection Method Collection Time Receive d Time (Source) Location / / Volume Laterality 02/02/2012 7:32 AM 2 8:16 CDT AM CDT Jayy NICKERSON POCT Performing Organization Address City/[facility]/ZIP [facility] Phon e Number FV POINT OF CARE TEST, GLUCOSE POINT OF CARE TEST, GLUCOSE TSH (02/02/2012 5:26 AM CDT) athologist Signature TSH 1.64 0.4 - 5.0 [facility] LAB Specimen Anatomical Collection Method Collection Time Receive d Time (Source) Location / / Volume Laterality 02/02/2012 5:26 AM 2 5:41 CDT AM CDT Jayy Gill MD LAB - BLOOD ORDERABLES Performing Organization Address City/[facility]/ZIP [facility] Phon e Number [facility] [address] [place], [place] [address] [facility] Heparin Xa (10a) Level (02/02/2012 5:26 AM CDT) athologist Signature Heparin 10A 0.20 IU/mL [facility] LAB Comment: Therapeutic Range: ?? UFH: ?? 0.15-0.35 IU/mL for low ?intensity dosing ?0.30-0.70 IU/mL for high ?intensity dosing ?? LMWH: ??1.00-2.00 IU/mL if 4-6 h ?post daily dosing ?0.60-1.00 IU/mL if 4-6 h ?post twice a day dosin g Specimen Anatomical Collection Method Collection Time Receive d Time (Source) Location / / Volume Laterality Blood specimen 02/02/2012 5:26 AM 012 (specimen) CDT 5:41 AM CDT Jayy Gill MD LAB - BLOOD ORDERABLES Performing Organization Address City/State/ZIP Code Phon e Number [facility] [address] [place] [address] [facility] LAB (ABNORMAL) Basic metabolic panel (02/02/2012 5:26 AM CDT) Analysis Performed At Patho logist Time Signature Sodium 139 133 - 144 [place] mmol/L [facility] Potassium 4.1 3.4 - 5.3 [facility] [place] mmol/L [facility] Chloride 101 94 - 109 [place] mmol/L [facility] Carbon Dioxide 27 20 - 32 [place] mmol/L [facility] Anion Gap 10 6 - 17 [place] mmol/L [facility] Glucose 140 (H) 60 - 99 [place] mg/dL [facility] Urea Nitrogen 16 7 - 30 [place] mg/dL [facility] Creatinine 0.59 (L) 0.66 [facility]/dL [facility] GFR Estimate >90 >60 [place] mL/min/1.[address] LAB GFR Estimate If >90 >60 [place] Black mL/min/1.[address] LAB Calcium 8.7 8.5 - 10.4 [place] mg/dL [facility] Specimen Anatomical Collection Method Collection Time Receive d Time (Source) Location / / Volume Laterality Blood specimen 02/02/2012 5:26 AM 012 5:41 (specimen) CDT AM CDT Jayy Gill MD LAB - BLOOD ORDERABLES Performing Organization Address [facility] Phon e Number Karey [facility] [address], [place] [address] [facility] (ABNORMAL) Hemoglobin A1c (02/02/2012 5:26 AM CDT) P athologist Signature Hemoglobin A1C 6.6 (H) 4.3 - 6.0 [facility] Specimen Anatomical Collection Method Collection Time Receive d Time (Source) Location / / Volume Laterality Blood specimen 02/02/2012 5:26 AM 012 5:41 (specimen) CDT AM CDT Jayy Gill MD LAB - BLOOD ORDERABLES Performing Organization Address [facility] Phon e Number [place] [address], [place] [address] [facility] (ABNORMAL) Troponin I - every 6 hours x 4 (02/02/2012 5:26 AM CDT) Analysis Performed At Patho logist Time Signature Troponin I ES 5.030 (HH) 0.000 - [place] 0.034 ug/L [facility] Comment: Critical Value called to and read back sam MICHELE (ICU) ON 5.4.12 AT 0615 BY EK Specimen Anatomical Collection Method Collection Time Receive d Time (Source) Location / / Volume Laterality Blood specimen 02/02/2012 5:26 AM 012 5:41 (specimen) CDT AM CDT Jayy Gill MD LAB - BLOOD ORDERABLES Performing Organization Address [facility]/ZIP [facility] Phon e Number [place] [address], [place] [address] [facility] OXIMETRY COMPREHENSIVE REPORT - HIM Other Scan (02/02/2012) Narrative This result has an attachment that is no t available. Julianna Vazquez MD IP NURSING ACTIVITY (ABNORMAL) Troponin I - every 6 hours x 4 (02/01/2012 11:59 PM CDT) Analysis Performed At Patho logist Time Signature Troponin I ES 4.260 () 0.000 - [place] 0.034 ug/L [facility] Comment: Critical Value called to and read back sam GANN(ICU)ON [id number] @0041 TT Specimen Anatomical Collection Method Collection Time Receive d Time (Source) Location / / Volume Laterality Blood specimen 02/01/2012 11:59 2 (specimen) PM CDT 12:07 AM CDT Jayy Gill MD LAB - BLOOD ORDERABLES Performing Organization Address City/State/ZIP Code Phon e Number M [place] [address] [place] [address] [facility] (ABNORMAL) Glucose by meter (02/01/2012 9:15 [...] P athologist Signature Heparin 10A 0.26 IU/mL [facility] Comment: Therapeutic Range: ?? UFH: ?? [...] LAB - BLOOD ORDERABLES Performing Organization Address [facility] Phon e Number M [facility] [address], [place] [address] [facility] (ABNORMAL) Troponin I - every 6 hours x 4 (02/01/2012 6:30 PM CDT) Analysis Performed At Patho logist Time Signature Troponin I ES 2.330 (HH) 0.000 - [place] 0.034 ug/L [facility] Comment: Critical Value called to and read back sam MCKOY (ANCHORER) AT 1900 05.12, TD Specimen Anatomical Collection Method Collection Time Receive d Time (Source) Location / / Volume Laterality Blood specimen 02/01/2012 6:30 PM 012 6:34 (specimen) CDT PM CDT Jayy Gill MD LAB - BLOOD ORDERABLES Performing Organization Address City/[facility] Phon e Number M [facility] [address], [place] [address] [facility] Heparin 10a Level (02/01/2012 6:30 PM CDT) P athologist Signature Heparin 10A 0.30 IU/mL [facility] Comment: Therapeutic Range: ?? UFH: ?? [...] 012 6:34 (specimen) CDT PM CDT Cheng Noelucki [facility] LAB - BLOOD ORDERABLES Performing Organization Address [facility] Phon e Number M [facility] [address] [place], [place] [address] [facility] (ABNORMAL) Glucose by meter (02/01/2012 5:02 PM CDT) athologist Signature Glucose 121 (H) 60 - 99 POINT OF CARE mg/dL TEST, GLUCOSE Specimen Anatomical Collection Method Collection Time Receive d Time (Source) Location / / Volume Laterality 02/01/2012 5:02 PM 2 6:50 CDT AM CDT Jayy Gill MD LAB - BEAKER POCT Performing Organization Address [facility] Phon e Number FV POINT OF CARE TEST, GLUCOSE POINT OF CARE TEST, GLUCOSE (ABNORMAL) Hemoglobin A1c (02/01/2012 3:18 PM CDT) athologist [facility] Hemoglobin A1C 6.7 (H) 4.3 - 6.0 [facility] Specimen Anatomical Collection Method Collection Time Receive d Time (Source) Location / / Volume Laterality Blood specimen 02/01/2012 3:18 PM 012 3:23 (specimen) CDT PM CDT Jayy Gill MD LAB - BLOOD ORDERABLES Performing Organization Address [facility] Phon e Number M [facility] [address] [place], [place] [address] [facility] (ABNORMAL) CBC with platelets (02/01/2012 3:18 PM CDT) athologist Signature WBC 7.6 4.0 - 11.0 [place] 10e9/L [facility] RBC Count 4.71 4.4 - 5.9 [place] 10e12/L [facility] Hemoglobin 15.0 13.3 - [place] 17.7 g/dL [facility] Hematocrit 44.7 40.0 - [place] 53.0 % [facility] MCV 95 78 - 100 [place] fl [facility] MCH 31.8 26.5 - [facility] 33.0 pg [facility] MCHC 33.6 31.5 - [place] 36.5 g/dL [facility] RDW 13.8 10.0 - [place] 15.0 % [facility] Platelet Count 148 (L) 150 - 450 [place] 10e9/L [facility] Specimen Anatomical Collection Method Collection Time Receive d Time (Source) Location / / Volume Laterality Blood specimen 02/01/2012 3:18 PM 012 3:23 (specimen) CDT PM CDT Jayy Gill MD LAB - BLOOD ORDERABLES Performing Organization Address [facility] Phon e Number M [facility] [address], [place] [address] [facility] (ABNORMAL) Troponin I - every 6 hours x 4 (02/01/2012 3:18 PM CDT) Analysis Performed At Patho logist Time Signature Troponin I ES 0.912 () 0.000 - [place] 0.034 ug/L [facility] Comment: Critical Value called to and read back sam MCKOY (ICU CHARGE NURSE) AT 1555 05.03.12 , TD Specimen Anatomical Collection Method Collection Time Receive d Time (Source) Location / / Volume Laterality Blood specimen 02/01/2012 3:18 PM 012 3:23 (specimen) CDT PM CDT Jayy Gill MD LAB - BLOOD ORDERABLES Performing Organization Address [facility] Phon e Number M [facility] [address], [place] [address] [facility] Echo complete with definity (02/01/2012 2:52 PM CDT) Patholo gist Method Time Signature [facility] Interpretation Summary [...] Troponin I ES 0.047 (H) 0.000 - [place] 0.034 ug/L [facility] Comment: The 99th percentile for upper [...] Organization Address City/State/ZIP Code Phon e Number [place] [address], [place] [address] [facility] EKG 12 lead (02/01/2012 9:51 AM CDT) Component Value Ref Range Test Analysis Performed Pathologis t Method Time At Signature Ventricular Rate 78 BPM RADIOLOGY RESULTS Atrial Rate 78 BPM RADIOLOGY RESULTS UT Interval 178 ms RADIOLOGY RESULTS QRS Duration 136 ms RADIOLOGY RESULTS QT 378 ms RADIOLOGY RESULTS QTc 430 ms RADIOLOGY RESULTS P Willard 77 degrees RADIOLOGY RESULTS R AXIS 3 degrees RADIOLOGY RESULTS T [place] -160 degrees RADIOLOGY RESULTS Interpretation Sinus rhythm [...] / Volume Laterality 02/01/2012 9:51 AM CDT Stephen Liriano MD ECG ORDERABLES [...] RESULTS QTc 504 ms RADIOLOGY RESULTS P [place] 90 degrees RADIOLOGY RESULTS R AXIS 7 degrees RADIOLOGY RESULTS T [place] -121 degrees RADIOLOGY RESULTS Interpretation Atrial flutter [...] Volume Laterality 02/01/2012 8:45 AM CDT Stephen Liriano MD ECG ORDERABLES Performing Organization Address City/State/ZIP Code Phon e Number RADIOLOGY RESULTS Troponin I (02/01/2012 8:45 AM CDT) P athologist Signature Troponin I ES 0.026 0.000 - [place] 0.034 ug/L [facility] Specimen Anatomical Collection Method Collection Time Receive d Time (Source) Location / / Volume Laterality Blood specimen 02/01/2012 8:45 AM 012 9:04 (specimen) CDT AM CDT Stephen Liriano MD LAB - BLOOD ORDERABLES Performing Organization Address City/State/ZIP Code Phon e Number M [facility] [address], [place] [address] [facility] (ABNORMAL) Basic metabolic panel (02/01/2012 8:45 AM CDT) Analysis Performed At Patho logist Time Signature Sodium 141 133 - 144 [place] mmol/L [facility] Potassium 4.1 3.4 - 5.3 [place] mmol/L [facility] Chloride 99 94 - 109 [place] mmol/L [facility] Carbon Dioxide 30 20 - 32 [place] mmol/L [facility] Anion Gap 12 6 - 17 [place] mmol/L [facility] Glucose 181 (H) 60 - 99 [place] mg/dL [facility] Urea Nitrogen 20 7 - 30 [place] mg/dL [facility] Creatinine 0.59 (L) 0.66 - [place] 1.25 mg/dL [facility] GFR Estimate >90 >60 [place] mL/min/1.[address] LAB GFR Estimate If >90 >60 [place] Black mL/min/1.[address] LAB Calcium 8.8 8.5 - 10.4 [place] mg/dL [facility] Specimen Anatomical Collection Method Collection Time Receive d Time (Source) Location / / Volume Laterality Blood specimen 02/01/2012 8:45 AM 012 9:04 (specimen) CDT AM CDT Stephen Liriano MD LAB - BLOOD ORDERABLES Performing Organization Address City/State/ZIP Code Phon e Number M [place] [address] [place] [address] [facility] CBC with platelets differential (02/01/2012 8:45 AM CDT) [facility] gist Method Time Signature WBC 6.1 4.0 - [place] 11.0 [facility] 10e9/L [facility] RBC Count 4.93 4.4 - 5.9 [place] 10e12/L [facility] Hemoglobin 15.8 13.3 - [place] 17.7 g/dL [facility] Hematocrit 47.0 40.0 - [place] 53.0 % [facility] MCV 95 78 - 100 [facility] MCH 32.0 26.5 - [place] 33.0 pg [facility] MCHC 33.6 31.5 - [place] 36.5 g/dL [facility] RDW 14.0 10.0 - [place] 15.0 % [facility] Platelet Count 161 150 - 450 [place] 10e9/L [facility] Diff Method Automated [facility] % Neutrophils 55.3 40 - 75 % [facility] % Lymphocytes 29.5 20 - 48 % [facility] % Monocytes 9.1 0 - 12 % [facility] % Eosinophils 5.3 0 - 6 % [facility] % Basophils 0.5 0 - 2 % [facility] % Immature 0.3 0 - 0.4 % [place] Granulocytes [facility] Absolute 3.4 1.6 - 8.3 [place] Neutrophil 10e9/L [facility] Absolute 1.8 0.8 - 5.3 [place] Lymphocytes 10e9/L [facility] Absolute 0.6 0.0 - 1.3 [place] Monocytes 10e9/L [facility] Absolute 0.3 0.0 - 0.7 [place] Eosinophils 10e9/L [facility] Absolute 0.0 0.0 - 0.2 [place] Basophils [facility] Abs Immature 0.0 0 - 0.03 [place] Granulocytes [address] [place] [address] LAB Specimen Anatomical Collection Method Collection Time Receive d Time (Source) Location / / Volume Laterality Blood specimen 02/01/2012 8:45 AM 012 9:04 (specimen) CDT AM CDT Stephen Liriano MD LAB - BLOOD ORDERABLES Performing Organization Address City/State/ZIP Code Phon e Number [place] [address], [place] [address] [facility] ECG - HIM ECG Scan (02/01/2012) [...] IV for 2 hours prior to cardiac catheter builder procedure, then decrease to 75 mL/hr to [...] at 0855, For 1 dose, MADELYN CAGE: Darrion Override aspirin chewable tablet 243 mg Given [...] Including day before and day of cardiac catheter builder procedure (except if pt. Allergic) if not already given today in ED for patients arriving on day of cardiac catheter builder procedure. Already received total of 325 mg [...] Units Units 5,500 Units, Intravenous, ONCE, On Sun02/01/12 at 1200, For 1 dose heparin drip [...] Arm patch 1 patch, Transdermal, ONCE, On Sun02/01/12 at 0930, For 1 dose nitroglycerin (NITRODUR) 0.4 MG/HR Starting on Sun02/01/12 at 0927, For 1 dose, MADELYN CAGE: Cabinet Override nitroglycerin (NITROSTAT) 0.4 MG SL tabl et Starting on Sun02/01/12 at 0858, For 1 dose, MADELYN CAGE: Cabinet Override nitroglycerin (NITROSTAT) SL tablet 0.4 mg Given 02/01/2012 9:17 AM CDT 0.4 mg 0.4 mg, Sublingual, EVERY 5 MIN PRN, chest pain, Starting on Sun02/01/12 at 0855, For 3 doses, until pain subsides. Hold for SBP<90 Given 02/01/2012 9:09 AM CDT 0.4 mg Given 02/01/2012 9:03 AM CDT 0.4 mg nitroglycerin 50 mg in D5W 250 mL (adult std) 200-5 MCG/ML-% infusion Starting on Sun02/01/12 at 1003, For 1 dose, MADELYN CAGE: [...] First dose on [place] 02/01/12 at 2000 Given 02/02/2012 7:58 PM CDT 80 mg Given 02/01/2012 9:50 PM CDT 80 mg senna-docusate (SENOKOT-S;PERICOLACE) Given 02/04/2012 8:14 AM C DT 2 tablets 8.6-50 MG per tablet 1-2 tablet 1-2 tablet, Oral, 2 TIMES DAILY, First dose on [place] 02/01/12 at 2100, Start with [...] HOURS, First dose on [place] 02/01/12 at 1930, And Q1H PRN, to lock [...] 7.5 mg, Oral, ONCE AT 6PM, On 02/03/12 at 1800, For 1 dose, Dispose as HW-P documented in this encounter Active and Recently Administered Medications Times are shown in CDT. Scheduled Medication Order 02/02/2012 02/03/2012 02/04/2012 aspirin EC tablet 325 mg (CANCELED) 09 (Given - Provider: Brian Little RN) 0805 (Given - Provider: Misa Nelson) 0814 (Given - Provider: Modesto Carey) 325 mg, Oral, DAILY, First dose on Sun at 0900, Including day before and day of cardiac catheter builder procedure (except if pt. Allergic) if not already given today in ED for patients arriving on day o f cardiac catheter builder procedure. Already received total of 325 mg 5 /3 am. enoxaparin (LOVENOX) injection 150 mg 1956 (Given - Pr ovider: Sherman Messer RN) 08 (Given - Provider: Misa Nelson)2041 (Given - Provider: Mildred Massey RN) 0814 (Given - Provider: Modesto Carey) 1 mg/kg ? 145.6 kg = 150 mg, Subcutaneous, EVERY 12 HOURS, First dose on Sun02/02/12 at 2000 furosemide (LASIX) injection 20 mg (COMPLETED) 935 (Given - Provider: Sariah Torres, RN) 20 mg, Intravenous, ONCE, 02/04/12 at 0930, For 1 dose insulin aspart (NovoLOG) injection (CANCELED) 0840 (Ho ld - Provider: Ana Tian LPN [...] Oral, 2 TIMES DAILY, First dose on 5/5/12 at 2100, Hold for bp less than 100. metoprolol (LOPRESSOR) tablet 12.5 mg (CANCELED) 900 (Given - Provider: Brian Little RN) 12.5 mg, Oral, 2 TIMES DAILY, First dose on [place] 02/01/12 at 2100, Hold for SBP < 100 or HR < 60 metoprolol (TOPROL-XL) 24 hr tablet 100 mg (CANCELED) 1646 (Given - Provider: Brian Little RN) 08 (Given - Provider: Misa Nelson) 100 mg, Oral, DAILY, First dose on Sun at 1530, DO NOT CRUSH. Tablet may be split in half along score line. metoprolol (TOPROL-XL) 24 hr tablet 50 mg 08 (Given - Provider: Marta Bynum LPN) 50 mg, Oral, 2 TIMES DAILY, First dose o n [place] 02/04/12 at 0900, DO NOT CRUSH. Tablet [...] Messer RN) 2041 (Given - Provider: Mildred Massey, SIENNA) 80 mg, Oral, DAILY, First dose on [place] 02/01/12 at 2000 senna-docusate (SENOKOT-S;PERICOLACE) 8. 6-50 MG per tablet 1-2 tablet (CANCELED) 900 (Given - Provider: Brian Little RN) 1958 (Given - Provider: Sherman Messer RN)2212 (Not Given - Provider: Sherman Messer RN - Reason: Other - Comment: given early) 08 (Given - Provider: Misa Nelson)2041 (Not Given - Provider: Mildred Massey, SIENNA - Reason: Patient/family refused) 0814 (Given - [...] (COMPLETED) 1958 (Gi didier - Provider: Sherman Messer RN) 7.5 mg, Oral, ONCE AT 6PM, Sun02/02/12 at 1915, For 1 dose, Dispo se as HW-P warfarin (COUMADIN) tablet 7.5 mg (COMPLETED) 1806 (Given - Provider: Sulema East RN) 7.5 mg, Oral, ONCE AT 6PM, 02/03/12 at 1800, For 1 dose, Dispo se as HW-P Continuous Medication Order 02/02/2012 02/03/2012 02/04/2012 0.9 % sodium chloride IV solution (CANCELED) 0700 (Rat e/Dose Verify - Provider: Brian Little, RN) 1,000 mL, Intravenous, at 150 mL/hr, CON TINUOUS, Starting 02/02/12 at 0000, 150 mL/hr IV for 2 hours prior to cardiac catheter builder procedure, then decrease to 75 mL/hr to [...] [place]wood RN)0730 (Rate/Dose Verify - Provider: Brian Little, RN)1325 (Stopped - Provider: Essie Lorenzo, SIENNA) [...] [place] RN)0730 (Rate/Dose Verify - Provider: Brian Little, RN)0900 (Rate/Dose Change - Provider: Brian Little [...] (CANCELED) 1440 (Given by Other - Provider: Essie Lorenzo RN - Comment: Total dose given. See mac lab report.) 100-500 mcg = 0.1-0.5 mg, INTRA-ARTERIAL , ONCE PRN, for radial artery sheath protocol, when verbally ordered by prescriber during the procedure, Starting Sun02/02/12 at 1335, For 1 dose, Prescriber will administer the dose. Dispose as HW-P, Cardiac Intra-procedure sodium chloride 0.9 % flush 3 mL (CANCELED) 0810 (Given - Provider: Sharla Ruiz RN) 3 mL, Intravenous, EVERY 1 HOUR PRN, carlos enrique e flush, Starting Sun02/02/12 at 1515, for peripheral IV flush post IV meds verapamil (ISOPTIN) injection 1-2.5 mg (CANCELED) 1439 (Given by Other - Provider: Essie C [place], RN - Comment: Total dose given by [...] Override documented in this encounter Care Teams [employer] Relationship Specialty Start Date End Date Nas Cardenas MD PCP - General Family Practice 02/01/12 04/12/17 documented as of this encounter
--- OUTSIDE RECORDS SUMMARY | 2022-07-19 08:27 | XMS_ITS | Encounter Summary ---
:1940 Author Organization [facility] Address [address] [place] [address] Care Team Providers Name Role Phone Nas Cardenas MD Primary Care Provider Reason for Referral - Closed Specialty Diagnoses / Procedures Referred By Contact Refer red To Contact Diagnoses Typical atrial flutter (H) Ankur Smith MD [address] [place] [id number] Referral ID Status Reason Start Date Expiration Date Visits Requ ested Visits Authorized [id number] Closed 12/19/2017 12/19/2018 1 1 Reason for Visit Reason Comments Atrial Fib yearly f/u - Closed Specialty Diagnoses / Procedures Referred By Contact Refer red To Contact Ankur Smith MD [address] [place] [id number] Referral ID Status Reason Start Date Expiration Date Visits Requ ested Visits Authorized [id number] Closed 12/10/2015 06/07/2016 1 1 Encounter Details Date Type Department Care Team Description 12/20/2015 Office Visit [facility] Ankur Smith MD Benign essential hypertension (Primary D x); [facility] [address] Typical atrial flutter (H) [address] [facility] [address] [facility] [address] [place] [address] [place] [phone] Social History Tobacco Use Types Packs/Day Years [...] CDT December 20, 2015 [place] [address] RE: Radha Farooq : [address] [...] first-degree AV block with a relatively long MD interval. ASSESSMENT AND RECOMMENDATIONS: Mr. Farooq is doing reasonably well. His angina is occasional and infrequent. I agree for him to use nitroglycerin. However, if the angina frequency increases, we may have to repeat coronary angiography. His last coronary angiography was in 2011. He is known to have normal LV function. Based on his very long MD interval, I have asked him to change [...] visit. Sincerely, MD ANKUR Greene MD MT: Name: RADHA FAROOQ MRN: [id number] Account: [id number] : 1940 Service Date: 12/20/2015 Document: [id number] Ankur Smith MD - 12/20/2015 10:15 AM CDT HPI and Plan: See dictation Orders Placed This Encounter Procedures ??? Follow-Up with Cardiac Advanced Practice Provider ??? Follow-Up with Welfare Adviser ??? EKG 12-lead complete w/read - Clinics [...] Ankur Smith MD [facility] [address] [place] [id number] documented in this encounter Plan of Treatment Upcoming Encounters Date Type Specialty Care Team Description 08/16/2022 Ancillary Procedure Cardiology Ankur Smith MD [address] [place] [id number] (Wo rk) 08/16/2022 Office Visit Cardiology Ankur Smith MD [address] [place] [phone] (Wo rk) Scheduled Referrals Name Type Priority Associated Diagnoses Order S chedule Follow-Up with Referral Routine Typical atrial Expected: Welfare Adviser flutter (H) 12/20/19 18 (Approximate), Expires: 05/03/2018 [...] flutter documented in this encounter Care Teams [employer] Stabilizer Operator Relationship Specialty Start Date End Date Nas Cardenas MD PCP - General Family Practice 02/01/12 04/12/17 documented as of this encounter
--- OUTSIDE RECORDS SUMMARY | 2022-07-19 08:27 | XMS_ITS | Encounter Summary ---
:1940 Author Organization [place] Address [address] [facility] [place] [address] Care Team Providers Name Role Phone Nas Coleman MD Primary Care Provider Graham Licona MD Primary Care Provider [facility] Primary Care Provider Slava Hernandez-C Primary Care Provider Timothy Smith MD Unavailable Graham Licona MD Primary Care Provider Encounter Details Date Type Department Care Team Description 02/10/2013 Office Visit-[facility] Heart Rafael Smith MD [address] [place] [address] [place] [address] [phone] Social History Tobacco Use Types Packs/Day Years [...] 1940 AGE: [age] years old Referring Physician: NAS COLEMAN Referring Clinic: [facility] CURRENT DIAGNOSES 1. - Hyperlipidemia, 272.4 2. [...] in another institution. The patient presented to [facility] last year with chest pain. He was [...] Cardiology followup plan. Subsequently he went to [facility] and underwent a DC cardioversion. Apparently, sometime [...] [address] [place] [phone] (Wo rk) 08/16/2022 Office Visit Cardiology Timothy Smith MD [address] [place] [phone] (Fiorella rk) documented as of this encounter Visit Diagnoses Not on filedocumented in this encounter Care Teams Poke In Relationship Specialty Start Date End Date Nas Coleman, PCP - General Family Practice 02/01/1203/31 Graham Licona MD PCP - General Family Practice 04/13/17 01/15/[address] [facility] [address] [place] [address] Vinny Reinoso PCP - General 01/16/18 07/01/18 [place] [address] [place] [address] Slava Hernandez, PCP - General Physician Heavy Mobile Equipment Operator 07/02/1806/02 PA-C [facility] [address] [place] [address] Graham Licona MD PCP - General Family Medicine 06/30/[address] [facility] [address] [place] [address] Timothy Smith MD Assigned Heart and 07/23/20 [address] Vascular Provider [address] [place] [phone] documented as of this encounter
--- OUTSIDE RECORDS SUMMARY | 2022-07-19 08:27 | XMS_ITS | Encounter Summary ---
:1940 Author Organization [place] Address [address] [facility] [place] [address] Care Team Providers Name Role Phone Nas Cardenas MD Primary Care Provider Encounter Details Date Type Department Care Team Description 01/15/2013 Historic Results [facility] Heart Unknown, Doct or, [facility] [address] [place] [address] [address] [place] [phone] Social History Tobacco Use Types Packs/Day Years [...] [address] [place] [address] (Wo rk) 08/16/2022 Office Visit Cardiology Timothy Smith MD [address] [place] [phone] (Wo rk) documented as of this encounter Procedures Procedure Name Priority Date/Time Associated Comments Diagnosis [facility] HISTORICAL Routine 01/15/2013 12:00 AM Resu lts for this RESULTS CDT procedure are i n the results section. documented in this encounter Results [facility] Historical Results (01/15/2013 12:00 AM CDT) P athologist Signature INR 2.9 [facility] HISTORICAL RESULTS Specimen (Source) Anatomical Location Collection Method / Collectio n Time Received Time / Laterality Volume 01/15/2013 01/15/2013 Doctor Unknown MD LABORATORY Performing Organization Address City/State/ZIP Code Phon e Number [facility] HISTORICAL RESULTS documented in this encounter Visit Diagnoses Not on filedocumented in this encounter Care Teams Foreign Trade Teacher Relationship Specialty Start Date End Date Nas Cardenas MD PCP - General Family Practice 02/01/12 04/12/17 documented as of this encounter
--- OUTSIDE RECORDS SUMMARY | 2022-07-19 08:27 | XMS_ITS | Encounter Summary ---
:1940 Author Organization [place] Address [facility] [place] [address] Care Team Providers Name Role Phone Herminia Coleman MD Primary Care Provider Graham Licona MD Primary Care Provider [facility] Primary Care Provider [phone] Slava Hernandez PA-C Primary Care Provider Timothy Smith MD Unavailable Graham Licona MD Primary Care Provider Encounter Details Date Type Department Care Team Description 09/12/2013 Office Visit-[facility] Carmen Montenegro [facility] P[place] Torres PA-C [address] [facility] [facility] [facility] [address] [facility] [address] [place] [address] [place] [phone] Social History Tobacco Use Types Packs/Day Years Used Date Smoking Tobacco: Never Alcohol Use Standard Drinks/Week Comments Yes 0 (1 standard drink = 0.6 oz pure alcoho l) Sex Assigned at Date Recorded Not on file documented as of this encounter Progress Notes Tammy Montenegro PA-C - 09/19/2013 3:42 PM CST Progress Note Created by: Tammy Montenegro, P.A. DATE: 09/12/2013 RADHA VILLA DATE OF : 1940 AGE: [age] years old Referring Physician: HERMINIA COLEMAN Referring Clinic: [facility] CURRENT DIAGNOSES 1. - Hyperlipidemia, 272.4 2. - Hypertension, 401.1 3. [place]-Recent Unspecified, 410.91 4. - CAD, 414.00 5. [...] 2013. He saw Dr. Smith, his primary manager army, in May, at which time he was [...] walking in a big store, such as [employer]. He does workout at [employer] three times weekly and states he has [...] Occupation - retired; Residence - lives in [place] year round; REVIEW OF SYSTEMS GENERAL See [...] tablet, 1 p.o. twice daily, #180 (One Kinde Eighty) MEDICATIONS STOPPED TODAY: losartan 25 mg [...] Dr. Smith in 05/2014 as previously ordered Kasi Boyle. documented in this encounter Plan of Treatment Upcoming Encounters Date Type Specialty Care Team Description 08/16/2022 Ancillary Procedure Cardiology Timothy Smith MD [address] [place] [phone] (Wo rk) 08/16/2022 Office Visit Cardiology Timothy Smith MD [address] [place] [address] (Wo rk) documented as of this encounter Visit Diagnoses Not on filedocumented in this encounter Care Teams Pipe Roller Relationship Specialty Start Date End Date Herminia Coleman, PCP - General Family Practice 02/01/1203/31 Graham Licona MD PCP - General Family Practice 04/13/17 01/15/18 [facility] [address] [place] [address] Vinny Reinoso PCP - General 01/16/18 07/01/18 [place] [address] [place] [address] Slava Hernandez, PCP - General Physician Motor Pool Clerk 07/02/1806/02 PA-C [facility] [address] [place] [address] Graham Licona MD PCP - General Family Medicine 06/30/21 [facility] [address] [place] [address] Timothy Smith MD Assigned Heart and 07/23/20 [address] Vascular Provider [address] [place] [address] documented as of this encounter
--- OUTSIDE RECORDS SUMMARY | 2022-07-19 08:27 | XMS_ITS | Encounter Summary ---
:1940 Author Organization [place] Address [address] [facility] [place] [address] Care Team Providers Name Role Phone Nas Cardenas MD Primary Care Provider Reason for Visit Reason Onset Date Comments Previsit 12/09/2014 Irregular Heart Beat 12/09/2014 Encounter Details Date Type Department Care Team Description 12/09/2014 PRE VISIT [facility] Heart Zarina Smith MD Previsit; [facility] [place] [address] Heart Beat [address] [facility] [address] [facility] [address] [place] [address] [place] [phone] Social History Tobacco Use Types Packs/Day Years [...] [address] [place] [phone] (Wo rk) 08/16/2022 Office Visit Cardiology Timothy Smith MD [address] [place] [phone] (Wo rk) documented as of this encounter Visit Diagnoses Not on filedocumented in this encounter Care Teams Team Foreman Relationship Specialty Start Date End Date Nas Cardenas MD PCP - General Family Practice 02/01/12 04/12/17 documented as of this encounter
--- OUTSIDE RECORDS SUMMARY | 2022-07-19 08:27 | XMS_ITS | Encounter Summary ---
:1940 Author Organization [place] Address [facility] [place] [address] Care Team Providers Name Role Phone Unavailable Primary Care Provider Unavailable Encounter Details Date Type Department Care Team Description 10/17/2004 Historic Botanical Technical Officer INTERFACED REPORT Dasha Gonzalez MD [facility] [address] [facility] [address] [place], [place] [address] (Wo rk) Social History Tobacco Use Types Packs/Day Years Used Date Smoking Tobacco: Never Alcohol Use Standard Drinks/Week Comments Yes 0 (1 standard drink = 0.6 oz pure alcoho l) Sex Assigned at Date Recorded Not on file documented as of this encounter Progress Notes Dasha Gonzalez MD - 09/06/2011 4:53 AM CHAR FILTER OPERATOR 1st ASS'T: Sabino Ceja 2nd ASS'T: [...] condition. DASHA GONZALEZ MD MT: [email or web address] Document: [id number] CC: DASHA GONZALEZ MD [place], [place] Name: RADHA FAROOQ OPERATIVE REPORT Page 2 of 1 LCN: EYE DSC: 10/17/2004 [place], [place] Name: RADHA FAROOQ MR#: : Procedure Date: [id number] 1940 10/17/2004 Surgeon: DASHA GONZALEZ MD OPERATIVE REPORT Page 1 of 1 FILTER OPERATOR documented in this encounter Plan of Treatment Upcoming Encounters Date Type Specialty Care Team Description 08/16/2022 Ancillary Procedure Cardiology Timothy Smith MD [address] [place] [phone] (Wo rk) 08/16/2022 Office Visit Cardiology Timothy Smith MD [address] [place] [address] (Wo rk) documented as of this encounter Visit Diagnoses Not on filedocumented in this encounter
--- OUTSIDE RECORDS SUMMARY | 2022-07-19 08:27 | XMS_ITS | Encounter Summary ---
:1940 Author Organization [place] Address [address] [address] Care Team Providers Name Role Phone Nas Cardenas MD Primary Care Provider Reason for Referral - Closed Specialty Diagnoses / Procedures Referred By Contact Refer red To Contact Ankur Smith MD [address] [place] [id number] Referral ID Status Reason Start Date Expiration Date Visits Requ ested Visits Authorized [id number] Closed 12/10/2015 06/07/2016 1 1 Reason for Visit Reason Comments Annual Visit feeling well - ekg done Encounter Details Date Type Department Care Team Description 12/10/2014 Office Visit [facility] Ankur Smith MD Atrial flutter (H) [facility] [place] [address] (Primary Dx) [address] [facility] [address] [facility] [address] [place] [address] [place] [phone] Social History Tobacco Use Types Packs/Day Years [...] CDT December 10, 2014 Nas Cardenas MD [facility] [address] [place], [place] [id number] RE: Radha Villa : [address] [...] right eye melanoma. He got treatment at [facility] and has had some impaired vision [...] Greene MD MT: MANDIE Name: RADHA VILLA MRN: -[id number] Account: [id number] : 1940 Service Date: 12/10/2014 Document: [id number] Ankur Smith MD - 12/10/2014 2:26 PM [...] [address] [place] [phone] (Wo rk) 08/16/2022 Office Visit Cardiology Ankur Smith MD [address] [place] [phone] (Wo rk) Scheduled Referrals Name Type Priority Associated Diagnoses Order S chedule Follow-Up with Referral Routine Atrial Flutter (H) Expecte d: Loan Review Officer 12/10/19 16 (Approximate), Expires: 04/23/2016 documented as [...] flutter documented in this encounter Care Teams Chalker Soles Relationship Specialty Start Date End Date Nas Cardenas MD PCP - General Family Practice 02/01/12 04/12/17 documented as of this encounter
--- OUTSIDE RECORDS SUMMARY | 2022-07-19 08:27 | XMS_ITS | Encounter Summary ---
:1940 Author Organization [place] Address [address] [facility] [place] [address] Care Team Providers Name Role Phone Nas Cardenas MD Primary Care Provider Encounter Details Date Type Department Care Team Description 02/27/2013 Results Only [facility] Timothy Smith MD Hospital Results [address] [place] [address] (Wo rk) Social History Tobacco Use Types [...] [address] [place] [phone] (Wo rk) 08/16/2022 Office Visit Cardiology Timothy Smith MD [address] [place] [phone] (Wo rk) documented as of this encounter [...] CDT Narrative 03/07/2013 10:57 AM CDT RADHA VILLA ?? PROCEDURES PERFORMED: 1. ??Comprehensive EP study with left at rial recording through the coronary sinus. 2. ??Ablation of typical atrial flutter. ?? INDICATIONS FOR PROCEDURE: ??Mr. Villa i s a 72-year-old white male with a [...] using the Seldi nger technique, a 5 Malagasy decapolar catheter was inserted through the left [...] tricuspid isthmus. ??The ablation catheter was from [facility] with 8 mm tip. ??The ablation [...] Note Timothy Smith MD - 03/07/2013 RADHA VILLA PROCEDURES PERFORMED: 1. Comprehensive EP study with left atri al recording through the coronary sinus. 2. Ablation of typical atrial flutter. INDICATIONS FOR PROCEDURE: Mr. Villa is a 72-year-old white male with a [...] using the Selding er technique, a 5 Malagasy decapolar catheter was inserted through the left [...] tricuspid isthmus. The ablation catheter was from [facility] with 8 mm tip. The ablation [...] filedocumented in this encounter Care Teams House Officer Relationship Specialty Start Date End Date Nas Cardenas MD PCP - General Family Practice 02/01/12 04/12/17 documented as of this encounter
--- OUTSIDE RECORDS SUMMARY | 2022-07-19 08:27 | XMS_ITS | Encounter Summary ---
:1940 Author Organization [place] Address [address] [facility] [place] [address] Care Team Providers Name Role Phone Nas Cardenas MD Primary Care Provider Encounter Details Date Type Department Care Team Description 02/27/2013 Historic Results [facility] Heart Unknown, [facility] ider Clinic [place] [address] [facility] [address] [place] [phone] Social History Tobacco Use Types Packs/Day Years [...] [address] [place] [phone] (Wo rk) 08/16/2022 Office Visit Cardiology Timothy Smith MD [address] [place] [phone] (Wo rk) documented as of this encounter Procedures Procedure Name Priority Date/Time Associated Diagnosis Comme nts EP REPORT - HIM SCAN - 02/27/2013 12:00 AM CDT ARCHIVE documented in this encounter Results EP REPORT - HIM SCAN - ARCHIVE (02/27/2013 12:00 AM CDT) Anatomical Region Laterality Modality Other Specimen (Source) Anatomical Location Collection Method / Collectio n Time Received Time / Laterality Volume 02/27/2013 Narrative This result has an attachment that is no t available. Provider Scan CV ELECTROPHYSIOLOGY ORDERAB LES documented in this encounter Visit Diagnoses Not on filedocumented in this encounter Care Teams Teacher Aide Relationship Specialty Start Date End Date Nas Cardenas MD PCP - General Family Practice 02/01/12 04/12/17 documented as of this encounter
--- OUTSIDE RECORDS SUMMARY | 2022-07-19 08:27 | XMS_ITS | Encounter Summary ---
:1940 Author Organization [place] Address [address] [place] [address] Care Team Providers Name Role Phone Nas Cardenas MD Primary Care Provider Encounter Details Date Type Department Care Team Description 02/27/2013 Historic Results [facility] Heart Unknown, [facility] ider Clinic [place] [address] [facility] [address] [place] [phone] Social History Tobacco Use Types Packs/Day Years [...] [address] [place] [phone] (Wo rk) 08/16/2022 Office Visit Cardiology Timothy Smith MD [address] [place] [phone] (Wo rk) documented as of this encounter [...] on filedocumented in this encounter Care Teams University Archivist Relationship Specialty Start Date End Date Nas Cardenas MD PCP - General Family Practice 02/01/12 04/12/17 documented as of this encounter
--- OUTSIDE RECORDS SUMMARY | 2022-07-19 08:27 | XMS_ITS | Encounter Summary ---
:1940 Author Organization [place] Address [address] [place] [address] Care Team Providers Name Role Phone Herminia Coleman MD Primary Care Provider Graham Licona MD Primary Care Provider [facility] Primary Care Provider [phone] Slava Hernandez PA-C Primary Care Provider Timothy Smith MD Unavailable Graham Licona MD Primary Care Provider Encounter Details Date Type Department Care Team Description 03/18/2013 Office Visit-[facility] Guera Huff vale [facility] [place] Mcgee PA-C [address] [facility] [address] [place] [phone] Social History Tobacco Use Types Packs/Day Years Used Date Smoking Tobacco: Never Alcohol Use Standard Drinks/Week Comments Yes 0 (1 standard drink = 0.6 oz pure alcoho l) Sex Assigned at Date Recorded Not on file documented as of this encounter Progress Notes Michelle Huff PA-C - 04/26/2013 2:24 PM CDT Progress Note Created by: HANK Arellano [id number] DATE: 03/18/2013 RADHA VILLA DATE OF : 1940 AGE: [age] years old Referring Physician: HERMINIA COLEMAN Referring Clinic: [facility] CURRENT DIAGNOSES 1. - Hyperlipidemia, 272.4 2. - Hypertension, 401.1 3. [place]-Recent Unspecified, 410.91 4. - CAD, 414.00 5. [...] past at another institution. He presented to [facility] last year with chest discomfort and was found to be in atrial flutter. Due to troponin elevation he underwent coronary angiography and was found to have no significant stenosis. No intervention was performed. Subsequently he went to [facility] and underwent a direct current cardioversion. Dr. [...] Weight- 318.00 lbs. Height- 71 BMI Measurement: kaleo Error: [iMusician][kaleo SQL Supervisor Engine Assembly Conference Assistant][SQL Supervisor Engine Assembly]Divide by zero error encountered. - [id number] CONSTITUTIONAL cooperative, alert and oriented,well developed, well [...] in 1985 with a four-vessel bypass at [facility]. Subsequent angiography in Jan, 2012, did [...] [address] [place] [address] (Wo rk) 08/16/2022 Office Visit Cardiology Timothy Smith MD [address] [place] [address] (Wo rk) documented as of this encounter Visit Diagnoses Not on filedocumented in this encounter Care Teams Mold Machine Operator Relationship Specialty Start Date End Date Herminia Coleman, PCP - General Family Practice 02/01/1203/31 Graham Licona MD PCP - General Family Practice 04/13/17 01/15/18 [facility] [address] [place] [address] Vinny Reinoso PCP - General 01/16/18 07/01/18 [facility] [address] [place] [phone] Slava Hernandez, PCP - General Physician Pellet Machine Operator 07/02/1806/02 PA-C [facility] [address] [place] [address] Graham Licona MD PCP - General Family Medicine 06/30/21 [facility] [address] [place] [address] Timothy Smith MD Assigned Heart and 07/23/20 [address] [facility] Vascular Provider [address] [place] [phone] documented as of this encounter
--- OUTSIDE RECORDS SUMMARY | 2022-07-19 08:27 | XMS_ITS | Encounter Summary ---
:1940 Author Organization [place] Address [address] [facility] [place] [address] Care Team Providers Name Role Phone Nas Cardenas MD Primary Care Provider Encounter Details Date Type Department Care Team Description 02/01/[address] [facility] Heart Unknown, [facility] ider Clinic [place] [address] [facility] [address] [place] [phone] Social History Tobacco Use Types Packs/Day Years [...] [address] [place] [phone] (Wo rk) 08/16/2022 Office Visit Cardiology Timothy Smith MD [address] [place] [phone] (Wo rk) documented as of this encounter Procedures Procedure Name Priority Date/Time Associated Diagnosis Comme nts ECHO CARDIAC - HIM SCAN 02/01/2012 12:00 AM CDT - ARCHIVE documented in this encounter Results ECHO CARDIAC - HIM SCAN - ARCHIVE (02/01/2012 12:00 AM CDT) Anatomical Region Laterality Modality Echocardiography Specimen (Source) Anatomical Location Collection Method / Collectio n Time Received Time / Laterality Volume 02/01/2012 Narrative This result has an attachment that is no t available. Provider Scan CV ECHO ORDERABLES documented in this encounter Visit Diagnoses Not on filedocumented in this encounter Care Teams Luster Repairer Relationship Specialty Start Date End Date Nas Cardenas MD PCP - General Family Practice 02/01/12 04/12/17 documented as of this encounter
--- OUTSIDE RECORDS SUMMARY | 2022-07-19 08:28 | XMS_ITS | Encounter Summary ---
:1940 Author Organization [place] Address [address] [place] [address] Care Team Providers Name Role Phone Unavailable Primary Care Provider Unavailable Encounter Details Date Type Department Care Team Description 08/06/2004 Allied Health/Nurse Health [facility] FOR INFLUENZA Visit Clinic [place] [address] [place] [phone] Social History Tobacco Use Types Packs/Day Years [...] MD [address] [place] [address] (Wo rk) 08/16/2022 Office Visit Cardiology Timothy Smith MD [address] [place] [address] (Wo rk) documented as of this encounter Visit Diagnoses Diagnosis Need for prophylactic vaccination and in oculation against influenza documented in this encounter
--- OUTSIDE RECORDS SUMMARY | 2022-07-19 08:28 | XMS_ITS | Encounter Summary ---
:1940 Author Organization [place] Address [facility] [place] [address] Care Team Providers Name Role Phone Unavailable Primary Care Provider Unavailable Encounter Details Date Type Department Care Team Description 10/13/2004 Operative Report Lesvia Serrato MD (Ophthalmologist Retina Specialist) [facility] [address] 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 Mr. Radha Villa is a 16-hops-cnpghgprm with a diagnosis of right eye choroidal [...] approximately 7,400 cGy. LESVIA SERRATO MD MT: [email or web address] Document: [id number] [place], [place] Name: RADHA VILLA OPERATIVE REPORT Page 2 of 1 LCN: EYE DSC: 10/13/2004 [place], [place] Name: RADHA VILLA MR#: : Procedure Date: -86 1940 10/13/2004 Surgeon: LESVIA SERRATO MD OPERATIVE REPORT Page 1 of 1 GLIDING INSTRUCTOR documented in this encounter Plan of Treatment Upcoming Encounters Date Type Specialty Care Team Description 08/16/2022 Ancillary Procedure Cardiology Timothy Smith MD [address] [place] [phone] (Fiorella olvera) 08/16/2022 Office Visit Cardiology Timothy Smith MD [address] [place] [address] (Fiorella olvera) documented as of this encounter Visit Diagnoses Not on filedocumented in this encounter
--- OUTSIDE RECORDS SUMMARY | 2022-07-19 08:28 | XMS_ITS | Encounter Summary ---
:1940 Author Organization [place] Address [address] [facility] [place] [address] Care Team Providers Name Role Phone Unavailable Primary Care Provider Unavailable Reason for Visit Reason Comments RESIDENT PROGRAMS ASSISTANT - INTRODUCTION [facility] FOR SENIOR MEMBER Encounter Details Date Type Department Care Team Description 11/12/2003 Telephone [facility] PHYSICIAN Stephon Stone RESIDENT PROGRAMS ASSISTANT - ASSOCIATES - CARE PHYSICIAN INTRODUCTI ON ([facility]PT [facility] SENIOR MEMBER) [address] [place] [address] [place] [address] [place] [phone] Social History Tobacco Use Types Packs/Day Years Used Date Smoking Tobacco: Never Assessed Sex Assigned at Date Recorded Not on file documented as of this encounter Miscellaneous Notes Telephone Encounter - 11/12/2003 11:59 PM MEAT CARRIER >> AMANDA STONE Wed Dec 09, 2003 [...] Stone RN Case Manager FPA >> AMANDA Perez Nov 12, 2003 5:03 PM >> CALL RECEIVED. Contact: Called client as a new member, and as follow up to his [facility] score of 0.239. No answer, did not leave a message, will require a return call at a later time. Amanda Stone, SIENNA Case Ma lee MARTINEZ documented in this encounter Plan of Treatment Upcoming Encounters Date Type Specialty Care Team Description 08/16/2022 Ancillary Procedure Cardiology Timothy Smith MD [address] [place] [phone] (Wo rk) 08/16/2022 Office Visit Cardiology Timothy Smith MD [address] [place] [phone] (Wo rk) documented as of this encounter Visit Diagnoses Not on filedocumented in this encounter
--- OUTSIDE RECORDS SUMMARY | 2022-07-19 08:28 | XMS_ITS | Encounter Summary ---
:1940 Author Organization [place] Address [facility] [place] [address] Care Team Providers Name Role Phone Unavailable Primary Care Provider Unavailable Reason for Visit Reason Comments RECHECK Would like to have some lab work done. Encounter Details Date Type Department Care Team Description [facility]2004 [facility] MIX[facility]LIPIDEMIA; [facility] [place] XXX RESIGNED XXX OTHER PSORIASIS [address] [place] [address] [place] [address] [place] [phone] (Wo rk) Social History Tobacco Use [...] [address] [place] [phone] (Fiorella olvera) 08/16/2022 Office Visit Cardiology Timothy Smith MD [address] [place] [phone] (Fiorella olvera) documented as of this encounter [...] CDT) athologist Signature Cholesterol 184 <200 mg/dL [facility] Comment: Cholesterol Reference Range: <200 ??The NCEP recommends further ? evaluation of: ? 1. ??Patients with cholesterol ? greater than 200 mg/dL ? if additional risk facto rs ? are present. ? 2. ??All patients with a ? cholesterol greater than ? 240 mg/dL. Triglycerides 172 (H) <150 mg/dL [facility] HDL Cholesterol 37 (L) >40 mg/dL [facility] LDL Cholesterol Calculated 113 0 - 129 mg/dL [facility] VLDL-Cholesterol 34 (H) 0 - 30 mg/dL [facility] Cholesterol/HDL Ratio 5.0 0.0 - 5.0 [facility] Specimen Anatomical Collection Method Collection Time Receive d Time (Source) Location / / Volume Laterality 04/25/2004 9:47 AM 4 9:52 CDT AM CDT Kannan Flores MD LABORATORY Performing Organization Address City/State/ZIP Code Phon e Number [facility] [address] [place] [address] [facility] (ABNORMAL) A.M.A. COMPREHENSIVE MET.PANEL (04/25/2004 9:47 AM CDT) P athologist Signature Sodium 138 133 - 144 [place] [facility] mmol/L [facility] Potassium 4.1 3.4 - 5.3 [place] mmol/L [facility] Chloride 105 94 - 109 [place] [facility] mmol/L [facility] Carbon Dioxide 28 20 - 32 [place] [place] mmol/L [facility] Anion Gap 5 (L) 6 - 17 [place] [place] mmol/L [facility] Glucose 98 60 - 115 [place] mg/dL [facility] Urea Nitrogen 22 7 - 30 [place] [facility] mg/dL [facility] Creatinine 0.80 0.80 - [place] [place] 1.50 mg/dL [facility] LAB GFR Estimate >80 >60 [place] [facility] mL/min/1.7 [facility] LAB m2 GFR Estimate If >80 >60 [facility] Black mL/min/1.7 CLINIC LAB m2 Calcium 9.0 8.5 - 10.4 [facility] mg/dL CL[facility] LAB Bilirubin Total 0.5 0.2 - 1.3 [facility] mg/dL [facility] Albumin 3.7 3.2 - 4.5 [facility] g/dL [facility] Protein Total 7.1 6.0 - 8.2 [facility] g/dL [facility] Alkaline 66 40 - 150 [facility] Phosphatase U/L CLINIC LAB ALT 52 0 - 70 U/L [facility] AST 40 0 - 55 U/L [facility] Specimen Anatomical Collection Method Collection Time Receive d Time (Source) Location / / Volume Laterality 04/25/2004 9:47 AM 9:52 CDT AM CDT Kannan Flores MD LABORATORY Performing Organization Address City/State/ZIP Code Phon e Number [facility] [address] [place] [address] [facility] documented in this encounter Visit Diagnoses Diagnosis Mixed hyperlipidemia Other psoriasis documented in this encounter
--- OUTSIDE RECORDS SUMMARY | 2022-07-19 08:28 | XMS_ITS | Encounter Summary ---
:1940 Author Organization [place] Address [facility] [place] [address] Care Team Providers Name Role Phone Unavailable Primary Care Provider Unavailable Reason for Visit Reason Comments RECHECK having radiation tx for eye ca.-needing lab work Encounter Details Date Type Department Care Team Description 08/31/2004 Office Visit [facility] Kannan Flores MD [facility] XXX RESIGNED XXX ENCOUNTER--DISREGARD [address] [place] [address] (Primary Dx) [place] [address] [place] [phone] (Wo rk) Social History Tobacco Use Types Packs/Day Years Used Date Smoking Tobacco: Never Alcohol Use Standard Drinks/Week Comments Yes 0 (1 standard drink = 0.6 oz pure alcoho l) Sex Assigned at Date Recorded Not on file documented as of this encounter Last Filed Vital Signs Vital Sign Reading Time Taken Comments Blood Pressure 128/90 08/31/2004 9:55 AM STEEL POST INSTALLER SUPERVISOR Pulse 62 08/31/2004 9:55 AM STEEL POST INSTALLER SUPERVISOR Temperature - - Respiratory Rate - - Oxygen Saturation - - Inhaled Oxygen Concentration - - Weight 139.3 kg (307 lb) 08/31/2004 9:55 AM STEEL POST INSTALLER SUPERVISOR Height - - Body Mass Index - - documented in this encounter Progress Notes Kannan Flores - 01/15/2005 11:20 AM CDT err documented in this encounter Nursing Notes 08/31/2004 9:30 AM CST >> ELISABET VALLECILLO 08/31/2004 9:56 am Haris Covingtonolive presents for lab work/consult-having radiation tx for eye ca. Initial BP 128/90 Pulse 62 Wt 307 lbs (139.3kg). BP completed using cuff size: large. documented in this encounter Plan of Treatment Upcoming Encounters Date Type Specialty Care Team Description 08/16/2022 Ancillary Procedure Cardiology Timothy Smith MD [address] [place] [phone] (Wo rk) 08/16/2022 Office Visit Cardiology Timothy Smith MD [address] [place] [phone] (Wo rk) documented as of this encounter Visit Diagnoses Diagnosis ERRONEOUS ENCOUNTER--DISREGARD - Primary documented in this encounter
[2022-07-19 14:02] LABS: Iron* 81 ug/dL (49-181)
[2022-07-19 14:12] LABS: Chloride* 99 mmol/L (96-114); Percent Iron Saturation 26 % (20-50); Sodium* 137 mmol/L (135-149); Total Iron Binding Capacity 316 ug/dL (261-462)
[2022-07-19 14:13] LABS: Potassium* 4.7 mmol/L (3.6-5.1)
[2022-07-19 14:16] LABS: Blood Urea Nitrogen* 34 mg/dL (7-30); Calcium* 9.8 mg/dL (8.4-10.6); Carbon Dioxide* 28 mmol/L (20-32); Creatinine* 1.6 mg/dL (0.5-1.5); Estimated Glomerular Filt Rate 42 ml/min; Glucose* 151 mg/dL (60-115); Phosphorus* 3.3 mg/dL (2.5-4.5)
[2022-07-19 14:41] LABS: Creatinine Urine 145.7 mg/dL
[2022-07-19 14:56] LABS: Microalbumin Creatinine Ratio 50 mg/g (0-30); Microalbumin Urine 8 mg/dL
== END 2022-07-19 08:16 | disposition home or self-care (01) ==
LOC: LONREF 08:16
PROVIDERS: PCP Family Medicine; Visit Provider Internal Medicine Nephrology
DX: D64.9 Anemia, unspecified (principal); N17.9 Acute kidney failure, unspecified; N18.30 Chronic kidney disease, stage 3 unspecified; E13.9 Other specified diabetes mellitus without complications; R82.90 Unspecified abnormal findings in urine
CPT/HCPCS: 80069; 82043; 82570; 82728; 83540; 83550; 87086

== ENCOUNTER 2022-07-26 10:47 | Outpatient (CLI) | payer MEDICARE, BC, SELFPAY ==
--- OUTSIDE RECORDS SUMMARY | 2022-07-26 10:50 | XMS_ITS | Clinical Summary ---
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 02/11/2016 without angina pectoris Lumbar foraminal [...] Name Administration Dates Next Due COVID-19 vaccine ([employer] 12/04/2020, 11/13/2020 30mcg/0.3mL) PF, MDV Influenza Virus, [...] Group MEDICARE PART B MEDICARE PART B [id number] 2003-Prese ATTN: CLAIMS - HB USE ONLY HB ONLY nt [address] [place] [address] MEDICARE PART A MEDICARE PART A [id number] 2003-Prese ATTN: CLAIMS - HB USE ONLY HB ONLY nt [address] [place] [address] BLUE CROSS BLUE CROSS [id number] 2016-[place] [address] [address] [address] [facility], [place] ONLY [id number] BLUE CROSS MR BLUE CROSS [id number] 2016-Eber [place] [address] [address] [place], [place] PB ONLY [phone] [facility]Tamiko Other 10/01/2000 [address] [facility] [place] (Work) [address] [place] [address] Advance Directives Latest Code Status on File Code Status Date Activated Date Inactivated Comments Full Code 02/22/2022 2:53 PM 03/02/2022 1:31 PM Code Status Discussion: Reviewed Preferences Full Code 02/21/2022 4:37 PM 02/22/2022 2:53 PM Code Status Discussion: Unable to Assess Preferences, Provid er to review later
--- OUTSIDE RECORDS SUMMARY | 2022-07-26 10:50 | XMS_ITS | Encounter Summary ---
:1940 Author Organization [place] Address [address] [facility] [place] [address] Care Team Providers Name Role Phone Timothy Smith MD Unavailable Graham Licona MD Primary Care Provider Reason for Visit Reason Onset Date Comments fax clearance 02/14/2022 Needs cardiac cleara nce for 02/21/22 surgery Encounter Details Date Type Department Care Team Description 02/14/2022 Telephone [facility] Heart Zarina Smith MD fax clearance ([facility] [place] [address] cardiac clearance for [address] 02/21/22 surgery) [facility] [address] [place] [address] [place] [phone] Social History Tobacco Use Types Packs/Day Years [...] 02/14/2022 4:23 PM CDT Second request from [facility] for cardiac clearance letter requested to be faxed [phone]. Fax sent. JNelsonRN Telephone Encounter - Temitope Tamayo RN - 02/14/2022 2:14 PM CDT Faxed over to [facility] signed letter from Dr Smith that patient is cleared for hip surgery scheduled for 02/21. Signed letter sent to [facility] to scan. SIENNA Okeefe Telephone Encounter - Timothy Smith MD - 02/14/2022 1:13 PM CDT YES Telephone Encounter - Anel Corado - 02/14/2022 9:41 AM CDT [facility] Call Center Phone Message May a detailed message be left on voicemail: yes Reason for Call: Other: [facility] calling in stating that pt is having hip surgery on 02/21/22 and they are needing a letter for cardiac clearance faxed over to them at [phone]. Action Taken: Message routed to: Other: ru cardio Travel Screening: Not Applicable documented in this encounter Plan of Treatment Upcoming Encounters Date Type Specialty Care Team Description 08/16/2022 Ancillary Procedure Cardiology Timothy Smith MD [address] [place] [phone] (Wo rk) 08/16/2022 Office Visit Cardiology Timothy Smith MD [address] [place] [phone] (Wo rk) documented as of this encounter Visit Diagnoses Not on filedocumented in this encounter Care Teams Manager Cath Lab Relationship Specialty Start Date End Date Graham Licona MD PCP - General Family Medicine 06/30/21 [facility] [address] [place] [address] Timothy Smith MD Assigned Heart and Vascular 07/23/20 [address] Provider [place] [phone] documented as of this encounter
--- OUTSIDE RECORDS SUMMARY | 2022-07-26 10:50 | XMS_ITS | Encounter Summary ---
:1940 Author Organization [place] Address [address] [facility] [place] [address] Care Team Providers Name Role Phone Timothy [...] [address] [place] [phone] (Wo rk) 08/16/2022 Office Visit Cardiology Timothy Smith MD [address] [place] [phone] (Wo rk) documented as of this encounter Visit Diagnoses Not on filedocumented in this encounter Care Teams Racking Technician Relationship Specialty Start Date End Date Graham Licona MD PCP - General Family Medicine 06/30/21 [facility] [address] [place] [address] Timothy Smith MD Assigned Heart and Vascular 07/23/20 [address] Provider [place] [id number] documented as of this encounter
--- OUTSIDE RECORDS SUMMARY | 2022-07-26 10:50 | XMS_ITS | Encounter Summary ---
:1940 Author Organization [place] Address [address] [facility] [place] [address] Care Team Providers Name Role Phone Timothy Smith MD Unavailable Graham Licona MD Primary Care Provider Reason for Visit Reason Onset Date Comments Implantable Devices 05/01/2022 Encounter Details Date Type Department Care Team Description 05/01/2022 Telephone [facility] Eve Santos, Impla ntable Devices [facility] Heart RN Care [facility] [address] [place] [address] Social History Tobacco Use Types [...] a hip replacement in January. Spoke with ISENNA Milian at patient's primary clinic who will [...] [address] [place] [phone] (Fiorella olvera) 08/16/2022 Office Visit Cardiology Timothy Smith MD [address] [place] [address] (Wo wade) documented as of this encounter Visit Diagnoses Not on filedocumented in this encounter Care Teams Auto Parts Counter Person Relationship Specialty Start Date End Date Graham Licona MD PCP - General Family Medicine 06/30/21 [facility] [address] [place] [address] Timothy Smith MD Assigned Heart and Vascular 07/23/[address] Provider [place] [address] documented as of this encounter
--- OUTSIDE RECORDS SUMMARY | 2022-07-26 10:50 | XMS_ITS | Encounter Summary ---
:1940 Author Organization [place] Address [address] [facility] [place] [address] Care Team Providers Name Role Phone Timothy [...] [address] [place] [phone] (Wo rk) 08/16/2022 Office Visit Cardiology Timothy Smith MD [address] [place] [phone] (Wo rk) documented as of this encounter Visit Diagnoses Not on filedocumented in this encounter Care Teams Pharmacy Clerk Relationship Specialty Start Date End Date Graham Licona MD PCP - General Family Medicine 06/30/21 [facility] [address] [place] [address] Timothy Smith MD Assigned Heart and Vascular 07/23/20 [address] Provider [place] [id number] documented as of this encounter
--- OUTSIDE RECORDS SUMMARY | 2022-07-26 10:50 | XMS_ITS | Encounter Summary ---
:1940 Author Organization [place] Address [address] [facility] 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 documented as of this encounter Plan of Treatment Upcoming Encounters Date Type Specialty Care Team Description 08/16/2022 Ancillary Procedure Cardiology Timothy Smith MD [address] [place] [phone] (Wo rk) 08/16/2022 Office Visit Cardiology Timothy Smith MD [address] [place] [phone] (Wo rk) documented as of this encounter Visit Diagnoses Not on filedocumented in this encounter Care Teams Unit Aide Relationship Specialty Start Date End Date Graham Licona MD PCP - General Family Medicine 06/30/21 [facility] [address] [place] [address] Timothy Smith MD Assigned Heart and Vascular 07/23/20 [address] Provider [place] [address] documented as of this encounter
--- OUTSIDE RECORDS SUMMARY | 2022-07-26 10:50 | XMS_ITS | Clinical Summary ---
:1940 Author Organization [place] Address [address] [facility] [place] [address] Care Team Providers Name Role Phone Timothy [...] Coronary artery disease needed for chest involving [place] pain coronary artery of [place] heart without angina pectoris metoprolol succinate ER [...] [address] [place] [phone] (Wo rk) 08/16/2022 Office Visit Cardiology Timothy Smith MD [address] [place] [phone] (Wo rk) Health Maintenance Due Date Last [...] this topic Medical Devices Implanted Type Area Drapery Installer Device Shelf Model / Identifier Expiration Serial / Date Lot Icd Resonate El Vr Df4 - [id number] ICD ANTOINE 09/09/2021 D432 / Implanted: Qty: 1 on 07/04/2021 at [facility] Tier 1 Performance [id number] / [id number] Lead Wires- Right Atrium-02/04/2016 Lead Wires- [employer] MEDICA L 8TC-52 / Implanted: 02/04/2016 by Timothy Smith MD (Quantity not on file) R ight Atrium INC [id number] / Explanted: 07/04/2021 (Quantity not on file) Lead Wires- Right Ventricle-02/04/2016 Lead Wires- ST [employer]ENCE MED ICAL 8TC-58 / Implanted: 02/04/2016 by Timothy Smith MD (Quantity not on file) Right INC [id number] / Explanted: 07/04/2021 (Quantity not on file) Ventricle Lead [place] Df4 Af 59 Cm 0272 - [id number] Leads ANTOINE 04/07/2023 0272 / Implanted: Qty: 1 on 07/04/2021 at [facility] Tier 1 Performance [id number] / [id number] Pacemaker-Dino Sci Pacemaker [place] ES [address] L121 / Implanted: 02/04/2016 by Timothy Smith MD (Quantity not on file) [employer] [id number] / Explanted: 07/04/2021 (Quantity not on file) [...] Range Method Time At Signature Date Time 86758847868119 [employer] Interrogation Session Implantable [place] [employer] Pulse Generator Drapery Installer Implantable D432 RESONATE EL [employer]TRONIC Pulse Generator ICD Model Implantable [id number] [employer] Pulse Generator Serial Number Type Remote [employer]IC Interrogation Session Clinic Name [facility] [employer] Implantable Defibrillator [employer] Pulse Generator Type Implantable [id number] MEDTRONIC Pulse Generator Implant Date Implantable Lead [place] [employer] Drapery Installer Implantable Lead [address] [place] [employer]IC Model 4-Site S Implantable Lead [id number] [employer]TRONIC Serial Number Implantable Lead [id number] [employer]TRONIC Implant Date Implantable Lead Bipolar Lead [...] [employer]TRONIC Pacing Threshold Pulse Width Battery Date 93864422851429 [employer]IC Time of Measurements Battery Status Beginning [...] Charge 41 J MEDTRONIC Energy Brandon Statistic 84450682020499 MEDTRONIC Date Time Start Brandon Statistic [id number] [employer]TRONIC Date Time End Brandon Statistic 3 % MEDTRONIC RV Percent Paced Therapy 6 MEDTRONIC Statistic Recent Shocks Delivered Therapy 0 MEDTRONIC Statistic Recent Shocks Aborted Therapy 26 MEDTRONIC Statistic Recent ATP Delivered Therapy 92221313098690 MEDTRONIC Statistic Recent Date Time Start Therapy 95829635289309 MEDTRONIC Statistic Recent Date Time End Therapy 6 MEDTRONIC Statistic Total Shocks Delivered Therapy 0 MEDTRONIC Statistic Total Shocks Aborted Therapy 34 [employer]TRONIC Statistic Total ATP Delivered Therapy 95027382972491 [employer]TRONIC Statistic Total Date Time End Episode [...] VT-1 MEDTRONIC Statistic Vendor Type Category Episode [id number] [employer]TRONIC Statistic Recent Date Time Start Episode [id number] [employer]TR[employer]IC Statistic Recent Date Time End Episode [id number] MEDTRONIC Statistic Recent Date Time Start Episode [id number] [employer]TRONIC Statistic Recent Date Time End Episode [id number] [employer]TRONIC Statistic Recent Date Time Start Episode [id number] MEDTRONIC Statistic Recent Date Time End Episode [id number] MEDTRONIC Statistic Recent Date Time Start Episode [id number] MEDTRONIC Statistic Recent Date Time End Episode [id number] [employer]TRONIC Statistic Recent Date Time Start Episode [id number] MEDTRONIC Statistic Recent Date Time End Episode APM-195 [employer]IC Identifier Episode Type Periodic EGM [employer]IC Category Episode Date [id number] [employer] Time Episode RVAT-406 [employer] Identifier Episode Type Other [employer]ONIC Category Episode Date [id number] [employer] Time Anatomical Region Laterality Modality Other Specimen (Source) Anatomical Collection Method Collection Time Re ceived Time Location / / Volume Laterality 06/26/2022 12:55 AM CDT Narrative 06/27/2022 11:01 AM CDT [place] [employer] Resonate (S) ICD Remote Device Check 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 UTILITY WORKER: 3% Mode: VVIR 50-130 ppm Presenting Rhythm: [...] ype Group Dates MEDICARE MEDICARE FOR HB [id number] 2003-Pres [phone] ATTN CLAIMS Medicare SUPPLEMENT ent 40 [address] [place] [address] BCBS BCBS KAW [id number] 2016-Prese [phone] [address] [address] PPO BLUE nt 00 [place] [address] (Home) [place] [phone] [address] (Work) Advance Directives For more information, please contact: [phone] Latest Code Status on File Code Status Date Activated Date Inactivated Comments Full Code 02/04/2016 9:52 AM 07/04/2021 11:49 AM Code Status History Code Status Date Activated Date Inactivated Comments Full Code 02/02/2016 9:20 PM 02/04/2016 9:52 AM Full Code 02/01/2012 2:37 PM 02/04/2012 6:16 PM Care Teams Freelance Programmer/App Developer Relationship Specialty Start Date End Date Graham Licona MD PCP - General Family Medicine 06/30/21 [facility] [address] [place] [address] Timothy Smith MD Assigned Heart and Vascular 07/23/[address] Provider [place] [address]
--- OUTSIDE RECORDS SUMMARY | 2022-07-26 10:50 | XMS_ITS | Encounter Summary ---
:1940 Author Organization [place] Address [address] [facility] [place] [address] Care Team Providers Name Role Phone Timothy Smith MD Unavailable Graham Licona MD Primary Care Provider Reason for Visit Reason Comments Medication Question Re eliquis dose Encounter Details Date Type Department Care Team Description 05/29/2022 Documentation Only [facility] Catherine Aranda edication Question Heart Clinic Patt Crenshaw LPN (Re eliquis dose) [address] [facility] [address] [place] [phone] Social [...] [address] [place] [address] (Wo rk) 08/16/2022 Office Visit Cardiology Timothy Smith MD [address] [place] [phone] (Wo rk) documented as of this encounter Visit Diagnoses Not on filedocumented in this encounter Care Teams Service Administrator Relationship Specialty Start Date End Date Graham Licona MD PCP - General Family Medicine 06/30/21 [facility] [address] [place] [address] Timothy Smith MD Assigned Heart and Vascular 07/23/20 [address] Provider [place] [phone] documented as of this encounter
--- OUTSIDE RECORDS SUMMARY | 2022-07-26 10:50 | XMS_ITS | Encounter Summary ---
:1940 Author Organization [place] Address [address] [facility] [place] [address] Care Team Providers Name Role Phone Timothy Smith MD Unavailable Graham Licona MD Primary Care Provider Encounter Details Date Type Department Care Team Description 01/30/2022 [facility] Sandrine Whitman bryn [facility] [address] [facility] [address] [place] [address] Social History Tobacco Use Types [...] were not included. Alert received from patients [place] [employer] single chamber ICD for ATP therapy [...] V rates of 180-190bpm. Patient presented to [facility] on 01/27/22 after receiving shocks [...] [address] [place] [id number] (Wo wade) 08/16/2022 Office Visit Cardiology Timothy Smith MD [address] [place] [phone] (Wo rk) documented as of this encounter Visit Diagnoses Diagnosis Sustained VT (ventricular tachycardia) - Primary Paroxysmal ventricular tachycardia documented in this encounter Care Teams General Farm Manager Relationship Specialty Start Date End Date Graham Licona MD PCP - General Family Medicine 06/30/21 [facility] [address] [place] [address] Timothy Smith MD Assigned Heart and Vascular 07/23/[address] Provider [place] [address] documented as of this encounter
--- OUTSIDE RECORDS SUMMARY | 2022-07-26 10:50 | XMS_ITS | Encounter Summary ---
:1940 Author Organization [place] Address [address] [facility] [place] [address] Care Team Providers Name Role Phone Timothy Smith MD Unavailable Graham Licona MD Primary Care Provider Encounter Details Date Type Department Care Team Description 03/06/2022 [facility] Keyshawn Myers RN [facility] Heart [address] [place] [address] Social History Tobacco Use Types [...] [address] [place] [phone] (Wo rk) 08/16/2022 Office Visit Cardiology Timothy Smith MD [address] [place] [phone] (Wo rk) documented as of this encounter Visit Diagnoses Not on filedocumented in this encounter Care Teams Warble Saw Operator Relationship Specialty Start Date End Date Graham Licona MD PCP - General Family Medicine 06/30/21 [facility] [address] [place] [address] Timothy Smith MD Assigned Heart and Vascular 07/23/20 [address] Provider [place] [address] documented as of this encounter
--- OUTSIDE RECORDS SUMMARY | 2022-07-26 10:50 | XMS_ITS | Encounter Summary ---
:1940 Author Organization [place] Address [address] [facility] [place] [address] Care Team Providers Name Role Phone Timothy Smith MD Unavailable Graham Licona MD Primary Care Provider Encounter Details Date Type Department Care Team Description 03/20/2022 [facility] Janeth Huizar RN [facility] Heart [address] [place] [address] Social History Tobacco Use Types [...] day. Pt requested script be sent to [facility] in [place], [place]. Will escribe this. Pt will call if he has any adverse reactions to this medication switch. Telephone Encounter - Timothy Smith MD - 03/21/2022 3:40 PM CDT OK to keep current dose of metoprolol. Telephone Encounter - Charito Huizar RN - 03/21/2022 10:52 AM CDT Is he to continue the Metoprolol as well? Pt was told by hospitalist at [facility] to take 1/2 of 25mg (12.5mg) Toprol [...] reports he was in the hospital at [facility]. He reports he was discharged on Metoprolol [...] Attempted to reach Dr. Shaikh SANTANA at [facility] but prescribing MD was a hospitalist and [...] [address] [place] [phone] (Wo wade) 08/16/2022 Office Visit Cardiology Timothy Smith MD [address] [place] [phone] (Fiorella olvera) documented as of this encounter Visit Diagnoses Diagnosis Sustained VT (ventricular tachycardia) - Primary Paroxysmal ventricular tachycardia documented in this encounter Care Teams Resident Services Manager Relationship Specialty Start Date End Date Graham Licona MD PCP - General Family Medicine 06/30/21 [facility] [address] [place] [address] Timothy Smith MD Assigned Heart and Vascular 07/23/20 [address] Provider [place] [id number] documented as of this encounter
--- OUTSIDE RECORDS SUMMARY | 2022-07-26 10:50 | XMS_ITS | Encounter Summary ---
:1940 Author Organization [place] Address [address] [place] [address] Care Team Providers Name Role Phone Timothy Smith MD Unavailable Graham Licona MD Primary Care Provider Reason for Visit CV Testing (Routine) - Pending Review Specialty Diagnoses / Procedures Referred By Contact Refer red To Contact Diagnoses Cardiac pacemaker in situ Steven Canchola Procedures Cardiac Device Check - Remote (Standing ORD 4 count) [address] [place] [address] Referral ID Status Reason Start Date Expiration Date Visits V isits Requested Authorized [id number] Pending 03/20/2022 03/20/2023 100 100 Review Encounter Details Date Type Department Care Team Description 06/26/2022 Ancillary [facility] Steven Canchola Card iac pacemaker Procedure [facility] MD Jose in situ Heart Care [address] [place] [address] [place] [phone] (Wo rk) [address] [phone] Social History Tobacco Use Types Packs/Day Years [...] [address] [place] [phone] (Wo rk) 08/16/2022 Office Visit Cardiology Timothy Smith MD [address] [place] [address] (Wo rk) documented as of this encounter [...] Range Method Time At Signature Date Time [id number] [employer] Interrogation Session Implantable [place] [employer] Pulse Generator Guest Services Representative Implantable D432 RESONATE EL [employer] Pulse Generator ICD Model Implantable [id number] [employer] Pulse Generator Serial Number Type Remote [employer] Interrogation Session Clinic Name [facility] [employer] Implantable Defibrillator [employer] Pulse Generator Type Implantable [id number] [employer] Pulse Generator Implant Date Implantable Lead [place] [employer] Guest Services Representative Implantable Lead [address] [place] [employer] Model 4-Site S Implantable Lead 539648 [employer] Serial Number Implantable Lead [id number] [employer] Implant Date Implantable Lead Bipolar Lead [...] [employer] Pacing Threshold Pulse Width Battery Date [id number] [employer] Time of Measurements Battery Status Beginning [...] Charge 41 J [employer] Energy Brandon Statistic [id number] [employer] Date Time Start Brandon Statistic [id number] [employer] Date Time End Brandon Statistic 3 % [employer] RV Percent Paced Therapy 6 [employer] Statistic Recent Shocks Delivered Therapy 0 [employer]ONIC Statistic Recent Shocks Aborted Therapy 26 [employer] Statistic Recent ATP Delivered Therapy [id number] [employer]IC Statistic Recent Date Time Start Therapy [id number] MEDTRONIC Statistic Recent Date Time End Therapy 6 MEDTRONIC Statistic Total Shocks Delivered Therapy 0 MEDTRONIC Statistic Total Shocks Aborted Therapy 34 [employer]IC Statistic Total ATP Delivered Therapy 78307195377944 [employer] Statistic Total Date Time End Episode [...] VT-1 [employer] Statistic Vendor Type Category Episode [id number] [employer] Statistic Recent Date Time Start Episode [id number] [employer] Statistic Recent Date Time End Episode [id number] [employer] Statistic Recent Date Time Start Episode [id number] [employer] Statistic Recent Date Time End Episode [id number] [employer] Statistic Recent Date Time Start Episode [id number] [employer] Statistic Recent Date Time End Episode [id number] [employer]IC Statistic Recent Date Time Start Episode [id number] [employer] Statistic Recent Date Time End Episode [id number] [employer] Statistic Recent Date Time Start Episode [id number] [employer] Statistic Recent Date Time End Episode APM-195 [employer] Identifier Episode Type Periodic EGM [employer] Category Episode Date [id number] [employer] Time Episode RVAT-406 [employer] Identifier Episode Type Other [employer] Category Episode Date [id number] [employer] Time Anatomical Region Laterality Modality Other Specimen (Source) Anatomical Collection Method Collection Time Re ceived Time Location / / Volume Laterality 06/26/2022 12:55 AM CDT Narrative 06/27/2022 11:01 AM CDT [place] [employer] Resonate (S) ICD Remote Device Check 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
--- OUTSIDE RECORDS SUMMARY | 2022-07-26 10:50 | XMS_ITS | Encounter Summary ---
:1940 Author Organization [place] Address [address] [place] [address] Care Team Providers Name Role Phone Timothy Smith MD Unavailable Graham Licona MD Primary Care Provider Reason for Referral CV Testing (Routine) - Pending Review Specialty Diagnoses / Procedures Referred By Contact Refer red To Contact Diagnoses Cardiac pacemaker in situ Steven Canchola, Procedures Cardiac Device Check - Remote (Standing ORD 4 count) [address] [place] [address] Referral ID Status Reason Start Date Expiration Date Visits V isits Requested Authorized [id number] Pending 03/20/2022 03/20/2023 100 100 Review Reason for Visit CV Testing (Routine) - Pending Review Specialty Diagnoses / Procedures Referred By Contact Refer red To Contact Diagnoses Cardiac pacemaker in situ Steven Canchola, Procedures Cardiac Device Check - Remote [address] [place] [address] Referral ID Status Reason Start Date Expiration Date Visits V isits Requested Authorized [id number] Pending 03/20/2022 03/20/2023 1 1 Review Encounter Details Date Type Department Care Team Description 03/20[facility]2022 [facility] Steven Canchola Card iac pacemaker Procedure [facility] MD Jose in situ Heart Care [address] [place] [address] [place] [phone] (Wo rk) [address] [phone] Social History Tobacco Use Types Packs/Day Years [...] [address] [place] [phone] (Wo rk) 08/16/2022 Office Visit Cardiology Timothy Smith MD [address] [place] [phone] (Wo rk) Scheduled Orders Name Type Priority [...] Range Method Time At Signature Date Time [id number] [employer] Interrogation Session Implantable [place] [employer] Pulse Generator Office Support Associate Implantable D432 RESONATE EL [employer] Pulse Generator ICD Model Implantable [id number] [employer] Pulse Generator Serial Number Type Remote [employer] Interrogation Session Clinic Name [facility] [employer] Implantable Defibrillator [employer]IC Pulse Generator Type Implantable [id number] MED[employer]IC Pulse Generator Implant Date Implantable Lead [place] [employer] Office Support Associate Implantable Lead [address] [place] [employer] Model 4-Site S Implantable Lead 980759 [employer] Serial Number Implantable Lead [id number] [employer] Implant Date Implantable Lead Bipolar Lead [...] Capacitor Charge Reformation [employer] Type Capacitor Last [id number] [employer] Charge Date Time Capacitor Charge 8.8 s [employer]IC Time Capacitor Charge Shock [employer] Type Capacitor Last [employer] Charge Date Time Capacitor Charge 6.8 s [employer]IC Time Capacitor Charge 41 J [employer] Energy Brandon Statistic [id number] [employer]IC Date Time Start Brandon Statistic 09577781410440 [employer] Date Time End Brandon Statistic 3 % [employer] RV Percent Paced Therapy 6 [employer]IC Statistic Recent Shocks Delivered Therapy 0 [employer]IC Statistic Recent Shocks Aborted Therapy 26 [employer]IC Statistic Recent ATP Delivered Therapy [employer]ONIC Statistic Recent Date Time Start Therapy 76431226447087 [employer] Statistic Recent Date Time End Therapy 6 [employer]IC Statistic Total Shocks Delivered Therapy 0 [employer]IC Statistic Total Shocks Aborted Therapy 34 [employer]IC Statistic Total ATP Delivered Therapy 71320382774462 [employer]IC Statistic Total Date Time End Episode [...] VT-1 MEDTRONIC Statistic Vendor Type Category Episode [id number] [employer]TR[employer]IC Statistic Recent Date Time Start Episode [id number] MEDTR[employer]IC Statistic Recent Date Time End Episode [id number] [employer] Statistic Recent Date Time Start Episode [id number] [employer]IC Statistic Recent Date Time End Episode [id number] [employer]IC Statistic Recent Date Time Start Episode [id number] [employer]IC Statistic Recent Date Time End Episode [id number] [employer] Statistic Recent Date Time Start Episode [id number] [employer]IC Statistic Recent Date Time End Episode [id number] [employer]IC Statistic Recent Date Time Start Episode [id number] [employer]IC Statistic Recent Date Time End Episode APM-195 [employer] Identifier Episode Type Periodic EGM [employer] Category Episode Date [id number] [employer] Time Episode RVAT-406 [employer] Identifier Episode Type Other [employer] Category Episode Date [id number] [employer] Time Anatomical Region Laterality Modality Other Specimen (Source) Anatomical Collection Method Collection Time Re ceived Time Location / / Volume Laterality 06/26/2022 12:55 AM CDT Narrative 06/27/2022 11:01 AM CDT [place] [employer] Resonate (S) ICD Remote Device Check DEVELOPMENT TEAM LEAD: 3% Mode: VVIR 50-130 ppm Presenting Rhythm: [...] Signature Date Time [employer] Interrogation Session Implantable [place] [employer] Pulse Generator Office Support Associate Implantable D432 RESONATE EL [employer] Pulse Generator ICD Model Implantable 290815 [employer] Pulse Generator Serial Number Type Remote [employer] Interrogation Session Clinic Name [place] [employer] Implantable Defibrillator [employer]IC Pulse Generator Type Implantable [id number] MED[employer]IC Pulse Generator Implant Date Implantable Lead [place] [employer] Office Support Associate Implantable Lead [address] [place] [employer] Model 4-Site S Implantable Lead 331003 [employer] Serial Number Implantable Lead [id number] MEDTRONIC Implant Date Implantable Lead Bipolar Lead [...] Capacitor Charge Reformation [employer]IC Type Capacitor Last 14964012403406 [employer] Charge Date Time Capacitor Charge 8.8 s MEDTRONIC Time Capacitor Charge Shock [employer] Type Capacitor Last 53042921567224 [employer] Charge Date Time Capacitor Charge 6.8 s [employer]IC Time Capacitor Charge 41 J [employer] Energy Brandon Statistic [id number] [employer]IC Date Time Start Brandon Statistic 81253307315993 [employer]IC Date Time End Brandon Statistic 3 % [employer] RV Percent Paced Therapy 6 [employer]IC Statistic Recent Shocks Delivered Therapy 0 MEDTRONIC Statistic Recent Shocks Aborted Therapy 26 [employer]TRONIC Statistic Recent ATP Delivered Therapy 78367353173307 [employer]TRONIC Statistic Recent Date Time Start Therapy 87121868832870 [employer]TRONIC Statistic Recent Date Time End Therapy 6 [employer]TRONIC Statistic Total Shocks Delivered Therapy 0 [employer]TRONIC Statistic Total Shocks Aborted Therapy 34 [employer]IC Statistic Total ATP Delivered Therapy 34406570305419 [employer]ONIC Statistic Total Date Time End Episode [...] VT-1 MEDTRONIC Statistic Vendor Type Category Episode [id number] MEDTRONIC Statistic Recent Date Time Start Episode [id number] [employer]IC Statistic Recent Date Time End Episode [id number] [employer]TRONIC Statistic Recent Date Time Start Episode [id number] [employer]TRONIC Statistic Recent Date Time End Episode [id number] [employer]TRONIC Statistic Recent Date Time Start Episode [id number] MEDTRONIC Statistic Recent Date Time End Episode [id number] [employer]TR[employer]IC Statistic Recent Date Time Start Episode [id number] [employer]TRONIC Statistic Recent Date Time End Episode [id number] [employer]TRONIC Statistic Recent Date Time Start Episode [id number] MEDTRONIC Statistic Recent Date Time End Episode APM-133 [employer]IC Identifier Episode Type Periodic EGM [employer] Category Episode Date [id number] [employer] Time Episode RVAT-293 [employer] Identifier Episode Type Other [employer]IC Category Episode Date [id number] [employer] Time Anatomical Region Laterality Modality Other Specimen (Source) Anatomical Collection Method Collection Time Re ceived Time Location / / Volume Laterality 03/19/2022 1:07 AM CDT Narrative 03/26/2022 9:18 AM CDT [place] [employer] Resonate(S) ICD Remote Device Check ?? DEVELOPMENT TEAM LEAD: 3 % ?? Mode: VVIR 50-130 [...] into 4s. per 's note from [facility], pt is to be on 12.5mg. Unable to talk with that physician or his nurse . pt is currently taking 25mg of Toprolol XL. ??per Dr. Tomlin's note [facility]: CHANGE how you take [...] and unable to reach ordering provider at [facility]. SH/RN I have reviewed and interpreted the agustín ce interrogation, settings, programming and nurse's summary. The dev ice is functioning within normal device parameters. I agree with the curr ent findings, assessment and plan. 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
--- OUTSIDE RECORDS SUMMARY | 2022-07-26 10:50 | XMS_ITS | Encounter Summary ---
:1940 Author Organization [place] Address [address] [facility] [place] [address] Care Team Providers Name Role Phone Timothy Smith MD Unavailable Graham Licona MD Primary Care Provider Reason for Referral Consultation (Routine: Next available opening) - Pending Review Specialty Diagnoses / Procedures Referred By Contact Refer red To Contact Cardiovascular Disease Diagnoses Paroxysmal ventricular tachycardia Timothy Smith MD [address] [place] [address] Referral ID Status Reason Start Date Expiration Date Visits V isits Requested Authorized [id number] Pending 02/08/2022 02/08/2023 1 1 Review iagnostic Imaging XR (Routine) - Pending Review Specialty Diagnoses / Procedures Referred By Contact Refer red To Contact Diagnoses Paroxysmal ventricular tachycardia Timothy Smith MD Procedures XR Chest [address] [place] [address] Referral ID Status Reason Start Date Expiration Date Visits V isits Requested Authorized [id number] Pending 02/08/2022 02/08/2023 1 1 Review Reason for Visit Reason Comments Annual Visit Annual f/up (Routine) - Closed Specialty Diagnoses / Procedures Referred By Contact Refer red To Contact Diagnoses Sustained VT (ventricular tachycardia) Timothy Smith MD [address] [place] [address] Referral ID Status Reason Start Date Expiration Date Visits Requ ested Visits Authorized [id number] Closed 03/23/2021 03/23/2022 1 1 Encounter Details Date Type Department Care Team Description 02/08/2022 Office Visit [facility] Timothy Smith MD Persistent atrial fibrillation (H) (Prim arnie Dx); [facility] [address] Paroxysmal ventricular tachycardia (H) [place] [address] [address] [place], [place] [address] [address] [place], [place] (Work) [address] Social History Tobacco Use [...] 6 months. cc: Juan José Licona MD [facility] [address] [place] [address] Timothy Smith MD MT: angela Name: RADHA VILLA Account: [id number] : 1940 Service Date: 02/08/2022 Document: [id number] Timothy Smith MD - 02/08/2022 3:15 PM [...] Chris De Leon MD; Location: HEART CARDIAC SHAKER SCREEN OPERATOR ??? EP PACEMAKER 02/04/2016 [facility] ??? HC [...] Other Topics Concern ??? Parent/sibling w/ CABG, [place] or angioplasty before 65F 55M? No ??? [...] Oriented x 3 CC Timothy Smith MD [address] [place] [address] documented in this encounter Plan of Treatment Upcoming Encounters Date Type Specialty Care Team Description 08/16/2022 Ancillary Procedure Cardiology Timothy Smith MD [address] [place] [phone] (Fiorella olvera) 08/16/2022 Office Visit Cardiology Timothy Smith MD [address] [place] [phone] (Fiorella olvera) Scheduled Orders Name Type Priority [...] tachycardia documented in this encounter Care Teams Chef De [place]ie Relationship Specialty Start Date End Date Graham Licona MD PCP - General Family Medicine 06/30/21 [facility] [address] [place] [address] Timothy Smith MD Assigned Heart and Vascular 07/23/20 [address] Provider [place] [id number] documented as of this encounter
--- OUTSIDE RECORDS SUMMARY | 2022-07-26 10:50 | XMS_ITS | Encounter Summary ---
:1940 Author Organization [place] Address [address] [facility] [place] [address] Care Team Providers Name Role Phone Timothy Smith MD Unavailable Graham Licona MD Primary Care Provider Encounter Details Date Type Department Care Team Description 12/09/2021 [facility] Keyshawn Myers RN [facility] Heart [address] [place] [address] Social History Tobacco Use Types Packs/Day Years Used Date Smoking Tobacco: Never Smokeless Tobacco: Never Alcohol Use Standard Drinks/Week Comments No 0 (1 standard drink = 0.6 oz pure alcoho l) Sex Assigned at Date Recorded Not on file COVID-19 Exposure Response Date Recorded In the last month, have you been in contact Unable to assess 12/02/2021 12:08 PM DIE TESTER with someone who was confirmed or suspected [...] diuretic dosage. Janny appreciative for the information. TESTER Telephone Encounter - Kitty Myers, RN - [...] Patient states understanding and agreement with plan. TESTER documented in this encounter Plan of Treatment Upcoming Encounters Date Type Specialty Care Team Description 08/16/2022 Ancillary Procedure Cardiology Timothy Smith MD [address] [place] [address] (Wo rk) 08/16/2022 Office Visit Cardiology Timothy Smith MD [address] [place] [address] (Wo rk) documented as of this encounter Visit Diagnoses Not on filedocumented in this encounter Care Teams Ordnance Truck Installation Mechanic Relationship Specialty Start Date End Date Graham Licona MD PCP - General Family Medicine 06/30/[address] [facility] [address] [place] [address] Timothy Smith MD Assigned Heart and Vascular 07/23/20 [address] Provider [place] [address] documented as of this encounter
--- OUTSIDE RECORDS SUMMARY | 2022-07-26 10:50 | XMS_ITS | Encounter Summary ---
:1940 Author Organization [facility] Address [address] [facility] [facility] [place] [address] Care Team Providers Name Role Phone Timothy Smith MD Unavailable Graham Licona MD Primary Care Provider Reason for Visit Reason Comments Heart Problem ICD shocks Encounter Details Date Type Department Care Team Description 01/27/2022 Documentation Only [facility] Catherine Aranda eart Problem (ICD Heart [facility] [place] Crenshaw LPN shocks) [address] [facility] [address] [place] [address] Social History Tobacco Use Types Packs/Day [...] now. Patient states that [facility] They felt that he was in stable [...] [address] [place] [address] (Wo rk) 08/16/2022 Office Visit Cardiology Timothy Smith MD [address] [place] [address] (Wo rk) documented as of this encounter Visit Diagnoses Not on filedocumented in this encounter Care Teams Manager Market Development Relationship Specialty Start Date End Date Graham Licona MD PCP - General Family Medicine 06/30/21 [facility] [address] [place] [address] Timothy Smith MD Assigned Heart and Vascular 07/23/20 [address] Provider [place] [address] documented as of this encounter
--- OUTSIDE RECORDS SUMMARY | 2022-07-26 10:51 | XMS_ITS | Encounter Summary ---
:1940 Author Organization [place] Address [address] [facility] [place] [address] Care Team Providers Name Role Phone Timothy Smith MD Unavailable Graham Licona MD Primary Care Provider Encounter Details Date Type Department Care Team Description 07/14/2021 Documentation Only [facility] [place] RN [address] [facility] [address] [place] [phone] Social History Tobacco Use Types Packs/Day Years [...] [address] [place] [address] (Wo rk) 08/16/2022 Office Visit Cardiology Timothy Smith MD [address] [place] [id number] (Wo rk) documented as of this encounter Visit Diagnoses Not on filedocumented in this encounter Care Teams First Aid Teacher Relationship Specialty Start Date End Date Graham Licona MD PCP - General Family Medicine 06/30/21 [facility] [address] [place] [address] Timothy Smith MD Assigned Heart and Vascular 07/23/20 [address] Provider [place] [address] documented as of this encounter
--- OUTSIDE RECORDS SUMMARY | 2022-07-26 10:51 | XMS_ITS | Encounter Summary ---
:1940 Author Organization [place] Address [address] [facility] [facility] [place] [address] Care Team Providers Name Role Phone Timothy Smith MD Unavailable Graham Licona MD Primary Care Provider Reason for Visit Reason Onset Date Comments Implantable Devices 09/12/2021 HeartLogic alert Encounter Details Date Type Department Care Team Description 09/12/2021 Telephone [facility] Sintia Muhammad, Impl antable Devices [facility] RN (HeartLog ic alert) Heart Care [address] [place] [address] [place] [phone] Social History Tobacco Use Types Packs/Day Years Used Date Smoking Tobacco: Never Smokeless Tobacco: Never Alcohol Use Standard Drinks/Week Comments No 0 (1 standard drink = 0.6 oz pure alcoho l) Sex Assigned at Date Recorded Not on file COVID-19 Exposure Response Date Recorded In the last month, have you been in contact with No / Unsure 08/24/2021 10:48 AM LINUX NETWORK SYSTEMS ADMINISTRATOR someone who was confirmed or suspected to [...] to monitor at this time. SIENNA Hatch X NETWORK SYSTEMS ADMINISTRATOR Telephone Encounter - Sintia Muhammad RN - [...] understanding and appreciation for call. SIENNA Hatch X NETWORK SYSTEMS ADMINISTRATOR Telephone Encounter - Timothy Smith MD - 09/13/2021 4:28 PM CST I am not able to manage heart failure with frequent visit. This patient has severe renal insufficiency. The first step may be with his PMD for evaluation and diuretic titration. If that does not work, then CORE clinic is recommended. X NETWORK SYSTEMS ADMINISTRATOR Telephone Encounter - Sintia Muhammad RN - 09/12/2021 12:01 PM CST Images from the original note were not included. [place] ICD remote alert received for HeartLogic at [...] any extra Lasix. Will route message to Saadai to determine plan and will update patient after shehas reviewed the information. SIENNA Hatch X NETWORK SYSTEMS ADMINISTRATOR documented in this encounter Plan of Treatment Upcoming Encounters Date Type Specialty Care Team Description 08/16/2022 Ancillary Procedure Cardiology Timothy Smith MD [address] [place] [id number] (Wo wade) 08/16/2022 Office Visit Cardiology Timothy Smith MD [address] [place] [address] (Wo wade) documented as of this encounter Visit Diagnoses Not on filedocumented in this encounter Care Teams Crossbar Switch Adjuster Relationship Specialty Start Date End Date Graham Licona MD PCP - General Family Medicine 06/30/21 [facility] [address] [place] [address] Timothy Smith MD Assigned Heart and Vascular 07/23/20 [address] Provider [place] [address] documented as of this encounter
--- OUTSIDE RECORDS SUMMARY | 2022-07-26 10:51 | XMS_ITS | Encounter Summary ---
:1940 Author Organization [place] Address [address] [facility] [place] [address] Care Team Providers Name Role Phone Timothy Smith MD Unavailable Graham Licona MD Primary Care Provider Reason for Visit CV Testing (Routine) - Closed Specialty Diagnoses / Procedures Referred By Contact Refer red To Contact Diagnoses Cardiac pacemaker in situ Chris De Leon MD Procedures Cardiac Device Check - Remote (Post implant follow up) [address] [place] [id number] Referral ID Status Reason Start Date Expiration Date Visits Requ ested Visits Authorized [id number] Closed 07/05/2021 07/05/2022 1 1 Encounter Details Date Type Department Care Team Description 11/23/2021 Ancillary Procedure [facility] Chris De Leon, Cardiac pacemaker in [facility] situ Heart Care [address] [facility] [address] [place] [address] [place] [phone] [phone] Social History Tobacco Use Types Packs/Day Years [...] [address] [place] [phone] (Wo rk) 08/16/2022 Office Visit Cardiology Timothy Smith MD [address] [place] [address] (Wo rk) documented as of this encounter Procedures Procedure Name Priority Date/Time Associated Comments Diagnosis INTERROGATION DEVICE Routine 11/24/2021 1:06 PM Cardiac pacema ker Results for this EVAL REMOTE ICD UP TO CARRY OUT CLERK AND SHELF STOCKER in situ proced ure are in 90 the results section. documented in this encounter Results INTERROGATION DEVICE EVAL REMOTE ICD UP TO 90 (11/24/2021 1:06 PM CARRY OUT CLERK AND SHELF STOCKER) Component Value Ref Test Analysis Performed Pathtuul t Range Method Time At Signature Date Time [id number] MEDTR[employer]IC Interrogation Session Implantable [employer]ONIC Pulse Generator Portfolio Manager Implantable D432 RESONATE EL MEDTRONIC Pulse Generator ICD Model Implantable [id number] MEDTRONIC Pulse Generator Serial Number Type Remote MEDTRONIC Interrogation Session Clinic Name [facility]ONIC Implantable Defibrillator MEDTRONIC Pulse Generator Type Implantable [id number] MEDTRONIC Pulse Generator Implant Date Implantable Lead [employer] MED[employer] ONIC Portfolio Manager Implantable Lead [address] [place] MEDTRONIC Model 4-Site S Implantable Lead 270713 MEDTRONIC Serial Number Implantable Lead [id number] MEDTRONIC Implant Date Implantable Lead Bipolar Lead [...] Capacitor Charge Reformation MEDTRONIC Type Capacitor Last [id number] MEDTRONIC Charge Date Time Capacitor Charge 9.1 s MEDTRONIC Time Brandon Statistic [id number] MEDTRONIC Date Time Start Brandon Statistic [id number] MEDTRONIC Date Time End Brandon Statistic 3 % MEDTRONIC RV Percent Paced Therapy 0 MEDTRONIC Statistic Recent Shocks Delivered Therapy 0 MEDTRONIC Statistic Recent Shocks Aborted Therapy 0 MEDTRONIC Statistic Recent ATP Delivered Therapy [id number] MEDTRONIC Statistic Recent Date Time Start Therapy [id number] MEDTRONIC Statistic Recent Date Time End Therapy 0 MEDTRONIC Statistic Total Shocks Delivered Therapy 0 MEDTRONIC Statistic Total Shocks Aborted Therapy 8 MEDTRONIC Statistic Total ATP Delivered Therapy [id number] MEDTRONIC Statistic Total Date Time End Episode [...] VT-1 MEDTRONIC Statistic Vendor Type Category Episode [id number] MEDTRONIC Statistic Recent Date Time Start Episode [id number] MEDTRONIC Statistic Recent Date Time End Episode [id number] MEDTRONIC Statistic Recent Date Time Start Episode [id number] MEDTRONIC Statistic Recent Date Time End Episode [id number] MEDTRONIC Statistic Recent Date Time Start Episode [id number] MEDTRONIC Statistic Recent Date Time End Episode [id number] MEDTRONIC Statistic Recent Date Time Start Episode [id number] MEDTRONIC Statistic Recent Date Time End Episode [id number] MEDTRONIC Statistic Recent Date Time Start Episode [id number] MEDTRONIC Statistic Recent Date Time End Episode APM-55 MEDTRONIC Identifier Episode Type Periodic EGM MEDTRONIC Category Episode Date MEDTRONIC Time Episode RVAT-160 MEDTRONIC Identifier Episode Type Other MEDTRONIC Category Episode Date [id number] [facility]ONIC Time Anatomical Region Laterality Modality Other Specimen (Source) Anatomical Collection Method Collection Time Re ceived Time Location / / Volume Laterality 11/23/2021 12:40 AM CARRY OUT CLERK AND SHELF STOCKER Narrative 12/04/2021 10:04 AM CARRY OUT CLERK AND SHELF STOCKER [employer] Resonate (S) ICD Remote Device Check ADDICTION SOCIAL WORKER: 3 % ?? Mode: VVIR 50-130 ?? [...] situ documented in this encounter Care Teams Cleaning And Maintenance Worker Relationship Specialty Start Date End Date Graham Licona MD PCP - General Family Medicine 06/30/21 [facility] [address] [place] [address] Timothy Smith MD Assigned Heart and Vascular 07/23/[address] Provider [place] [address] documented as of this encounter
--- OUTSIDE RECORDS SUMMARY | 2022-07-26 10:51 | XMS_ITS | Encounter Summary ---
:1940 Author Organization [place] Address [address] [place] [address] Care Team Providers Name Role Phone Timothy Smith MD Unavailable Graham Licona MD Primary Care Provider Reason for Visit Auth/Cert Specialty Diagnoses / Procedures Referred By Contact Refer red To Contact Med Surg Diagnoses Sustained [place] (ventricular tachycardia) Cardiac pacemaker in situ [place] Care Suites Procedures HC ICD IMPLANT, SINGLE / DUAL W LEAD INSERTION/REPOSITIONING Implantable Cardioverter-Defibrillator (ICD) [address] [place] [place] [phone] Phone: Referral ID Status Reason Start Date Expiration Date Visits Requ ested Visits Authorized [id number] 1 1 Encounter Details Date Type Department Care Team Description 07/04/2021 Hospital Encounter [facility] Timothy Smith MD [address] [place] [address] Sustained [place] (ventricular tachycardia) ( H); [facility] Kaur De Leon MD [address] [place] [address] Cardiac [...] If you need to change it, use [id number] gauze and a large clear bandage. ??? [...] 10 minutes. ??? Once bleeding stops, call [facility] Heart Clinic as soon as you [...] ??? Follow up with Device Clinic at [facility] Heart Clinic of patient preference in [...] says you have a defibrillator (ICD). Go [email or web address]. ??? Always tell doctors, dentists and other [...] Device Safety: ??? Please refer to device manuscripts archivist???s booklet for further information. [facility] [place]: [phone] UMP (7 days a week) documented in [...] Coronary artery disease needed for chest involving [place] coronary pain artery of [place] heart without angina pectoris omeprazole (PRILOSEC) 20 [...] Accompanied by: - Prachi Name/phone of [place] courtesy van driver: ... [phone] Medications held: off blood thinners (Eliquis) for [...] If the visitor has positive symptoms, notify supervisor poultry farm/manger Per policy, the visitor will need to leave the facility documented in this encounter Plan of Treatment Upcoming Encounters Date Type Specialty Care Team Description 08/16/2022 Ancillary Procedure Cardiology Timothy Smith MD [address] [place] [phone] (Wo rk) 08/16/2022 Office Visit Cardiology Timothy Smith MD [address] [place] [address] (Wo rk) documented as of this encounter [...] sutures. The pacemaker leads were removed the [employer] generator and were capped. A pocket was [...] Action ICD RESONATE EL VR DF4 - [id number] ICD ICD RESONATE EL VR DF4 [id number] [employer] [place] 574908 ??1 Implante d LEAD ??RELIANCE ENDOTAK DF4 AF 59 CM 027 2 - [id number] Leads LEAD ??RELIANCE ENDOTAK DF4 AF 59 CM 0272 [id number] [employer] [place] 495609 ??1 Implanted STIMULATION THRESHOLDS: RV - ??Sense:8.4 [...] Address City/State/ZIP [place] [address] [phone] [facility] [address] 1st floor, [...] Address City/State/ZIP [place] [address] [facility] [address] 1st floor, Room 20B EKG 12-lead, tracing only (07/04/2021 12:15 PM CDT) Component Value Ref Range Test Analysis Performed Pathologis t Method Time At Signature Systolic Blood mmHg RADIOLOGY Pressure RESULTS Diastolic Blood mmHg RADIOLOGY Pressure RESULTS Ventricular Rate 96 BPM RADIOLOGY RESULTS Atrial Rate 94 BPM RADIOLOGY RESULTS HI Interval ms RADIOLOGY RESULTS QRS Duration 140 ms RADIOLOGY RESULTS QT 418 ms RADIOLOGY RESULTS QTc 528 ms RADIOLOGY RESULTS P [place] degrees RADIOLOGY RESULTS R AXIS -79 degrees RADIOLOGY RESULTS T [place] 3 degrees RADIOLOGY RESULTS Interpretation Atrial fibrillation with premature ventricular beats RADIOLOGY ECG Left axis deviation RESULTS Right bundle branch block Inferior infarct , age undetermined Abnormal ECG When compared with ECG of 31-MAY-2018 13:40, Atrial fibrillation has replaced Sinus rhythm Confirmed by MD SAUNDRA, KAUR ([id number]), society editor TIMA CORONEL ([id number]) on 07/05/2021 6:24:46 PM Specimen Anatomical Collection [...] Heriberto Gaston RN) Routine, 3 g, Intravenous, PRE-OP/PRE-HI OCEDURE, Starting on Sun07/04/21 at 1200, For [...] grams documented in this encounter Care Teams Food Operations Manager Relationship Specialty Start Date End Date Graham Licona MD PCP - General Family Medicine 06/30/21 [facility] [address] [place] [address] Timothy Smith MD Assigned Heart and Vascular 07/23/20 [address] Provider [place] [address] documented as of this encounter
--- OUTSIDE RECORDS SUMMARY | 2022-07-26 10:51 | XMS_ITS | Encounter Summary ---
:1940 Author Organization [place] Address [address] [facility] [place] [place] [address] Care Team Providers Name Role Phone Timothy Smith MD Unavailable Graham Licona MD Primary Care Provider Reason for Visit Reason Onset Date Comments Implantable Devices 07/25/2021 Alert for [place] requiri ng ATP Encounter Details Date Type Department Care Team Description 07/25/2021 Telephone [facility] Sintia Muhammad, Impl antable Devices [facility] RN (Alert fo r [place] requiring Heart Care ATP) [address] [place] [phone] Social History Tobacco Use Types Packs/Day [...] clinic phone number provided. Pt is on TopCue XL. Dr. Smith was previously notified for [...] [address] [place] [address] (Wo rk) 08/16/2022 Office Visit Cardiology Timothy Smith MD [address] [place] [address] (Wo rk) documented as of this encounter Visit Diagnoses Not on filedocumented in this encounter Care Teams Radiologist Relationship Specialty Start Date End Date Graham Licona MD PCP - General Family Medicine 06/30/21 [facility] [address] [place] [address] Timothy Smith MD Assigned Heart and Vascular 07/23/20 [address] Provider [place] [address] documented as of this encounter
--- OUTSIDE RECORDS SUMMARY | 2022-07-26 10:51 | XMS_ITS | Encounter Summary ---
:1940 Author Organization [place] Address [address] [place] [address] Care Team Providers Name Role Phone Timothy Smith MD Unavailable Graham Licona MD Primary Care Provider Reason for Visit CV Testing (Routine) - Closed Specialty Diagnoses / Procedures Referred By Contact Refer red To Contact Diagnoses Cardiac pacemaker in situ Chris De Leon MD Procedures Cardiac Device Check - In Clinic (Post implant follow up) [address] [place] [address] Referral ID Status Reason Start Date Expiration Date Visits Requ ested Visits Authorized [id number] Closed 07/05/2021 07/05/2022 1 1 Encounter Details Date Type Department Care Team Description 07/14/2021 Ancillary Procedure [facility] Chris De Leon, Cardiac pacemaker in [facility] situ Heart Care [address] [facility] [address] [place] [address] [place] [address] [phone] Social History Tobacco Use Types Packs/Day Years [...] [address] [place] [address] (Wo rk) 08/16/2022 Office Visit Cardiology Timothy Smith MD [address] [place] [phone] (Wo rk) documented as of this encounter [...] Range Method Time At Signature Date Time [id number] [employer]IC Interrogation Session Implantable [employer]ONIC Pulse Generator Ring Spinner Implantable D432 RESONATE EL MEDTRONIC Pulse Generator ICD Model Implantable 823472 MEDTRONIC Pulse Generator Serial Number Type In Clinic [facility] Interrogation Session Clinic Name [place] [facility]IC Implantable Defibrillator MEDTRONIC Pulse Generator Type Implantable [id number] MEDTRONIC Pulse Generator Implant Date Implantable Lead [employer] Ring Spinner Implantable Lead 0272 [place] MEDTRONIC Model 4-Site S Implantable Lead 128355 MEDTRONIC Serial Number Implantable Lead [id number] MEDTRONIC Implant Date Implantable Lead Bipolar Lead [...] 0 MEDTRONIC Statistic Total ATP Delivered Therapy [id number] MEDTRONIC Statistic Total Date Time End Therapy 0 MEDTRONIC Statistic Recent Shocks Delivered Therapy 0 MEDTRONIC Statistic Recent Shocks Aborted Therapy 0 MEDTRONIC Statistic Recent ATP Delivered Therapy SunJul 04 MEDTRONIC Statistic Recent 11:45:37 CDT 2020 Date Time Start Therapy [id number] MEDTRONIC Statistic Recent Date Time End Episode 61 MEDTRONIC Statistic Total Count Episode VT MEDTRONIC Statistic Type Category Episode NSVT MEDTRONIC Statistic Vendor Type Category Episode 0 MEDTRONIC Statistic Total Count Episode VF MEDTRONIC Statistic Type Category Episode VF MEDTRONIC Statistic Vendor Type Category Episode 0 MEDTRONIC Statistic Total Count Episode VF_VT_MONITOR MEDTRONIC Statistic Type Category Episode [id number] MEDTRONIC Statistic Total Date Time End Episode [id number] MEDTRONIC Statistic Total Date Time End Episode [id number] MEDTRONIC Statistic Total Date Time End Episode [...] 11:45:37 CDT 2020 Date Time Start Episode [id number] MEDTRONIC Statistic Recent Date Time End Episode SunJul 04 [employer]TRONIC Statistic Recent 11:45:37 CDT 2020 Date Time Start Episode [id number] MEDTRONIC Statistic Recent Date Time End Episode SunJul 04 [employer]TRONIC Statistic Recent 11:45:37 CDT 2020 Date Time Start Episode [id number] [employer]TRONIC Statistic Recent Date Time End Anatomical Region Laterality Modality Other Specimen (Source) Anatomical Collection Method Collection Time Re ceived Time Location / / Volume Laterality 07/14/2021 11:37 AM CDT Narrative 07/18/2021 1:08 PM CDT [place] ??7 Day Post Upgrade to ICD and PPM removal Device Check Patient seen in clinic for device evalua tion and iterative programming. WAREHOUSE LOGISTICS COORDINATOR: 3 % ?? Mode: VVIR 50-130 ?? [...] situ documented in this encounter Care Teams Investigator Vice Relationship Specialty Start Date End Date Graham Licona MD PCP - General Family Medicine 06/30/21 [facility] [address] [place] [address] Timothy Smith MD Assigned Heart and Vascular 07/23/20 [address] Provider [place] [address] documented as of this encounter
--- OUTSIDE RECORDS SUMMARY | 2022-07-26 10:51 | XMS_ITS | Encounter Summary ---
:1940 Author Organization [place] Address [address] [facility] [place] [address] Care Team Providers Name Role Phone Timothy Smith MD Unavailable Graham Licona MD Primary Care Provider Encounter Details Date Type Department Care Team Description 07/05/2021 Telephone [facility] Keyshawn Myers RN [facility] [address] [place] [address] Social History Tobacco Use Types [...] device check scheduled: 07/14/21 at 11:00am in [place]. Pt states understanding of all instructions. documented in this encounter Plan of Treatment Upcoming Encounters Date Type Specialty Care Team Description 08/16/2022 Ancillary Procedure Cardiology Timothy Smith MD [address] [place] [address] (Wo rk) 08/16/2022 Office Visit Cardiology Timothy Smith MD [address] [place] [address] (Wo rk) documented as of this encounter Visit Diagnoses Not on filedocumented in this encounter Care Teams Gear Machine Operator General Relationship Specialty Start Date End Date Graham Licona MD PCP - General Family Medicine 06/30/21 [facility] [address] [place] [address] Timothy Smith MD Assigned Heart and Vascular 07/23/20 [address] Provider [place] [address] documented as of this encounter
--- OUTSIDE RECORDS SUMMARY | 2022-07-26 10:51 | XMS_ITS | Encounter Summary ---
:1940 Author Organization [place] Address [address] [place] [address] Care Team Providers Name Role Phone Timothy Smith MD Unavailable Graham Licona MD Primary Care Provider Encounter Details Date Type Department Care Team Description 07/01/2021 [facility] for screening for Hospital other viral diseases [address] [place] [address] Social History Tobacco Use [...] Procedure Cardiology Timothy Smith MD [address] [place] [id number] (Wo rk) 08/16/2022 Office Visit Cardiology Timothy Smith MD [address] [place] [id number] (Wo rk) documented as of this encounter [...] using the Aptima SARS-CoV-2 Assay on the Power2Switch Instrument System. Additional in formation about this [...] COVID-19. This test was validated by the [facility] Infectious Diseases Diagnostic [facility]. This lab oratory is certified under the Clinical Laboratory Improvement Amen dments of 1987 (CLIA-88) as qualified to perform high complexity lab oratory testing. Timothy Smith MD LAB - MICRO GENERAL ORDERABL ES Performing Organization Address City/State/ZIP Code Phon e Number [facility] [place] [phone] Diag. Lab [address] [facility], [address] [facility] Infectious [place], [place] [phone] Diseases Diagnostic [phone], [facility] Lab (IDDL) [address] [facility], [address]297 documented in this encounter Visit Diagnoses Diagnosis Encounter for screening for other viral diseases documented in this encounter Care Teams Geriatric Psychiatrist Relationship Specialty Start Date End Date Graham Licona MD PCP - General Family Medicine 06/30/21 [facility] [address] [place] [address] Timothy Smith MD Assigned Heart and Vascular 07/23/20 [address] Provider [place] [id number] documented as of this encounter
--- OUTSIDE RECORDS SUMMARY | 2022-07-26 10:51 | XMS_ITS | Encounter Summary ---
:1940 Author Organization [place] Address [address] [facility] [place] [address] Care Team Providers Name Role Phone Timothy Smith MD Unavailable Graham Licona MD Primary Care Provider Reason for Referral CV Testing (Routine) - Closed Specialty Diagnoses / Procedures Referred By Contact Refer red To Contact Diagnoses Cardiac pacemaker in situ Chris De Leon MD Procedures Cardiac Device Check - Remote (Post implant follow up) [address] [place] [address] Referral ID Status Reason Start Date Expiration Date Visits Requ ested Visits Authorized [id number] Closed 07/05/2021 07/05/2022 1 1 V Testing (Routine) - Closed Specialty Diagnoses / Procedures Referred By Contact Refer red To Contact Diagnoses Cardiac pacemaker in situ Chris De Leon MD Procedures Cardiac Device Check - In Clinic (Post implant follow up) [address] [place] [address] Referral ID Status Reason Start Date Expiration Date Visits Requ ested Visits Authorized [id number] Closed 07/05/2021 07/05/2022 1 1 Encounter Details Date Type Department Care Team Description 07/05/2021 [facility] Chris De Leon MD Cardiac pacemaker in [facility] [place] [address] situ (Primary Dx) [address] [facility] [address] [place] [address] [place] [phone] Social History Tobacco Use Types Packs/Day Years [...] [address] [place] [id number] (Wo rk) 08/16/2022 Office Visit Cardiology Timothy Smith MD [address] [place] [id number] (Wo rk) Scheduled Orders Name Type Priority [...] ICD UP TO 90 (11/24/2021 1:06 PM KINDERGARTEN AIDE) Component Value Ref Test Analysis Performed Pathologis t Range Method Time At Signature Date Time [id number] [employer] Interrogation Session Implantable [place] [employer] Pulse Generator Hand Potter Implantable D432 RESONATE EL [employer]IC Pulse Generator ICD Model Implantable [id number] [employer] Pulse Generator Serial Number Type Remote [facility]IC Interrogation Session Clinic Name [place] [facility] Implantable Defibrillator [employer] Pulse Generator Type Implantable [id number] [employer] Pulse Generator Implant Date Implantable Lead [place] [employer] Hand Potter Implantable Lead [address] [place] [employer] Model 4-Site S Implantable Lead 824186 [employer] Serial Number Implantable Lead [id number] [employer]ONIC Implant Date Implantable Lead Bipolar Lead [...] Capacitor Charge Reformation [employer]ONIC Type Capacitor Last [id number] [employer] Charge Date Time Capacitor Charge 9.1 s MEDTRONIC Time Brandon Statistic MEDTRONIC Date Time Start Brandon Statistic MEDTRONIC Date Time End Brandon Statistic 3 % MEDTRONIC RV Percent Paced Therapy 0 [employer]TRONIC Statistic Recent Shocks Delivered Therapy 0 [employer]TRONIC Statistic Recent Shocks Aborted Therapy 0 MEDTRONIC Statistic Recent ATP Delivered Therapy [id number] [employer]IC Statistic Recent Date Time Start Therapy [id number] [employer] Statistic Recent Date Time End Therapy 0 MEDTRONIC Statistic Total Shocks Delivered Therapy 0 MEDTRONIC Statistic Total Shocks Aborted Therapy 8 [employer]TRONIC Statistic Total ATP Delivered Therapy [id number] [employer] Statistic Total Date Time End Episode [...] VT-1 MEDTRONIC Statistic Vendor Type Category Episode [id number] [employer]TR[employer]IC Statistic Recent Date Time Start Episode MEDTRONIC Statistic Recent Date Time End Episode [id number] [employer]TR[employer]IC Statistic Recent Date Time Start Episode MEDTRONIC Statistic Recent Date Time End Episode [id number] [employer]TR[employer]IC Statistic Recent Date Time Start Episode MEDTRONIC Statistic Recent Date Time End Episode [id number] [employer]TRONIC Statistic Recent Date Time Start Episode [id number] [employer]TR[employer]IC Statistic Recent Date Time End Episode [id number] [employer]TR[employer]IC Statistic Recent Date Time Start Episode [id number] [employer]IC Statistic Recent Date Time End Episode APM-55 [employer]IC Identifier Episode Type Periodic EGM [employer]TRONIC Category Episode Date MEDTRONIC Time Episode RVAT-160 [employer] Identifier Episode Type Other MEDTRONIC Category Episode Date MEDTRONIC Time Anatomical Region Laterality Modality Other Specimen (Source) Anatomical Collection Method Collection Time Re ceived Time Location / / Volume Laterality 11/23/2021 12:40 AM KINDERGARTEN AIDE Narrative 12/04/2021 10:04 AM KINDERGARTEN AIDE [place] [employer] Resonate (S) ICD Remote Device Check DEPENDENCY COUNSELOR: 3 % ?? Mode: VVIR 50-130 ?? [...] EVAL, DUAL LEAD ICD (08/24/2021 11:02 AM KINDERGARTEN AIDE) Component Value Ref Test Analysis Performed Pathologis t Range Method Time At Signature Date Time [employer] Interrogation Session Implantable [place] [employer] Pulse Generator Hand Potter Implantable D432 RESONATE EL [employer]IC Pulse Generator ICD Model Implantable 505592 [employer] Pulse Generator Serial Number Type In Clinic [facility] Interrogation Session Clinic Name [place] [facility] Implantable Defibrillator [employer]TRONIC Pulse Generator Type Implantable [id number] [employer] Pulse Generator Implant Date Implantable Lead [place] [employer] Hand Potter Implantable Lead [address] [place] [employer]TR[employer]IC Model 4-Site S Implantable Lead 394216 [employer]IC Serial Number Implantable Lead [id number] MEDTRONIC Implant Date Implantable Lead Bipolar Lead [...] MEDTRONIC Pacing Threshold Pulse Width Battery Date [id number] [employer]IC Time of Measurements Battery Status Beginning of [employer]TRONIC Service Battery 174 mo [employer]TR[employer]IC Remaining Longevity Battery 100 % [employer]TR[employer]IC Remaining Percentage Capacitor Charge Reformation [employer]TR[employer]IC Type Capacitor Last [id number] [employer]IC Charge Date Time Capacitor Charge 9.1 s MEDTRONIC Time Brandon Statistic [id number] [employer]TRONIC Date Time Start Brandon Statistic MEDTRONIC Date Time End Brandon Statistic 4 % MEDTRONIC RV Percent Paced Therapy 0 MEDTRONIC Statistic Recent Shocks Delivered Therapy 0 MEDTRONIC Statistic Recent Shocks Aborted Therapy 8 MEDTRONIC Statistic Recent ATP Delivered Therapy [id number] MEDTRONIC Statistic Recent Date Time Start Therapy [id number] MEDTRONIC Statistic Recent Date Time End Therapy 0 MEDTRONIC Statistic Total Shocks Delivered Therapy 0 MEDTRONIC Statistic Total Shocks Aborted Therapy 8 MEDTRONIC Statistic Total ATP Delivered Therapy [id number] [employer]TRONIC Statistic Total Date Time End Episode [...] VT-1 MEDTRONIC Statistic Vendor Type Category Episode [id number] [employer]TRONIC Statistic Recent Date Time Start Episode [id number] [employer]TRONIC Statistic Recent Date Time End Episode [id number] MEDTRONIC Statistic Recent Date Time Start Episode [id number] [employer]TRONIC Statistic Recent Date Time End Episode [id number] [employer]TRONIC Statistic Recent Date Time Start Episode [id number] [employer]TRONIC Statistic Recent Date Time End Episode [id number] [employer]TR[employer]IC Statistic Recent Date Time Start Episode [id number] [employer]TRONIC Statistic Recent Date Time End Episode [id number] MEDTRONIC Statistic Recent Date Time Start Episode [id number] [employer]TRONIC Statistic Recent Date Time End Episode APM-11 [facility]TR[employer]IC Identifier Episode Type Periodic EGM [facility]TRONIC Category Episode Date [id number] [employer]ON[employer] Time Anatomical Region Laterality Modality Other Specimen (Source) Anatomical Collection Method Collection Time Re ceived Time Location / / Volume Laterality 08/24/2021 11:09 AM KINDERGARTEN AIDE Narrative 09/06/2021 1:31 PM KINDERGARTEN AIDE [place] [employer] Resonate (S) ICD Device Check Patient seen in clinic for device evalua tion and iterative programming. ?? DEPENDENCY COUNSELOR: 4% ?? Mode: VVIR 50-130 ?? Underlying [...] with V ra barbara of 200-210 for 9wjm6dlr and 4uia4egb. Both episodes received ATPx6 a nd was successful after the 6th attempt. VT episode on 08/01/21 at 0923 E GM shows VT for 6xvf82ikr with V rates of 180-210bpm, ATPx7 was delivered and was successful after the 7th ATP attempt. The other episode of VT occ urred on 07/23/21 at 0832 EGM shows 2fpg1qro of VT with V rates of 200 [...] Signature Date Time [employer]TRONIC Interrogation Session Implantable [place] [employer] Pulse Generator Hand Potter Implantable D432 RESONATE EL [employer]TRONIC Pulse Generator ICD Model Implantable 745183 [employer]TRONIC Pulse Generator Serial Number Type In Clinic [facility]IC Interrogation Session Clinic Name [place] [facility]IC Implantable Defibrillator MEDTRONIC Pulse Generator Type Implantable [id number] MEDTRONIC Pulse Generator Implant Date Implantable Lead [place] [employer] Hand Potter Implantable Lead [address] [place] [employer]TRONIC Model 4-Site S Implantable Lead 004345 [employer]IC Serial Number Implantable Lead [id number] MEDTRONIC [...] 11:45:37 CDT 2020 Date Time Start Therapy [id number] [employer]TRONIC Statistic Recent Date Time End Episode 61 MEDTRONIC Statistic Total Count Episode VT MEDTRONIC Statistic Type Category Episode NSVT MEDTRONIC Statistic Vendor Type Category Episode 0 MEDTRONIC Statistic Total Count Episode VF MEDTRONIC Statistic Type Category Episode VF MEDTRONIC Statistic Vendor Type Category Episode 0 MEDTRONIC Statistic Total Count Episode VF_VT_MONITOR MEDTRONIC Statistic Type Category Episode [id number] MEDTRONIC Statistic Total Date Time End Episode [id number] MEDTRONIC Statistic Total Date Time End Episode [id number] MEDTRONIC Statistic Total Date Time End Episode [...] 11:45:37 CDT 2020 Date Time Start Episode [id number] [employer]IC Statistic Recent Date Time End Episode SunJul 04 [employer]TRONIC Statistic Recent 11:45:37 CDT 2020 Date Time Start Episode [id number] [employer]TRONIC Statistic Recent Date Time End Episode SunJul 04 [employer]IC Statistic Recent 11:45:37 CDT 2020 Date Time Start Episode [id number] [employer]IC Statistic Recent Date Time End Anatomical Region Laterality Modality Other Specimen (Source) Anatomical Collection Method Collection Time Re ceived Time Location / / Volume Laterality 07/14/2021 11:37 AM CDT Narrative 07/18/2021 1:08 PM CDT [place] ??7 Day Post Upgrade to ICD and PPM removal Device Check Patient seen in clinic for device evalua tion and iterative programming. DEPENDENCY COUNSELOR: 3 % ?? Mode: VVIR 50-130 ?? [...] situ documented in this encounter Care Teams Mainstreaming Facilitator Relationship Specialty Start Date End Date Graham Licona MD PCP - General Family Medicine 06/30/21 [facility] [address] [place] [address] Timothy Smith MD Assigned Heart and Vascular 07/23/[address] Provider [place] [address] documented as of this encounter
--- OUTSIDE RECORDS SUMMARY | 2022-07-26 10:51 | XMS_ITS | Encounter Summary ---
:1940 Author Organization [place] Address [address] [facility] [place] [address] Care Team Providers Name Role Phone Timothy Smith MD Unavailable Graham Licona MD Primary Care Provider Reason for Visit Auth/Cert Specialty Diagnoses / Procedures Referred By Contact Refer red To Contact Med Surg Diagnoses Sustained VT (ventricular tachycardia) Cardiac pacemaker in situ VT Care Suites Procedures HC ICD IMPLANT, SINGLE / DUAL W LEAD INSERTION/REPOSITIONING Implantable Cardioverter-Defibrillator (ICD) [address] [place] [place] [phone] Phone: Referral ID Status Reason Start Date Expiration Date Visits Requ ested Visits Authorized [id number] 1 1 Encounter Details Date Type Department Care Team Description 07/04/2021 Surgery [facility] Kaur De Leon MD [facility] [address] Card ioverter-Defibrillat Heart Care [address] or (ICD) [address] [place] [address] [place] [address] [phone] Surgery Details Date/Time Status Location OR Service Patient Class Case Case Trauma Class Type Case? 07/04/21 2:00 Posted HEART Cath Cardiology Outpatient PM CARDIAC Lab 4 BUSINESS ANALYTICS FACULTY MEMBER Panel 1 Procedure [facility] Anes Op Region [...] If you need to change it, use 4z8-essi gauze and a large clear bandage. ??? [...] 10 minutes. ??? Once bleeding stops, call [facility] Heart Clinic as soon as you can. Call 911 right away if you have heavy bleeding or bleeding that does not stop. Medicines: ??? Take your medications, including blood thinners, unless your provider tells you not to. ??? If you have stopped any medicines, check with your provider about when to restart them. Follow Up Appointments: ??? Follow up with Device Clinic at [facility] Heart Clinic of patient preference in 7- [...] Device Safety: ??? Please refer to device voltage inspector???s booklet for further information. [facility] [place]: [phone] [facility] (7 days a week) documented in this [...] Coronary artery disease needed for chest involving mary's igloo coronary pain artery of mary's igloo heart without angina pectoris omeprazole (PRILOSEC) 20 [...] Accompanied by: - Prachi Name/phone of DC cdl team truck driver: ... [phone] Medications held: off blood thinners (Eliquis) for [...] If the visitor has positive symptoms, notify sulfuric acid plant supervisor/manger Per policy, the visitor will need to leave the facility documented in this encounter Plan of Treatment Upcoming Encounters Date Type Specialty Care Team Description 08/16/2022 Ancillary Procedure Cardiology Timothy Smith MD [address] [place] [id number] (Wo rk) 08/16/2022 Office Visit Cardiology Timothy Smith MD [address] [place] [id number] (Wo rk) documented as of this encounter [...] The pacemaker leads were removed the pac [employer] generator and were capped. A pocket was [...] Action ICD RESONATE EL VR DF4 - [id number] ICD ICD RESONATE EL VR DF4 340378 [place] [employer] 136281 ??1 Implante d LEAD ??RELIANCE ENDOTAK DF4 AF 59 CM 027 2 - [id number] Leads LEAD ??RELIANCE ENDOTAK DF4 AF 59 CM 0272 302512 [place] [employer] [place] 700356 ??1 Implanted STIMULATION THRESHOLDS: RV - ??Sense:8.4 [...] Address City/State/ZIP Code Phon e Number [place] [address] [facility] Lab [address] [...] Address City/State/ZIP Code [place] [address] [phone] Care Lab [address] STrae 1st [...] RESULTS QTc 528 ms RADIOLOGY RESULTS P [place] degrees RADIOLOGY RESULTS R AXIS -79 degrees RADIOLOGY RESULTS T [place] 3 degrees RADIOLOGY RESULTS Interpretation Atrial fibrillation with premature ventricular beats RADIOLOGY ECG Left axis deviation RESULTS Right bundle branch block Inferior infarct , age undetermined Abnormal ECG When compared with ECG of 31-MAY-2018 13:40, Atrial fibrillation has replaced Sinus rhythm Confirmed by MD SAUNDRA, KAUR (1984), metropolitan editor TIMA CORONEL ([id number]) on 07/05/2021 6:24:46 PM Specimen Anatomical Collection [...] grams documented in this encounter Care Teams Insurance Verify Rep Relationship Specialty Start Date End Date Graham Licona MD PCP - General Family Medicine 06/30/21 [facility] [address] [place] [address] Timothy Smith MD Assigned Heart and Vascular 07/23/[address] Provider [place] [address] documented as of this encounter
--- OUTSIDE RECORDS SUMMARY | 2022-07-26 10:51 | XMS_ITS | Encounter Summary ---
:1940 Author Organization [place] Address [address] [place] [address] Care Team Providers Name Role Phone Slava Hernandez PA-C Primary Care Provider Timothy Smith MD Unavailable Reason for Referral (Routine) - Closed Specialty Diagnoses / Procedures Referred By Contact Refer red To Contact Diagnoses Sustained VT (ventricular tachycardia) Cardiac pacemaker in situ [facility] Procedures Case Request EP: Implantable Cardioverter-Defibrillator (ICD) [address] [address] [place] [address] Referral ID Status Reason Start Date Expiration Date Visits Requ ested Visits Authorized [id number] Closed 06/23/2021 06/23/2022 1 1 onsultation (Routine) - Closed Specialty Diagnoses / Procedures Referred By Contact Refer red To Contact Diagnoses Sustained VT (ventricular tachycardia) Cardiac pacemaker in situ [facility] [address] [address] [place] [address] Referral ID Status Reason Start Date Expiration Date Visits Requ ested Visits Authorized [id number] Closed 06/23/2021 06/23/2022 1 1 Reason for Visit Reason Onset Date Comments Implantable Devices 06/23/2021 Encounter Details Date Type Department Care Team Description 06/23/2021 Telephone [facility] Sandrine Whitman Implantable Devices [facility] [id number] [facility] [address] [place] [address] Social History Tobacco Use Types [...] [address] [place] [address] (Wo rk) 08/16/2022 Office Visit Cardiology Timothy Smith MD [address] [place] [address] (Wo rk) Scheduled Referrals Name Type Priority Associated Order Schedule Diagnoses Follow-Up with Referral Routine: Next Sustained VT Expected: Bin Filler available opening (ventricular tachycardia) (H) (Approximate), Cardiac pacemaker Expires: in situ 06/23/2022 documented as of this encounter Visit Diagnoses Diagnosis Sustained VT (ventricular tachycardia) - Primary Paroxysmal ventricular tachycardia Cardiac pacemaker in situ documented in this encounter Care Teams Teletype Or [place] Keyboard Operator Relationship Specialty Start Date End Date Slava Hernandez, PCP - General Physician Shank Sorter 07/[birth year]06/02 PA-C [facility] [address] [place] [address] Timothy Smith MD Assigned Heart and 07/23/[address] Vascular Provider [address] [place] [address] documented as of this encounter
--- OUTSIDE RECORDS SUMMARY | 2022-07-26 10:51 | XMS_ITS | Encounter Summary ---
:1940 Author Organization [place] Address [address] [facility] [place] [address] Care Team Providers Name Role Phone Timothy Smith MD Unavailable Graham Licona MD Primary Care Provider Reason for Visit Reason Onset Date Comments Implantable Devices 08/02/2021 Encounter Details Date Type Department Care Team Description 08/02/2021 Telephone [facility] Sandrine Whitman Implantable Devices [facility] [address] [place] [phone] Social History Tobacco Use Types Packs/Day [...] 08/01/2021 at 0923. EGM shows VT lasting 3yab19xda with V rates [id number]. ATPx7 was delivered with rhythm breaking after [...] [address] [place] [id number] (Fiorella olvera) 08/16/2022 Office Visit Cardiology Timothy Smith MD [address] [place] [id number] (Fiorella olvera) documented as of this encounter Visit Diagnoses Not on filedocumented in this encounter Care Teams Calender Inspector Relationship Specialty Start Date End Date Graham Licona MD PCP - General Family Medicine 06/30/21 [facility] [address] [place] [address] Timothy Smith MD Assigned Heart and Vascular 07/23/20 [address] [facility] [address] Provider [place] [address] documented as of this encounter
--- OUTSIDE RECORDS SUMMARY | 2022-07-26 10:51 | XMS_ITS | Encounter Summary ---
:1940 Author Organization [place] Address [address] [facility] [place] [address] Care Team Providers Name Role Phone Timothy Smith MD Unavailable Graham Licona MD Primary Care Provider Reason for Visit Reason Comments H & P For ICD upgrade Consultation (Routine) - Closed Specialty Diagnoses / Procedures Referred By Contact Refer red To Contact Diagnoses Sustained VT (ventricular tachycardia) Cardiac pacemaker in situ [facility] [address] [facility] [address] [place] [phone] Referral ID Status Reason Start Date Expiration Date Visits Requ ested Visits Authorized [id number] Closed 06/23/2021 06/23/2022 1 1 Encounter Details Date Type Department Care Team Description 06/30/2021 Office Visit [facility] Tammy Montenegro [place] (ventricular tachycardia) (H); Heart Clinic Patt Torres PA-C Cardiac pacemaker in situ; [address] [facility] Type 2 diabetes mellitus with complication (H); [address] Persistent atrial fibrillation (H) [place] [phone] [place] [phone] (Wo rk) Social History Tobacco Use Types [...] today! 1. Reviewed your recent hospitalization at [place]. I'll look into this more and let [...] 8 AM, thennothing to eat/drink after 0800. [phone] documented in this encounter Progress Notes Tammy Montenegro PA-C - 06/30/2021 7:30 AM CDT [facility] I had the pleasure of [...] (diabetes, CAD, age) 5. 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 He did not ever have an AV node ablation. 6. 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 We believe he had a VG -OM, VG-RCA, VG-LAD and VG-D at that time. Angiogram01/2016 showed patent VGs! 7. 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 8. Obstructive sleep apnea, type 2 diabetes, obesity 9. Recent GI bleed/bleeding ulcer - admitted [facility] 06/04-03/2021. Two units pRBCs given. [...] me that he was recently admitted to [facility] d/t dark tarry stools 06/02-01/2021 [...] pRBCs. We'll work on getting records from [facility]. No issues with palpitations. No dizziness, lightheadedness since the 2 that prompted him to agree toICD implantation this summer. No syncope/falls. No c/o CP. Thinks breathing is stable. He's not taking Celebrex anymore (since hospital discharge) and aches b/c of this, but not anything he wasn't expecting. ADDENDUM 06/30/2021 REVIEWED NOTES FROM [facility]. Pt admitted 06/03- 03/2021 for acute [...] RBBB Dino Sci PPM 05/2021, showed 30% DISTRIBUTOR OPERATOR in VVIR 60/130. 2 HVR with EGMs showing AFib/RVR to 35seconds Echocardiogram 03/2021 - EF 50-55%. Mod decreased RVSF. MARTA (mod). Mod MAC with trace MR. Trace TR with RVSP 36+RAP. RA pressure 8mmHg. Trivial aortic sclerosis with trace-mild AI. Root OK. asc ao mildly dilated 3.7 cm Angiogram 01/2016 - patent bypass grafts Plan: Get [facility] records re: GI Bleed ICD [...] ICD therapy was provided today and reviewed [id number]. The main points addressed in the handout were further discussed today. All questions/concerns were addressed. After a good discussion, the patient verbalized understanding and has agreed to proceed with ICD implantation. ??? Gaines Decision Making Aid PLAN: ??? ICD upgrade [...] cephalexin x 7 days given early Jun @[facility]) 2. CAD ??? S/p 4 [...] BRBPR/melena PLAN: ??? Will work on getting [facility] documents ??? CBC will be [...] Other Topics Concern ??? Parent/sibling w/ CABG, AK or angioplasty before 65F 55M? No ??? [...] Gatherings with Friends and Family: ??? Attends Yarsani Services: ??? Active Member of Clubs or [...] [address] [place] [phone] (Wo wade) 08/16/2022 Office Visit Cardiology Timothy Smith MD [address] [place] [id number] (Wo rk) documented as of this encounter Visit Diagnoses Diagnosis Sustained VT (ventricular tachycardia) Paroxysmal ventricular tachycardia Cardiac pacemaker in situ Type 2 diabetes mellitus with complicati on (H) Persistent atrial fibrillation (H) Atrial fibrillation documented in this encounter Care Teams Director Of Exhibits Relationship Specialty Start Date End Date Graham Licona MD PCP - General Family Medicine 06/30/21 [facility] [address] [place] [address] Timothy Smith MD Assigned Heart and Vascular 07/23/20 [address] Provider [place] [id number] documented as of this encounter
--- OUTSIDE RECORDS SUMMARY | 2022-07-26 10:51 | XMS_ITS | Encounter Summary ---
:1940 Author Organization [place] Address [address] [facility] [place] [address] Care Team Providers Name Role Phone Slava Hernandez PA-C Primary Care Provider Timothy Smith MD Unavailable Encounter Details Date Type Department Care Team Description 06/29/2021 Orders Only [facility] Tony Reyes Sustai ned [facility] RN (ventricu lar Heart Care tachycardia) (H) [address] [facility] (Primary Dx) [facility] [address] [place] [phone] Social [...] [address] [place] [phone] (Wo rk) 08/16/2022 Office Visit Cardiology Timothy Smith MD [address] [place] [address] (Wo rk) documented as of this encounter Visit Diagnoses Diagnosis Sustained VT (ventricular tachycardia) - Primary Paroxysmal ventricular tachycardia documented in this encounter Care Teams Agent Based Modeler Relationship Specialty Start Date End Date Slava Hernandze, PCP - General Physician Wrap Knitting Machine Operator 07/02/1806/02 PA-C [facility] [address] [place], [place] [id number] Timothy Smith MD Assigned Heart and 07/23/20 [address] [facility] Provider [address] [place] [id number] documented as of this encounter
--- OUTSIDE RECORDS SUMMARY | 2022-07-26 10:51 | XMS_ITS | Encounter Summary ---
:1940 Author Organization [place] Address [address] [facility] [place] [address] Care Team Providers Name Role Phone Timothy Smith MD Unavailable Graham Licona MD Primary Care Provider Reason for Visit Reason Onset Date Comments Implantable Devices 08/24/2021 Encounter Details Date Type Department Care Team Description 08/24/2021 Telephone [facility] Sandrine Whitman Implantable Devices [facility] Heart Care [address] [place] [address] [address] [place] [address] Social History Tobacco Use Types Packs/Day Years Used Date Smoking Tobacco: Never Smokeless Tobacco: Never Alcohol Use Standard Drinks/Week Comments No 0 (1 standard drink = 0.6 oz pure alcoho l) Sex Assigned at Date Recorded Not on file COVID-19 Exposure Response Date Recorded In the last month, have you been in contact with No / Unsure 08/24/2021 10:48 AM CONTRACTS ADMINISTRATOR someone who was confirmed or suspected [...] bleed (dark tarry stools). Patient voiced understanding. RACTS ADMINISTRATOR Telephone Encounter - Aliza Whitman - 08/24/2021 [...] ?? Will route message to Dr Smith. RACTS ADMINISTRATOR documented in this encounter Plan of Treatment Upcoming Encounters Date Type Specialty Care Team Description 08/16/2022 Ancillary Procedure Cardiology Timothy Smith MD [address] [place] [id number] (Wo wade) 08/16/2022 Office Visit Cardiology Tiomthy Smith MD [address] [place] [address] (Wo rk) documented as of this encounter Visit Diagnoses Diagnosis Persistent atrial fibrillation (H) - [facility] jing Atrial fibrillation documented in this encounter Care Teams Hospital Pharmacist Relationship Specialty Start Date End Date Graham Licona MD PCP - General Family Medicine 06/30/21 [facility] [address] [place] [address] Timothy Smith MD Assigned Heart and Vascular 07/23/20 [address] Provider [place] [id number] documented as of this encounter
--- OUTSIDE RECORDS SUMMARY | 2022-07-26 10:51 | XMS_ITS | Encounter Summary ---
:1940 Author Organization [place] Address [address] [facility] [place] [address] Care Team Providers Name Role Phone Timothy Smith MD Unavailable Graham Licona MD Primary Care Provider Reason for Visit Reason Comments Clinic Care Coordination - Follow-up Encounter Details Date Type Department Care Team Description 06/30/2021 Documentation Only [facility] Tammy Montenegro Clinic Care Heart Clinic Patt Torres PA-C Coordination - [address] [facility] [address] [facility] [address] [place] [facility] [place] [phone] Social History Tobacco Use Types Packs/Day [...] let me know that he'd been at [facility] for GI bleed/ulcer~. He's been off [...] [address] [place] [phone] (Wo rk) 08/16/2022 Office Visit Cardiology Timothy Smith MD [address] [place] [phone] (Wo rk) documented as of this encounter Visit Diagnoses Not on filedocumented in this encounter Care Teams Vascular Tech Relationship Specialty Start Date End Date Graham Licona MD PCP - General Family Medicine 06/30/21 [facility] [address] [place] [address] Timothy Smith MD Assigned Heart and Vascular 07/23/[address] Provider [place] [address] documented as of this encounter
--- OUTSIDE RECORDS SUMMARY | 2022-07-26 10:51 | XMS_ITS | Encounter Summary ---
:1940 Author Organization [place] Address [address] [place] [address] Care Team Providers Name Role Phone Timothy Smith MD Unavailable Graham Licona MD Primary Care Provider Reason for Visit CV Testing (Routine) - Closed Specialty Diagnoses / Procedures Referred By Contact Refer red To Contact Diagnoses Cardiac pacemaker in situ Chris De Leon MD Procedures Cardiac Device Check - In Clinic (Post implant follow up) [address] [place] [id number] Referral ID Status Reason Start Date Expiration Date Visits Requ ested Visits Authorized [id number] Closed 07/05/2021 07/05/2022 1 1 Encounter Details Date Type Department Care Team Description 08/24/2021 Ancillary Procedure [facility] Chris De Leon, Cardiac pacemaker in [facility] situ Heart Care [address] [facility] [address] [place] [address] [place] [phone] Social History Tobacco Use Types Packs/Day Years Used Date Smoking Tobacco: Never Smokeless Tobacco: Never Alcohol Use Standard Drinks/Week Comments No 0 (1 standard drink = 0.6 oz pure alcoho l) Sex Assigned at Date Recorded Not on file COVID-19 Exposure Response Date Recorded In the last month, have you been in contact with No / Unsure 08/24/2021 10:48 AM ETL INFORMATICA DEVELOPER someone who was confirmed or suspected to have Coronavirus / COVID-19? documented as of this encounter Plan of Treatment Upcoming Encounters Date Type Specialty Care Team Description 08/16/2022 Ancillary Procedure Cardiology Timothy Smith MD [address] [place] [phone] (Wo rk) 08/16/2022 Office Visit Cardiology Timothy Smith MD [address] [place] [phone] (Wo rk) documented as of this encounter Procedures Procedure Name Priority Date/Time Associated Comments Diagnosis ICD DEVICE Routine 08/24/2021 11:02 Cardiac pacemaker Result s for this PROGRAMMING EVAL, AM ETL INFORMATICA DEVELOPER in situ procedure are in DUAL LEAD ICD the results section. documented in this encounter Results ICD DEVICE PROGRAMMING EVAL, DUAL LEAD ICD (08/24/2021 11:02 AM ETL INFORMATICA DEVELOPER) Component Value Ref Test Analysis Performed Pathologis t Range Method Time At Signature Date Time [id number] [employer] Interrogation Session Implantable [employer] Pulse Generator Rate And Cost Analyst Implantable D432 RESONATE EL [employer] Pulse Generator ICD Model Implantable [id number] [employer] Pulse Generator Serial Number Type In Clinic [facility] Interrogation Session Clinic Name [place] [employer] Implantable Defibrillator [employer] Pulse Generator Type Implantable [id number] [employer] Pulse Generator Implant Date Implantable Lead [employer] Rate And Cost Analyst Implantable Lead [address] [place] [employer] Model 4-Site S Implantable Lead [id number] [employer] Serial Number Implantable Lead [id number] [employer] Implant Date Implantable Lead Bipolar Lead [...] [employer] Pacing Threshold Pulse Width Battery Date [id number] [employer] Time of Measurements Battery Status Beginning of [employer] Service Battery 174 mo [employer] Remaining Longevity Battery 100 % [employer] Remaining Percentage Capacitor Charge Reformation [employer] Type Capacitor Last [id number] [employer] Charge Date Time Capacitor Charge 9.1 s [employer] Time Brandon Statistic [id number] [employer] Date Time Start Brandon Statistic [id number] [employer] Date Time End Brandon Statistic 4 % [employer] RV Percent Paced Therapy 0 [employer] Statistic Recent Shocks Delivered Therapy 0 [employer]TRONIC Statistic Recent Shocks Aborted Therapy 8 [employer]TRONIC Statistic Recent ATP Delivered Therapy [id number] [employer] Statistic Recent Date Time Start Therapy [id number] [employer] Statistic Recent Date Time End Therapy 0 [employer]IC Statistic Total Shocks Delivered Therapy 0 [employer]IC Statistic Total Shocks Aborted Therapy 8 [employer]IC Statistic Total ATP Delivered Therapy [id number] [employer] Statistic Total Date Time End Episode [...] VT-1 [employer]TR[employer] Statistic Vendor Type Category Episode [id number] [employer] Statistic Recent Date Time Start Episode [id number] [employer] Statistic Recent Date Time End Episode [id number] [employer] Statistic Recent Date Time Start Episode [id number] [employer]TR[employer]IC Statistic Recent Date Time End Episode [id number] [employer] Statistic Recent Date Time Start Episode [id number] [employer] Statistic Recent Date Time End Episode [id number] [employer] Statistic Recent Date Time Start Episode [id number] [employer] Statistic Recent Date Time End Episode [id number] [employer] Statistic Recent Date Time Start Episode [id number] [employer] Statistic Recent Date Time End Episode APM-11 [employer] Identifier Episode Type Periodic EGM [employer] Category Episode Date [id number] [employer] Time Anatomical Region Laterality Modality Other Specimen (Source) Anatomical Collection Method Collection Time Re ceived Time Location / / Volume Laterality 08/24/2021 11:09 AM ETL INFORMATICA DEVELOPER Narrative 09/06/2021 1:31 PM ETL INFORMATICA DEVELOPER [employer] Resonate (S) ICD Device Check Patient seen in clinic for device evalua tion and iterative programming. ?? INFORMATION SYSTEMS OPERATOR: 4% ?? Mode: VVIR 50-130 ?? Underlying [...] with V ra barbara of 200-210 for 5ypk9mcq and 9dvx0mgr. Both episodes received ATPx6 a nd was successful after the 6th attempt. VT episode on 08/01/21 at 0923 E GM shows VT for [id number] with V rates of 180-210bpm, ATPx7 was delivered and was successful after the 7th ATP attempt. The other episode of VT occ urred on 07/23/21 at 0832 EGM shows 3ybe6rdm of VT with V rates of 200 [...] situ documented in this encounter Care Teams Public Health Officer Relationship Specialty Start Date End Date Graham Licona MD PCP - General Family Medicine 06/30/21 [facility] [address] [place] [address] Timotyh Smith MD Assigned Heart and Vascular 07/23/20 [address] Provider [place] [address] documented as of this encounter
--- OUTSIDE RECORDS SUMMARY | 2022-07-26 10:51 | XMS_ITS | Encounter Summary ---
:1940 Author Organization [place] Address [address] [facility] [address] Care Team Providers Name Role Phone Timothy [...] [address] [place] [phone] (Wo rk) 08/16/2022 Office Visit Cardiology Timothy Smith MD [address] [place] [phone] (Wo rk) documented as of this encounter Visit Diagnoses Not on filedocumented in this encounter Care Teams Refrigerator Crater Relationship Specialty Start Date End Date Graham Licona MD PCP - General Family Medicine 06/30/21 [facility] [address] [place] [address] Timothy Smith MD Assigned Heart and Vascular 07/23/20 [address] Provider [place] [address] documented as of this encounter
--- OUTSIDE RECORDS SUMMARY | 2022-07-26 10:51 | XMS_ITS | Encounter Summary ---
:1940 Author Organization [place] Address [address] [place] [address] Care Team Providers Name Role Phone Timothy Smith MD Unavailable Graham Licona MD Primary Care Provider Encounter Details Date Type Department Care Team Description [facility] [address] [place] [address] Social History Tobacco Use Types [...] encounter Miscellaneous Notes Telephone Encounter - Tony Reeys RN - 08/05/2021 9:55 AM CDT Remote ICD alert for ATP delivered. Since 08/02/2021 patient has had the following episodes logged. - 8 NSVT episodes logged. 2 EGMs available show 18-23 beats NSVT in the 190-200s. - 2 VT episodes logged on 08/04/2021 occurring consecutively at 12:02 and 12:04. EGM shows VT [id number] and 1m9s with V-rates in the 200-210s. [...] [address] [place] [phone] (Wo wade) 08/16/2022 Office Visit Cardiology Timothy Smith MD [address] [place] [address] (Wo rk) documented as of this encounter Visit Diagnoses Not on filedocumented in this encounter Care Teams Decoration Checker Relationship Specialty Start Date End Date Graham Licona MD PCP - General Family Medicine 06/30/21 [facility] [address] [place] [address] Timothy Smith MD Assigned Heart and Vascular 07/23/20 [address] Provider [place] [address] documented as of this encounter
--- OUTSIDE RECORDS SUMMARY | 2022-07-26 10:51 | XMS_ITS | Encounter Summary ---
:1940 Author Organization [place] Address [address] [facility] [place] [address] Care Team Providers Name Role Phone Timothy Smith MD Unavailable Graham Licona MD Primary Care Provider Encounter Details Date Type Department Care Team Description 07/14/2021 Documentation Only [facility] Heart Trung, S ananda C, Clinic [place] SANTANA [address] [facility] [address] [facility] [address] [place] [address] [place] [phone] (Wo rk) Social History Tobacco Use Types [...] [address] [place] [phone] (Wo rk) 08/16/2022 Office Visit Cardiology Timothy Smith MD [address] [place] [phone] (Wo rk) documented as of this encounter Visit Diagnoses Not on filedocumented in this encounter Care Teams Clam Shovel Operator Relationship Specialty Start Date End Date Graham Licona MD PCP - General Family Medicine 06/30/21 [facility] [address] [place] [address] Timothy Smith MD Assigned Heart and Vascular 07/23/20 [address] Provider [place] [address] documented as of this encounter
--- OUTSIDE RECORDS SUMMARY | 2022-07-26 10:51 | XMS_ITS | Encounter Summary ---
:1940 Author Organization [place] Address [address] [facility] 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 documented as of this encounter Plan of Treatment Upcoming Encounters Date Type Specialty Care Team Description 08/16/2022 Ancillary Procedure Cardiology Timothy Smith MD [address] [place] [phone] (Wo rk) 08/16/2022 Office Visit Cardiology Timothy Smith MD [address] [place] [phone] (Wo rk) documented as of this encounter Visit Diagnoses Not on filedocumented in this encounter Care Teams Screen Room Operator Relationship Specialty Start Date End Date Graham Licona MD PCP - General Family Medicine 06/30/21 [facility] [address] [place] [address] Timothy Smith MD Assigned Heart and Vascular 07/23/20 [address] Provider [place] [address] documented as of this encounter
--- OUTSIDE RECORDS SUMMARY | 2022-07-26 10:52 | XMS_ITS | Encounter Summary ---
:1940 Author Organization [place] Address [address] [facility] [place] [address] Care Team Providers Name Role Phone Slava Hernandez PA-C Primary Care Provider Timothy Smith MD Unavailable Reason for Referral (Routine) - Closed Specialty Diagnoses / Procedures Referred By Contact Refer red To Contact Diagnoses Sustained VT (ventricular tachycardia) Timothy Smith MD [address] [place] [address] Referral ID Status Reason Start Date Expiration Date Visits Requ ested Visits Authorized [id number] Closed 03/23/2021 03/23/2022 1 1 V Testing (Routine) - Closed Specialty Diagnoses / Procedures Referred By Contact Refer red To Contact Cardiology Diagnoses Sustained VT (ventricular tachycardia) Timothy Smith MD Cv Cardiac Svc Rscc Procedures Holter Monitor 24 hour Adult Pediatric ZZC AMB BP MONITORING W/SW >=24 HR, RECORD/SCAN/INTRP/RPT ZZHC HOLTER RECORDING 24 HRS ZZHC HOLTER SCAN 24 HRS MO HOLTER RECORDING 24 HRS MO HOLTER SCAN [address] [address] [employer] [place] AMB BP MONITORING W/SW >= 24 HR, RECORD/SCAN/INTRP/RPT HC HOLTER RECORDING 24 HRS HC HOLTER SCAN 24 HRS, ANALYSIS WITH REPORT [place] [address] [address] [place] [address] Phone: Fax: Referral ID Status Reason Start Date Expiration Date Visits Requ ested Visits Authorized [id number] Closed 03/23/2021 03/23/2022 1 1 Reason for Visit Reason Comments FU Cardiac testing review echo, discuss upgrade - ekg done (Routine) - Closed Specialty Diagnoses / Procedures Referred By Contact Refer red To Contact Diagnoses Sustained VT (ventricular tachycardia) [facility] [address] [facility] [address] [place] [address] Referral ID Status Reason Start Date Expiration Date Visits Requ ested Visits Authorized [id number] Closed 02/17/2021 02/17/2022 1 1 Encounter Details Date Type Department Care Team Description 03/23/2021 Office Visit [facility] Timothy Smith MD Sustained VT (ventricular tachycardia) ( H); [facility] [place] [address] Persistent atrial fibrillati on (H) [address] [facility] [address] [facility] [address] [place] [address] [place] [address] Social History Tobacco Use [...] upgrade. Timothy Smith MD cc: HANK [facility] [address] [place], [address] Timothy Smith MD MT: patito Name: RADHA VILLA MRN: [id number] Account: [id number] : 1940 Service Date: 03/23/2021 Document: [id number] Mary Post CMA - 03/23/2021 1:45 PM CDT A decision aid for implantable cardioverter-defibrillatiors (ICD) given to patient at office visit to review before seeing provider. Timothy Smith MD - 03/23/2021 1:45 PM CDT HPI and Plan: See dictation Orders Placed This Encounter Procedures ??? 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 EKG 12-lead complete w/read (Future)- to [...] Other Topics Concern ??? Parent/sibling w/ CABG, IA or angioplasty before 65F 55M? No ??? [...] MD [address] [place] [address] documented in this encounter Plan of Treatment Upcoming Encounters Date Type Specialty Care Team Description 08/16/2022 Ancillary Procedure Cardiology Timothy Smith MD [address] [place] [id number] (Wo wade) 08/16/2022 Office Visit Cardiology Timothy Smith MD [address] [place] [id number] (Wo rk) Scheduled Referrals Name Type Priority Associated Diagnoses Order S chedule Follow-Up with Referral Routine Sustained VT Expected: Fixed Wing Aircraft Crew Chief (ventricular 04/22/20 21 tachycardia) (H) (Approximat e), [...] fibrillation documented in this encounter Care Teams Ship Scaler Relationship Specialty Start Date End Date Slava Hernandez, PCP - General Physician Senior Manager Creative Services 07/02/1806/02 PA-C [facility] [address] [place] [address] Timothy Smith MD Assigned Heart and 07/23/20 [address] Vascular Provider [address] [place] [address] documented as of this encounter
--- OUTSIDE RECORDS SUMMARY | 2022-07-26 10:52 | XMS_ITS | Encounter Summary ---
:1940 Author Organization [place] Address [facility] [place] [address] Care Team Providers Name Role Phone Slava [...] [address] [place] [address] (Wo rk) 08/16/2022 Office Visit Cardiology Timothy Smith MD [address] [place] [phone] (Wo rk) documented as of this encounter Visit Diagnoses Not on filedocumented in this encounter Care Teams Public Works Commissioner Relationship Specialty Start Date End Date Slava Hernandez, PCP - General Physician Pari Mutuel Ticket Seller 07/02/1806/02 HANK[facility] [address] [facility] [place] [address] Timothy Smith MD Assigned Heart and 07/23/20 [address] Vascular Provider [address] [place] [address] documented as of this encounter
--- OUTSIDE RECORDS SUMMARY | 2022-07-26 10:52 | XMS_ITS | Encounter Summary ---
:1940 Author Organization [place] Address [facility] [place] [address] Care Team Providers Name Role Phone Slava [...] [address] [place] [address] (Wo rk) 08/16/2022 Office Visit Cardiology Timothy Smith MD [address] [place] [phone] (Wo rk) documented as of this encounter Visit Diagnoses Not on filedocumented in this encounter Care Teams Research Program Coordinator Relationship Specialty Start Date End Date Slava Hernandez, PCP - General Physician Tractor Mechanic Helper 07/02/1806/02 [facility] [address] [facility] [place] [address] Timothy Smith MD Assigned Heart and 07/23/20 [address] Vascular Provider [address] [place] [address] documented as of this encounter
--- OUTSIDE RECORDS SUMMARY | 2022-07-26 10:52 | XMS_ITS | Encounter Summary ---
:1940 Author Organization [place] Address [address] [facility] [place] [address] Care Team Providers Name Role Phone Slava [...] 24 HRS ZZHC HOLTER SCAN 24 HRS IA HOLTER RECORDING 24 HRS IA HOLTER SCAN 24 HRS [address] [address] [employer] [place] AMB BP MONITORING W/SW >= 24 HR, RECORD/SCAN/INTRP/RPT HC HOLTER RECORDING 24 HRS HC HOLTER SCAN 24 HRS, ANALYSIS WITH REPORT [place]BBINS [address] [address] [place] [address] Phone: Fax: Referral ID Status Reason Start Date Expiration Date Visits Requ ested Visits Authorized [id number] Closed 03/23/2021 03/23/2022 1 1 Reason for Visit CV Testing (Routine) - Closed Specialty Diagnoses / Procedures Referred By Contact Refer red To Contact Cardiology Diagnoses Sustained VT (ventricular tachycardia) Timothy Smith MD Rh Cv Cardiac Svc Rscc Procedures Holter Monitor 24 hour Adult Pediatric ZZC AMB BP MONITORING W/SW >=24 HR, RECORD/SCAN/INTRP/RPT ZZHC HOLTER RECORDING 24 HRS ZZHC HOLTER SCAN 24 HRS IA HOLTER RECORDING 24 HRS IA HOLTER SCAN [address] [address] [employer] [place] AMB BP MONITORING W/SW >= 24 HR, RECORD/SCAN/INTRP/RPT HC HOLTER RECORDING 24 HRS HC HOLTER SCAN 24 HRS, ANALYSIS WITH REPORT [place]BB[place] [address] [address] [place] [address] Phone: Fax: Referral ID Status Reason Start Date Expiration Date Visits Requ ested Visits Authorized [id number] Closed 03/23/2021 03/23/2022 1 1 Encounter Details Date Type Department Care Team Description 03/30/[address] [facility] Timothy Smith MD Sustained VT [facility] [address] (ventricu lar Heart Care S [address] tachycardia) (H) [address] [employer] [place] [address] [address] [address] [place], [place] (Work) [address] Social History Tobacco Use [...] Coronary artery disease minutes as needed involving mentasta coronary for chest pain artery of mentasta heart without angina pectoris apixaban ANTICOAGULANT Take [...] MD [address] [place] [address] (Wo rk) 08/16/2022 Office Visit Cardiology Timothy Smith MD [address] [place] [address] (Wo rk) documented as of this encounter [...] tachycardia documented in this encounter Care Teams Contractor Field Hauling Relationship Specialty Start Date End Date Slava Hernandez, PCP - General Physician Sound Effects Technician 07/02/1806/02 PA-C [facility] [address] [place] [address] Timothy Smith MD Assigned Heart and 07/23/20 [address] Vascular Provider [address] [place] [phone] documented as of this encounter
--- OUTSIDE RECORDS SUMMARY | 2022-07-26 10:52 | XMS_ITS | Encounter Summary ---
:1940 Author Organization [place] Address [address] [facility] [place] [address] Care Team Providers Name Role Phone Slava Hernandez PA-C Primary Care Provider Timothy Smith MD Unavailable Encounter Details Date Type Department Care Team Description 04/26/2021 Orders Only [facility] Timothy Smith MD Encounter for [facility] [place] [address] screening for other [address] viral diseases [facility] [address] [place] [address] [place] [phone] Social History Tobacco Use Types Packs/Day Years [...] [address] [place] [phone] (Wo rk) 08/16/2022 Office Visit Cardiology Timothy Smith MD [address] [place] [phone] (Wo rk) documented as of this encounter [...] using the Aptima SARS-CoV-2 Assay on the [employer] Instrument System. Additional in formation about this [...] COVID-19. This test was validated by the [facility] Infectious Diseases Diagnostic Laboratory. This lab oratory is certified under the Clinical Laboratory Improvement Amen dments of 1987 (CLIA-88) as qualified to perform high complexity lab oratory testing. Timothy Smith MD LAB - MICRO GENERAL ORDERABL ES Performing Organization Address City/State/ZIP Code Phon e Number [facility] [place] [address] Diag. Lab [address] [facility], Room [address]297 [facility] Infectious [place], [place] [phone] Diseases Diagnostic [phone], [facility] Lab (IDDL) [address] [facility], Room D297 documented in this encounter Visit Diagnoses Diagnosis Encounter for screening for other viral diseases documented in this encounter Care Teams Copy Clerk Relationship Specialty Start Date End Date Slava Hernandez, PCP - General Physician Aircraft Inspection Record Clerk 07/02/1806/02 PAIlanaC [facility] [address] [place] [address] Timothy Smith MD Assigned Heart and 07/23/20 [address] [facility] Vascular Provider [address] [place] [address] documented as of this encounter
--- OUTSIDE RECORDS SUMMARY | 2022-07-26 10:52 | XMS_ITS | Encounter Summary ---
:1940 Author Organization [place] Address [address] [place] [address] Care Team Providers Name Role Phone Slava Hernandez PA-C Primary Care Provider Ankur Smith MD Unavailable Reason for Referral (Routine) - Closed Specialty Diagnoses / Procedures Referred By Contact Refer red To Contact Diagnoses Sustained VT (ventricular tachycardia) [facility] [address] [employer] [address] [place] [address] Referral ID Status Reason Start Date Expiration Date Visits Requ ested Visits Authorized [id number] Closed 02/17/2021 02/17/2022 1 1 V Testing [...] INITIAL SUBSTANCE ZZHC US GUIDE FOR PERICARDIOCENTESIS [address] [place] [address] ZZHC ECHO MYOCARD BX ZZC INJECTION, PERFLUTREN LIPID MICROSPHERES, PER ML ZZHC STATISTIC IV PUSH SINGLE INITIAL SUBSTANCE CT ECHO MYOCARD BX CT INJECTION, PERFLUTREN LIPID MICROSPHERES, PER ML CT TTE W/DOPPLER, COMPLETE [address] IV PUSH SINGLE, INITIAL S UBSTANCE CT TTE W/DOPPLER, COMPLETE CT TTE W/DOPPLER, COMPLETE HC US GUIDE FOR PERICARDIOCENTESIS HC ECHO MYOCARD BX HC IV PUSH SINGLE, INITIAL SUBSTANCE HC STATISTIC IV [place]USH [place] [address] HC ECHO COMPLETE W DOPPLER W CONTRAST HC ECHO COMPLETE W DOPPLER W/O CONTRAST [address] Referral ID Status Reason Start Date Expiration Date Visits Requ ested Visits Authorized [id number] Closed 02/17/2021 02/17/2022 1 1 Reason for Visit Reason Onset Date Comments Implantable Devices 02/16/2021 PPM, NSVT/sustained VT Encounter Details Date Type Department Care Team Description 02/16/2021 Telephone [facility] [place] [facility] Triston Butler RN (PPM, NSVT/sustained VT) [address] [facility] [address] [place] [address] Social History Tobacco Use Types [...] [address] [place] [phone] (Wo rk) 08/16/2022 Office Visit Cardiology Ankur Smith MD [address] [place] [phone] (Wo rk) Scheduled Referrals Name Type Priority Associated Diagnoses Order S chedule Follow-Up with Referral Routine Sustained VT 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 Heart Ech[facility] Laboratory [address] [facility] [address] [place] [address] Name: RADHA VILLA : 1940 Study Date: 03/21/2021 12:48 PM Age: 80 yrs Gender: Male Patient Location: [facility] Reason For Study: Sustained VT (ventricu lar tachycardia) (H) Ordering Physician: ANKUR SMITH Referring Physician: ANKUR SMITH Performed By: MCKAY Saenz BSA: 2.5 m2 Height: 71 in Weight: 285 lb HR: 73 BP: 100/68 mmHg Procedure Complete Echo Adult. Vijaya ([facility] #[id number]) given intravenously. Interpretation Summary The visual ejection [...] note might be different from the original. [id number]^KEELEY^[facility] Heart [facility] [address] [facility] [address] [place] [address] Name: RADHA VILLA : 1940 Study Date: 03/21/2021 12:48 PM Age: 80 yrs Gender: Male Patient Location: [facility] Reason For Study: Sustained VT (ventricu lar tachycardia) (H) Ordering Physician: ANKUR SMITH Referring Physician: ANKUR SMITH Performed By: MCKAY Saenz BSA: 2.5 m2 Height: 71 in Weight: 285 lb HR: 73 BP: 100/68 mmHg Procedure Complete Echo Adult. Optison ([facility] #[id number]) given intravenously. Interpretation Summary The visual ejection [...] tachycardia documented in this encounter Care Teams Health Information Clerk Relationship Specialty Start Date End Date Slava Hernandez, PCP - General Physician Sales Superintendent 07/02/1806/02 PA-C [facility] [address] [place] [address] Ankur Smith MD Assigned Heart and 07/23/20 [address] [facility] S Vascular Provider [address] [place] [address] documented as of this encounter
--- OUTSIDE RECORDS SUMMARY | 2022-07-26 10:52 | XMS_ITS | Encounter Summary ---
:1940 Author Organization [place] Address [facility] [place] [address] Care Team Providers Name Role Phone Slava [...] [address] [place] [address] (Wo rk) 08/16/2022 Office Visit Cardiology Timothy Smith MD [address] [place] [phone] (Wo rk) documented as of this encounter Visit Diagnoses Not on filedocumented in this encounter Care Teams Film Casting Operator Relationship Specialty Start Date End Date Slava Hernandez, PCP - General Physician Venetian Blind Washer 07/02/1806/02 HANK[facility] [address] [facility] [place] [address] Timothy Smith MD Assigned Heart and 07/23/20 [address] Vascular Provider [address] [place] [address] documented as of this encounter
--- OUTSIDE RECORDS SUMMARY | 2022-07-26 10:52 | XMS_ITS | Encounter Summary ---
:1940 Author Organization [place] Address [address] [facility] [place] [address] Care Team Providers Name Role Phone Slava Hernandez PA-C Primary Care Provider Timothy Smith MD Unavailable Encounter Details Date Type Department Care Team Description 04/28/2021 Telephone [facility] Keyshawn Myers RN [address] [place] [address] Social History Tobacco Use Types [...] [address] [place] [address] (Wo rk) 08/16/2022 Office Visit Cardiology Timothy Smith MD [address] [place] [address] (Wo rk) documented as of this encounter Visit Diagnoses Not on filedocumented in this encounter Care Teams Steel Fabricating Supervisor Relationship Specialty Start Date End Date Slava Hernandez, PCP - General Physician Sas Sql Developer 07/02/1806/02 PA-C [facility] [address] [place], [place] [address] Timothy Smith MD Assigned Heart and 07/23/20 [address] Vascular Provider [address] [place] [address] documented as of this encounter
--- OUTSIDE RECORDS SUMMARY | 2022-07-26 10:52 | XMS_ITS | Encounter Summary ---
:1940 Author Organization [place] Address [address] [place] [address] Care Team Providers Name Role Phone Slava Hernandez PA-C Primary Care Provider Timothy Smith MD Unavailable Reason for Visit CV Testing (Routine) - Closed Specialty Diagnoses / Procedures Referred By Contact Refer red To Contact Diagnoses Cardiac pacemaker in situ SSS (sick sinus syndrome) (H) [facility] Procedures Cardiac Device Check - Remote [address] [place] [address] [place] [address] Referral ID Status Reason Start Date Expiration Date Visits Requ ested Visits Authorized [id number] Closed 02/16/2021 02/16/2022 1 1 Encounter Details Date Type Department Care Team Description 05/18/2021 Ancillary [facility] Steven [facility]ola iac pacemaker in situ; Procedure [facility] MD Jose SSS (sick sinus syndrome) (H) Heart Care [address] [facility] [address] [place] [address] [place]obb[place] [phone] (Wo rk) [address] [phone] Social History Tobacco Use Types Packs/Day Years [...] MD [address] [place] 059325 (Wo rk) 08/16/2022 Office Visit Cardiology Timothy Smith MD [address] [place] [phone] (Wo rk) documented as of this encounter [...] Range Method Time At Signature Date Time [id number] [employer] Interrogation Session Implantable [employer] Pulse Generator Flask Maker Implantable L121 [place] [employer] Pulse Generator Model Implantable [id number] [employer] Pulse Generator Serial Number Type Remote [employer] Interrogation Session Clinic Name [facility] [employer] Implantable Pacemaker [employer] Pulse Generator Type Implantable [id number] [employer] Pulse Generator Implant Date Implantable Lead [facility] RAUL Flask Maker Implantable Lead 2087TC Tendril MEDTRONI C Model STS Implantable Lead [id number] [employer] Serial Number Implantable Lead [id number] [employer]IC Implant Date Implantable Lead Bipolar Lead [employer] Polarity Type Implantable Lead UNKNOWN [employer] Location Detail 1 Implantable Lead Right Atrium [employer] Location Implantable Lead [facility] [employer] RAUL Flask Maker Implantable Lead 2087TC Tendril MEDTRONI C Model STS Implantable Lead [id number] [employer] Serial Number Implantable Lead [id number] MEDTRONIC [...] 100 % [employer] Remaining Percentage Brandon Statistic [id number] [employer] Date Time Start Brandon Statistic [id number] [employer] Date Time End Brandon Statistic 0 [...] [place] [employer] Statistic Vendor Type Category Episode [id number] [employer] Statistic Recent Date Time Start Episode [id number] [employer] Statistic Recent Date Time End Episode [id number] [employer] Statistic Recent Date Time Start Episode [id number] [employer] Statistic Recent Date Time End Episode [id number] [employer] Statistic Recent Date Time Start Episode [id number] [employer] Statistic Recent Date Time End Episode [id number] [employer] Statistic Recent Date Time Start Episode [id number] [employer] Statistic Recent Date Time End Episode APM-99 [employer] Identifier Episode Type Periodic EGM [employer] Category Episode Date [id number] [employer] Time Episode [id number] [employer] Identifier Episode Type Other [employer]IC Category Episode Date [id number] [employer]IC Time Episode V-1629 [employer] Identifier Episode Type [place] [employer] Category Episode Date [id number] [employer] Time Episode Duration 14 s [employer] Episode V-1628 [employer] Identifier Episode Type [place] [employer] Category Episode Date [id number] [employer] Time Episode Duration 16 s [employer] Anatomical Region Laterality Modality Other Specimen (Source) Anatomical Collection Method Collection Time Re ceived Time Location / / Volume Laterality 05/18/2021 12:41 AM CDT Narrative 05/24/2021 4:14 PM CDT [employer]entio (S) Remote PPM Device Check ORNAMENTAL METAL FABRICATOR APPRENTICE: 30% Mode: VVIR 60-130 Presenting Rhythm: ORNAMENTAL METAL FABRICATOR APPRENTICE Heart Rate: Adequate rates per histogram Sensing: [...] dysfunction documented in this encounter Care Teams Cuff Slitter Relationship Specialty Start Date End Date Slava Hernandez, PCP - General Physician Corporate Real Estate Specialist 07/02/1806/02 PAIlanaC [facility] [address] [place] [address] Timothy Smith MD Assigned Heart and 07/23/20 [address] Vascular Provider [address] [place] [address] documented as of this encounter
--- OUTSIDE RECORDS SUMMARY | 2022-07-26 10:52 | XMS_ITS | Encounter Summary ---
:1940 Author Organization [place] Address [facility] [place] [address] Care Team Providers Name Role Phone Slava [...] [address] [place] [address] (Wo rk) 08/16/2022 Office Visit Cardiology Timothy Smith MD [address] [place] 148235 (Wo rk) documented as of this encounter Visit Diagnoses Not on filedocumented in this encounter Care Teams Aluminum Boats Assembler Relationship Specialty Start Date End Date Slava Hernandez, PCP - General Physician High Raw Sugar Boiler 07/02/1806/02 HANK[facility]C [facility] [address] [facility] [place] [address] Timothy Smith MD Assigned Heart and 07/23/20 [address] Vascular Provider [address] [place] [address] documented as of this encounter
--- OUTSIDE RECORDS SUMMARY | 2022-07-26 10:52 | XMS_ITS | Encounter Summary ---
:1940 Author Organization [place] Address [address] [place] [address] Care Team Providers Name Role Phone Slava Hernandez PA-C Primary Care Provider Timothy Smith MD Unavailable Reason for Referral CV Testing (Routine) - Closed Specialty Diagnoses / Procedures Referred By Contact Refer red To Contact Diagnoses Cardiac pacemaker in situ SSS (sick sinus syndrome) (H) Steven Canchola, Procedures Cardiac Device Check - Remote MD [address] [place] [address] Referral ID Status Reason Start Date Expiration Date Visits Requ ested Visits Authorized [id number] Closed 02/16/2021 02/16/2022 1 1 Reason for Visit CV Testing (Routine) - Closed Specialty Diagnoses / Procedures Referred By Contact Refer red To Contact Diagnoses Cardiac pacemaker in situ Chris De Leon MD Procedures Cardiac Device Check - In Clinic [address] [place] [address] Referral ID Status Reason Start Date Expiration Date Visits Requ ested Visits Authorized [id number] Closed 11/16/2020 11/16/2021 1 1 Encounter Details Date Type Department Care Team Description 02/16/2021 Ancillary Procedure [facility] Chris De Leon SSS (sick sinus syndrome) (H) (Primary Dx); Heart Clinic Cardiac pacemaker in situ [place] [address] [place] [address] AB[place]stein [phone] [address] (Work) [phone] Social History Tobacco Use Types Packs/Day Years [...] [address] [place] [id number] (Wo rk) 08/16/2022 Office Visit Cardiology Timothy Smith MD [address] [place] [id number] (Wo rk) Scheduled Orders Name Type Priority [...] Range Method Time At Signature Date Time [id number] [employer] Interrogation Session Implantable [employer] Pulse Generator Bulk Folder Implantable [id number] ESSENTIO EL [employer]TRONIC Pulse Generator Model Implantable [id number] MEDTRONIC Pulse Generator Serial Number Type Remote MEDTRONIC Interrogation Session Clinic Name [facility] [facility] Implantable Pacemaker MEDTRONIC Pulse Generator Type Implantable [id number] MEDTRONIC Pulse Generator Implant Date Implantable Lead [facility] [facility] RAUL Bulk Folder Implantable Lead Tendril MEDTRONI C Model STS Implantable Lead [id number] MEDTRONIC Serial Number Implantable Lead [id number] MEDTRONIC Implant Date Implantable Lead Bipolar Lead MED[employer]ONIC Polarity Type Implantable Lead UNKNOWN [facility]TRONIC Location Detail 1 Implantable Lead Right Atrium [facility]TRON[employer] Location Implantable Lead [facility] RAUL Bulk Folder Implantable Lead Tendril MEDTRONI C Model STS Implantable Lead [id number] [employer]IC Serial Number Implantable Lead [id number] MEDTRONIC [...] MEDTRONIC Pacing Threshold Pulse Width Battery Date [id number] MEDTRONIC Time of Measurements Battery Status Beginning [...] [place] [facility]IC Statistic Vendor Type Category Episode [id number] [employer]TRONIC Statistic Recent Date Time Start Episode [id number] [employer]TRONIC Statistic Recent Date Time End Episode [id number] [employer]TRONIC Statistic Recent Date Time Start Episode [id number] MEDTRONIC Statistic Recent Date Time End Episode [id number] MEDTRONIC Statistic Recent Date Time Start Episode [id number] MEDTRONIC Statistic Recent Date Time End Episode [id number] [employer]TR[employer]IC Statistic Recent Date Time Start Episode [id number] [employer]TRONIC Statistic Recent Date Time End Episode APM-99 MEDTR[employer]IC Identifier Episode Type Periodic EGM MEDTRONIC Category Episode Date [id number] MEDTRONIC Time Episode [id number] MEDTRONIC Identifier Episode Type Other MEDTRONIC Category Episode Date [id number] MEDTRONIC Time Episode V-1629 MEDTRONIC Identifier Episode Type [place] MEDTRONIC Category Episode Date [id number] MEDTRONIC Time Episode Duration 14 s MEDTRONIC Episode V-1628 MEDTRONIC Identifier Episode Type [place] [facility]TRONIC Category Episode Date [id number] [employer]IC Time Episode Duration 16 s MEDTRONIC Anatomical Region Laterality Modality Other Specimen (Source) Anatomical Collection Method Collection Time Re ceived Time Location / / Volume Laterality 05/18/2021 12:41 AM CDT Narrative 05/24/2021 4:14 PM CDT PressBaby Essentio (S) Remote PPM Device Check GRAPHIC USER INTERFACE DESIGNER: 30% Mode: VVIR 60-130 Presenting Rhythm: GRAPHIC USER INTERFACE DESIGNER Heart Rate: Adequate rates per histogram Sensing: Stable Pacing Threshold: Stable Impedance: Stable Battery Status: 10.5 years Atrial Arrhythmia: n/a Ventricular Arrhythmia: 2 ventricular hi gh rates. 2 EGMs for review show irregular VS events suggestive of RVR, e pisodes lasting 27-35 seconds, rates 100-180 bpm. Care Plan: F/U latitude ppm in 3 months. Gave PT results over the phone. KAE Henriquez/ KAE Keen I have reviewed and [...] Range Method Time At Signature Date Time [id number] [employer] Interrogation Session Implantable [employer] Pulse Generator Bulk Folder Implantable L121 ESSENTIO EL [employer]IC Pulse Generator Model Implantable [id number] MEDTRONIC Pulse Generator Serial Number Type In Clinic [facility]ONIC Interrogation Session Clinic Name [facility] [place] [facility] Implantable Pacemaker MEDTRONIC Pulse Generator Type Implantable [id number] MEDTRONIC Pulse Generator Implant Date Implantable Lead [facility] RAUL Bulk Folder Implantable Lead 8TC Tendril MEDTRONI C Model STS Implantable Lead [id number] MED[employer]ONIC Serial Number Implantable Lead [id number] MEDTRONIC Implant Date Implantable Lead Bipolar Lead [employer]TRONIC Polarity Type Implantable Lead UNKNOWN MEDTRONIC Location Detail 1 Implantable Lead Right Atrium [facility]IC Location Implantable Lead 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 AP: NA ?% ?? GRAPHIC USER INTERFACE DESIGNER: 39 % ?? Mode: VVIR 60-130 [...] dysfunction documented in this encounter Care Teams Tree Feller Relationship Specialty Start Date End Date Slava Hernandez, PCP - General Physician Lumber Handler 07/02/1806/02 PA-C [facility] [address] [place] [address] Timothy Smith MD Assigned Heart and 07/23/20 [address] V[address] Provider [address] [place] [address] documented as of this encounter
--- OUTSIDE RECORDS SUMMARY | 2022-07-26 10:52 | XMS_ITS | Encounter Summary ---
:1940 Author Organization [place] Address [address] [place] [address] Care Team Providers Name Role Phone Slava Hernandez PA-C Primary Care Provider Tmiothy Smith MD Unavailable Reason for Visit Reason Comments Atrial Fib ekg done (Routine) - Closed Specialty Diagnoses / Procedures Referred By Contact Refer red To Contact Diagnoses Sustained [place] (ventricular tachycardia) Timothy Smith MD [address] [place] [address] Referral ID Status Reason Start Date Expiration Date Visits Requ ested Visits Authorized [id number] Closed 03/23/2021 03/23/2022 1 1 Encounter Details Date Type Department Care Team Description 04/26/2021 Office Visit [facility] Timothy Smith MD Persistent atrial fibrillation (H) (Prim arnie Dx); [facility] [place] [address] Sustained VT (ventricular ta chycardia) (H); [address] [facility] [address] Morbid obesity (H) [facility] [address] [place] [address] [place]obbins [phone] Social History Tobacco Use Types Packs/Day Years [...] Timothy Smith MD cc: Slava Hernandez PA-C [facility] [place] [id number] [place] [address] Timothy Smith MD MT: francesca Name: RADHA VILLA MRN: [id number] Account: [id number] : 1940 Service Date: 04/26/2021 Document: [id number] Timothy Smith MD - 04/26/2021 12:45 PM [...] Gatherings with Friends and Family: ??? Attends Anglican Services: ??? Active Member of Clubs or [...] [address] [place] [address] documented in this encounter Plan of Treatment Upcoming Encounters Date Type Specialty Care Team Description 08/16/2022 Ancillary Procedure Cardiology Timothy Smith MD [address] [place] [id number] (Wo rk) 08/16/2022 Office Visit Cardiology Timothy Smith MD [address] [place] [id number] (Wo rk) documented as of this encounter [...] obesity documented in this encounter Care Teams Supply Analyst Relationship Specialty Start Date End Date Slava Hernandez, PCP - General Physician Health Policy Manager 07/02/1806/02 PA-C [facility] [address] [place] [address] Timothy Smith MD Assigned Heart and 07/23/20 [address] V[address] [place] [phone] documented as of this encounter
--- OUTSIDE RECORDS SUMMARY | 2022-07-26 10:52 | XMS_ITS | Encounter Summary ---
:1940 Author Organization [place] Address [address] [place] [address] Care Team Providers Name Role Phone Slava [...] INITIAL SUBSTANCE [facility] US GUIDE FOR PERICARDIOCENTESIS [address] [place] [address] [facility] ECHO MYOCARD BX ZZC INJECTION, PERFLUTREN LIPID MICROSPHERES, PER ML [facility] STATISTIC IV PUSH SINGLE INITIAL SUBSTANCE HI ECHO MYOCARD BX HI INJECTION, PERFLUTREN LIPID MICROSPHERES, PER ML HI TTE W/DOPPLER, COMPLETE [address] HI IV PUSH SINGLE, INITIAL S UBSTANCE HI TTE W/DOPPLER, COMPLETE HI TTE W/DOPPLER, COMPLETE HC US GUIDE FOR PERICARDIOCENTESIS HC ECHO MYOCARD BX HC IV PUSH SINGLE, INITIAL SUBSTANCE HC STATISTIC IV PUSH SINGLE [place] [address] HC ECHO COMPLETE W DOPPLER W CONTRAST HC ECHO COMPLETE W DOPPLER W/O CONTRAST [id number] Referral ID Status Reason Start Date Expiration Date Visits Requ ested Visits Authorized [id number] Closed 02/17/2021 02/17/2022 1 1 Reason for [...] INITIAL SUBSTANCE ZZ[facility] US GUIDE FOR PERICARDIOCENTESIS [address] USINE [address] [facility] ZZHC ECHO MYOCARD BX ZZC INJECTION, PERFLUTREN LIPID MICROSPHERES, PER ML [facility] STATISTIC IV PUSH SINGLE INITIAL SUBSTANCE HI ECHO MYOCARD BX HI INJECTION, PERFLUTREN LIPID MICROSPHERES, PER ML HI TTE W/DOPPLER, COMPLETE [address] HI IV PUSH SINGLE, INITIAL S UBSTANCE HI TTE W/DOPPLER, COMPLETE HI TTE W/DOPPLER, COMPLETE HC US GUIDE FOR PERICARDIOCENTESIS HC ECHO MYOCARD BX HC IV PUSH SINGLE, INITIAL SUBSTANCE HC STATISTIC IV PUSH SINGLE [place] [address] HC ECHO COMPLETE W DOPPLER W CONTRAST HC ECHO COMPLETE W DOPPLER W/O CONTRAST [address] Referral ID Status Reason Start Date Expiration Date Visits Requ ested Visits Authorized [id number] Closed 02/17/2021 02/17/2022 1 1 Encounter Details Date Type Department Care Team Description 03/21/2021 Hospital Encounter [facility] Ankur Smith MD Sustained [place] [address] (ventr icular Heart Care [address] tachycardia) (H) [address] [facility] [place] [phone] (Primary Dx) [facility] [phone] [address] (Work) [place] [address] Social History [...] Coronary artery disease minutes as needed involving [place] coronary for chest pain artery of [place] heart without angina pectoris apixaban ANTICOAGULANT Take [...] [address] [place] [id number] (Wo rk) 08/16/2022 Office Visit Cardiology Ankur Smith MD [address] [place] [id number] (Wo rk) documented as of this encounter [...] PM CDT Narrative 03/21/2021 2:22 PM CDT [id number]^KEELEY^ANKUR [facility] Heart Echocardi[facility] Laboratory [address] [facility] [address] [place] [address] Name: RADHA FAROOQ : 1940 Study Date: 03/21/2021 12:48 PM Age: 80 yrs Gender: Male Patient Location: [facility] [address] Reason For Study: Sustained VT (ventricu lar tachycardia) (H) Ordering Physician: ANKUR SMITH Referring Physician: ANKUR SMITH Performed By: MCKAY Saenz BSA: 2.5 m2 Height: 71 in Weight: 285 lb HR: 73 BP: 100/68 mmHg Procedure Complete Echo Adult. Vijaya ([facility] #[id number]) given intravenously. Interpretation Summary The visual ejection [...] note might be different from the original. [id number]^KEELEY^SUSANNASUSANA [facility] Heart Echocardi[facility] Laboratory [address] [facility] [address] [place] [address] Name: RADHA FAROOQ : 1940 Study Date: 03/21/2021 12:48 PM Age: 80 yrs Gender: Male Patient Location: [facility] [address] Reason For Study: Sustained VT (ventricu lar tachycardia) (H) Ordering Physician: ANKUR SMITH Referring Physician: ANKUR SMITH Performed By: ZEHRA Saenz BSA: 2.5 m2 Height: 71 in Weight: 285 lb HR: 73 BP: 100/68 mmHg Procedure Complete Echo Adult. Optison ([facility] #[id number]) given intravenously. Interpretation Summary The visual ejection [...] On Sun03/21/21 at 1330, For 1 dose, [facility] [id number] sodium chloride (PF) 0.9% PF flush 10 mL Given 03/21/2021 1:19 PM CDT 10 mLs 10 mL, Intravenous, ONCE, On Sun03/21/21 at 1330, For 1 dose documented in this encounter Care Teams Apprentice Funeral Director Relationship Specialty Start Date End Date Slava Hernandez, PCP - General Physician Access Lead 07/02/1806/02 PA-C [facility] [address] [place] [address] Ankur Smith MD Assigned Heart and 07/23/20 [address] Vascular Provider [address] [place] [address] documented as of this encounter
--- OUTSIDE RECORDS SUMMARY | 2022-07-26 10:52 | XMS_ITS | Encounter Summary ---
:1940 Author Organization [place] Address [facility] [place] [address] Care Team Providers Name Role Phone Slava [...] [address] [place] [address] (Wo rk) 08/16/2022 Office Visit Cardiology Timothy Smith MD [address] [place] [phone] (Wo rk) documented as of this encounter Visit Diagnoses Not on filedocumented in this encounter Care Teams Promotional Marketing Analyst Relationship Specialty Start Date End Date Slava Hernandez, PCP - General Physician Emr Implementation Specialist 07/02/1806/02 [facility] [address] [facility] [place] [address] Timothy Smith MD Assigned Heart and 07/23/20 [address] [place] [address] documented as of this encounter
--- OUTSIDE RECORDS SUMMARY | 2022-07-26 10:53 | XMS_ITS | Encounter Summary ---
:1940 Author Organization [place] Address [address] [place] [address] Care Team Providers Name Role Phone Slava Hernandez PA-C Primary Care Provider Reason for Visit Reason Onset Date Comments Refill Request 10/15/2019 send eliquis to mail order pharmacy-I gave him samples to PU as he has not bee n taking due to cost Encounter Details Date Type Department Care Team Description 10/15/2019 Refill [facility] Heart Zarina Smith MD Refill Request (send [facility] [place] [address] eliquis to mail order [address] [facility] [address] pharmacy-I gave him [address] [place] [address] samples to PU as he has [place] [phone] not been taking due to [phone] cost) Social History Tobacco Use Types Packs/Day Years Used Date Smoking Tobacco: Never Smokeless Tobacco: Never Alcohol Use Standard Drinks/Week Comments No 0 (1 standard drink = 0.6 oz pure alcoho l) Sex Assigned at Date Recorded Not on file documented as of this encounter Plan of Treatment Upcoming Encounters Date Type Specialty Care Team Description 08/16/2022 Ancillary Procedure Cardiology Timothy Smith MD [address] [place] [id number] (Wo rk) 08/16/2022 Office Visit Cardiology Timothy Smith MD [address] [place] [address] (Wo rk) documented as of this encounter Visit Diagnoses Diagnosis Paroxysmal atrial fibrillation (H) Atrial fibrillation documented in this encounter Care Teams Timber Sizer Relationship Specialty Start Date End Date Slava Hernandez PA-C PCP - General Physician Figure Clerk 07/02/18 06/29/21 [facility] [address] [place] [address] documented as of this encounter
--- OUTSIDE RECORDS SUMMARY | 2022-07-26 10:53 | XMS_ITS | Encounter Summary ---
:1940 Author Organization [place] Address [facility] [address] Care Team Providers Name Role Phone Slava Hernandez PA-C Primary Care Provider Reason for Visit Reason Onset Date Comments Medication Request 10/31/2019 Encounter Details Date Type Department Care Team Description 10/31/2019 [facility] Urology Shea Rivera , Medication Request Clinic [place] LÓPEZ [address] [place] [address] [place] 3[address]25 (Wo rk) Social History Tobacco Use Types Packs/Day Years Used Date Smoking Tobacco: Never Smokeless Tobacco: Never Alcohol Use Standard Drinks/Week Comments No 0 (1 standard drink = 0.6 oz pure alcoho l) Sex Assigned at Date Recorded Not on file documented as of this encounter Miscellaneous Notes Telephone Encounter - Heriberto Grossman - 10/31/2019 8:47 AM CST [facility] Call Center Phone Message May a detailed message be left on voicemail: yes Reason for Call: Medication Refill Request Has the patient contacted the pharmacy for the refill? Yes Name of medication being requested: tamsulosin (FLOMAX) 0.4 MG capsule Provider who prescribed the medication: Beverly Davis, RN [facility] [address] AT PORTAL TO REGISTERED [address] Date medication is needed: 2/3 Action Taken: Message routed to: [facility]): urology N WEIGHER documented in this encounter Plan of Treatment Upcoming Encounters Date Type Specialty Care Team Description 08/16/2022 Ancillary Procedure Cardiology Timothy Smith MD [address] [place] [address] (Wo rk) 08/16/2022 Office Visit Cardiology Timothy Smith MD [address] [place] [address] (Wo rk) documented as of this encounter Visit Diagnoses Diagnosis BPH (benign prostatic hyperplasia) - Ria jing Unspecified hyperplasia of prostate with out urinary obstruction and other lower urinary tract symptoms (LUTS) documented in this encounter Care Teams Landscape Management Technician Relationship Specialty Start Date End Date Slava Hernandez PA-C PCP - General Physician Restaurant Delivery Driver 07/02/18 06/29/21 [facility] [address] [place] [address] documented as of this encounter
--- OUTSIDE RECORDS SUMMARY | 2022-07-26 10:53 | XMS_ITS | Encounter Summary ---
:1940 Author Organization [place] Address [facility] [place] [address] Care Team Providers Name Role Phone Slava Hernandez PA-C Primary Care Provider Timothy Smith MD Unavailable Reason for Visit Reason Onset Date Comments Refill Request 08/25/2020 Eliquis Encounter Details Date Type Department Care Team Description 08/25/[address] [facility] Heart Zarina Smith MD Refill Request (Eliquis) [facility] [place] [address] [facility] [address] [place] [address] [place] [phone] Social History Tobacco Use Types Packs/Day Years [...] Procedure Cardiology Timothy Smith MD [address] [place] [address]125 (Wo rk) 08/16/2022 Office Visit Cardiology Timothy Smith MD [address] [place] [address] (Wo rk) documented as of this encounter Visit Diagnoses Diagnosis Paroxysmal atrial fibrillation (H) Atrial fibrillation documented in this encounter Care Teams Shaping Machine Tender Relationship Specialty Start Date End Date Slava Hernandez, PCP - General Physician Valve Setter 07/02/1806/02 [facility] [address] [place] [address] Timothy Smith MD Assigned Heart and 07/23/20 [address] [facility] Vascular Provider [address] [place] [address] documented as of this encounter
--- OUTSIDE RECORDS SUMMARY | 2022-07-26 10:53 | XMS_ITS | Encounter Summary ---
:1940 Author Organization [place] Address [address] [facility] [place] [address] Care Team Providers Name Role Phone Slava Hernandez PA-C Primary Care Provider Timothy Smith MD Unavailable Reason for Visit CV Testing (Routine) - Closed Specialty Diagnoses / Procedures Referred By Contact Refer red To Contact Diagnoses Cardiac pacemaker in situ Timothy Smith MD Procedures Cardiac Device Check - Remote [address] [place] [address] Referral ID Status Reason Start Date Expiration Date Visits Requ ested Visits Authorized [id number] Closed 05/04/2020 05/04/2021 1 1 Encounter Details Date Type Department Care Team Description 08/03/2020 Ancillary Procedure [facility] Timothy Smith MD Cardiac pacemaker in [facility] [address] situ Heart Care S [address] [facility] [place] [address] [facility] [address] [place] [address] (Work) [phone] Social History Tobacco Use Types Packs/Day Years [...] [address] [place] [address] (Wo rk) 08/16/2022 Office Visit Cardiology Timothy Smith MD [address] [place] [address] (Wo rk) documented as of this encounter Procedures Procedure Name Priority Date/Time Associated Comments Diagnosis INTERROGATION DEVICE Routine 08/03/2020 8:56 AM Cardiac pacema ker Results for this EVAL REMOTE PACER UP PUBLICATIONS MANAGER in situ procedu re are in TO 90 DAYS the results section. documented in this encounter Results INTERROGATION DEVICE EVAL REMOTE PACER UP TO 90 DAYS (08/03/2020 8:56 AM PUBLICATIONS MANAGER) Component Value Ref Test Analysis Performed Pathologis t Range Method Time At Signature Date Time [id number] MEDTRONIC Interrogation Session Implantable [place] [employer] MEDTRONIC Pulse Generator Material Handler 2Nd Shift Implantable L121 ESSENTIO EL MEDTRONIC Pulse Generator Model Implantable [id number] MEDTRONIC Pulse Generator Serial Number Type Remote MEDTRONIC Interrogation Session Clinic Name [facility]ONIC Implantable Pacemaker MEDTRONIC Pulse Generator Type Implantable [id number] MEDTRONIC Pulse Generator Implant Date Implantable Lead [employer] MEDTRO RAUL Material Handler 2Nd Shift Implantable Lead 2087TC Tendril MEDTRONI C Model STS Implantable Lead [id number] MEDTRONIC Serial Number Implantable Lead [id number] MEDTRONIC Implant Date Implantable Lead Bipolar Lead MEDTRONIC Polarity Type Implantable Lead UNKNOWN MEDTRONIC Location Detail 1 Implantable Lead Right Atrium MEDTRONIC Location Implantable Lead [facility] MEDTRO RAUL Material Handler 2Nd Shift Implantable Lead 2087TC Tendril MEDTRONI C Model STS Implantable Lead [id number] MEDTRONIC Serial Number Implantable Lead [id number] MEDTRONIC Implant Date Implantable Lead Bipolar Lead [...] 100 % MEDTRONIC Remaining Percentage Brandon Statistic [id number] MEDTRONIC Date Time Start Brandon Statistic [id number] MEDTRONIC Date Time End Brandon Statistic 0 [...] [place] MEDTRONIC Statistic Vendor Type Category Episode [id number] MEDTRONIC Statistic Recent Date Time Start Episode [id number] MEDTRONIC Statistic Recent Date Time End Episode [id number] MEDTRONIC Statistic Recent Date Time Start Episode [id number] MEDTRONIC Statistic Recent Date Time End Episode [id number] MEDTRONIC Statistic Recent Date Time Start Episode [id number] MEDTRONIC Statistic Recent Date Time End Episode [id number] MEDTRONIC Statistic Recent Date Time Start Episode [id number] MEDTRONIC Statistic Recent Date Time End Episode APM-96 MEDTRONIC Identifier Episode Type Periodic EGM MEDTRONIC Category Episode Date [id number] MEDTRONIC Time Episode [id number]-[id number] MEDTRONIC Identifier Episode Type Other MEDTRONIC Category Episode Date [id number] MEDTRONIC Time Episode V-1560 MEDTRONIC Identifier Episode Type [place] MEDTRONIC Category Episode Date [id number] MEDTRONIC Time Episode Duration 13 s MEDTRONIC Episode V-1559 MEDTRONIC Identifier Episode Type [place] MEDTRONIC Category Episode Date [id number] MEDTRONIC Time Episode Duration 19 s MEDTRONIC Episode V-1558 MEDTRONIC Identifier Episode Type [place] MEDTRONIC Category Episode Date [id number] MEDTRONIC Time Episode Duration 11 s MEDTRONIC Episode V-1557 MEDTRONIC Identifier Episode Type [place] MEDTRONIC Category Episode Date [id number] MEDTRONIC Time Episode Duration 11 s MEDTRONIC Episode V-1556 MEDTRONIC Identifier Episode Type [place] MEDTRONIC Category Episode Date [id number] MEDTRONIC Time Episode Duration 29 s MEDTRONIC Episode V-1555 MEDTRONIC Identifier Episode Type [place] MEDTRONIC Category Episode Date [id number] MEDTRONIC Time Episode Duration 13 s MEDTRONIC Anatomical Region Laterality Modality Other Specimen (Source) Anatomical Collection Method Collection Time Re ceived Time Location / / Volume Laterality 08/03/2020 12:41 AM PUBLICATIONS MANAGER Narrative 08/04/2020 1:54 PM PUBLICATIONS MANAGER [employer] Essentio (S) Remote PPM Device Check RIG SUPERINTENDENT: 35%, Chronic AFib, taking Eliquis Mode: VVIR Presenting Rhythm: RIG SUPERINTENDENT Heart Rate: adequate heart rates per his [...] situ documented in this encounter Care Teams Dev Ops Engineer Relationship Specialty Start Date End Date Slava Hernandez, PCP - General Physician Surgical Dressing Maker 07/02/1806/02 PA-C [place] [id number] Timothy Smith MD Assigned Heart and 07/23/20 [address] Vascular Provider [address] [place] [id number] documented as of this encounter
--- OUTSIDE RECORDS SUMMARY | 2022-07-26 10:53 | XMS_ITS | Encounter Summary ---
:1940 Author Organization [place] Address [facility] [address] Care Team Providers Name Role Phone Slava Hernandez PA-C Primary Care Provider Timothy Smith MD Unavailable Reason for Visit Reason Comments Medication Refill Encounter Details Date Type Department Care Team Description 09/24/[address] [facility] Urology Shea Rivera PA-C Medication Refill [facility] [place] [address] [place] [address] [place] [address] [place] [phone] Social History Tobacco Use Types Packs/Day Years Used Date Smoking Tobacco: Never Smokeless Tobacco: Never Alcohol Use Standard Drinks/Week Comments No 0 (1 standard drink = 0.6 oz pure alcoho l) Sex Assigned at Date Recorded Not on file documented as of this encounter Plan of Treatment Upcoming Encounters Date Type Specialty Care Team Description 08/16/2022 Ancillary Procedure Cardiology Timothy Smith MD [address] [place] [id number] (Wo rk) 08/16/2022 Office Visit Cardiology Timothy Smith MD [address] [place] [phone] (Wo rk) documented as of this encounter Visit Diagnoses Diagnosis Urinary frequency Weak urinary stream Slowing of urinary stream documented in this encounter Care Teams Veneer Jointer Returner Relationship Specialty Start Date End Date Slava Hernandez, PCP - General Physician Freight Claim Investigator 07/02/1806/02 [facility] [address] [place] [address] Timothy Smith MD Assigned Heart and 07/23/20 [address] [facility] Vascular Provider [address] [place] [address] documented as of this encounter
--- OUTSIDE RECORDS SUMMARY | 2022-07-26 10:53 | XMS_ITS | Encounter Summary ---
:1940 Author Organization [place] Address [address] [facility] [place] [address] Care Team Providers Name Role Phone Slava Hernandez PA-C Primary Care Provider Reason for Referral (Routine) - Closed Specialty Diagnoses / Procedures Referred By Contact Refer red To Contact Diagnoses Persistent atrial fibrillation (H) Cardiac pacemaker in situ Elda Johnson APRN CNP [address] [place] [address] Referral ID Status Reason Start Date Expiration Date Visits Requ ested Visits Authorized [id number] Closed 01/20/2020 01/19/2021 1 1 Reason for Visit Reason Onset Date Comments Atrial Fib 01/20/2020 (Routine) - Closed Specialty Diagnoses / Procedures Referred By Contact Refer red To Contact Diagnoses Persistent atrial fibrillation (H) Timothy Smith MD [address] [place] [address] Referral ID Status Reason Start Date Expiration Date Visits Requ ested Visits Authorized [id number] Closed 06/25/2019 06/24/2020 1 1 Encounter Details Date Type Department Care Team Description 01/20/[address] [facility] Elda Johnson atrial fibrillation (Primary Dx); [facility] [place] Montoya APRN CNP Cardiac pacemaker in situ; [address] [facility] [address] [facility] Paroxysmal atrial fibrillation (H) South [address] [place] [address] [place] [address] [phone] Social History Tobacco Use Types Packs/Day Years [...] this encounter Progress Notes Elda Johnson APRN ENVIRONMENTAL PROGRAMS SPECIALIST - 01/20/2020 9:30 AM CDT [facility] [place] [...] invitation sent by: Text to cell phone: [phone] Doximity Video Start Time: 9:30 am Additional [...] (diabetes, CAD, age++) 3. Sinus node dysfunction??s/p??dual-chamber [employer] pacemaker 01/2016. 4. Coronary disease??s/p 4v CABG (1986) - ??VG -OM, VG-RCA, VG-LAD and VG- Diagonal at that time. Angiogram 01/2016 showed patent VGs 5. Cardiomyopathy?? 6. RBBB 7. Obstructive sleep apnea 8. type 2 diabetes 9. obesity Diagnostics: ?? Device check (10/2019) revealed A-paced <1% COMMERCIAL ANNOUNCER: 61 % Stable leads. Battery life 9 [...] adverse side effects and Financial programs through [employer]. ?? Coronary artery disease. Patient had??a CABG [...] Dr. Smith and encouraged pt to seek [employer]'s financial assistance for Eliquis ?? Patient expresses understanding and agreement with the plan. ?? I appreciate the chance to help with Haris Villa Please let me know if you have any questions or concerns. ?? Elda Johnson APRN, AQUILINO Video-Visit Details Type of service: Video Visit Video End Time (time video stopped): 9:40 Originating Location (pt. Location): Home Distant Location (provider location): [facility] Mode of Communication: Video Conference via [employer] Elda Johnson APRN CNP documented in this encounter Plan of Treatment Upcoming Encounters Date Type Specialty Care Team Description 08/16/2022 Ancillary Procedure Cardiology Timothy Smith MD [address] [place] [address] (Wo rk) 08/16/2022 Office Visit Cardiology Timothy Smith MD [address] [place] [address] (Wo rk) Scheduled Referrals Name Type Priority Associated Diagnoses Order S chedule Follow-Up with Referral Routine Persistent atrial Expected : Mortgage Coordinator fibrillation 07/21/2020 Cardiac pacemaker in (Approx imate), situ Expires: 01/19/2021 documented as of this encounter Visit Diagnoses Diagnosis Persistent atrial fibrillation (H) - [facility] Atrial fibrillation Cardiac pacemaker in situ Paroxysmal atrial fibrillation (H) Atrial fibrillation documented in this encounter Care Teams Bezel Cutter Relationship Specialty Start Date End Date Slava Hernandez, PAIlanaC PCP - General Physician International Sales Representative 07/02/18 06/29/21 [facility] [id number] [place] [address] documented as of this encounter
--- OUTSIDE RECORDS SUMMARY | 2022-07-26 10:53 | XMS_ITS | Encounter Summary ---
:1940 Author Organization [place] Address [address] [facility] [place] [address] Care Team Providers Name Role Phone Slava Hernandez PA-C Primary Care Provider Timothy Smith MD Unavailable Encounter Details Date Type Department Care Team Description 11/08/2020 Telephone [facility] Sergo Tamayo RN [place] [address] [place] [address] [address] [place] [address] Social History Tobacco Use Types [...] discuss further. Awaiting return call. SIENNA Okeefe DOZER MECHANIC Telephone Encounter - Temitope Tamayo RN - 11/08/2020 11:17 AM CST ----- Message from Catherine Aranda LPN sent at 11/08/2020 10:32 AM BULLDOZER MECHANIC ----- Pt left a VM message on my phone that eliquis is too expensive, over 500$, he Rosanna will not be taking that, what else can I try-will forward to AF team His pn# [phone] [place] flatbed driver DOZER MECHANIC documented in this encounter Plan of Treatment Upcoming Encounters Date Type Specialty Care Team Description 08/16/2022 Ancillary Procedure Cardiology Timothy Smith MD [address] [place] [address] (Wo rk) 08/16/2022 Office Visit Cardiology Timothy Smith MD [address] [place] [address] (Wo rk) documented as of this encounter Visit Diagnoses Not on filedocumented in this encounter Care Teams Clinical Education Academic Coordinator Relationship Specialty Start Date End Date Slava Hernandez, PCP - General Physician Electric Meter Inspector 07/02/1806/02 PA-C [facility] [address] [place] [address] Timothy Smith MD Assigned Heart and 07/23/20 [address] Vascular Provider [address] [place] [address] documented as of this encounter
--- OUTSIDE RECORDS SUMMARY | 2022-07-26 10:53 | XMS_ITS | Encounter Summary ---
:1940 Author Organization [place] Address [address] [facility] [place] [address] Care Team Providers Name Role Phone Slava Hernandez PA-C Primary Care Provider Timothy Smith MD Unavailable Reason for Visit Reason Onset Date Comments Refill Request 08/30/2020 bridge to mail order !! Encounter Details Date Type Department Care Team Description 08/30/2020 Refill [facility] Heart Zarina Smith MD Refill Request ([facility] [place] [address] to mail order!!) [address] [place] [address] [place] [address] [phone] Social History Tobacco Use Types Packs/Day Years [...] [address] [place] [address] (Wo rk) 08/16/2022 Office Visit Cardiology Timothy Smith MD [address] [place] [address] (Wo rk) documented as of this encounter Visit Diagnoses Diagnosis Paroxysmal atrial fibrillation (H) Atrial fibrillation documented in this encounter Care Teams Security Site Supervisor Relationship Specialty Start Date End Date Slava Hernandez, PCP - General Physician Student Services Representative 07/02/1806/02 [facility] [address] [place] [address] Timothy Smith MD Assigned Heart and 07/23/20 [address] [facility] Vascular Provider [address] [place] [address] documented as of this encounter
--- OUTSIDE RECORDS SUMMARY | 2022-07-26 10:53 | XMS_ITS | Encounter Summary ---
:1940 Author Organization [place] Address [address] [facility] [place] [address] Care Team Providers Name Role Phone Slava Hernandez PA-C Primary Care Provider Reason for Visit CV Testing (Routine) - Closed Specialty Diagnoses / Procedures Referred By Contact Refer red To Contact Diagnoses Cardiac pacemaker in situ Basil Guadalupe MD Procedures Cardiac Device Check - Remote [address] [place] [address] [place] [address] Referral ID Status Reason Start Date Expiration Date Visits Requ ested Visits Authorized [id number] Closed 01/27/2020 01/26/2021 1 1 Encounter Details Date Type Department Care Team Description 05/04/2020 Ancillary Procedure [facility] Basil Guadalupe ardiac pacemaker in [facility] MD [place] situ Heart Care [address] [facility] [address] [place] [address] [facility] [address] [place] [address] [place] [phone] [address] (Work) [phone] Social History Tobacco Use Types Packs/Day Years Used Date Smoking Tobacco: Never Smokeless Tobacco: Never Alcohol Use Standard Drinks/Week Comments No 0 (1 standard drink = 0.6 oz pure alcoho l) Sex Assigned at Date Recorded Not on file documented as of this encounter Plan of Treatment Upcoming Encounters Date Type Specialty Care Team Description 08/16/2022 Ancillary Procedure Cardiology Timothy Smith MD [address] [place] [address] (Wo rk) 08/16/2022 Office Visit Cardiology Timothy Smith MD [address] [place] [address] (Wo rk) documented as of this encounter [...] Range Method Time At Signature Date Time [id number] MEDTRONIC Interrogation Session Implantable [employer] MED[employer]ONIC Pulse Generator Assembler Tractor Implantable L121 ESSENTIO EL MEDTRONIC Pulse Generator Model Implantable [id number] MEDTRONIC Pulse Generator Serial Number Type Remote MEDTRONIC Interrogation Session Clinic Name [facility] MEDTRONIC Implantable Pacemaker MEDTRONIC Pulse Generator Type Implantable [id number] MEDTRONIC Pulse Generator Implant Date Implantable Lead [facility] MEDTRO RAUL Assembler Tractor Implantable Lead 2088TC Tendril MEDTRONI C Model STS Implantable Lead [id number] MEDTRONIC Serial Number Implantable Lead [id number] MEDTRONIC Implant Date Implantable Lead Bipolar Lead MEDTRONIC Polarity Type Implantable Lead UNKNOWN MEDTRONIC Location Detail 1 Implantable Lead Right Atrium MEDTRONIC Location Implantable Lead [facility] MEDTRO RAUL Assembler Tractor Implantable Lead 2088TC Tendril MEDTRONI C Model STS Implantable Lead [id number] MEDTRONIC Serial Number Implantable Lead [id number] MEDTRONIC Implant Date Implantable Lead Bipolar Lead [...] 100 % MEDTRONIC Remaining Percentage Brandon Statistic [id number] MEDTRONIC Date Time Start Brandon Statistic [id number] MEDTRONIC Date Time End Brandon Statistic 0 [...] [place] MEDTRONIC Statistic Vendor Type Category Episode [id number] MEDTRONIC Statistic Recent Date Time Start Episode [id number] MEDTRONIC Statistic Recent Date Time End Episode [id number] MEDTRONIC Statistic Recent Date Time Start Episode [id number] MEDTRONIC Statistic Recent Date Time End Episode [id number] MEDTRONIC Statistic Recent Date Time Start Episode [id number] MEDTRONIC Statistic Recent Date Time End Episode [id number] MEDTRONIC Statistic Recent Date Time Start Episode [id number] MEDTRONIC Statistic Recent Date Time End Episode APM-95 MEDTRONIC Identifier Episode Type Periodic EGM MEDTRONIC Category Episode Date [id number] MEDTRONIC Time Episode RVAT-3150 MEDTRONIC Identifier Episode Type Other MEDTRONIC Category Episode Date [id number] MEDTRONIC Time Episode V-1554 MEDTRONIC Identifier Episode Type [place] MEDTRONIC Category Episode Date [id number] MEDTRONIC Time Episode Duration 13 s MEDTRONIC Episode V-1553 MEDTRONIC Identifier Episode Type [place] MEDTRONIC Category Episode Date [id number] MEDTRONIC Time Episode Duration 18 s MEDTRONIC Episode V-1552 MEDTRONIC Identifier Episode Type [place] MEDTRONIC Category Episode Date [id number] MEDTRONIC Time Episode Duration 14 s MEDTRONIC Episode V-1551 MEDTRONIC Identifier Episode Type [place] MEDTRONIC Category Episode Date [id number] MEDTRONIC Time Episode Duration 13 s MEDTRONIC Anatomical Region Laterality Modality Other Specimen (Source) Anatomical Collection Method Collection Time Re ceived Time Location / / Volume Laterality 05/04/2020 12:41 AM CDT Narrative 05/05/2020 5:21 PM CDT [employer] Essentio (S) Remote PPM Device Check TRUCKSMITH: 36%, Chronic AFib, taking Eliquis Mode: VVIR Presenting Rhythm: TRUCKSMITH Heart Rate: adequate heart rates per his [...] documented in this encounter Care Teams Assistant Director Of Financial Aid Relationship Specialty Start Date End Date Slava Hernandez PA-C PCP - General Physician Assembler Piano 07/02/18 06/29/[address] [address] documented as of this encounter
--- OUTSIDE RECORDS SUMMARY | 2022-07-26 10:53 | XMS_ITS | Encounter Summary ---
:1940 Author Organization [place] Address [address] [facility] [place] [address] Care Team Providers Name Role Phone Mary Slava Estrella PA-C Primary Care Provider Timothy Smith MD Unavailable Reason for Visit Reason Onset Date Comments Refill Request 08/30/2020 mail order refill se 08-25-2020[facility]----re sent Encounter Details Date Type Department Care Team Description 08/30/[address] [facility] Heart Zarina Smith MD Refill Request (mail [facility] [place] [address] order refill sent [address] [facility] [address] 08-25-2020[facility] claims [address] [place] [address] they dont have it----re [place] [phone] sent) [phone] Social History Tobacco Use Types Packs/Day Years Used Date Smoking Tobacco: Never Smokeless Tobacco: Never Alcohol Use Standard Drinks/Week Comments No 0 (1 standard drink = 0.6 oz pure alcoho l) Sex Assigned at Date Recorded Not on file documented as of this encounter Plan of Treatment Upcoming Encounters Date Type Specialty Care Team Description 08/16/2022 Ancillary Procedure Cardiology Timothy Smith MD [address] [place] [phone] (Wo rk) 08/16/2022 Office Visit Cardiology Timothy Smith MD [address] [place] [address] (Wo rk) documented as of this encounter Visit Diagnoses Diagnosis Paroxysmal atrial fibrillation (H) Atrial fibrillation documented in this encounter Care Teams Bow Rehairer Relationship Specialty Start Date End Date Slava Hernandez, PCP - General Physician Neurodiagnostic Tech 07/02/1806/02 PA-C [facility] [address] [place] [address] Timothy Smith MD Assigned Heart and 07/23/20 [address] Vascular Provider [address] [place] [phone] documented as of this encounter
--- OUTSIDE RECORDS SUMMARY | 2022-07-26 10:53 | XMS_ITS | Encounter Summary ---
:1940 Author Organization [place] Address [facility] [place] [address] Care Team Providers Name Role Phone Slava [...] MD [address] [place] [address] (Wo rk) 08/16/2022 Office Visit Cardiology Timothy Smith MD [address] [place] [address] (Wo rk) documented as of this encounter Visit Diagnoses Not on filedocumented in this encounter Care Teams Tin Stacker Relationship Specialty Start Date End Date Slava Hernandez PA-C PCP - General Physician Preparation Plant Repairer 07/02/18 06/29/21 [facility] [address] [place] [address] documented as of this encounter
--- OUTSIDE RECORDS SUMMARY | 2022-07-26 10:53 | XMS_ITS | Encounter Summary ---
:1940 Author Organization [place] Address [facility] [place] [address] Care Team Providers Name Role Phone Slava [...] [address] [place] [phone] (Wo rk) 08/16/2022 Office Visit Cardiology Timothy Smith MD [address] [place] [phone] (Wo rk) documented as of this encounter Visit Diagnoses Not on filedocumented in this encounter Care Teams Enrichment Teacher Relationship Specialty Start Date End Date Slava Hernandez PA-C PCP - General Physician Halver Machine Operator 07/02/18 06/29/21 [facility] [address] [place] [address] documented as of this encounter
--- OUTSIDE RECORDS SUMMARY | 2022-07-26 10:53 | XMS_ITS | Encounter Summary ---
:1940 Author Organization [place] Address [address] [facility] [place] [address] Care Team Providers Name Role Phone Mary Slava Estrella PA-C Primary Care Provider Encounter Details Date Type Department Care Team Description 10/15/2019 Telephone [facility] Zina Myers, RN [address] [place] [phone] Social History Tobacco Use Types [...] PM CST Thank you for the update. PAPERER HELPER Telephone Encounter - Kitty Myers RN - [...] Will route to Dr. Smith per protocol. PAPERER HELPER documented in this encounter Plan of Treatment Upcoming Encounters Date Type Specialty Care Team Description 08/16/2022 Ancillary Procedure Cardiology Timothy Smith MD [address] [place] [id number] (Wo rk) 08/16/2022 Office Visit Cardiology Timothy Smith MD [address] [place] [phone] (Wo rk) documented as of this encounter Visit Diagnoses Not on filedocumented in this encounter Care Teams Lime Mixer Tender Relationship Specialty Start Date End Date Slava Hernandez PA-C PCP - General Physician Wholesale Representative 07/02/18 06/29/21 [facility] [id number] [place] [address] documented as of this encounter
--- OUTSIDE RECORDS SUMMARY | 2022-07-26 10:53 | XMS_ITS | Encounter Summary ---
:1940 Author Organization [place] Address [facility] [address] Care Team Providers Name Role Phone Slava Hernandez PA-C Primary Care Provider Reason for Visit Reason Onset Date Comments Refill Request 07/11/2019 Eliquis Encounter Details Date Type Department Care Team Description 07/11/2019 Refill [facility] Heart Zarina Smith MD Refill Request (Eliquis) [facility] [place] [address] [place] [id number] [place] [address] [place] [phone] Social History Tobacco Use Types Packs/Day Years [...] [address] [place] [phone] (Wo rk) 08/16/2022 Office Visit Cardiology Timothy Smith MD [address] [place] [phone] (Wo rk) documented as of this encounter Visit Diagnoses Diagnosis Paroxysmal atrial fibrillation (H) Atrial fibrillation documented in this encounter Care Teams Marine Steward Relationship Specialty Start Date End Date Slava Hernandez PA-C PCP - General Physician Sap Bods Developer 07/02/18 06/29/21 [facility] [address] [place] [address] documented as of this encounter
--- OUTSIDE RECORDS SUMMARY | 2022-07-26 10:53 | XMS_ITS | Encounter Summary ---
:1940 Author Organization [place] Address [facility] [place] [address] Care Team Providers Name Role Phone Slava Hernandez PA-C Primary Care Provider Reason for Visit Reason Onset Date Comments Refill Request 02/24/2020 SL NTG Encounter Details Date Type Department Care Team Description 02/24/[address] [facility] Heart [place] Refill Request (SL NTG) Clinic Patt Torres PA-C [address] [facility] [address] [facility] [address] [place] [phone] [place] [phone] (Wo rk) Social History Tobacco Use Types [...] 08/16/2022 Ancillary Procedure Cardiology Timothy Smith MD [address] [place] [phone] (Wo rk) 08/16/2022 Office Visit Cardiology Timothy Smith MD [address] [place] [phone] (Wo rk) documented as of this encounter Visit Diagnoses Diagnosis Coronary artery disease involving [place] coronary artery of [place] heart without angina pectoris documented in this encounter Care Teams Wool And Pelt Grader Relationship Specialty Start Date End Date Slava Hernandez PA-C PCP - General Physician Manager Product Design 07/02/18 06/29/21 [facility] [address] [place] [address] documented as of this encounter
--- OUTSIDE RECORDS SUMMARY | 2022-07-26 10:53 | XMS_ITS | Encounter Summary ---
:1940 Author Organization [place] Address [facility] [place] [address] Care Team Providers Name Role Phone Slava [...] MD [address] [place] [address] (Wo rk) 08/16/2022 Office Visit Cardiology Timothy Smith MD [address] [place] [phone] (Wo rk) documented as of this encounter Visit Diagnoses Not on filedocumented in this encounter Care Teams Oyster Shipper Relationship Specialty Start Date End Date Slava Hernandez PA-C PCP - General Physician Philosophy Specialist 07/02/18 06/29/21 [facility] [address] [place] [address] documented as of this encounter
--- OUTSIDE RECORDS SUMMARY | 2022-07-26 10:53 | XMS_ITS | Encounter Summary ---
:1940 Author Organization [place] Address [address] [facility] [place] [address] Care Team Providers Name Role Phone Slava Hernandez PA-C Primary Care Provider Reason for Referral (Routine) - Closed Specialty Diagnoses / Procedures Referred By Contact Refer red To Contact Diagnoses Persistent atrial fibrillation (H) Ankur Smith MD [address] [employer] [address] [place] [address] Referral ID Status Reason Start Date Expiration Date Visits Requ ested Visits Authorized [id number] Closed 07/07/2020 07/07/2021 1 1 (Routine) - Closed Specialty Diagnoses / Procedures Referred By Contact Refer red To Contact Diagnoses Persistent atrial fibrillation (H) Ankur Smith MD [address] [employer] [address] [place] [address] Referral ID Status Reason Start Date Expiration Date Visits Requ ested Visits Authorized [id number] Closed 07/07/2020 07/07/2021 1 1 Reason for Visit Reason Comments Atrial Fib (Routine) - Closed Specialty Diagnoses / Procedures Referred By Contact Refer red To Contact Diagnoses Persistent atrial fibrillation (H) Ankur Smith MD [address] [place] [address] Referral ID Status Reason Start Date Expiration Date Visits Requ ested Visits Authorized [id number] Closed 06/25/2019 06/24/2020 1 1 Encounter Details Date Type Department Care Team Description 07/07/2020 Office Visit [facility] Ankur Smith MD Persistent atrial Heart [facility] [address] fibrillati on (H) [place] [address] [address] [place], [place] [address] [address] [place], [place] (Work) [address] Social History Tobacco Use [...] scheduled for 1 year. cc: HANK Handley [place] [phone] ANKUR SMITH MD MT: CAITLYN Name: RADHA VILLA MRN: [id number] Account: [id number] : 1940 Service Date: 07/07/2020 Document: [id number] Ankur Smith - 07/07/2020 10:45 AM CDT HPI and Plan: See dictation Orders Placed This Encounter Procedures ??? Follow-Up with Diesel Dinkey Operator ??? Follow-Up with Cardiac Advanced Practice [...] on phone: None Gets together: None Attends alevism service: None Active member of club or [...] MD [address] [place] [phone] documented in this encounter Plan of Treatment Upcoming Encounters Date Type Specialty Care Team Description 08/16/2022 Ancillary Procedure Cardiology Ankur Smith MD [address] [place] [id number] (Fiorella olvera) 08/16/2022 Office Visit Cardiology Ankur Smith MD [address] [place] [phone] (Fiorella olvera) Scheduled Referrals Name Type Priority Associated Diagnoses Order S chedule Follow-Up with Referral Routine Persistent atrial Expected : Diesel Dinkey Operator fibrillation 03/29/20 (Approximate), Expires: 07/27/2022 Follow-Up with Cardiac Referral Routine Persistent atrial Expected: Advanced Practice Provider fibrillation 1 (Approximate), Expires: 11/19/2021 documented as of this encounter Visit Diagnoses Diagnosis Persistent atrial fibrillation (H) Atrial fibrillation documented in this encounter Care Teams Mixing Plant Operator Relationship Specialty Start Date End Date Slava Hernandez PA-C PCP - General Physician Ethics Officer 07/02/18 06/29/[address] [address] documented as of this encounter
--- OUTSIDE RECORDS SUMMARY | 2022-07-26 10:53 | XMS_ITS | Encounter Summary ---
:1940 Author Organization [place] Address [address] [place] [address] Care Team Providers Name Role Phone Slava Hernandez PA-C Primary Care Provider Timothy Smith MD Unavailable Reason for Referral CV Testing (Routine) - Closed Specialty Diagnoses / Procedures Referred By Contact Refer red To Contact Diagnoses Cardiac pacemaker in situ Chris De Leon MD Procedures Cardiac Device Check - In Clinic [address] [place] [address] Referral ID Status Reason Start Date Expiration Date Visits Requ ested Visits Authorized [id number] Closed 11/16/2020 11/16/2021 1 1 FACTURING ASSISTANT Reason for Visit CV Testing (Routine) - Closed Specialty Diagnoses / Procedures Referred By Contact Refer red To Contact Diagnoses Cardiac pacemaker in situ Chris De Leon MD Procedures Cardiac Device Check - Remote [address] [place] [address] Referral ID Status Reason Start Date Expiration Date Visits Requ ested Visits Authorized [id number] Closed 08/03/2020 08/03/2021 1 1 Encounter Details Date Type Department Care Team Description 11/16/2020 Ancillary Procedure [facility] Chris De Leon Cardiac pacemaker in [facility] situ Heart Care [address] [facility] [address] [place] [address] [place] [phone] Social History Tobacco Use Types Packs/Day Years [...] [address] [place] [phone] (Wo rk) 08/16/2022 Office Visit Cardiology Timothy Smith MD [address] [place] [phone] (Wo rk) documented as of this encounter Procedures Procedure Name Priority Date/Time Associated Comments Diagnosis INTERROGATION DEVICE Routine 11/16/2020 11:11 Cardiac pacemake r Results for this EVAL REMOTE PACER UP AM MANUFACTURING ASSISTANT in situ procedu re are in TO 90 DAYS the results section. documented in this encounter Results PM DEVICE PROGRAMMING EVAL, DUAL LEAD PACER (02/16/2021 9:51 AM CDT) Component Value Ref Test Analysis Performed Pathologis t Range Method Time At Signature Date Time [id number] [employer] Interrogation Session Implantable [employer] Pulse Generator Staff Midwife/Apprenticeship Director Implantable L121 ESSENTIO EL [employer] Pulse Generator Model Implantable [id number] [employer] Pulse Generator Serial Number Type In Clinic [facility] Interrogation Session Clinic Name [facility] Implantable Pacemaker [employer] Pulse Generator Type Implantable [id number] [employer] Pulse Generator Implant Date Implantable Lead [facility] RAUL Staff Midwife/Apprenticeship Director Implantable Lead 8TC Tendril MEDTRONI C Model STS Implantable Lead [id number] [employer] Serial Number Implantable Lead [id number] [employer] Implant Date Implantable Lead Bipolar Lead [employer] Polarity Type Implantable Lead UNKNOWN [employer] Location Detail 1 Implantable Lead Right Atrium [employer] Location Implantable Lead [facility] [employer] RAUL Staff Midwife/Apprenticeship Director Implantable Lead 2088TC Tendril MEDTRONI C Model STS Implantable Lead [id number] [employer] Serial Number Implantable Lead [id number] [employer] Implant Date Implantable Lead Bipolar Lead [...] NSVT [employer]TRONIC Statistic Vendor Type Category Episode [id number] [employer] Statistic Total Date Time End Episode 80 [employer]IC Statistic Recent Count Episode [place] [employer]IC Statistic Type Category Episode NSVT [employer]TRONIC Statistic Vendor Type Category Episode SunOct 15 [employer] Statistic Recent 03:43:58 MANUFACTURING ASSISTANT 2019 Date Time Start Episode [id number] [employer] Statistic Recent Date Time End Anatomical Region Laterality Modality Other Specimen (Source) Anatomical Location Collection Method / Collectio n Time Received Time / Laterality Volume 02/16/2021 Narrative 02/21/2021 9:24 AM CDT [employer] Essentio (D) Pacemaker Device Check Patient seen in clinic for device evalua tion and iterative programming. AP: NA ?% ?? SPEEDOMETER MECHANIC: 39 % ?? Mode: VVIR 60-130 ?? [...] UP TO 90 DAYS (11/16/2020 11:11 AM MANUFACTURING ASSISTANT) Component Value Ref Test Analysis Performed Pathologis t Range Method Time At Signature Date Time [id number] [employer] Interrogation Session Implantable [employer] Pulse Generator Staff Midwife/Apprenticeship Director Implantable L121 ESSENTIO EL [employer] Pulse Generator Model Implantable [id number] [employer] Pulse Generator Serial Number Type Remote [employer]IC Interrogation Session Clinic Name [place] [employer] Implantable Pacemaker [employer] Pulse Generator Type Implantable [id number] [employer] Pulse Generator Implant Date Implantable Lead [facility] [employer] RAUL Staff Midwife/Apprenticeship Director Implantable Lead 2087TC Tendril MEDTRONI C Model STS Implantable Lead [id number] [employer] Serial Number Implantable Lead [id number] [employer] Implant Date Implantable Lead Bipolar Lead [employer] Polarity Type Implantable Lead UNKNOWN [employer] Location Detail 1 Implantable Lead Right Atrium [employer] Location Implantable Lead [facility] [employer] RAUL Staff Midwife/Apprenticeship Director Implantable Lead 8TC Tendril MEDTRONI C Model STS Implantable Lead [id number] [employer] Serial Number Implantable Lead [id number] MED[employer]IC [...] 100 % MEDTRONIC Remaining Percentage Brandon Statistic [id number] MEDTRONIC Date Time Start Brandon Statistic MEDTRONIC [...] [place] [employer]TRONIC Statistic Vendor Type Category Episode [id number] [employer] Statistic Recent Date Time Start Episode [id number] [employer]IC Statistic Recent Date Time End Episode [id number] [employer]IC Statistic Recent Date Time Start Episode [id number] [employer] Statistic Recent Date Time End Episode [id number] [employer] Statistic Recent Date Time Start Episode [id number] [employer]TR[employer]IC Statistic Recent Date Time End Episode [id number] [employer]TR[employer]IC Statistic Recent Date Time Start Episode [id number] [employer]TR[employer]IC Statistic Recent Date Time End Episode APM-97 [employer]IC Identifier Episode Type Periodic EGM [employer]IC Category Episode Date [id number] MED[employer]IC Time Episode RVAT-[id number] [employer]IC Identifier Episode Type Other [employer]TRONIC Category Episode Date [id number] MEDTRONIC Time Episode V-1606 MEDTRONIC Identifier Episode Type VT [employer]TRONIC Category Episode Date [id number] [employer]TR[employer]IC Time Episode Duration 20 s MEDTRONIC Episode V-1605 MEDTRONIC Identifier Episode Type VT [employer]TR[employer]IC Category Episode Date [id number] MED[employer]IC Time Episode Duration 14 s MEDTRONIC Episode V-1604 MED[employer]IC Identifier Episode Type VT [employer]TR[employer]IC Category Episode Date [id number] [employer]IC Time Episode Duration 17 s MEDTRONIC Episode V-1603 MEDTRONIC Identifier Episode Type VT MEDTRONIC Category Episode Date [id number] [employer]TR[employer]IC Time Episode Duration 14 s MEDTRONIC Episode V-1602 MEDTRONIC Identifier Episode Type VT MEDTRONIC Category Episode Vendor VT MEDTRONIC Type Category Episode Date [id number] MEDTRONIC Time Episode Duration 29 s MEDTRONIC Episode V-1601 [employer]IC Identifier Episode Type VT MEDTRONIC Category Episode Date [id number] [employer]IC Time Episode Duration 16 s MEDTRONIC Episode V-1600 MEDTRONIC Identifier Episode Type VT MEDTRONIC Category Episode Date [id number] MEDTR[employer]IC Time Episode Duration 15 s MEDTRONIC Episode V-1599 MEDTRONIC Identifier Episode Type VT MEDTRONIC Category Episode Vendor VT MEDTRONIC Type Category Episode Date [id number] MEDTRONIC Time Episode Duration 175 s MEDTRONIC Episode V-1598 MEDTRONIC Identifier Episode Type VT MEDTRONIC Category Episode Date [id number] MEDTR[employer]IC Time Episode Duration 14 s MEDTRONIC Episode V-1597 MEDTRONIC Identifier Episode Type VT MEDTRONIC Category Episode Date [id number] MEDTR[employer]IC Time Episode Duration 14 s MEDTRONIC Episode V-1596 MEDTRONIC Identifier Episode Type VT MEDTRONIC Category Episode Date [id number] MEDTRONIC Time Episode Duration 16 s MEDTRONIC Episode V-1595 MEDTRONIC Identifier Episode Type VT MEDTRONIC Category Episode Date [id number] MEDTRONIC Time Episode Duration 16 s MEDTRONIC Episode V-1592 MEDTRONIC Identifier Episode Type VT MEDTRONIC Category Episode Vendor VT MEDTRONIC Type Category Episode Date [id number] MEDTRONIC Time Episode Duration 129 s MEDTRONIC Episode V-1591 MEDTRONIC Identifier Episode Type VT MEDTRONIC Category Episode Vendor VT MEDTRONIC Type Category Episode Date [id number] MEDTRONIC Time Episode Duration 21 s MEDTRONIC Episode V-1590 MEDTRONIC Identifier Episode Type VT MEDTRONIC Category Episode Vendor VT MEDTRONIC Type Category Episode Date [id number] MEDTRONIC Time Episode Duration 66 s MEDTRONIC Episode V-1585 MEDTRONIC Identifier Episode Type VT [employer]TR[employer]IC Category Episode Vendor [place] [employer]IC Type Category Episode Date [id number] [employer]ONIC Time Episode Duration 67 s [employer]IC Anatomical Region Laterality Modality Other Specimen (Source) Anatomical Collection Method Collection Time Re ceived Time Location / / Volume Laterality 11/16/2020 12:42 AM MANUFACTURING ASSISTANT Narrative 11/22/2020 12:22 PM MANUFACTURING ASSISTANT [employer] Essentio (S) Remote PPM Device Check SPEEDOMETER MECHANIC: 38%, Chronic AFib, taking Eliquis Mode: VVIR Presenting Rhythm: SPEEDOMETER MECHANIC Heart Rate: adequate heart rates per his [...] situ documented in this encounter Care Teams Business Dean Relationship Specialty Start Date End Date Slava Hernandez, PCP - General Physician Laundry Machine Mechanic 07/02/1806/02 PA-C [facility] [address] [place], [place] [phone] Timothy Smith MD Assigned Heart and 07/23/20 [address] [facility] [address] [address] Vascular Provider [address] [place] [address] documented as of this encounter
--- OUTSIDE RECORDS SUMMARY | 2022-07-26 10:53 | XMS_ITS | Encounter Summary ---
:1940 Author Organization [place] Address [address] [facility] [place] [address] Care Team Providers Name Role Phone Slava Hernandez PA-C Primary Care Provider Timothy Smith MD Unavailable Reason for Visit Reason Onset Date Comments Medication Question 02/02/2021 side effects? Encounter Details Date Type Department Care Team Description 02/02/2021 Telephone [facility] [place] Medic ation Question [facility] SIENNA Butler (side eff ects?) Heart Care [address] [place] [address] [address] [place] [address] Social History Tobacco Use Types [...] MD [address] [place] [address] (Wo rk) 08/16/2022 Office Visit Cardiology Timothy Smith MD [address] [place] [address] (Wo rk) documented as of this encounter Visit Diagnoses Not on filedocumented in this encounter Care Teams Section Hand Helper Relationship Specialty Start Date End Date Slava Hernandez, PCP - General Physician Shearing Shed Hand 07/02/1806/02 PAKatie [facility] [address] [place] [address] Timothy Smith MD Assigned Heart and 07/23/20 [address] Vascular Provider [address] [place] [address] documented as of this encounter
--- OUTSIDE RECORDS SUMMARY | 2022-07-26 10:53 | XMS_ITS | Encounter Summary ---
:1940 Author Organization [place] Address [address] [place] [address] Care Team Providers Name Role Phone Slava Hernandez PA-C Primary Care Provider Reason for Referral CV Testing (Routine) - Closed Specialty Diagnoses / Procedures Referred By Contact Refer red To Contact Diagnoses Cardiac pacemaker in situ Basil Guadalupe MD Procedures Cardiac Device Check - Remote [address] [facility] [address] [facility] [address] [place] [address] Referral ID Status Reason Start Date Expiration Date Visits Requ ested Visits Authorized [id number] Closed 10/15/2019 10/14/2020 1 1 PREVENTION COORDINATOR Reason for Visit CV Testing (Routine) - Closed Specialty Diagnoses / Procedures Referred By Contact Refer red To Contact Diagnoses Cardiac pacemaker in situ [facility] Cv Cardiac Services Procedures Cardiac Device Check - In Clinic [address] [facility] [address] [place] [address] Referral ID Status Reason Start Date Expiration Date Visits Requ ested Visits Authorized [id number] Closed 06/25/2019 06/24/2020 1 1 Encounter Details Date Type Department Care Team Description 10/15/[address] [facility] Timothy Smith MD Cardiac pacemaker in [facility] Clinic [address] situ [facility] [address] [address] [place], [place] [address] [address] [place], [place] (Work) [phone] Social History Tobacco Use Types Packs/Day Years [...] [address] [place] [id number] (Wo rk) 08/16/2022 Office Visit Cardiology Timothy Smith MD [address] [place] [id number] (Wo rk) documented as of this encounter Procedures Procedure Name Priority Date/Time Associated Comments Diagnosis PM DEVICE PROGRAMMING Routine 10/15/2019 9:24 AM Cardiac pacem vane Results for this EVAL, DUAL LEAD PACER LOSS PREVENTION COORDINATOR in situ proced ure are in the results section. documented in this encounter Results INTERROGATION DEVICE EVAL REMOTE PACER UP TO 90 DAYS (01/27/2020 7:40 AM CDT) Component Value Ref Test Analysis Performed Pathologis t Range Method Time At Signature Date Time [id number] [facility] Interrogation Session Implantable [employer] Pulse Generator Drawer Waxer Implantable L121 ESSENTIO EL [facility]IC Pulse Generator Model Implantable [id number] [facility] Pulse Generator Serial Number Type Remote [facility] Interrogation Session Clinic Name [facility] Implantable Pacemaker [facility]IC Pulse Generator Type Implantable [id number] [facility] Pulse Generator Implant Date Implantable Lead [facility] Drawer Waxer Implantable Lead 2087TC Tendril MEDTRONI C Model STS Implantable Lead [id number] [facility] Serial Number Implantable Lead [id number] [facility] Implant Date Implantable Lead Bipolar Lead [facility] Polarity Type Implantable Lead UNKNOWN [facility] Location Detail 1 Implantable Lead Right Atrium [facility] Location Implantable Lead [facility] RAUL Drawer Waxer Implantable Lead 2087TC Tendril MEDTRONI C Model STS Implantable Lead [id number] [facility] Serial Number Implantable Lead [id number] MEDTRONIC [...] 100 % [facility]IC Remaining Percentage Brandon Statistic [id number] [facility]IC Date Time Start Brandon Statistic [id number] [facility]IC Date Time End [place] Statistic 0 [...] [place] [facility] Statistic Vendor Type Category Episode [id number] [facility]IC Statistic Recent Date Time Start Episode [id number] [facility]IC Statistic Recent Date Time End Episode [id number] [facility] Statistic Recent Date Time Start Episode [id number] [facility]IC Statistic Recent Date Time End Episode [id number] [facility]IC Statistic Recent Date Time Start Episode [id number] [facility] Statistic Recent Date Time End Episode [id number] [facility] Statistic Recent Date Time Start Episode [id number] [facility]IC Statistic Recent Date Time End Episode APM-94 [facility] Identifier Episode Type Periodic EGM [facility] Category Episode Date [id number] [facility]IC Time Episode [id number]-[id number] [facility]IC Identifier Episode Type Other MEDTRONIC Category Episode Date [id number] MED[facility]IC Time Episode V-1550 [facility]IC Identifier Episode Type [place] [facility]IC Category Episode Date [id number] [facility] Time Episode Duration 16 s MEDTRONIC Episode V-1549 MED[facility]ONIC Identifier Episode Type VT [facility]IC Category Episode Date [id number] [facility]IC Time Episode Duration 26 s MEDTRONIC Episode V-1548 MED[facility]IC Identifier Episode Type VT [facility]TR[facility]IC Category Episode Date [id number] MED[facility]IC Time Episode Duration 28 s MEDTRONIC Episode V-1547 MEDTRONIC Identifier Episode Type VT [facility]TR[facility]IC Category Episode Date [id number] [facility]IC Time Episode Duration 12 s MEDTR[facility]IC Episode V-1546 MEDTRONIC Identifier Episode Type VT [facility]TR[facility]IC Category Episode Date [id number] [facility]IC Time Episode Duration 14 s MEDTRONIC Episode V-1545 MEDTRONIC Identifier Episode Type VT MEDTRONIC Category Episode Date [id number] MEDTR[facility]IC Time Episode Duration 21 s MEDTRONIC Episode V-1544 MEDTRONIC Identifier Episode Type VT MEDTRONIC Category Episode Date [id number] [facility]IC Time Episode Duration 14 s MEDTRONIC Episode V-1543 MEDTRONIC Identifier Episode Type VT MEDTRONIC Category Episode Date [id number] [facility]IC Time Episode Duration 37 s MEDTRONIC Episode V-1542 MEDTRONIC Identifier Episode Type VT MEDTRONIC Category Episode Date [id number] [facility]TRONIC Time Episode Duration 14 s MEDTR[facility]IC Episode V-1541 MED[facility]IC Identifier Episode Type [place] [facility] Category Episode Date [id number] [facility] Time Episode Duration 23 s [facility] Anatomical Region Laterality Modality Other Specimen (Source) Anatomical Collection Method Collection Time Re ceived Time Location / / Volume Laterality 01/27/2020 12:41 AM CDT Narrative 02/10/2020 3:26 PM CDT [employer] Essentio (S) Remote PPM Device Check TREE KILLER: 35%, Chronic AFib, taking Eliquis Mode: VVIR Presenting Rhythm: TREE KILLER Heart Rate: adequate heart rates per his [...] EVAL, DUAL LEAD PACER (10/15/2019 9:24 AM LOSS PREVENTION COORDINATOR) Component Value Ref Test Analysis Performed Pathologis t Range Method Time At Signature Date Time [id number] [facility] Interrogation Session Implantable [employer] Pulse Generator Drawer Waxer Implantable L121 ESSENTIO EL [facility] Pulse Generator Model Implantable [id number] [facility] Pulse Generator Serial Number Type In Clinic [facility] Interrogation Session Clinic Name [facility] Implantable Pacemaker MED[facility]IC Pulse Generator Type Implantable [id number] [facility] Pulse Generator Implant Date Implantable Lead [facility]UL Drawer Waxer Implantable Lead 2088TC Tendril MEDTRONI C Model STS Implantable Lead [id number] [facility] Serial Number Implantable Lead 20160204 MED[facility]IC Implant Date Implantable Lead Bipolar Lead [facility] Polarity Type Implantable Lead UNKNOWN [facility] Location Detail 1 Implantable Lead Right Atrium [facility] Location Implantable Lead [facility] RAUL Drawer Waxer Implantable Lead 2088TC Tendril MEDTRONI C Model STS Implantable Lead [id number] [facility] Serial Number Implantable Lead [id number] MEDTRONIC Implant Date Implantable Lead Bipolar Lead [...] NSVT [facility]TRONIC Statistic Vendor Type Category Episode [id number] [facility]IC Statistic Total Date Time End Episode 97 [facility]IC Statistic Recent Count Episode VT [facility]IC Statistic Type Category Episode NSVT [facility] Statistic Vendor Type Category Episode [id number] [facility] Statistic Recent Date Time Start Episode [id number] [facility] Statistic Recent Date Time End Anatomical Region Laterality Modality Other Specimen (Source) Anatomical Collection Method Collection Time Re ceived Time Location / / Volume Laterality 10/15/2019 3:46 PM LOSS PREVENTION COORDINATOR Narrative 10/16/2019 10:41 AM LOSS PREVENTION COORDINATOR [employer] Accolade (D) Pacemaker Device Check AP: <1 ?% ?? TREE KILLER: 61 % ?? Mode: VVIR 60-130 (was [...] situ documented in this encounter Care Teams Neon Tube Bender Relationship Specialty Start Date End Date Slava Hernandez PAIlanaC PCP - General Physician Spreader Operator 07/02/18 06/29/[address] [address] documented as of this encounter
--- OUTSIDE RECORDS SUMMARY | 2022-07-26 10:53 | XMS_ITS | Encounter Summary ---
:1940 Author Organization [place] Address [address] [facility] [place] [address] Care Team Providers Name Role Phone Slava Hernandez PA-C Primary Care Provider Reason for Visit CV Testing (Routine) - Closed Specialty Diagnoses / Procedures Referred By Contact Refer red To Contact Diagnoses Cardiac pacemaker in situ Basil Guadalupe MD Procedures Cardiac Device Check - Remote [address] [place] [address] [place] [id number] Referral ID Status Reason Start Date Expiration Date Visits Requ ested Visits Authorized [id number] Closed 10/15/2019 10/14/2020 1 1 Encounter Details Date Type Department Care Team Description 01/27/2020 Ancillary Procedure [facility] Basil Guadalupe ardiac pacemaker in [facility] MD [place] situ [facility] [address] [facility] [address] [place] [address] [facility] [address] [place] [address] [place] [phone] (Work) [phone] Social History Tobacco Use Types Packs/Day Years [...] [address] [place] [id number] (Wo rk) 08/16/2022 Office Visit Cardiology Timothy Smith MD [address] [place] [id number] (Wo rk) documented as of this encounter [...] Range Method Time At Signature Date Time [id number] [facility] Interrogation Session Implantable [employer]IC Pulse Generator Cutter Tender Implantable L121 ESSENTIO EL [facility]IC Pulse Generator Model Implantable 467642 MED[facility]IC Pulse Generator Serial Number Type Remote [facility] Interrogation Session [facility] Im[facility] Pacemaker [facility]IC Pulse Generator Type Implantable [id number] MED[facility]ONIC Pulse Generator Implant Date Implantable Lead [facility] RA[facility] Cutter Tender Implantable Lead 2087TC Tendril MEDTRONI C Model STS Implantable Lead [id number] [facility] Serial Number Implantable Lead 20160204 MEDTRONIC Implant Date Implantable Lead Bipolar Lead [facility] Polarity Type Implantable Lead UNKNOWN [facility] Location Detail 1 Implantable Lead Right Atrium [facility] Location Implantable Lead [facility]UL Cutter Tender Implantable Lead 2087TC Tendril MEDTRONI C Model STS Implantable Lead [id number] [facility] Serial Number Implantable Lead [id number] MEDTRONIC Implant Date Implantable Lead Bipolar Lead [...] MEDTRONIC Pacing Threshold Pulse Width Battery Date [id number] [facility]IC Time of Measurements Battery Status Beginning of MEDTR[facility]IC Service Battery 144 mo MEDTRONIC Remaining Longevity Battery 100 % [facility]TRONIC Remaining Percentage Brandon Statistic [id number] [facility]TRONIC Date Time Start Brandon Statistic [id number] [facility]ONIC Date Time End Brandon Statistic 0 [...] [place] [facility]IC Statistic Vendor Type Category Episode [id number] [facility]TRONIC Statistic Recent Date Time Start Episode [id number] [facility]TR[facility]IC Statistic Recent Date Time End Episode [id number] [facility]IC Statistic Recent Date Time Start Episode [id number] [facility]TR[facility]IC Statistic Recent Date Time End Episode [id number] MEDTRONIC Statistic Recent Date Time Start Episode [id number] MEDTRONIC Statistic Recent Date Time End Episode [id number] [facility]TRONIC Statistic Recent Date Time Start Episode [id number] [facility]TRONIC Statistic Recent Date Time End Episode APM-94 [facility]IC Identifier Episode Type Periodic EGM [facility]IC Category Episode Date [id number] MEDTRONIC Time Episode RVAT-2805 MEDTRONIC Identifier Episode Type Other MEDTRONIC Category Episode Date [id number] MEDTRONIC Time Episode V-1550 MEDTRONIC Identifier Episode Type [place] MEDTRONIC Category Episode Date [id number] MEDTRONIC Time Episode Duration 16 s MEDTRONIC Episode V-1549 MEDTRONIC Identifier Episode Type VT MEDTRONIC Category Episode Date [id number] MEDTRONIC Time Episode Duration 26 s MEDTRONIC Episode V-1548 MEDTRONIC Identifier Episode Type VT MEDTRONIC Category Episode Date [id number] MEDTRONIC Time Episode Duration 28 s MEDTRONIC Episode V-1547 MEDTRONIC Identifier Episode Type [place] MEDTRONIC Category Episode Date [id number] MEDTRONIC Time Episode Duration 12 s MEDTRONIC Episode V-1546 MEDTRONIC Identifier Episode Type VT MEDTRONIC Category Episode Date [id number] MEDTRONIC Time Episode Duration 14 s MEDTRONIC Episode V-1545 MEDTRONIC Identifier Episode Type VT MEDTRONIC Category Episode Date [id number] MEDTRONIC Time Episode Duration 21 s MEDTRONIC Episode V-1544 MEDTRONIC Identifier Episode Type VT MEDTRONIC Category Episode Date [id number] MEDTRONIC Time Episode Duration 14 s MEDTRONIC Episode V-1543 MEDTRONIC Identifier Episode Type VT MEDTRONIC Category Episode Date [id number] MEDTRONIC Time Episode Duration 37 s MEDTRONIC Episode V-1542 MEDTRONIC Identifier Episode Type VT MEDTRONIC Category Episode Date [id number] MEDTRONIC Time Episode Duration 14 s MEDTRONIC Episode V-1541 MEDTRONIC Identifier Episode Type VT MEDTRONIC Category Episode Date [id number] [facility]IC Time Episode Duration 23 s [facility] Anatomical Region Laterality Modality Other Specimen (Source) Anatomical Collection Method Collection Time Re ceived Time Location / / Volume Laterality 01/27/2020 12:41 AM CDT Narrative 02/10/2020 3:26 PM CDT [employer] Essentio (S) Remote PPM Device Check RUBBER TESTER: 35%, Chronic AFib, taking Eliquis Mode: VVIR Presenting Rhythm: RUBBER TESTER Heart Rate: adequate heart rates per his [...] situ documented in this encounter Care Teams Merchandising Coordinator Relationship Specialty Start Date End Date Slava Hernandez, PAIlanaC PCP - General Physician Will Call Clerk 07/02/18 06/29/21 [facility] [address] [place] [address] documented as of this encounter
--- OUTSIDE RECORDS SUMMARY | 2022-07-26 10:54 | XMS_ITS | Encounter Summary ---
:1940 Author Organization [place] Address [address] [facility] [place] [address] Care Team Providers Name Role Phone Slava Hernandez PA-C Primary Care Provider Reason for Visit CV Testing (Routine) - Closed Specialty Diagnoses / Procedures Referred By Contact Refer red To Contact Diagnoses Cardiac pacemaker in situ [facility] Cv Cardiac Services Procedures Cardiac Device Check - Remote [address] [facility] [address] [place] [address] Referral ID Status Reason Start Date Expiration Date Visits Requ ested Visits Authorized [id number] Closed 01/23/2019 01/23/2020 1 1 Encounter Details Date Type Department Care Team Description 06/25/2019 Ancillary Procedure [facility] Bsail Guadalupe ardiac pacemaker in [facility] MD Tawanda situ Heart Care [address] [facility] [address] [facility] [address] [place] [address] [place] [phone] (Work) [phone] Social History Tobacco Use Types Packs/Day Years Used Date Smoking Tobacco: Never Smokeless Tobacco: Never Alcohol Use Standard Drinks/Week Comments No 0 (1 standard drink = 0.6 oz pure alcoho l) Sex Assigned at Date Recorded Not on file documented as of this encounter Plan of Treatment Upcoming Encounters Date Type Specialty Care Team Description 08/16/2022 Ancillary Procedure Cardiology Timothy Smith MD [address] [place] [id number] (Wo rk) 08/16/2022 Office Visit Cardiology Timothy Smith MD [address] [place] [address] (Wo rk) documented as of this encounter [...] Range Method Time At Signature Date Time [id number] [facility] Interrogation Session Implantable [place] [employer] Pulse Generator Cartoon Artist Implantable L121 ESSENTIO EL [facility]IC Pulse Generator Model Implantable 832905 MEDTR[facility]IC Pulse Generator Serial Number Type Remote [facility] Interrogation Session Clinic Name [facility] Implantable Pacemaker MEDTRONIC Pulse Generator Type Implantable [id number] MEDTRONIC Pulse Generator Implant Date Implantable Lead [facility] RAUL Cartoon Artist Implantable Lead 2088TC Tendril MEDTRONI C Model STS Implantable Lead [id number] [facility]IC Serial Number Implantable Lead 23845092 MEDTRONIC Implant Date Implantable Lead Bipolar Lead [facility]IC Polarity Type Implantable Lead UNKNOWN [facility] Location Detail 1 Implantable Lead Right Atrium [facility] Location Implantable Lead [facility] RAUL Cartoon Artist Implantable Lead 2088TC Tendril MEDTRONI C Model STS Implantable Lead [id number] [facility] Serial Number Implantable Lead [id number] MED[facility]IC Implant Date Implantable Lead Bipolar Lead [...] MEDTRONIC Pacing Threshold Pulse Width Battery Date 00400473240632 [facility]IC Time of Measurements Battery Status Beginning of MEDTRONIC Service Battery 108 mo [facility]IC Remaining Longevity Battery 100 % [facility]IC Remaining Percentage Brandon Statistic [id number] [facility]IC Date Time Start Brandon Statistic [id number] [facility]IC Date Time End Brandon Statistic 0 % [facility]IC RA Percent Paced Brandon Statistic 62 % [facility]IC RV Percent Paced Atrial Tachy [id number] MEDTRONIC Statistic Date Time Start Atrial Tachy [id number] [facility]IC Statistic Date Time End Atrial Tachy 100 % MEDTRONIC Statistic AT/AF [place] Percent Episode 5 [facility]TR[facility]IC Statistic Recent Count [...] [place] MEDTRONIC Statistic Vendor Type Category Episode [id number] [facility]TRONIC Statistic Recent Date Time Start Episode [id number] [facility]TRONIC Statistic Recent Date Time End Episode [id number] MEDTRONIC Statistic Recent Date Time Start Episode [id number] [facility]TR[facility]IC Statistic Recent Date Time End Episode [id number] [facility]TRONIC Statistic Recent Date Time Start Episode [id number] MEDTRONIC Statistic Recent Date Time End Episode [id number] MEDTRONIC Statistic Recent Date Time Start Episode [id number] MEDTRONIC Statistic Recent Date Time End Episode APM-92 [facility]IC Identifier Episode Type Periodic EGM [facility]IC Category Episode Date [id number] MEDTRONIC Time Episode RVAT-2151 MED[facility]IC Identifier Episode Type Other MEDTRONIC Category Episode Date [id number] MEDTRONIC Time Episode ATR-6510 MEDTRONIC Identifier Episode Type AT/AF [facility]IC Category Episode Date [id number] MEDTRONIC Time Episode V-1530 MEDTRONIC Identifier Episode Type [place] MEDTRONIC Category Episode Date [id number] MEDTRONIC Time Episode Duration 15 s MEDTRONIC Episode V-1529 MEDTRONIC Identifier Episode Type [place] MEDTRONIC Category Episode Date [id number] MEDTRONIC Time Episode Duration 14 s MEDTRONIC Episode V-1528 MEDTRONIC Identifier Episode Type [place] MEDTRONIC Category Episode Date [id number] MEDTRONIC Time Episode Duration 15 s MEDTRONIC Episode V-1527 MEDTRONIC Identifier Episode Type VT MEDTRONIC Category Episode Date [id number] MEDTRONIC Time Episode Duration 14 s MEDTRONIC Episode V-1526 MEDTRONIC Identifier Episode Type VT MEDTRONIC Category Episode Date [id number] MEDTRONIC Time Episode Duration 14 s MEDTRONIC Episode V-1525 MEDTRONIC Identifier Episode Type VT MEDTRONIC Category Episode Date [id number] MEDTRONIC Time Episode Duration 15 s MEDTRONIC Episode V-1524 MEDTRONIC Identifier Episode Type VT MEDTRONIC Category Episode Date [id number] MEDTRONIC Time Episode Duration 40 s MEDTRONIC Episode V-1523 MEDTRONIC Identifier Episode Type VT MEDTRONIC Category Episode Date [id number] MEDTRONIC Time Episode Duration 16 s MEDTRONIC Episode V-1522 MEDTRONIC Identifier Episode Type VT MEDTRONIC Category Episode Date [id number] MEDTRONIC Time Episode Duration 15 s MEDTRONIC Episode V-1521 MEDTRONIC Identifier Episode Type [place] MEDTRONIC Category Episode Date [id number] MEDTRONIC Time Episode Duration 14 s MEDTRONIC Episode ATR-6509 MEDTRONIC Identifier Episode Type AT/AF [facility]IC Category Episode Date [id number] [facility] Time Episode Duration 1,020,750 s MEDTRONIC Episode ATR-6508 MEDTRONIC Identifier Episode Type AT/AF [facility]IC Category Episode Date [id number] [facility]IC Time Episode Duration 2,246,835 s MEDTRONIC Episode ATR-6507 MEDTRONIC Identifier Episode Type AT/AF [facility]IC Category Episode Date [id number] [facility]IC Time Episode Duration 30 s [facility] Anatomical Region Laterality Modality Other Specimen (Source) Anatomical Collection Method Collection Time Re ceived Time Location / / Volume Laterality 06/25/2019 5:40 AM CDT Narrative 07/01/2019 8:21 AM [email or web address] [email or web address] L121 Essentio EL (D) Remote PPM Device CheckAP: 0%BUTCHER ASSISTANT: 62%Mode: DDDRPresenting Rhythm: Afib wit h BUTCHER ASSISTANT & VSHeart Rate: adequate heart rates per [...] situ documented in this encounter Care Teams Melangeur Operator Relationship Specialty Start Date End Date Slava Hernandez PA-C PCP - General Physician Car Groomer 07/02/18 06/29/[address] [address] documented as of this encounter
--- OUTSIDE RECORDS SUMMARY | 2022-07-26 10:54 | XMS_ITS | Encounter Summary ---
:1940 Author Organization [place] Address [address] [place] [address] Care Team Providers Name Role Phone Slava Hernandez PA-C Primary Care Provider Reason for Visit CV Testing - Closed Specialty Diagnoses / Procedures Referred By Contact Refer red To Contact Diagnoses Syncope and collapse Steven aCnchola, Procedures Cardiac Device Check - Remote [address] [facility] [address] [place] [address] Referral ID Status Reason Start Date Expiration Date Visits Requ ested Visits Authorized [id number] Closed 12/10/2018 12/10/2019 1 1 Encounter Details Date Type Department Care Team Description 03/18/2019 Ancillary [facility] Steven Canchola Sync ope and Procedure [facility] MD Jose collapse [facility] [address] [facility] [address] [facility] [address] [place] [address] [place], [place] [phone] (Wo rk) [address] [phone] Social History Tobacco Use Types Packs/Day Years Used Date Smoking Tobacco: Never Smokeless Tobacco: Never Alcohol Use Standard Drinks/Week Comments No 0 (1 standard drink = 0.6 oz pure alcoho l) Sex Assigned at Date Recorded Not on file documented as of this encounter Plan of Treatment Upcoming Encounters Date Type Specialty Care Team Description 08/16/2022 Ancillary Procedure Cardiology Timothy Smith MD [address] [place] [address] (Wo rk) 08/16/2022 Office Visit Cardiology Timothy Smith MD [address] [place] [address] (Wo rk) documented as of this encounter [...] Range Method Time At Signature Date Time [id number] MEDTRONIC Interrogation Session Implantable [employer] MEDTRONIC Pulse Generator Wildlife Control Agent Implantable L121 ESSENTIO EL MEDTRONIC Pulse Generator Model Implantable [id number] MEDTRONIC Pulse Generator Serial Number Type Remote MEDTRONIC Interrogation Session Clinic Name [place] MEDTRONIC Implantable Pacemaker MEDTRONIC Pulse Generator Type Implantable [id number] MEDTRONIC Pulse Generator Implant Date Implantable Lead [facility] MEDTRO RAUL Wildlife Control Agent Implantable Lead 2088TC Tendril MEDTRONI C Model STS Implantable Lead [id number] MEDTRONIC Serial Number Implantable Lead [id number] MEDTRONIC Implant Date Implantable Lead Bipolar Lead MEDTRONIC Polarity Type Implantable Lead UNKNOWN MEDTRONIC Location Detail 1 Implantable Lead Right Atrium [employer]IC Location Implantable Lead [facility] [employer]O RAUL Wildlife Control Agent Implantable Lead 2088TC Tendril MEDTRONI C Model STS Implantable Lead [id number] MEDTRONIC Serial Number Implantable Lead [id number] MEDTRONIC [...] MEDTRONIC Pacing Threshold Pulse Width Battery Date [id number] MEDTRONIC Time of Measurements Battery Status Beginning of MEDTRONIC Service Battery 114 mo MEDTRONIC Remaining Longevity Battery 100 % MEDTRONIC Remaining Percentage Brandon Statistic [id number] MEDTRONIC Date Time Start Brandon Statistic [id number] MEDTRONIC Date Time End Brandon Statistic 0 % MEDTRONIC RA Percent Paced Brandon Statistic 60 % MEDTRONIC RV Percent Paced Atrial Tachy [id number] MEDTRONIC Statistic Date Time Start Atrial Tachy [id number] MEDTRONIC Statistic Date Time End Atrial Tachy 100 % MEDTRONIC Statistic AT/AF [place] Percent Episode 1 MEDTRONIC Statistic Recent Count [...] [place] MEDTRONIC Statistic Vendor Type Category Episode [id number] MEDTRONIC Statistic Recent Date Time Start Episode [id number] MEDTRONIC Statistic Recent Date Time End Episode [id number] MEDTRONIC Statistic Recent Date Time Start Episode [id number] MEDTRONIC Statistic Recent Date Time End Episode [id number] MEDTRONIC Statistic Recent Date Time Start Episode [id number] MEDTRONIC Statistic Recent Date Time End Episode [id number] MEDTRONIC Statistic Recent Date Time Start Episode [id number] MEDTRONIC Statistic Recent Date Time End Episode APM-91 MEDTRONIC Identifier Episode Type Periodic EGM MEDTRONIC Category Episode Date [id number] MEDTRONIC Time Episode [id number]-1947 MEDTRONIC Identifier Episode Type Other MEDTRONIC Category Episode Date [id number] MEDTRONIC Time Episode V-1456 MEDTRONIC Identifier Episode Type [place] MEDTRONIC Category Episode Date [id number] MEDTRONIC Time Episode Duration 22 s MEDTRONIC Episode V-1455 MEDTRONIC Identifier Episode Type SVT MEDTRONIC Category Episode Vendor SVT MEDTRONIC Type Category Episode Date [id number] MEDTRONIC Time Episode Duration 110 s MEDTRONIC Episode V-1454 MEDTRONIC Identifier Episode Type [place] MEDTRONIC Category Episode Date [id number] MEDTRONIC Time Episode Duration 15 s MEDTRONIC Episode V-1453 MEDTRONIC Identifier Episode Type VT MEDTRONIC Category Episode Date [id number] MEDTRONIC Time Episode Duration 21 s MEDTRONIC Episode V-1452 MEDTRONIC Identifier Episode Type VT MEDTRONIC Category Episode Date [id number] MEDTRONIC Time Episode Duration 21 s MEDTRONIC Episode V-1451 MEDTRONIC Identifier Episode Type VT MEDTRONIC Category Episode Date [id number] MEDTRONIC Time Episode Duration 15 s MEDTRONIC Episode V-1450 MEDTRONIC Identifier Episode Type VT MEDTRONIC Category Episode Date [id number] MEDTRONIC Time Episode Duration 17 s MEDTRONIC Episode V-1449 MEDTRONIC Identifier Episode Type VT MEDTRONIC Category Episode Date [id number] MEDTRONIC Time Episode Duration 13 s MEDTRONIC Episode V-1448 MEDTRONIC Identifier Episode Type [place] MEDTRONIC Category Episode Date [id number] MEDTRONIC Time Episode Duration 19 s MEDTRONIC Episode ATR-6506 MEDTRONIC Identifier Episode Type AT/AF MEDTRONIC Category Episode Date [id number] MEDTRONIC Time Episode V-1447 MEDTRONIC Identifier Episode Type VT MEDTRONIC Category Episode Date [id number] MEDTRONIC Time Episode Duration 17 s MEDTRONIC Episode V-1446 MEDTRONIC Identifier Episode Type VT MEDTRONIC Category Episode Date [id number] MEDTRONIC Time Episode Duration 14 s MEDTRONIC Anatomical Region Laterality Modality Other Specimen (Source) Anatomical Collection Method Collection Time Re ceived Time Location / / Volume Laterality 03/18/2019 5:41 AM CDT Narrative 03/19/2019 2:34 PM CDT [employer]calc Scientific L121 Erwino EL (D) Remote PPM Device CheckAP: 0%TRIPOLER: 60%Mode: DDDRPresenting Rhythm: Chronic Afib and VPHeart [...] collapse documented in this encounter Care Teams Head Shipper Relationship Specialty Start Date End Date Slava Hernandez PA-C PCP - General Physician Power Grader Operator 07/02/18 06/29/21 [place] [address] documented as of this encounter
--- OUTSIDE RECORDS SUMMARY | 2022-07-26 10:54 | XMS_ITS | Encounter Summary ---
:1940 Author Organization [place] Address [facility] [place] [address] Care Team Providers Name Role Phone Slava [...] MD [address] [place] [address] (Wo rk) 08/16/2022 Office Visit Cardiology Timothy Smith MD [address] [place] [address] (Wo rk) documented as of this encounter Visit Diagnoses Not on filedocumented in this encounter Care Teams Bulk Intake Worker Relationship Specialty Start Date End Date Slava Hernandez PA-C PCP - General Physician Surgeon Chief 07/02/18 06/29/21 [facility] [address] [place] [address] documented as of this encounter
--- OUTSIDE RECORDS SUMMARY | 2022-07-26 10:54 | XMS_ITS | Encounter Summary ---
:1940 Author Organization [place] Address [address] [place] [address] Care Team Providers Name Role Phone Slava Hernandez PA-C Primary Care Provider Reason for Visit Reason Comments CORE Enrollment Encounter Details Date Type Department Care Team Description 02/03/2019 Office Visit [facility] Arron Johnson APRN TELEPHONE SURVEYOR [address] [place] [address] Chronic systolic Heart Clinic Lina Noriega APRN TELEPHONE SURVEYOR [address] [facility] [address] [place], [place] [address] congestive heart Mason failure (H) [address] [facility] [address] [place] [address] Social History Tobacco Use Types [...] for any questions or concerns Mon-Fri 8am-4pm: [phone] For concerns after hours: [phone] Medication changes: No changes Plan from today: [...] 3. Sinus node dysfunction: Status post dual-chamber [employer] pacemaker 01/2016. 4. Coronary disease: Status [...] APRN, AQUILINO [place]: PERLITA Name: RADHA VILLA MRN: [id number] Account: [id number] : 1940 Service Date: 02/03/2019 Document: [id number] Lina Noriega APRN CNP - 02/03/2019 10:50 AM CDT HPI and Plan: See [id number] No orders of the defined types were [...] on phone: None Gets together: None Attends confucianism service: None Active member of club or organization: None Attends meetings of clubs or organizations: None Relationship status: None ??? Intimate partner violence: Fear of current or ex partner: None Emotionally abused: None Physically abused: None Forced sexual activity: None Other Topics Concern ??? Parent/sibling w/ CABG, [place] or angioplasty before 65F 55M? No ??? [...] Oriented x 3 CC Elda Johnson APRN TELEPHONE SURVEYOR [address] [place] [address] documented in this encounter Plan of Treatment Upcoming Encounters Date Type Specialty Care Team Description 08/16/2022 Ancillary Procedure Cardiology Timothy Smith MD [address] [place] [address] (Wo rk) 08/16/2022 Office Visit Cardiology Timothy Smith MD [address] [place] [address] (Wo rk) documented as of this encounter Visit Diagnoses Diagnosis Chronic systolic congestive heart failur e (H) Chronic systolic heart failure documented in this encounter Care Teams Tax Processor Relationship Specialty Start Date End Date Slava Hernandez PA-C PCP - General Physician Director Credit Risk 07/02/18 06/29/[address] [address] documented as of this encounter
--- OUTSIDE RECORDS SUMMARY | 2022-07-26 10:54 | XMS_ITS | Encounter Summary ---
:1940 Author Organization [place] Address [facility] 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) [facility] [address] [place] [address] [place] [address] [phone] Social History Tobacco Use Types Packs/Day Years Used Date Smoking Tobacco: Never Smokeless Tobacco: Never Alcohol Use Standard Drinks/Week Comments No 0 (1 standard drink = 0.6 oz pure alcoho l) Sex Assigned at Date Recorded Not on file documented as of this encounter Last Filed Vital Signs Vital Sign Reading Time Taken Comments Blood Pressure 104/61 11/28/2018 10:40 AM [facility] Pulse 54 11/28/2018 10:40 AM [facility] Temperature - - Respiratory Rate - - Oxygen Saturation - - Inhaled Oxygen Concentration - - Weight 140.6 kg (310 lb) 11/28/2018 10:40 AM [facility] Height 180.3 cm (5' 10.98) 11/28/2018 10:40 AM [facility] Body Mass Index 43.26 11/28/2018 10:40 AM [facility] documented in this encounter Progress Notes Alex Elda Montoya, FLACO COAT JOINER LOCKSTITCH - 11/28/2018 10:50 AM CST HPI: Haris [...] age++) 4. Sinus node dysfunction s/p dual-chamber [employer] pacemaker 01/2016. 5. Coronary disease status [...] patient declined. Diagnostics: EKG (11/15/2018) revealed intermittent ASSISTANT PRODUCER @ 76 bpm with 2 PVCs of [...] any questions or concerns. Elda Johnson APRN, COAT JOINER LOCKSTITCH This note was completed in part using [employer] voice recognition software. Although reviewed after completion, [...] on phone: None Gets together: None Attends lutheran service: None Active member of club or organization: None Attends meetings of clubs or organizations: None Relationship status: None ??? Intimate partner violence: Fear of current or ex partner: None Emotionally abused: None Physically abused: None Forced sexual activity: None Other Topics Concern ??? Parent/sibling w/ CABG, [place] or angioplasty before 65F 55M? No ??? [...] No referring provider defined for this encounter. [facility] documented in this encounter Plan of Treatment Upcoming Encounters Date Type Specialty Care Team Description 08/16/2022 Ancillary Procedure Cardiology Timothy Smith MD [address] [place] [address] (Fiorella olvera) 08/16/2022 Office Visit Cardiology Timothy Smith MD [address] [place] [address] (Fiorella olvera) documented as of this encounter Results (ABNORMAL) Basic metabolic panel (12/12/2018 9:12 AM CDT) [facility] Signature Sodium 143 133 - 144 12/12/2018 [place] mmol/L 9:51 AM [facility] Potassium 4.2 3.4 - 5.3 12/12/2018 [place] mmol/L 9:51 AM [facility] Chloride 106 94 - 109 12/12/2018 [place] mmol/L 9:51 AM [facility] Carbon Dioxide 31 20 - 32 12/12/2018 [place] mmol/L 9:56 AM [facility] Anion Gap 6 3 - 14 12/12/2018 [place] mmol/L 9:56 AM [facility] Glucose 101 (H) 70 - 99 12/12/2018 [place] mg/dL 9:56 AM [facility] Urea Nitrogen 55 (H) 7 - 30 12/12/2018 [place] mg/dL 9:56 AM [facility] Creatinine 2.20 (H) 0.66 - 12/12/2018 [facility] 1.25 mg/dL 9:56 AM [facility] GFR Estimate 27 (L) >60 12/12/2018 [place] mL/min/{1. 9:56 AM [facility] 73_m2} [facility] Comment: Non GFR Calc Starting 09/17/2018, serum creatinine ba sed estimated GFR (eGFR) will be calculated using the Chronic Kidney Dise [facility] Epidemiology Collaboration (CKD-EPI) equation. GFR Estimate If 32 (L) >60 mL/min/{1.73_m2} 12/12/2018 9: 56 AM [facility] Comment: GFR Calc Starting 09/17/2018, serum creatinine ba sed estimated GFR (eGFR) will be calculated using the Chronic Kidney Dise [facility] Epidemiology Collaboration (CKD-EPI) equation. Calcium 8.8 8.5 - 10.1 mg/dL 12/12/2018 9:56 AM [facility] Specimen Anatomical Collection Method Collection Time Receive d Time (Source) Location / / Volume Laterality Blood specimen 12/12/2018 9:12 AM 019 9:14 (specimen) CDT AM CDT Elda Johnson APRN COAT JOINER LOCKSTITCH LAB - BLOOD ORDERABL ES Performing Organization Address City/State/ZIP Code Phon e Number 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
--- OUTSIDE RECORDS SUMMARY | 2022-07-26 10:54 | XMS_ITS | Encounter Summary ---
:1940 Author Organization [place] Address [address] [facility] [place] [address] Care Team Providers Name Role Phone Slava Hernandez PA-C Primary Care Provider Reason for Referral CV Testing (Routine) - Closed Specialty Diagnoses / Procedures Referred By Contact Refer red To Contact Diagnoses Cardiac pacemaker in situ [facility] Cv Cardiac Services Procedures Cardiac Device Check - Remote [address] [facility] [address] [place] [address] Referral ID Status Reason Start Date Expiration Date Visits Requ ested Visits Authorized [id number] Closed 01/23/2019 01/23/2020 1 1 Encounter Details Date Type Department Care Team Description 01/23/[address] [facility] Kitty Myers, Cardi ac pacemaker in [facility] RN situ (Ria ch Dx) Heart Care [address] [facility] [address] [place] [address] [...] 08/16/2022 Ancillary Procedure Cardiology Timothy Smith MD [address] [facility] [address] [place] [address] (Wo rk) 08/16/2022 Office Visit Cardiology Timothy Smith MD [address] [place], [place] [address] (Wo rk) documented as of this encounter Results INTERROGATION DEVICE EVAL REMOTE PACER UP TO 90 DAYS (06/25/2019 8:54 AM CDT) Component Value Ref Test Analysis Performed Pathologis t Range Method Time At Signature Date Time [id number] MEDTRONIC Interrogation Session Implantable [employer] MEDTRONIC Pulse Generator Oil Winterizer Implantable L121 ESSENTIO EL MEDTRONIC Pulse Generator Model Implantable [id number] MEDTRONIC Pulse Generator Serial Number Type Remote MEDTRONIC Interrogation Session Clinic Name [place] [facility]TRONIC Implantable Pacemaker MEDTRONIC Pulse Generator Type Implantable [id number] MEDTRONIC Pulse Generator Implant Date Implantable Lead [facility] [facility] MEDTRO RAUL Oil Winterizer Implantable Lead 2088TC Tendril MEDTRONI C Model STS Implantable Lead [id number] MEDTRONIC Serial Number Implantable Lead [id number] MEDTRONIC Implant Date Implantable Lead Bipolar Lead MEDTRONIC Polarity Type Implantable Lead UNKNOWN MEDTRONIC Location Detail 1 Implantable Lead Right Atrium [employer]TRONIC Location Implantable Lead [facility] [facility] MEDTRO RAUL Oil Winterizer Implantable Lead 2088TC Tendril MEDTRONI C Model STS Implantable Lead [id number] MEDTRONIC Serial Number Implantable Lead [id number] MEDTRONIC Implant Date Implantable Lead Bipolar Lead [...] MEDTRONIC Pacing Threshold Pulse Width Battery Date 70027701587060 MEDTRONIC Time of Measurements Battery Status Beginning of MEDTRONIC Service Battery 108 mo MEDTRONIC Remaining Longevity Battery 100 % MEDTRONIC Remaining Percentage Brandon Statistic [id number] MEDTRONIC Date Time Start Brandon Statistic [id number] MEDTRONIC Date Time End Brandon Statistic 0 % MEDTRONIC RA Percent Paced Brandon Statistic 62 % MEDTRONIC RV Percent Paced Atrial Tachy MEDTRONIC Statistic Date Time Start Atrial Tachy [id number] MEDTRONIC Statistic Date Time End Atrial Tachy 100 % MEDTRONIC Statistic AT/AF [place] Percent Episode 5 MEDTRONIC Statistic Recent Count [...] [place] MEDTRONIC Statistic Vendor Type Category Episode [id number] MEDTRONIC Statistic Recent Date Time Start Episode [id number] MEDTRONIC Statistic Recent Date Time End Episode [id number] MEDTRONIC Statistic Recent Date Time Start Episode [id number] MEDTRONIC Statistic Recent Date Time End Episode [id number] MEDTRONIC Statistic Recent Date Time Start Episode [id number] MEDTRONIC Statistic Recent Date Time End Episode [id number] MEDTRONIC Statistic Recent Date Time Start Episode [id number] MEDTRONIC Statistic Recent Date Time End Episode APM-92 MEDTRONIC Identifier Episode Type Periodic EGM MEDTRONIC Category Episode Date [id number] MEDTRONIC Time Episode RVAT-2151 MEDTRONIC Identifier Episode Type Other MEDTRONIC Category Episode Date [id number] MEDTRONIC Time Episode ATR-6510 MEDTRONIC Identifier Episode Type AT/AF MEDTRONIC Category Episode Date [id number] MEDTRONIC Time Episode V-1530 MEDTRONIC Identifier Episode Type [place] MEDTRONIC Category Episode Date [id number] MEDTRONIC Time Episode Duration 15 s MEDTRONIC Episode V-1529 MEDTRONIC Identifier Episode Type [place] MEDTRONIC Category Episode Date [id number] MEDTRONIC Time Episode Duration 14 s MEDTRONIC Episode V-1528 MEDTRONIC Identifier Episode Type [place] MEDTRONIC Category Episode Date [id number] MEDTRONIC Time Episode Duration 15 s MEDTRONIC Episode V-1527 MEDTRONIC Identifier Episode Type VT MEDTRONIC Category Episode Date [id number] MEDTRONIC Time Episode Duration 14 s MEDTRONIC Episode V-1526 MEDTRONIC Identifier Episode Type VT MEDTRONIC Category Episode Date [id number] MEDTRONIC Time Episode Duration 14 s MEDTRONIC Episode V-1525 MEDTRONIC Identifier Episode Type VT MEDTRONIC Category Episode Date [id number] MEDTRONIC Time Episode Duration 15 s MEDTRONIC Episode V-1524 MEDTRONIC Identifier Episode Type VT MEDTRONIC Category Episode Date [id number] MEDTRONIC Time Episode Duration 40 s MEDTRONIC Episode V-1523 MEDTRONIC Identifier Episode Type VT MEDTRONIC Category Episode Date [id number] MEDTRONIC Time Episode Duration 16 s MEDTRONIC Episode V-1522 MEDTRONIC Identifier Episode Type VT MEDTRONIC Category Episode Date [id number] MEDTRONIC Time Episode Duration 15 s MEDTRONIC Episode V-1521 MEDTRONIC Identifier Episode Type VT MEDTRONIC Category Episode Date [id number] MEDTRONIC Time Episode Duration 14 s MEDTRONIC Episode ATR-6509 MEDTRONIC Identifier Episode Type AT/AF MEDTRONIC Category Episode Date [id number] MEDTRONIC Time Episode Duration 1,020,750 s MEDTRONIC Episode ATR-6508 MEDTRONIC Identifier Episode Type AT/AF MEDTRONIC Category Episode Date [id number] MEDTRONIC Time Episode Duration 2,246,835 s MEDTRONIC Episode ATR-6507 MEDTRONIC Identifier Episode Type AT/AF MEDTRONIC Category Episode Date [id number] MEDTRONIC Time Episode Duration 30 s MEDTRONIC Anatomical Region Laterality Modality Other Specimen (Source) Anatomical Collection Method Collection Time Re ceived Time Location / / Volume Laterality 06/25/2019 5:40 AM CDT Narrative 07/01/2019 8:21 AM CDT [employer] L121 Essentio EL (D) Remote PPM Device CheckAP: 0%MERCHANDISING REPRESENTATIVE: 62%Mode: DDDRPresenting Rhythm: Afib wit h MERCHANDISING REPRESENTATIVE & VSHeart Rate: adequate heart rates per [...] No answer, le ft message with results. [facility] have reviewed and interpreted the d [...] situ documented in this encounter Care Teams Resaw Feeder Relationship Specialty Start Date End Date Slava Hernandez PA-C PCP - General Physician Wholesale And Retail Merchant 07/02/18 06/29/21 [place] [id number] documented as of this encounter
--- OUTSIDE RECORDS SUMMARY | 2022-07-26 10:54 | XMS_ITS | Encounter Summary ---
:1940 Author Organization [place] Address [facility] [place] [address] Care Team Providers Name Role Phone Slava [...] MD [address] [place] [address] (Wo rk) 08/16/2022 Office Visit Cardiology Timothy Smith MD [address] [place] [address] (Wo rk) documented as of this encounter Visit Diagnoses Not on filedocumented in this encounter Care Teams Station Helper Relationship Specialty Start Date End Date Slava Hernandez PA-C PCP - General Physician Marketing Team Lead 07/02/18 06/29/21 [facility] [address] [place] [address] documented as of this encounter
--- OUTSIDE RECORDS SUMMARY | 2022-07-26 10:54 | XMS_ITS | Encounter Summary ---
:1940 Author Organization [place] Address [address] [place] [address] Care Team Providers Name Role Phone Slava Hernandez PA-C Primary Care Provider Reason for Referral (Routine) - Closed Specialty Diagnoses / Procedures Referred By Contact Refer red To Contact Diagnoses Persistent atrial fibrillation (H) Chronic systolic congestive heart failure (H) Elda Johnson APRN ELEMENTARY EDUCATION TUTOR [address] [place] [address] Referral ID Status Reason Start Date Expiration Date Visits Requ ested Visits Authorized [id number] Closed 01/22/2019 01/22/2020 1 1 Specialty Diagnoses / Procedures Referred By Contact Refer red To Contact Elda Johnson APRN CNP [address] [place] [address] Referral ID Status Reason Start Date Expiration Date Visits Requ ested Visits Authorized Reason for Visit Reason Comments Follow Up 2 week followup - Closed Specialty Diagnoses / Procedures Referred By Contact Refer red To Contact Diagnoses Persistent atrial fibrillation (H) Timothy Smith MD [address] [place] [address] Referral ID Status Reason Start Date Expiration Date Visits Requ ested Visits Authorized [id number] Closed 01/01/2019 01/01/2020 1 1 Encounter Details Date Type Department Care Team Description 01/22/2019 Office Visit [facility] Timothy Smith MD [address] [place] [address] Chronic systolic congestive heart failur e (H) (Primary Dx); Heart Clinic Elda Johnson APRN ELEMENTARY EDUCATION TUTOR [address] [place] [address] Persistent atrial fibrillation (H) [address] [place] [address] Social History Tobacco Use Types [...] this encounter Progress Notes Elda Johnson APRN ELEMENTARY EDUCATION TUTOR - 01/22/2019 9:30 AM CDT HPI: Haris [...] (diabetes, CAD, age++) 3.?Sinus node dysfunction??s/p dual-chamber [employer] pacemaker 01/2016. 4.?Coronary disease??status post 4v CABG 1986. Thought to be VG -OM, VG-RCA, VG-LAD and VG-D at that time. Angiogram 01/2016 showed patent VGs 5.?Cardiomyopathy, 6. 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 Elda Johnson APRN, ELEMENTARY EDUCATION TUTOR This note was completed in part using [email or web address] voice recognition software. Although reviewed after completion, some word and grammatical errors may occur. Orders Placed This Encounter Procedures ??? Basic metabolic panel ??? [facility] ??? Follow-Up with Auto Glass Technician ??? EKG 12-lead complete w/read - Clinics [...] on phone: None Gets together: None Attends zoroastrianism service: None Active member of club or organization: None Attends meetings of clubs or organizations: None Relationship status: None ??? Intimate partner violence: Fear of current or ex partner: None Emotionally abused: None Physically abused: None Forced sexual activity: None Other Topics Concern ??? Parent/sibling w/ CABG, OK or angioplasty before 65F 55M? No ??? [...] 02/04/2016 CC Timothy Smith MD [address] [place] [id number] documented in this encounter Plan of Treatment Upcoming Encounters Date Type Specialty Care Team Description 08/16/2022 Ancillary Procedure Cardiology Timothy Smith MD [address] [place] [id number] (Wo rk) 08/16/2022 Office Visit Cardiology Timothy Smith MD [address] [place] [id number] (Wo rk) Scheduled Referrals Name Type Priority Associated Diagnoses Order S [facility] Referral Routine Chronic systolic Expected: congestive heart 01/29/2019 failure (H) (Approximate), Expires: 01/23/2020 Follow-Up with Referral Routine Persistent atrial Expected : Auto Glass Technician fibrillation (H) 04/23/2019 Chronic systolic (Approximat e), [...] (02/03/2019 11:17 AM T) Analysis Performed At [facility] logis Time Signature Sodium 140 133 - 144 02/03/2019 [place] mmol/L 12:07 PM [facility] Potassium 4.1 3.4 - 5.3 02/03/2019 [place] mmol/L 12:07 PM [facility] Chloride 104 94 - 109 02/03/2019 [place] mmol/L 12:07 PM [facility] Carbon Dioxide 30 20 - 32 02/03/2019 [place] mmol/L 12:15 PM [facility] Anion Gap 6 3 - 14 02/03/2019 [place] mmol/L 12:15 PM [facility] Glucose 95 70 - 99 02/03/2019 [place] mg/dL 12:15 PM [facility] Urea Nitrogen 39 (H) 7 - 30 02/03/2019 [place] mg/dL 12:15 PM [facility] Creatinine 1.64 (H) 0.66 - 02/03/2019 [place] 1.25 mg/dL 12:15 PM [facility] GFR Estimate 39 (L) >60 02/03/2019 [place] mL/min/{1. 12:15 PM [facility] 73_m2} HOSPITAL Comment: Non GFR Calc Starting 09/17/2018, serum creatinine ba sed estimated GFR (eGFR) will be calculated using the Chronic Kidney Dise ase Epidemiology Collaboration (CKD-EPI) equation. GFR Estimate If 45 (L) >60 mL/min/{1.73_m2} 02/03/2019 12:15 PM [facility] Comment: GFR Calc Starting 09/17/2018, serum creatinine ba sed estimated GFR (eGFR) will be calculated using the Chronic Kidney Dise ase Epidemiology Collaboration (CKD-EPI) equation. Calcium 9.6 8.5 - 10.1 mg/dL 02/03/2019 12:15 PM CDT [facility] Specimen Anatomical Collection Method Collection Time Receive d Time (Source) Location / / Volume Laterality Blood specimen 02/03/2019 11:17 9 (specimen) AM CDT 11:22 AM CDT Elda Johnson APRN, CNP LAB - BLOOD ORDERABL ES Performing Organization Address City/State/ZIP Code Phon e Number M [facility] [address] [place], [place] [address] [facility] [address] [place], [place] [address] [phone] EKG 12-lead complete w/read - Clinics (performed today) (01/22/2019 3:09 PM CDT) Narrative This result has an attachment that is no t available. Elda Johnson APRN, CNP ECG ORDERABLES documented in this encounter Visit Diagnoses Diagnosis Chronic systolic congestive heart failur e (H) - Primary Chronic systolic heart failure Persistent atrial fibrillation (H) Atrial fibrillation documented in this encounter Care Teams Furniture Crater Relationship Specialty Start Date End Date Slava Hernandez PA-C PCP - General Physician Tie Bucker 07/02/18 06/29/[address] [address] documented as of this encounter
--- OUTSIDE RECORDS SUMMARY | 2022-07-26 10:54 | XMS_ITS | Encounter Summary ---
:1940 Author Organization [place] Address [address] [place] [address] Care Team Providers Name Role Phone Slava Hernandez PA-C Primary Care Provider Encounter Details Date Type Department Care Team Description 12/12/2018 Telephone [facility] Heart Elda Johnson, Clinic [place] REFERRAL COORDINATOR [facility] [address] [place] [address] [place] [id number] [phone] Social History Tobacco Use Types Packs/Day Years [...] on 12/18 as he has OV at [facility] on the same day. Pt states that he will decide on the OV already scheduled on 01/20. Jing Telephone Encounter - Lacy Washington RN - 12/17/2018 1:50 PM CDT LM for pt that Dr Smith has 2 OV available in [place] tomorrow if pt is wanting to be [...] and repeat labs in 1 week--scheduled in 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
--- OUTSIDE RECORDS SUMMARY | 2022-07-26 10:54 | XMS_ITS | Encounter Summary ---
:1940 Author Organization [place] Address [address] [place] [address] Care Team Providers Name Role Phone Slava Hernandez PA-C Primary Care Provider Reason for Referral CV Testing - Closed Specialty Diagnoses / Procedures Referred By Contact Refer red To Contact Diagnoses Syncope and collapse Steven Canchola, Procedures Cardiac Device Check - Remote [address] [place] [address] Referral ID Status Reason Start Date Expiration Date Visits Requ ested Visits Authorized [id number] Closed 12/10/2018 12/10/2019 1 1 Reason for Visit CV Testing - Closed Specialty Diagnoses / Procedures Referred By Contact Refer red To Contact Diagnoses Syncope and collapse Steven Canchola, Procedures Cardiac Device Check - Remote [address] [place] [address] Referral ID Status Reason Start Date Expiration Date Visits Requ ested Visits Authorized [id number] Closed 09/01/2018 09/01/2019 1 1 Encounter Details Date Type Department Care Team Description 12/10/2018 [facility] Steven Canchola Sync ope and Procedure [facility] MD Jose collapse Heart Care [address] [facility] [address] [place] [address] [place] [phone] (Wo rk) [address] [phone] Social History Tobacco Use Types Packs/Day Years [...] [address] [place] [id number] (Wo rk) 08/16/2022 Office Visit Cardiology Timothy Smith MD [address] [place] [id number] (Wo rk) documented as of this encounter [...] Range Method Time At Signature Date Time [id number] [employer] Interrogation Session Implantable [place] [employer] Pulse Generator Tipple Mechanic Implantable L121 ESSENTIO EL [employer]IC Pulse Generator Model Implantable [id number] [employer] Pulse Generator Serial Number Type Remote [facility] Interrogation Session Clinic Name [facility]IC Implantable Pacemaker [facility]IC Pulse Generator Type Implantable [id number] [employer]IC Pulse Generator Implant Date Implantable Lead [facility] RAUL Tipple Mechanic Implantable Lead 8TC Tendril MEDTRONI C Model STS Implantable Lead [id number] [employer] Serial Number Implantable Lead [id number] MED[employer]ONIC Implant Date Implantable Lead Bipolar Lead [employer] Polarity Type Implantable Lead UNKNOWN [employer] Location Detail 1 Implantable Lead Right Atrium [facility] Location Implantable Lead [facility] RAUL Tipple Mechanic Implantable Lead 8TC Tendril MEDTRONI C Model STS Implantable Lead [id number] [employer] Serial Number Implantable Lead [id number] MEDTR[employer]IC [...] [employer]TRONIC Pacing Threshold Pulse Width Battery Date [id number] [employer]IC Time of Measurements Battery Status Beginning of [employer] Service Battery 114 mo [employer]IC Remaining Longevity Battery 100 % [employer]IC Remaining Percentage Brandon Statistic [id number] MEDTRONIC Date Time Start Brandon Statistic MEDTRONIC Date Time End Brandon Statistic 0 % [facility]IC RA Percent Paced Brandon Statistic 60 % [employer] RV Percent Paced Atrial Tachy [facility]TRONIC Statistic Date Time Start Atrial Tachy MEDTRONIC Statistic Date Time End Atrial Tachy 100 % [facility]IC Statistic AT/AF [place] Percent Episode 1 [facility] Statistic Recent Count [...] [place] [facility]IC Statistic Vendor Type Category Episode [id number] [facility]IC Statistic Recent Date Time Start Episode [id number] [facility]IC Statistic Recent Date Time End Episode [id number] [facility]IC Statistic Recent Date Time Start Episode [id number] [facility]IC Statistic Recent Date Time End Episode [id number] MEDTRONIC Statistic Recent Date Time Start Episode [id number] MEDTRONIC Statistic Recent Date Time End Episode [id number] MEDTRONIC Statistic Recent Date Time Start Episode [id number] MEDTR[facility]IC Statistic Recent Date Time End Episode APM-91 [facility]IC Identifier Episode Type Periodic EGM [facility]IC Category Episode Date [id number] [facility]IC Time Episode [id number] [facility] Identifier Episode Type Other [employer]TRONIC Category Episode Date [id number] MED[employer]IC Time Episode V-1456 [facility]IC Identifier Episode Type [place] [facility]IC Category Episode Date [id number] [facility]IC Time Episode Duration 22 s MEDTRONIC Episode V-1455 MEDTRONIC Identifier Episode Type SVT MEDTRONIC Category Episode Vendor SVT [facility]TRONIC Type Category Episode Date [id number] MEDTRONIC Time Episode Duration 110 s MEDTRONIC Episode V-1454 MEDTRONIC Identifier Episode Type [place] MEDTRONIC Category Episode Date [id number] MEDTRONIC Time Episode Duration 15 s MEDTRONIC Episode V-1453 MEDTR[facility]IC Identifier Episode Type [place] MEDTRONIC Category Episode Date [id number] MEDTRONIC Time Episode Duration 21 s MEDTRONIC Episode V-1452 MEDTRONIC Identifier Episode Type VT MEDTRONIC Category Episode Date [id number] [facility]TRONIC Time Episode Duration 21 s MEDTRONIC Episode V-1451 MEDTRONIC Identifier Episode Type VT MEDTRONIC Category Episode Date [id number] MEDTRONIC Time Episode Duration 15 s MEDTRONIC Episode V-1450 MEDTRONIC Identifier Episode Type VT MEDTRONIC Category Episode Date [id number] MEDTRONIC Time Episode Duration 17 s MEDTRONIC Episode V-1449 MEDTRONIC Identifier Episode Type VT MEDTRONIC Category Episode Date [id number] MEDTRONIC Time Episode Duration 13 s MEDTRONIC Episode V-1448 MEDTRONIC Identifier Episode Type [place] MEDTRONIC Category Episode Date [id number] MEDTRONIC Time Episode Duration 19 s MEDTRONIC Episode ATR-6506 [employer]IC Identifier Episode Type AT/AF [facility]IC Category Episode Date [id number] MEDTRONIC Time Episode V-1447 MEDTRONIC Identifier Episode Type [place] MEDTRONIC Category Episode Date [id number] [facility]TRONIC Time Episode Duration 17 s MEDTRONIC Episode V-1446 [employer]IC Identifier Episode Type [place] [facility]IC Category Episode Date [id number] [employer] Time Episode Duration 14 s [facility] Anatomical Region Laterality Modality Other Specimen (Source) Anatomical Collection Method Collection Time Re ceived Time Location / / Volume Laterality 03/18/2019 5:41 AM CDT Narrative 03/19/2019 2:34 PM CDT [employer] L121 [employer] EL (D) Remote PPM Device CheckAP: 0%MARKETING ADMIN: 60%Mode: DDDRPresenting Rhythm: Chronic Afib and VPHeart [...] plan. Steven Canchola MD CV CARDIAC SERVICES [facility] INTERROGATION DEVICE EVAL REMOTE PACER UP TO 90 DAYS (12/10/2018 10:02 AM CDT) Component Value Ref Test Analysis Performed Pathologis t Range Method Time At Signature Date Time [id number] [employer] Interrogation Session Implantable [place] [employer] Pulse Generator Tipple Mechanic Implantable L121 ESSENTIO EL [employer]IC Pulse Generator Model Implantable [id number] [employer]IC Pulse Generator Serial Number Type Remote [facility]IC Interrogation Session Clinic Name [facility]IC Implantable Pacemaker MEDTRONIC Pulse Generator Type Implantable [id number] MEDTRONIC Pulse Generator Implant Date Implantable Lead [facility] RAUL Tipple Mechanic Implantable Lead 2088TC Tendril MEDTRONI C Model STS Implantable Lead [id number] [employer]IC Serial Number Implantable Lead [id number] MEDTRONIC Implant Date Implantable Lead Bipolar Lead [facility]IC Polarity Type Implantable Lead UNKNOWN [employer]IC Location Detail 1 Implantable Lead Right Atrium [facility] Location Implantable Lead [facility] RAUL Tipple Mechanic Implantable Lead 2088TC Tendril MEDTRONI C Model STS Implantable Lead [id number] [employer]IC Serial Number Implantable Lead [id number] MEDTRONIC Implant Date Implantable Lead Bipolar Lead [...] MEDTRONIC Pacing Threshold Pulse Width Battery Date 43362103494298 [employer] Time of Measurements Battery Status Beginning of MEDTRONIC Service Battery 102 mo MEDTRONIC Remaining Longevity Battery 97 % [employer]IC Remaining Percentage Brandon Statistic [id number] [employer]TRONIC Date Time Start Brandon Statistic MEDTRONIC Date Time End Brandon Statistic 0 % [facility]TR[employer]IC RA Percent Paced Brandon Statistic 71 % [facility]IC RV Percent Paced Atrial Tachy [id number] MEDTRONIC Statistic Date Time Start Atrial Tachy [id number] [facility]TRONIC Statistic Date Time End Atrial Tachy 100 % MEDTRONIC Statistic AT/AF [place] Percent Episode 0 [facility]TRONIC Statistic Recent Count [...] [place] MEDTRONIC Statistic Vendor Type Category Episode [id number] [facility]TRONIC Statistic Recent Date Time Start Episode [id number] [facility]TRONIC Statistic Recent Date Time End Episode [id number] [facility]TRONIC Statistic Recent Date Time Start Episode [id number] [facility]TRONIC Statistic Recent Date Time End Episode [id number] MEDTRONIC Statistic Recent Date Time Start Episode [id number] [facility]TRONIC Statistic Recent Date Time End Episode [id number] [facility]TRONIC Statistic Recent Date Time Start Episode [id number] [facility]TRONIC Statistic Recent Date Time End Episode APM-90 [facility]IC Identifier Episode Type Periodic EGM [facility]ONIC Category Episode Date [id number] MEDTRONIC Time Episode RVAT-1695 [facility]IC Identifier Episode Type Other MEDTRONIC Category Episode Date [id number] MEDTRONIC Time Episode V-1440 MEDTRONIC Identifier Episode Type [place] MEDTRONIC Category Episode Date [id number] MEDTRONIC Time Episode Duration 12 s MEDTRONIC Episode V-1439 MEDTRONIC Identifier Episode Type VT [facility]TR[facility]IC Category Episode Date [id number] [facility]ONIC Time Episode Duration 13 s [facility] Anatomical Region Laterality Modality Other Specimen (Source) Anatomical Collection Method Collection Time Re ceived Time Location / / Volume Laterality 12/10/2018 5:42 AM CDT Narrative 12/11/2018 12:07 PM CDT [employer] (D) Remote PPM Device CheckAP: 0%\X090A\MARKETING ADMIN: 71%Mode: ??DDDR ? Presenting Rhythm: AFib with [...] collapse documented in this encounter Care Teams Hard Rock Miner Relationship Specialty Start Date End Date Slava Hernandez, PAIlanaC PCP - General Physician Grubber 07/02/18 06/29/[address] [address] documented as of this encounter
--- OUTSIDE RECORDS SUMMARY | 2022-07-26 10:54 | XMS_ITS | Encounter Summary ---
:1940 Author Organization [place] Address [address] [place] [place] [address] Care Team Providers Name Role Phone Slava Hernandez PA-C Primary Care Provider Reason for Referral CV Testing (Routine) - Closed Specialty Diagnoses / Procedures Referred By Contact Refer red To Contact Diagnoses Cardiac pacemaker in situ [facility] Cv Cardiac Services Procedures Cardiac Device Check - In Clinic [address] [facility] [address] [place] [phone] Referral ID Status Reason Start Date Expiration Date Visits Requ ested Visits Authorized [id number] Closed 06/25/2019 06/24/2020 1 1 Encounter Details Date Type Department Care Team Description 06/25/2019 [facility] Sary Riojas Cardi ac pacemaker in [facility] situ (Ria jing Dx) Heart Care [address] [facility] [address] [place] [phone] Social [...] Ancillary Procedure Cardiology Timothy Smith MD [address] [facility] [address] [place] [id number] (Wo rk) 08/16/2022 Office Visit Cardiology Timothy Smith MD [address] [place] [address] (Wo rk) documented as of this encounter Results PM DEVICE PROGRAMMING EVAL, DUAL LEAD PACER (10/15/2019 9:24 AM OPERATOR CATALYST CONCENTRATION) Component Value Ref Test Analysis Performed Pathologis t Range Method Time At Signature Date Time [id number] [employer] Interrogation Session Implantable [place] [employer] Pulse Generator Second Hand Paper Machine Implantable L121 ESSENTIO EL [employer]IC Pulse Generator Model Implantable 037100 MED[employer]ONIC Pulse Generator Serial Number Type In Clinic [facility]IC Interrogation Session Clinic Name [facility] MEDTRONIC Implantable Pacemaker MEDTRONIC Pulse Generator Type Implantable [id number] MEDTRONIC Pulse Generator Implant Date Implantable Lead [facility]O RAUL Second Hand Paper Machine Implantable Lead 2088TC Tendril MEDTRONI C Model STS Implantable Lead [id number] [employer]IC Serial Number Implantable Lead 20160204 MEDTRONIC Implant Date Implantable Lead Bipolar Lead [employer]IC Polarity Type Implantable Lead UNKNOWN [facility] Location Detail 1 Implantable Lead Right Atrium [facility] Location Implantable Lead [facility] RAUL Second Hand Paper Machine Implantable Lead 2088TC Tendril MEDTRONI C Model STS Implantable Lead [id number] MEDTRONIC Serial Number Implantable Lead [id number] MEDTRONIC [...] NSVT MEDTRONIC Statistic Vendor Type Category Episode [id number] MEDTRONIC Statistic Total Date Time End Episode 97 MEDTRONIC Statistic Recent Count Episode [place] MEDTRONIC Statistic Type Category Episode NSVT MEDTRONIC Statistic Vendor Type Category Episode [id number] [employer]IC Statistic Recent Date Time Start Episode [id number] [employer]IC Statistic Recent Date Time End Anatomical Region Laterality Modality Other Specimen (Source) Anatomical Collection Method Collection Time Re ceived Time Location / / Volume Laterality 10/15/2019 3:46 PM OPERATOR CATALYST CONCENTRATION Narrative 10/16/2019 10:41 AM OPERATOR CATALYST CONCENTRATION [employer] Accolade (D) Pacemaker Device Check AP: <1 ?% ?? MEN'S GOLF COACH: 61 % ?? Mode: VVIR 60-130 (was [...] situ documented in this encounter Care Teams Paleologist Relationship Specialty Start Date End Date Slava Hernandez PA-C PCP - General Physician Delivery Driver/Customer Service 07/02/18 06/29/[address] [address] documented as of this encounter
--- OUTSIDE RECORDS SUMMARY | 2022-07-26 10:54 | XMS_ITS | Encounter Summary ---
:1940 Author Organization [place] Address [address] [facility] [place] [address] Care Team Providers Name Role Phone Slava Hernandez PA-C Primary Care Provider Reason for Referral - Closed Specialty Diagnoses / Procedures Referred By Contact Refer red To Contact Diagnoses Persistent atrial fibrillation (H) Ankur Smith MD [address] [place] [address] Referral ID Status Reason Start Date Expiration Date Visits Requ ested Visits Authorized [id number] Closed 01/01/2019 01/01/2020 1 1 Reason for Visit Reason Comments Edema Cardiomyopathy Encounter Details Date Type Department Care Team Description 01/01/2019 Office Visit [facility] Ankur Smith MD ACS (acute coronary syndrome) (H) (Prima ry Dx); [facility] [place] [address] Palpitations; [address] Persistent atrial fibrillation (H) [facility] [address] [place] [address] [place] [phone] Social History Tobacco Use Types Packs/Day Years [...] have rapid ventricular rate. cc: HANK Handley [facility] [id number] [place] [address] ANKUR SMITH MD MT: CAITLYN Name: RADHA VILLA Account: [id number] : 1940 Service Date: 01/01/2019 Document: [id number] Ankur Smith MD - 01/01/2019 11:15 AM [...] on phone: None Gets together: None Attends gnosticism service: None Active member of club or organization: None Attends meetings of clubs or organizations: None Relationship status: None ??? Intimate partner violence: Fear of current or ex partner: None Emotionally abused: None Physically abused: None Forced sexual activity: None Other Topics Concern ??? Parent/sibling w/ CABG, [place] or angioplasty before 65F 55M? No ??? [...] Oriented x 3 CC Slava Hernandez PA-C [address] [address] documented in this encounter Plan of Treatment Upcoming Encounters Date Type Specialty Care Team Description 08/16/2022 Ancillary Procedure Cardiology Ankur Smith MD [address] [place] [phone] (Fiorella olvera) 08/16/2022 Office Visit Cardiology Ankur Smith MD [address] [place] [phone] (Fiorella olvera) Scheduled Referrals Name Type Priority Associated Diagnoses Order S chedule Follow-Up with Referral Routine Persistent atrial Expected : 01/15/2019 Cardiac Advanced fibrillation (H) (Approx imate), Practice Provider Expires: 0 01/01/2020 documented as of this encounter Results (ABNORMAL) Basic metabolic panel (01/22/2019 9:14 AM CDT) Analysis Performed At Patho logist Time Signature Sodium 140 133 - 144 01/22/2019 [facility] [facility] mmol/L 10:08 AM [facility] Potassium 4.1 3.4 - 5.3 01/22/2019 [facility] mmol/L 10:08 AM [facility] Chloride 105 94 - 109 01/22/2019 [facility] mmol/L 10:08 AM [facility] Carbon Dioxide 31 20 - 32 01/22/2019 [facility] mmol/L 10:17 AM [facility] Anion Gap 4 3 - 14 01/22/2019 [facility] mmol/L 10:17 AM [facility] Glucose 102 (H) 70 - 99 01/22/2019 [facility] mg/dL 10:17 AM [facility] Urea Nitrogen 37 (H) 7 - 30 01/22/2019 [facility] mg/dL 10:17 AM [facility] Creatinine 1.63 (H) 0.66 - 01/22/2019 [facility] 1.25 mg/dL 10:17 AM [facility] GFR Estimate 39 (L) >60 01/22/2019 [facility] mL/min/{1. 10:17 AM [facility] 73_m2} HOSPITAL Comment: Non GFR Calc Starting 09/17/2018, serum creatinine ba sed estimated GFR (eGFR) will be calculated using the Chronic Kidney Dise [facility] Epidemiology Collaboration (CKD-EPI) equation. GFR Estimate If 45 (L) >60 mL/min/{1.73_m2} 01/22/2019 10:17 AM [facility] Comment: GFR Calc Starting 09/17/2018, serum creatinine ba sed estimated GFR (eGFR) will be calculated using the Chronic Kidney Dise [facility] Epidemiology Collaboration (CKD-EPI) equation. Calcium 9.7 8.5 - 10.1 mg/dL 01/22/2019 10:17 AM [facility] Specimen Anatomical Collection Method Collection Time Receive d Time (Source) Location / / Volume Laterality Blood specimen 01/22/2019 9:14 AM 019 9:17 (specimen) CDT AM CDT Ankur Smith MD LAB - BLOOD ORDERABLES Performing Organization Address City/State/ZIP Code Phon e Number M [facility] [address] [place], [place] [address] [facility] [address] [place], [place] [address] [place] [address] documented in this encounter Visit Diagnoses Diagnosis ACS (acute coronary syndrome) (H) - Prim arnie Intermediate coronary syndrome Palpitations Persistent atrial fibrillation (H) Atrial fibrillation documented in this encounter Care Teams Referral Management Liaison Relationship Specialty Start Date End Date Slava Hernandez PA-C PCP - General Physician Commercial Fisher 07/02/18 06/29/21 [facility] [address] [place] [address] documented as of this encounter
--- OUTSIDE RECORDS SUMMARY | 2022-07-26 10:54 | XMS_ITS | Encounter Summary ---
:1940 Author Organization [place] Address [address] [facility] [place] [address] Care Team Providers Name Role Phone Slava Hernandez PA-C Primary Care Provider Reason for Referral (Routine) - Closed Specialty Diagnoses / Procedures Referred By Contact Refer red To Contact Diagnoses Persistent atrial fibrillation (H) Ankur Smith MD [address] [place] [address] Referral ID Status Reason Start Date Expiration Date Visits Requ ested Visits Authorized [id number] Closed 06/25/2019 06/24/2020 1 1 (Routine) - Closed Specialty Diagnoses / Procedures Referred By Contact Refer red To Contact Diagnoses Persistent atrial fibrillation (H) Ankur Smith MD [address] [place] [address] Referral ID Status Reason Start Date Expiration Date Visits Requ ested Visits Authorized [id number] Closed 06/25/2019 06/24/2020 1 1 Reason for Visit Reason Comments Consult AF, cardiomyopathy, PPM, CA D (Routine) - Closed Specialty Diagnoses / Procedures Referred By Contact Refer red To Contact Diagnoses Persistent atrial fibrillation (H) Chronic systolic congestive heart failure (H) Elda Johnson, FLACO ROLLE [address] [place] [address] Referral ID Status Reason Start Date Expiration Date Visits Requ ested Visits Authorized [id number] Closed 01/22/2019 01/22/2020 1 1 Encounter Details Date Type Department Care Team Description 06/25/2019 Office Visit [facility] Alex Ryannterri Montoya, STORM SASH MAKER TEA TREE FARM WORKER [address] [place] [address] Persistent atrial fibrillation (H); Heart Clinic Ankur Smith MD [address] [place] [phone] Chronic systolic congestive heart failur e (H) [place] [id number] [place] [address] [address] [place] [phone] Social History Tobacco Use Types Packs/Day Years [...] encouraged to lose weight. cc: HANK Handley [facility] [address] [place] [address] ANKUR SMITH MD MT: CAITLYN Name: RADHA VILLA Account: [id number] : 1940 Service Date: 06/25/2019 Document: [id number] Ankur Smith MD - 06/25/2019 10:15 AM CDT HPI and Plan: See dictation Orders Placed This Encounter Procedures ??? Follow-Up with Cardiac Advanced Practice Provider ??? Follow-Up with Pantograph Ii Engraver ??? EKG 12-lead complete w/read (Future)- to [...] Other Topics Concern ??? Parent/sibling w/ CABG, [place] or angioplasty before 65F 55M? No ??? [...] Oriented x 3 CC Slava Hernandez PA-C [facility] [address] [place] [address] documented in this encounter Plan of Treatment Upcoming Encounters Date Type Specialty Care Team Description 08/16/2022 Ancillary Procedure Cardiology Ankur Smith MD [address] [place] [phone] (Fiorella olvera) 08/16/2022 Office Visit Cardiology Ankur Smith MD [address] [place] [phone] (Fiorella olvera) Scheduled Referrals Name Type Priority Associated Diagnoses Order S chedule Follow-Up with Cardiac Referral Routine Persistent atrial Expected: Advanced Practice Provider fibrillation ( H) 12/24/2019 (Approximate), Expires: 06/24/2020 Follow-Up with Referral Routine Persistent atrial Expected : Pantograph Ii Engraver fibrillation (H) 06/02 (Approximate), Expires: 11/06/2020 documented [...] failure documented in this encounter Care Teams Apprentice Funeral Director Relationship Specialty Start Date End Date Slava Hernandez, PAIlanaC PCP - General Physician Client Server Programmer 07/02/18 06/29/[address] [address] documented as of this encounter
--- OUTSIDE RECORDS SUMMARY | 2022-07-26 10:54 | XMS_ITS | Encounter Summary ---
:1940 Author Organization [place] Address [address] [facility] [place] [address] Care Team Providers Name Role Phone Slava Hernandez PA-C Primary Care Provider Encounter Details Date Type Department Care Team Description 02/03/2019 [facility] Heart Rewriter jordyn systolic Clinic [place] congestive heart failure [address] [facility] [address] [place] [address] Social History Tobacco Use [...] [address] [place] [phone] (Wo rk) 08/16/2022 Office Visit Cardiology Timothy Smith MD [address] [place] [phone] (Wo rk) documented as of this encounter [...] Signature Sodium 140 133 - 144 02/03/2019 [place] mmol/L 12:07 PM [facility] Potassium 4.1 3.4 - 5.3 02/03/2019 [place] mmol/L 12:07 PM [facility] Chloride 104 94 - 109 02/03/2019 [place] mmol/L 12:07 PM [facility] Carbon Dioxide 30 20 - 32 02/03/2019 [place] mmol/L 12:15 PM [facility] Anion Gap 6 3 - 14 02/03/2019 [place] mmol/L 12:15 PM [facility] Glucose 95 70 - 99 02/03/2019 [place] mg/dL 12:15 PM [facility] Urea Nitrogen 39 (H) 7 - 30 02/03/2019 [place] mg/dL 12:15 PM [facility] Creatinine 1.64 (H) 0.66 - 02/03/2019 [place] 1.25 mg/dL 12:15 PM [facility] GFR Estimate 39 (L) >60 02/03/2019 [place] mL/min/{1. 12:15 PM [facility] 73_m2} HOSPITAL Comment: Non GFR Calc Starting 09/17/2018, serum creatinine ba sed estimated GFR (eGFR) will be calculated using the Chronic Kidney Dise [facility] Epidemiology Collaboration (CKD-EPI) equation. GFR Estimate If 45 (L) >60 mL/min/{1.73_m2} 02/03/2019 12:15 PM [facility] Comment: GFR Calc Starting 09/17/2018, serum creatinine ba sed estimated GFR (eGFR) will be calculated using the Chronic Kidney Dise [facility] Epidemiology Collaboration (CKD-EPI) equation. Calcium 9.6 8.5 - 10.1 mg/dL 02/03/2019 12:15 PM [facility] Specimen Anatomical Collection Method Collection Time Receive d Time (Source) Location / / Volume Laterality Blood specimen 02/03/2019 11:17 9 (specimen) AM CDT 11:22 AM CDT Elda Johnson APRN MECHANIC FIELD SERVICE LAB - BLOOD ORDERABL ES Performing Organization Address City/State/ZIP Code Phon e Number M [facility] [address] [place], [place] [address] [facility] [address] [place], [place] [address] [place] [address] documented in this encounter Visit Diagnoses Diagnosis Chronic systolic congestive heart failur e (H) Chronic systolic heart failure documented in this encounter Care Teams Ground Water Technician Relationship Specialty Start Date End Date Slava Hernandez PA-C PCP - General Physician Collection Systems Consultant 07/02/18 06/29/21 [facility] [address] [place] [address] documented as of this encounter
--- OUTSIDE RECORDS SUMMARY | 2022-07-26 10:54 | XMS_ITS | Encounter Summary ---
:1940 Author Organization [place] Address [facility] [place] [address] Care Team Providers Name Role Phone Slava Hernandez PA-C Primary Care Provider Reason for Visit Reason Onset Date Comments Refill Request 01/10/2019 [place] Encounter Details Date Type Department Care Team Description 01/10/2019 Refill [facility] Heart Temitope Tamayo, Refill Request Clinic Patt EL (torsemide) [address] [facility] [address] [place] [phone] Social History [...] months versus 30 days. Sent script to [facility] per request. SIENNA Okeefe documented in this encounter Plan of Treatment Upcoming Encounters Date Type Specialty Care Team Description 08/16/2022 Ancillary Procedure Cardiology Timothy Smith MD [address] [place] [phone] (Wo rk) 08/16/2022 Office Visit Cardiology Timothy Smith MD [address] [facility] [address] [place], [place] [address] (Wo rk) documented as of this encounter Visit Diagnoses Diagnosis Localized edema Edema documented in this encounter Care Teams Rn Security Relationship Specialty Start Date End Date Slava Hernandez PA-C PCP - General Physician Flatcar Whacker 07/02/18 06/29/21 [facility] [address] [place], [place] [address] documented as of this encounter
--- OUTSIDE RECORDS SUMMARY | 2022-07-26 10:54 | XMS_ITS | Encounter Summary ---
:1940 Author Organization [place] Address [facility] [place] [address] Care Team Providers Name Role Phone Slava [...] MD [address] [place] [address] (Wo rk) 08/16/2022 Office Visit Cardiology Timothy Smith MD [address] [place] [phone] (Wo rk) documented as of this encounter Visit Diagnoses Not on filedocumented in this encounter Care Teams Puff Iron Operator Relationship Specialty Start Date End Date Slava Hernandez PA-C PCP - General Physician Pineapple Plantation Manager 07/02/18 06/29/21 [facility] [address] [place] [address] documented as of this encounter
--- OUTSIDE RECORDS SUMMARY | 2022-07-26 10:54 | XMS_ITS | Encounter Summary ---
:1940 Author Organization [place] Address [address] [place] [address] Care Team Providers Name Role Phone Slava Hernandez PA-C Primary Care Provider Encounter Details Date Type Department Care Team Description 01/22/2019 [facility] [place] fibrillation (H) [address] [facility] [address] [place], [place] [phone] Social History Tobacco Use Types Packs/Day [...] MD [address] [place] [phone] (Wo rk) 08/16/2022 Office Visit Cardiology Timothy Smith MD [address] [place] [phone] (Wo rk) documented as of this encounter [...] Signature Sodium 140 133 - 144 01/22/2019 [place] mmol/L 10:08 AM [facility] Potassium 4.1 3.4 - 5.3 01/22/2019 [place] mmol/L 10:08 AM [facility] Chloride 105 94 - 109 01/22/2019 [place] mmol/L 10:08 AM [facility] Carbon Dioxide 31 20 - 32 01/22/2019 [place] mmol/L 10:17 AM [facility] Anion Gap 4 3 - 14 01/22/2019 [place] mmol/L 10:17 AM [facility] Glucose 102 (H) 70 - 99 01/22/2019 [place] mg/dL 10:17 AM [facility] Urea Nitrogen 37 (H) 7 - 30 01/22/2019 [place] mg/dL 10:17 AM [facility] Creatinine 1.63 (H) 0.66 - 01/22/2019 [place] 1.25 mg/dL 10:17 AM [facility] GFR Estimate 39 (L) >60 01/22/2019 [place] mL/min/{1. 10:17 AM [facility] 73_m2} HOSPITAL Comment: Non GFR Calc Starting 09/17/2018, serum creatinine ba sed estimated GFR (eGFR) will be calculated using the Chronic Kidney Dise [facility] Epidemiology Collaboration (CKD-EPI) equation. GFR Estimate If 45 (L) >60 mL/min/{1.73_m2} 01/22/2019 10:17 AM [facility] Comment: GFR Calc Starting 09/17/2018, serum creatinine ba sed estimated GFR (eGFR) will be calculated using the Chronic Kidney Dise [facility] Epidemiology Collaboration (CKD-EPI) equation. Calcium 9.7 8.5 - 10.1 mg/dL 01/22/2019 10:17 AM [facility] Specimen Anatomical Collection Method Collection Time Receive d Time (Source) Location / / Volume Laterality Blood specimen 01/22/2019 9:14 AM 019 9:17 (specimen) CDT AM CDT Timothy Smith MD LAB - BLOOD ORDERABLES Performing Organization Address City/State/ZIP Code Phon e Number M [facility] [address] [place], [place] 5533 [facility] [address] [phone] documented in this encounter Visit Diagnoses Diagnosis Persistent atrial fibrillation (H) Atrial fibrillation documented in this encounter Care Teams Bolter Helper Relationship Specialty Start Date End Date Slava Hernandez PA-C PCP - General Physician Shift Supervisor Rn 07/02/18 06/29/21 [facility] [address] [place] [address] documented as of this encounter
--- OUTSIDE RECORDS SUMMARY | 2022-07-26 10:54 | XMS_ITS | Encounter Summary ---
:1940 Author Organization [place] Address [facility] [place] [address] Care Team Providers Name Role Phone Slava [...] MD [address] [place] [address] (Wo rk) 08/16/2022 Office Visit Cardiology Timothy Smith MD [address] [place] [address] (Wo rk) documented as of this encounter Visit Diagnoses Not on filedocumented in this encounter Care Teams Leaf Stamper Relationship Specialty Start Date End Date Slava Hernandez PA-C PCP - General Physician Clinical Review Nurse 07/02/18 06/29/21 [facility] [address] [place] [address] documented as of this encounter
--- OUTSIDE RECORDS SUMMARY | 2022-07-26 10:54 | XMS_ITS | Encounter Summary ---
:1940 Author Organization [place] Address [address] [facility] [place] [address] Care Team Providers Name Role Phone Slava Hernandez PA-C Primary Care Provider Encounter Details Date Type Department Care Team Description 01/23/2019 Documentation Only [facility] Elda Johnson [facility] Patt Montoya APRN EYEGLASS INSPECTOR [address] [facility] [address] [facility] [address] [place] [address] [place] [address] [phone] Social History Tobacco Use Types Packs/Day Years [...] MD [address] [place] [address] (Wo rk) 08/16/2022 Office Visit Cardiology Timothy Smith MD [address] [place] [address] (Wo rk) documented as of this encounter Visit Diagnoses Not on filedocumented in this encounter Care Teams Outpatient Program Coordinator Relationship Specialty Start Date End Date Slava Hernandez PA-C PCP - General Physician Distribution Systems Superintendent 07/02/18 06/29/21 [facility] [address] [place] [address] documented as of this encounter
--- OUTSIDE RECORDS SUMMARY | 2022-07-26 10:54 | XMS_ITS | Encounter Summary ---
:1940 Author Organization [place] Address [facility] [place] [address] Care Team Providers Name Role Phone Slava Hernandez PA-C Primary Care Provider Reason for Visit Reason Onset Date Comments Refill Request 12/31/2018 Tamsulosin Encounter Details Date Type Department Care Team Description 12/31/2018 Refill [facility] Shea Rivera, Refill Request Urology Clinic Patt LÓPEZ (Tamsulosin) [address] [place] [address] [place] [address] [place], [place] 853[address] (Wo rk) Social History Tobacco Use Types [...] Tamsulosin 0.4mg CAP. His preffered pharmacy is [facility], mail order. 90 day supply Call back if needed is [phone] Thanks! documented in this encounter Plan of Treatment Upcoming Encounters Date Type Specialty Care Team Description 08/16/2022 Ancillary Procedure Cardiology Timothy Smith MD [address] [place] [address] (Wo rk) 08/16/2022 Office Visit Cardiology Timothy Smith MD [address] [place] [address] (Wo rk) documented as of this encounter Visit Diagnoses Diagnosis Urinary frequency - Primary Weak urinary stream Slowing of urinary stream documented in this encounter Care Teams Diesel Engine Specialist Relationship Specialty Start Date End Date Slava Hernandez PA-C PCP - General Physician Workforce Investment Act Career Manager 07/02/18 06/29/21 [facility] [address] [place] [address] documented as of this encounter
--- OUTSIDE RECORDS SUMMARY | 2022-07-26 10:54 | XMS_ITS | Encounter Summary ---
:1940 Author Organization [place] Address [address] [facility] [place] [address] Care Team Providers Name Role Phone Slava Hernandez PA-C Primary Care Provider Encounter Details Date Type Department Care Team Description 12/12/2018 [facility] Heart [facility] [address] [place] [address] Social History Tobacco Use [...] [address] [place] [phone] (Wo rk) 08/16/2022 Office Visit Cardiology Timothy Smith MD [address] [place] [phone] (Wo rk) documented as of this encounter Procedures Procedure Name Priority Date/Time Associated Diagnosis Comme nts BASIC METABOLIC Routine 12/12/2018 9:12 AM Ischemic cardiomyop athy Results for this PANEL CDT procedure are i n the results section. documented in this encounter Results (ABNORMAL) Basic metabolic panel (12/12/2018 9:12 AM CDT) Analysis Performed At Patho logist Time Signature Sodium 143 133 - 144 12/12/2018 [place] mmol/L 9:51 AM [facility] Potassium 4.2 3.4 - 5.3 12/12/2018 [place] mmol/L 9:51 AM [facility] Chloride 106 94 - 109 12/12/2018 [place] mmol/L 9:51 AM [facility] Carbon Dioxide 31 20 - 32 12/12/2018 [place] mmol/L 9:56 AM [facility] Anion Gap 6 3 - 14 12/12/2018 [place] mmol/L 9:56 AM [facility] Glucose 101 (H) 70 - 99 12/12/2018 [place] mg/dL 9:56 AM [facility] Urea Nitrogen 55 (H) 7 - 30 12/12/2018 [place] mg/dL 9:56 AM [facility] Creatinine 2.20 (H) 0.66 - 12/12/2018 [place] 1.25 mg/dL 9:56 AM [facility] GFR Estimate 27 (L) >60 12/12/2018 [place] mL/min/{1. 9:56 AM [facility] 73_m2} [facility] Comment: Non GFR Calc Starting 09/17/2018, serum creatinine ba sed estimated GFR (eGFR) will be calculated using the Chronic Kidney Dise [facility] Epidemiology Collaboration (CKD-EPI) equation. GFR Estimate If 32 (L) >60 mL/min/{1.73_m2} 12/12/2018 9: 56 AM [facility] Comment: GFR Calc Starting 09/17/2018, serum creatinine ba sed estimated GFR (eGFR) will be calculated using the Chronic Kidney Dise [facility] Epidemiology Collaboration (CKD-EPI) equation. Calcium 8.8 8.5 - 10.1 mg/dL 12/12/2018 9:56 AM [facility] Specimen Anatomical Collection Method Collection Time Receive d Time (Source) Location / / Volume Laterality Blood specimen 12/12/2018 9:12 AM 019 9:14 (specimen) CDT AM CDT Elda Johnson APRN CLAIM SPECIALIST LAB - BLOOD ORDERABL ES Performing Organization Address City/State/ZIP Code Phon e Number M [facility] [address] [place], [place] [address] [facility] [address] [phone] documented in this encounter Visit Diagnoses Diagnosis Ischemic cardiomyopathy Other specified forms of chronic ischemi c heart disease documented in this encounter Care Teams Clinical Resource Director Relationship Specialty Start Date End Date Slava Hernandez PA-C PCP - General Physician Performance Improvement Consultant 07/02/18 06/29/21 [facility] [address] [place] [address] documented as of this encounter
--- OUTSIDE RECORDS SUMMARY | 2022-07-26 10:55 | XMS_ITS | Encounter Summary ---
:1940 Author Organization [place] Address [address] [place] [address] Care Team Providers Name Role Phone Slava Hernandez PA-C Primary Care Provider Encounter Details Date Type Department Care Team Description 11/25/2018 [facility] Heart ACS (acute coronary Clinic [place] syndrome) (H) [address] [facility] [address] [place], [place] [phone] Social History Tobacco Use Types Packs/Day [...] [address] [place] [id number] (Wo rk) 08/16/2022 Office Visit Cardiology Timothy Smith MD [address] [place] [phone] (Wo rk) documented as of this encounter Procedures Procedure Name Priority Date/Time Associated Diagnosis Comme nts BASIC METABOLIC Routine 11/25/2018 10:56 AM ACS (acute coronar y Results for this PANEL CAUSTIC STRENGTH INSPECTOR syndrome) (H) procedure are in the results section. documented in this encounter Results (ABNORMAL) Basic metabolic panel (11/25/2018 10:56 AM CAUSTIC STRENGTH INSPECTOR) Analysis Performed At Patho logist Time Signature Sodium 142 133 - 144 11/25/2018 [place] mmol/L 11:18 AM [facility] Potassium 4.3 3.4 - 5.3 11/25/2018 [facility] mmol/L 11:18 AM [facility] Chloride 106 94 - 109 11/25/2018 [place] mmol/L 11:18 AM [facility] Carbon Dioxide 33 (H) 20 - 32 11/25/2018 [facility] mmol/L 11:24 AM [facility] Anion Gap 3 3 - 14 11/25/2018 [facility] mmol/L 11:24 AM [facility] Glucose 131 (H) 70 - 99 11/25/2018 [place] mg/dL 11:24 AM [facility] Urea Nitrogen 32 (H) 7 - 30 11/25/2018 [place] mg/dL 11:24 AM [facility] Creatinine 1.43 (H) 0.66 - 11/25/2018 [facility] 1.25 mg/dL 11:24 AM [facility] GFR Estimate 46 (L) >60 11/25/2018 [place] mL/min/{1. 11:24 AM [facility] 73_m2} HOSPITAL Comment: Non GFR Calc Starting 09/17/2018, serum creatinine ba sed estimated GFR (eGFR) will be calculated using the Chronic Kidney Dise [facility] Epidemiology Collaboration (CKD-EPI) equation. GFR Estimate If 53 (L) >60 mL/min/{1.73_m2} 11/25/2018 11:24 AM [facility] Comment: GFR Calc Starting 09/17/2018, serum creatinine ba sed estimated GFR (eGFR) will be calculated using the Chronic Kidney Dise [facility] Epidemiology Collaboration (CKD-EPI) equation. Calcium 9.2 8.5 - 10.1 mg/dL 11/25/2018 11:24 AM [facility] Specimen Anatomical Collection Method Collection Time Receive d Time (Source) Location / / Volume Laterality Blood specimen 11/25/2018 10:56 9 (specimen) AM CAUSTIC STRENGTH INSPECTOR 10:59 AM CAUSTIC STRENGTH INSPECTOR Tammy Montenegro PA-C LAB - BLOOD ORDERABLES Performing Organization Address City/State/ZIP Code Phon e Number M [facility] [address] [place], [place] 55[address] [facility] [address] [place], [place] [address] [facility] [phone] documented in this encounter Visit Diagnoses Diagnosis ACS (acute coronary syndrome) (H) Intermediate coronary syndrome documented in this encounter Care Teams Dye Penetrant Testing Technician Relationship Specialty Start Date End Date Slava Hernandez PA-C PCP - General Physician Chief Human Resources Officer 07/02/18 06/29/21 [facility] [address] [place] [address] documented as of this encounter
--- OUTSIDE RECORDS SUMMARY | 2022-07-26 10:55 | XMS_ITS | Encounter Summary ---
:1940 Author Organization [place] Address [address] [place] [address] Care Team Providers Name Role Phone Slava Hernandez PA-C Primary Care Provider Encounter Details Date Type Department Care Team Description 11/20/2018 Documentation Only [facility] Tammy Montenegro ACS (acute coronary Heart Clinic [place] Torres PA-C syndrome) (H) [address] (Ria jing Dx) [facility] [address] [place] [phone] Social History Tobacco Use Types Packs/Day [...] testing. Pls add BMP to OV with Eldabrayan PreciadoSaadia IT RISK MODELER Temitope Tamayo RN - 11/20/2018 2:49 PM CST Spoke to [...] BMP to OV with Elda--Orders placed in [employer] for BMP and scheduling to call patient on 11/25to set up labs. SIENNA Okeefe IT RISK MODELER documented in this encounter Plan of Treatment Upcoming Encounters Date Type Specialty Care Team Description 08/16/2022 Ancillary Procedure Cardiology Timothy Smith MD [address] [place] [phone] (Wo rk) 08/16/2022 Office Visit Cardiology Timothy Smith MD [address] [place] [address] (Wo rk) documented as of this encounter Results (ABNORMAL) Basic metabolic panel (11/25/2018 10:56 AM [facility]) Analysis Performed At Patho logist Time Signature Sodium 142 133 - 144 11/25/2018 [facility] mmol/L 11:18 AM [facility] Potassium 4.3 3.4 - 5.3 11/25/2018 [facility] mmol/L 11:18 AM [facility] Chloride 106 94 - 109 11/25/2018 [facility] mmol/L 11:18 AM [facility] Carbon Dioxide 33 (H) 20 - 32 11/25/2018 [facility] mmol/L 11:24 AM [facility] Anion Gap 3 3 - 14 11/25/2018 [facility] mmol/L 11:24 AM [facility] Glucose 131 (H) 70 - 99 11/25/2018 [facility] mg/dL 11:24 AM [facility] Urea Nitrogen 32 (H) 7 - 30 11/25/2018 [facility] mg/dL 11:24 AM [facility] Creatinine 1.43 (H) 0.66 - 11/25/2018 [facility] 1.25 mg/dL 11:24 AM [facility] GFR Estimate 46 (L) >60 11/25/2018 [place] mL/min/{1. 11:24 AM [facility] 73_m2} HOSPITAL Comment: Non GFR Calc Starting 09/17/2018, serum creatinine ba sed estimated GFR (eGFR) will be calculated using the Chronic Kidney Dise [facility] Epidemiology Collaboration (CKD-EPI) equation. GFR Estimate If 53 (L) >60 mL/min/{1.73_m2} 11/25/2018 11:24 AM [facility] Comment: GFR Calc Starting 09/17/2018, serum creatinine ba sed estimated GFR (eGFR) will be calculated using the Chronic Kidney Dise [facility] Epidemiology Collaboration (CKD-EPI) equation. Calcium 9.2 8.5 - 10.1 mg/dL 11/25/2018 11:24 AM [facility] Specimen Anatomical Collection Method Collection Time Receive d Time (Source) Location / / Volume Laterality Blood specimen 11/25/2018 10:56 9 (specimen) AM CREDIT RISK MODELER 10:59 AM CREDIT RISK MODELER Tammy Montenegro PA-C LAB - BLOOD ORDERABLES Performing Organization Address City/State/ZIP Code Phon e Number M [facility] [address] [place], [place] [address] [facility] [address] [place], [place] [address] [place] [address] documented in this encounter Visit Diagnoses Diagnosis ACS (acute coronary syndrome) (H) - Prim arnie Intermediate coronary syndrome documented in this encounter Care Teams Rod Pointer Relationship Specialty Start Date End Date Slava Hernandez PA-C PCP - General Physician Immigration Inspector 07/02/18 06/29/21 [facility] [id number] [place] [address] documented as of this encounter
--- OUTSIDE RECORDS SUMMARY | 2022-07-26 10:55 | XMS_ITS | Encounter Summary ---
:1940 Author Organization [place] Address [address] [place] [address] Care Team Providers Name Role Phone Slava Hernandez PA-C Primary Care Provider Reason for Referral - Closed Specialty Diagnoses / Procedures Referred By Contact Refer red To Contact Diagnoses Persistent atrial fibrillation (H) Ankur Smith MD [address] [place] [address] Referral ID Status Reason Start Date Expiration Date Visits Requ ested Visits Authorized [id number] Closed 07/02/2018 07/02/2019 1 1 Reason for Visit Reason Comments Atrial Fib ekg done - Closed Specialty Diagnoses / Procedures Referred By Contact Refer red To Contact Diagnoses Persistent atrial fibrillation (H) Ankur Smith MD [address] [place] [address] Referral ID Status Reason Start Date Expiration Date Visits Requ ested Visits Authorized [id number] Closed 07/04/2018 07/04/2019 1 1 Encounter Details Date Type Department Care Team Description 07/02/[address] [facility] Ankur Smith MD Persistent atrial [facility] [address] fibrillation (H) [address] [facility] [address] [place] [address] [place] [phone] Social History Tobacco Use Types Packs/Day Years [...] see me in 10/2018. cc: [place] [address] ANKUR SMITH MD MT: AISHWARYA Name: RADHA VILLA MRN: [id number] Account: [id number] : 1940 Service Date: 07/02/2018 Document: [id number] Ankur Smith MD - 07/02/2018 9:30 AM CDT HPI and Plan: See dictation Orders Placed This Encounter Procedures ??? Follow-Up with Special Projects Coordinator No orders of the defined types were [...] MD [address] [place] [address] documented in this encounter Plan of Treatment Upcoming Encounters Date Type Specialty Care Team Description 08/16/2022 Ancillary Procedure Cardiology Ankur Smith MD [address] [place] [address] (Wo rk) 08/16/2022 Office Visit Cardiology Ankur Smith MD [address] [place] [address] (Wo rk) Scheduled Referrals Name Type Priority Associated Diagnoses Order S chedule Follow-Up with Referral Routine Persistent atrial Expected : Special Projects Coordinator fibrillation (H) 10/02 (Approximate), Expires: 07/02/2019 documented [...] fibrillation documented in this encounter Care Teams Freelance Displayer Relationship Specialty Start Date End Date Slava Hernandez, PA-C PCP - General Physician Preschool Assistant Director 07/02/18 06/29/21 [facility] [address] [place] [address] documented as of this encounter
--- OUTSIDE RECORDS SUMMARY | 2022-07-26 10:55 | XMS_ITS | Encounter Summary ---
:1940 Author Organization [place] Address [address] [place] [address] Care Team Providers Name Role Phone Slava Hernandez PA-C Primary Care Provider Encounter Details Date Type Department Care Team Description 11/18/[address] [facility] Tammy Montenegro [facility] Shilpi Torres PA-C [address] [facility] [address] [facility] [address] [place] [phone] [place] [id number] (Wo rk) Social History Tobacco Use Types [...] but reschedule to if it's snowing tomorrow. BILITATION PROGRAM MANAGER Temitope Tamayo RN - 11/18/2018 1:41 PM CST Message left for patient to review lab work and recommendations per HANK Jacobo. Awaiting return call. SIENNA Okeefe BILITATION PROGRAM MANAGER Temitope Tamayo RN - 11/18/2018 1:41 PM [...] to follow up next week. Patient requesting [place] location. Appointment scheduled for 11/27 with Elda Johnson. Instructed patient to call clinic if he had any questions or concerns. Patient provided verbal understanding of above. SIENNA Okeefe BILITATION PROGRAM MANAGER documented in this encounter Plan of Treatment Upcoming Encounters Date Type Specialty Care Team Description 08/16/2022 Ancillary Procedure Cardiology Timothy Smith MD [address] [place] [address] (Wo rk) 08/16/2022 Office Visit Cardiology Timothy Smith MD [address] [place] [address] (Wo rk) documented as of this encounter Visit Diagnoses Not on filedocumented in this encounter Care Teams Mold Maker Plastic Molds Relationship Specialty Start Date End Date Slava Hernandez PA-C PCP - General Physician Supervisor Alteration Workroom 07/02/18 06/29/21 [facility] [address] [place] [address] documented as of this encounter
--- OUTSIDE RECORDS SUMMARY | 2022-07-26 10:55 | XMS_ITS | Encounter Summary ---
:1940 Author Organization [place] Address [facility] [place] [address] Care Team Providers Name Role Phone Mary Slava Estrella PA-C Primary Care Provider Encounter Details Date Type Department Care Team Description 09/27/2018 Telephone [facility] Heart Zarina Smith MD [facility] [address] [place] [address] [facility] [address] [place] [address] [phone] Social History Tobacco Use Types Packs/Day Years [...] call ed to let pharmacy know-yvette cummins STED LIVING CARE MANAGER documented in this encounter Plan of Treatment Upcoming Encounters Date Type Specialty Care Team Description 08/16/2022 Ancillary Procedure Cardiology Timothy Smith MD [address] [place], [place] [address] (Wo rk) 08/16/2022 Office Visit Cardiology Timothy Smith MD [address] [place] [address] (Wo rk) documented as of this encounter Visit Diagnoses Not on filedocumented in this encounter Care Teams Sealing And Canceling Machine Operator Relationship Specialty Start Date End Date Slava Hernandez PAIlanaC PCP - General Physician Paper Products Inspector 07/02/18 06/29/21 [facility] [address] [place] [address] documented as of this encounter
--- OUTSIDE RECORDS SUMMARY | 2022-07-26 10:55 | XMS_ITS | Encounter Summary ---
:1940 Author Organization [place] Address [address] [facility] [place] [address] Care Team Providers Name Role Phone Slava Hernandez PA-C Primary Care Provider Reason for Visit CV Testing - Closed Specialty Diagnoses / Procedures Referred By Contact Refer red To Contact Diagnoses Pacemaker Basil Guadalupe MD Procedures Cardiac Device Check - Remote [address] [place] [address] Referral ID Status Reason Start Date Expiration Date Visits Requ ested Visits Authorized [id number] Closed 11/14/2018 11/14/2019 1 1 Encounter Details Date Type Department Care Team Description 11/14/2018 Ancillary Procedure [facility] [address] [facility] [address] [facility] [address] [place] [address] [place] [address] [phone] Social History Tobacco Use Types Packs/Day Years [...] [address] [place] [address] (Wo rk) 08/16/2022 Office Visit Cardiology Timothy Smith MD [address] [place] [address] (Wo rk) documented as of this encounter Procedures Procedure Name Priority Date/Time Associated Diagnosis Comme nts COURTESY DEVICE Routine 11/14/2018 11:19 AM Pacemaker Resul ts for this CHECK PUBLIC RELATIONS MANAGER procedure are i n the results section. documented in this encounter Results COURTESY DEVICE CHECK (11/14/2018 11:19 AM PUBLIC RELATIONS MANAGER) Component Value Ref Test Analysis Performed Pathologis t Range Method Time At Signature Date Time [id number] [employer] Interrogation Session Implantable [employer] Pulse Generator Forest Officer Implantable L121 ESSENTIO EL [employer]ONIC Pulse Generator Model Implantable [id number] [employer] Pulse Generator Serial Number Type Remote [employer] Interrogation Session Clinic Name [facility] Implantable Pacemaker [employer]ONIC Pulse Generator Type Implantable [id number] [employer] Pulse Generator Implant Date Implantable Lead [facility] RAUL Forest Officer Implantable Lead 2088TC Tendril MEDTRONI C Model STS Implantable Lead [id number] [employer] Serial Number Implantable Lead [id number] [employer]IC Implant Date Implantable Lead Bipolar Lead [employer] Polarity Type Implantable Lead UNKNOWN [employer] Location Detail 1 Implantable Lead Right Atrium [employer] Location Implantable Lead [facility] [facility] [employer] RAUL Forest Officer Implantable Lead 2088TC Tendril MEDTRONI C Model STS Implantable Lead [id number] [employer] Serial Number Implantable Lead [id number] [employer]IC Implant Date Implantable Lead Bipolar Lead [...] [employer]TRONIC Pacing Threshold Pulse Width Battery Date [id number] [employer] Time of Measurements Battery Status Beginning of [employer]TR[employer] Service Battery 108 mo [employer] Remaining Longevity Battery 100 % [employer] Remaining Percentage Brandon Statistic [id number] [employer]TRONIC Date Time Start Brandon Statistic [id number] [employer]TRONIC Date Time End Brandon Statistic 0 % [employer] RA Percent Paced Brandon Statistic 48 % [employer] RV Percent Paced Atrial Tachy 74663320285921 MEDTRONIC Statistic Date Time Start Atrial Tachy 14142847269742 [employer]TR[employer]IC Statistic Date Time End Atrial Tachy 80 % MEDTRONIC Statistic AT/AF [place] Percent Episode 497 [employer]TRONIC Statistic Recent Count [...] [place] MEDTRONIC Statistic Vendor Type Category Episode [id number] MEDTRONIC Statistic Recent Date Time Start Episode [id number] [employer]TRONIC Statistic Recent Date Time End Episode [id number] MEDTRONIC Statistic Recent Date Time Start Episode [id number] MEDTRONIC Statistic Recent Date Time End Episode [id number] MEDTRONIC Statistic Recent Date Time Start Episode [id number] [employer]TRONIC Statistic Recent Date Time End Episode [id number] [employer]TRONIC Statistic Recent Date Time Start Episode [id number] MEDTRONIC Statistic Recent Date Time End Episode [id number] [employer]IC Identifier Episode Type Other [employer]TRONIC Category Episode Date [id number] MEDTRONIC Time Episode V-1438 MEDTRONIC Identifier Episode Type [place] [employer]IC Category Episode Date [id number] [employer]IC Time Episode Duration 14 s MEDTRONIC Episode V-1437 MEDTRONIC Identifier Episode Type [place] MEDTRONIC Category Episode Date [id number] MEDTRONIC Time Episode Duration 12 s MEDTRONIC Episode V-1436 MEDTRONIC Identifier Episode Type VT MEDTRONIC Category Episode Date [id number] MEDTRONIC Time Episode Duration 12 s MEDTRONIC Episode V-1435 MEDTRONIC Identifier Episode Type [place] MEDTRONIC Category Episode Date [id number] MEDTRONIC Time Episode Duration 12 s MEDTRONIC Episode V-1434 MEDTRONIC Identifier Episode Type SVT MEDTRONIC Category Episode Vendor SVT MEDTRONIC Type Category Episode Date [id number] MEDTRONIC Time Episode Duration 74 s MEDTRONIC Episode V-1433 MEDTRONIC Identifier Episode Type [place] MEDTRONIC Category Episode Date [id number] MEDTRONIC Time Episode Duration 13 s MEDTRONIC Episode V-1432 MEDTRONIC Identifier Episode Type VT MEDTRONIC Category Episode Date [id number] MEDTRONIC Time Episode Duration 18 s MEDTRONIC Episode V-1431 MEDTRONIC Identifier Episode Type [place] MEDTRONIC Category Episode Date [id number] MEDTRONIC Time Episode Duration 11 s MEDTRONIC Episode V-1430 MEDTRONIC Identifier Episode Type [place] [employer]TRONIC Category Episode Date [id number] MEDTRONIC Time Episode Duration 12 s MEDTRONIC Episode ATR-6504 MEDTRONIC Identifier Episode Type AT/AF [employer]IC Category Episode Date [id number] MEDTRONIC Time Episode V-1429 MEDTRONIC Identifier Episode Type [place] MEDTRONIC Category Episode Date [id number] MEDTRONIC Time Episode Duration 12 s MEDTRONIC Episode V-1428 MEDTRONIC Identifier Episode Type VT MEDTRONIC Category Episode Date [id number] MEDTRONIC Time Episode Duration 12 s MEDTRONIC Episode APM-87 MEDTRONIC Identifier Episode Type Periodic EGM [employer]IC Category Episode Date [id number] [employer] Time Anatomical Region Laterality Modality Other Specimen (Source) Anatomical Collection Method Collection Time Re ceived Time Location / / Volume Laterality 11/14/2018 4:55 PM PUBLIC RELATIONS MANAGER Narrative 11/20/2018 2:33 PM PUBLIC RELATIONS MANAGER courtesy check: Pt calling to report CHF [...] situ documented in this encounter Care Teams Guest Relations Coordinator Relationship Specialty Start Date End Date Slava Hernandez, JOSÉ MIGUELC PCP - General Physician Die Sinker 07/02/18 06/29/21 [place] [id number] documented as of this encounter
--- OUTSIDE RECORDS SUMMARY | 2022-07-26 10:55 | XMS_ITS | Encounter Summary ---
:1940 Author Organization [place] Address [address] [facility] [place] [address] Care Team Providers Name Role Phone Slava Hernandez PA-C Primary Care Provider Reason for Visit Reason Onset Date Comments Clinic Care Coordination - Initial 11/26/2018 [facility] OV Encounter Details Date Type Department Care Team Description 11/26/2018 Telephone [facility] Heart Lacy [place] C linic Care Coordination Clinic [facility] RN - Initial (change OV) [address] [facility] [address] [place] [address] Social History Tobacco Use Types [...] mix up and pt will come to [facility] on at 1050 and seeMaureen. Pt had BMP on 11/25. . Jing R ANALYST Telephone Encounter - Lacy [place] RN - 11/26/2018 8:19 AM CST LM with pt to have pt call back to discuss his OV scheduled for tomorrow and that it is not scheduled with enough time. MESHAelsonRN R ANALYST documented in this encounter Plan of Treatment Upcoming Encounters Date Type Specialty Care Team Description 08/16/2022 Ancillary Procedure Cardiology Timothy Smith MD [address] [place] [address] (Wo rk) 08/16/2022 Office Visit Cardiology Timothy Smith MD [address] [place] [address] (Wo rk) documented as of this encounter Visit Diagnoses Not on filedocumented in this encounter Care Teams Child Watch Attendant Relationship Specialty Start Date End Date Slava Hernandez, PAIlanaC PCP - General Physician International Operations Manager 07/02/18 06/29/21 [facility] [address] [place] [address] documented as of this encounter
--- OUTSIDE RECORDS SUMMARY | 2022-07-26 10:55 | XMS_ITS | Encounter Summary ---
:1940 Author Organization [place] Address [facility] [place] [address] Care Team Providers Name Role Phone Clinic, [facility] Primary Care Provider [phone] Reason for Visit Reason Onset Date Comments Refill Request 06/25/2018 eliquis Encounter Details Date Type Department Care Team Description 06/25/2018 Refill [facility] Heart Zarina Smith MD Refill Request (eliquis) [facility] [place] [address] [facility] [address] [place] [address] [place] [address] [phone] Social History Tobacco Use Types Packs/Day Years [...] [address] [place] [phone] (Wo rk) 08/16/2022 Office Visit Cardiology Timothy Smith MD [address] [place] [address] (Wo rk) documented as of this encounter Visit Diagnoses Diagnosis Paroxysmal atrial fibrillation (H) Atrial fibrillation documented in this encounter Care Teams Uptwister Tender Relationship Specialty Start Date End Date Clinic, Vinny Jaimes PCP - General 01/16/18 07/01/18 [address] [place] [address] documented as of this encounter
--- OUTSIDE RECORDS SUMMARY | 2022-07-26 10:55 | XMS_ITS | Encounter Summary ---
:1940 Author Organization [place] Address [address] [place] [address] Care Team Providers Name Role Phone Mary Slava Estrella PA-C Primary Care Provider Reason for Visit Reason Onset Date Comments Prior Auth - Medication 10/02/2018 apixaban ANTICOA GULANT (ELIQUIS) 5 MG tablet- Tier Exception Denied Encounter Details Date Type Department Care Team Description 10/02/2018 Telephone [facility] Timothy Smith MD Prior Auth - Medication [facility] [place] [address] (apixaban ANTICOAGULANT [address] (ELIQUIS) 5 MG tablet- [facility] [address] [place] [address] Tier Exception Denied) [place] [phone] Social History Tobacco Use Types Packs/Day Years [...] is requesting his refills to go to [facility]. Needing eliquis. Sent script to pharmacy. SIENNA Okeefe NG MACHINE TENDER Telephone Encounter - Lacy Washington RN - 10/29/2018 10:19 AM CST Pt called as he needs a couple of weeks of samples of Eliquis to make it until his new insurance card arrives. Have placed 3 weeks for pt to cloth picker. Jing NG MACHINE TENDER Telephone Encounter - Lacy [place] RN - 10/28/2018 7:32 AM CST Pt called and LM and stated that he has changed his insurance from [employer] to [employer] and will bring in his card when it arrives in the mail. Will then do a new PA if needed. Jing NG MACHINE TENDER Telephone Encounter - Lacy [place] RN - 10/22/2018 4:24 PM CST LM for pt to call back to discuss the Eliquis tier exception denial. Jing NG MACHINE TENDER Telephone Encounter - Catherine Aranda LPN - [...] PA-message to EP Team Dr Smith-yvette mena NG MACHINE TENDER Telephone Encounter - Yareli Tamez - 10/07/2018 [...] necessity to our PA Team. Appeal Information: NG MACHINE TENDER Telephone Encounter - Yareli Tamez - 10/03/2018 12:54 PM CST Images from the original note were not included. Central Prior Authorization Team Ter Exception Renewal Initiation Medication: apixaban ANTICOAGULANT (ELIQUIS) 5 MG tablet Insurance Company: [employer] - Pharmacy Filling the Rx: [facility] MAIL DELIVERY - [address] Filling Pharmacy Filling Pharmacy Fax: Start Date: 10/03/2018 NG MACHINE TENDER Telephone Encounter - Kitty Sierra - 10/02/2018 10:12 AM CST TIER EXCEPTION RENEWAL Prior Authorization Retail Medication Request Medication/Dose: apixaban ANTICOAGULANT (ELIQUIS) 5 MG tablet ICD code (if different than what is on RX): Paroxysmal atrial fibrillation (H) [I48.0] Previously Tried and Failed: See chart Rationale: Needs renewal on Tier exception Patient called to start process Insurance Name: [employer] BIN: [id number] PCN: [id number] Pharmacy Information (if different than what is on RX) Name: [facility] MAIL DELIV[facility] NG MACHINE TENDER documented in this encounter Plan of Treatment Upcoming Encounters Date Type Specialty Care Team Description 08/16/2022 Ancillary Procedure Cardiology Timothy Smith MD [address] [place] [id number] (Wo rk) 08/16/2022 Office Visit Cardiology Timothy Smith MD [address] [place] [address] (Wo rk) documented as of this encounter Visit Diagnoses Diagnosis Paroxysmal atrial fibrillation (H) Atrial fibrillation documented in this encounter Care Teams Gallery Manager Relationship Specialty Start Date End Date Slava Hernandez PA-C PCP - General Physician Rig Site Engineer 07/02/18 06/29/21 [facility] [address] [place] [address] documented as of this encounter
--- OUTSIDE RECORDS SUMMARY | 2022-07-26 10:55 | XMS_ITS | Encounter Summary ---
:1940 Author Organization [place] Address [address] [place] [address] Care Team Providers Name Role Phone [facility] [place] Primary Care Provider [phone] Encounter Details Date Type Department Care Team Description 06/19/2018 Documentation Only [facility] Heart Outside, [facility] [place] [address] [facility] [address] [place] [phone] Social History Tobacco Use Types Packs/Day Years [...] Smith MD [address] [place], [place] [phone] (Wo rk) 08/16/2022 Office Visit Cardiology Timothy Sim[place] MD [address] [place] [phone] (Wo rk) documented as of this encounter Procedures Procedure Name Priority Date/Time Associated Diagnosis Comme nts BASIC METABOLIC PANEL Routine 06/13/2018 Result s for this procedure are i n the results section . documented in this encounter Results (ABNORMAL) Basic metabolic panel (06/13/2018) [facility] Method Time Signature Sodium 138 135 - 145 [facility] mmol/L [facility] Potassium 4.6 3.5 - 5.0 [facility] mmol/L [facility] Chloride 103 98 - 110 [facility] mmol/L [facility] Carbon Dioxide 25 21 - 31 [facility] mmol/L [facility] Anion Gap 10 5 - 18 [facility] mmol/L [facility] Glucose 184 (A) 65 - 99 [facility] mg/dL [facility] Urea Nitrogen 34 (A) 8 - 25 [facility] mg/dL [facility] Creatinine 1.34 (A) 0.72 - [facility] 1.25 mg/dL [facility] Calcium 10 8.5 - 10.5 [facility] mg/dL [facility] GFR Estimate 51 (A) 60 [facility] ml/min/1.7 LAB-C[facility]AL 3m2 LABORATORY GFR Estimate If >60 60 [facility] Black ml/min/1.7 [facility] 3m2 LABORATORY Specimen (Source) Anatomical Location Collection Method / Collectio n Time Received Time / Laterality Volume Blood specimen 06/13/2018 (specimen) Patient Reported LAB - BLOOD ORDERABLES Performing Organization Address City/State/ZIP Code Phon e Number [employer] [facility] [address] [place] [address] LABORATORY [address] documented in this encounter Visit Diagnoses Not on filedocumented in this encounter Care Teams Ginning Operator Relationship Specialty Start Date End Date [facility], [facility] PCP - General 01/16/18 07/01/18 [address] [place] [address] documented as of this encounter
--- OUTSIDE RECORDS SUMMARY | 2022-07-26 10:55 | XMS_ITS | Encounter Summary ---
:1940 Author Organization [place] Address [address] [place] [address] Care Team Providers Name Role Phone Slava Hernandez PA-C Primary Care Provider Encounter Details Date Type Department Care Team Description 11/18/2018 [facility] Heart Paro xysmal atrial fibrillation (H); [facility] [place] Cardiomyopathy, unspecified type (H); [address] [facility] Ischemi c cardiomyopathy [address] [place] [address] Social History Tobacco Use Types [...] [address] [place] [phone] (Wo rk) 08/16/2022 Office Visit Cardiology Timothy Smith MD [address] [place] [phone] (Wo rk) documented as of this encounter Procedures Procedure Name Priority Date/Time Associated Diagnosis Comme nts BASIC METABOLIC Routine 11/18/2018 10:02 Paroxysmal atrial Res ults for this PANEL AM TRACK GRINDER OPERATOR fibrillation (H) procedure are in Cardiomyopathy, the results unspecified type (H) section. Ischemic cardiomyopathy documented in this encounter Results (ABNORMAL) Basic metabolic panel (11/18/2018 10:02 AM [facility]) Analysis Performed At Patho logist Time Signature Sodium 144 133 - 144 11/18/2018 [facility] mmol/L 10:39 AM [facility] Potassium 3.8 3.4 - 5.3 11/18/2018 [facility] mmol/L 10:39 AM [facility] Chloride 105 94 - 109 11/18/2018 [facility] mmol/L 10:39 AM [facility] Carbon Dioxide 33 (H) 20 - 32 11/18/2018 [facility] mmol/L 10:46 AM [facility] Anion Gap 6 3 - 14 11/18/2018 [facility] mmol/L 10:46 AM [facility] Glucose 146 (H) 70 - 99 11/18/2018 [facility] mg/dL 10:46 AM [facility] Urea Nitrogen 30 7 - 30 11/18/2018 [facility] mg/dL 10:46 AM [facility] Creatinine 1.35 (H) 0.66 - 11/18/2018 [facility] 1.25 mg/dL 10:46 AM [facility] GFR Estimate 49 (L) >60 11/18/2018 [place] mL/min/{1. 10:46 AM [facility] 73_m2} HOSPITAL Comment: Non GFR Calc Starting 09/17/2018, serum creatinine ba sed estimated GFR (eGFR) will be calculated using the Chronic Kidney Dise [facility] Epidemiology Collaboration (CKD-EPI) equation. GFR Estimate If 57 (L) >60 mL/min/{1.73_m2} 11/18/2018 10:46 AM [facility] Comment: GFR Calc Starting 09/17/2018, serum creatinine ba sed estimated GFR (eGFR) will be calculated using the Chronic Kidney Dise [facility] Epidemiology Collaboration (CKD-EPI) equation. Calcium 9.2 8.5 - 10.1 mg/dL 11/18/2018 10:46 AM [facility] Specimen Anatomical Collection Method Collection Time Receive d Time (Source) Location / / Volume Laterality Blood specimen 11/18/2018 10:02 9 (specimen) AM TRACK GRINDER OPERATOR 10:07 AM [facility] Tammy Montenegro PA-C LAB - BLOOD ORDERABLES Performing Organization Address City/State/ZIP Code Phon e Number [facility] [address] [place], [place] [address] [facility] [address] [place], [place] [address] [place] [address] documented in this encounter Visit Diagnoses Diagnosis Paroxysmal atrial fibrillation (H) Atrial fibrillation Cardiomyopathy, unspecified type (H) Ischemic cardiomyopathy Other specified forms of chronic ischemi c heart disease documented in this encounter Care Teams Program Host Relationship Specialty Start Date End Date Slava Hernandez PA-C PCP - General Physician Construction Helper 07/02/18 06/29/21 [facility] [address] [place] [address] documented as of this encounter
--- OUTSIDE RECORDS SUMMARY | 2022-07-26 10:55 | XMS_ITS | Encounter Summary ---
:1940 Author Organization [place] Address [address] [place] [address] Care Team Providers Name Role Phone Slava Hernandez PA-C Primary Care Provider Encounter Details Date Type Department Care Team Description 11/14/2018 Telephone [facility] Robert Norris, SIENNA, [facility] Heart Care RN [address] [facility] [address] [facility] [address] [place] [address] [place] [address] [phone] (Wo rk) Social History Tobacco Use Types Packs/Day Years Used Date Smoking Tobacco: Never Smokeless Tobacco: Never Alcohol Use Standard Drinks/Week Comments No 0 (1 standard drink = 0.6 oz pure alcoho l) Sex Assigned at Date Recorded Not on file documented as of this encounter Miscellaneous Notes Telephone Encounter - Mary Norris, RN, RN - 11/14/2018 11:02 AM WORM GROWER Pt calling to report CHF symptoms of [...] RVR since 05/18 but none since 10/17/18. GROWER documented in this encounter Plan of Treatment Upcoming Encounters Date Type Specialty Care Team Description 08/16/2022 Ancillary Procedure Cardiology Timothy Smith MD [address] [place] [phone] (Wo rk) 08/16/2022 Office Visit Cardiology Timothy Smith MD [address] [place] [address] (Wo rk) documented as of this encounter Visit Diagnoses Not on filedocumented in this encounter Care Teams Avian Keeper Relationship Specialty Start Date End Date Slava Hernandez PAIlanaC PCP - General Physician Special Education Para Professional 07/02/18 06/29/21 [facility] [id number] [place] [address] documented as of this encounter
--- OUTSIDE RECORDS SUMMARY | 2022-07-26 10:55 | XMS_ITS | Encounter Summary ---
:1940 Author Organization [place] Address [facility] [place] [address] Care Team Providers Name Role Phone Mary Slava Estrella PA-C Primary Care Provider Reason for Visit Reason Comments Pacemaker Check PPM Latitude NXT Encounter Details Date Type Department Care Team Description 08/27/2018 Allied Health/Nurse [facility] Pac emaker Check (PPM Visit [facility] [place] Latitude NXT) [address] [place] [address] [address] [place] [address] Social History Tobacco Use Types Packs/Day Years Used Date Smoking Tobacco: Never Smokeless Tobacco: Never Alcohol Use Standard Drinks/Week Comments No 0 (1 standard drink = 0.6 oz pure alcoho l) Sex Assigned at Date Recorded Not on file documented as of this encounter Progress Notes Sary Riojas - 08/27/2018 4:30 PM CST [employer] EL L121 (D) Remote PPM Device Check AP: 0% FISH BAIT PICKER: 41% Mode: DDDR Presenting Rhythm: Afib with FISH BAIT PICKER Heart Rate: histogram shows good rate variation [...] over the phone to pt. Darius PAL OR MERCHANT documented in this encounter Plan of Treatment Upcoming Encounters Date Type Specialty Care Team Description 08/16/2022 Ancillary Procedure Cardiology Timothy Smith MD [address] [place] [address] (Wo rk) 08/16/2022 Office Visit Cardiology Timothy Smith MD [address] [place] [address] (Wo rk) documented as of this encounter Procedures Procedure Name Priority Date/Time Associated Diagnosis Comme [facility] ZC PM DEVICE Routine 08/27/2018 10:09 AM Cardiac pacemaker in INTERROGATE REMOTE, UP LIQUOR MERCHANT situ TO 90 DAYS, LEAD/LEADLESS HC INTERR DEVICE EVAL Routine 08/27/2018 Cardiac pacemaker i n REMOTE, PM/LDLS PM/ICD, situ UP TO 90 DAYS documented in this encounter Results INTERROGATION DEVICE EVAL REMOTE, PACER/ICD (65943) (08/27/2018) Narrative This result has an attachment that is no t available. Steven Canchola MD PROCEDURES documented in this encounter Visit Diagnoses Diagnosis Cardiac pacemaker in situ - Primary documented in this encounter Care Teams Biblical Languages Professor Relationship Specialty Start Date End Date Slava Hernandez PA-C PCP - General Physician Flower Arranger 07/02/18 06/29/21 [facility] [id number] [place] [address] documented as of this encounter
--- OUTSIDE RECORDS SUMMARY | 2022-07-26 10:55 | XMS_ITS | Encounter Summary ---
:1940 Author Organization [place] Address [address] [facility] [place] [address] Care Team Providers Name Role Phone Slava Hernandez PA-C Primary Care Provider Reason for Referral Diagnostic Imaging XR - Closed Specialty Diagnoses / Procedures Referred By Contact Refer red To Contact Radiology. Diagnoses Calculus of kidney Shea Rivera PA-C Rh Xray Procedures XR KUB [[id number]] [address] [place] [address] [place], [place] [phone] Fax: Referral ID Status Reason Start Date Expiration Date Visits Requ ested Visits Authorized [id number] Closed 10/23/2018 10/23/2019 1 1 [facility] AFFAIRS MANAGER Reason for Visit Diagnostic Imaging XR - Closed Specialty Diagnoses / Procedures Referred By Contact Refer red To Contact Radiology. Diagnoses Calculus of kidney Shea Rivera PA-C Rh Xray Procedures XR KUB [[id number]] [address] [place] [address] [place], [place] [phone] Fax: Referral ID Status Reason Start Date Expiration Date Visits Requ ested Visits Authorized [id number] Closed 10/23/2018 10/23/2019 1 1 Encounter Details Date Type Department Care Team Description 10/23/[address] [facility] MiguelShea, Calculus of kidney [facility] PA-C [address] [place] [address] [place] [phone] [place] [address] [phone] Social History Tobacco Use Types Packs/Day Years [...] [address] [place] [address] (Fiorella olvera) 08/16/2022 Office Visit Cardiology Timothy Smith MD [address] [place] [phone] (Fiorella olvera) documented as of this encounter Procedures Procedure Name Priority Date/Time Associated Diagnosis Comme nts XR KUB Routine 10/23/2018 2:27 PM Calculus of kidney Res ults for this GLOBAL REGULATORY AFFAIRS MANAGER procedure are i n the results section . documented in this encounter Results XR KUB [[id number]] (10/23/2018 2:27 PM GLOBAL REGULATORY AFFAIRS MANAGER) Anatomical Region Laterality Modality Abdomen/Pelvis Digital Radiography Specimen (Source) Anatomical Location Collection Method / Collectio n Time Received Time / Laterality Volume Impressions 10/23/2018 2:44 PM GLOBAL REGULATORY AFFAIRS MANAGER IMPRESSION: No specific evidence of the previously seen distal ureteral stone. JEFFREY PA MD Narrative 10/23/2018 2:44 PM GLOBAL REGULATORY AFFAIRS MANAGER XR KUB 10/23/2018 2:27 PM HISTORY: Left [...] kidney documented in this encounter Care Teams Head Of Advertising Relationship Specialty Start Date End Date Slava Hernandez PA-C PCP - General Physician Basketball Referee 07/02/18 06/29/[address] [address] documented as of this encounter
--- OUTSIDE RECORDS SUMMARY | 2022-07-26 10:55 | XMS_ITS | Encounter Summary ---
:1940 Author Organization [place] Address [address] [facility] [place] [address] Care Team Providers Name Role Phone Slava Hernandez PA-C Primary Care Provider Reason for Referral - Closed Specialty Diagnoses / Procedures Referred By Contact Refer red To Contact Diagnoses Paroxysmal atrial fibrillation (H) Cardiomyopathy, unspecified type (H) Ischemic cardiomyopathy Tammy Montenegro PA-C [address] [place] [address] Referral ID Status Reason Start Date Expiration Date Visits Requ ested Visits Authorized [id number] Closed 11/15/2018 11/15/2019 1 1 ICULUM ASSISTANT CV Testing (Routine) - Closed Specialty Diagnoses [...] PERICARDIOCENTESIS HC ECHO MYOCARD BX MARIBEL Torres [address] [address] C INJECTION, PERFLUTREN LIPI D MICROSPHERES, PER ML HC STATISTIC IV PUSH SINGLE INITIAL SUBSTANCE [address] [place] [address] [place] [address] Phone: Fax: Referral ID Status Reason Start Date Expiration Date Visits Requ ested Visits Authorized [id number] Closed 11/15/2018 11/15/2019 1 1 ICULUM ASSISTANT Reason for Visit Reason Comments Edema Fatigue Encounter Details Date Type Department Care Team Description 11/15/2018 Office Visit [facility] Tammy Montenegro Cardio myopathy, unspecified type (H) (Primary Dx); [facility] Shilpi Torres PA-C Paroxysmal atrial fibrillation (H); [address] [facility] [address] [facility] [address] SSS (sick sinus syndrome) (H); [facility] [address] Ischemic cardiomyopathy; [place] [address] [place] [address] 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 [phone] (Wo rk) Social History Tobacco Use Types Packs/Day Years Used Date Smoking Tobacco: Never Smokeless Tobacco: Never Alcohol Use Standard Drinks/Week Comments No 0 (1 standard drink = 0.6 oz pure alcoho l) Sex Assigned at Date Recorded Not on file documented as of this encounter Last Filed Vital Signs Vital Sign Reading Time Taken Comments Blood Pressure 123/70 11/15/2018 1:00 PM CURRICULUM ASSISTANT Pulse 80 11/15/2018 1:00 PM CURRICULUM ASSISTANT Temperature - - Respiratory Rate - - Oxygen Saturation - - Inhaled Oxygen Concentration - - Weight 142.9 kg (315 lb) 11/15/2018 1:00 PM CURRICULUM ASSISTANT Height 180.3 cm (5' 11) 11/15/2018 1:00 PM CURRICULUM ASSISTANT Body Mass Index 43.93 11/15/2018 1:00 PM CURRICULUM ASSISTANT documented in this encounter Patient Instructions Patient InstructionsTammy Montenegro PA-C - 11/15/2018 1:10 PM CURRICULUM ASSISTANT 1. Reviewed increased swelling and shortness of [...] with rest. 4. My nurses are Lacy/Pat: [phone] ICULUM ASSISTANT documented in this encounter Progress Notes Tammy [...] 4. Sinus node dysfunction status post dual-chamber [employer] pacemaker 01/2016. He did not ever [...] EKG today, which I overread, showed intermittent ORDER WORKER @ 76 bpm with 2 PVCs of [...] Ischemic cardiomyopathy ??? 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 Parent/sibling w/ CABG, GA or angioplasty before 65F 55M? No ??? [...] GFRESTBLACK 58 (L) 07/04/2018 [place] 9.3 07/04/2018 ICULUM ASSISTANT documented in this encounter Plan of Treatment Upcoming Encounters Date Type Specialty Care Team Description 08/16/2022 Ancillary Procedure Cardiology Timothy Smith MD [address] [place] [id number] (Wo wade) 08/16/2022 Office Visit Cardiology Timothy Smith MD [address] [place] [id number] (Fiorella olvera) Scheduled Referrals Name Type Priority [...] Resu lts for this COMPLETE W/READ - CURRICULUM ASSISTANT fibrillation (H) proced ure are in CLINICS the results section. documented in this encounter Results ECHO COMPLETE (11/18/2018 11:17 AM CURRICULUM ASSISTANT) Anatomical Region Laterality Modality Echocardiography Specimen (Source) Anatomical Collection Method Collection Time Re ceived Time Location / / Volume Laterality 11/18/2018 10:35 AM CURRICULUM ASSISTANT Narrative 11/19/2018 3:59 PM [facility] [id number]^BELEN^TAMMY^JUSTEN [facility] Echocardiography Laboratory [address] [place] [address] Name: RAHDA VILLA : 1940 Study Date: 11/18/2018 10:35 AM Age: 78 yrs Gender: Male Patient Location: [facility] Reason For Study: Paroxysmal atrial fibr illation [...] note might be different from the original. [id number]^BELEN^TAMMY^[facility] Echocardiography Laboratory [address] [place] [address] Name: RADHA VILLA : 1940 Study Date: 11/18/2018 10:35 AM Age: 78 yrs Gender: Male Patient Location: [facility] Reason For Study: Paroxysmal atrial fibr illation [...] (ABNORMAL) Basic metabolic panel (11/18/2018 10:02 AM [facility]) Analysis Performed At Patho logist Time Signature Sodium 144 133 - 144 11/18/2018 [facility] mmol/L 10:39 AM [facility] Potassium 3.8 3.4 - 5.3 11/18/2018 [facility] mmol/L 10:39 AM [facility] Chloride 105 94 - 109 11/18/2018 [facility] mmol/L 10:39 AM [facility] Carbon Dioxide 33 (H) 20 - 32 11/18/2018 [facility] mmol/L 10:46 AM [facility] Anion Gap 6 3 - 14 11/18/2018 [facility] mmol/L 10:46 AM [facility] Glucose 146 (H) 70 - 99 11/18/2018 [place] mg/dL 10:46 AM [facility] Urea Nitrogen 30 7 - 30 11/18/2018 [place] mg/dL 10:46 AM [facility] Creatinine 1.35 (H) 0.66 - 11/18/2018 [facility] 1.25 mg/dL 10:46 AM [facility] GFR Estimate 49 (L) >60 11/18/2018 [place] mL/min/{1. 10:46 AM [facility] 73_m2} HOSPITAL Comment: Non GFR Calc Starting 09/17/2018, serum creatinine ba sed estimated GFR (eGFR) will be calculated using the Chronic Kidney Dise [facility] Epidemiology Collaboration (CKD-EPI) equation. GFR Estimate If 57 (L) >60 mL/min/{1.73_m2} 11/18/2018 10:46 AM [facility] Comment: GFR Calc Starting 09/17/2018, serum creatinine ba sed estimated GFR (eGFR) will be calculated using the Chronic Kidney Dise [facility] Epidemiology Collaboration (CKD-EPI) equation. Calcium 9.2 8.5 - 10.1 mg/dL 11/18/2018 10:[address] [facility] Specimen Anatomical Collection Method Collection Time Receive d Time (Source) Location / / Volume Laterality Blood specimen 11/18/2018 10:02 9 (specimen) AM CURRICULUM ASSISTANT 10:07 AM [facility] Tammy Montenegro PA-C LAB - BLOOD ORDERABLES Performing Organization Address City/State/ZIP Code Phon e Number M [facility] [address] [place], [place] [address] [facility] [address] [place], [place] [address] [facility] [phone] EKG 12-lead complete w/read - Clinics (performed today) (11/15/2018 4:45 PM CURRICULUM ASSISTANT) Narrative This result has an attachment that is no t available. 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
--- OUTSIDE RECORDS SUMMARY | 2022-07-26 10:55 | XMS_ITS | Encounter Summary ---
:1940 Author Organization [place] Address [address] [place] [address] Care Team Providers Name Role Phone Slava Hernandez PA-C Primary Care Provider Reason for Visit Reason Comments Abdominal Pain Encounter Details Date Type Department Care Team Description 07/04/2018 - Emergency [facility] Essie Sanchez Nephr olithiasis 07/05/2018 [facility] Emergency Dep t MD Tamanna [address] [facility] [place] [address] [address] [facility] [phone] [place], [place] [address] (Wo rk) Social History [...] contain Tylenol (acetaminophen), including Vicodin, Tylenol #3, [place], Lortab, and Percocet. You should not take [...] but it was normal and denies diarrhea. [id number], he states that he developed left lower [...] for refractory symptoms. 4. Provided with standard [facility] Discharge instructions for Kidney Stones 5. [...] provider's statements to me. Isac Alfred 07/04/2018 [facility] Essie Sanchez MD 07/07/181951 documented in this encounter Plan of Treatment Upcoming Encounters Date Type Specialty Care Team Description 08/16/2022 Ancillary Procedure Cardiology Timothy Smith MD [address] [place] [address] (Wo rk) 08/16/2022 Office Visit Cardiology Timothy Smith MD [address] [place] [id number] (Wo rk) documented as of this encounter [...] without acute div erticulitis. CHEYENNE FOOTE MD Essie Sanchez MD IMG CT ORDERABLES (ABNORMAL) INR (07/04/2018 10:50 PM CDT) athologist Signature INR 1.25 (H) 0.86 - 1.14 07/05/2018 [place] 12:43 AM [facility] Specimen Anatomical Collection Method Collection Time Receive d Time (Source) Location / / Volume Laterality 07/04/2018 10:50 07/04/2018 PM CDT 11:22 PM CDT Provider Unknown LAB - BLOOD ORDERABLES Performing Organization Address City/State/ZIP Code Phon e Number [facility] [address] [place] [address] [facility] [address] [phone] (ABNORMAL) UA with Microscopic reflex to Culture (07/04/2018 10:50 PM CDT) [facility] gist Method Time Signature Color Urine Yellow 07/04/2018 [place] 11:28 PM [facility] Appearance Urine Clear 07/04/2018 [place] 11:28 PM [facility] Glucose Urine 50 (A) NEG^Negat 07/04/2018 [place] mike mg/dL 11:28 PM [facility] Bilirubin Urine Negative NEG^Negat 07/04/2018 [place] mike 11:28 PM [facility] Ketones Urine Negative NEG^Negat 07/04/2018 [place] mike mg/dL 11:28 PM [facility] Specific [place] 1.017 1.003 - 07/04/2018 [place] Urine 1.035 11:28 PM [facility] Blood Urine Negative NEG^Negat 07/04/2018 [place] mike 11:28 PM [facility] pH Urine 5.0 5.0 - 7.0 07/04/2018 [place] pH 11:28 PM [facility] Protein Albumin Negative NEG^Negat 07/04/2018 [place] Urine mike mg/dL 11:28 PM [facility] Urobilinogen 0.0 0.0 - 2.0 07/04/2018 [place] mg/dL mg/dL 11:28 PM [facility] Nitrite Urine Negative NEG^Negat 07/04/2018 [place] mike 11:28 PM [facility] Leukocyte Negative NEG^Negat 07/04/2018 [place] Esterase Urine mike 11:28 PM [facility] Source Midstream 07/04/2018 [place] Urine 11:15 PM [facility] WBC Urine 1 0 - 5 07/04/2018 [facility] /HPF 11:28 PM [facility] RBC Urine 1 0 - 2 07/04/2018 [facility] /HPF 11:28 [facility] Squamous <1 0 - 1 07/04/2018 [place] Epithelial /HPF /HPF 11:28 PM [facility] Mucous Urine Present (A) NEG^Negat 07/04/2018 [place] mike /LPF 11:28 [facility] Specimen (Source) Anatomical Collection Method Collection Time Re ceived Time Location / / Volume Laterality Examination of 07/04/2018 10:50 8 midstream urine PM T 11:15 PM [facility] specimen (procedure) Sabino Mckeon MD LAB - URINE ORDERABLES Performing Organization Address City/State/ZIP Code Phon e Number [facility] [address] [place] [address] [place] [address] [address] [place] [address], [facility] [phone] Lipase (07/04/2018 10:50 PM CDT) P athologist Signature Lipase 124 73 - 393 07/04/2018 [facility] U/L 11:35 PM [facility] Specimen Anatomical Collection Method Collection Time Receive d Time (Source) Location / / Volume Laterality Blood specimen 07/04/2018 10:50 8 (specimen) PM CDT 11:14 PM CDT Sabino Mckeon MD LAB - BLOOD ORDERABLES Performing Organization Address City/State/ZIP Code Phon e Number [facility] [place] [address] [address] [place] [address] [address] [place], [place] [address] [facility] [phone] (ABNORMAL) Comprehensive metabolic panel (07/04/2018 10:50 PM CDT) Analysis Performed At Patho logist Time Signature Sodium 139 133 - 144 07/04/2018 [place] mmol/L 11:35 PM [facility] Potassium 4.2 3.4 - 5.3 07/04/2018 [place] mmol/L 11:35 PM [facility] Chloride 102 94 - 109 07/04/2018 [place] mmol/L 11:35 PM [facility] Carbon Dioxide 30 20 - 32 07/04/2018 [place] mmol/L 11:35 PM [facility] Anion Gap 7 3 - 14 07/04/2018 [place] mmol/L 11:35 PM [facility] Glucose 240 (H) 70 - 99 07/04/2018 [place] mg/dL 11:35 PM [facility] Urea Nitrogen 37 (H) 7 - 30 07/04/2018 [place] mg/dL 11:35 PM [facility] Creatinine 1.43 (H) 0.66 - 07/04/2018 [facility] 1.25 mg/dL 11:35 PM [facility] GFR Estimate 48 (L) >60 07/04/2018 [place] mL/min/1.7 11:[address] Comment: Non GFR Calc GFR Estimate If 58 (L) >60 mL/min/1.7m2 07/04/2018 11:35 PM [facility] Comment: GFR Calc Calcium 9.3 8.5 - 10.1 07/04/2018 11:35 PM [facility] mg/dL [facility] Bilirubin Total 0.4 0.2 - 1.3 mg/dL 07/04/2018 11:[address] [facility] Albumin 3.9 3.4 - 5.0 g/dL 07/04/2018 11:35 PM [facility] IEW [facility] Protein Total 7.8 6.8 - 8.8 g/dL 07/04/2018 11:35 PM [facility] Alkaline Phosphatase 32 (L) 40 - 150 U/L 07/04/2018 11:[address] [facility] ALT 22 0 - 70 U/L 07/04/2018 11:[address] [facility] AST 22 0 - 45 U/L 07/04/2018 11:[address] [facility] Specimen Anatomical Collection Method Collection Time Receive d Time (Source) Location / / Volume Laterality Blood specimen 07/04/2018 10:50 8 (specimen) PM CDT 11:14 PM CDT Sabino Mckeon MD LAB - BLOOD ORDERABLES Performing Organization Address City/State/ZIP Code Phon e Number [facility] [place] [address] [place] [address] [place] [address] [phone] (ABNORMAL) CBC + differential (07/04/2018 10:50 PM CDT) [facility] Method Time Signature WBC 7.8 4.0 - 07/05/2018 [facility] 11.0 12:03 AM [facility] 10e9/L [facility] RBC Count 4.35 (L) 4.4 - 5.9 07/05/2018 [facility] 10e12/L 12:03 AM [facility] Hemoglobin 13.9 13.3 - 07/05/2018 [facility] 17.7 g/dL 12:03 AM [facility] Hematocrit 43.3 40.0 - 07/05/2018 [facility] 53.0 % 12:03 AM [facility] MCV 100 78 - 100 07/05/2018 [facility] fl 12:03 AM [facility] MCH 32.0 26.5 - 07/05/2018 [facility] 33.0 pg 12:03 AM [facility] 32.1 31.5 - 07/05/2018 [facility] 36.5 g/dL 12:03 AM [facility] RDW 15.2 (H) 10.0 - 07/05/2018 [facility] 15.0 % 12:03 AM [facility] Platelet Count 242 150 - 450 07/05/2018 [facility] 10e9/L 12:03 AM [facility] Diff Method Automated 07/05/2018 [facility] Method 12:03 AM [facility] % Neutrophils 62.9 % 07/05/2018 [facility] 12:03 AM [facility] % Lymphocytes 19.5 % 07/05/2018 [facility] 12:03 AM [facility] % Monocytes 11.0 % 07/05/2018 [facility] 12:03 AM [facility] % Eosinophils 5.0 % 07/05/2018 [facility] 12:03 AM [facility] % Basophils 0.8 % 07/05/2018 [facility] 12:03 AM [facility] % Immature 0.8 % 07/05/2018 [facility] Granulocytes 12:03 AM [facility] Nucleated RBCs 0 0 /100 07/05/2018 [facility] 12:03 AM [facility] Absolute 4.9 1.6 - 8.3 07/05/2018 [facility] Neutrophil 10e9/L 12:03 AM [facility] Absolute 1.5 0.8 - 5.3 07/05/2018 [facility] Lymphocytes 10e9/L 12:03 AM [facility] Absolute 0.9 0.0 - 1.3 07/05/2018 [facility] Monocytes 10e9/L 12:03 AM [facility] Absolute 0.4 0.0 - 0.7 07/05/2018 [facility] Eosinophils 10e9/L 12:03 AM [facility] Absolute 0.1 0.0 - 0.2 07/05/2018 [facility] Basophils 10e9/L 12:03 AM [facility] Abs Immature 0.1 0 - 0.4 07/05/2018 [place] Granulocytes 10e9/L 12:03 AM [facility] Absolute 0.0 07/05/2018 [place] Nucleated RBC 12:03 AM [facility] Specimen Anatomical Collection Method Collection Time Receive d Time (Source) Location / / Volume Laterality Blood specimen 07/04/2018 10:50 8 (specimen) PM CDT 11:14 PM CDT Sabino Mckeon MD LAB - BLOOD ORDERABLES Performing Organization Address City/State/ZIP Code Phon e Number [place] [address] [address] [place], [place] [address] [phone] [place] [address] [phone] documented in this encounter Visit Diagnoses Diagnosis [...] analgesic side effects. Hold while on IV MATTRESS INSPECTOR or with regular IV opioid dosing. HYDROmorphone [...] analgesic side effects. Hold while on IV MATTRESS INSPECTOR or with regular IV opioid dosing. documented in this encounter Care Teams Pool Coordinator Relationship Specialty Start Date End Date Slava Hernandez PA-C PCP - General Physician Quality Assurance Tech 07/02/18 06/29/[address] [address] documented as of this encounter
--- OUTSIDE RECORDS SUMMARY | 2022-07-26 10:55 | XMS_ITS | Encounter Summary ---
:1940 Author Organization [place] Address [address] [facility] [place] [address] Care Team Providers Name Role Phone Kemar, Vinny Smoaks Primary Care Provider [phone] Reason for Visit (Routine) - Closed Specialty Diagnoses / Procedures Referred By Contact Refer red To Contact Cardiology Diagnoses Per Sarah Persistent atrial fibrillation Rh Echo [facility] Procedures ECH COMPLETE [address] [place] [address] [place], [place] [address] Phone: Fax: Referral ID Status Reason Start Date Expiration Date Visits Requ ested Visits Authorized [id number] Closed 06/26/2018 06/26/2019 1 1 Encounter Details Date Type Department Care Team Description 06/26/2018 Hospital Encounter [facility] Ankur Smith MD [facility] [address] [place] [address] AVWilfred fibrillat ion (H) [facility] [address] [address] [place] [address] [address] [place], [place] (Work) [address] Social History Tobacco Use [...] MD [address] [place] [id number] (Wo rk) 08/16/2022 Office Visit Cardiology Ankur Smith MD [address] [place] [address] (Wo rk) documented as of this encounter [...] AM CDT Narrative 06/26/2018 1:09 PM CDT [id number]^SARAH^ANKUR [facility] Echocardiography Laboratory [address] [place] [address] Name: RADHA VILLA : 1940 Study Date: 06/26/2018 10:37 AM Age: 77 yrs Gender: Male Patient Location: [facility] Reason For Study: Persistent atrial fibr illation [...] note might be different from the original. [id number]^SARAH^ANKUR [facility] Echocardiography Laboratory [address] [place] [address] Name: RADHA VILLA : 1940 Study Date: 06/26/2018 10:37 AM Age: 77 yrs Gender: Male Patient Location: [facility] Reason For Study: Persistent atrial fibr illation [...] dose documented in this encounter Care Teams Creative Art Therapist Relationship Specialty Start Date End Date Clinic, Vinny Jaimes PCP - General 01/16/18 07/01/18 [address] [place] [address] documented as of this encounter
--- OUTSIDE RECORDS SUMMARY | 2022-07-26 10:55 | XMS_ITS | Encounter Summary ---
:1940 Author Organization [place] Address [address] [facility] [address] [place] [address] Care Team Providers Name Role Phone Slava [...] PERICARDIOCENTESIS HC ECHO MYOCARD BX [place] [address] C INJECTION, PERFLUTREN LIPI D MICROSPHERES, PER ML HC STATISTIC IV PUSH SINGLE INITIAL SUBSTANCE [address] [place] [address] [place] [address] Phone: Fax: Referral ID Status Reason Start Date Expiration Date Visits Requ ested Visits Authorized [id number] Closed 11/15/2018 11/15/2019 1 1 MANUFACTURING SUPERVISOR Reason for Visit CV Testing (Routine) - [...] PERICARDIOCENTESIS HC ECHO MYOCARD BX [place] [address] [address] INJECTION, PERFLUTREN LIPI D MICROSPHERES, PER ML HC STATISTIC IV PUSH SINGLE INITIAL SUBSTANCE [address] [place] [address] [place] [address] Phone: Fax: Referral ID Status Reason Start Date Expiration Date Visits Requ ested Visits Authorized [id number] Closed 11/15/2018 11/15/2019 1 1 Encounter Details Date Type Department Care Team Description 11/18/2018 [facility] [place] Tammyame Jaeger smal atrial fibrillation (H); Encounter [facility] MARIBEL Torres Cardiomyopathy, unspecified type (H); [facility] [address] Ischemic cardiomyopathy [address] [place] [address] [place] [address] [place], [place] [phone] [address] (Work) [phone] Social History Tobacco Use Types Packs/Day Years [...] Coronary artery disease minutes as needed involving [place]ick coronary for chest pain artery of [place]ick heart without angina pectoris ondansetron (ZOFRAN ODT) [...] [address] [place] [address] (Wo rk) 08/16/2022 Office Visit Cardiology Timothy Smith MD [address] [place] [id number] (Wo rk) documented as of this encounter Procedures Procedure Name Priority Date/Time Associated Diagnosis Comme nts ECHO COMPLETE Routine 11/18/2018 11:17 AM Paroxysmal atrial Re sults for this CD MANUFACTURING SUPERVISOR fibrillation (H) procedure are in Cardiomyopathy, the results unspecified type (H) section. Ischemic cardiomyopathy documented in this encounter Results ECHO COMPLETE (11/18/2018 11:17 AM CD MANUFACTURING SUPERVISOR) Anatomical Region Laterality Modality Echocardiography Specimen (Source) Anatomical Collection Method Collection Time Re ceived Time Location / / Volume Laterality 11/18/2018 10:35 AM CD MANUFACTURING SUPERVISOR Narrative 11/19/2018 3:59 PM CD MANUFACTURING SUPERVISOR [id number]^BELEN^TAMMY^JOSEFABELINO [facility] Echocardiography Laboratory [address] [place] [address] Name: RADHA VILLA : 1940 Study Date: 11/18/2018 10:35 AM Age: 78 yrs Gender: Male Patient Location: [facility] Reason For Study: Paroxysmal atrial fibr [...] note might be different from the original. [id number]^BELEN^TAMMY^JUSTEN [facility] Echocardiography Laboratory [address] [facility] [place] [address] Name: RADHA VILLA : 1940 Study Date: 11/18/2018 10:35 AM Age: 78 yrs Gender: Male Patient Location: [facility] Reason For Study: Paroxysmal atrial fibr [...] disease documented in this encounter Care Teams Insulation Blanket Maker Relationship Specialty Start Date End Date Slava Hernandez PA-C PCP - General Physician Drum Stock Clerk 07/02/18 06/29/21 [facility] [address] [place] [address] documented as of this encounter
--- OUTSIDE RECORDS SUMMARY | 2022-07-26 10:55 | XMS_ITS | Encounter Summary ---
:1940 Author Organization [place] Address [facility] [place] [address] Care Team Providers Name Role Phone Slava [...] [address] [place] [address] (Wo rk) 08/16/2022 Office Visit Cardiology Timothy Smith MD [address] [place] [address] (Wo rk) documented as of this encounter Visit Diagnoses Not on filedocumented in this encounter Care Teams Monotype Machinist Relationship Specialty Start Date End Date Slava Hernandez PA-C PCP - General Physician Fresh Meat Grader 07/02/18 06/29/21 [facility] [address] [place] [address] documented as of this encounter
--- OUTSIDE RECORDS SUMMARY | 2022-07-26 10:55 | XMS_ITS | Encounter Summary ---
:1940 Author Organization [place] Address [address] [place] [address] Care Team Providers Name Role Phone Slava Hernandez PA-C Primary Care Provider Reason for Referral Diagnostic Imaging XR - Closed Specialty Diagnoses / Procedures Referred By Contact Refer red To Contact Radiology. Diagnoses Calculus of kidney Shea Rivera PA-C Rh Xray Procedures XR KUB [[id number]] [address] [place] [address] [place], [place] [phone] Fax: Referral ID Status Reason Start Date Expiration Date Visits Requ ested Visits Authorized [id number] Closed 10/23/2018 10/23/2019 1 1 ER MOULDING MACHINE OPERATOR Reason for Visit Reason Comments Other stone Encounter Details Date Type Department Care Team Description 10/23/2018 Office Visit [facility] Shea Rivera, Calcul us of kidney (Primary Dx); U[facility] Benign prostatic hyperplasia with weak u rinary stream [place] [address] [place] [address] [place], [place] [phone] (Work) [phone] Social History Tobacco Use Types Packs/Day Years Used Date Smoking Tobacco: Never Smokeless Tobacco: Never Alcohol Use Standard Drinks/Week Comments No 0 (1 standard drink = 0.6 oz pure alcoho l) Sex Assigned at Date Recorded Not on file documented as of this encounter Last Filed Vital Signs Vital Sign Reading Time Taken Comments Blood Pressure - - Pulse 82 10/23/2018 1:26 PM RUBBER MOULDING MACHINE OPERATOR Temperature - - Respiratory Rate - - Oxygen Saturation 92% 10/23/2018 1:26 PM RUBBER MOULDING MACHINE OPERATOR Inhaled Oxygen Concentration - - Weight 133.8 kg (295 lb) 10/23/2018 1:26 PM RUBBER MOULDING MACHINE OPERATOR Height 180.3 cm (5' 11) 10/23/2018 1:26 PM RUBBER MOULDING MACHINE OPERATOR Body Mass Index 41.14 10/23/2018 1:26 PM RUBBER MOULDING MACHINE OPERATOR documented in this encounter Patient Instructions Patient [...] laxatives. -Additional/different recommendations pending any stone analysis. ER MOULDING MACHINE OPERATOR documented in this encounter Progress Notes Shea [...] any questions or concerns. Shea Rivera PA-C [facility] 30 minutes were spent with the patient today, > 50% in counseling and coordination of care of kidney stone. ER MOULDING MACHINE OPERATOR Shea Rivera PA-C - 10/23/2018 1:30 PM CST 2011 [place] ER MOULDING MACHINE OPERATOR documented in this encounter Nursing Notes Delores Wilburn CMA - 10/23/2018 1:30 PM CST Pt here for stone Follow-up. Pt has had dark urine. Pt sometimes had flank pain. Pt passed 2 stones in Trae Duenas CMA ER MOULDING MACHINE OPERATOR documented in this encounter Plan of Treatment Upcoming Encounters Date Type Specialty Care Team Description 08/16/2022 Ancillary Procedure Cardiology Timothy Smith MD [address] [place] [phone] (Fiorella olvera) 08/16/2022 Office Visit Cardiology Timothy Smith MD [address] [place] [phone] (Fiorella olvera) documented as of this encounter Procedures Procedure Name Priority Date/Time Associated Comments Diagnosis URINE MACROSCOPIC Routine 10/23/2018 1:33 PM Calculus of kidne y Results for this ONLY RUBBER MOULDING MACHINE OPERATOR procedure are i n the results section. documented in this encounter Results XR KUB [[id number]] (10/23/2018 2:27 PM RUBBER MOULDING MACHINE OPERATOR) Anatomical Region Laterality Modality Abdomen/Pelvis Digital Radiography Specimen (Source) Anatomical Location Collection Method / Collectio n Time Received Time / Laterality Volume Impressions 10/23/2018 2:44 PM RUBBER MOULDING MACHINE OPERATOR IMPRESSION: No specific evidence of the previously seen distal ureteral stone. JEFFREY PA MD Narrative 10/23/2018 2:44 PM RUBBER MOULDING MACHINE OPERATOR XR KUB 10/23/2018 2:27 PM HISTORY: Left [...] IMAGING ORDER ANN (ABNORMAL) UA without Microscopic [[id number]] (10/23/2018 1:33 PM [facility] Method Time Signature Color Urine Yellow 10/23/2018 [facility] 1:36 PM [facility] Appearance Urine Clear 10/23/2018 [facility] 1:36 PM RUBBER MOULDING MACHINE OPERATOR [facility] Glucose Urine Negative NEG^Negat 10/23/2018 [facility] mike mg/dL 1:36 PM RUBBER MOULDING MACHINE OPERATOR [facility] Bilirubin Urine Negative NEG^Negat 10/23/2018 [facility] mike 1:36 PM [facility] Ketones Urine Trace (A) NEG^Negat 10/23/2018 [facility] mike mg/dL 1:36 PM [facility] Specific [place] >1.030 1.003 - 10/23/2018 [facility] Urine 1.035 1:36 PM [facility] Blood Urine Negative NEG^Negat 10/23/2018 [facility] mike 1:36 PM [facility] pH Urine 6.0 5.0 - 7.0 10/23/2018 [facility] pH 1:36 PM [facility] Protein Albumin 100 (A) NEG^Negat 10/23/2018 [facility] Urine mike mg/dL 1:36 PM RUBBER MOULDING MACHINE OPERATOR [facility] Urobilinogen 1.0 0.2 - 1.0 10/23/2018 [facility] Urine EU/dL 1:36 PM RUBBER MOULDING MACHINE OPERATOR [facility] Nitrite Urine Negative NEG^Negat 10/23/2018 [facility] mike 1:36 PM RUBBER MOULDING MACHINE OPERATOR [facility] Leukocyte Negative NEG^Negat 10/23/2018 [facility] Esterase Urine mike 1:36 PM RUBBER MOULDING MACHINE OPERATOR [facility] Source Midstream 10/23/2018 [facility] Urine 1:35 PM RUBBER MOULDING MACHINE OPERATOR [facility] Specimen (Source) Anatomical Collection Method Collection Time Re ceived Time Location / / Volume Laterality Examination of 10/23/2018 1:33 10/23/2018 1:34 midstream urine PM RUBBER MOULDING MACHINE OPERATOR PM RUBBER MOULDING MACHINE OPERATOR specimen (procedure) Shea Rivera PA-C LAB - URINE ORDERABLES Performing Organization Address City/State/ZIP Code Phon e Number [facility] [address] [place] [phone] [facility] [address] documented in this encounter Visit Diagnoses Diagnosis Calculus of kidney - Primary Benign prostatic hyperplasia with weak u rinary stream Calculus of kidney documented in this encounter Care Teams Plate Washer Relationship Specialty Start Date End Date Slava Hernandez PA-C PCP - General Physician Hand Icer 07/02/18 06/29/21 [facility] [address] [place] [address] documented as of this encounter
--- OUTSIDE RECORDS SUMMARY | 2022-07-26 10:55 | XMS_ITS | Encounter Summary ---
:1940 Author Organization [place] Address [facility] [place] [address] Care Team Providers Name Role Phone Slava [...] MD [address] [place] [address] (Wo rk) 08/16/2022 Office Visit Cardiology Timothy Smith MD [address] [place] [address] (Wo rk) documented as of this encounter Visit Diagnoses Not on filedocumented in this encounter Care Teams Roto Rooter Operator Relationship Specialty Start Date End Date Slava Hernandez PA-C PCP - General Physician Tray Room Worker 07/02/18 06/29/21 [facility] [address] [place] [address] documented as of this encounter
--- OUTSIDE RECORDS SUMMARY | 2022-07-26 10:55 | XMS_ITS | Encounter Summary ---
:1940 Author Organization [place] Address [facility] [place] [address] Care Team Providers Name Role Phone Slava [...] MD [address] [place] [address] (Wo rk) 08/16/2022 Office Visit Cardiology Timothy Smith MD [address] [place] [address] (Wo rk) documented as of this encounter Visit Diagnoses Not on filedocumented in this encounter Care Teams Mutton Puncher Relationship Specialty Start Date End Date Slava Hernandez PA-C PCP - General Physician Valve Repairer Reclamation 07/02/18 06/29/21 [facility] [address] [place] [address] documented as of this encounter
--- OUTSIDE RECORDS SUMMARY | 2022-07-26 10:55 | XMS_ITS | Encounter Summary ---
:1940 Author Organization [place] Address [facility] [place] [address] Care Team Providers Name Role Phone Slava [...] [address] [place] [address] (Wo rk) 08/16/2022 Office Visit Cardiology Timothy Smith MD [address] [place] [address] (Wo rk) documented as of this encounter Visit Diagnoses Not on filedocumented in this encounter Care Teams Liquor Maker Relationship Specialty Start Date End Date Slava Hernandez PA-C PCP - General Physician Spot Welder Body Assembly 07/02/18 06/29/21 [facility] [address] [place] [address] documented as of this encounter
--- OUTSIDE RECORDS SUMMARY | 2022-07-26 10:56 | XMS_ITS | Encounter Summary ---
:1940 Author Organization [place] Address [facility] [place] [address] Care Team Providers Name Role Phone [facility] Primary Care Provider [phone] Encounter Details Date Type Department Care Team Description 05/28/2018 [facility] Heart Aravind Sunshine, [facility] [place] [address] [facility] [address] [place] [phone] Social History Tobacco Use Types Packs/Day Years [...] [address] [place] [address] (Wo rk) 08/16/2022 Office Visit Cardiology Timothy Smith MD [address] [place] [phone] (Wo rk) documented as of this encounter Visit Diagnoses Not on filedocumented in this encounter Care Teams Strategic Partner Development Manager Relationship Specialty Start Date End Date [facility] PCP - General 01/16/18 07/01/18 [address] [place] [phone] documented as of this encounter
--- OUTSIDE RECORDS SUMMARY | 2022-07-26 10:56 | XMS_ITS | Encounter Summary ---
:1940 Author Organization [place] Address [address] [facility] [place] [address] Care Team Providers Name Role Phone Clinic, [facility] Primary Care Provider [phone] Reason for Visit Reason Comments Pacemaker Check annual - Closed Specialty Diagnoses / Procedures Referred By Contact Refer red To Contact Diagnoses Paroxysmal atrial fibrillation (H) [facility] [phone] [place] [phone] Referral ID Status Reason Start Date Expiration Date Visits Requ ested Visits Authorized [id number] Closed 05/20/2018 05/20/2019 1 1 Encounter Details Date Type Department Care Team Description 05/21/2018 [facility] Timothy Smith MD Pacemaker Check Health/Nurse [facility] [place] [address] [facility] (annual) Visit [address] [address] [place] [address] [place] [phone] Social History Tobacco Use Types Packs/Day Years Used Date Smoking Tobacco: Never Smokeless Tobacco: Never Alcohol Use Standard Drinks/Week Comments No 0 (1 standard drink = 0.6 oz pure alcoho l) Sex Assigned at Date Recorded Not on file documented as of this encounter Progress Notes Sarina Carty RN - 05/21/2018 2:30 PM CDT [employer] (D) Pacemaker Device Check AP: 0 % COIL WINDER HAND: 34 % Mode: DDDR 60-130 Underlying Rhythm: [...] [address] [place] [address] (Wo rk) 08/16/2022 Office Visit Cardiology Timothy Smith MD [address] [place] [address] (Wo rk) documented as of this encounter Procedures Procedure Name Priority Date/Time Associated Diagnosis Comme [facility] PM DEVICE PROGRAMMING Routine 05/21/2018 Cardiac pacemaker in situ EVAL, SINGLE LEAD/LEADLESS SSS (sick sinu s syndrome) PACER (H) documented in this encounter Results PM DEVICE PROGRAMMING EVAL, SINGLE LEAD PACER (55009) (05/21/2018) Narrative This result has an attachment that is no t available. Timothy Smith MD PROCEDURES documented in this encounter Visit Diagnoses Diagnosis Cardiac pacemaker in situ - Primary SSS (sick sinus syndrome) (H) Sinoatrial node dysfunction documented in this encounter Care Teams Guide Alpine Relationship Specialty Start Date End Date [facility], [facility] PCP - General 01/16/18 07/01/18 [address] [place] [phone] documented as of this encounter
--- OUTSIDE RECORDS SUMMARY | 2022-07-26 10:56 | XMS_ITS | Encounter Summary ---
:1940 Author Organization [place] Address [facility] [place] [address] Care Team Providers Name Role Phone Clinic, [facility] Primary Care Provider [phone] Encounter Details Date Type Department Care Team Description 05/07/2018 Anesthesia Event [facility] Ryann Chino MD [facility] [address] [place] [address] [facility] Ginger Santana, FLACO [place]YWOOD LAYUP LINE CORE FEEDER [address] [id number] [address] [place] [phone] Anesthesia Record Procedure Summary Procedure Name Responsible Anesthesia Start Anesthesia Stop Anesthesiologist Time Time ECHO CARDIOVERSION - Derek Chino, 05/07/18 0951 0958 ECHO DEPARTMENT Events Date Time Event Comment 05/07/2018 0951 An Start 0951 An Start Data 0951 Quick Note Diagnosis:atriaL fibrillation Procedure: Cardioversion Academic Interventionist:Dr Smith Location:[facility] PACU room 12 0952 An Induction 0958 [...] 0 105 by Airway Easy; Ginger Mclaughlin NUCLEAR RADIOLOGIST Inpatient, Nurse [facility]YWOOD LAYUP LINE CORE FEEDER documented in this encounter Social History Tobacco [...] Reported, Patient Current Facility-Administered Medications Ordered in [facility] Medication Dose Route Frequency Last Rate Last Dose ??? propofol (DIPRIVAN) injection 10 mg/mL vial PRN 70 mg at 05/07/18 0952 No current [facility]-ordered outpatient prescriptions on file. Wt Readings [...] for input(s): ABO, RH in the last 50465 hours. Recent Labs Lab Test 02/04/16 1203 02/27/13 1145 INR 1.00 2.66* Recent Labs Lab Test 02/03/16 0450 02/03/16 0140 02/02/16 2140 TROPI 0.395* 0.441* 0.407* No results for input(s): PH, PCO2, PO2, HCO3 in the last 30504 hours. No results for input(s): HCG in the last 91403 hours. Recent Results (from the past 744 [...] [address] [place] [address] (Wo rk) 08/16/2022 Office Visit Cardiology Timothy Smith MD [address] [place] [address] (Wo rk) documented as of this encounter Visit Diagnoses Not on filedocumented in this encounter Administered Medications Inactive Administered Medications - up to 3 most recent administrations Medication Order MAR Action Action Date Dose Rate Site propofol (DIPRIVAN) injection 10 Given 05/07/2018 9:52 AM CDT 70 mg mg/mL vial PRN, Starting on Sun05/07/18 at 0952, Anesthesia Intra-op documented in this encounter Care Teams Pear Picker Relationship Specialty Start Date End Date [facility], Vinny Jaimes PCP - General 01/16/18 07/01/18 [address] [place] [address] documented as of this encounter
--- OUTSIDE RECORDS SUMMARY | 2022-07-26 10:56 | XMS_ITS | Encounter Summary ---
:1940 Author Organization [place] Address [facility] [place] [address] Care Team Providers Name Role Phone Clinic, [facility] Primary Care Provider [phone] Reason for Referral - Closed Specialty Diagnoses / Procedures Referred By Contact Refer red To Contact Diagnoses Paroxysmal atrial fibrillation (H) [facility] [address] [facility] [address] [place] [address] Referral ID Status Reason Start Date Expiration Date Visits Requ ested Visits Authorized [id number] Closed 05/20/2018 05/20/2019 1 1 Reason for Visit Reason Comments Clinic Care Coordination - Follow-up Encounter Details Date Type Department Care Team Description 05/07/2018 Care Coordination [facility] Brisa Sunshine [facility] [place] Vital RN Coordination - [address] [facility] Follow-up [facility] [address] [place] [phone] Social History Tobacco Use Types Packs/Day [...] [address] [place] [address] (Wo rk) 08/16/2022 Office Visit Cardiology Timothy Smith MD [address] [place] [address] (Wo rk) Scheduled Referrals Name Type Priority Associated Diagnoses Order S chedule Follow-Up with Referral Routine Paroxysmal atrial Expected : 05/20/2018 Device Clinic fibrillation (H) (Approxima te), Expires: 2018 documented as of this encounter Visit Diagnoses Diagnosis Paroxysmal atrial fibrillation (H) - Ria jing Atrial fibrillation documented in this encounter Care Teams Boom Supervisor Relationship Specialty Start Date End Date Clinic, Vinny Jaimes PCP - General 01/16/18 07/01/18 [address] [place] [address] documented as of this encounter
--- OUTSIDE RECORDS SUMMARY | 2022-07-26 10:56 | XMS_ITS | Encounter Summary ---
:1940 Author Organization [place] Address [facility] [place] [address] Care Team Providers Name Role Phone Vinny Reinoso Primary Care Provider [phone] Encounter Details Date Type Department Care Team Description 06/11/2018 Documentation Only [facility] [place], [place] [phone] [facility] [address] [place] [phone] Social History Tobacco Use Types Packs/Day Years [...] Smith and also has seen Elda Oliver MILLING PLANER OPERATOR---had resent decrease in his lasix dose-Elda wanted pt to get a BMP 1 week after the medication decrease- [place] [facility], and would like to have that done @ his PMD office- Vinny Jaimes-I faxed the order to [phone], and have asked them to fax results to my attention-yvette cummins 07-01-2018--I called Vinny @ [facility] to see if pt went in for labs(BMP) await the fax result or call from clinic RN-yvette cummins documented in this encounter Plan of Treatment Upcoming Encounters Date Type Specialty Care Team Description 08/16/2022 Ancillary Procedure Cardiology Timothy Smith MD [address] [place] [address] (Wo rk) 08/16/2022 Office Visit Cardiology Timothy Smith MD [address] [place] [address] (Wo rk) documented as of this encounter Visit Diagnoses Not on filedocumented in this encounter Care Teams Sales Assistant Relationship Specialty Start Date End Date [facility], Vinny Jaimes PCP - General 01/16/18 07/01/18 [address] [place] [phone] documented as of this encounter
--- OUTSIDE RECORDS SUMMARY | 2022-07-26 10:56 | XMS_ITS | Encounter Summary ---
:1940 Author Organization [place] Address [facility] [place] [address] Care Team Providers Name Role Phone [facility] [place] Primary Care Provider [phone] Encounter Details Date Type Department Care Team Description 04/30/2018 Orders Only [facility], Lidya Crenshaw Per sistent atrial Respiratory Therapy fibrillation (H) (Primary [address] Dx) [place] [address] Social History Tobacco Use Types Packs/Day [...] [address] [place] [address] (Wo rk) 08/16/2022 Office Visit Cardiology Timothy Smith MD [address] [place] [phone] (Wo rk) Scheduled Orders Name Type Priority [...] [facility] PFT FEV1-%Pred-Pre 74 % [facility] [id number] 72 % [facility]FT [id number] 81 % [facility] PFT FEFMax-Pred 6.90 L/sec [facility] PFT FEFMax-Pre 6.78 L/sec [facility] PFT FEFMax-%Pred-Pr 98 % [facility] PFT e [id number] 1.96 L/sec [facility] PFT [id number] 2.06 L/sec [facility] PFT [id number]-%Pred-P 105 % [facility] PFT re ExpTime-Pre 6.47 sec [facility] PFT FIFMax-Pre 5.17 L/sec [facility] PFT VC-Pred 4.23 L [facility] PFT VC-Pre 2.56 L [facility] PFT VC-%Pred-Pre 60 % [facility] PFT IC-Pred 4.20 L [facility] PFT IC-Pre 2.31 L [facility] PFT IC-%Pred-Pre 55 % [facility] PFT ERV-Pred 0.03 L [facility] PFT ERV-Pre 0.25 L [facility] PFT ERV-%Pred-Pre 830 % [facility] PFT [id number] 76 % [facility] PFT [id number]-Gjm 81 % [facility] PFT FRCPleth-Pred 3.68 L [...] [facility] PFT VA-%Pred-Pre 69 % [facility] PFT [id number]-Izmg 65 % [facility] PFT [id number]-Fqd 79 % [facility] PFT Specimen (Source) Anatomical Collection Method Collection Time Re ceived Time Location / / Volume Laterality 05/02/2018 3:23 PM CDT Timothy Smith MD PFT ORDERABLES Performing Organization Address City/State/ZIP Code Phon e Number [facility] documented in this encounter Visit Diagnoses Diagnosis Persistent atrial fibrillation (H) - Ria jing Atrial fibrillation documented in this encounter Care Teams Floorman Relationship Specialty Start Date End Date [facility] - [facility] 01/16/18 07/01/18 [address] [place] [address] documented as of this encounter
--- OUTSIDE RECORDS SUMMARY | 2022-07-26 10:56 | XMS_ITS | Encounter Summary ---
:1940 Author Organization [place] Address [address] [facility] [place] [address] Care Team Providers Name Role Phone Clinic, [facility] Primary Care Provider [phone] Reason for Referral Diagnostic Imaging XR - Closed Specialty Diagnoses / Procedures Referred By Contact Refer red To Contact Radiology. Diagnoses Persistent atrial fibrillation (H) Timothy Smith MD Rh Xray Procedures XR Chest [address] [address] Phone: Fax: Referral ID Status Reason Start Date Expiration Date Visits Requ ested Visits Authorized [id number] Closed 05/02/2018 05/07/2019 1 1 Reason for Visit Diagnostic Imaging XR - Closed Specialty Diagnoses / Procedures Referred By Contact Refer red To Contact Radiology. Diagnoses Persistent atrial fibrillation (H) Timothy Smith MD Rh Xray Procedures XR Chest [address] [place] [address] [address] Phone: Fax: Referral ID Status Reason Start Date Expiration Date Visits Requ ested Visits Authorized [id number] Closed 05/02/2018 05/07/2019 1 1 Encounter Details Date Type Department Care Team Description 05/02/2018 Hospital Encounter [facility] Timothy Smith MD Persistent atrial [facility] [address] fibrillation (H) [address] [facility] [place] [phone] Social History Tobacco Use Types Packs/Day [...] [address] [place] [phone] (Fiorella rk) 08/16/2022 Office Visit Cardiology Timothy Smith MD [address] [place] [phone] (Fiorella olvera) documented as of this encounter [...] fibrillation documented in this encounter Care Teams Parachute Rigger Relationship Specialty Start Date End Date [facility], [facility] PCP - General 01/16/18 07/01/18 [address] [place] [address] documented as of this encounter
--- OUTSIDE RECORDS SUMMARY | 2022-07-26 10:56 | XMS_ITS | Encounter Summary ---
:1940 Author Organization [place] Address [facility] [address] Care Team Providers Name Role Phone ClinicVinny Harrison Primary Care Provider [phone] Encounter Details Date Type Department Care Team Description 05/03/2018 Orders Only [facility] Heart Isch emic cardiomyopathy; [facility] Persistent atrial fibrillati on (H) [address] [place] [address] Social History Tobacco Use Types Packs/Day [...] [address] [place] [phone] (Wo rk) 08/16/2022 Office Visit Cardiology Timothy Smith MD [address] [place] [phone] (Wo rk) documented as of this encounter [...] Signature TSH 3.79 0.40 - 4.00 05/03/2018 [facility] mU/L 10:39 AM [facility] Specimen Anatomical Collection Method Collection Time Receive d Time (Source) Location / / Volume Laterality Blood specimen 05/03/2018 9:58 AM 018 9:59 (specimen) CDT AM CDT Timothy Smith MD LAB - BLOOD ORDERABLES Performing Organization Address City/State/ZIP Code Phon e Number [place] [address] [place] [address] [facility] [address] [phone] (ABNORMAL) Hepatic panel (05/03/2018 9:58 AM CDT) Analysis Performed At Patho logist Time Signature Bilirubin Direct 0.4 (H) 0.0 - 0.2 05/03/2018 [place] mg/dL 10:33 AM [facility] Bilirubin Total 1.0 0.2 - 1.3 05/03/2018 [place] mg/dL 10:33 AM [facility] Albumin 3.7 3.4 - 5.0 05/03/2018 [place] g/dL 10:33 AM [facility] Protein Total 7.9 6.8 - 8.8 05/03/2018 [place] g/dL 10:33 AM [facility] Alkaline 29 (L) 40 - 150 05/03/2018 [place] Phosphatase U/L 10:33 AM [facility] ALT 31 0 - 70 U/L 05/03/2018 [place] 10:33 AM [facility] AST 25 0 - 45 U/L 05/03/2018 [place] 10:33 AM [facility] Specimen Anatomical Collection Method Collection Time Receive d Time (Source) Location / / Volume Laterality Blood specimen 05/03/2018 9:58 AM 018 9:59 (specimen) CDT AM CDT Timothy Smith MD LAB - BLOOD ORDERABLES Performing Organization Address City/State/ZIP Code Phon e Number M [facility] [address] [place], [place] [address] [facility] [address] [place], [place] [address] [facility] [phone] (ABNORMAL) Basic metabolic panel (05/03/2018 9:58 AM CDT) athologist Signature Sodium 138 133 - 144 05/03/2018 [place] mmol/L 10:33 AM [facility] Potassium 4.5 3.4 - 5.3 05/03/2018 [place] mmol/L 10:33 AM [facility] Chloride 100 94 - 109 05/03/2018 [place] mmol/L 10:33 AM [facility] Carbon Dioxide 31 20 - 32 05/03/2018 [place] mmol/L 10:33 AM [facility] Anion Gap 7 3 - 14 05/03/2018 [place] mmol/L 10:33 AM [facility] Glucose 150 (H) 70 - 99 05/03/2018 [place] mg/dL 10:33 AM [facility] Urea Nitrogen 34 (H) 7 - 30 05/03/2018 [place] mg/dL 10:33 AM [facility] Creatinine 1.25 0.66 - 05/03/2018 [place] 1.25 mg/dL 10:33 AM [facility] GFR Estimate 56 (L) >60 05/03/2018 [place] mL/min/1.7 10:[address] Comment: Non GFR Calc GFR Estimate If 67 >60 mL/min/1.7m2 05/03/2018 10:33 AM [facility] Comment: GFR Calc Calcium 9.2 8.5 - 10.1 mg/dL 05/03/2018 10:33 AM [facility] Specimen Anatomical Collection Method Collection Time Receive d Time (Source) Location / / Volume Laterality Blood specimen 05/03/2018 9:58 AM 018 9:59 (specimen) CDT AM CDT Timothy Smith MD LAB - BLOOD ORDERABLES Performing Organization Address City/State/ZIP Code Phon e Number M [facility] [address] [place], [place] [address] [facility] [address] [place], [place] [address] 7[facility] [phone] documented in this encounter Visit Diagnoses Diagnosis Ischemic cardiomyopathy Other specified forms of chronic ischemi c heart disease Persistent atrial fibrillation (H) Atrial fibrillation documented in this encounter Care Teams Intake Worker Relationship Specialty Start Date End Date [facility] PCP - General 01/16/18 07/01/18 [address] [place] [address] documented as of this encounter
--- OUTSIDE RECORDS SUMMARY | 2022-07-26 10:56 | XMS_ITS | Encounter Summary ---
:1940 Author Organization [place] Address Count includes the [facility] [place] [address] Care Team Providers Name Role Phone Clinic, [facility] Primary Care Provider Reason for Visit Reason Onset Date Comments Refill Request 05/07/2018 needs a bridge to md [place]-order script-sent to [facility] Encounter Details Date Type Department Care Team Description 05/07/2018 Refill [facility] Heart Zarina Smith MD Refill Request (needs a Clinic [place] [address] bridge to mail-order [address] [facility] [address] script-sent to [facility]) [address] [place] [address] [place] [phone] Social History Tobacco Use Types Packs/Day Years [...] [address] [place] [phone] (Wo rk) 08/16/2022 Office Visit Cardiology Timothy Smith MD [address] [place] [phone] (Wo rk) documented as of this encounter Visit Diagnoses Diagnosis Persistent atrial fibrillation (H) Atrial fibrillation documented in this encounter Care Teams Repeater Chief Relationship Specialty Start Date End Date [facility] PCP - General 01/16/18 07/01/18 [address] [place] [phone] documented as of this encounter
--- OUTSIDE RECORDS SUMMARY | 2022-07-26 10:56 | XMS_ITS | Encounter Summary ---
:1940 Author Organization [place] Address [facility] [place] [address] Care Team Providers Name Role Phone [facility] Primary Care Provider [phone] Encounter Details Date Type Department Care Team Description 05/21/2018 Orders Only [facility] Heart CAD (coronary artery [facility] [place] [facility] disease) [address] [employer] [address] [place] [phone] Social History Tobacco Use Types Packs/Day Years Used Date Smoking Tobacco: Never Smokeless Tobacco: Never Alcohol Use Standard Drinks/Week Comments No 0 (1 standard drink = 0.6 oz pure alcoho l) Sex Assigned at Date Recorded Not on file documented as of this encounter Plan of Treatment Upcoming Encounters Date Type Specialty Care Team Description 08/16/2022 Ancillary Procedure Cardiology Timothy Smith MD [address] [facility] [address] [address] [place] [phone] (Wo rk) 08/16/2022 Office Visit Cardiology Timothy Smith MD [address] [place] [phone] (Wo rk) documented as of this encounter Procedures Procedure Name Priority Date/Time Associated Diagnosis Comme nts BASIC METABOLIC Routine 05/21/2018 2:05 PM CAD (coronary arter y Results for this PANEL CDT disease) procedure are i n the results section. documented in this encounter Results (ABNORMAL) Basic metabolic panel (05/21/2018 2:05 PM CDT) Analysis [facility] At [facility] Time Signature Sodium 141 136 - 145 05/21/2018 [facility] mmol/L 3:31 PM CDT [facility] A Potassium 4.7 3.5 - 5.1 05/21/2018 [facility] mmol/L 3:31 PM CDT [facility] A Chloride 101 98 - 107 05/21/2018 [facility] mmol/L 3:31 PM CDT [facility] A Carbon Dioxide 31 (H) 23 - 29 05/21/2018 [facility] mmol/L 3:31 PM CDT [facility] A Anion Gap 13.7 6 - 17 05/21/2018 [facility] mmol/L 3:31 PM T [facility] A Glucose 154 (H) 70 - 105 05/21/2018 [facility] mg/dL 3:31 PM T [facility] A Urea Nitrogen 44 (H) 7 - 30 05/21/2018 [facility] mg/dL 3:31 PM T [facility] A Creatinine 2.03 (H) 0.70 - 05/21/2018 [facility] 1.30 mg/dL 3:31 PM CDT [facility] A GFR Estimate 32 (L) >60 05/21/2018 [facility] mL/min/1.7 3:31 PM CDT [facility] m2 A GFR Estimate If 39 (L) >60 05/21/2018 [facility] Black mL/min/1.7 3:31 PM T [facility] m2 A Calcium 10.3 8.5 - 10.5 05/21/2018 [facility] mg/dL 3:31 PM T [facility] A Specimen Anatomical Collection Method Collection Time Receive d Time (Source) Location / / Volume Laterality Blood specimen 05/21/2018 2:05 PM 018 2:07 (specimen) CDT PM CDT Elda Johnson APRN PRODUCTION WORKER LAB - BLOOD ORDERABL ES Performing Organization Address City/State/ZIP Code Phon e Number [facility] [address] [address] [address] documented in this encounter Visit Diagnoses Diagnosis CAD (coronary artery disease) Coronary atherosclerosis of unspecified type of vessel, bois forte or graft documented in this encounter Care Teams Quantitative Manager Relationship Specialty Start Date End Date Clinic, Vinny Jaimes PCP - General 01/16/18 07/01/18 [address] [place] [address] documented as of this encounter
--- OUTSIDE RECORDS SUMMARY | 2022-07-26 10:56 | XMS_ITS | Encounter Summary ---
:1940 Author Organization [place] Address [address] [place] [address] Care Team Providers Name Role Phone Clinic, [facility] Primary Care Provider [phone] Reason for Referral CV Testing - Closed Specialty Diagnoses / Procedures Referred By Contact Refer red To Contact Diagnoses Persistent atrial fibrillation (H) Ankur Smith MD Procedures Cardioversion [address] [place] [phone] Referral ID Status Reason Start Date Expiration Date Visits Requ ested Visits Authorized [id number] Closed 05/07/2018 05/07/2019 1 1 Reason for Visit CV Testing - Closed Specialty Diagnoses / Procedures Referred By Contact Refer red To Contact Diagnoses Persistent atrial fibrillation (H) Ankur Smith MD Procedures Cardioversion [address] [place] [id number] Referral ID Status Reason Start Date Expiration Date Visits Requ ested Visits Authorized [id number] Closed 05/07/2018 05/07/2019 1 1 Encounter Details Date Type Department Care Team Description 05/07/2018 Hospital Encounter [facility] Ankur Smith MD Persistent atrial [place] PACU [address] fibrillation (H) [address] [place] [address] [phone] Social History Tobacco Use Types Packs/Day Years [...] followup next week at the clinic with MEDICAL FILE CLERK. He will set up appt. documented in [...] performed under deep sedation assisted by the head animal keeper. The patches were placed in anterior and posterior fashion. A single shock of 200 joules successf ully converted to sinus rhythm. He had short runs of atrial fibrillation and atrial flutter post-cardioversion. There was no complication. ANKUR SMITH MD MT: CC Name: RADHA VILLA MRN: [id number] Account: [id number] : 1940 Procedure Date: 05/07/2018 Document: [id number] documented in this encounter Plan of Treatment Upcoming Encounters Date Type Specialty Care Team Description 08/16/2022 Ancillary Procedure Cardiology Ankur Smith MD [address] [place] [phone] (Wo wade) 08/16/2022 Office Visit Cardiology Ankur Smith MD [address] [place] [phone] (Wo wade) Scheduled Orders Name Type Priority [...] Glucose 162 (H) 70 - 99 05/07/2018 [place] mg/dL 9:32 AM CDT [facility] Specimen Anatomical Collection Method Collection Time Receive d Time (Source) Location / / Volume Laterality Blood specimen 05/07/2018 8:58 AM 018 9:13 (specimen) CDT AM CDT Serge De Leon MD LAB - BLOOD ORDERABLES Performing Organization Address City/State/ZIP Code Phon e Number M [facility] [address] [place] [address] [phone] [facility] [address] [place] [address], [place] [phone] Potassium level (05/07/2018 8:58 AM CDT) P athologist Signature Potassium 3.7 3.4 - 5.3 05/07/2018 [place] mmol/L 9:32 AM CDT [facility] Specimen Anatomical Collection Method Collection Time Receive d Time (Source) Location / / Volume Laterality Blood specimen 05/07/2018 8:58 AM 018 9:13 (specimen) CDT AM CDT Ankur Smith MD LAB - BLOOD ORDERABLES Performing Organization Address City/State/ZIP Code Phon e Number M [facility] [address] [place] [address] [phone] [facility] [address] [place] [address], [place] [phone] Magnesium level (05/07/2018 8:58 AM CDT) P athologist Signature Magnesium 1.7 1.6 - 2.3 05/07/2018 [place] mg/dL 9:32 AM CDT [facility] Specimen Anatomical Collection Method Collection Time Receive d Time (Source) Location / / Volume Laterality Blood specimen 05/07/2018 8:58 AM 018 9:13 (specimen) CDT AM CDT Ankur Smith MD LAB - BLOOD ORDERABLES Performing Organization Address City/State/ZIP Code Phon e Number M [facility] [address] [place] [address] [phone] [facility] [address] [place] [place] [address], U [phone] documented in this encounter Visit Diagnoses Diagnosis [...] Pre-procedure documented in this encounter Care Teams Applications Developer Relationship Specialty Start Date End Date Clinic, Vinny Jaimes PCP - General 01/16/18 07/01/18 [address] [place] [address] documented as of this encounter
--- OUTSIDE RECORDS SUMMARY | 2022-07-26 10:56 | XMS_ITS | Encounter Summary ---
:1940 Author Organization [place] Address [address] [facility] [place] [address] Care Team Providers Name Role Phone Clinic, [facility] Primary Care Provider [phone] Reason for Visit Reason Comments Pacemaker Check Rep check Pre AF ablation (c ancelled) Encounter Details Date Type Department Care Team Description 05/31/2018 Documentation Only [facility] Fabiola Hurtado Check (Rep Heart [facility] [place] Bui, RN, RN check Pre AF [address] [facility] HEART ablati on... [address] [place] [address] [phone] [address] [place] [place] [id number] Social History Tobacco Use Types Packs/Day Years Used Date Smoking Tobacco: Never Smokeless Tobacco: Never Alcohol Use Standard Drinks/Week Comments No 0 (1 standard drink = 0.6 oz pure alcoho l) Sex Assigned at Date Recorded Not on file documented as of this encounter Progress Notes Fabiola Hurtado, RN, RN - 06/07/2018 3:48 PM CDT [employer] (D) PPM REP INTERROGATION Rep [...] [address] [place] [phone] (Wo rk) 08/16/2022 Office Visit Cardiology Timothy Smith MD [address] [place] [phone] (Wo rk) documented as of this encounter Visit Diagnoses Not on filedocumented in this encounter Care Teams Treasury Manager Relationship Specialty Start Date End Date [facility], [facility] PCP - General 01/16/18 07/01/18 [address] [place] [address] documented as of this encounter
--- OUTSIDE RECORDS SUMMARY | 2022-07-26 10:56 | XMS_ITS | Encounter Summary ---
:1940 Author Organization [place] Address [facility] [place] [address] Care Team Providers Name Role Phone Clinic, [facility] Primary Care Provider Reason for Visit Reason Onset Date Comments Results 05/08/2018 baseline Amio testin g/ BPM- order plaed for repeat BMP when in to see Elda due to r ising BUN Encounter Details Date Type Department Care Team Description 05/08/2018 Telephone [facility] Elda Johnson Results (baseline [facility] [place] APRN COUPON CLERK testing/ BPM- order [address] [facility] [address] [facility] plaed for repeat BMP [facility] [address] [place] [address] [place] [address] due to rising BUN) [phone] Social History Tobacco Use Types Packs/Day Years [...] Procedure Cardiology Timothy Smith MD [address] [place] [phone] (Wo rk) 08/16/2022 Office Visit Cardiology Timothy Smith MD [address] [place] [phone] (Wo rk) documented as of this encounter Results (ABNORMAL) Basic metabolic panel (05/21/2018 2:05 PM CDT) Analysis Performed At Patho logist Time Signature Sodium 141 136 - 145 05/21/2018 [facility] mmol/L 3:31 PM CDT [facility] Potassium 4.7 3.5 - 5.1 05/21/2018 [facility] mmol/L 3:31 PM CDT [facility] Chloride 101 98 - 107 05/21/2018 [facility] mmol/L 3:31 PM CDT [facility] A Carbon Dioxide 31 (H) 23 - 29 05/21/2018 [facility] mmol/L 3:31 PM CDT [facility] A Anion Gap 13.7 6 - 17 05/21/2018 [facility] mmol/L 3:31 PM CDT [facility] Glucose 154 (H) 70 - 105 05/21/2018 [facility] mg/dL 3:31 PM CDT [facility] Urea Nitrogen 44 (H) 7 - 30 05/21/2018 [facility] mg/dL 3:31 PM CDT [facility] A Creatinine 2.03 (H) 0.70 - 05/21/2018 [facility] 1.30 mg/dL 3:31 PM CDT [facility] A GFR Estimate 32 (L) >60 05/21/2018 [facility] mL/min/1.7 3:31 PM CDT [facility] m2 A GFR Estimate If 39 (L) >60 05/21/2018 [facility] [place] mL/min/1.7 3:31 PM CDT [facility] m2 A Calcium 10.3 8.5 - 10.5 05/21/2018 [facility] mg/dL 3:31 PM CDT [facility] A Specimen Anatomical Collection Method Collection Time Receive d Time (Source) Location / / Volume Laterality Blood specimen 05/21/2018 2:05 PM 018 2:07 (specimen) CDT PM CDT Elda Johnson IT APPLICATIONS ANALYST COUPON CLERK LAB - BLOOD ORDERABL ES Performing Organization Address City/State/ZIP Code Phon e Number [facility] [address] [address] [address] documented in this encounter Visit Diagnoses Diagnosis CAD (coronary artery disease) - Primary Coronary atherosclerosis of unspecified type of vessel, eyak or graft documented in this encounter Care Teams Head Setter Relationship Specialty Start Date [facility] - [facility] 01/16/18 07/01/18 [address] [address] [place] [address] documented as of this encounter
--- OUTSIDE RECORDS SUMMARY | 2022-07-26 10:56 | XMS_ITS | Encounter Summary ---
:1940 Author Organization [place] Address [facility], [facility] [place] [address] Care Team Providers Name Role Phone Clinic, [facility] Primary Care Provider [phone] Encounter Details Date Type Department Care Team Description 05/07/2018 Hospital Encounter [facility] Timothy Smith MD [facility] PACU [address] [place] [address] [place] [address] [phone] (Wo rk) Social History Tobacco Use Types [...] MD [address] [place] [phone] (Fiorella olvera) 08/16/2022 Office Visit Cardiology Timothy Smith MD [address] [place] [phone] (Fiorella olvera) documented as of this encounter Visit Diagnoses Not on filedocumented in this encounter Care Teams Merchandise Execution Leader Relationship Specialty Start Date End Date [place], Vinny Jaimes PCP - General 01/16/18 07/01/18 [address] [place] [address] documented as of this encounter
--- OUTSIDE RECORDS SUMMARY | 2022-07-26 10:56 | XMS_ITS | Encounter Summary ---
:1940 Author Organization [place] Address [facility] [address] Care Team Providers Name Role Phone Clinic, [facility] Primary Care Provider [phone] Reason for Visit CV Testing - Closed Specialty Diagnoses / Procedures Referred By Contact Refer red To Contact Cardiology Diagnoses Paroxysmal atrial fibrillation (H) Ischemic cardiomyopathy Mago Sotomayor, FLACO DIRECTOR OF RETAIL OPERATIONS Zz Cv Echocard Procedures ECHO COMPLETE WITH OPTISON Echocardiogram [address] [facility] [place] [address] [facility] [address] [place] [phone] Phone: Referral ID Status Reason Start Date Expiration Date Visits Requ ested Visits Authorized [id number] Closed 04/23/2018 04/23/2019 1 1 Encounter Details Date Type Department Care Team Description 04/30/2018 Hospital Encounter [place] Mago Mina, P aroxysmal atrial fibrillation (H); CV Echocardiography NURSING PROGRAM DIRECTOREvaristo ROLLE Ischemic cardiomyopathy [address] [facility] [address] [...] [address] [place] [phone] (Wo rk) 08/16/2022 Office Visit Cardiology Timothy Smith MD [address] [place] [phone] (Wo rk) documented as of this encounter [...] AM CDT Narrative 04/30/2018 1:50 PM CDT [id number] [facility]73 [id number]^RESHMA^MAGO^N [facility] Heart Echocardiography Laboratory [address] [facility] [address] [place] [address] Name: RADHA VILLA : 1940 Study Date: 04/30/2018 11:04 AM Age: 77 yrs Gender: Male Patient Location: [facility] Reason For Study: , Paroxysmal atrial fi [...] 35-40%. Left ventricular systolic function is moderat vrenon reduced. Left ventricular diastolic function is indeterminate. [...] note might be different from the original. [id number] [facility] [id number]^RESHMA^MAGO^[facility] Heart Echocardiography Laboratory [address] [facility] [address] [place] [address] Name: RADHA VILLA : 1940 Study Date: 04/30/2018 11:04 AM Age: 77 yrs Gender: Male Patient Location: [facility] Reason For Study: , Paroxysmal atrial fi [...] Pop Pham 04/30/2018 01:50 PM Mago Sotomayor NURSING PROGRAM DIRECTOR DIRECTOR OF RETAIL OPERATIONS CV ECHO ORDERABLES documented in this encounter [...] On Sun04/30/18 at 1200, For 1 dose, [facility] [phone] documented in this encounter Care Teams Second Facing Baster Relationship Specialty Start Date End Date [facility], Vinny Jaimes PCP - General 01/16/18 07/01/18 [address] [place] [address] documented as of this encounter
--- OUTSIDE RECORDS SUMMARY | 2022-07-26 10:56 | XMS_ITS | Encounter Summary ---
:1940 Author Organization [place] Address [address] [facility] [place] [address] Care Team Providers Name Role Phone Clinic, [facility] Primary Care Provider [phone] Reason for Visit Reason Comments Pacemaker Check Rep check post cardioversion Encounter Details Date Type Department Care Team Description 05/07/2018 Documentation Only [facility] Fabiola Hurtado Check (Rep Heart Clinic Patt Bui RN, RN check post [address] [facility] HEART cardio vers... [address] [place] [address] [phone] [address] [place] [address] Social History Tobacco Use Types Packs/Day Years Used Date Smoking Tobacco: Never Smokeless Tobacco: Never Alcohol Use Standard Drinks/Week Comments No 0 (1 standard drink = 0.6 oz pure alcoho l) Sex Assigned at Date Recorded Not on file documented as of this encounter Progress Notes Fabiola Hurtado RN, RN - 05/07/2018 1:19 PM CDT [employer] PPM REP CHECK POST CARDIOVERSION [...] [address] [place] [address] (Wo rk) 08/16/2022 Office Visit Cardiology Timothy Smith MD [address] [place] [address] (Wo rk) documented as of this encounter Visit Diagnoses Not on filedocumented in this encounter Care Teams Salt Cutter Relationship Specialty Start Date End Date [facility], [facility] PCP - General 01/16/18 07/01/18 [address] [place] [phone] documented as of this encounter
--- OUTSIDE RECORDS SUMMARY | 2022-07-26 10:56 | XMS_ITS | Encounter Summary ---
:1940 Author Organization [place] Address [address] [facility] [place] [address] Care Team Providers Name Role Phone [facility] Primary Care Provider [phone] Reason for Visit (Routine) - Closed Specialty Diagnoses / Procedures Referred By Contact Refer red To Contact Respiratory Therapy Diagnoses 05/01 Dr. Smith wanted patient to get in before the end of the week. Persistent Atrial Fibrillation. Rh Respiratory Ther Procedures PULMONARY FUNCTION TEST [address] [place] [address] Phone: Referral ID Status Reason Start Date Expiration Date Visits Requ ested Visits Authorized [id number] Closed 05/02/2018 05/02/2019 1 1 Encounter Details Date Type Department Care Team Description 05/02/2018 Hospital Encounter [facility] Timothy Smith MD On amiodarone therapy (Primary Dx); [facility] Respiratory [address] Persis tent atrial fibrillation (H) Therapy [address] [place] [address] [place], [place] [phone] [address] (Work) [phone] Social History Tobacco Use Types Packs/Day Years [...] to this report. REFERRING PHYSICIAN: Timothy Smith INSPECTOR OUTSIDE STEAM DISTRIBUTION: Guera Hinojosa DIAGNOSIS: Amiodarone Therapy, Atrial Fibrillation, [...] MD MT: TALIA Name: RADHA VILLA Account: [id number] : 1940 Procedure Date: 05/02/2018 Document: [id number] cc: [facility] Timothy Smith MD documented in this encounter Plan of Treatment Upcoming Encounters Date Type Specialty Care Team Description 08/16/2022 Ancillary Procedure Cardiology Timothy Smith MD [address] [facility] [address] [address] [place] [address] (Wo rk) 08/16/2022 Office Visit Cardiology Timothy Smith MD [address] [place] [address] (Wo rk) Scheduled Orders Name Type Priority [...] MD MT: TALIA Name: RADHA VILLA Account: [id number] : 1940 Procedure Date: 05/02/20 18 Document: [id number] cc: [facility] Timothy Smith MD Julianna Vazquez MD PFT ORDERABLES Hemoglobin FUTURE anytime (05/02/2018 3:59 PM CDT) athologist Signature Hemoglobin 13.6 13.3 - 17.7 05/02/2018 [facility] g/dL 4:02 PM CDT HOSPITAL Specimen Anatomical Collection Method Collection Time Receive d Time (Source) Location / / Volume Laterality Blood specimen 05/02/2018 3:59 PM 018 4:00 (specimen) CDT PM CDT Timothy Smith MD LAB - BLOOD ORDERABLES Performing Organization Address City/State/ZIP Code Phon e Number M [facility] [address] [address] [facility] [address] [phone] General PFT Lab (Please always keep checked) (05/02/2018 3:23 PM CDT) athologist Signature FVC-Pred 3.67 L [place] PFT FVC-Pre 2.49 L [place] PFT FVC-%Pred-Pre 67 % [place] P[facility] FEV1-Pre 2.03 L [place] PFT FEV1-%Pred-Pre 74 % [place] PFT [id number] 72 % [place] PFT [id number] 81 % [place] PFT FEFMax-Pred 6.90 L/sec [place] PFT FEFMax-Pre 6.78 L/sec [place] PFT FEFMax-%Pred-Pr 98 % [place] PFT e [id number] 1.96 L/sec [place] PFT [id number] 2.06 L/sec [place] PFT [id number]-%Pred-P 105 % [place] PFT re ExpTime-Pre 6.47 sec [place] PFT FIFMax-Pre 5.17 L/sec [place] PFT VC-Pred 4.23 L [place] PFT VC-Pre 2.56 L [place] PFT VC-%Pred-Pre 60 % [place] PFT IC-Pred 4.20 L [place] PFT IC-Pre 2.31 L [place] PFT IC-%Pred-Pre 55 % [place] PFT ERV-Pred 0.03 L [place] PFT ERV-Pre 0.25 L [place] PFT ERV-%Pred-Pre 830 % [place] PFT [id number] 76 % [place] PFT [id number] 81 % [place] PFT FRCPleth-Pred 3.68 L [...] [place] PFT VA-%Pred-Pre 69 % [place] PFT [id number] 65 % [place] PFT [id number]-Phq 79 % [place] PFT Specimen (Source) Anatomical Collection Method Collection Time Re ceived Time Location / / Volume Laterality 05/02/2018 3:23 PM CDT Timothy Smith MD PFT ORDERABLES Performing Organization Address City/State/ZIP Code Phon e Number [facility] [facility] documented in this encounter Visit Diagnoses Diagnosis On amiodarone therapy - Primary Persistent atrial fibrillation (H) Atrial fibrillation documented in this encounter Care Teams Cordwood Cutter Helper Relationship Specialty Start Date End Date Kemar, Vinny Jaimes PCP - General 01/16/18 07/01/18 [address] [place] [phone] documented as of this encounter
--- OUTSIDE RECORDS SUMMARY | 2022-07-26 10:56 | XMS_ITS | Encounter Summary ---
:1940 Author Organization [place] Address [address] [facility] [place] [address] Care Team Providers Name Role Phone Clinic, [facility] Primary Care Provider [phone] Encounter Details Date Type Department Care Team Description 05/02/[address] [facility] Timothy Smith MD On amiodarone [facility] Laboratory [address] therapy [address] [place] [phone] Social History Tobacco Use Types Packs/Day Years [...] Procedure Cardiology Timothy Smith MD [address] [place] [address] (Fiorella olvera) 08/16/2022 Office Visit Cardiology Timothy Smith MD [address] [place] [phone] (Fiorella olvera) documented as of this encounter Procedures Procedure Name Priority Date/Time Associated Diagnosis Comme nts HEMOGLOBIN Routine 05/02/2018 3:59 PM On amiodarone therapy Results for this CDT procedure are i n the results section . documented in this encounter Results Hemoglobin FUTURE anytime (05/02/2018 3:59 PM CDT) P athologist Signature Hemoglobin 13.6 13.3 - 17.7 05/02/2018 [facility] g/dL 4:02 PM CDT HOSPITAL Specimen Anatomical Collection Method Collection Time Receive d Time (Source) Location / / Volume Laterality Blood specimen 05/02/2018 3:59 PM 018 4:00 (specimen) CDT PM CDT Timothy Smith MD LAB - BLOOD ORDERABLES Performing Organization Address City/State/ZIP Code Phon e Number M [facility] [address] [place], [place] [address] [facility] [address] [place], [place] [address] [place] [address] documented in this encounter Visit Diagnoses Diagnosis On amiodarone therapy documented in this encounter Care Teams Pack Room Operator Relationship Specialty Start Date End Date [facility], [place] PCP - General 01/16/18 07/01/1835134 [place] [phone] documented as of this encounter
--- OUTSIDE RECORDS SUMMARY | 2022-07-26 10:56 | XMS_ITS | Encounter Summary ---
:1940 Author Organization [place] Address [facility] [place] [address] Care Team Providers Name Role Phone Clinic, [place] [place] Primary Care Provider [phone] Slava Hernandez PA-C Primary Care Provider Reason for Visit Reason Comments FU After EP Procedure S/p unsuccessful DCCV on 05/07 Encounter Details Date Type Department Care Team Description 05/21/2018 Office Visit [facility] Timothy Smith MD [address] 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); [address] [facility] Sleep professor of nursing ea, unspecified type; South [address] Cardiomyopathy, unspecified type (H); [place] Typical atrial flutter (H); [phone] Ischemic cardiomyopathy [phone] Social History Tobacco Use Types Packs/Day Years [...] Afib RNs: Lacy Del Rosario and Pat [phone] Call for Electrophysiology procedure scheduling concerns [phone] Device Clinic (Pacemakers, ICDs, Loop Recorders) RN's: Sammi Cotton Lynda, MJ, Stephanie, Sue During business hours: [phone] documented in this encounter Progress Notes Elda [...] any questions or concerns. Elda Johnson APRN, EVENT SPECIALIST This note was completed in part using Team-Match voice recognition software. Although reviewed after completion, [...] (H) Yes ??? 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 Sleep [...] [address] [place] [address] [employer] documented in this encounter Plan of Treatment Upcoming Encounters Date Type Specialty Care Team Description 08/16/2022 Ancillary Procedure Cardiology Timothy Smith MD [address] [place] [phone] (Wo rk) 08/16/2022 Office Visit Cardiology Timothy Smith MD [address] [place] [address] (Wo rk) documented as of this encounter [...] is no t available. 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
--- OUTSIDE RECORDS SUMMARY | 2022-07-26 10:56 | XMS_ITS | Encounter Summary ---
:1940 Author Organization [place] Address [facility] [place] [address] Care Team Providers Name Role Phone Clinic, [facility] Primary Care Provider [phone] Reason for Referral - Closed Specialty Diagnoses / Procedures Referred By Contact Refer red To Contact Diagnoses Typical atrial flutter (H) Timothy Smith MD [address] [place] [address] Referral ID Status Reason Start Date Expiration Date Visits Requ ested Visits Authorized [id number] Closed 05/31/2018 05/31/2019 1 1 Encounter Details Date Type Department Care Team Description 05/31/2018 Hospital Encounter [facility] Timothy Smith MD Typical atrial [facility] [address] flutter (H ) [address] [place] [address] [place] [phone] Social History Tobacco Use Types Packs/Day Years [...] [address] [place] [address] (Wo rk) 08/16/2022 Office Visit Cardiology Timothy Smith MD [address] [place] [address] (Wo rk) Scheduled Referrals Name Type Priority Associated Diagnoses Order S chedule Follow-Up with Referral Routine Typical atrial Expected: Finished Stock Inspector flutter (H) 07/30/20 18 (Approximate), Expires: 05/31/2019 [...] 12-lead, tracing only (05/31/2018 1:40 PM CDT) [facility] Method Time Signature Interpretation ECG Click View RADIOLOGY Image link RESULTS to view waveform and result Specimen (Source) Anatomical Collection Method Collection Time Re ceived Time Location / / Volume Laterality 05/31/2018 1:40 PM CDT Timothy Smith MD ECG ORDERABLES Performing Organization Address City/State/ZIP Code Phon e Number RADIOLOGY RESULTS EKG 12-lead, tracing only (05/31/2018 11:43 AM CDT) [facility] Method Time Signature Interpretation ECG Click View [...] Signature WBC 7.5 4.0 - 11.0 05/31/2018 [place] 10e9/L 12:33 PM T [facility] RBC Count 4.39 (L) 4.4 - 5.9 05/31/2018 [facility] 10e12/L 12:33 PM T [facility] Hemoglobin 14.0 13.3 - 05/31/2018 [facility] 17.7 g/dL 12:33 PM T [facility] Hematocrit 42.3 40.0 - 05/31/2018 [facility] 53.0 % 12:33 PM T [facility] MCV 96 78 - 100 05/31/2018 [facility] fl 12:33 PM T [facility] MCH 31.9 26.5 - 05/31/2018 [facility] 33.0 pg 12:33 PM [facility] MCHC 33.1 31.5 - 05/31/2018 [facility] 36.5 g/dL 12:33 PM [facility] RDW 14.8 10.0 - 05/31/2018 [facility] 15.0 % 12:33 PM [facility] Platelet Count 228 150 - 450 05/31/2018 [place] 10e9/L 12:33 PM [facility] Specimen Anatomical Collection Method Collection Time Receive d Time (Source) Location / / Volume Laterality Blood specimen 05/31/2018 11:30 8 (specimen) AM CDT 12:30 PM CDT Timothy Smith MD LAB - BLOOD ORDERABLES Performing Organization Address City/[facility]/ZIP Code Phon e Number M [facility] [address] [address] [facility] [address] [place] [address], U [phone] (ABNORMAL) Basic metabolic panel (05/31/2018 11:30 AM CDT) P athologist Signature Sodium 140 133 - 144 05/31/2018 [place] mmol/L 12:50 PM [facility] Potassium 4.2 3.4 - 5.3 05/31/2018 [place] mmol/L 12:50 PM [facility] Chloride 104 94 - 109 05/31/2018 [place] mmol/L 12:50 PM [facility] Carbon Dioxide 29 20 - 32 05/31/2018 [place] mmol/L 12:50 PM [facility] Anion Gap 7 3 - 14 05/31/2018 [place] mmol/L 12:50 PM [facility] Glucose 119 (H) 70 - 99 05/31/2018 [place] mg/dL 12:50 PM [facility] Urea Nitrogen 27 7 - 30 05/31/2018 [place] mg/dL 12:50 PM [facility] Creatinine 1.20 0.66 - 05/31/2018 [place] 1.25 mg/dL 12:50 PM [facility] GFR Estimate 58 (L) >60 05/31/2018 [place] mL/min/1.7 12:[address] Comment: Non GFR Calc GFR Estimate If 71 >60 mL/min/1.7m2 05/31/2018 12:50 PM [facility] Comment: GFR Calc Calcium 9.1 8.5 - 10.1 mg/dL 05/31/2018 12:50 PM [facility] Specimen Anatomical Collection Method Collection Time Receive d Time (Source) Location / / Volume Laterality Blood specimen 05/31/2018 11:30 8 (specimen) AM CDT 12:30 PM T Timothy Smith MD LAB - BLOOD ORDERABLES Performing Organization Address City/State/ZIP Code Phon e Number M [facility] [address] [address] [facility] [address] [address], [facility] [phone] documented in this encounter Visit Diagnoses Diagnosis [...] Pre-procedure documented in this encounter Care Teams Sap Integration Architect Relationship Specialty Start Date End Date Clinic, Vinny Jaimes PCP - General 01/16/18 07/01/18 [address] [place] [address] documented as of this encounter
--- OUTSIDE RECORDS SUMMARY | 2022-07-26 10:56 | XMS_ITS | Encounter Summary ---
:1940 Author Organization [place] Address [facility] [place] [address] Care Team Providers Name Role Phone Clinic, [facility] Primary Care Provider [phone] Reason for Visit Reason Onset Date Comments Clinic Care Coordination - Follow-up 05/31/2018 Encounter Details Date Type Department Care Team Description 05/31/2018 Telephone [facility] Heart Temitope Tamayo, Clinic Care Coordination Clinic Patt RN - Follow-up [address] [facility] [address] [place] [phone] Social [...] 08/16/2022 Ancillary Procedure Cardiology Timothy Smith MD [address] [facility] [address] [place] [phone] (Wo rk) 08/16/2022 Office Visit Cardiology Timothy Smith MD [address] [place] [address] (Wo rk) documented as of this encounter Visit Diagnoses Not on filedocumented in this encounter Care Teams Metal Polisher Relationship Specialty Start Date End Date [facility], [facility] PCP - General 01/16/18 07/01/18 [address] [place] [address] documented as of this encounter
--- OUTSIDE RECORDS SUMMARY | 2022-07-26 10:57 | XMS_ITS | Encounter Summary ---
:1940 Author Organization [place] Address [address] [facility] [place] [address] Care Team Providers Name Role Phone Graham Licona MD Primary Care Provider Reason for Visit Reason Onset Date Comments Prior Auth - Medication 12/28/2017 apixaban ANTICOA GULANT (ELIQUIS) 5 MG tablet -TIER EXCEPTION approved Encounter Details Date Type Department Care Team Description 12/28/2017 Telephone [facility] Timothy Smith MD Prior Auth - Medication [facility] [place] [address] (apixaban ANTICOAGULANT [address] (ELIQUIS) 5 MG tablet [facility] [address] [place] [address] -TIER EXCEPTION approved [place] [id number] ) Social History Tobacco Use Types Packs/Day [...] Reference #: CMM GALICIA [id number] 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 He states his copay is now $590.00 and needs another tier exception. Patient's phone: [phone] documented in this encounter Plan of Treatment Upcoming Encounters Date Type Specialty Care Team Description 08/16/2022 Ancillary Procedure Cardiology Timothy Smith MD [address] [place] [phone] (Wo rk) 08/16/2022 Office Visit Cardiology Timothy Smith MD [address] [place] [phone] (Wo rk) documented as of this encounter Visit Diagnoses Not on filedocumented in this encounter Care Teams Recruitment Specialist Relationship Specialty Start Date End Date Graham Licona MD PCP - General Family Practice 04/13/17 01/15/18 [facility] [address] [place] [address] documented as of this encounter
--- OUTSIDE RECORDS SUMMARY | 2022-07-26 10:57 | XMS_ITS | Encounter Summary ---
:1940 Author Organization [place] Address [address] [facility] [place] [address] Care Team Providers Name Role Phone Graham Licona MD Primary Care Provider Reason for Visit Reason Comments Pacemaker Check Alert Encounter Details Date Type Department Care Team Description 06/12/2017 Documentation Only [facility] Pace maker Check Heart Clinic Patt RN (Alert) [address] [facility] [address] [place] [phone] Social History Tobacco Use Types Packs/Day Years Used Date Smoking Tobacco: Never Alcohol Use Standard Drinks/Week Comments No 0 (1 standard drink = 0.6 oz pure alcoho l) Sex Assigned at Date Recorded Not on file documented as of this encounter Progress Notes Lula Pa RN - 06/12/2017 2:50 PM CDT [employer]-Alert for VHR Latitude alert for VT episode occurrence received- EGMs showed RVR response to AF, rates 160-170 bpm, longest lasting 1 minute. Patient is in chronic AF and is on Eliquis. Will continue to monitor. Heide Pa RN documented in this encounter Plan of Treatment Upcoming Encounters Date Type Specialty Care Team Description 08/16/2022 Ancillary Procedure Cardiology Timothy Smith MD [address] [facility] [address] [place] [address] (Wo rk) 08/16/2022 Office Visit Cardiology Timothy Smith MD [address] [place] [address] (Wo rk) documented as of this encounter Visit Diagnoses Not on filedocumented in this encounter Care Teams Pizza Driver Relationship Specialty Start Date End Date Graham Licona MD PCP - General Family Practice 04/13/17 01/15/18 [facility] [address] [place] [address] documented as of this encounter
--- OUTSIDE RECORDS SUMMARY | 2022-07-26 10:57 | XMS_ITS | Encounter Summary ---
:1940 Author Organization [place] Address [facility] [place] [address] Care Team Providers Name Role Phone Graham Licona MD Primary Care Provider Reason for Visit Reason Onset Date Comments Refill Request 08/10/2017 metoprolol Encounter Details Date Type Department Care Team Description 08/10/2017 Refill [facility] Heart Zarina Smith MD Refill Request Clinic Patt [address] (metoprolol) [address] [phone] [address] [place] [address] [place] [phone] Social History Tobacco Use Types Packs/Day Years [...] [address] [place] [phone] (Wo rk) 08/16/2022 Office Visit Cardiology Timothy Smith MD [address] [place] [phone] (Wo rk) documented as of this encounter Visit Diagnoses Diagnosis PAF (paroxysmal atrial fibrillation) (H) Atrial fibrillation documented in this encounter Care Teams Photography Coordinator Relationship Specialty Start Date End Date Graham Licona MD PCP - General Family Practice 04/13/17 01/15/18 [facility] [address] [place] [address] documented as of this encounter
--- OUTSIDE RECORDS SUMMARY | 2022-07-26 10:57 | XMS_ITS | Encounter Summary ---
:1940 Author Organization [place] Address [facility] [place] [address] Care Team Providers Name Role Phone Graham Licona MD Primary Care Provider Reason for Visit Reason Onset Date Comments Refill Request 05/07/2017 Encounter Details Date Type Department Care Team Description 05/07/2017 Refill [facility] Selena Reynoso RN Refill Request [facility] [address] [facility] [address] [place] [phone] Social History Tobacco Use Types Packs/Day Years [...] [address] [place] [address] (Wo rk) 08/16/2022 Office Visit Cardiology Timothy Smiht MD [address] [place] [phone] (Wo rk) documented as of this encounter Visit Diagnoses Diagnosis PAF (paroxysmal atrial fibrillation) (H) - Primary Atrial fibrillation documented in this encounter Care Teams Technical Support Specialist Relationship Specialty Start Date End Date Graham Licona MD PCP - General Family Practice 04/13/17 01/15/18 [facility] [address] [place] [address] documented as of this encounter
--- OUTSIDE RECORDS SUMMARY | 2022-07-26 10:57 | XMS_ITS | Encounter Summary ---
:1940 Author Organization [place] Address [facility] [place] [address] Care Team Providers Name Role Phone Clinic, [facility] Primary Care Provider [phone] Reason for Referral - Closed Specialty Diagnoses / Procedures Referred By Contact Refer red To Contact Diagnoses SOB (shortness of breath) Ankur Smith MD [address] [place] [address] Referral ID Status Reason Start Date Expiration Date Visits Requ ested Visits Authorized [id number] Closed 01/23/2018 01/23/2019 1 1 V Testing - Closed Specialty Diagnoses / Procedures Referred By Contact Refer red To Contact Cardiology Diagnoses SOB (shortness of breath) Ankur Smith MD [facility] Procedures Holter Monitor 24 hour - Adult [email or web address] [address] [place] [address] [address] [place] [address] Phone: Fax: Referral ID Status Reason Start Date Expiration Date Visits Requ ested Visits Authorized [id number] Closed 01/17/2018 01/23/2019 1 1 Reason for Visit Reason Comments Annual Visit f/u OV for AF - Closed Specialty Diagnoses / Procedures Referred By Contact Refer red To Contact Diagnoses Typical atrial flutter (H) Ankur Smith MD [address] [place] [address] Referral ID Status Reason Start Date Expiration Date Visits Requ ested Visits Authorized [id number] Closed 12/19/2017 12/19/2018 1 1 Encounter Details Date Type Department Care Team Description 01/16/2018 Office Visit [facility] Ankur Smith MD SOB (shortness of breath) (Primary Dx); [facility] [address] Typical atrial flutter (H) [address] [facility] [address] [facility] [address] [place] [address] [place] [phone] Social History Tobacco Use Types Packs/Day Years [...] followup of atrial fibrillation. He is a [id number] male who had a pacemaker implanted for [...] MD MT: AISHWARYA Name: RADHA VILLA Account: [id number] : 1940 Service Date: 01/16/2018 Document: [id number] Ankur Smith MD - 01/16/2018 9:45 AM [...] MD [address] [place] [address] documented in this encounter Plan of Treatment Upcoming Encounters Date Type Specialty Care Team Description 08/16/2022 Ancillary Procedure Cardiology Ankur Smith MD [address] [place] [phone] (Wo rk) 08/16/2022 Office Visit Cardiology Ankur Smith MD [address] [place] [address] (Wo rk) Scheduled Referrals Name Type Priority [...] [facility] mmol/L 10:46 AM CDT [facility] Carbon Dioxide 29 23 - 29 01/23/2018 [facility] mmol/L 10:46 AM T [facility] Anion Gap 15.4 6 - 17 01/23/2018 [facility] mmol/L 10:46 AM CDT [facility] Glucose 152 (H) 70 - 105 01/23/2018 [facility] mg/dL 10:46 AM CDT [facility] Urea Nitrogen 27 7 - 30 01/23/2018 [facility] mg/dL 10:46 AM T [facility] Creatinine 1.27 0.70 - 01/23/2018 [facility] 1.30 mg/dL 10:46 AM CDT [facility] GFR Estimate 55 (L) >60 01/23/2018 [facility] mL/min/1.7 10:46 AM CDT [facility] m2 A GFR Estimate If 66 >60 01/23/2018 [facility] [place] mL/min/1.7 10:46 AM CDT [facility] m2 A Calcium 10.1 8.5 - 10.5 01/23/2018 [facility] mg/dL 10:46 AM CDT [facility] A Specimen Anatomical Collection Method Collection Time Receive d Time (Source) Location / / Volume Laterality Blood specimen 01/23/2018 9:50 AM 018 9:51 (specimen) CDT AM CDT Ankur Smith MD LAB - BLOOD ORDERABLES Performing Organization Address City/State/ZIP Code Phon e Number [facility] [address] [place] [address] [address] Holter Monitor 24 hour - Adult (01/21/2018 10:09 AM CDT) [facility] Method Time Signature Interpretation Click View RADIOLOGY Investigator Internal Affairs Image link RESULTS to view waveform and [...] flutter documented in this encounter Care Teams Zoo Director Relationship Specialty Start Date End Date [facility], Vinny Jaimes PCP - General 01/16/18 07/01/18 [address] [address] [place] [phone] documented as of this encounter
--- OUTSIDE RECORDS SUMMARY | 2022-07-26 10:57 | XMS_ITS | Encounter Summary ---
:1940 Author Organization [place] Address [facility] [place] [address] Care Team Providers Name Role Phone [facility] Primary Care Provider [phone] Encounter Details Date Type Department Care Team Description 02/22/2018 [facility] emic cardiomyopathy Clinic [address] [place] [address] Social History Tobacco Use [...] [address] [place] [address] (Wo rk) 08/16/2022 Office Visit Cardiology Timothy Smith MD [address] [place] [phone] (Wo rk) documented as of this encounter Procedures Procedure Name Priority Date/Time Associated Diagnosis Comme nts BASIC METABOLIC Routine 02/22/2018 9:11 AM Ischemic cardiomyop athy Results for this PANEL CDT procedure are i n the results section. documented in this encounter Results (ABNORMAL) Basic metabolic panel (02/22/2018 9:11 AM CDT) P athologist Signature Sodium 143 133 - 144 02/22/2018 [place] mmol/L 10:15 AM [facility] Potassium 4.2 3.4 - 5.3 02/22/2018 [place] mmol/L 10:15 AM [facility] Chloride 108 94 - 109 02/22/2018 [place] mmol/L 10:15 AM [facility] Carbon Dioxide 30 20 - 32 02/22/2018 [place] mmol/L 10:15 AM [facility] Anion Gap 5 3 - 14 02/22/2018 [place] mmol/L 10:15 AM [facility] Glucose 151 (H) 70 - 99 02/22/2018 [place] mg/dL 10:15 AM [facility] Urea Nitrogen 30 7 - 30 02/22/2018 [place] mg/dL 10:15 AM [facility] Creatinine 1.17 0.66 - 02/22/2018 [place] 1.25 mg/dL 10:15 AM [facility] GFR Estimate 60 (L) >60 02/22/2018 [place] mL/min/1.7 10:[address] Comment: Non GFR Calc GFR Estimate If 73 >60 mL/min/1.7m2 02/22/2018 10:15 AM [facility] Comment: GFR Calc Calcium 9.1 8.5 - 10.1 mg/dL 02/22/2018 10:15 AM [facility] Specimen Anatomical Collection Method Collection Time Receive d Time (Source) Location / / Volume Laterality Blood specimen 02/22/2018 9:11 AM 018 9:17 (specimen) [facility] Mago Sotomayor APRN COUNTER POCKET SEWER LAB - BLOOD ORDERABLES Performing Organization Address City/State/ZIP Code Phon e Number M [facility] [address] [address] [facility] [address] [phone] documented in this encounter Visit Diagnoses Diagnosis Ischemic cardiomyopathy Other specified forms of chronic ischemi c heart disease documented in this encounter Care Teams Chairlift Operator Relationship Specialty Start Date End Date Vinny Reinoso PCP - General 01/16/18 07/01/18 [address] [place] [address] documented as of this encounter
--- OUTSIDE RECORDS SUMMARY | 2022-07-26 10:57 | XMS_ITS | Encounter Summary ---
:1940 Author Organization [place] Address [address] [facility] [place] [address] Care Team Providers Name Role Phone Clinic, [facility] Primary Care Provider [phone] Reason for Referral - Closed Specialty Diagnoses / Procedures Referred By Contact Refer red To Contact Diagnoses Paroxysmal atrial fibrillation (H) Ischemic cardiomyopathy Mago Sotomayor APRN CNP [address] [place] [address] Referral ID Status Reason Start Date Expiration Date Visits Requ ested Visits Authorized [id number] Closed 04/23/2018 04/23/2019 1 1 Reason for Visit Reason Comments Follow Up Holter /Echo - Closed Specialty Diagnoses / Procedures Referred By Contact Refer red To Contact Diagnoses SOB (shortness of breath) Timothy Smith MD [address] [place] [address] Referral ID Status Reason Start Date Expiration Date Visits Requ ested Visits Authorized [id number] Closed 01/23/2018 01/23/2019 1 1 Encounter Details Date Type Department Care Team Description 01/23/2018 Office Visit [facility] Timothy Smith MD [address] [place] [id number] Ischemic cardiomyopathy (Primary Dx); Heart Clinic Mago Kessler, SERVICES EXECUTIVE FURNITURE SALES CONSULTANT [address] [place] [phone] Paroxysmal atrial fibrillation (H); [address] SOB (shor tness of breath); [address] 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 His [...] proceed with cardioversion to see if the voodoo of atrial kick helps improve his EF. [...] NP MT: AISHWARYA Name: RADHA VILLA Account: [id number] : 1940 Service Date: 01/23/2018 Document: [id number] Mago Keating APRN CNP - 01/23/2018 11:00 AM CDT HPI and Plan: #[id number] See dictation Orders Placed This Encounter Procedures [...] Psych: Alert and Oriented x 3 CC [facility] [address] [place] [address] documented in this encounter Plan of Treatment Upcoming Encounters Date Type Specialty Care Team Description 08/16/2022 Ancillary Procedure Cardiology Timothy Smith MD [address] [place] [address] (Wo rk) 08/16/2022 Office Visit Cardiology Timothy Smith MD [address] [place] [address] (Wo rk) Scheduled Referrals Name Type Priority Associated Diagnoses Order S chedule Follow-Up with Referral Routine Paroxysmal atrial Expected : Chore Tender fibrillation (H) 04/23/2018 Ischemic cardiomyopathy ([place]), Expires: 01/23/2019 documented as of this encounter Results (ABNORMAL) Basic metabolic panel (02/22/2018 9:11 AM CDT) athologist Signature Sodium 143 133 - 144 02/22/2018 [facility] mmol/L 10:15 AM [facility] Potassium 4.2 3.4 - 5.3 02/22/2018 [place] mmol/L 10:15 AM [facility] Chloride 108 94 - 109 02/22/2018 [place] mmol/L 10:15 AM [facility] Carbon Dioxide 30 20 - 32 02/22/2018 [place] mmol/L 10:15 AM [facility] Anion Gap 5 3 - 14 02/22/2018 [place] mmol/L 10:15 AM [facility] Glucose 151 (H) 70 - 99 02/22/2018 [facility] mg/dL 10:15 AM [facility] Urea Nitrogen 30 7 - 30 02/22/2018 [place] mg/dL 10:15 AM [facility] Creatinine 1.17 0.66 - 02/22/2018 [facility] 1.25 mg/dL 10:15 AM [facility] GFR Estimate 60 (L) >60 02/22/2018 [place] mL/min/1.7 10:[address] Comment: Non GFR Calc GFR Estimate If 73 >60 mL/min/1.7m2 02/22/2018 10:15 AM [facility] Comment: GFR Calc Calcium 9.1 8.5 - 10.1 mg/dL 02/22/2018 10:15 AM CDT [facility] Specimen Anatomical Collection Method Collection Time Receive d Time (Source) Location / / Volume Laterality Blood specimen 02/22/2018 9:11 AM 018 9:17 (specimen) CDT AM CDT Mago N Светлана SERVICES EXECUTIVE FURNITURE SALES CONSULTANT LAB - BLOOD ORDERABLES Performing Organization Address City/State/ZIP Code Phon e Number M [place] [address] [address] [place], [place] [address] [facility] [address] [phone] documented in this encounter Visit Diagnoses Diagnosis Ischemic cardiomyopathy - Primary Other specified forms of chronic ischemi c heart disease Paroxysmal atrial fibrillation (H) Atrial fibrillation SOB (shortness of breath) Shortness of breath 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
--- OUTSIDE RECORDS SUMMARY | 2022-07-26 10:57 | XMS_ITS | Encounter Summary ---
:1940 Author Organization [place] Address [address] [place] [address] Care Team Providers Name Role Phone Clinic, [facility] Primary Care Provider [phone] Reason for Visit (Routine) - Closed Specialty Diagnoses / Procedures Referred By Contact Refer red To Contact Cardiology Diagnoses Per Sarah SOB (shortness of breath) Katelynn Cv Echocard Procedures [facility] [address] [address] [place] [address] Phone: Referral ID Status Reason Start Date Expiration Date Visits Requ ested Visits Authorized [id number] Closed 01/17/2018 01/17/2019 1 1 Encounter Details Date Type Department Care Team Description 01/17/2018 Hospital Encounter [place] DallinnAkur Ramirez MD SOB (shortness of CV Echocardiography [address] breath) [id number] [place] [address] [facility] [phone] [place] [address] (Work) [phone] Social History Tobacco Use Types Packs/Day Years [...] 08/16/2022 Ancillary Procedure Cardiology Ankur Smith MD [address] [place] [id number] (Wo rk) 08/16/2022 Office Visit Cardiology Ankur Smith MD [address] [place] [address] (Wo rk) documented as of this encounter [...] AM CDT Narrative 01/17/2018 2:54 PM CDT [id number]^SARAH^ANKUR^ [facility] Heart Echocardiography Laboratory [address] [place] [address] [address] [place] [address] Name: ARDHA VILLA : 1940 Study Date: 01/17/2018 09:58 AM Age: 77 yrs Gender: Male Patient Location: [facility] Reason For Study: , SOB (shortness of [...] note might be different from the original. [id number] [facility] [id number]^SARAH^ANKUR^ [facility] Heart Echocardiography Laboratory [address] [facility] [address] [place], [place] [address] Name: RADHA VILLA : 1940 Study Date: 01/17/2018 09:58 AM Age: 77 yrs Gender: Male Patient Location: [facility] Reason For Study: , SOB (shortness of [...] dose documented in this encounter Care Teams Antitank Assault Gunner Relationship Specialty Start Date End Date [facility], [facility] PCP - General 01/16/18 07/01/18 [address] [place] [address] documented as of this encounter
--- OUTSIDE RECORDS SUMMARY | 2022-07-26 10:57 | XMS_ITS | Encounter Summary ---
:1940 Author Organization [place] Address [facility] [place] [address] Care Team Providers Name Role Phone Graham Licona MD Primary Care Provider Reason for Visit Reason Onset Date Comments Refill Request 08/13/2017 Encounter Details Date Type Department Care Team Description 08/13/[address] [facility] Heart Zarina Smith MD Refill Request [facility] [place] [address] [place] [address] [facility] [address] [place] [phone] [phone] Social History Tobacco Use Types Packs/Day Years [...] Smith MD [address] [place] [address] (Wo rk) 08/16/2022 Office Visit Cardiology Timothy Smith MD [address] [place] [address] (Wo rk) documented as of this encounter Visit Diagnoses Not on filedocumented in this encounter Care Teams Target Man Relationship Specialty Start Date End Date Graham Licona MD PCP - General Family Practice 04/13/17 01/15/18 [facility] [address] [place] [id number] documented as of this encounter
--- OUTSIDE RECORDS SUMMARY | 2022-07-26 10:57 | XMS_ITS | Encounter Summary ---
:1940 Author Organization [place] Address Critical access [facility] [place] [address] Care Team Providers Name Role Phone Clinic, [facility] Primary Care Provider [phone] Reason for Referral - Closed Specialty Diagnoses / Procedures Referred By Contact Refer red To Contact Diagnoses Persistent atrial fibrillation (H) Ankur Smith MD [address] [place] [address] Referral ID Status Reason Start Date Expiration Date Visits Requ ested Visits Authorized [id number] Closed 07/04/2018 07/04/2019 1 1 iagnostic Imaging XR - Closed Specialty Diagnoses / Procedures Referred By Contact Refer red To Contact Radiology. Diagnoses Persistent atrial fibrillation (H) Ankur Smith MD Rh Xray Procedures XR Chest [address] [place] [address] [place] [address] Phone: Fax: Referral ID Status Reason Start Date Expiration Date Visits Requ ested Visits Authorized [id number] Closed 05/02/2018 05/07/2019 1 1 V Testing - Closed Specialty Diagnoses / Procedures Referred By Contact Refer red To Contact Diagnoses Persistent atrial fibrillation (H) Ankur Smith MD Procedures Cardioversion [address] [place] [address] Referral ID Status Reason Start Date Expiration Date Visits Requ ested Visits Authorized [id number] Closed 05/07/2018 05/07/2019 1 1 Reason for Visit Reason Comments Results echo for review - Closed Specialty Diagnoses / Procedures Referred By Contact Refer red To Contact Diagnoses Paroxysmal atrial fibrillation (H) Ischemic cardiomyopathy Mago Sotomayor, FLACO DISPLAY DESIGNER OUTSIDE [address] [place] [phone] Referral ID Status Reason Start Date Expiration Date Visits Requ ested Visits Authorized [id number] Closed 04/23/2018 04/23/2019 1 1 Encounter Details Date Type Department Care Team Description 04/30/2018 Office Visit [facility] Mago Sotomayor, FLACO DISPLAY DESIGNER OUTSIDE [address] [place] [phone] Persistent atrial fibrillation (H) (Prim arnie Dx); Heart Clinic Ankur Beauchamp MD [address] [place] [id number] Paroxysmal atrial fibrillation (H); [address] [facility] Ischemic cardiomyopathy South [address] [place] [phone] Social History Tobacco Use Types Packs/Day Years [...] patient will have baseline amiodarone testing in [place]. cc: [address] [address] ANKUR SMITH MD MT: [place]IE Name: RADHA VILLA Account: [id number] : 1940 Service Date: 04/30/2018 Document: [id number] Ankur Smith MD - 04/30/2018 2:15 PM CDT HPI and Plan: See dictation Orders Placed This Encounter Procedures ??? XR Chest 1 View ??? Basic metabolic panel ??? Hepatic panel ??? TSH ??? Follow-Up with [facility] ??? EKG 12-lead complete w/read (Future)- to [...] Muscular Skeletal: Neurological: Psych: CC Mago Keating, SPRAY CEMENTER DISPLAY DESIGNER OUTSIDE [address] [facility] [address] [place] [address] Ankur Smith MD - 04/30/2018 2:15 PM CDT HPI and Plan: See dictation Orders Placed This Encounter Procedures ??? XR Chest 1 View ??? Basic metabolic panel ??? Hepatic panel ??? TSH ??? Follow-Up with [facility] [employer] ??? EKG 12-lead complete w/read (Future)- to [...] Muscular Skeletal: Neurological: Psych: CC Mago Keating, SPRAY CEMENTER DISPLAY DESIGNER OUTSIDE [address] [place] [address] documented in this encounter Plan of Treatment Upcoming Encounters Date Type Specialty Care Team Description 08/16/2022 Ancillary Procedure Cardiology Ankur Smith MD [address] [place] [address] (Wo rk) 08/16/2022 Office Visit Cardiology Ankur Smith MD [address] [place], [place] [address] (Wo rk) Scheduled Orders Name Type Priority Associated Diagnoses Order S chedule Cardioversion Echocardiography Routine Persistent atrial Expec star: 05/07/2018 fibrillation (H) (Approximat e), Expires: 2018 Scheduled Referrals Name Type Priority Associated Diagnoses Order S chedule Follow-Up with Referral Routine Persistent atrial Expected : [employer] fibrillation (H) 12/2017 (Approximate), Expires: 04/30/2019 documented as of this encounter Results EKG 12-lead complete w/read (Future)- to be scheduled (07/02/2018 9:53 AM CDT) Narrative This result has an attachment that is no t available. Ankur Smith MD ECG ORDERABLES TSH (05/03/2018 9:58 AM CDT) P athologist Signature TSH 3.79 0.40 - 4.00 05/03/2018 [facility] mU/L 10:39 AM CDT HOSPITAL Specimen Anatomical Collection Method Collection Time Receive d Time (Source) Location / / Volume Laterality Blood specimen 05/03/2018 9:58 AM 018 9:59 (specimen) CDT AM CDT Ankur Smith MD LAB - BLOOD ORDERABLES Performing Organization Address [facility]/ZIP [facility] Phon e Number Karey [facility] [address] [place], [place] [address] [facility] [address] [place], [place] [address], [facility] [phone] (ABNORMAL) Hepatic panel (05/03/2018 9:58 AM CDT) Analysis Performed At Patho logist Time Signature Bilirubin Direct 0.4 (H) 0.0 - 0.2 05/03/2018 [place] mg/dL 10:33 AM [facility] Bilirubin Total 1.0 0.2 - 1.3 05/03/2018 [place] mg/dL 10:33 AM [facility] Albumin 3.7 3.4 - 5.0 05/03/2018 [place] g/dL 10:33 AM [facility] Protein Total 7.9 6.8 - 8.8 05/03/2018 [place] g/dL 10:33 AM [facility] Alkaline 29 (L) 40 - 150 05/03/2018 [place] Phosphatase U/L 10:33 AM [facility] ALT 31 0 - 70 U/L 05/03/2018 [place] 10:33 AM [facility] AST 25 0 - 45 U/L 05/03/2018 [place] 10:33 AM [facility] Specimen Anatomical Collection Method Collection Time Receive d Time (Source) Location / / Volume Laterality Blood specimen 05/03/2018 9:58 AM 018 9:59 (specimen) CDT AM T Ankur Smith MD LAB - BLOOD ORDERABLES Performing Organization Address [facility] Phon e Daniel Eden [facility] [address] [place], [place] [address] [facility] [address] [place], [place] [address] [phone] (ABNORMAL) Basic metabolic panel (05/03/2018 9:58 AM CDT) P athologist Signature Sodium 138 133 - 144 05/03/2018 [place] mmol/L 10:33 AM [facility] Potassium 4.5 3.4 - 5.3 05/03/2018 [place] mmol/L 10:33 AM [facility] Chloride 100 94 - 109 05/03/2018 [place] mmol/L 10:33 AM [facility] Carbon Dioxide 31 20 - 32 05/03/2018 [place] mmol/L 10:33 AM [facility] Anion Gap 7 3 - 14 05/03/2018 [place] mmol/L 10:33 AM [facility] Glucose 150 (H) 70 - 99 05/03/2018 [place] mg/dL 10:33 AM [facility] Urea Nitrogen 34 (H) 7 - 30 05/03/2018 [place] mg/dL 10:33 AM [facility] Creatinine 1.25 0.66 - 05/03/2018 [place] 1.25 mg/dL 10:33 AM [facility] GFR Estimate 56 (L) >60 05/03/2018 [place] mL/min/1.7 10:[address] Comment: Non GFR Calc GFR Estimate If 67 >60 mL/min/1.7m2 05/03/2018 10:33 AM [facility] Comment: GFR Calc Calcium 9.2 8.5 - 10.1 mg/dL 05/03/2018 10:33 AM [facility] Specimen Anatomical Collection Method Collection Time Receive d Time (Source) Location / / Volume Laterality Blood specimen 05/03/2018 9:58 AM 018 9:59 (specimen) CDT AM CDT Ankur Smith MD LAB - BLOOD ORDERABLES Performing Organization Address City/State/ZIP Code Phon e Number M [facility] [address] [place], [place] [address] [facility] [address] [phone] XR Chest 1 View (05/02/2018 4:14 PM [...] Diagnoses Diagnosis Persistent atrial fibrillation (H) - [facility] jing Atrial fibrillation Paroxysmal atrial fibrillation (H) Atrial fibrillation Ischemic cardiomyopathy Other specified forms of chronic ischemi c heart disease Persistent atrial fibrillation (H) Atrial fibrillation documented in this encounter Care Teams Mattress Finisher Relationship Specialty Start Date End Date [facility], Vinny Jaimes PCP - General 01/16/18 07/01/18 [address] [place] [phone] documented as of this encounter
--- OUTSIDE RECORDS SUMMARY | 2022-07-26 10:57 | XMS_ITS | Encounter Summary ---
:1940 Author Organization [place] Address [address] [facility] [place] [address] Care Team Providers Name Role Phone Graham Licona MD Primary Care Provider Reason for Visit Reason Onset Date Comments Prior Auth - Medication 05/10/2017 apixaban ANTICOA GULANT (ELIQUIS) 5 MG tablet - Tier Exception Appro chikis Encounter Details Date Type Department Care Team Description 05/10/2017 Telephone [facility] Timothy Smith MD Prior Auth - Medication [facility] [place] [address] (apixaban ANTICOAGULANT [address] (ELIQUIS) 5 MG tablet - [facility] [address] [place], [place] [address] Tier Exception Approved) [place] [phone] Social History Tobacco Use Types Packs/Day Years [...] Exception Approved Approved Dose/Quantity: Reference #: Insurance Circalit: [facility] [place] [phone] Expected CoPay: $1.00 patient p/u meds on 05/23/17 CoPay Card Available: Foundation Assistance Needed: Which Pharmacy is filling the prescription (Not needed for infusion/clinic administered): [facility] [address] [place], [place] - [address] [facility] Pharmacy Notified: Yes Patient Notified: Yes Telephone Encounter - Yareli Tamez - 05/28/2017 9:30 AM CDT Images from the original note were not included. Telephone Encounter - Yareli Tamez - 05/16/2017 11:28 AM CDT Images from the original note were not included. [facility] Prior Authorization Team Tier Exception Initiation Medication: apixaban ANTICOAGULANT (ELIQUIS) 5 MG tablet Insurance Company: [employer] - Pharmacy Filling the Rx: [facility] [address] [place] [phone] [facility] Filling Pharmacy Filling Pharmacy Fax: Start Date: 05/16/2017 documented in this encounter Plan of Treatment Upcoming Encounters Date Type Specialty Care Team Description 08/16/2022 Ancillary Procedure Cardiology Timothy Smith MD [address] [place] [address] (Wo rk) 08/16/2022 Office Visit Cardiology Timothy Smith MD [address] [place] [address] (Wo rk) documented as of this encounter Visit Diagnoses Not on filedocumented in this encounter Care Teams Auto Dealer Relationship Specialty Start Date End Date Graham Licona MD PCP - General Family Practice 04/13/17 01/15/18 [facility] [address] [place] [address] documented as of this encounter
--- OUTSIDE RECORDS SUMMARY | 2022-07-26 10:57 | XMS_ITS | Encounter Summary ---
:1940 Author Organization [place] Address [address] [facility] [place] [address] Care Team Providers Name Role Phone Graham Licona MD Primary Care Provider Reason for Visit Reason Comments Pacemaker Check remote alert for VHR Encounter Details Date Type Department Care Team Description 04/20/2017 Documentation Only [facility] Fabiola Hurtado aceilker Check Heart Clinic [place] Bui RN, RN (remote alert for [address] [facility] HEART VHR) South [address] [place] [address] [phone] [address] [place] [address] Social History Tobacco Use Types Packs/Day Years Used Date Smoking Tobacco: Never Alcohol Use Standard Drinks/Week Comments No 0 (1 standard drink = 0.6 oz pure alcoho l) Sex Assigned at Date Recorded Not on file documented as of this encounter Progress Notes Fabiola Hurtado, RN, RN - 04/20/2017 9:28 AM CDT [employer] PPM- Alert- NO CHARGE Another alert for [...] [address] [place] [phone] (Wo rk) 08/16/2022 Office Visit Cardiology Timothy Smith MD [address] [place] [address] (Wo rk) documented as of this encounter Visit Diagnoses Not on filedocumented in this encounter Care Teams Gunner'S Mate Relationship Specialty Start Date End Date Graham Licona MD PCP - General Family Practice 04/13/17 01/15/18 [facility] [address] [place] [address] documented as of this encounter
--- OUTSIDE RECORDS SUMMARY | 2022-07-26 10:57 | XMS_ITS | Encounter Summary ---
:1940 Author Organization [place] Address [facility] [place] [address] Care Team Providers Name Role Phone Graham Licona MD Primary Care Provider Reason for Visit Reason Comments Pacemaker Check PPM Latitude NXT Encounter Details Date Type Department Care Team Description 07/16/2017 Allied Health/Nurse [facility] Pac emaker Check (PPM Visit Heart [facility] [place] Latitude NXT) [address] [place] [address] [address] [place] [address] Social History Tobacco Use Types Packs/Day Years Used Date Smoking Tobacco: Never Alcohol Use Standard Drinks/Week Comments No 0 (1 standard drink = 0.6 oz pure alcoho l) Sex Assigned at Date Recorded Not on file documented as of this encounter Progress Notes Sary Riojas - 07/16/2017 9:00 AM CDT Dino Adan VALLES L121 (S) Remote PPM Device Check MANDOLIN REPAIRER: 8% Mode: VVIR Presenting Rhythm: Afib with [...] [address] [place] [address] (Wo rk) 08/16/2022 Office Visit Cardiology Timothy Smith MD [address] [place] [address] (Wo rk) documented as of this encounter Procedures Procedure Name Priority Date/Time Associated Diagnosis Comme nts ZZC PM DEVICE Routine 07/16/2017 1:42 PM Cardiac pacemaker in INTERROGATE REMOTE, UP CDT situ TO 90 DAYS, LEAD/LEADLESS HC INTERR DEVICE EVAL Routine 07/16/2017 Cardiac pacemaker i n REMOTE, PM/LDLS PM/ICD, situ UP TO 90 DAYS documented in this encounter Results INTERROGATION DEVICE EVAL REMOTE, PACER/ICD (49428) (07/16/2017) Narrative This result has an attachment that is no t available. Basil Guadalupe MD PROCEDURES documented in this encounter Visit Diagnoses Diagnosis Cardiac pacemaker in situ - Primary documented in this encounter Care Teams Dredge Pipeman Relationship Specialty Start Date End Date Graham Licona MD PCP - General Family Practice 04/13/17 01/15/18 [facility] [address] [place] [address] documented as of this encounter
--- OUTSIDE RECORDS SUMMARY | 2022-07-26 10:57 | XMS_ITS | Encounter Summary ---
:1940 Author Organization [place] Address [address] [facility] [place] [address] Care Team Providers Name Role Phone Graham Licona MD Primary Care Provider Reason for Visit Reason Onset Date Comments Patient Request 05/08/2017 echo Encounter Details Date Type Department Care Team Description 05/08/[address] [facility] Heart [place] P atient Request (echo) Clinic [place] [address] [facility] [address] [place] [phone] Social History [...] call, Discussed that having the echo at [place] is fine, but would request that echo [...] and ordered to have an echo in [place]. Pt wondering if we would want it done up here. Attempted to call pt back but phone on rang and did not go to voice message, willattempt to call later. JNelsonRN documented in this encounter Plan of Treatment Upcoming Encounters Date Type Specialty Care Team Description 08/16/2022 Ancillary Procedure Cardiology Timothy Smith MD [address] [place] [phone] (Wo rk) 08/16/2022 Office Visit Cardiology Timothy Smith MD [address] [place] [address] (Wo rk) documented as of this encounter Visit Diagnoses Not on filedocumented in this encounter Care Teams Associate Professor Relationship Specialty Start Date End Date Graham Licona MD PCP - General Family Practice 04/13/17 01/15/18 [facility] [address] [place] [address] documented as of this encounter
--- OUTSIDE RECORDS SUMMARY | 2022-07-26 10:57 | XMS_ITS | Encounter Summary ---
:1940 Author Organization [place] Address [address] [facility] [place] [address] Care Team Providers Name Role Phone Graham Licona MD Primary Care Provider Reason for Visit Reason Comments Samples eliquis 5mg Encounter Details Date Type Department Care Team Description 05/14/2017 Care Coordination [facility] Catherine Aranda Sa (eliquis [facility] [place] Crenshaw LPN 5mg) [address] [facility] [address] [place] [phone] Social [...] 08/16/2022 Ancillary Procedure Cardiology Timothy Smith MD [address] [facility] [address] [place] [address] (Wo rk) 08/16/2022 Office Visit Cardiology Timothy Smith MD [address] [place] [address] (Wo rk) documented as of this encounter Visit Diagnoses Not on filedocumented in this encounter Care Teams Administrative Services Manager Relationship Specialty Start Date End Date Graham Licona MD PCP - General Family Practice 04/13/17 01/15/18 [facility] [address] [place] [address] documented as of this encounter
--- OUTSIDE RECORDS SUMMARY | 2022-07-26 10:57 | XMS_ITS | Encounter Summary ---
:1940 Author Organization [place] Address [address] [facility] [place] [address] Care Team Providers Name Role Phone Graham Licona MD Primary Care Provider Encounter Details Date Type Department Care Team Description 11/14/2017 Documentation Only [facility] [place] [address] [facility] [address] [place] [address] Social History [...] in for annual check on 01/16. SPowellRN STAGE DEVELOPER documented in this encounter Plan of Treatment Upcoming Encounters Date Type Specialty Care Team Description 08/16/2022 Ancillary Procedure Cardiology Timothy Smith MD [address] [place] [address] (Wo rk) 08/16/2022 Office Visit Cardiology Timothy Smith MD [address] [place] [address] (Wo rk) documented as of this encounter Visit Diagnoses Not on filedocumented in this encounter Care Teams Explosives Engineer Relationship Specialty Start Date End Date Graham Licona MD PCP - General Family Practice 04/13/17 01/15/18 [facility] [address] [place] [address] documented as of this encounter
--- OUTSIDE RECORDS SUMMARY | 2022-07-26 10:57 | XMS_ITS | Encounter Summary ---
:1940 Author Organization [place] Address [address] [facility] [place] [address] Care Team Providers Name Role Phone Graham Licona MD Primary Care Provider Reason for Visit Reason Comments Pacemaker Check Alert for VHR Encounter Details Date Type Department Care Team Description 04/24/[address] [facility] Fabiola [facility]urtado [facility] Check Heart [facility] [place] Bui RN, RN (Alert for VHR) [address] [facility] HEART [address] [place] [address] [facility] [phone] [address] [place] [address] Social History Tobacco Use Types Packs/Day Years Used Date Smoking Tobacco: Never Alcohol Use Standard Drinks/Week Comments No 0 (1 standard drink = 0.6 oz pure alcoho l) Sex Assigned at Date Recorded Not on file documented as of this encounter Progress Notes Fabiola Hurtado RN, RN - 04/24/2017 7:44 AM CDT [facility] [employer] PPM ALERT Alert for VHR, [...] [address] [place] [address] (Wo rk) 08/16/2022 Office Visit Cardiology Timothy Smith MD [address] [place] [phone] (Wo rk) documented as of this encounter Visit Diagnoses Not on filedocumented in this encounter Care Teams Recycling Specialist Relationship Specialty Start Date End Date Graham Licona MD PCP - General Family Practice 04/13/17 01/15/18 [facility] [address] [place] [address] documented as of this encounter
--- OUTSIDE RECORDS SUMMARY | 2022-07-26 10:57 | XMS_ITS | Encounter Summary ---
:1940 Author Organization [place] Address [address] [place] [address] Care Team Providers Name Role Phone Graham Licona MD Primary Care Provider Reason for Visit Reason Comments Pacemaker Check annual threshold Encounter Details Date Type Department Care Team Description 04/13/2017 Allied Health/Nurse [facility] Pac emaker Check (annual Visit [facility] [place] threshold) [address] [facility] [address] [place] [phone] Social History Tobacco Use Types Packs/Day Years Used Date Smoking Tobacco: Never Alcohol Use Standard Drinks/Week Comments No 0 (1 standard drink = 0.6 oz pure alcoho l) Sex Assigned at Date Recorded Not on file documented as of this encounter Progress Notes Sammi Hill, SIENNA - 04/13/2017 9:45 AM CDT [employer] (D) Pacemaker Device Check AP: 1 % BUFFING AND POLISHING WHEEL REPAIRER: 15 % Mode: DDDR 60-130, changed to [...] [address] [place] [id number] (Wo rk) 08/16/2022 Office Visit Cardiology Timothy Smith MD [address] [place] [id number] (Wo rk) documented as of this encounter Procedures Procedure Name Priority Date/Time Associated Diagnosis Comme [facility] PM DEVICE PROGRAMMING Routine 04/13/2017 Cardiac pacemaker in situ EVAL, DUAL LEAD PACER Sinoatrial node dys function (H) documented in this encounter Results PM DEVICE PROGRAMMING EVAL, DUAL LEAD PACER (18919) (04/13/2017) Narrative This result has an attachment that is no t available. Basil Guadalupe MD PROCEDURES documented in this encounter Visit Diagnoses Diagnosis Cardiac pacemaker in situ - Primary Sinoatrial node dysfunction (H) Sinoatrial node dysfunction documented in this encounter Care Teams Diet Counselor Relationship Specialty Start Date End Date Graham Licona MD PCP - General Family Practice 04/13/17 01/15/18 [facility] [address] [place] [address] documented as of this encounter
--- OUTSIDE RECORDS SUMMARY | 2022-07-26 10:57 | XMS_ITS | Encounter Summary ---
:1940 Author Organization [place] Address [facility] [place] [address] Care Team Providers Name Role Phone Clinic, [facility] Primary Care Provider [phone] Reason for Referral CV Testing - Closed Specialty Diagnoses / Procedures Referred By Contact Refer red To Contact Cardiology Diagnoses SOB (shortness of breath) Timothy Smith MD Zzdomitila Cardiac Test [facility] Procedures Holter Monitor 24 hour - Adult [address] [address] [place] [address] [address] [place] [address] Phone: Fax: Referral ID Status Reason Start Date Expiration Date Visits Requ ested Visits Authorized [id number] Closed 01/17/2018 01/23/2019 1 1 Reason for Visit CV Testing - Closed Specialty Diagnoses / Procedures Referred By Contact Refer red To Contact Cardiology Diagnoses SOB (shortness of breath) Timothy Smith MD Zzrh Cardiac Test Rs Procedures Holter Monitor 24 hour - Adult [address] [address] [place] [address] [address] [place] [address] Phone: Fax: Referral ID Status Reason Start Date Expiration Date Visits Requ ested Visits Authorized [id number] Closed 01/17/2018 01/23/2019 1 1 Encounter Details Date Type Department Care Team Description 01/21/2018 Hospital Encounter [place] [facility] Timothy Smith MD SOB ([facility] [address] breath) [address] [facility] [address] [place] [address] [place]stein [phone] [address] (Work) [phone] Social History Tobacco Use Types Packs/Day Years [...] [address] [place] [address] (Wo rk) 08/16/2022 Office Visit Cardiology Timothy Smith MD [address] [place] [address] (Wo rk) documented as of this encounter Procedures Procedure Name Priority Date/Time Associated Diagnosis Comme nts HOLTER MONITOR 24 Routine 01/21/2018 10:09 AM SOB (shortness o f Results for this HOUR - ADULT CDT breath) procedure are i n the results section. documented in this encounter Results Holter Monitor 24 hour - Adult (01/21/2018 10:09 AM CDT) [facility] gist Method Time Signature Interpretation Click View RADIOLOGY Tax Investigator Image link RESULTS to view waveform and [...] breath documented in this encounter Care Teams Hazmat Technician Relationship Specialty Start Date End Date Clinic, [facility] PCP - General 01/16/18 07/01/18 [address] [place] [address] documented as of this encounter
--- OUTSIDE RECORDS SUMMARY | 2022-07-26 10:57 | XMS_ITS | Encounter Summary ---
:1940 Author Organization [place] Address [address] [facility] [place] [address] Care Team Providers Name Role Phone Graham Licona MD Primary Care Provider Reason for Visit Reason Comments Pacemaker Check alert for VHR Encounter Details Date Type Department Care Team Description 05/17/2017 Documentation Only [facility] Sergo Vega cemaker Check Heart Clinic Shilpi Lynne RN (alert for VHR) [address] [facility] [address] [place] [address] Social History Tobacco Use Types Packs/Day Years Used Date Smoking Tobacco: Never Alcohol Use Standard Drinks/Week Comments No 0 (1 standard drink = 0.6 oz pure alcoho l) Sex Assigned at Date Recorded Not on file documented as of this encounter Progress Notes Guera Vega RN - 05/17/2017 1:40 PM CDT [place] PPM. Alert for VHR. Tracings show AF/RVR. Will continue to monitor. Pt on OAC. SueLangenrikkiunnerRN documented in this encounter Plan of Treatment Upcoming Encounters Date Type Specialty Care Team Description 08/16/2022 Ancillary Procedure Cardiology Timothy Smith MD [address] [place] [phone] (Wo rk) 08/16/2022 Office Visit Cardiology Timothy Smith MD [address] [place] [address] (Wo rk) documented as of this encounter Visit Diagnoses Not on filedocumented in this encounter Care Teams Duralumin Mechanic Relationship Specialty Start Date End Date Graham Licona MD PCP - General Family Practice 04/13/17 01/15/18 [facility] [address] [place] [address] documented as of this encounter
--- OUTSIDE RECORDS SUMMARY | 2022-07-26 10:57 | XMS_ITS | Encounter Summary ---
:1940 Author Organization [place] Address [address] [facility] [place] [address] Care Team Providers Name Role Phone Graham Licona MD Primary Care Provider Reason for Visit Reason Comments Pacemaker Check Courtesy/Alert Encounter Details Date Type Department Care Team Description 04/19/2017 Allied Health/Nurse [facility] Pac emaker Check Visit Heart Clinic [place] (Courtesy/Alert) [address] [facility] [address] [place] [address] Social History Tobacco Use Types Packs/Day Years Used Date Smoking Tobacco: Never Alcohol Use Standard Drinks/Week Comments No 0 (1 standard drink = 0.6 oz pure alcoho l) Sex Assigned at Date Recorded Not on file documented as of this encounter Progress Notes Quang Montalvo, RN - 04/19/2017 4:30 PM CDT [employer] PPM Courtesy/ No Charge Alert received for VT episodes. EGMs reviewed showing AF with RVR between 21 seconds and 1 minute and 13 seconds. Patient has know AF. Will continue to monitor. YRadha documented in this encounter Plan of Treatment Upcoming Encounters Date Type Specialty Care Team Description 08/16/2022 Ancillary Procedure Cardiology Timothy Smith MD [address] [facility] [address] [place] [address] (Wo rk) 08/16/2022 Office Visit Cardiology Timothy Smith MD [address] [place] [phone] (Wo rk) documented as of this encounter Visit Diagnoses Diagnosis Cardiac pacemaker in situ - Primary documented in this encounter Care Teams Blast Furnace Helper Relationship Specialty Start Date End Date Graham Licona MD PCP - General Family Practice 04/13/17 01/15/18 [facility] [address] [place] [address] documented as of this encounter
--- OUTSIDE RECORDS SUMMARY | 2022-07-26 10:57 | XMS_ITS | Encounter Summary ---
:1940 Author Organization [place] Address [facility] [place] [address] Care Team Providers Name Role Phone Graham Licona MD Primary Care Provider Reason for Visit Reason Onset Date Comments Refill Request 05/23/2017 pt was granted tier acception for eliquis Encounter Details Date Type Department Care Team Description 05/23/2017 Refill [facility] Heart Zarina Smith MD Refill Request (pt was [facility] [place] [address] granted tier acception [address] [facility] [address] for eliquis) [address] [place] [address] [place] [phone] [phone] Social History Tobacco Use Types Packs/Day Years Used Date Smoking Tobacco: Never Alcohol Use Standard Drinks/Week Comments No 0 (1 standard drink = 0.6 oz pure alcoho l) Sex Assigned at Date Recorded Not on file documented as of this encounter Plan of Treatment Upcoming Encounters Date Type Specialty Care Team Description 08/16/2022 Ancillary Procedure Cardiology Timothy Smith MD [address] [place] [id number] (Wo rk) 08/16/2022 Office Visit Cardiology Timothy Smith MD [address] [place] [phone] (Wo rk) documented as of this encounter Visit Diagnoses Diagnosis Paroxysmal atrial fibrillation (H) Atrial fibrillation documented in this encounter Care Teams Soft Mud Molder Relationship Specialty Start Date End Date Graham Licona MD PCP - General Family Practice 04/13/17 01/15/18 [facility] [address] [place] [address] documented as of this encounter
--- OUTSIDE RECORDS SUMMARY | 2022-07-26 10:57 | XMS_ITS | Encounter Summary ---
:1940 Author Organization [place] Address [address] [facility] [address] Care Team Providers Name Role Phone Graham Licona MD Primary Care Provider Reason for Visit Reason Onset Date Comments Pacemaker Check 04/25/2017 Remote alert for VHR Encounter Details Date Type Department Care Team Description 04/25/2017 Telephone [facility] Heart Fabiola Hurtado acemaker Check (Remote Clinic [place] Bui, RN, RN alert for VHR) [address] [facility] HEART [address] [place] [address] [address] [facility] [phone] [address] [place] [address] Social History Tobacco Use Types Packs/Day Years Used Date Smoking Tobacco: Never Alcohol Use Standard Drinks/Week Comments No 0 (1 standard drink = 0.6 oz pure alcoho l) Sex Assigned at Date Recorded Not on file documented as of this encounter Miscellaneous Notes Telephone Encounter - Fabiola Hurtado, RN, RN - 04/25/2017 5:09 PM CDT [employer] PPM Alert Received alert for another [...] [address] [place] [address] (Wo rk) 08/16/2022 Office Visit Cardiology Timothy Smith MD [address] [place] [address] (Wo rk) documented as of this encounter Visit Diagnoses Not on filedocumented in this encounter Care Teams Medical Assembler Relationship Specialty Start Date End Date Graham Licona MD PCP - General Family Practice 04/13/17 01/15/18 [facility] [address] [place] [address] documented as of this encounter
--- OUTSIDE RECORDS SUMMARY | 2022-07-26 10:57 | XMS_ITS | Encounter Summary ---
:1940 Author Organization [place] Address [facility] [place] [address] Care Team Providers Name Role Phone Graham Licona MD Primary Care Provider Reason for Visit Reason Onset Date Comments Refill Request 10/08/2017 dose of metoprolol i ncreased to 100mg daily, succinate Encounter Details Date Type Department Care Team Description 10/08/2017 Refill [facility] Heart Zarina Smith MD Refill Request (dose of [facility] [place] [address] metoprolol increased to [address] 100mg daily, succinate) [address] [place] [address] [place] [phone] [phone] Social History Tobacco Use Types Packs/Day Years [...] [address] [place] [phone] (Wo rk) 08/16/2022 Office Visit Cardiology Timothy Smith MD [address] [place] [address]335 (Wo rk) documented as of this encounter Visit Diagnoses Diagnosis Palpitations - Primary documented in this encounter Care Teams Vice President Risk Management Relationship Specialty Start Date End Date Graham Licona MD PCP - General Family Practice 04/13/17 01/15/18 [facility] [address] [place] [address] documented as of this encounter
--- OUTSIDE RECORDS SUMMARY | 2022-07-26 10:57 | XMS_ITS | Encounter Summary ---
:1940 Author Organization [place] Address [facility] [place] [address] Care Team Providers Name Role Phone Clinic, [facility] Primary Care Provider [phone] Encounter Details Date Type Department Care Team Description 01/23/2018 Orders Only [facility] Heart SOB (shortness of breath) Clinic [facility] [address] [facility] [address] [place] , [place] [address] Social History Tobacco Use Types Packs/Day Years [...] [address] [place] [address] (Wo rk) 08/16/2022 Office Visit Cardiology Timothy Smith MD [address] [place] [address] (Wo rk) documented as of this encounter [...] [facility] mmol/L 10:46 AM CDT [facility] Potassium 4.4 3.5 - 5.1 01/23/2018 [facility] mmol/L 10:46 AM CDT [facility] Chloride 101 98 - 107 01/23/2018 [facility] mmol/L 10:46 AM CDT [facility] Carbon Dioxide 29 23 - 29 01/23/2018 [facility] mmol/L 10:46 AM CDT [facility] Anion Gap 15.4 6 - 17 01/23/2018 [facility] mmol/L 10:46 AM T [facility] A Glucose 152 (H) 70 - 105 01/23/2018 [facility] mg/dL 10:46 AM T [facility] Urea Nitrogen 27 7 - 30 01/23/2018 [facility] mg/dL 10:46 AM T [facility] Creatinine 1.27 0.70 - 01/23/2018 [facility] 1.30 mg/dL 10:46 AM CDT [facility] GFR Estimate 55 (L) >60 01/23/2018 [facility] mL/min/1.7 10:46 AM CDT [facility] m2 A GFR Estimate If 66 >60 01/23/2018 [facility] Black mL/min/1.7 10:46 AM T [facility] m2 A Calcium 10.1 8.5 - 10.5 01/23/2018 [facility] mg/dL 10:46 AM T [facility] Specimen Anatomical Collection Method Collection Time Receive d Time (Source) Location / / Volume Laterality Blood specimen 01/23/2018 9:50 AM 018 9:51 (specimen) CDT AM CDT Timothy Smith MD LAB - BLOOD ORDERABLES Performing Organization Address City/State/ZIP Code Phon e Number [facility] [address] [place] [address] [address] documented in this encounter Visit Diagnoses Diagnosis SOB (shortness of breath) Shortness of breath documented in this encounter Care Teams Family Services Specialist Relationship Specialty Start Date End Date Clinic, Vinny Jaimes PCP - General 01/16/18 07/01/18 [address] [place] [address] documented as of this encounter
--- OUTSIDE RECORDS SUMMARY | 2022-07-26 10:57 | XMS_ITS | Encounter Summary ---
:1940 Author Organization [place] Address formerly [facility] [place] [address] Care Team Providers Name Role Phone Graham Licona MD Primary Care Provider Reason for Visit Reason Comments Pacemaker Check PPM Latitude NXT Encounter Details Date Type Department Care Team Description 10/22/2017 Allied Health/Nurse [facility] Pac emaker Check (PPM Visit Heart Clinic [place] Latitude NXT) [address] [place] [address] [address] [place] [address] Social History Tobacco Use Types Packs/Day Years Used Date Smoking Tobacco: Never Alcohol Use Standard Drinks/Week Comments No 0 (1 standard drink = 0.6 oz pure alcoho l) Sex Assigned at Date Recorded Not on file documented as of this encounter Progress Notes Sary Riojas - 10/22/2017 3:30 PM CST [place] Jaret VALLES L121 (S) Remote PPM Device Check POLICE DISPATCHER: 11% Mode: VVIR Presenting Rhythm: POLICE DISPATCHER Heart Rate: historgram shows heart rates 60 [...] answer, left message with results. KOlson CVT ENT CARE ASSISTANT documented in this encounter Plan of Treatment Upcoming Encounters Date Type Specialty Care Team Description 08/16/2022 Ancillary Procedure Cardiology Timothy Smith MD [address] [place] [address] (Wo rk) 08/16/2022 Office Visit Cardiology Timothy Smith MD [address] [place] [address] (Wo rk) documented as of this encounter Procedures Procedure Name Priority Date/Time Associated Diagnosis Comme [facility] Z PM DEVICE Routine 10/22/2017 8:41 AM Cardiac pacemaker in INTERROGATE REMOTE, UP PATIENT CARE ASSISTANT situ TO 90 DAYS, LEAD/LEADLESS HC INTERR DEVICE EVAL Routine 10/22/2017 Cardiac pacemaker i n REMOTE, PM/LDLS PM/ICD, situ UP TO 90 DAYS documented in this encounter Results INTERROGATION DEVICE EVAL REMOTE, PACER/ICD (99651) (10/22/2017) Narrative This result has an attachment that is no t available. Basil Guadalupe MD PROCEDURES documented in this encounter Visit Diagnoses Diagnosis Cardiac pacemaker in situ - Primary documented in this encounter Care Teams Doctor Podiatric Medicine Relationship Specialty Start Date End Date Graham Licona MD PCP - General Family Practice 04/13/17 01/15/18 [facility] [address] [place] [address] documented as of this encounter
--- OUTSIDE RECORDS SUMMARY | 2022-07-26 10:57 | XMS_ITS | Encounter Summary ---
:1940 Author Organization [place] Address [address] [facility] [place] [address] Care Team Providers Name Role Phone Graham Licona MD Primary Care Provider Reason for Visit Reason Comments Pacemaker Check Clinic Care Coordination - Follow-up Encounter Details Date Type Department Care Team Description 08/13/2017 Documentation Only [facility] Sergo Vega Check; Heart Clinic [place] Lynne RN Clinic Care [address] [place] [address] [address] [place] [address] Social History Tobacco [...] questions he can call the clinic. Abe COMPLIANCE OFFICER documented in this encounter Plan of Treatment Upcoming Encounters Date Type Specialty Care Team Description 08/16/2022 Ancillary Procedure Cardiology Timothy Smith MD [address] [place] [address] (Wo rk) 08/16/2022 Office Visit Cardiology Timothy Smith MD [address] [place] [address] (Wo rk) documented as of this encounter Visit Diagnoses Not on filedocumented in this encounter Care Teams Sparmaker Relationship Specialty Start Date End Date Graham Licona MD PCP - General Family Practice 04/13/17 01/15/18 [facility] [address] [place] [address] documented as of this encounter
--- OUTSIDE RECORDS SUMMARY | 2022-07-26 10:57 | XMS_ITS | Encounter Summary ---
:1940 Author Organization [place] Address [facility] [place] [address] Care Team Providers Name Role Phone Clinic, [facility] Primary Care Provider [phone] Reason for Referral - Closed Specialty Diagnoses / Procedures Referred By Contact Refer red To Contact Diagnoses Atrial fibrillation (H) [facility] [address] [facility] [address] [place] [address] Referral ID Status Reason Start Date Expiration Date Visits Requ ested Visits Authorized [id number] Closed 04/25/2018 04/25/2019 1 1 Reason for Visit Reason Onset Date Comments Clinic Care Coordination - Follow-up 01/24/2018 Encounter Details Date Type Department Care Team Description 01/24/2018 Telephone [facility] Aravind Fierro [facility] Heart Clinic [place] Vital RN Coordination - [address] [facility] Follow-up [facility] [address] [place] [address] Social History Tobacco Use Types Packs/Day [...] [address] [place] [address] (Fiorella olvera) 08/16/2022 Office Visit Cardiology Timothy Smith MD [address] [place] [address] (Fiorella olvera) Scheduled Referrals Name Type Priority Associated Diagnoses Order S chedule Follow-Up with Referral Routine Atrial fibrillation Expect ed: Medical Insurance Claims Processor (H) 04/25/20 18 (Approximate), Expires: 01/24/2020 documented as of this encounter Visit Diagnoses Diagnosis Atrial fibrillation (H) - Primary Atrial fibrillation documented in this encounter Care Teams Director Of Home Care Hospice Relationship Specialty Start Date End Date Clinic, [facility] PCP - General 01/16/18 07/01/18 [address] [place] [address] documented as of this encounter
--- OUTSIDE RECORDS SUMMARY | 2022-07-26 10:57 | XMS_ITS | Encounter Summary ---
:1940 Author Organization [place] Address [facility] [place] [address] Care Team Providers Name Role Phone Graham Licona MD Primary Care Provider Reason for Visit Reason Onset Date Comments Refill Request 05/25/2017 eliquis Encounter Details Date Type Department Care Team Description 05/25/2017 Refill [facility] Heart Zarina Smith MD Refill Request (eliquis) Clinic [place] [address] [place] [id number] [address] [place] [address] [place] [phone] [phone] Social History Tobacco Use Types Packs/Day Years [...] [address] [place] [phone] (Wo rk) 08/16/2022 Office Visit Cardiology Timothy Smith MD [address] [place] [address] (Wo rk) documented as of this encounter Visit Diagnoses Diagnosis Paroxysmal atrial fibrillation (H) Atrial fibrillation documented in this encounter Care Teams District Customs Director Relationship Specialty Start Date End Date Graham Licona MD PCP - General Family Practice 04/13/17 01/15/18 [facility] [address] [place] [address] documented as of this encounter
--- OUTSIDE RECORDS SUMMARY | 2022-07-26 10:57 | XMS_ITS | Encounter Summary ---
:1940 Author Organization [place] Address [facility] [place] [address] Care Team Providers Name Role Phone Clinic, [facility] Primary Care Provider [phone] Reason for Visit Reason Comments Pacemaker Check PPM Latitude NXT Encounter Details Date Type Department Care Team Description 04/24/2018 Allied Health/Nurse [facility] Pac emaker Check (PPM Visit Heart Clinic [place] Latitude NXT) [address] [place] [address] [address] [place] [address] Social History Tobacco Use Types Packs/Day Years Used Date Smoking Tobacco: Never Smokeless Tobacco: Never Alcohol Use Standard Drinks/Week Comments No 0 (1 standard drink = 0.6 oz pure alcoho l) Sex Assigned at Date Recorded Not on file documented as of this encounter Progress Notes Sary Riojas - 04/24/2018 3:30 PM CDT [employer] EL L121 (S) Remote PPM Device Check CHARGER TESTER: 26% Mode: VVIR Presenting Rhythm: CHARGER TESTER & VS Heart Rate: vent rates 60 [...] [address] [place] [address] (Wo rk) 08/16/2022 Office Visit Cardiology Timothy Smith MD [address] [place] [address] (Wo rk) documented as of this encounter Procedures Procedure Name Priority Date/Time Associated Diagnosis Comme [facility] Z PM DEVICE Routine 04/24/2018 9:24 AM Cardiac pacemaker in INTERROGATE REMOTE, UP CDT situ TO 90 DAYS, LEAD/LEADLESS HC INTERR DEVICE EVAL Routine 04/24/2018 Cardiac pacemaker i n REMOTE, PM/LDLS PM/ICD, situ UP TO 90 DAYS documented in this encounter Results INTERROGATION DEVICE EVAL REMOTE, PACER/ICD (76501) (04/24/2018) Narrative This result has an attachment that is no t available. Basil Guadalupe MD PROCEDURES documented in this encounter Visit Diagnoses Diagnosis Cardiac pacemaker in situ - Primary documented in this encounter Care Teams Salt Machine Operator Relationship Specialty Start Date End Date [facility] PCP - General 01/16/18 07/01/18 [address] [place] [address] documented as of this encounter
--- OUTSIDE RECORDS SUMMARY | 2022-07-26 10:57 | XMS_ITS | Encounter Summary ---
:1940 Author Organization [place] Address [facility] [place] [address] Care Team Providers Name Role Phone Clinic, [facility] Primary Care Provider [phone] Reason for Visit Reason Comments Pacemaker Check Annual Threshold Check Encounter Details Date Type Department Care Team Description 01/16/2018 Allied Health/Nurse [facility] Pac emaker Check (Annual Visit Heart Clinic [place] Threshold Check) [address] [place] [address] [address] [place] [phone] Social History Tobacco Use Types Packs/Day Years Used Date Smoking Tobacco: Never Smokeless Tobacco: Never Alcohol Use Standard Drinks/Week Comments No 0 (1 standard drink = 0.6 oz pure alcoho l) Sex Assigned at Date Recorded Not on file documented as of this encounter Progress Notes Lula Pa RN - 01/16/2018 11:00 AM CDT [employer] Essentio EL L121 Pacemaker Device Check AP: o % INJECTION MOLDING PROCESS TECHNICIAN: 14 % Mode: VVIR 60-130 bpm Underlying [...] Procedure Cardiology Timothy Smith MD [address] [place] [address] (Wo rk) 08/16/2022 Office Visit Cardiology Timothy Smith MD [address] [place] [address] (Wo rk) documented as of this encounter Procedures Procedure Name Priority Date/Time Associated Diagnosis Comme nts HC PM DEVICE PROGRAMMING EVAL, Routine 01/16/2018 Cardiac pa cemaker in situ DUAL LEAD PACER documented in this encounter Results PM DEVICE PROGRAMMING EVAL, DUAL LEAD PACER ([id number]) (01/16/2018) Narrative This result has an attachment that is no t available. Timothy Smith MD PROCEDURES documented in this encounter Visit Diagnoses Diagnosis Cardiac pacemaker in situ - Primary documented in this encounter Care Teams Endoscopy Tech Relationship Specialty Start Date End Date Clinic, Vinny Jaimes PCP - General 01/16/18 07/01/18 [address] [place] [address] documented as of this encounter
--- OUTSIDE RECORDS SUMMARY | 2022-07-26 10:57 | XMS_ITS | Encounter Summary ---
:1940 Author Organization [place] Address [address] 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 Chu EL Telephone Encounter - Lacy Washington RN - 01/04/2018 1:58 PM CDT Pt LM requesting samples of Eliquis, as he will run out before his medications come in the mail. 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 Jing documented in this encounter Plan of Treatment Upcoming Encounters Date Type Specialty Care Team Description 08/16/2022 Ancillary Procedure Cardiology Timothy Smith MD [address] [place] [address] (Wo rk) 08/16/2022 Office Visit Cardiology Timothy Smith MD [address] [place] [address] (Wo rk) documented as of this encounter Visit Diagnoses Not on filedocumented in this encounter Care Teams Telepathist Relationship Specialty Start Date End Date Graham Licona MD PCP - General Family Practice 04/13/17 01/15/18 [facility] [address] [place] [address] documented as of this encounter
--- OUTSIDE RECORDS SUMMARY | 2022-07-26 10:58 | XMS_ITS | Encounter Summary ---
:1940 Author Organization [place] Address [address] [facility] [place] [address] Care Team Providers Name Role Phone Nas Cardenas MD Primary Care Provider Reason for Visit Reason Comments Heart Problem 6 week follow up - Closed Specialty Diagnoses / Procedures Referred By Contact Refer red To Contact Diagnoses SSS (sick sinus syndrome) (H) Typical atrial flutter (H) [facility] [id number] [place] [phone] Referral ID Status Reason Start Date Expiration Date Visits Requ ested Visits Authorized [id number] Closed 04/11/2016 04/11/2017 1 1 Encounter Details Date Type Department Care Team Description 05/15/[address] [facility] Ankur Smith MD SSS (sick sinus syndrome) (H); [facility] [place] [address] [facility] Typical atrial flutter (H) [id number] [place] [address] [place] [address] Social History Tobacco Use [...] CDT May 15, 2016 Nas Cardenas MD [facility] [id number] [place], [place] [id number] RE: Radha Villa : [address] [...] episodes of sinus asystole. He received a [employer] dual-chamber pacemaker implantation during the same hospitalization because he reported history of recurrent near-syncope prior to the admission. Since the pacemaker implantation, he has not had any recurrent syncope. He did undergo coronary angiography that showed patent grafts, although his [place] vessels were occluded. At the present time, [...] KALPESH Name: RADHA VILLA MRN: [id number] Account: [id number] : 1940 Service Date: 05/15/2016 Document: [id number] Ankur Smith MD - 05/15/2016 1:29 PM [...] 08/16/2022 Ancillary Procedure Cardiology Ankur Smith MD [address] [place] [phone] (Fiorella olvera) 08/16/2022 Office Visit Cardiology Ankur Smith MD [address] [place] [address] (Wo rk) documented as of this encounter Visit Diagnoses Diagnosis SSS (sick sinus syndrome) (H) Sinoatrial node dysfunction Typical atrial flutter (H) Atrial flutter documented in this encounter Care Teams Head Waitress Relationship Specialty Start Date End Date Nas Cardenas MD PCP - General Family Practice 02/01/12 04/12/17 documented as of this encounter
--- OUTSIDE RECORDS SUMMARY | 2022-07-26 10:58 | XMS_ITS | Encounter Summary ---
:1940 Author Organization [place] Address [address] [facility] [place] [address] Care Team Providers Name Role Phone Nas Cardenas MD Primary Care Provider Reason for Referral - Closed Specialty Diagnoses / Procedures Referred By Contact Refer red To Contact Diagnoses SSS (sick sinus syndrome) (H) Typical atrial flutter (H) [facility] [address] [facility] [address] [place] [phone] Referral ID Status Reason Start Date Expiration Date Visits Requ ested Visits Authorized [id number] Closed 04/11/2016 04/11/2017 1 1 Reason for Visit Reason Comments Pacemaker Check 6 weeks S/P PPM implant Encounter Details Date Type Department Care Team Description 03/28/2016 Allied Health/Nurse [facility] Pac emaker Check (6 Visit Heart Clinic [place] weeks S/P PPM implant) [address] [facility] [address] [place] [phone] Social History Tobacco Use Types Packs/Day Years Used Date Smoking Tobacco: Never Alcohol Use Standard Drinks/Week Comments No 0 (1 standard drink = 0.6 oz pure alcoho l) Sex Assigned at Date Recorded Not on file documented as of this encounter Progress Notes Fabiola Hurtado RN, RN - 03/28/2016 12:56 PM CDT [employer] Essent[employer] (D) Pacemaker Device Check 6 wks S/P implant AP:2 % WEB SERVICES MANAGER: 10 % Mode: DDDR 60/130 Underlying Rhythm: A flutter at time of interrogation (mostly 2:1) with v- rate zb34-610 BPM Heart Rate: Evidence on histogram of [...] [address] [place] [phone] (Fiorella olvrea) 08/16/2022 Office Visit Cardiology Timothy Smith MD [address] [place] [phone] (Fiorella olvera) Scheduled Referrals Name Type Priority Associated Diagnoses Order S chedule Follow-Up with Referral Routine SSS (sick sinus Expected: Asian Studies Professor syndrome) (H ) 04/11/2016 Typical atrial (Approximate) , flutter (H) Expires: 03/28/2017 documented as of this encounter Procedures Procedure Name Priority Date/Time Associated Diagnosis Comme nts HC PM DEVICE PROGRAMMING Routine 03/28/2016 Cardiac pacemaker in situ EVAL, DUAL LEAD PACER SSS (sick sinus syn drome) (H) documented in this encounter Results Holter Monitor 24 hour - Adult (04/18/2016) Narrative RADIANT - 04/18/2016 [facility] [address] [facility] [address] [facility] [address] 04/13/2016 Patient: ??Haris Covington Chart: [id number] : ??1940 Age: ??75 year old Sex: ??male Procedure: ??Holter Monitor Placed: plea se see scanned document for result once interpretation is comple star. Carpet Technician performing hook-up: ??Sheri Yuen Timothy Smith MD CV CARDIAC SERVICES ORDERABL ES Performing Organization Address City/State/ZIP Code Phon e Number RADIANT PM DEVICE PROGRAMMING EVAL, DUAL LEAD PACER ([id number]) (03/28/2016) Narrative This result has an attachment that is no t available. Steven Canchola MD PROCEDURES documented in this encounter Visit Diagnoses Diagnosis Cardiac pacemaker in situ - Primary SSS (sick sinus syndrome) (H) Sinoatrial node dysfunction Typical atrial flutter (H) Atrial flutter SSS (sick sinus syndrome) (H) Sinoatrial node dysfunction Typical atrial flutter (H) Atrial flutter documented in this encounter Care Teams Executive Vice President Relationship Specialty Start Date End Date Nas Cardenas MD PCP - General Family Practice 02/01/12 04/12/17 documented as of this encounter
--- OUTSIDE RECORDS SUMMARY | 2022-07-26 10:58 | XMS_ITS | Encounter Summary ---
:1940 Author Organization [place] Address [facility] [place] [address] Care Team Providers Name Role Phone Nas Cardenas MD Primary Care Provider Reason for Visit Reason Comments Pacemaker Check PPM Latitude NXT Encounter Details Date Type Department Care Team Description 06/28/2016 Allied Health/Nurse [facility] Pac emaker Check (PPM Visit Heart Clinic [place] Latitude NXT) [address] [place] [address] [address] [place] [phone] Social History Tobacco [...] NXT Remote PPM Device Check AP: 2% CLINICAL RESEARCH MANAGEMENT ASSOCIATE: 14% Mode: DDDR Underlying Rhythm: Aflutter with [...] MD [address] [place] [address] (Wo rk) 08/16/2022 Office Visit Cardiology Timothy Smith MD [address] [place] [address] (Wo rk) documented as of this encounter Procedures Procedure Name Priority Date/Time Associated Diagnosis Comme nts ZC PM DEVICE Routine 06/28/2016 9:13 AM Cardiac pacemaker in INTERROGATE REMOTE, UP CDT situ TO 90 DAYS, LEAD/LEADLESS HC INTERR DEVICE EVAL Routine 06/28/2016 Cardiac pacemaker i n REMOTE, PM/LDLS PM/ICD, situ UP TO 90 DAYS documented in this encounter Results INTERROGATION DEVICE EVAL REMOTE, PACER/ICD (14824) (06/28/2016) Narrative This result has an attachment that is no t available. Basil Guadalupe MD PROCEDURES documented in this encounter Visit Diagnoses Diagnosis Cardiac pacemaker in situ - Primary documented in this encounter Care Teams Inspector Multifocal Lens Relationship Specialty Start Date End Date Nas Cardenas MD PCP - General Family Practice 02/01/12 documented as of this encounter
--- OUTSIDE RECORDS SUMMARY | 2022-07-26 10:58 | XMS_ITS | Encounter Summary ---
:1940 Author Organization [place] Address [address] [place] [address] Care Team Providers Name Role Phone Nas Cardenas MD Primary Care Provider Reason for Visit Reason Onset Date Comments Other 04/06/2016 left messge stating he was not going to start warfarin Encounter Details Date Type Department Care Team Description 04/06/2016 Telephone [facility] Heart Fabiola Hurtado (left messge Clinic [place] Bui, RN, RN stating he was not [address] [facility] HEART going to start [facility] [address] CLINIC warfarin) [place] [phone] [address] [facility] [address] [phone] [address] [place] [id number] Social History Tobacco Use Types Packs/Day Years [...] MD [address] [place] [address] (Wo rk) 08/16/2022 Office Visit Cardiology Timothy Smith MD [address] [place] [address] (Wo rk) documented as of this encounter Visit Diagnoses Not on filedocumented in this encounter Care Teams Barrel Scraper Relationship Specialty Start Date End Date Nas Cardenas MD PCP - General Family Practice 02/01/12 04/12/17 documented as of this encounter
--- OUTSIDE RECORDS SUMMARY | 2022-07-26 10:58 | XMS_ITS | Encounter Summary ---
:1940 Author Organization [place] Address [address] [facility] [place] [address] Care Team Providers Name Role Phone Nas Cardenas MD Primary Care Provider Reason for Referral - Closed Specialty Diagnoses / Procedures Referred By Contact Refer red To Contact Diagnoses Sinoatrial node dysfunction (H) Tammy Montenegro PA-C [address] [place] [address] Referral ID Status Reason Start Date Expiration Date Visits Requ ested Visits Authorized [id number] Closed 12/04/2016 12/04/2017 1 1 Reason for Visit Reason Comments Heart Problem CAD Irregular Heart Beat s/p PPM - Closed Specialty Diagnoses / Procedures Referred By Contact Refer red To Contact Diagnoses Sinoatrial node dysfunction (H) Timothy Smith MD [address] [place] [address] Referral ID Status Reason Start Date Expiration Date Visits Requ ested Visits Authorized [id number] Closed 03/06/2016 03/06/2017 1 1 Encounter Details Date Type Department Care Team Description 03/09/2016 Office Visit [facility] Timothy Smith MD [address] [place] [address] Cardiac pacemaker in situ (Primary Dx); Heart Clinic Tammy Carver PA-C [address] [place] [address] Sinoatrial node dysfunction (H); [address] [facility] Benign es sential hypertension; [address] Typical atrial flutter (H) [place] [phone] Social History Tobacco Use Types Packs/Day Years [...] on Sunday 6.28 @ 1 PM in [place] - call [phone] if you need to reschedule 2. Reviewed your angiogram/heart catheterization done in the hospital showing all of your bypasses still look great! 3. Continue to monitor for any lightheadedness or chest discomfort. 4. See Dr. Smith in 11/2016 but call earlier if need to be seen or any questions! My nurse is ZEINAB: [phone] documented in this encounter Progress Notes Tammy [...] blood pressure control. Unfortunately, he presented to [facility] on 02/01 and complained about chest fullness and increasing shortness of breath. His troponin was elevated and therefore, he was admitted [facility]. He underwent coronary angiography which showed an occluded lumbee RCA, but vein grafts were all patent [...] versus pacemaker implantation. Ultimately, he underwent dual-chamber [employer] pacemaker placement on 02/04/2016. Interestingly, he [...] Asystole. He is now status post dual-chamber [employer] pacemaker implantation. His first device check [...] KALPESH Name: RADHA VILLA MRN: [id number] Account: [id number] : 1940 Service Date: 03/09/2016 Document: [id number] Tammy Montenegro PA-C - 03/09/2016 9:13 AM CDT HPI and Plan: See dictation #[id number] Orders Placed This Encounter Procedures ??? Follow-Up with Linoleum Tile Layer ??? EKG 12-lead complete w/read - Clinics [...] person and place CC Nas Cardenas MD [facility] [address] [place] [address] documented in this encounter Plan of Treatment Upcoming Encounters Date Type Specialty Care Team Description 08/16/2022 Ancillary Procedure Cardiology Timothy Smith MD [address] [place] [address] (Wo rk) 08/16/2022 Office Visit Cardiology Timothy Smith MD [address] [place] [address] (Wo rk) Scheduled Referrals Name Type Priority Associated Diagnoses Order S chedule Follow-Up with Referral Routine Sinoatrial node Expected: Linoleum Tile Layer dysfunction (H) 12/04 (Approximate), Expires: 03/09/2017 documented as of this encounter Visit Diagnoses Diagnosis Cardiac pacemaker in situ - Primary Sinoatrial node dysfunction (H) Sinoatrial node dysfunction Benign essential hypertension Essential hypertension, benign Typical atrial flutter (H) Atrial flutter documented in this encounter Care Teams Professor Of Surgery Relationship Specialty Start Date End Date Nas Cardenas MD PCP - General Family Practice 02/01/12 04/12/17 documented as of this encounter
--- OUTSIDE RECORDS SUMMARY | 2022-07-26 10:58 | XMS_ITS | Encounter Summary ---
:1940 Author Organization [place] Address [address] [place] [address] Care Team Providers Name Role Phone Nas Cardenas MD Primary Care Provider Reason for Visit Reason Onset Date Comments Results 01/15/2017 Holter Encounter Details Date Type Department Care Team Description 01/15/2017 Telephone [facility] Heart Fabiola Hurtado, Results (Holter) Clinic [place] RN, RN [address] [facility] HEART [address] [place] [address] [address] [facility] [phone] [place] [address] (Wo rk) Social History Tobacco Use [...] [address] [place] [address] (Wo rk) 08/16/2022 Office Visit Cardiology Timothy Smith MD [address] [place] [address] (Wo rk) documented as of this encounter Visit Diagnoses Not on filedocumented in this encounter Care Teams Sail Finisher Machine Relationship Specialty Start Date End Date Nas Cardenas MD PCP - General Family Practice 02/01/12 04/12/17 documented as of this encounter
--- OUTSIDE RECORDS SUMMARY | 2022-07-26 10:58 | XMS_ITS | Encounter Summary ---
:1940 Author Organization [place] Address [address] [facility] [place] [address] Care Team Providers Name Role Phone Nas Cardenas MD Primary Care Provider Reason for Visit Reason Comments Pacemaker Check COurtesy Encounter Details Date Type Department Care Team Description 03/19/2017 Allied Health/Nurse [facility] Pac emaker Check Visit Heart Clinic [facility] (COurtesy) [address] [facility] [address] [place] [address] Social History Tobacco Use Types Packs/Day Years Used Date Smoking Tobacco: Never Alcohol Use Standard Drinks/Week Comments No 0 (1 standard drink = 0.6 oz pure alcoho l) Sex Assigned at Date Recorded Not on file documented as of this encounter Progress Notes Quang Montalvo RN - 03/19/2017 4:30 PM CDT [employer] PPM Courtesy-No Charge Alert received for VT episode. EGM suggest PAT. Patient also had several NSVT episodes; EGMs also suggest PAT Lead measurements are stable. Will continue to monitor. YJagdeepgRN. documented in this encounter Plan of Treatment Upcoming Encounters Date Type Specialty Care Team Description 08/16/2022 Ancillary Procedure Cardiology Timothy Smith MD [address] [facility] [address] [place] [phone] (Wo rk) 08/16/2022 Office Visit Cardiology Timothy Smith MD [address] [place] [address] (Wo rk) documented as of this encounter Visit Diagnoses Diagnosis Cardiac pacemaker in situ - Primary documented in this encounter Care Teams Pruner Relationship Specialty Start Date End Date Nas Cardenas MD PCP - General Family Practice 02/01/12 04/12/17 documented as of this encounter
--- OUTSIDE RECORDS SUMMARY | 2022-07-26 10:58 | XMS_ITS | Encounter Summary ---
:1940 Author Organization [place] Address [address] [facility] [place] [address] Care Team Providers Name Role Phone Nas Cardenas MD Primary Care Provider Reason for Visit Reason Comments Results Encounter Details Date Type Department Care Team Description 04/24/2016 Documentation Only [facility] Heart [facility], [facility] christa Crenshaw, Results Clinic [address] [place] [address] Social History Tobacco Use Types Packs/Day Years Used Date Smoking Tobacco: Never Alcohol Use Standard Drinks/Week Comments No 0 (1 standard drink = 0.6 oz pure alcoho l) Sex Assigned at Date Recorded Not on file documented as of this encounter Progress Notes Quang Montalvo, RN - 04/24/2016 3:47 PM CDT PA request called in to [phone]. YYangRN Quang Montalvo, RN - 04/24/2016 1:25 PM CDT Holter results reviewed with patient. Latitude monitor blinking light discussed with patient. Patient is scheduled to see Dr. Smith 05/15. Patient had questions about AF Ablation, instructed patient to have that discussion with Dr. Smith. Patient does not want to go on coumadin and can not afford eliquis. Patient is going to quill picking machine operator more samples of Eliquis today and will discuss with Dr. Smith about AF Ablation. Will initiate a PA for Eliquis. GalavizgRN Catherine Aranda LPN - 04/24/2016 11:03 AM CDT Pt calling EP for holter results, also has a pacemaker question, his message said blinking orange light on my machine-message to ROSIO-yvette cummins documented in this encounter Miscellaneous Notes Addendum Note - Quang Montalvo RN - 04/24/2016 3:47 PM CDT Addended by: QUANG MONTALVO on: 04/24/2016 03:47 PM Modules accepted: Orders documented in this encounter Plan of Treatment Upcoming Encounters Date Type Specialty Care Team Description 08/16/2022 Ancillary Procedure Cardiology Timothy Smith MD [address] [place] [address] (Wo rk) 08/16/2022 Office Visit Cardiology Timothy Smith MD [address] [place] [address] (Wo rk) documented as of this encounter Visit Diagnoses Not on filedocumented in this encounter Care Teams Textile Machinery Sales Representative Relationship Specialty Start Date End Date Nas Cardenas MD PCP - General Family Practice 02/01/12 04/12/17 documented as of this encounter
--- OUTSIDE RECORDS SUMMARY | 2022-07-26 10:58 | XMS_ITS | Encounter Summary ---
:1940 Author Organization [place] Address [address] [place] [address] Care Team Providers Name Role Phone Herminia Coleman MD Primary Care Provider Reason for Referral - Closed Specialty Diagnoses / Procedures Referred By Contact Refer red To Contact Diagnoses Sinoatrial node dysfunction (H) Ankur Smith MD [address] [place] [address] Referral ID Status Reason Start Date Expiration Date Visits Requ ested Visits Authorized [id number] Closed 03/06/2016 03/06/2017 1 1 Reason for Visit Auth/Cert Specialty Diagnoses / Procedures Referred By Contact Refer red To Contact Coronary Intensive Diagnoses Chest Pain / Unstable Angina ACS (acute coronary syndrome) (HCC) Coronary Care Care Unit [address] 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 He was admitted to [facility] where he was seen by Cardiology and underwent angiography the following day. This showed chronically occluded lower brule vessels with patent saphenous vein grafts as [...] discharge. He will continue on his typical LEAD JANITOR medication regimen. CODE STATUS: Full code. TOTAL DISCHARGE TIME: Greater than 30 minutes. MAYNOR JOYCE DO MT: [id number] Name: RADHA FAROOQ Account: [id number] : 1940 Admit Date: Discharge Date: 02/04/2016 Document: [id number] cc: Ankur Coleman MD documented in this encounter Discharge Instructions Discharge InstructionsMaynor Joyce DO - 02/04/2016 9:52 AM CDT Ok to restart metformin on 02/05 AttachmentsThe following attachments cannot be sent through Care Everywhere. PACEMAKER IMPLANTATION, DISCHARGE INSTRUCTIONS FOR (FIJIAN)PACEMAKER, LIVING WITH (FIJIAN)documented in this encounter Medications at Time of [...] Atrial flutter, unspecified, Coronary artery disease involving lower brule coronary artery of lower brule heart with angina pectoris (H) NITROGLYCERIN SL [...] Colmenares MD - 02/04/2016 1:47 PM CDT [facility] Cardiology Progress Note Date of Service (when [...] Rx and rhythm management. Willi Colmenares MD [facility] Interval History S: Doing well; no cp, [...] Joyce DO - 02/04/2016 9:17 AM CDT [facility] Hospitalist Progress Note Maynor Joyce D.Jenae Date of service (Date I saw patient): 02/04/2016 Assessment and Plan Radha Farooq is a 75 year old male who was directly admitted from [facility] on 02/02/16 for evaluation of epigastric discomfort, chest pain and elevated troponin concerning for NSTEMI in the setting of known CAD. CAD with 4 vessel bypass 1987 with NSTEMI: Initially presented in [facility] with epigastric discomfort and found to have elevated troponin. Troponin stable around 0.4. Angiogram 02/02 showed occluded LMand RCA, patent to LAD, Diagonal, OM and PDA. - cards recommends medical management - Continue LEAD JANITOR ASA, lisinopril, and simvastatin - metoprolol on hold as of 02/02 given five second pause - Appreciate Cardiology assistance. Five second sinus pause: noted on tele evening of 02/02. On toprol XL 50 mg daily LEAD JANITOR. -metoprolol dc 02/02 -EP consult pending GERD: [...] A1C 9.0 (7.9 in 10/16 per CareEverywhere) LEAD JANITOR regimen Metformin 1000 mg/d and Glipizide 5 [...] Herman PA-C - 02/03/2016 9:58 AM CDT [facility] Hospitalist Progress Note Date of Service (when I saw the patient): 02/03/2016 Assessment and Plan Radha Farooq is a 75 year old male who was directly admitted from [facility] on 02/02/16 for evaluation of epigastric discomfort, chest pain and elevated troponin concerning for NSTEMI in the setting of known CAD. CAD with 4 vessel bypass 1987 with NSTEMI - Initially presented in [facility] with epigastric discomfort and found to have elevated troponin - Trop trend 0.407--0.411--0.395 - Continues on heparin and nitroglycerin drip as well as LEAD JANITOR ASA, lisinopril, Toprol XL and simvastatin -Appreciate [...] 9.0 (7.9 in 10/16 per CareEverywhere) - LEAD JANITOR regimen Metformin 1000 mg/d and Glipizide 5 [...] EVALUATION. CXR RESULTS ARE NOT AVAILABLE FROM [facility] AND NEED TO BE REVIEWED-PENDING. Addendum: CXR results received from [facility] radiology. Radiology read- no acute abnormality. documented [...] approximately 0.3. He was then transferred to [facility] for further evaluation. Prior to transfer, thepatient [...] status post treatment at the [facility]. 6. Metabolic syndrome. 7. Diabetes mellitus [...] 98.5 degrees, pulse 83, respiratory rate 20, [id number]% on room air. GENERAL: This is a [...] MT: Name: RADHA FAROOQ MRN: [id number] Account: [id number] : 1940 Admitted: [id number] Document: [id number] cc: Herminia Coleman MD documented in this [...] sent for coronary angiography that showed occluded lower brule RCA, but the bypass graft was patent. [...] MD MT: [id number] Name: RADHA FAROOQ Account: [id number] : 1940 Consult Date: 02/04/2016 Document: [id number] cc: Maynor Joyce DO Siddharth Singleton DO - 02/03/2016 9:27 AM CDT CARDIOLOGY CONSULTATION DATE OF SERVICE: 02/03/2016. REQUESTING PHYSICIAN: Blane Pina MD. REASON FOR REFERRAL: Chest pain and elevated cardiac enzymes. HISTORY OF PRESENT ILLNESS: I have been asked to evaluate Radha Farooq, a very pleasant 75-year-old male for the above. He was initially seen at [facility] emergency room for the above symptoms [...] described as anginal. Mr. Farooq presented to [facility] after experiencing what he thought was acid reflux. He had had some pressure or fullness in the epigastric area. He found some partial relief with belching and he has had some partial relief with baking soda and water. He has not attempted to take sublingual nitroglycerin for his symptoms. At [facility] he was noted to have elevated cardiac enzymes; therefore, he was transferred here for further care and evaluation. I did review the electrocardiogram from his admission which demonstrates a sinus rhythm with a prolonged UT interval. There is no acute STor T-wave abnormalities seen on the EKG. His initial troponin at [facility] was 0.26. He presented with continued chest pain at [facility] and was admitted. His troponin measurements co [...] His initial blood pressure upon arriving at [facility] demonstrated a blood pressure systolic of 111. [...] was reduced recently because of the prolonged UT interval. We are happy to follow along in his care. Please feel free to contact me with any questions you havein regard to his care. SIDDHARTH SINGLETON DO MT: caprice Name: RADHA FAROOQ MRN: [id number] Account: [id number] : 1940 Consult Date: 02/03/2016 Document: [id number] documented in this encounter Miscellaneous Notes Plan [...] Notified Persons Name: Aime Notification Date/Time: 02/04/16 8728 Notification Interaction: Text paged Physician Purpose of [...] voiding in urinal. 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 and stated if angio wasn't going [...] [address] [place] [id number] (Wo rk) 08/16/2022 Office Visit Cardiology Ankur Smith MD [address] [place] [id number] (Wo rk) Scheduled Orders Name Type Priority [...] 3:45 CDT PM CDT Blane Pina MD [facility] POCT Performing Organization Address City/State/ZIP Code Phon e Number FV POINT OF CARE TEST, GLUCOSE POINT OF CARE TEST, GLUCOSE Echocardiogram Complete (02/04/2016 3:25 PM CDT) Anatomical Region Laterality Modality Echocardiography Specimen (Source) Anatomical Collection Method Collection Time Re ceived Time Location / / Volume Laterality 02/04/2016 1:04 PM CDT Narrative 02/04/2016 4:07 PM CDT Interpretation Summary ?Version 2 [facility] Echocardiography Laboratory [address] [place], [place] [address] Name: RADHA FAROOQ : 1940 Study Date: 02/04/2016 01:04 PM Age: 75 yrs Gender: Male Patient Location: [facility] Reason For Study: Chest Pain Ordering [...] MD - [id number] Interpretation Summary Version 2 [facility] Echocardiography Laboratory [address] [place] [address] Name: RADHA FAROOQ : 1940 Study Date: 02/04/2016 01:04 PM Age: 75 yrs Gender: Male Patient Location: [facility] Reason For Study: Chest Pain Ordering [...] 12-lead, tracing only (02/04/2016 2:55 PM CDT) [facility] gist Method Time Signature Interpretation ECG [...] was no complication. PACEMAKER INFORMATION: Pulse generator: [employer] [address] Model L121, [place] [id number]. Atrial lead: [employer] Model 2088TC, SR C [id number]. P-wave 2.7 millivolts. Atrial pacing thr eshold .8 volts. Atrial pace impedence 513 ohms. Ventricular lead: [employer] Model 2088TC, SR [id number]. R-wave 20 millivolts. Ventricular pacing threshold .8 [...] was no complication. PACEMAKER INFORMATION: Pulse generator: [employer] [address] Model L121, [place] [id number]. Atrial lead: [employer] Model 2088TC, SR C [id number]. P-wave 2.7 millivolts. Atrial pacing thr eshold .8 volts. Atrial pace impedence 513 ohms. Ventricular lead: [employer] Model 2088TC, SR [id number]. R-wave 20 millivolts. Ventricular pacing threshold .8 [...] athologist Signature INR 1.00 0.86 - 1.14 [facility] Specimen Anatomical Collection Method Collection Time Receive d Time (Source) Location / / Volume Laterality Blood specimen 02/04/2016 12:03 6 (specimen) PM CDT 12:13 PM CDT Ankur Smith MD LAB - BLOOD ORDERABLES Performing Organization Address City/[facility]/ZIP Code Phon e Number [facility] [address] [place] [address] [facility] [address] [place] [address], [place] [phone] (ABNORMAL) HCG qualitative (02/04/2016 12:03 PM CDT) [facility] gist Method Time Signature HCG Qualitative Canceled, Test credited NEG [place] Serum Incorrectly ordered by PCU/Clinic [facility] (A) [facility] Specimen Anatomical Collection Method Collection Time Receive d Time (Source) Location / / Volume Laterality Blood specimen 02/04/2016 12:03 6 (specimen) PM CDT 12:13 PM CDT Ankur Smith MD LAB - BLOOD ORDERABLES Performing Organization Address City/[facility]/ZIP Code Phon e Number [facility] [address] [place] [address] [facility] [address] [place] [address], [place] [phone] CBC with platelets (02/04/2016 12:03 PM CDT) athologist Signature WBC 6.4 4.0 - 11.0 [place] 10e9/L [facility] RBC Count 4.80 4.4 - 5.9 [place] 10e12/L [facility] Hemoglobin 15.8 13.3 - [place] 17.7 g/dL [facility] Hematocrit 46.8 40.0 - [place] 53.0 % [facility] MCV 98 78 - 100 [facility] MCH 32.9 26.5 - [place] 33.0 pg [facility] MCHC 33.8 31.5 - [place] 36.5 g/dL [facility] RDW 13.6 10.0 - [place] 15.0 % [facility] Platelet Count 206 150 - 450 [place] 10e9/L [facility] Specimen Anatomical Collection Method Collection Time Receive d Time (Source) Location / / Volume Laterality Blood specimen 02/04/2016 12:03 6 (specimen) PM CDT 12:13 PM CDT Ankur Smith MD LAB - BLOOD ORDERABLES Performing Organization Address City/State/ZIP Code Phon e Number [facility] [address] [place] [address] [facility] [address] [place] [address], [place] [phone] (ABNORMAL) Glucose by meter (02/04/2016 11:57 AM CDT) P athologist Signature Glucose 203 (H) 70 - 99 POINT OF CARE mg/dL TEST, GLUCOSE Specimen Anatomical Collection Method Collection Time Receive d Time (Source) Location / / Volume Laterality 02/04/2016 11:57 02/04/2016 AM CDT 12:00 PM CDT Blane NICKERSON POCT Performing Organization Address City/[facility]/ZIP Code Phon e Number FV POINT [...] CDT Blane NICKERSON POCT Performing Organization Address City/[facility]/ZIP Code Phon e Number FV POINT [...] CDT Blane NICKERSON POCT Performing Organization Address City/[facility] Phon e Number FV POINT OF [...] CDT Blane NICKERSON POCT Performing Organization Address City/[facility] Phon e Number FV POINT OF CARE TEST, GLUCOSE POINT OF CARE TEST, GLUCOSE Heart Cath Left heart cath (02/03/2016 4:25 PM CDT) Anatomical Region Laterality Modality Radio Fluoroscopy Specimen (Source) Anatomical Location Collection Method / Collectio n Time Received Time / Laterality Volume Impressions 02/03/2016 4:30 PM CDT IMPRESSION: Occluded lower brule coronary arteries. Patent bypass ??grafts. PLAN: Medical [...] sterile fashion. Under 1% Lidocaine a 4 Taiwanese sheath was placed in the right femoral artery using a modifie d Seldinger technique. Coronary angiography was performed with a 4 Taiwanese JL 4.5 and 3 DRC, multipurpose catheter diagnostic cathete rs. Standard angle and views were used for the right and left coronar ies. ??Wave wire was performed to the RCA graft. This was negative. ??A ortogram was done to look for RCA lower brule artery. FINDINGS: See below LEFT MAIN CORONARY [...] sterile fashion. Under 1% Lidocaine a 4 Taiwanese sheath was placed in the right femoral artery using a modifie d Seldinger technique. Coronary angiography was performed with a 4 Taiwanese JL 4.5 and 3 DRC, multipurpose catheter diagnostic cathete rs. Standard angle and views were used for the right and left coronar ies. Wave wire was performed to the RCA graft. This was negative. Aor togram was done to look for RCA lower brule artery. FINDINGS: See below LEFT MAIN CORONARY [...] widely patent . FFR negative. IMPRESSION: Occluded lower brule coronary art eries. Patent bypass grafts. PLAN: [...] CDT) athologist Signature Heparin 10A 0.29 IU/mL [facility] Comment: Therapeutic Range: ?? UFH: [...] Organization Address City/State/ZIP Code Phon e Number [facility] [address] [place] [address] [facility] [address] [place] [address], U [phone] (ABNORMAL) Glucose by meter (02/03/2016 12:04 PM [...] Signature Troponin I ES 0.395 () 0.000 [facility] 0.045 ug/L [facility] Comment: The 99th percentile for upper [...] LAB - BLOOD ORDERABLES Performing Organization Address City/[facility]/ZIP Code Phon e Number [facility] [address] [place] [address] [facility] [address] [place] [address], [place] [phone] Heparin Xa (10a) Level (02/03/2016 4:50 AM CDT) [facility] Method Time Signature Heparin 10A <0.10 IU/mL [facility] Therapeutic Range: [place] ?? UFH: ?? 0.15-0.35 [...] City/State/ZIP Code Phon e Number [facility] [address] [place] [address] [phone] [facility] [address] [place] [address], [place] [phone] (ABNORMAL) Basic metabolic panel (02/03/2016 4:50 AM CDT) P athologist Signature Sodium 138 133 - 144 [place] mmol/L [facility] Potassium 4.1 3.4 - 5.3 [place] mmol/L [facility] Chloride 103 94 - 109 [place] mmol/L [facility] Carbon Dioxide 26 20 - 32 [place] mmol/L [facility] Anion Gap 9 3 - 14 [place] mmol/L [facility] Glucose 167 (H) 70 - 99 [place] mg/dL [facility] Urea Nitrogen 27 7 - 30 [place] mg/dL [facility] Creatinine 1.02 0.66 - [place] 1.25 mg/dL [facility] GFR Estimate 71 >60 [place] mL/min/1.[address] Comment: Non GFR Calc GFR Estimate If Black 86 >60 mL/min/1.7m2 F [facility] Comment: GFR Calc Calcium 8.4 (L) 8.5 - 10.1 mg/dL [facility] Specimen Anatomical Collection Method Collection Time Receive d Time (Source) Location / / Volume Laterality Blood specimen 02/03/2016 4:50 AM 016 5:01 (specimen) CDT AM CDT Blane Pina MD LAB - BLOOD ORDERABLES Performing Organization Address City/State/ZIP Code Phon e Number [facility] [address] [address] [facility] [address] [address], [facility] [phone] (ABNORMAL) Hemoglobin A1c (02/03/2016 4:50 AM CDT) P athologist Signature Hemoglobin A1C 9.0 (H) 4.3 - 6.0 [facility] Specimen Anatomical Collection Method Collection Time Receive d Time (Source) Location / / Volume Laterality Blood specimen 02/03/2016 4:50 AM 016 5:01 (specimen) CDT AM CDT Blane Pina MD LAB - BLOOD ORDERABLES Performing Organization Address City/State/ZIP Code Phon e Number [facility] [address] [address] [phone] [facility] [address] [address], [place] [phone] (ABNORMAL) Lipid panel reflex to direct LDL (02/03/2016 4:50 AM CDT) P athologist Signature Cholesterol 155 <200 mg/dL [facility] Triglycerides 190 (H) <150 mg/dL [facility] Comment: Borderline high: ??150-199 mg/dl High: ? 200-499 mg/dl Very high: ? >499 mg/dl HDL Cholesterol 31 (L) >39 mg/dL [facility] LDL Cholesterol Calculated 86 <100 mg/dL [facility] Comment: Desirable: <100 mg/dl Non HDL Cholesterol 124 <130 mg/dL [facility] Specimen Anatomical Collection Method Collection Time Receive d Time (Source) Location / / Volume Laterality Blood specimen 02/03/2016 4:50 AM 016 5:01 (specimen) CDT AM CDT Blane Pina MD LAB - BLOOD ORDERABLES Performing Organization Address City/State/ZIP Code Phon e Number [facility] [address] [address] [facility] [address] [address], [place] [phone] (ABNORMAL) Troponin I - Now then in 4 hours x 3 (02/03/2016 1:40 AM CDT) Analysis Performed At Patho logist Time Signature Troponin I ES 0.441 () 0.000 - [place] 0.045 ug/L [facility] Comment: The 99th percentile for upper [...] City/State/ZIP Code Phon e Number [facility] [address] [place] [address] [facility] [address] [place] [address], [place] [phone] (ABNORMAL) Troponin I - Now then in 4 hours x 3 (02/02/2016 9:40 PM CDT) Analysis Performed At Patho logist Time Signature Troponin I ES 0.407 () 0.000 - [place] 0.045 ug/L [facility] Comment: The 99th percentile for upper [...] City/State/ZIP Code Phon e Number [facility] [address] [place] [address] [facility] [address] [place] [address], [place] [phone] CBC with platelets (02/02/2016 9:40 PM CDT) athologist Signature WBC 10.3 4.0 - 11.0 [place] 10e9/L [facility] RBC Count 4.63 4.4 - 5.9 [place] 10e12/L [facility] Hemoglobin 15.2 13.3 - [place] 17.7 g/dL [facility] Hematocrit 45.0 40.0 - [place] 53.0 % [facility] MCV 97 78 - 100 [facility] MCH 32.8 26.5 - [place] 33.0 pg [facility] MCHC 33.8 31.5 - [place] 36.5 g/dL [facility] RDW 13.6 10.0 - [place] 15.0 % [facility] Platelet Count 196 150 - 450 [place] 10e9/L [facility] Specimen Anatomical Collection Method Collection Time Receive d Time (Source) Location / / Volume Laterality Blood specimen 02/02/2016 9:40 PM 016 9:47 (specimen) CDT PM CDT Blane Pina MD LAB - BLOOD ORDERABLES Performing Organization Address City/State/ZIP Code Phon e Number [facility] [address] [place] [address] [facility] [address] [place] [address], [place] [phone] (ABNORMAL) Glucose by meter (02/02/2016 9:12 PM [...] Atrial flutter, unspecified Coronary artery disease involving lower brule coronary artery of lower brule heart with angina pectoris (H) ACS (acute [...] IV for 2 hours prior to cardiac laboratory coordinator procedure, then decrease to 75 mL/hr to [...] MIN PRN, other, bolus dose, Starting on Naa 02/03/16 at 1544, when verbally ordered by [...] recheck in am 5/6 Heparin dosed per [place] Protocol. Monitor platelets every three days while [...] Anel Patterson RN) Routine, 3 g, Intravenous, PRE-OP/PRE-UT OCEDURE, Starting on Sun02/04/16 at 1148, For [...] Patterson, RN)1356 (Not Given - Provider: Anel Pattesron RN - Reason: NPO)1611 (Given - Provider: [...] mg (CANCELED) 35 (Given - Provider: Nieves Garnado RN) 50 mg, Oral, DAILY, First dose [...] IV for 2 hours prior to cardiac laboratory coordinator procedure, then decrease to 75 mL/hr to [...] RN) at 75 mL/hr, Intravenous, CONTINUOUS, Ad extruder over 4 Hours, or until patient is [...] recheck in am 5/6 Heparin dosed per [place] P 1525 (S topped - Provider: Paulina [...] Post-procedure documented in this encounter Care Teams Buildings And Grounds Coordinator Relationship Specialty Start Date End Date Herminia Coleman MD PCP - General Family Practice 02/01/12 04/12/17 documented as of this encounter
--- OUTSIDE RECORDS SUMMARY | 2022-07-26 10:58 | XMS_ITS | Encounter Summary ---
:1940 Author Organization [place] Address [address] [place] [address] Care Team Providers Name Role Phone Nas Cardenas MD Primary Care Provider Reason for Visit Reason Comments Pacemaker Check Encounter Details Date Type Department Care Team Description 02/14/2016 Allied Health/Nurse [facility] Heart Pacemaker Check Visit Clinic [address] [place] [phone] Social History Tobacco Use Types Packs/Day Years Used Date Smoking Tobacco: Never Alcohol Use Standard Drinks/Week Comments Yes 0 (1 standard drink = 0.6 oz pure alcoho l) Sex Assigned at Date Recorded Not on file documented as of this encounter Progress Notes Mary Norris, RN, RN - 02/14/2016 11:33 AM CDT [place] [employer] 7-10 day Post Pacemaker Device Check AP: 14 % 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 Steven Canchola MD PROCEDURES documented in this encounter Visit Diagnoses Diagnosis Cardiac pacemaker in situ - Primary documented in this encounter Care Teams Vaccine Manager Relationship Specialty Start Date End Date Nas Cardenas MD PCP - General Family Practice 02/01/12 04/12/17 documented as of this encounter
--- OUTSIDE RECORDS SUMMARY | 2022-07-26 10:58 | XMS_ITS | Encounter Summary ---
:1940 Author Organization [place] Address [address] [place] [address] Care Team Providers Name Role Phone Nas Cardenas MD Primary Care Provider Reason for Visit Reason Comments ICD Check Encounter Details Date Type Department Care Team Description 03/29/2017 Allied Health/Nurse [facility] Heart ICD Check Visit Clinic [address] [place] [phone] Social History Tobacco Use Types Packs/Day Years Used Date Smoking Tobacco: Never Alcohol Use Standard Drinks/Week Comments No 0 (1 standard drink = 0.6 oz pure alcoho l) Sex Assigned at Date Recorded Not on file documented as of this encounter Progress Notes Mary Norris RN, RN - 03/29/2017 4:30 PM CDT Courtesy check: No charge. [employer] remote ICD alert for VT and NSVT [...] to schedule f/u with Dr Smith or LAMINATION INSPECTOR if symptoms persist. Or if he cont to have frequent fast rates, we can review need to med changes with Dr Smith. 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
--- OUTSIDE RECORDS SUMMARY | 2022-07-26 10:58 | XMS_ITS | Encounter Summary ---
:1940 Author Organization [place] Address [address] [facility] [place] [address] Care Team Providers Name Role Phone Nas Cardenas MD Primary Care Provider Reason for Referral Specialty Diagnoses / Procedures Referred By Contact Refer red To Contact Ankur Smith MD [address] [place] [address] Referral ID Status Reason Start Date Expiration Date Visits Requ ested Visits Authorized Scheduling Instructions ANTICOAGULATION CLINIC COLLABORATIVE MD ACTICE AGREEMENT The following represents a collaborative practice agreement among the physicians of the Clinic and staff of the Anticoagulat ion Clinic Service ([facility]) Physicians shall: 1. Refer patients requiring anticoagulat ion to a specialty service staffed by personnel of Pharmacy Services and super vised by Clinic physicians. 2. Respond to questions and referrals fr om pharmacy staff regarding delinquent or difficult patients. 3. Inform the [facility] staff when a new patie nt is [...] Sinoatrial node dysfunction (H) Tammy Montenegro PA-C [address] [place] [id number] Referral ID Status Reason Start Date Expiration Date Visits Requ ested Visits Authorized [id number] Closed 12/04/2016 12/04/2017 1 1 Encounter Details Date Type Department Care Team Description 12/29/[address] [facility] Buffy Montenegro PA-C [address] [place] [id number] Paroxysmal atrial fibrillation (H) (Prim arnie Dx); Heart Clinic Ankur Beauchamp MD [address] [place] [phone] Sinoatrial node dysfunction (H) [address] [facility] [address] [place] [phone] Social History Tobacco Use Types Packs/Day Years [...] flutter ablation in 2012. He later receiveda [employer] dual-chamber pacemaker for symptomatic sinus node [...] in your office. cc: Nas Cardenas MD [facility] [address] [place] [address] ANKUR SMITH MD MT: MANDIE Name: RADHA VILLA Account: [id number] : 1940 Service Date: 12/29/2016 Document: [id number] Ankur Smith MD - 12/29/2016 1:15 PM [...] [address] [place] [address] documented in this encounter Plan of Treatment Upcoming Encounters Date Type Specialty Care Team Description 08/16/2022 Ancillary Procedure Cardiology Ankur Smith MD [address] [place] [address] (Wo rk) 08/16/2022 Office Visit Cardiology Ankur Smith MD [address] [place] [address] (Wo rk) Scheduled Referrals Name Type Priority Associated Diagnoses Order S chedule INR/ANTICOAG REFERRAL Referral Routine Paroxysmal atrial E xpected: 12/29/2016, fibrillation (H) Expires: documented as of this encounter Results Holter Monitor 24 hour - Adult (01/08/2017) Narrative RADIANT - 01/08/2017 [facility] [address] [place] [phone] 01/04/2017 Patient: ??Radha Covington Chart: [id number] : ??1940 Age: ??76 year old Sex: ??male Procedure: ??Holter Monitor Placed: plea se see scanned document for result once interpretation is completed. Receptionist Telephone Operator performing hook-up: ??Sheri Yuen Ankur Smith MD CV CARDIAC SERVICES ORDERABL ES Performing Organization Address City/State/ZIP Code Phon e Number RADIANT documented in this encounter Visit Diagnoses Diagnosis Paroxysmal atrial fibrillation (H) - Ria jing Atrial fibrillation Sinoatrial node dysfunction (H) Sinoatrial node dysfunction Paroxysmal atrial fibrillation (H) Atrial fibrillation documented in this encounter Care Teams Latent Print Examiner Relationship Specialty Start Date End Date Nas Cardenas MD PCP - General Family Practice 02/01/12 04/12/17 documented as of this encounter
--- OUTSIDE RECORDS SUMMARY | 2022-07-26 10:58 | XMS_ITS | Encounter Summary ---
:1940 Author Organization [place] Address [address] [facility] [place] [address] Care Team Providers Name Role Phone Nas Cardenas MD Primary Care Provider Reason for Visit Reason Onset Date Comments Prior Auth - Medication 04/24/2016 ELIQUIS 5 MG- NO PA NEEDED Encounter Details Date Type Department Care Team Description 04/24/2016 Telephone [facility] Heart Zarina Smith MD Prior Auth - Medication Clinic [place] [address] (ELIQUIS 5 MG- NO PA [address] NEEDED) [facility] [address] [place] [address] [place] [address] Social History Tobacco Use Types Packs/Day [...] [address] [place] [address] (Wo rk) 08/16/2022 Office Visit Cardiology Timothy Smith MD [address] [place] [address] (Wo rk) documented as of this encounter Visit Diagnoses Not on filedocumented in this encounter Care Teams Assistant Director Of Residence Life Relationship Specialty Start Date End Date Nas Cardenas MD PCP - General Family Practice 02/01/12 04/12/17 documented as of this encounter
--- OUTSIDE RECORDS SUMMARY | 2022-07-26 10:58 | XMS_ITS | Encounter Summary ---
:1940 Author Organization [place] Address [address] [facility] [place] [address] Care Team Providers Name Role Phone Nas Cardenas MD Primary Care Provider Reason for Visit (Routine) - Closed Specialty Diagnoses / Procedures Referred By Contact Refer red To Contact Cardiology Diagnoses Per Fabiola Woo Cardiac Test [facility] Procedures HOLTER MONITOR [address] [place], [place] [address] Phone: Fax: Referral ID Status Reason Start Date Expiration Date Visits Requ ested Visits Authorized [id number] Closed 03/29/2016 03/29/2017 1 1 Encounter Details Date Type Department Care Team Description 04/13/2016 Hospital Encounter [facility] Timothy Smith MD SSS (sick sinus syndrome) (H); [facility] [address] [place] [address] Typical atrial flutter (H) [address] [employer] [facility] [address] [place] [address] [place], [place] [phone] (Work) [phone] Social History Tobacco Use Types Packs/Day Years [...] 08/16/2022 Ancillary Procedure Cardiology Timothy Smith MD [address] [place] [address] (Wo rk) 08/16/2022 Office Visit Cardiology Timothy Smith MD [address] [place] [address] (Wo rk) documented as of this encounter Procedures Procedure Name Priority Date/Time Associated Diagnosis Comme nts HOLTER MONITOR 24 HOUR Routine 04/18/2016 SSS (sick sinus Re sults for this - ADULT syndrome) (H) procedure are in the Typical atrial flutter resul ts section. (H) documented in this encounter Results Holter Monitor 24 hour - Adult (04/18/2016) Narrative RADIANT - 04/18/2016 [facility] [address] [facility] [address] [facility] [address] 04/13/2016 Patient: ??Haris Bullard [facility] Chart: [id number] : ??1940 Age: ??75 year old Sex: ??male Procedure: ??Holter Monitor Placed: plea se see scanned document for result once interpretation is comple star. Acidizer Helper performing hook-up: ??Sheri Yuen Timothy Smith MD CV CARDIAC SERVICES ORDERABL ES Performing Organization Address City/State/ZIP Code Phon e Number RADIANT documented in this encounter Visit Diagnoses Diagnosis SSS (sick sinus syndrome) (H) Sinoatrial node dysfunction Typical atrial flutter (H) Atrial flutter documented in this encounter Care Teams Splitter Head Relationship Specialty Start Date End Date Nas Cardenas MD PCP - General Family Practice 02/01/12 04/12/17 documented as of this encounter
--- OUTSIDE RECORDS SUMMARY | 2022-07-26 10:58 | XMS_ITS | Encounter Summary ---
:1940 Author Organization [place] Address [facility] [place] [address] Care Team Providers Name Role Phone Nas Cardenas MD Primary Care Provider Reason for Visit Reason Onset Date Comments Refill Request 06/15/2016 Encounter Details Date Type Department Care Team Description 06/15/2016 Refill [facility] Heart Mraian Vega, Refill Request Clinic [place] [address] [facility] [address] [place], [place] [phone] Social History Tobacco Use Types Packs/Day Years [...] [address] [place] [address] (Wo rk) 08/16/2022 Office Visit Cardiology Timothy Smith MD [address] [place] [phone] (Wo rk) documented as of this encounter Visit Diagnoses Diagnosis Atrial flutter (H) - Primary Atrial flutter documented in this encounter Care Teams Plaster Helper Relationship Specialty Start Date End Date Nas Cardenas MD PCP - General Family Practice 02/01/12 04/12/17 documented as of this encounter
--- OUTSIDE RECORDS SUMMARY | 2022-07-26 10:58 | XMS_ITS | Encounter Summary ---
:1940 Author Organization [place] Address [facility] [place] [address] Care Team Providers Name Role Phone Nas Cardenas MD Primary Care Provider Reason for Visit Reason Comments Pacemaker Check PPM Latitude NXT Encounter Details Date Type Department Care Team Description 10/04/2016 Allied Health/Nurse [facility] Pac emaker Check (PPM Visit Heart Clinic [place] Latitude NXT) [address] [place] [address] [address] [place] [phone] Social History Tobacco Use Types Packs/Day Years Used Date Smoking Tobacco: Never Alcohol Use Standard Drinks/Week Comments No 0 (1 standard drink = 0.6 oz pure alcoho l) Sex Assigned at Date Recorded Not on file documented as of this encounter Progress Notes Sary Riojas - 10/04/2016 8:17 AM CST [employer] EL L121 (D) Remote PPM Device Check AP: 2% REGIONAL OFFICE COORDINATOR: 13% Mode: DDDR Presenting Rhythm: Aflutter with VS and REGIONAL OFFICE COORDINATOR Heart Rate: evidence on histogram of some [...] results and next transmission date. KOlson CVT D SALES MANAGER documented in this encounter Plan of Treatment Upcoming Encounters Date Type Specialty Care Team Description 08/16/2022 Ancillary Procedure Cardiology Timothy Smith MD [address] [place] [address] (Wo rk) 08/16/2022 Office Visit Cardiology Timothy Smith MD [address] [place] [address] (Wo rk) documented as of this encounter Procedures Procedure Name Priority Date/Time Associated Diagnosis Comme [facility] PM DEVICE Routine 10/04/2016 8:35 AM Cardiac pacemaker in INTERROGATE REMOTE, UP BRAND SALES MANAGER situ TO 90 DAYS, LEAD/LEADLESS HC INTERR DEVICE EVAL Routine 10/04/2016 Cardiac pacemaker i n REMOTE, PM/LDLS PM/ICD, situ UP TO 90 DAYS documented in this encounter Results INTERROGATION DEVICE EVAL REMOTE, PACER/ICD (24196) (10/04/2016) Narrative This result has an attachment that is no t available. Chris Hinds MD PROCEDURES documented in this encounter Visit Diagnoses Diagnosis Cardiac pacemaker in situ - Primary documented in this encounter Care Teams Block Sawyer Relationship Specialty Start Date End Date Nas Cardenas MD PCP - General Family Practice 02/01/12 04/12/17 documented as of this encounter
--- OUTSIDE RECORDS SUMMARY | 2022-07-26 10:58 | XMS_ITS | Encounter Summary ---
:1940 Author Organization [place] Address [address] [facility] [place] [address] Care Team Providers Name Role Phone Nas Cardneas MD Primary Care Provider Reason for Visit (Routine) - Closed Specialty Diagnoses / Procedures Referred By Contact Refer red To Contact Cardiology Diagnoses Per Sarah 24 hour holter, AFIB Zzrh Cardiac Test [facility] Procedures HOLTER MONITOR [address] [place], [place] [address] Phone: Fax: Referral ID Status Reason Start Date Expiration Date Visits Requ ested Visits Authorized [id number] Closed 01/03/2017 01/03/2018 1 1 Encounter Details Date Type Department Care Team Description 01/04/2017 Hospital Encounter [facility] Timothy Smith MD [facility] [address] fibrillation (H) [address] [place] [address] [place], [place] [phone] [address] (Work) [phone] Social History Tobacco Use Types Packs/Day Years [...] MD [address] [place] [address] (Wo rk) 08/16/2022 Office Visit Cardiology Timothy Smith MD [address] [place] [address] (Wo rk) documented as of this encounter Procedures Procedure Name Priority Date/Time Associated Diagnosis Comme nts HOLTER MONITOR 24 Routine 01/08/2017 Paroxysmal atrial Resul ts for this HOUR - ADULT fibrillation (H) procedure a re in the results section . documented in this encounter Results Holter Monitor 24 hour - Adult (01/08/2017) Narrative RADIANT - 01/08/2017 [facility] [address] [facility] [address] [facility] [address] 01/04/2017 Patient: ??Haris Bullard [facility] Chart: [id number] : ??1940 Age: ??76 year old Sex: ??male Procedure: ??Holter Monitor Placed: plea se see scanned document for result once interpretation is completed. Customer Advisor performing hook-up: ??Sheri Yuen Timothy Smith MD CV CARDIAC SERVICES ORDERABL ES Performing Organization Address City/State/ZIP Code Phon e Number RADIANT documented in this encounter Visit Diagnoses Diagnosis Paroxysmal atrial fibrillation (H) Atrial fibrillation documented in this encounter Care Teams Calender Machine Operator Relationship Specialty Start Date End Date Nas Cardenas MD PCP - General Family Practice 02/01/12 04/12/17 documented as of this encounter
--- OUTSIDE RECORDS SUMMARY | 2022-07-26 10:58 | XMS_ITS | Encounter Summary ---
:1940 Author Organization [place] Address [address] [facility] [place] [address] Care Team Providers Name Role Phone Nas Cardenas MD Primary Care Provider Reason for Visit Reason Onset Date Comments Left Message To Call 01/23/2017 re the warfarin Encounter Details Date Type Department Care Team Description 01/23/2017 Telephone [facility] Catherine Aranda, Left Message To Call Heart [facility] [place] (re the warfarin) [address] [facility] [address] [place] [address] Social History Tobacco Use Types Packs/Day [...] [address] [place] [address] (Wo rk) 08/16/2022 Office Visit Cardiology Timothy Smith MD [address] [place] [address] (Wo rk) documented as of this encounter Visit Diagnoses Not on filedocumented in this encounter Care Teams Mental Health Program Specialist Relationship Specialty Start Date End Date Nas Cardenas MD PCP - General Family Practice 02/01/12 04/12/17 documented as of this encounter
--- OUTSIDE RECORDS SUMMARY | 2022-07-26 10:58 | XMS_ITS | Encounter Summary ---
:1940 Author Organization [place] Address [address] [facility] [place] [address] Care Team Providers Name Role Phone Nas Cardenas MD Primary Care Provider Reason for Visit Reason Onset Date Comments Formulary Issue 03/29/2016 Eliquis and NOACS in general are not covered by his insurance plan Encounter Details Date Type Department Care Team Description 03/29/2016 Telephone [facility] Heart [facility] Clinic [place] Bui RN, RN (Eliquis and NOACS in [address] [facility] HEART genera are not covered [address] by his insurance plan) [place] [phone] [address] [facility] [phone] [address] [place] [phone] Social History Tobacco Use Types Packs/Day Years [...] office. Paper orders sent to his office ([facility]); 1 month Rx for 5 mg warfarin sent to pharmacy. Supa documented in this encounter Plan of Treatment Upcoming Encounters Date Type Specialty Care Team Description 08/16/2022 Ancillary Procedure Cardiology Timothy Smith MD [address] [place] [address] (Wo rk) 08/16/2022 Office Visit Cardiology Timothy Smith MD [address] [place] [address] (Wo rk) documented as of this encounter Visit Diagnoses Diagnosis Typical atrial flutter (H) - Primary Atrial flutter documented in this encounter Care Teams Agricultural Commodities Inspector Relationship Specialty Start Date End Date Nas Cardenas MD PCP - General Family Practice 02/01/12 04/12/17 documented as of this encounter
--- OUTSIDE RECORDS SUMMARY | 2022-07-26 10:58 | XMS_ITS | Encounter Summary ---
:1940 Author Organization [place] Address [facility] [place] [address] Care Team Providers Name Role Phone Nas Cardenas MD Primary Care Provider Reason for Visit Reason Comments Pacemaker Check PPM Latitude Encounter Details Date Type Department Care Team Description 01/03/2017 Allied Health/Nurse [facility] Pac emaker Check (PPM Visit Heart Clinic [place] Latitude) [address] [place] [address] [address] [place] [address] Social History Tobacco Use Types Packs/Day Years Used Date Smoking Tobacco: Never Alcohol Use Standard Drinks/Week Comments No 0 (1 standard drink = 0.6 oz pure alcoho l) Sex Assigned at Date Recorded Not on file documented as of this encounter Progress Notes Rachel Freedman - 01/03/2017 11:45 AM CDT [employer] (D) Remote PPM Device Check AP: 2 % MANAGEMENT TRAINEE PROGRAM STORES: 14 % Mode: DDDR Presenting Rhythm: Aflutter/MANAGEMENT TRAINEE PROGRAM STORES Heart Rate: Adequate rates per histogram Sensing: [...] [address] [place] [address] (Wo rk) 08/16/2022 Office Visit Cardiology Timothy Smith MD [address] [place] [address] (Wo rk) documented as of this encounter Procedures Procedure Name Priority Date/Time Associated Diagnosis Comme nts Z PM DEVICE Routine 01/03/2017 9:24 AM Cardiac pacemaker in INTERROGATE REMOTE, UP CDT situ TO 90 DAYS, LEAD/LEADLESS HC INTERR DEVICE EVAL Routine 01/03/2017 Cardiac pacemaker i n REMOTE, PM/LDLS PM/ICD, situ UP TO 90 DAYS documented in this encounter Results INTERROGATION DEVICE EVAL REMOTE, PACER/ICD (73550) (01/03/2017) Narrative This result has an attachment that is no t available. Timothy Smith MD PROCEDURES documented in this encounter Visit Diagnoses Diagnosis Cardiac pacemaker in situ - Primary documented in this encounter Care Teams Agricultural Chemist Relationship Specialty Start Date End Date Nas Cardenas MD PCP - General Family Practice 02/01/12 04/12/17 documented as of this encounter
--- OUTSIDE RECORDS SUMMARY | 2022-07-26 10:59 | XMS_ITS | Encounter Summary ---
:1940 Author Organization [place] Address [address] [facility] [place] [address] Care Team Providers Name Role Phone Nas Cardenas MD Primary Care Provider Encounter Details Date Type Department Care Team Description 02/27/2013 Historic Results [facility] Heart Unknown, [facility] ider Clinic [place] [address] [facility] [address] [place] [phone] Social History Tobacco Use Types Packs/Day Years [...] [address] [place] [phone] (Wo rk) 08/16/2022 Office Visit Cardiology Timothy Smith MD [address] [place] [phone] (Wo rk) documented as of this encounter [...] on filedocumented in this encounter Care Teams Plant And Instrument Engineer Relationship Specialty Start Date End Date Nas Cardenas MD PCP - General Family Practice 02/01/12 04/12/17 documented as of this encounter
--- OUTSIDE RECORDS SUMMARY | 2022-07-26 10:59 | XMS_ITS | Encounter Summary ---
:1940 Author Organization [place] Address [address] [facility] [place] [address] Care Team Providers Name Role Phone Nas Cardenas MD Primary Care Provider Encounter Details Date Type Department Care Team Description 02/27/2013 Results Only [facility] Timothy Smith MD Hospital Results [address] [place] [address] (Wo rk) Social History Tobacco Use Types [...] [address] [place] [phone] (Wo rk) 08/16/2022 Office Visit Cardiology Timothy Smith MD [address] [place] [phone] (Wo rk) documented as of this encounter [...] using the Seldi nger technique, a 5 [place] decapolar catheter was inserted through the left [...] tricuspid isthmus. ??The ablation catheter was from [facility] with 8 mm tip. ??The ablation [...] using the Selding er technique, a 5 [place] decapolar catheter was inserted through the left [...] tricuspid isthmus. The ablation catheter was from [facility] with 8 mm tip. The ablation [...] on filedocumented in this encounter Care Teams Federal Judicial Law Clerk Relationship Specialty Start Date End Date Nas Cardenas MD PCP - General Family Practice 02/01/12 04/12/17 documented as of this encounter
--- OUTSIDE RECORDS SUMMARY | 2022-07-26 10:59 | XMS_ITS | Encounter Summary ---
:1940 Author Organization [place] Address [address] [facility] [place] [address] Care Team Providers Name Role Phone Nas Cardenas MD Primary Care Provider Encounter Details Date Type Department Care Team Description 01/15/2013 Historic Results [facility] Heart Unknown, Doct or, [facility] [address] [place] [address] [address] [place] [phone] Social History Tobacco Use Types Packs/Day Years [...] [address] [place] [address] (Wo rk) 08/16/2022 Office Visit Cardiology Timothy Smith MD [address] [place] [phone] (Wo rk) documented as of this encounter Procedures Procedure Name Priority Date/Time Associated Comments Diagnosis [facility] HISTORICAL Routine 01/15/2013 12:00 AM Resu lts for this RESULTS CDT procedure are i n the results section. documented in this encounter Results [facility] Historical Results (01/15/2013 12:00 AM CDT) P athologist Signature INR 2.9 [facility] HISTORICAL RESULTS Specimen (Source) Anatomical Location Collection Method / Collectio n Time Received Time / Laterality Volume 01/15/2013 01/15/2013 Doctor Unknown MD LABORATORY Performing Organization Address City/State/ZIP Code Phon e Number [facility] HISTORICAL RESULTS documented in this encounter Visit Diagnoses Not on filedocumented in this encounter Care Teams Surgical Technology Instructor Relationship Specialty Start Date End Date Nas Cardenas MD PCP - General Family Practice 02/01/12 04/12/17 documented as of this encounter
--- OUTSIDE RECORDS SUMMARY | 2022-07-26 10:59 | XMS_ITS | Encounter Summary ---
:1940 Author Organization [place] Address [address] [place] [address] Care Team Providers Name Role Phone Nas Cardenas MD Primary Care Provider Reason for Visit Reason Onset Date Comments Previsit 12/09/2014 Irregular Heart Beat 12/09/2014 Encounter Details Date Type Department Care Team Description 12/09/2014 PRE VISIT [facility] Heart Zarina Smith MD Previsit; [facility] [place] [address] Heart Beat [address] [facility] [facility] [address] [facility] [address] [place] [address] [place] [phone] Social History Tobacco Use Types Packs/Day Years [...] [address] [place] [phone] (Wo rk) 08/16/2022 Office Visit Cardiology Timothy Smith MD [address] [place] [phone] (Wo rk) documented as of this encounter Visit Diagnoses Not on filedocumented in this encounter Care Teams Top Waddy Relationship Specialty Start Date End Date Nas Cardenas MD PCP - General Family Practice 02/01/12 04/12/17 documented as of this encounter
--- OUTSIDE RECORDS SUMMARY | 2022-07-26 10:59 | XMS_ITS | Encounter Summary ---
:1940 Author Organization [place] Address [address] [facility] [place] [address] Care Team Providers Name Role Phone Herminia Coleman MD Primary Care Provider Graham Licona MD Primary Care Provider [facility] Primary Care Provider [phone] Slava Hernandez PA-C Primary Care Provider Timothy Smith MD Unavailable Graham Licona MD Primary Care Provider Encounter Details Date Type Department Care Team Description 03/18/2013 Office Visit-[facility] Guera Huff vale [facility] [place] Mcgee PA-C [address] [facility] [address] [place] [phone] Social History Tobacco Use Types Packs/Day Years Used Date Smoking Tobacco: Never Alcohol Use Standard Drinks/Week Comments Yes 0 (1 standard drink = 0.6 oz pure alcoho l) Sex Assigned at Date Recorded Not on file documented as of this encounter Progress Notes Michelle Huff PA-C - 04/26/2013 2:24 PM CDT Progress Note Created by: HANK Arellano [id number] DATE: 03/18/2013 RADHA VILLA DATE OF : 1940 AGE: [age] years old Referring Physician: HERMINIA COLEMAN Referring Clinic: [facility] CURRENT DIAGNOSES 1. - Hyperlipidemia, 272.4 2. - Hypertension, 401.1 3. [place]-Recent Unspecified, 410.91 4. - CAD, 414.00 5. [...] performed. Subsequently he went to [facility] and underwent a direct current cardioversion. [...] Weight- 318.00 lbs. Height- 71 BMI Measurement: Grokr Error: [Gushcloud][Grokr SQL Certified Coding Specialist Brand Protection Manager][SQL Certified Coding Specialist]Divide by zero error encountered. - [id number] CONSTITUTIONAL cooperative, alert and oriented,well developed, well [...] in 1985 with a four-vessel bypass at [facility]. Subsequent angiography in Jan, 2012, did [...] [address] [place] [address] (Wo rk) 08/16/2022 Office Visit Cardiology Timothy Smith MD [address] [place] [phone] (Wo rk) documented as of this encounter Visit Diagnoses Not on filedocumented in this encounter Care Teams Wood Sash And Frame Carpenter Relationship Specialty Start Date End Date Herminia Coleman, PCP - General Family Practice 02/01/1203/31 Graham Licona MD PCP - General Family Practice 04/13/17 01/15/18 [facility] [address] [place] [address] Vinny Reinoso PCP - General 01/16/18 07/01/[address] [place] [address] [place] [phone] Slava Hernandez, PCP - General Physician Insurance Follow Up Rep 07/02/1806/02 PA-C [facility] [address] [place] [address] Graham Licona MD PCP - General Family Medicine 06/30/21 [facility] [address] [place] [address] Timothy Smith MD Assigned Heart and 07/23/20 [address] [facility] Vascular Provider [address] [place] [id number] documented as of this encounter
--- OUTSIDE RECORDS SUMMARY | 2022-07-26 10:59 | XMS_ITS | Encounter Summary ---
:1940 Author Organization [place] Address [address] [facility] [place] [address] Care Team Providers Name Role Phone Herminia Coleman MD Primary Care Provider Graham Licona MD Primary Care Provider [facility] Primary Care Provider [phone] Slava HernandezC Primary Care Provider Timothy Smith MD Unavailable Graham Licona MD Primary Care Provider Encounter Details Date Type Department Care Team Description 05/23/2013 Office [facility] Rafael Smith MD [address] [place] [address] [place] [address] [phone] Social History Tobacco Use Types Packs/Day Years [...] Physician: HERMINIA COLEMAN Referring Clinic: [facility] CURRENT DIAGNOSES 1. - Hyperlipidemia, 272.4 2. - Hypertension, 401.1 3. [place]-Recent Unspecified, 410.91 4. - CAD, 414.00 5. [...] hr, 1 p.o. twice daily, #180 (One [place] Eighty) MEDICATIONS REFILLED/STOPPED TODAY: metoprolol succinate 50 [...] [address] [place] [phone] (Fiorella olvera) 08/16/2022 Office Visit Cardiology Timothy Smith MD [address] [place] [phone] (Fiorella olvera) documented as of this encounter Visit Diagnoses Not on filedocumented in this encounter Care Teams Ice Guard Inspector Relationship Specialty Start Date End Date Herminia [place], ADA - General Family Practice 02/01/1203/31 Graham Licona MD PCP - General Family Practice 04/13/17 01/15/18 [facility] [address] [place] [address] Vinny Reinoso PCP - General 01/16/18 07/01/18 [place] [address] [place] [phone] Slava Hernandez, PCP - General Physician Dinkey Engine Firer 07/02/1806/02 HANK-C [facility] [address] [place] [address] Graham Licona MD PCP - General Family Medicine 06/30/21 [facility] [address] [place] [address] Timothy Smith MD Assigned Heart and 07/23/20 [address] Vascular Provider [address] [place] [address] documented as of this encounter
--- OUTSIDE RECORDS SUMMARY | 2022-07-26 10:59 | XMS_ITS | Encounter Summary ---
:1940 Author Organization [place] Address [address] [facility] [place] [address] Care Team Providers Name Role Phone Nas Cardenas MD Primary Care Provider Encounter Details Date Type Department Care Team Description 12/13/2012 Historic Results [facility] Heart Unknown, Doct or, [facility] [address] [place] [address] [address] [place] [phone] Social History Tobacco Use Types Packs/Day Years [...] [address] [place] [address] (Wo rk) 08/16/2022 Office Visit Cardiology Timothy [place] MD [address] [place] [phone] (Wo rk) documented as of this encounter Procedures Procedure Name Priority Date/Time Associated Comments Diagnosis [facility] HISTORICAL Routine 12/13/2012 12:00 AM Resu lts for this RESULTS CDT procedure are i n the results section. documented in this encounter Results [facility] Historical Results (12/13/2012 12:00 AM CDT) P [...] on filedocumented in this encounter Care Teams Vacation Sales Advisor Relationship Specialty Start Date End Date Nas Cardenas MD PCP - General Family Practice 02/01/12 04/12/17 documented as of this encounter
--- OUTSIDE RECORDS SUMMARY | 2022-07-26 10:59 | XMS_ITS | Encounter Summary ---
:1940 Author Organization [place] Address [address] [facility] [place] [address] Care Team Providers Name Role Phone Nas Cardenas MD Primary Care Provider Reason for Referral - Closed Specialty Diagnoses / Procedures Referred By Contact Refer red To Contact Diagnoses Typical atrial flutter (H) Ankur [place] MD [address] [place] [id number] Referral ID Status Reason Start Date Expiration Date Visits Requ ested Visits Authorized [id number] Closed 12/19/2017 12/19/2018 1 1 Reason for Visit Reason Comments Atrial Fib yearly f/u - Closed Specialty Diagnoses / Procedures Referred By Contact Refer red To Contact Ankur [place] MD [address] [place] [id number] Referral ID Status Reason Start Date Expiration Date Visits Requ ested Visits Authorized [id number] Closed 12/10/2015 06/07/2016 1 1 Encounter Details Date Type Department Care Team Description 12/20/2015 Office Visit [facility] Ankur Smtih MD Benign essential hypertension (Primary D x); [facility] [place] [address] Typical atrial flutter (H) [address] [facility] [address] [facility] [address] [place] [address] [place] [phone] Social History Tobacco Use Types Packs/Day Years [...] CDT December 20, 2015 [place] [address] RE: Radha Farooq : [address] [...] first-degree AV block with a relatively long [place] interval. ASSESSMENT AND RECOMMENDATIONS: Mr. Farooq is doing reasonably well. His angina is occasional and infrequent. I agree for him to use nitroglycerin. However, if the angina frequency increases, we may have to repeat coronary angiography. His last coronary angiography was in 2011. He is known to have normal LV function. Based on his very long [place] interval, I have asked him to change [...] MT: Name: RADHA FAROOQ MRN: [id number] Account: [id number] : 1940 Service Date: 12/20/2015 Document: [id number] Ankur [place] MD - 12/20/2015 10:15 AM CDT HPI and Plan: See dictation Orders Placed This Encounter Procedures ??? Follow-Up with Cardiac Advanced Practice Provider ??? Follow-Up with Expert Medical Writer ??? EKG 12-lead complete w/read - Clinics [...] [address] [place] [address] documented in this encounter Plan of Treatment Upcoming Encounters Date Type Specialty Care Team Description 08/16/2022 Ancillary Procedure Cardiology Ankur [place] MD [address] [place] [phone] (Wo rk) 08/16/2022 Office Visit Cardiology Ankur Smith MD [address] [place] [phone] (Wo rk) Scheduled Referrals Name Type Priority Associated Diagnoses Order S chedule Follow-Up with Referral Routine Typical atrial Expected: Expert Medical Writer flutter (H) 12/20/19 18 (Approximate), Expires: 05/03/2018 [...] flutter documented in this encounter Care Teams Building Dismantler Relationship Specialty Start Date End Date Nas Cardenas MD PCP - General Family Practice 02/01/12 04/12/17 documented as of this encounter
--- OUTSIDE RECORDS SUMMARY | 2022-07-26 10:59 | XMS_ITS | Encounter Summary ---
:1940 Author Organization [place] Address [address] [place] [address] Care Team Providers Name Role Phone Nas Cardenas MD Primary Care Provider Encounter Details Date Type Department Care Team Description [facility] RN (Primary Dx) Heart Care [address] [place] [place] [phone] Social History Tobacco Use Types Packs/Day Years [...] [address] [place] [phone] (Wo rk) 08/16/2022 Office Visit Cardiology Timothy [place] MD [address] [place] [phone] (Wo rk) documented as of this encounter Visit Diagnoses Diagnosis Atrial flutter (H) - Primary Atrial flutter documented in this encounter Care Teams Prep Person Relationship Specialty Start Date End Date Nas Cardenas MD PCP - General Family Practice 02/01/12 04/12/17 documented as of this encounter
--- OUTSIDE RECORDS SUMMARY | 2022-07-26 10:59 | XMS_ITS | Encounter Summary ---
:1940 Author Organization [place] Address [address] [place] [address] Care Team Providers Name Role Phone Nas [place] MD Primary Care Provider Graham Licona MD Primary Care Provider [facility] Primary Care Provider Slava Hernandez-C Primary Care Provider Timothy Smith MD Unavailable Graham Licona MD Primary Care Provider Encounter Details Date Type Department Care Team Description 02/10/2013 Office Visit-[facility] Heart Rafael Smith MD [address] [place] [address] [place] [address] [phone] Social History Tobacco Use Types Packs/Day Years [...] old Referring Physician: NAS COLEMAN Referring Clinic: [facility] CURRENT DIAGNOSES 1. - Hyperlipidemia, [...] in another institution. The patient presented to [facility] last year with chest pain. He [...] plan. Subsequently he went to [facility] and underwent a DC cardioversion. Apparently, [...] [address] [place] [phone] (Wo rk) 08/16/2022 Office Visit Cardiology Timothy Smith MD [address] [place] [phone] (Fiorella rk) documented as of this encounter Visit Diagnoses Not on filedocumented in this encounter Care Teams Manager Pool Relationship Specialty Start Date End Date Nas Coleman, PCP - General Family Practice 02/01/1203/31 Graham Licona MD PCP - General Family Practice 04/13/17 01/15/18 [facility] [address] [place] [address] Vinny Reinoso PCP - General 01/16/18 07/01/18 [place] [address] [place] [phone] Slava Hernandez, PCP - General Physician Marine Welder 07/02/1806/02 PA-C [facility] [address] [place] [address] Graham Licona MD PCP - General Family Medicine 06/30/21 [facility] [address] [place] [address] Timothy Smith MD Assigned Heart and 07/23/20 [address] [place] Vascular Provider [address] [place] [phone] documented as of this encounter
--- OUTSIDE RECORDS SUMMARY | 2022-07-26 10:59 | XMS_ITS | Encounter Summary ---
:1940 Author Organization [place] Address [facility] [place] [address] Care Team Providers Name Role Phone Herminia [place] MD Primary Care Provider Graham Licona MD Primary Care Provider [facility] Primary Care Provider [phone] Slava Hernandez PA-C Primary Care Provider Timothy Smith MD Unavailable Graham Licona MD Primary Care Provider Encounter Details Date Type Department Care Team Description 09/12/2013 Office Visit-[facility] Carmen Montenegro [facility] [place] Torres PA-C [address] [facility] [address] [facility] [address] [facility] [address] [place] [address] [place] [phone] Social History Tobacco Use Types Packs/Day Years [...] old Referring Physician: HERMINIA COLEMAN Referring Clinic: [facility] CURRENT DIAGNOSES 1. - Hyperlipidemia, 272.4 2. - Hypertension, 401.1 3. [place]-Recent Unspecified, 410.91 4. - CAD, 414.00 5. [...] 2013. He saw Dr. Smith, his primary fabric worker, in May, at which time he was [...] walking in a big store, such as [employer]. He does workout at [employer] three times weekly and states he has [...] tablet, 1 p.o. twice daily, #180 (One [place] Eighty) MEDICATIONS STOPPED TODAY: losartan 25 mg [...] [address] [place] [address] (Wo rk) 08/16/2022 Office Visit Cardiology Timothy Smith MD [address] [place] [address] (Wo rk) documented as of this encounter Visit Diagnoses Not on filedocumented in this encounter Care Teams Radon Inspector Relationship Specialty Start Date End Date Herminia Coleman, PCP - General Family Practice 02/01/1203/31 Graham Licona MD PCP - General Family Practice 04/13/17 01/15/[address] [facility] [address] [place] [address] Vinny Reinoso PCP - General 01/16/18 07/01/18 [place] [address] [place] [address] Slava Hernandez, PCP - General Physician Psychological Anthropologist 07/02/1806/02 PA-C [facility] [address] [place] [address] Graham Licona MD PCP - General Family Medicine 06/30/21 [facility] [address] [place] [address] Timothy Smith MD Assigned Heart and 07/23/20 [address] Vascular Provider [address] [place] [address] documented as of this encounter
--- OUTSIDE RECORDS SUMMARY | 2022-07-26 10:59 | XMS_ITS | Encounter Summary ---
:1940 Author Organization [place] Address [address] [place] [address] Care Team Providers Name Role Phone Nas Cardenas MD Primary Care Provider Encounter Details Date Type Department Care Team Description 02/27/2013 Hospital Encounter [facility] Timothy Smith MD Atrial flutter (H) [facility] [address] (Primary D x) [address] [place] [address] [place] [phone] Social History Tobacco Use Types Packs/Day Years [...] 5:26 PM CDT 1. See an EP TABLE TENDER in 1 month, with ECG 2. See [...] beats should occur less often. Questions? Call [facility] Physician Heart at [phone]. documented in this encounter Medications at Time [...] was discharged at 1909 per W/C with milk delivery driver. documented in this encounter H&P Notes Timothy [place] MD - 02/26/2013 2:35 PM CDT documented in this encounter Plan of Treatment Upcoming Encounters Date Type Specialty Care Team Description 08/16/2022 Ancillary Procedure Cardiology Timothy Smith MD [address] [place] [phone] (Wo rk) 08/16/2022 Office Visit Cardiology Timothy Smith MD [address] [place] [phone] (Wo rk) documented as of this encounter [...] 12-lead, tracing only (02/27/2013 2:47 PM CDT) [facility] Method Time Signature Interpretation ECG Click [...] 12-lead, tracing only (02/27/2013 12:40 PM CDT) [facility] Method Time Signature Interpretation ECG Click View RADIOLOGY Image link RESULTS to view waveform and result Specimen (Source) Anatomical Collection Method Collection Time Re ceived Time Location / / Volume Laterality 02/27/2013 12:40 PM CDT Timothy [place] MD ECG ORDERABLES Performing Organization Address City/State/ZIP Code Phon e Number RADIOLOGY RESULTS (ABNORMAL) INR (02/27/2013 11:45 AM CDT) athologist [facility] INR 2.66 (H) 0.86 - 1.14 [facility] Specimen Anatomical Collection Method Collection Time Receive d Time (Source) Location / / Volume Laterality Blood specimen 02/27/2013 11:45 3 (specimen) AM CDT 11:54 AM CDT Timothy Smith MD LAB - BLOOD ORDERABLES Performing Organization Address City/State/ZIP Code Phon e Number [facility] [address] [place] [address] [phone] [facility] CBC with platelets (02/27/2013 11:45 AM CDT) athologist Signature WBC 6.0 4.0 - 11.0 [place] 10e9/L [facility] RBC Count 4.89 4.4 - 5.9 [place] 10e12/L [facility] Hemoglobin 15.6 13.3 - [facility] 17.7 g/dL [facility] Hematocrit 46.4 40.0 - [facility] 53.[facility] % [facility] MCV 95 78 - [address] [facility] MCH 31.9 26.5 - [facility] 33.[address] [facility] MCHC 33.6 31.5 - [facility] 36.5 g/dL [facility] RDW 14.0 10.0 - [place] 15.0 % [facility] Platelet Count 191 150 - 450 [place] 10e9/L [facility] Specimen Anatomical Collection Method Collection Time Receive d Time (Source) Location / / Volume Laterality Blood specimen 02/27/2013 11:45 3 (specimen) AM CDT 11:54 AM CDT Timothy Smith MD LAB - BLOOD ORDERABLES Performing Organization Address City/State/ZIP Code Phon e Number [facility] [address] [place] [address] [facility] (ABNORMAL) Basic metabolic panel (02/27/2013 11:45 AM CDT) P athologist Signature Sodium 139 133 - 144 [place] mmol/L [facility] Potassium 4.3 3.4 - 5.3 [place] mmol/L [facility] Chloride 102 94 - 109 [place] mmol/L [facility] Carbon Dioxide 24 20 - 32 [place] mmol/L [facility] Anion Gap 12 6 - 17 [place] mmol/L [facility] Glucose 183 (H) 60 - 99 [place] mg/dL [facility] Urea Nitrogen 20 7 - 30 [place] mg/dL [facility] Creatinine 0.79 0.66 - [facility] 1.25 mg/dL [facility] GFR Estimate >90 >60 [place] mL/min/1.[address] LAB GFR Estimate If >90 >60 [facility] Black mL/min/1.[address] LAB Calcium 8.7 8.5 - 10.4 [place] mg/dL [facility] Specimen Anatomical Collection Method Collection Time Receive d Time (Source) Location / / Volume Laterality Blood specimen 02/27/2013 11:45 3 (specimen) AM CDT 11:54 AM CDT Timothy Smith MD LAB - BLOOD ORDERABLES Performing Organization Address City/State/ZIP Code [facility] e Number [facility] [address] [place] [address] [facility] documented in this encounter Visit [...] Intra-procedure documented in this encounter Care Teams Supervisor Briar Shop Relationship Specialty Start Date End Date Nas Cardenas MD PCP - General Family Practice 02/01/12 04/12/17 documented as of this encounter
--- OUTSIDE RECORDS SUMMARY | 2022-07-26 10:59 | XMS_ITS | Encounter Summary ---
:1940 Author Organization [place] Address [address] [place] [address] Care Team Providers Name Role Phone Nas Cardenas MD Primary Care Provider Reason for Referral - Closed Specialty Diagnoses / Procedures Referred By Contact Refer red To Contact Ankur [place] MD [address] [place] [address] Referral ID Status Reason Start Date Expiration Date Visits Requ ested Visits Authorized [id number] Closed 12/10/2015 06/07/2016 1 1 Reason for Visit Reason Comments Annual Visit feeling well - ekg done Encounter Details Date Type Department Care Team Description 12/10/2014 Office Visit [facility] Ankur [place] MD Atrial flutter (H) [facility] [place] [address] (Primary Dx) 6[address] [facility] [address] [facility] [address] [place] [address] [place] [phone] Social History Tobacco Use Types Packs/Day Years [...] CDT December 10, 2014 Nas Cardenas MD [facility] [id number] [place], [place] [id number] RE: Radha Villa : [address] [...] right eye melanoma. He got treatment at [facility] and has had some impaired vision of [...] MANDIE Name: RADHA VILLA MRN: [id number] Account: [id number] : 1940 Service Date: 12/10/2014 Document: [id number] Ankur [place] MD - 12/10/2014 2:26 PM [...] [address] [place] [address] (Wo rk) 08/16/2022 Office Visit Cardiology Ankur [place] MD [address] [place] [address] (Wo rk) Scheduled Referrals Name Type Priority Associated Diagnoses Order S chedule Follow-Up with Referral Routine Atrial Flutter (H) Expecte d: Sociology Teacher 12/10/19 16 (Approximate), Expires: 04/23/2016 documented as [...] flutter documented in this encounter Care Teams Forensic Sergeant Relationship Specialty Start Date End Date Nas Cardenas MD PCP - General Family Practice 02/01/12 04/12/17 documented as of this encounter
--- OUTSIDE RECORDS SUMMARY | 2022-07-26 10:59 | XMS_ITS | Encounter Summary ---
:1940 Author Organization [facility] Address [address] [place] [address] Care Team Providers Name Role Phone Nas Cardenas MD Primary Care Provider Encounter Details Date Type Department Care Team Description 02/27/2013 Historic Results [facility] Heart Unknown, [facility] [place] [address] [place] [phone] Social History Tobacco Use Types Packs/Day Years [...] [address] [place] [id number] (Wo rk) 08/16/2022 Office Visit Cardiology Timothy Smith MD [address] [place] [id number] (Wo rk) documented as of this encounter [...] filedocumented in this encounter Care Teams Entertainment Dancer Relationship Specialty Start Date End Date Nas Cardenas MD PCP - General Family Practice 02/01/12 04/12/17 documented as of this encounter
--- NOTE | 2022-07-26 11:00 | CRLHL7_ITS ---
For Patients: As a result of the Century Cures Act, medical imaging exams and procedure reports are released immediately into your electronic medical record. You may view this report before your referring provider. If you have questions, please contact your health care provider. INDICATION: Bladder Mass TECHNIQUE: CT abdomen and pelvis urogram without and with 125 cc Isovue 370 intravenous contrast. Contrast images were obtained in the nephrographic and delayed phases. COMPARISON: Ultrasound 06/06/2022. CT 07/09/2017 FINDINGS: KIDNEYS: The unenhanced images demonstrate no kidney or ureteral stones. The kidneys are normal in caliber and demonstrate normal uptake and excretion of IV contrast. Multiple simple renal cortical cysts are noted. Stable hemorrhagic or proteinaceous cysts arising from the lower pole of the left kidney. 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 The renal collecting systems and ureters are symmetrical, normal in caliber, and without evidence of mass or filling defect. URINARY BLADDER: The prostate is enlarged with lobular mass effect upon the inferior bladder wall. This accounts for the sonographic findings. No bladder wall thickening or bladder calculus. OTHER: Sequela of granulomatous disease with calcified pulmonary nodules in the right lower lobe, calcified splenic granulomas and calcified hepatic granulomas. Cardiomegaly. Atrophy of the pancreas. Adrenal glands normal. Gallbladder absent. No biliary obstruction. Bibasilar fibrosis. No adenopathy. No bowel obstruction. Normal appendix. Chronic right lateral upper abdominal hernia measuring 3.9 cm. Small hernia also present within the right lateral mid abdominal wall containing a small amount of fluid measuring 2.4 cm. Right hip replacement hardware. No fracture. Degenerative changes. IMPRESSION: 1. Prostatomegaly with lobular mass effect upon the bladder. No hydronephrosis. No renal, ureteral or bladder stone. 2. Multiple simple and hemorrhagic/proteinaceous renal cysts bilaterally and incidental angiomyolipoma left kidney, unchanged from prior. 3. Right lateral abdominal wall hernia defects. Please note that all CT scans at this facility use dose modulation, iterative reconstruction, and/or weight-based dosing when appropriate to reduce radiation dose to as low as reasonably achievable. Dictated by Bear Reeder MD @ 07/26/2022 12:09:35 PM (Electronically Signed)
--- OUTSIDE RECORDS SUMMARY | 2022-07-26 11:00 | XMS_ITS | Encounter Summary ---
:1940 Author Organization [place] Address [facility] [place] [address] Care Team Providers Name Role Phone Nas Cardenas MD Primary Care Provider Reason for Visit Reason Comments Chest Pain awoke with pain at 0600 05/10 Auth/Cert - Closed Specialty Diagnoses / Procedures Referred By Contact Refer red To Contact Intensive Care Diagnoses Unstable angina (H) [facility] [address] [place] [address] Phone: Fax: Referral ID Status Reason Start Date Expiration Date Visits Requ ested Visits Authorized [id number] Closed 02/01/2012 07/30/2012 1 1 Encounter Details Date Type Department Care Team Description 02/01/2012 - [facility] [address] [place], [place] [id number] Unstable angina (H); 02/04/2012 Encounter [facility] Jayy Gill MD [address] [place] [address] HTN (hypertension); Surgical Atrial flutter (H) [address] [place] [address] Social History Tobacco Use Types [...] on 02/02/2012 which showed that the old kaibab vessels proximally occluded but the SVGs remain [...] on 02/02/2012. The angiogram showed the old kaibab vessels proximally occluded but the SVGs remain [...] MD MT: #[id number] Name: RADHA FAROOQ Account: [id number] : 1940 Admit Date: Discharge Date: Document: [id number] cc: Nas Cardenas MD documented in this [...] any questions that you may have.] ?? [phone] [place] [address]. All rights reserved. This information is not [...] Extreme drowsiness, confusion, dizziness or fainting ?? [phone] [facility], [address] [place] [address], [place] [address]. All rights reserved. This information is not [...] any questions that you may have.] ?? [phone] [facility], [address] [place] [address], [place] [address]. All rights reserved. This information is not [...] and Plan: A: 1)stable cardiac condition 2)S/P FL 3)Hypertension-improved control 4)atrial flutter-reasonable heart rate control [...] Transfer Skill: Sit to Stand Level of [place]: Sit/Stand independent IADL Evaluation Previous Responsibilities yardwork;medication [...] flutter/sinus rhythm Assessment and Plan: A: 1)S/P FL with elevated troponin 2)atrial flutter with relatively [...] Luevano MD - 02/02/2012 11:38 AM CDT [facility] Cardiology Progress Note Problem List: Patient [...] Gill MD - 02/01/2012 2:41 PM CDT [facility] Hospitalist Admission Note Name: Radha Farooq [...] study night of: 02/02/2012. Study running from 2479 to 0522. (See attached graphics in paper chart) This [...] VAZQUEZ MD MT: Name: RADHA FAROOQ Account: [id number] : 1940 Procedure Date: 02/02/2012 Document: [id number] Umair Alves MD - 02/02/2012 2:58 PM [...] needle, and with Seldinger technique, a 6 Icelandic sheath placed in the right radial artery. We gave no additional units of heparin since his heparin was stopped upon arrival in cathead operator. We gave 2.5 mg of verapamil and [...] to cannulate the SVG to RCA 2) [place] CAG The [place] RCA was cannulated with a 5Fr Manas catheter and the LMCA was cannulated with a 6Fr JL4. Orthogonal views were performed. 2. Left heart catheterization. We exchanged for z1Ehvrlo pigtail catheter. This catheter was advanced under [...] to moderate D1 fills via ipsicollaterals from kaibab LAD via injection of SVG. There is [...] a retrograde fashion via injection of the kaibab RCA. There is no significant narrowing in [...] to the distal anastamotic site. 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 I have explained to the patient the risks of , FL, stroke, hematoma, possible urgent bypass surgery for [...] he had a very similar presentation in [place], in [place], at the [facility], and underwent cardiac catheterization and was told [...] in 1985 with a 4-vessel bypass at [facility]. He has not had any further angiography [...] #[id number] Name: RADHA FAROOQ MRN: [id number] Account: [id number] : 1940 Consult Date: 02/01/2012 Document: [id number] José Luevano MD - 02/01/2012 4:48 PM [...] patient prior to being taken to the cathead operator tomorrow morning. documented in this encounter ED [...] Individualization/Patient-Specific Goal (Adult,OB,Behavioral The patient and/or their personnel representative will achieve their patient-specific goals related to the plan of care. The patient-specific goals include: RN: reviewed discharge and medication listing with patient and . Provided Lovenox teaching, warfarin teaching, and provided educational materials regarding Lisinopril, metoprolol, lovenox, and warfarin. Patients prescriptions were faxed to [facility]. Patient awaiting staff to bring to car by wheel chair for transport home by /POV at 1541 hours. Denies dizziness, SOB, or pain. Pt ambulated hallways several times with hospital staff/tolerated well with no SOB, dizziness, pain. Plan of Care - Kimberly Nur RN - 02/04/2012 5:42 AM CDT Problem: IP GENERAL POC-ADULT,OB,BEHAVIORAL FVCPM Goal: Individualization/Patient-Specific Goal (Adult,OB,Behavioral The patient and/or their personnel representative will achieve their patient-specific goals related to the plan of care. The patient-specific goals include: Outcome: Improving Pt rested well throughout night. VSS. No c/o CP/discomfort. Tele Aflutter with CVR, but looks like SR at times. Angio done and 01/31. Sheath site on L arm with dressing that is CDI. Cardio following. Plan for possible ablation at [facility]. Will continue to monitor. Plan of Care - Sulema Sexton RN - 02/03/2012 10:53 PM CDT Problem: IP GENERAL POC-ADULT,OB,BEHAVIORAL FVCPM Goal: Individualization/Patient-Specific Goal (Adult,OB,Behavioral The patient and/or their personnel representative will achieve their patient-specific goals related [...] Occupational Therapy Goals The patient and/or their personnel representative will achieve their patient-specific goals related [...] and scheduling cardiac rehab. Pt lives in [place] so stated he didn't want to have [...] physical activity to decrease risk of another FL.. DC from cardiac OT Plan of Care - Sharla Veloz RN - 02/03/2012 2:46 PM CDT Problem: IP GENERAL POC-ADULT,OB,BEHAVIORAL FVCPM Goal: Individualization/Patient-Specific Goal (Adult,OB,Behavioral The patient and/or their personnel representative will achieve their patient-specific goals related to the plan of care. The patient-specific goals include: Outcome: No Change Bp elevated this afternoon, 150-180/100-113. Tele was sr until 1015 when pt went into aflutter/fib. Pt denies pain, sob, chest pain. Cms intact in ue's. Pt denies numbness/tingling. Pt up to br multiples without problems. Pt transferred to [facility] tele. Plan of Care - Sharla Veloz RN - 02/03/2012 2:16 PM CDT Report called to Chitra EL on [facility] tele. Provider Notification - Sharla Veloz RN [...] Individualization/Patient-Specific Goal (Adult,OB,Behavioral The patient and/or their personnel representative will achieve their patient-specific goals related [...] [address] [place] [id number] (Wo rk) 08/16/2022 Office Visit Cardiology Timothy Smith MD [address] [place] [id number] (Wo rk) Pending Results Name Type Priority [...] study night of: 02/02/2012. Study running from 2209 to 1023. (See attached graphics in paper chart) This [...] response to desaturations. JULIANNA VAZQUEZ MD MT: rh Name: RADHA FAROOQ Account: [id number] : 1940 Procedure Date: 02/02/20 12 Document: [id number] Julianna Vazquez MD PFT ORDERABLES (ABNORMAL) Glucose by meter (02/04/2012 11:34 AM CDT) P athologist Signature Glucose 130 (H) 60 - 99 POINT OF CARE mg/dL TEST, GLUCOSE Specimen Anatomical Collection Method Collection Time Receive d Time (Source) Location / / Volume Laterality 02/04/2012 11:34 02/04/2012 AM CDT 11:50 AM CDT Jayy LAGUNAS - BEAKER POCT Performing Organization Address [facility]/ZIP [facility] Phon e Number FV POINT OF CARE [...] LAGUNAS - LIYA POCT Performing Organization Address [facility] Phon e Number FV POINT OF CARE TEST, GLUCOSE POINT OF CARE TEST, GLUCOSE (ABNORMAL) INR (02/04/2012 6:18 AM CDT) athologist [facility] INR 1.15 (H) 0.86 - 1.14 [facility] Specimen Anatomical Collection Method Collection Time Receive d Time (Source) Location / / Volume Laterality Blood specimen 02/04/2012 6:18 AM 012 6:31 (specimen) CDT AM CDT Jayy Gill MD LAB - BLOOD ORDERABLES Performing Organization Address [facility] Phon e Number M [facility] [address] [place], [place] [address] [facility] CBC (AM Draw) (02/04/2012 6:18 AM CDT) athologist Signature WBC 7.7 4.0 - 11.0 [place] 10e9/L [facility] RBC Count 4.90 4.4 - 5.9 [place] 10e12/L [facility] Hemoglobin 15.7 13.3 - [place] 17.7 g/dL [facility] Hematocrit 47.1 40.0 - [place] 53.0 % [facility] MCV 96 78 - 100 [place] fl [facility] MCH 32.0 26.5 - [facility] 33.0 pg [facility] MCHC 33.3 31.5 - [facility] 36.5 g/dL [facility] RDW 14.1 10.0 - [facility] 15.0 % [facility] Platelet Count 152 150 - 450 [place] 10e9/L [facility] Specimen Anatomical Collection Method Collection Time Receive d Time (Source) Location / / Volume Laterality Blood specimen 02/04/2012 6:18 AM 012 6:31 (specimen) CDT AM CDT Jayy Gill MD LAB - BLOOD ORDERABLES Performing Organization Address City/State/ZIP Code Phon e Number M [address] [facility] (ABNORMAL) Basic metabolic panel (02/04/2012 6:18 AM CDT) athologist Signature Sodium 142 133 - 144 [place] mmol/L [facility] Potassium 4.1 3.4 - 5.3 [place] mmol/L [facility] Chloride 101 94 - 109 [place] mmol/L [facility] Carbon Dioxide 30 20 - 32 [place] mmol/L [facility] Anion Gap 11 6 - 17 [place] mmol/L [facility] Glucose 119 (H) 60 - 99 [place] mg/dL [facility] Urea Nitrogen 14 7 - 30 [place] mg/dL [facility] Creatinine 0.68 0.66 - [facility] 1.25 mg/dL [facility] GFR Estimate >90 >60 [place] mL/min/[address] [place] [address] LAB GFR Estimate If >90 >60 [place] Black mL/min/1.[address] [place] [address] LAB Calcium 8.8 8.5 - 10.4 [place] mg/dL [facility] Specimen Anatomical Collection Method Collection Time Receive d Time (Source) Location / / Volume Laterality Blood specimen 02/04/2012 6:18 AM 012 6:31 (specimen) CDT AM CDT Jayy Gill MD LAB - BLOOD ORDERABLES Performing Organization Address City/State/ZIP Code Phon e Number [facility] [address] [place], [place] [address] [facility] (ABNORMAL) Glucose by meter (02/03/2012 8:41 PM CDT) P athologist Signature Glucose 146 (H) 60 - 99 POINT OF CARE mg/dL TEST, GLUCOSE Specimen Anatomical Collection Method Collection Time Receive d Time (Source) Location / / Volume Laterality 02/03/2012 8:41 PM 2 8:50 CDT PM CDT Jayy LAGUNAS - BEAKER POCT Performing Organization Address City/[facility]/ZIP Code Phon e Number FV POINT OF CARE TEST, GLUCOSE POINT OF CARE TEST, GLUCOSE Methicillin Resistant Staph Aureus PCR (02/03/2012 8:25 PM CDT) Component Value Ref Test Analysis Performed At Patholo gist Range Method Time Signature Specimen [facility] Methicillin MRSA Negative: SA Negative ? ?MRSA and Staphylococcus aureus target DNA not [facility] Resist/Sens S. detected, presumed negative for MRSA and SA colonization or the number of MICROBIOLOGY aureus PCR bacteria present may be bel ow the limit of detection for the assay. FDA approved assay performed using [employer] GeneXpert(R) real-ti me PCR. Specimen (Source) Anatomical Collection Method Collection Time Re ceived Time Location / / Volume Laterality Nasal structure 02/03/2012 8:25 2 9:02 (body structure) PM CDT PM CDT Jeffrey Stallworth MD LAB - MICRO GENERAL ORDERABL ES Performing Organization Address City/[facility]/ZIP Code Phon e Number [address] [address] [facility] MICROBIOLOGY (ABNORMAL) Glucose by meter (02/03/2012 6:08 PM CDT) P athologist Signature Glucose 163 (H) 60 - 99 POINT OF CARE mg/dL TEST, GLUCOSE Specimen Anatomical Collection Method Collection Time Receive d Time (Source) Location / / Volume Laterality 02/03/2012 6:08 PM 2 6:25 CDT PM CDT Jayy LAGUNAS - BEAKER POCT Performing Organization Address City/[facility]/ZIP Code Phon e Number FV POINT OF [...] - BEJOHN PAUL POCT Performing Organization Address [facility] Phon e Number FV POINT OF CARE [...] LAGUNAS - LIYA POCT Performing Organization Address [facility] Phon e Number FV POINT OF CARE [...] RESULTS QTc 414 ms RADIOLOGY RESULTS P [place] 69 degrees RADIOLOGY RESULTS R AXIS 1 degrees RADIOLOGY RESULTS T [place] 117 degrees RADIOLOGY RESULTS Interpretation Sinus rhythm [...] RESULTS QTc 414 ms RADIOLOGY RESULTS P [place] 75 degrees RADIOLOGY RESULTS R AXIS 3 degrees RADIOLOGY RESULTS T [place] 126 degrees RADIOLOGY RESULTS Interpretation Sinus rhythm [...] Gill MD ECG ORDERABLES Performing Organization Address City/[facility]/ZIP Code Phon e Number RADIOLOGY RESULTS (ABNORMAL) Platelet count (02/03/2012 5:50 AM CDT) P athologist Signature Platelet Count 140 (L) 150 - 450 [place] 10e9/L [facility] Specimen Anatomical Collection Method Collection Time Receive d Time (Source) Location / / Volume Laterality Blood specimen 02/03/2012 5:50 AM 012 5:58 (specimen) CDT AM CDT Sabino Lujan [facility] LAB - BLOOD ORDERABLES Performing Organization Address City/[facility]/ZIP Code Phon e Number [facility] [address] [place] [address] [facility] INR (02/03/2012 5:50 AM CDT) athologist Signature INR 1.09 0.86 - 1.14 [facility] Specimen Anatomical Collection Method Collection Time Receive d Time (Source) Location / / Volume Laterality Blood specimen 02/03/2012 5:50 AM 012 5:58 (specimen) CDT AM CDT José Luevano MD LAB - BLOOD ORDERABLES Performing Organization Address City/[facility]/ZIP Code Phon e Number M [facility] [address] [place], [place] [address] [facility] ECG - HIM ECG Scan (02/03/2012) [...] LAGUNAS - BEAKER POCT Performing Organization Address City/[facility]/ZIP Code Phon e Number FV POINT OF [...] - BEJOHN PAUL POCT Performing Organization Address City/[facility]/ZIP [facility] Phon e Number FV POINT OF CARE TEST, GLUCOSE POINT OF CARE TEST, GLUCOSE INR (02/02/2012 4:30 PM CDT) athologist Signature INR 1.05 0.86 - 1.14 [facility] Specimen Anatomical Collection Method Collection Time Receive d Time (Source) Location / / Volume Laterality Blood specimen 02/02/2012 4:30 PM 012 4:43 (specimen) CDT PM CDT Sabino Lujan [facility] LAB - BLOOD ORDERABLES Performing Organization Address City/State/ZIP Code Phon e Number M [facility] [address] [place], [place] [address] [facility] Heart Cath Left heart cath (02/02/2012 3:32 PM CDT) Anatomical Region Laterality Modality Other Specimen (Source) Anatomical Collection Method Collection Time Re ceived Time Location / / Volume Laterality 02/02/2012 3:32 PM CDT Impressions 02/03/2012 10:17 AM CDT RADHA FAROOQ PROCEDURES PERFORMED: 1. ??Left internal mammary angiogram. 2. ??Saphenous venous bypass graft angio graphy. 3. ??[place] coronary angiography. 4. ??Left heart catheterization. 5. [...] and with Seldinger techniqu e, a 6 Icelandic sheath placed in the left radial artery. ??We gave 2.5 mg of verapamil and 400 mcg nitroglycerin intra-arterially. ??The jose francisco lawrence had just been on a heparin drip, and we did not give him an y additional heparin as it had been stopped on admission here to e lab. ??We advanced a 4 Icelandic left internal mammary catheter an d seated [...] angiography was performed in orthogonal views. 3. ??[place] coronary angiogram. ??We use d a 5 Icelandic Manas catheter to cannulate the ostium of the right fung ry artery. ??Right coronary angiography was performed in orthogonal views. ??We later exchanged for first a JL4 4 Icelandic and then finall y a JL4 6 Icelandic catheter which allowed us to seat in [...] vessel. ??There is filling of both septal news camera operator bra nches and a small to moderate-sized [...] narrowing distal to the distal anastomotic site. [place] coronary arteries: 1. ??The kaibab left main: ??This vessel of occluded in [...] small terminal marginal branch system. ?? 3. ??[place] right coronary artery: ??Thi s is a dominant vessel. ??It has a proximal 85-90% narrowing. ??There is competitive filling seen in the mid and distal right coronary with i njection of the kaibab right coronary artery from the patent bypass g raft. ??The right coronary distal to the distal anastomotic site of the bypass graft has no significant narrowing. 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 severely [...] CDT Jayy NICKERSON POCT Performing Organization Address City/[facility]/ZIP Code Phon e Number FV POINT OF [...] CDT Jayy NICKERSON POCT Performing Organization Address City/[facility]/ZIP [facility] Phon e Number FV POINT OF CARE TEST, GLUCOSE POINT OF CARE TEST, GLUCOSE TSH (02/02/2012 5:26 AM CDT) athologist Signature TSH 1.64 0.4 - 5.0 [facility] LAB Specimen Anatomical Collection Method Collection Time Receive d Time (Source) Location / / Volume Laterality 02/02/2012 5:26 AM 2 5:41 CDT AM CDT Jayy Gill MD LAB - BLOOD ORDERABLES Performing Organization Address City/[facility]/ZIP [facility] Phon e Number M [facility] [address] [place], [place] [address] [facility] Heparin Xa (10a) Level (02/02/2012 5:26 AM CDT) athologist Signature Heparin 10A 0.20 IU/mL [facility] Comment: Therapeutic Range: ?? UFH: ?? [...] Address City/State/ZIP Code Phon e Number M [facility] [address] [place] [address] [facility] (ABNORMAL) Basic metabolic panel (02/02/2012 5:26 AM CDT) Analysis Performed At Patho logist Time Signature Sodium 139 133 - 144 [place] mmol/L [facility] Potassium 4.1 3.4 - 5.3 [place] mmol/L [facility] Chloride 101 94 - 109 [place] mmol/L [facility] Carbon Dioxide 27 20 - 32 [place] mmol/L [facility] Anion Gap 10 6 - 17 [place] mmol/L [facility] Glucose 140 (H) 60 - 99 [place] mg/dL [facility] Urea Nitrogen 16 7 - 30 [place] mg/dL [facility] Creatinine 0.59 (L) 0.66 - [facility] 1.25 mg/dL [facility] GFR Estimate >90 >60 [place] mL/min/1.[address] LAB GFR Estimate If >90 >60 [place] Black mL/min/1.[address] LAB Calcium 8.7 8.5 - 10.4 [place] mg/dL [facility] Specimen Anatomical Collection Method Collection Time Receive d Time (Source) Location / / Volume Laterality Blood specimen 02/02/2012 5:26 AM 012 5:41 (specimen) CDT AM CDT Jayy Gill MD LAB - BLOOD ORDERABLES Performing Organization Address [facility] Phon e Number K[facility] [address], [place] [address] [facility] (ABNORMAL) Hemoglobin A1c (02/02/2012 5:26 AM CDT) P athologist Signature Hemoglobin A1C 6.6 (H) 4.3 - 6.0 [facility] LAB Specimen Anatomical Collection Method Collection Time Receive d Time (Source) Location / / Volume Laterality Blood specimen 02/02/2012 5:26 AM 012 5:41 (specimen) CDT AM CDT Jayy Gill MD LAB - BLOOD ORDERABLES Performing Organization Address [facility] Phon e Number [place] [address] [place], [place] [address] [facility] (ABNORMAL) Troponin I - every 6 hours x 4 (02/02/2012 5:26 AM CDT) Analysis Performed At Patho logist Time Signature Troponin I ES 5.030 (HH) 0.000 - [place] 0.034 ug/L [facility] Comment: Critical Value called to and read back sam MICHELE (ICU) ON 5.4.12 AT 0615 BY EK Specimen Anatomical Collection Method Collection Time Receive d Time (Source) Location / / Volume Laterality Blood specimen 02/02/2012 5:26 AM 012 5:41 (specimen) CDT AM CDT Jayy Gill MD LAB - BLOOD ORDERABLES Performing Organization Address [facility]/ZIP [facility] Phon e Number [place] [address] [address] [place], [place] [address] [facility] OXIMETRY COMPREHENSIVE REPORT - HIM Other Scan (02/02/2012) Narrative This result has an attachment that is no t available. Julianna Vazquez MD IP NURSING ACTIVITY (ABNORMAL) Troponin I - every 6 hours x 4 (02/01/2012 11:59 PM CDT) Analysis Performed At Patho logist Time Signature Troponin I ES 4.260 () 0.000 - [place] 0.034 ug/L [facility] Comment: Critical Value called to and read back sam GANN(ICU)ON [id number] @0041 TT Specimen Anatomical Collection Method Collection Time Receive d Time (Source) Location / / Volume Laterality Blood specimen 02/01/2012 11:59 2 (specimen) PM CDT 12:07 AM CDT Jayy Gill MD LAB - BLOOD ORDERABLES Performing Organization Address City/State/ZIP Code Phon e Number M [place] [address] [place] [address] [facility] (ABNORMAL) Glucose by meter (02/01/2012 9:15 [...] P athologist Signature Heparin 10A 0.26 IU/mL [facility] Comment: Therapeutic Range: ?? UFH: ?? [...] LAB - BLOOD ORDERABLES Performing Organization Address [facility] Phon e Number M [facility] [address] [place], [place] [address] [facility] (ABNORMAL) Troponin I - every 6 hours x 4 (02/01/2012 6:30 PM CDT) Analysis Performed At Patho logist Time Signature Troponin I ES 2.330 (HH) 0.000 - [place] 0.034 ug/L [facility] Comment: Critical Value called to and read back sam MCKOY (NEUROPSYCHOLOGY SERVICE DIRECTOR) AT 1900 05.12, TD Specimen Anatomical Collection Method Collection Time Receive d Time (Source) Location / / Volume Laterality Blood specimen 02/01/2012 6:30 PM 012 6:34 (specimen) CDT PM CDT Jayy Gill MD LAB - BLOOD ORDERABLES Performing Organization Address City/[facility] Phon e Number M [facility] [address], [place] [address] [facility] Heparin 10a Level (02/01/2012 6:30 PM CDT) P athologist Signature Heparin 10A 0.30 IU/mL [facility] Comment: Therapeutic Range: ?? UFH: ?? [...] CDT PM CDT Cheng Noelucki [facility] LAB - BLOOD ORDERABLES Performing Organization Address [facility] Phon e Number M [facility] [address] [place], [place] [address] [facility] (ABNORMAL) Glucose by meter (02/01/2012 5:02 PM CDT) athologist Signature Glucose 121 (H) 60 - 99 POINT OF CARE mg/dL TEST, GLUCOSE Specimen Anatomical Collection Method Collection Time Receive d Time (Source) Location / / Volume Laterality 02/01/2012 5:02 PM 2 6:50 CDT AM CDT Jayy [place] MD LAB - BEAKER POCT Performing Organization Address [facility] Phon e Number FV POINT OF CARE TEST, GLUCOSE POINT OF CARE TEST, GLUCOSE (ABNORMAL) Hemoglobin A1c (02/01/2012 3:18 PM CDT) athologist [facility] Hemoglobin A1C 6.7 (H) 4.3 - 6.0 [facility] LAB Specimen Anatomical Collection Method Collection Time Receive d Time (Source) Location / / Volume Laterality Blood specimen 02/01/2012 3:18 PM 012 3:23 (specimen) CDT PM CDT Jayy [place] MD LAB - BLOOD ORDERABLES Performing Organization Address [facility] Phon e Number M [facility] [address] [place], [place] [address] [facility] (ABNORMAL) CBC with platelets (02/01/2012 3:18 PM CDT) athologist Signature WBC 7.6 4.0 - 11.0 [place] 10e9/L [facility] RBC Count 4.71 4.4 - 5.9 [place] 10e12/L [facility] Hemoglobin 15.0 13.3 - [place] 17.7 g/dL [facility] Hematocrit 44.7 40.0 - [place] 53.0 % [facility] MCV 95 78 - 100 [place] fl [facility] MCH 31.8 26.5 - [facility] 33.0 pg [facility] MCHC 33.6 31.5 - [place] 36.5 g/dL [facility] RDW 13.8 10.0 - [place] 15.0 % [facility] Platelet Count 148 (L) 150 - 450 [place] 10e9/L [facility] Specimen Anatomical Collection Method Collection Time Receive d Time (Source) Location / / Volume Laterality Blood specimen 02/01/2012 3:18 PM 012 3:23 (specimen) CDT PM CDT Jayy [place] MD LAB - BLOOD ORDERABLES Performing Organization Address [facility] Phon e Number [facility] [address] [place], [place] [address] [facility] (ABNORMAL) Troponin I - every 6 hours x 4 (02/01/2012 3:18 PM CDT) Analysis Performed At Patho logist Time Signature Troponin I ES 0.912 () 0.000 - [place] 0.034 ug/L [facility] Comment: Critical Value called to and read back sam MCKOY (ICU CHARGE NURSE) AT 1555 05.03.12 , TD Specimen Anatomical Collection Method Collection Time Receive d Time (Source) Location / / Volume Laterality Blood specimen 02/01/2012 3:18 PM 012 3:23 (specimen) CDT PM CDT Jayy [place] MD LAB - BLOOD ORDERABLES Performing Organization Address [facility] Phon e Number [facility] [address] [place], [place] [address] [facility] Echo complete with definity (02/01/2012 2:52 [...] Troponin I ES 0.047 (H) 0.000 - [place] 0.034 ug/L [facility] Comment: The 99th percentile for [...] Organization Address City/State/ZIP Code Phon e Number [place] [address] [place], [place] [address] [facility] EKG 12 lead (02/01/2012 9:51 AM CDT) Component Value Ref Range Test Analysis Performed Pathologis t Method Time At Signature Ventricular Rate 78 BPM RADIOLOGY RESULTS Atrial Rate 78 BPM RADIOLOGY RESULTS MA Interval 178 ms RADIOLOGY RESULTS QRS Duration 136 ms RADIOLOGY RESULTS QT 378 ms RADIOLOGY RESULTS QTc 430 ms RADIOLOGY RESULTS P [place] 77 degrees RADIOLOGY RESULTS R AXIS 3 degrees RADIOLOGY RESULTS T [place] -160 degrees RADIOLOGY RESULTS Interpretation Sinus rhythm [...] RESULTS QTc 504 ms RADIOLOGY RESULTS P [place] 90 degrees RADIOLOGY RESULTS R AXIS 7 degrees RADIOLOGY RESULTS T [place] -121 degrees RADIOLOGY RESULTS Interpretation Atrial flutter [...] Signature Troponin I ES 0.026 0.000 - [place] 0.034 ug/L [facility] Specimen Anatomical Collection Method Collection Time Receive d Time (Source) Location / / Volume Laterality Blood specimen 02/01/2012 8:45 AM 012 9:04 (specimen) CDT AM CDT Stephen Liriano MD LAB - BLOOD ORDERABLES Performing Organization Address City/State/ZIP Code Phon e Number [facility] [address] [place], [place] [address] [facility] (ABNORMAL) Basic metabolic panel (02/01/2012 8:45 AM CDT) Analysis Performed At Patho logist Time Signature Sodium 141 133 - 144 [place] mmol/L [facility] Potassium 4.1 3.4 - 5.3 [place] mmol/L [facility] Chloride 99 94 - 109 [place] mmol/L [facility] Carbon Dioxide 30 20 - 32 [place] mmol/L [facility] Anion Gap 12 6 - 17 [place] mmol/L [facility] Glucose 181 (H) 60 - 99 [place] mg/dL [facility] Urea Nitrogen 20 7 - 30 [place] mg/dL [facility] Creatinine 0.59 (L) 0.66 - [place] 1.25 mg/dL [facility] GFR Estimate >90 >60 [place] mL/min/1.[address] LAB GFR Estimate If >90 >60 [place] Black mL/min/1.[address] LAB Calcium 8.8 8.5 - 10.4 [place] mg/dL [facility] Specimen Anatomical Collection Method Collection Time Receive d Time (Source) Location / / Volume Laterality Blood specimen 02/01/2012 8:45 AM 012 9:04 (specimen) CDT AM CDT Stephen Liriano MD LAB - BLOOD ORDERABLES Performing Organization Address City/State/ZIP Code Phon e Number [place] [address] [place] [address] [facility] CBC with platelets differential (02/01/2012 8:45 AM CDT) [facility] gist Method Time Signature WBC 6.1 4.0 - [place] 11.0 [facility] 10e9/L [facility] RBC Count 4.93 4.4 - 5.9 [place] 10e12/L [facility] Hemoglobin 15.8 13.3 - [place] 17.7 g/dL [facility] Hematocrit 47.0 40.0 - [place] 53.0 % [facility] MCV 95 78 - 100 [facility] LAB MCH 32.0 26.5 - [place] 33.0 pg [facility] MCHC 33.6 31.5 - [place] 36.5 g/dL [facility] RDW 14.0 10.0 - [place] 15.0 % [facility] Platelet Count 161 150 - 450 [place] 10e9/L [facility] Diff Method Automated [facility] % Neutrophils 55.3 40 - 75 % [facility] % Lymphocytes 29.5 20 - 48 % [facility] % Monocytes 9.1 0 - 12 % [facility] % Eosinophils 5.3 0 - 6 % [facility] % Basophils 0.5 0 - 2 % [facility] % Immature 0.3 0 - 0.4 % [place] Granulocytes [facility] Absolute 3.4 1.6 - 8.3 [place] Neutrophil 10e9/L [facility] Absolute 1.8 0.8 - 5.3 [place] Lymphocytes 10e9/L [facility] Absolute 0.6 0.0 - 1.3 [place] Monocytes 10e9/L [facility] Absolute 0.3 0.0 - 0.7 [place] Eosinophils 10e9/L [facility] Absolute 0.0 0.0 - 0.2 [place] [facility] Abs Immature 0.0 0 - 0.03 [place] Granulocytes [address] [place] [address] LAB Specimen Anatomical Collection Method Collection Time Receive d Time (Source) Location / / Volume Laterality Blood specimen 02/01/2012 8:45 AM 012 9:04 (specimen) CDT AM CDT Stephen Liriano MD LAB - BLOOD ORDERABLES Performing Organization Address City/State/ZIP Code Phon e Number [place] [address] [place], [place] [address] [facility] ECG - HIM ECG Scan (02/01/2012) [...] IV for 2 hours prior to cardiac cathead operator procedure, then decrease to 75 mL/hr to [...] Including day before and day of cardiac cathead operator procedure (except if pt. Allergic) if not already given today in ED for patients arriving on day of cardiac cathead operator procedure. Already received total of 325 mg [...] Including day before and day of cardiac cathead operator procedure (except if pt. Allergic) if not already given today in ED for patients arriving on day o f cardiac cathead operator procedure. Already received total of 325 mg [...] 2 TIMES DAILY, First dose o n [place] 02/04/12 at 0900, DO NOT CRUSH. Tablet [...] IV for 2 hours prior to cardiac cathead operator procedure, then decrease to 75 mL/hr to [...] 044 7 (New Bag - Provider: Daly Nowrood RN)0730 (Rate/Dose Verify - Provider: Brian Little, [...] Override documented in this encounter Care Teams Erosion Control Coordinator Relationship Specialty Start Date End Date Nas Cardenas MD PCP - General Family Practice 02/01/12 04/12/17 documented as of this encounter
--- OUTSIDE RECORDS SUMMARY | 2022-07-26 11:00 | XMS_ITS | Encounter Summary ---
:1940 Author Organization [facility] Address [address] [facility] [place] [address] Care Team Providers Name Role Phone Unavailable Primary Care Provider Unavailable Reason for Visit Reason Comments STAFF DEVELOPMENT NURSE - INTRODUCTION [facility] FOR SENIOR MEMBER Encounter Details Date Type Department Care Team Description 11/12/2003 Telephone WALLBACK PHYSICIAN Stephon Stone STAFF DEVELOPMENT NURSE - ASSOCIATES - CARE PHYSICIAN INTRODUCTI ON ([facility] FOR MANA[facility] DEPT [facility]OCIATES SENIOR MEMBER) [address] [place] [address] [place] [address] [place] [phone] Social History Tobacco Use Types Packs/Day Years Used Date Smoking Tobacco: Never Assessed Sex Assigned at Date Recorded Not on file documented as of this encounter Miscellaneous Notes Telephone Encounter - 11/12/2003 11:59 PM PENCIL MAKER >> AMANDA STONE Wed Dec 09, 2003 [...] member, and as follow up to his [facility] score of 0.239. No answer, did not leave a message, will require a return call at a later time. Amanda Stone, SIENNA Case Ma lee MARTINEZ documented in this encounter Plan of Treatment Upcoming Encounters Date Type Specialty Care Team Description 08/16/2022 Ancillary Procedure Cardiology Timothy Smith MD [address] [place] [id number] (Wo rk) 08/16/2022 Office Visit Cardiology Timothy [place] MD [address] [place] [phone] (Wo rk) documented as of this encounter Visit Diagnoses Not on filedocumented in this encounter
--- OUTSIDE RECORDS SUMMARY | 2022-07-26 11:00 | XMS_ITS | Encounter Summary ---
:1940 Author Organization [place] Address [facility] [place] [address] Care Team Providers Name Role Phone Unavailable Primary Care Provider Unavailable Encounter Details Date Type Department Care Team Description 10/13/2004 Operative Report Lesvia Serrato MD (Tight Rope Walker) [facility] RADIATION O NCOLOGY [address] 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 Mr. Radha Villa is a [id number] with a diagnosis of right eye choroidal [...] cGy. LESVIA SERRATO MD MT: [email or web address] Document: [id number] [place], [place] Name: RADHA VILLA OPERATIVE REPORT Page 2 of 1 LCN: EYE DSC: 10/13/2004 [place], [place] Name: RADHA VILLA MR#: : Procedure Date: -86 1940 10/13/2004 Surgeon: LESVIA SERRATO MD OPERATIVE REPORT Page 1 of 1 COVER INSPECTOR documented in this encounter Plan of Treatment Upcoming Encounters Date Type Specialty Care Team Description 08/16/2022 Ancillary Procedure Cardiology Timothy [place] MD [address] [place] [id number] (Fiorella olvera) 08/16/2022 Office Visit Cardiology Timothy [place] MD [address] [place] [phone] (Fiorella olvera) documented as of this encounter Visit Diagnoses Not on filedocumented in this encounter
--- OUTSIDE RECORDS SUMMARY | 2022-07-26 11:00 | XMS_ITS | Encounter Summary ---
:1940 Author Organization [place] Address [facility] [place] [address] Care Team Providers Name Role Phone Unavailable Primary Care Provider Unavailable Reason for Visit Reason Comments RECHECK Would like to have some lab work done. Encounter Details Date Type Department Care Team Description [facility] MIXED HY[facility]LIPIDEMIA; [facility] [place] XXX RESIGNED XXX OTHER PSORIASIS [address] [place] [address] [place] [address] [place] [phone] (Wo rk) Social History Tobacco Use [...] [address] [place] [phone] (Fiorella olvera) 08/16/2022 Office Visit Cardiology Timothy [place] MD [address] [place] [phone] (Fiorella olvera) documented as of this encounter [...] CDT) athologist Signature Cholesterol 184 <200 mg/dL [facility] Comment: Cholesterol Reference Range: <200 ??The NCEP recommends further ? evaluation of: ? 1. ??Patients with cholesterol ? greater than 200 mg/dL ? if additional risk facto rs ? are present. ? 2. ??All patients with a ? cholesterol greater than ? 240 mg/dL. Triglycerides 172 (H) <150 mg/dL [facility] HDL Cholesterol 37 (L) >40 mg/dL [facility] LDL Cholesterol Calculated 113 0 - 129 mg/dL [facility] VLDL-Cholesterol 34 (H) 0 - 30 mg/dL [facility] Cholesterol/HDL Ratio 5.0 0.0 - 5.0 [facility] Specimen Anatomical Collection Method Collection Time Receive d Time (Source) Location / / Volume Laterality 04/25/2004 9:47 AM 4 9:52 CDT AM CDT Kannan Flores MD LABORATORY Performing Organization Address City/State/ZIP Code Phon e Number [facility] [address] [place] [address] [facility] (ABNORMAL) A.M.A. COMPREHENSIVE MET.PANEL (04/25/2004 9:47 AM CDT) P athologist Signature Sodium 138 133 - 144 [place] mmol/L CLINIC LAB Potassium 4.1 3.4 - 5.3 [place] mmol/L [facility]IC LAB Chloride 105 94 - 109 [place] mmol/L [facility] Carbon Dioxide 28 20 - 32 [place] mmol/L [facility] LAB Anion Gap 5 (L) 6 - 17 [place] mmol/L [facility]IC LAB Glucose 98 60 - 115 [place] mg/dL CL[facility]IC LAB Urea Nitrogen 22 7 - 30 [place] mg/dL CL[facility]IC LAB Creatinine 0.80 0.80 - [place] 1.50 mg/dL CLINIC LAB GFR Estimate >80 >60 [place] mL/min/1.7 CLINIC LAB m2 GFR Estimate If >80 >60 [facility] Black mL/min/1.7 CLINIC LAB m2 Calcium 9.0 8.5 - 10.4 [facility] mg/dL CLINIC LAB Bilirubin Total 0.5 0.2 - 1.3 [facility] mg/dL [facility] Albumin 3.7 3.2 - 4.5 [facility] g/dL [facility] Protein Total 7.1 6.0 - 8.2 [facility] g/dL [facility] Alkaline 66 40 - 150 [facility] Phosphatase U/L CLINIC LAB ALT 52 0 - 70 U/L [facility] AST 40 0 - 55 U/L [facility] Specimen Anatomical Collection Method Collection Time Receive d Time (Source) Location / / Volume Laterality 04/25/2004 9:47 AM 9:52 CDT AM CDT Kannan Flores MD LABORATORY Performing Organization Address City/State/ZIP Code Phon e Number [facility] [address] [place] [address] [facility] documented in this encounter Visit Diagnoses Diagnosis Mixed hyperlipidemia Other psoriasis documented in this encounter
--- OUTSIDE RECORDS SUMMARY | 2022-07-26 11:00 | XMS_ITS | Encounter Summary ---
:1940 Author Organization [place] Address [address] [place] [address] Care Team Providers Name Role Phone Nas Cardenas MD Primary Care Provider Encounter Details Date Type Department Care Team Description 02/02/2012 Historic Results [facility] Heart Unknown, [facility] ider Clinic [place] [address] [facility] [address] [place] [phone] Social History Tobacco Use Types Packs/Day Years [...] [place] MD [address] [place] [phone] (Wo rk) 08/16/2022 Office Visit Cardiology Timothy [place] MD [address] [place] [phone] (Wo rk) documented as of this encounter [...] on filedocumented in this encounter Care Teams Property Analyst Relationship Specialty Start Date End Date Nas Cardenas MD PCP - General Family Practice 02/01/12 04/12/17 documented as of this encounter
--- OUTSIDE RECORDS SUMMARY | 2022-07-26 11:00 | XMS_ITS | Encounter Summary ---
:1940 Author Organization [place] Address [facility] [place] [address] Care Team Providers Name Role Phone Unavailable Primary Care Provider Unavailable Encounter Details Date Type Department Care Team Description 10/13/2004 Historic Powder Carrier INTERFACED REPORT Dasha Gonzalez MD [facility] [address] [facility] [address] [place], [place] [address] (Wo rk) Social History Tobacco Use Types Packs/Day Years Used Date Smoking Tobacco: Never Alcohol Use Standard Drinks/Week Comments Yes 0 (1 standard drink = 0.6 oz pure alcoho l) Sex Assigned at Date Recorded Not on file documented as of this encounter Progress Notes Dasha Gonzalez MD - 09/06/2011 4:57 AM INTRANET SPECIALIST 1st ASS'T: Sabino Ceja 2nd ASS'T: PRE-OPERATIVE [...] condition. DASHA GONZALEZ MD MT: [email or web address] Document: [id number] CC: DASHA GONZALEZ MD [place], [place] Name: RADHA FAROOQ OPERATIVE REPORT Page 2 of 2 LCN: EYE DSC: 10/13/2004 [place], [place] Name: RADHA FAROQO MR#: : Procedure Date: -86 1940 10/13/2004 Surgeon: DASHA GONZALEZ MD OPERATIVE REPORT Page 1 of 2 ANET SPECIALIST documented in this encounter Plan of Treatment Upcoming Encounters Date Type Specialty Care Team Description 08/16/2022 Ancillary Procedure Cardiology Timothy [place] MD [address] [place] [phone] (Wo rk) 08/16/2022 Office Visit Cardiology Timothy [place] MD [address] [place] [phone] (Fiorella rk) documented as of this encounter Visit Diagnoses Not on filedocumented in this encounter
--- OUTSIDE RECORDS SUMMARY | 2022-07-26 11:00 | XMS_ITS | Encounter Summary ---
:1940 Author Organization [place] Address [address] [facility] [place] [address] Care Team Providers Name Role Phone Nas Cardenas MD Primary Care Provider Encounter Details Date Type Department Care Team Description 02/01/2012 Historic Results [facility] Heart Unknown, [facility] ider Clinic [place] [address] [facility] [address] [place] [phone] Social History Tobacco Use Types Packs/Day Years [...] [address] [place] [phone] (Wo rk) 08/16/2022 Office Visit Cardiology Timothy [place] MD [address] [place] [phone] (Wo rk) documented as of this encounter [...] on filedocumented in this encounter Care Teams Scrap Piler Relationship Specialty Start Date End Date Nas Cardenas MD PCP - General Family Practice 02/01/12 04/12/17 documented as of this encounter
--- OUTSIDE RECORDS SUMMARY | 2022-07-26 11:00 | XMS_ITS | Encounter Summary ---
:1940 Author Organization [place] Address [address] [facility] [address] Care Team Providers Name Role Phone Unavailable Primary Care Provider Unavailable Encounter Details Date Type Department Care Team Description 08/06/2004 Allied Health/Nurse Health [facility] Visit Clinic [place] [address] [place] [phone] Social History Tobacco Use Types Packs/Day Years [...] MD [address] [place] [phone] (Wo rk) 08/16/2022 Office Visit Cardiology Timothy [place] MD [address] [place] [phone] (Wo rk) documented as of this encounter Visit Diagnoses Diagnosis Need for prophylactic vaccination and in oculation against influenza documented in this encounter
--- OUTSIDE RECORDS SUMMARY | 2022-07-26 11:00 | XMS_ITS | Encounter Summary ---
:1940 Author Organization [place] Address [facility] [place] [address] Care Team Providers Name Role Phone Unavailable Primary Care Provider Unavailable Reason for Visit Reason Comments RECHECK having radiation tx for eye ca.-needing lab work Encounter Details Date Type Department Care Team Description 08/31/2004 Office Visit [facility] Kannan Flores MD [facility] XXX RESIGNED XXX ENCOUNTER--DISREGARD [address] [place] [address] (Primary Dx) [place] [address] [place] [phone] (Wo rk) Social History Tobacco Use Types Packs/Day Years Used Date Smoking Tobacco: Never Alcohol Use Standard Drinks/Week Comments Yes 0 (1 standard drink = 0.6 oz pure alcoho l) Sex Assigned at Date Recorded Not on file documented as of this encounter Last Filed Vital Signs Vital Sign Reading Time Taken Comments Blood Pressure 128/90 08/31/2004 9:55 AM COILER OPERATOR Pulse 62 08/31/2004 9:55 AM COILER OPERATOR Temperature - - Respiratory Rate - - Oxygen Saturation - - Inhaled Oxygen Concentration - - Weight 139.3 kg (307 lb) 08/31/2004 9:55 AM COILER OPERATOR Height - - Body Mass Index - [...] [address] [place] [phone] (Wo rk) 08/16/2022 Office Visit Cardiology Timothy [place] MD [address] [place] [phone] (Wo rk) documented as of this encounter Visit Diagnoses Diagnosis ERRONEOUS ENCOUNTER--DISREGARD - Primary documented in this encounter
== END 2022-07-26 10:48 | disposition home or self-care (01) ==
LOC: CT 10:48
PROVIDERS: PCP Family Medicine; Visit Provider Internal Medicine Nephrology
DX: R19.09 Other intra-abdominal and pelvic swelling, mass and lump (principal); N32.89 Other specified disorders of bladder; N28.1 Cyst of kidney, acquired; K43.9 Ventral hernia without obstruction or gangrene
CPT/HCPCS: 74178; Q9967

== ENCOUNTER 2022-08-22 06:48 | Outpatient (CLI) | payer MEDICARE, BC, SELFPAY ==
--- OUTSIDE RECORDS SUMMARY | 2022-08-22 06:51 | XMS_ITS | Encounter Summary ---
:1940 Author Organization [place] Address [address] [place] [address] Care Team Providers Name Role Phone Timothy Smith MD Unavailable Graham Licona MD Primary Care Provider Encounter Details Date Type Department Care Team Description 03/20/2022 [facility] Janeth Huizar RN [facility] Heart [address] [place] [address] Social History Tobacco Use Types [...] day. Pt requested script be sent to [facility] in [place], [place]. Will escribe this. Pt will call if he has any adverse reactions to this medication switch. Telephone Encounter - Timothy Smith MD - 03/21/2022 3:40 PM CDT OK to keep current dose of metoprolol. Telephone Encounter - Charito Huizar RN - 03/21/2022 10:52 AM CDT Is he to continue the Metoprolol as well? Pt was told by hospitalist at [facility] to take 1/2 of 25mg (12.5mg) Toprol [...] reports he was in the hospital at [facility]. He reports he was discharged on [...] Attempted to reach Dr. Shaikh SANTANA at [facility] but prescribing MD was a hospitalist and [...] Encounters Date Type Specialty Care Team Description 08/31/2022 Appointment Respiratory Therapy Timothy Smith MD [address] [place] [id number] (Wo rk) 09/28/2022 Lab Lab 09/28/2022 Office Visit Cardiology Timothy Smith MD [address] [place] [address] Trudi Grayson APRN WAGON DRILL OPERATOR [address] [place] [id number] 11/16/2022 Ancillary Procedure Cardiology Timothy Smith MD [address] [place] [id number] (Wo rk) documented as of this encounter Visit Diagnoses Diagnosis Sustained VT (ventricular tachycardia) - Primary Paroxysmal ventricular tachycardia documented in this encounter Care Teams Vacuum Bottle Assembler Relationship Specialty Start Date End Date Graham Licona MD PCP - General Family Medicine 06/30/21 [facility] [address] [place] [address] Timothy Smith MD Assigned Heart and Vascular 07/23/20 [address] Provider [place] [id number] documented as of this encounter
--- OUTSIDE RECORDS SUMMARY | 2022-08-22 06:51 | XMS_ITS | Clinical Summary ---
:1940 Author Organization [place] Address [address] [facility] [place] [address] Care Team Providers Name Role Phone Timothy Smith MD Unavailable Graham Licona MD Primary Care Provider Allergies Active Allergy Reactions Severity Noted Date Comments Adhesive Tape Rash Low 01/20/2022 Pravastatin Rash Medium 06/30/2021 Medications Medication Sig Dispensed Refills Start End Date Status Date ACYCLOVIR 400 MG 1 TABLET 3 30 6 Ac tive OR TABS TIMES 4 DAILY-as need for Cold sores fenofibrate 160 MG Take 160 mg 0 Active tablet by mouth daily. nitroGLYcerin Place 1 100 tablet 3 Activ e (NITROSTAT) 0.4 MG tablet (0.4 0 sublingual mg) under the tabletIndications: tongue every Coronary artery 5 minutes as disease involving needed for tangirnaq coronary chest pain artery of tangirnaq heart without angina pectoris metoprolol Take 1 tablet 90 tablet 3 Activ e succinate ER (50 mg) by 1 (TOPROL-XL) 50 MG mouth daily 24 hr tabletIndications: Persistent atrial fibrillation (H) atorvastatin Take 20 mg by 0 Act mike (LIPITOR) 20 MG mouth daily tablet loratadine Take 10 mg by 0 Activ e (CLARITIN) 10 MG mouth daily tablet glimepiride Take 2 mg by 0 Activ e (AMARYL) 2 MG mouth 2 times tablet daily biotin 1000 MCG Take 1,000 0 Act mike TABS tablet mcg by mouth daily omeprazole Take 20 mg by 0 Activ e (PRILOSEC) [address] capsule metFORMIN Take 2 0 Active (GLUCOPHAGE) 500 tablets 1 MG (1,000 mg) by tabletIndications: mouth 2 times Type 2 diabetes daily (with mellitus with meals) complication (H) tamsulosin Take 0.4 mg 0 Active (FLOMAX) 0.4 MG by mouth capsule every evening apixaban Take 1 tablet 60 tablet 3 Active ANTICOAGULANT (5 mg) by 1 (ELIQUIS) 5 MG mouth 2 times tabletIndications: daily Persistent atrial fibrillation (H) amiodarone Take 1 tablet 90 tablet 3 Activ e (PACERONE) 200 MG (200 mg) by 2 tabletIndications: mouth daily Sustained VT (ventricular tachycardia) fluticasone Barker 1 spray 0 Acti ve (FLONASE) 50 into both MCG/ACT nasal nostrils spray daily metolazone Take 5 mg by 0 Active (ZAROXOLYN) 5 MG mouth every tablet other day Acetaminophen Take by mouth 0 Ac tive (TYLENOL ARTHRITIS 2 times daily PAIN PO) bumetanide (BUMEX) Take 2 mg by 0 Active 2 MG tablet mouth daily CURRENTLY NOT TAKING levothyroxine Take 1 tablet 60 tablet 3 Ac tive (SYNTHROID/LEVOTHR (50 mcg) by 2 OID) 50 MCG mouth daily tabletIndications: Hypothyroidism due to medication furosemide (LASIX) Take 40 mg by 0 0 Discontinued 40 MG tablet mouth daily 22 (Medi cation Reconcilia tion Clean Up) amiodarone Take 1 tablet 60 tablet 0 08/16/20 Disco ntinued (PACERONE) 200 MG (200 mg) by 2 22 (Medication tabletIndications: mouth daily Reconciliation Sustained VT Clean U p) (ventricular tachycardia) Active Problems Problem Noted Date Heart failure, unspecified HF chronicity, unspecified heart failure type 08/16/2022 Type 2 diabetes mellitus with complication 08/16/2022 Acute respiratory failure with hypoxia and hypercapnia 08/16/2022 Malignant melanoma, unspecified site 08/16/2022 Stage 3a chronic kidney disease 08/16/2022 Morbid obesity 04/26/2021 Sustained VT (ventricular tachycardia) 01/29/2021 Localized edema 06/11/2018 Chest pain 03/07/2016 ACS (acute coronary syndrome) 02/02/2016 Other psoriasis 04/25/2004 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 Timothy Smith MD Paroxys mal ventricular tachycardia 08/11/2022 Lab Lab Paroxysmal vent ricular tachycardia; Persistent atri al fibrillation (H) 08/11/2022 Travel 08/03/2022 Orders Only Cardiology Lacy Washington RN On amioda jewel therapy (Primary Dx) 08/02/2022 Care Coordination Cardiology Andra Wilson Refi ll Request RN (amiodarone) 06/26/2022 Ancillary Procedure Cardiology Steven Canchola Ca rdiac pacemaker in MD Jose situ 05/29/2022 Documentation Only Cardiology Catherine Aranda, Med ication Question (Re CERAMIC CHEMIST eliquis dose) from Last 3 Months Immunizations Name Administration [...] in contact with No / Unsu re 08/16/2022 2:19 PM RHEOSTAT ASSEMBLER someone who was confirmed or suspected to have Coronavirus/COVID-19? Last Filed Vital Signs Vital Sign Reading Time Taken Comments Blood Pressure 132/66 08/16/2022 2:46 PM RHEOSTAT ASSEMBLER Pulse 68 08/16/2022 2:46 PM RHEOSTAT ASSEMBLER Temperature 36.6 ??C (97.9 ??F) 07/04/2021 12:03 PM CDT Respiratory Rate 16 07/04/2021 4:00 PM CDT Oxygen Saturation 95% 02/08/2022 3:14 PM CDT Inhaled Oxygen Concentration - - Weight 114 kg (251 lb 4.8 oz) 08/16/2022 2:46 PM RHEOSTAT ASSEMBLER Height 174 cm (5' 8.5) 08/16/2022 2:46 PM RHEOSTAT ASSEMBLER Body Mass Index 37.65 08/16/2022 2:46 PM RHEOSTAT ASSEMBLER Plan of Treatment Upcoming Encounters Date Type Specialty Care Team Description 08/31/2022 Appointment Respiratory Therapy Timothy Smith MD [address] [place] [id number] (Wo rk) 09/28/2022 Lab Lab 09/28/2022 Office Visit Cardiology Timothy Smith MD [address] [place] [address] Trudi Grayson APRN PULVERIZING AND SIFTING OPERATOR [address] [place] [address] 11/16/2022 Ancillary Procedure Cardiology Timothy Smith MD [address] [place] [id number] (Wo rk) Health Maintenance Due Date Last Done Comments ADVANCE CARE PLANNING 1940 ANNUAL REVIEW OF HM ORDERS 1940 DIABETIC FOOT EXAM 1940 EYE EXAM 1940 MICROALBUMIN 1940 FALL RISK ASSESSMENT 2003 ZOSTER IMMUNIZATION (2 of 08/26/2014 07/01/2014 3) LIPID 02/02/2017 02/03/2016, 04/25/2004 A1C 09/19/2021 06/20/2021, 02/03/2016, 02/02/2012, Additional history exists PHQ-2 (once per calendar 10/01/2021 year) MEDICARE ANNUAL WELLNESS 06/20/2022 06/20/2021 VISIT HEMOGLOBIN 07/04/2022 07/04/2021, 07/04/2018, 05/31/2018, Additional history exists BMP 02/08/2023 08/11/2022, 07/04/2021, 02/03/2019, Additional history exists DTAP/TDAP/TD IMMUNIZATION 08/02/2031 08/02/2021, 06/07/2011 , (3 - Td or Tdap) 06/07/2011, Additional history exists Pneumococcal Vaccine: 65+ Completed 10/18/2015, 05/29/2011 , Years 07/07/2005, Additional history exists URINALYSIS Completed 10/23/2018, 07/04/2018 COVID-19 Vaccine Completed 07/12/2022, 01/19/2022, 07/14/2021, Additional history exists INFLUENZA VACCINE Completed 07/12/2022, 06/28/2021, 06/24/2020, Additional history exists IPV IMMUNIZATION Aged Out No longer eligi ble based on patient 's age to complete this topic MENINGITIS IMMUNIZATION Aged Out No longe r eligible based on patient 's age to complete this topic Medical Devices Implanted Type Area Retail Pharmacy Technician Device Shelf Model / Identifier Expiration Serial / Date Lot Icd Resonate El Vr Df4 - [id number] ICD [place] 09/09/2021 D432 / Implanted: Qty: 1 on 07/04/2021 at [facility] [employer] [place] [id number] / [id number] Lead Wires- Right Atrium-02/04/2016 Lead Wires- [facility] [employer] MEDICA L [id number] / Implanted: 02/04/2016 by Timothy Smith MD (Quantity not on file) [facility] [employer] INC [id number] / Explanted: 07/04/2021 (Quantity not on file) Lead Wires- Right Ventricle-02/04/2016 Lead Wires- [employer] MED ICAL [id number] / Implanted: 02/04/2016 by Timothy Smith MD (Quantity not on file) Right INC [id number] / Explanted: 07/04/2021 (Quantity not on file) Ventricle Lead [place] [employer] Df4 Af 59 Cm 0272 - [id number] Leads [place] 04/07/2023 0272 / Implanted: Qty: 1 on 07/04/2021 at [facility] [employer] [place] [id number] / [id number] Pacemaker-Dino Sci Pacemaker [address]AN [address] L121 / Implanted: 02/04/2016 by Timothy Smith MD (Quantity not on file) [employer] [place] [id number] / Explanted: 07/04/2021 (Quantity not on file) Procedures Procedure Name Priority Date/Time Associated Diagnosis Comme nts EKG 12-LEAD COMPLETE Routine 08/16/2022 4:09 Paroxysmal Resu lts for this W/READ - CLINICS PM RHEOSTAT ASSEMBLER ventricular procedure a re in tachycardia the results section. XR CHEST 2 VIEWS Routine 08/11/2022 3:08 Paroxysmal Results for this PM RHEOSTAT ASSEMBLER ventricular procedure are i n tachycardia the results section. TSH Routine 08/11/2022 2:41 Persistent atrial Results for this PM RHEOSTAT ASSEMBLER fibrillation (H) procedure a re in the results section. BASIC METABOLIC PANEL Routine 08/11/2022 2:41 Paroxysmal Res ults for this PM RHEOSTAT ASSEMBLER ventricular procedure are i n tachycardia the results section. HEPATIC FUNCTION PANEL Routine 08/11/2022 2:41 Paroxysmal Re sults for this PM RHEOSTAT ASSEMBLER ventricular procedure are i n tachycardia the results section. INTERROGATION DEVICE Routine 06/26/2022 12:55 Cardiac pacemake r in Results for this EVAL REMOTE ICD UP TO AM CDT situ proced ure are in 90 the results section. from Last 3 Months Results EKG 12-lead complete w/read (Future)- to be scheduled (08/16/2022 4:09 PM RHEOSTAT ASSEMBLER) Narrative This result has an attachment that is no t available. Timothy Smith MD ECG ORDERABLES XR Chest 2 Views (08/11/2022 3:08 PM RHEOSTAT ASSEMBLER) Anatomical Region Laterality Modality Chest Radio Fluoroscopy Specimen (Source) Anatomical Location Collection Method / Collectio n Time Received Time / Laterality Volume Impressions 08/11/2022 4:27 PM RHEOSTAT ASSEMBLER IMPRESSION: There are no acute infiltrates. The cardiac silhouette is not enlarged. Pulmonary vasculature is u nremarkable. VALREIANO FITZGERALD MD Narrative 08/11/2022 4:27 PM RHEOSTAT ASSEMBLER CHEST TWO VIEWS 08/11/2022 3:08 PM HISTORY: Paroxysmal ventricular tachycar timi. COMPARISON: 07/04/2021 Procedure Note Valeriano Fitzgerald MD - 08/11/2022Fo rmatting of this note might be different from the original. CHEST TWO VIEWS 08/11/2022 3:08 PM HISTORY: Paroxysmal ventricular tachycar timi. COMPARISON: 07/04/2021 IMPRESSION: There are no acute infiltrat es. The cardiac silhouette is not enlarged. Pulmonary vasculature is u nremarkable. VALERIANO FITZGERALD MD Timothy Smith MD IMG DIAGNOSTIC IMAGING ORDER ANN (ABNORMAL) TSH (08/11/2022 2:41 PM RHEOSTAT ASSEMBLER) athologist Signature TSH 72.13 (H) 0.30 - 4.20 08/11/2022 [facility] uIU/mL 3:22 PM RHEOSTAT ASSEMBLER Specimen Anatomical Collection Method / Collection Time Recei chikis Time (Source) Location / Volume Laterality Blood STRUCTURE OF LEFT Venipuncture / 08/11/2022 2:41 08/11 2:46 UPPER LIMB / Unknown PM RHEOSTAT ASSEMBLER PM RHEOSTAT ASSEMBLER Unknown Timothy Smith MD LAB - BLOOD ORDERABLES Performing Organization Address City/State/ZIP Code Phon e Number [place] [address] Care Lab [address] Lab (1st floor, no room number) (ABNORMAL) Hepatic panel (08/11/2022 2:41 PM RHEOSTAT ASSEMBLER) Patholo gist Method Time Signature Protein Total 7.8 6.4 - 8.3 08/11/2022 [facility] g/dL 3:16 PM RHEOSTAT ASSEMBLER Albumin 4.1 3.5 - 5.2 08/11/2022 [facility] g/dL 3:16 PM RHEOSTAT ASSEMBLER Bilirubin Total 0.7 <=1.2 08/11/2022 LABORATORY mg/dL 3:16 PM RHEOSTAT ASSEMBLER Alkaline 52 40 - 129 08/11/2022 LABORATORY Phosphatase U/L 3:16 PM RHEOSTAT ASSEMBLER AST 30 10 - 50 08/11/2022 LABORATORY U/L 3:16 PM RHEOSTAT ASSEMBLER ALT 15 10 - 50 08/11/2022 [facility] U/L 3:16 PM RHEOSTAT ASSEMBLER Bilirubin Direct 0.35 (H) 0.00 - 08/11/2022 [facility] Y 0.30 3:16 PM RHEOSTAT ASSEMBLER mg/dL Specimen Anatomical Collection Method / Collection Time Recei chikis Time (Source) Location / Volume Laterality Blood STRUCTURE OF LEFT Venipuncture / 08/11/2022 2:41 08/11 2:46 UPPER LIMB / Unknown PM RHEOSTAT ASSEMBLER PM RHEOSTAT ASSEMBLER Unknown Timothy Smith MD LAB - BLOOD ORDERABLES Performing Organization Address City/State/ZIP Code Phon [place] [address] Care Lab [address] Lab (1st floor, no room number) (ABNORMAL) Basic metabolic panel (08/11/2022 2:41 PM RHEOSTAT ASSEMBLER) [facility] Method Time Signature Sodium 142 136 - 145 08/11/2022 LABORATORY mmol/L 3:16 PM RHEOSTAT ASSEMBLER Potassium 4.3 3.4 - 5.3 08/11/2022 LABORATORY mmol/L 3:16 PM RHEOSTAT ASSEMBLER Chloride 98 98 - 107 08/11/2022 LABORATORY mmol/L 3:16 PM RHEOSTAT ASSEMBLER Carbon Dioxide 34 (H) 22 - 29 08/11/2022 LABORATORY (CO2) mmol/L 3:16 PM RHEOSTAT ASSEMBLER Anion Gap 10 7 - 15 08/11/2022 LABORATORY mmol/L 3:16 PM RHEOSTAT ASSEMBLER Urea Nitrogen 58.6 (H) 8.0 - 23.0 08/11/2022 LABORATORY mg/dL 3:16 PM RHEOSTAT ASSEMBLER Creatinine 2.29 (H) 0.67 - 08/11/2022 LABORATORY 1.17 mg/dL 3:16 PM RHEOSTAT ASSEMBLER Calcium 9.5 8.8 - 10.2 08/11/2022 LABORATORY mg/dL 3:16 PM RHEOSTAT ASSEMBLER Glucose 150 (H) 70 - 99 08/11/2022 [facility] mg/dL 3:16 PM RHEOSTAT ASSEMBLER GFR Estimate 28 (L) >60 08/11/2022 [facility] mL/min/1.7 3:16 PM RHEOSTAT ASSEMBLER 3m2 Comment: Effective September 20, 2021 eGF Rcr in adults is calculated using the 2020 CKD-EPI creatinine equation which includ es age and gender (Humberto et al., NE, DOI: 10.1056/IRVRvv4632122) Specimen Anatomical Collection Method / Collection Time Recei chikis Time (Source) Location / Volume Laterality Blood STRUCTURE OF LEFT Venipuncture / 08/11/2022 2:41 08/11 2:46 UPPER LIMB / Unknown PM RHEOSTAT ASSEMBLER PM RHEOSTAT ASSEMBLER Unknown Timothy Smith MD LAB - BLOOD ORDERABLES Performing Organization Address City/State/ZIP Code Phon e Number [place] [address] Care Lab [address] Lab (1st floor, no room number) INTERROGATION DEVICE EVAL REMOTE ICD UP TO 90 (06/26/2022 12:55 AM CDT) Component Value Ref Test Analysis Performed Pathologis t Range Method Time At Signature Date Time [id number] [employer] Interrogation Session Implantable [employer] [employer] Pulse Generator Retail Pharmacy Technician Implantable D432 RESONATE EL [employer] Pulse Generator ICD Model Implantable [id number] [employer] Pulse Generator Serial Number Type Remote [employer] Interrogation Session Clinic Name [facility] [employer] Implantable Defibrillator [employer] Pulse Generator Type Implantable [id number] [employer] Pulse Generator Implant Date Implantable Lead [employer] Retail Pharmacy Technician Implantable Lead 0272 [place] [employer] Model 4-Site S Implantable Lead [id number] [employer] Serial Number Implantable Lead [id number] [employer] Implant Date Implantable Lead Bipolar Lead [...] Charge 41 J [employer] Energy Brandon Statistic [id number] [employer] Date Time Start Brandon Statistic [id number] [employer] Date Time End Brandon Statistic 3 % [employer] RV Percent Paced Therapy 6 [employer] Statistic Recent Shocks Delivered Therapy 0 [employer] Statistic Recent Shocks Aborted Therapy 26 [employer] Statistic Recent ATP Delivered Therapy [id number] [employer] Statistic Recent Date Time Start Therapy [id number] [employer] Statistic Recent Date Time End Therapy 6 [employer] Statistic Total Shocks Delivered Therapy 0 [employer] Statistic Total Shocks Aborted Therapy 34 [employer] Statistic Total ATP Delivered Therapy [id number] [employer] Statistic Total Date Time End Episode [...] VT-1 [employer] Statistic Vendor Type Category Episode [id number] [employer] Statistic Recent Date Time Start Episode [id number] [employer] Statistic Recent Date Time End Episode [id number] [employer] Statistic Recent Date Time Start Episode [id number] [employer] Statistic Recent Date Time End Episode [id number] [employer] Statistic Recent Date Time Start Episode [id number] [employer] Statistic Recent Date Time End Episode [id number] [employer] Statistic Recent Date Time Start Episode [id number] [employer] Statistic Recent Date Time End Episode [id number] [employer] Statistic Recent Date Time Start Episode [id number] [employer] Statistic Recent Date Time End Episode APM-195 [employer] Identifier Episode Type Periodic EGM [employer] Category Episode Date [id number] [employer] Time Episode [id number] [employer] Identifier Episode Type Other [employer] Category Episode Date [id number] [employer] Time Anatomical Region Laterality Modality Other Specimen (Source) Anatomical Collection Method Collection Time Re ceived Time Location / / Volume Laterality 06/26/2022 12:55 AM CDT Narrative 06/27/2022 11:01 AM CDT [employer] Resonate (S) ICD Remote Device Check APPLICATIONS ADMINISTRATOR: 3% Mode: VVIR 50-130 ppm Presenting Rhythm: [...] ype Group Dates MEDICARE MEDICARE FOR HB [id number] 2003-Pres [phone] ATTN CLAIMS Medicare SUPPLEMENT ent 40 [address] [place] [address] BCBS BCBS [id number] 2016-Prese [phone] [address] [address] PPO BLUE nt 00 [place] [address] (Home) [place] [phone] [address] (Work) Advance Directives For more information, please contact: [phone] Latest Code Status on File Code Status Date Activated Date Inactivated Comments Full Code 02/04/2016 9:52 AM 07/04/2021 11:49 AM Code Status History Code Status Date Activated Date Inactivated Comments Full Code 02/02/2016 9:20 PM 02/04/2016 9:52 AM Full Code 02/01/2012 2:37 PM 02/04/2012 6:16 PM Care Teams Band Edger Relationship Specialty Start Date End Date Graham Licona MD PCP - General Family Medicine 06/30/21 [facility] [address] [place] [address] Timothy Smith MD Assigned Heart and Vascular 07/23/20 [address] Provider [place] [address]
--- OUTSIDE RECORDS SUMMARY | 2022-08-22 06:51 | XMS_ITS | Encounter Summary ---
:1940 Author Organization [place] Address [address] [place] [address] Care Team Providers Name Role Phone Timothy Smith MD Unavailable Graham Licona MD Primary Care Provider Encounter Details Date Type Department Care Team Description 08/16/2022 Travel Social History Tobacco Use Types Packs/Day Years Used Date Smoking Tobacco: Never Smokeless Tobacco: Never Alcohol Use Standard Drinks/Week Comments No 0 (1 standard drink = 0.6 oz pure alcoho l) Sex Assigned at Date Recorded Not on file COVID-19 Exposure Response Date Recorded In the last 10 days, have you been in contact with No / Unsu re 08/16/2022 2:19 PM RISK CONTROL OFFICER someone who was confirmed or suspected to have Coronavirus/COVID-19? documented as of this encounter Plan of Treatment Upcoming Encounters Date Type Specialty Care Team Description 08/31/2022 Appointment Respiratory Therapy Timothy Smith MD [address] [place] [id number] (Wo rk) 09/28/2022 Lab Lab 09/28/2022 Office Visit Cardiology Timothy Smith MD [address] [place] [id number] Trudi Grayson APRN STRAND BUNCHER FINE WIRE [address] [id number] 11/16/2022 Ancillary Procedure Cardiology Timothy Smith MD [address] [place] [id number] (Wo rk) documented as of this encounter Visit Diagnoses Not on filedocumented in this encounter Care Teams Unit Technician Relationship Specialty Start Date End Date Graham Licona MD PCP - General Family Medicine 06/30/21 [facility] [address] [place] [address] Timothy Smith MD Assigned Heart and Vascular 07/23/20 [address] Provider [place] [id number] documented as of this encounter
--- OUTSIDE RECORDS SUMMARY | 2022-08-22 06:51 | XMS_ITS | Encounter Summary ---
:1940 Author Organization [facility] Address [address] [place] [address] Care Team Providers Name Role Phone Timothy [...] Clinic (Standing ORD 2 count) [address] [place] [address] Referral ID Status Reason Start Date Expiration Date Visits V isits Requested Authorized [id number] Pending 05/04/2022 05/04/2023 10 10 Review Encounter Details Date Type Department Care Team Description 08/16/2022 Ancillary Procedure [facility] Timothy Smith MD Sustained VT (ventricular tachycardia); [facility] [address] Paroxysmal v entricular tachycardia; [address] Cardiac pacemaker in situ [address] [address] [place], [place] [address] [address] [place], [place] (Work) [address] Social History Tobacco Use [...] No / Unsu re 08/16/2022 2:19 PM TELEPHONE STATION REPAIRER someone who was confirmed or suspected to have Coronavirus/COVID-19? documented as of this encounter Plan of Treatment Upcoming Encounters Date Type Specialty Care Team Description 08/31/2022 Appointment Respiratory Therapy Timothy Smith MD [address] [place] [id number] (Wo rk) 09/28/2022 Lab Lab 09/28/2022 Office Visit Cardiology Timothy Smith MD [address] [place] [phone] Trudi Grayson APRN THERAPEUTIC RADIOLOGIST [address] [place] [id number] 11/16/2022 Ancillary Procedure Cardiology Timothy Smith MD [address] [place] [phone] (Wo rk) Pending Results Name Type Priority Associated Diagnoses Date/Ti me Cardiac Device Implantable Cardiac Routine Sustained VT 2021 2:50 PM Check - In Clinic Device (ventricular TELEPHONE STATION REPAIRER (Standing ORD 2 tachycardia) count) Paroxysmal ventricular tachycardia Cardiac pacemaker in situ documented as of this encounter Visit Diagnoses Diagnosis Sustained VT (ventricular tachycardia) Paroxysmal ventricular tachycardia Paroxysmal ventricular tachycardia Cardiac pacemaker in situ documented in this encounter Care Teams Eligibility Supervisor Relationship Specialty Start Date End Date Graham Licona MD PCP - General Family Medicine 06/30/21 [facility] [address] [place] [address] Timothy Smith MD Assigned Heart and Vascular 07/23/[address] Provider [place] [id number] documented as of this encounter
--- OUTSIDE RECORDS SUMMARY | 2022-08-22 06:51 | XMS_ITS | Encounter Summary ---
:1940 Author Organization [facility] Address [address] [facility] [place] [address] Care Team Providers Name Role Phone Timothy Smith MD Unavailable Graham Licona MD Primary Care Provider Encounter Details Date Type Department Care Team Description 08/03/2022 [facility] Heart [facility], O n amiodarone therapy Clinic [facility] (Primary Dx) [address] [place] [phone] Social History Tobacco [...] Respiratory Therapy Timothy Smith MD [address] [place] [id number] (Wo rk) 09/28/2022 Lab Lab 09/28/2022 Office Visit Cardiology Timothy Smith MD [address] [place] [phone] Trudi Grayson APRN HAND SHOES SEWER [address] [id number] 11/16/2022 Ancillary Procedure Cardiology Timothy Smith MD [address] [place] [id number] (Wo rk) Scheduled Orders Name Type Priority Associated Diagnoses Order S chedule General PFT Lab (Please PFT Routine On amiodarone the rapy Expected: 01/31/2023 always keep checked) (Approx imate), Expires: 08/03/2023 Pulmonary Function Test PFT Routine On amiodarone the rapy Expected: 08/10/2022 (Approximate), Expires: 08/03/2023 documented as of this encounter Visit Diagnoses Diagnosis On amiodarone therapy - Primary documented in this encounter Care Teams Mercerizing Range Controller Relationship Specialty Start Date End Date Graham Licona MD PCP - General Family Medicine 06/30/21 [facility] [address] [place] [address] Timothy Smith MD Assigned Heart and Vascular 07/23/20 [address] Provider [place] [id number] documented as of this encounter
--- OUTSIDE RECORDS SUMMARY | 2022-08-22 06:51 | XMS_ITS | Encounter Summary ---
:1940 Author Organization [place] Address [address] [facility] [place] [address] Care Team Providers Name Role Phone Timothy Smith MD Unavailable Graham Licona MD Primary Care Provider Encounter Details Date Type Department Care Team Description 08/11/2022 [facility] Heart Paro xysmal ventricular tachycardia; [facility] [place] Persistent atrial fibrillati on (H) [address] [place] [address] Social History Tobacco Use Types Packs/Day Years Used Date Smoking Tobacco: Never Smokeless Tobacco: Never Alcohol Use Standard Drinks/Week Comments No 0 (1 standard drink = 0.6 oz pure alcoho l) Sex Assigned at Date Recorded Not on file COVID-19 Exposure Response Date Recorded In the last 10 days, have you been in contact with No / Unsu re 08/11/2022 2:36 PM DIESEL MAINTENANCE ELECTRICIAN someone who was confirmed or suspected to have Coronavirus/COVID-19? documented as of this encounter Plan of Treatment Upcoming Encounters Date Type Specialty Care Team Description 08/31/2022 Appointment Respiratory Therapy Timothy Smith MD [address] [place] [id number] (Wo rk) 09/28/2022 Lab Lab 09/28/2022 Office Visit Cardiology Timothy Smith MD [address] [place] [phone] Trudi Grayson APRN UPHOLSTERER INSIDE [address] [place] [address] 11/16/2022 Ancillary Procedure Cardiology Timothy Smith MD [address] [place] [id number] (Wo rk) documented as of this encounter Procedures Procedure Name Priority Date/Time Associated Diagnosis Comme nts TSH Routine 08/11/2022 2:41 PM Persistent atrial Resu lts for this DIESEL MAINTENANCE ELECTRICIAN fibrillation (H) procedure a re in the results section. HEPATIC FUNCTION Routine 08/11/2022 2:41 PM Paroxysmal Resul ts for this PANEL DIESEL MAINTENANCE ELECTRICIAN ventricular procedure are i n tachycardia the results section. BASIC METABOLIC Routine 08/11/2022 2:41 PM Paroxysmal Result s for this PANEL DIESEL MAINTENANCE ELECTRICIAN ventricular procedure are i n tachycardia the results section. documented in this encounter Results (ABNORMAL) TSH (08/11/2022 2:41 PM DIESEL MAINTENANCE ELECTRICIAN) P athologist Signature TSH 72.13 (H) 0.30 - 4.20 08/11/2022 [facility] uIU/mL 3:22 PM DIESEL MAINTENANCE ELECTRICIAN Specimen Anatomical Collection Method / Collection Time Recei chikis Time (Source) Location / Volume Laterality Blood STRUCTURE OF LEFT Venipuncture / 08/11/2022 2:41 08/11 2:46 UPPER LIMB / Unknown PM DIESEL MAINTENANCE ELECTRICIAN PM DIESEL MAINTENANCE ELECTRICIAN Unknown Timothy Smith MD LAB - BLOOD ORDERABLES Performing Organization Address City/State/ZIP Code Phon [place] [address] Care Lab [address] Lab (1st floor, no room number) (ABNORMAL) Basic metabolic panel (08/11/2022 2:41 PM DIESEL MAINTENANCE ELECTRICIAN) Patholo gist Method Time Signature Sodium 142 136 - 145 08/11/2022 [facility] mmol/L 3:16 PM DIESEL MAINTENANCE ELECTRICIAN Potassium 4.3 3.4 - 5.3 08/11/2022 [facility] mmol/L 3:16 PM DIESEL MAINTENANCE ELECTRICIAN Chloride 98 98 - 107 08/11/2022 [facility] mmol/L 3:16 PM DIESEL MAINTENANCE ELECTRICIAN Carbon Dioxide 34 (H) 22 - 29 08/11/2022 LABORATORY (CO2) mmol/L 3:16 PM DIESEL MAINTENANCE ELECTRICIAN Anion Gap 10 7 - 15 08/11/2022 LABORATORY mmol/L 3:16 PM DIESEL MAINTENANCE ELECTRICIAN Urea Nitrogen 58.6 (H) 8.0 - 23.0 08/11/2022 LABORATORY mg/dL 3:16 PM DIESEL MAINTENANCE ELECTRICIAN Creatinine 2.29 (H) 0.67 - 08/11/2022 LABORATORY 1.17 mg/dL 3:16 PM DIESEL MAINTENANCE ELECTRICIAN Calcium 9.5 8.8 - 10.2 08/11/2022 LABORATORY mg/dL 3:16 PM DIESEL MAINTENANCE ELECTRICIAN Glucose 150 (H) 70 - 99 08/11/2022 LABORATORY mg/dL 3:16 PM DIESEL MAINTENANCE ELECTRICIAN GFR Estimate 28 (L) >60 08/11/2022 LABORATORY mL/min/1.7 3:16 PM DIESEL MAINTENANCE ELECTRICIAN 3m2 Comment: Effective September 20, 2021 eGF Rcr in adults is calculated using the 2020 CKD-EPI creatinine equation which includ es age and gender (Humberto et al., NEJM, DOI: 10.1056/JWIFtz0992303) Specimen Anatomical Collection Method / Collection Time Recei chikis Time (Source) Location / Volume Laterality Blood STRUCTURE OF LEFT Venipuncture / 08/11/2022 2:41 08/11 2:46 UPPER LIMB / Unknown PM DIESEL MAINTENANCE ELECTRICIAN PM DIESEL MAINTENANCE ELECTRICIAN Unknown Timothy Smith MD LAB - BLOOD ORDERABLES Performing Organization Address City/State/ZIP Code Phon [place] [address] Care Lab [address] Lab (1st floor, no room number) (ABNORMAL) Hepatic panel (08/11/2022 2:41 PM DIESEL MAINTENANCE ELECTRICIAN) [facility] Method Time Signature Protein Total 7.8 6.4 - 8.3 08/11/2022 LABORATORY g/dL 3:16 PM DIESEL MAINTENANCE ELECTRICIAN Albumin 4.1 3.5 - 5.2 08/11/2022 LABORATORY g/dL 3:16 PM DIESEL MAINTENANCE ELECTRICIAN Bilirubin Total 0.7 <=1.2 08/11/2022 LABORATORY mg/dL 3:16 PM DIESEL MAINTENANCE ELECTRICIAN Alkaline 52 40 - 129 08/11/2022 [facility] Phosphatase U/L 3:16 PM DIESEL MAINTENANCE ELECTRICIAN AST 30 10 - 50 08/11/2022 [facility] U/L 3:16 PM DIESEL MAINTENANCE ELECTRICIAN ALT 15 - 50 08/11/2022 [facility] U/L 3:16 PM DIESEL MAINTENANCE ELECTRICIAN Bilirubin Direct 0.35 (H) 0.00 - 08/11/2022 [facility] Y 0.30 3:16 PM DIESEL MAINTENANCE ELECTRICIAN mg/dL Specimen Anatomical Collection Method / Collection Time Recei chikis Time (Source) Location / Volume Laterality Blood STRUCTURE OF LEFT Venipuncture / 08/11/2022 2:41 08/11 2:46 UPPER LIMB / Unknown PM DIESEL MAINTENANCE ELECTRICIAN PM DIESEL MAINTENANCE ELECTRICIAN Unknown Timothy Smith MD LAB - BLOOD ORDERABLES Performing Organization Address City/State/ZIP Code Phon [place] [phone] Care Lab [address] Lab (1st floor, no room number) documented in this encounter Visit Diagnoses Diagnosis Paroxysmal ventricular tachycardia Persistent atrial fibrillation (H) Atrial fibrillation documented in this encounter Care Teams Forest Patrolman Relationship Specialty Start Date End Date Graham Licona MD PCP - General Family Medicine 06/30/21 [facility] [address] [place] [address] Timothy Smith MD Assigned Heart and Vascular 07/23/20 [address] Provider [place] [id number] documented as of this encounter
--- OUTSIDE RECORDS SUMMARY | 2022-08-22 06:51 | XMS_ITS | Encounter Summary ---
:1940 Author Organization [place] Address [address] [facility] [place] [address] Care Team Providers Name Role Phone Timothy Smith MD Unavailable Graham Licona MD Primary Care Provider Reason for Referral Diagnostic Imaging XR (Routine) - Pending Review Specialty Diagnoses / Procedures Referred By Contact Refer red To Contact Diagnoses Paroxysmal ventricular tachycardia Timothy Smith MD Procedures XR Chest [address] [place] [address] Referral ID Status Reason Start Date Expiration Date Visits V isits Requested Authorized [id number] Pending 02/08/2022 02/08/2023 1 1 Review RWRITING TECHNICIAN Reason for Visit Diagnostic Imaging XR (Routine) - Pending Review Specialty Diagnoses / Procedures Referred By Contact Refer red To Contact Diagnoses Paroxysmal ventricular tachycardia Timothy Smith MD Procedures XR Chest [address] [place] [address] Referral ID Status Reason Start Date Expiration Date Visits V isits Requested Authorized [id number] Pending 02/08/2022 02/08/2023 1 1 Review Encounter Details Date Type Department Care Team Description 08/11/2022 Hospital Encounter [facility] Timothy Smith MD Paroxysmal [facility] [address] ventricular [address] [address] tachycardia [address] [place] [address] [place], [place] [phone] [address] (Work) [phone] Social History Tobacco Use Types Packs/Day Years Used Date Smoking Tobacco: Never Smokeless Tobacco: Never Alcohol Use Standard Drinks/Week Comments No 0 (1 standard drink = 0.6 oz pure alcoho l) Sex Assigned at Date Recorded Not on file COVID-19 Exposure Response Date Recorded In the last 10 days, have you been in contact with No / Unsu re 08/11/2022 2:36 PM UNDERWRITING TECHNICIAN someone who was confirmed or suspected to have Coronavirus/COVID-19? documented as of this encounter Medications at Time of Discharge Medication Sig Dispensed Refills Start Date End Date ACYCLOVIR 400 MG OR TABS 1 TABLET 3 TIMES 30 6 04/25 DAILY-as need for Cold sores amiodarone (PACERONE) 200 Take 1 tablet (200 90 tablet 3 MG tabletIndications: mg) by mouth daily Sustained VT (ventricular tachycardia) apixaban ANTICOAGULANT Take 1 tablet (5 60 tablet 3 021 (ELIQUIS) 5 MG mg) by mouth 2 tabletIndications: times daily Persistent atrial fibrillation (H) atorvastatin (LIPITOR) 20 Take 20 mg by mouth 0 MG tablet daily biotin 1000 MCG TABS Take 1,000 mcg by 0 tablet mouth daily fenofibrate 160 MG tablet Take 160 mg by 0 mouth daily. glimepiride (AMARYL) 2 MG Take 2 mg by mouth 0 tablet 2 times daily loratadine (CLARITIN) 10 Take 10 mg by mouth 0 MG tablet daily metFORMIN (GLUCOPHAGE) Take 2 tablets 0 1 500 MG tabletIndications: (1,000 mg) by mouth [...] Coronary artery disease minutes as needed involving [place] [facility] for chest pain artery of [place] heart without angina pectoris omeprazole (PRILOSEC) 20 Take 20 mg by mouth [address] capsule daily tamsulosin (FLOMAX) 0.4 Take 0.4 mg by 0 MG capsule mouth every evening amiodarone (PACERONE) 200 Take 1 tablet (200 60 tablet 0 08/16/2022 MG tabletIndications: mg) by mouth daily Sustained VT (ventricular tachycardia) furosemide (LASIX) 40 MG Take 40 mg by mouth 0 08/16/2022 tablet daily documented as of this encounter Plan of Treatment Upcoming Encounters Date Type Specialty Care Team Description 08/31/2022 Appointment Respiratory Therapy Timothy Smith MD [address] [place] [id number] (Wo rk) 09/28/2022 Lab Lab 09/28/2022 Office Visit Cardiology Timothy Smith MD [address] [place] [address] Trudi Grayson APRN SIGHTSEEING GUIDE [address] [id number] 11/16/2022 Ancillary Procedure Cardiology Timothy Smith MD [address] [place] [id number] (Wo rk) documented as of this encounter Procedures Procedure Name Priority Date/Time Associated Diagnosis Comme nts XR CHEST 2 VIEWS Routine 08/11/2022 3:08 PM Paroxysmal Resul ts for this UNDERWRITING TECHNICIAN ventricular procedure are i n tachycardia the results section. documented in this encounter Results XR Chest 2 Views (08/11/2022 3:08 PM UNDERWRITING TECHNICIAN) Anatomical Region Laterality Modality Chest Radio Fluoroscopy Specimen (Source) Anatomical Location Collection Method / Collectio n Time Received Time / Laterality Volume Impressions 08/11/2022 4:27 PM UNDERWRITING TECHNICIAN IMPRESSION: There are no acute infiltrates. The cardiac silhouette is not enlarged. Pulmonary vasculature is u nremarkable. VALERIANO FITZGERALD MD Narrative 08/11/2022 4:27 PM UNDERWRITING TECHNICIAN CHEST TWO VIEWS 08/11/2022 3:08 PM HISTORY: [...] encounter Visit Diagnoses Diagnosis Paroxysmal ventricular tachycardia documented in this encounter Care Teams Specialist Physicians Relationship Specialty Start Date End Date Graham Licona MD PCP - General Family Medicine 06/30/21 [facility] [address] [place] [address] Timothy Smith MD Assigned Heart and Vascular 07/23/[address] Provider [place] [id number] documented as of this encounter
--- OUTSIDE RECORDS SUMMARY | 2022-08-22 06:51 | XMS_ITS | Encounter Summary ---
:1940 Author Organization [facility] Address [address] [facility] [facility] [place] [address] Care Team Providers Name Role Phone Timothy Smith MD Unavailable Graham Licona MD Primary Care Provider Encounter Details Date Type Department Care Team Description 08/11/2022 Travel Social History Tobacco Use Types Packs/Day Years Used Date Smoking Tobacco: Never Smokeless Tobacco: Never Alcohol Use Standard Drinks/Week Comments No 0 (1 standard drink = 0.6 oz pure alcoho l) Sex Assigned at Date Recorded Not on file COVID-19 Exposure Response Date Recorded In the last 10 days, have you been in contact with No / Unsu re 08/11/2022 2:36 PM SEED CORN PRODUCTION MANAGER someone who was confirmed or suspected to have Coronavirus/COVID-19? documented as of this encounter Plan of Treatment Upcoming Encounters Date Type Specialty Care Team Description 08/31/2022 Appointment Respiratory Therapy Timothy Smith MD [address] [place] [id number] (Wo rk) 09/28/2022 Lab Lab 09/28/2022 Office Visit Cardiology Timothy Smith MD [address] [place] [phone] Trudi Grayson APRN FREELANCE GRAPHIC DESIGNER [address] [id number] 11/16/2022 Ancillary Procedure Cardiology Timothy Smith MD [address] [place] [phone] (Wo rk) documented as of this encounter Visit Diagnoses Not on filedocumented in this encounter Care Teams Wash Worker Relationship Specialty Start Date End Date Graham Licona MD PCP - General Family Medicine 06/30/21 [facility] [address] [place] [address] Timothy Smith MD Assigned Heart and Vascular 07/23/20 [address] Provider [place] [id number] documented as of this encounter
--- OUTSIDE RECORDS SUMMARY | 2022-08-22 06:51 | XMS_ITS | Encounter Summary ---
:1940 Author Organization [facility] Address [address] [facility] [place] [address] Care Team Providers Name Role Phone Timothy [...] 08/31/2022 Appointment Respiratory Therapy Timothy Smith MD [address] [place] [phone] (Wo rk) 09/28/2022 Lab Lab 09/28/2022 Office Visit Cardiology Timothy Smith MD [address] [place] [id number] Trudi Grayson APRN INGOT STRIPPER [address] [id number] 11/16/2022 Ancillary Procedure Cardiology Timothy Smith MD [address] [place] [id number] (Wo rk) documented as of this encounter Visit Diagnoses Not on filedocumented in this encounter Care Teams Underwriter Solicitation Director Relationship Specialty Start Date End Date Graham Licona MD PCP - General Family Medicine 06/30/21 [facility] [address] [place] [address] Timothy Smith MD Assigned Heart and Vascular 07/23/20 [address] Provider [place] [id number] documented as of this encounter
--- OUTSIDE RECORDS SUMMARY | 2022-08-22 06:51 | XMS_ITS | Encounter Summary ---
:1940 Author Organization [place] Address [address] [facility] [address] Care Team Providers Name Role Phone Timothy [...] 2 count) [address] [place] [address] Referral ID Status Reason Start Date Expiration Date Visits V isits Requested Authorized [id number] Pending 05/04/2022 05/04/2023 10 10 Review Reason for Visit Reason Onset Date Comments Orders 05/03/2022 Cardiac device check in-clinic/ Extend order Encounter Details Date Type Department Care Team Description 05/03/2022 Telephone [facility] Heart Zarina Smith MD Orders (Cardiac device [facility] [place] [address] check in-clinic/ Extend [address] order ) [address] [place] [address] [place], [place] [phone] [address] (Work) [phone] Social History Tobacco Use Types Packs/Day Years [...] device appts. Appt made for pt in [place] for annual device check with Dr. Smith appt to follow. LM with date, time and place of appt and requested pt to call back to confirm. Orders previously entered for Amiodarone 6m follow up orders by Dr. Smith. Will fax to ord er to [place] [facility] at . [facility] . Telephone Encounter - Maritza Metzger - 05/03/2022 12:47 PM CDT [facility] Call Center Phone Message May a [...] he would prefer to schedule this in [place] as well. Please send an order to [facility]. Advising them to reach out to the Pt for scheduling. Action Taken: Other: [facility] Travel Screening: Not Applicable documented in this encounter Plan of Treatment Upcoming Encounters Date Type Specialty Care Team Description 08/31/2022 Appointment Respiratory Therapy Timothy Smith MD [address] [place] [phone] (Wo rk) 09/28/2022 Lab Lab 09/28/2022 Office Visit Cardiology Timothy Smith MD [address] [place] [address] Trudi Grayson APRN BOX OFFICE MANAGER [address] [id number] 11/16/2022 Ancillary Procedure Cardiology Timothy Smith MD [address] [place] [phone] (Wo rk) Pending Results Name Type Priority Associated Diagnoses Date/Ti me Cardiac Device Implantable Cardiac Routine Sustained VT 2021 2:50 PM Check - In Clinic Device (ventricular CONCRETE BOOM PUMP OPERATOR (Standing ORD 2 tachycardia) count) Paroxysmal ventricular tachycardia Cardiac pacemaker in situ Scheduled Orders Name Type Priority Associated Diagnoses [...] situ documented in this encounter Care Teams Forming Machine Upkeep Mechanic Relationship Specialty Start Date End Date Graham Licona MD PCP - General Family Medicine 06/30/[address] [facility] [address] [place] [address] Timothy Smith MD Assigned Heart and Vascular 07/23/20 [address] Provider [place] [id number] documented as of this encounter
--- OUTSIDE RECORDS SUMMARY | 2022-08-22 06:51 | XMS_ITS | Encounter Summary ---
:1940 Author Organization [place] Address [address] [place] [address] Care Team Providers Name Role Phone Timothy Smith MD Unavailable Graham Licona MD Primary Care Provider Reason for Referral CV Testing (Routine) - Pending Review Specialty Diagnoses / Procedures Referred By Contact Refer red To Contact Diagnoses Cardiac pacemaker in situ Timothy Smith MD Procedures Cardiac Device Check - Remote [address] [place] [address] Referral ID Status Reason Start Date Expiration Date Visits V isits Requested Authorized [id number] Pending 08/16/2022 08/16/2023 100 100 Review V Testing (Routine) - Pending Review Specialty Diagnoses / Procedures Referred By Contact Refer red To Contact Diagnoses Cardiac pacemaker in situ Timothy Smith MD Procedures Cardiac Device Check - In Clinic [address] [place] [address] Referral ID Status Reason Start Date Expiration Date Visits V isits Requested Authorized [id number] Pending 08/16/2022 08/16/2023 100 100 Review GRINDER Reason for Visit CV Testing (Routine) - Closed Specialty Diagnoses / Procedures Referred By Contact Refer red To Contact Diagnoses Cardiac pacemaker in situ Steven Canchola Procedures Cardiac Device Check - Remote (Standing ORD 4 count) [address] [place] [address] Referral ID Status Reason Start Date Expiration Date Visits Requ ested Visits Authorized [id number] Closed 03/20/2022 03/20/2023 100 100 Encounter Details Date Type Department Care Team Description 06/26/2022 Ancillary [facility] Steven Canchola Card iac pacemaker Procedure [facility] MD Jose in situ Heart Care [address] [place] [address] [place] [phone] (Wo rk) [address] [phone] Social History Tobacco Use Types Packs/Day Years Used Date Smoking Tobacco: Never Smokeless Tobacco: Never Alcohol Use Standard Drinks/Week Comments No 0 (1 standard drink = 0.6 oz pure alcoho l) Sex Assigned at Date Recorded Not on file documented as of this encounter Plan of Treatment Upcoming Encounters Date Type Specialty Care Team Description 08/31/2022 Appointment Respiratory Therapy Timothy Smith MD [address] [place] [phone] (Wo rk) 09/28/2022 Lab Lab 09/28/2022 Office Visit Cardiology Timothy Smith MD [address] [place] [id number] Trudi Grayson APRN INSURANCE CLAIMS EXAMINER [address] [place] [id number] 11/16/2022 Ancillary Procedure Cardiology Timothy Smith MD [address] [place] [phone] (Wo rk) Scheduled Orders Name Type Priority Associated Order Schedule Diagnoses Cardiac Device Implantable Cardiac Routine Cardiac pacemaker 1 00 Occurrences Check - In Clinic Device in situ starting 1 10/16/2021 until 2 Cardiac Device Implantable Cardiac Routine Cardiac pacemaker 1 00 Occurrences Check - Remote Device in situ starting 08/01 until 2 documented as of this encounter Procedures Procedure [...] CDT) Component Value Ref Test Analysis Performed AccuRev t Range Method Time At Signature Date Time [id number] [employer] Interrogation Session Implantable [employer] Pulse Generator Endo Tech Implantable D432 RESONATE EL [employer] Pulse Generator ICD Model Implantable [id number] [employer] Pulse Generator Serial Number Type Remote [employer] Interrogation Session Clinic Name [facility] [employer] Implantable Defibrillator [employer] Pulse Generator Type Implantable [id number] [employer] Pulse Generator Implant Date Implantable Lead [employer] Endo Tech Implantable Lead [address] [place] [employer] Model 4-Site S Implantable Lead [id number] [employer] Serial Number Implantable Lead [id number] [employer] Implant Date Implantable Lead Bipolar Lead [...] [employer] Pacing Threshold Pulse Width Battery Date [id number] [employer] Time of Measurements Battery Status Beginning of [employer] Service Battery 174 mo [employer] Remaining Longevity Battery 100 % [employer] Remaining Percentage Capacitor Charge Reformation [employer] Type Capacitor Last [id number] [employer] Charge Date Time Capacitor Charge 8.8 s [employer] Time Capacitor Charge Shock [employer] Type Capacitor Last [employer] Charge Date Time Capacitor Charge 6.8 s [employer] Time Capacitor Charge 41 J [employer] Energy Brandon Statistic [id number] [employer] Date Time Start Brandon Statistic [id number] [employer] Date Time End Brandon Statistic 3 % [employer] RV Percent Paced Therapy 6 [employer] Statistic Recent Shocks Delivered Therapy 0 [employer] Statistic Recent Shocks Aborted Therapy 26 [employer] Statistic Recent ATP Delivered Therapy [id number] [employer] Statistic Recent Date Time Start Therapy [id number] [employer] Statistic Recent Date Time End Therapy 6 [employer] Statistic Total Shocks Delivered Therapy 0 [employer] Statistic Total Shocks Aborted Therapy 34 [employer] Statistic Total ATP Delivered Therapy [id number] [employer] Statistic Total Date Time End Episode [...] VT-1 [employer] Statistic Vendor Type Category Episode [id number] [employer] Statistic Recent Date Time Start Episode [id number] [employer] Statistic Recent Date Time End Episode [id number] [employer] Statistic Recent Date Time Start Episode [id number] [employer] Statistic Recent Date Time End Episode [id number] [employer] Statistic Recent Date Time Start Episode [id number] [employer] Statistic Recent Date Time End Episode [id number] [employer] Statistic Recent Date Time Start Episode [id number] [employer] Statistic Recent Date Time End Episode [id number] [employer] Statistic Recent Date Time Start Episode [id number] [employer] Statistic Recent Date Time End Episode APM-195 [employer] Identifier Episode Type Periodic EGM [employer] Category Episode Date [id number] [employer] Time Episode RVAT-406 [employer] Identifier Episode Type Other [employer] Category Episode Date [id number] [employer] Time Anatomical Region Laterality Modality Other Specimen (Source) Anatomical Collection Method Collection Time Re ceived Time Location / / Volume Laterality 06/26/2022 12:55 AM CDT Narrative 06/27/2022 11:01 AM CDT [employer] Resonate (S) ICD Remote Device Check ROBOTIC TOY INVENTOR: 3% Mode: VVIR 50-130 ppm Presenting Rhythm: [...] situ documented in this encounter Care Teams Coal Tower Operator Relationship Specialty Start Date End Date Graham Licona MD PCP - General Family Medicine 06/30/21 [facility] [address] [place] [address] Timothy Smith MD Assigned Heart [facility] Vascular 07/23/[address] Provider [place] [id number] documented as of this encounter
--- OUTSIDE RECORDS SUMMARY | 2022-08-22 06:51 | XMS_ITS | Encounter Summary ---
:1940 Author Organization [place] Address [address] [facility] [place] [address] Care Team Providers Name Role Phone Timothy Smith MD Unavailable Graham Licona MD Primary Care Provider Reason for Visit Reason Comments Refill Request amiodarone Encounter Details Date Type Department Care Team Description 08/02/2022 Care Coordination [facility] Shashi Wilson Request Heart Clinic Patt Silverman RN (amiodarone) [address] [facility] [address] [place] [phone] Social History Tobacco Use Types Packs/Day Years Used Date Smoking Tobacco: Never Smokeless Tobacco: Never Alcohol Use Standard Drinks/Week Comments No 0 (1 standard drink = 0.6 oz pure alcoho l) Sex Assigned at Date Recorded Not on file documented as of this encounter Progress Notes Andra Wilson RN - 08/02/2022 4:22 PM CDT Refill requested: amiodarone [facility] Cardiology Refill Guideline reviewed. Medication does not meet criteria for refill due to amiodarone standard monitoring testing not up to date; last rx send 03/21/22 60 day supply ? is pt taking this rx?. Messaged to providers team for further review. Routed to EP team for review. Andra Wilson RN on 08/02/2022 at 4:24 PM Julianna Diamond RN - 08/02/2022 4:22 PM CDT 08/03/22 Pt has OV w Dr Smith on 08/16 , message sent to scheduling to contact pt to set up labs , CXR and PFTS . No refill sent at this time KHerroRN 1230 pm documented in this encounter Plan of Treatment Upcoming Encounters Date Type Specialty Care Team Description 08/31/2022 Appointment Respiratory Therapy Timothy Smith MD [address] [place] [phone] (Wo rk) 09/28/2022 Lab Lab 09/28/2022 Office Visit Cardiology Timothy Smith MD [address] [place] [address] Trudi Grayson APRN MULTIPLE SLIDE OPERATOR [address] [place] [address] 11/16/2022 Ancillary Procedure Cardiology Timothy Smith MD [address] [place] [address] (Wo rk) documented as of this encounter Visit Diagnoses Not on filedocumented in this encounter Care Teams Supervisor Hand Workers Relationship Specialty Start Date End Date Graham Licona MD PCP - General Family Medicine 06/30/21 [facility] [address] [place] [address] Timothy Smith MD Assigned Heart and Vascular 07/23/[address] Provider [place] [address] documented as of this encounter
--- OUTSIDE RECORDS SUMMARY | 2022-08-22 06:51 | XMS_ITS | Encounter Summary ---
:1940 Author Organization [place] Address [address] [facility] [place] [address] Care Team Providers Name Role Phone Timothy Smith MD Unavailable Graham Licona MD Primary Care Provider Reason for Visit Reason Comments Medication Question Re eliquis dose Encounter Details Date Type Department Care Team Description 05/29/2022 Documentation Only [facility] Catherine Aranda edication Question Heart Clinic Patt Crenshaw LPN (Re eliquis dose) [address] [facility] [address] [place] [phone] Social History [...] [address] [place] [address] (Wo rk) 09/28/2022 Lab Lab 09/28/2022 Office Visit Cardiology Timothy Smith MD [address] [place] [address] Trudi Grayson APRN SALES PRODUCER [address] [place] [address] 11/16/2022 Ancillary Procedure Cardiology Timothy Smith MD [address] [place] [address] (Wo rk) documented as of this encounter Visit Diagnoses Not on filedocumented in this encounter Care Teams Corner Block Cutter Relationship Specialty Start Date End Date Graham Licona MD PCP - General Family Medicine 06/30/21 [facility] [address] [place] [address] Timothy Smith MD Assigned Heart and Vascular 07/23/[address] Provider [place] [address] documented as of this encounter
--- OUTSIDE RECORDS SUMMARY | 2022-08-22 06:51 | XMS_ITS | Encounter Summary ---
:1940 Author Organization [place] Address [address] [facility] [address] Care Team Providers Name Role Phone Timothy Smith MD Unavailable Graham Licona MD Primary Care Provider Reason for Visit Reason Onset Date Comments Implantable Devices 05/01/2022 Encounter Details Date Type Department Care Team Description 05/01/2022 Telephone [facility] Eve Santos, Impla ntable Devices [facility] Heart RN Care [facility] [facility] [address] [place] [address] Social History Tobacco Use Types [...] 08/31/2022 Appointment Respiratory Therapy Timothy Smith MD [address] [place] [phone] (Wo wade) 09/28/2022 Lab Lab 09/28/2022 Office Visit Cardiology Timothy Smith MD [address] [place] [address] Trudi Grayson APRN BRANCH OFFICE MANAGER [address] [place] [address] 11/16/2022 Ancillary Procedure Cardiology Timothy Smith MD [address] [place] [address] (Wo rk) documented as of this encounter Visit Diagnoses Not on filedocumented in this encounter Care Teams Edge Trimmer Mechanic Relationship Specialty Start Date End Date Graham Licona MD PCP - General Family Medicine 06/30/21 [facility] [address] [place] [address] Timothy Smith MD Assigned Heart and Vascular 07/23/20 [address] Provider [place] [address] documented as of this encounter
--- OUTSIDE RECORDS SUMMARY | 2022-08-22 06:51 | XMS_ITS | Clinical Summary ---
:1940 Author Organization [facility] [place] [address] Care Team Providers Name Role Phone Unavailable [...] capsule mouth once daily after a meal. omeprazole (PRILOSEC) Take 20 mg by 0 [...] EVERY tabletIndications: DAY Hyperlipidemia, unspecified hyperlipidemia type acyclovir (ZOVIRAX) 400 TAKE ONE TABLET 21 Tablet 0 07/06/2022 Active mg tabletIndications: BY MOUTH THREE Recurrent cold sores TIMES A DAY NEEDED FOR COLD SORES Active Problems Problem Noted Date Acute respiratory failure with hypoxia and hypercapnia 02/22/2022 Hemorrhagic shock 02/22/2022 Coronary artery disease involving kletsel dehe wintun coronary tiago ry of kletsel dehe wintun heart 06/20/2021 with angina pectoris Stage 3a [...] - ocular 10/12/2016 Coronary artery disease involving kletsel dehe wintun coronary tiago ry of kletsel dehe wintun heart 02/11/2016 without angina pectoris Lumbar foraminal [...] Name Administration Dates Next Due COVID-19 vaccine ([employer] 12/04/2020, 11/13/2020 30mcg/0.3mL) PF, MDV Influenza Virus, [...] Group MEDICARE PART B MEDICARE PART B [id number] 2003-Prese ATTN: CLAIMS - HB USE ONLY HB ONLY nt [address] [place] [address] MEDICARE PART A MEDICARE PART A [id number] 2003-Prese ATTN: CLAIMS - HB USE ONLY HB ONLY nt [address] [place] [address] BLUE CROSS BLUE CROSS [id number] 2016-Presen [address] [address] [place] [address] [place] ONLY [id number] BLUE CROSS MR BLUE CROSS [id number] 2016-Presen [address] [address] [place] MR [place] ONLY [id number] [facility] Other 10/01/2000 [address] [employer] [place] (Work) [address] [place] [address] Advance Directives Latest Code Status on File Code Status Date Activated Date Inactivated Comments Full Code 02/22/2022 2:53 PM 03/02/2022 1:31 PM Code Status Discussion: Reviewed Preferences Full Code 02/21/2022 4:37 PM 02/22/2022 2:53 PM Code Status Discussion: Unable to Assess Preferences, Provid er to review later
--- OUTSIDE RECORDS SUMMARY | 2022-08-22 06:51 | XMS_ITS ---
:1940 Author Organization [place] Address [address] [facility] [place] [address] Care Team Providers Name Role Phone Timothy Smith MD Unavailable Graham Licona MD Primary Care Provider Active Problems Problem Noted Date Heart failure, [...] flutter Sleep apnea Coronary artery disease A-fib Current Oncology Plans No current plan information found. Past Plans No past plan information found. Radiation Treatments No radiation treatments are documented for this patient in [facility]. Treatments may have been administered in another system. Lifetime Dose Tracking Chemical Lifetime Dose Automatic Entry Manual Entry Air Kerma 64 mGy 0 mGy 64 mGy Margie DAP 8,803 mGy-cm2 0 mGy-cm2 8,803 mGy-cm2
--- OUTSIDE RECORDS SUMMARY | 2022-08-22 06:51 | XMS_ITS | Encounter Summary ---
:1940 Author Organization [facility] Address [address] [place] [address] Care Team Providers Name Role Phone Timothy Smith MD Unavailable Graham Licona MD Primary Care Provider Reason for Referral Consultation (Routine: Next available opening) - Pending Review Specialty Diagnoses / Procedures Referred By Contact Refer red To Contact Cardiovascular Disease Diagnoses Paroxysmal ventricular tachycardia Hypothyroidism due to medication Timothy Smith MD [address] [place] [address] Referral ID Status Reason Start Date Expiration Date Visits V isits Requested Authorized [id number] Pending 08/16/2022 08/16/2023 1 1 Review RINTENDENT COMPRESSOR STATIONS Reason for Visit Reason Comments Heart Problem paroxysmal VT Consultation (Routine: Next available opening) - Pending Review Specialty Diagnoses / Procedures Referred By Contact Refer red To Contact Cardiovascular Disease Diagnoses Paroxysmal ventricular tachycardia Timothy Smith MD [address] [place] [address] Referral ID Status Reason Start Date Expiration Date Visits V isits Requested Authorized [id number] Pending 02/08/2022 02/08/2023 1 1 Review Encounter Details Date Type Department Care Team Description 08/16/2022 Office Visit [facility] Timothy Smith MD Hypothyroidism due to medication (Primar y Dx); [facility] [address] Paroxysmal v entricular tachycardia; [address] Heart failure, unspecified HF chronicity , unspecified heart failure type (H); [address] [place], [place] [address] Type 2 diabetes mellitus with complicati on (H); [address] Acute respiratory failure wi th hypoxia and hypercapnia (H); [place], [place] (Work) Malignant melanoma, unspecified site (H) ; [address] Stage 3a chronic kidney dise ase (H); Morbid obesity (H); Coronary artery disease involving iqugmiut coronary artery of iqugmiut heart with angina pectoris (H) Social History Tobacco Use Types Packs/Day Years Used Date Smoking Tobacco: Never Smokeless Tobacco: Never Alcohol Use Standard Drinks/Week Comments No 0 (1 standard drink = 0.6 oz pure alcoho l) Sex Assigned at Date Recorded Not on file COVID-19 Exposure Response Date Recorded In the last 10 days, have you been in contact with No / Unsu re 08/16/2022 2:19 PM SUPERINTENDENT COMPRESSOR STATIONS someone who was confirmed or suspected to have Coronavirus/COVID-19? documented as of this encounter Last Filed Vital Signs Vital Sign Reading Time Taken Comments Blood Pressure 132/66 08/16/2022 2:46 PM SUPERINTENDENT COMPRESSOR STATIONS Pulse 68 08/16/2022 2:46 PM SUPERINTENDENT COMPRESSOR STATIONS Temperature - - Respiratory Rate - - Oxygen Saturation - - Inhaled Oxygen Concentration - - Weight 114 kg (251 lb 4.8 oz) 08/16/2022 2:46 PM SUPERINTENDENT COMPRESSOR STATIONS Height 174 cm (5' 8.5) 08/16/2022 2:46 PM SUPERINTENDENT COMPRESSOR STATIONS Body Mass Index 37.65 08/16/2022 2:46 PM SUPERINTENDENT COMPRESSOR STATIONS documented in this encounter Progress Notes Timothy Smith MD - 08/16/2022 3:19 PM CST Service Date: 08/16/2022 CLINIC NOTE HISTORY OF PRESENT ILLNESS: I saw Mr. Villa for followup of atrial fibrillation and ventricular tachycardia. He is an 81-year-old white male who initially had a pacemaker implanted for sinus node dysfunction. He subsequently developed atrial fibrillation. Later on, he had VT and received a pacemaker upgrade to ICD. He received ICD shocks because of recurrent VT. Over the last few months, he has been on amiodarone for prevention of recurrent VT. So far, that has been successful. The patient had hip surgery successfully and now no longer has pain. He complains about loss of taste. There is no chest pain or shortness of breath. He is on a combination of Bumex and metolazone for diuresis. PHYSICAL EXAMINATION: VITAL SIGNS: Blood pressure 132/66, heart rate 68 beats per minute, body weight down to 251 pounds. GENERAL: The patient uses a walker. EYES/ENT: Unremarkable. LUNGS: Clear. CARDIAC: Rhythm was regular, and heart sounds were normal without murmur. ABDOMEN: Severe obesity. EXTREMITIES: No pedal edema. LABORATORY: His TSH on 08/11 reported 72.13. ASSESSMENT AND RECOMMENDATIONS: Mr. Villa seems to be doing quite well from the Cardiology point of view. His ICD has not detected recurrent VT while he is on amiodarone. He has a very high TSH, suggesting severe hypothyroidism. I initiated levothyroxine 50 mcg p.o. daily, and I asked him to come backfor a repeat TSH in about a month. Because amiodarone is essential for control of VT, we will managehypothyroidism by using the replacement therapy. I have ordered a Cardiology [facility] visit in 1 month. From there, he will have future followup for amiodarone every 6 months in the Cardiology Clinic. The patient is on a strong combination of diuretics. Since Cardiology did not prescribe those medications, I would leave the management of diuretics up to the provider who prescribed those medications. His hypothyroidism medication could be titrated by his primary care physician gradually in the future. cc: [place] [address] Timothy Smith MD MT: [email or web address] Name: RADHA VILLA Account: [id number] : 1940 Service Date: 08/16/2022 Document: [id number] RINTENDENT COMPRESSOR STATIONS Timothy Smith MD - 08/16/2022 3:15 PM CST HPI and Plan: See dictation Orders Placed This Encounter Procedures ??? TSH Orders Placed This Encounter Medications ??? fluticasone (FLONASE) 50 MCG/ACT nasal spray Sig: [place] 1 spray into both nostrils daily ??? metolazone (ZAROXOLYN) 5 MG tablet Sig: Take 5 mg by mouth every other day ??? Acetaminophen (TYLENOL ARTHRITIS PAIN PO) Sig: Take by mouth 2 times daily ??? bumetanide (BUMEX) 2 MG tablet Sig: Take 2 mg by mouth daily CURRENTLY NOT TAKING ??? levothyroxine (SYNTHROID/LEVOTHROID) 50 MCG tablet Sig: Take 1 tablet (50 mcg) by mouth daily Dispense: 60 tablet Refill: 3 Medications Discontinued During This Encounter Medication Reason ??? amiodarone (PACERONE) 200 MG tablet Medication Reconciliation Clean Up ??? furosemide (LASIX) 40 MG tablet Medication Reconciliation Clean Up Encounter Diagnoses Name Primary? Paroxysmal ventricular tachycardia ??? Hypothyroidism due to medication Yes ??? Heart failure, unspecified HF chronicity, unspecified heart failure type (H) ??? Type 2 diabetes mellitus with complication (H) ??? Acute respiratory failure with hypoxia and hypercapnia (H) ??? Malignant melanoma, unspecified site (H) ??? Stage 3a chronic kidney disease (H) ??? Morbid obesity (H) ??? Coronary artery disease involving iqugmiut coronary artery of iqugmiut heart with angina pectoris (H) CURRENT MEDICATIONS: Current Outpatient Medications Medication Sig Dispense Refill ??? Acetaminophen (TYLENOL ARTHRITIS PAIN PO) Take by mouth 2 times daily ??? ACYCLOVIR 400 MG OR TABS 1 [...] Take 160 mg by mouth daily. ??? fluticasone (FLONASE) 50 MCG/ACT nasal spray [place] 1 spray into both nostrils daily ??? glimepiride (AMARYL) 2 MG tablet Take 2 mg by mouth 2 times daily ??? levothyroxine (SYNTHROID/LEVOTHROID) 50 MCG tablet Take 1 tablet (50 mcg) by mouth daily 60 tablet 3 ??? loratadine (CLARITIN) 10 MG tablet Take 10 mg by mouth daily ??? metolazone (ZAROXOLYN) 5 MG tablet Take 5 mg by mouth every other day ??? metoprolol succinate ER (TOPROL-XL) 50 MG [...] 0.4 mg by mouth every evening ??? bumetanide (BUMEX) 2 MG tablet Take 2 mg by mouth daily CURRENTLY NOT TAKING (Patient not taking: Reported on 08/16/2022) ??? metFORMIN (GLUCOPHAGE) 500 MG tablet Take 2 tablets (1,000 mg) by mouth 2 times daily (with meals) (Patient not taking: Reported on 02/08/2022) ALLERGIES Allergies Allergen Reactions ??? Pravastatin Rash ??? Adhesive Tape Rash PAST MEDICAL HISTORY: Past Medical History: Diagnosis Date ??? Arthritis ??? Atrial flutter (H) sp ablation 02/27/2013 ??? Coronary artery disease sp CABG ??? Hypertension ??? Hypothyroidism ??? Melanoma (H) right eye ??? Mumps ??? Persistent atrial fibrillation (H) ??? Sinus node dysfunction (H) with recurrent near syncope, PM 02/03/2016 ??? Sleep apnea ??? Sustained VT (ventricular tachycardia) 01/2021 ??? Type 2 diabetes mellitus with complication (H) 08/16/2022 ??? Type II diabetes mellitus (H) PAST SURGICAL HISTORY: Past Surgical History: Procedure Laterality Date ??? CATHETER, ABLATION 01/2013 Atrial flutter ??? CHOLECYSTECTOMY ??? EP ICD N/A 07/04/2021 Procedure: Implantable Cardioverter-Defibrillator (ICD); Surgeon: Chris De Leon MD; Location: HEART CARDIAC DRINK WAITER ??? EP PACEMAKER 02/04/2016 [facility] ??? HC [...] None Tobacco Use ??? Smoking status: Never ??? Smokeless tobacco: Never Substance and Sexual Activity ??? Alcohol use: No ??? Drug use: No Other Topics Concern ??? Parent/sibling w/ CABG, [place] or angioplasty before 65F 55M? No ??? Caffeine Concern Yes Comment: 2 cups coffe ??? Sleep Concern No ??? Stress Concern No ??? Special Diet No ??? Exercise No Review of Systems: Skin: not assessed Eyes: not assessed ENT: not assessed Respiratory: Positive for sleep apnea;CPAP Cardiovascular: Positive for;edema energy is fair Gastroenterology: not assessed Genitourinary: not assessed Musculoskeletal: not assessed Neurologic: not assessed Psychiatric: not assessed Heme/Lymph/Imm: not assessed Endocrine: not assessed Physical Exam: Vitals: BP 132/66 Pulse 68 Ht 1.74 m (5' 8.5) Wt 114 kg (251 lb 4.8 oz) BMI 37.65 kg/m?? Constitutional: cooperative, alert and oriented, well [...] 3 CC Timothy Smith MD [address] [place] [address] RINTENDENT COMPRESSOR STATIONS documented in this encounter Plan of Treatment Upcoming Encounters Date Type Specialty Care Team Description 08/31/2022 Appointment Respiratory Therapy Timothy Smith MD [address] [place] [address] (Wo rk) 09/28/2022 Lab Lab 09/28/2022 Office Visit Cardiology Timothy Smith MD [address] [place] [address] Trudi Grayson, [employer] MEDIA PLANNER / BUYER [address] [place] [address] 11/16/2022 Ancillary Procedure Cardiology Timothy Smith MD [address] [place] [address] (Wo rk) Scheduled Orders Name Type Priority Associated Diagnoses Order S chedule TSH Lab Routine Paroxysmal ventr icular tachycardia Expected: 08/16/2022 Hypothyroidism due to medica tion (Approximate), Expires: 09/15/2022 Scheduled Referrals Name Type Priority Associated Diagnoses Order S chedule Follow-Up with Referral Routine: Next Paroxysmal Expected: Cardiology - [facility] available opening ventricular 2021 tachycardia (Approximate), Hypothyroidism due Expires: to medication 08/16/2023 documented as of this encounter Procedures Procedure Name Priority Date/Time Associated Diagnosis Comme nts EKG 12-LEAD Routine 08/16/2022 4:09 PM Paroxysmal Results f or this COMPLETE W/READ - SUPERINTENDENT COMPRESSOR STATIONS ventricular procedure are in CLINICS tachycardia the results section. documented in this encounter Results EKG 12-lead complete w/read (Future)- to be scheduled (08/16/2022 4:09 PM SUPERINTENDENT COMPRESSOR STATIONS) Narrative This result has an attachment that is no t available. Timothy Smith MD ECG ORDERABLES documented in this encounter Visit Diagnoses Diagnosis Hypothyroidism due to medication - Prima ry Paroxysmal ventricular tachycardia Heart failure, unspecified HF chronicity , unspecified heart failure type (H) Type 2 diabetes mellitus with complicati on (H) Acute respiratory failure with hypoxia a nd hypercapnia (H) Malignant melanoma, unspecified site (H) Stage 3a chronic kidney disease (H) Morbid obesity (H) Morbid obesity Coronary artery disease involving iqugmiut coronary artery of iqugmiut heart with angina pectoris (H) documented in this encounter Care Teams Hansard Reporter Relationship Specialty Start Date End Date Graham Licona MD PCP - General Family Medicine 06/30/21 [facility] [address] [place] [address] Timothy Smith MD Assigned Heart and Vascular 07/23/20 [address] Provider [place] [id number] documented as of this encounter
--- OUTSIDE RECORDS SUMMARY | 2022-08-22 06:52 | XMS_ITS | Encounter Summary ---
:1940 Author Organization [facility] Address [address] [place] [address] Care Team Providers Name Role Phone Timothy Smith MD Unavailable Graham Licona MD Primary Care Provider Reason for Visit CV Testing (Routine) - Closed Specialty Diagnoses / Procedures Referred By Contact Refer red To Contact Diagnoses Cardiac pacemaker in situ Chris De Leon MD Procedures Cardiac Device Check - In Clinic (Post implant follow up) [address] [place] [address] Referral ID Status Reason Start Date Expiration Date Visits Requ ested Visits Authorized [id number] Closed 07/05/2021 07/05/2022 1 1 Encounter Details Date Type Department Care Team Description 08/24/2021 Ancillary Procedure [facility] Chris De Leon, Cardiac pacemaker in [facility] situ Heart Care [address] [facility] [address] [place] [address] [place] [address] [phone] Social History Tobacco Use Types Packs/Day Years Used Date Smoking Tobacco: Never Smokeless Tobacco: Never Alcohol Use Standard Drinks/Week Comments No 0 (1 standard drink = 0.6 oz pure alcoho l) Sex Assigned at Date Recorded Not on file COVID-19 Exposure Response Date Recorded In the last month, have you been in contact with No / Unsure 08/24/2021 10:48 AM VOICE ENGINEER someone who was confirmed or suspected to have Coronavirus / COVID-19? documented as of this encounter Plan of Treatment Upcoming Encounters Date Type Specialty Care Team Description 08/31/2022 Appointment Respiratory Therapy Timothy Smith MD [address] [place] [address] (Wo rk) 09/28/2022 Lab Lab 09/28/2022 Office Visit Cardiology Timothy Smith MD [address] [place] [address] Trudi Grayson APRN NURSE SITTER [address] [place] [id number] 11/16/2022 Ancillary Procedure Cardiology Timothy Smith MD [address] [place] [id number] (Wo rk) documented as of this encounter Procedures Procedure Name Priority Date/Time Associated Comments Diagnosis ICD DEVICE Routine 08/24/2021 11:02 Cardiac pacemaker Result s for this PROGRAMMING EVAL, AM VOICE ENGINEER in situ procedure are in DUAL LEAD ICD the results section. documented in this encounter Results ICD DEVICE PROGRAMMING EVAL, DUAL LEAD ICD (08/24/2021 11:02 AM VOICE ENGINEER) Component Value Ref Test Analysis Performed PathDownstream t Range Method Time At Signature Date Time [id number] [employer] Interrogation Session Implantable [employer] Pulse Generator Certified Respiratory Therapist Implantable D432 RESONATE EL [employer] Pulse Generator ICD Model Implantable [id number] [employer] Pulse Generator Serial Number Type In Clinic [facility] Interrogation Session Clinic Name [facility] [employer] Implantable Defibrillator [employer] Pulse Generator Type Implantable [id number] [employer] Pulse Generator Implant Date Implantable Lead [employer] Certified Respiratory Therapist Implantable Lead 0272 Lucinda [employer] Model 4-Site S Implantable Lead [id number] [employer] Serial Number Implantable Lead [id number] [employer] Implant Date Implantable Lead Bipolar Lead [employer] Polarity Type Implantable Lead UNKNOWN [employer] Location Detail 1 Implantable Lead Right Ventricle MEDTRON IC Location [place] Setting VVIR [employer] Mode (NBG Code) [place] Setting 50 {beats}/ [employer] Lower Rate Limit min [place] Setting 130 {beats}/ [employer] Maximum Sensor min [...] [employer] Pacing Threshold Pulse Width Battery Date [id number] [employer] Time of Measurements Battery Status Beginning of [employer] Service Battery 174 mo [employer] Remaining Longevity Battery 100 % [employer] Remaining Percentage Capacitor Charge Reformation [employer] Type Capacitor Last [id number] [employer] Charge Date Time Capacitor Charge 9.1 s [employer] Time Brandon Statistic [id number] [employer] Date Time Start Brandon Statistic [id number] [employer] Date Time End Brandon Statistic 4 % [employer] RV Percent Paced Therapy 0 [employer] Statistic Recent Shocks Delivered Therapy 0 [employer] Statistic Recent Shocks Aborted Therapy 8 [employer] Statistic Recent ATP Delivered Therapy [id number] [employer] Statistic Recent Date Time Start Therapy [id number] [employer] Statistic Recent Date Time End Therapy 0 [employer] Statistic Total Shocks Delivered Therapy 0 [employer] Statistic Total Shocks Aborted Therapy 8 [employer]IC Statistic Total ATP Delivered Therapy 10382945790097 [employer] Statistic Total Date Time End Episode [...] VT-1 [employer] Statistic Vendor Type Category Episode [id number] [employer] Statistic Recent Date Time Start Episode [id number] [employer] Statistic Recent Date Time End Episode [id number] [employer] Statistic Recent Date Time Start Episode [id number] [employer] Statistic Recent Date Time End Episode [employer] Statistic Recent Date Time Start Episode [id number] [employer] Statistic Recent Date Time End Episode [id number] [employer] Statistic Recent Date Time Start Episode [employer] Statistic Recent Date Time End Episode [id number] [employer] Statistic Recent Date Time Start Episode [id number] [employer] Statistic Recent Date Time End Episode APM-11 [employer] Identifier Episode Type Periodic EGM [employer] Category Episode Date [employer] Time Anatomical Region Laterality Modality Other Specimen (Source) Anatomical Collection Method Collection Time Re ceived Time Location / / Volume Laterality 08/24/2021 11:09 AM VOICE ENGINEER Narrative 09/06/2021 1:31 PM VOICE ENGINEER [employer] Resonate (S) ICD Device Check Patient seen in clinic for device evalua tion and iterative programming. ?? CUSHION ASSEMBLER: 4% ?? Mode: VVIR 50-130 ?? Underlying [...] with V ra barbara of 200-210 for [id number] and 5ivx5bil. Both episodes received ATPx6 a nd was successful after the 6th attempt. VT episode on 08/01/21 at 0923 E GM shows VT for [id number] with V rates of 180-210bpm, ATPx7 was delivered and was successful after the 7th ATP attempt. The other episode of VT occ urred on 07/23/21 at 0832 EGM shows [id number] of VT with V rates of 200 [...] situ documented in this encounter Care Teams Ground Worker Relationship Specialty Start Date End Date Graham Licona MD PCP - General Family Medicine 06/30/21 [facility] [address] [place] [address] Timothy Smith MD Assigned Heart and Vascular 07/23/[address] Provider [place] [id number] documented as of this encounter
--- OUTSIDE RECORDS SUMMARY | 2022-08-22 06:52 | XMS_ITS | Encounter Summary ---
:1940 Author Organization [place] Address [address] [place] [address] Care Team Providers Name Role Phone Timothy Smith MD Unavailable Graham Licona MD Primary Care Provider Reason for Referral Consultation (Routine: Next available opening) - Pending Review Specialty Diagnoses / Procedures Referred By Contact Refer red To Contact Cardiovascular Disease Diagnoses Paroxysmal ventricular tachycardia Timothy Smith MD [address] [place] [address] Referral ID Status Reason Start Date Expiration Date Visits V isits Requested Authorized [id number] Pending 02/08/2022 02/08/2023 1 1 Review iagnostic Imaging XR (Routine) - Pending Review Specialty Diagnoses / Procedures Referred By Contact Refer red To Contact Diagnoses Paroxysmal ventricular tachycardia Timothy Smith MD Procedures XR Chest [address] [place] [address] Referral ID Status Reason Start Date Expiration Date Visits V isits Requested Authorized [id number] Pending 02/08/2022 02/08/2023 1 1 Review Reason for Visit Reason Comments Annual Visit Annual f/up (Routine) - Closed Specialty Diagnoses / Procedures Referred By Contact Refer red To Contact Diagnoses Sustained VT (ventricular tachycardia) Timothy Smith MD [address] [place] [address] Referral ID Status Reason Start Date Expiration Date Visits Requ ested Visits Authorized [id number] Closed 03/23/2021 03/23/2022 1 1 Encounter Details Date Type Department Care Team Description 02/08/2022 Office Visit [facility] Timothy Smith MD Persistent atrial fibrillation (H) (Prim arnie Dx); [facility] Clinic [address] Paroxysmal ventricular tachycardia (H) [place] [address] [address] [place], [place] [address] [address] [place] (Work) [address] Social History Tobacco Use [...] 6 months. cc: Juan José Licona MD [facility] [address] [place] [address] Timothy Smith MD MT: angela Name: RADHA VILLA Account: [id number] : 1940 Service Date: 02/08/2022 Document: [id number] Timothy Smith MD - 02/08/2022 3:15 PM [...] Chris De Leon MD; Location: HEART CARDIAC TECHNICAL EXPERT ??? EP PACEMAKER 02/04/2016 [facility] ??? HC [...] MD [address] [place] [address] documented in this encounter Plan of Treatment Upcoming Encounters Date Type Specialty Care Team Description 08/31/2022 Appointment Respiratory Therapy Timothy Smith MD [address] [place] [id number] (Wo rk) 09/28/2022 Lab Lab 09/28/2022 Office Visit Cardiology Timothy Smith MD [address] [place] [phone] Trudi Grayson APRN BICYCLE SUBASSEMBLER [address] [place] [id number] 11/16/2022 Ancillary Procedure Cardiology Timothy Smith MD [address] [place] [phone] (Wo rk) Scheduled Orders Name Type Priority Associated Diagnoses Order S chedule Pulmonary function test PFT Routine Paroxysmal ventri cular Expected: 08/07/2022 tachycardia (H) (Approximate ), Expires: 2022 Scheduled Referrals Name Type Priority Associated Diagnoses Order S chedule Follow-Up with Referral Routine: Next Paroxysmal Expected: Cardiology EP available opening ventricular tachycardia (H) (Approximate ), Expires: 02/08/2023 documented as of this encounter Procedures Procedure Name Priority Date/Time Associated Diagnosis Comme nts EKG 12-LEAD Routine 02/09/2022 12:49 Persistent atrial Result s for this COMPLETE W/READ - PM CDT fibrillation (H) proced ure are in CLINICS the results section. documented in this encounter Results EKG 12-lead complete w/read (Future)- to be scheduled (08/16/2022 4:09 PM KINESIOLOGY PROFESSOR) Narrative This result has an attachment that is no t available. Timothy Smith MD ECG ORDERABLES XR Chest 2 Views (08/11/2022 3:08 PM KINESIOLOGY PROFESSOR) Anatomical Region Laterality Modality Chest Radio Fluoroscopy Specimen (Source) Anatomical Location Collection Method / Collectio n Time Received Time / Laterality Volume Impressions 08/11/2022 4:27 PM KINESIOLOGY PROFESSOR IMPRESSION: There are no acute infiltrates. The cardiac silhouette is not enlarged. Pulmonary vasculature is u nremarkable. VALERIANO FITZGERALD MD Narrative 08/11/2022 4:27 PM KINESIOLOGY PROFESSOR CHEST TWO VIEWS 08/11/2022 3:08 PM HISTORY: [...] ORDER ANN (ABNORMAL) TSH (08/11/2022 2:41 PM KINESIOLOGY PROFESSOR) P athologist Signature TSH 72.13 (H) 0.30 - 4.20 08/11/2022 [facility] uIU/mL 3:22 PM KINESIOLOGY PROFESSOR Specimen Anatomical Collection Method / Collection Time Recei chikis Time (Source) Location / Volume Laterality Blood STRUCTURE OF LEFT Venipuncture / 08/11/2022 2:41 08/11 2:46 UPPER LIMB / Unknown PM KINESIOLOGY PROFESSOR PM KINESIOLOGY PROFESSOR Unknown Timothy Smith MD LAB - BLOOD ORDERABLES Performing Organization Address City/State/ZIP Code Ph[place] [address] Care [facility] [address] Lab (1st floor, no room number) (ABNORMAL) Basic metabolic panel (08/11/2022 2:41 PM KINESIOLOGY PROFESSOR) Patholo gist Method Time Signature Sodium 142 136 - 145 08/11/2022 [facility] mmol/L 3:16 PM KINESIOLOGY PROFESSOR Potassium 4.3 3.4 - 5.3 08/11/2022 [facility] mmol/L 3:16 PM KINESIOLOGY PROFESSOR Chloride 98 98 - 107 08/11/2022 [facility] mmol/L 3:16 PM KINESIOLOGY PROFESSOR Carbon Dioxide 34 (H) 22 - 29 08/11/2022 LABORATORY (CO2) mmol/L 3:16 PM KINESIOLOGY PROFESSOR Anion Gap 10 7 - 15 08/11/2022 [facility] mmol/L 3:16 PM KINESIOLOGY PROFESSOR Urea Nitrogen 58.6 (H) 8.0 - 23.0 08/11/2022 [facility] mg/dL 3:16 PM KINESIOLOGY PROFESSOR Creatinine 2.29 (H) 0.67 - 08/11/2022 [facility] 1.17 mg/dL 3:16 PM KINESIOLOGY PROFESSOR Calcium 9.5 8.8 - 10.2 08/11/2022 [facility] mg/dL 3:16 PM KINESIOLOGY PROFESSOR Glucose 150 (H) 70 - 99 08/11/2022 [facility] mg/dL 3:16 PM KINESIOLOGY PROFESSOR GFR Estimate 28 (L) >60 08/11/2022 LAB[facility]ATORY mL/min/1.7 3:16 PM KINESIOLOGY PROFESSOR 3m2 Comment: Effective September 20, 2021 eGF Rcr in adults is calculated using the 2020 CKD-EPI creatinine equation which includ es age and gender (Humberto et al., NEJ, DOI: 10.1056/TNSGnz4789745) Specimen Anatomical Collection Method / Collection Time Recei chikis Time (Source) Location / Volume Laterality Blood STRUCTURE OF LEFT Venipuncture / 08/11/2022 2:41 08/11 2:46 UPPER LIMB / Unknown PM KINESIOLOGY PROFESSOR PM KINESIOLOGY PROFESSOR Unknown Timothy Smith MD LAB - BLOOD ORDERABLES Performing Organization Address City/State/ZIP Code [place] [address] Care Lab [address] Lab (1st floor, no room number) (ABNORMAL) Hepatic panel (08/11/2022 2:41 PM KINESIOLOGY PROFESSOR) [facility] gist Method Time Signature Protein Total 7.8 6.4 - 8.3 08/11/2022 [facility] g/dL 3:16 PM KINESIOLOGY PROFESSOR Albumin 4.1 3.5 - 5.2 08/11/2022 [facility] g/dL 3:16 PM KINESIOLOGY PROFESSOR Bilirubin Total 0.7 <=1.2 08/11/2022 [facility] mg/dL 3:16 PM KINESIOLOGY PROFESSOR Alkaline 52 40 - 129 08/11/2022 [facility] Phosphatase U/L 3:16 PM KINESIOLOGY PROFESSOR AST 30 10 - 50 08/11/2022 [facility] U/L 3:16 PM KINESIOLOGY PROFESSOR ALT 15 10 - 50 08/11/2022 [facility] U/L 3:16 PM KINESIOLOGY PROFESSOR Bilirubin Direct 0.35 (H) 0.00 - 08/11/2022 [facility] Y 0.30 3:16 PM KINESIOLOGY PROFESSOR mg/dL Specimen Anatomical Collection Method / Collection Time Recei chikis Time (Source) Location / Volume Laterality Blood STRUCTURE OF LEFT Venipuncture / 08/11/2022 2:41 08/11 2:46 UPPER LIMB / Unknown PM KINESIOLOGY PROFESSOR PM KINESIOLOGY PROFESSOR Unknown Timothy Smith MD LAB - BLOOD ORDERABLES Performing Organization Address City/State/ZIP Code Phon e Number [facility] [place] [phone] Care Lab [address] Lab (1st floor, no room number) EKG 12-lead complete w/read - Clinics (performed today) (02/09/2022 12:49 PM CDT) Narrative This result has an attachment that is no t available. Timothy Smith MD ECG ORDERABLES documented in this encounter Visit Diagnoses Diagnosis Persistent atrial fibrillation (H) - Ria jing Atrial fibrillation Paroxysmal ventricular tachycardia Paroxysmal ventricular tachycardia documented in this encounter Care Teams Sizing Machine Tender Relationship Specialty Start Date End Date Graham Licona MD PCP - General Family Medicine 06/30/21 [facility] [address] [place] [address] Timothy Smith MD Assigned Heart and Vascular 07/23/20 [address] Provider [place] [id number] documented as of this encounter
--- OUTSIDE RECORDS SUMMARY | 2022-08-22 06:52 | XMS_ITS | Encounter Summary ---
:1940 Author Organization [place] Address [address] [facility] [place] [address] Care Team Providers Name Role Phone Timothy Smith MD Unavailable Graham Licona MD Primary Care Provider Reason for Visit Reason Onset Date Comments Implantable Devices 08/24/2021 Encounter Details Date Type Department Care Team Description 08/24/2021 Telephone [facility] Sandrine Whitman Implantable Devices [facility] [address] [place] [address] [address] [place] [address] Social History Tobacco Use Types Packs/Day Years Used Date Smoking Tobacco: Never Smokeless Tobacco: Never Alcohol Use Standard Drinks/Week Comments No 0 (1 standard drink = 0.6 oz pure alcoho l) Sex Assigned at Date Recorded Not on file COVID-19 Exposure Response Date Recorded In the last month, have you been in contact with No / Unsure 08/24/2021 10:48 AM TRANSCRIBING OPERATORS SUPERVISOR someone who was confirmed or suspected to [...] bleed (dark tarry stools). Patient voiced understanding. SCRIBING OPERATORS SUPERVISOR Telephone Encounter - Aliza Whitman - 08/24/2021 [...] ?? Will route message to Dr Smith. SCRIBING OPERATORS SUPERVISOR documented in this encounter Plan of Treatment Upcoming Encounters Date Type Specialty Care Team Description 08/31/2022 Appointment Respiratory Therapy Timothy Smith MD [address] [place] [phone] (Wo rk) 09/28/2022 Lab Lab 09/28/2022 Office Visit Cardiology Timothy Smith MD [address] [place] [address] Trudi Grayson APRN PRODUCT SAFETY TECHNICAL ASSISTANT [address] [place] [address] 11/16/2022 Ancillary Procedure Cardiology Timothy Smith MD [address] [place] [address] (Wo rk) documented as of this encounter Visit Diagnoses Diagnosis Persistent atrial fibrillation (H) - Ria jing Atrial fibrillation documented in this encounter Care Teams Back Hoe Operator Relationship Specialty Start Date End Date Graham Licona MD PCP - General Family Medicine 06/30/21 [facility] [address] [place] [address] Timothy Smith MD Assigned Heart and Vascular 07/23/20 [address] Provider [place] [id number] documented as of this encounter
--- OUTSIDE RECORDS SUMMARY | 2022-08-22 06:52 | XMS_ITS | Encounter Summary ---
:1940 Author Organization [place] Address [address] [place] [address] Care Team Providers Name Role Phone Timothy Smith MD Unavailable Graham Licona MD Primary Care Provider Reason for Visit CV Testing (Routine) - Pending Review Specialty Diagnoses / Procedures Referred By Contact Refer red To Contact Diagnoses Cardiac pacemaker in situ Steven Canchola Procedures Cardiac Device Check - Remote [address] [place] [address] [place] [address] Referral ID Status Reason Start Date Expiration Date Visits V isits Requested Authorized [id number] Pending 03/20/2022 03/20/2023 1 1 Review Encounter Details Date Type Department Care Team Description 03/20/2022 Ancillary [facility] Steven Canchola Card iac pacemaker Procedure [facility] MD Jose in situ Heart Care [address] [place] [address] [place] [address] [place] [phone] (Wo rk) [address] [phone] Social History Tobacco Use Types Packs/Day Years [...] [address] [place] [phone] (Wo rk) 09/28/2022 Lab Lab 09/28/2022 Office Visit Cardiology Timothy Smith MD [address] [place] [phone] Trudi Grayson, LABORER/KEY MAN ROASTER OPERATOR [address] [place] [address] 11/16/2022 Ancillary Procedure Cardiology Timothy Smith MD [address] [place] [phone] (Wo rk) documented as of this encounter [...] Range Method Time At Signature Date Time [id number] [employer] Interrogation Session Implantable [place] [employer] Pulse Generator Can Piler Implantable D432 RESONATE EL [employer] Pulse Generator ICD Model Implantable [id number] [employer] Pulse Generator Serial Number Type Remote [employer] Interrogation Session Clinic Name [facility] [employer] Implantable Defibrillator [employer] Pulse Generator Type Implantable [id number] [employer] Pulse Generator Implant Date Implantable Lead [place] [employer] Can Piler Implantable Lead [address] [place] [employer] Model 4-Site S Implantable Lead [id number] [employer] Serial Number Implantable Lead [id number] [employer] Implant Date Implantable Lead Bipolar Lead [...] Capacitor Charge Reformation [employer] Type Capacitor Last [id number] [employer] Charge Date Time Capacitor Charge 8.8 s [employer] Time Capacitor Charge Shock [employer] Type Capacitor Last [id number] [employer] Charge Date Time Capacitor Charge 6.8 s [employer] Time Capacitor Charge 41 J [employer] Energy Brandon Statistic [id number] [employer] Date Time Start Brandon Statistic [id number] [employer] Date Time End Brandon Statistic 3 % [employer] RV Percent Paced Therapy 6 [employer] Statistic Recent Shocks Delivered Therapy 0 [employer] Statistic Recent Shocks Aborted Therapy 26 [employer] Statistic Recent ATP Delivered Therapy [id number] [employer] Statistic Recent Date Time Start Therapy [id number] [employer] Statistic Recent Date Time End Therapy 6 [employer] Statistic Total Shocks Delivered Therapy 0 [employer] Statistic Total Shocks Aborted Therapy 34 [employer] Statistic Total ATP Delivered Therapy [id number] [employer] Statistic Total Date Time End Episode [...] VT-1 [employer] Statistic Vendor Type Category Episode [id number] [employer] Statistic Recent Date Time Start Episode [id number] [employer] Statistic Recent Date Time End Episode [id number] [employer] Statistic Recent Date Time Start Episode [employer] Statistic Recent Date Time End Episode [employer] Statistic Recent Date Time Start Episode [employer] Statistic Recent Date Time End Episode [id number] [employer] Statistic Recent Date Time Start Episode [employer] Statistic Recent Date Time End Episode [id number] [employer] Statistic Recent Date Time Start Episode [employer] Statistic Recent Date Time End Episode APM-133 [employer] Identifier Episode Type Periodic EGM [employer] Category Episode Date [employer] Time Episode RVAT-[id number] [employer] Identifier Episode Type Other [employer] Category Episode Date [employer] Time Anatomical Region Laterality Modality Other Specimen (Source) Anatomical Collection Method Collection Time Re ceived Time Location / / Volume Laterality 03/19/2022 1:07 AM CDT Narrative 03/26/2022 9:18 AM CDT [place] [employer] Resonate(S) ICD Remote Device Check ?? PAPER MAKING MACHINE OPERATOR: 3 % ?? Mode: VVIR 50-130 ?? [...] into 4s. per 's note from Dav rosales, pt is to be on 12.5mg. Unable to talk with that physician or his nurse . pt is currently taking 25mg of Toprolol XL. ??per Dr. Tomlin's note fro [facility]: CHANGE how you take these medicines Instructions metoprolol succinate 25 mg Sustained-Rel ease tablet For diagnoses: Typical atrial flutter (H C) What changed: medication strength how much to take Commonly known as: TOPROL XL Take 0.5 Tablets (12.5 mg) by mouth once daily. routed note to Dr. Smith as pt is wrong do se of med and unable to reach ordering provider at [facility]. SH/RN I have reviewed and interpreted the agustín ce interrogation, settings, programming and nurse's summary. The dev ice is functioning within normal device parameters. I agree with the curr ent findings, assessment and plan. Steven Canchola MD [facility] [employer] documented in this encounter Visit Diagnoses Diagnosis Cardiac pacemaker in situ documented in this encounter Care Teams Candy Depositing Machine Operator Relationship Specialty Start Date End Date Graham Licona MD PCP - General Family Medicine 06/30/21 [facility] [address] [place] [address] Timothy Smith MD Assigned Heart and Vascular 07/23/[address] Provider [place] [address] documented as of this encounter
--- OUTSIDE RECORDS SUMMARY | 2022-08-22 06:52 | XMS_ITS | Encounter Summary ---
:1940 Author Organization [place] Address [address] [facility] [place] [address] Care Team Providers Name Role Phone Timothy Smtih MD Unavailable Graham Licona MD Primary Care Provider Encounter Details Date Type Department Care Team Description 02/10/2022 Orders [facility] Timothy Smith MD Paroxysmal ventricular [facility] [place] [address] tachycardia (H) [address] (Primary Dx) [facility] [address] [place] [address] [place] [phone] Social History Tobacco Use Types Packs/Day Years [...] Respiratory Therapy Timothy Smith MD [address] [place] [address] (Wo rk) 09/28/2022 Lab Lab 09/28/2022 Office Visit Cardiology Timothy Smith MD [address] [place] [phone] Trudi Grayson APRN INDUCTION COORDINATION POWER ENGINEER [address] [place] [id number] 11/16/2022 Ancillary Procedure Cardiology Timothy Smith MD [address] [place] [phone] (Wo rk) Scheduled Orders Name Type Priority Associated Diagnoses Order S chedule General PFT Lab (Please PFT Routine Paroxysmal ventri cular Expected: 08/13/2022 always keep checked) tachycardia (H) ([place] roximate), Expires: 2022 Pulmonary Function Test PFT Routine Paroxysmal ventri cular Expected: 08/03/2022 tachycardia (H) (Approximate ), Expires: 2022 documented as of this encounter Visit Diagnoses Diagnosis Paroxysmal ventricular tachycardia - Ria jing documented in this encounter Care Teams Hospital Education Coordinator Relationship Specialty Start Date End Date Graham Licona MD PCP - General Family Medicine 06/30/21 [facility] [address] [place] [address] Timothy Smith MD Assigned Heart and Vascular 07/23/20 [address] Provider [place] [phone] documented as of this encounter
--- OUTSIDE RECORDS SUMMARY | 2022-08-22 06:52 | XMS_ITS | Encounter Summary ---
:1940 Author Organization [place] Address [address] [facility] [place] [address] Care Team Providers Name Role Phone Timothy Smith MD Unavailable Graham Licona MD Primary Care Provider Encounter Details Date Type Department Care Team Description 03/06/2022 [facility] Keyshawn Myers RN [facility] Heart [address] [place] [address] Social History Tobacco Use Types [...] [address] [place] [address] (Wo rk) 09/28/2022 Lab Lab 09/28/2022 Office Visit Cardiology Timothy Smith MD [address] [place] [phone] Trudi Grayson APRN PARACHUTE HARNESS RIGGER [address] [place] [address] [phone] 11/16/2022 Ancillary Procedure Cardiology Timothy Smith MD [address] [place] [phone] (Wo rk) documented as of this encounter Visit Diagnoses Not on filedocumented in this encounter Care Teams J2Ee Programmer Relationship Specialty Start Date End Date Graham Licona MD PCP - General Family Medicine 06/30/21 [facility] [address] [place] [address] Timothy Smith MD Assigned Heart and Vascular 07/23/20 [address] Provider [place] [phone] documented as of this encounter
--- OUTSIDE RECORDS SUMMARY | 2022-08-22 06:52 | XMS_ITS | Encounter Summary ---
:1940 Author Organization [place] Address [address] [facility] [place] [address] Care Team Providers Name Role Phone Timothy Smith MD Unavailable Graham Licona MD Primary Care Provider Reason for Visit Reason Onset Date Comments Implantable Devices 09/12/2021 [facility] alert Encounter Details Date Type Department Care Team Description 09/12/2021 Telephone [facility] Sintia Muhammad, Impl antable Devices [facility] RN (HeartLog ic alert) Heart Care [address] [place] [address] [place] [phone] Social History Tobacco Use Types Packs/Day Years Used Date Smoking Tobacco: Never Smokeless Tobacco: Never Alcohol Use Standard Drinks/Week Comments No 0 (1 standard drink = 0.6 oz pure alcoho l) Sex Assigned at Date Recorded Not on file COVID-19 Exposure Response Date Recorded In the last month, have you been in contact with No / Unsure 08/24/2021 10:48 AM SCOOPING MACHINE TENDER someone who was confirmed or suspected to [...] to monitor at this time. SIENNA Hatch PING MACHINE TENDER Telephone Encounter - Sintia Muhammad RN - [...] seeing his primary care provider, than Dr. Simth would recommend he follow-up with our CORE clinic, or heart failure clinic. Also congratulated patient on improvement in symptoms and recommended he continue to monitor his sodium intake and symptoms. Patient verbalized understanding and appreciation for call. SIENNA Hatch PING MACHINE TENDER Telephone Encounter - Timothy Smith MD - 09/13/2021 4:28 PM CST I am not able to manage heart failure with frequent visit. This patient has severe renal insufficiency. The first step may be with his PMD for evaluation and diuretic titration. If that does not work, then CORE clinic is recommended. PING MACHINE TENDER Telephone Encounter - Sintia Muhammad RN - 09/12/2021 12:01 PM CST Images from the original note were not included. [place] ICD remote alert received for [facility] at [...] after shehas reviewed the information. SIENNA Hatch PING MACHINE TENDER documented in this encounter Plan of Treatment Upcoming Encounters Date Type Specialty Care Team Description 08/31/2022 Appointment Respiratory Therapy Timothy Smith MD [address] [place] [phone] (Wo wade) 09/28/2022 Lab Lab 09/28/2022 Office Visit Cardiology Timothy Smith MD [address] [place] [phone] Trudi Grayson APRN CENTRAL SERVICES TECH [address] [address] 11/16/2022 Ancillary Procedure Cardiology Timothy Smith MD [address] [place] [phone] (Wo rk) documented as of this encounter Visit Diagnoses Not on filedocumented in this encounter Care Teams Licensed Physical Therapist Relationship Specialty Start Date End Date Graham Licona MD PCP - General Family Medicine 06/30/21 [facility] [address] [place] [address] Timothy Smith MD Assigned Heart and Vascular 07/23/20 [address] Provider [place] [address] documented as of this encounter
--- OUTSIDE RECORDS SUMMARY | 2022-08-22 06:52 | XMS_ITS | Encounter Summary ---
:1940 Author Organization [place] Address [address] [facility] [place] [address] Care Team Providers Name Role Phone Timothy Smith MD Unavailable Graham Licona MD Primary Care Provider Reason for Visit Reason Onset Date Comments Implantable Devices 08/02/2021 Encounter Details Date Type Department Care Team Description 08/02/2021 Telephone [facility] Sandrine Whitman Implantable Devices [facility] Care [address] [place] [phone] Social History Tobacco Use Types Packs/Day [...] with any symptoms. Telephone Encounter - Timothy Smtih MD - 08/02/2021 10:50 AM CDT Thank [...] 08/01/2021 at 0923. EGM shows [place] lasting [id number] with V rates [id number]. ATPx7 was delivered with rhythm breaking after [...] MD [address] [place] [id number] (Wo rk) 09/28/2022 Lab Lab 09/28/2022 Office Visit Cardiology Timothy Smith MD [address] [place] [address] Trudi Grayson, FLACO POTTERY KILN BUILDER [address] [id number] 11/16/2022 Ancillary Procedure Cardiology Timothy Smith MD [address] [place] [id number] (Wo rk) documented as of this encounter Visit Diagnoses Not on filedocumented in this encounter Care Teams Scale Attendant Relationship Specialty Start Date End Date Graham Licona MD PCP - General Family Medicine 06/30/21 [facility] [address] [place] [address] Timothy Smith MD Assigned Heart and Vascular 07/23/20 [address] Provider [place] [id number] documented as of this encounter
--- OUTSIDE RECORDS SUMMARY | 2022-08-22 06:52 | XMS_ITS | Encounter Summary ---
:1940 Author Organization [place] Address [address] [facility] [place] [address] Care Team Providers Name Role Phone Timothy Smith MD Unavailable Graham Licona MD Primary Care Provider Reason for Visit CV Testing (Routine) - Closed Specialty Diagnoses / Procedures Referred By Contact Refer red To Contact Diagnoses Cardiac pacemaker in situ Chris De Leon MD Procedures Cardiac Device Check - Remote (Post implant follow up) [address] [place] [id number] Referral ID Status Reason Start Date Expiration Date Visits Requ ested Visits Authorized [id number] Closed 07/05/2021 07/05/2022 1 1 Encounter Details Date Type Department Care Team Description 11/23/2021 Ancillary Procedure [facility] Chris De Leon, Cardiac pacemaker in [facility] situ Heart Care [address] [facility] [address] [place] [address] [place] [phone] [phone] Social History Tobacco Use Types Packs/Day Years [...] [address] [place] [address] (Wo rk) 09/28/2022 Lab Lab 09/28/2022 Office Visit Cardiology Timothy Smith MD [address] [place] [phone] Trudi Grayson APRN AUDIO/VIDEO TECHNICIAN [address] [place] [address] 11/16/2022 Ancillary Procedure Cardiology Timothy Smith MD [address] [place] [phone] (Wo rk) documented as of this encounter Procedures Procedure Name Priority Date/Time Associated Comments Diagnosis INTERROGATION DEVICE Routine 11/24/2021 1:06 PM Cardiac pacema ker Results for this EVAL REMOTE ICD UP TO FARM OPERATIONS TECHNICAL DIRECTOR in situ proced ure are in 90 the results section. documented in this encounter Results INTERROGATION DEVICE EVAL REMOTE ICD UP TO 90 (11/24/2021 1:06 PM FARM OPERATIONS TECHNICAL DIRECTOR) Component Value Ref Test Analysis Performed Pathologis t Range Method Time At Signature Date Time [id number] [employer] Interrogation Session Implantable [place] [employer] Pulse Generator Plywood Layup Line Back Feeder Implantable D432 RESONATE EL [employer]TRONIC Pulse Generator ICD Model Implantable [id number] [employer] Pulse Generator Serial Number Type Remote [employer] Interrogation Session Clinic Name [facility] Implantable Defibrillator [employer]ONIC Pulse Generator Type Implantable [id number] [employer]IC Pulse Generator Implant Date Implantable Lead [place] [employer] Plywood Layup Line Back Feeder Implantable Lead 0[address] [place] [employer] Model 4-Site S Implantable Lead [id number] [employer]IC Serial Number Implantable Lead [id number] [employer]IC Implant Date Implantable Lead Bipolar Lead [...] Capacitor Charge Reformation [employer] Type Capacitor Last [id number] [employer]ONIC Charge Date Time Capacitor Charge 9.1 s [employer]ONIC Time Brandon Statistic [id number] [employer]ONIC Date Time Start Brandon Statistic [id number] [employer]TRONIC Date Time End Brandon Statistic 3 % MEDTRONIC RV Percent Paced Therapy 0 [employer]TRONIC Statistic Recent Shocks Delivered Therapy 0 MEDTRONIC Statistic Recent Shocks Aborted Therapy 0 [employer]TRONIC Statistic Recent ATP Delivered Therapy [id number] [employer]TRONIC Statistic Recent Date Time Start Therapy [id number] [employer]TRONIC Statistic Recent Date Time End Therapy 0 MEDTRONIC Statistic Total Shocks Delivered Therapy 0 [employer]TRONIC Statistic Total Shocks Aborted Therapy 8 [employer]TRONIC Statistic Total ATP Delivered Therapy 40181424284226 [employer]TRONIC Statistic Total Date Time End Episode [...] VT-1 MEDTRONIC Statistic Vendor Type Category Episode [id number] [employer]ONIC Statistic Recent Date Time Start Episode [id number] [employer]IC Statistic Recent Date Time End Episode [id number] [employer] Statistic Recent Date Time Start Episode [id number] [employer] Statistic Recent Date Time End Episode [id number] [employer] Statistic Recent Date Time Start Episode [...] / / Volume Laterality 11/23/2021 12:40 AM FARM OPERATIONS TECHNICAL DIRECTOR Narrative 12/04/2021 10:04 AM FARM OPERATIONS TECHNICAL DIRECTOR [place] [employer] Resonate (S) ICD Remote Device Check WAREHOUSE SHIPPING ASSOCIATE: 3 % ?? Mode: VVIR 50-130 ?? [...] situ documented in this encounter Care Teams Senior Professional Services Consultant Relationship Specialty Start Date End Date Graham Licona MD PCP - General Family Medicine 06/30/21 [facility] [address] [place] [address] Timothy Smith MD Assigned Heart and Vascular 07/23/20 [address] Provider [place] [address] documented as of this encounter
--- OUTSIDE RECORDS SUMMARY | 2022-08-22 06:52 | XMS_ITS | Encounter Summary ---
:1940 Author Organization [place] Address [address] [place] [address] Care Team Providers Name Role Phone Timothy Smith MD Unavailable Graham Licona MD Primary Care Provider Reason for Visit CV Testing (Routine) - Closed Specialty Diagnoses / Procedures Referred By Contact Refer red To Contact Diagnoses Cardiac pacemaker in situ Chris De Leon MD Procedures Cardiac Device Check - In Clinic (Post implant follow up) [address] [place] [address] Referral ID Status Reason Start Date Expiration Date Visits Requ ested Visits Authorized [id number] Closed 07/05/2021 07/05/2022 1 1 Encounter Details Date Type Department Care Team Description 07/14/2021 Ancillary Procedure [facility] Chris De Leon, Cardiac pacemaker in [facility] situ Heart Care [address] [facility] [address] [place] [address] [place] [address] [phone] Social History Tobacco Use Types Packs/Day Years [...] [address] [place] [address] (Wo rk) 09/28/2022 Lab Lab 09/28/2022 Office Visit Cardiology Timothy Smith MD [address] [place] [phone] Trudi Grayson APRN TOE STRIPPER [address] [place] 423[address] 11/16/2022 Ancillary Procedure Cardiology Timothy Smith MD [address] [place] [phone] (Wo rk) documented as of this encounter [...] Signature Date Time MEDTRONIC Interrogation Session Implantable [place] [employer] Pulse Generator Director Security Management Implantable D432 RESONATE EL [employer]TRONIC Pulse Generator ICD Model Implantable 100654 MEDTRONIC Pulse Generator Serial Number Type In Clinic [facility] Interrogation Session Clinic Name [facility] [employer] Implantable Defibrillator MEDTRONIC Pulse Generator Type Implantable [id number] MEDTRONIC Pulse Generator Implant Date Implantable Lead [place] [employer] Director Security Management Implantable Lead [address] [place] [employer]TRONIC Model 4-Site S Implantable Lead 306848 MEDTRONIC Serial Number Implantable Lead [id number] MEDTRONIC Implant Date Implantable Lead Bipolar Lead [...] 0 MEDTRONIC Statistic Total ATP Delivered Therapy [id number] MEDTRONIC Statistic Total Date Time End Therapy 0 MEDTRONIC Statistic Recent Shocks Delivered Therapy 0 MEDTRONIC Statistic Recent Shocks Aborted Therapy 0 [employer]TRONIC Statistic Recent ATP Delivered Therapy SunJul 04 [employer]IC Statistic Recent 11:45:37 CDT 2020 Date Time Start Therapy [id number] [employer]TRONIC Statistic Recent Date Time End Episode 61 [employer]TRONIC Statistic Total Count Episode VT MEDTRONIC Statistic Type Category Episode NSVT MEDTRONIC Statistic Vendor Type Category Episode 0 MEDTRONIC Statistic Total Count Episode VF MEDTRONIC Statistic Type Category Episode VF MEDTRONIC Statistic Vendor Type Category Episode 0 MEDTRONIC Statistic Total Count Episode [id number] MEDTRONIC Statistic Type Category Episode [id number] MEDTRONIC Statistic Total Date Time End Episode [id number] MEDTRONIC Statistic Total Date Time End Episode [id number] [employer]TRONIC Statistic Total Date Time End Episode [...] 11:45:37 CDT 2020 Date Time Start Episode [id number] [employer]IC Statistic Recent Date Time End Episode SunJul 04 [employer]TRONIC Statistic Recent 11:45:37 CDT 2020 Date Time Start Episode [id number] [employer]IC Statistic Recent Date Time End Episode SunJul 04 [employer]ONIC Statistic Recent 11:45:37 CDT 2020 Date Time Start Episode [id number] [employer]ONIC Statistic Recent Date Time End Anatomical Region Laterality Modality Other Specimen (Source) Anatomical Collection Method Collection Time Re ceived Time Location / / Volume Laterality 07/14/2021 11:37 AM CDT Narrative 07/18/2021 1:08 PM CDT [employer] ??7 Day Post Upgrade to ICD and PPM removal Device Check Patient seen in clinic for device evalua tion and iterative programming. DEPARTMENT OF MATHEMATICS CHAIR: 3 % ?? Mode: VVIR 50-130 ?? [...] situ documented in this encounter Care Teams Java Portal Developer Relationship Specialty Start Date End Date Graham Licona MD PCP - General Family Medicine 06/30/21 [facility] [address] [place] [address] Timothy Smith MD Assigned Heart and Vascular 07/23/20 [address] Provider [place] [address] documented as of this encounter
--- OUTSIDE RECORDS SUMMARY | 2022-08-22 06:52 | XMS_ITS | Encounter Summary ---
:1940 Author Organization [place] Address [address] [facility] [place] [address] Care Team Providers Name Role Phone Timothy Smith MD Unavailable Graham Licona MD Primary Care Provider Encounter Details Date Type Department Care Team Description 07/14/2021 Documentation Only [facility] Heart Thao Al[place], Clinic [place] RN [address] [facility] [address] [place] [phone] Social History Tobacco Use Types Packs/Day Years [...] [address] [place] [address] (Wo rk) 09/28/2022 Lab Lab 09/28/2022 Office Visit Cardiology Timothy Smith MD [address] [place] [address] Trudi Grayson APRN INTERPRETER DEAF [address] [address] 11/16/2022 Ancillary Procedure Cardiology Timothy Smith MD [address] [place] [address] (Wo rk) documented as of this encounter Visit Diagnoses Not on filedocumented in this encounter Care Teams Calender Roll Operator Relationship Specialty Start Date End Date Graham Licona MD PCP - General Family Medicine 06/30/21 [facility] [address] [place] [address] Timothy Smith MD Assigned Heart and Vascular 07/23/20 [address] Provider [place] [id number] documented as of this encounter
--- OUTSIDE RECORDS SUMMARY | 2022-08-22 06:52 | XMS_ITS | Encounter Summary ---
:1940 Author Organization [place] Address [address] [facility] [place] [address] Care Team Providers Name Role Phone Timothy Smith MD Unavailable Graham Licona MD Primary Care Provider Encounter Details Date Type Department Care Team Description 07/14/2021 Documentation Only [facility] Heart Trung, S ananda C, Clinic [place] SANTANA [address] [facility] [address] [facility] [address] [place] [address] [place] 831005 (Wo rk) Social History Tobacco Use Types [...] Appointment Respiratory Therapy Timothy Smith MD [address] [place] [phone] (Wo rk) 09/28/2022 Lab Lab 09/28/2022 Office Visit Cardiology Timothy Smith MD [address] [place] [phone] Trudi Grayson, FLACO LION TRAINER [address] [id number] 11/16/2022 Ancillary Procedure Cardiology Timothy Smith MD [address] [place] 479005 (Wo rk) documented as of this encounter Visit Diagnoses Not on filedocumented in this encounter Care Teams Cage Maker Relationship Specialty Start Date End Date Graham Licona MD PCP - General Family Medicine 06/30/21 [facility] [address] [place] [address] Timothy Smith MD Assigned Heart and Vascular 07/23/20 [address] Provider [place] [phone] documented as of this encounter
--- OUTSIDE RECORDS SUMMARY | 2022-08-22 06:52 | XMS_ITS | Encounter Summary ---
:1940 Author Organization [place] Address [address] [facility] [place] [address] Care Team Providers Name Role Phone Timothy mSith MD Unavailable Graham Licona MD Primary Care Provider Reason for Visit Reason Comments Heart Problem ICD shocks Encounter Details Date Type Department Care Team Description 01/27/2022 Documentation Only [facility] Catherine Aranda eart Problem (ICD Heart [facility] [place] Crenshaw LPN shocks) [address] [facility] [address] [place] [phone] Social History Tobacco Use Types Packs/Day [...] [facility] that [facility] was [...] Respiratory Therapy Timothy Smith MD [address] [place] [phone] (Wo rk) 09/28/2022 Lab Lab 09/28/2022 Office Visit Cardiology Timothy Smith MD [address] [place] [address] Trudi Grayson APRN BUTTON INSPECTOR [address] [address] 11/16/2022 Ancillary Procedure Cardiology Timothy Smith MD [address] [place] [address] (Wo rk) documented as of this encounter Visit Diagnoses Not on filedocumented in this encounter Care Teams Cigarette Maker Relationship Specialty Start Date End Date Graham Licona MD PCP - General Family Medicine 06/30/21 [facility] [address] [place] [address] Timothy Smith MD Assigned Heart and Vascular 07/23/20 [address] Provider [place] [id number] documented as of this encounter
--- OUTSIDE RECORDS SUMMARY | 2022-08-22 06:52 | XMS_ITS | Encounter Summary ---
:1940 Author Organization [place] Address [address] [place] [address] Care Team Providers Name Role Phone Timothy [...] Respiratory Therapy Timothy Smith MD [address] [place] [phone] (Wo rk) 09/28/2022 Lab Lab 09/28/2022 Office Visit Cardiology Timothy Smith MD [address] [place] [address] Trudi Grayson APRN MICA BUILDER [address] 0630[address] 11/16/2022 Ancillary Procedure Cardiology Timothy Smith MD [address] [place] [phone] (Wo rk) documented as of this encounter Visit Diagnoses Not on filedocumented in this encounter Care Teams Recreation Supervisor Relationship Specialty Start Date End Date Graham Licona MD PCP - General Family Medicine 06/30/21 [facility] [address] [place] [address] Timothy Smith MD Assigned Heart and Vascular 07/23/20 [address] Provider [place] [id number] documented as of this encounter
--- OUTSIDE RECORDS SUMMARY | 2022-08-22 06:52 | XMS_ITS | Encounter Summary ---
:1940 Author Organization [place] Address [address] [facility] [place] [address] Care Team Providers Name Role Phone Timothy Smith MD Unavailable Graham Licona MD Primary Care Provider Reason for Visit Reason Onset Date Comments Implantable Devices 07/25/2021 Alert for [place] requiri ng ATP Encounter Details Date Type Department Care Team Description 07/25/2021 Telephone [facility] Sintia Muhammad, Impl antable Devices [facility] RN (Alert fo r [place] requiring Heart Care ATP) [address] [place] [phone] Social History Tobacco Use Types Packs/Day [...] clinic phone number provided. Pt is on [employer] XL. Dr. Smith was previously notified for [...] Respiratory Therapy Timothy Smith MD [address] [place] [address] (Wo rk) 09/28/2022 Lab Lab 09/28/2022 Office Visit Cardiology Timothy Smith MD [address] [place] [phone] Trudi Grayson APRN CNP [address] [phone] 11/16/2022 Ancillary Procedure Cardiology Timothy Smith MD [address] [place] 335645 (Wo rk) documented as of this encounter Visit Diagnoses Not on filedocumented in this encounter Care Teams Alley Worker Relationship Specialty Start Date End Date Graham Licona MD PCP - General Family Medicine 06/30/21 [facility] [address] [place] [address] Timothy Smith MD Assigned Heart and Vascular 07/23/20 [address] Provider [place] [address] documented as of this encounter
--- OUTSIDE RECORDS SUMMARY | 2022-08-22 06:52 | XMS_ITS | Encounter Summary ---
:1940 Author Organization [place] Address [address] [facility] [place] [address] Care Team Providers Name Role Phone Timothy [...] with No / Unsure 08/24/2021 10:48 AM RAYON WINDER someone who was confirmed or suspected to have Coronavirus / COVID-19? documented as of this encounter Plan of Treatment Upcoming Encounters Date Type Specialty Care Team Description 08/31/2022 Appointment Respiratory Therapy Timothy Smith MD [address] [place] [phone] (Wo rk) 09/28/2022 Lab Lab 09/28/2022 Office Visit Cardiology Timothy Smith MD [address] [place] [address] Trudi Grayson APRN PAINTER ROUGH [address] [address] 11/16/2022 Ancillary Procedure Cardiology Timothy Smith MD [address] [place] 030445 (Wo rk) documented as of this encounter Visit Diagnoses Not on filedocumented in this encounter Care Teams Parimutuel Clerk Relationship Specialty Start Date End Date Graham Licona MD PCP - General Family Medicine 06/30/21 [facility] [address] [place] [address] Timothy Smith MD Assigned Heart and Vascular 07/23/20 [address] Provider [place] [phone] documented as of this encounter
--- OUTSIDE RECORDS SUMMARY | 2022-08-22 06:52 | XMS_ITS | Encounter Summary ---
:1940 Author Organization [place] Address [address] [place] [address] Care Team Providers Name Role Phone Timothy Smith MD Unavailable Graham Licona MD Primary Care Provider Reason for Visit Reason Onset Date Comments fax clearance 02/14/2022 Needs cardiac cleara nce for 02/21/22 surgery Encounter Details Date Type Department Care Team Description 02/14/2022 Telephone [facility] Heart Zarina Smith MD fax clearance (Needs Clinic [place] [address] cardiac clearance for [address] 02/21/22 surgery) [facility] [address] [place] [address] [place] [phone] Social History Tobacco Use Types Packs/Day Years [...] 02/14/2022 4:23 PM CDT Second request from [facility] for cardiac clearance letter requested to be faxed [phone]. Fax sent. JNelsonRN Telephone Encounter - Temitope Tamayo RN - 02/14/2022 2:14 PM CDT Faxed over to [facility] signed letter from Dr Smith that patient is cleared for hip surgery scheduled for 02/21. Signed letter sent to [facility] to scan. SIENNA Okeefe Telephone Encounter - Timothy Smith MD - 02/14/2022 1:13 PM CDT YES Telephone Encounter - Anel Corado - 02/14/2022 9:41 AM CDT [facility] Call Center Phone Message May a detailed message be left on voicemail: yes Reason for Call: Other: [place] calling in stating that pt is having hip surgery on 02/21/22 and they are needing a letter for cardiac clearance faxed over to them at [phone]. Action Taken: Message routed to: Other: ru cardio Travel Screening: Not Applicable documented in this encounter Plan of Treatment Upcoming Encounters Date Type Specialty Care Team Description 08/31/2022 Appointment Respiratory Therapy Timothy Smith MD [address] [place] [phone] (Wo rk) 09/28/2022 Lab Lab 09/28/2022 Office Visit Cardiology Timothy Smith MD [address] [place] [phone] Trudi Grayson APRN WATER RESOURCES PROJECT MANAGER [address] [place] [address] 11/16/2022 Ancillary Procedure Cardiology Timothy Smith MD [address] [place] [phone] (Wo rk) documented as of this encounter Visit Diagnoses Not on filedocumented in this encounter Care Teams Agriculture Laborer Relationship Specialty Start Date End Date Graham Licona MD PCP - General Family Medicine 06/30/21 [facility] [address] [place] [address] Timothy Smith MD Assigned Heart and Vascular 07/23/20 [address] Provider [place], [place] [phone] documented as of this encounter
--- OUTSIDE RECORDS SUMMARY | 2022-08-22 06:52 | XMS_ITS | Encounter Summary ---
:1940 Author Organization [place] Address [address] [facility] [place] [address] Care Team Providers Name Role Phone Timothy [...] contact Unable to assess 12/02/2021 12:08 PM HEAD GROWER with someone who was confirmed or suspected to have Coronavirus / COVID-19? documented as of this encounter Plan of Treatment Upcoming Encounters Date Type Specialty Care Team Description 08/31/2022 Appointment Respiratory Therapy Timothy Smith MD [address] [place] [phone] (Wo rk) 09/28/2022 Lab Lab 09/28/2022 Office Visit Cardiology Timothy Smith MD [address] [place] [phone] Trudi Grayson APRN SPRING ASSEMBLER SUPERVISOR [address] [phone] 11/16/2022 Ancillary Procedure Cardiology Timothy Smith MD [address] [place] [phone] (Wo rk) documented as of this encounter Visit Diagnoses Not on filedocumented in this encounter Care Teams Lodging Facilities Manager Relationship Specialty Start Date End Date Graham Licona MD PCP - General Family Medicine 06/30/21 [facility] [address] [place] [address] Timothy Smith MD Assigned Heart and Vascular 07/23/20 [address] Provider [place] [phone] documented as of this encounter
--- OUTSIDE RECORDS SUMMARY | 2022-08-22 06:52 | XMS_ITS | Encounter Summary ---
:1940 Author Organization [place] Address [address] [facility] [facility] [place] [address] Care Team Providers Name Role Phone Timothy Smith MD Unavailable Graham Licona MD Primary Care Provider Reason for Visit Auth/Cert Specialty Diagnoses / Procedures Referred By Contact Refer red To Contact Med Surg Diagnoses Sustained VT (ventricular tachycardia) Cardiac pacemaker in situ [place] Care Suites Procedures HC ICD IMPLANT, SINGLE / DUAL W LEAD INSERTION/REPOSITIONING Implantable Cardioverter-Defibrillator (ICD) [address] [phone] Phone: Referral ID Status Reason Start Date Expiration Date Visits Requ ested Visits Authorized [id number] 1 1 Encounter Details Date Type Department Care Team Description 07/04/2021 Surgery [facility] Kaur De Leon MD [facility] [address] Card ioverter-Defibrillat Heart Care [address] or (ICD) [address] [address] [place] [address] [phone] Surgery Details Date/Time Status Location OR Service Patient Class Case Case Trauma Class Type Case? 07/04/21 2:00 Posted HEART Cath Cardiology Outpatient PM CARDIAC Lab 4 FERTILIZER SUPERVISOR Panel 1 Procedure [facility] Op Region [...] If you need to change it, use [id number] gauze and a large clear bandage. ??? [...] 10 minutes. ??? Once bleeding stops, call [facility] Heart Clinic as soon as [...] ??? Follow up with Device Clinic at [facility] Heart Clinic of patient preference [...] Device Safety: ??? Please refer to device etcher electrolytic???s booklet for further information. [facility] [place]: [phone] [facility] (7 days a week) documented in [...] artery disease minutes as needed involving [place] coronary for chest pain artery of [place] heart without angina pectoris omeprazole (PRILOSEC) 20 Take 20 mg by mouth [address] capsule daily tamsulosin (FLOMAX) 0.4 Take 0.4 mg by 0 MG capsule mouth every evening furosemide (LASIX) 40 MG Take 40 mg by mouth 0 08/16/2022 tablet daily documented as of this encounter Progress Notes [...] Accompanied by: - Prachi Name/phone of DC professional driver: ... [phone] Medications held: off blood thinners (Eliquis) for [...] Report given to Trudi Rhoades RN. Anila Bright RN - 07/04/2021 12:31 PM CDT PATIENT/VISITOR [...] the visitor has positive symptoms, notify supervisor game farm/manger Per policy, the visitor will need to leave the facility documented in this encounter Plan of Treatment Upcoming Encounters Date Type Specialty Care Team Description 08/31/2022 Appointment Respiratory Therapy Timothy Smith MD [address] [place] [address] (Wo rk) 09/28/2022 Lab Lab 09/28/2022 Office Visit Cardiology Timothy Smith MD [address] [place] [address] Trudi Grayson, FLACO MASTER WELDER [address] [place] [address] 11/16/2022 Ancillary Procedure Cardiology Timothy Smith MD [address] [place] [address] (Wo rk) documented as of this encounter [...] The pacemaker leads were removed the pac LivingWell Healthker generator and were capped. A pocket was [...] Action ICD RESONATE EL VR DF4 - [id number] ICD ICD RESONATE EL VR DF4 [id number] [employer] [id number] ??1 Implante d LEAD ??RELIANCE ENDOTAK DF4 AF 59 CM 027 2 - [id number] Leads LEAD ??RELIANCE ENDOTAK DF4 AF 59 CM 0272 [id number] [employer] [place] [id number] ??1 Implanted STIMULATION THRESHOLDS: RV - ??Sense:8.4 [...] CBC with platelets (07/04/2021 12:48 PM CDT) [facility] Method Time Signature WBC Count 6.9 4.0 [...] City/State/ZIP Code Phon e Number LABORATORY [place] [address] [facility] [address] 1st floor, Room 20B (ABNORMAL) Basic metabolic [...] LAB - BLOOD ORDERABLES Performing Organization Address City/[facility]/ZIP [facility] [place] [address] [phone] Care Lab [address] [place] 1st floor, Room 20B EKG 12-lead, tracing only (07/04/2021 12:15 PM CDT) Component Value Ref Range Test Analysis Performed Pathologis t Method Time At Signature Systolic Blood mmHg RADIOLOGY Pressure RESULTS Diastolic Blood mmHg RADIOLOGY Pressure RESULTS Ventricular Rate 96 BPM RADIOLOGY RESULTS Atrial Rate 94 BPM RADIOLOGY RESULTS NC Interval ms RADIOLOGY RESULTS QRS Duration 140 ms RADIOLOGY RESULTS QT 418 ms RADIOLOGY RESULTS QTc 528 ms RADIOLOGY RESULTS P [place] degrees RADIOLOGY RESULTS R AXIS -79 degrees RADIOLOGY RESULTS T [place] 3 degrees RADIOLOGY RESULTS Interpretation Atrial fibrillation with premature ventricular beats RADIOLOGY ECG Left axis deviation RESULTS Right bundle branch block Inferior infarct , age undetermined Abnormal ECG When compared with ECG of 31-MAY-2018 13:40, Atrial fibrillation has replaced Sinus rhythm Confirmed by MD SAUNDRA, KAUR (1984), videotape editor TIMA CORONEL ([id number]) on 07/05/2021 6:24:46 PM Specimen Anatomical Collection [...] Heriberto Gaston RN) Routine, 3 g, Intravenous, PRE-OP/PRE-NC OCEDURE, Starting on Sun07/04/21 at 1200, For [...] Gaston RN)1358 (Given - Provider: Heriberto Gaston, SIENNA)1423 (Given - Provider: Heriberto Gaston, SIENNA) ONCE PRN, Administer over 3-5 Minutes, S tarting on Sun07/04/21 at 1350, Cardiac Intra-procedure lidocaine 1 % (CANCELED) 1401 (G iven - Provider: Heriberto Gaston, SIENNA) ONCE PRN, Starting on Sun07/04/21 at 1401, [...] grams documented in this encounter Care Teams Autocad Technician Relationship Specialty Start Date End Date Graham Licona MD PCP - General Family Medicine 06/30/21 [facility] [address] [place] [address] Timothy Smith MD Assigned Heart and Vascular 07/23/20 [address] Provider [place] [address] documented as of this encounter
--- OUTSIDE RECORDS SUMMARY | 2022-08-22 06:52 | XMS_ITS | Encounter Summary ---
:1940 Author Organization [place] Address [address] [facility] [facility] [place] [address] Care Team Providers Name Role Phone Timothy Smith MD Unavailable Graham Licona MD Primary Care Provider Encounter Details Date Type Department Care Team Description [facility] Heart [address] [place] [address] Social History Tobacco Use Types [...] at 12:02 and 12:04. EGM shows VT [id number] and 1m9s with V-rates in the 200-210s. [...] [address] [place] [id number] (Wo rk) 09/28/2022 Lab Lab 09/28/2022 Office Visit Cardiology Timothy Smith MD [address] [place] [address] Trudi Grayson APRN HELPER SHEAR OPERATOR [address] [address] 11/16/2022 Ancillary Procedure Cardiology Timothy Smith MD [address] [place] [address] (Wo rk) documented as of this encounter Visit Diagnoses Not on filedocumented in this encounter Care Teams Family Physician Relationship Specialty Start Date End Date Graham Licona MD PCP - General Family Medicine 06/30/21 [facility] [address] [place] [address] Timothy Smith MD Assigned Heart and Vascular 07/23/20 [address] Provider [place] [id number] documented as of this encounter
--- OUTSIDE RECORDS SUMMARY | 2022-08-22 06:52 | XMS_ITS | Encounter Summary ---
:1940 Author Organization [place] Address [address] [facility] [place] [address] Care Team Providers Name Role Phone Timothy Smith MD Unavailable Graham Licona MD Primary Care Provider Encounter Details Date Type Department Care Team Description 07/05/2021 [facility] Chris De Leon MD Cardiac pacemaker in [facility] [place] [address] situ (Primary Dx) [address] [facility] [address] [place] [address] [place] [phone] Social History Tobacco Use Types Packs/Day Years [...] Respiratory Therapy Timothy Smith MD [address] [place] [phone] (Wo rk) 09/28/2022 Lab Lab 09/28/2022 Office Visit Cardiology Timothy Smith MD [address] [place] [phone] Trudi Grayson APRN CONCRETE BUILDINGS ASSEMBLER [address] [place] [id number] 11/16/2022 Ancillary Procedure Cardiology Timothy Smith MD [address] [place] [phone] (Wo rk) documented as of this encounter Visit Diagnoses Diagnosis Cardiac pacemaker in situ - Primary documented in this encounter Care Teams Executive Receptionist Relationship Specialty Start Date End Date Graham Licona MD PCP - General Family Medicine 06/30/21 [facility] [address] [place] [address] Timothy Smith MD Assigned Heart and Vascular 07/23/20 [address] Provider [place] [id number] documented as of this encounter
--- OUTSIDE RECORDS SUMMARY | 2022-08-22 06:52 | XMS_ITS | Encounter Summary ---
:1940 Author Organization [place] Address [address] [facility] [facility] [place] [address] Care Team Providers Name Role Phone Timothy Smith MD Unavailable Graham Licona MD Primary Care Provider Encounter Details Date Type Department Care Team Description 01/30/2022 [facility] Sandrine Whitman bryn [facility] Heart Care [address] [facility] [address] [place] [address] Social History Tobacco Use Types [...] were not included. Alert received from patients [employer] single chamber ICD for ATP therapy [...] V rates of 180-190bpm. Patient presented to [facility] on 01/27/22 after receiving shocks from ICD.Patient [...] [address] [place] [address] (Wo rk) 09/28/2022 Lab Lab 09/28/2022 Office Visit Cardiology Timothy Smith MD [address] [place] [address] Trudi Grayson APRN CNP [address] [address] 11/16/2022 Ancillary Procedure Cardiology Timothy Smith MD [address] [place] [address] (Wo rk) documented as of this encounter Visit Diagnoses Diagnosis Sustained VT (ventricular tachycardia) - Primary Paroxysmal ventricular tachycardia documented in this encounter Care Teams Wort Extractor Relationship Specialty Start Date End Date Graham Licona MD PCP - General Family Medicine 06/30/21 [facility] [address] [place] [address] Timothy Smith MD Assigned Heart and Vascular 07/23/20 [address] Provider [place] [address] documented as of this encounter
--- OUTSIDE RECORDS SUMMARY | 2022-08-22 06:52 | XMS_ITS | Encounter Summary ---
:1940 Author Organization [place] Address [address] [facility] [place] [address] Care Team Providers Name Role Phone Timothy [...] Respiratory Therapy Timothy Smith MD [address] [place] [phone] (Wo rk) 09/28/2022 Lab Lab 09/28/2022 Office Visit Cardiology Timothy Smith MD [address] [place] [phone] Trudi Grayson APRN MANAGER OF BUSINESS [address] 578[address] 11/16/2022 Ancillary Procedure Cardiology Timothy Smith MD [address] [place] [phone] (Wo rk) documented as of this encounter Visit Diagnoses Not on filedocumented in this encounter Care Teams Coding Support Specialist Relationship Specialty Start Date End Date Graham Licona MD PCP - General Family Medicine 06/30/21 [facility] [address] [place] [address] Timothy Smith MD Assigned Heart and Vascular 07/23/20 [address] Provider [place] [phone] documented as of this encounter
--- OUTSIDE RECORDS SUMMARY | 2022-08-22 06:52 | XMS_ITS | Encounter Summary ---
:1940 Author Organization [place] Address [address] [facility] [facility] [place] [address] Care Team Providers Name Role Phone Timothy Smith MD Unavailable Graham Licona MD Primary Care Provider Encounter Details Date Type Department Care Team Description 07/05/2021 Telephone [facility] Keyshawn Myers RN [facility] Heart [address] [place] [address] Social History Tobacco Use Types [...] device check scheduled: 07/14/21 at 11:00am in [place]. Pt states understanding of all instructions. documented in this encounter Plan of Treatment Upcoming Encounters Date Type Specialty Care Team Description 08/31/2022 Appointment Respiratory Therapy Timothy Smith MD [address] [place] [address] (Wo rk) 09/28/2022 Lab Lab 09/28/2022 Office Visit Cardiology Timothy Smith MD [address] [place] [phone] Trudi Grayson APRN TREE SCOUT [address] [phone] 11/16/2022 Ancillary Procedure Cardiology Timothy Smith MD [address] [place] [phone] (Wo rk) documented as of this encounter Visit Diagnoses Not on filedocumented in this encounter Care Teams Parts Clerk Relationship Specialty Start Date End Date Graham Licona MD PCP - General Family Medicine 06/30/21 [facility] [address] [place] [address] Timothy Smith MD Assigned Heart and Vascular 07/23/20 [address] Provider [place] [phone] documented as of this encounter
--- OUTSIDE RECORDS SUMMARY | 2022-08-22 06:52 | XMS_ITS | Encounter Summary ---
:1940 Author Organization [place] Address [address] [facility] [place] [address] Care Team Providers Name Role Phone Timothy Smith MD Unavailable Graham Licona MD Primary Care Provider Encounter Details Date Type Department Care Team Description 12/09/2021 [facility] Keyshawn Myers RN [facility] Heart [address] [place] [address] Social History Tobacco Use Types Packs/Day Years Used Date Smoking Tobacco: Never Smokeless Tobacco: Never Alcohol Use Standard Drinks/Week Comments No 0 (1 standard drink = 0.6 oz pure alcoho l) Sex Assigned at Date Recorded Not on file COVID-19 Exposure Response Date Recorded In the last month, have you been in contact Unable to assess 12/02/2021 12:08 PM INTERNAL AUDIT DIRECTOR with someone who was confirmed or suspected [...] diuretic dosage. Janny appreciative for the information. RNAL AUDIT DIRECTOR Telephone Encounter - Kitty Myers, RN - [...] Patient states understanding and agreement with plan. RNAL AUDIT DIRECTOR documented in this encounter Plan of Treatment Upcoming Encounters Date Type Specialty Care Team Description 08/31/2022 Appointment Respiratory Therapy Timothy Smith MD [address] [place] [address] (Wo rk) 09/28/2022 Lab Lab 09/28/2022 Office Visit Cardiology Timothy Smith MD [address] [place] [address] Trudi Grayson APRN INORGANIC CHEMISTRY TEACHER [address] [address] 11/16/2022 Ancillary Procedure Cardiology Timothy Smith MD [address] [place] [address] (Wo rk) documented as of this encounter Visit Diagnoses Not on filedocumented in this encounter Care Teams Stick Roller Relationship Specialty Start Date End Date Graham Licona MD PCP - General Family Medicine 06/30/21 [facility] [address] [place] [address] Timothy Smith MD Assigned Heart and Vascular 07/23/20 [address] Provider [place] [phone] documented as of this encounter
--- OUTSIDE RECORDS SUMMARY | 2022-08-22 06:53 | XMS_ITS | Encounter Summary ---
:1940 Author Organization [place] Address [address] [facility] [place] [address] Care Team Providers Name Role Phone Slava Hernandez PA-C Primary Care Provider Timothy Smith MD Unavailable Reason for Visit Reason Comments Atrial Fib ekg done (Routine) - Closed Specialty Diagnoses / Procedures Referred By Contact Refer red To Contact Diagnoses Sustained VT (ventricular tachycardia) Timothy Smith MD [address] [place] [address] Referral ID Status Reason Start Date Expiration Date Visits Requ ested Visits Authorized [id number] Closed 03/23/2021 03/23/2022 1 1 Encounter Details Date Type Department Care Team Description 04/26/2021 Office Visit [facility] Timothy Smith MD Persistent atrial fibrillation (H) (Prim arnie Dx); [facility] [place] [address] Sustained VT (ventricular ta chycardia) (H); [address] [facility] [address] Morbid obesity (H) [facility] [address] [place] [address] [place] [phone] Social History Tobacco Use Types Packs/Day Years [...] Timothy Smith MD cc: Slava Hernandez PA-C [facility] [id number] [place] [address] Timothy Smith MD MT: francesca Name: RADHA VILLA MRN: [id number] Account: [id number] : 1940 Service Date: 04/26/2021 Document: [id number] Timothy Smith MD - 04/26/2021 12:45 PM [...] Other Topics Concern ??? Parent/sibling w/ CABG, VT or angioplasty before 65F 55M? No ??? [...] Gatherings with Friends and Family: ??? Attends Mandaen Services: ??? Active Member of Clubs or [...] [address] [place] [address] documented in this encounter Plan of Treatment Upcoming Encounters Date Type Specialty Care Team Description 08/31/2022 Appointment Respiratory Therapy Timothy Smith MD [address] [place] [address] (Wo rk) 09/28/2022 Lab Lab 09/28/2022 Office Visit Cardiology Timothy Smith MD [address] [place] [address] Trudi Grayson APRN IT PROGRAMMER ANALYST [address] [place] [address] 11/16/2022 Ancillary Procedure Cardiology Timothy Smith MD [address] [place] [address] (Wo rk) documented as of this encounter [...] obesity documented in this encounter Care Teams Pan Shover Relationship Specialty Start Date End Date Slava Hernandez, PCP - General Physician It Program Manager 07/02/1806/02 PA-C [facility] [address] [place] [address] Timothy Smith MD Assigned Heart and 07/23/20 [address] Vascular Provider [address] [place] [phone] documented as of this encounter
--- OUTSIDE RECORDS SUMMARY | 2022-08-22 06:53 | XMS_ITS | Encounter Summary ---
:1940 Author Organization [place] Address [address] [place] [address] Care Team Providers Name Role Phone Timothy Smith MD Unavailable Graham Licona MD Primary Care Provider Reason for Visit Auth/Cert Specialty Diagnoses / Procedures Referred By Contact Refer red To Contact Med Surg Diagnoses Sustained VT (ventricular tachycardia) Cardiac pacemaker in situ [place] Care Suites Procedures HC ICD IMPLANT, SINGLE / DUAL W LEAD INSERTION/REPOSITIONING Implantable Cardioverter-Defibrillator (ICD) [address] [phone] Phone: Referral ID Status Reason Start Date Expiration Date Visits Requ ested Visits Authorized [id number] 1 1 Encounter Details Date Type Department Care Team Description 07/04/2021 Hospital Encounter [facility] Timothy Smith MD [address] [place] [address] Sustained VT (ventricular tachycardia) ( H); [facility] Kaur De Leon MD [address] [place] [address] Cardiac [...] If you need to change it, use [id number]-[id number] gauze and a large clear bandage. ??? [...] says you have a defibrillator (ICD). [email or web address]. ??? Always tell doctors, dentists and other [...] Device Safety: ??? Please refer to device rocket motor tester???s booklet for further information. [facility] [place]: [phone] [facility] (7 days a week) documented in [...] Coronary artery disease minutes as needed involving [place] coronary for chest pain artery of [place] heart without angina pectoris omeprazole (PRILOSEC) 20 [...] Accompanied by: - Prachi Name/phone of DC taxi cab driver: ... [phone] Medications held: off blood thinners (Eliquis) for [...] If the visitor has positive symptoms, notify pulp mill supervisor/manger Per policy, the visitor will need to leave the facility documented in this encounter Plan of Treatment Upcoming Encounters Date Type Specialty Care Team Description 08/31/2022 Appointment Respiratory Therapy Timothy Smith MD [address] [place] [address] (Wo rk) 09/28/2022 Lab Lab 09/28/2022 Office Visit Cardiology Timothy Smith MD [address] [place] [address] Trudi Grayson APRN STEEL POST INSTALLER [address] [place] [phone] 11/16/2022 Ancillary Procedure Cardiology Timothy Smith MD [address] [place] [address] (Wo rk) documented as of this encounter [...] appears congested. IMPRESSION: No acute disease. VALERIANO FIZTGERALD MD SYSTEM ID: [id number] Kaur Hinds MD [...] The pacemaker leads were removed the pac tibditker generator and were capped. A pocket was [...] Action ICD RESONATE EL VR DF4 - [id number] ICD ICD RESONATE EL VR DF4 476174 [place] [employer] [id number] ??1 Implante d LEAD ??RELIANCE ENDOTAK DF4 AF 59 CM 027 2 - [id number] Leads LEAD ??RELIANCE ENDOTAK DF4 AF 59 CM 0272 [id number] [place] [employer] [place] 070883 ??1 Implanted STIMULATION THRESHOLDS: RV - ??Sense:8.4 [...] CBC with platelets (07/04/2021 12:48 PM CDT) [facility] gist Method Time Signature WBC Count 6.9 [...] City/State/ZIP Code Phon e Number LABORATORY [facility] [place] [address] [facility] Lab [address] [...] Address City/State/ZIP Code Phon e Number [facility] [place] [address] [phone] Care Lab [address] 1st floor, Room 20B EKG 12-lead, tracing only (07/04/2021 12:15 PM CDT) Component Value Ref Range Test Analysis Performed Pathologis t Method Time At Signature Systolic Blood mmHg RADIOLOGY Pressure RESULTS Diastolic Blood mmHg RADIOLOGY Pressure RESULTS Ventricular Rate 96 BPM RADIOLOGY RESULTS Atrial Rate 94 BPM RADIOLOGY RESULTS TN Interval ms RADIOLOGY RESULTS QRS Duration 140 ms RADIOLOGY RESULTS QT 418 ms RADIOLOGY RESULTS QTc 528 ms RADIOLOGY RESULTS P [place] degrees RADIOLOGY RESULTS R AXIS -79 degrees RADIOLOGY RESULTS T [place] 3 degrees RADIOLOGY RESULTS Interpretation Atrial fibrillation with premature ventricular beats RADIOLOGY ECG Left axis deviation RESULTS Right bundle branch block Inferior infarct , age undetermined Abnormal ECG When compared with ECG of 31-MAY-2018 13:40, Atrial fibrillation has replaced Sinus rhythm Confirmed by MD SAUNDRA, KAUR (1984), department editor TIMA CORONEL ([id number]) on 07/05/2021 6:24:46 PM Specimen Anatomical Collection [...] Heriberto Gaston, RN) Routine, 3 g, Intravenous, PRE-OP/PRE-TN OCEDURE, Starting on Sun07/04/21 at 1200, For [...] ED) 1401 (Given - Provider: Heriberto Gaston, SIENNA) ONCE PRN, Starting on Sun07/04/21 at 1401, Cardiac Intra-procedu re fentaNYL (PF) (SUBLIMAZE) injection (CANCELED) 1350 (Given - Provider: Heriberto Gaston, SIENNA)1358 (Given - Provider: Heriberto Gaston, RN)1423 (Given [...] grams documented in this encounter Care Teams Process Coach Relationship Specialty Start Date End Date Graham Licona MD PCP - General Family Medicine 06/30/21 [facility] [address] [place] [address] Timothy Smith MD Assigned Heart and Vascular 07/23/20 [address] [facility] [address] Provider [place] [address] documented as of this encounter
--- OUTSIDE RECORDS SUMMARY | 2022-08-22 06:53 | XMS_ITS | Encounter Summary ---
:1940 Author Organization [facility] Address [address] [place] [address] Care Team Providers Name Role Phone Slava Hernandez PA-C Primary Care Provider Timothy Smith MD Unavailable Reason for Visit CV Testing (Routine) - Closed Specialty Diagnoses / Procedures Referred By Contact Refer red To Contact Diagnoses Cardiac pacemaker in situ Chris De Leon MD Procedures Cardiac Device Check - In Clinic [address] [place] [address] Referral ID Status Reason Start Date Expiration Date Visits Requ ested Visits Authorized [id number] Closed 11/16/2020 11/16/2021 1 1 Encounter Details Date Type Department Care Team Description 02/16/2021 Ancillary Procedure [facility] Chris De Leon SSS (sick sinus syndrome) (H) (Primary Dx); Heart Clinic Cardiac pacemaker in situ [place] [address] [place] [address] [place], [place] [phone] [address] (Work) [phone] Social History Tobacco Use Types Packs/Day Years [...] [address] [place] [address] (Wo rk) 09/28/2022 Lab Lab 09/28/2022 Office Visit Cardiology Timothy Smith MD [address] [place] [address] Trudi Grayson APRN CNP [address] [address] 11/16/2022 Ancillary Procedure Cardiology Timothy Smith MD [address] [place] [id number] (Wo rk) documented as of this encounter [...] Range Method Time At Signature Date Time [id number] MEDTRONIC Interrogation Session Implantable [place] [employer] MEDTRONIC Pulse Generator Technology Coach Implantable L121 ESSENTIO EL MEDTRONIC Pulse Generator Model Implantable [id number] MEDTRONIC Pulse Generator Serial Number Type In Clinic MEDTRONIC Interrogation Session Clinic Name [facility] MEDTRONIC Implantable Pacemaker MEDTRONIC Pulse Generator Type Implantable [id number] MEDTRONIC Pulse Generator Implant Date Implantable Lead [facility] MED[facility]O RAUL Technology Coach Implantable Lead 2088TC Tendril MEDTRONI C Model STS Implantable Lead [id number] MEDTRONIC Serial Number Implantable Lead [id number] MEDTRONIC Implant Date Implantable Lead Bipolar Lead MEDTRONIC Polarity Type Implantable Lead UNKNOWN MEDTRONIC Location Detail 1 Implantable Lead Right Atrium [employer]TR[employer]IC Location Implantable Lead [facility] [employer] RAUL Technology Coach Implantable Lead 2088TC Tendril MEDTRONI C Model STS Implantable Lead [id number] MEDTRONIC Serial Number Implantable Lead [id number] MEDTRONIC Implant Date Implantable Lead Bipolar Lead [...] NSVT MEDTRONIC Statistic Vendor Type Category Episode [id number] MEDTRONIC Statistic Total Date Time End Episode 80 MEDTRONIC Statistic Recent Count Episode [place] MEDTRONIC Statistic Type Category Episode NSVT MEDTRONIC Statistic Vendor Type Category Episode SunOct 15 MEDTRONIC Statistic Recent 03:43:58 INSULATOR APPRENTICE 2019 Date Time Start Episode [id number] MEDTRONIC Statistic Recent Date Time End Anatomical Region Laterality Modality Other Specimen (Source) Anatomical Location Collection Method / Collectio n Time Received Time / Laterality Volume 02/16/2021 Narrative 02/21/2021 9:24 AM CDT Dezineforce Essentio (D) Pacemaker Device Check Patient seen in clinic for device evalua tion and iterative programming. AP: NA ?% ?? BACTERIOLOGY TEACHER: 39 % ?? Mode: VVIR 60-130 ?? [...] situ documented in this encounter Care Teams Tanning Solution Maker Relationship Specialty Start Date End Date Slava Hernandez, PCP - General Physician Drapery Examiner 07/02/1806/02 [facility] [address] [place] [address] Timothy Smith MD Assigned Heart and 07/23/20 [address] [facility] Vascular Provider [address] [place] [address] documented as of this encounter
--- OUTSIDE RECORDS SUMMARY | 2022-08-22 06:53 | XMS_ITS | Encounter Summary ---
:1940 Author Organization [facility] Address [address] [place] [address] Care Team Providers Name Role Phone Slava Hernandez PA-C Primary Care Provider Timothy Smith MD Unavailable Reason for Referral CV Testing (Routine) - Closed Specialty Diagnoses / Procedures Referred By Contact Refer red To Contact Diagnoses Cardiac pacemaker in situ Chris De Leon MD Procedures Cardiac Device Check - In Clinic [address] [place] [address] Referral ID Status Reason Start Date Expiration Date Visits Requ ested Visits Authorized [id number] Closed 11/16/2020 11/16/2021 1 1 O NEWS WRITER Reason for Visit CV Testing (Routine) - Closed Specialty Diagnoses / Procedures Referred By Contact Refer red To Contact Diagnoses Cardiac pacemaker in situ Chris De Leon MD Procedures Cardiac Device Check - Remote [address] [place] [address] Referral ID Status Reason Start Date Expiration Date Visits Requ ested Visits Authorized [id number] Closed 08/03/2020 08/03/2021 1 1 Encounter Details Date Type Department Care Team Description 11/16/2020 Ancillary Procedure [facility] Chris De Leon Cardiac pacemaker in [facility] situ Heart Care [address] [facility] [address] [place] [address] [place] [address] [phone] Social History Tobacco Use Types Packs/Day Years [...] Respiratory Therapy Timothy Smith MD [address] [place] [address] (Wo rk) 09/28/2022 Lab Lab 09/28/2022 Office Visit Cardiology Timothy Smith MD [address] [place] [address] Trudi Grayson APRN MICROBIOLOGY DIRECTOR [address] [place] [address] 11/16/2022 Ancillary Procedure Cardiology Timothy Smith MD [address] [place] [address] (Wo rk) documented as of this encounter Procedures Procedure Name Priority Date/Time Associated Comments Diagnosis INTERROGATION DEVICE Routine 11/16/2020 11:11 Cardiac pacemake r Results for this EVAL REMOTE PACER UP AM RADIO NEWS WRITER in situ procedu re are in TO 90 DAYS the results section. documented in this encounter Results PM DEVICE PROGRAMMING EVAL, DUAL LEAD PACER (02/16/2021 9:51 AM CDT) Component Value Ref Test Analysis Performed Pathologis t Range Method Time At Signature Date Time [id number] MEDTRONIC Interrogation Session Implantable [employer] MEDTRONIC Pulse Generator Documentation Clerk Implantable L121 ESSENTIO EL MEDTRONIC Pulse Generator Model Implantable [id number] MEDTRONIC Pulse Generator Serial Number Type In Clinic MEDTRONIC Interrogation Session Clinic Name [facility] MEDTRONIC Implantable Pacemaker MEDTRONIC Pulse Generator Type Implantable [id number] MEDTRONIC Pulse Generator Implant Date Implantable Lead [facility] RAUL Documentation Clerk Implantable Lead 2087TC Tendril MEDTRONI C Model STS Implantable Lead [id number] MEDTRONIC Serial Number Implantable Lead [id number] MEDTRONIC Implant Date Implantable Lead Bipolar Lead MEDTRONIC Polarity Type Implantable Lead UNKNOWN MEDTRONIC Location Detail 1 Implantable Lead Right Atrium MEDTRONIC Location Implantable Lead [facility] [employer] RAUL Documentation Clerk Implantable Lead 2087TC Tendril MEDTRONI C Model STS Implantable Lead [id number] MEDTRONIC Serial Number Implantable Lead [id number] MEDTRONIC [...] NSVT MEDTRONIC Statistic Vendor Type Category Episode [id number] MEDTRONIC Statistic Total Date Time End Episode 80 MEDTRONIC Statistic Recent Count Episode [place] MEDTRONIC Statistic Type Category Episode NSVT MEDMobee Statistic Vendor Type Category Episode SunOct 15 MEDTRONIC Seedrs Recent 03:43:58 RADIO NEWS WRITER 2019 Date Time Start Episode [id number] MEDTRONIC Statistic Recent Date Time End Anatomical Region Laterality Modality Other Specimen (Source) Anatomical Location Collection Method / Collectio n Time Received Time / Laterality Volume 02/16/2021 Narrative 02/21/2021 9:24 AM CDT [employer]around Essentio (D) Pacemaker Device Check Patient seen in clinic for device evalua tion and iterative programming. AP: NA ?% ?? CASING MAN: 39 % ?? Mode: VVIR 60-130 ?? [...] UP TO 90 DAYS (11/16/2020 11:11 AM RADIO NEWS WRITER) Component Value Ref Test Analysis Performed Pathologis t Range Method Time At Signature Date Time [id number] MEDTRONIC Interrogation Session Implantable [employer] MEDTRONIC Pulse Generator Documentation Clerk Implantable L121 ESSENTIO EL MEDTRONIC Pulse Generator Model Implantable [id number] MEDTRONIC Pulse Generator Serial Number Type Remote MEDTRONIC Interrogation Session Clinic Name [facility] MEDTRONIC Implantable Pacemaker MEDTRONIC Pulse Generator Type Implantable [id number] MEDTRONIC Pulse Generator Implant Date Implantable Lead [facility] MED[facility] RAUL Documentation Clerk Implantable Lead 2088TC Tendril MEDTRONI C Model STS Implantable Lead [id number] MEDTRONIC Serial Number Implantable Lead [id number] MEDTRONIC Implant Date Implantable Lead Bipolar Lead MEDTRONIC Polarity Type Implantable Lead UNKNOWN MEDTRONIC Location Detail 1 Implantable Lead Right Atrium MEDTRONIC Location Implantable Lead [facility] [employer] RAUL Documentation Clerk Implantable Lead 2088TC Tendril MEDTRONI C Model STS Implantable Lead [id number] MEDTRONIC Serial Number Implantable Lead [id number] MEDTRONIC Implant Date Implantable Lead Bipolar Lead [...] MEDTRONIC Pacing Threshold Pulse Width Battery Date [id number] MEDTRONIC Time of Measurements Battery Status Beginning of MEDTRONIC Service Battery 132 mo MEDTRONIC Remaining Longevity Battery 100 % MEDTRONIC Remaining Percentage Brandon Statistic [id number] MEDTRONIC Date Time Start Brandon Statistic [id number] MEDTRONIC Date Time End Brandon Statistic 0 % MEDTRONIC RA Percent Paced [place] Statistic 38 % MEDTRONIC RV Percent Paced [...] [place] MEDTRONIC Statistic Vendor Type Category Episode [id number] MEDTRONIC Statistic Recent Date Time Start Episode [id number] MEDTRONIC Statistic Recent Date Time End Episode [id number] MEDTRONIC Statistic Recent Date Time Start Episode [id number] MEDTRONIC Statistic Recent Date Time End Episode [id number] MEDTRONIC Statistic Recent Date Time Start Episode [id number] MEDTRONIC Statistic Recent Date Time End Episode [id number] MEDTRONIC Statistic Recent Date Time Start Episode [id number] MEDTRONIC Statistic Recent Date Time End Episode APM-97 MEDTRONIC Identifier Episode Type Periodic EGM MEDTRONIC Category Episode Date [id number] MEDTRONIC Time Episode [id number]-[id number] MEDTRONIC Identifier Episode Type Other MEDTRONIC Category Episode Date [id number] MEDTRONIC Time Episode V-1606 MEDTRONIC Identifier Episode Type VT MEDTRONIC Category Episode Date [id number] MEDTRONIC Time Episode Duration 20 s MEDTRONIC Episode V-1605 MEDTRONIC Identifier Episode Type VT MEDTRONIC Category Episode Date [id number] MEDTRONIC Time Episode Duration 14 s MEDTRONIC Episode V-1604 MEDTRONIC Identifier Episode Type VT MEDTRONIC Category Episode Date [id number] MEDTRONIC Time Episode Duration 17 s MEDTRONIC Episode V-1603 MEDTRONIC Identifier Episode Type VT MEDTRONIC Category Episode Date [id number] MEDTRONIC Time Episode Duration 14 s MEDTRONIC Episode V-1602 MEDTRONIC Identifier Episode Type VT MEDTRONIC Category Episode Vendor VT MEDTRONIC Type Category Episode Date [id number] MEDTRONIC Time Episode Duration 29 s MEDTRONIC Episode V-1601 MEDTRONIC Identifier Episode Type VT MEDTRONIC Category Episode Date [id number] MEDTRONIC Time Episode Duration 16 s MEDTRONIC Episode V-1600 MEDTRONIC Identifier Episode Type VT MEDTRONIC Category Episode Date [id number] MEDTRONIC Time Episode Duration 15 s MEDTRONIC Episode V-1599 MEDTRONIC Identifier Episode Type VT MEDTRONIC Category Episode Vendor VT MEDTRONIC Type Category Episode Date [id number] MEDTRONIC Time Episode Duration 175 s MEDTRONIC Episode V-1598 MEDTRONIC Identifier Episode Type VT MEDTRONIC Category Episode Date [id number] MEDTRONIC Time Episode Duration 14 s MEDTRONIC Episode V-1597 MEDTRONIC Identifier Episode Type VT MEDTRONIC Category Episode Date [id number] MEDTRONIC Time Episode Duration 14 s MEDTRONIC Episode V-1596 MEDTRONIC Identifier Episode Type VT MEDTRONIC Category Episode Date [id number] MEDTRONIC Time Episode Duration 16 s MEDTRONIC Episode V-1595 MEDTRONIC Identifier Episode Type VT MEDTRONIC Category Episode Date [id number] MEDTRONIC Time Episode Duration 16 s MEDTRONIC Episode V-1592 MEDTRONIC Identifier Episode Type VT MEDTRONIC Category Episode Vendor VT MEDTRONIC Type Category Episode Date [id number] MEDTRONIC Time Episode Duration 129 s MEDTRONIC Episode V-1591 MEDTRONIC Identifier Episode Type VT MEDTRONIC Category Episode Vendor VT MEDTRONIC Type Category Episode Date [id number] MEDTRONIC Time Episode Duration 21 s MEDTRONIC Episode V-1590 MEDTRONIC Identifier Episode Type VT MEDTRONIC Category Episode Vendor VT MEDTRONIC Type Category Episode Date [id number] MEDTRONIC Time Episode Duration 66 s MEDTRONIC Episode V-1585 MEDTRONIC Identifier Episode Type VT MEDTRONIC Category Episode Vendor VT MEDTRONIC Type Category Episode Date [id number] MEDTRONIC Time Episode Duration 67 s MEDTRONIC Anatomical Region Laterality Modality Other Specimen (Source) Anatomical Collection Method Collection Time Re ceived Time Location / / Volume Laterality 11/16/2020 12:42 AM RADIO NEWS WRITER Narrative 11/22/2020 12:22 PM RADIO NEWS WRITER Getaround Essentio (S) Remote PPM Device Check CASING MAN: 38%, Chronic AFib, taking Eliquis Mode: VVIR Presenting Rhythm: CASING MAN Heart Rate: adequate heart rates per his [...] situ documented in this encounter Care Teams Stamping Press Operator Relationship Specialty Start Date End Date Slava Hernandez, PCP - General Physician Soaping Department Supervisor 07/02/1806/02 PA-C [facility] [address] [place] [address] Timothy Smith MD Assigned Heart and 07/23/20 [address] [facility] [address] Vascular Provider [address] [place] [address] documented as of this encounter
--- OUTSIDE RECORDS SUMMARY | 2022-08-22 06:53 | XMS_ITS | Encounter Summary ---
:1940 Author Organization [facility] Address [address] [place] [address] Care Team Providers Name Role Phone Slava Hernandez PA-C Primary Care Provider Ankur Smith MD Unavailable Reason for Referral (Routine) - Closed Specialty Diagnoses / Procedures Referred By Contact Refer red To Contact Diagnoses Sustained [place] (ventricular tachycardia) [facility] [address] [place] [address] Referral ID Status Reason Start Date Expiration Date Visits Requ ested Visits Authorized [id number] Closed 02/17/2021 02/17/2022 1 1 V Testing [...] INITIAL SUBSTANCE [facility] US GUIDE FOR PERICARDIOCENTESIS [address] [place] [address] [facility] ECHO MYOCARD BX ZZC INJECTION, PERFLUTREN LIPID MICROSPHERES, PER ML [facility] STATISTIC IV PUSH SINGLE INITIAL SUBSTANCE MA ECHO MYOCARD BX MA INJECTION, PERFLUTREN LIPID MICROSPHERES, PER ML MA TTE W/DOPPLER, COMPLETE [address] MA IV PUSH SINGLE, INITIAL S UBSTANCE MA TTE W/DOPPLER, COMPLETE MA TTE W/DOPPLER, COMPLETE HC US GUIDE FOR PERICARDIOCENTESIS HC ECHO MYOCARD BX HC IV PUSH SINGLE, INITIAL SUBSTANCE HC STATISTIC IV PUSH SINGLE [place] [address] HC ECHO COMPLETE W DOPPLER W CONTRAST HC ECHO COMPLETE W DOPPLER W/O CONTRAST [id number] Referral ID Status Reason Start Date Expiration Date Visits Requ ested Visits Authorized [id number] Closed 02/17/2021 02/17/2022 1 1 Reason for Visit Reason Onset Date Comments Implantable Devices 02/16/2021 PPM, NSVT/sustained [place] Encounter Details Date Type Department Care Team Description 02/16/2021 Telephone [facility] [place] [facility] Triston Butler RN (PPM, NSVT/sustained [place]) [address] [place] [address] Social History Tobacco Use Types [...] Care Team Description 08/31/2022 Appointment Respiratory Therapy Ankur Smith MD [address] [place], [place] [address] (Wo rk) 09/28/2022 Lab Lab 09/28/2022 Office Visit Cardiology Ankur Smith MD [address] [place] [address] Trudi Grayson, FLACO MAILING MACHINE HELPER [address] [place] [address] 11/16/2022 Ancillary Procedure Cardiology Ankur Smith MD [address] [place] [address] (Wo rk) Scheduled Referrals Name Type Priority Associated Diagnoses Order S chedule Follow-Up with Referral Routine Sustained [place] Expected: Filter Bed Placer (ventricular 03/20/20 21 tachycardia) (H) (Approximat e), Expires: 02/17/2022 documented as of this encounter Results ECHO COMPLETE WITH CONTRAST (03/21/2021 1:18 PM CDT) Anatomical Region Laterality Modality Echocardiography Specimen (Source) Anatomical Collection Method Collection Time Re ceived Time Location / / Volume Laterality 03/21/2021 12:48 PM CDT Narrative 03/21/2021 2:22 PM CDT [id number]^KEELEY^ANKUR [facility]ch[facility] [address] [facility] [address] [place] [address] Name: RADHA VILLA : 1940 Study Date: 03/21/2021 12:48 PM Age: 80 yrs Gender: Male Patient Location: [facility] Reason For Study: Sustained VT (ventricu lar tachycardia) (H) Ordering Physician: ANKUR SMITH Referring Physician: LI, HUAGUI Performed By: RDZEHRA Sternb BSA: 2.5 m2 Height: 71 in Weight: 285 lb HR: 73 BP: 100/68 mmHg Procedure Complete Echo Adult. [facility]ison ([facility] #[id number]) given intravenously. Interpretation Summary The visual ejection [...] note might be different from the original. [id number]^KEELEY^ANKUR [facility] [address] [facility] [address] [place] [address] Name: RADHA VILLA : 1940 Study Date: 03/21/2021 12:48 PM Age: 80 yrs Gender: Male Patient Location: [facility] Reason For Study: Sustained VT (ventricu lar tachycardia) (H) Ordering Physician: ANKUR SMITH Referring Physician: ANKUR SMITH Performed By: MCKAY Saenz BSA: 2.5 m2 Height: 71 in Weight: 285 lb HR: 73 BP: 100/68 mmHg Procedure Complete Echo Adult. [facility]ison ([facility] #[id number]) given intravenously. Interpretation Summary The visual ejection [...] tachycardia documented in this encounter Care Teams Desktop Manager Relationship Specialty Start Date End Date Slava Hernandez, PCP - General Physician Pharmaceutical Salesperson 07/02/1806/02 PA-C [facility] [address] [place] [address] Ankur Smith MD Assigned Heart and 07/23/20 [address] [facility] S Vascular Provider [address] [place] [address] documented as of this encounter
--- OUTSIDE RECORDS SUMMARY | 2022-08-22 06:53 | XMS_ITS | Encounter Summary ---
:1940 Author Organization [facility] Address [address] [place] [address] Care Team Providers Name Role Phone Slava Hernandez PA-C Primary Care Provider Timothy Smith MD Unavailable Reason for Visit CV Testing (Routine) - Closed Specialty Diagnoses / Procedures Referred By Contact Refer red To Contact Diagnoses Cardiac pacemaker in situ SSS (sick sinus syndrome) (H) Steven Canchola Procedures Cardiac Device Check - Remote [address] [place] [address] Referral ID Status Reason Start Date Expiration Date Visits Requ ested Visits Authorized [id number] Closed 02/16/2021 02/16/2022 1 1 Encounter Details Date Type Department Care Team Description 05/18/2021 Ancillary [facility] Steven Canchola iac pacemaker in situ; Procedure [facility] MD Jose SSS (sick sinus syndrome) (H) Heart Care [address] [facility] [address] [place] [address] [place] [phone] (Wo rk) [address] [phone] Social History Tobacco Use Types Packs/Day Years [...] [address] [place] [address] (Wo rk) 09/28/2022 Lab Lab 09/28/2022 Office Visit Cardiology Timothy Smith MD [address] [place] [address] Trudi Grayson APRN LATEX CASTER [address] [place] [address] 11/16/2022 Ancillary Procedure Cardiology Timothy Smith MD [address] [place] [address] (Wo rk) documented as of this encounter [...] Range Method Time At Signature Date Time [id number] MEDTRONIC Interrogation Session Implantable [employer] [employer] MEDTRONIC Pulse Generator Dairy Farm Supervisor Implantable L121 ESSENTIO EL MEDTRONIC Pulse Generator Model Implantable 552011 MEDTRONIC Pulse Generator Serial Number Type Remote MEDTRONIC Interrogation Session Clinic Name [facility] MEDTRONIC Implantable Pacemaker MEDTRONIC Pulse Generator Type Implantable [id number] MEDTRONIC Pulse Generator Implant Date Implantable Lead [facility] [facility] [employer]O RAUL [employer]airy Farm Supervisor Implantable Lead 8TC Tendril MEDTRONI C Model STS Implantable Lead [id number] MEDTRONIC Serial Number Implantable Lead [id number] MEDTRONIC Implant Date Implantable Lead Bipolar Lead MEDTRONIC Polarity Type Implantable Lead UNKNOWN MEDTRONIC Location Detail 1 Implantable Lead Right Atrium MEDTRONIC Location Implantable Lead [facility] [facility] [employer] RAUL [employer] Supervisor Implantable Lead 2088TC Tendril MEDTRONI C Model STS Implantable Lead [id number] MEDTRONIC Serial Number Implantable Lead [id number] MEDTRONIC Implant Date Implantable Lead Bipolar Lead [...] 100 % MEDTRONIC Remaining Percentage Brandon Statistic [id number] MEDTRONIC Date Time Start Brandon Statistic MEDTRONIC [...] [place] MEDTRONIC Statistic Vendor Type Category Episode [id number] MEDTRONIC Statistic Recent Date Time Start Episode [id number] MEDTRONIC Statistic Recent Date Time End Episode [id number] MEDTRONIC Statistic Recent Date Time Start Episode [id number] MEDTRONIC Statistic Recent Date Time End Episode [id number] MEDTRONIC Statistic Recent Date Time Start Episode [id number] MEDTRONIC Statistic Recent Date Time End Episode [id number] MEDTRONIC Statistic Recent Date Time Start Episode [id number] MEDTRONIC Statistic Recent Date Time End Episode APM-99 MEDTRONIC Identifier Episode Type Periodic EGM MEDTRONIC Category Episode Date [id number] MEDTRONIC Time Episode RVAT-4098 MEDTRONIC Identifier Episode Type Other MEDTRONIC Category Episode Date [id number] MEDTRONIC Time Episode V-1629 MEDTRONIC Identifier Episode Type VT MEDTRONIC Category Episode Date [id number] MEDTRONIC Time Episode Duration 14 s MEDTRONIC Episode V-1628 MEDTRONIC Identifier Episode Type [place] MEDTRONIC Category Episode Date [id number] MEDTRONIC Time Episode Duration 16 s MEDTRONIC Anatomical Region Laterality Modality Other Specimen (Source) Anatomical Collection Method Collection Time Re ceived Time Location / / Volume Laterality 05/18/2021 12:41 AM CDT Narrative 05/24/2021 4:14 PM CDT [employer]boost Essentio (S) Remote PPM Device Check [place] EXCHANGE ADMINISTRATOR: 30% Mode: VVIR 60-130 Presenting Rhythm: [place] EXCHANGE ADMINISTRATOR Heart Rate: Adequate rates per histogram Sensing: [...] dysfunction documented in this encounter Care Teams Paid Search Marketing Analyst Relationship Specialty Start Date End Date Slava Hernandez, PCP - General Physician Conductor Sleeping Car 07/02/1806/02 [facility] [address] [place] [address] Timothy Smith MD Assigned Heart and 07/23/20 [address] Vascular Provider [address] [place] [address] documented as of this encounter
--- OUTSIDE RECORDS SUMMARY | 2022-08-22 06:53 | XMS_ITS | Encounter Summary ---
:1940 Author Organization [place] Address [address] [facility] [place] [address] Care Team Providers Name Role Phone Slava Hernandez PA-C Primary Care Provider Timothy Smith MD Unavailable Reason for Referral (Routine) - Closed Specialty Diagnoses / Procedures Referred By Contact Refer red To Contact Diagnoses Sustained VT (ventricular tachycardia) Cardiac pacemaker in situ [facility] Cv Cardiac Services Procedures Case Request EP: Implantable Cardioverter-Defibrillator (ICD) [address] [address] [place] [phone] Referral ID Status Reason Start Date Expiration Date Visits Requ ested Visits Authorized [id number] Closed 06/23/2021 06/23/2022 1 1 onsultation (Routine) - Closed Specialty Diagnoses / Procedures Referred By Contact Refer red To Contact Diagnoses Sustained VT (ventricular tachycardia) Cardiac pacemaker in situ [facility] Cv Cardiac Services [address] [address] [place] [phone] Referral ID Status Reason Start Date Expiration Date Visits Requ ested Visits Authorized [id number] Closed 06/23/2021 06/23/2022 1 1 Reason for Visit Reason Onset Date Comments Implantable Devices 06/23/2021 Encounter Details Date Type Department Care Team Description 06/23/2021 Telephone [facility] Sandrine Whitman Implantable Devices [facility] Heart [address] [facility] [address] [place] [address] Social History Tobacco Use Types [...] [address] [place] [address] (Wo rk) 09/28/2022 Lab Lab 09/28/2022 Office Visit Cardiology Timothy Smith MD [address] [place] [address] Trudi Grayson APRN LEARNING TECHNOLOGIES SPECIALIST [address] [place] [address] 11/16/2022 Ancillary Procedure Cardiology Timothy Smith MD [address] [place] [id number] (Wo rk) Scheduled Referrals Name Type Priority Associated Order Schedule Diagnoses Follow-Up with Referral Routine: Next Sustained VT Expected: Dental Internship available opening (ventricular tachycardia) (H) (Approximate), Cardiac pacemaker Expires: in situ 06/23/2022 documented as of this encounter Visit Diagnoses Diagnosis Sustained VT (ventricular tachycardia) - Primary Paroxysmal ventricular tachycardia Cardiac pacemaker in situ documented in this encounter Care Teams Control Panel Tester Relationship Specialty Start Date End Date Slava Hernandez, PCP - General Physician Cleat Maker 07/02/1806/02 PA-C [facility] [address] [place] [address] Timothy Smith MD Assigned Heart and 07/23/[address] Vascular Provider [address] [place] [address] documented as of this encounter
--- OUTSIDE RECORDS SUMMARY | 2022-08-22 06:53 | XMS_ITS | Encounter Summary ---
:1940 Author Organization [place] Address [address] [facility] [place] [address] Care Team Providers Name Role Phone Slava [...] 24 HRS ZZHC HOLTER SCAN 24 HRS SD HOLTER RECORDING 24 HRS SD HOLTER SCAN 24 HRS [address] [address] [employer] SD AMB BP MONITORING W/SW >= 24 HR, RECORD/SCAN/INTRP/RPT HC HOLTER RECORDING 24 HRS HC HOLTER SCAN 24 HRS, ANALYSIS WITH REPORT [place] [address] [address] [place] [address] Phone: Fax: Referral ID Status Reason Start Date Expiration Date Visits Requ ested Visits Authorized [id number] Closed 03/23/2021 03/23/2022 1 1 Reason for Visit CV Testing (Routine) - Closed Specialty Diagnoses / Procedures Referred By Contact Refer red To Contact Cardiology Diagnoses Sustained VT (ventricular tachycardia) Timothy Smith MD Rh Cv Cardiac Svc Rscc Procedures Holter Monitor 24 hour Adult Pediatric ZZC AMB BP MONITORING W/SW >=24 HR, RECORD/SCAN/INTRP/RPT ZZHC HOLTER RECORDING 24 HRS ZZHC HOLTER SCAN 24 HRS SD HOLTER RECORDING 24 HRS SD HOLTER SCAN [address] [address] [employer] SD AMB BP MONITORING W/SW >= 24 HR, RECORD/SCAN/INTRP/RPT HC HOLTER RECORDING 24 HRS HC HOLTER SCAN 24 HRS, ANALYSIS WITH REPORT [place] [address] [address] [place] [address] Phone: Fax: Referral ID Status Reason Start Date Expiration Date Visits Requ ested Visits Authorized [id number] Closed 03/23/2021 03/23/2022 1 1 Encounter Details Date Type Department Care Team Description 03/30/2021 Hospital Encounter [facility] Timothy Smith MD Sustained [place] [facility] [address] (ventricu [facility] Heart Care S [address] tachycardia) (H) [address] [employer] [place] [id number] [place], [place] (Work) [address] Social History Tobacco Use [...] Take 160 mg by 0 mouth daily. metoprolol succinate ER Take 1 tablet (50 90 tablet 3 03/23 (TOPROL-XL) 50 MG 24 hr mg) by mouth daily tabletIndications: Persistent atrial fibrillation (H) nitroGLYcerin (NITROSTAT) Place 1 tablet (0.4 100 tablet 3 0 02/24/2020 0.4 MG sublingual mg) under the tabletIndications: tongue every 5 Coronary artery disease minutes as needed involving teller coronary for chest pain artery of teller heart without angina pectoris apixaban ANTICOAGULANT Take 1 tablet (5 180 tablet 2 021 04/26/2021 (ELIQUIS ANTICOAGULANT) 5 mg) by mouth 2 MG tabletIndications: times daily A-fib (H) celecoxib (CELEBREX) 200 Take 200 mg by 0 06/30/2021 MG capsule mouth 2 times daily furosemide (LASIX) 40 MG Take 40 mg by mouth 0 08/16/2022 tablet daily GLIPIZIDE PO Take 5 mg [...] 08/31/2022 Appointment Respiratory Therapy Timothy Smith MD [address] [place] [address] (Wo rk) 09/28/2022 Lab Lab 09/28/2022 Office Visit Cardiology Timothy Smith MD [address] [place] [address] Trudi Grayson APRN DIGITAL MEDIA SPECIALIST [address] [place] [address] 11/16/2022 Ancillary Procedure Cardiology Timothy Smith MD [address] [place], [place] [address]205 (Wo rk) documented as of this encounter [...] tachycardia documented in this encounter Care Teams Serger Relationship Specialty Start Date End Date Slava Hernandez, PCP - General Physician Chemistry Physics Teacher 07/02/1806/02 PA-C [facility] [address] [place] [address] Timothy Smith MD Assigned Heart and 07/23/20 [address] Vascular Provider [address] [place], [place] [address] documented as of this encounter
--- OUTSIDE RECORDS SUMMARY | 2022-08-22 06:53 | XMS_ITS | Encounter Summary ---
:1940 Author Organization [place] Address [address] [facility] [place] [address] Care Team Providers Name Role Phone Slava Hernandez PA-C Primary Care Provider Timothy Smith MD Unavailable Encounter Details Date Type Department Care Team Description 06/29/2021 Orders Only [facility] Tony Reyes Sustai ned [facility] RN (ventricu lar Heart Care tachycardia) (H) [address] [facility] (Primary Dx) [facility] [address] [place] [address] Social [...] [address] [place] [address] (Wo rk) 09/28/2022 Lab Lab 09/28/2022 Office Visit Cardiology Timothy Smith MD [address] [place] [address] Trudi Grayson APRN SENIOR DATABASE PROGRAMMER [address] [address] 11/16/2022 Ancillary Procedure Cardiology Timothy Smith MD [address] [place] [address] (Wo rk) documented as of this encounter Visit Diagnoses Diagnosis Sustained VT (ventricular tachycardia) - Primary Paroxysmal ventricular tachycardia documented in this encounter Care Teams Health Director Relationship Specialty Start Date End Date Slava Hernandez, PCP - General Physician Teenage Program Director 07/02/1806/02 PA-C [facility] [address] [place] [address] Timothy Smith MD Assigned Heart and 07/23/20 [address] Vascular Provider [address] [place] [address] documented as of this encounter
--- OUTSIDE RECORDS SUMMARY | 2022-08-22 06:53 | XMS_ITS | Encounter Summary ---
:1940 Author Organization [place] Address [address] [facility] [place] [address] Care Team Providers Name Role Phone Slava [...] 08/31/2022 Appointment Respiratory Therapy Timothy Smith MD [address] [place] [phone] (Wo rk) 09/28/2022 Lab Lab 09/28/2022 Office Visit Cardiology Timothy Smith MD [address] [place] [address] Trudi Grayson APRN ONLINE MARKETING COORDINATOR [address] [place] [id number] 11/16/2022 Ancillary Procedure Cardiology Timothy Smith MD [address] [place] 269395 (Wo rk) documented as of this encounter Visit Diagnoses Not on filedocumented in this encounter Care Teams Arson Investigator Relationship Specialty Start Date End Date Slava Hernandez, PCP - General Physician Reed Repairer 07/02/1806/02 PA-C [facility] [address] [place] [address] Timothy Smith MD Assigned Heart and 07/23/20 [address] Vascular Provider [address] [place] [address] documented as of this encounter
--- OUTSIDE RECORDS SUMMARY | 2022-08-22 06:53 | XMS_ITS | Encounter Summary ---
:1940 Author Organization [place] Address [address] [place] [address] Care Team Providers Name Role Phone Slava [...] INITIAL SUBSTANCE ZZHC US GUIDE FOR PERICARDIOCENTESIS [address] [employer] [address] [place] [address] ZZHC ECHO MYOCARD BX ZZC INJECTION, PERFLUTREN LIPID MICROSPHERES, PER ML ZZHC STATISTIC IV PUSH SINGLE INITIAL SUBSTANCE AK ECHO MYOCARD BX AK INJECTION, PERFLUTREN LIPID MICROSPHERES, PER ML AK TTE W/DOPPLER, COMPLETE [address] AK IV PUSH SINGLE, INITIAL S UBSTANCE AK TTE W/DOPPLER, COMPLETE AK TTE W/DOPPLER, COMPLETE HC US GUIDE FOR PERICARDIOCENTESIS HC ECHO MYOCARD BX HC IV PUSH SINGLE, INITIAL SUBSTANCE HC STATISTIC IV PUSH [place] [address] HC ECHO COMPLETE W DOPPLER W CONTRAST HC ECHO COMPLETE W DOPPLER W/O CONTRAST [address] Referral ID Status Reason Start Date Expiration Date Visits Requ ested Visits Authorized [id number] Closed 02/17/2021 02/17/2022 1 1 Reason for [...] INITIAL SUBSTANCE ZZHC US GUIDE FOR PERICARDIOCENTESIS [address] [employer] [address] [facility] ZZHC ECHO MYOCARD BX ZZC INJECTION, PERFLUTREN LIPID MICROSPHERES, PER ML ZZHC STATISTIC IV PUSH SINGLE INITIAL SUBSTANCE AK ECHO MYOCARD BX AK INJECTION, PERFLUTREN LIPID MICROSPHERES, PER ML AK TTE W/DOPPLER, COMPLETE [address] AK IV PUSH SINGLE, INITIAL S UBSTANCE AK TTE W/DOPPLER, COMPLETE AK TTE W/DOPPLER, COMPLETE HC US GUIDE FOR PERICARDIOCENTESIS HC ECHO MYOCARD BX HC IV PUSH SINGLE, INITIAL SUBSTANCE HC STATISTIC IV PUSH SINGLE [place] [address] HC ECHO COMPLETE W DOPPLER W CONTRAST HC ECHO COMPLETE W DOPPLER W/O CONTRAST [address] Referral ID Status Reason Start Date Expiration Date Visits Requ ested Visits Authorized [id number] Closed 02/17/2021 02/17/2022 1 1 Encounter Details Date Type Department Care Team Description 03/21/2021 Hospital Encounter [facility] Ankur mSith MD Sustained VT [address] (ventr icular Heart Care [address] tachycardia) (H) [address] [facility] [place] [address] (Primary Dx) [facility] [phone] [address] (Work) [place] [address] Social History [...] Take 160 mg by 0 mouth daily. nitroGLYcerin (NITROSTAT) Place 1 tablet (0.4 100 tablet 3 0 02/24/2020 0.4 MG sublingual mg) under the tabletIndications: tongue every 5 Coronary artery disease minutes as needed involving yomba shoshone coronary for chest pain artery of yomba shoshone heart without angina pectoris apixaban ANTICOAGULANT Take [...] 08/31/2022 Appointment Respiratory Therapy Ankur Smith MD [address] [place] [id number] (Wo rk) 09/28/2022 Lab Lab 09/28/2022 Office Visit Cardiology Ankur Smith MD [address] [place] 847[address] Trudi Grayson APRN NORMALIZER [address] 096[address] 11/16/2022 Ancillary Procedure Cardiology Ankur Smith MD [address] [place] [id number] (Wo rk) documented as of this encounter [...] PM CDT Narrative 03/21/2021 2:22 PM CDT [id number]^KEELEY^ANKUR [facility] Heart Echocardiography Laboratory [address] [facility] [address] [place] [address] Name: RADHA FAROOQ : 1940 Study Date: 03/21/2021 12:48 PM Age: 80 yrs Gender: Male Patient Location: [facility] Reason For Study: Sustained VT (ventricu lar tachycardia) (H) Ordering Physician: ANKUR SMITH Referring Physician: ANKUR SMITH Performed By: MCKAY Saenz BSA: 2.5 m2 Height: 71 in Weight: 285 lb HR: 73 BP: 100/68 mmHg Procedure Complete Echo Adult. Optison ([facility] #[id number]) given intravenously. Interpretation Summary The visual ejection [...] note might be different from the original. [id number] [facility] [id number] [id number]^KEELEY^ANKUR [facility] Heart Echocardiography Laboratory [address] [facility] [address] [place] [address] Name: RADHA FAROOQ : 1940 Study Date: 03/21/2021 12:48 PM Age: 80 yrs Gender: Male Patient Location: [facility] Reason For Study: Sustained VT (ventricu lar tachycardia) (H) Ordering Physician: ANKUR SMITH Referring Physician: ANKUR SMITH Performed By: MCKAY Saenz BSA: 2.5 m2 Height: 71 in Weight: 285 lb HR: 73 BP: 100/68 mmHg Procedure Complete Echo Adult. Optison ([facility] #[id number]) given intravenously. Interpretation Summary The visual ejection [...] On Sun03/21/21 at 1330, For 1 dose, [facility] [id number] sodium chloride (PF) 0.9% PF flush 10 mL Given 03/21/2021 1:19 PM CDT 10 mLs 10 mL, Intravenous, ONCE, On Sun03/21/21 at 1330, For 1 dose documented in this encounter Care Teams Registered Nurse Hh Case Manager Relationship Specialty Start Date End Date Slava Hernandez, PCP - General Physician Power Cleaner Operator 07/02/1806/02 PA-C [facility] [address] [place] [address] Ankur Smith MD Assigned Heart and 07/23/20 [address] [facility] S Vascular Provider [address] [place] [address] documented as of this encounter
--- OUTSIDE RECORDS SUMMARY | 2022-08-22 06:53 | XMS_ITS | Encounter Summary ---
:1940 Author Organization [place] Address [facility] [place] [address] Care Team Providers Name Role Phone Timothy Smith MD Unavailable Graham Licona MD Primary Care Provider Encounter Details Date Type Department Care Team Description 07/01/2021 [facility] for screening for Hospital other viral diseases [address] [place] [address] Social History Tobacco Use [...] [address] [place] [phone] (Wo rk) 09/28/2022 Lab Lab 09/28/2022 Office Visit Cardiology Timothy Smith MD [address] [place] [address] Trudi Grayson, FISHING ROD TRIMMER MEAT PULLER [address] [place] [address] 11/16/2022 Ancillary Procedure Cardiology Timothy Smith MD [address] [place] [address] (Wo rk) documented as of this encounter [...] using the Aptima SARS-CoV-2 Assay on the Pharmalink Instrument System. Additional in formation about this [...] COVID-19. This test was validated by the [facility] Infectious Diseases Diagnostic Laboratory. This lab oratory is certified under the Clinical Laboratory Improvement Amen dments of 1987 (CLIA-88) as qualified to perform high complexity lab oratory testing. Timothy Smith MD LAB - MICRO GENERAL ORDERABL ES Performing Organization Address City/State/ZIP Code Phon e Number [facility] [place] [address] Diag. Lab [address] [facility], Room [address]297 [facility] Infectious [place], [place] [phone] Diseases Diagnostic [id number], [facility] Lab (IDDL) [address] [facility], Room D297 documented in this encounter Visit Diagnoses Diagnosis Encounter for screening for other viral diseases documented in this encounter Care Teams Preschool Substitute Teacher Relationship Specialty Start Date End Date Graham Licona MD PCP - General Family Medicine 06/30/21 [facility] [address] [place] [address] Timothy Smith MD Assigned Heart and Vascular 07/23/20 [address] Provider [place] [address] documented as of this encounter
--- OUTSIDE RECORDS SUMMARY | 2022-08-22 06:53 | XMS_ITS | Encounter Summary ---
:1940 Author Organization [place] Address [address] [facility] [place] [address] Care Team Providers Name Role Phone Slava [...] MD [address] [place] [id number] (Wo rk) 09/28/2022 Lab Lab 09/28/2022 Office Visit Cardiology Timothy Smith MD [address] [place] [phone] Trudi Grayson APRN COURTROOM DEPUTY OR CALENDAR CLERK [address] [address]17[address] 11/16/2022 Ancillary Procedure Cardiology Timothy Smith MD [address] [place] 150685 (Wo rk) documented as of this encounter Visit Diagnoses Not on filedocumented in this encounter Care Teams Software Asset Manager Relationship Specialty Start Date End Date Slava Hernandez, PCP - General Physician Refractory Furnace Designer 07/02/1806/02 PA-C [facility] [address] [place] [address] Timothy Smith MD Assigned Heart and 07/23/20 [address] Vascular Provider [address] [place] [id number] documented as of this encounter
--- OUTSIDE RECORDS SUMMARY | 2022-08-22 06:53 | XMS_ITS | Encounter Summary ---
:1940 Author Organization [place] Address [address] [facility] [place] [address] Care Team Providers Name Role Phone Slava Hernandez PA-C Primary Care Provider Timothy Smith MD Unavailable Reason for Visit Reason Onset Date Comments Medication Question 02/02/2021 side effects? Encounter Details Date Type Department Care Team Description 02/02/2021 Telephone [facility] [place] Medic ation Question [facility] SIENNA Butler (side eff ects?) Heart Care [address] [place] [address] [address] [place] [address] Social History Tobacco Use Types [...] Respiratory Therapy Timothy Smith MD [address] [place] 015195 (Wo rk) 09/28/2022 Lab Lab 09/28/2022 Office Visit Cardiology Timothy Smith MD [address] [place] [address] Trudi Grayson APRN R D MANAGER [address] [address] 11/16/2022 Ancillary Procedure Cardiology Timothy Smith MD [address] [place] [address] (Wo rk) documented as of this encounter Visit Diagnoses Not on filedocumented in this encounter Care Teams Roof Technician Relationship Specialty Start Date End Date Slava Hernandez, PCP - General Physician Heel Seat Fitter 07/02/1806/02 PA-C [facility] [address] [place] [address] Timothy Smith MD Assigned Heart and 07/23/20 [address] Vascular Provider [address] [place] [phone] documented as of this encounter
--- OUTSIDE RECORDS SUMMARY | 2022-08-22 06:53 | XMS_ITS | Encounter Summary ---
:1940 Author Organization [place] Address [address] [facility] [place] [address] Care Team Providers Name Role Phone Slava [...] Appointment Respiratory Therapy Timothy Smith MD [address] [place] [id number] (Wo rk) 09/28/2022 Lab Lab 09/28/2022 Office Visit Cardiology Timothy Smith MD [address] [place] 687385 Trudi Grayson APRN COB SAWYER [address] [id number] 11/16/2022 Ancillary Procedure Cardiology Timothy Smith MD [address] [place] [phone] (Wo rk) documented as of this encounter Visit Diagnoses Not on filedocumented in this encounter Care Teams Supervisor Shearing Relationship Specialty Start Date End Date Slava Hernandez, PCP - General Physician Automation Tender 07/02/1806/02 PA-C [facility] [address] [place] [address] Timothy Smith MD Assigned Heart and 07/23/20 [address] Vascular Provider [address] [place] [address]40[address] documented as of this encounter
--- OUTSIDE RECORDS SUMMARY | 2022-08-22 06:53 | XMS_ITS | Encounter Summary ---
:1940 Author Organization [place] Address [address] [facility] [place] [address] Care Team Providers Name Role Phone Slava Hernandez PA-C Primary Care Provider Timothy Smith MD Unavailable Reason for Referral (Routine) - Closed Specialty Diagnoses / Procedures Referred By Contact Refer red To Contact Diagnoses Sustained VT (ventricular tachycardia) Timothy Smith MD [address] [place] [address] Referral ID Status Reason Start Date Expiration Date Visits Requ ested Visits Authorized [id number] Closed 03/23/2021 03/23/2022 1 1 V Testing (Routine) - Closed Specialty Diagnoses / Procedures Referred By Contact Refer red To Contact Cardiology Diagnoses Sustained VT (ventricular tachycardia) Timothy Smith MD Cv Cardiac Svc Rscc Procedures Holter Monitor 24 hour Adult Pediatric ZZC AMB BP MONITORING W/SW >=24 HR, RECORD/SCAN/INTRP/RPT ZZHC HOLTER RECORDING 24 HRS ZZHC HOLTER SCAN 24 HRS PA HOLTER RECORDING 24 HRS PA HOLTER SCAN [address] [address] [employer] PA AMB BP MONITORING W/SW >= 24 HR, RECORD/SCAN/INTRP/RPT HC HOLTER RECORDING 24 HRS HC HOLTER SCAN 24 HRS, ANALYSIS WITH REPORT [place] [address] [address] [place] [address] Phone: Fax: Referral ID Status Reason Start Date Expiration Date Visits Requ ested Visits Authorized [id number] Closed 03/23/2021 03/23/2022 1 1 Reason for Visit Reason Comments FU Cardiac testing review echo, discuss upgrade - ekg done (Routine) - Closed Specialty Diagnoses / Procedures Referred By Contact Refer red To Contact Diagnoses Sustained VT (ventricular tachycardia) C[facility] Cardiac Services [address] [facility] [address] [place] [address] Referral ID Status Reason Start Date Expiration Date Visits Requ ested Visits Authorized [id number] Closed 02/17/2021 02/17/2022 1 1 Encounter Details Date Type Department Care Team Description 03/23/2021 Office Visit [facility] Timothy Smith MD Sustained VT (ventricular tachycardia) ( H); [facility] [address] Persistent atrial fibrillati on (H) [address] [facility] [address] [facility] [address] [place] [address] [place] [address] Social History Tobacco Use [...] upgrade. Timothy Smith MD cc: HANK Handley [facility] [address] [place], [address] Timothy Smith MD MT: patito Name: RADHA VILLA MRN: [id number] Account: [id number] : 1940 Service Date: 03/23/2021 Document: [id number] Mary Post CMA - 03/23/2021 1:45 PM CDT A decision aid for implantable cardioverter-defibrillatiors (ICD) given to patient at office visit to review before seeing provider. Timothy Smith MD - 03/23/2021 1:45 PM CDT HPI and Plan: See dictation Orders Placed This Encounter Procedures ??? Follow-Up with Pneumatic Press Hand ??? EKG 12-lead complete w/read (Future)- to [...] on phone: None Gets together: None Attends rastafari service: None Active member of club or [...] MD [address] [place] [address] documented in this encounter Plan of Treatment Upcoming Encounters Date Type Specialty Care Team Description 08/31/2022 Appointment Respiratory Therapy Timothy Smith MD [address] [place] [phone] (Wo rk) 09/28/2022 Lab Lab 09/28/2022 Office Visit Cardiology Timothy Smith MD [address] [place] [phone] Trudi Grayson APRN JACKER [address] [address] 11/16/2022 Ancillary Procedure Cardiology Timothy Smith MD [address] [place] [id number] (Wo rk) Scheduled Referrals Name Type Priority Associated Diagnoses Order S chedule Follow-Up with Referral Routine Sustained VT Expected: Pneumatic Press Hand (ventricular 04/22/20 21 tachycardia) (H) (Approximat e), [...] fibrillation documented in this encounter Care Teams Garageman Relationship Specialty Start Date End Date Slava Hernandez, PCP - General Physician Furnace Operator Oil Or Gas 07/02/1806/02 PA-C [facility] [address] [place] [address] Timothy Smith MD Assigned Heart and 07/23/20 [address] Vascular Provider [address] [place] [address] documented as of this encounter
--- OUTSIDE RECORDS SUMMARY | 2022-08-22 06:53 | XMS_ITS | Encounter Summary ---
:1940 Author Organization [place] Address [address] [facility] [place] [address] Care Team Providers Name Role Phone Slava Hernandez PA-C Primary Care Provider Timothy Smith MD Unavailable Encounter Details Date Type Department Care Team Description 04/26/2021 Orders Only [facility] Timothy Smith MD Encounter for [facility] [place] [address] screening for other [address] viral diseases [facility] [address] [place] [address] [place] [phone] Social History Tobacco Use Types Packs/Day Years [...] Appointment Respiratory Therapy Timothy Smith MD [address] [place] [phone] (Wo rk) 09/28/2022 Lab Lab 09/28/2022 Office Visit Cardiology Timothy Smith MD [address] [place] [address] Trudi Grayson APRN EXCEPTIONAL NEEDS TEACHER [address]ames [place] [address] 11/16/2022 Ancillary Procedure Cardiology Timothy Smith MD [address] [place] [id number] (Wo rk) documented as of this encounter Results Asymptomatic COVID-19 Virus (Coronavirus) by PCR Nasopharyngeal (07/01/2021 9:31 AM CDT) [facility] Signature SARS CoV2 PCR Negative Negative [...] using the Aptima SARS-CoV-2 Assay on the [employer] Instrument System. Additional in formation about this [...] or target RNA in concentration below the kodi of detection for the assay. The possibility of a false negati ve should be considered if the patient's recent exposure or clinica l presentation suggests COVID-19. This test was validated by the [facility]. This lab oratory is certified under the Clinical Laboratory Improvement Amen dments of 1987 (CLIA-88) as qualified to perform high complexity lab oratory testing. Timothy Smith MD LAB - MICRO GENERAL ORDERABL ES Performing Organization Address City/State/ZIP Code Phon e Number [facility] [place] [address] Diag. Lab [address] [facility], Room [address]297 [facility] Infectious [place], [place] [phone] Diseases Diagnostic [phone], [facility] Lab (IDDL) [address] [facility], Room D297 documented in this encounter Visit Diagnoses Diagnosis Encounter for screening for other viral diseases documented in this encounter Care Teams School Program Director Relationship Specialty Start Date End Date Slava Hernandez, PCP - General Physician Drywall Finishing Foreman 07/02/1806/02 PA-C [facility] [address] [place] [address] Timothy Smith MD Assigned Heart and 07/23/20 [address] Vascular Provider [address] [place] [address] documented as of this encounter
--- OUTSIDE RECORDS SUMMARY | 2022-08-22 06:53 | XMS_ITS | Encounter Summary ---
:1940 Author Organization [place] Address [address] [place] [address] Care Team Providers Name Role Phone Slava Hernandez PA-C Primary Care Provider Timothy Smith MD Unavailable Encounter Details Date Type Department Care Team Description 04/28/2021 Telephone [facility] Keyshawn Myers RN [address] [place] [address] Social History Tobacco Use Types [...] [address] [place] [address] (Wo rk) 09/28/2022 Lab Lab 09/28/2022 Office Visit Cardiology Timothy Smith MD [address] [place] [address] Trudi Grayson APRN SET UP MECHANIC COATING MACHINES [address] [address] 11/16/2022 Ancillary Procedure Cardiology Timothy Smith MD [address] [place] [address] (Wo rk) documented as of this encounter Visit Diagnoses Not on filedocumented in this encounter Care Teams Drafter Chief Design Relationship Specialty Start Date End Date Slava Hernandez, PCP - General Physician Senior Naval Parachutist 07/02/1806/02 PA-C [facility] [address] [place] [address] Timothy Smith MD Assigned Heart and 07/23/20 [address] Vascular Provider [address] [place] [address] documented as of this encounter
--- OUTSIDE RECORDS SUMMARY | 2022-08-22 06:53 | XMS_ITS | Encounter Summary ---
:1940 Author Organization [place] Address [address] [facility] [place] [address] Care Team Providers Name Role Phone Timothy Smith MD Unavailable Graham Licona MD Primary Care Provider Reason for Visit Reason Comments H & P For ICD upgrade Consultation (Routine) - Closed Specialty Diagnoses / Procedures Referred By Contact Refer red To Contact Diagnoses Sustained [place] (ventricular tachycardia) Cardiac pacemaker in situ [facility] [address] [facility] [address] [place] [phone] Referral ID Status Reason Start Date Expiration Date Visits Requ ested Visits Authorized [id number] Closed 06/23/2021 06/23/2022 1 1 Encounter Details Date Type Department Care Team Description 06/30/2021 Office Visit [facility] Tammy Montenegro [place] (ventricular tachycardia) (H); [facility] Clinic Patt Torres PA-C Cardiac pacemaker in situ; [address] Type 2 diabetes mellitus with complication (H); [place] [address] Persistent atrial fibrillation (H) [place] [phone] [place] [phone] (Wo rk) Social History Tobacco Use Types [...] today! 1. Reviewed your recent hospitalization at [place]. I'll look into this more and let [...] 8 AM, thennothing to eat/drink after 0800. [phone] documented in this encounter Progress Notes Tammy Montenegro PA-C - 06/30/2021 7:30 AM CDT [facility] I had the pleasure of [...] (diabetes, CAD, age) 5. 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 He did not ever have an AV node ablation. 6. 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 We believe he had a VG -OM, VG-RCA, VG-LAD and VG-D at that time. Angiogram01/2016 showed patent VGs! 7. 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 8. Obstructive sleep apnea, type 2 diabetes, obesity 9. Recent GI bleed/bleeding ulcer - admitted [facility] 06/04-03/2021. Two units pRBCs given. EGD reportedly [...] me that he was recently admitted to [facility] d/t dark tarry stools 06/02-01/2021 (?). He [...] pRBCs. We'll work on getting records from [facility]. No issues with palpitations. No dizziness, lightheadedness since the 2 that prompted him to agree toICD implantation this summer. No syncope/falls. No c/o CP. Thinks breathing is stable. He's not taking Celebrex anymore (since hospital discharge) and aches b/c of this, but not anything he wasn't expecting. ADDENDUM 06/30/2021 REVIEWED NOTES FROM [facility]. Pt admitted 06/03- 03/2021 for acute [...] RBBB Dino Sci PPM 05/2021, showed 30% ESTATE ADMINISTRATOR in VVIR 60/130. 2 HVR with EGMs showing AFib/RVR to 35seconds Echocardiogram 03/2021 - EF 50-55%. Mod decreased RVSF. MARTA (mod). Mod MAC with trace MR. Trace TR with RVSP 36+RAP. RA pressure 8mmHg. Trivial aortic sclerosis with trace-mild AI. Root OK. asc ao mildly dilated 3.7 cm Angiogram 01/2016 - patent bypass grafts Plan: Get [facility] records re: GI Bleed ICD upgrade as [...] ICD therapy was provided today and reviewed [id number]. The main points addressed in the handout were further discussed today. All questions/concerns were addressed. After a good discussion, the patient verbalized understanding and has agreed to proceed with ICD implantation. ??? [place] Decision Making Aid PLAN: ??? ICD upgrade [...] cephalexin x 7 days given early Jun @[facility]) 2. CAD ??? S/p 4 v CABG [...] BRBPR/melena PLAN: ??? Will work on getting [facility] documents ??? CBC will be completed at [...] Other Topics Concern ??? Parent/sibling w/ CABG, MO or angioplasty before 65F 55M? No ??? [...] Gatherings with Friends and Family: ??? Attends Anabaptism Services: ??? Active Member of Clubs or [...] [address] [place] [phone] (Wo rk) 09/28/2022 Lab Lab 09/28/2022 Office Visit Cardiology Timothy Smith MD [address] [place] [address] Trudi Grayson APRN SENIOR MEDICAL BILLING SPECIALIST [address] [address] 11/16/2022 Ancillary Procedure Cardiology Timothy Smith MD [address] [place] [address] (Wo rk) documented as of this encounter Visit Diagnoses Diagnosis Sustained VT (ventricular tachycardia) Paroxysmal ventricular tachycardia Cardiac pacemaker in situ Type 2 diabetes mellitus with complicati on (H) Persistent atrial fibrillation (H) Atrial fibrillation documented in this encounter Care Teams Linemarker Relationship Specialty Start Date End Date Graham Licona MD PCP - General Family Medicine 06/30/21 [facility] [address] [place] [address] Timothy Smith MD Assigned Heart and Vascular 07/23/20 [address] Provider [place] [phone] documented as of this encounter
--- OUTSIDE RECORDS SUMMARY | 2022-08-22 06:53 | XMS_ITS | Encounter Summary ---
:1940 Author Organization [place] Address [address] [facility] [place] [address] Care Team Providers Name Role Phone Slava [...] Respiratory Therapy Timothy Smith MD [address] [place] [phone] (Wo rk) 09/28/2022 Lab Lab 09/28/2022 Office Visit Cardiology Timothy Smith MD [address] [place] [phone] Trudi Grayson APRN FOOD PREP WORKER [address] [address] 11/16/2022 Ancillary Procedure Cardiology Timothy Smith MD [address] [place] 125135 (Wo rk) documented as of this encounter Visit Diagnoses Not on filedocumented in this encounter Care Teams Brine Purifier Relationship Specialty Start Date End Date Slava Hernandez, PCP - General Physician Quality Engineering Manager 07/02/1806/02 PA-C [facility] [address] [place] [address] Timothy Smith MD Assigned Heart and 07/23/20 [address] Vascular Provider [address] [place] [id number] documented as of this encounter
--- OUTSIDE RECORDS SUMMARY | 2022-08-22 06:53 | XMS_ITS | Encounter Summary ---
:1940 Author Organization [place] Address [address] [facility] [place] [address] Care Team Providers Name Role Phone Timothy Smith MD Unavailable Graham Licona MD Primary Care Provider Reason for Visit Reason Comments Clinic Care Coordination - Follow-up Encounter Details Date Type Department Care Team Description 06/30/[address] [facility] Tammy Montenegro Clinic Care Heart Clinic Patt Torres PA-C Coordination - [address] [facility] [address] [facility] [address] [place] [facility] [place] [place] [phone] Social History Tobacco Use Types Packs/Day [...] primary prevention on 07/04. Pt of Dr. Smith'kimo. FYI - I met him and he let me know that he'd been at [facility] for GI bleed/ulcer~. He's been off Eliquis [...] Respiratory Therapy Timothy Smith MD [address] [place] [phone] (Wo rk) 09/28/2022 Lab Lab 09/28/2022 Office Visit Cardiology Timothy Smith MD [address] [place] [address] Trudi Grayson APRN WATCH INSPECTOR [address] [place] [address] 11/16/2022 Ancillary Procedure Cardiology Timothy Smith MD [address] [place] [address] (Wo rk) documented as of this encounter Visit Diagnoses Not on filedocumented in this encounter Care Teams Enrichment Teacher Relationship Specialty Start Date End Date Graham Licona MD PCP - General Family Medicine 06/30/21 [facility] [address] [place] [address] Timothy Smith MD Assigned Heart and Vascular 07/23/20 [address] Provider [place] [phone] documented as of this encounter
--- OUTSIDE RECORDS SUMMARY | 2022-08-22 06:53 | XMS_ITS | Encounter Summary ---
:1940 Author Organization [place] Address [address] [facility] [place] [address] Care Team Providers Name Role Phone Slava [...] MD [address] [place] [phone] (Wo rk) 09/28/2022 Lab Lab 09/28/2022 Office Visit Cardiology Timothy Smith MD [address] [place] [phone] Trudi Grayson APRN COMMUNICATIONS EQUIPMENT INSTALLER [address] [id number] 11/16/2022 Ancillary Procedure Cardiology Timothy Smith MD [address] [place] 616555 (Wo rk) documented as of this encounter Visit Diagnoses Not on filedocumented in this encounter Care Teams Mc Kay Stitcher Relationship Specialty Start Date End Date Slava Hernandez, PCP - General Physician Hr Intern 07/02/1806/02 PA-C [facility] [address] [place] [address] Timothy Smith MD Assigned Heart and 07/23/20 [address] Vascular Provider [address] [place] [id number] documented as of this encounter
--- OUTSIDE RECORDS SUMMARY | 2022-08-22 06:54 | XMS_ITS | Encounter Summary ---
:1940 Author Organization [place] Address [address] [facility] [place] [address] Care Team Providers Name Role Phone Slava Hernandez PA-C Primary Care Provider Reason for Referral (Routine) - Closed Specialty Diagnoses / Procedures Referred By Contact Refer red To Contact Diagnoses Persistent atrial fibrillation (H) Ankur Smith MD [address] [place] [address] Referral ID Status Reason Start Date Expiration Date Visits Requ ested Visits Authorized [id number] Closed 07/07/2020 07/07/2021 1 1 (Routine) - Closed Specialty Diagnoses / Procedures Referred By Contact Refer red To Contact Diagnoses Persistent atrial fibrillation (H) Ankur Smith MD [address] [place] [address] Referral ID Status Reason Start Date Expiration Date Visits Requ ested Visits Authorized [id number] Closed 07/07/2020 07/07/2021 1 1 Reason for Visit Reason Comments Atrial Fib (Routine) - Closed Specialty Diagnoses / Procedures Referred By Contact Refer red To Contact Diagnoses Persistent atrial fibrillation (H) Ankur Smith MD [address] [place] [address] Referral ID Status Reason Start Date Expiration Date Visits Requ ested Visits Authorized [id number] Closed 06/25/2019 06/24/2020 1 1 Encounter Details Date Type Department Care Team Description 07/07/2020 Office Visit [facility] Ankur Smith MD Persistent atrial [facility] [address] fibrillati on (H) [place] [address] [address] [place], [place] [address] [address] [place], [place] (Work) [address] Social History Tobacco Use [...] scheduled for 1 year. cc: HANK Handley [place] [phone] ANKUR SMITH MD MT: CAITLYN Name: RADHA VILLA MRN: [id number] Account: [id number] : 1940 Service Date: 07/07/2020 Document: [id number] Ankur Smith - 07/07/2020 10:45 AM CDT HPI and Plan: See dictation Orders Placed This Encounter Procedures ??? Follow-Up with Business Taxes Specialist ??? Follow-Up with Cardiac Advanced Practice Provider [...] on phone: None Gets together: None Attends yazdanism service: None Active member of club or [...] MD [address] [place] [address] documented in this encounter Plan of Treatment Upcoming Encounters Date Type Specialty Care Team Description 08/31/2022 Appointment Respiratory Therapy Ankur Smith MD [address] [place] [phone] (Wo rk) 09/28/2022 Lab Lab 09/28/2022 Office Visit Cardiology Ankur Smith MD [address] [place] [phone] Trudi Grayson, FLACO CERAMIC DESIGNER [address] [id number] 11/16/2022 Ancillary Procedure Cardiology Ankur Smith MD [address] [place] [phone] (Wo rk) Scheduled Referrals Name Type Priority Associated Diagnoses Order S chedule Follow-Up with Referral Routine Persistent atrial Expected : Business Taxes Specialist fibrillation 03/29/20 (Approximate), Expires: 07/27/2022 Follow-Up with Cardiac Referral Routine Persistent atrial Expected: Advanced Practice Provider fibrillation 1 (Approximate), Expires: 11/19/2021 documented as of this encounter Visit Diagnoses Diagnosis Persistent atrial fibrillation (H) Atrial fibrillation documented in this encounter Care Teams Mobile Phlebotomist Relationship Specialty Start Date End Date Slava Hernandez PA-C PCP - General Physician Strong Nitric Operator 07/02/18 06/29/21 [facility] [address] [place] [address] documented as of this encounter
--- OUTSIDE RECORDS SUMMARY | 2022-08-22 06:54 | XMS_ITS | Encounter Summary ---
:1940 Author Organization [place] Address [address] [facility] [place] [address] Care Team Providers Name Role Phone Slava Hernandez PA-C Primary Care Provider Reason for Visit CV Testing (Routine) - Closed Specialty Diagnoses / Procedures Referred By Contact Refer red To Contact Diagnoses Cardiac pacemaker in situ Basil Guadalupe MD Procedures Cardiac Device Check - Remote [address] [place] [place] [address] Referral ID Status Reason Start Date Expiration Date Visits Requ ested Visits Authorized [id number] Closed 10/15/2019 10/14/2020 1 1 Encounter Details Date Type Department Care Team Description 01/27/2020 Ancillary Procedure [facility] Basil Guadalupe ardiac pacemaker in [facility] MD T[place]anda situ Heart Care [address] [facility] [address] [facility] [address] [place] [address] [place] [phone] [address] (Work) [phone] Social History Tobacco Use Types Packs/Day Years [...] [address] [place] 800215 (Wo rk) 09/28/2022 Lab Lab 09/28/2022 Office Visit Cardiology Timothy Smith MD [address] [place] [phone] Trudi Grayson APRN VACUUM EXTRACTOR OPERATOR [address] [place] [address] 11/16/2022 Ancillary Procedure Cardiology Timothy Smith MD [address] [place] 585965 (Wo rk) documented as of this encounter [...] Range Method Time At Signature Date Time [id number] [employer] Interrogation Session Implantable [place] [employer] Pulse Generator Frit Mixer And Burner Implantable L121 [place] EL [employer] Pulse Generator Model Implantable [id number] [employer] Pulse Generator Serial Number Type Remote [employer] Interrogation Session Clinic Name [facility] [employer] Implantable Pacemaker [employer] Pulse Generator Type Implantable [id number] [employer] Pulse Generator Implant Date Implantable Lead [facility] [facility] [employer] RAUL Frit Mixer And Burner Implantable Lead 2088TC Tendril MEDTRONI C Model STS Implantable Lead [id number] [employer] Serial Number Implantable Lead [id number] [employer] Implant Date Implantable Lead Bipolar Lead [employer] Polarity Type Implantable Lead UNKNOWN [employer] Location Detail 1 Implantable Lead Right Atrium [employer] Location Implantable Lead [employer] RAUL Frit Mixer And Burner Implantable Lead 2088TC Tendril MEDTRONI C Model STS Implantable Lead [id number] [employer] Serial Number Implantable Lead [id number] [employer] Implant Date Implantable Lead Bipolar Lead [...] [employer] Pacing Threshold Pulse Width Battery Date [id number] [employer] Time of Measurements Battery Status Beginning of [employer] Service Battery 144 mo [employer] Remaining Longevity Battery 100 % [employer] Remaining Percentage Brandon Statistic [id number] [employer] Date Time Start Brandon Statistic [id number] [employer] Date Time End Brandon Statistic 0 [...] [place] [employer] Statistic Vendor Type Category Episode [id number] [employer] Statistic Recent Date Time Start Episode [id number] [employer] Statistic Recent Date Time End Episode [id number] [employer] Statistic Recent Date Time Start Episode [id number] [employer] Statistic Recent Date Time End Episode [id number] [employer] Statistic Recent Date Time Start Episode [id number] [employer] Statistic Recent Date Time End Episode [id number] [employer] Statistic Recent Date Time Start Episode [id number] [employer] Statistic Recent Date Time End Episode APM-94 [employer] Identifier Episode Type Periodic EGM [employer] Category Episode Date [id number] [employer] Time Episode [id number] [employer] Identifier Episode Type Other [employer]IC Category Episode Date [id number] [employer] Time Episode V-1550 [employer] Identifier Episode Type [place] [employer] Category Episode Date [id number] [employer] Time Episode Duration 16 s MED[employer]IC Episode V-1549 [employer]IC Identifier Episode Type [place] [employer] Category Episode Date [id number] [employer] Time Episode Duration 26 s MEDTR[employer]IC Episode V-1548 [employer] Identifier Episode Type [place] [employer] Category Episode Date [id number] [employer]IC Time Episode Duration 28 s MEDTRONIC Episode V-1547 MED[employer]IC Identifier Episode Type VT [employer]IC Category Episode Date [id number] MED[employer]IC Time Episode Duration 12 s MEDTRONIC Episode V-1546 [employer] Identifier Episode Type [place] [employer]IC Category Episode Date [id number] [employer] Time Episode Duration 14 s MEDTRONIC Episode V-1545 MED[employer]IC Identifier Episode Type [place] [employer]IC Category Episode Date [id number] [employer] Time Episode Duration 21 s MEDTRONIC Episode V-1544 [employer]IC Identifier Episode Type [place] [employer] Category Episode Date [id number] [employer]IC Time Episode Duration 14 s MEDTR[employer]IC Episode V-1543 [employer]IC Identifier Episode Type [place] [employer]IC Category Episode Date [id number] [employer]IC Time Episode Duration 37 s MEDTRONIC Episode V-1542 [employer]IC Identifier Episode Type [place] [employer]IC Category Episode Date [id number] [employer] Time Episode Duration 14 s MED[employer]IC Episode V-1541 [employer] Identifier Episode Type [place] [employer] Category Episode Date [id number] [employer] Time Episode Duration 23 s [employer] Anatomical Region Laterality Modality Other Specimen (Source) Anatomical Collection Method Collection Time Re ceived Time Location / / Volume Laterality 01/27/2020 12:41 AM CDT Narrative 02/10/2020 3:26 PM CDT [employer] [place] (S) Remote PPM Device Check OPTICAL ENGINEERING MANAGER: 35%, Chronic AFib, taking Eliquis Mode: VVIR Presenting Rhythm: OPTICAL ENGINEERING MANAGER Heart Rate: adequate heart rates per his [...] situ documented in this encounter Care Teams Manager Utilization Relationship Specialty Start Date End Date lSava Hernandez, PAIlanaC PCP - General Physician Entry Level Paralegal 07/02/18 06/29/21 [facility] [address] [place] [address] documented as of this encounter
--- OUTSIDE RECORDS SUMMARY | 2022-08-22 06:54 | XMS_ITS | Encounter Summary ---
:1940 Author Organization [place] Address [facility] [place] [address] Care Team Providers Name Role Phone Leeroymekhi Slava Estrella PA-C Primary Care Provider Timothy Smith MD Unavailable Reason for Visit Reason Onset Date Comments Refill Request 08/25/2020 Eliquis Encounter Details Date Type Department Care Team Description 08/25/2020 Refill [facility] Heart Zarina Smith MD Refill Request (Eliquis) [facility] [place] [address] [place] [id number] [address] [place] [address] [place] [phone] Social History Tobacco Use Types Packs/Day Years [...] Respiratory Therapy Timothy Smith MD [address] [place] [phone] (Wo rk) 09/28/2022 Lab Lab 09/28/2022 Office Visit Cardiology Timothy Smith MD [address] [place] [address] Trudi Grayson APRN CARBIDE GRINDER [address] [address] 11/16/2022 Ancillary Procedure Cardiology Timothy Smith MD [address] [place] [address] (Wo rk) documented as of this encounter Visit Diagnoses Diagnosis Paroxysmal atrial fibrillation (H) Atrial fibrillation documented in this encounter Care Teams Hob Machine Operator Relationship Specialty Start Date End Date Slava Hernandez, PCP - General Physician Attic Fans Mechanic 07/02/1806/02 PA-C [facility] [address] [place] [address] Timothy Smith MD Assigned Heart and 07/23/20 [address] Vascular Provider [address] [place] [address]957[address] documented as of this encounter
--- OUTSIDE RECORDS SUMMARY | 2022-08-22 06:54 | XMS_ITS | Encounter Summary ---
:1940 Author Organization [place] Address [address] [facility] [place] [address] Care Team Providers Name Role Phone Leeroymekhi Slava Estrella PA-C Primary Care Provider Timothy Smith MD Unavailable Reason for Visit Reason Onset Date Comments Prior Auth - Medication 11/04/2020 (ELIQUIS) 5 MG t ablet COST TIER EXPECTION - Denied Encounter Details Date Type Department Care Team Description 11/04/2020 Telephone [facility] Heart Zarina Smith MD Prior Auth - Medication Clinic [place] [address] [facility] [address] ((ELIQUIS) 5 MG tablet [address] COST TIER EXPECTION - [facility] [address] [place] [address] Denied) [place] [address] Social History Tobacco Use Types Packs/Day [...] nurse for a prescription of Eliquis. JNelosnRN UNT INSTALLER Telephone Encounter - Claire Harvey - 11/05/2020 11:59 AM CST Images from the original note were not included. PRIOR AUTHORIZATION DENIED-Tiering Exception Medication: (ELIQUIS) 5 MG tablet COST TIER EXPECTION - Denied Denial Date: 11/04/2020 Denial Rational: Appeal Information: UNT INSTALLER Telephone Encounter - Monica Nguyen - 11/04/2020 4:11 PM CST Images from the original note were not included. PA Initiation Medication: (ELIQUIS) 5 MG tablet COST TIER EXPECTION - Insurance Company: [employer] - Pharmacy Filling the Rx: [facility] [address] [place] [phone] [facility] Filling Pharmacy Filling Pharmacy Start Date: 11/04/2020 UNT INSTALLER Telephone Encounter - Viola Arcos - 11/04/2020 2:31 PM CST Prior Authorization Retail Medication Request Medication/Dose: apixaban ANTICOAGULANT (ELIQUIS) 5 MG tablet COST TIER EXPECTION ICD code (if different than what is on RX): Previously Tried and Failed: Rationale: Insurance Name: Ayi Laile Insurance ID: Pharmacy Information (if different than what is on RX) Name: Phone: Patient called in stating the medication is too expensive and is over $500. He cannot afford medication. UNT INSTALLER documented in this encounter Plan of Treatment Upcoming Encounters Date Type Specialty Care Team Description 08/31/2022 Appointment Respiratory Therapy Timothy Smith MD [address] [place] [address] (Wo rk) 09/28/2022 Lab Lab 09/28/2022 Office Visit Cardiology Timothy Smith MD [address] [place] [address] Trudi Grayson APRN CLERICAL ADJUSTER [address] [place] [phone] 11/16/2022 Ancillary Procedure Cardiology Timothy Smith MD [address] [place] [phone] (Wo rk) documented as of this encounter Visit Diagnoses Not on filedocumented in this encounter Care Teams Agricultural Crop Farm Manager Relationship Specialty Start Date End Date Slava Hernandez, PCP - General Physician Rn Child 07/02/1806/02 PA-C [facility] [address] [place], [place] [id number] Timothy Smith MD Assigned Heart and 07/23/20 [address] Vascular Provider [address] [place] [phone] documented as of this encounter
--- OUTSIDE RECORDS SUMMARY | 2022-08-22 06:54 | XMS_ITS | Encounter Summary ---
:1940 Author Organization [place] Address [address] [place] [address] Care Team Providers Name Role Phone Mary Slava Estrella PA-C Primary Care Provider Reason for Visit Reason Onset Date Comments Prior Auth - Medication 07/17/2019 Eliquis 5 MG tab let (Tier Exception) - DENIED Encounter Details Date Type Department Care Team Description 07/17/2019 Telephone [facility] Heart Zarina Smith MD Prior Auth - Medication Clinic [place] [address] (Eliquis 5 MG tablet [address] [facility] [address] [facility] [address] (Tier Exception) - [facility] [address] [place] [address] DENIED) [place] [phone] Social History Tobacco Use Types Packs/Day Years [...] eliquis will be $45 for 30 days. PEngler, RN Telephone Encounter - Monica Nguyen - 07/23/2019 2:45 PM CDT Images from the original note were not included. PRIOR AUTHORIZATION DENIED Medication: Eliquis 5 MG tablet (Tier Exception) - DENIED Denial Date: 07/20/2019 Denial Rational: Appeal Information: Please advise if appeal is necessary and place a letter of medical necessity under the letters tab in patient's chart and route back to [facility] PA MED [[id number]] Telephone Encounter - Lacy [place], SIENNA - 07/21/2019 3:44 PM CDT Pt called as he is almost out of Eliquis and that cost it now~$400. Pt is most likely in the donut hole. A PA was started by someone outside of this clinic. Did explain to pt that this may be Denied aspt is in the coverage gap (donut hole). Have place one month of samples for pt to pickup driver in [place]. Will watch for PA results. JNelsonRN Telephone Encounter - Monica Nguyen - 07/18/2019 10:52 AM CDT Images from the original note were not included. PA Initiation Medication: Eliquis 5 MG tablet (Tier Exception) - Insurance Company: Medicare Blue - Pharmacy Filling the Rx[facility] - [place], [place] - [address] AT [address] TO [facility] Filling Pharmacy Filling Pharmacy Start Date: 07/18/2019 Telephone Encounter - Ron Fontaine - 07/17/2019 8:30 AM CDT Prior Authorization Retail Medication Request Medication/Dose: apixaban ANTICOAGULANT (ELIQUIS) 5 MG tablet- (TIER EXCEPTION) ICD Code: Paroxysmal atrial fibrillation (H) (I48.0) Insurance Name: BRENNAN Shannon/ [employer] Medicare Blue RX BIN: [id number] PCN: MEDDADV ID: [id number] RX GROUP: [id number] Pharmacy Information: Name Pharmacy: [facility] - [place] [address] Portal to Registered [facility] Sites documented in this encounter Plan of Treatment Upcoming Encounters Date Type Specialty Care Team Description 08/31/2022 Appointment Respiratory Therapy Timothy Smith MD [address] [place] [address] (Wo rk) 09/28/2022 Lab Lab 09/28/2022 Office Visit Cardiology Timothy Smith MD [address] [place] [address] Trudi Grayson APRN FELT CHECKER [address] [address] 11/16/2022 Ancillary Procedure Cardiology Timothy Smith MD [address] [place] [address] (Wo rk) documented as of this encounter Visit Diagnoses Not on filedocumented in this encounter Care Teams Biofuels Plant Construction Worker Relationship Specialty Start Date End Date Slava Hernandez PA-C PCP - General Physician Rotary Adjuster 07/02/18 06/29/21 [facility] [address] [place] [address] documented as of this encounter
--- OUTSIDE RECORDS SUMMARY | 2022-08-22 06:54 | XMS_ITS | Encounter Summary ---
:1940 Author Organization [place] Address [facility] [place] [address] Care Team Providers Name Role Phone Slava Hernandez PA-C Primary Care Provider Reason for Visit Reason Onset Date Comments Refill Request 07/11/2019 Eliquis Encounter Details Date Type Department Care Team Description 07/11/2019 Refill [facility] Heart Zarina Smith MD Refill Request (Eliquis) Clinic [place] [address] [place] [phone] [place] [address] [place] [phone] Social History Tobacco Use Types Packs/Day Years [...] Respiratory Therapy Timothy Smith MD [address] [place] [phone] (Wo rk) 09/28/2022 Lab Lab 09/28/2022 Office Visit Cardiology Timothy Smith MD [address] [place] [phone] Trudi Grayson APRN CLINICAL OPERATIONS LEADER [address] [place] [address] 11/16/2022 Ancillary Procedure Cardiology Timothy Smith MD [address] [place] [phone] (Wo rk) documented as of this encounter Visit Diagnoses Diagnosis Paroxysmal atrial fibrillation (H) Atrial fibrillation documented in this encounter Care Teams Fabricator Foam Rubber Relationship Specialty Start Date End Date Slava Hernandez PA-C PCP - General Physician Roundhouse Firer/Fireman 07/02/18 06/29/21 [facility] [address] [place] [address] documented as of this encounter
--- OUTSIDE RECORDS SUMMARY | 2022-08-22 06:54 | XMS_ITS | Encounter Summary ---
:1940 Author Organization [place] Address [address] [facility] [place] [address] Care Team Providers Name Role Phone Slava Hernandez PA-C Primary Care Provider Timothy Smith MD Unavailable Reason for Visit Reason Onset Date Comments Refill Request 08/30/2020 bridge to mail order !! Encounter Details Date Type Department Care Team Description 08/30/2020 Refill [facility] Heart Zarina Smith MD Refill Request ([facility] [place] [address] to mail order!!) [address] [place] [address] [place] [address] [phone] Social History Tobacco Use Types Packs/Day Years [...] Respiratory Therapy Timothy Smith MD [address] [place] [address] (Wo rk) 09/28/2022 Lab Lab 09/28/2022 Office Visit Cardiology Timothy Smith MD [address] [place] [phone] Trudi Grayson, FLACO DULL COAT MILL OPERATOR [address] [phone] 11/16/2022 Ancillary Procedure Cardiology Timothy Smith MD [address] [place] [phone] (Wo rk) documented as of this encounter Visit Diagnoses Diagnosis Paroxysmal atrial fibrillation (H) Atrial fibrillation documented in this encounter Care Teams Regional Marketing Director Relationship Specialty Start Date End Date Slava Hernandez, PCP - General Physician Paint Supervisor 07/02/1806/02 PA-C [facility] [address] [place] [address] Timothy Smith MD Assigned Heart and 07/23/20 [address] Vascular Provider [address] [place] [address] documented as of this encounter
--- OUTSIDE RECORDS SUMMARY | 2022-08-22 06:54 | XMS_ITS | Encounter Summary ---
:1940 Author Organization [place] Address [address] [facility] [place] [address] Care Team Providers Name Role Phone Slava Hernandez PA-C Primary Care Provider Reason for Referral (Routine) - Closed Specialty Diagnoses / Procedures Referred By Contact Refer red To Contact Diagnoses Persistent atrial fibrillation (H) Cardiac pacemaker in situ Elda [place] APRN CNP [address] [place] [address] Referral ID Status Reason Start Date Expiration Date Visits Requ ested Visits Authorized [id number] Closed 01/20/2020 01/19/2021 1 1 Reason for Visit Reason Onset Date Comments Atrial Fib 01/20/2020 (Routine) - Closed Specialty Diagnoses / Procedures Referred By Contact Refer red To Contact Diagnoses Persistent atrial fibrillation (H) Timothy Smith MD [address] [place] [address] Referral ID Status Reason Start Date Expiration Date Visits Requ ested Visits Authorized [id number] Closed 06/25/2019 06/24/2020 1 1 Encounter Details Date Type Department Care Team Description 01/20/2020 Virtual Visit [facility] Elda Johnson atrial fibrillation (Primary Dx); Heart Clinic [place] APRN CNP Cardiac pacemaker in situ; [address] [facility] [address] [facility] Paroxysmal atrial fibrillation (H) South [address] [place] [address] [place] [address] [phone] Social History Tobacco Use Types Packs/Day Years [...] this encounter Progress Notes Elda Johnson APRN COLLECTIONS PROFESSIONAL - 01/20/2020 9:30 AM CDT Haris Villa [...] invitation sent by: Text to cell phone: [phone] Doximity Video Start Time: 9:30 am Additional [...] (diabetes, CAD, age++) 3. Sinus node dysfunction??s/p??dual-chamber [employer] pacemaker 01/2016. 4. Coronary disease??s/p 4v CABG (1986) - ??VG -OM, VG-RCA, VG-LAD and VG- Diagonal at that time. Angiogram 01/2016 showed patent VGs 5. Cardiomyopathy?? 6. RBBB 7. Obstructive sleep apnea 8. type 2 diabetes 9. obesity Diagnostics: ?? Device check (10/2019) revealed A-paced <1% LABORER/GRADE CHECK: 61 % Stable leads. Battery life 9 [...] adverse side effects and Financial programs through [employer]. ?? Coronary artery disease. Patient had??a CABG [...] Dr. Smith and encouraged pt to seek [employer]'s financial assistance for Eliquis ?? Patient expresses understanding and agreement with the plan. ?? I appreciate the chance to help with Haris Villa Please let me know if you have any questions or concerns. ?? Elda Johnson APRN, AQUILINO Video-Visit Details Type of service: Video Visit Video End Time (time video stopped): 9:40 Originating Location (pt. Location): Home Distant Location (provider location): [facility] Mode of Communication: Video Conference via Glide Elda [place] APRN CNP documented in this encounter Plan of Treatment Upcoming Encounters Date Type Specialty Care Team Description 08/31/2022 Appointment Respiratory Therapy Timothy Smith MD [address] [place] [address] (Wo rk) 09/28/2022 Lab Lab 09/28/2022 Office Visit Cardiology Timothy Smith MD [address] [place] [address] Trudi Grayson APRN COLLECTIONS PROFESSIONAL [address] [place] [address] 11/16/2022 Ancillary Procedure Cardiology Timothy Smith MD [address] [place] [phone] (Wo rk) Scheduled Referrals Name Type Priority Associated Diagnoses Order S chedule Follow-Up with Referral Routine Persistent atrial Expected : Folded Towel Machine Operator fibrillation 07/21/2020 Cardiac pacemaker in (Approx imate), situ Expires: 01/19/2021 documented as of this encounter Visit Diagnoses Diagnosis Persistent atrial fibrillation (H) - [place] Atrial fibrillation Cardiac pacemaker in situ Paroxysmal atrial fibrillation (H) Atrial fibrillation documented in this encounter Care Teams Gas Or Water Meter Installer Relationship Specialty Start Date End Date Slava Hernandez, PAIlanaC PCP - General Physician Conservation Worker 07/02/18 06/29/21 [facility] [address] [place] [address] documented as of this encounter
--- OUTSIDE RECORDS SUMMARY | 2022-08-22 06:54 | XMS_ITS | Encounter Summary ---
:1940 Author Organization [place] Address [address] [facility] [place] [address] Care Team Providers Name Role Phone Slava [...] [address] [place] [address] (Wo rk) 09/28/2022 Lab Lab 09/28/2022 Office Visit Cardiology Timothy Smith MD [address] [place] [address] Trudi Grayson APRN COMPUTER VIDEO GAME DESIGNER [address] [address] 11/16/2022 Ancillary Procedure Cardiology Timothy Smith MD [address] [place] [address] (Wo rk) documented as of this encounter Visit Diagnoses Not on filedocumented in this encounter Care Teams Interventional Tech Relationship Specialty Start Date End Date Slava Hernandez PA-C PCP - General Physician Rafter Cutting Machine Operator 07/02/18 06/29/21 [facility] [address] [place] [address] documented as of this encounter
--- OUTSIDE RECORDS SUMMARY | 2022-08-22 06:54 | XMS_ITS | Encounter Summary ---
:1940 Author Organization [place] Address [address] [facility] [place] [address] Care Team Providers Name Role Phone Slava Hernandez PA-C Primary Care Provider Reason for Referral CV Testing (Routine) - Closed Specialty Diagnoses / Procedures Referred By Contact Refer red To Contact Diagnoses Cardiac pacemaker in situ [facility] Cv Cardiac Services Procedures Cardiac Device Check - In Clinic [address] [facility] [address] [place] [phone] Referral ID Status Reason Start Date Expiration Date Visits Requ ested Visits Authorized [id number] Closed 06/25/2019 06/24/2020 1 1 Encounter Details Date Type Department Care Team Description 06/25/2019 [facility] Sary Riojas Cardi ac pacemaker in [facility] situ (Ria jing Dx) Heart Care [address] [facility] [address] [place] [phone] Social [...] Appointment Respiratory Therapy Timothy Smith MD [address] [facility] [address] [place] [phone] (Wo rk) 09/28/2022 Lab Lab 09/28/2022 Office Visit Cardiology Timothy Smith MD [address] [place] [phone] Trudi Grayson, GRAIN HANDLER ART GILDER [address] [place] [phone] 11/16/2022 Ancillary Procedure Cardiology Timothy Smith MD [address] [place] [phone] (Wo rk) documented as of this encounter Results PM DEVICE PROGRAMMING EVAL, DUAL LEAD PACER (10/15/2019 9:24 AM CAREER SERVICES REPRESENTATIVE) Component Value Ref Test Analysis Performed Pathologis t Range Method Time At Signature Date Time [id number] [employer] Interrogation Session Implantable [employer] Pulse Generator Master Ship Implantable L121 ESSENTIO EL [employer] Pulse Generator Model Implantable [id number] [employer] Pulse Generator Serial Number Type In Clinic [employer] Interrogation Session Clinic Name [facility] [employer] Implantable Pacemaker [employer] Pulse Generator Type Implantable [id number] [employer] Pulse Generator Implant Date Implantable Lead [facility] [employer] RAUL Master Ship Implantable Lead 8TC Tendril MEDTRONI C Model STS Implantable Lead [id number] [employer] Serial Number Implantable Lead [id number] [employer] Implant Date Implantable Lead Bipolar Lead [employer] Polarity Type Implantable Lead UNKNOWN [employer] Location Detail 1 Implantable Lead Right Atrium [employer] Location Implantable Lead [facility] [employer] RAUL Master Ship Implantable Lead 8TC Tendril MEDTRONI C Model STS Implantable Lead [id number] [employer] Serial Number Implantable Lead [id number] MED[employer]IC [...] NSVT [employer] Statistic Vendor Type Category Episode [id number] [employer] Statistic Total Date Time End Episode 97 [employer] Statistic Recent Count Episode VT [employer] Statistic Type Category Episode NSVT [employer] Statistic Vendor Type Category Episode [id number] [employer] Statistic Recent Date Time Start Episode [id number] [employer] Statistic Recent Date Time End Anatomical Region Laterality Modality Other Specimen (Source) Anatomical Collection Method Collection Time Re ceived Time Location / / Volume Laterality 10/15/2019 3:46 PM CAREER SERVICES REPRESENTATIVE Narrative 10/16/2019 10:41 AM CAREER SERVICES REPRESENTATIVE [employer] Accolade (D) Pacemaker Device Check AP: <1 ?% ?? SYSTEMS ADMIN: 61 % ?? Mode: VVIR 60-130 (was [...] situ documented in this encounter Care Teams Automobile Service Station Mechanic Relationship Specialty Start Date End Date Slava Hernandez PA-C PCP - General Physician Hazardous Waste Material Technician 07/02/18 06/29/21 [facility] [address] [place] [address] documented as of this encounter
--- OUTSIDE RECORDS SUMMARY | 2022-08-22 06:54 | XMS_ITS | Encounter Summary ---
:1940 Author Organization [place] Address [facility] [place] [address] Care Team Providers Name Role Phone Slava Hernandez PA-C Primary Care Provider Timothy Smith MD Unavailable Reason for Visit Reason Comments Medication Refill Encounter Details Date Type Department Care Team Description 09/24/2020 Refill [facility] Shea Rivera PA-C Medication Refill Clinic [place] [address] [place] [address] [place] [address] [place] [phone] Social History Tobacco Use Types Packs/Day Years Used Date Smoking Tobacco: Never Smokeless Tobacco: Never Alcohol Use Standard Drinks/Week Comments No 0 (1 standard drink = 0.6 oz pure alcoho l) Sex Assigned at Date Recorded Not on file documented as of this encounter Plan of Treatment Upcoming Encounters Date Type Specialty Care Team Description 08/31/2022 Appointment Respiratory Therapy Timothy Smith MD [address] [place] [phone] (Wo rk) 09/28/2022 Lab Lab 09/28/2022 Office Visit Cardiology Timothy Smith MD [address] [place] [phone] Trudi Grayson APRN ASSISTANT DIRECTOR [address] [address] 11/16/2022 Ancillary Procedure Cardiology Timothy Smith MD [address] [place] [address] (Wo rk) documented as of this encounter Visit Diagnoses Diagnosis Urinary frequency Weak urinary stream Slowing of urinary stream documented in this encounter Care Teams Egg Processor Relationship Specialty Start Date End Date Slava Hernandez, PCP - General Physician Bus Attendant 07/02/1806/02 PA-C [facility] [address] [place] [address] Timothy Smith MD Assigned Heart and 07/23/20 [address] Vascular Provider [address] [place] [phone] documented as of this encounter
--- OUTSIDE RECORDS SUMMARY | 2022-08-22 06:54 | XMS_ITS | Encounter Summary ---
:1940 Author Organization [place] Address [address] [facility] [place] [address] Care Team Providers Name Role Phone Slava Hernandez PA-C Primary Care Provider Timothy Smith MD Unavailable Reason for Visit Reason Onset Date Comments Refill Request 11/10/2020 Eliquis Encounter Details Date Type Department Care Team Description 11/10/2020 Refill [facility] Sintia Muhammad Refi ll Request (Eliquis) [facility] Heart RN Care [address] [place] [phone] Social History Tobacco Use Types Packs/Day [...] like a prescription sent in to the [facility] mail order pharmacy. Spoke with Dr. Smith who stated that he would recommend patient resume the Eliquis 5mg BID. Prescription for Eliquis 5mg BID sent into [facility] mail order pharmacy per patient request. Pt called and updated and verbalized understanding and agreement with plan. SIENNA Hatch ER STRAIGHTENER documented in this encounter Plan of Treatment Upcoming Encounters Date Type Specialty Care Team Description 08/31/2022 Appointment Respiratory Therapy Timothy Smith MD [address] [place] [address] (Wo rk) 09/28/2022 Lab Lab 09/28/2022 Office Visit Cardiology Timothy Smith MD [address] [place] [address] Trudi Grayson APRN SEASONAL TAX PREPARER [address] [address] 11/16/2022 Ancillary Procedure Cardiology Timothy Smith MD [address] [place] [address] (Wo rk) documented as of this encounter Visit Diagnoses Diagnosis Atrial flutter (H) - Primary Atrial flutter A-fib (H) Atrial fibrillation documented in this encounter Care Teams [address] Emergency Services Dispatcher Relationship Specialty Start Date End Date Slava Hernandez, PCP - General Physician Management Professor 07/02/1806/02 PA-C [facility] [address] [place] [address] Timothy Smith MD Assigned Heart and 07/23/20 [address] Vascular Provider [address] [place] [address] documented as of this encounter
--- OUTSIDE RECORDS SUMMARY | 2022-08-22 06:54 | XMS_ITS | Encounter Summary ---
:1940 Author Organization [place] Address [facility] [place] [address] Care Team Providers Name Role Phone Slava Hernandez PA-C Primary Care Provider Reason for Visit Reason Onset Date Comments Refill Request 02/24/2020 SL NTG Encounter Details Date Type Department Care Team Description 02/24/2020 Refill [facility] Heart [place] Refill Request (SL NTG) Clinic Patt Torres PA-C [address] [facility] [address] [facility] [address] [place] [phone] [place] [phone] (Wo rk) Social History Tobacco Use Types [...] Respiratory Therapy Timothy Smith MD [address] [place] [phone] (Wo rk) 09/28/2022 Lab Lab 09/28/2022 Office Visit Cardiology Timothy Smith MD [address] [place] [phone] Trudi Grayson APRN CNP [address] 164645 11/16/2022 Ancillary Procedure Cardiology Timothy Smith MD [address] [place] [phone] (Wo rk) documented as of this encounter Visit Diagnoses Diagnosis Coronary artery disease involving [place] coronary artery of [place] heart without angina pectoris documented in this encounter Care Teams Insurance Examining Clerk Relationship Specialty Start Date End Date Slava Hernandez PAIlanaC PCP - General Physician Patient Transportation Driver 07/02/18 06/29/[address] [address] documented as of this encounter
--- OUTSIDE RECORDS SUMMARY | 2022-08-22 06:54 | XMS_ITS | Encounter Summary ---
:1940 Author Organization [place] Address [address] [facility] [place] [address] Care Team Providers Name Role Phone Slava Hernandez PA-C Primary Care Provider Reason for Visit CV Testing (Routine) - Closed Specialty Diagnoses / Procedures Referred By Contact Refer red To Contact Diagnoses Cardiac pacemaker in situ Basil Guadalupe MD Procedures Cardiac Device Check - Remote [address] [place] [address] [place] [address] Referral ID Status Reason Start Date Expiration Date Visits Requ ested Visits Authorized [id number] Closed 01/27/2020 01/26/2021 1 1 Encounter Details Date Type Department Care Team Description 05/04/2020 Ancillary Procedure [facility] Basil Guadalupe ardiac pacemaker in [facility] MD [place] situ Heart Care [address] [facility] [address] [facility] [address] [place] [address] [place] [phone] (Work) [phone] Social History Tobacco Use Types Packs/Day Years Used Date Smoking Tobacco: Never Smokeless Tobacco: Never Alcohol Use Standard Drinks/Week Comments No 0 (1 standard drink = 0.6 oz pure alcoho l) Sex Assigned at Date Recorded Not on file documented as of this encounter Plan of Treatment Upcoming Encounters Date Type Specialty Care Team Description 08/31/2022 Appointment Respiratory Therapy Timothy Smith MD [address] [place] [phone] (Wo rk) 09/28/2022 Lab Lab 09/28/2022 Office Visit Cardiology Timothy Smith MD [address] [place] [phone] Trudi Grayson APRN VICE PRESIDENT PRECISION MARKET INSIGHTS [address] [place] 800455 11/16/2022 Ancillary Procedure Cardiology Timothy Smith MD [address] [place] [phone] (Wo rk) documented as of this encounter [...] Range Method Time At Signature Date Time [id number] MEDTRONIC Interrogation Session Implantable [employer] MEDTRONIC Pulse Generator Folder Machine Operator Implantable L121 ESSENTIO EL MEDTRONIC Pulse Generator Model Implantable [id number] MEDTRONIC Pulse Generator Serial Number Type Remote MEDTRONIC Interrogation Session Clinic Name [facility] MEDTRONIC Implantable Pacemaker MEDTRONIC Pulse Generator Type Implantable [id number] MEDTRONIC Pulse Generator Implant Date Implantable Lead [facility] MEDTRO RAUL Folder Machine Operator Implantable Lead 2087TC Tendril MEDTRONI C Model STS Implantable Lead [id number] MEDTRONIC Serial Number Implantable Lead [id number] MEDTRONIC Implant Date Implantable Lead Bipolar Lead MEDTRONIC Polarity Type Implantable Lead UNKNOWN MEDTRONIC Location Detail 1 Implantable Lead Right Atrium MEDTRONIC Location Implantable Lead [facility] MEDTRO RAUL Folder Machine Operator Implantable Lead 2087TC Tendril MEDTRONI C Model STS Implantable Lead [id number] MEDTRONIC Serial Number Implantable Lead [id number] MEDTRONIC [...] 100 % MEDTRONIC Remaining Percentage Brandon Statistic [id number] MEDTRONIC Date Time Start Brandon Statistic [id number] MEDTRONIC Date Time End Brandon Statistic 0 [...] [place] MEDTRONIC Statistic Vendor Type Category Episode [id number] MEDTRONIC Statistic Recent Date Time Start Episode [id number] MEDTRONIC Statistic Recent Date Time End Episode [id number] MEDTRONIC Statistic Recent Date Time Start Episode [id number] MEDTRONIC Statistic Recent Date Time End Episode [id number] MEDTRONIC Statistic Recent Date Time Start Episode [id number] MEDTRONIC Statistic Recent Date Time End Episode [id number] MEDTRONIC Statistic Recent Date Time Start Episode [id number] MEDTRONIC Statistic Recent Date Time End Episode APM-95 MEDTRONIC Identifier Episode Type Periodic EGM MEDTRONIC Category Episode Date [id number] MEDTRONIC Time Episode [id number]-[id number] MEDTRONIC Identifier Episode Type Other MEDTRONIC Category Episode Date [id number] MEDTRONIC Time Episode V-1554 MEDTRONIC Identifier Episode Type [place] MEDTRONIC Category Episode Date [id number] MEDTRONIC Time Episode Duration 13 s MEDTRONIC Episode V-1553 MEDTRONIC Identifier Episode Type [place] MEDTRONIC Category Episode Date [id number] MEDTRONIC Time Episode Duration 18 s MEDTRONIC Episode V-1552 MEDTRONIC Identifier Episode Type [place] MEDTRONIC Category Episode Date [id number] MEDTRONIC Time Episode Duration 14 s MEDTRONIC Episode V-1551 MEDTRONIC Identifier Episode Type [place] MEDTRONIC Category Episode Date [id number] MEDTRONIC Time Episode Duration 13 s MEDTRONIC Anatomical Region Laterality Modality Other Specimen (Source) Anatomical Collection Method Collection Time Re ceived Time Location / / Volume Laterality 05/04/2020 12:41 AM CDT Narrative 05/05/2020 5:21 PM CDT [facility] Essentio (S) Remote PPM Device Check 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
--- OUTSIDE RECORDS SUMMARY | 2022-08-22 06:54 | XMS_ITS | Encounter Summary ---
:1940 Author Organization [place] Address [address] [facility] [place] [address] Care Team Providers Name Role Phone Leeroymekhi Slava Estrella PA-C Primary Care Provider Timothy Smith MD Unavailable Reason for Visit Reason Onset Date Comments Refill Request 08/30/2020 mail order refill se 08-25-2020-[facility] claims they dont have it----re sent Encounter Details Date Type Department Care Team Description 08/30/2020 Refill [facility] Heart Zarina Smith MD Refill Request (mail Clinic [facility]att [address] order refill sent [address] [facility] [address] 08-25-2020-[facility] claims [address] [place] [address] they dont have it----re [place] [phone] sent) [phone] Social History Tobacco Use Types Packs/Day Years Used Date Smoking Tobacco: Never Smokeless Tobacco: Never Alcohol Use Standard Drinks/Week Comments No 0 (1 standard drink = 0.6 oz pure alcoho l) Sex Assigned at Date Recorded Not on file documented as of this encounter Plan of Treatment Upcoming Encounters Date Type Specialty Care Team Description 08/31/2022 Appointment Respiratory Therapy Timothy Smith MD [address] [place] [phone] (Wo rk) 09/28/2022 Lab Lab 09/28/2022 Office Visit Cardiology Timothy Smith MD [address] [place] [phone] Trudi Grayson, FLACO INSIDE SALES ENGINEER [address] 138325 11/16/2022 Ancillary Procedure Cardiology Timothy Smith MD [address] [place] [phone] (Wo rk) documented as of this encounter Visit Diagnoses Diagnosis Paroxysmal atrial fibrillation (H) Atrial fibrillation documented in this encounter Care Teams Manufacturing Plant Manager Relationship Specialty Start Date End Date Slava Hernandez, PCP - General Physician Utilization Management Um Nurse 07/02/1806/02 PA-C [facility] [address] [place], [place] [phone] Timothy Smith MD Assigned Heart and 07/23/20 [address] Vascular Provider [address] [place] [phone] documented as of this encounter
--- OUTSIDE RECORDS SUMMARY | 2022-08-22 06:54 | XMS_ITS | Encounter Summary ---
:1940 Author Organization [place] Address [address] [place] [address] Care Team Providers Name Role Phone Slava [...] [address] [place] [phone] (Wo rk) 09/28/2022 Lab Lab 09/28/2022 Office Visit Cardiology Timothy Smith MD [address] [place] [address] Trudi Grayson APRN CASHIER OFFICE [address] [address] 11/16/2022 Ancillary Procedure Cardiology Timothy Smith MD [address] [place] [address] (Wo rk) documented as of this encounter Visit Diagnoses Not on filedocumented in this encounter Care Teams Harnessmaker Relationship Specialty Start Date End Date Slava Hernandez PA-C PCP - General Physician Chronometer Assembler 07/02/18 06/29/21 [facility] [address] [place], [place] [phone] documented as of this encounter
--- OUTSIDE RECORDS SUMMARY | 2022-08-22 06:54 | XMS_ITS | Encounter Summary ---
:1940 Author Organization [place] Address [address] [facility] [place] [address] Care Team Providers Name Role Phone Mary Slava Estrella PA-C Primary Care Provider Reason for Visit Reason Onset Date Comments Refill Request 10/15/2019 send eliquis to mail order pharmacy-I gave him samples to PU as he has not bee n taking due to cost Encounter Details Date Type Department Care Team Description 10/15/2019 Refill [facility] Heart Zarina Smith MD Refill Request (send [facility] [place] [address] eliquis to mail order [address] [facility] [address] pharmacy-I gave him [address] [place] [address] samples to PU as he has [place] [phone] not been taking due to [phone] cost) Social History Tobacco Use Types Packs/Day Years Used Date Smoking Tobacco: Never Smokeless Tobacco: Never Alcohol Use Standard Drinks/Week Comments No 0 (1 standard drink = 0.6 oz pure alcoho l) Sex Assigned at Date Recorded Not on file documented as of this encounter Plan of Treatment Upcoming Encounters Date Type Specialty Care Team Description 08/31/2022 Appointment Respiratory Therapy Timothy Smith MD [address] [place] [phone] (Wo rk) 09/28/2022 Lab Lab 09/28/2022 Office Visit Cardiology Timothy Smith MD [address] [place] [address] Trudi Grayson APRN CNP [address] [address] 11/16/2022 Ancillary Procedure Cardiology Timothy Smith MD [address] [place] [phone] (Wo rk) documented as of this encounter Visit Diagnoses Diagnosis Paroxysmal atrial fibrillation (H) Atrial fibrillation documented in this encounter Care Teams Accounts Payable Professional Relationship Specialty Start Date End Date Slava Hernandez PA-C PCP - General Physician Technology Instructor 07/02/18 06/29/21 [facility] [address] [place] [address] documented as of this encounter
--- OUTSIDE RECORDS SUMMARY | 2022-08-22 06:54 | XMS_ITS | Encounter Summary ---
:1940 Author Organization [place] Address [address] [facility] [address] Care Team Providers Name Role Phone Slava [...] [address] [place] [address] (Wo rk) 09/28/2022 Lab Lab 09/28/2022 Office Visit Cardiology Tiomthy Smith MD [address] [place] [address] Trudi Grayson APRN LABORATORY COURIER [address] [address] 11/16/2022 Ancillary Procedure Cardiology Timothy Smith MD [address] [place] [address] (Wo rk) documented as of this encounter Visit Diagnoses Not on filedocumented in this encounter Care Teams Physical Fitness Trainer Relationship Specialty Start Date End Date Slava Hernandez PA-C PCP - General Physician Production Cost Estimator 07/02/18 06/29/21 [facility] [address] [place] [address] documented as of this encounter
--- OUTSIDE RECORDS SUMMARY | 2022-08-22 06:54 | XMS_ITS | Encounter Summary ---
:1940 Author Organization [place] Address [facility] [place] [address] Care Team Providers Name Role Phone Slava Hernandez PA-C Primary Care Provider Reason for Visit Reason Onset Date Comments Medication Request 10/31/2019 Encounter Details Date Type Department Care Team Description 10/31/2019 [facility] Urology Shea Rivera , Medication Request Clinic Shilpi LÓPEZ [address] [place] [address] [place] [phone] (Wo rk) Social History Tobacco Use Types Packs/Day Years Used Date Smoking Tobacco: Never Smokeless Tobacco: Never Alcohol Use Standard Drinks/Week Comments No 0 (1 standard drink = 0.6 oz pure alcoho l) Sex Assigned at Date Recorded Not on file documented as of this encounter Miscellaneous Notes Telephone Encounter - Heriberto Grossman - 10/31/2019 8:47 AM CST [facility] Phone Message May a detailed message be left on voicemail: yes Reason for Call: Medication Refill Request Has the patient contacted the pharmacy for the refill? Yes Name of medication being requested: tamsulosin (FLOMAX) 0.4 MG capsule Provider who prescribed the medication: Beverly Davis, RN Pharmacy: [facility] [place] [facility] [address] AT PORTAL TO [place] [place] Date medication is needed: 2/3 Action Taken: Message routed to: [facility] ([facility]): urology CLEANER documented in this encounter Plan of Treatment Upcoming Encounters Date Type Specialty Care Team Description 08/31/2022 Appointment Respiratory Therapy Timothy Smith MD [address] [place] [phone] (Wo rk) 09/28/2022 Lab Lab 09/28/2022 Office Visit Cardiology Timothy Smith MD [address] [place] [address] Trudi Grayson APRN BOOK TRIMMER [address] [address] 11/16/2022 Ancillary Procedure Cardiology Timothy Smith MD [address] [place] [address] (Wo rk) documented as of this encounter Visit Diagnoses Diagnosis BPH (benign prostatic hyperplasia) - Ria jing Unspecified hyperplasia of prostate with out urinary obstruction and other lower urinary tract symptoms (LUTS) documented in this encounter Care Teams Roller Presser Operator Relationship Specialty Start Date End Date Slava Hernandez PA-C PCP - General Physician Associate Professor Of Music 07/02/18 06/29/21 [facility] [address] [place] [address] documented as of this encounter
--- OUTSIDE RECORDS SUMMARY | 2022-08-22 06:54 | XMS_ITS | Encounter Summary ---
:1940 Author Organization [place] Address [address] [place] [address] Care Team Providers Name Role Phone Slava Hernandez PA-C Primary Care Provider Reason for Referral CV Testing (Routine) - Closed Specialty Diagnoses / Procedures Referred By Contact Refer red To Contact Diagnoses Cardiac pacemaker in situ Basil Guadalupe MD Procedures Cardiac Device Check - Remote [address] [facility] [address] [place] [address] Referral ID Status Reason Start Date Expiration Date Visits Requ ested Visits Authorized [id number] Closed 10/15/2019 10/14/2020 1 1 FAT PULLER Reason for Visit CV Testing (Routine) - Closed Specialty Diagnoses / Procedures Referred By Contact Refer red To Contact Diagnoses Cardiac pacemaker in situ [facility] Cv Cardiac Services Procedures Cardiac Device Check - In Clinic [address] [facility] [address] [place] [address] Referral ID Status Reason Start Date Expiration Date Visits Requ ested Visits Authorized [id number] Closed 06/25/2019 06/24/2020 1 1 Encounter Details Date Type Department Care Team Description 10/15/2019 Ancillary Procedure [facility] Timothy Smith MD Cardiac pacemaker in Heart Clinic [address] situ [facility] [address] [address] [place], [place] [address] [address] [place], [place] (Work) [phone] Social History Tobacco Use Types Packs/Day Years [...] [address] [place] [phone] (Wo rk) 09/28/2022 Lab Lab 09/28/2022 Office Visit Cardiology Timothy Smith MD [address] [place] [phone] Trudi Grayson APRN DIMENSION WAREHOUSE SUPERVISOR [address] [phone] 11/16/2022 Ancillary Procedure Cardiology Timothy Smith MD [address] [place] [phone] (Wo rk) documented as of this encounter Procedures Procedure Name Priority Date/Time Associated Comments Diagnosis PM DEVICE PROGRAMMING Routine 10/15/2019 9:24 AM Cardiac pacem vane Results for this EVAL, DUAL LEAD PACER CAUL FAT PULLER in situ proced ure are in the results section. documented in this encounter Results INTERROGATION DEVICE EVAL REMOTE PACER UP TO 90 DAYS (01/27/2020 7:40 AM CDT) Component Value Ref Test Analysis Performed PathJumio t Range Method Time At Signature Date Time [id number] MEDTRONIC Interrogation Session Implantable [employer] MED[employer]IC Pulse Generator Landcare Facilitator Implantable L121 ESSENTIO EL MEDTRONIC Pulse Generator Model Implantable [id number] MEDTRONIC Pulse Generator Serial Number Type Remote MEDTRONIC Interrogation Session Clinic Name [facility] MEDTRONIC Implantable Pacemaker MEDTRONIC Pulse Generator Type Implantable [id number] MEDTRONIC Pulse Generator Implant Date Implantable Lead [facility] [facility] MEDTRO RAUL Landcare Facilitator Implantable Lead 2088TC Tendril MEDTRONI C Model STS Implantable Lead [id number] MEDTRONIC Serial Number Implantable Lead [id number] MEDTRONIC Implant Date Implantable Lead Bipolar Lead MEDTRONIC Polarity Type Implantable Lead UNKNOWN MEDTRONIC Location Detail 1 Implantable Lead Right Atrium MEDTRONIC Location Implantable Lead [facility] [employer] [facility] MEDTRO RAUL Landcare Facilitator Implantable Lead Tendril MEDTRONI C Model STS Implantable Lead [id number] MEDTRONIC Serial Number Implantable Lead [id number] MEDTRONIC [...] [place] MEDTRONIC Statistic Vendor Type Category Episode [id number] MEDTRONIC Statistic Recent Date Time Start Episode [id number] MEDTRONIC Statistic Recent Date Time End Episode [id number] MEDTRONIC Statistic Recent Date Time Start Episode [id number] MEDTRONIC Statistic Recent Date Time End Episode [id number] MEDTRONIC Statistic Recent Date Time Start Episode [id number] MEDTRONIC Statistic Recent Date Time End Episode [id number] MEDTRONIC Statistic Recent Date Time Start Episode [id number] MEDTRONIC Statistic Recent Date Time End Episode APM-94 MEDTRONIC Identifier Episode Type Periodic EGM MEDTRONIC Category Episode Date [id number] MEDTRONIC Time Episode [id number]-2805 MEDTRONIC Identifier Episode Type Other MEDTRONIC Category Episode Date [id number] MEDTRONIC Time Episode V-1550 MEDTRONIC Identifier Episode Type [place] MEDTRONIC Category Episode Date [id number] MEDTRONIC Time Episode Duration 16 s MEDTRONIC Episode V-1549 MEDTRONIC Identifier Episode Type [place] MEDTRONIC Category Episode Date [id number] MEDTRONIC Time Episode Duration 26 s MEDTRONIC Episode V-1548 MEDTRONIC Identifier Episode Type [place] MEDTRONIC Category Episode Date [id number] MEDTRONIC Time Episode Duration 28 s MEDTRONIC Episode V-1547 MEDTRONIC Identifier Episode Type [place] MEDTRONIC Category Episode Date [id number] MEDTRONIC Time Episode Duration 12 s MEDTRONIC Episode V-1546 MEDTRONIC Identifier Episode Type [place] MEDTRONIC Category Episode Date [id number] MEDTRONIC Time Episode Duration 14 s MEDTRONIC Episode V-1545 MEDTRONIC Identifier Episode Type [place] MEDTRONIC Category Episode Date [id number] MEDTRONIC Time Episode Duration 21 s MEDTRONIC Episode V-1544 MEDTRONIC Identifier Episode Type [place] MEDTRONIC Category Episode Date [id number] MEDTRONIC Time Episode Duration 14 s MEDTRONIC Episode V-1543 MEDTRONIC Identifier Episode Type [place] MEDTRONIC Category Episode Date [id number] MEDTRONIC Time Episode Duration 37 s MEDTRONIC Episode V-1542 MEDTRONIC Identifier Episode Type [place] MEDTRONIC Category Episode Date [id number] MEDTRONIC Time Episode Duration 14 s MEDTRONIC Episode V-1541 MEDTRONIC Identifier Episode Type [place] MEDTRONIC Category Episode Date [id number] MEDTRONIC Time Episode Duration 23 s MEDTRONIC Anatomical Region Laterality Modality Other Specimen (Source) Anatomical Collection Method Collection Time Re ceived Time Location / / Volume Laterality 01/27/2020 12:41 AM CDT Narrative 02/10/2020 3:26 PM CDT [employer] Essentio (S) Remote PPM Device Check 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 MEDTRONIC Implantable Pacemaker MEDTRONIC Pulse Generator Type Implantable [id number] MEDTRONIC Pulse Generator Implant Date Implantable Lead [facility] MEDTRO RAUL Landcare Facilitator Implantable Lead 2088TC Tendril MEDTRONI C Model STS Implantable Lead [id number] MEDTRONIC Serial Number Implantable Lead 20160204 MEDTRONIC Implant Date Implantable Lead Bipolar Lead MEDTRONIC Polarity Type Implantable Lead UNKNOWN MEDTRONIC Location Detail 1 Implantable Lead Right Atrium MEDTRONIC Location Implantable Lead [facility] MEDTRO RAUL Landcare Facilitator Implantable Lead 8TC Tendril MEDTRONI C Model STS Implantable Lead [id number] MEDTRONIC Serial Number Implantable Lead 20160204 MEDTRONIC [...] NSVT MEDTRONIC Statistic Vendor Type Category Episode [id number] MEDTRONIC Statistic Total Date Time End Episode 97 MEDTRONIC Statistic Recent Count Episode [place] MEDTRONIC Statistic Type Category Episode NSVT MEDTRONIC Statistic Vendor Type Category Episode [id number] MEDTRONIC Statistic Recent Date Time Start Episode [id number] MEDTRONIC Statistic Recent Date Time End Anatomical Region Laterality Modality Other Specimen (Source) Anatomical Collection Method Collection Time Re ceived Time Location / / Volume Laterality 10/15/2019 3:46 PM CAUL FAT PULLER Narrative 10/16/2019 10:41 AM CAUL FAT PULLER [employer] Accolade (D) Pacemaker Device Check AP: <1 ?% ?? BOMB SQUAD OFFICER: 61 % ?? Mode: VVIR 60-130 (was [...] situ documented in this encounter Care Teams Program Manager Relationship Specialty Start Date End Date Slava Hernandez PA-C PCP - General Physician Chief Mate 07/02/18 06/29/21 [facility] [address] [place] [address] documented as of this encounter
--- OUTSIDE RECORDS SUMMARY | 2022-08-22 06:54 | XMS_ITS | Encounter Summary ---
:1940 Author Organization [place] Address [address] [address] Care Team Providers Name Role Phone Slava Hernandez PA-C Primary Care Provider Timothy Smith MD Unavailable Encounter Details Date Type Department Care Team Description 11/08/2020 Telephone [facility] Sergo Tamayo RN [place] [address] [place] [address] [address] [place] [address] Social History Tobacco Use Types [...] discuss further. Awaiting return call. SIENNA Okeefe SUPERVISOR Telephone Encounter - Temitope Tamayo RN - 11/08/2020 11:17 AM CST ----- Message from Catherine Aranda LPN sent at 11/08/2020 10:32 AM GATE SUPERVISOR ----- Pt left a VM message on my phone that eliquis is too expensive, over 500$, he Rosanna will not be taking that, what else can I try-will forward to AF team His pn# [phone] [place] loss prevention manager SUPERVISOR documented in this encounter Plan of Treatment Upcoming Encounters Date Type Specialty Care Team Description 08/31/2022 Appointment Respiratory Therapy Timothy Smith MD [address] [place] [address] (Wo rk) 09/28/2022 Lab Lab 09/28/2022 Office Visit Cardiology Timothy Smith MD [address] [place] [address] Trudi Grayson APRN CUSTOMER ACCOUNT TECHNICIAN [address] [place] [address] 11/16/2022 Ancillary Procedure Cardiology Timothy Smith MD [address] [place] [address] (Wo rk) documented as of this encounter Visit Diagnoses Not on filedocumented in this encounter Care Teams Wood Products Manufacturer Relationship Specialty Start Date End Date Slava Hernandez, PCP - General Physician Recoverer 07/02/1806/02 PA-C [facility] [address] [place], [place] [id number] Timothy Smith MD Assigned Heart and 07/23/[address] Vascular Provider [address] [place] [id number] documented as of this encounter
--- OUTSIDE RECORDS SUMMARY | 2022-08-22 06:54 | XMS_ITS | Encounter Summary ---
:1940 Author Organization [place] Address [address] [facility] [place] [address] Care Team Providers Name Role Phone Slava Hernandez PA-C Primary Care Provider Timothy Smiht MD Unavailable Reason for Visit CV Testing (Routine) - Closed Specialty Diagnoses / Procedures Referred By Contact Refer red To Contact Diagnoses Cardiac pacemaker in situ Timothy Smith MD Procedures Cardiac Device Check - Remote [address] [place] [address] Referral ID Status Reason Start Date Expiration Date Visits Requ ested Visits Authorized [id number] Closed 05/04/2020 05/04/2021 1 1 Encounter Details Date Type Department Care Team Description 08/03/2020 Ancillary Procedure [facility] Timothy Smith MD Cardiac pacemaker in [facility] [address] situ Heart Care S [address] [facility] [place] [address] [facility] [address] [place] [address] (Work) [phone] Social History Tobacco Use Types Packs/Day Years [...] [address] [place] [address] (Wo rk) 09/28/2022 Lab Lab 09/28/2022 Office Visit Cardiology Timothy Smith MD [address] [place] [address] Trudi Grayson APRN SALVAGE GRINDER [address] [place] [address] 11/16/2022 Ancillary Procedure Cardiology Timothy Smith MD [address] [place] [id number] (Wo rk) documented as of this encounter Procedures Procedure Name Priority Date/Time Associated Comments Diagnosis INTERROGATION DEVICE Routine 08/03/2020 8:56 AM Cardiac pacema ker Results for this EVAL REMOTE PACER UP GRINDING AND POLISHING LABORER in situ procedu re are in TO 90 DAYS the results section. documented in this encounter Results INTERROGATION DEVICE EVAL REMOTE PACER UP TO 90 DAYS (08/03/2020 8:56 AM GRINDING AND POLISHING LABORER) Component Value Ref Test Analysis Performed Pathologis t Range Method Time At Signature Date Time [id number] [employer]TRON[employer] Interrogation Session Implantable [place] [employer] Pulse Generator Art Class Model Implantable L121 ESSENTIO EL MEDTRONIC Pulse Generator Model Implantable [id number] MEDTRONIC Pulse Generator Serial Number Type Remote MEDTRONIC Interrogation Session Clinic Name [facility] MEDTRONIC Implantable Pacemaker MEDTRONIC Pulse Generator Type Implantable [id number] MED[employer]ONIC Pulse Generator Implant Date Implantable Lead [facility] RAUL Art Class Model Implantable Lead 2088TC Tendril MEDTRONI C Model STS Implantable Lead [id number] MEDTRONIC Serial Number Implantable Lead [id number] MEDTRONIC Implant Date Implantable Lead Bipolar Lead [employer]IC Polarity Type Implantable Lead UNKNOWN [employer]TRONIC Location Detail 1 Implantable Lead Right Atrium [employer]TRON[employer] Location Implantable Lead [facility] RAUL Art Class Model Implantable Lead 2088TC Tendril MEDTRONI C Model STS Implantable Lead [id number] [employer] Serial Number Implantable Lead [id number] MEDTRONIC Implant Date Implantable Lead Bipolar Lead [...] 100 % MEDTRONIC Remaining Percentage Brandon Statistic [id number] MEDTRONIC Date Time Start Brandon Statistic [id number] MEDTRONIC Date Time End Brandon Statistic 0 [...] [place] MEDTRONIC Statistic Vendor Type Category Episode [id number] MEDTRONIC Statistic Recent Date Time Start Episode [id number] MEDTRONIC Statistic Recent Date Time End Episode [id number] MEDTRONIC Statistic Recent Date Time Start Episode [id number] MEDTRONIC Statistic Recent Date Time End Episode [id number] MEDTRONIC Statistic Recent Date Time Start Episode [id number] MEDTRONIC Statistic Recent Date Time End Episode [id number] MEDTRONIC Statistic Recent Date Time Start Episode [id number] MEDTRONIC Statistic Recent Date Time End Episode APM-96 MEDTRONIC Identifier Episode Type Periodic EGM MEDTRONIC Category Episode Date [id number] MEDTRONIC Time Episode [id number] MEDTRONIC Identifier Episode Type Other MEDTRONIC Category Episode Date [id number] MEDTRONIC Time Episode V-1560 MEDTRONIC Identifier Episode Type [place] MEDTRONIC Category Episode Date [id number] MEDTRONIC Time Episode Duration 13 s MEDTRONIC Episode V-1559 MEDTRONIC Identifier Episode Type [place] MEDTRONIC Category Episode Date [id number] MEDTRONIC Time Episode Duration 19 s MEDTRONIC Episode V-1558 MEDTRONIC Identifier Episode Type [place] MEDTRONIC Category Episode Date [id number] MEDTRONIC Time Episode Duration 11 s MEDTRONIC Episode V-1557 MEDTRONIC Identifier Episode Type [place] MEDTRONIC Category Episode Date [id number] MEDTRONIC Time Episode Duration 11 s MEDTRONIC Episode V-1556 MEDTRONIC Identifier Episode Type [place] MEDTRONIC Category Episode Date [id number] MEDTRONIC Time Episode Duration 29 s MEDTRONIC Episode V-1555 MEDTRONIC Identifier Episode Type [place] MEDTRONIC Category Episode Date [id number] MEDTRONIC Time Episode Duration 13 s MEDTRONIC Anatomical Region Laterality Modality Other Specimen (Source) Anatomical Collection Method Collection Time Re ceived Time Location / / Volume Laterality 08/03/2020 12:41 AM GRINDING AND POLISHING LABORER Narrative 08/04/2020 1:54 PM GRINDING AND POLISHING LABORER [employer] Essentio (S) Remote PPM Device Check BRAND AMBASSADOR: 35%, Chronic AFib, taking Eliquis Mode: VVIR Presenting Rhythm: BRAND AMBASSADOR Heart Rate: adequate heart rates per his [...] situ documented in this encounter Care Teams Barking Machine Feeder Relationship Specialty Start Date End Date Slava Henrandez, PCP - General Physician Risk Professional 07/02/1806/02 PAIlanaC [facility] [address] [place] [address] Timothy Smith MD Assigned Heart and 07/23/20 [address] [facility] Vascular Provider [address] [place] [address] documented as of this encounter
--- OUTSIDE RECORDS SUMMARY | 2022-08-22 06:54 | XMS_ITS | Encounter Summary ---
:1940 Author Organization [place] Address [address] [facility] [place] [address] Care Team Providers Name Role Phone Slava [...] [address] [place] [id number] (Wo rk) 09/28/2022 Lab Lab 09/28/2022 Office Visit Cardiology Timothy Smith MD [address] [place] [address] Trudi Grayson APRN DIESEL ENGINE PIPE FITTER [address] [place] [address] [address] 11/16/2022 Ancillary Procedure Cardiology Timothy Smith MD [address] [place] [address] (Wo rk) documented as of this encounter Visit Diagnoses Not on filedocumented in this encounter Care Teams Student Financial Aid Manager Relationship Specialty Start Date End Date Slava Hernandez PA-C PCP - General Physician Pit Clerk 07/02/18 06/29/21 [facility] [address] [place], [place] [id number] documented as of this encounter
--- OUTSIDE RECORDS SUMMARY | 2022-08-22 06:54 | XMS_ITS | Encounter Summary ---
:1940 Author Organization [place] Address [address] [place] [address] Care Team Providers Name Role Phone Mary Slava Estrella PA-C Primary Care Provider Encounter Details Date Type Department Care Team Description 10/15/2019 Telephone [facility] Zina Myers, RN [address] [place] [phone] Social History Tobacco Use Types [...] PM CST Thank you for the update. E GOUGER Telephone Encounter - Kitty Myers RN - [...] Will route to Dr. Smith per protocol. E GOUGER documented in this encounter Plan of Treatment Upcoming Encounters Date Type Specialty Care Team Description 08/31/2022 Appointment Respiratory Therapy Timothy Smith MD [address] [place] [address] (Wo rk) 09/28/2022 Lab Lab 09/28/2022 Office Visit Cardiology Timothy Smith MD [address] [place] [address] Trudi Grayson, [employer] COUNTRY TRUCK DRIVER [address] [address] 11/16/2022 Ancillary Procedure Cardiology Timothy Smith MD [address] [place] [address] (Wo rk) documented as of this encounter Visit Diagnoses Not on filedocumented in this encounter Care Teams Traveling Nurse Relationship Specialty Start Date End Date Slava Hernandez PA-C PCP - General Physician Client Experience Manager 07/02/18 06/29/21 [facility] [address] [place] [address] documented as of this encounter
--- OUTSIDE RECORDS SUMMARY | 2022-08-22 06:55 | XMS_ITS | Encounter Summary ---
:1940 Author Organization [place] Address [facility] [place] [address] Care Team Providers Name Role Phone Slava Hernandez PA-C Primary Care Provider Reason for Visit Reason Onset Date Comments Refill Request 12/31/2018 Tamsulosin Encounter Details Date Type Department Care Team Description 12/31/2018 Refill [facility] Shea Rivera, Refill Request Urology Clinic Patt LÓPEZ (Tamsulosin) [address] [place] [address] [place], [place] [address] (Wo rk) Social History Tobacco Use Types [...] pt know. Thanks,MH ----- Message ----- From: Ines Afsaneh Loera Sent: 12/30/2018 9:51 AM To: Shea Rivera PA-C, # Subject: Medication Shea/ Nurses, Patient came in with Terazosin 5mg CAP And said he would like to switch back to Tamsulosin 0.4mg CAP. His preffered pharmacy is [facility], mail order. 90 day supply Call back if needed is [phone] Thanks! documented in this encounter Plan of Treatment Upcoming Encounters Date Type Specialty Care Team Description 08/31/2022 Appointment Respiratory Therapy Timothy Smith MD [address] [place] [phone] (Wo rk) 09/28/2022 Lab Lab 09/28/2022 Office Visit Cardiology Timothy Smith MD [address] [place] [address] Trudi Grayson APRN CNP [address] [address] 11/16/2022 Ancillary Procedure Cardiology Timothy Smith MD [address] [place] [address] (Wo rk) documented as of this encounter Visit Diagnoses Diagnosis Urinary frequency - Primary Weak urinary stream Slowing of urinary stream documented in this encounter Care Teams White Goods Appliance Tech Relationship Specialty Start Date End Date Slava Hernnadez PA-C PCP - General Physician Log Grader 07/02/18 06/29/21 [facility] [address] [place] [address] documented as of this encounter
--- OUTSIDE RECORDS SUMMARY | 2022-08-22 06:55 | XMS_ITS | Encounter Summary ---
:1940 Author Organization [place] Address [address] [facility] [place] [address] Care Team Providers Name Role Phone Slava [...] [address] [place] [address] (Wo rk) 09/28/2022 Lab Lab 09/28/2022 Office Visit Cardiology Timothy Smith MD [address] [place] [address] rTudi Grayson APRN MANAGER COMPETITIVE INTELLIGENCE [address] [place] [address] 11/16/2022 Ancillary Procedure Cardiology Timothy Smith MD [address] [place] [address] (Wo rk) documented as of this encounter Visit Diagnoses Not on filedocumented in this encounter Care Teams Paper Maker Relationship Specialty Start Date End Date Slava Hernandez PA-C PCP - General Physician Auto Mechanic Apprentice 07/02/18 06/29/21 [facility] [address] [place] [address] documented as of this encounter
--- OUTSIDE RECORDS SUMMARY | 2022-08-22 06:55 | XMS_ITS | Encounter Summary ---
:1940 Author Organization [place] Address [address] [facility] [place] [address] Care Team Providers Name Role Phone Slava Hernandez PA-C Primary Care Provider Reason for Visit Reason Onset Date Comments Clinic Care Coordination - Initial 11/26/2018 woods jessica OV Encounter Details Date Type Department Care Team Description 11/26/2018 Telephone [facility] Heart Lacy Washington C linic Care Coordination Clinic [place] RN - Initial (change OV) [address] [facility] [address] [place] [address] Social History Tobacco Use Types [...] mix up and pt will come to [place] on at 1050 and seeMaureen. Pt had BMP on 11/25. . Jing NICAL PRODUCER Telephone Encounter - Lacy [place] RN - 11/26/2018 8:19 AM CST LM with pt to have pt call back to discuss his OV scheduled for tomorrow and that it is not scheduled with enough time. MESHAelsonRN NICAL PRODUCER documented in this encounter Plan of Treatment Upcoming Encounters Date Type Specialty Care Team Description 08/31/2022 Appointment Respiratory Therapy Timothy Smith MD [address] [place] [address] (Wo rk) 09/28/2022 Lab Lab 09/28/2022 Office Visit Cardiology Timothy Smith MD [address] [place] [address] Trudi Grayson APRN SCIENTIFIC ASSOCIATE [address] [address] 11/16/2022 Ancillary Procedure Cardiology Timothy Smith MD [address] [place] [phone] (Wo rk) documented as of this encounter Visit Diagnoses Not on filedocumented in this encounter Care Teams Customizer Relationship Specialty Start Date End Date Slava Hernandez PA-C PCP - General Physician Frozen Food Department Manager 07/02/18 06/29/21 [facility] [address] [place] [address] documented as of this encounter
--- OUTSIDE RECORDS SUMMARY | 2022-08-22 06:55 | XMS_ITS | Encounter Summary ---
:1940 Author Organization [place] Address [address] [place] [address] Care Team Providers Name Role Phone Slava Hernandez PA-C Primary Care Provider Reason for Referral CV Testing - Closed Specialty Diagnoses / Procedures Referred By Contact Refer red To Contact Diagnoses Syncope and collapse Steven Canchola, Procedures Cardiac Device Check - Remote [address] [place] [address] Referral ID Status Reason Start Date Expiration Date Visits Requ ested Visits Authorized [id number] Closed 12/10/2018 12/10/2019 1 1 Reason for Visit CV Testing - Closed Specialty Diagnoses / Procedures Referred By Contact Refer red To Contact Diagnoses Syncope and collapse Steven Canchola, Procedures Cardiac Device Check - Remote [address] [place] [address] Referral ID Status Reason Start Date Expiration Date Visits Requ ested Visits Authorized [id number] Closed 09/01/2018 09/01/2019 1 1 Encounter Details Date Type Department Care Team Description 12/10/2018 [facility] Steven Canchola Sync ope and Procedure [facility] MD Jose collapse [facility] [address] [place] [address] [facility] [address] [place] [address] [place] [phone] (Wo rk) [address] [phone] Social History Tobacco Use Types Packs/Day Years [...] Smith MD [address] [place] [id number] (Wo rk) 09/28/2022 Lab Lab 09/28/2022 Office Visit Cardiology Timothy Smith MD [address] [place], [place] [address] Trudi Grayson APRN SALES REPRESENTATIVE PRINTING [employer]PPL[employer] [address] [address] 11/16/2022 Ancillary Procedure Cardiology Timothy Smith MD [address] [place] [id number] (Wo rk) documented as of this encounter [...] Range Method Time At Signature Date Time [id number] [employer] Interrogation Session Implantable [place] Scientific [employer]TRONIC Pulse Generator Skoog Operator Implantable L121 ESSENTIO EL [facility]TRONIC Pulse Generator Model Implantable [id number] MEDTRONIC Pulse Generator Serial Number Type Remote MEDTRONIC Interrogation Session Clinic Name [facility]ONIC Implantable Pacemaker MEDTRONIC Pulse Generator Type Implantable [id number] MEDTRONIC Pulse Generator Implant Date Implantable Lead [facility] RAUL Skoog Operator Implantable Lead 2087TC Tendril MEDTRONI C Model STS Implantable Lead [id number] MEDTRONIC Serial Number Implantable Lead [id number] MEDTRONIC Implant Date Implantable Lead Bipolar Lead [facility]IC Polarity Type Implantable Lead UNKNOWN [facility]TR[facility]IC Location Detail 1 Implantable Lead Right Atrium [facility]TR[facility]IC Location Implantable Lead [facility] RAUL Skoog Operator Implantable Lead 2087TC Tendril MEDTRONI C Model STS Implantable Lead [id number] [facility]TRONIC Serial Number Implantable Lead [id number] MEDTRONIC [...] MEDTRONIC Pacing Threshold Pulse Width Battery Date [id number] [facility]IC Time of Measurements Battery Status Beginning of MEDTRONIC Service Battery 114 mo [facility]TR[employer]IC Remaining Longevity Battery 100 % MEDTRONIC Remaining Percentage Brandon Statistic [id number] MEDTRONIC Date Time Start Brandon Statistic [id number] MEDTRONIC Date Time End Brandon Statistic 0 % MEDTRONIC RA Percent Paced Brandon Statistic 60 % MEDTRONIC RV Percent Paced Atrial Tachy [id number] MEDTRONIC Statistic Date Time Start Atrial Tachy 74605161150004 MEDTRONIC Statistic Date Time End Atrial Tachy 100 % MEDTRONIC Statistic AT/AF [place] Percent Episode 1 [facility]TR[facility]IC Statistic Recent Count [...] [place] MEDTRONIC Statistic Vendor Type Category Episode [id number] MEDTRONIC Statistic Recent Date Time Start Episode [id number] MEDTRONIC Statistic Recent Date Time End Episode [id number] MEDTRONIC Statistic Recent Date Time Start Episode [id number] MEDTRONIC Statistic Recent Date Time End Episode [id number] [facility]TRONIC Statistic Recent Date Time Start Episode [id number] [facility]TRONIC Statistic Recent Date Time End Episode [id number] MEDTRONIC Statistic Recent Date Time Start Episode [id number] MEDTRONIC Statistic Recent Date Time End Episode APM-91 [facility]TR[facility]IC Identifier Episode Type Periodic EGM MEDTRONIC Category Episode Date [id number] MED[facility]ONIC Time Episode RVAT-1947 MED[facility]IC Identifier Episode Type Other MEDTRONIC Category Episode Date [id number] MEDTRONIC Time Episode V-1456 MEDTRONIC Identifier Episode Type VT MEDTRONIC Category Episode Date [id number] MEDTRONIC Time Episode Duration 22 s MEDTRONIC Episode V-1455 MEDTRONIC Identifier Episode Type SVT MEDTRONIC Category Episode Vendor SVT MEDTRONIC Type Category Episode Date [id number] MEDTRONIC Time Episode Duration 110 s MEDTRONIC Episode V-1454 MEDTRONIC Identifier Episode Type [place] MEDTRONIC Category Episode Date [id number] MEDTRONIC Time Episode Duration 15 s MEDTRONIC Episode V-1453 MEDTRONIC Identifier Episode Type VT MEDTRONIC Category Episode Date [id number] MEDTRONIC Time Episode Duration 21 s MEDTRONIC Episode V-1452 MEDTRONIC Identifier Episode Type VT MEDTRONIC Category Episode Date [id number] MEDTRONIC Time Episode Duration 21 s MEDTRONIC Episode V-1451 MEDTRONIC Identifier Episode Type VT MEDTRONIC Category Episode Date [id number] MEDTRONIC Time Episode Duration 15 s MEDTRONIC Episode V-1450 MEDTRONIC Identifier Episode Type VT MEDTRONIC Category Episode Date [id number] MEDTRONIC Time Episode Duration 17 s MEDTRONIC Episode V-1449 MEDTRONIC Identifier Episode Type VT MEDTRONIC Category Episode Date [id number] MEDTRONIC Time Episode Duration 13 s MEDTRONIC Episode V-1448 MEDTRONIC Identifier Episode Type VT MEDTRONIC Category Episode Date [id number] MEDTRONIC Time Episode Duration 19 s MEDTRONIC Episode ATR-6506 MEDTRONIC Identifier Episode Type AT/AF MEDTRONIC Category Episode Date [id number] MEDTRONIC Time Episode V-1447 MEDTRONIC Identifier Episode Type VT MEDTRONIC Category Episode Date [id number] MEDTRONIC Time Episode Duration 17 s MEDTRONIC Episode V-1446 MEDTRONIC Identifier Episode Type VT MEDTRONIC Category Episode Date [id number] [facility]TR[facility]IC Time Episode Duration 14 s [facility]IC Anatomical Region Laterality Modality Other Specimen (Source) Anatomical Collection Method Collection Time Re ceived Time Location / / Volume Laterality 03/18/2019 5:41 AM CDT Narrative 03/19/2019 2:34 PM CDT SmartCare system L121 Essentio EL (D) Remote PPM Device CheckAP: 0%RECORDING STUDIO INTERNSHIP: 60%Mode: DDDRPresenting Rhythm: Chronic Afib and VPHeart [...] Steven Canchola MD [facility] [place] INTERROGATION DEVICE EVAL REMOTE PACER UP TO 90 DAYS (12/10/2018 10:02 AM CDT) Component Value Ref Test Analysis Performed Pathologis t Range Method Time At Signature Date Time [id number] [facility]TR[employer]IC Interrogation Session Implantable [place] Scientific [employer]ONIC Pulse Generator Skoog Operator Implantable L121 ESSENTIO EL [facility]TRONIC Pulse Generator Model Implantable 863143 MEDTRONIC Pulse Generator Serial Number Type Remote MEDTRONIC Interrogation Session Clinic Name [facility]IC Implantable Pacemaker MEDTRONIC Pulse Generator Type Implantable [id number] MEDTRONIC Pulse Generator Implant Date Implantable Lead [facility] MED[facility]O RAUL Skoog Operator Implantable Lead 2087TC Tendril MEDTRONI C Model STS Implantable Lead [id number] MEDTRONIC Serial Number Implantable Lead 20160204 MEDTRONIC Implant Date Implantable Lead Bipolar Lead [facility]ONIC Polarity Type Implantable Lead UNKNOWN [facility]TRONIC Location Detail 1 Implantable Lead Right Atrium [facility] Location Implantable Lead [facility] MED[facility]O RAUL Skoog Operator Implantable Lead 8TC Tendril MEDTRONI C Model STS Implantable Lead [id number] MEDTRONIC Serial Number Implantable Lead 20160204 MEDTRONIC [...] MEDTRONIC Pacing Threshold Pulse Width Battery Date 80395695991433 MEDTRONIC Time of Measurements Battery Status Beginning of MEDTRONIC Service Battery 102 mo MEDTRONIC Remaining Longevity Battery 97 % [facility]TRONIC Remaining Percentage Brandon Statistic [id number] MEDTRONIC Date Time Start Brandon Statistic 61946940773735 MEDTRONIC Date Time End Brandon Statistic 0 % MEDTRONIC RA Percent Paced Brandon Statistic 71 % MEDTRONIC RV Percent Paced Atrial Tachy 00354013288769 MEDTRONIC Statistic Date Time Start Atrial Tachy 13627665753734 MEDTRONIC Statistic Date Time End Atrial Tachy 100 % MEDTRONIC Statistic AT/AF [place] Percent Episode 0 MEDTRONIC Statistic Recent Count [...] [place] MEDTRONIC Statistic Vendor Type Category Episode [id number] MEDTRONIC Statistic Recent Date Time Start Episode [id number] MEDTRONIC Statistic Recent Date Time End Episode [id number] MEDTRONIC Statistic Recent Date Time Start Episode [id number] MEDTRONIC Statistic Recent Date Time End Episode [id number] MEDTRONIC Statistic Recent Date Time Start Episode [id number] MEDTRONIC Statistic Recent Date Time End Episode [id number] MEDTRONIC Statistic Recent Date Time Start Episode [id number] MEDTRONIC Statistic Recent Date Time End Episode APM-90 MEDTR[facility]IC Identifier Episode Type Periodic EGM MEDTRONIC Category Episode Date [id number] MEDTRONIC Time Episode RVAT-1695 MEDTRONIC Identifier Episode Type Other MEDTRONIC Category Episode Date [id number] MEDTRONIC Time Episode V-1440 MEDTRONIC Identifier Episode Type VT MEDTRONIC Category Episode Date [id number] MEDTRONIC Time Episode Duration 12 s MEDTRONIC Episode V-1439 MEDTRONIC Identifier Episode Type VT MEDTRONIC Category Episode Date [id number] MEDTRONIC Time Episode Duration 13 s MEDTRONIC Anatomical Region Laterality Modality Other Specimen (Source) Anatomical Collection Method Collection Time Re ceived Time Location / / Volume Laterality 12/10/2018 5:42 AM CDT Narrative 12/11/2018 12:07 PM CDT SmartCare system Essentio (D) Remote PPM Device CheckAP: 0%\X090A\RECORDING STUDIO INTERNSHIP: 71%Mode: ??DDDR ? Presenting Rhythm: AFib with [...] ont. Gave patient results over the phone. Maru,CVTI have reviewed and interpreted the device interrogation, settings, programming and nurse's summary. The device is functioning within normal device paramet ers. I agree with the current findings, assessment and plan. Steven Canchola MD [facility] [place] documented in this encounter Visit Diagnoses Diagnosis Syncope and collapse Syncope and collapse documented in this encounter Care Teams Arts Therapist Relationship Specialty Start Date End Date Slava Hernandez PA-C PCP - General Physician Marine Plumber 07/02/18 06/29/[address] [address] documented as of this encounter
--- OUTSIDE RECORDS SUMMARY | 2022-08-22 06:55 | XMS_ITS | Encounter Summary ---
:1940 Author Organization [place] Address [address] [place] [address] Care Team Providers Name Role Phone Slava Hernandez PA-C Primary Care Provider Reason for Referral (Routine) - Closed Specialty Diagnoses / Procedures Referred By Contact Refer red To Contact Diagnoses Persistent atrial fibrillation (H) Ankur Smith MD [address] [place] [address] Referral ID Status Reason Start Date Expiration Date Visits Requ ested Visits Authorized [id number] Closed 06/25/2019 06/24/2020 1 1 (Routine) - Closed Specialty Diagnoses / Procedures Referred By Contact Refer red To Contact Diagnoses Persistent atrial fibrillation (H) Ankur Smith MD [address] [place] [address] Referral ID Status Reason Start Date Expiration Date Visits Requ ested Visits Authorized [id number] Closed 06/25/2019 06/24/2020 1 1 Reason for Visit Reason Comments Consult AF, cardiomyopathy, PPM, CA D (Routine) - Closed Specialty Diagnoses / Procedures Referred By Contact Refer red To Contact Diagnoses Persistent atrial fibrillation (H) Chronic systolic congestive heart failure (H) Elda Johnson, FLACO ROLLE [address] [place] [address] Referral ID Status Reason Start Date Expiration Date Visits Requ ested Visits Authorized [id number] Closed 01/22/2019 01/22/2020 1 1 Encounter Details Date Type Department Care Team Description 06/25/2019 Office Visit [facility] Alex Ryannterri Montoya, CURING FINISHER MEDIA SALES CONSULTANT [address] [place] [address] Persistent atrial fibrillation (H); [facility] Ankur Smith MD [address] [place] [id number] Chronic systolic congestive heart failur e (H) [place] [address] [place] [address] [address] [place] [phone] Social History Tobacco Use Types Packs/Day Years [...] encouraged to lose weight. cc: HANK Handley [facility] [address] [place] [address] ANKUR SMITH MD MT: CAITLYN Name: RADHA VILLA MRN: [id number] Account: [id number] : 1940 Service Date: 06/25/2019 Document: [id number] Ankur Smith MD - 06/25/2019 10:15 AM CDT HPI and Plan: See dictation Orders Placed This Encounter Procedures ??? Follow-Up with Cardiac Advanced Practice Provider ??? Follow-Up with Juice Packaging Machines Setter ??? EKG 12-lead complete w/read (Future)- to [...] Other Topics Concern ??? Parent/sibling w/ CABG, NC or angioplasty before 65F 55M? No ??? [...] Oriented x 3 CC Slava Hernandez PA-C [facility] [address] [place] [address] documented in this encounter Plan of Treatment Upcoming Encounters Date Type Specialty Care Team Description 08/31/2022 Appointment Respiratory Therapy Ankur Smith MD [address] [place] [phone] (Wo rk) 09/28/2022 Lab Lab 09/28/2022 Office Visit Cardiology Ankur Smith MD [address] [place] [address] Trudi Grayson, FLACO MEDIA SALES CONSULTANT [address] [place] [address] 11/16/2022 Ancillary Procedure Cardiology Ankur Smith MD [address] [place], [place] [address] (Wo rk) Scheduled Referrals Name Type Priority Associated Diagnoses Order S chedule Follow-Up with Cardiac Referral Routine Persistent atrial Expected: Advanced Practice Provider fibrillation ( H) 12/24/2019 (Approximate), Expires: 06/24/2020 Follow-Up with Referral Routine Persistent atrial Expected : Juice Packaging Machines Setter fibrillation (H) 06/02 (Approximate), Expires: 11/06/2020 documented [...] failure documented in this encounter Care Teams Swat Team Member Relationship Specialty Start Date End Date Slava Hernandez, PAIlanaC PCP - General Physician Civil Design Specialist 07/02/18 06/29/21 [facility] [address] [place] [address] documented as of this encounter
--- OUTSIDE RECORDS SUMMARY | 2022-08-22 06:55 | XMS_ITS | Encounter Summary ---
:1940 Author Organization [place] Address [address] [place] [address] Care Team Providers Name Role Phone Slava Hernandez PA-C Primary Care Provider Reason for Visit CV Testing (Routine) - Closed Specialty Diagnoses / Procedures Referred By Contact Refer red To Contact Diagnoses Cardiac pacemaker in situ [facility] Cv Cardiac Services Procedures Cardiac Device Check - Remote [address] [facility] [address] [place] [address] Referral ID Status Reason Start Date Expiration Date Visits Requ ested Visits Authorized [id number] Closed 01/23/2019 01/23/2020 1 1 Encounter Details Date Type Department Care Team Description 06/25/2019 Ancillary Procedure [facility] Basil Guadalupe ardiac pacemaker in [facility] MD Tawanda situ [facility] [address] [facility] [id number] [facility] [address] [place] [address] [place] [phone] (Work) [phone] Social History Tobacco Use Types Packs/Day Years Used Date Smoking Tobacco: Never Smokeless Tobacco: Never Alcohol Use Standard Drinks/Week Comments No 0 (1 standard drink = 0.6 oz pure alcoho l) Sex Assigned at Date Recorded Not on file documented as of this encounter Plan of Treatment Upcoming Encounters Date Type Specialty Care Team Description 08/31/2022 Appointment Respiratory Therapy Timothy Smith MD [address] [place] [address] (Wo rk) 09/28/2022 Lab Lab 09/28/2022 Office Visit Cardiology Timothy Smith MD [address] [place] [address] Trudi Grayson APRN SUPERVISOR DOG LICENSE OFFICER [address] [place] [phone] 11/16/2022 Ancillary Procedure Cardiology Timothy Smith MD [address] [place] [id number] (Wo rk) documented as of this encounter [...] Range Method Time At Signature Date Time [id number] [employer]IC Interrogation Session Implantable [place] Scientific MEDTRONIC Pulse Generator Cutter Operator Tile Implantable L121 ESSENTIO EL [employer]TRONIC Pulse Generator Model Implantable 007733 MEDTRONIC Pulse Generator Serial Number Type Remote MEDTRONIC Interrogation Session Clinic Name [facility]ONIC Implantable Pacemaker MEDTRONIC Pulse Generator Type Implantable [id number] MEDTRONIC Pulse Generator Implant Date Implantable Lead [facility]O RAUL Cutter Operator Tile Implantable Lead 2087TC Tendril MEDTRONI C Model STS Implantable Lead [id number] MEDTRONIC Serial Number Implantable Lead 20160204 MEDTRONIC Implant Date Implantable Lead Bipolar Lead MEDTRONIC Polarity Type Implantable Lead UNKNOWN MEDTRONIC Location Detail 1 Implantable Lead Right Atrium [facility]TR[facility]IC Location Implantable Lead [facility]O RAUL Cutter Operator Tile Implantable Lead 2087TC Tendril MEDTRONI C Model STS Implantable Lead [id number] MEDTRONIC Serial Number Implantable Lead 20160204 MEDTRONIC Implant Date Implantable Lead Bipolar Lead [facility]TRONIC Polarity Type Implantable Lead UNKNOWN MEDTRONIC Location Detail 1 Implantable Lead Right Ventricle MEDTRON IC Location Brandon Setting DDDR MEDTRONIC Mode (NBG Code) Brandon Setting 60 {beats}/ MEDTRONIC Lower Rate Limit min Brandon Setting 130 {beats}/ MEDTRONIC Maximum Tracking min Rate Brandon Setting 300 ms MEDTRONIC HNAS Delay Low Brandon Setting 300 ms MEDTRONIC [...] MEDTRONIC Pacing Threshold Pulse Width Battery Date 46304429855593 MEDTRONIC Time of Measurements Battery Status Beginning of MEDTRONIC Service Battery 108 mo MEDTRONIC Remaining Longevity Battery 100 % MEDTRONIC Remaining Percentage Brandon Statistic [id number] MEDTRONIC Date Time Start Brandon Statistic MEDTRONIC Date Time End Brandon Statistic 0 % MEDTRONIC RA Percent Paced Brandon Statistic 62 % MEDTRONIC RV Percent Paced Atrial Tachy 55134897410425 MEDTRONIC Statistic Date Time Start Atrial Tachy 49723696387856 MEDTRONIC Statistic Date Time End Atrial Tachy 100 % MEDTRONIC Statistic AT/AF [place] Percent Episode 5 MEDTRONIC Statistic Recent Count [...] [place] MEDTRONIC Statistic Vendor Type Category Episode [id number] MEDTRONIC Statistic Recent Date Time Start Episode [id number] MEDTRONIC Statistic Recent Date Time End Episode [id number] MEDTRONIC Statistic Recent Date Time Start Episode [id number] MEDTRONIC Statistic Recent Date Time End Episode [id number] MEDTRONIC Statistic Recent Date Time Start Episode [id number] MEDTRONIC Statistic Recent Date Time End Episode [id number] MEDTRONIC Statistic Recent Date Time Start Episode [id number] MEDTRONIC Statistic Recent Date Time End Episode APM-92 MEDTRONIC Identifier Episode Type Periodic EGM MEDTRONIC Category Episode Date [id number] MEDTRONIC Time Episode RVAT-2151 MEDTRONIC Identifier Episode Type Other MEDTRONIC Category Episode Date [id number] MEDTRONIC Time Episode ATR-6510 MEDTRONIC Identifier Episode Type AT/AF MEDTRONIC Category Episode Date [id number] MEDTRONIC Time Episode V-1530 MEDTRONIC Identifier Episode Type [place] MEDTRONIC Category Episode Date [id number] MEDTRONIC Time Episode Duration 15 s MEDTRONIC Episode V-1529 MEDTRONIC Identifier Episode Type VT MEDTRONIC Category Episode Date [id number] MEDTRONIC Time Episode Duration 14 s MEDTRONIC Episode V-1528 MEDTRONIC Identifier Episode Type VT MEDTRONIC Category Episode Date [id number] MEDTRONIC Time Episode Duration 15 s MEDTRONIC Episode V-1527 MEDTRONIC Identifier Episode Type VT MEDTRONIC Category Episode Date [id number] MEDTRONIC Time Episode Duration 14 s MEDTRONIC Episode V-1526 MEDTRONIC Identifier Episode Type VT MEDTRONIC Category Episode Date [id number] MEDTRONIC Time Episode Duration 14 s MEDTRONIC Episode V-1525 MEDTRONIC Identifier Episode Type VT MEDTRONIC Category Episode Date [id number] MEDTRONIC Time Episode Duration 15 s MEDTRONIC Episode V-1524 MEDTRONIC Identifier Episode Type VT MEDTRONIC Category Episode Date [id number] MEDTRONIC Time Episode Duration 40 s MEDTRONIC Episode V-1523 MEDTRONIC Identifier Episode Type VT MEDTRONIC Category Episode Date [id number] MEDTRONIC Time Episode Duration 16 s MEDTRONIC Episode V-1522 MEDTRONIC Identifier Episode Type VT MEDTRONIC Category Episode Date [id number] MEDTRONIC Time Episode Duration 15 s MEDTRONIC Episode V-1521 MEDTRONIC Identifier Episode Type VT MEDTRONIC Category Episode Date [id number] MEDTRONIC Time Episode Duration 14 s MEDTRONIC Episode ATR-6509 MEDTRONIC Identifier Episode Type AT/AF MEDTRONIC Category Episode Date [id number] MEDTRONIC Time Episode Duration 1,020,750 s MEDTRONIC Episode ATR-6508 MEDTRONIC Identifier Episode Type AT/AF MEDTRONIC Category Episode Date [id number] MEDTRONIC Time Episode Duration 2,246,835 s MEDTRONIC Episode ATR-6507 MEDTRONIC Identifier Episode Type AT/AF MEDTRONIC Category Episode Date [id number] MEDTRONIC Time Episode Duration 30 s MEDTRONIC Anatomical Region Laterality Modality Other Specimen (Source) Anatomical Collection Method Collection Time Re ceived Time Location / / Volume Laterality 06/25/2019 5:40 AM CDT Narrative 07/01/2019 8:21 AM CDT Moovweb L121 Essentio EL (D) Remote PPM Device CheckAP: 0%MECHANIST: 62%Mode: DDDRPresenting Rhythm: Afib wit h MECHANIST & VSHeart Rate: adequate heart rates per [...] situ documented in this encounter Care Teams Laundry Machine Mechanic Relationship Specialty Start Date End Date Slava Hernandez PA-C PCP - General Physician Tableau Architect 07/02/18 06/29/21 [facility] [address] [place] [address] documented as of this encounter
--- OUTSIDE RECORDS SUMMARY | 2022-08-22 06:55 | XMS_ITS | Encounter Summary ---
:1940 Author Organization [facility] Address [address] [facility] [place] [address] Care Team Providers Name Role Phone Slava [...] [address] [place] [address] (Wo rk) 09/28/2022 Lab Lab 09/28/2022 Office Visit Cardiology Timothy Smith MD [address] [place] [address] Trudi Grayson APRN PERIPHERAL VASCULAR TECH [address] [address] 11/16/2022 Ancillary Procedure Cardiology Tiomthy Smith MD [address] [place] [address] (Wo rk) documented as of this encounter Visit Diagnoses Not on filedocumented in this encounter Care Teams Soil Science Teacher Relationship Specialty Start Date End Date Slava Hernandez PA-C PCP - General Physician Histology Teacher 07/02/18 06/29/[address] [facility] [address] [place] [address] documented as of this encounter
--- OUTSIDE RECORDS SUMMARY | 2022-08-22 06:55 | XMS_ITS | Encounter Summary ---
:1940 Author Organization [place] Address [address] [place] [address] Care Team Providers Name Role Phone Slava Hernandez PA-C Primary Care Provider Encounter Details Date Type Department Care Team Description 02/03/2019 [facility] Only [facility] Heart Agriculture Inspector jordyn systolic Clinic [place] congestive heart failure [address] [place] [address] [place] [address] Social History Tobacco Use [...] 08/31/2022 Appointment Respiratory Therapy Timothy Smith MD [address] [place] [phone] (Wo rk) 09/28/2022 Lab Lab 09/28/2022 Office Visit Cardiology Timothy Smith MD [address] [place] [phone] Trudi Grayson APRN OUTSIDE SALES REPRESENTATIVE [address] [id number] 11/16/2022 Ancillary Procedure Cardiology Timothy Smith MD [address] [place] [id number] (Wo rk) documented as of this encounter Procedures Procedure Name Priority Date/Time Associated Diagnosis Comme nts BASIC METABOLIC Routine 02/03/2019 11:17 AM Chronic systolic R esults for this PANEL CDT congestive heart procedure a re in failure (H) the results section. documented in this encounter Results (ABNORMAL) Basic metabolic panel (02/03/2019 11:17 AM CDT) Analysis Performed At [facility] Time Signature Sodium 140 133 - 144 02/03/2019 [facility] mmol/L 12:07 PM [facility] Potassium 4.1 3.4 - 5.3 02/03/2019 [facility] mmol/L 12:07 PM [facility] Chloride 104 94 - 109 02/03/2019 [facility] mmol/L 12:07 PM [facility] Carbon Dioxide 30 20 - 32 02/03/2019 [place] mmol/L 12:15 PM [facility] Anion Gap 6 3 - 14 02/03/2019 [facility] mmol/L 12:15 PM [facility] Glucose 95 70 - 99 02/03/2019 [place] mg/dL 12:15 PM [facility] Urea Nitrogen 39 (H) 7 - 30 02/03/2019 [facility] mg/dL 12:15 PM [facility] Creatinine 1.64 (H) 0.66 - 02/03/2019 [facility] 1.25 mg/dL 12:15 PM [facility] GFR Estimate 39 (L) >60 02/03/2019 [place] mL/min/{1. 12:15 PM [facility] Comment: Non GFR Calc Starting 09/17/2018, serum creatinine ba sed estimated GFR (eGFR) will be calculated using the Chronic Kidney Dise [facility] Epidemiology Collaboration (CKD-EPI) equation. GFR Estimate If 45 (L) >60 mL/min/{1.73_m2} 02/03/2019 12:15 PM [facility] Comment: GFR Calc Starting 09/17/2018, serum creatinine ba sed estimated GFR (eGFR) will be calculated using the Chronic Kidney Dise [place] Epidemiology Collaboration (CKD-EPI) equation. Calcium 9.6 8.5 - 10.1 mg/dL 02/03/2019 12:15 PM CDT [facility] Specimen Anatomical Collection Method Collection Time Receive d Time (Source) Location / / Volume Laterality Blood specimen 02/03/2019 11:17 9 (specimen) AM CDT 11:22 AM CDT Elda Lindsayvirgil Johnson ABATEMENT WORKER OUTSIDE SALES REPRESENTATIVE LAB - BLOOD ORDERABL ES Performing Organization Address City/State/ZIP Code Phon e Number [place] [address] [address] [place], [place] [address] [facility] [address] [phone] documented in this encounter Visit Diagnoses Diagnosis Chronic systolic congestive heart failur e (H) Chronic systolic heart failure documented in this encounter Care Teams Nutrition Instructor Relationship Specialty Start Date End Date Slava Hernandez PAIlanaC PCP - General Physician Institutional Research Director 07/02/18 06/29/21 [facility] [address] [place] [address] documented as of this encounter
--- OUTSIDE RECORDS SUMMARY | 2022-08-22 06:55 | XMS_ITS | Encounter Summary ---
:1940 Author Organization [place] Address [address] [place] [address] Care Team Providers Name Role Phone Slava Hernandez PA-C Primary Care Provider Reason for Referral (Routine) - Closed Specialty Diagnoses / Procedures Referred By Contact Refer red To Contact Diagnoses Persistent atrial fibrillation (H) Chronic systolic congestive heart failure (H) Elda Johnson APRN EXPANDING MACHINE OPERATOR [address] [place] [address] Referral ID Status Reason Start Date Expiration Date Visits Requ ested Visits Authorized [id number] Closed 01/22/2019 01/22/2020 1 1 Specialty Diagnoses / Procedures Referred By Contact Refer red To Contact Elda Johnson APRN CNP [address] [place] [address] Referral ID Status Reason Start Date Expiration Date Visits Requ ested Visits Authorized Reason for Visit Reason Comments Follow Up 2 week followup - Closed Specialty Diagnoses / Procedures Referred By Contact Refer red To Contact Diagnoses Persistent atrial fibrillation (H) Timothy Smith MD [address] [place] [address] Referral ID Status Reason Start Date Expiration Date Visits Requ ested Visits Authorized [id number] Closed 01/01/2019 01/01/2020 1 1 Encounter Details Date Type Department Care Team Description 01/22/2019 Office Visit [facility] Timothy Smith MD [address] [place] [address] Chronic systolic congestive heart failur e (H) (Primary Dx); Heart Clinic Elda Johnson APRN EXPANDING MACHINE OPERATOR [address] [place] [address] Persistent atrial fibrillation (H) [address] [place] [address] Social History Tobacco Use Types [...] this encounter Progress Notes Elda Johnson APRN EXPANDING MACHINE OPERATOR - 01/22/2019 9:30 AM CDT HPI: [place] [...] (diabetes, CAD, age++) 3.?Sinus node dysfunction??s/p dual-chamber [employer] pacemaker 01/2016. 4.?Coronary disease??status post 4v CABG 1986. Thought to be VG -OM, VG-RCA, VG-LAD and VG-D at that time. Angiogram 01/2016 showed patent VGs 5.?Cardiomyopathy, 6. RBBB 7.?Other diagnosis include Obstructive sleep apnea, type 2 diabetes, obesity Diagnostics: EKG??(11/15/2018) revealed intermittent??SHUTTLE BUGGY OPERATOR @ 76 bpm with 2 PVCs of [...] stress as his is currently hospitalized at [facility] and he had to stop 1x walking [...] any questions or concerns. Elda Johnson APRN, EXPANDING MACHINE OPERATOR This note was completed in part using [employer] voice recognition software. Although reviewed after completion, some word and grammatical errors may occur. Orders Placed This Encounter Procedures ??? Basic metabolic panel ??? [facility] ??? Follow-Up with Candlemaking Laborer ??? EKG 12-lead complete w/read - Clinics [...] INR 1.00 02/04/2016 [facility] Timothy Smith MD [address] [place] [id number] documented in this encounter Plan of Treatment Upcoming Encounters Date Type Specialty Care Team Description 08/31/2022 Appointment Respiratory Therapy Timothy Smith MD [address] [place] [id number] (Wo rk) 09/28/2022 Lab Lab 09/28/2022 Office Visit Cardiology Timothy Smith MD [address] [place] [id number] Trudi Grayson APRN EXPANDING MACHINE OPERATOR [address] [id number] 11/16/2022 Ancillary Procedure Cardiology Timothy Smith MD [address] [place] [id number] (Wo rk) Scheduled Referrals Name Type Priority Associated Diagnoses Order S [facility] Clinic Referral Routine Chronic systolic Expected: congestive heart 01/29/2019 failure (H) (Approximate), Expires: 01/23/2020 Follow-Up with Referral Routine Persistent atrial Expected : Candlemaking Laborer fibrillation (H) 04/23/2019 Chronic systolic (Approximat e), [...] - 144 02/03/2019 [facility] mmol/L 12:07 PM [facility] Potassium 4.1 3.4 - 5.3 02/03/2019 [facility] mmol/L 12:07 PM [facility] Chloride 104 94 - 109 02/03/2019 [facility] mmol/L 12:07 PM [facility] Carbon Dioxide 30 20 - 32 02/03/2019 [facility] mmol/L 12:15 PM [facility] Anion Gap 6 3 - 14 02/03/2019 [facility] mmol/L 12:15 PM [facility] Glucose 95 70 - 99 02/03/2019 [facility] mg/dL 12:15 PM [facility] Urea Nitrogen 39 (H) 7 - 30 02/03/2019 [facility] mg/dL 12:15 PM [facility] Creatinine 1.64 (H) 0.66 - 02/03/2019 [facility] 1.25 mg/dL 12:15 PM [facility] GFR Estimate 39 (L) >60 02/03/2019 [facility] mL/min/{1. 12:15 PM [facility] 73_m2} [facility] Comment: Non GFR Calc Starting 09/17/2018, serum creatinine ba sed estimated GFR (eGFR) will be calculated using the Chronic Kidney Dise [facility] Epidemiology Collaboration (CKD-EPI) equation. GFR Estimate If 45 (L) >60 mL/min/{1.73_m2} 02/03/2019 12:15 PM [facility] Comment: GFR Calc Starting 09/17/2018, serum creatinine ba sed estimated GFR (eGFR) will be calculated using the Chronic Kidney Dise [facility] Epidemiology Collaboration (CKD-EPI) equation. Calcium 9.6 8.5 - 10.1 mg/dL 02/03/2019 12:15 PM CDT [facility] Specimen Anatomical Collection Method Collection Time Receive d Time (Source) Location / / Volume Laterality Blood specimen 02/03/2019 11:17 9 (specimen) AM CDT 11:22 AM CDT Elda Johnson APRN, CNP LAB - BLOOD ORDERABL ES Performing Organization Address City/State/ZIP Code Phon e Number [place] [address] [address] [place] [address] [phone] EKG 12-lead complete w/read - Clinics (performed today) (01/22/2019 3:09 PM CDT) Narrative This result has an attachment that is no t available. Elda Johnson APRN, CNP ECG ORDERABLES documented in this encounter Visit Diagnoses Diagnosis Chronic systolic congestive heart failur e (H) - Primary Chronic systolic heart failure Persistent atrial fibrillation (H) Atrial fibrillation documented in this encounter Care Teams Tower Control Operator Relationship Specialty Start Date End Date Slava Hernandez PA-C PCP - General Physician Screen Printing Supervisor 07/02/18 06/29/[address] [address] documented as of this encounter
--- OUTSIDE RECORDS SUMMARY | 2022-08-22 06:55 | XMS_ITS | Encounter Summary ---
:1940 Author Organization [place] Address [address] [place] [address] Care Team Providers Name Role Phone Slava Hernandez PA-C Primary Care Provider Reason for Referral CV Testing (Routine) - Closed Specialty Diagnoses / Procedures Referred By Contact Refer red To Contact Diagnoses Cardiac pacemaker in situ [facility] Cv Cardiac Services Procedures Cardiac Device Check - Remote [address] [facility] [address] [place] [phone] Referral ID Status Reason Start Date Expiration Date Visits Requ ested Visits Authorized [id number] Closed 01/23/2019 01/23/2020 1 1 Encounter Details Date Type Department Care Team Description 01/23/2019 Orders Only [facility] Kitty Myers, Cardi ac pacemaker in [facility] RN situ (Ria ch Dx) Heart Care [address] [facility] [address] [place] [address] Social [...] 08/31/2022 Appointment Respiratory Therapy Timothy Smith MD [address] [facility] [address] [place] [address] (Wo rk) 09/28/2022 Lab Lab 09/28/2022 Office Visit Cardiology Timothy Smith MD [address] [place] [address]66[address] Trudi Grayson, [employer] BPM ARCHITECT SUPERVISOR PRODUCT INSPECTION [address] [place] [id number] 11/16/2022 Ancillary Procedure Cardiology Timothy Smith MD [address] [place] [phone] (Wo rk) documented as of this encounter Results INTERROGATION DEVICE EVAL REMOTE PACER UP TO 90 DAYS (06/25/2019 8:54 AM CDT) Component Value Ref Test Analysis Performed Pathologis t Range Method Time At Signature Date Time [id number] [employer] Interrogation Session Implantable [employer] Pulse Generator Wan Support Specialist Implantable L121 ESSENTIO EL [employer] Pulse Generator Model Implantable [id number] [employer] Pulse Generator Serial Number Type Remote [employer] Interrogation Session Clinic Name [facility] Implantable Pacemaker [employer] Pulse Generator Type Implantable [id number] [employer] Pulse Generator Implant Date Implantable Lead [facility] RAUL Wan Support Specialist Implantable Lead [id number] Tendril MEDTRONI C Model STS Implantable Lead [id number] [employer] Serial Number Implantable Lead [id number] [employer] Implant Date Implantable Lead Bipolar Lead [employer] Polarity Type Implantable Lead UNKNOWN [employer] Location Detail 1 Implantable Lead Right Atrium [employer] Location Implantable Lead [facility] RAUL Wan Support Specialist Implantable Lead 2087TC Tendril [employer]I C Model STS Implantable Lead [id number] [employer] Serial Number Implantable Lead [id number] [employer] [...] 100 % [employer] Remaining Percentage Brandon Statistic [id number] [employer] Date Time Start Brandon Statistic [id number] [employer] Date Time End Brandon Statistic 0 % [employer] RA Percent Paced Brandon Statistic 62 % [employer] RV Percent Paced Atrial Tachy [id number] [employer] Statistic Date Time Start Atrial Tachy [id number] [employer] Statistic Date Time End Atrial Tachy 100 % [employer] Statistic AT/AF [place] Percent Episode 5 [employer] Statistic Recent Count [...] [place] [employer] Statistic Vendor Type Category Episode [id number] [employer] Statistic Recent Date Time Start Episode [id number] [employer] Statistic Recent Date Time End Episode [id number] [employer] Statistic Recent Date Time Start Episode [id number] [employer] Statistic Recent Date Time End Episode [id number] [employer] Statistic Recent Date Time Start Episode [id number] [employer] Statistic Recent Date Time End Episode [id number] [employer] Statistic Recent Date Time Start Episode [id number] [employer] Statistic Recent Date Time End Episode APM-92 [employer] Identifier Episode Type Periodic EGM [employer] Category Episode Date [id number] [employer] Time Episode [id number] [employer] Identifier Episode Type Other [employer] Category Episode Date [id number] [employer] Time Episode ATR-6510 [employer] Identifier Episode Type AT/AF [employer] Category Episode Date [id number] [employer] Time Episode V-1530 [employer] Identifier Episode Type [place] [employer] Category Episode Date [id number] [employer] Time Episode Duration 15 s [employer]IC Episode V-1529 [employer] Identifier Episode Type VT [employer] Category Episode Date [id number] [employer] Time Episode Duration 14 s [employer]IC Episode V-1528 [employer] Identifier Episode Type VT [employer] Category Episode Date [id number] [employer] Time Episode Duration 15 s [employer]IC Episode V-1527 [employer] Identifier Episode Type VT [employer] Category Episode Date [id number] [employer] Time Episode Duration 14 s [employer]IC Episode V-1526 [employer] Identifier Episode Type VT [employer] Category Episode Date [id number] [employer] Time Episode Duration 14 s [employer]IC Episode V-1525 [employer] Identifier Episode Type VT [employer] Category Episode Date [id number] [employer] Time Episode Duration 15 s [employer]IC Episode V-1524 [employer] Identifier Episode Type VT [employer] Category Episode Date [id number] [employer] Time Episode Duration 40 s [employer]IC Episode V-1523 [employer] Identifier Episode Type VT [employer] Category Episode Date [id number] [employer] Time Episode Duration 16 s MED[employer]IC Episode V-1522 [employer] Identifier Episode Type VT [employer] Category Episode Date [id number] [employer] Time Episode Duration 15 s [employer]IC Episode V-1521 [employer] Identifier Episode Type [place] [employer] Category Episode Date [id number] [employer] Time Episode Duration 14 s [employer] Episode ATR-6509 [employer] Identifier Episode Type AT/AF [employer] Category Episode Date [id number] [employer] Time Episode Duration 1,020,750 s [employer] Episode ATR-6508 [employer] Identifier Episode Type AT/AF [employer] Category Episode Date [id number] [employer] Time Episode Duration 2,246,835 s [employer] Episode ATR-6507 [employer] Identifier Episode Type AT/AF [employer] Category Episode Date [id number] [employer] Time Episode Duration 30 s [employer] Anatomical Region Laterality Modality Other Specimen (Source) Anatomical Collection Method Collection Time Re ceived Time Location / / Volume Laterality 06/25/2019 5:40 AM CDT Narrative 07/01/2019 8:21 AM CDT [employer] L121 Essentio EL (D) Remote PPM Device CheckAP: 0%QUALITY TECHNICIAN FIBERGLASS: 62%Mode: DDDRPresenting Rhythm: Afib wit h QUALITY TECHNICIAN FIBERGLASS & VSHeart Rate: adequate heart rates per [...] situ documented in this encounter Care Teams Photocopy Operator Relationship Specialty Start Date End Date Slava Hernandez PA-C PCP - General Physician Bowling Ball Assembler 07/02/18 06/29/21 [facility] [address] [place] [address] documented as of this encounter
--- OUTSIDE RECORDS SUMMARY | 2022-08-22 06:55 | XMS_ITS | Encounter Summary ---
:1940 Author Organization [place] Address [address] [facility] [place] [address] Care Team Providers Name Role Phone Slava Hernandez PA-C Primary Care Provider Encounter Details Date Type Department Care Team Description 12/12/2018 Telephone [facility] Heart Elda Johnson, Clinic [place] MACHINE BUNCH MAKER [facility] [address] [place] [address] [place] [address] [phone] Social History Tobacco Use Types Packs/Day Years [...] on 12/18 as he has OV at [facility] on the same day. Pt states that he will decide on the OV already scheduled on 01/20. Jing Telephone Encounter - Lacy Washington RN - 12/17/2018 1:50 PM CDT LM for pt that Dr Smith has 2 OV available in [place] tomorrow if pt is wanting to be [...] and repeat labs in 1 week--scheduled in [facility] on 12/19 at 9:45am 5) follow [...] 08/31/2022 Appointment Respiratory Therapy Timothy Smith MD [address] [place] [phone] (Wo rk) 09/28/2022 Lab Lab 09/28/2022 Office Visit Cardiology Timothy Smith MD [address] [place] [phone] Trudi Grayson APRN HARNESS PLACER [address] [phone] 11/16/2022 Ancillary Procedure Cardiology Timothy Smith MD [address] [place] [phone] (Wo rk) documented as of this encounter Visit Diagnoses Diagnosis 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
--- OUTSIDE RECORDS SUMMARY | 2022-08-22 06:55 | XMS_ITS | Encounter Summary ---
:1940 Author Organization [place] Address [address] [place] [address] Care Team Providers Name Role Phone Slava Hernandez PA-C Primary Care Provider Encounter Details Date Type Department Care Team Description 01/22/2019 [facility] Heart [facility] [place] fibrillation (H) [address] [facility] [address] [place], [place] [phone] Social History Tobacco Use Types Packs/Day Years Used Date Smoking Tobacco: Never Smokeless Tobacco: Never Alcohol Use Standard Drinks/Week Comments No 0 (1 standard drink = 0.6 oz pure alcoho l) Sex Assigned at Date Recorded Not on file documented as of this encounter Plan of Treatment Upcoming Encounters Date Type Specialty Care Team Description 08/31/2022 Appointment Respiratory Therapy Timothy Smith MD [address] [place] [phone] (Wo rk) 09/28/2022 Lab Lab 09/28/2022 Office Visit Cardiology Timothy Smith MD [address] [place] [phone] Trudi Grayson APRN ESCAPEMENT MAKER [address] [id number] 11/16/2022 Ancillary Procedure Cardiology Timothy Smith MD [address] [place] [address] (Wo rk) documented as of this encounter Procedures Procedure Name Priority Date/Time Associated Diagnosis Comme nts BASIC METABOLIC STAT 01/22/2019 9:14 AM Persistent atrial R esults for this PANEL CDT fibrillation (H) procedure a re in the results section. documented in this encounter Results (ABNORMAL) Basic metabolic panel (01/22/2019 9:14 AM CDT) Analysis Performed At [facility] Time Signature Sodium 140 133 - 144 01/22/2019 [facility] mmol/L 10:08 AM [facility] Potassium 4.1 3.4 - 5.3 01/22/2019 [facility] mmol/L 10:08 AM [facility] Chloride 105 94 - 109 01/22/2019 [facility] mmol/L 10:08 AM [facility] Carbon Dioxide 31 20 - 32 01/22/2019 [facility] mmol/L 10:17 AM [facility] Anion Gap 4 3 - 14 01/22/2019 [facility] mmol/L 10:17 AM [facility] Glucose 102 (H) 70 - 99 01/22/2019 [facility] 10:17 AM [facility] Urea Nitrogen 37 (H) 7 - 30 01/22/2019 [facility] mg/dL 10:17 AM [facility] Creatinine 1.63 (H) 0.66 - 01/22/2019 [facility] 1.25 mg/dL 10:17 AM [facility] GFR Estimate 39 (L) >60 01/22/2019 [facility] mL/min/{1. 10:17 AM [facility] 73_m2} [facility] Comment: Non GFR Calc Starting 09/17/2018, serum creatinine ba sed estimated GFR (eGFR) will be calculated using the Chronic Kidney Dise [facility] Epidemiology Collaboration (CKD-EPI) equation. GFR Estimate If 45 (L) >60 mL/min/{1.73_m2} 01/22/2019 10:17 AM [facility] Comment: GFR Calc Starting 09/17/2018, serum creatinine ba sed estimated GFR (eGFR) will be calculated using the Chronic Kidney Dise [facility] Epidemiology Collaboration (CKD-EPI) equation. Calcium 9.7 8.5 - 10.1 mg/dL 01/22/2019 10:17 AM CDT [facility] Specimen Anatomical Collection Method Collection Time Receive d Time (Source) Location / / Volume Laterality Blood specimen 01/22/2019 9:14 AM 019 9:17 (specimen) CDT AM CDT Timothy Smith MD LAB - BLOOD ORDERABLES Performing Organization Address City/State/ZIP Code Phon e Number [place] [address] [address] [place], [place] [address] [phone] [facility] [address] [place], [place] [address] [place] [address] documented in this encounter Visit Diagnoses Diagnosis Persistent atrial fibrillation (H) Atrial fibrillation documented in this encounter Care Teams Street Worker Relationship Specialty Start Date End Date Slava Hernandez PA-C PCP - General Physician Freight Car Cleaner 07/02/18 06/29/21 [facility] [address] [place] [address] documented as of this encounter
--- OUTSIDE RECORDS SUMMARY | 2022-08-22 06:55 | XMS_ITS | Encounter Summary ---
:1940 Author Organization [place] Address [address] [facility] [place] [address] Care Team Providers Name Role Phone Slava Hernandez PA-C Primary Care Provider Reason for Visit CV Testing - Closed Specialty Diagnoses / Procedures Referred By Contact Refer red To Contact Diagnoses Syncope and collapse Steven Canchola, Procedures Cardiac Device Check - Remote [address] [facility] [address] [place] [address] Referral ID Status Reason Start Date Expiration Date Visits Requ ested Visits Authorized [id number] Closed 12/10/2018 12/10/2019 1 1 Encounter Details Date Type Department Care Team Description 03/18/2019 Ancillary [facility] Steven Canchola Sync ope and Procedure [facility] MD Jose collapse [facility] [address] [facility] [address] [facility] [address] [place] [address] [place], [place] [phone] (Wo rk) [address] [phone] Social History Tobacco Use Types Packs/Day Years Used Date Smoking Tobacco: Never Smokeless Tobacco: Never Alcohol Use Standard Drinks/Week Comments No 0 (1 standard drink = 0.6 oz pure alcoho l) Sex Assigned at Date Recorded Not on file documented as of this encounter Plan of Treatment Upcoming Encounters Date Type Specialty Care Team Description 08/31/2022 Appointment Respiratory Therapy Timothy Smith MD [address] [place] [address] (Wo rk) 09/28/2022 Lab Lab 09/28/2022 Office Visit Cardiology Timothy Smith MD [address] [place] [address] Trudi Grayson, FLACO ENVIRONMENTAL SERVICES TECHNICIAN [address] [place] [address] 11/16/2022 Ancillary Procedure Cardiology Timothy Smith MD [address] [place] [phone] (Wo rk) documented as of this encounter [...] Range Method Time At Signature Date Time [id number] MEDTRONIC Interrogation Session Implantable [place] [employer]TRONIC Pulse Generator Food Products Sales Representative Implantable L121 ESSENTIO EL MEDTRONIC Pulse Generator Model Implantable [id number] MEDTRONIC Pulse Generator Serial Number Type Remote MEDTRONIC Interrogation Session Clinic Name [facility] MEDTRONIC Implantable Pacemaker MEDTRONIC Pulse Generator Type Implantable [id number] MEDTRONIC Pulse Generator Implant Date Implantable Lead [facility] [employer]O RAUL Food Products Sales Representative Implantable Lead 2087TC Tendril MEDTRONI C Model STS Implantable Lead [id number] MEDTRONIC Serial Number Implantable Lead [id number] MEDTRONIC Implant Date Implantable Lead Bipolar Lead MEDTRONIC Polarity Type Implantable Lead UNKNOWN MEDTRONIC Location Detail 1 Implantable Lead Right Atrium MEDTRONIC Location Implantable Lead [facility] [employer] RAUL Food Products Sales Representative Implantable Lead 2087TC Tendril MEDTRONI C Model STS Implantable Lead [id number] [employer]ONIC Serial Number Implantable Lead [id number] MEDTRONIC [...] MEDTRONIC Pacing Threshold Pulse Width Battery Date [id number] MEDTRONIC Time of Measurements Battery Status Beginning of MEDTRONIC Service Battery 114 mo MEDTRONIC Remaining Longevity Battery 100 % MEDTRONIC Remaining Percentage Brandon Statistic MEDTRONIC Date Time Start Brandon Statistic MEDTRONIC Date Time End Brandon Statistic 0 % MEDTRONIC RA Percent Paced Brandon Statistic 60 % MEDTRONIC RV Percent Paced Atrial Tachy MEDTRONIC Statistic Date Time Start Atrial Tachy [id number] MEDTRONIC Statistic Date Time End Atrial Tachy 100 % MEDTRONIC Statistic AT/AF [place] Percent Episode 1 MEDTRONIC Statistic Recent Count [...] [place] MEDTRONIC Statistic Vendor Type Category Episode [id number] MEDTRONIC Statistic Recent Date Time Start Episode [id number] MEDTRONIC Statistic Recent Date Time End Episode [id number] MEDTRONIC Statistic Recent Date Time Start Episode [id number] MEDTRONIC Statistic Recent Date Time End Episode [id number] MEDTRONIC Statistic Recent Date Time Start Episode [id number] MEDTRONIC Statistic Recent Date Time End Episode [id number] MEDTRONIC Statistic Recent Date Time Start Episode [id number] MEDTRONIC Statistic Recent Date Time End Episode APM-91 MEDTRONIC Identifier Episode Type Periodic EGM MEDTRONIC Category Episode Date [id number] MEDTRONIC Time Episode [id number]-[id number] MEDTRONIC Identifier Episode Type Other MEDTRONIC Category Episode Date [id number] MEDTRONIC Time Episode V-1456 MEDTRONIC Identifier Episode Type [place] MEDTRONIC Category Episode Date [id number] MEDTRONIC Time Episode Duration 22 s MEDTRONIC Episode V-1455 MEDTRONIC Identifier Episode Type SVT MEDTRONIC Category Episode Vendor SVT MEDTRONIC Type Category Episode Date [id number] MEDTRONIC Time Episode Duration 110 s MEDTRONIC Episode V-1454 MEDTRONIC Identifier Episode Type [place] MEDTRONIC Category Episode Date [id number] MEDTRONIC Time Episode Duration 15 s MEDTRONIC Episode V-1453 MEDTRONIC Identifier Episode Type VT MEDTRONIC Category Episode Date [id number] MEDTRONIC Time Episode Duration 21 s MEDTRONIC Episode V-1452 MEDTRONIC Identifier Episode Type VT MEDTRONIC Category Episode Date [id number] MEDTRONIC Time Episode Duration 21 s MEDTRONIC Episode V-1451 MEDTRONIC Identifier Episode Type [place] MEDTRONIC Category Episode Date [id number] MEDTRONIC Time Episode Duration 15 s MEDTRONIC Episode V-1450 MEDTRONIC Identifier Episode Type [place] MEDTRONIC Category Episode Date [id number] MEDTRONIC Time Episode Duration 17 s MEDTRONIC Episode V-1449 MEDTRONIC Identifier Episode Type VT MEDTRONIC Category Episode Date [id number] MEDTRONIC Time Episode Duration 13 s MEDTRONIC Episode V-1448 MEDTRONIC Identifier Episode Type [place] MEDTRONIC Category Episode Date [id number] MEDTRONIC Time Episode Duration 19 s MEDTRONIC Episode ATR-6506 MEDTRONIC Identifier Episode Type AT/AF MEDTRONIC Category Episode Date [id number] MEDTRONIC Time Episode V-1447 MEDTRONIC Identifier Episode Type [place] MEDTRONIC Category Episode Date [id number] MEDTRONIC Time Episode Duration 17 s MEDTRONIC Episode V-1446 MEDTRONIC Identifier Episode Type [place] MEDTRONIC Category Episode Date [id number] MEDTRONIC Time Episode Duration 14 s MEDTRONIC Anatomical Region Laterality Modality Other Specimen (Source) Anatomical Collection Method Collection Time Re ceived Time Location / / Volume Laterality 03/18/2019 5:41 AM CDT Narrative 03/19/2019 2:34 PM CDT [employer] L121 [place] EL (D) Remote PPM Device CheckAP: 0%JUKEBOX COIN COLLECTOR: 60%Mode: DDDRPresenting Rhythm: Chronic Afib and VPHeart [...] collapse documented in this encounter Care Teams Dry Kiln Operator Helper Relationship Specialty Start Date End Date Slava Hernandez PA-C PCP - General Physician Trimmer Operator Three Knife 07/02/18 06/29/21 [facility] [address] [place] [address] documented as of this encounter
--- OUTSIDE RECORDS SUMMARY | 2022-08-22 06:55 | XMS_ITS | Encounter Summary ---
:1940 Author Organization [place] Address [facility] [place] [address] Care Team Providers Name Role Phone Slava Hernandez PA-C Primary Care Provider Reason for Visit Reason Onset Date Comments Refill Request 01/10/2019 torsemide Encounter Details Date Type Department Care Team Description 01/10/2019 Refill [facility] Heart Temitope Tamayo, Refill Request Clinic Shilpi EL (torsemide) [address] [facility] [address] [place] [address] Social [...] months versus 30 days. Sent script to [facility] per request. SIENNA Okeefe documented in this encounter Plan of Treatment Upcoming Encounters Date Type Specialty Care Team Description 08/31/2022 Appointment Respiratory Therapy Timothy Smith MD [address] [place] [phone] (Wo rk) 09/28/2022 Lab Lab 09/28/2022 Office Visit Cardiology Timothy Smith MD [address] [place] [phone] Trudi Grayson APRN FITNESS PLAN COORDINATOR [address] [place] [address] 11/16/2022 Ancillary Procedure Cardiology Timothy Smith MD [address] [place] [id number] (Wo rk) documented as of this encounter Visit Diagnoses Diagnosis Localized edema Edema documented in this encounter Care Teams Toy Consultant Relationship Specialty Start Date End Date Slava Hernandez PAIlanaC PCP - General Physician Sebd Teacher 07/02/18 06/29/[address] [facility] [address] [place] [address] documented as of this encounter
--- OUTSIDE RECORDS SUMMARY | 2022-08-22 06:55 | XMS_ITS | Encounter Summary ---
:1940 Author Organization [place] Address [address] [facility] [place] [address] Care Team Providers Name Role Phone Slava [...] [address] [place] [address] (Wo rk) 09/28/2022 Lab Lab 09/28/2022 Office Visit Cardiology Timothy Smith MD [address] [place] [address] Trudi Grayson APRN OUTPATIENT ADMITTING CLERK [address] [place] [address] 11/16/2022 Ancillary Procedure Cardiology Timothy Smith MD [address] [place] [address] (Wo rk) documented as of this encounter Visit Diagnoses Not on filedocumented in this encounter Care Teams Senior Scientist Relationship Specialty Start Date End Date Slava Hernandez PA-C PCP - General Physician Engine Mechanic 07/02/18 06/29/21 [facility] [address] [place] [address] documented as of this encounter
--- OUTSIDE RECORDS SUMMARY | 2022-08-22 06:55 | XMS_ITS | Encounter Summary ---
:1940 Author Organization [place] Address [facility] [place] [address] Care Team Providers Name Role Phone Slava Hernandez PA-C Primary Care Provider Reason for Visit Reason Comments Follow Up 1 week Encounter Details Date Type Department Care Team Description 11/28/2018 Office Visit [facility] Elda Johnson ed edema (Primary Dx); Heart Clinic [place]pi Montoya APRN SUPERVISOR REFRACTORY PRODUCTS Ischemic cardiomyopathy; [address] [facility] [address] 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) [facility] [address] [place] [address] [place] [address] [phone] Social History Tobacco Use Types Packs/Day Years Used Date Smoking Tobacco: Never Smokeless Tobacco: Never Alcohol Use Standard Drinks/Week Comments No 0 (1 standard drink = 0.6 oz pure alcoho l) Sex Assigned at Date Recorded Not on file documented as of this encounter Last Filed Vital Signs Vital Sign Reading Time Taken Comments Blood Pressure 104/61 11/28/2018 10:40 AM ART THERAPY SPECIALIST Pulse 54 11/28/2018 10:40 AM ART THERAPY SPECIALIST Temperature - - Respiratory Rate - - Oxygen Saturation - - Inhaled Oxygen Concentration - - Weight 140.6 kg (310 lb) 11/28/2018 10:40 AM ART THERAPY SPECIALIST Height 180.3 cm (5' 10.98) 11/28/2018 10:40 AM ART THERAPY SPECIALIST Body Mass Index 43.26 11/28/2018 10:40 AM ART THERAPY SPECIALIST documented in this encounter Progress Notes Alex Elda Montoya, FLACO SUPERVISOR REFRACTORY PRODUCTS - 11/28/2018 10:50 AM CST HPI: Haris [...] age++) 4. Sinus node dysfunction s/p dual-chamber [employer] pacemaker 01/2016. 5. Coronary disease status [...] patient declined. Diagnostics: EKG (11/15/2018) revealed intermittent STRAIGHTEDGE MAN @ 76 bpm with 2 PVCs of [...] any questions or concerns. Elda Johnson APRN, SUPERVISOR REFRA[employer]ORY PRODUCTS This note was completed in part using [employer] voice recognition software. Although reviewed after completion, [...] Other Topics Concern ??? Parent/sibling w/ CABG, CA or angioplasty before 65F 55M? No ??? [...] No referring provider defined for this encounter. THERAPY SPECIALIST documented in this encounter Plan of Treatment Upcoming Encounters Date Type Specialty Care Team Description 08/31/2022 Appointment Respiratory Therapy Timothy Smith MD [address] [place] [id number] (Wo rk) 09/28/2022 Lab Lab 09/28/2022 Office Visit Cardiology Timothy Smith MD [address] [place] [address] Trudi Grayson APRN SUPERVISOR REFRACTORY PRODUCTS [address] [id number] 11/16/2022 Ancillary Procedure Cardiology Timothy Smith MD [address] [place], [place] [address] (Wo rk) documented as of this encounter Results (ABNORMAL) Basic metabolic panel (12/12/2018 9:12 AM [facility]) Analysis Performed At Patho logist Time Signature Sodium 143 133 - 144 12/12/2018 [facility] mmol/L 9:51 AM [facility] Potassium 4.2 3.4 - 5.3 12/12/2018 [facility] mmol/L 9:51 AM [facility] Chloride 106 94 - 109 12/12/2018 [place] mmol/L 9:51 AM [facility] Carbon Dioxide 31 20 - 32 12/12/2018 [place] mmol/L 9:56 AM [facility] Anion Gap 6 3 - 14 12/12/2018 [place] mmol/L 9:56 AM [facility] Glucose 101 (H) 70 - 99 12/12/2018 [place] mg/dL 9:56 AM [facility] Urea Nitrogen 55 (H) 7 - 30 12/12/2018 [place] mg/dL 9:56 AM [facility] Creatinine 2.20 (H) 0.66 - 12/12/2018 [facility] 1.25 mg/dL 9:56 AM [facility] GFR Estimate 27 (L) >60 12/12/2018 [place] mL/min/{1. 9:56 AM [facility] 73_m2} [facility] Comment: Non GFR Calc Starting 09/17/2018, serum creatinine ba sed estimated GFR (eGFR) will be calculated using the Chronic Kidney Dise [facility] Epidemiology Collaboration (CKD-EPI) equation. GFR Estimate If 32 (L) >60 mL/min/{1.73_m2} 12/12/2018 9: 56 AM [facility] Comment: GFR Calc Starting 09/17/2018, serum creatinine ba sed estimated GFR (eGFR) will be calculated using the Chronic Kidney Dise [facility] Epidemiology Collaboration (CKD-EPI) equation. Calcium 8.8 8.5 - 10.1 mg/dL 12/12/2018 9:56 AM [facility] Specimen Anatomical Collection Method Collection Time Receive d Time (Source) Location / / Volume Laterality Blood specimen 12/12/2018 9:12 AM 019 9:14 (specimen) CDT AM CDT Elda Johnson APRN SUPERVISOR [employer] LAB - BLOOD ORDERABL ES Performing Organization Address City/State/ZIP Code Phon e Number [place] [address] [address] [place] [address] [facility] [address] [phone] documented in this encounter Visit Diagnoses Diagnosis Localized edema - Primary Edema Ischemic cardiomyopathy Other specified forms of chronic ischemi c heart disease 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
--- OUTSIDE RECORDS SUMMARY | 2022-08-22 06:55 | XMS_ITS | Encounter Summary ---
:1940 Author Organization [place] Address [address] [facility] [address] Care Team Providers Name Role Phone Slava Hernandez PA-C Primary Care Provider Reason for Referral - Closed Specialty Diagnoses / Procedures Referred By Contact Refer red To Contact Diagnoses Persistent atrial fibrillation (H) Ankur Smith MD [address] [place] [address] Referral ID Status Reason Start Date Expiration Date Visits Requ ested Visits Authorized [id number] Closed 01/01/2019 01/01/2020 1 1 Reason for Visit Reason Comments Edema Cardiomyopathy Encounter Details Date Type Department Care Team Description 01/01/[address] [facility] Ankur Smith MD ACS (acute coronary syndrome) (H) (Prima ry Dx); [facility] [place] [address] Palpitations; [address] Persistent atrial fibrillation (H) [facility] [address] [place] [address] [place] [phone] Social History Tobacco Use Types Packs/Day Years [...] have rapid ventricular rate. cc: HANK Handley [facility] [address] [place] [address] ANKUR SMITH MD MT: CAITLYN Name: RADHA VILLA Account: [id number] : 1940 Service Date: 01/01/2019 Document: [id number] Ankur Smith MD - 01/01/2019 11:15 AM [...] on phone: None Gets together: None Attends methodist service: None Active member of club or [...] x 3 CC Slava Hernandez PA-C [facility] [id number] [place] [address] documented in this encounter Plan of Treatment Upcoming Encounters Date Type Specialty Care Team Description 08/31/2022 Appointment Respiratory Therapy Ankur Smith MD [address] [place] [phone] (Wo rk) 09/28/2022 Lab Lab 09/28/2022 Office Visit Cardiology Ankur Smith MD [address] [place] [phone] Trudi Grayson APRN LIGHT FIXTURE SERVICER [address] [address] 11/16/2022 Ancillary Procedure Cardiology Ankur Smith MD [address] [place] [address] (Wo rk) Scheduled Referrals Name Type Priority Associated Diagnoses Order S chedule Follow-Up with Referral Routine Persistent atrial Expected : 01/15/2019 Cardiac Advanced fibrillation (H) (Approx imate), Practice Provider Expires: 0 01/01/2020 documented as of this encounter Results (ABNORMAL) Basic metabolic panel (01/22/2019 9:14 AM [facility]NOTE 2[facility] Analysis Performed At [facility] Time Signature Sodium 140 133 - 144 01/22/2019 [place] mmol/L 10:08 AM [facility] Potassium 4.1 3.4 - 5.3 01/22/2019 [place] mmol/L 10:08 AM [facility] Chloride 105 94 - 109 01/22/2019 [place] mmol/L 10:08 AM [facility] Carbon Dioxide 31 20 - 32 01/22/2019 [place] mmol/L 10:17 AM [facility] Anion Gap 4 3 - 14 01/22/2019 [place] mmol/L 10:17 AM [facility] Glucose 102 (H) 70 - 99 01/22/2019 [place] mg/dL 10:17 AM [facility] Urea Nitrogen 37 (H) 7 - 30 01/22/2019 [place] mg/dL 10:17 AM [facility] Creatinine 1.63 (H) 0.66 - 01/22/2019 [facility] 1.25 mg/dL 10:17 AM [facility] GFR Estimate 39 (L) >60 01/22/2019 [place] mL/min/{1. 10:17 AM [facility] 73_m2} HOSP[facility] Comment: Non GFR Calc Starting 09/17/2018, serum creatinine ba sed estimated GFR (eGFR) will be calculated using the Chronic Kidney Dise [facility] Epidemiology Collaboration (CKD-EPI) equation. GFR Estimate If 45 (L) >60 mL/min/{1.73_m2} 01/22/2019 10:17 AM [facility] Comment: GFR Calc Starting 09/17/2018, serum creatinine ba sed estimated GFR (eGFR) will be calculated using the Chronic Kidney Dise [facility] Epidemiology Collaboration (CKD-EPI) equation. Calcium 9.7 8.5 - 10.1 mg/dL 01/22/2019 10:17 AM CDT [facility] Specimen Anatomical Collection Method Collection Time Receive d Time (Source) Location / / Volume Laterality Blood specimen 01/22/2019 9:14 AM 019 9:17 (specimen) CDT AM CDT Ankur Smith MD LAB - BLOOD ORDERABLES Performing Organization Address City/State/ZIP Code Phon e Number [place] [address] [address] [place] [address] [facility] [address] [phone] documented in this encounter Visit Diagnoses Diagnosis ACS (acute coronary syndrome) (H) - Prim arnie Intermediate coronary syndrome Palpitations Persistent atrial fibrillation (H) Atrial fibrillation documented in this encounter Care Teams Forest Botany Instructor Relationship Specialty Start Date End Date Slava Hernandez PA-C PCP - General Physician Cold Roller 07/02/18 06/29/21 [facility] [id number] [place] [address] documented as of this encounter
--- OUTSIDE RECORDS SUMMARY | 2022-08-22 06:55 | XMS_ITS | Encounter Summary ---
:1940 Author Organization [place] Address [address] [facility] [place] [address] Care Team Providers Name Role Phone Slava [...] [address] [place] [address] (Wo rk) 09/28/2022 Lab Lab 09/28/2022 Office Visit Cardiology Timothy Smith MD [address] [place] [address] Trudi Grayson APRN SYSTEMS MGR [address] [place] [address] 11/16/2022 Ancillary Procedure Cardiology Timothy Smith MD [address] [place] [address] (Wo rk) documented as of this encounter Visit Diagnoses Not on filedocumented in this encounter Care Teams Medical Claims Assistant Relationship Specialty Start Date End Date Slava Hernandez PA-C PCP - General Physician Quality And Reliability Engineer 07/02/18 06/29/[address] [facility] [address] [place] [address] documented as of this encounter
--- OUTSIDE RECORDS SUMMARY | 2022-08-22 06:55 | XMS_ITS | Encounter Summary ---
:1940 Author Organization [place] Address [address] [facility] [place] [address] Care Team Providers Name Role Phone Slava Hernandez PA-C Primary Care Provider Encounter Details Date Type Department Care Team Description 01/23/2019 Documentation Only [facility] Elda Johnson [facility] [place] Montoya APRN SPECIAL EDUCATION SUPERINTENDENT [address] [facility] [address] [facility] [address] [place] [address] [place] [address] [phone] Social History Tobacco Use Types Packs/Day Years [...] [address] [place] [address] (Wo rk) 09/28/2022 Lab Lab 09/28/2022 Office Visit Cardiology Timothy Smith MD [address] [place] [address] Trudi Grayson APRN CNP [address] [place] [address] 11/16/2022 Ancillary Procedure Cardiology Timothy Smith MD [address] [place] [address] (Wo rk) documented as of this encounter Visit Diagnoses Not on filedocumented in this encounter Care Teams Loop Tacker Relationship Specialty Start Date End Date Slava Hernandez PA-C PCP - General Physician Wrestling Coach 07/02/18 06/29/21 [facility] [address] [place] [address] documented as of this encounter
--- OUTSIDE RECORDS SUMMARY | 2022-08-22 06:55 | XMS_ITS | Encounter Summary ---
:1940 Author Organization [place] Address [address] [place] [address] Care Team Providers Name Role Phone Slava [...] Respiratory Therapy Timothy Smith MD [address] [place] [address] (Wo rk) 09/28/2022 Lab Lab 09/28/2022 Office Visit Cardiology Timothy Smith MD [address] [place] [address] Trudi Grayson APRN ASSISTANT BOYS TRACK COACH [address] [address] 11/16/2022 Ancillary Procedure Cardiology Timothy Smith MD [address] [place] [address] (Wo rk) documented as of this encounter Visit Diagnoses Not on filedocumented in this encounter Care Teams Security Compliance Engineer Relationship Specialty Start Date End Date Slava Hernandez PA-C PCP - General Physician Nurse Ldr 07/02/18 06/29/21 [facility] [address] [place] [address] documented as of this encounter
--- OUTSIDE RECORDS SUMMARY | 2022-08-22 06:55 | XMS_ITS | Encounter Summary ---
:1940 Author Organization [place] Address [address] [facility] [place] [address] Care Team Providers Name Role Phone Slava Hernandez PA-C Primary Care Provider Encounter Details Date Type Department Care Team Description 12/12/2018 [facility] [address] [place] [address] Social History Tobacco Use [...] Appointment Respiratory Therapy Timothy Smith MD [address] [place] [id number] (Wo rk) 09/28/2022 Lab Lab 09/28/2022 Office Visit Cardiology Timothy Smith MD [address] [place] [phone] Trudi Grayson APRN MAINTENANCE TEAM LEADER [address] [id number] 11/16/2022 Ancillary Procedure Cardiology Timothy Smith MD [address] [place] [address] (Wo rk) documented as of this encounter [...] - 144 12/12/2018 [facility] mmol/L 9:51 AM [facility] Potassium 4.2 3.4 - 5.3 12/12/2018 [facility] mmol/L 9:51 AM [facility] Chloride 106 94 - 109 12/12/2018 [facility] mmol/L 9:51 AM [facility] Carbon Dioxide 31 20 - 32 12/12/2018 [facility] mmol/L 9:56 AM [facility] Anion Gap 6 3 - 14 12/12/2018 [facility] mmol/L 9:56 AM [facility] Glucose 101 (H) 70 - 99 12/12/2018 [facility] mg/dL 9:56 AM [facility] Urea Nitrogen 55 (H) 7 - 30 12/12/2018 [facility] mg/dL 9:56 AM [facility] Creatinine 2.20 (H) 0.66 - 12/12/2018 [facility] 1.25 mg/dL 9:56 AM [facility] GFR Estimate 27 (L) >60 12/12/2018 [place] mL/min/{1. 9:56 AM [facility] 73_m2} [facility]OSPITAL Comment: Non GFR Calc Starting 09/17/2018, serum creatinine ba sed estimated GFR (eGFR) will be calculated using the Chronic Kidney Dise [facility] Epidemiology Collaboration (CKD-EPI) equation. GFR Estimate If 32 (L) >60 mL/min/{1.73_m2} 12/12/2018 9: [address] [facility] Comment: GFR Calc Starting 09/17/2018, serum creatinine ba sed estimated GFR (eGFR) will be calculated using the Chronic Kidney Dise [facility] Epidemiology Collaboration (CKD-EPI) equation. Calcium 8.8 8.5 - 10.1 mg/dL 12/12/2018 9:56 AM CDT [facility] Specimen Anatomical Collection Method Collection Time Receive d Time (Source) Location / / Volume Laterality Blood specimen 12/12/2018 9:12 AM 019 9:14 (specimen) CDT AM CDT Elda Johnson APRN MAINTENANCE TEAM LEADER LAB - BLOOD ORDERABL ES Performing Organization Address City/State/ZIP Code Phon e Number [place] [address] [address] [place] [address] [facility] [address] [phone] documented in this encounter Visit Diagnoses Diagnosis Ischemic cardiomyopathy Other specified forms of chronic ischemi c heart disease documented in this encounter Care Teams Line Inspector Relationship Specialty Start Date End Date Slava Hernandez PA-C PCP - General Physician Histology Technician 07/02/18 06/29/[address] [address] documented as of this encounter
--- OUTSIDE RECORDS SUMMARY | 2022-08-22 06:55 | XMS_ITS | Encounter Summary ---
:1940 Author Organization [place] Address [address] [facility] [address] Care Team Providers Name Role Phone Slava Hernandez PA-C Primary Care Provider Reason for Visit Reason Comments CORE Enrollment Encounter Details Date Type Department Care Team Description 02/03/2019 Office Visit [facility] Arron Johnson APRN SCRAP WHEELER [address] [place] [address] Chronic systolic Heart Clinic Lina Noriega APRN SCRAP WHEELER [address] [facility] [address] [place], [place] [address] congestive heart Rugby failure (H) [address] [facility] [address] [place] [address] Social History Tobacco Use Types [...] for any questions or concerns Mon-Fri 8am-4pm: [phone] For concerns after hours: [phone] Medication changes: No changes Plan from today: [...] 3. Sinus node dysfunction: Status post dual-chamber [employer] pacemaker 01/2016. 4. Coronary disease: Status [...] AQUILINO MT: PERLITA Name: RADHA VILLA Account: [id number] : 1940 Service Date: 02/03/2019 Document: [id number] Lina Noriega APRN CNP - 02/03/2019 10:50 AM CDT HPI and Plan: See [id number] No orders of the defined types were [...] Other Topics Concern ??? Parent/sibling w/ CABG, NH or angioplasty before 65F 55M? No ??? [...] Oriented x 3 CC Elda Johnson APRN SCRAP WHEELER [address] [place] [address] documented in this encounter Plan of Treatment Upcoming Encounters Date Type Specialty Care Team Description 08/31/2022 Appointment Respiratory Therapy Timothy Smith MD [address] [place], [place] [address] (Wo wade) 09/28/2022 Lab Lab 09/28/2022 Office Visit Cardiology Timothy Smith MD [address] [place] [address] Trudi Grayson APRN SCRAP WHEELER [address] [place] [address] 11/16/2022 Ancillary Procedure Cardiology Timothy Smith MD [address] [place] [address] (Wo rk) documented as of this encounter Visit Diagnoses Diagnosis Chronic systolic congestive heart failur e (H) Chronic systolic heart failure documented in this encounter Care Teams Channel Business Manager Relationship Specialty Start Date End Date Slava Hernandez PA-C PCP - General Physician Ton Container Shipper 10/2/18 9/29/21 [facility] [address] [place], [place] [phone] documented as of this encounter
--- OUTSIDE RECORDS SUMMARY | 2022-08-22 06:56 | XMS_ITS | Encounter Summary ---
:1940 Author Organization [place] Address [address] [facility] [place] [address] Care Team Providers Name Role Phone Slava Hernandez PA-C Primary Care Provider Encounter Details Date Type Department Care Team Description 11/18/2018 Documentation Only [facility] [place] Torres PA-C [address] [facility] [address] [facility] [address] [place] [place] [phone] [place] [phone] (Wo rk) Social History Tobacco Use Types [...] but reschedule to if it's snowing tomorrow. OUT NANNY Temitope Tamayo RN - 11/18/2018 1:41 PM CST Message left for patient to review lab work and recommendations per HANK Jacobo. Awaiting return call. SIENNA Okeefe OUT NANNY Temitope Tamayo RN - 11/18/2018 1:41 PM [...] to follow up next week. Patient requesting [facility]. Appointment scheduled for 11/27 with Elda Johnson. Instructed patient to call clinic if he had any questions or concerns. Patient provided verbal understanding of above. SIENNA Okeefe OUT NANNY documented in this encounter Plan of Treatment Upcoming Encounters Date Type Specialty Care Team Description 08/31/2022 Appointment Respiratory Therapy Timothy Smith MD [address] [place] [phone] (Wo wade) 09/28/2022 Lab Lab 09/28/2022 Office Visit Cardiology Timothy Smith MD [address] [place] [address] Trudi Grayson APRN CNP [address] [address] 11/16/2022 Ancillary Procedure Cardiology Timothy Smith MD [address] [place] [address] (Wo rk) documented as of this encounter Visit Diagnoses Not on filedocumented in this encounter Care Teams Remanufacturing Technician Relationship Specialty Start Date End Date Slava Hernandez PA-C PCP - General Physician Tool And Die Supervisor 07/02/18 06/29/21 [facility] [address] [place] [address] documented as of this encounter
--- OUTSIDE RECORDS SUMMARY | 2022-08-22 06:56 | XMS_ITS | Encounter Summary ---
:1940 Author Organization [place] Address [facility] [place] [address] Care Team Providers Name Role Phone Mary Slava Estrella PA-C Primary Care Provider Encounter Details Date Type Department Care Team Description 09/27/2018 Telephone [facility] Heart Zarina Smith MD [facility] [address] [place] [address] [facility] [address] [place] [address] [phone] Social History Tobacco Use Types Packs/Day Years [...] call ed to let pharmacy know-yvette cummins E MACHINE OPERATOR documented in this encounter Plan of Treatment Upcoming Encounters Date Type Specialty Care Team Description 08/31/2022 Appointment Respiratory Therapy Timothy Smith MD [address] [place], [place] [address] (Wo rk) 09/28/2022 Lab Lab 09/28/2022 Office Visit Cardiology Timothy Smith MD [address] [place] [phone] Trudi Grayson, FLACO FOOD STYLIST [address] [address]56[address] 11/16/2022 Ancillary Procedure Cardiology Timothy Smith MD [address] [place] [phone] (Wo rk) documented as of this encounter Visit Diagnoses Not on filedocumented in this encounter Care Teams Crna Relationship Specialty Start Date End Date Slava Hernandez PAIlanaC PCP - General Physician Special Events Manager 07/02/18 06/29/21 [facility] [address] [place] [address] documented as of this encounter
--- OUTSIDE RECORDS SUMMARY | 2022-08-22 06:56 | XMS_ITS | Encounter Summary ---
:1940 Author Organization [place] Address [address] [facility] [place] [address] Care Team Providers Name Role Phone Slava [...] [address] [place] [address] (Wo rk) 09/28/2022 Lab Lab 09/28/2022 Office Visit Cardiology Timothy Smith MD [address] [place] [address] Trudi Grayson APRN GROUP BURNER MACHINE [address] [address] 11/16/2022 Ancillary Procedure Cardiology Timothy Smith MD [address] [place] [address] (Wo rk) documented as of this encounter Visit Diagnoses Not on filedocumented in this encounter Care Teams Baking Powder Mixer Relationship Specialty Start Date End Date Slava Hernandez PA-C PCP - General Physician Rag Grader 07/02/18 06/29/21 [facility] [address] [place] [address] documented as of this encounter
--- OUTSIDE RECORDS SUMMARY | 2022-08-22 06:56 | XMS_ITS | Encounter Summary ---
:1940 Author Organization [place] Address [facility] [place] [address] Care Team Providers Name Role Phone Mary Slava Estrella PA-C Primary Care Provider Reason for Visit Reason Comments Pacemaker Check PPM Latitude NXT Encounter Details Date Type Department Care Team Description 08/27/2018 [facility] Health[facility] Pac emaker Check (PPM Visit [facility] [place] Latitude NXT) [address] [place] [address] [address] [place] [address] Social History Tobacco Use Types Packs/Day Years Used Date Smoking Tobacco: Never Smokeless Tobacco: Never Alcohol Use Standard Drinks/Week Comments No 0 (1 standard drink = 0.6 oz pure alcoho l) Sex Assigned at Date Recorded Not on file documented as of this encounter Progress Notes Sary Riojas - 08/27/2018 4:30 PM CST [employer] EL L121 (D) Remote PPM Device Check AP: 0% MANAGER CHINESE: 41% Mode: DDDR Presenting Rhythm: Afib with MANAGER CHINESE Heart Rate: histogram shows good rate variation [...] over the phone to pt. Mccoy CVT LESS SALES MANAGER documented in this encounter Plan of Treatment Upcoming Encounters Date Type Specialty Care Team Description 08/31/2022 Appointment Respiratory Therapy Timothy Smith MD [address] [place] [address] (Wo rk) 09/28/2022 Lab Lab 09/28/2022 Office Visit Cardiology Timothy Smith MD [address] [place] [address] Trudi Grayson APRN CNP [address] [place] [address] 11/16/2022 Ancillary Procedure Cardiology Timothy Smith MD [address] [place] [address] (Wo rk) documented as of this encounter Procedures Procedure Name Priority Date/Time Associated Diagnosis Comme [facility] Z PM DEVICE Routine 08/27/2018 10:09 AM Cardiac pacemaker in INTERROGATE REMOTE, UP WIRELESS SALES MANAGER situ TO 90 DAYS, LEAD/LEADLESS HC INTERR DEVICE EVAL Routine 08/27/2018 Cardiac pacemaker i n REMOTE, PM/LDLS PM/ICD, situ UP TO 90 DAYS documented in this encounter Results INTERROGATION DEVICE EVAL REMOTE, PACER/ICD (31362) (08/27/2018) Narrative This result has an attachment that is no t available. Steven Canchola MD PROCEDURES documented in this encounter Visit Diagnoses Diagnosis Cardiac pacemaker in situ - Primary documented in this encounter Care Teams Student Ambassador Relationship Specialty Start Date End Date Slava Hernandez PA-C PCP - General Physician Front Office Spec 07/02/18 06/29/[address] [facility] [address] [place] [address] documented as of this encounter
--- OUTSIDE RECORDS SUMMARY | 2022-08-22 06:56 | XMS_ITS | Encounter Summary ---
:1940 Author Organization [place] Address [address] [place] [address] Care Team Providers Name Role Phone Clinic, [facility] Primary Care Provider [phone] Encounter Details Date Type Department Care Team Description 06/19/2018 Documentation Only [facility] Heart Outside, Pr ovider [facility] [place] [address] [facility] [address] [place] [phone] Social History Tobacco Use Types Packs/Day Years [...] [address] [place] [phone] (Wo rk) 09/28/2022 Lab Lab 09/28/2022 Office Visit Cardiology Timothy Smith MD [address] [place] [address] Trudi Grayson APRN EARTH MOVING TECHNICIAN [address] [address] 11/16/2022 Ancillary Procedure Cardiology Timothy Smith MD [address] [place] [address] (Wo rk) documented as of this encounter Procedures Procedure Name Priority Date/Time Associated Diagnosis Comme nts BASIC METABOLIC PANEL Routine 06/13/2018 Result s for this procedure are i n the results section . documented in this encounter Results (ABNORMAL) Basic metabolic panel (06/13/2018) [facility] gist Method Time Signature Sodium 138 135 [...] Organization Address City/State/ZIP Code Phon e Number [facility] [address] [place] [address] LABORATORY [address] documented in this encounter Visit Diagnoses Not on filedocumented in this encounter Care Teams Benefits Consultant Relationship Specialty Start Date End Date Vinny Reinoso PCP - General 01/16/18 07/01/18 [address] [place] [address] documented as of this encounter
--- OUTSIDE RECORDS SUMMARY | 2022-08-22 06:56 | XMS_ITS | Encounter Summary ---
:1940 Author Organization [place] Address [address] [facility] [place] [address] Care Team Providers Name Role Phone Job Hernandezguadalupe Sameer LÓPEZ Primary Care Provider Reason for Visit CV Testing - Closed Specialty Diagnoses / Procedures Referred By Contact Refer red To Contact Diagnoses Pacemaker Basil Guadalupe MD Procedures Cardiac Device Check - Remote [address] [place] [address] Referral ID Status Reason Start Date Expiration Date Visits Requ ested Visits Authorized [id number] Closed 11/14/2018 11/14/2019 1 1 Encounter Details Date Type Department Care Team Description 11/14/2018 Ancillary Procedure [facility] [address] [facility] [address] [facility] [address] [place] [address] [place] [address] [phone] Social History Tobacco Use Types Packs/Day Years [...] Respiratory Therapy Timothy Smith MD [address] [place] [phone] (Wo rk) 09/28/2022 Lab Lab 09/28/2022 Office Visit Cardiology Timothy Smith MD [address] [place] [phone] Trudi Grayson, FLACO VICE PRESIDENT QUALITY IMPROVEMENT [address] [place] [phone] 11/16/2022 Ancillary Procedure Cardiology Timothy Smith MD [address] [place] [phone] (Wo rk) documented as of this encounter Procedures Procedure Name Priority Date/Time Associated Diagnosis Comme nts COURTESY DEVICE Routine 11/14/2018 11:19 AM Pacemaker Resul ts for this CHECK COMMISSARY SUPERINTENDENT procedure are i n the results section. documented in this encounter Results COURTESY DEVICE CHECK (11/14/2018 11:19 AM COMMISSARY SUPERINTENDENT) Component Value Ref Test Analysis Performed Pathologis t Range Method Time At Signature Date Time [id number] [employer] Interrogation Session Implantable [place] [employer] Pulse Generator Leather Cutter Implantable L121 [employer]SSENT[place] EL [employer] Pulse Generator Model Implantable [id number] [employer] Pulse Generator Serial Number Type Remote [employer] Interrogation Session Clinic Name [facility] Implantable Pacemaker [employer] Pulse Generator Type Implantable [id number] [employer] Pulse Generator Implant Date Implantable Lead [facility] RAUL Leather Cutter Implantable Lead 8TC Tendril [employer]TRONI C Model STS Implantable Lead [id number] [employer] Serial Number Implantable Lead [id number] [employer] Implant Date Implantable Lead Bipolar Lead [employer] Polarity Type Implantable Lead UNKNOWN [employer] Location Detail 1 Implantable Lead Right Atrium [employer] Location Implantable Lead [facility] [employer] RAUL Leather Cutter Implantable Lead 8TC Tendril [employer]I C Model STS Implantable Lead [id number] [employer] Serial Number Implantable Lead [id number] [employer] [...] [employer] Pacing Threshold Pulse Width Battery Date [id number] [employer] Time of Measurements Battery Status Beginning of [employer] Service Battery 108 mo [employer] Remaining Longevity Battery 100 % [employer] Remaining Percentage Brandon Statistic [id number] [employer] Date Time Start Brandon Statistic [employer]IC Date Time End Brandon Statistic 0 % [employer] RA Percent Paced Brandon Statistic 48 % [employer] RV Percent Paced Atrial Tachy [id number] [employer] Statistic Date Time Start Atrial Tachy [id number] [employer] Statistic Date Time End Atrial Tachy 80 % [employer] Statistic AT/AF [place] Percent Episode 497 [employer] Statistic Recent Count [...] [place] [employer] Statistic Vendor Type Category Episode [id number] [employer] Statistic Recent Date Time Start Episode [id number] [employer] Statistic Recent Date Time End Episode [id number] [employer] Statistic Recent Date Time Start Episode [id number] [employer] Statistic Recent Date Time End Episode [id number] [employer] Statistic Recent Date Time Start Episode [id number] [employer] Statistic Recent Date Time End Episode [id number] [employer] Statistic Recent Date Time Start Episode [id number] [employer] Statistic Recent Date Time End Episode [id number] [employer] Identifier Episode Type Other [employer] Category Episode Date [id number] [employer] Time Episode V-1438 [employer] Identifier Episode Type [place] [employer] Category Episode Date [id number] [employer] Time Episode Duration 14 s [employer] Episode V-1437 [employer] Identifier Episode Type [place] [employer] Category Episode Date [id number] [employer] Time Episode Duration 12 s [employer]IC Episode V-1436 [employer] Identifier Episode Type [place] [employer] Category Episode Date [id number] [employer] Time Episode Duration 12 s [facility]IC Episode V-1435 [employer] Identifier Episode Type [place] [employer] Category Episode Date [id number] [employer] Time Episode Duration 12 s [facility]IC Episode V-1434 [employer] Identifier Episode Type SVT [employer] Category Episode Vendor SVT [employer] Type Category Episode Date [id number] [employer] Time Episode Duration 74 s [facility]IC Episode V-1433 [employer] Identifier Episode Type [place] [employer] Category Episode Date [id number] [employer] Time Episode Duration 13 s [facility]IC Episode V-1432 [employer] Identifier Episode Type [place] [employer] Category Episode Date [id number] [employer] Time Episode Duration 18 s [employer]IC Episode V-1431 [employer] Identifier Episode Type [place] [employer] Category Episode Date [id number] [employer] Time Episode Duration 11 s [employer]IC Episode V-1430 [employer] Identifier Episode Type [place] [employer] Category Episode Date [id number] [employer] Time Episode Duration 12 s [employer] Episode ATR-[id number] [employer] Identifier Episode Type AT/AF [employer] Category Episode Date [id number] [employer] Time Episode V-1429 [employer] Identifier Episode Type [place] [employer] Category Episode Date [id number] [employer] Time Episode Duration 12 s [facility]IC Episode V-1428 [employer] Identifier Episode Type [place] [facility] Category Episode Date [id number] [employer] Time Episode Duration 12 s [facility] Episode APM-87 [employer] Identifier Episode Type Periodic EGM [employer] Category Episode Date [id number] [employer] Time Anatomical Region Laterality Modality Other Specimen (Source) Anatomical Collection Method Collection Time Re ceived Time Location / / Volume Laterality 11/14/2018 4:55 PM COMMISSARY SUPERINTENDENT Narrative 11/20/2018 2:33 PM COMMISSARY SUPERINTENDENT courtesy check: Pt calling to report CHF [...] situ documented in this encounter Care Teams Financial Analysis Advisor Relationship Specialty Start Date End Date Slava Hernandez PA-C PCP - General Physician Reservations Manager 07/02/18 06/29/21 [facility] [address] [place] [address] documented as of this encounter
--- OUTSIDE RECORDS SUMMARY | 2022-08-22 06:56 | XMS_ITS | Encounter Summary ---
:1940 Author Organization [place] Address [address] [facility] [place] [address] Care Team Providers Name Role Phone Slava [...] Respiratory Therapy Timothy Smith MD [address] [place] [address] (Wo rk) 09/28/2022 Lab Lab 09/28/2022 Office Visit Cardiology Timothy Smith MD [address] [place] [address] Trudi Grayson APRN FRUIT DRYER [address] [address] 11/16/2022 Ancillary Procedure Cardiology Timothy Smith MD [address] [place] [address] (Wo rk) documented as of this encounter Visit Diagnoses Not on filedocumented in this encounter Care Teams Increment Manager Relationship Specialty Start Date End Date Slava Hernandez PA-C PCP - General Physician Commercial Real Estate Manager 07/02/18 06/29/21 [facility] [address] [place] [address] documented as of this encounter
--- OUTSIDE RECORDS SUMMARY | 2022-08-22 06:56 | XMS_ITS | Encounter Summary ---
:1940 Author Organization [place] Address [address] [facility] [place] [address] Care Team Providers Name Role Phone Slava Hernandez PA-C Primary Care Provider Reason for Visit Reason Comments Abdominal Pain Encounter Details Date Type Department Care Team Description 07/04/2018 - Emergency [facility] Essie Sanchez Nephr olithiasis 07/05/2018 [facility] MD Tamanna [address] [facility] [place] [address] [address] [facility] [phone] [place], [place] [address] (Wo rk) Social History [...] contain Tylenol (acetaminophen), including Vicodin, Tylenol #3, [place], Lortab, and Percocet. You should not take [...] but it was normal and denies diarrhea. [id number], he states that he developed left lower [...] for refractory symptoms. 4. Provided with standard [facility] Discharge instructions for Kidney Stones 5. Prescriptions [...] provider's statements to me. Isac Alfred 07/04/2018 [facility] EMERGENCY [facility]MENT Essie Sanchez MD 07/07/181951 documented in this encounter Plan of Treatment Upcoming Encounters Date Type Specialty Care Team Description 08/31/2022 Appointment Respiratory Therapy Timothy Smith MD [address] [place] [address] (Wo rk) 09/28/2022 Lab Lab 09/28/2022 Office Visit Cardiology Timothy Smith MD [address] [place], [place] [address] Trudi Grayson, FLACO DENITRATOR OPERATOR [address] [place], [place] [address] 11/16/2022 Ancillary Procedure Cardiology Timothy Smith MD [address] [place], [place] [address] (Wo rk) documented as of this encounter [...] ORDERABLES (ABNORMAL) INR (07/04/2018 10:50 PM CDT) P athologist Signature INR 1.25 (H) 0.86 - 1.14 07/05/2018 [place] 12:43 AM CDT [facility] Specimen Anatomical Collection Method Collection Time Receive d Time (Source) Location / / Volume Laterality 07/04/2018 10:50 07/04/2018 PM CDT 11:22 PM CDT Provider Unknown LAB - BLOOD ORDERABLES Performing Organization Address City/State/ZIP Code Phon e Number [facility] [address] [place], [place] [address] [facility] [address] [phone] (ABNORMAL) UA with Microscopic reflex to Culture (07/04/2018 10:50 PM [facility]) [facility] Method Time Signature Color Urine Yellow 07/04/2018 [facility] 11:[address] [facility] Appearance Urine Clear 07/04/2018 [facility] 11:[address] [facility] Glucose Urine 50 (A) NEG^Negat 07/04/2018 [facility] mike mg/dL 11:[address] [facility] Bilirubin Urine Negative NEG^Negat 07/04/2018 [facility] mike 11:[address] [facility] Ketones Urine Negative NEG^Negat 07/04/2018 [facility] mike mg/dL 11:[address] [facility] Specific [place] 1.017 1.003 - 07/04/2018 [facility] Urine 1.035 11:[address] [facility] Blood Urine Negative NEG^Negat 07/04/2018 [facility] mike 11:[address] [facility] pH Urine 5.0 5.0 - 7.0 07/04/2018 [facility] pH 11:[address] [facility] Protein Albumin Negative NEG^Negat 07/04/2018 [facility] Urine mike mg/dL 11:[address] [facility] Urobilinogen 0.0 0.0 - 2.0 07/04/2018 [facility] mg/dL mg/dL 11:[address] [facility] Nitrite Urine Negative NEG^Negat 07/04/2018 [facility] mike 11:[address] [facility] Leukocyte Negative NEG^Negat 07/04/2018 [facility] Esterase Urine mike 11:[address] [facility] Source Midstream 07/04/2018 [facility] Urine 11:[address] [facility] WBC Urine 1 0 - 5 07/04/2018 [facility] /HPF 11:[address] [facility] RBC Urine 1 0 - 2 07/04/2018 [facility] /HPF 11:[address] [facility] Squamous <1 0 - 1 07/04/2018 [facility] Epithelial /HPF /HPF 11:28 PM [facility] Mucous Urine Present (A) NEG^Negat 07/04/2018 [facility] mike /LPF 11:[address] [facility] Specimen (Source) Anatomical Collection Method Collection Time Re ceived Time Location / / Volume Laterality Examination of 07/04/2018 10:50 8 midstream urine PM CDT 11:15 PM CDT specimen (procedure) Sabino Mckeon MD LAB - URINE ORDERABLES Performing Organization Address City/[facility]/ZIP [facility] Phon e Daniel [facility] [address] [place], [place] [address] [address] 7, [facility] [phone] Lipase (07/04/2018 10:50 PM CDT) athologist Signature Lipase 124 73 - 393 07/04/2018 [facility] U/L 11:35 PM CDT HOSPITAL Specimen Anatomical Collection Method Collection Time Receive d Time (Source) Location / / Volume Laterality Blood specimen 07/04/2018 10:50 8 (specimen) PM CDT 11:14 PM CDT Sabino Mckeon MD LAB - BLOOD ORDERABLES Performing Organization Address [facility] e [facility] [address] [place], [place] [address] [place] [address], [facility] [phone] (ABNORMAL) Comprehensive metabolic panel (07/04/2018 10:50 PM CDT) Analysis Performed At Patho logist Time Signature Sodium 139 133 - 144 07/04/2018 [place] mmol/L 11:35 PM [facility] Potassium 4.2 3.4 - 5.3 07/04/2018 [place] mmol/L 11:35 PM [facility] Chloride 102 94 - 109 07/04/2018 [place] mmol/L 11:35 PM [facility] Carbon Dioxide 30 20 - 32 07/04/2018 [place] mmol/L 11:35 PM [facility] Anion Gap 7 3 - 14 07/04/2018 [place] mmol/L 11:35 PM [facility] Glucose 240 (H) 70 - 99 07/04/2018 [place] mg/dL 11:35 PM [facility] Urea Nitrogen 37 (H) 7 - 30 07/04/2018 [place] mg/dL 11:35 PM [facility] Creatinine 1.43 (H) 0.66 - 07/04/2018 [place] 1.25 mg/dL 11:35 PM [facility] GFR Estimate 48 (L) >60 07/04/2018 [place] mL/min/1.7 11:35 PM [place] [address] HOSPITAL Comment: Non GFR Calc GFR Estimate If 58 (L) >60 mL/min/1.7m2 07/04/2018 11:35 PM [facility] Black [facility] Comment: GFR Calc Calcium 9.3 8.5 - 10.1 07/04/2018 11:35 PM [facility] mg/dL [facility] Bilirubin Total 0.4 0.2 - 1.3 mg/dL 07/04/2018 11:35 P [facility] Albumin 3.9 3.4 - 5.0 g/dL 07/04/2018 11:35 PM [facility] Protein Total 7.8 6.8 - 8.8 g/dL 07/04/2018 11:35 PM [facility] Alkaline Phosphatase 32 (L) 40 - 150 U/L 07/04/2018 11:35 PM [facility] ALT 22 0 - 70 U/L 07/04/2018 11:35 PM [facility] AST 22 0 - 45 U/L 07/04/2018 11:35 PM [facility] Specimen Anatomical Collection Method Collection Time Receive d Time (Source) Location / / Volume Laterality Blood specimen 07/04/2018 10:50 8 (specimen) PM CDT 11:14 PM CDT Sabino Mckeon MD LAB - BLOOD ORDERABLES Performing Organization Address City/State/ZIP Code Phon e Number [facility] [address] [place], [place] [address] [facility] [address] [place] [address] [phone] (ABNORMAL) CBC + differential (07/04/2018 10:50 PM CDT) [facility] Method Time Signature WBC 7.8 4.0 - 07/05/2018 [facility] 11.0 12:03 AM [facility] 10e9/L [facility] RBC Count 4.35 (L) 4.4 - 5.9 07/05/2018 [facility] 10e12/L 12:[address] [facility] Hemoglobin 13.9 13.3 - 07/05/2018 [facility] 17.7 g/dL 12:[address] [facility] Hematocrit 43.3 40.0 - 07/05/2018 [facility] 53.0 % 12:[address] [facility] MCV 100 78 - 100 07/05/2018 [facility] fl 12:[address] [facility] MCH 32.0 26.5 - 07/05/2018 [facility] 33.0 pg 12:[address] [facility] MCHC 32.1 31.5 - 07/05/2018 [facility] 36.5 g/dL 12:03 [facility] RDW 15.2 (H) 10.0 - 07/05/2018 [facility] 15.0 % 12:[address] [facility] Platelet Count 242 150 - 450 07/05/2018 [facility] 10e9/L 12:[address] [facility] Diff Method Automated 07/05/2018 [facility] Method 12:[address] [facility] % Neutrophils 62.9 % 07/05/2018 [facility] 12:[address] [facility] % Lymphocytes 19.5 % 07/05/2018 [facility] 12:03 [facility] % Monocytes 11.0 % 07/05/2018 [facility] 12:[address] [facility] % Eosinophils 5.0 % 07/05/2018 [facility] 12:[address] [facility] % Basophils 0.8 % 07/05/2018 [facility] 12:03 [facility] % Immature 0.8 % 07/05/2018 [facility] Granulocytes 12:[address] [facility] Nucleated RBCs 0 0 /100 07/05/2018 [facility] 12:[address] [facility] Absolute 4.9 1.6 - 8.3 07/05/2018 [facility] Neutrophil 10e9/L 12:[address] [facility] Absolute 1.5 0.8 - 5.3 07/05/2018 [facility] Lymphocytes 10e9/L 12:[address] [facility] Absolute 0.9 0.0 - 1.3 07/05/2018 [place] Monocytes 10e9/L 12:[address] [facility] Absolute 0.4 0.0 - 0.7 07/05/2018 [place] Eosinophils 10e9/L 12:[address] [facility] Absolute 0.1 0.0 - 0.2 07/05/2018 [place] Basophils 10e9/L 12:[address] [facility] Abs Immature 0.1 0 - 0.4 07/05/2018 [place] Granulocytes 10e9/L 12:[address] [facility] Absolute 0.0 07/05/2018 [place] Nucleated RBC 12:03 [facility] Specimen Anatomical Collection Method Collection Time Receive d Time (Source) Location / / Volume Laterality Blood specimen 07/04/2018 10:50 8 (specimen) PM CDT 11:14 PM CDT Sabino Mckeon MD LAB - BLOOD ORDERABLES Performing Organization Address City/State/ZIP Code Phon e Number M [place] [address] [phone] documented in this encounter Visit Diagnoses Diagnosis [...] analgesic side effects. Hold while on IV STILL OPERATOR BATCH OR CONTINUOUS or with regular IV opioid dosing. HYDROmorphone (DILAUDID) injection 0.2 m g Given 07/05/2018 1:54 AM CDT 0.2 mg 0.2 mg, Intravenous, ONCE, On Sun07/05/18 at 0114, For 1 dose documented in this encounter Active and Recently Administered Medications Times are shown in CDT. Scheduled Medication Order 07/03/2018 07/04/2018 07/05/2018 acetaminophen (TYLENOL) tablet 1,000 mg (COMPLETED) 0153 (Given - Provider: Krissy Emmanuel RN) 1,000 mg, Oral, ONCE, Sun07/05/18 at 011 4, For 1 dose, Maximum acetaminophen dose from all sources = 75 mg/kg/day not to exceed 4 gram HYDROmorphone (DILAUDID) injection 0.2 mg (COMPLETED) 015 (Given - Provider: Krissy Emmanuel RN) 0.2 mg, Intravenous, ONCE, 1 dose, Sun07/05/18 at 0114 PRN Medication Order 07/03/2018 07/04/2018 07/05/2018 HYDROmorphone (DILAUDID) injection 0.2 mg (COMPLETED) 235 (Given - Provider: Yue Tyson RN) 0.2 mg, Intravenous, ONCE PRN, 1 dose, S tarting Ana 07/04/18 at 2350, Until Ana 07/04/18 at 2357, other, pain control or improvement in physical function. Hold dose for analgesic side effects., Notify the provider to assess for uncontrolled madhuri n or analgesic side effects. Hold while on IV STILL OPERATOR BATCH OR CONTINUOUS or with regular IV opioid dosing. documented in this encounter Care Teams Maintenance Representative Relationship Specialty Start Date End Date Slava Hernandez PA-C PCP - General Physician Manager Wholesale 07/02/18 06/29/21 [facility] [address] [place] [address] documented as of this encounter
--- OUTSIDE RECORDS SUMMARY | 2022-08-22 06:56 | XMS_ITS | Encounter Summary ---
:1940 Author Organization [place] Address [address] [place] [address] Care Team Providers Name Role Phone Slava Hernandez PA-C Primary Care Provider Reason for Referral Diagnostic Imaging XR - Closed Specialty Diagnoses / Procedures Referred By Contact Refer red To Contact Radiology. 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 [place] [address] [place] [address] [place], [place] [phone] (Work) [phone] Social History Tobacco Use Types Packs/Day Years Used Date Smoking Tobacco: Never Smokeless Tobacco: Never Alcohol Use Standard Drinks/Week Comments No 0 (1 standard drink = 0.6 oz pure alcoho l) Sex Assigned at Date Recorded Not on file documented as of this encounter Last Filed Vital Signs Vital Sign Reading Time Taken Comments Blood Pressure - - Pulse 82 10/23/2018 1:26 PM METER ATTENDANT Temperature - - Respiratory Rate - - Oxygen Saturation 92% 10/23/2018 1:26 PM METER ATTENDANT Inhaled Oxygen Concentration - - Weight 133.8 kg (295 lb) 10/23/2018 1:26 PM METER ATTENDANT Height 180.3 cm (5' 11) 10/23/2018 1:26 PM METER ATTENDANT Body Mass Index 41.14 10/23/2018 1:26 PM METER ATTENDANT documented in this encounter Patient Instructions Patient [...] laxatives. -Additional/different recommendations pending any stone analysis. R ATTENDANT documented in this encounter Progress Notes Shea [...] any questions or concerns. Shea Rivera PA-C [facility] Urology 30 minutes were spent with the patient today, > 50% in counseling and coordination of care of kidney stone. R ATTENDANT Shea Rivera PA-C - 10/23/2018 1:30 PM CST 2011 [place] R ATTENDANT documented in this encounter Nursing Notes Delores Wilburn CMA - 10/23/2018 1:30 PM CST Pt here for stone Follow-up. Pt has had dark urine. Pt sometimes had flank pain. Pt passed 2 stones in Trae Duenas CMA R ATTENDANT documented in this encounter Plan of Treatment Upcoming Encounters Date Type Specialty Care Team Description 08/31/2022 Appointment Respiratory Therapy Timothy Smith MD [address] [place] [phone] (Wo wade) 09/28/2022 Lab Lab 09/28/2022 Office Visit Cardiology Timothy Smith MD [address] [place] [address] Trudi Grayson APRN PUNCH PRESS SETTER [address] [address] 11/16/2022 Ancillary Procedure Cardiology Timothy Smith MD [address] [place] [address] (Wo rk) documented as of this encounter Procedures Procedure Name Priority Date/Time Associated Comments Diagnosis URINE MACROSCOPIC Routine 10/23/2018 1:33 PM Calculus of kidne y Results for this ONLY METER ATTENDANT procedure are i n the results section. documented in this encounter Results XR KUB [[id number]] (10/23/2018 2:27 PM METER ATTENDANT) Anatomical Region Laterality Modality Abdomen/Pelvis Digital Radiography Specimen (Source) Anatomical Location Collection Method / Collectio n Time Received Time / Laterality Volume Impressions 10/23/2018 2:44 PM METER ATTENDANT IMPRESSION: No specific evidence of the previously seen distal ureteral stone. JEFFREY PA MD Narrative 10/23/2018 2:44 PM METER ATTENDANT XR KUB 10/23/2018 2:27 PM HISTORY: [...] IMAGING ORDER ANN (ABNORMAL) UA without Microscopic [[id number]] (10/23/2018 1:33 PM METER ATTENDANT) [facility] Method Time Signature Color Urine Yellow 10/23/2018 [place] 1:36 PM METER ATTENDANT [facility] Appearance Urine Clear 10/23/2018 [place] 1:36 PM METER ATTENDANT [facility] Glucose Urine Negative NEG^Negat 10/23/2018 [place] mike mg/dL 1:36 PM METER ATTENDANT [facility] Bilirubin Urine Negative NEG^Negat 10/23/2018 [place] mike 1:36 PM METER ATTENDANT [facility] Ketones Urine Trace (A) NEG^Negat 10/23/2018 [place] mike mg/dL 1:36 PM METER ATTENDANT [facility] Specific [place] >1.030 1.003 - 10/23/2018 [place] Urine 1.035 1:36 PM METER ATTENDANT [facility] Blood Urine Negative NEG^Negat 10/23/2018 [place] mike 1:36 PM METER ATTENDANT [facility] pH Urine 6.0 5.0 - 7.0 10/23/2018 [place] pH 1:36 PM METER ATTENDANT [facility] Protein Albumin 100 (A) NEG^Negat 10/23/2018 [place] Urine mike mg/dL 1:36 PM METER ATTENDANT [facility] Urobilinogen 1.0 0.2 - 1.0 10/23/2018 [place] Urine EU/dL 1:36 PM METER ATTENDANT [facility] Nitrite Urine Negative NEG^Negat 10/23/2018 [place] mike 1:36 PM METER ATTENDANT [facility] Leukocyte Negative NEG^Negat 10/23/2018 [place] Esterase Urine mike 1:36 PM METER ATTENDANT [facility] Source Midstream 10/23/2018 [place] Urine 1:35 PM METER ATTENDANT [facility] Specimen (Source) Anatomical Collection Method Collection Time Re ceived Time Location / / Volume Laterality Examination of 10/23/2018 1:33 10/23/2018 1:34 midstream urine PM METER ATTENDANT PM METER ATTENDANT specimen (procedure) Shea Rivera PA-C LAB - URINE ORDERABLES Performing Organization Address City/State/ZIP Code Phon e Number [place] [facility] [address] [place] [phone] [facility] [address] documented in this encounter Visit Diagnoses Diagnosis Calculus of kidney - Primary 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
--- OUTSIDE RECORDS SUMMARY | 2022-08-22 06:56 | XMS_ITS | Encounter Summary ---
:1940 Author Organization [place] Address [address] [facility] [place] [address] Care Team Providers Name Role Phone Slava [...] [address] [place] [address] (Wo rk) 09/28/2022 Lab Lab 09/28/2022 Office Visit Cardiology Timothy Smith MD [address] [place] [address] Trudi Grayson APRN WELFARE DIRECTOR [address] [address] 11/16/2022 Ancillary Procedure Cardiology Timothy Smith MD [address] [place] [address] (Wo rk) documented as of this encounter Visit Diagnoses Not on filedocumented in this encounter Care Teams Rn Dialysis Relationship Specialty Start Date End Date Slava Hernandez PA-C PCP - General Physician Node Js Developer 07/02/18 06/29/21 [facility] [address] [place] [address] documented as of this encounter
--- OUTSIDE RECORDS SUMMARY | 2022-08-22 06:56 | XMS_ITS | Encounter Summary ---
:1940 Author Organization [place] Address [address] [place] [address] Care Team Providers Name Role Phone Slava Hernandez PA-C Primary Care Provider Reason for Referral Diagnostic Imaging XR - Closed Specialty Diagnoses / Procedures Referred By Contact Refer red To Contact Radiology. Diagnoses Calculus of kidney Shea Rivera PA-C Rh Xray Procedures XR KUB [[id number]] [address] [place] [address] [place], [place] [phone] Fax: Referral ID Status Reason Start Date Expiration Date Visits Requ ested Visits Authorized [id number] Closed 10/23/2018 10/23/2019 1 1 LIFE FORENSIC GENETICIST Reason for Visit Diagnostic Imaging XR - Closed Specialty Diagnoses / Procedures Referred By Contact Refer red To Contact Radiology. Diagnoses Calculus of kidney Shea Rivera PA-C Rh Xray Procedures XR KUB [[id number]] [address] [place] [address] [place], [place] [phone] Fax: Referral ID Status Reason Start Date Expiration Date Visits Requ ested Visits Authorized [id number] Closed 10/23/2018 10/23/2019 1 1 Encounter Details Date Type Department Care Team Description 10/23/2018 Hospital Encounter [facility] MiguelShea, Calculus of kidney [facility] PA-C [address] [place] [phone] [place] [address] [phone] Social History Tobacco Use Types Packs/Day Years [...] PO Take 5 mg by mouth 0 1012/2020 2 times daily (before meals) metFORMIN (GLUCOPHAGE) [...] Therapy Timothy Smith MD [address] [place] [phone] (Wo rk) 09/28/2022 Lab Lab 09/28/2022 Office Visit Cardiology Timothy Smith MD [address] [place] [phone] Trudi Grayson APRN AUTO BODY REPAIR TEACHER [address] [address] 11/16/2022 Ancillary Procedure Cardiology Timothy Smith MD [address] [place] [phone] (Wo rk) documented as of this encounter Procedures Procedure Name Priority Date/Time Associated Diagnosis Comme nts XR KUB Routine 10/23/2018 2:27 PM Calculus of kidney Res ults for this WILDLIFE FORENSIC GENETICIST procedure are i n the results section . documented in this encounter Results XR KUB [[id number]] (10/23/2018 2:27 PM WILDLIFE FORENSIC GENETICIST) Anatomical Region Laterality Modality Abdomen/Pelvis Digital Radiography Specimen (Source) Anatomical Location Collection Method / Collectio n Time Received Time / Laterality Volume Impressions 10/23/2018 2:44 PM WILDLIFE FORENSIC GENETICIST IMPRESSION: No specific evidence of the previously seen distal ureteral stone. JEFFREY PA MD Narrative 10/23/2018 2:44 PM WILDLIFE FORENSIC GENETICIST XR KUB 10/23/2018 2:27 PM HISTORY: Left [...] kidney documented in this encounter Care Teams Farmworker Animal Relationship Specialty Start Date End Date Slava Hernandez PA-C PCP - General Physician Orthopedic Shoes Salesperson 07/02/18 06/29/21 [facility] [address] [place], [place] [phone] documented as of this encounter
--- OUTSIDE RECORDS SUMMARY | 2022-08-22 06:56 | XMS_ITS | Encounter Summary ---
:1940 Author Organization [place] Address [facility] [place] [address] Care Team Providers Name Role Phone Clinic, [facility] Primary Care Provider [phone] Reason for Visit Reason Onset Date Comments Refill Request 06/25/2018 [place] Encounter Details Date Type Department Care Team Description 06/25/2018 Refill [facility] Heart Zarina Smith MD Refill Request (eliquis) [facility] [place] [address] [place] [id number] [address] [place] [address] [place] [phone] Social History Tobacco Use Types Packs/Day Years [...] Respiratory Therapy Timothy Smith MD [address] [place] [phone] (Wo rk) 09/28/2022 Lab Lab 09/28/2022 Office Visit Cardiology Timothy mSith MD [address] [place] [phone] Trudi Grayson APRN JEWEL BEARING MAKER [address] [address] 11/16/2022 Ancillary Procedure Cardiology Timothy Smith MD [address] [place] [address] (Wo rk) documented as of this encounter Visit Diagnoses Diagnosis Paroxysmal atrial fibrillation (H) Atrial fibrillation documented in this encounter Care Teams Talent Director Relationship Specialty Start Date End Date [facility], [facility] PCP - General 01/16/18 07/01/18 [address] [place] [address] documented as of this encounter
--- OUTSIDE RECORDS SUMMARY | 2022-08-22 06:56 | XMS_ITS | Encounter Summary ---
:1940 Author Organization [place] Address [address] [place] [address] Care Team Providers Name Role Phone Mary Slava Estrella PA-C Primary Care Provider Reason for Visit Reason Onset Date Comments Prior Auth - Medication 10/02/2018 apixaban ANTICOA GULANT (ELIQUIS) 5 MG tablet- Tier Exception Denied Encounter Details Date Type Department Care Team Description 10/02/2018 Telephone [facility] Timothy Smith MD Prior Auth - Medication [facility] [place] [address] (apixaban ANTICOAGULANT [address] (ELIQUIS) 5 MG tablet- [facility] [address] [place] [address] Tier Exception Denied) [place] [id number] Social History Tobacco Use Types Packs/Day Years [...] is requesting his refills to go to [facility]. Needing eliquis. Sent script to pharmacy. SIENNA Okeefe ODONTIST SMALL BUSINESS OWNER Telephone Encounter - Lacy Washington RN - 10/29/2018 10:19 AM CST Pt called as he needs a couple of weeks of samples of Eliquis to make it until his new insurance card arrives. 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 Jing ODONTIST SMALL BUSINESS OWNER Telephone Encounter - Lacy Washington RN - 10/28/2018 7:32 AM CST Pt called and LM and stated that he has changed his insurance from [employer] to [employer] and will bring in his card when it arrives in the mail. Will then do a new PA if needed. Jing ODONTIST SMALL BUSINESS OWNER Telephone Encounter - Lacy Washington RN - 10/22/2018 4:24 PM CST LM for pt to call back to discuss the Eliquis tier exception denial. Jing ODONTIST SMALL BUSINESS OWNER Telephone Encounter - Catherine Aranda LPN - [...] PA-message to EP Team Dr Smith-yvette mena ODONTIST SMALL BUSINESS OWNER Telephone Encounter - Yareli Tamez - 10/07/2018 [...] necessity to our PA Team. Appeal Information: ODONTIST SMALL BUSINESS OWNER Telephone Encounter - Yareli Tamez - 10/03/2018 12:54 PM CST Images from the original note were not included. Central Prior Authorization Team Ter Exception Renewal Initiation Medication: apixaban ANTICOAGULANT (ELIQUIS) 5 MG tablet Insurance Company: [facility] - Pharmacy Filling the Rx: [facility] MAIL DELIVERY - [address] Filling Pharmacy Filling Pharmacy Fax: Start Date: 10/03/2018 ODONTIST SMALL BUSINESS OWNER Telephone Encounter - Kitty Sierra - 10/02/2018 10:12 AM CST TIER EXCEPTION RENEWAL Prior Authorization Retail Medication Request Medication/Dose: apixaban ANTICOAGULANT (ELIQUIS) 5 MG tablet ICD code (if different than what is on RX): Paroxysmal atrial fibrillation (H) [I48.0] Previously Tried and Failed: See chart Rationale: Needs renewal on Tier exception Patient called to start process Insurance Name: [employer] BIN: [id number] PCN: [id number] Pharmacy Information (if different than what is on RX) Name: [facility] MAIL DELIVERY ODONTIST SMALL BUSINESS OWNER documented in this encounter Plan of Treatment Upcoming Encounters Date Type Specialty Care Team Description 08/31/2022 Appointment Respiratory Therapy Timothy mSith MD [address] [place] [address] (Wo rk) 09/28/2022 Lab Lab 09/28/2022 Office Visit Cardiology Timothy Smith MD [address] [place] [address] Trudi Grayson APRN EXPLORATION ENGINEER [address] [address] 11/16/2022 Ancillary Procedure Cardiology Timothy Smith MD [address] [place] [address] (Wo rk) documented as of this encounter Visit Diagnoses Diagnosis Paroxysmal atrial fibrillation (H) Atrial fibrillation documented in this encounter Care Teams Entry Processor Relationship Specialty Start Date End Date Slava Hernandez PA-C PCP - General Physician Tricot Knitting Machine Operator 07/02/18 06/29/21 [facility] [id number] [place] [address] documented as of this encounter
--- OUTSIDE RECORDS SUMMARY | 2022-08-22 06:56 | XMS_ITS | Encounter Summary ---
:1940 Author Organization [place] Address [address] [facility] [place] [address] Care Team Providers Name Role Phone Slava Hernandez PA-C Primary Care Provider Encounter Details Date Type Department Care Team Description 11/18/2018 [facility] Heart Paro xysmal atrial fibrillation (H); [facility] [place] Cardiomyopathy, unspecified type (H); [address] [facility] [employer] Ischemi c cardiomyopathy [address] [place] [address] Social History Tobacco Use Types [...] Respiratory Therapy Timothy Smith MD [address] [place] [phone] (Wo rk) 09/28/2022 Lab Lab 09/28/2022 Office Visit Cardiology Timothy Smith MD [address] [place] [phone] Trudi Grayson APRN MEMBERSHIP DIRECTOR [address] [id number] 11/16/2022 Ancillary Procedure Cardiology Timothy Smith MD [address] [place] [phone] (Wo rk) documented as of this encounter Procedures Procedure Name Priority Date/Time Associated Diagnosis Comme nts BASIC METABOLIC Routine 11/18/2018 10:02 Paroxysmal atrial Res ults for this PANEL AM CRISIS MANAGER fibrillation (H) procedure are in Cardiomyopathy, the results unspecified type (H) section. Ischemic cardiomyopathy documented in this encounter Results (ABNORMAL) Basic metabolic panel (11/18/2018 10:02 AM [facility]) Analysis Performed At Patho logis Time Signature Sodium 144 133 - 144 11/18/2018 [facility] mmol/L 10:39 AM [facility] Potassium 3.8 3.4 - 5.3 11/18/2018 [facility] mmol/L 10:39 AM [facility] Chloride 105 94 - 109 11/18/2018 [facility] mmol/L 10:39 AM [facility] Carbon Dioxide 33 (H) 20 - 32 11/18/2018 [facility] mmol/L 10:46 AM [facility] Anion Gap 6 3 - 14 11/18/2018 [facility] mmol/L 10:46 AM [facility] Glucose 146 (H) 70 - 99 11/18/2018 [facility] mg/dL 10:46 AM [facility] Urea Nitrogen 30 7 - 30 11/18/2018 [facility] mg/dL 10:46 AM [facility] Creatinine 1.35 (H) 0.66 - 11/18/2018 [facility] 1.25 mg/dL 10:46 AM [facility] GFR Estimate 49 (L) >60 11/18/2018 [facility] mL/min/{1. 10:46 AM [facility] 73_m2} HOSPITAL Comment: Non GFR Calc Starting 09/17/2018, serum creatinine ba sed estimated GFR (eGFR) will be calculated using the Chronic Kidney Dise [facility] Epidemiology Collaboration (CKD-EPI) equation. GFR Estimate If 57 (L) >60 mL/min/{1.73_m2} 11/18/2018 10:46 AM [facility] Comment: GFR Calc Starting 09/17/2018, serum creatinine ba sed estimated GFR (eGFR) will be calculated using the Chronic Kidney Dise [facility] Epidemiology Collaboration (CKD-EPI) equation. Calcium 9.2 8.5 - 10.1 mg/dL 11/18/2018 10:46 AM CRISIS MANAGER [facility] Specimen Anatomical Collection Method Collection Time Receive d Time (Source) Location / / Volume Laterality Blood specimen 11/18/2018 10:02 9 (specimen) AM CRISIS MANAGER 10:07 AM CRISIS MANAGER Tammy Montenegro PA-C LAB - BLOOD ORDERABLES Performing Organization Address City/State/ZIP Code Phon e Number [place] [address] [address] [address] [place] [address] [phone] documented in this encounter Visit Diagnoses Diagnosis Paroxysmal atrial fibrillation (H) Atrial fibrillation Cardiomyopathy, unspecified type (H) Ischemic cardiomyopathy Other specified forms of chronic ischemi c heart disease documented in this encounter Care Teams Electrical Cad Designer Relationship Specialty Start Date End Date Slava Hernandez PA-C PCP - General Physician Clinical Courier 07/02/18 06/29/21 [facility] [address] [place] [address] documented as of this encounter
--- OUTSIDE RECORDS SUMMARY | 2022-08-22 06:56 | XMS_ITS | Encounter Summary ---
:1940 Author Organization [place] Address [address] [facility] [address] [facility] [place] [address] Care Team Providers Name Role Phone Slava Hernandez PA-C Primary Care Provider Encounter Details Date Type Department Care Team Description 11/14/2018 Telephone [facility] Robert Norris, SIENNA, [facility] Heart Care RN [address] [facility] [address] [facility] [address] [place] [address] [place] [address] [phone] (Wo rk) Social History Tobacco Use Types Packs/Day Years Used Date Smoking Tobacco: Never Smokeless Tobacco: Never Alcohol Use Standard Drinks/Week Comments No 0 (1 standard drink = 0.6 oz pure alcoho l) Sex Assigned at Date Recorded Not on file documented as of this encounter Miscellaneous Notes Telephone Encounter - Mary Norris, RN, RN - 11/14/2018 11:02 AM HOTEL OFFICE MANAGER Pt calling to report CHF symptoms of [...] RVR since 05/18 but none since 10/17/18. L OFFICE MANAGER documented in this encounter Plan of Treatment Upcoming Encounters Date Type Specialty Care Team Description 08/31/2022 Appointment Respiratory Therapy Timothy Smith MD [address] [place] [address] (Wo rk) 09/28/2022 Lab Lab 09/28/2022 Office Visit Cardiology Timothy Smith MD [address] [place] [address] Trudi Grayson APRN KENNEL OPERATOR [address] [phone] 11/16/2022 Ancillary Procedure Cardiology Timothy Smith MD [address] [place] [phone] (Wo rk) documented as of this encounter Visit Diagnoses Not on filedocumented in this encounter Care Teams Cake Inspector Relationship Specialty Start Date End Date Slava Hernandez PAIlanaC PCP - General Physician Rn Neurosurgical 07/02/18 06/29/[address] [facility] [address] [place] [address] documented as of this encounter
--- OUTSIDE RECORDS SUMMARY | 2022-08-22 06:56 | XMS_ITS | Encounter Summary ---
:1940 Author Organization [place] Address [address] [facility] [place] [address] Care Team Providers Name Role Phone Slava Hernandez PA-C Primary Care Provider Encounter Details Date Type Department Care Team Description 11/20/[address] [facility] Tammy Montenegro ACS (acute coronary [facility] [place] Torres PA-C syndrome) (H) [address] (Ria jing Dx) [facility] [address] [place] [phone] Social History Tobacco Use Types Packs/Day [...] Pls add BMP to OV with Eldabrayan Caldwell EQUIPMENT MECHANIC APPRENTICE Temitope Tamayo RN - 11/20/2018 2:49 PM [...] BMP to OV with Elda--Orders placed in Flickr for BMP and scheduling to call patient on 11/25to set up labs. SIENNA Okeefe EQUIPMENT MECHANIC APPRENTICE documented in this encounter Plan of Treatment Upcoming Encounters Date Type Specialty Care Team Description 08/31/2022 Appointment Respiratory Therapy Timothy Smith MD [address] [place] [phone] (Wo rk) 09/28/2022 Lab Lab 09/28/2022 Office Visit Cardiology Timothy Smith MD [address] [place] [phone] Trudi Grayson APRN FINISHER SCREWDOWN [address] [place], [place] [address] 11/16/2022 Ancillary Procedure Cardiology Timothy Smith MD [address] [place] [address] (Wo rk) documented as of this encounter Results (ABNORMAL) Basic metabolic panel (11/25/2018 10:56 AM [facility]) Analysis Performed At [facility] Time Signature Sodium 142 133 - 144 11/25/2018 [facility] mmol/L 11:[address] [facility] Potassium 4.3 3.4 - 5.3 11/25/2018 [facility] mmol/L 11:[address] [facility] Chloride 106 94 - 109 11/25/2018 [facility] mmol/L 11:[address] [facility] Carbon Dioxide 33 (H) 20 - 32 11/25/2018 [facility] mmol/L 11:[address] [facility] Anion Gap 3 3 - 14 11/25/2018 [facility] mmol/L 11:[address] [facility] Glucose 131 (H) 70 - 99 11/25/2018 [facility]:[address] [facility] Urea Nitrogen 32 (H) 7 - 30 11/25/2018 [facility] mg/[facility] 11:[address] [facility] Creatinine 1.43 (H) 0.66 - 11/25/2018 [facility] 1.25 mg/dL 11:[address] [facility] GFR Estimate 46 (L) >60 11/25/2018 [facility] mL/min/{1. 11:24 AM [facility] 73_m2} HOSPITAL Comment: Non GFR [...] 8.5 - 10.1 mg/dL 11/25/2018 11:24 AM FARM EQUIPMENT MECHANIC APPRENTICE [facility] Specimen Anatomical Collection Method Collection Time Receive d Time (Source) Location / / Volume Laterality Blood specimen 11/25/2018 10:56 9 (specimen) AM FARM EQUIPMENT MECHANIC APPRENTICE 10:59 AM FARM EQUIPMENT MECHANIC APPRENTICE Tammy Montenegro PA-C LAB - BLOOD ORDERABLES Performing Organization Address City/State/ZIP Code Phon e Number [place] [address] [address] [address] [place] [address] [phone] documented in this encounter Visit Diagnoses Diagnosis ACS (acute coronary syndrome) (H) - Prim arnie Intermediate coronary syndrome documented in this encounter Care Teams Termite Exterminator Relationship Specialty Start Date End Date Slava Hernandez PA-C PCP - General Physician Manager Benefit 07/02/18 06/29/[address] [address] documented as of this encounter
--- OUTSIDE RECORDS SUMMARY | 2022-08-22 06:56 | XMS_ITS | Encounter Summary ---
:1940 Author Organization [place] Address [address] [facility] [address] Care Team Providers Name Role Phone Slava [...] PERICARDIOCENTESIS HC ECHO MYOCARD BX MARIBEL Torres [address] C INJECTION, PERFLUTREN LIPI D MICROSPHERES, PER ML HC STATISTIC IV PUSH SINGLE INITIAL SUBSTANCE [address] [place] [address] [place] [address] Phone: Fax: Referral ID Status Reason Start Date Expiration Date Visits Requ ested Visits Authorized [id number] Closed 11/15/2018 11/15/2019 1 1 ING COORDINATOR Reason for Visit CV Testing (Routine) [...] PERICARDIOCENTESIS HC ECHO MYOCARD BX MARIBEL Torres [address] [address] [address] C INJECTION, PERFLUTREN LIPI D MICROSPHERES, PER ML HC STATISTIC IV PUSH SINGLE INITIAL SUBSTANCE [address] [place] [address] [place] [address] Phone: Fax: Referral ID Status Reason Start Date Expiration Date Visits Requ ested Visits Authorized [id number] Closed 11/15/2018 11/15/2019 1 1 Encounter Details Date Type Department Care Team Description 11/18/2018 [facility] [place] Tammyame Jaeger smal atrial fibrillation (H); Encounter [facility] MARIBEL Torres Cardiomyopathy, unspecified type (H); Heart Care [address] Ischemic cardiomyopathy [address] [place] [address] [place], [place] [phone] [address] (Work) [phone] Social History Tobacco Use Types Packs/Day Years [...] Coronary artery disease minutes as needed involving [place] coronary for chest pain artery of [place] heart without angina pectoris ondansetron (ZOFRAN ODT) [...] [address] [place] [address] (Wo rk) 09/28/2022 Lab Lab 09/28/2022 Office Visit Cardiology Timothy Smith MD [address] [place], [place] [address] Trudi Grayson, FLAC[employer] FINANCIAL REPORT SERVICE SALES AGENT [address] [place] [address] 11/16/2022 Ancillary Procedure Cardiology Timothy Smith MD [address] [place], [place] [address] (Wo rk) documented as of this encounter Procedures Procedure Name Priority Date/Time Associated Diagnosis Comme nts ECHO COMPLETE Routine 11/18/2018 11:17 AM Paroxysmal atrial Re sults for this CASTING COORDINATOR fibrillation (H) procedure are in Cardiomyopathy, the results unspecified type (H) section. Ischemic cardiomyopathy documented in this encounter Results ECHO COMPLETE (11/18/2018 11:17 AM CASTING COORDINATOR) Anatomical Region Laterality Modality Echocardiography Specimen (Source) Anatomical Collection Method Collection Time Re ceived Time Location / / Volume Laterality 11/18/2018 10:35 AM CASTING COORDINATOR Narrative 11/19/2018 3:59 PM [facility] [id number]^BELEN^TAMMY^JOSEFABELINO [facility] Echocardiography Laboratory [address] [place] [address] Name: RADHA VILLA : 1940 Study Date: 11/18/2018 10:35 AM Age: 78 yrs Gender: Male Patient Location: [facility] Reason For Study: Paroxysmal atrial fibr illation (H), Cardiomyopathy, unspecified Ordering Physician: TAMMY GLOVER Referring Physician: TAMMY GLOVER Performed By: Rdaha Mcgrath BSA: 2.6 m2 Height: 71 in [...] note might be different from the original. [id number]^BELEN^TAMMY^JUSTEN [facility] Echocardiography Laboratory [address] [place] [address] Name: RADHA VILLA : 1940 Study Date: 11/18/2018 10:35 AM Age: 78 yrs Gender: Male Patient Location: [facility] Reason For Study: Paroxysmal atrial fibr [...] disease documented in this encounter Care Teams Rip/Mould Operator Relationship Specialty Start Date End Date Slava Hernandez PA-C PCP - General Physician Game Protector 07/02/18 06/29/21 [facility] [address] [place] [address] documented as of this encounter
--- OUTSIDE RECORDS SUMMARY | 2022-08-22 06:56 | XMS_ITS | Encounter Summary ---
:1940 Author Organization [place] Address [address] [facility] [place] [address] Care Team Providers Name Role Phone Slava Hernandez PA-C Primary Care Provider Reason for Referral - Closed Specialty Diagnoses / Procedures Referred By Contact Refer red To Contact Diagnoses Persistent atrial fibrillation (H) Ankur Smith MD [address] [place] [address] Referral ID Status Reason Start Date Expiration Date Visits Requ ested Visits Authorized [id number] Closed 07/02/2018 07/02/2019 1 1 Reason for Visit Reason Comments Atrial Fib ekg done - Closed Specialty Diagnoses / Procedures Referred By Contact Refer red To Contact Diagnoses Persistent atrial fibrillation (H) Ankur Smith MD [address] [place] [address] Referral ID Status Reason Start Date Expiration Date Visits Requ ested Visits Authorized [id number] Closed 07/04/2018 07/04/2019 1 1 Encounter Details Date Type Department Care Team Description 07/02/2018 Office Visit [facility] Ankur Smith MD Persistent atrial [facility] [place] [address] fibrillation (H) [address] [facility] [address] [place] [address] [place] [phone] Social History Tobacco Use Types Packs/Day Years [...] see me in 10/2018. cc: [place] [address] ANKUR SMITH MD MT: AISHWARYA Name: RADHA VILLA MRN: [id number] Account: [id number] : 1940 Service Date: 07/02/2018 Document: [id number] Ankur Smith MD - 07/02/2018 9:30 AM CDT HPI and Plan: See dictation Orders Placed This Encounter Procedures ??? Follow-Up with Superintendent Gas Distribution No orders of the defined types were [...] MD [address] [place] [address] documented in this encounter Plan of Treatment Upcoming Encounters Date Type Specialty Care Team Description 08/31/2022 Appointment Respiratory Therapy Ankur Smith MD [address] [place] [address] (Wo rk) 09/28/2022 Lab Lab 09/28/2022 Office Visit Cardiology Ankur Smith MD [address] [place] [address] Trudi Grayson APRN SKOOG MACHINE OPERATOR [address] [place] [address] 11/16/2022 Ancillary Procedure Cardiology Ankur Smith MD [address] [place] [phone] (Wo rk) Scheduled Referrals Name Type Priority Associated Diagnoses Order S chedule Follow-Up with Referral Routine Persistent atrial Expected : Superintendent Gas Distribution fibrillation (H) 10/02 (Approximate), Expires: 07/02/2019 documented [...] fibrillation documented in this encounter Care Teams Tree Trimmer Relationship Specialty Start Date End Date Slava Hernandez PA-C PCP - General Physician Steel Grinder 07/02/18 06/29/21 [facility] [address] [place] [address] documented as of this encounter
--- OUTSIDE RECORDS SUMMARY | 2022-08-22 06:56 | XMS_ITS | Encounter Summary ---
:1940 Author Organization [place] Address [address] [facility] [place] [address] Care Team Providers Name Role Phone Slava Hernandez PA-C Primary Care Provider Encounter Details Date Type Department Care Team Description 11/25/2018 [facility] Only [facility] Heart ACS (acute coronary Clinic [place] syndrome) (H) [address] [facility] [address] [place], [place] [phone] Social History Tobacco Use Types Packs/Day Years Used Date Smoking Tobacco: Never Smokeless Tobacco: Never Alcohol Use Standard Drinks/Week Comments No 0 (1 standard drink = 0.6 oz pure alcoho l) Sex Assigned at Date Recorded Not on file documented as of this encounter Plan of Treatment Upcoming Encounters Date Type Specialty Care Team Description 08/31/2022 Appointment Respiratory Therapy Timothy Smith MD [address] [place] [phone] (Wo rk) 09/28/2022 Lab Lab 09/28/2022 Office Visit Cardiology Timothy Smith MD [address] [place] [id number] Trudi Grayson APRN .NET ARCHITECT [address] [id number] 11/16/2022 Ancillary Procedure Cardiology Timothy Smith MD [address] [place] [address] (Wo rk) documented as of this encounter Procedures Procedure Name Priority Date/Time Associated Diagnosis Comme nts BASIC METABOLIC Routine 11/25/2018 10:56 AM ACS (acute coronar y Results for this PANEL ABSORPTION PLANT OPERATOR HELPER syndrome) (H) procedure are in the results section. documented in this encounter Results (ABNORMAL) Basic metabolic panel (11/25/2018 10:56 AM ABSORPTION PLANT OPERATOR HELPER) Analysis Performed At Patho logist Time Signature Sodium 142 133 - 144 11/25/2018 [facility] mmol/L 11:18 AM [facility] Potassium 4.3 3.4 - 5.3 11/25/2018 [facility] mmol/L 11:18 AM [facility] Chloride 106 94 - 109 11/25/2018 [facility] mmol/L 11:18 AM [facility] Carbon Dioxide 33 (H) 20 - 32 11/25/2018 [facility] mmol/L 11:24 AM [facility] Anion Gap 3 3 - 14 11/25/2018 [facility]/L 11:24 AM [facility] Glucose 131 (H) 70 - 99 11/25/2018 [facility] mg/dL 11:24 AM [facility] Urea Nitrogen 32 (H) 7 - 30 11/25/2018 [facility] mg/dL 11:24 AM [facility] Creatinine 1.43 (H) 0.66 - 11/25/2018 [facility] 1.25 mg/dL 11:24 AM [facility] GFR Estimate 46 (L) >60 11/25/2018 [place] mL/min/{1. 11:24 AM [facility] 73_m2} HOSPITAL Comment: Non GFR Calc Starting 09/17/2018, serum creatinine ba sed estimated GFR (eGFR) will be calculated using the Chronic Kidney Dise [facility] Epidemiology Collaboration (CKD-EPI) equation. GFR Estimate If 53 (L) >60 mL/min/{1.73_m2} 11/25/2018 11:24 AM [facility] Comment: GFR Calc Starting 09/17/2018, serum creatinine ba sed estimated GFR (eGFR) will be calculated using the Chronic Kidney Dise [facility] Epidemiology Collaboration (CKD-EPI) equation. Calcium 9.2 8.5 - 10.1 mg/dL 11/25/2018 11:24 AM ABSORPTION PLANT OPERATOR HELPER [facility] Specimen Anatomical Collection Method Collection Time Receive d Time (Source) Location / / Volume Laterality Blood specimen 11/25/2018 10:56 9 (specimen) AM ABSORPTION PLANT OPERATOR HELPER 10:59 AM ABSORPTION PLANT OPERATOR HELPER Tammy Montenegro PA-C LAB - BLOOD ORDERABLES Performing Organization Address City/State/ZIP Code Phon e Number [place] [address] [address] [place], [place] [address] [phone] [place] [address] [phone] documented in this encounter Visit Diagnoses Diagnosis ACS (acute coronary syndrome) (H) Intermediate coronary syndrome documented in this encounter Care Teams Meat Molder Relationship Specialty Start Date End Date Slava Hernandez PA-C PCP - General Physician Cook Room Supervisor 07/02/18 06/29/21 [facility] [id number] [place] [address] documented as of this encounter
--- OUTSIDE RECORDS SUMMARY | 2022-08-22 06:56 | XMS_ITS | Encounter Summary ---
:1940 Author Organization [place] Address [address] [place] [address] Care Team Providers Name Role Phone Slava Hernandez PA-C Primary Care Provider Reason for Referral - Closed Specialty Diagnoses / Procedures Referred By Contact Refer red To Contact Diagnoses Paroxysmal atrial fibrillation (H) Cardiomyopathy, unspecified type (H) Ischemic cardiomyopathy Tammy Glover PA-C [address] [place] [address] Referral ID Status Reason Start Date Expiration Date Visits Requ ested Visits Authorized [id number] Closed 11/15/2018 11/15/2019 1 1 BOOM OPERATOR CV Testing (Routine) - Closed Specialty Diagnoses [...] PERICARDIOCENTESIS HC ECHO MYOCARD BX MARIBEL Torres [address] Advanced Telemetry C INJECTION, PERFLUTREN LIPI D MICROSPHERES, PER ML HC STATISTIC IV PUSH SINGLE INITIAL SUBSTANCE [address] [place] [address] [place] [address] Phone: Fax: Referral ID Status Reason Start Date Expiration Date Visits Requ ested Visits Authorized [id number] Closed 11/15/2018 11/15/2019 1 1 BOOM OPERATOR Reason for Visit Reason Comments Edema Fatigue Encounter Details Date Type Department Care Team Description 11/15/[address] [facility] Tammy Glover Cardio myopathy, unspecified type (H) (Primary Dx); Heart Clinic Shilpi Torres PA-C Paroxysmal atrial fibrillation (H); [address] [facility] [address] [facility] [address] [address] SSS (sick sinus syndrome) (H); [facility] [address] Ischemic cardiomyopathy; [place] [address] [place] [address] Coronary artery disease involving [place] coronary artery of [place] heart without angina pectoris [phone] (Wo rk) Social History Tobacco Use Types Packs/Day Years Used Date Smoking Tobacco: Never Smokeless Tobacco: Never Alcohol Use Standard Drinks/Week Comments No 0 (1 standard drink = 0.6 oz pure alcoho l) Sex Assigned at Date Recorded Not on file documented as of this encounter Last Filed Vital Signs Vital Sign Reading Time Taken Comments Blood Pressure 123/70 11/15/2018 1:00 PM HEEL BOOM OPERATOR Pulse 80 11/15/2018 1:00 PM HEEL BOOM OPERATOR Temperature - - Respiratory Rate - - Oxygen Saturation - - Inhaled Oxygen Concentration - - Weight 142.9 kg (315 lb) 11/15/2018 1:00 PM HEEL BOOM OPERATOR Height 180.3 cm (5' 11) 11/15/2018 1:00 PM HEEL BOOM OPERATOR Body Mass Index 43.93 11/15/2018 1:00 PM HEEL BOOM OPERATOR documented in this encounter Patient Instructions Patient InstructionsTammy Glover PA-C - 11/15/2018 1:10 PM HEEL BOOM OPERATOR 1. Reviewed increased swelling and shortness of [...] with rest. 4. My nurses are Lacy/Pat: [phone] BOOM OPERATOR documented in this encounter Progress Notes Tammy [...] 4. Sinus node dysfunction status post dual-chamber [employer] pacemaker 01/2016. He did not ever [...] EKG today, which I overread, showed intermittent MATTRESS FILLING MACHINE TENDER @ 76 bpm with 2 PVCs of [...] Ischemic cardiomyopathy ??? Coronary artery disease involving [place] coronary artery of [place] heart without angina pectoris CURRENT MEDICATIONS: Current [...] Other Topics Concern ??? Parent/sibling w/ CABG, SC or angioplasty before 65F 55M? No ??? [...] GFRESTBLACK 58 (L) 07/04/2018 [place] 9.3 07/04/2018 BOOM OPERATOR documented in this encounter Plan of Treatment Upcoming Encounters Date Type Specialty Care Team Description 08/31/2022 Appointment Respiratory Therapy Timothy Smith MD [address] [place] [address] (Wo rk) 09/28/2022 Lab Lab 09/28/2022 Office Visit Cardiology Timothy Smith MD [address] [place] [address] Trudi Grayson APRN HIGH SCHOOL SCIENCE TEACHER [address] [address] 11/16/2022 Ancillary Procedure Cardiology Timothy Smith MD [address] [place] [address] (Wo rk) Scheduled Referrals Name Type Priority [...] Resu lts for this COMPLETE W/READ - HEEL BOOM OPERATOR fibrillation (H) proced ure are in CLINICS the results section. documented in this encounter Results ECHO COMPLETE (11/18/2018 11:17 AM HEEL BOOM OPERATOR) Anatomical Region Laterality Modality Echocardiography Specimen (Source) Anatomical Collection Method Collection Time Re ceived Time Location / / Volume Laterality 11/18/2018 10:35 AM HEEL BOOM OPERATOR Narrative 11/19/2018 3:59 PM HEEL BOOM OPERATOR [id number]^BELEN^TAMMY^JUSTEN [facility] Echocardiography Laboratory [address] [place] [address] Name: RADHA VILLA : 1940 Study Date: 11/18/2018 10:35 AM Age: 78 yrs Gender: Male Patient Location: [facility] Reason For Study: Paroxysmal atrial fibr [...] note might be different from the original. [id number]^BELEN^TAMMY^JUSTEN [facility] Echocardiography Laboratory [address] [place] [address] Name: RADHA VILLA : 1940 Study Date: 11/18/2018 10:35 AM Age: 78 yrs Gender: Male Patient Location: [facility] Reason For Study: Paroxysmal atrial fibr [...] by: Pop Bloom 11/19/2018 03:59 PM Tammy MCKINNEY-Augustin CV ECHO ORDERABLES (ABNORMAL) Basic metabolic panel (11/18/2018 10:02 AM [facility]) Analysis Performed At Patho logist Time Signature Sodium 144 133 - 144 11/18/2018 [facility] mmol/L 10:39 AM [facility] Potassium 3.8 3.4 - 5.3 11/18/2018 [facility] mmol/L 10:39 AM [facility] Chloride 105 94 - 109 11/18/2018 [facility] mmol/L 10:39 AM [facility] Carbon Dioxide 33 (H) 20 - 32 11/18/2018 [facility] mmol/L 10:46 AM [facility] Anion Gap 6 3 - 14 11/18/2018 [facility] mmol/L 10:46 AM [facility] Glucose 146 (H) 70 - 99 11/18/2018 [facility] mg/dL 10:46 AM [facility] Urea Nitrogen 30 7 - 30 11/18/2018 [facility] mg/dL 10:46 AM [facility] Creatinine 1.35 (H) 0.66 - 11/18/2018 [facility] 1.25 mg/dL 10:46 AM [facility] GFR Estimate 49 (L) >60 11/18/2018 [place] mL/min/{1. 10:46 AM [facility] 73_m2} HOSPITAL Comment: Non GFR Calc Starting 09/17/2018, serum creatinine ba sed estimated GFR (eGFR) will be calculated using the Chronic Kidney Dise [facility] Epidemiology Collaboration (CKD-EPI) equation. GFR Estimate If 57 (L) >60 mL/min/{1.73_m2} 11/18/2018 10:[address] [facility] Comment: GFR Calc Starting 09/17/2018, serum creatinine ba sed estimated GFR (eGFR) will be calculated using the Chronic Kidney Dise [facility] Epidemiology Collaboration (CKD-EPI) equation. Calcium 9.2 8.5 - 10.1 mg/dL 11/18/2018 10:46 AM HEEL BOOM OPERATOR [facility] Specimen Anatomical Collection Method Collection Time Receive d Time (Source) Location / / Volume Laterality Blood specimen 11/18/2018 10:02 9 (specimen) AM HEEL BOOM OPERATOR 10:07 AM HEEL BOOM OPERATOR Tammy Glover PA-C LAB - BLOOD ORDERABLES Performing Organization Address City/State/ZIP Code Phon e Number [place] [address] [place], [place] [address] [facility] [address] [place], [place] [address] [place] [address] EKG 12-lead complete w/read - Clinics (performed today) (11/15/2018 4:45 PM HEEL BOOM OPERATOR) Narrative This result has an attachment that is no t available. Tammy Glover PA-C ECG ORDERABLES documented in this encounter Visit Diagnoses Diagnosis Cardiomyopathy, unspecified type (H) - P rimary Paroxysmal atrial fibrillation (H) Atrial fibrillation SSS (sick sinus syndrome) (H) Sinoatrial node dysfunction Ischemic cardiomyopathy Other specified forms of chronic ischemi c heart disease Coronary artery disease involving [place] coronary artery of [place] heart without angina pectoris Paroxysmal atrial fibrillation (H) Atrial fibrillation Cardiomyopathy, unspecified type (H) Ischemic cardiomyopathy Other specified forms of chronic ischemi c heart disease documented in this encounter Care Teams Housesmith Relationship Specialty Start Date End Date Slava Hernandez PA-C PCP - General Physician Ultrasound Technologist Sonographer 07/02/18 06/29/21 [facility] [id number] [place] [address] documented as of this encounter
--- OUTSIDE RECORDS SUMMARY | 2022-08-22 06:56 | XMS_ITS | Encounter Summary ---
:1940 Author Organization [place] Address [address] [facility] [place] [address] Care Team Providers Name Role Phone Kemar, Vinny [place] Primary Care Provider [phone] Reason for Visit (Routine) - Closed Specialty Diagnoses / Procedures Referred By Contact Refer red To Contact Cardiology Diagnoses Per Sarah Persistent atrial fibrillation Rh Echo [facility] Procedures ECH COMPLETE [address] [place] [address] [place], [place] [address]237 Phone: Fax: Referral ID Status Reason Start Date Expiration Date Visits Requ ested Visits Authorized [id number] Closed 06/26/2018 06/26/2019 1 1 Encounter Details Date Type Department Care Team Description 06/26/2018 Hospital Encounter [facility] Ankur Smith MD [facility] [address] [place] [address] AVWilfred fibrillat ion (H) [facility] [address] [address] [place] [address] [address] [place], [place] (Work) [address] Social History Tobacco Use [...] 08/31/2022 Appointment Respiratory Therapy Ankur Smith MD [address] [place] [phone] (Wo rk) 09/28/2022 Lab Lab 09/28/2022 Office Visit Cardiology Ankur Smith MD [address] [place] [address] Trudi Grayson APRN PAINT SUPERVISOR [address] [place] [id number] 11/16/2022 Ancillary Procedure Cardiology Ankur Smith MD [address] [place], [place] [address] (Wo rk) documented as of this encounter [...] AM CDT Narrative 06/26/2018 1:09 PM CDT [id number]^SARAH^ANKUR [facility] Echocardiography Laboratory [address] [place] [address] Name: RADHA VILLA : 1940 Study Date: 06/26/2018 10:37 AM Age: 77 yrs Gender: Male [place] [facility] [place] For Study: Persistent atrial fibr [...] note might be different from the original. [id number]^SARAH^ANKUR [facility] Echocardiography Laboratory [address] [place] [address] Name: RADHA VILLA : 1940 Study Date: 06/26/2018 10:37 AM Age: 77 yrs Gender: Male Patient [place] [facility] [place] For Study: Persistent atrial fibr [...] dose documented in this encounter Care Teams Mortar Maker Relationship Specialty Start Date End Date Clinic, Vinny Ja[place] PCP - General 01/16/18 07/01/18 [address] [place] [address] documented as of this encounter
--- OUTSIDE RECORDS SUMMARY | 2022-08-22 06:57 | XMS_ITS | Encounter Summary ---
:1940 Author Organization [place] Address [facility] [place] [address] Care Team Providers Name Role Phone Clinic, [facility] Primary Care Provider [phone] Encounter Details Date Type Department Care Team Description 05/21/2018 Orders Only [facility] Heart CAD (coronary artery Clinic [facility] or disease) [address] [facility] [address] [place] [phone] Social History Tobacco Use Types Packs/Day Years [...] Respiratory Therapy Timothy Smith MD [address] [place] [address] (Wo rk) 09/28/2022 Lab Lab 09/28/2022 Office Visit Cardiology Timothy Smith MD [address] [place] [address] Trudi Grayson APRN WIRE TWISTING MACHINE OPERATOR [address] [address] 11/16/2022 Ancillary Procedure Cardiology Timothy Smith MD [address] [facility] [place] [address] (Wo rk) documented as of this encounter [...] [facility] mmol/L 3:31 PM [facility] A Potassium 4.7 3.5 - 5.1 05/21/2018 [facility] mmol/L 3:31 PM [facility] A Chloride 101 98 - 107 05/21/2018 [facility] mmol/L 3:31 PM T [facility] A Carbon Dioxide 31 (H) 23 - 29 05/21/2018 [facility] mmol/L 3:31 PM [facility] A Anion Gap 13.7 6 - 17 05/21/2018 [facility] mmol/L 3:31 PM [facility] A Glucose 154 (H) 70 - 105 05/21/2018 [facility] mg/dL 3:31 PM [facility] A Urea Nitrogen 44 (H) 7 - 30 05/21/2018 [facility] mg/dL 3:31 PM [facility] A Creatinine 2.03 (H) 0.70 - 05/21/2018 [facility] 1.30 mg/dL 3:31 PM [facility] A GFR Estimate 32 (L) >60 05/21/2018 [facility] mL/min/1.7 3:31 PM [facility] m2 A GFR Estimate If 39 (L) >60 05/21/2018 [facility] [place] mL/min/1.7 3:31 PM T [facility] m2 A Calcium 10.3 8.5 - 10.5 05/21/2018 [facility] mg/dL 3:31 PM [facility] A Specimen Anatomical Collection Method Collection Time Receive d Time (Source) Location / / Volume Laterality Blood specimen 05/21/2018 2:05 PM 018 2:07 (specimen) CDT PM CDT Elda Johnson APRN WIRE TWISTING MACHINE OPERATOR LAB - BLOOD ORDERABL ES Performing Organization Address City/State/ZIP Code Phon e Number P [facility] [address] [address] [address] documented in this encounter Visit Diagnoses Diagnosis CAD (coronary artery disease) Coronary atherosclerosis of unspecified type of vessel, [place] or graft documented in this encounter Care Teams Bridge Maintenance Worker Relationship Specialty Start Date End Date [facility], Vinny Jaimes PCP - General 01/16/18 07/01/18 [address] [place] [address] documented as of this encounter
--- OUTSIDE RECORDS SUMMARY | 2022-08-22 06:57 | XMS_ITS | Encounter Summary ---
:1940 Author Organization [place] Address [address] [facility] [address] Care Team Providers Name Role Phone Clinic, [facility] Primary Care Provider [phone] Reason for Visit Reason Comments Pacemaker Check Rep check Pre AF ablation (c ancelled) Encounter Details Date Type Department Care Team Description 05/31/2018 Documentation Only [facility] Fabiola Hurtado Check (Rep Heart [facility] [place] Bui, RN, RN check Pre AF [address] [facility] HEART ablati on... [address] [place] [address] [phone] [address] [place] [address] [place] [id number] Social History Tobacco Use Types Packs/Day Years Used Date Smoking Tobacco: Never Smokeless Tobacco: Never Alcohol Use Standard Drinks/Week Comments No 0 (1 standard drink = 0.6 oz pure alcoho l) Sex Assigned at Date Recorded Not on file documented as of this encounter Progress Notes Fabiola Hurtado, RN, RN - 06/07/2018 3:48 PM CDT [employer] (D) PPM REP INTERROGATION Rep [...] years remaining longevity. Continue on current schedule. Supa,RN documented in this encounter Plan of Treatment Upcoming Encounters Date Type Specialty Care Team Description 08/31/2022 Appointment Respiratory Therapy Timothy Smith MD [address] [place] [address] (Wo rk) 09/28/2022 Lab Lab 09/28/2022 Office Visit Cardiology Timothy Smith MD [address] [place] [address] Trudi Grayson APRN LEARNING FACILITATOR [address] [place] [address] 11/16/2022 Ancillary Procedure Cardiology Timothy Smith MD [address] [place] [address] (Wo rk) documented as of this encounter Visit Diagnoses Not on filedocumented in this encounter Care Teams Cigarette Roller Relationship Specialty Start Date End Date [facility], Vinny Pinckard PCP - General 01/16/18 07/01/18 [address] [address] [place] [address] documented as of this encounter
--- OUTSIDE RECORDS SUMMARY | 2022-08-22 06:57 | XMS_ITS | Encounter Summary ---
:1940 Author Organization [place] Address [facility] 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); [address] [facility] Sleep countersinker balance screw hole ea, unspecified type; [address] Cardiomyopathy, unspecified type (H); [place] Typical atrial flutter (H); [address] Ischemic cardiomyopathy [phone] Social History Tobacco Use Types Packs/Day Years [...] Afib RNs: Lacy Del Rosario and Pat [phone] Call for Electrophysiology procedure scheduling concerns [phone] Device Clinic (Pacemakers, ICDs, Loop Recorders) RN's: Sammi Cotton Lynda, MJ, Stephanie, Sue During business hours: [phone] documented in this encounter Progress Notes Elda [...] any questions or concerns. Elda Johnson APRN, PROGRAM COORDINATOR EXECUTIVE EDUCATION This note was completed in part using [email or web address] voice recognition software. Although reviewed after completion, [...] (H) Yes ??? 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) Sleep apnea, unspecified type Cardiomyopathy, unspecified type (H) Typical atrial flutter (H) Atrial flutter Ischemic cardiomyopathy Other specified forms of chronic ischemi c heart disease documented in this encounter Care Teams Braider Setter Relationship Specialty Start Date End Date [facility], [facility] PCP - General 01/16/18 07/01/1860886 [place] [address] Slava Hernandez PA-C PCP - General Physician Consulting Technical Manager 07/02/18 06/29/21 [facility] [id number] [place] [address] documented as of this encounter
--- OUTSIDE RECORDS SUMMARY | 2022-08-22 06:57 | XMS_ITS | Encounter Summary ---
:1940 Author Organization [place] Address [address] [place] [address] Care Team Providers Name Role Phone Clinic, [facility] Primary Care Provider [phone] Reason for Visit Reason Comments Pacemaker Check Rep check post cardioversion Encounter Details Date Type Department Care Team Description 05/07/2018 Documentation Only [facility] Fabiola Hurtado Check (Rep Heart Clinic Patt Bui RN, RN check post [address] [facility] HEART cardio vers... [address] [place] [address] [phone] [address] [place] [address] Social History Tobacco Use Types Packs/Day Years Used Date Smoking Tobacco: Never Smokeless Tobacco: Never Alcohol Use Standard Drinks/Week Comments No 0 (1 standard drink = 0.6 oz pure alcoho l) Sex Assigned at Date Recorded Not on file documented as of this encounter Progress Notes Fabiola Hurtado RN, RN - 05/07/2018 1:19 PM CDT [employer] PPM REP CHECK POST CARDIOVERSION [...] Respiratory Therapy Timothy Smith MD [address] [place] [phone] (Wo rk) 09/28/2022 Lab Lab 09/28/2022 Office Visit Cardiology Timothy Smith MD [address] [place] [address] Trudi Grayson APRN CNP [address] [address] 11/16/2022 Ancillary Procedure Cardiology Timothy Smith MD [address] [place] [phone] (Wo rk) documented as of this encounter Visit Diagnoses Not on filedocumented in this encounter Care Teams Tubing Machine Tender Relationship Specialty Start Date End Date [facility], Vinny Jaimes PCP - General 01/16/18 07/01/18 [address] [place] [phone] documented as of this encounter
--- OUTSIDE RECORDS SUMMARY | 2022-08-22 06:57 | XMS_ITS | Encounter Summary ---
:1940 Author Organization [place] Address [address] [facility] [place] [address] Care Team Providers Name Role Phone Clinic, [facility] Primary Care Provider [phone] Reason for Visit Reason Comments Pacemaker Check annual - Closed Specialty Diagnoses / Procedures Referred By Contact Refer red To Contact Diagnoses Paroxysmal atrial fibrillation (H) [facility] [phone] [place] [phone] Referral ID Status Reason Start Date Expiration Date Visits Requ ested Visits Authorized [id number] Closed 05/20/2018 05/20/2019 1 1 Encounter Details Date Type Department Care Team Description 05/21/2018 [facility] Timothy Smith MD Pacemaker Check Health/Nurse [facility] [place] [address] [facility] (annual) Visit [address] [address] [place] [address] [place] [phone] Social History Tobacco Use Types Packs/Day Years Used Date Smoking Tobacco: Never Smokeless Tobacco: Never Alcohol Use Standard Drinks/Week Comments No 0 (1 standard drink = 0.6 oz pure alcoho l) Sex Assigned at Date Recorded Not on file documented as of this encounter Progress Notes Sarina Carty RN - 05/21/2018 2:30 PM CDT [place] [employer] (D) Pacemaker Device Check AP: 0 % BAGEL MAKER: 34 % Mode: DDDR 60-130 Underlying Rhythm: [...] [address] [place] [phone] (Wo rk) 09/28/2022 Lab Lab 09/28/2022 Office Visit Cardiology Timothy Smith MD [address] [place] [address] Trudi Grayson APRN CNP [address] [address] 11/16/2022 Ancillary Procedure Cardiology Timothy Smith MD [address] [place] [address] (Wo rk) documented as of this encounter Procedures Procedure Name Priority Date/Time Associated Diagnosis Comme nts PM DEVICE PROGRAMMING Routine 05/21/2018 Cardiac pacemaker in situ EVAL, SINGLE LEAD/LEADLESS SSS (sick sinu s syndrome) PACER (H) documented in this encounter Results PM DEVICE PROGRAMMING EVAL, SINGLE LEAD PACER ([id number]) (05/21/2018) Narrative This result has an attachment that is no t available. Timothy Smith MD PROCEDURES documented in this encounter Visit Diagnoses Diagnosis Cardiac pacemaker in situ - Primary SSS (sick sinus syndrome) (H) Sinoatrial node dysfunction documented in this encounter Care Teams Diamond Cutter Relationship Specialty Start Date End Date [facility], [facility] PCP - General 01/16/18 07/01/18 [address] [place] [address] documented as of this encounter
--- OUTSIDE RECORDS SUMMARY | 2022-08-22 06:57 | XMS_ITS | Encounter Summary ---
:1940 Author Organization [place] Address [facility] [place] [address] Care Team Providers Name Role Phone Clinic, [facility] Primary Care Provider [phone] Encounter Details Date Type Department Care Team Description 04/30/2018 [facility], Lidya Crenshaw [facility] Therapy fibrillation (H) (Primary [address] Dx) [place] [address] Social History Tobacco Use Types Packs/Day [...] [address] [place] [id number] (Wo rk) 09/28/2022 Lab Lab 09/28/2022 Office Visit Cardiology Timothy Smith MD [address] [place] 164[address] Trudi Grayson APRN 3RD MATE [address] [address] 11/16/2022 Ancillary Procedure Cardiology Timothy Smith MD [address] [place] [address] (Wo rk) Scheduled Orders Name Type Priority [...] [facility] PFT FEV1-%Pred-Pre 74 % [facility] PFT [id number] 72 % [facility] PFT [id number] 81 % [facility] PFT FEFMax-Pred 6.90 L/sec [facility] PFT FEFMax-Pre 6.78 L/sec [facility] PFT FEFMax-%Pred-Pr 98 % [facility] PFT e [id number] 1.96 L/sec [facility] PFT [id number] 2.06 L/sec [facility] PFT [id number]-%Pred-P 105 % [facility] PFT re ExpTime-Pre 6.47 sec [facility] PFT FIFMax-Pre 5.17 L/sec [facility] PFT VC-Pred 4.23 L [facility] PFT VC-Pre 2.56 L [facility] PFT VC-%Pred-Pre 60 % [facility] PFT IC-Pred 4.20 L [facility] PFT IC-Pre 2.31 L [facility] PFT IC-%Pred-Pre 55 % [facility] PFT ERV-Pred 0.03 L [place] PFT ERV-Pre 0.25 L [facility] PFT ERV-%Pred-Pre 830 % [facility] PFT [id number] 76 % [facility] PFT [id number] 81 % [facility] PFT FRCPleth-Pred 3.68 L [...] [facility] PFT VA-%Pred-Pre 69 % [facility] PFT [id number] 65 % [facility] PFT [id number] 79 % [facility] PFT Specimen (Source) Anatomical Collection Method Collection Time Re ceived Time Location / / Volume Laterality 05/02/2018 3:23 PM CDT Timothy Smith MD PFT ORDERABLES Performing Organization Address City/State/ZIP Code Phon e Number [facility] PFT documented in this encounter Visit Diagnoses Diagnosis Persistent atrial fibrillation (H) - [facility] jing Atrial fibrillation documented in this encounter Care Teams Addiction Medicine Physician Relationship Specialty Start Date End Date [facility], [facility] PCP - General 01/16/18 07/01/18 [address] [place] [address] documented as of this encounter
--- OUTSIDE RECORDS SUMMARY | 2022-08-22 06:57 | XMS_ITS | Encounter Summary ---
:1940 Author Organization [place] Address [facility] [place] [address] Care Team Providers Name Role Phone Clinic, [facility] Primary Care Provider [phone] Reason for Visit Reason Onset Date Comments Clinic Care Coordination - Follow-up 05/31/2018 Encounter Details Date Type Department Care Team Description 05/31/2018 Telephone [facility] Heart Temitope Tamayo, Clinic Care Coordination Clinic Patt RN - Follow-up [address] [facility] [address] [place] [phone] Social [...] 08/31/2022 Appointment Respiratory Therapy Timothy Smith MD [address] [facility] [address] [address] [address] [place] [phone] (Wo rk) 09/28/2022 Lab Lab 09/28/2022 Office Visit Cardiology Timothy Smith MD [address] [place] [phone] Trudi Grayson APRN THERAPY ASSISTANT [address] [address] 11/16/2022 Ancillary Procedure Cardiology Timothy Smith MD [address] [place] [phone] (Wo rk) documented as of this encounter Visit Diagnoses Not on filedocumented in this encounter Care Teams Saddle Lining Stitcher Relationship Specialty Start Date End Date [facility], [facility] PCP - General 01/16/18 07/01/18 [address] [place] [phone] documented as of this encounter
--- OUTSIDE RECORDS SUMMARY | 2022-08-22 06:57 | XMS_ITS | Encounter Summary ---
:1940 Author Organization [place] Address [address] [place] [address] Care Team Providers Name Role Phone Clinic, [facility] Primary Care Provider [phone] Encounter Details Date Type Department Care Team Description 05/02/2018 Hospital Encounter [facility] Timothy Smith MD On amiodarone [facility] Laboratory [address] therapy [address] [place] [phone] Social History Tobacco Use Types Packs/Day Years [...] Respiratory Therapy Timothy Smith MD [address] [place] [phone] (Wo rk) 09/28/2022 Lab Lab 09/28/2022 Office Visit Cardiology Timothy Smith MD [address] [place] [phone] Trudi Grayson APRN SOUND RECORDIST [address] [address] 11/16/2022 Ancillary Procedure Cardiology Timothy Smith MD [address] [place] [address] (Wo rk) documented as of this encounter Procedures Procedure Name Priority Date/Time Associated Diagnosis Comme nts HEMOGLOBIN Routine 05/02/2018 3:59 PM On amiodarone therapy Results for this CDT procedure are i n the results section . documented in this encounter Results Hemoglobin FUTURE anytime (05/02/2018 3:59 PM CDT) athologist Signature Hemoglobin 13.6 13.3 - 17.7 05/02/[address] [facility] g/dL 4:02 PM CDT HOSPITAL Specimen Anatomical Collection Method Collection Time Receive d Time (Source) Location / / Volume Laterality Blood specimen 05/02/2018 3:59 PM 018 4:00 (specimen) CDT PM CDT Timothy Smith MD LAB - BLOOD ORDERABLES Performing Organization Address City/State/ZIP Code Phon e Number [facility] [address] [place], [place] [address] [facility] [address] [id number] [facility] [phone] documented in this encounter Visit Diagnoses Diagnosis On amiodarone therapy documented in this encounter Care Teams Farm Planner Relationship Specialty Start Date End Date [facility], Vinny [place] PCP - General 01/16/18 07/01/18 [address] [place] [address] documented as of this encounter
--- OUTSIDE RECORDS SUMMARY | 2022-08-22 06:57 | XMS_ITS | Encounter Summary ---
:1940 Author Organization [place] Address [address] [place] [address] Care Team Providers Name Role Phone Clinic, [facility] Primary Care Provider [phone] Reason for Visit Reason Onset Date Comments Clinic Care Coordination - Initial 05/30/2018 pre i nstructions for aflutter ablation scheduled for 05/31 Encounter Details Date Type Department Care Team Description 05/30/2018 Telephone [facility] Heart Temitope Tamayo, Clinic Care Coordination Clinic Patt RN - Initial (pre [address] [facility] [address] [facility] [address] aflutter ablation [place] [phone] scheduled for 05/31 ) [phone] Social History Tobacco Use Types Packs/Day Years [...] overnight after procedure. 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 and someone to stay [...] [address] [place] [phone] (Wo rk) 09/28/2022 Lab Lab 09/28/2022 Office Visit Cardiology Timothy Smith MD [address] [place] [address] Trudi Grayson APRN JOB TRACER [address] [place] [address] 11/16/2022 Ancillary Procedure Cardiology Timothy Smith MD [address] [place] [address] (Wo rk) documented as of this encounter Visit Diagnoses Not on filedocumented in this encounter Care Teams Nuclear Engineering Technician Relationship Specialty Start Date End Date [facility], Vinny [place] PCP - General 01/16/18 07/01/18 [address] [place] [phone] documented as of this encounter
--- OUTSIDE RECORDS SUMMARY | 2022-08-22 06:57 | XMS_ITS | Encounter Summary ---
:1940 Author Organization [place] Address [facility] [place] [address] Care Team Providers Name Role Phone Clinic, [facility] Primary Care Provider [phone] Reason for Visit CV Testing - Closed Specialty Diagnoses / Procedures Referred By Contact Refer red To Contact Cardiology Diagnoses Paroxysmal atrial fibrillation (H) Ischemic cardiomyopathy Mago Sotomayor, [place]AC[place] ROCKET ENGINE MECHANIC Zz Cv Echocard Procedures ECHO COMPLETE WITH OPTISON Echocardiogram [address] [facility] [place] [phone] [facility] [address] [place] [phone] Phone: Referral ID Status Reason Start Date Expiration Date Visits Requ ested Visits Authorized [id number] Closed 04/23/2018 04/23/2019 1 1 Encounter Details Date Type Department Care Team Description 04/30/2018 Hospital Encounter [place] Mago Mina, P aroxysmal atrial fibrillation (H); CV Echocardiography ELEVATOR TROUBLESHOOTEREvaristo ROLLE Ischemic cardiomyopathy [address] [facility] [address] [...] [address] [place] [phone] (Wo rk) 09/28/2022 Lab Lab 09/28/2022 Office Visit Cardiology Timothy Smith MD [address] [place] [phone] Trudi Grayson APRN ROCKET ENGINE MECHANIC [address] [id number] 11/16/2022 Ancillary Procedure Cardiology Timothy Smith MD [address] [place] [phone] (Wo rk) documented as of this encounter [...] AM CDT Narrative 04/30/2018 1:50 PM CDT [id number]^RESHMA^MAGO^N [facility] Echocardiography Laboratory [address] [facility] [address] [place] [address] Name: RADHA FAROOQ : 1940 Study Date: 04/30/2018 11:04 AM Age: 77 yrs Gender: Male Patient [place] [facility] [place] For Study: , Paroxysmal atrial fi brillation (H), Ischemic cardiomyopathy Ordering Physician: MAGO JUSTICE Referring Physician: MAGO JUSTICE Performed By: Kimberly Orantes ZEHRA BSA: 2.5 m2 Height: 71 in Weight: [...] note might be different from the original. [id number] [id number]^RESHMA^MAGO^N [facility] Heart Echocardiography Laboratory [address] [place] [address] [address] [place] [address] Name: RADHA FAROOQ : 1940 Study Date: 04/30/2018 11:04 AM Age: 77 yrs Gender: Male Patient [place] [facility] Reason For Study: , Paroxysmal atrial fi [...] by: Pop Pham 04/30/2018 01:50 PM Mago N Светлана ELEVATOR TROUBLESHOOTER ROCKET ENGINE MECHANIC CV ECHO ORDERABLES documented in this encounter [...] On Sun04/30/18 at 1200, For 1 dose, [facility] [phone] documented in this encounter Care Teams Control Panel Builder Relationship Specialty Start Date End Date [facility], Vinny Jaimes PCP - General 01/16/18 07/01/18 [address] [place] [phone] documented as of this encounter
--- OUTSIDE RECORDS SUMMARY | 2022-08-22 06:57 | XMS_ITS | Encounter Summary ---
:1940 Author Organization [place] Address [facility] [place] [address] Care Team Providers Name Role Phone Clinic, [facility] Primary Care Provider [phone] Encounter Details Date Type Department Care Team Description 05/28/2018 [facility] Heart Aravind Sunshine, Clinic Patt EL [address] [facility] [address] [place] [phone] Social History Tobacco Use Types Packs/Day Years [...] [address] [place] [phone] (Wo rk) 09/28/2022 Lab Lab 09/28/2022 Office Visit Cardiology Timothy Smith MD [address] [place] [phone] Trudi Grayson APRN CAFE ASSOCIATE [address] [address] 11/16/2022 Ancillary Procedure Cardiology Timothy Smith MD [address] [place] [address] (Wo rk) documented as of this encounter Visit Diagnoses Not on filedocumented in this encounter Care Teams Medical Technologist Microbiology Relationship Specialty Start Date End Date [facility], [facility] PCP - General 01/16/18 07/01/18 [address] Kristine Maravillajessica JaimesABELARDO [phone] documented as of this encounter
--- OUTSIDE RECORDS SUMMARY | 2022-08-22 06:57 | XMS_ITS | Encounter Summary ---
:1940 Author Organization [place] Address [facility] [place] [address] Care Team Providers Name Role Phone [facility], [facility] Primary Care Provider [phone] Encounter Details Date Type Department Care Team Description 05/03/2018 Orders Only [facility] Heart Isch emic cardiomyopathy; [facility] Persistent atrial fibrillati on (H) [address] [place], [place] [phone] Social History Tobacco Use Types Packs/Day Years Used Date Smoking Tobacco: Never Smokeless Tobacco: Never Alcohol Use Standard Drinks/Week Comments No 0 (1 standard drink = 0.6 oz pure alcoho l) Sex Assigned at Date Recorded Not on file documented as of this encounter Plan of Treatment Upcoming Encounters Date Type Specialty Care Team Description 08/31/2022 Appointment Respiratory Therapy Timothy Smith MD [address] [place] [phone] (Wo rk) 09/28/2022 Lab Lab 09/28/2022 Office Visit Cardiology Timothy Smith MD [address] [place] [phone] Trudi Grayson APRN FILM PRINTER [address] [phone] 11/16/2022 Ancillary Procedure Cardiology Timothy Smith MD [address] [place] [address] (Wo rk) documented as of this encounter [...] TSH 3.79 0.40 - 4.00 05/03/2018 [facility] mU/L 10:39 AM CDT HOSPITAL Specimen Anatomical Collection Method Collection Time Receive d Time (Source) Location / / Volume Laterality Blood specimen 05/03/2018 9:58 AM 018 9:59 (specimen) CDT AM CDT Timothy Smith MD LAB - BLOOD ORDERABLES Performing Organization Address City/State/ZIP Code Phon e Number [place] [address] [address] [facility] [address] [phone] (ABNORMAL) Hepatic panel (05/03/2018 9:58 AM CDT) Analysis Performed At Patho logist Time Signature Bilirubin Direct 0.4 (H) 0.0 - 0.2 05/03/2018 [place] mg/dL 10:33 AM [facility] Bilirubin Total 1.0 0.2 - 1.3 05/03/2018 [place] mg/dL 10:33 AM [facility] Albumin 3.7 3.4 - 5.0 05/03/2018 [place] g/dL 10:33 AM [facility] Protein Total 7.9 6.8 - 8.8 05/03/2018 [place] g/dL 10:33 AM [facility] Alkaline 29 (L) 40 - 150 05/03/2018 [place] Phosphatase U/L 10:33 AM [facility] ALT 31 0 - 70 U/L 05/03/2018 [facility] 10:33 AM [facility] AST 25 0 - 45 U/L 05/03/2018 [facility] 10:33 AM [facility] Specimen Anatomical Collection Method Collection Time Receive d Time (Source) Location / / Volume Laterality Blood specimen 05/03/2018 9:58 AM 018 9:59 (specimen) CDT AM CDT Timothy Smith MD LAB - BLOOD ORDERABLES Performing Organization Address City/State/ZIP Code Phon e Number [place] [address] [address] [facility] [address] [phone] (ABNORMAL) Basic metabolic panel (05/03/2018 9:58 AM CDT) athologist Signature Sodium 138 133 - 144 05/03/2018 [place] mmol/L 10:33 AM [facility] Potassium 4.5 3.4 - 5.3 05/03/2018 [place] mmol/L 10:33 AM [facility] Chloride 100 94 - 109 05/03/2018 [place] mmol/L 10:33 AM [facility] Carbon Dioxide 31 20 - 32 05/03/2018 [place] mmol/L 10:33 AM [facility] Anion Gap 7 3 - 14 05/03/2018 [place] mmol/L 10:33 AM [facility] Glucose 150 (H) 70 - 99 05/03/2018 [facility] mg/dL 10:33 AM [facility] Urea Nitrogen 34 (H) 7 - 30 05/03/2018 [facility] mg/dL 10:33 AM [facility] Creatinine 1.25 0.66 - 05/03/2018 [facility] 1.25 mg/dL 10:33 AM [facility] GFR Estimate 56 (L) >60 05/03/2018 [facility] mL/min/1.7 10:[address] Comment: Non GFR Calc GFR Estimate If 67 >60 mL/min/1.7m2 05/03/2018 10:33 AM [facility] Comment: GFR Calc Calcium 9.2 8.5 - 10.1 mg/dL 05/03/2018 10:33 AM [facility] Specimen Anatomical Collection Method Collection Time Receive d Time (Source) Location / / Volume Laterality Blood specimen 05/03/2018 9:58 AM 018 9:59 (specimen) CDT AM CDT Timothy Smith MD LAB - BLOOD ORDERABLES Performing Organization Address City/State/ZIP Code Phon e Number M [facility] [address] [address] [facility] [address] [phone] documented in this encounter Visit Diagnoses Diagnosis Ischemic cardiomyopathy Other specified forms of chronic ischemi c heart disease Persistent atrial fibrillation (H) Atrial fibrillation documented in this encounter Care Teams Emissions Inspector Relationship Specialty Start Date End Date [facility], Vinny Jaimes PCP - General 01/16/18 07/01/18 [address] [place] [phone] documented as of this encounter
--- OUTSIDE RECORDS SUMMARY | 2022-08-22 06:57 | XMS_ITS | Encounter Summary ---
:1940 Author Organization [place] Address [facility] [address] Care Team Providers Name Role Phone Clinic, [facility] Primary Care Provider [phone] Reason for Referral - Closed Specialty Diagnoses / Procedures Referred By Contact Refer red To Contact Diagnoses Typical atrial flutter (H) Timothy Smith MD [address] [place] [address] Referral ID Status Reason Start Date Expiration Date Visits Requ ested Visits Authorized [id number] Closed 05/31/2018 05/31/2019 1 1 Encounter Details Date Type Department Care Team Description 05/31/2018 Hospital Encounter [facility] Timothy Smith MD Typical atrial [facility] [address] flutter (H ) [address] [place] [address] [place] [address] [phone] Social History Tobacco Use Types Packs/Day Years [...] Smith MD [address] [place] [address] (Wo rk) 09/28/2022 Lab Lab 09/28/2022 Office Visit Cardiology Timothy Smith MD [address] [place] [address] Trudi Grayson APRN GRAPHICS SOFTWARE ENGINEER [address] [place] [address] 11/16/2022 Ancillary Procedure Cardiology Timothy Smith MD [address] [place] [address] (Wo rk) Scheduled Referrals Name Type Priority Associated Diagnoses Order S chedule Follow-Up with Referral Routine Typical atrial Expected: Employment Case Manager flutter (H) 07/30/20 18 (Approximate), Expires: 05/31/2019 [...] 12-lead, tracing only (05/31/2018 1:40 PM CDT) [facility] gist Method Time Signature Interpretation ECG Click View RADIOLOGY Image link RESULTS to view waveform and result Specimen (Source) Anatomical Collection Method Collection Time Re ceived Time Location / / Volume Laterality 05/31/2018 1:40 PM CDT Timothy Smith MD ECG ORDERABLES Performing Organization Address City/State/ZIP Code Phon e Number RADIOLOGY RESULTS EKG 12-lead, tracing only (05/31/2018 11:43 AM CDT) [facility] gist Method Time Signature Interpretation ECG Click View RADIOLOGY Image link RESULTS to view waveform and result Specimen (Source) Anatomical Collection Method Collection Time Re ceived Time Location / / Volume Laterality 05/31/2018 11:43 AM CDT Timothy Smith MD ECG ORDERABLES Performing Organization Address City/State/ZIP Code Phon e Number RADIOLOGY RESULTS (ABNORMAL) CBC with platelets (05/31/2018 11:30 AM CDT) Analysis Performed At [facility] logist Time Signature WBC 7.5 4.0 - 11.0 05/31/2018 [facility] 10e9/L 12:33 PM [facility] RBC Count 4.39 (L) 4.4 - 5.9 05/31/2018 [facility] 10e12/L 12:33 PM [facility] Hemoglobin 14.0 13.3 - 05/31/2018 [facility] 17.7 g/dL 12:33 PM [facility] Hematocrit 42.3 40.0 - 05/31/2018 [facility] 53.0 % 12:33 PM [facility] MCV 96 78 - 100 05/31/2018 [facility] fl 12:33 PM [facility] MCH 31.9 26.5 - 05/31/2018 [facility] 33.0 pg 12:33 PM [facility] MCHC 33.1 31.5 - 05/31/2018 [facility] 36.5 g/dL 12:33 PM [facility] RDW 14.8 10.0 - 05/31/2018 [facility] 15.0 % 12:33 PM [facility] Platelet Count 228 150 - 450 05/31/2018 [facility] 10e9/L 12:33 PM [facility] Specimen Anatomical Collection Method Collection Time Receive d Time (Source) Location / / Volume Laterality Blood specimen 05/31/2018 11:30 8 (specimen) AM CDT 12:30 PM CDT Timothy Smith MD LAB - BLOOD ORDERABLES Performing Organization Address City/State/ZIP Code Phon e Number [facility] [address] [place] [address] [phone] [facility] [address] [place] [address], [facility] [phone] (ABNORMAL) Basic metabolic panel (05/31/2018 11:30 AM CDT) P athologist Signature Sodium 140 133 - 144 05/31/2018 [facility] mmol/L 12:50 PM [facility] Potassium 4.2 3.4 - 5.3 05/31/2018 [facility] mmol/L 12:50 PM [facility] Chloride 104 94 - 109 05/31/2018 [facility] mmol/L 12:50 PM [facility] Carbon Dioxide 29 20 - 32 05/31/2018 [facility] mmol/L 12:50 PM [facility] Anion Gap 7 3 - 14 05/31/2018 [facility] mmol/L 12:50 PM [facility] Glucose 119 (H) 70 - 99 05/31/2018 [facility] mg/dL 12:50 PM [facility] Urea Nitrogen 27 7 - 30 05/31/2018 [facility] mg/dL 12:50 PM [facility] Creatinine 1.20 0.66 - 05/31/2018 [facility] 1.25 mg/dL 12:50 PM [facility] GFR Estimate 58 (L) >60 05/31/2018 [facility] mL/min/1.7 12:[address] Comment: Non GFR Calc GFR Estimate If 71 >60 mL/min/1.7m2 05/31/2018 12:50 PM [facility] Comment: GFR Calc Calcium 9.1 8.5 - 10.1 mg/dL 05/31/2018 12:50 PM [facility] Specimen Anatomical Collection Method Collection Time Receive d Time (Source) Location / / Volume Laterality Blood specimen 05/31/2018 11:30 8 (specimen) AM CDT 12:30 PM CDT Timothy Smith MD LAB - BLOOD ORDERABLES Performing Organization Address City/State/ZIP Code Phon e Number M [facility] [address] [place] [phone] [facility] [address] [address], [facility] [phone] documented in this encounter Visit Diagnoses Diagnosis [...] to any local anesthetic or an y gaibno product. Apply 30 minutes prior to VAD [...] VAD insertion or accessing implanted port, Starting 8/31/18 at 1124, For 365 days, Do NOT [...] Pre-procedure documented in this encounter Care Teams Fig Washer Relationship Specialty Start Date End Date [facility], [facility] PCP - General 01/16/18 07/01/18 [address] [place] [address] documented as of this encounter
--- OUTSIDE RECORDS SUMMARY | 2022-08-22 06:57 | XMS_ITS | Encounter Summary ---
:1940 Author Organization [place] Address [facility] [place] [address] Care Team Providers Name Role Phone Clinic, [facility] Primary Care Provider [phone] Reason for Visit Reason Onset Date Comments Refill Request 05/07/2018 needs a bridge to ar [place]-order script-sent to [facility] Encounter Details Date Type Department Care Team Description 05/07/2018 Refill [facility] Heart Zarina Smith MD Refill Request (needs a Clinic [place] [address] bridge to mail-order [address] [facility] [address] script-sent to [facility]) [address] [place] [address] [place] [phone] Social History Tobacco Use Types Packs/Day Years [...] Respiratory Therapy Timothy Smith MD [address] [place] [phone] (Wo rk) 09/28/2022 Lab Lab 09/28/2022 Office Visit Cardiology Timothy Smith MD [address] [place] [address] Trudi Grayson APRN CNP [address] [place] [id number] 11/16/2022 Ancillary Procedure Cardiology Timothy Smith MD [address] [place] [phone] (Wo rk) documented as of this encounter Visit Diagnoses Diagnosis Persistent atrial fibrillation (H) Atrial fibrillation documented in this encounter Care Teams Wood Cut Engraver Relationship Specialty Start Date End Date [facility], [facility] PCP - General 01/16/18 07/01/18 [address] [place] [address] documented as of this encounter
--- OUTSIDE RECORDS SUMMARY | 2022-08-22 06:57 | XMS_ITS | Encounter Summary ---
:1940 Author Organization [place] Address [facility] [place] [address] Care Team Providers Name Role Phone Clinic, [facility] Primary Care Provider [phone] Reason for Referral - Closed Specialty Diagnoses / Procedures Referred By Contact Refer red To Contact Diagnoses Paroxysmal atrial fibrillation (H) [facility] [address] [facility] [address] [place] [address] Referral ID Status Reason Start Date Expiration Date Visits Requ ested Visits Authorized [id number] Closed 05/20/2018 05/20/2019 1 1 Reason for Visit Reason Comments Clinic Care Coordination - Follow-up Encounter Details Date Type Department Care Team Description 05/07/2018 Care Coordination [facility] Brisa [facility] [place] V[place] RN Coordination - [address] [facility] Follow-up [facility] [address] [place] [address] Social History Tobacco Use Types Packs/Day [...] [address] [place] [address] (Wo rk) 09/28/2022 Lab Lab 09/28/2022 Office Visit Cardiology Timothy Smith MD [address] [place] [address] Trudi Grayson APRN RN HOUSE SUPERVISOR [address] [address] 11/16/2022 Ancillary Procedure Cardiology Timothy Smith MD [address] [place] [address] (Wo rk) Scheduled Referrals Name Type Priority Associated Diagnoses Order S chedule Follow-Up with Referral Routine Paroxysmal atrial Expected : 05/20/2018 Device Clinic fibrillation (H) (Approxima te), Expires: 2018 documented as of this encounter Visit Diagnoses Diagnosis Paroxysmal atrial fibrillation (H) - Ria jing Atrial fibrillation documented in this encounter Care Teams Supervisor Quality Control Relationship Specialty Start Date End Date Clinic, Vinny Jaimes PCP - General 01/16/18 07/01/18 [address] [place] [address] documented as of this encounter
--- OUTSIDE RECORDS SUMMARY | 2022-08-22 06:57 | XMS_ITS | Encounter Summary ---
:1940 Author Organization [place] Address [facility] [place] [address] Care Team Providers Name Role Phone Vinny Reinoso Primary Care Provider [phone] Encounter Details Date Type Department Care Team Description 06/11/2018 Documentation Only [facility] [place], [place] [id number] [facility] [address] [place] [phone] Social History Tobacco Use Types Packs/Day Years [...] Smith and also has seen Elda Oliver LANDSCAPE SUPERVISOR---had resent decrease in his lasix dose-Elda wanted pt to get a BMP 1 week after the medication decrease- He [place] of the [facility], and would like to have that done @ his PMD office- Vinny Jaimes-I faxed the order to [phone], and have asked them to fax results to my attention-yvette cummins 07-01-2018--I called Vinny @ [facility] to see if pt went in for labs(BMP) await the fax result or call from clinic RN-yvette cummins documented in this encounter Plan of Treatment Upcoming Encounters Date Type Specialty Care Team Description 08/31/2022 Appointment Respiratory Therapy Timothy Smith MD [address] [place] [address] (Wo rk) 09/28/2022 Lab Lab 09/28/2022 Office Visit Cardiology Timothy Smith MD [address] [place] [address] Trudi Grayson APRN SEISMOGRAPHER [address] [phone] 11/16/2022 Ancillary Procedure Cardiology Timothy Smith MD [address] [place] [phone] (Wo rk) documented as of this encounter Visit Diagnoses Not on filedocumented in this encounter Care Teams Contract Manager Relationship Specialty Start Date End Date [facility], Vinny Albertson PCP - General 01/16/18 07/01/18 [address] [place] [address] documented as of this encounter
--- OUTSIDE RECORDS SUMMARY | 2022-08-22 06:57 | XMS_ITS | Encounter Summary ---
:1940 Author Organization [place] Address [address] [place] [address] Care Team Providers Name Role Phone Clinic, [facility] Primary Care Provider [phone] Reason for Referral CV Testing - Closed Specialty Diagnoses / Procedures Referred By Contact Refer red To Contact Diagnoses Persistent atrial fibrillation (H) Ankur Smith MD Procedures Cardioversion [address] [place] [address] Referral ID Status Reason Start Date Expiration Date Visits Requ ested Visits Authorized [id number] Closed 05/07/2018 05/07/2019 1 1 Reason for Visit CV Testing - Closed Specialty Diagnoses / Procedures Referred By Contact Refer red To Contact Diagnoses Persistent atrial fibrillation (H) Ankur Smith MD Procedures Cardioversion [address] [place] [address] Referral ID Status Reason Start Date Expiration Date Visits Requ ested Visits Authorized [id number] Closed 05/07/2018 05/07/2019 1 1 Encounter Details Date Type Department Care Team Description 05/07/2018 Hospital Encounter [facility] Ankur Smith MD Persistent atrial [facility] [address] fibrillation (H) [address] [place] [address] [phone] Social History Tobacco Use Types Packs/Day Years [...] followup next week at the clinic with ADULT CAREGIVER. He will set up appt. documented in [...] performed under deep sedation assisted by the quarter seamer. The patches were placed in anterior and posterior fashion. A single shock of 200 joules successf ully converted to sinus rhythm. He had short runs of atrial fibrillation and atrial flutter post-cardioversion. There was no complication. ANKUR SMITH MD MT: CC Name: RADHA VILLA MRN: [id number] Account: [id number] : 1940 Procedure Date: 05/07/2018 Document: [id number] documented in this encounter Plan of Treatment Upcoming Encounters Date Type Specialty Care Team Description 08/31/2022 Appointment Respiratory Therapy Ankur Smith MD [address] [place] [phone] (Wo wade) 09/28/2022 Lab Lab 09/28/2022 Office Visit Cardiology Ankur Smith MD [address] [place] [address] Trudi Grayson APRN RETANNER [address] [address] 11/16/2022 Ancillary Procedure Cardiology Ankur Smith MD [address] [place] [address] (Wo wade) Scheduled Orders Name Type Priority [...] Glucose 162 (H) 70 - 99 05/07/2018 [facility] mg/dL 9:32 AM CDT [facility] Specimen Anatomical Collection Method Collection Time Receive d Time (Source) Location / / Volume Laterality Blood specimen 05/07/2018 8:58 AM 018 9:13 (specimen) CDT AM CDT Serge De Leon MD LAB - BLOOD ORDERABLES Performing Organization Address City/[facility]/ZIP Code Phon e Number [facility] [address] [place] [address] [phone] [facility] [address] [place] [address], [place] [phone] Potassium level (05/07/2018 8:58 AM CDT) athologist Signature Potassium 3.7 3.4 - 5.3 05/07/2018 [place] mmol/L 9:32 AM CDT [facility] Specimen Anatomical Collection Method Collection Time Receive d Time (Source) Location / / Volume Laterality Blood specimen 05/07/2018 8:58 AM 018 9:13 (specimen) CDT AM CDT Ankur Smith MD LAB - BLOOD ORDERABLES Performing Organization Address City/State/ZIP Code Phon e Number M [facility] [address] [place] [address] [phone] [facility] [address] [place] [address], [place] [phone] Magnesium level (05/07/2018 8:58 AM CDT) athologist Signature Magnesium 1.7 1.6 - 2.3 05/07/2018 [place] mg/dL 9:32 AM CDT [facility] Specimen Anatomical Collection Method Collection Time Receive d Time (Source) Location / / Volume Laterality Blood specimen 05/07/2018 8:58 AM 018 9:13 (specimen) CDT AM CDT Ankur Smith MD LAB - BLOOD ORDERABLES Performing Organization Address City/State/ZIP Code Phon e Number M [facility] [address] [place] [address] [phone] [facility] [address] [place] [place] [address], [facility] [phone] documented in this encounter Visit Diagnoses Diagnosis Persistent atrial fibrillation (H) Atrial fibrillation documented in this encounter Administered Medications Inactive Administered Medications - up to 3 most recent administrations Medication Order MAR Action Action Date Dose Rate Site lactated ringers infusion New Bag 05/07/2018 9:45 AM CDT 10 mL/hr at 10 mL/hr, Intravenous, ONCE, Pre-procedure, 1 dose, On 05/07/18 at 0845 lidocaine 1 % 0.5 mg Given 05/07/2018 9:45 AM CDT 0.5 mg 0.5 mg, Subcutaneous, ONCE, On Sun05/07/18 at 0845, For 1 dose, Pre-procedure documented in this encounter Care Teams Community Theater Actor Relationship Specialty Start Date End Date Clinic, Vinny Jaimes PCP - General 01/16/18 07/01/18 [address] [place] [phone] documented as of this encounter
--- OUTSIDE RECORDS SUMMARY | 2022-08-22 06:57 | XMS_ITS | Encounter Summary ---
:1940 Author Organization [place] Address [address] [facility] [place] [address] Care Team Providers Name Role Phone [facility] [place] Primary Care Provider [phone] Reason for Visit (Routine) - Closed Specialty Diagnoses / Procedures Referred By Contact Refer red To Contact Respiratory Therapy Diagnoses 05/01 Dr. Smith wanted patient to get in before the end of the week. Persistent Atrial Fibrillation. Rh Respiratory Ther Procedures PULMONARY FUNCTION TEST [address] [place] [address] Phone: Referral ID Status Reason Start Date Expiration Date Visits Requ ested Visits Authorized [id number] Closed 05/02/2018 05/02/2019 1 1 Encounter Details Date Type Department Care Team Description 05/02/2018 Hospital Encounter [facility] Timothy Smith MD On amiodarone therapy (Primary Dx); [facility] Respiratory [address] Persis tent atrial fibrillation (H) Therapy [address] [place] [address] [place], [place] [phone] [address] (Work) [phone] Social History Tobacco Use Types Packs/Day Years [...] to this report. REFERRING PHYSICIAN: Timothy Smith [employer] ARTISTIC DIRECTOR: Guera Hinojosa DIAGNOSIS: Amiodarone Therapy, Atrial Fibrillation, [...] MD MT: TALIA Name: RADHA VILLA Account: [id number] : 1940 Procedure Date: 05/02/2018 Document: [id number] cc: [facility] Timothy Smith MD documented in this encounter Plan of Treatment Upcoming Encounters Date Type Specialty Care Team Description 08/31/2022 Appointment Respiratory Therapy Timothy Smith MD [address] [place] [address] (Wo rk) 09/28/2022 Lab Lab 09/28/2022 Office Visit Cardiology Timothy Smith MD [address] [place] [address] Trudi Grayson APRN CURB SETTER [address] [place] [address] 11/16/2022 Ancillary Procedure Cardiology Timothy Smith MD [address] [place], [place] [address] (Wo rk) Scheduled Orders Name Type Priority [...] 6. Correlate clinically JULIANNA VAZQUEZ MD MT: U Name: RADHA VILLA Account: [id number] : 1940 Procedure Date: 05/02/20 18 Document: [id number] cc: [facility] Timothy Smith MD Julianna Vazquez MD PFT ORDERABLES Hemoglobin FUTURE anytime (05/02/2018 3:59 PM CDT) athologist Signature Hemoglobin 13.6 13.3 - 17.7 05/02/2018 [facility] g/dL 4:02 PM CDT HOSPITAL Specimen Anatomical Collection Method Collection Time Receive d Time (Source) Location / / Volume Laterality Blood specimen 05/02/2018 3:59 PM 018 4:00 (specimen) CDT PM CDT Timothy Smith MD LAB - BLOOD ORDERABLES Performing Organization Address City/State/ZIP Code Phon e Number M [place] [address] [address] [place] [address] [place] [address] [phone] General PFT Lab (Please always keep checked) (05/02/2018 3:23 PM CDT) athologist Signature FVC-Pred 3.67 L [facility] [facility] FVC-Pre 2.49 L [place] [facility] FVC-%Pred-Pre 67 % [place] [facility] FEV1-Pre 2.03 L [place] [facility] FEV1-%Pred-Pre 74 % [place] [facility] [id number]-Nuim 72 % [place] [facility] TBP3NDE-Usp 81 % [place] [facility] FEFMax-Pred 6.90 L/sec [place] [facility] FEFMax-Pre 6.78 L/sec [place] [facility] FEFMax-%Pred-Pr 98 % [place] PFT e [id number] 1.96 L/sec [place] [facility] [id number] 2.06 L/sec [facility] [facility] JWF8792-%Pred-P 105 % [facility] [facility] re ExpTime-Pre 6.47 sec [facility] [facility] FIFMax-Pre 5.17 L/sec [place] [facility] VC-Pred 4.23 L [place] [facility] VC-Pre 2.56 L [place] [facility] VC-%Pred-Pre 60 % [facility] [facility] IC-Pred 4.20 L [place] [facility] IC-Pre 2.31 L [place] [facility] IC-%Pred-Pre 55 % [place] [facility] ERV-Pred 0.03 L [place] [facility] ERV-Pre 0.25 L [place] [facility] ERV-%Pred-Pre 830 % [facility] P[facility] TIT3OSZ2-Yfpt 76 % [place] PFT [id number]-Aii 81 % [place] PFT FRCPleth-Pred 3.68 L [...] [place] [facility] VA-%Pred-Pre 69 % [place] P[facility] QOG2LST-Xfco 65 % [place] [facility] [id number]-Avr 79 % [facility] Specimen (Source) Anatomical Collection Method Collection Time Re ceived Time Location / / Volume Laterality 05/02/2018 3:23 PM CDT Timothy Smith MD PFT ORDERABLES Performing Organization Address City/State/ZIP Code Phon e Number [facility] documented in this encounter Visit Diagnoses Diagnosis On amiodarone therapy - Primary Persistent atrial fibrillation (H) Atrial fibrillation documented in this encounter Care Teams Freight Dispatcher Relationship Specialty Start Date End [facility] - [facility] 01/16/18 07/01/18 [address] [place] [address] documented as of this encounter
--- OUTSIDE RECORDS SUMMARY | 2022-08-22 06:57 | XMS_ITS | Encounter Summary ---
:1940 Author Organization [place] Address [address] [facility] [place] [address] Care Team Providers Name Role Phone Clinic, [facility] Primary Care Provider [phone] Reason for Referral Diagnostic Imaging XR - Closed Specialty Diagnoses / Procedures Referred By Contact Refer red To Contact Radiology. Diagnoses Persistent atrial fibrillation (H) Timothy Smith MD Rh Xray Procedures XR Chest [address] [address] Phone: Fax: Referral ID Status Reason Start Date Expiration Date Visits Requ ested Visits Authorized [id number] Closed 05/02/2018 05/07/2019 1 1 Reason for Visit Diagnostic Imaging XR - Closed Specialty Diagnoses / Procedures Referred By Contact Refer red To Contact Radiology. Diagnoses Persistent atrial fibrillation (H) Timothy Smith MD Rh Xray Procedures XR Chest [address] [place] [address] [address] Phone: Fax: Referral ID Status Reason Start Date Expiration Date Visits Requ ested Visits Authorized [id number] Closed 05/02/2018 05/07/2019 1 1 Encounter Details Date Type Department Care Team Description 05/02/2018 Hospital Encounter [facility] Timothy Smith MD Persistent atrial [facility] [address] fibrillation (H) [address] [facility] [place] [address] Social History Tobacco Use Types Packs/Day [...] Respiratory Therapy Timothy Smith MD [address] [place] [phone] (Wo rk) 09/28/2022 Lab Lab 09/28/2022 Office Visit Cardiology Timothy Smith MD [address] [place] [address] Trudi Grayson APRN FLIGHT ENGINEER INSTRUCTOR [address] [address] 11/16/2022 Ancillary Procedure Cardiology Timothy Smith MD [address] [place] [address] (Wo rk) documented as of this encounter [...] fibrillation documented in this encounter Care Teams Sanitarian Aide Relationship Specialty Start Date End Date [facility] PCP - General 01/16/18 07/01/18 [address] [place] [address] documented as of this encounter
--- OUTSIDE RECORDS SUMMARY | 2022-08-22 06:57 | XMS_ITS | Encounter Summary ---
:1940 Author Organization [place] Address [facility] [place] [address] Care Team Providers Name Role Phone Clinic, [facility] Primary Care Provider [phone] Encounter Details Date Type Department Care Team Description 05/07/2018 Hospital Encounter [facility] Timothy Smith MD [facility] PACU [address] [place] [address] [place] [address] [phone] (Wo rk) Social History Tobacco Use Types [...] Respiratory Therapy Timothy Smith MD [address] [place] [phone] (Wo rk) 09/28/2022 Lab Lab 09/28/2022 Office Visit Cardiology Timothy Smith MD [address] [place] [phone] Trudi Grayson APRN CREDIT AND COLLECTION MANAGER [address] [phone] 11/16/2022 Ancillary Procedure Cardiology Timothy Smith MD [address] [place] [address] (Wo rk) documented as of this encounter Visit Diagnoses Not on filedocumented in this encounter Care Teams Billet Recorder Relationship Specialty Start Date End Date [facility], [facility] PCP - General 01/16/18 07/01/18 [address] [place] [address] documented as of this encounter
--- OUTSIDE RECORDS SUMMARY | 2022-08-22 06:57 | XMS_ITS | Encounter Summary ---
:1940 Author Organization [place] Address [facility] [place] [address] Care Team Providers Name Role Phone Clinic, [facility] Primary Care Provider [phone] Reason for Visit Reason Onset Date Comments Clinic Care Coordination - Follow-up 05/31/2018 [facility] low up appt Encounter Details Date Type Department Care Team Description 05/31/2018 Telephone [facility] Temitope Tamayo, Clinic Care Coordination Clinic Patt RN - Follow-up (follow up 2513 [facility] appt) [facility] [address] [place] [address] Social History Tobacco Use Types [...] 08/31/2022 Appointment Respiratory Therapy Timothy Smith MD [address] [place] [address] (Wo rk) 09/28/2022 Lab Lab 09/28/2022 Office Visit Cardiology Timothy Smith MD [address] [place] [address] Trudi Grayson APRN CHIEF BANK EXAMINER [address] [phone] 11/16/2022 Ancillary Procedure Cardiology Timothy Smith MD [address] [place] [phone] (Wo rk) documented as of this encounter Visit Diagnoses Not on filedocumented in this encounter Care Teams Charger Relationship Specialty Start Date End Date [facility], Vinny Jaimes PCP - General 01/16/18 07/01/18 [address] [place] [address] documented as of this encounter
--- OUTSIDE RECORDS SUMMARY | 2022-08-22 06:57 | XMS_ITS | Encounter Summary ---
:1940 Author Organization [place] Address Counts include 234 beds at the [facility]0 [facility] [place] [address] Care Team Providers Name Role Phone Clinic, [facility] Primary Care Provider [phone] Reason for Visit Reason Onset Date Comments Results 05/08/2018 baseline [facility] testin g/ BPM- order plaed for repeat BMP when in to see Elda due to r ising BUN Encounter Details Date Type Department Care Team Description 05/08/2018 Telephone [facility] Elda Johnson Results (baseline [facility] Shilpi Montoya APRN SELF RISING FLOUR MIXER testing/ BPM- order [address] [facility] [address] [facility] plaed for repeat BMP [facility] [address] [place] [address] [place] [phone] due to rising BUN) [phone] Social History Tobacco Use Types Packs/Day Years [...] Smith MD [address] [place] [phone] (Wo rk) 09/28/2022 Lab Lab 09/28/2022 Office Visit Cardiology Timothy Smith MD [address] [place] [address] Trudi Grayson APRN SELF RISING FLOUR MIXER [address] [place] [address] 11/16/2022 Ancillary Procedure Cardiology Timothy Smith MD [address] [place] [address] (Wo rk) documented as of this encounter Results (ABNORMAL) Basic metabolic panel (05/21/2018 2:05 PM CDT) Analysis Performed At [facility] Time Signature Sodium 141 136 - 145 05/21/2018 [facility] mmol/L 3:31 PM CDT [facility] A Potassium 4.7 3.5 - 5.1 05/21/2018 [facility] mmol/L 3:31 PM CDT [facility] A Chloride 101 98 - 107 05/21/2018 [facility] mmol/L 3:31 PM CDT [facility] Carbon Dioxide 31 (H) 23 - 29 05/21/2018 [facility] mmol/L 3:31 PM CDT [facility] Anion Gap 13.7 6 - 17 05/21/2018 [facility] mmol/L 3:31 PM CDT [facility] A Glucose 154 (H) 70 - 105 05/21/2018 [facility] mg/dL 3:31 PM CDT [facility] A Urea Nitrogen 44 (H) 7 - 30 05/21/2018 [facility] mg/dL 3:31 PM CDT [facility] A Creatinine 2.03 (H) 0.70 - 05/21/2018 [facility] 1.30 mg/dL 3:31 PM CDT [facility] A GFR Estimate 32 (L) >60 05/21/2018 [facility] mL/min/1.7 3:31 PM CDT [facility] m2 A GFR Estimate If 39 (L) >60 05/21/2018 [facility] Black mL/min/1.7 3:31 PM CDT [facility] m2 A Calcium 10.3 8.5 - 10.5 05/21/2018 [facility] mg/dL 3:31 PM CDT [facility] A Specimen Anatomical Collection Method Collection Time Receive d Time (Source) Location / / Volume Laterality Blood specimen 05/21/2018 2:05 PM 018 2:07 (specimen) CDT PM CDT Elda Johnson APRN SELF RISING FLOUR MIXER LAB - BLOOD ORDERABL ES Performing Organization Address City/State/ZIP Code Phon e Number [facility] [address] [address] [address] documented in this encounter Visit Diagnoses Diagnosis CAD (coronary artery disease) - Primary Coronary atherosclerosis of unspecified type of vessel, [place] or graft documented in this encounter Care Teams Brick Loader Relationship Specialty Start Date End Date Clinic, Vinny Jaimes PCP - General 01/16/18 07/01/18 [address] [place] [address] documented as of this encounter
--- OUTSIDE RECORDS SUMMARY | 2022-08-22 06:57 | XMS_ITS | Encounter Summary ---
:1940 Author Organization [place] Address [facility] [place] [address] Care Team Providers Name Role Phone Clinic, [facility] Primary Care Provider [phone] Encounter Details Date Type Department Care Team Description 05/07/2018 Anesthesia Event [facility] Ryann Chino MD [facility] [address] [address] [facility] Ginger Santana, FLACO PATTERN RULER [address] 168[address] [address] [phone] Anesthesia Record Procedure Summary Procedure Name Responsible Anesthesia Start Anesthesia Stop Anesthesiologist Time Time ECHO CARDIOVERSION - Derek Chino, 05/07/18 0951 0958 ECHO DEPARTMENT Events Date Time Event Comment 05/07/2018 0951 An Start 0951 An Start Data 0951 Quick Note Diagnosis:atriaL fibrillation Procedure: Cardioversion Help Desk Supervisor:Dr Smith Location:[facility] PACU room 12 0952 An Induction [...] 0 105 by Airway Easy; Ginger Mclaughlin BASKET PERSON Inpatient, Nurse PATTERN RULER documented in this encounter Social History Tobacco [...] Reported, Patient Current Facility-Administered Medications Ordered in [facility] Medication Dose Route Frequency Last Rate Last Dose ??? propofol (DIPRIVAN) injection 10 mg/mL vial PRN 70 mg at 05/07/18 0952 No current [facility]-ordered outpatient prescriptions on file. Wt [...] for input(s): ABO, RH in the last 88342 hours. Recent Labs Lab Test 02/04/16 1203 02/27/13 1145 INR 1.00 2.66* Recent Labs Lab Test 02/03/16 0450 02/03/16 0140 02/02/16 2140 TROPI 0.395* 0.441* 0.407* No results for input(s): PH, PCO2, PO2, HCO3 in the last 99644 hours. No results for input(s): HCG in the last 81718 hours. Recent Results (from the past 744 [...] MD [address] [place] [address] (Wo rk) 09/28/2022 Lab Lab 09/28/2022 Office Visit Cardiology Timothy Smith MD [address] [place] [address] Trudi Grayson APRN J2EE SOFTWARE ENGINEER [address] [address] 11/16/2022 Ancillary Procedure Cardiology Timothy Smith MD [address] [place] [address] (Wo rk) documented as of this encounter Visit Diagnoses Not on filedocumented in this encounter Administered Medications Inactive Administered Medications - up to 3 most recent administrations Medication Order MAR Action Action Date Dose Rate Site propofol (DIPRIVAN) injection 10 Given 05/07/2018 9:52 AM CDT 70 mg mg/mL vial PRN, Starting on Sun05/07/18 at 0952, Anesthesia Intra-op documented in this encounter Care Teams Blocking Machine Operator Second Relationship Specialty Start Date End Date [facility] [place] PCP - General 01/16/18 07/01/18 [address] [place] [address] documented as of this encounter
--- OUTSIDE RECORDS SUMMARY | 2022-08-22 06:58 | XMS_ITS | Encounter Summary ---
:1940 Author Organization [place] Address [facility] [place] [address] Care Team Providers Name Role Phone Clinic, [facility] Primary Care Provider [phone] Reason for Referral - Closed Specialty Diagnoses / Procedures Referred By Contact Refer red To Contact Diagnoses SOB (shortness of breath) Ankur Smith MD [address] [place] [address] Referral ID Status Reason Start Date Expiration Date Visits Requ ested Visits Authorized [id number] Closed 01/23/2018 01/23/2019 1 1 V Testing - Closed Specialty Diagnoses / Procedures Referred By Contact Refer red To Contact Cardiology Diagnoses SOB (shortness of breath) Ankur Smith MD [facility] Procedures Holter Monitor 24 hour - Adult [address] [employer] [address] [address] [place] [address] [address] [place] [address] Phone: Fax: Referral ID Status Reason Start Date Expiration Date Visits Requ ested Visits Authorized [id number] Closed 01/17/2018 01/23/2019 1 1 Reason for Visit Reason Comments Annual Visit f/u OV for AF - Closed Specialty Diagnoses / Procedures Referred By Contact Refer red To Contact Diagnoses Typical atrial flutter (H) Ankur Smith MD [address] [place] [address] Referral ID Status Reason Start Date Expiration Date Visits Requ ested Visits Authorized [id number] Closed 12/19/2017 12/19/2018 1 1 Encounter Details Date Type Department Care Team Description 01/16/2018 Office Visit [facility] Ankur Smith MD SOB (shortness of breath) (Primary Dx); [facility] [place] [address] Typical atrial flutter (H) [address] [facility] [address] [facility] [address] [place] [address] [place] [phone] Social History Tobacco Use Types Packs/Day Years [...] followup of atrial fibrillation. He is a 23-napg-yqaqkmer male who had a pacemaker implanted for [...] medications for the next clinic visit. ANKUR SMIHT MD MT: AISHWARYA Name: RADHA VILLA Account: [id number] : 1940 Service Date: 01/16/2018 Document: [id number] Ankur Smith MD - 01/16/2018 9:45 AM [...] Neurological: Psych: CC Ankur Smith MD [address] [place] [address] documented in this encounter Plan of Treatment Upcoming Encounters Date Type Specialty Care Team Description 08/31/2022 Appointment Respiratory Therapy Ankur Smith MD [address] [place] [address] (Wo rk) 09/28/2022 Lab Lab 09/28/2022 Office Visit Cardiology Ankur Smith MD [address] [place] [address] Trudi Grayson APRN CLICKER OPERATOR [address] [place] [address] 11/16/2022 Ancillary Procedure Cardiology Ankur Smith MD [address] [place] [address]115 (Wo rk) Scheduled Referrals Name Type Priority [...] [facility] mmol/L 10:46 AM CDT [facility] A Potassium 4.4 3.5 - 5.1 01/23/2018 [facility] mmol/L 10:46 AM CDT [facility] Chloride 101 98 - 107 01/23/2018 [facility] mmol/L 10:46 AM CDT [facility] Carbon Dioxide 29 23 - 29 01/23/2018 [facility] mmol/L 10:46 AM CDT [facility] Anion Gap 15.4 6 - 17 01/23/2018 [facility] mmol/L 10:46 AM CDT [facility] Glucose 152 (H) 70 - 105 01/23/2018 [facility] mg/dL 10:46 AM CDT [facility] A Urea Nitrogen 27 7 - 30 01/23/2018 [facility] mg/dL 10:46 AM CDT [facility] A Creatinine 1.27 0.70 - 01/23/2018 [facility] 1.30 mg/dL 10:46 AM CDT [facility] A GFR Estimate 55 (L) >60 01/23/2018 [facility] mL/min/1.7 10:46 AM CDT [facility] m2 A GFR Estimate If 66 >60 01/23/2018 [facility] Black mL/min/1.7 10:46 AM CDT [facility] m2 A Calcium 10.1 8.5 - 10.5 01/23/2018 [facility] mg/dL 10:46 AM CDT [facility] A Specimen Anatomical Collection Method Collection Time Receive d Time (Source) Location / / Volume Laterality Blood specimen 01/23/2018 9:50 AM 018 9:51 (specimen) CDT AM CDT Ankur Smith MD LAB - BLOOD ORDERABLES Performing Organization Address City/State/ZIP Code Phon e Number [facility] [address] [address] [address] Holter Monitor 24 hour - Adult (01/21/2018 10:09 AM CDT) [facility]ist Method Time Signature Interpretation Click View RADIOLOGY Iuss Master Analyst Image link RESULTS to view waveform and [...] flutter documented in this encounter Care Teams Route Aide Relationship Specialty Start Date End Date Clinic, Vinny Jaimes PCP - General 01/16/18 07/01/18 [address] [place] [address] documented as of this encounter
--- OUTSIDE RECORDS SUMMARY | 2022-08-22 06:58 | XMS_ITS | Encounter Summary ---
:1940 Author Organization [place] Address [facility] [place] [address] Care Team Providers Name Role Phone Graham Licona MD Primary Care Provider Reason for Visit Reason Onset Date Comments Refill Request 05/25/2017 eliquis Encounter Details Date Type Department Care Team Description 05/25/2017 Refill [facility] Heart Zarina Smith MD Refill Request (eliquis) Clinic [place] [address] [place] [id number] [address] [place] [address] [place] [phone] Social History Tobacco Use Types Packs/Day Years Used Date Smoking Tobacco: Never Alcohol Use Standard Drinks/Week Comments No 0 (1 standard drink = 0.6 oz pure alcoho l) Sex Assigned at Date Recorded Not on file documented as of this encounter Plan of Treatment Upcoming Encounters Date Type Specialty Care Team Description 08/31/2022 Appointment Respiratory Therapy Timothy Smith MD [address] [place] [phone] (Wo rk) 09/28/2022 Lab Lab 09/28/2022 Office Visit Cardiology Timothy Smith MD [address] [place] [phone] Trudi Grayson APRN REGRINDER [address] [place] [address] 11/16/2022 Ancillary Procedure Cardiology Timothy Smith MD [address] [place] [address] (Wo rk) documented as of this encounter Visit Diagnoses Diagnosis Paroxysmal atrial fibrillation (H) Atrial fibrillation documented in this encounter Care Teams Pecan Cleaner Relationship Specialty Start Date End Date Graham Licona MD PCP - General Family Practice 04/13/17 01/15/18 [facility] [address] [place] [address] documented as of this encounter
--- OUTSIDE RECORDS SUMMARY | 2022-08-22 06:58 | XMS_ITS | Encounter Summary ---
:1940 Author Organization [place] Address [address] [facility] [place] [address] Care Team Providers Name Role Phone Graham Licona MD Primary Care Provider Reason for Visit Reason Onset Date Comments Prior Auth - Medication 12/28/2017 apixaban ANTICOA GULANT (ELIQUIS) 5 MG tablet -TIER EXCEPTION approved Encounter Details Date Type Department Care Team Description 12/28/2017 Telephone [facility] Timothy Smith MD Prior Auth - Medication [facility] [place] [address] (apixaban ANTICOAGULANT [address] (ELIQUIS) 5 MG tablet [facility] [address] [place] [address] -TIER EXCEPTION approved [place] [id number] ) Social History Tobacco Use Types Packs/Day [...] Reference #: CMM GALICIA [id number] Insurance Company: [employer] [phone] Which Pharmacy is filling the prescription (Not needed for infusion/clinic administered): [facility] [address] [place], [place] - [address] [employer] [facility]acy Notified: Yes Patient Notified: No Telephone Encounter - Janette Archer - 01/02/2018 3:58 PM CDT Images from the original note were not included. Central Prior Authorization Team PA Initiation Medication: apixaban ANTICOAGULANT (ELIQUIS) 5 MG tablet -TIER EXCEPTION Insurance Company: [employer] - Pharmacy Filling the Rx: [facility] - [place], [place] - [address] [employer] Filling Pharmacy Filling Pharmacy Start Date: 01/02/2018 Telephone Encounter - Latesha Rider - 12/28/2017 3:03 PM CDT Central Prior Authorization Team Received call from patient. He states his copay is now $590.00 and needs another tier exception. Patient's phone: [phone] documented in this encounter Plan of Treatment Upcoming Encounters Date Type Specialty Care Team Description 08/31/2022 Appointment Respiratory Therapy Timothy Smith MD [address] [place] [phone] (Wo rk) 09/28/2022 Lab Lab 09/28/2022 Office Visit Cardiology Timothy Smith MD [address] [place] [address] Trudi Grayson APRN LAN ADMINISTRATOR [address] [address] 11/16/2022 Ancillary Procedure Cardiology Timothy Smith MD [address] [place] [address] (Wo rk) documented as of this encounter Visit Diagnoses Not on filedocumented in this encounter Care Teams Bleach Range Operator Relationship Specialty Start Date End Date Graham Licona MD PCP - General Family Practice 04/13/17 01/15/[address] [facility] [address] [place] [address] documented as of this encounter
--- OUTSIDE RECORDS SUMMARY | 2022-08-22 06:58 | XMS_ITS | Encounter Summary ---
:1940 Author Organization [place] Address [address] [facility] [place] [address] Care Team Providers Name Role Phone Graham Licona MD Primary Care Provider Reason for Visit Reason Onset Date Comments Prior Auth - Medication 05/10/2017 apixaban ANTICOA GULANT (ELIQUIS) 5 MG tablet - Tier Exception Appro chikis Encounter Details Date Type Department Care Team Description 05/10/2017 Telephone [facility] Timothy Smith MD Prior Auth - Medication [facility] [place] [address] (apixaban ANTICOAGULANT [address] (ELIQUIS) 5 MG tablet - [facility] [address] [place], [place] [address] Tier Exception Approved) [place] [phone] Social History Tobacco Use Types Packs/Day Years [...] Exception Approved Approved Dose/Quantity: Reference #: Insurance Attenex: [employer] [phone] Expected CoPay: $1.00 patient p/u meds on 05/23/17 CoPay Card Available: [facility] Assistance Needed: Which Pharmacy is filling the prescription (Not needed for infusion/clinic administered): [facility] [address] [place] [phone] [facility] Pharmacy Notified: Yes Patient Notified: Yes Telephone Encounter - Yareli Tamez - 05/28/2017 9:30 AM CDT Images from the original note were not included. Telephone Encounter - Yareli Tamez - 05/16/2017 11:28 AM CDT Images from the original note were not included. [facility] Prior Authorization Team Tier Exception Initiation Medication: apixaban ANTICOAGULANT (ELIQUIS) 5 MG tablet Insurance Company: [employer] - Pharmacy Filling the Rx: [facility] [address] [place] [address] [facility] Filling Pharmacy Filling Pharmacy Fax: Start Date: 05/16/2017 documented in this encounter Plan of Treatment Upcoming Encounters Date Type Specialty Care Team Description 08/31/2022 Appointment Respiratory Therapy Timothy Smith MD [address] [place] [phone] (Wo rk) 09/28/2022 Lab Lab 09/28/2022 Office Visit Cardiology Timothy Smith MD [address] [place] [address] Trudi Grayson APRN CONTRACT NEGOTIATOR [address] [address] 11/16/2022 Ancillary Procedure Cardiology Timothy Smith MD [address] [place] [address] (Wo rk) documented as of this encounter Visit Diagnoses Not on filedocumented in this encounter Care Teams Manager Law Relationship Specialty Start Date End Date Graham Licona MD PCP - General Family Practice 04/13/17 01/15/18 [facility] [address] [place] [address] documented as of this encounter
--- OUTSIDE RECORDS SUMMARY | 2022-08-22 06:58 | XMS_ITS | Encounter Summary ---
:1940 Author Organization [place] Address [facility] [place] [address] Care Team Providers Name Role Phone Graham Licona MD Primary Care Provider Reason for Visit Reason Comments Pacemaker Check PPM Latitude NXT Encounter Details Date Type Department Care Team Description 10/22/2017 Allied Health/Nurse [facility] Pac emaker Check (PPM Visit [facility] [place] Latitude NXT) [address] [place] [address] [address] [place] [address] Social History Tobacco Use Types Packs/Day Years Used Date Smoking Tobacco: Never Alcohol Use Standard Drinks/Week Comments No 0 (1 standard drink = 0.6 oz pure alcoho l) Sex Assigned at Date Recorded Not on file documented as of this encounter Progress Notes Sary Riojas - 10/22/2017 3:30 PM CST [place] Jaret VALLES L121 (S) Remote PPM Device Check STORE RECEIVER: 11% Mode: VVIR Presenting Rhythm: STORE RECEIVER Heart Rate: historgram shows heart rates 60 [...] answer, left message with results. KOlson CVT GER OF HEALTH documented in this encounter Plan of Treatment Upcoming Encounters Date Type Specialty Care Team Description 08/31/2022 Appointment Respiratory Therapy Timothy Smith MD [address] [place] [address] (Wo rk) 09/28/2022 Lab Lab 09/28/2022 Office Visit Cardiology Timothy Smith MD [address] [place] [address] Trudi Grayson APRN ORDER BOOKER [address] [address] 11/16/2022 Ancillary Procedure Cardiology Timothy Smith MD [address] [place] [address] (Wo rk) documented as of this encounter Procedures Procedure Name Priority Date/Time Associated Diagnosis Comme [facility] PM DEVICE Routine 10/22/2017 8:41 AM Cardiac pacemaker in INTERROGATE REMOTE, UP MANAGER OF HEALTH situ TO 90 DAYS, LEAD/LEADLESS HC INTERR DEVICE EVAL Routine 10/22/2017 Cardiac pacemaker i n REMOTE, PM/LDLS PM/ICD, situ UP TO 90 DAYS documented in this encounter Results INTERROGATION DEVICE EVAL REMOTE, PACER/ICD (71324) (10/22/2017) Narrative This result has an attachment that is no t available. Basil Guadalupe MD PROCEDURES documented in this encounter Visit Diagnoses Diagnosis Cardiac pacemaker in situ - Primary documented in this encounter Care Teams Extractor Tender Raw Stock Relationship Specialty Start Date End Date Graham Licona MD PCP - General Family Practice 04/13/17 01/15/18 [facility] [address] [place] [address] documented as of this encounter
--- OUTSIDE RECORDS SUMMARY | 2022-08-22 06:58 | XMS_ITS | Encounter Summary ---
:1940 Author Organization [place] Address [address] [facility] [place] [address] Care Team Providers Name Role Phone Graham Licona MD Primary Care Provider Reason for Visit Reason Onset Date Comments Pacemaker Check 04/25/2017 Remote alert for VHR Encounter Details Date Type Department Care Team Description 04/25/2017 Telephone [facility] Heart Fabiola Hurtado acemaker Check (Remote Clinic [place] Bui, RN, RN alert for VHR) [address] [facility] [address] [place] [address] [address] [facility] [phone] [address] [place] [address] Social History Tobacco Use Types Packs/Day Years Used Date Smoking Tobacco: Never Alcohol Use Standard Drinks/Week Comments No 0 (1 standard drink = 0.6 oz pure alcoho l) Sex Assigned at Date Recorded Not on file documented as of this encounter Miscellaneous Notes Telephone Encounter - Fabiola Hurtado, RN, RN - 04/25/2017 5:09 PM CDT [employer] [facility] PPM Alert Received alert for another [...] [address] [place] [address] (Wo rk) 09/28/2022 Lab Lab 09/28/2022 Office Visit Cardiology Timothy Smith MD [address] [place] [address] Trudi Grayson APRN SALES DEVELOPER [address] [place] [address] 11/16/2022 Ancillary Procedure Cardiology Timothy Smith MD [address] [place] [address] (Wo rk) documented as of this encounter Visit Diagnoses Not on filedocumented in this encounter Care Teams Chief Of Police Relationship Specialty Start Date End Date Graham Licona MD PCP - General Family Practice 04/13/17 01/15/18 [facility] [address] [place] [address] documented as of this encounter
--- OUTSIDE RECORDS SUMMARY | 2022-08-22 06:58 | XMS_ITS | Encounter Summary ---
:1940 Author Organization [place] Address [address] [facility] [place] [address] Care Team Providers Name Role Phone Graham Licona MD Primary Care Provider Reason for Visit Reason Onset Date Comments Medication Question 01/04/2018 Eliquis Encounter Details Date Type Department Care Team Description 01/04/[address] [facility] Heart Lacy [place] M edication Question Clinic [place] RN (Eliquis) [address] [facility] [address] [place] [...] week supply of Eliquis 5mg placed at electrician front of [facility] for pt pick up man. Chu EL Telephone Encounter - Lacy [place] RN - 01/04/2018 1:58 PM CDT Pt LM requesting samples of Eliquis, as he will run out before his medications come in the mail. Will message nurse in [facility] to set out a couple of boxes for pt to pick up man today if possible. Jing documented in this encounter Plan of Treatment Upcoming Encounters Date Type Specialty Care Team Description 08/31/2022 Appointment Respiratory Therapy Timothy Smith MD [address] [place] [id number] (Wo rk) 09/28/2022 Lab Lab 09/28/2022 Office Visit Cardiology Timothy Smith MD [address] [place] [address] Trudi Grayson APRN WELDER/INSTALLER [address] [place] [address] [address] 11/16/2022 Ancillary Procedure Cardiology Timothy Smith MD [address] [place] [phone] (Wo rk) documented as of this encounter Visit Diagnoses Not on filedocumented in this encounter Care Teams Sports Doctor Relationship Specialty Start Date End Date Graham Licona MD PCP - General Family Practice 04/13/17 01/15/[address] [facility] [address] [place] [address] documented as of this encounter
--- OUTSIDE RECORDS SUMMARY | 2022-08-22 06:58 | XMS_ITS | Encounter Summary ---
:1940 Author Organization [place] Address [facility] [place] [address] Care Team Providers Name Role Phone Clinic, [facility] Primary Care Provider [phone] Reason for Referral - Closed Specialty Diagnoses / Procedures Referred By Contact Refer red To Contact Diagnoses Atrial fibrillation (H) [facility] [address] [facility] [address] [place] [address] Referral ID Status Reason Start Date Expiration Date Visits Requ ested Visits Authorized [id number] Closed 04/25/2018 04/25/2019 1 1 Reason for Visit Reason Onset Date Comments Clinic Care Coordination - Follow-up 01/24/2018 Encounter Details Date Type Department Care Team Description 01/24/[address] [facility] Aravind Fierro [facility] [place] Vital RN Coordination - [address] [facility] Follow-up [facility] [address] [place] [address] Social History Tobacco Use Types Packs/Day [...] MD [address] [place] [phone] (Wo rk) 09/28/2022 Lab Lab 09/28/2022 Office Visit Cardiology Timothy Smith MD [address] [place] [address] Trudi Grayson APRN CNP [address] [place] [address] 11/16/2022 Ancillary Procedure Cardiology Timothy Smith MD [address] [place] [phone] (Wo rk) Scheduled Referrals Name Type Priority Associated Diagnoses Order S chedule Follow-Up with Referral Routine Atrial fibrillation Expect ed: Clinical Engineer (H) 04/25/20 (Approximate), Expires: 01/24/2020 documented as of this encounter Visit Diagnoses Diagnosis Atrial fibrillation (H) - Primary Atrial fibrillation documented in this encounter Care Teams Glue Reel Operator Relationship Specialty Start Date End Date [facility] PCP - General 01/16/18 07/01/18 [address] [place] [address] documented as of this encounter
--- OUTSIDE RECORDS SUMMARY | 2022-08-22 06:58 | XMS_ITS | Encounter Summary ---
:1940 Author Organization [place] Address [facility] [place] [address] Care Team Providers Name Role Phone Graham Licona MD Primary Care Provider Reason for Visit Reason Onset Date Comments Refill Request 08/10/2017 metoprolol Encounter Details Date Type Department Care Team Description 08/10/2017 Refill [facility] Heart Zarina Smith MD Refill Request Clinic [place] [address] (metoprolol) [address] [id number] [place] [address] [place] [phone] [phone] Social History Tobacco Use Types Packs/Day Years Used Date Smoking Tobacco: Never Alcohol Use Standard Drinks/Week Comments No 0 (1 standard drink = 0.6 oz pure alcoho l) Sex Assigned at Date Recorded Not on file documented as of this encounter Plan of Treatment Upcoming Encounters Date Type Specialty Care Team Description 08/31/2022 Appointment Respiratory Therapy Timothy Smith MD [address] [place] [phone] (Wo rk) 09/28/2022 Lab Lab 09/28/2022 Office Visit Cardiology Timothy Smith MD [address] [place] [phone] Trudi Grayson APRN MOISTURE METER OPERATOR [address] [place] [address] 11/16/2022 Ancillary Procedure Cardiology Timothy Smith MD [address] [place] [address] (Wo rk) documented as of this encounter Visit Diagnoses Diagnosis PAF (paroxysmal atrial fibrillation) (H) Atrial fibrillation documented in this encounter Care Teams Machine Taper Relationship Specialty Start Date End Date Graham Licona MD PCP - General Family Practice 04/13/17 01/15/18 [facility] [address] [place] [address] documented as of this encounter
--- OUTSIDE RECORDS SUMMARY | 2022-08-22 06:58 | XMS_ITS | Encounter Summary ---
:1940 Author Organization [place] Address [facility] [place] [address] Care Team Providers Name Role Phone Graham Licona MD Primary Care Provider Reason for Visit Reason Comments Pacemaker Check PPM Latitude NXT Encounter Details Date Type Department Care Team Description 07/16/2017 Allied Health/Nurse [facility] Pac emaker Check (PPM Visit Heart [facility] [place] Latitude NXT) [address] [place] [address] [address] [place] [address] Social History Tobacco Use Types Packs/Day Years Used Date Smoking Tobacco: Never Alcohol Use Standard Drinks/Week Comments No 0 (1 standard drink = 0.6 oz pure alcoho l) Sex Assigned at Date Recorded Not on file documented as of this encounter Progress Notes Sary Riojas - 07/16/2017 9:00 AM CDT Dino Adan VALLES L121 (S) Remote PPM Device Check HEAD WOOD GRINDER: 8% Mode: VVIR Presenting Rhythm: Afib with [...] [address] [place] [address] (Wo rk) 09/28/2022 Lab Lab 09/28/2022 Office Visit Cardiology Timothy Smith MD [address] [place] [address] Trudi Grayson APRN CNP [address] [place] [address] 11/16/2022 Ancillary Procedure Cardiology Timothy Smith MD [address] [place] [phone] (Wo rk) documented as of this encounter Procedures Procedure Name Priority Date/Time Associated Diagnosis Comme [facility] PM DEVICE Routine 07/16/2017 1:42 PM Cardiac pacemaker in INTERROGATE REMOTE, UP CDT situ TO 90 DAYS, LEAD/LEADLESS HC INTERR DEVICE EVAL Routine 07/16/2017 Cardiac pacemaker i n REMOTE, PM/LDLS PM/ICD, situ UP TO 90 DAYS documented in this encounter Results INTERROGATION DEVICE EVAL REMOTE, PACER/ICD (82119) (07/16/2017) Narrative This result has an attachment that is no t available. Basil Guadalupe MD PROCEDURES documented in this encounter Visit Diagnoses Diagnosis Cardiac pacemaker in situ - Primary documented in this encounter Care Teams Technical Support Assistant Relationship Specialty Start Date End Date Graham Licona MD PCP - General Family Practice 04/13/17 01/15/18 [facility] [address] [place] [address] documented as of this encounter
--- OUTSIDE RECORDS SUMMARY | 2022-08-22 06:58 | XMS_ITS | Encounter Summary ---
:1940 Author Organization [place] Address [address] [facility] [place] [address] Care Team Providers Name Role Phone Graham Licona MD Primary Care Provider Reason for Visit Reason Comments Samples eliquis 5mg Encounter Details Date Type Department Care Team Description 05/14/2017 Care Coordination [facility] Catherine Aranda Sa (eliquis Heart [facility] [place] Crenshaw LPN 5mg) [address] [facility] [address] [place] [address] Social History [...] 08/31/2022 Appointment Respiratory Therapy Timothy Smith MD [address] [facility] [address] [place] [address] (Wo rk) 09/28/2022 Lab Lab 09/28/2022 Office Visit Cardiology Timothy Smith MD [address] [place] [address] Trudi Grayson APRN HOUSEKEEPER SUPERVISOR [address] [place] [phone] 11/16/2022 Ancillary Procedure Cardiology Timothy Smith MD [address] [place] [address] (Wo rk) documented as of this encounter Visit Diagnoses Not on filedocumented in this encounter Care Teams Want Ad Clerk Relationship Specialty Start Date End Date Graham Licona MD PCP - General Family Practice 04/13/17 01/15/18 [facility] [address] [place] [address] documented as of this encounter
--- OUTSIDE RECORDS SUMMARY | 2022-08-22 06:58 | XMS_ITS | Encounter Summary ---
:1940 Author Organization [place] Address [facility] [place] [address] Care Team Providers Name Role Phone Graham Licona MD Primary Care Provider Reason for Visit Reason Onset Date Comments Refill Request 05/23/2017 pt was granted tier acception for eliquis Encounter Details Date Type Department Care Team Description 05/23/2017 Refill [facility] Heart Zarina Smith MD Refill Request (pt was [facility] [place] [address] granted tier acception [address] [facility] [address] for eliquis) [address] [place] [address] [place] [phone] [phone] Social History Tobacco Use Types Packs/Day Years [...] [address] [place] [phone] (Wo rk) 09/28/2022 Lab Lab 09/28/2022 Office Visit Cardiology Timothy Smith MD [address] [place] [address] Trudi Grayson APRN BUNCH TRIMMER MOLD [address] [place] [address] [address] 11/16/2022 Ancillary Procedure Cardiology Timothy Smith MD [address] [place] [phone] (Wo rk) documented as of this encounter Visit Diagnoses Diagnosis Paroxysmal atrial fibrillation (H) Atrial fibrillation documented in this encounter Care Teams Pharmacy Technician Infusion Relationship Specialty Start Date End Date Graham Licona MD PCP - General Family Practice 04/13/17 01/15/18 [facility] [address] [place] [address] documented as of this encounter
--- OUTSIDE RECORDS SUMMARY | 2022-08-22 06:58 | XMS_ITS | Encounter Summary ---
:1940 Author Organization [place] Address [facility] [place] [address] Care Team Providers Name Role Phone Clinic, [facility] Primary Care Provider [phone] Encounter Details Date Type Department Care Team Description 01/23/2018 [facility] Only [facility] Heart SOB (shortness of breath) [facility] [address] [facility] [address] [place] [address] Social History Tobacco Use Types Packs/Day Years [...] Respiratory Therapy Timothy Smith MD [address] [place] [address] (Wo rk) 09/28/2022 Lab Lab 09/28/2022 Office Visit Cardiology Timothy Smith MD [address] [place] [phone] Trudi Grayson APRN MANAGER IMMUNOLOGY [address] [place] [address] 11/16/2022 Ancillary Procedure Cardiology Timothy Smith MD [address] [place] [address] (Wo rk) documented as of this encounter [...] [facility] mmol/L 10:46 AM CDT [facility] Potassium 4.4 3.5 - 5.1 01/23/2018 [facility] mmol/L 10:46 AM T [facility] Chloride 101 98 - 107 01/23/2018 [facility] mmol/L 10:46 AM T [facility] Carbon Dioxide 29 23 - 29 01/23/2018 [facility] mmol/L 10:46 AM T [facility] Anion Gap 15.4 6 - 17 01/23/2018 [facility] mmol/L 10:46 AM T [facility] Glucose 152 (H) 70 - 105 01/23/2018 [facility] mg/dL 10:46 AM T [facility] Urea Nitrogen 27 7 - 30 01/23/2018 [facility] mg/dL 10:46 AM T [facility] Creatinine 1.27 0.70 - 01/23/2018 [facility] 1.30 mg/dL 10:46 AM T [facility] GFR Estimate 55 (L) >60 01/23/2018 [facility] mL/min/1.7 10:46 AM T [facility] A GFR Estimate If 66 >60 01/23/2018 [facility] Black mL/min/1.7 10:46 AM T ANIYAHPILI m2 A Calcium 10.1 8.5 - 10.5 01/23/2018 [facility] mg/dL 10:46 AM T [facility] Specimen Anatomical Collection Method Collection Time Receive d Time (Source) Location / / Volume Laterality Blood specimen 01/23/2018 9:50 AM 018 9:51 (specimen) CDT AM CDT Timothy Smith MD LAB - BLOOD ORDERABLES Performing Organization Address City/State/ZIP Code Phon e Number [facility] [place] [address] [place] [place] [address] [address] documented in this encounter Visit Diagnoses Diagnosis SOB (shortness of breath) Shortness of breath documented in this encounter Care Teams Desizing Pad Operator Relationship Specialty Start Date End Date [facility] [place] PCP - General 01/16/18 07/01/18 [address] [place] [address] documented as of this encounter
--- OUTSIDE RECORDS SUMMARY | 2022-08-22 06:58 | XMS_ITS | Encounter Summary ---
:1940 Author Organization [place] Address [facility] [place] [address] Care Team Providers Name Role Phone Clinic, [facility] Primary Care Provider [phone] Reason for Referral CV Testing - Closed Specialty Diagnoses / Procedures Referred By Contact Refer red To Contact Cardiology Diagnoses SOB (shortness of breath) Timothy Smith MD Zzdomitila Cardiac Test [facility] Procedures Holter Monitor 24 hour - Adult [address] [address] [place] [address] [address] [place] [address] Phone: Fax: Referral ID Status Reason Start Date Expiration Date Visits Requ ested Visits Authorized [id number] Closed 01/17/2018 01/23/2019 1 1 Reason for Visit CV Testing - Closed Specialty Diagnoses / Procedures Referred By Contact Refer red To Contact Cardiology Diagnoses SOB (shortness of breath) Timothy Smith MD Zzrh Cardiac Test Rs Procedures Holter Monitor 24 hour - Adult [address] [address] [place] [address] [address] [place] [address] Phone: Fax: Referral ID Status Reason Start Date Expiration Date Visits Requ ested Visits Authorized [id number] Closed 01/17/2018 01/23/2019 1 1 Encounter Details Date Type Department Care Team Description 01/21/2018 Hospital Encounter [place] [facility] Timothy Smith MD SOB ([facility] [address] breath) [address] [facility] [address] [place] [address] [place] [phone] [address] (Work) [phone] Social History Tobacco Use Types Packs/Day Years [...] [address] [place] [address] (Wo rk) 09/28/2022 Lab Lab 09/28/2022 Office Visit Cardiology Timothy Smith MD [address] [place] [address] Trudi Grayson APRN WOOD ROOM HAND [address] [address] 11/16/2022 Ancillary Procedure Cardiology Timothy Smith MD [address] [place] [address] (Wo rk) documented as of this encounter Procedures Procedure Name Priority Date/Time Associated Diagnosis Comme nts HOLTER MONITOR 24 Routine 01/21/2018 10:09 AM SOB (shortness o f Results for this HOUR - ADULT CDT breath) procedure are i n the results section. documented in this encounter Results Holter Monitor 24 hour - Adult (01/21/2018 10:09 AM CDT) [facility] gist Method Time Signature Interpretation Click View RADIOLOGY Supervisor Assembly And Packing Image link RESULTS to view waveform and [...] breath documented in this encounter Care Teams Lead Burner Relationship Specialty Start Date End Date [facility], [facility] PCP - General 01/16/18 07/01/18 [address] [place] [address] documented as of this encounter
--- OUTSIDE RECORDS SUMMARY | 2022-08-22 06:58 | XMS_ITS | Encounter Summary ---
:1940 Author Organization [place] Address [address] [facility] [place] [address] Care Team Providers Name Role Phone Graham Licona MD Primary Care Provider Reason for Visit Reason Onset Date Comments Patient Request 05/08/2017 echo Encounter Details Date Type Department Care Team Description 05/08/2017 Telephone [facility] Heart Lacy [place] P atient Request (echo) Clinic [place] [address] [facility] [address] [place] [address] Social History Tobacco Use Types [...] call, Discussed that having the echo at [place] is fine, but would request that echo [...] and ordered to have an echo in [place]. Pt wondering if we would want it done up here. Attempted to call pt back but phone on rang and did not go to voice message, willattempt to call later. JNelsonRN documented in this encounter Plan of Treatment Upcoming Encounters Date Type Specialty Care Team Description 08/31/2022 Appointment Respiratory Therapy Timothy Smith MD [address] [place] [address] (Wo rk) 09/28/2022 Lab Lab 09/28/2022 Office Visit Cardiology Timothy Smith MD [address] [place] [address] Trudi Grayson APRN PROFESSOR OF SOCIAL WORK [address] [address] 11/16/2022 Ancillary Procedure Cardiology Timothy Smith MD [address] [place] [address] (Wo rk) documented as of this encounter Visit Diagnoses Not on filedocumented in this encounter Care Teams Senior Software Analyst Relationship Specialty Start Date End Date Graham Licona MD PCP - General Family Practice 04/13/17 01/15/18 [facility] [address] [place] [address] documented as of this encounter
--- OUTSIDE RECORDS SUMMARY | 2022-08-22 06:58 | XMS_ITS | Encounter Summary ---
:1940 Author Organization [place] Address [address] [place] [address] Care Team Providers Name Role Phone Graham Licona MD Primary Care Provider Reason for Visit Reason Comments Pacemaker Check alert for VHR Encounter Details Date Type Department Care Team Description 05/17/2017 Documentation Only [facility] Sergo Vega cemaker Check Heart [facility] [place] Lynne RN (alert for VHR) [address] [facility] [address] [place] [address] Social History Tobacco Use Types Packs/Day Years Used Date Smoking Tobacco: Never Alcohol Use Standard Drinks/Week Comments No 0 (1 standard drink = 0.6 oz pure alcoho l) Sex Assigned at Date Recorded Not on file documented as of this encounter Progress Notes Guera Vega RN - 05/17/2017 1:40 PM CDT [place] PPM. Alert for VHR. Tracings show AF/RVR. Will continue to monitor. Pt on OAC. SueLangenbrunnerRN documented in this encounter Plan of Treatment Upcoming Encounters Date Type Specialty Care Team Description 08/31/2022 Appointment Respiratory Therapy Timothy Smith MD [address] [place] [phone] (Wo rk) 09/28/2022 Lab Lab 09/28/2022 Office Visit Cardiology Timothy Smith MD [address] [place] [address] Trudi Grayson APRN DOUBLE BACKER [address] [id number] 11/16/2022 Ancillary Procedure Cardiology Timothy Smith MD [address] [place] [phone] (Wo rk) documented as of this encounter Visit Diagnoses Not on filedocumented in this encounter Care Teams Electronic Operator Relationship Specialty Start Date End Date Graham Licona MD PCP - General Family Practice 04/13/17 01/15/18 [facility] [address] [place] [address] documented as of this encounter
--- OUTSIDE RECORDS SUMMARY | 2022-08-22 06:58 | XMS_ITS | Encounter Summary ---
:1940 Author Organization [place] Address [address] [facility] [place] [address] Care Team Providers Name Role Phone Graham Licona MD Primary Care Provider Encounter Details Date Type Department Care Team Description 11/14/2017 Documentation Only [facility] luis antonio, [facility] [place] [address] [facility] [address] [place] [address] Social History Tobacco Use Types Packs/Day [...] in for annual check on 01/16. SPowellRN OPERATOR documented in this encounter Plan of Treatment Upcoming Encounters Date Type Specialty Care Team Description 08/31/2022 Appointment Respiratory Therapy Timothy Smith MD [address] [facility] [address] [place] [address] (Wo rk) 09/28/2022 Lab Lab 09/28/2022 Office Visit Cardiology Timothy Smith MD [address] [place] [address] Trudi Grayson APRN MAKE UP EDITOR [address] [address] 11/16/2022 Ancillary Procedure Cardiology Timothy Smith MD [address] [place] [phone] (Wo rk) documented as of this encounter Visit Diagnoses Not on filedocumented in this encounter Care Teams Turn Down Attendant Relationship Specialty Start Date End Date Graham Licona MD PCP - General Family Practice 04/13/17 01/15/18 [facility] [address] [place] [address] documented as of this encounter
--- OUTSIDE RECORDS SUMMARY | 2022-08-22 06:58 | XMS_ITS | Encounter Summary ---
:1940 Author Organization [place] Address [facility]ly [facility] [place] [address] Care Team Providers Name Role Phone Graham Licona MD Primary Care Provider Reason for Visit Reason Onset Date Comments Refill Request 10/08/2017 dose of metoprolol i ncreased to 100mg daily, succinate Encounter Details Date Type Department Care Team Description 10/08/[address] [facility] Heart Zarina Smith MD Refill Request (dose of Clinic Nursery [address] metoprolol increased to [address] 100mg daily, succinate) [address] [place] [address] [place] [phone] Social History Tobacco Use Types Packs/Day Years Used Date Smoking Tobacco: Never Alcohol Use Standard Drinks/Week Comments No 0 (1 standard drink = 0.6 oz pure alcoho l) Sex Assigned at Date Recorded Not on file documented as of this encounter Plan of Treatment Upcoming Encounters Date Type Specialty Care Team Description 08/31/2022 Appointment Respiratory Therapy Timothy Smith MD [address] [place] [phone] (Wo rk) 09/28/2022 Lab Lab 09/28/2022 Office Visit Cardiology Timothy Smith MD [address] [place] [phone] Trudi Grayson APRN LANGUAGES AND LITERATURE INSTRUCTOR [address] [address] 11/16/2022 Ancillary Procedure Cardiology Timothy Smith MD [address] [place] [address] (Wo rk) documented as of this encounter Visit Diagnoses Diagnosis Palpitations - Primary documented in this encounter Care Teams Nuclear Fuels Research Engineer Relationship Specialty Start Date End Date Graham Licona MD PCP - General Family Practice 04/13/17 01/15/18 [facility] [address] [place] [address] documented as of this encounter
--- OUTSIDE RECORDS SUMMARY | 2022-08-22 06:58 | XMS_ITS | Encounter Summary ---
:1940 Author Organization [place] Address [address] [place] [address] Care Team Providers Name Role Phone Graham Licona MD Primary Care Provider Reason for Visit Reason Comments Pacemaker Check Alert Encounter Details Date Type Department Care Team Description 06/12/2017 Documentation Only [facility] Lula Pa Pace maker Check Heart Clinic Patt RN (Alert) [address] [facility] [address] [place] [phone] Social History Tobacco Use Types Packs/Day Years Used Date Smoking Tobacco: Never Alcohol Use Standard Drinks/Week Comments No 0 (1 standard drink = 0.6 oz pure alcoho l) Sex Assigned at Date Recorded Not on file documented as of this encounter Progress Notes Lula Pa RN - 06/12/2017 2:50 PM CDT [employer] Essentio-Alert for VHR Latitude alert for VT episode occurrence received- EGMs showed RVR response to AF, rates 160-170 bpm, longest lasting 1 minute. Patient is in chronic AF and is on Eliquis. Will continue to monitor. Heide Pa RN documented in this encounter Plan of Treatment Upcoming Encounters Date Type Specialty Care Team Description 08/31/2022 Appointment Respiratory Therapy Timothy Smith MD [address] [place] [phone] (Wo rk) 09/28/2022 Lab Lab 09/28/2022 Office Visit Cardiology Timothy Smith MD [address] [place] [phone] Trudi Grayson APRN SUPERVISING PRODUCER [address] [id number] 11/16/2022 Ancillary Procedure Cardiology Timothy Smith MD [address] [place] [phone] (Wo rk) documented as of this encounter Visit Diagnoses Not on filedocumented in this encounter Care Teams Manager Salt Relationship Specialty Start Date End Date Graham Licona MD PCP - General Family Practice 04/13/17 01/15/18 [facility] [address] [place] [address] documented as of this encounter
--- OUTSIDE RECORDS SUMMARY | 2022-08-22 06:58 | XMS_ITS | Encounter Summary ---
:1940 Author Organization [place] Address [facility] [place] [address] Care Team Providers Name Role Phone Clinic, [facility] Primary Care Provider [phone] Reason for Visit Reason Comments Pacemaker Check PPM Latitude NXT Encounter Details Date Type Department Care Team Description 04/24/2018 Allied Health/Nurse [facility] Pac emaker Check (PPM Visit Heart Clinic Patt Latitude NXT) [address] [place] [address] [address] [place] [address] Social History Tobacco Use Types Packs/Day Years Used Date Smoking Tobacco: Never Smokeless Tobacco: Never Alcohol Use Standard Drinks/Week Comments No 0 (1 standard drink = 0.6 oz pure alcoho l) Sex Assigned at Date Recorded Not on file documented as of this encounter Progress Notes Sary Riojas - 04/24/2018 3:30 PM CDT [employer]entio EL L121 (S) Remote PPM Device Check SALES CONSULTANT RESIDENTIAL MANAGER: 26% Mode: VVIR Presenting Rhythm: SALES CONSULTANT RESIDENTIAL MANAGER & VS Heart Rate: vent rates 60 [...] MD [address] [place] [address] (Wo rk) 09/28/2022 Lab Lab 09/28/2022 Office Visit Cardiology Timothy Smith MD [address] [place] [address] Trudi Grayson APRN FERTILIZER APPLICATOR [address] [address] 11/16/2022 Ancillary Procedure Cardiology Timothy Smith MD [address] [place] [phone] (Wo rk) documented as of this encounter Procedures Procedure Name Priority Date/Time Associated Diagnosis Comme [facility] PM DEVICE Routine 04/24/2018 9:24 AM Cardiac pacemaker in INTERROGATE REMOTE, UP CDT situ TO 90 DAYS, LEAD/LEADLESS HC INTERR DEVICE EVAL Routine 04/24/2018 Cardiac pacemaker i n REMOTE, PM/LDLS PM/ICD, situ UP TO 90 DAYS documented in this encounter Results INTERROGATION DEVICE EVAL REMOTE, PACER/ICD (85316) (04/24/2018) Narrative This result has an attachment that is no t available. Basil Guadalupe MD PROCEDURES documented in this encounter Visit Diagnoses Diagnosis Cardiac pacemaker in situ - Primary documented in this encounter Care Teams Industrial Relations Specialist Relationship Specialty Start Date End Date Clinic, Vinny Jaimes PCP - General 01/16/18 07/01/18 [address] [place] [phone] documented as of this encounter
--- OUTSIDE RECORDS SUMMARY | 2022-08-22 06:58 | XMS_ITS | Encounter Summary ---
:1940 Author Organization [place] Address [address] [facility] [place] [address] Care Team Providers Name Role Phone Graham Licona MD Primary Care Provider Reason for Visit Reason Onset Date Comments Medication Request 05/04/2017 SE with warfarin- wa nts to switch back to Eliquis Encounter Details Date Type Department Care Team Description 05/04/2017 Telephone [facility] Heart Zarina Smith MD Medication Request ([facility] [place] [address] with warfarin- wants to [address] switch back to Eliquis) [facility] [address] [place] [address] [place] [phone] Social History Tobacco Use [...] instruct pt to stop AC, I will tar heat exchanger cleaner the prescription at this time. Patient will call us back after F/U on Sunday with anyfurther instructions/findings. SIENNA Cowart documented in this encounter Plan of Treatment Upcoming Encounters Date Type Specialty Care Team Description 08/31/2022 Appointment Respiratory Therapy Timothy Smith MD [address] [place] [address] (Wo rk) 09/28/2022 Lab Lab 09/28/2022 Office Visit Cardiology Timothy Smith MD [address] [place] [address] Trudi Grayson APRN CNP [address] [address] 11/16/2022 Ancillary Procedure Cardiology Timothy Smith MD [address] [place] [address] (Wo rk) documented as of this encounter Visit Diagnoses Diagnosis Paroxysmal atrial fibrillation (H) - Ria jing Atrial fibrillation documented in this encounter Care Teams Furnace Operator Relationship Specialty Start Date End Date Graham Licona MD PCP - General Family Practice 04/13/17 01/15/18 [facility] [address] [place] [address] documented as of this encounter
--- OUTSIDE RECORDS SUMMARY | 2022-08-22 06:58 | XMS_ITS | Encounter Summary ---
:1940 Author Organization [place] Address [address] [facility] [place] [address] Care Team Providers Name Role Phone Clinic, [facility] Primary Care Provider [phone] Reason for Visit (Routine) - Closed Specialty Diagnoses / Procedures Referred By Contact Refer red To Contact Cardiology Diagnoses Per Sarah SOB (shortness of breath) Katelynn Cv Echocard Procedures [facility]TE [address] [address] [place] [address] Phone: Referral ID Status Reason Start Date Expiration Date Visits Requ ested Visits Authorized [id number] Closed 01/17/2018 01/17/2019 1 1 Encounter Details Date Type Department Care Team Description 01/17/2018 Hospital Encounter [facility] DallinAnkur Ramirez MD SOB (shortness of CV Echocardiography [address] breath) [address] [id number] [place] [address] [facility] [phone] [place] [address] (Work) [phone] Social History Tobacco Use Types Packs/Day Years [...] 08/31/2022 Appointment Respiratory Therapy Ankur Smith MD [address] [place] [address] (Wo rk) 09/28/2022 Lab Lab 09/28/2022 Office Visit Cardiology Ankur Smith MD [address] [place] [phone] Trudi Grayson APRN INSURANCE INVESTIGATOR [address] [phone] 11/16/2022 Ancillary Procedure Cardiology Ankur Smith MD [address] [place] [phone] (Wo rk) documented as of this encounter [...] AM CDT Narrative 01/17/2018 2:54 PM CDT [id number]^SARAH^ANKUR^ [facility] Heart Echocardiography Laboratory [address] [facility] [address] [place] [address] Name: RADHA VILLA : 1940 Study Date: 01/17/2018 09:58 AM Age: 77 yrs Gender: Male Patient Location: [facility] Reason For Study: , SOB (shortness of br eath) History: A-FIB, CABG, PACEMAKER Ordering Physician: ANKUR SMITH Referring Physician: VINNY CABAN INIC Performed By: Nabeel Fox RDCS BSA: [...] Medial E/e': 24.5 __ Report approved by: Tpi Parikh MDon 0 01/17/2018 02:54 PM Procedure Note Tip Parikh MD - 01/17/2018Formatti ng of this note might be different from the original. [id number] [facility] [id number]^SARAH^ANKUR^ [facility] Heart Echocardiography Laboratory [address] [place] [address] [address] [place] [address] Name: RADHA VILLA : 1940 Study Date: 01/17/2018 09:58 AM Age: 77 yrs Gender: Male Patient Location: [facility] Reason For Study: , SOB (shortness of br eath) History: A-FIB, CABG, PACEMAKER Ordering Physician: ANKUR SMITH Referring Physician: VINNY ARRIETA INIC Performed By: Nabeel Fox RDCS BSA: [...] Medial E/e': 24.5 __ Report approved by: iTp Parikh MDon 0 01/17/2018 02:54 PM Ankur [...] dose documented in this encounter Care Teams Resource Technician Relationship Specialty Start Date End Date Clinic, Vinny Arrieta PCP - General 01/16/18 07/01/18 [address] [place] [phone] documented as of this encounter
--- OUTSIDE RECORDS SUMMARY | 2022-08-22 06:58 | XMS_ITS | Encounter Summary ---
:1940 Author Organization [place] Address [facility] [place] [address] Care Team Providers Name Role Phone Clinic, [facility] Primary Care Provider [phone] Reason for Visit Reason Comments Pacemaker Check Annual Threshold Check Encounter Details Date Type Department Care Team Description 01/16/2018 Allied Health/Nurse [facility] Pac emaker Check (Annual Visit Heart Clinic [place] Threshold Check) [address] [place] [address] [address] [place] [phone] Social History Tobacco Use Types Packs/Day Years Used Date Smoking Tobacco: Never Smokeless Tobacco: Never Alcohol Use Standard Drinks/Week Comments No 0 (1 standard drink = 0.6 oz pure alcoho l) Sex Assigned at Date Recorded Not on file documented as of this encounter Progress Notes Lula Pa RN - 01/16/2018 11:00 AM CDT [employer] EL L121 Pacemaker Device Check AP: o % BROOCH MAKER NOVELTY: 14 % Mode: VVIR 60-130 bpm Underlying [...] [address] [place] [address] (Wo rk) 09/28/2022 Lab Lab 09/28/2022 Office Visit Cardiology Timothy Smith MD [address] [place] [address] Trudi Grayson APRN CNP [address] [place] [address] 11/16/2022 Ancillary Procedure Cardiology Timothy Smith MD [address] [place] [address] (Wo rk) documented as of this encounter Procedures Procedure Name Priority Date/Time Associated Diagnosis Comme nts HC PM DEVICE PROGRAMMING EVAL, Routine 01/16/2018 Cardiac pa cemaker in situ DUAL LEAD PACER documented in this encounter Results PM DEVICE PROGRAMMING EVAL, DUAL LEAD PACER (95207) (01/16/2018) Narrative This result has an attachment that is no t available. Timothy Smith MD PROCEDURES documented in this encounter Visit Diagnoses Diagnosis Cardiac pacemaker in situ - Primary documented in this encounter Care Teams Procedures Tech Relationship Specialty Start Date End Date Clinic, Vinny Jaimes PCP - General 01/16/18 07/01/18 [address] [place] [phone] documented as of this encounter
--- OUTSIDE RECORDS SUMMARY | 2022-08-22 06:58 | XMS_ITS | Encounter Summary ---
:1940 Author Organization [place] Address [address] [facility] [place] [address] Care Team Providers Name Role Phone Graham Licona MD Primary Care Provider Reason for Visit Reason Onset Date Comments Refill Request 05/07/2017 Encounter Details Date Type Department Care Team Description 05/07/[address] [facility] Heart Clinic Selena Reynoso RN Refill Request [place] [facility] [address] [facility] [address] [place] [phone] Social History Tobacco Use Types Packs/Day Years [...] [address] [place] [address] (Wo rk) 09/28/2022 Lab Lab 09/28/2022 Office Visit Cardiology Timothy Smith MD [address] [place] [phone] Trudi Grayson APRN FIRE ALARM DISPATCHER [address] [address] 11/16/2022 Ancillary Procedure Cardiology Timothy Smith MD [address] [place] [address] (Wo rk) documented as of this encounter Visit Diagnoses Diagnosis PAF (paroxysmal atrial fibrillation) (H) - Primary Atrial fibrillation documented in this encounter Care Teams Judicial Administrative Assistant Relationship Specialty Start Date End Date Graham Licona MD PCP - General Family Practice 04/13/17 01/15/18 [facility] [address] [place] [address] documented as of this encounter
--- OUTSIDE RECORDS SUMMARY | 2022-08-22 06:58 | XMS_ITS | Encounter Summary ---
:1940 Author Organization [place] Address [address] [place] [place] [address] Care Team Providers Name Role Phone Graham Licona MD Primary Care Provider Reason for Visit Reason Comments Pacemaker Check Clinic Care Coordination - Follow-up Encounter Details Date Type Department Care Team Description 08/13/2017 Documentation Only [facility] Sergo Vega Check; Heart Clinic Patt Lynne RN Clinic Care [address] [place] [address] [address] [place] [phone] Social History Tobacco [...] stopping the AMINTA/ARB. Will review with DR SMTIH. Pt states he does note the palpitations;he [...] questions he can call the clinic. Abe HAULER documented in this encounter Plan of Treatment Upcoming Encounters Date Type Specialty Care Team Description 08/31/2022 Appointment Respiratory Therapy Timothy Smith MD [address] [place] [address] (Wo rk) 09/28/2022 Lab Lab 09/28/2022 Office Visit Cardiology Timothy Smith MD [address] [place] [address] Trudi Grayson APRN FIXED WING PILOT [address] [address] 11/16/2022 Ancillary Procedure Cardiology Timothy Smith MD [address] [place] [address] (Wo rk) documented as of this encounter Visit Diagnoses Not on filedocumented in this encounter Care Teams Progress Man Relationship Specialty Start Date End Date Graham Licona MD PCP - General Family Practice 04/13/17 01/15/18 [facility] [address] [place] [address] documented as of this encounter
--- OUTSIDE RECORDS SUMMARY | 2022-08-22 06:58 | XMS_ITS | Encounter Summary ---
:1940 Author Organization [place] Address [facility] [place] [address] Care Team Providers Name Role Phone Graham Licona MD Primary Care Provider Reason for Visit Reason Onset Date Comments Refill Request 08/13/2017 Encounter Details Date Type Department Care Team Description 08/13/2017 Refill [facility] Heart Zarina Smith MD Refill Request [facility] [place] [address] [place] [address] [address] [address] [place] [address] [phone] Social History Tobacco Use Types Packs/Day Years [...] [address] [place] [address] (Wo rk) 09/28/2022 Lab Lab 09/28/2022 Office Visit Cardiology Timothy Smith MD [address] [place] [address] Trudi Grayson APRN ASSEMBLER RUBBER FOOTWEAR [address] [place] [address] 11/16/2022 Ancillary Procedure Cardiology Timothy Smith MD [address] [place] [address] (Wo rk) documented as of this encounter Visit Diagnoses Not on filedocumented in this encounter Care Teams Congressional Aide Relationship Specialty Start Date End Date Graham Licona MD PCP - General Family Practice 04/13/17 01/15/18 [facility] [address] [place] [address] documented as of this encounter
--- OUTSIDE RECORDS SUMMARY | 2022-08-22 06:58 | XMS_ITS | Encounter Summary ---
:1940 Author Organization [place] Address [facility] [place] [address] Care Team Providers Name Role Phone Clinic, [facility] Primary Care Provider [phone] Reason for Referral - Closed Specialty Diagnoses / Procedures Referred By Contact Refer red To Contact Diagnoses Persistent atrial fibrillation (H) Ankur Smith MD [address] [place] [address] Referral ID Status Reason Start Date Expiration Date Visits Requ ested Visits Authorized [id number] Closed 07/04/2018 07/04/2019 1 1 iagnostic Imaging XR - Closed Specialty Diagnoses / Procedures Referred By Contact Refer red To Contact Radiology. Diagnoses Persistent atrial fibrillation (H) Ankur Smith MD Rh Xray Procedures XR Chest [address] [place] [address] [place] [address] Phone: Fax: Referral ID Status Reason Start Date Expiration Date Visits Requ ested Visits Authorized [id number] Closed 05/02/2018 05/07/2019 1 1 V Testing - Closed Specialty Diagnoses / Procedures Referred By Contact Refer red To Contact Diagnoses Persistent atrial fibrillation (H) Ankur Smith MD Procedures Cardioversion [address] [place] [address] Referral ID Status Reason Start Date Expiration Date Visits Requ ested Visits Authorized [id number] Closed 05/07/2018 05/07/2019 1 1 Reason for Visit Reason Comments Results echo for review - Closed Specialty Diagnoses / Procedures Referred By Contact Refer red To Contact Diagnoses Paroxysmal atrial fibrillation (H) Ischemic cardiomyopathy Mago Sotomayor, FLACO PRICE LISTER [address] [place] [phone] Referral ID Status Reason Start Date Expiration Date Visits Requ ested Visits Authorized [id number] Closed 04/23/2018 04/23/2019 1 1 Encounter Details Date Type Department Care Team Description 04/30/2018 Office Visit [facility] Mago Sotomayor, FLACO PRICE LISTER [address] [place] [phone] Persistent atrial fibrillation (H) (Prim arnie Dx); Heart Clinic Ankur Beauchamp MD [address] [place] [phone] Paroxysmal atrial fibrillation (H); [address] [facility] Ischemic cardiomyopathy South [address] [place] [phone] Social History Tobacco Use Types Packs/Day Years [...] will have baseline amiodarone testing in [place]. cc: [address] [address] ANKUR SMITH MD MT: MANDIE Name: RADHA VILLA Account: [id number] : 1940 Service Date: 04/30/2018 Document: [id number] Ankur Smith MD - 04/30/2018 2:15 PM CDT HPI and Plan: See dictation Orders Placed This Encounter Procedures ??? XR Chest 1 View ??? Basic metabolic panel ??? Hepatic panel ??? TSH ??? Follow-Up with Transportation Engineering Technician ??? EKG 12-lead complete w/read (Future)- to [...] Muscular Skeletal: Neurological: Psych: CC Mago Keating, SUPERVISOR MONEY ROOM PRICE LISTER [address] [facility] [address] [place] [address] Ankur Smith MD - 04/30/2018 2:15 PM CDT HPI and Plan: See dictation Orders Placed This Encounter Procedures ??? XR Chest 1 View ??? Basic metabolic panel ??? Hepatic panel ??? TSH ??? Follow-Up with Transportation Engineering Technician ??? EKG 12-lead complete w/read (Future)- to [...] Muscular Skeletal: Neurological: Psych: CC Mago Keating, SUPERVISOR MONEY ROOM PRICE LISTER [address] [place] [address] documented in this encounter Plan of Treatment Upcoming Encounters Date Type Specialty Care Team Description 08/31/2022 Appointment Respiratory Therapy Ankur Smith MD [address] [place], [place] [phone] (Wo rk) 09/28/2022 Lab Lab 09/28/2022 Office Visit Cardiology Ankur Smith MD [address] [place], [place] [phone] Trudi Grayson, FLACO PRICE LISTER [address] [place] [address] 11/16/2022 Ancillary Procedure Cardiology Ankur Smith MD [address] [place] [address] (Wo rk) Scheduled Orders Name Type Priority Associated Diagnoses Order S chedule Cardioversion Echocardiography Routine Persistent atrial Expec star: 05/07/2018 fibrillation (H) (Approximat e), Expires: 2018 Scheduled Referrals Name Type Priority Associated Diagnoses Order S chedule Follow-Up with Referral Routine Persistent atrial Expected : Transportation Engineering Technician fibrillation (H) 12/2017 (Approximate), Expires: 04/30/2019 documented as of this encounter Results EKG 12-lead complete w/read (Future)- to be scheduled (07/02/2018 9:53 AM CDT) Narrative This result has an attachment that is no t available. Ankur Smith MD ECG ORDERABLES TSH (05/03/2018 9:58 AM CDT) P athologist Signature TSH 3.79 0.40 - 4.00 05/03/2018 [facility] mU/L 10:39 AM [facility] Specimen Anatomical Collection Method Collection Time Receive d Time (Source) Location / / Volume Laterality Blood specimen 05/03/2018 9:58 AM 018 9:59 (specimen) CDT AM CDT Ankur Smith MD LAB - BLOOD ORDERABLES Performing Organization Address [facility] Phon e Number [place] [address] [place], [place] [address] [phone] [facility] [address] [phone] (ABNORMAL) Hepatic panel (05/03/2018 9:58 AM CDT) Analysis Performed At Patho logist Time Signature Bilirubin Direct 0.4 (H) 0.0 - 0.2 05/03/2018 [place] mg/dL 10:33 AM [facility] Bilirubin Total 1.0 0.2 - 1.3 05/03/2018 [place] mg/dL 10:33 AM [facility] Albumin 3.7 3.4 - 5.0 05/03/2018 [place] g/dL 10:33 AM [facility] Protein Total 7.9 6.8 - 8.8 05/03/2018 [place] g/dL 10:33 AM [facility] Alkaline 29 (L) 40 - 150 05/03/2018 [place] Phosphatase U/L 10:33 AM [facility] ALT 31 0 - 70 U/L 05/03/2018 [place] 10:33 AM [facility] AST 25 0 - 45 U/L 05/03/2018 [place] 10:33 AM [facility] Specimen Anatomical Collection Method Collection Time Receive d Time (Source) Location / / Volume Laterality Blood specimen 05/03/2018 9:58 AM 018 9:59 (specimen) CDT AM CDT Ankur Smith MD LAB - BLOOD ORDERABLES Performing Organization Address [facility] Phon e Number [place] [address] [place] [address] [facility] [address] [place], [place] [address] [phone] (ABNORMAL) Basic metabolic panel (05/03/2018 9:58 AM CDT) P athologist Signature Sodium 138 133 - 144 05/03/2018 [place] mmol/L 10:33 AM [facility] Potassium 4.5 3.4 - 5.3 05/03/2018 [place] mmol/L 10:33 AM [facility] Chloride 100 94 - 109 05/03/2018 [place] mmol/L 10:33 AM [facility] Carbon Dioxide 31 20 - 32 05/03/2018 [place] mmol/L 10:33 AM [facility] Anion Gap 7 3 - 14 05/03/2018 [place] mmol/L 10:33 AM [facility] Glucose 150 (H) 70 - 99 05/03/2018 [place] mg/dL 10:33 AM [facility] Urea Nitrogen 34 (H) 7 - 30 05/03/2018 [place] mg/dL 10:33 AM [facility] Creatinine 1.25 0.66 - 05/03/2018 [place] 1.25 mg/dL 10:33 AM [facility] GFR Estimate 56 (L) >60 05/03/2018 [place] mL/min/1.7 10:[address] Comment: Non GFR Calc GFR Estimate If 67 >60 mL/min/1.7m2 05/03/2018 10:33 AM [facility] Comment: GFR Calc Calcium 9.2 8.5 - 10.1 mg/dL 05/03/2018 10:33 AM [facility] Specimen Anatomical Collection Method Collection Time Receive d Time (Source) Location / / Volume Laterality Blood specimen 05/03/2018 9:58 AM 018 9:59 (specimen) CDT [facility] Ankur Smith MD LAB - BLOOD ORDERABLES Performing Organization Address City/State/ZIP Code Phon e Number M [facility] [address] [place], [place] [address] [facility] [address] 5533 [facility] [phone] XR Chest 1 View (05/02/2018 4:14 PM [...] Diagnoses Diagnosis Persistent atrial fibrillation (H) - [facility] jing Atrial fibrillation Paroxysmal atrial fibrillation (H) Atrial fibrillation Ischemic cardiomyopathy Other specified forms of chronic ischemi c heart disease Persistent atrial fibrillation (H) Atrial fibrillation documented in this encounter Care Teams Postal Service Mail Processor Relationship Specialty Start Date End Date [facility], [facility] PCP - General 01/16/18 07/01/18 [address] [place] [address] documented as of this encounter
--- OUTSIDE RECORDS SUMMARY | 2022-08-22 06:58 | XMS_ITS | Encounter Summary ---
:1940 Author Organization [place] Address [facility] [place] [address] Care Team Providers Name Role Phone Clinic, [facility] Primary Care Provider [phone] Encounter Details Date Type Department Care Team Description 02/22/2018 [facility] Heart [facility] emic cardiomyopathy Clinic [address] [place] [address] Social History Tobacco Use [...] [address] [place] [phone] (Wo rk) 09/28/2022 Lab Lab 09/28/2022 Office Visit Cardiology Timothy Smith MD [address] [place] [phone] Trudi Grayson APRN COATING MIXER SUPERVISOR [address] [place] [phone] 11/16/2022 Ancillary Procedure Cardiology Timothy Smith MD [address] [place] [phone] (Wo rk) documented as of this encounter Procedures Procedure Name Priority Date/Time Associated Diagnosis Comme nts BASIC METABOLIC Routine 02/22/2018 9:11 AM Ischemic cardiomyop athy Results for this PANEL CDT procedure are i n the results section. documented in this encounter Results (ABNORMAL) Basic metabolic panel (02/22/2018 9:11 AM CDT) athologist Signature Sodium 143 133 - 144 02/22/2018 [place] mmol/L 10:15 AM [facility] Potassium 4.2 3.4 - 5.3 02/22/2018 [place] mmol/L 10:15 AM [facility] Chloride 108 94 - 109 02/22/2018 [place] mmol/L 10:15 AM [facility] Carbon Dioxide 30 20 - 32 02/22/2018 [place] mmol/L 10:15 AM [facility] Anion Gap 5 3 - 14 02/22/2018 [place] mmol/L 10:15 AM [facility] Glucose 151 (H) 70 - 99 02/22/2018 [place] mg/dL 10:15 AM [facility] Urea Nitrogen 30 7 - 30 02/22/2018 [place] mg/dL 10:15 AM [facility] Creatinine 1.17 0.66 - 02/22/2018 [place] 1.25 mg/dL 10:15 AM [facility] GFR Estimate 60 (L) >60 02/22/2018 [place] mL/min/1.7 10:[address] Comment: Non GFR Calc GFR Estimate If 73 >60 mL/min/1.7m2 02/22/2018 10:15 AM [facility] Comment: GFR Calc Calcium 9.1 8.5 - 10.1 mg/dL 02/22/2018 10:15 AM [facility] Specimen Anatomical Collection Method Collection Time Receive d Time (Source) Location / / Volume Laterality Blood specimen 02/22/2018 9:11 AM 018 9:17 (specimen) CDT AM CDT Mago N Redlon LABORATORY CHEMICAL ASSISTANT COATING MIXER SUPERVISOR LAB - BLOOD ORDERABLES Performing Organization Address City/State/ZIP Code Phon e Number M [facility] [address] [place], [place] [address] [facility] [address] [place], [place] [address] [phone] documented in this encounter Visit Diagnoses Diagnosis Ischemic cardiomyopathy Other specified forms of chronic ischemi c heart disease documented in this encounter Care Teams Cellular Biologist Relationship Specialty Start Date End Date Clinic, Vinny Jaimes PCP - General 01/16/18 07/01/18 [address] [place] [address] documented as of this encounter
--- OUTSIDE RECORDS SUMMARY | 2022-08-22 06:58 | XMS_ITS | Encounter Summary ---
:1940 Author Organization [place] Address [address] [facility] [place] [address] Care Team Providers Name Role Phone Clinic, [facility] Primary Care Provider [phone] Reason for Referral - Closed Specialty Diagnoses / Procedures Referred By Contact Refer red To Contact Diagnoses Paroxysmal atrial fibrillation (H) Ischemic cardiomyopathy Mago Sotomayor APRN CNP [address] [place] [address] Referral ID Status Reason Start Date Expiration Date Visits Requ ested Visits Authorized [id number] Closed 04/23/2018 04/23/2019 1 1 Reason for Visit Reason Comments Follow Up Holter /Echo - Closed Specialty Diagnoses / Procedures Referred By Contact Refer red To Contact Diagnoses SOB (shortness of breath) Timothy Smith MD [address] [place] [id number] Referral ID Status Reason Start Date Expiration Date Visits Requ ested Visits Authorized [id number] Closed 01/23/2018 01/23/2019 1 1 Encounter Details Date Type Department Care Team Description 01/23/2018 Office Visit [facility] Timothy Smith MD [address] [place] [phone] Ischemic cardiomyopathy (Primary Dx); Heart Clinic Mago Kessler, SYRUP MIXER HELPER ENTERPRISE SECURITY ARCHITECT [address] [place] [phone] Paroxysmal atrial fibrillation (H); [address] [facility] [address] SOB (shor tness of breath); [address] 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 His [...] proceed with cardioversion to see if the episcopalian of atrial kick helps improve his EF. [...] NP MT: AISHWARYA Name: RADHA VILLA Account: [id number] : 1940 Service Date: 01/23/2018 Document: [id number] Mago Keating APRN CNP - 01/23/2018 11:00 AM CDT HPI and Plan: #[id number] See dictation Orders Placed This Encounter Procedures [...] Psych: Alert and Oriented x 3 CC [facility] [address] [place] [address] Electronically signed by Mago Keating, SYRUP MIXER HELPER ENTERPRISE SECURITY ARCHITECT at 01/23/2018 4:33 PM CDT documented in this encounter Plan of Treatment Upcoming Encounters Date Type Specialty Care Team Description 08/31/2022 Appointment Respiratory Therapy Timothy Smith MD [address] [place] [address] (Wo rk) 09/28/2022 Lab Lab 09/28/2022 Office Visit Cardiology Timothy Smith MD [address] [place] [phone] Trudi Grayson, FLACO ENTERPRISE SECURITY ARCHITECT [address] [place] [phone] 11/16/2022 Ancillary Procedure Cardiology Timothy Smith MD [address] [place] [phone] (Wo rk) Scheduled Referrals Name Type Priority Associated Diagnoses Order S chedule Follow-Up with Referral Routine Paroxysmal atrial Expected : Unit Assistant fibrillation (H) 04/23/2018 Ischemic cardiomyopathy ([place]), Expires: 01/23/2019 documented as of this encounter Results (ABNORMAL) Basic metabolic panel (02/22/2018 9:11 AM CDT) P athologist Signature Sodium 143 133 - 144 02/22/2018 [facility] mmol/L 10:15 AM [facility] Potassium 4.2 3.4 - 5.3 02/22/2018 [facility] mmol/L 10:15 AM [facility] Chloride 108 94 - 109 02/22/2018 [facility] mmol/L 10:15 AM [facility] Carbon Dioxide 30 20 - 32 02/22/2018 [facility] mmol/L 10:15 AM [facility] Anion Gap 5 3 - 14 02/22/2018 [facility] mmol/L 10:15 AM [facility] Glucose 151 (H) 70 - 99 02/22/2018 [facility] mg/dL 10:15 AM [facility] Urea Nitrogen 30 7 - 30 02/22/2018 [facility] mg/dL 10:15 AM [facility] Creatinine 1.17 0.66 - 02/22/2018 [place] 1.25 mg/dL 10:15 AM [facility] GFR Estimate 60 (L) >60 02/22/2018 [place] mL/min/1.7 10:[address] Comment: Non GFR Calc GFR Estimate If 73 >60 mL/min/1.7m2 02/22/2018 10:15 AM [facility] Comment: GFR Calc Calcium 9.1 8.5 - 10.1 mg/dL 02/22/2018 10:15 AM [facility] Specimen Anatomical Collection Method Collection Time Receive d Time (Source) Location / / Volume Laterality Blood specimen 02/22/2018 9:11 AM 018 9:17 (specimen) CDT [facility] Mago N Светлана SYRUP MIXER HELPER ENTERPRISE SECURITY ARCHITECT LAB - BLOOD ORDERABLES Performing Organization Address City/State/ZIP Code Phon e Number M [place] [address] [place] [address] [facility] [address] [phone] documented in this encounter Visit Diagnoses Diagnosis Ischemic cardiomyopathy - Primary Other specified forms of chronic ischemi c heart disease Paroxysmal atrial fibrillation (H) Atrial fibrillation SOB (shortness of breath) Shortness of breath 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
--- OUTSIDE RECORDS SUMMARY | 2022-08-22 06:59 | XMS_ITS | Encounter Summary ---
:1940 Author Organization [place] Address [facility] [place] [address] Care Team Providers Name Role Phone Nas Cardenas MD Primary Care Provider Unavailable Reason for Visit Reason Comments Pacemaker Check PPM Latitude NXT Encounter Details Date Type Department Care Team Description 10/04/2016 Allied Health/Nurse [facility] Pac emaker Check (PPM Visit Heart Clinic [place] Latitude NXT) [facility] [address] [place] [phone] Social History Tobacco Use Types Packs/Day Years Used Date Smoking Tobacco: Never Alcohol Use Standard Drinks/Week Comments No 0 (1 standard drink = 0.6 oz pure alcoho l) Sex Assigned at Date Recorded Not on file documented as of this encounter Progress Notes Sary Riojas - 10/04/2016 8:17 AM CST [employer] EL L121 (D) Remote PPM Device Check AP: 2% AUTOMATION MANAGER: 13% Mode: DDDR Presenting Rhythm: Aflutter with VS and AUTOMATION MANAGER Heart Rate: evidence on histogram of some [...] results and next transmission date. Darius CVT OR SOFTWARE ENGINEER documented in this encounter Plan of Treatment Upcoming Encounters Date Type Specialty Care Team Description 08/31/2022 Appointment Respiratory Therapy Timothy Smith MD [address] [place] [address] (Wo rk) 09/28/2022 Lab Lab 09/28/2022 Office Visit Cardiology Timothy Smith MD [address] [place] [address] Trudi Grayson APRN COSMETIC SURGEON [address] [place] [address] 11/16/2022 Ancillary Procedure Cardiology Timothy Smith MD [address] [place] [phone] (Wo rk) documented as of this encounter Procedures Procedure Name Priority Date/Time Associated Diagnosis Comme nts Z PM DEVICE Routine 10/04/2016 8:35 AM Cardiac pacemaker in INTERROGATE REMOTE, UP JUNIOR SOFTWARE ENGINEER situ TO 90 DAYS, LEAD/LEADLESS HC INTERR DEVICE EVAL Routine 10/04/2016 Cardiac pacemaker i n REMOTE, PM/LDLS PM/ICD, situ UP TO 90 DAYS documented in this encounter Results INTERROGATION DEVICE EVAL REMOTE, PACER/ICD (21133) (10/04/2016) Narrative This result has an attachment that is no t available. Chris Hinds MD PROCEDURES documented in this encounter Visit Diagnoses Diagnosis Cardiac pacemaker in situ - Primary documented in this encounter Care Teams Lead Athlete Relationship Specialty Start Date End Date Nas Cardenas MD PCP - General Family Practice 02/01/12 04/12/17 documented as of this encounter
--- OUTSIDE RECORDS SUMMARY | 2022-08-22 06:59 | XMS_ITS | Encounter Summary ---
:1940 Author Organization [place] Address [address] [facility] [place] [address] Care Team Providers Name Role Phone Graham Licona MD Primary Care Provider Reason for Visit Reason Comments Pacemaker Check remote alert for VHR Encounter Details Date Type Department Care Team Description 04/20/2017 Documentation Only [facility] Fabiola Hurtado aceprker Check Heart Clinic Patt Bui RN, RN (remote alert for [address] [facility] HEART VHR) [address] [place] [address] [phone] [address] [place] [address] Social History Tobacco Use Types Packs/Day Years Used Date Smoking Tobacco: Never Alcohol Use Standard Drinks/Week Comments No 0 (1 standard drink = 0.6 oz pure alcoho l) Sex Assigned at Date Recorded Not on file documented as of this encounter Progress Notes Fabiola Hurtado, RN, RN - 04/20/2017 9:28 AM CDT [facility] PPM- Alert- NO CHARGE Another alert for [...] [address] [place] [address] (Wo rk) 09/28/2022 Lab Lab 09/28/2022 Office Visit Cardiology Timothy Smith MD [address] [place] [address] Trudi Grayson APRN CNP [address] [place] [address] 11/16/2022 Ancillary Procedure Cardiology Timothy Smith MD [address] [place] [address] (Wo rk) documented as of this encounter Visit Diagnoses Not on filedocumented in this encounter Care Teams Timber Robber Relationship Specialty Start Date End Date Graham Licona MD PCP - General Family Practice 04/13/17 01/15/18 [facility] [address] [place] [address] documented as of this encounter
--- OUTSIDE RECORDS SUMMARY | 2022-08-22 06:59 | XMS_ITS | Encounter Summary ---
:1940 Author Organization [place] Address [address] [facility] [place] [address] Care Team Providers Name Role Phone Nas Cardenas MD Primary Care Provider Unavailable Reason for Visit Reason Comments Pacemaker Check COurtesy Encounter Details Date Type Department Care Team Description 03/19/2017 [facility]urse [facility] [place] Pac emaker Check Visit Heart Clinic Patt (COurtesy) [address] [facility] [address] [place] [phone] Social History Tobacco Use Types Packs/Day Years Used Date Smoking Tobacco: Never Alcohol Use Standard Drinks/Week Comments No 0 (1 standard drink = 0.6 oz pure alcoho l) Sex Assigned at Date Recorded Not on file documented as of this encounter Progress Notes Quang Montalvo, RN - 03/19/2017 4:30 PM CDT [employer] PPM Courtesy-No Charge Alert received for VT episode. EGM suggest PAT. Patient also had several NSVT episodes; EGMs also suggest PAT Lead measurements are stable. Will continue to monitor. YYangRN. documented in this encounter Plan of Treatment Upcoming Encounters Date Type Specialty Care Team Description 08/31/2022 Appointment Respiratory Therapy Timothy Smith MD [address] [place] [phone] (Wo rk) 09/28/2022 Lab Lab 09/28/2022 Office Visit Cardiology Timothy Smith MD [address] [place] [phone] Trudi Grayson APRN CNP [address] [phone] 11/16/2022 Ancillary Procedure Cardiology Timothy Smith MD [address] [place] [phone] (Wo rk) documented as of this encounter Visit Diagnoses Diagnosis Cardiac pacemaker in situ - Primary documented in this encounter Care Teams Inspector Grain Mill Products Relationship Specialty Start Date End Date Nas Cardenas MD PCP - General Family Practice 02/01/12 04/12/17 documented as of this encounter
--- OUTSIDE RECORDS SUMMARY | 2022-08-22 06:59 | XMS_ITS | Encounter Summary ---
:1940 Author Organization [place] Address [address] [facility] [place] [address] Care Team Providers Name Role Phone Nas Cardenas MD Primary Care Provider Unavailable Reason for Referral - Closed Specialty Diagnoses / Procedures Referred By Contact Refer red To Contact Diagnoses SSS (sick sinus syndrome) (H) Typical atrial flutter (H) [facility] [address] [facility] [address] [place] [phone] Referral ID Status Reason Start Date Expiration Date Visits Requ ested Visits Authorized [id number] Closed 04/11/2016 04/11/2017 1 1 Reason for Visit Reason Comments Pacemaker Check 6 weeks S/P PPM implant Encounter Details Date Type Department Care Team Description 03/28/2016 Allied Health/Nurse [facility] Pac emaker Check (6 Visit Heart Clinic [place] weeks S/P PPM implant) [address] [facility] [address] [place] [address] Social History Tobacco Use Types Packs/Day Years Used Date Smoking Tobacco: Never Alcohol Use Standard Drinks/Week Comments No 0 (1 standard drink = 0.6 oz pure alcoho l) Sex Assigned at Date Recorded Not on file documented as of this encounter Progress Notes Fabiola Hurtado, RN, RN - 03/28/2016 12:56 PM CDT [place] [employer] (D) Pacemaker Device Check 6 wks S/P implant AP:2 % MIDDLE SCHOOL COACH: 10 % Mode: DDDR 60/130 Underlying Rhythm: A flutter at time of interrogation (mostly 2:1) with v- rate an86-269 BPM Heart Rate: Evidence on histogram of [...] Therapy Timothy Smith MD [address] [place] [id number] (Wo rk) 09/28/2022 Lab Lab 09/28/2022 Office Visit Cardiology Timothy Smith MD [address] [place] [id number] Trudi Grayson APRN MEAT PRESS OPERATOR [address] [id number] 11/16/2022 Ancillary Procedure Cardiology Timothy Smith MD [address] [place] [phone] (Wo rk) Scheduled Referrals Name Type Priority Associated Diagnoses Order S chedule Follow-Up with Referral Routine SSS (sick sinus Expected: Wireline Supervisor syndrome) (H ) 04/11/2016 Typical atrial (Approximate) [...] - 04/18/2016 [facility] [address] [facility] [address] [facility] [address] 04/13/2016 Patient: ??Haris Villa Chart: [id number] : ??1940 Age: ??75 year old Sex: ??male Procedure: ??Holter Monitor Placed: plea se see scanned document for result once interpretation is comple star. Director Counseling Bureau performing hook-up: ??Sheri Yuen Timothy Smith MD CV CARDIAC SERVICES ORDERABL ES Performing Organization Address City/State/ZIP Code Phon e Number [facility] PM DEVICE PROGRAMMING EVAL, DUAL LEAD PACER ([id number]) (03/28/2016) Narrative This result has an attachment that is no t available. Steven Canchola MD PROCEDURES documented in this encounter Visit Diagnoses Diagnosis Cardiac pacemaker in situ - Primary SSS (sick sinus syndrome) (H) Sinoatrial node dysfunction Typical atrial flutter (H) Atrial flutter SSS (sick sinus syndrome) (H) Sinoatrial node dysfunction Typical atrial flutter (H) Atrial flutter documented in this encounter Care Teams Tattoo Designer Relationship Specialty Start Date End Date Nas Cardenas MD PCP - General Family Practice 02/01/12 04/12/17 documented as of this encounter
--- OUTSIDE RECORDS SUMMARY | 2022-08-22 06:59 | XMS_ITS | Encounter Summary ---
:1940 Author Organization [place] Address [facility] [address] Care Team Providers Name Role Phone Nas Cardenas MD Primary Care Provider Unavailable Reason for Visit Reason Comments ICD Check Encounter Details Date Type Department Care Team Description 03/26/2017 Allied Health/Nurse Health [place] [facility] ICD Check Visit Clinic [place] [address] [facility] [address] [place] [address] Social History Tobacco Use Types Packs/Day Years Used Date Smoking Tobacco: Never Alcohol Use Standard Drinks/Week Comments No 0 (1 standard drink = 0.6 oz pure alcoho l) Sex Assigned at Date Recorded Not on file documented as of this encounter Progress Notes Mary Norris, RN, RN - 03/26/2017 4:30 PM CDT Courtesy Check: No charge. 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
--- OUTSIDE RECORDS SUMMARY | 2022-08-22 06:59 | XMS_ITS | Encounter Summary ---
:1940 Author Organization [place] Address [address] [facility] [place] [address] Care Team Providers Name Role Phone Nas Cardenas MD Primary Care Provider Unavailable Reason for Visit Reason Onset Date Comments Other 04/06/2016 left messge stating he was not going to start warfarin Encounter Details Date Type Department Care Team Description 04/06/2016 Telephone [facility] Heart Fabiola Hurtado (left messge Clinic [place] Bui, RN, RN stating he was not [address] [facility] HEART going to start [facility] [address] CLINIC warfarin) [place] [phone] [address] [facility] [phone] [place] [address] [place] [phone] Social History Tobacco Use Types Packs/Day Years [...] Appointment Respiratory Therapy Timothy Smith MD [address] [place] [phone] (Wo rk) 09/28/2022 Lab Lab 09/28/2022 Office Visit Cardiology Timothy Smith MD [address] [place] [address] Trudi Grayson APRN INTERCHANGE AGENT [address] [address] 11/16/2022 Ancillary Procedure Cardiology Timothy Smith MD [address] [place] [phone] (Wo rk) documented as of this encounter Visit Diagnoses Not on filedocumented in this encounter Care Teams Bite Block Maker Relationship Specialty Start Date End Date Nas Cardenas MD PCP - General Family Practice 02/01/12 04/12/17 documented as of this encounter
--- OUTSIDE RECORDS SUMMARY | 2022-08-22 06:59 | XMS_ITS | Encounter Summary ---
:1940 Author Organization [place] Address [facility] [place] [address] Care Team Providers Name Role Phone Nas Cardenas MD Primary Care Provider Unavailable Reason for Visit Reason Comments Pacemaker Check PPM Latitude NXT Encounter Details Date Type Department Care Team Description 06/28/2016 Allied Health/Nurse [facility] Pac emaker Check (PPM Visit Heart [facility] [place] Latitude NXT) [address] [place] [address] [address] [place] [phone] Social History Tobacco Use Types Packs/Day Years Used Date Smoking Tobacco: Never Alcohol Use Standard Drinks/Week Comments No 0 (1 standard drink = 0.6 oz pure alcoho l) Sex Assigned at Date Recorded Not on file documented as of this encounter Progress Notes Sary Riojas - 06/28/2016 9:00 AM CDT 90 day Latitude NXT Remote PPM Device Check AP: 2% ESTATE AGENT: 14% Mode: DDDR Underlying Rhythm: Aflutter with [...] [address] [place] [id number] (Wo rk) 09/28/2022 Lab Lab 09/28/2022 Office Visit Cardiology Timothy Smith MD [address] [place] [address] Trudi Grayson APRN DISTRIBUTION SPEC [address] [place] [phone] 11/16/2022 Ancillary Procedure Cardiology Timothy Smith MD [address] [place] [phone] (Wo rk) documented as of this encounter Procedures Procedure Name Priority Date/Time Associated Diagnosis Comme nts Z PM DEVICE Routine 06/28/2016 9:13 AM Cardiac pacemaker in INTERROGATE REMOTE, UP CDT situ TO 90 DAYS, LEAD/LEADLESS HC INTERR DEVICE EVAL Routine 06/28/2016 Cardiac pacemaker i n REMOTE, PM/LDLS PM/ICD, situ UP TO 90 DAYS documented in this encounter Results INTERROGATION DEVICE EVAL REMOTE, PACER/ICD (35649) (06/28/2016) Narrative This result has an attachment that is no t available. Basil Guadalupe MD PROCEDURES documented in this encounter Visit Diagnoses Diagnosis Cardiac pacemaker in situ - Primary documented in this encounter Care Teams Art Coordinator Relationship Specialty Start Date End Date Nas Cardenas MD PCP - General Family Practice 02/01/12 04/12/17 documented as of this encounter
--- OUTSIDE RECORDS SUMMARY | 2022-08-22 06:59 | XMS_ITS | Encounter Summary ---
:1940 Author Organization [place] Address [address] [facility] [place] [address] Care Team Providers Name Role Phone Nas Cardenas MD Primary Care Provider Unavailable Reason for Visit Reason Onset Date Comments Prior Auth - Medication 04/24/2016 ELIQUIS 5 MG- NO PA NEEDED Encounter Details Date Type Department Care Team Description 04/24/2016 Telephone [facility] Zarina Smith MD Prior Auth - Medication Clinic [place] [address] (ELIQUIS 5 MG- NO PA [address] NEEDED) [facility] [address] [place] [address] [place] [phone] Social History Tobacco Use Types Packs/Day Years [...] [address] [place] [phone] (Wo rk) 09/28/2022 Lab Lab 09/28/2022 Office Visit Cardiology Timothy Smith MD [address] [place] [phone] Trudi Grayson APRN DAIRY NUTRITION SPECIALIST [address] [address] 11/16/2022 Ancillary Procedure Cardiology Timotyh Smith MD [address] [place] [phone] (Wo rk) documented as of this encounter Visit Diagnoses Not on filedocumented in this encounter Care Teams Integrated Circuit Layout Designer Relationship Specialty Start Date End Date Nas Cardenas MD PCP - General Family Practice 02/01/12 04/12/17 documented as of this encounter
--- OUTSIDE RECORDS SUMMARY | 2022-08-22 06:59 | XMS_ITS | Encounter Summary ---
:1940 Author Organization [place] Address [address] [facility] [place] [address] Care Team Providers Name Role Phone Nas Cardenas MD Primary Care Provider Unavailable Reason for Referral - Closed Specialty Diagnoses / Procedures Referred By Contact Refer red To Contact Diagnoses Sinoatrial node dysfunction (H) Tammy Montenegro PA-C [address] [place] [address] Referral ID Status Reason Start Date Expiration Date Visits Requ ested Visits Authorized [id number] Closed 12/04/2016 12/04/2017 1 1 Reason for Visit Reason Comments Heart Problem CAD Irregular Heart Beat s/p PPM - Closed Specialty Diagnoses / Procedures Referred By Contact Refer red To Contact Diagnoses Sinoatrial node dysfunction (H) Timothy Smith MD [address] [place] [address] Referral ID Status Reason Start Date Expiration Date Visits Requ ested Visits Authorized [id number] Closed 03/06/2016 03/06/2017 1 1 Encounter Details Date Type Department Care Team Description 03/09/2016 Office Visit [facility] Timothy Smith MD [address] [place] [phone] Cardiac pacemaker in situ (Primary Dx); Heart Clinic Tammy Carver PA-C [address] [place] [address] Sinoatrial node dysfunction (H); [address] [facility] Benign es sential hypertension; South [address] Typical atrial flutter (H) [place] [phone] Social History Tobacco Use Types Packs/Day Years [...] on Sunday 6.28 @ 1 PM in [place] - call [phone] if you need to reschedule 2. Reviewed your angiogram/heart catheterization done in the hospital showing all of your bypasses still look great! 3. Continue to monitor for any lightheadedness or chest discomfort. 4. See Dr. Smith in 11/2016 but call earlier if need to be seen or any questions! My nurse is ZEINAB: [phone] documented in this encounter Progress Notes Tammy [...] blood pressure control. Unfortunately, he presented to [facility] on 02/01 and complained about chest fullness and increasing shortness of breath. His troponin was elevated and therefore, he was admitted [facility]. 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 Ultimately, he underwent dual-chamber [employer] pacemaker placement on 02/04/2016. Interestingly, he [...] Asystole. He is now status post dual-chamber [employer] pacemaker implantation. His first device check [...] TAMMY MONTENEGRO PA-C MT: Name: RADHA VILLA MRN: [id number] Account: [id number] : 1940 Service Date: 03/09/2016 Document: [id number] Tammy Montenegro PA-C - 03/09/2016 9:13 AM CDT HPI and Plan: See dictation #[id number] Orders Placed This Encounter Procedures ??? Follow-Up with Computerized Machine Fabric Cutter ??? EKG 12-lead complete w/read - Clinics [...] person and place CC Nas Cardenas MD [facility] [address] [place] [address] documented in this encounter Plan of Treatment Upcoming Encounters Date Type Specialty Care Team Description 08/31/2022 Appointment Respiratory Therapy Timothy Smith MD [address] [place] [phone] (Wo rk) 09/28/2022 Lab Lab 09/28/2022 Office Visit Cardiology Timothy Smith MD [address] [place] [phone] Trudi Grayson APRN PIANO REGULATOR [address] [address] 11/16/2022 Ancillary Procedure Cardiology Timothy Smith MD [address] [place] [address] (Wo rk) Scheduled Referrals Name Type Priority Associated Diagnoses Order S chedule Follow-Up with Referral Routine Sinoatrial node Expected: Computerized Machine Fabric Cutter dysfunction (H) 12/04 (Approximate), Expires: 03/09/2017 documented as of this encounter Visit Diagnoses Diagnosis Cardiac pacemaker in situ - Primary Sinoatrial node dysfunction (H) Sinoatrial node dysfunction Benign essential hypertension Essential hypertension, benign Typical atrial flutter (H) Atrial flutter documented in this encounter Care Teams New Car Inspector Relationship Specialty Start Date End Date Nas Cardenas MD PCP - General Family Practice 02/01/12 04/12/17 documented as of this encounter
--- OUTSIDE RECORDS SUMMARY | 2022-08-22 06:59 | XMS_ITS | Encounter Summary ---
:1940 Author Organization [place] Address [address] [facility] [place] [address] Care Team Providers Name Role Phone Nas Cardenas MD Primary Care Provider Unavailable Reason for Referral Specialty Diagnoses / Procedures Referred By Contact Refer red To Contact Ankur Smith MD [address] [place] [address] Referral ID Status Reason Start Date Expiration Date Visits Requ ested Visits Authorized Scheduling Instructions ANTICOAGULATION CLINIC [facility] [place] ACTICE AGREEMENT The following represents a collaborative practice agreement among the physicians of the Clinic and staff of the Anticoagulat ion Clinic Service ([facility]) Physicians shall: 1. Refer patients requiring anticoagulat ion to a specialty service staffed by personnel of Pharmacy Services and super vised by Clinic physicians. 2. Respond to questions and referrals fr pharmacy staff regarding delinquent or difficult patients. 3. Inform the [facility] staff when a new patie nt is [...] of adverse or sub-therapeutic effects including at [facility] the following: Has the patient experienced any [...] Sinoatrial node dysfunction (H) Tammy Montenegro PA-C [address] [place] [address] Referral ID Status Reason Start Date Expiration Date Visits Requ ested Visits Authorized [id number] Closed 12/04/2016 12/04/2017 1 1 Encounter Details Date Type Department Care Team Description 12/29/2016 Office Visit [facility] Buffy Montenegro PA-C [address] [place] [phone] Paroxysmal atrial fibrillation (H) (Prim arnie Dx); Heart Clinic Ankur Beauchamp MD [address] [place] [phone] Sinoatrial node dysfunction (H) [address] [facility] [address] [place] [phone] Social History Tobacco Use Types Packs/Day Years [...] flutter ablation in 2012. He later receiveda [place] [employer] dual-chamber pacemaker for symptomatic sinus node [...] in your office. cc: Nas Cardenas MD [facility] [address] [place] [address] ANKUR SMITH MD MT: MANDIE Name: RADHA VILLA MRN: [id number] Account: [id number] : 1940 Service Date: 12/29/2016 Document: [id number] Ankur Smith MD - 12/29/2016 1:15 PM [...] [facility] [address] [place] [address] documented in this encounter Plan of Treatment Upcoming Encounters Date Type Specialty Care Team Description 08/31/2022 Appointment Respiratory Therapy Ankur Smith MD [address] [place] [address] (Wo rk) 09/28/2022 Lab Lab 09/28/2022 Office Visit Cardiology Ankur Smith MD [address] [place] [address] Trudi Grayson APRN SILVER BUFFER [address] [phone] 11/16/2022 Ancillary Procedure Cardiology Ankur Smith MD [address] [place] [phone] (Fiorella olvera) Scheduled Referrals Name Type Priority Associated Diagnoses Order S chedule INR/ANTICOAG REFERRAL Referral Routine Paroxysmal atrial E xpected: 12/29/2016, fibrillation (H) Expires: documented as of this encounter Results Holter Monitor 24 hour - Adult (01/08/2017) Narrative [facility] - 01/08/[address] [address] 01/04/2017 Patient: ??Radhastephanie Covingtonolive Chart: [id number] : ??1940 Age: ??76 year old Sex: ??male Procedure: ??Holter Monitor Placed: plea se see scanned document for result once interpretation is completed. Account Financial Manager performing hook-up: ??Sheri Yuen Ankur Smith MD CV CARDIAC SERVICES ORDERABL ES Performing Organization Address City/State/ZIP Code Phon e Number [facility]ANT documented in this encounter Visit Diagnoses Diagnosis Paroxysmal atrial fibrillation (H) - Ria jing Atrial fibrillation Sinoatrial node dysfunction (H) Sinoatrial node dysfunction Paroxysmal atrial fibrillation (H) Atrial fibrillation documented in this encounter Care Teams Stock And Station Agent Relationship Specialty Start Date End Date Nas Cardenas MD PCP - General Family Practice 02/01/12 04/12/17 documented as of this encounter
--- OUTSIDE RECORDS SUMMARY | 2022-08-22 06:59 | XMS_ITS | Encounter Summary ---
:1940 Author Organization [place] Address [address] [facility] [place] [address] Care Team Providers Name Role Phone Nas Cardenas MD Primary Care Provider Unavailable Reason for Visit Reason Comments Heart Problem 6 week follow up - Closed Specialty Diagnoses / Procedures Referred By Contact Refer red To Contact Diagnoses SSS (sick sinus syndrome) (H) Typical atrial flutter (H) [facility] [address] [id number] [place] [address] Referral ID Status Reason Start Date Expiration Date Visits Requ ested Visits Authorized [id number] Closed 04/11/2016 04/11/2017 1 1 Encounter Details Date Type Department Care Team Description 05/15/2016 Office Visit [facility] Ankur Smith MD SSS (sick sinus syndrome) (H); Heart Clinic [place] [address] [facility] Typical atrial flutter (H) [address] [id number] [place] [address] [place] [address] Social History Tobacco Use Types [...] CDT May 15, 2016 Nas Cardenas MD [facility] [address] [place], [place] [id number] RE: Radha Villa : [address] Cardneas: I saw Mr. Villa for followup of atrial flutter and sinus node dysfunction. He is a 75-year-old [place] with a history of coronary artery disease and previous CABG. He had atrial flutter ablation in 2012. The patient was admitted for possible acute coronary syndrome in January. During the hospitalization, he was found to have multiple episodes of sinus asystole. He received a [employer] [employer] dual-chamber pacemaker implantation during the same hospitalization because he reported history of recurrent near-syncope prior to the admission. Since the pacemaker implantation, he has not had any recurrent syncope. He did undergo coronary angiography that showed patent grafts, although his ruby vessels were occluded. At the present time, [...] MD MT: KALPESH Name: RADHA VILLA Account: [id number] : 1940 Service Date: 05/15/2016 Document: [id number] Ankur Smith MD - 05/15/2016 1:29 PM [...] MD [address] [place] [phone] (Wo rk) 09/28/2022 Lab Lab 09/28/2022 Office Visit Cardiology Ankur Smith MD [address] [place] [phone] Trudi Grayson APRN OSCILLOGRAPH TECHNICIAN [address] [address] 11/16/2022 Ancillary Procedure Cardiology Ankur Smith MD [address] [place] [address] (Wo rk) documented as of this encounter Visit Diagnoses Diagnosis SSS (sick sinus syndrome) (H) Sinoatrial node dysfunction Typical atrial flutter (H) Atrial flutter documented in this encounter Care Teams Geosciences Faculty Member Relationship Specialty Start Date End Date Nas Cardenas MD PCP - General Family Practice 02/01/12 04/12/17 documented as of this encounter
--- OUTSIDE RECORDS SUMMARY | 2022-08-22 06:59 | XMS_ITS | Encounter Summary ---
:1940 Author Organization [place] Address [facility] [place] [address] Care Team Providers Name Role Phone Nas Cardenas MD Primary Care Provider Unavailable Reason for Visit Reason Comments ICD Check Encounter Details Date Type Department Care Team Description 03/29/2017 Allied Health/Nurse Health [place] [facility] ICD Check Visit Clinic [address] [place] [address] Social History Tobacco Use Types Packs/Day Years Used Date Smoking Tobacco: Never Alcohol Use Standard Drinks/Week Comments No 0 (1 standard drink = 0.6 oz pure alcoho l) Sex Assigned at Date Recorded Not on file documented as of this encounter Progress Notes Mary Norris, RN, RN - 03/29/2017 4:30 PM CDT Courtesy check: No charge. [employer] remote ICD alert for VT and NSVT [...] to schedule f/u with Dr Smith or INFORMATION ASSURANCE if symptoms persist. Or if he cont to have frequent fast rates, we can review need to med changes with Dr Smith. documented in this encounter Plan of Treatment Upcoming Encounters Date Type Specialty Care Team Description 08/31/2022 Appointment Respiratory Therapy Timothy Smith MD [address] [place] [phone] (Wo rk) 09/28/2022 Lab Lab 09/28/2022 Office Visit Cardiology Timothy Smith MD [address] [place] [phone] Trudi Grayson APRN GLASS BLOCK INSTALLER [address] [id number] 11/16/2022 Ancillary Procedure Cardiology Timothy Smith MD [address] [place] [phone] (Wo rk) documented as of this encounter Visit Diagnoses Diagnosis ICD (implantable cardioverter-defibrilla tor) in place - Primary documented in this encounter Care Teams Enterprise Architect Manager Relationship Specialty Start Date End Date Nas Cardenas MD PCP - General Family Practice 02/01/12 04/12/17 documented as of this encounter
--- OUTSIDE RECORDS SUMMARY | 2022-08-22 06:59 | XMS_ITS | Encounter Summary ---
:1940 Author Organization [place] Address [address] [facility] [place] [address] Care Team Providers Name Role Phone Graham Licona MD Primary Care Provider Reason for Visit Reason Comments Pacemaker Check Alert for VHR Encounter Details Date Type Department Care Team Description 04/24/2017 Documentation Only [facility] Fabiola Hurtado [facility] [place] Bui RN, RN (Alert for VHR) [address] [facility] [address] [place] [phone] [facility] [phone] [address] [place] [address] Social History Tobacco Use Types Packs/Day Years Used Date Smoking Tobacco: Never Alcohol Use Standard Drinks/Week Comments No 0 (1 standard drink = 0.6 oz pure alcoho l) Sex Assigned at Date Recorded Not on file documented as of this encounter Progress Notes Fabiola Hurtado RN, RN - 04/24/2017 7:44 AM CDT [employer] [facility] PPM ALERT Alert for VHR, (4 [...] [address] [place] [address] (Wo rk) 09/28/2022 Lab Lab 09/28/2022 Office Visit Cardiology Timothy Smith MD [address] [place] [address] Trudi Grayson APRN DIGITAL MUSIC INSTRUCTOR [address] [place] [address] 11/16/2022 Ancillary Procedure Cardiology Timothy Smith MD [address] [place] [id number] (Wo rk) documented as of this encounter Visit Diagnoses Not on filedocumented in this encounter Care Teams Cvicu Rn Relationship Specialty Start Date End Date Graham Licona MD PCP - General Family Practice 04/13/17 01/15/18 [facility] [address] [place] [address] documented as of this encounter
--- OUTSIDE RECORDS SUMMARY | 2022-08-22 06:59 | XMS_ITS | Encounter Summary ---
:1940 Author Organization [place] Address [address] [facility] [place] [address] Care Team Providers Name Role Phone Graham Licona MD Primary Care Provider Reason for Visit Reason Comments Pacemaker Check Courtesy/Alert Encounter Details Date Type Department Care Team Description 04/19/2017 Allied Health/Nurse [facility] Pac emaker Check Visit [facility] [place] (Courtesy/Alert) [address] [facility] [address] [place] [address] Social History Tobacco Use Types Packs/Day Years Used Date Smoking Tobacco: Never Alcohol Use Standard Drinks/Week Comments No 0 (1 standard drink = 0.6 oz pure alcoho l) Sex Assigned at Date Recorded Not on file documented as of this encounter Progress Notes Quang Montalvo, RN - 04/19/2017 4:[address] [facility] PPM Courtesy/ No Charge Alert received for VT episodes. EGMs reviewed showing AF with RVR between 21 seconds and 1 minute and 13 seconds. Patient has know AF. Will continue to monitor. YRadha documented in this encounter Plan of Treatment Upcoming Encounters Date Type Specialty Care Team Description 08/31/2022 Appointment Respiratory Therapy Timothy Smith MD [address] [facility] [address] [place] [id number] (Wo rk) 09/28/2022 Lab Lab 09/28/2022 Office Visit Cardiology Timothy Smith MD [address] [place] [phone] Trudi Grayson, FLACO FIRE OFFICER [address] [place] [id number] 11/16/2022 Ancillary Procedure Cardiology Timothy Smith MD [address] [place] [id number] (Wo rk) documented as of this encounter Visit Diagnoses Diagnosis Cardiac pacemaker in situ - Primary documented in this encounter Care Teams Poison Information Specialist Relationship Specialty Start Date End Date Graham Licona MD PCP - General Family Practice 04/13/17 01/15/18 [facility] [address] [place] [address] documented as of this encounter
--- OUTSIDE RECORDS SUMMARY | 2022-08-22 06:59 | XMS_ITS | Encounter Summary ---
:1940 Author Organization [place] Address [address] [place] [address] Care Team Providers Name Role Phone Nas Cardenas MD Primary Care Provider Unavailable Reason for Visit (Routine) - Closed Specialty Diagnoses / Procedures Referred By Contact Refer red To Contact Cardiology Diagnoses Per Fabiola Woo Cardiac Test [facility] Procedures HOLTER MONITOR [address] [place], [place] [address] Phone: Fax: Referral ID Status Reason Start Date Expiration Date Visits Requ ested Visits Authorized [id number] Closed 03/29/2016 03/29/2017 1 1 Encounter Details Date Type Department Care Team Description 04/13/2016 Hospital Encounter [facility] Timothy Smith MD SSS (sick sinus syndrome) (H); Care Center [address] [place] [address] Typical atrial flutter (H) [address] [facility] [address] [place] [address] [place], [place] [phone] [address] (Work) [phone] Social History Tobacco Use Types Packs/Day Years [...] 08/31/2022 Appointment Respiratory Therapy Timothy Smith MD [address] [place] [address] (Wo rk) 09/28/2022 Lab Lab 09/28/2022 Office Visit Cardiology Timothy Smith MD [address] [place] [address] Trudi Grayson, FLACO CHANNEL WORKER [address] [place] [address] 11/16/2022 Ancillary Procedure Cardiology Timothy Smith MD [address] [place] [id number] (Wo rk) documented as of this encounter Procedures Procedure Name Priority Date/Time Associated Diagnosis Comme nts HOLTER MONITOR 24 HOUR Routine 04/18/2016 SSS (sick sinus Re sults for this - ADULT syndrome) (H) procedure are in the Typical atrial flutter resul ts section. (H) documented in this encounter Results Holter Monitor 24 hour - Adult (04/18/2016) Narrative RADIANT - 04/18/[address] [address] 04/13/2016 Patient: ??Haris Covington Chart: [id number] : ??1940 Age: ??75 year old Sex: ??male Procedure: ??Holter Monitor Placed: plea se see scanned document for result once interpretation is comple star. Records And Tape Recordings Engineer performing hook-up: ??Sheri Yuen Timothy Smith MD CV CARDIAC SERVICES ORDERABL ES Performing Organization Address City/State/ZIP Code Phon e Number RADIANT documented in this encounter Visit Diagnoses Diagnosis SSS (sick sinus syndrome) (H) Sinoatrial node dysfunction Typical atrial flutter (H) Atrial flutter documented in this encounter Care Teams Regasification Plant Operator Relationship Specialty Start Date End Date Nas Cardenas MD PCP - General Family Practice 02/01/12 04/12/17 documented as of this encounter
--- OUTSIDE RECORDS SUMMARY | 2022-08-22 06:59 | XMS_ITS | Encounter Summary ---
:1940 Author Organization [place] Address [address] [place] [address] Care Team Providers Name Role Phone Nas Cardenas MD Primary Care Provider Unavailable Reason for Visit Reason Onset Date Comments Left Message To Call 01/23/2017 re the warfarin Encounter Details Date Type Department Care Team Description 01/23/2017 Telephone [facility] Catherine Aranda, Left Message To Call [facility] [place] (re the warfarin) [address] [place] [address] [address] [place] [phone] Social History Tobacco [...] [address] [place] [address] (Wo rk) 09/28/2022 Lab Lab 09/28/2022 Office Visit Cardiology Timothy Smith MD [address] [place] [address] Trudi Grayson APRN PRINCIPAL CLERK TYPIST [address] [place] [address] [address] 11/16/2022 Ancillary Procedure Cardiology Timothy Smith MD [address] [place] [address] (Wo rk) documented as of this encounter Visit Diagnoses Not on filedocumented in this encounter Care Teams Deburring Machine Operator Relationship Specialty Start Date End Date Nas Cardenas MD PCP - General Family Practice 02/01/12 04/12/17 documented as of this encounter
--- OUTSIDE RECORDS SUMMARY | 2022-08-22 06:59 | XMS_ITS | Encounter Summary ---
:1940 Author Organization [place] Address [address] [facility] [place] [address] Care Team Providers Name Role Phone Nas Cardenas MD Primary Care Provider Unavailable Reason for Visit Reason Comments Results Encounter Details Date Type Department Care Team Description 04/24/[address] [facility] [place] , Results Clinic [place] [id number] [place] [address] Social History Tobacco Use Types Packs/Day Years Used Date Smoking Tobacco: Never Alcohol Use Standard Drinks/Week Comments No 0 (1 standard drink = 0.6 oz pure alcoho l) Sex Assigned at Date Recorded Not on file documented as of this encounter Progress Notes Quang Montalvo, RN - 04/24/2016 3:47 PM CDT PA request called in to [phone]. YYangRN Quang Montalvo, RN - 04/24/2016 1:25 PM CDT Holter results reviewed with patient. Latitude monitor blinking light discussed with patient. Patient is scheduled to see Dr. Smith 05/15. Patient had questions about AF Ablation, instructed patient to have that discussion with Dr. Smith. Patient does not want to go on coumadin and can not afford eliquis. 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 Eliquis today [...] encounter Miscellaneous Notes Addendum Note - Quang Montalvo, RN - 04/24/2016 3:47 PM CDT Addended by: QUANG MONTALVO on: 04/24/2016 03:47 PM Modules accepted: Orders documented in this encounter Plan of Treatment Upcoming Encounters Date Type Specialty Care Team Description 08/31/2022 Appointment Respiratory Therapy Timothy Smith MD [address] [place] [address] (Wo rk) 09/28/2022 Lab Lab 09/28/2022 Office Visit Cardiology Timothy Smtih MD [address] [place] [address] Trudi Grayson APRN RN SCHOOL [address] [place] [address] [address] 11/16/2022 Ancillary Procedure Cardiology Timothy Smith MD [address] [place] [address] (Wo rk) documented as of this encounter Visit Diagnoses Not on filedocumented in this encounter Care Teams Electronic Organ Mechanic Relationship Specialty Start Date End Date Nas Cardenas MD PCP - General Family Practice 02/01/12 04/12/17 documented as of this encounter
--- OUTSIDE RECORDS SUMMARY | 2022-08-22 06:59 | XMS_ITS | Encounter Summary ---
:1940 Author Organization [place] Address [facility] [place] [address] Care Team Providers Name Role Phone Nas Cardenas MD Primary Care Provider Unavailable Reason for Visit Reason Comments Pacemaker Check Encounter Details Date Type Department Care Team Description 02/14/2016 Allied Health/Nurse [facility] Heart Pacemaker Check Visit Clinic [address] [place] [address] Social History Tobacco Use Types Packs/Day Years Used Date Smoking Tobacco: Never Alcohol Use Standard Drinks/Week Comments Yes 0 (1 standard drink = 0.6 oz pure alcoho l) Sex Assigned at Date Recorded Not on file documented as of this encounter Progress Notes Mary [place], RN, RN - 02/14/2016 11:33 AM CDT [employer] [facility] 7-10 day Post Pacemaker Device Check AP: 14 % DATA ENTRY EMAIL PROCESSOR: 8 % Mode: DDDR Underlying Rhythm: SR [...] [address] [place], [place] [address] (Wo rk) 09/28/2022 Lab Lab 09/28/2022 Office Visit Cardiology Timothy Smith MD [address] [place], [place] [phone] Trudi Grayson, SNUFF GRINDER REHABILITATION CASEWORKER [address] [place] [phone] 11/16/2022 Ancillary Procedure Cardiology Timothy Smith MD [address] [place], [place] [address] (Wo rk) documented as of this encounter Procedures Procedure Name Priority Date/Time Associated Diagnosis Comme nts HC PM DEVICE PROGRAMMING EVAL, Routine 02/14/2016 Cardiac pa cemaker in situ DUAL LEAD PACER documented in this encounter Results PM DEVICE PROGRAMMING EVAL, DUAL LEAD PACER (71079) (02/14/2016) Narrative This result has an attachment that is no t available. Steven Canchola MD PROCEDURES documented in this encounter Visit Diagnoses Diagnosis Cardiac pacemaker in situ - Primary documented in this encounter Care Teams Dobie Worker Relationship Specialty Start Date End Date Nas Cardenas MD PCP - General Family Practice 02/01/12 04/12/17 documented as of this encounter
--- OUTSIDE RECORDS SUMMARY | 2022-08-22 06:59 | XMS_ITS | Encounter Summary ---
:1940 Author Organization [place] Address [address] [facility] [place] [address] Care Team Providers Name Role Phone Nas Cardenas MD Primary Care Provider Unavailable Reason for Visit Reason Onset Date Comments Refill Request 06/15/2016 Encounter Details Date Type Department Care Team Description 06/15/2016 Refill [facility] Heart Marian Vega, Refill Request Clinic [place] [address] [facility] [address] [place] [phone] Social History Tobacco Use Types Packs/Day Years [...] [address] [place] [phone] (Wo rk) 09/28/2022 Lab Lab 09/28/2022 Office Visit Cardiology Timothy Smith MD [address] [place] [address] Trudi Grayson APRN EMPLOYEE BENEFITS COORDINATOR [address] [address] 11/16/2022 Ancillary Procedure Cardiology Timothy Smith MD [address] [place] [address] (Wo rk) documented as of this encounter Visit Diagnoses Diagnosis Atrial flutter (H) - Primary Atrial flutter documented in this encounter Care Teams Linen Grader Relationship Specialty Start Date End Date Nas Cardenas MD PCP - General Family Practice 02/01/12 04/12/17 documented as of this encounter
--- OUTSIDE RECORDS SUMMARY | 2022-08-22 06:59 | XMS_ITS | Encounter Summary ---
:1940 Author Organization [place] Address [address] [place] [address] Care Team Providers Name Role Phone Graham Licona MD Primary Care Provider Reason for Visit Reason Comments Pacemaker Check annual threshold Encounter Details Date Type Department Care Team Description 04/13/2017 Allied Health/Nurse [facility] Pac emaker Check (annual Visit [facility] [place] threshold) [address] [facility] [address] [place] [address] Social History Tobacco Use Types Packs/Day Years Used Date Smoking Tobacco: Never Alcohol Use Standard Drinks/Week Comments No 0 (1 standard drink = 0.6 oz pure alcoho l) Sex Assigned at Date Recorded Not on file documented as of this encounter Progress Notes Sammi Hill, SIENNA - 04/13/2017 9:45 AM CDT [employer] [facility] (D) Pacemaker Device Check AP: 1 % MILIEU THERAPIST: 15 % Mode: DDDR 60-130, changed to [...] [address] [place] [phone] (Wo rk) 09/28/2022 Lab Lab 09/28/2022 Office Visit Cardiology Timothy Smith MD [address] [place] [address] Trudi Grayson APRN CNP [address] [place] [address] 11/16/2022 Ancillary Procedure Cardiology Timothy Smith MD [address] [place] [address] (Wo rk) documented as of this encounter Procedures Procedure Name Priority Date/Time Associated Diagnosis Comme [facility] PM DEVICE PROGRAMMING Routine 04/13/2017 Cardiac pacemaker in situ EVAL, DUAL LEAD PACER Sinoatrial node dys function (H) documented in this encounter Results PM DEVICE PROGRAMMING EVAL, DUAL LEAD PACER ([id number]) (04/13/2017) Narrative This result has an attachment that is no t available. Basil Guadalupe MD PROCEDURES documented in this encounter Visit Diagnoses Diagnosis Cardiac pacemaker in situ - Primary Sinoatrial node dysfunction (H) Sinoatrial node dysfunction documented in this encounter Care Teams Product Test Engineer Relationship Specialty Start Date End Date Graham Licona MD PCP - General Family Practice 04/13/17 01/15/[address] [facility] [address] [place] [address] documented as of this encounter
--- OUTSIDE RECORDS SUMMARY | 2022-08-22 06:59 | XMS_ITS | Encounter Summary ---
:1940 Author Organization [place] Address [facility] [place] [address] Care Team Providers Name Role Phone Nas Cardenas MD Primary Care Provider Unavailable Reason for Visit Reason Comments Pacemaker Check PPM Latitude Encounter Details Date Type Department Care Team Description 01/03/2017 Allied Health/Nurse [facility] Pac emaker Check (PPM Visit Heart Clinic [facility]) [address] [place] [address] [address] [place] [phone] Social History Tobacco Use Types Packs/Day Years Used Date Smoking Tobacco: Never Alcohol Use Standard Drinks/Week Comments No 0 (1 standard drink = 0.6 oz pure alcoho l) Sex Assigned at Date Recorded Not on file documented as of this encounter Progress Notes Rachel Freedman - 01/03/2017 11:45 AM CDT [employer] [facility] (D) Remote PPM Device Check AP: 2 % SUPERVISOR GARMENT MANUFACTURING: 14 % Mode: DDDR Presenting Rhythm: Aflutter/SUPERVISOR GARMENT MANUFACTURING Heart Rate: Adequate rates per histogram Sensing: [...] [address] [place], [place] [phone] (Wo rk) 09/28/2022 Lab Lab 09/28/2022 Office Visit Cardiology Timothy Smith MD [address] [place], [place] [phone] Trudi Grayson, FLACO BASIN CLEANER [address] [place] [address] 11/16/2022 Ancillary Procedure Cardiology Timothy Smith MD [address] [place] [address] (Wo rk) documented as of this encounter Procedures Procedure Name Priority Date/Time Associated Diagnosis Comme [facility] PM DEVICE Routine 01/03/2017 9:24 AM Cardiac pacemaker in INTERROGATE REMOTE, UP CDT situ TO 90 DAYS, LEAD/LEADLESS HC INTERR DEVICE EVAL Routine 01/03/2017 Cardiac pacemaker i n REMOTE, PM/LDLS PM/ICD, situ UP TO 90 DAYS documented in this encounter Results INTERROGATION DEVICE EVAL REMOTE, PACER/ICD (79109) (01/03/2017) Narrative This result has an attachment that is no t available. Timothy Smith MD PROCEDURES documented in this encounter Visit Diagnoses Diagnosis Cardiac pacemaker in situ - Primary documented in this encounter Care Teams Shell Mold Bonding Machine Operator Relationship Specialty Start Date End Date Nas Cardenas MD PCP - General Family Practice 02/01/12 04/12/17 documented as of this encounter
--- OUTSIDE RECORDS SUMMARY | 2022-08-22 06:59 | XMS_ITS | Encounter Summary ---
:1940 Author Organization [place] Address [address] [place] [address] Care Team Providers Name Role Phone Nas Cardenas MD Primary Care Provider Unavailable Reason for Visit Reason Onset Date Comments Formulary Issue 03/29/2016 Eliquis and NOACS in general are not covered by his insurance plan Encounter Details Date Type Department Care Team Description 03/29/2016 Telephone [facility] Heart Fabiola Hurtado orlary Issue Clinic [place] Bui RN, RN (Eliquis and NOACS in [address] [facility] HEART genera l are not covered [facility] [address] [facility] by his insurance plan) [place] [address] [address] [facility] [phone] [address] [place] [address] Social History Tobacco Use Types Packs/Day Years Used Date Smoking Tobacco: Never Alcohol Use Standard Drinks/Week Comments No 0 (1 standard drink = 0.6 oz pure alcoho l) Sex Assigned at Date Recorded Not on file documented as of this encounter Miscellaneous Notes Telephone Encounter - Fabiola Hurtado RN, RN - 03/29/2016 9:37 AM CDT [...] office. [facility] 1 month Rx for 5 mg warfarin sent to pharmacy. LSchaeppi documented in this encounter Plan of Treatment Upcoming Encounters Date Type Specialty Care Team Description 08/31/2022 Appointment Respiratory Therapy Timothy Smith MD [address] [place] [address] (Wo rk) 09/28/2022 Lab Lab 09/28/2022 Office Visit Cardiology Timothy Smith MD [address] [place] [address] Trudi Grayson APRN DYNAMO TENDER [address] [address] 11/16/2022 Ancillary Procedure Cardiology Timothy Smith MD [address] [place] [address] (Wo rk) documented as of this encounter Visit Diagnoses Diagnosis Typical atrial flutter (H) - Primary Atrial flutter documented in this encounter Care Teams Supervisor Shop Relationship Specialty Start Date End Date Nas Cardenas MD PCP - General Family Practice 02/01/12 04/12/17 documented as of this encounter
--- OUTSIDE RECORDS SUMMARY | 2022-08-22 06:59 | XMS_ITS | Encounter Summary ---
:1940 Author Organization [place] Address [address] [facility] [place] [address] Care Team Providers Name Role Phone Nas Cardenas MD Primary Care Provider Unavailable Reason for Visit Reason Onset Date Comments Results 01/15/2017 Holter Encounter Details Date Type Department Care Team Description 01/15/2017 Telephone [facility] Heart Fabiola Hurtado, Results (Holter) Clinic [place] RN, RN [address] [facility] [address] [facility] [place] [address] [address] [facility] [phone] [facility] [place] [address] (Wo rk) Social History Tobacco Use [...] [address] [place] [phone] (Wo rk) 09/28/2022 Lab Lab 09/28/2022 Office Visit Cardiology Timothy Smith MD [address] [place] [address] Trudi Grayson APRN AVIONICS SYSTEMS ENGINEER [address] [address] 11/16/2022 Ancillary Procedure Cardiology Timothy Smith MD [address] [place] [id number] (Wo rk) documented as of this encounter Visit Diagnoses Not on filedocumented in this encounter Care Teams Digital Editor Relationship Specialty Start Date End Date Nas Cardenas MD PCP - General Family Practice 02/01/12 04/12/17 documented as of this encounter
--- OUTSIDE RECORDS SUMMARY | 2022-08-22 06:59 | XMS_ITS | Encounter Summary ---
:1940 Author Organization [place] Address [address] [facility] [place] [address] Care Team Providers Name Role Phone Nas Cardenas MD Primary Care Provider Unavailable Reason for Visit (Routine) - Closed Specialty Diagnoses / Procedures Referred By Contact Refer red To Contact Cardiology Diagnoses Per Li, 24 hour holter, AFIB Zzrh Cardiac Test [facility] Procedures HOLTER MONITOR [address] [facility] [address] [place], [place] [address] Phone: Fax: Referral ID Status Reason Start Date Expiration Date Visits Requ ested Visits Authorized [id number] Closed 01/03/2017 01/03/2018 1 1 Encounter Details Date Type Department Care Team Description 01/04/2017 Hospital Encounter [place] [facility] Timothy Smith MD [facility] [address] fibrillation (H) [address] [place] [address] [place], [place] [phone] [address] (Work) [phone] Social History Tobacco Use Types Packs/Day Years [...] 08/31/2022 Appointment Respiratory Therapy Timothy Smith MD [address] [place] [address] (Wo rk) 09/28/2022 Lab Lab 09/28/2022 Office Visit Cardiology Timothy Smith MD [address] [place] [address] Trudi Grayson, SEAMAN OFFICER COMPANY MARKER [address] [place] [phone] 11/16/2022 Ancillary Procedure Cardiology Timothy Smith MD [address] [place] [id number] (Wo rk) documented as of this encounter Procedures Procedure Name Priority Date/Time Associated Diagnosis Comme nts HOLTER MONITOR 24 Routine 01/08/2017 Paroxysmal atrial Resul ts for this HOUR - ADULT fibrillation (H) procedure a re in the results section . documented in this encounter Results Holter Monitor 24 hour - Adult (01/08/2017) Narrative RADIANT - 01/08/[address] [address] 01/04/2017 Patient: ??Haris Bullard [facility] Chart: [id number] : ??1940 Age: ??76 year old Sex: ??male Procedure: ??Holter Monitor Placed: plea se see scanned document for result once interpretation is completed. Surface Logging Systems Logger performing hook-up: ??Sheri Yuen Timothy Smith MD CV CARDIAC SERVICES ORDERABL ES Performing Organization Address City/State/ZIP Code Phon e Number RADIANT documented in this encounter Visit Diagnoses Diagnosis Paroxysmal atrial fibrillation (H) Atrial fibrillation documented in this encounter Care Teams Ethologist Relationship Specialty Start Date End Date Nas Cardenas MD PCP - General Family Practice 02/01/12 04/12/17 documented as of this encounter
--- OUTSIDE RECORDS SUMMARY | 2022-08-22 07:00 | XMS_ITS | Encounter Summary ---
:1940 Author Organization [place] Address [address] [facility] [place] [address] Care Team Providers Name Role Phone Nas Cardenas MD Primary Care Provider Unavailable Reason for Referral - Closed Specialty Diagnoses / Procedures Referred By Contact Refer red To Contact Ankur Smith MD [address] [place] [id number] Referral ID Status Reason Start Date Expiration Date Visits Requ ested Visits Authorized [id number] Closed 12/10/2015 06/07/2016 1 1 Reason for Visit Reason Comments Annual Visit feeling well - ekg done Encounter Details Date Type Department Care Team Description 12/10/2014 Office Visit [facility] Ankur Smith MD Atrial flutter (H) [facility] [place] [address] (Primary Dx) [address] [place] [id number] [facility] [address] [place] [address] [place] [phone] Social History Tobacco Use Types Packs/Day Years [...] CDT December 10, 2014 Nas Cardenas MD Pending Sale To [facility] [address] [place] [address] RE: Radha Villa : [address] [...] right eye melanoma. He got treatment at [facility] and has had some impaired [...] MD MT: MANDIE Name: RADHA VILLA Account: [id number] : 1940 Service Date: 12/10/2014 Document: [id number] Ankur Smith MD - 12/10/2014 2:26 PM [...] Respiratory Therapy Ankur Smith MD [address] [place] [address] (Wo rk) 09/28/2022 Lab Lab 09/28/2022 Office Visit Cardiology Ankur Smith MD [address] [place] [address] Trudi Grayson APRN UPSTREAM BIOMANUFACTURING TECHNICIAN [address] [place] [id number] 11/16/2022 Ancillary Procedure Cardiology Ankur Smith MD [address] [place] [address] (Wo rk) Scheduled Referrals Name Type Priority Associated Diagnoses Order S chedule Follow-Up with Referral Routine Atrial Flutter (H) Expecte d: Comber Fixer 12/10/19 16 (Approximate), Expires: 04/23/2016 documented as [...] flutter documented in this encounter Care Teams Sales Representative Gas Service Relationship Specialty Start Date End Date Nas Cardenas MD PCP - General Family Practice 02/01/12 04/12/17 documented as of this encounter
--- OUTSIDE RECORDS SUMMARY | 2022-08-22 07:00 | XMS_ITS | Encounter Summary ---
:1940 Author Organization [place] Address [address] [place] [address] Care Team Providers Name Role Phone Nas Cardenas MD Primary Care Provider Unavailable Encounter Details Date Type Department Care Team Description 01/15/2013 Historic Results [facility] Heart Unknown, Doct or, Clinic [place] [id number] [facility] [address] [place] [phone] Social History Tobacco Use Types Packs/Day Years [...] [address] [place] [id number] (Wo rk) 09/28/2022 Lab Lab 09/28/2022 Office Visit Cardiology Timothy Smith MD [address] [place] [phone] Trudi Grayson APRN HOME STAGER [address] [place] [id number] 11/16/2022 Ancillary Procedure Cardiology Timothy Smith MD [address] [place] [id number] (Wo rk) documented as of this encounter Procedures Procedure Name Priority Date/Time Associated Comments Diagnosis GEMPR HISTORICAL Routine 01/15/2013 12:00 AM Resu lts for this RESULTS CDT procedure are i n the results section. documented in this encounter Results [facility] Historical Results (01/15/2013 12:00 AM CDT) P athologist Signature INR 2.9 [facility] HISTORICAL RESULTS Specimen (Source) Anatomical Location Collection Method / Collectio n Time Received Time / Laterality Volume 01/15/2013 01/15/2013 Doctor Unknown MD LABORATORY Performing Organization Address City/State/ZIP Code Phon e Number G[facility] HISTORICAL RESULTS documented in this encounter Visit Diagnoses Not on filedocumented in this encounter Care Teams Fender Mechanic Apprentice Relationship Specialty Start Date End Date Nas Cardenas MD PCP - General Family Practice 02/01/12 04/12/17 documented as of this encounter
--- OUTSIDE RECORDS SUMMARY | 2022-08-22 07:00 | XMS_ITS | Encounter Summary ---
:1940 Author Organization [place] Address [address] [place] [address] Care Team Providers Name Role Phone Nas Cardenas MD Primary Care Provider Unavailable Encounter Details Date Type Department Care Team Description 02/27/2013 Historic Results [facility] Unknown, [facility] [address] [facility] [address] [place] [phone] Social History Tobacco Use Types Packs/Day Years Used Date Smoking Tobacco: Never Alcohol Use Standard Drinks/Week Comments Yes 0 (1 standard drink = 0.6 oz pure alcoho l) Sex Assigned at Date Recorded Not on file documented as of this encounter Plan of Treatment Upcoming Encounters Date Type Specialty Care Team Description 08/31/2022 Appointment Respiratory Therapy Timothy Smith MD [address] [place] [id number] (Wo rk) 09/28/2022 Lab Lab 09/28/2022 Office Visit Cardiology Timothy Smith MD [address] [place] [phone] Trudi Grayson APRN CNP [address] [id number] 11/16/2022 Ancillary Procedure Cardiology Timothy Smith MD [address] [place] [id number] (Wo rk) documented as of this encounter [...] on filedocumented in this encounter Care Teams News Copy Editor Relationship Specialty Start Date End Date Nas Cardenas MD PCP - General Family Practice 02/01/12 04/12/17 documented as of this encounter
--- OUTSIDE RECORDS SUMMARY | 2022-08-22 07:00 | XMS_ITS | Encounter Summary ---
:1940 Author Organization [place] Address [address] [facility] [place] [address] Care Team Providers Name Role Phone Herminia Coleman MD Primary Care Provider Unavailable Graham Licona MD Primary Care Provider [facility] Primary Care Provider [phone] Slava Hernandez PA-C Primary Care Provider Timothy Smith MD Unavailable Graham Licona MD Primary Care Provider Encounter Details Date Type Department Care Team Description 09/12/2013 Office Visit-[facility] Carmen Montenegro [facility] Patt Torres PA-C [address] [facility] [address] [place] [address] [place] [phone] [phone] Social History Tobacco Use Types Packs/Day Years [...] old Referring Physician: HERMINIA COLEMAN Referring Clinic[facility] CURRENT DIAGNOSES 1. - Hyperlipidemia, 272.4 [...] 2013. He saw Dr. Smith, his primary clinical trials data coordinator, in May, at which time he was [...] walking in a big store, such as [employer]. He does workout at [employer] three times weekly and states he has [...] Occupation - retired; Residence - lives in [place] year round; REVIEW OF SYSTEMS GENERAL See [...] tablet, 1 p.o. twice daily, #180 (One Trufant Eighty) MEDICATIONS STOPPED TODAY: losartan 25 mg [...] MD [address] [place] [address] (Fiorella olvera) 09/28/2022 Lab Lab 09/28/2022 Office Visit Cardiology Timothy Smith MD [address] [place] [address] Trudi Grayson APRN ENVIRONMENTAL PLANNING ENGINEER [address] [place] [address] 11/16/2022 Ancillary Procedure Cardiology Timothy Smith MD [address] [place] [id number] (Fiorella olvera) documented as of this encounter Visit Diagnoses Not on filedocumented in this encounter Care Teams Medical Practitioners Relationship Specialty Start Date End Date Herminia Coleman, PCP - General Family Practice 02/01/1203/31 Graham Moon MD PCP - General Family Practice 04/13/17 01/15/18 [facility] [address] [place] [address] Vinny Reinoso PCP - General 01/16/18 07/01/[address] [place] [id number] [place] [phone] Slava Hernandez, PCP - General Physician Sanding Machine Tender Automatic 07/02/1806/02 PA-C [facility] [address] [place] [address] Graham Licona MD PCP - General Family Medicine 06/30/21 [facility] [address] [place] [address] Timothy Smith MD Assigned Heart and 07/23/20 [address] Vascular Provider W[place]Cally [place] [address] documented as of this encounter
--- OUTSIDE RECORDS SUMMARY | 2022-08-22 07:00 | XMS_ITS | Encounter Summary ---
:1940 Author Organization [place] Address [address] [place] [address] Care Team Providers Name Role Phone Herminia Coleman MD Primary Care Provider Unavailable Graham Licona MD Primary Care Provider [facility] Primary Care Provider [phone] Slava Hernandez PA-C Primary Care Provider Timothy Smith MD Unavailable Graham Licona MD Primary Care Provider Encounter Details Date Type Department Care Team Description 05/23/2013 Office Visit-[facility] Heart Rafael Smith MD [facility] [address] [facility] [address] [place] [address] [place] [phone] Social History Tobacco Use Types Packs/Day Years [...] Physician: HERMINIA COLEMAN Referring Clinic: [facility] CURRENT DIAGNOSES 1. - Hyperlipidemia, 272.4 2. - Hypertension, 401.1 3. LA-Recent Unspecified, 410.91 4. - CAD, 414.00 5. [...] hr, 1 p.o. twice daily, #180 (One Shawnee Eighty) MEDICATIONS REFILLED/STOPPED TODAY: metoprolol succinate 50 [...] MD [address] [place] [phone] (Wo wade) 09/28/2022 Lab Lab 09/28/2022 Office Visit Cardiology Timothy Smith MD [address] [place] [address] Trudi Grayson APRN LINEN WORKER [address] [place] [address] [address] 11/16/2022 Ancillary Procedure Cardiology Timothy Smith MD [address] [place] [phone] (Wo wade) documented as of this encounter Visit Diagnoses Not on filedocumented in this encounter Care Teams Firer Low Pressure Relationship Specialty Start Date End Date Herminia Coleman, PCP - General Family Practice 02/01/1203/31 Graham Moon MD PCP - General Family Practice 04/13/17 01/15/18 [facility] [address] [place] [address] Vinny Reinoso PCP - General 01/16/18 07/01/18 [place] [address] [place] [phone] Slava Hernandez, PCP - General Physician Board Mixer Tender 07/02/1806/02 PA-C [facility] [address] [place] [address] Graham Licona MD PCP - General Family Medicine 06/30/21 [facility] [address] [place] [address] Timothy Smith MD Assigned Heart and 07/23/20 [address] Vascular Provider [address] [place] [address] documented as of this encounter
--- OUTSIDE RECORDS SUMMARY | 2022-08-22 07:00 | XMS_ITS | Encounter Summary ---
:1940 Author Organization [facility] Address [address] [place] [address] Care Team Providers Name Role Phone Herminia Coleman MD Primary Care Provider Unavailable Reason for Referral - Closed Specialty Diagnoses / Procedures Referred By Contact Refer red To Contact Diagnoses Sinoatrial node dysfunction (H) Ankur Smith MD [address] [place] [address] Referral ID Status Reason Start Date Expiration Date Visits Requ ested Visits Authorized [id number] Closed 03/06/2016 03/06/2017 1 1 Reason for Visit Auth/Cert Specialty Diagnoses / Procedures Referred By Contact Refer red To Contact Coronary Intensive Diagnoses Chest Pain / Unstable Angina ACS (acute coronary syndrome) (HCC) Coronary Care Care Unit [address] 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 He was admitted to [facility] where he was seen by Cardiology and underwent angiography the following day. This showed chronically occluded venetie vessels with patent saphenous vein grafts as [...] discharge. 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 CODE STATUS: Full code. TOTAL DISCHARGE TIME: Greater than 30 minutes. MAYNOR JOYCE DO MT: [id number] Name: RADHA FAROOQ Account: [id number] : 1940 Admit Date: Discharge Date: 02/04/2016 Document: [id number] cc: Ankur Coleman MD documented in this encounter Discharge Instructions Discharge InstructionsMaynor Joyce DO - 02/04/2016 9:52 AM CDT Ok to restart metformin on 02/05 AttachmentsThe following attachments cannot be sent through Care Everywhere. 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 May be discharged around 5-6PM today. iWlli Colmenares MD - 02/04/2016 1:47 PM CDT [facility] Cardiology Progress Note Date of Service (when [...] Rx and rhythm management. Willi Colmenares MD [facility] Interval History S: Doing well; no [...] lab at 1300. Report given to SIENNA Kmep. Harrison Rodriguez RN - 02/04/2016 11:37 AM [...] Joyce DO - 02/04/2016 9:17 AM CDT [facility] Hospitalist Progress Note Maynor Joyce D.Jenae Date of service (Date I saw patient): 02/04/2016 Assessment and Plan Radha Farooq is a 75 year old male who was directly admitted from [facility] on 02/02/16 for evaluation of epigastric discomfort, chest pain and elevated troponin concerning for NSTEMI in the setting of known CAD. CAD with 4 vessel bypass 1987 with NSTEMI: Initially presented in [place] with epigastric discomfort and found to have elevated troponin. Troponin stable around 0.4. Angiogram 02/02 showed occluded LMand RCA, patent to LAD, Diagonal, OM and PDA. - cards recommends medical management - Continue [employer]OR OF SALES [employer] MARK[employer] ASA, lisinopril, and simvastatin - metoprolol on hold as of 02/02 given five second pause - Appreciate Cardiology assistance. Five second sinus pause: noted on tele evening of 02/02. On toprol XL 50 mg daily [employer]. -metoprolol dc 02/02 -EP consult pending GERD: [...] A1C 9.0 (7.9 in 10/16 per CareEverywhere) [employer] regimen Metformin 1000 mg/d and Glipizide 5 [...] Herman PA-C - 02/03/2016 9:58 AM CDT [facility] Hospitalist Progress Note Date of Service (when I saw the patient): 02/03/2016 Assessment and Plan Radha Farooq is a 75 year old male who was directly admitted from [facility] on 02/02/16 for evaluation of epigastric discomfort, chest pain and elevated troponin concerning for NSTEMI in the setting of known CAD. 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 CXR RESULTS ARE NOT AVAILABLE FROM [facility] AND NEED TO BE REVIEWED-PENDING. Addendum: CXR results received from [facility] radiology. Radiology read- no acute abnormality. documented [...] approximately 0.3. He was then transferred to [facility] for further evaluation. Prior to transfer, thepatient [...] status post treatment at the [facility]. 6. Metabolic syndrome. 7. Diabetes mellitus [...] 98.5 degrees, pulse 83, respiratory rate 20, [id number]% on room air. GENERAL: This is a [...] MT: Name: RADHA FAROOQ MRN: [id number] Account: [id number] : 1940 Admitted: [id number] Document: [id number] cc: Herminia Coleman MD documented in this [...] sent for coronary angiography that showed occluded venetie RCA, but the bypass graft was patent. [...] EM#[id number] Name: RADHA FAROOQ MRN: [id number] Account: [id number] : 1940 Consult Date: 02/04/2016 Document: [id number] cc: Maynor Joyce DO Siddharth Singleton DO - 02/03/2016 9:27 AM CDT CARDIOLOGY CONSULTATION DATE OF SERVICE: 02/03/2016. REQUESTING PHYSICIAN: Blane Pina MD. REASON FOR REFERRAL: Chest pain and elevated cardiac enzymes. HISTORY OF PRESENT ILLNESS: I have been asked to evaluate Radha Farooq, a very pleasant 75-year-old male for the above. He was initially seen at [facility] emergency room for the above symptoms and [...] described as anginal. Mr. Farooq presented to [facility] after experiencing what he thought was acid reflux. He had had some pressure or fullness in the epigastric area. He found some partial relief with belching and he has had some partial relief with baking soda and water. He has not attempted to take sublingual nitroglycerin for his symptoms. At [facility] he was noted to have elevated cardiac enzymes; therefore, he was transferred here for further care and evaluation. I did review the electrocardiogram from his admission which demonstrates a sinus rhythm with a prolonged MT interval. There is no acute STor T-wave abnormalities seen on the EKG. His initial troponin at [facility] was 0.26. He presented with continued chest pain at [facility] and was admitted. His troponin measurements co [...] His initial blood pressure upon arriving at [facility] demonstrated a blood pressure systolic of 111. [...] was reduced recently because of the prolonged MT interval. We are happy to follow along in his care. Please feel free to contact me with any questions you havein regard to his care. SIDDHARTH SINGLETON DO MT: caprice Name: RADHA FAROOQ Account: [id number] : 1940 Consult Date: 02/03/2016 Document: [id number] documented in this encounter Miscellaneous Notes Plan [...] Persons Name: Dr. Joyce Notification Date/Time: 02/04/16 144 Notification Interaction: Text paged Physician Purpose of [...] MD aware Plan of Care - Nieves Garnado RN - 02/03/2016 1:42 PM CDT Problem: [...] voiding in urinal. 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 No pneumothorax is seen. LYANE HUERTAS MD Narrative 02/04/2016 8:01 PM CDT [...] 3:45 CDT PM CDT Blane Pina MD [facility] POCT Performing Organization Address City/State/ZIP Code Phon e Number FV POINT OF CARE TEST, GLUCOSE POINT OF CARE TEST, GLUCOSE Echocardiogram Complete (02/04/2016 3:25 PM CDT) Anatomical Region Laterality Modality Echocardiography Specimen (Source) Anatomical Collection Method Collection Time Re ceived Time Location / / Volume Laterality 02/04/2016 1:04 PM CDT Narrative 02/04/2016 4:07 PM CDT Interpretation Summary ?Version 2 [facility] Echocardiography Laboratory [address] [place] [address] Name: RADHA FAROOQ : 1940 Study Date: 02/04/2016 01:04 PM Age: 75 yrs Gender: Male Patient Location: [facility] Reason For Study: Chest Pain Ordering [...] MD - 016 Interpretation Summary Version 2 [facility] Echocardiography Laboratory [address] [place] [address] Name: RADHA FAROOQ : 1940 Study Date: 02/04/2016 01:04 PM Age: 75 yrs Gender: Male Patient Location: [facility] Reason For Study: Chest Pain Ordering [...] 12-lead, tracing only (02/04/2016 2:55 PM CDT) [facility] gist Method Time Signature Interpretation ECG [...] was no complication. PACEMAKER INFORMATION: Pulse generator: [employer] E[address]EN [address] Model L121, SN [id number]. Atrial lead: [employer] Model 2088TC, SR C [id number]. P-wave 2.7 millivolts. Atrial pacing thr eshold .8 volts. Atrial pace impedence 513 ohms. Ventricular lead: [employer] Model 2088TC, SR [id number]. R-wave 20 millivolts. Ventricular pacing threshold .8 [...] was no complication. PACEMAKER INFORMATION: Pulse generator: [employer] E[address] Model L121, [place] [id number]. Atrial lead: [employer] Model 2088TC, SR C [id number]. P-wave 2.7 millivolts. Atrial pacing thr eshold .8 volts. Atrial pace impedence 513 ohms. Ventricular lead: [employer] Model 2088TC, SR [id number]. R-wave 20 millivolts. Ventricular pacing threshold .8 [...] athologist Signature INR 1.00 0.86 - 1.14 [facility] Specimen Anatomical Collection Method Collection Time Receive d Time (Source) Location / / Volume Laterality Blood specimen 02/04/2016 12:03 6 (specimen) PM CDT 12:13 PM CDT Ankur Smith MD LAB - BLOOD ORDERABLES Performing Organization Address City/State/ZIP Code Phon e Number [facility] [address] [place] [address] [facility] [address] [place] [address], [place] [phone] (ABNORMAL) HCG qualitative (02/04/2016 12:03 PM CDT) [facility] gist Method Time Signature HCG Qualitative Canceled, Test credited NEG [place] Serum Incorrectly ordered by PCU/Clinic [facility] (A) [facility] Specimen Anatomical Collection Method Collection Time Receive d Time (Source) Location / / Volume Laterality Blood specimen 02/04/2016 12:03 6 (specimen) PM CDT 12:13 PM CDT Ankur Smith MD LAB - BLOOD ORDERABLES Performing Organization Address City/State/ZIP Code Phon e Number M [facility] [address] [place] [address] [facility] [address] [place] [address], [place] [phone] CBC with platelets (02/04/2016 12:03 PM CDT) athologist Signature WBC 6.4 4.0 - 11.0 [place] 10e9/L [facility] RBC Count 4.80 4.4 - 5.9 [place] 10e12/L [facility] Hemoglobin 15.8 13.3 - [place] 17.7 g/dL [facility] Hematocrit 46.8 40.0 - [place] 53.0 % [facility] MCV 98 78 - 100 [place] fl [facility] MCH 32.9 26.5 - [place] 33.0 pg [facility] MCHC 33.8 31.5 - [place] 36.5 g/dL [facility] RDW 13.6 10.0 - [place] 15.0 % [facility] Platelet Count 206 150 - 450 [place] 10e9/L [facility] Specimen Anatomical Collection Method Collection Time Receive d Time (Source) Location / / Volume Laterality Blood specimen 02/04/2016 12:03 6 (specimen) PM CDT 12:13 PM CDT Ankur Smith MD LAB - BLOOD ORDERABLES Performing Organization Address City/State/ZIP Code Phon e Number M [facility] [address] [place], [place] [address] [phone] [facility] [address] [place] [address], [facility] [phone] (ABNORMAL) Glucose by meter (02/04/2016 11:57 AM CDT) P athologist Signature Glucose 203 (H) 70 - 99 POINT OF CARE mg/dL TEST, GLUCOSE Specimen Anatomical Collection Method Collection Time Receive d Time (Source) Location / / Volume Laterality 02/04/2016 11:57 02/04/2016 AM CDT 12:00 PM CDT Blane Pina MD LAB - [...] CDT Blane NICKERSON POCT Performing Organization Address [facility] Phon e Number [...] CDT Blane NICKERSON POCT Performing Organization Address [facility] Phon e Number [...] CDT Blane NICKERSON POCT Performing Organization Address [facility] Phon e Number [...] Impressions 02/03/2016 4:30 PM CDT IMPRESSION: Occluded venetie coronary arteries. Patent bypass ??grafts. PLAN: Medical [...] sterile fashion. Under 1% Lidocaine a 4 Rwandan sheath was placed in the right femoral artery using a modifie d Seldinger technique. Coronary angiography was performed with a 4 Rwandan JL 4.5 and 3 DRC, multipurpose catheter diagnostic cathete rs. Standard angle and views were used for the right and left coronar ies. ??Wave wire was performed to the RCA graft. This was negative. ??A ortogram was done to look for RCA venetie artery. FINDINGS: See below LEFT MAIN CORONARY [...] sterile fashion. Under 1% Lidocaine a 4 Rwandan sheath was placed in the right femoral artery using a modifie d Seldinger technique. Coronary angiography was performed with a 4 Rwandan JL 4.5 and 3 DRC, multipurpose catheter diagnostic cathete rs. Standard angle and views were used for the right and left coronar ies. Wave wire was performed to the RCA graft. This was negative. Aor togram was done to look for RCA venetie artery. FINDINGS: See below LEFT MAIN CORONARY [...] widely patent . FFR negative. IMPRESSION: Occluded venetie coronary art eries. Patent bypass grafts. PLAN: [...] Heparin 10a Level (02/03/2016 12:05 PM CDT) P athologist Signature Heparin 10A 0.29 IU/mL Cass [...] LAB - BLOOD ORDERABLES Performing Organization Address [facility] Phon e Number M [facility] [address] [place] [address] [facility] [address] [place] [address], U [phone] (ABNORMAL) Glucose by meter (02/03/2016 12:04 PM CDT) P athologist Signature Glucose 157 (H) 70 - 99 POINT OF CARE mg/dL TEST, GLUCOSE Specimen Anatomical Collection Method Collection Time Receive d Time (Source) Location / / Volume Laterality 02/03/2016 12:04 02/03/2016 PM CDT 12:11 PM CDT Blane [facility] - BEJOHN PAUL POCT Performing Organization Address [facility] Phon e Number [...] 7:21 CDT AM CDT Blane [place] - LIYA POCT Performing Organization Address City/State/ZIP Code Phon e Number FV POINT OF CARE TEST, GLUCOSE POINT OF CARE TEST, GLUCOSE (ABNORMAL) Troponin I (02/03/2016 4:50 AM CDT) Analysis Performed At [facility] logist Time Signature Troponin I ES 0.395 () 0.000 - [place] 0.045 ug/L [facility] Comment: The 99th percentile for upper [...] Address City/State/ZIP Code Phon e Number M [facility] [address] [place] [place] [address] [phone] [facility] [address] [address], [facility] [phone] Heparin Xa (10a) Level (02/03/2016 4:50 AM CDT) [facility] gist Method Time Signature Heparin 10A <0.10 IU/mL [place] Level Therapeutic Range: [place] ?? UFH: ?? 0.15-0.35 [...] Address City/State/ZIP Code Phon e Number M [facility] [address] [address] [facility] [address] [place] [address], [place] [phone] (ABNORMAL) Basic metabolic panel (02/03/2016 4:50 AM CDT) athologist Signature Sodium 138 133 - 144 [place] mmol/L [facility] Potassium 4.1 3.4 - 5.3 [place] mmol/L [facility] Chloride 103 94 - 109 [place] mmol/L [facility] Carbon Dioxide 26 20 - 32 [place] mmol/L [facility] Anion Gap 9 3 - 14 [place] mmol/L [facility] Glucose 167 (H) 70 - 99 [place] mg/dL [facility] Urea Nitrogen 27 7 - 30 [place] mg/dL [facility] Creatinine 1.02 0.66 - [place] 1.25 mg/dL [facility] GFR Estimate 71 >60 [place] mL/min/1.[address] Comment: Non GFR Calc GFR Estimate If Black 86 >60 mL/min/1.7m2 F [facility] Comment: GFR Calc Calcium 8.4 (L) 8.5 - 10.1 mg/dL [facility] Specimen Anatomical Collection Method Collection Time Receive d Time (Source) Location / / Volume Laterality Blood specimen 02/03/2016 4:50 AM 016 5:01 (specimen) CDT AM CDT Blane Pina MD LAB - BLOOD ORDERABLES Performing Organization Address City/State/ZIP Code Phon e Number M [facility] [address] [place] [address] [facility] [address] [place] [address], [place] [phone] (ABNORMAL) Hemoglobin A1c (02/03/2016 4:50 AM CDT) athologist Signature Hemoglobin A1C 9.0 (H) 4.3 - 6.0 [facility] Specimen Anatomical Collection Method Collection Time Receive d Time (Source) Location / / Volume Laterality Blood specimen 02/03/2016 4:50 AM 016 5:01 (specimen) CDT AM CDT Blane Pina MD LAB - BLOOD ORDERABLES Performing Organization Address City/State/ZIP Code Phon e Number [facility] [address] [place] [address] [facility] [address] [place] [address], [place] [phone] (ABNORMAL) Lipid panel reflex to direct LDL (02/03/2016 4:50 AM CDT) P athologist Signature Cholesterol 155 <200 mg/dL [facility] Triglycerides 190 (H) <150 mg/dL [facility] Comment: Borderline high: ??150-199 mg/dl High: ? 200-499 mg/dl Very high: ? >499 mg/dl HDL Cholesterol 31 (L) >39 mg/dL [facility] LDL Cholesterol Calculated 86 <100 mg/dL [facility] Comment: Desirable: <100 mg/dl Non HDL Cholesterol 124 <130 mg/dL [facility] Specimen Anatomical Collection Method Collection Time Receive d Time (Source) Location / / Volume Laterality Blood specimen 02/03/2016 4:50 AM 016 5:01 (specimen) CDT AM CDT Blane Pina MD LAB - BLOOD ORDERABLES Performing Organization Address City/State/ZIP Code Phon e Number [facility] [address] [place] [address] [facility] [address] [place] [address], [place] [phone] (ABNORMAL) Troponin I - Now then in 4 hours x 3 (02/03/2016 1:40 AM CDT) Analysis Performed At Patho logist Time Signature Troponin I ES 0.441 (HH) 0.000 - [place] 0.045 ug/L [facility] Comment: The 99th percentile for upper [...] Address City/State/ZIP Code Phon e Number M [facility] [address] [address] [phone] [facility] [address] [address], [place] [phone] (ABNORMAL) Troponin I - Now then in 4 hours x 3 (02/02/2016 9:40 PM CDT) Analysis Performed At Patho logist Time Signature Troponin I ES 0.407 () 0.000 [facility] 0.045 ug/L [facility] Comment: The 99th percentile for upper [...] Address City/State/ZIP Code Phon e Number [facility] [address] [address] [facility] [address] [address], [place] [phone] CBC with platelets (02/02/2016 9:40 PM CDT) athologist Signature WBC 10.3 4.0 - 11.0 [place] 10e9/L [facility] RBC Count 4.63 4.4 - 5.9 [place] 10e12/L [facility] Hemoglobin 15.2 13.3 - [place] 17.7 g/dL [facility] Hematocrit 45.0 40.0 - [place] 53.0 % [facility] MCV 97 78 - 100 [place] fl [facility] MCH 32.8 26.5 - [place] 33.0 pg [facility] MCHC 33.8 31.5 - [place] 36.5 g/dL [facility] RDW 13.6 10.0 - [place] 15.0 % [facility] Platelet Count 196 150 - 450 [place] 10e9/L [facility] Specimen Anatomical Collection Method Collection Time Receive d Time (Source) Location / / Volume Laterality Blood specimen 02/02/2016 9:40 PM 016 9:47 (specimen) CDT PM CDT Blane Pina MD LAB - BLOOD ORDERABLES Performing Organization Address City/State/ZIP Code Phon e Number [facility] [address] [address] [facility] [address] [place] [address], [facility] [phone] (ABNORMAL) Glucose by meter (02/02/2016 9:12 PM [...] Atrial flutter, unspecified 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 Monitor platelets every three days while [...] 50 mg, Oral, DAILY, First dose on Ana 02/03/16 at 0900, DO NOT CRUSH. Tablet may [...] mg (CANCELED) 0759 (Given - Provider: Anel Patterson, RN)0800 (Canceled Entry - Provider: Anel Patterson RN) 81 mg, Oral, DAILY, First dose on 03/16 at 0900, DO NOT CRUSH., Cardiac Post-procedure aspirin tablet 325 mg (CANCELED) 0935 (Given - P rovider: Nieves Granado, SIENNA) 325 mg, Oral, DAILY, First dose on Ana 02/03/16 at 0900 ceFAZolin (ANCEF) intermittent infusion 3 g (pre-mix) (COMPLETED ) 1300 (Given - Provider: Anel Patterson, RN) Routine, 3 g, Intravenous, PRE-OP/PRE-MT OCEDURE, Starting on Sun02/04/16 at 1148, For [...] Granado, SIENNA) 0759 (Given - Provider: Den Rose N)0900 (Canceled Entry - Provider: Anel Patterson RN) 160 mg, Oral, DAILY, First dose on Ana 02/03/16 at 0900 heparin Loading Dose bolus dose from infusion pump 5,000 Uni ts (COMPLETED) 0545 (Given - Provider: Catherine Mak, RN) 5,000 Units, Intravenous, ONCE, On Ana at 0545, For 1 dose, Nurse to [...] met) 0757 (Given - Provider: Anel Patterson, SIENNA)1356 (Not Given - Provider: Anel Patterson RN [...] (CANCELED) 2112 (Not Given - Provider: Sintia Ahuja, SIENNA - Reason: Order parameters not met) 2117 [...] Units (CANCELED) 2116 (Given - Provider: Sintia Ahuja, SIENNA) 7 Units, Subcutaneous, AT BEDTIME, First dose [...] mg (CANCELED) 0856 (Given - Provider: Nieves Granado, SIENNA) 40 mg, Oral, EVERY MORNING BEFORE BREAKFAST, First dose on Sun at 0730 pravastatin (PRAVACHOL) tablet 80 mg (CANCELED) 2156 ( Given - Provider: Sintia Ahuja RN) 2118 (Given - Provider: Sintia Ahuja RN) 80 [...] (CANCELED) 1211 (Not Given - Provider: Nieves Granado, SIENNA - Reason: NPO)1818 (Given - Provider: Sintia [...] (CANCELED) 0935 (New Bag - Provider: Nieves Granado, SIENNA) at 150 mL/hr, Intravenous, CONTINUOUS, 1 50 mL/hr IV for 2 hours prior to cardiac laborer steel handling procedure, then decrease to 75 mL/hr to [...] RN) at 75 mL/hr, Intravenous, CONTINUOUS, Ad kiln packer over 4 Hours, or until patient is [...] NCELED) 2127 (New Bag - Provider: Sintia Ahuja, SIENNA) [...] recheck in am 5/6 Heparin dosed per [facility] P 1525 (S topped - Provider: Paulina Steward RN) rotocol. Monitor platelets every three days while on anticoagula tion therapy. nitroglycerin 50 mg in D5W 250 mL (adult std) infusion (CANCELED) 2123 (New Bag - Provider: Sintia Ahuja RN) 0004 (Rate/Dose Verify - Provider: Nicole Mak RN)0546 (Rate/Dose Change - Provider: Catherine Mak, SIENNA)0804 (Rate/Dose Change - Provider: Nieves Granado, SIENNA)0858 (Rate/Dose Change - Prov ider: Nieves Granado [...] mg (CANCELED) 1902 (Given - Provider: Sintia Ahuja, SIENNA) 325-650 [...] (Given by Other - Provider: Cass Amor, RN)1335 (Given by Other - Provider: Cass Amor, RN) 25-75 mg (10-30 mL), Intradermal, ONCE P RN, for implants; for local anesthesia as verbally ordered by prescriber during procedure., Starting on Sun02/04/16 at 1310, For 1 dose, The provider administers t he medication. Dose may be int o smaller doses for administration., Cardiac Intra-procedure FentaNYL Citrate (PF) (SUBLIMAZE) injection 25-50 mcg (CANCE LED) 1526 (Given - Provider: Lazaro Crenshaw, RN)1551 (Given - Provider: Lazaro Crenshaw, RN)1613 (Given [...] (CANCELED) 1604 (Given - Provider: Lazaro Crenshaw, SIENNA) 1,000-10,000 Units, Intravenous, EVERY 5 MIN PRN, [...] procedure., Starting on Ana 02/03/16 at 1544, For 1 dose, The provider [...] Amor, RN)1325 (Given - Provider: Cass Amor, SIENNA) [...] Post-procedure documented in this encounter Care Teams Signals Intelligence Analysis Manager Relationship Specialty Start Date End Date Herminia Coleman MD PCP - General Family Practice 02/01/12 04/12/17 documented as of this encounter
--- OUTSIDE RECORDS SUMMARY | 2022-08-22 07:00 | XMS_ITS | Encounter Summary ---
:1940 Author Organization [place] Address [address] [facility] [place] [address] Care Team Providers Name Role Phone Nas Cardenas MD Primary Care Provider Unavailable Encounter Details Date Type Department Care Team Description 02/25/2013 Orders Only [facility] Guera Yap, Atrial flutter (H) [facility] RN (Primary Dx) Heart Care [address] [phone] Social History Tobacco Use Types Packs/Day Years [...] MD [address] [place] [phone] (Wo rk) 09/28/2022 Lab Lab 09/28/2022 Office Visit Cardiology Timothy Smith MD [address] [place] [phone] Trudi Grayson APRN TOY DEPARTMENT MANAGER [address] [id number] 11/16/2022 Ancillary Procedure Cardiology Timothy Smith MD [address] [place] [address] (Wo rk) documented as of this encounter Visit Diagnoses Diagnosis Atrial flutter (H) - Primary Atrial flutter documented in this encounter Care Teams Floriculture Teacher Relationship Specialty Start Date End Date Nas Cardenas MD PCP - General Family Practice 02/01/12 04/12/17 documented as of this encounter
--- OUTSIDE RECORDS SUMMARY | 2022-08-22 07:00 | XMS_ITS | Encounter Summary ---
:1940 Author Organization [place] Address [address] [place] [address] Care Team Providers Name Role Phone Nas Cardenas MD Primary Care Provider Unavailable Encounter Details Date Type Department Care Team Description 02/27/2013 Hospital Encounter [facility] Timothy Smith MD Atrial flutter (H) [facility] [address] (Primary D x) [address] [place] [address] [place] [phone] Social History Tobacco Use Types Packs/Day Years [...] encounter Discharge Instructions Discharge InstructionsEric Ann Marie Mod[place] RN - 02/27/2013 5:26 PM CDT 1. See an EP EXECUTIVE CYBER LEADER in 1 month, with ECG 2. See [...] beats should occur less often. Questions? Call [facility] Physician Heart at [phone]. 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 documented in this encounter H&P Notes Timothy Smith MD - 02/26/2013 2:35 PM CDT documented in this encounter Plan of Treatment Upcoming Encounters Date Type Specialty Care Team Description 08/31/2022 Appointment Respiratory Therapy Timothy Smith MD [address] [place] [address] (Wo rk) 09/28/2022 Lab Lab 09/28/2022 Office Visit Cardiology Timothy Smith MD [address] [place] [address] Trudi Grayson APRN ADULT LITERACY INSTRUCTOR [address] [address] 11/16/2022 Ancillary Procedure Cardiology Timothy Smith MD [address] [place] [address] (Wo rk) documented as of this encounter [...] 12-lead, tracing only (02/27/2013 2:47 PM CDT) [facility] Method Time Signature Interpretation ECG Click View RADIOLOGY Image link RESULTS to view waveform and result Specimen (Source) Anatomical Collection Method Collection Time Re ceived Time Location / / Volume Laterality 02/27/2013 2:47 PM CDT Timothy Smith MD ECG ORDERABLES Performing Organization Address City/[facility]/ZIP Code Phon e Number RADIOLOGY RESULTS ATRIAL FLUTTER REPORT - HIM Imaging Scan (02/27/2013 2:16 PM CDT) Anatomical Region Laterality Modality Other Narrative This result has an attachment that is no t available. Timothy Smith MD IMG DIAGNOSTIC IMAGING ORDER ANN EKG 12-lead, tracing only (02/27/2013 12:40 PM CDT) [facility] Method Time Signature Interpretation ECG Click View RADIOLOGY Image link RESULTS to view waveform and result Specimen (Source) Anatomical Collection Method Collection Time Re ceived Time Location / / Volume Laterality 02/27/2013 12:40 PM CDT Timothy Smith MD ECG ORDERABLES Performing Organization Address City/[facility]/ZIP [facility] Phon e Number RADIOLOGY RESULTS (ABNORMAL) INR (02/27/2013 11:45 AM CDT) P athologist Signature INR 2.66 (H) 0.86 - 1.14 [facility] Specimen Anatomical Collection Method Collection Time Receive d Time (Source) Location / / Volume Laterality Blood specimen 02/27/2013 11:45 3 (specimen) AM CDT 11:54 AM CDT Timothy Smith MD LAB - BLOOD ORDERABLES Performing Organization Address [facility] Phon e Number [facility] [address] [address] [facility] CBC with platelets (02/27/2013 11:45 AM CDT) athologist Signature WBC 6.0 4.0 - 11.0 [place] 10e9/L [facility] RBC Count 4.89 4.4 - 5.9 [place] 10e12/L [facility] Hemoglobin 15.6 13.3 - [place] 17.7 g/dL [facility] Hematocrit 46.4 40.0 - [place] 53.0 % [facility] MCV 95 78 - 100 [place] fl [facility] MCH 31.9 26.5 - [place] 33.0 pg [facility] MCHC 33.6 31.5 - [place] 36.5 g/dL [facility] RDW 14.0 10.0 - [place] 15.0 % [facility] Platelet Count 191 150 - 450 [place] 10e9/L [facility] Specimen Anatomical Collection Method Collection Time Receive d Time (Source) Location / / Volume Laterality Blood specimen 02/27/2013 11:45 3 (specimen) AM CDT 11:54 AM CDT Timothy Smith MD LAB - BLOOD ORDERABLES Performing Organization Address City/State/ZIP Code Phon e Number [facility] [address] [place] [address] [phone] [facility] (ABNORMAL) Basic metabolic panel (02/27/2013 11:45 AM CDT) athologist Signature Sodium 139 133 - 144 [place] mmol/L [facility] Potassium 4.3 3.4 - 5.3 [place] mmol/L [facility] Ch[place] 102 94 - 109 [place] mmol/L [facility] Carbon Dioxide 24 20 - 32 [place] mmol/L [facility] Anion Gap 12 6 - 17 [place] mmol/L [facility] Glucose 183 (H) 60 - 99 [place] mg/dL [facility] Urea Nitrogen 20 7 - 30 [place] mg/dL [facility] Creatinine 0.79 0.66 - [place] 1.25 mg/dL [facility] GFR Estimate >90 >60 [place] mL/min/1.[address] LAB GFR Estimate If >90 >60 [place] Black mL/min/1.[address] LAB Calcium 8.7 8.5 - 10.4 [place] mg/dL [facility] Specimen Anatomical Collection Method Collection Time Receive d Time (Source) Location / / Volume Laterality Blood specimen 02/27/2013 11:45 3 (specimen) AM CDT 11:54 AM CDT Timothy Smith MD LAB - BLOOD ORDERABLES Performing Organization Address City/State/ZIP Code Phon e Number [facility] [address] [place] [address] [facility] documented in this encounter Visit Diagnoses [...] Intra-procedure documented in this encounter Care Teams Senior Unix Administrator Relationship Specialty Start Date End Date Nas Cardenas MD PCP - General Family Practice 02/01/12 04/12/17 documented as of this encounter
--- OUTSIDE RECORDS SUMMARY | 2022-08-22 07:00 | XMS_ITS | Encounter Summary ---
:1940 Author Organization [place] Address [address] [facility] [place] [address] Care Team Providers Name Role Phone Herminia Coleman MD Primary Care Provider Unavailable Graham Licona MD Primary Care Provider [facility] Primary Care Provider [phone] Slava Hernandez PA-C Primary Care Provider Timothy Smith MD Unavailable Graham Licona MD Primary Care Provider Encounter Details Date Type Department Care Team Description 03/18/2013 Office Visit-[facility] Heart Radhames Huff vale [facility] [place] Mcgee PA-C [address] [facility] [address] [place] [phone] Social History Tobacco Use Types Packs/Day Years Used Date Smoking Tobacco: Never Alcohol Use Standard Drinks/Week Comments Yes 0 (1 standard drink = 0.6 oz pure alcoho l) Sex Assigned at Date Recorded Not on file documented as of this encounter Progress Notes Michelle Huff PA-C - 04/26/2013 2:24 PM CDT Progress Note Created by: HANK Arellano [id number] DATE: 03/18/2013 KURTELICIA RADHA DATE OF : 1940 AGE: [age] years [...] past at another institution. He presented to [facility] last year with chest discomfort and was found to be in atrial flutter. Due to troponin elevation he underwent coronary angiography and was found to have no significant stenosis. No intervention was performed. Subsequently he went to [facility] and underwent a direct current cardioversion. Dr. [...] to be on Coumadin 5 mg q.d. Stevens tell me he has occasional episodes of [...] Weight- 318.00 lbs. Height- 71 BMI Measurement: SpreadShout Error: [[employer]][SpreadShout SQL Closed Circuit Screen Watcher Commercial Escrow Officer][SQL Closed Circuit Screen Watcher]Divide by zero error encountered. - [id number] CONSTITUTIONAL cooperative, alert and oriented,well developed, well [...] in 1985 with a four-vessel bypass at [facility]. Subsequent angiography in Jan, 2012, did [...] [address] [place] [address] (Wo rk) 09/28/2022 Lab Lab 09/28/2022 Office Visit Cardiology Timothy Smith MD [address] [place] [address] Trudi Grayson APRN OPERATIONS MANAGEMENT PROFESSIONALS [address] [address] 11/16/2022 Ancillary Procedure Cardiology Timothy Smith MD [address] [place] [address] (Wo rk) documented as of this encounter Visit Diagnoses Not on filedocumented in this encounter Care Teams Roving Hauler Relationship Specialty Start Date End Date Herminia Coleman, PCP - General Family Practice 02/01/1203/31 Graham Moon MD PCP - General Family Practice 04/13/17 01/15/18 [facility] [address] [place] [address] Vinny Reinoso - General 01/16/18 07/01/18 [place] [phone] Slava Hernandez, PCP - General Physician Infantry Operations Specialist 07/02/1806/02 PA-C [facility] [address] [place], [place] [phone] Graham Licona MD PCP - General Family Medicine 06/30/21 [facility] [address] [place] [address] Timothy Smith MD Assigned Heart and 07/23/20 [address] Vascular Provider [address] [place] [address] documented as of this encounter
--- OUTSIDE RECORDS SUMMARY | 2022-08-22 07:00 | XMS_ITS | Encounter Summary ---
:1940 Author Organization [place] Address [address] [facility] [place] [address] Care Team Providers Name Role Phone Nas Cardenas MD Primary Care Provider Unavailable Reason for Visit Reason Onset Date Comments Previsit 12/09/2014 Irregular Heart Beat 12/09/2014 Encounter Details Date Type Department Care Team Description 12/09/2014 PRE VISIT [facility] Heart Zarina Smith MD Previsit; [facility] [address] Heart Beat [address] [facility] [address] [facility] [address] [place] [address] [address] [phone] Social History Tobacco Use Types Packs/Day Years [...] [address] [place] [id number] (Wo rk) 09/28/2022 Lab Lab 09/28/2022 Office Visit Cardiology Timothy Smith MD [address] [place] [phone] Trudi Grayson APRN GASSER MACHINE OPERATOR [address] [address] 11/16/2022 Ancillary Procedure Cardiology Timothy Smith MD [address] [place] [address] (Wo rk) documented as of this encounter Visit Diagnoses Not on filedocumented in this encounter Care Teams Automotive Brake Specialist Relationship Specialty Start Date End Date Nas Cardenas MD PCP - General Family Practice 02/01/12 04/12/17 documented as of this encounter
--- OUTSIDE RECORDS SUMMARY | 2022-08-22 07:00 | XMS_ITS | Encounter Summary ---
:1940 Author Organization [place] Address [address] [place] [address] Care Team Providers Name Role Phone Nas Cardenas MD Primary Care Provider Unavailable Encounter Details Date Type Department Care Team Description 12/13/2012 Historic Results [facility] Heart Unknown, Doct or, Clinic [place] [id number] [facility] [address] [place] [place] [phone] Social History Tobacco Use Types Packs/Day Years [...] [address] [place] [address] (Wo rk) 09/28/2022 Lab Lab 09/28/2022 Office Visit Cardiology Timothy Smith MD [address] [place] [phone] Trudi Grayson APRN CREW MESS ATTENDANT [address] [address] 11/16/2022 Ancillary Procedure Cardiology Timothy Smith MD [address] [place] [phone] (Wo rk) documented as of this encounter [...] on filedocumented in this encounter Care Teams Fur Repairer Relationship Specialty Start Date End Date Nas Cardenas MD PCP - General Family Practice 02/01/12 04/12/17 documented as of this encounter
--- OUTSIDE RECORDS SUMMARY | 2022-08-22 07:00 | XMS_ITS | Encounter Summary ---
:1940 Author Organization [place] Address [address] [facility] [place] [address] Care Team Providers Name Role Phone Nas Cardenas MD Primary Care Provider Unavailable Reason for Referral - Closed Specialty Diagnoses / Procedures Referred By Contact Refer red To Contact Diagnoses Typical atrial flutter (H) Ankur Smith MD [address] [place] [address] Referral ID Status Reason Start Date Expiration Date Visits Requ ested Visits Authorized [id number] Closed 12/19/2017 12/19/2018 1 1 Reason for Visit Reason Comments Atrial Fib yearly f/u - Closed Specialty Diagnoses / Procedures Referred By Contact Refer red To Contact Ankur Smith MD [address] [place] [address] Referral ID Status Reason Start Date Expiration Date Visits Requ ested Visits Authorized [id number] Closed 12/10/2015 06/07/2016 1 1 Encounter Details Date Type Department Care Team Description 12/20/[address] [facility] Ankur Smith MD Benign essential hypertension (Primary D x); [facility] [place] [address] Typical atrial flutter (H) [address] [facility] [address] [facility] [address] [place] [address] [address] [place] [phone] Social History Tobacco Use Types Packs/Day Years [...] CDT December 20, 2015 [place] [address] RE: Radha Farooq : [address] 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 ASSESSMENT AND RECOMMENDATIONS: Mr. Farooq is doing reasonably well. His angina is occasional and infrequent. I agree for him to use nitroglycerin. However, if the angina frequency increases, we may have to repeat coronary angiography. His last coronary angiography was in 2011. He is known to have normal LV function. Based on his very long IN interval, I have asked him to change [...] MD MT: KALPESH Name: RADHA FAROOQ Account: [id number] : 1940 Service Date: 12/20/2015 Document: [id number] Ankur Smith MD - 12/20/2015 10:15 AM CDT HPI and Plan: See dictation Orders Placed This Encounter Procedures ??? Follow-Up with Cardiac Advanced Practice Provider ??? Follow-Up with Flower Pot Press Operator ??? EKG 12-lead complete w/read - Clinics [...] [address] [place] [address] documented in this encounter Plan of Treatment Upcoming Encounters Date Type Specialty Care Team Description 08/31/2022 Appointment Respiratory Therapy Ankur Smith MD [address] [place] [address] (Wo rk) 09/28/2022 Lab Lab 09/28/2022 Office Visit Cardiology Ankur Smith MD [address] [place] [address] Trudi Grayson APRN FUR TRIMMER [address] [place] [address] 11/16/2022 Ancillary Procedure Cardiology Ankur Smith MD [address] [place], [place] 300245 (Wo rk) Scheduled Referrals Name Type Priority Associated Diagnoses Order S chedule Follow-Up with Referral Routine Typical atrial Expected: Flower Pot Press Operator flutter (H) 12/20/19 18 (Approximate), Expires: 05/03/2018 [...] flutter documented in this encounter Care Teams Cotton Picker Relationship Specialty Start Date End Date Nas Cardenas MD PCP - General Family Practice 02/01/12 04/12/17 documented as of this encounter
--- OUTSIDE RECORDS SUMMARY | 2022-08-22 07:00 | XMS_ITS | Encounter Summary ---
:1940 Author Organization [place] Address [address] [place] [address] Care Team Providers Name Role Phone Nas Cardenas MD Primary Care Provider Unavailable Encounter Details Date Type Department Care Team Description 02/27/[address] [facility] Heart Unknown, [facility] [address] [facility] [address] [place] [phone] Social History Tobacco Use Types Packs/Day Years Used Date Smoking Tobacco: Never Alcohol Use Standard Drinks/Week Comments Yes 0 (1 standard drink = 0.6 oz pure alcoho l) Sex Assigned at Date Recorded Not on file documented as of this encounter Plan of Treatment Upcoming Encounters Date Type Specialty Care Team Description 08/31/2022 Appointment Respiratory Therapy Timothy Smith MD [address] [place] [phone] (Wo rk) 09/28/2022 Lab Lab 09/28/2022 Office Visit Cardiology Timothy Smith MD [address] [place] [phone] Trudi Grayson APRN CNP [address] [phone] 11/16/2022 Ancillary Procedure Cardiology Timothy Smith MD [address] [place] [phone] (Wo rk) documented as of this encounter [...] on filedocumented in this encounter Care Teams Hop Weigher Relationship Specialty Start Date End Date Nas Cardenas MD PCP - General Family Practice 02/01/12 04/12/17 documented as of this encounter
--- OUTSIDE RECORDS SUMMARY | 2022-08-22 07:00 | XMS_ITS | Encounter Summary ---
:1940 Author Organization [place] Address [address] [facility] [address] Care Team Providers Name Role Phone Herminia Coleman MD Primary Care Provider Unavailable Graham Licona MD Primary Care Provider [facility] Primary Care Provider [phone] Slava Hernandez PA-C Primary Care Provider Timothy Smith MD Unavailable Graham Licona MD Primary Care Provider Encounter Details Date Type Department Care Team Description 02/10/2013 Office Visit-[facility] Heart Rafael Smith MD [place] [phone] [facility] [address] [place] [address] [place] [phone] Social History Tobacco Use Types Packs/Day Years [...] old Referring Physician: HERMINIA COLEMAN Referring Clinic: [facility] CURRENT DIAGNOSES 1. - Hyperlipidemia, 272.4 2. - Hypertension, 401.1 3. [place]-Recent Unspecified, 410.91 4. - CAD, 414.00 5. [...] in another institution. The patient presented to [facility] last year with chest pain. He was [...] plan. Subsequently he went to [facility] and underwent a DC cardioversion. Apparently, [...] [address] [place] [phone] (Wo rk) 09/28/2022 Lab Lab 09/28/2022 Office Visit Cardiology Timothy Smith MD [address] [place] [address] Trudi Grayson APRN BANDER OPERATOR [address] [place] [address] 11/16/2022 Ancillary Procedure Cardiology Timothy Smith MD [address] [place] [address] (Wo rk) documented as of this encounter Visit Diagnoses Not on filedocumented in this encounter Care Teams Biodiesel Production Associate Relationship Specialty Start Date End Date Herminia Coleman, ADA - General Family Practice 02/01/1203/31 Graham Moon MD PCP - General Family Practice 04/13/17 01/15/18 [facility] [address] [place] [address] Vinny Reinoso PCP - General 01/16/18 07/01/[address] [place] [address] [place] [address] [place] [phone] Slava Hernandez, PCP - General Physician Competency Evaluated Nurse Aide 07/02/1806/02 PAIlanaC [facility] [address] [place] [address] Graham Licona MD PCP - General Family Medicine 06/30/[address] [facility] [address] [place] [address] Timothy Smith MD Assigned Heart and 07/23/20 [address] [facility] Vascular Provider [address] [place] [phone] documented as of this encounter
--- OUTSIDE RECORDS SUMMARY | 2022-08-22 07:00 | XMS_ITS | Encounter Summary ---
:1940 Author Organization [place] Address [address] [facility] [place] [address] Care Team Providers Name Role Phone Nas Cardenas MD Primary Care Provider Unavailable Encounter Details Date Type Department Care Team Description 02/27/2013 Results Only [facility] Timothy Smith MD Hospital Results [address] [place] [phone] (Wo rk) Social History Tobacco Use Types [...] MD [address] [place] [phone] (Wo rk) 09/28/2022 Lab Lab 09/28/2022 Office Visit Cardiology Timothy Smith MD [address] [place] [phone] Trudi Grayson APRN SENIOR TECHNICAL ANALYST [address] [phone] 11/16/2022 Ancillary Procedure Cardiology Timothy Smith MD [address] [place] [address] (Wo rk) documented as of this encounter Procedures Procedure Name Priority Date/Time Associated Diagnosis Commjessica nts H ABLATION ATRIAL 02/27/2013 2:26 PM [...] using the Seldi nger technique, a 5 Swedish decapolar catheter was inserted through the left [...] tricuspid isthmus. ??The ablation catheter was from [facility] with 8 mm tip. ??The ablation was [...] using the Selding er technique, a 5 Swedish decapolar catheter was inserted through the left [...] tricuspid isthmus. The ablation catheter was from [facility] with 8 mm tip. The ablation was [...] filedocumented in this encounter Care Teams Outpatient Coder Relationship Specialty Start Date End Date Nas Cardenas MD PCP - General Family Practice 02/01/12 04/12/17 documented as of this encounter
--- OUTSIDE RECORDS SUMMARY | 2022-08-22 07:01 | XMS_ITS | Encounter Summary ---
:1940 Author Organization [place] Address [facility] [place] [address] Care Team Providers Name Role Phone Unavailable Primary Care Provider Unavailable Encounter Details Date Type Department Care Team Description 10/17/2004 Historic Dra[employer] Electrical INTERFACED REPORT Dasha Gonzalez MD [facility] [address] [facility] [address] [place], [place] [id number] (Wo rk) Social History Tobacco Use Types Packs/Day Years Used Date Smoking Tobacco: Never Alcohol Use Standard Drinks/Week Comments Yes 0 (1 standard drink = 0.6 oz pure alcoho l) Sex Assigned at Date Recorded Not on file documented as of this encounter Progress Notes Dasha Gonzalez MD - 09/06/2011 4:53 AM CLOTH OPENER HAND 1st ASS'T: Sabino Ceja 2nd ASS'T: PRE-OPERATIVE [...] in good condition. DASHA GONZALEZ MD MT: [email or web address] Document: [id number] CC: DASHA GONZALEZ MD [place], [place] Name: RADHA FAROOQ OPERATIVE REPORT Page 2 of 1 LCN: EYE DSC: 10/17/2004 [place], [place] Name: RADHA FAROOQ MR#: : Procedure Date: [id number] 1940 10/17/2004 Surgeon: DASHA GONZALEZ MD OPERATIVE REPORT Page 1 of 1 H OPENER HAND documented in this encounter Plan of Treatment Upcoming Encounters Date Type Specialty Care Team Description 08/31/2022 Appointment Respiratory Therapy Timothy Smith MD [address] [id number] (Wo rk) 09/28/2022 Lab Lab 09/28/2022 Office Visit Cardiology Timothy Smith MD [address] [place] [id number] Trudi Grayson APRN [employer]ER [address] [id number] 11/16/2022 Ancillary Procedure Cardiology Timothy Smith MD [address] [place] [id number] (Wo rk) documented as of this encounter Visit Diagnoses Not on filedocumented in this encounter
--- OUTSIDE RECORDS SUMMARY | 2022-08-22 07:01 | XMS_ITS | Encounter Summary ---
:1940 Author Organization [place] Address [address] [place] [address] Care Team Providers Name Role Phone Nas Cardenas MD Primary Care Provider Unavailable Reason for Visit Reason Comments Chest Pain awoke with pain at 0600 8 Auth/Cert - Closed Specialty Diagnoses / Procedures Referred By Contact Refer red To Contact Intensive Care Diagnoses Unstable angina (H) Rh [facility] [address] [place] [address] Phone: Fax: Referral ID Status Reason Start Date Expiration Date Visits Requ ested Visits Authorized [id number] Closed 02/01/2012 07/30/2012 1 1 Encounter Details Date Type Department Care Team Description 02/01/2012 - [facility] MD [facility] [address] [place], [place] [id number] Unstable angina (H); 02/04/2012 Encounter [facility] Jayy Gill MD [address] [place] [address] HTN (hypertension); Surgical Atrial flutter (H) [address] [place] [address] Social History Tobacco Use Types [...] on 02/02/2012 which showed that the old makah vessels proximally occluded but the SVGs remain [...] on 02/02/2012. The angiogram showed the old makah vessels proximally occluded but the SVGs remain [...] HO MD MT: #[id number] Name: RADHA FAROOQ MRN: [id number] Account: [id number] : 1940 Admit Date: Discharge Date: Document: [id number] cc: Nas Cardenas MD documented in this [...] any questions that you may have.] ?? [id number] [place] [address]. All rights reserved. This information is not [...] Extreme drowsiness, confusion, dizziness or fainting ?? [phone] [facility], [address] [place] [address], [place] [address]. All rights reserved. This information is not [...] any questions that you may have.] ?? 8926-7864 Thomas Blanc, [address] [place] [address], [place] [address]. All rights reserved. This information is not [...] and Plan: A: 1)stable cardiac condition 2)S/P PA 3)Hypertension-improved control 4)atrial flutter-reasonable heart rate control [...] Transfer Skill: Sit to Stand Level of Hale: Sit/Stand independent IADL Evaluation Previous Responsibilities yardwork;medication [...] flutter/sinus rhythm Assessment and Plan: A: 1)S/P PA with elevated troponin 2)atrial flutter with relatively [...] Luevano MD - 02/02/2012 11:38 AM CDT [facility] Cardiology Progress Note Problem List: Patient Active [...] Gill MD - 02/01/2012 2:41 PM CDT [facility] Hospitalist Admission Note Name: Radha [...] for evaluation. Patient was started on NTG ip and heparin and I was asked to [...] T wave abnormality. Heart rate 78 bpm, NH Interval 178 ms, QT/QTc 378/430 ms, R [...] study night of: 02/02/2012. Study running from 8379 to 9790. (See attached graphics in paper chart) This [...] VAZQUEZ MD MT: Name: RADHA FAROOQ Account: [id number] : 1940 Procedure Date: 02/02/2012 Document: [id number] Umair Alves MD - 02/02/2012 2:58 PM [...] embolus, arrhythmia, use of stents, need for half-way thienopyridine therapy, restenosis, the alternative of medical [...] needle, and with Seldinger technique, a 6 Portuguese sheath placed in the right radial artery. We gave no additional units of heparin since his heparin was stopped upon arrival in labor gang supervisor. We gave 2.5 mg of verapamil and [...] to cannulate the SVG to RCA 2) [place] CAG The [place] RCA was cannulated with a 5Fr Manas catheter and the LMCA was cannulated with a 6Fr JL4. Orthogonal views were performed. 2. Left heart catheterization. We exchanged for a0Pgmevn pigtail catheter. This catheter was advanced under [...] to moderate D1 fills via ipsicollaterals from makah LAD via injection of SVG. There is [...] a retrograde fashion via injection of the makah RCA. There is no significant narrowing in [...] to the distal anastamotic site. 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 I have explained to the patient the risks of , PA, stroke, hematoma, possible urgent bypass surgery for [...] syndrome. HISTORY OF PRESENT ILLNESS: Mr. Radha Fraooq is a very pleasant 71-year-old gentleman with [...] he had a very similar presentation in [place], in [place], at the [facility], and underwent cardiac catheterization and was [...] in 1985 with a 4-vessel bypass at [facility]. He has not had any further [...] MD MT: #[id number] Name: RADHA FAROOQ Account: [id number] : 1940 Consult Date: 02/01/2012 Document: [id number] José Luevano MD - 02/01/2012 4:48 PM [...] patient prior to being taken to the labor gang supervisor tomorrow morning. documented in this encounter ED [...] T wave abnormality. Heart rate 78 bpm, NH Interval 178 ms, QT/QTc 378/430 ms, R [...] Individualization/Patient-Specific Goal (Adult,OB,Behavioral The patient and/or their account services representative will achieve their patient-specific goals related to the plan of care. The patient-specific goals include: RN: reviewed discharge and medication listing with patient and . Provided Lovenox teaching, warfarin teaching, and provided educational materials regarding Lisinopril, metoprolol, lovenox, and warfarin. Patients prescriptions were faxed to [facility]. Patient awaiting staff to bring to car by wheel chair for transport home by /POV at 1541 hours. Denies dizziness, SOB, or pain. Pt ambulated hallways several times with hospital staff/tolerated well with no SOB, dizziness, pain. Plan of Care - Kimberly Nur RN - 02/04/2012 5:42 AM CDT Problem: IP GENERAL POC-ADULT,OB,BEHAVIORAL FVCPM Goal: Individualization/Patient-Specific Goal (Adult,OB,Behavioral The patient and/or their account services representative will achieve their patient-specific goals related to the plan of care. The patient-specific goals include: Outcome: Improving Pt rested well throughout night. VSS. No c/o CP/discomfort. Tele Aflutter with CVR, but looks like SR at times. Angio done and 01/31. Sheath site on L arm with dressing that is CDI. Cardio following. Plan for possible ablation at [facility]. Will continue to monitor. Plan of Care - Sulema Sexton RN - 02/03/2012 10:53 PM CDT Problem: IP GENERAL POC-ADULT,OB,BEHAVIORAL FVCPM Goal: Individualization/Patient-Specific Goal (Adult,OB,Behavioral The patient and/or their account services representative will achieve their patient-specific goals related [...] Occupational Therapy Goals The patient and/or their account services representative will achieve their patient-specific goals related [...] and scheduling cardiac rehab. Pt lives in [place] so stated he didn't want to have [...] physical activity to decrease risk of another PA.. DC from cardiac OT Plan of Care - Sharla Veloz RN - 02/03/2012 2:46 PM CDT Problem: IP GENERAL POC-ADULT,OB,BEHAVIORAL FVCPM Goal: Individualization/Patient-Specific Goal (Adult,OB,Behavioral The patient and/or their account services representative will achieve their patient-specific goals related to the plan of care. The patient-specific goals include: Outcome: No Change Bp elevated this afternoon, 150-180/100-113. Tele was sr until 1014 when pt went into aflutter/fib. Pt denies pain, sob, chest pain. Cms intact in ue's. Pt denies numbness/tingling. Pt up to br multiples without problems. Pt transferred to [facility] tele. Plan of Care - Sharla Veloz RN - 02/03/2012 2:16 PM CDT Report called to Chitra EL on [facility]. Provider Notification - Sharla Veloz RN - 02/03/2012 1:[address] Richard pagekourtney with new bp of 183/113. Orders received [...] Individualization/Patient-Specific Goal (Adult,OB,Behavioral The patient and/or their account services representative will achieve their patient-specific goals related [...] Smith MD [address] [place] [address] (Wo rk) 09/28/2022 Lab Lab 09/28/2022 Office Visit Cardiology Timothy Smith MD [address] [place] [address] Trudi Grayson APRN COMPUTER REPAIR INSTRUCTOR [address] [place] [address] 11/16/2022 Ancillary Procedure Cardiology Timothy Smith MD [address] [place] [address] (Wo rk) Pending Results Name Type Priority [...] study night of: 02/02/2012. Study running from 7389 to 0554. (See attached graphics in paper chart) This [...] VAZQUEZ MD MT: rh Name: RADHA FAROOQ MRN: [id number] Account: [id number] : 1940 Procedure Date: 02/02/20 Document: [id number] Julianna Vazquez MD PFT ORDERABLES (ABNORMAL) Glucose by meter (02/04/2012 11:34 AM CDT) P athologist Signature Glucose 130 (H) 60 - 99 POINT OF CARE mg/dL TEST, GLUCOSE Specimen Anatomical Collection Method Collection Time Receive d Time (Source) Location / / Volume Laterality 02/04/2012 11:34 02/04/2012 AM CDT 11:50 AM CDT Jayy LAGUNAS - LIYA POCT Performing Organization Address City/State/ZIP Code Phon e Number FV POINT OF CARE TEST, GLUCOSE POINT OF CARE TEST, GLUCOSE (ABNORMAL) Glucose by meter (02/04/2012 7:25 AM CDT) P athologist Signature Glucose 138 (H) 60 - 99 POINT OF CARE mg/dL TEST, GLUCOSE Comment: RN/Dr notified Specimen Anatomical Collection Method Collection Time Receive d Time (Source) Location / / Volume Laterality 02/04/2012 7:25 AM 2 7:50 CDT AM CDT Jayy LAGUNAS - LIYA POCT Performing Organization Address City/[facility]/ZIP Code Phon e Number FV POINT OF CARE TEST, GLUCOSE POINT OF CARE TEST, GLUCOSE (ABNORMAL) INR (02/04/2012 6:18 AM CDT) P athologist Signature INR 1.15 (H) 0.86 - 1.14 [facility] Specimen Anatomical Collection Method Collection Time Receive d Time (Source) Location / / Volume Laterality Blood specimen 02/04/2012 6:18 AM 012 6:31 (specimen) CDT AM CDT Jayy Gill MD LAB - BLOOD ORDERABLES Performing Organization Address City/State/ZIP Code Phon e Number M [facility] [address] [place], [place] [address] [facility] CBC (AM Draw) (02/04/2012 6:18 AM CDT) athologist Signature WBC 7.7 4.0 - 11.0 [place] 10e9/L [facility] RBC Count 4.90 4.4 - 5.9 [place] 10e12/L [facility] Hemoglobin 15.7 13.3 - [place] 17.7 g/dL [facility] Hematocrit 47.1 40.0 - [place] 53.0 % [facility] MCV 96 78 - 100 [place] fl [facility] MCH 32.0 26.5 - [place] 33.0 pg [facility] MCHC 33.3 31.5 - [place] 36.5 g/dL [facility] RDW 14.1 10.0 - [place] 15.0 % [facility] Platelet Count 152 150 - 450 [place] 10e9L [facility] Specimen Anatomical Collection Method Collection Time Receive d Time (Source) Location / / Volume Laterality Blood specimen 02/04/2012 6:18 AM 012 6:31 (specimen) CDT AM CDT Jayy Gill MD LAB - BLOOD ORDERABLES Performing Organization Address City/State/ZIP Code Phon e Number M [place] [address] [facility] (ABNORMAL) Basic metabolic panel (02/04/2012 6:18 AM CDT) athologist Signature Sodium 142 133 - 144 [place] mmol/L [facility] Potassium 4.1 3.4 - 5.3 [place] mmol/L [facility] Chloride 101 94 - 109 [place] mmol/L [facility] Carbon Dioxide 30 20 - 32 [place] mmol/L [facility] Anion Gap 11 6 - 17 [place] mmol/L [facility] Glucose 119 (H) 60 - 99 [place] mg/dL [facility] Urea Nitrogen 14 7 - 30 [place] mg/dL [facility] Creatinine 0.68 0.66 - [place] 1.25 mg/dL [facility] GFR Estimate >90 >60 [place] mL/min/1.[address] LAB GFR Estimate If >90 >60 [place] Black mL/min/1.[address] [place] [address] LAB Calcium 8.8 8.5 - 10.4 [place] mg/dL [facility] Specimen Anatomical Collection Method Collection Time Receive d Time (Source) Location / / Volume Laterality Blood specimen 02/04/2012 6:18 AM 012 6:31 (specimen) CDT AM CDT Jayy Gill MD LAB - BLOOD ORDERABLES Performing Organization Address City/State/ZIP Code Phon e Number [place] [address], [place] [address] [facility] (ABNORMAL) Glucose by meter (02/03/2012 8:41 [...] gist Range Method Time Signature Specimen Nares [facility] LAB Methicillin MRSA Negative: SA Negative ? ?MRSA and Staphylococcus aureus target DNA not [facility] Resist/Sens S. detected, presumed negative for MRSA and SA colonization or the number of MICROBIOLOGY aureus PCR bacteria present may be bel ow the limit of detection for the assay. FDA approved assay performed using [employer] GeneXpert(R) real-ti me PCR. Specimen (Source) Anatomical Collection Method Collection Time Re ceived Time Location / / Volume Laterality Nasal structure 02/03/2012 8:25 2 9:02 (body structure) PM CDT PM CDT Jeffrey Stallworth MD LAB - MICRO GENERAL ORDERABL ES Performing Organization Address City/State/ZIP Code Phon e Number [facility] [address] [place] [address] [facility] MICROBIOLOGY (ABNORMAL) Glucose by meter (02/03/2012 6:08 PM CDT) P athologist Signature Glucose 163 (H) 60 - 99 POINT OF CARE mg/dL TEST, GLUCOSE Specimen Anatomical Collection Method Collection Time Receive d Time (Source) Location / / Volume Laterality 02/03/2012 6:08 PM 2 6:25 CDT PM CDT Jayy LAGUNAS - LIYA POCT Performing Organization Address [facility] Phon e Number FV POINT OF CARE [...] LAGUNAS - LIYA POCT Performing Organization Address [facility] Phon e Number FV POINT OF CARE [...] LAGUNAS - LIYA POCT Performing Organization Address [facility] Phon e Number FV POINT OF CARE TEST, GLUCOSE POINT OF CARE TEST, GLUCOSE EKG 12-lead, tracing only (02/03/2012 5:59 AM CDT) Component Value Ref Range Test Analysis Performed Pathologis t Method Time At Signature Ventricular Rate 76 BPM RADIOLOGY RESULTS Atrial Rate 76 BPM RADIOLOGY RESULTS NH Interval 168 ms RADIOLOGY RESULTS QRS Duration 106 ms RADIOLOGY RESULTS QT 368 ms RADIOLOGY RESULTS QTc 414 ms RADIOLOGY RESULTS P Fowler 69 degrees RADIOLOGY RESULTS R AXIS 1 degrees RADIOLOGY RESULTS T Fowler 117 degrees RADIOLOGY RESULTS Interpretation Sinus rhythm [...] RESULTS Atrial Rate 78 BPM RADIOLOGY RESULTS NH Interval 168 ms RADIOLOGY RESULTS QRS Duration 100 ms RADIOLOGY RESULTS QT 364 ms RADIOLOGY RESULTS QTc 414 ms RADIOLOGY RESULTS P Fowler 75 degrees RADIOLOGY RESULTS R AXIS 3 degrees RADIOLOGY RESULTS T Fowler 126 degrees RADIOLOGY RESULTS Interpretation Sinus rhythm [...] Platelet Count 140 (L) 150 - 450 [place] 10e9/L [facility] Specimen Anatomical Collection Method Collection Time Receive d Time (Source) Location / / Volume Laterality Blood specimen 02/03/2012 5:50 AM 012 5:58 (specimen) CDT AM CDT Sabino Lujan [facility] LAB - BLOOD ORDERABLES Performing Organization Address City/[facility]/ZIP Code Phon e Number M [facility] [address], [place] [address] [facility] INR (02/03/2012 5:50 AM CDT) athologist Signature INR 1.09 0.86 - 1.14 [facility] Specimen Anatomical Collection Method Collection Time Receive d Time (Source) Location / / Volume Laterality Blood specimen 02/03/2012 5:50 AM 012 5:58 (specimen) CDT AM CDT José Luevano MD LAB - BLOOD ORDERABLES Performing Organization Address City/[facility]/ZIP Code Phon e Number M [facility] [address], [place] [address] [facility] ECG - HIM ECG Scan (02/03/2012) [...] LAB - BEAKER POCT Performing Organization Address City/[facility]/ZIP Code Phon e Number FV POINT OF CARE TEST, GLUCOSE POINT OF CARE TEST, GLUCOSE (ABNORMAL) Glucose by meter (02/02/2012 5:39 PM CDT) athologist Signature Glucose 138 (H) 60 - 99 POINT OF CARE mg/dL TEST, GLUCOSE Specimen Anatomical Collection Method Collection Time Receive d Time (Source) Location / / Volume Laterality 02/02/2012 5:39 PM 2 5:45 CDT PM CDT Jayy Gill MD LAB - BEAKER POCT Performing Organization Address City/State/ZIP Code Phon e Number FV POINT OF CARE TEST, GLUCOSE POINT OF CARE TEST, GLUCOSE INR (02/02/2012 4:30 PM CDT) P athologist Signature INR 1.05 0.86 - 1.14 [facility] LAB Specimen Anatomical Collection Method Collection Time Receive d Time (Source) Location / / Volume Laterality Blood specimen 02/02/2012 4:30 PM 012 4:43 (specimen) CDT PM CDT Sabino Lujan [facility] LAB - BLOOD ORDERABLES Performing Organization Address City/State/ZIP Code Phon e Number M [facility] [address] [place] [place], [place] [address] [facility] Heart Cath Left heart cath (02/02/2012 3:32 PM CDT) Anatomical Region Laterality Modality Other Specimen (Source) Anatomical Collection Method Collection Time Re ceived Time Location / / Volume Laterality 02/02/2012 3:32 PM CDT Impressions 02/03/2012 10:17 AM CDT RADHA FAROOQ PROCEDURES PERFORMED: 1. ??Left internal mammary angiogram. 2. ??Saphenous venous bypass graft angio graphy. 3. ??[place] coronary angiography. 4. ??Left heart catheterization. 5. ??Left ventriculogram. APPROACH: ??Left radial artery. COMPLICATIONS: ??None noted. INDICATION FOR THIS PROCEDURE: ??Mr. Leon is a 71-year-old man with a known [...] and with Seldinger techniqu e, a 6 Portuguese sheath placed in the left radial artery. ??We gave 2.5 mg of verapamil and 400 mcg nitroglycerin intra-arterially. ??The jose francisco lawrence had just been on a heparin drip, and we did not give him an y additional heparin as it had been stopped on admission here to [facility] lab. ??We advanced a 4 Portuguese left internal mammary catheter an d seated [...] angiography was performed in orthogonal views. 3. ??[place] coronary angiogram. ??We use d a 5 Portuguese Manas catheter to cannulate the ostium of the right fung ry artery. ??Right coronary angiography was performed in orthogonal views. ??We later exchanged for first a JL4 4 Portuguese and then finall y a JL4 6 Portuguese catheter which allowed us to seat in [...] vessel. ??There is filling of both septal cold press operator bra nches and a small to [...] narrowing distal to the distal anastomotic site. [place] coronary arteries: 1. ??The makah left main: ??This vessel of occluded in [...] small terminal marginal branch system. ?? 3. ??[place] right coronary artery: ??Thi s is a dominant vessel. ??It has a proximal 85-90% narrowing. ??There is competitive filling seen in the mid and distal right coronary with i njection of the makah right coronary artery from the patent bypass g raft. ??The right coronary distal to the distal anastomotic site of the bypass graft has no significant narrowing. 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 [...] LAGUNAS - BEAKER POCT Performing Organization Address City/[facility] Phon e Number FV POINT OF CARE TEST, GLUCOSE POINT OF CARE TEST, GLUCOSE (ABNORMAL) Glucose by meter (02/02/2012 7:32 AM CDT) P athologist Signature Glucose 148 (H) 60 - 99 POINT OF CARE mg/dL TEST, GLUCOSE Specimen Anatomical Collection Method Collection Time Receive d Time (Source) Location / / Volume Laterality 02/02/2012 7:32 AM 2 8:16 CDT AM CDT Jayy LAGUNAS - BEAKER POCT Performing Organization Address City/[facility] Phon e Number FV POINT OF CARE TEST, GLUCOSE POINT OF CARE TEST, GLUCOSE TSH (02/02/2012 5:26 AM CDT) P athologist Signature TSH 1.64 0.4 - 5.0 [facility] LAB Specimen Anatomical Collection Method Collection Time Receive d Time (Source) Location / / Volume Laterality 02/02/2012 5:26 AM 2 5:41 CDT AM CDT Jayy Gill MD LAB - BLOOD ORDERABLES Performing Organization Address City/State/ZIP Code Phon jessica Eden [facility] [address] [place], [place] [address] [facility] Heparin Xa (10a) Level (02/02/2012 5:26 AM CDT) P athologist Signature Heparin 10A 0.20 IU/mL [facility] LAB Comment: Therapeutic Range: ?? UFH: ?? [...] ORDERABLES Performing Organization Address City/State/ZIP Code Phon jessica [place] [facility] [address] [place], [place] [address] [facility] (ABNORMAL) Basic metabolic panel (02/02/2012 5:26 AM CDT) Analysis Performed At Patho logist Time Signature Sodium 139 133 - 144 [place] mmol/L [facility] Potassium 4.1 3.4 - 5.3 [place] mmol/L [facility] Chloride 101 94 - 109 [place] mmol/L [facility] Carbon Dioxide 27 20 - 32 [place] mmol/L [facility] Anion Gap 10 6 - 17 [place] mmol/L [facility] Glucose 140 (H) 60 - 99 [place] mg/dL [facility] Urea Nitrogen 16 7 - 30 [place] mg/dL [facility] Creatinine 0.59 (L) 0.66 - [place] 1.25 mg/dL [facility] GFR Estimate >90 >60 [place] mL/min/1.[address] LAB GFR Estimate If >90 >60 [place] Black mL/min/1.7 [facility] m2 [facility] LAB Calcium 8.7 8.5 - 10.4 [place] mg/dL [facility] Specimen Anatomical Collection Method Collection Time Receive d Time (Source) Location / / Volume Laterality Blood specimen 02/02/2012 5:26 AM 012 5:41 (specimen) CDT AM CDT Jayy Gill MD LAB - BLOOD ORDERABLES Performing Organization Address [facility] Phon e Number [place] [address], [place] [address] [facility] (ABNORMAL) Hemoglobin A1c (02/02/2012 5:26 AM CDT) P athologist Signature Hemoglobin A1C 6.6 (H) 4.3 - 6.0 [facility] LAB Specimen Anatomical Collection Method Collection Time Receive d Time (Source) Location / / Volume Laterality Blood specimen 02/02/2012 5:26 AM 012 5:41 (specimen) CDT AM CDT Jayy Gill MD LAB - BLOOD ORDERABLES Performing Organization Address City/[facility] Phon e Number [place] [address], [place] [address] [facility] (ABNORMAL) Troponin I - every 6 hours x 4 (02/02/2012 5:26 AM CDT) Analysis Performed At Patho logist Time Signature Troponin I ES 5.030 (HH) 0.000 - [place] 0.034 ug/L [facility] Comment: Critical Value called to and read back sam MICHELE (ICU) ON 02.02.12 AT 0615 BY EK Specimen Anatomical Collection Method Collection Time Receive d Time (Source) Location / / Volume Laterality Blood specimen 02/02/2012 5:26 AM 012 5:41 (specimen) CDT AM CDT Jayy Gill MD LAB - BLOOD ORDERABLES Performing Organization Address City/State/[facility] Phon e Number M [facility] [address] [place], [place] [address] [facility] OXIMETRY COMPREHENSIVE REPORT - HIM Other Scan (02/02/2012) Narrative This result has an attachment that is no t available. Julianna Vazquez MD IP NURSING ACTIVITY (ABNORMAL) Troponin I - every 6 hours x 4 (02/01/2012 11:59 PM CDT) Analysis Performed At Patho logist Time Signature Troponin I ES 4.260 (HH) 0.000 - [facility] 0.034 ug/L [facility] Comment: Critical Value called to and read back sam GANN(ICU)ON [id number] @0041 TT Specimen Anatomical Collection Method Collection Time Receive d Time (Source) Location / / Volume Laterality Blood specimen 02/01/2012 11:59 2 (specimen) PM CDT 12:07 AM CDT Jayy Gill MD LAB - BLOOD ORDERABLES Performing Organization Address [facility]/ZIP Code Phon e Number Karey [facility] [address] [place], [place] [address] [facility] LAB (ABNORMAL) Glucose by meter (02/01/2012 9:15 PM CDT) P athologist Signature Glucose 155 (H) 60 - 99 POINT OF CARE mg/dL TEST, GLUCOSE Specimen Anatomical Collection Method Collection Time Receive d Time (Source) Location / / Volume Laterality 02/01/2012 9:15 PM 2 9:20 CDT PM CDT Jayy Gill MD LAB - BEAKER POCT Performing Organization Address City/[facility]/ZIP [facility] Phon e Number FV POINT OF CARE TEST, GLUCOSE POINT OF CARE TEST, GLUCOSE Heparin 10a Level (02/01/2012 7:40 PM CDT) P athologist Signature Heparin 10A 0.26 IU/mL [facility] LAB Comment: Therapeutic Range: ?? UFH: ?? [...] LAB - BLOOD ORDERABLES Performing Organization Address [facility] Phon e Number M [facility] [address] [place], [place] [address] [facility] LAB (ABNORMAL) Troponin I - every 6 hours x 4 (02/01/2012 6:30 PM CDT) Analysis Performed At Patho logist Time Signature Troponin I ES 2.330 (HH) 0.000 - [place] 0.034 ug/L [facility] LAB Comment: Critical Value called to and read back sam MCKOY (ASSISTANT HEALTH EDUCATOR) AT 1900 05.03.12, TD Specimen Anatomical Collection Method Collection Time Receive d Time (Source) Location / / Volume Laterality Blood specimen 02/01/2012 6:30 PM 012 6:34 (specimen) CDT PM CDT Jayy Gill MD LAB - BLOOD ORDERABLES Performing Organization Address [facility] Phon e Number M [facility] [address], [place] [address] [facility] LAB Heparin 10a Level (02/01/2012 6:30 PM CDT) P athologist Signature Heparin 10A 0.30 IU/mL [facility] LAB Comment: Therapeutic Range: ?? UFH: ?? [...] 012 6:34 (specimen) CDT PM CDT Cheng Crump [facility] LAB - BLOOD ORDERABLES Performing Organization Address [facility] Phon e Number [facility] [address], [place] [address] [facility] LAB (ABNORMAL) Glucose by meter (02/01/2012 5:02 PM CDT) P athologist Signature Glucose 121 (H) 60 - 99 POINT OF CARE mg/dL TEST, GLUCOSE Specimen Anatomical Collection Method Collection Time Receive d Time (Source) Location / / Volume Laterality 02/01/2012 5:02 PM 2 6:50 CDT AM CDT Jayy Gill MD LAB - BEAKER POCT Performing Organization Address [facility]/ZIP [facility] Phon e Number FV POINT OF CARE TEST, GLUCOSE POINT OF CARE TEST, GLUCOSE (ABNORMAL) Hemoglobin A1c (02/01/2012 3:18 PM CDT) P athologist Signature Hemoglobin A1C 6.7 (H) 4.3 - 6.0 [facility] LAB Specimen Anatomical Collection Method Collection Time Receive d Time (Source) Location / / Volume Laterality Blood specimen 02/01/2012 3:18 PM 012 3:23 (specimen) CDT PM CDT Jayy Gill MD LAB - BLOOD ORDERABLES Performing Organization Address City/[facility]/ZIP Code Phon e Number M [facility] [address], [place] [address] [facility] LAB (ABNORMAL) CBC with platelets (02/01/2012 3:18 PM CDT) P athologist Signature WBC 7.6 4.0 - 11.0 [place] 10e9/L [facility] RBC Count 4.71 4.4 - 5.9 [place] 10e12/L [facility] Hemoglobin 15.0 13.3 - [facility] 17.7 g/dL [facility] Hematocrit 44.7 40.0 - [place] 53.0 % [facility] MCV 95 78 - 100 [place] fl [facility] MCH 31.8 26.5 - [facility] 33.0 pg [facility] MCHC 33.6 31.5 - [place] 36.5 g/dL [facility] RDW 13.8 10.0 - [place] 15.0 % [facility] Platelet Count 148 (L) 150 - 450 [place] 10e9/L [facility] Specimen Anatomical Collection Method Collection Time Receive d Time (Source) Location / / Volume Laterality Blood specimen 02/01/2012 3:18 PM 012 3:23 (specimen) CDT PM CDT Jayy Gill MD LAB - BLOOD ORDERABLES Performing Organization Address City/State/ZIP Code Phon e Number [facility] [address], [place] [address] [facility] LAB (ABNORMAL) Troponin I - every 6 hours x 4 (02/01/2012 3:18 PM CDT) Analysis Performed At Patho logist Time Signature Troponin I ES 0.912 (HH) 0.000 - [facility] 0.034 ug/L [facility] Comment: Critical Value called to and read back sam MCKOY (ICU CHARGE NURSE) AT 1555 05.03.12 , TD Specimen Anatomical Collection Method Collection Time Receive d Time (Source) Location / / Volume Laterality Blood specimen 02/01/2012 3:18 PM 012 3:23 (specimen) CDT PM CDT Jayy Gill MD LAB - BLOOD ORDERABLES Performing Organization Address City/State/ZIP Code Phon e Number M [facility] [address] [place], [place] [address] [facility] Echo complete with definYoozon (02/01/2012 2:52 PM CDT) [facility] Method Time Signature [facility] Interpretation Summary [...] Troponin I ES 0.047 (H) 0.000 - [place] 0.034 ug/L [facility] Comment: The 99th percentile for upper [...] e Number [facility] [address] [place], [place] [address] [facility] EKG 12 lead (02/01/2012 9:51 AM CDT) Component Value Ref Range Test Analysis Performed Pathologis t Method Time At Signature Ventricular Rate 78 BPM RADIOLOGY RESULTS Atrial Rate 78 BPM RADIOLOGY RESULTS NH Interval 178 ms RADIOLOGY RESULTS QRS Duration 136 ms RADIOLOGY RESULTS QT 378 ms RADIOLOGY RESULTS QTc 430 ms RADIOLOGY RESULTS P Fowler 77 degrees RADIOLOGY RESULTS R AXIS 3 degrees RADIOLOGY RESULTS T Fowler -160 degrees RADIOLOGY RESULTS Interpretation Sinus rhythm [...] RESULTS QTc 504 ms RADIOLOGY RESULTS P Fowler 90 degrees RADIOLOGY RESULTS R AXIS 7 degrees RADIOLOGY RESULTS T Fowler -121 degrees RADIOLOGY RESULTS Interpretation Atrial flutter [...] Signature Troponin I ES 0.026 0.000 - [place] 0.034 ug/L [facility] Specimen Anatomical Collection Method Collection Time Receive d Time (Source) Location / / Volume Laterality Blood specimen 02/01/2012 8:45 AM 012 9:04 (specimen) CDT AM CDT Stephen Liriano MD LAB - BLOOD ORDERABLES Performing Organization Address City/State/ZIP [facility] Phon e Number [facility] [address], [place] [address] [facility] LAB (ABNORMAL) Basic metabolic panel (02/01/2012 8:45 AM CDT) Analysis Performed At Patho logist Time Signature Sodium 141 133 - 144 [place] mmol/L [facility] Potassium 4.1 3.4 - 5.3 [place] mmol/L [facility] Chloride 99 94 - 109 [place] mmol/L [facility] Carbon Dioxide 30 20 - 32 [place] mmol/L [facility] Anion Gap 12 6 - 17 [place] mmol/L [facility] Glucose 181 (H) 60 - 99 [place] mg/dL [facility] Urea Nitrogen 20 7 - 30 [place] mg/dL [facility] Creatinine 0.59 (L) 0.66 - [facility] 1.25 mg/dL [facility] GFR Estimate >90 >60 [place] mL/min/1.[address] LAB GFR Estimate If >90 >60 [place] Black mL/min/1.[address] [place] [address] LAB Calcium 8.8 8.5 - 10.4 [place] mg/dL [facility] Specimen Anatomical Collection Method Collection Time Receive d Time (Source) Location / / Volume Laterality Blood specimen 02/01/2012 8:45 AM 012 9:04 (specimen) CDT AM CDT Stephen Liriano MD LAB - BLOOD ORDERABLES Performing Organization Address City/State/ZIP Code Phon e Number M [place] [address], [place] [address] [facility] LAB CBC with platelets differential (02/01/2012 8:45 AM CDT) Patholo gist Method Time Signature WBC 6.1 4.0 - [facility] 11.0 [facility] 10e9/L [facility] LAB RBC Count 4.93 4.4 - 5.9 [place] 10e12/L [facility] Hemoglobin 15.8 13.3 - [facility] 17.7 g/dL [facility] Hematocrit 47.0 40.0 - [facility] 53.0 % [facility] MCV 95 78 - 100 [place] fl [facility] MCH 32.0 26.5 - [facility] 33.0 pg [facility] MCHC 33.6 31.5 - [facility] 36.5 g/dL [facility] RDW 14.0 10.0 - [facility] 15.0 % [facility] Platelet Count 161 150 - [address] [place] [address] [place] [address] LAB Diff Method Automated [place] Method [facility] % Neutrophils 55.3 40 - 75 % [facility] % Lymphocytes 29.5 20 - 48 % [facility] % Monocytes 9.1 0 - 12 % [facility] % Eosinophils 5.3 0 - 6 % [facility] % Basophils 0.5 0 - 2 % [facility] % Immature 0.3 0 - 0.4 % [place] Granulocytes [facility] Absolute 3.4 1.6 - 8.3 [place] Neutrophil 10e9/L [facility] Absolute 1.8 0.8 - 5.3 [place] Lymphocytes [address] LAB Absolute 0.6 0.0 - 1.3 [place] Monocytes [address] LAB Absolute 0.3 0.0 - 0.7 [place] Eosinophils 10e9/L [facility] Absolute 0.0 0.0 - 0.2 [place] Basophils [address] [place] [address] LAB Abs Immature 0.0 0 - 0.03 [place] Granulocytes [address] [place] [address] LAB Specimen Anatomical Collection Method Collection Time Receive d Time (Source) Location / / Volume Laterality Blood specimen 02/01/2012 8:45 AM 012 9:04 (specimen) CDT AM CDT Stephen Liriano MD LAB - BLOOD ORDERABLES Performing Organization Address City/State/ZIP Code Phon e Number M [facility] [address], [place] [address] [facility] LAB ECG - HIM ECG Scan (02/01/2012) [...] IV for 2 hours prior to cardiac labor gang supervisor procedure, then decrease to 75 mL/hr to [...] at 0855, For 1 dose, MADELYN CAGE: Cabinet Override aspirin chewable tablet 243 mg Given [...] Including day before and day of cardiac labor gang supervisor procedure (except if pt. Allergic) if not already given today in ED for patients arriving on day of cardiac labor gang supervisor procedure. Already received total of 325 mg 5/3 am. Given 02/03/2012 8:05 AM CDT 325 [...] 0.4 MG SL tabl et Starting on [facility] 02/01/12 at 0858, For 1 dose, MADELYN [...] (adult std) 200-5 MCG/ML-% infusion Starting on [facility] 02/01/12 at 1003, For 1 dose, MADELYN CAGE: Cabinet Override nitroglycerin 50 mg in D5W 250 mL New Bag 02/02/2012 7:24 AM C DT mcg/kg/min mL/hr (adult std) 200-5 MCG/ML-% infusion Starting on Sun02/02/12 at 0539, For 1 dose, DALY NORWOOD: Darrion Override nitroglycerin 50 mg in Rate/Dose Verify [...] Including day before and day of cardiac labor gang supervisor procedure (except if pt. Allergic) if not already given today in ED for patients arriving on day o f cardiac labor gang supervisor procedure. Already received total of 325 mg 5 /3 am. enoxaparin (LOVENOX) injection 150 mg 1956 (Given - Pr ovider: Sherman Messer RN) 804 (Given - Provider: Misa Nelson)2041 (Given - Provider: Mildred Massey RN) 813 (Given - Provider: Modesto Carey) 1 mg/kg [...] 1 dose lisinopril (PRINIVIL,ZESTRIL) tablet 5 mg 2041 (Given - Provider: Mildred Massey RN) 08 (Given - Provider: Modesto Carey) 5 mg, [...] (TOPROL-XL) 24 hr tablet 100 mg (CANCELED) 1645 (Given - Provider: Brian Little RN) 08 (Given - Provider: Misa Nelson) 100 mg, Oral, DAILY, First dose on Sun at 1530, DO NOT CRUSH. Tablet may be split in half along score line. metoprolol (TOPROL-XL) 24 hr tablet 50 mg 813 (Given - Provider: Marta Bynum LPN) 50 mg, Oral, 2 TIMES DAILY, First dose o n [place] 02/04/12 at 0900, DO NOT CRUSH. Tablet may be split in half along score line. Hold if systolic bp<100 or hr<60 pantoprazole (PROTONIX) EC tablet 40 mg (CANCELED) 065 6 (Given - Provider: Daly Norwood RN) 08 (Given - Provider: Misa Nelson) 0632 (Given [...] 6-50 MG per tablet 1-2 tablet (CANCELED) 0901 (Given - Provider: Brian Little RN) 195 (Given - Provider: Sherman Messer, SIENNA)221 (Not Given - Provider: Sherman Messer RN [...] RN - Reason: Transfer to a procedural area)221 (Not Given - Provider: Sherman Messer RN [...] Bynum LPN)1600 (Canceled Entry - Provider: Sharla Ruiz, SIENNA) 3 mL, Intravenous, EVERY 8 HOURS, First dose on Sun02/02/12 at 1530, And Q1H PRN, to lock peripheral IV dormant line. warfarin (COUMADIN) tablet 7.5 mg (COMPLETED) 1958 (Gi didier - Provider: Sherman Messer, RN) 7.5 mg, Oral, ONCE AT 6PM, 02/02/12 at 1915, For 1 dose, Dispo se as HW-P warfarin (COUMADIN) tablet 7.5 mg (COMPLETED) 1805 (Given - Provider: Sulema East RN) 7.5 [...] IV for 2 hours prior to cardiac labor gang supervisor procedure, then decrease to 75 mL/hr to run throughout the procedure. Sta rt at 0800 for inpatients., Cardiac Pre-procedure 0.9 % sodium chloride IV solution (CANCELED) 1649 (New Bag - Provider: Brian Little RN) 1,000 mL, Intravenous, at 75 mL/hr, CONT INUOUS, Starting Sun02/02/12 at 1530, or until patient is ambulating. Post coronary angiogram diagnostic exams. heparin drip 25,000 units in D5W 250 mL (CANCELED) 044 7 (New Bag - Provider: Daly Norwood, RN)0730 (Rate/Dose Verify - Provider: Brian Little, RN)1325 (Stopped - Provider: Essie Lorenzo RN) 1,100 Units/hr = 11 mL/hr, Intravenous, at [...] ordered by prescriber during the procedure., Starting 02/02/12 at 1335, Doses can be exceeded under [...] Override documented in this encounter Care Teams Senior Procurement Manager Relationship Specialty Start Date End Date Nas Cardenas MD PCP - General Family Practice 02/01/12 04/12/17 documented as of this encounter
--- OUTSIDE RECORDS SUMMARY | 2022-08-22 07:01 | XMS_ITS | Encounter Summary ---
:1940 Author Organization [place] Address [facility] [place] [address] Care Team Providers Name Role Phone Unavailable Primary Care Provider Unavailable Encounter Details Date Type Department Care Team Description 10/13/2004 Operative Report Lesvia Serrato MD (Vision Care Associate) MPLS RADIATION O NCOLOGY [address] [place] [address] (Wo rk) Social History Tobacco Use Types Packs/Day Years Used Date Smoking Tobacco: Never Alcohol Use Standard Drinks/Week Comments Yes 0 (1 standard drink = 0.6 oz pure alcoho l) Sex Assigned at Date Recorded Not on file documented as of this encounter Miscellaneous Notes Op Note - Lesvia Serrato - 10/15/2004 12:00 AM FILM PAINTER 1st ASS'T: 2nd ASS'T: PRE-OPERATIVE DIAGNOSIS: POST-OPERATIVE DIAGNOSIS: 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 Mr. Radha Villa is a [id number] with a diagnosis of right eye choroidal [...] cGy. LESVIA SERRATO MD MT: [email or web address] Document: [id number] [place], [place] Name: RADHA VILLA OPERATIVE REPORT Page 2 of 1 LCN: EYE DSC: 10/13/2004 [place], [place] Name: RADHA VILLA MR#: : Procedure Date: -86 1940 10/13/2004 Surgeon: LESVIA SERRATO MD OPERATIVE REPORT Page 1 of 1 PAINTER documented in this encounter Plan of Treatment Upcoming Encounters Date Type Specialty Care Team Description 08/31/2022 Appointment Respiratory Therapy Timothy Smith MD [address] [place] [id number] (Wo rk) 09/28/2022 Lab Lab 09/28/2022 Office Visit Cardiology Timothy Smith MD [address] [place] [phone] Trudi Grayson APRN ENGAGEMENT ENGINEER [address] [id number] 11/16/2022 Ancillary Procedure Cardiology Timothy Smith MD [address] [place] [id number] (Wo rk) documented as of this encounter Visit Diagnoses Not on filedocumented in this encounter
--- OUTSIDE RECORDS SUMMARY | 2022-08-22 07:01 | XMS_ITS | Encounter Summary ---
:1940 Author Organization [place] Address [facility] [address] Care Team Providers Name Role Phone Unavailable Primary Care Provider Unavailable Reason for Visit Reason Comments RECHECK Would like to have some lab work done. Encounter Details Date Type Department Care Team Description 04/[facility]/2004 [facility] MIXED HYPERLIPIDEMIA; [facility] [place] XXX RESIGNED XXX OTHER PSORIASIS [address] [place] [address] [place] [address] [place] [phone] (Wo rk) Social History Tobacco Use [...] MD [address] [place] [id number] (Fiorella olvera) 09/28/2022 Lab Lab 09/28/2022 Office Visit Cardiology Timothy Smith MD [address] [place] [id number] Trudi Grayson APRN SNAKER TRACTOR DRIVER [address] [id number] 11/16/2022 Ancillary Procedure Cardiology Timothy Smith MD [address] [place] [phone] (Fiorella olvera) documented as of this encounter [...] CDT) athologist Signature Cholesterol 184 <200 mg/dL [facility] Comment: Cholesterol Reference Range: <200 ??The NCEP recommends further ? evaluation of: ? 1. ??Patients with cholesterol ? greater than 200 mg/dL ? if additional risk facto rs ? are present. ? 2. ??All patients with a ? cholesterol greater than ? 240 mg/dL. Triglycerides 172 (H) <150 mg/dL [facility] HDL Cholesterol 37 (L) >40 mg/dL [facility] LDL Cholesterol Calculated 113 0 - 129 mg/dL [facility] VLDL-Cholesterol 34 (H) 0 - 30 mg/dL [facility] Cholesterol/HDL Ratio 5.0 0.0 - 5.0 [facility] Specimen Anatomical Collection Method Collection Time Receive d Time (Source) Location / / Volume Laterality 04/25/2004 9:47 AM 4 9:52 CDT AM CDT Kannan Flores MD LABORATORY Performing Organization Address City/State/ZIP Code Phon e Number [address] [address] [facility] LAB (ABNORMAL) A.M.A. COMPREHENSIVE MET.PANEL (04/25/2004 9:47 AM CDT) athologist Signature Sodium 138 133 - 144 [facility] mmol/L CLINIC LAB Potassium 4.1 3.4 - 5.3 [facility] mmol/L CLINIC LAB Chloride 105 94 - 109 [facility]L [facility] Carbon Dioxide 28 20 - 32 [facility] mmol/L CLINIC LAB Anion Gap 5 (L) 6 - 17 [facility] mmol/L [facility]IC LAB Glucose 98 60 - 115 [facility] mg/dL [facility]INIC LAB Urea Nitrogen 22 7 - 30 [facility] mg/dL CLINIC LAB Creatinine 0.80 0.80 - [facility] 1.50 mg/dL CLINIC LAB GFR Estimate >80 >60 [facility] mL/min/1.7 CLINIC LAB m2 GFR Estimate If >80 >60 [facility] Black mL/min/1.7 CLINIC LAB m2 Calcium 9.0 8.5 - 10.4 [facility] mg/dL CLINIC LAB Bilirubin Total 0.5 0.2 - 1.3 [facility] mg/dL CLINIC LAB Albumin 3.7 3.2 - 4.5 [facility] g/dL [facility]IC LAB Protein Total 7.1 6.0 - 8.2 [facility] g/dL [facility]INIC LAB Alkaline 66 40 - 150 [facility] Phosphatase U/L CLINIC LAB ALT 52 0 - 70 U/L [facility] AST 40 0 - 55 U/L [facility] Specimen Anatomical Collection Method Collection Time Receive d Time (Source) Location / / Volume Laterality 04/25/2004 9:47 AM 9:52 CDT AM CDT Kannan Flores MD LABORATORY Performing Organization Address City/State/ZIP Code Phon e Number [facility] [address] [place] [address] [facility] documented in this encounter Visit Diagnoses Diagnosis Mixed hyperlipidemia Other psoriasis documented in this encounter
--- OUTSIDE RECORDS SUMMARY | 2022-08-22 07:01 | XMS_ITS | Encounter Summary ---
:1940 Author Organization [place] Address [facility] [place] [place] [address] Care Team Providers Name Role Phone Unavailable Primary Care Provider Unavailable Reason for Visit Reason Comments RECHECK having radiation tx for eye ca.-needing lab work Encounter Details Date Type Department Care Team Description 08/31/2004 Office Visit [facility] Kannan Flores MD [facility] XXX RESIGNED XXX ENCOUNTER--DISREGARD [address] [place] [address] (Primary Dx) [place] [address] [place] [phone] (Wo rk) Social History Tobacco Use Types Packs/Day Years Used Date Smoking Tobacco: Never Alcohol Use Standard Drinks/Week Comments Yes 0 (1 standard drink = 0.6 oz pure alcoho l) Sex Assigned at Date Recorded Not on file documented as of this encounter Last Filed Vital Signs Vital Sign Reading Time Taken Comments Blood Pressure 128/90 08/31/2004 9:55 AM AUTOMOTIVE AIRCONDITIONING MECHANIC Pulse 62 08/31/2004 9:55 AM AUTOMOTIVE AIRCONDITIONING MECHANIC Temperature - - Respiratory Rate - - Oxygen Saturation - - Inhaled Oxygen Concentration - - Weight 139.3 kg (307 lb) 08/31/2004 9:55 AM AUTOMOTIVE AIRCONDITIONING MECHANIC Height - - Body Mass Index - [...] MD [address] [place] [id number] (Wo rk) 09/28/2022 Lab Lab 09/28/2022 Office Visit Cardiology Timothy Smith MD [address] [place] [address] Trudi Grayson APRN LUNG SPLITTER [address] [address] 11/16/2022 Ancillary Procedure Cardiology Timothy Smith MD [address] [place] [id number] (Wo wade) documented as of this encounter Visit Diagnoses Diagnosis ERRONEOUS ENCOUNTER--DISREGARD - Primary documented in this encounter
--- OUTSIDE RECORDS SUMMARY | 2022-08-22 07:01 | XMS_ITS | Encounter Summary ---
:1940 Author Organization [place] Address [address] [place] [address] Care Team Providers Name Role Phone Nas Cardenas MD Primary Care Provider Unavailable Encounter Details Date Type Department Care Team Description 02/01/2012 Historic Results [facility] Heart Unknown, [facility] [address] [facility] [address] [place] [phone] Social History Tobacco Use Types Packs/Day Years Used Date Smoking Tobacco: Never Alcohol Use Standard Drinks/Week Comments Yes 0 (1 standard drink = 0.6 oz pure alcoho l) Sex Assigned at Date Recorded Not on file documented as of this encounter Plan of Treatment Upcoming Encounters Date Type Specialty Care Team Description 08/31/2022 Appointment Respiratory Therapy Timothy Smith MD [address] [place] [phone] (Wo rk) 09/28/2022 Lab Lab 09/28/2022 Office Visit Cardiology Timothy Smith MD [address] [place] [phone] Trudi Grayson APRN CNP [address] [id number] 11/16/2022 Ancillary Procedure Cardiology Timothy Smith MD [address] [place] [phone] (Wo rk) documented as of this encounter [...] filedocumented in this encounter Care Teams Social Welfare Research Worker Relationship Specialty Start Date End Date Nas Cardenas MD PCP - General Family Practice 02/01/12 04/12/17 documented as of this encounter
--- OUTSIDE RECORDS SUMMARY | 2022-08-22 07:01 | XMS_ITS | Encounter Summary ---
:1940 Author Organization [place] Address [address] [place] [address] Care Team Providers Name Role Phone Nas Cardenas MD Primary Care Provider Unavailable Encounter Details Date Type Department Care Team Description 02/02/2012 Historic Results [facility] Unknown, [facility] [address] [facility] [address] [place] [phone] Social History Tobacco Use Types Packs/Day Years Used Date Smoking Tobacco: Never Alcohol Use Standard Drinks/Week Comments Yes 0 (1 standard drink = 0.6 oz pure alcoho l) Sex Assigned at Date Recorded Not on file documented as of this encounter Plan of Treatment Upcoming Encounters Date Type Specialty Care Team Description 08/31/2022 Appointment Respiratory Therapy Timothy Smith MD [address] [place] [id number] (Wo rk) 09/28/2022 Lab Lab 09/28/2022 Office Visit Cardiology Timothy Smith MD [address] [place] [id number] Trudi Grayson APRN CNP [address] [id number] 11/16/2022 Ancillary Procedure Cardiology Timothy Smith MD [address] [place] [id number] (Wo rk) documented as of this encounter [...] on filedocumented in this encounter Care Teams Test Driller Relationship Specialty Start Date End Date Nas Cardenas MD PCP - General Family Practice 02/01/12 04/12/17 documented as of this encounter
--- OUTSIDE RECORDS SUMMARY | 2022-08-22 07:01 | XMS_ITS | Encounter Summary ---
:1940 Author Organization [place] Address [facility]ly [facility] [place] [address] Care Team Providers Name Role Phone Unavailable Primary Care Provider Unavailable Encounter Details Date Type Department Care Team Description 10/13/2004 Historic Marketing Research Intern INTERFACED REPORT Dasha Gonzalez MD [facility] [address] [facility] [address] [place], [place] [address] (Wo rk) Social History Tobacco Use Types Packs/Day Years Used Date Smoking Tobacco: Never Alcohol Use Standard Drinks/Week Comments Yes 0 (1 standard drink = 0.6 oz pure alcoho l) Sex Assigned at Date Recorded Not on file documented as of this encounter Progress Notes Dasha Gonzalez MD - 09/06/2011 4:57 AM CONVEYOR SYSTEM DISPATCHER 1st ASS'T: Sabino Ceja 2nd ASS'T: PRE-OPERATIVE [...] condition. DASHA GONZALEZ MD MT: taj Document: [id number] CC: DASHA GONZALEZ MD [place], [place] Name: RADHA FAROOQ OPERATIVE REPORT Page 2 of 2 LCN: EYE DSC: 10/13/2004 [place], [place] Name: RADHA FAROOQ MR#: : Procedure Date: -86 1940 10/13/2004 Surgeon: DASHA GONZALEZ MD OPERATIVE REPORT Page 1 of 2 EYOR SYSTEM DISPATCHER documented in this encounter Plan of Treatment Upcoming Encounters Date Type Specialty Care Team Description 08/31/2022 Appointment Respiratory Therapy Timothy Smith MD [address] [place] [phone] (Wo rk) 09/28/2022 Lab Lab 09/28/2022 Office Visit Cardiology Timothy Smith MD [address] [place] [id number] Trudi Grayson APRN MARKET BASKET MAKER [address] [id number] 11/16/2022 Ancillary Procedure Cardiology Timothy Smith MD [address] [place] [phone] (Wo rk) documented as of this encounter Visit Diagnoses Not on filedocumented in this encounter
--- OUTSIDE RECORDS SUMMARY | 2022-08-22 07:01 | XMS_ITS | Encounter Summary ---
:1940 Author Organization [place] Address [address] [facility] [place] [address] Care Team Providers Name Role Phone Unavailable Primary Care Provider Unavailable Reason for Visit Reason Comments [employer] - INTRODUCTION [facility] FOR SENIOR MEMBER Encounter Details Date Type Department Care Team Description 11/12/2003 Telephone [place] PHYSICIAN Stephon Stone [employer] [facility] - ASSOC[facility]ATES - CARE PHYSICIAN INTRODUCTI ON ([facility] SENIOR MEMBER) [address] [place] [address] [place] [phone] Social History Tobacco Use Types Packs/Day Years Used Date Smoking Tobacco: Never Assessed Sex Assigned at Date Recorded Not on file documented as of this encounter Miscellaneous Notes Telephone Encounter - 11/12/2003 11:59 PM CORE ANALYST >> AMANDA STONE Wed Dec 09, 2003 [...] member, and as follow up to his [facility] score of 0.239. No answer, did not leave a message, will require a return call at a later time. Amanda Stone, RN Case Ma lee MICHELLE documented in this encounter Plan of Treatment Upcoming Encounters Date Type Specialty Care Team Description 08/31/2022 Appointment Respiratory Therapy Timothy Smith MD [address] [place] [id number] (Wo rk) 09/28/2022 Lab Lab 09/28/2022 Office Visit Cardiology Timothy Smith MD [address] [place] [phone] Trudi Grayson APRN CNP [address] [id number] 11/16/2022 Ancillary Procedure Cardiology Timothy Smith MD [address] [place] [id number] (Wo rk) documented as of this encounter Visit Diagnoses Not on filedocumented in this encounter
--- OUTSIDE RECORDS SUMMARY | 2022-08-22 07:01 | XMS_ITS | Encounter Summary ---
:1940 Author Organization [place] Address [facility] [place] [address] Care Team Providers Name Role Phone Unavailable Primary Care Provider Unavailable Encounter Details Date Type Department Care Team Description 08/06/2004 Allied Health/Nurse Health [facility] FOR INFLUENZA Visit Clinic [place] [address] [place] [address] Social History Tobacco Use Types [...] MD [address] [place] [phone] (Wo rk) 09/28/2022 Lab Lab 09/28/2022 Office Visit Cardiology Timothy Smith MD [address] [place] [id number] Trudi Grayson APRN MEDICAL CODING INSTRUCTOR [address] [phone] 11/16/2022 Ancillary Procedure Cardiology Timothy Smith MD [address] [place] [phone] (Wo rk) documented as of this encounter Visit Diagnoses Diagnosis Need for prophylactic vaccination and in oculation against influenza documented in this encounter
--- NOTE | 2022-08-22 08:33 | W.ANESCHARGE ---
Anesthesia Charges Start Date/Time Anesthesia Start Date: 08/22/22 Anesthesia Start Time: 07:57 Stop Date/Time Anesthesia Stop Date: 08/22/22 Anesthesia Stop Time: 08:28 Summary Emergency: No Extremes of Age: Over 68-CPT [id number]
== END 2022-08-22 06:49 | disposition home or self-care (01) ==
LOC: OP CLINIC 06:49
PROVIDERS: PCP Family Medicine; Visit Provider Surgery
DX: K22.89 Other specified disease of esophagus (principal); K92.2 Gastrointestinal hemorrhage, unspecified; K22.70 Barrett's esophagus without dysplasia
CPT/HCPCS: 00731; 43239; 88305; 99100; J2704

== ENCOUNTER 2022-09-12 08:59 | Outpatient (CLI) | payer MEDICARE, BC, SELFPAY ==
--- OUTSIDE RECORDS SUMMARY | 2022-09-12 09:14 | XMS_ITS ---
:1940 Author Care Team Providers Name Role Phone HEIDE AKINS MD Primary Care Provider [phone] Allergies Code Code System Name Reaction Severity Status Onset NKDA ? Medications Name Status Start Date Stop Date ? ? acyclovir 400 mg tablet Active ? Not avai lable TAKE ONE TABLET BY MOUTH THREE TIMES A DAY NEEDED FOR COLD S ORES. amiodarone 200 mg tablet Active ? Not joseph ilable amoxicillin 875 mg tablet Active ? Not av ailable TAKE ONE TABLET BY MOUTH TWICE A DAY amoxicillin 875 mg-potassium clavulanate 125 mg tablet Completed ? 09/07/2022 atorvastatin 20 mg tablet Active ? Not av ailable bumetanide 2 mg tablet Active ? Not avail able TAKE ONE TABLET BY MOUTH EVERY DAY celecoxib 200 mg capsule Completed ? 022 TAKE ONE CAPSULE BY MOUTH TWICE A DAY WITH MEALS Contour Next Test Strips Active ? Not joseph ilable USE TO TEST BLOOD SUGAR ONCE DAILY Eliquis 2.5 mg tablet Active ? Not availa ble fenofibrate 160 mg tablet Active ? Not av ailable TAKE ONE TABLET BY MOUTH EVERY DAY WITH FOOD fluticasone propionate 50 mcg/actuation nasal spray,suspension C ompleted ? 09/07/2022 APPLY TWO SPRAYS INTO EACH AFFECTED NOSTRIL EVERY DAY furosemide 40 mg tablet Active ? Not avai lable glimepiride 2 mg tablet Active ? Not avai lable hydrocodone 5 mg-acetaminophen 325 mg tablet Completed ? 09/07/2022 TAKE ONE-HALF TO ONE TABLET BY MOUTH EVERY 6 HOURS NEEDED levothyroxine 50 mcg tablet Active ? Not available metformin 500 mg tablet Completed ? 09/07/20 22 metolazone 2.5 mg tablet Active ? Not joseph ilable TAKE ONE TABLET BY MOUTH EVERY MON, WED, SUNDAY metoprolol succinate ER 25 mg tablet,extended release 24 Active ? Not available hr metoprolol succinate ER 50 mg tablet,extended release 24 Complet ed ? 09/07/2022 hr omeprazole 20 mg capsule,delayed release Active ? Not available TAKE ONE CAPSULE BY MOUTH TWICE A DAY BEFORE MEALS tamsulosin 0.4 mg capsule Active ? Not av ailable TAKE ONE CAPSULE BY MOUTH EVERY DAY tramadol 50 mg tablet Active ? Not availa ble TAKE ONE TABLET BY MOUTH THREE TIMES A DAY NEEDED FOR PAIN Problems Name Status Onset Date Source ? Mass of Urinary Bladder Active 09/07/2022 ? Lower Urinary Tract Symptoms Due to Benign Prostatic Active 09/07/2022 ? Hypertrophy Procedures None recorded. Results Lab Results Date Name Specimen Result Interpretation Description Value Range Status Address ? 09/07/2022 Urinalysis, ? Color-Status Yellow ? ? [facility] [address], [place] ? ? ? Clarity-Status Clear ? ? [facility] [address], [place] ? ? ? pH-Status 6.5 ? ? [facility]: [address], [place] Past Encounters Encounter Date Diagnosis Provider 09/07/2022 Nocturia; Lower Urinary Tract Felice Novak MD: Symptoms Due to Benign Prostatic [address], [place], Hypertrophy; [place] [phone], Ph. Bladder Social History Tobacco Smoking Status Never Smoker Vaccine List None recorded. Plan of Care Reminders Provider Appointments None recorded. ? ? Lab None recorded. ? ? Referral None recorded. ? ? Procedures None recorded. ? ? Surgeries None recorded. ? ? Imaging None recorded. ? ? Vitals Height Weight BMI 5 ft 11 in 239 lbs 33.3 kg/m2
--- OUTSIDE RECORDS SUMMARY | 2022-09-12 09:14 | XMS_ITS | Clinical Summary ---
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 Stage 3a [...] - ocular 10/12/2016 Coronary artery disease involving manzanita coronary tiago ry of manzanita heart 02/11/2016 without angina pectoris Lumbar foraminal [...] Encounters Date Type Specialty Care Team Description 08/22/2022 Lab Requisition Michelle Pillai MD 07/05/2022 Refill Slava Hernandez PA Refil l Request (acyclovir) from Last 3 Months Immunizations Name Administration Dates Next Due COVID-19 vaccine (Reframe It 12/04/2020, 11/13/2020 30mcg/0.3mL) PF, MDV Influenza Virus, [...] Date Smoking Tobacco: Never Smokeless Tobacco: Never Tobacco Cessation: Counseling Given: Yes Alcohol Use [...] Completed 10/18/2015, 05/02, 07/07/2005, Additional history exists Procedures Procedure Name Priority Date/Time Associated Diagnosis Comme nts LAB TRACKING EVENT Routine 08/22/2022 8:14 AM LITHOGRAPHER HELPER PATH TISSUE EXAM Routine 08/22/2022 8:14 AM Resul ts for this LITHOGRAPHER HELPER procedure are i n the results section. from Last 3 Months Results LAB TRACKING EVENT (08/22/2022 8:14 AM LITHOGRAPHER HELPER) Specimen Anatomical Collection Method Collection Time Receive d Time (Source) Location / / Volume Laterality Other (Other) Client Collect / 08/22/2022 8:14 AM 08/02 9:05 Unknown LITHOGRAPHER HELPER PM LITHOGRAPHER HELPER Michelle Pillai MD LAB BILL ONLY Performing Organization Address City/State/ZIP Code Phon e Number [facility] [address] [place] [address] LABORATORY-CENTRAL 1999 LABORATORY PATH TISSUE EXAM (08/22/2022 8:14 AM LITHOGRAPHER HELPER) Component Value Ref Test Analysis Performed At [facility] gist Range Method Time Signature Case Report Pathology Report ?Case: [id number] ? 08/25/2022 [facility] Authorizing Provider: ??Michelle Lemus MD ??Collected: ? 08/22/2022 0814 ? 1:56 PM HEALTH Ordering Location: ? [facility] CENTRAL LAB ?Received: ?08/23/2022 0803 ? GUILLAUME PRUITT Pathologist: ? Mathew Momin MD ? ENTRAL Specimens: ?? A) - Pyloric ? LABORATORY ? B) - Stom ach Biopsy ? C) - Dist al Esophagus Biopsy ? Final A) STOMACH, PYLORIC, BIOPSY: 08/25/2022 [facility] Electronically Diagnosis 1. Reactive gastropathy, endoscopically erosive (see c omment) 1:56 PM HEALTH signed by ?? a. Sampling: Antrum LITHOGRAPHER HELPER Mathew Zaragoza ?? b. Distribution: Antrum EN WALI Talavera MD on 2. Negative for inflammation, atrophy and Helicobacter LABORATORY 08/25/2022 at 1:56 PM B) STOMACH, BIOPSY: 1. Mild reactive gastropathy, endoscopically erosive (see co mment) ?? a. Sampling: Antrum ?? b. Distribution: Antrum 2. 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 Background of normal squamous esophageal mucosa Comment A,B) The likely etiology is an ongoing non-inflammatory type mucosal injury due to a chemical type of injury; this may be due to ingestion of non- steroidal anti-inflammatory drugs, aspirin (via prostagl 08/25/2022 [facility] andin-mediated injury), exce ss alcohol, corticosteroids, or bile/alkaline reflux, the latter usually in the setting of a gastroenteric anastomosis. 1:56 PM HEALTH LITHOGRAPHER HELPER LABORATORY-C C) Specimen C was seen in consultation with Drs. Samantha Noonan. ENTRAL LABORATORY Clinical 81-year-old male 08/25/2022 [facility] Information undergoes EGD for 1:56 PM HEALTH follow-up of LITHOGRAPHER HELPER LABORATORY-C Canales's ENTRAL esophagus. LABORATORY Gross A) Received in formalin is a bush mucosal fragment measuring 2 mm in greatest dimension, which is entirely submitted in one cassette. It is labeled with the patient's name and designated gastric prepyloric erosion. 08/25/2022 [facility] Description 1:56 PM HEALTH B) Received in formalin is a bush mucosal fragment measuring 3 mm in greatest dimension, which is entirely submitted in one cassette. It is labeled with the patient's name and designated random stomach. LITHOGRAPHER HELPER LABORATORY-C ENTRAL C) Received in formalin are 3 bush mucosal fragments averaging 3 mm in greatest dimension, which are entirely submitted in one cassette. It is labeled with the patient's name and designated distal esophagus. LABORATORY Monica Jo 08/23/2022 10:52 AM Microscopic The final 08/25/2022 [facility] Description diagnosis is 1:56 PM HEALTH based on LITHOGRAPHER HELPER LABORATORY-C microscopic ENTRAL examination of LABORATORY appropriate sections of all specimens. Additional 08/25/2022 [facility] Information Interpreted at [facility], Central Laboratory - [address], [place] [address] 1:56 PM HEALTH LITHOGRAPHER HELPER LABORATORY-C ENTRAL LABORATORY Specimen (Source) Anatomical Collection Method Collection Time Re ceived Time Location / / Volume Laterality Other (Pyloric) 08/22/2022 8:14 8:03 AM LITHOGRAPHER HELPER AM LITHOGRAPHER HELPER Specimen 08/22/2022 8:14 08/23/2022 8 :03 (specimen) AM LITHOGRAPHER HELPER AM LITHOGRAPHER HELPER (Stomach Biopsy) Specimen 08/22/2022 8:14 08/23/2022 8 :03 (specimen) AM LITHOGRAPHER HELPER AM LITHOGRAPHER HELPER (Distal Esophagus Biopsy) Michelle Pillai MD PATHOLOGY/CYTOLOGY Performing Organization Address City/State/ZIP Code Phon e Number [facility] [address] [place] [address] LABORATORY-CENTRAL 2000 LABORATORY from Last 3 Months Insurance Payer Benefit Plan / Subscriber ID Effective Dates Phone Addre ss Type Group MEDICARE PART B MEDICARE PART B [id number] 2003-Prese ATTN: CLAIMS - HB USE ONLY HB ONLY nt [address] [place] [address] MEDICARE PART A MEDICARE PART A [id number] 2003-Prese ATTN: CLAIMS - HB USE ONLY HB ONLY nt [address] [place] [address] BLUE CROSS BLUE CROSS [id number] 2016-[place] [address] [address] [place], [place] ONLY [id number] BLUE CROSS MR BLUE CROSS [id number] 2016-Presen [address] [address] [place], [place] [id number] [facility] Health/Tamiko Other 10/01/2000 [address] [facility] [place] (Work) [address] [place] [address] Advance Directives Latest Code Status on File Code Status Date Activated Date Inactivated Comments Full Code 02/22/2022 2:53 PM 03/02/2022 1:31 PM Question Answer Comments Code Status Discussion: Reviewed Preferences Code Status History Code Status Date Activated Date Inactivated Comments Full Code 02/21/2022 4:37 PM 02/22/2022 2:53 PM Question Answer Comments Code Status Discussion: Unable to Assess Preferences, Provid er to review later
--- OUTSIDE RECORDS SUMMARY | 2022-09-12 09:14 | XMS_ITS | Encounter Summary ---
:1940 Author Care Team Providers Name Role Phone Juan José Licona MD Primary Care Provider [phone] Reason for Visit BPH Assessment and Plan Assessment Note 81M with possible bladder mass. BPH wit h LUTS. 1) Bladder mass - review of CT and cystoscopy today conf irm this is an intravesical median lobe of the prostate - there is no bladder tumor - this needs no specific follow-up 2) BPH/LUTS - continue tamsulosin 0.4 mg daily; he i s satisfied with this and empties well - consider adding finasteride if worseni ng obstruction 1. Nocturia ? urinalysis, dipstick 2. Lower urinary tract symptoms due to benign prostatic hypertrophy 3. Mass of urinary bladder Discussion Note: None recorded.Patient educational handouts: No information available. Plan of Care Reminders Provider Appointments None recorded. ? ? Lab Urinalysis, Dipstick 09/07/2022 [facility] Referral None recorded. ? ? Procedures None recorded. ? ? Surgeries None recorded. ? ? Imaging None recorded. ? ? Medications Name Start Date ? ? acyclovir 400 mg tablet ? TAKE ONE TABLET BY MOUTH THREE TIMES A DAY NEEDED FOR COLD SORES. amiodarone 200 mg tablet ? TAKE ONE TABLET BY MOUTH EVERY DAY amoxicillin 875 mg tablet ? TAKE ONE TABLET BY MOUTH TWICE A DAY atorvastatin 20 mg tablet ? TAKE ONE TABLET BY MOUTH EVERY DAY bumetanide 2 mg tablet ? TAKE ONE TABLET BY MOUTH EVERY DAY Contour Next Test Strips ? USE TO TEST BLOOD SUGAR ONCE DAILY Eliquis 2.5 mg tablet ? fenofibrate 160 mg tablet ? TAKE ONE TABLET BY MOUTH EVERY DAY WITH FOOD furosemide 40 mg tablet ? glimepiride 2 mg tablet ? levothyroxine 50 mcg tablet ? metolazone 2.5 mg tablet ? TAKE ONE TABLET BY MOUTH EVERY MON, WED, SUNDAY metoprolol succinate ER 25 mg tablet,extended release 24 hr ? omeprazole 20 mg capsule,delayed release ? TAKE ONE CAPSULE BY MOUTH TWICE A DAY BEFORE MEALS tamsulosin 0.4 mg capsule ? TAKE ONE CAPSULE BY MOUTH EVERY DAY tramadol 50 mg tablet ? TAKE ONE TABLET BY MOUTH THREE TIMES A DAY NEEDED FOR PAIN Medications Administered None recorded. Vitals Height Weight BMI 5 ft 11 in 239 lbs 33.3 kg/m2 Results Lab Results Date Name Specimen Result Interpretation Description Value Range Status Address ? 09/07/2022 Urinalysis, ? Color-Status Yellow ? ? [facility]: [address], [place] ? ? ? Clarity-Status Clear ? ? [facility] [address], [place] ? ? ? pH-Status 6.5 ? ? [facility] [address], [place] Allergies Code Code System Name Reaction Severity Onset NKDA ? ? ? Problems Name Status Onset Date Source ? Mass of Urinary Bladder Active 09/07/2022 ? Lower Urinary Tract Symptoms Due to Benign Prostatic Active 09/07/2022 ? Hypertrophy Procedures None recorded. Vaccine List None recorded. Social History Tobacco Smoking Status Never Smoker What was the date of your most recent tobacco screening? 05/2022 Functional Status Unknown. Past Encounters Encounter Date Diagnosis Provider 09/07/2022 Nocturia; Lower Urinary Tract Felice Novak MD: Symptoms Due to Benign Prostatic [address], [place], Hypertrophy; [place] [address], Ph. Bladder History of Present Illness Note: <div>81M with possible bladder mass</div><div>
</div><div>Renal u/s done by nephrology for CKD. This showed mass at bladder base vs prostate. CT then done to eval further. </div><div>
</div><div>Denies hematuria. No prior AUR or procedures. </div><div>
</div><div>LUTS: FOS, on tamsulosin x year s, stable </div><div>
</div><div>Cr 2.2</div><div>
</div><div>UA today neg</div><div>PVR today 51 ml</div><div>
</div><div>CT Urogram (07/26/22): BPH with prostate effect on bladder, tiny left renal AML, no hydro, no suspicious lesions, + abd wall hernia</div><div>
</div><div>PMH: CAD, HL, ocular melanoma, DM2, CKD, edema</div><div>PSH: CABG, RIHR </div><div>
</div><div>SocHx:</div><div>Tob: never</d iv><div>
</div><div>FamHx: no prostate ca or bladder ca</div>< div>
</div><div>
</div> Review of Systems ? Comprehensive General Adult ROS Reported By: Patient Genitourinary: Genitourinary: no incontinen ce, no difficulty urinating; frequency Physical Exam ? Notes: <div>General: No acute distr ess, well developed/well nourished</div><div>HEENT: C onjunctiva clear, extraocular movements intact, normocephalic/atraumatic</di v><div>Resp: Respirations nonlabored, no audible wheeze, symmetric</div><div> Abd: protuberant</div><div>Skin: no plaques or lesions</div><div>Neuro: CN intact, normal sensation</div><div>Psych: normal mood and affect</div><div><b r></div><div>
</div>
--- OUTSIDE RECORDS SUMMARY | 2022-09-12 09:14 | XMS_ITS | Clinical Summary ---
:1940 Author Organization [place] Address [address] 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 Last Filed Vital Signs Vital Sign Reading Time Taken Comments Blood Pressure 132/66 08/16/2022 2:46 PM USER SUPPORT ANALYST SUPERVISOR Pulse 68 08/16/2022 2:46 PM USER SUPPORT ANALYST SUPERVISOR Temperature 36.6 ??C (97.9 ??F) 07/04/2021 12:03 PM CDT Respiratory Rate 16 07/04/2021 4:00 PM CDT Oxygen Saturation 95% 02/08/2022 3:14 PM CDT Inhaled Oxygen Concentration - - Weight 114 kg (251 lb 4.8 oz) 08/16/2022 2:46 PM USER SUPPORT ANALYST SUPERVISOR Height 174 cm (5' 8.5) 08/16/2022 2:46 PM USER SUPPORT ANALYST SUPERVISOR Body Mass Index 37.65 08/16/2022 2:46 PM USER SUPPORT ANALYST SUPERVISOR Plan of Treatment Upcoming Encounters Date Type Specialty Care Team Description 09/28/2022 Lab Lab 09/28/2022 Office Visit Cardiology Timothy Smith MD [address] [place] [id number] Trudi Grayson, FLACO STRAP BUCKLER MACHINE [address] [address] 11/16/2022 Ancillary Procedure Cardiology Timothy mSith MD [address] [place] [id number] (Wo rk) Health Maintenance Due Date Last [...] this topic Medical Devices Implanted Type Area Student Services Rep Device Shelf Model / Identifier Expiration Serial / Date Lot [facility]cd [facility] Df4 - [id number] ICD [place] 09/09/2021 D432 / Implanted: Qty: 1 on 07/04/[address] [facility] [place] [id number] / [id number] Lead Wires- Right Atrium-02/04/2016 Lead Wires- [facility] [employer] MED[employer] L [id number] / Implanted: 02/04/2016 by Timothy Smith MD (Quantity not on file) R ight Atrium INC [id number] / Explanted: 07/04/2021 (Quantity not on file) Lead Wires- Right Ventricle-02/04/2016 Lead Wires- [employer] MED ICAL [id number]-58 / Implanted: 02/04/2016 by Timothy Smith MD (Quantity not on file) Right INC [id number] / Explanted: 07/04/2021 (Quantity not on file) Ventricle Lead Velva [employer]ak Df4 Af 59 Cm 271 - [id number] Leads [place] 04/07/2023 027 / Implanted: Qty: 1 on 07/04/[address] [facility] [employer] [place] [id number] / [id number] Pacemaker-Dino Sci Pacemaker [address] L121 / Implanted: 02/04/2016 by Timothy Smith MD (Quantity not on file) [employer] [place] [id number] / Explanted: 07/04/2021 (Quantity not on file) Procedures Procedure Name Priority Date/Time Associated Diagnosis Comme nts EKG 12-LEAD COMPLETE Routine 08/16/2022 4:09 Paroxysmal Resu lts for this W/READ - CLINICS PM USER SUPPORT ANALYST SUPERVISOR ventricular procedure a re in tachycardia the results section. ICD DEVICE PROGRAMMING Routine 08/16/2022 2:50 Sustained VT Re sults for this EVAL, SINGLE LEAD ICD PM USER SUPPORT ANALYST SUPERVISOR (ventricular proced ure are in tachycardia) the results Paroxysmal section. ventricular tachycardia Cardiac pacemaker in situ XR CHEST 2 VIEWS Routine 08/11/2022 3:08 Paroxysmal Results for this PM USER SUPPORT ANALYST SUPERVISOR ventricular procedure are i n tachycardia the results section. TSH Routine 08/11/2022 2:41 Persistent atrial Results for this PM USER SUPPORT ANALYST SUPERVISOR fibrillation (H) procedure a re in the results section. BASIC METABOLIC PANEL Routine 08/11/2022 2:41 Paroxysmal Res ults for this PM USER SUPPORT ANALYST SUPERVISOR ventricular procedure are i n tachycardia the results section. HEPATIC FUNCTION PANEL Routine 08/11/2022 2:41 Paroxysmal Re sults for this PM USER SUPPORT ANALYST SUPERVISOR ventricular procedure are i n tachycardia the results section. INTERROGATION DEVICE Routine 06/26/2022 12:55 Cardiac pacemake r in Results for this EVAL REMOTE ICD UP TO AM CDT situ proced ure are in 90 the results section. from Last 3 Months Results EKG 12-lead complete w/read (Future)- to be scheduled (08/16/2022 4:09 PM USER SUPPORT ANALYST SUPERVISOR) Narrative This result has an attachment that is no t available. Timothy Smith MD ECG ORDERABLES ICD DEVICE PROGRAMMING EVAL, SINGLE LEAD ICD (08/16/2022 2:50 PM USER SUPPORT ANALYST SUPERVISOR) Component Value Ref Test Analysis Performed Pathologis t Range Method Time At Signature Date Time MEDTR[employer]IC Interrogation Session Implantable [place] [employer] Pulse Generator Student Services Rep Implantable D432 RESONATE EL MEDTRONIC Pulse Generator ICD Model Implantable [id number] MEDTRONIC Pulse Generator Serial Number Type In Clinic MEDTRONIC Interrogation Session Clinic Name Lizandro Ernandez [employer]IC Implantable Defibrillator MEDTRONIC Pulse Generator Type Implantable [id number] MEDTRONIC Pulse Generator Implant Date Implantable Lead [place] [employer] Student Services Rep Implantable Lead 0272 Velva MEDTRONIC Model 4-Site S Implantable Lead [id number] MED[employer]ONIC Serial Number Implantable Lead [id number] MEDTRONIC [...] MEDTRONIC Setting Pacing Pulse Width Lead Channel 2.2 V MEDTRONIC Setting Pacing Amplitude Lead Channel [...] 400.0 ms [employer]TRONIC Detection Interval Lead Channel 465.0 ohm MEDTRONIC Impedance Value Lead Channel 14.2 mV MEDTRONIC Sensing Intrinsic Amplitude Lead Channel 1.0000 V MEDTRONIC Pacing Threshold Amplitude Lead Channel 0.4 ms MEDTRONIC Pacing Threshold Pulse Width Battery Status Beginning of MEDTRONIC Service Capacitor Charge Reformation [employer]IC Type Capacitor Last SunJul 26 [employer]TRONIC Charge Date Time 21:15:02 CDT 2021 Capacitor Charge 8.763 MEDTRONIC Time Capacitor Charge Shock MEDTRONIC Type Capacitor Charge 6.793 MEDTRONIC Time Capacitor Charge 41.0 J MEDTRONIC Energy Therapy 6 MEDTRONIC Statistic Total Shocks Delivered Therapy 0 MEDTRONIC Statistic Total Shocks Aborted Therapy 34 MEDTRONIC Statistic Total ATP Delivered Therapy MEDTRONIC Statistic Total Date Time End Therapy 6 MEDTRONIC Statistic Recent Shocks Delivered Therapy 0 MEDTRONIC Statistic Recent Shocks Aborted Therapy 26 MEDTRONIC Statistic Recent ATP Delivered Therapy SunAug 24 MEDTRONIC Statistic Recent 05:17:49 USER SUPPORT ANALYST SUPERVISOR 2020 Date Time Start Therapy [id number] MEDTRONIC Statistic Recent Date Time End Episode 681 MEDTRONIC Statistic Total Count Episode VT MEDTRONIC Statistic Type Category Episode NSVT MEDTRONIC Statistic Vendor Type Category Episode 20 MEDTRONIC Statistic Total Count Episode VF MEDTRONIC Statistic Type Category Episode VF MEDTRONIC Statistic Vendor Type Category Episode 2 MEDTRONIC Statistic Total Count Episode [id number] MEDTRONIC Statistic Type Category Episode [id number] MEDTRONIC Statistic Total Date Time End Episode [id number] MEDTRONIC Statistic Total Date Time End Episode [id number] MEDTRONIC Statistic Total Date Time End Episode 203 MEDTRONIC Statistic Recent Count Episode VT MEDTRONIC Statistic Type Category Episode NSVT MEDTRONIC Statistic Vendor Type Category Episode 15 MEDTRONIC Statistic Recent Count Episode VF MEDTRONIC Statistic Type Category Episode VF MEDTRONIC Statistic Vendor Type Category Episode 1 MEDTRONIC Statistic Recent Count Episode [id number] MEDTRONIC Statistic Type Category Episode SunAug 24 MEDTRONIC Statistic Recent 05:17:49 USER SUPPORT ANALYST SUPERVISOR 2020 Date Time Start Episode [id number] MEDTRONIC Statistic Recent Date Time End Episode SunAug 24 MEDTRONIC Statistic Recent 05:17:49 USER SUPPORT ANALYST SUPERVISOR 2020 Date Time Start Episode [id number] [employer]TRONIC Statistic Recent Date Time End Episode SunAug 24 MEDTRONIC Statistic Recent 05:17:49 USER SUPPORT ANALYST SUPERVISOR 2020 Date Time Start Episode [id number] [employer]TRONIC Statistic Recent Date Time End Anatomical Region Laterality Modality Other Specimen (Source) Anatomical Location Collection Method / Collectio n Time Received Time / Laterality Volume 08/16/2022 Narrative 08/23/2022 2:06 PM USER SUPPORT ANALYST SUPERVISOR [place] [employer] Resonate (S) ICD Device Check Patient seen in clinic for device evalua tion and iterative programming. CLOTHES PRESSER: 4% Mode: VVIR 50-130 Underlying Rhythm: AF 60-80's bpm Heart Rate: Histogram shows good variabi lity with rates primarily 5100's bpm Sensing: WNL Pacing Threshold: WNL Impedance: WNL Battery Status: Estimated 13.5 years Device Site: well healed Atrial Arrhythmia: 0 Ventricular Arrhythmia: 0 ATP: 0 Shocks: 0 Setting Change: None Care Plan: Pt is scheduled for a visit w daniel Smith today and his remote device check has been scheduled for 11/16. ??SIENNA Domingo/PSchultz, RN I have reviewed and interpreted the agustín ce interrogation, settings, programming and nurse's summary. The dev ice is functioning within normal device parameters. I agree with the curr ent findings, assessment and plan. Timothy Smith MD CV CARDIAC SERVICES ORDERABL ES XR Chest 2 Views (08/11/2022 3:08 PM USER SUPPORT ANALYST SUPERVISOR) Anatomical Region Laterality Modality Chest Radio Fluoroscopy Specimen (Source) Anatomical Location Collection Method / Collectio n Time Received Time / Laterality Volume Impressions 08/11/2022 4:27 PM USER SUPPORT ANALYST SUPERVISOR IMPRESSION: There are no acute infiltrates. The cardiac silhouette is not enlarged. Pulmonary vasculature is u nremarkable. VALERIANO FITZGERALD MD Narrative 08/11/2022 4:27 PM USER SUPPORT ANALYST SUPERVISOR CHEST TWO VIEWS 08/11/2022 3:08 PM HISTORY: [...] ORDER ANN (ABNORMAL) TSH (08/11/2022 2:41 PM USER SUPPORT ANALYST SUPERVISOR) P athologist Signature TSH 72.13 (H) 0.30 - 4.20 08/11/2022 [facility] uIU/mL 3:22 PM USER SUPPORT ANALYST SUPERVISOR Specimen Anatomical Collection Method / Collection Time Recei chikis Time (Source) Location / Volume Laterality Blood STRUCTURE OF LEFT Venipuncture / 08/11/2022 2:41 08/11 2:46 UPPER LIMB / Unknown PM USER SUPPORT ANALYST SUPERVISOR PM USER SUPPORT ANALYST SUPERVISOR Unknown Timothy Smith MD LAB - BLOOD ORDERABLES Performing Organization Address City/State/ZIP Code Phon e Number [facility] [place] [address] Care [facility] [address] Lab (1st floor, no room number) (ABNORMAL) Hepatic panel (08/11/2022 2:41 PM USER SUPPORT ANALYST SUPERVISOR) [facility] Method Time Signature Protein Total 7.8 6.4 - 8.3 08/11/2022 LABORATORY g/dL 3:16 PM USER SUPPORT ANALYST SUPERVISOR Albumin 4.1 3.5 - 5.2 08/11/2022 [facility] g/dL 3:16 PM USER SUPPORT ANALYST SUPERVISOR Bilirubin Total 0.7 <=1.2 08/11/2022 [facility] mg/dL 3:16 PM USER SUPPORT ANALYST SUPERVISOR Alkaline 52 40 - 129 08/11/2022 [facility] Phosphatase U/L 3:16 PM USER SUPPORT ANALYST SUPERVISOR AST 30 10 - 50 08/11/2022 [facility] U/L 3:16 PM USER SUPPORT ANALYST SUPERVISOR ALT 15 10 - 50 08/11/2022 [facility] U/L 3:16 PM USER SUPPORT ANALYST SUPERVISOR Bilirubin Direct 0.35 (H) 0.00 - 08/11/2022 [facility] Y 0.30 3:16 PM USER SUPPORT ANALYST SUPERVISOR mg/dL Specimen Anatomical Collection Method / Collection Time Recei chikis Time (Source) Location / Volume Laterality Blood STRUCTURE OF LEFT Venipuncture / 08/11/2022 2:41 08/11 2:46 UPPER LIMB / Unknown PM USER SUPPORT ANALYST SUPERVISOR PM USER SUPPORT ANALYST SUPERVISOR Unknown Timothy Smith MD LAB - BLOOD ORDERABLES Performing Organization Address City/State/ZIP Code Phon e [place] [id number] Care [facility] [address] Lab (1st floor, no room number) (ABNORMAL) Basic metabolic panel (08/11/2022 2:41 PM USER SUPPORT ANALYST SUPERVISOR) [facility] Method Time Signature Sodium 142 136 - 145 08/11/2022 LABORATORY mmol/L 3:16 PM USER SUPPORT ANALYST SUPERVISOR Potassium 4.3 3.4 - 5.3 08/11/2022 LABORATORY mmol/L 3:16 PM USER SUPPORT ANALYST SUPERVISOR Chloride 98 98 - 107 08/11/2022 LABORATORY mmol/L 3:16 PM USER SUPPORT ANALYST SUPERVISOR Carbon Dioxide 34 (H) 22 - 29 08/11/2022 LABORATORY (CO2) mmol/L 3:16 PM USER SUPPORT ANALYST SUPERVISOR Anion Gap 10 7 - 15 08/11/2022 LABORATORY mmol/L 3:16 PM USER SUPPORT ANALYST SUPERVISOR Urea Nitrogen 58.6 (H) 8.0 - 23.0 08/11/2022 LABORATORY mg/dL 3:16 PM USER SUPPORT ANALYST SUPERVISOR Creatinine 2.29 (H) 0.67 - 08/11/2022 LABORATORY 1.17 mg/dL 3:16 PM USER SUPPORT ANALYST SUPERVISOR Calcium 9.5 8.8 - 10.2 08/11/2022 LABORATORY mg/dL 3:16 PM USER SUPPORT ANALYST SUPERVISOR Glucose 150 (H) 70 - 99 08/11/2022 LABORATORY mg/dL 3:16 PM USER SUPPORT ANALYST SUPERVISOR GFR Estimate 28 (L) >60 08/11/2022 LABORATORY mL/min/1.7 3:16 PM USER SUPPORT ANALYST SUPERVISOR 3m2 Comment: Effective September 20, 2021 eGF Rcr in adults is calculated using the 2020 CKD-EPI creatinine equation which includ es age and gender (Humberto et al., NEJ, DOI: 10.1056/NSKAjq3553432) Specimen Anatomical Collection Method / Collection Time Recei chikis Time (Source) Location / Volume Laterality Blood STRUCTURE OF LEFT Venipuncture / 08/11/2022 2:41 08/11 2:46 UPPER LIMB / Unknown PM USER SUPPORT ANALYST SUPERVISOR PM USER SUPPORT ANALYST SUPERVISOR Unknown Timothy Smith MD LAB - BLOOD ORDERABLES Performing Organization Address City/State/ZIP Code Phon e [place] [address] Care Lab [address] Lab (1st floor, no room number) INTERROGATION DEVICE EVAL REMOTE ICD UP TO 90 (06/26/2022 12:55 AM CDT) Component Value Ref Test Analysis Performed Pathologis t Range Method Time At Signature Date Time [id number] [employer] Interrogation Session Implantable [place] [employer] Pulse Generator Student Services Rep Implantable D432 RESONATE EL [employer]TRONIC Pulse Generator ICD Model Implantable [id number] MEDTRONIC Pulse Generator Serial Number Type Remote MEDTR[employer]IC Interrogation Session Clinic Name [facility] [employer]IC Implantable Defibrillator MEDTRONIC Pulse Generator Type Implantable [id number] MEDTRONIC Pulse Generator Implant Date Implantable Lead [place] [employer] Student Services Rep Implantable Lead 0272 Velva MEDTRONIC Model 4-Site S Implantable Lead 573134 MEDTRONIC Serial Number Implantable Lead [id number] MEDTRONIC Implant Date Implantable Lead Bipolar Lead [...] Charge 41 J MEDTRONIC Energy Brandon Statistic [id number] MEDTRONIC Date Time Start Brandon Statistic [id number] MEDTRONIC Date Time End Brandon Statistic 3 % MEDTRONIC RV Percent Paced Therapy 6 MEDTRONIC Statistic Recent Shocks Delivered Therapy 0 MEDTRONIC Statistic Recent Shocks Aborted Therapy 26 MEDTRONIC Statistic Recent ATP Delivered Therapy [id number] MEDTRONIC Statistic Recent Date Time Start Therapy [id number] MEDTRONIC Statistic Recent Date Time End Therapy 6 MEDTRONIC Statistic Total Shocks Delivered Therapy 0 MEDTRONIC Statistic Total Shocks Aborted Therapy 34 MEDTRONIC Statistic Total ATP Delivered Therapy [id number] MEDTRONIC Statistic Total Date Time End Episode [...] VT-1 MEDTRONIC Statistic Vendor Type Category Episode [id number] [employer]TRONIC Statistic Recent Date Time Start Episode [id number] MEDTRONIC Statistic Recent Date Time End Episode [id number] MEDTRONIC Statistic Recent Date Time Start Episode [id number] MEDTRONIC Statistic Recent Date Time End Episode [id number] MEDTRONIC Statistic Recent Date Time Start Episode [id number] MEDTRONIC Statistic Recent Date Time End Episode [id number] MEDTRONIC Statistic Recent Date Time Start Episode [id number] MEDTRONIC Statistic Recent Date Time End Episode [id number] MEDTRONIC Statistic Recent Date Time Start Episode [id number] MEDTRONIC Statistic Recent Date Time End Episode APM-195 MEDTRONIC Identifier Episode Type Periodic EGM MEDTRONIC Category Episode Date [id number] MEDTRONIC Time Episode [id number]-[id number] MEDTRONIC Identifier Episode Type Other MEDTRONIC Category Episode Date MEDTRONIC Time Anatomical Region Laterality Modality Other Specimen (Source) Anatomical Collection Method Collection Time Re ceived Time Location / / Volume Laterality 06/26/2022 12:55 AM CDT Narrative 06/27/2022 11:01 AM CDT [place] [employer] Resonate (S) ICD Remote Device Check CLOTHES PRESSER: 3% Mode: VVIR 50-130 ppm Presenting Rhythm: [...] / Subscriber ID Effective Phone Address T [facility] Group Dates MEDICARE MEDICARE FOR HB [id number] 2003-Pres [phone] ATTN CLAIMS Medicare SUPPLEMENT ent 40 [address] [place] [address] BCBS BCBS [place] [id number] 2016-Prese [phone] [address] [address] PPO BLUE nt [address] [place] [address] (Home) [place] [phone] (Work) Advance Directives For more information, please contact: [phone] Latest Code Status on File Code Status Date Activated Date Inactivated Comments Full Code 02/04/2016 9:52 AM 07/04/2021 11:49 AM Code Status History Code Status Date Activated Date Inactivated Comments Full Code 02/02/2016 9:20 PM 02/04/2016 9:52 AM Full Code 02/01/2012 2:37 PM 02/04/2012 6:[address] Referee Relationship Specialty Start Date End Date Graham Licona MD PCP - General Family Medicine 06/30/21 [facility] [address] [place] [address] Timothy Smith MD Assigned Heart and Vascular 07/23/20 [address] Provider [place] [id number]
--- OUTSIDE RECORDS SUMMARY | 2022-09-12 09:15 | XMS_ITS | Encounter Summary ---
:1940 Author Organization [place] Address [address] [place] [address] Care Team Providers Name Role Phone Timothy Smith MD Unavailable Graham Licona MD Primary Care Provider Reason for Visit Reason Onset Date Comments fax clearance 02/14/2022 Needs cardiac cleara nce for 02/21/22 surgery Encounter Details Date Type Department Care Team Description 02/14/2022 Telephone [facility] Heart Zarina Smith MD fax clearance (Needs [facility] [place] [address] cardiac clearance for [address] 02/21/22 surgery) [facility] [address] [place] [address] [place] [phone] Social History Tobacco Use Types Packs/Day Years [...] 02/14/2022 4:23 PM CDT Second request from [facility] for cardiac clearance letter requested to be faxed [phone]. Fax sent. JNelsonRN Telephone Encounter - Temitope Tamayo RN - 02/14/2022 2:14 PM CDT Faxed over to [facility] signed letter from Dr Smith that patient is cleared for hip surgery scheduled for 02/21. Signed letter sent to [facility] to scan. SIENNA Okeefe Telephone Encounter - Timothy Smith MD - 02/14/2022 1:13 PM CDT YES Telephone Encounter - Anel Corado - 02/14/2022 9:41 AM CDT [facility] Call Center Phone Message May a detailed message be left on voicemail: yes Reason for Call: Other: [facility] calling in stating that pt is having hip surgery on 02/21/22 and they are needing a letter for cardiac clearance faxed over to them at [phone]. Action Taken: Message routed to: Other: [facility] Travel Screening: Not Applicable documented in this encounter Plan of Treatment Upcoming Encounters Date Type Specialty Care Team Description 09/28/2022 Lab Lab 09/28/2022 Office Visit Cardiology Timothy Smith MD [address] [place] [address] Trudi Grayson APRN PRODUCTION CLOTH CUTTER [address] [address] 11/16/2022 Ancillary Procedure Cardiology Timothy Smith MD [address] [place] [id number] (Wo rk) documented as of this encounter Visit Diagnoses Not on filedocumented in this encounter Care Teams Comb Setter Relationship Specialty Start Date End Date Graham Licona MD PCP - General Family Medicine 06/30/21 [facility] [address] [place] [address] Timothy Smith MD Assigned Heart and Vascular 07/23/[address] Provider [place] [id number] documented as of this encounter
--- OUTSIDE RECORDS SUMMARY | 2022-09-12 09:15 | XMS_ITS | Encounter Summary ---
:1940 Author Organization [place] Address [address] [place] [address] Care Team Providers Name Role Phone Timothy [...] No / Unsu re 08/11/2022 2:36 PM SALES SERVICE SUPERVISOR someone who was confirmed or suspected to have Coronavirus/COVID-19? documented as of this encounter Plan of Treatment Upcoming Encounters Date Type Specialty Care Team Description 09/28/2022 Lab Lab 09/28/2022 Office Visit Cardiology Timothy Smith MD [address] [place] [phone] Trudi Grayson APRN GALVAN[employer]ER [employer] [address] [address] 11/16/2022 Ancillary Procedure Cardiology Timothy Smith MD [address] [place] [phone] (Wo rk) documented as of this encounter Visit Diagnoses Not on filedocumented in this encounter Care Teams Historic Sites Supervisor Relationship Specialty Start Date End Date Graham Licona MD PCP - General Family Medicine 06/30/21 [facility] [address] [place] [address] Timothy Smith MD Assigned Heart and Vascular 07/23/20 [address] Provider [place] [address] documented as of this encounter
--- OUTSIDE RECORDS SUMMARY | 2022-09-12 09:15 | XMS_ITS | Encounter Summary ---
:1940 Author Organization [place] Address [address] [facility] [place] [address] Care Team Providers Name Role Phone Timothy [...] No / Unsu re 08/16/2022 2:19 PM TRAVELING SECRETARY someone who was confirmed or suspected to have Coronavirus/COVID-19? documented as of this encounter Plan of Treatment Upcoming Encounters Date Type Specialty Care Team Description 09/28/2022 Lab Lab 09/28/2022 Office Visit Cardiology Timothy Smith MD [address] [place] [phone] Trudi Grayson APRN ELECTRONIC DEVELOPMENT TECHNICIAN [address] [address] 11/16/2022 Ancillary Procedure Cardiology Timothy Smith MD [address] [place] [phone] (Wo rk) documented as of this encounter Visit Diagnoses Not on filedocumented in this encounter Care Teams System Developer Associate Manager Relationship Specialty Start Date End Date Graham Licona MD PCP - General Family Medicine 06/30/21 [facility] [address] [place] [address] Timothy Smith MD Assigned Heart and Vascular 07/23/20 [address] Provider [place] [address] documented as of this encounter
--- OUTSIDE RECORDS SUMMARY | 2022-09-12 09:15 | XMS_ITS | Encounter Summary ---
:1940 Author Organization [place] Address [address] [facility] [place] [address] Care Team Providers Name Role Phone Timothy Smith MD Unavailable Graham Licona MD Primary Care Provider Encounter Details Date Type Department Care Team Description 08/03/2022 [facility] Heart FelixLacy, O n amiodarone therapy Clinic Patt EL (Primary Dx) [address] [facility] [address] [place] [address] Social [...] 09/28/2022 Office Visit Cardiology Timothy Smith MD [address] [place] [id number] Trudi Grayson APRN SURGICAL SCRUB TECH [address] [id number] 11/16/2022 Ancillary Procedure Cardiology Timothy Smith MD [address] [place] [address] (Wo rk) Scheduled Orders Name Type Priority Associated Diagnoses Order S demetrice General PFT Lab (Please PFT Routine On amiodarone the rapy Expected: 01/31/2023 always keep checked) (Approx imate), Expires: 08/03/2023 Pulmonary Function Test PFT Routine On amiodarone the rapy Expected: 08/10/2022 (Approximate), Expires: 08/03/2023 documented as of this encounter Visit Diagnoses Diagnosis On amiodarone therapy - Primary documented in this encounter Care Teams Monogram Machine Operator Relationship Specialty Start Date End Date Graham Licona MD PCP - General Family Medicine 06/30/21 [facility] [address] [place] [address] Timothy Smith MD Assigned Heart and Vascular 07/23/[address] Provider [place] [address] documented as of this encounter
--- OUTSIDE RECORDS SUMMARY | 2022-09-12 09:15 | XMS_ITS | Encounter Summary ---
:1940 Author Organization [place] Address [address] [facility] [place] [address] Care Team Providers Name Role Phone Timothy Smith MD Unavailable Graham Licona MD Primary Care Provider Encounter Details Date Type Department Care Team Description 01/30/2022 [facility] Sandrine Whitman bryn [facility] Heart Care [address] [facility] [address] [place] [address] Social History Tobacco Use Types [...] were not included. Alert received from patients [employer] single chamber ICD for ATP therapy [...] V rates of 180-190bpm. Patient presented to [facility] on 01/27/22 after receiving shocks from [...] [address] [place] 288615 Trudi Grayson, [employer] HUC [address] [address] 11/16/2022 Ancillary Procedure Cardiology Timothy Smith MD [address] [place] [address] (Wo rk) documented as of this encounter Visit Diagnoses Diagnosis Sustained VT (ventricular tachycardia) - Primary Paroxysmal ventricular tachycardia documented in this encounter Care Teams Mechanical Planner Relationship Specialty Start Date End Date Graham Licona MD PCP - General Family Medicine 06/30/[address] [facility] [address] [place] [address] Timothy Smith MD Assigned Heart and Vascular 07/23/20 [address] Provider [place] [id number] documented as of this encounter
--- OUTSIDE RECORDS SUMMARY | 2022-09-12 09:15 | XMS_ITS | Encounter Summary ---
:1940 Author Organization [employer] Address [address] [facility] [place] [address] Care Team Providers Name Role Phone Timothy Smith MD Unavailable Graham Licona MD Primary Care Provider Encounter Details Date Type Department Care Team Description 03/06/2022 [facility] Keyshawn Myers RN [facility] Heart [address] [place] [address] Social History Tobacco Use Types [...] [address] [place] [id number] Trudi Grayson, FLACO ENVIRONMENTAL PROTECTION ECONOMIST [address] [id number] 11/16/2022 Ancillary Procedure Cardiology Timothy Smith MD [address] [place] [id number] (Wo rk) documented as of this encounter Visit Diagnoses Not on filedocumented in this encounter Care Teams Supervisor Conditioning Yard Relationship Specialty Start Date End Date Graham Licona MD PCP - General Family Medicine 06/30/21 [facility] [address] [place] [address] Timothy Smith MD Assigned Heart and Vascular 07/23/20 [address] Provider [place] [id number] documented as of this encounter
--- OUTSIDE RECORDS SUMMARY | 2022-09-12 09:15 | XMS_ITS | Encounter Summary ---
:1940 Author Organization [place] Address [address] [facility] [place] [address] Care Team Providers Name Role Phone Timothy Smith MD Unavailable Graham Licona MD Primary Care Provider Reason for Referral Consultation (Routine: Next available opening) - Pending Review Specialty Diagnoses / Procedures Referred By Contact Refer red To Contact Cardiovascular Disease Diagnoses Paroxysmal ventricular tachycardia Timothy Smith MD [address] [place] [address] Referral ID Status Reason Start Date Expiration Date Visits V isits Requested Authorized [id number] Pending 02/08/2022 02/08/2023 1 1 Review iagnostic Imaging XR (Routine) - Pending Review Specialty Diagnoses / Procedures Referred By Contact Refer red To Contact Diagnoses Paroxysmal ventricular tachycardia Timothy Smith MD Procedures XR Chest [address] [place] [address] Referral ID Status Reason Start Date Expiration Date Visits V isits Requested Authorized [id number] Pending 02/08/2022 02/08/2023 1 1 Review Reason for Visit Reason Comments Annual Visit Annual f/up (Routine) - Closed Specialty Diagnoses / Procedures Referred By Contact Refer red To Contact Diagnoses Sustained VT (ventricular tachycardia) Timothy Smith MD [address] [place] [address] Referral ID Status Reason Start Date Expiration Date Visits Requ ested Visits Authorized [id number] Closed 03/23/2021 03/23/2022 1 1 Encounter Details Date Type Department Care Team Description 02/08/2022 Office Visit [facility] Timothy Smith MD Persistent atrial fibrillation (H) (Prim arnie Dx); Heart Clinic [address] Paroxysmal ventricular tachycardia (H) [place] [address] [address] [place], [place] [address] [address] [place], [place] (Work) [address] Social History Tobacco [...] 6 months. cc: Juan José Licona MD [facility] [address] [place] [address] Timothy Smith MD MT: angela Name: RADHA VILLA Account: [id number] : 1940 Service Date: 02/08/2022 Document: [id number] Timothy Smith MD - 02/08/2022 3:15 PM [...] Chris De Leon MD; Location: HEART CARDIAC SHOVE UP ??? EP PACEMAKER 02/04/2016 [facility] ??? HC [...] Oriented x 3 CC Timothy Smith MD [address] [place] [address] documented in this encounter Plan of Treatment Upcoming Encounters Date Type Specialty Care Team Description 09/28/2022 Lab Lab 09/28/2022 Office Visit Cardiology Timothy Smith MD [address] [place] 270995 Trudi Grayson APRN ASSEMBLY LEADER [address] [id number] 11/16/2022 Ancillary Procedure Cardiology Timothy Smith MD [address] [place] [address] (Wo rk) Scheduled Orders Name Type Priority [...] (Future)- to be scheduled (08/16/2022 4:09 PM WHEELABRATOR OPERATOR) Narrative This result has an attachment that is no t available. Timothy Smith MD ECG ORDERABLES XR Chest 2 Views (08/11/2022 3:08 PM WHEELABRATOR OPERATOR) Anatomical Region Laterality Modality Chest Radio Fluoroscopy Specimen (Source) Anatomical Location Collection Method / Collectio n Time Received Time / Laterality Volume Impressions 08/11/2022 4:27 PM WHEELABRATOR OPERATOR IMPRESSION: There are no acute infiltrates. The cardiac silhouette is not enlarged. Pulmonary vasculature is u nremarkable. VALERIANO FITZGERALD MD Narrative 08/11/2022 4:27 PM WHEELABRATOR OPERATOR CHEST TWO VIEWS 08/11/2022 3:08 PM HISTORY: [...] ORDER ANN (ABNORMAL) TSH (08/11/2022 2:41 PM WHEELABRATOR OPERATOR) P athologist Signature TSH 72.13 (H) 0.30 - 4.20 08/11/2022 [facility] uIU/mL 3:22 PM WHEELABRATOR OPERATOR Specimen Anatomical Collection Method / Collection Time Recei chikis Time (Source) Location / Volume Laterality Blood STRUCTURE OF LEFT Venipuncture / 08/11/2022 2:41 08/11 2:46 UPPER LIMB / Unknown PM WHEELABRATOR OPERATOR PM WHEELABRATOR OPERATOR Unknown Timothy Smith MD LAB - BLOOD ORDERABLES Performing Organization Address City/State/ZIP [place] [address] Care Lab [address] Lab (1st floor, no room number) (ABNORMAL) Basic metabolic panel (08/11/2022 2:41 PM WHEELABRATOR OPERATOR) Patholo gist Method Time Signature Sodium 142 136 - 145 08/11/2022 LABORATORY mmol/L 3:16 PM WHEELABRATOR OPERATOR Potassium 4.3 3.4 - 5.3 08/11/2022 LABORATORY mmol/L 3:16 PM WHEELABRATOR OPERATOR Chloride 98 98 - 107 08/11/2022 LABORATORY mmol/L 3:16 PM WHEELABRATOR OPERATOR Carbon Dioxide 34 (H) 22 - 29 08/11/2022 LABORATORY (CO2) mmol/L 3:16 PM WHEELABRATOR OPERATOR Anion Gap 10 7 - 15 08/11/2022 LABORATORY mmol/L 3:16 PM WHEELABRATOR OPERATOR Urea Nitrogen 58.6 (H) 8.0 - 23.0 08/11/2022 LABORATORY mg/dL 3:16 PM WHEELABRATOR OPERATOR Creatinine 2.29 (H) 0.67 - 08/11/2022 LABORATORY 1.17 mg/dL 3:16 PM WHEELABRATOR OPERATOR Calcium 9.5 8.8 - 10.2 08/11/2022 LABORATORY mg/dL 3:16 PM WHEELABRATOR OPERATOR Glucose 150 (H) 70 - 99 08/11/2022 LABORATORY mg/dL 3:16 PM WHEELABRATOR OPERATOR GFR Estimate 28 (L) >60 08/11/2022 LABORATORY mL/min/1.7 3:16 PM WHEELABRATOR OPERATOR 3m2 Comment: Effective September 20, 2021 eGF Rcr in adults is calculated using the 2020 CKD-EPI creatinine equation which includ es age and gender (Copier And Printer Field Technician et al., NEJ, DOI: 10.1056/SUCJfj7669124) Specimen Anatomical Collection Method / Collection Time Recei chikis Time (Source) Location / Volume Laterality Blood STRUCTURE OF LEFT Venipuncture / 08/11/2022 2:41 08/11 2:46 UPPER LIMB / Unknown PM WHEELABRATOR OPERATOR PM WHEELABRATOR OPERATOR Unknown Timothy Smith MD LAB - BLOOD ORDERABLES Performing Organization Address City/[facility]/ZIP Code [place] [phone] Care Lab [address] Lab (1st floor, no room number) (ABNORMAL) Hepatic panel (08/11/2022 2:41 PM WHEELABRATOR OPERATOR) [facility] gist Method Time Signature Protein Total 7.8 6.4 - 8.3 08/11/2022 [facility] g/dL 3:16 PM WHEELABRATOR OPERATOR Albumin 4.1 3.5 - 5.2 08/11/2022 [facility] g/dL 3:16 PM WHEELABRATOR OPERATOR Bilirubin Total 0.7 <=1.2 08/11/2022 [facility] mg/dL 3:16 PM WHEELABRATOR OPERATOR Alkaline 52 40 - 129 08/11/2022 [facility] Phosphatase U/L 3:16 PM WHEELABRATOR OPERATOR AST 30 10 - 50 08/11/2022 [facility] U/L 3:16 PM WHEELABRATOR OPERATOR ALT 15 10 - 50 08/11/2022 [facility] U/L 3:16 PM WHEELABRATOR OPERATOR Bilirubin Direct 0.35 (H) 0.00 - 08/11/2022 [facility] LABORATOR Y 0.30 3:16 PM WHEELABRATOR OPERATOR mg/dL Specimen Anatomical Collection Method / Collection Time Recei chikis Time (Source) Location / Volume Laterality Blood STRUCTURE OF LEFT Venipuncture / 08/11/2022 2:41 08/11 2:46 UPPER LIMB / Unknown PM WHEELABRATOR OPERATOR PM WHEELABRATOR OPERATOR Unknown Timothy Smith MD LAB - BLOOD ORDERABLES Performing Organization Address City/[facility]/ZIP Code [place] [phone] Care Lab [address] Lab (1st floor, no room number) [...] documented in this encounter Care Teams Medical Technologist Hematology Relationship Specialty Start Date End Date Graham Licona MD PCP - General Family Medicine 06/30/21 [facility] [address] [place] [address] Timothy Smith MD Assigned Heart and Vascular 07/23/20 [address] Provider [place] [address] documented as of this encounter
--- OUTSIDE RECORDS SUMMARY | 2022-09-12 09:15 | XMS_ITS | Encounter Summary ---
:1940 Author Organization [place] Address [address] [facility] [place] [address] Care Team Providers Name Role Phone Timothy [...] 09/28/2022 Office Visit Cardiology Timothy Smith MD [address] [place] [phone] Trudi Grayson APRN MORTGAGE COUNSELOR [address] [address] 11/16/2022 Ancillary Procedure Cardiology Timothy Smith MD [address] [place] [phone] (Wo rk) documented as of this encounter Visit Diagnoses Not on filedocumented in this encounter Care Teams Womens Health Nurse Practitioner Relationship Specialty Start Date End Date Graham Licona MD PCP - General Family Medicine 06/30/21 [facility] [address] [place] [address] Timothy Smith MD Assigned Heart and Vascular 07/23/20 [address] Provider [place] [address] documented as of this encounter
--- OUTSIDE RECORDS SUMMARY | 2022-09-12 09:15 | XMS_ITS | Encounter Summary ---
:1940 Author Organization [place] Address [address] [facility] [place] [address] Care Team Providers Name Role Phone Timothy Smith MD Unavailable Graham Licona MD Primary Care Provider Reason for Visit Reason Comments Medication Question Re eliquis dose Encounter Details Date Type Department Care Team Description 05/29/2022 Documentation Only [facility] Catherine Aranda edication Question Heart Clinic Patt Crenshaw LPN (Re eliquis dose) [address] [facility] [address] [place] [address] Social [...] [address] [place] [phone] Trudi Grayson APRN WAX SPECIALIST [address] [address] 11/16/2022 Ancillary Procedure Cardiology Timothy Smith MD [address] [place] [phone] (Wo rk) documented as of this encounter Visit Diagnoses Not on filedocumented in this encounter Care Teams Semiautomatic Taper Operator Relationship Specialty Start Date End Date Graham Licona MD PCP - General Family Medicine 06/30/21 [facility] [address] [place] [address] Timothy Smith MD Assigned Heart and Vascular 07/23/20 [address] Provider [place] [id number] documented as of this encounter
--- OUTSIDE RECORDS SUMMARY | 2022-09-12 09:15 | XMS_ITS | Encounter Summary ---
:1940 Author Organization [place] Address [address] [facility] [place] [address] Care Team Providers Name Role Phone Timothy [...] 09/28/2022 Office Visit Cardiology Timothy Smith MD [address] [place] [address] Trudi Grayson APRN FABRIC NORMALIZER [address] [phone] 11/16/2022 Ancillary Procedure Cardiology Timothy Smith MD [address] [place] 190715 (Wo rk) documented as of this encounter Visit Diagnoses Not on filedocumented in this encounter Care Teams Outdoor Education Teacher Relationship Specialty Start Date End Date Graham Licona MD PCP - General Family Medicine 06/30/[address] [facility] [address] [place] [address] Timothy Smith MD Assigned Heart and Vascular 07/23/20 [address] [facility] [address] Provider [place] [address] documented as of this encounter
--- OUTSIDE RECORDS SUMMARY | 2022-09-12 09:15 | XMS_ITS | Encounter Summary ---
:1940 Author Organization [place] Address [address] [place] [address] Care Team Providers Name Role Phone Timothy Smith MD Unavailable Graham Licona MD Primary Care Provider Reason for Referral CV Testing (Routine) - Pending Review Specialty Diagnoses / Procedures Referred By Contact Refer red To Contact Diagnoses Cardiac pacemaker in situ Timothy Smith MD Procedures Cardiac Device Check - Remote [address] [place] [address] Referral ID Status Reason Start Date Expiration Date Visits V isits Requested Authorized [id number] Pending 08/16/2022 08/16/2023 100 100 Review V Testing (Routine) - Pending Review Specialty Diagnoses / Procedures Referred By Contact Refer red To Contact Diagnoses Cardiac pacemaker in situ Timothy Smith MD Procedures Cardiac Device Check - In Clinic [address] [place] [address] Referral ID Status Reason Start Date Expiration Date Visits V isits Requested Authorized [id number] Pending 08/16/2022 08/16/2023 100 100 Review 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 SALES 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 Reason for Visit CV Testing (Routine) - Closed Specialty Diagnoses / Procedures Referred By Contact Refer red To Contact Diagnoses Cardiac pacemaker in situ Steven Canchola Procedures Cardiac Device Check - Remote (Standing ORD 4 count) [address] [place] [address] [place] [address] Referral ID Status Reason Start Date Expiration Date Visits Requ ested Visits Authorized [id number] Closed 03/20/2022 03/20/2023 100 100 Encounter Details Date Type Department Care Team Description 06/26/2022 Ancillary [facility] Steven Canchola Card iac pacemaker Procedure [facility] MD Jose in situ Heart Care [address] [facility] [address] [facility] [address] [place] [address] [place] [phone] (Wo rk) [address] [phone] Social History Tobacco Use Types Packs/Day Years [...] [address] [place] [phone] rTudi Grayson APRN CNP [address] [place] [address] 11/16/2022 Ancillary Procedure Cardiology Timothy Smith MD [address] [place] [id number] (Wo rk) Scheduled Orders Name Type Priority Associated Order Schedule Diagnoses Cardiac Device Implantable Cardiac Routine Cardiac pacemaker 1 00 Occurrences Check - In Clinic Device in situ starting 10/16/2021 until 2 Cardiac Device Implantable Cardiac [...] Range Method Time At Signature Date Time [id number] [employer] Interrogation Session Implantable [employer] Pulse Generator Buying Intern Implantable D432 RESONATE EL [employer] Pulse Generator ICD Model Implantable [id number] [employer] Pulse Generator Serial Number Type Remote [employer] Interrogation Session Clinic Name [facility] [employer] Implantable Defibrillator [employer] Pulse Generator Type Implantable [id number] [employer] Pulse Generator Implant Date Implantable Lead [employer] Buying Intern Implantable Lead [address] [place] [employer] Model 4-Site S Implantable Lead [id number] [employer] Serial Number Implantable Lead [id number] [employer] Implant Date Implantable Lead Bipolar Lead [...] [employer] Pacing Threshold Pulse Width Battery Date [id number] [employer] Time of Measurements Battery Status Beginning of [employer] Service Battery 174 mo [employer] Remaining Longevity Battery 100 % [employer] Remaining Percentage Capacitor Charge Reformation [employer] Type Capacitor Last [id number] [employer] Charge Date Time Capacitor Charge 8.8 s [employer] Time Capacitor Charge Shock [employer] Type Capacitor Last [id number] [employer] Charge Date Time Capacitor Charge 6.8 s [employer] Time Capacitor Charge 41 J [employer] Energy Brandon Statistic [id number] [employer] Date Time Start Brandon Statistic [id number] [employer] Date Time End Brandon Statistic 3 % [employer] RV Percent Paced Therapy 6 [employer] Statistic Recent Shocks Delivered Therapy 0 [employer] Statistic Recent Shocks Aborted Therapy 26 [employer] Statistic Recent ATP Delivered Therapy [id number] [employer] Statistic Recent Date Time Start Therapy [id number] [employer] Statistic Recent Date Time End Therapy 6 [employer] Statistic Total Shocks Delivered Therapy 0 [employer] Statistic Total Shocks Aborted Therapy 34 [employer] Statistic Total ATP Delivered Therapy 12791957525796 [employer] Statistic Total Date Time End Episode [...] VT-1 [employer] Statistic Vendor Type Category Episode [id number] [employer] Statistic Recent Date Time Start Episode [id number] [employer] Statistic Recent Date Time End Episode [id number] [employer] Statistic Recent Date Time Start Episode [id number] [employer] Statistic Recent Date Time End Episode [id number] [employer] Statistic Recent Date Time Start Episode [id number] [employer] Statistic Recent Date Time End Episode [id number] [employer] Statistic Recent Date Time Start Episode [id number] [employer] Statistic Recent Date Time End Episode [id number] [employer] Statistic Recent Date Time Start Episode [id number] [employer] Statistic Recent Date Time End Episode APM-195 [employer] Identifier Episode Type Periodic EGM [employer] Category Episode Date [id number] [employer] Time Episode RVAT-406 [employer] Identifier Episode Type Other [employer] Category Episode Date [id number] [employer] Time Anatomical Region Laterality Modality Other Specimen (Source) Anatomical Collection Method Collection Time Re ceived Time Location / / Volume Laterality 06/26/2022 12:55 AM CDT Narrative 06/27/2022 11:01 AM CDT [employer] Resonate (S) ICD Remote Device Check SHUTTLE FILLER: 3% Mode: VVIR 50-130 ppm Presenting Rhythm: [...] in this encounter Care Teams Public Health Aides Teacher Relationship Specialty Start Date End Date Graham Licona MD PCP - General Family Medicine 06/30/21 [facility] [address] [place] [address] Timothy Smith MD Assigned Heart and Vascular 07/23/20 [address] Provider [place] [address] documented as of this encounter
--- OUTSIDE RECORDS SUMMARY | 2022-09-12 09:15 | XMS_ITS | Encounter Summary ---
:1940 Author Organization [place] Address [address] [facility] [place] [address] Care Team Providers Name Role Phone Timothy Smith MD Unavailable Graham Licona MD Primary Care Provider Encounter Details Date Type Department Care Team Description 02/10/2022 [facility] Only [facility] Timothy Smith MD Paroxysmal ventricular Heart Clinic Patt [address] tachycardia (H) [address] (Primary Dx) [facility] [address] [place] [address] [place] [phone] Social History Tobacco Use Types Packs/Day Years [...] 09/28/2022 Office Visit Cardiology Timothy Smith MD [address] [place] 611[address] Trudi Grayson APRN DIAL SCREW ASSEMBLER [address] [id number] 11/16/2022 Ancillary Procedure Cardiology Timothy Smith MD [address] [place] [phone] (Wo rk) Scheduled Orders Name Type Priority [...] jing documented in this encounter Care Teams Pipe Fitter Street Service Relationship Specialty Start Date End Date Graham Licona MD PCP - General Family Medicine 06/30/21 [facility] [address] [place] [address] Timothy Smith MD Assigned Heart and Vascular 07/23/20 [address] Provider [place] [id number] documented as of this encounter
--- OUTSIDE RECORDS SUMMARY | 2022-09-12 09:15 | XMS_ITS | Encounter Summary ---
:1940 Author Organization [place] Address [address] [facility] [place] [address] Care Team Providers Name Role Phone Timothy Smith MD Unavailable Graham Licona MD Primary Care Provider Reason for Referral Consultation (Routine: Next available opening) - Pending Review Specialty Diagnoses / Procedures Referred By Contact Refer red To Contact Cardiovascular Disease Diagnoses Paroxysmal ventricular tachycardia Hypothyroidism due to medication Timothy Smith MD [address] [place] [address] Referral ID Status Reason Start Date Expiration Date Visits V isits Requested Authorized [id number] Pending 08/16/2022 08/16/2023 1 1 Review EYOR SYSTEM OPERATOR Reason for Visit Reason Comments Heart Problem paroxysmal VT Consultation (Routine: Next available opening) - Pending Review Specialty Diagnoses / Procedures Referred By Contact Refer red To Contact Cardiovascular Disease Diagnoses Paroxysmal ventricular tachycardia Timothy Smith MD [address] [place] [address] Referral ID Status Reason Start Date Expiration Date Visits V isits Requested Authorized [id number] Pending 02/08/2022 02/08/2023 1 1 Review Encounter Details Date Type Department Care Team Description 08/16/[address] 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 documented as of this encounter Last Filed Vital Signs Vital Sign Reading Time Taken Comments Blood Pressure 132/66 08/16/2022 2:46 PM CONVEYOR SYSTEM OPERATOR Pulse 68 08/16/2022 2:46 PM CONVEYOR SYSTEM OPERATOR Temperature - - Respiratory Rate - - Oxygen Saturation - - Inhaled Oxygen Concentration - - Weight 114 kg (251 lb 4.8 oz) 08/16/2022 2:46 PM CONVEYOR SYSTEM OPERATOR Height 174 cm (5' 8.5) 08/16/2022 2:46 PM CONVEYOR SYSTEM OPERATOR Body Mass Index 37.65 08/16/2022 2:46 PM CONVEYOR SYSTEM OPERATOR documented in this encounter Progress Notes Timothy [...] physician gradually in the future. cc: [place] [address] Timothy Smith MD MT: [email or web address] Name: RADHA VILLA Account: [id number] : 1940 Service Date: 08/16/2022 Document: [id number] EYOR SYSTEM OPERATOR Timothy Smith MD - 08/16/2022 3:15 PM CST HPI and Plan: See dictation Orders Placed This Encounter Procedures ??? TSH Orders Placed This Encounter Medications ??? fluticasone (FLONASE) 50 MCG/ACT nasal spray Sig: Stanton 1 spray into both nostrils daily ??? [...] obesity (H) ??? 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 fluticasone (FLONASE) 50 MCG/ACT nasal spray Stanton 1 spray into both nostrils daily ??? [...] Chris De Leon MD; Location: HEART CARDIAC TICKET SELLER ??? EP PACEMAKER 02/04/2016 [facility] ??? HC [...] MD [address] [place] [address] EYOR SYSTEM OPERATOR documented in this encounter Plan of Treatment Upcoming Encounters Date Type Specialty Care Team Description 09/28/2022 Lab Lab 09/28/2022 Office Visit Cardiology Timothy Smith MD [address] [place] [address] Trudi Grayson APRN PUBLIC RELATIONS STUDIES DIRECTOR [address] [address] 11/16/2022 Ancillary Procedure Cardiology Timothy Smith MD [address] [place] [id number] (Wo rk) Scheduled Orders Name Type Priority [...] Results f or this COMPLETE W/READ - CONVEYOR SYSTEM OPERATOR ventricular procedure are in CLINICS tachycardia the results section. 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
--- OUTSIDE RECORDS SUMMARY | 2022-09-12 09:15 | XMS_ITS | Encounter Summary ---
:1940 Author Organization [place] Address [address] [place] [address] Care Team Providers Name Role Phone Timothy [...] 2 count) [address] [place] [address] Referral ID Status Reason Start Date Expiration Date Visits V isits Requested Authorized [id number] Pending 05/04/2022 05/04/2023 10 10 Review Encounter Details Date Type Department Care Team Description 08/16/2022 Ancillary Procedure [facility] Timothy Smith MD Sustained VT (ventricular tachycardia); [facility] [address] Paroxysmal v entricular tachycardia; [place] [address] Cardiac pacemaker in situ [address] [employer] [place], [place] [address] [address] [place], [place] (Work) [address] Social History Tobacco Use [...] No / Unsu re 08/16/2022 2:19 PM POST MANAGER someone who was confirmed or suspected to have Coronavirus/COVID-19? documented as of this encounter Plan of Treatment Upcoming Encounters Date Type Specialty Care Team Description 09/28/2022 Lab Lab 09/28/2022 Office Visit Cardiology Timothy Smith MD [address] [place], [place] [address] Trudi Grayson APRN SCHEDULER MAINTENANCE [address] [place] [address] 11/16/2022 Ancillary Procedure Cardiology Timothy Smith MD [address] [place] [address] (Wo rk) documented as of this encounter Procedures Procedure Name Priority Date/Time Associated Diagnosis Comme nts ICD DEVICE Routine 08/16/2022 2:50 PM Sustained VT Results f or this PROGRAMMING EVAL, POST MANAGER (ventricular procedure are in SINGLE LEAD ICD tachycardia) the results Paroxysmal section. ventricular tachycardia Cardiac pacemaker in situ documented in this encounter Results ICD DEVICE PROGRAMMING EVAL, SINGLE LEAD ICD (08/16/2022 2:50 PM POST MANAGER) Component Value Ref Test Analysis Performed Pathologis t Range Method Time At Signature Date Time MEDTRONIC Interrogation Session Implantable [employer] [employer] MEDTRONIC Pulse Generator Inspector Integrated Circuits Implantable D432 RESONATE EL MEDTRONIC Pulse Generator ICD Model Implantable [id number] MEDTRONIC Pulse Generator Serial Number Type In Clinic MEDTRONIC Interrogation Session Clinic Name [facility] MEDTRONIC Implantable Defibrillator MEDTRONIC Pulse Generator Type Implantable [id number] MEDTRONIC Pulse Generator Implant Date Implantable Lead [employer] [employer] MEDTR ONIC Inspector Integrated Circuits Implantable Lead [address] [place] MEDTRONIC Model 4-Site S Implantable Lead [id number] MEDTRONIC Serial Number Implantable Lead [id number] MEDTRONIC Implant Date Implantable Lead Bipolar Lead [...] 34 MEDTRONIC Statistic Total ATP Delivered Therapy [id number] MEDTRONIC Statistic Total Date Time End Therapy 6 MEDTRONIC Statistic Recent Shocks Delivered Therapy 0 MEDTRONIC Statistic Recent Shocks Aborted Therapy 26 MEDTRONIC Statistic Recent ATP Delivered Therapy SunAug 24 MEDTRONIC Statistic Recent 05:17:49 POST MANAGER 2020 Date Time Start Therapy [id number] MEDTRONIC Statistic Recent Date Time End Episode 681 MEDTRONIC Statistic Total Count Episode VT MEDTRONIC Statistic Type Category Episode NSVT MEDTRONIC Statistic Vendor Type Category Episode 20 MEDTRONIC Statistic Total Count Episode VF MEDTRONIC Statistic Type Category Episode VF MEDTRONIC Statistic Vendor Type Category Episode 2 MEDTRONIC Statistic Total Count Episode VF_VT_MONITOR MEDTRONIC Statistic Type Category Episode [id number] MEDTRONIC Statistic Total Date Time End Episode [id number] MEDTRONIC Statistic Total Date Time End Episode [id number] MEDTRONIC Statistic Total Date Time End Episode 203 MEDTRONIC Statistic Recent Count Episode VT MEDTRONIC Statistic Type Category Episode NSVT MEDTRONIC Statistic Vendor Type Category Episode 15 MEDTRONIC Statistic Recent Count Episode VF MEDTRONIC Statistic Type Category Episode VF MEDTRONIC Statistic Vendor Type Category Episode 1 MEDTRONIC Statistic Recent Count Episode VF_VT_MONITOR MEDTRONIC Statistic Type Category Episode SunAug 24 MEDTRONIC Statistic Recent 05:17:49 POST MANAGER 2020 Date Time Start Episode [id number] MEDTRONIC Statistic Recent Date Time End Episode SunAug 24 MEDTRONIC Statistic Recent 05:17:49 POST MANAGER 2020 Date Time Start Episode [id number] MEDTRONIC Statistic Recent Date Time End Episode SunAug 24 MEDTRONIC Statistic Recent 05:17:49 POST MANAGER 2020 Date Time Start Episode [id number] MEDTRONIC Statistic Recent Date Time End Anatomical Region Laterality Modality Other Specimen (Source) Anatomical Location Collection Method / Collectio n Time Received Time / Laterality Volume 08/16/2022 Narrative 08/23/2022 2:06 PM POST MANAGER [employer] Resonate (S) ICD Device Check Patient seen in clinic for device evalua tion and iterative programming. NEONATOLOGIST: 4% Mode: VVIR 50-130 Underlying Rhythm: AF [...] device check has been scheduled for 11/16. ??Chayo RN/Holden RN I have reviewed and interpreted the [...] situ documented in this encounter Care Teams Custodian Supervisor Relationship Specialty Start Date End Date Graham Licona MD PCP - General Family Medicine 06/30/21 [facility] [address] [place] [address] Timothy Smith MD Assigned Heart and Vascular 07/23/20 [address] Provider [place] [id number] documented as of this encounter
--- OUTSIDE RECORDS SUMMARY | 2022-09-12 09:15 | XMS_ITS | Encounter Summary ---
:1940 Author Organization [place] Address [address] [facility] [place] [address] Care Team Providers Name Role Phone Timothy Smith MD Unavailable Graham Licona MD Primary Care Provider Encounter Details Date Type Department Care Team Description 12/09/2021 [facility] Keyshawn Myers RN [facility] Heart [address] [place] [address] Social History Tobacco Use Types Packs/Day Years Used Date Smoking Tobacco: Never Smokeless Tobacco: Never Alcohol Use Standard Drinks/Week Comments No 0 (1 standard drink = 0.6 oz pure alcoho l) Sex Assigned at Date Recorded Not on file COVID-19 Exposure Response Date Recorded In the last month, have you been in contact Unable to assess 12/02/2021 12:08 PM NOC TECHNICIAN with someone who was confirmed or suspected [...] diuretic dosage. Janny appreciative for the information. TECHNICIAN Telephone Encounter - Kitty Myers, RN - [...] Patient states understanding and agreement with plan. TECHNICIAN documented in this encounter Plan of Treatment Upcoming Encounters Date Type Specialty Care Team Description 09/28/2022 Lab Lab 09/28/2022 Office Visit Cardiology Timothy Smith MD [address] [place] [id number] Trudi Grayson, FLACO SURFBOARD DESIGNER [address] [address] 11/16/2022 Ancillary Procedure Cardiology Timothy Smith MD [address] [place] [address] (Wo rk) documented as of this encounter Visit Diagnoses Not on filedocumented in this encounter Care Teams Hydroelectric Systems Technician Relationship Specialty Start Date End Date Graham Licona MD PCP - General Family Medicine 06/30/21 [facility] [address] [place] [address] Timothy Smith MD Assigned Heart and Vascular 07/23/20 [address] Provider [place] [address] documented as of this encounter
--- OUTSIDE RECORDS SUMMARY | 2022-09-12 09:15 | XMS_ITS | Encounter Summary ---
:1940 Author Organization [place] Address [address] [facility] [place] [address] Care Team Providers Name Role Phone Timothy Smith MD Unavailable Graham Licona MD Primary Care Provider Reason for Visit Reason Comments Refill Request amiodarone Encounter Details Date Type Department Care Team Description 08/02/2022 Care Coordination [facility] Shashi Wilson Request Heart Clinic Sh[place]pi Silverman RN (amiodarone) [address] [facility] [address] [place] [address] Social History Tobacco Use Types Packs/Day Years Used Date Smoking Tobacco: Never Smokeless Tobacco: Never Alcohol Use Standard Drinks/Week Comments No 0 (1 standard drink = 0.6 oz pure alcoho l) Sex Assigned at Date Recorded Not on file documented as of this encounter Progress Notes Andra Wilson RN - 08/02/2022 4:22 PM CDT Refill requested: amiodarone [facility] Cardiology Refill Guideline reviewed. Medication does not [...] MD [address] [place] [address] Trudi Grayson APRN PLANT HEALTH CARE TECHNICIAN [address] [place] [address] 11/16/2022 Ancillary Procedure Cardiology Timothy Smith MD [address] [place] [address] (Wo rk) documented as of this encounter Visit Diagnoses Not on filedocumented in this encounter Care Teams Supplier Quality Engineer Relationship Specialty Start Date End Date Graham Licona MD PCP - General Family Medicine 06/30/21 [facility] [address] [place] [address] Timothy Smith MD Assigned Heart and Vascular 07/23/[address] Provider [place] [id number] documented as of this encounter
--- OUTSIDE RECORDS SUMMARY | 2022-09-12 09:15 | XMS_ITS | Encounter Summary ---
:1940 Author Organization [place] Address [address] [facility] [place] [address] Care Team Providers Name Role Phone Timothy [...] 2 count) [address] [place] [address] Referral ID Status Reason Start Date Expiration Date Visits V isits Requested Authorized [id number] Pending 05/04/2022 05/04/2023 10 10 Review Reason for Visit Reason Onset Date Comments Orders 05/03/2022 Cardiac device check in-clinic/ Extend order Encounter Details Date Type Department Care Team Description 05/03/2022 Telephone [facility] Heart Zarina mSith MD Orders (Cardiac device Clinic [place] [address] check in-clinic/ Extend [address] order ) [address] [place] [address] [place], [place] [phone] [address] (Work) [phone] Social History Tobacco Use Types Packs/Day Years [...] device appts. Appt made for pt in [place] for annual device check with Dr. Smith appt to follow. LM with date, time and place of appt and requested pt to call back to confirm. Orders previously entered for Amiodarone 6m follow up orders by Dr. Smith. Will fax to ord er to [facility] at . [facility] . Telephone Encounter - Maritza Metzger - 05/03/2022 12:47 PM CDT [facility] Call Center Phone Message May a [...] he would prefer to schedule this in [place] as well. Please send an order to [facility]. Advising them to reach out to the Pt for scheduling. Action Taken: Other: [place] [facility] Travel Screening: Not Applicable documented in this encounter Plan of Treatment Upcoming Encounters Date Type Specialty Care Team Description 09/28/2022 Lab Lab 09/28/2022 Office Visit Cardiology Timothy Smith MD [address] [place] [id number] Trudi Grayson, FLACO TUBE BUILDER [address] [id number] 11/16/2022 Ancillary Procedure Cardiology Timothy Smith MD [address] [place] [id number] (Wo rk) Scheduled Orders Name Type Priority Associated Diagnoses Order S chedule Cardiac Device Implantable Cardiac Routine Sustained VT 10 Occ urrences Check - In Device (ventricular starting 2021 Clinic (Standing tachycardia) (H ) until 05/04/2033, 1 ORD 2 count) 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 documented as of this encounter Results ICD DEVICE PROGRAMMING EVAL, SINGLE LEAD ICD (08/16/2022 2:50 PM PAYROLL AND BENEFITS MANAGER) Component Value Ref Test Analysis Performed Pathologis t Range Method Time At Signature Date Time MEDTRONIC Interrogation Session Implantable [place] [employer] MEDTRONIC Pulse Generator Applied Statistician Implantable D432 RESONATE EL MEDTRONIC Pulse Generator ICD Model Implantable 115832 MEDTRONIC Pulse Generator Serial Number Type In Clinic MEDTRONIC Interrogation Session Clinic Name [facility] MEDTRONIC Implantable Defibrillator MEDTRONIC Pulse Generator Type Implantable [id number] MEDTRONIC Pulse Generator Implant Date Implantable Lead [place] [employer] MEDTR ONIC Applied Statistician Implantable Lead [address] [place] MEDTRONIC Model 4-Site S Implantable Lead 364781 MEDTRONIC Serial Number Implantable Lead [id number] MEDTRONIC Implant Date Implantable Lead Bipolar Lead [...] 34 MEDTRONIC Statistic Total ATP Delivered Therapy [id number] MEDTRONIC Statistic Total Date Time End Therapy 6 MEDTRONIC Statistic Recent Shocks Delivered Therapy 0 MEDTRONIC Statistic Recent Shocks Aborted Therapy 26 MEDTRONIC Statistic Recent ATP Delivered Therapy SunAug 24 MEDTRONIC Statistic Recent 05:17:49 PAYROLL AND BENEFITS MANAGER 2020 Date Time Start Therapy [id number] MEDTRONIC Statistic Recent Date Time End Episode 681 MEDTRONIC Statistic Total Count Episode VT MEDTRONIC Statistic Type Category Episode NSVT MEDTRONIC Statistic Vendor Type Category Episode 20 MEDTRONIC Statistic Total Count Episode VF MEDTRONIC Statistic Type Category Episode VF MEDTRONIC Statistic Vendor Type Category Episode 2 MEDTRONIC Statistic Total Count Episode VF_VT_MONITOR MEDTRONIC Statistic Type Category Episode [id number] MEDTRONIC Statistic Total Date Time End Episode [id number] MEDTRONIC Statistic Total Date Time End Episode [id number] MEDTRONIC Statistic Total Date Time End Episode 203 MEDTRONIC Statistic Recent Count Episode VT MEDTRONIC Statistic Type Category Episode NSVT MEDTRONIC Statistic Vendor Type Category Episode 15 MEDTRONIC Statistic Recent Count Episode VF MEDTRONIC Statistic Type Category Episode VF MEDTRONIC Statistic Vendor Type Category Episode 1 MEDTRONIC Statistic Recent Count Episode VF_VT_MONITOR MEDTRONIC Statistic Type Category Episode SunAug 24 MEDTRONIC Statistic Recent 05:17:49 PAYROLL AND BENEFITS MANAGER 2020 Date Time Start Episode [id number] MEDTRONIC Statistic Recent Date Time End Episode SunAug 24 MEDTRONIC Statistic Recent 05:17:49 PAYROLL AND BENEFITS MANAGER 2020 Date Time Start Episode [id number] MEDTRONIC Statistic Recent Date Time End Episode SunAug 24 MEDTRONIC Statistic Recent 05:17:49 PAYROLL AND BENEFITS MANAGER 2020 Date Time Start Episode [id number] MEDTRONIC Statistic Recent Date Time End Anatomical Region Laterality Modality Other Specimen (Source) Anatomical Location Collection Method / Collectio n Time Received Time / Laterality Volume 08/16/2022 Narrative 08/23/2022 2:06 PM PAYROLL AND BENEFITS MANAGER [employer] Resonate (S) ICD Device Check Patient seen in clinic for device evalua tion and iterative programming. INSPECTOR EXHAUST EMISSIONS: 4% Mode: VVIR 50-130 Underlying Rhythm: AF [...] situ documented in this encounter Care Teams Metal Filer Relationship Specialty Start Date End Date Graham Licona MD PCP - General Family Medicine 06/30/21 [facility] [address] [place] [address] Timothy Smith MD Assigned Heart and Vascular 07/23/20 [address] Provider [place] [address] documented as of this encounter
--- OUTSIDE RECORDS SUMMARY | 2022-09-12 09:15 | XMS_ITS | Encounter Summary ---
:1940 Author Organization [place] Address [address] [place] [address] Care Team Providers Name Role Phone Timothy Smith MD Unavailable Graham Licona MD Primary Care Provider Reason for Visit Reason Onset Date Comments Implantable Devices 05/01/2022 Encounter Details Date Type Department Care Team Description 05/01/2022 Telephone [facility] Eve Santos, Impla ntable Devices [facility] RN Care [facility] [address] [place] [address] Social History Tobacco Use Types [...] 09/28/2022 Office Visit Cardiology Timothy Smith MD [address] [place] [phone] Trudi Grayson APRN QUARTER LINING SMOOTHER [address] [place] [address] 11/16/2022 Ancillary Procedure Cardiology Timothy Smith MD [address] [place] [id number] (Wo rk) documented as of this encounter Visit Diagnoses Not on filedocumented in this encounter Care Teams Hand Stoner Relationship Specialty Start Date End Date Graham Licona MD PCP - General Family Medicine 06/30/21 [facility] [address] [place] [address] Timothy Smith MD Assigned Heart and Vascular 07/23/20 [address] Provider [place] [id number] documented as of this encounter
--- OUTSIDE RECORDS SUMMARY | 2022-09-12 09:15 | XMS_ITS | Encounter Summary ---
:1940 Author Organization [place] Address [address] [place] [address] Care Team Providers Name Role Phone Timothy Smith MD Unavailable Graham Licona MD Primary Care Provider Reason for Visit CV Testing (Routine) - Pending Review Specialty Diagnoses / Procedures Referred By Contact Refer red To Contact Diagnoses Cardiac pacemaker in situ Steven Canchola Procedures Cardiac Device Check - Remote [address] [place] [address] Referral ID Status Reason Start Date Expiration Date Visits V isits Requested Authorized [id number] Pending 03/20/2022 03/20/2023 1 1 Review Encounter Details Date Type Department Care Team Description 03/20/2022 Ancillary [facility] Steven Canchola Card iac pacemaker Procedure [facility] MD Jose in situ Heart Care [address] [place] [address] [place] [phone] (Wo rk) [address] [phone] Social History Tobacco Use Types Packs/Day Years Used Date Smoking Tobacco: Never Smokeless Tobacco: Never Alcohol Use Standard Drinks/Week Comments No 0 (1 standard drink = 0.6 oz pure alcoho l) Sex Assigned at Date Recorded Not on file documented as of this encounter Plan of Treatment Upcoming Encounters Date Type Specialty Care Team Description 09/28/2022 Lab Lab 09/28/2022 Office Visit Cardiology Timothy Simth MD [address] [place], [place] [address] Trudi Grayson CLINICAL SUPPORT SPECIALIST SKIDDER RUNNER [address] [place] [address] 11/16/2022 Ancillary Procedure Cardiology Timothy Smith MD [address] [place], [place] [address] (Wo rk) documented as of this encounter [...] Range Method Time At Signature Date Time [id number] [employer] Interrogation Session Implantable [place] [employer] Pulse Generator Photographic Enlarger Operator Implantable D432 RESONATE EL [employer]ON[employer] Pulse Generator ICD Model Implantable [id number] [employer]TRONIC Pulse Generator Serial Number Type Remote MEDTRONIC Interrogation Session Clinic Name [facility] [employer] Implantable Defibrillator MED[employer]ONIC Pulse Generator Type Implantable [id number] MEDTRONIC Pulse Generator Implant Date Implantable Lead [place] [employer] Photographic Enlarger Operator Implantable Lead 0272 [place] [employer]TR[employer]IC Model 4-Site S Implantable Lead [id number] [employer]TRONIC Serial Number Implantable Lead [id number] MEDTRONIC Implant Date Implantable Lead Bipolar Lead [...] Charge 41 J MEDTRONIC Energy Brandon Statistic [id number] [employer]TRONIC Date Time Start Brandon Statistic [id number] MEDTRONIC Date Time End Brandon Statistic 3 % MEDTRONIC RV Percent Paced Therapy 6 MEDTRONIC Statistic Recent Shocks Delivered Therapy 0 MEDTRONIC Statistic Recent Shocks Aborted Therapy 26 MEDTRONIC Statistic Recent ATP Delivered Therapy [id number] MEDTRONIC Statistic Recent Date Time Start Therapy [id number] MEDTRONIC Statistic Recent Date Time End Therapy 6 MEDTRONIC Statistic Total Shocks Delivered Therapy 0 MEDTRONIC Statistic Total Shocks Aborted Therapy 34 MEDTRONIC Statistic Total ATP Delivered Therapy 12474626329458 MEDTRONIC Statistic Total Date Time End Episode [...] VT-1 MEDTRONIC Statistic Vendor Type Category Episode [id number] MEDTRONIC Statistic Recent Date Time Start Episode [id number] MEDTRONIC Statistic Recent Date Time End Episode [id number] [employer]TRONIC Statistic Recent Date Time Start Episode [id number] [employer] Statistic Recent Date Time End Episode [id number] [employer]ONIC Statistic Recent Date Time Start Episode [id number] [employer]TRONIC Statistic Recent Date Time End Episode [...] AM CDT Narrative 03/26/2022 9:18 AM CDT Shwrüm Resonate(S) ICD Remote Device Check ?? METER INSTALLER AND REMOVER: 3 % ?? Mode: VVIR 50-130 ?? [...] 3-23s. ?? ATP: see episodes already reviewed. Tuan e last scheduled remote on 11/23/21, pt [...] Toprolol XL. ??per Dr. Tomlin's note fro [facility]: CHANGE how you take these [...] and unable to reach ordering provider at [facility]. SH/RN I have reviewed and interpreted the agustín ce interrogation, settings, programming and nurse's summary. The dev ice is functioning within normal device parameters. I agree with the curr ent findings, assessment and plan. Steven Canchola MD [facility] [employer] documented in this encounter Visit Diagnoses Diagnosis Cardiac pacemaker in situ documented in this encounter Care Teams Brim Setter Relationship Specialty Start Date End Date Graham Licona MD PCP - General Family Medicine 06/30/21 [facility] [address] [place] [address] Timothy Smith MD Assigned Heart and Vascular 07/23/20 [address] Provider [place] [address] documented as of this encounter
--- OUTSIDE RECORDS SUMMARY | 2022-09-12 09:15 | XMS_ITS ---
:1940 Author Organization [place] Address [address] [facility] [place] [address] Care Team Providers Name Role Phone Timothy [...] treatments are documented for this patient in [facility]. Treatments may have been administered in another system. Lifetime Dose Tracking Chemical Lifetime Dose Automatic Entry Manual Entry Air Kerma 64 mGy 0 mGy 64 mGy Margie DAP 8,803 mGy-cm2 0 mGy-cm2 8,803 mGy-cm2
--- OUTSIDE RECORDS SUMMARY | 2022-09-12 09:15 | XMS_ITS | Encounter Summary ---
:1940 Author Organization [place] Address [address] [facility] [place] [address] Care Team Providers Name Role Phone Timothy Smith MD Unavailable Graham Licona MD Primary Care Provider Encounter Details Date Type Department Care Team Description 08/11/2022 Lab [facility] Heart Paro xysmal ventricular tachycardia; [facility] [place] Persistent atrial fibrillati on (H) [address] [place] [address] Social History Tobacco Use [...] No / Unsu re 08/11/2022 2:36 PM DRY PLASTERER someone who was confirmed or suspected to have Coronavirus/COVID-19? documented as of this encounter Plan of Treatment Upcoming Encounters Date Type Specialty Care Team Description 09/28/2022 Lab Lab 09/28/2022 Office Visit Cardiology Timothy Smith MD [address] [place] [id number] Trudi Grayson APRN HR INTERN [address] [place] [address] 11/16/2022 Ancillary Procedure Cardiology Timothy Smith MD [address] [place] [address] (Wo rk) documented as of this encounter Procedures Procedure Name Priority Date/Time Associated Diagnosis Comme nts TSH Routine 08/11/2022 2:41 PM Persistent atrial Resu lts for this DRY PLASTERER fibrillation (H) procedure a re in the results section. HEPATIC FUNCTION Routine 08/11/2022 2:41 PM Paroxysmal Resul ts for this PANEL DRY PLASTERER ventricular procedure are i n tachycardia the results section. BASIC METABOLIC Routine 08/11/2022 2:41 PM Paroxysmal Result s for this PANEL DRY PLASTERER ventricular procedure are i n tachycardia the results section. documented in this encounter Results (ABNORMAL) TSH (08/11/2022 2:41 PM DRY PLASTERER) P athologist Signature TSH 72.13 (H) 0.30 - 4.20 08/11/2022 [facility] uIU/mL 3:22 PM DRY PLASTERER Specimen Anatomical Collection Method / Collection Time Recei chikis Time (Source) Location / Volume Laterality Blood STRUCTURE OF LEFT Venipuncture / 08/11/2022 2:41 08/11 2:46 UPPER LIMB / Unknown PM DRY PLASTERER PM DRY PLASTERER Unknown Timothy Smith MD LAB - BLOOD ORDERABLES Performing Organization Address City/State/ZIP Code [place] [phone] Care Lab [address] Lab (1st floor, no room number) (ABNORMAL) Basic metabolic panel (08/11/2022 2:41 PM DRY PLASTERER) Patholo gist Method Time Signature Sodium 142 136 - 145 08/11/2022 [facility] mmol/L 3:16 PM DRY PLASTERER Potassium 4.3 3.4 - 5.3 08/11/2022 [facility] mmol/L 3:16 PM DRY PLASTERER Chloride 98 98 - 107 08/11/2022 [facility] mmol/L 3:16 PM DRY PLASTERER Carbon Dioxide 34 (H) 22 - 29 08/11/2022 [facility] (CO2) mmol/L 3:16 PM DRY PLASTERER Anion Gap 10 7 - 15 08/11/2022 [facility] mmol/L 3:16 PM DRY PLASTERER Urea Nitrogen 58.6 (H) 8.0 - 23.0 08/11/2022 LABORATORY mg/dL 3:16 PM DRY PLASTERER Creatinine 2.29 (H) 0.67 - 08/11/2022 LABORATORY 1.17 mg/dL 3:16 PM DRY PLASTERER Calcium 9.5 8.8 - 10.2 08/11/2022 LABORATORY mg/dL 3:16 PM DRY PLASTERER Glucose 150 (H) 70 - 99 08/11/2022 LABORATORY mg/dL 3:16 PM DRY PLASTERER GFR Estimate 28 (L) >60 08/11/2022 LABORATORY mL/min/1.7 3:16 PM DRY PLASTERER 3m2 Comment: Effective September 20, 2021 eGF Rcr in adults is calculated using the 2020 CKD-EPI creatinine equation which includ es age and gender (Humberto et al., NEJ, DOI: 10.1056/MPFDzy8549916) Specimen Anatomical Collection Method / Collection Time Recei chikis Time (Source) Location / Volume Laterality Blood STRUCTURE OF LEFT Venipuncture / 08/11/2022 2:41 08/11 2:46 UPPER LIMB / Unknown PM DRY PLASTERER PM DRY PLASTERER Unknown Timothy Smith MD LAB - BLOOD ORDERABLES Performing Organization Address City/State/ZIP Code [place] [address] Care Lab [address] Lab (1st floor, no room number) (ABNORMAL) Hepatic panel (08/11/2022 2:41 PM DRY PLASTERER) [facility] Method Time Signature Protein Total 7.8 6.4 - 8.3 08/11/2022 LABORATORY g/dL 3:16 PM DRY PLASTERER Albumin 4.1 3.5 - 5.2 08/11/2022 LABORATORY g/dL 3:16 PM DRY PLASTERER Bilirubin Total 0.7 <=1.2 08/11/2022 LABORATORY mg/dL 3:16 PM DRY PLASTERER Alkaline 52 40 - 129 08/11/2022 LABORATORY Phosphatase U/L 3:16 PM DRY PLASTERER AST 30 10 - 50 08/11/2022 LABORATORY U/L 3:16 PM DRY PLASTERER ALT 15 10 - 50 08/11/2022 LABORATORY U/L 3:16 PM DRY PLASTERER Bilirubin Direct 0.35 (H) 0.00 - 08/11/2022 [facility] Y 0.30 3:16 PM DRY PLASTERER mg/dL Specimen Anatomical Collection Method / Collection Time Recei chikis Time (Source) Location / Volume Laterality Blood STRUCTURE OF LEFT Venipuncture / 08/11/2022 2:41 08/11 2:46 UPPER LIMB / Unknown PM DRY PLASTERER PM DRY PLASTERER Unknown Timothy Smith MD LAB - BLOOD ORDERABLES Performing Organization Address City/State/ZIP Code [place] [phone] Care Lab [address] Lab (1st floor, no room number) documented in this encounter Visit Diagnoses Diagnosis Paroxysmal ventricular tachycardia Persistent atrial fibrillation (H) Atrial fibrillation documented in this encounter Care Teams Chairman & Chief Executive Officer Relationship Specialty Start Date End Date Graham Licona MD PCP - General Family Medicine 06/30/21 [facility] [address] [place] [address] Timothy Smith MD Assigned Heart and Vascular 07/23/20 [address] Provider [place] [id number] documented as of this encounter
--- OUTSIDE RECORDS SUMMARY | 2022-09-12 09:15 | XMS_ITS | Encounter Summary ---
:1940 Author Organization [place] Address [address] [facility] [place] [address] Care Team Providers Name Role Phone Timothy Smith MD Unavailable Graham Licona MD Primary Care Provider Reason for Visit Reason Onset Date Comments ICD Check 08/31/2022 Elevated Heart Logic Encounter Details Date Type Department Care Team Description 08/31/2022 Telephone [facility] Sammi Hill ICD C brittni ([facility] Carrie, payment processor Log ic) Heart Care [facility] [address] [place] [phone] Social History Tobacco Use Types Packs/Day Years Used Date Smoking Tobacco: Never Smokeless Tobacco: Never Alcohol Use Standard Drinks/Week Comments No 0 (1 standard drink = 0.6 oz pure alcoho l) Sex Assigned at Date Recorded Not on file COVID-19 Exposure Response Date Recorded In the last 10 days, have you been in contact with No / Unsu re 08/16/2022 2:19 PM [employer] SUPERINTENDENT someone who was confirmed or suspected to have Coronavirus/COVID-19? documented as of this encounter Miscellaneous Notes Telephone Encounter - Sammi Hill RN - 08/31/2022 1:58 PM [employer] SUPERINTENDENT Images from the original note were not included. Remote ICD alert for elevated Heart Logic. Value today is 30. It first alerted last week when value was 22. Greatest Contributing Trends are S3/S1 Ratio and Thoracic Impedance. ICD was implanted in 2020 for sustained VT. Echo from 01/2021 shows EF of 50-55%. Pt does not have a history of CHF listed in chart. Called pt. He said he is feeling fine and denied any symptoms of CHF. I explained the Heart Logic algorithm to pt and told him that sometimes it is too sensitive and people are still feeling fine. Pt will call if he has any CHF symptoms, especially shortness of breath of ankle edema. Pt states no questions. ORNE [employer] SYSTEM[employer] SUPERINTENDENT documented in this encounter Plan of Treatment Upcoming Encounters Date Type Specialty Care Team Description 09/28/2022 Lab Lab 09/28/2022 Office Visit Cardiology Timothy Smith MD [address] [place] [id number] Trudi Grayson APRN DIVING FISHER [address] [place] [address] 11/16/2022 Ancillary Procedure Cardiology Timothy Smith MD [address] [place] [id number] (Wo rk) documented as of this encounter Visit Diagnoses Not on filedocumented in this encounter Care Teams Securities Clerk Relationship Specialty Start Date End Date Graham Licona MD PCP - General Family Medicine 06/30/21 [facility] [address] [place] [address] Timothy Smith MD Assigned Heart and Vascular 07/23/20 [address] Provider [place] [id number] documented as of this encounter
--- OUTSIDE RECORDS SUMMARY | 2022-09-12 09:15 | XMS_ITS | Encounter Summary ---
:1940 Author Organization [place] Address [address] [facility] [place] [address] Care Team Providers Name Role Phone Timothy Smith MD Unavailable Graham Licona MD Primary Care Provider Reason for Visit Reason Comments Heart Problem ICD shocks Encounter Details Date Type Department Care Team Description 01/27/2022 Documentation Only [facility] Catherine Aranda eart Problem (ICD Heart [facility] [place] LPN shocks) [address] [facility] [address] [place] [address] Social History Tobacco Use Types Packs/Day [...] now. [facility] felt that he was in stable condition and he was discharged home. Patient states that he will not be back before the clinic closes this tonight. He will go send a remote device transmission when he gets home so we can make sure that we have the EGMs from his shocks available to review on Sunday morning. Patient states understanding and agreement with plan. He is currently scheduled to see Dr. Smith 02/08/22. documented in this encounter Plan of Treatment Upcoming Encounters Date Type Specialty Care Team Description 09/28/2022 Lab Lab 09/28/2022 Office Visit Cardiology Timothy Smith MD [address] [place] [address] Trudi Grayson APRN JUNIOR UNDERWRITER [address] [place] [address] 11/16/2022 Ancillary Procedure Cardiology Timothy Smith MD [address] [place] [address] (Wo rk) documented as of this encounter Visit Diagnoses Not on filedocumented in this encounter Care Teams Manager Engagement Relationship Specialty Start Date End Date Graham Licona MD PCP - General Family Medicine 06/30/21 [facility] [address] [place] [address] Timothy Smith MD Assigned Heart and Vascular 07/23/20 [address] Provider [place] [id number] documented as of this encounter
--- OUTSIDE RECORDS SUMMARY | 2022-09-12 09:15 | XMS_ITS | Encounter Summary ---
:1940 Author Organization [place] Address [address] [facility] [place] [address] Care Team Providers Name Role Phone Timothy Smith MD Unavailable Graham Licona MD Primary Care Provider Reason for Referral Diagnostic Imaging XR (Routine) - Pending Review Specialty Diagnoses / Procedures Referred By Contact Refer red To Contact Diagnoses Paroxysmal ventricular tachycardia Timothy Smith MD Procedures XR Chest [address] [place] [address] Referral ID Status Reason Start Date Expiration Date Visits V isits Requested Authorized [id number] Pending 02/08/2022 02/08/2023 1 1 Review IAL SYSTEMS TECHNICIAN Reason for Visit Diagnostic Imaging XR (Routine) - Pending Review Specialty Diagnoses / Procedures Referred By Contact Refer red To Contact Diagnoses Paroxysmal ventricular tachycardia Timothy Smith MD Procedures XR Chest [address] [place] [address] Referral ID Status Reason Start Date Expiration Date Visits V isits Requested Authorized [id number] Pending 02/08/2022 02/08/2023 1 1 Review Encounter Details Date Type Department Care Team Description 08/11/2022 Hospital Encounter [facility] Timothy Smith MD Paroxysmal [facility] [address] ventricular [address] [address] tachycardia [address] [place] [address] [place], [place] [phone] (Work) [phone] Social History Tobacco Use Types Packs/Day Years Used Date Smoking Tobacco: Never Smokeless Tobacco: Never Alcohol Use Standard Drinks/Week Comments No 0 (1 standard drink = 0.6 oz pure alcoho l) Sex Assigned at Date Recorded Not on file COVID-19 Exposure Response Date Recorded In the last 10 days, have you been in contact with No / Unsu re 08/11/2022 2:36 PM SPECIAL SYSTEMS TECHNICIAN someone who was confirmed or suspected [...] Coronary artery disease minutes as needed involving [place] coronary for chest pain artery of [place] heart without angina pectoris omeprazole (PRILOSEC) 20 [...] [address] [place] [phone] Trudi Grayson APRN COAGULATION OPERATOR [address] [id number] 11/16/2022 Ancillary Procedure Cardiology Timothy Smith MD [address] [place] [phone] (Wo rk) documented as of this encounter Procedures Procedure Name Priority Date/Time Associated Diagnosis Comme nts XR CHEST 2 VIEWS Routine 08/11/2022 3:08 PM Paroxysmal Resul ts for this SPECIAL SYSTEMS TECHNICIAN ventricular procedure are i n tachycardia the results section. documented in this encounter Results XR Chest 2 Views (08/11/2022 3:08 PM SPECIAL SYSTEMS TECHNICIAN) Anatomical Region Laterality Modality Chest Radio Fluoroscopy Specimen (Source) Anatomical Location Collection Method / Collectio n Time Received Time / Laterality Volume Impressions 08/11/2022 4:27 PM SPECIAL SYSTEMS TECHNICIAN IMPRESSION: There are no acute infiltrates. The cardiac silhouette is not enlarged. Pulmonary vasculature is u nremarkable. VALERIANO FITZGERALD MD Narrative 08/11/2022 4:27 PM SPECIAL SYSTEMS TECHNICIAN CHEST TWO VIEWS 08/11/2022 3:08 PM HISTORY: Paroxysmal ventricular tachycar timi. COMPARISON: 07/04/2021 Procedure Note Valeriano Fitzgerald MD - 11/11/2022Fo rmatting of this note might be different [...] tachycardia documented in this encounter Care Teams Furnace Cooler Relationship Specialty Start Date End Date Graham Licona MD PCP - General Family Medicine 06/30/21 [facility] [address] [place] [address] Timothy Smith MD Assigned Heart and Vascular 07/23/20 [address] [facility] [address] [address] Provider [place] [address] documented as of this encounter
--- OUTSIDE RECORDS SUMMARY | 2022-09-12 09:16 | XMS_ITS | Encounter Summary ---
:1940 Author Organization [place] Address [address] [place] [address] Care Team Providers Name Role Phone Slava Hernandez PA-C Primary Care Provider Timothy Smith MD Unavailable Reason for Referral (Routine) - Closed Specialty Diagnoses / Procedures Referred By Contact Refer red To Contact Diagnoses Sustained VT (ventricular tachycardia) Cardiac pacemaker in situ [facility] Cardiac Services Procedures Case Request EP: Implantable Cardioverter-Defibrillator (ICD) [address] [address] [place] [address] Referral ID Status Reason Start Date Expiration Date Visits Requ ested Visits Authorized [id number] Closed 06/23/2021 06/23/2022 1 1 onsultation (Routine) - Closed Specialty Diagnoses / Procedures Referred By Contact Refer red To Contact Diagnoses Sustained VT (ventricular tachycardia) Cardiac pacemaker in situ [facility] Cv Cardiac Services [address] [address] [place] [address] Referral ID Status Reason Start Date Expiration Date Visits Requ ested Visits Authorized [id number] Closed 06/23/2021 06/23/2022 1 1 Reason for Visit Reason Onset Date Comments Implantable Devices 06/23/2021 Encounter Details Date Type Department Care Team Description 06/23/2021 Telephone [facility] Sandrine Whitman Implantable Devices [facility] Heart [address] [facility] [address] [place] [address] Social History Tobacco Use Types [...] MD [address] [place] [address] Trudi Grayson APRN MACHINE FEEDER RAW STOCK [address] [place] [address] 11/16/2022 Ancillary Procedure Cardiology Timothy Smith MD [address] [place] [id number] (Wo rk) Scheduled Referrals Name Type Priority Associated Order Schedule Diagnoses Follow-Up with Referral Routine: Next Sustained VT Expected: Woodwind Reeds Cutter available opening (ventricular tachycardia) (H) (Approximate), Cardiac pacemaker Expires: in situ 06/23/2022 documented as of this encounter Visit Diagnoses Diagnosis Sustained VT (ventricular tachycardia) - Primary Paroxysmal ventricular tachycardia Cardiac pacemaker in situ documented in this encounter Care Teams Treatment Coordinator Relationship Specialty Start Date End Date Slava Hernandez, PCP - General Physician Macadam Raker 07/02/[birth year]06/02 PA-C [facility] [address] [place] [address] Timothy Smith MD Assigned Heart and 07/23/20 [address] Vascular Provider [address] [place] [address] documented as of this encounter
--- OUTSIDE RECORDS SUMMARY | 2022-09-12 09:16 | XMS_ITS | Encounter Summary ---
:1940 Author Organization [place] Address [address] [facility] [place] [address] Care Team Providers Name Role Phone Timothy Smith MD Unavailable Graham Licona MD Primary Care Provider Reason for Visit Reason Onset Date Comments Implantable Devices 07/25/2021 Alert for VT requiri ng ATP Encounter Details Date Type Department Care Team Description 07/25/2021 Telephone [facility] Sintia Muhammad, Impl antable Devices [facility] RN (Alert fo r VT requiring Heart Care ATP) [address] [place] [phone] Social History Tobacco Use Types Packs/Day [...] clinic phone number provided. Pt is on [employer] XL. Dr. Smith was previously notified for [...] Visit Cardiology Timothy Smith MD [address] [place] [address] Trudi Grayson APRN ACCOUNT FINANCIAL MANAGER [address] [place] [address] 11/16/2022 Ancillary Procedure Cardiology Timothy Smith MD [address] [place] [id number] (Wo rk) documented as of this encounter Visit Diagnoses Not on filedocumented in this encounter Care Teams Hardboard Factory Worker Relationship Specialty Start Date End Date Graham Licona MD PCP - General Family Medicine 06/30/21 [facility] [address] [place] [address] Timothy Smith MD Assigned Heart and Vascular 07/23/20 [address] Provider [place] [id number] documented as of this encounter
--- OUTSIDE RECORDS SUMMARY | 2022-09-12 09:16 | XMS_ITS | Encounter Summary ---
:1940 Author Organization [place] Address [address] [place] [address] Care Team Providers Name Role Phone Timothy Smith MD Unavailable Graham Licona MD Primary Care Provider Encounter Details Date Type Department Care Team Description [facility]/05[facility]2021 [facility] [address] [place] [address] Social History Tobacco Use Types [...] at 12:02 and 12:04. EGM shows VT [id number] and [id number] with V-rates in the 200-210s. [...] [address] [place] [address] Trudi Grayson APRN CORE RESCUER [address] [address] 11/16/2022 Ancillary Procedure Cardiology Timothy Smith MD [address] [place] [id number] (Wo rk) documented as of this encounter Visit Diagnoses Not on filedocumented in this encounter Care Teams Accreditation Specialist Relationship Specialty Start Date End Date Graham Licona MD PCP - General Family Medicine 06/30/21 [facility] [address] [place] [address] Timothy Smith MD Assigned Heart and Vascular 07/23/20 [address] Provider [place] [id number] documented as of this encounter
--- OUTSIDE RECORDS SUMMARY | 2022-09-12 09:16 | XMS_ITS | Encounter Summary ---
:1940 Author Organization [place] Address [address] [place] [address] Care Team Providers Name Role Phone Timothy Smith MD Unavailable Graham Licona MD Primary Care Provider Encounter Details Date Type Department Care Team Description 07/14/2021 Documentation Only [facility] [place] [place] RN [address] [facility] [address] [place] [phone] Social History Tobacco Use Types Packs/Day Years [...] [address] [place] [id number] Trudi Grayson APRN CASINO CONTROLLER [address] [id number] 11/16/2022 Ancillary Procedure Cardiology Timothy Smith MD [address] [place] [id number] (Wo rk) documented as of this encounter Visit Diagnoses Not on filedocumented in this encounter Care Teams Fashion Supervisor Relationship Specialty Start Date End Date Graham Licona MD PCP - General Family Medicine 06/30/21 [facility] [address] [place] [address] Timothy Smith MD Assigned Heart and Vascular 07/23/20 [address] Provider [place] [id number] documented as of this encounter
--- OUTSIDE RECORDS SUMMARY | 2022-09-12 09:16 | XMS_ITS | Encounter Summary ---
:1940 Author Organization [place] Address [address] [facility] [place] [address] Care Team Providers Name Role Phone Timothy Smith MD Unavailable Graham Licona MD Primary Care Provider Reason for Visit Reason Comments H & P For ICD upgrade Consultation (Routine) - Closed Specialty Diagnoses / Procedures Referred By Contact Refer red To Contact Diagnoses Sustained VT (ventricular tachycardia) Cardiac pacemaker in situ [facility] [address] [facility] [address] [place] [phone] Referral ID Status Reason Start Date Expiration Date Visits Requ ested Visits Authorized [id number] Closed 06/23/2021 06/23/2022 1 1 Encounter Details Date Type Department Care Team Description 06/30/2021 Office Visit [facility] Tammy Montenegro [place] (ventricular tachycardia) (H); [facility] [place] Torres PA-C Cardiac pacemaker in situ; [address] [facility] Type 2 diabetes mellitus with complication (H); [address] Persistent atrial fibrillation (H) [place] [phone] [place] [id number] (Wo rk) Social History Tobacco Use Types [...] today! 1. Reviewed your recent hospitalization at [facility]. I'll look into this more and let [...] 8 AM, thennothing to eat/drink after 0800. [phone] documented in this encounter Progress Notes Tammy Montenegro PA-C - 06/30/2021 7:30 AM CDT [facility] I had [...] (diabetes, CAD, age) 5. 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 He did not ever have an AV node ablation. 6. 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 We believe he had a VG -OM, VG-RCA, VG-LAD and VG-D at that time. Angiogram01/2016 showed patent VGs! 7. 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 8. Obstructive sleep apnea, type 2 diabetes, obesity 9. Recent GI bleed/bleeding ulcer - admitted [facility] 06/04-03/2021. Two units pRBCs given. EGD reportedly [...] me that he was recently admitted to [facility] d/t dark tarry stools 06/02-01/2021 (?). He [...] pRBCs. We'll work on getting records from [facility]. No issues with palpitations. No dizziness, lightheadedness since the 2 that prompted him to agree toICD implantation this summer. No syncope/falls. No c/o CP. Thinks breathing is stable. He's not taking Celebrex anymore (since hospital discharge) and aches b/c of this, but not anything he wasn't expecting. ADDENDUM 06/30/2021 REVIEWED NOTES FROM [facility]. Pt admitted 06/03- 03/2021 for acute [...] showed AFib 92 bpm. Frequent PVCs. RBBB Idno Sci PPM 05/2021, showed 30% CROSS TIE CUTTER in VVIR 60/130. 2 HVR with EGMs showing AFib/RVR to 35seconds Echocardiogram 03/2021 - EF 50-55%. Mod decreased RVSF. MARTA (mod). Mod MAC with trace MR. Trace TR with RVSP 36+RAP. RA pressure 8mmHg. Trivial aortic sclerosis with trace-mild AI. Root OK. asc ao mildly dilated 3.7 cm Angiogram 01/2016 - patent bypass grafts Plan: Get [facility] records re: GI Bleed ICD upgrade as [...] ICD therapy was provided today and reviewed [id number]. The main points addressed in the handout were further discussed today. All questions/concerns were addressed. After a good discussion, the patient verbalized understanding and has agreed to proceed with ICD implantation. ??? [place] Decision Making Aid PLAN: ??? ICD upgrade [...] cephalexin x 7 days given early Jun @[facility]) 2. CAD ??? S/p 4 v CABG [...] BRBPR/melena PLAN: ??? Will work on getting [facility] documents ??? CBC will be completed at [...] Gatherings with Friends and Family: ??? Attends Oriental Orthodox Services: ??? Active Member of Clubs or Organizations: ??? Attends Club or Organization Meetings: ??? Marital Status: Intimate Partner Violence: ??? Fear of Current or Ex-Partner: ??? Emotionally Abused: ??? Physically Abused: ??? Sexually Abused: documented in this encounter Plan of Treatment Upcoming Encounters Date Type Specialty Care Team Description 09/28/2022 Lab Lab 09/28/2022 Office Visit Cardiology Timothy Smith MD [address] [place] [phone] Trudi Grayson, FLACO RETIREMENT SPECIALIST [address] [address] 11/16/2022 Ancillary Procedure Cardiology Timothy Smith MD [address] [place] [id number] (Wo rk) documented as of this encounter Visit Diagnoses Diagnosis Sustained VT (ventricular tachycardia) Paroxysmal ventricular tachycardia Cardiac pacemaker in situ Type 2 diabetes mellitus with complicati on (H) Persistent atrial fibrillation (H) Atrial fibrillation documented in this encounter Care Teams Garbage Collection Supervisor Relationship Specialty Start Date End Date Graham Licona MD PCP - General Family Medicine 06/30/21 [facility] [address] [place] [address] Timothy [place] MD Assigned Heart and Vascular 07/23/20 [address] Provider [place] [id number] documented as of this encounter
--- OUTSIDE RECORDS SUMMARY | 2022-09-12 09:16 | XMS_ITS | Encounter Summary ---
:1940 Author Organization [place] Address [address] [place] [address] Care Team Providers Name Role Phone Timothy Smith MD Unavailable Graham Licona MD Primary Care Provider Reason for Visit Reason Comments Clinic Care Coordination - Follow-up Encounter Details Date Type Department Care Team Description 06/30/2021 Documentation Only [facility] Tammy Montenegro Clinic Care [facility] [place] Torres PA-C Coordination - [address] [facility] [address] [place] [facility] [place] [id number] [phone] Social History Tobacco Use Types Packs/Day [...] let me know that he'd been at [facility] for GI bleed/ulcer~. He's been off [...] [address] [place] [address] Trudi Grayson APRN TOBACCO WRAPPING MACHINE TENDER [address] [place] [address] 11/16/2022 Ancillary Procedure Cardiology Timothy Smith MD [address] [place] [address] (Wo rk) documented as of this encounter Visit Diagnoses Not on filedocumented in this encounter Care Teams Hand Compositor Relationship Specialty Start Date End Date Graham Licona MD PCP - General Family Medicine 06/30/21 [facility] [address] [place] [address] Timothy [place] MD Assigned Heart and Vascular 07/23/[address] Provider [place] [id number] documented as of this encounter
--- OUTSIDE RECORDS SUMMARY | 2022-09-12 09:16 | XMS_ITS | Encounter Summary ---
:1940 Author Organization [place] Address [address] [facility] [place] [address] Care Team Providers Name Role Phone Timothy Smith MD Unavailable Graham Licona MD Primary Care Provider Reason for Visit Reason Onset Date Comments Implantable Devices 08/24/2021 Encounter Details Date Type Department Care Team Description 08/24/2021 Telephone [facility] Sandrine Whitman Implantable Devices [facility] Care [address] [place] [address] [address] [place] [address] Social History Tobacco Use Types Packs/Day Years Used Date Smoking Tobacco: Never Smokeless Tobacco: Never Alcohol Use Standard Drinks/Week Comments No 0 (1 standard drink = 0.6 oz pure alcoho l) Sex Assigned at Date Recorded Not on file COVID-19 Exposure Response Date Recorded In the last month, have you been in contact with No / Unsure 08/24/2021 10:48 AM URBAN RENEWAL MANAGER someone who was confirmed or suspected [...] bleed (dark tarry stools). Patient voiced understanding. N RENEWAL MANAGER Telephone Encounter - Aliza Whitman - 08/24/2021 [...] ?? Will route message to Dr Smith. N RENEWAL MANAGER documented in this encounter Plan of Treatment Upcoming Encounters Date Type Specialty Care Team Description 09/28/2022 Lab Lab 09/28/2022 Office Visit Cardiology Timothy Smith MD [address] [place] [phone] Trudi Grayson APRN SEWING MACHINE ATTACHMENT TESTER [address] [place] [address] 11/16/2022 Ancillary Procedure Cardiology Timothy Smith MD [address] [place] [phone] (Wo rk) documented as of this encounter Visit Diagnoses Diagnosis Persistent atrial fibrillation (H) - [facility] Atrial fibrillation documented in this encounter Care Teams Guest Service Representative Relationship Specialty Start Date End Date Graham Licona MD PCP - General Family Medicine 06/30/21 [facility] [address] [place] [address] Timothy Smith MD Assigned Heart and Vascular 07/23/20 [address] Provider [place] [id number] documented as of this encounter
--- OUTSIDE RECORDS SUMMARY | 2022-09-12 09:16 | XMS_ITS | Encounter Summary ---
:1940 Author Organization [place] Address [address] [facility] [place] [address] Care Team Providers Name Role Phone Timothy Smith MD Unavailable Grahma Licona MD Primary Care Provider Reason for Visit Auth/Cert Specialty Diagnoses / Procedures Referred By Contact Refer red To Contact Med Surg Diagnoses Sustained VT (ventricular tachycardia) Cardiac pacemaker in situ [place] Care Suites Procedures HC ICD IMPLANT, SINGLE / DUAL W LEAD INSERTION/REPOSITIONING Implantable Cardioverter-Defibrillator (ICD) [address] [phone] Phone: Referral ID Status Reason Start Date Expiration Date Visits Requ ested Visits Authorized [id number] 1 1 Encounter Details Date Type Department Care Team Description 07/04/2021 Surgery [facility] Kaur De Leon MD [facility] [address] Card ioverter-Defibrillat Heart Care [address] or (ICD) [address] [address] [place] [phone] [phone] Surgery Details Date/Time Status Location OR Service Patient Class Case Case Trauma Class Type Case? 07/04/21 2:00 Posted HEART Cath Cardiology Outpatient PM CARDIAC Lab 4 LEGAL ASSISTANT Panel 1 Procedure [facility] Anes Op Region [...] If you need to change it, use [id number] gauze and a large clear bandage. ??? [...] 10 minutes. ??? Once bleeding stops, call [facility] Heart Clinic as soon as [...] ??? Follow up with Device Clinic at [facility] Heart Clinic of patient preference [...] Device Safety: ??? Please refer to device license examiner???s booklet for further information. [facility] at [place]: [phone] [facility] (7 days a week) documented [...] Coronary artery disease minutes as needed involving [place] coronary for chest pain artery of [place] heart without angina pectoris omeprazole (PRILOSEC) 20 [...] by: - Prachi Name/phone of DC driver sales: ... [phone] Medications held: off blood thinners (Eliquis) for [...] If the visitor has positive symptoms, notify automobile body repair supervisor/manger Per policy, the visitor will need to leave the facility documented in this encounter Plan of Treatment Upcoming Encounters Date Type Specialty Care Team Description 09/28/2022 Lab Lab 09/28/2022 Office Visit Cardiology Timothy Smith MD [address] [place] [phone] Trudi Grayson APRN MUSIC JOURNALIST [address] 738[address] 11/16/2022 Ancillary Procedure Cardiology Timothy Smith MD [address] [place] [address] (Wo rk) documented as of this encounter [...] The pacemaker leads were removed the pac Clare[employer] BioS[employer]ker generator and were capped. A pocket was [...] Action ICD RESONATE EL VR DF4 - [id number] ICD ICD RESONATE EL VR DF4 [id number] ??1 Implante d LEAD ??RELIANCE ENDOTAK DF4 AF 59 CM 027 2 - [id number] Leads LEAD ??RELIANCE ENDOTAK DF4 AF 59 CM 0272 [id number] 1o1Media [id number] ??1 Implanted STIMULATION THRESHOLDS: RV - ??Sense:8.4 [...] CBC with platelets (07/04/2021 12:48 PM CDT) [facility] Method Time Signature WBC Count 6.9 4.0 [...] Address City/State/ZIP Code Phon e Number LABORATORY [place] [address] [facility] Lab [address] 1st floor, [...] Address City/State/ZIP Code Phon e Number LABORATORY [place] [address] Care Lab [address] 1[address] floor, Room 20B EKG 12-lead, tracing only (07/04/2021 12:15 PM CDT) Component Value Ref Range Test Analysis Performed Pathologis t Method Time At Signature Systolic Blood mmHg RADIOLOGY Pressure RESULTS Diastolic Blood mmHg RADIOLOGY Pressure RESULTS Ventricular Rate 96 BPM RADIOLOGY RESULTS Atrial Rate 94 BPM RADIOLOGY RESULTS FL Interval ms RADIOLOGY RESULTS QRS Duration 140 ms RADIOLOGY RESULTS QT 418 ms RADIOLOGY RESULTS QTc 528 ms RADIOLOGY RESULTS P [place] degrees RADIOLOGY RESULTS R AXIS -79 degrees RADIOLOGY RESULTS T [place] 3 degrees RADIOLOGY RESULTS Interpretation Atrial fibrillation with premature ventricular beats RADIOLOGY ECG Left axis deviation RESULTS Right bundle branch block Inferior infarct , age undetermined Abnormal ECG When compared with ECG of 31-MAY-2018 13:40, Atrial fibrillation has replaced Sinus rhythm Confirmed by MD SAUNDRA, KAUR (1984), magazine editor TIMA CORONEL ([id number]) on 07/05/2021 6:24:46 PM Specimen Anatomical Collection [...] Heriberto Gaston RN) Routine, 3 g, Intravenous, PRE-OP/PRE-FL OCEDURE, Starting on Sun07/04/21 at 1200, For 1 dose, Give dose within 1 hour PRIOR to procedure in pre-procedure area (Outpatients), or, on Patient Care Unit (In patients) PRIOR to arrival in EP lab. Ca ll EP lab to coordinate start time., Indications: Perioperative Pharmacoprophylaxis, Cardiac Pre-procedure Continuous Medication Order 07/02/2021 07/03/202107/04/2021 0.45% sodium chloride infusion (CANCELED) 1305 (New [...] grams documented in this encounter Care Teams Front End Ui Developer Relationship Specialty Start Date End Date Graham Licona MD PCP - General Family Medicine 06/30/21 [facility] [address] [place] [address] Timothy Smith MD Assigned Heart and Vascular 07/23/20 [address] Provider [place] [address] documented as of this encounter
--- OUTSIDE RECORDS SUMMARY | 2022-09-12 09:16 | XMS_ITS | Encounter Summary ---
:1940 Author Organization [place] Address [address] [facility] [place] [address] Care Team Providers Name Role Phone Timothy Smith MD Unavailable Graham Licona MD Primary Care Provider Encounter Details Date Type Department Care Team Description 07/05/2021 [facility] Chris De Leon MD Cardiac pacemaker in Heart Clinic [place] [address] situ (Primary Dx) [address] [facility] [facility] [address] [facility] [address] [place] [address] [place] [phone] Social History Tobacco Use Types Packs/Day Years [...] 09/28/2022 Office Visit Cardiology Timothy Smith MD [address] [place] [phone] Trudi Grayson APRN JAVA J2EE SOFTWARE ENGINEER [address] [place] [id number] 11/16/2022 Ancillary Procedure Cardiology Timothy Smith MD [address] [place] [address] (Wo rk) documented as of this encounter Visit Diagnoses Diagnosis Cardiac pacemaker in situ - Primary documented in this encounter Care Teams Lining Caser Relationship Specialty Start Date End Date Graham Licona MD PCP - General Family Medicine 06/30/21 [facility] [address] [place] [address] Timothy Smith MD Assigned Heart and Vascular 07/23/20 [address] Provider [place] [id number] documented as of this encounter
--- OUTSIDE RECORDS SUMMARY | 2022-09-12 09:16 | XMS_ITS | Encounter Summary ---
:1940 Author Organization [place] Address [address] [facility] [place] [address] Care Team Providers Name Role Phone Timothy Smith MD Unavailable Graham Licona MD Primary Care Provider Reason for Visit CV Testing (Routine) - Closed Specialty Diagnoses / Procedures Referred By Contact Refer red To Contact Diagnoses Cardiac pacemaker in situ Chris De Leon MD Procedures Cardiac Device Check - Remote (Post implant follow up) [address] [place] [address] Referral ID Status Reason Start Date Expiration Date Visits Requ ested Visits Authorized [id number] Closed 07/05/2021 07/05/2022 1 1 Encounter Details Date Type Department Care Team Description 11/23/2021 Ancillary Procedure [facility] Chris De Leon, Cardiac pacemaker in [facility] situ Heart Care [address] [facility] [address] [place] [address] [place] [address] [phone] Social History Tobacco Use Types Packs/Day Years [...] [address] [place] [phone] Trudi Grayson APRN PLATING INSPECTOR [address] [id number] 11/16/2022 Ancillary Procedure Cardiology Timothy Smith MD [address] [place] [id number] (Wo rk) documented as of this encounter Procedures Procedure Name Priority Date/Time Associated Comments Diagnosis INTERROGATION DEVICE Routine 11/24/2021 1:06 PM Cardiac pacema ker Results for this EVAL REMOTE ICD UP TO CANARY BREEDER in situ proced ure are in 90 the results section. documented in this encounter Results INTERROGATION DEVICE EVAL REMOTE ICD UP TO 90 (11/24/2021 1:06 PM CANARY BREEDER) Component Value Ref Test Analysis Performed Pathologis t Range Method Time At Signature Date Time [employer] Interrogation Session Implantable [employer] [employer] Pulse Generator Compressor Assembler Implantable D432 RESONATE EL [employer] Pulse Generator ICD Model Implantable 280406 [employer] Pulse Generator Serial Number Type Remote [employer] Interrogation Session Clinic Name [place] [employer] Implantable Defibrillator [employer] Pulse Generator Type Implantable [id number] [employer] Pulse Generator Implant Date Implantable Lead [employer] Compressor Assembler Implantable Lead 0272 Sun[place] [employer] Model 4-Site S Implantable Lead 620300 [employer] Serial Number Implantable Lead [id number] [employer] Implant Date Implantable Lead Bipolar Lead [...] Capacitor Charge Reformation [employer] Type Capacitor Last [phone] [employer] Charge Date Time Capacitor Charge 9.1 s [employer] Time Brandon Statistic [id number] [employer] Date Time Start Brandon Statistic [id number] [employer] Date Time End Brandon Statistic 3 % [employer] RV Percent Paced Therapy 0 [employer] Statistic Recent Shocks Delivered Therapy 0 MEDTRONIC Statistic Recent Shocks Aborted Therapy 0 MEDTRONIC Statistic Recent ATP Delivered Therapy [id number] [employer]IC Statistic Recent Date Time Start Therapy [id number] [employer]IC Statistic Recent Date Time End Therapy 0 MEDTRONIC Statistic Total Shocks Delivered Therapy 0 MEDTRONIC Statistic Total Shocks Aborted Therapy 8 [employer]IC Statistic Total ATP Delivered Therapy [id number] [employer] Statistic Total Date Time End Episode [...] VT-1 [employer]TR[employer] Statistic Vendor Type Category Episode [id number] [employer] Statistic Recent Date Time Start Episode [id number] [employer] Statistic Recent Date Time End Episode [id number] [employer] Statistic Recent Date Time Start Episode [id number] [employer] Statistic Recent Date Time End Episode [id number] [employer] Statistic Recent Date Time Start Episode [id number] [employer] Statistic Recent Date Time End Episode [id number] [employer]TR[employer] Statistic Recent Date Time Start Episode [id number] [employer] Statistic Recent Date Time End Episode [id number] [employer] Statistic Recent Date Time Start Episode [id number] [employer] Statistic Recent Date Time End Episode APM-55 [employer] Identifier Episode Type Periodic EGM [employer] Category Episode Date [id number] [employer] Time Episode RVAT-160 [employer] Identifier Episode Type Other [employer] Category Episode Date [id number] [employer] Time Anatomical Region Laterality Modality Other Specimen (Source) Anatomical Collection Method Collection Time Re ceived Time Location / / Volume Laterality 11/23/2021 12:40 AM CANARY BREEDER Narrative 12/04/2021 10:04 AM CANARY BREEDER [employer] Resonate (S) ICD Remote Device Check JEWEL STAKER: 3 % ?? Mode: VVIR 50-130 ?? [...] situ documented in this encounter Care Teams Dinkey Engine Firer Relationship Specialty Start Date End Date Graham Licona MD PCP - General Family Medicine 06/30/21 [facility] [address] [place] [address] Timothy Smith MD Assigned Heart and Vascular 07/23/[address] Provider [place] [address] documented as of this encounter
--- OUTSIDE RECORDS SUMMARY | 2022-09-12 09:16 | XMS_ITS | Encounter Summary ---
:1940 Author Organization [place] Address [address] [facility] [place] [address] Care Team Providers Name Role Phone Timothy [...] 09/28/2022 Office Visit Cardiology Timothy Smith MD [address] [place] 110405 Trudi Grayson APRN SENIOR ADMINISTRATIVE SERVICES OFFICER [address] [id number] 11/16/2022 Ancillary Procedure Cardiology Timothy Smith MD [address] [place] [id number] (Wo rk) documented as of this encounter Visit Diagnoses Not on filedocumented in this encounter Care Teams Credit Advisor Relationship Specialty Start Date End Date Graham Licona MD PCP - General Family Medicine 06/30/21 [facility] [address] [place] [address] Timothy Smith MD Assigned Heart and Vascular 07/23/20 [address] Provider [place] [id number] documented as of this encounter
--- OUTSIDE RECORDS SUMMARY | 2022-09-12 09:16 | XMS_ITS | Encounter Summary ---
:1940 Author Organization [place] Address [facility] [place] [address] Care Team Providers Name Role Phone Timothy Smith MD Unavailable Graham Licona MD Primary Care Provider Encounter Details Date Type Department Care Team Description 07/01/2021 Lab [facility] for screening for Hospital other viral diseases [address] [place] [address] Social History Tobacco Use [...] 09/28/2022 Office Visit Cardiology Timothy Smith MD [address] [place] [address] Trudi Grayson APRN THERMAL SPRAY OPERATOR [address] [id number] 11/16/2022 Ancillary Procedure Cardiology Timothy Smith MD [address] [place] [address] (Wo rk) documented as of this encounter [...] using the Aptima SARS-CoV-2 Assay on the [employer] Instrument System. Additional in formation about this [...] Code Phon e Number [facility] [place] [address] Diag. Lab [address] [facility], Room D297 [facility] Infectious [place], [place] [phone] Diseases Diagnostic [phone], [facility] Lab (IDDL) [address] [facility], Room D297 documented in this encounter Visit Diagnoses Diagnosis Encounter for screening for other viral diseases documented in this encounter Care Teams Route Carrier Relationship Specialty Start Date End Date Graham Licona MD PCP - General Family Medicine 06/30/21 [facility] [address] [place] [address] Timothy Smith MD Assigned Heart and Vascular 07/23/20 [address] [facility] [address] Provider [place] [id number] documented as of this encounter
--- OUTSIDE RECORDS SUMMARY | 2022-09-12 09:16 | XMS_ITS | Encounter Summary ---
:1940 Author Organization [place] Address [address] [place] [address] Care Team Providers Name Role Phone Slava Hernandez PA-C Primary Care Provider Timothy Smith MD Unavailable Encounter Details Date Type Department Care Team Description 06/29/[address] [facility] Tony Reyes Sustai ned [facility] RN (ventricu lar Heart Care tachycardia) (H) [address] [facility] (Primary Dx) [facility] [address] [place] [phone] Social [...] [address] [place] [id number] Trudi Grayson APRN WATCH AND CLOCK REPAIR CLERK [address] 513645 11/16/2022 Ancillary Procedure Cardiology Timothy Smith MD [address] [place] [id number] (Wo rk) documented as of this encounter Visit Diagnoses Diagnosis Sustained VT (ventricular tachycardia) - Primary Paroxysmal ventricular tachycardia documented in this encounter Care Teams Psych Np Relationship Specialty Start Date End Date Slava Hernandez, PCP - General Physician Candle Wrapping Machine Operator 07/02/1806/02 PA-C [facility] [address] [place] [address] Timothy Smith MD Assigned Heart and 07/23/20 [address] V[address] Provider [address] [place] [id number] documented as of this encounter
--- OUTSIDE RECORDS SUMMARY | 2022-09-12 09:16 | XMS_ITS | Encounter Summary ---
:1940 Author Organization [place] Address [address] [place] [address] Care Team Providers Name Role Phone Timothy Smith MD Unavailable Graham Licona MD Primary Care Provider Reason for Visit Reason Onset Date Comments Implantable Devices 08/02/2021 Encounter Details Date Type Department Care Team Description 08/02/2021 Telephone [facility] Sandrine Whitman Implantable Devices [facility] Heart Care [address] [place] [phone] Social History Tobacco Use Types Packs/Day [...] 08/01/2021 at 0923. EGM shows VT lasting [id number] with V rates [id number]. ATPx7 was delivered with rhythm breaking after [...] 09/28/2022 Office Visit Cardiology Timothy Smith MD [address] [place] [address] Trudi Grayson APRN SUPERVISOR ACCOUNTING CLERKS [address] [place] [address] 11/16/2022 Ancillary Procedure Cardiology Timothy Smith MD [address] [place] [phone] (Wo rk) documented as of this encounter Visit Diagnoses Not on filedocumented in this encounter Care Teams Shipbuilding Draftsperson Relationship Specialty Start Date End Date Graham Licona MD PCP - General Family Medicine 06/30/21 [facility] [address] [place] [address] Timothy Smith MD Assigned Heart and Vascular 07/23/20 [address] Provider [place] [id number] documented as of this encounter
--- OUTSIDE RECORDS SUMMARY | 2022-09-12 09:16 | XMS_ITS | Encounter Summary ---
:1940 Author Organization [place] Address [address] [place] [address] Care Team Providers Name Role Phone Timothy Smith MD Unavailable Graham Licona MD Primary Care Provider Reason for Visit CV Testing (Routine) - Closed Specialty Diagnoses / Procedures Referred By Contact Refer red To Contact Diagnoses Cardiac pacemaker in situ Chris De Leon MD Procedures Cardiac Device Check - In Clinic (Post implant follow up) [address] [place] [address] Referral ID Status Reason Start Date Expiration Date Visits Requ ested Visits Authorized [id number] Closed 07/05/2021 07/05/2022 1 1 Encounter Details Date Type Department Care Team Description 08/24/2021 Ancillary Procedure [facility] Chris De Leon, Cardiac pacemaker in [facility] situ Heart Care [address] [facility] [address] [place] [address] [place] [address] [phone] Social History Tobacco Use Types Packs/Day Years Used Date Smoking Tobacco: Never Smokeless Tobacco: Never Alcohol Use Standard Drinks/Week Comments No 0 (1 standard drink = 0.6 oz pure alcoho l) Sex Assigned at Date Recorded Not on file COVID-19 Exposure Response Date Recorded In the last month, have you been in contact with No / Unsure 08/24/2021 10:48 AM FIRE HAZARD INSPECTOR someone who was confirmed or suspected to have Coronavirus / COVID-19? documented as of this encounter Plan of Treatment Upcoming Encounters Date Type Specialty Care Team Description 09/28/2022 Lab Lab 09/28/2022 Office Visit Cardiology Timothy Smith MD [address] [place], [place] [phone] Trudi Grayson APRN CNP [address] [place] [phone] 11/16/2022 Ancillary Procedure Cardiology Timothy Smith MD [address] [place] [id number] (Wo rk) documented as of this encounter Procedures Procedure Name Priority Date/Time Associated Comments Diagnosis ICD DEVICE Routine 08/24/2021 11:02 Cardiac pacemaker Result s for this PROGRAMMING EVAL, AM FIRE HAZARD INSPECTOR in situ procedure are in DUAL LEAD ICD the results section. documented in this encounter Results ICD DEVICE PROGRAMMING EVAL, DUAL LEAD ICD (08/24/2021 11:02 AM FIRE HAZARD INSPECTOR) Component Value Ref Test Analysis Performed PathLovely t Range Method Time At Signature Date Time [id number] [employer] Interrogation Session Implantable [employer] Pulse Generator Music Director Implantable D432 RESONATE EL [employer] Pulse Generator ICD Model Implantable [id number] [employer] Pulse Generator Serial Number Type In Clinic [facility] Interrogation Session Clinic Name [place] [facility] Implantable Defibrillator [employer] Pulse Generator Type Implantable [id number] [employer] Pulse Generator Implant Date Implantable Lead [employer] Music Director Implantable Lead [address] [place] [employer] Model 4-Site S Implantable Lead [id number] [employer] Serial Number Implantable Lead [id number] [employer] Implant Date Implantable Lead Bipolar Lead [...] [employer]IC Pacing Threshold Pulse Width Battery Date [id number] [employer] Time of Measurements Battery Status Beginning of [employer] Service Battery 174 mo [employer] Remaining Longevity Battery 100 % [employer] Remaining Percentage Capacitor Charge Reformation [employer] Type Capacitor Last [id number] [employer] Charge Date Time Capacitor Charge 9.1 s [employer]IC Time Brandon Statistic [id number] [employer]TR[employer]IC Date Time Start Brandon Statistic [id number] [employer]IC Date Time End Brandon Statistic 4 % [employer]IC RV Percent Paced Therapy 0 [employer]IC Statistic Recent Shocks Delivered Therapy 0 MEDTRONIC Statistic Recent Shocks Aborted Therapy 8 [employer]TRONIC Statistic Recent ATP Delivered Therapy [id number] [employer]IC Statistic Recent Date Time Start Therapy [id number] [employer] Statistic Recent Date Time End Therapy 0 [employer]TRONIC Statistic Total Shocks Delivered Therapy 0 [employer]TRONIC Statistic Total Shocks Aborted Therapy 8 [employer]TR[employer]IC Statistic Total ATP Delivered Therapy [id number] [employer] Statistic Total Date Time End Episode [...] VT-1 [employer]TR[employer] Statistic Vendor Type Category Episode [id number] [employer] Statistic Recent Date Time Start Episode [id number] [employer] Statistic Recent Date Time End Episode [id number] [employer] Statistic Recent Date Time Start Episode [id number] [employer] Statistic Recent Date Time End Episode [id number] [employer] Statistic Recent Date Time Start Episode [id number] [employer] Statistic Recent Date Time End Episode [id number] [employer] Statistic Recent Date Time Start Episode [id number] [employer] Statistic Recent Date Time End Episode [id number] [employer] Statistic Recent Date Time Start Episode [id number] [employer] Statistic Recent Date Time End Episode APM-11 [employer] Identifier Episode Type Periodic EGM [employer] Category Episode Date [id number] [employer] Time Anatomical Region Laterality Modality Other Specimen (Source) Anatomical Collection Method Collection Time Re ceived Time Location / / Volume Laterality 08/24/2021 11:09 AM FIRE HAZARD INSPECTOR Narrative 09/06/2021 1:31 PM FIRE HAZARD INSPECTOR [employer] Scientific Resonate (S) ICD Device Check Patient seen in clinic for device evalua tion and iterative programming. ?? ENGINEER RF DEPLOYMENT: 4% ?? Mode: VVIR 50-130 ?? Underlying [...] with V ra barbara of 200-210 for 5qyc0tqf and 4wtb8zbw. Both episodes received ATPx6 a nd was successful after the 6th attempt. VT episode on 08/01/21 at 0923 E GM shows VT for 9lhs60zbx with V rates of 180-210bpm, ATPx7 was delivered and was successful after the 7th ATP attempt. The other episode of VT occ urred on 07/23/21 at 0832 EGM shows 3siz5vgv of VT with V rates of 200 [...] situ documented in this encounter Care Teams Demonstrator Sewing Techniques Relationship Specialty Start Date End Date Graham Licona MD PCP - General Family Medicine 06/30/21 [facility] [address] [place] [address] Timothy Smith MD Assigned Heart and Vascular 07/23/20 [address] Provider [place] [address] documented as of this encounter
--- OUTSIDE RECORDS SUMMARY | 2022-09-12 09:16 | XMS_ITS | Encounter Summary ---
:1940 Author Organization [place] Address [address] [facility] [place] [address] Care Team Providers Name Role Phone Timothy Smith MD Unavailable Graham Licona MD Primary Care Provider Reason for Visit Reason Onset Date Comments Implantable Devices 09/12/2021 [facility]Logic alert Encounter Details Date Type Department Care Team Description 09/12/2021 Telephone [facility] Sintia Muhammad, Impl antable Devices [facility] RN (HeartLog ic alert) Heart Care [address] [place] [address] [place] [phone] Social History Tobacco Use Types Packs/Day Years Used Date Smoking Tobacco: Never Smokeless Tobacco: Never Alcohol Use Standard Drinks/Week Comments No 0 (1 standard drink = 0.6 oz pure alcoho l) Sex Assigned at Date Recorded Not on file COVID-19 Exposure Response Date Recorded In the last month, have you been in contact with No / Unsure 08/24/2021 10:48 AM SLOT AMBASSADOR someone who was confirmed or suspected to [...] to monitor at this time. SIENNA Hatch AMBASSADOR Telephone Encounter - Sintia Muhammad RN - [...] understanding and appreciation for call. SIENNA Hatch AMBASSADOR Telephone Encounter - Timothy Smith MD - 09/13/2021 4:28 PM CST I am not able to manage heart failure with frequent visit. This patient has severe renal insufficiency. The first step may be with his PMD for evaluation and diuretic titration. If that does not work, then CORE clinic is recommended. AMBASSADOR Telephone Encounter - Sintia Muhammad RN - 09/12/2021 12:01 PM CST Images from the original note were not included. [place] ICD remote alert received for HeartLogic at [...] after shehas reviewed the information. SIENNA Hatch AMBASSADOR documented in this encounter Plan of Treatment Upcoming Encounters Date Type Specialty Care Team Description 09/28/2022 Lab Lab 09/28/2022 Office Visit Cardiology Timothy Smith MD [address] [place] [phone] Trudi Grayson APRN FLY MAKER [address] 909125 11/16/2022 Ancillary Procedure Cardiology Timothy Smith MD [address] [place] [id number] (Wo rk) documented as of this encounter Visit Diagnoses Not on filedocumented in this encounter Care Teams Diesel Engine Pipe Fitter Relationship Specialty Start Date End Date Graham Licona MD PCP - General Family Medicine 06/30/21 [facility] [address] [place] [address] Timothy Smith MD Assigned Heart and Vascular 07/23/20 [address] Provider [place] [id number] documented as of this encounter
--- OUTSIDE RECORDS SUMMARY | 2022-09-12 09:16 | XMS_ITS | Encounter Summary ---
:1940 Author Organization [place] Address [address] [place] [address] Care Team Providers Name Role Phone Timothy Smith MD Unavailable Graham Licona MD Primary Care Provider Reason for Visit Auth/Cert Specialty Diagnoses / Procedures Referred By Contact Refer red To Contact Med Surg Diagnoses Sustained VT (ventricular tachycardia) Cardiac pacemaker in situ VT Care Suites Procedures HC ICD IMPLANT, SINGLE / DUAL W LEAD INSERTION/REPOSITIONING Implantable Cardioverter-Defibrillator (ICD) [address] [address] Phone: Referral ID Status Reason Start Date Expiration Date Visits Requ ested Visits Authorized [id number] 1 1 Encounter Details Date Type Department Care Team Description 07/04/[address] [facility] Timothy Smith MD [address] [place] [address] Sustained VT (ventricular tachycardia) ( H); [facility] Kaur De Leon MD [address] [place] [address] Cardiac [...] If you need to change it, use 4j8-bwkk gauze and a large clear bandage. ??? [...] 10 minutes. ??? Once bleeding stops, call [facility] Heart Clinic as soon as you [...] ??? Follow up with Device Clinic at [facility] Heart Clinic of patient preference in [...] says you have a defibrillator (ICD). Go [email or web address]. ??? Always tell doctors, dentists and other [...] Device Safety: ??? Please refer to device order processing clerk???s booklet for further information. [facility] [place]: [phone] UM (7 days a week) documented in [...] Coronary artery disease minutes as needed involving chicken ranch coronary for chest pain artery of chicken ranch heart without angina pectoris omeprazole (PRILOSEC) 20 [...] Accompanied by: - Prachi Name/phone of [place] airport driver: ... [phone] Medications held: off blood thinners (Eliquis) for [...] the visitor has positive symptoms, notify supervisor beam department/manger Per policy, the visitor will need to leave the facility documented in this encounter Plan of Treatment Upcoming Encounters Date Type Specialty Care Team Description 09/28/2022 Lab Lab 09/28/2022 Office Visit Cardiology Timothy Smith MD [address] [place] [address] Trudi Grayson, PIPE FITTER STREET SERVICE PROTECTIVE SIGNAL OPERATIONS SUPERVISOR [address] [place] [address] 11/16/2022 Ancillary Procedure Cardiology Timothy Smith MD [address] [place], [place] [address]455 (Wo rk) documented as of this encounter [...] The pacemaker leads were removed the pac Intexysker generator and were capped. A pocket was [...] Action ICD RESONATE EL VR DF4 - [id number] ICD ICD RESONATE EL VR DF4 [id number] [employer] [place] [id number] ??1 Implante d LEAD ??RELIANCE ENDOTAK DF4 AF 59 CM 027 2 - [id number] Leads LEAD ??RELIANCE ENDOTAK DF4 AF 59 CM 0272 [id number] [employer] [place] [id number] ??1 Implanted STIMULATION THRESHOLDS: RV - ??Sense:8.4 mV, Threshold: 0.5 V @ 0.4-0.5 ms, Impedance: 583 ohms COMPLICATIONS: None CONCLUSION: 1. Uneventful upgrading of pacemaker to a single-chamber implantable cardioverter defibrillator 2. 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 Will defer to Dr. Smith for treatment Kaur De Leon, MD Timothy Smith MD CV ELECTROPHYSIOLOGY ORDERAB [...] STRUCTURE OF LEFT Venipuncture / 07/04/2021 12:48 100 12/2020 UPPER LIMB / Unknown PM CDT 12:52 PM CDT Unknown Timothy Smith MD LAB - BLOOD ORDERABLES Performing Organization Address City/State/ZIP Code Phon e Number LABORATORY [facility] [place] [address] [facility] [address] 1st floor, [...] Address City/State/ZIP Code Phon e Number LABORATORY [facility] [place] [address] [phone] Care Lab [address] 1st floor, Room 20B EKG 12-lead, tracing only (07/04/2021 12:15 PM CDT) Component Value Ref Range Test Analysis Performed Pathologis t Method Time At Signature Systolic Blood mmHg RADIOLOGY Pressure RESULTS Diastolic Blood mmHg RADIOLOGY Pressure RESULTS Ventricular Rate 96 BPM RADIOLOGY RESULTS Atrial Rate 94 BPM RADIOLOGY RESULTS NM Interval ms RADIOLOGY RESULTS QRS Duration 140 ms RADIOLOGY RESULTS QT 418 ms RADIOLOGY RESULTS QTc 528 ms RADIOLOGY RESULTS P Enid degrees RADIOLOGY RESULTS R AXIS -79 degrees RADIOLOGY RESULTS T Enid 3 degrees RADIOLOGY RESULTS Interpretation Atrial fibrillation with premature ventricular beats RADIOLOGY ECG Left axis deviation RESULTS Right bundle branch block Inferior infarct , age undetermined Abnormal ECG When compared with ECG of 31-MAY-2018 13:40, Atrial fibrillation has replaced Sinus rhythm Confirmed by MD SAUNDRA, KAUR ([id number]), desk editor TIMA CORONEL ([id number]) on 07/05/2021 6:24:46 PM Specimen Anatomical Collection [...] Heriberto Gaston, RN) Routine, 3 g, Intravenous, PRE-OP/PRE-NM OCEDURE, Starting on Sun07/04/21 at 1200, For [...] grams documented in this encounter Care Teams Improvement Manager Relationship Specialty Start Date End Date Graham Licona MD PCP - General Family Medicine 06/30/21 [facility] [address] [place] [address] Timothy Smith MD Assigned Heart and Vascular 07/23/20 [address] [facility] [address] [address] Provider [place] [address] documented as of this encounter
--- OUTSIDE RECORDS SUMMARY | 2022-09-12 09:16 | XMS_ITS | Encounter Summary ---
:1940 Author Organization [place] Address [address] [facility] [place] [address] Care Team Providers Name Role Phone Timothy [...] contact Unable to assess 12/02/2021 12:08 PM COTA with someone who was confirmed or suspected to have Coronavirus / COVID-19? documented as of this encounter Plan of Treatment Upcoming Encounters Date Type Specialty Care Team Description 09/28/2022 Lab Lab 09/28/2022 Office Visit Cardiology Timothy Smith MD [address] [place] [phone] Trudi Grayson APRN DEBT COUNSELOR [address] [phone] 11/16/2022 Ancillary Procedure Cardiology Timothy Smith MD [address] [place] [id number] (Wo rk) documented as of this encounter Visit Diagnoses Not on filedocumented in this encounter Care Teams Center Director Lead Teacher Relationship Specialty Start Date End Date Graham Licona MD PCP - General Family Medicine 06/30/21 [facility] [address] [place] [address] Timothy Smith MD Assigned Heart and Vascular 07/23/20 [address] Provider [place] [address] documented as of this encounter
--- OUTSIDE RECORDS SUMMARY | 2022-09-12 09:16 | XMS_ITS | Encounter Summary ---
:1940 Author Organization [place] Address [address] [facility] [place] [address] Care Team Providers Name Role Phone Timothy Smith MD Unavailable Graham Licona MD Primary Care Provider Encounter Details Date Type Department Care Team Description 07/05/2021 Telephone [facility] Keyshawn Myers RN [facility] Heart [address] [place] [address] Social History Tobacco Use Types [...] device check scheduled: 07/14/21 at 11:00am in [place]. Pt states understanding of all instructions. documented in this encounter Plan of Treatment Upcoming Encounters Date Type Specialty Care Team Description 09/28/2022 Lab Lab 09/28/2022 Office Visit Cardiology Timothy Smith MD [address] [place] [address] Trudi Grayson, FLACO LEGAL FINANCIAL SPECIALIST [address] 3694[address] 11/16/2022 Ancillary Procedure Cardiology Timothy Smith MD [address] [place] [id number] (Wo rk) documented as of this encounter Visit Diagnoses Not on filedocumented in this encounter Care Teams Commodity Supervisor Relationship Specialty Start Date End Date Graham Licona MD PCP - General Family Medicine 06/30/21 [facility] [address] [place] [address] Timothy Smith MD Assigned Heart and Vascular 07/23/20 [address] Provider [place] [id number] documented as of this encounter
--- OUTSIDE RECORDS SUMMARY | 2022-09-12 09:16 | XMS_ITS | Encounter Summary ---
:1940 Author Organization [place] Address [address] [place] [address] Care Team Providers Name Role Phone Timothy Smith MD Unavailable Graham Licona MD Primary Care Provider Reason for Visit CV Testing (Routine) - Closed Specialty Diagnoses / Procedures Referred By Contact Refer red To Contact Diagnoses Cardiac pacemaker in situ Chris De Leon MD Procedures Cardiac Device Check - In Clinic (Post implant follow up) [address] [place] [id number] Referral ID Status Reason Start Date Expiration Date Visits Requ ested Visits Authorized [id number] Closed 07/05/2021 07/05/2022 1 1 Encounter Details Date Type Department Care Team Description 07/14/2021 Ancillary Procedure [facility] Chris De Leon, Cardiac pacemaker in [facility] situ Heart Care [address] [facility] [address] [place] [address] [place] [address] [phone] Social History Tobacco Use Types Packs/Day Years [...] [address] [place] [address] Trudi Grayson APRN TMH TEACHER [address] [place], [place] [address] 11/16/2022 Ancillary Procedure Cardiology Timothy Smith MD [address] [place] [id number] (Wo rk) documented as of this encounter [...] Range Method Time At Signature Date Time [id number] [employer] Interrogation Session Implantable [place] [employer]IC Pulse Generator Home Care Liaison Implantable D432 RESONATE EL MEDTRONIC Pulse Generator ICD Model Implantable 960025 MEDTRONIC Pulse Generator Serial Number Type In Clinic MEDTRONIC Interrogation Session Clinic Name [place] [facility]IC Implantable Defibrillator MEDTRONIC Pulse Generator Type Implantable [id number] MEDTRONIC Pulse Generator Implant Date Implantable Lead [place] [employer] ON[employer] Home Care Liaison Implantable Lead 0272 [place] MEDTRONIC Model 4-Site S Implantable Lead 924151 MEDTRONIC Serial Number Implantable Lead [id number] MEDTRONIC Implant Date Implantable Lead Bipolar Lead [...] 0 MEDTRONIC Statistic Total ATP Delivered Therapy [id number] MEDTRONIC Statistic Total Date Time End Therapy 0 MEDTRONIC Statistic Recent Shocks Delivered Therapy 0 MEDTRONIC Statistic Recent Shocks Aborted Therapy 0 MEDTRONIC Statistic Recent ATP Delivered Therapy SunJul 04 [employer]TRONIC Statistic Recent 11:45:37 CDT 2020 Date Time Start Therapy [id number] MEDTRONIC Statistic Recent Date Time End Episode 61 MEDTRONIC Statistic Total Count Episode VT MEDTRONIC Statistic Type Category Episode NSVT MEDTRONIC Statistic Vendor Type Category Episode 0 MEDTRONIC Statistic Total Count Episode VF MEDTRONIC Statistic Type Category Episode VF MEDTRONIC Statistic Vendor Type Category Episode 0 MEDTRONIC Statistic Total Count Episode [id number] MEDTRONIC Statistic Type Category Episode [id number] MEDTRONIC Statistic Total Date Time End Episode [id number] MEDTRONIC Statistic Total Date Time End Episode [id number] MEDTRONIC Statistic Total Date Time End Episode [...] 11:45:37 CDT 2020 Date Time Start Episode [id number] [employer]TRONIC Statistic Recent Date Time End Episode SunJul 04 [employer]TR[employer]IC Statistic Recent 11:45:37 CDT 2020 Date Time Start Episode [id number] MEDTRONIC Statistic Recent Date Time End Episode SunJul 04 [employer]IC Statistic Recent 11:45:37 CDT 2020 Date Time Start Episode [id number] [employer]TRONIC Statistic Recent Date Time End Anatomical Region Laterality Modality Other Specimen (Source) Anatomical Collection Method Collection Time Re ceived Time Location / / Volume Laterality 07/14/2021 11:37 AM CDT Narrative 07/18/2021 1:08 PM CDT [employer] ??7 Day Post Upgrade to ICD and PPM removal Device Check Patient seen in clinic for device evalua tion and iterative programming. 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 Mode: VVIR 50-130 ?? [...] situ documented in this encounter Care Teams Geospatial Specialist Relationship Specialty Start Date End Date Graham Licona MD PCP - General Family Medicine 06/30/21 [facility] [address] [place] [address] Timothy Smith MD Assigned Heart and Vascular 07/23/20 [address] Provider [place] [address] documented as of this encounter
--- OUTSIDE RECORDS SUMMARY | 2022-09-12 09:16 | XMS_ITS | Encounter Summary ---
:1940 Author Organization [place] Address [address] [facility] [address] Care Team Providers Name Role Phone Timothy [...] with No / Unsure 08/24/2021 10:48 AM IN FILE OPERATOR someone who was confirmed or suspected to have Coronavirus / COVID-19? documented as of this encounter Plan of Treatment Upcoming Encounters Date Type Specialty Care Team Description 09/28/2022 Lab Lab 09/28/2022 Office Visit Cardiology Timothy Smith MD [address] [place] [id number] Trudi Grayson APRN MATCH MARKER [address] [place] [id number] 11/16/2022 Ancillary Procedure Cardiology Timothy Smith MD [address] [place] [id number] (Wo rk) documented as of this encounter Visit Diagnoses Not on filedocumented in this encounter Care Teams Revenue Cycle Manager Relationship Specialty Start Date End Date Graham Licona MD PCP - General Family Medicine 06/30/21 [facility] [address] [place] [address] Timothy Smith MD Assigned Heart and Vascular 07/23/20 [address] [facility] [address] Provider [place] [address] documented as of this encounter
--- OUTSIDE RECORDS SUMMARY | 2022-09-12 09:16 | XMS_ITS | Encounter Summary ---
:1940 Author Organization [place] Address [address] [facility] [place] [place] [address] Care Team Providers Name Role Phone Timothy Smith MD Unavailable Graham Licona MD Primary Care Provider Encounter Details Date Type Department Care Team Description 07/14/2021 Documentation Only [facility] Heart Trung, S ananda C, Clinic [place] [address] [facility] [address] [facility] [address] [place] [address] [place] [phone] (Wo rk) Social History Tobacco Use Types [...] [address] [place] [id number] Trudi Grayson, FLACO HOIST MECHANIC [address] [place] [address] [address] 11/16/2022 Ancillary Procedure Cardiology Timothy Smith MD [address] [place] [id number] (Wo rk) documented as of this encounter Visit Diagnoses Not on filedocumented in this encounter Care Teams Ticket Scheduler Relationship Specialty Start Date End Date Graham Licona MD PCP - General Family Medicine 06/30/21 [facility] [address] [place] [address] Timothy Smith MD Assigned Heart and Vascular 07/23/20 [address] Provider [place] [id number] documented as of this encounter
--- OUTSIDE RECORDS SUMMARY | 2022-09-12 09:17 | XMS_ITS | Encounter Summary ---
:1940 Author Organization [place] Address [address] [facility] [place] [address] Care Team Providers Name Role Phone Slava Hernandez PA-C Primary Care Provider Timothy Smith MD Unavailable Reason for Visit Reason Comments Atrial Fib ekg done (Routine) - Closed Specialty Diagnoses / Procedures Referred By Contact Refer red To Contact Diagnoses Sustained [place] (ventricular tachycardia) Timothy Smith MD [address] [place] [address] Referral ID Status Reason Start Date Expiration Date Visits Requ ested Visits Authorized [id number] Closed 03/23/2021 03/23/2022 1 1 Encounter Details Date Type Department Care Team Description 04/26/2021 Office Visit [facility] Timothy Smith MD Persistent atrial fibrillation (H) (Prim arnie Dx); [facility] [place] [address] Sustained [place] (ventricular ta chycardia) (H); [address] [facility] [address] Morbid obesity (H) [facility] [address] [place] [address] [place] [phone] Social History Tobacco Use Types Packs/Day Years [...] Timothy Smith MD cc: Slava Hernandez PA-C [facility] [address] [place] [address] Timothy Smith MD MT: francesca Name: RADHA VILLA MRN: [id number] Account: [id number] : 1940 Service Date: 04/26/2021 Document: [id number] Timothy Smith MD - 04/26/2021 12:45 PM [...] Gatherings with Friends and Family: ??? Attends Zoroastrian Services: ??? Active Member of Clubs or [...] [address] [place] [address] documented in this encounter Plan of Treatment Upcoming Encounters Date Type Specialty Care Team Description 09/28/2022 Lab Lab 09/28/2022 Office Visit Cardiology Timothy Smith MD [address] [place] [address] Trudi Grayson APRN INSPECTOR TECHNICIAN [address] [place] [address] 11/16/2022 Ancillary Procedure Cardiology Timothy Smith MD [address] [place] [address] (Wo rk) documented as of this encounter [...] obesity documented in this encounter Care Teams Line Haul Owner Operator Relationship Specialty Start Date End Date Slava Hernandez, PCP - General Physician Mixing Engineer 07/02/1806/02 PA-C [facility] [address] [place], [place] [phone] Timothy Smith MD Assigned Heart and 07/23/20 [address] V[address] Provider [address] [place] [address] documented as of this encounter
--- OUTSIDE RECORDS SUMMARY | 2022-09-12 09:17 | XMS_ITS | Encounter Summary ---
:1940 Author Organization [place] Address [facility] [place] [address] Care Team Providers Name Role Phone Leeroymekhi Jobguadalupe Sameer LÓPEZ Primary Care Provider Timothy Smith MD Unavailable Reason for Visit Reason Onset Date Comments Refill Request 08/25/2020 Eliquis Encounter Details Date Type Department Care Team Description 08/25/2020 Refill M [facility] Zarina Smith MD Refill Request (Eliquis) Clinic [place] [address] [facility] [address] [place] [address] [place] [phone] Social History Tobacco Use Types Packs/Day Years [...] [address] [place] [phone] Trudi Grayson APRN WIND FARM SUPPORT SPECIALIST [address] [place] [id number] 11/16/2022 Ancillary Procedure Cardiology Timothy Smith MD [address] [place] [id number] (Wo rk) documented as of this encounter Visit Diagnoses Diagnosis Paroxysmal atrial fibrillation (H) Atrial fibrillation documented in this encounter Care Teams Game Protector Relationship Specialty Start Date End Date Slava Hernandez, PCP - General Physician Carboy Filler 07/02/1806/02 PA-C [facility] [address] [place] [address] Timothy Smith MD Assigned Heart and 07/23/20 [address] Vascular Provider [address] [place] [id number] documented as of this encounter
--- OUTSIDE RECORDS SUMMARY | 2022-09-12 09:17 | XMS_ITS | Encounter Summary ---
:1940 Author Organization [place] Address [address] [place] [address] Care Team Providers Name Role Phone Slava Hernandez PA-C Primary Care Provider Timothy Smith MD Unavailable Reason for Referral CV Testing (Routine) - Closed Specialty Diagnoses / Procedures Referred By Contact Refer red To Contact Diagnoses Cardiac pacemaker in situ Chris De Leon MD Procedures Cardiac Device Check - In Clinic [address] [place] [address] Referral ID Status Reason Start Date Expiration Date Visits Requ ested Visits Authorized [id number] Closed 11/16/2020 11/16/2021 1 1 SEWER Reason for Visit CV Testing (Routine) - Closed Specialty Diagnoses / Procedures Referred By Contact Refer red To Contact Diagnoses Cardiac pacemaker in situ Chris De Leon MD Procedures Cardiac Device Check - Remote [address] [place] [address] Referral ID Status Reason Start Date Expiration Date Visits Requ ested Visits Authorized [id number] Closed 08/03/2020 08/03/2021 1 1 Encounter Details Date Type Department Care Team Description 11/16/2020 Ancillary Procedure [facility] Chris De Leon Cardiac pacemaker in [facility] situ Heart Care [address] [facility] [address] [place] [address] [place] [phone] Social History Tobacco Use Types Packs/Day Years [...] [address] [place] [phone] Trudi Grayson APRN PRODUCE FIELD MERCHANDISER [address] [place] [address] [address] 11/16/2022 Ancillary Procedure Cardiology Timothy Smith MD [address] [place] [phone] (Wo rk) documented as of this encounter Procedures Procedure Name Priority Date/Time Associated Comments Diagnosis INTERROGATION DEVICE Routine 11/16/2020 11:11 Cardiac pacemake r Results for this EVAL REMOTE PACER UP AM TURN SEWER in situ procedu re are in TO 90 DAYS the results section. documented in this encounter Results PM DEVICE PROGRAMMING EVAL, DUAL LEAD PACER (02/16/2021 9:51 AM CDT) Component Value Ref Test Analysis Performed Pathologis t Range Method Time At Signature Date Time [id number] [employer] Interrogation Session Implantable [place] [employer] Pulse Generator Drilling Manager Implantable L121 [place] EL MEDTRONIC Pulse Generator Model Implantable [id number] MEDTRONIC Pulse Generator Serial Number Type In Clinic MEDTRONIC Interrogation Session Clinic Name [facility] MEDTR[employer]IC Implantable Pacemaker MEDTRONIC Pulse Generator Type Implantable [id number] MEDTRONIC Pulse Generator Implant Date Implantable Lead [facility]O RAUL Drilling Manager Implantable Lead 2088TC Tendril MEDTRONI C Model STS Implantable Lead [id number] MEDTRONIC Serial Number Implantable Lead [id number] MEDTRONIC Implant Date Implantable Lead Bipolar Lead MEDTRONIC Polarity Type Implantable Lead UNKNOWN MEDTRONIC Location Detail 1 Implantable Lead Right Atrium [employer] Location Implantable Lead [facility] [employer] RAUL Drilling Manager Implantable Lead 2088TC Tendril MEDTRONI C Model STS Implantable Lead [id number] MEDTRONIC Serial Number Implantable Lead [id number] MEDTRONIC Implant Date Implantable Lead Bipolar Lead [...] NSVT MEDTRONIC Statistic Vendor Type Category Episode [id number] MEDTRONIC Statistic Total Date Time End Episode 80 MEDTRONIC Statistic Recent Count Episode [place] MEDTRONIC Statistic Type Category Episode NSVT MEDTRONIC Statistic Vendor Type Category Episode SunOct 15 [employer]TR[employer]IC Statistic Recent 03:43:58 TURN SEWER 2019 Date Time Start Episode [id number] [employer]TRONIC Statistic Recent Date Time End Anatomical Region Laterality Modality Other Specimen (Source) Anatomical Location Collection Method / Collectio n Time Received Time / Laterality Volume 02/16/2021 Narrative 02/21/2021 9:24 AM CDT [facility] Essent[employer] (D) Pacemaker Device Check Patient seen in clinic for device evalua tion and iterative programming. AP: NA ?% ?? KNOT TYING OPERATOR: 39 % ?? Mode: VVIR 60-130 ?? [...] UP TO 90 DAYS (11/16/2020 11:11 AM TURN SEWER) Component Value Ref Test Analysis Performed Pathologis t Range Method Time At Signature Date Time MEDTRONIC Interrogation Session Implantable [employer]IC Pulse Generator Drilling Manager Implantable L121 [place] EL [employer]TRONIC Pulse Generator Model Implantable 408489 MEDTRONIC Pulse Generator Serial Number Type Remote MEDTRONIC Interrogation Session Clinic Name [place] [facility]IC Implantable Pacemaker MEDTRONIC Pulse Generator Type Implantable [id number] MEDTRONIC Pulse Generator Implant Date Implantable Lead [facility]O RAUL Drilling Manager Implantable Lead 8TC Tendril MEDTRONI C Model STS Implantable Lead [id number] MEDTRONIC Serial Number Implantable Lead [id number] MEDTRONIC Implant Date Implantable Lead Bipolar Lead MEDTRONIC Polarity Type Implantable Lead UNKNOWN MEDTRONIC Location Detail 1 Implantable Lead Right Atrium [employer]IC Location Implantable Lead [facility] [employer]O RAUL Drilling Manager Implantable Lead 8TC Tendril MEDTRONI C Model STS Implantable Lead [id number] MEDTRONIC Serial Number Implantable Lead [id number] MEDTRONIC [...] 100 % MEDTRONIC Remaining Percentage Brandon Statistic [id number] MEDTRONIC Date Time Start Brandon Statistic [id number] MEDTRONIC Date Time End Brandon Statistic 0 [...] [place] MEDTRONIC Statistic Vendor Type Category Episode [id number] MEDTRONIC Statistic Recent Date Time Start Episode [id number] MEDTRONIC Statistic Recent Date Time End Episode [id number] MEDTRONIC Statistic Recent Date Time Start Episode [id number] MEDTRONIC Statistic Recent Date Time End Episode 05981312254025 MEDTRONIC Statistic Recent Date Time Start Episode [id number] MEDTRONIC Statistic Recent Date Time End Episode [id number] MEDTRONIC Statistic Recent Date Time Start Episode 71122880682411 MEDTRONIC Statistic Recent Date Time End Episode APM-97 MEDTRONIC Identifier Episode Type Periodic EGM MEDTRONIC Category Episode Date [id number] MEDTRONIC Time Episode [id number]-[id number] MEDTRONIC Identifier Episode Type Other MEDTRONIC Category Episode Date [id number] MEDTRONIC Time Episode V-1606 MEDTRONIC Identifier Episode Type VT MEDTRONIC Category Episode Date [id number] MEDTRONIC Time Episode Duration 20 s MEDTRONIC Episode V-1605 MEDTRONIC Identifier Episode Type VT MEDTRONIC Category Episode Date [id number] MEDTRONIC Time Episode Duration 14 s MEDTRONIC Episode V-1604 MEDTRONIC Identifier Episode Type VT MEDTRONIC Category Episode Date 84710371899493 MEDTRONIC Time Episode Duration 17 s MEDTRONIC Episode V-1603 MEDTRONIC Identifier Episode Type VT MEDTRONIC Category Episode Date [id number] MEDTRONIC Time Episode Duration 14 s MEDTRONIC Episode V-1602 MEDTRONIC Identifier Episode Type VT MEDTRONIC Category Episode Vendor VT MEDTRONIC Type Category Episode Date 30333432900773 MEDTRONIC Time Episode Duration 29 s MEDTRONIC Episode V-1601 MEDTRONIC Identifier Episode Type VT MEDTRONIC Category Episode Date [id number] MEDTRONIC Time Episode Duration 16 s MEDTRONIC Episode V-1600 MEDTRONIC Identifier Episode Type VT MEDTRONIC Category Episode Date [id number] MEDTRONIC Time Episode Duration 15 s MEDTRONIC Episode V-1599 MEDTRONIC Identifier Episode Type VT MEDTRONIC Category Episode Vendor VT MEDTRONIC Type Category Episode Date [id number] MEDTRONIC Time Episode Duration 175 s MEDTRONIC Episode V-1598 MEDTRONIC Identifier Episode Type VT MEDTRONIC Category Episode Date [id number] MEDTRONIC Time Episode Duration 14 s MEDTRONIC Episode V-1597 MEDTRONIC Identifier Episode Type VT MEDTRONIC Category Episode Date [id number] MEDTRONIC Time Episode Duration 14 s MEDTRONIC Episode V-1596 MEDTRONIC Identifier Episode Type VT MEDTRONIC Category Episode Date [id number] MEDTRONIC Time Episode Duration 16 s MEDTRONIC Episode V-1595 MEDTRONIC Identifier Episode Type VT MEDTRONIC Category Episode Date [id number] MEDTRONIC Time Episode Duration 16 s MEDTRONIC Episode V-1592 MEDTRONIC Identifier Episode Type VT MEDTRONIC Category Episode Vendor VT MEDTRONIC Type Category Episode Date [id number] MEDTRONIC Time Episode Duration 129 s MEDTRONIC Episode V-1591 MEDTRONIC Identifier Episode Type VT MEDTRONIC Category Episode Vendor VT MEDTRONIC Type Category Episode Date [id number] MEDTRONIC Time Episode Duration 21 s MEDTRONIC Episode V-1590 MEDTRONIC Identifier Episode Type VT MEDTRONIC Category Episode Vendor VT MEDTRONIC Type Category Episode Date [id number] MEDTRONIC Time Episode Duration 66 s MEDTRONIC Episode V-1585 MEDTRONIC Identifier Episode Type VT MEDTRONIC Category Episode Vendor VT MEDTRONIC Type Category Episode Date [id number] MEDTRONIC Time Episode Duration 67 s MEDTRONIC Anatomical Region Laterality Modality Other Specimen (Source) Anatomical Collection Method Collection Time Re ceived Time Location / / Volume Laterality 11/16/2020 12:42 AM TURN SEWER Narrative 11/22/2020 12:22 PM TURN SEWER Parko Essentio (S) Remote PPM Device Check KNOT TYING OPERATOR: 38%, Chronic AFib, taking Eliquis Mode: VVIR Presenting Rhythm: KNOT TYING OPERATOR Heart Rate: adequate heart rates per [...] in this encounter Care Teams Director Of District Office Relationship Specialty Start Date End Date Slava Hernandez, PCP - General Physician Health Policy Manager 07/02/1806/02 PA-C [facility] [address] [place] [address] Timothy Smith MD Assigned Heart and 07/23/20 [address] [facility] [address] Vascular Provider [address] [place] [address] documented as of this encounter
--- OUTSIDE RECORDS SUMMARY | 2022-09-12 09:17 | XMS_ITS | Encounter Summary ---
:1940 Author Organization [place] Address [address] [place] [address] Care Team Providers Name Role Phone Slava Hernandez PA-C Primary Care Provider Timothy Smith MD Unavailable Reason for Visit CV Testing (Routine) - Closed Specialty Diagnoses / Procedures Referred By Contact Refer red To Contact Diagnoses Cardiac pacemaker in situ Timothy Smith MD Procedures Cardiac Device Check - Remote [address] [place] [address] Referral ID Status Reason Start Date Expiration Date Visits Requ ested Visits Authorized [id number] Closed 05/04/2020 05/04/2021 1 1 Encounter Details Date Type Department Care Team Description 08/03/2020 Ancillary Procedure [facility] Timothy Smith MD Cardiac pacemaker in [facility] [address] situ Heart Care [address] [facility] [place] 329 51 [facility] [address] [place] [address] (Work) [phone] Social History Tobacco Use Types Packs/Day Years [...] [address] [place] [id number] Trudi Grayson, FLACO AREA SAFETY MANAGER [address] [place] [id number] 11/16/2022 Ancillary Procedure Cardiology Timothy Smith MD [address] [place] [id number] (Wo rk) documented as of this encounter Procedures Procedure Name Priority Date/Time Associated Comments Diagnosis INTERROGATION DEVICE Routine 08/03/2020 8:56 AM Cardiac pacema ker Results for this EVAL REMOTE PACER UP CRAS in situ procedu re are in TO 90 DAYS the results section. documented in this encounter Results INTERROGATION DEVICE EVAL REMOTE PACER UP TO 90 DAYS (08/03/2020 8:56 AM CRAS) Component Value Ref Test Analysis Performed Pathologis t Range Method Time At Signature Date Time [id number] MEDTRONIC Interrogation Session Implantable [employer] MEDTRONIC Pulse Generator Web Ui Software Engineer Implantable L121 ESSENTIO EL MEDTRONIC Pulse Generator Model Implantable [id number] MEDTRONIC Pulse Generator Serial Number Type Remote MEDTRONIC Interrogation Session Clinic Name [facility] MEDTRONIC Implantable Pacemaker MEDTRONIC Pulse Generator Type Implantable [id number] MEDTRONIC Pulse Generator Implant Date Implantable Lead [facility] MEDTRO RAUL Web Ui Software Engineer Implantable Lead 2087TC Tendril MEDTRONI C Model STS Implantable Lead [id number] MEDTRONIC Serial Number Implantable Lead [id number] MEDTRONIC Implant Date Implantable Lead Bipolar Lead MEDTRONIC Polarity Type Implantable Lead UNKNOWN MEDTRONIC Location Detail 1 Implantable Lead Right Atrium MEDTRONIC Location Implantable Lead [facility]TRO RAUL Web Ui Software Engineer Implantable Lead 2087TC Tendril MEDTRONI C Model STS Implantable Lead [id number] MEDTRONIC Serial Number Implantable Lead [id number] MEDTRONIC Implant Date Implantable Lead Bipolar Lead [...] MEDTRONIC Pacing Threshold Pulse Width Battery Date [id number] MEDTRONIC Time of Measurements Battery Status Beginning of MEDTRONIC Service Battery 132 mo MEDTRONIC Remaining Longevity Battery 100 % MEDTRONIC Remaining Percentage Brandon Statistic [id number] MEDTRONIC Date Time Start Brandon Statistic [id number] MEDTRONIC Date Time End Brandon Statistic 0 [...] [place] MEDTRONIC Statistic Vendor Type Category Episode [id number] MEDTRONIC Statistic Recent Date Time Start Episode [id number] MEDTRONIC Statistic Recent Date Time End Episode [id number] MEDTRONIC Statistic Recent Date Time Start Episode [id number] MEDTRONIC Statistic Recent Date Time End Episode [id number] MEDTRONIC Statistic Recent Date Time Start Episode [id number] MEDTRONIC Statistic Recent Date Time End Episode [id number] MEDTRONIC Statistic Recent Date Time Start Episode [id number] MEDTRONIC Statistic Recent Date Time End Episode APM-96 MEDTRONIC Identifier Episode Type Periodic EGM MEDTRONIC Category Episode Date [id number] MEDTRONIC Time Episode [id number] MEDTRONIC Identifier Episode Type Other MEDTRONIC Category Episode Date [id number] MEDTRONIC Time Episode V-1560 MEDTRONIC Identifier Episode Type [place] MEDTRONIC Category Episode Date [id number] MEDTRONIC Time Episode Duration 13 s MEDTRONIC Episode V-1559 MEDTRONIC Identifier Episode Type [place] MEDTRONIC Category Episode Date [id number] MEDTRONIC Time Episode Duration 19 s MEDTRONIC Episode V-1558 MEDTRONIC Identifier Episode Type [place] MEDTRONIC Category Episode Date [id number] MEDTRONIC Time Episode Duration 11 s MEDTRONIC Episode V-1557 MEDTRONIC Identifier Episode Type [place] MEDTRONIC Category Episode Date [id number] MEDTRONIC Time Episode Duration 11 s MEDTRONIC Episode V-1556 MEDTRONIC Identifier Episode Type [place] MEDTRONIC Category Episode Date [id number] MEDTRONIC Time Episode Duration 29 s MEDTRONIC Episode V-1555 MEDTRONIC Identifier Episode Type [place] MEDTRONIC Category Episode Date [id number] MEDTRONIC Time Episode Duration 13 s MEDTRONIC Anatomical Region Laterality Modality Other Specimen (Source) Anatomical Collection Method Collection Time Re ceived Time Location / / Volume Laterality 08/03/2020 12:41 AM CRAS Narrative 08/04/2020 1:54 PM CRAS Interacting Technology Scientific Essentio (S) Remote PPM Device Check ASSEMBLER FOR PULLER OVER MACHINE: 35%, Chronic AFib, taking Eliquis Mode: VVIR Presenting Rhythm: ASSEMBLER FOR PULLER OVER MACHINE Heart Rate: adequate heart rates per his togram Sensing: stable Pacing Threshold: stable Impedance: stable Battery Status: 11 years remaining Atrial Arrhythmia: n/a Ventricular Arrhythmia: 6 ventricular hi gh rates. 2 EGMs available showing irregular VS events suggestive of RVR, e pisodes lasting 13-19 seconds, rates 88-180bpm. Care Plan: F/u PPM Latitude q 3 months. Postpone annual due to Covid. LM with results. KAE Keen I have [...] documented in this encounter Care Teams Director Mobile Relationship Specialty Start Date End Date Slava Hernandez, PCP - General Physician Roving Tester Laboratory 07/02/1806/02 PA-C [facility] [address] [facility] [place] [address] Timothy Smith MD Assigned Heart and 07/23/20 [address] Vascular Provider [address] [place] [address] documented as of this encounter
--- OUTSIDE RECORDS SUMMARY | 2022-09-12 09:17 | XMS_ITS | Encounter Summary ---
:1940 Author Organization [place] Address [address] [facility] [place] [address] Care Team Providers Name Role Phone Leeroymekhi Slava Estrella PA-C Primary Care Provider Timothy Smith MD Unavailable Reason for Visit Reason Onset Date Comments Prior Auth - Medication 11/04/2020 (ELIQUIS) 5 MG t ablet COST TIER EXPECTION - Denied Encounter Details Date Type Department Care Team Description 11/04/2020 Telephone [facility] Zarina Smith MD Prior Auth - Medication Clinic [place] [address] [facility] [address] ((ELIQUIS) 5 MG tablet [address] [facility] [address] COST TIER EXPECTION - [facility] [address] [place] [address] Denied) [place] [address] Social History Tobacco Use Types Packs/Day [...] nurse for a prescription of Eliquis. JNelosnRN USEL OPERATOR Telephone Encounter - Claire Harvey - 11/05/2020 11:59 AM CST Images from the original note were not included. PRIOR AUTHORIZATION DENIED-Tiering Exception Medication: (ELIQUIS) 5 MG tablet COST TIER EXPECTION - Denied Denial Date: 11/04/2020 Denial Rational: Appeal Information: USEL OPERATOR Telephone Encounter - Monica Nguyen - 11/04/2020 4:11 PM CST Images from the original note were not included. PA Initiation Medication: (ELIQUIS) 5 MG tablet COST TIER EXPECTION - Insurance Company: [employer] - Pharmacy Filling the Rx: [facility] [address] [place] [id number] [place], [place] [address]E Filling Pharmacy Filling Pharmacy Start Date: 11/04/2020 USEL OPERATOR Telephone Encounter - Viola Arcos - 11/04/2020 2:31 PM CST Prior Authorization Retail Medication Request Medication/Dose: apixaban ANTICOAGULANT (ELIQUIS) 5 MG tablet COST TIER EXPECTION ICD code (if different than what is on RX): Previously Tried and Failed: Rationale: Insurance Name: [employer] Insurance ID: Pharmacy Information (if different than what is on RX) Name: Phone: Patient called in stating the medication is too expensive and is over $500. He cannot afford medication. USEL OPERATOR documented in this encounter Plan of Treatment Upcoming Encounters Date Type Specialty Care Team Description 09/28/2022 Lab Lab 09/28/2022 Office Visit Cardiology Timothy Smith MD [address] [place] [address] Trudi Grayson APRN TEEN COUNSELOR [address] [place] [address] [address] 11/16/2022 Ancillary Procedure Cardiology Timothy Smith MD [address] [place] [id number] (Wo rk) documented as of this encounter Visit Diagnoses Not on filedocumented in this encounter Care Teams Guard Range Relationship Specialty Start Date End Date Slava Hernandez, PCP - General Physician Stone Product Fabricator 07/02/1806/02 PA-C [facility] [address] [place] [address] Timothy Smith MD Assigned Heart and 07/23/20 [address] Vascular Provider [address] [place] [address] documented as of this encounter
--- OUTSIDE RECORDS SUMMARY | 2022-09-12 09:17 | XMS_ITS | Encounter Summary ---
:1940 Author Organization [place] Address [address] [facility] [facility] [place] [address] Care Team Providers Name Role Phone Slava eHrnandez PA-C Primary Care Provider Timothy Smith MD [...] 09/28/2022 Office Visit Cardiology Timothy Smith MD [address] [place] [address] Trudi Grayson APRN REAL ESTATE VALUER [address] [place] [id number] 11/16/2022 Ancillary Procedure Cardiology Timothy Smith MD [address] [place] [id number] (Wo rk) documented as of this encounter Visit Diagnoses Not on filedocumented in this encounter Care Teams Rn Or Lpn Relationship Specialty Start Date End Date Slava Hernandez, PCP - General Physician Marine Operations Coordinator 07/02/1806/02 [facility] [address] [place] [address] Timothy Smith MD Assigned Heart and 07/23/20 [address] [facility] Vascular Provider [address] [place] [address] documented as of this encounter
--- OUTSIDE RECORDS SUMMARY | 2022-09-12 09:17 | XMS_ITS | Encounter Summary ---
:1940 Author Organization [place] Address [address] [place] [address] Care Team Providers Name Role Phone Slava Hernandez PA-C Primary Care Provider Ankur Smith MD Unavailable Reason for Referral (Routine) - Closed Specialty Diagnoses / Procedures Referred By Contact Refer red To Contact Diagnoses Sustained VT (ventricular tachycardia) [facility] [address] [place] [address] Referral ID Status Reason Start Date Expiration Date Visits Requ ested Visits Authorized [id number] Closed 02/17/2021 02/17/2022 1 1 V Testing [...] INITIAL SUBSTANCE [facility] US GUIDE FOR PERICARDIOCENTESIS [address] [place] [address] Z[facility] ECHO MYOCARD BX ZZC INJECTION, PERFLUTREN [...] HC STATISTIC IV [place] [address] HC ECHO COMPLETE W DOPPLER W CONTRAST HC ECHO COMPLETE W DOPPLER W/O CONTRAST [address] Referral ID Status Reason Start Date Expiration Date Visits Requ ested Visits Authorized [id number] Closed 02/17/2021 02/17/2022 1 1 Reason for Visit Reason Onset Date Comments Implantable Devices 02/16/2021 PPM, NSVT/sustained VT Encounter Details Date Type Department Care Team Description 02/16/2021 Telephone [facility] [place] [facility] Triston Butler RN (PPM, NSVT/sustained VT) [address] [facility] [address] [place] [address] Social History Tobacco Use Types [...] 09/28/2022 Office Visit Cardiology Ankur Smith MD [address] [place], [place] [address] Trudi Grayson APRN CPS TEAM LEAD [address] [place] [id number] 11/16/2022 Ancillary Procedure Cardiology Ankur Smith MD [address] [place] [id number] (Wo rk) Scheduled Referrals Name Type Priority Associated Diagnoses Order S chedule Follow-Up with Referral Routine Sustained VT Expected: Hog Killer (ventricular 03/20/20 tachycardia) (H) (Approximat e), Expires: 02/17/2022 documented as of this encounter Results ECHO COMPLETE WITH CONTRAST (03/21/2021 1:18 PM CDT) Anatomical Region Laterality Modality Echocardiography Specimen (Source) Anatomical Collection Method Collection Time Re ceived Time Location / / Volume Laterality 03/21/2021 12:48 PM CDT Narrative 03/21/2021 2:22 PM CDT [id number]^KEELEY^ANKUR [facility] Heart Echocardiography Laboratory [address] [facility] [address] [place] [address] Name: RADHA VILLA : 1940 Study Date: 03/21/2021 12:48 PM Age: 80 yrs Gender: Male [facility] Reason For Study: Sustained VT (ventricu lar tachycardia) (H) Ordering Physician: ANKUR SMITH Referring Physician: ANKUR SMITH Performed By: MCKAY Saenz BSA: 2.5 m2 Height: 71 in Weight: 285 lb HR: 73 BP: 100/68 mmHg Procedure Complete Echo Adult. Vijaya ([facility] #[id number]) given intravenously. Interpretation Summary The visual ejection [...] note might be different from the original. [id number]^KEELEY^ANKUR [facility] Heart Echocardiography Laboratory [address] [facility] [address] [place] [address] Name: RADHA VILLA : 1940 Study Date: 03/21/2021 12:48 PM Age: 80 yrs Gender: Male Patient Location: [facility] Reason For Study: Sustained VT (ventricu lar tachycardia) (H) Ordering Physician: ANKUR SMITH Referring Physician: ANKUR SMITH Performed By: MCKAY Saenz BSA: 2.5 m2 Height: 71 in Weight: 285 lb HR: 73 BP: 100/68 mmHg Procedure Complete Echo Adult. Optison ([facility] #[id number]) given intravenously. Interpretation Summary The visual ejection [...] tachycardia documented in this encounter Care Teams Informatics Educator Relationship Specialty Start Date End Date Slava Hernandez, PCP - General Physician Speech Scientist 07/02/1806/02 PA-C [facility] [address] [place] [address] Ankur Smith MD Assigned Heart and 07/23/20 [address] [facility] S Vascular Provider [address] [place] [address] documented as of this encounter
--- OUTSIDE RECORDS SUMMARY | 2022-09-12 09:17 | XMS_ITS | Encounter Summary ---
:1940 Author Organization [place] Address [address] [facility] [place] [address] Care Team Providers Name Role Phone Slava Hernandez PA-C Primary Care Provider Timothy Smith MD Unavailable Encounter Details Date Type Department Care Team Description 04/26/2021 Orders Only [facility] Timothy Smith MD Encounter for Heart Clinic [place] [address] screening for other [address] viral diseases [facility] [address] [place] [address] [place] [phone] Social History Tobacco Use Types Packs/Day Years [...] Visit Cardiology Timothy Smith MD [address] [place] [phone] Trudi Grayson SEWING PATTERN LAYOUT TECHNICIAN TURKEY CLEANER [address] 821[address] 11/16/2022 Ancillary Procedure Cardiology Timothy Smith MD [address] [place] [id number] (Wo rk) documented as of this encounter [...] using the Aptima SARS-CoV-2 Assay on the LivBlends Instrument System. Additional in formation about this [...] COVID-19. This test was validated by the [facility] Infectious Diseases Diagnostic Laboratory. This lab oratory is certified under the Clinical Laboratory Improvement Amen dments of 1988 (CLIA-88) as qualified to perform high complexity lab oratory testing. Timothy Smith MD LAB - MICRO GENERAL ORDERABL ES Performing Organization Address City/State/ZIP Code Phon e Number [facility] [place] [address] Diag. Lab [address] [facility], Room [address]297 [facility] Infectious [place], [place] [phone] Diseases Diagnostic [phone], [facility] Lab (IDDL) [address] [facility], Room D297 documented in this encounter Visit Diagnoses Diagnosis Encounter for screening for other viral diseases documented in this encounter Care Teams Embedded Software Programmer Relationship Specialty Start Date End Date Slava Hernandez, PCP - General Physician Ward Aide 07/02/1806/02 PA-C [facility] [address] [place] [address] Timothy Smith MD Assigned Heart and 07/23/20 [address] Vascular Provider [address] [place] [address] documented as of this encounter
--- OUTSIDE RECORDS SUMMARY | 2022-09-12 09:17 | XMS_ITS | Encounter Summary ---
:1940 Author Organization [place] Address [address] [facility] [place] [address] Care Team Providers Name Role Phone Slava Hernandez PA-C Primary Care Provider Timothy Smith MD Unavailable Reason for Referral (Routine) - Closed Specialty Diagnoses / Procedures Referred By Contact Refer red To Contact Diagnoses Sustained VT (ventricular tachycardia) Timothy Smith MD [address] [place] [address] Referral ID Status Reason Start Date Expiration Date Visits Requ ested Visits Authorized [id number] Closed 03/23/2021 03/23/2022 1 1 V Testing (Routine) - Closed Specialty Diagnoses / Procedures Referred By Contact Refer red To Contact Cardiology Diagnoses Sustained VT (ventricular tachycardia) Timothy Smith MD [facility] Rscc Procedures Holter Monitor 24 hour Adult Pediatric ZZC AMB BP MONITORING W/SW >=24 HR, RECORD/SCAN/INTRP/RPT ZZ[facility] HOLTER RECORDING 24 HRS ZZHC HOLTER SCAN 24 HRS MD HOLTER RECORDING 24 HRS MD HOLTER SCAN [address] [address] [employer] MD AMB BP MONITORING W/SW >= 24 HR, RECORD/SCAN/INTRP/RPT HC HOLTER RECORDING 24 HRS HC HOLTER SCAN 24 HRS, ANALYSIS WITH REPORT [place] [address] [address] [place] [address] Phone: Fax: Referral ID Status Reason Start Date Expiration Date Visits Requ ested Visits Authorized [id number] Closed 03/23/2021 03/23/2022 1 1 Reason for Visit Reason Comments FU Cardiac testing review echo, discuss upgrade - ekg done (Routine) - Closed Specialty Diagnoses / Procedures Referred By Contact Refer red To Contact Diagnoses Sustained VT (ventricular tachycardia) [facility] [address] [facility] [address] [place] [address] Referral ID Status Reason Start Date Expiration Date Visits Requ ested Visits Authorized [id number] Closed 02/17/2021 02/17/2022 1 1 Encounter Details Date Type Department Care Team Description 03/23/2021 Office Visit [facility] Timothy Smith MD Sustained VT (ventricular tachycardia) ( H); [facility] [place] [address] Persistent atrial fibrillati on (H) [address] [facility] [address] [facility] [address] [place] [address] [place] [address] Social History Tobacco Use [...] upgrade. Timothy Smith MD cc: HANK Handley [facility] [address] [place], [address] Timothy Smith MD MT: patito Name: RADHA VILLA MRN: [id number] Account: [id number] : 1940 Service Date: 03/23/2021 Document: [id number] Mary Post CMA - 03/23/2021 1:45 PM CDT A decision aid for implantable cardioverter-defibrillatiors (ICD) given to patient at office visit to review before seeing provider. Timothy Smith MD - 03/23/2021 1:45 PM CDT HPI and Plan: See dictation Orders Placed This Encounter Procedures ??? Follow-Up with Locator Specialist ??? EKG 12-lead complete w/read (Future)- [...] on phone: None Gets together: None Attends anabaptism service: None Active member of club or [...] Oriented x 3 CC Timothy Smith MD [address] [place] [address] documented in this encounter Plan of Treatment Upcoming Encounters Date Type Specialty Care Team Description 09/28/2022 Lab Lab 09/28/2022 Office Visit Cardiology Timothy Smith MD [address] [place] [address] Trudi Grayson APRN DIRECTOR OF FOOD AND NUTRITION SERVICES [address] 998505 11/16/2022 Ancillary Procedure Cardiology Timothy Smith MD [address] [place] 930415 (Wo rk) Scheduled Referrals Name Type Priority Associated Diagnoses Order S chedule Follow-Up with Referral Routine Sustained VT Expected: Locator Specialist (ventricular 04/22/20 21 tachycardia) (H) (Approximat [...] fibrillation documented in this encounter Care Teams Laminating Machine Offbearer Relationship Specialty Start Date End Date Slava Hernandez, PCP - General Physician Public Transit Bus Driver 07/02/1806/02 PA-C [facility] [address] [place] [address] Timothy Smith MD Assigned Heart and 07/23/20 [address] Vascular Provider [address] [place] [address] documented as of this encounter
--- OUTSIDE RECORDS SUMMARY | 2022-09-12 09:17 | XMS_ITS | Encounter Summary ---
:1940 Author Organization [place] Address [address] [place] [address] Care Team Providers Name Role Phone Slava [...] 09/28/2022 Office Visit Cardiology Timothy Smith MD [address] [place] [address]54[address] Trudi Grayson APRN TELEPHOTO ENGINEER [address] [id number] 11/16/2022 Ancillary Procedure Cardiology Timothy Smith MD [address] [place] 1033[address] (Wo rk) documented as of this encounter Visit Diagnoses Not on filedocumented in this encounter Care Teams Remediation Project Engineer Relationship Specialty Start Date End Date Slava Hernandez, PCP - General Physician Manager Supply Chain Planning 07/02/1806/02 [facility] [address] [place] [address] Timothy Smith MD Assigned Heart and 07/23/20 [address] [facility] Vascular Provider [address] [place] [address] documented as of this encounter
--- OUTSIDE RECORDS SUMMARY | 2022-09-12 09:17 | XMS_ITS | Encounter Summary ---
:1940 Author Organization [place] Address [address] [facility] [place] [address] Care Team Providers Name Role Phone Slava Hernandez PA-C Primary Care Provider Timothy Smith MD Unavailable Encounter Details Date Type Department Care Team Description 11/08/2020 Telephone [facility] Sergo Tamayo RN [place] [address] [place] [address] [address] [place] [address] Social History Tobacco Use Types [...] discuss further. Awaiting return call. SIENNA Okeefe TECHNOLOGIST Telephone Encounter - Temitope Tamayo RN - 11/08/2020 11:17 AM CST ----- Message from Catherine Aranda LPN sent at 11/08/2020 10:32 AM SOIL TECHNOLOGIST ----- Pt left a VM message on my phone that eliquis is too expensive, over 500$, he Rosanna will not be taking that, what else can I try-will forward to AF team His pn# [phone] [place] medical instrument technician TECHNOLOGIST documented in this encounter Plan of Treatment Upcoming Encounters Date Type Specialty Care Team Description 09/28/2022 Lab Lab 09/28/2022 Office Visit Cardiology Timothy Smith MD [address] [place] [address] Trudi Grayson, FLACO FRUIT ROOM HAND [address] [id number] 11/16/2022 Ancillary Procedure Cardiology Timothy Smith MD [address] [place] [phone] (Wo rk) documented as of this encounter Visit Diagnoses Not on filedocumented in this encounter Care Teams Construction Scheduler Relationship Specialty Start Date End Date Slava Hernandez, PCP - General Physician Clay Worker 07/02/1806/02 PA-C [facility] [address] [place] [address] Timothy Smith MD Assigned Heart and 07/23/20 [address] Vascular Provider [address] [place] [id number] documented as of this encounter
--- OUTSIDE RECORDS SUMMARY | 2022-09-12 09:17 | XMS_ITS | Encounter Summary ---
:1940 Author Organization [place] Address [address] [facility] [place] [address] Care Team Providers Name Role Phone Slava Hernandez PA-C Primary Care Provider Timothy Smith MD Unavailable Reason for Visit CV Testing (Routine) - Closed Specialty Diagnoses / Procedures Referred By Contact Refer red To Contact Diagnoses Cardiac pacemaker in situ Chris De Leon MD Procedures Cardiac Device Check - In Clinic [address] [place] [address] Referral ID Status Reason Start Date Expiration Date Visits Requ ested Visits Authorized [id number] Closed 11/16/2020 11/16/2021 1 1 Encounter Details Date Type Department Care Team Description 02/16/2021 Ancillary Procedure [facility] Chris De Leon SSS (sick sinus syndrome) (H) (Primary Dx); Heart Clinic Cardiac pacemaker in situ Coleman [address] [place] [address] [place], [place] [phone] [address] (Work) [phone] Social History Tobacco Use Types Packs/Day Years [...] Visit Cardiology Timothy Smith MD [address] [place] [phone] Trudi Grayson APRN GAS GENERATOR OPERATOR [address] [place] [place] [address] 11/16/2022 Ancillary Procedure Cardiology Timothy Smith MD [address] [place] 468585 (Wo rk) documented as of this encounter [...] Range Method Time At Signature Date Time [id number] [employer] Interrogation Session Implantable [employer]IC Pulse Generator Personal Banking Advisor Implantable L121 ESSENTIO EL [employer]TRONIC Pulse Generator Model Implantable [id number] [employer]ONIC Pulse Generator Serial Number Type In Clinic [facility] Interrogation Session Clinic Name [facility] [employer] Implantable Pacemaker [employer]IC Pulse Generator Type Implantable [id number] [employer] Pulse Generator Implant Date Implantable Lead [facility] RAUL Personal Banking Advisor Implantable Lead [id number] Tendril MEDTRONI C Model STS Implantable Lead [id number] [employer] Serial Number Implantable Lead [id number] MED[employer]ONIC Implant Date Implantable Lead Bipolar Lead [employer] Polarity Type Implantable Lead UNKNOWN [employer] Location Detail 1 Implantable Lead Right Atrium [employer] Location Implantable Lead [facility] RAUL Personal Banking Advisor Implantable Lead 2087TC Tendril MEDTRONI C Model STS Implantable Lead [id number] [employer] Serial Number Implantable Lead [id number] MEDTRONIC [...] NSVT MEDTRONIC Statistic Vendor Type Category Episode [id number] [employer] Statistic Total Date Time End Episode 80 [employer] Statistic Recent Count Episode [place] [employer] Statistic Type Category Episode NSVT MEDTR[employer]IC Statistic Vendor Type Category Episode SunOct 15 [employer] Statistic Recent 03:43:58 DIRECTOR OF VOCATIONAL TRAINING 2019 Date Time Start Episode [id number] [employer] Statistic Recent Date Time End Anatomical Region Laterality Modality Other Specimen (Source) Anatomical Location Collection Method / Collectio n Time Received Time / Laterality Volume 02/16/2021 Narrative 02/21/2021 9:24 AM CDT [facility] [employer] (D) Pacemaker Device Check Patient seen in clinic for device evalua tion and iterative programming. AP: NA ?% ?? KAYAKING INSTRUCTOR: 39 % ?? Mode: VVIR 60-130 ?? [...] situ documented in this encounter Care Teams Biomedical Equipment Technician Relationship Specialty Start Date End Date Slava Hernandez, PCP - General Physician Application Integration Specialist 07/02/1806/02 PA-C [facility] [address] [place] [address] Timothy Smith MD Assigned Heart and 07/23/20 [address] Vascular Provider [address] [place] [address] documented as of this encounter
--- OUTSIDE RECORDS SUMMARY | 2022-09-12 09:17 | XMS_ITS | Encounter Summary ---
:1940 Author Organization [place] Address [address] [facility] [place] [address] Care Team Providers Name Role Phone Slava Hernandez PA-C Primary Care Provider Timothy Smith MD Unavailable Reason for Visit Reason Onset Date Comments Refill Request 11/10/2020 Eliquis Encounter Details Date Type Department Care Team Description 11/10/2020 Refill [facility] Sintia Muhammad Refi ll Request (Eliquis) [facility] Heart RN Care [address] [place] [address] Social History Tobacco Use Types Packs/Day [...] like a prescription sent in to the [facility] mail order pharmacy. Spoke with Dr. Smith who stated that he would recommend patient resume the Eliquis 5mg BID. Prescription for Eliquis 5mg BID sent into [facility] mail order pharmacy per patient request. Pt called and updated and verbalized understanding and agreement with plan. SIENNA Hatch EM MANAGER documented in this encounter Plan of Treatment Upcoming Encounters Date Type Specialty Care Team Description 09/28/2022 Lab Lab 09/28/2022 Office Visit Cardiology Timothy Smith MD [address] [place] [phone] Trudi Grayson APRN AVIONICS SAFETY INSPECTOR [address] [address] 11/16/2022 Ancillary Procedure Cardiology Timothy Smith MD [address] [place] [id number] (Wo rk) documented as of this encounter Visit Diagnoses Diagnosis Atrial flutter (H) - Primary Atrial flutter A-fib (H) Atrial fibrillation documented in this encounter Care Teams Small Business Consultant Relationship Specialty Start Date End Date Slava Hernandez, PCP - General Physician Medical Records Administrator 07/02/1806/02 PA-C [facility] [address] [place] [address] Timothy Smith MD Assigned Heart and 07/23/20 [address] Vascular Provider [address] [place] [address] documented as of this encounter
--- OUTSIDE RECORDS SUMMARY | 2022-09-12 09:17 | XMS_ITS | Encounter Summary ---
:1940 Author Organization [place] Address [address] [facility] [place] [address] Care Team Providers Name Role Phone Slava [...] 09/28/2022 Office Visit Cardiology Timothy Smith MD [address] [place] [address] Trudi Grayson APRN RECONCILING CLERK [address] 239425 11/16/2022 Ancillary Procedure Cardiology Timothy Smith MD [address] [place] [address]7225 (Wo rk) documented as of this encounter Visit Diagnoses Not on filedocumented in this encounter Care Teams Inspection Machine Tender Relationship Specialty Start Date End Date Slava Hernandez, PCP - General Physician Director Supply Chain 07/02/1806/02 MARIBEL [facility] [address] [place] [address] Timothy Smith MD Assigned Heart and 07/23/20 [address] [facility] Vascular Provider [address] [place] [address] documented as of this encounter
--- OUTSIDE RECORDS SUMMARY | 2022-09-12 09:17 | XMS_ITS | Encounter Summary ---
:1940 Author Organization [place] Address [address] [place] [address] Care Team Providers Name Role Phone Slava Hernandez PA-C Primary Care Provider Timothy Smith MD Unavailable Reason for Visit Reason Onset Date Comments Refill Request 08/30/2020 mail order refill se nt 08-25-2020[facility]----re sent Encounter Details Date Type Department Care Team Description 08/30/2020 Refill [facility] Heart Zarina Smith MD Refill Request (mail Clinic [place] [address] order refill sent [address] [facility] [address] 08-25-2020-[facility] claims [address] [place] [address] they dont have it----re [place] [phone] sent) [phone] Social History Tobacco Use Types Packs/Day Years [...] 09/28/2022 Office Visit Cardiology Timothy Smith MD [address] [place] [address] Trudi Grayson APRN CNP [address] [place] [id number] 11/16/2022 Ancillary Procedure Cardiology Timothy Smith MD [address] [place] 668905 (Wo rk) documented as of this encounter Visit Diagnoses Diagnosis Paroxysmal atrial fibrillation (H) Atrial fibrillation documented in this encounter Care Teams Cause Analyst Relationship Specialty Start Date End Date Slava Hernandez, PCP - General Physician Machine Fastener 07/02/1806/02 PA-C [facility] [address] [place] [address] Timothy Smith MD Assigned Heart and 07/23/20 [address] Vascular Provider [address] [place] 799[address] documented as of this encounter
--- OUTSIDE RECORDS SUMMARY | 2022-09-12 09:17 | XMS_ITS | Encounter Summary ---
:1940 Author Organization [place] Address [address] [place] [address] Care Team Providers Name Role Phone Leeroymekhi Slava Estrella PA-C Primary Care Provider Timothy Smith MD Unavailable Reason for Visit Reason Onset Date Comments Refill Request 08/30/2020 [facility] to mail order !! Encounter Details Date Type Department Care Team Description 08/30/2020 Refill [facility] Heart Zarina Smith MD Refill Request ([facility] [address] to mail order!!) [address] [phone] [place] [address] [place] [id number] [phone] Social History Tobacco Use Types Packs/Day Years [...] 09/28/2022 Office Visit Cardiology Timothy Smith MD [address] [place] [phone] Trudi Grayson APRN LANDSCAPING SUPERVISOR [address] [place] [address]25[address] 11/16/2022 Ancillary Procedure Cardiology Timothy Smith MD [address] [place] 737395 (Wo rk) documented as of this encounter Visit Diagnoses Diagnosis Paroxysmal atrial fibrillation (H) Atrial fibrillation documented in this encounter Care Teams Marketing Programs Manager Relationship Specialty Start Date End Date Slava Hernandez, PCP - General Physician Lithographic General Worker 07/02/1806/02 PAIlanaC [facility] [address] [place] [address] Timothy Smith MD Assigned Heart and 07/23/20 [address] Vascular Provider [address] [place] [address] documented as of this encounter
--- OUTSIDE RECORDS SUMMARY | 2022-09-12 09:17 | XMS_ITS | Encounter Summary ---
:1940 Author Organization [place] Address [address] [facility] [address] Care Team Providers Name Role Phone Slava Hernandez PA-C Primary Care Provider Timothy Smith MD Unavailable Reason for Visit Reason Onset Date Comments Medication Question 02/02/2021 side effects? Encounter Details Date Type Department Care Team Description 02/02/2021 Telephone [facility] Medic ation Question [facility] SIENNA Butler (side eff ects?) Heart Care [address] [place] [address] [address] [place] [address] Social History Tobacco Use Types [...] [address] [place] [phone] Turdi Grayson APRN FOOD PRODUCTION MACHINE OPERATOR [address] [address] 11/16/2022 Ancillary Procedure Cardiology Timothy Smith MD [address] [place] [address] (Wo rk) documented as of this encounter Visit Diagnoses Not on filedocumented in this encounter Care Teams Supplier Diversity Director Relationship Specialty Start Date End Date Slava Hernandez, PCP - General Physician Computer Forensics Analyst 07/02/1806/02 PA-C [facility] [address] [place] [address] Timothy Smith MD Assigned Heart and 07/23/20 [address] Vascular Provider [address] [place] 7257[address] documented as of this encounter
--- OUTSIDE RECORDS SUMMARY | 2022-09-12 09:17 | XMS_ITS | Encounter Summary ---
:1940 Author Organization [place] Address [facility] [place] [address] Care Team Providers Name Role Phone Slava Hernandez PA-C Primary Care Provider Timothy Smith MD Unavailable Reason for Visit Reason Comments Medication Refill Encounter Details Date Type Department Care Team Description 09/24/[address] [facility] Urology Shea Rivera PA-C Medication Refill [facility] [address] [place] [address] [place] [address] [place] [address] [phone] Social History Tobacco Use Types Packs/Day Years [...] 09/28/2022 Office Visit Cardiology Timothy Smith MD [address] [place] [address] Trudi Grayson APRN DIRECTOR METABOLISM [address] [place] [address] 11/16/2022 Ancillary Procedure Cardiology Timothy Smith MD [address] [place] [id number] (Wo rk) documented as of this encounter Visit Diagnoses Diagnosis Urinary frequency Weak urinary stream Slowing of urinary stream documented in this encounter Care Teams Renewable Energy Broker Relationship Specialty Start Date End Date Slava Hernandez, PCP - General Physician Inside Sales Supervisor 07/02/1806/02 PA-C [facility] [address] [place] [address] Timothy Smith MD Assigned Heart and 07/23/20 [address] Vascular Provider [address] [place] [phone] documented as of this encounter
--- OUTSIDE RECORDS SUMMARY | 2022-09-12 09:17 | XMS_ITS | Encounter Summary ---
:1940 Author Organization [place] Address [address] [place] [address] Care Team Providers Name Role Phone Slava [...] INITIAL SUBSTANCE [facility] US GUIDE FOR PERICARDIOCENTESIS [address] [place] [address] [facility] ECHO MYOCARD BX ZZC INJECTION, PERFLUTREN LIPID MICROSPHERES, PER ML [facility] STATISTIC IV PUSH SINGLE INITIAL SUBSTANCE LA ECHO MYOCARD BX LA INJECTION, PERFLUTREN LIPID MICROSPHERES, PER ML LA TTE W/DOPPLER, COMPLETE [address] LA IV PUSH SINGLE, INITIAL S UBSTANCE LA TTE W/DOPPLER, COMPLETE LA TTE W/DOPPLER, COMPLETE HC US GUIDE FOR PERICARDIOCENTESIS HC ECHO MYOCARD BX HC IV PUSH SINGLE, INITIAL SUBSTANCE HC STATISTIC IV PUSH SINGLE INIT[place] [address] HC ECHO COMPLETE W DOPPLER W CONTRAST HC ECHO COMPLETE W DOPPLER W/O CONTRAST [address] Referral ID Status Reason Start Date Expiration Date Visits Requ ested Visits Authorized [id number] Closed 02/17/2021 02/17/2022 1 1 Reason for [...] INITIAL SUBSTANCE [facility] US GUIDE FOR PERICARDIOCENTESIS 02[address] HeTexted [address] [facility] Z[facility] ECHO MYOCARD BX ZZC INJECTION, PERFLUTREN LIPID MICROSPHERES, PER ML [facility] STATISTIC IV PUSH SINGLE INITIAL SUBSTANCE LA ECHO MYOCARD BX LA INJECTION, PERFLUTREN LIPID MICROSPHERES, PER ML LA TTE W/DOPPLER, COMPLETE [address] LA IV PUSH SINGLE, INITIAL S UBSTANCE LA TTE W/DOPPLER, COMPLETE LA TTE W/DOPPLER, COMPLETE HC US GUIDE FOR PERICARDIOCENTESIS HC ECHO MYOCARD BX HC IV PUSH SINGLE, INITIAL SUBSTANCE HC STATISTIC IV PUSH SINGLE [place] [address] HC ECHO COMPLETE W DOPPLER W CONTRAST HC ECHO COMPLETE W DOPPLER W/O CONTRAST [address] Referral ID Status Reason Start Date Expiration Date Visits Requ ested Visits Authorized [id number] Closed 02/17/2021 02/17/2022 1 1 Encounter Details Date Type Department Care Team Description 03/21/2021 Hospital Encounter [facility] Ankur Smith MD Sustained [place] [address] (ventr icular Heart Care [address] tachycardia) (H) [address] [facility] [place] [address] (Primary Dx) [facility] [phone] [address] (Work) [place] [address] Social History [...] Coronary artery disease minutes as needed involving [place] coronary for chest pain artery of [place] heart without angina pectoris apixaban ANTICOAGULANT Take [...] 09/28/2022 Office Visit Cardiology Ankur Smith MD [address] [place] [phone] Trudi Grayson APRN VALVE INSPECTOR [address] 670[address] 11/16/2022 Ancillary Procedure Cardiology Ankur Smith MD [address] [place] 1947[address] (Wo rk) documented as of this encounter [...] PM CDT Narrative 03/21/2021 2:22 PM CDT [id number]^KEELEY^ANKUR [facility] Heart Echocardiography Laboratory [address] [facility] [address] [place] [address] Name: RADHA FAROOQ : 1940 Study Date: 03/21/2021 12:48 PM Age: 80 yrs Gender: Male Patient Location: [facility] Reason For Study: Sustained VT (ventricu lar tachycardia) (H) Ordering Physician: ANKUR SMITH Referring Physician: ANKUR SMITH Performed By: RDCS Anel Saenz BSA: 2.5 m2 Height: 71 in Weight: 285 lb HR: 73 BP: 100/68 mmHg Procedure Complete Echo Adult. Vijaya ([facility] #[id number]) given intravenously. Interpretation Summary The visual ejection [...] note might be different from the original. [id number]^KEELEY^HUAGUI [facility] Heart Echocardiography Laboratory [address] [facility] [address] [place] [address] Name: RADHA FAROOQ : 1940 Study Date: 03/21/2021 12:48 PM Age: 80 yrs Gender: Male Patient Location: [facility] Reason For Study: Sustained VT (ventricu lar tachycardia) (H) Ordering Physician: ANKUR SMITH Referring Physician: ANKUR SMITH Performed By: MCKAY Saenz BSA: 2.5 m2 Height: 71 in Weight: 285 lb HR: 73 BP: 100/68 mmHg Procedure Complete Echo Adult. Optison ([facility] #[id number]) given intravenously. Interpretation Summary The visual ejection [...] 1330, For 1 dose, [facility] [id number] sodium chloride (PF) 0.9% PF flush 10 mL Given 03/21/2021 1:19 PM CDT 10 mLs 10 mL, Intravenous, ONCE, On Sun03/21/21 at 1330, For 1 dose documented in this encounter Care Teams Jig Bore Operator Relationship Specialty Start Date End Date Slava Hernandez, PCP - General Physician Wardrobe Attendant 07/02/1806/02 PA-C [facility] [address] [place] [address] Ankur Smith MD Assigned Heart and 07/23/20 [address] Vascular Provider [address] [place] [address] documented as of this encounter
--- OUTSIDE RECORDS SUMMARY | 2022-09-12 09:17 | XMS_ITS | Encounter Summary ---
:1940 Author Organization [place] Address [address] [facility] [place] [address] Care Team Providers Name Role Phone Slava [...] 24 HRS ZZ[facility] HOLTER SCAN 24 HRS AK HOLTER RECORDING 24 HRS AK HOLTER SCAN 24 HRS [address] [address] [place] AM[place] BP MONITORING W/SW >= 24 HR, RECORD/SCAN/INTRP/RPT HC HOLTER RECORDING 24 HRS HC HOLTER SCAN 24 HRS, ANALYSIS WITH REPORT [place] [address] [address] [place] [address] Phone: Fax: Referral ID Status Reason Start Date Expiration Date Visits Requ ested Visits Authorized [id number] Closed 03/23/2021 03/23/2022 1 1 Reason for Visit CV Testing (Routine) - Closed Specialty Diagnoses / Procedures Referred By Contact Refer red To Contact Cardiology Diagnoses Sustained VT (ventricular tachycardia) Timothy Smith MD Rh Cv Cardiac Svc Rscc Procedures Holter Monitor 24 hour Adult Pediatric ZZC AMB BP MONITORING W/SW >=24 HR, RECORD/SCAN/INTRP/RPT ZZ[facility] HOLTER RECORDING 24 HRS ZZHC HOLTER SCAN 24 HRS AK HOLTER RECORDING 24 HRS AK HOLTER SCAN [address] [address] [employer] AMB BP MONITORING W/SW >= 24 HR, RECORD/SCAN/INTRP/RPT HC HOLTER RECORDING 24 HRS HC HOLTER SCAN 24 HRS, ANALYSIS WITH REPORT [place] [address] [address] [place] [address] Phone: Fax: Referral ID Status Reason Start Date Expiration Date Visits Requ ested Visits Authorized [id number] Closed 03/23/2021 03/23/2022 1 1 Encounter Details Date Type Department Care Team Description 03/30/2021 Hospital Encounter [facility] Timothy Smith MD Sustained VT [facility] [address] (ventricu [facility] Heart Care [address] tachycardia) (H) [address] [employer] [place] [address] [address] [place], [place] (Work) [address] Social History Tobacco Use [...] Coronary artery disease minutes as needed involving [place] coronary for chest pain artery of [place] heart without angina pectoris apixaban ANTICOAGULANT Take [...] 09/28/2022 Office Visit Cardiology Timothy Smith MD [address] [place] [address] Trudi Grayson APRN TRENCH DIGGER [address] [place] [address] 11/16/2022 Ancillary Procedure Cardiology Timothy Smith MD [address] W2[place] 379465 (Wo rk) documented as of this encounter [...] tachycardia documented in this encounter Care Teams Retail Selling Floor Leader Relationship Specialty Start Date End Date Slava Hernandez, PCP - General Physician Oven Heater 07/02/1806/02 PA-C [facility] [address] [place] [address] Timothy Smith MD Assigned Heart and 07/23/20 [address] Vascular Provider W2[place] [address]415 documented as of this encounter
--- OUTSIDE RECORDS SUMMARY | 2022-09-12 09:17 | XMS_ITS | Encounter Summary ---
:1940 Author Organization [place] Address [address] [facility] [place] [address] Care Team Providers Name Role Phone Slava [...] 09/28/2022 Office Visit Cardiology Timothy Smith MD [address] [place] [address] Trudi Grayson APRN CASER UP [address] [place] [address]08[address] 11/16/2022 Ancillary Procedure Cardiology Timothy Smith MD [address] [place] 811135 (Wo rk) documented as of this encounter Visit Diagnoses Not on filedocumented in this encounter Care Teams Senior Internal Auditor Relationship Specialty Start Date End Date Slava Hernandez, PCP - General Physician Steaming Cabinet Tender 07/02/1806/02 MARIBEL [facility] [address] [place] [address] Timothy Smith MD Assigned Heart and 07/23/20 [address] [facility] Vascular Provider [address] [place] [address] documented as of this encounter
--- OUTSIDE RECORDS SUMMARY | 2022-09-12 09:17 | XMS_ITS | Encounter Summary ---
:1940 Author Organization [place] Address [address] [facility] [place] [address] Care Team Providers Name Role Phone Slava [...] 09/28/2022 Office Visit Cardiology Timothy Smith MD [address] [place] [phone] Trudi Grayson APRN WOOL MIXER [address] [id number] 11/16/2022 Ancillary Procedure Cardiology Timothy Smith MD [address] [place] [id number] (Wo rk) documented as of this encounter Visit Diagnoses Not on filedocumented in this encounter Care Teams Case Assistant Relationship Specialty Start Date End Date Slava Hernandez, PCP - General Physician Field Service Tech 07/02/1806/02 MAR[facility]EL [facility] [address] [place] [address] Timothy Smith MD Assigned Heart and 07/23/20 [address] [facility] Vascular Provider [address] [place] [address] documented as of this encounter
--- OUTSIDE RECORDS SUMMARY | 2022-09-12 09:17 | XMS_ITS | Encounter Summary ---
:1940 Author Organization [place] Address [address] [facility] [place] [address] Care Team Providers Name Role Phone Slava Hernandez PA-C Primary Care Provider Timothy Smith MD Unavailable Encounter Details Date Type Department Care Team Description 04/28/2021 Telephone [facility] Keyshawn Myers RN [address] [place] [address] Social History Tobacco Use Types [...] [address] [place] [address] Trudi Grayson APRN YOUTH AGENT [address] [place] [address] [address] 11/16/2022 Ancillary Procedure Cardiology Timothy Smith MD [address] [place] 156595 (Wo rk) documented as of this encounter Visit Diagnoses Not on filedocumented in this encounter Care Teams Medical Assistant Dermatology Relationship Specialty Start Date End Date Slava Hernandez, PCP - General Physician Pharmacist Critical Care 07/02/1806/02 PA-C [facility] [address] [place], [place] [phone] Timothy Smith MD Assigned Heart and 07/23/20 [address] Vascular Provider [address] [place] [address]23[address] documented as of this encounter
--- OUTSIDE RECORDS SUMMARY | 2022-09-12 09:17 | XMS_ITS | Encounter Summary ---
:1940 Author Organization [place] Address [address] [place] [address] Care Team Providers Name Role Phone Slava Hernandez PA-C Primary Care Provider Timothy Smith MD Unavailable Reason for Visit CV Testing (Routine) - Closed Specialty Diagnoses / Procedures Referred By Contact Refer red To Contact Diagnoses Cardiac pacemaker in situ SSS (sick sinus syndrome) (H) Steven Canchola Procedures Cardiac Device Check - Remote [address] [place] [address] Referral ID Status Reason Start Date Expiration Date Visits Requ ested Visits Authorized [id number] Closed 02/16/2021 02/16/2022 1 1 Encounter Details Date Type Department Care Team Description 05/18/2021 Ancillary [facility] Steven Canchola iac pacemaker in situ; Procedure [facility] MD Jose SSS (sick sinus syndrome) (H) Heart Care [address] [facility] [address] [place] [address] [place] [phone] (Wo rk) [address] [phone] Social History Tobacco Use Types Packs/Day Years [...] Smith MD [address] [place], [place] [phone] Trudi Grayson APRN CIGARETTE PACKING MACHINE OPERATOR [address] [place] [address] 11/16/2022 Ancillary Procedure Cardiology Timothy Smith MD [address] [place] [address] (Wo rk) documented as of this encounter [...] Range Method Time At Signature Date Time [id number] MEDTRONIC Interrogation Session Implantable [place] [employer] MEDTRONIC Pulse Generator Greenhouse Technician Implantable L121 ESSENTIO EL MEDTRONIC Pulse Generator Model Implantable [id number] MEDTRONIC Pulse Generator Serial Number Type Remote MEDTRONIC Interrogation Session Clinic Name [facility] MEDTRONIC Implantable Pacemaker MEDTRONIC Pulse Generator Type Implantable [id number] MEDTRONIC Pulse Generator Implant Date Implantable Lead [facility] RAUL Greenhouse Technician Implantable Lead 2088TC Tendril MEDTRONI C Model STS Implantable Lead [id number] MEDTRONIC Serial Number Implantable Lead [id number] MEDTRONIC Implant Date Implantable Lead Bipolar Lead MEDTRONIC Polarity Type Implantable Lead UNKNOWN MEDTRONIC Location Detail 1 Implantable Lead Right Atrium [facility]TR[facility]IC Location Implantable Lead [facility]O RAUL Greenhouse Technician Implantable Lead 2088TC Tendril MEDTRONI C Model STS Implantable Lead [id number] MEDTRONIC Serial Number Implantable Lead [id number] MEDTRONIC Implant Date Implantable Lead Bipolar Lead [...] 100 % MEDTRONIC Remaining Percentage Brandon Statistic [id number] MEDTRONIC Date Time Start Brandon Statistic [id number] MEDTRONIC Date Time End Brandon Statistic 0 [...] [place] MEDTRONIC Statistic Vendor Type Category Episode [id number] MEDTRONIC Statistic Recent Date Time Start Episode [id number] MEDTRONIC Statistic Recent Date Time End Episode [id number] MEDTRONIC Statistic Recent Date Time Start Episode [id number] MEDTRONIC Statistic Recent Date Time End Episode [id number] MEDTRONIC Statistic Recent Date Time Start Episode [id number] MEDTRONIC Statistic Recent Date Time End Episode [id number] MEDTRONIC Statistic Recent Date Time Start Episode [id number] MEDTRONIC Statistic Recent Date Time End Episode APM-99 MEDTRONIC Identifier Episode Type Periodic EGM MEDTRONIC Category Episode Date [id number] MEDTRONIC Time Episode RVAT-4098 MEDTRONIC Identifier Episode Type Other MEDTRONIC Category Episode Date [id number] MEDTRONIC Time Episode V-1629 MEDTRONIC Identifier Episode Type [place] MEDTRONIC Category Episode Date [id number] MEDTRONIC Time Episode Duration 14 s MEDTRONIC Episode V-1628 MEDTRONIC Identifier Episode Type [place] MEDTRONIC Category Episode Date [id number] MEDTRONIC Time Episode Duration 16 s MEDTRONIC Anatomical Region Laterality Modality Other Specimen (Source) Anatomical Collection Method Collection Time Re ceived Time Location / / Volume Laterality 05/18/2021 12:41 AM CDT Narrative 05/24/2021 4:14 PM CDT Mabaya Essentio (S) Remote PPM Device Check COMPOSITION FLOOR SETTER: 30% Mode: VVIR 60-130 Presenting Rhythm: COMPOSITION FLOOR SETTER Heart Rate: Adequate rates per histogram Sensing: [...] dysfunction documented in this encounter Care Teams Electrical Engineering Designer Relationship Specialty Start Date End Date Slava Hernandez, PCP - General Physician Lpc 07/02/1806/02 PA-C [place] [id number] Timothy Smith MD Assigned Heart and 07/23/20 [address] Vascular Provider [address] [place] [id number] documented as of this encounter
--- OUTSIDE RECORDS SUMMARY | 2022-09-12 09:18 | XMS_ITS | Encounter Summary ---
:1940 Author Organization [place] Address [facility] [place] [address] Care Team Providers Name Role Phone Slava [...] [address] [place] [address] Trudi Grayson APRN ENTREPRENEUR [address] [id number] 11/16/2022 Ancillary Procedure Cardiology Timothy Smith MD [address] [place] [id number] (Wo rk) documented as of this encounter Visit Diagnoses Not on filedocumented in this encounter Care Teams Trouble Locater Relationship Specialty Start Date End Date Slava Hernandez PA-C PCP - General Physician Learning Solutions Specialist 07/02/18 06/29/21 [facility] [address] [place] [address] documented as of this encounter
--- OUTSIDE RECORDS SUMMARY | 2022-09-12 09:18 | XMS_ITS | Encounter Summary ---
:1940 Author Organization [place] Address [address] [facility] [place] [address] Care Team Providers Name Role Phone Mary Slava Estrella PA-C Primary Care Provider Encounter Details Date Type Department Care Team Description 10/15/2019 Telephone [facility] Zina Myers, RN [address] [place] [phone] Social History Tobacco Use Types [...] PM CST Thank you for the update. ST AIDE Telephone Encounter - Kitty Myers RN - [...] is on metoprolol. Will route to Dr. mSith per protocol. ST AIDE documented in this encounter Plan of Treatment Upcoming Encounters Date Type Specialty Care Team Description 09/28/2022 Lab Lab 09/28/2022 Office Visit Cardiology Timothy Smith MD [address] [place] [id number] Trudi Grayson APRN CLINICAL SYSTEMS EDUCATOR [address] [address] 11/16/2022 Ancillary Procedure Cardiology Timothy Smith MD [address] [place] [address] (Wo rk) documented as of this encounter Visit Diagnoses Not on filedocumented in this encounter Care Teams Geological Technical Officer Relationship Specialty Start Date End Date Slava Hernandez PA-C PCP - General Physician Pbx Teacher 07/02/18 06/29/21 [facility] [address] [place] [address] documented as of this encounter
--- OUTSIDE RECORDS SUMMARY | 2022-09-12 09:18 | XMS_ITS | Encounter Summary ---
:1940 Author Organization [place] Address [address] [facility] [place] [address] Care Team Providers Name Role Phone Slava Hernandez PA-C Primary Care Provider Reason for Visit CV Testing (Routine) - Closed Specialty Diagnoses / Procedures Referred By Contact Refer red To Contact Diagnoses Cardiac pacemaker in situ [facility] Cv Cardiac Services Procedures Cardiac Device Check - Remote [address] [facility] [address] [place] [phone] Referral ID Status Reason Start Date Expiration Date Visits Requ ested Visits Authorized [id number] Closed 01/23/2019 01/23/2020 1 1 Encounter Details Date Type Department Care Team Description 06/25/2019 Ancillary Procedure [facility] Basil Guadalupe ardiac pacemaker in [facility] MD Tawanda situ Heart Care [address] [facility] [address] [place] [address] [place]obb[place] [phone] (Work) [phone] Social History Tobacco Use Types Packs/Day Years [...] 09/28/2022 Office Visit Cardiology Timothy Smith MD [address] [place] [address] rTudi Grayson APRN DRILL SHARPENER OPERATOR [address] [place] [address] [address] 11/16/2022 Ancillary Procedure Cardiology Timothy Smith MD [address] [place] [id number] (Wo rk) documented as of this encounter [...] Range Method Time At Signature Date Time [id number] MEDTRONIC Interrogation Session Implantable [place] [employer] MEDTRONIC Pulse Generator Visual Merchandising Specialist Implantable L121 ESSENTIO EL MEDTRONIC Pulse Generator Model Implantable 936417 MEDTRONIC Pulse Generator Serial Number Type Remote MEDTRONIC Interrogation Session [facility] MEDTRONIC Pulse Generator Type Implantable [id number] MEDTRONIC Pulse Generator Implant Date Implantable Lead [facility] MEDTRO RAUL Visual Merchandising Specialist Implantable Lead 2087TC Tendril MEDTRONI C Model STS Implantable Lead [id number] MEDTRONIC Serial Number Implantable Lead 20160204 MEDTRONIC Implant Date Implantable Lead Bipolar Lead MEDTRONIC Polarity Type Implantable Lead UNKNOWN MEDTRONIC Location Detail 1 Implantable Lead Right Atrium MEDTRONIC Location Implantable Lead [facility] MED[facility]O RAUL Visual Merchandising Specialist Implantable Lead 2087TC Tendril MEDTRONI C Model STS Implantable Lead [id number] MEDTRONIC Serial Number Implantable Lead 20160204 MEDTRONIC [...] MEDTRONIC Pacing Threshold Pulse Width Battery Date [id number] MEDTRONIC Time of Measurements Battery Status Beginning of MEDTRONIC Service Battery 108 mo MEDTRONIC Remaining Longevity Battery 100 % MEDTRONIC Remaining Percentage Brandon Statistic [id number] MEDTRONIC Date Time Start Brandon Statistic [id number] MEDTRONIC Date Time End Brandon Statistic 0 % MEDTRONIC RA Percent Paced Brandon Statistic 62 % MEDTRONIC RV Percent Paced Atrial Tachy [id number] MEDTRONIC Statistic Date Time Start Atrial Tachy 95973722431245 MEDTRONIC Statistic Date Time End Atrial Tachy 100 % MEDTRONIC Statistic AT/AF Hope Percent Episode 5 MEDTRONIC Statistic Recent Count [...] [place] MEDTRONIC Statistic Vendor Type Category Episode [id number] MEDTRONIC Statistic Recent Date Time Start Episode [id number] MEDTRONIC Statistic Recent Date Time End Episode [id number] MEDTRONIC Statistic Recent Date Time Start Episode [id number] MEDTRONIC Statistic Recent Date Time End Episode [id number] MEDTRONIC Statistic Recent Date Time Start Episode [id number] MEDTRONIC Statistic Recent Date Time End Episode [id number] MEDTRONIC Statistic Recent Date Time Start Episode [id number] MEDTRONIC Statistic Recent Date Time End Episode APM-92 MEDTRONIC Identifier Episode Type Periodic EGM MEDTRONIC Category Episode Date [id number] MEDTRONIC Time Episode RVAT-2151 MEDTRONIC Identifier Episode Type Other MEDTRONIC Category Episode Date [id number] MEDTRONIC Time Episode ATR-6510 MEDTRONIC Identifier Episode Type AT/AF MEDTRONIC Category Episode Date [id number] MEDTRONIC Time Episode V-1530 MEDTRONIC Identifier Episode Type [place] MEDTRONIC Category Episode Date [id number] MEDTRONIC Time Episode Duration 15 s MEDTRONIC Episode V-1529 MEDTRONIC Identifier Episode Type [place] MEDTRONIC Category Episode Date [id number] MEDTRONIC Time Episode Duration 14 s MEDTRONIC Episode V-1528 MEDTRONIC Identifier Episode Type VT MEDTRONIC Category Episode Date [id number] MEDTRONIC Time Episode Duration 15 s MEDTRONIC Episode V-1527 MEDTRONIC Identifier Episode Type [place] MEDTRONIC Category Episode Date [id number] MEDTRONIC Time Episode Duration 14 s MEDTRONIC Episode V-1526 MEDTRONIC Identifier Episode Type VT MEDTRONIC Category Episode Date [id number] MEDTRONIC Time Episode Duration 14 s MEDTRONIC Episode V-1525 MEDTRONIC Identifier Episode Type VT MEDTRONIC Category Episode Date [id number] MEDTRONIC Time Episode Duration 15 s MEDTRONIC Episode V-1524 MEDTRONIC Identifier Episode Type VT MEDTRONIC Category Episode Date [id number] MEDTRONIC Time Episode Duration 40 s MEDTRONIC Episode V-1523 MEDTRONIC Identifier Episode Type VT MEDTRONIC Category Episode Date [id number] MEDTRONIC Time Episode Duration 16 s MEDTRONIC Episode V-1522 MEDTRONIC Identifier Episode Type VT MEDTRONIC Category Episode Date [id number] MEDTRONIC Time Episode Duration 15 s MEDTRONIC Episode V-1521 MEDTRONIC Identifier Episode Type VT MEDTRONIC Category Episode Date [id number] MEDTRONIC Time Episode Duration 14 s MEDTRONIC Episode ATR-6509 MEDTRONIC Identifier Episode Type AT/AF MEDTRONIC Category Episode Date [id number] MEDTRONIC Time Episode Duration 1,020,750 s MEDTRONIC Episode ATR-6508 MEDTRONIC Identifier Episode Type AT/AF MEDTRONIC Category Episode Date [id number] MEDTRONIC Time Episode Duration 2,246,835 s MEDTRONIC Episode ATR-6507 MEDTRONIC Identifier Episode Type AT/AF MEDTRONIC Category Episode Date [id number] MEDTRONIC Time Episode Duration 30 s MEDTRONIC Anatomical Region Laterality Modality Other Specimen (Source) Anatomical Collection Method Collection Time Re ceived Time Location / / Volume Laterality 06/25/2019 5:40 AM CDT Narrative 07/01/2019 8:21 AM CDT [employer] L121 Essentio EL (D) Remote PPM Device CheckAP: 0%BALLOON DESIGN PRINTER: 62%Mode: DDDRPresenting Rhythm: Afib wit h BALLOON DESIGN PRINTER & VSHeart Rate: adequate heart rates per [...] situ documented in this encounter Care Teams Plain Goods Hemmer Relationship Specialty Start Date End Date Slava Hernandez PA-C PCP - General Physician Architecture Professor 07/02/18 06/29/21 [facility] [address] [place] [address] documented as of this encounter
--- OUTSIDE RECORDS SUMMARY | 2022-09-12 09:18 | XMS_ITS | Encounter Summary ---
:1940 Author Organization [place] Address [address] [place] [address] Care Team Providers Name Role Phone Slava Hernandez PA-C Primary Care Provider Reason for Referral CV Testing (Routine) - Closed Specialty Diagnoses / Procedures Referred By Contact Refer red To Contact Diagnoses Cardiac pacemaker in situ Basil Guadalupe MD Procedures Cardiac Device Check - Remote [address] [facility] [address] [place] [address] Referral ID Status Reason Start Date Expiration Date Visits Requ ested Visits Authorized [id number] Closed 10/15/2019 10/14/2020 1 1 CE AUDITOR Reason for Visit CV Testing (Routine) - Closed Specialty Diagnoses / Procedures Referred By Contact Refer red To Contact Diagnoses Cardiac pacemaker in situ [facility] Cv Cardiac Services Procedures Cardiac Device Check - In Clinic [address] [facility] [address] [place] [address] Referral ID Status Reason Start Date Expiration Date Visits Requ ested Visits Authorized [id number] Closed 06/25/2019 06/24/2020 1 1 Encounter Details Date Type Department Care Team Description 10/15/2019 Ancillary Procedure [facility] Timothy Smith MD Cardiac pacemaker in Heart Clinic [address] situ [facility] [address] [address] [place], [place] [address] [address] [place], [place] (Work) [phone] Social History Tobacco Use Types Packs/Day Years [...] MD [address] [place] [address] Trudi Grayson APRN CNP [address] [address] 11/16/2022 Ancillary Procedure Cardiology Timothy Smith MD [address] [place] [phone] (Wo rk) documented as of this encounter Procedures Procedure Name Priority Date/Time Associated Comments Diagnosis PM DEVICE PROGRAMMING Routine 10/15/2019 9:24 AM Cardiac pacem vane Results for this EVAL, DUAL LEAD PACER OFFICE AUDITOR in situ proced ure are in the results section. documented in this encounter Results INTERROGATION DEVICE EVAL REMOTE PACER UP TO 90 DAYS (01/27/2020 7:40 AM CDT) Component Value Ref Test Analysis Performed Pathologis t Range Method Time At Signature Date Time [id number] MEDTRONIC Interrogation Session Implantable [place] [employer] MEDTRONIC Pulse Generator Ems Driver Implantable L121 ESSENTIO EL MEDTRONIC Pulse Generator Model Implantable 528299 MEDTRONIC Pulse Generator Serial Number Type Remote MEDTRONIC Interrogation Session Clinic Name [facility] MEDTRONIC Implantable Pacemaker MEDTRONIC Pulse Generator Type Implantable [id number] MEDTRONIC Pulse Generator Implant Date Implantable Lead [facility] MEDTRO RAUL Ems Driver Implantable Lead 2088TC Tendril MEDTRONI C Model STS Implantable Lead [id number] MEDTRONIC Serial Number Implantable Lead 20160204 MEDTRONIC Implant Date Implantable Lead Bipolar Lead MEDTRONIC Polarity Type Implantable Lead UNKNOWN MEDTRONIC Location Detail 1 Implantable Lead Right Atrium MEDTRONIC Location Implantable Lead [facility] MEDTRO RAUL Ems Driver Implantable Lead 2088TC Tendril MEDTRONI C Model STS Implantable Lead [id number] MEDTRONIC Serial Number Implantable Lead [id number] MEDTRONIC Implant Date Implantable Lead Bipolar Lead [...] 100 % MEDTRONIC Remaining Percentage Brandon Statistic [id number] MEDTRONIC Date Time Start Brandon Statistic [id number] MEDTRONIC Date Time End Brandon Statistic 0 [...] [place] MEDTRONIC Statistic Vendor Type Category Episode [id number] MEDTRONIC Statistic Recent Date Time Start Episode [id number] MEDTRONIC Statistic Recent Date Time End Episode [id number] MEDTRONIC Statistic Recent Date Time Start Episode [id number] MEDTRONIC Statistic Recent Date Time End Episode [id number] MEDTRONIC Statistic Recent Date Time Start Episode [id number] MEDTRONIC Statistic Recent Date Time End Episode [id number] MEDTRONIC Statistic Recent Date Time Start Episode [id number] MEDTRONIC Statistic Recent Date Time End Episode APM-94 MEDTRONIC Identifier Episode Type Periodic EGM MEDTRONIC Category Episode Date [id number] MEDTRONIC Time Episode RVAT-2805 MEDTRONIC Identifier Episode Type Other MEDTRONIC Category Episode Date [id number] MEDTRONIC Time Episode V-1550 MEDTRONIC Identifier Episode Type [place] MEDTRONIC Category Episode Date [id number] MEDTRONIC Time Episode Duration 16 s MEDTRONIC Episode V-1549 MEDTRONIC Identifier Episode Type [place] MEDTRONIC Category Episode Date [id number] MEDTRONIC Time Episode Duration 26 s MEDTRONIC Episode V-1548 MEDTRONIC Identifier Episode Type VT MEDTRONIC Category Episode Date [id number] MEDTRONIC Time Episode Duration 28 s MEDTRONIC Episode V-1547 MEDTRONIC Identifier Episode Type VT MEDTRONIC Category Episode Date [id number] MEDTRONIC Time Episode Duration 12 s MEDTRONIC Episode V-1546 MEDTRONIC Identifier Episode Type VT MEDTRONIC Category Episode Date [id number] MEDTRONIC Time Episode Duration 14 s MEDTRONIC Episode V-1545 MEDTRONIC Identifier Episode Type VT MEDTRONIC Category Episode Date [id number] MEDTRONIC Time Episode Duration 21 s MEDTRONIC Episode V-1544 MEDTRONIC Identifier Episode Type VT MEDTRONIC Category Episode Date [id number] MEDTRONIC Time Episode Duration 14 s MEDTRONIC Episode V-1543 MEDTRONIC Identifier Episode Type VT MEDTRONIC Category Episode Date [id number] MEDTRONIC Time Episode Duration 37 s MEDTRONIC Episode V-1542 MEDTRONIC Identifier Episode Type VT MEDTRONIC Category Episode Date [id number] MEDTRONIC Time Episode Duration 14 s MEDTRONIC Episode V-1541 MEDTRONIC Identifier Episode Type [place] MEDTRONIC Category Episode Date [id number] MEDTRONIC Time Episode Duration 23 s MEDTRONIC Anatomical Region Laterality Modality Other Specimen (Source) Anatomical Collection Method Collection Time Re ceived Time Location / / Volume Laterality 01/27/2020 12:41 AM CDT Narrative 02/10/2020 3:26 PM CDT Datical Essentio (S) Remote PPM Device Check SENIOR REPORT DEVELOPER: 35%, Chronic AFib, taking Eliquis Mode: VVIR Presenting Rhythm: SENIOR REPORT DEVELOPER Heart Rate: adequate heart rates per his [...] EVAL, DUAL LEAD PACER (10/15/2019 9:24 AM OFFICE AUDITOR) Component Value Ref Test Analysis Performed Pathologis t Range Method Time At Signature Date Time [id number] MEDTRONIC Interrogation Session Implantable [place] [employer] MEDTRONIC Pulse Generator Ems Driver Implantable L121 ESSENTIO EL MEDTRONIC Pulse Generator Model Implantable 128509 MEDTRONIC Pulse Generator Serial Number Type In Clinic MEDTRONIC Interrogation Session Clinic Name [facility] MEDTRONIC Implantable Pacemaker MEDTRONIC Pulse Generator Type Implantable [id number] MEDTRONIC Pulse Generator Implant Date Implantable Lead [facility] MEDTRO RUAL Ems Driver Implantable Lead 2088TC Tendril MEDTRONI C Model STS Implantable Lead [id number] MEDTRONIC Serial Number Implantable Lead [id number] MEDTRONIC Implant Date Implantable Lead Bipolar Lead MEDTRONIC Polarity Type Implantable Lead UNKNOWN MEDTRONIC Location Detail 1 Implantable Lead Right Atrium MEDTRONIC Location Implantable Lead [facility] MEDTRO RAUL Ems Driver Implantable Lead 2088TC Tendril MEDTRONI C Model STS Implantable Lead [id number] MEDTRONIC Serial Number Implantable Lead [id number] MEDTRONIC Implant Date Implantable Lead Bipolar Lead [...] NSVT MEDTRONIC Statistic Vendor Type Category Episode [id number] MEDTRONIC Statistic Total Date Time End Episode 97 MEDTRONIC Statistic Recent Count Episode VT MEDTRONIC Statistic Type Category Episode NSVT MEDTRONIC Statistic Vendor Type Category Episode [id number] MEDTRONIC Statistic Recent Date Time Start Episode [id number] MEDTRONIC Statistic Recent Date Time End Anatomical Region Laterality Modality Other Specimen (Source) Anatomical Collection Method Collection Time Re ceived Time Location / / Volume Laterality 10/15/2019 3:46 PM OFFICE AUDITOR Narrative 10/16/2019 10:41 AM OFFICE AUDITOR [place] [employer] Accolade (D) Pacemaker Device Check AP: <1 ?% ?? SENIOR REPORT DEVELOPER: 61 % ?? Mode: VVIR 60-130 (was [...] situ documented in this encounter Care Teams Sausage Cooker Relationship Specialty Start Date End Date Slava Hernandez PA-C PCP - General Physician Filler Leaf Cutter Long 07/02/18 06/29/[address] [address] documented as of this encounter
--- OUTSIDE RECORDS SUMMARY | 2022-09-12 09:18 | XMS_ITS | Encounter Summary ---
:1940 Author Organization [place] Address [address] [place] [address] Care Team Providers Name Role Phone Slava [...] [address] [place] [address] Trudi Grayson, FLACO TELEPHONE OPERATOR RECEPTIONIST [address] [address] 11/16/2022 Ancillary Procedure Cardiology Timothy Smith MD [address] [place] [address] (Wo rk) documented as of this encounter Visit Diagnoses Not on filedocumented in this encounter Care Teams Fitness Worker Relationship Specialty Start Date End Date Slava Hernandez PA-C PCP - General Physician Weaver Wire Loom 07/02/18 06/29/21 [facility] [id number] [place] [address] documented as of this encounter
--- OUTSIDE RECORDS SUMMARY | 2022-09-12 09:18 | XMS_ITS | Encounter Summary ---
:1940 Author Organization [place] Address [facility] [place] [place] [address] Care Team Providers Name Role Phone Slava Hernandez PA-C Primary Care Provider Reason for Visit Reason Onset Date Comments Refill Request 02/24/2020 [facility] NTG Encounter Details Date Type Department Care Team Description 02/24/2020 Refill [facility] Heart Tammy Montenegro Refill Request ([facility] NTG) Clinic [place] Torres PA-C 03[address] [facility] [address] [facility] [address] [place] [phone] [place] [phone] (Wo rk) Social History Tobacco Use Types [...] 09/28/2022 Office Visit Cardiology Timothy Smith MD [address] [place] [phone] Trudi Grayson APRN SOFTWARE ENGINEER BACKEND [address] [place] [id number] 11/16/2022 Ancillary Procedure Cardiology Timothy Smith MD [address] [place] [address] (Wo rk) documented as of this encounter Visit Diagnoses Diagnosis 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
--- OUTSIDE RECORDS SUMMARY | 2022-09-12 09:18 | XMS_ITS | Encounter Summary ---
:1940 Author Organization [place] Address [facility] [place] [address] Care Team Providers Name Role Phone Slava [...] [address] [place] [phone] Trudi Grayson APRN CLINICAL PHARMACY MANAGER [address] [id number] 11/16/2022 Ancillary Procedure Cardiology Timothy Smith MD [address] [place] [id number] (Wo rk) documented as of this encounter Visit Diagnoses Not on filedocumented in this encounter Care Teams Modeling Agency Manager Relationship Specialty Start Date End Date Slava Hernandez PA-C PCP - General Physician Oil Pipeline Operator 07/02/18 06/29/21 [facility] [address] [place] [address] documented as of this encounter
--- OUTSIDE RECORDS SUMMARY | 2022-09-12 09:18 | XMS_ITS | Encounter Summary ---
:1940 Author Organization [place] Address [address] [address] Care Team Providers Name Role Phone Slava Hernandez PA-C Primary Care Provider Reason for Visit CV Testing - Closed Specialty Diagnoses / Procedures Referred By Contact Refer red To Contact Diagnoses Syncope and collapse Steven Canchola, Procedures Cardiac Device Check - Remote [address] [place] [address] Referral ID Status Reason Start Date Expiration Date Visits Requ ested Visits Authorized [id number] Closed 12/10/2018 12/10/2019 1 1 Encounter Details Date Type Department Care Team Description 03/18/2019 Ancillary [facility] Steven Canchola Sync ope and Procedure [facility] MD Jose collapse [facility] [address] [facility] [address] [facility] [address] [place] [address] [place] [phone] (Wo rk) [phone] [phone] Social History Tobacco Use Types Packs/Day Years [...] MD [address] [place] [address] Trudi Grayson APRN MEDICAL LABORATORY ASSISTANT [address] [id number] 11/16/2022 Ancillary Procedure Cardiology Timothy Smith MD [address] [place] [id number] (Wo rk) documented as of this encounter [...] Range Method Time At Signature Date Time [id number] MEDTRONIC Interrogation Session Implantable [employer] MEDTRONIC Pulse Generator It Corporate Recruiter Implantable L121 ESSENTIO EL MEDTRONIC Pulse Generator Model Implantable [id number] MEDTRONIC Pulse Generator Serial Number Type Remote MEDTRONIC Interrogation [facility] Pacemaker MEDTRONIC Pulse Generator Type Implantable [id number] MEDTRONIC Pulse Generator Implant Date Implantable Lead [facility] [facility] MEDTRO RAUL It Corporate Recruiter Implantable Lead 2087TC Tendril MEDTRONI C Model STS Implantable Lead [id number] MEDTRONIC Serial Number Implantable Lead [id number] MEDTRONIC Implant Date Implantable Lead Bipolar Lead MEDTRONIC Polarity Type Implantable Lead UNKNOWN MEDTRONIC Location Detail 1 Implantable Lead Right Atrium MEDTRONIC Location Implantable Lead [facility] [facility] MED[employer]O RAUL It Corporate Recruiter Implantable Lead 2087TC Tendril MEDTRONI C Model STS Implantable Lead [id number] MEDTRONIC Serial Number Implantable Lead [id number] MEDTRONIC [...] MEDTRONIC Pacing Threshold Pulse Width Battery Date 59436922421745 MEDTRONIC Time of Measurements Battery Status Beginning of MEDTRONIC Service Battery 114 mo MEDTRONIC Remaining Longevity Battery 100 % MEDTRONIC Remaining Percentage Brandon Statistic [id number] MEDTRONIC Date Time Start Brandon Statistic [id number] MEDTRONIC Date Time End Brandon Statistic 0 % MEDTRONIC RA Percent Paced Brandon Statistic 60 % MEDTRONIC RV Percent Paced Atrial Tachy [id number] MEDTRONIC Statistic Date Time Start Atrial Tachy 13165272227475 MEDTRONIC Statistic Date Time End Atrial Tachy 100 % MEDTRONIC Statistic AT/AF [place] Percent Episode 1 MEDTRONIC Statistic Recent Count [...] [place] MEDTRONIC Statistic Vendor Type Category Episode [id number] MEDTRONIC Statistic Recent Date Time Start Episode [id number] MEDTRONIC Statistic Recent Date Time End Episode [id number] MEDTRONIC Statistic Recent Date Time Start Episode [id number] MEDTRONIC Statistic Recent Date Time End Episode [id number] MEDTRONIC Statistic Recent Date Time Start Episode [id number] MEDTRONIC Statistic Recent Date Time End Episode [id number] MEDTRONIC Statistic Recent Date Time Start Episode [id number] MEDTRONIC Statistic Recent Date Time End Episode APM-91 MEDTRONIC Identifier Episode Type Periodic EGM MEDTRONIC Category Episode Date [id number] MEDTRONIC Time Episode RVAT-1947 MEDTRONIC Identifier Episode Type Other MEDTRONIC Category Episode Date [id number] MEDTRONIC Time Episode V-1456 MEDTRONIC Identifier Episode Type [place] MEDTRONIC Category Episode Date [id number] MEDTRONIC Time Episode Duration 22 s MEDTRONIC Episode V-1455 MEDTRONIC Identifier Episode Type SVT MEDTRONIC Category Episode Vendor SVT MEDTRONIC Type Category Episode Date [id number] MEDTRONIC Time Episode Duration 110 s MEDTRONIC Episode V-1454 MEDTRONIC Identifier Episode Type [place] MEDTRONIC Category Episode Date [id number] MEDTRONIC Time Episode Duration 15 s MEDTRONIC Episode V-1453 MEDTRONIC Identifier Episode Type VT MEDTRONIC Category Episode Date [id number] MEDTRONIC Time Episode Duration 21 s MEDTRONIC Episode V-1452 MEDTRONIC Identifier Episode Type VT MEDTRONIC Category Episode Date [id number] MEDTRONIC Time Episode Duration 21 s MEDTRONIC Episode V-1451 MEDTRONIC Identifier Episode Type VT MEDTRONIC Category Episode Date [id number] MEDTRONIC Time Episode Duration 15 s MEDTRONIC Episode V-1450 MEDTRONIC Identifier Episode Type VT MEDTRONIC Category Episode Date [id number] MEDTRONIC Time Episode Duration 17 s MEDTRONIC Episode V-1449 MEDTRONIC Identifier Episode Type VT MEDTRONIC Category Episode Date [id number] MEDTRONIC Time Episode Duration 13 s MEDTRONIC Episode V-1448 MEDTRONIC Identifier Episode Type VT MEDTRONIC Category Episode Date [id number] MEDTRONIC Time Episode Duration 19 s MEDTRONIC Episode ATR-6506 MEDTRONIC Identifier Episode Type AT/AF MEDTRONIC Category Episode Date [id number] MEDTRONIC Time Episode V-1447 MEDTRONIC Identifier Episode Type VT MEDTRONIC Category Episode Date [id number] MEDTRONIC Time Episode Duration 17 s MEDTRONIC Episode V-1446 MEDTRONIC Identifier Episode Type VT MEDTRONIC Category Episode Date [id number] MEDTRONIC Time Episode Duration 14 s MEDTRONIC Anatomical Region Laterality Modality Other Specimen (Source) Anatomical Collection Method Collection Time Re ceived Time Location / / Volume Laterality 03/18/2019 5:41 AM CDT Narrative 03/19/2019 2:34 PM CDT [employer] L121 Essentio EL (D) Remote PPM Device CheckAP: 0%DIRECT CARE COUNSELOR: 60%Mode: DDDRPresenting Rhythm: Chronic Afib and VPHeart [...] collapse documented in this encounter Care Teams Review Appraiser Relationship Specialty Start Date End Date Slava Hernandez PAIlanaC PCP - General Physician Crew Boss 07/02/18 06/29/[address] [address] documented as of this encounter
--- OUTSIDE RECORDS SUMMARY | 2022-09-12 09:18 | XMS_ITS | Encounter Summary ---
:1940 Author Organization [place] Address [address] [place] [address] Care Team Providers Name Role Phone Mary Slava Estrella PA-C Primary Care Provider Reason for Visit Reason Onset Date Comments Prior Auth - Medication 07/17/2019 Eliquis 5 MG tab let (Tier Exception) - DENIED Encounter Details Date Type Department Care Team Description 07/17/2019 Telephone [facility] Heart Zarina Smith MD Prior Auth - Medication Clinic [place] [address] (Eliquis 5 MG tablet [address] [facility] [address] (Tier Exception) - [facility] [address] [place] [address] DENIED) [place] [phone] Social History Tobacco Use Types Packs/Day Years [...] in patient's chart and route back to [facility] PA MED [[id number]] Telephone Encounter - Lacy [place], SIENNA - [...] one month of samples for pt to picking machine operator helper in [place]. Will watch for PA results. JNelsonRN Telephone Encounter - Monica Nguyen - 07/18/2019 10:52 AM CDT Images from the original note were not included. PA Initiation Medication: Eliquis 5 MG tablet (Tier Exception) - Insurance Company: Medicare Blue - Pharm[facility] [place] [place] - [address] AT PORTAL TO [facility] SITES Filling Pharmacy Filling Pharmacy Start Date: 07/18/2019 Telephone Encounter - Ron Fontaine - 07/17/2019 8:30 AM CDT Prior Authorization Retail Medication Request Medication/Dose: apixaban ANTICOAGULANT (ELIQUIS) 5 MG tablet- (TIER EXCEPTION) ICD Code: Paroxysmal atrial fibrillation (H) (I48.0) Insurance Name: BRENNAN Shannon/ [employer] Medicare Blue RX BIN: [id number] PCN: MEDDADV ID: [id number] RX GROUP: [id number] Pharmacy Information: Name Pharmacy: [facility] [place] [address] AT Portal to Registered [facility] Sites documented in this encounter Plan of Treatment Upcoming Encounters Date Type Specialty Care Team Description 09/28/2022 Lab Lab 09/28/2022 Office Visit Cardiology Timothy Smith MD [address] [place] [address] Trudi Grayson APRN TRAINING SYSTEMS OFFICER [address] [address] 11/16/2022 Ancillary Procedure Cardiology Timothy Smith MD [address] [place] [address] (Wo rk) documented as of this encounter Visit Diagnoses Not on filedocumented in this encounter Care Teams Electronic Security Specialist Relationship Specialty Start Date End Date Slava Hernandez PA-C PCP - General Physician Cheese Weigher 07/02/18 06/29/21 [facility] [address] [place] [address] documented as of this encounter
--- OUTSIDE RECORDS SUMMARY | 2022-09-12 09:18 | XMS_ITS | Encounter Summary ---
:1940 Author Organization [place] Address [address] [place] [address] Care Team Providers Name Role Phone Slava Hernandez PA-C Primary Care Provider Reason for Visit CV Testing (Routine) - Closed Specialty Diagnoses / Procedures Referred By Contact Refer red To Contact Diagnoses Cardiac pacemaker in situ Basil Guadalupe MD Procedures Cardiac Device Check - Remote [address] [place] [address] Referral ID Status Reason Start Date Expiration Date Visits Requ ested Visits Authorized [id number] Closed 01/27/2020 01/26/2021 1 1 Encounter Details Date Type Department Care Team Description 05/04/2020 Ancillary Procedure [facility] Basil Guadalupe ardiac pacemaker in [facility] MD Tawanda situ [facility] Care [address] [facility] [address] [facility] [address] [facility] [address] [place] [address] [place] [phone] (Work) [phone] Social History Tobacco Use Types Packs/Day Years [...] 09/28/2022 Office Visit Cardiology Timothy Smith MD [address] [place] [address] Trudi Grayson APRN DIGITAL MARKETING STRATEGIST [address] 967[address] 11/16/2022 Ancillary Procedure Cardiology Timothy Smith MD [address] [place] [phone] (Wo rk) documented as of this encounter [...] Range Method Time At Signature Date Time [id number] MEDTRONIC Interrogation Session Implantable [employer] MEDTRONIC Pulse Generator Tool Profiling Machine Set Up Operator Implantable L121 ESSENTIO EL MEDTRONIC Pulse Generator Model Implantable 100580 MEDTRONIC Pulse Generator Serial Number Type Remote MEDTRONIC Interrogation Session [facility] Pacemaker MEDTRONIC Pulse Generator Type Implantable [id number] MEDTRONIC Pulse Generator Implant Date Implantable Lead [facility] [facility] MEDTRO RAUL Tool Profiling Machine Set Up Operator Implantable Lead 2087TC Tendril MEDTRONI C Model STS Implantable Lead [id number] MEDTRONIC Serial Number Implantable Lead [id number] MEDTRONIC Implant Date Implantable Lead Bipolar Lead MEDTRONIC Polarity Type Implantable Lead UNKNOWN MEDTRONIC Location Detail 1 Implantable Lead Right Atrium MEDTRONIC Location Implantable Lead [facility] [facility] MEDTRO RAUL Tool Profiling Machine Set Up Operator Implantable Lead 2087TC Tendril MEDTRONI C Model STS Implantable Lead [id number] MEDTRONIC Serial Number Implantable Lead 20160204 MEDTRONIC [...] 100 % MEDTRONIC Remaining Percentage Brandon Statistic [id number] MEDTRONIC Date Time Start Brandon Statistic [id number] MEDTRONIC Date Time End Brandon Statistic 0 [...] [place] MEDTRONIC Statistic Vendor Type Category Episode [id number] MEDTRONIC Statistic Recent Date Time Start Episode [id number] MEDTRONIC Statistic Recent Date Time End Episode [id number] MEDTRONIC Statistic Recent Date Time Start Episode [id number] MEDTRONIC Statistic Recent Date Time End Episode [id number] MEDTRONIC Statistic Recent Date Time Start Episode [id number] MEDTRONIC Statistic Recent Date Time End Episode [id number] MEDTRONIC Statistic Recent Date Time Start Episode [id number] MEDTRONIC Statistic Recent Date Time End Episode APM-95 MEDTRONIC Identifier Episode Type Periodic EGM MEDTRONIC Category Episode Date [id number] MEDTRONIC Time Episode RVAT-3150 MEDTRONIC Identifier Episode Type Other MEDTRONIC Category Episode Date [id number] MEDTRONIC Time Episode V-1554 MEDTRONIC Identifier Episode Type [place] MEDTRONIC Category Episode Date [id number] MEDTRONIC Time Episode Duration 13 s MEDTRONIC Episode V-1553 MEDTRONIC Identifier Episode Type VT MEDTRONIC Category Episode Date [id number] MEDTRONIC Time Episode Duration 18 s MEDTRONIC Episode V-1552 MEDTRONIC Identifier Episode Type VT MEDTRONIC Category Episode Date [id number] MEDTRONIC Time Episode Duration 14 s MEDTRONIC Episode V-1551 MEDTRONIC Identifier Episode Type [place] MEDTRONIC Category Episode Date [id number] MEDTRONIC Time Episode Duration 13 s MEDTRONIC Anatomical Region Laterality Modality Other Specimen (Source) Anatomical Collection Method Collection Time Re ceived Time Location / / Volume Laterality 05/04/2020 12:41 AM CDT Narrative 05/05/2020 5:21 PM CDT [employer] Essentio (S) Remote PPM Device Check TECHNICAL OPERATIONS VICE PRESIDENT: 36%, Chronic AFib, taking Eliquis Mode: VVIR Presenting Rhythm: TECHNICAL OPERATIONS VICE PRESIDENT Heart Rate: adequate heart rates per his [...] situ documented in this encounter Care Teams Tax Collector Relationship Specialty Start Date End Date Slava Hernandez PA-C PCP - General Physician Business Analytics Manager 07/02/18 06/29/21 [place] [address] documented as of this encounter
--- OUTSIDE RECORDS SUMMARY | 2022-09-12 09:18 | XMS_ITS | Encounter Summary ---
:1940 Author Organization [place] Address [facility] [place] [address] Care Team Providers Name Role Phone Slava [...] [address] [place] [phone] Trudi Grayson APRN SPANISH MEDICAL INTERPRETER [address] [address] 11/16/2022 Ancillary Procedure Cardiology Timothy Smith MD [address] [place] [id number] (Wo rk) documented as of this encounter Visit Diagnoses Not on filedocumented in this encounter Care Teams Instructional Design Consultant Relationship Specialty Start Date End Date Slava Hernandez PA-C PCP - General Physician Facility Technician 07/02/18 06/29/21 [facility] [address] [place] [address] documented as of this encounter
--- OUTSIDE RECORDS SUMMARY | 2022-09-12 09:18 | XMS_ITS | Encounter Summary ---
:1940 Author Organization [place] Address [address] [facility] [place] [address] Care Team Providers Name Role Phone Slava Hernandez PA-C Primary Care Provider Reason for Visit CV Testing (Routine) - Closed Specialty Diagnoses / Procedures Referred By Contact Refer red To Contact Diagnoses Cardiac pacemaker in situ Basil Guadalupe MD Procedures Cardiac Device Check - Remote [address] [place] [address] Referral ID Status Reason Start Date Expiration Date Visits Requ ested Visits Authorized [id number] Closed 10/15/2019 10/14/2020 1 1 Encounter Details Date Type Department Care Team Description 01/27/[address] [facility] Basil Guadalupe ardiac pacemaker in [facility] MD Tawanda situ [facility] Care [address] [facility] [address] [facility] [address] [place] [address] [place] [phone] (Work) [phone] Social History Tobacco Use Types Packs/Day Years [...] [address] [place], [place] [address] Trudi Grayson APRN INJECTION MOLDING TECHNICIAN [address] [place] [address] 11/16/2022 Ancillary Procedure Cardiology Timothy Smith MD [address] [place] [address] (Wo rk) documented as of this encounter [...] Range Method Time At Signature Date Time [id number] MEDTRONIC Interrogation Session Implantable [place] [employer] MEDTRONIC Pulse Generator Optical Glass Sawyer Implantable L121 ESSENTIO EL MEDTRONIC Pulse Generator Model Implantable 809786 MEDTRONIC Pulse Generator Serial Number Type Remote MEDTRONIC Interrogation Session Clinic Name [facility] MEDTRONIC Implantable Pacemaker MEDTRONIC Pulse Generator Type Implantable [id number] MEDTRONIC Pulse Generator Implant Date Implantable Lead [facility] [facility] MEDTRO RAUL Optical Glass Sawyer Implantable Lead 2087TC Tendril MEDTRONI C Model STS Implantable Lead [id number] MEDTRONIC Serial Number Implantable Lead [id number] MEDTRONIC Implant Date Implantable Lead Bipolar Lead MEDTRONIC Polarity Type Implantable Lead UNKNOWN MEDTRONIC Location Detail 1 Implantable Lead Right Atrium MEDTRONIC Location Implantable Lead [facility] [facility] MEDTRO RAUL Optical Glass Sawyer Implantable Lead 8TC Tendril MEDTRONI C Model STS Implantable Lead [id number] MEDTRONIC Serial Number Implantable Lead [id number] MEDTRONIC Implant Date Implantable Lead Bipolar Lead [...] 100 % MEDTRONIC Remaining Percentage Brandon Statistic [id number] MEDTRONIC Date Time Start Brandon Statistic 86208849059651 MEDTRONIC Date Time End Bradnon Statistic 0 % MEDTRONIC RA Percent Paced [...] [place] MEDTRONIC Statistic Vendor Type Category Episode [id number] MEDTRONIC Statistic Recent Date Time Start Episode [id number] MEDTRONIC Statistic Recent Date Time End Episode [id number] MEDTRONIC Statistic Recent Date Time Start Episode [id number] MEDTRONIC Statistic Recent Date Time End Episode [id number] MEDTRONIC Statistic Recent Date Time Start Episode [id number] MEDTRONIC Statistic Recent Date Time End Episode [id number] MEDTRONIC Statistic Recent Date Time Start Episode [id number] MEDTRONIC Statistic Recent Date Time End Episode APM-94 MEDTRONIC Identifier Episode Type Periodic EGM MEDTRONIC Category Episode Date [id number] MEDTRONIC Time Episode RVAT-2805 MEDTRONIC Identifier Episode Type Other MEDTRONIC Category Episode Date [id number] MEDTRONIC Time Episode V-1550 MEDTRONIC Identifier Episode Type [place] MEDTRONIC Category Episode Date [id number] MEDTRONIC Time Episode Duration 16 s MEDTRONIC Episode V-1549 MEDTRONIC Identifier Episode Type [place] MEDTRONIC Category Episode Date [id number] MEDTRONIC Time Episode Duration 26 s MEDTRONIC Episode V-1548 MEDTRONIC Identifier Episode Type [place] MEDTRONIC Category Episode Date [id number] MEDTRONIC Time Episode Duration 28 s MEDTRONIC Episode V-1547 MEDTRONIC Identifier Episode Type [place] MEDTRONIC Category Episode Date [id number] MEDTRONIC Time Episode Duration 12 s MEDTRONIC Episode V-1546 MEDTRONIC Identifier Episode Type [place] MEDTRONIC Category Episode Date [id number] MEDTRONIC Time Episode Duration 14 s MEDTRONIC Episode V-1545 MEDTRONIC Identifier Episode Type [place] MEDTRONIC Category Episode Date [id number] MEDTRONIC Time Episode Duration 21 s MEDTRONIC Episode V-1544 MEDTRONIC Identifier Episode Type [place] MEDTRONIC Category Episode Date [id number] MEDTRONIC Time Episode Duration 14 s MEDTRONIC Episode V-1543 MEDTRONIC Identifier Episode Type [place] MEDTRONIC Category Episode Date [id number] MEDTRONIC Time Episode Duration 37 s MEDTRONIC Episode V-1542 MEDTRONIC Identifier Episode Type [place] MEDTRONIC Category Episode Date [id number] MEDTRONIC Time Episode Duration 14 s MEDTRONIC Episode V-1541 MEDTRONIC Identifier Episode Type [place] MEDTRONIC Category Episode Date [id number] MEDTRONIC Time Episode Duration 23 s MEDTRONIC Anatomical Region Laterality Modality Other Specimen (Source) Anatomical Collection Method Collection Time Re ceived Time Location / / Volume Laterality 01/27/2020 12:41 AM CDT Narrative 02/10/2020 3:26 PM CDT [employer] Essentio (S) Remote PPM Device Check 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
--- OUTSIDE RECORDS SUMMARY | 2022-09-12 09:18 | XMS_ITS | Encounter Summary ---
:1940 Author Organization [place] Address [address] [place] [address] Care Team Providers Name Role Phone Slava Hernandez PA-C Primary Care Provider Reason for Referral (Routine) - Closed Specialty Diagnoses / Procedures Referred By Contact Refer red To Contact Diagnoses Persistent atrial fibrillation (H) Cardiac pacemaker in situ Elda Johnson APRN CNP [address] [place] [address] Referral ID Status Reason Start Date Expiration Date Visits Requ ested Visits Authorized [id number] Closed 01/20/2020 01/19/2021 1 1 Reason for Visit Reason Onset Date Comments Atrial Fib 01/20/2020 (Routine) - Closed Specialty Diagnoses / Procedures Referred By Contact Refer red To Contact Diagnoses Persistent atrial fibrillation (H) Timothy Smith MD [address] [place] [address] Referral ID Status Reason Start Date Expiration Date Visits Requ ested Visits Authorized [id number] Closed 06/25/2019 06/24/2020 1 1 Encounter Details Date Type Department Care Team Description 01/20/2020 Virtual Visit [facility] Elda Johnson atrial fibrillation (Primary Dx); Heart Clinic Shilpi Montoya APRN CNP Cardiac pacemaker in situ; [address] [facility] [address] [facility] Paroxysmal atrial fibrillation (H) [address] [place] [address] [place] [address] [phone] Social History Tobacco Use Types Packs/Day Years [...] this encounter Progress Notes Elda Johnson APRN QA AUTOMATION ENGINEER - 01/20/2020 9:30 AM CDT Haris Villa [...] invitation sent by: Text to cell phone: [phone] Doximity Video Start Time: 9:30 am Additional [...] (diabetes, CAD, age++) 3. Sinus node dysfunction??s/p??dual-chamber [employer] pacemaker 01/2016. 4. Coronary disease??s/p 4v CABG (1986) - ??VG -OM, VG-RCA, VG-LAD and VG- Diagonal at that time. Angiogram 01/2016 showed patent VGs 5. Cardiomyopathy?? 6. RBBB 7. Obstructive sleep apnea 8. type 2 diabetes 9. obesity Diagnostics: ?? Device check (10/2019) revealed A-paced <1% TRIM CREW SUPERVISOR: 61 % Stable leads. Battery life 9 [...] adverse side effects and Financial programs through [employer]. ?? Coronary artery disease. Patient had??a CABG [...] Dr. Smith and encouraged pt to seek [employer]'s financial assistance for Eliquis ?? Patient expresses understanding and agreement with the plan. ?? I appreciate the chance to help with Haris Villa Please let me know if you have any questions or concerns. ?? Elda Johnson APRN, AQUILINO Video-Visit Details Type of service: Video Visit Video End Time (time video stopped): 9:40 Originating Location (pt. Location): Home Distant Location (provider location): [facility] Mode of Communication: Video Conference via Moat Elda Johnson APRN CNP documented in this encounter Plan of Treatment Upcoming Encounters Date Type Specialty Care Team Description 09/28/2022 Lab Lab 09/28/2022 Office Visit Cardiology Timothy Smith MD [address] [place] [id number] Trudi Grayson APRN CNP [address] [address] 11/16/2022 Ancillary Procedure Cardiology Timothy Smith MD [address] [place] [address] (Wo rk) Scheduled Referrals Name Type Priority Associated Diagnoses Order S chedule Follow-Up with Referral Routine Persistent atrial Expected : Research Food Technologist fibrillation 07/21/2020 Cardiac pacemaker in (Approx imate), situ Expires: 01/19/2021 documented as of this encounter Visit Diagnoses Diagnosis Persistent atrial fibrillation (H) - [facility] jing Atrial fibrillation Cardiac pacemaker in situ Paroxysmal atrial fibrillation (H) Atrial fibrillation documented in this encounter Care Teams Electrical Equipment Assembler Relationship Specialty Start Date End Date Slava Hernandez PA-C PCP - General Physician Entertainment Usher 07/02/18 06/29/21 [facility] [id number] [place] [address] documented as of this encounter
--- OUTSIDE RECORDS SUMMARY | 2022-09-12 09:18 | XMS_ITS | Encounter Summary ---
:1940 Author Organization [place] Address [address] [address] Care Team Providers Name Role Phone Slava Hernandez PA-C Primary Care Provider Reason for Referral CV Testing (Routine) - Closed Specialty Diagnoses / Procedures Referred By Contact Refer red To Contact Diagnoses Cardiac pacemaker in situ [facility] Cv Cardiac Services Procedures Cardiac Device Check - In Clinic [address] [facility] [address] [place] [address] Referral ID Status Reason Start Date Expiration Date Visits Requ ested Visits Authorized [id number] Closed 06/25/2019 06/24/2020 1 1 Encounter Details Date Type Department Care Team Description 06/25/2019 [facility] Sary Riojas Cardi ac pacemaker in [facility] situ (Ria jing Dx) Heart Care [address] [facility] [address] [place] [address] Social History [...] 09/28/2022 Office Visit Cardiology Timothy Smith MD [address] [facility] [address] [place] [phone] Trudi Grayson APRN INFECTIOUS DISEASE TECHNICIAN [address] [address] 11/16/2022 Ancillary Procedure Cardiology Timothy Smith MD [address] [place] 188505 (Wo rk) documented as of this encounter Results PM DEVICE PROGRAMMING EVAL, DUAL LEAD PACER (10/15/2019 9:24 AM GROUNDWATER MONITORING TECHNICIAN) Component Value Ref Test Analysis Performed Pathologis t Range Method Time At Signature Date Time [employer] Interrogation Session Implantable [place] [employer] Pulse Generator Photostat Operator Implantable [id number] ESSENTIO EL [employer] Pulse Generator Model Implantable [id number] [employer] Pulse Generator Serial Number Type In Clinic [employer] Interrogation Session Clinic Name [facility] [employer] Implantable Pacemaker [employer] Pulse Generator Type Implantable [id number] [employer] Pulse Generator Implant Date Implantable Lead [facility]O RAUL Photostat Operator Implantable Lead [id number] Tendril MEDTRONI C Model STS Implantable Lead [id number] [employer] Serial Number Implantable Lead [id number] [employer] Implant Date Implantable Lead Bipolar Lead [employer] Polarity Type Implantable Lead UNKNOWN [employer] Location Detail 1 Implantable Lead Right Atrium [employer] Location Implantable Lead [facility] [employer] RAUL Photostat Operator Implantable Lead 2088TC Tendril MEDTRONI C Model STS Implantable Lead [id number] [employer] Serial Number Implantable Lead [id number] MEDTRONIC [...] NSVT MEDTR[employer]IC Statistic Vendor Type Category Episode [id number] [employer] Statistic Total Date Time End Episode 97 [employer] Statistic Recent Count Episode VT [employer] Statistic Type Category Episode NSVT [employer] Statistic Vendor Type Category Episode [id number] [employer] Statistic Recent Date Time Start Episode [id number] [employer] Statistic Recent Date Time End Anatomical Region Laterality Modality Other Specimen (Source) Anatomical Collection Method Collection Time Re ceived Time Location / / Volume Laterality 10/15/2019 3:46 PM GROUNDWATER MONITORING TECHNICIAN Narrative 10/16/2019 10:41 AM GROUNDWATER MONITORING TECHNICIAN [employer] [employer] Accolade (D) Pacemaker Device Check AP: <1 ?% ?? AUTOMOBILE SERVICE STATION ATTENDANT: 61 % ?? Mode: VVIR 60-130 (was [...] situ documented in this encounter Care Teams Internet Media Planner Relationship Specialty Start Date End Date Slava Hernandez PA-C PCP - General Physician Semi Driver 07/02/18 06/29/21 [facility] [id number] [place] [address] documented as of this encounter
--- OUTSIDE RECORDS SUMMARY | 2022-09-12 09:18 | XMS_ITS | Encounter Summary ---
:1940 Author Organization [place] Address [address] [place] [address] Care Team Providers Name Role Phone Slava Hernandez PA-C Primary Care Provider Encounter Details Date Type Department Care Team Description 02/03/2019 [facility] Only [facility] Heart Logistics Solution Manager jordyn systolic [facility] [place] congestive heart failure [address] [facility] [address] [place] [address] Social History Tobacco Use [...] [address] [place] [id number] Trudi Grayson APRN ARTIFICIAL FLOWER MAKER [address] [place] [address] 11/16/2022 Ancillary Procedure Cardiology Timothy Smith MD [address] [place] 518365 (Wo rk) documented as of this encounter Procedures Procedure Name Priority Date/Time Associated Diagnosis Comme nts BASIC METABOLIC Routine 02/03/2019 11:17 AM Chronic systolic R esults for this PANEL CDT congestive heart procedure a re in failure (H) the results section. documented in this encounter Results (ABNORMAL) Basic metabolic panel (02/03/2019 11:17 AM CDT) Analysis Performed At [facility] Time Signature Sodium 140 133 - 144 02/03/2019 [facility] mmol/L 12:07 PM [facility] Potassium 4.1 3.4 - 5.3 02/03/2019 [facility] mmol/L 12:07 PM [facility] Chloride 104 94 - 109 02/03/2019 [facility] mmol/L 12:07 PM [facility] Carbon Dioxide 30 20 - 32 02/03/2019 [facility] mmol/L 12:15 PM [facility] Anion Gap 6 3 - 14 02/03/2019 [facility] mmol/L 12:15 PM [facility] Glucose 95 70 - 99 02/03/2019 [facility] mg/dL 12:15 PM [facility] Urea Nitrogen 39 (H) 7 - 30 02/03/2019 [facility] mg/dL 12:15 PM [facility] Creatinine 1.64 (H) 0.66 - 02/03/2019 [facility] 1.25 mg/dL 12:15 PM [facility] GFR Estimate 39 (L) >60 02/03/2019 [facility] mL/min/{1. 12:15 PM [facility] 73_m2} HOSPITAL Comment: Non GFR Calc Starting 09/17/2018, serum creatinine ba sed estimated GFR (eGFR) will be calculated using the Chronic Kidney Dise [facility] Epidemiology Collaboration (CKD-EPI) equation. GFR Estimate If 45 (L) >60 mL/min/{1.73_m2} 02/03/2019 12:15 PM [facility] Comment: GFR Calc Starting 09/17/2018, serum creatinine ba sed estimated GFR (eGFR) will be calculated using the Chronic Kidney Dise [facility] Epidemiology Collaboration (CKD-EPI) equation. Calcium 9.6 8.5 - 10.1 mg/dL 02/03/2019 12:15 PM [facility] Specimen Anatomical Collection Method Collection Time Receive d Time (Source) Location / / Volume Laterality Blood specimen 02/03/2019 11:17 9 (specimen) AM CDT 11:22 AM CDT Elda Johnson APRN ARTIFICIAL FLOWER MAKER LAB - BLOOD ORDERABL ES Performing Organization Address City/State/ZIP Code Phon e Number M [facility] [address] [place], [place] [address] [facility] [address] [place], [place] [address] [place] [address] documented in this encounter Visit Diagnoses Diagnosis Chronic systolic congestive heart failur e (H) Chronic systolic heart failure documented in this encounter Care Teams Refrigerator Glazier Relationship Specialty Start Date End Date Slava Hernandez PAIlanaC PCP - General Physician Mailmaster 07/02/18 06/29/21 [facility] [address] [place] [address] documented as of this encounter
--- OUTSIDE RECORDS SUMMARY | 2022-09-12 09:18 | XMS_ITS | Encounter Summary ---
:1940 Author Organization [place] Address [facility] [place] [address] Care Team Providers Name Role Phone Slava Hernandez PA-C Primary Care Provider Reason for Visit Reason Onset Date Comments Refill Request 07/11/2019 Eliquis Encounter Details Date Type Department Care Team Description 07/11/2019 Refill [facility] Heart Zarina Smith MD Refill Request (Eliquis) [facility] [place] [address] [place] [phone] [place] [address] [place] [phone] [phone] Social History Tobacco Use Types Packs/Day Years [...] 09/28/2022 Office Visit Cardiology Timothy Smith MD [address] [place] [address] Trudi Grayson APRN ASSEMBLY DETAILER [address] [place] [address] 11/16/2022 Ancillary Procedure Cardiology Timothy Smith MD [address] [place] [address] (Wo rk) documented as of this encounter Visit Diagnoses Diagnosis Paroxysmal atrial fibrillation (H) Atrial fibrillation documented in this encounter Care Teams Psychiatric Therapist Relationship Specialty Start Date End Date Slava Hernandez PA-C PCP - General Physician Regulatory Submissions Associate 07/02/18 06/29/21 [facility] [address] [place], [place] [id number] documented as of this encounter
--- OUTSIDE RECORDS SUMMARY | 2022-09-12 09:18 | XMS_ITS | Encounter Summary ---
:1940 Author Organization [place] Address [address] [place] [address] Care Team Providers Name Role Phone Mary Slava Estrella PA-C Primary Care Provider Reason for Visit Reason Onset Date Comments Refill Request 10/15/2019 send eliquis to mail order pharmacy-I gave him samples to PU as he has not bee n taking due to cost Encounter Details Date Type Department Care Team Description 10/15/2019 Refill [facility] Heart Zarina Smith MD Refill Request (send [facility] [address]ena to mail order [address] [facility] [address] pharmacy-I gave him [address] [place] [address] samples to PU as he has [place] [phone] not been taking due to [phone] cost) Social History Tobacco Use Types Packs/Day [...] 09/28/2022 Office Visit Cardiology Timothy Smith MD [address] [place] [phone] Trudi Grayson APRN INSULATION WORKER FURNACE INSTALLER [address] [address] 11/16/2022 Ancillary Procedure Cardiology Timothy Smith MD [address] [place] [address] (Wo rk) documented as of this encounter Visit Diagnoses Diagnosis Paroxysmal atrial fibrillation (H) Atrial fibrillation documented in this encounter Care Teams Bass String Winder Relationship Specialty Start Date End Date Slava Hernandez PA-C PCP - General Physician Survey Data Technician 07/02/18 06/29/21 [facility] [address] [place] [address] documented as of this encounter
--- OUTSIDE RECORDS SUMMARY | 2022-09-12 09:18 | XMS_ITS | Encounter Summary ---
:1940 Author Organization [place] Address [address] [facility] [place] [address] Care Team Providers Name Role Phone Slava Hernandez PA-C Primary Care Provider Reason for Referral (Routine) - Closed Specialty Diagnoses / Procedures Referred By Contact Refer red To Contact Diagnoses Persistent atrial fibrillation (H) Ankur Smith MD [address] [place] [address] Referral ID Status Reason Start Date Expiration Date Visits Requ ested Visits Authorized [id number] Closed 07/07/2020 07/07/2021 1 1 (Routine) - Closed Specialty Diagnoses / Procedures Referred By Contact Refer red To Contact Diagnoses Persistent atrial fibrillation (H) Ankur Smith MD [address] [place] [address] Referral ID Status Reason Start Date Expiration Date Visits Requ ested Visits Authorized [id number] Closed 07/07/2020 07/07/2021 1 1 Reason for Visit Reason Comments Atrial Fib (Routine) - Closed Specialty Diagnoses / Procedures Referred By Contact Refer red To Contact Diagnoses Persistent atrial fibrillation (H) Ankur Smith MD [address] [place] [address] Referral ID Status Reason Start Date Expiration Date Visits Requ ested Visits Authorized [id number] Closed 06/25/2019 06/24/2020 1 1 Encounter Details Date Type Department Care Team Description 07/07/2020 Office Visit [facility] Ankur Smith MD Persistent atrial Heart Clinic [address] fibrillati on (H) [place] [address] [address] [place], [place] [address] [address] [place], [place] (Work) [address] Social History Tobacco Use [...] scheduled for 1 year. cc: HANK Handley [place] [phone] ANKUR SMITH MD MT: CAITLYN Name: RADHA VILLA MRN: [id number] Account: [id number] : 1940 Service Date: 07/07/2020 Document: [id number] Ankur Smith - 07/07/2020 10:45 AM CDT HPI and Plan: See dictation Orders Placed This Encounter Procedures ??? Follow-Up with Musical Instrument Maker ??? Follow-Up with Cardiac Advanced Practice Provider [...] on phone: None Gets together: None Attends scientologist service: None Active member of club or [...] MD [address] [place] [address] documented in this encounter Plan of Treatment Upcoming Encounters Date Type Specialty Care Team Description 09/28/2022 Lab Lab 09/28/2022 Office Visit Cardiology Ankur Smith MD [address] [place] [address] Trudi Grayson, [employer] REP [address] [phone] 11/16/2022 Ancillary Procedure Cardiology Ankur Smith MD [address] [place] [address] (Wo rk) Scheduled Referrals Name Type Priority Associated Diagnoses Order S chedule Follow-Up with Referral Routine Persistent atrial Expected : Musical Instrument Maker fibrillation 03/29/20 22 (Approximate), Expires: 07/27/2022 Follow-Up with Cardiac Referral Routine Persistent atrial Expected: Advanced Practice Provider fibrillation 1 (Approximate), Expires: 11/19/2021 documented as of this encounter Visit Diagnoses Diagnosis Persistent atrial fibrillation (H) Atrial fibrillation documented in this encounter Care Teams Label Stamper Relationship Specialty Start Date End Date Slava Hernandez PAIlanaC PCP - General Physician Farm Implement Mechanic 07/02/18 06/29/21 [facility] [address] [place] [address] documented as of this encounter
--- OUTSIDE RECORDS SUMMARY | 2022-09-12 09:18 | XMS_ITS | Encounter Summary ---
:1940 Author Organization [place] Address [address] [place] [address] Care Team Providers Name Role Phone Slava Hernandez PA-C Primary Care Provider Reason for Referral (Routine) - Closed Specialty Diagnoses / Procedures Referred By Contact Refer red To Contact Diagnoses Persistent atrial fibrillation (H) Ankur Smith MD [address] [place] [address] Referral ID Status Reason Start Date Expiration Date Visits Requ ested Visits Authorized [id number] Closed 06/25/2019 06/24/2020 1 1 (Routine) - Closed Specialty Diagnoses / Procedures Referred By Contact Refer red To Contact Diagnoses Persistent atrial fibrillation (H) Ankur Smith MD [address] [place] [address] Referral ID Status Reason Start Date Expiration Date Visits Requ ested Visits Authorized [id number] Closed 06/25/2019 06/24/2020 1 1 Reason for Visit Reason Comments Consult AF, cardiomyopathy, PPM, CA D (Routine) - Closed Specialty Diagnoses / Procedures Referred By Contact Refer red To Contact Diagnoses Persistent atrial fibrillation (H) Chronic systolic congestive heart failure (H) Elda Johnson, [employer]AC[employer] ROLLE [address] [place] [address] Referral ID Status Reason Start Date Expiration Date Visits Requ ested Visits Authorized [id number] Closed 01/22/2019 01/22/2020 1 1 Encounter Details Date Type Department Care Team Description 06/25/2019 Office Visit [facility] Alex Ryannterri Montoya, ARTIST SUSPECT CANVAS SHRINKER [address] [place] [address] Persistent atrial fibrillation (H); Heart Clinic Ankur Smith MD [address] [place] [phone] Chronic systolic congestive heart failur e (H) [place] [address] [place] [address] [address] [place] [phone] Social History Tobacco Use Types Packs/Day Years [...] encouraged to lose weight. cc: HANK Handley [facility] [address] [place] [address] ANKUR SMITH MD MT: CAITLYN Name: RADHA VILLA Account: [id number] : 1940 Service Date: 06/25/2019 Document: [id number] Ankur Smith MD - 06/25/2019 10:15 AM CDT HPI and Plan: See dictation Orders Placed This Encounter Procedures ??? Follow-Up with Cardiac Advanced Practice Provider ??? Follow-Up with Rd Mechanical Engineer ??? EKG 12-lead complete w/read (Future)- to [...] Other Topics Concern ??? Parent/sibling w/ CABG, MS or angioplasty before 65F 55M? No ??? [...] Oriented x 3 CC Slava Hernandez, MARIBEL [facility] [address] [place] [address] documented in this encounter Plan of Treatment Upcoming Encounters Date Type Specialty Care Team Description 09/28/2022 Lab Lab 09/28/2022 Office Visit Cardiology Ankur Smith MD [address] [place] [phone] Trudi Grayson, FLACO CANVAS SHRINKER [address] [phone] 11/16/2022 Ancillary Procedure Cardiology Ankur Smith MD [address] [place] [address] (Wo rk) Scheduled Referrals Name Type Priority Associated Diagnoses Order S chedule Follow-Up with Cardiac Referral Routine Persistent atrial Expected: Advanced Practice Provider fibrillation ( H) 12/24/2019 (Approximate), Expires: 06/24/2020 Follow-Up with Referral Routine Persistent atrial Expected : Rd Mechanical Engineer fibrillation (H) 06/02 (Approximate), Expires: 11/06/2020 documented [...] failure documented in this encounter Care Teams Aircraft Worker Relationship Specialty Start Date End Date Slava Hernandez PAIlanaC PCP - General Physician Pedigree Researcher 07/02/18 06/29/21 [facility] [id number] [place] [address] documented as of this encounter
--- OUTSIDE RECORDS SUMMARY | 2022-09-12 09:18 | XMS_ITS | Encounter Summary ---
:1940 Author Organization [place] Address [address] [facility] [place] [address] Care Team Providers Name Role Phone Slava [...] [address] [place] [address] Trudi Grayson, FLACO SENIOR ASSOCIATE [address] [address] 11/16/2022 Ancillary Procedure Cardiology Timothy Smith MD [address] [place] [address] (Wo rk) documented as of this encounter Visit Diagnoses Not on filedocumented in this encounter Care Teams Finish Inspector Relationship Specialty Start Date End Date Slava Hernandez PA-C PCP - General Physician Implementation Specialist 07/02/18 06/29/21 [facility] [id number] [place] [address] documented as of this encounter
--- OUTSIDE RECORDS SUMMARY | 2022-09-12 09:18 | XMS_ITS | Encounter Summary ---
:1940 Author Organization [place] Address [facility] [place] [address] Care Team Providers Name Role Phone Slava Hernandez PA-C Primary Care Provider Reason for Visit Reason Onset Date Comments Medication Request 10/31/2019 Encounter Details Date Type Department Care Team Description 10/31/2019 [facility] Urology Shea Rivera , Medication Request Clinic [place]pi LÓPEZ [address] [place] [address] [place] [id number] (Wo rk) Social History Tobacco Use Types Packs/Day Years Used Date Smoking Tobacco: Never Smokeless Tobacco: Never Alcohol Use Standard Drinks/Week Comments No 0 (1 standard drink = 0.6 oz pure alcoho l) Sex Assigned at Date Recorded Not on file documented as of this encounter Miscellaneous Notes Telephone Encounter - Heriberto Grossman - 10/31/2019 8:47 AM CST [facility] Call Center Phone Message May a detailed message be left on voicemail: yes Reason for Call: Medication Refill Request Has the patient contacted the pharmacy for the refill? Yes Name of medication being requested: tamsulosin (FLOMAX) 0.4 MG capsule Provider who prescribed the medication: Beverly Davis, RN Pharmacy: [facility] [address] AT PORTAL TO REGISTERED CAREBRISTOL SITES Date medication is needed: 2/3 Action Taken: Message routed to: [facility] urology ECT DESIGNER documented in this encounter Plan of Treatment Upcoming Encounters Date Type Specialty Care Team Description 09/28/2022 Lab Lab 09/28/2022 Office Visit Cardiology Timothy Smith MD [address] [place] [address] Trudi Grayson APRN REGIONAL CRA [address] [place] [address] 11/16/2022 Ancillary Procedure Cardiology Timothy Smith MD [address] [place] [id number] (Wo rk) documented as of this encounter Visit Diagnoses Diagnosis BPH (benign prostatic hyperplasia) - Ria jing Unspecified hyperplasia of prostate with out urinary obstruction and other lower urinary tract symptoms (LUTS) documented in this encounter Care Teams Candy Depositing Machine Operator Relationship Specialty Start Date End Date Slava Hernandez PA-C PCP - General Physician Assembler Plastic Boat 07/02/18 06/29/21 [facility] [address] [place] [address] documented as of this encounter
--- OUTSIDE RECORDS SUMMARY | 2022-09-12 09:19 | XMS_ITS | Encounter Summary ---
:1940 Author Organization [facility] Address [address] [facility] [place] [address] Care Team Providers Name Role Phone Slava Hernandez PA-C Primary Care Provider Reason for Visit Reason Comments CORE Enrollment Encounter Details Date Type Department Care Team Description 02/03/[address] [facility] Arron Johnson APRN RESEARCH & INSIGHTS EXECUTIVE [address] [place] [address] Chronic systolic Heart Clinic Lina Noriega APRN RESEARCH & INSIGHTS EXECUTIVE [address] [facility] [address] [place], [place] [address] congestive heart Silvis failure (H) [address] [facility] [address] [place] [address] Social History Tobacco Use Types [...] for any questions or concerns Mon-Fri 8am-4pm: [phone] For concerns after hours: [phone] Medication changes: No changes Plan from today: [...] 3. Sinus node dysfunction: Status post dual-chamber [employer] pacemaker 01/2016. 4. Coronary disease: Status [...] AQUILINO MT: PERLITA Name: RADHA VILLA Account: [id number] : 1940 Service Date: 02/03/2019 Document: [id number] Lina Noriega APRN CNP - 02/03/2019 10:50 AM CDT HPI and Plan: See [id number] No orders of the defined types were [...] on phone: None Gets together: None Attends uatsdin service: None Active member of club or [...] Oriented x 3 CC Elda Johnson APRN RESEARCH & INSIGHTS EXECUTIVE [address] [place] [address] documented in this encounter Plan of Treatment Upcoming Encounters Date Type Specialty Care Team Description 09/28/2022 Lab Lab 09/28/2022 Office Visit Cardiology Timothy Smith MD [address] [place] [address] Trudi Grayson APRN RESEARCH & INSIGHTS EXECUTIVE [address] [place] [address] 11/16/2022 Ancillary Procedure Cardiology Timothy Smith MD [address] [place] [address] (Wo rk) documented as of this encounter Visit Diagnoses Diagnosis Chronic systolic congestive heart failur e (H) Chronic systolic heart failure documented in this encounter Care Teams Business Support Liaison Relationship Specialty Start Date End Date Slava Hernandez PA-C PCP - General Physician Electronics Mechanic 07/02/18 06/29/21 [facility] [id number] [place] [address] documented as of this encounter
--- OUTSIDE RECORDS SUMMARY | 2022-09-12 09:19 | XMS_ITS | Encounter Summary ---
:1940 Author Organization [place] Address [address] [facility] [address] Care Team Providers Name Role Phone Slava Hernandez PA-C Primary Care Provider Encounter Details Date Type Department Care Team Description 01/22/2019 [facility] Heart [facility] [place] fibrillation (H) [address] [facility] [address] [place] [address] Social History Tobacco Use [...] [address] [place] [address] Trudi Grayson APRN DINING MANAGER [address] [place] [address] 11/16/2022 Ancillary Procedure Cardiology Timothy Smith MD [address] [place] [id number] (Wo rk) documented as of this encounter [...] - 144 01/22/2019 [facility] mmol/L 10:08 AM [facility] Potassium 4.1 3.4 - 5.3 01/22/2019 [facility] mmol/L 10:08 AM [facility] Chloride 105 94 - 109 01/22/2019 [facility] mmol/L 10:08 AM [facility] Carbon Dioxide 31 20 - 32 01/22/2019 [facility] mmol/L 10:17 AM [facility] Anion Gap 4 3 - 14 01/22/2019 [facility] mmol/L 10:17 AM [facility] Glucose 102 (H) 70 - 99 01/22/2019 [facility] mg/dL 10:17 AM [facility] Urea Nitrogen 37 (H) 7 - 30 01/22/2019 [facility] mg/dL 10:17 AM [facility] Creatinine 1.63 (H) 0.66 - 01/22/2019 [facility] 1.25 mg/dL 10:17 AM [facility] GFR Estimate 39 (L) >60 01/22/2019 [place] mL/min/{1. 10:17 AM [facility] 73_m2} HOSPITAL Comment: Non GFR Calc Starting 09/17/2018, serum creatinine ba sed estimated GFR (eGFR) will be calculated using the Chronic Kidney Dise [facility] Epidemiology Collaboration (CKD-EPI) equation. GFR Estimate If 45 (L) >60 mL/min/{1.73_m2} 01/22/2019 10:17 AM [facility] Comment: GFR Calc Starting 09/17/2018, serum creatinine ba sed estimated GFR (eGFR) will be calculated using the Chronic Kidney Dise [facility] Epidemiology Collaboration (CKD-EPI) equation. Calcium 9.7 8.5 - 10.1 mg/dL 01/22/2019 10:[address] [facility] Specimen Anatomical Collection Method Collection Time Receive d Time (Source) Location / / Volume Laterality Blood specimen 01/22/2019 9:14 AM 019 9:17 (specimen) CDT AM CDT Timothy Smith MD LAB - BLOOD ORDERABLES Performing Organization Address City/State/ZIP Code Phon e Number M [facility] [address] [place], [place] [address] [facility] [address] [place], [place] [address] [place] [address] documented in this encounter Visit Diagnoses Diagnosis Persistent atrial fibrillation (H) Atrial fibrillation documented in this encounter Care Teams Factory Maintenance Technician Relationship Specialty Start Date End Date Slava Hernandez PA-C PCP - General Physician Senior Restaurant Manager 07/02/18 06/29/[address] [address] documented as of this encounter
--- OUTSIDE RECORDS SUMMARY | 2022-09-12 09:19 | XMS_ITS | Encounter Summary ---
:1940 Author Organization [place] Address [facility] [place] [address] Care Team Providers Name Role Phone Slava Hernandez PA-C Primary Care Provider Reason for Visit Reason Onset Date Comments Refill Request 12/31/2018 Tamsulosin Encounter Details Date Type Department Care Team Description 12/31/2018 Refill [facility] Shea Rivera, Refill Request Urology Clinic Patt LÓPEZ (Tamsulosin) [address] [place] [address] [place], [place] [address] (Wo rk) Social History Tobacco Use Types [...] PA-C Sent: 12/30/2018 4:35 PM To: Afsaneh Chacon, # Subject: RE: Medication Please call in tamsulosin 0.4mg daily #90 4 refills and let pt know. Thanks,MH ----- Message ----- From: Afsaneh Chacon Sent: 12/30/2018 9:51 AM To: Shea Rivera PA-C, # Subject: Medication Shea/ Nurses, Patient came in with Terazosin 5mg CAP And said he would like to switch back to Tamsulosin 0.4mg CAP. His preffered pharmacy is [facility], mail order. 90 day supply Call back if needed is [phone] Thanks! documented in this encounter Plan of Treatment Upcoming Encounters Date Type Specialty Care Team Description 09/28/2022 Lab Lab 09/28/2022 Office Visit Cardiology Timothy Smith MD [address] [place] [address] Trudi Grayson, FLACO OUTPATIENT SURGERY RN [address] [place] [address] 11/16/2022 Ancillary Procedure Cardiology Timothy Smith MD [address] [place] [address] (Wo rk) documented as of this encounter Visit Diagnoses Diagnosis Urinary frequency - Primary Weak urinary stream Slowing of urinary stream documented in this encounter Care Teams Dispatcher Automobile Rental Relationship Specialty Start Date End Date Slava Hernandez PA-C PCP - General Physician Information Assurance Officer 07/02/18 06/29/21 [facility] [address] [place] [address] documented as of this encounter
--- OUTSIDE RECORDS SUMMARY | 2022-09-12 09:19 | XMS_ITS | Encounter Summary ---
:1940 Author Organization [place] Address [facility] [place] [address] Care Team Providers Name Role Phone Slava [...] [address] [place] [address] Trudi Grayson APRN FINANCIAL RETIREMENT PLAN SPECIALIST [address] [id number] 11/16/2022 Ancillary Procedure Cardiology Timothy Smith MD [address] [place] [phone] (Wo rk) documented as of this encounter Visit Diagnoses Not on filedocumented in this encounter Care Teams Audio Specialist Relationship Specialty Start Date End Date Slava Hernandez PA-C PCP - General Physician Hoop Flaring Machine Operator 07/02/18 06/29/21 [facility] [address] [place] [address] documented as of this encounter
--- OUTSIDE RECORDS SUMMARY | 2022-09-12 09:19 | XMS_ITS | Encounter Summary ---
:1940 Author Organization [place] Address [facility] [place] [address] Care Team Providers Name Role Phone Slava [...] [address] [place] [phone] Trudi Grayson APRN FIELD SUPERVISOR [address] [phone] 11/16/2022 Ancillary Procedure Cardiology Timothy Smith MD [address] [place] [phone] (Wo rk) documented as of this encounter Visit Diagnoses Not on filedocumented in this encounter Care Teams Captain Fire Prevention Bureau Relationship Specialty Start Date End Date Slava Hernandez PA-C PCP - General Physician Fighter Pilot 07/02/18 06/29/21 [facility] [address] [place] [address] documented as of this encounter
--- OUTSIDE RECORDS SUMMARY | 2022-09-12 09:19 | XMS_ITS | Encounter Summary ---
:1940 Author Organization [place] Address [facility] 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) [facility] [address] [place] [address] [place] [address] [phone] Social History Tobacco Use Types Packs/Day Years Used Date Smoking Tobacco: Never Smokeless Tobacco: Never Alcohol Use Standard Drinks/Week Comments No 0 (1 standard drink = 0.6 oz pure alcoho l) Sex Assigned at Date Recorded Not on file documented as of this encounter Last Filed Vital Signs Vital Sign Reading Time Taken Comments Blood Pressure 104/61 11/28/2018 10:40 AM BUSINESS SERVICES DIRECTOR Pulse 54 11/28/2018 10:40 AM BUSINESS SERVICES DIRECTOR Temperature - - Respiratory Rate - - Oxygen Saturation - - Inhaled Oxygen Concentration - - Weight 140.6 kg (310 lb) 11/28/2018 10:40 AM BUSINESS SERVICES DIRECTOR Height 180.3 cm (5' 10.98) 11/28/2018 10:40 AM BUSINESS SERVICES DIRECTOR Body Mass Index 43.26 11/28/2018 10:40 AM BUSINESS SERVICES DIRECTOR documented in this encounter Progress Notes Alex Elda Montoya, FLACO KICKBOXING INSTRUCTOR - 11/28/2018 10:50 AM CST HPI: Haris [...] age++) 4. Sinus node dysfunction s/p dual-chamber [employer] pacemaker 01/2016. 5. Coronary disease status [...] patient declined. Diagnostics: EKG (11/15/2018) revealed intermittent PICKER AND PACKER @ 76 bpm with 2 PVCs of [...] any questions or concerns. Elda Johnson APRN, KICKBOXING INSTRUCTOR This note was completed in part using Music [employer] voice recognition software. Although reviewed after completion, [...] on phone: None Gets together: None Attends denominational service: None Active member of club or [...] No referring provider defined for this encounter. NESS SERVICES DIRECTOR documented in this encounter Plan of Treatment Upcoming Encounters Date Type Specialty Care Team Description 09/28/2022 Lab Lab 09/28/2022 Office Visit Cardiology Timothy Smith MD [address] [place] [address] Trudi Grayson APRN KICKBOXING INSTRUCTOR [address] [address] 11/16/2022 Ancillary Procedure Cardiology Timothy Smith MD [address] [place] [phone] (Wo rk) documented as of this encounter Results (ABNORMAL) Basic metabolic panel (12/12/2018 9:12 AM CDT) Analysis Performed At [facility] Time Signature Sodium 143 133 - 144 12/12/2018 [facility] mmol/L 9:51 AM [facility] Potassium 4.2 3.4 - 5.3 12/12/2018 [facility] mmol/L 9:51 AM [facility] Chloride 106 94 - 109 12/12/2018 [facility] mmol/L 9:51 AM [facility] Carbon Dioxide 31 20 - 32 12/12/2018 [facility] mmol/L 9:56 AM [facility] Anion Gap 6 3 - 14 12/12/2018 [place] mmol/L 9:56 AM [facility] Glucose 101 (H) 70 - 99 12/12/2018 [place] mg/dL 9:56 AM [facility] Urea Nitrogen 55 (H) 7 - 30 12/12/2018 [place] mg/dL 9:56 AM [facility] Creatinine 2.20 (H) 0.66 - 12/12/2018 [facility] 1.25 mg/dL 9:56 AM [facility] GFR Estimate 27 (L) >60 12/12/2018 [place] mL/min/{1. 9:56 AM [facility] 73_m2} [facility] Comment: Non GFR Calc Starting 09/17/2018, serum creatinine ba sed estimated GFR (eGFR) will be calculated using the Chronic Kidney Dise [facility] Epidemiology Collaboration (CKD-EPI) equation. GFR Estimate If 32 (L) >60 mL/min/{1.73_m2} 12/12/2018 9: 56 AM [facility] Comment: GFR Calc Starting 09/17/2018, serum creatinine ba sed estimated GFR (eGFR) will be calculated using the Chronic Kidney Dise [facility] Epidemiology Collaboration (CKD-EPI) equation. Calcium 8.8 8.5 - 10.1 mg/dL 12/12/2018 9:56 AM [facility] Specimen Anatomical Collection Method Collection Time Receive d Time (Source) Location / / Volume Laterality Blood specimen 12/12/2018 9:12 AM 019 9:14 (specimen) CDT AM T Elda Johnson APRN KICKBOXING INSTRUCTOR LAB - BLOOD ORDERABL ES Performing Organization Address City/State/ZIP Code Phon e Number M [facility] [address] [place], [place] [address] [facility] [address] [place], [place] [address] [facility] [phone] documented in this encounter Visit Diagnoses Diagnosis Localized edema - Primary Edema Ischemic cardiomyopathy Other specified forms of chronic ischemi c heart disease 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
--- OUTSIDE RECORDS SUMMARY | 2022-09-12 09:19 | XMS_ITS | Encounter Summary ---
:1940 Author Organization [place] Address [address] [place] [address] Care Team Providers Name Role Phone Slava Hernandez PA-C Primary Care Provider Reason for Referral - Closed Specialty Diagnoses / Procedures Referred By Contact Refer red To Contact Diagnoses Persistent atrial fibrillation (H) Ankur Smith MD [address] [place] [address] Referral ID Status Reason Start Date Expiration Date Visits Requ ested Visits Authorized [id number] Closed 01/01/2019 01/01/2020 1 1 Reason for Visit Reason Comments Edema Cardiomyopathy Encounter Details Date Type Department Care Team Description 01/01/2019 Office Visit [facility] Ankur Smith MD ACS (acute coronary syndrome) (H) (Prima ry Dx); [facility] [place] [address] Palpitations; [address] Persistent atrial fibrillation (H) [facility] [address] [place] [address] [place] [phone] Social History Tobacco Use Types Packs/Day Years [...] have rapid ventricular rate. cc: HANK Handley [facility] [address] [place] [address] ANKUR SMITH MD MT: CAITLYN Name: RADHA VILLA Account: [id number] : 1940 Service Date: 01/01/2019 Document: [id number] Ankur Smith MD - 01/01/2019 11:15 AM [...] on phone: None Gets together: None Attends religion service: None Active member of club or organization: None Attends meetings of clubs or organizations: None Relationship status: None ??? Intimate partner violence: Fear of current or ex partner: None Emotionally abused: None Physically abused: None Forced sexual activity: None Other Topics Concern ??? Parent/sibling w/ CABG, [place] or angioplasty before 65F 55M? No ??? [...] Oriented x 3 CC Slava Hernandez PA-C [facility] [id number] [place] [address] documented in this encounter Plan of Treatment Upcoming Encounters Date Type Specialty Care Team Description 09/28/2022 Lab Lab 09/28/2022 Office Visit Cardiology Ankur Smith MD [address] [place] [phone] Trudi Grayson, FLACO ANGLE DOZER OPERATOR [address] [id number] 11/16/2022 Ancillary Procedure Cardiology Ankur Smith MD [address] [place] [phone] (Wo rk) Scheduled Referrals Name Type Priority Associated Diagnoses Order S chedule Follow-Up with Referral Routine Persistent atrial Expected : 01/15/2019 Cardiac Advanced fibrillation (H) (Approx imate), Practice Provider Expires: 0 01/01/2020 documented as of this encounter Results (ABNORMAL) Basic metabolic panel (01/22/2019 9:14 AM [facility]) Analysis Performed At [facility] Time Signature Sodium 140 133 - 144 01/22/2019 [facility] mmol/L 10:08 AM [facility] Potassium 4.1 3.4 - 5.3 01/22/2019 [facility] mmol/L 10:08 AM [facility] Chloride 105 94 - 109 01/22/2019 [facility] mmol/L 10:08 AM [facility] Carbon Dioxide 31 20 - 32 01/22/2019 [facility] mmol/L 10:17 AM [facility] Anion Gap 4 3 - 14 01/22/2019 [place] mmol/L 10:17 AM [facility] Glucose 102 (H) 70 - 99 01/22/2019 [place] mg/dL 10:17 AM [facility] Urea Nitrogen 37 (H) 7 - 30 01/22/2019 [facility] mg/dL 10:17 AM [facility] Creatinine 1.63 (H) 0.66 - 01/22/2019 [facility] 1.25 mg/dL 10:17 AM [facility] GFR Estimate 39 (L) >60 01/22/2019 [place] mL/min/{1. 10:17 AM [facility] 73_m2} HOSPITAL Comment: Non GFR Calc Starting 09/17/2018, serum creatinine ba sed estimated GFR (eGFR) will be calculated using the Chronic Kidney Dise [facility] Epidemiology Collaboration (CKD-EPI) equation. GFR Estimate If 45 (L) >60 mL/min/{1.73_m2} 01/22/2019 10:17 AM [facility] Comment: GFR Calc Starting 09/17/2018, serum creatinine ba sed estimated GFR (eGFR) will be calculated using the Chronic Kidney Dise [facility] Epidemiology Collaboration (CKD-EPI) equation. Calcium 9.7 8.5 - 10.1 mg/dL 01/22/2019 10:17 AM [facility] Specimen Anatomical Collection Method Collection Time Receive d Time (Source) Location / / Volume Laterality Blood specimen 01/22/2019 9:14 AM 019 9:17 (specimen) CDT AM CDT Ankur Smith MD LAB - BLOOD ORDERABLES Performing Organization Address City/State/ZIP Code Phon e Number M [facility] [address] [place], [place] [address] [facility] [address] [place], [place] [address] [place] [address] documented in this encounter Visit Diagnoses Diagnosis ACS (acute coronary syndrome) (H) - Prim arnie Intermediate coronary syndrome Palpitations Persistent atrial fibrillation (H) Atrial fibrillation documented in this encounter Care Teams Rotor Coil Taper Relationship Specialty Start Date End Date Slava Hernandez PA-C PCP - General Physician Scene And Lighting Design Lecturer 07/02/18 06/29/21 [facility] [address] [place] [address] documented as of this encounter
--- OUTSIDE RECORDS SUMMARY | 2022-09-12 09:19 | XMS_ITS | Encounter Summary ---
:1940 Author Organization [place] Address [address] [facility] [place] [address] Care Team Providers Name Role Phone Slava Hernandez PA-C Primary Care Provider Encounter Details Date Type Department Care Team Description 12/12/2018 Telephone [facility] Heart Elda Johnson, Clinic [place] [facility] [address] [facility] [address] [place] [address] [place] [address] [phone] Social History Tobacco Use Types Packs/Day Years [...] Sunday at 1115. Jing Telephone Encounter - Layc Washington RN - 12/27/2018 10:46 AM CDT [...] on 12/18 as he has OV at [facility] on the same day. Pt states that he will decide on the OV already scheduled on 01/20. 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
--- OUTSIDE RECORDS SUMMARY | 2022-09-12 09:19 | XMS_ITS | Encounter Summary ---
:1940 Author Organization [place] Address [address] [facility] [place] [address] Care Team Providers Name Role Phone Slava [...] PERICARDIOCENTESIS HC ECHO MYOCARD BX MARIBEL Torres [address] C INJECTION, PERFLUTREN LIPI D MICROSPHERES, PER ML HC STATISTIC IV PUSH SINGLE INITIAL SUBSTANCE [address] [place] [address] [place] [address] Phone: Fax: Referral ID Status Reason Start Date Expiration Date Visits Requ ested Visits Authorized [id number] Closed 11/15/2018 11/15/2019 1 1 MINER Reason for Visit CV Testing (Routine) - [...] PERICARDIOCENTESIS HC ECHO MYOCARD BX MARIBEL Torres [address] C INJECTION, PERFLUTREN LIPI D MICROSPHERES, PER ML HC STATISTIC IV PUSH SINGLE INITIAL SUBSTANCE [address] [place] [address] [place] [address] Phone: Fax: Referral ID Status Reason Start Date Expiration Date Visits Requ ested Visits Authorized [id number] Closed 11/15/2018 11/15/2019 1 1 Encounter Details Date Type Department Care Team Description 11/18/2018 [facility] Tammyame Jaeger smal atrial fibrillation (H); Encounter [facility] MARIBEL Torres Cardiomyopathy, unspecified type (H); Heart Care [address] Ischemic cardiomyopathy [address] [place] [address] [place], [place] [phone] [address] (Work) [phone] Social History Tobacco Use Types Packs/Day Years [...] Coronary artery disease minutes as needed involving [place] coronary for chest pain artery of white [place] heart without angina pectoris ondansetron (ZOFRAN ODT) [...] [address] [place] [id number] Trudi Grayson APRN GLOBAL CLIMATE CHANGE RESEARCHER [address] [id number] 11/16/2022 Ancillary Procedure Cardiology Timothy Smith MD [address] [place] [address] (Wo rk) documented as of this encounter Procedures Procedure Name Priority Date/Time Associated Diagnosis Comme nts ECHO COMPLETE Routine 11/18/2018 11:17 AM Paroxysmal atrial Re sults for this LEAD MINER fibrillation (H) procedure are in Cardiomyopathy, the results unspecified type (H) section. Ischemic cardiomyopathy documented in this encounter Results ECHO COMPLETE (11/18/2018 11:17 AM LEAD MINER) Anatomical Region Laterality Modality Echocardiography Specimen (Source) Anatomical Collection Method Collection Time Re ceived Time Location / / Volume Laterality 11/18/2018 10:35 AM LEAD MINER Narrative 11/19/2018 3:59 PM LEAD MINER [id number]^BELEN^TAMMY[facility] [address] [place] [address] Name: RADHA VLILA : 1940 Study Date: 11/18/2018 10:35 AM Age: 78 yrs Gender: Male Patient Location: [facility] Reason For Study: Paroxysmal atrial fibr illation [...] note might be different from the original. [id number]^BELEN^TAMMY^JUSTEN [facility] E[facility] [address] [place] [address] Name: RADHA VILLA : 1940 Study Date: 11/18/2018 10:35 AM Age: 78 yrs Gender: Male Patient Location: [facility] Reason For Study: Paroxysmal atrial fibr illation [...] disease documented in this encounter Care Teams Vp Global Relationship Specialty Start Date End Date Salva Hernandez PA-C PCP - General Physician Filament Coil Winder 07/02/18 06/29/21 [facility] [address] [place] [address] documented as of this encounter
--- OUTSIDE RECORDS SUMMARY | 2022-09-12 09:19 | XMS_ITS | Encounter Summary ---
:1940 Author Organization [place] Address [address] [facility] [place] [address] Care Team Providers Name Role Phone Slava Hernandez PA-C Primary Care Provider Encounter Details Date Type Department Care Team Description 11/18/2018 [facility] Heart Paro xysmal atrial fibrillation (H); [facility] Cardiomyopathy, unspecified type (H); [address] [facility] Ischemi c cardiomyopathy [address] [place] [address] Social History Tobacco Use Types [...] 09/28/2022 Office Visit Cardiology Timothy Smith MD [address] [place] [id number] Trudi Grayson APRN CNP [address] [id number] 11/16/2022 Ancillary Procedure Cardiology Timothy Smith MD [address] [place] [id number] (Wo rk) documented as of this encounter Procedures Procedure Name Priority Date/Time Associated Diagnosis Comme nts BASIC METABOLIC Routine 11/18/2018 10:02 Paroxysmal atrial Res ults for this PANEL AM [facility] fibrillation (H) procedure are in Cardiomyopathy, the results unspecified type (H) section. Ischemic cardiomyopathy documented in this encounter Results (ABNORMAL) Basic metabolic panel (11/18/2018 10:02 AM [facility]) Analysis Performed At Patho logist Time Signature Sodium 144 133 - 144 11/18/2018 [facility] mmol/L 10:39 AM [facility] Potassium 3.8 3.4 - 5.3 11/18/2018 [facility] mmol/L 10:39 AM [facility] Chloride 105 94 - 109 11/18/2018 [facility] mmol/L 10:39 AM [facility] Carbon Dioxide 33 (H) 20 - 32 11/18/2018 [facility] mmol/L 10:46 AM [facility] Anion Gap 6 3 - 14 11/18/2018 [facility] mmol/L 10:46 AM [facility] Glucose 146 (H) 70 - 99 11/18/2018 [facility] mg/dL 10:46 AM [facility] Urea Nitrogen 30 7 - 30 11/18/2018 [facility] mg/dL 10:46 AM [facility] Creatinine 1.35 (H) 0.66 - 11/18/2018 [facility] 1.25 mg/dL 10:46 AM [facility] GFR Estimate 49 (L) >60 11/18/2018 [place] mL/min/{1. 10:46 AM [facility] 73_m2} HOSPITAL Comment: Non GFR Calc Starting 09/17/2018, serum creatinine ba sed estimated GFR (eGFR) will be calculated using the Chronic Kidney Dise [facility] Epidemiology Collaboration (CKD-EPI) equation. GFR Estimate If 57 (L) >60 mL/min/{1.73_m2} 11/18/2018 10:46 AM [facility] Comment: GFR Calc Starting 09/17/2018, serum creatinine ba sed estimated GFR (eGFR) will be calculated using the Chronic Kidney Dise [facility] Epidemiology Collaboration (CKD-EPI) equation. Calcium 9.2 8.5 - 10.1 mg/dL 11/18/2018 10:46 AM [facility] Specimen Anatomical Collection Method Collection Time Receive d Time (Source) Location / / Volume Laterality Blood specimen 11/18/2018 10: 9 (specimen) AM INFRASTRUCTURE PROJECT MANAGER 10:07 AM INFRASTRUCTURE PROJECT MANAGER Tammy Montenegro PA-C LAB - BLOOD ORDERABLES Performing Organization Address City/State/ZIP Code Phon e Number [place] [address] [place], [place] [address] [facility] [address] [place], [place] [address] [place] [address] documented in this encounter Visit Diagnoses Diagnosis Paroxysmal atrial fibrillation (H) Atrial fibrillation Cardiomyopathy, unspecified type (H) Ischemic cardiomyopathy Other specified forms of chronic ischemi c heart disease documented in this encounter Care Teams Professional Development Instructor Relationship Specialty Start Date End Date Slava Hernandez PA-C PCP - General Physician Chiropractor Sole Practitioner 07/02/18 06/29/21 [facility] [address] [place] [address] documented as of this encounter
--- OUTSIDE RECORDS SUMMARY | 2022-09-12 09:19 | XMS_ITS | Encounter Summary ---
:1940 Author Organization [place] Address [address] [facility] [place] [address] Care Team Providers Name Role Phone Slava Hernandez PA-C Primary Care Provider Reason for Visit Reason Onset Date Comments Clinic Care Coordination - Initial 11/26/2018 [facility] OV Encounter Details Date Type Department Care Team Description 11/26/2018 Telephone [facility] Heart Lacy Washington C linic Care Coordination Clinic [place] RN - Initial (change OV) [address] [facility] [address] [place] [address] Social History Tobacco Use Types [...] mix up and pt will come to [place] on at 1050 and seeMaureen. Pt had BMP on 11/25. . Jing ATION OFFICER Telephone Encounter - Lacy Washington RN - 11/26/2018 8:19 AM CST LM with pt to have pt call back to discuss his OV scheduled for tomorrow and that it is not scheduled with enough time. MESHAelsonRN ATION OFFICER documented in this encounter Plan of Treatment Upcoming Encounters Date Type Specialty Care Team Description 09/28/2022 Lab Lab 09/28/2022 Office Visit Cardiology Timothy Smith MD [address] [place] [phone] Trudi Grayson APRN DIRECTOR BUSINESS MANAGEMENT [address] 147975 11/16/2022 Ancillary Procedure Cardiology Timothy Smith MD [address] [place] [id number] (Wo rk) documented as of this encounter Visit Diagnoses Not on filedocumented in this encounter Care Teams Quilter Fixer Relationship Specialty Start Date End Date Slava Hernandez PA-C PCP - General Physician Military Technology Specialist 07/02/18 06/29/21 [facility] [address] [place] [address] documented as of this encounter
--- OUTSIDE RECORDS SUMMARY | 2022-09-12 09:19 | XMS_ITS | Encounter Summary ---
:1940 Author Organization [place] Address [address] [place] [address] Care Team Providers Name Role Phone Slava Hernandez PA-C Primary Care Provider Reason for Referral CV Testing (Routine) - Closed Specialty Diagnoses / Procedures Referred By Contact Refer red To Contact Diagnoses Cardiac pacemaker in situ [facility] Cv Cardiac Services Procedures Cardiac Device Check - Remote [address] [facility] [address] [place] [phone] Referral ID Status Reason Start Date Expiration Date Visits Requ ested Visits Authorized [id number] Closed 01/23/2019 01/23/2020 1 1 Encounter Details Date Type Department Care Team Description 01/23/2019 Orders Only [facility] Kitty Myers, Cardi ac pacemaker in [facility] RN situ (Ria ch Dx) Heart Care [address] [facility] [address] [place] [address] [...] 09/28/2022 Office Visit Cardiology Timothy Smith MD [address] [facility] [address] [place] [phone] Trudi Grayson APRN UNDERCAR SPECIALIST [address] 182935 11/16/2022 Ancillary Procedure Cardiology Timothy Smith MD [address] [place] [id number] (Wo rk) documented as of this encounter Results INTERROGATION DEVICE EVAL REMOTE PACER UP TO 90 DAYS (06/25/2019 8:54 AM CDT) Component Value Ref Test Analysis Performed Pathologis t Range Method Time At Signature Date Time [id number] [employer] Interrogation Session Implantable [employer] Pulse Generator Gear And Spline Grinder Implantable L121 ESSENTIO EL [employer] Pulse Generator Model Implantable [id number] [employer] Pulse Generator Serial Number Type Remote [employer] Interrogation Session Clinic Name [facility] [employer] Implantable Pacemaker [employer] Pulse Generator Type Implantable [id number] [employer] Pulse Generator Implant Date Implantable Lead [facility] RAUL Gear And Spline Grinder Implantable Lead 2088TC Tendril MEDTRONI C Model STS Implantable Lead [id number] [employer] Serial Number Implantable Lead [id number] [employer] Implant Date Implantable Lead Bipolar Lead [employer] Polarity Type Implantable Lead UNKNOWN [employer] Location Detail 1 Implantable Lead Right Atrium [employer] Location Implantable Lead [facility] [employer] RAUL Gear And Spline Grinder Implantable Lead 2088TC Tendril MEDTRONI C Model STS Implantable Lead [id number] [employer] Serial Number Implantable Lead [id number] [employer] Implant Date Implantable Lead Bipolar Lead [...] [employer] Pacing Threshold Pulse Width Battery Date [id number] [employer] Time of Measurements Battery Status Beginning of [employer] Service Battery 108 mo [employer] Remaining Longevity Battery 100 % [employer] Remaining Percentage Brandon Statistic [id number] [employer] Date Time Start Brandon Statistic [id number] [employer] Date Time End Brandon Statistic 0 % [employer] RA Percent Paced Brandon Statistic 62 % [employer] RV Percent Paced Atrial Tachy [id number] [employer] Statistic Date Time Start Atrial Tachy [id number] [employer] Statistic Date Time End Atrial Tachy 100 % [employer] Statistic AT/AF [place] Percent Episode 5 [employer] Statistic Recent Count [...] [place] [employer] Statistic Vendor Type Category Episode [id number] [employer] Statistic Recent Date Time Start Episode [id number] [employer] Statistic Recent Date Time End Episode [id number] [employer] Statistic Recent Date Time Start Episode [id number] [employer] Statistic Recent Date Time End Episode [id number] [employer] Statistic Recent Date Time Start Episode [id number] [employer] Statistic Recent Date Time End Episode [id number] [employer] Statistic Recent Date Time Start Episode [id number] [employer] Statistic Recent Date Time End Episode APM-92 [employer] Identifier Episode Type Periodic EGM [employer] Category Episode Date [id number] [employer] Time Episode [id number] [employer] Identifier Episode Type Other [employer] Category Episode Date [id number] [employer] Time Episode ATR-6510 [employer] Identifier Episode Type AT/AF [employer] Category Episode Date [id number] [employer] Time Episode V-1530 [employer] Identifier Episode Type [place] [employer] Category Episode Date [id number] [employer]IC Time Episode Duration 15 s [employer]IC Episode V-1529 [employer] Identifier Episode Type VT [employer] Category Episode Date [id number] [employer] Time Episode Duration 14 s [employer]IC Episode V-1528 [employer] Identifier Episode Type [place] [employer] Category Episode Date [id number] [employer] Time Episode Duration 15 s MED[employer]IC Episode V-1527 [employer] Identifier Episode Type VT [employer] Category Episode Date [id number] [employer] Time Episode Duration 14 s MED[employer]IC Episode V-1526 [employer] Identifier Episode Type VT [employer] Category Episode Date [id number] [employer] Time Episode Duration 14 s MED[employer]IC Episode V-1525 [employer] Identifier Episode Type VT [employer]IC Category Episode Date [id number] [employer] Time Episode Duration 15 s MEDTRONIC Episode V-1524 [employer] Identifier Episode Type VT [employer]IC Category Episode Date [id number] [employer] Time Episode Duration 40 s MEDTRONIC Episode V-1523 [employer]IC Identifier Episode Type VT [employer] Category Episode Date [id number] [employer] Time Episode Duration 16 s MEDTRONIC Episode V-1522 [employer]IC Identifier Episode Type VT [employer]IC Category Episode Date [id number] [employer] Time Episode Duration 15 s MED[employer]IC Episode V-1521 [employer] Identifier Episode Type [place] [employer] Category Episode Date [id number] [employer] Time Episode Duration 14 s [employer]IC Episode ATR-6509 [employer] Identifier Episode Type AT/AF [employer] Category Episode Date [id number] [employer] Time Episode Duration 1,020,750 s [employer] Episode ATR-6508 [employer] Identifier Episode Type AT/AF [employer] Category Episode Date [id number] [employer] Time Episode Duration 2,246,835 s [employer] Episode ATR-6507 [employer] Identifier Episode Type AT/AF [employer] Category Episode Date [id number] [employer] Time Episode Duration 30 s [employer] Anatomical Region Laterality Modality Other Specimen (Source) Anatomical Collection Method Collection Time Re ceived Time Location / / Volume Laterality 06/25/2019 5:40 AM CDT Narrative 07/01/2019 8:21 AM CDT [employer] L121 Erwino HAI (D) Remote PPM Device CheckAP: 0%ENGINEER BOOSTER AND EXHAUSTER: 62%Mode: DDDRPresenting Rhythm: Afib wit h ENGINEER BOOSTER AND EXHAUSTER & VSHeart Rate: adequate heart rates per [...] situ documented in this encounter Care Teams Professional Wrestler Relationship Specialty Start Date End Date Slava Hernandez PA-C PCP - General Physician Critical Care Clinical Nurse Specialist 07/02/18 06/29/[address] [address] documented as of this encounter
--- OUTSIDE RECORDS SUMMARY | 2022-09-12 09:19 | XMS_ITS | Encounter Summary ---
:1940 Author Organization [place] Address [facility] [place] [address] Care Team Providers Name Role Phone Slava Hernandez PA-C Primary Care Provider Reason for Visit Reason Onset Date Comments Refill Request 01/10/2019 torsemide Encounter Details Date Type Department Care Team Description 01/10/2019 Refill [facility] Heart Temitope Tamayo, Refill Request Clinic [facility] (torsemide) [address] [facility] [address] [place] [phone] Social History Tobacco Use Types Packs/Day Years [...] months versus [address] script [address] [facility] per request. SIENNA Okeefe documented in this encounter Plan of Treatment Upcoming Encounters Date Type Specialty Care Team Description 09/28/2022 Lab Lab 09/28/2022 Office Visit Cardiology Timothy Smith MD [address] [facility] [address] [place] [phone] Trudi Grayson APRN CLINICAL SCIENCES PROFESSOR [address] 000165 11/16/2022 Ancillary Procedure Cardiology Timothy Smith MD [address] [place] [address] (Wo rk) documented as of this encounter Visit Diagnoses Diagnosis Localized edema Edema documented in this encounter Care Teams Lithographers Printer Relationship Specialty Start Date End Date Slava Hernandez PA-C PCP - General Physician Wastewater Treatment Plant Supervisor 07/02/18 06/29/21 [facility] [address] [place] [address] documented as of this encounter
--- OUTSIDE RECORDS SUMMARY | 2022-09-12 09:19 | XMS_ITS | Encounter Summary ---
:1940 Author Organization [place] Address [facility] [address] Care Team Providers Name Role Phone Slava Hernandez PA-C Primary Care Provider Encounter Details Date Type Department Care Team Description 11/25/2018 Orders Only [facility] Heart ACS (acute coronary Clinic [place] syndrome) (H) [address] [facility] [address] [place] [address] Social History Tobacco Use [...] [address] [place] [id number] Trudi Grayson APRN POLISHER AND BUFFER [address] [place] 6[address] 11/16/2022 Ancillary Procedure Cardiology Timothy Smith MD [address] [place] [address] (Wo rk) documented as of this encounter Procedures Procedure Name Priority Date/Time Associated Diagnosis Comme nts BASIC METABOLIC Routine 11/25/2018 10:56 AM ACS (acute coronar y Results for this PANEL UTILITIES SERVICE INVESTIGATOR syndrome) (H) procedure are in the results section. documented in this encounter Results (ABNORMAL) Basic metabolic panel (11/25/2018 10:56 AM [facility]) Analysis Performed At Patho logist Time Signature Sodium 142 133 - 144 11/25/2018 [facility] mmol/L 11:18 AM [facility] Potassium 4.3 3.4 - 5.3 11/25/2018 [facility] mmol/L 11:18 AM [facility] Chloride 106 94 - 109 11/25/2018 [facility] mmol/L 11:18 AM [facility] Carbon Dioxide 33 (H) 20 - 32 11/25/2018 [facility] mmol/L 11:24 AM [facility] Anion Gap 3 3 - 14 11/25/2018 [facility] mmol/L 11:24 AM [facility] Glucose 131 (H) 70 - 99 11/25/2018 [facility] mg/dL 11:24 AM [facility] Urea Nitrogen 32 (H) 7 - 30 11/25/2018 [facility] mg/dL 11:24 AM [facility] Creatinine 1.43 (H) 0.66 - 11/25/2018 [facility] 1.25 mg/dL 11:24 AM [facility] GFR Estimate 46 (L) >60 11/25/2018 [place] mL/min/{1. 11:24 AM [facility] 73_m2} [facility] Comment: Non GFR Calc Starting 09/17/2018, serum creatinine ba sed estimated GFR (eGFR) will be calculated using the Chronic Kidney Dise [facility] Epidemiology Collaboration (CKD-EPI) equation. GFR Estimate If 53 (L) >60 mL/min/{1.73_m2} 11/25/2018 11:[address] [facility] Comment: GFR Calc Starting 09/17/2018, serum creatinine ba sed estimated GFR (eGFR) will be calculated using the Chronic Kidney Dise [facility] Epidemiology Collaboration (CKD-EPI) equation. Calcium 9.2 8.5 - 10.1 mg/dL 11/25/2018 11:24 AM [facility] Specimen Anatomical Collection Method Collection Time Receive d Time (Source) Location / / Volume Laterality Blood specimen 11/25/2018 10:56 9 (specimen) AM UTILITIES SERVICE INVESTIGATOR 10:59 AM UTILITIES SERVICE INVESTIGATOR Tammy Montenegro PA-C LAB - BLOOD ORDERABLES Performing Organization Address City/State/ZIP Code Phon e Number M [facility] [address] [place], [place] [address] [facility] [address] [place], [place] [address] [place] [address] documented in this encounter Visit Diagnoses Diagnosis ACS (acute coronary syndrome) (H) Intermediate coronary syndrome documented in this encounter Care Teams .Net Developer Relationship Specialty Start Date End Date Slava Hernandez PA-C PCP - General Physician Commercial Credit Analyst 07/02/18 06/29/[address] [address] documented as of this encounter
--- OUTSIDE RECORDS SUMMARY | 2022-09-12 09:19 | XMS_ITS | Encounter Summary ---
:1940 Author Organization [place] Address [address] [facility] [place] [address] Care Team Providers Name Role Phone Slava Hernandez PA-C Primary Care Provider Encounter Details Date Type Department Care Team Description 11/20/2018 Documentation Only [facility] Tammy Montenegro ACS (acute coronary Heart Clinic Patt Torres PA-C syndrome) (H) [address] (Ria jing Dx) [facility] [address] [place] [phone] Social History Tobacco Use Types Packs/Day [...] add BMP to OV with Eldabrayan Caldwell CIATE FINANCIAL PLANNER Temitope Tamayo RN - 11/20/2018 2:49 PM [...] BMP to OV with Elda--Orders placed in [facility] [employer] for BMP and scheduling to call patient on 11/25to set up labs. SIENNA Okeefe CIATE FINANCIAL PLANNER documented in this encounter Plan of Treatment Upcoming Encounters Date Type Specialty Care Team Description 09/28/2022 Lab Lab 09/28/2022 Office Visit Cardiology Timothy Smith MD [address] [place] [phone] Trudi Grayson APRN PLAY LEADER [address] [id number] 11/16/2022 Ancillary Procedure Cardiology Timothy Smith MD [address] [place] [id number] (Wo rk) documented as of this encounter Results (ABNORMAL) Basic metabolic panel (11/25/2018 10:56 AM [facility]) Analysis Performed At Path logist Time Signature Sodium 142 133 - 144 11/25/2018 [facility] mmol/L 11:18 AM [facility] Potassium 4.3 3.4 - 5.3 11/25/2018 [facility] mmol/L 11:18 AM [facility] Chloride 106 94 - 109 11/25/2018 [facility] mmol/L 11:18 AM [facility] Carbon Dioxide 33 (H) 20 - 32 11/25/2018 [place] mmol/L 11:24 AM [facility] Anion Gap 3 3 - 14 11/25/2018 [facility] mmol/L 11:24 AM [facility] Glucose 131 (H) 70 - 99 11/25/2018 [place] mg/dL 11:24 AM [facility] Urea Nitrogen 32 (H) 7 - 30 11/25/2018 [place] mg/dL 11:24 AM [facility] Creatinine 1.43 (H) 0.66 - 11/25/2018 [facility] 1.25 mg/dL 11:24 AM [facility] GFR Estimate 46 (L) >60 11/25/2018 [place] mL/min/{1. 11:24 AM [facility] 73_m2} [facility] Comment: Non GFR Calc Starting 09/17/2018, serum creatinine ba sed estimated GFR (eGFR) will be calculated using the Chronic Kidney Dise [facility] Epidemiology Collaboration (CKD-EPI) equation. GFR Estimate If 53 (L) >60 mL/min/{1.73_m2} 11/25/2018 11:24 AM [facility] Comment: GFR Calc Starting 09/17/2018, serum creatinine ba sed estimated GFR (eGFR) will be calculated using the Chronic Kidney Dise [facility] Epidemiology Collaboration (CKD-EPI) equation. Calcium 9.2 8.5 - 10.1 mg/dL 11/25/2018 11:24 AM ASSOCIATE FINANCIAL PLANNER [facility] Specimen Anatomical Collection Method Collection Time Receive d Time (Source) Location / / Volume Laterality Blood specimen 11/25/2018 10:56 9 (specimen) AM ASSOCIATE FINANCIAL PLANNER 10:59 AM ASSOCIATE FINANCIAL PLANNER Tammy Montenegro PA-C LAB - BLOOD ORDERABLES Performing Organization Address City/State/ZIP Code Phon e Number [place] [address] [address] [place] [address] [place] [address] [phone] documented in this encounter Visit Diagnoses Diagnosis ACS (acute coronary syndrome) (H) - Prim arnie Intermediate coronary syndrome documented in this encounter Care Teams Circus Trainer Relationship Specialty Start Date End Date Slava Hernandez PA-C PCP - General Physician Senior Cost Accountant 07/02/18 06/29/21 [facility] [id number] [place] [address] documented as of this encounter
--- OUTSIDE RECORDS SUMMARY | 2022-09-12 09:19 | XMS_ITS | Encounter Summary ---
:1940 Author Organization [place] Address [facility] [place] [place] [address] Care Team Providers Name Role Phone Slava Hernandez PA-C Primary Care Provider Encounter Details Date Type Department Care Team Description 12/12/2018 [facility] [address] [place] [address] Social History Tobacco Use [...] [address] [place] [id number] Trudi Grayson APRN EMPLOYMENT PROGRAM REPRESENTATIVE [address] [id number] 11/16/2022 Ancillary Procedure Cardiology Timothy Smith MD [address] [place] [id number] (Wo rk) documented as of this encounter Procedures Procedure Name Priority Date/Time Associated Diagnosis Comme nts BASIC METABOLIC Routine 12/12/2018 9:12 AM Ischemic cardiomyop athy Results for this PANEL CDT procedure are i n the results section. documented in this encounter Results (ABNORMAL) Basic metabolic panel (12/12/2018 9:12 AM CDT) [facility] Time Signature Sodium 143 133 - 144 12/12/2018 [facility] mmol/L 9:51 AM [facility] Potassium 4.2 3.4 - 5.3 12/12/2018 [facility] mmol/L 9:51 AM [facility] Chloride 106 94 - 109 12/12/2018 [facility] mmol/L 9:51 AM [facility] Carbon Dioxide 31 20 - 32 12/12/2018 [facility] mmol/L 9:56 AM [facility] Anion Gap 6 3 - 14 12/12/2018 [place] mmol/L 9:56 AM [facility] Glucose 101 (H) 70 - 99 12/12/2018 [facility] mg/dL 9:56 AM [facility] Urea Nitrogen 55 (H) 7 - 30 12/12/2018 [facility] mg/dL 9:56 AM [facility] Creatinine 2.20 (H) 0.66 - 12/12/2018 [facility] 1.25 mg/dL 9:56 AM [facility] GFR Estimate 27 (L) >60 12/12/2018 [place] mL/min/{1. 9:56 AM [facility] 73_m2} [facility] Comment: Non GFR Calc Starting 09/17/2018, serum creatinine ba sed estimated GFR (eGFR) will be calculated using the Chronic Kidney Dise [facility] Epidemiology Collaboration (CKD-EPI) equation. GFR Estimate If 32 (L) >60 mL/min/{1.73_m2} 12/12/2018 9: 56 AM [facility] Comment: GFR Calc Starting 09/17/2018, serum creatinine ba sed estimated GFR (eGFR) will be calculated using the Chronic Kidney Dise [facility] Epidemiology Collaboration (CKD-EPI) equation. Calcium 8.8 8.5 - 10.1 mg/dL 12/12/2018 9:56 AM [facility] Specimen Anatomical Collection Method Collection Time Receive d Time (Source) Location / / Volume Laterality Blood specimen 12/12/2018 9:12 AM 019 9:14 (specimen) CDT AM CDT Elda Johnson APRN EMPLOYMENT PROGRAM REPRESENTATIVE LAB - BLOOD ORDERABL ES Performing Organization Address City/State/ZIP Code Phon e Number M [facility] [address] [place], [place] [address] [facility] [address] [place], [place] [address] [place] [address] documented in this encounter Visit Diagnoses Diagnosis Ischemic cardiomyopathy Other specified forms of chronic ischemi c heart disease documented in this encounter Care Teams Journalism Instructor Relationship Specialty Start Date End Date Slava Hernandez PA-C PCP - General Physician Joint Yarner 07/02/18 06/29/21 [facility] [id number] [place] [address] documented as of this encounter
--- OUTSIDE RECORDS SUMMARY | 2022-09-12 09:19 | XMS_ITS | Encounter Summary ---
:1940 Author Organization [place] Address [facility] [place] [address] Care Team Providers Name Role Phone Slava [...] [address] [place] [phone] Trudi Grayson APRN CHIEF METER READER [address] [id number] 11/16/2022 Ancillary Procedure Cardiology Timothy Smith MD [address] [place] [id number] (Wo rk) documented as of this encounter Visit Diagnoses Not on filedocumented in this encounter Care Teams Restaurant Line Server Relationship Specialty Start Date End Date Slava Hernandez PA-C PCP - General Physician Emergency Vehicle Technician 07/02/18 06/29/21 [facility] [address] [place] [address] documented as of this encounter
--- OUTSIDE RECORDS SUMMARY | 2022-09-12 09:19 | XMS_ITS | Encounter Summary ---
:1940 Author Organization [place] Address [address] [facility] [place] [address] Care Team Providers Name Role Phone Slava Hernandez PA-C Primary Care Provider Encounter Details Date Type Department Care Team Description 01/23/2019 Documentation Only [facility] Elda Johnson [facility] Patt Montoya APRN CHURN OPERATOR [address] [facility] [address] [facility] [address] [place] [address] [place] [id number] [phone] Social History Tobacco Use Types Packs/Day Years [...] [address] [place] [address] Trudi Grayson APRN CHURN OPERATOR [address] [address] 11/16/2022 Ancillary Procedure Cardiology Timothy Smith MD [address] [place] [phone] (Wo rk) documented as of this encounter Visit Diagnoses Not on filedocumented in this encounter Care Teams Web Site Manager Relationship Specialty Start Date End Date Slava Hernandez PA-C PCP - General Physician Clerical Associate 07/02/18 06/29/21 [facility] [address] [place] [address] documented as of this encounter
--- OUTSIDE RECORDS SUMMARY | 2022-09-12 09:19 | XMS_ITS | Encounter Summary ---
:1940 Author Organization [place] Address [address] [facility] [place] [address] Care Team Providers Name Role Phone Slava Hernandez PA-C Primary Care Provider Encounter Details Date Type Department Care Team Description 11/18/2018 Documentation Only [facility] Tammy Montenegro [facility] Shilpi Torres PA-C [address] [facility] [address] [facility] [address] [place] [phone] [place] [id number] (Wo rk) Social History Tobacco Use Types [...] but reschedule to if it's snowing tomorrow. L RESERVATION AGENT Temitope Tamayo RN - 11/18/2018 1:41 PM CST Message left for patient to review lab work and recommendations per HANK Jacobo. Awaiting return call. SIENNA Okeefe L RESERVATION AGENT Temitope Tamayo RN - 11/18/2018 1:41 PM [...] to follow up next week. Patient requesting [facility]. Appointment scheduled for 11/27 with Elda Johnson. Instructed patient to call clinic if he had any questions or concerns. Patient provided verbal understanding of above. SIENNA Okeefe L RESERVATION AGENT documented in this encounter Plan of Treatment Upcoming Encounters Date Type Specialty Care Team Description 09/28/2022 Lab Lab 09/28/2022 Office Visit Cardiology Timothy Smith MD [address] [place] [phone] Trudi Grayson APRN PHYSICAL THERAPIST CLINIC DIRECTOR [address] [id number] 11/16/2022 Ancillary Procedure Cardiology Timothy Smith MD [address] [place] [phone] (Wo rk) documented as of this encounter Visit Diagnoses Not on filedocumented in this encounter Care Teams Solid Waste Collector Relationship Specialty Start Date End Date Ghere, Robbin D, PA-C PCP - General Physician Agricultural Chemicals Inspector 07/02/18 06/29/21 [facility] [address] [place] [address] documented as of this encounter
--- OUTSIDE RECORDS SUMMARY | 2022-09-12 09:19 | XMS_ITS | Encounter Summary ---
:1940 Author Organization [place] Address [address] [facility] [place] [address] Care Team Providers Name Role Phone Slava Hernandez PA-C Primary Care Provider Reason for Referral (Routine) - Closed Specialty Diagnoses / Procedures Referred By Contact Refer red To Contact Diagnoses Persistent atrial fibrillation (H) Chronic systolic congestive heart failure (H) Elda Johnson APRN HEEL SANDER [address] [place] [address] Referral ID Status Reason Start Date Expiration Date Visits Requ ested Visits Authorized [id number] Closed 01/22/2019 01/22/2020 1 1 Specialty Diagnoses / Procedures Referred By Contact Refer red To Contact Elad Johnson APRN CNP [address] [place] [address] Referral ID Status Reason Start Date Expiration Date Visits Requ ested Visits Authorized Reason for Visit Reason Comments Follow Up 2 week followup - Closed Specialty Diagnoses / Procedures Referred By Contact Refer red To Contact Diagnoses Persistent atrial fibrillation (H) Timothy Smith MD [address] [place] [address] Referral ID Status Reason Start Date Expiration Date Visits Requ ested Visits Authorized [id number] Closed 01/01/2019 01/01/2020 1 1 Encounter Details Date Type Department Care Team Description 01/22/2019 Office Visit [facility] Timothy Smith MD [address] [place] [address] Chronic systolic congestive heart failur e (H) (Primary Dx); Heart Clinic Elda Johnson APRN HEEL SANDER [address] [place] [address] Persistent atrial fibrillation (H) [address] [place] [address] Social History Tobacco Use Types [...] this encounter Progress Notes Elda Johnson APRN HEEL SANDER - 01/22/2019 9:30 AM CDT HPI: Haris [...] (diabetes, CAD, age++) 3.?Sinus node dysfunction??s/p dual-chamber [employer] pacemaker 01/2016. 4.?Coronary disease??status post 4v CABG 1986. Thought to be VG -OM, VG-RCA, VG-LAD and VG-D at that time. Angiogram 01/2016 showed patent VGs 5.?Cardiomyopathy, 6. 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 Elda Johnson APRN, HEEL SANDER This note was completed in part using tabulate voice recognition software. Although reviewed after completion, some word and grammatical errors may occur. Orders Placed This Encounter Procedures ??? Basic metabolic panel ??? [facility] ??? Follow-Up with Oil Separator ??? EKG 12-lead complete w/read - Clinics [...] INR 1.00 02/04/2016 [facility] Timothy Smith MD [address] [place] [id number] documented in this encounter Plan of Treatment Upcoming Encounters Date Type Specialty Care Team Description 09/28/2022 Lab Lab 09/28/2022 Office Visit Cardiology Timothy Smith MD [address] [place] [phone] Trudi Grayson APRN HEEL SANDER [address] [id number] 11/16/2022 Ancillary Procedure Cardiology Timothy Smith MD [address] [place] [phone] (Wo rk) Scheduled Referrals Name Type Priority Associated Diagnoses Order S [facility] Clinic Referral Routine Chronic systolic Expected: congestive heart 01/29/2019 failure (H) (Approximate), Expires: 01/23/2020 Follow-Up with Referral Routine Persistent atrial Expected : Oil Separator fibrillation (H) 04/23/2019 Chronic systolic (Approximat e), [...] (02/03/2019 11:17 AM CDT) Analysis Performed At Path logis Time Signature Sodium 140 133 - 144 02/03/2019 [facility] mmol/L 12:07 PM [facility] Potassium 4.1 3.4 - 5.3 02/03/2019 [facility] mmol/L 12:07 PM [facility] Chloride 104 94 - 109 02/03/2019 [facility] mmol/L 12:07 PM [facility] Carbon Dioxide 30 20 - 32 02/03/2019 [facility] mmol/L 12:15 PM [facility] Anion Gap 6 3 - 14 02/03/2019 [facility] mmol/L 12:15 PM [facility] Glucose 95 70 - 99 02/03/2019 [facility] mg/dL 12:15 PM [facility] Urea Nitrogen 39 (H) 7 - 30 02/03/2019 [facility] mg/dL 12:15 PM [facility] Creatinine 1.64 (H) 0.66 - 02/03/2019 [facility] 1.25 mg/dL 12:15 PM [facility] GFR Estimate 39 (L) >60 02/03/2019 [facility] mL/min/{1. 12:15 PM [facility] 73_m2} [facility] Comment: Non GFR Calc Starting 09/17/2018, serum creatinine ba sed estimated GFR (eGFR) will be calculated using the Chronic Kidney Dise [facility] Epidemiology Collaboration (CKD-EPI) equation. GFR Estimate If 45 (L) >60 mL/min/{1.73_m2} 02/03/2019 12:15 PM [facility]T [facility]OS[facility] Comment: GFR Calc Starting 09/17/2018, serum creatinine ba sed estimated GFR (eGFR) will be calculated using the Chronic Kidney Dise [facility] Epidemiology Collaboration (CKD-EPI) equation. Calcium 9.6 8.5 - 10.1 mg/dL 02/03/2019 12:15 PM CDT [facility] Specimen Anatomical Collection Method Collection Time Receive d Time (Source) Location / / Volume Laterality Blood specimen 02/03/2019 11:17 9 (specimen) AM CDT 11:22 AM CDT Elda Johnson APRN, CNP LAB - BLOOD ORDERABL ES Performing Organization Address City/State/ZIP Code Phon e Number [place] [address] [address] [place], [place] [address] [place] [address] [address] [place], [place] [address] [place] [address] EKG 12-lead complete w/read - Clinics (performed today) (01/22/2019 3:09 PM CDT) Narrative This result has an attachment that is no t available. Elda Johnson APRN, CNP ECG ORDERABLES documented in this encounter Visit Diagnoses Diagnosis Chronic systolic congestive heart failur e (H) - Primary Chronic systolic heart failure Persistent atrial fibrillation (H) Atrial fibrillation documented in this encounter Care Teams Document Preparer Microfilming Relationship Specialty Start Date End Date Slava Hernandez PA-C PCP - General Physician Fiscal Services Manager 07/02/18 06/29/21 [facility] [address] [place] [address] documented as of this encounter
--- OUTSIDE RECORDS SUMMARY | 2022-09-12 09:19 | XMS_ITS | Encounter Summary ---
:1940 Author Organization [place] Address [facility] [place] [address] Care Team Providers Name Role Phone Slava [...] [address] [place] [phone] Trudi Grayson APRN PAYROLL ACCOUNTING CLERK [address] [phone] 11/16/2022 Ancillary Procedure Cardiology Timothy Smith MD [address] [place] [phone] (Wo rk) documented as of this encounter Visit Diagnoses Not on filedocumented in this encounter Care Teams Inbound Customer Service Agent Relationship Specialty Start Date End Date Slava Hernandez PA-C PCP - General Physician Hand Sewer 07/02/18 06/29/21 [facility] [address] [place] [address] documented as of this encounter
--- OUTSIDE RECORDS SUMMARY | 2022-09-12 09:19 | XMS_ITS | Encounter Summary ---
:1940 Author Organization [place] Address [facility] [place] [address] Care Team Providers Name Role Phone Slava [...] [address] [place] [phone] Trudi Grayson APRN MANAGER HEALTH [address] [phone] 11/16/2022 Ancillary Procedure Cardiology Timothy Smith MD [address] [place] [phone] (Wo rk) documented as of this encounter Visit Diagnoses Not on filedocumented in this encounter Care Teams Law Reporter Relationship Specialty Start Date End Date Slava Hernandez PA-C PCP - General Physician Accountant Auditor 07/02/18 06/29/21 [facility] [address] [place] [address] documented as of this encounter
--- OUTSIDE RECORDS SUMMARY | 2022-09-12 09:19 | XMS_ITS | Encounter Summary ---
:1940 Author Organization [place] Address [address] [place] [address] Care Team Providers Name Role Phone Slava Hernandez PA-C Primary Care Provider Reason for Referral CV Testing - Closed Specialty Diagnoses / Procedures Referred By Contact Refer red To Contact Diagnoses Syncope and collapse Steven Canchola, Procedures Cardiac Device Check - Remote [address] [place] [address] Referral ID Status Reason Start Date Expiration Date Visits Requ ested Visits Authorized [id number] Closed 12/10/2018 12/10/2019 1 1 Reason for Visit CV Testing - Closed Specialty Diagnoses / Procedures Referred By Contact Refer red To Contact Diagnoses Syncope and collapse Steven Canchola, Procedures Cardiac Device Check - Remote [address] [place] [address] Referral ID Status Reason Start Date Expiration Date Visits Requ ested Visits Authorized [id number] Closed 09/01/2018 09/01/2019 1 1 Encounter Details Date Type Department Care Team Description 12/10/2018 [facility] Steven Canchola Sync ope and Procedure [facility] MD Jose collapse [facility] [address] [place] [address] [facility] [address] [place] [address] [place] [phone] (Wo rk) [address] [phone] Social History Tobacco Use Types Packs/Day Years [...] Smith MD [address] [place], [place] [address] Trudi Grayson APRN COMMERCIAL HORTICULTURE INSTRUCTOR [address] [address] 11/16/2022 Ancillary Procedure Cardiology Timothy Smith MD [address] [place] [id number] (Wo rk) documented as of this encounter [...] Range Method Time At Signature Date Time [id number] [employer] Interrogation Session Implantable [employer] Pulse Generator Corporation Lawyer Implantable L121 ESSENTIO EL MEDTRONIC Pulse Generator Model Implantable [id number] [employer]ONIC Pulse Generator Serial Number Type Remote MEDTRONIC Interrogation Session Clinic Name [facility] [employer] Implantable Pacemaker MEDTRONIC Pulse Generator Type Implantable [id number] MED[employer]ONIC Pulse Generator Implant Date Implantable Lead [facility] [employer] Lawyer Implantable Lead 2088TC Tendril MEDTRONI C Model STS Implantable Lead [id number] [employer]ONIC Serial Number Implantable Lead [id number] MEDTRONIC Implant Date Implantable Lead Bipolar Lead [employer] Polarity Type Implantable Lead UNKNOWN [employer] Location Detail 1 Implantable Lead Right Atrium [employer] Location Implantable Lead [facility] [employer] Lawyer Implantable Lead 2088TC Tendril MEDTRONI C Model STS Implantable Lead [id number] [employer] Serial Number Implantable Lead [id number] MEDTRONIC Implant Date Implantable Lead Bipolar Lead [...] MEDTRONIC Pacing Threshold Pulse Width Battery Date [id number] Pocket Change Card[employer]IC Time of Measurements Battery Status Beginning of MEDTR[employer] Service Battery 114 mo [employer] Remaining Longevity Battery 100 % [employer] Remaining Percentage Brandon Statistic [id number] MEDTRONIC Date Time Start Brandon Statistic [id number] MEDTRONIC Date Time End Brandon Statistic 0 % [employer]TR[employer]IC RA Percent Paced Brandon Statistic 60 % [employer]TRONIC RV Percent Paced Atrial Tachy MEDTRONIC Statistic Date Time Start Atrial Tachy MEDTRONIC Statistic Date Time End Atrial Tachy 100 % MEDTRONIC Statistic AT/AF [place] Percent Episode 1 [employer] Statistic Recent Count [...] [place] MEDTRONIC Statistic Vendor Type Category Episode [id number] MEDTRONIC Statistic Recent Date Time Start Episode [id number] [employer]TRONIC Statistic Recent Date Time End Episode [id number] MEDTRONIC Statistic Recent Date Time Start Episode [id number] MEDTRONIC Statistic Recent Date Time End Episode [id number] [employer]TRONIC Statistic Recent Date Time Start Episode [id number] [employer]TR[employer]IC Statistic Recent Date Time End Episode [id number] [employer]TR[employer]IC Statistic Recent Date Time Start Episode [id number] [employer]TRONIC Statistic Recent Date Time End Episode APM-91 MEDTRONIC Identifier Episode Type Periodic EGM MEDTRONIC Category Episode Date [id number] MEDTRONIC Time Episode [id number]-1947 MED[employer]ONIC Identifier Episode Type Other MEDTRONIC Category Episode Date [id number] MEDTRONIC Time Episode V-1456 MEDTRONIC Identifier Episode Type [place] MEDTRONIC Category Episode Date [id number] MEDTRONIC Time Episode Duration 22 s MEDTRONIC Episode V-1455 MEDTRONIC Identifier Episode Type SVT MEDTRONIC Category Episode Vendor SVT MEDTRONIC Type Category Episode Date [id number] MEDTRONIC Time Episode Duration 110 s MEDTRONIC Episode V-1454 MEDTRONIC Identifier Episode Type VT MEDTRONIC Category Episode Date [id number] MEDTRONIC Time Episode Duration 15 s MEDTRONIC Episode V-1453 MEDTRONIC Identifier Episode Type VT MEDTRONIC Category Episode Date [id number] MEDTRONIC Time Episode Duration 21 s MEDTRONIC Episode V-1452 MEDTRONIC Identifier Episode Type VT MEDTRONIC Category Episode Date [id number] MEDTRONIC Time Episode Duration 21 s MEDTRONIC Episode V-1451 MEDTRONIC Identifier Episode Type VT MEDTRONIC Category Episode Date [id number] MEDTRONIC Time Episode Duration 15 s MEDTRONIC Episode V-1450 MEDTRONIC Identifier Episode Type VT MEDTRONIC Category Episode Date [id number] MEDTRONIC Time Episode Duration 17 s MEDTRONIC Episode V-1449 MEDTRONIC Identifier Episode Type VT MEDTRONIC Category Episode Date [id number] MEDTRONIC Time Episode Duration 13 s MEDTRONIC Episode V-1448 MEDTRONIC Identifier Episode Type VT MEDTRONIC Category Episode Date [id number] MEDTRONIC Time Episode Duration 19 s MEDTRONIC Episode ATR-6506 MEDTRONIC Identifier Episode Type AT/AF MEDTRONIC Category Episode Date [id number] MEDTRONIC Time Episode V-1447 MEDTRONIC Identifier Episode Type VT MEDTRONIC Category Episode Date [id number] MEDTRONIC Time Episode Duration 17 s MEDTRONIC Episode V-1446 MEDTRONIC Identifier Episode Type VT MEDTRONIC Category Episode Date [id number] [employer]TR[employer]IC Time Episode Duration 14 s MEDTRONIC Anatomical Region Laterality Modality Other Specimen (Source) Anatomical Collection Method Collection Time Re ceived Time Location / / Volume Laterality 03/18/2019 5:41 AM CDT Narrative 03/19/2019 2:34 PM CDT [employer] L121 Essentio EL (D) Remote PPM Device CheckAP: 0%HOUSING RELOCATION: 60%Mode: DDDRPresenting Rhythm: Chronic Afib and VPHeart [...] plan. Steven Canchola MD CV CARDIAC SERVICES ORDE IRENALES INTERROGATION DEVICE EVAL REMOTE PACER UP TO 90 DAYS (12/10/2018 10:02 AM CDT) Component Value Ref Test Analysis Performed Pathologis t Range Method Time At Signature Date Time [id number] [employer] Interrogation Session Implantable [employer] Pulse Generator Corporation Lawyer Implantable L121 ESSENTIO EL MEDTRONIC Pulse Generator Model Implantable [id number] [employer]IC Pulse Generator Serial Number Type Remote MEDTRONIC Interrogation Session Clinic Name [facility] [employer] Implantable Pacemaker MED[employer]IC Pulse Generator Type Implantable [id number] MEDTRONIC Pulse Generator Implant Date Implantable Lead [facility] [employer] Lawyer Implantable Lead Tendril MEDTRONI C Model STS Implantable Lead [id number] MEDTRONIC Serial Number Implantable Lead [id number] MEDTRONIC Implant Date Implantable Lead Bipolar Lead [employer]IC Polarity Type Implantable Lead UNKNOWN [employer]IC Location Detail 1 Implantable Lead Right Atrium [employer] Location Implantable Lead [facility] [employer] Lawyer Implantable Lead Tendril MEDTRONI C Model STS Implantable Lead [id number] [employer]IC Serial Number Implantable Lead [id number] MEDTRONIC [...] MEDTRONIC Pacing Threshold Pulse Width Battery Date [id number] Pocket Change CardTRONIC Time of Measurements Battery Status Beginning of MEDTRONIC Service Battery 102 mo MEDTRONIC Remaining Longevity Battery 97 % [employer]TR[employer]IC Remaining Percentage Brandon Statistic [id number] [employer]IC Date Time Start Brandon Statistic [id number] MEDTRONIC Date Time End Brandon Statistic 0 % MEDTRONIC RA Percent Paced Brandon Statistic 71 % MEDTRONIC RV Percent Paced Atrial Tachy [id number] MEDTRONIC Statistic Date Time Start Atrial Tachy [id number] MEDTRONIC Statistic Date Time End Atrial Tachy 100 % MEDTRONIC Statistic AT/AF [place] Percent Episode 0 MEDTRONIC Statistic Recent Count [...] [place] MEDTRONIC Statistic Vendor Type Category Episode [id number] MEDTRONIC Statistic Recent Date Time Start Episode [id number] MEDTRONIC Statistic Recent Date Time End Episode [id number] MEDTRONIC Statistic Recent Date Time Start Episode [id number] MEDTRONIC Statistic Recent Date Time End Episode [id number] MEDTRONIC Statistic Recent Date Time Start Episode [id number] MEDTRONIC Statistic Recent Date Time End Episode [id number] MEDTRONIC Statistic Recent Date Time Start Episode [id number] MEDTRONIC Statistic Recent Date Time End Episode APM-90 MEDTRONIC Identifier Episode Type Periodic EGM MEDTRONIC Category Episode Date [id number] MEDTRONIC Time Episode RVAT-1695 MEDTRONIC Identifier Episode Type Other MEDTRONIC Category Episode Date [id number] MEDTRONIC Time Episode V-1440 MEDTRONIC Identifier Episode Type VT MEDTRONIC Category Episode Date [id number] MEDTRONIC Time Episode Duration 12 s MEDTRONIC Episode V-1439 MEDTRONIC Identifier Episode Type VT MEDTRONIC Category Episode Date [id number] MEDTRONIC Time Episode Duration 13 s MEDTRONIC Anatomical Region Laterality Modality Other Specimen (Source) Anatomical Collection Method Collection Time Re ceived Time Location / / Volume Laterality 12/10/2018 5:42 AM CDT Narrative 12/11/2018 12:07 PM CDT Drawn to Scale Scientific Essentio (D) Remote PPM Device CheckAP: 0%\X090A\HOUSING RELOCATION: 71%Mode: ??DDDR ? Presenting Rhythm: AFib with [...] collapse documented in this encounter Care Teams Creative Director Relationship Specialty Start Date End Date Slava Hernandez PA-C PCP - General Physician Yard Goods Salesperson 07/02/18 06/29/21 [facility] [address] [place] [address] documented as of this encounter
--- OUTSIDE RECORDS SUMMARY | 2022-09-12 09:20 | XMS_ITS | Encounter Summary ---
:1940 Author Organization [place] Address [facility] [place] [address] Care Team Providers Name Role Phone Mary Slava Estrella PA-C Primary Care Provider Reason for Visit Reason Comments Pacemaker Check PPM Latitude NXT Encounter Details Date Type Department Care Team Description 08/27/2018 Allied Health/Nurse [facility] Pac emaker Check (PPM Visit [facility] [place] Latitude NXT) [address] [place] [address] [address] [place] [address] Social History Tobacco Use Types Packs/Day Years Used Date Smoking Tobacco: Never Smokeless Tobacco: Never Alcohol Use Standard Drinks/Week Comments No 0 (1 standard drink = 0.6 oz pure alcoho l) Sex Assigned at Date Recorded Not on file documented as of this encounter Progress Notes Sary Riojas - 08/27/2018 4:30 PM CST [employer] Essentio EL L121 (D) Remote PPM Device Check AP: 0% MIXING MACHINE ATTENDANT: 41% Mode: DDDR Presenting Rhythm: Afib with MIXING MACHINE ATTENDANT Heart Rate: histogram shows good rate variation [...] over the phone to pt. Mccoy CVT PPER documented in this encounter Plan of Treatment Upcoming Encounters Date Type Specialty Care Team Description 09/28/2022 Lab Lab 09/28/2022 Office Visit Cardiology Timothy Smith MD [address] [place] [phone] Trudi Grayson, FLACO DATA ENTRY PROCESSOR [address] [place] [address] 11/16/2022 Ancillary Procedure Cardiology Timothy Smith MD [address] [place], [place] [address] (Wo rk) documented as of this encounter Procedures Procedure Name Priority Date/Time Associated Diagnosis Comme [facility] PM DEVICE Routine 08/27/2018 10:09 AM Cardiac pacemaker in INTERROGATE REMOTE, UP SCRAPPER situ TO 90 DAYS, LEAD/LEADLESS HC INTERR DEVICE EVAL Routine 08/27/2018 Cardiac pacemaker i n REMOTE, PM/LDLS PM/ICD, situ UP TO 90 DAYS documented in this encounter Results INTERROGATION DEVICE EVAL REMOTE, PACER/ICD (27399) (08/27/2018) Narrative This result has an attachment that is no t available. Steven Canchola MD PROCEDURES documented in this encounter Visit Diagnoses Diagnosis Cardiac pacemaker in situ - Primary documented in this encounter Care Teams Banking Officer Relationship Specialty Start Date End Date Slava Hernandez PA-C PCP - General Physician Burner Technician 07/02/18 06/29/21 [facility] [address] [place] [address] documented as of this encounter
--- OUTSIDE RECORDS SUMMARY | 2022-09-12 09:20 | XMS_ITS | Encounter Summary ---
:1940 Author Organization [place] Address [facility] [place] [address] Care Team Providers Name Role Phone Slava [...] [address] [place] [id number] Trudi Grayson APRN NANOFABRICATION SPECIALIST [address] [id number] 11/16/2022 Ancillary Procedure Cardiology Timothy Smith MD [address] [place] [id number] (Wo rk) documented as of this encounter Visit Diagnoses Not on filedocumented in this encounter Care Teams Underground Electrician Relationship Specialty Start Date End Date Slava Hernandez PA-C PCP - General Physician Sas Clinical Programmer 07/02/18 06/29/21 [facility] [address] [place] [address] documented as of this encounter
--- OUTSIDE RECORDS SUMMARY | 2022-09-12 09:20 | XMS_ITS | Encounter Summary ---
:1940 Author Organization [place] Address [facility] [place] [address] Care Team Providers Name Role Phone Mary Slava Estrella PA-C Primary Care Provider Encounter Details Date Type Department Care Team Description 09/27/2018 Telephone [facility] Heart Zarina Smith MD [facility] [address] [place] [address] [facility] [address] [place] [address] [phone] Social History Tobacco Use Types Packs/Day Years [...] call ed to let pharmacy know-yvette cummins CLERK documented in this encounter Plan of Treatment Upcoming Encounters Date Type Specialty Care Team Description 09/28/2022 Lab Lab 09/28/2022 Office Visit Cardiology Timothy Smith MD [address] [place] [id number] Trudi Grayson APRN CNP [address] [address] 11/16/2022 Ancillary Procedure Cardiology Timothy Smith MD [address] [place] [id number] (Wo rk) documented as of this encounter Visit Diagnoses Not on filedocumented in this encounter Care Teams Coil Connector Relationship Specialty Start Date End Date Slava Hernandez PA-C PCP - General Physician Bakery Manager 07/02/18 06/29/21 [facility] [address] [place] [address] documented as of this encounter
--- OUTSIDE RECORDS SUMMARY | 2022-09-12 09:20 | XMS_ITS | Encounter Summary ---
:1940 Author Organization [place] Address [address] [facility] [place] [place] [address] Care Team Providers Name Role Phone Slava Hernandez PA-C Primary Care Provider Reason for Referral - Closed Specialty Diagnoses / Procedures Referred By Contact Refer red To Contact Diagnoses Paroxysmal atrial fibrillation (H) Cardiomyopathy, unspecified type (H) Ischemic cardiomyopathy Tammy Glover PA-C [address] [place] [address] Referral ID Status Reason Start Date Expiration Date Visits Requ ested Visits Authorized [id number] Closed 11/15/2018 11/15/2019 1 1 JSF DEVELOPER CV Testing (Routine) - Closed Specialty Diagnoses [...] PERICARDIOCENTESIS HC ECHO MYOCARD BX MARIBEL Torres [address] [employer] [address] INJECTION, PERFLUTREN LIPI D MICROSPHERES, PER ML HC STATISTIC IV PUSH SINGLE INITIAL SUBSTANCE [address] [place] [address] [place] [address] Phone: Fax: Referral ID Status Reason Start Date Expiration Date Visits Requ ested Visits Authorized [id number] Closed 11/15/2018 11/15/2019 1 1 JSF DEVELOPER Reason for Visit Reason Comments Edema Fatigue Encounter Details Date Type Department Care Team Description 11/15/[address] [facility] Tammy Glover Cardio myopathy, unspecified type (H) (Primary Dx); [facility] [place] PA-C Paroxysmal atrial fibrillation (H); [address] [facility] [address] [facility] [address] SSS (sick sinus syndrome) (H); [facility] [address] Ischemic cardiomyopathy; [place] [address] [place] [address] Coronary artery disease involving [place] coronary artery of [place] heart without angina pectoris [phone] (Wo rk) Social History Tobacco Use Types Packs/Day Years Used Date Smoking Tobacco: Never Smokeless Tobacco: Never Alcohol Use Standard Drinks/Week Comments No 0 (1 standard drink = 0.6 oz pure alcoho l) Sex Assigned at Date Recorded Not on file documented as of this encounter Last Filed Vital Signs Vital Sign Reading Time Taken Comments Blood Pressure 123/70 11/15/2018 1:00 PM JAVA JSF DEVELOPER Pulse 80 11/15/2018 1:00 PM JAVA JSF DEVELOPER Temperature - - Respiratory Rate - - Oxygen Saturation - - Inhaled Oxygen Concentration - - Weight 142.9 kg (315 lb) 11/15/2018 1:00 PM JAVA JSF DEVELOPER Height 180.3 cm (5' 11) 11/15/2018 1:00 PM JAVA JSF DEVELOPER Body Mass Index 43.93 11/15/2018 1:00 PM JAVA JSF DEVELOPER documented in this encounter Patient Instructions Patient InstructionsTammy Glvoer PA-C - 11/15/2018 1:10 PM JAVA JSF DEVELOPER 1. Reviewed increased swelling and shortness of [...] with rest. 4. My nurses are Lacy/Pat: [phone] JSF DEVELOPER documented in this encounter Progress Notes Tammy [...] 4. Sinus node dysfunction status post dual-chamber [employer] pacemaker 01/2016. He did not ever [...] EKG today, which I overread, showed intermittent PRODUCTION CONTROL TECHNOLOGIST @ 76 bpm with 2 PVCs of [...] Ischemic cardiomyopathy ??? Coronary artery disease involving [place] coronary artery of [place] heart without angina pectoris CURRENT MEDICATIONS: Current [...] GFRESTBLACK 58 (L) 07/04/2018 [place] 9.3 07/04/2018 JSF DEVELOPER documented in this encounter Plan of Treatment Upcoming Encounters Date Type Specialty Care Team Description 09/28/2022 Lab Lab 09/28/2022 Office Visit Cardiology Timothy Smith MD [address] [place] [address] Trudi Grayson, FLACO OVEN BAKER [address] [address] 11/16/2022 Ancillary Procedure Cardiology Timothy Smith MD [address] [place] [phone] (Wo rk) Scheduled Referrals Name Type Priority [...] Resu lts for this COMPLETE W/READ - JAVA JSF DEVELOPER fibrillation (H) proced ure are in CLINICS the results section. documented in this encounter Results ECHO COMPLETE (11/18/2018 11:17 AM JAVA JSF DEVELOPER) Anatomical Region Laterality Modality Echocardiography Specimen (Source) Anatomical Collection Method Collection Time Re ceived Time Location / / Volume Laterality 11/18/2018 10:35 AM JAVA JSF DEVELOPER Narrative 11/19/2018 3:59 PM [facility] [id number]^BELEN^TAMMY^JUSTEN [facility] Echocardiography Laboratory [address] [place] [address] Name: RADHA VILLA : 1940 Study Date: 11/18/2018 10:35 AM Age: 78 yrs Gender: Male Patient Location: [facility] Reason For Study: Paroxysmal atrial fibr [...] note might be different from the original. [id number]^BELEN^TAMMY^JOSEFABELINO [facility] Echocardiography Laboratory [address] [place] [address] Name: RADHA VILLA : 1940 Study Date: 11/18/2018 10:35 AM Age: 78 yrs Gender: Male Patient Location: [facility] Reason For Study: Paroxysmal atrial fibr [...] (ABNORMAL) Basic metabolic panel (11/18/2018 10:02 AM [facility]) Analysis Performed At Patho logist Time Signature Sodium 144 133 - 144 11/18/2018 [facility] mmol/L 10:39 AM [facility] Potassium 3.8 3.4 - 5.3 11/18/2018 [facility] mmol/L 10:39 AM [facility] Chloride 105 94 - 109 11/18/2018 [facility] mmol/L 10:39 AM [facility] Carbon Dioxide 33 (H) 20 - 32 11/18/2018 [facility] mmol/L 10:46 AM [facility] Anion Gap 6 3 - 14 [facility]/18/[facility]/L 10:46 AM [facility] Glucose 146 (H) 70 - 99 11/18/2018 [facility] mg/dL 10:46 AM [facility] Urea Nitrogen 30 7 - 30 11/18/2018 [facility] mg/dL 10:46 AM [facility] Creatinine 1.35 (H) 0.66 - 11/18/2018 [facility] 1.25 mg/dL 10:46 AM [facility] GFR Estimate 49 (L) >60 11/18/2018 [place] mL/min/{1. 10:46 AM [facility] 73_m2} HOSPITAL Comment: Non GFR Calc Starting 09/17/2018, serum creatinine ba sed estimated GFR (eGFR) will be calculated using the Chronic Kidney Dise [facility] Epidemiology Collaboration (CKD-EPI) equation. GFR Estimate If 57 (L) >60 mL/min/{1.73_m2} 11/18/2018 10:[address] [facility] Comment: GFR Calc Starting 09/17/2018, serum creatinine ba sed estimated GFR (eGFR) will be calculated using the Chronic Kidney Dise [facility] Epidemiology Collaboration (CKD-EPI) equation. Calcium 9.2 8.5 - 10.1 mg/dL 11/18/2018 10:46 AM [facility] Specimen Anatomical Collection Method Collection Time Receive d Time (Source) Location / / Volume Laterality Blood specimen 11/18/2018 10:02 9 (specimen) AM JAVA JSF DEVELOPER 10:07 AM JAVA JSF DEVELOPER Tammy Glover PA-C LAB - BLOOD ORDERABLES Performing Organization Address City/State/ZIP Code Phon e Number M [facility] [address] [place], [place] [address] [facility] [address] [place], [place] [address] [facility] [phone] EKG 12-lead complete w/read - Clinics (performed today) (11/15/2018 4:45 PM JAVA JSF DEVELOPER) Narrative This result has an attachment that is no t available. Tammy Glover PA-C ECG ORDERABLES documented in this encounter Visit Diagnoses Diagnosis Cardiomyopathy, unspecified type (H) - P rimary Paroxysmal atrial fibrillation (H) Atrial fibrillation SSS (sick sinus syndrome) (H) Sinoatrial node dysfunction Ischemic cardiomyopathy Other specified forms of chronic ischemi c heart disease Coronary artery disease involving [place] coronary artery of [place] heart without angina pectoris Paroxysmal atrial fibrillation (H) Atrial fibrillation Cardiomyopathy, unspecified type (H) Ischemic cardiomyopathy Other specified forms of chronic ischemi c heart disease documented in this encounter Care Teams Drilling Superintendent Relationship Specialty Start Date End Date Slava Hernandez PA-C PCP - General Physician Supervisor Refractory Products 07/02/18 06/29/21 [facility] [address] [place] [address] documented as of this encounter
--- OUTSIDE RECORDS SUMMARY | 2022-09-12 09:20 | XMS_ITS | Encounter Summary ---
:1940 Author Organization [place] Address [facility] [place] [address] Care Team Providers Name Role Phone Clinic, [facility] Primary Care Provider [phone] Encounter Details Date Type Department Care Team Description 06/19/2018 Documentation Only [facility] [place] [facility] [place] [address] [facility] [address] [facility] [address] [place] [phone] Social History Tobacco Use Types Packs/Day Years [...] [address] [place] [id number] Trudi Grayson APRN CONTRACT ADMINISTRATION COORDINATOR [address] [place] [id number] 11/16/2022 Ancillary Procedure Cardiology Timothy Smith MD [address] [place] [phone] (Wo rk) documented as of this encounter Procedures Procedure Name Priority Date/Time Associated Diagnosis Comme nts BASIC METABOLIC PANEL Routine 06/13/2018 Result s for this procedure are i n the results section . documented in this encounter Results (ABNORMAL) Basic metabolic panel (06/13/2018) [facility] gist Method Time Signature Sodium 138 [...] Organization Address City/State/ZIP Code Phon e Number [facility] [address] [facility] [place] [address] LABORATORY [address] documented in this encounter Visit Diagnoses Not on filedocumented in this encounter Care Teams Civil Service Worker Relationship Specialty Start Date End Date [facility], [facility] PCP - General 01/16/18 07/01/18 [address] [place] [phone] documented as of this encounter
--- OUTSIDE RECORDS SUMMARY | 2022-09-12 09:20 | XMS_ITS | Encounter Summary ---
:1940 Author Organization [place] Address [facility] [place] [address] Care Team Providers Name Role Phone Slava [...] [address] [place] [phone] Trudi Grayson APRN EVP CHIEF EXPLORATION OFFICER [address] [phone] 11/16/2022 Ancillary Procedure Cardiology Timothy Smith MD [address] [place] [phone] (Wo rk) documented as of this encounter Visit Diagnoses Not on filedocumented in this encounter Care Teams Fishing Reel Assembler Relationship Specialty Start Date End Date Slava Hernandez PA-C PCP - General Physician Base Engineer 07/02/18 06/29/21 [facility] [address] [place] [address] documented as of this encounter
--- OUTSIDE RECORDS SUMMARY | 2022-09-12 09:20 | XMS_ITS | Encounter Summary ---
:1940 Author Organization [place] Address [address] [place] [address] Care Team Providers Name Role Phone Slava Hernandez PA-C Primary Care Provider Reason for Referral - Closed Specialty Diagnoses / Procedures Referred By Contact Refer red To Contact Diagnoses Persistent atrial fibrillation (H) Ankur Smith MD [address] [place] [id number] Referral ID Status Reason Start Date Expiration Date Visits Requ ested Visits Authorized [id number] Closed 07/02/2018 07/02/2019 1 1 Reason for Visit Reason Comments Atrial Fib ekg done - Closed Specialty Diagnoses / Procedures Referred By Contact Refer red To Contact Diagnoses Persistent atrial fibrillation (H) Ankur Smith MD [address] [place] [id number] Referral ID Status Reason Start Date Expiration Date Visits Requ ested Visits Authorized [id number] Closed 07/04/2018 07/04/2019 1 1 Encounter Details Date Type Department Care Team Description 07/02/[address] [facility] Ankur Smith MD Persistent atrial [facility] [place] [address] fibrillation (H) [address] [facility] [address] [place] [address] [place] [phone] Social History Tobacco Use Types Packs/Day Years [...] see me in 10/2018. cc: [place] [address] ANKUR SMITH MD MT: AISHWARYA Name: RADHA VILLA MRN: [id number] Account: [id number] : 1940 Service Date: 07/02/2018 Document: [id number] Ankur Smith MD - 07/02/2018 9:30 AM CDT HPI and Plan: See dictation Orders Placed This Encounter Procedures ??? Follow-Up with Glaze Wiper No orders of the defined types were [...] 3 CC Ankur Smith MD [address] [place] [address] documented in this encounter Plan of Treatment Upcoming Encounters Date Type Specialty Care Team Description 09/28/2022 Lab Lab 09/28/2022 Office Visit Cardiology Ankur Smith MD [address] [place] [address] Trudi Grayson APRN RAILROAD DINING CAR STEWARDESS [address] [place], [place] [address] 11/16/2022 Ancillary Procedure Cardiology Ankur Smith MD [address] [place] [id number] (Wo rk) Scheduled Referrals Name Type Priority Associated Diagnoses Order S chedule Follow-Up with Referral Routine Persistent atrial Expected : Glaze Wiper fibrillation (H) 10/02 (Approximate), Expires: 07/02/2019 documented [...] fibrillation documented in this encounter Care Teams Padding Gluer Relationship Specialty Start Date End Date Slava Hernandez, PAIlanaC PCP - General Physician Drying Machine Receiver 07/02/18 06/29/21 [facility] [id number] [place] [address] documented as of this encounter
--- OUTSIDE RECORDS SUMMARY | 2022-09-12 09:20 | XMS_ITS | Encounter Summary ---
:1940 Author Organization [place] Address [address] [facility] [place] [address] Care Team Providers Name Role Phone Slava Hernandez PA-C Primary Care Provider Reason for Visit Reason Comments Abdominal Pain Encounter Details Date Type Department Care Team Description 07/04/2018 - Emergency [facility] Essie Sanchez Nephr olithiasis 07/05/2018 [facility] Emergency Dep t MD Tamanna [address] [facility] [phone] [address] [facility] [phone] [place], [place] [address] (Wo rk) Social History [...] contain Tylenol (acetaminophen), including Vicodin, Tylenol #3, Spencer, Lortab, and Percocet. You should not take [...] but it was normal and denies diarrhea. [id number], he states that he developed left lower [...] for refractory symptoms. 4. Provided with standard [facility] Discharge instructions for Kidney Stones 5. [...] provider's statements to me. Isac Alfred 07/04/2018 [facility] Essie Sanchez MD 07/07/181951 documented in this encounter Plan of Treatment Upcoming Encounters Date Type Specialty Care Team Description 09/28/2022 Lab Lab 09/28/2022 Office Visit Cardiology Timothy Smith MD [address] [place] [address] Trudi Grayson, FLACO MOTOR VEHICLE TECHNICIAN [address] [place] [address] 11/16/2022 Ancillary Procedure Cardiology Timothy Smith MD [address] [place] [phone] (Wo rk) documented as of this encounter [...] INR 1.25 (H) 0.86 - 1.14 07/05/2018 [place] 12:43 AM T [facility] Specimen Anatomical Collection Method Collection Time Receive d Time (Source) Location / / Volume Laterality 07/04/2018 10:50 07/04/2018 PM CDT 11:22 PM CDT Provider Unknown LAB - BLOOD ORDERABLES Performing Organization Address City/State/ZIP Code Phon e Number [facility] [address] [address] [place], [place] [address] [facility] [address] [place] [address] [facility] [phone] (ABNORMAL) UA with Microscopic reflex to Culture (07/04/2018 10:50 PM CDT) Patholo gist Method Time Signature Color Urine Yellow 07/04/2018 [place] 11:28 PM [facility] Appearance Urine Clear 07/04/2018 [facility] 11:28 PM [facility] Glucose Urine 50 (A) NEG^Negat 07/04/2018 [facility] mike mg/dL 11:28 PM [facility] Bilirubin Urine Negative NEG^Negat 07/04/2018 [facility] mike 11:28 PM [facility] Ketones Urine Negative NEG^Negat 07/04/2018 [facility] mike mg/dL 11:28 PM [facility] Specific [place] 1.017 1.003 - 07/04/2018 [place] Urine 1.035 11:28 PM [facility] Blood Urine Negative NEG^Negat 07/04/2018 [facility] mike 11:28 PM [facility] pH Urine 5.0 5.0 - 7.0 07/04/2018 [place] pH 11:28 PM [facility] Protein Albumin Negative NEG^Negat 07/04/2018 [place] Urine mike mg/dL 11:28 PM [facility] Urobilinogen 0.0 0.0 - 2.0 07/04/2018 [place] mg/dL mg/dL 11:28 PM [facility] Nitrite Urine Negative NEG^Negat 07/04/2018 [facility] mike 11:28 PM [facility] Leukocyte Negative NEG^Negat 07/04/2018 [place] Esterase Urine mike 11:28 PM [facility] Source Midstream 07/04/2018 [place] Urine 11:15 PM [facility] WBC Urine 1 0 - 5 07/04/2018 [facility] /HPF 11:28 PM [facility] RBC Urine 1 0 - 2 07/04/2018 [facility] /HPF 11:28 PM [facility] Squamous <1 0 - 1 07/04/2018 [facility] Epithelial /HPF /HPF 11:28 PM [facility] Mucous Urine Present (A) NEG^Negat 07/04/2018 [facility] mike /LPF 11:28 PM [facility] Specimen (Source) Anatomical Collection Method Collection Time Re ceived Time Location / / Volume Laterality Examination of 07/04/2018 10:50 8 midstream urine PM T 11:15 PM CDT specimen (procedure) Sabino Mckeon MD LAB - URINE ORDERABLES Performing Organization Address City/State/ZIP Code Phon e Number [facility] [address] [place], [place] [address] [place] [address] [address] [place] [address] [facility] [phone] Lipase (07/04/2018 10:50 PM CDT) P athologist Signature Lipase 124 73 - 393 07/04/2018 [facility] U/L 11:35 PM CDT HOSPITAL Specimen Anatomical Collection Method Collection Time Receive d Time (Source) Location / / Volume Laterality Blood specimen 07/04/2018 10:50 8 (specimen) PM CDT 11:14 PM CDT Sabino Mckeon MD LAB - BLOOD ORDERABLES Performing Organization Address City/[facility]/ZIP Code [facility] jessica [place] [address] [address] [place], [place] [address] [place] [address] 7, [facility] [phone] (ABNORMAL) Comprehensive metabolic panel (07/04/2018 10:50 PM CDT) Analysis Performed At Patho logist Time Signature Sodium 139 133 - 144 07/04/2018 [place] mmol/L 11:35 PM [facility] Potassium 4.2 3.4 - 5.3 07/04/2018 [place] mmol/L 11:35 PM [facility] Chloride 102 94 - 109 07/04/2018 [facility] mmol/L 11:35 PM [facility] Carbon Dioxide 30 20 - 32 07/04/2018 [facility] mmol/L 11:35 PM [facility] Anion Gap 7 3 - 14 07/04/2018 [place] mmol/L 11:35 PM [facility] Glucose 240 (H) 70 - 99 07/04/2018 [facility] mg/dL 11:35 PM [facility] Urea Nitrogen 37 (H) 7 - 30 07/04/2018 [place] mg/dL 11:35 PM [facility] Creatinine 1.43 (H) 0.66 - 07/04/2018 [facility] 1.25 mg/dL 11:35 PM [facility] GFR Estimate 48 (L) >60 07/04/2018 [place] mL/min/1.7 11:[address] Comment: Non GFR Calc GFR Estimate If 58 (L) >60 mL/min/1.7m2 07/04/2018 11:35 PM [facility] Black [facility] Comment: GFR Calc Calcium 9.3 8.5 - 10.1 07/04/2018 11:35 PM [facility] mg/dL [facility] Bilirubin Total 0.4 0.2 - 1.3 mg/dL 07/04/2018 11:35 P [facility] Albumin 3.9 3.4 - 5.0 g/dL 07/04/2018 11:35 PM [facility] Protein Total 7.8 6.8 - 8.8 g/dL 07/04/2018 11:[address] [facility] Alkaline Phosphatase 32 (L) 40 - 150 U/L 07/04/2018 11:35 PM [facility] ALT 22 0 - 70 U/L 07/04/2018 11:35 PM [facility] AST 22 0 - 45 U/L 07/04/2018 11:35 PM [facility] Specimen Anatomical Collection Method Collection Time Receive d Time (Source) Location / / Volume Laterality Blood specimen 07/04/2018 10:50 8 (specimen) PM CDT 11:14 PM CDT Sabino Mckeon MD LAB - BLOOD ORDERABLES Performing Organization Address City/State/ZIP Code Phon e Number [place] [address] [place] [address] [facility] [place] [address] [phone] (ABNORMAL) CBC + differential (07/04/2018 10:50 PM CDT) [facility] Method Time Signature WBC 7.8 4.0 - 07/05/2018 [place] 11.0 12:03 AM [facility] 10e9/L [facility] RBC Count 4.35 (L) 4.4 - 5.9 07/05/2018 [place] 10e12/L 12:03 [facility] Hemoglobin 13.9 13.3 - 07/05/2018 [facility] 17.7 g/dL 12:03 [facility] Hematocrit 43.3 40.0 - 07/05/2018 [facility] 53.0 % 12:03 [facility] MCV 100 78 - 100 07/05/2018 [facility] fl 12:03 [facility] MCH 32.0 26.5 - 07/05/2018 [facility] 33.0 pg 12:03 [facility] MCHC 32.1 31.5 - 07/05/2018 [facility] 36.5 g/dL 12:03 [facility] RDW 15.2 (H) 10.0 - 07/05/2018 [facility] 15.0 % 12:03 [facility] Platelet Count 242 150 - 450 07/05/2018 [facility] 10e9/L 12:03 [facility] Diff Method Automated 07/05/2018 [facility] Method 12:03 [facility] % Neutrophils 62.9 % 07/05/2018 [facility] 12:03 [facility] % Lymphocytes 19.5 % 07/05/2018 [facility] 12:03 [facility] % Monocytes 11.0 % 07/05/2018 [facility] 12:03 [facility] % Eosinophils 5.0 % 07/05/2018 [facility] 12:03 [facility] % Basophils 0.8 % 07/05/2018 [facility] 12:03 [facility] % Immature 0.8 % 07/05/2018 [facility] Granulocytes 12:03 [facility] Nucleated RBCs 0 0 /100 07/05/2018 [facility] 12:03 [facility] Absolute 4.9 1.6 - 8.3 07/05/2018 [facility] Neutrophil 10e9/L 12:03 [facility] Absolute 1.5 0.8 - 5.3 07/05/2018 [facility] Lymphocytes 10e9/L 12:03 [facility] Absolute 0.9 0.0 - 1.3 07/05/2018 [facility] Monocytes 10e9/L 12:03 AM [facility] Absolute 0.4 0.0 - 0.7 07/05/2018 [facility] Eosinophils 10e9/L 12:03 AM [facility] Absolute 0.1 0.0 - 0.2 07/05/2018 [place] Basophils 10e9/L 12:03 AM [facility] Abs Immature 0.1 0 - 0.4 07/05/2018 [place] Granulocytes 10e9/L 12:03 AM [facility] Absolute 0.0 07/05/2018 [place] Nucleated RBC 12:03 [facility] Specimen Anatomical Collection Method Collection Time Receive d Time (Source) Location / / Volume Laterality Blood specimen 07/04/2018 10:50 8 (specimen) PM CDT 11:14 PM CDT Sabino Mckeon MD LAB - BLOOD ORDERABLES Performing Organization Address City/State/ZIP Code Phon e Number M [address] [address] [phone] [phone] documented in this encounter Visit Diagnoses Diagnosis [...] analgesic side effects. Hold while on IV VIDEO CLERK or with regular IV opioid dosing. HYDROmorphone (DILAUDID) injection 0.2 m g Given 07/05/2018 1:54 AM CDT 0.2 mg 0.2 mg, Intravenous, ONCE, On Sun07/05/18 at 0114, For 1 dose documented in this encounter Active and Recently Administered Medications Times are shown in CDT. Scheduled Medication Order 07/03/2018 07/04/2018 07/05/2018 acetaminophen (TYLENOL) tablet 1,000 mg (COMPLETED) 015 (Given - Provider: Krissy Emmanuel, RN) 1,000 [...] analgesic side effects. Hold while on IV VIDEO CLERK or with regular IV opioid dosing. documented in this encounter Care Teams Braille Operator Relationship Specialty Start Date End Date Slava Hernandez PA-C PCP - General Physician Radiation Monitor 07/02/18 06/29/21 [facility] [id number] [place] [address] documented as of this encounter
--- OUTSIDE RECORDS SUMMARY | 2022-09-12 09:20 | XMS_ITS | Encounter Summary ---
:1940 Author Organization [place] Address [address] [facility] [place] [address] Care Team Providers Name Role Phone Mary Slava Estrella PA-C Primary Care Provider Reason for Visit Reason Onset Date Comments Prior Auth - Medication 10/02/2018 apixaban ANTICOA GULANT (ELIQUIS) 5 MG tablet- Tier Exception Denied Encounter Details Date Type Department Care Team Description 10/02/2018 Telephone [facility] Timothy Smith MD Prior Auth - Medication [facility] [place] [address] (apixaban ANTICOAGULANT [address] [facility] [address] (ELIQUIS) 5 MG tablet- [facility] [address] [place] [address] Tier Exception Denied) [place] [phone] Social History Tobacco Use Types Packs/Day Years [...] is requesting his refills to go to [facility]. Needing eliquis. Sent script to pharmacy. SIENNA Okeefe RMATICS SPECIALIST Telephone Encounter - Lacy Washington RN - 10/29/2018 10:19 AM CST Pt called as he needs a couple of weeks of samples of Eliquis to make it until his new insurance card arrives. 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 Jing RMATICS SPECIALIST Telephone Encounter - Lacy Washington RN - 10/28/2018 7:32 AM CST Pt called and LM and stated that he has changed his insurance from [employer] to [employer] and will bring in his card when it arrives in the mail. Will then do a new PA if needed. Jing RMATICS SPECIALIST Telephone Encounter - Lacy Washington RN - 10/22/2018 4:24 PM CST LM for pt to call back to discuss the Eliquis tier exception denial. Jing RMATICS SPECIALIST Telephone Encounter - Catherine Aranda LPN - [...] PA-message to EP Team Dr Smith-yvette mena RMATICS SPECIALIST Telephone Encounter - Yareli Tamez - 10/07/2018 [...] necessity to our PA Team. Appeal Information: RMATICS SPECIALIST Telephone Encounter - Yareli Tamez - 10/03/2018 12:54 PM CST Images from the original note were not included. Central Prior Authorization Team Ter Exception Renewal Initiation Medication: apixaban ANTICOAGULANT (ELIQUIS) 5 MG tablet Insurance Company: [employer] - Pharmacy Filling the Rx: [facility] MAIL DELIVERY - [address] Filling Pharmacy Filling Pharmacy Fax: Start Date: 10/03/2018 RMATICS SPECIALIST Telephone Encounter - Kitty Sierra - 10/02/2018 10:12 AM CST TIER EXCEPTION RENEWAL Prior Authorization Retail Medication Request Medication/Dose: apixaban ANTICOAGULANT (ELIQUIS) 5 MG tablet ICD code (if different than what is on RX): Paroxysmal atrial fibrillation (H) [I48.0] Previously Tried and Failed: See chart Rationale: Needs renewal on Tier exception Patient called to start process Insurance Name: [employer] BIN: [id number] PCN: [id number] Pharmacy Information (if different than what is on RX) Name: [facility] MAIL DELIV[facility] RMATICS SPECIALIST documented in this encounter Plan of Treatment Upcoming Encounters Date Type Specialty Care Team Description 09/28/2022 Lab Lab 09/28/2022 Office Visit Cardiology Timothy Smith MD [address] [place] [phone] Trudi Grayson APRN INTERVIEWING CLERK [address] [phone] 11/16/2022 Ancillary Procedure Cardiology Timothy Smith MD [address] [place] [id number] (Wo rk) documented as of this encounter Visit Diagnoses Diagnosis Paroxysmal atrial fibrillation (H) Atrial fibrillation documented in this encounter Care Teams Cytology Teacher Relationship Specialty Start Date End Date Slava Hernandez PAKatie PCP - General Physician Security Operations Center Analyst 07/02/18 06/29/21 [facility] [id number] [place] [id number] documented as of this encounter
--- OUTSIDE RECORDS SUMMARY | 2022-09-12 09:20 | XMS_ITS | Encounter Summary ---
:1940 Author Organization [place] Address [address] [facility] [place] [address] Care Team Providers Name Role Phone Slava Hernandez PA-C Primary Care Provider Reason for Visit CV Testing - Closed Specialty Diagnoses / Procedures Referred By Contact Refer red To Contact Diagnoses Pacemaker Basil Guadalupe MD Procedures Cardiac Device Check - Remote [address] [place] [address] Referral ID Status Reason Start Date Expiration Date Visits Requ ested Visits Authorized [id number] Closed 11/14/2018 11/14/2019 1 1 Encounter Details Date Type Department Care Team Description 11/14/2018 Ancillary Procedure [facility] [address] [facility] [address] [facility] [address] [place] [address] [place] [phone] Social History Tobacco Use Types Packs/Day Years [...] 09/28/2022 Office Visit Cardiology Timothy Smith MD [address] [place] [id number] Trudi Grayson APRN NOC TECHNICIAN [address] [id number] 11/16/2022 Ancillary Procedure Cardiology Timothy Smith MD [address] [place] [id number] (Wo rk) documented as of this encounter Procedures Procedure Name Priority Date/Time Associated Diagnosis Comme nts COURTESY DEVICE Routine 11/14/2018 11:19 AM Pacemaker Resul ts for this CHECK HOG SCRAPER procedure are i n the results section. documented in this encounter Results COURTESY DEVICE CHECK (11/14/2018 11:19 AM HOG SCRAPER) Component Value Ref Test Analysis Performed Pathologis t Range Method Time At Signature Date Time [id number] [employer] Interrogation Session Implantable [employer] Pulse Generator Furnace Setter Implantable L121 [place]SS[place] EL [employer]ONIC Pulse Generator Model Implantable [id number] MEDTRONIC Pulse Generator Serial Number Type Remote [facility]TRONIC Interrogation Session Clinic Name [facility] Implantable Pacemaker [employer]ONIC Pulse Generator Type Implantable [id number] [employer] Pulse Generator Implant Date Implantable Lead [facility] [facility] [employer] [facility]O RAUL Furnace Setter Implantable Lead 2088TC Tendril MEDTRONI C Model STS Implantable Lead [id number] [employer] Serial Number Implantable Lead [id number] MEDTRONIC Implant Date Implantable Lead Bipolar Lead [employer] Polarity Type Implantable Lead UNKNOWN [employer] Location Detail 1 Implantable Lead Right Atrium [facility] Location Implantable Lead [facility] RAUL Furnace Setter Implantable Lead 2088TC Tendril MEDTRONI C Model STS Implantable Lead [id number] [employer] Serial Number Implantable Lead [id number] [employer]ONIC Implant Date Implantable Lead Bipolar Lead [...] [employer]TRONIC Pacing Threshold Pulse Width Battery Date [id number] [employer]IC Time of Measurements Battery Status Beginning of MEDTRONIC Service Battery 108 mo [employer]TRONIC Remaining Longevity Battery 100 % [employer]IC Remaining Percentage Brandon Statistic [id number] [employer]TRONIC Date Time Start Brandon Statistic [id number] MEDTRONIC Date Time End Brandon Statistic 0 % MEDTRONIC RA Percent Paced Brandon Statistic 48 % [employer]TR[employer]IC RV Percent Paced Atrial Tachy [id number] [employer]TRONIC Statistic Date Time Start Atrial Tachy [id number] [employer]TRONIC Statistic Date Time End Atrial Tachy 80 % MEDTRONIC Statistic AT/AF [place] Percent Episode 497 [employer]TRONIC Statistic Recent Count [...] [place] MEDTRONIC Statistic Vendor Type Category Episode [id number] MEDTRONIC Statistic Recent Date Time Start Episode [id number] [employer]TRONIC Statistic Recent Date Time End Episode [id number] MEDTRONIC Statistic Recent Date Time Start Episode [id number] MEDTRONIC Statistic Recent Date Time End Episode [id number] [employer]TRONIC Statistic Recent Date Time Start Episode [id number] [employer]TRONIC Statistic Recent Date Time End Episode [id number] [employer]TRONIC Statistic Recent Date Time Start Episode [id number] [employer]TR[employer]IC Statistic Recent Date Time End Episode [id number] [employer]IC Identifier Episode Type Other MEDTRONIC Category Episode Date [id number] MEDTRONIC Time Episode V-1438 MEDTRONIC Identifier Episode Type [place] [employer]TR[employer]IC Category Episode Date [id number] MEDTRONIC Time Episode Duration 14 s MEDTRONIC Episode V-1437 MEDTRONIC Identifier Episode Type [place] MEDTRONIC Category Episode Date [id number] MEDTRONIC Time Episode Duration 12 s MEDTRONIC Episode V-1436 MEDTRONIC Identifier Episode Type VT MEDTRONIC Category Episode Date [id number] MEDTRONIC Time Episode Duration 12 s MEDTRONIC Episode V-1435 MEDTRONIC Identifier Episode Type VT MEDTRONIC Category Episode Date [id number] MEDTRONIC Time Episode Duration 12 s MEDTRONIC Episode V-1434 MEDTRONIC Identifier Episode Type SVT MEDTRONIC Category Episode Vendor SVT MEDTRONIC Type Category Episode Date [id number] MEDTRONIC Time Episode Duration 74 s MEDTRONIC Episode V-1433 MEDTRONIC Identifier Episode Type VT MEDTRONIC Category Episode Date [id number] MEDTRONIC Time Episode Duration 13 s MEDTRONIC Episode V-1432 MEDTRONIC Identifier Episode Type VT MEDTRONIC Category Episode Date [id number] MEDTRONIC Time Episode Duration 18 s MEDTRONIC Episode V-1431 MEDTRONIC Identifier Episode Type VT MEDTRONIC Category Episode Date [id number] MEDTRONIC Time Episode Duration 11 s MEDTRONIC Episode V-1430 MEDTRONIC Identifier Episode Type VT MEDTRONIC Category Episode Date [id number] MEDTRONIC Time Episode Duration 12 s MEDTRONIC Episode ATR-6504 MEDTRONIC Identifier Episode Type AT/AF MEDTRONIC Category Episode Date [id number] MEDTRONIC Time Episode V-1429 MEDTRONIC Identifier Episode Type VT MEDTRONIC Category Episode Date [id number] MEDTRONIC Time Episode Duration 12 s MEDTRONIC Episode V-1428 MEDTRONIC Identifier Episode Type VT MEDTRONIC Category Episode Date [id number] MEDTRONIC Time Episode Duration 12 s MEDTRONIC Episode APM-87 MEDTRONIC Identifier Episode Type Periodic EGM MEDTRONIC Category Episode Date [id number] [employer]TRONIC Time Anatomical Region Laterality Modality Other Specimen (Source) Anatomical Collection Method Collection Time Re ceived Time Location / / Volume Laterality 11/14/2018 4:55 PM HOG SCRAPER Narrative 11/20/2018 2:33 PM HOG SCRAPER courtesy check: Pt calling to report CHF [...] situ documented in this encounter Care Teams Poultry Helper Relationship Specialty Start Date End Date Slava Hernandez, JOSÉ MIGUELC PCP - General Physician Pet Sitting 07/02/18 06/29/[address] [address] documented as of this encounter
--- OUTSIDE RECORDS SUMMARY | 2022-09-12 09:20 | XMS_ITS | Encounter Summary ---
:1940 Author Organization [place] Address [address] [place] [address] Care Team Providers Name Role Phone Slava Hernandez PA-C Primary Care Provider Encounter Details Date Type Department Care Team Description 11/14/2018 Telephone [facility] Robert Norris, SIENNA, [facility] RN [address] [facility] [address] [facility] [address] [place] [address] [place] [address] [phone] (Wo rk) Social History Tobacco Use Types Packs/Day Years Used Date Smoking Tobacco: Never Smokeless Tobacco: Never Alcohol Use Standard Drinks/Week Comments No 0 (1 standard drink = 0.6 oz pure alcoho l) Sex Assigned at Date Recorded Not on file documented as of this encounter Miscellaneous Notes Telephone Encounter - Mary Norris, RN, RN - 11/14/2018 11:02 AM STOCK CRANE OPERATOR Pt calling to report CHF symptoms of fatiuge, weakness, decreased exercise intolerance, and palpitations. His PCP doubled his diuretic and wanted him to be seen by Dr Smiht. He cannot see Dr Smith for awhileso will see Saadia Montenegro instead on 11/15/18. He sent a remote PPM transmission that showed afib with controlled vent rate. He had 20 episodes of afib with RVR since 05/18 but none since 10/17/18. K CRANE OPERATOR documented in this encounter Plan of Treatment Upcoming Encounters Date Type Specialty Care Team Description 09/28/2022 Lab Lab 09/28/2022 Office Visit Cardiology Timothy Smith MD [address] [place] [phone] Trudi Grayson, FLACO INCINERATOR PLANT SUPERVISOR [address] [address] 11/16/2022 Ancillary Procedure Cardiology Timothy Smith MD [address] [place] 667475 (Wo rk) documented as of this encounter Visit Diagnoses Not on filedocumented in this encounter Care Teams Anchor Operator Relationship Specialty Start Date End Date Slava Hernandez PA-C PCP - General Physician Assistant Front Desk Manager 07/02/18 06/29/21 [facility] [address] [place] [address] documented as of this encounter
--- OUTSIDE RECORDS SUMMARY | 2022-09-12 09:20 | XMS_ITS | Encounter Summary ---
:1940 Author Organization [place] Address Replaced by [facility] [place] [address] Care Team Providers Name Role Phone Clinic, [facility] Primary Care Provider [phone] Reason for Visit Reason Onset Date Comments Refill Request 06/25/2018 eliquis Encounter Details Date Type Department Care Team Description 06/25/2018 Refill [facility] Zarina Smith MD Refill Request (eliquis) [facility] [place] [address] [place] [id number] [address] [place] [address] [place] [phone] Social History Tobacco Use Types Packs/Day Years [...] Visit Cardiology Timothy Smith MD [address] [place] [phone] Trudi Grayson APRN WOOL WASHING MACHINE OPERATOR [address] [address] 11/16/2022 Ancillary Procedure Cardiology Timothy Smith MD [address] [place] [address] (Wo rk) documented as of this encounter Visit Diagnoses Diagnosis Paroxysmal atrial fibrillation (H) Atrial fibrillation documented in this encounter Care Teams Oil Well Services Dispatcher Relationship Specialty Start Date End Date [facility], [facility] PCP - General 01/16/18 07/01/18 [address] [place] [address] documented as of this encounter
--- OUTSIDE RECORDS SUMMARY | 2022-09-12 09:20 | XMS_ITS | Encounter Summary ---
:1940 Author Organization [place] Address [address] [facility] [place] [address] Care Team Providers Name Role Phone Slava Hernandez PA-C Primary Care Provider Reason for Referral Diagnostic Imaging XR - Closed Specialty Diagnoses / Procedures Referred By Contact Refer red To Contact Radiology. Diagnoses Calculus of kidney Shea Rivera PA-C Rh Xray Procedures XR KUB [[id number]] [address] [place], [place] [phone] Fax: Referral ID Status Reason Start Date Expiration Date Visits Requ ested Visits Authorized [id number] Closed 10/23/2018 10/23/2019 1 1 NGUAL COUNTER SALES RETAIL Reason for Visit Diagnostic Imaging XR - Closed Specialty Diagnoses / Procedures Referred By Contact Refer red To Contact Radiology. Diagnoses Calculus of kidney Shea Rivera PA-C Rh Xray Procedures XR KUB [[id number]] [address] [place], [place] [phone] Fax: Referral ID Status Reason Start Date Expiration Date Visits Requ ested Visits Authorized [id number] Closed 10/23/2018 10/23/2019 1 1 Encounter Details Date Type Department Care Team Description 10/23/2018 Hospital Encounter [facility] MiguelShea, Calculus of kidney [facility] PA-C [address] [address] [place] [address] [phone] Social History Tobacco Use Types Packs/Day Years [...] Take 1 tablet (5 12 tablet 0 1001/201801/01/2019 5 MG tablet mg) by mouth every [...] 09/28/2022 Office Visit Cardiology Timothy Smith MD [address] [place] [address] Trudi Grayson APRN SHAKE TABLE OPERATOR [address] [address] 11/16/2022 Ancillary Procedure Cardiology Timothy Smith MD [address] [place] [address] (Wo rk) documented as of this encounter Procedures Procedure Name Priority Date/Time Associated Diagnosis Comme nts XR KUB Routine 10/23/2018 2:27 PM Calculus of kidney Res ults for this BILINGUAL COUNTER SALES RETAIL procedure are i n the results section . documented in this encounter Results XR KUB [[id number]] (10/23/2018 2:27 PM BILINGUAL COUNTER SALES RETAIL) Anatomical Region Laterality Modality Abdomen/Pelvis Digital Radiography Specimen (Source) Anatomical Location Collection Method / Collectio n Time Received Time / Laterality Volume Impressions 10/23/2018 2:44 PM BILINGUAL COUNTER SALES RETAIL IMPRESSION: No specific evidence of the previously seen distal ureteral stone. JEFFREY PA MD Narrative 10/23/2018 2:44 PM BILINGUAL COUNTER SALES RETAIL XR KUB 10/23/2018 2:27 PM HISTORY: Left [...] distal ureteral stone. JEFFREY PA MD Shea [facility] ORDER ANN documented in this encounter Visit Diagnoses Diagnosis Calculus of kidney documented in this encounter Care Teams Manager Property Relationship Specialty Start Date End Date Slava Hernandez PA-C PCP - General Physician Victims Advocate Clerk/Specialist 07/02/18 06/29/21 [facility] [address] [place] [address] documented as of this encounter
--- OUTSIDE RECORDS SUMMARY | 2022-09-12 09:20 | XMS_ITS | Encounter Summary ---
:1940 Author Organization [place] Address [facility] [place] [address] Care Team Providers Name Role Phone Clinic, [facility] Primary Care Provider [phone] Reason for Visit Reason Onset Date Comments Clinic Care Coordination - Follow-up 05/31/2018 Encounter Details Date Type Department Care Team Description 05/31/2018 Telephone [facility] Temitope Tamayo, Clinic Care Coordination Clinic [place] RN - Follow-up [address] [facility] [address] [place] [phone] Social History Tobacco Use Types Packs/Day Years [...] 09/28/2022 Office Visit Cardiology Timothy Smith MD [address] [place] [phone] Trudi Grayson APRN WIRE STITCHER [address] [address] 11/16/2022 Ancillary Procedure Cardiology Timothy Smith MD [address] [place] [address] (Wo rk) documented as of this encounter Visit Diagnoses Not on filedocumented in this encounter Care Teams Caustic Operator Relationship Specialty Start Date End Date [facility], Vinny Merrill PCP - General 01/16/18 07/01/18 [address] [address] [place] [phone] documented as of this encounter
--- OUTSIDE RECORDS SUMMARY | 2022-09-12 09:20 | XMS_ITS | Encounter Summary ---
:1940 Author Organization [place] Address [address] [facility] [place] [address] Care Team Providers Name Role Phone Clinic, [facility] Primary Care Provider [phone] Reason for Visit Reason Comments Pacemaker Check Rep check Pre AF ablation (c ancelled) Encounter Details Date Type Department Care Team Description 05/31/2018 Documentation Only [facility] Fabiola Hurtado Check (Rep Heart [facility] [place] Bui, RN, RN check Pre AF [address] [facility] HEART ablati on... [address] [place] [address] [phone] [address] [place] [address] Social History Tobacco Use Types Packs/Day Years Used Date Smoking Tobacco: Never Smokeless Tobacco: Never Alcohol Use Standard Drinks/Week Comments No 0 (1 standard drink = 0.6 oz pure alcoho l) Sex Assigned at Date Recorded Not on file documented as of this encounter Progress Notes Fabiola Hurtado, RN, RN - 06/07/2018 3:48 PM CDT [employer] (D) PPM REP INTERROGATION Rep [...] MD [address] [place] [address] Trudi Grayson APRN CHUCKING MACHINE SET UP OPERATOR TOOL [address] [address] 11/16/2022 Ancillary Procedure Cardiology Timothy Smith MD [address] [place] [address]49[address] (Wo rk) documented as of this encounter Visit Diagnoses Not on filedocumented in this encounter Care Teams Casting Inspector Relationship Specialty Start Date End Date Clinic, Vinny Jaimes PCP - General 01/16/18 07/01/18 [address] [place] [address] documented as of this encounter
--- OUTSIDE RECORDS SUMMARY | 2022-09-12 09:20 | XMS_ITS | Encounter Summary ---
:1940 Author Organization [place] Address [facility] [place] [address] Care Team Providers Name Role Phone Vinny Reinoso Primary Care Provider [phone] Encounter Details Date Type Department Care Team Description 06/11/2018 Documentation Only [facility] [place], [place] [address] [facility] [address] [place] [phone] Social History Tobacco Use Types Packs/Day Years [...] Smith and also has seen Elda Oliver CAPTAIN ROOM SERVICE---had resent decrease in his lasix dose-Elda wanted pt to get a BMP 1 week after the medication decrease- He lives [place] of the [facility], and would like to have that done @ his PMD office- Vinny Jaimes-I faxed the order to [phone], and have asked them to fax results to my attention-yvette cummins 07-01-2018--I called Vinny @ [facility] to see if pt went in for labs(BMP) await the fax result or call from clinic RN-yvette cummins documented in this encounter Plan of Treatment Upcoming Encounters Date Type Specialty Care Team Description 09/28/2022 Lab Lab 09/28/2022 Office Visit Cardiology Timothy Smith MD [address] [place] [address] [address] 2255[address] 11/16/2022 Ancillary Procedure Cardiology Timothy Smith MD [address] [place] [address] (Wo rk) documented as of this encounter Visit Diagnoses Not on filedocumented in this encounter Care Teams Tax Processor Relationship Specialty Start Date End Date [facility], Vinny Jaimes PCP - General 01/16/18 07/01/18 [address] [address] [place] [phone] documented as of this encounter
--- OUTSIDE RECORDS SUMMARY | 2022-09-12 09:20 | XMS_ITS | Encounter Summary ---
:1940 Author Organization [place] Address [address] [place] [address] Care Team Providers Name Role Phone Slava Hernandez PA-C Primary Care Provider Reason for Referral Diagnostic Imaging XR - Closed Specialty Diagnoses / Procedures Referred By Contact Refer red To Contact Radiology. Diagnoses Calculus of kidney Shea Rivera PA-C Rh Xray Procedures XR KUB [[id number]] [address] [place] [address] [place], [place] [phone] Fax: Referral ID Status Reason Start Date Expiration Date Visits Requ ested Visits Authorized [id number] Closed 10/23/2018 10/23/2019 1 1 UNICATIONS TECHNOLOGIST Reason for Visit Reason Comments Other stone Encounter Details Date Type Department Care Team Description 10/23/2018 Office Visit [facility] Shea Rivera, Calcul us of kidney (Primary Dx); Urology Clinic [facility] Benign prostatic hyperplasia with weak u rinary stream [place] [address] [place] [address] [place], [place] [phone] (Work) [phone] Social History Tobacco Use Types Packs/Day Years Used Date Smoking Tobacco: Never Smokeless Tobacco: Never Alcohol Use Standard Drinks/Week Comments No 0 (1 standard drink = 0.6 oz pure alcoho l) Sex Assigned at Date Recorded Not on file documented as of this encounter Last Filed Vital Signs Vital Sign Reading Time Taken Comments Blood Pressure - - Pulse 82 10/23/2018 1:26 PM COMMUNICATIONS TECHNOLOGIST Temperature - - Respiratory Rate - - Oxygen Saturation 92% 10/23/2018 1:26 PM COMMUNICATIONS TECHNOLOGIST Inhaled Oxygen Concentration - - Weight 133.8 kg (295 lb) 10/23/2018 1:26 PM COMMUNICATIONS TECHNOLOGIST Height 180.3 cm (5' 11) 10/23/2018 1:26 PM COMMUNICATIONS TECHNOLOGIST Body Mass Index 41.14 10/23/2018 1:26 PM COMMUNICATIONS TECHNOLOGIST documented in this encounter Patient Instructions Patient [...] laxatives. -Additional/different recommendations pending any stone analysis. UNICATIONS TECHNOLOGIST documented in this encounter Progress Notes Shea [...] contact me with any questions or concerns. hSea Rivera PA-C [facility] 30 minutes were spent with the patient today, > 50% in counseling and coordination of care of kidney stone. UNICATIONS TECHNOLOGIST Shea Rivera PA-C - 10/23/2018 1:30 PM CST [address] [place] UNICATIONS TECHNOLOGIST documented in this encounter Nursing Notes Delores Wilburn CMA - 10/23/2018 1:30 PM CST Pt here for stone Follow-up. Pt has had dark urine. Pt sometimes had flank pain. Pt passed 2 stones in Trae Duenas CMA UNICATIONS TECHNOLOGIST documented in this encounter Plan of Treatment Upcoming Encounters Date Type Specialty Care Team Description 09/28/2022 Lab Lab 09/28/2022 Office Visit Cardiology Timothy Smith MD [address] [place] [address] Trudi Grayson APRN MANAGER OF HOSPITAL [address] [address] 11/16/2022 Ancillary Procedure Cardiology Timothy Smith MD [address] [place] [phone] (Wo rk) documented as of this encounter Procedures Procedure Name Priority Date/Time Associated Comments Diagnosis URINE MACROSCOPIC Routine 10/23/2018 1:33 PM Calculus of kidne y Results for this ONLY COMMUNICATIONS TECHNOLOGIST procedure are i n the results section. documented in this encounter Results XR KUB [[id number]] (10/23/2018 2:27 PM COMMUNICATIONS TECHNOLOGIST) Anatomical Region Laterality Modality Abdomen/Pelvis Digital Radiography Specimen (Source) Anatomical Location Collection Method / Collectio n Time Received Time / Laterality Volume Impressions 10/23/2018 2:44 PM COMMUNICATIONS TECHNOLOGIST IMPRESSION: No specific evidence of the previously seen distal ureteral stone. JEFFREY PA MD Narrative 10/23/2018 2:44 PM COMMUNICATIONS TECHNOLOGIST XR KUB 10/23/2018 2:27 PM HISTORY: Left [...] IMAGING ORDER ANN (ABNORMAL) UA without Microscopic [[id number]] (10/23/2018 1:33 PM [facility]) [facility] Method Time Signature Color Urine Yellow 10/23/2018 [place] 1:36 PM [facility] Appearance Urine Clear 10/23/2018 [place] 1:36 PM COMMUNICATIONS TECHNOLOGIST [facility] Glucose Urine Negative NEG^Negat 10/23/2018 [place] mike mg/dL 1:36 PM COMMUNICATIONS TECHNOLOGIST [facility] Bilirubin Urine Negative NEG^Negat 10/23/2018 [place] mike 1:36 PM COMMUNICATIONS TECHNOLOGIST [facility] Ketones Urine Trace (A) NEG^Negat 10/23/2018 [place] mike mg/dL 1:36 PM [facility] Specific [place] >1.030 1.003 - 10/23/2018 [place] Urine 1.035 1:36 PM [facility] Blood Urine Negative NEG^Negat 10/23/2018 [place] mike 1:36 PM COMMUNICATIONS TECHNOLOGIST [facility] pH Urine 6.0 5.0 - 7.0 10/23/2018 [place] pH 1:36 PM COMMUNICATIONS TECHNOLOGIST [facility] Protein Albumin 100 (A) NEG^Negat 10/23/2018 [place] Urine mike mg/dL 1:36 PM COMMUNICATIONS TECHNOLOGIST [facility] Urobilinogen 1.0 0.2 - 1.0 10/23/2018 [place] Urine EU/dL 1:36 PM COMMUNICATIONS TECHNOLOGIST [facility] Nitrite Urine Negative NEG^Negat 10/23/2018 [place] mike 1:36 PM COMMUNICATIONS TECHNOLOGIST [facility] Leukocyte Negative NEG^Negat 10/23/2018 [place] Esterase Urine mike 1:36 PM COMMUNICATIONS TECHNOLOGIST [facility] Source Midstream 10/23/2018 [place] Urine 1:35 PM COMMUNICATIONS TECHNOLOGIST [facility] Specimen (Source) Anatomical Collection Method Collection Time Re ceived Time Location / / Volume Laterality Examination of 10/23/2018 1:33 10/23/2018 1:34 midstream urine PM COMMUNICATIONS TECHNOLOGIST PM COMMUNICATIONS TECHNOLOGIST specimen (procedure) Shea Rivera PA-C LAB - URINE ORDERABLES Performing Organization Address City/State/ZIP Code Phon e Number [facility] [address] [place] [phone] [facility] [address] documented in this encounter Visit Diagnoses Diagnosis Calculus of kidney - Primary Benign prostatic hyperplasia with weak u rinary stream Calculus of kidney documented in this encounter Care Teams Extern Relationship Specialty Start Date End Date Slava Hernandez PA-C PCP - General Physician Janitorial Account Manager 07/02/18 06/29/21 [facility] [address] [place] [address] documented as of this encounter
--- OUTSIDE RECORDS SUMMARY | 2022-09-12 09:20 | XMS_ITS | Encounter Summary ---
:1940 Author Organization [place] Address [address] [facility] [place] [address] Care Team Providers Name Role Phone Kem[place], Vinny Hopkins Primary Care Provider [phone] Reason for Visit (Routine) - Closed Specialty Diagnoses / Procedures Referred By Contact Refer red To Contact Cardiology Diagnoses Per Sarah Persistent atrial fibrillation Rh Echo [facility] Procedures [facility]TE [address] [place], [place] [address] Phone: Fax: Referral ID Status Reason Start Date Expiration Date Visits Requ ested Visits Authorized [id number] Closed 06/26/2018 06/26/2019 1 1 Encounter Details Date Type Department Care Team Description 06/26/2018 Hospital Encounter [facility] Ankur Smith MD [facility] [address] [place] [address] AVWilfred fibrillat ion (H) [facility] [address] [address] [place] [address] [address] [place], [place] (Work) [address] Social History Tobacco Use [...] 09/28/2022 Office Visit Cardiology Ankur Smith MD [address] [place] [address] Trudi Grayson APRN PHYSICIAN GENERAL PRACTICE [address] [address] 11/16/2022 Ancillary Procedure Cardiology Ankur Smith MD [address] [place] [id number] (Wo rk) documented as of this encounter [...] AM CDT Narrative 06/26/2018 1:09 PM CDT [id number]^SARAH^ANKUR [facility] Echocardiography Laboratory [address] [place] [address] Name: RADHA FAROOQ : 1940 Study Date: 06/26/2018 10:37 AM Age: 77 yrs Gender: Male Patient Location: [facility] Reason For Study: Persistent atrial fibr illation (H) Ordering Physician: ANKUR SMITH Referring Physician: [place] Performed By: Britany Sales RDCS BSA: 2.5 [...] note might be different from the original. [id number]^SARAH^ANKUR [facility]ocardi[facility] Laboratory [address] [place] [address] Name: RADHA FAROOQ Juan Miguel : 1940 Study Date: 06/26/2018 10:37 AM Age: 77 yrs Gender: Male Patient Location: [facility] Reason For Study: Persistent atrial fibr illation [...] dose documented in this encounter Care Teams Manager Exchange Relationship Specialty Start Date End Date Clinic, [place]inny [place] PCP - General 01/16/18 07/01/18 [address] [place] [phone] documented as of this encounter
--- OUTSIDE RECORDS SUMMARY | 2022-09-12 09:20 | XMS_ITS | Encounter Summary ---
:1940 Author Organization [place] Address [address] [facility] [place] [address] Care Team Providers Name Role Phone Clinic, [facility] Primary Care Provider [phone] Reason for Visit Reason Onset Date Comments Clinic Care Coordination - Follow-up 05/31/2018 [facility] up appt Encounter Details Date Type Department Care Team Description 05/31/2018 [facility] Heart Temitope Tamayo, Clinic Care Coordination Clinic [place] RN - Follow-up (follow up [address] [facility] appt) [facility] [address] [place] [address] Social History Tobacco Use Types [...] MD [address] [place] [address] Trudi Grayson APRN AUTOMOBILE ACCESSORIES INSTALLER [address] [address] 11/16/2022 Ancillary Procedure Cardiology Timothy Smith MD [address] [place] [phone] (Wo rk) documented as of this encounter Visit Diagnoses Not on filedocumented in this encounter Care Teams Cofounder Relationship Specialty Start Date End Date [facility], Vinny [place] PCP - General 01/16/18 07/01/18 [address] [place] [phone] documented as of this encounter
--- OUTSIDE RECORDS SUMMARY | 2022-09-12 09:21 | XMS_ITS | Encounter Summary ---
:1940 Author Organization [place] Address [facility] [place] [place] [address] Care Team Providers Name Role Phone Clinic, [facility] Primary Care Provider [phone] Encounter Details Date Type Department Care Team Description 05/21/[address] [facility] Heart CAD (coronary artery Clinic [facility] or disease) [address] [facility] [address] [place] [phone] Social History Tobacco Use Types Packs/Day Years [...] [address] [place] [phone] Trudi Grayson APRN CUSTOMER ENGAGEMENT REPRESENTATIVE [address] [place] [id number] 11/16/2022 Ancillary Procedure Cardiology Timothy Smith MD [address] [place] [id number] (Wo rk) documented as of this encounter [...] [facility] mmol/L 3:31 PM CDT [facility] A Potassium 4.7 3.5 - 5.1 05/21/2018 [facility] mmol/L 3:31 PM CDT [facility] A Chloride 101 98 - 107 05/21/2018 [facility] mmol/L 3:31 PM CDT [facility] A Carbon Dioxide 31 (H) 23 - 29 05/21/2018 [facility] mmol/L 3:31 PM T [facility] A Anion Gap 13.7 6 - 17 05/21/2018 [facility] mmol/L 3:31 PM T [facility] A Glucose 154 (H) 70 - 105 05/21/2018 [facility] mg/dL 3:31 PM T [facility] A Urea Nitrogen 44 (H) 7 - 30 05/21/2018 [facility] mg/dL 3:31 PM T [facility] A Creatinine 2.03 (H) 0.70 - 05/21/2018 [facility] 1.30 mg/dL 3:31 PM T [facility] A GFR Estimate 32 (L) >60 05/21/2018 [facility] mL/min/1.7 3:31 PM T [facility] m2 A GFR Estimate If 39 (L) >60 05/21/2018 [facility] [place] mL/min/1.7 3:31 PM T [facility] m2 A Calcium 10.3 8.5 - 10.5 05/21/2018 [facility] mg/dL 3:31 PM T [facility] A Specimen Anatomical Collection Method Collection Time Receive d Time (Source) Location / / Volume Laterality Blood specimen 05/21/2018 2:05 PM 018 2:07 (specimen) CDT PM CDT Elda Johnson APRN CUSTOMER ENGAGEMENT REPRESENTATIVE LAB - BLOOD ORDERABL ES Performing Organization Address City/State/ZIP Code Phon e Number [facility] [address] [place] [address] [address] documented in this encounter Visit Diagnoses Diagnosis CAD (coronary artery disease) Coronary atherosclerosis of unspecified type of vessel, kake or graft documented in this encounter Care Teams Biofuels Technology Manager Relationship Specialty Start Date End Date Clinic, [facility] PCP - General 01/16/18 07/01/18 [address] [place] [address] documented as of this encounter
--- OUTSIDE RECORDS SUMMARY | 2022-09-12 09:21 | XMS_ITS | Encounter Summary ---
:1940 Author Organization [place] Address [address] [facility] [place] [address] Care Team Providers Name Role Phone Clinic, [facility] Primary Care Provider Reason for Visit Reason Comments Pacemaker Check Rep check post cardioversion Encounter Details Date Type Department Care Team Description 05/07/2018 Documentation Only [facility] Fabiola Hurtado Check (Rep Heart Clinic [place] Bui RN, RN check post [address] [facility] HEART cardio vers... [address] [place] [address] [phone] [address] [place] [address] Social History Tobacco Use Types Packs/Day Years Used Date Smoking Tobacco: Never Smokeless Tobacco: Never Alcohol Use Standard Drinks/Week Comments No 0 (1 standard drink = 0.6 oz pure alcoho l) Sex Assigned at Date Recorded Not on file documented as of this encounter Progress Notes Fabiola Hurtado RN, RN - 05/07/2018 1:19 PM CDT [employer] [facility] PPM REP CHECK POST CARDIOVERSION [...] MD [address] [place] [address] Trudi Grayson APRN RESEARCH AND INSIGHTS EXECUTIVE [address] [address] 11/16/2022 Ancillary Procedure Cardiology Timothy Smith MD [address] [place] [phone] (Wo rk) documented as of this encounter Visit Diagnoses Not on filedocumented in this encounter Care Teams Feather Baler Relationship Specialty Start Date End Date [facility], Vinny [place] PCP - General 01/16/18 07/01/18 [address] [address] [place] [phone] documented as of this encounter
--- OUTSIDE RECORDS SUMMARY | 2022-09-12 09:21 | XMS_ITS | Encounter Summary ---
:1940 Author Organization [place] Address [facility] [place] [address] Care Team Providers Name [facility] Provider [phone] Encounter Details Date Type Department Care Team Description 05/28/2018 [facility] Heart Aravind Sunshine, [facility] [place] [address] [facility] [address] [place] [phone] Social History Tobacco Use Types Packs/Day Years [...] [address] [place] [phone] Trudi Grayson APRN COTTON WRINGER [address] [phone] 11/16/2022 Ancillary Procedure Cardiology Timothy Smith MD [address] [place] [phone] (Wo rk) documented as of this encounter Visit Diagnoses Not on filedocumented in this encounter Care Teams Ocean Transportation Intermediary Relationship Specialty Start Date End Date [facility], Vinny [place] PCP - General 01/16/18 07/01/18 [address] [place] [address] documented as of this encounter
--- OUTSIDE RECORDS SUMMARY | 2022-09-12 09:21 | XMS_ITS | Encounter Summary ---
:1940 Author Organization [place] Address 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); [address] [facility] Sleep paralegal instructor ea, unspecified type; South [address] Cardiomyopathy, unspecified type (H); [address] Typical atrial flutter (H); [address] Ischemic cardiomyopathy [phone] Social History Tobacco Use Types Packs/Day Years [...] Afib RNs: Lacy Del Rosario and Pat [phone] Call for Electrophysiology procedure scheduling concerns [phone] Device Clinic (Pacemakers, ICDs, Loop Recorders) RN's: Sammi Cotton Lynda, MJ, Stephanie, Sue During business hours: [phone] documented in this encounter Progress Notes Elda [...] any questions or concerns. Elda Johnson APRN, VIDEO MACHINES MECHANIC This note was completed in part using [employer] voice recognition software. Although reviewed after completion, [...] (H) Yes ??? 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
--- OUTSIDE RECORDS SUMMARY | 2022-09-12 09:21 | XMS_ITS | Encounter Summary ---
:1940 Author Organization [place] Address [facility] [place] [address] Care Team Providers Name Role Phone Clinic, [facility] Primary Care Provider [phone] Reason for Referral - Closed Specialty Diagnoses / Procedures Referred By Contact Refer red To Contact Diagnoses Paroxysmal atrial fibrillation (H) [facility] [address] [facility] [place] [address] [place] [address] Referral ID Status Reason Start Date Expiration Date Visits Requ ested Visits Authorized [id number] Closed 05/20/2018 05/20/2019 1 1 Reason for Visit Reason Comments Clinic Care Coordination - Follow-up Encounter Details Date Type Department Care Team Description 05/07/2018 Care Coordination [facility] Brisa Sunshine [facility] Heart Clinic [place] Vital RN Coordination - [address] [facility] Follow-up [facility] [address] [place] [address] Social History Tobacco Use Types Packs/Day [...] [address] [place] [phone] Trudi Grayson APRN TRAFFIC ANALYST [address] [address]600[address] 11/16/2022 Ancillary Procedure Cardiology Timothy Smith MD [address] [place] [phone] (Wo rk) Scheduled Referrals Name Type Priority Associated Diagnoses Order S chedule Follow-Up with Referral Routine Paroxysmal atrial Expected : 05/20/2018 Device Clinic fibrillation (H) (Approxima te), Expires: 2018 documented as of this encounter Visit Diagnoses Diagnosis Paroxysmal atrial fibrillation (H) - Ria jing Atrial fibrillation documented in this encounter Care Teams Dragline Operator Helper Relationship Specialty Start Date End Date [facility], Vinny [place] PCP - General 01/16/18 07/01/18 [address] [place] [phone] documented as of this encounter
--- OUTSIDE RECORDS SUMMARY | 2022-09-12 09:21 | XMS_ITS | Encounter Summary ---
:1940 Author Organization [place] Address [address] [place] [address] Care Team Providers Name Role Phone Clinic, [facility] Primary Care Provider Reason for Visit Reason Onset Date Comments Clinic Care Coordination - Initial 05/30/2018 pre i nstructions for aflutter ablation scheduled for 05/31 Encounter Details Date Type Department Care Team Description 05/30/2018 Telephone [facility] Heart Temitope Tamayo, Clinic Care Coordination Clinic [place] RN - Initial (pre [address] [facility] for [facility] [address] aflutter ablation [place] [phone] scheduled for 05/31 ) [phone] Social History Tobacco Use Types Packs/Day Years [...] overnight after procedure. Patient will have a electric train driver post procedure and someone to stay [...] MD [address] [place] [address] Trudi Grayson APRN MACHINE MAINTENANCE SERVICER [address] [address] 11/16/2022 Ancillary Procedure Cardiology Timothy Smith MD [address] [place] [address] (Wo rk) documented as of this encounter Visit Diagnoses Not on filedocumented in this encounter Care Teams Electrician Journeyman Wireman Relationship Specialty Start Date End Date [facility], [facility] PCP - General 01/16/18 07/01/18 [address] [address] [place] [phone] documented as of this encounter
--- OUTSIDE RECORDS SUMMARY | 2022-09-12 09:21 | XMS_ITS | Encounter Summary ---
:1940 Author Organization [place] Address [address] [facility] [place] [address] Care Team Providers Name Role Phone Clinic, [facility] Primary Care Provider [phone] Reason for Visit Reason Comments Pacemaker Check annual - Closed Specialty Diagnoses / Procedures Referred By Contact Refer red To Contact Diagnoses Paroxysmal atrial fibrillation (H) [facility] [phone] [place] [address] Referral ID Status Reason Start Date Expiration Date Visits Requ ested Visits Authorized [id number] Closed 05/20/2018 05/20/2019 1 1 Encounter Details Date Type Department Care Team Description 05/21/2018 [facility] Timothy Smith MD Pacemaker Check Health/Nurse [facility] [place] [address] [facility] (annual) Visit [address] [address] [place] [address] [place] [phone] Social History Tobacco Use Types Packs/Day Years Used Date Smoking Tobacco: Never Smokeless Tobacco: Never Alcohol Use Standard Drinks/Week Comments No 0 (1 standard drink = 0.6 oz pure alcoho l) Sex Assigned at Date Recorded Not on file documented as of this encounter Progress Notes Sarina Carty RN - 05/21/2018 2:30 PM CDT [place] [employer] (D) Pacemaker Device Check AP: 0 % IN HOME CAREGIVER: 34 % Mode: DDDR 60-130 Underlying Rhythm: [...] MD [address] [place] [address] Trudi Grayson APRN SOFTWARE SALES [address] [place] [address] 11/16/2022 Ancillary Procedure Cardiology Timothy Smith MD [address] [place] [address] (Wo rk) documented as of this encounter Procedures Procedure Name Priority Date/Time Associated Diagnosis Comme nts PM DEVICE PROGRAMMING Routine 05/21/2018 Cardiac pacemaker in situ EVAL, SINGLE LEAD/LEADLESS SSS (sick sinu s syndrome) PACER (H) documented in this encounter Results PM DEVICE PROGRAMMING EVAL, SINGLE LEAD PACER ([id number]) (05/21/2018) Narrative This result has an attachment that is no t available. Timothy Smith MD PROCEDURES documented in this encounter Visit Diagnoses Diagnosis Cardiac pacemaker in situ - Primary SSS (sick sinus syndrome) (H) Sinoatrial node dysfunction documented in this encounter Care Teams Bellows Assembler Relationship Specialty Start Date End Date [facility], [facility] PCP - General 01/16/18 07/01/18 [address] [place] [phone] documented as of this encounter
--- OUTSIDE RECORDS SUMMARY | 2022-09-12 09:21 | XMS_ITS | Encounter Summary ---
:1940 Author Organization [place] Address [facility] [place] [address] Care Team Providers Name Role Phone Clinic, [facility] Primary Care Provider [phone] Reason for Visit Reason Onset Date Comments Refill Request 05/07/[address] bridge [address] [place]-order script-sent to [facility] Encounter Details Date Type Department Care Team Description 05/07/[address] [facility] Heart Zarina Smith MD Refill Request (needs a Clinic [place] [address] bridge to mail-order [address] [facility] [address] script-sent to [facility]) [address] [place] [address] [place] [phone] Social History Tobacco Use Types Packs/Day Years [...] Visit Cardiology Timothy Smith MD [address] [place] [address] Trudi Grayson APRN REHEATER [address] [place] [phone] 11/16/2022 Ancillary Procedure Cardiology Timothy Smith MD [address] [place] [address] (Wo rk) documented as of this encounter Visit Diagnoses Diagnosis Persistent atrial fibrillation (H) Atrial fibrillation documented in this encounter Care Teams Trimmer Sawyer Relationship Specialty Start Date End Date [facility], [facility] PCP - General 01/16/18 07/01/18 [address] [place] [address] documented as of this encounter
--- OUTSIDE RECORDS SUMMARY | 2022-09-12 09:21 | XMS_ITS | Encounter Summary ---
:1940 Author Organization [place] Address [facility] [place] [address] Care Team Providers Name Role Phone Clinic, [facility] Primary Care Provider [phone] Reason for Referral - Closed Specialty Diagnoses / Procedures Referred By Contact Refer red To Contact Diagnoses Typical atrial flutter (H) Timothy Smith MD [address] [place] [address] Referral ID Status Reason Start Date Expiration Date Visits Requ ested Visits Authorized [id number] Closed 05/31/2018 05/31/2019 1 1 Encounter Details Date Type Department Care Team Description 05/31/2018 Hospital Encounter [facility] Timothy Smith MD Typical atrial [facility] [address] flutter (H ) [address] [place] [address] [place] [address] [phone] Social History Tobacco Use Types Packs/Day Years [...] Office Visit Cardiology Timothy Smith MD [address] [place] [phone] Trudi Grayson, FLACO CUSTOMER SERVICE OPERATOR [address] [place] [address] 11/16/2022 Ancillary Procedure Cardiology Timothy Smith MD [address] [place] [phone] (Wo rk) Scheduled Referrals Name Type Priority Associated Diagnoses Order S chedule Follow-Up with Referral Routine Typical atrial Expected: Slunk Skin Curer flutter (H) 07/30/20 18 (Approximate), Expires: 05/31/2019 [...] 12-lead, tracing only (05/31/2018 1:40 PM CDT) [facility] Praccel Method Time Signature Interpretation ECG Click View RADIOLOGY Image link RESULTS to view waveform and result Specimen (Source) Anatomical Collection Method Collection Time Re ceived Time Location / / Volume Laterality 05/31/2018 1:40 PM CDT Timothy Smith MD ECG ORDERABLES Performing Organization Address City/State/ZIP Code Phon e Number RADIOLOGY RESULTS EKG 12-lead, tracing only (05/31/2018 11:43 AM CDT) [facility] Praccel Method Time Signature Interpretation ECG Click View [...] - 11.0 05/31/2018 [facility] 10e9/L 12:33 PM [facility] RBC Count 4.39 (L) 4.4 - 5.9 05/31/2018 [facility] 10e12/L 12:33 PM [facility] Hemoglobin 14.0 13.3 - 05/31/2018 [facility] 17.7 g/dL 12:33 PM [facility] Hematocrit 42.3 40.0 - 05/31/2018 [facility] 53.0 % 12:33 PM [facility] MCV 96 78 - 100 05/31/2018 [facility] fl 12:33 PM [facility] MCH 31.9 26.5 - 05/31/2018 [facility] 33.0 pg 12:33 PM [facility] MCHC 33.1 31.5 - 05/31/2018 [facility] 36.5 g/dL 12:33 PM [facility] RDW 14.8 10.0 - 05/31/2018 [facility] 15.0 % 12:33 PM [facility] Platelet Count 228 150 - 450 05/31/2018 [facility] 10[facility]9/L 12:33 PM [facility] Specimen Anatomical Collection Method Collection Time Receive d Time (Source) Location / / Volume Laterality Blood specimen 05/31/2018 11:30 8 (specimen) AM CDT 12:30 PM CDT Timothy Smith MD LAB - BLOOD ORDERABLES Performing Organization Address City/State/ZIP Code Phon e Number M [facility] [address] [address] [facility] [address] [place] [address] [address], [place] [phone] (ABNORMAL) Basic metabolic panel (05/31/2018 11:30 AM CDT) P athologist Signature Sodium 140 133 - 144 05/31/2018 [place] mmol/L 12:50 PM [facility] Potassium 4.2 3.4 - 5.3 05/31/2018 [place] mmol/L 12:50 PM [facility] Chloride 104 94 - 109 05/31/2018 [place] mmol/L 12:50 PM [facility] Carbon Dioxide 29 20 - 32 05/31/2018 [place] mmol/L 12:50 PM [facility] Anion Gap 7 3 - 14 05/31/2018 [place] mmol/L 12:50 PM [facility] Glucose 119 (H) 70 - 99 05/31/2018 [place] mg/dL 12:50 PM [facility] Urea Nitrogen 27 7 - 30 05/31/2018 [place] mg/dL 12:50 PM [facility] Creatinine 1.20 0.66 - 05/31/2018 [place] 1.25 mg/dL 12:50 PM [facility] GFR Estimate 58 (L) >60 05/31/2018 [place] mL/min/1.7 12:[address] Comment: Non GFR Calc GFR Estimate If 71 >60 mL/min/1.7m2 05/31/2018 12:50 PM [facility] Comment: GFR Calc Calcium 9.1 8.5 - 10.1 mg/dL 05/31/2018 12:50 PM [facility] Specimen Anatomical Collection Method Collection Time Receive d Time (Source) Location / / Volume Laterality Blood specimen 05/31/2018 11:30 8 (specimen) AM CDT 12:30 PM CDT Timothy Smith MD LAB - BLOOD ORDERABLES Performing Organization Address City/State/ZIP Code Phon e Number M [facility] [address] [place] [address] [facility] [address] [place] [address], [facility] [phone] documented in this encounter Visit Diagnoses Diagnosis [...] Pre-procedure documented in this encounter Care Teams Slat Twister Relationship Specialty Start Date End Date [facility], [facility] PCP - General 01/16/18 07/01/18 [address] [place] [address] documented as of this encounter
--- OUTSIDE RECORDS SUMMARY | 2022-09-12 09:21 | XMS_ITS | Encounter Summary ---
:1940 Author Organization [place] Address [facility] [place] [address] Care Team Providers Name Role Phone Clinic, [facility] Primary Care Provider [phone] Reason for Visit Reason Onset Date Comments Results 05/08/2018 baseline Amio testin g/ BPM- order plaed for repeat BMP when in to see Edla due to r ising BUN Encounter Details Date Type Department Care Team Description 05/08/2018 Telephone [facility] Elda Johnson Results (baseline [facility] Shilpi Montoya APRN COLLECTION CARD CLERK testing/ BPM- order [address] [facility] [address] [facility] plaed for repeat BMP [facility] [address] [place] [address] [place] [address] due to rising BUN) [phone] Social History Tobacco Use Types Packs/Day Years [...] 09/28/2022 Office Visit Cardiology Timothy Smith MD [address] [place] [address] Trudi Grayson APRN COLLECTION CARD CLERK [address] [place] [address] 11/16/2022 Ancillary Procedure Cardiology Timothy Smith MD [address] [place] [address] (Wo rk) documented as of this encounter Results (ABNORMAL) Basic metabolic panel (05/21/2018 2:05 PM CDT) Analysis Performed At Patho logist Time Signature Sodium 141 136 - 145 05/21/2018 [facility] mmol/L 3:31 PM CDT [facility] Potassium 4.7 3.5 - 5.1 05/21/2018 [facility] mmol/L 3:31 PM CDT [facility] Chloride 101 98 - 107 05/21/2018 [facility] mmol/L 3:31 PM CDT [facility] Carbon Dioxide 31 (H) 23 - 29 05/21/2018 [facility] mmol/L 3:31 PM CDT [facility] Anion Gap 13.7 6 - 17 05/21/2018 [facility] mmol/L 3:31 PM CDT [facility] Glucose 154 (H) 70 - 105 05/21/2018 [facility] mg/dL 3:31 PM CDT [facility] A Urea Nitrogen 44 (H) 7 - 30 05/21/2018 [facility] mg/dL 3:31 PM CDT [facility] A Creatinine 2.03 (H) 0.70 - 05/21/2018 [facility] 1.30 mg/dL 3:31 PM CDT [facility] A GFR Estimate 32 (L) >60 05/21/2018 [facility] mL/min/1.7 3:31 PM CDT [facility] m2 A GFR Estimate If 39 (L) >60 05/21/2018 [facility] Black mL/min/1.7 3:31 PM CDT [facility] m2 A Calcium 10.3 8.5 - 10.5 05/21/2018 [facility] mg/dL 3:31 PM CDT [facility] A Specimen Anatomical Collection Method Collection Time Receive d Time (Source) Location / / Volume Laterality Blood specimen 05/21/2018 2:05 PM 018 2:07 (specimen) CDT PM CDT Elda Johnson APRN COLLECTION CARD CLERK LAB - BLOOD ORDERABL ES Performing Organization Address City/State/ZIP Code Phon e Number [facility] [address] [address] [address] documented in this encounter Visit Diagnoses Diagnosis CAD (coronary artery disease) - Primary Coronary atherosclerosis of unspecified type of vessel, hooper [place] or graft documented in this encounter Care Teams Director Life Sciences Relationship Specialty Start Date End Date Clinic, Vinny Jaimes PCP - General 01/16/18 07/01/18 [address] [place] [phone] documented as of this encounter
--- OUTSIDE RECORDS SUMMARY | 2022-09-12 09:21 | XMS_ITS | Encounter Summary ---
:1940 Author Organization [place] Address [facility] [place] [address] Care Team Providers Name Role Phone Clinic, [facility] Primary Care Provider [phone] Encounter Details Date Type Department Care Team Description 05/07/2018 Anesthesia Event [facility] Ryann Chino MD [facility] [address] [address] [facility] Ginger Santana, FLACO BOOM CRANE OPERATOR [address] [id number] [address] [place] [phone] Anesthesia Record Procedure Summary Procedure Name Responsible Anesthesia Start Anesthesia Stop Anesthesiologist Time Time ECHO CARDIOVERSION - Derek Chino, 05/07/18 0951 0958 ECHO DEPARTMENT Events Date Time Event Comment 05/07/2018 0951 An Start 0951 An Start Data 0951 Quick Note Diagnosis:atriaL fibrillation Procedure: Cardioversion Bean Sprout Grower:Dr Smith Location:[facility] PACU room 12 0952 An Induction 0958 [...] 0 105 by Airway Easy; Ginger Mclaughlin SOFTWARE QUALITY AUTOMATION ENGINEER Inpatient, Nurse BOOM CRANE OPERATOR documented in this encounter Social History Tobacco [...] for input(s): ABO, RH in the last 31905 hours. Recent Labs Lab Test 02/04/16 1203 02/27/13 1145 INR 1.00 2.66* Recent Labs Lab Test 02/03/16 0450 02/03/16 0140 02/02/16 2140 TROPI 0.395* 0.441* 0.407* No results for input(s): PH, PCO2, PO2, HCO3 in the last 65898 hours. No results for input(s): HCG in the last 66263 hours. Recent Results (from the past 744 [...] MD [address] [place] [phone] Trudi Grayson, FLACO SCHOOL ADJUSTMENT COUNSELOR [address] [address] 11/16/2022 Ancillary Procedure Cardiology Timothy Smith MD [address] [place] [address] (Wo rk) documented as of this encounter Visit Diagnoses Not on filedocumented in this encounter Administered Medications Inactive Administered Medications - up to 3 most recent administrations Medication Order MAR Action Action Date Dose Rate Site propofol (DIPRIVAN) injection 10 Given 05/07/2018 9:52 AM CDT 70 mg mg/mL vial PRN, Starting on Sun05/07/18 at 0952, Anesthesia Intra-op documented in this encounter Care Teams Photo Technologist Relationship Specialty Start Date End Date [facility], Vinny Jaimes PCP - General 01/16/18 07/01/18 [address] [place] [place] [phone] documented as of this encounter
--- OUTSIDE RECORDS SUMMARY | 2022-09-12 09:22 | XMS_ITS | Encounter Summary ---
:1940 Author Organization [place] Address [address] [place] [address] Care Team Providers Name Role Phone [facility] Care Provider [phone] Reason for Visit (Routine) - Closed Specialty Diagnoses / Procedures Referred By Contact Refer red To Contact Respiratory Therapy Diagnoses 05/01 Dr. Smith wanted patient to get in before the end of the week. Persistent Atrial Fibrillation. Rh Respiratory Ther Procedures PULMONARY FUNCTION TEST [address] [place] [address] Phone: Referral ID Status Reason Start Date Expiration Date Visits Requ ested Visits Authorized [id number] Closed 05/02/2018 05/02/2019 1 1 Encounter Details Date Type Department Care Team Description 05/02/2018 Hospital Encounter [facility] Timothy Smith MD On amiodarone therapy (Primary Dx); [facility] Respiratory [address] Persis tent atrial fibrillation (H) Therapy [address] [place] [address] [place], [place] [phone] [address] (Work) [phone] Social History Tobacco Use Types Packs/Day Years [...] to this report. REFERRING PHYSICIAN: Timothy Smith TIMBER HEWER: Guera Hinojosa DIAGNOSIS: Amiodarone Therapy, Atrial Fibrillation, [...] MD MT: TALIA Name: RADHA VILLA Account: [id number] : 1940 Procedure Date: 05/02/2018 Document: [id number] cc: [facility] Timothy Smith MD documented in this encounter Plan of Treatment Upcoming Encounters Date Type Specialty Care Team Description 09/28/2022 Lab Lab 09/28/2022 Office Visit Cardiology Timothy Smith MD [address] [place] [address] Trudi Grayson APRN CNC CUTTING OPERATOR [address] [address] 11/16/2022 Ancillary Procedure Cardiology Timothy Smith MD [address] [place] [id number] (Wo rk) Scheduled Orders Name Type Priority [...] MD MT: TALIA Name: RADHA VILLA Account: [id number] : 1940 Procedure Date: 05/02/20 Document: [id number] cc: [facility] Timothy Smith MD Julianna Vazquez MD PFT ORDERABLES Hemoglobin FUTURE anytime (05/02/2018 3:59 PM CDT) athologist Signature Hemoglobin 13.6 13.3 - 17.7 05/02/2018 [facility] g/dL 4:02 PM CDT HOSPITAL Specimen Anatomical Collection Method Collection Time Receive d Time (Source) Location / / Volume Laterality Blood specimen 05/02/2018 3:59 PM 018 4:00 (specimen) CDT PM CDT Timothy Smith MD LAB - BLOOD ORDERABLES Performing Organization Address City/State/ZIP Code Phon e Number [place] [address] [address] [address] [place] [address] [phone] General PFT Lab (Please always keep checked) (05/02/2018 3:23 PM CDT) athologist Signature FVC-Pred 3.67 L [place] PFT FVC-Pre 2.49 L [place] PFT FVC-%Pred-Pre 67 % [place] PFT FEV1-Pre 2.03 L [place] PFT FEV1-%Pred-Pre 74 % [place] PFT [id number] 72 % [place] PFT [id number] 81 % [place] PFT FEFMax-Pred 6.90 L/sec [place] PFT FEFMax-Pre 6.78 L/sec [place] PFT FEFMax-%Pred-Pr 98 % [place] PFT e [id number] 1.96 L/sec [place] PFT [id number] 2.06 L/sec [place] PFT LUG9922-%Pred-P 105 % [place] PFT re ExpTime-Pre 6.47 sec [place] PFT FIFMax-Pre 5.17 L/sec [place] PFT VC-Pred 4.23 L [place] PFT VC-Pre 2.56 L [place] PFT VC-%Pred-Pre 60 % [place] PFT IC-Pred 4.20 L [place] PFT IC-Pre 2.31 L [place] PFT IC-%Pred-Pre 55 % [place] PFT ERV-Pred 0.03 L [place] PFT ERV-Pre 0.25 L [place] PFT ERV-%Pred-Pre 830 % [place] PFT [id number] 76 % [place] PFT [id number] 81 % [place] PFT FRCPleth-Pred 3.68 L [...] [place] PFT VA-%Pred-Pre 69 % [place] PFT [id number] 65 % [place] PFT [id number] 79 % [facility] PFT Specimen (Source) Anatomical Collection Method Collection Time Re ceived Time Location / / Volume Laterality 05/02/2018 3:23 PM CDT Timothy Smith MD PFT ORDERABLES Performing Organization Address City/State/ZIP Code Phon e Number [facility] documented in this encounter Visit Diagnoses Diagnosis On amiodarone therapy - Primary Persistent atrial fibrillation (H) Atrial fibrillation documented in this encounter Care Teams Ribbing Machine Operator Relationship Specialty Start Date End Date [facility], [facility] PCP - General 01/16/18 07/01/18 [address] [place] [address] documented as of this encounter
--- OUTSIDE RECORDS SUMMARY | 2022-09-12 09:22 | XMS_ITS | Encounter Summary ---
:1940 Author Organization [place] Address [address] [place] [address] Care Team Providers Name Role Phone Clinic, [facility] Primary Care Provider [phone] Reason for Visit (Routine) - Closed Specialty Diagnoses / Procedures Referred By Contact Refer red To Contact Cardiology Diagnoses Per Sarah SOB (shortness of breath) Katelynn Cv Echocard Procedures ECH COMPLETE [address] [address] [place] [address] Phone: Referral ID Status Reason Start Date Expiration Date Visits Requ ested Visits Authorized [id number] Closed 01/17/2018 01/17/2019 1 1 Encounter Details Date Type Department Care Team Description 01/17/2018 Hospital Encounter [place] DallinAnkur Ramirez MD SOB (shortness of CV Echocardiography [address] breath) [address] [id number] [place] [address] [facility] [phone] [place] [address] (Work) [phone] Social History Tobacco Use Types Packs/Day Years [...] 09/28/2022 Office Visit Cardiology Ankur Smith MD [address] [place] [phone] Trudi Grayson APRN HANDBAG FRAMER [address] [address] 11/16/2022 Ancillary Procedure Cardiology Ankur Smith MD [address] [facility] [address] [place] [id number] (Wo rk) documented as of this encounter [...] AM CDT Narrative 01/17/2018 2:54 PM CDT [id number]^SARAH^ANKUR^ [facility] [address] [facility] [address] [place] [address] Name: RADHA VILLA : 1940 Study Date: 01/17/2018 09:58 AM Age: 77 yrs Gender: Male Patient Location: [facility] [place] Reason For Study: , [...] note might be different from the original. [id number]^SARAH^ANKUR^ [facility] [address] [facility] [address] [place] [address] Name: RADHA VILLA : 1940 Study Date: 01/17/2018 09:58 AM Age: 77 yrs Gender: Male Patient Location: [facility] [place] Reason For Study: , [...] dose documented in this encounter Care Teams Gyroscopic Engineering Technician Relationship Specialty Start Date End Date [facility], Vinny Arrieta PCP - General 01/16/18 07/01/18 [address] [place] [address] documented as of this encounter
--- OUTSIDE RECORDS SUMMARY | 2022-09-12 09:22 | XMS_ITS | Encounter Summary ---
:1940 Author Organization [place] Address [address] [facility] [place] [address] Care Team Providers Name Role Phone Clinic, [facility] Primary Care Provider [phone] Reason for Referral Diagnostic Imaging XR - Closed Specialty Diagnoses / Procedures Referred By Contact Refer red To Contact Radiology. Diagnoses Persistent atrial fibrillation (H) Timothy Smith MD Rh Xray Procedures XR Chest [address] [address] Phone: Fax: Referral ID Status Reason Start Date Expiration Date Visits Requ ested Visits Authorized [id number] Closed 05/02/2018 05/07/2019 1 1 Reason for Visit Diagnostic Imaging XR - Closed Specialty Diagnoses / Procedures Referred By Contact Refer red To Contact Radiology. Diagnoses Persistent atrial fibrillation (H) Timothy Smith MD Rh Xray Procedures XR Chest [address] [place] [address] [address] Phone: Fax: Referral ID Status Reason Start Date Expiration Date Visits Requ ested Visits Authorized [id number] Closed 05/02/2018 05/07/2019 1 1 Encounter Details Date Type Department Care Team Description 05/02/2018 Hospital Encounter [facility] Timothy Smith MD Persistent atrial [facility] [address] fibrillation (H) [address] [facility] [place] [address] Social History Tobacco Use Types Packs/Day [...] [address] [place] [address] Trudi Grayson, FLACO CARPENTER HELPER [address] [address] 11/16/2022 Ancillary Procedure Cardiology Timothy Smith MD [address] [place] [address] (Wo rk) documented as of this encounter [...] fibrillation documented in this encounter Care Teams Certified Legal Secretary Specialist Relationship Specialty Start Date End Date [facility], [facility] PCP - General 01/16/18 07/01/18 [address] [place] [address] documented as of this encounter
--- OUTSIDE RECORDS SUMMARY | 2022-09-12 09:22 | XMS_ITS | Encounter Summary ---
:1940 Author Organization [place] Address [facility] [place] [address] Care Team Providers Name Role Phone Clinic, [facility] Primary Care Provider [phone] Encounter Details Date Type Department Care Team Description 04/30/2018 Orders Only [facility], Lidya Crenshaw Per sergtent atrial Respiratory Therapy fibrillation (H) (Primary [address] Dx) [place] [address] Social History Tobacco Use Types Packs/Day [...] [address] [place] [address] Trudi Grayson, FLACO BOAT OAR MAKER [address] [place] [address] 11/16/2022 Ancillary Procedure Cardiology Timothy Smith MD [address] [place] [address] (Wo rk) Scheduled Orders Name Type Priority [...] [place] PFT FEV1-%Pred-Pre 74 % [place] [facility]FT [id number] 72 % [place] PFT [id number] 81 % [facility] PFT FEFMax-Pred 6.90 L/sec [place] PFT FEFMax-Pre 6.78 L/sec [place]ZE PFT FEFMax-%Pred-Pr 98 % [facility] PFT e [id number] 1.96 L/sec [place] PFT [id number]-Dbm 2.06 L/sec [place] PFT GGL8221-%Pred-P 105 % [place] PFT re ExpTime-Pre 6.47 sec [place]REE[place] PFT FIFMax-Pre 5.17 L/sec [place] PFT VC-Pred 4.23 L [place] PFT VC-Pre 2.56 L [place] PFT VC-%Pred-Pre 60 % [place] PFT IC-Pred 4.20 L [place] PFT IC-Pre 2.31 L [place] PFT IC-%Pred-Pre 55 % [facility] PFT ERV-Pred 0.03 L [place] PFT ERV-Pre 0.25 L [place] PFT ERV-%Pred-Pre 830 % [facility] PFT [id number] 76 % [facility] PFT [id number] 81 % [place] PFT FRCPleth-Pred 3.68 L [...] BREEZE PFT VA-%Pred-Pre 69 % [facility] PFT [id number] 65 % [facility] PFT [id number] 79 % [facility] PFT Specimen (Source) Anatomical Collection Method Collection Time Re ceived Time Location / / Volume Laterality 05/02/2018 3:23 PM CDT Timothy Smith MD PFT ORDERABLES Performing Organization Address City/State/ZIP Code Phon e Number [facility] PFT documented in this encounter Visit Diagnoses Diagnosis Persistent atrial fibrillation (H) - Ria jing Atrial fibrillation documented in this encounter Care Teams Head Of Sales Relationship Specialty Start Date End Date [place], Vinny Jaimes PCP - General 01/16/18 07/01/18 [address] [place] [phone] documented as of this encounter
--- OUTSIDE RECORDS SUMMARY | 2022-09-12 09:22 | XMS_ITS | Encounter Summary ---
:1940 Author Organization [place] Address [facility] [place] [address] Care Team Providers Name Role Phone Clinic, [facility] Primary Care Provider [phone] Reason for Referral - Closed Specialty Diagnoses / Procedures Referred By Contact Refer red To Contact Diagnoses SOB (shortness of breath) Ankur Smith MD [address] [place] [address] Referral ID Status Reason Start Date Expiration Date Visits Requ ested Visits Authorized [id number] Closed 01/23/2018 01/23/2019 1 1 V Testing - Closed Specialty Diagnoses / Procedures Referred By Contact Refer red To Contact Cardiology Diagnoses SOB (shortness of breath) Ankur Smith MD Zz[facility] Cardiac Test Rscc Procedures Holter Monitor 24 hour - Adult [address] [address] [place] [address] [address] [place] [address] Phone: Fax: Referral ID Status Reason Start Date Expiration Date Visits Requ ested Visits Authorized [id number] Closed 01/17/2018 01/23/2019 1 1 Reason for Visit Reason Comments Annual Visit f/u OV for AF - Closed Specialty Diagnoses / Procedures Referred By Contact Refer red To Contact Diagnoses Typical atrial flutter (H) Ankur Smith MD [address] [place] [address] Referral ID Status Reason Start Date Expiration Date Visits Requ ested Visits Authorized [id number] Closed 12/19/2017 12/19/2018 1 1 Encounter Details Date Type Department Care Team Description 01/16/2018 Office Visit [facility] Ankur Smith MD SOB (shortness of breath) (Primary Dx); [facility] [place] [address] Typical atrial flutter (H) [address] [facility] [address] [facility] [address] [place] [address] [place] [phone] Social History Tobacco Use Types Packs/Day Years [...] followup of atrial fibrillation. He is a [id number] male who had a pacemaker implanted for [...] MD MT: AISHWARYA Name: RADHA VILLA Account: [id number] : 1940 Service Date: 01/16/2018 Document: [id number] Ankur Smith MD - 01/16/2018 9:45 AM [...] MD [address] [place] [address] documented in this encounter Plan of Treatment Upcoming Encounters Date Type Specialty Care Team Description 09/28/2022 Lab Lab 09/28/2022 Office Visit Cardiology Ankur Smith MD [address] [place] [phone] Trudi Grayson, FLACO LABEL FOLDER [address] [place] [address] 11/16/2022 Ancillary Procedure Cardiology Ankur Smith MD [address] [place] [address] (Wo rk) Scheduled Referrals Name Type Priority [...] [facility] mmol/L 10:46 AM CDT [facility] Potassium 4.4 3.5 - 5.1 01/23/2018 [facility] mmol/L 10:46 AM CDT [facility] Chloride 101 98 - 107 01/23/2018 [facility] mmol/L 10:46 AM CDT [facility] Carbon Dioxide 29 23 - 29 01/23/2018 [facility] mmol/L 10:46 AM CDT [facility] Anion Gap 15.4 6 - 17 01/23/2018 [facility] mmol/L 10:46 AM CDT [facility] Glucose 152 (H) 70 - 105 01/23/2018 [facility] mg/dL 10:46 AM CDT [facility] Urea Nitrogen 27 7 - 30 01/23/2018 [facility] mg/dL 10:46 AM CDT [facility] A Creatinine 1.27 0.70 - 01/23/2018 [facility] 1.30 mg/dL 10:46 AM CDT [facility] A GFR Estimate 55 (L) >60 01/23/2018 [facility] mL/min/1.7 10:46 AM CDT [facility] m2 A GFR Estimate If 66 >60 01/23/2018 [facility] Black mL/min/1.7 10:46 AM CDT [facility] m2 A Calcium 10.1 8.5 - 10.5 01/23/2018 [facility] mg/dL 10:46 AM CDT [facility] A Specimen Anatomical Collection Method Collection Time Receive d Time (Source) Location / / Volume Laterality Blood specimen 01/23/2018 9:50 AM 018 9:51 (specimen) CDT AM CDT Ankur Smith MD LAB - BLOOD ORDERABLES Performing Organization Address City/[facility]/ZIP Code Phon e Number [facility] [address] [place] [address] [address] Holter Monitor 24 hour - Adult (01/21/2018 10:09 AM CDT) [facility] gist Method Time Signature Interpretation Click View RADIOLOGY Glove Sewer Image link RESULTS to view waveform and [...] flutter documented in this encounter Care Teams Bridge Instructor Relationship Specialty Start Date End Date Clinic, [place] PCP - General 01/16/18 07/01/18 [address] [facility] [place] [address] documented as of this encounter
--- OUTSIDE RECORDS SUMMARY | 2022-09-12 09:22 | XMS_ITS | Encounter Summary ---
:1940 Author Organization [place] Address [facility] [place] [address] Care Team Providers Name Role Phone Clinic, [facility] Primary Care Provider [phone] Reason for Visit CV Testing - Closed Specialty Diagnoses / Procedures Referred By Contact Refer red To Contact Cardiology Diagnoses Paroxysmal atrial fibrillation (H) Ischemic cardiomyopathy Mago Sotomayor, FLACO NETWORK COMMUNICATIONS ENGINEER Zz Cv Echocard Procedures ECHO COMPLETE WITH OPTISON Echocardiogram [address] [facility] [place] [phone] [facility] [address] [place] [phone] Phone: Referral ID Status Reason Start Date Expiration Date Visits Requ ested Visits Authorized [id number] Closed 04/23/2018 04/23/2019 1 1 Encounter Details Date Type Department Care Team Description 04/30/2018 Hospital Encounter [place] Mago Mina, P aroxysmal atrial fibrillation (H); CV Echocardiography ELECTRO OPTICAL ENGINEEREvaristo ROLLE Ischemic cardiomyopathy [address] [facility] [address] [...] Smith MD [address] [place] [address] Trudi Grayson APRN NETWORK COMMUNICATIONS ENGINEER [address] [place] [address] 11/16/2022 Ancillary Procedure Cardiology Timothy Smith MD [address] [place], [place] [address] (Wo rk) documented as of this encounter [...] AM CDT Narrative 04/30/2018 1:50 PM CDT [id number]^RESHMA^MAGO^Evaristo [facility] Heart Echocardiography Laboratory [address] [facility] [address] [place] [address] Name: RADHA VILLA : 1940 Study Date: 04/30/2018 11:04 AM Age: 77 yrs Gender: Male [place] [facility] For Study: , Paroxysmal atrial fi [...] note might be different from the original. [id number]^RESHMA^MAGO^Evaristo [facility] Heart Echocardiography Laboratory [address] [facility] [address] [place] [address] Name: RADHA VILLA : 1940 Study Date: 04/30/2018 11:04 AM Age: 77 yrs Gender: Male [place] [facility] Reason For Study: , Paroxysmal atrial fi [...] Pop Pham 04/30/2018 01:50 PM Mago Sotomayor ELECTRO OPTICAL ENGINEER NETWORK COMMUNICATIONS ENGINEER CV ECHO ORDERABLES documented in this encounter [...] On Sun04/30/18 at 1200, For 1 dose, [facility] [phone] documented in this encounter Care Teams Property Economist Relationship Specialty Start Date End Date [facility], Vinny Jaimes PCP - General 01/16/18 07/01/18 [address] [place] [phone] documented as of this encounter
--- OUTSIDE RECORDS SUMMARY | 2022-09-12 09:22 | XMS_ITS | Encounter Summary ---
:1940 Author Organization [place] Address [facility] [place] [address] Care Team Providers Name Role Phone Clinic, [facility] Primary Care Provider [phone] Encounter Details Date Type Department Care Team Description 05/07/2018 Hospital Encounter [facility] Timothy Smith MD [facility] PACU [address] [place] [address] [place] [address] [phone] (Wo rk) Social History Tobacco Use Types [...] MD [address] [place] [address] Trudi Grayson APRN SUPERVISOR PAINT DEPARTMENT [address] [place] [phone] 11/16/2022 Ancillary Procedure Cardiology Timothy Smith MD [address] [place] [phone] (Wo rk) documented as of this encounter Visit Diagnoses Not on filedocumented in this encounter Care Teams Machine Set Up Technician Relationship Specialty Start Date End Date Clinic, Vinny Jaimes PCP - General 01/16/18 07/01/18 [address] [place] [address] documented as of this encounter
--- OUTSIDE RECORDS SUMMARY | 2022-09-12 09:22 | XMS_ITS | Encounter Summary ---
:1940 Author Organization [place] Address [facility] [place] [address] Care Team Providers Name Role Phone Clinic, [facility] Primary Care Provider [phone] Reason for Referral - Closed Specialty Diagnoses / Procedures Referred By Contact Refer red To Contact Diagnoses Atrial fibrillation (H) [facility] [address] [facility] [address] [place] [address] Referral ID Status Reason Start Date Expiration Date Visits Requ ested Visits Authorized [id number] Closed 04/25/2018 04/25/2019 1 1 Reason for Visit Reason Onset Date Comments Clinic Care Coordination - Follow-up 01/24/2018 Encounter Details Date Type Department Care Team Description 01/24/2018 Telephone [facility] Aravind Fierro [facility] [place] V[place] RN Coordination - [address] [facility] Follow-up [facility] [address] [place] [address] Social History Tobacco Use Types Packs/Day [...] MD [address] [place] [address] Trudi Grayson APRN LEATHER COLORER [address] [place] [address] 11/16/2022 Ancillary Procedure Cardiology Timothy Smith MD [address] [place] [address] (Wo rk) Scheduled Referrals Name Type Priority Associated Diagnoses Order S chedule Follow-Up with Referral Routine Atrial fibrillation Expect ed: Cmv Driver (H) 04/25/20 18 (Approximate), Expires: 01/24/2020 documented as of this encounter Visit Diagnoses Diagnosis Atrial fibrillation (H) - Primary Atrial fibrillation documented in this encounter Care Teams Procurement Professional Logistics Relationship Specialty Start Date End Date Clinic, Vinny Jaimes PCP - General 01/16/18 07/01/18 [address] [place] [phone] documented as of this encounter
--- OUTSIDE RECORDS SUMMARY | 2022-09-12 09:22 | XMS_ITS | Encounter Summary ---
:1940 Author Organization [place] Address [facility] [place] [address] Care Team Providers Name Role Phone [facility] Provider [phone] Encounter Details Date Type Department Care Team Description 02/22/2018 [facility] Heart Count Includes [facility] emic cardiomyopathy Clinic [address] [place] [address] Social History Tobacco Use [...] Visit Cardiology Timothy Smith MD [address] [place] [phone] Trudi Grayson APRN STEEL DIVISION SUPERVISOR [address] [place] [address] [phone] 11/16/2022 Ancillary Procedure Cardiology Timothy Smith MD [address] [place] [phone] (Wo rk) documented as of this encounter Procedures Procedure Name Priority Date/Time Associated Diagnosis Comme nts BASIC METABOLIC Routine 02/22/2018 9:11 AM Ischemic cardiomyop athy Results for this PANEL CDT procedure are i n the results section. documented in this encounter Results (ABNORMAL) Basic metabolic panel (02/22/2018 9:11 AM CDT) athologist Signature Sodium 143 133 - 144 02/22/2018 [place] mmol/L 10:15 AM [facility] Potassium 4.2 3.4 - 5.3 02/22/2018 [place] mmol/L 10:15 AM [facility] Chloride 108 94 - 109 02/22/2018 [place] mmol/L 10:15 AM [facility] Carbon Dioxide 30 20 - 32 02/22/2018 [place] mmol/L 10:15 AM [facility] Anion Gap 5 3 - 14 02/22/2018 [place] mmol/L 10:15 AM [facility] Glucose 151 (H) 70 - 99 02/22/2018 [place] mg/dL 10:15 AM [facility] Urea Nitrogen 30 7 - 30 02/22/2018 [place] mg/dL 10:15 AM [facility] Creatinine 1.17 0.66 - 02/22/2018 [place] 1.25 mg/dL 10:15 AM [facility] GFR Estimate 60 (L) >60 02/22/2018 [place] mL/min/1.7 10:[address] Comment: Non GFR Calc GFR Estimate If 73 >60 mL/min/1.7m2 02/22/2018 10:[address] [facility] Comment: GFR Calc Calcium 9.1 8.5 - 10.1 mg/dL 02/22/2018 10:15 AM [facility] Specimen Anatomical Collection Method Collection Time Receive d Time (Source) Location / / Volume Laterality Blood specimen 02/22/2018 9:11 AM 018 9:17 (specimen) CDT [facility] Mago Sotomayor APRN STEEL DIVISION SUPERVISOR LAB - BLOOD ORDERABLES Performing Organization Address City/State/ZIP Code Phon e Number M [facility] [address] [address] [facility] [address] [address] [facility] [phone] documented in this encounter Visit Diagnoses Diagnosis Ischemic cardiomyopathy Other specified forms of chronic ischemi c heart disease documented in this encounter Care Teams College Football Coach Relationship Specialty Start Date End Date Clinic, Vinny Jaimes PCP - General 01/16/18 07/01/18 [address] [place] [phone] documented as of this encounter
--- OUTSIDE RECORDS SUMMARY | 2022-09-12 09:22 | XMS_ITS | Encounter Summary ---
:1940 Author Organization [place] Address [address] [facility] [place] [address] Care Team Providers Name Role Phone Clinic, [facility] Primary Care Provider [phone] Reason for Referral - Closed Specialty Diagnoses / Procedures Referred By Contact Refer red To Contact Diagnoses Paroxysmal atrial fibrillation (H) Ischemic cardiomyopathy Mago Sotomayor APRN CNP [address] [place] [address] Referral ID Status Reason Start Date Expiration Date Visits Requ ested Visits Authorized [id number] Closed 04/23/2018 04/23/2019 1 1 Reason for Visit Reason Comments Follow Up Holter /Echo - Closed Specialty Diagnoses / Procedures Referred By Contact Refer red To Contact Diagnoses SOB (shortness of breath) Timothy Smith MD [address] [place] [address] Referral ID Status Reason Start Date Expiration Date Visits Requ ested Visits Authorized [id number] Closed 01/23/2018 01/23/2019 1 1 Encounter Details Date Type Department Care Team Description 01/23/2018 Office Visit [facility] Timothy Smith MD [address] [place] [id number] Ischemic cardiomyopathy (Primary Dx); Heart Clinic Mago Kessler, HIGHWAY ENGINEERING TEACHER HOSPITAL PLAN ADMINISTRATOR [address] [place] [phone] Paroxysmal atrial fibrillation (H); [address] [facility] [address] SOB (shor tness of breath); [address] 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 He is followed by Dr. Simth. In 11/2016, his losartan was discontinued and [...] Angiogram was completed 01/2016. 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 His [...] proceed with cardioversion to see if the congregational of atrial kick helps improve his EF. [...] NP MT: AISHWARYA Name: RADHA VILLA Account: [id number] : 1940 Service Date: 01/23/2018 Document: [id number] Mago Keating APRN CNP - 01/23/2018 11:00 AM CDT HPI and Plan: #[id number] See dictation Orders Placed This Encounter Procedures [...] Psych: Alert and Oriented x 3 CC [facility] [address] [place] [address] Electronically signed by Mago Keating, HIGHWAY ENGINEERING TEACHER HOSPITAL PLAN ADMINISTRATOR at 01/23/2018 4:33 PM CDT documented in this encounter Plan of Treatment Upcoming Encounters Date Type Specialty Care Team Description 09/28/2022 Lab Lab 09/28/2022 Office Visit Cardiology Timothy Smith MD [address] [place] [phone] Trudi Grayson APRN HOSPITAL PLAN ADMINISTRATOR [address] [address] 11/16/2022 Ancillary Procedure Cardiology Timothy Smith MD [address] [place] [phone] (Wo rk) Scheduled Referrals Name Type Priority Associated Diagnoses Order S chedule Follow-Up with Referral Routine Paroxysmal atrial Expected : Biomathematician fibrillation (H) 04/23/2018 Ischemic cardiomyopathy ([place] ro[place]), Expires: 01/23/2019 documented as of this encounter Results (ABNORMAL) Basic metabolic panel (02/22/2018 9:11 AM CDT) P athologist Signature Sodium 143 133 - 144 02/22/2018 [place] mmol/L 10:15 AM [facility] Potassium 4.2 3.4 - 5.3 02/22/2018 [facility] mmol/L 10:15 AM [facility] Chloride 108 94 - 109 02/22/2018 [facility] mmol/L 10:15 AM [facility] Carbon Dioxide 30 20 - 32 02/22/2018 [facility] mmol/L 10:15 AM [facility] Anion Gap 5 3 - 14 02/22/2018 [facility] mmol/L 10:15 AM [facility] Glucose 151 (H) 70 - 99 02/22/2018 [facility] mg/dL 10:15 AM [facility] Urea Nitrogen 30 7 - 30 02/22/2018 [facility] mg/dL 10:15 AM [facility] Creatinine 1.17 0.66 - 02/22/2018 [facility] 1.25 mg/dL 10:15 AM [facility] GFR Estimate 60 (L) >60 02/22/2018 [facility] mL/min/1.7 10:[address] Comment: Non GFR Calc GFR Estimate If 73 >60 mL/min/1.7m2 02/22/2018 10:15 AM [facility] Comment: GFR Calc Calcium 9.1 8.5 - 10.1 mg/dL 02/22/2018 10:15 AM [facility] Specimen Anatomical Collection Method Collection Time Receive d Time (Source) Location / / Volume Laterality Blood specimen 02/22/2018 9:11 AM 018 9:17 (specimen) CDT AM T Mago N [address] ENGINEERING TEACHER HOSPITAL PLAN ADMINISTRATOR LAB - BLOOD ORDERABLES Performing Organization Address City/State/ZIP Code Phon e Number M [facility] [address] [place], [place] [address] [facility] [address] [place], [place] [address] [place] [address] documented in this encounter Visit Diagnoses Diagnosis Ischemic cardiomyopathy - Primary Other specified forms of chronic ischemi c heart disease Paroxysmal atrial fibrillation (H) Atrial fibrillation SOB (shortness of breath) Shortness of breath 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
--- OUTSIDE RECORDS SUMMARY | 2022-09-12 09:22 | XMS_ITS | Encounter Summary ---
:1940 Author Organization [place] Address [facility] [place] [address] Care Team Providers Name Role Phone Clinic, [facility] Primary Care Provider [phone] for Visit Reason Comments Pacemaker Check Annual Threshold Check Encounter Details Date Type Department Care Team Description 01/16/2018 Allied Health[facility]Nurse [facility] Pac emaker Check (Annual Visit Heart Clinic [place] Threshold Check) [address] [place] [address] [address] [place] [phone] Social History Tobacco Use Types Packs/Day Years Used Date Smoking Tobacco: Never Smokeless Tobacco: Never Alcohol Use Standard Drinks/Week Comments No 0 (1 standard drink = 0.6 oz pure alcoho l) Sex Assigned at Date Recorded Not on file documented as of this encounter Progress Notes Lula Pa RN - 01/16/2018 11:00 AM CDT [employer] EL L121 Pacemaker Device Check AP: o % SHIP SUPERINTENDENT: 14 % Mode: VVIR 60-130 bpm Underlying [...] [address] [place], [place] [address] Trudi Grayson, WOOD COATER CARD CLEANER [address] [place] [address] 11/16/2022 Ancillary Procedure Cardiology Timothy Smith MD [address] [place] [phone] (Wo rk) documented as of this encounter Procedures Procedure Name Priority Date/Time Associated Diagnosis Comme nts HC PM DEVICE PROGRAMMING EVAL, Routine 01/16/2018 Cardiac pa cemaker in situ DUAL LEAD PACER documented in this encounter Results PM DEVICE PROGRAMMING EVAL, DUAL LEAD PACER ([id number]) (01/16/2018) Narrative This result has an attachment that is no t available. Timothy Smith MD PROCEDURES documented in this encounter Visit Diagnoses Diagnosis Cardiac pacemaker in situ - Primary documented in this encounter Care Teams Adjunct Psychology Professor Relationship Specialty Start Date End Date [facility], [facility] PCP - General 01/16/18 07/01/18 [address] [place] [phone] documented as of this encounter
--- OUTSIDE RECORDS SUMMARY | 2022-09-12 09:22 | XMS_ITS | Encounter Summary ---
:1940 Author Organization [place] Address [address] [facility] [place] [address] Care Team Providers Name Role Phone Graham Licona MD Primary Care Provider Reason for Visit Reason Onset Date Comments Medication Question 01/04/2018 Eliquis Encounter Details Date Type Department Care Team Description 01/04/2018 Telephone [facility] Heart Lacy [place] M edication Question Clinic [place] RN (Eliquis) [address] [facility] [address] [place] [address] Social History [...] supply of Eliquis 5mg placed at front man of [facility] for pt spanish moss picker. Chu EL Telephone Encounter - Lacy [place] RN - 01/04/2018 1:58 PM CDT Pt LM requesting samples of Eliquis, as he will run out before his medications come in the mail. Will message nurse in [facility] to set out a couple of boxes for pt to spanish moss picker today if possible. Jing documented in this encounter Plan of Treatment Upcoming Encounters Date Type Specialty Care Team Description 09/28/2022 Lab Lab 09/28/2022 Office Visit Cardiology Timothy Smith MD [address] [place] [id number] Trudi Grayson, FLACO LINING REPAIRER [address] [place] [id number] 11/16/2022 Ancillary Procedure Cardiology Timothy Smith MD [address] [place] [id number] (Wo rk) documented as of this encounter Visit Diagnoses Not on filedocumented in this encounter Care Teams Scheduling Specialist Relationship Specialty Start Date End Date Graham Licona MD PCP - General Family Practice 04/13/17 01/15/18 [facility] [address] [place] [address] documented as of this encounter
--- OUTSIDE RECORDS SUMMARY | 2022-09-12 09:22 | XMS_ITS | Encounter Summary ---
:1940 Author Organization [place] Address [address] [place] [address] Care Team Providers Name Role Phone Clinic, [facility] Primary Care Provider [phone] Reason for Referral CV Testing - Closed Specialty Diagnoses / Procedures Referred By Contact Refer red To Contact Diagnoses Persistent atrial fibrillation (H) Ankur Smith MD Procedures Cardioversion [address] [place] [address] Referral ID Status Reason Start Date Expiration Date Visits Requ ested Visits Authorized [id number] Closed 05/07/2018 05/07/2019 1 1 Reason for Visit CV Testing - Closed Specialty Diagnoses / Procedures Referred By Contact Refer red To Contact Diagnoses Persistent atrial fibrillation (H) Ankur Smith MD Procedures Cardioversion [address] [place] [address] Referral ID Status Reason Start Date Expiration Date Visits Requ ested Visits Authorized [id number] Closed 05/07/2018 05/07/2019 1 1 Encounter Details Date Type Department Care Team Description 05/07/2018 Hospital Encounter [facility] Ankur Smith MD Persistent atrial [place] [facility] [address] fibrillation (H) [address] [place] [address] [phone] Social History Tobacco Use Types Packs/Day Years [...] followup next week at the clinic with MANAGING JEWELER. He will set up appt. documented in [...] performed under deep sedation assisted by the field supervisor. The patches were placed in anterior and posterior fashion. A single shock of 200 joules successf ully converted to sinus rhythm. He had short runs of atrial fibrillation and atrial flutter post-cardioversion. There was no complication. ANKUR SMIHT MD MT: CC Name: RADHA VILLA MRN: [id number] Account: [id number] : 1940 Procedure Date: 05/07/2018 Document: [id number] documented in this encounter Plan of Treatment Upcoming Encounters Date Type Specialty Care Team Description 09/28/2022 Lab Lab 09/28/2022 Office Visit Cardiology Ankur Smith MD [address] [place] [address] Trudi Grayson APRN MEDICAL AND SCIENTIFIC ILLUSTRATOR [address] [address] 11/16/2022 Ancillary Procedure Cardiology Ankur Smith MD [address] [place] [address] (Wo rk) Scheduled Orders Name Type Priority [...] Glucose 162 (H) 70 - 99 05/07/2018 [place] mg/dL 9:[address] [facility] Specimen Anatomical Collection Method Collection Time Receive d Time (Source) Location / / Volume Laterality Blood specimen 05/07/2018 8:58 AM 018 9:13 (specimen) CDT AM CDT Serge De Leon MD LAB - BLOOD ORDERABLES Performing Organization Address City/State/ZIP Code Phon e Number M [facility] [address] [place] [address] [facility] [address] [place] [address], [place] [phone] Potassium level (05/07/2018 8:58 AM CDT) P athologist Signature Potassium 3.7 3.4 - 5.3 05/07/2018 [place] mmol/L 9:[address] [facility] Specimen Anatomical Collection Method Collection Time Receive d Time (Source) Location / / Volume Laterality Blood specimen 05/07/2018 8:58 AM 018 9:13 (specimen) CDT AM CDT Ankur Smith MD LAB - BLOOD ORDERABLES Performing Organization Address City/State/ZIP Code Phon e Number M [facility] [address] [place] [address] [phone] [facility] [address] [place] [address], [place] [phone] Magnesium level (05/07/2018 8:58 AM CDT) P athologist Signature Magnesium 1.7 1.6 - 2.3 05/07/2018 [place] mg/dL 9:[address] [facility] Specimen Anatomical Collection Method Collection Time Receive d Time (Source) Location / / Volume Laterality Blood specimen 05/07/2018 8:58 AM 018 9:13 (specimen) CDT AM CDT Ankur Smith MD LAB - BLOOD ORDERABLES Performing Organization Address City/State/ZIP Code Phon e Number M [facility] [address] [place] [address] [phone] [facility] [address] [place] [address], U [phone] documented in this encounter Visit Diagnoses Diagnosis [...] Pre-procedure documented in this encounter Care Teams Coyote Hunter Relationship Specialty Start Date End Date Clinic, [facility] PCP - General 01/16/18 07/01/18 [address] [place] [phone] documented as of this encounter
--- OUTSIDE RECORDS SUMMARY | 2022-09-12 09:22 | XMS_ITS | Encounter Summary ---
:1940 Author Organization [place] Address [facility] [place] [address] Care Team Providers Name Role Phone Clinic, [facility] Primary Care Provider [phone] Reason for Referral - Closed Specialty Diagnoses / Procedures Referred By Contact Refer red To Contact Diagnoses Persistent atrial fibrillation (H) Ankur Smith MD [address] [place] [address] Referral ID Status Reason Start Date Expiration Date Visits Requ ested Visits Authorized [id number] Closed 07/04/2018 07/04/2019 1 1 iagnostic Imaging XR - Closed Specialty Diagnoses / Procedures Referred By Contact Refer red To Contact Radiology. Diagnoses Persistent atrial fibrillation (H) Ankur Smith MD Rh Xray Procedures XR Chest [address] [place] [address] [place] [address] Phone: Fax: Referral ID Status Reason Start Date Expiration Date Visits Requ ested Visits Authorized [id number] Closed 05/02/2018 05/07/2019 1 1 V Testing - Closed Specialty Diagnoses / Procedures Referred By Contact Refer red To Contact Diagnoses Persistent atrial fibrillation (H) Ankur Smith MD Procedures Cardioversion [address] [place] [address] Referral ID Status Reason Start Date Expiration Date Visits Requ ested Visits Authorized [id number] Closed 05/07/2018 05/07/2019 1 1 Reason for Visit Reason Comments Results echo for review - Closed Specialty Diagnoses / Procedures Referred By Contact Refer red To Contact Diagnoses Paroxysmal atrial fibrillation (H) Ischemic cardiomyopathy Mago Sotomayor, FLACO WOOD TURNING LATHE OPERATOR [address] [place] [address] Referral ID Status Reason Start Date Expiration Date Visits Requ ested Visits Authorized [id number] Closed 04/23/2018 04/23/2019 1 1 Encounter Details Date Type Department Care Team Description 04/30/2018 Office Visit [facility] Mago Sotomayor, FLACO WOOD TURNING LATHE OPERATOR [address] [place] [phone] Persistent atrial fibrillation (H) (Prim arnie Dx); Heart Clinic Ankur Beauchamp MD [address] [place] [address] Paroxysmal atrial fibrillation (H); [address] [facility] Ischemic cardiomyopathy [place] [address] [place] [phone] Social History Tobacco Use Types Packs/Day Years [...] patient will have baseline amiodarone testing in [place]. cc: [address] [place] [address] [address] ANKUR SMITH MD MT: MANDIE Name: RADHA VILLA Account: [id number] : 1940 Service Date: 04/30/2018 Document: [id number] Ankur Smith MD - 04/30/2018 2:15 PM CDT HPI and Plan: See dictation Orders Placed This Encounter Procedures ??? XR Chest 1 View ??? Basic metabolic panel ??? Hepatic panel ??? TSH ??? Follow-Up with Rd Scientist ??? EKG 12-lead complete w/read (Future)- to [...] Muscular Skeletal: Neurological: Psych: CC Mago Keating, VINEGAR MAKER WOOD TURNING LATHE OPERATOR [address] [facility] [address] [place] [address] Ankur Smith MD - 04/30/2018 2:15 PM CDT HPI and Plan: See dictation Orders Placed This Encounter Procedures ??? XR Chest 1 View ??? Basic metabolic panel ??? Hepatic panel ??? TSH ??? Follow-Up with Rd Scientist ??? EKG 12-lead complete w/read (Future)- to [...] Muscular Skeletal: Neurological: Psych: CC Mago Keating, VINEGAR MAKER WOOD TURNING LATHE OPERATOR [address] [place] [address] documented in this encounter Plan of Treatment Upcoming Encounters Date Type Specialty Care Team Description 09/28/2022 Lab Lab 09/28/2022 Office Visit Cardiology Ankur Smith MD [address] [place], [place] [address] Trudi Grayson, VINEGAR MAKER WOOD TURNING LATHE OPERATOR [address] [place] [phone] 11/16/2022 Ancillary Procedure Cardiology Ankur Smith MD [address] [place] [address] (Wo rk) Scheduled Orders Name Type Priority Associated Diagnoses Order S chedule Cardioversion Echocardiography Routine Persistent atrial Expec star: 05/07/2018 fibrillation (H) (Approximat e), Expires: 2018 Scheduled Referrals Name Type Priority Associated Diagnoses Order S chedule Follow-Up with Referral Routine Persistent atrial Expected : Rd Scientist fibrillation (H) 12/2017 (Approximate), Expires: 04/30/2019 documented as of this encounter Results EKG 12-lead complete w/read (Future)- to be scheduled (07/02/2018 9:53 AM CDT) Narrative This result has an attachment that is no t available. Ankur Smith MD ECG ORDERABLES TSH (05/03/2018 9:58 AM CDT) P athologist Signature TSH 3.79 0.40 - 4.00 05/03/2018 [facility] mU/L 10:39 AM CDT HOSPITAL Specimen Anatomical Collection Method Collection Time Receive d Time (Source) Location / / Volume Laterality Blood specimen 05/03/2018 9:58 AM 018 9:59 (specimen) CDT AM CDT Ankur Smith MD LAB - BLOOD ORDERABLES Performing Organization Address City/[facility] Phon e Number [place] [facility] [address] [place], [place] [address] [facility] [address] [place] [address], [facility] [phone] (ABNORMAL) Hepatic panel (05/03/2018 9:58 AM CDT) Analysis Performed At Patho logist Time Signature Bilirubin Direct 0.4 (H) 0.0 - 0.2 05/03/2018 [place] mg/dL 10:33 AM [facility] Bilirubin Total 1.0 0.2 - 1.3 05/03/2018 [place] mg/dL 10:33 AM [facility] Albumin 3.7 3.4 - 5.0 05/03/2018 [place] g/dL 10:33 AM [facility] Protein Total 7.9 6.8 - 8.8 05/03/2018 [place] g/dL 10:33 AM [facility] Alkaline 29 (L) 40 - 150 05/03/2018 [place] Phosphatase U/L 10:33 AM [facility] ALT 31 0 - 70 U/L 05/03/2018 [place] 10:33 AM [facility] AST 25 0 - 45 U/L 05/03/2018 [place] 10:33 AM [facility] Specimen Anatomical Collection Method Collection Time Receive d Time (Source) Location / / Volume Laterality Blood specimen 05/03/2018 9:58 AM 018 9:59 (specimen) CDT AM CDT Ankur Smith MD LAB - BLOOD ORDERABLES Performing Organization Address City/[facility] Phon e Number M [facility] [address] [place], [place] [address] [facility] [address] [place] [address] [phone] (ABNORMAL) Basic metabolic panel (05/03/2018 9:58 AM CDT) P athologist Signature Sodium 138 133 - 144 05/03/2018 [place] mmol/L 10:33 AM [facility] Potassium 4.5 3.4 - 5.3 05/03/2018 [place] mmol/L 10:33 AM [facility] Chloride 100 94 - 109 05/03/2018 [place] mmol/L 10:33 AM [facility] Carbon Dioxide 31 20 - 32 05/03/2018 [place] mmol/L 10:33 AM [facility] Anion Gap 7 3 - 14 05/03/2018 [place] mmol/L 10:33 AM [facility] Glucose 150 (H) 70 - 99 05/03/2018 [place] mg/dL 10:33 AM [facility] Urea Nitrogen 34 (H) 7 - 30 05/03/2018 [place] mg/dL 10:33 AM [facility] Creatinine 1.25 0.66 - 05/03/2018 [place] 1.25 mg/dL 10:33 AM [facility] GFR Estimate 56 (L) >60 05/03/2018 [place] mL/min/1.7 10:[address] Comment: Non GFR Calc GFR Estimate If 67 >60 mL/min/1.7m2 05/03/2018 10:33 AM [facility] Comment: GFR Calc Calcium 9.2 8.5 - 10.1 mg/dL 05/03/2018 10:33 AM [facility] Specimen Anatomical Collection Method Collection Time Receive d Time (Source) Location / / Volume Laterality Blood specimen 05/03/2018 9:58 AM 018 9:59 (specimen) CDT AM T Ankur Smith MD LAB - BLOOD ORDERABLES Performing Organization Address City/State/ZIP Code Phon e Number M [facility] [address] [place], [place] [address] [facility] [address] [place], [place] [address] [phone] XR Chest 1 View (05/02/2018 4:14 PM [...] COMPARISON: Chest x-ray 02/04/2016. Procedure Note Lani Choa MD - 05/03/2018Form atting of this note [...] fibrillation documented in this encounter Care Teams It Communications Specialist Relationship Specialty Start Date End Date [facility], [facility] PCP - General 01/16/18 07/01/18 [address] [place] [address] documented as of this encounter
--- OUTSIDE RECORDS SUMMARY | 2022-09-12 09:22 | XMS_ITS | Encounter Summary ---
:1940 Author Organization [place] Address [facility] [place] [address] Care Team Providers Name Role Phone Clinic, [facility] Primary Care Provider [phone] Reason for Visit Reason Comments Pacemaker Check PPM Latitude NXT Encounter Details Date Type Department Care Team Description 04/24/2018 Allied Health/Nurse [facility] Pac emaker Check (PPM Visit [facility] [place] Latitude NXT) [address] [place] [address] [address] [place] [address] Social History Tobacco Use Types Packs/Day Years Used Date Smoking Tobacco: Never Smokeless Tobacco: Never Alcohol Use Standard Drinks/Week Comments No 0 (1 standard drink = 0.6 oz pure alcoho l) Sex Assigned at Date Recorded Not on file documented as of this encounter Progress Notes Sary Riojas - 04/24/2018 3:30 PM CDT [employer] Essentio EL L121 (S) Remote PPM Device Check MAINTENANCE ENGINEER: 26% Mode: VVIR Presenting Rhythm: MAINTENANCE ENGINEER & VS Heart Rate: vent rates 60 [...] [address] [place] [address] Trudi Grayson, FLACO CLOTH MERCERIZER OPERATOR [address] [address] 11/16/2022 Ancillary Procedure Cardiology Timothy Smith MD [address] [place] [id number] (Wo rk) documented as of this encounter [...] encounter Results INTERROGATION DEVICE EVAL REMOTE, PACER/ICD (78548) (04/24/2018) Narrative This result has an attachment that is no t available. Basil Guadalupe MD PROCEDURES documented in this encounter Visit Diagnoses Diagnosis Cardiac pacemaker in situ - Primary documented in this encounter Care Teams Residential Mortgage Underwriter Relationship Specialty Start Date End Date Clinic, [facility] PCP - General 01/16/18 07/01/18 [address] [place] [place] [address] documented as of this encounter
--- OUTSIDE RECORDS SUMMARY | 2022-09-12 09:22 | XMS_ITS | Encounter Summary ---
:1940 Author Organization [place] Address [facility] [place] [address] Care Team Providers Name Role Phone Clinic, [facility] Primary Care Provider [phone] Reason for Referral CV Testing - Closed Specialty Diagnoses / Procedures Referred By Contact Refer red To Contact Cardiology Diagnoses SOB (shortness of breath) Timothy Smith MD Zzdomitila Cardiac Test [facility] Procedures Holter Monitor 24 hour - Adult [address] [address] [place] [address] [address] [place] [address] Phone: Fax: Referral ID Status Reason Start Date Expiration Date Visits Requ ested Visits Authorized [id number] Closed 01/17/2018 01/23/2019 1 1 Reason for Visit CV Testing - Closed Specialty Diagnoses / Procedures Referred By Contact Refer red To Contact Cardiology Diagnoses SOB (shortness of breath) Timothy Smith MD Zzrh Cardiac Test Rs Procedures Holter Monitor 24 hour - Adult [address] [address] [place] [address] [address] [place] [address] Phone: Fax: Referral ID Status Reason Start Date Expiration Date Visits Requ ested Visits Authorized [id number] Closed 01/17/2018 01/23/2019 1 1 Encounter Details Date Type Department Care Team Description 01/21/2018 Hospital Encounter [place] [facility] Timothy Smith MD SOB ([facility] [address] breath) [address] [facility] [address] [place] [address] [place] [phone] [address] (Work) [phone] Social History Tobacco Use Types Packs/Day Years [...] MD [address] [place] [address] Trudi Grayson APRN DROP WIRE BUILDER [address] [address] 11/16/2022 Ancillary Procedure Cardiology Timothy Smith MD [address] [place] [address] (Wo rk) documented as of this encounter Procedures Procedure Name Priority Date/Time Associated Diagnosis Comme nts HOLTER MONITOR 24 Routine 01/21/2018 10:09 AM SOB (shortness o f Results for this HOUR - ADULT CDT breath) procedure are i n the results section. documented in this encounter Results Holter Monitor 24 hour - Adult (01/21/2018 10:09 AM CDT) [facility] gist Method Time Signature Interpretation Click View RADIOLOGY Angle Shearer Image link RESULTS to view waveform and [...] breath documented in this encounter Care Teams Furniture Rental Consultant Relationship Specialty Start Date End Date [facility] PCP - General 01/16/18 07/01/18 [address] [place] [address] documented as of this encounter
--- OUTSIDE RECORDS SUMMARY | 2022-09-12 09:22 | XMS_ITS | Encounter Summary ---
:1940 Author Organization [place] Address [facility] [address] Care Team Providers Name Role Phone [facility] [place] Primary Care Provider [phone] Encounter Details Date Type Department Care Team Description 05/03/2018 Orders Only [facility] Heart Isch emic cardiomyopathy; [facility] Persistent atrial fibrillati on (H) [address] [place] [address] Social History Tobacco Use Types Packs/Day [...] [address] [place] [phone] Trudi Grayson APRN METEOROLOGY FACULTY MEMBER [address] [place] [address] 11/16/2022 Ancillary Procedure Cardiology Timothy Smith MD [address] [place] [id number] (Wo rk) documented as of this encounter [...] Signature TSH 3.79 0.40 - 4.00 05/03/2018 [facility] mU/L 10:39 AM CDT HOSPITAL Specimen Anatomical Collection Method Collection Time Receive d Time (Source) Location / / Volume Laterality Blood specimen 05/03/2018 9:58 AM 018 9:59 (specimen) CDT AM CDT Timothy Smith MD LAB - BLOOD ORDERABLES Performing Organization Address City/State/ZIP Code Phon e Number [place] [address] [address] [facility] [address] [phone] (ABNORMAL) Hepatic panel (05/03/2018 9:58 AM CDT) Analysis Performed At Patho logist Time Signature Bilirubin Direct 0.4 (H) 0.0 - 0.2 05/03/2018 [place] mg/dL 10:33 AM [facility] Bilirubin Total 1.0 0.2 - 1.3 05/03/2018 [place] mg/dL 10:33 AM [facility] Albumin 3.7 3.4 - 5.0 05/03/2018 [place] g/dL 10:33 AM [facility] Protein Total 7.9 6.8 - 8.8 05/03/2018 [place] g/dL 10:33 AM [facility] Alkaline 29 (L) 40 - 150 05/03/2018 [place] Phosphatase U/L 10:33 AM [facility] ALT 31 0 - 70 U/L 05/03/2018 [place] 10:33 AM [facility] AST 25 0 - 45 U/L 05/03/2018 [facility] 10:33 AM [facility] Specimen Anatomical Collection Method Collection Time Receive d Time (Source) Location / / Volume Laterality Blood specimen 05/03/2018 9:58 AM 018 9:59 (specimen) CDT AM CDT Timothy Smith MD LAB - BLOOD ORDERABLES Performing Organization Address City/State/ZIP Code Phon e Number [place] [address] [address] [place], [place] [address] [facility] [address] [place], [place] [address] [place] [address] (ABNORMAL) Basic metabolic panel (05/03/2018 9:58 AM CDT) athologist Signature Sodium 138 133 - 144 05/03/2018 [place] mmol/L 10:33 AM [facility] Potassium 4.5 3.4 - 5.3 05/03/2018 [place] mmol/L 10:33 AM [facility] Chloride 100 94 - 109 05/03/2018 [place] mmol/L 10:33 AM [facility] Carbon Dioxide 31 20 - 32 05/03/2018 [place] mmol/L 10:33 AM [facility] Anion Gap 7 3 - 14 05/03/2018 [place] mmol/L 10:33 AM [facility] Glucose 150 (H) 70 - 99 05/03/2018 [place] mg/dL 10:33 AM [facility] Urea Nitrogen 34 (H) 7 - 30 05/03/2018 [place] mg/dL 10:33 AM [facility] Creatinine 1.25 0.66 - 05/03/2018 [facility] 1.25 mg/dL 10:33 AM [facility] GFR Estimate 56 (L) >60 05/03/2018 [place] mL/min/1.7 10:[address] Comment: Non GFR Calc GFR Estimate If 67 >60 mL/min/1.7m2 05/03/2018 10:33 AM [facility] Comment: GFR Calc Calcium 9.2 8.5 - 10.1 mg/dL 05/03/2018 10:33 AM [facility] Specimen Anatomical Collection Method Collection Time Receive d Time (Source) Location / / Volume Laterality Blood specimen 05/03/2018 9:58 AM 018 9:59 (specimen) CDT AM CDT Timothy Smith MD LAB - BLOOD ORDERABLES Performing Organization Address City/State/ZIP Code Phon e Number M [facility] [address] [place], [place] [address] [facility] [address] [place], [place] [address] [facility] [phone] documented in this encounter Visit Diagnoses Diagnosis Ischemic cardiomyopathy Other specified forms of chronic ischemi c heart disease Persistent atrial fibrillation (H) Atrial fibrillation documented in this encounter Care Teams Control Systems Developer Relationship Specialty Start Date End Date [facility], [facility] PCP - General 01/16/18 07/01/18 [address] [place] [address] documented as of this encounter
--- OUTSIDE RECORDS SUMMARY | 2022-09-12 09:22 | XMS_ITS | Encounter Summary ---
:1940 Author Organization [place] Address [facility] [place] [address] Care Team Providers Name Role Phone Clinic, [facility] Primary Care Provider [phone] Encounter Details Date Type Department Care Team Description 01/23/2018 Orders Only [facility] Heart SOB (shortness of breath) Clinic [facility] [address] [facility] [address] [place] [phone] Social History Tobacco Use Types Packs/Day Years [...] [address] [place] [address] Trudi Grayson APRN SHOER [address] [place] [phone] 11/16/2022 Ancillary Procedure Cardiology Timothy Smith MD [address] [place] [phone] (Wo rk) documented as of this encounter [...] [facility] mmol/L 10:46 AM CDT [facility] A Potassium 4.4 3.5 - 5.1 01/23/2018 [facility] mmol/L 10:46 AM CDT [facility] A Chloride 101 98 - 107 01/23/2018 [facility] mmol/L 10:46 AM CDT [facility] A Carbon Dioxide 29 23 - 29 01/23/2018 [facility] mmol/L 10:46 AM T [facility] A Anion Gap 15.4 6 - 17 01/23/2018 [facility] mmol/L 10:46 AM T [facility] A Glucose 152 (H) 70 - 105 01/23/2018 [facility] mg/dL 10:46 AM CDT [facility] A Urea Nitrogen 27 7 - 30 01/23/2018 [facility] mg/dL 10:46 AM CDT [facility] A Creatinine 1.27 0.70 - 01/23/2018 [facility] 1.30 mg/dL 10:46 AM CDT [facility] A GFR Estimate 55 (L) >60 01/23/2018 [facility] mL/min/1.7 10:46 AM CDT [facility] m2 A GFR Estimate If 66 >60 01/23/2018 [facility] Black mL/min/1.7 10:46 AM CDT [facility] m2 A Calcium 10.1 8.5 - 10.5 01/23/2018 [facility] mg/dL 10:46 AM T [facility] A Specimen Anatomical Collection Method Collection Time Receive d Time (Source) Location / / Volume Laterality Blood specimen 01/23/2018 9:50 AM 018 9:51 (specimen) CDT AM CDT Timothy Smith MD LAB - BLOOD ORDERABLES Performing Organization Address City/State/ZIP Code Phon e Number [facility] [address] [address] [address] documented in this encounter Visit Diagnoses Diagnosis SOB (shortness of breath) Shortness of breath documented in this encounter Care Teams Medical Support Assistant Relationship Specialty Start Date End Date Clinic, Vinny Jaimes PCP - General 01/16/18 07/01/18 [address] [place] [address] documented as of this encounter
--- OUTSIDE RECORDS SUMMARY | 2022-09-12 09:22 | XMS_ITS | Encounter Summary ---
:1940 Author Organization [place] Address [address] [facility] [place] [address] Care Team Providers Name Role Phone [facility], [facility] Primary Care Provider [phone] Encounter Details Date Type Department Care Team Description 05/02/2018 Hospital Encounter [facility] Timothy Smith MD On amiodarone [facility] [address] therapy [address] [place] [phone] Social History Tobacco Use Types Packs/Day Years [...] 09/28/2022 Office Visit Cardiology Timothy Smith MD [address] [place] [phone] Trudi Grayson APRN RADIOISOTOPE TECHNICIAN [address] [phone] 11/16/2022 Ancillary Procedure Cardiology Timothy Smith MD [address] [place] [address] (Wo rk) documented as of this encounter Procedures Procedure Name Priority Date/Time Associated Diagnosis Comme nts HEMOGLOBIN Routine 05/02/2018 3:59 PM On amiodarone therapy Results for this CDT procedure are i n the results section . documented in this encounter Results Hemoglobin FUTURE anytime (05/02/2018 3:59 PM CDT) athologist Signature Hemoglobin 13.6 13.3 - 17.7 05/02/2018 [facility] g/dL 4:02 PM CDT HOSPITAL Specimen Anatomical Collection Method Collection Time Receive d Time (Source) Location / / Volume Laterality Blood specimen 05/02/2018 3:59 PM 018 4:00 (specimen) CDT PM CDT Timothy Smith MD LAB - BLOOD ORDERABLES Performing Organization Address City/State/ZIP Code Phon e Number [facility] [address] [address] [facility] [address] [phone] documented in this encounter Visit Diagnoses Diagnosis On amiodarone therapy documented in this encounter Care Teams Laminator Hand Relationship Specialty Start Date End Date [facility] PCP - General 01/16/18 07/01/18 [address] [place] [address] documented as of this encounter
--- OUTSIDE RECORDS SUMMARY | 2022-09-12 09:23 | XMS_ITS | Encounter Summary ---
:1940 Author Organization [place] Address Counts include 234 beds at the [facility] [place] [address] Care Team Providers Name Role Phone Graham Licona MD Primary Care Provider Reason for Visit Reason Onset Date Comments Refill Request 05/25/2017 eliquis Encounter Details Date Type Department Care Team Description 05/25/[address] [facility] Heart Zarina Smith MD Refill Request (eliquis) Clinic [facility]att [address] [phone] [place] [address] [place] [phone] Social History Tobacco Use Types Packs/Day Years Used Date Smoking Tobacco: Never Alcohol Use Standard Drinks/Week Comments No 0 (1 standard drink = 0.6 oz pure alcoho l) Sex Assigned at Date Recorded Not on file documented as of this encounter Plan of Treatment Upcoming Encounters Date Type Specialty Care Team Description 09/28/2022 Lab Lab 09/28/2022 Office Visit Cardiology Timothy Smith MD [address] [place] [phone] Trudi Grayson APRN SPECIAL LOAN OFFICER [address] [place] [phone] 11/16/2022 Ancillary Procedure Cardiology Timothy Smith MD [address] [place] [address] (Wo rk) documented as of this encounter Visit Diagnoses Diagnosis Paroxysmal atrial fibrillation (H) Atrial fibrillation documented in this encounter Care Teams Hospitality Workers Relationship Specialty Start Date End Date Graham Licona MD PCP - General Family Practice 04/13/17 01/15/18 [facility] [address] [place] [address] documented as of this encounter
--- OUTSIDE RECORDS SUMMARY | 2022-09-12 09:23 | XMS_ITS | Encounter Summary ---
:1940 Author Organization [place] Address [address] [facility] [place] [address] Care Team Providers Name Role Phone Graham Licona MD Primary Care Provider Reason for Visit Reason Comments Pacemaker Check alert for VHR Encounter Details Date Type Department Care Team Description 05/17/2017 Documentation Only [facility] Sergo Vega cemaker Check Heart Clinic Patt Lynne RN (alert for VHR) [address] [facility] [address] [place] [phone] Social History Tobacco Use Types Packs/Day Years Used Date Smoking Tobacco: Never Alcohol Use Standard Drinks/Week Comments No 0 (1 standard drink = 0.6 oz pure alcoho l) Sex Assigned at Date Recorded Not on file documented as of this encounter Progress Notes Guera Vega RN - 05/17/2017 1:40 PM CDT [place] PPM. Alert for VHR. Tracings show AF/RVR. Will continue to monitor. Pt on OAC. MarianeLanJeanN documented in this encounter Plan of Treatment Upcoming Encounters Date Type Specialty Care Team Description 09/28/2022 Lab Lab 09/28/2022 Office Visit Cardiology Timothy Smith MD [address] [place] [phone] Trudi Grayson APRN TRUCK SALES MANAGER [address] 215165 11/16/2022 Ancillary Procedure Cardiology Timothy Smith MD [address] [place] [phone] (Wo rk) documented as of this encounter Visit Diagnoses Not on filedocumented in this encounter Care Teams Ruby On Rails Software Developer Relationship Specialty Start Date End Date Graham Licona MD PCP - General Family Practice 04/13/17 01/15/18 [facility] [address] [place] [address] documented as of this encounter
--- OUTSIDE RECORDS SUMMARY | 2022-09-12 09:23 | XMS_ITS | Encounter Summary ---
:1940 Author Organization [place] Address [address] [facility] [place] [address] Care Team Providers Name Role Phone Graham Licona MD Primary Care Provider Reason for Visit Reason Onset Date Comments Medication Request 05/04/2017 SE with warfarin- wa nts to switch back to Eliquis Encounter Details Date Type Department Care Team Description 05/04/2017 Telephone [facility] Heart Zarina Smith MD Medication Request (SE Clinic [place] [address] with warfarin- wants to [address] switch back to Eliquis) [facility] [address] [place] [address] [place] [phone] Social History Tobacco Use [...] instruct pt to stop AC, I will car changer the prescription at this time. Patient will call us back after F/U on Sunday with anyfurther instructions/findings. SIENNA Cowart documented in this encounter Plan of Treatment Upcoming Encounters Date Type Specialty Care Team Description 09/28/2022 Lab Lab 09/28/2022 Office Visit Cardiology Timothy Smith MD [address] [place] [phone] Trudi Grayson, FLACO RN DELIVERY [address] [address] 11/16/2022 Ancillary Procedure Cardiology Timothy Smith MD [address] [place] [address] (Wo rk) documented as of this encounter Visit Diagnoses Diagnosis Paroxysmal atrial fibrillation (H) - Ria jing Atrial fibrillation documented in this encounter Care Teams Tangled Yarn Spool Straightener Relationship Specialty Start Date End Date Graham Licona MD PCP - General Family Practice 04/13/17 01/15/18 [facility] [address] [place] [address] documented as of this encounter
--- OUTSIDE RECORDS SUMMARY | 2022-09-12 09:23 | XMS_ITS | Encounter Summary ---
:1940 Author Organization [place] Address [address] [facility] [place] [address] Care Team Providers Name Role Phone Nas Cardenas MD Primary Care Provider Unavailable Reason for Visit Reason Onset Date Comments Prior Auth - Medication 04/24/2016 ELIQUIS 5 MG- NO PA NEEDED Encounter Details Date Type Department Care Team Description 04/24/2016 Telephone [facility] Heart Zarina Smith MD Prior Auth - Medication Clinic [place] [address] (ELIQUIS 5 MG- NO PA [address] NEEDED) [facility] [address] [place] [address] [place] [phone] Social History Tobacco Use Types Packs/Day Years [...] Office Visit Cardiology Timothy Smith MD [address] [place] 612[address] Trudi Grayson, FLACO SAP TRAINER [address] [phone] 11/16/2022 Ancillary Procedure Cardiology Timothy Smith MD [address] [place] [phone] (Wo rk) documented as of this encounter Visit Diagnoses Not on filedocumented in this encounter Care Teams Drafter Directional Survey Relationship Specialty Start Date End Date Nas Cardenas MD PCP - General Family Practice 02/01/12 04/12/17 documented as of this encounter
--- OUTSIDE RECORDS SUMMARY | 2022-09-12 09:23 | XMS_ITS | Encounter Summary ---
:1940 Author Organization [place] Address [address] [facility] [place] [address] Care Team Providers Name Role Phone Graham Licona MD Primary Care Provider Reason for Visit Reason Onset Date Comments Prior Auth - Medication 05/10/2017 apixaban ANTICOA GULANT (ELIQUIS) 5 MG tablet - Tier Exception Appro chikis Encounter Details Date Type Department Care Team Description 05/10/2017 Telephone [facility] Timothy Smith MD Prior Auth - Medication Heart Clinic [place] [address] (apixaban ANTICOAGULANT [address] (ELIQUIS) 5 MG tablet - [facility] [address] [place], [place] [address] Tier Exception Approved) [place] [phone] Social History Tobacco Use Types Packs/Day Years [...] Exception Approved Approved Dose/Quantity: Reference #: Insurance [employer]: REEL Qualified [phone] Expected CoPay: $1.00 patient p/u meds on 05/23/17 CoPay Card Available: [facility] Assistance Needed: Which Pharmacy is filling the prescription (Not needed for infusion/clinic administered): [facility] [address] [place] [phone] [facility] Pharmacy Notified: Yes Patient Notified: Yes Telephone Encounter - Yareli Tamez - 05/28/2017 9:30 AM CDT Images from the original note were not included. Telephone Encounter - Yareli Tamez - 05/16/2017 11:28 AM CDT Images from the original note were not included. [facility] Prior Authorization Team Tier Exception Initiation Medication: apixaban ANTICOAGULANT (ELIQUIS) 5 MG tablet Insurance Company: [employer] - Pharmacy Filling the Rx: [facility] [address] [place] [address] [facility] Filling Pharmacy Filling Pharmacy Fax: Start Date: 05/16/2017 documented in this encounter Plan of Treatment Upcoming Encounters Date Type Specialty Care Team Description 09/28/2022 Lab Lab 09/28/2022 Office Visit Cardiology Timothy Smith MD [address] [place] [phone] Trudi Grayson APRN CNP [address] [address] 11/16/2022 Ancillary Procedure Cardiology Timothy Smith MD [address] [place] [phone] (Wo rk) documented as of this encounter Visit Diagnoses Not on filedocumented in this encounter Care Teams Substance Abuse Prevention Coordinator Relationship Specialty Start Date End Date Graham Licona MD PCP - General Family Practice 04/13/17 01/15/18 [facility] [address] [place] [address] documented as of this encounter
--- OUTSIDE RECORDS SUMMARY | 2022-09-12 09:23 | XMS_ITS | Encounter Summary ---
:1940 Author Organization [place] Address [address] [facility] [place] [address] Care Team Providers Name Role Phone Graham Licona MD Primary Care Provider Reason for Visit Reason Onset Date Comments Pacemaker Check 04/25/2017 Remote alert for VHR Encounter Details Date Type Department Care Team Description 04/25/2017 Telephone [facility] Heart Fabiola Hurtado acemaker Check (Remote Clinic Patt Bui, RN, RN alert for VHR) [address] [facility] HEART South [address] [place] [phone] [address] [facility] [phone] [address] [place] [address] Social History Tobacco Use Types Packs/Day Years Used Date Smoking Tobacco: Never Alcohol Use Standard Drinks/Week Comments No 0 (1 standard drink = 0.6 oz pure alcoho l) Sex Assigned at Date Recorded Not on file documented as of this encounter Miscellaneous Notes Telephone Encounter - Fabiola Hurtado, RN, RN - 04/25/2017 5:09 PM CDT [employer] PPM Alert Received alert for another [...] [address] [place] [phone] Trudi Grayson APRN MANAGER OUTPATIENT [address] [address] 11/16/2022 Ancillary Procedure Cardiology Timothy Smith MD [address] [place] [address] (Wo rk) documented as of this encounter Visit Diagnoses Not on filedocumented in this encounter Care Teams Environment Artist Relationship Specialty Start Date End Date Graham Licona MD PCP - General Family Practice 04/13/17 01/15/18 [facility] [address] [place] [address] documented as of this encounter
--- OUTSIDE RECORDS SUMMARY | 2022-09-12 09:23 | XMS_ITS | Encounter Summary ---
:1940 Author Organization [place] Address [facility] [place] [address] Care Team Providers Name Role Phone Nas Cardenas MD Primary Care Provider Unavailable Reason for Visit Reason Comments Pacemaker Check PPM Latitude NXT Encounter Details Date Type Department Care Team Description 10/04/2016 Allied Health/Nurse [facility] Pac emaker Check (PPM Visit Heart Clinic [place] Latitude NXT) [facility] [address] [place] [phone] Social History Tobacco Use Types Packs/Day Years Used Date Smoking Tobacco: Never Alcohol Use Standard Drinks/Week Comments No 0 (1 standard drink = 0.6 oz pure alcoho l) Sex Assigned at Date Recorded Not on file documented as of this encounter Progress Notes Sary Riojas - 10/04/2016 8:17 AM CST Seen [employer] EL L121 (D) Remote PPM Device Check AP: 2% GREY WASHER: 13% Mode: DDDR Presenting Rhythm: Aflutter with VS and GREY WASHER Heart Rate: evidence on histogram of some [...] results and next transmission date. Darius CVT ROLS DESIGN ENGINEER documented in this encounter Plan of Treatment Upcoming Encounters Date Type Specialty Care Team Description 09/28/2022 Lab Lab 09/28/2022 Office Visit Cardiology Timothy Smith MD [address] [place] [phone] Trudi Grayson APRN HEAD TEACHER [address] 774265 11/16/2022 Ancillary Procedure Cardiology Timothy Smith MD [address] [place] [phone] (Wo rk) documented as of this encounter Procedures Procedure Name Priority Date/Time Associated Diagnosis Comme [facility] PM DEVICE Routine 10/04/2016 8:35 AM Cardiac pacemaker in INTERROGATE REMOTE, UP CONTROLS DESIGN ENGINEER situ TO 90 DAYS, LEAD/LEADLESS HC INTERR DEVICE EVAL Routine 10/04/2016 Cardiac pacemaker i n REMOTE, PM/LDLS PM/ICD, situ UP TO 90 DAYS documented in this encounter Results INTERROGATION DEVICE EVAL REMOTE, PACER/ICD (45561) (10/04/2016) Narrative This result has an attachment that is no t available. Chris Hinds MD PROCEDURES documented in this encounter Visit Diagnoses Diagnosis Cardiac pacemaker in situ - Primary documented in this encounter Care Teams Wood Tank Builder Relationship Specialty Start Date End Date Nas Cardenas MD PCP - General Family Practice 02/01/12 04/12/17 documented as of this encounter
--- OUTSIDE RECORDS SUMMARY | 2022-09-12 09:23 | XMS_ITS | Encounter Summary ---
:1940 Author Organization [place] Address [address] [place] [address] Care Team Providers Name Role Phone Graham Licona MD Primary Care Provider Encounter Details Date Type Department Care Team Description 11/14/2017 [facility] [place] [address] [facility] [address] [place] [phone] Social History Tobacco Use Types Packs/Day [...] in for annual check on 01/16. SPowellRN FITI CLEANER documented in this encounter Plan of Treatment Upcoming Encounters Date Type Specialty Care Team Description 09/28/2022 Lab Lab 09/28/2022 Office Visit Cardiology Timothy Smith MD [address] [place] [phone] Trudi Grayson APRN STRAND GALVANIZER [address] 879[address] 11/16/2022 Ancillary Procedure Cardiology Timothy Smith MD [address] [place] 703155 (Wo rk) documented as of this encounter Visit Diagnoses Not on filedocumented in this encounter Care Teams General Farm Manager Relationship Specialty Start Date End Date Graham Licona MD PCP - General Family Practice 04/13/17 01/15/18 [facility] [address] [place] [address] documented as of this encounter
--- OUTSIDE RECORDS SUMMARY | 2022-09-12 09:23 | XMS_ITS | Encounter Summary ---
:1940 Author Organization [place] Address [address] [place] [address] Care Team Providers Name Role Phone Graham Licona MD Primary Care Provider Reason for Visit Reason Comments Pacemaker Check remote alert for VHR Encounter Details Date Type Department Care Team Description 04/20/2017 Documentation Only [facility] Fabiola Hurtado acectker Check Heart Clinic Patt Bui RN, RN (remote alert for [address] [facility] HEART VHR) South [address] [place] [address] [phone] [address] [place] [address] Social History Tobacco Use Types Packs/Day Years Used Date Smoking Tobacco: Never Alcohol Use Standard Drinks/Week Comments No 0 (1 standard drink = 0.6 oz pure alcoho l) Sex Assigned at Date Recorded Not on file documented as of this encounter Progress Notes Fabiola Hurtado, RN, RN - 04/20/2017 9:28 AM CDT [employer] PPM- Alert- NO CHARGE Another alert for [...] [address] [place] [phone] Trudi Grayson APRN SALES PORTER [address] [address] 11/16/2022 Ancillary Procedure Cardiology Timothy Smith MD [address] [place] [address] (Wo rk) documented as of this encounter Visit Diagnoses Not on filedocumented in this encounter Care Teams Motor Vehicles Inspector Relationship Specialty Start Date End Date Graham Licona MD PCP - General Family Practice 04/13/17 01/15/18 [facility] [address] [place] [address] documented as of this encounter
--- OUTSIDE RECORDS SUMMARY | 2022-09-12 09:23 | XMS_ITS | Encounter Summary ---
:1940 Author Organization [place] Address [facility] [place] [address] Care Team Providers Name Role Phone Graham Licona MD Primary Care Provider Reason for Visit Reason Onset Date Comments Refill Request 08/13/2017 Encounter Details Date Type Department Care Team Description 08/13/2017 Refill [facility] Heart Zarina Smith MD Refill Request Clinic [place] [address] [place] [address] [facility] [address] [place] [address] [phone] Social History Tobacco Use Types Packs/Day Years [...] [address] [place] [phone] Trudi Grayson APRN [facility] [address] [place] [address] 11/16/2022 Ancillary Procedure Cardiology Timothy Smith MD [address] [place] [address] (Wo rk) documented as of this encounter Visit Diagnoses Not on filedocumented in this encounter Care Teams Track Greaser Relationship Specialty Start Date End Date Graham Licona MD PCP - General Family Practice 04/13/17 01/15/18 [facility] [address] [place] [address] documented as of this encounter
--- OUTSIDE RECORDS SUMMARY | 2022-09-12 09:23 | XMS_ITS | Encounter Summary ---
:1940 Author Organization [place] Address [facility] [place] [address] Care Team Providers Name Role Phone Nas Cardenas MD Primary Care Provider Unavailable Reason for Visit Reason Comments ICD Check Encounter Details Date Type Department Care Team Description 03/29/2017 Allied Health/Nurse [facility] [place] [facility] ICD Check Visit Clinic [address] [place] [address] Social History Tobacco Use Types Packs/Day Years Used Date Smoking Tobacco: Never Alcohol Use Standard Drinks/Week Comments No 0 (1 standard drink = 0.6 oz pure alcoho l) Sex Assigned at Date Recorded Not on file documented as of this encounter Progress Notes Mary Norris, RN, RN - 03/29/2017 4:30 PM CDT Courtesy check: No charge. [email or web address] remote ICD alert for VT and NSVT [...] to schedule f/u with Dr Smith or MEDICAL EDUCATION COORDINATOR if symptoms persist. Or if he cont to have frequent fast rates, we can review need to med changes with Dr Smith. 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
--- OUTSIDE RECORDS SUMMARY | 2022-09-12 09:23 | XMS_ITS | Encounter Summary ---
:1940 Author Organization [place] Address [address] [facility] [place] [address] Care Team Providers Name Role Phone Graham Licona MD Primary Care Provider Reason for Visit Reason Comments Pacemaker Check Alert for VHR Encounter Details Date Type Department Care Team Description 04/24/2017 Documentation Only [facility] Fabiola Hurtado [facility] Check [facility] [place] Bui RN, RN (Alert for VHR) [address] [facility] [address] [place] [address] [facility] [phone] [address] [place] [address] Social History Tobacco Use Types Packs/Day Years Used Date Smoking Tobacco: Never Alcohol Use Standard Drinks/Week Comments No 0 (1 standard drink = 0.6 oz pure alcoho l) Sex Assigned at Date Recorded Not on file documented as of this encounter Progress Notes Fabiola Hurtado RN, RN - 04/24/2017 7:44 AM CDT [facility] PPM ALERT Alert for VHR, [...] [address] [place] [id number] Trudi Grayson APRN PARTS CLERK [address] [id number] 11/16/2022 Ancillary Procedure Cardiology Timothy Smith MD [address] [place] [address] (Wo rk) documented as of this encounter Visit Diagnoses Not on filedocumented in this encounter Care Teams Roast Master Relationship Specialty Start Date End Date Graham Licona MD PCP - General Family Practice 04/13/17 01/15/18 [facility] [address] [place] [address] documented as of this encounter
--- OUTSIDE RECORDS SUMMARY | 2022-09-12 09:23 | XMS_ITS | Encounter Summary ---
:1940 Author Organization [place] Address [address] [facility] [place] [address] Care Team Providers Name Role Phone Nas Cardenas MD Primary Care Provider Unavailable Reason for Referral Specialty Diagnoses / Procedures Referred By Contact Refer red To Contact Ankur Smith MD [address] [address] [place] [address] Referral ID Status Reason Start Date Expiration Date Visits Requ ested Visits Authorized Scheduling Instructions ANTICOAGULATION CLINIC COLLABORATIVE TX ACTICE AGREEMENT The following represents a collaborative [...] of adverse or sub-therapeutic effects including at [facility] the following: Has the patient experienced [...] [address] [place] [address] Referral ID Status Reason Start Date Expiration Date Visits Requ ested Visits Authorized [id number] Closed 12/04/2016 12/04/2017 1 1 Encounter Details Date Type Department Care Team Description 12/29/2016 Office Visit [facility] Buffy Montenegro PA-C [address] [place] [id number] Paroxysmal atrial fibrillation (H) (Prim arnie Dx); Heart Clinic Ankur Beauchamp MD [address] [place] [phone] Sinoatrial node dysfunction (H) [address] [facility] [address] [place] [phone] Social History Tobacco Use Types Packs/Day Years [...] flutter ablation in 2012. He later receiveda [employer] dual-chamber pacemaker for symptomatic sinus node [...] in your office. cc: Nas Cardenas MD [facility] [address] [place] [address] ANKUR SMITH MD MT: MANDIE Name: RADHA VILLA MRN: [id number] Account: [id number] : 1940 Service Date: 12/29/2016 Document: [id number] Ankur Smith MD - 12/29/2016 1:15 PM [...] [address] [place] [address] documented in this encounter Plan of Treatment Upcoming Encounters Date Type Specialty Care Team Description 09/28/2022 Lab Lab 09/28/2022 Office Visit Cardiology Ankur [place] MD [address] [place] [address] Trudi Grayson APRN MICROSOFT NET DEVELOPER [address] [place] [address] 11/16/2022 Ancillary Procedure Cardiology Ankur Smith MD [address] [place] [phone] (Wo rk) Scheduled Referrals Name Type Priority Associated Diagnoses Order S chedule INR/ANTICOAG REFERRAL Referral Routine Paroxysmal atrial E xpected: 12/29/2016, fibrillation (H) Expires: documented as of this encounter Results Holter Monitor 24 hour - Adult (01/08/2017) Narrative [facility] - 01/08/[address] [phone] 01/04/2017 Patient: ??Radha Villa Chart: [id number] : ??1940 Age: ??76 year old Sex: ??male Procedure: ??Holter Monitor Placed: plea se see scanned document for result once interpretation is completed. Collaborating Supervising Physician performing hook-up: ??Sheri Yuen Ankur [place] MD CV CARDIAC SERVICES ORDERABL ES Performing Organization Address City/State/ZIP Code Phon e Number [facility] documented in this encounter Visit Diagnoses Diagnosis Paroxysmal atrial fibrillation (H) - Ria jing Atrial fibrillation Sinoatrial node dysfunction (H) Sinoatrial node dysfunction Paroxysmal atrial fibrillation (H) Atrial fibrillation documented in this encounter Care Teams Research Neuropsychologist Relationship Specialty Start Date End Date Nas Cardenas MD PCP - General Family Practice 02/01/12 04/12/17 documented as of this encounter
--- OUTSIDE RECORDS SUMMARY | 2022-09-12 09:23 | XMS_ITS | Encounter Summary ---
:1940 Author Organization [place] Address [address] [place] [address] Care Team Providers Name Role Phone Nas Cardenas MD Primary Care Provider Unavailable Reason for Visit Reason Comments Pacemaker Check [place] Encounter Details Date Type Department Care Team Description 03/19/2017 Allied Health/Nurse Health [place] Pac emaker Check Visit [facility] [place] ([place]) [address] [facility] [address] [place] [phone] Social History Tobacco Use Types Packs/Day Years Used Date Smoking Tobacco: Never Alcohol Use Standard Drinks/Week Comments No 0 (1 standard drink = 0.6 oz pure alcoho l) Sex Assigned at Date Recorded Not on file documented as of this encounter Progress Notes Quang Montalvo, RN - 03/19/2017 4:30 PM CDT [facility] Essentio PPM Courtesy-No Charge Alert received for VT episode. EGM suggest PAT. Patient also had several NSVT episodes; EGMs also suggest PAT Lead measurements are stable. Will continue to monitor. YYangRN. documented in this encounter Plan of Treatment Upcoming Encounters Date Type Specialty Care Team Description 09/28/2022 Lab Lab 09/28/2022 Office Visit Cardiology Timothy [place] MD [address] [place] [phone] Trudi Gr[place], DIGITAL PRE PRESS OPERATOR FINGER GRIP MACHINE OPERATOR [address] [address] 11/16/2022 Ancillary Procedure Cardiology Timothy Smith MD [address] [place] [address] (Wo rk) documented as of this encounter Visit Diagnoses Diagnosis Cardiac pacemaker in situ - Primary documented in this encounter Care Teams Gold Charmer Relationship Specialty Start Date End Date Nas Cardenas MD PCP - General Family Practice 02/01/12 04/12/17 documented as of this encounter
--- OUTSIDE RECORDS SUMMARY | 2022-09-12 09:23 | XMS_ITS | Encounter Summary ---
:1940 Author Organization [place] Address [address] [place] [address] Care Team Providers Name Role Phone Graham Licona MD Primary Care Provider Reason for Visit Reason Onset Date Comments Patient Request 05/08/2017 echo Encounter Details Date Type Department Care Team Description 05/08/2017 Telephone [facility] Heart [place] P atient Request (echo) Clinic [place] [address] [facility] [address] [place] [phone] Social History Tobacco Use Types Packs/Day [...] call, Discussed that having the echo [place] is fine, but would request that echo [...] and ordered to have an [place] in [place]. Pt wondering if we would want it done up here. Attempted to call pt back but phone on rang and did not go to voice message, willattempt to call later. JNelsonRN documented in this encounter Plan of Treatment Upcoming Encounters Date Type Specialty Care Team Description 09/28/2022 Lab Lab 09/28/2022 Office Visit Cardiology Timothy [place] MD [address] [place] [address] Trudi Grayson APRN ROTARY ENVELOPE MACHINE OPERATOR [address] [place] [address] 11/16/2022 Ancillary Procedure Cardiology Timothy Smith MD [address] [place] [address] (Wo rk) documented as of this encounter Visit Diagnoses Not on filedocumented in this encounter Care Teams Family Practice Doctor Relationship Specialty Start Date End Date Graham Licona MD PCP - General Family Practice 04/13/17 01/15/18 [facility] [address] [place] [address] documented as of this encounter
--- OUTSIDE RECORDS SUMMARY | 2022-09-12 09:23 | XMS_ITS | Encounter Summary ---
:1940 Author Organization [place] Address [address] [facility] [place] [address] Care Team Providers Name Role Phone Nas Cardenas MD Primary Care Provider Unavailable Reason for Visit Reason Onset Date Comments Left Message To Call 01/23/2017 re the warfarin Encounter Details Date Type Department Care Team Description 01/23/2017 Telephone [facility] Catherine Aranda, Left Message To Call Heart [facility] [place] (re the warfarin) [address] [place] [address] [address] [place] [phone] Social History Tobacco [...] 09/28/2022 Office Visit Cardiology Timothy Simth MD [address] [place] [phone] Trudi Grayson APRN MAILING MACHINE ASSISTANT [address] [address] 11/16/2022 Ancillary Procedure Cardiology Timothy [place] MD [address] [place] [address] (Wo rk) documented as of this encounter Visit Diagnoses Not on filedocumented in this encounter Care Teams Tin Container Straightener Relationship Specialty Start Date End Date Nas Cardenas MD PCP - General Family Practice 02/01/12 04/12/17 documented as of this encounter
--- OUTSIDE RECORDS SUMMARY | 2022-09-12 09:23 | XMS_ITS | Encounter Summary ---
:1940 Author Organization [place] Address [address] [facility] [place] [address] Care Team Providers Name Role Phone Nas Cardenas MD Primary Care Provider Unavailable Reason for Visit Reason Comments Heart Problem 6 week follow up - Closed Specialty Diagnoses / Procedures Referred By Contact Refer red To Contact Diagnoses SSS (sick sinus syndrome) (H) Typical atrial flutter (H) [facility] [id number] [place] [address] Referral ID Status Reason Start Date Expiration Date Visits Requ ested Visits Authorized [id number] Closed 04/11/2016 04/11/2017 1 1 Encounter Details Date Type Department Care Team Description 05/15/2016 Office Visit [facility] Ankur [place] MD SSS (sick sinus syndrome) (H); [facility] [place] [address] [facility] Typical atrial flutter (H) [id number] [place] [address] [place] [address] Social History Tobacco Use Types [...] CDT May 15, 2016 Nas Cardenas MD On License Of [facility] [address] [place], [place] [id number] RE: Radha Villa : [address] [...] episodes of sinus asystole. He received a [employer] dual-chamber pacemaker implantation during the same hospitalization because he reported history of recurrent near-syncope prior to the admission. Since the pacemaker implantation, he has not had any recurrent syncope. He did undergo coronary angiography that showed patent grafts, although his rosebud vessels were occluded. At the present time, [...] MD MT: KALPESH Name: RADHA VILLA Account: [id number] : 1940 Service Date: 05/15/2016 Document: [id number] Ankur [place] MD - 05/15/2016 1:29 PM [...] Visit Cardiology Ankur [place] MD [address] [place] [address] Trudi Grayson APRN VARIETY SAW OPERATOR [address] [address] 11/16/2022 Ancillary Procedure Cardiology Ankur [place] MD [address] [place] [address] (Wo rk) documented as of this encounter Visit Diagnoses Diagnosis SSS (sick sinus syndrome) (H) Sinoatrial node dysfunction Typical atrial flutter (H) Atrial flutter documented in this encounter Care Teams Fish Drier Relationship Specialty Start Date End Date Nas Cardenas MD PCP - General Family Practice 02/01/12 04/12/17 documented as of this encounter
--- OUTSIDE RECORDS SUMMARY | 2022-09-12 09:23 | XMS_ITS | Encounter Summary ---
:1940 Author Organization [place] Address [address] [place] [address] Care Team Providers Name Role Phone Graham Licona MD Primary Care Provider Reason for Visit Reason Comments Pacemaker Check annual threshold Encounter Details Date Type Department Care Team Description 04/13/2017 Allied Health/Nurse [facility] Pac emaker Check (annual Visit [facility] [place] threshold) [address] [facility] [address] [place] [phone] Social History Tobacco Use Types Packs/Day Years Used Date Smoking Tobacco: Never Alcohol Use Standard Drinks/Week Comments No 0 (1 standard drink = 0.6 oz pure alcoho l) Sex Assigned at Date Recorded Not on file documented as of this encounter Progress Notes Sammi Hill, SIENNA - 04/13/2017 9:45 AM CDT [employer] [facility] (D) Pacemaker Device Check AP: 1 % MACARONI MAKER: 15 % Mode: DDDR 60-130, changed to [...] Smith MD [address] [place], [place] [address] Trudi Grayson APRN ROUTER TENDER [address] [place] [address] 11/16/2022 Ancillary Procedure Cardiology Timothy Smith MD [address] [place] [phone] (Wo rk) documented as of this encounter Procedures Procedure Name Priority Date/Time Associated Diagnosis Comme nts HC PM DEVICE PROGRAMMING Routine 04/13/2017 Cardiac pacemaker in situ EVAL, DUAL LEAD PACER Sinoatrial node dys function (H) documented in this encounter Results PM DEVICE PROGRAMMING EVAL, DUAL LEAD PACER (40167) (04/13/2017) Narrative This result has an attachment that is no t available. Basil Guadalupe MD PROCEDURES documented in this encounter Visit Diagnoses Diagnosis Cardiac pacemaker in situ - Primary Sinoatrial node dysfunction (H) Sinoatrial node dysfunction documented in this encounter Care Teams Search Engine Optimization Manager Relationship Specialty Start Date End Date Graham Licona MD PCP - General Family Practice 04/13/17 01/15/18 [facility] [address] [place] [address] documented as of this encounter
--- OUTSIDE RECORDS SUMMARY | 2022-09-12 09:23 | XMS_ITS | Encounter Summary ---
:1940 Author Organization [place] Address [address] [facility] [place] [address] Care Team Providers Name Role Phone Graham Licona MD Primary Care Provider Reason for Visit Reason Comments Samples eliquis 5mg Encounter Details Date Type Department Care Team Description 05/14/2017 Care Coordination [facility] Catherine Aranda Sa (eliquis [facility] [place] Cren[place] LPN 5mg) [address] [facility] [address] [place] [phone] [...] 09/28/2022 Office Visit Cardiology Timothy [place] MD [address] [place] [phone] Trudi Grayson APRN NEW ACCOUNT INTERVIEWER [address] [phone] 11/16/2022 Ancillary Procedure Cardiology Timothy [place] MD [address] [place] [phone] (Wo rk) documented as of this encounter Visit Diagnoses Not on filedocumented in this encounter Care Teams Tree Doctor Relationship Specialty Start Date End Date Graham Licona MD PCP - General Family Practice 04/13/17 01/15/18 [facility] [address] [place] [address] documented as of this encounter
--- OUTSIDE RECORDS SUMMARY | 2022-09-12 09:23 | XMS_ITS | Encounter Summary ---
:1940 Author Organization [place] Address [facility] [place] [address] Care Team Providers Name Role Phone Graham Licona MD Primary Care Provider Reason for Visit Reason Comments Pacemaker Check PPM Latitude NXT Encounter Details Date Type Department Care Team Description 07/16/2017 Allied Health/Nurse [facility] Pac emaker Check (PPM Visit Heart [facility] [place] Latitude NXT) [address] [place] [address] [address] [place] [address] Social History Tobacco Use Types Packs/Day Years Used Date Smoking Tobacco: Never Alcohol Use Standard Drinks/Week Comments No 0 (1 standard drink = 0.6 oz pure alcoho l) Sex Assigned at Date Recorded Not on file documented as of this encounter Progress Notes Sary Riojas - 07/16/2017 9:00 AM CDT Dino Adan VALLES L121 (S) Remote PPM Device Check DISH NETWORK INSTALLER: 8% Mode: VVIR Presenting Rhythm: Afib with [...] [place] MD [address] [place] [phone] Trudi Grayson, FLACO TRADE PROMOTION ANALYST [address] [place] [address] 11/16/2022 Ancillary Procedure Cardiology Timothy [place] MD [address] [place] [phone] (Wo rk) documented as of this encounter Procedures Procedure Name Priority Date/Time Associated Diagnosis Comme [facility] PM DEVICE Routine 07/16/2017 1:42 PM Cardiac pacemaker in INTERROGATE REMOTE, UP CDT situ TO 90 DAYS, LEAD/LEADLESS HC INTERR DEVICE EVAL Routine 07/16/2017 Cardiac pacemaker i n REMOTE, PM/LDLS PM/ICD, situ UP TO 90 DAYS documented in this encounter Results INTERROGATION DEVICE EVAL REMOTE, PACER/ICD (56142) (07/16/2017) Narrative This result has an attachment that is no t available. Basil Guadalupe MD PROCEDURES documented in this encounter Visit Diagnoses Diagnosis Cardiac pacemaker in situ - Primary documented in this encounter Care Teams Supervisor Research Kennel Relationship Specialty Start Date End Date Graham Licona MD PCP - General Family Practice 04/13/17 01/15/18 [facility] [address] [place] [address] documented as of this encounter
--- OUTSIDE RECORDS SUMMARY | 2022-09-12 09:23 | XMS_ITS | Encounter Summary ---
:1940 Author Organization [place] Address [address] [facility] [place] [address] Care Team Providers Name Role Phone Graham Licona MD Primary Care Provider Reason for Visit Reason Comments Pacemaker Check Clinic Care Coordination - Follow-up Encounter Details Date Type Department Care Team Description 08/13/2017 Documentation Only [facility] Sergo Vega Check; Heart Clinic [place] Lynne RN Clinic Care [address] [place] [address] [address] [place] [phone] Social History Tobacco [...] questions he can call the clinic. Abe HER PRODUCTS SUPERVISOR documented in this encounter Plan of Treatment Upcoming Encounters Date Type Specialty Care Team Description 09/28/2022 Lab Lab 09/28/2022 Office Visit Cardiology Timothy [place] MD [address] [place] [phone] Trudi Grayson APRN BOX ATTACHER [address] [phone] 11/16/2022 Ancillary Procedure Cardiology Timothy [place] MD [address] [place] [phone] (Wo rk) documented as of this encounter Visit Diagnoses Not on filedocumented in this encounter Care Teams Doorshaker Relationship Specialty Start Date End Date Graham Licona MD PCP - General Family Practice 04/13/17 01/15/18 [facility] [address] [place] [address] documented as of this encounter
--- OUTSIDE RECORDS SUMMARY | 2022-09-12 09:23 | XMS_ITS | Encounter Summary ---
:1940 Author Organization [place] Address [address] [facility] [place] [address] Care Team Providers Name Role Phone Graham Licona MD Primary Care Provider Reason for Visit Reason Comments Pacemaker Check Alert Encounter Details Date Type Department Care Team Description 06/12/[address] [facility] Lula Pa Pace maker Check Heart Clinic [place] RN (Alert) [address] [facility] [address] [place] [phone] Social History Tobacco Use Types Packs/Day Years Used Date Smoking Tobacco: Never Alcohol Use Standard Drinks/Week Comments No 0 (1 standard drink = 0.6 oz pure alcoho l) Sex Assigned at Date Recorded Not on file documented as of this encounter Progress Notes Lula Pa RN - 06/12/2017 2:50 PM CDT [employer] [facility]-Alert for VHR Latitude alert for VT [...] 09/28/2022 Office Visit Cardiology Timothy [place] MD [address] [facility] [address] [place] [address] Trudi Grayson APRN MEDICAL PHOTOGRAPHER [address] [phone] 11/16/2022 Ancillary Procedure Cardiology Timothy [place] MD [address] [place] [address] (Wo rk) documented as of this encounter Visit Diagnoses Not on filedocumented in this encounter Care Teams Border Guard Relationship Specialty Start Date End Date Graham Licona MD PCP - General Family Practice 04/13/17 01/15/18 [facility] [address] [place] [address] documented as of this encounter
--- OUTSIDE RECORDS SUMMARY | 2022-09-12 09:23 | XMS_ITS | Encounter Summary ---
:1940 Author Organization [place] Address [facility] [place] [address] Care Team Providers Name Role Phone Nas Cardenas MD Primary Care Provider Unavailable Reason for Visit Reason Comments ICD Check Encounter Details Date Type Department Care Team Description 03/26/2017 Allied Health/Nurse Health [place] Heart ICD Check Visit Clinic [place] [address] [facility] [address] [place] [phone] Social History Tobacco Use Types Packs/Day Years Used Date Smoking Tobacco: Never Alcohol Use Standard Drinks/Week Comments No 0 (1 standard drink = 0.6 oz pure alcoho l) Sex Assigned at Date Recorded Not on file documented as of this encounter Progress Notes Mary Norris, RN, RN - 03/26/2017 4:30 PM CDT Courtesy Check: No charge. 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
--- OUTSIDE RECORDS SUMMARY | 2022-09-12 09:23 | XMS_ITS | Encounter Summary ---
:1940 Author Organization [place] Address [facility] [place] [address] Care Team Providers Name Role Phone Graham Licona MD Primary Care Provider Reason for Visit Reason Comments Pacemaker Check PPM Latitude NXT Encounter Details Date Type Department Care Team Description 10/22/2017 Allied Health/Nurse [facility] Pac emaker Check (PPM Visit [facility] [place] Latitude NXT) [address] [place] [address] [address] [place] [address] Social History Tobacco Use Types Packs/Day Years Used Date Smoking Tobacco: Never Alcohol Use Standard Drinks/Week Comments No 0 (1 standard drink = 0.6 oz pure alcoho l) Sex Assigned at Date Recorded Not on file documented as of this encounter Progress Notes Sary Riojas - 10/22/2017 3:30 PM CST [place] Jaret VALLES L121 (S) Remote PPM Device Check BUSINESS OFFICE ASSOCIATE: 11% Mode: VVIR Presenting Rhythm: BUSINESS OFFICE ASSOCIATE Heart Rate: historgram shows heart rates 60 [...] answer, left message with results. KOlson CVT ON WASHER documented in this encounter Plan of Treatment Upcoming Encounters Date Type Specialty Care Team Description 09/28/2022 Lab Lab 09/28/2022 Office Visit Cardiology Timothy Smith MD [address] [place] [phone] Trudi Grayson, FLACO SPRAY TECHNICIAN [address] [place] [address] 11/16/2022 Ancillary Procedure Cardiology Timothy Smith MD [address] [place] [id number] (Wo rk) documented as of this encounter Procedures Procedure Name Priority Date/Time Associated Diagnosis Comme [facility] Z PM DEVICE Routine 10/22/2017 8:41 AM Cardiac pacemaker in INTERROGATE REMOTE, UP COTTON WASHER situ TO 90 DAYS, LEAD/LEADLESS HC INTERR DEVICE EVAL Routine 10/22/2017 Cardiac pacemaker i n REMOTE, PM/LDLS PM/ICD, situ UP TO 90 DAYS documented in this encounter Results INTERROGATION DEVICE EVAL REMOTE, PACER/ICD (94063) (10/22/2017) Narrative This result has an attachment that is no t available. Basil Guadalupe MD PROCEDURES documented in this encounter Visit Diagnoses Diagnosis Cardiac pacemaker in situ - Primary documented in this encounter Care Teams Maintenance Of Way Superintendent Relationship Specialty Start Date End Date Graham Licona MD PCP - General Family Practice 04/13/17 01/15/18 [facility] [address] [place] [address] documented as of this encounter
--- OUTSIDE RECORDS SUMMARY | 2022-09-12 09:23 | XMS_ITS | Encounter Summary ---
:1940 Author Organization [place] Address [address] [facility] [place] [address] Care Team Providers Name Role Phone Nas Cardenas MD Primary Care Provider Unavailable Reason for Visit Reason Onset Date Comments Refill Request 06/15/2016 Encounter Details Date Type Department Care Team Description 06/15/[address] [facility] Heart Marian Vega, Refill Request Clinic [facility] [address] [facility] [address] [place] [phone] Social History Tobacco Use Types Packs/Day Years [...] [address] [place] [address] Trudi Grayson APRN TUTORING CLINICIAN [address] [place] [address] 11/16/2022 Ancillary Procedure Cardiology Timothy Smith MD [address] [place] [id number] (Wo rk) documented as of this encounter Visit Diagnoses Diagnosis Atrial flutter (H) - Primary Atrial flutter documented in this encounter Care Teams Roll Handler Relationship Specialty Start Date End Date Nas Cardenas MD PCP - General Family Practice 02/01/12 04/12/17 documented as of this encounter
--- OUTSIDE RECORDS SUMMARY | 2022-09-12 09:23 | XMS_ITS | Encounter Summary ---
:1940 Author Organization [place] Address [address] [facility] [place] [address] Care Team Providers Name Role Phone Graham Licona MD Primary Care Provider Reason for Visit Reason Onset Date Comments Refill Request 08/10/2017 metoprolol Encounter Details Date Type Department Care Team Description 08/10/2017 Refill [facility] Zarina Smith MD Refill Request Clinic [facility] [address] (metoprolol) [address] [phone] [address] [place] [address] [place] [phone] Social History Tobacco Use Types Packs/Day Years Used Date Smoking Tobacco: Never Alcohol Use Standard Drinks/Week Comments No 0 (1 standard drink = 0.6 oz pure alcoho l) Sex Assigned at Date Recorded Not on file documented as of this encounter Plan of Treatment Upcoming Encounters Date Type Specialty Care Team Description 09/28/2022 Lab Lab 09/28/2022 Office Visit Cardiology Timothy Smith MD [address] [place] [phone] Trudi Grayson APRN TOP EXECUTIVE [address] [place] [address] 11/16/2022 Ancillary Procedure Cardiology Timothy Smith MD [address] [place] [address] (Wo rk) documented as of this encounter Visit Diagnoses Diagnosis PAF (paroxysmal atrial fibrillation) (H) Atrial fibrillation documented in this encounter Care Teams Antenna Rigger Relationship Specialty Start Date End Date Graham Licona MD PCP - General Family Practice 04/13/17 01/15/18 [facility] [address] [place] [address] documented as of this encounter
--- OUTSIDE RECORDS SUMMARY | 2022-09-12 09:23 | XMS_ITS | Encounter Summary ---
:1940 Author Organization [place] Address [address] [facility] [place] [address] Care Team Providers Name Role Phone Graham Licona MD Primary Care Provider Reason for Visit Reason Comments Pacemaker Check Courtesy/Alert Encounter Details Date Type Department Care Team Description 04/19/2017 Allied Health/Nurse [facility] Pac emaker Check Visit [facility] [place] (Courtesy/Alert) [address] [facility] [address] [place] [phone] Social History Tobacco Use Types Packs/Day Years Used Date Smoking Tobacco: Never Alcohol Use Standard Drinks/Week Comments No 0 (1 standard drink = 0.6 oz pure alcoho l) Sex Assigned at Date Recorded Not on file documented as of this encounter Progress Notes Quang Montalvo, RN - 04/19/2017 4:30 PM CDT Iptivia Essentio PPM Courtesy/ No Charge Alert received for VT episodes. EGMs reviewed showing AF with RVR between 21 seconds and 1 minute and 13 seconds. Patient has know AF. Will continue to monitor. YYanLev documented in this encounter Plan of Treatment Upcoming Encounters Date Type Specialty Care Team Description 09/28/2022 Lab Lab 09/28/2022 Office Visit Cardiology Timothy Smith MD [address] [facility] [address] [place] [phone] Trudi Grayson APRN FIELD OPERATIONS FARM MANAGER [address] [place] [phone] 11/16/2022 Ancillary Procedure Cardiology Timothy Smith MD [address] [place] [phone] (Wo rk) documented as of this encounter Visit Diagnoses Diagnosis Cardiac pacemaker in situ - Primary documented in this encounter Care Teams County Agent Relationship Specialty Start Date End Date Graham Licona MD PCP - General Family Practice 04/13/17 01/15/18 [facility] [address] [place] [address] documented as of this encounter
--- OUTSIDE RECORDS SUMMARY | 2022-09-12 09:23 | XMS_ITS | Encounter Summary ---
:1940 Author Organization [place] Address [address] [facility] [place] [address] Care Team Providers Name Role Phone Graham Licona MD Primary Care Provider Reason for Visit Reason Onset Date Comments Prior Auth - Medication 12/28/2017 apixaban ANTICOA GULANT (ELIQUIS) 5 MG tablet -TIER EXCEPTION approved Encounter Details Date Type Department Care Team Description 12/28/[address] [facility] Timothy Smith MD Prior Auth - Medication [facility] [place] [address] (apixaban ANTICOAGULANT [address] (ELIQUIS) 5 MG tablet [facility] [address] [place] [address] -TIER EXCEPTION approved [place] [phone] ) Social History Tobacco Use Types Packs/Day [...] Reference #: CMM GALICIA [id number] Insurance Company: [employer] [phone] Which Pharmacy is filling the prescription (Not needed for infusion/clinic administered): [facility] [address] [place], [place] - [address] [facility] Notified: Yes Patient Notified: No Telephone Encounter - Janette Archer - 01/02/2018 3:58 PM CDT Images from the original note were not included. Central Prior Authorization Team PA Initiation Medication: apixaban ANTICOAGULANT (ELIQUIS) 5 MG tablet -TIER EXCEPTION Insurance Company: [employer] - Pharmacy Filling the Rx: [id number] - [place], [place] - [address] [facility] Filling Pharmacy Start Date: 01/02/2018 Telephone Encounter - Latesha Rider - 12/28/2017 3:03 PM CDT Central Prior Authorization Team Received call from patient. He states his copay is now $590.00 and needs another tier exception. Patient's phone: [phone] documented in this encounter Plan of Treatment Upcoming Encounters Date Type Specialty Care Team Description 09/28/2022 Lab Lab 09/28/2022 Office Visit Cardiology Timothy Smith MD [address] [place] [phone] Trudi Grayson APRN SEED EXPERT [address] [place] [address] 11/16/2022 Ancillary Procedure Cardiology Timothy Smith MD [address] [place] [address] (Wo rk) documented as of this encounter Visit Diagnoses Not on filedocumented in this encounter Care Teams Hose Tender Relationship Specialty Start Date End Date Graham Licona MD PCP - General Family Practice 04/13/17 01/15/18 [facility] [address] [place] [address] documented as of this encounter
--- OUTSIDE RECORDS SUMMARY | 2022-09-12 09:23 | XMS_ITS | Encounter Summary ---
:1940 Author Organization [place] Address [address] [facility] [place] [address] Care Team Providers Name Role Phone Nas Cardenas MD Primary Care Provider Unavailable Reason for Visit Reason Onset Date Comments Results 01/15/2017 Holter Encounter Details Date Type Department Care Team Description 01/15/2017 Telephone [facility] Heart Fabiola Hurtado, Results (Holter) Clinic [place] RN, RN [address] [facility] HEART [address] [facility] [place] [phone] [address] [facility] [phone] [facility] [place] [address] (Wo rk) Social History Tobacco Use [...] [address] [place] [phone] Trudi Grayson APRN GROUP UNDERWRITER [address] [place] [id number] 11/16/2022 Ancillary Procedure Cardiology Timothy Smith MD [address] [place] [phone] (Wo rk) documented as of this encounter Visit Diagnoses Not on filedocumented in this encounter Care Teams Nuclear Medicine Officer Relationship Specialty Start Date End Date Nas Cardenas MD PCP - General Family Practice 02/01/12 04/12/17 documented as of this encounter
--- OUTSIDE RECORDS SUMMARY | 2022-09-12 09:23 | XMS_ITS | Encounter Summary ---
:1940 Author Organization [place] Address [address] [facility] [place] [address] Care Team Providers Name Role Phone Nas Cardenas MD Primary Care Provider Unavailable Reason for Visit (Routine) - Closed Specialty Diagnoses / Procedures Referred By Contact Refer red To Contact Cardiology Diagnoses Per Li, 24 hour holter, AFIB Zzrh Cardiac Test [facility] Procedures HOLTER MONITOR [address] [place], [place] [address] Phone: Fax: Referral ID Status Reason Start Date Expiration Date Visits Requ ested Visits Authorized [id number] Closed 01/03/2017 01/03/2018 1 1 Encounter Details Date Type Department Care Team Description 01/04/2017 Hospital Encounter [place] [facility] Timothy Smith MD [facility] [address] fibrillation (H) [address] [place] [address] [place], [place] [phone] (Work) [phone] Social History Tobacco Use Types Packs/Day Years [...] MD [address] [place] [address] Trudi Grayson APRN MEDICAL ADVISOR [address] [place] [phone] 11/16/2022 Ancillary Procedure Cardiology Timothy Smith MD [address] [place] [phone] (Wo rk) documented as of this encounter Procedures Procedure Name Priority Date/Time Associated Diagnosis Comme nts HOLTER MONITOR 24 Routine 01/08/2017 Paroxysmal atrial Resul ts for this HOUR - ADULT fibrillation (H) procedure a re in the results section . documented in this encounter Results Holter Monitor 24 hour - Adult (01/08/2017) Narrative RADIANT - 01/08/2017 [facility] [address] [place] [address] [address] [facility] [address] 01/04/2017 Patient: ??Haris Bullard [facility] Chart: [id number] : ??1940 Age: ??76 year old Sex: ??male Procedure: ??Holter Monitor Placed: plea se see scanned document for result once interpretation is completed. Treasurer performing hook-up: ??Sheri Yuen Timothy Smith MD CV CARDIAC SERVICES ORDERABL ES Performing Organization Address City/State/ZIP Code Phon e Number RADIANT documented in this encounter Visit Diagnoses Diagnosis Paroxysmal atrial fibrillation (H) Atrial fibrillation documented in this encounter Care Teams Dynamite Shooter Relationship Specialty Start Date End Date Nas Cardenas MD PCP - General Family Practice 02/01/12 04/12/17 documented as of this encounter
--- OUTSIDE RECORDS SUMMARY | 2022-09-12 09:23 | XMS_ITS | Encounter Summary ---
:1940 Author Organization [place] Address [facility] [place] [address] Care Team Providers Name Role Phone Nas Cardenas MD Primary Care Provider Unavailable Reason for Visit Reason Comments Pacemaker Check PPM Latitude NXT Encounter Details Date Type Department Care Team Description 06/28/2016 Allied Health/Nurse [facility] Pac emaker Check (PPM Visit [facility] [place] Latitude NXT) [address] [place] [address] [address] [place] [phone] Social History Tobacco Use Types Packs/Day Years Used Date Smoking Tobacco: Never Alcohol Use Standard Drinks/Week Comments No 0 (1 standard drink = 0.6 oz pure alcoho l) Sex Assigned at Date Recorded Not on file documented as of this encounter Progress Notes Sary Riojas - 06/28/2016 9:00 AM CDT 90 day Latitude NXT Remote PPM Device Check AP: 2% CAREER CONSULTANT: 14% Mode: DDDR Underlying Rhythm: Aflutter with [...] [address] [place] [phone] Trudi Grayson APRN CNP [address] [place] [address] 11/16/2022 Ancillary Procedure Cardiology Timothy Smith MD [address] [place] [phone] (Wo rk) documented as of this encounter Procedures Procedure Name Priority Date/Time Associated Diagnosis Comme [facility] Z PM DEVICE Routine 06/28/2016 9:13 AM Cardiac pacemaker in INTERROGATE REMOTE, UP CDT situ TO 90 DAYS, LEAD/LEADLESS HC INTERR DEVICE EVAL Routine 06/28/2016 Cardiac pacemaker i n REMOTE, PM/LDLS PM/ICD, situ UP TO 90 DAYS documented in this encounter Results INTERROGATION DEVICE EVAL REMOTE, PACER/ICD (50765) (06/28/2016) Narrative This result has an attachment that is no t available. Basil Guadalupe MD PROCEDURES documented in this encounter Visit Diagnoses Diagnosis Cardiac pacemaker in situ - Primary documented in this encounter Care Teams Funeral Service Apprentice Relationship Specialty Start Date End Date Nas Cardenas MD PCP - General Family Practice 02/01/12 04/12/17 documented as of this encounter
--- OUTSIDE RECORDS SUMMARY | 2022-09-12 09:23 | XMS_ITS | Encounter Summary ---
:1940 Author Organization [place] Address [facility] [place] [address] Care Team Providers Name Role Phone Nas Cardenas MD Primary Care Provider Unavailable Reason for Visit Reason Comments Pacemaker Check PPM Latitude Encounter Details Date Type Department Care Team Description 01/03/2017 Allied Health/Nurse [facility] Pac emaker Check (PPM Visit Heart Clinic [facility]) [address] [place] [address] [address] [place] [phone] Social History Tobacco Use Types Packs/Day Years Used Date Smoking Tobacco: Never Alcohol Use Standard Drinks/Week Comments No 0 (1 standard drink = 0.6 oz pure alcoho l) Sex Assigned at Date Recorded Not on file documented as of this encounter Progress Notes Rachel Freedman - 01/03/2017 11:45 AM CDT [employer] Essentio (D) Remote PPM Device Check AP: 2 % IT PROJECT MANAGER: 14 % Mode: DDDR Presenting Rhythm: Aflutter/IT PROJECT MANAGER Heart Rate: Adequate rates per histogram Sensing: Stable Pacing Threshold: Stable Impedance: Stable Battery Status: 13.5 years Atrial Arrhythmia: Patient remains in mode switch 100% of the time. Ventricular rates controlled. Taking Eliquis. Ventricular Arrhythmia: Pt continues to have brief ventricular high rate episodes. EGMs available show Aflutter with RVR. Reviewed findings with SIENNA Swayer. Care Plan: F/u annual threshold in 3 months. Gave patient results over the phone. KAE Mahoney documented in this encounter Plan of Treatment Upcoming Encounters Date Type Specialty Care Team Description 09/28/2022 Lab Lab 09/28/2022 Office Visit Cardiology Timothy Smith MD [address] [place] [phone] Trudi Grayson APRN CLEARING TUB WORKER [address] [place] [phone] 11/16/2022 Ancillary Procedure Cardiology Timothy Smith MD [address] [place] [phone] (Wo rk) documented as of this encounter Procedures Procedure Name Priority Date/Time Associated Diagnosis Comme nts [facility] PM DEVICE Routine 01/03/2017 9:24 AM Cardiac pacemaker in INTERROGATE REMOTE, UP CDT situ TO 90 DAYS, LEAD/LEADLESS HC INTERR DEVICE EVAL Routine 01/03/2017 Cardiac pacemaker i n REMOTE, PM/LDLS PM/ICD, situ UP TO 90 DAYS documented in this encounter Results INTERROGATION DEVICE EVAL REMOTE, PACER/ICD (95883) (01/03/2017) Narrative This result has an attachment that is no t available. Timothy Smith MD PROCEDURES documented in this encounter Visit Diagnoses Diagnosis Cardiac pacemaker in situ - Primary documented in this encounter Care Teams Seismograph Shooter Relationship Specialty Start Date End Date Nas Cardenas MD PCP - General Family Practice 02/01/12 04/12/17 documented as of this encounter
--- OUTSIDE RECORDS SUMMARY | 2022-09-12 09:23 | XMS_ITS | Encounter Summary ---
:1940 Author Organization [place] Address [facility] [place] [address] Care Team Providers Name Role Phone Graham Licona MD Primary Care Provider Reason for Visit Reason Onset Date Comments Refill Request 05/23/2017 pt was granted tier acception for eliquis Encounter Details Date Type Department Care Team Description 05/23/2017 Refill [facility] Heart Zarina Smith MD Refill Request (pt [facility] [place] [address] granted tier acception [address] [facility] [address] for eliquis) [address] [place] [address] [place] [phone] Social History Tobacco Use Types Packs/Day Years Used Date Smoking Tobacco: Never Alcohol Use Standard Drinks/Week Comments No 0 (1 standard drink = 0.6 oz pure alcoho l) Sex Assigned at Date Recorded Not on file documented as of this encounter Plan of Treatment Upcoming Encounters Date Type Specialty Care Team Description 09/28/2022 Lab Lab 09/28/2022 Office Visit Cardiology Timothy Smith MD [address] [place] [phone] Trudi Grayson APRN LIGHTING SPECIALIST [address] [place] [phone] 11/16/2022 Ancillary Procedure Cardiology Timothy Smith MD [address] [place] [phone] (Wo rk) documented as of this encounter Visit Diagnoses Diagnosis Paroxysmal atrial fibrillation (H) Atrial fibrillation documented in this encounter Care Teams Intermodal Owner Operator Truck Driver Relationship Specialty Start Date End Date Graham Licnoa MD PCP - General Family Practice 04/13/17 01/15/18 [facility] [address] [place] [address] documented as of this encounter
--- OUTSIDE RECORDS SUMMARY | 2022-09-12 09:23 | XMS_ITS | Encounter Summary ---
:1940 Author Organization [place] Address [address] [place] [address] Care Team Providers Name Role Phone Graham Licona MD Primary Care Provider Reason for Visit Reason Onset Date Comments Refill Request 05/07/2017 Encounter Details Date Type Department Care Team Description 05/07/2017 Refill [facility] Clinic Selena Reynoso RN Refill Request [facility] [address] [facility] [address] [place] [phone] Social History Tobacco Use Types Packs/Day Years [...] [address] [place] [address] Trudi Grayson APRN CRYPTOLOGICAL TECHNICIAN [address] [place] [phone] 11/16/2022 Ancillary Procedure Cardiology Timothy Smith MD [address] [place] [phone] (Wo rk) documented as of this encounter Visit Diagnoses Diagnosis PAF (paroxysmal atrial fibrillation) (H) - Primary Atrial fibrillation documented in this encounter Care Teams Window Cutter Relationship Specialty Start Date End Date Graham Licona MD PCP - General Family Practice 04/13/17 01/15/18 [facility] [address] [place] [address] documented as of this encounter
--- OUTSIDE RECORDS SUMMARY | 2022-09-12 09:24 | XMS_ITS | Encounter Summary ---
:1940 Author Organization [place] Address [address] [facility] [place] [address] Care Team Providers Name Role Phone Nas Cardenas MD Primary Care Provider Unavailable Reason for Referral - Closed Specialty Diagnoses / Procedures Referred By Contact Refer red To Contact Ankur Smith MD [address] [place] [address] Referral ID Status Reason Start Date Expiration Date Visits Requ ested Visits Authorized [id number] Closed 12/10/2015 06/07/2016 1 1 Reason for Visit Reason Comments Annual Visit feeling well - ekg done Encounter Details Date Type Department Care Team Description 12/10/2014 Office Visit [facility] Ankur Smith MD Atrial flutter (H) [facility] [place] [address] (Primary Dx) [address] [phone] [facility] [address] [place] [address] [place] [phone] Social History Tobacco Use Types Packs/Day Years [...] CDT December 10, 2014 Nas Cardenas MD [facility] [address] [place] [address] RE: Radha Villa : [address] [...] right eye melanoma. He got treatment at [facility] and has had some impaired vision [...] MD MT: MANDIE Name: RADHA VILLA Account: [id number] : 1940 Service Date: 12/10/2014 Document: [id number] Ankur Smith MD - 12/10/2014 2:26 PM [...] [address] [place] [address] Trudi Garyson APRN AUTO APPRENTICE MECHANIC [address] [place] [address] 11/16/2022 Ancillary Procedure Cardiology Ankur Smith MD [address] [place] [phone] (Wo rk) Scheduled Referrals Name Type Priority Associated Diagnoses Order S chedule Follow-Up with Referral Routine Atrial Flutter (H) Expecte d: Account Planner 12/10/19 16 (Approximate), Expires: 04/23/2016 documented as [...] flutter documented in this encounter Care Teams Data Modeling Specialist Relationship Specialty Start Date End Date Nas Cardenas MD PCP - General Family Practice 02/01/12 04/12/17 documented as of this encounter
--- OUTSIDE RECORDS SUMMARY | 2022-09-12 09:24 | XMS_ITS | Encounter Summary ---
:1940 Author Organization [place] Address [address] [facility] [address] Care Team Providers Name Role Phone Herminia Coleman MD Primary Care Provider Unavailable Graham Licona MD Primary Care Provider [facility] Primary Care Provider [phone] Slava Hernandez PA-C Primary Care Provider Timothy Smith MD Unavailable Graham Licona MD Primary Care Provider Encounter Details Date Type Department Care Team Description 05/23/2013 Office Visit-[facility] Heart Rafael Smith MD [facility] [address] [facility] [address] [place] [address] [place] [phone] Social History Tobacco Use Types Packs/Day Years [...] old Referring Physician: HERMINIA COLEMAN Referring Clinic: [facility] CURRENT DIAGNOSES 1. - Hyperlipidemia, 272.4 2. [...] hr, 1 p.o. twice daily, #180 (One [place] Eighty) MEDICATIONS REFILLED/STOPPED TODAY: metoprolol succinate 50 [...] MD [address] [place] [id number] Trudi Grayson APRN MANUFACTURING PROCESS TECHNICIAN [address] [place] [address] 11/16/2022 Ancillary Procedure Cardiology Timothy Smiht MD [address] [place] [id number] (Wo rk) documented as of this encounter Visit Diagnoses Not on filedocumented in this encounter Care Teams Stunner Animal Relationship Specialty Start Date End Date Herminia Coleman, PCP - General Family Practice 02/01/1203/31 Graham Moon MD PCP - General Family Practice 04/13/17 01/15/18 [facility] [address] [place] [address] [facility] - [facility] 01/16/18 07/01/18 [place] [address] [place] [phone] Slava Hernandez, PCP - General Physician Mid Level Java Developer 07/02/1806/02 PA-C [facility] [address] [place] [address] Graham Licona MD PCP - General Family Medicine 06/30/21 [facility] [address] [place] [address] Timothy Smith MD Assigned Heart and 07/23/20 [address] Vascular Provider [address] [place] [id number] documented as of this encounter
--- OUTSIDE RECORDS SUMMARY | 2022-09-12 09:24 | XMS_ITS | Encounter Summary ---
:1940 Author Organization [place] Address [address] [facility] [place] [address] Care Team Providers Name Role Phone Nas Cardenas MD Primary Care Provider Unavailable Reason for Referral - Closed Specialty Diagnoses / Procedures Referred By Contact Refer red To Contact Diagnoses Typical atrial flutter (H) Ankur Smith MD [address] [place] [id number] Referral ID Status Reason Start Date Expiration Date Visits Requ ested Visits Authorized [id number] Closed 12/19/2017 12/19/2018 1 1 Reason for Visit Reason Comments Atrial Fib yearly f/u - Closed Specialty Diagnoses / Procedures Referred By Contact Refer red To Contact Ankur Smith MD [address] [place] [id number] Referral ID Status Reason Start Date Expiration Date Visits Requ ested Visits Authorized [id number] Closed 12/10/2015 06/07/2016 1 1 Encounter Details Date Type Department Care Team Description 12/20/2015 Office Visit [facility] Ankur Smith MD Benign essential hypertension (Primary D x); [facility] [place] [address] Typical atrial flutter (H) [address] [facility] [address] [facility] [address] [place] [address] [place] [phone] Social History Tobacco Use Types Packs/Day Years [...] CDT December 20, 2015 [place] [address] RE: Radha Farooq : [address] [...] first-degree AV block with a relatively long SD interval. ASSESSMENT AND RECOMMENDATIONS: Mr. Farooq is doing reasonably well. His angina is occasional and infrequent. I agree for him to use nitroglycerin. However, if the angina frequency increases, we may have to repeat coronary angiography. His last coronary angiography was in 2011. He is known to have normal LV function. Based on his very long SD interval, I have asked him to change [...] MD MT: KALPESH Name: RADHA FAROOQ Account: [id number] : 1940 Service Date: 12/20/2015 Document: [id number] Ankur Smith MD - 12/20/2015 10:15 AM CDT HPI and Plan: See dictation Orders Placed This Encounter Procedures ??? Follow-Up with Cardiac Advanced Practice Provider ??? Follow-Up with Label Coder ??? EKG 12-lead complete w/read - Clinics [...] Ankur Smith MD [facility] [address] [place] [id number] documented in this encounter Plan of Treatment Upcoming Encounters Date Type Specialty Care Team Description 09/28/2022 Lab Lab 09/28/2022 Office Visit Cardiology Ankur Smith MD [address] [place] [id number] Trudi Grayson APRN MESSENGER FLOORPERSON [address] [place] [address] 11/16/2022 Ancillary Procedure Cardiology Ankur Smith MD [address] [place] [id number] (Wo rk) Scheduled Referrals Name Type Priority Associated Diagnoses Order S chedule Follow-Up with Referral Routine Typical atrial Expected: Label Coder flutter (H) 12/20/19 18 (Approximate), Expires: 05/03/2018 [...] flutter documented in this encounter Care Teams Liquefied Natural Gas Plant Operator Relationship Specialty Start Date End Date Nas Cardenas MD PCP - General Family Practice 02/01/12 04/12/17 documented as of this encounter
--- OUTSIDE RECORDS SUMMARY | 2022-09-12 09:24 | XMS_ITS | Encounter Summary ---
:1940 Author Organization [place] Address [address] [facility] [address] Care Team Providers Name Role Phone Nas Cardenas MD Primary Care Provider Unavailable Encounter Details Date Type Department Care Team Description 02/27/2013 Historic Results [facility] Heart Unknown, [facility] [address] [facility] [address] [place] [phone] [...] 09/28/2022 Office Visit Cardiology Timothy Smith MD [address] [place] [id number] Trudi Grayson, [employer] [address] [place] [id number] 11/16/2022 Ancillary Procedure Cardiology Timothy Smith MD [address] [place] [id number] (Wo rk) documented as of this encounter [...] on filedocumented in this encounter Care Teams Sawsmith Relationship Specialty Start Date End Date Nas Cardenas MD PCP - General Family Practice 02/01/12 04/12/17 documented as of this encounter
--- OUTSIDE RECORDS SUMMARY | 2022-09-12 09:24 | XMS_ITS | Encounter Summary ---
:1940 Author Organization [place] Address [address] [facility] [place] [address] Care Team Providers Name Role Phone Herminia Coleman MD Primary Care Provider Unavailable Graham Licona MD Primary Care Provider [facility] Primary Care Provider [phone] Slava Hernandez PA-C Primary Care Provider Timothy Smith MD Unavailable Graham Licona MD Primary Care Provider Encounter Details Date Type Department Care Team Description 09/12/2013 Office Visit-[facility] [facility] Patt Torres PA-C [address] [facility] [address] [place] [address] [place] [address] [phone] Social History Tobacco Use Types Packs/Day Years [...] Referring Physician: HERMINIA COLEMAN Referring Clinic: [facility] CURRENT DIAGNOSES 1. - Hyperlipidemia, 272.4 2. - Hypertension, 401.1 3. [place]-Recent Unspecified, 410.91 4. - CAD, 414.00 5. [...] 2013. He saw Dr. 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 He does workout at [employer] three times weekly and states he has [...] Occupation - retired; Residence - lives in [place] year round; REVIEW OF SYSTEMS GENERAL See [...] tablet, 1 p.o. twice daily, #180 (One [place] Eighty) MEDICATIONS STOPPED TODAY: losartan 25 mg [...] MD [address] [place] [id number] Trudi Grayson APRN MEAT HANGER [address] [place] [address] [address] 11/16/2022 Ancillary Procedure Cardiology Timothy Smith MD [address] [place] [id number] (Wo rk) documented as of this encounter Visit Diagnoses Not on filedocumented in this encounter Care Teams Combustion Analyst Relationship Specialty Start Date End Date Herminia Coleman, PCP - General Family Practice 02/01/1203/31 Graham Moon MD PCP - General Family Practice 04/13/17 01/15/18 [facility] [address] [place] [address] Vinny Reinoso PCP - General 01/16/18 07/01/[address] [place] [id number] [place] [phone] Slava Hernandez, PCP - General Physician Crisis Worker 07/02/1806/02 PA-C [facility] [id number] [place] [address] Graham Licona MD PCP - General Family Medicine 06/30/21 [facility] [address] [place] [address] Timothy Smith MD Assigned Heart and 07/23/[address] Vascular Provider [address] [place] [address] documented as of this encounter
--- OUTSIDE RECORDS SUMMARY | 2022-09-12 09:24 | XMS_ITS | Encounter Summary ---
:1940 Author Organization [place] Address [address] [facility] [place] [address] Care Team Providers Name Role Phone Nas Cardenas MD Primary Care Provider Unavailable Reason for Visit Reason Onset Date Comments Other 04/06/2016 left messge stating he was not going to start warfarin Encounter Details Date Type Department Care Team Description 04/06/2016 Telephone [facility] Fabiola Hurtado (left messge Clinic Patt Bui, RN, RN stating he was not [address] [facility] HEART going to start [facility] [address] CLINIC warfarin) [place] [phone] [address] [facility] [phone] [place] [address] [place] [id number] Social History Tobacco Use Types Packs/Day Years [...] and refused to drive during this time. Supa,RN documented in this encounter Plan of Treatment Upcoming Encounters Date Type Specialty Care Team Description 09/28/2022 Lab Lab 09/28/2022 Office Visit Cardiology Timothy Smith MD [address] [place] [address] Trudi Grayson APRN BUSINESS PARTNER [address] [id number] 11/16/2022 Ancillary Procedure Cardiology Timothy Smith MD [address] [place] [id number] (Wo rk) documented as of this encounter Visit Diagnoses Not on filedocumented in this encounter Care Teams Barrel Polisher Relationship Specialty Start Date End Date Nas Cardenas MD PCP - General Family Practice 02/01/12 04/12/17 documented as of this encounter
--- OUTSIDE RECORDS SUMMARY | 2022-09-12 09:24 | XMS_ITS | Encounter Summary ---
:1940 Author Organization [place] Address [address] [facility] [place] [address] Care Team Providers Name Role Phone Nas Cardenas MD Primary Care Provider Unavailable Encounter Details Date Type Department Care Team Description 02/27/2013 Results Only [facility] Timothy Smith MD Hospital Results [address] [place] [phone] (Wo rk) Social History Tobacco Use Types [...] [address] [place] [id number] Trudi Grayson APRN DONOR SERVICES SPECIALIST [address] [id number] 11/16/2022 Ancillary Procedure Cardiology Timothy Smith MD [address] [place] [phone] (Wo rk) documented as of this encounter [...] using the Seldi nger technique, a 5 [place] decapolar catheter was inserted through the left [...] tricuspid isthmus. ??The ablation catheter was from [facility] with 8 mm tip. ??The ablation [...] using the Sel[place] er technique, a 5 [place] decapolar catheter was inserted through the left [...] tricuspid isthmus. The ablation catheter was from [facility] with 8 mm tip. The ablation [...] on filedocumented in this encounter Care Teams Job Press Feeder Relationship Specialty Start Date End Date Nas Cardenas MD PCP - General Family Practice 02/01/12 04/12/17 documented as of this encounter
--- OUTSIDE RECORDS SUMMARY | 2022-09-12 09:24 | XMS_ITS | Encounter Summary ---
:1940 Author Organization [place] Address [address] [place] [address] Care Team Providers Name Role Phone Herminia Coleman MD Primary Care Provider Unavailable Reason for Referral - Closed Specialty Diagnoses / Procedures Referred By Contact Refer red To Contact Diagnoses Sinoatrial node dysfunction (H) Ankur Smith MD [address] [place] [address] Referral ID Status Reason Start Date Expiration Date Visits Requ ested Visits Authorized [id number] Closed 03/06/2016 03/06/2017 1 1 Reason for Visit Auth/Cert Specialty Diagnoses / Procedures Referred By Contact Refer red To Contact Coronary Intensive Diagnoses Chest Pain / Unstable Angina ACS (acute coronary syndrome) (HCC) Coronary Care Care Unit [address] 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 He was admitted to [facility] where he was seen by Cardiology and underwent angiography the following day. This showed chronically occluded houlton vessels with patent saphenous vein grafts as [...] discharge. 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 CODE STATUS: Full code. TOTAL DISCHARGE TIME: Greater than 30 minutes. MAYNOR JOYCE DO MT: [id number] Name: RADHA FRAOOQ Account: [id number] : 1940 Admit Date: Discharge Date: 02/04/2016 Document: [id number] cc: Ankur Coleman MD documented in this encounter Discharge Instructions Discharge InstructionsMaynor Joyce DO - 02/04/2016 9:52 AM CDT Ok to restart metformin on 02/05 AttachmentsThe following attachments cannot be sent through Care Everywhere. 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 Willi Colmenares MD [facility] Interval History S: Doing well; no [...] Joyce DO - 02/04/2016 9:17 AM CDT [facility] Hospitalist Progress Note Maynor Joyce D.Jenae Date of service (Date I saw patient): 02/04/2016 Assessment and Plan Radha Farooq is a 75 year old male who was directly admitted from [facility] on 02/02/16 for evaluation of epigastric discomfort, chest pain and elevated troponin concerning for NSTEMI in the setting of known CAD. CAD with 4 vessel bypass 1987 with NSTEMI: Initially presented in [place] with epigastric discomfort and found to have elevated troponin. Troponin stable around 0.4. Angiogram 02/02 showed occluded LMand RCA, patent to LAD, Diagonal, OM and PDA. - cards recommends medical management - Continue FIELD MARKETING SPECIALIST ASA, lisinopril, and simvastatin - metoprolol on hold as of 02/02 given five second pause - Appreciate Cardiology assistance. Five second sinus pause: noted on tele evening of 02/02. On toprol XL 50 mg daily FIELD MARKETING SPECIALIST. -metoprolol dc 02/02 -EP consult pending GERD: [...] A1C 9.0 (7.9 in 10/16 per CareEverywhere) FIELD MARKETING SPECIALIST regimen Metformin 1000 mg/d and Glipizide 5 [...] Herman PA-C - 02/03/2016 9:58 AM CDT [facility] Hospitalist Progress Note Date of Service (when I saw the patient): 02/03/2016 Assessment and Plan Radha Farooq is a 75 year old male who was directly admitted from [facility] on 02/02/16 for evaluation of epigastric discomfort, chest pain and elevated troponin concerning for NSTEMI in the setting of known CAD. CAD with 4 vessel bypass 1987 with NSTEMI - Initially presented in [place] with epigastric discomfort and found to have elevated troponin - Trop trend 0.407--0.411--0.395 - Continues on heparin and nitroglycerin drip as well as FIELD MARKETING SPECIALIST ASA, lisinopril, Toprol XL and simvastatin -Appreciate [...] 9.0 (7.9 in 10/16 per CareEverywhere) - FIELD MARKETING SPECIALIST regimen Metformin 1000 mg/d and Glipizide 5 [...] EVALUATION. CXR RESULTS ARE NOT AVAILABLE FROM [facility] AND NEED TO BE REVIEWED-PENDING. Addendum: CXR results received from [place] radiology. Radiology read- no acute abnormality. documented [...] approximately 0.3. He was then transferred to [facility] for further evaluation. Prior to [...] eye melanoma, status post treatment at the [facility]. 6. Metabolic syndrome. 7. Diabetes mellitus [...] 98.5 degrees, pulse 83, respiratory rate 20, [id number]% on room air. GENERAL: This is a [...] MT: Name: RADHA FAROOQ MRN: [id number] Account: [id number] : 1940 Admitted: [id number] Document: [id number] cc: Herminia Coleman MD documented in this [...] sent for coronary angiography that showed occluded houlton RCA, but the bypass graft was patent. [...] EM#[id number] Name: RADHA FAROOQ MRN: [id number] Account: [id number] : 1940 Consult Date: 02/04/2016 Document: [id number] cc: Maynor Joyce DO Siddharth Singleton DO - 02/03/2016 9:27 AM CDT CARDIOLOGY CONSULTATION DATE OF SERVICE: 02/03/2016. REQUESTING PHYSICIAN: Blane Pina MD. REASON FOR REFERRAL: Chest pain and elevated cardiac enzymes. HISTORY OF PRESENT ILLNESS: I have been asked to evaluate Radha Farooq, a very pleasant 75-year-old male for the above. He was initially seen at [facility] emergency room for the above symptoms [...] described as anginal. Mr. Farooq presented to [facility] after experiencing what he thought was acid reflux. He had had some pressure or fullness in the epigastric area. He found some partial relief with belching and he has had some partial relief with baking soda and water. He has not attempted to take sublingual nitroglycerin for his symptoms. At [place] he was noted to have elevated cardiac enzymes; therefore, he was transferred here for further care and evaluation. I did review the electrocardiogram from his admission which demonstrates a sinus rhythm with a prolonged AK interval. There is no acute STor T-wave abnormalities seen on the EKG. His initial troponin at [place] was 0.26. He presented with continued chest pain at [facility] and was admitted. His troponin [...] His initial blood pressure upon arriving at [place] demonstrated a blood pressure systolic of 111. [...] was reduced recently because of the prolonged AK interval. We are happy to follow along in his care. Please feel free to contact me with any questions you havein regard to his care. SIDDHARTH SINGLETON DO MT: caprice Name: RADHA FAROOQ Account: [id number] : 1940 Consult Date: 02/03/2016 Document: [id number] documented in this encounter Miscellaneous Notes Plan [...] Persons Name: Dr. Joyce Notification Date/Time: 02/04/16 1449 Notification Interaction: Text paged Physician Purpose of [...] voiding in urinal. At 1430, patient put paraprofessional aide light and stated if angio wasn't going [...] Visit Cardiology Ankur Smith MD [address] [place] [address] Trudi Grayson APRN BELLING MACHINE OPERATOR [address] [address] 11/16/2022 Ancillary Procedure Cardiology Ankur Smith MD [address] [place] [id number] (Wo rk) Scheduled Orders Name Type Priority [...] 3:45 CDT PM CDT Blane Pina MD [facility] POCT Performing Organization Address City/State/ZIP Code Phon e Number FV POINT OF CARE TEST, GLUCOSE POINT OF CARE TEST, GLUCOSE Echocardiogram Complete (02/04/2016 3:25 PM CDT) Anatomical Region Laterality Modality Echocardiography Specimen (Source) Anatomical Collection Method Collection Time Re ceived Time Location / / Volume Laterality 02/04/2016 1:04 PM CDT Narrative 02/04/2016 4:07 PM CDT Interpretation Summary ?Version 2 [facility] Echocardiography Laboratory [address] [place] [address] Name: RADHA FAROOQ : 1940 Study Date: 02/04/2016 01:04 PM Age: 75 yrs Gender: Male Patient Location: [facility] Reason For Study: Chest Pain Ordering Physician: MAKSIM HERMAN Referring Physician: HERMIINA COLEMAN Performed By: Slava Mittal RDCS BSA: [...] MD - [id number] Interpretation Summary Version 2 [facility] Echocardiography Laboratory [address] [facility] [place] [address] Name: RADHA FAROOQ : 1940 Study Date: 02/04/2016 01:04 PM Age: 75 yrs Gender: Male Patient Location: [facility] Reason For Study: Chest Pain Ordering Physician: [...] was no complication. PACEMAKER INFORMATION: Pulse generator: [employer] [address] Model L121, [place] [id number]. Atrial lead: [employer] Model 2088TC, SR C [id number]. P-wave 2.7 millivolts. Atrial pacing thr eshold .8 volts. Atrial pace impedence 513 ohms. Ventricular lead: [employer] Model 2088TC, SR [id number]. R-wave 20 millivolts. Ventricular pacing threshold .8 [...] was no complication. PACEMAKER INFORMATION: Pulse generator: [employer] [address] Model L121, [place] [id number]. Atrial lead: [employer] Model 2088TC, SR C [id number]. P-wave 2.7 millivolts. Atrial pacing thr eshold .8 volts. Atrial pace impedence 513 ohms. Ventricular lead: [employer] Model 2088TC, SR [id number]. R-wave 20 millivolts. Ventricular pacing threshold .8 [...] athologist Signature INR 1.00 0.86 - 1.14 [facility] Specimen Anatomical Collection Method Collection Time Receive d Time (Source) Location / / Volume Laterality Blood specimen 02/04/2016 12:03 6 (specimen) PM CDT 12:13 PM CDT Ankur Smith MD LAB - BLOOD ORDERABLES Performing Organization Address City/State/ZIP Code Phon e Number [facility] [address] [place] [address] [phone] [facility] [address] [place] [address], [place] [phone] (ABNORMAL) HCG qualitative (02/04/2016 12:03 PM CDT) [facility] gist Method Time Signature HCG Qualitative Canceled, Test credited NEG [place] Serum Incorrectly ordered by PCU/Clinic [facility] (A) [facility] Specimen Anatomical Collection Method Collection Time Receive d Time (Source) Location / / Volume Laterality Blood specimen 02/04/2016 12:03 6 (specimen) PM CDT 12:13 PM CDT Ankur Smith MD LAB - BLOOD ORDERABLES Performing Organization Address City/State/ZIP Code Phon e Number [facility] [address] [place] [address] [facility] [address] [place] [address], [place] [phone] CBC with platelets (02/04/2016 12:03 PM CDT) athologist Signature WBC 6.4 4.0 - 11.0 [place] 10e9/L [facility] RBC Count 4.80 4.4 - 5.9 [place] 10e12/L [facility] Hemoglobin 15.8 13.3 - [place] 17.7 g/dL [facility] Hematocrit 46.8 40.0 - [place] 53.0 % [facility] MCV 98 78 - 100 [place] fl [facility] MCH 32.9 26.5 - [place] 33.0 pg [facility] MCHC 33.8 31.5 - [place] 36.5 g/dL [facility] RDW 13.6 10.0 - [place] 15.0 % [facility] Platelet Count 206 150 - 450 [place] 10e9/L [facility] Specimen Anatomical Collection Method Collection Time Receive d Time (Source) Location / / Volume Laterality Blood specimen 02/04/2016 12:03 6 (specimen) PM CDT 12:13 PM CDT Ankur Smith MD LAB - BLOOD ORDERABLES Performing Organization Address City/[facility]/ZIP [facility] Phon e Number [facility] [address] [place] [address] [facility] [address] [place] [address], [facility] [phone] (ABNORMAL) Glucose by meter (02/04/2016 11:57 AM CDT) P athologist Signature Glucose 203 (H) 70 - 99 POINT OF CARE mg/dL TEST, GLUCOSE Specimen Anatomical Collection Method Collection Time Receive d Time (Source) Location / / Volume Laterality 02/04/2016 11:57 02/04/2016 AM CDT 12:00 PM CDT Blane LAGUNAS - LIYA POCT Performing Organization Address City/[facility]/ZIP Code Phon e Number FV POINT OF [...] CDT Blane NICKERSON POCT Performing Organization Address City/[facility]/ZIP [facility] Phon e Number FV POINT [...] CDT Blane NICKERSON POCT Performing Organization Address [facility] Phon e Number FV POINT OF CARE [...] CDT Blane NICKERSON POCT Performing Organization Address [facility] Phon e Number FV POINT OF CARE [...] CDT Blane NICKERSON POCT Performing Organization Address [facility]/ZIP Code Phon e Number FV POINT OF CARE TEST, GLUCOSE POINT OF CARE TEST, GLUCOSE Heart Cath Left heart cath (02/03/2016 4:25 PM CDT) Anatomical Region Laterality Modality Radio Fluoroscopy Specimen (Source) Anatomical Location Collection Method / Collectio n Time Received Time / Laterality Volume Impressions 02/03/2016 4:30 PM CDT IMPRESSION: Occluded houlton coronary arteries. Patent bypass ??grafts. PLAN: Medical [...] sterile fashion. Under 1% Lidocaine a 4 Samoan sheath was placed in the right femoral artery using a modifie d Seldinger technique. Coronary angiography was performed with a 4 Samoan JL 4.5 and 3 DRC, multipurpose catheter diagnostic cathete rs. Standard angle and views were used for the right and left coronar ies. ??Wave wire was performed to the RCA graft. This was negative. ??A ortogram was done to look for RCA houlton artery. FINDINGS: See below LEFT MAIN CORONARY [...] sterile fashion. Under 1% Lidocaine a 4 Samoan sheath was placed in the right femoral artery using a modifie d Seldinger technique. Coronary angiography was performed with a 4 Samoan JL 4.5 and 3 DRC, multipurpose catheter diagnostic cathete rs. Standard angle and views were used for the right and left coronar ies. Wave wire was performed to the RCA graft. This was negative. Aor togram was done to look for RCA houlton artery. FINDINGS: See below LEFT MAIN CORONARY [...] widely patent . FFR negative. IMPRESSION: Occluded houlton coronary art eries. Patent bypass grafts. PLAN: Medical management JUAN JOSÉ PERSON MD Siddharth Singleton DO CV CARDIAC CATH ORDERABLE S Activated clotting time POCT (02/03/2016 4:14 PM CDT) P athologist Signature Activated Clot [id number] - [...] P athologist Signature Heparin 10A 0.29 IU/mL [facility] Comment: Therapeutic Range: ?? UFH: ?? 0.15-0.35 [...] LAB - BLOOD ORDERABLES Performing Organization Address City/[facility]/ZIP [facility] Phon e Number [facility] [address] [place] [address] [facility] [address] [place] [address], [place] [phone] (ABNORMAL) Glucose by meter (02/03/2016 12:04 PM CDT) P athologist Signature Glucose 157 (H) 70 - 99 POINT OF CARE mg/dL TEST, GLUCOSE Specimen Anatomical Collection Method Collection Time Receive d Time (Source) Location / / Volume Laterality 02/03/2016 12:04 02/03/2016 PM CDT 12:11 PM CDT Blane LAGUNAS - BEJOHN PAUL POCT Performing Organization Address [facility]/ZIP Code Phon e Number FV POINT OF [...] LAGUNAS - LIYA POCT Performing Organization Address City/[facility]/ZIP Code Phon e Number FV POINT OF CARE TEST, GLUCOSE POINT OF CARE TEST, GLUCOSE (ABNORMAL) Troponin I (02/03/2016 4:50 AM CDT) Analysis Performed At Patho logist Time Signature Troponin I ES 0.395 () 0.000 - [place] 0.045 ug/L [facility] [...] LAB - BLOOD ORDERABLES Performing Organization Address City/[facility]/ZIP Code Phon e Number [facility] [address] [address] [phone] [facility] [address] [address], [facility] [phone] Heparin Xa (10a) Level (02/03/2016 4:50 AM CDT) [facility] gist Method Time Signature Heparin 10A <0.10 IU/mL [facility] Therapeutic Range: [facility] ?? UFH: ?? 0.15-0.35 IU/mL for low [...] LAB - BLOOD ORDERABLES Performing Organization Address City/[facility]/ZIP Code Phon e Number [facility] [address] [address] [phone] [facility] [address] [place] [address], [place] [phone] (ABNORMAL) Basic metabolic panel (02/03/2016 4:50 AM CDT) athologist Signature Sodium 138 133 - 144 [place] mmol/L [facility] Potassium 4.1 3.4 - 5.3 [place] mmol/L [facility] Chloride 103 94 - 109 [place] mmol/L [facility] Carbon Dioxide 26 20 - 32 [place] mmol/L [facility] Anion Gap 9 3 - 14 [place] mmol/L [facility] Glucose 167 (H) 70 - 99 [place] mg/dL [facility] Urea Nitrogen 27 7 - 30 [place] mg/dL [facility] Creatinine 1.02 0.66 - [place] 1.25 mg/dL [facility] GFR Estimate 71 >60 [place] mL/min/1.[address] Comment: Non GFR Calc GFR Estimate If Black 86 >60 mL/min/1.7m2 F [facility] Comment: GFR Calc Calcium 8.4 (L) 8.5 - 10.1 mg/dL [facility] Specimen Anatomical Collection Method Collection Time Receive d Time (Source) Location / / Volume Laterality Blood specimen 02/03/2016 4:50 AM 016 5:01 (specimen) CDT AM CDT Blane Pina MD LAB - BLOOD ORDERABLES Performing Organization Address City/State/ZIP Code Phon e Number [facility] [address] [place] [address] [facility] [address] [place] [address], [place] [phone] (ABNORMAL) Hemoglobin A1c (02/03/2016 4:50 AM CDT) P athologist Signature Hemoglobin A1C 9.0 (H) 4.3 - 6.0 [facility] Specimen Anatomical Collection Method Collection Time Receive d Time (Source) Location / / Volume Laterality Blood specimen 02/03/2016 4:50 AM 016 5:01 (specimen) CDT AM CDT Blane Pina MD LAB - BLOOD ORDERABLES Performing Organization Address City/State/ZIP Code Phon e Number [facility] [address] [place] [address] [facility] [address] [place] [address], [place] [phone] (ABNORMAL) Lipid panel reflex to direct LDL (02/03/2016 4:50 AM CDT) athologist Signature Cholesterol 155 <200 mg/dL [facility] Triglycerides 190 (H) <150 mg/dL [facility] Comment: Borderline high: ??150-199 mg/dl High: ? 200-499 mg/dl Very high: ? >499 mg/dl HDL Cholesterol 31 (L) >39 mg/dL [facility] LDL Cholesterol Calculated 86 <100 mg/dL [facility] Comment: Desirable: <100 mg/dl Non HDL Cholesterol 124 <130 mg/dL [facility] Specimen Anatomical Collection Method Collection Time Receive d Time (Source) Location / / Volume Laterality Blood specimen 02/03/2016 4:50 AM 016 5:01 (specimen) CDT AM CDT Blane Pina MD LAB - BLOOD ORDERABLES Performing Organization Address City/State/ZIP Code Phon e Number [facility] [address] [place] [address] [phone] [facility] [address] [place] [address], [place] [phone] (ABNORMAL) Troponin I - Now then in 4 hours x 3 (02/03/2016 1:40 AM CDT) Analysis Performed At Patho logist Time Signature Troponin I ES 0.441 (HH) 0.000 - [place] 0.045 ug/L [facility] [...] e Number [facility] [address] [place] [address] [facility] [address] [place] [address], [place] [phone] (ABNORMAL) Troponin I - Now then in 4 hours x 3 (02/02/2016 9:40 PM CDT) Analysis Performed At Patho logist Time Signature Troponin I ES 0.407 () 0.000 - [place] 0.045 ug/L [facility] [...] e Number [facility] [address] [place] [address] [facility] [address] [place] [address], [place] [phone] CBC with platelets (02/02/2016 9:40 PM CDT) P athologist Signature WBC 10.3 4.0 - 11.0 [place] 10e9/L [facility] RBC Count 4.63 4.4 - 5.9 [place] 10e12/L [facility] Hemoglobin 15.2 13.3 - [place] 17.7 g/dL [facility] Hematocrit 45.0 40.0 - [place] 53.0 % [facility] MCV 97 78 - 100 [place] fl [facility] MCH 32.8 26.5 - [place] 33.0 pg [facility] MCHC 33.8 31.5 - [place] 36.5 g/dL [facility] RDW 13.6 10.0 - [place] 15.0 % [facility] Platelet Count 196 150 - 450 [place] 10e9/L [facility] Specimen Anatomical Collection Method Collection Time Receive d Time (Source) Location / / Volume Laterality Blood specimen 02/02/2016 9:40 PM 016 9:47 (specimen) CDT PM CDT Blane Pina MD LAB - BLOOD ORDERABLES Performing Organization Address City/State/ZIP Code Phon e Number [facility] [address] [place] [address] [facility] [address] [place] [address], [facility] [phone] (ABNORMAL) Glucose by meter (02/02/2016 9:12 PM [...] Atrial flutter, unspecified Coronary artery disease involving 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 Monitor platelets every three days while [...] Anel Patterson RN) Routine, 3 g, Intravenous, PRE-OP/PRE-AK OCEDURE, Starting on Sun02/04/16 at 1148, For [...] RN)1225 (Given - Provider: Nieves Granado, RN)1743 (z Missed (do not use) - Provider: Sintia Ahuja RN - Reason: Order parameters not met) 0757 (Given - Provider: Den Rose)1356 (z Missed (do not use) - Provider: Anel Patterson RN - Reason: [...] Aspart (NovoLOG) inj (RAPID ACTING) (CANCELED) 2112 (z Missed (do not use) - Provider: Sintia Ahuja RN - Reason: [...] lisinopril (PRINIVIL,ZESTRIL) tablet 20 mg (CANCELED) 0936 (z Missed (do not use) - Provider: Nieves Granado RN - Reason: [...] 0730 pravastatin (PRAVACHOL) tablet 80 mg (CANCELED) 215 ( Given - Provider: Sintia Ahuja RN) 211 (Given - Provider: Sintia Ahuja RN) 80 mg, Oral, AT BEDTIME, First dose on Sun02/02/16 at 2200 sodium chloride (PF) 0.9% PF flush 10 mL (COMPLETED) 1519 (Given - Provider: Slava Mittal) 10 mL, Intravenous, ONCE, On Sun02/04/16 at 1530, For 1 dose sodium chloride (PF) 0.9% PF flush 3 mL (CANCELED) 1820 (z Missed (do not use) - Provider: Sintia Ahuja RN - Reason: IV Infusing) 0653 (Given - Provider: Irish Hicks RN)1527 (z Missed (do not use) - Provider: Anel Patterson RN - Reason: [...] sucralfate (CARAFATE) suspension 1 g (CANCELED) 1211 (z Missed (do not use) - Provider: Nieves Graando RN - Reason: NPO)1818 (Given - Provider: Sintia Ahuja RN) 0651 (Given - Provider: Irish hernandez RN)1216 (z Missed (do not use) - Provider: Anel Patterson RN - Reason: NPO)1720 (z Missed (do not use) - Provider: Anel Wheatley RN - Reason: [...] IV for 2 hours prior to cardiac photographic laboratory supervisor procedure, then decrease to 75 mL/hr [...] SIENNA) at 75 mL/hr, Intravenous, CONTINUOUS, Ad medical claims assistant over 4 Hours, or until patient is [...] recheck in am 5/6 Heparin dosed per [place] P 1525 (S topped - Provider: Paulina Steward RN) rotocol. Monitor platelets every three days while on anticoagula tion therapy. nitroglycerin 50 mg in D5W 250 mL (adult std) infusion (CANCELED) 2123 (New Bag - Provider: Sintia Ahuja RN) 0004 (Rate/Dose Verify - Provider: Nicole Mak RN)0546 (Rate/Dose Change - Provider: Catherine Mak RN)0804 (Rate/Dose Change - Provider: Nieves Granado, SIENNA)0858 [...] 02/04/2016 acetaminophen (TYLENOL) tablet 325-650 mg (CANCELED) 190 (Given - Provider: Sintia Ahuja RN) 325-650 [...] by Other - Provider: Cass Amor, SIENNA) 25-75 mg (10-30 mL), Intradermal, ONCE P [...] Post-procedure documented in this encounter Care Teams Dip Lube Operator Relationship Specialty Start Date End Date Herminia Coleman MD PCP - General Family Practice 02/01/12 04/12/17 documented as of this encounter
--- OUTSIDE RECORDS SUMMARY | 2022-09-12 09:24 | XMS_ITS | Encounter Summary ---
:1940 Author Organization [place] Address [address] [facility] [place] [address] Care Team Providers Name Role Phone Nas Cardenas MD Primary Care Provider Unavailable Reason for Visit (Routine) - Closed Specialty Diagnoses / Procedures Referred By Contact Refer red To Contact Cardiology Diagnoses Per Fabiola Woo Cardiac Test [facility] Procedures HOLTER MONITOR [address] [place], [place] [address] Phone: Fax: Referral ID Status Reason Start Date Expiration Date Visits Requ ested Visits Authorized [id number] Closed 03/29/2016 03/29/2017 1 1 Encounter Details Date Type Department Care Team Description 04/13/2016 Hospital Encounter [facility] Timothy Smith MD SSS (sick sinus syndrome) (H); Care Center [address] [place] [address] Typical atrial flutter (H) [address] [facility] [address] [place] [address] [place], [place] [phone] [address] (Work) [phone] Social History Tobacco Use Types Packs/Day Years [...] 09/28/2022 Office Visit Cardiology Timothy Smith MD [address] [place] [address] Trudi Grayson APRN IRRIGATION INSTALLATION SPECIALIST [address] [address] 11/16/2022 Ancillary Procedure Cardiology Timothy Smith MD [address] [place], [place] [address] (Wo rk) documented as of this encounter Procedures Procedure Name Priority Date/Time Associated Diagnosis Comme nts HOLTER MONITOR 24 HOUR Routine 04/18/2016 SSS (sick sinus Re sults for this - ADULT syndrome) (H) procedure are in the Typical atrial flutter resul ts section. (H) documented in this encounter Results Holter Monitor 24 hour - Adult (04/18/2016) Narrative RADIANT - 04/18/2016 [facility] [address] [place] [address] [address] [facility] [address] 04/13/2016 Patient: ??Haris Bullard [facility] Chart: [id number] : ??1940 Age: ??75 year old Sex: ??male Procedure: ??Holter Monitor Placed: plea se see scanned document for result once interpretation is comple star. Silk Screen Printer performing hook-up: ??Sheri Yuen Timothy Smith MD CV CARDIAC SERVICES ORDERABL ES Performing Organization Address City/State/ZIP Code Phon e Number RADIANT documented in this encounter Visit Diagnoses Diagnosis SSS (sick sinus syndrome) (H) Sinoatrial node dysfunction Typical atrial flutter (H) Atrial flutter documented in this encounter Care Teams Vulcanized Fiber Unit Operator Relationship Specialty Start Date End Date Nas Cardenas MD PCP - General Family Practice 02/01/12 04/12/17 documented as of this encounter
--- OUTSIDE RECORDS SUMMARY | 2022-09-12 09:24 | XMS_ITS | Encounter Summary ---
:1940 Author Organization [place] Address [address] [facility] [place] [address] Care Team Providers Name Role Phone Nas Cardenas MD Primary Care Provider Unavailable Reason for Visit Reason Comments Results Encounter Details Date Type Department Care Team Description 04/24/2016 Documentation Only [facility] [place] , Results Clinic [place] [id number] [place] [address] Social History Tobacco Use Types Packs/Day Years Used Date Smoking Tobacco: Never Alcohol Use Standard Drinks/Week Comments No 0 (1 standard drink = 0.6 oz pure alcoho l) Sex Assigned at Date Recorded Not on file documented as of this encounter Progress Notes Quang Montalvo, RN - 04/24/2016 3:47 PM CDT PA request called in to [phone]. YYangRN Quang Montalvo, RN - 04/24/2016 1:25 PM CDT Holter results reviewed with patient. Latitude monitor blinking light discussed with patient. Patient is scheduled to see Dr. Smith 05/15. Patient had questions about AF Ablation, instructed patient to have that discussion with Dr. Smith. Patient does not want to go on coumadin and can not afford eliquis. Patient is going to curing pickling packer more samples of Eliquis today and will discuss with Dr. Smith about AF Ablation. Will initiate a PA for Eliquis. Janene Catherine Aranda LPN - 04/24/2016 11:03 AM [...] MD [address] [place] [address] Trudi Grayson APRN AGRICULTURAL EQUIPMENT SALESPERSON [address] [address] 11/16/2022 Ancillary Procedure Cardiology Timothy Smith MD [address] [place] [id number] (Wo rk) documented as of this encounter Visit Diagnoses Not on filedocumented in this encounter Care Teams Spike Machine Operator Relationship Specialty Start Date End Date Nas Cardenas MD PCP - General Family Practice 02/01/12 04/12/17 documented as of this encounter
--- OUTSIDE RECORDS SUMMARY | 2022-09-12 09:24 | XMS_ITS | Encounter Summary ---
:1940 Author Organization [place] Address [address] [facility] [place] [address] Care Team Providers Name Role Phone Nas Cardenas MD Primary Care Provider Unavailable Encounter Details Date Type Department Care Team Description 02/27/2013 Historic Results [facility] Heart Unknown, [facility] [address] [facility] [address] [place] [address] Social History [...] 09/28/2022 Office Visit Cardiology Timothy Smith MD [address] [place] [phone] Trudi Grayson, FLACO THERAPEUTIC RIDING INSTRUCTOR [address] [place] [address] 11/16/2022 Ancillary Procedure Cardiology Timothy Smith MD [address] [place] [address] (Wo rk) documented as of this encounter [...] on filedocumented in this encounter Care Teams Fern Picker Relationship Specialty Start Date End Date Nas Cardenas MD PCP - General Family Practice 02/01/12 04/12/17 documented as of this encounter
--- OUTSIDE RECORDS SUMMARY | 2022-09-12 09:24 | XMS_ITS | Encounter Summary ---
:1940 Author Organization [place] Address [address] [place] [address] Care Team Providers Name Role Phone Nas Cardenas MD Primary Care Provider Unavailable Reason for Visit Reason Onset Date Comments Previsit 12/09/2014 Irregular Heart Beat 12/09/2014 Encounter Details Date Type Department Care Team Description 12/09/2014 PRE VISIT [facility] Zarina Smith MD Previsit; [facility] [place] [address] Heart Beat [address] [facility] [address] [facility] [address] [place] [address] [place] [phone] Social History Tobacco Use Types Packs/Day Years [...] [address] [place] [phone] Trudi Grayson APRN CANDY PULLER [address] [place] [address] 11/16/2022 Ancillary Procedure Cardiology Timothy Smith MD [address] [place] [address] (Wo rk) documented as of this encounter Visit Diagnoses Not on filedocumented in this encounter Care Teams Fruit Stuffer Relationship Specialty Start Date End Date Nas Cardenas MD PCP - General Family Practice 02/01/12 04/12/17 documented as of this encounter
--- OUTSIDE RECORDS SUMMARY | 2022-09-12 09:24 | XMS_ITS | Encounter Summary ---
:1940 Author Organization [place] Address On license of [facility] [place] [address] Care Team Providers Name Role Phone Nas Cardenas MD Primary Care Provider Unavailable Reason for Visit Reason Comments Pacemaker Check Encounter Details Date Type Department Care Team Description 02/14/2016 Allied Health/Nurse [facility] Heart Pacemaker Check Visit Clinic [address] [place] [address] Social History Tobacco Use Types Packs/Day Years Used Date Smoking Tobacco: Never Alcohol Use Standard Drinks/Week Comments Yes 0 (1 standard drink = 0.6 oz pure alcoho l) Sex Assigned at Date Recorded Not on file documented as of this encounter Progress Notes Mary Norris, RN, RN - 02/14/2016 11:33 AM CDT [employer] 7-10 day Post Pacemaker Device Check AP: 14 % SUMO WRESTLER: 8 % Mode: DDDR Underlying Rhythm: SR [...] [address] [place] [id number] Trudi Grayson MANGLE TENDER LINOLEUM LAYER HELPER [address] [id number] 11/16/2022 Ancillary Procedure Cardiology Timothy Smith MD [address] [place] [id number] (Wo rk) documented as of this encounter Procedures Procedure Name Priority Date/Time Associated Diagnosis Comme nts HC PM DEVICE PROGRAMMING EVAL, Routine 02/14/2016 Cardiac pa cemaker in situ DUAL LEAD PACER documented in this encounter Results PM DEVICE PROGRAMMING EVAL, DUAL LEAD PACER (36619) (02/14/2016) Narrative This result has an attachment that is no t available. Steven Canchola MD PROCEDURES documented in this encounter Visit Diagnoses Diagnosis Cardiac pacemaker in situ - Primary documented in this encounter Care Teams Mountain Or Glacier Guide Relationship Specialty Start Date End Date Nas Cardenas MD PCP - General Family Practice 02/01/12 04/12/17 documented as of this encounter
--- OUTSIDE RECORDS SUMMARY | 2022-09-12 09:24 | XMS_ITS | Encounter Summary ---
:1940 Author Organization [place] Address [address] [place] [address] Care Team Providers Name Role Phone Nas Cardenas MD Primary Care Provider Unavailable Reason for Visit Reason Onset Date Comments Formulary Issue 03/29/2016 Eliquis and NOACS in general are not covered by his insurance plan Encounter Details Date Type Department Care Team Description 03/29/2016 Telephone [facility] Heart Fabiola Hurtado orlary Issue Clinic [place] Bui RN, RN (Eliquis and NOACS in [address] [facility] HEART genera l are not covered [facility] [address] [facility] by his insurance plan[place] [address] [address] [facility] [phone] [address] [place] [id number] Social History Tobacco Use Types Packs/Day Years [...] office. Paper orders sent to his office ([facility]); 1 month Rx for 5 mg warfarin sent to pharmacy. LSchaeppi documented in this encounter Plan of Treatment Upcoming Encounters Date Type Specialty Care Team Description 09/28/2022 Lab Lab 09/28/2022 Office Visit Cardiology Timothy Smith MD [address] [place] [phone] Trudi Grayson APRN RELIABILITY SPECIALIST [address] [id number] 11/16/2022 Ancillary Procedure Cardiology Timothy Smith MD [address] [place] [id number] (Wo rk) documented as of this encounter Visit Diagnoses Diagnosis Typical atrial flutter (H) - Primary Atrial flutter documented in this encounter Care Teams Carpenter Supervisor Relationship Specialty Start Date End Date Nas Cardenas MD PCP - General Family Practice 02/01/12 04/12/17 documented as of this encounter
--- OUTSIDE RECORDS SUMMARY | 2022-09-12 09:24 | XMS_ITS | Encounter Summary ---
:1940 Author Organization [place] Address [address] [place] [address] Care Team Providers Name Role Phone Nas Cardenas MD Primary Care Provider Unavailable Reason for Referral - Closed Specialty Diagnoses / Procedures Referred By Contact Refer red To Contact Diagnoses Sinoatrial node dysfunction (H) Tammy Montenegro PA-C [address] [place] [address] Referral ID Status Reason Start Date Expiration Date Visits Requ ested Visits Authorized [id number] Closed 12/04/2016 12/04/2017 1 1 Reason for Visit Reason Comments Heart Problem CAD Irregular Heart Beat s/p PPM - Closed Specialty Diagnoses / Procedures Referred By Contact Refer red To Contact Diagnoses Sinoatrial node dysfunction (H) Timothy Smith MD [address] [place] [address] Referral ID Status Reason Start Date Expiration Date Visits Requ ested Visits Authorized [id number] Closed 03/06/2016 03/06/2017 1 1 Encounter Details Date Type Department Care Team Description 03/09/2016 Office Visit [facility] Timothy Smith MD [address] [place] [address] Cardiac pacemaker in situ (Primary Dx); Heart Clinic Tammy Carver PA-C [address] [place] [address] Sinoatrial node dysfunction (H); [address] [facility] Benign es sential hypertension; South [address] Typical atrial flutter (H) [place] [phone] Social History Tobacco Use Types Packs/Day Years [...] on Sunday 6.28 @ 1 PM in [place] - call [phone] if you need to reschedule 2. Reviewed your angiogram/heart catheterization done in the hospital showing all of your bypasses still look great! 3. Continue to monitor for any lightheadedness or chest discomfort. 4. See Dr. Smith in 11/2016 but call earlier if need to be seen or any questions! My nurse is ZEINAB: [phone] documented in this encounter Progress Notes Tammy [...] blood pressure control. Unfortunately, he presented to [facility] on 02/01 and complained about chest fullness and increasing shortness of breath. His troponin was elevated and therefore, he was admitted [facility]. He underwent coronary angiography which showed an occluded [place] RCA, but vein grafts were all patent [...] versus pacemaker implantation. Ultimately, he underwent dual-chamber [employer] pacemaker placement on 02/04/2016. Interestingly, he [...] Asystole. He is now status post dual-chamber [employer] pacemaker implantation. His first device check [...] MT: Name: RADHA VILLA MRN: [id number] Account: [id number] : 1940 Service Date: 03/09/2016 Document: [id number] Tammy Montenegro PA-C - 03/09/2016 9:13 AM CDT HPI and Plan: See dictation #[id number] Orders Placed This Encounter Procedures ??? Follow-Up with Adventure Challenge Instructor ??? EKG 12-lead complete w/read - Clinics [...] person and place CC Nas Cardenas MD [facility] [address] [place] [address] documented in this encounter Plan of Treatment Upcoming Encounters Date Type Specialty Care Team Description 09/28/2022 Lab Lab 09/28/2022 Office Visit Cardiology Timothy Smith MD [address] [place] [id number] Trudi Grayson, FLACO IMPROVEMENT DIRECTOR [address] [address] 11/16/2022 Ancillary Procedure Cardiology Timothy Smith MD [address] [place] [phone] (Wo rk) Scheduled Referrals Name Type Priority Associated Diagnoses Order S chedule Follow-Up with Referral Routine Sinoatrial node Expected: Adventure Challenge Instructor dysfunction (H) 12/04 (Approximate), Expires: 03/09/2017 documented as of this encounter Visit Diagnoses Diagnosis Cardiac pacemaker in situ - Primary Sinoatrial node dysfunction (H) Sinoatrial node dysfunction Benign essential hypertension Essential hypertension, benign Typical atrial flutter (H) Atrial flutter documented in this encounter Care Teams Chief Of Service Relationship Specialty Start Date End Date Nas Cardenas MD PCP - General Family Practice 02/01/12 04/12/17 documented as of this encounter
--- OUTSIDE RECORDS SUMMARY | 2022-09-12 09:24 | XMS_ITS | Encounter Summary ---
:1940 Author Organization [place] Address [address] [facility] [place] [place] [address] Care Team Providers Name Role Phone Herminia Coleman MD Primary Care Provider Unavailable Graham Licona MD Primary Care Provider [facility] Primary Care Provider [phone] Slava Hernandez PA-C Primary Care Provider Timothy Smith MD Unavailable Graham Licona MD Primary Care Provider Encounter Details Date Type Department Care Team Description 03/18/2013 Office Visit-[facility] Heart Radhames Huff vale [facility] [place] PA-C [address] [facility] [address] [place] [phone] Social History Tobacco Use Types Packs/Day Years Used Date Smoking Tobacco: Never Alcohol Use Standard Drinks/Week Comments Yes 0 (1 standard drink = 0.6 oz pure alcoho l) Sex Assigned at Date Recorded Not on file documented as of this encounter Progress Notes Michelle Huff PA-C - 04/26/2013 2:24 PM CDT Progress Note Created by: HANK Arellano [id number] DATE: 03/18/2013 KURTELICIA RADHA DATE OF : 1940 AGE: [age] years old Referring Physician: HERMINIA COLEMAN Referring Clinic: [facility] CURRENT DIAGNOSES 1. - Hyperlipidemia, 272.4 2. - Hypertension, 401.1 3. [place]-Recent Unspecified, 410.91 4. - CAD, 414.00 5. [...] past at another institution. He presented to [facility] last year with chest discomfort and was found to be in atrial flutter. Due to troponin elevation he underwent coronary angiography and was found to have no significant stenosis. No intervention was performed. Subsequently he went to [facility] and underwent a direct current cardioversion. Dr. [...] Weight- 318.00 lbs. Height- 71 BMI Measurement: schoox Error: [[employer]][schoox SQL Aco Coordinator Canary Raiser][SQL Aco Coordinator]Divide by zero error encountered. - 90521 CONSTITUTIONAL cooperative, alert and oriented,well developed, well [...] in 1985 with a four-vessel bypass at [facility]. Subsequent angiography in Jan, 2012, did [...] [address] [place] [address] Trudi Grayson, FLACO CUSTOMER RESOLUTION SPECIALIST [address] [address] 11/16/2022 Ancillary Procedure Cardiology Timothy Smith MD [address] [place] [address] (Wo rk) documented as of this encounter Visit Diagnoses Not on filedocumented in this encounter Care Teams Cigar Patcher Relationship Specialty Start Date End Date Herminia Coleman, PCP - General Family Practice 02/01/1203/31 Graham Moon MD PCP - General Family Practice 04/13/17 01/15/18 [facility] [address] [place] [address] Vinny Reinoso PCP - General 01/16/18 07/01/[address] [place] [id number] [place] [address] [place] [address] Slava Hernandez, PCP - General Physician Rn Support Services 07/02/1806/02 PA-C [facility] [address] [place] [address] Graham Licona MD PCP - General Family Medicine 06/30/21 [facility] [address] [place] [address] Timothy Smith MD Assigned Heart and 07/23/20 [address] [facility] S Vascular Provider [address] [place] [id number] documented as of this encounter
--- OUTSIDE RECORDS SUMMARY | 2022-09-12 09:24 | XMS_ITS | Encounter Summary ---
:1940 Author Organization [place] Address [address] [facility] [place] [address] Care Team Providers Name Role Phone Nas Cardenas MD Primary Care Provider Unavailable Reason for Referral - Closed Specialty Diagnoses / Procedures Referred By Contact Refer red To Contact Diagnoses SSS (sick sinus syndrome) (H) Typical atrial flutter (H) [facility] [address] [facility] [address] [place] [phone] Referral ID Status Reason Start Date Expiration Date Visits Requ ested Visits Authorized [id number] Closed 04/11/2016 04/11/2017 1 1 Reason for Visit Reason Comments Pacemaker Check 6 weeks S/P PPM implant Encounter Details Date Type Department Care Team Description 03/28/2016 Allied Health/Nurse [facility] Pac emaker Check (6 Visit Heart Clinic [place] weeks S/P PPM implant) [address] [facility] [address] [place] [address] Social History Tobacco Use Types Packs/Day Years Used Date Smoking Tobacco: Never Alcohol Use Standard Drinks/Week Comments No 0 (1 standard drink = 0.6 oz pure alcoho l) Sex Assigned at Date Recorded Not on file documented as of this encounter Progress Notes Fabiola Hurtado, RN, RN - 03/28/2016 12:56 PM CDT [employer] (D) Pacemaker Device Check 6 wks S/P implant AP:2 % ICE CREAM VAULT WORKER: 10 % Mode: DDDR 60/130 Underlying Rhythm: A flutter at time of interrogation (mostly 2:1) with v- rate xb50-779 BPM Heart Rate: Evidence on histogram of [...] 09/28/2022 Office Visit Cardiology Timothy Smith MD [address] [place] [address] Trudi Grayson APRN TIRE INSTALLER [address] [id number] 11/16/2022 Ancillary Procedure Cardiology Timothy Smith MD [address] [place] [address] (Wo rk) Scheduled Referrals Name Type Priority Associated Diagnoses Order S chedule Follow-Up with Referral Routine SSS (sick sinus Expected: Trailer Assembler syndrome) (H ) 04/11/2016 Typical atrial (Approximate) , flutter (H) Expires: 03/28/2017 documented as of this encounter Procedures Procedure Name Priority Date/Time Associated Diagnosis Comme nts HC PM DEVICE PROGRAMMING Routine 03/28/2016 Cardiac pacemaker in situ EVAL, DUAL LEAD PACER SSS (sick sinus syn drome) (H) documented in this encounter Results Holter Monitor 24 hour - Adult (04/18/2016) Narrative RADIANT - 04/18/[address] [facility] [address] [facility] [address] [facility] [address] 04/13/2016 Patient: ??Haris Bullard [facility] Chart: [id number] : ??1940 Age: ??75 year old Sex: ??male Procedure: ??Holter Monitor Placed: plea se see scanned document for result once interpretation is comple star. Healthcare Analyst performing hook-up: ??Sheri Yuen Timothy Smith MD CV CARDIAC SERVICES ORDERABL ES Performing Organization Address City/State/ZIP Code Phon e Number RADIANT PM DEVICE PROGRAMMING EVAL, DUAL LEAD PACER ([id number]) (03/28/2016) Narrative This result has an attachment that is no t available. Steven Canchola MD PROCEDURES documented in this encounter Visit Diagnoses Diagnosis Cardiac pacemaker in situ - Primary SSS (sick sinus syndrome) (H) Sinoatrial node dysfunction Typical atrial flutter (H) Atrial flutter SSS (sick sinus syndrome) (H) Sinoatrial node dysfunction Typical atrial flutter (H) Atrial flutter documented in this encounter Care Teams Estimator Lumber Relationship Specialty Start Date End Date Nas Cardenas MD PCP - General Family Practice 02/01/12 04/12/17 documented as of this encounter
--- OUTSIDE RECORDS SUMMARY | 2022-09-12 09:25 | XMS_ITS | Encounter Summary ---
:1940 Author Organization [employer] Address [address] [place] [address] Care Team Providers Name Role Phone Nas Cardenas MD Primary Care Provider Unavailable Reason for Visit Reason Comments Chest Pain awoke with pain at 0600 8 Auth/Cert - Closed Specialty Diagnoses / Procedures Referred By Contact Refer red To Contact Intensive Care Diagnoses Unstable angina (H) Rh [facility] [address] [place] [address] Phone: Fax: Referral ID Status Reason Start Date Expiration Date Visits Requ ested Visits Authorized [id number] Closed 02/01/2012 07/30/2012 1 1 Encounter Details Date Type Department Care Team Description 02/01/2012 - [facility] MD [facility] [address] [place], [place] [id number] Unstable angina (H); 02/04/2012 Encounter [facility] Jayy Gill MD [address] [place] [address] HTN (hypertension); Surgical Atrial flutter (H) [address] [place] [address] Social History Tobacco Use Types [...] on 02/02/2012 which showed that the old [place] vessels proximally occluded but the SVGs remain [...] on 02/02/2012. The angiogram showed the old [place] vessels proximally occluded but the SVGs remain [...] #[id number] Name: RADHA FAROOQ MRN: [id number] Account: [id number] : 1940 Admit Date: Discharge Date: Document: [id number] cc: Nas Cardenas MD documented in this [...] any questions that you may have.] ?? [phone] [place] [address]. All rights reserved. This information is not [...] Extreme drowsiness, confusion, dizziness or fainting ?? [phone] [facility], [address] [place] [address], [place] [address]. All rights reserved. This information is not [...] any questions that you may have.] ?? [phone] Thomas Blanc, [address] [place] [address], [place] [address]. All rights reserved. This information is not [...] and Plan: A: 1)stable cardiac condition 2)S/P MO 3)Hypertension-improved control 4)atrial flutter-reasonable heart rate control [...] Transfer Skill: Sit to Stand Level of Grant: Sit/Stand independent IADL Evaluation Previous Responsibilities yardwork;medication [...] flutter/sinus rhythm Assessment and Plan: A: 1)S/P MO with elevated troponin 2)atrial flutter with relatively [...] Luevano MD - 02/02/2012 11:38 AM CDT [facility] Progress Note Problem List: Patient Active [...] Gill MD - 02/01/2012 2:[address] [facility] Hospitalist Admission Note Name: Radha [...] T wave abnormality. Heart rate 78 bpm, TN Interval 178 ms, QT/QTc 378/430 ms, R [...] study night of: 02/02/2012. Study running from 5709 to 1066. (See attached graphics in paper chart) This [...] VAZQUEZ MD MT: Name: RADHA FAROOQ Account: [id number] : 1940 Procedure Date: 02/02/2012 Document: [id number] Umair Alves MD - 02/02/2012 2:58 PM [...] embolus, arrhythmia, use of stents, need for group home thienopyridine therapy, restenosis, the alternative of medical [...] needle, and with Seldinger technique, a 6 Polish sheath placed in the right radial artery. We gave no additional units of heparin since his heparin was stopped upon arrival in [facility]. We gave 2.5 mg of verapamil and [...] to cannulate the SVG to RCA 2) [place] CAG The [place] RCA was cannulated with a 5Fr Manas catheter and the LMCA was cannulated with a 6Fr JL4. Orthogonal views were performed. 2. Left heart catheterization. We exchanged for [id number] pigtail catheter. This catheter was advanced under [...] to moderate D1 fills via ipsicollaterals from [place] LAD via injection of SVG. There is [...] a retrograde fashion via injection of the [place] RCA. There is no significant narrowing in [...] to the distal anastamotic site. 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 I have explained to the patient the risks of , MO, stroke, hematoma, possible urgent bypass surgery for [...] he had a very similar presentation in [place], in [place], at the [facility], and underwent cardiac catheterization and was told [...] in 1985 with a 4-vessel bypass at [facility]. He has not had any further [...] MD MT: #[id number] Name: RADHA FAROOQ Account: [id number] : 1940 Consult Date: 02/01/2012 Document: [id number] José Luevano MD - 02/01/2012 4:48 PM [...] patient prior to being taken to the [facility] tomorrow morning. documented in this encounter ED [...] T wave abnormality. Heart rate 78 bpm, TN Interval 178 ms, QT/QTc 378/430 ms, R [...] Individualization/Patient-Specific Goal (Adult,OB,Behavioral The patient and/or their community relations representative will achieve their patient-specific goals related to the plan of care. The patient-specific goals include: RN: reviewed discharge and medication listing with patient and . Provided Lovenox teaching, warfarin teaching, and provided educational materials regarding Lisinopril, metoprolol, lovenox, and warfarin. Patients prescriptions were faxed to [facility]. Patient awaiting staff to bring to car by wheel chair for transport home by /POV at 1541 hours. Denies dizziness, SOB, or pain. Pt ambulated hallways several times with hospital staff/tolerated well with no SOB, dizziness, pain. Plan of Care - Kimberly Nur RN - 02/04/2012 5:42 AM CDT Problem: IP GENERAL POC-ADULT,OB,BEHAVIORAL FVCPM Goal: Individualization/Patient-Specific Goal (Adult,OB,Behavioral The patient and/or their community relations representative will achieve their patient-specific goals related to the plan of care. The patient-specific goals include: Outcome: Improving Pt rested well throughout night. VSS. No c/o CP/discomfort. Tele Aflutter with CVR, but looks like SR at times. Angio done and 01/31. Sheath site on L arm with dressing that is CDI. Cardio following. Plan for possible ablation at [facility]. Will continue to monitor. Plan of Care - Sulema Sexton RN - 02/03/2012 10:53 PM CDT Problem: IP GENERAL POC-ADULT,OB,BEHAVIORAL FVCPM Goal: Individualization/Patient-Specific Goal (Adult,OB,Behavioral The patient and/or their community relations representative will achieve their patient-specific goals related [...] Occupational Therapy Goals The patient and/or their community relations representative will achieve their patient-specific goals related [...] and scheduling cardiac rehab. Pt lives in [place] so stated he didn't want to have [...] physical activity to decrease risk of another MO.. DC from cardiac OT Plan of Care - Sharla Veloz RN - 02/03/2012 2:46 PM CDT Problem: IP GENERAL POC-ADULT,OB,BEHAVIORAL FVCPM Goal: Individualization/Patient-Specific Goal (Adult,OB,Behavioral The patient and/or their community relations representative will achieve their patient-specific goals related to the plan of care. The patient-specific goals include: Outcome: No Change Bp elevated this afternoon, 150-180/100-113. Tele was sr until 1014 when pt went into aflutter/fib. Pt denies pain, sob, chest pain. Cms intact in ue's. Pt denies numbness/tingling. Pt up to br multiples without problems. Pt transferred to [facility] tele. Plan of Care - Sharla Veloz RN - 02/03/2012 2:16 PM CDT Report called to Chitra EL on [facility] tele. Provider Notification - Sharla [...] Individualization/Patient-Specific Goal (Adult,OB,Behavioral The patient and/or their community relations representative will achieve their patient-specific goals related [...] 09/28/2022 Office Visit Cardiology Timothy Smith MD [address] [place], [place] [id number] Trudi Grayson APRN PHARMACY TECHNICIAN INPATIENT [address] [place] [address] 11/16/2022 Ancillary Procedure Cardiology Timothy Smith MD [address] [place] [address] (Wo rk) Pending Results Name Type Priority [...] study night of: 02/02/2012. Study running from 5669 to 9500. (See attached graphics in paper chart) This [...] JULIANNA VAZQUEZ MD MT: Name: RADHA FAROOQ MRN: [id number] Account: [id number] : 1940 Procedure Date: 02/02/20 12 Document: [id number] Julianna Vazquez MD PFT ORDERABLES (ABNORMAL) Glucose by meter (02/04/2012 11:34 AM CDT) athologist Signature Glucose 130 (H) 60 - 99 POINT OF CARE mg/dL TEST, GLUCOSE Specimen Anatomical Collection Method Collection Time Receive d Time (Source) Location / / Volume Laterality 02/04/2012 11:34 02/04/2012 AM CDT 11:50 AM CDT Jayy LAGUNAS - BEJOHN PAUL POCT Performing Organization Address City/State/ZIP [facility] Phon e Number FV POINT OF CARE [...] CDT Jayy NICKERSON POCT Performing Organization Address City/[facility]/ZIP [facility] Phon e Number FV POINT OF CARE TEST, GLUCOSE POINT OF CARE TEST, GLUCOSE (ABNORMAL) INR (02/04/2012 6:18 AM CDT) athologist [facility] INR 1.15 (H) 0.86 - 1.14 [facility] Specimen Anatomical Collection Method Collection Time Receive d Time (Source) Location / / Volume Laterality Blood specimen 02/04/2012 6:18 AM 012 6:31 (specimen) CDT AM CDT Jayy Gill MD LAB - BLOOD ORDERABLES Performing Organization Address City/[facility]/ZIP [facility] Phon e Number [facility] [address], [place] [address] [facility] CBC (AM Draw) (02/04/2012 6:18 AM CDT) athologist Signature WBC 7.7 4.0 - 11.0 [place] 10e9/L [facility] RBC Count 4.90 4.4 - 5.9 [place] 10e12/L [facility] Hemoglobin 15.7 13.3 - [facility] 17.7 g/dL [facility] Hematocrit 47.1 40.0 - [place] 53.0 % [facility] MCV 96 78 - 100 [place] fl [facility] MCH 32.0 26.5 - [facility] 33.0 pg [facility] MCHC 33.3 31.5 - [place] 36.5 g/dL [facility] RDW 14.1 10.0 - [place] 15.0 % [facility] Platelet Count 152 150 - 450 [place] 10e9/L [facility] Specimen Anatomical Collection Method Collection Time Receive d Time (Source) Location / / Volume Laterality Blood specimen 02/04/2012 6:18 AM 012 6:31 (specimen) CDT AM CDT Jayy Gill MD LAB - BLOOD ORDERABLES Performing Organization Address City/State/ZIP Code Phon e Number M [facility] [address] [place] [address] [facility] (ABNORMAL) Basic metabolic panel (02/04/2012 6:18 AM CDT) athologist Signature Sodium 142 133 - 144 [place] mmol/L [facility] Potassium 4.1 3.4 - 5.3 [place] mmol/L [facility] Chloride 101 94 - 109 [place] mmol/L [facility] Carbon Dioxide 30 20 - 32 [place] mmol/L [facility] Anion Gap 11 6 - 17 [place] mmol/L [facility] Glucose 119 (H) 60 - 99 [place] mg/dL [facility] Urea Nitrogen 14 7 - 30 [place] mg/dL [facility] Creatinine 0.68 0.66 - [facility] 1.25 mg/dL [facility] GFR Estimate >90 >60 [place] mL/min/1.[address] LAB GFR Estimate If >90 >60 [place] Black mL/min/[address] [place] [address] LAB Calcium 8.8 8.5 - 10.4 [place] mg/dL [facility] Specimen Anatomical Collection Method Collection Time Receive d Time (Source) Location / / Volume Laterality Blood specimen 02/04/2012 6:18 AM 012 6:31 (specimen) CDT AM CDT Jayy Gill MD LAB - BLOOD ORDERABLES Performing Organization Address City/State/ZIP Code Phon e Number [facility] [address] [place], [place] [address] [facility] (ABNORMAL) Glucose by meter (02/03/2012 8:41 PM CDT) P athologist Signature Glucose 146 (H) 60 - 99 POINT OF CARE mg/dL TEST, GLUCOSE Specimen Anatomical Collection Method Collection Time Receive d Time (Source) Location / / Volume Laterality 02/03/2012 8:41 PM 2 8:50 CDT PM CDT Jayy Gill MD LAB - BEAKER POCT Performing Organization Address City/[facility]/ZIP Code Phon e Number FV POINT OF CARE TEST, GLUCOSE POINT OF CARE TEST, GLUCOSE Methicillin Resistant Staph Aureus PCR (02/03/2012 8:25 PM CDT) Component Value Ref Test Analysis Performed At Patholo gist Range Method Time Signature Specimen Nares [facility] LAB Methicillin MRSA Negative: SA Negative ? ?MRSA and Staphylococcus aureus target DNA not [facility] Resist/Sens S. detected, presumed negative for MRSA and SA colonization or the number of MICROBIOLOGY aureus PCR bacteria present may be bel ow the limit of detection for the assay. FDA approved assay performed using [employer] GeneXpert(R) real-ti me PCR. Specimen (Source) Anatomical Collection Method Collection Time Re ceived Time Location / / Volume Laterality Nasal structure 02/03/2012 8:25 2 9:02 (body structure) PM CDT PM CDT Jeffrey Stallworth MD LAB - MICRO GENERAL ORDERABL ES Performing Organization Address City/State/ZIP Code Phon e Number [facility] [address] [place] [address] [facility] MICROBIOLOGY (ABNORMAL) Glucose by meter (02/03/2012 6:08 PM CDT) P athologist Signature Glucose 163 (H) 60 - 99 POINT OF CARE mg/dL TEST, GLUCOSE Specimen Anatomical Collection Method Collection Time Receive d Time (Source) Location / / Volume Laterality 02/03/2012 6:08 PM 2 6:25 CDT PM CDT Jayy LAGUNAS - LIYA POCT Performing Organization Address [facility]/ZIP [facility] Phon e Number FV POINT OF CARE [...] LAGUNAS - LIYA POCT Performing Organization Address [facility] Code Phon e Number FV POINT OF CARE TEST, GLUCOSE POINT OF CARE TEST, GLUCOSE (ABNORMAL) Glucose by meter (02/03/2012 7:51 AM CDT) P athologist Signature Glucose 167 (H) 60 - 99 POINT OF CARE mg/dL TEST, GLUCOSE Specimen Anatomical Collection Method Collection Time Receive d Time (Source) Location / / Volume Laterality 02/03/2012 7:51 AM 2 8:05 CDT AM CDT Jayy NICKERSON POCT Performing Organization Address [facility] Phon e Number FV POINT OF CARE TEST, GLUCOSE POINT OF CARE TEST, GLUCOSE EKG 12-lead, tracing only (02/03/2012 5:59 AM CDT) Component Value Ref Range Test Analysis Performed Pathologis t Method Time At Signature Ventricular Rate 76 BPM RADIOLOGY RESULTS Atrial Rate 76 BPM RADIOLOGY RESULTS TN Interval 168 ms RADIOLOGY RESULTS QRS Duration 106 ms RADIOLOGY RESULTS QT 368 ms RADIOLOGY RESULTS QTc 414 ms RADIOLOGY RESULTS P Nesbit 69 degrees RADIOLOGY RESULTS R AXIS 1 degrees RADIOLOGY RESULTS T Nesbit 117 degrees RADIOLOGY RESULTS Interpretation Sinus rhythm [...] Liriano MD ECG ORDERABLES Performing Organization Address City/[facility]/ZIP Code Phon e Number RADIOLOGY RESULTS EKG 12-lead, tracing only (02/03/2012 5:59 AM CDT) Component Value Ref Range Test Analysis Performed Pathologis t Method Time At Signature Ventricular Rate 78 BPM RADIOLOGY RESULTS Atrial Rate 78 BPM RADIOLOGY RESULTS TN Interval 168 ms RADIOLOGY RESULTS QRS Duration 100 ms RADIOLOGY RESULTS QT 364 ms RADIOLOGY RESULTS QTc 414 ms RADIOLOGY RESULTS P Nesbit 75 degrees RADIOLOGY RESULTS R AXIS 3 degrees RADIOLOGY RESULTS T Nesbit 126 degrees RADIOLOGY RESULTS Interpretation Sinus rhythm [...] Gill MD ECG ORDERABLES Performing Organization Address City/[facility]/ZIP [facility] Phon e Number RADIOLOGY RESULTS (ABNORMAL) Platelet count (02/03/2012 5:50 AM CDT) P athologist Signature Platelet Count 140 (L) 150 - 450 [place] 10e9/L [facility] Specimen Anatomical Collection Method Collection Time Receive d Time (Source) Location / / Volume Laterality Blood specimen 02/03/2012 5:50 AM 012 5:58 (specimen) CDT AM CDT Sabino Lujan [facility] LAB - BLOOD ORDERABLES Performing Organization Address City/State/ZIP [facility] Phon e Number Karey [facility] [address] [place], [place] [address] [facility] INR (02/03/2012 5:50 AM CDT) P athologist Signature INR 1.09 0.86 - 1.14 [facility] Specimen Anatomical Collection Method Collection Time Receive d Time (Source) Location / / Volume Laterality Blood specimen 02/03/2012 5:50 AM 012 5:58 (specimen) CDT AM CDT José Luevano MD LAB - BLOOD ORDERABLES Performing Organization Address City/[facility] Phon e Number [facility] [address] [place], [place] [address] [facility] ECG - HIM ECG Scan [...] LAB - BEAKER POCT Performing Organization Address City/[facility]/ZIP Code Phon e Number FV POINT [...] LAGUNAS - BEAKER POCT Performing Organization Address City/[facility]/ZIP Code Phon e Number FV POINT OF CARE TEST, GLUCOSE POINT OF CARE TEST, GLUCOSE INR (02/02/2012 4:30 PM CDT) P athologist Signature INR 1.05 0.86 - 1.14 [facility] Specimen Anatomical Collection Method Collection Time Receive d Time (Source) Location / / Volume Laterality Blood specimen 02/02/2012 4:30 PM 012 4:43 (specimen) CDT PM CDT Sabino Lujan [facility] LAB - BLOOD ORDERABLES Performing Organization Address City/State/ZIP Code Phon e Number M [facility] [address] [place], [place] [address] [facility] Heart Cath Left heart cath (02/02/2012 3:32 PM CDT) Anatomical Region Laterality Modality Other Specimen (Source) Anatomical Collection Method Collection Time Re ceived Time Location / / Volume Laterality 02/02/2012 3:32 PM CDT Impressions 02/03/2012 10:17 AM CDT RADHA FAROOQ PROCEDURES PERFORMED: 1. ??Left internal mammary angiogram. 2. ??Saphenous venous bypass graft angio graphy. 3. ??[place] coronary angiography. 4. ??Left heart catheterization. 5. [...] and with Seldinger techniqu e, a 6 Polish sheath placed in the left radial artery. ??We gave 2.5 mg of verapamil and 400 mcg nitroglycerin intra-arterially. ??The jose francisco lawrence had just been on a heparin drip, and we did not give him an y additional heparin as it had been stopped on admission here to [facility] lab. ??We advanced a 4 Polish left internal mammary catheter an d seated [...] angiography was performed in orthogonal views. 3. ??[place] coronary angiogram. ??We use d a 5 Polish Manas catheter to cannulate the ostium of the right fung ry artery. ??Right coronary angiography was performed in orthogonal views. ??We later exchanged for first a JL4 4 Polish and then finall y a JL4 6 Polish catheter which allowed us to seat in [...] vessel. ??There is filling of both septal survey chief bra nches and a small to moderate-sized [...] narrowing distal to the distal anastomotic site. [place] coronary arteries: 1. ??The [place] left main: ??This vessel of occluded in [...] small terminal marginal branch system. ?? 3. ??[place] right coronary artery: ??Thi s is a dominant vessel. ??It has a proximal 85-90% narrowing. ??There is competitive filling seen in the mid and distal right coronary with i njection of the [place] right coronary artery from the patent bypass g raft. ??The right coronary distal to the distal anastomotic site of the bypass graft has no significant narrowing. 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 or severely [...] LAGUNAS - LIYA POCT Performing Organization Address [facility]/ZIP [facility] Phon e Number FV POINT OF CARE [...] CDT Jayy NICKERSON POCT Performing Organization Address City/[facility]/ZIP [facility] Phon e Number FV POINT OF CARE TEST, GLUCOSE POINT OF CARE TEST, GLUCOSE TSH (02/02/2012 5:26 AM CDT) P athologist Signature TSH 1.64 0.4 - 5.0 [facility] LAB Specimen Anatomical Collection Method Collection Time Receive d Time (Source) Location / / Volume Laterality 02/02/2012 5:26 AM 2 5:41 CDT AM CDT Jayy Gill MD LAB - BLOOD ORDERABLES Performing Organization Address [facility]/ZIP [facility] Phon e Number M [facility] [address] [place], [place] [address] [facility] Heparin Xa (10a) Level (02/02/2012 5:26 AM CDT) P athologist Signature Heparin 10A 0.20 IU/mL [facility] LAB Comment: Therapeutic Range: ?? UFH: [...] Address City/State/ZIP Code Phon e Number [place] [address] [place] [address] [facility] (ABNORMAL) Basic metabolic panel (02/02/2012 5:26 AM CDT) Analysis Performed At Patho logist Time Signature Sodium 139 133 - 144 [place] mmol/L [facility] Potassium 4.1 3.4 - 5.3 [place] mmol/L [facility] Chloride 101 94 - 109 [place] mmol/L [facility] Carbon Dioxide 27 20 - 32 [place] mmol/L [facility] Anion Gap 10 6 - 17 [place] mmol/L [facility] Glucose 140 (H) 60 - 99 [place] mg/dL [facility] Urea Nitrogen 16 7 - 30 [place] mg/dL [facility] Creatinine 0.59 (L) 0.66 - [facility] 1.25 mg/dL [facility] GFR Estimate >90 >60 [place] mL/min/1.7 [facility] m2 [facility] LAB GFR Estimate If >90 >60 [facility] mL/min/1.[address] LAB Calcium 8.7 8.5 - 10.4 [place] mg/dL [facility] Specimen Anatomical Collection Method Collection Time Receive d Time (Source) Location / / Volume Laterality Blood specimen 02/02/2012 5:26 AM 012 5:41 (specimen) CDT AM CDT Jayy Gill MD LAB - BLOOD ORDERABLES Performing Organization Address City/State/ZIP [facility] Phon e Number M [facility] [address], [place] [address] [facility] (ABNORMAL) Hemoglobin A1c (02/02/2012 5:26 [...] e Number M [facility] [address], [place] [address] [facility] (ABNORMAL) Troponin I - every 6 hours x 4 (02/02/2012 5:26 AM CDT) Analysis Performed At Patho logist Time Signature Troponin I ES 5.030 (HH) 0.000 - [place] 0.034 ug/L [facility] Comment: Critical Value called to and read back sam MICHELE (ICU) ON 12 AT 0615 BY EK Specimen Anatomical Collection Method Collection Time Receive d Time (Source) Location / / Volume Laterality Blood specimen 02/02/2012 5:26 AM 012 5:41 (specimen) CDT AM CDT Jayy Gill MD LAB - BLOOD ORDERABLES Performing Organization Address City/State/ZIP Code Phon e Number M [facility] [address], [place] [address] [facility] OXIMETRY COMPREHENSIVE REPORT - HIM Other Scan (02/02/2012) Narrative This result has an attachment that is no t available. Julianna Vazquez MD IP NURSING ACTIVITY (ABNORMAL) Troponin I - every 6 hours x 4 (02/01/2012 11:59 PM CDT) Analysis Performed At Patho logist Time Signature Troponin I ES 4.260 (HH) 0.000 - [place] 0.034 ug/L [facility] Comment: Critical Value called to and read back sam GANN(ICU)ON [id number] @0041 TT Specimen Anatomical Collection Method Collection Time Receive d Time (Source) Location / / Volume Laterality Blood specimen 02/01/2012 11:59 2 (specimen) PM CDT 12:07 AM CDT Jayy Gill MD LAB - BLOOD ORDERABLES Performing Organization Address City/State/ZIP Code Phon e Number [place] [address] [address] [facility] (ABNORMAL) Glucose by meter (02/01/2012 9:15 PM CDT) athologist Signature Glucose 155 (H) 60 - 99 POINT OF CARE mg/dL TEST, GLUCOSE Specimen Anatomical Collection Method Collection Time Receive d Time (Source) Location / / Volume Laterality 02/01/2012 9:15 PM 2 9:20 CDT PM CDT Jayy Gill MD LAB - BEAKER POCT Performing Organization Address City/[facility]/ZIP [facility] Phon e Number FV POINT OF CARE TEST, GLUCOSE POINT OF CARE TEST, GLUCOSE Heparin 10a Level (02/01/2012 7:40 PM CDT) P athologist Signature Heparin 10A 0.26 IU/mL [facility] Comment: Therapeutic Range: ?? UFH: [...] - BLOOD ORDERABLES Performing Organization Address [facility] Phon e Number M [facility] [address], [place] [address] [facility] (ABNORMAL) Troponin I - every 6 hours x 4 (02/01/2012 6:30 PM CDT) Analysis Performed At Patho logist Time Signature Troponin I ES 2.330 () 0.000 - [place] 0.034 ug/L [facility] Comment: Critical Value called to and read back sam MCKOY (TECHNICAL ADJUSTER) AT 1900 05.03.12, TD Specimen Anatomical Collection Method Collection Time Receive d Time (Source) Location / / Volume Laterality Blood specimen 02/01/2012 6:30 PM 012 6:34 (specimen) CDT PM CDT Jayy Gill MD LAB - BLOOD ORDERABLES Performing Organization Address [facility]/ZIP [facility] Phon e Number M [facility] [address], [place] [address] [facility] Heparin 10a Level (02/01/2012 6:30 PM CDT) P athologist Signature Heparin 10A 0.30 IU/mL [facility] Comment: Therapeutic Range: ?? UFH: [...] 6:34 (specimen) CDT PM CDT Cheng Crump [facility] - BLOOD ORDERABLES Performing Organization Address [facility] Phon e Number M [facility] [address], [place] [address] [facility] (ABNORMAL) Glucose by meter (02/01/2012 5:02 PM CDT) athologist Signature Glucose 121 (H) 60 - 99 POINT OF CARE mg/dL TEST, GLUCOSE Specimen Anatomical Collection Method Collection Time Receive d Time (Source) Location / / Volume Laterality 02/01/2012 5:02 PM 2 6:50 CDT AM CDT Jayy Gill MD LAB - BEAKER POCT Performing Organization Address [facility] Phon e Number FV POINT OF [...] - BLOOD ORDERABLES Performing Organization Address [facility] Phon e Number M [facility] [address], [place] [address] [facility] (ABNORMAL) CBC with platelets (02/01/2012 3:18 PM CDT) athologist Signature WBC 7.6 4.0 - 11.0 [place] 10e9/L [facility] RBC Count 4.71 4.4 - 5.9 [place] 10e12/L [facility] Hemoglobin 15.0 13.3 - [place] 17.7 g/dL [facility] Hematocrit 44.7 40.0 - [place] 53.0 % [facility] MCV 95 78 - 100 [place] fl [facility] MCH 31.8 26.5 - [facility] 33.0 pg [facility] MCHC 33.6 31.5 - [place] 36.5 g/dL [facility] RDW 13.8 10.0 - [place] 15.0 % [facility] Platelet Count 148 (L) 150 - 450 [place] 10e9/L [facility] Specimen Anatomical Collection Method Collection Time Receive d Time (Source) Location / / Volume Laterality Blood specimen 02/01/2012 3:18 PM 012 3:23 (specimen) CDT PM CDT Jayy Gill MD LAB - BLOOD ORDERABLES Performing Organization Address City/State/ZIP Code Phon e Number [facility] [address], [place] [address] [facility] (ABNORMAL) Troponin I - every 6 hours x 4 (02/01/2012 3:18 PM CDT) Analysis Performed At Patho logist Time Signature Troponin I ES 0.912 () 0.000 - [facility] 0.034 ug/L [facility] Comment: Critical Value called to and read back sam MCKOY (ICU CHARGE NURSE) AT 1555 05.03.12 , TD Specimen Anatomical Collection Method Collection Time Receive d Time (Source) Location / / Volume Laterality Blood specimen 02/01/2012 3:18 PM 012 3:23 (specimen) CDT PM CDT Jayy Gill MD LAB - BLOOD ORDERABLES Performing Organization Address City/State/ZIP Code Phon e Number [facility] [address], [place] [address] [facility] Echo complete with definity (02/01/2012 2:52 PM CDT) [facility] Method Time Signature [facility] Interpretation [...] Troponin I ES 0.047 (H) 0.000 - [place] 0.034 ug/L [facility] Comment: The 99th percentile for upper [...] Organization Address City/State/ZIP Code Phon e Number [place] [address], [place] [address] [facility] EKG 12 lead (02/01/2012 9:51 AM CDT) Component Value Ref Range Test Analysis Performed Pathologis t Method Time At Signature Ventricular Rate 78 BPM RADIOLOGY RESULTS Atrial Rate 78 BPM RADIOLOGY RESULTS TN Interval 178 ms RADIOLOGY RESULTS QRS Duration 136 ms RADIOLOGY RESULTS QT 378 ms RADIOLOGY RESULTS QTc 430 ms RADIOLOGY RESULTS P Nesbit 77 degrees RADIOLOGY RESULTS R AXIS 3 degrees RADIOLOGY RESULTS T Nesbit -160 degrees RADIOLOGY RESULTS Interpretation Sinus rhythm [...] RESULTS QTc 504 ms RADIOLOGY RESULTS P Nesbit 90 degrees RADIOLOGY RESULTS R AXIS 7 degrees RADIOLOGY RESULTS T Nesbit -121 degrees RADIOLOGY RESULTS Interpretation Atrial flutter [...] athologist Signature Troponin I 0.026 0.000 - [place] 0.034 ug/L [facility] Specimen Anatomical Collection Method Collection Time Receive d Time (Source) Location / / Volume Laterality Blood specimen 02/01/2012 8:45 AM 012 9:04 (specimen) CDT AM CDT Stephen Liriano MD LAB - BLOOD ORDERABLES Performing Organization Address City/State/ZIP Code Phon e Number [facility] [address], [place] [address] [facility] (ABNORMAL) Basic metabolic panel (02/01/2012 8:45 AM CDT) Analysis Performed At Patho logist Time Signature Sodium 141 133 - 144 [place] mmol/L [facility] Potassium 4.1 3.4 - 5.3 [place] mmol/L [facility] Chloride 99 94 - 109 [place] mmol/L [facility] Carbon Dioxide 30 20 - 32 [place] mmol/L [facility] Anion Gap 12 6 - 17 [place] mmol/L [facility] Glucose 181 (H) 60 - 99 [place] mg/dL [facility] Urea Nitrogen 20 7 - 30 [place] mg/dL [facility] Creatinine 0.59 (L) 0.66 - [place] 1.25 mg/dL [facility] GFR Estimate >90 >60 [place] mL/min/1.[address] LAB GFR Estimate If >90 >60 [place] Black mL/min/1.[address] LAB Calcium 8.8 8.5 - 10.4 [place] mg/dL [facility] Specimen Anatomical Collection Method Collection Time Receive d Time (Source) Location / / Volume Laterality Blood specimen 02/01/2012 8:45 AM 012 9:04 (specimen) CDT AM CDT Stephen Liriano MD LAB - BLOOD ORDERABLES Performing Organization Address City/State/ZIP Code Phon e Number [place] [address] [address] [facility] CBC with platelets differential (02/01/2012 8:45 AM CDT) [facility] Method Time Signature WBC 6.1 4.0 - [place] 11.0 [facility] 10e9/[facility] RBC Count 4.93 4.4 - 5.9 [place] 10e12/L [facility] Hemoglobin 15.8 13.3 - [facility] 17.7 g/dL [facility] Hematocrit 47.0 40.0 - [facility] 53.0 % [facility] MCV 95 78 - 100 [place] fl [facility] MCH 32.0 26.5 - [facility] 33.0 pg [facility] MCHC 33.6 31.5 - [place] 36.5 g/dL [facility] RDW 14.0 10.0 - [facility] 15.0 % [facility] Platelet Count 161 150 - 450 [place] 10e9/L [facility] Diff Method Automated [facility] % Neutrophils 55.3 40 - 75 % [facility] % Lymphocytes 29.5 20 - 48 % [facility] % Monocytes 9.1 0 - 12 % [facility] % Eosinophils 5.3 0 - 6 % [facility] % Basophils 0.5 0 - 2 % [facility] % Immature 0.3 0 - 0.4 % [place] Granulocytes [facility] Absolute 3.4 1.6 - 8.3 [place] Neutrophil 10e9/L [facility] Absolute 1.8 0.8 - 5.3 [place] Lymphocytes 10e9/L [facility] Absolute 0.6 0.0 - 1.3 [place] Monocytes 10e9/L [facility] Absolute 0.3 0.0 - 0.7 [place] Eosinophils [address] [place] [address] LAB Absolute 0.0 0.0 - 0.2 [place] Basophils 10e9/L [facility] Abs Immature 0.0 0 - 0.03 [place] Granulocytes [address] [place] [address] LAB Specimen Anatomical Collection Method Collection Time Receive d Time (Source) Location / / Volume Laterality Blood specimen 02/01/2012 8:45 AM 012 9:04 (specimen) CDT AM CDT Stephen Liriano MD LAB - BLOOD ORDERABLES Performing Organization Address City/State/ZIP Code Phon e Number [place] [address], [place] [address] [facility] ECG - HIM ECG Scan [...] IV for 2 hours prior to cardiac soap slabber procedure, then decrease to 75 mL/hr to [...] Including day before and day of cardiac soap slabber procedure (except if pt. Allergic) if not already given today in ED for patients arriving on day of cardiac soap slabber procedure. Already received total of 325 mg [...] to 11 mL/hr), Intravenous, CONTINUOUS, Starting on Ana 02/01/12 at 1200, Continue at 1100 [...] DAILY BEFORE MEALS, First dose on Ana 02/01/12 at [...] Including day before and day of cardiac soap slabber procedure (except if pt. Allergic) if not already given today in ED for patients arriving on day o f cardiac soap slabber procedure. Already received total of 325 mg [...] 1 dose insulin aspart (NovoLOG) injection (CANCELED) 839 (Ho ld - Provider: Ana Tian LPN - Reason: NPO)1200 (z Missed (do not use) - Provider: Brian Little RN - Reason: Order parameters not met - Comment: 126) 0753 (Given - Provider: Eran Ambrose LPN - Comment: BS 167)1219 (z Missed (do not use) - Provider: Eran Ambrose LPN - Reason: Order parameters not met - Comment: BS 118)1809 (Given - Provider: Sulema East RN) 0727 (z Missed (do not use) - Provider: Marta Bynum LPN - Reason: Order parameters not met - Comment: bg 138)1151 (z Missed (do not use) - Provider: Marta Bynum LPN - Reason: Order parameters no t met - Comment: bg 130) 1-5 Units, Subcutaneous, 3 TIMES DAILY B EFORE MEALS, First dose on Ana 02/01/12 at 1700, Correction Scale - MEDIUM INSULIN RESISTANCE DOSING Do Not give Correction Insulin if Pre-Meal BG < 140. For Pre 1740 (z Missed (do not use) - Provider: Mildred Massey RN - Reason: Order parameters not met - Comment: 138) -Meal BG 140 - 189 give 1 [...] 2041 (Given - Provider: Mildred Massey RN) 0814 [...] 2 TIMES DAILY, First dose o n 02/04/12 at 0900, DO NOT CRUSH. Tablet [...] Brian Little RN) 1958 (Given - Provider: Shermna Messer RN)2213 (z Missed (do not use) - Provider: Sherman Messer RN - Reason: Other - Comment: given early) 0805 (Given - Provider: Misa Nelson)204 (z Missed (do not use) - Provider: Mildred Massey RN - Reason: [...] (Give n - Provider: Daly Norwood RN)1555 (z Missed (do not use) - Provider: Brian Little RN - Reason: Transfer to a procedural area)2215 (z Missed (do not use) - Provider: Sherman Messer RN - Reason: [...] (Give n - Provider: Brian Little RN)2330 (z Missed (do not use) - Provider: Sherman Messer RN - Reason: IV Infusing) 0810 (Given - Provider: Sharla Ruiz RN)1610 (Given - Provider: Sulema East RN) 0031 (Given - Provider: Kimberly Nur RN)0814 (Given - Provider: Marta Bynum LPN)1600 [...] Intravenous, at 150 mL/hr, CON TINUOUS, Starting Sun02/02/12 at 0000, 150 mL/hr IV for 2 hours prior to cardiac soap slabber procedure, then decrease to 75 mL/hr to [...] Override documented in this encounter Care Teams Pearl Restorer Relationship Specialty Start Date End Date Nas Cardenas MD PCP - General Family Practice 02/01/12 04/12/17 documented as of this encounter
--- OUTSIDE RECORDS SUMMARY | 2022-09-12 09:25 | XMS_ITS | Encounter Summary ---
:1940 Author Organization [place] Address [facility] [place] [address] Care Team Providers Name Role Phone Unavailable Primary Care Provider Unavailable Encounter Details Date Type Department Care Team Description 10/17/2004 Historic Speed Winder INTERFACED REPORT Dasha Gonzalez MD [facility] [address] [facility] [place] [address] [place], [place] [address] (Wo rk) Social History Tobacco Use Types Packs/Day Years Used Date Smoking Tobacco: Never Alcohol Use Standard Drinks/Week Comments Yes 0 (1 standard drink = 0.6 oz pure alcoho l) Sex Assigned at Date Recorded Not on file documented as of this encounter Progress Notes Dasha Gonzalez MD - 09/06/2011 4:53 AM CUSTOMER SERVICES SUPERVISOR 1st ASS'T: Sabino Ceja 2nd ASS'T: PRE-OPERATIVE [...] in good condition. DASHA GONZALEZ MD MT: [email or web address] Document: [id number] CC: DASHA GONZALEZ MD [place], [place] Name: RADHA FAROOQ OPERATIVE REPORT Page 2 of 1 LCN: EYE DSC: 10/17/2004 [place], [place] Name: RADHA FAROOQ MR#: : Procedure Date: [id number] 1940 10/17/2004 Surgeon: DASHA GONZALEZ MD OPERATIVE REPORT Page 1 of 1 OMER SERVICES SUPERVISOR documented in this encounter Plan of Treatment Upcoming Encounters Date Type Specialty Care Team Description 09/28/2022 Lab Lab 09/28/2022 Office Visit Cardiology Timothy Smith MD [address] [place] [id number] Trudi Grayson APRN CNP [address] [address] 11/16/2022 Ancillary Procedure Cardiology Timothy Smith MD [address] [place] [id number] (Wo rk) documented as of this encounter Visit Diagnoses Not on filedocumented in this encounter
--- OUTSIDE RECORDS SUMMARY | 2022-09-12 09:25 | XMS_ITS | Encounter Summary ---
:1940 Author Organization [place] Address [address] [place] [address] Care Team Providers Name Role Phone Nas Cardenas MD Primary Care Provider Unavailable Encounter Details Date Type Department Care Team Description 01/15/[address] [facility] Heart Unknown, Doct or, Clinic [facility] or [address] [facility] [address] [place] [phone] Social History Tobacco Use Types Packs/Day Years [...] MD [address] [place] [address] Trudi Grayson APRN SINGLE STAYER OPERATOR [address] [place] [address] 11/16/2022 Ancillary Procedure Cardiology Timothy Smith MD [address] [place] [address] (Wo rk) documented as of this encounter Procedures Procedure Name Priority Date/Time Associated Comments Diagnosis [facility] HISTORICAL Routine 01/15/2013 12:00 AM Resu lts for this RESULTS CDT procedure are i n the results section. documented in this encounter Results [facility] Historical Results (01/15/2013 12:00 AM CDT) P athologist Signature INR 2.9 [facility] HISTORICAL RESULTS Specimen (Source) Anatomical Location Collection Method / Collectio n Time Received Time / Laterality Volume 01/15/2013 01/15/2013 Doctor Unknown MD LABORATORY Performing Organization Address City/State/ZIP Code Phon e Number [facility] HISTORICAL RESULTS documented in this encounter Visit Diagnoses Not on filedocumented in this encounter Care Teams Ski Topper Relationship Specialty Start Date End Date Nas Cardenas MD PCP - General Family Practice 02/01/12 04/12/17 documented as of this encounter
--- OUTSIDE RECORDS SUMMARY | 2022-09-12 09:25 | XMS_ITS | Encounter Summary ---
:1940 Author Organization [place] Address [address] [place] [address] Care Team Providers Name Role Phone Nas Cardenas MD Primary Care Provider Unavailable Encounter Details Date Type Department Care Team Description 02/27/2013 Hospital Encounter [facility] Timothy Smith MD Atrial flutter (H) [facility] [address] (Primary D x) [address] [place] [address] [place] [phone] Social History Tobacco Use Types Packs/Day Years [...] 5:26 PM CDT 1. See an EP [employer] MEMBERSHIP SALES AGENT in 1 month, with ECG 2. See [...] beats should occur less often. Questions? Call [facility] at [phone]. 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 documented in this encounter H&P Notes Timothy Smith MD - 02/26/2013 2:35 PM CDT documented in this encounter Plan of Treatment Upcoming Encounters Date Type Specialty Care Team Description 09/28/2022 Lab Lab 09/28/2022 Office Visit Cardiology Timothy Smith MD [address] [place] [address] Trudi Grayson APRN FORM MAKER PLASTER [address] [address] 11/16/2022 Ancillary Procedure Cardiology Timothy Smith MD [address] [place] [id number] (Wo rk) documented as of this encounter [...] 12-lead, tracing only (02/27/2013 2:47 PM CDT) [facility] Method Time Signature Interpretation ECG Click [...] 12-lead, tracing only (02/27/2013 12:40 PM CDT) [facility] Method Time Signature Interpretation ECG Click [...] Signature INR 2.66 (H) 0.86 - 1.14 [facility] Specimen Anatomical Collection Method Collection Time Receive d Time (Source) Location / / Volume Laterality Blood specimen 02/27/2013 11:45 3 (specimen) AM CDT 11:54 AM CDT Timothy Smith MD LAB - BLOOD ORDERABLES Performing Organization Address City/State/ZIP Code Phon e Number [facility] [address] [address] [facility] CBC with platelets (02/27/2013 11:45 AM CDT) P athologist Signature WBC 6.0 4.0 - 11.0 [place] 10e9/L [facility] RBC Count 4.89 4.4 - 5.9 [place] 10e12/L [facility] Hemoglobin 15.6 13.3 - [facility] 17.7 g/dL [facility] Hematocrit 46.4 40.0 - [facility] 53.0 % [facility] MCV 95 78 - [address] [place] [address] [facility] MCH 31.9 26.5 - [facility] 33.[address] [facility] MCHC 33.6 31.5 - [facility] 36.5 g/dL [facility] RDW 14.0 10.0 - [place] 15.0 % [facility] Platelet Count 191 150 - 450 [place] 10e9/L [facility] Specimen Anatomical Collection Method Collection Time Receive d Time (Source) Location / / Volume Laterality Blood specimen 02/27/2013 11:45 3 (specimen) AM CDT 11:54 AM CDT Timothy Smith MD LAB - BLOOD ORDERABLES Performing Organization Address City/State/ZIP Code Phon e Number M [facility] [address] [place] [address] [facility] (ABNORMAL) Basic metabolic panel (02/27/2013 11:45 AM CDT) athologist Signature Sodium 139 133 - 144 [place] mmol/L [facility] Potassium 4.3 3.4 - 5.3 [place] mmol/L [facility] Chloride 102 94 - 109 [place] mmol/L [facility] Carbon Dioxide 24 20 - 32 [place] mmol/L [facility] Anion Gap 12 6 - 17 [place] mmol/L [facility] Glucose 183 (H) 60 - 99 [place] mg/dL [facility] Urea Nitrogen 20 7 - 30 [place] mg/dL [facility] Creatinine 0.79 0.66 - [facility] 1.25 mg/dL [facility] GFR Estimate >90 >60 [place] mL/min/1.[address] LAB GFR Estimate If >90 >60 [place] Black mL/min/1.[address] LAB Calcium 8.7 8.5 - 10.4 [place] mg/dL [facility] Specimen Anatomical Collection Method Collection Time Receive d Time (Source) Location / / Volume Laterality Blood specimen 02/27/2013 11:45 3 (specimen) AM CDT 11:54 AM CDT Timothy Smith MD LAB - BLOOD ORDERABLES Performing Organization Address City/State/ZIP Code Phon e Number M [facility] [address] [place] [address] [facility] documented in this [...] Intra-procedure midazolam (VERSED) injection 0.5-2 mg (CANCELED) 133 (Given - Provider: Marissa Babin RN) 0.5-2 mg, Intravenous, EVERY 2 MIN PRN, Starting Ana 02/27/13 at 1329, sedation, when verbally ordered by the prescriber during the procedure, Doses can be exceeded under direct oversight of patient by physician., Cardiac Intra-procedure documented in this encounter Care Teams Bolt Machine Operator Relationship Specialty Start Date End Date Nas Cardenas MD PCP - General Family Practice 02/01/12 04/12/17 documented as of this encounter
--- OUTSIDE RECORDS SUMMARY | 2022-09-12 09:25 | XMS_ITS | Encounter Summary ---
:1940 Author Organization [place] Address [address] [place] [address] Care Team Providers Name Role Phone Nas Cardenas MD Primary Care Provider Unavailable Encounter Details Date Type Department Care Team Description 02/02/2012 Historic Results [facility] Unknown, [facility] [address] [facility] [address] [place] [phone] Social History Tobacco Use Types Packs/Day Years [...] [address] [place] [phone] Trudi Grayson, FLACO PICK REMOVER [address] [place] [phone] 11/16/2022 Ancillary Procedure Cardiology Timothy Smith MD [address] [place] [phone] (Wo rk) documented as of this encounter [...] on filedocumented in this encounter Care Teams Exhibitions Curator Relationship Specialty Start Date End Date Nas Cardenas MD PCP - General Family Practice 02/01/12 04/12/17 documented as of this encounter
--- OUTSIDE RECORDS SUMMARY | 2022-09-12 09:25 | XMS_ITS | Encounter Summary ---
:1940 Author Organization [place] Address [facility] [address] Care Team Providers Name Role Phone Unavailable Primary Care Provider Unavailable Reason for Visit Reason Comments RECHECK having radiation tx for eye ca.-needing lab work Encounter Details Date Type Department Care Team Description 08/31/2004 Office Visit [facility] Kannan Flores MD [facility] XXX RESIGNED XXX ENCOUNTER--DISREGARD [address] (Primary Dx) [address] [place] [phone] Social History Tobacco Use Types Packs/Day Years Used Date Smoking Tobacco: Never Alcohol Use Standard Drinks/Week Comments Yes 0 (1 standard drink = 0.6 oz pure alcoho l) Sex Assigned at Date Recorded Not on file documented as of this encounter Last Filed Vital Signs Vital Sign Reading Time Taken Comments Blood Pressure 128/90 08/31/2004 9:55 AM MVA STILL OPERATOR Pulse 62 08/31/2004 9:55 AM MVA STILL OPERATOR Temperature - - Respiratory Rate - - Oxygen Saturation - - Inhaled Oxygen Concentration - - Weight 139.3 kg (307 lb) 08/31/2004 9:55 AM MVA STILL OPERATOR Height - - Body Mass Index [...] MD [address] [place] [phone] Trudi Grayson APRN COTTAGE MASTER [address] [phone] 11/16/2022 Ancillary Procedure Cardiology Timothy Smith MD [address] [place] [phone] (Wo rk) documented as of this encounter Visit Diagnoses Diagnosis ERRONEOUS ENCOUNTER--DISREGARD - Primary documented in this encounter
--- OUTSIDE RECORDS SUMMARY | 2022-09-12 09:25 | XMS_ITS | Encounter Summary ---
:1940 Author Organization [place] Address [address] [facility] [place] [address] Care Team Providers Name Role Phone Nas Cardenas MD Primary Care Provider Unavailable Encounter Details Date Type Department Care Team Description 02/01/2012 Historic Results [facility] Heart Unknown, [facility]ly named [facility] [address] [facility] [address] [place] [phone] Social History Tobacco Use Types Packs/Day Years [...] [address] [place] [phone] Trudi Grayson, FL[employer] INTERN RETAIL [address] [place] [phone] 11/16/2022 Ancillary Procedure Cardiology Timothy Smith MD [address] [place] [phone] (Wo rk) documented as of this encounter [...] filedocumented in this encounter Care Teams Senior Human Resources Representative Relationship Specialty Start Date End Date Nas Cardenas MD PCP - General Family Practice 02/01/12 04/12/17 documented as of this encounter
--- OUTSIDE RECORDS SUMMARY | 2022-09-12 09:25 | XMS_ITS | Encounter Summary ---
:1940 Author Organization [place] Address [address] [facility] [place] [address] Care Team Providers Name Role Phone Unavailable Primary Care Provider Unavailable Encounter Details Date Type Department Care Team Description 08/06/2004 Allied Health/Nurse Health [facility] FOR INFLUENZA Visit [facility] [place] [address] [place] [address] Social History Tobacco Use Types [...] [address] [place] [id number] Trudi Grayson APRN TRACK MANAGER [address] [id number] 11/16/2022 Ancillary Procedure Cardiology Timothy Smith MD [address] [place] [id number] (Wo rk) documented as of this encounter Visit Diagnoses Diagnosis Need for prophylactic vaccination and in oculation against influenza documented in this encounter
--- OUTSIDE RECORDS SUMMARY | 2022-09-12 09:25 | XMS_ITS | Encounter Summary ---
:1940 Author Organization [place] Address [facility] [place] [address] Care Team Providers Name Role Phone Unavailable Primary Care Provider Unavailable Encounter Details Date Type Department Care Team Description 10/13/2004 Historic Screw Cutter INTERFACED REPORT Dasha Gonzalez MD [facility] [address] [facility] [address] [place], [place] [id number] (Wo rk) Social History Tobacco Use Types Packs/Day Years Used Date Smoking Tobacco: Never Alcohol Use Standard Drinks/Week Comments Yes 0 (1 standard drink = 0.6 oz pure alcoho l) Sex Assigned at Date Recorded Not on file documented as of this encounter Progress Notes Dasha Gonzalez MD - 09/06/2011 4:57 AM VEHICLE MAINTENANCE TECHNICIAN 1st ASS'T: Sabino Ceja 2nd ASS'T: PRE-OPERATIVE [...] condition. DASHA GONZALEZ MD MT: taj Document: [id number] CC: DASHA GONZALEZ MD [place], [place] Name: RADHA FAROOQ OPERATIVE REPORT Page 2 of 2 LCN: EYE DSC: 10/13/2004 [place], [place] Name: RADHA FAROOQ MR#: : Procedure Date: -86 1940 10/13/2004 Surgeon: DASHA GONZALEZ MD OPERATIVE REPORT Page 1 of 2 CLE MAINTENANCE TECHNICIAN documented in this encounter Plan of Treatment Upcoming Encounters Date Type Specialty Care Team Description 09/28/2022 Lab Lab 09/28/2022 Office Visit Cardiology Timothy Smith MD [address] [place] [id number] Trudi Grayson APRN DOCK GRADER [address] [id number] 11/16/2022 Ancillary Procedure Cardiology Timothy Smith MD [address] [place] [id number] (Wo rk) documented as of this encounter Visit Diagnoses Not on filedocumented in this encounter
--- OUTSIDE RECORDS SUMMARY | 2022-09-12 09:25 | XMS_ITS | Encounter Summary ---
:1940 Author Organization [place] Address [address] [facility] [place] [address] Care Team Providers Name Role Phone Nas Cardenas MD Primary Care Provider Unavailable Encounter Details Date Type Department Care Team Description 12/13/2012 Historic Results [facility] Heart Unknown, Doct or, Clinic [facility] or [address] [facility] [address] [place] [phone] Social History Tobacco Use Types Packs/Day Years [...] [address] [place] [address] Trudi Grayson APRN CUSTOMER ADVISOR [address] [place] [address] 11/16/2022 Ancillary Procedure Cardiology Timothy Smith MD [address] [place] [phone] (Wo rk) documented as of this encounter [...] on filedocumented in this encounter Care Teams Speech Therapist Relationship Specialty Start Date End Date Nas Cardenas MD PCP - General Family Practice 02/01/12 04/12/17 documented as of this encounter
--- OUTSIDE RECORDS SUMMARY | 2022-09-12 09:25 | XMS_ITS | Encounter Summary ---
:1940 Author Organization [place] Address [facility] [place] [address] Care Team Providers Name Role Phone Unavailable Primary Care Provider Unavailable Encounter Details Date Type Department Care Team Description 10/13/2004 Operative Report Lesvia Serrato MD (Horse Farm Manager) [facility] RADIATION O NCOLOGY [address] [facility] [place] [address] (Wo rk) Social History Tobacco Use Types Packs/Day Years Used Date Smoking Tobacco: Never Alcohol Use Standard Drinks/Week Comments Yes 0 (1 standard drink = 0.6 oz pure alcoho l) Sex Assigned at Date Recorded Not on file documented as of this encounter Miscellaneous Notes Op Note - Lesvia Serrato - 10/15/2004 12:00 AM REFRIGERATION SERVICE TECHNICIAN 1st ASS'T: 2nd ASS'T: PRE-OPERATIVE DIAGNOSIS: POST-OPERATIVE DIAGNOSIS: 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 Mr. Radha Villa is a [id number] with a diagnosis of right eye choroidal [...] cGy. LESVIA SERRATO MD MT: rosieg Document: [id number] [place], [place] Name: RADHA VILLA OPERATIVE REPORT Page 2 of 1 LCN: EYE DSC: 10/13/2004 [place], [place] Name: RADHA VILLA MR#: : Procedure Date: -86 1940 10/13/2004 Surgeon: LESVIA SERRATO MD OPERATIVE REPORT Page 1 of 1 IGERATION SERVICE TECHNICIAN documented in this encounter Plan of Treatment Upcoming Encounters Date Type Specialty Care Team Description 09/28/2022 Lab Lab 09/28/2022 Office Visit Cardiology Timothy Smith MD [address] [place] [id number] Trudi Grayson APRN AUTOMATIC LATHE SETTER [address] [id number] 11/16/2022 Ancillary Procedure Cardiology Timothy Smith MD [address] [place] [id number] (Wo rk) documented as of this encounter Visit Diagnoses Not on filedocumented in this encounter
--- OUTSIDE RECORDS SUMMARY | 2022-09-12 09:25 | XMS_ITS | Encounter Summary ---
:1940 Author Organization [place] Address [address] [facility] [place] [address] Care Team Providers Name Role Phone Herminia Coleman MD Primary Care Provider Unavailable Graham Licona MD Primary Care Provider [facility] Primary Care Provider [phone] Slava Hernandez PA-C Primary Care Provider Timothy Smith MD Unavailable Graham Licona MD Primary Care Provider Encounter Details Date Type Department Care Team Description 02/10/2013 Office Visit-[facility] Heart Rafael Smith MD [place] [address] [facility] [address] [place] [address] [place] [phone] Social History Tobacco Use Types Packs/Day Years [...] Physician: HERMINIA COLEMAN Referring Clinic: [facility] CURRENT DIAGNOSES 1. - Hyperlipidemia, 272.4 2. - Hypertension, 401.1 3. [place]-Recent Unspecified, 410.91 4. - CAD, 414.00 5. [...] Cardiology followup plan. Subsequently he went to [facility] and underwent a DC cardioversion. Apparently, sometime [...] [address] [place] [phone] Trudi Grayson APRN CNP [address] [place] [address] 11/16/2022 Ancillary Procedure Cardiology Timothy Smith MD [address] [place] [address] (Wo rk) documented as of this encounter Visit Diagnoses Not on filedocumented in this encounter Care Teams Spa Director/Finance Relationship Specialty Start Date End Date Herminia Coleman, PCP - General Family Practice 02/01/1203/31 Graham Moon MD PCP - General Family Practice 04/13/17 01/15/18 [facility] [address] [place] [address] Vinny Reinoso PCP - General 01/16/18 07/01/[address] [phone] Slava Hernandez, PCP - General Physician Pharmacy Scheduler 07/02/1806/02 [facility]IB[facility] RASMUSSEN [facility] [id number] [place] [address] [phone] Graham Licona MD PCP - General Family Medicine 06/30/21 [facility] [address] [place] [address] Timothy Smith MD Assigned Heart and 07/23/20 [address] Vascular Provider [address] [place] [id number] documented as of this encounter
--- OUTSIDE RECORDS SUMMARY | 2022-09-12 09:25 | XMS_ITS | Encounter Summary ---
:1940 Author Organization [place] Address [address] [facility] [place] [address] Care Team Providers Name Role Phone Nas Cardenas MD Primary Care Provider Unavailable Encounter Details Date Type Department Care Team Description 02/25/2013 Orders Only [facility] Guera Yap, Atrial flutter (H) [facility] RN (Primary Dx) Heart Care [address] [phone] Social History Tobacco Use Types Packs/Day Years [...] MD [address] [place] [phone] Trudi Grayson APRN PLYWOOD MATCHER [address] 970505 11/16/2022 Ancillary Procedure Cardiology Timothy Smith MD [address] [place] [phone] (Wo rk) documented as of this encounter Visit Diagnoses Diagnosis Atrial flutter (H) - Primary Atrial flutter documented in this encounter Care Teams Machinist Helper Marine Relationship Specialty Start Date End Date Nas Cardenas MD PCP - General Family Practice 02/01/12 04/12/17 documented as of this encounter
--- OUTSIDE RECORDS SUMMARY | 2022-09-12 09:26 | XMS_ITS | Encounter Summary ---
:1940 Author Organization [place] Address [facility] [place] [address] Care Team Providers Name Role Phone Unavailable Primary Care Provider Unavailable Reason for Visit Reason Comments RECHECK Would like to have some lab work done. Encounter Details Date Type Department Care Team Description 04/25/2004 [facility] MIX[facility]IPIDEMIA; Clinic [place] XXX RESIGNED XXX OTHER PSORIASIS [address] [place] [address] [place] [address] [place] [phone] Social History Tobacco Use Types Packs/Day Years [...] MD [address] [place] [phone] Trudi Grayson APRN DIVIDER OPERATOR [address] [address] 11/16/2022 Ancillary Procedure Cardiology Timothy Smith MD [address] [place] [address] (Wo rk) documented as of this encounter [...] CDT) athologist Signature Cholesterol 184 <200 mg/dL [facility] Comment: Cholesterol Reference Range: <200 ??The NCEP recommends further ? evaluation of: ? 1. ??Patients with cholesterol ? greater than 200 mg/dL ? if additional risk facto rs ? are present. ? 2. ??All patients with a ? cholesterol greater than ? 240 mg/dL. Triglycerides 172 (H) <150 mg/dL [facility] HDL Cholesterol 37 (L) >40 mg/dL [facility] LDL Cholesterol Calculated 113 0 - 129 mg/dL [facility] VLDL-Cholesterol 34 (H) 0 - 30 mg/dL [facility] Cholesterol/HDL Ratio 5.0 0.0 - 5.0 [facility] Specimen Anatomical Collection Method Collection Time Receive d Time (Source) Location / / Volume Laterality 04/25/2004 9:47 AM 4 9:52 CDT AM CDT Kannan Flores MD LABORATORY Performing Organization Address City/State/ZIP Code Phon e Number [facility] [address] [place] [address] [facility] (ABNORMAL) A.M.A. COMPREHENSIVE MET.PANEL (04/25/2004 9:47 AM CDT) athologist Signature Sodium 138 133 - 144 [facility] mmol/L [facility] Potassium 4.1 3.4 - 5.3 [facility] mmol[facility]L [facility] Chloride 105 94 - 109 [facility] mmol/L [facility] Carbon Dioxide 28 20 - 32 [facility] mmol/L [facility] Anion Gap 5 (L) 6 - 17 [facility] mmol/L [facility] Glucose 98 60 - 115 [facility] mg/dL [facility] Urea Nitrogen 22 7 - 30 [facility] mg/dL [facility] Creatinine 0.80 0.80 - [facility] 1.50 mg/dL [facility] GFR Estimate >80 >60 [facility] mL/min/1.7 [facility] m2 GFR Estimate If >80 >60 [facility] Black mL/min/1.7 [facility] m2 Calcium 9.0 8.5 - 10.4 [facility] mg/dL [facility] Bilirubin Total 0.5 0.2 - 1.3 [facility] mg/dL [facility] Albumin 3.7 3.2 - 4.5 [facility] g/dL [facility] Protein Total 7.1 6.0 - 8.2 [facility] g/dL [facility] Alkaline 66 40 - 150 [facility] Phosphatase U/L [facility] ALT 52 0 - 70 U/L [facility] AST 40 0 - 55 U/L [facility] Specimen Anatomical Collection Method Collection Time Receive d Time (Source) Location / / Volume Laterality 04/25/2004 9:47 AM 4 9:52 CDT AM CDT Kannan Flores MD LABORATORY Performing Organization Address City/State/ZIP Code Phon e Number [facility] [address] [place] [address] [facility] documented in this encounter Visit Diagnoses Diagnosis Mixed hyperlipidemia Other psoriasis documented in this encounter
--- OUTSIDE RECORDS SUMMARY | 2022-09-12 09:26 | XMS_ITS | Encounter Summary ---
:1940 Author Organization [place] Address [address] [facility] 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 [facility]IOR [facility] Encounter Details Date Type Department Care Team Description 11/12/2003 Telephone [facility]WR[facility] PHYSICIAN Stephon Stone IN STORE MARKETER - ASSOCIATES - CARE PHYSICIAN INTRODUCTI ON ([facility] SENIOR MEMBER) [address] [place] [address] [place] [phone] Social History Tobacco Use Types Packs/Day Years Used Date Smoking Tobacco: Never Assessed Sex Assigned at Date Recorded Not on file documented as of this encounter Miscellaneous Notes Telephone Encounter - 11/12/2003 11:59 PM 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 No answer, did not leave a message, will require a return call at a later time. Amanda Stone, SIENNA Case Ma geoffbenita MICHELLE documented in this encounter Plan of Treatment Upcoming Encounters Date Type Specialty Care Team Description 09/28/2022 Lab Lab 09/28/2022 Office Visit Cardiology Timothy Smith MD [address] [place] [phone] Trudi Grayson APRN CONCAVER [address] [phone] 11/16/2022 Ancillary Procedure Cardiology Timothy Smith MD [address] [place] [phone] (Wo rk) documented as of this encounter Visit Diagnoses Not on filedocumented in this encounter
[2022-09-12 14:03] LABS: Free T4 Free Thyroxine* 0.91 ng/dL (0.70-1.85)
== END 2022-09-12 09:00 | disposition home or self-care (01) ==
PROVIDERS: PCP Family Medicine; Visit Provider Family Medicine
DX: E03.9 Hypothyroidism, unspecified (principal)
CPT/HCPCS: 84439; 84443

== ENCOUNTER 2023-03-13 07:50 | Outpatient (CLI) | payer MEDICARE, BC, SELFPAY | END 2023-03-13 07:51 | disposition home or self-care (01) | LOC: WOUND 07:51 | PROVIDERS: PCP Family Medicine; Visit Provider Nurse Practitioner Family | DX: E11.628 Type 2 diabetes mellitus with other skin complications (principal); M79.81 Nontraumatic hematoma of soft tissue; I87.2 Venous insufficiency (chronic) (peripheral); Z79.84 Long term (current) use of oral hypoglycemic drugs | CPT/HCPCS: 11043; 99213 ==

== ENCOUNTER 2023-03-20 10:38 | Outpatient (CLI) | payer MEDICARE, BC, SELFPAY | END 2023-03-20 10:39 | disposition home or self-care (01) | LOC: WOUND 10:38 | PROVIDERS: PCP Family Medicine; Visit Provider Physician Assistant Surgical | DX: E11.628 Type 2 diabetes mellitus with other skin complications (principal); M79.81 Nontraumatic hematoma of soft tissue; I87.2 Venous insufficiency (chronic) (peripheral) | CPT/HCPCS: 11042; 87070 ==

== ENCOUNTER 2023-03-22 08:41 | Outpatient (CLI) | payer MEDICARE, BC, SELFPAY | END 2023-03-22 08:42 | disposition home or self-care (01) | LOC: WOUND 08:41 | PROVIDERS: PCP Family Medicine; Visit Provider Family Medicine | DX: M79.81 Nontraumatic hematoma of soft tissue (principal); E11.628 Type 2 diabetes mellitus with other skin complications; Z79.84 Long term (current) use of oral hypoglycemic drugs | CPT/HCPCS: 99212 ==

== ENCOUNTER 2023-03-26 08:40 | Outpatient (CLI) | payer MEDICARE, BC, SELFPAY | END 2023-03-26 08:41 | disposition home or self-care (01) | LOC: WOUND 08:40 | PROVIDERS: PCP Family Medicine; Visit Provider Family Medicine | DX: M79.81 Nontraumatic hematoma of soft tissue (principal); E11.628 Type 2 diabetes mellitus with other skin complications; I87.2 Venous insufficiency (chronic) (peripheral); I83.91 Asymptomatic varicose veins of right lower extremity | CPT/HCPCS: 99213 ==

== ENCOUNTER 2023-03-29 10:19 | Outpatient (CLI) | payer MEDICARE, BC, SELFPAY | END 2023-03-29 10:20 | disposition home or self-care (01) | LOC: WOUND 10:19 | PROVIDERS: PCP Family Medicine; Visit Provider Family Medicine | DX: E11.622 Type 2 diabetes mellitus with other skin ulcer (principal); L97.812 Non-pressure chronic ulcer of other part of right lower leg with fat layer exposed; I87.2 Venous insufficiency (chronic) (peripheral); Z79.4 Long term (current) use of insulin; Z79.84 Long term (current) use of oral hypoglycemic drugs | CPT/HCPCS: 11042 ==

== ENCOUNTER 2023-04-04 08:51 | Outpatient (CLI) | payer MEDICARE, BC, SELFPAY | END 2023-04-04 08:52 | disposition home or self-care (01) | PROVIDERS: PCP Family Medicine; Visit Provider Surgery | DX: M79.81 Nontraumatic hematoma of soft tissue (principal); I87.2 Venous insufficiency (chronic) (peripheral); I83.91 Asymptomatic varicose veins of right lower extremity; E11.622 Type 2 diabetes mellitus with other skin ulcer | CPT/HCPCS: 99212 ==

== ENCOUNTER 2023-04-06 09:18 | Outpatient (CLI) | payer MEDICARE, BC, SELFPAY | END 2023-04-06 09:19 | disposition home or self-care (01) | LOC: WOUND 09:18 | PROVIDERS: PCP Family Medicine; Visit Provider Surgery | DX: M79.81 Nontraumatic hematoma of soft tissue (principal); E11.628 Type 2 diabetes mellitus with other skin complications; I87.2 Venous insufficiency (chronic) (peripheral); I83.91 Asymptomatic varicose veins of right lower extremity; E11.622 Type 2 diabetes mellitus with other skin ulcer | CPT/HCPCS: 99212 ==

== ENCOUNTER 2023-04-09 08:39 | Outpatient (CLI) | payer MEDICARE, BC, SELFPAY | END 2023-04-09 08:40 | disposition home or self-care (01) | LOC: WOUND 08:39 | PROVIDERS: PCP Family Medicine; Visit Provider Nurse Practitioner Family | DX: M79.81 Nontraumatic hematoma of soft tissue (principal); E11.628 Type 2 diabetes mellitus with other skin complications; I87.2 Venous insufficiency (chronic) (peripheral); I83.91 Asymptomatic varicose veins of right lower extremity; E11.622 Type 2 diabetes mellitus with other skin ulcer | CPT/HCPCS: 99212 ==

== ENCOUNTER 2023-04-12 09:20 | Outpatient (CLI) | payer MEDICARE, BC, SELFPAY | END 2023-04-12 09:21 | disposition home or self-care (01) | PROVIDERS: PCP Family Medicine; Visit Provider Nurse Practitioner Family | DX: E11.622 Type 2 diabetes mellitus with other skin ulcer (principal); L97.212 Non-pressure chronic ulcer of right calf with fat layer exposed; S81.001A Unspecified open wound, right knee, initial encounter; Z79.84 Long term (current) use of oral hypoglycemic drugs | CPT/HCPCS: 11042; 97602 ==

== ENCOUNTER 2023-04-16 08:25 | Outpatient (CLI) | payer MEDICARE, BC, SELFPAY | END 2023-04-16 08:26 | disposition home or self-care (01) | LOC: WOUND 08:26 | PROVIDERS: PCP Family Medicine; Visit Provider Nurse Practitioner Family | DX: M79.81 Nontraumatic hematoma of soft tissue (principal); E11.628 Type 2 diabetes mellitus with other skin complications; I87.2 Venous insufficiency (chronic) (peripheral); I83.91 Asymptomatic varicose veins of right lower extremity; E11.622 Type 2 diabetes mellitus with other skin ulcer | CPT/HCPCS: 99212 ==

== ENCOUNTER 2023-04-19 10:59 | Outpatient (CLI) | payer MEDICARE, BC, SELFPAY | END 2023-04-19 11:00 | disposition home or self-care (01) | LOC: WOUND 10:59 | PROVIDERS: PCP Family Medicine; Visit Provider Nurse Practitioner Family | DX: E11.622 Type 2 diabetes mellitus with other skin ulcer (principal); L97.812 Non-pressure chronic ulcer of other part of right lower leg with fat layer exposed; Z79.4 Long term (current) use of insulin; Z79.84 Long term (current) use of oral hypoglycemic drugs | CPT/HCPCS: 11042 ==

== ENCOUNTER 2023-04-24 08:23 | Outpatient (CLI) | payer MEDICARE, BC, SELFPAY | END 2023-04-24 08:24 | disposition home or self-care (01) | LOC: WOUND 08:23 | PROVIDERS: PCP Family Medicine; Visit Provider Nurse Practitioner Family | DX: E11.622 Type 2 diabetes mellitus with other skin ulcer (principal); L97.212 Non-pressure chronic ulcer of right calf with fat layer exposed; Z79.4 Long term (current) use of insulin; Z79.84 Long term (current) use of oral hypoglycemic drugs | CPT/HCPCS: 99211 ==

== ENCOUNTER 2023-04-26 08:56 | Outpatient (CLI) | payer MEDICARE, BC, SELFPAY | END 2023-04-26 08:57 | disposition home or self-care (01) | LOC: WOUND 08:57 | PROVIDERS: PCP Family Medicine; Visit Provider Nurse Practitioner Family | DX: E11.622 Type 2 diabetes mellitus with other skin ulcer (principal); L97.812 Non-pressure chronic ulcer of other part of right lower leg with fat layer exposed; Z79.4 Long term (current) use of insulin; Z79.84 Long term (current) use of oral hypoglycemic drugs | CPT/HCPCS: 11042 ==

== ENCOUNTER 2023-05-01 08:36 | Outpatient (CLI) | payer MEDICARE, BC, SELFPAY | END 2023-05-01 08:37 | disposition home or self-care (01) | LOC: WOUND 08:36 | PROVIDERS: PCP Family Medicine; Visit Provider Nurse Practitioner Family | DX: E11.622 Type 2 diabetes mellitus with other skin ulcer (principal); I87.2 Venous insufficiency (chronic) (peripheral); L97.212 Non-pressure chronic ulcer of right calf with fat layer exposed; Z79.4 Long term (current) use of insulin; Z79.84 Long term (current) use of oral hypoglycemic drugs | CPT/HCPCS: 99212 ==

== ENCOUNTER 2023-05-03 08:48 | Outpatient (CLI) | payer MEDICARE, BC, SELFPAY | END 2023-05-03 08:49 | disposition home or self-care (01) | LOC: WOUND 08:48 | PROVIDERS: PCP Family Medicine; Visit Provider Nurse Practitioner Family | DX: E11.622 Type 2 diabetes mellitus with other skin ulcer (principal); L97.212 Non-pressure chronic ulcer of right calf with fat layer exposed; Z79.4 Long term (current) use of insulin; Z79.84 Long term (current) use of oral hypoglycemic drugs | CPT/HCPCS: 11042 ==

== ENCOUNTER 2023-05-08 07:50 | Outpatient (CLI) | payer MEDICARE, BC, SELFPAY | END 2023-05-08 07:51 | disposition home or self-care (01) | LOC: WOUND 07:50 | PROVIDERS: PCP Family Medicine; Visit Provider Nurse Practitioner Family | DX: M79.81 Nontraumatic hematoma of soft tissue (principal); E11.622 Type 2 diabetes mellitus with other skin ulcer; L97.212 Non-pressure chronic ulcer of right calf with fat layer exposed | CPT/HCPCS: 99212 ==

== ENCOUNTER 2023-05-10 10:18 | Outpatient (CLI) | payer MEDICARE, BC, SELFPAY | END 2023-05-10 10:19 | disposition home or self-care (01) | LOC: WOUND 10:18 | PROVIDERS: PCP Family Medicine; Visit Provider Nurse Practitioner Family | DX: E11.622 Type 2 diabetes mellitus with other skin ulcer (principal); L97.812 Non-pressure chronic ulcer of other part of right lower leg with fat layer exposed; Z79.4 Long term (current) use of insulin; Z79.84 Long term (current) use of oral hypoglycemic drugs | CPT/HCPCS: 11042 ==

== ENCOUNTER 2023-05-17 10:18 | Outpatient (CLI) | payer MEDICARE, BC, SELFPAY | END 2023-05-17 10:19 | disposition home or self-care (01) | LOC: WOUND 10:18 | PROVIDERS: PCP Family Medicine; Visit Provider Nurse Practitioner Family | DX: E11.622 Type 2 diabetes mellitus with other skin ulcer (principal); L97.812 Non-pressure chronic ulcer of other part of right lower leg with fat layer exposed; Z79.4 Long term (current) use of insulin; Z79.84 Long term (current) use of oral hypoglycemic drugs | CPT/HCPCS: 11042 ==

== ENCOUNTER 2023-05-24 13:46 | Outpatient (CLI) | payer MEDICARE, BC, SELFPAY | END 2023-05-24 13:47 | disposition home or self-care (01) | LOC: WOUND 13:46 | PROVIDERS: PCP Family Medicine; Visit Provider Nurse Practitioner Family | DX: E11.622 Type 2 diabetes mellitus with other skin ulcer (principal); L97.212 Non-pressure chronic ulcer of right calf with fat layer exposed; Z79.84 Long term (current) use of oral hypoglycemic drugs | CPT/HCPCS: 11042 ==

== ENCOUNTER 2023-05-31 09:47 | Outpatient (CLI) | payer MEDICARE, BC, SELFPAY | END 2023-05-31 09:48 | disposition home or self-care (01) | LOC: WOUND 09:47 | PROVIDERS: PCP Family Medicine; Visit Provider Nurse Practitioner Family | DX: E11.622 Type 2 diabetes mellitus with other skin ulcer (principal); L97.812 Non-pressure chronic ulcer of other part of right lower leg with fat layer exposed; S80.211A Abrasion, right knee, initial encounter; S80.212A Abrasion, left knee, initial encounter; S51.811A Laceration without foreign body of right forearm, initial encounter; Z79.4 Long term (current) use of insulin; Z79.84 Long term (current) use of oral hypoglycemic drugs | CPT/HCPCS: 11042; 97597; 97602; 99213 ==

== ENCOUNTER 2023-06-07 09:32 | Outpatient (CLI) | payer MEDICARE, BC, SELFPAY | END 2023-06-07 09:33 | disposition home or self-care (01) | PROVIDERS: PCP Family Medicine; Visit Provider Nurse Practitioner Family | DX: L03.116 Cellulitis of left lower limb (principal); E11.622 Type 2 diabetes mellitus with other skin ulcer; L97.212 Non-pressure chronic ulcer of right calf with fat layer exposed; M79.81 Nontraumatic hematoma of soft tissue; I87.2 Venous insufficiency (chronic) (peripheral); Z79.4 Long term (current) use of insulin; Z79.84 Long term (current) use of oral hypoglycemic drugs | CPT/HCPCS: 99215 ==

== ENCOUNTER 2023-06-11 12:38 | Outpatient (CLI) | payer MEDICARE, BC, SELFPAY | END 2023-06-11 12:39 | disposition home or self-care (01) | LOC: WOUND 12:39 | PROVIDERS: PCP Family Medicine; Visit Provider Nurse Practitioner Family | DX: E11.622 Type 2 diabetes mellitus with other skin ulcer (principal); L97.212 Non-pressure chronic ulcer of right calf with fat layer exposed; Z79.84 Long term (current) use of oral hypoglycemic drugs | CPT/HCPCS: 99214 ==

== ENCOUNTER 2023-06-14 09:52 | Outpatient (CLI) | payer MEDICARE, BC, SELFPAY | END 2023-06-14 09:53 | disposition home or self-care (01) | LOC: WOUND 09:52 | PROVIDERS: PCP Family Medicine; Visit Provider Nurse Practitioner Family | DX: E11.622 Type 2 diabetes mellitus with other skin ulcer (principal); L97.212 Non-pressure chronic ulcer of right calf with fat layer exposed; I87.2 Venous insufficiency (chronic) (peripheral); S50.811A Abrasion of right forearm, initial encounter; Z79.4 Long term (current) use of insulin; Z79.84 Long term (current) use of oral hypoglycemic drugs | CPT/HCPCS: 99213 ==

== ENCOUNTER 2023-10-08 14:10 | Outpatient (CLI) | payer MEDICARE, BC, SELFPAY | END 2023-10-08 14:11 | disposition home or self-care (01) | LOC: AMB 10-12 10:09 | PROVIDERS: PCP Family Medicine; Visit Provider Family Medicine | DX: S89.92XA Unspecified injury of left lower leg, initial encounter (principal); S81.812A Laceration without foreign body, left lower leg, initial encounter; W18.30XA Fall on same level, unspecified, initial encounter; W26.8XXA Contact with other sharp object(s), not elsewhere classified, initial encounter; Y92.007 Garden or yard of unspecified non-institutional (private) residence as the place of occurrence of the external cause | CPT/HCPCS: A0425; A0427 ==

== ENCOUNTER 2023-10-08 14:44 | Emergency (ER) | payer MEDICARE, BC, SELFPAY ==
[2023-10-08] VITALS (31 sets, daily range): BP systolic 99–129; BP diastolic 51–107; PULSE 60–74; RESP 16; TEMP 36.3; O2SAT 86–95; BMI 32.1
--- NOTE | 2023-10-08 15:29 | ED.NURSE ---
Pt arrived with tourniquet applied @ 1415 by EMS. Still in place upon arrival to ER. Bleeding well controlled with tourniquet in place. Tourniquet removed @ [address] Decker. Area of bleeding noted on lower outer aspect of the wound. Pressure applied. Area numbed by Dr. Decker, cleansed, then pressure dressing applied with gauze and coban.
--- NOTE | 2023-10-08 18:46 | ED_ITS ---
HPI - General Adult General Chief complaint: Laceration/Wound Stated complaint: Fall, leg lac Time Seen by Provider: 10/08/23 14:49 History of Present Illness HPI narrative: Patient fell outside at cousin's house and missed single step injuring LLE in fall with large laceration. On Eliquis daily. Has pacemaker. EMS started 20 G IV and 50 mcg fentanyl administered. Blood sugar was 221. Tourniquet applied on scene at 14:15, removed in triage by MD at 14:48. 83 year old man presenting to the ER via EMS after a fall outside relative's home. Underlying history of diabetic neuropathy and deconditioning. He is anticoagulated with a history of atrial fibrillation/flutter. Notes to have sustained a slip and fall or catching himself on stairs up the outer steps. [place]. Ultimately lacerating the anterior aspect of his left lower leg. Denies any other injury. Denies loss of consciousness or hitting his head. No new shortness of breath or lightheadedness. No abdominal pain. Blood sugar on scene was 221. EMS suspects up to a pt of blood loss illustrated in pictures of the scene. Police had been applying pressure. EMS arrived and placed a tourniquet. The noted some spurting in brisk bleeding from the more distal aspect of this wound. EMS gave fentanyl for pain. Related Data Home Medications Medication Instructions Recorded Confirmed acetaminophen 500 mg tablet 1,000 mg PO TID PRN 04/11/22 10/12/23 amiodarone 200 mg tablet 200 mg PO DAILY 04/11/22 10/12/23 furosemide 40 mg tablet 40 mg PO DAILY 04/11/22 10/12/23 loratadine 10 mg tablet (Allergy 10 mg PO QDAY PRN 04/11/22 10/12/23 Relief (loratadine)) nitroglycerin 0.4 mg sublingual 0.4 mg sublingual ONCE PRN 04/11/22 10/12/23 tablet apixaban 2.5 mg tablet (Eliquis) 1.25 mg PO BID 10/12/23 10/12/23 insulin glargine 100 unit/mL (3 14 unit subcut QDAY 10/12/23 mL) subcutaneous pen (Lantus Solostar U-100 Insulin) metoprolol succinate 50 mg 50 mg PO DAILY 10/12/23 10/12/23 tablet,extended release 24 hr Previous Rx's Medication Instructions Recorded acyclovir 400 mg tablet 400 mg PO TID #42 tabs 10/10/22 fluticasone propionate 50 2 spray intranasal QDAY 30 days 10/23/22 mcg/actuation nasal #16 grams spray,suspension tamsulosin 0.4 mg capsule See Rx Instructions .Route 11/19/22 .COMPLEX #90 caps glimepiride 2 mg tablet 2 mg PO DAILY #90 tabs 03/05/23 pen needle, diabetic 31 gauge x #100 ea 04/25/23 5/16 (Pen Needle) blood sugar diagnostic (Contour #100 ea 07/24/23 Next Test Strips) atorvastatin 20 mg tablet 20 mg PO .Bedtime #90 tabs 09/19/23 fenofibrate 160 mg tablet 160 mg PO DAILY #90 tabs 09/19/23 levothyroxine 50 mcg tablet 50 mcg PO QDAY #90 tabs 09/19/23 metolazone 2.5 mg tablet 2.5 mg PO 3XW #60 tabs 09/19/23 omeprazole 20 mg capsule,delayed 20 mg PO BID #180 caps 09/19/23 release tramadol 50 mg tablet See Rx Instructions PO Q6H PRN 10/12/23 pain #120 tabs Allergies Allergy/AdvReac Type Severity Reaction Status Date / Time adhesive Allergy Unknown Rash Verified 10/12/23 08:33 rosuvastatin Allergy Unknown muscle Verified 10/12/23 08:33 soreness/weakness Review of Systems Status of ROS: Reports: 6 or more systems reviewed and unremarkable except as noted in History and below PFSH PFSH Medical History Cellulitis of lower extremity ?L03.119 - Cellulitis of unspecified part of limb (ICD-10) Canales's esophagus with dysplasia, unspecified ?K22.719 - Canales's esophagus with dysplasia, unspecified (ICD-10) Prostate mass ?N42.89 - Other specified disorders of prostate (ICD-10) Melanoma of eye ?C69.90 - Malignant neoplasm of unspecified site of unspecified eye (ICD-10) Venous stasis ulcer ?I83.009 - Varicose veins of unspecified lower extremity with ulcer of unspecified site (ICD-10) ?L97.909 - Non-pressure chronic ulcer of unspecified part of unspecified lower leg with unspecified severity (ICD-10) History of ventricular tachycardia ?Z86.79 - Personal history of other diseases of the circulatory system (ICD- 10) Health care directive on file (11/29/21) ?Z78.9 - Other specified health status (ICD-10) Surgical History History of hip surgery (11/10/21) ?Z98.890 - Other specified postprocedural states (ICD-10) Status post implantation of automatic cardioverter/defibrillator (AICD) ?Z95.810 - Presence of automatic (implantable) cardiac defibrillator (ICD-10) 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) ?Z96.641 - Presence of right artificial hip joint (ICD-10) 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 Quite calm. Subtly hard of hearing. Is breathing easily. Head is atraumatic. Neck is supple. No pain to palpation of neck or back. Trace and clearing crepitus in the base of the lungs. Heart is in a lower rate. Seems to be regular. Oropharynx without evidence of injury. No pain to palpation across anterior chest. Abdomen is overweight soft nontender. Small bruising on the lower abdomen consistent with insulin injections. No injuries to the upper extremities. Lower extremities with hemosiderin depos ition and what appears to be some chronic edematous change. 1+ pitting. The left lower leg in question has 5 in laceration in the anterior lateral lower leg. Zigzag in an S orientation. The upper vertical segment is primarily a deep skin tear. Maximal with about an inch and half. In the middle segment as it moves laterally transitions to a deeper laceration. Clearly full dermal at the most distal aspect. Fascia of the lateral anterior tibialis muscle group is just visualized. Assessing tourniquet. I am able to place my fingers under the tourniquet without significant difficulty. I also note that he has strong dorsalis pedis pulses as assessed on the left. I do take down the tourniquet then. The wound begins to bleed dark blood readily from the anterior distal aspect of fatty t issue. Two small points of vascularity appear to be most involved 1 on each side of the wound. Return to anesthetize with approximately 10 mL of lidocaine and epinephrine also in an effort to slow bleeding/vasoconstrict. Staff assist with irrigation in cleaning with sterile water and Hibiclens solution. Pressure dressing is applied and this does control bleeding until I am able to attend further to repair in busy emergency department. Const: Vital Signs, click to edit/add: Vital Signs - 24 hr 10/08/23 14:48 10/08/23 15:17 10/08/23 15:30 Temperature 97.4 F L Pulse Rate 64 Pulse Rate [Pulse Oximeter] 66 Respiratory Rate 16 Blood Pressure 107/55 L Blood Pressure [Ri ght Upper Arm] 116/87 Pulse Oximetry 91 [facility] 10/08/23 15:32 10/08/23 15:45 10/08/23 15:47 Temperature Pulse Rate 65 60 66 Pulse Rate [Pulse Oximeter] Respiratory Rate Blood Pressure 114/59 L 119/54 L Blood Pressure [Ri ght Upper Arm] Pulse Oximetry 87 L 91 89 [facility] 10/08/23 16:00 10/08/23 16:02 10/08/23 16:15 Temperature Pulse Rate 66 68 67 Pulse Rate [Pulse Oximeter] Respiratory Rate Blood Pressure 110/54 L Blood Pressure [Ri ght Upper Arm] Pulse Oximetry 91 91 94 [facility] 10/08/23 16:17 10/08/23 16:30 10/08/23 16:32 Temperature Pulse Rate 62 65 65 Pulse Rate [Pulse Oximeter] Respiratory Rate Blood Pressure 119/78 117/107 H Blood Pressure [Ri ght Upper Arm] Pulse Oximetry 91 89 89 [facility] 10/08/23 16:45 10/08/23 16:47 10/08/23 17:00 Temperature Pulse Rate 64 66 63 Pulse Rate [Pulse Oximeter] Respiratory Rate Blood Pressure 105/60 Blood Pressure [Ri ght Upper Arm] Pulse Oximetry 92 86 L 87 L Oxygen Delivery [facility] 10/08/23 17:02 10/08/23 17:15 10/08/23 17:17 Temperature Pulse Rate 63 64 65 Pulse Rate [Pulse Oximeter] Respiratory Rate Blood Pressure 107/58 L 105/59 L Blood Pressure [Ri ght Upper Arm] Pulse Oximetry 92 87 L 86 L Oxygen Delivery [facility] thod 10/08/23 17:30 10/08/23 17:32 10/08/23 17:45 Temperature Pulse Rate 64 66 67 Pulse Rate [Pulse Oximeter] Respiratory Rate Blood Pressure 119/105 H Blood Pressure [Ri ght Upper Arm] Pulse Oximetry 87 L 89 91 Oxygen Delivery [facility] thod 10/08/23 17:47 10/08/23 18:00 10/08/23 18:02 Temperature Pulse Rate 63 65 65 Pulse Rate [Pulse Oximeter] Respiratory Rate Blood Pressure 129/51 L 108/53 L Blood Pressure [Ri ght Upper Arm] Pulse Oximetry 89 90 92 Oxygen Delivery Me thod 10/08/23 18:15 10/08/23 18:17 10/08/23 18:30 Temperature Pulse Rate 64 63 71 Pulse Rate [Pulse Oximeter] Respiratory Rate Blood Pressure 102/52 L Blood Pressure [Ri ght Upper Arm] Pulse Oximetry 91 91 90 Oxygen Delivery [facility] thod 10/08/23 18:32 Temperature Pulse Rate 71 Pulse Rate [Pulse Oximeter] Respiratory Rate Blood Pressure 99/51 L Blood Pressure [Ri ght Upper Arm] Pulse Oximetry 91 [facility] Vital Signs Vital signs: Initial Vital Signs Temperature 97.4 F L 10/08/23 14:48 Temperature Source Temporal Artery Scan 10/08/23 14:48 Pulse Rate 66 10/08/23 14:48 Pulse Rhythm Regular 10/08/23 14:48 Respiratory Rate 16 10/08/23 14:48 Blood Pressure 116/87 10/08/23 14:48 Blood Pressure Mean 96 10/08/23 14:48 Blood Pressure Position Sitting 10/08/23 14:48 Pulse Oximetry 91 01/08/24 14:48 Oxygen Delivery Method Room Air 10/08/23 14:48 Vital Signs Temperature 97.4 F L 10/08/23 14:48 Pulse Rate 66 10/08/23 14:48 Respiratory Rate 16 10/08/23 14:48 Blood Pressure 116/87 10/08/23 14:48 Pulse Oximetry 91 10/08/23 14:48 Oxygen Delivery Method Room Air 10/08/23 14:48 Temperature 97.4 F L 10/08/23 14:48 Pulse Rate 67 10/08/23 18:47 Respiratory Rate 16 10/08/23 14:48 Blood Pressure 111/54 L 10/08/23 18:47 Pulse Oximetry 95 10/08/23 18:47 Oxygen Delivery Method Room Air 10/08/23 14:48 Medical Decision Making MDM Narrative Medical decision making narrative: Appears generally well. Vitals are reassuring. Do not think we need to do laboratory evaluation here. He does however receive IV fluids here in the emergency department. Uncovering the wound again bleeds briskly. Looks to have achieved good an esthesia from injection as above. Applying pressure further medial to the more anterior vessel the stops the bleeding and I am able to apply silver nitrate cautery. This seems to help a little but with necessary manipulation begins to bleed again. Ultimately I oversew this vessel with 6-0 Vicryl within the fatty tissue. Still ooze is lightly. Silver nitrate reapplied. Able to turn attention to sewing. Concern of reopening due to tension of this wound. Lower half of laceration is repaired with combination of larger horizontal mattress and smaller interrupted Ethilon sutures. Difficult due to delicacy of skin. Upper 3rd to 1/2 of this laceration is closed with staged Steri-Strips and benzoin. Able to reduce the width of the upper laceration by 2/3. Quite well approximated lower half. Antibiotic ointment applied over sutured aspect and Vaseline gauze. Telfa over Steri-Strips. All covered with gauze and Coban pressure dressing. Did ooze prior to bandage cover just a little bit from puncture wounds from suturing primarily. It appears that the primary bleeder has been controlled. Instructions given to daughter and spouse who accompanied here today. Further dressing supplies given. Spouse was asking about admission. I do not see any indication for that at this time. Seems otherwise well and I think is quite well repaired. Can certainly return if bleeding through this dressing. She does seem bothered by the ED of dressing changes. Perhaps it would be good for this to be done in the office, possibly the wound clinic. Monitor closely for infection but I would not initiate antibiotics at this time. Did trim left great toenail as requested by Mr. Villa. He tolerated all this quite well. Periodically drifting off and shaking his feet in sleep. Vitally well over time in the emergency department See patient discharge plan Discharge Plan Discharge Clinical Impression: Skin tear Laceration of leg Qualifiers: Encounter type: subsequent encounter Laterality: left Qualified Code(s): S81.812D - Laceration without foreign body, left lower leg, subsequent encounter Patient Disposition: Home w/ Parent or Adult Condition: Improved Additional Instructions: leave this current dressing on until sunday. per your preference, follow up in clinic or wound clinic for a dressing change at that time. then change dressing daily or per their recommendations. be sure to get leg up while at rest. watch for spreading redness after 2 days, increasing swelling/redness/pain, purulent drainage. can trim the edges of the steri-strips away as the peel off so that they don't get caught on something and completely peel away. leave these on as long as possible. sutures out in 10 - 12 days. avoid soaking while sutures or steris are in/on. if bleed through this dressing, consider trying to redress and if bleed through that, return to the ER. Prescriptions: No Action metoprolol succinate 50 mg tablet extended release 24 hr 50 mg PO DAILY Eliquis 2.5 mg tablet 1.25 mg PO BID insulin glargine [Lantus Solostar U-100 Insulin] 100 unit/mL (3 mL) insulin pen 14 unit subcut QDAY tramadol 50 mg tablet See Rx Instructions PO Q6H PRN (Reason: pain) Qty: 120 2RF Rx Instructions: 1-2 tabs Q6H prn orally every 6 hours PRN; acetaminophen 500 mg tablet 1,000 mg PO TID PRN furosemide 40 mg tablet 40 mg PO DAILY loratadine [Allergy Relief (loratadine)] 10 mg tablet 10 mg PO QDAY PRN amiodarone 200 mg tablet 200 mg PO DAILY nitroglycerin 0.4 mg tablet, sublingual 0.4 mg sublingual ONCE PRN Rx Instructions: as a single dose; administer 5-10 minutes before situation known to precipitate angina attack acyclovir 400 mg tablet 400 mg PO TID Qty: 42 3RF fluticasone propionate 50 mcg/actuation spray,suspension 2 spray intranasal QDAY 30 Days Qty: 16 11RF Rx Instructions: administer into each nostril tamsulosin 0.4 mg capsule See Rx Instructions .ROUTE .COMPLEX Qty: 90 3RF Dose Instruction: TAKE 1 CAPSULE DAILY Rx Instructions: TAKE 1 CAPSULE DAILY glimepiride 2 mg tablet 2 mg PO DAILY Qty: 90 3RF (DME) pen needle, diabetic [Pen Needle] 31 gauge x 5/16 needle See Rx Instructions .Route Qty: 100 2RF Rx Instructions: TO USE WITH LANTUS PEN ONCE DAILY (DME) Contour Next Test Strips Strip See Rx Instructions .ROUTE .COMPLEX Qty: 100 3RF Dose Instruction: USE TO TEST BLOOD SUGAR ONCE DAILY Rx Instructions: USE TO TEST BLOOD SUGAR ONCE DAILY fenofibrate 160 mg tablet 160 mg PO DAILY Qty: 90 0RF Rx Instructions: WITH FOOD atorvastatin 20 mg tablet 20 mg PO .Bedtime Qty: 90 0RF omeprazole 20 mg capsule,delayed release(DR/EC) 20 mg PO BID Qty: 180 0RF Rx Instructions: TAKE ONE CAPSULE BY MOUTH TWICE A DAY BEFORE MEALS levothyroxine 50 mcg tablet 50 mcg PO QDAY Qty: 90 0RF metolazone 2.5 mg tablet 2.5 mg PO 3XW Qty: 60 3RF Follow Up/Referrals: Juan José Licona MD [Primary Care Provider] - Stand Alone Forms: [employer] Info Instructions
--- NOTE | 2023-10-08 18:59 | ED.NURSE ---
Pt did not want to take his bloody shoes and socks home with him. These were thrown away as requested by the patient.
== END 2023-10-08 18:58 | disposition home or self-care (01) ==
PROVIDERS: Emergency Provider Family Medicine; PCP Family Medicine
DX: S81.812A Laceration without foreign body, left lower leg, initial encounter (principal); W01.0XXA Fall on same level from slipping, tripping and stumbling without subsequent striking against object, initial encounter
CPT/HCPCS: 12001; 99283; 99284

== ENCOUNTER 2023-10-12 09:43 | Outpatient (CLI) | payer MEDICARE, BC, SELFPAY ==
--- OUTSIDE RECORDS SUMMARY | 2023-10-12 09:50 | XMS_ITS | Clinical Summary ---
Author Name Unknown Organization [place] Address [facility] [place] [address] Care Team Providers Care Medical Cost Consultant Name Role Phone Graham Licona MD Primary Care Provider [phone] Trudi Grayson APRN PROSTHETIST Unavailable [phone] Steven Canchola MD Unavailable + Allergies Active Allergy Reactions Criticality Noted Date Comments Adhesive Tape Rash Low 01/20/2022 Pravastatin Rash Medium 06/30/2021 Medications Medication Sig Dispensed Refills Start Date End Date Status ACYCLOVIR 400 MG OR TABS 1 TABLET 3 TIMES DAILY-as need for Cold sores 30 6 04/25/2004 Active fenofibrate 160 MG tablet Take 160 mg by mouth daily. 0 Active atorvastatin (LIPITOR) 20 MG tablet Take 20 mg by mouth daily 0 Active loratadine (CLARITIN) 10 MG tablet Take 10 mg by mouth daily 0 Active glimepiride (AMARYL) 2 MG tablet Take 2 mg by mouth daily 0 Active biotin 1000 MCG TABS tablet Take 1,000 mcg by mouth daily 0 Active omeprazole (PRILOSEC) [address] capsule Take 20 mg by mouth daily 0 Active tamsulosin (FLOMAX) 0.4 MG capsule Take 0.4 mg by mouth every evening 0 Active fluticasone (FLONASE) 50 MCG/ACT nasal spray [place] 1 spray into both nostrils daily 0 Active metolazone (ZAROXOLYN) 5 MG tablet Take 5 mg by mouth every other day 0 Active Acetaminophen (TYLENOL ARTHRITIS PAIN PO) Take by mouth 2 times daily 0 Active bumetanide (BUMEX) 2 MG tablet Take 2 mg by mouth daily 0 Active levothyroxine (SYNTHROID/LEVOTHROID ) 50 MCG tabletIndications: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 Take 1 tablet (50 mcg) by mouth daily 60 tablet 3 09/28/2022 Active metoprolol succinate ER (TOPROL XL) 50 MG 24 hr tabletIndications:Per sistent atrial fibrillation (H) Take 1 tablet (50 mg) by mouth daily 90 tablet 3 10/03/2022 Active nitroGLYcerin (NITROSTAT) 0.4 MG sublingual tabletIndications:Cor onary artery disease involving [place] coronary artery of [place] heart without angina pectoris Place 1 tablet (0.4 mg) under the tongue every 5 minutes as needed for chest pain 100 tablet 3 10/03/2022 Active amiodarone (PACERONE) 200 MG tabletIndications:Sheila tained VT (ventricular tachycardia) (H) Take 1 tablet (200 mg) by mouth daily 90 tablet 3 12/04/2022 Active apixaban ANTICOAGULANT (ELIQUIS) 5 MG tabletIndications:Per sistent atrial fibrillation (H) Take 1 tablet (5 mg) by mouth 2 times daily 180 tablet 3 08/09/2023 Active Active Problems Problem Noted Date Diagnosed Date Heart failure, unspecified H F chronicity, unspecified heart failure type 08/16/2022 Type 2 diabetes mellitus with complication 08/16 Acute respiratory failure with hypoxia and hyper capnia 08/16/2022 Malignant melanoma, unspecified site 08/16/2022 Stage 3a chronic kidney disease 08/16/2022 Morbid obesity 04/26/2021 Sustained VT (ventricular tachycardia) Localized edema 06/11/2018 Chest pain 03/07/2016 ACS (acute coronary syndrome) 02/02/2016 Other psoriasis 04/25/2004 Postsurgical aortocoronary bypass status 004 Mixed hyperlipidemia 04/25/2004 Herpes simplex virus (HSV) infection 04/25/2004 Overview: Problem list name updated by automated process. 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 [address] [place] [phone] Eve Santos, SIENNA from Last 3 Months Immunizations Name Administration [...] 0 (1 standard drink = 0.6 oz pur e alcohol) Adolescent Education Answer Date Record ed Getting School Help Needed Not on file 07/13 Sex and Gender Information Value Date Recorded Sex Assigned at Not on file Gender Identity Not on file Sexual Orientation Not on file Last Filed Vital Signs Vital Sign Reading Time Taken Comments Blood Pressure 104/66 09/28/2022 12:58 PM DEMAND INSPECTOR Pulse 64 09/28/2022 12:58 PM DEMAND INSPECTOR Temperature 36.6 ??C (97.9 ??F) 07/04/2021 12:03 PM C DT Respiratory Rate 16 07/04/2021 4:00 PM CDT Oxygen Saturation 97% 09/28/2022 12:58 PM DEMAND INSPECTOR Inhaled Oxygen Concentration - - Weight 111.1 kg (245 lb) 09/28/2022 12:58 PM DEMAND INSPECTOR Height 180.3 cm (5' 11) 09/28/2022 12:58 PM DEMAND INSPECTOR Body Mass Index 34.17 09/28/2022 12:58 PM DEMAND INSPECTOR Plan of Treatment Upcoming Encounters Date Type Department Care Team (Late st Contact Info) Description 12/19/2023 9:45 AM CDT Office Visit [facility] [address] [place] [address] [place] [phone] Trudi Grayson APRN PROSTHETIST [address] [place] [phone] Steven Canchola MD [address] [place] [address] 12/27/2023 Ancillary Procedure [facility] [address] [facility] [address] [place] [phone] Chris De Leon MD [address] [place] [address] Health Maintenance Due Date Last Done Comments ADVANCE CARE PLANNING 1938 ANNUAL REVIEW OF HM ORDERS 1938 DIABETIC FOOT EXAM 1938 EYE EXAM 1938 HF ACTION PLAN 1938 MICROALBUMIN 1938 RSV VACCINE ( & 60+) (1 - 1-dose 60+ series) 1998 FALL RISK ASSESSMENT 2003 ZOSTER IMMUNIZATION (2 of 3) 08/26/2014 07/01/2014 A1C 05/05/2016 02/03/2016, 12/2011, 02/01/2012 LIPID 02/02/2017 02/03/2016, 04/25/2004 MEDICARE ANNUAL WELLNESS VISIT 06/20/2022 06/20/2021 CBC 07/04/2022 07/04/2021, 12/2017, 05/31/2018, Additional history exists HEMOGLOBIN 07/04/2022 07/04/2021, 12/2017, 05/31/2018, Additional history exists BMP 02/08/2023 08/11/2022, 12/2020, 02/03/2019, Additional history exists ALT 08/11/2023 08/11/2022, 12/2017, 05/03/2018, Additional history exists PHQ-2 (once per calendar year) 2023 DTAP/TDAP/TD IMMUNIZATION (2 - Td or Tdap) 08/02/2031 08/02/2021, 06/07/2011, 06/07/2011, Additional history exists Pneumococcal Vaccine: 65+ Years Completed 10/18/2015, 05/29/2011, 07/07/2005, Additional history exists URINALYSIS Completed 10/23/2018, 07/04/2018 TSH W/FREE T4 REFLEX Completed 10/26/2022, 10/26/2022, 09/28/2022, Additional history exists INFLUENZA VACCINE Completed 07/27/2023, , 07/12/2022, Additional history exists COVID-19 Vaccine Completed 08/07/2023, 08/2022, 01/19/2022, Additional history exists HPV IMMUNIZATION Aged Out No longer e ligible based on patient's age to complete this topic IPV IMMUNIZATION Aged Out No longer e ligible based on patient's age to complete this topic MENINGITIS IMMUNIZATION Aged Out No l onger eligible based on patient's age to complete this topic RSV MONOCLONAL ANTIBODY Aged Out No l onger eligible based on patient's age to complete this topic Medical Devices Implanted Type Area Senior Staff Consultant Device Identifier Shelf Expiration Date Model / Serial / Lot Icd Resonate El Vr Df4 - [id number] Implanted:Qty : 1 on 07/04/2021 at [facility] ICD [employer] 09/09/2021 [id number] / [id number] / [id number] Lead Wires- Right [facility]rium-02/04/20 16 Implanted:03/2016 by Timothy Smith MD (Quantity not on file) Explanted:12/2020 (Quantity not on file) Lead Wires- Right [facility] [employer] 2088TC-52 / [id number] / Lead Wires- Right Ventricle-02/03 Implanted:03/2016 by Timothy Smith MD (Quantity not on file) Explanted:12/2020 (Quantity not on file) Lead Wires- Right Ventricle [employer] 2088TC-58 / [id number] / Lead [place] [employer] Df4 Af 59 Cm 0272 - [id number] Implanted:Qty : 1 on 07/04/2021 at [facility] Leads [employer] 04/07/2023 0272 / [id number] / [id number] Pacemaker-Dino Sci Implanted:03/2016 by Timothy Smith MD (Quantity not on file) Explanted:12/2020 (Quantity not on file) Pacemaker [employer] [address] [id number] / [id number] / Procedures Procedure Name Priority Date/Time Associated Diagnosis Comments INTERROGATION DEVICE EVAL REMOTE ICD UP TO 90 Routine 09/13/2023 11:52 AM DEMAND INSPECTOR Sustained VT (ventricular tachycardia) (H) ICD (implantable cardioverter-defib 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 from Last 3 Months Results * INTERROGATION DEVICE EVAL REMOTE ICD UP TO 90 (09/13/2023 11:52 AM DEMAND INSPECTOR) Date Time Interrogation Session [id number] [employer] Implantable Pulse Generator Senior Staff Consultant [employer] Implantable Pulse Generator Model D432 RESONATE EL ICD [employer] Implantable Pulse Generator Serial Number [id number] [employer] Type Interrogation Session Remote Scheduled [facility] Clinic Name [facility] [employer] Implantable Pulse Generator Type Defibrillator [employer] Implantable Pulse Generator Implant Date 20210704 [employer] Implantable Lead Senior Staff Consultant [employer] Implantable Lead Model 0272 Endotak [place] 4-Site S [employer] Implantable Lead Serial Number [id number] [employer] Implantable Lead Implant Date 20210704 [employer] Implantable Lead Polarity Type Bipolar Lead [employer] Implantable Lead Location Detail 1 UNKNOWN [employer] Implantable Lead Location Right Ventricle [employer] Implantable Lead Connection Status Connected [employer] Brandon Setting Mode (NBG Code) VVIR [employer] Brandon Setting Lower Rate Limit 50 {beats}/ min [employer] Brandon Setting Maximum Sensor Rate 130 {beats}/ min [employer] Lead Channel Setting Sensing Polarity Bipolar [employer] Lead Channel Setting Sensing Sensitivity 0.6 mV [employer] Lead Channel Setting Sensing Adaptation Mode Adaptive [employer] Lead Channel Setting Pacing Polarity Bipolar [employer] Lead Channel Setting Pacing Pulse Width 0.4 ms [employer] Lead Channel Setting Pacing Amplitude 2.4 V [employer] Lead Channel Setting Pacing Capture Mode Adaptive [employer] Zone Setting Type Category VF [employer] Zone Setting Vendor Type Category VF [employer] Zone Setting Status Active [employer] Zone Setting Detection Interval 273 ms [employer] Zone Setting Type Category VT [employer] Zone Setting Vendor Type Category VT [employer] Zone Setting Status Active [employer] Zone Setting Detection Interval 353 ms [employer] Zone Setting Type Category VT [employer] Zone Setting Vendor Type Category VT-1 [employer] Zone Setting Status Monitor [employer] Zone Setting Detection Interval 400 ms [employer] Lead Channel Impedance Value 473 ohm [employer] Lead Channel Pacing Threshold Amplitude 1.2 V [employer] Lead Channel Pacing Threshold Pulse Width 0.4 ms [employer] Battery Date Time of Measurements [employer] Battery Status Beginning of Service [employer] Battery Remaining Longevity 150 mo [employer] Battery Remaining Percentage 100 % [employer] Capacitor Charge Type Reformation [employer] Capacitor Last Charge Date Time [id number] [employer] Capacitor Charge Time 8.9 s [employer] Capacitor Charge Type Shock [employer] Capacitor Last Charge Date Time [employer] Capacitor Charge Time 6.8 s [employer] Capacitor Charge Energy 41 J [employer] Brandon Statistic Date Time Start [employer] Brandon Statistic Date Time End [employer] Brandon Statistic RV Percent Paced 17 % [employer] Therapy Statistic Recent Shocks Delivered 0 [employer] Therapy Statistic Recent Shocks Aborted 0 [employer] Therapy Statistic Recent ATP Delivered 0 [employer] Therapy Statistic Recent Date Time Start [employer] Therapy Statistic Recent Date Time End [employer] Therapy Statistic Total Shocks Delivered 6 [employer] Therapy Statistic Total Shocks Aborted 0 [employer] Therapy Statistic Total ATP Delivered 34 [employer] Therapy Statistic Total Date Time End [id number] [employer] Episode Statistic Recent Count 0 [employer] Episode Statistic Type Category Other [employer] Episode Statistic Recent Count 0 [employer] Episode Statistic Type Category VT [employer] Episode Statistic Vendor Type Category NSVT [employer] Episode Statistic Recent Count 0 [employer]IC Episode Statistic Type Category VT [employer] Episode Statistic Vendor Type Category VT [employer] Episode Statistic Recent Count 0 [employer] Episode Statistic Type Category VT [employer] Episode Statistic Vendor Type Category VT-1 [employer] Episode Statistic Recent Date Time Start [id number] [employer] Episode Statistic Recent Date Time End [id number] [employer] Episode Statistic Recent Date Time Start [id number] [employer] Episode Statistic Recent Date Time End [id number] [employer] Episode Statistic Recent Date Time Start [id number] [employer] Episode Statistic Recent Date Time End [id number] [employer] Episode Statistic Recent Date Time Start [id number] [employer] Episode Statistic Recent Date Time End [id number] [employer] Episode Identifier [id number] [employer] Episode Type Category Periodic EGM [employer] Episode Date Time [id number] [employer] Episode Identifier [id number] [employer] Episode Type Category Other [employer] Episode Date Time [id number] [employer] Anatomical Region Laterality Modality Other 09/13/2023 12:4 1 AM DEMAND INSPECTOR Narrative 09/25/2023 10:41 AM DEMAND INSPECTOR [employer] Resonate (S) ICD Remote Device Check MANAGER RN CASE: 17 % ?? Mode: VVIR 50-130 ?? Presenting Rhythm: VS with occasional MANAGER RN CASE ?? Historical Underlying Rhythm: AF 60-80's bpm (08/16/2022) Heart Rate: adequate variability ?? Sensing: WNL ?? Pacing Threshold: WNL ?? Impedance: WNL ?? Battery Status: 12.5 yrs estimated longevity, 8.9 second charge time ?? Atrial Arrhythmia: chronic AF, on eliquis ?? Ventricular Arrhythmia: none. On amiodarone for VT ?? ATP: 0 ?? Shocks: 0 ?? Other: Heart Logic 0 Tachy Therapy History: - Resonate (2020-present): implanted for secondary prevention ---- 12/2021: 14 VT episodes with ATP and shocks ---- Jul and Aug 2021: 4 episodes of VT with ATP - [facility] (5308-8356): sustained VT, prompted upgrade to ICD Care Plan: meets all criteria for q2yr thresholds, will be due 08/2024. Scheduled remote in 3 months. ??OV with Dr. Canchola on 12/19/2023. Sent results and plan via [employer]. EC RN I have reviewed and interpreted the device interrogation, settings, programming and nurse's summary. The device is functioning within normal device parameters. I agree with the current findings, assessment and plan. Chris Hinds MD [facility] ORDERABLES from Last 3 Months Advance Directives For more information, please contact: [phone] Latest Code Status on File Code Status Date Activated Date Inactivated Comments Full Code 02/04/2016 9:52 AM 07/04/2021 11:49 AM Code Status History Code Status Date Activated Date Inactivated Comments Full Code 02/02/2016 9:20 PM 02/04/2016 9:52 AM Full Code 02/01/2012 2:37 PM 02/04/2012 6:16 PM Care Teams Medical Cost Consultant Relationship Specialty Start Date End Date Graham Licona MD [facility] [address] [place] [address] PCP - General Family Medicine 06/30/21 Trudi Grayson APRN PROSTHETIST [address] [id number] Assigned Heart and Vascular Provider 10/07/22 Steven Canchola MD [address] [place] [id number] Cardiovascular Disease 07/12/23
--- OUTSIDE RECORDS SUMMARY | 2023-10-12 09:50 | XMS_ITS | Encounter Summary ---
Author Name Unknown Organization [place] Address [address] [place] [address] Care Team Providers Care Nuclear Medicine Medical Director Name Role Phone Graham Licona MD Primary Care Provider [phone] Trudi Grayson APRN RICE FIELD WORKER Unavailable [phone] Steven Canchola MD Unavailable + Encounter Details Date Type Department Care Team (Late st Contact Info) Description 08/07/2023 Telephone [facility] [address] [facility] [address] [place] [phone] Eve Santos, SIENNA Social History Tobacco Use Types Packs/Day Years [...] on file Sexual Orientation Not on file documented as of this encounter Miscellaneous Notes * Telephone Encounter - Trudi Grayson APRN CNP - 08/07/2023 11:52 AM OUTBOUND SALES REPRESENTATIVE Reviewed results of heart logic. In the setting of no heart failure symptoms, shortness of breath, weight gain, or significant edema. No new recommendations at this time. Continue to monitor symptoms closely. Thanks Trudi OUND SALES REPRESENTATIVE * Telephone Encounter - Eev Santos RN - 08/07/2023 10:21 AM CST Images from the original note were not included. Alert received from patient's ICD for, HeartLogic??? Heart Failure Index remains above the alert recovery threshold of 6. HeartLogic index has been steadily increasing since mid-July and now measuring at 27. Spoke with patient. States that his weight is down and he has not noticed any new/worsening SOB. Hehas noticed some swelling in his feet but states he got a steroid shot a week ago and believed the fluid retention is due to that. He has not missed any doses of his bumex (2mg daily). States that he needs to use the bathroom every 30 minutes so he does not want to increase his dose. He knows to monitor his symptoms and call the clinic with any new/worsening symptoms that might indicate fluid retention. Will route an update to Trudi Grayson. GG RN OUND SALES REPRESENTATIVE documented in this encounter Plan of Treatment Upcoming Encounters Date Type Department Care Team (Late st Contact Info) Description 12/19/2023 9:45 AM CDT Office Visit [facility] [address] [facility] [address] [place] [phone] Trudi Grayson APRN RICE FIELD WORKER [address] [place] [id number] Steven Canchola MD [address] [place] [id number] 12/27/2023 Ancillary Procedure [facility] [address] [facility] [address] [place] [phone] Chris De Leon MD [address] [place] [id number] documented as of this encounter Visit Diagnoses Not on filedocumented in this encounter Care Teams Nuclear Medicine Medical Director Relationship Specialty Start Date End Date Graham Licona MD [facility] [address] [place] [address] PCP - General Family Medicine 06/30/21 Trudi Grayson APRN RICE FIELD WORKER [address] [id number] Assigned Heart and Vascular Provider 10/07/22 Steven Canchola MD [address] [place] [id number] Cardiovascular Disease 07/12/23 documented as of this encounter
--- OUTSIDE RECORDS SUMMARY | 2023-10-12 09:50 | XMS_ITS ---
Author Name Unknown Organization [place] Address [facility] [place] [address] Care Team Providers Care Bead Forming Machine Operator Name Role Phone Graham Licona MD Primary Care Provider [phone] Trudi Grayson APRN YOUTH COORDINATOR Unavailable [phone] Steven Canchola MD Unavailable + Active Problems Problem Noted Date Diagnosed Date Heart failure, unspecified H F chronicity, unspecified heart failure type 08/16/2022 Type 2 diabetes mellitus with complication 08/16 Acute respiratory failure with hypoxia and hyper capnia 08/16/2022 Malignant melanoma, unspecified site 08/16/2022 Stage 3a chronic kidney disease 08/16/2022 Morbid obesity 04/26/2021 Sustained VT (ventricular tachycardia) 1 Localized edema 06/11/2018 Chest pain 03/07/2016 ACS [...] No past plan information found. Radiation Treatments * No radiation treatments are documented for this patient in [facility]. Treatments may have been administered in another system. Lifetime Dose Tracking * Chemical Lifetime Dose Automatic Entry Manual Entr y Air Kerma 64 mGy 0 mGy 64 mGy Margie DAP 8,803 mGy-cm2 0 mGy-cm2 8,803 mGy-cm2
--- OUTSIDE RECORDS SUMMARY | 2023-10-12 09:50 | XMS_ITS | Referral Summary ---
Author Name Unknown Organization [place] Address [address] 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 08/08/2023 Telephone [facility] [address] [place] [address] Ann Leos, SIENNA Direct Oral Anticoagulant 08/07/2023 Telephone [facility] [address] [place] [phone] Eve Santos RN from Last 3 Months Allergies Active Allergy Reactions Criticality Noted Date [...] Active fluticasone (FLONASE) 50 MCG/ACT nasal spray [place] 1 spray into both nostrils daily 0 [...] MG sublingual tabletIndications:Cor onary artery disease involving aniak coronary artery of aniak heart without angina pectoris Place 1 tablet [...] flutter Sleep apnea Coronary artery disease A-fib Immunizations Name Administration Dates Next Due Influenza (IIV3) PF 08/06/2004 Social History Tobacco Use Types Packs/Day Years [...] Comments Blood Pressure 104/66 09/28/2022 12:58 PM CLINICAL TEAM LEAD Pulse 64 09/28/2022 12:58 PM CLINICAL TEAM LEAD Temperature 36.6 ??C (97.9 ??F) 07/04/2021 12:03 PM C DT Respiratory Rate 16 07/04/2021 4:00 PM CDT Oxygen Saturation 97% 09/28/2022 12:58 PM CLINICAL TEAM LEAD Inhaled Oxygen Concentration - - Weight 111.1 kg (245 lb) 09/28/2022 12:58 PM CLINICAL TEAM LEAD Height 180.3 cm (5' 11) 09/28/2022 12:58 PM CLINICAL TEAM LEAD Body Mass Index 34.17 09/28/2022 12:58 PM CLINICAL TEAM LEAD Plan of Treatment Upcoming Encounters Date Type Department Care Team (Late st Contact Info) Description 12/19/2023 9:45 AM CDT Office Visit [facility] [address] [place] [address] Trudi Grayson, ENGINEERING TECHNICIAN PARKING RESEARCH SUPPORT SPECIALIST [address] [id number] Steven Canchola MD [address] [place] [address] 12/27/2023 Ancillary Procedure [facility] [address] [place] [address] Chris De Leon MD [address] [place] [id number] Medical Devices Implanted Type Area Traffic Control Operator Device Identifier Shelf Expiration Date Model / Serial / Lot Icd Resonate El Vr Df4 - [id number] Implanted:Qty : 1 on 07/04/2021 at [facility] ICD [employer] 09/09/2021 D432 / [id number] / [id number] Lead Wires- Right Atrium-02/04/20 16 Implanted:03/2016 by Timothy Smith MD (Quantity not on file) Explanted:12/2020 (Quantity not on file) Lead Wires- Right Atrium [employer] 2087TC-52 / [id number] / Lead Wires- Right Ventricle-02/03 Implanted:03/2016 by Timothy Smith MD (Quantity not on file) Explanted:12/2020 (Quantity not on file) Lead Wires- Right Ventricle [employer] 8TC-58 / [id number] / Lead [place] [employer]ak Df4 Af 59 Cm 0272 - [id number] Implanted:Qty : 1 on 07/04/2021 at [facility] Leads [employer] 04/07/2023 0272 / [id number] / [id number] Pacemaker-Dino Sci Implanted:03/2016 by Timothy Smith MD (Quantity not on file) Explanted:12/2020 (Quantity not on file) Pacemaker [employer] [address] L121 / [id number] / Procedures Procedure Name Priority Date/Time Associated Diagnosis Comments INTERROGATION DEVICE EVAL REMOTE ICD UP TO 90 Routine 09/13/2023 11:52 AM CLINICAL TEAM LEAD Sustained VT (ventricular tachycardia) (H) ICD (implantable cardioverter-defib 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 from Last 3 Months Results * INTERROGATION DEVICE EVAL REMOTE ICD UP TO 90 (09/13/2023 11:52 AM CLINICAL TEAM LEAD) Date Time Interrogation Session [id number] [employer] Implantable Pulse Generator Traffic Control Operator [employer] Implantable Pulse Generator Model D432 RESONATE EL ICD [employer] Implantable Pulse Generator Serial Number [id number] [employer] Type Interrogation Session Remote Scheduled [employer] Clinic Name [place] [employer] Implantable Pulse Generator Type Defibrillator [employer] Implantable Pulse Generator Implant Date 20210704 [employer] Implantable Lead Traffic Control Operator [employer] Implantable Lead Model 0272 Endotak [place] 4-Site S [employer] Implantable Lead Serial Number [id number] [employer] Implantable Lead Implant Date 20210704 MEDTRONIC [...] ms [employer]IC Battery Date Time of Measurements [id number] [employer] Battery Status Beginning of Service [employer] Battery Remaining Longevity 150 mo [employer] Battery Remaining Percentage 100 % [employer] Capacitor Charge Type Reformation [employer]IC Capacitor Last Charge Date Time [id number] [employer] Capacitor Charge Time 8.9 s MEDTR[employer]IC Capacitor Charge Type Shock [employer] Capacitor Last Charge Date Time [id number] [employer] Capacitor Charge Time 6.8 s MEDTRONIC Capacitor Charge Energy 41 J [employer]TRONIC Brandon Statistic Date Time Start [id number] [employer]IC Brandon Statistic Date Time End MEDTRONIC [...] MEDTRONIC Therapy Statistic Total Date Time End [id number] [employer]IC Episode Statistic Recent Count 0 MEDTRONIC [...] MEDTRONIC Episode Statistic Recent Date Time Start MEDTRONIC Episode Statistic Recent Date Time End MEDTRONIC Episode Statistic Recent Date Time Start [id number] MEDTRONIC Episode Statistic Recent Date Time End [id number] [employer] Episode Statistic Recent Date Time Start [id number] [employer]TRONIC Episode Statistic Recent Date Time End [id number] [employer]TRONIC Episode Statistic Recent Date Time Start [id number] MEDTRONIC Episode Statistic Recent Date Time End MEDTRONIC Episode Identifier [id number] [employer] Episode Type Category Periodic EGM [employer]IC Episode Date Time [id number] [employer]IC Episode Identifier [id number] [employer] Episode Type Category Other [employer]ONIC Episode Date Time [id number] [employer] Anatomical Region Laterality Modality Other 09/13/2023 12:4 1 AM CLINICAL TEAM LEAD Narrative 09/25/2023 10:41 AM CLINICAL TEAM LEAD [employer] Resonate (S) ICD Remote Device Check LEAD WEB DEVELOPER: 17 % ?? Mode: VVIR 50-130 ?? Presenting Rhythm: VS with occasional LEAD WEB DEVELOPER ?? Historical Underlying Rhythm: AF 60-80's bpm [...] of VT with ATP - [facility] (4100-7023): sustained VT, prompted upgrade to ICD Care Plan: meets all criteria for q2yr thresholds, will be due 08/2024. Scheduled remote in 3 months. ??OV with Dr. Canchola on 12/19/2023. Sent results and plan via [employer]. EC RN I have reviewed and interpreted the device interrogation, settings, programming and nurse's summary. The device is functioning within normal device parameters. I agree with the current findings, assessment and plan. Chris Hinds MD CV CARDIAC SERVICES ORDERABLES from Last 3 Months Advance Directives For more information, please contact: [phone] Latest Code Status on File Code Status Date Activated Date Inactivated Comments Full Code 02/04/2016 9:52 AM 07/04/2021 11:49 AM Code Status History Code Status Date Activated Date Inactivated Comments Full Code 02/02/2016 9:20 PM 02/04/2016 9:52 AM Full Code 02/01/2012 2:37 PM 02/04/2012 6:16 PM Care Teams Purchasing Officer Relationship Specialty Start Date End Date Graham Licona MD [facility] [address] [place] [address] PCP - General Family Medicine 06/30/21 Trudi Grayson APRN RESEARCH SUPPORT SPECIALIST [address] [id number] Assigned Heart and Vascular Provider 10/07/22 Steven Canchola MD [address] [place] [id number] Cardiovascular Disease 07/12/23
--- OUTSIDE RECORDS SUMMARY | 2023-10-12 09:50 | XMS_ITS | Encounter Summary ---
Author Name Unknown Organization [place] Address [address] [place] [address] Care Team Providers Care Compressor Station Engineer Name Role Phone Graham Licona MD Primary Care Provider [phone] Trudi Grayson APRN PASTRY DECORATOR Unavailable [phone] Steven Canchola MD Unavailable + Reason for Visit * CV Testing (Routine) - Pending Review Specialty Diagnoses / Procedures Referred By Contac t Referred To Contact Diagnoses Sustained VT (ventricular tachycardia) (H) ICD (implantable cardioverter-defib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 Procedures Cardiac Device Check - Remote Chris De Leon MD [address] [place] [address] Referral ID Status Reason Start Date Expiration Date V isits Requested Visits Authorized [id number] Pending Review 06/11/2023 06/10/2024 250 250 Encounter Details Date Type Department Care Team (Latest Contact Info) Description 09/13/2023 Ancillary Procedure [facility] [address] [place] [phone] Chris De Leon MD [address] [place] [id number] Sustained VT (ventricular tachycardia) (H); ICD (implantable cardioverter-defibri llator) in place Social History Tobacco Use Types Packs/Day Years [...] Description 12/19/2023 9:45 AM CDT Office Visit [facility] [address] [place] [phone] Trudi Grayson APRN PASTRY DECORATOR [address] [place] [address] Steven Canchola MD [address] [place] [id number] 12/27/2023 Ancillary Procedure [facility] [address] [place] [phone] Chris De Leon MD [address] [place] [id number] documented as of this encounter Procedures Procedure Name Priority Date/Time Associated Diagnosis Comments INTERROGATION DEVICE EVAL REMOTE ICD UP TO 90 Routine 09/13/2023 11:52 AM CARGO INSPECTOR Sustained VT (ventricular tachycardia) (H) ICD (implantable cardioverter-defib 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 documented in this encounter Results * INTERROGATION DEVICE EVAL REMOTE ICD UP TO 90 (09/13/2023 11:52 AM CARGO INSPECTOR) Date Time Interrogation Session [id number] [employer] Implantable Pulse Generator [employer] Former Brace [employer] Implantable Pulse Generator Model D432 RESONATE EL ICD [employer]IC Implantable Pulse Generator Serial Number [id number] [employer] Type Interrogation Session Remote Scheduled [facility] Clinic Name [facility] [employer] Implantable Pulse Generator Type Defibrillator [employer]IC Implantable Pulse Generator Implant Date 20210704 MEDTR[employer]IC Implantable Lead [employer] Former Brace End [employer]IC Implantable Lead Model 0272 Endotak [place] 4-Site S [employer]IC Implantable Lead Serial Number [id number] [employer]IC Implantable Lead Implant Date 20210704 MEDTRONIC [...] Reformation MEDTRONIC Capacitor Last Charge Date Time [id number] MEDTRONIC Capacitor Charge Time 8.9 s MEDTRONIC Capacitor Charge Type Shock MEDTR[employer]IC Capacitor Last Charge Date Time [id number] MEDTR[employer]IC Capacitor Charge Time 6.8 s MEDTRONIC [...] MEDTRONIC Therapy Statistic Total Date Time End MEDTRONIC Episode Statistic Recent Count 0 MEDTRONIC [...] MEDTRONIC Episode Statistic Recent Date Time End [id number] MEDTRONIC Episode Statistic Recent Date Time Start MEDTRONIC Episode Statistic Recent Date Time End MEDTRONIC Episode Statistic Recent Date Time Start MEDTRONIC Episode Statistic Recent Date Time End MEDTRONIC Episode Identifier [id number] MEDTRONIC Episode Type Category Periodic EGM MEDTRONIC Episode Date Time [id number] MEDTRONIC Episode Identifier [id number] [employer]TRONIC Episode Type Category Other MEDTRONIC Episode Date Time [id number] [employer]IC Anatomical Region Laterality Modality Other 09/13/2023 12:4 1 AM CARGO INSPECTOR Narrative 09/25/2023 10:41 AM CARGO INSPECTOR [employer] Resonate (S) ICD Remote Device Check STUNT WOMAN: 17 % ?? Mode: VVIR 50-130 ?? Presenting Rhythm: VS with occasional STUNT WOMAN ?? Historical Underlying Rhythm: AF 60-80's bpm (08/16/2022) Heart Rate: adequate variability ?? Sensing: WNL ?? Pacing Threshold: WNL ?? Impedance: WNL ?? Battery Status: 12.5 yrs estimated longevity, 8.9 second charge time ?? Atrial Arrhythmia: chronic AF, on eliquis ?? Ventricular Arrhythmia: none. On amiodarone for VT ?? ATP: 0 ?? Shocks: 0 ?? Other: Heart Logic 0 [facility]achy [facility] for secondary prevention ---- 12/2021: 14 VT episodes with ATP and shocks ---- Jul and Aug 2021: 4 episodes of VT with ATP - [facility] (4281-9146): sustained VT, prompted upgrade to ICD Care Plan: meets all criteria for q2yr thresholds, will be due 08/2024. Scheduled remote in 3 months. ??OV with Dr. Canchola on 12/19/2023. Sent results and plan via [employer]. EC RN I have reviewed and interpreted the device interrogation, settings, programming and nurse's summary. The device is functioning within normal device parameters. I agree with the current findings, assessment and plan. Chris Hinds MD CV CARDIAC SERVICES ORDERABLES documented in this encounter Visit Diagnoses Diagnosis Sustained VT (ventricular tachycardia) (H) Paroxysmal ventricular tachycardia ICD (implantable cardioverter-defib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 documented in this encounter Care Teams Compressor Station Engineer Relationship Specialty Start Date End Date Graham Licona MD [facility] [address] [place] [address] PCP - General Family Medicine 06/30/21 Trudi Grayson APRN PASTRY DECORATOR [address] [place] [id number] Assigned Heart and Vascular Provider 10/07/22 Steven Canchola MD [address] [place] [address] Cardiovascular Disease 07/12/23 documented as of this encounter
--- OUTSIDE RECORDS SUMMARY | 2023-10-12 09:50 | XMS_ITS | Clinical Summary ---
Author Name Unknown Organization Number [facility] [employer] [facility] Address [place], [place] [address] Care Team Providers Care Supervisor Evaporator Name Role Phone Unavailable Primary Care Provider Unavailabl e Allergies No known active allergies Medications Medication Sig Dispensed Refills Start Date End Date Status blood-glucose meter Dispense glucose meter, test strips and lancets covered by the patient insurance. Test 3 times per day. 1 Device 0 06/13/2013 Active lancets Dispense lancets covered by pt ins. 250.00 NIDDM type II - Test 2 times/day. Reason: High A1C tests 2 x daily 200 Each 1 11/02/2014 Active nitroglycerin (NITROSTAT) 0.[address] 0.4 mg under the tongue every 5 minutes if needed for Chest Pain. 0 Active biotin 5,000 mcg TbDi Take 5,000 mcg by mouth once daily. 0 12/18/2018 Active tamsulosin (FLOMAX) 0.4 mg capsule Take 0.4 mg by mouth once daily after a meal. 0 07/11/2019 Active omeprazole (PRILOSEC) 20 mg Delayed-Release capsule Take 20 mg by mouth 2 times daily before meals. 0 06/06/2021 Active metFORMIN (GLUCOPHAGE) 500 mg tabletIndications:Cont rolled type 2 diabetes mellitus with complication, without long-term current use of insulin (HC) Take 2 Tablets (1,000 mg) by mouth 2 times daily with meals. 360 Tablet 3 06/20/2021 Active furosemide (LASIX) 40 mg tabletIndications:Bila teral lower extremity edema Take 1 Tablet (40 mg) by mouth every morning. 90 Tablet 2 06/20/2021 Active glimepiride (AMARYL) 2 mg tabletIndications:Cont rolled type 2 diabetes mellitus with complication, without long-term current use of insulin (HC) TAKE 1 TABLET TWICE A DAY 180 Tablet 3 06/20/2021 Active fenofibrate 160 mg tabletIndications:Hype rlipidemia, unspecified hyperlipidemia type TAKE ONE TABLET BY MOUTH EVERY DAY WITH A MEAL 90 Tablet 0 11/08/2021 Active blood sugar diagnostic (Contour Next Test Strips) stripIndications:Contr olled type 2 diabetes mellitus with complication, without long-term current use of insulin (HC) Dispense item covered by pt ins. 2 x daily Dispense item covered by pt ins. 200 Each 3 12/30/2021 Active amiodarone (CORDARONE) 200 mg tablet Take 200 mg by mouth once daily. 0 Active metOLazone (ZAROXOLYN) 2.5 mg tablet Take 2.5-5 mg by mouth once daily. Alternate 2.5 mg and 5 mg every other day 0 Active apixaban (ELIQUIS) 2.5 mg tabletIndications:prev ent thromboembolism in chronic atrial fibrillation Take 1 Tablet (2.5 mg) by mouth 2 times daily. 60 Tablet 2 02/26/2022 Active oxyCODONE (ROXICODONE) 5 mg immediate release tabletIndications:Lumb ar radicular pain Take 0.5 Tablets (2.5 mg) by mouth every 6 hours if needed for Pain. 10 Tablet 0 02/26/2022 Active metoprolol succinate (TOPROL XL) 25 mg Sustained-Release tabletIndications:Typi franca atrial flutter (HC) Take 0.5 Tablets (12.5 mg) by mouth once daily. 30 Tablet 2 03/02/2022 Active atorvastatin (LIPITOR) 20 mg tabletIndications:Hype rlipidemia, unspecified hyperlipidemia type TAKE ONE TABLET BY MOUTH EVERY DAY 30 Tablet 0 04/18/2022 Active acyclovir (ZOVIRAX) 400 mg tabletIndications:Recu rrent cold sores TAKE ONE TABLET BY MOUTH THREE TIMES A DAY NEEDED FOR COLD SORES 21 Tablet 0 07/06/2022 Active Active Problems Problem Noted Date Diagnosed Date Acute respiratory failure with hypoxia and hyper capnia 02/22/2022 Hemorrhagic shock 02/22/2022 Coronary artery disease invo lving mary's igloo coronary artery of mary[place] igloo heart with angina pectoris 06/20/2021 Stage 3a chronic kidney disease 06/20/2021 Sleep apnea, unspecified 09/12/2020 Heart failure 11/03/2019 Cataract of right eye 09/18/2019 Calculus of ureter 10/09/2018 Type 2 diabetes mellitus wit hout complication, without long-term current use of insulin 09/02/2018 Abnormal kidney function 05/06/2018 Morbid obesity with BMI of 45.0-49.9, adult 11/30 Chronic atrial fibrillation 03/07/2017 Malignant melanoma (HC) - ocular 10/12/2016 Coronary artery disease invo lving mary's igloo coronary artery of mary[place] igloo heart without angina pectoris 02/11/2016 Lumbar foraminal stenosis 08/31/2015 Lumbar radicular pain 08/31/2015 Anticoagulation monitoring, INR range 2-3 2011 Atrial flutter 02/05/2012 Other and unspecified hyperlipidemia 10/18/2011 Low back pain 02/15/2010 HTN (hypertension) 02/10/2010 Resolved Problems Problem Noted Date Diagnosed Date Resolved Date Controlled type 2 diabetes ryan beverly with complication, without long-term current use of insulin 10/11/2018 06/20/2021 Controlled type 2 diabetes ryan beverly with complication, without long-term current use of insulin 01/13/2017 09/02/2018 Encounters Date Type Department Care Team Description 09/19/2023 Telephone [facility] [address] [place] [address] Pcp, No Abstract (Resolved Primary Care RN Care Management episode) from Last 3 Months Immunizations Name Administration Dates Next Due COVID-19 vaccine ([employer] N[employer] Edge Wheels 30mcg/0.3mL) PF MDIra 12/04/2020,11/13/2020 Influenza Virus, Unspecified 08/06/2004, 07/23/1997,08/05/1996,1993,08/05/1993,08/11/1992 Influenza, High-dose Inactivated 019,07/16/2018,08/07/2016,2014,08/05/2014 Influenza, IIV3 (Age 6-35 mos) 08/21/2013,2010 Influenza, IIV3 (Age >=3 years) 07/28/20 11,07/26/2010,06/14/2009,2007,07/12/2007,07/19/2006,07/07/2005,1 10/06/2003,08/05/2003,08/14/2002, 001,08/02/2000 Influenza, Inactivated IIV3 (Age 65+ Years) Preserv Free 06/24/2020,08/15/2019,07/17/2017 Pneumococcal Poly,23-Valent (Pneumovax) 05/29/2011,07/07/2005,10/10/2002 Pneumococcal conj 13-Valent (Prevnar 13) 10/18/2015 Td (Age >=7 Years) 09/29/2002,03/02/1992 Td, Preservative Free (age > = 7 Years) 06/07/2011 Zoster (Zostavax-ZVL, live) 07/01/2014 Family History Medical [...] Smoking Tobacco: Never Smokeless Tobacco: Never Tobacco Cessation:Counseling Given: Yes Alcohol Use Standard Drinks/Week Comments No 0 (1 standard drink = 0.6 oz pur e alcohol) PHQ-2 Answer Date Recorded PHQ-2 TOTAL SCORE 0 06/20/2021 Social Connections Answer Date Recorded Frequency of Communication with Friends and Fami ly Not on file 09/21/2021 Financial Resource Strain Answer Date R ecorded Difficulty of Paying Living Expenses Not on file 09/21/2021 Difficulty of Paying Living Expenses Not on file 09/21/2021 Sex and Gender Information Value Date Recorded Sex Assigned at Not on file Gender Identity Not on file Sexual Orientation Not on file Obstetrics History Last Filed Vital Signs Vital Sign Reading Time Taken Comments Blood Pressure 134/58 03/02/2022 8:39 AM CDT Pulse 83 03/02/2022 8:39 AM CDT Temperature 36.3 ??C (97.3 ??F) 03/02/2022 8:39 AM CD T Respiratory Rate 18 03/02/2022 8:39 AM CDT Oxygen Saturation 92% 03/02/2022 8:39 AM CDT Inhaled Oxygen Concentration - - Weight 126.1 kg (278 lb) 03/01/2022 10:00 AM CDT Height 175.3 cm (5' 9) 02/21/2022 4:40 PM CDT Body Mass Index 41.05 02/21/2022 4:40 PM CDT Plan of Treatment Health Maintenance Due Date Last Done Comments Tdap 1951 Zoster (shingles) series for age 50+ (2 of 3) 08/26/2014 07/01/2014 Tetanus booster 06/07/2021 06/07/2011, 03/2011, 09/29/2002, Additional history exists BMI (ht and wt on same day) for age 18+ 06/20/2022 06/20/2021, 09/27/2020, 06/24/2020, Additional history exists Medicare Wellness for age 65+ 06/20/2022 06/20/2021, 11/03/2019 Depression screening for age 12+ 06/21/2022 06/21/2021, 06/20/2021, 11/03/2019, Additional history exists COVID-19 vaccine series (2022- season) 2023 01/19/2022, 07/14/2021, 12/04/2020, Additional history exists Influenza for age 65+ 06/01/2023 06/24/2020 , 08/15/2019, 07/03/2019, Additional history exists Pneumococcal series for age 65+ Completed 10/18/2015, 05/29/2011, 07/07/2005, Additional history exists Advance Directives Latest Code Status on File Code Status Date Activated Date Inactivated Comments Full Code 02/22/2022 2:53 PM 03/02/2022 1:31 PM Question Answer Comments Code Status Discussion: Reviewed Preferences Code Status History Code Status Date Activated Date Inactivated Comments Full Code 02/21/2022 4:37 PM 02/22/2022 2:53 PM Question Answer Comments Code Status Discussion: Unable to Assess Preferences, Provider to review later
--- OUTSIDE RECORDS SUMMARY | 2023-10-12 09:50 | XMS_ITS | Encounter Summary ---
Author Name Unknown Organization [place] Address [address] [facility] [place] [address] Care Team Providers Care Loom Fixer Apprentice Name Role Phone Graham Licona MD Primary Care Provider [phone] Trudi Grayson APRN APPLICATION DEVELOPMENT TEAM LEAD Unavailable [phone] Steven Canchola MD Unavailable + Reason for Visit * Reason Onset Date Comments Direct Oral Anticoagulant 08/08/2023 Encounter Details Date Type Department Care Team (Late st Contact Info) Description 08/08/2023 Telephone [facility] [address] [place] [address] Ann Leos RN Direct Oral Anticoagulant Social History Tobacco Use Types Packs/Day Years [...] encounter Miscellaneous Notes * Telephone Encounter - Juvenal Burnham RN - 08/09/2023 1:16 PM PERCHER Robbyis ordered per Trudi Ruffin guidelines. Patient requests [facility] mail out services. Juvenal Burnham RN August 09, 2023 1:17 PM HER * Telephone Encounter - Trudi Graysno APRN CNP - 08/09/2023 11:40 AM PERCHER Thanks for the update. Can we make sure we sent a prescription so he does not run out. Thanks Trudi HER * Telephone Encounter - Juvenal Burnham RN - 08/09/2023 8:19 AM PERCHER Patient states he has not been taking Eliquis because he feels like I don't need it. RN explainedthat due to his diagnosis of atrial fibrillation, being non compliant with anticoagulation medications could lead to adverse effects such as DVT, PE or strokes. Patient stated that he would start up on Eliquis again as he is allergic to warfarin. No documentation made about this allergy. When RN stated that, he said this was many years ago. RN asked where she could send his prescription to, he said I have some left, but I don't know how many. When RN asked about how much so we can double check on sending him updated refills as the last one was in October of this year, he states I will reach out when I need more. Direct RN line given so we may track if he is asking for future refills. Juvenal Burnham RN August 09, 2023 8:23 AM HER * Telephone Encounter - Trudi Grayson APRN CNP - 08/08/2023 5:34 PM PERCHER Please see message below Patient has not been compliant with anticoagulation (refills). Could we please reach out to patientand see if he is faithfully taking Eliquis? If cost of Eliquis is prohibitive, consider switching to Coumadin if agreeable. Thanks Trudi HER * Telephone Encounter - Ann Leos RN - 08/08/2023 12:19 PM CST ANTICOAGULATION DIRECT ORAL ANTICOAGULANT MONITORING SUBJECTIVE [facility] is evaluating Haris B Rezac's Apixaban (Eliquis) as part of its Anticoagulation Monitoring Program. Indication: Atrial Fibrillation Current dose per medication list: Apixaban 5 mg BID On therapy since: March 2016 Recent hospitalizations/ED/Office Visits for bleeding/clotting concerns: No Other bleeding or side effect concerns: Yes: History of GI bleed (06/2021) while on Eliquis Additional findings: Due to cost was taking 2.5 mg QAM, 5 mg QPM starting 12/2019, prior to that he took it 5 mg daily due to co-pay and believe to have less subcutaneous bleeding. 09/28/22 cardiology OV: In review of his medications, he reduced his Eliquis to 2.5 mg twice daily in an effort to make it to the end of the month when his insurance changes in his medication will maricarmen charge. He is currently out of Eliquis. Last fill was on October 08, 2022 for #180 tablets OBJECTIVE Age: [age] year old Wt Readings from Last 2 Encounters: 09/28/22 111.1 kg (245 lb) 08/16/22 114 kg (251 lb 4.8 oz) Lab Results Component Value Date CR 2.29 (H) 08/11/2022 CR 1.25 07/04/2021 CR 1.64 (H) 02/03/2019 Lab Results Component Value Date HGB 10.6 07/04/2021 HGB 13.9 07/04/2018 PLT 250 07/04/2021 PLT 242 07/04/2018 ASSESSMENT/PLAN A chart review for Direct Oral Anticoagulant (DOAC) Stewardship has been completed for: Dosing: recommend adjustment to Apixaban 2.5 mg BID for age >= 80 years and creatinine >= 1.5mg/dL (consistent with package insert dosing) Lab monitoring: serum creatinine check recommended Plan made per [facility] anticoagulation protocol Ann Leos RN Anticoagulation Clinic HER documented in this encounter Plan of Treatment Upcoming Encounters Date Type Department Care Team (Late st Contact Info) Description 12/19/2023 9:45 AM CDT Office Visit [address] [place] [phone] Trudi Grayson APRN APPLICATION DEVELOPMENT TEAM LEAD [address] [place] [address] Steven Canchola MD [address] [place] [address] 12/27/2023 Ancillary Procedure [facility] [address] [place] [phone] Chris De Leon MD [address] [place] [id number] documented as of this encounter Visit Diagnoses Diagnosis Persistent atrial fibrillation (H) Atrial fibrillation documented in this encounter Care Teams Loom Fixer Apprentice Relationship Specialty Start Date End Date Graham Licona MD [facility] [address] [place] [address] PCP - General Family Medicine 06/30/21 Trudi Grayson APRN APPLICATION DEVELOPMENT TEAM LEAD [address] [place] [id number] Assigned Heart and Vascular Provider 10/07/22 Steven Canchola MD [address] [place] [id number] Cardiovascular Disease 07/12/23 documented as of this encounter
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
--- OUTSIDE RECORDS SUMMARY | 2023-10-12 09:51 | XMS_ITS | Encounter Summary ---
Author Name Unknown Organization [place] Address [address] [place] [address] Care Team Providers Care Registry Rn Name Role Phone Graham Licona MD Primary Care Provider [phone] Trudi Grayson APRN AMUSEMENT EQUIPMENT OPERATOR Unavailable [phone] Encounter Details Date Type Department Care Team (Latest Contact Info) Description 10/26/2022 Travel Social History Tobacco Use Types Packs/Day Years Used Date Smoking Tobacco: Never Smokeless Tobacco: Never Alcohol Use Standard Drinks/Week Comments No 0 (1 standard drink = 0.6 oz pur e alcohol) Sex and Gender Information Value Date Recorded Sex Assigned at Not on file Gender Identity Not on file Sexual Orientation Not on file COVID-19 Exposure Response Date Recorded In the last 10 days, have yo u been in contact with someone who was confirmed or suspected to have Coronavirus/COVID-19? No / Unsure 10/26/2022 9:17 AM SWITCHER documented as of this encounter Plan of Treatment Upcoming Encounters Date Type Department Care Team (Late st Contact Info) Description 12/19/2023 9:45 AM CDT Office Visit [facility] [address] [facility] [address] [place] [phone] Trudi Grayson APRN AMUSEMENT EQUIPMENT OPERATOR [address] [place] [address] [id number] Steven Canchola MD [address] [place] [id number] 12/27/2023 Ancillary Procedure [facility] Heart Care [address] [facility] [address] [place] [phone] Chris De Leon MD [address] [place] [address] documented as of this encounter Visit Diagnoses Not on filedocumented in this encounter Care Teams Registry Rn Relationship Specialty Start Date End Date Graham Licona MD [facility] [address] [place] [address] PCP - General Family Medicine 06/30/21 Trudi Grayson APRN AMUSEMENT EQUIPMENT OPERATOR [address] [place] [id number] Assigned Heart and Vascular Provider 10/07/22 documented as of this encounter
--- OUTSIDE RECORDS SUMMARY | 2023-10-12 09:51 | XMS_ITS | Encounter Summary ---
Author Name Unknown Organization [place] Address [address] [facility] [place] [address] Care Team Providers Care News Internship Name Role Phone Graham Licona MD Primary Care Provider [phone] Trudi Grayson APRN BOARD DESIGN ENGINEER Unavailable [phone] Reason for Visit * Reason Onset Date Comments Refill Request 12/04/2022 amiodarone Encounter Details Date Type Department Care Team (Late st Contact Info) Description 12/04/[address] [facility] Heart [facility] [address] [place] [address] [address] [place] [address] Trudi Grayson APRN BOARD DESIGN ENGINEER [address] [facility] [place] [place], [place] [address] Refill Request (amiodarone) Social History Tobacco Use Types Packs/Day Years [...] encounter Miscellaneous Notes * Telephone Encounter - Cristopher Durán RN - 12/04/2022 8:40 AM TECHNICAL PUBLICATIONS MANAGER [facility] Refill Guideline reviewed. Medication meets criteria for refill. NICAL PUBLICATIONS MANAGER documented in this encounter Plan of Treatment Upcoming Encounters Date Type Department Care Team (Late st Contact Info) Description 12/19/2023 9:45 AM CDT Office Visit [facility] [place] [address] [facility] [address] [place] [phone] Trudi Grayson APRN BOARD DESIGN ENGINEER [address] [place] [address] Steven Canchola MD [address] [place] [id number] 12/27/2023 Ancillary Procedure [facility] Heart Care [address] [facility] [address] [place] [phone] Chris De Leon MD [address] [place] [address] documented as of this encounter Visit Diagnoses Diagnosis Sustained VT (ventricular tachycardia) (H) Paroxysmal ventricular tachycardia documented in this encounter Care Teams News Internship Relationship Specialty Start Date End Date Graham Licona MD [facility] [address] [place] [address] PCP - General Family Medicine 06/30/21 Trudi Grayson APRN BOARD DESIGN ENGINEER [address] [address] Assigned Heart and Vascular Provider 10/07/22 documented as of this encounter
--- OUTSIDE RECORDS SUMMARY | 2023-10-12 09:51 | XMS_ITS | Encounter Summary ---
Author Name Unknown Organization [place] Address [facility] [facility] [place] [address] Care Team Providers Care Shampoo Technician Name Role Phone Herminia Coleman MD Primary Care Provider Ellie jamesilaGraham Calvo MD Primary Care Provider [phone] [facility] Primary Care Provider + Slava Hernandez PA-C Primary Care Provider Timothy Smith MD Unavailable Unavailable Graham Licona MD Primary Care Provider [phone] Tammy Montenegro PA-C Unavailable [phone] Trudi Grayson APRN SQUIRREL MAN Unavailable [phone] Steven Canchola MD Unavailable + Encounter Details Date Type Department Care Team (Late st Contact Info) Description 03/18/2013 Office Visit-[facility] Heart [address] [place] [phone] Michelle Huff PA-C Social History Tobacco Use Types Packs/Day Years Used Date Smoking Tobacco: Never Alcohol Use Standard Drinks/Week Comments Yes 0 (1 standard drink = 0.6 oz pur e alcohol) Sex and Gender Information Value Date Recorded Sex Assigned at Not on file Gender Identity Not on file Sexual Orientation Not on file documented as of this encounter Progress Notes * Michelle Huff PA-C - 04/26/2013 2:24 PM CDT Progress Note Created by: HANK Arellano [id number] DATE: 03/18/2013 RADHA FAROOQ DATE OF : 1940 AGE: [age] years old Referring Physician: HERMINIA COLEMAN Referring Clinic: [facility] CURRENT DIAGNOSES 1. - Hyperlipidemia, 272.4 2. [...] Atrial Flutter HISTORY OF PRESENT ILLNESS: Mr. Farooq is a pleasant 72-year-old patient who presents to clinic today for followup after atrial flutter ablation to discuss chest discomfort as well as differential blood pressures. He has a history of coronary artery disease and underwent coronary artery bypass graftsurgery in the past at another institution. He presented to [facility] last year withchest discomfort and was found to be in atrial flutter. Due to troponin elevation he underwent coronary angiography and was found to have no significant stenosis. No intervention was performed. Subsequently he went to [facility] and underwent a direct current cardioversion. Dr. Smith saw him in January of this year for concerns regarding recurrent chest pain with exertion, such as walking more than twoblocks, as well as shortness of breath and palpitations. His EKG at that time showed atrial flutterwith controlled ventricular response. Dr. Smith discussed options with him and he decided to pursue anatrial flutter ablation. This was performed on 02/27/[address] Smith. A complete tricuspid isthmus block was achieved and one further ablation was required to eliminate the residual atrial electrogram over the tricuspid isthmus. He had no evidence of accessory pathway or dual AV mack pathways. No inducible SVT or VT. He has not suffered any complications from this procedure. He did call in to our clinic about two weeks later as he was having chest discomfort with activity that went away with rest. He would take an occasional nitroglycerin and this pain was relieved. Yesterday he called in to our clinic to cancel an appointment he had for today to discuss chest discomfort and then took his blood pressure this morning and decided to come in. He was concerned as he took his blood pressure on both arms and on his left side it was more elevated than the right side, in the 140-150 on the left and 120s-130s on the right. He has not measured his blood pressure on both arms in the past. Today wedid check his blood pressure in both arms and they are very close in number. He continues to be on Coumadin 5 mg q.d. He does tell me he has occasional episodes of chest discomfort that can occur randomly either at rest or with exertion. These do not seem to have any associated symptoms and are cert ainly improving since the ablation. Again, he had [...] heart rate of 87 beats per minute lisa right bundle branch block. PAST HISTORY Past [...] Weight- 318.00 lbs. Height- 71 BMI Measurement: [email or web address] Error: [Microsoft][ODBC SQL Mechanical Design Engineer Power Mule Operator][SQL Mechanical Design Engineer]Divide by zero error encountered. - [id number] CONSTITUTIONAL cooperative, alert and oriented,well developed, well [...] S4, Apical impulse not displaced, no murmurs, gallops or rubs detected. ABDOMEN abdomen soft, bowel sounds [...] place. MEDICATIONS UPDATED/STARTED TODAY: IMPRESSIONS/PLAN IMPRESSION/PLAN: Mr. Farooq is a pleasant 72-year-old patient who presents to clinic today for followup after atrial flutter ablation. He is coming in today to discuss chest discomfort after the procedure, as well as differential blood pressures. 1. Atrial flutter, status post atrial flutter ablation on 02/27/13. He does note some episodes of chest discomfort randomly. These seem to be improving since the procedure. He has taken some nitroglycerin for the pain and this completely relieves it. Hecontinues to be on Coumadin for anticoagulation and is taking metoprolol succinate 50 mg q.d. 2. Hypertension. Blood pressure is well controlled today. He did come in because he was concerned regarding different blood pressure values for each arm. We did measure each arm today in the clinic and thenumbers were very similar. I did suggest this could possibly be related to him putting on the bloodpressure cuff himself and maybe not getting it as [...] in 1985 with a four-vessel bypass at [facility]. Subsequent angiography in Jan, 2012, did not show any significant stenosis. Thank you for allowing me to participate in the care of this pleasant patient. I encouraged him to call if he has any concerns or questions. He does have followup scheduled with Saadia Montenegro next week.I encouraged him to keep this appointment but certainly if he is feeling well he can cancel it. He will also be seeing Dr. Smiht in May. TODAYS ORDERS 1. 12 Lead EKG Today HANK Arellano documented in this encounter Plan of Treatment Upcoming Encounters Date Type Department Care Team (Late st Contact Info) Description 12/19/2023 9:45 AM CDT Office Visit [facility] Heart [facility] [address] [facility] [address] [place] [phone] Trudi Grayson APRN SQUIRREL MAN [address] [place] [id number] Steven Canchola MD [address] [place] [id number] 12/27/2023 Ancillary Procedure [facility] Heart Care [address] [facility] [address] [place] [phone] Chris De Leon MD [address] [place] [address] documented as of this encounter Visit Diagnoses Not on filedocumented in this encounter Care Teams Shampoo Technician Relationship Specialty Start Date End Date Herminia Coleman MD PCP - General Family Practice 02/01/12 04/12/17 Graham Licona MD [facility] [address] [place] [address] PCP - General Family Practice 04/13/17 01/15/18 [facility] [id number] [place] [phone] PCP - General 01/16/18 07/01/18 Slava Hernandez PA-C [facility] [id number] [place] [address] PCP - General Physician Accounts Receivable Collector 07/02/18 06/29/21 Graham Licona MD [facility] [address] [place] [address] PCP - General Family Medicine 06/30/21 Timothy Smith MD Assigned Heart and Vascular Provider 07/23/20 09/08/22 Tammy Montenegro PA-C [address] [place] [id number] Assigned Heart and Vascular Provider 09/09/22 10/06/22 Trudi Grayson APRN SQUIRREL MAN [address] [id number] Assigned Heart and Vascular Provider 10/07/22 Steven Canchola MD [address] [place] [address] Cardiovascular Disease 07/12/23 documented as of this encounter
--- OUTSIDE RECORDS SUMMARY | 2023-10-12 09:51 | XMS_ITS | Encounter Summary ---
Author Name Unknown Organization [place] Address [address] [place] [address] Care Team Providers Care Email Operations Manager Name Role Phone Herminia Coleman MD Primary Care Provider Ellie jamesilaGraham Calvo MD Primary Care Provider [phone] [facility] Primary Care Provider + Slava Hernandez PA-C Primary Care Provider Timothy Smith MD Unavailable Unavailable Graham Licona MD Primary Care Provider [phone] Tammy Montenegro PA-C Unavailable [phone] Trudi Grayson APRN SENIOR CENTER MANAGER Unavailable [phone] Steven Canchola MD Unavailable + Encounter Details Date Type Department Care Team (Late st Contact Info) Description 05/23/2013 Office Visit-[facility] Heart [address] [place] [phone] Timothy Smith MD Social History Tobacco Use Types Packs/Day Years Used Date Smoking Tobacco: Never Alcohol Use Standard Drinks/Week Comments Yes 0 (1 standard drink = 0.6 oz pur e alcohol) Sex and Gender Information Value Date Recorded Sex Assigned at Not on file Gender Identity Not on file Sexual Orientation Not on file documented as of this encounter Progress Notes * Timothy Smith MD - 05/26/2013 12:59 PM CDT Progress Note Created by: Timothy Smith M.D. DATE: 05/23/2013 RADHA FAROOQ DATE OF : 1940 AGE: [age] years old Referring Physician: HERMINIA COLEMAN Referring Clinic: [facility] CURRENT DIAGNOSES 1. - Hyperlipidemia, 272.4 [...] I had the pleasure of seeing Mr. Farooq for follow-up of atrial flutter ablation and coronary arterydisease. Since the success ablation of atrial flutter in January he has been doing well. He has not hadany recurrent palpitation and denies dizziness. He does [...] had no crackles or wheezing. The cardiac rhythmwas regular and the heart sounds were remote. There was no murmur. The abdominal examination showedno obesity. He has 1+ edema in the left [...] hr, 1 p.o. twice daily, #180 (One Morton Eighty) MEDICATIONS REFILLED/STOPPED TODAY: metoprolol succinate 50 mg tablet extended release 24 hr 1 p.o. daily #0 (Zero) Dosage Increased, pseudoephedrine HCl 60 mg tablet 90 mg po daily #0 (Zero) Dosage Decreased and warfarin 5 mg tablet Take as Directed #0 (Zero) Physician Order IMPRESSIONS/PLAN ASSESSMENT AND RECOMMENDATION: Mr. Farooq is maintaining sinus rhythm. He has been more than two months after the flutter ablation. So far we have not had any atrial fibrillation. I therefore have asked him to switched warfarin to aspirin 81 mg once a day. For his angina he is already on nitrate andbeta-best. I started him on Ranexa 1,000 mg [...] Description 12/19/2023 9:45 AM CDT Office Visit [facility] Heart [facility] [address] [facility] [address] [place] [phone] Trudi Grayson APRN SENIOR CENTER MANAGER [address] [place] [id number] Steven Canchola MD [address] [place] [id number] 12/27/2023 Ancillary Procedure [facility] Heart Care [address] [facility] [address] [place] [phone] Chris De Leon MD [address] [place] [id number] documented as of this encounter Visit Diagnoses Not on filedocumented in this encounter Care Teams Email Operations Manager Relationship Specialty Start Date End Date Herminia Coleman MD PCP - General Family Practice 02/01/12 04/12/17 Graham Licona MD [facility] [address] [place] [address] PCP - General Family Practice 04/13/17 01/15/18 [facility] [id number] [place] [phone] PCP - General 01/16/18 07/01/18 Slava Hernandez PA-C [facility] [id number] [place] [address] PCP - General Physician Laborer Syrup Machine 07/02/18 06/29/21 Graham Licona MD [facility] [address] [place] [address] PCP - General Family Medicine 06/30/21 Timothy Smith MD Assigned Heart and Vascular Provider 07/23/20 09/08/22 Tammy Montenegro PA-C [address] [place] [address] Assigned Heart and Vascular Provider 09/09/22 10/06/22 Trudi Grayson APRN CNP [address] [place] [address] Assigned Heart and Vascular Provider 10/07/22 Steven Canchola MD [address] [place] [address] Cardiovascular Disease 07/12/23 documented as of this encounter
--- OUTSIDE RECORDS SUMMARY | 2023-10-12 09:51 | XMS_ITS | Encounter Summary ---
Author Name Unknown Organization [place] Address [address] [place] [address] Care Team Providers Care Door And Arrival Attendant Name Role Phone Graham Licona MD Primary Care Provider [phone] Trudi Grayson APRN MUSIC THERAPY TEACHER Unavailable [phone] Reason for Visit * CV Testing (Routine) - Closed Specialty Diagnoses / Procedures Referred By Contnghia t Referred To Contact Diagnoses Cardiac pacemaker in situ Procedures Cardiac Device Check - Remote Timothy Smith MD [facility] [address] [place] [address] Referral ID Status Reason Start Date Expiration Date Visits Re quested Visits Authorized [id number] Closed 08/16/2022 08/16/2023 100 100 Encounter Details Date Type Department Care Team (Latest Contact Info) Description 11/27/2022 Ancillary Procedure [facility] Heart Care [address] [facility] [address] [place] [phone] Cardiac pacemaker in situ Social History Tobacco Use Types Packs/Day Years [...] Description 12/19/2023 9:45 AM CDT Office Visit [facility] Heart [facility] [address] [facility] [address] [place] [phone] Trudi Grayson APRN CNP [address] [place] [id number] Steven Canchola MD [address] [place] [id number] 12/27/2023 Ancillary Procedure [facility] Heart Care [address] [facility] [address] [place] [phone] Chris De Leon MD [address] [place] [address] documented as of this encounter Procedures Procedure Name Priority Date/Time Associated Diagnosis Comments INTERROGATION DEVICE EVAL REMOTE ICD UP TO 90 Routine 11/27/2022 4:27 PM INSTITUTION DIRECTOR Cardiac pacemaker in situ documented in this encounter Results * INTERROGATION DEVICE EVAL REMOTE ICD UP TO 90 (11/27/2022 4:27 PM INSTITUTION DIRECTOR) Date Time Interrogation Session [id number] [employer] Implantable Pulse Generator Master Automotive Technician [employer] Implantable Pulse Generator Model D432 RESONATE EL ICD [employer] Implantable Pulse Generator Serial Number [id number] [employer] Type Interrogation Session Remote [facility] Clinic Name [facility] [employer] Implantable Pulse Generator Type Defibrillator [employer] Implantable Pulse Generator Implant Date 20210704 [employer] Implantable Lead Master Automotive Technician [employer] Implantable Lead Model 0272 Lopez 4-Site S [employer] Implantable Lead Serial Number [id number] [employer] Implantable Lead Implant Date 20210704 [employer] Implantable Lead Polarity Type Bipolar Lead [employer] Implantable Lead Location Detail 1 UNKNOWN [employer] Implantable Lead Location Right Ventricle [employer] Brandon Setting Mode (NBG Code) VVIR [...] ms [employer] Lead Channel Setting Pacing Amplitude 2.8 V [employer] Lead Channel Setting Pacing Capture Mode Adaptive [employer] Zone Setting Type Category VF [employer] Zone Setting Vendor Type Category VF [employer] Zone Setting Detection Interval 273 ms [employer] Zone Setting Type Category VT [employer] Zone Setting Vendor Type Category VT [employer] Zone Setting Detection Interval 353 ms [employer] Zone Setting Type Category VT [employer] Zone Setting Vendor Type Category VT-1 [employer] Zone Setting Detection Interval 400 ms [employer] Lead Channel Impedance Value 506 ohm [employer] Lead Channel Pacing Threshold Amplitude 1.2 V [employer] Lead Channel Pacing Threshold Pulse Width 0.4 ms [employer] Battery Date Time of Measurements [id number] [employer] Battery Status Beginning of Service [employer] Battery Remaining Longevity 162 mo [employer] Battery Remaining Percentage 100 % [employer] Capacitor Charge Type Reformation [employer] Capacitor Last Charge Date Time [id number] [employer] Capacitor Charge Time 8.8 s [employer] Capacitor Charge Type Shock [employer] [...] Count 0 [employer] Episode Statistic Type Category VF [employer] Episode Statistic Vendor Type Category VF [employer]TR[employer] Episode Statistic Recent Count 0 [employer] [...] [employer] Episode Statistic Recent Date Time Start [id number] [employer] Episode Statistic Recent Date Time End [id number] [employer] Episode Statistic Recent Date Time Start [employer] Episode Statistic Recent Date Time End [employer] Episode Statistic Recent Date Time Start [employer] Episode Statistic Recent Date Time End [employer] Episode Identifier [id number] [employer] Episode Type Category Periodic EGM [employer] Episode Date Time [id number] [employer] Anatomical Region Laterality Modality Other 11/27/2022 3:13 PM INSTITUTION DIRECTOR Narrative 12/01/2022 2:00 PM INSTITUTION DIRECTOR [employer] Resonate (S) ICD Remote Device Check DOOR PERSON: 17% Mode: VVIR 50-130 Underlying Rhythm: VS 60-70's Heart Rate: Histogram shows good variability with rates primarily 50-100's bpm Sensing: WNL Pacing Threshold: WNL Impedance: WNL Battery Status: Estimated 13.5 years Atrial Arrhythmia: 0 Ventricular Arrhythmia: 0 ATP: 0 Shocks: 0 Tachy Therapy Review: Device #1 BS Essent[employer] 01/2016 : PPM ?Current Device #2 BS Resonate 07/2021: as below Patent has received ATPx26 and 6 shocks were delivered. Episodes of ATP occurred on 01/27/22 at 0522,0525,0527, 0531, 0532 0930, 1112, 1121, 1124, 1218, 1220 and 01/28/22 at 0610, 0611 and 0612. Shock episode occurred on 01/27/22 after ATP x6 was unsuccessful, 6-41 J shocks were delivered. ?? EGM shows: VT(190bpm)> ATP delivered that was [...] 01/26/22 with 4 EGMs available. EGMs show 10-22with V rates of 180-190bpm. Care Plan: Remote scheduled. Reviewed results and plan with pt. via phone. SIENNA Crooks I have reviewed and interpreted the device interrogation, settings, programming and nurse's summary. The device is functioning within normal device parameters. I agree with the current findings, assessment and plan. Timothy Smith MD [facility] CARDIAC SERVICES ORDERABLES documented in this encounter Visit Diagnoses Diagnosis Cardiac pacemaker in situ documented in this encounter Care Teams Door And Arrival Attendant Relationship Specialty Start Date End Date Graham Licona MD [facility] [address] [place] [address] PCP - General Family Medicine 06/30/21 Trudi Grayson APRN MUSIC THERAPY TEACHER [address] [address] Assigned Heart and Vascular Provider 10/07/22 documented as of this encounter
--- OUTSIDE RECORDS SUMMARY | 2023-10-12 09:51 | XMS_ITS | Encounter Summary ---
Author Name Unknown Organization [place] Address [facility] [facility] [place] [address] Care Team Providers Care Palm And Back Forger Name Role Phone Graham Licona MD Primary Care Provider Trudi Grayson APRN AREA PLANT MANAGER Unavailable [phone] Encounter Details Date Type Department Care Team (Late st Contact Info) Description 10/26/2022 9:30 AM POULTRY VETERINARIAN Lab [address] [place] [address] Paroxysmal ventricular tachycardia (H); Hypothyroidism due to medication Social History Tobacco Use Types Packs/Day Years [...] Coronavirus/COVID-19? No / Unsure 10/26/2022 9:17 AM POULTRY VETERINARIAN documented as of this encounter Plan of Treatment Upcoming Encounters Date Type Department Care Team (Late st Contact Info) Description 12/19/2023 9:45 AM CDT Office Visit [place] [id number] [facility] [address] [place] [address] Trudi Grayson, [place]AC[place] AREA PLANT MANAGER [address] [address] Steven Canchola MD [address] [place] [address] 12/27/[address] [facility] Heart Care [address] [place] [phone] Chris De Leon MD [address] [place] [id number] documented as of this encounter Procedures Procedure Name Priority Date/Time Associated Diagnosis Comments TSH WITH FREE T4 REFLEX Routine 10/26/2022 9:19 AM POULTRY VETERINARIAN Paroxysmal ventricular tachycardia (H) Hypothyroidism due to medication T4 FREE Routine 10/26/2022 9:19 AM POULTRY VETERINARIAN Paroxysmal ventricular tachycardia (H) Hypothyroidism due to medication documented in this encounter Results * (ABNORMAL) T4 free (10/26/2022 9:19 AM POULTRY VETERINARIAN) Free T4 0.83(L) 0.90 - 1.70 ng/dL 10/26/2022 10:43 AM POULTRY VETERINARIAN [facility] LABORATORY Blood STRUCTURE OF RIGHT UPPER LIMB / Unknown Venipuncture / Unknown 10/26/2022 9:19 AM POULTRY VETERINARIAN 10/26/2022 9:22 AM POULTRY VETERINARIAN Trudi Grayson APRN AREA PLANT MANAGER LAB - BLOOD ORD ERABLES LABORATORY [facility] Acute Care Lab [address] Lab (1st floor, no room number) [place] [address], [facility] [[email or web address]] [phone] * (ABNORMAL) TSH with free T4 reflex (10/26/2022 9:19 AM POULTRY VETERINARIAN) TSH 22.48(H) 0.30 - 4.20 uIU/mL 10/26/2022 10:19 AM POULTRY VETERINARIAN RH LABORATORY Blood STRUCTURE OF RIGHT UPPER LIMB / Unknown Venipuncture / Unknown 10/26/2022 9:19 AM POULTRY VETERINARIAN 10/26/2022 9:22 AM POULTRY VETERINARIAN Trudi Grayson APRN, CNP LAB - BLOOD ORD ERABLES [facility] Acute Care Lab [address] Lab (1st floor, no room number) [place] [address], [facility] [[email or web address]] [phone] documented in this encounter Visit Diagnoses Diagnosis Paroxysmal ventricular tachycardia (H) Paroxysmal ventricular tachycardia Hypothyroidism due to medication documented in this encounter Care Teams Palm And Back Forger Relationship Specialty Start Date End Date Graham Licona MD [facility] [address] [place] [address] PCP - General Family Medicine 06/30/21 Trudi Grayson APRN AREA PLANT MANAGER [address] [address] Assigned Heart and Vascular Provider 10/07/22 documented as of this encounter
--- OUTSIDE RECORDS SUMMARY | 2023-10-12 09:51 | XMS_ITS | Encounter Summary ---
Author Name Unknown Organization [place] Address [address] [facility] [place] [address] Care Team Providers Care Men'S Swim Coach Name Role Phone Herminia Coleman MD Primary Care Provider Ellie jamesilable Graham Licona MD Primary Care Provider [phone] [facility] Primary Care Provider + Slava Hernandez PA-C Primary Care Provider Timothy Smith MD Unavailable Unavailable Graham Licona MD Primary Care Provider [phone] Tammy Montenegro PA-C Unavailable [phone] Trudi Grayson APRN INTERNET SALES REPRESENTATIVE Unavailable [phone] Steven Canchola MD Unavailable + Encounter Details Date Type Department Care Team (Late st Contact Info) Description 02/10/2013 Office Visit-[facility] Heart [address] [place] [phone] Timothy Smith MD Social History Tobacco Use [...] Progress Notes * Timothy Smith MD - 02/12/2013 1:31 PM CDT Progress Note Created by: Timothy Smith M.D. DATE: 02/10/2013 RADHA VILLA DATE OF : 1940 AGE: [age] years old Referring Physician: HERMINIA COLEMAN Referring Clinic: [facility] CURRENT DIAGNOSES 1. - Hyperlipidemia, 272.4 2. - Hypertension, 401.1 3. MO-Recent Unspecified, 410.91 4. - CAD, 414.00 5. [...] of atrial flutter. This is a 72-year-old white male with a history of coronary artery disease and coronary bypass surgery that was performed years ago in another institution. The patient presented to [facility] last year with chestpain. He was found to be in atrial flutter. Because of troponin elevation the attention was focusedon acute coronary syndrome. He underwent coronary angiography and was found to have no significant stenosis. Therefore, he did not undergo any intervention. The patient was treated medically and was discharged from the hospital with no Cardiology followup plan. Subsequently he went to [facility] and underwent a DC cardioversion. Apparently, sometime [...] weight 322 pounds, and heart rate 76 beatsper minute. The eyes and ENT were unremarkable. The lungs had no crackles or wheezing. The cardiac rhythm was regular and the heart sounds were normal. The heart sounds were remote. There was no murmur. The abdominal examination showed severe obesity. He had trace bilateral leg edema. Today's EKG showed atrial flutter with controlled ventricular rate when he was at rest. There was 1PVC recorded as well. PAST HISTORY Past Medical [...] with exertion we need to reassess the situation after successful ablation of atrial flutter. If he [...] AM CDT Office Visit [facility] [address] [facility] [address] [place] [phone] Trudi Grayson APRN INTERNET SALES REPRESENTATIVE [address] [place] [id number] Stveen Canchola MD [address] [place] [id number] 12/27/2023 Ancillary Procedure [facility] Heart Care [address] [facility] [address] [place] [phone] Chris De Leon MD [address] [place] [id number] documented as of this encounter Visit Diagnoses Not on filedocumented in this encounter Care Teams Men'S Swim Coach Relationship Specialty Start Date End Date Herminia Coleman MD PCP - General Family Practice 02/01/12 04/12/17 Graham Licona MD [facility] [address] [place] [address] PCP - General Family Practice 04/13/17 01/15/18 [facility] [address] [place] [phone] PCP - General 01/16/18 07/01/18 Slava Hernandez PA-C [facility] [id number] [place] [address] PCP - General Physician Recycling Specialist 07/02/18 06/29/21 Graham Licona MD [facility] [address] [place] [address] PCP - General Family Medicine 06/30/21 Timothy Smith MD Assigned Heart and Vascular Provider 07/23/20 09/08/22 Tammy Montenegro PA-C [address] [place] [id number] Assigned Heart and Vascular Provider 09/09/22 10/06/22 Trudi Grayson APRN INTERNET SALES REPRESENTATIVE [address] [place] [id number] Assigned Heart and Vascular Provider 10/07/22 Steven Canchola MD [address] [place] [id number] Cardiovascular Disease 07/12/23 documented as of this encounter
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
--- OUTSIDE RECORDS SUMMARY | 2023-10-12 09:51 | XMS_ITS | Encounter Summary ---
Author Name Unknown Organization [place] Address [address] [facility] [place] [address] Care Team Providers Care Fisher Eel Spear Name Role Phone Graham Licona MD Primary Care Provider [phone] Trudi Grayson APRN JACQUARD LACE WEAVER Unavailable [phone] Reason for Visit * Reason Onset Date Comments Patient Request 11/27/2022 Remote device ch suma Encounter Details Date Type Department Care Team (Late st Contact Info) Description 11/27/2022 Telephone [facility] [address] [place] [address] Trudi Grayson APRN JACQUARD LACE WEAVER [address] [place], [place] [id number] Patient Request (Remote device check ) Social History Tobacco Use Types Packs/Day [...] encounter Miscellaneous Notes * Telephone Encounter - Sintia Muhammad RN - 11/27/2022 1:08 PM CST Received below message from call center regarding patient's remote device check that was due 11/16/22. Called patient who stated he had sent on that day and everything went through showing green to orange. Explained the orange can mean that it got stuck getting the information out during the transmission and that the website shows his monitor has not been connecting. Recommended he unplug his monitor, wait for a couple minutes, plug it back in and then resend. Patient stated he will try this later this afternoon. Device techs notified and will watch for the transmission. Holden, RN ENGINEERING SUPERVISOR * Telephone Encounter - Michelle Noe - 11/27/2022 8:35 AM CST [facility] Call Center Phone Message May a detailed message be left on voicemail: yes Reason for Call: Other: Pt recieved a letter that he missed his remote device check appointment on 11/16/22 however pt believes he did send the transmission. Pt would like a call back to make sure werecieved the information. Please call at earliest convenience. Action Taken: Other: Cardiology Travel Screening: Not Applicable Thank you! [facility] ENGINEERING SUPERVISOR documented in this encounter Plan of Treatment Upcoming Encounters Date Type Department Care Team (Late st Contact Info) Description 12/19/2023 9:45 AM CDT Office Visit [facility] [place] [address] [place] [phone] Trudi Grayson APRN JACQUARD LACE WEAVER [address] [place] [address] Steven Canchola MD [address] [place] [address] 12/27/[address] [facility] [address] [facility] [address] [place] [phone] Chris De Leon MD [address] [place] [address] documented as of this encounter Visit Diagnoses Not on filedocumented in this encounter Care Teams Fisher Eel Spear Relationship Specialty Start Date End Date Graham Licona MD [facility] [address] [place] [address] PCP - General Family Medicine 06/30/21 Trudi Grayson APRN JACQUARD LACE WEAVER [address] [place] [address] Assigned Heart and Vascular Provider 10/07/22 documented as of this encounter
--- OUTSIDE RECORDS SUMMARY | 2023-10-12 09:51 | XMS_ITS | Encounter Summary ---
Author Name Unknown Organization [place] Address [facility] [place] [address] Care Team Providers Care Farm Mechanic Name Role Phone Herminia Coleman MD Primary Care Provider Ellie jamesilaGraham Calvo MD Primary Care Provider [phone] [facility] Primary Care Provider + Slava Hernandez PA-C Primary Care Provider [phone] Timothy Smith MD Unavailable Unavailable Graham Licona MD Primary Care Provider [phone] Tammy Montenegro PA-C Unavailable [phone] Trudi Grayson APRN SUBSTATION OPERATOR APPRENTICE Unavailable [phone] Steven Canchola MD Unavailable + Encounter Details Date Type Department Care Team (Late st Contact Info) Description 09/12/2013 Office Visit-[facility] [address] [facility] [address] [place] [address] Tammy Montenegro PA-C [address] [facility] [address] [place], [place] [id number] Social History Tobacco Use Types Packs/Day Years Used Date Smoking Tobacco: Never Alcohol Use Standard Drinks/Week Comments Yes 0 (1 standard drink = 0.6 oz pur e alcohol) Sex and Gender Information Value Date Recorded Sex Assigned at Not on file Gender Identity Not on file Sexual Orientation Not on file documented as of this encounter Progress Notes * Tammy Montenegro PA-C - 09/19/2013 3:42 PM CST Progress Note Created by: Demetra Boyle DATE: 09/12/2013 RADHA VILLA DATE OF : 1940 AGE: [age] years old Referring Physician: HERMINIA COLEMAN Referring Clinic: [facility] CURRENT DIAGNOSES 1. - Hyperlipidemia, 272.4 2. - Hypertension, 401.1 3. OH-Recent Unspecified, 410.91 4. - CAD, 414.00 5. [...] came for followup of his coronary disease andchest discomfort. As you know, he is a 72-year-old white male. He has a history of four-vessel bypass surgery in 1985 and January of 2012. He underwent coronary angiography, which showed diffuse disease,but no need for mechanical intervention. He has a history of atrial flutter, status-post ablation in January of 2013. He saw Dr. Smith, his primary greenhouse technician, in May, at which time he was complaining of chest discomfort. At that time he was noted to already be on isosorbide, as well as beta-blockade. Dr. Smith recommended Ranexa 1,000 mg twice daily. He also discontinued his warfarin in favor of baby aspirin. He called our office on 09/01/2013 complaining of a presyncopal event that had happened after a large meal on . He was asked to see [...] notes this mostly when he is walking outsideor walking in a big store, such as [employer]. He does workout at [employer] three times weekly and states he has not had to stop at all or take nitroglycerin when he does the recumbent bike. He deniesany problems with edema, orthopnea, or PND. He [...] any problems with chest pain during or fo llowing. He denies any bleeding issues, fevers, or [...] Occupation - retired; Residence - lives in [place] year round; REVIEW OF SYSTEMS GENERAL See [...] tablet, 1 p.o. twice daily, #180 (One [place] Eighty) MEDICATIONS STOPPED TODAY: losartan 25 mg tablet, 1 p.o. daily IMPRESSIONS/PLAN 1. Coronary disease and angina. He was unable to tolerate isosorbide due to headaches. Ranexa did not seem to improve his symptoms, per his report. His blood pressure is a bit high, and I think that we could certainly increase his losartan, aiming for a blood pressure closer to the 120s to see if that improves his chest discomfort at all. At this time, therefore, I will increase losartan to 25 mgtwice daily, and a prescription was Escripted for [...] but currently he will plan to keep his follow-up appointment in May of 2014. 2. Presyncopal event. He thinks that this was more related to a change in his blood sugar after a heavy pasta meal. He did not check his blood pressure or blood sugar. I explained to him our limitations given that this has only happened once. At this time, I have recommended that he continue to follow this. If he were to have a significant [...] Description 12/19/2023 9:45 AM CDT Office Visit [facility] [address] [place] [phone] Trudi Grayson APRN SUBSTATION OPERATOR APPRENTICE [address] [id number] Steven Canchola MD [address] [place] [id number] 12/27/2023 Ancillary Procedure [facility] [address] [facility] [address] [place] [phone] Chris De Leon MD [address] [place] [address] documented as of this encounter Visit Diagnoses Not on filedocumented in this encounter Care Teams Farm Mechanic Relationship Specialty Start Date End Date Herminia Coleman MD PCP - General Family Practice 02/01/12 04/12/17 Graham Licona MD [facility] [address] [place] [address] PCP - General Family Practice 04/13/17 01/15/[address] [address] PCP - General 01/16/18 07/01/18 Slava Hernandez PA-C [address] [address] PCP - General Physician Sail Cutter 07/02/18 06/29/21 Graham Licona MD [facility] [address] [place] [address] PCP - General Family Medicine 06/30/21 Timothy Smith MD Assigned Heart and Vascular Provider 07/23/20 09/08/22 Tammy Montenegro PA-C [address] [place] [address] Assigned Heart and Vascular Provider 09/09/22 10/06/22 Trudi Grayson APRN [facility] [address] [address] Assigned Heart and Vascular Provider 10/07/22 Steven Canchola MD [address] [place] [address] Cardiovascular Disease 07/12/23 documented as of this encounter
--- OUTSIDE RECORDS SUMMARY | 2023-10-12 09:51 | XMS_ITS | Encounter Summary ---
Author Name Unknown Organization [place] Address [address] [place] [address] Care Team Providers Care Database Management Specialist Name Role Phone Graham Licona MD Primary Care Provider [phone] Trudi Grayson APRN ASSISTANT FOOD SERVICE DIRECTOR Unavailable [phone] Reason for Visit * Reason Onset Date Comments Orders 12/26/2022 Needs lab order for A1C Encounter Details Date Type Department Care Team (Late st Contact Info) Description 12/26/2022 Telephone [facility] [address] [facility] [address] [place] [phone] Trudi Grayson APRN ASSISTANT FOOD SERVICE DIRECTOR [address] [facility] [place] [address] Orders (Needs lab order for A1C) Social History Tobacco Use Types Packs/Day Years [...] encounter Miscellaneous Notes * Telephone Encounter - Jen Alarcon RN - 12/26/2022 2:11 PM CDT Call placed to patient, patient stated his PCP is requesting A1C be drawn. Requested that patient call PCP and have his care team place orders for lab. Patient verbalized understanding. Jen Estrella RN 12/26/22 at 2:11 PM * Telephone Encounter - GerrySue boyd - 12/26/2022 1:[address] [facility] Call Center Phone Message May a detailed message be left on voicemail: yes Reason for Call: Order(s): Other: Reason for requested: Order for an A1C test - there is nothing but pt said he got a call to schedule an A1C appt. Date needed:LAMONTE - appt it tomorrow morning at 9 am Provider name: Trudi Grayson Action Taken: Message routed to: [facility] cardio Travel Screening: Not Applicable documented in this encounter Plan of Treatment Upcoming Encounters Date Type Department Care Team (Late st Contact Info) Description 12/19/2023 9:45 AM CDT Office Visit [facility] Heart [address] [place] [address] Trudi Grayson APRN ASSISTANT FOOD SERVICE DIRECTOR [address] [place] [address] Steven Canchola MD [address] [facility] [address] [place] [address] 12/27/2023 Ancillary Procedure [facility] Care [address] [facility] [address] [place] [address] Chris De Leon MD [address] [place] [id number] documented as of this encounter Visit Diagnoses Not on filedocumented in this encounter Care Teams Database Management Specialist Relationship Specialty Start Date End Date Graham Licona MD [facility] [address] [place] [address] PCP - General Family Medicine 06/30/21 Trudi Grayson APRN [facility] [address] [address] Assigned Heart and Vascular Provider 10/07/22 documented as of this encounter
--- OUTSIDE RECORDS SUMMARY | 2023-10-12 09:51 | XMS_ITS | Encounter Summary ---
Author Name Unknown Organization [place] Address [address] [place] [address] Care Team Providers Care Global President Name Role Phone Graham Licona MD Primary Care Provider [phone] Trudi Grayson APRN MOLDED PARTS INSPECTOR Unavailable [phone] Reason for Visit * Reason Onset Date Comments Implantable Devices 01/18/2023 Elevated Hea rtLogic Encounter Details Date Type Department Care Team (Late st Contact Info) Description 01/18/2023 Telephone [facility] [address] [facility] [address] [place] [address] Eve Santos, SIENNA Implantable Devices (Elevated HeartLogic) Social History Tobacco Use Types Packs/Day Years [...] Telephone Encounter - Sintia Muhammad RN - 01/25/2023 8:44 AM CDT Images from the original note were not included. Remote alert received for HeartLogic. Current index of 20, increased slightly from last week's value of 16. Contributing trends are heart sounds (S3 and S3/S1 ratio), thoracic impedance, and respiratory rate. Patient was contacted last week and denied symptoms. He was instructed to call the clinic with any changes. Will continue to monitor at this time and will reach out to patient again if continues to increase. Holden, RN * Telephone Encounter - Charito Huizar RN - 01/18/2023 10:46 AM CDT Pt returned call. Explained that we saw that he may have extra water on board. Asked pt if he had any SOB, swelling in feet, ankles or abdomen. Pt denies symptoms and reports that his daily weights have not gone up, he confirms he is compliant with medications. Instructed pt to call and let us knowimmediately if symptoms present. SH/RN * Telephone Encounter - Eve Santos RN - 01/18/2023 9:04 AM CDT Images from the original note were not included. Alert received from patient's ICD for, HeartLogic??? Heart Failure Index has crossed the alert threshold of 16. The alert recovery threshold is 6. HeartLogic has been steadily increasing since 12/29, measuring at 16 today. Called patient to assess for symptoms. He was not available, but I spoke to his , Morenita, who will have him call the Device RNs when he comes home. GG RN documented in this encounter Plan of Treatment Upcoming Encounters Date Type Department Care Team (Late st Contact Info) Description 12/19/2023 9:45 AM CDT Office Visit [facility] [place] [address] [place] [phone] Trudi Grayson APRN MOLDED PARTS INSPECTOR [address] [id number] Steven Canchola MD [address] [place] [address] 12/27/2023 Ancillary Procedure [facility] [address] [facility] [address] [place] [phone] Chris De Leon MD [address] [place] [address] documented as of this encounter Visit Diagnoses Not on filedocumented in this encounter Care Teams Global President Relationship Specialty Start Date End Date Graham Licona MD [facility] [address] [place] [address] PCP - General Family Medicine 06/30/21 Trudi Grayson APRN MOLDED PARTS INSPECTOR [address] [address] Assigned Heart and Vascular Provider 10/07/22 documented as of this encounter
--- OUTSIDE RECORDS SUMMARY | 2023-10-12 09:51 | XMS_ITS | Encounter Summary ---
Author Name Unknown Organization [place] Address [address] [place] [address] Care Team Providers Care Gateman Name Role Phone Graham Licona MD Primary Care Provider [phone] Trudi Grayson APRN OPERATOR COATING FURNACE Unavailable [phone] Reason for Visit * CV Testing (Routine) - Closed Specialty Diagnoses / Procedures Referred By Contnghia t Referred To Contact Diagnoses Cardiac pacemaker in situ Procedures Cardiac Device Check - Remote Timothy Smith MD [facility] [address] [place] [address] Referral ID Status Reason Start Date Expiration Date Visits Re quested Visits Authorized [id number] Closed 08/16/2022 08/16/2023 100 100 Encounter Details Date Type Department Care Team (Latest Contact Info) Description 03/05/2023 Ancillary Procedure [facility] Care [address] [facility] [address] [place] [phone] Cardiac pacemaker in situ Social History Tobacco [...] Description 12/19/2023 9:45 AM CDT Office Visit [facility] Heart [facility] [address] [place] [phone] Trudi Grayson APRN CNP [address] [place] [address] Steven Canchola MD [address] [place] [address] 12/27/2023 Ancillary Procedure [facility] [address] [facility] [address] [place] [phone] Chris De Leon MD [address] [place] [address] documented as of this encounter Procedures Procedure Name Priority Date/Time Associated Diagnosis Comments INTERROGATION DEVICE EVAL REMOTE ICD UP TO 90 Routine 03/05/2023 10:17 AM CDT Cardiac pacemaker in situ documented in this encounter Results * INTERROGATION DEVICE EVAL REMOTE ICD UP TO 90 (03/05/2023 10:17 AM CDT) Date Time Interrogation Session [id number] [employer] Implantable Pulse Generator Bulk Tank Car Unloader [employer] Implantable Pulse Generator Model D432 RESONATE EL ICD [employer] Implantable Pulse Generator Serial Number [id number] [employer] Type Interrogation Session Remote [employer] Clinic Name [facility] [employer] Implantable Pulse Generator Type Defibrillator [employer] Implantable Pulse Generator Implant Date 20210704 [employer] Implantable Lead Bulk Tank Car Unloader [employer] Implantable Lead Model 0272 [place] 4-Site S [employer] Implantable Lead Serial Number [id number] [employer] Implantable Lead Implant Date 20210704 [employer] [...] ms [employer] Lead Channel Setting Pacing Amplitude 2.6 V [employer] Lead Channel Setting Pacing Capture [...] 400 ms [employer] Lead Channel Impedance Value 510 ohm [employer] Lead Channel Pacing Threshold Amplitude 1.2 V [employer] Lead Channel Pacing Threshold Pulse Width 0.4 ms [employer] Battery Date Time of Measurements [employer] Battery Status Beginning of Service [employer] Battery Remaining Longevity 156 mo [employer] Battery Remaining Percentage 100 % [employer] Capacitor Charge Type Reformation [employer] Capacitor Last Charge Date Time [id number] [employer] Capacitor Charge Time 8.9 s [employer] Capacitor Charge Type Shock [employer] Capacitor Last Charge Date Time [id number] [employer] Capacitor Charge Time 6.8 s [employer] Capacitor Charge Energy 41 J [employer] Brandon Statistic Date Time Start [employer] Brandon Statistic Date Time End [employer] Brandon Statistic RV Percent Paced 18 % [employer] Therapy Statistic Recent Shocks Delivered [...] Recent Date Time End [employer] Episode Identifier [id number] [employer] Episode Type Category Periodic EGM [employer] Episode Date Time [id number] [employer] Episode Identifier [id number] [employer] Episode Type Category Other [employer] Episode Date Time [id number] [employer] Anatomical Region Laterality Modality Other 03/05/2023 1:07 AM CDT Narrative 03/05/2023 2:10 PM CDT [employer] Resonate (S) ICD Remote Device Check ?? RAILROAD TRACK MECHANIC: 18 % ?? Mode: VVIR5 0-130 ?? Presenting Rhythm: VS/RAILROAD TRACK MECHANIC at 60s ?? Historical Underlying Rhythm: SB/SR 50-60s Heart Rate: 50-100 but primarily 50-60s ?? Sensing: WNL ?? Pacing Threshold: WNL ?? Impedance: WNL, shock impedance slowly trending up over past year ?? Battery Status: 13y ?? Atrial Arrhythmia: none ?? Ventricular Arrhythmia: none ?? ATP: 0 ?? Shocks: 0 ?? Tachy Therapy History: In process -[employer] Resonate (07/04/21-present) secondary prevention:\X0A09\-ATP: 34 -08/2021\X0A09\-Shock: 6 ??-08/2022 Care Plan: Follow up with cardiology 08/2023. Next remote device check on 06/11/23. SH/RN ?? I have reviewed and interpreted the device interrogation, settings, programming and nurse's summary. The device is functioning within normal device parameters. I agree with the current findings, assessment and plan. Timothy Smith MD [facility] ORDERABLES documented in this encounter Visit Diagnoses Diagnosis Cardiac pacemaker in situ documented in this encounter Care Teams Gateman Relationship Specialty Start Date End Date Graham Licona MD [facility] [address] [place] [address] PCP - General Family Medicine 06/30/21 Trudi Grayson APRN OPERATOR COATING FURNACE [address] [place] [address] Assigned Heart and Vascular Provider 10/07/22 documented as of this encounter
--- OUTSIDE RECORDS SUMMARY | 2023-10-12 09:51 | XMS_ITS | Encounter Summary ---
Author Name Unknown Organization [facility] Address [address] [place] [address] Care Team Providers Care Resource Recovery Engineer Name Role Phone Graham Licona MD Primary Care Provider [phone] Trudi Grayson APRN WATER RECLAMATION SYSTEMS OPERATOR Unavailable [phone] Reason for Referral * CV Testing (Routine) - Pending Review Specialty Diagnoses / Procedures Referred By Mely turner Referred To Contact Diagnoses Sustained VT (ventricular tachycardia) (H) ICD (implantable cardioverter-defib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 Procedures Cardiac Device Check - Remote Chris De Leon MD [address] [place] [address] Referral ID Status Reason Start Date Expiration Date V isits Requested Visits Authorized [id number] Pending Review 06/11/2023 06/10/2024 250 250 * Consultation (Routine: Next available opening) - Pending Review Specialty Diagnoses / Procedures Referred By Mely turner Referred To Contact Cardiovascular Disease Diagnoses Sustained VT (ventricular tachycardia) (H) ICD (implantable cardioverter-defibrill ator) in place Trudi Grayson APRN WATER RECLAMATION SYSTEMS OPERATOR [address] [place] [address] Referral ID Status Reason Start Date Expiration Date V isits Requested Visits Authorized [id number] Pending Review 06/11/2023 06/10/2024 1 1 Question Answer Follow-up with: Other Road Monkey Reason for follow-up: General Cardiology Scheduling Instructions: [facility] will call you to coordinate your care as prescribed by your provider. If you have concerns about scheduling, please call [phone]. Comments [facility] will call you to coordinate your care as prescribed by your provider. If you have concerns about scheduling, please call [phone]. Reason for Visit * CV Testing (Routine) - Closed Specialty Diagnoses / Procedures Referred By Mely utrner Referred To Contact Diagnoses Cardiac pacemaker in situ Procedures Cardiac Device Check - Remote Basil Guadalupe MD [address] [place] [id number] Referral ID Status Reason Start Date Expiration Date Visits Re quested Visits Authorized [id number] Closed 03/05/2023 03/04/2024 100 100 Encounter Details Date Type Department Care Team (Latest Contact Info) Description 06/11/2023 Ancillary Procedure [facility] [address] [facility] [address] [place] [phone] Basil Guadalupe MD [address] [place] [id number] Sustained VT (ventricular tachycardia) (H) (Primary Dx); Cardiac pacemaker in situ; ICD (implantable cardioverter-defibri llator) in place Social [...] Description 12/19/2023 9:45 AM CDT Office Visit [facility] [place] [address] [facility] [address] [place] [phone] Trudi Grayson APRN WATER RECLAMATION SYSTEMS OPERATOR [address] [place] [id number] Steven Canchola MD [address] [place] [id number] 12/27/2023 Ancillary Procedure [facility] [address] [facility] [address] [place] [phone] Chris De Leon MD [address] [place] [id number] Scheduled Orders Name Type Priority Associated Diagnoses Order Schedule Cardiac Device Check - Remote Implantable Cardiac Device Routine Sustained VT (ventricular tachycardia) (H) ICD (implantable cardioverter-defibr illator) in place 250 Occurrences starting 06/11/2023 until 10/27/2050, 1 completed Scheduled Referrals Name Type Priority Associated Diagnoses Orde r Schedule Follow-Up with Cardiology Referral Routine: Next available opening Sustained VT (ventricular tachycardia) (H) ICD (implantable cardioverter-defibri llator) in place Expected: 08/11/2023 (Approximate), Expires: 06/11/2024 documented as of this encounter Procedures Procedure Name Priority Date/Time Associated Diagnosis Comments INTERROGATION DEVICE EVAL REMOTE ICD UP TO 90 Routine 06/11/2023 11:15 AM CDT Cardiac pacemaker in situ documented in this encounter Results * INTERROGATION DEVICE EVAL REMOTE ICD UP TO 90 (09/13/2023 11:52 AM OFFICE EQUIPMENT MECHANIC) Date Time Interrogation Session [id number] [employer] Implantable Pulse Generator Paedodontist [employer] Implantable Pulse Generator Model D432 RESONATE EL ICD [employer] Implantable Pulse Generator Serial Number [id number] [employer] Type Interrogation Session Remote Scheduled [facility] Clinic Name [facility] [employer] Implantable Pulse Generator Type Defibrillator [employer] Implantable Pulse Generator Implant Date 20210704 [employer] Implantable Lead Paedodontist [employer] Implantable Lead Model 0272 [employer]otak Bells 4-Site S [employer] Implantable Lead Serial Number [id number] [employer] Implantable Lead Implant Date 20210704 [employer] [...] Reformation [employer] Capacitor Last Charge Date Time [id number] [employer] Capacitor Charge Time 8.9 s [employer] [...] Category Periodic EGM [employer] Episode Date Time [id number] [employer] Episode Identifier [id number] [employer] Episode Type Category Other [employer] Episode Date Time [id number] [employer] Anatomical Region Laterality Modality Other 09/13/2023 12:4 1 AM OFFICE EQUIPMENT MECHANIC Narrative 09/25/2023 10:41 AM OFFICE EQUIPMENT MECHANIC [employer] Resonate (S) ICD Remote Device Check AUTOMOBILE SERVICE STATION MANAGER: 17 % ?? Mode: VVIR 50-130 ?? Presenting Rhythm: VS with occasional AUTOMOBILE SERVICE STATION MANAGER ?? Historical Underlying Rhythm: AF 60-80's bpm [...] of VT with ATP - [facility] PPM (5162-6569): sustained VT, prompted upgrade to ICD Care Plan: meets all criteria for q2yr thresholds, will be due 08/2024. Scheduled remote in 3 months. ??OV with Dr. Canchola on 12/19/2023. Sent results and plan via [employer]. EC RN I have reviewed and interpreted the device interrogation, settings, programming and nurse's summary. The device is functioning within normal device parameters. I agree with the current findings, assessment and plan. Chris Hinds MD [facility] CARDIAC SERVICES ORDERABLES * INTERROGATION DEVICE EVAL REMOTE ICD UP TO 90 (06/11/2023 11:15 AM CDT) Date Time Interrogation Session [id number] [employer] Implantable Pulse Generator Paedodontist [employer] Implantable Pulse Generator Model D432 RESONATE EL ICD [employer] Implantable Pulse Generator Serial Number [id number] [employer] Type Interrogation Session Remote [facility] Clinic Name [place] [employer] Implantable Pulse Generator Type Defibrillator [employer] Implantable Pulse Generator Implant Date 20210704 [employer] Implantable Lead Paedodontist [employer] Implantable Lead Model 0272 Endotak Bells 4-Site S [employer] Implantable Lead Serial Number [id number] [employer] Implantable Lead Implant Date 20210704 [employer] [...] 400 ms [employer] Lead Channel Impedance Value 497 ohm [employer] Lead Channel Pacing Threshold Amplitude 1.1 V [employer] Lead Channel Pacing Threshold Pulse Width 0.4 ms [employer] Battery Date Time of Measurements [id number] [employer] Battery Status Beginning of Service [employer] Battery Remaining Longevity 138 mo [employer] Battery Remaining Percentage 98 % [employer] Capacitor Charge Type Reformation [employer] Capacitor Last Charge Date Time [id number] [employer] Capacitor Charge Time 8.9 s [employer] Capacitor Charge Type Shock [employer] Capacitor Last Charge Date Time [id number] [employer] Capacitor Charge Time 6.8 s [employer] Capacitor Charge Energy 41 J [employer] Brandon Statistic Date Time Start [employer] Brandon Statistic Date Time End [id number] [employer] Brandon Statistic RV Percent Paced 18 % [employer] Therapy Statistic Recent Shocks Delivered 0 [employer] Therapy Statistic Recent Shocks Aborted 0 [employer] Therapy Statistic Recent ATP Delivered 0 [employer] Therapy Statistic Recent Date Time Start [employer] Therapy Statistic Recent Date Time End [id number] [employer] Therapy Statistic Total Shocks Delivered 6 [employer] Therapy Statistic Total Shocks Aborted 0 [employer] Therapy Statistic Total ATP Delivered 34 [employer] Therapy Statistic Total Date Time End [id number] [employer] Episode Statistic Recent Count 0 [employer] [...] [employer] Episode Statistic Recent Date Time Start [id number] [employer] Episode Statistic Recent Date Time End [id number] [employer] Episode Statistic Recent Date Time Start [id number] [employer] Episode Statistic Recent Date Time End [id number] [employer] Episode Statistic Recent Date Time Start [id number] [employer] Episode Statistic Recent Date Time End [id number] [employer] Episode Statistic Recent Date Time Start [id number] [employer] Episode Statistic Recent Date Time End [id number] [employer] Episode Statistic Recent Date Time Start [employer] Episode Statistic Recent Date Time End [id number] [employer] Episode Identifier [id number] [employer] Episode Type Category Periodic EGM [employer] Episode Date Time [id number] [employer] Episode Identifier [id number] [employer] Episode Type Category Other [employer] Episode Date Time [id number] [employer] Anatomical Region Laterality Modality Other 06/11/2023 12:4 1 AM CDT Narrative 06/11/2023 1:01 PM CDT [employer] Resonate (S) ICD Remote Device Check ?? AUTOMOBILE SERVICE STATION MANAGER: 18 % ?? Mode: VVIR 50-130 ?? Presenting Rhythm: VS and AUTOMOBILE SERVICE STATION MANAGER ?? Historical Underlying Rhythm: AF 60-80's bpm (08/16/2022) Heart Rate: good variability ?? Sensing: WNL ?? Pacing Threshold: WNL ?? Impedance: WNL ?? Battery Status: 11.5 yrs estimated longevity ?? Atrial Arrhythmia: chronic AF, on eliquis ?? Ventricular Arrhythmia: 0, on amiodarone for VT ATP: 0 ?? Shocks: 0 ?? Other: Heart Logic 1 Tachy Therapy History: - Resonate (2020-present): \X0A09\- 12/2021: 14 VT episodes with ATP and shocks\X0A09\- Jul and Aug 2021: 4 episodes of VT with ATP - [facility] PPM ([id number]): sustained VT, prompted upgrade to ICD Care Plan: pt was due to see cardiology in 03/2023, it was not scheduled, entered new order. ?? Meets all criteria for 2q yrs thresholds. Scheduled remote in 3 months. ??Called pt with results and plan. EC RN I have reviewed and interpreted the device interrogation, settings, programming and nurse's summary. The device is functioning within normal device parameters. I agree with the current findings, assessment and plan. 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
== END 2023-10-12 09:44 | disposition home or self-care (01) ==
PROVIDERS: PCP Family Medicine; Visit Provider Family Medicine
DX: E78.5 Hyperlipidemia, unspecified (principal); I10 Essential (primary) hypertension; N18.30 Chronic kidney disease, stage 3 unspecified; E03.9 Hypothyroidism, unspecified; D64.9 Anemia, unspecified; E13.9 Other specified diabetes mellitus without complications
CPT/HCPCS: 80061; 84439; 84443

== ENCOUNTER 2023-10-19 09:08 | Outpatient (CLI) | payer MEDICARE, BC, SELFPAY | END 2023-10-19 09:09 | disposition home or self-care (01) | LOC: WOUND 09:09 | PROVIDERS: PCP Family Medicine; Visit Provider Physician Assistant | DX: S81.812A Laceration without foreign body, left lower leg, initial encounter (principal); Z48.02 Encounter for removal of sutures; I87.2 Venous insufficiency (chronic) (peripheral); L97.818 Non-pressure chronic ulcer of other part of right lower leg with other specified severity | CPT/HCPCS: 97597; 97598; G0463 ==

== ENCOUNTER 2023-10-20 22:54 | Outpatient (CLI) | payer MEDICARE, BC, SELFPAY ==
--- OUTSIDE RECORDS SUMMARY | 2023-10-22 09:41 | XMS_ITS | Encounter Summary ---
Author Name Unknown Organization [facility] Address [address] [place] [address] Care Team Providers Care Descriptive Catalog Librarian Name Role Phone Graham Licona MD Primary Care Provider [phone] Trudi Grayson APRN REORDERING CLERK Unavailable [phone] Steven Canchola MD Unavailable + Encounter Details Date Type Department Care Team (Late st Contact Info) Description 08/07/2023 Telephone [facility] [address] [place] [phone] Eve Santos, SIENNA Social History Tobacco [...] Grayson APRN CNP - 08/07/2023 11:52 AM FUGITIVE INVESTIGATOR Reviewed results of heart logic. In the setting of no heart failure symptoms, shortness of breath, weight gain, or significant edema. No new recommendations at this time. Continue to monitor symptoms closely. Thanks Trudi TIVE INVESTIGATOR * Telephone Encounter - Eve Santos RN [...] an update to Trudi Grayson. GG RN TIVE INVESTIGATOR documented in this encounter Plan of Treatment Upcoming Encounters Date Type Department Care Team (Late st Contact Info) Description 12/19/2023 9:45 AM CDT Office Visit [facility] [address] [facility] [address] [place] [phone] Trudi Grayson APRN REORDERING CLERK [address] [place] [id number] Setven Canchola MD [address] [place] [address] [place] [id number] 12/27/2023 Ancillary Procedure [facility] [address] [place] [phone] Chris De Leon MD [address] [place] [id number] documented as of this encounter Visit Diagnoses Not on filedocumented in this encounter Care Teams Descriptive Catalog Librarian Relationship Specialty Start Date End Date Graham Licona MD [facility] [address] [place] [address] PCP - General Family Medicine 06/30/21 Trudi Grayson APRN REORDERING CLERK [address] [id number] Assigned Heart and Vascular Provider 10/07/22 Steven Canchola MD [address] [place] [address] [place] [id number] Cardiovascular Disease 07/12/23 documented as of this encounter
--- OUTSIDE RECORDS SUMMARY | 2023-10-22 09:41 | XMS_ITS | Encounter Summary ---
Author Name Unknown Organization [place] Address [address] [place] [address] Care Team Providers Care Slab Tripper Name Role Phone Graham Licona MD Primary Care Provider [phone] Trudi Grayson APRN RN ON SITE Unavailable Reason for Referral * CV Testing (Routine) - Pending Review Specialty Diagnoses / Procedures Referred By Mely turner Referred To Contact Diagnoses Sustained VT (ventricular tachycardia) (H) ICD (implantable cardioverter-defib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 Procedures Cardiac Device Check - Remote Chris De Leon MD [address] [place] [address] Referral ID Status Reason Start Date Expiration Date V isits Requested Visits Authorized [id number] Pending Review 06/11/2023 06/10/2024 250 250 * Consultation (Routine: Next available opening) - Pending Review Specialty Diagnoses / Procedures Referred By Mely turner Referred To Contact Cardiovascular Disease Diagnoses Sustained VT (ventricular tachycardia) (H) ICD (implantable cardioverter-defibrill ator) in place Trudi Grayson APRN RN ON SITE [address] [place] [address] Referral ID Status Reason Start Date Expiration Date V isits Requested Visits Authorized [id number] Pending Review 06/11/2023 06/10/2024 1 1 Question Answer Follow-up with: Other Branner Machine Tender Reason for follow-up: General Cardiology Scheduling Instructions: [facility] will call you to coordinate your care as prescribed by your provider. If you have concerns about scheduling, please call [phone]. Comments [facility] will call you to coordinate your care as prescribed by your provider. If you have concerns about scheduling, please call [phone]. Reason for Visit * CV Testing (Routine) - Closed Specialty Diagnoses / Procedures Referred By Mely turner Referred To Contact Diagnoses Cardiac pacemaker in situ Procedures Cardiac Device Check - Remote Basil Guadalupe MD [address] [place] [address] Referral ID Status Reason Start Date Expiration Date Visits Re quested Visits Authorized [id number] Closed 03/05/2023 03/04/2024 100 100 Encounter Details Date Type Department Care Team (Latest Contact Info) Description 06/11/2023 Ancillary Procedure [facility] [address] [facility] [address] [place] [phone] Basil Guadalupe MD [address] [place] [id number] Sustained VT (ventricular tachycardia) (H) (Primary Dx); [...] Description 12/19/2023 9:45 AM CDT Office Visit [facility] [place] [address] [place] [phone] Trudi Grayson APRN RN ON SITE [address] [place] [address] Steven Canchola MD [address] [place] [id number] 12/27/2023 Ancillary Procedure [facility] [address] [facility] [address] [place] [address] Chris De Leon MD [address] [place] [id number] Scheduled Orders Name Type Priority Associated Diagnoses [...] ICD UP TO 90 (09/13/2023 11:52 AM DINING SERVER) Date Time Interrogation Session [id number] [employer] Implantable Pulse Generator Efficiency Expert [place] [employer] Implantable Pulse Generator Model D432 RESONATE EL ICD [employer] Implantable Pulse Generator Serial Number [id number] [employer] Type Interrogation Session Remote Scheduled [facility] Clinic Name [facility] [employer] Implantable Pulse Generator Type Defibrillator [employer] Implantable Pulse Generator Implant Date 20210704 [employer] Implantable Lead Efficiency Expert [place] [employer] Implantable Lead Model 0272 [place] [place] 4-Site S [employer] Implantable Lead Serial Number [id number] [employer] Implantable Lead Implant Date 20210704 [employer] [...] Reformation [employer] Capacitor Last Charge Date Time [id number] [employer] Capacitor Charge Time 8.9 s [employer]IC [...] Category Periodic EGM [employer] Episode Date Time [id number] [employer] Episode Identifier [id number] [employer] Episode Type Category Other [employer] Episode Date Time [id number] [employer] Anatomical Region Laterality Modality Other 09/13/2023 12:4 1 AM DINING SERVER Narrative 09/25/2023 10:41 AM DINING SERVER scroll kit Scientific Resonate (S) ICD Remote Device Check CROSSING WATCHMAN: 17 % ?? Mode: VVIR 50-130 ?? Presenting Rhythm: VS with occasional CROSSING WATCHMAN ?? Historical Underlying Rhythm: AF 60-80's bpm [...] of VT with ATP - Essentio PPM ([id number]): sustained VT, prompted upgrade to ICD Care Plan: meets all criteria for q2yr thresholds, will be due 08/2024. Scheduled remote in 3 months. ??OV with Dr. Canchola on 12/19/2023. Sent results and plan via APR. EC RN I have reviewed and interpreted the device interrogation, settings, programming and nurse's summary. The device is functioning within normal device parameters. I agree with the current findings, assessment and plan. Chris Hinds MD CV CARDIAC SERVICES ORDERABLES * INTERROGATION DEVICE EVAL REMOTE ICD UP TO 90 (06/11/2023 11:15 AM CDT) Date Time Interrogation Session [id number] [employer] Implantable Pulse Generator Efficiency Expert [place] [employer] Implantable Pulse Generator Model D432 RESONATE EL ICD [employer] Implantable Pulse Generator Serial Number [id number] [employer] Type Interrogation Session Remote [facility] Clinic Name [place] [employer] Implantable Pulse Generator Type Defibrillator [employer] Implantable Pulse Generator Implant Date 20210704 [employer] Implantable Lead Efficiency Expert [place] [employer] Implantable Lead Model 0272 [place] [place] 4-Site S [employer] Implantable Lead Serial Number [id number] [employer] Implantable Lead Implant Date 20210704 [employer] [...] ms [employer] Battery Date Time of Measurements [id number] [employer] Battery Status Beginning of Service [employer] Battery Remaining Longevity 138 mo [employer] Battery Remaining Percentage 98 % [employer] Capacitor Charge Type Reformation [employer] Capacitor Last Charge Date Time [id number] [employer] Capacitor Charge Time 8.9 s [employer] Capacitor Charge Type Shock [employer] Capacitor Last Charge Date Time [id number] [employer] Capacitor Charge Time 6.8 s [employer] Capacitor Charge Energy 41 J [employer] Brandon Statistic Date Time Start [employer] Brandon Statistic Date Time End [id number] [employer] Brandon Statistic RV Percent Paced 18 % [employer] Therapy Statistic Recent Shocks Delivered 0 [employer] Therapy Statistic Recent Shocks Aborted 0 [employer] Therapy Statistic Recent ATP Delivered 0 [employer] Therapy Statistic Recent Date Time Start [employer] Therapy Statistic Recent Date Time End [id number] [employer] Therapy Statistic Total Shocks Delivered 6 [employer] Therapy Statistic Total Shocks Aborted 0 [employer] Therapy Statistic Total ATP Delivered 34 [employer] Therapy Statistic Total Date Time End [id number] [employer] Episode Statistic Recent Count 0 MEDTR[employer]IC [...] [employer] Episode Statistic Recent Date Time Start [id number] [employer] Episode Statistic Recent Date Time End [id number] [employer] Episode Statistic Recent Date Time Start [id number] [employer] Episode Statistic Recent Date Time End [id number] [employer] Episode Statistic Recent Date Time Start [id number] [employer] Episode Statistic Recent Date Time End [id number] [employer] Episode Statistic Recent Date Time Start [id number] [employer] Episode Statistic Recent Date Time End [id number] [employer] Episode Statistic Recent Date Time Start [employer] Episode Statistic Recent Date Time End [id number] [employer] Episode Identifier [id number] [employer] Episode Type Category Periodic EGM [employer] Episode Date Time [id number] [employer] Episode Identifier [id number] [employer] Episode Type Category Other [employer] Episode Date Time [id number] [employer] Anatomical Region Laterality Modality Other 06/11/2023 12:4 1 AM CDT Narrative 06/11/2023 1:01 PM CDT [place] [employer] Resonate (S) ICD Remote Device Check ?? CROSSING WATCHMAN: 18 % ?? Mode: VVIR 50-130 ?? Presenting Rhythm: VS and CROSSING WATCHMAN ?? Historical Underlying Rhythm: AF 60-80's bpm [...] of VT with ATP - Essentio PPM ([id number]): sustained VT, prompted upgrade to ICD Care [...] place documented in this encounter Care Teams Slab Tripper Relationship Specialty Start Date End Date Graham Licona MD [facility] [address] [place] [address] PCP - General Family Medicine 06/30/21 Trudi Grayson APRN RN ON SITE [address] [place] [address] [id number] Assigned Heart and Vascular Provider 10/07/22 documented as of this encounter
--- OUTSIDE RECORDS SUMMARY | 2023-10-22 09:41 | XMS_ITS | Encounter Summary ---
Author Name Unknown Organization [place] Address [address] [place] [address] Care Team Providers Care Maintainer Sewer And Waterworks Name Role Phone Graham Licona MD Primary Care Provider [phone] Trudi Grayson APRN GRIEVANCE COORDINATOR Unavailable [phone] Steven Canchola MD Unavailable + Reason for Visit * CV Testing (Routine) - Pending Review Specialty Diagnoses / Procedures Referred By Contac t Referred To Contact Diagnoses Sustained VT (ventricular tachycardia) (H) ICD (implantable cardioverter-defib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 Procedures Cardiac Device Check - Remote Chris De Leon MD [address] [place] [address] Referral ID Status Reason Start Date Expiration Date V isits Requested Visits Authorized [id number] Pending Review 06/11/2023 06/10/2024 250 250 Encounter Details Date Type Department Care Team (Latest Contact Info) Description 09/13/2023 Ancillary Procedure [facility] [address] [place] [phone] Chris De Leon MD [address] [place] [id number] Sustained VT (ventricular tachycardia) (H); ICD (implantable [...] 12/19/2023 9:45 AM CDT Office Visit [facility] [address] [place] [phone] Trudi Grayson APRN GRIEVANCE COORDINATOR [address] [place] [address] Steven Canchola MD [address] [place] [address] 12/27/2023 Ancillary Procedure [facility] [address] [place] [phone] Chris De Leon MD [address] [place] [address] documented as of this encounter Procedures Procedure Name Priority Date/Time Associated Diagnosis Comments INTERROGATION DEVICE EVAL REMOTE ICD UP TO 90 Routine 09/13/2023 11:52 AM ACETYLENE TORCH SOLDERER Sustained VT (ventricular tachycardia) (H) ICD (implantable cardioverter-defib 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 documented in this encounter Results * INTERROGATION DEVICE EVAL REMOTE ICD UP TO 90 (09/13/2023 11:52 AM ACETYLENE TORCH SOLDERER) Date Time Interrogation Session [id number] [employer] Implantable Pulse Generator Clinical Laboratory Technologist [place] [employer] Implantable Pulse Generator Model D432 RESONATE EL ICD [employer] Implantable Pulse Generator Serial Number [id number] [employer] Type Interrogation Session Remote Scheduled [facility] Clinic Name [facility] [employer] Implantable Pulse Generator Type Defibrillator [employer] Implantable Pulse Generator Implant Date 20210704 [employer] Implantable Lead Clinical Laboratory Technologist [place] [employer] Implantable Lead Model 0272 Endot[address] [place] 4-Site S [employer] Implantable Lead Serial Number [id number] [employer] Implantable Lead Implant Date 20210704 [employer]IC [...] Reformation [employer] Capacitor Last Charge Date Time [id number] [employer] Capacitor Charge Time 8.9 s [employer] Capacitor Charge Type Shock [employer] Capacitor Last Charge Date Time [id number] [employer] Capacitor Charge Time 6.8 s MEDTRONIC [...] MEDTRONIC Episode Statistic Recent Date Time End [id number] [employer] Episode Statistic Recent Date Time Start [employer]IC Episode Statistic Recent Date Time End [employer]IC Episode Statistic Recent Date Time Start [employer] Episode Statistic Recent Date Time End [employer] Episode Identifier [id number] [employer] Episode Type Category Periodic EGM [employer] Episode Date Time [id number] [employer] Episode Identifier [id number] [employer] Episode Type Category Other [employer] Episode Date Time [id number] [employer] Anatomical Region Laterality Modality Other 09/13/2023 12:4 1 AM ACETYLENE TORCH SOLDERER Narrative 09/25/2023 10:41 AM ACETYLENE TORCH SOLDERER Duable Chinese Resonate (S) ICD Remote Device Check WARP PLACER: 17 % ?? Mode: VVIR 50-130 ?? Presenting Rhythm: VS with occasional WARP PLACER ?? Historical Underlying Rhythm: AF 60-80's bpm (08/16/2022) Heart Rate: adequate variability ?? Sensing: WNL ?? Pacing Threshold: WNL ?? Impedance: WNL ?? Battery Status: 12.5 yrs estimated longevity, 8.9 second charge time ?? Atrial Arrhythmia: chronic AF, on eliquis ?? Ventricular Arrhythmia: none. On amiodarone for VT ?? ATP: 0 ?? Shocks: 0 ?? Other: Heart Logic 0 Tachy Therapy [facility] for secondary prevention ---- 12/2021: 14 VT episodes with ATP and shocks ---- Jul and Aug 2021: 4 episodes of VT with ATP - Essentio PPM ([id number]): sustained VT, prompted upgrade to ICD Care Plan: meets all criteria for q2yr thresholds, will be due 08/2024. Scheduled remote in 3 months. ??OV with Dr. Canchola on 12/19/2023. Sent results and plan via ClearView™ Audio. EC RN I have reviewed and interpreted [...] place documented in this encounter Care Teams Maintainer Sewer And Waterworks Relationship Specialty Start Date End Date Graham Licona MD [facility] [address] [place] [address] PCP - General Family Medicine 06/30/21 Trudi Grayson APRN GRIEVANCE COORDINATOR [address] [place] [address] Assigned Heart and Vascular Provider 10/07/22 Steven Canchola MD [address] [place] [address] Cardiovascular Disease 07/12/23 documented as of this encounter
--- OUTSIDE RECORDS SUMMARY | 2023-10-22 09:41 | XMS_ITS | Data Portability ---
Author Name Unknown Address [address] [place] [address] Phone [phone] Organization [facility], [facility] Address [address] [place] [address] Care Team Providers Care Tie Knitter Helper Name Role Phone KIRT AKINSORY Primary Care Provider Assessment Encounter Date Assessment Date Assessment LastModified [...] , dipstick 2021 022 ssamb [facility], [address] [place], [address], 10:24:02 Referral None recorded. Procedures None recorded. [...] Available [facility] [address], [place], [address], 09/07/2022 10:23:24 09/07/20 22 09/07/2022 urina lysis , dipst ick Clarity-Stat us Clear Not Available [facility] [address], [place], [address], 09/07/2022 10:23:24 09/07/20 22 09/07/2022 urina lysis , dipst ick pH-Status 6.5 Not Available [facility] [address], [place], [address], 09/07/2022 10:23:24 07/26/20 22 06/06/2022 US, renal No observ ation record ed. Not Available 07/26/2022 15:43:15 07/26/20 22 07/26/2022 CT, urogr am No observ ation record ed. Not Available 07/26/2022 15:44:21 Result Notes None recorded. Problems Name Status Onset Date Resolution Date Notes Provider Name and Address Organization Details Recorded Time Mass of urinary bladder Active 09/07/[address] MD, PHD [address] [place] [address], [phone], [facility] 09/07/2022 11:08:48 Lower urinary tract symptoms due to benign prostatic hypertrophy Active 09/07/[address] MD, PHD [address] [place] [address], [phone], [facility] 09/07/2022 11:08:53 Problem Notes None recorded. Procedures Surgical History Date Name Laterality Status Provider Name and Address Organization Details Recorded Time 2 Cystoscopy- male completed Felice Acosta MD, PHD [address] [place] [address],[address], [phone], [facility] 09/07/2022 11:08:37 2 Bladder Scan completed [...] Updated DateTime 09/07/2022 180.34 cm 33.3 kg/m2 643164.58 g Jeffrey goldstein [facility] 09/07/2022 10:19:27 Social History Question Answer Notes LastModified by Organizat ion Details LastModified Time Tobacco Smoking Status Never Smoker Jeffrey goldstein [facility] 09/07/2022 10:22:32 What Was The Date Of Your Most Recent Tobacco Screening? 09/07/2022 [facility] Information not available 09/07/2022 Sex: Male Functional Status None recorded. Mental Status None recorded. Family History Nothing Reported. Medical History Condition Response High Blood Pressure Y Diabetes Y Bleeding Disorder Y High Cholesterol Y Heart Disease Y Past Encounters Encounter ID Performer Location Encounter Start Date Encounter Closed Date Diagnosis/Indication [id number] Felice Acosta MD, PHD [facility] [address] [place] [address] 09/07/2022 09:51:45 09/13/2022 10:52:14 Nocturia Lower urinary [...] Name 09/07/2022 1 [place] [id number] Haris Covingtonolive [id number] Haris Covingtonolive Notes Date Note Type Note [...] bladder ca Felice Acosta MD, PHD [address], [place], [address], [facility] 09/07/2022 11:10:42
--- OUTSIDE RECORDS SUMMARY | 2023-10-22 09:41 | XMS_ITS | Referral Summary ---
Author Name Unknown Organization [place] Address [address] [facility] [place] [address] Care Team Providers Care Culinary Internship Name Role Phone Graham Licona MD Primary Care Provider [phone] Trudi Grayson APRN VACUUM CLEANER MECHANIC Unavailable [phone] Steven Canchola MD Unavailable + Encounters Date Type Department Care Team Description 09/13/2023 Ancillary Procedure [facility] [address] [place] [address] Chris De Leon MD Sustained VT (ventricular tachycardia) (H); 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 08/08/2023 Telephone [facility]tico[facility] [address] [place] [address] Ann Leos, SIENNA Direct Oral Anticoagulant 08/07/2023 Telephone [facility] [address] [place] [phone] Eve Santos RN from Last 3 Months [...] Active fluticasone (FLONASE) 50 MCG/ACT nasal spray [place] 1 spray into both nostrils daily 0 [...] MG sublingual tabletIndications: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 Place 1 tablet [...] Comments Blood Pressure 104/66 09/28/2022 12:58 PM ELECTRICAL INSTRUMENT REPAIRER Pulse 64 09/28/2022 12:58 PM ELECTRICAL INSTRUMENT REPAIRER Temperature 36.6 ??C (97.9 ??F) 07/04/2021 12:03 PM C DT Respiratory Rate 16 07/04/2021 4:00 PM CDT Oxygen Saturation 97% 09/28/2022 12:58 PM ELECTRICAL INSTRUMENT REPAIRER Inhaled Oxygen Concentration - - Weight 111.1 kg (245 lb) 09/28/2022 12:58 PM ELECTRICAL INSTRUMENT REPAIRER Height 180.3 cm (5' 11) 09/28/2022 12:58 PM ELECTRICAL INSTRUMENT REPAIRER Body Mass Index 34.17 09/28/2022 12:58 PM ELECTRICAL INSTRUMENT REPAIRER Plan of Treatment Upcoming Encounters Date Type Department Care Team (Late st Contact Info) Description 12/19/2023 9:45 AM CDT Office Visit [facility] Heart [facility] [address] [place] [address] Trudi Grayson, FIRE TRUCK DRIVER VACUUM CLEANER MECHANIC [address] [address] Steven Canchola MD [address] [place] [address] 12/27/2023 Ancillary Procedure [facility] [address] [place] [address] Chris De Leon MD [address] [place] [id number] Medical Devices Implanted Type Area Sap Bpc Architect Device Identifier Shelf Expiration Date Model / Serial / Lot Icd Resonate El Vr Df4 - [id number] Implanted:Qty : 1 on 07/04/2021 at [facility] ICD [employer] 09/09/2021 D432 / [id number] / [id number] Lead Wires- Right Atrium-02/04/20 16 Implanted:03/2016 by Timothy Simth MD (Quantity not on file) Explanted:12/2020 (Quantity not on file) Lead Wires- Right Atrium [employer] 2087TC-52 / [id number] / Lead Wires- Right Ventricle-02/03 Implanted:03/2016 by Timothy Smith MD (Quantity not on file) Explanted:12/2020 (Quantity not on file) Lead Wires- Right Ventricle [employer] 8TC-58 / [id number] / Lead Downs Endotak Df4 Af 59 Cm 0272 - [id number] Implanted:Qty : 1 on 07/04/2021 at [facility] Leads [employer] 04/07/2023 0272 / [id number] / [id number] Pacemaker-Dino Sci Implanted:03/2016 by Timothy Smith MD (Quantity not on file) Explanted:12/2020 (Quantity not on file) Pacemaker [employer] [address] L121 / [id number] / Procedures Procedure Name Priority Date/Time Associated Diagnosis Comments INTERROGATION DEVICE EVAL REMOTE ICD UP TO 90 Routine 09/13/2023 11:52 AM ELECTRICAL INSTRUMENT REPAIRER Sustained VT (ventricular tachycardia) (H) ICD (implantable cardioverter-defib 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 from Last 3 Months Results * INTERROGATION DEVICE EVAL REMOTE ICD UP TO 90 (09/13/2023 11:52 AM ELECTRICAL INSTRUMENT REPAIRER) Date Time Interrogation Session [id number] [employer] Implantable Pulse Generator Sap Bpc Architect [employer] Implantable Pulse Generator Model D432 RESONATE EL ICD [employer]IC Implantable Pulse Generator Serial Number [id number] [employer]IC Type Interrogation Session Remote Scheduled [facility] Clinic Name [facility] [employer] Implantable Pulse Generator Type Defibrillator [employer]IC Implantable Pulse Generator Implant Date 20210704 MED[employer]IC Implantable Lead Sap Bpc Architect [employer] Implantable Lead Model 0272 Endotak Downs 4-Site S [employer]TRONIC Implantable Lead Serial Number [id number] MEDTRONIC Implantable Lead Implant Date 20210704 MEDTRONIC [...] ms MEDTRONIC Battery Date Time of Measurements [id number] [employer] Battery Status Beginning of Service [employer] Battery Remaining Longevity 150 mo [employer]IC Battery Remaining Percentage 100 % [employer] Capacitor Charge Type Reformation [employer]IC Capacitor Last Charge Date Time [id number] [employer]IC Capacitor Charge Time 8.9 s MEDTRONIC Capacitor Charge Type Shock MEDTRONIC Capacitor Last Charge Date Time [id number] MED[employer]IC Capacitor Charge Time 6.8 s MEDTRONIC Capacitor Charge Energy 41 J MEDTRONIC Brandon Statistic Date Time Start [id number] [employer]ONIC Brandon Statistic Date Time End MEDTRONIC [...] MEDTRONIC Therapy Statistic Total Date Time End [id number] MEDTRONIC Episode Statistic Recent Count 0 MEDTRONIC [...] MEDTRONIC Episode Statistic Recent Date Time Start [id number] MEDTRONIC Episode Statistic Recent Date Time End [id number] MEDTRONIC Episode Statistic Recent Date Time Start [id number] MEDTRONIC Episode Statistic Recent Date Time End [id number] MEDTRONIC Episode Statistic Recent Date Time Start [id number] MEDTRONIC Episode Statistic Recent Date Time End MEDTRONIC Episode Identifier [id number] MED[employer]ONIC Episode Type Category Periodic EGM [employer]ONIC Episode Date Time [id number] [employer]IC Episode Identifier [id number] [employer]IC Episode Type Category Other MEDTRONIC Episode Date Time [id number] [employer] Anatomical Region Laterality Modality Other 09/13/2023 12:4 1 AM ELECTRICAL INSTRUMENT REPAIRER Narrative 09/25/2023 10:41 AM ELECTRICAL INSTRUMENT REPAIRER [employer] Resonate (S) ICD Remote Device Check BACKEND PYTHON DEVELOPER: 17 % ?? Mode: VVIR 50-130 ?? Presenting Rhythm: VS with occasional BACKEND PYTHON DEVELOPER ?? Historical Underlying Rhythm: AF 60-80's [...] of VT with ATP - Essentio PPM (4802-5587): sustained VT, prompted upgrade to ICD Care Plan: meets all criteria for q2yr thresholds, will be due 08/2024. Scheduled remote in 3 months. ??OV with Dr. Canchola on 12/19/2023. Sent results and plan via Telsima. EC RN I have reviewed and interpreted the device interrogation, settings, programming and nurse's summary. The device is functioning within normal device parameters. I agree with the current findings, assessment and plan. Chris Hinds MD [facility] CARDIAC SERVICES ORDERABLES from Last 3 Months Advance Directives For more information, please contact: [phone] Latest Code Status on File Code Status Date Activated Date Inactivated Comments Full Code 02/04/2016 9:52 AM 07/04/2021 11:49 AM Code Status History Code Status Date Activated Date Inactivated Comments Full Code 02/02/2016 9:20 PM 02/04/2016 9:52 AM Full Code 02/01/2012 2:37 PM 02/04/2012 6:16 PM Care Teams Culinary Internship Relationship Specialty Start Date End Date Graham Licona MD [facility] [address] [place] [address] PCP - General Family Medicine 06/30/21 Trudi Grayson APRN VACUUM CLEANER MECHANIC [address] [address]87[address] Assigned Heart and Vascular Provider 10/07/22 Steven Canchola MD [address] [place] [address] Cardiovascular Disease 07/12/23
--- OUTSIDE RECORDS SUMMARY | 2023-10-22 09:41 | XMS_ITS | Clinical Summary ---
Author Name Unknown Organization [place] Address [facility] 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 08/08/2023 Telephone [facility] Anticoagulation [facility] [address] [place] [address] Ann Leos, RN Direct Oral Anticoagulant 08/07/2023 Telephone [facility] [address] [place] [address] Eve Santos, SIENNA from Last 3 Months [...] Comments Blood Pressure 104/66 09/28/2022 12:58 PM HOG FEEDER Pulse 64 09/28/2022 12:58 PM HOG FEEDER Temperature 36.6 ??C (97.9 ??F) 07/04/2021 12:03 PM C DT Respiratory Rate 16 07/04/2021 4:00 PM CDT Oxygen Saturation 97% 09/28/2022 12:58 PM HOG FEEDER Inhaled Oxygen Concentration - - Weight 111.1 kg (245 lb) 09/28/2022 12:58 PM HOG FEEDER Height 180.3 cm (5' 11) 09/28/2022 12:58 PM HOG FEEDER Body Mass Index 34.17 09/28/2022 12:58 PM HOG FEEDER Plan of Treatment Upcoming Encounters Date Type Department Care Team (Late st Contact Info) Description 12/19/2023 9:45 AM CDT Office Visit [facility] [address] [place] [address] [place] [phone] Trudi Grayson APRN LEATHER STAKER [address] [place] [address] Steven Canchola MD [address] [place] [address] 12/27/2023 Ancillary Procedure [facility] [address] [facility] [address] [place] [phone] Chris De Leon MD [address] [place] [address] [...] this topic Medical Devices Implanted Type Area Infrastructure Project Manager Device Identifier Shelf Expiration Date Model / Serial / Lot Icd Resonate El Vr Df4 - [id number] Implanted:Qty : 1 on 07/04/2021 at [facility] ICD [employer] 09/09/2021 D432 / [id number] / [id number] Lead Wires- Right Atrium-02/04/20 16 Implanted:03/2016 by Timothy Smith MD (Quantity not on file) Explanted:12/2020 (Quantity not on file) Lead Wires- Right Atrium [employer] 2088TC-52 / [id number] / Lead Wires- Right Ventricle-02/03 Implanted:03/2016 by Timothy Smith MD (Quantity not on file) Explanted:12/2020 (Quantity not on file) Lead Wires- Right Ventricle [employer] 2088TC-58 / [id number] / Lead Soso Endotak Df4 Af 59 Cm 0272 - [id number] Implanted:Qty : 1 on 07/04/2021 at [facility] Leads [employer] 04/07/2023 0272 / [id number] / [id number] Pacemaker-Dino Sci Implanted:03/2016 by Timothy Smith MD (Quantity not on file) Explanted:12/2020 (Quantity not on file) Pacemaker [employer] [address] L121 / [id number] / Procedures Procedure Name Priority Date/Time Associated Diagnosis Comments INTERROGATION DEVICE EVAL REMOTE ICD UP TO 90 Routine 09/13/2023 11:52 AM HOG FEEDER Sustained VT (ventricular tachycardia) (H) ICD (implantable cardioverter-defib 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 from Last 3 Months Results * INTERROGATION DEVICE EVAL REMOTE ICD UP TO 90 (09/13/2023 11:52 AM HOG FEEDER) Date Time Interrogation Session [id number] [employer] Implantable Pulse Generator Infrastructure Project Manager [employer] MED[employer]ONIC Implantable Pulse Generator Model D432 RESONATE EL ICD [employer]IC Implantable Pulse Generator Serial Number [id number] [employer]TRONIC Type Interrogation Session Remote Scheduled [facility] Clinic Name [facility] [employer]IC Implantable Pulse Generator Type Defibrillator MEDTRONIC Implantable Pulse Generator Implant Date 20210704 MEDTRONIC Implantable Lead Infrastructure Project Manager [employer]ONIC Implantable Lead Model 0272 Endotak Soso 4-Site S [employer]TRONIC Implantable Lead Serial Number [id number] MEDTRONIC Implantable Lead Implant Date 20210704 MEDTRONIC [...] Reformation MEDTRONIC Capacitor Last Charge Date Time [id number] MEDTRONIC Capacitor Charge Time 8.9 s MEDTRONIC [...] MEDTRONIC Therapy Statistic Total Date Time End [id number] MEDTRONIC Episode Statistic Recent Count 0 MEDTRONIC [...] MEDTRONIC Episode Statistic Recent Date Time Start [id number] MEDTRONIC Episode Statistic Recent Date Time End [id number] MEDTRONIC Episode Statistic Recent Date Time Start [id number] MEDTRONIC Episode Statistic Recent Date Time End [id number] MEDTRONIC Episode Statistic Recent Date Time Start [id number] MEDTRONIC Episode Statistic Recent Date Time End [id number] MEDTRONIC Episode Statistic Recent Date Time Start [id number] MEDTRONIC Episode Statistic Recent Date Time End [id number] MEDTRONIC Episode Identifier [id number] MEDTRONIC Episode Type Category Periodic EGM MEDTRONIC Episode Date Time [id number] MEDTRONIC Episode Identifier [id number] MEDTRONIC Episode Type Category Other MEDTRONIC Episode Date Time [id number] [employer]IC Anatomical Region Laterality Modality Other 09/13/2023 12:4 1 AM HOG FEEDER Narrative 09/25/2023 10:41 AM HOG FEEDER [employer] Resonate (S) ICD Remote Device Check PIPE PROCESSOR: 17 % ?? Mode: VVIR 50-130 ?? Presenting Rhythm: VS with occasional PIPE PROCESSOR ?? Historical Underlying Rhythm: AF 60-80's bpm [...] of VT with ATP - Essentio PPM (8158-1786): sustained VT, prompted upgrade to ICD Care Plan: meets all criteria for q2yr thresholds, will be due 08/2024. Scheduled remote in 3 months. ??OV with Dr. Canchola on 12/19/2023. Sent results and plan via SMB Suite. EC RN I have reviewed and interpreted the device interrogation, settings, programming and nurse's summary. The device is functioning within normal device parameters. I agree with the current findings, assessment and plan. Chris Hinds MD CV CARDIAC SERVICES ORDERABLES from Last 3 Months Advance Directives For more information, please contact: [phone] Latest Code Status on File Code Status Date Activated Date Inactivated Comments Full Code 02/04/2016 9:52 AM 07/04/2021 11:49 AM Code Status History Code Status Date Activated Date Inactivated Comments Full Code 02/02/2016 9:20 PM 02/04/2016 9:52 AM Full Code 02/01/2012 2:37 PM 02/04/2012 6:16 PM Care Teams Mechanical Design Engineer Relationship Specialty Start Date End Date Graham Licona MD [facility] [address] [place] [address] PCP - General Family Medicine 06/30/21 Trudi Grayson APRN LEATHER STAKER [address] [id number] Assigned Heart and Vascular Provider 10/07/22 Steven Canchola MD [address] [place] [id number] Cardiovascular Disease 07/12/23
--- OUTSIDE RECORDS SUMMARY | 2023-10-22 09:41 | XMS_ITS | Encounter Summary ---
Author Name Unknown Organization [place] Address [address] [facility] [place] [address] Care Team Providers Care Land Classifier Name Role Phone Graham Licona MD Primary Care Provider [phone] Trudi Grayson APRN DIRECTOR OF NUCLEAR MEDICINE Unavailable [phone] Steven Canchola MD Unavailable + Reason for Visit * Reason Onset Date Comments Direct Oral Anticoagulant 08/08/2023 Encounter Details Date Type Department Care Team (Late st Contact Info) Description 08/08/2023 Telephone [facility] [address] [place] [address] Ann Leos RN Direct Oral [...] Juvenal Burnham RN - 08/09/2023 1:16 PM STONEMASON SUPERVISOR Robbyis ordered per Trudi Ruffin guidelines. Patient requests [facility] mail out services. Juvenal Burnham RN August 09, 2023 1:17 PM EMASON SUPERVISOR * Telephone Encounter - Trudi Grayson APRN CNP - 08/09/2023 11:40 AM STONEMASON SUPERVISOR Thanks for the update. Can we make sure we sent a prescription so he does not run out. Thanks Trudi EMASON SUPERVISOR * Telephone Encounter - Juvenal Burnham RN - 08/09/2023 8:19 AM STONEMASON SUPERVISOR Patient states he has not been taking [...] Burnham RN August 09, 2023 8:23 AM EMASON SUPERVISOR * Telephone Encounter - Trudi Grayson APRN CNP - 08/08/2023 5:34 PM STONEMASON SUPERVISOR Please see message below Patient has not been compliant with anticoagulation (refills). Could we please reach out to patientand see if he is faithfully taking Eliquis? If cost of Eliquis is prohibitive, consider switching to Coumadin if agreeable. Thanks Trudi EMASON SUPERVISOR * Telephone Encounter - Ann Leos RN - 08/08/2023 12:19 PM CST ANTICOAGULATION DIRECT ORAL ANTICOAGULANT MONITORING SUBJECTIVE [facility] is evaluating Haris B Rezac's [...] anticoagulation protocol Ann Leos RN Anticoagulation Clinic EMASON SUPERVISOR documented in this encounter Plan of Treatment Upcoming Encounters Date Type Department Care Team (Late st Contact Info) Description 12/19/2023 9:45 AM CDT Office Visit [address] [place] [address] Trudi Grayson APRN DIRECTOR OF NUCLEAR MEDICINE [address] [place] [address] Steven Canchola MD [address] [place] [address] 12/27/2023 Ancillary Procedure [facility] [address] [place] [phone] Chris De Leon MD [address] [place] [address] documented as of this encounter Visit Diagnoses Diagnosis Persistent atrial fibrillation (H) Atrial fibrillation documented in this encounter Care Teams Land Classifier Relationship Specialty Start Date End Date Graham Licona MD [facility] [address] [place] [address] PCP - General Family Medicine 06/30/21 Trudi Grayson APRN DIRECTOR OF NUCLEAR MEDICINE [address] [place] [address] Assigned Heart and Vascular Provider 10/07/22 Steven Canchola MD [address] [place] [address] Cardiovascular Disease 07/12/23 documented as of this encounter
--- OUTSIDE RECORDS SUMMARY | 2023-10-22 09:41 | XMS_ITS ---
Author Name Unknown Organization [place] Address [facility] [place] [address] Care Team Providers Care Hims Clerk Name Role Phone Graham Licona MD Primary Care Provider [phone] Trudi Grayson APRN MOPHEAD SEWER Unavailable [phone] Steven Canchola MD Unavailable + Active Problems [...] treatments are documented for this patient in [facility]. Treatments may have been administered in another system. Lifetime Dose Tracking * Chemical Lifetime Dose Automatic Entry Manual Entr y Air Kerma 64 mGy 0 mGy 64 mGy Margie DAP 8,803 mGy-cm2 0 mGy-cm2 8,803 mGy-cm2
--- OUTSIDE RECORDS SUMMARY | 2023-10-22 09:42 | XMS_ITS | Encounter Summary ---
Author Name Unknown Organization [place] Address [facility] [place] [address] Care Team Providers Care Electric Meter Inspector Name Role Phone Herminia Coleman MD Primary Care Provider Ellie jamesilaGraham Calvo MD Primary Care Provider [phone] [facility] Primary Care Provider + Slava Hernandez PA-C Primary Care Provider [phone] Timothy Smith MD Unavailable Unavailable Graham Licona MD Primary Care Provider [phone] Tammy Montenegro PA-C Unavailable [phone] Trudi Grayson APRN ORNAMENTAL IRON WORKER HELPER Unavailable [phone] Steven Canchola MD Unavailable + Encounter Details Date Type Department Care Team (Late st Contact Info) Description 09/12/2013 Office Visit-[facility] [place] [address] [place] [address] Tammy Montenegro PA-C [address] [facility] [address] [address] [address] [place], [place] [address] Social History Tobacco Use Types Packs/Day Years [...] Referring Physician: HERMINIA COLEMAN Referring Clinic: [facility] CURRENT DIAGNOSES 1. - Hyperlipidemia, 272.4 2. - Hypertension, 401.1 3. SD-Recent Unspecified, 410.91 4. - CAD, 414.00 5. [...] 2013. He saw Dr. Smith, his primary senior hydrogeologist, in May, at which time he was [...] walking in a big store, such as [employer]. He does workout at [employer] three times weekly and states he has [...] tablet, 1 p.o. twice daily, #180 (One [place] Eighty) MEDICATIONS STOPPED TODAY: losartan 25 mg [...] Description 12/19/2023 9:45 AM CDT Office Visit [facility] [address] [place] [address] Trudi Grayson APRN ORNAMENTAL IRON WORKER HELPER [address] [address] Steven Canchola MD [address] [place] [address] 12/27/2023 Ancillary Procedure [facility] [address] [facility] [address] [place] [phone] Chris De Leon MD [address] [place] [address] documented as of this encounter Visit Diagnoses Not on filedocumented in this encounter Care Teams Electric Meter Inspector Relationship Specialty Start Date End Date Herminia Coleman MD PCP - General Family Practice 02/01/12 04/12/17 Graham Licona MD [facility] [address] [place] [address] PCP - General Family Practice 04/13/17 01/15/[address] [address] PCP - General 01/16/18 07/01/18 Slava Hernandez PA-C [address] [address] PCP - General Physician Carbon Dioxide Operator 07/02/18 06/29/21 Graham Licona MD [facility] [address] [place] [address] PCP - General Family Medicine 06/30/21 Timothy Smith MD Assigned Heart and Vascular Provider 07/23/20 09/08/22 Tammy Montenegro PA-C [address] [place] [address] Assigned Heart and Vascular Provider 09/09/22 10/06/22 Trudi Grayson APRN [facility] [address] [address] Assigned Heart and Vascular Provider 10/07/22 Steven Canchola MD [address] [place] [id number] Cardiovascular Disease 07/12/23 documented as of this encounter
--- OUTSIDE RECORDS SUMMARY | 2023-10-22 09:42 | XMS_ITS | Encounter Summary ---
Author Name Unknown Organization [place] Address [address] [place] [address] Care Team Providers Care Queen'S Counsel Name Role Phone Graham Licona MD Primary Care Provider [phone] Trudi Grayson APRN POCKET BUILDER Unavailable [phone] Reason for Visit * Reason Onset Date Comments Refill Request 12/04/2022 amiodarone Encounter Details Date Type Department Care Team (Late st Contact Info) Description 12/04/2022 Refill [facility] [address] [place] [address] [address] [place] [address] Trudi Grayson APRN POCKET BUILDER [address] [facility] [place], [place] [address] Refill Request (amiodarone) Social History Tobacco Use [...] Cristopher Durán RN - 12/04/2022 8:40 AM SEAMING INSPECTOR [facility] Refill Guideline reviewed. Medication meets criteria for refill. ING INSPECTOR documented in this encounter Plan of Treatment Upcoming Encounters Date Type Department Care Team (Late st Contact Info) Description 12/19/2023 9:45 AM CDT Office Visit [facility] [place] [address] [facility] [address] [place] [phone] Trudi Grayson APRN POCKET BUILDER [address] [place] [address] [place] [address] Steven Canchola MD [address] [place] [address] 12/27/2023 Ancillary Procedure [facility] Heart Care [address] [facility] [address] [place] [phone] Chris De Leon MD [address] [place] [address] documented as of this encounter Visit Diagnoses Diagnosis Sustained VT (ventricular tachycardia) (H) Paroxysmal ventricular tachycardia documented in this encounter Care Teams Queen'S Counsel Relationship Specialty Start Date End Date Graham Licona MD [facility] [address] [place] [address] PCP - General Family Medicine 06/30/21 Trudi Grayson APRN POCKET BUILDER [address] [place] [id number] Assigned Heart and Vascular Provider 10/07/22 documented as of this encounter
--- OUTSIDE RECORDS SUMMARY | 2023-10-22 09:42 | XMS_ITS | Encounter Summary ---
Author Name Unknown Organization [place] Address [address] [place] [address] Care Team Providers Care Heel Seat Pounder Name Role Phone Graham Licona MD Primary Care Provider [phone] Trudi Grayson APRN DOWNSTAIRS MAID Unavailable [phone] Encounter Details Date Type Department Care Team (Late st Contact Info) Description 04/30/2023 [facility] Heart Care [address] [facility] [address] [place] [phone] Karey Kay, RN Social History Tobacco Use [...] CDT Office Visit [facility] [place] [address] [facility] [address] [place] [phone] Trudi Grayson APRN DOWNSTAIRS MAID [address] [place] [address] Steven Canchola MD [address] [place] [address] 12/27/[address] [facility] Heart Care [address] [facility] [address] [place] [address] Chris De Leon MD [address] [place] [address] documented as of this encounter Visit Diagnoses Not on filedocumented in this encounter Care Teams Heel Seat Pounder Relationship Specialty Start Date End Date Graham Licona MD [facility] [address] [place] [address] PCP - General Family Medicine 06/30/21 Trudi Grayson APRN DOWNSTAIRS MAID [address] [place] [address] Assigned Heart and Vascular Provider 10/07/22 documented as of this encounter
--- OUTSIDE RECORDS SUMMARY | 2023-10-22 09:42 | XMS_ITS | Encounter Summary ---
Author Name Unknown Organization [place] Address [facility] [place] [address] Care Team Providers Care Parts Salesman Name Role Phone Herminia Coleman MD Primary Care Provider Ellie jamesilaGraham Calvo MD Primary Care Provider [phone] [facility] Primary Care Provider + Slava Hernandez PA-C Primary Care Provider Timothy Smith MD Unavailable Unavailable Graham Licona MD Primary Care Provider [phone] Tammy Montenegro PA-C Unavailable [phone] Trudi Grayson APRN HEAD ATHLETIC TRAINER Unavailable [phone] Steven Canchola MD Unavailable + Encounter Details Date Type Department Care Team (Late st Contact Info) Description 03/18/2013 Office Visit-[facility] Heart [address] [place] [phone] Michelle Huff PA-C Social History Tobacco Use [...] CDT Progress Note Created by: HANK Arellano [id number] DATE: 03/18/2013 RADHA FAROOQ DATE OF : 1940 AGE: [age] years old Referring Physician: HERMINIA COLEMAN Referring Clinic: [facility] CURRENT DIAGNOSES 1. - Hyperlipidemia, 272.4 2. [...] past at another institution. He presented to [facility] last year withchest discomfort and was found to be in atrial flutter. Due to troponin elevation he underwent coronary angiography and was found to have no significant stenosis. No intervention was performed. Subsequently he went to [facility] and underwent a direct current cardioversion. [...] Weight- 318.00 lbs. Height- 71 BMI Measurement: Medical Direct Club Error: [Microsoft][ODBC SQL Meat Smoker Roving Machine Operator][SQL Meat Smoker]Divide by zero error encountered. - 83972 CONSTITUTIONAL cooperative, alert and oriented,well developed, well [...] Description 12/19/2023 9:45 AM CDT Office Visit [facility] Heart [facility] [address] [facility] [address] [place] [address] Trudi Grayson APRN HEAD ATHLETIC TRAINER [address] [place] [address] Steven Canchola MD [address] [place] [address] 12/27/2023 Ancillary Procedure [facility] Heart Care [address] [facility] [address] [place] [phone] Chris De Leon MD [address] [place] [address] documented as of this encounter Visit Diagnoses Not on filedocumented in this encounter Care Teams Parts Salesman Relationship Specialty Start Date End Date Herminia Coleman MD PCP - General Family Practice 02/01/12 04/12/17 Graham Licona MD [facility] [address] [place] [address] PCP - General Family Practice 04/13/17 01/15/18 [facility] [address] [place] [phone] PCP - General 01/16/18 07/01/18 Slava Hernandez PA-C [facility] [address] [place] [address] PCP - General Physician Oss Architect 07/02/18 06/29/21 Graham Licona MD [facility] [address] [place] [address] PCP - General Family Medicine 06/30/21 Timothy Smith MD Assigned Heart and Vascular Provider 07/23/20 09/08/22 Tammy Montenegro PA-C [address] [place] [address] Assigned Heart and Vascular Provider 09/09/22 10/06/22 Trudi Grayson APRN HEAD ATHLETIC TRAINER [address] [place] [address] Assigned Heart and Vascular Provider 10/07/22 Steven Canchola MD [address] [place] [address] Cardiovascular Disease 07/12/23 documented as of this encounter
--- OUTSIDE RECORDS SUMMARY | 2023-10-22 09:42 | XMS_ITS | Encounter Summary ---
Author Name Unknown Organization [place] Address [facility] [place] [address] Care Team Providers Care Engineer Specialist Name Role Phone Graham Licona MD Primary Care Provider [phone] Trudi Grayson APRN COMPENSATION ADMINISTRATOR Unavailable [phone] Encounter Details Date Type Department Care Team (Late st Contact Info) Description 10/26/2022 9:30 AM ROENTGENOLOGY TEACHER Lab [address] [place] [address] Paroxysmal ventricular tachycardia (H); Hypothyroidism [...] Coronavirus/COVID-19? No / Unsure 10/26/2022 9:17 AM ROENTGENOLOGY TEACHER documented as of this encounter Plan of Treatment Upcoming Encounters Date Type Department Care Team (Late st Contact Info) Description 12/19/2023 9:45 AM CDT Office Visit [place] [address] [facility] [address] [place] [address] Trudi Grayson, FLACO COMPENSATION ADMINISTRATOR [address] [place] [address] Steven Canchola MD [address] [place] [address] 12/27/2023 Ancillary Procedure [facility] Heart Care [address] [place] [phone] Chris De Leon MD [address] [place] [address] documented as of this encounter Procedures Procedure Name Priority Date/Time Associated Diagnosis Comments TSH WITH FREE T4 REFLEX Routine 10/26/2022 9:19 AM ROENTGENOLOGY TEACHER Paroxysmal ventricular tachycardia (H) Hypothyroidism due to medication T4 FREE Routine 10/26/2022 9:19 AM ROENTGENOLOGY TEACHER Paroxysmal ventricular tachycardia (H) Hypothyroidism due to medication documented in this encounter Results * (ABNORMAL) T4 free (10/26/2022 9:19 AM ROENTGENOLOGY TEACHER) Free T4 0.83(L) 0.90 - 1.70 ng/dL 10/26/2022 10:43 AM ROENTGENOLOGY TEACHER [facility] Blood STRUCTURE OF RIGHT UPPER LIMB / Unknown Venipuncture / Unknown 10/26/2022 9:19 AM ROENTGENOLOGY TEACHER 10/26/2022 9:22 AM ROENTGENOLOGY TEACHER Trudi Grayson APRN COMPENSATION ADMINISTRATOR LAB - BLOOD ORD ERABLES LABORATORY [facility] Acute Care Lab [address] Lab (1st floor, no room number) [place] [address], [facility] [phone] * (ABNORMAL) TSH with free T4 reflex (10/26/2022 9:19 AM ROENTGENOLOGY TEACHER) TSH 22.48(H) 0.30 - 4.20 uIU/mL 10/26/2022 10:19 AM ROENTGENOLOGY TEACHER [facility] Blood STRUCTURE OF RIGHT UPPER LIMB / Unknown Venipuncture / Unknown 10/26/2022 9:19 AM ROENTGENOLOGY TEACHER 10/26/2022 9:22 AM ROENTGENOLOGY TEACHER Trudi Grayson APRN, CNP LAB - BLOOD ORD ERABLES [facility] Acute Care Lab [address] Lab (1st floor, no room number) [place] [address], [facility] [phone] documented in this encounter Visit Diagnoses Diagnosis Paroxysmal ventricular tachycardia (H) Paroxysmal ventricular tachycardia Hypothyroidism due to medication documented in this encounter Care Teams Engineer Specialist Relationship Specialty Start Date End Date Graham Licona MD [facility] [address] [place] [address] PCP - General Family Medicine 06/30/21 Trudi Grayson APRN COMPENSATION ADMINISTRATOR [address] [address] Assigned Heart and Vascular Provider 10/07/22 documented as of this encounter
--- OUTSIDE RECORDS SUMMARY | 2023-10-22 09:42 | XMS_ITS | Encounter Summary ---
Author Name Unknown Organization [place] Address [address] [place] [address] Care Team Providers Care Supercalender Operator Name Role Phone Graham Licona MD Primary Care Provider [phone] Trudi Grayson APRN CLOTH SANDER Unavailable [phone] Reason for Visit * CV Testing (Routine) - Closed Specialty Diagnoses / Procedures Referred By Contnghia t Referred To Contact Diagnoses Cardiac pacemaker in situ Procedures Cardiac Device Check - Remote Timothy Smith MD [facility] [address] [place] [address] Referral ID Status Reason Start Date Expiration Date Visits Re quested Visits Authorized [id number] Closed 08/16/2022 08/16/2023 100 100 Encounter Details Date Type Department Care Team (Latest Contact Info) Description 11/27/2022 Ancillary Procedure [facility] Heart Care [address] [facility] [address] [place] [phone] Cardiac pacemaker in situ Social History Tobacco [...] CDT Office Visit [facility] Heart [facility] [address] [facility] [address] [place] [phone] Trudi Grayson APRN CNP [address] [place] [address] Steven Canchola MD [address] [place] [address] 12/27/2023 Ancillary Procedure [facility] Heart Care [address] [facility] [address] [place] [phone] Chris De Leon MD [address] [place] [address] documented as of this encounter Procedures Procedure Name Priority Date/Time Associated Diagnosis Comments INTERROGATION DEVICE EVAL REMOTE ICD UP TO 90 Routine 11/27/2022 4:27 PM ASSOCIATE PROJECT MANAGER Cardiac pacemaker in situ documented in this encounter Results * INTERROGATION DEVICE EVAL REMOTE ICD UP TO 90 (11/27/2022 4:27 PM ASSOCIATE PROJECT MANAGER) Date Time Interrogation Session [id number] [employer] Implantable Pulse Generator Director And Professor [employer] Implantable Pulse Generator Model D432 RESONATE EL ICD [employer] Implantable Pulse Generator Serial Number [id number] [employer] Type Interrogation Session Remote [employer] Clinic Name [facility] [employer] Implantable Pulse Generator Type Defibrillator [employer] Implantable Pulse Generator Implant Date 20210704 [employer] Implantable Lead Director And Professor [employer] Implantable Lead Model 0272 [place] 4-Site S [employer] Implantable Lead Serial Number [id number] [employer] Implantable Lead Implant Date 20210704 [employer] [...] ms [employer] Battery Date Time of Measurements [id number] [employer] Battery Status Beginning of Service [employer] Battery Remaining Longevity 162 mo [employer] Battery Remaining Percentage 100 % [employer] Capacitor Charge Type Reformation [employer] Capacitor Last Charge Date Time [id number] [employer] Capacitor Charge Time 8.8 s MED[employer]IC [...] [employer] Episode Statistic Recent Date Time Start [id number] [employer] Episode Statistic Recent Date Time End [id number] [employer] Episode Statistic Recent Date Time Start [employer] Episode Statistic Recent Date Time End [employer] Episode Statistic Recent Date Time Start [employer] Episode Statistic Recent Date Time End [employer] Episode Identifier [id number] [employer] Episode Type Category Periodic EGM [employer] Episode Date Time [id number] [employer] Anatomical Region Laterality Modality Other 11/27/2022 3:13 PM ASSOCIATE PROJECT MANAGER Narrative 12/01/2022 2:00 PM ASSOCIATE PROJECT MANAGER [employer] Resonate (S) ICD Remote Device Check SUPERINTENDENT PLANT: 17% Mode: VVIR 50-130 Underlying Rhythm: VS [...] situ documented in this encounter Care Teams Supercalender Operator Relationship Specialty Start Date End Date Graham Licona MD [facility] [address] [place] [address] PCP - General Family Medicine 06/30/21 Trudi Grayson APRN CLOTH SANDER [address] [address] Assigned Heart and Vascular Provider 10/07/22 documented as of this encounter
--- OUTSIDE RECORDS SUMMARY | 2023-10-22 09:42 | XMS_ITS | Encounter Summary ---
Author Name Unknown Organization [place] Address [address] [facility] [place] [address] Care Team Providers Care Poundmaster Name Role Phone Herminia [place] MD Primary Care Provider Ellie jamesilable Graham Licona MD Primary Care Provider [phone] [facility] Primary Care Provider + Slava Hernandez PA-C Primary Care Provider [phone] Timothy Smith MD Unavailable Unavailable Graham Licona MD Primary Care Provider [phone] Tammy Montenegro PA-C Unavailable [phone] Trudi Grayson APRN SEE SUPERVISOR Unavailable [phone] Steven Canchola MD Unavailable + Encounter Details Date Type Department Care Team (Late st Contact Info) Description 05/23/2013 Office Visit-[facility] Heart [address] [place] [phone] Timothy Smith MD Social History Tobacco Use [...] Physician: HERMINIA COLEMAN [facility] CURRENT DIAGNOSES 1. - Hyperlipidemia, 272.4 2. [...] hr, 1 p.o. twice daily, #180 (One [place] Eighty) MEDICATIONS REFILLED/STOPPED TODAY: metoprolol succinate 50 [...] Description 12/19/2023 9:45 AM CDT Office Visit [facility] Heart [facility] [address] [facility] [address] [place] [address] Trudi Grayson APRN SEE SUPERVISOR [address] [place] [address] Steven Canchola MD [address] [place] [address] 12/27/2023 Ancillary Procedure [facility] Heart Care [address] [facility] [address] [place] [phone] Chris De Leon MD [address] [place] [address] documented as of this encounter Visit Diagnoses Not on filedocumented in this encounter Care Teams Poundmaster Relationship Specialty Start Date End Date Herminia Coleman MD PCP - General Family Practice 02/01/12 04/12/17 Graham Licona MD [facility] [address] [place] [address] PCP - General Family Practice 04/13/17 01/15/18 [facility] [address] [place] [phone] PCP - General 01/16/18 07/01/18 Slava Hernandez PA-C [facility] [address] [place] [address] PCP - General Physician Rotary Kiln Operator 07/02/18 06/29/21 Graham Licona MD [facility] [address] [place] [address] PCP - General Family Medicine 06/30/21 Timothy Smith MD Assigned Heart and Vascular Provider 07/23/20 09/08/22 Tammy Montenegro PA-C [address] [place] [address] Assigned Heart and Vascular Provider 09/09/22 10/06/22 Trudi Grayson APRN CNP [address] [place] [address] Assigned Heart and Vascular Provider 10/07/22 Steven Canchola MD [address] [place] [address] Cardiovascular Disease 07/12/23 documented as of this encounter
--- OUTSIDE RECORDS SUMMARY | 2023-10-22 09:42 | XMS_ITS | Encounter Summary ---
Author Name Unknown Organization [place] Address [address] [place] [address] Care Team Providers Care Fisher Gill Net Name Role Phone Graham Licona MD Primary Care Provider Trudi Grayson APRN ACTIVITIES AIDE Unavailable [phone] Encounter Details Date Type Department Care Team [...] Coronavirus/COVID-19? No / Unsure 10/26/2022 9:17 AM CHEF PASSENGER VESSEL documented as of this encounter Plan of Treatment Upcoming Encounters Date Type Department Care Team (Late st Contact Info) Description 12/19/2023 9:45 AM CDT Office Visit [facility] [address] [facility] [address] [place] [phone] Trudi Grayson APRN ACTIVITIES AIDE [address] [address] Steven Canchola MD [address] [place] [address] 12/27/[address] [facility] Heart Care [address] [facility] [address] [place] [phone] Chris De Leon MD [address] [place] [address] documented as of this encounter Visit Diagnoses Not on filedocumented in this encounter Care Teams Fisher Gill Net Relationship Specialty Start Date End Date Graham Licona MD [facility] [address] [place] [address] PCP - General Family Medicine 06/30/21 Trudi Grayson APRN ACTIVITIES AIDE [address] [place] [address] Assigned Heart and Vascular Provider 10/07/22 documented as of this encounter
--- OUTSIDE RECORDS SUMMARY | 2023-10-22 09:42 | XMS_ITS | Encounter Summary ---
Author Name Unknown Organization [place] Address [address] [place] [address] Care Team Providers Care Stump Shooter Name Role Phone Graham Licona MD Primary Care Provider [phone] Trudi Grayson APRN FLOOR TRADER Unavailable [phone] Reason for Visit * Reason Onset Date Comments Implantable Devices 01/18/2023 Elevated Hea rtLogic Encounter Details Date Type Department Care Team (Late st Contact Info) Description 01/18/2023 Telephone [facility] Heart Care [address] [facility] [address] [place] [phone] Eve Santos, SIENNA [...] 12/19/2023 9:45 AM CDT Office Visit [facility] [place] [address] [facility] [address] [place] [phone] Trudi Grayson APRN FLOOR TRADER [address] [address] Steven Canchola MD [address] [place] [address] 12/27/2023 Ancillary Procedure [facility] Heart Care [address] [facility] [address] [place] [phone] Chris De Leon MD [address] [place] [address] documented as of this encounter Visit Diagnoses Not on filedocumented in this encounter Care Teams Stump Shooter Relationship Specialty Start Date End Date Graham Licona MD [facility] [address] [place] [address] PCP - General Family Medicine 06/30/21 Trudi Grayson APRN FLOOR TRADER [address] [address] Assigned Heart and Vascular Provider 10/07/22 documented as of this encounter
--- OUTSIDE RECORDS SUMMARY | 2023-10-22 09:42 | XMS_ITS | Encounter Summary ---
Author Name Unknown Organization [place] Address [address] [place] [address] Care Team Providers Care Tube Fitter Name Role Phone Graham Licona MD Primary Care Provider [phone] Trudi Grayson APRN INTERDISCIPLINARY PROFESSOR Unavailable [phone] Encounter Details Date Type Department Care Team (Late st Contact Info) Description 05/07/2023 [facility] Heart Care [address] [facility] [address] [place] [phone] Karey Kay, RN Social History Tobacco Use [...] Description 12/19/2023 9:45 AM CDT Office Visit [facility] [place] [address] [facility] [address] [place] [address] Trudi Grayson APRN INTERDISCIPLINARY PROFESSOR [address] [place] [address] Steven Canchola MD [address] [place] [address] 12/27/2023 Ancillary Procedure [facility] Heart Care [address] [facility] [address] [place] [phone] Chris De Leon MD [address] [place] [address] documented as of this encounter Visit Diagnoses Not on filedocumented in this encounter Care Teams Tube Fitter Relationship Specialty Start Date End Date Graham Licona MD [facility] [address] [place] [address] PCP - General Family Medicine 06/30/21 Trudi Grayson APRN INTERDISCIPLINARY PROFESSOR [address] [place] [address] Assigned Heart and Vascular Provider 10/07/22 documented as of this encounter
--- OUTSIDE RECORDS SUMMARY | 2023-10-22 09:42 | XMS_ITS | Encounter Summary ---
Author Name Unknown Organization [place] Address [address] [place] [address] Care Team Providers Care Software Developer Manager Name Role Phone Graham Licona MD Primary Care Provider [phone] Trudi Grayson APRN SUPPLY CHAIN PROCUREMENT MANAGER Unavailable [phone] Reason for Visit * Reason Onset Date Comments Patient Request 11/27/2022 Remote device ch suma Encounter Details Date Type Department Care Team (Late st Contact Info) Description 11/27/2022 Telephone [facility] Heart [facility] [address] [facility] [address] [place] [address] Trudi Grayson APRN SUPPLY CHAIN PROCUREMENT MANAGER [address] [place], [place] [address] Patient Request (Remote device check ) Social [...] will watch for the transmission. Holden, RN EBACK EXCAVATOR * Telephone Encounter - Michelle Noe - 11/27/2022 8:35 AM CST [facility] Call Center Phone Message May a detailed [...] Not Applicable Thank you! [facility] EBACK EXCAVATOR documented in this encounter Plan of Treatment Upcoming Encounters Date Type Department Care Team (Late st Contact Info) Description 12/19/2023 9:45 AM CDT Office Visit [facility] [place] [address] [place] [phone] Trudi Grayson APRN SUPPLY CHAIN PROCUREMENT MANAGER [address] [place] [id number] Steven Canchola MD [address] [place] [address] 12/27/2023 Ancillary Procedure [facility] Care [address] [facility] [address] [place] [phone] Chris De Leon MD [address] [place] [id number] documented as of this encounter Visit Diagnoses Not on filedocumented in this encounter Care Teams Software Developer Manager Relationship Specialty Start Date End Date Graham Licona MD [facility] [address] [place] [address] PCP - General Family Medicine 06/30/21 Trudi Grayson APRN SUPPLY CHAIN PROCUREMENT MANAGER [address] [place] [address] Assigned Heart and Vascular Provider 10/07/22 documented as of this encounter
--- OUTSIDE RECORDS SUMMARY | 2023-10-22 09:42 | XMS_ITS | Encounter Summary ---
Author Name Unknown Organization [place] Address [address] [place] [address] Care Team Providers Care Duralumin Mechanic Name Role Phone Graham Licona MD Primary Care Provider [phone] Trudi Grayson APRN BUILDING AND CONSTRUCTION MANAGER Unavailable [phone] Reason for Visit * CV Testing (Routine) - Closed Specialty Diagnoses / Procedures Referred By Contnghia t Referred To Contact Diagnoses Cardiac pacemaker in situ Procedures Cardiac Device Check - Remote Timothy Smith MD [facility] [address] [place] [address] Referral ID Status Reason Start Date Expiration Date Visits Re quested Visits Authorized [id number] Closed 08/16/2022 08/16/2023 100 100 Encounter Details Date Type Department Care Team (Latest Contact Info) Description 03/05/2023 Ancillary Procedure [facility] [address] [place] [phone] Cardiac pacemaker in situ Social History Tobacco [...] Description 12/19/2023 9:45 AM CDT Office Visit [facility] Heart [facility] [address] [place] [phone] Trudi Grayson APRN CNP [address] [place] [address] Steven Canchola MD [address] [place] [id number] 12/27/2023 Ancillary Procedure [facility] Care [address] [place] [phone] Chris De Leon MD [address] [place] [id number] documented as of this encounter Procedures Procedure Name Priority Date/Time Associated Diagnosis Comments INTERROGATION DEVICE EVAL REMOTE ICD UP TO 90 Routine 03/05/2023 10:17 AM CDT Cardiac pacemaker in situ documented in this encounter Results * INTERROGATION DEVICE EVAL REMOTE ICD UP TO 90 (03/05/2023 10:17 AM CDT) Date Time Interrogation Session [id number] [employer] Implantable Pulse Generator Tumbling Machine Operator [employer] Implantable Pulse Generator Model D432 RESONATE EL ICD [employer] Implantable Pulse Generator Serial Number [id number] [employer] Type Interrogation Session Remote [employer] Clinic Name [facility] [employer] Implantable Pulse Generator Type Defibrillator [employer] Implantable Pulse Generator Implant Date [id number] [employer] Implantable Lead Tumbling Machine Operator [employer] Implantable Lead Model 0272 Endotak Victor 4-Site S [employer] Implantable Lead Serial Number [id number] [employer] Implantable Lead Implant Date 20210704 [employer] [...] Reformation [employer] Capacitor Last Charge Date Time [id number] [employer] Capacitor Charge Time 8.9 s [employer] Capacitor Charge Type Shock [employer] Capacitor Last Charge Date Time [id number] [employer] Capacitor Charge Time 6.8 s [employer] [...] Category Periodic EGM [employer] Episode Date Time [id number] [employer] Episode Identifier [id number] [employer] Episode Type Category Other [employer] Episode Date Time [id number] [employer] Anatomical Region Laterality Modality Other 03/05/2023 1:07 AM CDT Narrative 03/05/2023 2:10 PM CDT Sponsia Resonate (S) ICD Remote Device Check ?? BUFFING TURNER AND COUNTER: 18 % ?? Mode: VVIR5 0-130 ?? Presenting Rhythm: VS/BUFFING TURNER AND COUNTER at 60s ?? Historical Underlying Rhythm: SB/SR 50-60s Heart Rate: 50-100 but primarily 50-60s ?? Sensing: WNL ?? Pacing Threshold: WNL ?? Impedance: WNL, shock impedance slowly trending up over past year ?? Battery Status: 13y ?? Atrial Arrhythmia: none ?? Ventricular Arrhythmia: none ?? ATP: 0 ?? Shocks: 0 ?? Tachy Therapy History: In process -[employer] Resonate (07/04/21-present) secondary prevention:\X0A09\-ATP: 34 -08/2021\X0A09\-Shock: [...] situ documented in this encounter Care Teams Duralumin Mechanic Relationship Specialty Start Date End Date Graham Licona MD [facility] [address] [place] [address] PCP - General Family Medicine 06/30/21 Trudi Grayson APRN BUILDING AND CONSTRUCTION MANAGER [address] [place] [address] Assigned Heart and Vascular Provider 10/07/22 documented as of this encounter
--- OUTSIDE RECORDS SUMMARY | 2023-10-22 09:42 | XMS_ITS | Encounter Summary ---
Author Name Unknown Organization [place] Address [address] [place] [address] Care Team Providers Care Floating Derrick Operator Name Role Phone Graham Licona MD Primary Care Provider [phone] Trudi Grayson APRN PANTOGRAPH MACHINE SET UP OPERATOR Unavailable [phone] Reason for Visit * Reason Onset Date Comments Orders 12/26/2022 Needs lab order for A1C Encounter Details Date Type Department Care Team (Late st Contact Info) Description 12/26/2022 Telephone [facility] [address] [facility] [address] [place] [phone] Trudi Grayson APRN PANTOGRAPH MACHINE SET UP OPERATOR [address] [facility] [place] [id number] Orders (Needs lab order for A1C) Social [...] GerrySue boyd - 12/26/2022 1:28 PM CDT [facility] Call Center Phone Message May a [...] CDT Office Visit [facility] Heart [address] [place] [address] Trudi Grayson APRN PANTOGRAPH MACHINE SET UP OPERATOR [address] [place] [address] Steven Canchola MD [address] [facility] [address] [place] [address] 12/27/2023 Ancillary Procedure [facility] Heart Care [address] [facility] [address] [place] [address] Chris De Leon MD [address] [place] [id number] documented as of this encounter Visit Diagnoses Not on filedocumented in this encounter Care Teams Floating Derrick Operator Relationship Specialty Start Date End Date Graham Licona MD [facility] [address] [place] [address] PCP - General Family Medicine 06/30/21 Trudi Grayson APRN [facility] [address] [place] [address] Assigned Heart and Vascular Provider 10/07/22 documented as of this encounter
--- OUTSIDE RECORDS SUMMARY | 2023-10-22 09:43 | XMS_ITS | Clinical Summary ---
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 with angina pectoris 06/20/2021 Stage 3a [...] ocular 10/12/2016 Coronary artery disease invo lving [place] coronary artery of [place] heart without angina pectoris 02/11/2016 Lumbar foraminal stenosis 08/31/2015 Lumbar radicular pain 08/31/2015 Anticoagulation monitoring, INR range 2-3 2011 Atrial flutter 02/05/2012 Other and unspecified hyperlipidemia 10/18/2011 Low back pain 02/15/2010 HTN (hypertension) 02/10/2010 Resolved Problems Problem Noted Date Diagnosed Date Resolved Date Controlled type 2 diabetes m josefitus with complication, without long-term current use of insulin 10/11/2018 06/20/2021 Controlled type 2 diabetes m josefitus with complication, without long-term current use of insulin 01/13/2017 09/02/2018 Encounters Date Type Department Care Team Description 10/21/2023 11:20 AM ALARM ADJUSTER Orders Only [facility] [facility] [address] [place] [address] 2 scans: (2-Ord) ECHO TTE COMPLETE WO CONTRAST ([id number]) 09/19/2023 Telephone [facility] [address] [place] [address] Pcp, No Abstract (Resolved Primary Care RN Care Management episode) from Last 3 Months Immunizations Name Administration Dates Next Due COVID-19 vaccine (LemonQuest 30mcg/0.3mL) GANGA RO 12/04/2020,11/13/2020 Influenza Virus, Unspecified 08/06/2004, 07/23/1997,08/05/1996,1993,08/05/1993,08/11/1992 Influenza, [...] 11/03/2019, Additional history exists COVID-19 vaccine series ( season) 2023 01/19/2022, 07/14/2021, 12/04/2020, Additional history exists Influenza for age 65+ 06/01/2023 06/24/2020 , 08/15/2019, 07/03/2019, Additional history exists Pneumococcal series for age 65+ Completed 10/18/2015, 05/29/2011, 07/07/2005, Additional history exists Procedures Procedure Name Priority Date/Time Associated Diagnosis Comments ECHO TTE COMPLETE WO CONTRAST Routine 10/21/2023 12:08 PM ALARM ADJUSTER Dyspnea from Last 3 Months Results * ECHO TTE COMPLETE WO CONTRAST (10/21/2023 12:08 PM ALARM ADJUSTER) AORTIC VALVE MEAN PG 4 mmHg EJECTION FRACTION 63 % PEAK TR VELOCITY 3.0 m/s LVEDD 5.6 cm Anatomical Region Laterality Modality Ultrasound 10/21/2023 11:3 4 AM ALARM ADJUSTER Narrative 10/21/2023 4:33 PM ALARM ADJUSTER ECHOCARDIOGRAM RADHA VILLA ?Accession#: ?? [id number] : ?1940 83 years Study Date: ?? 10/21/2023 11:34:52 AM Gender: M ? BP: ? 106/59 mmHg Height: 180.00 cm ? BSA: ?2.28 m? ? ? Weight: 109.00 kg ? Tech: ? MJS ?Referring MD: NAS DEGROOT Site: ? [facility] Reading Location: [facility] Patient Location: Inpatient. Procedure: 2D, Color Doppler and Spectral Doppler. Indication for study: dyspnea/ increased troponin/ pacemaker Cardiac Rhythm: Irregular.Study quality: Good. Final Impressions: 1. Mildly increased left ventricular size, mildly increased wall thickness, normal global systolic function, calculated EF of 63 %. 2. Right ventricular cavity size is moderately enlarged, global systolic RV function is moderately reduced. 3. Moderate biatrial enlargement 4. The aortic valve is trileaflet and sclerotic, no stenosis and mild regurgitation. 5. The mitral valve is normal, mild to moderate mitral regurgitation. 6. Moderate-severe tricuspid regurgitation. 7. Mildly increased estimated pulmonary pressures by tricuspid regurgitation velocity and right atrial pressure (37 mmHg plus RAP). 8. Compared to the prior study from 05/24/17, the right ventricular enlargement and dysfunction is new. Chamber Sizes and Function Mildly increased left ventricular size, mildly increased wall thickness, normal global systolic function, calculated EF of 63 %. Left atrial size is moderately enlarged. Right ventricular cavity size is moderately enlarged, global systolic RV function is moderately reduced. The right atrium is moderately enlarged. Right atrial area is 32 cm? ? ?. The pulmonary artery is of normal size and origin. The sinus of Valsalva is normal sized. The ascending aorta is normal sized. Valves, RV Pressures and Diastolic Function The aortic valve is trileaflet and sclerotic, no stenosis and mild regurgitation. The mitral valve is normal in structure, mild to moderate mitral regurgitation. Indeterminate pattern of LV diastolic filling. The tricuspid valve is normal in structure. Tricuspid regurgitation is moderate-severe. The tricuspid regurgitant velocity is 3.0 m/s, the estimated right ventricular systolic pressure is 37 mmHg plus right atrial pressure. There is mildly increased estimated pulmonary pressure by tricuspid regurgitation velocity and right atrial pressure. The pulmonic valve is normal. Trace pulmonary regurgitation. TTE images do not appear adequate for transcather intervention with patient supine. Masses, Effusion, Shunts There is no pericardial effusion. The inferior vena cava is dilated, respiratory size variation less than 50%. No left to right shunting was detected by limited color flow Doppler interrogation of the interatrial septum. MEASUREMENTS AND CALCULATIONS 2-D Measurements and LV Function: LVID (d) 5.6 cm Planimetered EF 63 % LVID (s) 3.9 cm LV FS% (2D) ? 31 % IVS (d) ??1.2 cm LVOT diameter ?? 2.5 cm LVPW (d) 1.2 cm HR ?77 bpm Ao Sinus 3.5 cm LA Vol index ?51 ml/m2 Asc Ao ?? 3.4 cm RA area ? 32 cm?RV Max 4C (d) ?? 4.6 cm Diastology: Mitral E Peak 1.1 m/s Aortic Valve: Vmax ? 1.3 m/s ??IZABELA (V) ?? 2.13 cm? ? ? VTI ?0.29 m ?? IZABELA (I) ?? 2.09 cm? ? ? LVOT V max 0.6 m/s ??Max PG ?7 mmHg LVOT VTI ?? 0.13 m ?? Mean PG ?? 4 mmHg SV ? 60 ml ?Dim Index 0.44 SV index ?? 27 ml/m? ? ? CO ?4.6 l/min ?CI ?2.0 l/min/m? ? ? Tricuspid Valve and estimated PA pressures: TR Vmax 3.0 m/s TAPSE 1.3 cm TR maxG 37 mmHg . This study was interpreted by an [facility] accredited facility. CC: HIM (med records) [facility], Med/Surg - IP [facility]. ??Final ?? Procedure Note Bear Garcia MD - 10/21/2023 ECHOCARDIOGRAM RADHA VILLA : 1940 83 years Study Date: 10/21/2023 11:34:52 AM Gender: M BP: 106/59 mmHg Height: 180.00 cm BSA: 2.28 m? ? ? Weight: 109.00 kg Tech: YOVANY Referring MD: NAS DEGROOT Site: [facility] Reading Location: Mobile [facility] Patient Location: Inpatient. Procedure: 2D, Color Doppler and Spectral Doppler. Indication for study: dyspnea/ increased troponin/ pacemaker Cardiac Rhythm: Irregular.Study quality: Good. Final Impressions: 1. Mildly increased left ventricular size, mildly increased wallthickness, normal global systolic function, calculated EF of 63 %. 2. Right ventricular cavity size is moderately enlarged, global systolicRV function is moderately reduced. 3. Moderate biatrial enlargement 4. The aortic valve is trileaflet and sclerotic, no stenosis and mildregurgitation. 5. The mitral valve is normal, mild to moderate mitral regurgitation. 6. Moderate-severe tricuspid regurgitation. 7. Mildly increased estimated pulmonary pressures by tricuspidregurgitation velocity and right atrial pressure (37 mmHg plus RAP). 8. Compared to the prior study from 05/24/17, the right ventricularenlargement and dysfunction is new. Chamber Sizes and Function Mildly increased left ventricular size, mildly increased wall thickness,normal global systolic function, calculated EF of 63 %. Left atrial sizeis moderately enlarged. Right ventricular cavity size is moderatelyenlarged, global systolic RV function is moderately reduced. The rightatrium is moderately enlarged. Right atrial area is 32 cm? ? ?. The pulmonaryartery is of normal size and origin. The sinus of Valsalva is normalsized. The ascending aorta is normal sized. Valves, RV Pressures and Diastolic Function The aortic valve is trileaflet and sclerotic, no stenosis and mildregurgitation. The mitral valve is normal in structure, mild to moderatemitral regurgitation. Indeterminate pattern of LV diastolic filling. Thetricuspid valve is normal in structure. Tricuspid regurgitation ismoderate-severe. The tricuspid regurgitant velocity is 3.0 m/s, theestimated right ventricular systolic pressure is 37 mmHg plus right atrialpressure. There is mildly increased estimated pulmonary pressure bytricuspid regurgitation velocity and right atrial pressure. The pulmonicvalve is normal. Trace pulmonary regurgitation. TTE images do not appearadequate for transcather intervention with patient supine. Masses, Effusion, Shunts There is no pericardial effusion. The inferior vena cava is dilated,respiratory size variation less than 50%. No left to right shunting wasdetected by limited color flow Doppler interrogation of the interatrialseptum. MEASUREMENTS AND CALCULATIONS 2-D Measurements and LV Function: LVID (d) 5.6 cm Planimetered EF 63 % LVID (s) 3.9 cm LV FS% (2D) 31 % IVS (d) 1.2 cm LVOT diameter 2.5 cm LVPW (d) 1.2 cm HR 77 bpm Ao Sinus 3.5 cm LA Vol index 51 ml/m2 Asc Ao 3.4 cm RA area 32 cm? ? ? RV Max 4C (d) 4.6 cm Diastology: Mitral E Peak 1.1 m/s Aortic Valve: Vmax 1.3 m/s IZABELA (V) 2.13 cm? ? ? VTI 0.29 m IZABELA (I) 2.09 cm? ? ? LVOT V max 0.6 m/s Max PG 7 mmHg LVOT VTI 0.13 m Mean PG 4 mmHg SV 60 ml Dim Index 0.44 SV index 27 ml/m? ? ? CO 4.6 l/min CI 2.0 l/min/m? ? ? Tricuspid Valve and estimated PA pressures: TR Vmax 3.0 m/s TAPSE 1.3 cm TR maxG 37 mmHg . This study was interpreted by an [facility] accredited facility. CC: HIM (med records) [facility], Med/Surg - IP [facility]. Final aNs Degroot MD ECHO ORD from Last 3 Months Advance Directives Latest Code Status on File [...]
--- OUTSIDE RECORDS SUMMARY | 2023-10-22 09:43 | XMS_ITS | Encounter Summary ---
Author Name Unknown Organization [place] Address [address] [place] [address] Care Team Providers Care Emergency Medical Dispatcher Name Role Phone Herminia Coleman MD Primary Care Provider Ellie jamesilable Graham Licona MD Primary Care Provider [phone] [facility] Primary Care Provider + Slava Hernandez PA-C Primary Care Provider Timothy Smith MD Unavailable Unavailable Graham Licona MD Primary Care Provider [phone] Tammy Montenegro PA-C Unavailable [phone] Trudi Grayson APRN SEISMOLOGY TEACHER Unavailable [phone] Steven Canchola MD Unavailable + Encounter Details Date Type Department Care Team (Late st Contact Info) Description 02/10/2013 Office Visit-[facility] Heart [address] [place] [phone] Timothy Smith MD Social History Tobacco Use [...] Physician: HERMINIA COLEMAN Referring Clinic: [facility] CURRENT DIAGNOSES 1. - Hyperlipidemia, 272.4 2. - Hypertension, 401.[address]-Recent Unspecified, 410.91 4. - CAD, 414.00 5. [...] in another institution. The patient presented to [facility] last year with chestpain. He was found to be in atrial flutter. Because of troponin elevation the attention was focusedon acute coronary syndrome. He underwent coronary angiography and was found to have no significant stenosis. Therefore, he did not undergo any intervention. The patient was treated medically and was discharged from the hospital with no Cardiology followup plan. Subsequently he went to [facility] and underwent a DC cardioversion. Apparently, [...] Description 12/19/2023 9:45 AM CDT Office Visit [facility] [address] [address] [place] [phone] Trudi Grayson APRN SEISMOLOGY TEACHER [address] [place] [id number] Steven Canchola MD [address] [place] [id number] 12/27/2023 Ancillary Procedure [facility] Heart Care [address] [facility] [address] [place] [phone] Chris De Leon MD [address] [place] [id number] documented as of this encounter Visit Diagnoses Not on filedocumented in this encounter Care Teams Emergency Medical Dispatcher Relationship Specialty Start Date End Date Herminia Coleman MD PCP - General Family Practice 02/01/12 04/12/17 Graham Licona MD [facility] [address] [place] [address] PCP - General Family Practice 04/13/17 01/15/18 [facility] [address] [place] [phone] PCP - General 01/16/18 07/01/18 Slava Hernandez PA-C [facility] [id number] [place] [address] PCP - General Physician Nc Machinist 07/02/18 06/29/21 Graham Licona MD [facility] [address] [place] [address] PCP - General Family Medicine 06/30/21 Timothy Smith MD Assigned Heart and Vascular Provider 07/23/20 09/08/22 Tammy Montenegro PA-C [address] [place] [id number] Assigned Heart and Vascular Provider 09/09/22 10/06/22 Trudi Grayson APRN SEISMOLOGY TEACHER [address] [place] [address] Assigned Heart and Vascular Provider 10/07/22 Steven Canchola MD [address] [place] [address] Cardiovascular Disease 07/12/23 documented as of this encounter
== END 2023-10-20 22:55 | disposition home or self-care (01) ==
LOC: AMB 10-22 09:39
PROVIDERS: PCP Family Medicine; Visit Provider Family Medicine
DX: R53.1 Weakness (principal)
CPT/HCPCS: A0425; A0429

== ENCOUNTER 2023-10-20 23:46 | Inpatient (IN) | payer MEDICARE, BC, SELFPAY ==
[2023-10-21] VITALS (25 sets, daily range): BP systolic 93–115; BP diastolic 44–61; PULSE 58–78; RESP 18–26; TEMP 36.3–37.7; O2SAT 83–100; BMI 33.3
[2023-10-21 00:27] LABS: Lactate* 2.2 mmol/L (0.5-1.9)
[2023-10-21 00:37] LABS: Troponin, Point-of-Care* 0.07 ng/ml (0.01-0.04)
[2023-10-21 00:39] LABS: PCR FLU A Negative PCR FLU A (Negative); PCR FLU B Negative PCR FLU B (Negative); PCR RSV Negative PCR RSV (Negative); SARS PCR* Negative SARS-CoV-2 (Negative)
--- NOTE | 2023-10-21 01:05 | ED.GENADULT ---
HPI - General Adult General Chief complaint: Weakness Stated complaint: Weakness Time Seen by Provider: 10/21/23 00:45 History of Present Illness HPI narrative: Patient here with weakness, nausea starting this afternoon . Could not walk. Rolled out of bed tonight with abrasion noted to left knee. Bilateral dressings to lower extremities. He is seen in the wound clinic here. Oxygen applied upon arrival for low saturations ( 85%). Did not hit head and no LOC. Blood sugar taken by EMS was 160, history of diabetes. From home, told EMS can't take care of him anymore. 83-year-old man presenting to the emergency department the EMS with weakness and nausea beginning this afternoon. Unfortunately rolled out of bed tonight sustaining an abrasion to his left knee. He has been seen in the wound clinic following a visit to this emergency department for a left lower leg laceration and skin tear. Did not initiate him on antibiotics at that time preferring close follow-up. This was nearly 2 weeks ago. Has not reported a fever. Underlying history of diabetic neuropathy and chronic kidney disease. Heart failure. He denies chest pain or shortness of breath. No head injury today. No neck or back pain. History of atrial fibrillation/flutter head anticoagulated with a NOAC. Related Data Home Medications Medication Instructions Recorded Confirmed acetaminophen 500 mg tablet 1,000 mg PO TID PRN 04/11/22 10/21/23 amiodarone 200 mg tablet 200 mg PO DAILY 04/11/22 10/21/23 furosemide 40 mg tablet 40 mg PO DAILY 04/11/22 10/21/23 loratadine 10 mg tablet (Allergy 10 mg PO DAILY PRN 04/11/22 10/21/23 Relief (loratadine)) nitroglycerin 0.4 mg sublingual 0.4 mg sublingual ONCE PRN 04/11/22 10/21/23 tablet apixaban 2.5 mg tablet (Eliquis) 1.25 mg PO BID 10/12/23 10/21/23 insulin glargine 100 unit/mL (3 14 unit subcut DAILY 10/12/23 10/21/23 mL) subcutaneous pen (Lantus Solostar U-100 Insulin) metoprolol succinate 50 mg 50 mg PO DAILY 10/12/23 10/21/23 tablet,extended release 24 hr atorvastatin 20 mg tablet 20 mg PO HS 10/21/23 10/21/23 fluticasone propionate 50 2 spray intranasal DAILY 10/21/23 10/21/23 mcg/actuation nasal spray,suspension levothyroxine 50 mcg tablet 50 mcg PO DAILY 10/21/23 10/21/23 Previous Rx's Medication Instructions Recorded acyclovir 400 mg tablet 400 mg PO TID #42 tabs 10/10/22 tamsulosin 0.4 mg capsule See Rx Instructions .Route 11/19/22 .COMPLEX #90 caps glimepiride 2 mg tablet 2 mg PO DAILY #90 tabs 03/05/23 pen needle, diabetic 31 gauge x #100 ea 04/25/2302/13 (Pen Needle) blood sugar diagnostic (Contour #100 ea 07/24/23 Next Test Strips) fenofibrate 160 mg tablet 160 mg PO DAILY #90 tabs 09/19/23 metolazone 2.5 mg tablet 2.5 mg PO 3XW #60 tabs 09/19/23 omeprazole 20 mg capsule,delayed 20 mg PO BID #180 caps 09/19/23 release tramadol 50 mg tablet See Rx Instructions PO Q6H PRN 10/12/23 pain #120 tabs Allergies Allergy/AdvReac Type Severity Reaction Status Date / Time adhesive Allergy Unknown Rash Verified 10/12/23 08:33 rosuvastatin Allergy Unknown muscle Verified 10/12/23 08:33 soreness/weakness Review of Systems Status of ROS: Reports: 6 or more systems reviewed and unremarkable except as noted in History and below PFSH PFSH Medical History Risk for falls ?Z91.81 - History of falling (ICD-10) Venous stasis ulcer ?I83.009 - Varicose veins of unspecified lower extremity with ulcer of unspecified site (ICD-10) ?L97.909 - Non-pressure chronic ulcer of unspecified part of unspecified lower leg with unspecified severity (ICD-10) Cellulitis of lower extremity ?L03.119 - Cellulitis of unspecified part of limb (ICD-10) Canales's esophagus with dysplasia, unspecified ?K22.719 - Canales's esophagus with dysplasia, unspecified (ICD-10) Prostate mass ?N42.89 - Other specified disorders of prostate (ICD-10) Melanoma of eye ?C69.90 - Malignant neoplasm of unspecified site of unspecified eye (ICD-10) History of ventricular tachycardia ?Z86.79 - Personal history of other diseases of the circulatory system (ICD-10) Health care directive on file (11/29/21) ?Z78.9 - Other specified health status (ICD-10) Surgical History History of hip surgery (11/10/21) ?Z98.890 - Other specified postprocedural states (ICD-10) Status post implantation of automatic cardioverter/defibrillator (AICD) ?Z95.810 - Presence of automatic (implantable) cardiac defibrillator (ICD-10) 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) ?Z96.641 - Presence of right artificial hip joint (ICD-10) 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 Pt reports stair lift at home which has really helped In the past 12 months, utilities in danger of being shut off: no In past 12 months, lack of transportation kept you from medical appts, meetings, work, or getting things needed for daily living: no In the past 12 mos, have been you worried that your food would run out before you had money to buy more?: never true In the past 12 mos, the food you bought just didn't last and you didn't have money to buy more?: never true Highest level of school completed/degree received: Associate degree: occupational, technical, vocational program Smoking Status: Never smoker How often do you have a drink containing alcohol: never How often do you have six or more drinks on one occasion: Never AUDIT-C Alcohol total score: 0 Non-prescribed substance use: denies use Caffeine: No How often does anyone, including family, friends and others, physically hurt you: never How often does anyone, including family, friends and others, insult or talk down to you: never How often does anyone, including family, friends and others, threaten you with harm: never How often does anyone, including family, friends and others, scream or curse at you: never Little interest or pleasure in doing things: not at all Feeling down, depressed, or hopeless: not at all service: No Exam Narrative: Exam Narrative: Does seem tired but alerts easily to conversation. Pharynx is little dry. Lungs with some bibasilar crepitus. Heart is irregularly irregular. Does have Sourav wrap on the right lower extremity. The left with Sourav wrap under a velcro compression dressing. Removing this reveals a Telfa pad placed over the original wound. Does appear to be healing well but there is some small amount of purulence on the gauze overlay. The left lower leg is generally erythematous with some calor. Edema over the dorsum of the foot is well was not there prior. Now 1 to 2+. There is brighter erythema along inner left thigh over graft site/scar. Some bruising on the inside of the right upper leg as well. Has light, fresh abrasions over the left knee. Const: Vital Signs, click to edit/add: Vital Signs - 24 hr 10/21/23 00:03 10/21/23 00:03 10/21/23 00:15 Temperature 97.9 F Pulse Rate 76 62 Pulse Rate [Pulse Oximeter] 66 Respiratory Rate 26 H Blood Pressure Blood Pressure [Ri ght Upper Arm] 113/55 L Pulse Oximetry 96 93 99 Oxygen Delivery Me thod Nasal Cannula Oxygen Flow Rate 2 10/21/23 00:30 10/21/23 00:35 10/21/23 00:36 Temperature Pulse Rate 65 65 Pulse Rate [Pulse Oximeter] Respiratory Rate Blood Pressure 111/59 L Blood Pressure [Ri ght Upper Arm] Pulse Oximetry 83 L 97 100 Oxygen Delivery Me thod Oxygen Flow Rate 10/21/23 00:41 10/21/23 00:42 10/21/23 00:45 Temperature Pulse Rate 67 66 Pulse Rate [Pulse Oximeter] Respiratory Rate Blood Pressure 107/61 Blood Pressure [Ri ght Upper Arm] Pulse Oximetry 96 100 96 Oxygen Delivery Me thod Nasal Cannula Oxygen Flow Rate 2 10/21/23 01:00 10/21/23 01:02 10/21/23 01:02 Temperature Pulse Rate 62 64 64 Pulse Rate [Pulse Oximeter] Respiratory Rate Blood Pressure 112/53 L 112/53 L Blood Pressure [Ri ght Upper Arm] Pulse Oximetry 96 88 88 Oxygen Delivery Me thod Oxygen Flow Rate 10/21/23 01:15 10/21/23 01:22 10/21/23 01:30 Temperature Pulse Rate 68 62 67 Pulse Rate [Pulse Oximeter] Respiratory Rate Blood Pressure 110/44 L Blood Pressure [Ri ght Upper Arm] Pulse Oximetry 95 95 95 Oxygen Delivery Me thod Oxygen Flow Rate 10/21/23 01:42 10/21/23 01:45 Temperature Pulse Rate 68 68 Pulse Rate [Pulse Oximeter] Respiratory Rate Blood Pressure 115/51 L Blood Pressure [Ri ght Upper Arm] Pulse Oximetry 100 94 Oxygen Delivery Me thod Oxygen Flow Rate Course Vital Signs Vital signs: Initial Vital Signs Temperature 97.9 F 10/21/23 00:03 Temperature Source Temporal Artery Scan 10/21/23 00:03 Pulse Rate 76 10/21/23 00:03 Pulse Rhythm Regular 10/21/23 00:03 Respiratory Rate 26 H 10/21/23 00:03 Blood Pressure 113/55 L 10/21/23 00:03 Blood Pressure Mean 74 10/21/23 00:03 Blood Pressure Position Sitting 10/21/23 00:03 Pulse Oximetry 96 10/21/23 00:03 Oxygen Delivery Method Nasal Cannula 10/21/23 00:03 Oxygen Flow Rate 2 10/21/23 00:03 Vital Signs Temperature 97.9 F 10/21/23 00:03 Pulse Rate 76 10/21/23 00:03 Respiratory Rate 26 H 10/21/23 00:03 Blood Pressure 113/55 L 10/21/23 00:03 Pulse Oximetry 96 10/21/23 00:03 Oxygen Delivery Method Nasal Cannula 10/21/23 00:03 Oxygen Flow Rate 2 10/21/23 00:03 Temperature 97 F L 10/23/23 03:00 Pulse Rate 67 10/23/23 03:00 Respiratory Rate 18 10/23/23 03:00 Blood Pressure 117/77 10/23/23 03:00 Pulse Oximetry 95 10/23/23 03:00 Oxygen Delivery Method Nasal Cannula 10/23/23 03:00 Oxygen Flow Rate 1 10/23/23 03:00 Medications Administered Medications: Generic Name Dose Route Start Last Admin Trade Name Tasneem PRN Reason Stop Dose Admin Amiodarone HCl 200 mg 10/21/23 09:00 10/23/23 09:26 Amiodarone 200 Mg Tablet PO 200 mg DAILY JD Administration Apixaban 1.25 mg 10/21/23 09:00 10/23/23 09:27 Apixaban 5 Mg Tablet PO 1.25 mg BID JD Administration Fenofibrate 145 mg 10/21/23 09:00 10/23/23 09:42 Fenofibrate 145 Mg Tablet PO 145 mg DAILY JD Administration Fluticasone Propionate 2 spray 10/21/23 09:00 10/23/23 09:25 Fluticasone Propionate Nasal NOSTRIL-B 2 spray DAILY [facility] Administration Furosemide 40 mg 10/21/23 09:00 10/23/23 09:18 Furosemide 40 Mg Tablet PO 40 mg DAILY [facility] Administration Glimepiride 2 mg 10/21/23 09:00 10/23/23 09:17 Glimepiride 1 Mg Tablet PO 2 mg DAILY [facility] Administration Piperacillin Sod/Tazobactam 100 mls @ 200 mls/hr 10/21/23 09:00 10/23/23 09:43 Sod 2.25 gm/ Sodium Chloride IVPB 200 mls/hr Q6H [facility] Administration Insulin Aspart 0 unit 10/21/23 07:30 10/23/23 08:00 Insulin Aspart 100 Unit/Ml SUBCUT Not [facility] Insulin Detemir 14 unit 10/21/23 05:00 10/23/23 09:52 Insulin Detemir (Levemir) 100 Unit/Ml SUBCUT 14 unit DAILY [facility] Administration Levothyroxine Sodium 50 mcg 10/21/23 06:30 10/23/23 06:44 Levothyroxine 50 Mcg Tablet PO 50 mcg DAILY@0630 [facility] Administration Metoprolol Succinate 50 mg 10/21/23 09:00 10/23/23 09:51 Metoprolol Succinate (Xl) 50 Mg Tab PO 50 mg DAILY [facility] Administration Omeprazole 20 mg 10/21/23 09:00 10/23/23 09:52 Omeprazole [address] PO 20 mg BID JD Administration Sodium Chloride 5 ml 10/21/23 04:54 10/23/23 03:05 Sodium Chloride 0.9 % (Flush) 10 Ml Syringe IVF 5 ml .FLUSH PRN Administration Sodium Chloride 5 ml 10/21/23 09:00 10/23/23 09:19 Sodium Chloride 0.9 % (Flush) 10 Ml Syringe IVF 5 ml BID JD Administration Tamsulosin HCl 0.4 mg 10/21/23 09:00 10/23/23 09:18 Tamsulosin Hcl 0.4 Mg Capsule PO 0.4 mg DAILY JD Administration Discontinued Medications Generic Name Dose Route Start Last Admin Trade Name Freq PRN Reason Stop Dose Admin Aspirin 162 mg 10/21/23 09:50 10/21/23 10:27 Aspirin 81 Mg Tab.Chew PO 10/21/23 09:51 162 mg ONCE ONE Administration Fluticasone Propionate 2 spray 10/21/23 05:00 10/21/23 10:35 Fluticasone Propionate Nasal NOSTRIL-B Not Given DAILY JD Furosemide 20 mg 10/22/23 14:00 10/22/23 14:31 Furosemide 10 Mg/Ml Inj IVP 10/22/23 14:01 20 mg ONCE ONE Administration Furosemide 20 mg 10/23/23 07:59 10/23/23 09:16 Furosemide 10 Mg/Ml Inj IVP 10/23/23 08:00 20 mg ONCE ONE Administration Sodium Chloride 1,000 mls @ 1,000 mls/hr 10/21/23 01:15 10/21/23 02:40 0.9 % Sodium Chloride 1000 Ml IV 10/21/23 02:14 Infused .Q1H ONE Infusion Ceftriaxone Sodium 1 gm/ 100 mls @ 200 mls/hr 10/21/23 03:03 10/21/23 03:11 Sodium Chloride IVPB 10/21/23 03:04 200 mls/hr ONCE ONE Administration Sodium Chloride 1,000 mls @ 100 mls/hr 10/21/23 05:30 10/21/23 16:35 0.9 % Sodium Chloride 1000 Ml IV Not Given .Q10H JD Vancomycin HCl 2,000 mg/ 520 mls @ 260 mls/hr 10/21/23 09:30 10/21/23 10:24 Sodium Chloride IVPB 10/21/23 11:29 260 mls/hr ONCE ONE Administration Protocol Vancomycin HCl 1,750 mg/ 517.5 mls @ 258.75 mls/hr 10/22/23 09:00 10/22/23 09:40 Sodium Chloride IVPB 258.75 mls/hr Q24H JD Administration Protocol Lidocaine HCl 6 ml 10/21/23 08:47 10/21/23 08:57 Lidocaine Hcl 2 % Jelly (Top) Sterile TOPICAL 10/21/23 08:48 6 ml ONCE ONE Administration Lidocaine HCl 6 ml 10/21/23 08:53 10/21/23 10:35 Lidocaine Hcl 2 % Jelly (Top) Sterile TOPICAL 10/21/23 08:54 Not Given ONCE ONE Potassium Bicarbonate 50 meq 10/21/23 09:08 10/21/23 10:24 Potassium Bicarb 25 Meq Effervescent Tab PO 10/21/23 09:09 50 meq ONCE ONE Administration Potassium Bicarbonate 50 meq 10/22/23 11:07 10/22/23 11:25 Potassium Bicarb 25 Meq Effervescent Tab PO 10/22/23 11:08 50 meq ONCE ONE Administration Potassium Bicarbonate 50 meq 10/23/23 07:59 10/23/23 09:17 Potassium Bicarb 25 Meq Effervescent Tab PO 10/23/23 08:00 50 meq ONCE ONE Administration Sodium Chloride 250 ml 10/21/23 05:30 10/21/23 07:53 0.9 % Sodium Chloride 250 Ml IV Not Given Q24H [facility] Medical Decision Making MDM Narrative Medical decision making narrative: Does appear to have a cellulitis. Would presume that the relatively recent wound is related. In he did also have some mild hypoxia shortly after arrival with sats as low as 85-86%. Not sure that quite meeting criteria for sepsis though would have concerns for this. Creatinine chronically elevated at around 2.3. Looks to be at baseline. I would note though is also beta blocked. I did discuss this case with overnight hospitalist. Will focus antibiotic on likely source. Has received a L of normal saline at this point. With heart failure history will need to be cautious with fluid resuscitation and already demonstrating some mild hypoxia today. Admitting for further cares. Lab Data Lab results reviewed: Yes I reviewed the patient's lab results Labs: Lab Results 10/20/23 10/21/23 10/21/23 Range/Units 23:55 00:20 00:37 WBC 16.27 H (4.50-11.00) K/uL RBC 3.49 L (4.30-5.90) m/uL Hgb 11.4 L (13.5-17.5) gm/dL Hct 36.4 L (37.0-53.0) % MCV 104 H (80-100) fL MCH 33 (26-34) pg MCHC 31 L (32-36) gm/dL RDW Coeff of Annabelle 15.6 H (11.5-15.5) % Plt Count 280 (140-440) K/uL Neut % (Auto) 88.0 H (42.0-72.0) % Lymph % (Auto) 3.7 L (20-44) % [place] % (Auto) 6.7 (0.0-11.0) % Eos % (Auto) 0.2 (0.0-7.0) % Baso % (Auto) 0.1 (0.0-3.0) % Neut # (Auto) 14.30 H (1.7-7.0) K/uL Lymph # (Auto) 0.60 L (0.90-2.90) K/uL [place] # (Auto) 1.10 H (0.00-0.90) K/UL Eos # (Auto) 0.00 (0.00-0.50) K/uL Baso # (Auto) 0.00 (0.00-0.30) K/uL Abs Immat Gran (auto) 0.20 (0.00-0.30) K/uL Imm/Tot Granulo (auto) 1.3 % D-Dimer Quant (PE/DVT) (0.00-0.50) ug/ml VBG pH 7.464 H (7.32-7.43) VBG pCO2 42 (40-50) mmHG VBG pO2 28.9 (25-47) mmHG VBG HCO3 30 H (21-28) mmol/L Sodium 141 (135-149) mmol/L Potassium 3.4 L (3.6-5.1) mmol/L Chloride 100 (96-114) mmol/L Carbon Dioxide 28 (20-32) mmol/L Anion Gap 13 (7-15) mEq/L BUN 58 H (7-30) mg/dL Creatinine 2.3 H (0.5-1.5) mg/dL Estimated Creat Clear 25.01 Estimated GFR 27 ml/min Glucose 142 H (60-115) mg/dL Lactate 2.2 H (0.5-1.9) mmol/L Calcium 9.5 (8.4-10.6) mg/dL Total Bilirubin 1.3 (0.1-1.5) mg/dL Direct Bilirubin 0.6 H (0.0-0.5) mg/dL AST 33 (12-35) U/L ALT 17 (4-50) U/L Alkaline Phosphatase 51 (40-150) U/L Troponin I (0.01-0.04) ng/mL C-Reactive Protein 4.6 H (0.5-1.0) mg/dL NT-Pro-B Natriuret Pep pg/mL Total Protein 7.8 (6.0-8.3) g/dL Albumin 4.4 (3.3-5.0) g/dL Urine Color (Yellow) Urine Appearance (Clear) Urine pH (5.0-8.5) Ur Specific [place] (1.000-1.030) Urine Protein (Negative) Urine Glucose (UA) (Negative) Urine Ketones (Negative) Urine Blood (Negative) Urine Nitrite (Negative) Urine Bilirubin (Negative) Urine Urobilinogen (0.2-1.0) Ur Leukocyte Esterase (Negative) Urine RBC (0-2) Urine WBC (0-5) Ur Squamous Epith Cells (None-Few) Urine Bacteria (None) SARS-CoV-2 (PCR) Negative SARS-CoV-2 (Negative) Influenza Type A (PCR) Negative PCR FLU A (Negative) Influenza Type B (PCR) Negative PCR FLU B (Negative) RSV (PCR) Negative PCR RSV (Negative) Lab Acknowledgement POC Troponin I 0.07 H (0.01-0.04) ng/ml 10/21/23 10/21/23 10/21/23 Range/Units 01:15 07:06 09:14 WBC 14.54 H (4.50-11.00) K/uL RBC 3.08 L (4.30-5.90) m/uL Hgb 10.2 L (13.5-17.5) gm/dL Hct 32.2 L (37.0-53.0) % MCV 105 H (80-100) fL MCH 33 (26-34) pg MCHC 32 (32-36) gm/dL RDW Coeff of Annabelle 15.5 (11.5-15.5) % Plt Count 255 (140-440) K/uL Neut % (Auto) 88.4 H (42.0-72.0) % Lymph % (Auto) 5.4 L (20-44) % [place] % (Auto) 5.8 (0.0-11.0) % Eos % (Auto) 0.1 (0.0-7.0) % Baso % (Auto) 0.1 (0.0-3.0) % Neut # (Auto) 12.90 H (1.7-7.0) K/uL Lymph # (Auto) 0.80 L (0.90-2.90) K/uL [place] # (Auto) 0.80 (0.00-0.90) K/UL Eos # (Auto) 0.00 (0.00-0.50) K/uL Baso # (Auto) 0.00 (0.00-0.30) K/uL Abs Immat Gran (auto) 0.00 (0.00-0.30) K/uL Imm/Tot Granulo (auto) 0.2 % D-Dimer Quant (PE/DVT) 0.60 H (0.00-0.50) ug/ml VBG pH (7.32-7.43) VBG pCO2 (40-50) mmHG VBG pO2 (25-47) mmHG VBG HCO3 (21-28) mmol/L Sodium 141 (135-149) mmol/L Potassium 3.1 L (3.6-5.1) mmol/L Chloride 104 (96-114) mmol/L Carbon Dioxide 28 (20-32) mmol/L Anion Gap 9 (7-15) mEq/L BUN 54 H (7-30) mg/dL Creatinine 2.1 H (0.5-1.5) mg/dL Estimated Creat Clear 27.39 Estimated GFR 30 ml/min Glucose 128 H (60-115) mg/dL Lactate (0.5-1.9) mmol/L Calcium 8.9 (8.4-10.6) mg/dL Total Bilirubin (0.1-1.5) mg/dL Direct Bilirubin (0.0-0.5) mg/dL AST (12-35) U/L ALT (4-50) U/L Alkaline Phosphatase (40-150) U/L Troponin I 0.07 H* (0.01-0.04) ng/mL C-Reactive Protein (0.5-1.0) mg/dL NT-Pro-B Natriuret Pep 42974 pg/mL Total Protein (6.0-8.3) g/dL Albumin (3.3-5.0) g/dL Urine Color Yellow (Yellow) Urine Appearance Clear (Clear) Urine pH 5.0 (5.0-8.5) Ur Specific [place] 1.015 (1.000-1.030) Urine Protein Negative (Negative) Urine Glucose (UA) Negative (Negative) Urine Ketones Negative (Negative) Urine Blood Negative (Negative) Urine Nitrite Negative (Negative) Urine Bilirubin Negative (Negative) Urine Urobilinogen 0.2 (0.2-1.0) Ur Leukocyte Esterase Negative (Negative) Urine RBC 0-2 (0-2) Urine WBC 0-2 (0-5) Ur Squamous Epith Cells Few (None-Few) Urine Bacteria None (None) SARS-CoV-2 (PCR) (Negative) Influenza Type A (PCR) (Negative) Influenza Type B (PCR) (Negative) RSV (PCR) (Negative) Lab Acknowledgement Test Added POC Troponin I (0.01-0.04) ng/ml 10/21/23 10/21/23 Range/Units 10:13 13:05 WBC (4.50-11.00) K/uL RBC (4.30-5.90) m/uL Hgb (13.5-17.5) gm/dL Hct (37.0-53.0) % MCV (80-100) fL MCH (26-34) pg MCHC (32-36) gm/dL RDW Coeff of Annabelle (11.5-15.5) % Plt Count (140-440) K/uL Neut % (Auto) (42.0-72.0) % Lymph % (Auto) (20-44) % [place] % (Auto) (0.0-11.0) % Eos % (Auto) (0.0-7.0) % Baso % (Auto) (0.0-3.0) % Neut # (Auto) (1.7-7.0) K/uL Lymph # (Auto) (0.90-2.90) K/uL [place] # (Auto) (0.00-0.90) K/UL Eos # (Auto) (0.00-0.50) K/uL Baso # (Auto) (0.00-0.30) K/uL Abs Immat Gran (auto) (0.00-0.30) K/uL Imm/Tot Granulo (auto) % D-Dimer Quant (PE/DVT) (0.00-0.50) ug/ml VBG pH (7.32-7.43) VBG pCO2 (40-50) mmHG VBG pO2 (25-47) mmHG VBG HCO3 (21-28) mmol/L Sodium (135-149) mmol/L Potassium (3.6-5.1) mmol/L Chloride (96-114) mmol/L Carbon Dioxide (20-32) mmol/L Anion Gap (7-15) mEq/L BUN (7-30) mg/dL Creatinine (0.5-1.5) mg/dL Estimated Creat Clear Estimated GFR ml/min Glucose (60-115) mg/dL Lactate (0.5-1.9) mmol/L Calcium (8.4-10.6) mg/dL Total Bilirubin (0.1-1.5) mg/dL Direct Bilirubin (0.0-0.5) mg/dL AST (12-35) U/L ALT (4-50) U/L Alkaline Phosphatase (40-150) U/L Troponin I 0.08 H* (0.01-0.04) ng/mL C-Reactive Protein (0.5-1.0) mg/dL NT-Pro-B Natriuret Pep pg/mL Total Protein (6.0-8.3) g/dL Albumin (3.3-5.0) g/dL Urine Color (Yellow) Urine Appearance (Clear) Urine pH (5.0-8.5) Ur Specific [place] (1.000-1.030) Urine Protein (Negative) Urine Glucose (UA) (Negative) Urine Ketones (Negative) Urine Blood (Negative) Urine Nitrite (Negative) Urine Bilirubin (Negative) Urine Urobilinogen (0.2-1.0) Ur Leukocyte Esterase (Negative) Urine RBC (0-2) Urine WBC (0-5) Ur Squamous Epith Cells (None-Few) Urine Bacteria (None) SARS-CoV-2 (PCR) (Negative) Influenza Type A (PCR) (Negative) Influenza Type B (PCR) (Negative) RSV (PCR) (Negative) Lab Acknowledgement Test Added POC Troponin I (0.01-0.04) ng/ml ECG Data Attestation: I personally reviewed and interpreted this ECG as follows: (Atrial fibrillation with right bundle-branch block. Baseline irritability. Rate of 71) Critical Care Time Critical Care Time Critical Care Time: Yes Attestation: The patient required my highest level preparedness to intervene emergently and I personally spent this critical care time directly and personally managing the patient. This critical care time included: Obtaining a history; Examining the patient; Pulse oximetry; Ordering and reviewing of studies; Arranging urgent treatment with development of a management plan; Evaluation of patients response to treatment; Frequent reassessment discussions with other providers. This critical care time was performed to assess and manage the high probability of imminent life-threatening deterioration that could result in multiorgan failure. It was exclusive of separate billable procedures and treating other patients and teaching time. Total Critical Care Time in Minutes: 60 Discharge Plan Discharge Clinical Impression: Cellulitis Patient Disposition: Admitted As Observation Condition: Stable
--- NOTE | 2023-10-21 01:10 | ED.NURSE ---
Patient has significant redness noted to folds, cleansed and zinc cream applied.
--- NOTE | 2023-10-21 01:15 | CRLHL7_ITS ---
For Patients: As a result of the Cures Act, medical imaging exams and procedure reports are released immediately into your electronic medical record. You may view this report before your referring provider. If you have questions, please contact your health care provider. INDICATION: Weakness, mild hypoxia. TECHNIQUE: Chest 1 view. COMPARISON: 02/14/2022. FINDINGS: Cardiovascular and mediastinum: Stable cardiomegaly. Median sternotomy and left-sided cardiac conduction device, unchanged. Lungs and pleural spaces: Left retrocardiac streaky opacities. No pleural effusions or pneumothorax. Bones and soft tissues: Degenerative changes of the spine and shoulders. IMPRESSION: Left retrocardiac streaky opacities, may represent atelectasis or infiltrates. Dictated by Graham Schwarz MD @ 10/21/2023 2:18:29 AM (Electronically Signed)
[2023-10-21 01:20] LABS: PCO2 VBG 42 mmHG (40-50); pH VBG 7.464 (7.32-7.43)
[2023-10-21 01:21] LABS: HCO3 VBG 30 mmol/L (21-28); PO2 VBG 28.9 mmHG (25-47)
[2023-10-21 01:24] LABS: Basophils Percent Auto 0.1 % (0.0-3.0); Eosinophils Percent Auto 0.2 % (0.0-7.0); Hematocrit 36.4 % (37.0-53.0); Hemoglobin* 11.4 gm/dL (13.5-17.5); Immature Granulocytes Pct Auto 1.3 %; Lymphocytes Percent Auto 3.7 % (20-44); Mean Corpuscular HGB Conc 31 gm/dL (32-36); Mean Corpuscular Hemoglobin 33 pg (26-34); Mean Corpuscular Volume 104 fL (80-100); Monocytes Percent Auto 6.7 % (0.0-11.0); Platelet Count* 280 K/uL (140-440); RDW Coefficient of Variation % 15.6 % (11.5-15.5); Red Blood Count 3.49 m/uL (4.30-5.90); White Blood Count* 16.27 K/uL (4.50-11.00)
[2023-10-21 01:25] LABS: Chloride* 100 mmol/L (96-114)
--- OUTSIDE RECORDS SUMMARY | 2023-10-21 01:25 | XMS_ITS | Clinical Summary ---
Author Name Unknown Organization [place] Address [facility] 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 Place 1 tablet [...] Department Care Team Description 09/13/2023 Ancillary Procedure [facility] [address] [place] [address] [place] [phone] Chris De Leon MD Sustained VT (ventricular tachycardia) (H); 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 08/08/2023 Telephone [facility] [address] [place] [address] Ann Leos, RN Direct Oral Anticoagulant 08/07/2023 Telephone [facility] [address] [facility] [address] [place] [phone] Eve Santos, SIENNA from Last 3 Months [...] Comments Blood Pressure 104/66 09/28/2022 12:58 PM RESEARCH FELLOW Pulse 64 09/28/2022 12:58 PM RESEARCH FELLOW Temperature 36.6 ??C (97.9 ??F) 07/04/2021 12:03 PM C DT Respiratory Rate 16 07/04/2021 4:00 PM CDT Oxygen Saturation 97% 09/28/2022 12:58 PM RESEARCH FELLOW Inhaled Oxygen Concentration - - Weight 111.1 kg (245 lb) 09/28/2022 12:58 PM RESEARCH FELLOW Height 180.3 cm (5' 11) 09/28/2022 12:58 PM RESEARCH FELLOW Body Mass Index 34.17 09/28/2022 12:58 PM RESEARCH FELLOW Plan of Treatment Upcoming Encounters Date Type Department Care Team (Late st Contact Info) Description 12/19/2023 9:45 AM CDT Office Visit [facility] [address] [place] [phone] Trudi Grayson APRN DIRECTOR DIABETES [address] [place] [address] Steven Canchola MD [address] [place] [id number] 12/27/2023 Ancillary Procedure [facility] [address] [facility] [address] [place] [phone] Chris De Leon MD [address] [place] [address] [...] this topic Medical Devices Implanted Type Area Jewelry Internship Device Identifier Shelf Expiration Date Model / Serial / Lot Icd Resonate El Vr Df4 - [id number] Implanted:Qty : 1 on 07/04/2021 at [facility] ICD [employer] 09/09/2021 D432 / [id number] / [id number] Lead Wires- Right Atrium-02/04/20 16 Implanted:03/2016 by Timothy Smith MD (Quantity not on file) Explanted:12/2020 (Quantity not on file) Lead Wires- Right Atrium [employer] 2088TC-52 / [id number] / Lead Wires- Right Ventricle-02/03 Implanted:03/2016 by Timothy Smith MD (Quantity not on file) Explanted:12/2020 (Quantity not on file) Lead Wires- Right Ventricle [employer] 2088TC-58 / [id number] / Lead [place] Endotak Df4 Af 59 Cm 0272 - [id number] Implanted:Qty : 1 on 07/04/2021 at [facility] Leads [employer] 04/07/2023 0272 / [id number] / [id number] Pacemaker-Dino Sci Implanted:03/2016 by Timothy Smith MD (Quantity not on file) Explanted:12/2020 (Quantity not on file) Pacemaker [employer] [address] L121 / [id number] / Procedures Procedure Name Priority Date/Time Associated Diagnosis Comments INTERROGATION DEVICE EVAL REMOTE ICD UP TO 90 Routine 09/13/2023 11:52 AM RESEARCH FELLOW Sustained VT (ventricular tachycardia) (H) ICD (implantable cardioverter-defib 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 from Last 3 Months Results * INTERROGATION DEVICE EVAL REMOTE ICD UP TO 90 (09/13/2023 11:52 AM RESEARCH FELLOW) Date Time Interrogation Session [id number] [employer] Implantable Pulse Generator Jewelry Internship [employer]IC Implantable Pulse Generator Model D432 RESONATE EL ICD [employer]ONIC Implantable Pulse Generator Serial Number [id number] [employer]ONIC Type Interrogation Session Remote Scheduled [facility] Clinic Name [facility] Implantable Pulse Generator Type Defibrillator MEDTRONIC Implantable Pulse Generator Implant Date 20210704 MEDTRONIC Implantable Lead Jewelry Internship [employer]ONIC Implantable Lead Model 0272 Endotak [place] 4-Site S MEDTRONIC Implantable Lead Serial Number [id number] MEDTRONIC Implantable Lead Implant Date 20210704 MEDTRONIC [...] Reformation MED[employer]ONIC Capacitor Last Charge Date Time [id number] [employer]ONIC Capacitor Charge Time 8.9 s MEDTRONIC [...] MEDTRONIC Therapy Statistic Total Date Time End [id number] MEDTRONIC Episode Statistic Recent Count 0 MEDTRONIC [...] MEDTRONIC Episode Statistic Recent Date Time Start [id number] MEDTRONIC Episode Statistic Recent Date Time End [id number] MEDTRONIC Episode Statistic Recent Date Time Start 06144832528020 MEDTRONIC Episode Statistic Recent Date Time End [id number] MEDTRONIC Episode Statistic Recent Date Time Start [id number] MEDTRONIC Episode Statistic Recent Date Time End [id number] MEDTRONIC Episode Statistic Recent Date Time Start [id number] MEDTRONIC Episode Statistic Recent Date Time End [id number] MEDTRONIC Episode Identifier [id number] [employer]TRONIC Episode Type Category Periodic EGM [employer]ONIC Episode Date Time [id number] [employer]IC Episode Identifier [id number] [employer]IC Episode Type Category Other MEDTRONIC Episode Date Time [id number] [employer] Anatomical Region Laterality Modality Other 09/13/2023 12:4 1 AM RESEARCH FELLOW Narrative 09/25/2023 10:41 AM RESEARCH FELLOW [employer] Resonate (S) ICD Remote Device Check GPS FIELD DATA COLLECTOR: 17 % ?? Mode: VVIR 50-130 ?? Presenting Rhythm: VS with occasional GPS FIELD DATA COLLECTOR ?? Historical Underlying Rhythm: AF 60-80's bpm [...] of VT with ATP - Essentio PPM ([id number]): sustained VT, prompted upgrade to ICD Care Plan: meets all criteria for q2yr thresholds, will be due 08/2024. Scheduled remote in 3 months. ??OV with Dr. Canchola on 12/19/2023. Sent results and plan via [employer]. EC RN I have reviewed and interpreted the device interrogation, settings, programming and nurse's summary. The device is functioning within normal device parameters. I agree with the current findings, assessment and plan. Chris Hinds MD [facility] C[facility] SERVICES ORDERABLES from Last 3 Months Advance Directives For more information, please contact: [phone] Latest Code Status on File Code Status Date Activated Date Inactivated Comments Full Code 02/04/2016 9:52 AM 07/04/2021 11:49 AM Code Status History Code Status Date Activated Date Inactivated Comments Full Code 02/02/2016 9:20 PM 02/04/2016 9:52 AM Full Code 02/01/2012 2:37 PM 02/04/2012 6:16 PM Care Teams Clinical Operations Leader Relationship Specialty Start Date End Date Graham Licona MD [facility] [address] [place] [address] PCP - General Family Medicine 06/30/21 Trudi Grayson APRN DIRECTOR DIABETES [address] [id number] Assigned Heart and Vascular Provider 10/07/22 Steven Canchola MD [address] [place] [id number] Cardiovascular Disease 07/12/23
--- OUTSIDE RECORDS SUMMARY | 2023-10-21 01:25 | XMS_ITS | Encounter Summary ---
Author Name Unknown Organization [place] Address [address] [place] [address] Care Team Providers Care Buyers' Agent Name Role Phone Graham Licona MD Primary Care Provider [phone] Trudi Grayson APRN MACHINE I TRIMMER Unavailable [phone] Steven Canchola MD Unavailable + Encounter Details Date Type Department Care Team (Late st Contact Info) Description 08/07/2023 Telephone [facility] [address] [facility] [address] [place] [address] Eve Santos, SIENNA Social History Tobacco [...] Grayson APRN CNP - 08/07/2023 11:52 AM MEN'S GARMENT FITTER Reviewed results of heart logic. In the setting of no heart failure symptoms, shortness of breath, weight gain, or significant edema. No new recommendations at this time. Continue to monitor symptoms closely. Thanks Trudi 'S GARMENT FITTER * Telephone Encounter - Eve Santos RN - 08/07/2023 10:21 AM CST [...] an update to Trudi Grayson. GG RN 'S GARMENT FITTER documented in this encounter Plan of Treatment Upcoming Encounters Date Type Department Care Team (Late st Contact Info) Description 12/19/2023 9:45 AM CDT Office Visit [facility] [address] [facility] [address] [place] [phone] Trudi Grayson APRN MACHINE I TRIMMER [address] [place] [id number] Steven Canchola MD [address] [place] [id number] 12/27/2023 Ancillary Procedure [facility] [address] [facility] [address] [place] [phone] Chris De Leon MD [address] [place] [id number] documented as of this encounter Visit Diagnoses Not on filedocumented in this encounter Care Teams Buyers' Agent Relationship Specialty Start Date End Date Graham Licona MD [facility] [address] [place] [address] PCP - General Family Medicine 06/30/21 Trudi Grayson APRN MACHINE I TRIMMER [address] [address] Assigned Heart and Vascular Provider 10/07/22 Steven Canchola MD [address] [place] [id number] Cardiovascular Disease 07/12/23 documented as of this encounter
--- OUTSIDE RECORDS SUMMARY | 2023-10-21 01:25 | XMS_ITS | Encounter Summary ---
Author Name Unknown Organization [place] Address [address] [place] [address] Care Team Providers Care Supervisor [employer]ar [employer] Name Role Phone Graham Licona MD Primary Care Provider [phone] Trudi Grayson APRN DURABILITY ENGINEER Unavailable [phone] Reason for Referral * CV Testing (Routine) - Pending Review Specialty Diagnoses / Procedures Referred By Mely turner Referred To Contact Diagnoses Sustained VT (ventricular tachycardia) (H) ICD (implantable cardioverter-defib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 Procedures Cardiac Device Check - Remote Chris De Leon MD [address] [place] [address] Referral ID Status Reason Start Date Expiration Date V isits Requested Visits Authorized [id number] Pending Review 06/11/2023 06/10/2024 250 250 * Consultation (Routine: Next available opening) - Pending Review Specialty Diagnoses / Procedures Referred By Mely turner Referred To Contact Cardiovascular Disease Diagnoses Sustained VT (ventricular tachycardia) (H) ICD (implantable cardioverter-defibrill ator) in place Trudi Grayson APRN DURABILITY ENGINEER [address] [place] [address] Referral ID Status Reason Start Date Expiration Date V isits Requested Visits Authorized [id number] Pending Review 06/11/2023 06/10/2024 1 1 Question Answer Follow-up with: Other Flanging Machine Operator Reason for follow-up: General Cardiology Scheduling Instructions: [facility] will call you to coordinate your care as prescribed by your provider. If you have concerns about scheduling, please call [phone]. Comments [facility] will call you to coordinate your care as prescribed by your provider. If you have concerns about scheduling, please call [phone]. Reason for Visit * CV Testing (Routine) - Closed Specialty Diagnoses / Procedures Referred By Mely turner Referred To Contact Diagnoses Cardiac pacemaker in situ Procedures Cardiac Device Check - Remote Basil Guadalupe MD [address] [place] [address] Referral ID Status Reason Start Date Expiration Date Visits Re quested Visits Authorized [id number] Closed 03/05/2023 03/04/2024 100 100 Encounter Details Date Type Department Care Team (Latest Contact Info) Description 06/11/2023 Ancillary Procedure [facility] [address] [facility] [address] [place] [phone] Basil Guadalupe MD [address] [employer] [address] [place] [address] Sustained VT (ventricular tachycardia) (H) (Primary Dx); [...] 9:45 AM CDT Office Visit [facility] [place] [address] [facility] [address] [place] [phone] Trudi Grayson APRN DURABILITY ENGINEER [address] [place] [id number] Steven Canchola MD [address] [place] [id number] 12/27/2023 Ancillary Procedure [facility] [address] [facility] [address] [place] [address] Chris De Leon MD [address] [place] [id number] Scheduled Orders Name Type Priority Associated Diagnoses [...] ICD UP TO 90 (09/13/2023 11:52 AM COLLAR TACKER) Date Time Interrogation Session [id number] [employer]IC Implantable Pulse Generator Infantry Assaultman [employer]ONIC Implantable Pulse Generator Model D432 RESONATE EL ICD [employer]TRONIC Implantable Pulse Generator Serial Number [id number] [employer]ONIC Type Interrogation Session Remote Scheduled [facility] Clinic Name [facility]IC Implantable Pulse Generator Type Defibrillator [employer]TRONIC Implantable Pulse Generator Implant Date 20210704 MEDTRONIC Implantable Lead Infantry Assaultman [employer]TRONIC Implantable Lead Model 0272 Endotak [place] 4-Site S MEDTRONIC Implantable Lead Serial Number [id number] MEDTRONIC Implantable Lead Implant Date 20210704 MEDTRONIC Implantable Lead Polarity Type Bipolar Lead [employer]TRONIC Implantable Lead Location Detail 1 UNKNOWN MEDTRONIC Implantable Lead Location Right Ventricle [employer]ONIC Implantable Lead Connection Status Connected [employer]IC Brandon Setting Mode (NBG Code) VVIR [employer]TRONIC Branodn Setting Lower Rate Limit 50 {beats}/ min [...] Reformation [employer]TRONIC Capacitor Last Charge Date Time [id number] MEDTRONIC Capacitor Charge Time 8.9 s MEDTRONIC [...] Category Periodic EGM [employer]TRONIC Episode Date Time [id number] [employer]IC Episode Identifier [id number] [employer]IC Episode Type Category Other [employer]TRONIC Episode Date Time [id number] [employer]IC Anatomical Region Laterality Modality Other 09/13/2023 12:4 1 AM COLLAR TACKER Narrative 09/25/2023 10:41 AM COLLAR TACKER [employer] Resonate (S) ICD Remote Device Check JUNIOR ACCOUNTANT: 17 % ?? Mode: VVIR 50-130 ?? Presenting Rhythm: VS with occasional JUNIOR ACCOUNTANT ?? Historical Underlying Rhythm: AF 60-80's bpm [...] of VT with ATP - Essentio PPM ([id number]): sustained VT, prompted upgrade to ICD Care Plan: meets all criteria for q2yr thresholds, will be due 08/2024. Scheduled remote in 3 months. ??OV with Dr. Canchola on 12/19/2023. Sent results and plan via Music Messenger (MM). EC RN I have reviewed and interpreted the device interrogation, settings, programming and nurse's summary. The device is functioning within normal device parameters. I agree with the current findings, assessment and plan. Chris Hinds MD CV CARDIAC SERVICES ORDERABLES * INTERROGATION DEVICE EVAL REMOTE ICD UP TO 90 (06/11/2023 11:15 AM CDT) Date Time Interrogation Session [id number] [employer]IC Implantable Pulse Generator Infantry Assaultman [employer]TRONIC Implantable Pulse Generator Model D432 RESONATE EL ICD [employer]TR[employer]IC Implantable Pulse Generator Serial Number [id number] MEDTRONIC Type Interrogation Session Remote [facility]IC Clinic Name [place] [facility]TRONIC Implantable Pulse Generator Type Defibrillator MEDTRONIC Implantable Pulse Generator Implant Date 20210704 MEDTRONIC Implantable Lead Infantry Assaultman [employer] [employer]TRONIC Implantable Lead Model 0272 Endotak [place] 4-Site S MEDTRONIC Implantable Lead Serial Number [id number] MEDTRONIC Implantable Lead Implant Date 20210704 MEDTRONIC [...] ms MEDTRONIC Battery Date Time of Measurements [id number] [employer]TRONIC Battery Status Beginning of Service [employer]TRONIC Battery Remaining Longevity 138 mo MEDTRONIC Battery Remaining Percentage 98 % MEDTRONIC Capacitor Charge Type Reformation MEDTRONIC Capacitor Last Charge Date Time [id number] MEDTRONIC Capacitor Charge Time 8.9 s MEDTRONIC Capacitor Charge Type Shock MEDTRONIC Capacitor Last Charge Date Time 27164409151327 MEDTRONIC Capacitor Charge Time 6.8 s MEDTRONIC Capacitor Charge Energy 41 J MEDTRONIC Brandon Statistic Date Time Start MEDTRONIC Brandon Statistic Date Time End [id number] [employer]IC Brandon Statistic RV Percent Paced 18 % [employer]TRONIC Therapy Statistic Recent Shocks Delivered 0 MEDTRONIC Therapy Statistic Recent Shocks Aborted 0 MEDTRONIC Therapy Statistic Recent ATP Delivered 0 [employer]TRONIC Therapy Statistic Recent Date Time Start MEDTRONIC Therapy Statistic Recent Date Time End [id number] MEDTRONIC Therapy Statistic Total Shocks Delivered 6 MEDTRONIC Therapy Statistic Total Shocks Aborted 0 MEDTRONIC Therapy Statistic Total ATP Delivered 34 MEDTRONIC Therapy Statistic Total Date Time End [id number] MEDTRONIC Episode Statistic Recent Count 0 MEDTRONIC [...] MEDTRONIC Episode Statistic Recent Date Time Start [id number] MEDTRONIC Episode Statistic Recent Date Time End [id number] [employer]TRONIC Episode Statistic Recent Date Time Start [id number] MEDTRONIC Episode Statistic Recent Date Time End 55890392308867 MEDTRONIC Episode Statistic Recent Date Time Start [id number] [employer]TRONIC Episode Statistic Recent Date Time End [id number] [employer]TRONIC Episode Statistic Recent Date Time Start 03146281173298 MEDTRONIC Episode Statistic Recent Date Time End [id number] MEDTRONIC Episode Statistic Recent Date Time Start MEDTRONIC Episode Statistic Recent Date Time End [id number] MEDTRONIC Episode Identifier [id number] [employer]TRONIC Episode Type Category Periodic EGM [employer]TRONIC Episode Date Time [id number] MEDTRONIC Episode Identifier [id number] [employer]TRONIC Episode Type Category Other MEDTRONIC Episode Date Time [id number] [employer]IC Anatomical Region Laterality Modality Other 06/11/2023 12:4 1 AM CDT Narrative 06/11/2023 1:01 PM CDT [employer] Resonate (S) ICD Remote Device Check ?? JUNIOR ACCOUNTANT: 18 % ?? Mode: VVIR 50-130 ?? Presenting Rhythm: VS and JUNIOR ACCOUNTANT ?? Historical Underlying Rhythm: AF 60-80's bpm [...] of VT with ATP - Essentio PPM ([id number]): sustained VT, prompted upgrade to ICD Care [...] place documented in this encounter Care Teams Supervisor Briar [employer] Relationship Specialty Start Date End Date Graham Licona MD [facility] [address] [place] [address] PCP - General Family Medicine 06/30/21 Trudi Grayson APRN DURABILITY ENGINEER [address] [address] Assigned Heart and Vascular Provider 10/07/22 documented as of this encounter
--- OUTSIDE RECORDS SUMMARY | 2023-10-21 01:25 | XMS_ITS | Encounter Summary ---
Author Name Unknown Organization [place] Address [address] [facility] [place] [address] Care Team Providers Care Survival Specialist Name Role Phone Graham Licona MD Primary Care Provider [phone] Trudi Grayson APRN CUSTOMER COUNTER ASSOCIATE Unavailable [phone] Steven Canchola MD Unavailable + Reason for Visit * Reason Onset Date Comments Direct Oral Anticoagulant 08/08/2023 Encounter Details Date Type Department Care Team (Late st Contact Info) Description 08/08/2023 Telephone [facility] [address] [place] [address] Ann Leos RN Direct Oral [...] Juvenal Burnham RN - 08/09/2023 1:16 PM OVERNIGHT CASHIER Robbyis ordered per Trudi Ruffin guidelines. Patient requests [facility] mail out services. Juvenal Burnham RN August 09, 2023 1:17 PM NIGHT CASHIER * Telephone Encounter - Trudi Grayson APRN CNP - 08/09/2023 11:40 AM OVERNIGHT CASHIER Thanks for the update. Can we make sure we sent a prescription so he does not run out. Thanks Trudi NIGHT CASHIER * Telephone Encounter - Juvenal Burnham RN - 08/09/2023 8:19 AM OVERNIGHT CASHIER Patient states he has not been taking [...] Burnham RN August 09, 2023 8:23 AM NIGHT CASHIER * Telephone Encounter - Trudi Grayson APRN CNP - 08/08/2023 5:34 PM OVERNIGHT CASHIER Please see message below Patient has not been compliant with anticoagulation (refills). Could we please reach out to patientand see if he is faithfully taking Eliquis? If cost of Eliquis is prohibitive, consider switching to Coumadin if agreeable. Thanks Trudi NIGHT CASHIER * Telephone Encounter - Ann Leos RN [...] anticoagulation protocol Ann Leos RN Anticoagulation Clinic NIGHT CASHIER documented in this encounter Plan of Treatment Upcoming Encounters Date Type Department Care Team (Late st Contact Info) Description 12/19/2023 9:45 AM CDT Office Visit [address] [place] [phone] Trudi Grayson APRN CUSTOMER COUNTER ASSOCIATE [address] [place] [address] Steven Canchola MD [address] [place] [address] 12/27/2023 Ancillary Procedure [facility] [address] [place] [address] [place] [phone] Chris De Leon MD [address] [place] [address] documented as of this encounter Visit Diagnoses Diagnosis Persistent atrial fibrillation (H) Atrial fibrillation documented in this encounter Care Teams Survival Specialist Relationship Specialty Start Date End Date Graham Licona MD [facility] [address] [place] [address] PCP - General Family Medicine 06/30/21 Trudi Grayson APRN CUSTOMER COUNTER ASSOCIATE [address] [place] [address] Assigned Heart and Vascular Provider 10/07/22 Steven Canchola MD [address] [place] [address] Cardiovascular Disease 07/12/23 documented as of this encounter
--- OUTSIDE RECORDS SUMMARY | 2023-10-21 01:25 | XMS_ITS | Referral Summary ---
Author Name Unknown Organization [place] Address [address] [place] [address] Care Team Providers Care Hospitality Manager Name Role Phone [place] Licona MD Primary Care Provider [phone] Trudi Grayson APRN PRESS CLIPPINGS CUTTER AND PASTER Unavailable [phone] Steven Canchola MD Unavailable + Encounters Date Type Department Care Team Description 09/13/2023 Ancillary Procedure [facility] [address] [facility] [address] [place] [address] Chris De Leon MD Sustained VT (ventricular tachycardia) (H); 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 08/08/[address] [facility] [address] [place] [address] Ann Leos, SIENNA Direct Oral Anticoagulant 08/07/2023 Telephone [facility] [address] [facility] [address] [place] [phone] Eve Santos RN from Last 3 Months [...] Active fluticasone (FLONASE) 50 MCG/ACT nasal spray [place] 1 spray into both nostrils daily 0 [...] MG sublingual tabletIndications:Cor onary artery disease involving mash[place] coronary artery of mashpee heart without angina pectoris Place 1 tablet [...] Comments Blood Pressure 104/66 09/28/2022 12:58 PM SPRAY GUNNER Pulse 64 09/28/2022 12:58 PM SPRAY GUNNER Temperature 36.6 ??C (97.9 ??F) 07/04/2021 12:03 PM C DT Respiratory Rate 16 07/04/2021 4:00 PM CDT Oxygen Saturation 97% 09/28/2022 12:58 PM SPRAY GUNNER Inhaled Oxygen Concentration - - Weight 111.1 kg (245 lb) 09/28/2022 12:58 PM SPRAY GUNNER Height 180.3 cm (5' 11) 09/28/2022 12:58 PM SPRAY GUNNER Body Mass Index 34.17 09/28/2022 12:58 PM SPRAY GUNNER Plan of Treatment Upcoming Encounters Date Type Department Care Team (Late st Contact Info) Description 12/19/2023 9:45 AM CDT Office Visit [facility] [address] [place] [address] Trudi Grayson, FIBREGLASS GUN HAND PRESS CLIPPINGS CUTTER AND PASTER [address] [id number] Steven Canchola MD [address] [place] [address] 12/27/2023 Ancillary Procedure [facility] [address] [place] [address] Chris De Leon MD [address] [place] [address] Medical Devices Implanted Type Area Mutual Fund Accountant Device Identifier Shelf Expiration Date Model / Serial / Lot Icd Resonate El Vr Df4 - [id number] Implanted:Qty : 1 on 07/04/2021 at [facility] ICD [employer] 09/09/2021 D432 / [id number] / [id number] Lead Wires- Right Atrium-02/04/20 16 Implanted:03/2016 by Timothy Smith MD (Quantity not on file) Explanted:12/2020 (Quantity not on file) Lead Wires- Right Atrium [employer] 2087TC-52 / [id number] / Lead Wires- Right Ventricle-02/03 Implanted:03/2016 by Timothy Smith MD (Quantity not on file) Explanted:12/2020 (Quantity not on file) Lead Wires- Right Ventricle [employer] 8TC-58 / [id number] / Lead [place] End[place]ak Df4 Af 59 Cm 0272 - [id number] Implanted:Qty : 1 on 07/04/2021 at [facility] Leads [employer] 04/07/2023 0272 / [id number] / [id number] Pacemaker-Dino Sci Implanted:03/2016 by Timothy Smith MD (Quantity not on file) Explanted:12/2020 (Quantity not on file) Pacemaker [employer] [address] L121 / [id number] / Procedures Procedure Name Priority Date/Time Associated Diagnosis Comments INTERROGATION DEVICE EVAL REMOTE ICD UP TO 90 Routine 09/13/2023 11:52 AM SPRAY GUNNER Sustained VT (ventricular tachycardia) (H) ICD (implantable cardioverter-defib 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 from Last 3 Months Results * INTERROGATION DEVICE EVAL REMOTE ICD UP TO 90 (09/13/2023 11:52 AM SPRAY GUNNER) Date Time Interrogation Session [id number] [employer] Implantable Pulse Generator Mutual Fund Accountant [employer] Implantable Pulse Generator Model D432 RESONATE EL ICD [employer] Implantable Pulse Generator Serial Number [id number] [employer] Type Interrogation Session Remote Scheduled [employer] Clinic Name [place] [employer] Implantable Pulse Generator Type Defibrillator [employer] Implantable Pulse Generator Implant Date 20210704 [employer] Implantable Lead Mutual Fund Accountant [employer] Implantable Lead Model 0272 [place] 4-Site S [employer] Implantable Lead Serial Number [id number] [employer] Implantable Lead Implant Date 20210704 MEDTRONIC [...] ms [employer] Battery Date Time of Measurements [id number] [employer] Battery Status Beginning of Service [employer] Battery Remaining Longevity 150 mo [employer] Battery Remaining Percentage 100 % [employer] Capacitor Charge Type Reformation [employer] Capacitor Last Charge Date Time [id number] [employer] Capacitor Charge Time 8.9 s [employer]IC Capacitor Charge Type Shock [employer] Capacitor Last Charge Date Time [id number] [employer] Capacitor Charge Time 6.8 s [employer]TR[employer]IC Capacitor Charge Energy 41 J MEDTRONIC Brandon Statistic Date Time Start [id number] [employer]IC Brandon Statistic Date Time End [employer]TR[employer]IC Branodn Statistic RV Percent Paced 17 % MEDTRONIC [...] [employer] Therapy Statistic Total Date Time End [id number] [employer] Episode Statistic Recent Count 0 MEDTRONIC [...] MEDTRONIC Episode Statistic Recent Date Time Start [id number] [employer] Episode Statistic Recent Date Time End [id number] [employer] Episode Statistic Recent Date Time Start [id number] [employer] Episode Statistic Recent Date Time End [id number] [employer]IC Episode Statistic Recent Date Time Start [id number] [employer]IC Episode Statistic Recent Date Time End MEDTRONIC Episode Identifier [id number] [employer]IC Episode Type Category Periodic EGM [employer]IC Episode Date Time [id number] [employer] Episode Identifier [id number] [employer] Episode Type Category Other [employer]ONIC Episode Date Time [id number] [employer] Anatomical Region Laterality Modality Other 09/13/2023 12:4 1 AM SPRAY GUNNER Narrative 09/25/2023 10:41 AM SPRAY GUNNER [employer] Resonate (S) ICD Remote Device Check CERTIFIED PROCEDURAL CODER: 17 % ?? Mode: VVIR 50-130 ?? Presenting Rhythm: VS with occasional CERTIFIED PROCEDURAL CODER ?? Historical Underlying Rhythm: AF 60-80's bpm [...] of VT with ATP - [facility] PPM (8821-1688): sustained VT, prompted upgrade to ICD Care Plan: meets all criteria for q2yr thresholds, will be due 08/2024. Scheduled remote in 3 months. ??OV with Dr. Canchola on 12/19/2023. Sent results and plan via [employer]. EC RN I have reviewed and interpreted the device interrogation, settings, programming and nurse's summary. The device is functioning within normal device parameters. I agree with the current findings, assessment and plan. Chris Hinds MD [facility] ORDERABLES from Last 3 Months Advance Directives For more information, please contact: [phone] Latest Code Status on File Code Status Date Activated Date Inactivated Comments Full Code 02/04/2016 9:52 AM 07/04/2021 11:49 AM Code Status History Code Status Date Activated Date Inactivated Comments Full Code 02/02/2016 9:20 PM 02/04/2016 9:52 AM Full Code 02/01/2012 2:37 PM 02/04/2012 6:16 PM Care Teams Hospitality Manager Relationship Specialty Start Date End Date [place] Licona MD [facility] [address] [place] [address] PCP - General Family Medicine 06/30/21 Trudi [place] APRN PRESS CLIPPINGS CUTTER AND PASTER [address] [id number] Assigned Heart and Vascular Provider 10/07/22 Steven Canchola MD [address] [place] [id number] Cardiovascular Disease 07/12/23
--- OUTSIDE RECORDS SUMMARY | 2023-10-21 01:25 | XMS_ITS | Data Portability ---
Author Name Unknown Address [address] [place] [address] Phone [phone] Organization [facility], [facility] Address [address] [place] [address] Care Team Providers Care Admissions Coordinator Name Role Phone KIRT AKINSORY Primary Care Provider [phone] Assessment Encounter Date Assessment Date Assessment LastModified by Organization Details LastModified Time 09/07/2022 09/07/2022 81M with possible bladder mass. BPH with LUTS. 1) Bladder mass - review of CT and cystoscopy today confirm this is an intravesical median lobe of the prostate - there is no bladder tumor - this needs no specific follow-up 2) BPH/LUTS - continue tamsulosin 0.4 mg daily; he is satisfied with this and empties well - consider adding finasteride if worsening obstruction [email or web address] Not available 09/07/2022 11:10:29 Plan of Treatment Reminders Order Date Submit Date Provider Last Modified By Organization Details Last Modified Time Details Appointments None recorded. Lab urinalysis , dipstick 2021 022 ssamb [facility], [address], [place], [address], 10:24:02 Referral None recorded. Procedures None recorded. Surgeries None recorded. Imaging None recorded. Medication Orders None recorded. Patient TargetsNo targets recorded. Patient InstructionsNo instructions recorded. Reason for Referral None Reported. Results Created Date Observation Date Name Description Value Unit Range Abnormal Flag LastModifiedBy Organization Detail LastModifiedTime 09/07/20 22 09/07/2022 urina lysis , dipst ick Color-Status Yellow Not Available [facility] [address], [place], [address], 09/07/2022 10:23:24 09/07/20 22 09/07/2022 urina lysis , dipst ick Clarity-Stat us Clear Not Available [facility] [address], [place], [address], 09/07/2022 10:23:24 09/07/20 22 09/07/2022 urina lysis , dipst ick pH-Status 6.5 Not Available [facility] [address], [place], [address], 09/07/2022 10:23:24 07/26/20 22 06/06/2022 US, renal No observ ation record ed. Not Available 07/26/2022 15:43:15 07/26/20 22 07/26/2022 CT, urogr am No observ ation record ed. Not Available 07/26/2022 15:44:21 Result Notes None recorded. Problems Name Status Onset Date Resolution Date Notes Provider Name and Address Organization Details Recorded Time Mass of urinary bladder Active 09/07/20 [address] MD, PHD [address] [place] [address], [phone], [facility] 09/07/2022 11:08:48 Lower urinary tract symptoms due to benign prostatic hypertrophy Active 09/07/[address] MD, PHD [address] [place] [address], [phone], [facility] 09/07/2022 11:08:53 Problem Notes None recorded. Procedures Surgical History Date Name Laterality Status Provider Name and Address Organization Details Recorded Time 2 Cystoscopy- male completed Felice Acosta MD, PHD [address] [place] [address],[address], [address], [facility] 09/07/2022 11:08:37 2 Bladder Scan completed ABELARDO Nichole - [facility] 09/07/2022 10:23:21 Imaging Results Imaging Date Name Status LastModified by Organiz ation Details LastModified Time 06/06/2022 US, renal completed Information no t available 07/26/2022 15:43:15 07/26/2022 CT, urogram completed Information n ot available 07/26/2022 15:44:21 Procedure Notes None recorded. Medical Equipment None Reported. Allergies No known drug allergies Medications Name Sig Start Date Stop Date Status Note LastModified by Organization Details LastModified Time celecoxib 200 mg capsule TAKE ONE CAPSULE BY MOUTH TWICE A DAY WITH MEALS 09/07 completed Not Available Not Available Not Available furosemide 40 mg tablet active Not Available Not Available Not Available metolazone 2.5 mg tablet TAKE ONE TABLET BY MOUTH EVERY SUN, SUN, SUNDAY active Not Available Not Available No t Available metformin 500 mg tablet 09/07 completed Not Available Not Available Not Available atorvastati n 20 mg tablet TAKE ONE TABLET BY MOUTH EVERY DAY active Not Available Not Available No t Available bumetanide 2 mg tablet TAKE ONE TABLET BY MOUTH EVERY DAY active Not Available Not Available No t Available amiodarone 200 mg tablet TAKE ONE TABLET BY MOUTH EVERY DAY active Not Available Not Available No t Available metoprolol succinate ER 50 mg tablet,exte nded release 24 hr 09/07 completed Not Available Not Available Not Available hydrocodone 5 mg-acetamin ophen 325 mg tablet TAKE ONE-HALF TO ONE TABLET BY MOUTH EVERY 6 HOURS NEEDED 09/07 completed Not Available Not Available Not Available acyclovir 400 mg tablet TAKE ONE TABLET BY MOUTH THREE TIMES A DAY NEEDED FOR COLD SORES. active Not Available Not Available No t Available tramadol 50 mg tablet TAKE ONE TABLET BY MOUTH THREE TIMES A DAY NEEDED FOR PAIN active Not Available Not Available No t Available glimepiride 2 mg tablet active Not Available Not Available Not Available amoxicillin 875 mg tablet TAKE ONE TABLET BY MOUTH TWICE A DAY active Not Available Not Available No t Available tamsulosin 0.4 mg capsule TAKE ONE CAPSULE BY MOUTH EVERY DAY active Not Available Not Available No t Available levothyroxi ne 50 mcg tablet active Not Available Not Available Not Available omeprazole 20 mg capsule,del ayed release TAKE ONE CAPSULE BY MOUTH TWICE A DAY BEFORE MEALS active Not Available Not Available No t Available metoprolol succinate ER 25 mg tablet,exte nded release 24 hr active Not Available Not Available Not Available fluticasone propionate 50 mcg/actuati on nasal spray,suspe nsion APPLY TWO SPRAYS INTO EACH AFFECTED NOSTRIL EVERY DAY 09/07 completed Not Available Not Available Not Available amoxicillin 875 mg-potassiu m clavulanate 125 mg tablet TAKE ONE TABLET BY MOUTH TWICE DAILY FOR 7 DAYS 09/07 completed Not Available Not Available Not Available fenofibrate 160 mg tablet TAKE ONE TABLET BY MOUTH EVERY DAY WITH FOOD active Not Available Not Available No t Available Contour Next Test Strips USE TO TEST BLOOD SUGAR ONCE DAILY active Not Available Not Available No t Available Eliquis 2.5 mg tablet active Not Available Not Available No t Available Vitals Date Recorded Body height Body mass index (BMI) Body weight Provider Name and Address Organization Details Last Updated DateTime 09/07/2022 180.34 cm 33.3 kg/m2 831372.58 g Jeffrey goldstein [facility] 09/07/2022 10:19:27 Social History Question Answer Notes LastModified by Organizat ion Details LastModified Time Tobacco Smoking Status Never Smoker Jeffrey goldstein [facility] 09/07/2022 10:22:32 What Was The Date Of Your Most Recent Tobacco Screening? 09/07/2022 [facility] Information not available 09/07/2022 Sex: Male Functional Status None recorded. Mental Status None recorded. Family History Nothing Reported. Medical History Condition Response Diabetes Y Heart Disease Y Bleeding Disorder Y High Blood Pressure Y High Cholesterol Y Past Encounters Encounter ID Performer Location Encounter Start Date Encounter Closed Date Diagnosis/Indication [id number] Felice Acosta MD, PHD [facility] [address] [place] [address] 09/07/2022 09:51:45 09/13/2022 10:52:14 Nocturia Lower urinary tract symptoms due to benign prostatic hypertrophy Mass of urinary bladder Health Concerns Section Related Observation LastModified by Organization Detai ls LastModified Time None Recorded Concern Status LastModified by Organization Details LastModified Time None Recorded Advance Directives Directive None Recorded Payers Encounter Date Sequence Insurance Name Policy Number Policy Smart Covered Member ID Smart Member ID Guarantor Name 09/07/2022 1 [place] [id number] Haris Covingtonolive [id number] Haris Covingtonolive Notes Date Note Type Note Provider Name and Address Organization Details Recorded Time 09/07/2022 text/html HPI Notes: 81M with possible bladder mass Renal u/s done by nephrology for CKD. This showed mass at bladder base vs prostate. CT then done to eval further. Denies hematuria. No prior AUR or procedures. LUTS: FOS, on tamsulosin x years, stable Cr 2.2 UA today neg PVR today [address] Urogram (07/26/22): BPH with prostate effect on bladder, tiny left renal AML, no hydro, no suspicious lesions, + abd wall hernia PMH: CAD, HL, ocular melanoma, DM2, CKD, edema PSH: CABG, RIHR SocHx: Tob: never FamHx: no prostate ca or bladder ca Felice Acosta MD, PHD [address], [place], [address], [facility] 09/07/2022 11:10:42
--- OUTSIDE RECORDS SUMMARY | 2023-10-21 01:25 | XMS_ITS | Encounter Summary ---
Author Name Unknown Organization [place] Address [address] [place] [address] Care Team Providers Care Pressurised Container Filler Name Role Phone [place] Licona MD Primary Care Provider [phone] Trudi Grayson APRN BOX ESTIMATOR Unavailable [phone] Encounter Details Date Type Department Care Team (Late st Contact Info) Description 05/07/2023 [facility] [address] [facility] [address] [place] [phone] Karey Kay, RN Social History Tobacco Use [...] Description 12/19/2023 9:45 AM CDT Office Visit [facility] [place] [address] [facility] [address] [place] [address] Trudi [place]ayson APRN BOX ESTIMATOR [address] [place] [address] Steven Canchola MD [address] [place] [address] 12/27/2023 Ancillary Procedure [facility] [address] [facility] [address] [place] [phone] Chris De Leon MD [address] [place] [id number] documented as of this encounter Visit Diagnoses Not on filedocumented in this encounter Care Teams Pressurised Container Filler Relationship Specialty Start Date End Date [place] Licona MD [facility] [address] [place] [address] PCP - General Family Medicine 06/30/21 Trudi [place]ayson APRN BOX ESTIMATOR [address] [place] [address] Assigned Heart and Vascular Provider 10/07/22 documented as of this encounter
--- OUTSIDE RECORDS SUMMARY | 2023-10-21 01:25 | XMS_ITS | Encounter Summary ---
Author Name Unknown Organization [place] Address [address] [place] [address] Care Team Providers Care Business Integration Analyst Name Role Phone [place] Licona MD Primary Care Provider [phone] Trudi Grayson APRN CARTON FORMING MACHINE HELPER Unavailable [phone] Encounter Details Date Type Department Care Team (Late st Contact Info) Description 04/30/2023 [facility] [address] [facility] [address] [place] [phone] Karey Kay, RN Social History Tobacco Use [...] CDT Office Visit [facility] [place] [address] [place] [phone] Trudi Grayson APRN CARTON FORMING MACHINE HELPER [address] [place] [address] Steven Canchola MD [address] [place] [address] 12/27/2023 Ancillary Procedure [facility] [address] [facility] [facility] [address] [place] [address] Chris De Leon MD [address] [place] [id number] documented as of this encounter Visit Diagnoses Not on filedocumented in this encounter Care Teams Business Integration Analyst Relationship Specialty Start Date End Date [place] Licona MD [facility] [address] [place] [address] PCP - General Family Medicine 06/30/21 Trudi [place]ayson APRN CARTON FORMING MACHINE HELPER [address] [place] [id number] Assigned Heart and Vascular Provider 10/07/22 documented as of this encounter
--- OUTSIDE RECORDS SUMMARY | 2023-10-21 01:25 | XMS_ITS | Encounter Summary ---
Author Name Unknown Organization [place] Address [address] [place] [address] Care Team Providers Care Game Attendant Name Role Phone [place] Licona MD Primary Care Provider [phone] Trudi Grayson APRN MEDICAL RADIATION THERAPIST Unavailable [phone] Reason for Visit * Reason Onset Date Comments Implantable Devices 01/18/2023 Elevated Hea rtLogic Encounter Details Date Type Department Care Team (Late st Contact Info) Description 01/18/2023 Telephone [facility] [address] [facility] [address] [place] [address] Eve Santos, SIENNA [...] AM CDT Office Visit [facility] [place] [address] [facility] [address] [place] [phone] Trudi Grayson APRN MEDICAL RADIATION THERAPIST [address] [address] Steven Canchola MD [address] [place] [address] 12/27/2023 Ancillary Procedure [facility] [address] [facility] [address] [place] [phone] Chris De Leon MD [address] [place] [address] documented as of this encounter Visit Diagnoses Not on filedocumented in this encounter Care Teams Game Attendant Relationship Specialty Start Date End Date [place] Licona MD [facility] [address] [place] [address] PCP - General Family Medicine 06/30/21 Trudi [place] APRN MEDICAL RADIATION THERAPIST [address] [address] Assigned Heart and Vascular Provider 10/07/22 documented as of this encounter
--- OUTSIDE RECORDS SUMMARY | 2023-10-21 01:25 | XMS_ITS | Encounter Summary ---
Author Name Unknown Organization [place] Address [address] [place] [address] Care Team Providers Care Barber Shop Operator Name Role Phone Graham Licona MD Primary Care Provider [phone] Trudi Grayson APRN BORING MILL SET UP OPERATOR Unavailable [phone] Reason for Visit * CV Testing (Routine) - Closed Specialty Diagnoses / Procedures Referred By Contnghia t Referred To Contact Diagnoses Cardiac pacemaker in situ Procedures Cardiac Device Check - Remote Timothy Smith MD [facility] [address] [place] [address] Referral ID Status Reason Start Date Expiration Date Visits Re quested Visits Authorized [id number] Closed 08/16/2022 08/16/2023 100 100 Encounter Details Date Type Department Care Team (Latest Contact Info) Description 03/05/[address] [facility] Heart Care [address] [facility] [address] [place] [phone] Cardiac pacemaker in situ Social History Tobacco [...] Description 12/19/2023 9:45 AM CDT Office Visit [facility] Heart [facility] [address] [place] [phone] Trudi Grayson APRN CNP [address] [place] [address] Steven Canchola MD [address] [place] [id number] 12/27/[address] [facility] Care [address] [facility] [address] [place] [phone] Chris De Leon MD [address] [place] [id number] documented as of this encounter Procedures Procedure Name Priority Date/Time Associated Diagnosis Comments INTERROGATION DEVICE EVAL REMOTE ICD UP TO 90 Routine 03/05/2023 10:17 AM CDT Cardiac pacemaker in situ documented in this encounter Results * INTERROGATION DEVICE EVAL REMOTE ICD UP TO 90 (03/05/2023 10:17 AM CDT) Date Time Interrogation Session [id number] [employer] Implantable Pulse Generator Director Digital [place] [employer] [employer] Implantable Pulse Generator Model D432 RESONATE EL ICD MEDTRONIC Implantable Pulse Generator Serial Number [id number] MEDTRONIC Type Interrogation Session Remote MEDTRONIC Clinic Name [facility] [employer]IC Implantable Pulse Generator Type Defibrillator MEDTRONIC Implantable Pulse Generator Implant Date 20210704 MEDTRONIC Implantable Lead Director Digital [place] [employer] Implantable Lead Model 0272 Endotak [place] 4-Site S [employer]TRONIC Implantable Lead Serial Number [id number] MEDTRONIC Implantable Lead Implant Date 20210704 MEDTRONIC [...] Reformation MEDTRONIC Capacitor Last Charge Date Time [id number] [employer]IC Capacitor Charge Time 8.9 s MEDTRONIC Capacitor Charge Type Shock MEDTRONIC Capacitor Last Charge Date Time [id number] [employer]TR[employer]IC Capacitor Charge Time 6.8 s MEDTRONIC [...] Category Periodic EGM MEDTRONIC Episode Date Time [id number] [employer]ONIC Episode Identifier [id number] [employer]IC Episode Type Category Other MEDTRONIC Episode Date Time [id number] [employer] Anatomical Region Laterality Modality Other 03/05/2023 1:07 AM CDT Narrative 03/05/2023 2:10 PM CDT [employer] Resonate (S) ICD Remote Device Check ?? VMWARE CONSULTANT: 18 % ?? Mode: VVIR5 0-130 ?? Presenting Rhythm: VS/VMWARE CONSULTANT at 60s ?? Historical Underlying Rhythm: SB/SR 50-60s Heart Rate: 50-100 but primarily 50-60s ?? Sensing: WNL ?? Pacing Threshold: WNL ?? Impedance: WNL, shock impedance slowly trending up over past year ?? Battery Status: 13y ?? Atrial Arrhythmia: none ?? Ventricular Arrhythmia: none ?? ATP: 0 ?? Shocks: 0 ?? Tachy Therapy History: In process -[employer] Resonate (07/04/21-present) secondary prevention:\X0A09\-ATP: 34 -08/2021\X0A09\-Shock: [...] situ documented in this encounter Care Teams Barber Shop Operator Relationship Specialty Start Date End Date Graham Licona MD [facility] [address] [place] [address] PCP - General Family Medicine 06/30/21 Trudi Grayson APRN BORING MILL SET UP OPERATOR [address] [place] [address] Assigned Heart and Vascular Provider 10/07/22 documented as of this encounter
--- OUTSIDE RECORDS SUMMARY | 2023-10-21 01:25 | XMS_ITS | Encounter Summary ---
Author Name Unknown Organization [place] Address [address] [place] [address] Care Team Providers Care Rolled Ham Lacer Name Role Phone Graham Licona MD Primary Care Provider [phone] Trudi Grayson APRN IMMIGRATION CASE WORKER Unavailable [phone] Steven Canchola MD Unavailable + Reason for Visit * CV Testing (Routine) - Pending Review Specialty Diagnoses / Procedures Referred By Contac t Referred To Contact Diagnoses Sustained VT (ventricular tachycardia) (H) ICD (implantable cardioverter-defib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 Procedures Cardiac Device Check - Remote Chris De Leon MD [address] [place] [address] Referral ID Status Reason Start Date Expiration Date V isits Requested Visits Authorized [id number] Pending Review 06/11/2023 06/10/2024 250 250 Encounter Details Date Type Department Care Team (Latest Contact Info) Description 09/13/[address] [facility] Heart Care [address] [facility] [address] [place] [phone] Chris De Leon MD [address] [place] [id number] Sustained VT (ventricular tachycardia) (H); ICD (implantable [...] 12/19/2023 9:45 AM CDT Office Visit [facility] Heart [facility] [address] [place] [phone] Trudi Grayson APRN IMMIGRATION CASE WORKER [address] [place] [address] Steven Canchola MD [address] [place] [address] 12/27/[address] [facility] Heart Care [address] [facility] [address] [place] [phone] Chris De Leon MD [address] [place] [address] documented as of this encounter Procedures Procedure Name Priority Date/Time Associated Diagnosis Comments INTERROGATION DEVICE EVAL REMOTE ICD UP TO 90 Routine 09/13/2023 11:52 AM DIRECTOR OF FIRST IMPRESSIONS Sustained VT (ventricular tachycardia) (H) ICD (implantable cardioverter-defib 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 documented in this encounter Results * INTERROGATION DEVICE EVAL REMOTE ICD UP TO 90 (09/13/2023 11:52 AM DIRECTOR OF FIRST IMPRESSIONS) Date Time Interrogation Session [id number] [employer] Implantable Pulse Generator Environmental Technician [place] [employer] Implantable Pulse Generator Model D432 RESONATE EL ICD MEDTRONIC Implantable Pulse Generator Serial Number [id number] MEDTRONIC Type Interrogation Session Remote Scheduled MEDTRONIC Clinic Name [facility] [employer] Implantable Pulse Generator Type Defibrillator MEDTRONIC Implantable Pulse Generator Implant Date 20210704 MEDTRONIC Implantable Lead Environmental Technician [place] [employer] Implantable Lead Model 0272 Endotak [place] 4-Site S [employer]TRONIC Implantable Lead Serial Number [id number] MEDTRONIC Implantable Lead Implant Date 20210704 MEDTRONIC [...] Reformation MEDTRONIC Capacitor Last Charge Date Time [id number] [employer]TRONIC Capacitor Charge Time 8.9 s MEDTRONIC Capacitor Charge Type Shock MEDTRONIC Capacitor Last Charge Date Time [id number] MEDTRONIC Capacitor Charge Time 6.8 s MEDTRONIC [...] MEDTRONIC Episode Statistic Recent Date Time End [id number] MEDTRONIC Episode Statistic Recent Date Time Start MEDTRONIC Episode Statistic Recent Date Time End MEDTRONIC Episode Statistic Recent Date Time Start MEDTRONIC Episode Statistic Recent Date Time End MEDTRONIC Episode Identifier [id number] MEDTRONIC Episode Type Category Periodic EGM MEDTRONIC Episode Date Time [id number] MEDTRONIC Episode Identifier [id number] MEDTRONIC Episode Type Category Other MEDTRONIC Episode Date Time [id number] [employer]IC Anatomical Region Laterality Modality Other 09/13/2023 12:4 1 AM DIRECTOR OF FIRST IMPRESSIONS Narrative 09/25/2023 10:41 AM DIRECTOR OF FIRST IMPRESSIONS [employer] Resonate (S) ICD Remote Device Check DIRECTOR RELIGIOUS EDUCATION: 17 % ?? Mode: VVIR 50-130 ?? Presenting Rhythm: VS with occasional DIRECTOR RELIGIOUS EDUCATION ?? Historical Underlying Rhythm: AF 60-80's bpm (08/16/2022) Heart Rate: adequate variability ?? Sensing: WNL ?? Pacing Threshold: WNL ?? Impedance: WNL ?? Battery Status: 12.5 yrs estimated longevity, 8.9 second charge time ?? Atrial Arrhythmia: chronic AF, on eliquis ?? Ventricular Arrhythmia: none. On amiodarone for VT ?? ATP: 0 ?? Shocks: 0 ?? Other: Heart Logic 0 Tachy Therapy History: - [facility] implanted for secondary prevention ---- 12/2021: 14 VT episodes with ATP and shocks ---- Jul and Aug 2021: 4 episodes of VT with ATP - [facility] (4124-3412): sustained VT, prompted upgrade to ICD Care Plan: meets all criteria for q2yr thresholds, will be due 08/2024. Scheduled remote in 3 months. ??OV with Dr. Canchola on 12/19/2023. Sent results and plan via 1,2,3 Listo. EC RN I have reviewed and interpreted [...] place documented in this encounter Care Teams Rolled Ham Lacer Relationship Specialty Start Date End Date Graham Licona MD [facility] [address] [place] [address] PCP - General Family Medicine 06/30/21 Trudi Grayson APRN IMMIGRATION CASE WORKER [address] [place] [address] Assigned Heart and Vascular Provider 10/07/22 Steven Canchola MD [address] [place] [address] Cardiovascular Disease 07/12/23 documented as of this encounter
--- OUTSIDE RECORDS SUMMARY | 2023-10-21 01:25 | XMS_ITS ---
Author Name Unknown Organization [place] Address [facility] [place] [address] Care Team Providers Care Spike Maker Name Role Phone Graham Licona MD Primary Care Provider [phone] Trudi Grayson APRN AUTOMATIC SILK SCREEN PRINTER Unavailable [phone] Steven Canchola MD Unavailable + Active Problems [...] treatments are documented for this patient in [facility]. Treatments may have been administered in another system. Lifetime Dose Tracking * Chemical Lifetime Dose Automatic Entry Manual Entr y Air Kerma 64 mGy 0 mGy 64 mGy Margie DAP 8,803 mGy-cm2 0 mGy-cm2 8,803 mGy-cm2
[2023-10-21 01:26] LABS: Albumin* 4.4 g/dL (3.3-5.0); Potassium* 3.4 mmol/L (3.6-5.1); Sodium* 141 mmol/L (135-149)
--- OUTSIDE RECORDS SUMMARY | 2023-10-21 01:26 | XMS_ITS | Encounter Summary ---
Author Name Unknown Organization [place] Address [address] [place] [address] Care Team Providers Care Bottle Feeder Name Role Phone Graham Licona MD Primary Care Provider Trudi Grayson APRN THREAD WINDER Unavailable [phone] Reason for Visit * CV Testing (Routine) - Closed Specialty Diagnoses / Procedures Referred By Contnghia t Referred To Contact Diagnoses Cardiac pacemaker in situ Procedures Cardiac Device Check - Remote Timothy Smith MD [facility] [address] [place] [address] Referral ID Status Reason Start Date Expiration Date Visits Re quested Visits Authorized [id number] Closed 08/16/2022 08/16/2023 100 100 Encounter Details Date Type Department Care Team (Latest Contact Info) Description 11/27/2022 Ancillary Procedure [facility] Heart Care [address] [facility] [address] [place] [phone] Cardiac pacemaker in situ Social History Tobacco [...] AM CDT Office Visit [facility] [address] [facility] [address] [place] [phone] Trudi Grayson APRN CNP [address] [place] [address] Steven Canchola MD [address] [place] [id number] 12/27/2023 Ancillary Procedure [facility] Heart Care [address] [facility] [address] [place] [phone] Chris De Leon MD [address] [place] [id number] documented as of this encounter Procedures Procedure Name Priority Date/Time Associated Diagnosis Comments INTERROGATION DEVICE EVAL REMOTE ICD UP TO 90 Routine 11/27/2022 4:27 PM SALVAGE INSPECTOR Cardiac pacemaker in situ documented in this encounter Results * INTERROGATION DEVICE EVAL REMOTE ICD UP TO 90 (11/27/2022 4:27 PM SALVAGE INSPECTOR) Date Time Interrogation Session [id number] [employer] Implantable Pulse Generator Rating Clerk [employer]ONIC Implantable Pulse Generator Model D432 RESONATE EL ICD MEDTRONIC Implantable Pulse Generator Serial Number [id number] MEDTRONIC Type Interrogation Session Remote MEDTRONIC Clinic Name [facility] [employer]IC Implantable Pulse Generator Type Defibrillator MEDTRONIC Implantable Pulse Generator Implant Date 20210704 MEDTRONIC Implantable Lead Rating Clerk [employer]IC Implantable Lead Model 0272 [place] 4-Site S MEDTRONIC Implantable Lead Serial Number [id number] MEDTRONIC Implantable Lead Implant Date 20210704 MEDTRONIC [...] ms MEDTRONIC Battery Date Time of Measurements [id number] MEDTRONIC Battery Status Beginning of Service MEDTRONIC Battery Remaining Longevity 162 mo MEDTRONIC Battery Remaining Percentage 100 % MEDTRONIC Capacitor Charge Type Reformation MEDTRONIC Capacitor Last Charge Date Time [id number] MEDTRONIC Capacitor Charge Time 8.8 s MEDTRONIC [...] MEDTRONIC Episode Statistic Recent Date Time Start [id number] MEDTRONIC Episode Statistic Recent Date Time End [id number] MEDTRONIC Episode Statistic Recent Date Time Start MEDTRONIC Episode Statistic Recent Date Time End MEDTRONIC Episode Statistic Recent Date Time Start MEDTRONIC Episode Statistic Recent Date Time End MEDTRONIC Episode Identifier [id number] MEDTRONIC Episode Type Category Periodic EGM MEDTRONIC Episode Date Time [id number] [employer]IC Anatomical Region Laterality Modality Other 11/27/2022 3:13 PM SALVAGE INSPECTOR Narrative 12/01/2022 2:00 PM SALVAGE INSPECTOR [employer] Resonate (S) ICD Remote Device Check GRINDER OUTSIDE DIAMETER: 17% Mode: VVIR 50-130 Underlying Rhythm: VS [...] situ documented in this encounter Care Teams Bottle Feeder Relationship Specialty Start Date End Date Graham Licona MD [facility] [address] [place] [address] PCP - General Family Medicine 06/30/21 Trudi Grayson APRN THREAD WINDER [address] [place] [address] [address] Assigned Heart and Vascular Provider 10/07/22 documented as of this encounter
--- OUTSIDE RECORDS SUMMARY | 2023-10-21 01:26 | XMS_ITS | Encounter Summary ---
Author Name Unknown Organization [place] Address [facility] [place] [address] Care Team Providers Care Rigging Foreman Name Role Phone Herminia Coleman MD Primary Care Provider Ellie jamesilaGraham Calvo MD Primary Care Provider [phone] [facility] Primary Care Provider + Slava Hernandez PA-C Primary Care Provider [phone] Timothy Smith MD Unavailable Unavailable Graham Licona MD Primary Care Provider [phone] Tammy Montenegro PA-C Unavailable [phone] Trudi Grayson APRN ACADEMIC INTERVENTIONIST Unavailable [phone] Steven Canchola MD Unavailable + Encounter Details Date Type Department Care Team (Late st Contact Info) Description 03/18/2013 Office Visit-[facility] [address] [place] [phone] Michelle Huff PA-C Social History Tobacco Use [...] CDT Progress Note Created by: HANK Arellano [id number] DATE: 03/18/2013 RADHA FAROOQ DATE OF : 1940 AGE: [age] years old Referring Physician: HERMINIA COLEMAN Referring Clinic: [facility] CURRENT DIAGNOSES 1. - Hyperlipidemia, 272.4 2. - Hypertension, 401.1 3. OR-Recent Unspecified, 410.91 4. - CAD, 414.00 5. [...] past at another institution. He presented to [facility] last year withchest discomfort and was found to be in atrial flutter. Due to troponin elevation he underwent coronary angiography and was found to have no significant stenosis. No intervention was performed. Subsequently he went to [facility] and underwent a direct current [...] Weight- 318.00 lbs. Height- 71 BMI Measurement: [email or web address] Error: [Microsoft][ODBC SQL Biodiesel Product Manager Public Service Officer][SQL Biodiesel Product Manager]Divide by zero error encountered. - 51185 CONSTITUTIONAL cooperative, alert and oriented,well developed, well [...] in 1985 with a four-vessel bypass at [facility]. Subsequent angiography in Jan, 2012, did not [...] Description 12/19/2023 9:45 AM CDT Office Visit [facility] [address] [place] [phone] Trudi Grayson APRN ACADEMIC INTERVENTIONIST [address] [place] [address] Steven Canchola MD [address] [place] [address] 12/27/2023 Ancillary Procedure [facility] Heart Care [address] [facility] [address] [place] [phone] Chris De Leon MD [address] [place] [id number] documented as of this encounter Visit Diagnoses Not on filedocumented in this encounter Care Teams Rigging Foreman Relationship Specialty Start Date End Date Herminia Coleman MD PCP - General Family Practice 02/01/12 04/12/17 Graham Licona MD [facility] [address] [place] [address] PCP - General Family Practice 04/13/17 01/15/18 [facility] [address] [place] [phone] PCP - General 01/16/18 07/01/18 Slava Hernandez PA-C [facility] [address] [place] [address] PCP - General Physician Proprietary Trader 07/02/18 06/29/21 Graham Licona MD [facility] [address] [place] [address] PCP - General Family Medicine 06/30/21 Timothy Smith MD Assigned Heart and Vascular Provider 07/23/20 09/08/22 Tammy Montenegro PA-C [address] [place] [id number] Assigned Heart and Vascular Provider 09/09/22 10/06/22 Trudi Grayson APRN ACADEMIC INTERVENTIONIST [address] [address] Assigned Heart and Vascular Provider 10/07/22 Steven Canchola MD [address] [place] [id number] Cardiovascular Disease 07/12/23 documented as of this encounter
--- OUTSIDE RECORDS SUMMARY | 2023-10-21 01:26 | XMS_ITS | Encounter Summary ---
Author Name Unknown Organization [place] Address [address] [place] [address] Care Team Providers Care Termite Exterminator Helper Name Role Phone Graham Licona MD Primary Care Provider [phone] Trudi Grayson APRN TRAINING ANALYST Unavailable [phone] Encounter Details Date Type Department Care Team [...] Coronavirus/COVID-19? No / Unsure 10/26/2022 9:17 AM CONSTRUCTION OPERATIONS MANAGER documented as of this encounter Plan of Treatment Upcoming Encounters Date Type Department Care Team (Late st Contact Info) Description 12/19/2023 9:45 AM CDT Office Visit [facility] [address] [place] [phone] Trudi Grayson APRN TRAINING ANALYST [address] [address] Steven Canchola MD [address] [place] [address] 12/27/2023 Ancillary Procedure [facility] Heart Care [address] [facility] [address] [place] [phone] Chris De Leon MD [address] [place] [address] documented as of this encounter Visit Diagnoses Not on filedocumented in this encounter Care Teams Termite Exterminator Helper Relationship Specialty Start Date End Date Graham Licona MD [facility] [address] [place] [address] PCP - General Family Medicine 06/30/21 Trudi Grayson APRN TRAINING ANALYST [address] [place] [address] Assigned Heart and Vascular Provider 10/07/22 documented as of this encounter
--- OUTSIDE RECORDS SUMMARY | 2023-10-21 01:26 | XMS_ITS | Encounter Summary ---
Author Name Unknown Organization [place] Address [address] [place] [address] Care Team Providers Care Top Bottom Attaching Machine Operator Name Role Phone Graham Licona MD Primary Care Provider [phone] Trudi Grayson APRN FISH SEINER Unavailable [phone] Reason for Visit * Reason Onset Date Comments Refill Request 12/04/2022 amiodarone Encounter Details Date Type Department Care Team (Late st Contact Info) Description 12/04/2022 Refill [facility] Heart [facility] [address] [place] [address] [address] [place] [address] Trudi Grayson APRN FISH SEINER [address] [facility] [place], [place] [address] Refill Request (amiodarone) Social History Tobacco Use [...] Cristopher Durán RN - 12/04/2022 8:40 AM CREDIT CARD ASSOCIATE [facility] Cardiology Refill Guideline reviewed. Medication meets criteria for refill. IT CARD ASSOCIATE documented in this encounter Plan of Treatment Upcoming Encounters Date Type Department Care Team (Late st Contact Info) Description 12/19/2023 9:45 AM CDT Office Visit [facility] [place] [address] [place] [phone] Trudi Grayson APRN FISH SEINER [address] [place] [address] Steven Canchola MD [address] [place] [phone] 12/27/2023 Ancillary Procedure Heart Care [address] [facility] [address] [place] [phone] Chris De Leon MD [address] [place] [phone] documented as of this encounter Visit Diagnoses Diagnosis Sustained VT (ventricular tachycardia) (H) Paroxysmal ventricular tachycardia documented in this encounter Care Teams Top Bottom Attaching Machine Operator Relationship Specialty Start Date End Date Graham Licona MD [facility] [address] [place] [address] PCP - General Family Medicine 06/30/21 Trudi Grayson APRN FISH SEINER [address] [place] [id number] Assigned Heart and Vascular Provider 10/07/22 documented as of this encounter
--- OUTSIDE RECORDS SUMMARY | 2023-10-21 01:26 | XMS_ITS | Clinical Summary ---
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
--- OUTSIDE RECORDS SUMMARY | 2023-10-21 01:26 | XMS_ITS | Encounter Summary ---
Author Name Unknown Organization [place] Address [address] [facility] [place] [address] Care Team Providers Care Medical Photographer Name Role Phone Graham Licona MD Primary Care Provider [phone] Trudi Grayson APRN PLASTICS PROCESS HAND Unavailable [phone] Reason for Visit * Reason Onset Date Comments Patient Request 11/27/2022 Remote device ch suma Encounter Details Date Type Department Care Team (Late st Contact Info) Description 11/27/2022 Telephone [facility] Heart [facility] [address] [facility] [address] [place] [address] Trudi Grayson APRN PLASTICS PROCESS HAND [address] [place], [place] [id number] Patient Request (Remote device check ) Social [...] will watch for the transmission. Holden, RN ESS TRACK VEHICLE SUPERVISOR * Telephone Encounter - Michelle Noe - 11/27/2022 8:35 AM CST [facility] Call Center Phone Message May [...] Not Applicable Thank you! [facility] ESS TRACK VEHICLE SUPERVISOR documented in this encounter Plan of Treatment Upcoming Encounters Date Type Department Care Team (Late st Contact Info) Description 12/19/2023 9:45 AM CDT Office Visit [facility] [place] [address] [facility] [address] [place] [phone] Trudi Grayson APRN PLASTICS PROCESS HAND [address] [place] [address] Steven Canchola MD [address] [place] [address] 12/27/[address] [facility] Heart Care [address] [facility] [address] [place] [phone] Chris De Leon MD [address] [place] [id number] documented as of this encounter Visit Diagnoses Not on filedocumented in this encounter Care Teams Medical Photographer Relationship Specialty Start Date End Date Graham Licona MD [facility] [address] [place] [address] PCP - General Family Medicine 06/30/21 Trudi Grayson APRN PLASTICS PROCESS HAND [address] [place] [address] Assigned Heart and Vascular Provider 10/07/22 documented as of this encounter
--- OUTSIDE RECORDS SUMMARY | 2023-10-21 01:26 | XMS_ITS | Encounter Summary ---
Author Name Unknown Organization [place] Address [facility] [place] [address] Care Team Providers Care Vault Attendant Name Role Phone Graham Licona MD Primary Care Provider [phone] Trudi Grayson APRN WIRELESS NETWORK ENGINEER Unavailable Encounter Details Date Type Department Care Team (Late st Contact Info) Description 10/26/2022 9:30 AM TECHNICAL SALES SUPPORT SPECIALIST Lab [address] [place] [address] Paroxysmal ventricular tachycardia (H); Hypothyroidism [...] Coronavirus/COVID-19? No / Unsure 10/26/2022 9:17 AM TECHNICAL SALES SUPPORT SPECIALIST documented as of this encounter Plan of Treatment Upcoming Encounters Date Type Department Care Team (Late st Contact Info) Description 12/19/2023 9:45 AM CDT Office Visit [place] [address] [facility] [address] [place] [address] Trudi Grayson, FLACO WIRELESS NETWORK ENGINEER [address] [id number] Steven Canchola MD [address] [place] [id number] 12/27/2023 Ancillary Procedure [facility] Heart Care [address] [place] [phone] Chris De Leon MD [address] [place] [id number] documented as of this encounter Procedures Procedure Name Priority Date/Time Associated Diagnosis Comments TSH WITH FREE T4 REFLEX Routine 10/26/2022 9:19 AM TECHNICAL SALES SUPPORT SPECIALIST Paroxysmal ventricular tachycardia (H) Hypothyroidism due to medication T4 FREE Routine 10/26/2022 9:19 AM TECHNICAL SALES SUPPORT SPECIALIST Paroxysmal ventricular tachycardia (H) Hypothyroidism due to medication documented in this encounter Results * (ABNORMAL) T4 free (10/26/2022 9:19 AM TECHNICAL SALES SUPPORT SPECIALIST) Free T4 0.83(L) 0.90 - 1.70 ng/dL 10/26/2022 10:43 AM TECHNICAL SALES SUPPORT SPECIALIST [facility] Blood STRUCTURE OF RIGHT UPPER LIMB / Unknown Venipuncture / Unknown 10/26/2022 9:19 AM TECHNICAL SALES SUPPORT SPECIALIST 10/26/2022 9:22 AM TECHNICAL SALES SUPPORT SPECIALIST Trudi Grayson APRN WIRELESS NETWORK ENGINEER LAB - BLOOD ORD ERABLES LABORATORY [facility] Acute Care Lab [address] Lab (1st floor, no room number) [place] [address], [facility] [phone] * (ABNORMAL) TSH with free T4 reflex (10/26/2022 9:19 AM TECHNICAL SALES SUPPORT SPECIALIST) TSH 22.48(H) 0.30 - 4.20 uIU/mL 10/26/2022 10:19 AM TECHNICAL SALES SUPPORT SPECIALIST [facility] Blood STRUCTURE OF RIGHT UPPER LIMB / Unknown Venipuncture / Unknown 10/26/2022 9:19 AM TECHNICAL SALES SUPPORT SPECIALIST 10/26/2022 9:22 AM TECHNICAL SALES SUPPORT SPECIALIST Trudi Grayson APRN, CNP LAB - BLOOD ORD ERABLES [facility] Acute Care Lab [address] Lab (1st floor, no room number) [place] [address], [facility] [phone] documented in this encounter Visit Diagnoses Diagnosis Paroxysmal ventricular tachycardia (H) Paroxysmal ventricular tachycardia Hypothyroidism due to medication documented in this encounter Care Teams Vault Attendant Relationship Specialty Start Date End Date Graham Licona MD [facility] [address] [place] [address] PCP - General Family Medicine 06/30/21 Trudi Grayson APRN WIRELESS NETWORK ENGINEER [address] [address] Assigned Heart and Vascular Provider 10/07/22 documented as of this encounter
--- OUTSIDE RECORDS SUMMARY | 2023-10-21 01:26 | XMS_ITS | Encounter Summary ---
Author Name Unknown Organization [place] Address [facility] [place] [address] Care Team Providers Care Motel Operator Name Role Phone Herminia Coleman MD Primary Care Provider Ellie jamesilaGraham Calvo MD Primary Care Provider [phone] [facility] Primary Care Provider + Slava Hernandez PA-C Primary Care Provider [phone] Timothy Smith MD Unavailable Unavailable Graham Licona MD Primary Care Provider [phone] Tammy Montenegro PA-C Unavailable [phone] Trudi Grayson APRN HEALTH INSURANCE ASSESSOR Unavailable [phone] Steven Canchola MD Unavailable + Encounter Details Date Type Department Care Team (Late st Contact Info) Description 09/12/2013 Office Visit-[facility] [place] [address] [facility] [address] [place] [address] Tammy Montenegro PA-C [address] [facility] [address] [place], [place] [address] Social History Tobacco Use Types Packs/Day Years [...] Physician: HERMINIA COLEMAN Referring Clinic: [facility] CURRENT DIAGNOSES 1. - Hyperlipidemia, 272.4 2. - Hypertension, 401.1 3. [place]-Recent Unspecified, 410.91 4. - CAD, 414.00 5. [...] 2013. He saw Dr. Smith, his primary stock house worker, in May, at which time he [...] walking in a big store, such as [employer]. He does workout at [employer] three times weekly and states he has [...] Occupation - retired; Residence - lives in [place] year round; REVIEW OF SYSTEMS GENERAL See [...] tablet, 1 p.o. twice daily, #180 (One Gage Eighty) MEDICATIONS STOPPED TODAY: losartan 25 mg [...] AM CDT Office Visit [facility] Heart [facility] [address] [facility] [address] [place] [address] Trudi Grayson APRN HEALTH INSURANCE ASSESSOR [address] [address] Steven Canchola MD [address] [place] [id number] 12/27/2023 Ancillary Procedure [facility] Heart Care [address] [facility] [address] [place] [phone] Chris De Leon MD [address] [place] [address] documented as of this encounter Visit Diagnoses Not on filedocumented in this encounter Care Teams Motel Operator Relationship Specialty Start Date End Date Herminia Coleman MD PCP - General Family Practice 02/01/12 04/12/17 Graham Licona MD [facility] [address] [place] [address] PCP - General Family Practice 04/13/17 01/15/[address] [address] PCP - General 01/16/18 07/01/18 Slava Hernandez PA-C [address] [address] PCP - General Physician Brush Finisher 07/02/18 06/29/21 Graham Licona MD [facility] [address] [place] [address] PCP - General Family Medicine 06/30/21 Timothy Smith MD Assigned Heart and Vascular Provider 07/23/20 09/08/22 Tammy Montenegro PA-C [address] [place] [address] Assigned Heart and Vascular Provider 09/09/22 10/06/22 Trudi Grayson APRN [facility] [address] [address] Assigned Heart and Vascular Provider 10/07/22 Steven Canchola MD [address] [place] [id number] Cardiovascular Disease 07/12/23 documented as of this encounter
--- OUTSIDE RECORDS SUMMARY | 2023-10-21 01:26 | XMS_ITS | Encounter Summary ---
Author Name Unknown Organization [place] Address [address] [facility] [place] [address] Care Team Providers Care Advertising Assistant Name Role Phone Graham Licona MD Primary Care Provider [phone] Trudi Grayson APRN PRODUCTION STAGE MANAGER Unavailable [phone] Reason for Visit * Reason Onset Date Comments Orders 12/26/2022 Needs lab order for A1C Encounter Details Date Type Department Care Team (Late st Contact Info) Description 12/26/2022 Telephone [facility] Heart [facility] [address] [facility] [address] [place] [phone] Trudi Grayson APRN PRODUCTION STAGE MANAGER [address] [facility] [place] [id number] Orders (Needs lab order for A1C) Social [...] GerrySue boyd - 12/26/2022 1:28 PM CDT [facility] Call Center Phone Message May [...] Description 12/19/2023 9:45 AM CDT Office Visit [facility] Heart [address] [place] [address] Trudi Grayson APRN PRODUCTION STAGE MANAGER [address] [place] [address] Steven Canchola MD [address] [facility] [address] [place] [address] 12/27/2023 Ancillary Procedure [facility] Heart Care [address] [facility] [address] [place] [address] Chris De Leon MD [address] [place] [address] documented as of this encounter Visit Diagnoses Not on filedocumented in this encounter Care Teams Advertising Assistant Relationship Specialty Start Date End Date Graham Licona MD [facility] [address] [place] [address] PCP - General Family Medicine 06/30/21 Trudi Grayson APRN [facility] [address] [address] Assigned Heart and Vascular Provider 10/07/22 documented as of this encounter
--- OUTSIDE RECORDS SUMMARY | 2023-10-21 01:26 | XMS_ITS | Encounter Summary ---
Author Name Unknown Organization [place] Address [address] [facility] [place] [address] Care Team Providers Care Building Construction Inspector Name Role Phone Herminia Coleman MD Primary Care Provider Ellie jamesilable Graham Licona MD Primary Care Provider [phone] [facility] Primary Care Provider + Slava Hernandez PA-C Primary Care Provider [phone] Timothy Smith MD Unavailable Unavailable Graham Licona MD Primary Care Provider [phone] Tammy Montenegro PA-C Unavailable [phone] Trudi Grayson APRN SALVAGE SUPERVISOR Unavailable [phone] Steven Canchola MD Unavailable + Encounter Details Date Type Department Care Team (Late st Contact Info) Description 02/10/2013 Office Visit-[facility] Heart [address] [place] [phone] Timothy Smith MD Social History Tobacco Use [...] Referring Physician: HERMINIA COLEMAN Referring Clinic: [facility] CURRENT DIAGNOSES 1. - Hyperlipidemia, 272.4 2. - Hypertension, 401.1 3. [place]-Recent Unspecified, 410.91 4. - CAD, 414.00 5. [...] in another institution. The patient presented to [facility] last year with chestpain. He was found to be in atrial flutter. Because of troponin elevation the attention was focusedon acute coronary syndrome. He underwent coronary angiography and was found to have no significant stenosis. Therefore, he did not undergo any intervention. The patient was treated medically and was discharged from the hospital with no Cardiology followup plan. Subsequently he went to [facility] and underwent a DC cardioversion. Apparently, sometime [...] 12/19/2023 9:45 AM CDT Office Visit [facility] Heart [facility] [address] [facility] [address] [place] [address] Trudi Grayson APRN SALVAGE SUPERVISOR [address] [place] [id number] Steven Canchola MD [address] [place] [address] 12/27/2023 Ancillary Procedure [facility] [address] [facility] [address] [place] [phone] Chris De Leon MD [address] [place] [id number] documented as of this encounter Visit Diagnoses Not on filedocumented in this encounter Care Teams Building Construction Inspector Relationship Specialty Start Date End Date Herminia Coleman MD PCP - General Family Practice 02/01/12 04/12/17 Graham Licona MD [facility] [address] [place] [address] PCP - General Family Practice 04/13/17 01/15/18 [facility] [address] [place] [address] PCP - General 01/16/18 07/01/18 Slava Hernandez PA-C [facility] [address] [place] [address] PCP - General Physician Room Server 07/02/18 06/29/21 Graham Licona MD [facility] [address] [place] [address] PCP - General Family Medicine 06/30/21 Timothy Smith MD Assigned Heart and Vascular Provider 07/23/20 09/08/22 Tammy Montenegro PA-C [address] [place] [id number] Assigned Heart and Vascular Provider 09/09/22 10/06/22 Trudi Grayson APRN SALVAGE SUPERVISOR [address] [place] [id number] Assigned Heart and Vascular Provider 10/07/22 Steven Canchola MD [address] [place] [id number] Cardiovascular Disease 07/12/23 documented as of this encounter
--- OUTSIDE RECORDS SUMMARY | 2023-10-21 01:26 | XMS_ITS | Encounter Summary ---
Author Name Unknown Organization [facility] Address [address] [place] [address] Care Team Providers Care Operations Leader Name Role Phone Herminia Coleman MD Primary Care Provider Ellie jamesilable Graham Licona MD Primary Care Provider [phone] [facility] Primary Care Provider + Slava Hernandez PA-C Primary Care Provider Timothy Smith MD Unavailable Unavailable Graham Licona MD Primary Care Provider [phone] Tammy Montenegro PA-C Unavailable [phone] Trudi Grayson APRN CREDENTIALS SPECIALIST Unavailable [phone] Steven Canchola MD Unavailable + Encounter Details Date Type Department Care Team (Late st Contact Info) Description 05/23/2013 Office Visit-[facility] Heart [address] [place] [phone] Timothy Smith MD Social History Tobacco Use [...] Physician: HERMINIA COLEMAN Referring Clinic: [facility] CURRENT DIAGNOSES 1. - Hyperlipidemia, 272.4 2. - Hypertension, 401.1 3. [place]-Recent Unspecified, 410.91 4. - CAD, 414.00 5. [...] hr, 1 p.o. twice daily, #180 (One Mineral Eighty) MEDICATIONS REFILLED/STOPPED TODAY: metoprolol succinate 50 [...] Description 12/19/2023 9:45 AM CDT Office Visit [facility] Heart [facility] [address] [facility] [address] [place] [phone] Trudi Grayson APRN CREDENTIALS SPECIALIST [address] [place] [address] Steven Canchola MD [address] [place] [id number] 12/27/2023 Ancillary Procedure [facility] Heart Care [address] [facility] [address] [place] [phone] Chris De Leon MD [address] [place] [address] documented as of this encounter Visit Diagnoses Not on filedocumented in this encounter Care Teams Operations Leader Relationship Specialty Start Date End Date Herminia Coleman MD PCP - General Family Practice 02/01/12 04/12/17 Graham Licona MD [facility] [address] [place] [address] PCP - General Family Practice 04/13/17 01/15/18 [facility] [address] [place] [phone] PCP - General 01/16/18 07/01/18 Slava Hernandez PA-C [facility] [address] [address] PCP - General Physician Wire Preparation Worker 07/02/18 06/29/21 Graham Licona MD [facility] [address] [place] [address] PCP - General Family Medicine 06/30/21 Timothy Smith MD Assigned Heart and Vascular Provider 07/23/20 09/08/22 Tammy Montenegro PA-C [address] [place] [address] Assigned Heart and Vascular Provider 09/09/22 10/06/22 Trudi Grayson APRN CNP [address] [place] [address] Assigned Heart and Vascular Provider 10/07/22 Steven Canchola MD [address] [place] [address] Cardiovascular Disease 07/12/23 documented as of this encounter
[2023-10-21 01:28] LABS: Appearance Urine Clear (Clear); Bilirubin Urine Negative (Negative); Blood Urine Negative (Negative); Color Urine Yellow (Yellow); Glucose Urine Negative (Negative); Ketones Urine Negative (Negative); Leukocyte Esterase Urine Negative (Negative); Nitrite Urine Negative (Negative); Protein Urine Negative (Negative); Specific Gravity Urine 1.015 (1.000-1.030); Urobilinogen Urine 0.2 (0.2-1.0)
[2023-10-21 01:28] LABS: Slide Review Reflex No
[2023-10-21] MEDS: 0.9 % SODIUM CHLORIDE 1000 ml 1,000 ML IV (01:28)
[2023-10-21 01:29] LABS: RBC Urine 0-2 (0-2); Squamous Epithelial Cell Urine Few (None-Few); WBC Urine 0-2 (0-5)
[2023-10-21 01:29] LABS: Alkaline Phosphatase* 51 U/L (40-150); Anion Gap 13 mEq/L (7-15); Aspartate Amino Transferase* 33 U/L (12-35); Bilirubin Direct* 0.6 mg/dL (0.0-0.5); Bilirubin Total* 1.3 mg/dL (0.1-1.5); Blood Urea Nitrogen* 58 mg/dL (7-30); Carbon Dioxide* 28 mmol/L (20-32); Creatinine* 2.3 mg/dL (0.5-1.5); Est. Creatinine Clearance* 25.01; Estimated Glomerular Filt Rate 27 ml/min; Total Protein* 7.8 g/dL (6.0-8.3)
[2023-10-21 01:30] LABS: Alanine Aminotransferase* 17 U/L (4-50); Calcium* 9.5 mg/dL (8.4-10.6); Glucose* 142 mg/dL (60-115)
[2023-10-21 01:32] LABS: C Reactive Protein* 4.6 mg/dL (0.5-1.0)
[2023-10-21] MEDS: cefTRIAXone 1 GM in 0.9 % SODIUM CHLORIDE Mini-bag 100 ML IVPB (03:11)
--- NOTE | 2023-10-21 03:59 | ED.NURSE ---
Rn to Rn report given. Pt taken to rm 247
--- NOTE | 2023-10-21 05:10 | W.PM.THH&P_ITS ---
Telehealth- H&P: HPI History of Present Illness Date Seen: 10/21/23 Chief complaint: Weakness Narrative: Haris Villa is seen as an Interactive Telehealth visit. Haris Villa is a 83 year old male who presented to the emergency room with increasing weakness and redness in his left lower extremity wound. Haris has a past medical history of diabetes with diabetic neuropathy and diabetic nephropathy, coronary artery disease, hypertension, hyperlipidemia, atrial fibrillation anticoagulated on Eliquis, BPH, chronic anemia, hypothyroidism on thyroid supplementation and history of ICD placement. Haris has a significant recent history of suffering a fall on 10/08 of this year when he was walking on a porch and subsequently slipped and fell in the snow. He unfortunately suffered a laceration of his left lower extremity and was seen in the emergency room at that time. The laceration was sutured and he was sent to the wound clinic for follow-up as he does have chronic right lower extremity wounds that have been seen in the wound clinic previously. Unfortunately, he started noticing some drainage from the left lower extremity wound as well as symptoms of being chilled and decreased appetite. He also noticed some increasing erythema and swelling around the wound site and he presented to the emergency room with the symptoms along with worsening weakness and inability to do his ADLs. In the emergency room he was evaluated and found to have an infected wound with surrounding cellulitis. He was given 1 g of IV Rocephin and is currently being admitted to the medical service for ongoing evaluation and treatment. At the time I am seeing Haris, he does confirm the above history. He states that with his weakness he did fall out of bed earlier this morning and was unable to get up and that is why he presented to the emergency room. He otherwise denies any other acute complaints or problems at the time I am seeing him. Review of Systems Status of ROS: Reports: 10 or more systems reviewed and unremarkable except as noted in History and below Const: Reports: chills; Denies: fever Cardio: Reports: swelling of feet/ankles; Denies: chest pain or shortness of breath with exertion Resp: Denies: shortness of breath GI: Denies: abdominal pain PFSH PFSH Medical History Cellulitis of lower extremity ?L03.119 - Cellulitis of unspecified part of limb (ICD-10) Canales's esophagus with dysplasia, unspecified ?K22.719 - Canales's esophagus with dysplasia, unspecified (ICD-10) Prostate mass ?N42.89 - Other specified disorders of prostate (ICD-10) Melanoma of eye ?C69.90 - Malignant neoplasm of unspecified site of unspecified eye (ICD-10) Venous stasis ulcer ?I83.009 - Varicose veins of unspecified lower extremity with ulcer of unspecified site (ICD-10) ?L97.909 - Non-pressure chronic ulcer of unspecified part of unspecified lower leg with unspecified severity (ICD-10) History of ventricular tachycardia ?Z86.79 - Personal history of other diseases of the circulatory system (ICD- 10) Health care directive on file (11/29/21) ?Z78.9 - Other specified health status (ICD-10) Surgical History History of hip surgery (11/10/21) ?Z98.890 - Other specified postprocedural states (ICD-10) Status post implantation of automatic cardioverter/defibrillator (AICD) ?Z95.810 - Presence of automatic (implantable) cardiac defibrillator (ICD-10) 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) ?Z96.641 - Presence of right artificial hip joint (ICD-10) 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) ?Z95.1 - Presence of aortocoronary bypass graft (ICD-10) Status post eye surgery (04/09/12) ?Z98.890 - Other specified postprocedural states (ICD-10) History of right inguinal hernia repair (04/09/12) ?Z98.890 - Other specified postprocedural states (ICD-10) ?Z87.19 - Personal history of other diseases of the digestive system (ICD-10) Social History Smoking Status: Never smoker Little interest or pleasure in doing things: not at all Feeling down, depressed, or hopeless: not at all Meds Home Medications and Allergies Home Medications Medication Instructions Recorded Confirmed Type acetaminophen 500 mg tablet 1,000 mg PO TID PRN 04/11/22 10/12/23 History amiodarone 200 mg tablet 200 mg PO DAILY 04/11/22 10/12/23 History furosemide 40 mg tablet 40 mg PO DAILY 04/11/22 10/12/23 History loratadine 10 mg tablet (Allergy 10 mg PO QDAY PRN 04/11/22 10/12/23 History Relief (loratadine)) nitroglycerin 0.4 mg sublingual 0.4 mg sublingual ONCE PRN 04/11/22 10/12/23 History tablet apixaban 2.5 mg tablet (Eliquis) 1.25 mg PO BID 10/12/23 10/12/23 History insulin glargine 100 unit/mL (3 14 unit subcut QDAY 10/12/23 History mL) subcutaneous pen (Lantus Solostar U-100 Insulin) metoprolol succinate 50 mg 50 mg PO DAILY 10/12/23 10/12/23 History tablet,extended release 24 hr Allergies Allergy/AdvReac Type Severity Reaction Status Date / Time adhesive Allergy Unknown Rash Verified 10/12/23 08:33 rosuvastatin Allergy Unknown muscle Verified 10/12/23 08:33 soreness/weakness Exam Narrative Exam Narrative: Physical Exam GENERAL: vital signs reviewed, well developed and nourished, in no distress HEENT: pupils are equal round and reactive to light, extraocular movements are grossly within normal limits and oral mucosa is dry. NECK: Supple without lymphadenopathy or thyromegaly according to nursing staff examination observation HEART: Regular rate and rhythm without any rubs, murmurs or gallops. LUNGS: Clear to auscultation bilaterally with good air movement throughout ABDOMEN: Observation from nurse assisted exam, abdomen appears soft, nontender, with minimal distention and Positive bowel sounds noted. EXTREMITIES: Strength and sensation is observed to decreased but symmetric bilaterally in the upper and lower extremities. No focal strength deficit is observed. He does have noted right lower extremity chronic wounds on the anterior corbett and also on the medial posterior aspect of his corbett. His left lower extremity has a noted laceration that has been sutured with surrounding erythema as well as left knee abrasions. SKIN: Observed warm and dry with color normal NEURO: Alert, awake and oriented ?3. Answers all questions appropriately. No focal neuro deficits are noted. PSYCH: Affect normal Const Vital Signs, click to edit/add: Vital Signs - 24 hr 10/21/23 00:03 10/21/23 00:03 10/21/23 00:15 Temperature 97.9 F Pulse Rate 76 62 Pulse Rate [Pulse Oximeter] 66 Respiratory Rate 26 H Blood Pressure Blood Pressure [Right Upper Arm] 113/55 L Pulse Oximetry 96 93 99 Oxygen Delivery Method Nasal Cannula Oxygen Flow Rate 2 10/21/23 00:30 10/21/23 00:35 10/21/23 00:36 Temperature Pulse Rate 65 65 Pulse Rate [Pulse Oximeter] Respiratory Rate Blood Pressure 111/59 L Blood Pressure [Right Upper Arm] Pulse Oximetry 83 L 97 100 Oxygen Delivery Method Oxygen Flow Rate 10/21/23 00:41 10/21/23 00:42 10/21/23 00:45 Temperature Pulse Rate 67 66 Pulse Rate [Pulse Oximeter] Respiratory Rate Blood Pressure 107/61 Blood Pressure [Right Upper Arm] Pulse Oximetry 96 100 96 Oxygen Delivery Method Nasal Cannula Oxygen Flow Rate 2 10/21/23 01:00 10/21/23 01:02 10/21/23 01:02 Temperature Pulse Rate 62 64 64 Pulse Rate [Pulse Oximeter] Respiratory Rate Blood Pressure 112/53 L 112/53 L Blood Pressure [Right Upper Arm] Pulse Oximetry 96 88 88 Oxygen Delivery Method Oxygen Flow Rate 10/21/23 01:15 10/21/23 01:22 10/21/23 01:30 Temperature Pulse Rate 68 62 67 Pulse Rate [Pulse Oximeter] Respiratory Rate Blood Pressure 110/44 L Blood Pressure [Right Upper Arm] Pulse Oximetry 95 95 95 Oxygen Delivery Method Oxygen Flow Rate 10/21/23 01:42 10/21/23 01:45 Temperature Pulse Rate 68 68 Pulse Rate [Pulse Oximeter] Respiratory Rate Blood Pressure 115/51 L Blood Pressure [Right Upper Arm] Pulse Oximetry 100 94 Oxygen Delivery Method Oxygen Flow Rate Documenting provider has reviewed patient's vital signs: yes Hospitalist - H&P: Result Labs Labs: Short CBC 10/21/23 Range/Units 00:20 WBC 16.27 H (4.50-11.00) K/uL Hgb 11.4 L (13.5-17.5) gm/dL Hct 36.4 L (37.0-53.0) % Plt Count 280 (140-440) K/uL BMP 10/21/23 00:20 Sodium 141 Potassium 3.4 L Chloride 100 Carbon Dioxide 28 BUN 58 H Creatinine 2.3 H Glucose 142 H Calcium 9.5 Liver Function 10/21/23 Range/Units 00:20 Total Bilirubin 1.3 (0.1-1.5) mg/dL Direct Bilirubin 0.6 H (0.0-0.5) mg/dL AST 33 (12-35) U/L ALT 17 (4-50) U/L Alkaline Phosphatase 51 (40-150) U/L Albumin 4.4 (3.3-5.0) g/dL Urine 10/21/23 Range/Units 01:15 Urine Color Yellow (Yellow) Urine Appearance Clear (Clear) Urine pH 5.0 (5.0-8.5) Ur Specific [place] 1.015 (1.000-1.030) Urine Protein Negative (Negative) Urine Glucose (UA) Negative (Negative) Imaging Chest x-ray: Radiologist's impression: Chest x-ray:IMPRESSION: Left retrocardiac streaky opacities, may represent atelectasis or infiltrates. Assessment and Plan Assessment and plan (1) Cellulitis: Status: Acute Plan Assessment: 1. Recent fall with subsequent sutured laceration on 10/08/2023 currently with minor drainage and surrounding erythema consistent with wound infection and surrounding cellulitis 2. Weakness with repeat fall and inability to do ADLs most likely from #1 above 3. Chest x-ray showing left retrocardiac streaky opacities representing atelectasis versus infiltrate consistent with community-acquired pneumonia 4. Leukocytosis with elevated lactic acid consistent with SIRS versus early sepsis from #1 and #3 above 5. Minor volume depletion/dehydration 6. Chronic kidney disease stage III 7. Coronary artery disease with minor troponin elevation consistent with myocardial infarction type II most likely from demand ischemia from #1 and #3 above 8. Diabetes mellitus type 2 9. Hypertension 10. Hyperlipidemia 11. Hypothyroidism on thyroid supplementation 12. Benign prostatic hypertrophy 13. Chronic normocytic anemia with no sign of acute active bleeding 14. Chronic lower extremity stasis versus diabetic wounds 15. Minor hypokalemia 16. Generalized weakness with deconditioning 17. History of atrial fibrillation with current AICD?chronically anticoagulated on Eliquis Plan: At this time Haris will be admitted to the medical service. It does appear that Haris currently has a left lower extremity wound infection with surrounding cellulitis. I will continue the IV Rocephin that was started in the emergency room. I will consult general surgery to see Haris in the a.m. for further evaluation to see if this wound needs to be opened up and sutures removed with further possible I&D. I will also ask wound clinic to see Haris on Sunday for ongoing evaluation and treatment of his new left lower extremity wound as well as his chronic right lower extremity wounds. I will ask for physical therapy and Occupational Therapy to see Haris for his worsening weakness and generalized deconditioning. I will continue some IV fluids as I do believe Haris is somewhat volume depleted and will need to watch his volume status closely with his chronic kidney disease and his coronary artery disease. I will continue him on his diabetes medications including his long-acting insulin and will ask for a sliding scale to be instituted as well. I will continue his home medications for his hypertension, hyperlipidemia, hypothyroidism and anticoagulation for his history of underlying atrial fibrillation and will ask pharmacy to reconcile his medications for accuracy. I will follow-up with chemistries and hematology labs for the a.m. I have discussed this plan with Haris and he is agreeable to proceed. Will continue to follow closely from medical standpoint. I did discuss CODE STATUS with Haris and he does wish to be a full code. I will order this in the chart. Telehealth: Statement Statement Telehealth Visit: Today's History and Physical is provided via interactive telehealth by Oswaldo Dunlap MD.? Patient is located at [facility].? Provider is located at [facility].? Nursing staff assisted with the patient's exam. The visit being done today meets criteria for a telehealth visit and the patient or patient?s parent/guardian is aware the visit is a telehealth visit. Camera Start Time: 04:34 Camera End Time: 04:51
[2023-10-21] MEDS: 0.9 % SODIUM CHLORIDE 1000 ml 1,000 ML 100 ML IV (05:47)
[2023-10-21] MEDS: LEVOTHYROXINE 50 MCG TABLET PO (06:37)
[2023-10-21 07:28] LABS: Basophils Percent Auto 0.1 % (0.0-3.0); Eosinophils Percent Auto 0.1 % (0.0-7.0); Hematocrit 32.2 % (37.0-53.0); Hemoglobin* 10.2 gm/dL (13.5-17.5); Immature Granulocytes Pct Auto 0.2 %; Lymphocytes Percent Auto 5.4 % (20-44); Mean Corpuscular HGB Conc 32 gm/dL (32-36); Mean Corpuscular Hemoglobin 33 pg (26-34); Mean Corpuscular Volume 105 fL (80-100); Monocytes Percent Auto 5.8 % (0.0-11.0); Neutrophils Percent Auto 88.4 % (42.0-72.0); Platelet Count* 255 K/uL (140-440); RDW Coefficient of Variation % 15.5 % (11.5-15.5); Red Blood Count 3.08 m/uL (4.30-5.90); White Blood Count* 14.54 K/uL (4.50-11.00)
[2023-10-21 07:34] LABS: Slide Review Reflex No
[2023-10-21 07:36] LABS: Chloride* 104 mmol/L (96-114); Potassium* 3.1 mmol/L (3.6-5.1); Sodium* 141 mmol/L (135-149)
[2023-10-21 07:38] LABS: Creatinine* 2.1 mg/dL (0.5-1.5); Est. Creatinine Clearance* 27.39; Estimated Glomerular Filt Rate 30 ml/min
[2023-10-21 07:39] LABS: Anion Gap 9 mEq/L (7-15); Blood Urea Nitrogen* 54 mg/dL (7-30); Calcium* 8.9 mg/dL (8.4-10.6); Carbon Dioxide* 28 mmol/L (20-32); Glucose* 128 mg/dL (60-115)
--- NOTE | 2023-10-21 07:42 | PC.NURSE ---
Pt admitted to med/surg unit from ED at 0405. He transferred from stretcher to bed with assist of 4 staff. He has been continent of bladder using urinal. Pt noted to be alert & oriented x 4 and denied pain when asked though has hx of pain to bilateral shoulders per pt report. Pt has wounds to bilateral lower extremities including laceration to LLE. LLE noted to be hot to touch with redness present which was noted by Cori SANTANA. Clean dressings applied to wounds located to bilateral lower extremities. LS clear to all lobes bilaterally though pt started on 2 LPM oxygen in ED due to O2 sat of 80% on RA. Blood glucose of 120 noted this morning. Abdominal folds noted to have redness present and zinc cream was applied in ED.
--- NOTE | 2023-10-21 07:55 | PC.NURSE ---
Prachi called this morning to request update on pt and asked, Will he be coming home today? I just can't take care of him at home anymore. He's fallen so many times. I just can't do it anymore. Gear Room Keeper reassured that MD has ordered pt to consult with wound clinic and surgeon due to the wound of LLE and that social work associate can assist her with SNF placement though social work associate won't be available until Sunday. Pt had told sign writer hand he estimated he's had 6 falls at home within the last year.
[2023-10-21] MEDS: lidocaine HCL 2 % JELLY (TOP) STERILE 6 ML TOPICAL (08:57)
[2023-10-21] MEDS: TAMSULOSIN HCL 0.4 MG CAPSULE PO (08:58)
[2023-10-21] MEDS: SODIUM CHLORIDE 0.9 % (FLUSH) 10 ML SYRINGE 5 ML IVF ×2 (08:58→20:31)
[2023-10-21] MEDS: FENOFIBRATE 145 MG TABLET PO (08:58)
[2023-10-21] MEDS: AMIODARONE 200 MG TABLET PO (08:58)
[2023-10-21] MEDS: GLIMEPIRIDE 1 MG TABLET 2 MG PO (08:58)
[2023-10-21] MEDS: FUROSEMIDE 40 MG TABLET PO (08:58)
[2023-10-21] MEDS: APIXABAN 5 MG TABLET 1.25 MG PO ×2 (09:00→20:29)
[2023-10-21] MEDS: METOPROLOL SUCCINATE (XL) 50 MG TAB PO (09:09)
[2023-10-21] MEDS: OMEPRAZOLE 20 MG CAPSULE DR PO ×2 (09:09→20:30)
--- NOTE | 2023-10-21 09:29 | P.GSCN_ITS ---
History of Present Illness Consult details Date Seen: 10/21/23 Consult date: 10/21/23 Narrative: The patient is an 83-year-old male who presented to the ER via EMS with difficulty walking and weakness. He was also noted to be hypoxic. He has a history of bilateral lower extremity wounds. These have been characterized as traumatic and/or diabetic, however likely are venous stasis ulcers. He had a fall on 10/08/2023. He was seen in the ER and was noted to have a laceration with bleeding. This was sutured. He had previously been a wound clinic patient and did follow-up with them 2 days ago. He was given compression wraps and dressings. He had not been wearing compression previous. In the ER, his dressings were taken down and he was noted to have cellulitis, worse on the left, with some eschar. He was admitted to the hospital for further cares. I was asked to see the patient regarding his wounds in the setting of cellulitis. PFSH PFSH Medical History Venous stasis ulcer ?I83.009 - Varicose veins of unspecified lower extremity with ulcer of unspecified site (ICD-10) ?L97.909 - Non-pressure chronic ulcer of unspecified part of unspecified lower leg with unspecified severity (ICD-10) Cellulitis of lower extremity ?L03.119 - Cellulitis of unspecified part of limb (ICD-10) Canales's esophagus with dysplasia, unspecified ?K22.719 - Canaels's esophagus with dysplasia, unspecified (ICD-10) Prostate mass ?N42.89 - Other specified disorders of prostate (ICD-10) Melanoma of eye ?C69.90 - Malignant neoplasm of unspecified site of unspecified eye (ICD-10) History of ventricular tachycardia ?Z86.79 - Personal history of other diseases of the circulatory system (ICD- 10) Health care directive on file (11/29/21) ?Z78.9 - Other specified health status (ICD-10) Surgical History History of hip surgery (11/10/21) ?Z98.890 - Other specified postprocedural states (ICD-10) Status post implantation of automatic cardioverter/defibrillator (AICD) ?Z95.810 - Presence of automatic (implantable) cardiac defibrillator (ICD-10) 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) ?Z96.641 - Presence of right artificial hip joint (ICD-10) 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 Pt reports stair lift at home which has really helped In the past 12 months, utilities in danger of being shut off: no In past 12 months, lack of transportation kept you from medical appts, meetings, work, or getting things needed for daily living: no In the past 12 mos, have been you worried that your food would run out before you had money to buy more?: never true In the past 12 mos, the food you bought just didn't last and you didn't have money to buy more?: never true Highest level of school completed/degree received: Associate degree: occupational, technical, vocational program Smoking Status: Never smoker How often do you have a drink containing alcohol: never How often do you have six or more drinks on one occasion: Never AUDIT-C Alcohol total score: 0 Non-prescribed substance use: denies use Caffeine: No How often does anyone, including family, friends and others, physically hurt you : never How often does anyone, including family, friends and others, insult or talk down to you: never How often does anyone, including family, friends and others, threaten you with harm: never How often does anyone, including family, friends and others, scream or curse at you: never Little interest or pleasure in doing things: not at all Feeling down, depressed, or hopeless: not at all service: No Meds Home Medications and Allergies Home Medications Medication Instructions Recorded Confirmed Type acetaminophen 500 mg tablet 1,000 mg PO TID PRN 04/11/22 10/21/23 History amiodarone 200 mg tablet 200 mg PO DAILY 04/11/22 10/21/23 History furosemide 40 mg tablet 40 mg PO DAILY 04/11/22 10/21/23 History loratadine 10 mg tablet (Allergy 10 mg PO DAILY PRN 04/11/22 10/21/23 History Relief (loratadine)) nitroglycerin 0.4 mg sublingual 0.4 mg sublingual ONCE PRN 04/11/22 10/21/23 History tablet apixaban 2.5 mg tablet (Eliquis) 1.25 mg PO BID 10/12/23 10/21/23 History insulin glargine 100 unit/mL (3 14 unit subcut DAILY 10/12/23 10/21/23 History mL) subcutaneous pen (Lantus Solostar U-100 Insulin) metoprolol succinate 50 mg 50 mg PO DAILY 10/12/23 10/21/23 History tablet,extended release 24 hr atorvastatin 20 mg tablet 20 mg PO HS 10/21/23 10/21/23 History fluticasone propionate 50 2 spray intranasal DAILY 10/21/23 10/21/23 History mcg/actuation nasal spray,suspension levothyroxine 50 mcg tablet 50 mcg PO DAILY 10/21/23 10/21/23 History Allergies Allergy/AdvReac Type Severity Reaction Status Date / Time adhesive Allergy Unknown Rash Verified 10/12/23 08:33 rosuvastatin Allergy Unknown muscle Verified 10/12/23 08:33 soreness/weakness Exam Narrative: Exam Narrative: General: No acute distress Respiratory: Patient is hypoxic into the high 80s on room air. This resolves with 2 L nasal cannula Extremities: Bilateral lower extremities noted to have varicosities with edema, worse on the left. Right lower extremity with a superficial partial-thickness wound on his anterior corbett. This measures 3 x 1.5 cm. There is crusting on this which is removed. Similarly he has a smaller wound on his right medial superior ankle. This is 1 x 1 cm. This is partial thickness. He does have cellulitis appearing on the right lower extremity which is contained to the midportion of the calf. On the left, he has a long laceration with sutures and eschar anteriorly. The wound measures 10 cm. Inferiorly this is closed. Superiorly there is eschar measuring 2 cm across. Cellulitis is much more marked on this leg. Extends above the knee amount the medial thigh. Feet are warm bilaterally. Palpable pedal pulses bilaterally Const: Vital Signs, click to edit/add: Vital Signs - 24 hr 10/21/23 00:03 10/21/23 00:03 10/21/23 00:15 Temperature 97.9 F Pulse Rate 76 62 Pulse Rate [Left P ulse Oximeter] Pulse Rate [Pulse Oximeter] 66 Respiratory Rate 26 H Blood Pressure Blood Pressure [Ri ght Arm] Blood Pressure [Ri ght Upper Arm] 113/55 L Pulse Oximetry 96 93 99 Oxygen Delivery Me thod Nasal Cannula Oxygen Flow Rate 2 10/21/23 00:30 10/21/23 00:35 10/21/23 00:36 Temperature Pulse Rate 65 65 Pulse Rate [Left P ulse Oximeter] Pulse Rate [Pulse Oximeter] Respiratory Rate Blood Pressure 111/59 L Blood Pressure [Ri ght Arm] Blood Pressure [Ri ght Upper Arm] Pulse Oximetry 83 L 97 100 Oxygen Delivery Me thod Oxygen Flow Rate 10/21/23 00:41 10/21/23 00:42 10/21/23 00:45 Temperature Pulse Rate 67 66 Pulse Rate [Left P ulse Oximeter] Pulse Rate [Pulse Oximeter] Respiratory Rate Blood Pressure 107/61 Blood Pressure [Ri ght Arm] Blood Pressure [Ri ght Upper Arm] Pulse Oximetry 96 100 96 Oxygen Delivery Me thod Nasal Cannula Oxygen Flow Rate 2 10/21/23 01:00 10/21/23 01:02 10/21/23 01:02 Temperature Pulse Rate 62 64 64 Pulse Rate [Left P ulse Oximeter] Pulse Rate [Pulse Oximeter] Respiratory Rate Blood Pressure 112/53 L 112/53 L Blood Pressure [Ri ght Arm] Blood Pressure [Ri ght Upper Arm] Pulse Oximetry 96 88 88 Oxygen Delivery Me thod Oxygen Flow Rate 10/21/23 01:15 10/21/23 01:22 10/21/23 01:30 Temperature Pulse Rate 68 62 67 Pulse Rate [Left P ulse Oximeter] Pulse Rate [Pulse Oximeter] Respiratory Rate Blood Pressure 110/44 L Blood Pressure [Ri ght Arm] Blood Pressure [Ri ght Upper Arm] Pulse Oximetry 95 95 95 Oxygen Delivery Me thod Oxygen Flow Rate 10/21/23 01:42 10/21/23 01:45 10/21/23 04:10 Temperature 98.4 F Pulse Rate 68 68 Pulse Rate [Left P ulse Oximeter] 71 Pulse Rate [Pulse Oximeter] Respiratory Rate 20 Blood Pressure 115/51 L Blood Pressure [Ri ght Arm] 101/55 L Blood Pressure [Ri ght Upper Arm] Pulse Oximetry 100 94 97 Oxygen Delivery Me thod Nasal Cannula Oxygen Flow Rate 2 10/21/23 05:02 Temperature Pulse Rate Pulse Rate [Left P ulse Oximeter] Pulse Rate [Pulse Oximeter] Respiratory Rate 20 Blood Pressure Blood Pressure [Ri ght Arm] Blood Pressure [Ri ght Upper Arm] Pulse Oximetry 97 Oxygen Delivery Me thod Nasal Cannula Oxygen Flow Rate 2 Results Labs Labs: Abnormal lab results 10/21/23 10/21/23 10/21/23 Range/Units 00:20 00:37 07:06 WBC 16.27 H 14.54 H (4.50-11.00) K/uL RBC 3.49 L 3.08 L (4.30-5.90) m/uL Hgb 11.4 L 10.2 L (13.5-17.5) gm/dL Hct 36.4 L 32.2 L (37.0-53.0) % MCV 104 H 105 H (80-100) fL MCHC 31 L (32-36) gm/dL RDW Coeff of Annabelle 15.6 H (11.5-15.5) % Neut % (Auto) 88.0 H 88.4 H (42.0-72.0) % Lymph % (Auto) 3.7 L 5.4 L (20-44) % Neut # (Auto) 14.30 H 12.90 H (1.7-7.0) K/uL Lymph # (Auto) 0.60 L 0.80 L (0.90-2.90) K/uL Steele # (Auto) 1.10 H (0.00-0.90) K/UL VBG pH 7.464 H (7.32-7.43) VBG HCO3 30 H (21-28) mmol/L Potassium 3.4 L 3.1 L (3.6-5.1) mmol/L BUN 58 H 54 H (7-30) mg/dL Creatinine 2.3 H 2.1 H (0.5-1.5) mg/dL Glucose 142 H 128 H (60-115) mg/dL Lactate 2.2 H (0.5-1.9) mmol/L Direct Bilirubin 0.6 H (0.0-0.5) mg/dL C-Reactive Protein 4.6 H (0.5-1.0) mg/dL POC Troponin I 0.07 H (0.01-0.04) ng/ml Diabetes panel 10/21/23 10/21/23 Range/Units 00:20 07:06 Sodium 141 141 (135-149) mmol/L Potassium 3.4 L 3.1 L (3.6-5.1) mmol/L Chloride 100 104 (96-114) mmol/L Carbon Dioxide 28 28 (20-32) mmol/L BUN 58 H 54 H (7-30) mg/dL Creatinine 2.3 H 2.1 H (0.5-1.5) mg/dL Glucose 142 H 128 H (60-115) mg/dL Calcium 9.5 8.9 (8.4-10.6) mg/dL AST 33 (12-35) U/L ALT 17 (4-50) U/L Alkaline Phosphatase 51 (40-150) U/L Total Protein 7.8 (6.0-8.3) g/dL Albumin 4.4 (3.3-5.0) g/dL Calcium panel 10/21/23 10/21/23 Range/Units 00:20 07:06 Calcium 9.5 8.9 (8.4-10.6) mg/dL Albumin 4.4 (3.3-5.0) g/dL Pituitary panel 10/21/23 10/21/23 Range/Units 00:20 07:06 Sodium 141 141 (135-149) mmol/L Potassium 3.4 L 3.1 L (3.6-5.1) mmol/L Chloride 100 104 (96-114) mmol/L Carbon Dioxide 28 28 (20-32) mmol/L BUN 58 H 54 H (7-30) mg/dL Creatinine 2.3 H 2.1 H (0.5-1.5) mg/dL Glucose 142 H 128 H (60-115) mg/dL Calcium 9.5 8.9 (8.4-10.6) mg/dL Adrenal panel 10/21/23 10/21/23 Range/Units 00:20 07:06 Sodium 141 141 (135-149) mmol/L Potassium 3.4 L 3.1 L (3.6-5.1) mmol/L Chloride 100 104 (96-114) mmol/L Carbon Dioxide 28 28 (20-32) mmol/L BUN 58 H 54 H (7-30) mg/dL Creatinine 2.3 H 2.1 H (0.5-1.5) mg/dL Glucose 142 H 128 H (60-115) mg/dL Calcium 9.5 8.9 (8.4-10.6) mg/dL Total Bilirubin 1.3 (0.1-1.5) mg/dL AST 33 (12-35) U/L ALT 17 (4-50) U/L Alkaline Phosphatase 51 (40-150) U/L Total Protein 7.8 (6.0-8.3) g/dL Albumin 4.4 (3.3-5.0) g/dL All other labs normal. Progress Note:A&P Assessment and plan (1) Cellulitis: Status: Acute (2) Diabetic neuropathy: Status: Acute (3) Skin tear: Status: Acute (4) Laceration of leg: Status: Acute (5) Venous stasis ulcer: Status: Acute Plan The patient is an 83-year-old male with known venous stasis disease and diabetes. He now has bilateral lower extremity wounds, the most severe on the left which occurred in the setting of trauma, however is likely exacerbated by diabetes and venous stasis disease. Sutures were removed today. The wound was debrided. Cultures were obtained. -recommend daily dressing changes with Xeroform to all open wounds. Patient should be in Sourav compression wraps well inpatient. -follow-up wound culture results, however continue broad antibiotics -patient should follow-up again in wound clinic after discharge
[2023-10-21 09:45] LABS: NT Pro B Type NatriureticPept* 12300 pg/mL; Troponin I* 0.07 ng/mL (0.01-0.04)
[2023-10-21] MEDS: PIPERACILLIN/TAZOBACTAM 2.25 GM in 0.9 % SODIUM CHLORIDE Mini-bag 100 ML IVPB ×3 (10:18→20:31)
[2023-10-21] MEDS: POTASSIUM BICARB 25 MEQ EFFERVESCENT TAB 50 MEQ PO (10:24)
[2023-10-21] MEDS: ASPIRIN 81 MG TAB.CHEW 162 MG PO (10:27)
--- NOTE | 2023-10-21 10:31 | PM.PROC ---
Procedure Note Date Seen: 10/21/23 Will [facility] bill your pro fee for this procedure?: Yes Pre-op diagnosis: Left lower extremity wound with necrosis and cellulitis Post-op diagnosis: same Procedure: Sharp debridement down to subcutaneous fat, left lower extremity wound co 3 x 5 cm Procedure Description: Verbal consent was obtained. Topical lidocaine was placed on the wound and left in place for 10 minutes. The nylon sutures were removed from the inferior aspect of the wound. There is an area inferiorly which is open. Green/ndiaye Necrotic tissue is visible underneath. This was sharply debrided using a curette until bleeding tissue was encountered.. This tissue was sent for culture. Hemostasis was achieved here with pressure. Attention was turned to the superior aspect of the wound. This appears to be full-thickness at the medial aspect of the wound, however the majority is partial thickness. The necrotic epidermis was excised using a combination of forceps and curette, again down to subcutaneous fat on the medial aspect. Once this was debrided, there was diffuse oozing noted. Pressure was applied. There was 1 area that continued to bleed. Surgicel was placed over this. Pressure was held for 5 minutes. This resulted in excellent hemostasis. The wounds were then dressed with Xeroform. Mepilex was placed over the patient's knee wound. The legs were then wrapped with Kerlix and an Sourav. Anesthesia: other (Topical) Surgeon: Rosas Pathology: other (Culture) Condition: stable
--- NOTE | 2023-10-21 13:24 | REH.OT ---
Orders received for OT eval and treat. Patient has been unavailable today due to multiple tests. Will assess on 10/22/23.
[2023-10-21 13:46] LABS: Troponin I* 0.08 ng/mL (0.01-0.04)
--- NOTE | 2023-10-21 15:04 | P.IMPN_ITS ---
Progress Note: A&P Assessment and plan (1) Cellulitis: Problem details: Moderately ill with profound weakness, fever, elevated lactate, elevated white blood count, low blood pressure. Associated with left leg laceration as well as venous stasis skin changes on both legs. Broad-spectrum coverage pending cultures. Vancomycin, Zosyn. 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 Now elevated troponin in the context of acute dyspnea and acute illness. Monitor for symptoms trend troponin Status: Acute (7) Hypertension: Problem details: Resume home medications. Caution due to low blood pressure which may be due to acute illness Status: Acute (8) Atrial flutter: Problem details: Currently on half dose of normal renal dose anticoagulation, apixaban 1.25 mg twice daily. Continue that for now especially with antiplatelet therapy and risk for bleeding. Status: Acute (9) Hypoxic respiratory failure: Problem details: Possibly due to heart failure versus pneumonia. Caution with diuresis. Antibiotics should appropriately treat pneumonia Status: Acute (10) Congestive heart failure: Problem details: May be contributing to current hypoxia. Continue home diuresis cautiously due to low blood pressure Status: Acute (11) Weakness: Problem details: PT and OT to evaluate Status: Acute (12) Risk for falls: Problem details: PT and OT to evaluate Status: Acute (13) Gastric ulcer: Problem details: Caution with anticoagulation and anti-platelet therapy due to gastric ulcer Status: Acute (14) Anemia: Problem details: Chronic. Continue to monitor in light of anticoagulation and antiplatelet therapy Status: Acute (15) Elevated troponin: Problem details: Trend troponin, monitor symptoms. Status: Acute Plan Admit to the hospital for management of cellulitis possible sepsis possible acute coronary syndrome and hypoxic respiratory failure. Time Spent With Patient Total time spent: Total time spent today is 60 minutes, 40 minutes in coordination of care discussing with patient other providers management of cellulitis and hypoxia Subjective Date Seen: 10/21/23 Interval history: Haris Villa is a 83 year old male who presented to the emergency room with increasing weakness and redness in his left lower extremity wound. Haris has a past medical history of diabetes with diabetic neuropathy and diabetic nephropathy, coronary artery disease, hypertension, hyperlipidemia, atrial fibrillation anticoagulated on Eliquis, BPH, chronic anemia, hypothyroidism on thyroid supplementation and history of ICD placement. Haris has a significant recent history of suffering a fall on 10/08 of this year when he was walking on a porch and subsequently slipped and fell in the snow. He unfortunately suffered a laceration of his left lower extremity and was seen in the emergency room at that time. The laceration was sutured and he was sent to the wound clinic for follow-up as he does have chronic right lower extremity wounds that have been seen in the wound clinic previously. Unfortunately, he started noticing some drainage from the left lower extremity wound as well as symptoms of being chilled and decreased appetite. He also noticed some increasing erythema and swelling around the wound site and he presented to the emergency room with the symptoms along with worsening weakness and inability to do his ADLs. In the emergency room he was evaluated and found to have an infected wound with surrounding cellulitis. He was given 1 g of IV Rocephin and is currently being admitted to the medical service for ongoing evaluation and treatment. At the time I am seeing Haris, he does confirm the above history. He states that with his weakness he did fall out of bed earlier this morning and was unable to get up and that is why he presented to the emergency room. He otherwise denies any other acute complaints or problems at the time I am seeing him. Patient reports that he is normally able to ambulate but became quite weak recently. He reports no other symptoms of illness, cold, sore throat, cough, shortness of breath, chest pain. He is on oxygen at this time. He reports currently is breathing is comfortable. He does not normally have oxygen and is not known to have chronic lung disease. He does have a history of congestive heart failure. He also has a history of coronary artery disease and atrial flutter. He has an ICD that was interrogated last month and found to be working well with good battery life. He has a history of atrial flutter and is on half normal renal dose anticoagulation with apixaban 1.25 mg twice daily. He does have a history of GI bleeding Exam Narrative: Exam Narrative: He is alert, tired appearing but otherwise in no distress breathing oxygen per nasal cannula. Respirations with a few basilar crackles otherwise clear to auscultation. Cardiovascular: S1, S2, regular rate and rhythm. Abdomen: Bowel sounds active. Abdomen is soft without tenderness or mass. Extremities notable for left lower extremity having a large anterior distal corbett laceration. Sutures are still in place from 13 days ago. The low laceration is approximately 10 cm long with the upper half of that without sutures and appears to be healing by secondary intention with no obvious abscess. The lower half has sutures in place. Dr. Pillai did debride this a little bit and cultured the wound. The entire left leg is warm erythematous and edematous. Not particularly tender to touch. The right lower extremity has 2 superficial ulcers with some gauze packing in place. One anteriorly is about 3 cm and 1 posteriorly is about 1 cm. There is moderate erythema around the distal calf in the area of these ulcers and circumferentially on the right side as well. Strong pedal pulses and diminished distal sensation bilaterally Const: Vital Signs, click to edit/add: Vital Signs - 24 hr 10/21/23 00:03 10/21/23 00:03 10/21/23 00:15 Temperature 97.9 F Pulse Rate 76 62 Pulse Rate [Left P ulse Oximeter] Pulse Rate [Pulse Oximeter] 66 Respiratory Rate 26 H Blood Pressure Blood Pressure [Ri ght Arm] Blood Pressure [Ri ght Upper Arm] 113/55 L Pulse Oximetry 96 93 99 Oxygen Delivery Me thod Nasal Cannula Oxygen Flow Rate 2 10/21/23 00:30 10/21/23 00:35 10/21/23 00:36 Temperature Pulse Rate 65 65 Pulse Rate [Left P ulse Oximeter] Pulse Rate [Pulse Oximeter] Respiratory Rate Blood Pressure 111/59 L Blood Pressure [Ri ght Arm] Blood Pressure [Ri ght Upper Arm] Pulse Oximetry 83 L 97 100 Oxygen Delivery Me thod Oxygen Flow Rate 10/21/23 00:41 10/21/23 00:42 10/21/23 00:45 Temperature Pulse Rate 67 66 Pulse Rate [Left P ulse Oximeter] Pulse Rate [Pulse Oximeter] Respiratory Rate Blood Pressure 107/61 Blood Pressure [Ri ght Arm] Blood Pressure [Ri ght Upper Arm] Pulse Oximetry 96 100 96 Oxygen Delivery Me thod Nasal Cannula Oxygen Flow Rate 2 10/21/23 01:00 10/21/23 01:02 10/21/23 01:02 Temperature Pulse Rate 62 64 64 Pulse Rate [Left P ulse Oximeter] Pulse Rate [Pulse Oximeter] Respiratory Rate Blood Pressure 112/53 L 112/53 L Blood Pressure [Ri ght Arm] Blood Pressure [Ri ght Upper Arm] Pulse Oximetry 96 88 88 Oxygen Delivery Me thod Oxygen Flow Rate 10/21/23 01:15 10/21/23 01:22 10/21/23 01:30 Temperature Pulse Rate 68 62 67 Pulse Rate [Left P ulse Oximeter] Pulse Rate [Pulse Oximeter] Respiratory Rate Blood Pressure 110/44 L Blood Pressure [Ri ght Arm] Blood Pressure [Ri ght Upper Arm] Pulse Oximetry 95 95 95 Oxygen Delivery Me thod Oxygen Flow Rate 10/21/23 01:42 10/21/23 01:45 10/21/23 04:10 Temperature 98.4 F Pulse Rate 68 68 Pulse Rate [Left P ulse Oximeter] 71 Pulse Rate [Pulse Oximeter] Respiratory Rate 20 Blood Pressure 115/51 L Blood Pressure [Ri ght Arm] 101/55 L Blood Pressure [Ri ght Upper Arm] Pulse Oximetry 100 94 97 Oxygen Delivery Me thod Nasal Cannula Oxygen Flow Rate 2 10/21/23 05:02 10/21/23 08:00 10/21/23 08:00 Temperature 99.8 F H Pulse Rate Pulse Rate [Left P ulse Oximeter] 78 Pulse Rate [Pulse Oximeter] Respiratory Rate 20 24 24 Blood Pressure Blood Pressure [Ri ght Arm] 106/59 L Blood Pressure [Ri ght Upper Arm] Pulse Oximetry 97 93 Oxygen Delivery Me thod Nasal Cannula Nasal Cannula Oxygen Flow Rate 2 1.5 10/21/23 12:15 10/21/23 12:34 Temperature 98.1 F Pulse Rate 71 Pulse Rate [Left P ulse Oximeter] 78 Pulse Rate [Pulse Oximeter] Respiratory Rate 20 Blood Pressure Blood Pressure [Ri ght Arm] 102/52 L Blood Pressure [Ri ght Upper Arm] Pulse Oximetry 93 Oxygen Delivery Me thod Nasal Cannula Oxygen Flow Rate 1.5 Documenting provider has reviewed patient's vital signs: yes Labs Labs: Laboratory Results - last 24 hr 0110/21/23 10/21/23 23:55 00:20 00:37 WBC 16.27 H RBC 3.49 L Hgb 11.4 L Hct 36.4 L MCV 104 H MCH 33 MCHC 31 L RDW Coeff of Annabelle 15.6 H Plt Count 280 Neut % (Auto) 88.0 H Lymph % (Auto) 3.7 L [place] % (Auto) 6.7 Eos % (Auto) 0.2 Baso % (Auto) 0.1 Neut # (Auto) 14.30 H Lymph # (Auto) 0.60 L [place] # (Auto) 1.10 H Eos # (Auto) 0.00 Baso # (Auto) 0.00 Abs Immat Gran (auto) 0.20 Imm/Tot Granulo (auto) 1.3 D-Dimer Quant (PE/DVT) VBG pH 7.464 H VBG pCO2 42 VBG pO2 28.9 VBG HCO3 30 H Sodium 141 Potassium 3.4 L Chloride 100 Carbon Dioxide 28 Anion Gap 13 BUN 58 H Creatinine 2.3 H Estimated Creat Clear 25.01 Estimated GFR 27 Glucose 142 H Lactate 2.2 H Calcium 9.5 Total Bilirubin 1.3 Direct Bilirubin 0.6 H AST 33 ALT 17 Alkaline Phosphatase 51 Troponin I C-Reactive Protein 4.6 H NT-Pro-B Natriuret Pep Total Protein 7.8 Albumin 4.4 Urine Color Urine Appearance Urine pH Ur Specific [place] Urine Protein Urine Glucose (UA) Urine Ketones Urine Blood Urine Nitrite Urine Bilirubin Urine Urobilinogen Ur Leukocyte Esterase Urine RBC Urine WBC Ur Squamous Epith Cells Urine Bacteria SARS-CoV-2 (PCR) Negative SARS-CoV-2 Influenza Type A (PCR) Negative PCR FLU A Influenza Type B (PCR) Negative PCR FLU B RSV (PCR) Negative PCR RSV Lab Acknowledgement POC Troponin I 0.07 H 10/21/23 10/21/23 10/21/23 01:15 07:06 09:14 WBC 14.54 H RBC 3.08 L Hgb 10.2 L Hct 32.2 L MCV 105 H MCH 33 MCHC 32 RDW Coeff of Annabelle 15.5 Plt Count 255 Neut % (Auto) 88.4 H Lymph % (Auto) 5.4 L [place] % (Auto) 5.8 Eos % (Auto) 0.1 Baso % (Auto) 0.1 Neut # (Auto) 12.90 H Lymph # (Auto) 0.80 L [place] # (Auto) 0.80 Eos # (Auto) 0.00 Baso # (Auto) 0.00 Abs Immat Gran (auto) 0.00 Imm/Tot Granulo (auto) 0.2 D-Dimer Quant (PE/DVT) 0.60 H VBG pH VBG pCO2 VBG pO2 VBG HCO3 Sodium 141 Potassium 3.1 L Chloride 104 Carbon Dioxide 28 Anion Gap 9 BUN 54 H Creatinine 2.1 H Estimated Creat Clear 27.39 Estimated GFR 30 Glucose 128 H Lactate Calcium 8.9 Total Bilirubin Direct Bilirubin AST ALT Alkaline Phosphatase Troponin I 0.07 H* C-Reactive Protein NT-Pro-B Natriuret Pep 62457 Total Protein Albumin Urine Color Yellow Urine Appearance Clear Urine pH 5.0 Ur Specific [place] 1.015 Urine Protein Negative Urine Glucose (UA) Negative Urine Ketones Negative Urine Blood Negative Urine Nitrite Negative Urine Bilirubin Negative Urine Urobilinogen 0.2 Ur Leukocyte Esterase Negative Urine RBC 0-2 Urine WBC 0-2 Ur Squamous Epith Cells Few Urine Bacteria None SARS-CoV-2 (PCR) Influenza Type A (PCR) Influenza Type B (PCR) RSV (PCR) Lab Acknowledgement Test Added POC Troponin I 10/21/23 10/21/23 10:13 13:05 WBC RBC Hgb Hct MCV MCH MCHC RDW Coeff of Annabelle Plt Count Neut % (Auto) Lymph % (Auto) [place] % (Auto) Eos % (Auto) Baso % (Auto) Neut # (Auto) Lymph # (Auto) [place] # (Auto) Eos # (Auto) Baso # (Auto) Abs Immat Gran (auto) Imm/Tot Granulo (auto) D-Dimer Quant (PE/DVT) VBG pH VBG pCO2 VBG pO2 VBG HCO3 Sodium Potassium Chloride Carbon Dioxide Anion Gap BUN Creatinine Estimated Creat Clear Estimated GFR Glucose Lactate Calcium Total Bilirubin Direct Bilirubin AST ALT Alkaline Phosphatase Troponin I 0.08 H* C-Reactive Protein NT-Pro-B Natriuret Pep Total Protein Albumin Urine Color Urine Appearance Urine pH Ur Specific [place] Urine Protein Urine Glucose (UA) Urine Ketones Urine Blood Urine Nitrite Urine Bilirubin Urine Urobilinogen Ur Leukocyte Esterase Urine RBC Urine WBC Ur Squamous Epith Cells Urine Bacteria SARS-CoV-2 (PCR) Influenza Type A (PCR) Influenza Type B (PCR) RSV (PCR) Lab Acknowledgement Test Added POC Troponin I
--- NOTE | 2023-10-21 20:03 | PC.NURSE ---
Pt up with walker, gait belt and 1-2 due to chronic shoulder pain; once standing ambulates steadily within room. Denies pain. ASSINIBOINE AND [employer]BES.
--- NOTE | 2023-10-21 20:15 | PC.NURSE ---
B/P of 93/50 noted to R arm and B/P of 80/42 noted to L arm with 1900 vital signs. Pt denied dizziness/lightheadedness when asked, even with standing. Computer Console Operator did update MD Florez. advised to continue to monitor B/Ps Q2-4H. Bladder scan completed with PVR of 11 mL noted and EKG completed with results given to MD Florez. Pt in bed resting at this time.
[2023-10-22] VITALS (10 sets, daily range): BP systolic 102–121; BP diastolic 51–62; PULSE 53–71; RESP 18–20; TEMP 36.1–36.8; O2SAT 92–99; BMI 34.9
[2023-10-22] MEDS: SODIUM CHLORIDE 0.9 % (FLUSH) 10 ML SYRINGE 5 ML IVF ×4 (02:52→21:21)
[2023-10-22] MEDS: PIPERACILLIN/TAZOBACTAM 2.25 GM in 0.9 % SODIUM CHLORIDE Mini-bag 100 ML IVPB ×4 (02:52→21:19)
[2023-10-22] MEDS: LEVOTHYROXINE 50 MCG TABLET PO (06:01)
--- NOTE | 2023-10-22 06:31 | PC.NURSE ---
End of shift note [id number]: Pt remains alert & oriented x 4 and able to make needs known. He is continent of bladder using urinal. Bladder scan was performed last evening per order with PVR of 11 mL noted. EKG also completed per order with results given to MD Florez for review. Pt has hx of A fib and has been in A fib and R bundle branch block with demand pacemaker noted on telemetry. He was able to safely transfer from chair to bed using assist of 2 with FWW and GB. IV to bilateral forearms remain patent and SL other than when pt receiving IV ABX. Wounds to bilateral lower extremities noted to be covered with wound dressings and AMINTA wraps in place. B/P trending low last evening though has since improved. Associate Financial Advisor has encouraged elevation of BLEs to help reduce edema and encouraged pillow under legs throughout the shift though pt refused to have pillow placed under BLEs despite encouragement and education. Pt able to reposition self side to side in bed. Blood glucose of 130 at HS last evening. Pt has been afebrile throughout the shift. Zinc protective cream applied to reddened abdominal folds after cleansing and patting dry.
[2023-10-22 06:32] LABS: HCO3 VBG 31 mmol/L (21-28); Lactate* 0.7 mmol/L (0.5-1.9); PCO2 VBG 47 mmHG (40-50); PO2 VBG 66.6 mmHG (25-47); pH VBG 7.432 (7.32-7.43)
[2023-10-22 06:44] LABS: Basophils Absolute Auto 0.02 K/uL (0.00-0.30); Basophils Percent Auto 0.2 % (0.0-3.0); Eosinophils Absolute Auto 0.26 K/uL (0.00-0.50); Eosinophils Percent Auto 2.7 % (0.0-7.0); Hematocrit 31.5 % (37.0-53.0); Hemoglobin* 9.9 gm/dL (13.5-17.5); Immature Granulocytes Abs Auto 0.02 K/uL (0.00-0.30); Immature Granulocytes Pct Auto 0.2 %; Lymphocytes Percent Auto 10.6 % (20-44); Mean Corpuscular HGB Conc 31 gm/dL (32-36); Mean Corpuscular Hemoglobin 33 pg (26-34); Mean Corpuscular Volume 106 fL (80-100); Monocytes Percent Auto 11.3 % (0.0-11.0); Platelet Count* 225 K/uL (140-440); RDW Coefficient of Variation % 15.7 % (11.5-15.5); Red Blood Count 2.98 m/uL (4.30-5.90); White Blood Count* 9.78 K/uL (4.50-11.00)
[2023-10-22 07:04] LABS: Slide Review Reflex No
[2023-10-22 07:31] LABS: Anion Gap 7 mEq/L (7-15); Blood Urea Nitrogen* 57 mg/dL (7-30); Calcium* 8.8 mg/dL (8.4-10.6); Carbon Dioxide* 30 mmol/L (20-32); Chloride* 102 mmol/L (96-114); Est. Creatinine Clearance* 28.76; Estimated Glomerular Filt Rate 32 ml/min; Glucose* 99 mg/dL (60-115); Magnesium* 2.3 mg/dL (1.5-2.6); Potassium* 3.6 mmol/L (3.6-5.1); Sodium* 139 mmol/L (135-149)
[2023-10-22 07:32] LABS: Troponin I* 0.06 ng/mL (0.01-0.04)
[2023-10-22 07:33] LABS: C Reactive Protein* 15.1 mg/dL (0.5-1.0)
[2023-10-22] MEDS: GLIMEPIRIDE 1 MG TABLET 2 MG PO (08:47)
[2023-10-22] MEDS: FLUTICASONE PROPIONATE NASAL 2 SPRAY NOSTRIL-B (08:47)
[2023-10-22] MEDS: FENOFIBRATE 145 MG TABLET PO (08:47)
[2023-10-22] MEDS: FUROSEMIDE 40 MG TABLET PO (08:48)
[2023-10-22] MEDS: APIXABAN 5 MG TABLET 1.25 MG PO ×2 (08:48→21:19)
[2023-10-22] MEDS: METOPROLOL SUCCINATE (XL) 50 MG TAB PO (08:48)
[2023-10-22] MEDS: OMEPRAZOLE 20 MG CAPSULE DR PO ×2 (08:48→21:19)
[2023-10-22] MEDS: TAMSULOSIN HCL 0.4 MG CAPSULE PO (08:48)
[2023-10-22] MEDS: AMIODARONE 200 MG TABLET PO (09:03)
[2023-10-22] MEDS: POTASSIUM BICARB 25 MEQ EFFERVESCENT TAB 50 MEQ PO (11:25)
[2023-10-22] MEDS: INSULIN ASPART 100 UNIT/ML SUBCUT ×3 (11:26→21:20)
--- NOTE | 2023-10-22 13:14 | PM.GSPN ---
Subjective Subjective Date Seen: 10/22/23 Interval history: Guillermo is doing better today. Still having some discomfort in his legs. Exam Narrative: Exam Narrative: General: No acute distress Extremities: Bilateral lower extremities examined. Right lower extremity wounds are stable. Minimal swelling on the right. Left lower extremity wounds also stable - still with cellulitis and swelling. No ongoing necrosis or need for debridement. Surgicel placed over the bleeding area. 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 Const: Vital Signs, click to edit/add: Vital Signs - 24 hr 10/21/23 15:00 10/21/23 15:00 10/21/23 19:27 Temperature 97.4 F L 97.4 F L Pulse Rate 60 Pulse Rate [Left P ulse Oximeter] 62 66 Respiratory Rate 22 20 Blood Pressure [Ri ght Arm] 95/54 L 93/50 L Pulse Oximetry 96 91 Oxygen Delivery Me thod Nasal Cannula Nasal Cannula Oxygen Flow Rate 1.5 1.5 10/21/23 22:47 10/21/23 22:47 10/21/23 23:00 Temperature 98.3 F Pulse Rate Pulse Rate [Left P ulse Oximeter] 58 L 58 L Respiratory Rate 18 18 18 Blood Pressure [Ri ght Arm] 107/61 Pulse Oximetry 93 93 Oxygen Delivery Me thod Nasal Cannula Nasal Cannula Oxygen Flow Rate 1.5 1.5 10/21/23 23:01 10/22/23 02:43 10/22/23 07:43 Temperature 97.4 F L 97.3 F L Pulse Rate 58 L Pulse Rate [Left P ulse Oximeter] 68 68 Respiratory Rate 20 20 Blood Pressure [Ri ght Arm] 112/62 103/51 L Pulse Oximetry 94 92 Oxygen Delivery Me thod Nasal Cannula Nasal Cannula Oxygen Flow Rate 1.5 1.5 10/22/23 07:43 10/22/23 10:34 10/22/23 11:20 Temperature 97.3 F L Pulse Rate 62 Pulse Rate [Left P ulse Oximeter] 67 Respiratory Rate 20 18 Blood Pressure [Ri ght Arm] 102/55 L Pulse Oximetry 92 92 Oxygen Delivery Me thod Nasal Cannula Nasal Cannula Oxygen Flow Rate 1.5 1 Labs/Imaging Labs Labs: White blood cell count is normal. CRP is 15 from 4. Wound culture as well as blood cultures growing Gram-positive cocci. Progress Note:A&P Assessment and plan (1) Venous stasis ulcer: Status: Acute Plan The patient is an 83-year-old male with bilateral lower extremity wounds, cellulitis and bacteremia. -wounds are stable today. Cellulitis is stable. No need for further debridement. White blood cell count is improved. -wound care orders placed. -continue antibiotics and narrow as able -patient is going to follow-up in wound clinic
--- NOTE | 2023-10-22 13:41 | PM.IMPN1 ---
Progress Note: A&P Assessment and plan (1) Bacteremia: Problem details: Blood cultures growing Gram-positive cocci and Gram-negative alfred. Id and sensitivity pending. Continue vancomycin and Zosyn Status: Acute (2) Cellulitis: Problem details: Moderately ill with profound weakness, fever, elevated lactate, elevated white blood count, low blood pressure. Associated with left leg laceration as well as venous stasis skin changes on both legs. Broad-spectrum coverage pending cultures. Vancomycin, Zosyn. Status: Acute (3) Venous stasis ulcer: Problem details: Right lower extremity ulcers may be traumatic or venous stasis with some associated cellulitis Status: Acute (4) Diabetic neuropathy: Status: Acute (5) Laceration of leg: Problem details: Wound care per surgery and then outpatient wound clinic Status: Acute (6) Arteriosclerotic cardiovascular disease: Problem details: s/p [id number], 2011, s/p CABG 2011. Now elevated troponin in the context of acute dyspnea and acute illness. Monitor for symptoms trend troponin Status: Acute (7) Elevated troponin: Problem details: Trend troponin, monitor symptoms. Status: Acute (8) Risk for falls: Problem details: PT and OT to evaluate Status: Acute (9) Weakness: Problem details: PT and OT to evaluate Status: Acute (10) Hypoxic respiratory failure: Problem details: Possibly due to heart failure versus pneumonia. Caution with diuresis. Antibiotics should appropriately treat pneumonia Status: Acute (11) Pneumonia: Problem details: Chest x-ray suspicious for pneumonia, hypoxia and sepsis. Vancomycin and Zosyn pending clinical course Status: Acute (12) Congestive heart failure: Problem details: May be contributing to current hypoxia. Continue home diuresis cautiously due to low blood pressure Status: Acute (13) Hypertension: Problem details: Resume home medications. 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 Continue that for now especially with antiplatelet therapy and risk for bleeding. Status: Acute (16) Hyperlipidemia: Status: Acute (17) CKD (chronic kidney disease) stage 3, GFR 30-59 ml/min: Status: Acute Plan Continue in hospital for IV antibiotics and wound care, respiratory support for hypoxic respiratory failure. Time Spent With Patient Total time spent: Total time spent today is 55 minutes, 45 minutes in coordination of care discussing with patient and other providers management of hypoxic respiratory failure sepsis and wound care Subjective Date Seen: 10/22/23 Interval history: Haris Villa is a 83 year old male who presented to the emergency room with increasing weakness and redness in his left lower extremity wound. Haris has a past medical history of diabetes with diabetic neuropathy and diabetic nephropathy, coronary artery disease, hypertension, hyperlipidemia, atrial fibrillation anticoagulated on Eliquis, BPH, chronic anemia, hypothyroidism on thyroid supplementation and history of ICD placement. Haris has a significant recent history of suffering a fall on 10/08 of this year when he was walking on a porch and subsequently slipped and fell in the snow. He unfortunately suffered a laceration of his left lower extremity and was seen in the emergency room at that time. The laceration was sutured and he was sent to the wound clinic for follow-up as he does have chronic right lower extremity wounds that have been seen in the wound clinic previously. Unfortunately, he started noticing some drainage from the left lower extremity wound as well as symptoms of being chilled and decreased appetite. He also noticed some increasing erythema and swelling around the wound site and he presented to the emergency room with the symptoms along with worsening weakness and inability to do his ADLs. In the emergency room he was evaluated and found to have an infected wound with surrounding cellulitis. He was given 1 g of IV Rocephin and is currently being admitted to the medical service for ongoing evaluation and treatment. At the time I am seeing Haris, he does confirm the above history. He states that with his weakness he did fall out of bed earlier this morning and was unable to get up and that is why he presented to the emergency room. He otherwise denies any other acute complaints or problems at the time I am seeing him. Patient reports that he is normally able to ambulate but became quite weak recently. He reports no other symptoms of illness, cold, sore throat, cough, shortness of breath, chest pain. He is on oxygen at this time. He reports currently is breathing is comfortable. He does not normally have oxygen and is not known to have chronic lung disease. He does have a history of congestive heart failure. He also has a history of coronary artery disease and atrial flutter. He has an ICD that was interrogated last month and found to be working well with good battery life. He has a history of atrial flutter and is on half normal renal dose anticoagulation with apixaban 1.25 mg twice daily. He does have a history of GI bleeding Today he thinks is a little better than yesterday. He is not aware of dyspnea but still requiring oxygen. No chest pain. Still feels weak but thinks he is a little better. Exam Narrative: Exam Narrative: He is alert appears in no distress. Respirations are clear to auscultation with a rare basilar crackle. Cardiovascular: S1, S2, regular rate and rhythm. Abdomen is soft. Bowel sounds are active. No tenderness or mass. Extremities are examined. He has a dusky erythema over both lower extremities left greater than right. The wound on his left leg as the sutures now removed and small amount of drainage on the dressing. No obvious abscess is present. On the right leg he is also her as more prominent purulent exudate coming from the anterior lesion and less so from the posterior 1. Const: Vital Signs, click to edit/add: Vital Signs - 24 hr 10/21/23 15:00 10/21/23 15:00 10/21/23 19:27 Temperature 97.4 F L 97.4 F L Pulse Rate 60 Pulse Rate [Left P ulse Oximeter] 62 66 Respiratory Rate 22 20 Blood Pressure [Ri t Arm] 95/54 L 93/50 L Pulse Oximetry 96 91 Oxygen Delivery Me thod Nasal Cannula Nasal Cannula Oxygen Flow Rate 1.5 1.5 10/21/23 22:47 10/21/23 22:47 10/21/23 23:00 Temperature 98.3 F Pulse Rate Pulse Rate [Left P ulse Oximeter] 58 L 58 L Respiratory Rate 18 18 18 Blood Pressure [Ri t Arm] 107/61 Pulse Oximetry 93 93 Oxygen Delivery Me thod Nasal Cannula Nasal Cannula Oxygen Flow Rate 1.5 1.5 10/21/23 23:01 10/22/23 02:43 10/22/23 07:43 Temperature 97.4 F L 97.3 F L Pulse Rate 58 L Pulse Rate [Left P ulse Oximeter] 68 68 Respiratory Rate 20 20 Blood Pressure [[facility] Arm] 112/62 103/51 L Pulse Oximetry 94 92 Oxygen Delivery Me thod Nasal Cannula Nasal Cannula Oxygen Flow Rate 1.5 1.5 10/22/23 07:43 10/22/23 10:34 10/22/23 11:20 Temperature 97.3 F L Pulse Rate 62 Pulse Rate [Left P ulse Oximeter] 67 Respiratory Rate 20 18 Blood Pressure [Ri ght Arm] 102/55 L Pulse Oximetry 92 92 Oxygen Delivery Me thod Nasal Cannula Nasal Cannula Oxygen Flow Rate 1.5 1 Documenting provider has reviewed patient's vital signs: yes Labs Labs: Laboratory Results - last 24 hr 10/21/23 10/22/23 13:05 05:55 WBC 9.78 RBC 2.98 L Hgb 9.9 L Hct 31.5 L MCV 106 H MCH 33 MCHC 31 L RDW Coeff of Annabelle 15.7 H Plt Count 225 Neut % (Auto) 75.0 H Lymph % (Auto) 10.6 L Mitchell % (Auto) 11.3 H Eos % (Auto) 2.7 Baso % (Auto) 0.2 Neut # (Auto) 7.30 H Lymph # (Auto) 1.00 Mitchell # (Auto) 1.10 H Eos # (Auto) 0.26 Baso # (Auto) 0.02 Abs Immat Gran (auto) 0.02 Imm/Tot Granulo (auto) 0.2 VBG pH 7.432 H VBG pCO2 47 VBG pO2 66.6 H VBG HCO3 31 H Sodium 139 Potassium 3.6 Chloride 102 Carbon Dioxide 30 Anion Gap 7 BUN 57 H Creatinine 2.0 H Estimated Creat Clear 28.76 Estimated GFR 32 Glucose 99 Lactate 0.7 Calcium 8.8 Magnesium 2.3 Troponin I 0.08 H* 0.06 H* C-Reactive Protein 15.1 H
--- NOTE | 2023-10-22 13:48 | P.IMCN_ITS ---
Date of Consult Consult date: 10/22/23 Requesting Physician: Hospitalist Primary Care Provider: Juan José Licona MD Consult Narrative Reason for consult: known wound services patient Narrative: Haris Villa is a 83 year old male known to Wound Services, who was admitted to hospital after presenting to the emergency room on 10/21/23 with increasing weakness and redness in his left lower extremity wound. In ER patient was noted to have objective findings consistent with early sepsis. Does have positive blood cultures these are pending. Wound culture completed by General surgery. IV antibiotics being managed by hospitalist team. General surgery completed bedside debridement of left lower extremity wound yesterday. General surgery is present at the bedside during today's wound services evaluation with patient. LLE distal laceration/ trauma etiology wound noted to be improved. Wound Services wound care dressing and BLE edema recommendation being requested. patient is currently afebrile, sitting in bedside recline. Patient does not have his legs elevated when we entered the room. PMHx: diabetes with diabetic neuropathy and diabetic nephropathy, coronary artery disease, hypertension, hyperlipidemia, atrial fibrillation anticoagulated on Eliquis, BPH, chronic anemia, hypothyroidism on thyroid supplementation and history of ICD placement. Wound significant recent history of of fall occurring on 10/08/23 of this year when he was walking on a porch and subsequently slipped and fell in the snow. Fall resulted in laceration of his LLE, laceration was repaired in the ER same day injury occurred. He returned to the Wound Center for follow-up of this wound on 10/19/2023, he was seen by one of my colleagues. Per review of documentation patient was vitally stable, non-toxic and there were no concerns for cellulitis at that time. He has known venous insufficiency with chronic lower extremity edema. Patient was previously prescribed velcro compression wraps that he was to wear daily. He reports he has worn them occasionally, but does endorse not consistent daily use as recommended, d/t LLE anterior laceration location. There is also RLE open venous ulcerations, per patient report his right lower extremity wounds have been open since the start of the year, prior to his fall or left lower extremity laceration. There is also superficial wound to his left knee. ABIs WNL at previous wound center evaluations. Review of Systems Status of ROS: Reports: 6 or more systems reviewed and unremarkable except as noted in History and below PFSH PFSH Medical History Risk for falls ?Z91.81 - History of falling (ICD-10) Venous stasis ulcer ?I83.009 - Varicose veins of unspecified lower extremity with ulcer of unspecified site (ICD-10) ?L97.909 - Non-pressure chronic ulcer of unspecified part of unspecified lower leg with unspecified severity (ICD-10) Cellulitis of lower extremity ?L03.119 - Cellulitis of unspecified part of limb (ICD-10) Canales's esophagus with dysplasia, unspecified ?K22.719 - Canales's esophagus with dysplasia, unspecified (ICD-10) Prostate mass ?N42.89 - Other specified disorders of prostate (ICD-10) Melanoma of eye ?C69.90 - Malignant neoplasm of unspecified site of unspecified eye (ICD-10) History of ventricular tachycardia ?Z86.79 - Personal history of other diseases of the circulatory system (ICD- 10) Health care directive on file (11/29/21) ?Z78.9 - Other specified health status (ICD-10) Surgical History History of hip surgery (11/10/21) ?Z98.890 - Other specified postprocedural states (ICD-10) Status post implantation of automatic cardioverter/defibrillator (AICD) ?Z95.810 - Presence of automatic (implantable) cardiac defibrillator (ICD-10) 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) ?Z96.641 - Presence of right artificial hip joint (ICD-10) 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 Pt reports stair lift at home which has really helped In the past 12 months, utilities in danger of being shut off: no In past 12 months, lack of transportation kept you from medical appts, meetings, work, or getting things needed for daily living: no In the past 12 mos, have been you worried that your food would run out before you had money to buy more?: never true In the past 12 mos, the food you bought just didn't last and you didn't have money to buy more?: never true Highest level of school completed/degree received: Associate degree: occupati onal, technical, vocational program Smoking Status: Never smoker How often do you have a drink containing alcohol: never How often do you have six or more drinks on one occasion: Never AUDIT-C Alcohol total score: 0 Non-prescribed substance use: denies use Caffeine: No How often does anyone, including family, friends and others, physically hurt you : never How often does anyone, including family, friends and others, insult or talk down to you: never How often does anyone, including family, friends and others, threaten you with harm: never How often does anyone, including family, friends and others, scream or curse at you: never Little interest or pleasure in doing things: not at all Feeling down, depressed, or hopeless: not at all service: No Meds Home Medications and Allergies Home Medications Medication Instructions Recorded Confirmed Type acetaminophen 500 mg tablet 1,000 mg PO TID PRN 04/11/22 10/21/23 History amiodarone 200 mg tablet 200 mg PO DAILY 04/11/22 10/21/23 History furosemide 40 mg tablet 40 mg PO DAILY 04/11/22 10/21/23 History loratadine 10 mg tablet (Allergy 10 mg PO DAILY PRN 04/11/22 10/21/23 History Relief (loratadine)) nitroglycerin 0.4 mg sublingual 0.4 mg sublingual ONCE PRN 04/11/22 10/21/23 History tablet apixaban 2.5 mg tablet (Eliquis) 1.25 mg PO BID 10/12/23 10/21/23 History insulin glargine 100 unit/mL (3 14 unit subcut DAILY 10/12/23 10/21/23 History mL) subcutaneous pen (Lantus Solostar U-100 Insulin) metoprolol succinate 50 mg 50 mg PO DAILY 10/12/23 10/21/23 History tablet,extended release 24 hr atorvastatin 20 mg tablet 20 mg PO HS 10/21/23 10/21/23 History fluticasone propionate 50 2 spray intranasal DAILY 10/21/23 10/21/23 History mcg/actuation nasal spray,suspension levothyroxine 50 mcg tablet 50 mcg PO DAILY 10/21/23 10/21/23 History Allergies Allergy/AdvReac Type Severity Reaction Status Date / Time adhesive Allergy Unknown Rash Verified 10/12/23 08:33 rosuvastatin Allergy Unknown muscle Verified 10/12/23 08:33 soreness/weakness Exam Narrative: Exam Narrative: General: NAD, Alert. Sitting in bedside recliner. Eyes: wearing glasses, conjunctivae clear w/o drainage Pulmonary: Speaking in full sentences, symmetrical rise BLE: generalized 2+ pitting edema, left greater than right. erythema improving. Wounds: * Left knee: superficial. partial thickness. stable, Measuring 2x2x0.1cm * Left pre-tibial: full thickness without exposed structures. Stable. Measuring 5X4X0.4cm. per General surgery wound improved no need for further debridement. * Right anterior pre-tibial: full thickness without exposed structures. stable. measuring 2.3x2.8x0.1cm * Right distal medial pretibial: full thickness without exposed structures. st able. Measuring 0.6x0.6x0.1cm CMS: pedal pulses palpable, feet temp WNL, cap refill less than 5 seconds. Psych: normal affect, makes good eye contact Const: Vital Signs, click to edit/add: Vital Signs - 24 hr 10/21/23 15:00 10/21/23 15:00 10/21/23 19:27 Temperature 97.4 F L 97.4 F L Pulse Rate 60 Pulse Rate [Left P ulse Oximeter] 62 66 Respiratory Rate 22 20 Blood Pressure [Ri ght Arm] 95/54 L 93/50 L Pulse Oximetry 96 91 Oxygen Delivery Me thod Nasal Cannula Nasal Cannula Oxygen Flow Rate 1.5 1.5 10/21/23 22:47 10/21/23 22:47 10/21/23 23:00 Temperature 98.3 F Pulse Rate Pulse Rate [Left P ulse Oximeter] 58 L 58 L Respiratory Rate 18 18 18 Blood Pressure [Ri ght Arm] 107/61 Pulse Oximetry 93 93 Oxygen Delivery Me thod Nasal Cannula Nasal Cannula Oxygen Flow Rate 1.5 1.5 10/21/23 23:01 10/22/23 02:43 10/22/23 07:43 Temperature 97.4 F L 97.3 F L Pulse Rate 58 L Pulse Rate [Left P ulse Oximeter] 68 68 Respiratory Rate 20 20 Blood Pressure [Ri ght Arm] 112/62 103/51 L Pulse Oximetry 94 92 Oxygen Delivery Me thod Nasal Cannula Nasal Cannula Oxygen Flow Rate 1.5 1.5 10/22/23 07:43 10/22/23 10:34 10/22/23 11:20 Temperature 97.3 F L Pulse Rate 62 Pulse Rate [Left P ulse Oximeter] 67 Respiratory Rate 20 18 Blood Pressure [Ri ght Arm] 102/55 L Pulse Oximetry 92 92 Oxygen Delivery Me thod Nasal Cannula Nasal Cannula Oxygen Flow Rate 1.5 1 Documenting provider has reviewed patient's vital signs: yes Labs Labs: Short CBC 10/22/23 Range/Units 05:55 WBC 9.78 (4.50-11.00) K/uL Hgb 9.9 L (13.5-17.5) gm/dL Hct 31.5 L (37.0-53.0) % Plt Count 225 (140-440) K/uL BMP 10/22/23 05:55 Sodium 139 Potassium 3.6 Chloride 102 Carbon Dioxide 30 BUN 57 H Creatinine 2.0 H Glucose 99 Calcium 8.8 Cardiac Enzymes 10/22/23 Range/Units 05:55 Troponin I 0.06 H* (0.01-0.04) ng/mL Assessment and Plan Assessment and plan (1) Venous stasis ulcer: Problem comment: Right lower extremity ulcers may be traumatic or venous stasis with some associated cellulitis. Status: Acute (2) Cellulitis: Problem comment: Moderately ill with profound weakness, fever, elevated lactate, elevated white blood count, low blood pressure. Associated with left leg laceration as well as venous stasis skin changes on both legs. Clinically improving. Continue Zosyn through October 27 Status: Acute (3) Diabetic neuropathy: Status: Acute (4) Lymphedema: Status: Acute (5) Venous insufficiency (chronic) (peripheral): Status: Acute Plan Nursing, Lindsay, SIENNA updated on wound care orders. General surgery in agreement with wound care orders as wound has improved. Hospitalist, Dr. Degroot updated. Wounds cleansed and dressings applied. 2-layer compression wraps applied. Patient advised to elevate legs when sitting in recliner. follow-up wound center appt. 10/26/23 @ 8:15 AM Wound Care Dressing Orders: * BLE open wounds: Cleanse with vashe, or unit approved wound cleanser. Cover wounds with xeroform. Okay to apply medihoney to woundbed, under xeroform if wound becomes too dry. Apply 2-layer coban wrap. * Left knee wound: apply xeroform Mepilex cover dressing. Every other day and PRN wound care dressing changes. Next dressing to occur 10/24/23.
[2023-10-22] MEDS: FUROSEMIDE 10 MG/ML inj 20 MG IVP (14:31)
--- NOTE | 2023-10-22 16:25 | PC.SOCIAL ---
Discharge planning- Per MD, pt will be here for a few more days. Per therapy, recommendation is SNF for short-term rehab. Pt's informed therapy that she did not think she could meet his needs at home, pt is requiring 2 to assist. Met with pt in room to discuss discharge plans. Discussed therapy recommendation for rehab and pt states he would like to go to [facility] as he has been to [facility] in the past for a rehab stay and liked the facility. Pt lives in [place] with his . Second choice would be [facility] in [place], but pt would really like to stay in [facility]. Phone call to pt's Prachi and discussed discharge plans and this worker's conversation with pt. Pt's is in agreement that she would like this worker to check with [facility]. This worker will keep pt and pt's updated. Informed pt's that pt will be at the hospital a few more days as he is not medically cleared to discharge yet. E-mail to Laura Perez at [facility] to check on bed availability. Laura informs that they have a male bed available. Secure e-mailed referral to Laura at [facility]. Social work will follow up as needed.
--- NOTE | 2023-10-22 18:01 | PC.NURSE ---
Pt alert and oriented. Pt had no complaints of pain. Pt up to chair. Pt assist of two with gait belt and walker. Pt?s dressings removed by Hospitalist- Wound care done by wound care SWIMMING POOL INSTALLER and Dr. Pillai.Pt's dressing to be changed Q48 per wound care SW[employer]MING PO[employer] INST[employer]ER. Pt?s redness is contained within the outline. Pt?s leg still warm to the touch.?
--- NOTE | 2023-10-22 19:14 | PC.NURSE ---
Pt had soft blood pressures and low pulse; hospitalist consulted about AM medication administration and RN instructed to give Pt all am medications.
[2023-10-23 03:00] VITALS: BP 117/77; PULSE 67; RESP 18; TEMP 36.1; O2SAT 95
[2023-10-23] MEDS: PIPERACILLIN/TAZOBACTAM 2.25 GM in 0.9 % SODIUM CHLORIDE Mini-bag 100 ML IVPB ×4 (03:05→20:16)
[2023-10-23] MEDS: SODIUM CHLORIDE 0.9 % (FLUSH) 10 ML SYRINGE 5 ML IVF ×3 (03:05→20:16)
--- NOTE | 2023-10-23 05:55 | PC.NURSE ---
Shift note: Pt is doing well with A1, walker and gb. Oriented x3. Pt had frequency of micturition and had 1 large BM tonight. Dressing to the legs intaclea==
--- NOTE | 2023-10-23 05:58 | PC.NURSE ---
Shft not: Pt alert and oriented is doing well with A1, walker and GB. Dressing to the legs are clean and dry. Pt had frequency of micturition and 1 large BM.
[2023-10-23 06:36] LABS: Basophils Absolute Auto 0.02 K/uL (0.00-0.30); Basophils Percent Auto 0.3 % (0.0-3.0); Eosinophils Absolute Auto 0.42 K/uL (0.00-0.50); Eosinophils Percent Auto 5.5 % (0.0-7.0); Hematocrit 32.7 % (37.0-53.0); Immature Granulocytes Abs Auto 0.02 K/uL (0.00-0.30); Immature Granulocytes Pct Auto 0.3 %; Mean Corpuscular HGB Conc 31 gm/dL (32-36); Mean Corpuscular Hemoglobin 32 pg (26-34); Mean Corpuscular Volume 106 fL (80-100); Monocytes Percent Auto 11.4 % (0.0-11.0); Neutrophils Absolute Auto 5.26 K/uL (1.7-7.0); Neutrophils Percent Auto 68.5 % (42.0-72.0); Platelet Count* 233 K/uL (140-440); RDW Coefficient of Variation % 15.4 % (11.5-15.5); Red Blood Count 3.09 m/uL (4.30-5.90); White Blood Count* 7.66 K/uL (4.50-11.00)
[2023-10-23] MEDS: LEVOTHYROXINE 50 MCG TABLET PO (06:44)
[2023-10-23 06:55] LABS: Slide Review Reflex No
[2023-10-23 06:57] LABS: Chloride* 102 mmol/L (96-114); Potassium* 3.4 mmol/L (3.6-5.1); Sodium* 140 mmol/L (135-149)
[2023-10-23 07:00] VITALS: PULSE 69
[2023-10-23 07:00] LABS: Creatinine* 2.1 mg/dL (0.5-1.5); Est. Creatinine Clearance* 27.39; Estimated Glomerular Filt Rate 30 ml/min
[2023-10-23 07:01] LABS: Anion Gap 8 mEq/L (7-15); Blood Urea Nitrogen* 58 mg/dL (7-30); Calcium* 8.7 mg/dL (8.4-10.6); Carbon Dioxide* 30 mmol/L (20-32); Glucose* 112 mg/dL (60-115)
[2023-10-23 07:30] VITALS: BP 100/64; PULSE 60; RESP 20; TEMP 36.6; O2SAT 90
[2023-10-23] MEDS: FUROSEMIDE 10 MG/ML inj 20 MG IVP (09:16)
[2023-10-23] MEDS: GLIMEPIRIDE 1 MG TABLET 2 MG PO (09:17)
[2023-10-23] MEDS: POTASSIUM BICARB 25 MEQ EFFERVESCENT TAB 50 MEQ PO (09:17)
[2023-10-23] MEDS: TAMSULOSIN HCL 0.4 MG CAPSULE PO (09:18)
[2023-10-23] MEDS: FUROSEMIDE 40 MG TABLET PO (09:18)
[2023-10-23] MEDS: AMIODARONE 200 MG TABLET PO ×2 (09:25→09:26)
[2023-10-23] MEDS: FLUTICASONE PROPIONATE NASAL 2 SPRAY NOSTRIL-B (09:25)
[2023-10-23] MEDS: APIXABAN 5 MG TABLET 1.25 MG PO ×2 (09:27→20:14)
[2023-10-23] MEDS: FENOFIBRATE 145 MG TABLET PO (09:42)
[2023-10-23] MEDS: METOPROLOL SUCCINATE (XL) 50 MG TAB PO (09:51)
[2023-10-23] MEDS: OMEPRAZOLE 20 MG CAPSULE DR PO ×2 (09:52→20:14)
[2023-10-23 13:20] VITALS: BP 106/66; PULSE 68; RESP 20; TEMP 36.7; O2SAT 2
[2023-10-23 15:00] VITALS: BP 113/53; PULSE 63; PULSE 66; PULSE 68; RESP 20; TEMP 36.8; O2SAT 91; O2SAT 94
--- NOTE | 2023-10-23 15:29 | PC.SOCIAL ---
Discharge planning- Received a phone call from Laura Perez in admissions at [facility]. Laura informs that Nursing is asking for updated therapy notes from today and is questioning on whether pt will be on oral or IV antibiotics. Per MD, it is unknown which antibiotic pt will be prescribed. Secure e-mailed Laura therapy notes and provided update on antibiotics. This worker will keep [facility] updated.
--- NOTE | 2023-10-23 16:15 | P.IMPN_ITS ---
Progress Note: A&P Assessment and plan (1) Bacteremia: Problem details: Blood cultures growing Gram-positive cocci and Gram-negative alfred. Id and sensitivity pending. Continue vancomycin and Zosyn Status: Acute (2) Cellulitis: Problem details: Moderately ill with profound weakness, fever, elevated lactate, elevated white blood count, low blood pressure. Associated with left leg laceration as well as venous stasis skin changes on both legs. Broad-spectrum coverage pending cultures. Vancomycin, Zosyn. Status: Acute (3) Venous stasis ulcer: Problem details: Right lower extremity ulcers may be traumatic or venous stasis with some associated cellulitis Status: Acute (4) Diabetic neuropathy: Status: Acute (5) Laceration of leg: Problem details: Wound care per surgery and then outpatient wound clinic Status: Inactive (6) Arteriosclerotic cardiovascular disease: Problem details: s/p [id number], 2011, s/p CABG 2011. Now elevated troponin in the context of acute dyspnea and acute illness. Monitor for symptoms trend troponin Status: Acute (7) Elevated troponin: Problem details: Trend troponin, monitor symptoms. Status: Acute (8) Risk for falls: Problem details: PT and OT to evaluate Status: Acute (9) Weakness: Problem details: PT and OT to evaluate Status: Acute (10) Hypoxic respiratory failure: Problem details: Possibly due to heart failure versus pneumonia. Caution with diuresis. Antibiotics should appropriately treat pneumonia Status: Acute (11) Pneumonia: Problem details: Chest x-ray suspicious for pneumonia, hypoxia and sepsis. Vancomycin and Zosyn pending clinical course Status: Acute (12) Congestive heart failure: Problem details: May be contributing to current hypoxia. Continue home diuresis cautiously due to low blood pressure Status: Acute (13) Hypertension: Problem details: Resume home medications. 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 Continue that for now especially with antiplatelet therapy and risk for bleeding. Status: Acute (16) Hyperlipidemia: Status: Acute (17) CKD (chronic kidney disease) stage 3, GFR 30-59 ml/min: Status: Acute Plan Continue in hospital for IV antibiotics pending clinical improvement and cultures. Time Spent With Patient Total time spent: Total time spent today is 40 minutes, 30 minutes in coordination of care discussing with patient other providers ongoing management of cellulitis, bacteremia, disability Subjective Date Seen: 10/23/23 Interval history: Haris Villa is a 83 year old male who presented to the emergency room with increasing weakness and redness in his left lower extremity wound. Haris has a past medical history of diabetes with diabetic neuropathy and diabetic nephropathy, coronary artery disease, hypertension, hyperlipidemia, atrial fibrillation anticoagulated on Eliquis, BPH, chronic anemia, hypothyroidism on thyroid supplementation and history of ICD placement. Haris has a significant recent history of suffering a fall on 10/08 of this year when he was walking on a porch and subsequently slipped and fell in the snow. He unfortunately suffered a laceration of his left lower extremity and was seen in the emergency room at that time. The laceration was sutured and he was sent to the wound clinic for follow-up as he does have chronic right lower extremity wounds that have been seen in the wound clinic previously. Unfortunately, he started noticing some drainage from the left lower extremity wound as well as symptoms of being chilled and decreased appetite. He also noticed some increasing erythema and swelling around the wound site and he presented to the emergency room with the symptoms along with worsening weakness and inability to do his ADLs. In the emergency room he was evaluated and found to have an infected wound with surroun ding cellulitis. He was given 1 g of IV Rocephin and is currently being admitted to the medical service for ongoing evaluation and treatment. At the time I am seeing Haris, he does confirm the above history. He states that with his weakness he did fall out of bed earlier this morning and was unable to get up and that is why he presented to the emergency room. He otherwise denies any other acute complaints or problems at the time I am seeing him. Patient reports that he is normally able to ambulate but became quite weak recently. He reports no other symptoms of illness, cold, sore throat, cough, shortness of breath, chest pain. He is on oxygen at this time. He reports currently is breathing is comfortable. He does not normally have oxygen and is not known to have chronic lung disease. He does have a history of congestive heart failure. He also has a history of coronary artery disease and atrial flutter. He has an ICD that was interrogated last month and found to be working well with good battery life. He has a history of atrial flutter and is on half normal renal dose anticoagulation with apixaban 1.25 mg twice daily. He does have a history of GI bleeding Patient thinks he slowly improving. Still very weak. Very dyspneic with activity. Struggling to walk. Not aware of any fever. Still requiring supplemental oxygen. Exam Narrative: Exam Narrative: He is alert and appears in no obvious distress. Respirations are clear to auscultation with a few basilar crackles. Cardiovascular: S1, S2, regular rate and rhythm. Abdomen is soft without tenderness or mass. Extremities without significant edema. Leg wrapping sore left in place today per direction of wound clinic Const: Vital Signs, click to edit/add: Vital Signs - 24 hr 10/22/23 19:00 10/22/23 22:28 10/22/23 23:00 Temperature 98.2 F Pulse Rate 71 Pulse Rate [Left P ulse Oximeter] 65 67 Respiratory Rate 18 Blood Pressure [Ri t Arm] 121/55 L Pulse Oximetry 97 Oxygen Delivery Me thod Nasal Cannula Oxygen Flow Rate 1 10/22/23 23:00 10/22/23 23:00 10/23/23 03:00 Temperature 96.9 F L 97 F L Pulse Rate Pulse Rate [Left P ulse Oximeter] 67 67 Respiratory Rate 18 18 18 Blood Pressure [Ri t Arm] 105/58 L 117/77 Pulse Oximetry 99 99 95 Oxygen Delivery Me thod Nasal Cannula Nasal Cannula Nasal Cannula Oxygen Flow Rate 1 1 1 Labs Labs: Laboratory Results - last 24 hr 10/23/23 05:47 WBC 7.66 RBC 3.09 L Hgb 10.0 L Hct 32.7 L MCV 106 H MCH 32 MCHC 31 L RDW Coeff of Annabelle 15.4 Plt Count 233 Neut % (Auto) 68.5 Lymph % (Auto) 14.0 L [place] % (Auto) 11.4 H Eos % (Auto) 5.5 Baso % (Auto) 0.3 Neut # (Auto) 5.26 Lymph # (Auto) 1.10 [place] # (Auto) 0.90 Eos # (Auto) 0.42 Baso # (Auto) 0.02 Abs Immat Gran (auto) 0.02 Imm/Tot Granulo (auto) 0.3 Sodium 140 Potassium 3.4 L Chloride 102 Carbon Dioxide 30 Anion Gap 8 BUN 58 H Creatinine 2.1 H Estimated Creat Clear 27.39 Estimated GFR 30 Glucose 112 Calcium 8.7 C-Reactive Protein 8.0 H
--- NOTE | 2023-10-23 16:28 | PC.NURSE ---
Please see eMar for meds provided on day shift. Eval by primary RN, Dr. Degroot, PT and OT. Pt continues to be dyspneic with activity. 90-92% at rest on 1L/nc. New adhesive pulse oximetry replacedon finger. Pt voiding frequently d/to IV Lasix and po lasix on day shift. Tele indicates atrial fibrillation with BBB and ventricular demand pacer. Report to Amy EL who will ask family to bring in CPAP and she will perform pt's dressing change to BLE.
[2023-10-23 19:00] VITALS: BP 108/78; PULSE 65; RESP 20; TEMP 36.6; O2SAT 94
[2023-10-23] MEDS: INSULIN ASPART 100 UNIT/ML SUBCUT (20:34)
--- NOTE | 2023-10-23 23:01 | PC.NURSE ---
Dressing change performed to patient legs bilaterally as ordered. Continues on IV antibiotics and tolerating this well. This evening patient verbalizes an increase in SOB. At this times the patient's VS were checked and HR was found to be in the 60's. Sating 89/90% on RA. Pt placed on oxygen 1 L NC for comfort. Pt verbalized that his daughter will be bringing in his home CPAP tomorrow.
[2023-10-24] VITALS (13 sets, daily range): BP systolic 92–111; BP diastolic 51–77; PULSE 60–70; RESP 16–22; TEMP 36.6–37.3; O2SAT 89–93
[2023-10-24] MEDS: PIPERACILLIN/TAZOBACTAM 2.25 GM in 0.9 % SODIUM CHLORIDE Mini-bag 100 ML IVPB ×4 (02:36→20:36)
[2023-10-24] MEDS: SODIUM CHLORIDE 0.9 % (FLUSH) 10 ML SYRINGE 5 ML IVF ×2 (02:37→09:43)
[2023-10-24] MEDS: LEVOTHYROXINE 50 MCG TABLET PO (06:11)
[2023-10-24 06:25] LABS: Basophils Percent Auto 0.4 % (0.0-3.0); Eosinophils Percent Auto 6.4 % (0.0-7.0); Hematocrit 32.4 % (37.0-53.0); Hemoglobin* 10.1 gm/dL (13.5-17.5); Lymphocytes Percent Auto 16.4 % (20-44); Mean Corpuscular HGB Conc 31 gm/dL (32-36); Mean Corpuscular Hemoglobin 33 pg (26-34); Mean Corpuscular Volume 105 fL (80-100); Monocytes Percent Auto 12.3 % (0.0-11.0); Neutrophils Percent Auto 63.5 % (42.0-72.0); Platelet Count* 255 K/uL (140-440); RDW Coefficient of Variation % 15.2 % (11.5-15.5); White Blood Count* 6.77 K/uL (4.50-11.00)
[2023-10-24 06:26] LABS: Basophils Absolute Auto 0.03 K/uL (0.00-0.30); Eosinophils Absolute Auto 0.43 K/uL (0.00-0.50); Immature Granulocytes Abs Auto 0.07 K/uL (0.00-0.30)
--- NOTE | 2023-10-24 06:33 | PC.NURSE ---
Pt alert and oriented x3. Afebrile. Pt denies pain, chest pain, and N/V. SOB is noted with exertion. Pt's left knee redness did not exceed outline. Pt's right calf and right corbett dressing are CDI. and left knee and left corbett dressings are CDI. Pt is up A1 with walker and gait belt. Pt was weaned down to 0.5L O2 overnight to maintain stats of 88% and higher. Pt slept intermittently throughout night.
[2023-10-24 06:37] LABS: Slide Review Reflex No
[2023-10-24 06:41] LABS: Chloride* 99 mmol/L (96-114); Potassium* 3.8 mmol/L (3.6-5.1); Sodium* 139 mmol/L (135-149)
[2023-10-24 06:43] LABS: Creatinine* 2.1 mg/dL (0.5-1.5); Est. Creatinine Clearance* 27.39; Estimated Glomerular Filt Rate 30 ml/min
[2023-10-24 06:44] LABS: Anion Gap 7 mEq/L (7-15); Blood Urea Nitrogen* 60 mg/dL (7-30); Carbon Dioxide* 33 mmol/L (20-32); Glucose* 137 mg/dL (60-115)
[2023-10-24 06:47] LABS: C Reactive Protein* 5.4 mg/dL (0.5-1.0)
[2023-10-24] MEDS: TAMSULOSIN HCL 0.4 MG CAPSULE PO (09:36)
[2023-10-24] MEDS: METOPROLOL SUCCINATE (XL) 50 MG TAB PO (09:36)
[2023-10-24] MEDS: AMIODARONE 200 MG TABLET PO (09:37)
[2023-10-24] MEDS: FENOFIBRATE 145 MG TABLET PO (09:38)
[2023-10-24] MEDS: OMEPRAZOLE 20 MG CAPSULE DR PO ×2 (09:38→20:37)
[2023-10-24] MEDS: APIXABAN 5 MG TABLET 1.25 MG PO ×2 (09:41→20:37)
[2023-10-24] MEDS: GLIMEPIRIDE 1 MG TABLET 2 MG PO (09:42)
[2023-10-24] MEDS: FLUTICASONE PROPIONATE NASAL 2 SPRAY NOSTRIL-B (09:43)
[2023-10-24] MEDS: FUROSEMIDE 40 MG TABLET PO (09:46)
--- NOTE | 2023-10-24 11:04 | NUTR.NU ---
RDN with nutrition follow-up. Patient continues on Regular diet. Current weight 257lb 5oz; height 5ft 11in; BMI is 35.9 kg/m2. Weight has been stable since admit. Meal intakes have been adequate, mainly 75-100% since admit. Patient reports good intakes. Has been trying to include protein sources at every meal. Has received Premier Protein once. RDN informed patient it is scheduled to be offered at 1500 daily, however he can ask for it at any time. Premier protein once daily provides 160 kcals and 30 grams protein. No changes in nutrition interventions at this time. Will continue to monitor.
--- NOTE | 2023-10-24 12:33 | W.PM.INFDCN ---
Consultation Information Consultation Information Date of Consult: 10/24/23 Requesting Physician: Nas Degroot Reason for Consult: sepsis, cellulitis Consultation Statement: This patient recommendation is based on a telemedicine consult request which was completed asynchronously through chart review and information provided by the primary physician. The patient was not seen or examined today. The evaluation is consultative in nature and all patient care and treatment decisions can either be accepted or rejected by the patient's primary hospital-based treating physician using their own independent medical judgment for their patient. [employer] contact information: Please call [facility] call center [phone] HPI - Infectious Disease History of Present Illness History of Present Illness: 83 yo M with history of DM, diabetic nephropathy and neuropathy, CAD s/p CABG, R SELVIN (2021), AICD in place who presented on 10/21 with increasing weakness, and LLE erythema. He fell on 10/08 when walking on the porch and slipped and fell in the snow, suffered a LLE laceration. He was seen in the ED at that time, the laceration was sutured, and he was sent to the wound clinic for follow-up. He then began noticing drainage from the LLE wound and surrounding erythema and swelling, as well as chills, decreased appetite, leading him to present to the hospital. On presentation, pt was afebrile, VSS. Labs showed WBC 16.27, lactate 2.2 CRP 4.6. CXR showed L retrocardiac streaky opacities, may represent atelectasis or infiltrates. Pt denied shortness of breath, but required 2 L O2. He was admitted and started on ceftriaxone for LLE wound with cellulitis, then broadened to vanc, pip-tazo. Surgery performed an I&D of the wound on 10/21, and tissue was sent for culture which grew MSSA. Admission blood cultures grew Pseudomonas in 1/4 bottles, Staph lug and Staph epi in 2/4 bottles. Pt's appears clinically improved, and WBC has downtrended to 6.77. PFSH PFSH Medical History Risk for falls ?Z91.81 - History of falling (ICD-10) Venous stasis ulcer ?I83.009 - Varicose veins of unspecified lower extremity with ulcer of unspecified site (ICD-10) ?L97.909 - Non-pressure chronic ulcer of unspecified part of unspecified lower leg with unspecified severity (ICD-10) Cellulitis of lower extremity ?L03.119 - Cellulitis of unspecified part of limb (ICD-10) Canales's esophagus with dysplasia, unspecified ?K22.719 - Canales's esophagus with dysplasia, unspecified (ICD-10) Prostate mass ?N42.89 - Other specified disorders of prostate (ICD-10) Melanoma of eye ?C69.90 - Malignant neoplasm of unspecified site of unspecified eye (ICD-10) History of ventricular tachycardia ?Z86.79 - Personal history of other diseases of the circulatory system (ICD-10) Health care directive on file (11/29/21) ?Z78.9 - Other specified health status (ICD-10) Surgical History History of hip surgery (11/10/21) ?Z98.890 - Other specified postprocedural states (ICD-10) Status post implantation of automatic cardioverter/defibrillator (AICD) ?Z95.810 - Presence of automatic (implantable) cardiac defibrillator (ICD-10) 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) ?Z96.641 - Presence of right artificial hip joint (ICD-10) 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 Pt reports stair lift at home which has really helped In the past 12 months, utilities in danger of being shut off: no In past 12 months, lack of transportation kept you from medical appts, meetings, work, or getting things needed for daily living: no In the past 12 mos, have been you worried that your food would run out before you had money to buy more?: never true In the past 12 mos, the food you bought just didn't last and you didn't have money to buy more?: never true Highest level of school completed/degree received: Associate degree: occupational, technical, vocational program Smoking Status: Never smoker How often do you have a drink containing alcohol: never How often do you have six or more drinks on one occasion: Never AUDIT-C Alcohol total score: 0 Non-prescribed substance use: denies use Caffeine: No How often does anyone, including family, friends and others, physically hurt you: never How often does anyone, including family, friends and others, insult or talk down to you: never How often does anyone, including family, friends and others, threaten you with harm: never How often does anyone, including family, friends and others, scream or curse at you: never Little interest or pleasure in doing things: not at all Feeling down, depressed, or hopeless: not at all service: No Home Medications and Allergies Home Medications and Allergies Inpatient Medications: Active Medications Generic Name Dose Route Start Last Admin Trade Name Freq PRN Reason Stop Dose Admin Acetaminophen 1,000 mg 10/21/23 04:59 Acetaminophen 500 Mg Tablet PO TID PRN pain or fever Amiodarone HCl 200 mg 10/21/23 09:00 10/24/23 09:37 Amiodarone 200 Mg Tablet PO 200 mg DAILY JD Administration Apixaban 1.25 mg 10/21/23 09:00 10/24/23 09:41 Apixaban 5 Mg Tablet PO 1.25 mg BID JD Administration Fenofibrate 145 mg 10/21/23 09:00 10/24/23 09:38 Fenofibrate 145 Mg Tablet PO 145 mg DAILY JD Administration Fluticasone Propionate 2 spray 10/21/23 09:00 10/24/23 09:43 Fluticasone Propionate Nasal NOSTRIL-B 2 spray DAILY JD Administration Furosemide 40 mg 10/21/23 09:00 10/24/23 09:46 Furosemide 40 Mg Tablet PO 40 mg DAILY JD Administration Glimepiride 2 mg 10/21/23 09:00 10/24/23 09:42 Glimepiride 1 Mg Tablet PO 2 mg DAILY JD Administration Piperacillin Sod/Tazobactam 100 mls @ 200 mls/hr 10/21/23 09:00 10/24/23 10:15 Sod 2.25 gm/ Sodium Chloride IVPB Infused Q6H JD Infusion Vancomycin HCl 1,000 mg/ 260 mls @ 258.75 mls/hr 10/23/23 09:00 10/24/23 10:58 Sodium Chloride IVPB 258 mls/hr Q24H JD Administration Protocol Insulin Aspart 0 unit 10/21/23 07:30 10/24/23 08:00 Insulin Aspart 100 Unit/Ml SUBCUT Not Given ACHS [facility] Protocol Insulin Detemir 14 unit 10/21/23 05:00 10/24/23 09:46 Insulin Detemir (Levemir) 100 Unit/Ml SUBCUT 14 unit DAILY JD Administration Levothyroxine Sodium 50 mcg 10/21/23 06:30 10/24/23 06:11 Levothyroxine 50 Mcg Tablet PO 50 mcg DAILY@0630 JD Administration Metoprolol Succinate 50 mg 10/21/23 09:00 10/24/23 09:36 Metoprolol Succinate (Xl) 50 Mg Tab PO 50 mg DAILY JD Administration Omeprazole 20 mg 10/21/23 09:00 10/24/23 09:38 Omeprazole [address] PO 20 mg BID JD Administration Sodium Chloride 5 ml 10/21/23 04:54 10/24/23 02:37 Sodium Chloride 0.9 % (Flush) 10 Ml Syringe IVF 5 ml .FLUSH PRN Administration Sodium Chloride 5 ml 10/21/23 09:00 10/24/23 09:43 Sodium Chloride 0.9 % (Flush) 10 Ml Syringe IVF 5 ml BID JD Administration Tamsulosin HCl 0.4 mg 10/21/23 09:00 10/24/23 09:36 Tamsulosin Hcl 0.4 Mg Capsule PO 0.4 mg DAILY JD Administration Tramadol HCl 50 - 100 mg 10/21/23 04:54 Tramadol Hcl 50 Mg Tablet PO Q6H PRN Discontinued Medications Generic Name Dose Route Start Last Admin Trade Name Freq PRN Reason Stop Dose Admin Aspirin 162 mg 10/21/23 09:50 10/21/23 10:27 Aspirin 81 Mg Tab.Chew PO 10/21/23 09:51 162 mg ONCE ONE Administration Ceftriaxone Sodium Confirm 10/21/23 03:07 Ceftriaxone 1 Gm Vial Administered 10/21/23 03:08 Dose 1 gm .ROUTE .STK-MED ONE Fluticasone Propionate 2 spray 10/21/23 05:00 10/21/23 10:35 Fluticasone Propionate Nasal NOSTRIL-B Not Given DAILY JD Furosemide 20 mg 10/22/23 14:00 10/22/23 14:31 Furosemide 10 Mg/Ml Inj IVP 10/22/23 14:01 20 mg ONCE ONE Administration Furosemide 20 mg 10/23/23 07:59 10/23/23 09:16 Furosemide 10 Mg/Ml Inj IVP 10/23/23 08:00 20 mg ONCE ONE Administration Sodium Chloride 1,000 mls @ 1,000 mls/hr 10/21/23 01:15 10/21/23 02:40 0.9 % Sodium Chloride 1000 Ml IV 10/21/23 02:14 Infused .Q1H ONE Infusion Ceftriaxone Sodium 1 gm/ 100 mls @ 200 mls/hr 10/21/23 03:03 10/21/23 03:11 Sodium Chloride IVPB 10/21/23 03:04 200 mls/hr ONCE ONE Administration Ceftriaxone Sodium 1 gm/ 100 mls @ 200 mls/hr 10/22/23 06:00 Sodium Chloride IVPB Q24H JD Sodium Chloride 1,000 mls @ 100 mls/hr 10/21/23 05:30 10/21/23 16:35 0.9 % Sodium Chloride 1000 Ml IV Not Given .Q10H JD Vancomycin HCl 2,000 mg/ 520 mls @ 260 mls/hr 10/21/23 09:30 10/21/23 10:24 Sodium Chloride IVPB 10/21/23 11:29 260 mls/hr ONCE ONE Administration Protocol Vancomycin HCl 1,750 mg/ 517.5 mls @ 258.75 mls/hr 10/22/23 09:00 10/22/23 09:40 Sodium Chloride IVPB 258.75 mls/hr Q24H JD Administration Protocol Lidocaine HCl 6 ml 10/21/23 08:47 10/21/23 08:57 Lidocaine Hcl 2 % Jelly (Top) Sterile TOPICAL 10/21/23 08:48 6 ml ONCE ONE Administration Lidocaine HCl 6 ml 10/21/23 08:53 10/21/23 10:35 Lidocaine Hcl 2 % Jelly (Top) Sterile TOPICAL 10/21/23 08:54 Not Given ONCE ONE Potassium Bicarbonate 50 meq 10/21/23 09:08 10/21/23 10:24 Potassium Bicarb 25 Meq Effervescent Tab PO 10/21/23 09:09 50 meq ONCE ONE Administration Potassium Bicarbonate 50 meq 10/22/23 11:07 10/22/23 11:25 Potassium Bicarb 25 Meq Effervescent Tab PO 10/22/23 11:08 50 meq ONCE ONE Administration Potassium Bicarbonate 50 meq 10/23/23 07:59 10/23/23 09:17 Potassium Bicarb 25 Meq Effervescent Tab PO 10/23/23 08:00 50 meq ONCE ONE Administration Sodium Chloride 250 ml 10/21/23 05:30 10/21/23 07:53 0.9 % Sodium Chloride 250 Ml IV Not Given Q24H JD Allergies Allergy/AdvReac Type Severity Reaction Status Date / Time adhesive Allergy Unknown Rash Verified 10/12/23 08:33 rosuvastatin Allergy Unknown muscle Verified 10/12/23 08:33 soreness/weakness Objective - Infectious Disease Objective Vital Signs: Vital Signs - 24 hr 10/23/23 13:20 10/23/23 15:00 10/23/23 15:00 Temperature 98.1 F Pulse Rate Pulse Rate [Left Pulse Oximeter] 68 68 Respiratory Rate 20 20 20 Blood Pressure [Right Arm] 106/66 Pulse Oximetry 2 L 91 Oxygen Delivery Method Nasal Cannula Room Air Oxygen Flow Rate 1 Fraction of Inspired Oxygen 20 10/23/23 15:00 10/23/23 15:00 10/23/23 19:00 Temperature 98.3 F 97.8 F Pulse Rate 63 Pulse Rate [Left Pulse Oximeter] 66 65 Respiratory Rate 20 20 Blood Pressure [Right Arm] 113/53 L 108/78 Pulse Oximetry 94 94 Oxygen Delivery Method Room Air Room Air Oxygen Flow Rate Fraction of Inspired Oxygen 20 20 10/24/23 00:00 10/24/23 00:00 10/24/23 00:00 Temperature Pulse Rate 63 Pulse Rate [Left Pulse Oximeter] 60 Respiratory Rate 20 20 Blood Pressure [Right Arm] Pulse Oximetry 89 Oxygen Delivery Method Room Air Oxygen Flow Rate 1 Fraction of Inspired Oxygen 10/24/23 00:00 10/24/23 02:40 10/24/23 06:54 Temperature 97.8 F 98.1 F Pulse Rate 64 Pulse Rate [Left Pulse Oximeter] 60 63 Respiratory Rate 20 22 Blood Pressure [Right Arm] 109/64 104/61 Pulse Oximetry 89 92 Oxygen Delivery Method Room Air Room Air Oxygen Flow Rate 1 1 Fraction of Inspired Oxygen Narrative: Patient was not seen or examined. Results - Infectious Disease Results Labs: 10/21/23 10:16 Leg Left Wound Culture - Final Staphylococcus aureus 10/21/23 00:30 Blood Blood Culture - Final Staphylococcus epidermidis Staphylococcus lugdunensis 10/23/23 05:47 Blood Blood Culture - Preliminary NO GROWTH AFTER 24 HOURS 10/24/23 05:33 Blood Blood Culture - Pending 10/21/23 01:15 Urine,Clean Catch Urine Culture - Final 10/21/23 00:20 Blood Blood Culture - Preliminary Pseudomonas aeruginosa 10/21/23 10:16 Nares MRSA Screen - Final No MRSA (Methicillin resistant Staph aureus) isolated. Laboratory Tests 10/24/23 10/23/23 10/22/23 Range/Units 05:33 05:47 05:55 WBC 6.77 7.66 9.78 (4.50-11.00) K/uL RBC 3.10 L 3.09 L 2.98 L (4.30-5.90) m/uL Hgb 10.1 L 10.0 L 9.9 L (13.5-17.5) gm/dL Hct 32.4 L 32.7 L 31.5 L (37.0-53.0) % MCV 105 H 106 H 106 H (80-100) fL MCH 33 32 33 (26-34) pg MCHC 31 L 31 L 31 L (32-36) gm/dL RDW Coeff of Annabelle 15.2 15.4 15.7 H (11.5-15.5) % Plt Count 255 233 225 (140-440) K/uL Neut % (Auto) 63.5 68.5 75.0 H (42.0-72.0) % Lymph % (Auto) 16.4 L 14.0 L 10.6 L (20-44) % [place] % (Auto) 12.3 H 11.4 H 11.3 H (0.0-11.0) % Eos % (Auto) 6.4 5.5 2.7 (0.0-7.0) % Baso % (Auto) 0.4 0.3 0.2 (0.0-3.0) % Neut # (Auto) 4.30 5.26 7.30 H (1.7-7.0) K/uL Lymph # (Auto) 1.10 1.10 1.00 (0.90-2.90) K/uL [place] # (Auto) 0.80 0.90 1.10 H (0.00-0.90) K/UL Eos # (Auto) 0.43 0.42 0.26 (0.00-0.50) K/uL Baso # (Auto) 0.03 0.02 0.02 (0.00-0.30) K/uL Abs Immat Gran (auto) 0.07 0.02 0.02 (0.00-0.30) K/uL Imm/Tot Granulo (auto) 1.0 0.3 0.2 % D-Dimer Quant (PE/DVT) (0.00-0.50) ug/ml VBG pH 7.432 H (7.32-7.43) VBG pCO2 47 (40-50) mmHG VBG pO2 66.6 H (25-47) mmHG VBG HCO3 31 H (21-28) mmol/L Sodium 139 140 139 (135-149) mmol/L Potassium 3.8 3.4 L 3.6 (3.6-5.1) mmol/L Chloride 99 102 102 (96-114) mmol/L Carbon Dioxide 33 H 30 30 (20-32) mmol/L Anion Gap 7 8 7 (7-15) mEq/L BUN 60 H 58 H 57 H (7-30) mg/dL Creatinine 2.1 H 2.1 H 2.0 H (0.5-1.5) mg/dL Estimated Creat Clear 27.39 27.39 28.76 Estimated GFR 30 30 32 ml/min Glucose 137 H 112 99 (60-115) mg/dL Lactate 0.7 (0.5-1.9) mmol/L Calcium 9.0 8.7 8.8 (8.4-10.6) mg/dL Magnesium 2.3 (1.5-2.6) mg/dL Total Bilirubin (0.1-1.5) mg/dL Direct Bilirubin (0.0-0.5) mg/dL AST (12-35) U/L ALT (4-50) U/L Alkaline Phosphatase (40-150) U/L Troponin I 0.06 H* (0.01-0.04) ng/mL C-Reactive Protein 5.4 H 8.0 H 15.1 H (0.5-1.0) mg/dL NT-Pro-B Natriuret Pep pg/mL Total Protein (6.0-8.3) g/dL Albumin (3.3-5.0) g/dL Urine Color (Yellow) Urine Appearance (Clear) Urine pH (5.0-8.5) Ur Specific [place] (1.000-1.030) Urine Protein (Negative) Urine Glucose (UA) (Negative) Urine Ketones (Negative) Urine Blood (Negative) Urine Nitrite (Negative) Urine Bilirubin (Negative) Urine Urobilinogen (0.2-1.0) Ur Leukocyte Esterase (Negative) Urine RBC (0-2) Urine WBC (0-5) Ur Squamous Epith Cells (None-Few) Urine Bacteria (None) SARS-CoV-2 (PCR) (Negative) Influenza Type A (PCR) (Negative) Influenza Type B (PCR) (Negative) RSV (PCR) (Negative) Lab Acknowledgement POC Troponin I (0.01-0.04) ng/ml 10/21/23 10/21/23 10/21/23 Range/Units 13:05 10:13 09:14 WBC (4.50-11.00) K/uL RBC (4.30-5.90) m/uL Hgb (13.5-17.5) gm/dL Hct (37.0-53.0) % MCV (80-100) fL MCH (26-34) pg MCHC (32-36) gm/dL RDW Coeff of Annabelle (11.5-15.5) % Plt Count (140-440) K/uL Neut % (Auto) (42.0-72.0) % Lymph % (Auto) (20-44) % [place] % (Auto) (0.0-11.0) % Eos % (Auto) (0.0-7.0) % Baso % (Auto) (0.0-3.0) % Neut # (Auto) (1.7-7.0) K/uL Lymph # (Auto) (0.90-2.90) K/uL [place] # (Auto) (0.00-0.90) K/UL Eos # (Auto) (0.00-0.50) K/uL Baso # (Auto) (0.00-0.30) K/uL Abs Immat Gran (auto) (0.00-0.30) K/uL Imm/Tot Granulo (auto) % D-Dimer Quant (PE/DVT) (0.00-0.50) ug/ml VBG pH (7.32-7.43) VBG pCO2 (40-50) mmHG VBG pO2 (25-47) mmHG VBG HCO3 (21-28) mmol/L Sodium (135-149) mmol/L Potassium (3.6-5.1) mmol/L Chloride (96-114) mmol/L Carbon Dioxide (20-32) mmol/L Anion Gap (7-15) mEq/L BUN (7-30) mg/dL Creatinine (0.5-1.5) mg/dL Estimated Creat Clear Estimated GFR ml/min Glucose (60-115) mg/dL Lactate (0.5-1.9) mmol/L Calcium (8.4-10.6) mg/dL Magnesium (1.5-2.6) mg/dL Total Bilirubin (0.1-1.5) mg/dL Direct Bilirubin (0.0-0.5) mg/dL AST (12-35) U/L ALT (4-50) U/L Alkaline Phosphatase (40-150) U/L Troponin I 0.08 H* (0.01-0.04) ng/mL C-Reactive Protein (0.5-1.0) mg/dL NT-Pro-B Natriuret Pep pg/mL Total Protein (6.0-8.3) g/dL Albumin (3.3-5.0) g/dL Urine Color (Yellow) Urine Appearance (Clear) Urine pH (5.0-8.5) Ur Specific [place] (1.000-1.030) Urine Protein (Negative) Urine Glucose (UA) (Negative) Urine Ketones (Negative) Urine Blood (Negative) Urine Nitrite (Negative) Urine Bilirubin (Negative) Urine Urobilinogen (0.2-1.0) Ur Leukocyte Esterase (Negative) Urine RBC (0-2) Urine WBC (0-5) Ur Squamous Epith Cells (None-Few) Urine Bacteria (None) SARS-CoV-2 (PCR) (Negative) Influenza Type A (PCR) (Negative) Influenza Type B (PCR) (Negative) RSV (PCR) (Negative) Lab Acknowledgement Test Added Test Added POC Troponin I (0.01-0.04) ng/ml 10/21/23 10/21/23 10/21/23 Range/Units 07:06 01:15 00:37 WBC 14.54 H (4.50-11.00) K/uL RBC 3.08 L (4.30-5.90) m/uL Hgb 10.2 L (13.5-17.5) gm/dL Hct 32.2 L (37.0-53.0) % MCV 105 H (80-100) fL MCH 33 (26-34) pg MCHC 32 (32-36) gm/dL RDW Coeff of Annabelle 15.5 (11.5-15.5) % Plt Count 255 (140-440) K/uL Neut % (Auto) 88.4 H (42.0-72.0) % Lymph % (Auto) 5.4 L (20-44) % [place] % (Auto) 5.8 (0.0-11.0) % Eos % (Auto) 0.1 (0.0-7.0) % Baso % (Auto) 0.1 (0.0-3.0) % Neut # (Auto) 12.90 H (1.7-7.0) K/uL Lymph # (Auto) 0.80 L (0.90-2.90) K/uL [place] # (Auto) 0.80 (0.00-0.90) K/UL Eos # (Auto) 0.00 (0.00-0.50) K/uL Baso # (Auto) 0.00 (0.00-0.30) K/uL Abs Immat Gran (auto) 0.00 (0.00-0.30) K/uL Imm/Tot Granulo (auto) 0.2 % D-Dimer Quant (PE/DVT) 0.60 H (0.00-0.50) ug/ml VBG pH (7.32-7.43) VBG pCO2 (40-50) mmHG VBG pO2 (25-47) mmHG VBG HCO3 (21-28) mmol/L Sodium 141 (135-149) mmol/L Potassium 3.1 L (3.6-5.1) mmol/L Chloride 104 (96-114) mmol/L Carbon Dioxide 28 (20-32) mmol/L Anion Gap 9 (7-15) mEq/L BUN 54 H (7-30) mg/dL Creatinine 2.1 H (0.5-1.5) mg/dL Estimated Creat Clear 27.39 Estimated GFR 30 ml/min Glucose 128 H (60-115) mg/dL Lactate (0.5-1.9) mmol/L Calcium 8.9 (8.4-10.6) mg/dL Magnesium (1.5-2.6) mg/dL Total Bilirubin (0.1-1.5) mg/dL Direct Bilirubin (0.0-0.5) mg/dL AST (12-35) U/L ALT (4-50) U/L Alkaline Phosphatase (40-150) U/L Troponin I 0.07 H* (0.01-0.04) ng/mL C-Reactive Protein (0.5-1.0) mg/dL NT-Pro-B Natriuret Pep 11043 pg/mL Total Protein (6.0-8.3) g/dL Albumin (3.3-5.0) g/dL Urine Color Yellow (Yellow) Urine Appearance Clear (Clear) Urine pH 5.0 (5.0-8.5) Ur Specific [place] 1.015 (1.000-1.030) Urine Protein Negative (Negative) Urine Glucose (UA) Negative (Negative) Urine Ketones Negative (Negative) Urine Blood Negative (Negative) Urine Nitrite Negative (Negative) Urine Bilirubin Negative (Negative) Urine Urobilinogen 0.2 (0.2-1.0) Ur Leukocyte Esterase Negative (Negative) Urine RBC 0-2 (0-2) Urine WBC 0-2 (0-5) Ur Squamous Epith Cells Few (None-Few) Urine Bacteria None (None) SARS-CoV-2 (PCR) (Negative) Influenza Type A (PCR) (Negative) Influenza Type B (PCR) (Negative) RSV (PCR) (Negative) Lab Acknowledgement POC Troponin I 0.07 H (0.01-0.04) ng/ml 10/21/23 10/20/23 Range/Units 00:20 23:55 WBC 16.27 H (4.50-11.00) K/uL RBC 3.49 L (4.30-5.90) m/uL Hgb 11.4 L (13.5-17.5) gm/dL Hct 36.4 L (37.0-53.0) % MCV 104 H (80-100) fL MCH 33 (26-34) pg MCHC 31 L (32-36) gm/dL RDW Coeff of Annabelle 15.6 H (11.5-15.5) % Plt Count 280 (140-440) K/uL Neut % (Auto) 88.0 H (42.0-72.0) % Lymph % (Auto) 3.7 L (20-44) % [place] % (Auto) 6.7 (0.0-11.0) % Eos % (Auto) 0.2 (0.0-7.0) % Baso % (Auto) 0.1 (0.0-3.0) % Neut # (Auto) 14.30 H (1.7-7.0) K/uL Lymph # (Auto) 0.60 L (0.90-2.90) K/uL [place] # (Auto) 1.10 H (0.00-0.90) K/UL Eos # (Auto) 0.00 (0.00-0.50) K/uL Baso # (Auto) 0.00 (0.00-0.30) K/uL Abs Immat Gran (auto) 0.20 (0.00-0.30) K/uL Imm/Tot Granulo (auto) 1.3 % D-Dimer Quant (PE/DVT) (0.00-0.50) ug/ml VBG pH 7.464 H (7.32-7.43) VBG pCO2 42 (40-50) mmHG VBG pO2 28.9 (25-47) mmHG VBG HCO3 30 H (21-28) mmol/L Sodium 141 (135-149) mmol/L Potassium 3.4 L (3.6-5.1) mmol/L Chloride 100 (96-114) mmol/L Carbon Dioxide 28 (20-32) mmol/L Anion Gap 13 (7-15) mEq/L BUN 58 H (7-30) mg/dL Creatinine 2.3 H (0.5-1.5) mg/dL Estimated Creat Clear 25.01 Estimated GFR 27 ml/min Glucose 142 H (60-115) mg/dL Lactate 2.2 H (0.5-1.9) mmol/L Calcium 9.5 (8.4-10.6) mg/dL Magnesium (1.5-2.6) mg/dL Total Bilirubin 1.3 (0.1-1.5) mg/dL Direct Bilirubin 0.6 H (0.0-0.5) mg/dL AST 33 (12-35) U/L ALT 17 (4-50) U/L Alkaline Phosphatase 51 (40-150) U/L Troponin I (0.01-0.04) ng/mL C-Reactive Protein 4.6 H (0.5-1.0) mg/dL NT-Pro-B Natriuret Pep pg/mL Total Protein 7.8 (6.0-8.3) g/dL Albumin 4.4 (3.3-5.0) g/dL Urine Color (Yellow) Urine Appearance (Clear) Urine pH (5.0-8.5) Ur Specific [place] (1.000-1.030) Urine Protein (Negative) Urine Glucose (UA) (Negative) Urine Ketones (Negative) Urine Blood (Negative) Urine Nitrite (Negative) Urine Bilirubin (Negative) Urine Urobilinogen (0.2-1.0) Ur Leukocyte Esterase (Negative) Urine RBC (0-2) Urine WBC (0-5) Ur Squamous Epith Cells (None-Few) Urine Bacteria (None) SARS-CoV-2 (PCR) Negative SARS-CoV-2 (Negative) Influenza Type A (PCR) Negative PCR FLU A (Negative) Influenza Type B (PCR) Negative PCR FLU B (Negative) RSV (PCR) Negative PCR RSV (Negative) Lab Acknowledgement POC Troponin I (0.01-0.04) ng/ml Impression & Recommendations Recommendations Impression & Recommendations: 83 yo M with history of DM, diabetic nephropathy and neuropathy, CAD s/p CABG, R SELVIN (2021), AICD in place who presented on 10/21 with increasing weakness, and LLE wound drainage/erythema, admitted with MSSA LLE wound infection s/p I&D (10/21), Pseudomonas bacteremia, and hypoxia requiring supplemental O2. He fell on 10/08 and sustained a LLE laceration, which was sutured in the ED at that time. He then began noticing drainage from the LLE wound and surrounding erythema and swelling. On presentation, pt was afebrile, requiring 2 L NC. Labs showed WBC 16.27, lactate 2.2 CRP 4.6. CXR showed L retrocardiac streaky opacities, may represent atelectasis or infiltrates. He was admitted and started on vanc and pip-tazo for LLE wound with cellulitis, and possible pneumonia vs CHF. Surgery performed an I&D of the wound on 10/21, and tissue culture grew MSSA. Admission blood cultures grew Pseudomonas in 1/4 bottles, Staph lug and Staph epi in 2/4 bottles. Pt's appears clinically improved, and WBC has downtrended to 6.77. Micro: 10/24 BCx: pending 10/23 BCx: NGTD 10/21 LLE wound cx: MSSA (S cipro, doxy, levo, moxi, tetra, TMP-SMX) 10/21 UCx: NG 10/21 BCx x2: Staph epi and Staph lug in 2/4 bottles (same set), Pseudomonas in 1/4 bottles (franco-sensitive) Abx: Vanc 10/21 - present Pip-tazo 10/21 - present Ceftriaxone 1 g 10/21 Problems: #Pseudomonas bacteremia #MSSA LLE wound infection #Coag neg staph in blood culture: Staph epi and Staph lug #CKD Discussion: Unclear source of Pseudomonas bacteremia. Pt does not have central lines; does have a R SELVIN--but no report of pain at this site. Also has an AICD, but with low grade bacteremia, thus far not growing in repeat blood cultures from 10/23, think this is less likely. Could consider lower extremity wounds as a source, vs pneumonia. As for the Staph lugdunensis bacteremia, Staph lug can cause endocarditis, hardware-associated infections. However, since Staph epi also grew from this blood culture set, this raises concern for contamination. Recommendations: -Monitor R SELVIN for signs of infection -Follow-up repeat blood cultures from 10/23 -Discontinued vancomycin, as pt has MSSA infection, which will be covered by the pip-tazo -Renewed pip-tazo order to cover MSSA and Pseudomonas. -Pt should complete a minimum 7 day course of antibiotics through 10/27 (assuming repeat blood cultures from 10/23 and 10/24 remain NGTD). If he discharges prior to 10/27, on discharge, would avoid fluoroquinolones as pt is on amiodarone, both of which can cause QTc prolongation. QTc 495, 546 on 10/21. Therefore, pt would need an IV antibiotic via midline on discharge. -At SNF, the pip-tazo can be dosed as 2.25 g q6h. If this dosing is too frequent for SNF, he can switch to cefepime 2 g IV q12h -If pt discharges home, for ease of administration, the pip-tazo can be administered as 13.5 g IV continuous infusion over 24 hours daily Please page the [facility] Call Center ([phone]) with further questions.
--- NOTE | 2023-10-24 13:43 | PM.IMPN1 ---
Progress Note: A&P Assessment and plan (1) Bacteremia: Problem details: Blood cultures growing pansensitive Pseudomonas and Staph species that are probably contaminants. Continue Zosyn through October 27. Status: Acute (2) Cellulitis: Problem details: Moderately ill with profound weakness, fever, elevated lactate, elevated white blood count, low blood pressure. Associated with left leg laceration as well as venous stasis skin changes on both legs. Clinically improving. Continue Zosyn through October 27 Status: Acute (3) Venous stasis ulcer: Problem details: Right lower extremity ulcers may be traumatic or venous stasis with some associated cellulitis. Status: Acute (4) Diabetic neuropathy: Status: Acute (5) Laceration of leg: Problem details: Wound care per surgery and then outpatient wound clinic Status: Inactive (6) Arteriosclerotic cardiovascular disease: Problem details: s/p [id number], 2011, s/p CABG 2011. Now elevated troponin in the context of acute dyspnea and acute illness. Monitor for symptoms trend troponin Status: Acute (7) Elevated troponin: Problem details: Troponin stable. No chest pain Status: Acute (8) Risk for falls: Problem details: PT and OT to evaluate Status: Acute (9) Weakness: Problem details: PT and OT to evaluate. Likely needs long-term facility Status: Acute (10) Hypoxic respiratory failure: Problem details: Possibly due to heart failure versus pneumonia. Caution with diuresis. Antibiotics should appropriately treat pneumonia Status: Acute (11) Pneumonia: Problem details: Chest x-ray suspicious for pneumonia, hypoxia and sepsis. Continue Zosyn through October 27 Status: Acute (12) Congestive heart failure: Problem details: May be contributing to current hypoxia. Continue home diuresis cautiously due to low blood pressure. Hypoxia better but developing a contraction alkalosis. Status: Acute (13) Hypertension: Problem details: Resume home medications. 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 Continue that for now especially with antiplatelet therapy and risk for bleeding. Status: Acute (16) Hyperlipidemia: Status: Acute (17) CKD (chronic kidney disease) stage 3, GFR 30-59 ml/min: Status: Acute Plan Continue in hospital for 3 more days of IV antibiotics then look to long-term facility for rehab. Time Spent With Patient Total time spent: Total time spent today is 50 minutes, 40 minutes in coordination of care and discussing with patient and other providers ongoing management of cellulitis/sepsis Subjective Date Seen: 10/24/23 Interval history: Haris Villa is a 83 year old male who presented to the emergency room with increasing weakness and redness in his left lower extremity wound. Haris has a past medical history of diabetes with diabetic neuropathy and diabetic nephropathy, coronary artery disease, hypertension, hyperlipidemia, atrial fibrillation anticoagulated on Eliquis, BPH, chronic anemia, hypothyroidism on thyroid supplementation and history of ICD placement. Haris has a significant recent history of suffering a fall on 10/08 of this year when he was walking on a porch and subsequently slipped and fell in the snow. He unfortunately suffered a laceration of his left lower extremity and was seen in the emergency room at that time. The laceration was sutured and he was sent to the wound clinic for follow-up as he does have chronic right lower extremity wounds that have been seen in the wound clinic previously. Unfortunately, he started noticing some drainage from the left lower extremity wound as well as symptoms of being chilled and decreased appetite. He also noticed some increasing erythema and swelling around the wound site and he presented to the emergency room with the symptoms along with worsening weakness and inability to do his ADLs. In the emergency room he was evaluated and found to have an infected wound with surrounding cellulitis. He was given 1 g of IV Rocephin and is currently being admitted to the medical service for ongoing evaluation and treatment. At the time I am seeing Haris, he does confirm the above history. He states that with his weakness he did fall out of bed earlier this morning and was unable to get up and that is why he presented to the emergency room. He otherwise denies any other acute complaints or problems at the time I am seeing him. Patient reports that he is normally able to ambulate but became quite weak recently. He reports no other symptoms of illness, cold, sore throat, cough, shortness of breath, chest pain. He is on oxygen at this time. He reports currently is breathing is comfortable. He does not normally have oxygen and is not known to have chronic lung disease. He does have a history of congestive heart failure. He also has a history of coronary artery disease and atrial flutter. He has an ICD that was interrogated last month and found to be working well with good battery life. He has a history of atrial flutter and is on half normal renal dose anticoagulation with apixaban 1.25 mg twice daily. He does have a history of GI bleeding Patient thinks he slowly improving. Still very weak. Very dyspneic with activity. Struggling to walk. Not aware of any fever. Still requiring supplemental oxygen. Exam Narrative: Exam Narrative: He is alert and appears in no distress. Respirations with a few basilar crackles but otherwise clear to auscultation. Cardiovascular: S1, S2, regular rate and rhythm. Abdomen is soft without tenderness or mass. Lower extremities with bilateral chronic venous stasis skin changes. No significant edema. Const: Vital Signs, click to edit/add: Vital Signs - 24 hr 10/23/23 15:00 10/23/23 15:00 10/23/23 15:00 Temperature 98.3 F Pulse Rate Pulse Rate [Left P ulse Oximeter] 68 66 Respiratory Rate 20 20 20 Blood Pressure [Ri ght Arm] 113/53 L Pulse Oximetry 91 94 Oxygen Delivery Me thod Room Air Room Air Oxygen Flow Rate Fraction of Inspir ed Oxygen 20 20 10/23/23 15:00 10/23/23 19:00 10/24/23 00:00 Temperature 97.8 F Pulse Rate 63 63 Pulse Rate [Left P ulse Oximeter] 65 Respiratory Rate 20 Blood Pressure [Ri ght Arm] 108/78 Pulse Oximetry 94 Oxygen Delivery Me thod Room Air Oxygen Flow Rate Fraction of Inspir ed Oxygen 20 10/24/23 00:00 10/24/23 00:00 10/24/23 00:00 Temperature 97.8 F Pulse Rate Pulse Rate [Left P ulse Oximeter] 60 60 Respiratory Rate 20 20 20 Blood Pressure [Ri ght Arm] 109/64 Pulse Oximetry 89 89 Oxygen Delivery Me thod Room Air Room Air Oxygen Flow Rate 1 1 Fraction of Inspir ed Oxygen 10/24/23 02:40 10/24/23 06:54 10/24/23 07:00 Temperature 98.1 F Pulse Rate 64 Pulse Rate [Left P ulse Oximeter] 63 Respiratory Rate 22 20 Blood Pressure [Ri ght Arm] 104/61 Pulse Oximetry 92 93 Oxygen Delivery Me thod Room Air Nasal Cannula Oxygen Flow Rate 1 0.5 Fraction of Inspir ed Oxygen 10/24/23 07:30 10/24/23 11:00 Temperature 99.1 F 98.7 F Pulse Rate Pulse Rate [Left P ulse Oximeter] 69 68 Respiratory Rate 20 20 Blood Pressure [Ri ght Arm] 107/67 109/51 L Pulse Oximetry 93 92 Oxygen Delivery Me thod Nasal Cannula Nasal Cannula Oxygen Flow Rate 0.5 0.5 Fraction of Inspir ed Oxygen Documenting provider has reviewed patient's vital signs: yes Labs Labs: Laboratory Results - last 24 hr 10/24/23 05:33 WBC 6.77 RBC 3.10 L Hgb 10.1 L Hct 32.4 L MCV 105 H MCH 33 MCHC 31 L RDW Coeff of Annabelle 15.2 Plt Count 255 Neut % (Auto) 63.5 Lymph % (Auto) 16.4 L [place] % (Auto) 12.3 H Eos % (Auto) 6.4 Baso % (Auto) 0.4 Neut # (Auto) 4.30 Lymph # (Auto) 1.10 [place] # (Auto) 0.80 Eos # (Auto) 0.43 Baso # (Auto) 0.03 Abs Immat Gran (auto) 0.07 Imm/Tot Granulo (auto) 1.0 Sodium 139 Potassium 3.8 Chloride 99 Carbon Dioxide 33 H Anion Gap 7 BUN 60 H Creatinine 2.1 H Estimated Creat Clear 27.39 Estimated GFR 30 Glucose 137 H Calcium 9.0 C-Reactive Protein 5.4 H
--- NOTE | 2023-10-24 15:38 | PC.NURSE ---
No ss BG required for BG of 116 and BG of 134. Please see eMar for meds given to this patient. OT eval and PT eval with upper arm support walker for ambulation. Goal is for pt to walk 4 times a day 60-80 feet per Lorena Brennan PT. Dressings removed for Dr. Degroot at shift change. Cleansed all wounds with Vasche. Xeroform to Bilateral lower leg abrasions, left leg has a deeper crevice adjacent to it, right leg has an oval area the size of a Kiwi and a small area posterior to it on back of corbett. Kerlix fluffs over sites and wrapped with jameel wrap. Mepilex to left knee abrasion. IV ATB infused w/o difficulty, 02 continues at 0 .5L/nc. ENC TCDB with nursing interventions. Report to Andrew EL for evening shift. See tele interpretation.
--- NOTE | 2023-10-24 15:43 | PC.SOCIAL ---
Discharge planning- Per MD, pt will need IV antibiotics through this Sunday and pt will be ready for SNF for Sunday. E-mail from Laura Starch at [facility] and they have accepted pt for admission for short-term rehab stay. Provided update on pt's status with IV antibiotics. Laura informs that [facility] will hold bed for pt until Sunday. Laura asks that this worker provide her an update right away Sunday morning if pt will admit to [facility]. Phone call to pt's to provide update on acceptance to [facility]. Pt's will talk with pt. Pt's requests non-emergency EMS to transport pt to [facility] and agrees to pay the fee. Provided update to charge nurse. Social work will follow up as needed.
--- NOTE | 2023-10-24 18:48 | PC.NURSE ---
(15-19) Pt alert and oriented. Pt had no complaints of pain. Pt?s wound care completed by day shift RN with help of evening RN. Pt up in chair during shift.
[2023-10-24] MEDS: INSULIN ASPART 100 UNIT/ML SUBCUT (20:41)
[2023-10-25] VITALS (7 sets, daily range): BP systolic 88–121; BP diastolic 57–64; PULSE 65–73; RESP 20; TEMP 36.6–37.2; O2SAT 89–94
[2023-10-25] MEDS: PIPERACILLIN/TAZOBACTAM 2.25 GM in 0.9 % SODIUM CHLORIDE Mini-bag 100 ML IVPB ×4 (02:34→21:13)
[2023-10-25] MEDS: LEVOTHYROXINE 50 MCG TABLET PO (06:04)
--- NOTE | 2023-10-25 06:17 | PC.NURSE ---
Pt rested well this night. Used home cpap on RA and o2 was in low 90s. Pt had to be placed on 1L NC when up in Chair. Pt desats to 84% with trip to BR on RA. Recovers quickly.
[2023-10-25 06:46] LABS: Basophils Absolute Auto 0.02 K/uL (0.00-0.30); Basophils Percent Auto 0.3 % (0.0-3.0); Eosinophils Absolute Auto 0.52 K/uL (0.00-0.50); Eosinophils Percent Auto 6.8 % (0.0-7.0); Hematocrit 34.4 % (37.0-53.0); Hemoglobin* 10.6 gm/dL (13.5-17.5); Immature Granulocytes Abs Auto 0.05 K/uL (0.00-0.30); Immature Granulocytes Pct Auto 0.7 %; Lymphocytes Percent Auto 15.8 % (20-44); Mean Corpuscular HGB Conc 31 gm/dL (32-36); Mean Corpuscular Hemoglobin 32 pg (26-34); Mean Corpuscular Volume 104 fL (80-100); Monocytes Percent Auto 11.6 % (0.0-11.0); Neutrophils Absolute Auto 4.94 K/uL (1.7-7.0); Neutrophils Percent Auto 64.8 % (42.0-72.0); Platelet Count* 291 K/uL (140-440); RDW Coefficient of Variation % 15.3 % (11.5-15.5); White Blood Count* 7.61 K/uL (4.50-11.00)
[2023-10-25 06:50] LABS: Slide Review Reflex No
[2023-10-25 07:13] LABS: Chloride* 100 mmol/L (96-114); Potassium* 3.6 mmol/L (3.6-5.1); Sodium* 140 mmol/L (135-149)
[2023-10-25 07:15] LABS: Est. Creatinine Clearance* 28.76; Estimated Glomerular Filt Rate 32 ml/min
[2023-10-25 07:16] LABS: Anion Gap 10 mEq/L (7-15); Blood Urea Nitrogen* 54 mg/dL (7-30); Carbon Dioxide* 30 mmol/L (20-32); Glucose* 125 mg/dL (60-115)
[2023-10-25] MEDS: GLIMEPIRIDE 1 MG TABLET 2 MG PO (09:01)
[2023-10-25] MEDS: FENOFIBRATE 145 MG TABLET PO (09:01)
[2023-10-25] MEDS: SODIUM CHLORIDE 0.9 % (FLUSH) 10 ML SYRINGE 5 ML IVF ×2 (09:01→21:13)
[2023-10-25] MEDS: METOPROLOL SUCCINATE (XL) 50 MG TAB PO (09:02)
[2023-10-25] MEDS: APIXABAN 5 MG TABLET 1.25 MG PO ×2 (09:02→21:12)
[2023-10-25] MEDS: FUROSEMIDE 40 MG TABLET PO ×2 (09:03→14:20)
[2023-10-25] MEDS: FLUTICASONE PROPIONATE NASAL 2 SPRAY NOSTRIL-B (09:03)
[2023-10-25] MEDS: AMIODARONE 200 MG TABLET PO (09:06)
[2023-10-25] MEDS: OMEPRAZOLE 20 MG CAPSULE DR PO ×2 (09:07→21:13)
[2023-10-25] MEDS: TAMSULOSIN HCL 0.4 MG CAPSULE PO (09:07)
--- NOTE | 2023-10-25 12:23 | PM.IMPN1 ---
Progress Note: A&P Assessment and plan (1) Venous stasis ulcer: Problem details: Right lower extremity ulcers may be traumatic or venous stasis with some associated cellulitis. Currently well managed and ulcers healing slowly Status: Acute (2) Cellulitis: Problem details: Moderately ill with profound weakness, fever, elevated lactate, elevated white blood count, low blood pressure. Associated with left leg laceration as well as venous stasis skin changes on both legs. Clinically improving. Continue Zosyn through October 27. Status: Acute (3) Diabetic neuropathy: Status: Acute (4) Lymphedema: Problem details: Improved with compression wraps. Status: Acute (5) Venous insufficiency (chronic) (peripheral): Status: Acute (6) Bacteremia: Problem details: Blood cultures growing pansensitive Pseudomonas and Staph species that are probably contaminants. Continue Zosyn through October 27. Status: Acute (7) Pneumonia: Problem details: Chest x-ray suspicious for pneumonia, hypoxia and sepsis. Continue Zosyn through October 27. Check chest x-ray tomorrow Status: Acute (8) Elevated troponin: Problem details: Troponin stable. No chest pain. Status: Acute (9) Risk for falls: Problem details: PT and OT to evaluate Status: Acute (10) Weakness: Problem details: PT and OT to evaluate. Likely needs senior care facility Status: Acute (11) Hypoxic respiratory failure: Problem details: Possibly due to heart failure versus pneumonia. Caution with diuresis. Antibiotics should appropriately treat pneumonia. Increased diuretic for heart failure. Chest x-ray tomorrow Status: Acute (12) Latent autoimmune diabetes in adults, managed as type 2: Problem details: Monitor and manage diabetes. So far well controlled Status: Acute (13) Atrial flutter: Problem details: Currently on half dose of normal renal dose anticoagulation, apixaban 1.25 mg twice daily. Continue that for now especially with antiplatelet therapy and risk for bleeding. Status: Acute (14) Hypertension: Problem details: Resume home medications. Early on had low blood pressure due to sepsis. Now better Status: Acute (15) Congestive heart failure: Problem details: May be contributing to current hypoxia. Continue home diuresis cautiously due to low blood pressure. Hypoxia better but developing a contraction alkalosis. Increased diuretic and closely monitor fluid electrolyte status Status: Acute (16) Sepsis: Problem details: On admission had fever, leukocytosis, elevated CRP, elevated lactate, elevated troponin, hypoxic respiratory failure, altered mental status. All have improved in the last few days Status: Acute Plan Continue in hospital for 3 more days of IV antibiotics. Plan senior care facility for rehab after that. Will need ongoing wound care with dressing changes and compression. Time Spent With Patient Total time spent: Total time spent today is 40 minutes, 30 minutes in coordination care discussing with patient other providers management of cellulitis, bacteremia, diabetes and debility Subjective Date Seen: 10/25/23 Interval history: Haris Villa is a 83 year old male who presented to the emergency room with increasing weakness and redness in his left lower extremity wound. Haris has a past medical history of diabetes with diabetic neuropathy and diabetic nephropathy, coronary artery disease, hypertension, hyperlipidemia, atrial fibrillation anticoagulated on Eliquis, BPH, chronic anemia, hypothyroidism on thyroid supplementation and history of ICD placement. Haris has a significant recent history of suffering a fall on 10/08 of this year when he was walking on a porch and subsequently slipped and fell in the snow. He unfortunately suffered a laceration of his left lower extremity and was seen in the emergency room at that time. The laceration was sutured and he was sent to the wound clinic for follow-up as he does have chronic right lower extremity wounds that have been seen in the wound clinic previously. Unfortunately, he started noticing some drainage from the left lower extremity wound as well as symptoms of being chilled and decreased appetite. He also noticed some increasing erythema and swelling around the wound site and he presented to the emergency room with the symptoms along with worsening weakness and inability to do his ADLs. In the emergency room he was evaluated and found to have an infected wound with surrounding cellulitis. He was given 1 g of IV Rocephin and is currently being admitted to the medical service for ongoing evaluation and treatment. At the time I am seeing Haris, he does confirm the above history. He states that with his weakness he did fall out of bed earlier this morning and was unable to get up and that is why he presented to the emergency room. He otherwise denies any other acute complaints or problems at the time I am seeing him. Patient reports that he is normally able to ambulate but became quite weak recently. He reports no other symptoms of illness, cold, sore throat, cough, shortness of breath, chest pain. He is on oxygen at this time. He reports currently is breathing is comfortable. He does not normally have oxygen and is not known to have chronic lung disease. He does have a history of congestive heart failure. He also has a history of coronary artery disease and atrial flutter. He has an ICD that was interrogated last month and found to be working well with good battery life. He has a history of atrial flutter and is on half normal renal dose anticoagulation with apixaban 1.25 mg twice daily. He does have a history of GI bleeding Patient thinks he slowly improving. Still very weak. Very dyspneic with activity. Struggling to walk. Not aware of any fever. Still requiring supplemental oxygen. No dyspnea. Itching of his legs that have been bothering for the last couple days is better with current elastic compression Exam Narrative: Exam Narrative: He is alert and appears in no distress. Respirations are clear to auscultation with an occasional basilar crackle. Cardiovascular: S1, S2, regular rate and rhythm. Abdomen: Bowel sounds active. Abdomen is soft without tenderness or mass. Lower extremities with chronic venous stasis skin changes. Ulcers on the right improved with less drainage and granulation tissue at the bases. Laceration of his leg on the right also with improved drainage and you good granulation tissue. Overall the erythema of the legs is improved as well. Const: Vital Signs, click to edit/add: Vital Signs - 24 hr 10/24/23 15:36 10/24/23 15:36 10/24/23 16:11 Temperature 98.0 F Pulse Rate 69 Pulse Rate [Left P ulse Oximeter] 62 Respiratory Rate 18 18 Blood Pressure [Ri t Arm] 109/77 Pulse Oximetry 93 93 Oxygen Delivery Me thod Nasal Cannula Nasal Cannula Oxygen Flow Rate 0.5 0.5 Fraction of Inspir ed Oxygen 10/24/23 19:21 10/24/23 20:55 10/24/23 22:34 Temperature 98.6 F 98.6 F Pulse Rate 62 Pulse Rate [Left P ulse Oximeter] 70 66 Respiratory Rate 16 16 Blood Pressure [Ri ght Arm] 111/57 L 92/51 L Pulse Oximetry 92 90 Oxygen Delivery Me thod Nasal Cannula CPAP Oxygen Flow Rate 0.5 0 Fraction of Inspir ed Oxygen 20 10/24/23 22:35 10/24/23 23:29 10/25/23 02:39 Temperature 98.2 F Pulse Rate Pulse Rate [Left P ulse Oximeter] 66 65 Respiratory Rate 16 16 20 Blood Pressure [Ri ght Arm] 107/60 Pulse Oximetry 90 91 Oxygen Delivery Me thod CPAP CPAP Oxygen Flow Rate 0 Fraction of Inspir ed Oxygen 20 10/25/23 07:00 10/25/23 07:00 10/25/23 08:00 Temperature 98.9 F Pulse Rate 65 Pulse Rate [Left P ulse Oximeter] 73 Respiratory Rate 20 Blood Pressure [Ri ght Arm] 121/64 Pulse Oximetry 92 94 Oxygen Delivery Me thod Nasal Cannula Nasal Cannula Oxygen Flow Rate 1 1 Fraction of Inspir ed Oxygen Documenting provider has reviewed patient's vital signs: yes Labs Labs: Laboratory Results - last 24 hr 10/25/23 05:36 WBC 7.61 RBC 3.30 L Hgb 10.6 L Hct 34.4 L MCV 104 H MCH 32 MCHC 31 L RDW Coeff of Annabelle 15.3 Plt Count 291 Neut % (Auto) 64.8 Lymph % (Auto) 15.8 L [place] % (Auto) 11.6 H Eos % (Auto) 6.8 Baso % (Auto) 0.3 Neut # (Auto) 4.94 Lymph # (Auto) 1.20 [place] # (Auto) 0.90 Eos # (Auto) 0.52 H Baso # (Auto) 0.02 Abs Immat Gran (auto) 0.05 Imm/Tot Granulo (auto) 0.7 Sodium 140 Potassium 3.6 Chloride 100 Carbon Dioxide 30 Anion Gap 10 BUN 54 H Creatinine 2.0 H Estimated Creat Clear 28.76 Estimated GFR 32 Glucose 125 H Calcium 9.0
--- NOTE | 2023-10-25 15:29 | PC.NURSE ---
No SS insulin for bg values of [address] Degroot in to view dressings and changed per primary RN. Report to Amy Andrews RN for evening shift.
[2023-10-25] MEDS: 0.9 % SODIUM CHLORIDE 250 ml IV (21:28)
[2023-10-26] VITALS (7 sets, daily range): BP systolic 103–123; BP diastolic 53–78; PULSE 51–91; RESP 20–28; TEMP 36.3–36.7; O2SAT 91–94
[2023-10-26] MEDS: PIPERACILLIN/TAZOBACTAM 2.25 GM in 0.9 % SODIUM CHLORIDE Mini-bag 100 ML IVPB ×4 (02:42→20:40)
--- NOTE | 2023-10-26 05:13 | PC.NURSE ---
[id number] Pt slept well during night, denies pain. using home cpap while asleep, no oxygen. required 0.5 LPM O2 while awake with activity, desats to mid 80's on RA. Sourav wraps to BLE intact, no drainage noted.
[2023-10-26] MEDS: LEVOTHYROXINE 50 MCG TABLET PO (06:16)
[2023-10-26 06:51] LABS: Basophils Absolute Auto 0.03 K/uL (0.00-0.30); Basophils Percent Auto 0.4 % (0.0-3.0); Eosinophils Absolute Auto 0.49 K/uL (0.00-0.50); Eosinophils Percent Auto 6.1 % (0.0-7.0); Hematocrit 34.4 % (37.0-53.0); Hemoglobin* 10.6 gm/dL (13.5-17.5); Immature Granulocytes Abs Auto 0.11 K/uL (0.00-0.30); Immature Granulocytes Pct Auto 1.4 %; Lymphocytes Percent Auto 14.1 % (20-44); Mean Corpuscular HGB Conc 31 gm/dL (32-36); Mean Corpuscular Hemoglobin 32 pg (26-34); Mean Corpuscular Volume 104 fL (80-100); Monocytes Percent Auto 10.5 % (0.0-11.0); Neutrophils Absolute Auto 5.39 K/uL (1.7-7.0); Neutrophils Percent Auto 67.5 % (42.0-72.0); Platelet Count* 299 K/uL (140-440); RDW Coefficient of Variation % 15.2 % (11.5-15.5); White Blood Count* 7.99 K/uL (4.50-11.00)
[2023-10-26 06:53] LABS: Slide Review Reflex No
--- NOTE | 2023-10-26 07:00 | CRLHL7_ITS ---
For Patients: As a result of the Century Cures Act, medical imaging exams and procedure reports are released immediately into your electronic medical record. You may view this report before your referring provider. If you have questions, please contact your health care provider. INDICATION: Hypoxia. TECHNIQUE: Chest 2 views. COMPARISON: 10/21/2023. FINDINGS: Cardiovascular and mediastinum: Mild cardiomegaly, unchanged. Status post median sternotomy and CABG. Unchanged cardiac pacemaker. Lungs and pleural spaces: Small right pleural effusion. Patchy bibasilar opacities, left greater than right. Upper lungs clear. No pneumothorax. Bones and soft tissues: No significant findings. IMPRESSION: Small right pleural effusion. Patchy bibasilar opacities, left greater than right, suspicious for pneumonia. Dictated by Jase Myers MD @ 10/26/2023 7:54:12 AM (Electronically Signed)
[2023-10-26 07:06] LABS: Chloride* 103 mmol/L (96-114); Potassium* 3.2 mmol/L (3.6-5.1); Sodium* 141 mmol/L (135-149)
[2023-10-26 07:09] LABS: Anion Gap 8 mEq/L (7-15); Blood Urea Nitrogen* 44 mg/dL (7-30); Carbon Dioxide* 30 mmol/L (20-32); Creatinine* 1.8 mg/dL (0.5-1.5); Est. Creatinine Clearance* 31.96; Estimated Glomerular Filt Rate 36 ml/min
[2023-10-26 07:10] LABS: Calcium* 8.9 mg/dL (8.4-10.6); Glucose* 109 mg/dL (60-115)
[2023-10-26 07:12] LABS: C Reactive Protein* 2.4 mg/dL (0.5-1.0)
[2023-10-26 07:18] LABS: NT Pro B Type NatriureticPept* 10800 pg/mL
[2023-10-26] MEDS: POTASSIUM BICARB 25 MEQ EFFERVESCENT TAB PO (07:46)
[2023-10-26] MEDS: FUROSEMIDE 40 MG TABLET PO ×2 (07:56→13:40)
[2023-10-26] MEDS: POTASSIUM CHLORIDE 10 MEQ CAPSULE ER PO ×2 (07:56→17:41)
[2023-10-26] MEDS: FENOFIBRATE 145 MG TABLET PO (09:27)
[2023-10-26] MEDS: AZITHROMYCIN 250 MG TABLET 500 MG PO (09:27)
[2023-10-26] MEDS: APIXABAN 5 MG TABLET 1.25 MG PO ×2 (09:27→20:38)
[2023-10-26] MEDS: TAMSULOSIN HCL 0.4 MG CAPSULE PO (09:28)
[2023-10-26] MEDS: OMEPRAZOLE 20 MG CAPSULE DR PO ×2 (09:28→20:39)
[2023-10-26] MEDS: GLIMEPIRIDE 1 MG TABLET 2 MG PO (09:28)
[2023-10-26] MEDS: SODIUM CHLORIDE 0.9 % (FLUSH) 10 ML SYRINGE 5 ML IVF (09:29)
[2023-10-26] MEDS: METOPROLOL SUCCINATE (XL) 50 MG TAB PO (09:29)
[2023-10-26] MEDS: FLUTICASONE PROPIONATE NASAL 2 SPRAY NOSTRIL-B (09:32)
--- NOTE | 2023-10-26 10:39 | W.PM.IDPRG_ITS ---
Visit Information Visit Information Date: 10/26/23 Visit Information: Patient was not seen. Subjective Subjective Subjective: This patient recommendation is based on a telemedicine consult request which was completed asynchronously through chart review and information provided by the primary physician. The patient was not seen or examined today. The evaluation is consultative in nature and all patient care and treatment decisions can either be accepted or rejected by the patient's primary hospital-based treating physician using their own independent medical judgment for their patient. Home Medications and Allergies Home Medications and Allergies Inpatient Medications: Active Medications Generic Name Dose Route Start Last Admin Trade Name Freq PRN Reason Stop Dose Admin Acetaminophen 1,000 mg 10/21/23 04:59 Acetaminophen 500 Mg Tablet PO TID PRN pain or fever Amiodarone HCl 200 mg 10/21/23 09:00 10/25/23 09:06 Amiodarone 200 Mg Tablet PO 200 mg DAILY JD Administration Apixaban 1.25 mg 10/21/23 09:00 10/26/23 09:27 Apixaban 5 Mg Tablet PO 1.25 mg BID JD Administration Azithromycin 500 mg 10/26/23 08:30 10/26/23 09:27 Azithromycin 250 Mg Tablet PO 500 mg Q24H JD Administration Fenofibrate 145 mg 10/21/23 09:00 10/26/23 09:27 Fenofibrate 145 Mg Tablet PO 145 mg DAILY JD Administration Fluticasone Propionate 2 spray 10/21/23 09:00 10/26/23 09:32 Fluticasone Propionate Nasal NOSTRIL-B 1 spray DAILY JD Administration Furosemide 40 mg 10/25/23 14:00 10/26/23 07:56 Furosemide 40 Mg Tablet PO 40 mg BID@0800,1400 JD Administration Glimepiride 2 mg 10/21/23 09:00 10/26/23 09:28 Glimepiride 1 Mg Tablet PO 2 mg DAILY JD Administration Guaifenesin/Dextromethorphan 20 ml 10/25/23 10:01 Guaif/Dm 200-20 Mg/20 Ml 118 Ml Liquid PO Q4H PRN Piperacillin Sod/Tazobactam 100 mls @ 200 mls/hr 10/21/23 09:00 10/26/23 10:26 Sod 2.25 gm/ Sodium Chloride IVPB Infused Q6H JD Infusion Insulin Aspart 0 unit 10/21/23 07:30 10/26/23 07:45 Insulin Aspart 100 Unit/Ml SUBCUT Not Given ACHS [facility] Protocol Insulin Detemir 14 unit 10/21/23 05:00 10/26/23 09:30 Insulin Detemir (Levemir) 100 Unit/Ml SUBCUT 14 unit DAILY JD Administration Levothyroxine Sodium 50 mcg 10/21/23 06:30 10/26/23 06:16 Levothyroxine 50 Mcg Tablet PO 50 mcg DAILY@0630 JD Administration Metoprolol Succinate 50 mg 10/21/23 09:00 10/26/23 09:29 Metoprolol Succinate (Xl) 50 Mg Tab PO 50 mg DAILY JD Administration Omeprazole 20 mg 10/21/23 09:00 10/26/23 09:28 Omeprazole [address] PO 20 mg BID JD Administration Potassium Chloride 10 meq 10/26/23 08:00 10/26/23 07:56 Potassium Chloride 10 Meq Capsule Er PO 10 meq BIDWM JD Administration Sodium Chloride 5 ml 10/21/23 04:54 10/24/23 02:37 Sodium Chloride 0.9 % (Flush) 10 Ml Syringe IVF 5 ml .FLUSH PRN Administration Sodium Chloride 5 ml 10/21/23 09:00 10/26/23 09:29 Sodium Chloride 0.9 % (Flush) 10 Ml Syringe IVF 5 ml BID JD Administration Sodium Chloride 250 ml 10/25/23 21:00 10/25/23 21:28 0.9 % Sodium Chloride 250 Ml IV 250 ml Q24H JD Administration Tamsulosin HCl 0.4 mg 10/21/23 09:00 10/26/23 09:28 Tamsulosin Hcl 0.4 Mg Capsule PO 0.4 mg DAILY JD Administration Tramadol HCl 50 - 100 mg 10/21/23 04:54 Tramadol Hcl 50 Mg Tablet PO Q6H PRN Discontinued Medications Generic Name Dose Route Start Last Admin Trade Name Freq PRN Reason Stop Dose Admin Aspirin 162 mg 10/21/23 09:50 10/21/23 10:27 Aspirin 81 Mg Tab.Chew PO 10/21/23 09:51 162 mg ONCE ONE Administration Ceftriaxone Sodium Confirm 10/21/23 03:07 Ceftriaxone 1 Gm Vial Administered 10/21/23 03:08 Dose 1 gm .ROUTE .STK-MED ONE Fluticasone Propionate 2 spray 10/21/23 05:00 10/21/23 10:35 Fluticasone Propionate Nasal NOSTRIL-B Not Given DAILY JD Furosemide 40 mg 10/21/23 09:00 10/25/23 09:03 Furosemide 40 Mg Tablet PO 40 mg DAILY JD Administration Furosemide 20 mg 10/22/23 14:00 10/22/23 14:31 Furosemide 10 Mg/Ml Inj IVP 10/22/23 14:01 20 mg ONCE ONE Administration Furosemide 20 mg 10/23/23 07:59 10/23/23 09:16 Furosemide 10 Mg/Ml Inj IVP 10/23/23 08:00 20 mg ONCE ONE Administration Sodium Chloride 1,000 mls @ 1,000 mls/hr 10/21/23 01:15 10/21/23 02:40 0.9 % Sodium Chloride 1000 Ml IV 10/21/23 02:14 Infused .Q1H ONE Infusion Ceftriaxone Sodium 1 gm/ 100 mls @ 200 mls/hr 10/21/23 03:03 10/26/23 07:07 Sodium Chloride IVPB 10/21/23 03:04 Infused ONCE ONE Infusion Ceftriaxone Sodium 1 gm/ 100 mls @ 200 mls/hr 10/22/23 06:00 Sodium Chloride IVPB Q24H JD Sodium Chloride 1,000 mls @ 100 mls/hr 10/21/23 05:30 10/21/23 16:35 0.9 % Sodium Chloride 1000 Ml IV Not Given .Q10H JD Vancomycin HCl 2,000 mg/ 520 mls @ 260 mls/hr 10/21/23 09:30 10/26/23 07:08 Sodium Chloride IVPB 10/21/23 11:29 Infused ONCE ONE Infusion Protocol Vancomycin HCl 1,750 mg/ 517.5 mls @ 258.75 mls/hr 10/22/23 09:00 10/26/23 07:07 Sodium Chloride IVPB Infused Q24H JD Infusion Protocol Vancomycin HCl 1,000 mg/ 260 mls @ 258.75 mls/hr 10/23/23 09:00 10/26/23 0 7:07 Sodium Chloride IVPB Infused Q24H JD Infusion Protocol Lidocaine HCl 6 ml 10/21/23 08:47 10/21/23 08:57 Lidocaine Hcl 2 % Jelly (Top) Sterile TOPICAL 10/21/23 08:48 6 ml ONCE ONE Administration Lidocaine HCl 6 ml 10/21/23 08:53 10/21/23 10:35 Lidocaine Hcl 2 % Jelly (Top) Sterile TOPICAL 10/21/23 08:54 Not Given ONCE ONE Potassium Bicarbonate 50 meq 10/21/23 09:08 10/21/23 10:24 Potassium Bicarb 25 Meq Effervescent Tab PO 10/21/23 09:09 50 meq ONCE ONE Administration Potassium Bicarbonate 50 meq 10/22/23 11:07 10/22/23 11:25 Potassium Bicarb 25 Meq Effervescent Tab PO 10/22/23 11:08 50 meq ONCE ONE Administration Potassium Bicarbonate 50 meq 10/23/23 07:59 10/23/23 09:17 Potassium Bicarb 25 Meq Effervescent Tab PO 10/23/23 08:00 50 meq ONCE ONE Administration Potassium Bicarbonate 25 meq 10/26/23 07:25 10/26/23 07:46 Potassium Bicarb 25 Meq Effervescent Tab PO 10/26/23 07:26 25 meq ONCE ONE Administration Sodium Chloride 250 ml 10/21/23 05:30 10/21/23 07:53 0.9 % Sodium Chloride 250 Ml IV Not Given Q24H JD Allergies Allergy/AdvReac Type Severity Reaction Status Date / Time adhesive Allergy Unknown Rash Verified 10/12/23 08:33 rosuvastatin Allergy Unknown muscle Verified 10/12/23 08:33 soreness/weakness Objective - Infectious Disease Objective Vital Signs: Vital Signs - 24 hr 10/25/23 11:00 10/25/23 15:00 10/25/23 15:00 Temperature 97.9 F Pulse Rate [Left Pulse Oximeter] 69 73 Respiratory Rate 20 20 20 Blood Pressure [Left Arm] Blood Pressure [Right Arm] 121/64 Pulse Oximetry 91 91 Oxygen Delivery Method Nasal Cannula Nasal Cannula Oxygen Flow Rate 0.5 0.5 Fraction of Inspired Oxygen 20 10/25/23 15:00 10/25/23 19:00 10/25/23 22:35 Temperature 98.2 F 98.6 F Pulse Rate [Left Pulse Oximeter] 73 69 69 Respiratory Rate 20 20 Blood Pressure [Left Arm] Blood Pressure [Right Arm] 88/57 L 106/60 Pulse Oximetry 91 94 Oxygen Delivery Method Nasal Cannula Nasal Cannula Oxygen Flow Rate 0.5 0.5 Fraction of Inspired Oxygen 20 10/25/23 22:35 10/25/23 22:35 10/26/23 03:00 Temperature 98.3 F Pulse Rate [Left Pulse Oximeter] 67 91 Respiratory Rate 20 20 20 Blood Pressure [Left Arm] Blood Pressure [Right Arm] 123/76 Pulse Oximetry 89 89 91 Oxygen Delivery Method CPAP CPAP CPAP Oxygen Flow Rate Fraction of Inspired Oxygen 20 10/26/23 07:48 10/26/23 07:48 10/26/23 07:48 Temperature 97.8 F Pulse Rate [Left Pulse Oximeter] 72 72 Respiratory Rate 28 H 28 H 28 H Blood Pressure [Left Arm] 112/65 Blood Pressure [Right Arm] Pulse Oximetry 91 91 Oxygen Delivery Method Room Air Room Air Oxygen Flow Rate Fraction of Inspired Oxygen Narrative: Patient was not seen or examined. Results - Infectious Disease Results Labs: 10/23/23 05:47 Blood Blood Culture - Preliminary NO GROWTH AFTER 72 HOURS 10/24/23 05:33 Blood Blood Culture - Preliminary NO GROWTH AFTER 48 HOURS 10/21/23 00:20 Blood Blood Culture - Final Pseudomonas aeruginosa 10/21/23 10:16 Leg Left Wound Culture - Final Staphylococcus aureus 10/21/23 00:30 Blood Blood Culture - Final Staphylococcus epidermidis Staphylococcus lugdunensis 10/21/23 01:15 Urine,Clean Catch Urine Culture - Final 10/21/23 10:16 Nares MRSA Screen - Final No MRSA (Methicillin resistant Staph aureus) isolated. Laboratory Tests 10/26/23 10/25/23 10/24/23 Range/Units 05:49 05:36 05:33 WBC 7.99 7.61 6.77 (4.50-11.00) K/uL RBC 3.30 L 3.30 L 3.10 L (4.30-5.90) m/uL Hgb 10.6 L 10.6 L 10.1 L (13.5-17.5) gm/dL Hct 34.4 L 34.4 L 32.4 L (37.0-53.0) % MCV 104 H 104 H 105 H (80-100) fL MCH 32 32 33 (26-34) pg MCHC 31 L 31 L 31 L (32-36) gm/dL RDW Coeff of Annabelle 15.2 15.3 15.2 (11.5-15.5) % Plt Count 299 291 255 (140-440) K/uL Neut % (Auto) 67.5 64.8 63.5 (42.0-72.0) % Lymph % (Auto) 14.1 L 15.8 L 16.4 L (20-44) % [place] % (Auto) 10.5 11.6 H 12.3 H (0.0-11.0) % Eos % (Auto) 6.1 6.8 6.4 (0.0-7.0) % Baso % (Auto) 0.4 0.3 0.4 (0.0-3.0) % Neut # (Auto) 5.39 4.94 4.30 (1.7-7.0) K/uL Lymph # (Auto) 1.10 1.20 1.10 (0.90-2.90) K/uL [place] # (Auto) 0.80 0.90 0.80 (0.00-0.90) K/UL Eos # (Auto) 0.49 0.52 H 0.43 (0.00-0.50) K/uL Baso # (Auto) 0.03 0.02 0.03 (0.00-0.30) K/uL Abs Immat Gran (auto) 0.11 0.05 0.07 (0.00-0.30) K/uL Imm/Tot Granulo (auto) 1.4 0.7 1.0 % D-Dimer Quant (PE/DVT) (0.00-0.50) ug/ml VBG pH (7.32-7.43) VBG pCO2 (40-50) mmHG VBG pO2 (25-47) mmHG VBG HCO3 (21-28) mmol/L Sodium 141 140 139 (135-149) mmol/L Potassium 3.2 L 3.6 3.8 (3.6-5.1) mmol/L Chloride 103 100 99 (96-114) mmol/L Carbon Dioxide 30 30 33 H (20-32) mmol/L Anion Gap 8 10 7 (7-15) mEq/L BUN 44 H 54 H 60 H (7-30) mg/dL Creatinine 1.8 H 2.0 H 2.1 H (0.5-1.5) mg/dL Estimated Creat Clear 31.96 28.76 27.39 Estimated GFR 36 32 30 ml/min Glucose 109 125 H 137 H (60-115) mg/dL Lactate (0.5-1.9) mmol/L Calcium 8.9 9.0 9.0 (8.4-10.6) mg/dL Magnesium (1.5-2.6) mg/dL Total Bilirubin (0.1-1.5) mg/dL Direct Bilirubin (0.0-0.5) mg/dL AST (12-35) U/L ALT (4-50) U/L Alkaline Phosphatase (40-150) U/L Troponin I (0.01-0.04) ng/mL C-Reactive Protein 2.4 H 5.4 H (0.5-1.0) mg/dL NT-Pro-B Natriuret Pep 62961 pg/mL Total Protein (6.0-8.3) g/dL Albumin (3.3-5.0) g/dL Urine Color (Yellow) Urine Appearance (Clear) Urine pH (5.0-8.5) Ur Specific [place] (1.000-1.030) Urine Protein (Negative) Urine Glucose (UA) (Negative) Urine Ketones (Negative) Urine Blood (Negative) Urine Nitrite (Negative) Urine Bilirubin (Negative) Urine Urobilinogen (0.2-1.0) Ur Leukocyte Esterase (Negative) Urine RBC (0-2) Urine WBC (0-5) Ur Squamous Epith Cells (None-Few) Urine Bacteria (None) SARS-CoV-2 (PCR) (Negative) Influenza Type A (PCR) (Negative) Influenza Type B (PCR) (Negative) RSV (PCR) (Negative) Lab Acknowledgement POC Troponin I (0.01-0.04) ng/ml 10/23/23 10/22/23 10/21/23 Range/Units 05:47 05:55 13:05 WBC 7.66 9.78 (4.50-11.00) K/uL RBC 3.09 L 2.98 L (4.30-5.90) m/uL Hgb 10.0 L 9.9 L (13.5-17.5) gm/dL Hct 32.7 L 31.5 L (37.0-53.0) % MCV 106 H 106 H (80-100) fL MCH 32 33 (26-34) pg MCHC 31 L 31 L (32-36) gm/dL RDW Coeff of Annabelle 15.4 15.7 H (11.5-15.5) % Plt Count 233 225 (140-440) K/uL Neut % (Auto) 68.5 75.0 H (42.0-72.0) % Lymph % (Auto) 14.0 L 10.6 L (20-44) % [place] % (Auto) 11.4 H 11.3 H (0.0-11.0) % Eos % (Auto) 5.5 2.7 (0.0-7.0) % Baso % (Auto) 0.3 0.2 (0.0-3.0) % Neut # (Auto) 5.26 7.30 H (1.7-7.0) K/uL Lymph # (Auto) 1.10 1.00 (0.90-2.90) K/uL [place] # (Auto) 0.90 1.10 H (0.00-0.90) K/UL Eos # (Auto) 0.42 0.26 (0.00-0.50) K/uL Baso # (Auto) 0.02 0.02 (0.00-0.30) K/uL Abs Immat Gran (auto) 0.02 0.02 (0.00-0.30) K/uL Imm/Tot Granulo (auto) 0.3 0.2 % D-Dimer Quant (PE/DVT) (0.00-0.50) ug/ml VBG pH 7.432 H (7.32-7.43) VBG pCO2 47 (40-50) mmHG VBG pO2 66.6 H (25-47) mmHG VBG HCO3 31 H (21-28) mmol/L Sodium 140 139 (135-149) mmol/L Potassium 3.4 L 3.6 (3.6-5.1) mmol/L Chloride 102 102 (96-114) mmol/L Carbon Dioxide 30 30 (20-32) mmol/L Anion Gap 8 7 (7-15) mEq/L BUN 58 H 57 H (7-30) mg/dL Creatinine 2.1 H 2.0 H (0.5-1.5) mg/dL Estimated Creat Clear 27.39 28.76 Estimated GFR 30 32 ml/min Glucose 112 99 (60-115) mg/dL Lactate 0.7 (0.5-1.9) mmol/L Calcium 8.7 8.8 (8.4-10.6) mg/dL Magnesium 2.3 (1.5-2.6) mg/dL Total Bilirubin (0.1-1.5) mg/dL Direct Bilirubin (0.0-0.5) mg/dL AST (12-35) U/L ALT (4-50) U/L Alkaline Phosphatase (40-150) U/L Troponin I 0.06 H* 0.08 H* (0.01-0.04) ng/mL C-Reactive Protein 8.0 H 15.1 H (0.5-1.0) mg/dL NT-Pro-B Natriuret Pep pg/mL Total Protein (6.0-8.3) g/dL Albumin (3.3-5.0) g/dL Urine Color (Yellow) Urine Appearance (Clear) Urine pH (5.0-8.5) Ur Specific [place] (1.000-1.030) Urine Protein (Negative) Urine Glucose (UA) (Negative) Urine Ketones (Negative) Urine Blood (Negative) Urine Nitrite (Negative) Urine Bilirubin (Negative) Urine Urobilinogen (0.2-1.0) Ur Leukocyte Esterase (Negative) Urine RBC (0-2) Urine WBC (0-5) Ur Squamous Epith Cells (None-Few) Urine Bacteria (None) SARS-CoV-2 (PCR) (Negative) Influenza Type A (PCR) (Negative) Influenza Type B (PCR) (Negative) RSV (PCR) (Negative) Lab Acknowledgement POC Troponin I (0.01-0.04) ng/ml 10/21/23 10/21/23 10/21/23 Range/Units 10:13 09:14 07:06 WBC 14.54 H (4.50-11.00) K/uL RBC 3.08 L (4.30-5.90) m/uL Hgb 10.2 L (13.5-17.5) gm/dL Hct 32.2 L (37.0-53.0) % MCV 105 H (80-100) fL MCH 33 (26-34) pg MCHC 32 (32-36) gm/dL RDW Coeff of Annabelle 15.5 (11.5-15.5) % Plt Count 255 (140-440) K/uL Neut % (Auto) 88.4 H (42.0-72.0) % Lymph % (Auto) 5.4 L (20-44) % [place] % (Auto) 5.8 (0.0-11.0) % Eos % (Auto) 0.1 (0.0-7.0) % Baso % (Auto) 0.1 (0.0-3.0) % Neut # (Auto) 12.90 H (1.7-7.0) K/uL Lymph # (Auto) 0.80 L (0.90-2.90) K/uL [place] # (Auto) 0.80 (0.00-0.90) K/UL Eos # (Auto) 0.00 (0.00-0.50) K/uL Baso # (Auto) 0.00 (0.00-0.30) K/uL Abs Immat Gran (auto) 0.00 (0.00-0.30) K/uL Imm/Tot Granulo (auto) 0.2 % D-Dimer Quant (PE/DVT) 0.60 H (0.00-0.50) ug/ml VBG pH (7.32-7.43) VBG pCO2 (40-50) mmHG VBG pO2 (25-47) mmHG VBG HCO3 (21-28) mmol/L Sodium 141 (135-149) mmol/L Potassium 3.1 L (3.6-5.1) mmol/L Chloride 104 (96-114) mmol/L Carbon Dioxide 28 (20-32) mmol/L Anion Gap 9 (7-15) mEq/L BUN 54 H (7-30) mg/dL Creatinine 2.1 H (0.5-1.5) mg/dL Estimated Creat Clear 27.39 Estimated GFR 30 ml/min Glucose 128 H (60-115) mg/dL Lactate (0.5-1.9) mmol/L Calcium 8.9 (8.4-10.6) mg/dL Magnesium (1.5-2.6) mg/dL Total Bilirubin (0.1-1.5) mg/dL Direct Bilirubin (0.0-0.5) mg/dL AST (12-35) U/L ALT (4-50) U/L Alkaline Phosphatase (40-150) U/L Troponin I 0.07 H* (0.01-0.04) ng/mL C-Reactive Protein (0.5-1.0) mg/dL NT-Pro-B Natriuret Pep 44181 pg/mL Total Protein (6.0-8.3) g/dL Albumin (3.3-5.0) g/dL Urine Color (Yellow) Urine Appearance (Clear) Urine pH (5.0-8.5) Ur Specific [place] (1.000-1.030) Urine Protein (Negative) Urine Glucose (UA) (Negative) Urine Ketones (Negative) Urine Blood (Negative) Urine Nitrite (Negative) Urine Bilirubin (Negative) Urine Urobilinogen (0.2-1.0) Ur Leukocyte Esterase (Negative) Urine RBC (0-2) Urine WBC (0-5) Ur Squamous Epith Cells (None-Few) Urine Bacteria (None) SARS-CoV-2 (PCR) (Negative) Influenza Type A (PCR) (Negative) Influenza Type B (PCR) (Negative) RSV (PCR) (Negative) Lab Acknowledgement Test Added Test Added POC Troponin I (0.01-0.04) ng/ml 10/21/23 10/21/23 10/21/23 Range/Units 01:15 00:37 00:20 WBC 16.27 H (4.50-11.00) K/uL RBC 3.49 L (4.30-5.90) m/uL Hgb 11.4 L (13.5-17.5) gm/dL Hct 36.4 L (37.0-53.0) % MCV 104 H (80-100) fL MCH 33 (26-34) pg MCHC 31 L (32-36) gm/dL RDW Coeff of Annabelle 15.6 H (11.5-15.5) % Plt Count 280 (140-440) K/uL Neut % (Auto) 88.0 H (42.0-72.0) % Lymph % (Auto) 3.7 L (20-44) % [place] % (Auto) 6.7 (0.0-11.0) % Eos % (Auto) 0.2 (0.0-7.0) % Baso % (Auto) 0.1 (0.0-3.0) % Neut # (Auto) 14.30 H (1.7-7.0) K/uL Lymph # (Auto) 0.60 L (0.90-2.90) K/uL [place] # (Auto) 1.10 H (0.00-0.90) K/UL Eos # (Auto) 0.00 (0.00-0.50) K/uL Baso # (Auto) 0.00 (0.00-0.30) K/uL Abs Immat Gran (auto) 0.20 (0.00-0.30) K/uL Imm/Tot Granulo (auto) 1.3 % D-Dimer Quant (PE/DVT) (0.00-0.50) ug/ml VBG pH 7.464 H (7.32-7.43) VBG pCO2 42 (40-50) mmHG VBG pO2 28.9 (25-47) mmHG VBG HCO3 30 H (21-28) mmol/L Sodium 141 (135-149) mmol/L Potassium 3.4 L (3.6-5.1) mmol/L Chloride 100 (96-114) mmol/L Carbon Dioxide 28 (20-32) mmol/L Anion Gap 13 (7-15) mEq/L BUN 58 H (7-30) mg/dL Creatinine 2.3 H (0.5-1.5) mg/dL Estimated Creat Clear 25.01 Estimated GFR 27 ml/min Glucose 142 H (60-115) mg/dL Lactate 2.2 H (0.5-1.9) mmol/L Calcium 9.5 (8.4-10.6) mg/dL Magnesium (1.5-2.6) mg/dL Total Bilirubin 1.3 (0.1-1.5) mg/dL Direct Bilirubin 0.6 H (0.0-0.5) mg/dL AST 33 (12-35) U/L ALT 17 (4-50) U/L Alkaline Phosphatase 51 (40-150) U/L Troponin I (0.01-0.04) ng/mL C-Reactive Protein 4.6 H (0.5-1.0) mg/dL NT-Pro-B Natriuret Pep pg/mL Total Protein 7.8 (6.0-8.3) g/dL Albumin 4.4 (3.3-5.0) g/dL Urine Color Yellow (Yellow) Urine Appearance Clear (Clear) Urine pH 5.0 (5.0-8.5) Ur Specific [place] 1.015 (1.000-1.030) Urine Protein Negative (Negative) Urine Glucose (UA) Negative (Negative) Urine Ketones Negative (Negative) Urine Blood Negative (Negative) Urine Nitrite Negative (Negative) Urine Bilirubin Negative (Negative) Urine Urobilinogen 0.2 (0.2-1.0) Ur Leukocyte Esterase Negative (Negative) Urine RBC 0-2 (0-2) Urine WBC 0-2 (0-5) Ur Squamous Epith Cells Few (None-Few) Urine Bacteria None (None) SARS-CoV-2 (PCR) (Negative) Influenza Type A (PCR) (Negative) Influenza Type B (PCR) (Negative) RSV (PCR) (Negative) Lab Acknowledgement POC Troponin I 0.07 H (0.01-0.04) ng/ml 10/20/23 Range/Units 23:55 WBC (4.50-11.00) K/uL RBC (4.30-5.90) m/uL Hgb (13.5-17.5) gm/dL Hct (37.0-53.0) % MCV (80-100) fL MCH (26-34) pg MCHC (32-36) gm/dL RDW Coeff of Annabelle (11.5-15.5) % Plt Count (140-440) K/uL Neut % (Auto) (42.0-72.0) % Lymph % (Auto) (20-44) % [place] % (Auto) (0.0-11.0) % Eos % (Auto) (0.0-7.0) % Baso % (Auto) (0.0-3.0) % Neut # (Auto) (1.7-7.0) K/uL Lymph # (Auto) (0.90-2.90) K/uL [place] # (Auto) (0.00-0.90) K/UL Eos # (Auto) (0.00-0.50) K/uL Baso # (Auto) (0.00-0.30) K/uL Abs Immat Gran (auto) (0.00-0.30) K/uL Imm/Tot Granulo (auto) % D-Dimer Quant (PE/DVT) (0.00-0.50) ug/ml VBG pH (7.32-7.43) VBG pCO2 (40-50) mmHG VBG pO2 (25-47) mmHG VBG HCO3 (21-28) mmol/L Sodium (135-149) mmol/L Potassium (3.6-5.1) mmol/L Chloride (96-114) mmol/L Carbon Dioxide (20-32) mmol/L Anion Gap (7-15) mEq/L BUN (7-30) mg/dL Creatinine (0.5-1.5) mg/dL Estimated Creat Clear Estimated GFR ml/min Glucose (60-115) mg/dL Lactate (0.5-1.9) mmol/L Calcium (8.4-10.6) mg/dL Magnesium (1.5-2.6) mg/dL Total Bilirubin (0.1-1.5) mg/dL Direct Bilirubin (0.0-0.5) mg/dL AST (12-35) U/L ALT (4-50) U/L Alkaline Phosphatase (40-150) U/L Troponin I (0.01-0.04) ng/mL C-Reactive Protein (0.5-1.0) mg/dL NT-Pro-B Natriuret Pep pg/mL Total Protein (6.0-8.3) g/dL Albumin (3.3-5.0) g/dL Urine Color (Yellow) Urine Appearance (Clear) Urine pH (5.0-8.5) Ur Specific [place] (1.000-1.030) Urine Protein (Negative) Urine Glucose (UA) (Negative) Urine Ketones (Negative) Urine Blood (Negative) Urine Nitrite (Negative) Urine Bilirubin (Negative) Urine Urobilinogen (0.2-1.0) Ur Leukocyte Esterase (Negative) Urine RBC (0-2) Urine WBC (0-5) Ur Squamous Epith Cells (None-Few) Urine Bacteria (None) SARS-CoV-2 (PCR) Negative SARS-CoV-2 (Negative) Influenza Type A (PCR) Negative PCR FLU A (Negative) Influenza Type B (PCR) Negative PCR FLU B (Negative) RSV (PCR) Negative PCR RSV (Negative) Lab Acknowledgement POC Troponin I (0.01-0.04) ng/ml Assessment and Plan Assessment and Plan Assessment and Plan: 83 yo M with history of DM, diabetic nephropathy and neuropathy, CAD s/p CABG, R SELVIN (2021), AICD in place who presented on 10/21 with increasing weakness, and LLE wound drainage/erythema, admitted with MSSA LLE wound infection s/p I&D (10/21), Pseudomonas bacteremia, and hypoxia requiring supplemental O2. He fell on 10/08 and sustained a LLE laceration, which was sutured in the ED at that time. He then began noticing drainage from the LLE wound and surrounding erythema and swelling. On presentation, pt was afebrile, requiring 2 L NC. Labs showed WBC 16.27, lactate 2.2 CRP 4.6. CXR showed L retrocardiac streaky opacities, may represent atelectasis or infiltrates. He was admitted and started on vanc and pip-tazo for LLE wound with cellulitis, and possible pneumonia vs CHF. Surgery performed an I&D of the wound on 10/21, and tissue culture grew MSSA. Admission blood cultures grew Pseudomonas in 1/4 bottles, Staph lug and Staph epi in 2/4 bottles. Pt's appears clinically improved, and leukocytosis has resolved. Micro: 10/24 BCx: NGTD 10/23 BCx: NGTD 10/21 LLE wound cx: MSSA (S cipro, doxy, levo, moxi, tetra, TMP-SMX) 10/21 UCx: NG 10/21 BCx x2: Staph epi and Staph lug in 2/4 bottles (same set), Pseudomonas in 1/4 bottles (franco-sensitive) Abx: Pip-tazo 10/21 - present Vanc 10/21 - 10/24 Ceftriaxone 1 g 10/21 Problems: #Pseudomonas bacteremia #MSSA LLE wound infection #Coag neg staph in blood culture: Staph epi and Staph lug #CKD Discussion: Unclear source of Pseudomonas bacteremia. Pt does not have central lines; does have a R SELVIN--but no report of pain at this site. Also has an AICD, but with low grade bacteremia, thus far not growing in repeat blood cultures from 10/23, think AICD infection is less likely. Could consider lower extremity wounds as a source, vs pneumonia. As for the Staph lugdunensis bacteremia, Staph lug can cause endocarditis, hardware-associated infections. However, since Staph epi also grew from this blood culture set, this raises concern for contamination. Recommendations: -Continue pip-tazo to cover MSSA and Pseudomonas. Complete a minimum 7 day course (through 10/27). It appears pt will be discharging on 10/29, so can continue pip-tazo until 10/29. Will sign off. Please page the [facility] Center ([phone]) with further questions.
--- NOTE | 2023-10-26 11:11 | PM.IMPN1 ---
Progress Note: A&P Assessment and plan (1) Venous stasis ulcer: Problem details: Right lower extremity ulcers may be traumatic or venous stasis with some associated cellulitis. Currently well managed and ulcers healing slowly. Status: Acute (2) Cellulitis: Problem details: Moderately ill with profound weakness, fever, elevated lactate, elevated white blood count, low blood pressure. Associated with left leg laceration as well as venous stasis skin changes on both legs. Clinically improving. Continue Zosyn until discharge on October 29 Status: Acute (3) Sepsis: Problem details: On admission had fever, leukocytosis, elevated CRP, elevated lactate, elevated troponin, hypoxic respiratory failure, altered mental status. All have improved in the last few days Status: Acute (4) Hypoxic respiratory failure: Problem details: Possibly due to heart failure versus pneumonia. Antibiotics should appropriately treat pneumonia. Increased diuretic for heart failure. Chest x-ray more suggestive of pneumonia than heart failure. Has weaned off of oxygen today. Status: Acute (5) Diabetic neuropathy: Status: Acute (6) Lymphedema: Problem details: Improved with compression wraps. Status: Acute (7) Venous insufficiency (chronic) (peripheral): Status: Acute (8) Bacteremia: Problem details: Blood cultures growing pansensitive Pseudomonas and Staph species that are probably contaminants. Continue Zosyn until discharge on October 29 Status: Acute (9) Pneumonia: Problem details: Chest x-ray suspicious for pneumonia, hypoxia and sepsis. Continue Zosyn until discharge on October 29. Chest x-ray on October 26 still suggest pneumonia. Will give a treatment course of Zithromax until discharge on October 29 Status: Acute (10) Elevated troponin: Problem details: Troponin stable. No chest pain. Likely due to chronic kidney disease, chronic heart disease with acute illness Status: Acute (11) Risk for falls: Problem details: PT and OT to evaluate. SNF for rehab Status: Acute (12) Weakness: Problem details: PT and OT to evaluate. Likely needs correction facility Status: Acute (13) Latent autoimmune diabetes in adults, managed as type 2: Problem details: Monitor and manage diabetes. Blood sugars have been well controlled so far Status: Acute (14) Atrial flutter: Problem details: Currently on half dose of normal renal dose anticoagulation, apixaban 1.25 mg twice daily. Continue that for now especially with antiplatelet therapy and risk for bleeding. Adequate rate control. Status: Acute (15) Hypertension: Problem details: Resume home medications. Early on had low blood pressure due to sepsis. Now better Status: Acute (16) Congestive heart failure: Problem details: May be contributing to current hypoxia. Continue home diuresis cautiously due to low blood pressure. Hypoxia better but developing a contraction alkalosis. Increased furosemide from 40 mg daily to b.i.d. with increased potassium. Will need to closely monitor fluid and electrolyte status. Status: Acute (17) Obstructive sleep apnea: Problem details: Sleeping better with home CPAP Status: Acute Plan Continue in hospital for IV antibiotics, wound care, management of chronic kidney disease and chronic heart disease and pneumonia. Anticipate discharge to correction facility on October 29 for ongoing rehab Time Spent With Patient Total time spent: Total time spent today is 40 minutes, 30 minutes in coordination of care discussing with patient other providers ongoing management of cellulitis and heart disease and pneumonia Subjective Date Seen: 10/26/23 Interval history: Haris Villa is a 83 year old male who presented to the emergency room with increasing weakness and redness in his left lower extremity wound. Haris has a past medical history of diabetes with diabetic neuropathy and diabetic nephropathy, coronary artery disease, hypertension, hyperlipidemia, atrial fibrillation anticoagulated on Eliquis, BPH, chronic anemia, hypothyroidism on thyroid supplementation and history of ICD placement. Haris has a significant recent history of suffering a fall on 10/08 of this year when he was walking on a porch and subsequently slipped and fell in the snow. He unfortunately suffered a laceration of his left lower extremity and was seen in the emergency room at that time. The laceration was sutured and he was sent to the wound clinic for follow-up as he does have chronic right lower extremity wounds that have been seen in the wound clinic previously. Unfortunately, he started noticing some drainage from the left lower extremity wound as well as symptoms of being chilled and decreased appetite. He also noticed some increasing erythema and swelling around the wound site and he presented to the emergency room with the symptoms along with worsening weakness and inability to do his ADLs. In the emergency room he was evaluated and found to have an infected wound with surrounding cellulitis. He was given 1 g of IV Rocephin and is currently being admitted to the medical service for ongoing evaluation and treatment. At the time I am seeing Haris, he does confirm the above history. He states that with his weakness he did fall out of bed earlier this morning and was unable to get up and that is why he presented to the emergency room. He otherwise denies any other acute complaints or problems at the time I am seeing him. Patient reports that he is normally able to ambulate but became quite weak recently. He reports no other symptoms of illness, cold, sore throat, cough, shortness of breath, chest pain. He is on oxygen at this time. He reports currently is breathing is comfortable. He does not normally have oxygen and is not known to have chronic lung disease. He does have a history of congestive heart failure. He also has a history of coronary artery disease and atrial flutter. He has an ICD that was interrogated last month and found to be working well with good battery life. He has a history of atrial flutter and is on half normal renal dose anticoagulation with apixaban 1.25 mg twice daily. He does have a history of GI bleeding Patient thinks he slowly improving. Still very weak. Very dyspneic with activity. Struggling to walk. Not aware of any fever. Still requiring supplemental oxygen. No dyspnea. Itching of his legs that have been bothering for the last couple days is better with current elastic compression Exam Narrative: Exam Narrative: He is alert and appears in no distress. Continues to exhibit a general improvement in mood, affect, alertness. Respirations with few basilar crackles. Otherwise clear. No wheezing. Cardiovascular: S1, S2, regular rate and rhythm. Abdomen is soft without tenderness or mass. Extremities with continued improvement in erythema. Wounds appear the same with granulation tissue at the wound base is that is relatively clean and diminished wound drainage on the dressings. Const: Vital Signs, click to edit/add: Vital Signs - 24 hr 10/25/23 15:00 10/25/23 15:00 10/25/23 15:00 Temperature 98.2 F Pulse Rate [Left P ulse Oximeter] 73 73 Respiratory Rate 20 20 20 Blood Pressure [Le ft Arm] Blood Pressure [Ri ght Arm] 88/57 L Pulse Oximetry 91 91 Oxygen Delivery Me thod Nasal Cannula Nasal Cannula Oxygen Flow Rate 0.5 0.5 Fraction of Inspir ed Oxygen 20 20 10/25/23 19:00 10/25/23 22:35 10/25/23 22:35 Temperature 98.6 F Pulse Rate [Left P ulse Oximeter] 69 69 Respiratory Rate 20 20 Blood Pressure [Le ft Arm] Blood Pressure [Ri ght Arm] 106/60 Pulse Oximetry 94 89 Oxygen Delivery Me thod Nasal Cannula CPAP Oxygen Flow Rate 0.5 Fraction of Inspir ed Oxygen 10/25/23 22:35 10/26/23 03:00 10/26/23 07:48 Temperature 98.3 F 97.8 F Pulse Rate [Left P ulse Oximeter] 67 91 72 Respiratory Rate 20 20 28 H Blood Pressure [Le ft Arm] 112/65 Blood Pressure [Ri ght Arm] 123/76 Pulse Oximetry 89 91 91 Oxygen Delivery Me thod CPAP CPAP Room Air Oxygen Flow Rate Fraction of Inspir ed Oxygen 20 10/26/23 07:48 10/26/23 07:48 Temperature Pulse Rate [Left P ulse Oximeter] 72 Respiratory Rate 28 H 28 H Blood Pressure [Le ft Arm] Blood Pressure [Ri ght Arm] Pulse Oximetry 91 Oxygen Delivery Me thod Room Air Oxygen Flow Rate Fraction of Inspir ed Oxygen Documenting provider has reviewed patient's vital signs: yes Labs Labs: Laboratory Results - last 24 hr 10/26/23 05:49 WBC 7.99 RBC 3.30 L Hgb 10.6 L Hct 34.4 L MCV 104 H MCH 32 MCHC 31 L RDW Coeff of Annabelle 15.2 Plt Count 299 Neut % (Auto) 67.5 Lymph % (Auto) 14.1 L [place] % (Auto) 10.5 Eos % (Auto) 6.1 Baso % (Auto) 0.4 Neut # (Auto) 5.39 Lymph # (Auto) 1.10 [place] # (Auto) 0.80 Eos # (Auto) 0.49 Baso # (Auto) 0.03 Abs Immat Gran (auto) 0.11 Imm/Tot Granulo (auto) 1.4 Sodium 141 Potassium 3.2 L Chloride 103 Carbon Dioxide 30 Anion Gap 8 BUN 44 H Creatinine 1.8 H Estimated Creat Clear 31.96 Estimated GFR 36 Glucose 109 Calcium 8.9 C-Reactive Protein 2.4 H NT-Pro-B Natriuret Pep [id number]
[2023-10-26 11:51] LABS: Legionella pneumo Ag Urine L. pneumo Negative (Negative); S pneumo Ag Urine S. pneumo Negative (Negative)
--- NOTE | 2023-10-26 17:29 | PC.NURSE ---
End of Shift: Patient pleasant and cooperative, A/O. Patient vitally stable, lungs course with expiratory wheezes, BS WNL, IV SL and intact. Patient SBA/Walker. Patient denies pain. Bilateral LE wound care performed. Patient urinating by urinal, no BM this shift. Patient up in chair all shift. Patient tolerating regular diet. Patient's blood sugars 109, 132, 140.
[2023-10-26] MEDS: 0.9 % SODIUM CHLORIDE 250 ml IV (20:38)
[2023-10-26] MEDS: INSULIN ASPART 100 UNIT/ML SUBCUT (20:39)
[2023-10-27] VITALS (7 sets, daily range): BP systolic 96–114; BP diastolic 56–83; PULSE 60–70; RESP 16–28; TEMP 36.6–36.8; O2SAT 90–96
[2023-10-27] MEDS: SODIUM CHLORIDE 0.9 % (FLUSH) 10 ML SYRINGE 5 ML IVF ×3 (02:08→21:07)
[2023-10-27] MEDS: PIPERACILLIN/TAZOBACTAM 2.25 GM in 0.9 % SODIUM CHLORIDE Mini-bag 100 ML IVPB ×4 (02:08→21:06)
[2023-10-27] MEDS: LEVOTHYROXINE 50 MCG TABLET PO (06:12)
--- NOTE | 2023-10-27 06:58 | PC.NURSE ---
End of shift [id number] ? Pt alert, oriented x 4, cooperative to care. Pt up with walker, gait belt, and standby assistance. Pt able to use urinal at bedside. Pt denies pain, SOB, nausea, dizziness. Tolerating RA, regular diet and fluids. Edema noted on bilat LE, AMINTA wraps in place. Dressings CDI. Pt observed to sleep during shift with CPAP from home. Pt up in chair at end of shift. ?
[2023-10-27 07:20] LABS: Chloride* 103 mmol/L (96-114); Potassium* 3.3 mmol/L (3.6-5.1); Sodium* 142 mmol/L (135-149)
[2023-10-27 07:23] LABS: Anion Gap 7 mEq/L (7-15); Blood Urea Nitrogen* 38 mg/dL (7-30); Carbon Dioxide* 32 mmol/L (20-32); Creatinine* 1.9 mg/dL (0.5-1.5); Est. Creatinine Clearance* 30.27; Estimated Glomerular Filt Rate 34 ml/min; Glucose* 94 mg/dL (60-115)
[2023-10-27 07:24] LABS: Calcium* 8.7 mg/dL (8.4-10.6)
[2023-10-27] MEDS: FUROSEMIDE 40 MG TABLET PO ×2 (07:45→14:14)
[2023-10-27] MEDS: POTASSIUM CHLORIDE 10 MEQ CAPSULE ER PO (07:45)
[2023-10-27] MEDS: AZITHROMYCIN 250 MG TABLET 500 MG PO (08:07)
[2023-10-27] MEDS: FLUTICASONE PROPIONATE NASAL 2 SPRAY NOSTRIL-B (09:05)
[2023-10-27] MEDS: APIXABAN 5 MG TABLET 1.25 MG PO ×2 (09:06→21:05)
[2023-10-27] MEDS: FENOFIBRATE 145 MG TABLET PO (09:06)
[2023-10-27] MEDS: GLIMEPIRIDE 1 MG TABLET 2 MG PO (09:07)
[2023-10-27] MEDS: AMIODARONE 200 MG TABLET PO (09:07)
[2023-10-27] MEDS: TAMSULOSIN HCL 0.4 MG CAPSULE PO (09:07)
[2023-10-27] MEDS: METOPROLOL SUCCINATE (XL) 50 MG TAB PO (09:07)
[2023-10-27] MEDS: OMEPRAZOLE 20 MG CAPSULE DR PO ×2 (09:07→16:52)
--- NOTE | 2023-10-27 09:53 | PM.IMPN1 ---
Progress Note: A&P Assessment and plan (1) Cellulitis: Problem details: Moderately ill with profound weakness, fever, elevated lactate, elevated white blood count, low blood pressure. Associated with left leg laceration as well as venous stasis skin changes on both legs. Clinically improving. Continue Zosyn until discharge on October 29 Status: Acute (2) Pneumonia: Problem details: Chest x-ray suspicious for pneumonia, hypoxia and sepsis. Continue Zosyn until discharge on October 29. Chest x-ray on October 26 still suggest pneumonia. Will give a treatment course of Zithromax until discharge on October 2910/27: Repeat chest x-ray 10/26/2023 showing small right pleural effusion, patchy bibasilar opacities, still concerning for pneumonia. Has remained afebrile, no new or worsening hypoxia. Would continue Zosyn and azithromycin Status: Acute (3) Sepsis: Problem details: Resolved On admission had fever, leukocytosis, elevated CRP, elevated lactate, elevated troponin, hypoxic respiratory failure, altered mental status Status: Acute (4) Bacteremia: Problem details: Blood cultures growing pansensitive Pseudomonas and Staph species that are probably contaminants. Continue Zosyn until discharge on October 29 Status: Acute (5) Hypoxic respiratory failure: Problem details: Resolved Possibly due to heart failure versus pneumonia. Antibiotics should appropriately treat pneumonia. Increased diuretic for heart failure. Chest x-ray more suggestive of pneumonia than heart failure. Has weaned off of oxygen Status: Acute (6) Congestive heart failure: Problem details: Contributor of hypoxia. Continue home diuresis cautiously due to low blood pressure. Hypoxia better but developing a contraction alkalosis. Increased furosemide from 40 mg daily to b.i.d. with increased potassium. Will need to closely monitor fluid and electrolyte status. -creatinine 1.9, continue to monitor -BUN downtrending 38, GFR stable 34, CO2 32 -potassium 3.3, increase oral replacement to 20 mEq b.i.d. -weight increased since admission, unchanged at 117 kg Status: Acute (7) Venous stasis ulcer: Problem details: With chronic venous insufficiency Right lower extremity ulcers may be traumatic or venous stasis with some associated cellulitis. Currently well managed and ulcers healing slowly. Status: Acute (8) Lymphedema: Problem details: Improved with compression wraps. Status: Acute (9) Elevated troponin: Problem details: Troponin stable. No chest pain. Likely due to chronic kidney disease, chronic heart disease with acute illness Status: Acute (10) Risk for falls: Problem details: PT and OT. SNF for rehab - will discharge to [facility] on Sunday Status: Acute (11) Weakness: Problem details: PT and OT. 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 Blood sugars have been well controlled so far Status: Acute (13) Atrial flutter: Problem details: Currently on half dose of normal renal dose anticoagulation, apixaban 1.25 mg twice daily. Continue that for now especially with antiplatelet therapy and risk for bleeding. Adequate rate control. Status: Acute (14) Hypertension: Problem details: Resumed home medications. Early on had low blood pressure due to sepsis. Now better Status: Acute (15) Obstructive sleep apnea: Problem details: Sleeping better with home CPAP Status: Acute Plan Continue in hospital for IV antibiotics, wound care, management of chronic kidney disease and chronic heart disease and pneumonia. Anticipate discharge to [facility] on October 29 for ongoing rehab Time Spent With Patient Total time spent: Total time spent caring for the patient today was 45 minutes. This includes time spent for the visit reviewing the chart, time spent during the visit, time spent after the visit and documentation and planning in coordination of care. Subjective Date Seen: 10/27/23 Interval history: Patient reports feeling pretty good this morning. Has no complaints or concerns. Denies headache or dizziness. Denies chest pain or shortness of breath. Continues on room air. Remains afebrile. Tolerating orals without nausea vomiting. Exam Narrative: Exam Narrative: PHYSICAL EXAM General: Pleasant, conversant, NAD HEENT: Normocephalic, atraumatic, sclera white, EOMI, oral mucosa moist Cardiovascular: RRR, S1S2. Pulmonary: CTA bilaterally without rhonchi, rales, expiratory wheezes. No dyspnea on room air Abdominal: Soft, nondistended, NTTP Neurological: Alert, answering questions appropriately, cranial nerves intact, no focal findings Extremities: No gross joint deformity or swelling. AROMI. Neurovascularly intact Skin: Warm, dry. Minimal erythema, receding from outline as drawn Const: Vital Signs, click to edit/add: Vital Signs - 24 hr 10/25/23 15:00 10/25/23 15:00 10/25/23 15:00 Temperature 98.2 F Pulse Rate [Left P ulse Oximeter] 73 73 Respiratory Rate 20 20 20 Blood Pressure [Le ft Arm] Blood Pressure [Ri ght Arm] 88/57 L Pulse Oximetry 91 91 Oxygen Delivery Me thod Nasal Cannula Nasal Cannula Oxygen Flow Rate 0.5 0.5 Fraction of Inspir ed Oxygen 20 20 10/25/23 19:00 10/25/23 22:35 10/25/23 22:35 Temperature 98.6 F Pulse Rate [Left P ulse Oximeter] 69 69 Respiratory Rate 20 20 Blood Pressure [Le ft Arm] Blood Pressure [Ri ght Arm] 106/60 Pulse Oximetry 94 89 Oxygen Delivery Me thod Nasal Cannula CPAP Oxygen Flow Rate 0.5 Fraction of Inspir ed Oxygen 10/25/23 22:35 10/26/23 03:00 10/26/23 07:48 Temperature 98.3 F 97.8 F Pulse Rate [Left P ulse Oximeter] 67 91 72 Respiratory Rate 20 20 28 H Blood Pressure [Le ft Arm] 112/65 Blood Pressure [Ri ght Arm] 123/76 Pulse Oximetry 89 91 91 Oxygen Delivery Me thod CPAP CPAP Room Air Oxygen Flow Rate Fraction of Inspir ed Oxygen 20 10/26/23 07:48 10/26/23 07:48 10/26/23 11:53 Temperature 97.4 F L Pulse Rate [Left P ulse Oximeter] 72 65 Respiratory Rate 28 H 28 H 26 H Blood Pressure [Le ft Arm] 103/53 L Blood Pressure [Ri ght Arm] Pulse Oximetry 91 94 Oxygen Delivery Me thod Room Air Room Air Oxygen Flow Rate Fraction of Inspir ed Oxygen Labs Labs: Laboratory Results - last 24 hr 10/26/23 10/26/23 05:49 11:00 WBC 7.99 RBC 3.30 L Hgb 10.6 L Hct 34.4 L MCV 104 H MCH 32 MCHC 31 L RDW Coeff of Annabelle 15.2 Plt Count 299 Neut % (Auto) 67.5 Lymph % (Auto) 14.1 L [place] % (Auto) 10.5 Eos % (Auto) 6.1 Baso % (Auto) 0.4 Neut # (Auto) 5.39 Lymph # (Auto) 1.10 [place] # (Auto) 0.80 Eos # (Auto) 0.49 Baso # (Auto) 0.03 Abs Immat Gran (auto) 0.11 Imm/Tot Granulo (auto) 1.4 Sodium 141 Potassium 3.2 L Chloride 103 Carbon Dioxide 30 Anion Gap 8 BUN 44 H Creatinine 1.8 H Estimated Creat Clear 31.96 Estimated GFR 36 Glucose 109 Calcium 8.9 C-Reactive Protein 2.4 H NT-Pro-B Natriuret Pep [id number] Urine L. pneumophilia Ag L. pneumo Negative Urine Strep pneumoniae Ag S. pneumo Negative
[2023-10-27] MEDS: INSULIN ASPART 100 UNIT/ML SUBCUT ×2 (17:03→21:07)
[2023-10-27] MEDS: POTASSIUM CHLORIDE 10 MEQ CAPSULE ER 20 MEQ PO (17:38)
--- NOTE | 2023-10-27 18:18 | PC.NURSE ---
Addendum entered by Brooke Pena RN 10/27/23 18:28: Bilateral wound cares performed. Original Note: End of Shift: Patient pleasant and cooperative. Patient vitally stable, lungs course, BS WNL, IV SL and intact. Patient denies pain. Patient SBA/walker. Patient used urinal to urinate at recliner. Patient had 1 BM this shift. Patient was on 0.5 L NS for a couple hours at sats were in mid 80's, patient now on room. Patient was fatigued after therapies today. Patient tolerating regular diet. Blood sugars 141 and 180.
[2023-10-28] MEDS: PIPERACILLIN/TAZOBACTAM 2.25 GM in 0.9 % SODIUM CHLORIDE Mini-bag 100 ML IVPB (02:15)
[2023-10-28 03:00] VITALS: BP 111/64; PULSE 71; RESP 20; TEMP 36.2; O2SAT 92
[2023-10-28] MEDS: OMEPRAZOLE 20 MG CAPSULE DR PO ×2 (06:08→16:47)
[2023-10-28] MEDS: LEVOTHYROXINE 50 MCG TABLET PO (06:08)
[2023-10-28 06:41] LABS: Hematocrit 34.8 % (37.0-53.0); Hemoglobin* 10.7 gm/dL (13.5-17.5); Mean Corpuscular HGB Conc 31 gm/dL (32-36); Mean Corpuscular Hemoglobin 32 pg (26-34); Mean Corpuscular Volume 106 fL (80-100); Platelet Count* 317 K/uL (140-440); White Blood Count* 9.09 K/uL (4.50-11.00)
[2023-10-28 06:48] LABS: Slide Review Reflex No
[2023-10-28 06:58] LABS: Chloride* 103 mmol/L (96-114); Potassium* 3.4 mmol/L (3.6-5.1); Sodium* 141 mmol/L (135-149)
[2023-10-28 07:00] LABS: Creatinine* 1.8 mg/dL (0.5-1.5); Est. Creatinine Clearance* 31.96; Estimated Glomerular Filt Rate 36 ml/min
[2023-10-28 07:01] LABS: Anion Gap 6 mEq/L (7-15); Blood Urea Nitrogen* 36 mg/dL (7-30); Calcium* 9.1 mg/dL (8.4-10.6); Carbon Dioxide* 32 mmol/L (20-32); Glucose* 76 mg/dL (60-115)
--- NOTE | 2023-10-28 07:14 | PC.NURSE ---
End of shift [id number] ? Pt alert, oriented, cooperative. Up to chair and back to bed with standby assistance and walker, gait belt. Pt able to use urinal at bedside. Pt denies nausea, dizziness, and SOB at rest. Observed to experience brief episodes of SOB with exertion with pt recovering quickly. Pt tolerating RA, regular diet, and fluids. Pt observed to sleep during shift using CPAP from home. Morning blood glucose reading indicated 73, pt denied symptoms of hypoglycemia. RN provided orange juice and rechecked BG reading with results of 89. Pt breakfast order submitted. Pt appears to be resting comfortably in chair at end of shift. ?
--- NOTE | 2023-10-28 07:29 | P.IMPN_ITS ---
Progress Note: A&P Assessment and plan (1) Cellulitis: Problem details: Moderately ill with profound weakness, fever, elevated lactate, elevated white blood count, low blood pressure. Associated with left leg laceration as well as venous stasis skin changes on both legs. Clinically improving. Continue Zosyn until discharge on October 2910/28: Peripheral IV came out today. In reviewing infectious disease consult note, recommendations were to complete a 7 day course (through 10/27) of IV pip- tazo which patient has done. No further antibiotics ordered. Status: Acute (2) Pneumonia: Problem details: Chest x-ray suspicious for pneumonia, hypoxia and sepsis. Continue Zosyn until discharge on October 29. Chest x-ray on October 26 still suggest pneumonia. Will give a treatment course of Zithromax until discharge on October 2910/27: Repeat chest x-ray 10/26/2023 showing small right pleural effusion, patchy bibasilar opacities, still concerning for pneumonia. Has remained afebrile, no new or worsening hypoxia. Would continue Zosyn and azithromycin 10/28: Patient has completed a 7 day course of IV antibiotics Status: Acute (3) Sepsis: Problem details: Resolved On admission had fever, leukocytosis, elevated CRP, elevated lactate, elevated troponin, hypoxic respiratory failure, altered mental status Status: Acute (4) Bacteremia: Problem details: Blood cultures growing pansensitive Pseudomonas and Staph species that are probably contaminants. Continue Zosyn until discharge on October 2910/28: Peripheral IV came out today. In reviewing infectious disease consult note, recommendations were to complete a 7 day course (through 10/27) of IV pip- tazo which patient has done. No further antibiotics ordered. Status: Acute (5) Hypoxic respiratory failure: Problem details: Resolved Possibly due to heart failure versus pneumonia. Antibiotics should appropriately treat pneumonia. Increased diuretic for heart failure. Chest x-ray more suggestive of pneumonia than heart failure. Has weaned off of oxygen Status: Acute (6) Congestive heart failure: Problem details: Contributor of hypoxia. Continue home diuresis cautiously due to low blood pressure. Hypoxia better but developing a contraction alkalosis. Increased furosemide from 40 mg daily to b.i.d. with increased potassium. Will need to closely monitor fluid and electrolyte status. -creatinine stable, continue to monitor -BUN downtrending, GFR/CO2 stable -potassium 3.4, increase oral replacement to 20 mEq b.i.d., continue to monitor -weight increased since admission, unchanged at 117 kg Status: Acute (7) Venous stasis ulcer: Problem details: With chronic venous insufficiency Right lower extremity ulcers may be traumatic or venous stasis with some associated cellulitis. Currently well managed and ulcers healing slowly. Status: Acute (8) Lymphedema: Problem details: Improved with compression wraps. Status: Acute (9) Elevated troponin: Problem details: Troponin stable. No chest pain. Likely due to chronic kidney disease, chronic heart disease with acute illness Status: Acute (10) Risk for falls: Problem details: PT and OT. SNF for rehab - will discharge to [facility] on Sunday Status: Acute (11) Weakness: Problem details: PT and OT. 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 Blood sugars have been well controlled so far Status: Acute (13) Atrial flutter: Problem details: Currently on half dose of normal renal dose anticoagulation, apixaban 1.25 mg twice daily. Continue that for now especially with antiplatelet therapy and risk for bleeding. Adequate rate control. Status: Acute (14) Hypertension: Problem details: Resumed home medications. Early on had low blood pressure due to sepsis. Now better Status: Acute (15) Obstructive sleep apnea: Problem details: Sleeping better with home CPAP Status: Acute Plan discharge to [facility] on October 29 for ongoing rehab Time Spent With Patient Total time spent: Total time spent caring for the patient today was 45 minutes. This includes time spent for the visit reviewing the chart, time spent during the visit, time spent after the visit and documentation and planning in coordination of care. Subjective Date Seen: 10/28/23 Interval history: Patient continues to do well today. Has no complaints or concerns. Denies headache or dizziness. Denies chest pain shortness a breath. Tolerating orals without nausea vomiting. Anticipating discharge to [facility] Sunday10/29/23 Exam Narrative: Exam Narrative: PHYSICAL EXAM General: Pleasant, conversant, NAD HEENT: Normocephalic, atraumatic, sclera white, EOMI, oral mucosa moist Cardiovascular: RRR, S1S2. Pulmonary: CTA bilaterally without rhonchi, rales, expiratory wheezes. No dyspnea on room air Abdominal: Soft, nondistended, NTTP Neurological: Alert, answering questions appropriately, cranial nerves intact, no focal findings Extremities: No gross joint deformity or swelling. AROMI. Neurovascularly intact Skin: Warm, dry Const: Vital Signs, click to edit/add: Vital Signs - 24 hr 10/26/23 19:00 10/26/23 23:00 10/26/23 23:57 Temperature 98.0 F Pulse Rate [Left P ulse Oximeter] 65 51 L Respiratory Rate 20 20 20 Blood Pressure [Le ft Arm] 106/78 Pulse Oximetry 94 94 94 Oxygen Delivery Me thod Room Air Room Air CPAP Room Air Oxygen Flow Rate 10/27/23 04:27 10/27/23 07:48 10/27/23 07:48 Temperature 98 F Pulse Rate [Left P ulse Oximeter] 70 69 69 Respiratory Rate 20 16 16 Blood Pressure [Le ft Arm] 112/66 109/58 L Pulse Oximetry 90 90 Oxygen Delivery Me thod Room Air CPAP Room Air Oxygen Flow Rate 10/27/23 07:48 10/27/23 11:42 10/27/23 15:00 Temperature 97.9 F 98 F Pulse Rate [Left P ulse Oximeter] 64 69 Respiratory Rate 16 28 H 24 Blood Pressure [Le ft Arm] 109/60 96/56 L Pulse Oximetry 90 90 92 Oxygen Delivery Me thod Room Air Nasal Cannula Room Air Oxygen Flow Rate 0.5 10/27/23 15:00 10/27/23 15:00 10/27/23 15:01 Temperature Pulse Rate [Left P ulse Oximeter] 67 67 Respiratory Rate 24 24 Blood Pressure [Le ft Arm] 102/56 L Pulse Oximetry 92 Oxygen Delivery Me thod Room Air Oxygen Flow Rate Labs Labs: Laboratory Results - last 24 hr 10/27/23 05:45 Sodium 142 Potassium 3.3 L Chloride 103 Carbon Dioxide 32 Anion Gap 7 BUN 38 H Creatinine 1.9 H Estimated Creat Clear 30.27 Estimated GFR 34 Glucose 94 Calcium 8.7
[2023-10-28 07:50] VITALS: BP 102/45; PULSE 69; RESP 28; TEMP 36.3; O2SAT 90
[2023-10-28] MEDS: POTASSIUM CHLORIDE 10 MEQ CAPSULE ER 20 MEQ PO ×3 (07:54→17:58)
[2023-10-28] MEDS: FUROSEMIDE 40 MG TABLET PO ×2 (07:55→13:50)
[2023-10-28] MEDS: AZITHROMYCIN 250 MG TABLET 500 MG PO (08:01)
[2023-10-28] MEDS: FLUTICASONE PROPIONATE NASAL 2 SPRAY NOSTRIL-B (09:18)
[2023-10-28] MEDS: APIXABAN 5 MG TABLET 1.25 MG PO ×2 (09:18→21:16)
[2023-10-28] MEDS: TAMSULOSIN HCL 0.4 MG CAPSULE PO (09:19)
[2023-10-28] MEDS: AMIODARONE 200 MG TABLET PO (09:19)
[2023-10-28] MEDS: GLIMEPIRIDE 1 MG TABLET 2 MG PO (09:20)
[2023-10-28] MEDS: METOPROLOL SUCCINATE (XL) 50 MG TAB PO (09:20)
[2023-10-28] MEDS: SODIUM CHLORIDE 0.9 % (FLUSH) 10 ML SYRINGE 5 ML IVF (09:21)
[2023-10-28] MEDS: FENOFIBRATE 145 MG TABLET PO (09:23)
[2023-10-28 11:00] VITALS: BP 105/62; PULSE 66; RESP 24; TEMP 36.7; O2SAT 90
[2023-10-28] MEDS: NYSTATIN CREAM 30 GM 1 APPLIC TOPICAL ×2 (13:50→21:16)
--- NOTE | 2023-10-28 14:03 | PM.DS1 ---
DS: Providers Provider Date Seen: 10/29/23 Date of admission: 10/21/23 14:39 Primary care physician: Juan José Licona MD Admitting Clinician: Sofia Florez MD Consults: 10/21/23 04:54 Consult to Physical Therapy [CONS] Routine Comment: Reason(s) for PT Consult:: Evaluate and Treat Any Restrictions?:: No Restrictions Consult to Carbon Setter [CONS] Routine Comment: Reason for Consult:: Discharge Planning Needs 10/21/23 04:58 Consult to Occupational Therapy [CONS] Routine Comment: Reason(s) for OT Consult:: Evaluate and Treat Any Restrictions?:: No Restrictions 10/21/23 05:04 Consult to Physician [CONS] Routine Comment: Consulting Provider: General Surgery, [facility] Has provider been notified: No 10/21/23 05:36 Consult to Occupational Therapy [CONS] Routine Comment: Reason(s) for OT Consult:: Evaluate and Treat Any Restrictions?:: No Restrictions Consult to Physical Therapy [CONS] Routine Comment: Reason(s) for PT Consult:: Evaluate and Treat Any Restrictions?:: No Restrictions 10/22/23 08:05 Consult to Wound Care [CONS] Routine Comment: Consulting Provider: Krysten Foss 10/24/23 09:54 Consult to Infectious Diseases [CONS] Routine Comment: Consulting Provider: [facility] Consult priority: Urgent Has provider been notified: No Call back required?: Yes Attending Physician on discharge: LI Marcos PA-C [facility] Date of Discharge: 10/29/23 DS: Diagnosis Discharge Diagnosis (1) Cellulitis: Status: Acute Problem details: Moderately ill with profound weakness, fever, elevated lactate, elevated white blood count, low blood pressure. Associated with left leg laceration as well as venous stasis skin changes on both legs. Clinically improving. Continue Zosyn until discharge on October 29 Peripheral IV fell out after completing 7 day course of IV antibiotics. In reviewing ID note, no further antibiotics warranted. (2) Pneumonia: Status: Acute Problem details: Chest x-ray suspicious for pneumonia, hypoxia and sepsis. Continue Zosyn until discharge on October 29. Chest x-ray on October 26 still suggest pneumonia. Will give a treatment course of Zithromax until discharge on October 2910/27: Repeat chest x-ray 10/26/2023 showing small right pleural effusion, patchy bibasilar opacities, still concerning for pneumonia. Has remained afebrile, no new or worsening hypoxia. Patient has completed a 7 day course of IV antibiotics (3) Sepsis: Status: Acute Problem details: Resolved On admission had fever, leukocytosis, elevated CRP, elevated lactate, elevated troponin, hypoxic respiratory failure, altered mental status (4) Bacteremia: Status: Acute Problem details: Blood cultures growing pansensitive Pseudomonas and Staph species that are probably contaminants. Peripheral IV follow-up. In reviewing infectious disease consult note, recommendations were to complete a 7 day course (through 10/27) of IV pip-tazo which patient has done. No further antibiotics ordered. (5) Hypoxic respiratory failure: Status: Acute Problem details: Possibly due to heart failure versus pneumonia. Antibiotics should appropriately treat pneumonia. Increased diuretic for heart failure. Chest x-ray more suggestive of pneumonia than heart failure. Patient initially weaned to room air however noted to dropped to mid 80s with ambulation throughout we can. Recommendations for 1 L oxygen supplementation to maintain saturations > 88% on discharge. Continue to wean as able. (6) Congestive heart failure: Status: Acute Problem details: Contributor of hypoxia. Continue home diuresis cautiously due to low blood pressure. Hypoxia better but developing a contraction alkalosis. Increased furosemide from 40 mg daily to b.i.d. with increased potassium. Metolazone was held. Creatinine essentially remained stable, 2.0 on day of discharge. BUN improved, GFR/CO2 stable. Weight without notable decrease. On discharge, resumed furosemide 40 mg once daily with resumption of home dose of metolazone. Will need CLOSE outpatient follow-up for medication management in setting of renal disease. (7) Venous stasis ulcer: Status: Acute Problem details: With chronic venous insufficiency Right lower extremity ulcers may be traumatic or venous stasis with some associated cellulitis. Currently well managed and ulcers healing slowly. Continue daily wound cares. (8) Lymphedema: Status: Acute Problem details: Improved with compression wraps. (9) Latent autoimmune diabetes in adults, managed as type 2: Status: Acute Problem details: With neuropathy Continued on home medications, diabetic diet recommendations. Blood sugars remain well controlled. (10) Atrial flutter: Status: Acute Problem details: Continued on renal dose anticoagulation, apixaban 1.25 mg twice daily. Continue that for now especially with antiplatelet therapy and risk for bleeding. Adequate rate control. (11) Hypertension: Status: Acute Problem details: Continued on home medications (12) Obstructive sleep apnea: Status: Acute Problem details: Continued on home CPAP (13) Dermatitis: Status: Acute Problem details: Intertriginous, buttock folds. Recurrent. Continue Nystatin cream to area bid until resolved. Keep clean and dry DS: Summary Hospital Course Hospital Course: [age] year old male past medical history significant for CKD, diabetes mellitus with neuropathy, CARLO, venous insufficiency, lymphedema, hypertension, hyperlipidemia, hypothyroidism was admitted to the medical floor for sepsis bacteremia, cellulitis. Course of care and details as noted above. Patient completed 7 day course of IV antibiotics appropriate for coverage of Pseudomonas aeruginosa and Staphylococcus. Infectious Disease was consulted. Discharged with 1 L supplemental oxygen per nasal cannula to maintain saturations > 88% with instructions to continue to wean as able. Will need close follow-up for ongoing management heart failure and renal disease. Repeat BMP this week. Patient is discharged to [facility] for ongoing short-term rehabilitation. Remainder of chronic medical comorbidities were monitored and managed with home medications. Status at Discharge Overall status at discharge: patient is progressing back to baseline Time Spent with Patient Time attestation: Total time spent providing and/or coordinating discharge services: Time spent: Greater than 30 minutes Exam Narrative: Exam Narrative: PHYSICAL EXAM General: Pleasant, conversant, NAD Cardiovascular: RRR Pulmonary: No dyspnea Neurological: Alert, answering questions appropriately Skin: Warm, dry. Const: Vital Signs, click to edit/add: Vital Signs - 24 hr 10/27/23 15:00 10/27/23 15:00 10/27/23 15:00 Temperature 98 F Pulse Rate [Left P ulse Oximeter] 69 67 Respiratory Rate 24 24 24 Blood Pressure [Le ft Arm] 96/56 L Pulse Oximetry 92 92 Oxygen Delivery Me thod Room Air Room Air 10/27/23 15:01 10/27/23 19:43 10/27/23 23:00 Temperature 98.2 F Pulse Rate [Left P ulse Oximeter] 67 60 Respiratory Rate 16 20 Blood Pressure [Le ft Arm] 102/56 L 114/83 Pulse Oximetry 93 96 Oxygen Delivery Me thod Room Air CPAP 10/27/23 23:00 10/28/23 03:00 10/28/23 07:50 Temperature 97.2 F L 97.3 F L Pulse Rate [Left P ulse Oximeter] 63 71 69 Respiratory Rate 20 20 28 H Blood Pressure [Le ft Arm] 111/64 102/45 L Pulse Oximetry 96 92 90 Oxygen Delivery Me thod CPAP Room Air Room Air 10/28/23 07:50 10/28/23 07:50 10/28/23 11:00 Temperature 98.1 F Pulse Rate [Left P ulse Oximeter] 69 66 Respiratory Rate 28 H 28 H 24 Blood Pressure [Le ft Arm] 105/62 Pulse Oximetry 90 90 Oxygen Delivery Me thod Room Air Room Air DS: Data Data Completed and Pending Labs on day of discharge: Labs from last 24 hours 10/28/23 05:40 WBC 9.09 RBC 3.30 L Hgb 10.7 L Hct 34.8 L MCV 106 H MCH 32 MCHC 31 L Plt Count 317 Sodium 141 Potassium 3.4 L Chloride 103 Carbon Dioxide 32 Anion Gap 6 L BUN 36 H Creatinine 1.8 H Estimated Creat Clear 31.96 Estimated GFR 36 Glucose 76 Calcium 9.1 Preliminary micro results at discharge 10/24/23 05:33 Blood Culture - Preliminary Blood NO GROWTH AFTER 96 HOURS Discharge Plan Discharge Disposition: Xfer SNF Discharge Location: [facility] Date of Admission: 10/21/23 14:39 Attending Provider on Discharge: Leonora Paredes Consulting Providers: Rachel Lima; Chas Loco; Michelle Pillia; Krysten Foss; Ann Marie Mccracken; Mimi Belle; Veronica Coe; John Sanderson; Elvin Tracy; Lexie Kee; Alondra Goldberg Primary Care Provider: Juan José Licona Condition: Stable Anticipated Discharge Date/Time: 10/29/23 11:45 Discharge Medications: New potassium chloride 10 mEq Capsule, Extended Release 20 meq PO BIDWM Qty: 120 0RF levothyroxine 50 mcg Tablet 50 mcg PO DAILY Qty: 30 0RF nystatin 100,000 unit/gram Cream 1 applic topical TID Qty: 30 0RF Continued metoprolol succinate 50 mg tablet extended release 24 hr 50 mg PO DAILY Eliquis 2.5 mg tablet 1.25 mg PO BID insulin glargine [Lantus Solostar U-100 Insulin] 100 unit/mL (3 mL) insulin pen 14 unit subcut DAILY tramadol 50 mg tablet See Rx Instructions PO Q6H PRN (Reason: pain) Qty: 120 2RF Rx Instructions: 1-2 tabs Q6H prn orally every 6 hours PRN; acetaminophen 500 mg tablet 1,000 mg PO TID PRN furosemide 40 mg tablet 40 mg PO DAILY loratadine [Allergy Relief (loratadine)] 10 mg tablet 10 mg PO DAILY PRN amiodarone 200 mg tablet 200 mg PO DAILY nitroglycerin 0.4 mg tablet, sublingual 0.4 mg sublingual ONCE PRN Rx Instructions: as a single dose; administer 5-10 minutes before situation known to precipitate angina attack atorvastatin 20 mg tablet 20 mg PO HS levothyroxine 50 mcg tablet 50 mcg PO DAILY fluticasone propionate 50 mcg/actuation spray,suspension 2 spray intranasal DAILY Rx Instructions: administer into each nostril acyclovir 400 mg tablet 400 mg PO TID Qty: 42 3RF tamsulosin 0.4 mg capsule See Rx Instructions .ROUTE .COMPLEX Qty: 90 3RF Dose Instruction: TAKE 1 CAPSULE DAILY Rx Instructions: TAKE 1 CAPSULE DAILY glimepiride 2 mg tablet 2 mg PO DAILY Qty: 90 3RF fenofibrate 160 mg tablet 160 mg PO DAILY Qty: 90 0RF Rx Instructions: WITH FOOD omeprazole 20 mg capsule,delayed release(DR/EC) 20 mg PO BID Qty: 180 0RF Rx Instructions: TAKE ONE CAPSULE BY MOUTH TWICE A DAY BEFORE MEALS metolazone 2.5 mg tablet 2.5 mg PO 3XW Qty: 60 3RF No Action (DME) pen needle, diabetic [Pen Needle] 31 gauge x 5/16 needle See Rx Instructions .Route Qty: 100 2RF Rx Instructions: TO USE WITH LANTUS PEN ONCE DAILY (DME) Contour Next Test Strips Strip See Rx Instructions .ROUTE .COMPLEX Qty: 100 3RF Dose Instruction: USE TO TEST BLOOD SUGAR ONCE DAILY Rx Instructions: USE TO TEST BLOOD SUGAR ONCE DAILY Discharge Orders: Discharge Order (Routine); Ordered 10/29/23 Ordered By: Leonora Paredes Additional Instructions: Completed 7 day course of antibiotics for cellulitis and pneumonia. WILL NEED OXYGEN 1L PER NASAL CANNULA TO MAINTAIN SATURATIONS >88% UPON ADMISSION TO SNF. WEAN ABLE. PT/OT Outpatient follow up with PCP for close monitoring heart failure and renal disease. Will need recheck BMP Activity Level: Activity as Tolerated, Up with assist and Use Walker Discharge Diet: Diabetic Follow Up Appointments: Juan José Licona MD [Primary Care Provider] - 11/09/23 10:15 am (FOLLOW UP AT [facility] Post hospital follow up -bacteremia, cellulitis, pneumonia, acute oxygen need. Ongoing management of renal disease, heart failure. RECHECK BMP) Forms: [facility] Info Instructions Wound Care: Nystatin cream to buttocks fold bid until redness resolves. Lower extremities: Vaseline gauze to wounds, cover with Kerlix or gauze, wrap with compression wraps/Sourav. Daily Admit to: SNF Discharge Potential: Good Length of Stay: <30 days Can use facility standing orders?: Yes Code Status: Full Code Rehab Potential: Good Therapy: Physical Therapy and Occupational Therapy Therapy Orders: Evaluate and Treat Therapy Orders Additional Information: Wound cares Oxygen: Yes Oxygen Delivery Method: Nasal Cannula Oxygen Flow Rate: 1 L to maintain saturations > 88% Urinary Catheter: No Orders are good >30 days: No Signature: LI Marcos, PA-[facility] Hospitalist
[2023-10-28 15:22] VITALS: BP 119/55; PULSE 57; RESP 28; TEMP 31.1; O2SAT 90
[2023-10-28] MEDS: INSULIN ASPART 100 UNIT/ML SUBCUT ×2 (16:50→21:16)
--- NOTE | 2023-10-28 18:17 | PC.NURSE ---
End of Shift: Patient pleasant and cooperative. Patient vitally stable, lungs course, BS WNL, IV infiltrated, NO IV. Patient denies pain. Patient SBA/walker. Buttock reddened barrier cream and nystatin applied, and patient now sitting on cushion. Patient tolerating regular diet, blood sugars, 146 and 175. Patient urinating and had 2 BMs.
[2023-10-28 19:00] VITALS: BP 117/57; PULSE 60; RESP 20; TEMP 37.1; O2SAT 92
[2023-10-28 23:00] VITALS: BP 94/72; PULSE 64; RESP 20; TEMP 36.3; O2SAT 95
[2023-10-29] MEDS: OMEPRAZOLE 20 MG CAPSULE DR PO (06:11)
[2023-10-29] MEDS: LEVOTHYROXINE 50 MCG TABLET PO (06:11)
[2023-10-29 06:35] LABS: Chloride* 101 mmol/L (96-114); Potassium* 3.8 mmol/L (3.6-5.1); Sodium* 140 mmol/L (135-149)
[2023-10-29 06:38] LABS: Anion Gap 8 mEq/L (7-15); Carbon Dioxide* 31 mmol/L (20-32); Est. Creatinine Clearance* 28.76; Estimated Glomerular Filt Rate 32 ml/min
[2023-10-29 06:39] LABS: Blood Urea Nitrogen* 37 mg/dL (7-30); Calcium* 9.1 mg/dL (8.4-10.6); Glucose* 90 mg/dL (60-115)
[2023-10-29 07:00] VITALS: PULSE 62; RESP 18; O2SAT 92
--- NOTE | 2023-10-29 07:49 | PC.NURSE ---
End of shift [id number] ? Pt alert, oriented, cooperative. Up to chair and back to bed with standby assistance and walker, gait belt. Pt able to use urinal at bedside. Pt denies nausea, dizziness, and SOB at rest. Pt tolerating RA, regular diet, and fluids. Pt denied pain, but reported that his legs felt itchy. RN re-wrapped AMINTA wraps on bilateral LE with pt reporting improved comfort. Redness on L buttock observed to decrease with introduction of ordered cream from NOV. Pt reported feeling relief since intervention introduced. Pt observed to sleep during shift using CPAP from home. Pt appears to be resting comfortably in chair at end of shift. ?
[2023-10-29] MEDS: POTASSIUM CHLORIDE 10 MEQ CAPSULE ER 20 MEQ PO (08:03)
[2023-10-29] MEDS: FUROSEMIDE 40 MG TABLET 20 MG PO (08:04)
[2023-10-29 08:07] VITALS: BP 102/57; PULSE 64; RESP 18; O2SAT 91
[2023-10-29] MEDS: FENOFIBRATE 145 MG TABLET PO (09:07)
[2023-10-29] MEDS: TAMSULOSIN HCL 0.4 MG CAPSULE PO (09:07)
[2023-10-29] MEDS: GLIMEPIRIDE 1 MG TABLET 2 MG PO (09:07)
[2023-10-29] MEDS: APIXABAN 5 MG TABLET 1.25 MG PO (09:08)
[2023-10-29] MEDS: METOPROLOL SUCCINATE (XL) 50 MG TAB PO (09:08)
[2023-10-29] MEDS: FLUTICASONE PROPIONATE NASAL 2 SPRAY NOSTRIL-B (09:09)
[2023-10-29] MEDS: AMIODARONE 200 MG TABLET PO (09:10)
--- NOTE | 2023-10-29 10:21 | PC.SOCIAL ---
Discharge planning- Per MD, pt is medically cleared to discharge. Pt will go to [facility] for rehab. Pt's provided verbal authorization to transport pt via non-emergency EMS. Pt will discharge at 12:30 pm. Provided update to Laura Perez at [facility]. Completed Preadmission Screen. Confirmation #[id number]. Social work will follow up as needed.
[2023-10-29 11:14] VITALS: BP 125/61; PULSE 62; RESP 18; TEMP 36.6; O2SAT 92
[2023-10-29] MEDS: NYSTATIN CREAM 30 GM 1 APPLIC TOPICAL (12:37)
--- NOTE | 2023-10-29 14:19 | PC.NURSE ---
shift note: nurse to nurse given this a.m to Amanda RN via phone at [facility]. No IV on dc. BP stable. pt sob with sats 85% with activity. 1Lpnc O2 applied with sats returning to 91-92% in [address] Paredes notified and O2 ordered for SNF [place]. bilat wounds changed per D.O. LS with fine crkls bibasilary. pt had BM.
== END 2023-10-29 14:00 | DRG 871 ==
LOC: ED 10-21 03:10 → MEDSURG 10-21 03:58
PROVIDERS: Internal Medicine; Physician Assistant; Admitting Provider Family Medicine; Emergency Provider Family Medicine; PCP Family Medicine; Visit Provider Family Medicine
DX: A41.9 Sepsis, unspecified organism (principal); I50.31 Acute diastolic (congestive) heart failure; J18.9 Pneumonia, unspecified organism; J96.01 Acute respiratory failure with hypoxia; L03.116 Cellulitis of left lower limb; L03.115 Cellulitis of right lower limb; E11.52 Type 2 diabetes mellitus with diabetic peripheral angiopathy with gangrene; I83.218 Varicose veins of right lower extremity with both ulcer of other part of lower extremity and inflammation; I83.228 Varicose veins of left lower extremity with both ulcer of other part of lower extremity and inflammation; L97.811 Non-pressure chronic ulcer of other part of right lower leg limited to breakdown of skin; L97.821 Non-pressure chronic ulcer of other part of left lower leg limited to breakdown of skin; I96 Gangrene, not elsewhere classified; I48.92 Unspecified atrial flutter; I13.0 Hypertensive heart and chronic kidney disease with heart failure and stage 1 through stage 4 chronic kidney disease, or unspecified chronic kidney disease; I25.10 Atherosclerotic heart disease of native coronary artery without angina pectoris; Z79.01 Long term (current) use of anticoagulants; E11.40 Type 2 diabetes mellitus with diabetic neuropathy, unspecified; Z79.4 Long term (current) use of insulin; S81.812A Laceration without foreign body, left lower leg, initial encounter; Z91.81 History of falling; I87.8 Other specified disorders of veins; R79.89 Other specified abnormal findings of blood chemistry; D64.9 Anemia, unspecified; E11.21 Type 2 diabetes mellitus with diabetic nephropathy; G47.33 Obstructive sleep apnea (adult) (pediatric); B95.61 Methicillin susceptible Staphylococcus aureus infection as the cause of diseases classified elsewhere; I89.0 Lymphedema, not elsewhere classified; N18.30 Chronic kidney disease, stage 3 unspecified; E11.22 Type 2 diabetes mellitus with diabetic chronic kidney disease; L30.8 Other specified dermatitis; L30.4 Erythema intertrigo
CPT/HCPCS: 36415; 51798; 71045; 71046; 80048; 80076; 81001; 82803; 82962; 83605; 83735; 83880; 84484; 85025; 85027; 85379; 86140; 87040; 87070; 87081; 87086; 87186; 87449; 87631; 87899; 93005; 93306; 97110; 97116; 97161; 97165; 97530; 97535; 97597; 97598; 99284; 99285; 99291; G0463; A9270; G0378; J0696; J1940; J2543; J3370; J7030; J7050

== ENCOUNTER 2023-10-29 14:34 | Outpatient (CLI) | payer MEDICARE, BC, SELFPAY ==
--- OUTSIDE RECORDS SUMMARY | 2023-10-30 11:40 | XMS_ITS | Referral Summary ---
Author Name Unknown Organization [place] Address [address] [facility] [facility] [place] [address] Care Team Providers Care Applications Coordinator Name Role Phone Graham Licona MD Primary Care Provider [phone] Trudi Grayson APRN TECHNICAL ASSISTANCE CONSULTANT Unavailable [phone] Steven Canchola MD Unavailable + Encounters Date Type Department Care Team Description 09/13/[address] 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 Place 1 tablet [...] Comments Blood Pressure 104/66 09/28/2022 12:58 PM MANAGER OF [facility]IED [facility] Pulse 64 09/28/2022 12:58 PM MANAGER OF [facility] Temperature 36.6 ??C (97.9 ??F) 07/04/2021 12:03 PM C DT Respiratory Rate 16 07/04/2021 4:00 PM CDT Oxygen Saturation 97% 09/28/2022 12:58 PM MANAGER OF [facility] Inhaled Oxygen Concentration - - Weight 111.1 kg (245 lb) 09/28/2022 12:58 PM MANAGER OF [facility] Height 180.3 cm (5' 11) 09/28/2022 12:58 PM MANAGER OF [facility] Body Mass Index 34.17 09/28/2022 12:58 PM MANAGER OF [facility] Plan of Treatment Upcoming Encounters Date Type Department Care Team (Late st Contact Info) Description 12/19/2023 9:45 AM CDT Office Visit [facility] Heart [facility] [address] [place] [address] Trudi Grayson, CONSUMER AFFAIRS SPECIALIST TECHNICAL ASSISTANCE CONSULTANT [address] [id number] Steven Canchola MD [address] [place] [address] 12/27/2023 Ancillary Procedure [facility] [address] [place] [address] Chris De Leon MD [address] [place] [id number] Medical Devices Implanted Type Area Brass Cleaner Device Identifier Shelf Expiration Date Model / Serial / Lot Icd Resonate El Vr Df4 - [id number] Implanted:Qty : 1 on 07/04/2021 at [facility] ICD [employer] 09/09/2021 D432 / [id number] / [id number] Lead Wires- Right Atrium-02/04/20 16 Implanted:03/2016 by Timothy Smith MD (Quantity not on file) Explanted:12/2020 (Quantity not on file) Lead Wires- Right Atrium [employer] 2087TC-52 / [id number] / Lead Wires- Right Ventricle-02/03 Implanted:03/2016 by Timothy Smith MD (Quantity not on file) Explanted:12/2020 (Quantity not on file) Lead Wires- Right Ventricle [employer] 8TC-58 / [id number] / Lead [place] Endotak Df4 Af 59 Cm 0272 - [id number] Implanted:Qty : 1 on 07/04/2021 at [facility] Leads [employer] 04/07/2023 0272 / [id number] / [id number] Pacemaker-Dino Sci Implanted:03/2016 by Timothy Smith MD (Quantity not on file) Explanted:12/2020 (Quantity not on file) Pacemaker [employer] G[address] L121 / [id number] / Procedures Procedure Name Priority Date/Time Associated Diagnosis Comments INTERROGATION DEVICE EVAL REMOTE ICD UP TO 90 Routine 09/13/2023 11:52 AM MANAGER OF [facility] Sustained VT (ventricular tachycardia) (H) ICD (implantable cardioverter-defib 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 from Last 3 Months Results * INTERROGATION DEVICE EVAL REMOTE ICD UP TO 90 (09/13/2023 11:52 AM MANAGER OF [facility]) Date Time Interrogation Session [id number] [employer] Implantable Pulse Generator Brass Cleaner [employer] Implantable Pulse Generator Model D432 RESONATE EL ICD [employer] Implantable Pulse Generator Serial Number [id number] [employer] Type Interrogation Session Remote Scheduled [facility] Clinic Name [facility] [facility] Implantable Pulse Generator Type Defibrillator [employer] Implantable Pulse Generator Implant Date 20210704 [employer] Implantable Lead Brass Cleaner [employer] Implantable Lead Model 0272 Endotak [place] 4-Site S [employer] Implantable Lead Serial Number [id number] [employer] Implantable Lead Implant Date 20210704 [employer] Implantable Lead Polarity Type Bipolar Lead [employer] Implantable Lead Location Detail 1 UNKNOWN [employer] Implantable Lead Location Right Ventricle [employer] Implantable Lead Connection Status Connected [employer] Brandon Setting Mode (NBG Code) VVIR [employer] [place] Setting Lower Rate Limit 50 {beats}/ min [...] ms [employer]IC Battery Date Time of Measurements [id number] [employer] Battery Status Beginning of Service [employer] Battery Remaining Longevity 150 mo [employer] Battery Remaining Percentage 100 % [employer] Capacitor Charge Type Reformation [employer] Capacitor Last Charge Date Time [id number] [employer] Capacitor Charge Time 8.9 s MEDTR[employer]IC Capacitor Charge Type Shock [employer] Capacitor Last Charge Date Time [id number] [employer] Capacitor Charge Time 6.8 s MEDTR[employer]IC Capacitor Charge Energy 41 J [employer]IC Brandon Statistic Date Time Start [id number] [employer] Brandon Statistic Date Time End MEDTRONIC [...] [employer]IC Therapy Statistic Total Date Time End [id number] [employer] Episode Statistic Recent Count 0 MEDTRONIC [...] MEDTRONIC Episode Statistic Recent Date Time Start [id number] [employer] Episode Statistic Recent Date Time End [id number] [employer] Episode Statistic Recent Date Time Start [id number] [employer] Episode Statistic Recent Date Time End [id number] [employer]TRONIC Episode Statistic Recent Date Time Start [id number] [employer] Episode Statistic Recent Date Time End [employer]IC Episode Identifier [id number] [employer] Episode Type Category Periodic EGM [employer] Episode Date Time [id number] [employer] Episode Identifier [id number] [employer] Episode Type Category Other [employer]IC Episode Date Time [id number] [employer] Anatomical Region Laterality Modality Other 09/13/2023 12:4 1 AM MANAGER OF [facility] Narrative 09/25/2023 10:41 AM MANAGER OF [facility] SERVICES [employer] Resonate (S) ICD Remote Device Check FORMULATOR: 17 % ?? Mode: VVIR 50-130 ?? Presenting Rhythm: VS with occasional FORMULATOR ?? Historical Underlying Rhythm: AF 60-80's bpm [...] of VT with ATP - Essentio PPM (4114-8641): sustained VT, prompted upgrade to ICD Care Plan: meets all criteria for q2yr thresholds, will be due 08/2024. Scheduled remote in 3 months. ??OV with Dr. Canchola on 12/19/2023. Sent results and plan via [employer]. EC RN I have reviewed and interpreted the device interrogation, settings, programming and nurse's summary. The device is functioning within normal device parameters. I agree with the current findings, assessment and plan. Chris Hinds MD [facility] ORDERABLES from Last 3 Months Advance Directives For more information, please contact: [phone] Latest Code Status on File Code Status Date Activated Date Inactivated Comments Full Code 02/04/2016 9:52 AM 07/04/2021 11:49 AM Code Status History Code Status Date Activated Date Inactivated Comments Full Code 02/02/2016 9:20 PM 02/04/2016 9:52 AM Full Code 02/01/2012 2:37 PM 02/04/2012 6:16 PM Care Teams Applications Coordinator Relationship Specialty Start Date End Date Graham Licona MD [facility] [address] [place] [address] PCP - General Family Medicine 06/30/21 Trudi Grayson APRN TECHNICAL ASSISTANCE CONSULTANT [address] [address] Assigned Heart and Vascular Provider 10/07/22 Steven Canchola MD [address] [place] [address] Cardiovascular Disease 07/12/23
--- OUTSIDE RECORDS SUMMARY | 2023-10-30 11:40 | XMS_ITS | Clinical Summary ---
Author Name Unknown Organization [place] Address [facility] 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 [address] [place] [phone] Eve Santos, SIENNA from Last 3 Months [...] Comments Blood Pressure 104/66 09/28/2022 12:58 PM GUIDANCE ADVISER Pulse 64 09/28/2022 12:58 PM GUIDANCE ADVISER Temperature 36.6 ??C (97.9 ??F) 07/04/2021 12:03 PM C DT Respiratory Rate 16 07/04/2021 4:00 PM CDT Oxygen Saturation 97% 09/28/2022 12:58 PM GUIDANCE ADVISER Inhaled Oxygen Concentration - - Weight 111.1 kg (245 lb) 09/28/2022 12:58 PM GUIDANCE ADVISER Height 180.3 cm (5' 11) 09/28/2022 12:58 PM GUIDANCE ADVISER Body Mass Index 34.17 09/28/2022 12:58 PM GUIDANCE ADVISER Plan of Treatment Upcoming Encounters Date Type Department Care Team (Late st Contact Info) Description 12/19/2023 9:45 AM CDT Office Visit [facility] [address] [place] [phone] Trudi Grayson APRN FRAME HAND [address] [place] [address] Steven Canchola MD [address] [place] [id number] 12/27/2023 Ancillary Procedure [facility] [address] [facility] [address] [place] [phone] Chris De Leon MD [address] [place] [address] [...] this topic Medical Devices Implanted Type Area Help Desk Administrator Device Identifier Shelf Expiration Date Model / Serial / Lot Icd Resonate El Vr Df4 - [id number] Implanted:Qty : 1 on 07/04/2021 at [facility] ICD [employer] 09/09/2021 D432 / [id number] / [id number] Lead Wires- Right Atrium-02/04/20 16 Implanted:03/2016 by Timothy Smith MD (Quantity not on file) Explanted:12/2020 (Quantity not on file) Lead Wires- Right Atrium [employer] 2088TC-52 / [id number] / Lead Wires- Right Ventricle-02/03 Implanted:03/2016 by Timothy Smith MD (Quantity not on file) Explanted:12/2020 (Quantity not on file) Lead Wires- Right Ventricle [employer] 2088TC-58 / [id number] / Lead [place] Endotak Df4 Af 59 Cm 0272 - [id number] Implanted:Qty : 1 on 07/04/2021 at [facility] Leads [employer] 04/07/2023 0272 / [id number] / [id number] Pacemaker-Dino Sci Implanted:03/2016 by Timothy Smith MD (Quantity not on file) Explanted:12/2020 (Quantity not on file) Pacemaker [employer] G[address] L121 / [id number] / Procedures Procedure Name Priority Date/Time Associated Diagnosis Comments INTERROGATION DEVICE EVAL REMOTE ICD UP TO 90 Routine 09/13/2023 11:52 AM GUIDANCE ADVISER Sustained VT (ventricular tachycardia) (H) ICD (implantable cardioverter-defib 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 from Last 3 Months Results * INTERROGATION DEVICE EVAL REMOTE ICD UP TO 90 (09/13/2023 11:52 AM GUIDANCE ADVISER) Date Time Interrogation Session [id number] [employer] Implantable Pulse Generator Help Desk Administrator [employer]IC Implantable Pulse Generator Model D432 RESONATE EL ICD [employer] Implantable Pulse Generator Serial Number [id number] [employer]IC Type Interrogation Session Remote Scheduled [facility] Clinic Name [facility] [employer] Implantable Pulse Generator Type Defibrillator [employer]IC Implantable Pulse Generator Implant Date 20210704 [employer]IC Implantable Lead Help Desk Administrator [employer]IC Implantable Lead Model 0272 Endotak [place] 4-Site S [employer]IC Implantable Lead Serial Number [id number] [employer]ONIC Implantable Lead Implant Date 20210704 MEDTRONIC [...] Reformation [employer]ONIC Capacitor Last Charge Date Time [id number] [employer]IC Capacitor Charge Time 8.9 s MEDTRONIC [...] [employer]TR[employer]IC Therapy Statistic Total Date Time End [id number] [employer]TRONIC Episode Statistic Recent Count 0 MEDTRONIC [...] MEDTRONIC Episode Statistic Recent Date Time Start [id number] [employer]TRONIC Episode Statistic Recent Date Time End [id number] MEDTRONIC Episode Statistic Recent Date Time Start [id number] MEDTRONIC Episode Statistic Recent Date Time End [id number] [employer]TRONIC Episode Statistic Recent Date Time Start [id number] [employer]TRONIC Episode Statistic Recent Date Time End [id number] MEDTRONIC Episode Statistic Recent Date Time Start [id number] [employer]TRONIC Episode Statistic Recent Date Time End [id number] [employer]IC Episode Identifier [id number] [employer]IC Episode Type Category Periodic EGM [employer]IC Episode Date Time [id number] [employer]IC Episode Identifier [id number] [employer]IC Episode Type Category Other [employer]TRONIC Episode Date Time [id number] [employer] Anatomical Region Laterality Modality Other 09/13/2023 12:4 1 AM GUIDANCE ADVISER Narrative 09/25/2023 10:41 AM GUIDANCE ADVISER [employer] Resonate (S) ICD Remote Device Check SUPERVISOR FINISHING DEPARTMENT: 17 % ?? Mode: VVIR 50-130 ?? Presenting Rhythm: VS with occasional SUPERVISOR FINISHING DEPARTMENT ?? Historical Underlying Rhythm: AF 60-80's bpm [...] of VT with ATP - Essentio PPM (8806-4323): sustained VT, prompted upgrade to ICD Care Plan: meets all criteria for q2yr thresholds, will be due 08/2024. Scheduled remote in 3 months. ??OV with Dr. Canchola on 12/19/2023. Sent results and plan via [employer]. EC RN I have reviewed and interpreted the device interrogation, settings, programming and nurse's summary. The device is functioning within normal device parameters. I agree with the current findings, assessment and plan. Chris Hinds MD [facility] ORDERABLES from Last 3 Months Advance Directives For more information, please contact: [phone] Latest Code Status on File Code Status Date Activated Date Inactivated Comments Full Code 02/04/2016 9:52 AM 07/04/2021 11:49 AM Code Status History Code Status Date Activated Date Inactivated Comments Full Code 02/02/2016 9:20 PM 02/04/2016 9:52 AM Full Code 02/01/2012 2:37 PM 02/04/2012 6:16 PM Care Teams Mathematician Research Relationship Specialty Start Date End Date Graham Licona MD [facility] [address] [place] [address] PCP - General Family Medicine 06/30/21 Trudi Grayson APRN FRAME HAND [address] [id number] Assigned Heart and Vascular Provider 10/07/22 Steven Canchola MD [address] [place] [id number] Cardiovascular Disease 07/12/23
--- OUTSIDE RECORDS SUMMARY | 2023-10-30 11:40 | XMS_ITS | Encounter Summary ---
Author Name Unknown Organization [place] Address [address] [facility] [place] [address] Care Team Providers Care Driller Hand Name Role Phone Graham Licona MD Primary Care Provider [phone] Trudi Grayson APRN CCNP Unavailable [phone] Steven Canchola MD Unavailable + Reason for Visit * Reason Onset Date Comments Direct Oral Anticoagulant 08/08/2023 Encounter Details Date Type Department Care Team (Late st Contact Info) Description 08/08/2023 Telephone [facility] Anticoagulation Clinic [address] [place] [address] Ann Leos RN Direct Oral [...] Juvenal Burnham RN - 08/09/2023 1:16 PM MALL MANAGER Robbyis ordered per Trudi Ruffin guidelines. Patient requests [facility] mail out services. Juvenal Burnham RN August 09, 2023 1:17 PM MANAGER * Telephone Encounter - Trudi Grayson APRN CNP - 08/09/2023 11:40 AM MALL MANAGER Thanks for the update. Can we make sure we sent a prescription so he does not run out. Thanks Trudi MANAGER * Telephone Encounter - Juvenal Burnham RN - 08/09/2023 8:19 AM MALL MANAGER Patient states he has not been taking [...] Burnham RN August 09, 2023 8:23 AM MANAGER * Telephone Encounter - Trudi Grayson APRN CNP - 08/08/2023 5:34 PM MALL MANAGER Please see message below Patient has not been compliant with anticoagulation (refills). Could we please reach out to patientand see if he is faithfully taking Eliquis? If cost of Eliquis is prohibitive, consider switching to Coumadin if agreeable. Thanks Trudi MANAGER * Telephone Encounter - Ann Leos RN - 08/08/2023 12:19 PM CST ANTICOAGULATION DIRECT ORAL ANTICOAGULANT MONITORING SUBJECTIVE [facility] is evaluating Haris B [...] anticoagulation protocol Ann Leos RN Anticoagulation Clinic MANAGER documented in this encounter Plan of Treatment Upcoming Encounters Date Type Department Care Team (Late st Contact Info) Description 12/19/2023 9:45 AM CDT Office Visit [address] [place] [phone] Trudi Grayson APRN CCNP [address] [place] [address] Steven Canchola MD [address] [place] [address] 12/27/2023 Ancillary Procedure [facility] [address] [place] [phone] Chris De Leon MD [address] [place] [address] documented as of this encounter Visit Diagnoses Diagnosis Persistent atrial fibrillation (H) Atrial fibrillation documented in this encounter Care Teams Driller Hand Relationship Specialty Start Date End Date Graham Licona MD [facility] [address] [place] [address] PCP - General Family Medicine 06/30/21 Trudi Grayson APRN CCNP [address] [place] [id number] Assigned Heart and Vascular Provider 10/07/22 Steven Canchola MD [address] [place] [address] Cardiovascular Disease 07/12/23 documented as of this encounter
--- OUTSIDE RECORDS SUMMARY | 2023-10-30 11:40 | XMS_ITS | Data Portability ---
Author Name Unknown Address [address] [place] [address] Phone [phone] Organization [facility] Address [address] [place] [address] Care Team Providers Care Ratoprinter Name Role Phone KIRT AKINSORY Primary Care Provider [phone] Assessment Encounter Date Assessment Date Assessment LastModified [...] , dipstick 2021 022 ssamb [facility], [address] [place], [address], 10:24:02 Referral None recorded. Procedures None recorded. [...] Available [facility] [address], [place], [address], 09/07/2022 10:23:24 09/07/20 22 09/07/2022 urina lysis , dipst ick Clarity-Stat us Clear Not Available [facility] [address], [place], [address], 09/07/2022 10:23:24 09/07/20 22 09/07/2022 urina lysis , dipst ick pH-Status 6.5 Not Available [facility] [address], [place], [address], 09/07/2022 10:23:24 07/26/20 22 06/06/2022 US, renal No observ ation record ed. Not Available 07/26/2022 15:43:15 07/26/20 22 07/26/2022 CT, urogr am No observ ation record ed. Not Available 07/26/2022 15:44:21 Result Notes None recorded. Problems Name Status Onset Date Resolution Date Notes Provider Name and Address Organization Details Recorded Time Mass of urinary bladder Active 09/07/[address] MD, PHD [address] [place] [address], [phone], [facility] 09/07/2022 11:08:48 Lower urinary tract symptoms due to benign prostatic hypertrophy Active 09/07/[address] MD, PHD [address] [place] [address], [phone], [facility] 09/07/2022 11:08:53 Problem Notes None recorded. Procedures Surgical History Date Name Laterality Status Provider Name and Address Organization Details Recorded Time 2 Cystoscopy- male completed Felice Acosta MD, PHD [address] [place] [address],[address], [address], [facility] 09/07/2022 11:08:37 2 Bladder Scan completed [...] Updated DateTime 09/07/2022 180.34 cm 33.3 kg/m2 113598.58 g Jeffrey goldstein [facility] 09/07/2022 10:19:27 Social History Question Answer Notes LastModified by Organizat ion Details LastModified Time Tobacco Smoking Status Never Smoker Jeffrey goldstein [facility] 09/07/2022 10:22:32 What Was The Date Of Your Most Recent Tobacco Screening? 09/07/2022 [facility] Information not available 09/07/2022 Sex: Male Functional Status None recorded. Mental Status None recorded. Family History Nothing Reported. Medical History Condition Response Diabetes Y Bleeding Disorder Y Heart Disease Y High Blood Pressure Y High Cholesterol Y Past Encounters Encounter ID Performer Location Encounter Start Date Encounter Closed Date Diagnosis/Indication [id number] Felice Acosta MD, PHD [facility] [address] [place] [address] 09/07/2022 09:51:45 09/13/2022 10:52:14 Nocturia Lower urinary [...] Name 09/07/2022 1 [place] [id number] Haris Covingtonolive [id number] Haris Covingtonolive Notes Date Note Type Note [...] bladder ca Felice Acosta MD, PHD [address] [facility], [place], [address], [facility] 09/07/2022 11:10:42
--- OUTSIDE RECORDS SUMMARY | 2023-10-30 11:40 | XMS_ITS | Encounter Summary ---
Author Name Unknown Organization [facility] Address [address] [place] [address] Care Team Providers Care Load Test Mechanic Name Role Phone Graham Licona MD Primary Care Provider [phone] Trudi Grayson APRN STRAINER MILL OPERATOR Unavailable [phone] Steven Canchola MD Unavailable + Reason for Visit * CV Testing (Routine) - Pending Review Specialty Diagnoses / Procedures Referred By Contac t Referred To Contact Diagnoses Sustained VT (ventricular tachycardia) (H) ICD (implantable cardioverter-defib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 Procedures Cardiac Device Check - Remote Chris De Leon MD [address] [place] [address] Referral ID Status Reason Start Date Expiration Date V isits Requested Visits Authorized [id number] Pending Review 06/11/2023 06/10/2024 250 250 Encounter Details Date Type Department Care Team (Latest Contact Info) Description 09/13/2023 Ancillary Procedure [facility] [address] [place] [phone] Chris De Leon MD [address] [place] [id number] Sustained VT (ventricular tachycardia) (H); ICD (implantable [...] CDT Office Visit [facility] [address] [facility] [address] [place] [phone] Trudi Grayson APRN STRAINER MILL OPERATOR [address] [place] [address] Steven Canchola MD [address] [place] [address] 12/27/2023 Ancillary Procedure [facility] [address] [place] [phone] Chris De Leon MD [address] [place] [address] documented as of this encounter Procedures Procedure Name Priority Date/Time Associated Diagnosis Comments INTERROGATION DEVICE EVAL REMOTE ICD UP TO 90 Routine 09/13/2023 11:52 AM OPERATIONS SPECIALISTS Sustained VT (ventricular tachycardia) (H) ICD (implantable cardioverter-defib 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 documented in this encounter Results * INTERROGATION DEVICE EVAL REMOTE ICD UP TO 90 (09/13/2023 11:52 AM OPERATIONS SPECIALISTS) Date Time Interrogation Session [id number] [employer] Implantable Pulse Generator Practice Consultant [place] [employer] Implantable Pulse Generator Model D432 RESONATE EL ICD [employer] Implantable Pulse Generator Serial Number [id number] [employer] Type Interrogation Session Remote Scheduled [facility] Clinic Name [facility] [employer] Implantable Pulse Generator Type Defibrillator [employer] Implantable Pulse Generator Implant Date 20210704 [employer] Implantable Lead Practice Consultant [place] [employer] Implantable Lead Model 0272 Endotak [place] 4-Site S [employer] Implantable Lead Serial Number [id number] [employer] Implantable Lead Implant Date 20210704 MED[employer]IC [...] Reformation [employer] Capacitor Last Charge Date Time [id number] [employer] Capacitor Charge Time 8.9 s [employer] Capacitor Charge Type Shock [employer] Capacitor Last Charge Date Time [id number] [employer] Capacitor Charge Time 6.8 s MEDTRONIC [...] MEDTRONIC Episode Statistic Recent Date Time End [id number] [employer] Episode Statistic Recent Date Time Start MEDTRONIC Episode Statistic Recent Date Time End MEDTRONIC Episode Statistic Recent Date Time Start MEDTRONIC Episode Statistic Recent Date Time End MEDTRONIC Episode Identifier [id number] [employer] Episode Type Category Periodic EGM [employer] Episode Date Time [id number] [employer] Episode Identifier [id number] [employer] Episode Type Category Other [employer]IC Episode Date Time [id number] [employer] Anatomical Region Laterality Modality Other 09/13/2023 12:4 1 AM [facility]ATIONS [facility]ISTS Narrative 09/25/2023 10:41 AM OPERATIONS SPECIALISTS [email or web address] Resonate (S) ICD Remote Device Check GALLERY OR MUSEUM CURATOR: 17 % ?? Mode: VVIR 50-130 ?? Presenting Rhythm: VS with occasional GALLERY OR MUSEUM CURATOR ?? Historical Underlying Rhythm: AF 60-80's bpm (08/16/2022) Heart Rate: adequate variability ?? Sensing: WNL ?? Pacing Threshold: WNL ?? Impedance: WNL ?? Battery Status: 12.5 yrs estimated longevity, 8.9 second charge time ?? Atrial Arrhythmia: chronic AF, on eliquis ?? Ventricular Arrhythmia: none. On amiodarone for VT ?? ATP: 0 ?? Shocks: 0 ?? Other: Heart Logic 0 Tachy Therapy History: [facility] implanted for secondary prevention ---- 12/2021: 14 VT episodes with ATP and shocks ---- Jul and Aug 2021: 4 episodes of VT with ATP - Essentio PPM ([id number]): sustained VT, prompted upgrade to ICD Care Plan: meets all criteria for q2yr thresholds, will be due 08/2024. Scheduled remote in 3 months. ??OV with Dr. Canchola on 12/19/2023. Sent results and plan via [employer]. EC RN I have reviewed and interpreted [...] place documented in this encounter Care Teams Load Test Mechanic Relationship Specialty Start Date End Date Graham Licona MD [facility] [address] [place] [address] PCP - General Family Medicine 06/30/21 Trudi Grayson APRN STRAINER MILL OPERATOR [address] [place] [address] Assigned Heart and Vascular Provider 10/07/22 Steven Canchola MD [address] [place] [address] Cardiovascular Disease 07/12/23 documented as of this encounter
--- OUTSIDE RECORDS SUMMARY | 2023-10-30 11:40 | XMS_ITS | Encounter Summary ---
Author Name Unknown Organization [facility] Address [address] [place] [address] Care Team Providers Care Manager Social Work Name Role Phone Graham Licona MD Primary Care Provider [phone] Trudi Grayson APRN POLE INSPECTOR Unavailable [phone] Steven Canchola MD Unavailable + Encounter Details Date Type Department Care Team (Late st Contact Info) Description 08/07/2023 Telephone [facility] Care [address] [place] [address] Eve Santos, SIENNA Social History Tobacco [...] Grayson APRN CNP - 08/07/2023 11:52 AM RESERVATIONS SALES AGENT Reviewed results of heart logic. In the setting of no heart failure symptoms, shortness of breath, weight gain, or significant edema. No new recommendations at this time. Continue to monitor symptoms closely. Thanks Trudi RVATIONS SALES AGENT * Telephone Encounter - Eve Santos RN [...] an update to Trudi Grayson. GG RN RVATIONS SALES AGENT documented in this encounter Plan of Treatment Upcoming Encounters Date Type Department Care Team (Late st Contact Info) Description 12/19/2023 9:45 AM CDT Office Visit [facility] [address] [facility] [address] [place] [phone] Trudi Grayson APRN POLE INSPECTOR [address] [place] [address] Steven Canchola MD [address] [place] [id number] 12/27/2023 Ancillary Procedure [facility] Care [address] [place] [phone] Chris De Leon MD [address] [place] [id number] documented as of this encounter Visit Diagnoses Not on filedocumented in this encounter Care Teams Manager Social Work Relationship Specialty Start Date End Date Graham Licona MD [facility] [address] [place] [address] PCP - General Family Medicine 06/30/21 Trudi Grayson APRN POLE INSPECTOR [address] [place] [id number] Assigned Heart and Vascular Provider 10/07/22 Steven Canchola MD [address] [place] [id number] Cardiovascular Disease 07/12/23 documented as of this encounter
--- OUTSIDE RECORDS SUMMARY | 2023-10-30 11:40 | XMS_ITS | Encounter Summary ---
Author Name Unknown Organization [facility] Address [address] [place] [address] Care Team Providers Care Relay Shop Tester Name Role Phone Graham Licona MD Primary Care Provider [phone] Trudi Grayson APRN DEHYDRATION UNIT OPERATOR Unavailable [phone] Encounter Details Date Type Department Care Team (Late st Contact Info) Description 05/07/2023 [facility] Heart Care [address] [facility] [address] [place] [phone] Karey Kay, RN Social History Tobacco Use [...] 12/19/2023 9:45 AM CDT Office Visit [facility] [place] [address] [facility] [address] [place] [address] Trudi Grayson APRN DEHYDRATION UNIT OPERATOR [address] [place] [id number] Steven Canchola MD [address] [place] [id number] 12/27/2023 Ancillary Procedure [facility] Care [address] [facility] [address] [place] [phone] Chris De Leon MD [address] [place] [id number] documented as of this encounter Visit Diagnoses Not on filedocumented in this encounter Care Teams Relay Shop Tester Relationship Specialty Start Date End Date Graham Licona MD [facility] [address] [place] [address] PCP - General Family Medicine 06/30/21 Trudi Grayson APRN DEHYDRATION UNIT OPERATOR [address] [place] [address] Assigned Heart and Vascular Provider 10/07/22 documented as of this encounter
--- OUTSIDE RECORDS SUMMARY | 2023-10-30 11:40 | XMS_ITS | Encounter Summary ---
Author Name Unknown Organization [facility] Address [address] [place] [address] Care Team Providers Care Histologist Name Role Phone Graham Licona MD Primary Care Provider [phone] Trudi Grayson APRN MANAGER TRANSFER Unavailable [phone] Reason for Referral * CV Testing (Routine) - Pending Review Specialty Diagnoses / Procedures Referred By Mely turner Referred To Contact Diagnoses Sustained VT (ventricular tachycardia) (H) ICD (implantable cardioverter-defib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 Procedures Cardiac Device Check - Remote Chris De Leon MD [address] [place] [address] Referral ID Status Reason Start Date Expiration Date V isits Requested Visits Authorized [id number] Pending Review 06/11/2023 06/10/2024 250 250 * Consultation (Routine: Next available opening) - Pending Review Specialty Diagnoses / Procedures Referred By Mely turner Referred To Contact Cardiovascular Disease Diagnoses Sustained VT (ventricular tachycardia) (H) ICD (implantable cardioverter-defibrill ator) in place Trudi Grayson APRN MANAGER TRANSFER [address] [place] [address] Referral ID Status Reason Start Date Expiration Date V isits Requested Visits Authorized [id number] Pending Review 06/11/2023 06/10/2024 1 1 Question Answer Follow-up with: Other Junior Programmer Reason for follow-up: General Cardiology Scheduling Instructions: [facility] will call you to coordinate your care as prescribed by your provider. If you have concerns about scheduling, please call [phone]. Comments [facility] will call you to coordinate your care as prescribed by your provider. If you have concerns about scheduling, please call [phone]. Reason for Visit * CV Testing (Routine) - Closed Specialty Diagnoses / Procedures Referred By Mely turner Referred To Contact Diagnoses Cardiac pacemaker in situ Procedures Cardiac Device Check - Remote Basil Guadalupe MD [address] [place] [address] Referral ID Status Reason Start Date Expiration Date Visits Re quested Visits Authorized [id number] Closed 03/05/2023 03/04/2024 100 100 Encounter Details Date Type Department Care Team (Latest Contact Info) Description 06/11/2023 Ancillary Procedure [facility] Care [address] [facility] [address] [place] [phone] Basil Guadalupe MD [address] [place] [id number] Sustained VT (ventricular tachycardia) (H) (Primary Dx); [...] [facility] [place] [address] [facility] [address] [place] [phone] Trudi Grayson APRN MANAGER TRANSFER [address] [place] [address] Steven Canchola MD [address] [place] [id number] 12/27/2023 Ancillary Procedure [facility] Care [address] [facility] [address] [place] [phone] Chris De Leon MD [address] [place] [id number] Scheduled Orders Name Type Priority Associated Diagnoses [...] ICD UP TO 90 (09/13/2023 11:52 AM LOST CHARGE CARD CLERK) Date Time Interrogation Session [id number] [employer] Implantable Pulse Generator Human Resource Manager [employer] [employer] Implantable Pulse Generator Model D432 RESONATE EL ICD [employer] Implantable Pulse Generator Serial Number [id number] [employer] Type Interrogation Session Remote Scheduled [facility] Clinic Name [facility] [employer] Implantable Pulse Generator Type Defibrillator [employer] Implantable Pulse Generator Implant Date 20210704 [employer] Implantable Lead Human Resource Manager [place] [employer] Implantable Lead Model 0272 Endotak [place] 4-Site S [employer] Implantable Lead Serial Number [id number] [employer] Implantable Lead Implant Date 20210704 [employer]IC [...] Reformation [employer] Capacitor Last Charge Date Time [id number] [employer] Capacitor Charge Time 8.9 s [employer]IC Capacitor Charge Type Shock [employer] Capacitor Last Charge Date Time [employer]IC Capacitor Charge Time 6.8 s [employer]IC Capacitor Charge Energy 41 J [employer]IC [place] Statistic Date Time Start [employer]IC Brandon Statistic [...] Category Periodic EGM [employer] Episode Date Time [id number] [employer] Episode Identifier [id number] [employer] Episode Type Category Other [employer]IC Episode Date Time [id number] [employer] Anatomical Region Laterality Modality Other 09/13/2023 12:4 1 AM LOST CHARGE CARD CLERK Narrative 09/25/2023 10:41 AM LOST CHARGE CARD CLERK [employer] Resonate (S) ICD Remote Device Check STAPLE CUTTER: 17 % ?? Mode: VVIR 50-130 ?? Presenting Rhythm: VS with occasional STAPLE CUTTER ?? Historical Underlying Rhythm: AF 60-80's bpm [...] of VT with ATP - Essentio PPM (6919-3172): sustained VT, prompted upgrade to ICD Care Plan: meets all criteria for q2yr thresholds, will be due 08/2024. Scheduled remote in 3 months. ??OV with Dr. Canchola on 12/19/2023. Sent results and plan via [facility] ([facility]). EC RN I have reviewed and interpreted the device interrogation, settings, programming and nurse's summary. The device is functioning within normal device parameters. I agree with the current findings, assessment and plan. Chris Hinds MD [facility] ORDERABLES * INTERROGATION DEVICE EVAL REMOTE ICD UP TO 90 (06/11/2023 11:15 AM CDT) Date Time Interrogation Session [id number] [employer] Implantable Pulse Generator Human Resource Manager [employer] Implantable Pulse Generator Model D432 RESONATE EL ICD [employer] Implantable Pulse Generator Serial Number [id number] [employer] Type Interrogation Session Remote [facility] Clinic Name [place] [employer] Implantable Pulse Generator Type Defibrillator [employer] Implantable Pulse Generator Implant Date 20210704 [employer] Implantable Lead Human Resource Manager [employer] Implantable Lead Model 0272 Endotak [place] 4-Site S [employer] Implantable Lead Serial Number [id number] [employer] Implantable Lead Implant Date 20210704 MEDTRONIC [...] ms [employer]IC Battery Date Time of Measurements [id number] [employer] Battery Status Beginning of Service [employer] Battery Remaining Longevity 138 mo [employer]IC Battery Remaining Percentage 98 % [employer] Capacitor Charge Type Reformation [employer] Capacitor Last Charge Date Time [id number] [employer] Capacitor Charge Time 8.9 s [employer] Capacitor Charge Type Shock [employer] Capacitor Last Charge Date Time [id number] [employer] Capacitor Charge Time 6.8 s [employer]IC Capacitor Charge Energy 41 J [employer] Brandon Statistic Date Time Start [employer]IC Brandon Statistic Date Time End [id number] [employer] Brandon Statistic RV Percent Paced 18 % [employer] Therapy Statistic Recent Shocks Delivered 0 [employer]IC Therapy Statistic Recent Shocks Aborted 0 [employer]IC Therapy Statistic Recent ATP Delivered 0 [employer] Therapy Statistic Recent Date Time Start [employer]TR[employer]IC Therapy Statistic Recent Date Time End [id number] [employer] Therapy Statistic Total Shocks Delivered 6 [employer] Therapy Statistic Total Shocks Aborted 0 [employer] Therapy Statistic Total ATP Delivered 34 [employer]TR[employer]IC Therapy Statistic Total Date Time End [id number] MEDTRONIC Episode Statistic Recent Count 0 MEDTRONIC [...] MEDTRONIC Episode Statistic Recent Date Time Start [id number] MEDTRONIC Episode Statistic Recent Date Time End [id number] [employer]ONIC Episode Statistic Recent Date Time Start [id number] [employer]IC Episode Statistic Recent Date Time End [id number] [employer]IC Episode Statistic Recent Date Time Start [id number] [employer]TR[employer]IC Episode Statistic Recent Date Time End [id number] [employer]TRONIC Episode Statistic Recent Date Time Start [id number] [employer]TRONIC Episode Statistic Recent Date Time End [id number] [employer]IC Episode Statistic Recent Date Time Start MEDTRONIC Episode Statistic Recent Date Time End [id number] [employer]IC Episode Identifier [id number] [employer]IC Episode Type Category Periodic EGM [employer]IC Episode Date Time [id number] [employer] Episode Identifier [id number] [employer]IC Episode Type Category Other [employer]IC Episode Date Time [id number] [employer] Anatomical Region Laterality Modality Other 06/11/2023 12:4 1 AM CDT Narrative 06/11/2023 1:01 PM CDT [employer] Resonate (S) ICD Remote Device Check ?? STAPLE CUTTER: 18 % ?? Mode: VVIR 50-130 ?? Presenting Rhythm: VS and STAPLE CUTTER ?? Historical Underlying Rhythm: AF 60-80's bpm [...] of VT with ATP - Essentio PPM (3104-5149): sustained VT, prompted upgrade to ICD Care [...] place documented in this encounter Care Teams Histologist Relationship Specialty Start Date End Date Graham Licona MD [facility] [address] [place] [address] PCP - General Family Medicine 06/30/21 Trudi Grayson APRN MANAGER TRANSFER [address] [address] Assigned Heart and Vascular Provider 10/07/22 documented as of this encounter
--- OUTSIDE RECORDS SUMMARY | 2023-10-30 11:40 | XMS_ITS ---
Author Name Unknown Organization [facility] Address [facility] [place] [address] Care Team Providers Care Entry Level Manager Name Role Phone Graham Licona MD Primary Care Provider [phone] Trudi Grayson APRN SENIOR COURTROOM CLERK Unavailable [phone] Steven Canchola MD Unavailable + Active Problems [...]
--- OUTSIDE RECORDS SUMMARY | 2023-10-30 11:41 | XMS_ITS | Encounter Summary ---
Author Name Unknown Organization [facility] Address [address] [place] [address] Care Team Providers Care Quality Control Microbiologist Name Role Phone Graham Licona MD Primary Care Provider [phone] Trudi Grayson APRN STOCKING AND BOX SHOP SUPERVISOR Unavailable [phone] Reason for Visit * CV Testing (Routine) - Closed Specialty Diagnoses / Procedures Referred By Contnghia t Referred To Contact Diagnoses Cardiac pacemaker in situ Procedures Cardiac Device Check - Remote Timothy Smith MD [facility] [address] [place] [address] Referral ID Status Reason Start Date Expiration Date Visits Re quested Visits Authorized [id number] Closed 08/16/2022 08/16/2023 100 100 Encounter Details Date Type Department Care Team (Latest Contact Info) Description 03/05/2023 Ancillary Procedure [facility] [address] [facility] [address] [place] [phone] Cardiac pacemaker in situ Social History Tobacco [...] Description 12/19/2023 9:45 AM CDT Office Visit [facility] Heart [facility] [address] [facility] [address] [place] [phone] Trudi Grayson APRN CNP [address] [place] [address] Steven Canchola MD [address] [place] [id number] 12/27/2023 Ancillary Procedure [facility] [address] [facility] [address] [place] [phone] Chris De Leon MD [address] [place] [id number] documented as of this encounter Procedures Procedure Name Priority Date/Time Associated Diagnosis Comments INTERROGATION DEVICE EVAL REMOTE ICD UP TO 90 Routine 03/05/2023 10:17 AM CDT Cardiac pacemaker in situ documented in this encounter Results * INTERROGATION DEVICE EVAL REMOTE ICD UP TO 90 (03/05/2023 10:17 AM CDT) Date Time Interrogation Session [id number] [employer] Implantable Pulse Generator Health Information Specialist [place] [employer] Implantable Pulse Generator Model D432 RESONATE EL ICD [employer] Implantable Pulse Generator Serial Number [id number] [employer] Type Interrogation Session Remote [facility] Clinic Name [facility] [employer] Implantable Pulse Generator Type Defibrillator [employer] Implantable Pulse Generator Implant Date 20210704 [employer] Implantable Lead Health Information Specialist [place] [employer] Implantable Lead Model 0272 Endotak [place] 4-Site S [employer] Implantable Lead Serial Number [id number] [employer] Implantable Lead Implant Date 20210704 MEDTRONIC [...] Reformation [employer] Capacitor Last Charge Date Time [id number] [employer] Capacitor Charge Time 8.9 s [employer] Capacitor Charge Type Shock [employer] Capacitor Last Charge Date Time [id number] [employer] Capacitor Charge Time 6.8 s MEDTRONIC [...] Category Periodic EGM [employer]IC Episode Date Time [id number] [employer] Episode Identifier [id number] [employer] Episode Type Category Other [employer]IC Episode Date Time [id number] [employer] Anatomical Region Laterality Modality Other 03/05/2023 1:07 AM CDT Narrative 03/05/2023 2:10 PM CDT [employer] Resonate (S) ICD Remote Device Check ?? MAJOR SALES ASSOCIATE: 18 % ?? Mode: VVIR5 0-130 ?? Presenting Rhythm: VS/MAJOR SALES ASSOCIATE at 60s ?? Historical Underlying Rhythm: SB/SR 50-60s Heart Rate: 50-100 but primarily 50-60s ?? Sensing: WNL ?? Pacing Threshold: WNL ?? Impedance: WNL, shock impedance slowly trending up over past year ?? Battery Status: 13y ?? Atrial Arrhythmia: none ?? Ventricular Arrhythmia: none ?? ATP: 0 ?? Shocks: 0 ?? Tachy Therapy History: In process -[place] [employer] Resonate (07/04/21-present) secondary prevention:\X0A09\-ATP: 34 -08/2021\X0A09\-Shock: [...] situ documented in this encounter Care Teams Quality Control Microbiologist Relationship Specialty Start Date End Date Graham Licona MD [facility] [address] [place] [address] PCP - General Family Medicine 06/30/21 Trudi Grayson APRN STOCKING AND BOX SHOP SUPERVISOR [address] [place] [address] Assigned Heart and Vascular Provider 10/07/22 documented as of this encounter
--- OUTSIDE RECORDS SUMMARY | 2023-10-30 11:41 | XMS_ITS | Clinical Summary ---
Author Name Unknown Organization [employer] [facility] Address [place], [place] [address] Care Team Providers Care Clinic Nurse Name Role Phone Juan José Licona MD Primary Care Provider [phone] Allergies No known active allergies Medications Medication [...] shock 02/22/2022 Coronary artery disease invo lving [place] coronary artery of [place] heart with angina pectoris 06/20/2021 Stage 3a [...] ocular 10/12/2016 Coronary artery disease invo lving [place] coronary artery of [place] heart without angina pectoris 02/11/2016 Lumbar foraminal stenosis 08/31/2015 Lumbar radicular pain 08/31/2015 Anticoagulation monitoring, INR range 2-3 2011 Atrial flutter 02/05/2012 Other and unspecified hyperlipidemia 10/18/2011 Low back pain 02/15/2010 HTN (hypertension) 02/10/2010 Resolved Problems Problem Noted Date Diagnosed Date Resolved Date Controlled type 2 diabetes m ellitus with complication, without long-term current use of insulin 10/11/2018 06/20/2021 Controlled type 2 diabetes m ellitus with complication, without long-term current use of insulin 01/13/2017 09/02/2018 Encounters Date Type Department Care Team Description 10/29/2023 Lab Requisition [facility] [phone] Jeffrey Noel MD 10/21/2023 11:20 AM MOBILE APPLICATION TESTER Orders Only [facility] [address] [place] [address] 2 scans: (2-Ord) ECHO TTE COMPLETE WO CONTRAST ([id number]) 09/19/2023 Telephone [facility] [address] [place] [address] Pcp, No Abstract (Resolved Primary Care RN Care Management episode) from Last 3 Months Immunizations Name Administration Dates Next Due COVID-19 vaccine (toucanBox 30mcg/0.3mL) PF, MDV 12/04/2020,11/13/2020 Influenza Virus, Unspecified 08/06/2004, 07/23/1997,08/05/1996,1993,08/05/1993,08/11/1992 Influenza, [...] Procedure Name Priority Date/Time Associated Diagnosis Comments BASIC METABOLIC PANEL Routine 10/30/2023 8:30 AM MOBILE APPLICATION TESTER Chronic kidney disease, stage 3b (HC) ECHO TTE COMPLETE WO CONTRAST Routine 10/21/2023 12:08 PM MOBILE APPLICATION TESTER Dyspnea from Last 3 Months Results * (ABNORMAL) BASIC METABOLIC PANEL (10/30/2023 8:30 AM MOBILE APPLICATION TESTER) SODIUM 142 136 - 145 mmol/L 10/30/2023 9:36 AM [facility] POTASSIUM 4.2 3.5 - 5.1 mmol/L 10/30/2023 9:36 AM [facility] CHLORIDE 102 98 - 107 mmol/L 10/30/2023 9:36 AM [facility] CO2,TOTAL 29 22 - 29 mmol/L 10/30/2023 9:36 AM [facility] ANION GAP 11 5 - 18 10/30/2023 9:36 AM [facility] GLUCOSE 89 70 - 99 mg/dL 10/30/2023 9:36 AM [facility] CALCIUM 9.5 8.8 - 10.2 mg/dL 10/30/2023 9:36 AM [facility] BUN 41(H) 8 - 23 mg/dL 10/30/2023 9:36 AM [facility] CREATININE 2.10(H) 0.70 - 1.20 mg/dL 10/30/2023 9:36 AM [facility] BUN/CREAT RATIO 20 10 - 20 9:36 AM [facility] eGFR 30(L) >90 mL/min/1.7 3m2 10/30/2023 9:36 AM [facility] Comment:As of 2021, eG FR is calculated by the CKD-EPI creatinine equation without race adjustment. ??eGFR can be influenced by muscle mass, exercise, and diet. ??The reported eGFR is an estimation only and is only applicable if the renal function is stable. Blood BLOOD SPECIMEN / Unknown Butterfly / Unknown 10/30/2023 8:30 AM MOBILE APPLICATION TESTER 10/30/2023 9:10 AM MOBILE APPLICATION TESTER Jeffrey Noel MD CHEMISTRY [facility] [address] [place] [address] * ECHO TTE COMPLETE WO CONTRAST (10/21/2023 12:08 PM MOBILE APPLICATION TESTER) AORTIC VALVE MEAN PG 4 mmHg EJECTION FRACTION 63 % PEAK TR VELOCITY 3.0 m/s LVEDD 5.6 cm Anatomical Region Laterality Modality Ultrasound 10/21/2023 11:3 4 AM MOBILE APPLICATION TESTER Narrative 10/21/2023 4:33 PM MOBILE APPLICATION TESTER ECHOCARDIOGRAM RADHA VILLA ?Accession#: ?? [id number] : ?1940 83 years Study Date: ?? 10/21/2023 11:34:52 AM Gender: M ? BP: ? 106/59 mmHg Height: 180.00 cm ? BSA: ?2.28 m? ? ? Weight: 109.00 kg ? Tech: ? MJS ?Referring MD: NAS DEGROOT Site: ? [facility] Reading Location: [facility] Patient Location: Inpatient. Procedure: 2D, Color Doppler [...] . This study was interpreted by an [facility] accredited facility. CC: [facility] (med records) [facility]. ??Final ?? Procedure Note Bear Garcia MD - 10/21/2023 ECHOCARDIOGRAM RADHA VILLA : 1940 83 years Study Date: 10/21/2023 11:34:52 AM Gender: M BP: 106/59 mmHg Height: 180.00 cm BSA: 2.28 m? ? ? Weight: 109.00 kg Tech: YOVANY Referring MD: NAS DEGROOT Site: [facility] Reading Location: Mobile [facility] Patient Location: Inpatient. Procedure: 2D, Color Doppler [...] [facility] accredited facility. CC: [facility] (med records) [facility]. Final Nas Degroot MD ECHO ORD from Last 3 [...] to Assess Preferences, Provider to review later Care Teams Clinic Nurse Relationship Specialty Start Date End Date Juan José Licona MD [address] [place] [address] PCP - General Family Practice 10/21/23
--- OUTSIDE RECORDS SUMMARY | 2023-10-30 11:41 | XMS_ITS | Encounter Summary ---
Author Name Unknown Organization [place] Address [address] [facility] [place] [address] Care Team Providers Care Family Practice Doctor Name Role Phone Graham Licona MD Primary Care Provider [phone] Trudi Grayson APRN TERADATA DEVELOPER Unavailable [phone] Reason for Visit * Reason Onset Date Comments Refill Request 12/04/2022 amiodarone Encounter Details Date Type Department Care Team (Late st Contact Info) Description 12/04/2022 Refill [facility] [address] [place] [address] [address] [place] [address] Trudi Grayson APRN TERADATA DEVELOPER [address] [facility] [place], [place] [address] Refill Request (amiodarone) Social History Tobacco Use [...] Cristopher Durán RN - 12/04/2022 8:40 AM ACCOUNT SERVICE ASSOCIATE [facility] Refill Guideline reviewed. Medication meets criteria for refill. UNT SERVICE ASSOCIATE documented in this encounter Plan of Treatment Upcoming Encounters Date Type Department Care Team (Late st Contact Info) Description 12/19/2023 9:45 AM CDT Office Visit [facility] [place] [address] [facility] [address] [place] [phone] Trudi Grayson APRN TERADATA DEVELOPER [address] [place] [address] Steven Canchola MD [address] [place] [address] 12/27/2023 Ancillary Procedure [facility] Care [address] [facility] [address] [place] [phone] Chris De Leon MD [address] [place] [address] documented as of this encounter Visit Diagnoses Diagnosis Sustained VT (ventricular tachycardia) (H) Paroxysmal ventricular tachycardia documented in this encounter Care Teams Family Practice Doctor Relationship Specialty Start Date End Date Graham Licona MD [facility] [address] [place] [address] PCP - General Family Medicine 06/30/21 Trudi Grayson APRN TERADATA DEVELOPER [address] [place] [address] Assigned Heart and Vascular Provider 10/07/22 documented as of this encounter
--- OUTSIDE RECORDS SUMMARY | 2023-10-30 11:41 | XMS_ITS | Encounter Summary ---
Author Name Unknown Organization [place] Address [address] [facility] [place] [address] Care Team Providers Care Auto Damage Appraiser Name Role Phone Herminia Coleman MD Primary Care Provider Ellie jamesilable Graham Licona MD Primary Care Provider [phone] [facility] Primary Care Provider + Slava Hernandez PA-C Primary Care Provider [phone] Timothy Smith MD Unavailable Unavailable Graham Licona MD Primary Care Provider [phone] Tammy Montenegro PA-C Unavailable [phone] Trudi Grayson APRN INFORMATION ASSURANCE ENGINEER Unavailable [phone] Steven Canchola MD Unavailable + Encounter Details Date Type Department Care Team (Late st Contact Info) Description 02/10/2013 Office Visit-[facility] [address] [place] [address] Timothy Smith MD Social History Tobacco Use [...] old Referring Physician: HERMINIA COLEMAN Referring Clinic: [facility] CURRENT DIAGNOSES 1. - Hyperlipidemia, 272.4 2. - Hypertension, 401.1 3. NM-Recent Unspecified, 410.91 4. - CAD, 414.00 5. [...] in another institution. The patient presented to [facility] last year with chestpain. He [...] Cardiology followup plan. Subsequently he went to [facility] and underwent a DC cardioversion. Apparently, [...] Description 12/19/2023 9:45 AM CDT Office Visit [facility] [address] [facility] [address] [place] [address] Trudi Grayson APRN INFORMATION ASSURANCE ENGINEER [address] [place] [address] Steven Canchola MD [address] [place] [address] 12/27/2023 Ancillary Procedure [facility] Care [address] [facility] [address] [place] [phone] Chris De Leon MD [address] [place] [address] documented as of this encounter Visit Diagnoses Not on filedocumented in this encounter Care Teams Auto Damage Appraiser Relationship Specialty Start Date End Date Herminia Coleman MD PCP - General Family Practice 02/01/12 04/12/17 Graham Licona MD [facility] [address] [place] [address] PCP - General Family Practice 04/13/17 01/15/18 [facility] [address] [place] [address] PCP - General 01/16/18 07/01/18 Slava Hernandez PA-C [facility] [id number] [place] [address] PCP - General Physician Wash Rack Operator 07/02/18 06/29/21 Graham Licona MD [facility] [address] [place] [address] PCP - General Family Medicine 06/30/21 Timothy Smith MD Assigned Heart and Vascular Provider 07/23/20 09/08/22 Tammy Montenegro PA-C [address] [place] [id number] Assigned Heart and Vascular Provider 09/09/22 10/06/22 Trudi Grayson APRN INFORMATION ASSURANCE ENGINEER [address] [place] [address] Assigned Heart and Vascular Provider 10/07/22 Steven Canchola MD [address] [place] [address] Cardiovascular Disease 07/12/23 documented as of this encounter
--- OUTSIDE RECORDS SUMMARY | 2023-10-30 11:41 | XMS_ITS | Encounter Summary ---
Author Name Unknown Organization [place] Address [facility] [place] [address] Care Team Providers Care Customer Support Manager Name Role Phone Herminia Coleman MD Primary Care Provider Ellie jamesilaGraham Calvo MD Primary Care Provider [phone] [facility] Primary Care Provider + Slava Hernandez PA-C Primary Care Provider [phone] Timothy Smith MD Unavailable Unavailable Graham Licona MD Primary Care Provider [phone] Tammy Montenegro PA-C Unavailable [phone] Trudi Grayson APRN MAINTENANCE REPAIRMAN Unavailable [phone] Steven Canchola MD Unavailable + Encounter Details Date Type Department Care Team (Late st Contact Info) Description 03/18/2013 Office Visit-[facility] Heart [address] [place] [phone] Michelle Huff PA-C Social History Tobacco Use [...] CDT Progress Note Created by: HANK Arellano [id number] DATE: 03/18/2013 RADHA FAROOQ DATE OF : 1940 AGE: [age] years old Referring Physician: HERMINIA COLEMAN Referring Clinic: [facility] CURRENT DIAGNOSES 1. - Hyperlipidemia, 272.4 2. [...] performed. Subsequently he went to [facility] and underwent a direct current cardioversion. [...] Weight- 318.00 lbs. Height- 71 BMI Measurement: [employer] Error: [Microsoft][ODBC SQL Brass Instrument Repair Technician Employment Consultant][SQL Brass Instrument Repair Technician]Divide by zero error encountered. - 93730 CONSTITUTIONAL cooperative, alert and oriented,well developed, well [...] in 1985 with a four-vessel bypass at [facility]. Subsequent angiography in Jan, 2012, did [...] Visit [facility] [address] [facility] [address] [place] [phone] Trudi Grayson APRN MAINTENANCE REPAIRMAN [address] [place] [address] Steven Canchola MD [address] [place] [address] 12/27/2023 Ancillary Procedure [facility] Care [address] [facility] [address] [place] [phone] Chris De Leon MD [address] [place] [address] documented as of this encounter Visit Diagnoses Not on filedocumented in this encounter Care Teams Customer Support Manager Relationship Specialty Start Date End Date Herminia Coleman MD PCP - General Family Practice 02/01/12 04/12/17 Graham Licona MD [facility] [address] [place] [address] PCP - General Family Practice 04/13/17 01/15/18 [facility] [address] [place] [address] PCP - General 01/16/18 07/01/18 Slava Hernandez PA-C [facility] [id number] [place] [address] PCP - General Physician Public Welfare Worker 07/02/18 06/29/21 Graham Licona MD [facility] [address] [place] [address] PCP - General Family Medicine 06/30/21 Timothy Smith MD Assigned Heart and Vascular Provider 07/23/20 09/08/22 Tammy Montenegro PA-C [address] [place] [address] Assigned Heart and Vascular Provider 09/09/22 10/06/22 Trudi Grayson APRN MAINTENANCE REPAIRMAN [address] [place] [address] Assigned Heart and Vascular Provider 10/07/22 Steven Canchola MD [address] [place] [address] Cardiovascular Disease 07/12/23 documented as of this encounter
--- OUTSIDE RECORDS SUMMARY | 2023-10-30 11:41 | XMS_ITS | Encounter Summary ---
Author Name Unknown Organization [place] Address [address] [facility] [place] [address] Care Team Providers Care Outpatient Physical Therapist Assistant Name Role Phone Herminia Coleman MD Primary Care Provider Ellie jamesilaGraham Calvo MD Primary Care Provider [phone] [facility] Primary Care Provider + Slava Hernandez PA-C Primary Care Provider [phone] Timothy Smith MD Unavailable Unavailable Graham Licona MD Primary Care Provider [phone] Tammy Montenegro PA-C Unavailable [phone] Trudi Grayson APRN SENIOR MECHANICAL PROJECT MANAGER Unavailable [phone] Steven Canchola MD Unavailable + Encounter Details Date Type Department Care Team (Late st Contact Info) Description 05/23/2013 Office Visit-[facility] [address] [place] [phone] Timothy Smith MD Social History Tobacco Use [...] Referring Clinic: [facility] CURRENT DIAGNOSES 1. - Hyperlipidemia, 272.4 2. [...] hr, 1 p.o. twice daily, #180 ([place]) MEDICATIONS REFILLED/STOPPED TODAY: metoprolol succinate 50 [...] Description 12/19/2023 9:45 AM CDT Office Visit [facility] [address] [facility] [address] [place] [phone] Trudi Grayson APRN SENIOR MECHANICAL PROJECT MANAGER [address] [place] [address] Steven Canchola MD [address] [place] [address] 12/27/2023 Ancillary Procedure [facility] Heart Care [address] [facility] [address] [place] [phone] Chris De Leon MD [address] [place] [address] documented as of this encounter Visit Diagnoses Not on filedocumented in this encounter Care Teams Outpatient Physical Therapist Assistant Relationship Specialty Start Date End Date Herminia Coleman MD PCP - General Family Practice 02/01/12 04/12/17 Graham Licona MD [facility] [address] [place] [address] PCP - General Family Practice 04/13/17 01/15/18 [facility] [address] [place] [phone] PCP - General 01/16/18 07/01/18 Slava Hernandez PA-C [facility] [address] [place] [address] PCP - General Physician Fire Boss 07/02/18 06/29/21 Graham Licona MD [facility] [address] [place] [address] PCP - General Family Medicine 06/30/21 Timothy Smith MD Assigned Heart and Vascular Provider 07/23/20 09/08/22 Tammy Montenegro PA-C [address] [place] [address] Assigned Heart and Vascular Provider 09/09/22 10/06/22 Trudi Grayson APRN CNP [address] [place] [address] Assigned Heart and Vascular Provider 10/07/22 Steven Canchola MD [address] [place] [address] Cardiovascular Disease 07/12/23 documented as of this encounter
--- OUTSIDE RECORDS SUMMARY | 2023-10-30 11:41 | XMS_ITS | Encounter Summary ---
Author Name Unknown Organization [place] Address [address] [place] [address] Care Team Providers Care Molding Line Operator Name Role Phone Graham Licona MD Primary Care Provider [phone] Trudi Grayson APRN NURSERY NURSE Unavailable [phone] Reason for Visit * CV Testing (Routine) - Closed Specialty Diagnoses / Procedures Referred By Contnghia t Referred To Contact Diagnoses Cardiac pacemaker in situ Procedures Cardiac Device Check - Remote Timothy Smith MD [facility] [address] [place] [address] Referral ID Status Reason Start Date Expiration Date Visits Re quested Visits Authorized [id number] Closed 08/16/2022 08/16/2023 100 100 Encounter Details Date Type Department Care Team (Latest Contact Info) Description 11/27/2022 Ancillary Procedure [facility] Care [address] [facility] [address] [place] [phone] Cardiac pacemaker in situ Social History Tobacco [...] Visit [facility] Heart [facility] [address] [facility] [address] [place] [phone] Trudi Grayson APRN CNP [address] [place] [address] Steven Canchola MD [address] [place] [address] 12/27/2023 Ancillary Procedure [facility] Care [address] [facility] [address] [place] [phone] Chris De Leon MD [address] [place] [address] documented as of this encounter Procedures Procedure Name Priority Date/Time Associated Diagnosis Comments INTERROGATION DEVICE EVAL REMOTE ICD UP TO 90 Routine 11/27/2022 4:27 PM PESTICIDE CHEMIST Cardiac pacemaker in situ documented in this encounter Results * INTERROGATION DEVICE EVAL REMOTE ICD UP TO 90 (11/27/2022 4:27 PM PESTICIDE CHEMIST) Date Time Interrogation Session [id number] [employer] Implantable Pulse Generator Image Scientist [employer] Implantable Pulse Generator Model D432 RESONATE EL ICD [employer] Implantable Pulse Generator Serial Number [id number] [employer] Type Interrogation Session Remote [employer] Clinic Name [facility] [employer] Implantable Pulse Generator Type Defibrillator [employer] Implantable Pulse Generator Implant Date 20210704 [employer] Implantable Lead Image Scientist [employer] Implantable Lead Model 0272 [place] 4-Site S [employer] Implantable Lead Serial Number [id number] [employer] Implantable Lead Implant Date 20210704 [employer] [...] ms [employer] Battery Date Time of Measurements [id number] [employer] Battery Status Beginning of Service [employer] Battery Remaining Longevity 162 mo [employer] Battery Remaining Percentage 100 % [employer] Capacitor Charge Type Reformation [employer] Capacitor Last Charge Date Time [id number] [employer] Capacitor Charge Time 8.8 s [employer] [...] [employer] Episode Statistic Recent Date Time Start [id number] [employer] Episode Statistic Recent Date Time End [id number] [employer] Episode Statistic Recent Date Time Start [employer] Episode Statistic Recent Date Time End [employer] Episode Statistic Recent Date Time Start [employer] Episode Statistic Recent Date Time End [employer] Episode Identifier [id number] [employer] Episode Type Category Periodic EGM [employer] Episode Date Time [id number] [employer] Anatomical Region Laterality Modality Other 11/27/2022 3:13 PM PESTICIDE CHEMIST Narrative 12/01/2022 2:00 PM PESTICIDE CHEMIST [employer] Resonate (S) ICD Remote Device Check SAND MIXER: 17% Mode: VVIR 50-130 Underlying Rhythm: VS [...] situ documented in this encounter Care Teams Molding Line Operator Relationship Specialty Start Date End Date Graham Licona MD [facility] [address] [place] [address] PCP - General Family Medicine 06/30/21 Trudi Grayson APRN NURSERY NURSE [address] [place] [address] Assigned Heart and Vascular Provider 10/07/22 documented as of this encounter
--- OUTSIDE RECORDS SUMMARY | 2023-10-30 11:41 | XMS_ITS | Encounter Summary ---
Author Name Unknown Organization [place] Address [address] [facility] [place] [address] Care Team Providers Care Recycling Coordinator Name Role Phone Graham Licona MD Primary Care Provider [phone] Trudi Grayson APRN RN PERINATAL Unavailable [phone] Reason for Visit * Reason Onset Date Comments Orders 12/26/2022 Needs lab order for A1C Encounter Details Date Type Department Care Team (Late st Contact Info) Description 12/26/2022 Telephone [facility] [address] [facility] [address] [place] [phone] Trudi Grayson APRN RN PERINATAL [address] [facility] [place] [place] [place] [id number] Orders (Needs lab order for A1C) Social [...] GerrySue boyd - 12/26/2022 1:28 PM CDT [facility] Call Center Phone Message May a [...] CDT Office Visit [facility] [address] [place] [address] Trudi Grayson APRN RN PERINATAL [address] [place] [address] Steven Canchola MD [address] [facility] [address] [place] [address] 12/27/[address] [facility] Heart Care [address] [facility] [address] [place] [address] Chris De Leon MD [address] [place] [address] documented as of this encounter Visit Diagnoses Not on filedocumented in this encounter Care Teams Recycling Coordinator Relationship Specialty Start Date End Date Graham Licona MD [facility] [address] [place] [address] PCP - General Family Medicine 06/30/21 Trudi Grayson APRN [facility] [address] [place] [address] Assigned Heart and Vascular Provider 10/07/22 documented as of this encounter
--- OUTSIDE RECORDS SUMMARY | 2023-10-30 11:41 | XMS_ITS | Encounter Summary ---
Author Name Unknown Organization [place] Address [address] [place] [address] Care Team Providers Care Director Of Occupational Therapy Name Role Phone Graham Licona MD Primary Care Provider Trudi Grayson APRN TILE ERECTOR Unavailable [phone] Encounter Details Date Type Department Care Team (Late st Contact Info) Description 04/30/2023 [facility] [address] [facility] [address] [place] [phone] Karey Kay, RN Social History Tobacco Use [...] Description 12/19/2023 9:45 AM CDT Office Visit [facility] [place] [address] [facility] [address] [place] [phone] Trudi Grayson APRN TILE ERECTOR [address] [place] [address] Steven Canchola MD [address] [place] [id number] 12/27/2023 Ancillary Procedure [facility] [address] [facility] [address] [place] [address] Chris De Leon MD [address] [place] [id number] documented as of this encounter Visit Diagnoses Not on filedocumented in this encounter Care Teams Director Of Occupational Therapy Relationship Specialty Start Date End Date Graham Licona MD [facility] [address] [place] [address] PCP - General Family Medicine 06/30/21 Trudi Grayson APRN TILE ERECTOR [address] [place] [id number] Assigned Heart and Vascular Provider 10/07/22 documented as of this encounter
--- OUTSIDE RECORDS SUMMARY | 2023-10-30 11:41 | XMS_ITS | Encounter Summary ---
Author Name Unknown Organization [place] Address [facility] [place] [address] Care Team Providers Care Professor Of Graphic Design Name Role Phone Herminia Coleman MD Primary Care Provider Ellie jamesilaGraham Calvo MD Primary Care Provider [phone] [facility] Primary Care Provider + Slava Hernandez PA-C Primary Care Provider [phone] Timothy Smith MD Unavailable Unavailable Graham Licona MD Primary Care Provider [phone] Tammy Montenegro PA-C Unavailable [phone] Trudi Grayson APRN PLUCK TRIMMER Unavailable [phone] Steven Canchola MD Unavailable + Encounter Details Date Type Department Care Team (Late st Contact Info) Description 09/12/2013 Office Visit-[facility] [address] [facility] [address] [place] [address] Tammy Montenegro PA-C [address] [facility] [address] [place], [place] [id number] Social History Tobacco Use Types Packs/Day Years [...] Physician: HERMINIA COLEMAN Referring Clinic: [facility] CURRENT DIAGNOSES 1. - Hyperlipidemia, 272.4 2. - Hypertension, 401.1 3. PA-Recent Unspecified, 410.91 4. - CAD, 414.00 5. [...] 2013. He saw Dr. Smith, his primary e marketing specialist, in May, at which time he was [...] walking in a big store, such as [employer]. He does workout at [employer] three times weekly and states he has [...] Occupation - retired; Residence - lives in [place] year round; REVIEW OF SYSTEMS GENERAL See [...] tablet, 1 p.o. twice daily, #180 (One [place] Eighty) MEDICATIONS STOPPED TODAY: losartan 25 mg [...] Office Visit [facility] [address] [facility] [address] [place] [phone] Trudi Grayson APRN PLUCK TRIMMER [address] [address] Steven Canchola MD [address] [place] [id number] 12/27/[address] [facility] [address] [facility] [address] [place] [phone] Chris De Leon MD [address] [place] [address] documented as of this encounter Visit Diagnoses Not on filedocumented in this encounter Care Teams Professor Of Graphic Design Relationship Specialty Start Date End Date Herminia Coleman MD PCP - General Family Practice 02/01/12 04/12/17 Graham Licona MD [facility] [address] [place] [address] PCP - General Family Practice 04/13/17 01/15/[address] [address] PCP - General 01/16/18 07/01/18 Slava Hernandez PA-C [address] [address] PCP - General Physician Flight Instructor 07/02/18 06/29/21 Graham Licona MD [facility] [address] [place] [address] PCP - General Family Medicine 06/30/21 Timothy Smith MD Assigned Heart and Vascular Provider 07/23/20 09/08/22 Tammy Montenegro PA-C [address] [place] [address] Assigned Heart and Vascular Provider 09/09/22 10/06/22 Trudi Grayson APRN [facility] [address] [id number] Assigned Heart and Vascular Provider 10/07/22 Steven Canchola MD [address] [place] [address] Cardiovascular Disease 07/12/23 documented as of this encounter
--- OUTSIDE RECORDS SUMMARY | 2023-10-30 11:41 | XMS_ITS | Encounter Summary ---
Author Name Unknown Organization [place] Address [address] [facility] [place] [address] Care Team Providers Care Lactation Nurse Name Role Phone Graham Licona MD Primary Care Provider Trudi Grayson APRN CAN LINE OPERATOR Unavailable [phone] Reason for Visit * Reason Onset Date Comments Patient Request 11/27/2022 Remote device ch suma Encounter Details Date Type Department Care Team (Late st Contact Info) Description 11/27/2022 Telephone [facility] [address] [facility] [address] [place] [address] Trudi Grayson APRN CAN LINE OPERATOR [address] [place], [place] [address] Patient Request (Remote device check ) Social [...] will watch for the transmission. Holden, RN CH ENGINE OPTIMIZATION ANALYST * Telephone Encounter - Michelle Noe - 11/27/2022 8:35 AM CST [facility] Call Center Phone Message May [...] Not Applicable Thank you! [facility] CH ENGINE OPTIMIZATION ANALYST documented in this encounter Plan of Treatment Upcoming Encounters Date Type Department Care Team (Late st Contact Info) Description 12/19/2023 9:45 AM CDT Office Visit [facility] [place] [address] [facility] [address] [place] [phone] Trudi Grayson APRN CAN LINE OPERATOR [address] [place] [address] Steven Canchola MD [address] [place] [address] 12/27/2023 Ancillary Procedure [facility] [address] [facility] [address] [place] [phone] Chris De Leon MD [address] [place] [address] documented as of this encounter Visit Diagnoses Not on filedocumented in this encounter Care Teams Lactation Nurse Relationship Specialty Start Date End Date Graham Licona MD [facility] [address] [place] [address] PCP - General Family Medicine 06/30/21 Trudi Grayson APRN CAN LINE OPERATOR [address] [place] [address] Assigned Heart and Vascular Provider 10/07/22 documented as of this encounter
--- OUTSIDE RECORDS SUMMARY | 2023-10-30 11:41 | XMS_ITS | Encounter Summary ---
Author Name Unknown Organization [place] Address [address] [place] [address] Care Team Providers Care Dye Winch Operator Name Role Phone Graham Licona MD Primary Care Provider [phone] Trudi Grayson APRN BRAKE LINING FINISHER ASBESTOS Unavailable [phone] Reason for Visit * Reason Onset Date Comments Implantable Devices 01/18/2023 Elevated Hea rtLogic Encounter Details Date Type Department Care Team (Late st Contact Info) Description 01/18/2023 Telephone [facility] [address] [facility] [address] [place] [phone] Eve Santos, [...] AM CDT Office Visit [facility] [place] [address] [facility] [address] [place] [phone] Trudi Grayson APRN BRAKE LINING FINISHER ASBESTOS [address] [address] Steven Canchola MD [address] [place] [id number] 12/27/2023 Ancillary Procedure [facility] [address] [facility] [address] [place] [phone] Chris De Leon MD [address] [place] [address] documented as of this encounter Visit Diagnoses Not on filedocumented in this encounter Care Teams Dye Winch Operator Relationship Specialty Start Date End Date Graham Licona MD [facility] [address] [place] [address] PCP - General Family Medicine 06/30/21 Trudi Grayson APRN BRAKE LINING FINISHER ASBESTOS [address] [place] [address] Assigned Heart and Vascular Provider 10/07/22 documented as of this encounter
== END 2023-10-29 14:35 | disposition home or self-care (01) ==
LOC: AMB 10-30 11:37
PROVIDERS: PCP Family Medicine; Visit Provider Family Medicine
DX: Z99.3 Dependence on wheelchair (principal)
CPT/HCPCS: A0425; A0428

== ENCOUNTER 2023-11-26 17:38 | Outpatient (CLI) | payer MEDICARE, BC, SELFPAY | END 2023-11-26 17:39 | disposition home or self-care (01) | LOC: AMB 12-06 12:32 | PROVIDERS: PCP Family Medicine; Visit Provider Family Medicine | DX: R53.1 Weakness (principal); I95.9 Hypotension, unspecified | CPT/HCPCS: A0425; A0427 ==

== ENCOUNTER 2023-11-26 18:21 | Emergency (ER) | payer MEDICARE, BC, SELFPAY ==
[2023-11-26] VITALS (16 sets, daily range): BP systolic 70–101; BP diastolic 39–65; PULSE 49–51; RESP 20–24; TEMP 35.8; O2SAT 87–98; BMI 35.6
--- NOTE | 2023-11-26 18:40 | XR_ITS ---
Patient: RADHA FAROOQ Facility:?[facility] Patient ID:?[id number] Site Patient ID:?[id number]. Site :?[id number] Study:?XRay-Chest PORTABLE ONE VIEW-11/26/2023 7:10:04 PM Ordering Physician:STARR Final Report: Indication: Hypotension. Edema. Technique: Chest 1 view. Comparison: None. Findings/Impression: Cardiovascular and mediastinum: Marked cardiomegaly. Unremarkable mediastinum. Pacemaker/ICD is present. Lungs and pleural space: Moderate central pulmonary edema suggesting fluid overload or CHF. No lobar consolidation. No significant effusions no pneumothorax. Bones and soft tissues: No acute findings. Dictated by Greg Cleveland MD @ 11/26/2023 9:21:07 PM Signed by:?Greg Cleveland MD @11/26/2023 9:21:07 PM (Electronic Signature)
--- NOTE | 2023-11-26 18:40 | ED_ITS ---
HPI - General Adult General Time Seen by Provider: 18:40 Date Seen: 11/26/23 Chief complaint: Weakness Stated complaint: Sick Time Seen by Provider: 11/26/23 18:25 Source: patient, EMS and RN notes reviewed Mode of arrival: EMS Limitations: no limitations History of Present Illness HPI narrative: Mary is an 83-year-old male brought in by EMS from home with feeling ill. His blood pressure was reportedly 80s per EMS, nursing staff grabbed me as I was walking by in the hallway. Mary was convalescing in the skilled nursing, discharge 2 days ago. He states he has been feeling sick maybe about the last week or so. Denies respiratory infection. He denies any cough or cold symptoms, no fever. He states his edema in his legs and abdomen is been increasing, feels more bloated. He notes he has maybe had 16 lb weight gain over the last month. He does use CPAP. He also reportedly had oxygen saturation of 80% when they 1st got there. They had him on 10 L non-rebreather and was 96% here. Nursing staff has titrated his oxygen down. He denies chest pain, no shortness of breath at this time. He is questioned multiple times if he is having any difficulty ellen thing any states no. He has had a history of cellulitis but denies any leg pain. He states that just more swollen. He states when he was in the skilled nursing they did decrease his Lasix dose down, he took his normal does an updated himself this morning, believes it was 40 mg today. Related Data Home Medications Medication Instructions Recorded Confirmed acetaminophen 500 mg tablet 1,000 mg PO TID PRN 04/11/22 10/21/23 amiodarone 200 mg tablet 200 mg PO DAILY 04/11/22 10/21/23 furosemide 40 mg tablet 40 mg PO DAILY 04/11/22 10/21/23 loratadine 10 mg tablet (Allergy 10 mg PO DAILY PRN 04/11/22 10/21/23 Relief (loratadine)) nitroglycerin 0.4 mg sublingual 0.4 mg sublingual ONCE PRN 04/11/22 10/21/23 tablet apixaban 2.5 mg tablet (Eliquis) 1.25 mg PO BID 10/12/23 10/21/23 insulin glargine 100 unit/mL (3 14 unit subcut DAILY 10/12/23 10/21/23 mL) subcutaneous pen (Lantus Solostar U-100 Insulin) metoprolol succinate 50 mg 50 mg PO DAILY 10/12/23 10/21/23 tablet,extended release 24 hr atorvastatin 20 mg tablet 20 mg PO HS 10/21/23 10/21/23 fluticasone propionate 50 2 spray intranasal DAILY 10/21/23 10/21/23 mcg/actuation nasal spray,suspension levothyroxine 50 mcg tablet 50 mcg PO DAILY 10/21/23 10/21/23 Previous Rx's Medication Instructions Recorded acyclovir 400 mg tablet 400 mg PO TID #42 tabs 10/10/22 tamsulosin 0.4 mg capsule See Rx Instructions .Route 11/19/22 .COMPLEX #90 caps glimepiride 2 mg tablet 2 mg PO DAILY #90 tabs 03/05/23 pen needle, diabetic 31 gauge x #100 ea 04/25/23 5/16 (Pen Needle) blood sugar diagnostic (Contour #100 ea 07/24/23 Next Test Strips) fenofibrate 160 mg tablet 160 mg PO DAILY #90 tabs 09/19/23 metolazone 2.5 mg tablet 2.5 mg PO 3XW #60 tabs 09/19/23 omeprazole 20 mg capsule,delayed 20 mg PO BID #180 caps 09/19/23 release levothyroxine 50 mcg tablet 50 mcg PO DAILY #30 tabs 10/29/23 nystatin 100,000 unit/gram topical 1 applic topical TID #30 grams 10/29/23 cream potassium chloride 10 mEq 20 meq (2 x 10 mEq) PO BIDWM #120 10/29/23 capsule,extended release caps tramadol 50 mg tablet 50 mg PO Q6H PRN #10 tabs 10/29/23 Allergies Allergy/AdvReac Type Severity Reaction Status Date / Time adhesive Allergy Unknown Rash Verified 11/26/23 18:36 rosuvastatin Allergy Unknown muscle Verified 11/26/23 18:36 soreness/weakness Review of Systems Status of ROS: Reports: 6 or more systems reviewed and unremarkable except as noted in History and below PFSH PFSH Medical History Elevated troponin ?R79.89 - Other specified abnormal findings of blood chemistry (ICD-10) Diabetic neuropathy ?E11.40 - Type 2 diabetes mellitus with diabetic neuropathy, unspecified (ICD-10) Anemia ?D64.9 - Anemia, unspecified (ICD-10) CKD (chronic kidney disease) stage 3, GFR 30-59 ml/min ?N18.30 - Chronic kidney disease, stage 3 unspecified (ICD-10) Latent autoimmune diabetes in adults, managed as type 2 ?E13.9 - Other specified diabetes mellitus without complications (ICD-10) Hypertension (04/09/12) ?I10 - Essential (primary) hypertension (ICD-10) Gastric ulcer ?K25.9 - Gastric ulcer, unspecified as acute or chronic, without hemorrhage or perforation (ICD-10) Congestive heart failure ?I50.9 - Heart failure, unspecified (ICD-10) Atrial flutter (04/09/12) ?I48.92 - Unspecified atrial flutter (ICD-10) 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) ?I25.10 - Atherosclerotic heart disease of [place] coronary artery without angina pectoris (ICD-10) Hyperlipidemia ?E78.5 - Hyperlipidemia, unspecified (ICD-10) Obstructive sleep apnea ?G47.33 - Obstructive sleep apnea (adult) (pediatric) (ICD-10) Risk for falls ?Z91.81 - History of falling (ICD-10) Venous stasis ulcer ?I83.009 - Varicose veins of unspecified lower extremity with ulcer of unspecified site (ICD-10) ?L97.909 - Non-pressure chronic ulcer of unspecified part of unspecified lower leg with unspecified severity (ICD-10) Cellulitis of lower extremity ?L03.119 - Cellulitis of unspecified part of limb (ICD-10) Canales's esophagus with dysplasia, unspecified ?K22.719 - Canales's esophagus with dysplasia, unspecified (ICD-10) Prostate mass ?N42.89 - Other specified disorders of prostate (ICD-10) Melanoma of eye ?C69.90 - Malignant neoplasm of unspecified site of unspecified eye (ICD-10) History of ventricular tachycardia ?Z86.79 - Personal history of other diseases of the circulatory system (ICD- 10) Health care directive on file (11/29/21) ?Z78.9 - Other specified health status (ICD-10) Surgical History History of hip surgery (11/10/21) ?Z98.890 - Other specified postprocedural states (ICD-10) Status post implantation of automatic cardioverter/defibrillator (AICD) ?Z95.810 - Presence of automatic (implantable) cardiac defibrillator (ICD-10) 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) ?Z96.641 - Presence of right artificial hip joint (ICD-10) 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 Pt reports stair lift at home which has really helped In the past 12 months, utilities in danger of being shut off: no In past 12 months, lack of transportation kept you from medical appts, meetings, work, or getting things needed for daily living: no In the past 12 mos, have been you worried that your food would run out before you had money to buy more?: never true In the past 12 mos, the food you bought just didn't last and you didn't have money to buy more?: never true Highest level of school completed/degree received: Associate degree: occupational, technical, vocational program Smoking Status: Never smoker How often do you have a drink containing alcohol: never How often do you have six or more drinks on one occasion: Never AUDIT-C Alcohol total score: 0 Non-prescribed substance use: denies use Caffeine: No How often does anyone, including family, friends and others, physically hurt you : never How often does anyone, including family, friends and others, insult or talk down to you: never How often does anyone, including family, friends and others, threaten you with harm: never How often does anyone, including family, friends and others, scream or curse at you: never Little interest or pleasure in doing things: not at all Feeling down, depressed, or hopeless: not at all service: No Exam Const: Vital Signs, click to edit/add: Vital Signs - 24 hr 11/26/23 18:37 11/26/23 18:53 11/26/23 18:53 Temperature 96.5 F L Pulse Rate Pulse Rate [Pulse Oximeter] 50 L Respiratory Rate 20 Blood Pressure Blood Pressure [Le ft Upper Arm] 90/39 L Pulse Oximetry 96 98 Oxygen Delivery Me thod Nasal Cannula Nasal Cannula Oxygen Flow Rate 5 2 11/26/23 19:24 11/26/23 19:34 11/26/23 19:47 Temperature Pulse Rate 50 L 51 L 50 L Pulse Rate [Pulse Oximeter] Respiratory Rate 24 20 Blood Pressure 80/61 L 91/53 L Blood Pressure [Le ft Upper Arm] Pulse Oximetry 94 94 95 Oxygen Delivery Me thod Nasal Cannula Oxygen Flow Rate 2 11/26/23 20:00 11/26/23 20:02 11/26/23 20:15 Temperature Pulse Rate 49 L 50 L 50 L Pulse Rate [Pulse Oximeter] Respiratory Rate Blood Pressure 91/57 L Blood Pressure [Le ft Upper Arm] Pulse Oximetry 90 90 87 L Oxygen Delivery Me thod Oxygen Flow Rate 11/26/23 20:17 11/26/23 20:30 11/26/23 20:32 Temperature Pulse Rate 50 L 50 L 50 L Pulse Rate [Pulse Oximeter] Respiratory Rate 24 Blood Pressure 101/65 88/61 L Blood Pressure [Le ft Upper Arm] Pulse Oximetry 88 88 94 Oxygen Delivery Me thod Nasal Cannula Oxygen Flow Rate 2 11/26/23 20:39 11/26/23 20:45 11/26/23 20:47 Temperature Pulse Rate 50 L 50 L 50 L Pulse Rate [Pulse Oximeter] Respiratory Rate Blood Pressure 92/55 L 93/61 Blood Pressure [Le ft Upper Arm] Pulse Oximetry 96 94 96 Oxygen Delivery Me thod Oxygen Flow Rate 11/26/23 21:01 11/26/23 21:17 Temperature Pulse Rate 50 L 50 L Pulse Rate [Pulse Oximeter] Respiratory Rate 22 20 Blood Pressure 87/59 L 70/57 L Blood Pressure [Le ft Upper Arm] Pulse Oximetry 97 97 Oxygen Delivery Me thod Oxygen Flow Rate Sleepy but arousable 83-year-old gentleman. Speech is normal when he does talk, is speaking in short phrases but is not dyspneic. Sclera clear, conjugate gaze. Symmetrical facial function. Neck is thick, difficult to assess jugular venous distension no masses noted. Poor air entry, difficult to assess lung sounds, underlying slower heart rate, cannot appreciate any significant murmurs. Do not hear any ectopy or gallop. Abdomen is obese, feels like he might have possible fluid, does have some abdominal wall bruising which she states is from Lasix shots. His abdomen is nontender though. He has stocking at sounds lower extremities, these are taken down, appreciate no active cellulitis at this time. Has significant pitting edema all the way up his legs bilaterally, looks symmetric. Documenting provider has reviewed patient's vital signs: yes Course Course ED Course: Nursing staff had initiated a L of IV fluids because patient was hypotensive, I did ask them to stop that and just TKO it for medication. He is obviously fluid overloaded, likely in congestive heart failure and is hypotensive. I did have a chance to review his last hospitalization, he was noted to have some congestive heart failure and low blood pressures, found to be difficult to manage. Last EF in the chart in October was 63%. Reevaluation(s) Time of Reevaluation #1: 19:45 Reevaluation #1: Have heard back from [facility], they have no bed capacity at all, will not tonight. I did call his Prachi back. She was begging us to keep him here. I reviewed with her that he was quite ill, if she was okay with him dying because we could not meet his care needs here, we could potentially board him in the ER until tomorrow if there were beds. She is not comfortable with that, she wants what ever can be done to be done. Thus, he really does need transfer to higher level of care. We are going to continue to work on transfer. We have initiated Lasix drip low-dose, have norepinephrine for pressure support. We are waiting labs back. This seems like he has congestive heart failure/fluid overload. He is not in any respiratory difficulty, Time of Reevaluation #2: 20:20 Reevaluation #2: Nursing staff reports that patient is on his CPAP, he is deep asleep and O2 sats are in the mid to upper 80s. We will try him on our CPAP and try titrating oxygen for goal of O2 sats 90%. Time of Reevaluation #3: 20:55 Reevaluation #3: Patient is transferring out, is making some urine, has not been on IV Lasix exception long at this time. Last systolic blood pressure saw was 101. We are titrating him on CPAP so he is not hypoxic. Again, do not feel that he necessitates BiPAP at this time. I see no evidence of infection. Still awaiting his over-read of his chest x-ray by Radiology. He will be transferring to ICU at [facility], EMS is here. Consultations Consultation #1: Spoke with the hospitalist Dr. Crandall. She accepts patient. We reviewed that he is not on BiPAP at this time. We are going to try him on his CPAP, will consider are CPAP if we need oxygen delivered, increase to BiPAP if need be. Overall, his respiratory status seems stable that he does not need BiPAP support. We will await bed placement for him. Time: 20:07 Vital Signs Vital signs: Initial Vital Signs Temperature 96.5 F L 11/26/23 18:37 Temperature Source Temporal Artery Scan 11/26/23 18:37 Pulse Rate 50 L 11/26/23 18:37 Respiratory Rate 20 11/26/23 18:37 Blood Pressure 90/39 L 11/26/23 18:37 Blood Pressure Mean 56 L 11/26/23 18:37 Blood Pressure Position Semi-Fowlers 11/26/23 18:37 Pulse Oximetry 96 11/26/23 18:37 Oxygen Delivery Method Nasal Cannula 11/26/23 18:37 Oxygen Flow Rate 11/26/23 18:37 Vital Signs Temperature 96.5 F L 11/26/23 18:37 Pulse Rate 50 L 11/26/23 18:37 Respiratory Rate 20 11/26/23 18:37 Blood Pressure 90/39 L 11/26/23 18:37 Pulse Oximetry 96 11/26/23 18:37 Oxygen Delivery Method Nasal Cannula 11/26/23 18:37 Oxygen Flow Rate 5 11/26/23 18:37 Temperature 96.5 F L 11/26/23 18:37 Pulse Rate 50 L 11/26/23 21:17 Respiratory Rate 20 11/26/23 21:17 Blood Pressure 70/57 L 11/26/23 21:17 Pulse Oximetry 97 11/26/23 21:17 Oxygen Delivery Method Nasal Cannula 11/26/23 20:32 Oxygen Flow Rate 2 11/26/23 20:32 Medications Administered Medications: Discontinued Medications Generic Name Dose Route Start Last Admin Trade Name Freq PRN Reason Stop Dose Admin Furosemide 120 mg/ Dextrose 120 mls @ 5 mls/hr 11/26/23 19:15 11/26/23 19:40 IV 5 mls/hr Q20H JD Administration Norepinephrine/Dextrose 4,000 mcg in 250 mls @ 43.375 mls/hr 11/26/23 19:14 11/26/23 19:38 Norepinephrine Infusion IV 0.05 mcg/kg/min CONT PRN 21.69 mls/hr Administration Protocol 0.1 MCG/KG/MIN Sodium Chloride 1,000 mls @ 35 mls/hr 11/26/23 21:30 11/26/23 21:10 0.9 % Sodium Chloride 1000 Ml IV 0 mls/hr .Q24H JD Infusion Medical Decision Making Lab Data Lab results reviewed: Yes I reviewed the patient's lab results Labs: Lab Results 11/26/23 11/26/23 11/26/23 Range/Units 18:50 18:56 20:05 WBC 8.69 (4.50-11.00) K/uL RBC 3.59 L (4.30-5.90) m/uL Hgb 10.6 L (13.5-17.5) gm/dL Hct 34.9 L (37.0-53.0) % MCV 97 (80-100) fL MCH 30 (26-34) pg MCHC 30 L (32-36) gm/dL RDW Coeff of Annabelle 15.5 (11.5-15.5) % Plt Count 316 (140-440) K/uL Neut % (Auto) 85.2 H (42.0-72.0) % Lymph % (Auto) 6.2 L (20-44) % [place] % (Auto) 7.2 (0.0-11.0) % Eos % (Auto) 1.0 (0.0-7.0) % Baso % (Auto) 0.2 (0.0-3.0) % Neut # (Auto) 7.40 H (1.7-7.0) K/uL Lymph # (Auto) 0.50 L (0.90-2.90) K/uL [place] # (Auto) 0.60 (0.00-0.90) K/UL Eos # (Auto) 0.09 (0.00-0.50) K/uL Baso # (Auto) 0.02 (0.00-0.30) K/uL Abs Immat Gran (auto) 0.02 (0.00-0.30) K/uL Imm/Tot Granulo (auto) 0.2 % VBG pH 7.268 L (7.32-7.43) VBG pCO2 53 H (40-50) mmHG VBG pO2 47.0 (25-47) mmHG VBG HCO3 24 (21-28) mmol/L Sodium 140 (135-149) mmol/L Potassium 5.6 H (3.6-5.1) mmol/L Chloride 102 (96-114) mmol/L Carbon Dioxide 21 (20-32) mmol/L Anion Gap 17 H (7-15) mEq/L BUN 99 H (7-30) mg/dL Creatinine 3.7 H (0.5-1.5) mg/dL Estimated Creat Clear 15.55 Estimated GFR 15 ml/min Glucose 161 H (60-115) mg/dL Lactate 2.7 H (0.5-1.9) mmol/L Calcium 9.4 (8.4-10.6) mg/dL Magnesium 3.0 H (1.5-2.6) mg/dL Total Bilirubin 0.8 (0.1-1.5) mg/dL Direct Bilirubin 0.7 H (0.0-0.5) mg/dL AST 43 H (12-35) U/L ALT 19 (4-50) U/L Alkaline Phosphatase 63 (40-150) U/L Troponin I 0.02 (0.01-0.04) ng/mL C-Reactive Protein 3.1 H (0.5-1.0) mg/dL NT-Pro-B Natriuret Pep 8270 pg/mL Total Protein 7.7 (6.0-8.3) g/dL Albumin 4.1 (3.3-5.0) g/dL Procalcitonin 0.25 (<0.50) ng/mL Urine Color Yellow (Yellow) Urine Appearance Cloudy A (Clear) Urine pH 5.0 (5.0-8.5) Ur Specific [place] 1.025 (1.000-1.030) Urine Protein 2+ A (Negative) Urine Glucose (UA) Negative (Negative) Urine Ketones Negative (Negative) Urine Blood 2+ A (Negative) Urine Nitrite Negative (Negative) Urine Bilirubin Negative (Negative) Urine Urobilinogen 0.2 (0.2-1.0) Ur Leukocyte Esterase 1+ A (Negative) Urine RBC 10-25 A (0-2) Urine WBC 10-25 A (0-5) Ur Squamous Epith Cells Few (None-Few) Urine Bacteria Moderate A (None) SARS-CoV-2 (PCR) Negative SARS-CoV-2 (Negative) Influenza Type A (PCR) Negative PCR FLU A (Negative) Influenza Type B (PCR) Negative PCR FLU B (Negative) RSV (PCR) Negative PCR RSV (Negative) POC Troponin I 0.04 (0.01-0.04) ng/ml Imaging Data Chest x-ray: Attestation: I have reviewed the pertinent imaging results. My impression: See cardiomegaly and some fluid overload. Did compare to prior x-rays. Await Radiology over-read. Radiologist's impression: Patient: RADHA FAROOQ Facility:?[facility] Patient ID:?[id number] Site Patient ID:?[id number]. Site :?[id number] Study:?XRay Chest PORTABLE ONE VIEW-11/26/2023 7:10:04 PM Ordering Physician:STARR Final Report: Indication: Hypotension. Edema. Technique: Chest 1 view. Comparison: None. Findings/Impression: Cardiovascular and mediastinum: Marked cardiomegaly. Unremarkable mediastinum. Pacemaker/ICD is present. Lungs and pleural space: Moderate central pulmonary edema suggesting fluid overload or CHF. No lobar consolidation. No significant effusions no pneumothorax. Bones and soft tissues: No acute findings. Dictated by Greg Cleveland MD @ 11/26/2023 9:21:07 PM (Electronic Signature) ECG Data Attestation: I personally reviewed and interpreted this ECG as follows: (Ventricular paced rhythm, 50 beats per minute.) Prior ECG tracings: not available for review Critical Care Time Critical Care Time Critical Care Time: Yes Attestation: The patient required my highest level preparedness to intervene emergently and I personally spent this critical care time directly and personally managing the patient. This critical care time included: Obtaining a history; Examining the patient; Pulse oximetry; Ordering and reviewing of studies; Arranging urgent treatment with development of a management plan; Evaluation of patients response to treatment; Frequent reassessment discussions with other providers. This critical care time was performed to assess and manage the high probability of imminent life-threatening deterioration that could result in multiorgan failure. It was exclusive of separate billable procedures and treating other patients and teaching time. Total Critical Care Time in Minutes: 90 Discharge Plan Discharge Clinical Impression: Acute hypotension Congestive heart failure Qualifiers: Heart failure type: unspecified Heart failure chronicity: acute on chronic Qualified Code(s): I50.9 - Heart failure, unspecified Patient Disposition: [facility] Discharge Location: [facility] Condition: Unchanged
[2023-11-26] MEDS: 0.9 % SODIUM CHLORIDE 1000 ml 1,000 ML 35 ML IV (18:50)
[2023-11-26 19:05] LABS: HCO3 VBG 24 mmol/L (21-28); Lactate* 2.7 mmol/L (0.5-1.9); PCO2 VBG 53 mmHG (40-50); pH VBG 7.268 (7.32-7.43)
[2023-11-26 19:08] LABS: Basophils Absolute Auto 0.02 K/uL (0.00-0.30); Basophils Percent Auto 0.2 % (0.0-3.0); Eosinophils Absolute Auto 0.09 K/uL (0.00-0.50); Hematocrit 34.9 % (37.0-53.0); Hemoglobin* 10.6 gm/dL (13.5-17.5); Immature Granulocytes Abs Auto 0.02 K/uL (0.00-0.30); Immature Granulocytes Pct Auto 0.2 %; Lymphocytes Percent Auto 6.2 % (20-44); Mean Corpuscular HGB Conc 30 gm/dL (32-36); Mean Corpuscular Hemoglobin 30 pg (26-34); Mean Corpuscular Volume 97 fL (80-100); Monocytes Percent Auto 7.2 % (0.0-11.0); Neutrophils Percent Auto 85.2 % (42.0-72.0); Platelet Count* 316 K/uL (140-440); RDW Coefficient of Variation % 15.5 % (11.5-15.5); Red Blood Count 3.59 m/uL (4.30-5.90); White Blood Count* 8.69 K/uL (4.50-11.00)
[2023-11-26 19:12] LABS: Slide Review Reflex No
[2023-11-26 19:12] LABS: Troponin, Point-of-Care* 0.04 ng/ml (0.01-0.04)
[2023-11-26 19:22] LABS: Chloride* 102 mmol/L (96-114)
[2023-11-26 19:23] LABS: Albumin* 4.1 g/dL (3.3-5.0); Sodium* 140 mmol/L (135-149)
[2023-11-26 19:24] LABS: Potassium* 5.6 mmol/L (3.6-5.1)
[2023-11-26 19:26] LABS: Alkaline Phosphatase* 63 U/L (40-150); Anion Gap 17 mEq/L (7-15); Aspartate Amino Transferase* 43 U/L (12-35); Bilirubin Direct* 0.7 mg/dL (0.0-0.5); Bilirubin Total* 0.8 mg/dL (0.1-1.5); Carbon Dioxide* 21 mmol/L (20-32); Creatinine* 3.7 mg/dL (0.5-1.5); Est. Creatinine Clearance* 15.55; Estimated Glomerular Filt Rate 15 ml/min; Total Protein* 7.7 g/dL (6.0-8.3)
[2023-11-26 19:27] LABS: Alanine Aminotransferase* 19 U/L (4-50); Blood Urea Nitrogen* 99 mg/dL (7-30); Calcium* 9.4 mg/dL (8.4-10.6); Glucose* 161 mg/dL (60-115)
[2023-11-26 19:29] LABS: C Reactive Protein* 3.1 mg/dL (0.5-1.0)
[2023-11-26 19:37] LABS: Troponin I* 0.02 ng/mL (0.01-0.04)
[2023-11-26 19:42] LABS: Procalcitonin* 0.25 ng/mL (<0.50)
[2023-11-26 19:44] LABS: NT Pro B Type NatriureticPept* 8270 pg/mL
[2023-11-26 19:47] LABS: PCR FLU A Negative PCR FLU A (Negative); PCR FLU B Negative PCR FLU B (Negative); PCR RSV Negative PCR RSV (Negative); SARS PCR* Negative SARS-CoV-2 (Negative)
[2023-11-26 20:12] LABS: Appearance Urine Cloudy (Clear); Bilirubin Urine Negative (Negative); Blood Urine 2+ (Negative); Color Urine Yellow (Yellow); Glucose Urine Negative (Negative); Ketones Urine Negative (Negative); Leukocyte Esterase Urine 1+ (Negative); Nitrite Urine Negative (Negative); Protein Urine 2+ (Negative); Specific Gravity Urine 1.025 (1.000-1.030); Urobilinogen Urine 0.2 (0.2-1.0)
[2023-11-26 20:24] LABS: Bacteria Urine Moderate; Squamous Epithelial Cell Urine Few (None-Few)
--- NOTE | 2023-11-26 20:44 | ED.NURSE ---
GCS 14. Oriented x4. Frequently falls back to sleep, arousable to voice. Denies pain. Trialed Home CPAP for aprox 30-45min, Sats down to 87% while asleep. Switched to o2 NC @2LPM, Sats 94-96%. RR 24, unlabored. Levophed gtt @ 0.05 mcg/kg/min, BP MAP >65. Heart rhythm paced per monitor, HR 49. Cool extremities, at baseline. Warm blankets applied. Per Dr. Lancaster, Full Code at this time. BLE wrapped in AMINTA bandaged, non-pitting edema noted. Multiple bruises noted throughout body on arrival to ED. Lau placed @2000, hanging to gravity. Cloudy yellow urine noted with sediment. #20G IV in R FA with Lasix gtt @5ml/hr. #18G IV in L FA with Levophed gtt. CMS intact. No discoloration noted in LUE.
--- NOTE | 2023-11-26 21:08 | ED.NURSE ---
Report given to Alona DIRECTOR OF RESIDENTIAL SERVICES. Pt will go to ICU Rm [id number]. EMS in ED for report.
--- NOTE | 2023-11-27 01:24 | PC.NURSE ---
chart accessed due to [facility] called for med clarification.
== END 2023-11-26 21:35 | disposition short-term general hospital (02) ==
PROVIDERS: Emergency Provider Family Medicine; PCP Family Medicine
DX: I95.9 Hypotension, unspecified (principal); I50.9 Heart failure, unspecified
CPT/HCPCS: 36415; 71045; 80053; 81001; 82248; 82803; 83605; 83735; 83880; 84145; 84484; 85025; 86140; 87040; 87086; 87186; 87631; 93005; 94761; 99285; 99291; 99292; J1940; J7030

== ENCOUNTER 2023-11-26 21:33 | Outpatient (CLI) | payer MEDICARE, BC, SELFPAY | END 2023-11-26 21:34 | disposition home or self-care (01) | LOC: AMB 12-08 06:30 | PROVIDERS: PCP Family Medicine; Visit Provider Family Medicine | DX: R53.1 Weakness (principal); R41.82 Altered mental status, unspecified | CPT/HCPCS: A0425; A0434 ==